=== PATIENT | male | born 1955 | race Caucasian/White ===

== ENCOUNTER 2023-02-16 16:22 | Emergency (ER) | payer BC, SELFPAY ==
[2023-02-16 16:26] VITALS: BP 151/95; PULSE 117; RESP 20; TEMP 36.4; O2SAT 97; BMI 25.8
--- NOTE | 2023-02-16 16:44 | ED.GENADUL1 ---
HPI - General Adult General Chief complaint: Fall Stated complaint: NOSE INJURY Time Seen by Provider: 02/16/23 16:41 Source: patient Source information: patient Mode of arrival: walk-in Limitations: no limitations History of Present Illness HPI narrative: Patient is a 67-year-old male presents to the Emergency Room with his spouse for evaluation of laceration to his nose. Patient states this morning around 5:50 AM he had to use the restroom and quickly got up from bed and fell. Patient states he struck his lower lip and bridge of his nose. He denies any loss of consciousness. He denies any headache or visual disturbance. Patient is unsure of his last tetanus. States he attempted to control the bleeding at home, and multiple people advised him to get his laceration looked at for possible repair and for a tetanus update. Patient denies any neck pain, denies any chest pain or shortness of breath. He denies passing out and states that he was in a hurry when he tripped. He has been observed for over twelve hours without any worsening symptoms. Patient denies any dental pain but notes the inner part of his lower lip is sore. Patient denies any facial numbness or tingling. Location: Reports face Relieving factors: Reports cold therapy Exacerbating factors: Reports movement Related Data Previous Rx's Medication Instructions Recorded cephalexin 500 mg capsule 500 mg PO TID 5 days #15 caps 02/16/23 Allergies Allergy/AdvReac Type Severity Reaction Status Date / Time No Known Drug Allergies Allergy Verified 02/16/23 16:52 Review of Systems ROS Constitutional Denies: fever or chills Ears, nose, mouth, and throat Reports: mouth pain; Denies: throat pain, neck pain, difficulty swallowing or swelling of lips/tongue Cardiovascular Denies: chest pain Respiratory Denies: shortness of breath or cough Gastrointestinal Denies: abdominal pain Musculoskeletal Denies: back pain or neck pain Neurological Denies: headache, weakness in extremities, lack of coordination, behavioral changes or slurred speech Psychiatric Denies: anxiety PFSH PFSH Social History Smoking status: Never smoker Exam Narrative Exam Narrative: Nurses notes and vital signs reviewed and patient is not hypoxic. General: The patient appears well and in no apparent distress. Patient is resting comfortably on cart. Skin: Warm, dry, no pallor noted. 2 cm left inguinal-like laceration to the bridge of the nose. Mild symmetric swelling noted to the bridge of the nose. Head: Normocephalic, atraumatic with exception to laceration to the bridge of his nose. Facial sensation equal and symmetric frontal maxillary and submandibular. Neck: Supple, trachea mid-line, no tenderness, no lymphadenopathy Eye: Pupils are equal, round and reactive to light, EOMI, no evidence of palsy or diplopia on exam. Ears, Nose, Mouth, and Throat: TM are clear, normal light reflex, mild cerumen in bilateral canals, no hemotympanum. No evidence of acute epistaxis with inspection of the nares. Patient breathes out of both nares easily without discomfort. Oral mucosa is moist, healing laceration in the inner lower lip, mucosal surface. No dental tenderness. No posterior oropharynx erythema or hypertrophy, uvula is mid-line, tongue without injury. Cardiovascular: Regular Rate and Rhythm Respiratory: Patient is in no distress, no accessory muscle use, lungs are clear to auscultation, no wheezing, rales or rhonchi. Chest Wall: no tenderness Back: non-tender, no CVA tenderness, denies pain to the cervical, thoracic, or lumbar spine. Musculoskeletal: normal ROM, no tenderness, no swelling GI: Normal bowel sounds, no tenderness to palpation, no masses appreciated. No rebound, guarding, or rigidity noted. Neurological: A&O x4, patient walks well. Psychiatric: Cooperative Constitutional Vital Signs - 24 hr 02/16/23 16:26 Temperature 97.6 F Pulse Rate [Monitor] 117 H Respiratory Rate 20 Blood Pressure [Left Arm] 151/95 H Pulse Oximetry 97 Oxygen Delivery Method Room Air Course Vital Signs Vital signs: Vital Signs Temperature 97.6 F 02/16/23 16:26 Pulse Rate 117 H 02/16/23 16:26 Respiratory Rate 20 02/16/23 16:26 Blood Pressure 151/95 H 02/16/23 16:26 Pulse Oximetry 97 02/16/23 16:26 Oxygen Delivery Method Room Air 02/16/23 16:26 Temperature 97.6 F 02/16/23 16:26 Pulse Rate 117 H 02/16/23 16:26 Respiratory Rate 20 02/16/23 16:26 Blood Pressure 151/95 H 02/16/23 16:26 Pulse Oximetry 97 02/16/23 16:26 Oxygen Delivery Method Room Air 02/16/23 16:26 Medical Decision Making [facility] Narrative Medical decision making narrative: Patient presents twelve hours status post fall at home, laceration of the bridge of his nose that keeps opening when he smiles, with rebleeding. Prompting Emergency Room visit. Patient denies headache or visual disturbance. Walks with steady gait. Also requiring a tetanus update. Patient advised to rinse his mouth after meals, observation of intraoral laceration. We discussed suture removal in 5-7 days, optimal skincare for healing. Patient be placed on antibiotic for five days to take with food with risks and benefits discussed. Patient and spouse agreeable with recommendations. [place] discussion at the bedside regarding imaging, patient is without any cervical spine tenderness, no symptoms of closed head injury requiring CT scan and facial CT scan discussed with concerns of possible nasal bone fracture and patient would like to wait for swelling to subside before any further consideration with discussion for ENT follow-up as needed . Verbal and written closed head injury instructions discussed, patient is ready been over twelve hours with out any developing symptoms. The patient is to followup with primary care physician in next 5-7 days or to return to the emergency department should any of the signs or symptoms worsen or new symptoms develop. Patient had questions answered. The patient agrees with the following Diagnosis and Treatment plan and the patient will be discharged home. Discharge Plan Discharge Chief Complaint: Fall Clinical Impression: Intraoral laceration, Closed head injury, Laceration of nose Patient Disposition: Home, Self-Care Time of Disposition Decision: 05:30 Condition: Good Prescriptions / Home Meds: New cephalexin 500 mg capsule 500 mg PO TID 5 Days Qty: 15 0RF Instructions: Care For Your Stitches (ED), Head Injury (ED), Facial Laceration (ED) Stand Alone Forms: Portal Instructions Referrals: BEKA CANNON [Primary Care Provider] - 1 week Procedures ED Procedure Instructions Procedures Procedures: Laceration repair: Done under sterile conditions. The use of Betadine was used to prep and clean the area. Topical let applied. The wound was irrigated copiously with normal saline. The wound was explored there was no evidence of foreign material. The laceration was approximated with 6-0 nylon. 6 simple interrupted sutures were placed. Patient tolerated the procedure well. The patient was neurovascularly intact post. the patient had bacitracin applied to the laceration and a dry sterile dressing was place. The patient will need to follow-up in the next 5-7 days for removal.
[2023-02-16] MEDS: ADACEL DIPH,PERTUSS(ACELL),TET VAC/PF 0.5 ML ADULT SYRINGE IM (17:08)
[2023-02-16 17:29] VITALS: BP 158/87; PULSE 97; RESP 18; O2SAT 97
== END 2023-02-16 17:30 | disposition home or self-care (01) ==
PROVIDERS: Emergency Provider Emergency Medicine; PCP Family Medicine
DX: S01.21XA Laceration without foreign body of nose, initial encounter (principal); S09.8XXA Other specified injuries of head, initial encounter; S01.511A Laceration without foreign body of lip, initial encounter; Z23 Encounter for immunization; W19.XXXA Unspecified fall, initial encounter
CPT/HCPCS: 12011; 90471; 90715; 99283

== ENCOUNTER 2023-07-18 14:56 | Emergency (ER) | payer BC, SELFPAY ==
[2023-07-18 15:06] VITALS: BP 119/59; PULSE 73; RESP 18; TEMP 36.5; O2SAT 100; BMI 23.7
--- NOTE | 2023-07-18 15:35 | PC.NURSE ---
Patient reports having pain in mid abdomen that occurs approx. 30 minutes after eating. Reports no abdominal pain or nausea at present.
--- NOTE | 2023-07-18 16:17 | ED_ITS ---
Documented by User: Franc Lee MD 07/18/23 19:39 HPI - Nausea/Vomiting/Diarrhea General Chief complaint: Nausea/Vomiting/Diarrhea Stated complaint: NASEAU Time Seen by Provider: 07/18/23 16:13 Source: patient Mode of arrival: walk-in Limitations: no limitations History of Present Illness HPI Narrative: patient's here for evaluation of abdominal pain he has had off and on for three weeks. Yesterday, Thanksgiving he is able to suffer through at least three or four beers some turkey and potatoes. Today he's got diffuse abdominal cramping. He is not running a fever. He has no difficulty urinating. He's keeping fluids down. He states he's tried some Zofran but is not helping. He has not seen change in his stools is not a copious diarrhea. He's not been on any antibiotics recently. He's not had upper endoscopy recently. Related Data Home Medications Medication Instructions Recorded Confirmed diltiazem HCl 180 mg 240 mg PO DAILY 07/18/23 07/18/23 capsule,extended release 24 hr finasteride 5 mg tablet 5 mg PO DAILY 07/18/23 07/18/23 losartan 100 mg tablet 100 mg PO DAILY 07/18/23 07/18/23 metoprolol succinate 100 mg 100 mg PO DAILY 07/18/23 07/18/23 tablet,extended release 24 hr ondansetron HCl 4 mg tablet 4 mg PO DAILY PRN nausea and 07/18/23 07/18/23 vomiting potassium gluconate 595 mg (99 mg) 595 mg PO DAILY 07/18/23 07/18/23 tablet tamsulosin 0.4 mg capsule 0.4 mg PO DAILY 07/18/23 07/18/23 Previous Rx's Medication Instructions Recorded hyoscyamine sulfate 0.125 mg 0.125 mg PO Q6H PRN abdominal pain 07/18/23 sublingual tablet (Levsin/SL) #20 tabs ondansetron 4 mg disintegrating 4 mg PO Q6H PRN nausea and 07/18/23 tablet vomiting #20 tabs Allergies Allergy/AdvReac Type Severity Reaction Status Date / Time No Known Drug Allergies Allergy Verified 02/16/23 16:52 PFSH PFSH Social History Smoking status: Never smoker Exam Narrative Exam Narrative: awake alert vital signs as noted completely normal. Does not appear ill he moves about comfortably with no hesitation grimacing or discomfort with movement. Problem focused examination on the HEENT shows no evidence of scleral icterus pallor or anemia. Respiratory shows no cough congestion or pulmonary complaints. Abdominal exam shows active bowel sounds no guarding rebound or rigidity. No tenderness at McBurney's point. Granados sign is negative. No surgical incisions are noted. No inguinal or umbilical hernias are noted. No tenderness on the left side to suggest diverticular problems. Extremities show no evidence of edema phlebitis or swelling Constitutional Vital Signs, click to edit/add: Last Vital Signs Temp 97.7 F 07/18/23 15:06 Pulse 76 07/18/23 19:15 Resp 18 07/18/23 19:15 BP 118/74 07/18/23 19:15 Pulse Ox 96 07/18/23 19:15 O2 Del Method Room Air 07/18/23 15:06 Course Vital Signs Vital signs: Vital Signs Temperature 97.7 F 07/18/23 15:06 Pulse Rate 73 07/18/23 15:06 Respiratory Rate 18 07/18/23 15:06 Blood Pressure 119/59 07/18/23 15:06 Pulse Oximetry 100 07/18/23 15:06 Oxygen Delivery Method Room Air 07/18/23 15:06 Temperature 97.7 F 07/18/23 15:06 Pulse Rate 76 07/18/23 19:15 Respiratory Rate 18 07/18/23 19:15 Blood Pressure 118/74 07/18/23 19:15 Pulse Oximetry 96 07/18/23 19:15 Oxygen Delivery Method Room Air 07/18/23 15:06 MDM - Nausea/Vomiting/Diarrhea Lab Data Attestation: I reviewed the patient's lab results. Labs: Lab Results 07/18/23 Range/Units 17:00 WBC 7.0 (4.0-11.0) 10^3/uL RBC 4.50 L (4.70-6.10) 10^6/uL Hgb 13.4 L (14.0-18.0) g/dL Hct 40.4 L (42.0-54.0) % MCV 89.8 (80.0-94.0) fL MCH 29.8 (25.9-34.0) pg MCHC 33.2 (29.9-35.2) g/dL RDW 11.7 (11.0-15.0) % Plt Count 265 (150-450) 10^3/uL MPV 10.6 (9.5-13.5) fL Neut % (Auto) 63.1 (43.0-75.0) % Lymph % (Auto) 18.3 L (20.5-60.0) % Turner % (Auto) 14.4 H (1.7-12.0) % Eos % (Auto) 3.3 (0.9-7.0) % Baso % (Auto) 0.6 (0.2-2.0) % Neut # (Auto) 4.4 (1.4-6.5) 10^3/uL Lymph # (Auto) 1.3 (1.2-3.8) 10^3/uL Turner # (Auto) 1.0 H (0.3-0.8) 10^3/uL Eos # (Auto) 0.2 (0.0-0.7) 10^3/uL Baso # (Auto) 0.0 (0.0-0.1) 10^3/uL Abs Immat Gran (auto) 0.02 (0.00-0.03) 10^3/uL Imm/Tot Granulo (auto) 0.3 (0.0-0.5) % Sodium 133 L (136-145) mmol/L Potassium 3.5 (3.5-5.1) mmol/L Chloride 91 L (98-107) mmol/L Carbon Dioxide 39.3 H (21.0-32.0) mmol/L Anion Gap 6.2 BUN 23.0 H (7.0-18.0) mg/dL Creatinine 2.30 H (0.70-1.30) mg/dL Est GFR ( Amer) 34 L (>=60) Est GFR (Non-Af Amer) 28 L (>=60) BUN/Creatinine Ratio 10.0 Glucose 96 (74-106) mg/dL Lactate 1.1 (0.4-2.0) mmol/L Calcium 9.3 (8.5-10.1) mg/dL Total Bilirubin 0.6 (0.2-1.0) mg/dL Direct Bilirubin 0.2 (0.0-0.2) mg/dL AST 18 (15-37) U/L ALT 15 L (16-63) U/L Alkaline Phosphatase 86 (46-116) U/L Troponin I High Sens 8.5 (4.0-76.1) pg/mL Total Protein 8.3 H (6.4-8.2) g/dL Albumin 4.0 (3.4-5.0) g/dL Globulin 4.3 g/dL Albumin/Globulin Ratio 0.9 Lipase 138.0 H (16.0-77.0) U/L Urine Color Yellow (YELLOW) Urine Clarity Clear (CLEAR) Urine pH 6.0 (5.0-9.0) Ur Specific [place] 1.020 (1.005-1.025) Urine Protein Trace (NEG/TRACE) mg/dL Urine Glucose (UA) Negative (NEGATIVE) mg/dL Urine Ketones Trace A (NEGATIVE) mg/dL Urine Occult Blood Negative (NEGATIVE) Urine Nitrite Negative (NEGATIVE) Urine Bilirubin Negative (NEGATIVE) Urine Urobilinogen 0.2 (0.2-1.0) EU/dL Ur Leukocyte Esterase Negative (NEGATIVE) Imaging Data CT scan - abdomen: Radiologist's impression: Patient Name: AISHA CLINTON MRN: [id number] date: 1955 Sex: M Assigned Patient Location: Current Patient Location: Accession/Order Number: [id number] Exam Date: 07/18/2023 18:09 Report Date: 07/18/2023 19:25 At the request of: FRANC LEE Procedure: CT abdomen pelvis wo con EXAMINATION: CT ABDOMEN AND PELVIS WITHOUT IV CONTRAST CLINICAL HISTORY: Nausea and vomiting with abdominal pain TECHNIQUE: Non-IV contrast imaging of the abdomen and pelvis was performed using standard technique, scanning from just above the dome of the diaphragm to the symphysis pubis. Unenhanced imaging is limited for the evaluation of some intra-abdominal and pelvic pathology. All CT scans at this facility use dose modulation, iterative reconstruction, and/or weight based dosing when appropriate to reduce radiation dose to as low as reasonably achievable. Contrast: IV: None COMPARISON: None. RESULT: Abdomen / Pelvis: Liver: Unremarkable. Biliary: The gallbladder is unremarkable. Spleen: No splenomegaly. Pancreas: Unremarkable. Adrenals: Normal. Kidneys: No calculus, hydronephrosis or finding to suggest a cyst or mass in the unenhanced kidney. GI Tract: Fluid-filled moderately distended stomach. No bowel dilation or wall thickening. Colonic diverticulosis without diverticulitis. Moderate colonic stool. Lymph Nodes: Several enlarged retroperitoneal and mesenteric nodes. For example 6 15 mm left para-aortic node (series 3 image 60), 21 mm mesenteric node (image 75) total millimeter right lower quadrant mesenteric node with dystrophic calcification (image 83) and another node with dystrophic calcification also in the right upper quadrant (image 70), which measures 24 mm. Mesentery/peritoneum: Mild mesenteric soft tissue stranding. No pneumoperitoneum. Retroperitoneum: No mass. Vasculature: No abdominal aortic or iliac artery aneurysm. Pelvis: No mass or ascites. Circumferential urinary bladder wall thickening. 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 Degenerative changes of the lumbar spine. Lower thorax: Bibasilar atelectasis. IMPRESSION: 1. Multiple enlarged retroperitoneal and mesenteric lymph nodes, some of which have dystrophic calcifications. Findings may be secondary to a lymphoproliferative process such as lymphoma or carcinoid. Recommend further evaluation with PET/CT or MRI of the abdomen. 2. Fluid-filled moderately distended stomach concerning for gastric outlet obstruction. Otherwise, no bowel dilation or significant wall thickening. Electronically authenticated by: EDDY LEARY Date: 07/18/2023 19:25 Discharge Plan Discharge Chief Complaint: Nausea/Vomiting/Diarrhea Clinical Impression: Acute renal injury, Intra-abdominal lymphadenopathy, Pancreatitis, Abdominal pain Patient Disposition: Home, Self-Care Time of Disposition Decision: 20:01 Prescriptions / Home Meds: New hyoscyamine sulfate [Levsin/SL] 0.125 mg tablet, sublingual 0.125 mg PO Q6H PRN (Reason: abdominal pain) Qty: 20 0RF ondansetron 4 mg tablet,disintegrating 4 mg PO Q6H PRN (Reason: nausea and vomiting) Qty: 20 0RF No Action diltiazem HCl 180 mg capsule,extended release 24hr 240 mg PO DAILY finasteride 5 mg tablet 5 mg PO DAILY losartan 100 mg tablet 100 mg PO DAILY metoprolol succinate 100 mg tablet extended release 24 hr 100 mg PO DAILY ondansetron HCl 4 mg tablet 4 mg PO DAILY PRN (Reason: nausea and vomiting) tamsulosin 0.4 mg capsule 0.4 mg PO DAILY potassium gluconate 595 mg (99 mg) tablet 595 mg PO DAILY Instructions: Pancreatitis (ED), Acute Kidney Injury (DC), Lymphadenopathy (ED), Abdominal Pain (ED) Stand Alone Forms: Portal Instructions Referrals: BEKA CANNON [Primary Care Provider] - 1 week Discharge Date/Time: 07/18/23 20:28 Documented by User: Andrew Aponte 07/19/23 00:01 HPI - Nausea/Vomiting/Diarrhea General Chief complaint: Nausea/Vomiting/Diarrhea Stated complaint: NASEAU Time Seen by Provider: 07/18/23 16:13 Related Data Home Medications Medication Instructions Recorded Confirmed diltiazem HCl 180 mg 240 mg PO DAILY 07/18/23 07/18/23 capsule,extended release 24 hr finasteride 5 mg tablet 5 mg PO DAILY 07/18/23 07/18/23 losartan 100 mg tablet 100 mg PO DAILY 07/18/23 07/18/23 metoprolol succinate 100 mg 100 mg PO DAILY 07/18/23 07/18/23 tablet,extended release 24 hr ondansetron HCl 4 mg tablet 4 mg PO DAILY PRN nausea and 07/18/23 07/18/23 vomiting potassium gluconate 595 mg (99 mg) 595 mg PO DAILY 07/18/23 07/18/23 tablet tamsulosin 0.4 mg capsule 0.4 mg PO DAILY 07/18/23 07/18/23 Previous Rx's Medication Instructions Recorded hyoscyamine sulfate 0.125 mg 0.125 mg PO Q6H PRN abdominal pain 07/18/23 sublingual tablet (Levsin/SL) #20 tabs ondansetron 4 mg disintegrating 4 mg PO Q6H PRN nausea and 07/18/23 tablet vomiting #20 tabs Allergies Allergy/AdvReac Type Severity Reaction Status Date / Time No Known Drug Allergies Allergy Verified 02/16/23 16:52 PFSH PFSH Social History Smoking status: Never smoker Exam Constitutional Vital Signs, click to edit/add: Last Vital Signs Temp 97.7 F 07/18/23 15:06 Pulse 76 07/18/23 19:15 Resp 18 07/18/23 19:15 BP 118/74 07/18/23 19:15 Pulse Ox 96 07/18/23 19:15 O2 Del Method Room Air 07/18/23 15:06 Course Vital Signs Vital signs: Vital Signs Temperature 97.7 F 07/18/23 15:06 Pulse Rate 73 07/18/23 15:06 Respiratory Rate 18 07/18/23 15:06 Blood Pressure 119/59 07/18/23 15:06 Pulse Oximetry 100 07/18/23 15:06 Oxygen Delivery Method Room Air 07/18/23 15:06 Temperature 97.7 F 07/18/23 15:06 Pulse Rate 76 07/18/23 19:15 Respiratory Rate 18 07/18/23 19:15 Blood Pressure 118/74 07/18/23 19:15 Pulse Oximetry 96 07/18/23 19:15 Oxygen Delivery Method Room Air 07/18/23 15:06 MDM - Nausea/Vomiting/Diarrhea MDM Narrative Medical decision making narrative: Patient signed out to me at 7pm shift change- he had labs showing normal WBC, unremarkable CBC, elevated BUn and Cr and normal electrolytes. His PCP had already talked about his elevated BUN & Cr which were noted on prior yearly blood testing - he may have hepatorenal syndrome so out-patient PCP follow up will be important to further monitor his renal function. Lipase slightly elevated in the senior living, chronic alcohol user. He received 2 liters of NS IVF and he and I discussed the importance of alcohol reduction, increased intake on non-alcoholic fluids and shifting to low calorie soft bland diet for the next few days. His CT showed prominent lymphadenopathy - concern for carcinoid or lymphoma - He was given a copy of the radiologist's report and will see Dr cannon for out- patient PET/CT or MRI abdomen. ED return if worse He was discharged home with prescriptions for Levsin and Zofran and told me he understood the importance of follow up and thanked me for his care. - Basia, DO Lab Data Labs: Lab Results 07/18/23 Range/Units 17:00 WBC 7.0 (4.0-11.0) 10^3/uL RBC 4.50 L (4.70-6.10) 10^6/uL Hgb 13.4 L (14.0-18.0) g/dL Hct 40.4 L (42.0-54.0) % MCV 89.8 (80.0-94.0) fL MCH 29.8 (25.9-34.0) pg MCHC 33.2 (29.9-35.2) g/dL RDW 11.7 (11.0-15.0) % Plt Count 265 (150-450) 10^3/uL MPV 10.6 (9.5-13.5) fL Neut % (Auto) 63.1 (43.0-75.0) % Lymph % (Auto) 18.3 L (20.5-60.0) % Turner % (Auto) 14.4 H (1.7-12.0) % Eos % (Auto) 3.3 (0.9-7.0) % Baso % (Auto) 0.6 (0.2-2.0) % Neut # (Auto) 4.4 (1.4-6.5) 10^3/uL Lymph # (Auto) 1.3 (1.2-3.8) 10^3/uL Turner # (Auto) 1.0 H (0.3-0.8) 10^3/uL Eos # (Auto) 0.2 (0.0-0.7) 10^3/uL Baso # (Auto) 0.0 (0.0-0.1) 10^3/uL Abs Immat Gran (auto) 0.02 (0.00-0.03) 10^3/uL Imm/Tot Granulo (auto) 0.3 (0.0-0.5) % Sodium 133 L (136-145) mmol/L Potassium 3.5 (3.5-5.1) mmol/L Chloride 91 L (98-107) mmol/L Carbon Dioxide 39.3 H (21.0-32.0) mmol/L Anion Gap 6.2 BUN 23.0 H (7.0-18.0) mg/dL Creatinine 2.30 H (0.70-1.30) mg/dL Est GFR ( Amer) 34 L (>=60) Est GFR (Non-Af Amer) 28 L (>=60) BUN/Creatinine Ratio 10.0 Glucose 96 (74-106) mg/dL Lactate 1.1 (0.4-2.0) mmol/L Calcium 9.3 (8.5-10.1) mg/dL Total Bilirubin 0.6 (0.2-1.0) mg/dL Direct Bilirubin 0.2 (0.0-0.2) mg/dL AST 18 (15-37) U/L ALT 15 L (16-63) U/L Alkaline Phosphatase 86 (46-116) U/L Troponin I High Sens 8.5 (4.0-76.1) pg/mL Total Protein 8.3 H (6.4-8.2) g/dL Albumin 4.0 (3.4-5.0) g/dL Globulin 4.3 g/dL Albumin/Globulin Ratio 0.9 Lipase 138.0 H (16.0-77.0) U/L Urine Color Yellow (YELLOW) Urine Clarity Clear (CLEAR) Urine pH 6.0 (5.0-9.0) Ur Specific [place] 1.020 (1.005-1.025) Urine Protein Trace (NEG/TRACE) mg/dL Urine Glucose (UA) Negative (NEGATIVE) mg/dL Urine Ketones Trace A (NEGATIVE) mg/dL Urine Occult Blood Negative (NEGATIVE) Urine Nitrite Negative (NEGATIVE) Urine Bilirubin Negative (NEGATIVE) Urine Urobilinogen 0.2 (0.2-1.0) EU/dL Ur Leukocyte Esterase Negative (NEGATIVE) Discharge Plan Discharge Chief Complaint: Nausea/Vomiting/Diarrhea Clinical Impression: Acute renal injury, Intra-abdominal lymphadenopathy, Pancreatitis, Abdominal pain Patient Disposition: Home, Self-Care Time of Disposition Decision: 20:01 Prescriptions / Home Meds: New hyoscyamine sulfate [Levsin/SL] 0.125 mg tablet, sublingual 0.125 mg PO Q6H PRN (Reason: abdominal pain) Qty: 20 0RF ondansetron 4 mg tablet,disintegrating 4 mg PO Q6H PRN (Reason: nausea and vomiting) Qty: 20 0RF No Action diltiazem HCl 180 mg capsule,extended release 24hr 240 mg PO DAILY finasteride 5 mg tablet 5 mg PO DAILY losartan 100 mg tablet 100 mg PO DAILY metoprolol succinate 100 mg tablet extended release 24 hr 100 mg PO DAILY ondansetron HCl 4 mg tablet 4 mg PO DAILY PRN (Reason: nausea and vomiting) tamsulosin 0.4 mg capsule 0.4 mg PO DAILY potassium gluconate 595 mg (99 mg) tablet 595 mg PO DAILY Instructions: Pancreatitis (ED), Acute Kidney Injury (DC), Lymphadenopathy (ED), Abdominal Pain (ED) Stand Alone Forms: Portal Instructions Referrals: BEKA CANNON [Primary Care Provider] - 1 week Discharge Date/Time: 07/18/23 20:28
[2023-07-18 16:51] VITALS: BP 100/69; PULSE 72; RESP 18; O2SAT 10
[2023-07-18 17:11] LABS: Basophils Percent Auto 0.6 % (0.2-2.0); Eosinophils Absolute Auto 0.2 10^3/uL (0.0-0.7); Eosinophils Percent Auto 3.3 % (0.9-7.0); Hematocrit 40.4 % (42.0-54.0); Hemoglobin 13.4 g/dL (14.0-18.0); Immature Granulocytes Abs Auto 0.02 10^3/uL (0.00-0.03); Immature Granulocytes Pct Auto 0.3 % (0.0-0.5); Lymphocytes Absolute Auto 1.3 10^3/uL (1.2-3.8); Lymphocytes Percent Auto 18.3 % (20.5-60.0); Mean Corpuscular HGB Conc 33.2 g/dL (29.9-35.2); Mean Corpuscular Hemoglobin 29.8 pg (25.9-34.0); Mean Corpuscular Volume 89.8 fL (80.0-94.0); Mean Platelet Volume 10.6 fL (9.5-13.5); Monocytes Percent Auto 14.4 % (1.7-12.0); Neutrophils Absolute Auto 4.4 10^3/uL (1.4-6.5); Neutrophils Percent Auto 63.1 % (43.0-75.0); Platelet Count 265 10^3/uL (150-450); Red Cell Distribution Width 11.7 % (11.0-15.0)
[2023-07-18 17:15] LABS: Bilirubin Urine NEGATIVE (NEGATIVE); Blood Urine NEGATIVE (NEGATIVE); Clarity Urine CLEAR (CLEAR); Color Urine YELLOW (YELLOW); Glucose Urine UA NEGATIVE (NEGATIVE); Ketones Urine TRACE mg/dL (NEGATIVE); Leukocyte Esterase Urine NEGATIVE (NEGATIVE); Nitrite Urine NEGATIVE (NEGATIVE); Protein Urine TRACE mg/dL (NEG/TRACE); Urobilinogen Urine 0.2 EU/dL (0.2-1.0)
[2023-07-18] MEDS: 0.9 % SODIUM CHLORIDE 1,000 ML 100 ML IV (17:17)
[2023-07-18 17:31] LABS: Alanine Aminotransferase 15 U/L (16-63); Albumin Globulin Ratio 0.9; Alkaline Phosphatase 86 U/L (46-116); Anion Gap 6.2; Aspartate Amino Transferase 18 U/L (15-37); Bilirubin Direct 0.2 mg/dL (0.0-0.2); Bilirubin Total 0.6 mg/dL (0.2-1.0); Calcium 9.3 mg/dL (8.5-10.1); Carbon Dioxide 39.3 mmol/L (21.0-32.0); Chloride 91 mmol/L (98-107); Estimated GFR (African America 34 (>=60); Estimated GFR (Non-African Ame 28 (>=60); Globulin 4.3 g/dL; Glucose 96 mg/dL (74-106); Potassium 3.5 mmol/L (3.5-5.1); Sodium 133 mmol/L (136-145); Total Protein 8.3 g/dL (6.4-8.2); Troponin I High Sensitivity 8.5 pg/mL (4.0-76.1)
[2023-07-18 17:33] LABS: Lactate/Lactic Acid 1.1 mmol/L (0.4-2.0)
--- NOTE | 2023-07-18 17:49 | CT_ITS ---
The [address] [address] Patient Name: AISHA CLINTON MRN: [id number] date: 1955 Sex: M Assigned Patient Location: ER Current Patient Location: Accession/Order Number: [id number] Exam Date: 07/18/2023 18:09 Report Date: 07/18/2023 19:25 At the request of: ALVARADO BOOTHE Procedure: CT abdomen pelvis wo con EXAMINATION: CT ABDOMEN AND PELVIS WITHOUT IV CONTRAST CLINICAL HISTORY: Nausea and vomiting with abdominal pain TECHNIQUE: Non-IV contrast imaging of the abdomen and pelvis was performed using standard technique, scanning from just above the dome of the diaphragm to the symphysis pubis. Unenhanced imaging is limited for the evaluation of some intra-abdominal and pelvic pathology. All CT scans at this facility use dose modulation, iterative reconstruction, and/or weight based dosing when appropriate to reduce radiation dose to as low as reasonably achievable. Contrast: IV: None COMPARISON: None. RESULT: Abdomen / Pelvis: Liver: Unremarkable. Biliary: The gallbladder is unremarkable. Spleen: No splenomegaly. Pancreas: Unremarkable. Adrenals: Normal. Kidneys: No calculus, hydronephrosis or finding to suggest a cyst or mass in the unenhanced kidney. GI Tract: Fluid-filled moderately distended stomach. No bowel dilation or wall thickening. Colonic diverticulosis without diverticulitis. Moderate colonic stool. Lymph Nodes: Several enlarged retroperitoneal and mesenteric nodes. For example 6 15 mm left para-aortic node (series 3 image 60), 21 mm mesenteric node (image 75) total millimeter right lower quadrant mesenteric node with dystrophic calcification (image 83) and another node with dystrophic calcification also in the right upper quadrant (image 70), which measures 24 mm. Mesentery/peritoneum: Mild mesenteric soft tissue stranding. No pneumoperitoneum. Retroperitoneum: No mass. Vasculature: No abdominal aortic or iliac artery aneurysm. Pelvis: No mass or ascites. Circumferential urinary bladder wall thickening. 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 Degenerative changes of the lumbar spine. Lower thorax: Bibasilar atelectasis. CT/CT abdomen pelvis wo con IMPRESSION: 1. Multiple enlarged retroperitoneal and mesenteric lymph nodes, some of which have dystrophic calcifications. Findings may be secondary to a lymphoproliferative process such as lymphoma or carcinoid. Recommend further evaluation with PET/CT or MRI of the abdomen. 2. Fluid-filled moderately distended stomach concerning for gastric outlet obstruction. Otherwise, no bowel dilation or significant wall thickening. Electronically authenticated by: EDDY LEARY Date: 07/18/2023 19:25
[2023-07-18 19:15] VITALS: BP 118/74; PULSE 76; RESP 18; O2SAT 96
== END 2023-07-18 20:28 | disposition home or self-care (01) ==
PROVIDERS: Emergency Medicine Emergency Medical Services; Emergency Provider Emergency Medicine; PCP Family Medicine
DX: R10.9 Unspecified abdominal pain (principal); N17.9 Acute kidney failure, unspecified; R59.0 Localized enlarged lymph nodes; K85.90 Acute pancreatitis without necrosis or infection, unspecified; Z79.899 Other long term (current) drug therapy
CPT/HCPCS: 36415; 74176; 80053; 80076; 81003; 83605; 83690; 84484; 85025; 96360; 99284

== ENCOUNTER 2023-07-24 09:46 | Outpatient (OUT) | payer BC, SELFPAY ==
[2023-07-24 10:05] LABS: Basophils Percent Auto 0.5 % (0.2-2.0); Eosinophils Absolute Auto 0.1 10^3/uL (0.0-0.7); Eosinophils Percent Auto 1.1 % (0.9-7.0); Hematocrit 39.6 % (42.0-54.0); Hemoglobin 13.1 g/dL (14.0-18.0); Immature Granulocytes Abs Auto 0.04 10^3/uL (0.00-0.03); Immature Granulocytes Pct Auto 0.5 % (0.0-0.5); Lymphocytes Absolute Auto 0.7 10^3/uL (1.2-3.8); Lymphocytes Percent Auto 8.2 % (20.5-60.0); Mean Corpuscular HGB Conc 33.1 g/dL (29.9-35.2); Mean Corpuscular Hemoglobin 29.6 pg (25.9-34.0); Mean Corpuscular Volume 89.6 fL (80.0-94.0); Monocytes Absolute Auto 1.3 10^3/uL (0.3-0.8); Monocytes Percent Auto 15.3 % (1.7-12.0); Neutrophils Absolute Auto 6.3 10^3/uL (1.4-6.5); Neutrophils Percent Auto 74.4 % (43.0-75.0); Platelet Count 230 10^3/uL (150-450); Red Blood Count 4.42 10^6/uL (4.70-6.10); Red Cell Distribution Width 11.6 % (11.0-15.0); White Blood Count 8.5 10^3/uL (4.0-11.0)
[2023-07-24 10:23] LABS: Alanine Aminotransferase 19 U/L (16-63); Albumin Globulin Ratio 0.9; Albumin Level 3.9 g/dL (3.4-5.0); Alkaline Phosphatase 82 U/L (46-116); Anion Gap 11.6; Aspartate Amino Transferase 27 U/L (15-37); BUN Creatinine Ratio 11.7; Bilirubin Total 0.9 mg/dL (0.2-1.0); Calcium 9.1 mg/dL (8.5-10.1); Carbon Dioxide 37.9 mmol/L (21.0-32.0); Chloride 88 mmol/L (98-107); Chol HDL Ratio 2.4; Cholesterol 148 mg/dL (<=200); Estimated GFR (African America 14 (>=60); Estimated GFR (Non-African Ame 12 (>=60); Globulin 4.2 g/dL; Glucose 108 mg/dL (74-106); HDL Cholesterol 62 mg/dL (40-60); Potassium 3.5 mmol/L (3.5-5.1); Sodium 134 mmol/L (136-145); Total Protein 8.1 g/dL (6.4-8.2); Triglycerides 62 mg/dL (<=150); VLDL CHOLESTEROL 12.4 mg/dL
[2023-07-24 10:33] LABS: Ammonia <10 umol/L (11-32)
== END 2023-07-24 09:47 | disposition home or self-care (01) ==
LOC: LAB 09:48
PROVIDERS: PCP Family Medicine; Visit Provider Family Medicine
DX: R10.84 Generalized abdominal pain (principal); N17.9 Acute kidney failure, unspecified; K85.90 Acute pancreatitis without necrosis or infection, unspecified; R59.0 Localized enlarged lymph nodes; D64.9 Anemia, unspecified
CPT/HCPCS: 36415; 80053; 80061; 82140; 85025

== ENCOUNTER 2023-07-31 11:31 | Outpatient (OUT) | payer BC, SELFPAY ==
[2023-07-31 12:49] LABS: BUN Creatinine Ratio 10.7; Calcium 8.9 mg/dL (8.5-10.1); Carbon Dioxide 20.8 mmol/L (21.0-32.0); Chloride 101 mmol/L (98-107); Estimated GFR (African America 56 (>=60); Estimated GFR (Non-African Ame 47 (>=60); Glucose 83 mg/dL (74-106); Potassium 3.8 mmol/L (3.5-5.1); Sodium 136 mmol/L (136-145)
== END 2023-07-31 11:32 | disposition home or self-care (01) ==
LOC: LAB 11:32
PROVIDERS: PCP Family Medicine
DX: N17.9 Acute kidney failure, unspecified (principal)
CPT/HCPCS: 36415; 80048

== ENCOUNTER 2023-07-31 11:34 | Outpatient (OUT) | payer BC, SELFPAY ==
[2023-07-31 13:05] LABS: Prostate Specific Antigen Dx 1.82 ng/mL (<=4.00)
== END 2023-07-31 11:35 | disposition home or self-care (01) ==
PROVIDERS: PCP Family Medicine; Visit Provider Family Medicine
DX: Z12.5 Encounter for screening for malignant neoplasm of prostate (principal); N40.1 Benign prostatic hyperplasia with lower urinary tract symptoms; R35.0 Frequency of micturition; R39.89 Other symptoms and signs involving the genitourinary system; N17.9 Acute kidney failure, unspecified
CPT/HCPCS: 36415; 80048; 84153

== ENCOUNTER 2023-09-09 12:19 | Outpatient (REF) | payer BC, SELFPAY ==
--- OUTSIDE RECORDS SUMMARY | 2023-09-09 12:23 | XMS_ITS | CCD ---
Author Name Unknown Address [address] [place] [address] Organization [facility] Care Team Providers Care Landcare Facilitator Name Role Phone DAVIS, DR IRELAND Admitting Unavailable HEMEYER, DR IRELAND Attending Unavailable HEMEYER, DR IRELAND Primary Care Unavailable HEMEYER, DR IRELAND Consulting Unavailable KATHRYN, DR DEBORAH Carl Consulting Unavailable DOUGLAS GUTIERREZ Admitting Unavailable MATT, DOUGLAS Attending Unavailable DAVIS, DR IRELAND Primary Care Unavailable KATHRYN, DR DEBORAH Carl Consulting Unavailable VIGESDOUGLAS COMBS Consulting Unavailable DAVIS, DR IRELAND Admitting Unavailable HEMEYER, DR IRELAND Attending Unavailable HEMEYER, DR IRELAND Primary Care Unavailable HEMEYER, DR IRELAND Consulting Unavailable HEMEYER, DR IRELAND Admitting Unavailable HEMEYER, DR IRELAND Attending Unavailable HEMEYER, DR IRELAND Primary Care Unavailable HEMEYER, DR IRELAND Consulting Unavailable Rene Cannon MD Primary Care Provider DOUGLAS GUTIERREZ Referring Unavailable RENE CANNON Primary Care Unavailable HEMERENE BASURTO Primary Care Unavailable VIGESAA, DOUGLAS S Referring Unavailable VIGESAA, DOUGLAS S Referring Unavailable HEMEYER, RENE Bynum Primary Care Unavailable VIGESAA, DOUGLAS S Referring Unavailable HEMESB, RENE Bynum Primary Care Unavailable VIGESAA, DOUGLAS S Referring Unavailable HEMESB, RENE Bynum Primary Care Unavailable HEMEYER, RENE Bynum Primary Care Unavailable VIGESAA, DOUGLAS S Referring Unavailable Deborah Magallanes Unavailable INOCENCIO GUTIERREZ Attending Unavailab INOCENCIO Pavon Admitting Unavailab MD Rene Ramos Primary Care Provider DO Joselito Madsen Attending Provider Arnel Madsen Referring Unavailable Dr. Rene Cannon [facility] Unava ilable Arnel Madsen Attending Unavailable Arnel Madsen Referring Unavailable Dr. Rene Cannon [facility] Unava ilable Arnel Madsen Attending Unavailable Rene Cannon Unavailable Unavailable Unavailable Emanuel Chantal Unavailable MD Rene Cannon Primary Care Provider DO Jean Paul Gutiérrez Emergency Provider MD Gela Eller Admit Provider [phone] MD Gela Eller Attending Provider [phone] MD Elsi Aziz Other Provider MD Niyah Imad Other Provider Unavailable Primary Care Provider Unavailabl e RENE CANNON Attending Unavailable RENE CANNON Attending Unavailable RENE CANNON Attending Unavailable Rene Cannon MD Primary Care Provider Asaad, Imad Unavailable NAFFOBHAVANA, SAMER A Referring Unavailable RENE CANNON [facility] Unavailab le NAFFOUJE, SAMER A Attending Unavailable NAFFOBHAVANA, SAMER A Attending Unavailable ASAAD, IMAD Referring Unavailable RENE CANNON [facility] Unavailab Joselito Cotter Admitting Unavailable Joselito Madsen Attending Unavailable Rene Cannon Primary Care Unavailable Joselito Madsen Admitting Unavailable Joselito Madsen Attending Unavailable Rene Cannon Primary Care Unavailable Rene Cannon Primary Care Unavailable Noeskgaylae, Gela Admitting Unavailable Rafita, Gela Attending Unavailable Jose A Calzada Consulting Unavailable Niyah, Imad Consulting Unavailable BOLIVAR DEAL Consulting Unavailable RENE CANNON [facility] Unavailab le NAFFOUJE, SAMER A Attending Unavailable NAFFOUJE, SAMER A Admitting Unavailable NAFFOBHAVANA, SAMER A Admitting Unavailable RENE CANNON [facility] Unavailab le NAFFOUJE, SAMER A Attending Unavailable Medications Current Medications Medication Drug Class(es) Dates Sig (Normalized) Sig (Original) Calcium-Carb 600 + D 600-125 MG-UNIT (3 sources) take 1 tablet by mouth twice daily Calcium-Carb 600 + D 600-125 MG-UNIT 1 tablet Orally Twice a day Active famotidine 20 mg oral tablet (9 sources) Histamine-2 Receptor Antagonist Start: 10-23-2021 take 1 tablet by mouth once daily famotidine (PEPCID) 20 MG tablet Take 1 tablet by mouth nightly 90 tablet 1 10/23/2021 Active potassium gluconate 2.5 meq oral tablet (4 sources) Start: 01-15-2023 take 99 mg by mouth once daily in the morning Potassium Gluconate Active 99 MG PO Every morning January 14, 2023 11:00pm Completed/Discontinued Medications Medication Drug Class(es) Dates Sig (Normalized) Sig (Original) calcium carbonate 600 mg / cholecalciferol 125 unt oral tablet (7 sources) Vitamin D Start: 11-29-2021 End: 01-15-2023 take 1 tablet by mouth once daily Calcium Carbonate-Vitamin D3 Discontinued 1 TAB PO Daily November 29, 2021 12:00am January 15, 2023 8:09am Start: 10-23-2021 take 1 tablet by seda th once daily Calcium Carb-Cholecalciferol (CALCIUM+D3) 500-400 MG-UNIT TABS Take 1 tablet by mouth daily 90 tablet 1 10/23/2021 Active Calcium Carbonate / vitamin D3 (2 sources) Start: 11-29-2021 End: 01-15-2023 take 1 tablet by mouth once daily Calcium Carbonate-Vitamin D3 Discontinued 1 TAB PO Daily November 28, 2021 11:00pm January 15, 2023 7:09am dicyclomine hydrochloride 10 mg oral capsule (9 sources) Anticholinergic Start: 11-29-2021 End: 01-15-2023 take 10 mg by mouth once daily Dicyclomine Discontinued 10 MG PO Daily November 28, 2021 11:00pm January 15, 2023 7:10am Start: 10-24-2021 take 1 capsule by mo nch once daily in the evening dicyclomine (BENTYL) 10 MG capsule Take 1 capsule by mouth every evening 360 capsule 1 10/24/2021 Active 24 hr dilTIAZem hydrochloride 180 mg extended release oral capsule (20 sources) Calcium Channel Keshawn Start: 07-24-2023 End: 07-26-2023 take 180 mg by mouth once daily Diltiazem Hcl Discontinued 180 MG PO Daily July 24, 2023 12:00am July 26, 2023 12:25pm Start: 07-10-2023 dilTIAZem CD ( CARDIZEM CD, CARTIA XT) 180 mg 24 hr capsule Take 240 mg by mouth every morning. 0 07/10/2023 Suspended Start: 10-23-2021 End: 07-24-2023 take 240 mg by mouth once daily in the morning Diltiazem Hcl Discontinued 240 MG PO Every morning November 28, 2021 11:00pm July 24, 2023 5:37pm Comment on above: Take 240 mg by mouth every morning. finasteride 5 mg oral tablet (10 sources) 5-alpha Reductase Inhibitor Start: 05-25-2023 take 1 tablet by mouth every other day finasteride (PROSCAR) 5 mg tablet Take 5 mg by mouth every other day. 0 05/25/2023 Suspended Start: 01-15-2023 take 5 mg by mouth o nce daily in the morning Finasteride Active 5 MG PO Every morning January 14, 2023 11:00pm Comment on above: Take 5 mg by mouth e very other day. hyoscyamine sulfate 0.125 mg sublingual tablet (9 sources) Start: 11-29-2021 End: 01-15-2023 take 0.125 mg under the tongue twice daily Hyoscyamine Sulfate Discontinued 0.125 MG SUBLINGUAL Twice daily November 28, 2021 11:00pm January 15, 2023 7:10am Start: 10-24-2021 take 1 tablet under the tongue at bedtime hyoscyamine (LEVSIN/SL) [address] 1 tablet under the tongue in the morning and at bedtime 60 tablet 6 10/24/2021 Active losartan potassium 100 mg oral tablet (19 sources) Angiotensin 2 Receptor Keshawn Start: 10-23-2021 End: 07-26-2023 take 1 tablet by mouth once daily in the morning losartan (COZAAR) 100 mg tablet Take 100 mg by mouth every morning. 0 07/10/2023 Suspended Comment on above: Take 100 mg by mouth every morning. 24 hr metoprolol succinate 100 mg extended release oral tablet (19 sources) beta-Adrenergic Keshawn Start: 07-10-2023 take 50 mg by mouth once metoprolol succinate ER (TOPROL XL) 100 mg Take 50 mg by mouth one time only. 0 07/10/2023 Suspended Start: 11-29-2021 take 50 mg by mouth once daily in the morning Metoprolol Succinate Active 50 MG PO Every morning November 28, 2021 11:00pm take 0.5 tablet by m outh once daily Metoprolol Succinate ER 100 MG 1/2 TABLET Orally Once a day Active take 1 tablet by seda th once daily Toprol XL 100 MG Oral Tablet Extended Release 24 Hour Take 1 tablet by mouth daily Quantity: 0 Refills: 0 Ordered: 09-Jan-2023 DO Active metoprolol succi jayla (TOPROL XL) 100 MG extended release tablet Take 50 mg by mouth daily 0 Active Comment on above: Take 50 mg by mouth one time only. ondansetron 4 mg oral tablet (2 sources) Serotonin-3 Receptor Antagonist Start: 3 take 1 tablet by mouth every eight hours as needed for nausea ondansetron (ZOFRAN) 4 mg tablet TAKE 1 TABLET BY MOUTH EVERY 8 HOURS NEEDED FOR NAUSEA OR FOR VOMITING FOR UP TO 7 DAYS 0 07/10/2023 Suspended Comment on above: TAKE 1 TABLET BY SEDA TH EVERY 8 HOURS NEEDED FOR NAUSEA OR FOR VOMITING FOR UP TO 7 DAYS pantoprazole 40 mg delayed release oral tablet (5 sources) Proton Pump Inhibitor Start: 3 take 1 tablet by mouth once pantoprazole DR (PROTONIX) 40 mg tablet Take 1 tablet by mouth every afternoon. 0 07/26/2023 Suspended Start: 12-20-2021 take 1 tablet by seda th every twenty-four hours Pantoprazole Sodium 40 MG 1 tablet Orally Once a day for 30 days Nov, Active Comment on above: Take 1 tablet by seda th every afternoon. PEPTAMEN 1.5 0.068 gram- 1.5 kcal/mL (1 source) Start: 3 End: 3 PEPTAMEN 1.5 0.068 gram- 1.5 kcal/mL Tube Feeding Formula Type: Peptamen 1.5 Goal Rate (mL/hr x hours): 60 ml hr x 24 = 1440 ml = 2160 kcal and 98 gm protein Water Flush Volume (mL x frequency: 150 ml q 4 Recommended Enteral Access: PEG with Jejunal Extension 1440 mL 30 08/13/2023 08/14/2023 Discontinued Comment on above: Tube Feeding Formula Type: Peptamen 1.5 Goal Rate (mL/hr x hours): 60 ml hr x 24 = 1440 ml = 2160 kcal and 98 gm protein Water Flush Volume (mL x frequency: 150 ml q 4 Recommended Enteral Access: PEG with Jejunal Extension Potassium (2 sources) potassium (POTAS ELVER ORAL) Take by mouth. 0 Suspended Comment on above: Take by mouth. sucralfate 1000 mg oral tablet (6 sources) Aluminum Complex Start: 2 End: 3 take 1 g by mouth three times daily Sucralfate Discontinued 1 GM PO Three times daily November 28, 2021 11:00pm January 15, 2023 7:10am Start: 11-21-2021 take 1 tablet by seda th every eight hours Sucralfate 1 GM 1 TABLET Orally THREE TIMES A DAY for 30 day(s) Oct, Active tamsulosin hydrochloride 0.4 mg oral capsule (19 sources) alpha-Adrenergic Keshawn Start: 10-23-2021 take 0.4 mg by mouth once tamsulosin (FLOMAX) 0.4 mg Take 0.4 mg by mouth one time only. 0 05/25/2023 Suspended Comment on above: Take 0.4 mg by mouth one time only. technetium sestamibi (CARDIOLITE) injection 10 millicurie (1 source) Start: 11-07-2021 End: 11-07-2021 technetium sestamibi (CARDIOLITE) injection 10 millicurie technetium sestamibi (CARDIOLITE) injection 30 millicurie (1 source) Start: 11-07-2021 End: 11-07-2021 technetium sestamibi (CARDIOLITE) injection 30 millicurie Problems Active Problems Problem Classification Problem Date Documented Da te Episodic/Chronic Abdominal pain (7 sources) Unspecified abdominal pain; Translations: [Epigastric pain] Onset: 2 Resolved: 2 Episodic Acute and unspecified renal failure (6 sources) Acute renal failure syndrome; Translations: [Acute kidney failure, unspecified] Onset: 3 07-24-2023 Episodic Cardiac dysrhythmias (1 source) Tachycardia, unspecified; Translations: [Tachycardia] Onset: 3 Episodic Esophageal disorders (9 sources) Gastroesophageal reflux disease; Translations: [Gastro-esophageal reflux disease without esophagitis] Onset: 2 Resolved: 2 Chronic Essential hypertension (2 sources) Hypertensive disorder; Translations: [Unspecified essential hypertension] Onset: 3 08-08-2023 Chronic Fluid and electrolyte disorders (11 sources) Dehydration; Translations: [Hypokalemia] Onset: 2 Episodic Gastritis and duodenitis (6 sources) Gastritis; Translations: [Gastritis, unspecified, without bleeding] Onset: 2 Resolved: 2 Episodic Hyperplasia of prostate (1 source) Benign prostatic hyperplasia; Translations: [Benign prostatic hyperplasia without lower urinary tract symptoms] 07-25-2023 Chronic Malaise and fatigue (2 sources) Other fatigue; Translations: [Weakness] Onset: 3 Episodic Nonspecific chest pain (2 sources) Chest pain; Translations: [Chest pain, unspecified] Episodic Nutritional deficiencies (2 sources) Deficiency of macronutrients; Translations: [Unspecified severe protein-calorie malnutrition] Onset: 3 08-08-2023 Chronic Open wounds of head; neck; and trunk (1 source) Laceration without foreign body of nose, initial encounter Episodic Other aftercare (1 source) Encounter for removal of sutures Episodic Other aftercare (1 source) Patient encounter status; Translations: [Encounter for therapeutic drug level monitoring] Onset: 3 08-08-2023 Episodic Other circulatory disease (1 source) Bruit; Translations: [Other specified symptoms and signs involving the circulatory and respiratory systems] Episodic Other circulatory disease (2 sources) Low blood pressure; Translations: [Hypotension, unspecified] 07-24-2023 Episodic Other circulatory disease (3 sources) Hypotension, unspecified; Translations: [Hypotension, unspecified] Onset: 3 07-24-2023 Episodic Other disorders of stomach and duodenum (2 sources) Mass of duodenum; Translations: [Other diseases of stomach and duodenum] 07-25-2023 Episodic Other disorders of stomach and duodenum (2 sources) Other diseases of stomach and duodenum; Translations: [Other specified disorders of stomach and duodenum] Onset: 3 07-26-2023 Episodic Other disorders of stomach and duodenum (1 source) Pyloric obstruction; 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] 08-07-2023 Episodic Other disorders of stomach and duodenum (1 source) Adult hypertrophic pyloric stenosis; Translations: [Gastric outlet obstruction] Onset: 4 Episodic Other gastrointestinal disorders (2 sources) Mass of digestive structure; Translations: [Other specified diseases of intestine] 07-24-2023 Episodic Other gastrointestinal disorders (3 sources) Other specified diseases of intestine; Translations: [Other specified disorders of intestine] Onset: 3 07-24-2023 Episodic Other lower respiratory disease (5 sources) Shortness of breath; Translations: [SHORTNESS OF BREATH] Onset: 2 Episodic Other nutritional; endocrine; and metabolic disorders (1 source) Hypomagnesemia; Translations: [Hypomagnesemia] Onset: 3 Chronic Other nutritional; endocrine; and metabolic disorders (1 source) Overweight in adulthood with body mass index of 25 or more but less than 30; Translations: [Overweight] Episodic Other nutritional; endocrine; and metabolic disorders (2 sources) Unintentional weight loss; Translations: [Abnormal weight loss] 07-24-2023 Episodic Other nutritional; endocrine; and metabolic disorders (4 sources) Abnormal weight loss; Translations: [Loss of weight] Onset: 3 07-24-2023 Episodic Other nutritional; endocrine; and metabolic disorders (2 sources) Adult failure to thrive syndrome; Translations: [Adult failure to thrive] Onset: 3 08-07-2023 Episodic Other nutritional; endocrine; and metabolic disorders (2 sources) Feeding problem; Translations: [Feeding difficulties] Onset: 3 08-08-2023 Episodic Other nutritional; endocrine; and metabolic disorders (1 source) Adult failure to thrive; Translations: [Failure to thrive in adult] Onset: 3 Episodic Pneumonia (except that caused by tuberculosis or sexually transmitted disease) (5 sources) Pneumonia, unspecified organism; Translations: [PNEUMONIA UNSPECIFIED ORGANISM] Onset: 2 Episodic Septicemia (except in labor) (2 sources) Sepsis, unspecified organism; Translations: [Severe sepsis without septic shock] Onset: 4 Episodic Syncope (9 sources) Syncope and collapse; Translations: [Syncope] Onset: 2 Episodic Unclassified (1 source) Encounter for preprocedural laboratory examination; Translations: [Encounter for preprocedural laboratory examination] Onset: 3 Viral infection (1 source) COVID-19; Translations: [COVID-19] Onset: 2 Past or Other Problems Problem Classification Problem Date Documented Date Episodic/Chronic Other lower respiratory disease (1 source) Dyspnea on exertion; Translations: [Shortness of breath] Resolved: 02-06-2023 Episodic Other screening for suspected conditions (not mental disorders or infectious disease) (2 sources) Cardiovascular stress test abnormal; Translations: [Other nonspecific abnormal results of function study of cardiovascular system] Onset: 01-17-2023 Episodic Comment on above: mild; Unclassified (1 source) Never smoked tobacco; Translations: [Never a smoker] Results Test Name Value Interpretation Reference Range [facility] Albumin [Mass/Vol] 2.9 g/dL Low 3.9-4.9 [facility] Comment on above: Order Comment: Arben suarez Type: BLOOD SPECIMENOrdering Facility: [facility] Address: [address] [place] [address] Performed By: #### 1 751-7, 13326-7, , 2776-08 ####[facility] LABORATORYCLIA [id number] [place] [id number] [place] Basic metabolic 2000 panelon 09-05-2023 Anion gap [Moles/Vol] 10 mmol/L Normal 9-18 [facility] Comment on above: Order Comment: Arben suarez Type: BLOOD SPECIMENOrdering Facility: [facility] Address: [address] [place] [address] Performed By: #### 1 751-7, 07938-4, , 2776- ####[facility] LABORATORYCLIA [id number] [place] [id number] [place] Calcium [Mass/Vol] 8.2 mg/dL Low 8.5-10.2 [facility] Comment on above: Order Comment: Speci men Type: BLOOD SPECIMENOrdering Facility: [facility] Address: [address] [place] [address] Performed By: #### 1 751-7, 33583-2, , 2776-08 ####[facility]ORYCLIA [id number] [place] [id number] [place] Chloride [Moles/Vol] 107 mmol/L High 97-105 [facility] Comment on above: Order Comment: Speci men Type: BLOOD SPECIMENOrdering Facility: [facility] Address: [address] [place] [address] Performed By: #### 1 751-7, 16559-4, , 2776-08 ####[facility]ATORYCLIA [id number] [place] [address] [place] CO2 [Moles/Vol] 24 mmol/L Normal 22-30 [facility] Comment on above: Order Comment: Speci men Type: BLOOD SPECIMENOrdering Facility: [facility] Address: [address] [place] [address] Performed By: #### 1 751-7, 74976-9, , 2776-08 ####[facility]ATORYCLIA [id number] [place] [id number] [place] Creatinine [Mass/Vol] 0.83 mg/dL Normal 0.73-1.22 [facility] Comment on above: Order Comment: Speci men Type: BLOOD SPECIMENOrdering Facility: [facility] Address: [address] [place] [address] Performed By: #### 1 751-7, 50729-4, , 2776-08 ####[facility]ATORYCLIA [id number] [place] [id number] [place] Creatinine and Glomerular filtration rate.predicted panel (S/P/Bld) 95 mL/min/1.73m??? Normal >=60 [facility] Comment on above: Order Comment: Speci men Type: BLOOD SPECIMENOrdering Facility: [facility] Address: [address] [place] [address] Result Comment: Bailey mated Glomerular Filtration Rate (eGFR) is calculated using the 2020 CKD-EPI creatinine equation. This equation utilizes serum creatinine, sex, and age as parameters. The creatinine assay has traceable calibration to isotope dilution-mass spectrometry. Refer to KDIGO guidelines for clinical interpretation. In patients with unstable renal function, e.g. those with acute kidney injury, the eGFR may not accurately reflect actual GFR. Performed By: #### 1 751-7, 92120-9, 17065-4, 2776-08 ####[facility] LABORATORYCLIA [id number] [place] [id number] [place] Glucose [Mass/Vol] 75 mg/dL Normal 74-99 [facility] Comment on above: Order Comment: Arben suarez Type: BLOOD SPECIMENOrdering Facility: [facility] Address: [address] [place] [address] Result Comment: The [place] [employer] (ADA) provides guidance for cutoff values for fasting glucose and random glucose. The ADA defines fasting as no caloric intake for at least 8 hours. Fasting plasma glucose results between 100 to 125 mg/dL indicate increased risk for diabetes (prediabetes).Fasting plasma glucose results greater than or equal to 126 mg/dL meet the criteria for diagnosis of diabetes. In the absence of unequivocal hyperglycemia, results should be confirmed by repeat testing. In a patient with classic symptoms of hyperglycemia or hyperglycemic crisis, random plasma glucose results greater than or equal to 200 mg/dL meet the criteria for diagnosis of diabetes.Reference: Standards of Medical Care in Diabetes 2016, [place] [employer]. Diabetes Care. 2016.39(Suppl 1). Performed By: #### 1 751-7, 80947-3, , 2776-08 ####[facility] LABORATORYCLIA [id number] [place] [id number] [place] Potassium [Moles/Vol] 4.4 mmol/L Normal 3.7-5.1 [facility] Comment on above: Order Comment: Arben suarez Type: BLOOD SPECIMENOrdering Facility: [facility] Address: [address] [place] [address] Performed By: #### 1 751-7, 38391-3, , 2776- ####[facility] LABORATORYCLIA [id number] [place] [address] [place] Sodium [Moles/Vol] 141 mmol/L Normal 136-144 [facility] Comment on above: Order Comment: Speci men Type: BLOOD SPECIMENOrdering Facility: [facility] Address: [address] [address] Performed By: #### 1 751-7, 30105-6, , 2776-08 ####[facility] LABORATORYCLIA [id number] [place] [id number] [place] Urea nitrogen [Mass/Vol] 25 mg/dL High 9-24 [facility] Comment on above: Order Comment: Speci men Type: BLOOD SPECIMENOrdering Facility: [facility] Address: [address] [place] [address] Performed By: #### 1 751-7, 95613-9, , 2776-08 ####[facility]ATORYCLIA [id number] [place] [id number] [facility] [place] CASE MANAGEMon 09-05-2023 CASE MANAGEM Normal [facility] CASE MANAGEM Normal [facility] CASE MANAGEM Normal [facility] CASE MANAGEM Normal [facility] CNDSon 09-05-2023 CNDS [facility] Magnesium [Mass/Vol] 2.2 mg/dL Normal 1.7-2.3 [facility] Comment on above: Order Comment: Speci men Type: BLOOD SPECIMENOrdering Facility: [facility] Address: [address] [place] [address] Performed By: #### 1 751-7, 93328-9, , 2776-08 ####[facility] LABORATORYCLIA [id number] [place] [address] [place] NUTRITIONon 09-05-2023 NUTRITION Normal [facility] Phosphate SerPl-mCncon 09-05 Phosphate [Mass/Vol] 4.6 mg/dL Normal 2.7-4.8 [facility] Comment on above: Order Comment: Speci men Type: BLOOD SPECIMENOrdering Facility: [facility] Address: [place] [address] Performed By: #### 1 751-7, 35996-6, , 2776- ####[facility]ORATORYCLIA [id number] [place] [address] [place] Albumin SerPl-mCncon 024 Albumin [Mass/Vol] 2.4 g/dL Low 3.9-4.9 [facility] Comment on above: Order Comment: Speci men Type: BLOOD SPECIMENOrdering Facility: [facility] Address: [place] [address] Performed By: #### 1 751-7, 83144-0, , 2776-08 ####[facility]ORATORYCLIA [id number] [place] [id number] [place] Basic metabolic 2000 panelon 09-04-2023 Anion gap [Moles/Vol] 6 mmol/L Low 9-18 [facility] Comment on above: Order Comment: Speci men Type: BLOOD SPECIMENOrdering Facility: [facility] Address: [place] [address] Performed By: #### 1 751-7, 54877-3, , 2776-08 ####[facility]ORATORYCLIA [id number] [place] [id number] [place] Calcium [Mass/Vol] 8.0 mg/dL Low 8.5-10.2 [facility] Comment on above: Order Comment: Speci men Type: BLOOD SPECIMENOrdering Facility: [facility] Address: [place] [address] Performed By: #### 1 751-7, 92816-0, , 2776-08 ####[facility]ORATORYCLIA [id number] [place] [address] [place] Chloride [Moles/Vol] 103 mmol/L Normal 97-105 [facility] Comment on above: Order Comment: Speci men Type: BLOOD SPECIMENOrdering Facility: [facility] Address: [address] [place] [address] Performed By: #### 1 751-7, 53172-2, , 2776-08 ####[facility]ATORYCLIA [id number] [place] [id number] [place] CO2 [Moles/Vol] 30 mmol/L Normal 22-30 [facility] [facility] Comment on above: Order Comment: Speci men Type: BLOOD SPECIMENOrdering Facility: [facility] Address: [address] [place] [address] Performed By: #### 1 751-7, 55457-0, , 2776-08 ####[facility]ORATORYCLIA [id number] [place] [id number] [place] Creatinine [Mass/Vol] 0.80 mg/dL Normal 0.73-1.22 [facility] Comment on above: Order Comment: Speci men Type: BLOOD SPECIMENOrdering Facility: [facility] Address: [address] [place] [address] Performed By: #### 1 751-7, 55267-6, , 2776-08 ####[facility] LABORATORYCLIA [id number] [address] STATES OF [facility] Creatinine and Glomerular filtration rate.predicted panel (S/P/Bld) 96 mL/min/1.73m??? Normal >=60 [facility] Comment on above: Order Comment: Speci men Type: BLOOD SPECIMENOrdering Facility: [facility] Address: [address] [place] [address] Result Comment: Bailey mated Glomerular Filtration Rate (eGFR) is calculated using the 2020 CKD-EPI creatinine equation. This equation utilizes serum creatinine, sex, and age as parameters. The creatinine assay has traceable calibration to isotope dilution-mass spectrometry. Refer to KDIGO guidelines for clinical interpretation. In patients with unstable renal function, e.g. those with acute kidney injury, the eGFR may not accurately reflect actual GFR. Performed By: #### 1 751-7, 93231-4, , 2776-08 ####[facility]ORATORYCLIA [id number] [place] [id number] [place] Glucose [Mass/Vol] 109 mg/dL High 74-99 [facility] Comment on above: Order Comment: Speci men Type: BLOOD SPECIMENOrdering Facility: [facility] Address: [address] [place] [address] Result Comment: The [place] Diabetes Association (ADA) provides guidance for cutoff values for fasting glucose and random glucose. The ADA defines fasting as no caloric intake for at least 8 hours. Fasting plasma glucose results between 100 to 125 mg/dL indicate increased risk for diabetes (prediabetes).Fasting plasma glucose results greater than or equal to 126 mg/dL meet the criteria for diagnosis of diabetes. In the absence of unequivocal hyperglycemia, results should be confirmed by repeat testing. In a patient with classic symptoms of hyperglycemia or hyperglycemic crisis, random plasma glucose results greater than or equal to 200 mg/dL meet the criteria for diagnosis of diabetes.Reference: Standards of Medical Care in Diabetes 2016, [place] [employer] Association. Diabetes Care. 2016.39(Suppl 1). Performed By: #### 1 751-7, 20652-4, , 2776-08 ####[facility] LABORATORYCLIA [id number] [place] [id number] [place] Potassium [Moles/Vol] 4.3 mmol/L Normal 3.7-5.1 [facility] Comment on above: Order Comment: Speci men Type: BLOOD SPECIMENOrdering Facility: [facility] Address: [place] [address] Performed By: #### 1 751-7, 98806-5, , 2776-08 ####[facility] LABORATORYCLIA [id number] [place] [id number] [place] Sodium [Moles/Vol] 139 mmol/L Normal 136-144 [facility] Comment on above: Order Comment: Speci men Type: BLOOD SPECIMENOrdering Facility: [facility] Address: [address] [place] [address] Performed By: #### 1 751-7, 06188-3, 42269-5, 2776- ####[facility]ORATORYCLIA [id number] [place] [id number] [place] Urea nitrogen [Mass/Vol] 21 mg/dL Normal 9-24 [facility] Comment on above: Order Comment: Speci men Type: BLOOD SPECIMENOrdering Facility: [facility] Address: [place] [address] Performed By: #### 1 751-7, 47511-5, , 2776- ####[facility]ORATORYCLIA [id number] [place] [id number] [place] CASE MANAGEMon 09-04-2023 CASE MANAGEM Normal [facility] Magnesium SerPl-ncon 09-04 Magnesium [Mass/Vol] 2.1 mg/dL Normal 1.7-2.3 [facility] Comment on above: Order Comment: Speci men Type: BLOOD SPECIMENOrdering Facility: [facility] Address: [address] [place] [address] Performed By: #### 1 751-7, 68983-1, , 2776-08 ####[facility] LABORATORYCLIA [id number] [place] [id number] [place] NUTRITIONon 09-04-2023 NUTRITION Normal [facility] Phosphate SerPl-mCncon 09-04 Phosphate [Mass/Vol] 3.6 mg/dL Normal 2.7-4.8 [facility] Comment on above: Order Comment: Speci men Type: BLOOD SPECIMENOrdering Facility: [facility] Address: [address] [place] [address] Performed By: #### 1 751-7, 68149-2, , 2776-08 ####[facility]ORATORYCLIA [id number] [place] [address] [place] Albumin SerPl-mCncon 024 Albumin [Mass/Vol] 2.7 g/dL Low 3.9-4.9 [facility] Comment on above: Order Comment: Speci men Type: BLOOD SPECIMENOrdering Facility: [facility] Address: [address] [place] [address] Performed By: #### 1 751-7, 29568-1, , 2776-08 ####[facility] LABORATORYCLIA [id number] [place] [id number] [place] Basic metabolic 2000 panelon 09-03-2023 Anion gap [Moles/Vol] 9 mmol/L Normal 9-18 [facility] Comment on above: Order Comment: Speci men Type: BLOOD SPECIMENOrdering Facility: [facility] Address: [address] [place] [address] Performed By: #### 1 751-7, 59498-7, , 2776-08 ####[facility] LABORATORYCLIA [id number] [place] [id number] [place] Calcium [Mass/Vol] 8.1 mg/dL Low 8.5-10.2 [facility] Comment on above: Order Comment: Speci men Type: BLOOD SPECIMENOrdering Facility: [facility] Address: [address] [place] [address] Performed By: #### 1 751-7, 72224-7, , 2776-08 ####[facility] LABORATORYCLIA [id number] [place] [address] [place] Chloride [Moles/Vol] 97 mmol/L Normal 97-105 [facility] Comment on above: Order Comment: Speci men Type: BLOOD SPECIMENOrdering Facility: [facility] Address: [address] [place] [address] Performed By: #### 1 751-7, 88563-8, , 2776-08 ####[facility] LABORATORYCLIA [id number] [place] [address] [place] CO2 [Moles/Vol] 31 mmol/L High 22-30 [facility] Comment on above: Order Comment: Speci men Type: BLOOD SPECIMENOrdering Facility: [facility] Address: [address] [place] [address] Performed By: #### 1 751-7, 68677-1, , 2776-08 ####[facility]ORATORYCLIA [id number] [place] [address] [place] Creatinine [Mass/Vol] 0.84 mg/dL Normal 0.73-1.22 [facility] Comment on above: Order Comment: Arben suarez Type: BLOOD SPECIMENOrdering Facility: [facility] Address: [address] [place] [address] Performed By: #### 1 751-7, 12936-7, , 2776-08 ####[facility]ORATORYCLIA [id number] [place] [id number] [place] Creatinine and Glomerular filtration rate.predicted panel (S/P/Bld) 95 mL/min/1.73m??? Normal >=60 [facility] Comment on above: Order Comment: [facility] Type: BLOOD SPECIMENOrdering Facility: [facility] Address: [address] [place] [address] Result Comment: Bailey mated Glomerular Filtration Rate (eGFR) is calculated using the 2020 CKD-EPI creatinine equation. This equation utilizes serum creatinine, sex, and age as parameters. The creatinine assay has traceable calibration to isotope dilution-mass spectrometry. Refer to KDIGO guidelines for clinical interpretation. In patients with unstable renal function, e.g. those with acute kidney injury, the eGFR may not accurately reflect actual GFR. Performed By: #### 1 751-7, 97276-3, , 2776-08 ####[facility]ORATORYCLIA [id number] [place] [address] [place] Glucose [Mass/Vol] 91 mg/dL Normal 74-99 [facility] Comment on above: Order Comment: Arben suarez Type: BLOOD SPECIMENOrdering Facility: [facility] Address: [address] [place] [address] Result Comment: The [place] Diabetes Association (ADA) provides guidance for cutoff values for fasting glucose and random glucose. The ADA defines fasting as no caloric intake for at least 8 hours. Fasting plasma glucose results between 100 to 125 mg/dL indicate increased risk for diabetes (prediabetes).Fasting plasma glucose results greater than or equal to 126 mg/dL meet the criteria for diagnosis of diabetes. In the absence of unequivocal hyperglycemia, results should be confirmed by repeat testing. In a patient with classic symptoms of hyperglycemia or hyperglycemic crisis, random plasma glucose results greater than or equal to 200 mg/dL meet the criteria for diagnosis of diabetes.Reference: Standards of Medical Care in Diabetes 2016, [place] [employer]. Diabetes Care. 2016.39(Suppl 1). Performed By: #### 1 751-7, 50933-2, , 2776- ####[facility] LABORATORYCLIA [id number] [place] [address] [place] Potassium [Moles/Vol] 4.1 mmol/L Normal 3.7-5.1 [facility] Comment on above: Order Comment: Arben suarez Type: BLOOD SPECIMENOrdering Facility: [facility] Address: [address] [place] [address] Performed By: #### 1 751-7, 60607-9, , 2776-08 ####[facility]ORATORYCLIA [id number] [place] [address] [place] Sodium [Moles/Vol] 137 mmol/L Normal 136-144 [facility] Comment on above: Order Comment: Arben suarez Type: BLOOD SPECIMENOrdering Facility: [facility] Address: [address] [place] [address] Performed By: #### 1 751-7, 96623-5, , 2776- ####[facility]ORATORYCLIA [id number] [place] [id number] [place] Urea nitrogen [Mass/Vol] 21 mg/dL Normal 9-24 [facility] Comment on above: Order Comment: Arben suarez Type: BLOOD SPECIMENOrdering Facility: [facility] Address: [address] [place] [address] Performed By: #### 1 751-7, 34014-8, , 2776-1 ####[facility] LABORATORYCLIA [id number] [place] [address] [place] CASE MANAGEMon 09-03-2023 CASE MANAGEM Normal [facility] Magnesium [facility] Magnesium [Mass/Vol] 2.0 mg/dL Normal 1.7-2.3 [facility] Comment on above: Order Comment: Speci men Type: BLOOD SPECIMENOrdering Facility: [facility] Address: [address] [facility] [place] [place] [address] Performed By: #### 1 751-7, 24967-6, 79831-2, 7-1 ####[facility] LABORATORYCLIA [id number] [place] [id number] [place] NUTRITIONon 09-03-2023 NUTRITION Normal [facility] Phosphate [facility]03 Phosphate [Mass/Vol] 3.7 mg/dL Normal 2.7-4.8 [facility] Comment on above: Order Comment: Speci men Type: BLOOD SPECIMENOrdering Facility: [facility] Address: [place] [address] Performed By: #### 1 751-7, 08093-7, , 2777-1 ####[facility]ORATORYCLIA [id number] [place] [id number] [place] ALLIED HEALTHon 09-02-2023 ALLIED HEALTH Normal [facility] Albumin [facility] 024 Albumin [Mass/Vol] 2.8 g/dL Low 3.9-4.9 [facility] Comment on above: Order Comment: Speci men Type: BLOOD SPECIMENOrdering Facility: [facility] Address: [address] [place] [address] Performed By: #### 1 751-7, 49901-7, 77523-2, 2571-8 ####[facility]ORATORYCLIA [id number] [place] [id number] [place] Basic metabolic 2000 panelon 09-02-2023 Anion gap [Moles/Vol] 6 mmol/L Low 9-18 [facility] Comment on above: Order Comment: Speci men Type: BLOOD SPECIMENOrdering Facility: [facility] Address: [place] [address] Performed By: #### 1 751-7, 51206-9, 91451-9, 2571-03 ####[facility] LABORATORYCLIA [id number] [place] [address] [place] Calcium [Mass/Vol] 8.3 mg/dL Low 8.5-10.2 [facility] Comment on above: Order Comment: Speci men Type: BLOOD SPECIMENOrdering Facility: [facility] Address: [address] [place] [address] Performed By: #### 1 751-7, 72437-5, , 2571-03 ####[facility]ORATORYCLIA [id number] [place] [id number] [place] Chloride [Moles/Vol] 100 mmol/L Normal 97-105 [facility] Comment on above: Order Comment: Speci men Type: BLOOD SPECIMENOrdering Facility: [facility] Address: [address] [place] [address] Performed By: #### 1 751-7, 58171-1, , 2571-03 ####[facility] LABORATORYCLIA [id number] [place] [id number] [place] CO2 [Moles/Vol] 34 mmol/L High 22-30 [facility] Comment on above: Order Comment: Speci men Type: BLOOD SPECIMENOrdering Facility: [facility] Address: [address] [place] [address] Performed By: #### 1 751-7, 86745-4, , 2571-03 ####[facility] LABORATORYCLIA [id number] [place] [address] [place] Creatinine [Mass/Vol] 0.88 mg/dL Normal 0.73-1.22 [facility] Comment on above: Order Comment: Speci men Type: BLOOD SPECIMENOrdering Facility: [facility] Address: [address] [place] [address] Performed By: #### 1 751-7, 66039-1, , 8 ####[facility] LABORATORYCLIA [id number] [place] [address] [place] Creatinine and Glomerular filtration rate.predicted panel (S/P/Bld) 94 mL/min/1.73m??? Normal >=60 [facility] Comment on above: Order Comment: Arben suarez Type: BLOOD SPECIMENOrdering Facility: [facility] Address: [address] [place] [address] Result Comment: Bailey mated Glomerular Filtration Rate (eGFR) is calculated using the 2020 CKD-EPI creatinine equation. This equation utilizes serum creatinine, sex, and age as parameters. The creatinine assay has traceable calibration to isotope dilution-mass spectrometry. Refer to KDIGO guidelines for clinical interpretation. In patients with unstable renal function, e.g. those with acute kidney injury, the eGFR may not accurately reflect actual GFR. Performed By: #### 1 751-7, 56636-9, , 2571-03 ####[facility] LABORATORYCLIA [id number] [place] [address] [place] Glucose [Mass/Vol] 95 mg/dL Normal 74-99 [facility] Comment on above: Order Comment: Arben daniela Type: BLOOD SPECIMENOrdering Facility: [facility] Address: [address] [place] [address] Result Comment: The [place] Diabetes Association (ADA) provides guidance for cutoff values for fasting glucose and random glucose. The ADA defines fasting as no caloric intake for at least 8 hours. Fasting plasma glucose results between 100 to 125 mg/dL indicate increased risk for diabetes (prediabetes).Fasting plasma glucose results greater than or equal to 126 mg/dL meet the criteria for diagnosis of diabetes. In the absence of unequivocal hyperglycemia, results should be confirmed by repeat testing. In a patient with classic symptoms of hyperglycemia or hyperglycemic crisis, random plasma glucose results greater than or equal to 200 mg/dL meet the criteria for diagnosis of diabetes.Reference: Standards of Medical Care in Diabetes 2016, [place] [employer]. Diabetes Care. 2016.39(Suppl 1). Performed By: #### 1 751-7, 15079-7, , 2571-03 ####[facility] LABORATORYCLIA [id number] [place] [address] [place] Potassium [Moles/Vol] 3.4 mmol/L Low 3.7-5.1 [facility] Comment on above: Order Comment: Speci men Type: BLOOD SPECIMENOrdering Facility: [facility] Address: [place] [address] Performed By: #### 1 751-7, 00229-6, 82555-0, 2571-03 ####[facility] LABORATORYCLIA [id number] [place] [address] [place] Sodium [Moles/Vol] 140 mmol/L Normal 136-144 [facility] Comment on above: Order Comment: Speci men Type: BLOOD SPECIMENOrdering Facility: [facility] Address: [place] [address] Performed By: #### 1 751-7, 94485-6, , 2571-03 ####[facility] LABORATORYCLIA [id number] [place] [address] [place] Urea nitrogen [Mass/Vol] 24 mg/dL Normal 9-24 [facility] Comment on above: Order Comment: Speci men Type: BLOOD SPECIMENOrdering Facility: [facility] Address: [address] [place] [address] Performed By: #### 1 751-7, 09276-2, , 2571-03 ####[facility] LABORATORYCLIA [id number] [place] [address] [place] CBC panel Auto (Bld)on 09-02 Erythrocyte distribution width (RBC) [Ratio] 12.4 % Normal 11.5-15.0 [facility] Comment on above: Order Comment: Speci men Type: BLOOD SPECIMENOrdering Facility: [facility] Address: [address] [place] [address] Performed By: #### 5 8410-2 ####[facility] LABORATORYCLIA [id number] [place] [address] [place] Hematocrit (Bld) [Volume fraction] 29.2 % Low 39.0-51.0 [facility] Comment on above: Order Comment: Speci men Type: BLOOD SPECIMENOrdering Facility: [facility] Address: [address] [place] [address] Performed By: #### 5 8410-2 ####[facility] LABORATORYCLIA [id number] [place] [address] [place] Hemoglobin (Bld) [Mass/Vol] 9.8 g/dL Low 13.0-17.0 [facility] Comment on above: Order Comment: Speci men Type: BLOOD SPECIMENOrdering Facility: [facility] Address: [address] [place] [address] Performed By: #### 5 8410-2 ####[facility] LABORATORYCLIA [id number] [address] MCH (RBC) [Entitic mass] 29.3 pg Normal 26.0-34.0 [facility] Comment on above: Order Comment: Speci men Type: BLOOD SPECIMENOrdering Facility: [facility] Address: [address] [place] [address] Performed By: #### 5 8410-2 ####[facility] LABORATORYCLIA [id number] [address] [place] MCHC (RBC) [Mass/Vol] 33.6 g/dL Normal 30.5-36.0 [facility] Comment on above: Order Comment: Speci men Type: BLOOD SPECIMENOrdering Facility: [facility] Address: [address] [place] [address] Performed By: #### 5 8410-2 ####[facility] LABORATORYCLIA [id number] [address] [place] MCV (RBC) [Entitic vol] 87.4 fL Normal 80.0-100.0 [facility] Comment on above: Order Comment: Speci men Type: BLOOD SPECIMENOrdering Facility: [facility] Address: [address] [place] [address] Performed By: #### 5 8410-2 ####[facility] LABORATORYCLIA [id number] [address] [place] Nucleated RBC (Bld) [#/Vol] 10*3/uL Normal <0.01 [facility] Comment on above: Order Comment: Speci men Type: BLOOD SPECIMENOrdering Facility: [facility] Address: [address] [place] [address] Performed By: #### 5 8410-2 ####[facility] LABORATORYCLIA [id number] [place] [id number] [place] Platelet mean volume (Bld) [Entitic vol] 11.2 fL Normal 9.0-12.7 [facility] Comment on above: Order Comment: Speci men Type: BLOOD SPECIMENOrdering Facility: [facility] Address: [address] [place] [address] Performed By: #### 5 8410-2 ####[facility] LABORATORYCLIA [id number] [place] [address] [place] Platelets (Bld) [#/Vol] 229 10*3/uL Normal 150-400 [facility] Comment on above: Order Comment: Speci men Type: BLOOD SPECIMENOrdering Facility: [facility] Address: [address] [place] [address] Performed By: #### 5 8410-2 ####[facility] LABORATORYCLIA [id number] [place] [address] [place] RBC (Bld) [#/Vol] 3.34 10*6/uL Low 4.20-6.00 [facility] Comment on above: Order Comment: Speci men Type: BLOOD SPECIMENOrdering Facility: [facility] Address: [address] [place] [address] Performed By: #### 5 8410-2 ####[facility] LABORATORYCLIA [id number] [place] [address] [place] WBC (Bld) [#/Vol] 5.51 10*3/uL Normal 3.70-11.00 [facility] Comment on above: Order Comment: Speci men Type: BLOOD SPECIMENOrdering Facility: [facility] Address: [address] [place] [address] Performed By: #### 5 8410-2 ####[facility] LABORATORYCLIA [id number] [address] PANCREAS W IVCONon 2023 CT PANCREAS W IVCON Normal [facility] Magnesium SerPl-ncon 09-02 Magnesium [Mass/Vol] 1.9 mg/dL Normal 1.7-2.3 [facility] Comment on above: Order Comment: Speci men Type: BLOOD SPECIMENOrdering Facility: [facility] Address: [address] [place] [address] Performed By: #### 1 751-7, 08418-7, 91263-0, 2571-03 ####[facility]ORATORYCLIA [id number] [address] NUTRITIONon 09-02-2023 NUTRITION Normal [facility] Phosphate SerPl-mCncon 09-02 Phosphate [Mass/Vol] 2.5 mg/dL Low 2.7-4.8 [facility] Comment on above: Order Comment: Speci men Type: BLOOD SPECIMENOrdering Facility: [facility] Address: [address] [place] [address] Performed By: #### 2 777-1 ####[facility]ORATORYCLIA [id number] [address] [facility] Triglyceride [Mass/Vol] 70 mg/dL Normal <150 [facility] Comment on above: Order Comment: Speci men Type: BLOOD SPECIMENOrdering Facility: [facility] Address: [address] [place] [address] Result Comment: <150 mg/dL, Normal 150-199 mg/dL, Borderline high 200-499 mg/dL, High>499 mg/dL, Very highReference:1. National Cholesterol Education Program ATP III Guideline At-A-Glance Quick Desk Reference: National Heart, Lung, and Blood [place]. National Institutes of Health. 2001: NIH Publication No. 01-3305. Performed By: #### 1 751-7, 59255-4, 45139-1, 2570-8 ####[facility]DARI[facility] LABORATORYCLIA [id number] [place] [id number] [place] Triglyceride [Mass/Vol]on FASTING TIME n/a Normal [facility] Comment on above: Order Comment: Speci men Type: BLOOD SPECIMENOrdering Facility: [facility] Address: [address] [place] [address] Performed By: #### 1 751-7, 25361-6, 98868-2, 2571-8 ####[facility]ORATORYCLIA [id number] [place] [id number] [place] Basic metabolic 2000 panelon 09-01-2023 Anion gap [Moles/Vol] 10 mmol/L Normal 9-18 [facility] Comment on above: Order Comment: Speci men Type: BLOOD SPECIMENOrdering Facility: [facility] Address: [address] [place] [address] Performed By: #### 1 9123-9, 53496-2, 2777-1, 30882-8 ####[facility] LABORATORYCLIA [id number] [place] [address] [place] Calcium [Mass/Vol] 8.4 mg/dL Low 8.5-10.2 [facility] Comment on above: Order Comment: Speci men Type: BLOOD SPECIMENOrdering Facility: [facility] Address: [address] [place] [address] Performed By: #### 1 9123-9, 15425-7, 2777-1, 46320-1 ####[facility]ORATORYCLIA [id number] [place] [id number] [place] Chloride [Moles/Vol] 102 mmol/L Normal 97-105 [facility] Comment on above: Order Comment: Speci men Type: BLOOD SPECIMENOrdering Facility: [facility] Address: [address] [place] [address] Performed By: #### 1 9123-9, 63956-8, 2777-1, 09572-9 ####[facility]ORATORYCLIA [id number] [place] [address] [place] CO2 [Moles/Vol] 29 mmol/L Normal 22-30 [facility] Comment on above: Order Comment: Speci men Type: BLOOD SPECIMENOrdering Facility: [facility] Address: [address] [place] [address] Performed By: #### 1 9123-9, 96169-9, 277-, 30741-3 ####[facility]ORATORYCLIA [id number] [place] [id number] [place] Creatinine [Mass/Vol] 0.93 mg/dL Normal 0.73-1.22 [facility] Comment on above: Order Comment: Speci men Type: BLOOD SPECIMENOrdering Facility: [facility] Address: [address] [place] [address] Performed By: #### 1 9123-9, 92667-7, 2776-, 58826-6 ####[facility] LABORATORYCLIA [id number] [place] [address] [place] Creatinine and Glomerular filtration rate.predicted panel (S/P/Bld) 89 mL/min/1.73m??? Normal >=60 [facility] Comment on above: Order Comment: [facility] Type: BLOOD SPECIMENOrdering Facility: [facility] Address: [address] [place] [address] Result Comment: Bailey mated Glomerular Filtration Rate (eGFR) is calculated using the 2020 CKD-EPI creatinine equation. This equation utilizes serum creatinine, sex, and age as parameters. The creatinine assay has traceable calibration to isotope dilution-mass spectrometry. Refer to KDIGO guidelines for clinical interpretation. In patients with unstable renal function, e.g. those with acute kidney injury, the eGFR may not accurately reflect actual GFR. Performed By: #### 1 9123-9, 18935-1, 277-, 23306-3 ####[facility] LABORATORYCLIA [id number] [place] [id number] [place] Glucose [Mass/Vol] 110 mg/dL High 74-99 [facility] Comment on above: Order Comment: Speci [facility] Type: BLOOD SPECIMENOrdering Facility: [facility] Address: [address] [place] [address] Result Comment: The [place] Diabetes Association (ADA) provides guidance for cutoff values for fasting glucose and random glucose. The ADA defines fasting as no caloric intake for at least 8 hours. Fasting plasma glucose results between 100 to 125 mg/dL indicate increased risk for diabetes (prediabetes).Fasting plasma glucose results greater than or equal to 126 mg/dL meet the criteria for diagnosis of diabetes. In the absence of unequivocal hyperglycemia, results should be confirmed by repeat testing. In a patient with classic symptoms of hyperglycemia or hyperglycemic crisis, random plasma glucose results greater than or equal to 200 mg/dL meet the criteria for diagnosis of diabetes.Reference: Standards of Medical Care in Diabetes 2016, [place] [employer] Association. Diabetes Care. 2016.39(Suppl 1). Performed By: #### 1 9123-9, 60700-1, 2777-1, 51158-6 ####[facility] LABORATORYCLIA [id number] [place] [address] [place] Potassium [Moles/Vol] 3.3 mmol/L Low 3.7-5.1 [facility] Comment on above: Order Comment: Speci men Type: BLOOD SPECIMENOrdering Facility: [facility] Address: [address] [place] [address] Performed By: #### 1 9123-9, 64583-4, 2776-, 18954-9 ####[facility] LABORATORYCLIA [id number] [place] [id number] [place] Sodium [Moles/Vol] 141 mmol/L Normal 136-144 [facility] Comment on above: Order Comment: Speci men Type: BLOOD SPECIMENOrdering Facility: [facility] Address: [address] [place] [address] Performed By: #### 1 9123-9, 49046-6, 2776-1, 73401-6 ####[facility] LABORATORYCLIA [id number] [place] [id number] [place] Urea nitrogen [Mass/Vol] 27 mg/dL High 05-18 [facility] Comment on above: Order Comment: Speci men Type: BLOOD SPECIMENOrdering Facility: [facility] Address: [address] [place] [address] Performed By: #### 1 9123-9, 62524-9, 2776-1, 44768-5 ####[facility]ORATORYCLIA [id number] [place] [id number] [place] CBC W Auto Differential pane l (Bld)on 09-01-2023 Basophils (Bld) [#/Vol] 0.04 10*3/uL Normal <0.11 [facility] Comment on above: Order Comment: Speci men Type: BLOOD SPECIMENOrdering Facility: [facility] Address: [address] [place] [address] Performed By: #### 5 7021-8 ####[facility] LABORATORYCLIA [id number] [place] [id number] [place] Basophils/100 WBC (Bld) 0.8 % Normal [facility] Comment on above: Order Comment: Speci men Type: BLOOD SPECIMENOrdering Facility: [facility] Address: [address] [place] [address] Performed By: #### 5 7021-8 ####[facility] LABORATORYCLIA [id number] [place] [address] [place] Differential cell count method Nom (Bld) Auto Normal [facility] Comment on above: Order Comment: Speci men Type: BLOOD SPECIMENOrdering Facility: [facility] Address: [address] [place] [address] Performed By: #### 5 7021-8 ####[facility] LABORATORYCLIA [id number] [place] [id number] [place] Eosinophils (Bld) [#/Vol] 0.17 10*3/uL Normal <0.46 [facility] Comment on above: Order Comment: Speci men Type: BLOOD SPECIMENOrdering Facility: [facility] Address: [address] [place] [address] Performed By: #### 5 7021-8 ####[facility] LABORATORYCLIA [id number] [address] [place] Eosinophils/100 WBC (Bld) 3.5 % Normal [facility] Comment on above: Order Comment: Speci men Type: BLOOD SPECIMENOrdering Facility: [facility] Address: [address] [place], [place] [address] Performed By: #### 5 7021-8 ####[facility] LABORATORYCLIA [id number] [place] [id number] [place] Erythrocyte distribution width (RBC) [Ratio] 12.5 % Normal 11.5-15.0 [facility] Comment on above: Order Comment: Speci men Type: BLOOD SPECIMENOrdering Facility: [facility] Address: [address] [place] [address] Performed By: #### 5 7021-8 ####[facility] LABORATORYCLIA [id number] [place] [address] [place] Hematocrit (Bld) [Volume fraction] 28.8 % Low 39.0-51.0 [facility] Comment on above: Order Comment: Speci men Type: BLOOD SPECIMENOrdering Facility: [facility] Address: [address] [place] [address] Performed By: #### 5 7021-8 ####[facility] LABORATORYCLIA [id number] [place] [address] [place] Hemoglobin (Bld) [Mass/Vol] 9.9 g/dL Low 13.0-17.0 [facility] Comment on above: Order Comment: Speci men Type: BLOOD SPECIMENOrdering Facility: [facility] Address: [address] [place] [address] Performed By: #### 5 7021-8 ####[facility] LABORATORYCLIA [id number] [place] [id number] [place] Immature granulocytes (Bld) [#/Vol] 10*3/uL Normal <0.10 [facility] Comment on above: Order Comment: Speci men Type: BLOOD SPECIMENOrdering Facility: [facility] Address: [address] [place] [address] Performed By: #### 5 7021-8 ####[facility] LABORATORYCLIA [id number] [place] [id number] [place] Immature granulocytes/100 WBC (Bld) 0.4 % Normal [facility] Comment on above: Order Comment: Speci men Type: BLOOD SPECIMENOrdering Facility: [facility] Address: [address] [place] [address] Performed By: #### 5 7021-8 ####[facility] LABORATORYCLIA [id number] [place] [address] [place] Lymphocytes (Bld) [#/Vol] 1.10 10*3/uL Normal 1.00-4.00 [facility] Comment on above: Order Comment: Speci men Type: BLOOD SPECIMENOrdering Facility: [facility] Address: [address] [place] [address] Performed By: #### 5 7021-8 ####[facility] LABORATORYCLIA [id number] [address] Lymphocytes/100 WBC (Bld) 22.7 % Normal [facility] Comment on above: Order Comment: Speci men Type: BLOOD SPECIMENOrdering Facility: [facility] Address: [address] [place] [address] Performed By: #### 5 7021-8 ####[facility] LABORATORYCLIA [id number] [place] [address] [place] MCH (RBC) [Entitic mass] 29.6 pg Normal 26.0-34.0 [facility] Comment on above: Order Comment: Speci men Type: BLOOD SPECIMENOrdering Facility: [facility] Address: [address] [place] [address] Performed By: #### 5 7021-8 ####[facility] LABORATORYCLIA [id number] [address] [place] MCHC (RBC) [Mass/Vol] 34.4 g/dL Normal 30.5-36.0 [facility] Comment on above: Order Comment: Speci men Type: BLOOD SPECIMENOrdering Facility: [facility] Address: [address] [place] [address] Performed By: #### 5 7021-8 ####[facility] LABORATORYCLIA [id number] [address] [place] MCV (RBC) [Entitic vol] 86.0 fL Normal 80.0-100.0 [facility] Comment on above: Order Comment: Speci men Type: BLOOD SPECIMENOrdering Facility: [facility] Address: [address] [place] [address] Performed By: #### 5 7021-8 ####[facility] LABORATORYCLIA [id number] [place] [id number] [place] Monocytes (Bld) [#/Vol] 0.86 10*3/uL Normal <0.87 [facility] Comment on above: Order Comment: Speci men Type: BLOOD SPECIMENOrdering Facility: [facility] Address: [address] [place] [address] Performed By: #### 5 7021-8 ####[facility] LABORATORYCLIA [id number] [place] [address] [place] Monocytes/100 WBC (Bld) 17.8 % Normal [facility] Comment on above: Order Comment: Speci men Type: BLOOD SPECIMENOrdering Facility: [facility] Address: [address] [place] [address] Performed By: #### 5 7021-8 ####[facility] LABORATORYCLIA [id number] [place] [id number] [place] Neutrophils (Bld) [#/Vol] 2.65 10*3/uL Normal 1.45-7.50 [facility] Comment on above: Order Comment: Speci men Type: BLOOD SPECIMENOrdering Facility: [facility] Address: [address] [place] [address] Performed By: #### 5 7021-8 ####[facility] LABORATORYCLIA [id number] [place] [id number] [place] Neutrophils/100 WBC (Bld) 54.8 % Normal [facility] Comment on above: Order Comment: Speci men Type: BLOOD SPECIMENOrdering Facility: [facility] Address: [address] [place] [address] Performed By: #### 5 7021-8 ####[facility] LABORATORYCLIA [id number] [place] [id number] [place] Nucleated RBC (Bld) [#/Vol] 10*3/uL Normal <0.01 [facility] Comment on above: Order Comment: Speci men Type: BLOOD SPECIMENOrdering Facility: [facility] Address: [address] [place] [address] Performed By: #### 5 7021-8 ####[facility] LABORATORYCLIA [id number] [place] [id number] [place] Nucleated RBC/100 WBC (Bld) [Ratio] 0.0 /100 WBC Normal [facility] Comment on above: Order Comment: Speci men Type: BLOOD SPECIMENOrdering Facility: [facility] Address: [address] [place] [address] Performed By: #### 5 7021-8 ####[facility]ORATORYCLIA [id number] [place] [id number] [place] Platelet mean volume (Bld) [Entitic vol] 11.3 fL Normal 9.0-12.7 [facility] Comment on above: Order Comment: Speci men Type: BLOOD SPECIMENOrdering Facility: [facility] Address: [address] [place] [address] Performed By: #### 5 7021-8 ####[facility]ORATORYCLIA [id number] [place] [address] [place] Platelets (Bld) [#/Vol] 238 10*3/uL Normal 150-400 [facility] Comment on above: Order Comment: Speci men Type: BLOOD SPECIMENOrdering Facility: [facility] Address: [address] [place] [address] Performed By: #### 5 7021-8 ####[facility] LABORATORYCLIA [id number] [place] [id number] [place] RBC (Bld) [#/Vol] 3.35 10*6/uL Low 4.20-6.00 [facility] Comment on above: Order Comment: Speci men Type: BLOOD SPECIMENOrdering Facility: [facility] Address: [address] [place] [address] Performed By: #### 5 7021-8 ####[facility] LABORATORYCLIA [id number] [place] [address] [place] WBC (Bld) [#/Vol] 4.84 10*3/uL Normal 3.70-11.00 [facility] Comment on above: Order Comment: Speci men Type: BLOOD SPECIMENOrdering Facility: [facility] Address: [address] [place] [address] Performed By: #### 5 7021-8 ####[facility]ORATORYCLIA [id number] [place] [id number] [place] Hepatic function 2000 panelo n 09-01-2023 Albumin [Mass/Vol] 2.8 g/dL Low 3.9-4.9 [facility] Comment on above: Order Comment: Speci men Type: BLOOD SPECIMENOrdering Facility: [facility] Address: [address] [place] [address] Performed By: #### 1 9123-9, 92295-4, 2777-1, 91905-3 ####[facility]ORATORYCLIA [id number] [place] [address] [place] ALP [Catalytic activity/Vol] 107 U/L Normal 38-113 [facility] Comment on above: Order Comment: Speci men Type: BLOOD SPECIMENOrdering Facility: [facility] Address: [address] [place] [address] Performed By: #### 1 9123-9, 33142-2, 2777-1, 54965-0 ####[facility]ORATORYCLIA [id number] [place] [id number] [place] ALT [Catalytic activity/Vol] 21 U/L Normal 10-54 [facility] Comment on above: Order Comment: Speci men Type: BLOOD SPECIMENOrdering Facility: [facility] Address: [address] [place] [address] Performed By: #### 1 9123-9, 32251-5, 2777-1, 61545-9 ####[facility] LABORATORYCLIA [id number] [place] [address] [place] AST [Catalytic activity/Vol] 14 U/L Normal 14-40 [facility] Comment on above: Order Comment: Speci men Type: BLOOD SPECIMENOrdering Facility: [facility] Address: [address] [place] [address] Performed By: #### 1 9123-9, 24361-7, 2777-1, 55027-8 ####[facility] LABORATORYCLIA [id number] [place] [id number] [place] Bilirubin [Mass/Vol] 0.4 mg/dL Normal 0.2-1.3 [facility] Comment on above: Order Comment: Speci men Type: BLOOD SPECIMENOrdering Facility: [facility] Address: [address] [place] [address] Performed By: #### 1 9123-9, 87338-1, 277-1, 28160-3 ####[facility] LABORATORYCLIA [id number] [place] [address] [place] Bilirubin.conjugated [Mass/Vol] mg/dL Normal <0.2 [facility] Comment on above: Order Comment: Speci men Type: BLOOD SPECIMENOrdering Facility: [facility] Address: [address] [place] [address] Performed By: #### 1 9123-9, 36099-8, 277-, 14625-3 ####[facility] LABORATORYCLIA [id number] [place] [id number] [place] Protein [Mass/Vol] 5.4 g/dL Low 6.3-8.0 [facility] Comment on above: Order Comment: Speci men Type: BLOOD SPECIMENOrdering Facility: [facility] Address: [address] [place] [address] Performed By: #### 1 9123-9, 27570-0, 277-1, 32400-7 ####[facility] LABORATORYCLIA [id number] [place] [id number] [place] Magnesium SerPl-mCncon 09-01 Magnesium [Mass/Vol] 1.8 mg/dL Normal 1.7-2.3 [facility] Comment on above: Order Comment: Speci men Type: BLOOD SPECIMENOrdering Facility: [facility] Address: [address] [place] [address] Performed By: #### 1 9123-9, 45127-1, 2777-1, 21077-2 ####[facility] LABORATORYCLIA [id number] [place] [address] [place] NURSING PROGon 09-01-2023 NURSING PROG Normal [facility] NUTRITIONon 09-01-2023 NUTRITION Normal [facility] Phosphate SerPl-mCncon 09-01 Phosphate [Mass/Vol] 2.8 mg/dL Normal 2.7-4.8 [facility] Comment on above: Order Comment: Speci men Type: BLOOD SPECIMENOrdering Facility: [facility] Address: [place] [address] Performed By: #### 1 9123-9, 67299-4, 2777-1, 28677-1 ####[facility] LABORATORYCLIA [id number] [place] [address] [place] Albumin SerPl-[facility] 024 Albumin [Mass/Vol] 2.9 g/dL Low 3.9-4.9 [facility] Comment on above: Order Comment: Speci men Type: BLOOD SPECIMENOrdering Facility: [facility] Address: [address] [place] [id number] Performed By: #### 2 777-1, 27914-6, 1751-02, ####[facility] LABORATORYCLIA [id number] [place] [address] [place] Basic metabolic 2000 panelon 08-31-2023 Anion gap [Moles/Vol] 10 mmol/L Normal 9-18 [facility] Comment on above: Order Comment: Speci men Type: BLOOD SPECIMENOrdering Facility: [facility] Address: [address] [place] [address] Performed By: #### 2 777-1, 13546-6, 1751-02, ####[facility] LABORATORYCLIA [id number] [place] [address] [place] Calcium [Mass/Vol] 8.3 mg/dL Low 8.5-10.2 [facility] Comment on above: Order Comment: Speci men Type: BLOOD SPECIMENOrdering Facility: [facility] Address: [address] [place] [address] Performed By: #### 2 777-1, 11134-1, 1751-02, ####[facility] LABORATORYCLIA [id number] [place] [address] [place] Chloride [Moles/Vol] 101 mmol/L Normal 97-105 [facility] Comment on above: Order Comment: Speci men Type: BLOOD SPECIMENOrdering Facility: [facility] Address: [address] [place] [address] Performed By: #### 2 777-1, 16812-4, 1751-02, ####[facility] LABORATORYCLIA [id number] [place] [address] [place] CO2 [Moles/Vol] 23 mmol/L Normal 22-30 [facility] Comment on above: Order Comment: Speci men Type: BLOOD SPECIMENOrdering Facility: [facility] Address: [address] [place] [address] Performed By: #### 2 777-1, 08964-0, 1751-02, ####[facility] LABORATORYCLIA [id number] [place] [address] [place] Creatinine [Mass/Vol] 1.22 mg/dL Normal 0.73-1.22 [facility] Comment on above: Order Comment: Speci men Type: BLOOD SPECIMENOrdering Facility: [facility] Address: [address] [place] [address] Performed By: #### 2 777-1, 45573-0, 1751-02, ####[facility] LABORATORYCLIA [id number] [place] [address] [place] Creatinine and Glomerular filtration rate.predicted panel (S/P/Bld) 65 mL/min/1.73m??? Normal >=60 [facility] Comment on above: Order Comment: Speci men Type: BLOOD SPECIMENOrdering Facility: [facility] Address: [address] [place] [address] Result Comment: Bailey mated Glomerular Filtration Rate (eGFR) is calculated using the 2020 CKD-EPI creatinine equation. This equation utilizes serum creatinine, sex, and age as parameters. The creatinine assay has traceable calibration to isotope dilution-mass spectrometry. Refer to KDIGO guidelines for clinical interpretation. In patients with unstable renal function, e.g. those with acute kidney injury, the eGFR may not accurately reflect actual GFR. Performed By: #### 2 777-1, 46067-0, 1751-02, ####[facility] LABORATORYCLIA [id number] [place] [address] [place] Glucose [Mass/Vol] 100 mg/dL High 74-99 [facility] Comment on above: Order Comment: Arben suarez Type: BLOOD SPECIMENOrdering Facility: [facility] Address: [address] [place] [address] Result Comment: The [place] Diabetes [employer] (ADA) provides guidance for cutoff values for fasting glucose and random glucose. The ADA defines fasting as no caloric intake for at least 8 hours. Fasting plasma glucose results between 100 to 125 mg/dL indicate increased risk for diabetes (prediabetes).Fasting plasma glucose results greater than or equal to 126 mg/dL meet the criteria for diagnosis of diabetes. In the absence of unequivocal hyperglycemia, results should be confirmed by repeat testing. In a patient with classic symptoms of hyperglycemia or hyperglycemic crisis, random plasma glucose results greater than or equal to 200 mg/dL meet the criteria for diagnosis of diabetes.Reference: Standards of Medical Care in Diabetes 2016, [place] [employer]. Diabetes Care. 2016.39(Suppl 1). Performed By: #### 2 777-1, 23105-1, 1751-02, ####[facility] LABORATORYIA [id number] [place] [address] [place] Potassium [Moles/Vol] 3.5 mmol/L Low 3.7-5.1 [facility] Comment on above: Order Comment: Arben suarez Type: BLOOD SPECIMENOrdering Facility: [facility] Address: [address] [place] [address] Performed By: #### 2 777-1, 67566-4, 1751-02, ####[facility] LABORATORYCLIA [id number] [place] [address] [place] Sodium [Moles/Vol] 134 mmol/L Low 136-144 [facility] Comment on above: Order Comment: Speci men Type: BLOOD SPECIMENOrdering Facility: [facility] Address: [address] [place], [place] [address] Performed By: #### 2 777-1, 55261-1, 1751-02, ####[facility] LABORATORYCLIA [id number] [place] [address] [place] Urea nitrogen [Mass/Vol] 39 mg/dL High 9-24 [facility] Comment on above: Order Comment: Speci men Type: BLOOD SPECIMENOrdering Facility: [facility] Address: [address] [place], [place] [address] Performed By: #### 2 777-1, 63671-6, 1751-02, ####[facility] LABORATORYCLIA [id number] [place] [address] [place] CASE MANAGEMon 08-31-2023 CASE MANAGEM Normal [facility] Magnesium SerPl-mCncon 08-31 Magnesium [Mass/Vol] 1.7 mg/dL Normal 1.7-2.3 [facility] Comment on above: Order Comment: Speci men Type: BLOOD SPECIMENOrdering Facility: [facility] Address: [address] [place] [address] Performed By: #### 2 777-1, 07945-4, 1751-02, ####[facility] LABORATORYCLIA [id number] [place] [address] [place] Phosphate SerPl-mCncon 08-31 Phosphate [Mass/Vol] 2.6 mg/dL Low 2.7-4.8 [facility] Comment on above: Order Comment: Speci men Type: BLOOD SPECIMENOrdering Facility: [facility] Address: [address] [place], [place] [address] Performed By: #### 2 777-1, 86016-4, 1751-02, ####[facility] LABORATORYCLIA [id number] [place] [address] [place] Albumin SerPl-mCncon 024 Albumin [Mass/Vol] 3.1 g/dL Low 3.9-4.9 [facility] Comment on above: Order Comment: Speci men Type: BLOOD SPECIMENOrdering Facility: [facility] Address: [place] [address] Performed By: #### 2 1-2, , 1751-02, 2776-08 ####[facility] LABORATORYCLIA [id number] [place] [id number] [place] Basic metabolic 2000 panelon 08-30-2023 Anion gap [Moles/Vol] 11 mmol/L Normal 9-18 [facility] Comment on above: Order Comment: Speci men Type: BLOOD SPECIMENOrdering Facility: [facility] Address: [place] [address] Performed By: #### 2 2, , 1751-02, 2776-08 ####[facility] LABORATORYCLIA [id number] [place] [address] [place] Calcium [Mass/Vol] 8.1 mg/dL Low 8.5-10.2 [facility] Comment on above: Order Comment: Speci men Type: BLOOD SPECIMENOrdering Facility: [facility] Address: [place] [address] Performed By: #### 2 4320-2, , 1751-02, 2776-08 ####[facility] LABORATORYCLIA [id number] [place] [address] [place] Chloride [Moles/Vol] 106 mmol/L High 97-105 [facility] Comment on above: Order Comment: Speci men Type: BLOOD SPECIMENOrdering Facility: [facility] Address: [place] [address] Performed By: #### 2 4321-2, , 1751-02, 2776-08 ####[facility] LABORATORYCLIA [id number] [place] [id number] [place] CO2 [Moles/Vol] 17 mmol/L Low 22-30 [facility] Comment on above: Order Comment: Speci men Type: BLOOD SPECIMENOrdering Facility: [facility] Address: [address] [place] [address] Performed By: #### 2 4321-2, 88560-9, 1751-02, 2776-08 ####[facility] LABORATORYCLIA [id number] [place] [id number] [place] Creatinine [Mass/Vol] 1.39 mg/dL High 0.73-1.22 [facility] Comment on above: Order Comment: Speci men Type: BLOOD SPECIMENOrdering Facility: [facility] Address: [address] [place] [address] Performed By: #### 2 4321-2, , 1751-02, 2776-08 ####[facility] LABORATORYCLIA [id number] [place] [address] [place] Creatinine and Glomerular filtration rate.predicted panel (S/P/Bld) 55 mL/min/1.73m??? Low >=60 [facility] Comment on above: Order Comment: Speci men Type: BLOOD SPECIMENOrdering Facility: [facility] Address: [address] [place] [address] Result Comment: Bailey mated Glomerular Filtration Rate (eGFR) is calculated using the 2020 CKD-EPI creatinine equation. This equation utilizes serum creatinine, sex, and age as parameters. The creatinine assay has traceable calibration to isotope dilution-mass spectrometry. Refer to KDIGO guidelines for clinical interpretation. In patients with unstable renal function, e.g. those with acute kidney injury, the eGFR may not accurately reflect actual GFR. Performed By: #### 2 4321-2, 63100-5, 1751-02, 2776-08 ####[facility] LABORATORYCLIA [id number] [place] [id number] [place] Glucose [Mass/Vol] 107 mg/dL High 74-99 [facility] Comment on above: Order Comment: Speci men Type: BLOOD SPECIMENOrdering Facility: [facility] Address: [address] [place] [id number] Result Comment: The [place] Diabetes [employer] (ADA) provides guidance for cutoff values for fasting glucose and random glucose. The ADA defines fasting as no caloric intake for at least 8 hours. Fasting plasma glucose results between 100 to 125 mg/dL indicate increased risk for diabetes (prediabetes).Fasting plasma glucose results greater than or equal to 126 mg/dL meet the criteria for diagnosis of diabetes. In the absence of unequivocal hyperglycemia, results should be confirmed by repeat testing. In a patient with classic symptoms of hyperglycemia or hyperglycemic crisis, random plasma glucose results greater than or equal to 200 mg/dL meet the criteria for diagnosis of diabetes.Reference: Standards of Medical Care in Diabetes 2016, [place] [employer]. Diabetes Care. 2016.39(Suppl 1). Performed By: #### 2 4321-2, , 1751-02, 2776-08 ####[facility] LABORATORYCLIA [id number] [place] [id number] [place] Potassium [Moles/Vol] 3.6 mmol/L Low 3.7-5.1 [facility] Comment on above: Order Comment: Demarcusi daniela Type: BLOOD SPECIMENOrdering Facility: [facility] Address: [address] [place] [id number] Performed By: #### 2 4321-2, , 1751-02, 2776-08 ####[facility] LABORATORYCLIA [id number] [place] [id number] [place] Sodium [Moles/Vol] 134 mmol/L Low 136-144 [facility] Comment on above: Order Comment: Demarcusi men Type: BLOOD SPECIMENOrdering Facility: [facility] Address: [address] [place] [address] Performed By: #### 2 4321-2, , 1751-02, 2776-08 ####[facility] LABORATORYCLIA [id number] [place] [address] [place] Urea nitrogen [Mass/Vol] 46 mg/dL High 9-24 [facility] Comment on above: Order Comment: Speci men Type: BLOOD SPECIMENOrdering Facility: [facility] Address: [address] [place] [address] Performed By: #### 2 4321-2, 55031-8, 1751-7, 2777-1 ####[facility]ORATORYCLIA [id number] [place] [address] [place] CBC panel Auto (Bld)on 08-30 Erythrocyte distribution width (RBC) [Ratio] 12.4 % Normal 11.5-15.0 [facility] Comment on above: Order Comment: Speci men Type: BLOOD SPECIMENOrdering Facility: [facility] Address: [address] [place] [address] Performed By: #### 5 8410-2 ####[facility]ORATORYCLIA [id number] [address] [place] Hematocrit (Bld) [Volume fraction] 32.1 % Low 39.0-51.0 [facility] Comment on above: Order Comment: Speci men Type: BLOOD SPECIMENOrdering Facility: [facility] Address: [address] [place] [address] Performed By: #### 5 8410-2 ####[facility]ORATORYCLIA [id number] [place] [address] [place] Hemoglobin (Bld) [Mass/Vol] 11.0 g/dL Low 13.0-17.0 [facility] Comment on above: Order Comment: Speci men Type: BLOOD SPECIMENOrdering Facility: [facility] Address: [address] [place] [address] Performed By: #### 5 8410-2 ####[facility]ORATORYCLIA [id number] [place] [id number] [place] MCH (RBC) [Entitic mass] 29.3 pg Normal 26.0-34.0 [facility] Comment on above: Order Comment: Speci men Type: BLOOD SPECIMENOrdering Facility: [facility] Address: [address] [place] [address] Performed By: #### 5 8410-2 ####[facility]ORATORYCLIA [id number] [place] [address] [place] MCHC (RBC) [Mass/Vol] 34.3 g/dL Normal 30.5-36.0 [facility] Comment on above: Order Comment: Speci men Type: BLOOD SPECIMENOrdering Facility: [facility] Address: [address] [place] [address] Performed By: #### 5 8410-2 ####[facility] LABORATORYCLIA [id number] [place] [id number] [place] MCV (RBC) [Entitic vol] 85.6 fL Normal 80.0-100.0 [facility] Comment on above: Order Comment: Speci men Type: BLOOD SPECIMENOrdering Facility: [facility] Address: [address] [place] [address] Performed By: #### 5 8410-2 ####[facility] LABORATORYCLIA [id number] [place] [address] [place] Nucleated RBC (Bld) [#/Vol] 10*3/uL Normal <0.01 [facility] Comment on above: Order Comment: Speci men Type: BLOOD SPECIMENOrdering Facility: [facility] Address: [address] [place] [address] Performed By: #### 5 8410-2 ####[facility] LABORATORYCLIA [id number] [place] [address] [place] Platelet mean volume (Bld) [Entitic vol] 10.6 fL Normal 9.0-12.7 [facility] Comment on above: Order Comment: Speci men Type: BLOOD SPECIMENOrdering Facility: [facility] Address: [address] [place] [address] Performed By: #### 5 8410-2 ####[facility] LABORATORYCLIA [id number] [place] [address] [place] Platelets (Bld) [#/Vol] 306 10*3/uL Normal 150-400 [facility] Comment on above: Order Comment: Speci men Type: BLOOD SPECIMENOrdering Facility: [facility] Address: [address] [place] [address] Performed By: #### 5 8410-2 ####[facility] LABORATORYCLIA [id number] [place] [address] [place] RBC (Bld) [#/Vol] 3.75 10*6/uL Low 4.20-6.00 [facility] Comment on above: Order Comment: Speci men Type: BLOOD SPECIMENOrdering Facility: [facility] Address: [address] [place] [address] Performed By: #### 5 8410-2 ####[facility] LABORATORYCLIA [id number] [place] [address] [place] WBC (Bld) [#/Vol] 6.84 10*3/uL Normal 3.70-11.00 [facility] Comment on above: Order Comment: Speci men Type: BLOOD SPECIMENOrdering Facility: [facility] Address: [address] [place] [address] Performed By: #### 5 8410-2 ####[facility] LABORATORYCLIA [id number] [place] [id number] [place] CONSULT PROGon 08-30-2023 CONSULT PROG Normal [facility] Lactate (Bld) [Moles/Vol]on 08-30-2023 Lactate [Moles/Vol] 0.6 mmol/L Normal 0.5-2.2 [facility] Comment on above: Order Comment: Speci men Type: BLOOD SPECIMENOrdering Facility: [facility] Address: [address] [place] [address] Performed By: #### 3 2693-4 ####[facility] LABORATORYCLIA [id number] [place] [id number] [place] Magnesium SerPl-mCncon 08-30 Magnesium [Mass/Vol] 2.0 mg/dL Normal 1.7-2.3 [facility] Comment on above: Order Comment: Speci men Type: BLOOD SPECIMENOrdering Facility: [facility] Address: [address] [place] [address] Performed By: #### 2 4321-2, 74156-2, 1751-7, 2777-1 ####[facility] LABORATORYCLIA [id number] [place] [address] [place] NURSING PROGon 08-30-2023 NURSING PROG Normal [facility] NUTRITIONon 08-30-2023 NUTRITION Normal [facility] Phosphate SerPl-mCncon 08-30 Phosphate [Mass/Vol] 3.1 mg/dL Normal 2.7-4.8 [facility] Comment on above: Order Comment: Speci men Type: BLOOD SPECIMENOrdering Facility: [facility] Address: [address] [place] [address] Performed By: #### 2 4321-2, 19544-4, 1751-7, 2777-1 ####[facility] LABORATORYCLIA [id number] [place] [address] [place] Basic metabolic 2000 panelon 08-29-2023 Anion gap [Moles/Vol] 18 mmol/L Normal 9-18 [facility] Comment on above: Order Comment: Speci men Type: BLOOD SPECIMENOrdering Facility: [facility] Address: [address] [place] [address] Performed By: #### 2 4321-2, 2777-1, 69836-7, 54505-9 ####[facility] LABORATORYCLIA [id number] [place] [address] [place] Calcium [Mass/Vol] 9.0 mg/dL Normal 8.5-10.2 [facility] Comment on above: Order Comment: Speci men Type: BLOOD SPECIMENOrdering Facility: [facility] Address: [address] [place] [address] Performed By: #### 2 4321-2, 2777-1, 18028-0, 19290-1 ####[facility] LABORATORYCLIA [id number] [place] [address] [place] Chloride [Moles/Vol] 107 mmol/L High 97-105 [facility] Comment on above: Order Comment: Speci men Type: BLOOD SPECIMENOrdering Facility: [facility] Address: [address] [place] [address] Performed By: #### 2 4321-2, 2777-1, 48628-3, ####[facility]ATORYCLIA [id number] [place] [address] [place] CO2 [Moles/Vol] 8 mmol/L Low 22-30 [facility] Comment on above: Order Comment: Speci men Type: BLOOD SPECIMENOrdering Facility: [facility] Address: [address] [place] [address] Performed By: #### 2 4321-2, 2777-1, 47455-8, ####[facility]ATORYCLIA [id number] [place] [address] [place] Creatinine [Mass/Vol] 1.98 mg/dL High 0.73-1.22 [facility] Comment on above: Order Comment: Speci men Type: BLOOD SPECIMENOrdering Facility: [facility] Address: [address] [place] [address] Performed By: #### 2 4321-2, 2777-1, 98956-7, ####[facility]ATORYCLIA [id number] [place] [id number] [place] Creatinine and Glomerular filtration rate.predicted panel (S/P/Bld) 36 mL/min/1.73m??? Low >=60 [facility] Comment on above: Order Comment: Speci men Type: BLOOD SPECIMENOrdering Facility: [facility] Address: [address] [place] [address] Result Comment: Bailey mated Glomerular Filtration Rate (eGFR) is calculated using the 2020 CKD-EPI creatinine equation. This equation utilizes serum creatinine, sex, and age as parameters. The creatinine assay has traceable calibration to isotope dilution-mass spectrometry. Refer to KDIGO guidelines for clinical interpretation. In patients with unstable renal function, e.g. those with acute kidney injury, the eGFR may not accurately reflect actual GFR. Performed By: #### 2 4321-2, 2777-1, 22839-9, 03321-0 ####[facility]ATORYCLIA [id number] [place] [address] [place] Glucose [Mass/Vol] 134 mg/dL High 74-99 [facility] Comment on above: Order Comment: Arben daniela Type: BLOOD SPECIMENOrdering Facility: [facility] Address: [place] [address] Result Comment: The [place] [employer] (ADA) provides guidance for cutoff values for fasting glucose and random glucose. The ADA defines fasting as no caloric intake for at least 8 hours. Fasting plasma glucose results between 100 to 125 mg/dL indicate increased risk for diabetes (prediabetes).Fasting plasma glucose results greater than or equal to 126 mg/dL meet the criteria for diagnosis of diabetes. In the absence of unequivocal hyperglycemia, results should be confirmed by repeat testing. In a patient with classic symptoms of hyperglycemia or hyperglycemic crisis, random plasma glucose results greater than or equal to 200 mg/dL meet the criteria for diagnosis of diabetes.Reference: Standards of Medical Care in Diabetes 2016, [place] [employer]. Diabetes Care. 2016.39(Suppl 1). Performed By: #### 2 4321-2, 2777-1, 15650-9, ####[facility]ATORYCLIA [id number] [place] [address] [place] Potassium [Moles/Vol] 4.9 mmol/L Normal 3.7-5.1 [facility] Comment on above: Order Comment: Arben daniela Type: BLOOD SPECIMENOrdering Facility: [facility] Address: [place] [address] Performed By: #### 2 4321-2, 2777-1, 19931-5, ####[facility]ATORYCLIA [id number] [place] [address] [place] Sodium [Moles/Vol] 133 mmol/L Low 136-144 [facility] Comment on above: Order Comment: Arben daniela Type: BLOOD SPECIMENOrdering Facility: [facility] Address: [place] [address] Performed By: #### 2 4321-2, 2777-1, 32533-0, ####[facility]ATORYCLIA [id number] [place] [id number] [place] Urea nitrogen [Mass/Vol] 68 mg/dL High 9-24 [facility] Comment on above: Order Comment: Speci men Type: BLOOD SPECIMENOrdering Facility: [facility] Address: [address] [place] [address] Performed By: #### 2 4321-2, 2777-1, 55350-8, 80787-9 ####[facility]ORATORYCLIA [id number] [place] [id number] [place] CBC panel Auto (Bld)on 08-29 Erythrocyte distribution width (RBC) [Ratio] 12.2 % Normal 11.5-15.0 [facility] Comment on above: Order Comment: Speci men Type: BLOOD SPECIMENOrdering Facility: [facility] Address: [address] [place] [address] Performed By: #### 5 8410-2 ####[facility]ORATORYCLIA [id number] [place] [address] [place] Hematocrit (Bld) [Volume fraction] 37.9 % Low 39.0-51.0 [facility] Comment on above: Order Comment: Speci men Type: BLOOD SPECIMENOrdering Facility: [facility] Address: [address] [place] [address] Performed By: #### 5 8410-2 ####[facility]ORATORYCLIA [id number] [place] [address] [place] Hemoglobin (Bld) [Mass/Vol] 12.9 g/dL Low 13.0-17.0 [facility] Comment on above: Order Comment: Speci men Type: BLOOD SPECIMENOrdering Facility: [facility] Address: [address] [place] [address] Performed By: #### 5 8410-2 ####[facility]ORATORYCLIA [id number] [place] [address] [place] MCH (RBC) [Entitic mass] 29.7 pg Normal 26.0-34.0 [facility] Comment on above: Order Comment: Speci men Type: BLOOD SPECIMENOrdering Facility: [facility] Address: [address] [place] [address] Performed By: #### 5 8410-2 ####[facility]ORATORYCLIA [id number] [place] [id number] [place] MCHC (RBC) [Mass/Vol] 34.0 g/dL Normal 30.5-36.0 [facility] Comment on above: Order Comment: Speci men Type: BLOOD SPECIMENOrdering Facility: [facility] Address: [address] [place] [address] Performed By: #### 5 8410-2 ####[facility]ORATORYCLIA [id number] [place] [id number] [place] MCV (RBC) [Entitic vol] 87.3 fL Normal 80.0-100.0 [facility] Comment on above: Order Comment: Speci men Type: BLOOD SPECIMENOrdering Facility: [facility] Address: [address] [place] [address] Performed By: #### 5 8410-2 ####[facility]ORATORYCLIA [id number] [place] [address] [place] Nucleated RBC (Bld) [#/Vol] 10*3/uL Normal <0.01 [facility] Comment on above: Order Comment: Speci men Type: BLOOD SPECIMENOrdering Facility: [facility] Address: [address] [place] [address] Performed By: #### 5 8410-2 ####[facility]ORATORYCLIA [id number] [place] [address] [place] Platelet mean volume (Bld) [Entitic vol] 10.5 fL Normal 9.0-12.7 [facility] Comment on above: Order Comment: Speci men Type: BLOOD SPECIMENOrdering Facility: [facility] Address: [address] [place] [address] Performed By: #### 5 8410-2 ####[facility] LABORATORYCLIA [id number] [address] [place] Platelets (Bld) [#/Vol] 356 10*3/uL Normal 150-400 [facility] Comment on above: Order Comment: Speci men Type: BLOOD SPECIMENOrdering Facility: [facility] Address: [address] [place] [address] Performed By: #### 5 8410-2 ####[facility]ORATORYCLIA [id number] [place] [id number] [place] RBC (Bld) [#/Vol] 4.34 10*6/uL Normal 4.20-6.00 [facility] Comment on above: Order Comment: Speci men Type: BLOOD SPECIMENOrdering Facility: [facility] Address: [address] [place] [address] Performed By: #### 5 8410-2 ####[facility] LABORATORYCLIA [id number] [place] [id number] [place] WBC (Bld) [#/Vol] 6.11 10*3/uL Normal 3.70-11.00 [facility] Comment on above: Order Comment: Speci men Type: BLOOD SPECIMENOrdering Facility: [facility] Address: [address] [place] [address] Performed By: #### 5 8410-2 ####[facility] LABORATORYCLIA [id number] [place] [address] [place] HIGH SENSITIVITY TROPONIN T (THIRD) 3 HRS AFTER INITIALon 08-29-2023 Troponin T.cardiac High sensitivity method [Mass/Vol] 32 ng/L High <12 [facility] Comment on above: Order Comment: Speci men Type: BLOOD SPECIMENOrdering Facility: [facility] Address: [address] [place] [address] Result Comment: When assessing risk for acute coronary syndromes: In patients undergoing blood draw greater than or equal to 2 hours from symptom onset, with history of very low to moderate risk and non-ischemic ECG, an initial hs-Troponin T less than 12 ng/L AND a 1 hour delta hs-Troponin T less than 3 ng/L should be considered very low risk for 30 day MACE. Performed By: #### L [id number] ####[facility] LABORATORYCLIA [id number] [place] [id number] [place] Iron and Iron binding capaci ty panelon 08-29-2023 Iron [Mass/Vol] 170 ug/dL Normal 41-186 [facility] Comment on above: Order Comment: Speci men Type: BLOOD SPECIMENOrdering Facility: [facility] Address: [address] [place] [address] Performed By: #### 2 4321-2, 2777-1, 78566-6, 24872-6 ####[facility]ATORYCLIA [id number] [place] [id number] [place] Iron binding capacity [Mass/Vol] 331 ug/dL Normal 232-386 [facility] Comment on above: Order Comment: Speci men Type: BLOOD SPECIMENOrdering Facility: [facility] Address: [address] [place] [address] Performed By: #### 2 4321-2, 2777-1, 66569-0, ####[facility]ATORYCLIA [id number] [place] [address] [place] Iron/TIBC [Molar ratio] 51.4 % Normal 20.0-55.0 [facility] Comment on above: Order Comment: Speci men Type: BLOOD SPECIMENOrdering Facility: [facility] Address: [address] [place] [address] Performed By: #### 2 4321-2, 2777-1, 27758-5, 48478-3 ####[facility]ATORYCLIA [id number] [place] [address] [place] Lactate (Bld) [Moles/Vol]on 08-29-2023 Lactate [Moles/Vol] 1.1 mmol/L Normal 0.5-2.2 [facility] Comment on above: Order Comment: Speci men Type: BLOOD SPECIMENOrdering Facility: [facility] Address: [address] [place] [address] Performed By: #### 3 2693-4 ####[facility]ATORYCLIA [id number] [place] [address] [place] Magnesium SerPl-mCncon 08-29 Magnesium [Mass/Vol] 2.6 mg/dL High 1.7-2.3 [facility] Comment on above: Order Comment: Speci men Type: BLOOD SPECIMENOrdering Facility: [facility] Address: [address] [place] [address] Performed By: #### 2 4321-2, 2777-1, 08201-8, 64186-0 ####[facility]ORATORYCLIA [id number] [place] [address] [place] NURSING PROGon 08-29-2023 NURSING PROG Normal [facility] NUTRITIONon 08-29-2023 NUTRITION Normal [facility] NUTRITION Normal [facility] PT EDon 08-29-2023 PT ED Normal [facility] Phosphate SerPl-mCncon 08-29 Phosphate [Mass/Vol] 4.7 mg/dL Normal 2.7-4.8 [facility] Comment on above: Order Comment: Speci men Type: BLOOD SPECIMENOrdering Facility: [facility] Address: [place] [address] Performed By: #### 2 4321-2, 2777-1, 68054-2, 63009-9 ####[facility]ORATORYCLIA [id number] [place] [id number] [place] Prealb SerPl-mCncon 08-29-19 24 Prealbumin [Mass/Vol] 26 mg/dL Normal 17-36 [facility] Comment on above: Order Comment: Speci men Type: BLOOD SPECIMENOrdering Facility: [facility] Address: [place] [address] Performed By: #### 1 4338-8, 3034-6 ####[facility] LABCLIA [id number] [address] [address] [place] Transferrin SerPl-mCncon Transferrin [Mass/Vol] 271 mg/dL Normal 200-360 [facility] Comment on above: Order Comment: Speci men Type: BLOOD SPECIMENOrdering Facility: [facility] Address: [place] [address] Performed By: #### 1 4338-8, 3034-6 ####[facility] LABCLIA [id number] [place] AVENUEDESK [id number] Urinalysis complete panel (U )on 08-29-2023 Bacteria LM.HPF (Urine sed) [#/Area] Rare Abnormal None Seen [facility] Comment on above: Order Comment: Speci men Type: URINE SPECIMENOrdering Facility: [facility] Address: [address] [place] [address] Performed By: #### 2 4356-8 ####[facility]ATORYCLIA [id number] [place] [address] [place] Bilirubin Ql (U) Negative Normal Negative [facility] Comment on above: Order Comment: Speci men Type: URINE SPECIMENOrdering Facility: [facility] Address: [address] [place] [address] Performed By: #### 2 4356-8 ####[facility]ATORYCLIA [id number] [address] Clarity (Unsp spec) Clear Normal Clear [facility] Comment on above: Order Comment: Speci men Type: URINE SPECIMENOrdering Facility: [facility] Address: [address] [place] [address] Performed By: #### 2 4356-8 ####[facility]ATORYCLIA [id number] [place] [address] [place] Color (U) Light Yellow Normal Yellow [facility] Comment on above: Order Comment: Speci men Type: URINE SPECIMENOrdering Facility: [facility] Address: [address] [place] [address] Performed By: #### 2 4356-8 ####[facility]ATORYCLIA [id number] [address] [place] Glucose Test strip (U) [Mass/Vol] Negative Normal Trace, Negative [facility] Comment on above: Order Comment: Speci men Type: URINE SPECIMENOrdering Facility: [facility] Address: [address] [place] [address] Performed By: #### 2 4356-8 ####[facility]ATORYCLIA [id number] [place] [address] [place] Hemoglobin Ql (U) Negative Normal Negative, Trace [facility] Comment on above: Order Comment: Speci men Type: URINE SPECIMENOrdering Facility: [facility] Address: [address] [place] [address] Performed By: #### 2 4356-8 ####[facility]ATORYCLIA [id number] [place] [address] [place] Ketones Ql (U) Negative Normal Negative, Trace [facility] Comment on above: Order Comment: Speci men Type: URINE SPECIMENOrdering Facility: [facility] Address: [address] [place] [address] Performed By: #### 2 4356-8 ####[facility] LABORATORYCLIA [id number] [address] [place] Leukocyte esterase Test strip Ql (U) Negative Normal Negative, 25 Angle/uL [facility] Comment on above: Order Comment: Speci men Type: URINE SPECIMENOrdering Facility: [facility] Address: [address] [place] [address] Performed By: #### 2 4356-8 ####[facility] LABORATORYCLIA [id number] [place] [address] [place] Nitrite Ql (U) Negative Normal Negative [facility] Comment on above: Order Comment: Speci men Type: URINE SPECIMENOrdering Facility: [facility] Address: [address] [place] [address] Performed By: #### 2 4356-8 ####[facility]ATORYCLIA [id number] [place] [address] [place] pH (U) 5.0 [pH] Normal 5.0-8.0 [facility] Comment on above: Order Comment: Speci men Type: URINE SPECIMENOrdering Facility: [facility] Address: [address] [place] [address] Performed By: #### 2 4356-8 ####[facility] LABORATORYCLIA [id number] [place] [address] [place] Protein (U) [Mass/Vol] Trace Normal Trace, Negative [facility] Comment on above: Order Comment: Speci men Type: URINE SPECIMENOrdering Facility: [facility] Address: [address] [place] [address] Performed By: #### 2 4356-8 ####[facility]ATORYCLIA [id number] [place] [address] [place] RBC LM.HPF (Urine sed) [#/Area] 0-3 /HPF Normal 0-3 /HPF [facility] Comment on above: Order Comment: Speci men Type: URINE SPECIMENOrdering Facility: [facility] Address: [address] [place] [address] Performed By: #### 2 4356-8 ####[facility]ATORYCLIA [id number] [place] [address] [place] Specific gravity (U) [Rel density] 1.013 Normal 1.005-1.03 0 [facility] Comment on above: Order Comment: Speci men Type: URINE SPECIMENOrdering Facility: [facility] Address: [address] [place] [address] Performed By: #### 2 4356-8 ####[facility]ATORYCLIA [id number] [place] [address] [place] URIC ACID CRYSTALS (UA) Moderate Abnormal None Seen [facility] Comment on above: Order Comment: Speci men Type: URINE SPECIMENOrdering Facility: [facility] Address: [address] [place] [address] Performed By: #### 2 4356-8 ####[facility]ORATORYCLIA [id number] [place] [address] [place] Urobilinogen Ql (U) Negative Normal Negative [facility] Comment on above: Order Comment: Speci men Type: URINE SPECIMENOrdering Facility: [facility] Address: [address] [place] [address] Performed By: #### 2 4356-8 ####[facility]ORATORYCLIA [id number] [place] [address] [place] WBC LM.HPF (Urine sed) [#/Area] 0-5 /HPF Normal 0-5 /HPF [facility] Comment on above: Order Comment: Speci men Type: URINE SPECIMENOrdering Facility: [facility] Address: [address] [place] [address] Performed By: #### 2 4356-8 ####[facility] LABORATORYCLIA [id number] [place] [id number] [place] ALLIED HEALTHon 08-28-2023 ALLIED HEALTH Normal [facility] ALLIED HEALTH Normal [facility] Bacteria Bld Culton 08-28-19 24 Bacteria identified Cx Nom (Bld) CULTURE, BLOOD: No growth 5 days Normal [facility] Comment on above: Performed By: #### 6 00-7 ####[facility] LABCLIA [id number] [place] [address] [place] CASE MGT INIT ASSESon 2023 CASE MGT INIT ASSES Normal [facility] CBC W Auto Differential pane l (Bld)on 08-28-2023 Basophils (Bld) [#/Vol] 0.03 10*3/uL Normal <0.11 [facility] Comment on above: Order Comment: Speci men Type: BLOOD SPECIMENOrdering Facility: [facility] Address: [address] [place] [address] Performed By: #### 5 7021-8 ####[facility] LABORATORYCLIA [id number] [place] [address] [place] Basophils/100 WBC (Bld) 0.3 % Normal [facility] Comment on above: Order Comment: Speci men Type: BLOOD SPECIMENOrdering Facility: [facility] Address: [address] [place] [address] Performed By: #### 5 7021-8 ####[facility] LABORATORYCLIA [id number] [place] [address] [place] Differential cell count method Nom (Bld) Auto Normal [facility] Comment on above: Order Comment: Speci men Type: BLOOD SPECIMENOrdering Facility: [facility] Address: [address] [place] [address] Performed By: #### 5 7021-8 ####[facility] LABORATORYCLIA [id number] [address] [place] Eosinophils (Bld) [#/Vol] 0.06 10*3/uL Normal <0.46 [facility] Comment on above: Order Comment: Speci men Type: BLOOD SPECIMENOrdering Facility: [facility] Address: [address] [place] [address] Performed By: #### 5 7021-8 ####[facility] LABORATORYCLIA [id number] [address] Eosinophils/100 WBC (Bld) 0.6 % Normal [facility] Comment on above: Order Comment: Speci men Type: BLOOD SPECIMENOrdering Facility: [facility] Address: [address] [place] [address] Performed By: #### 5 7021-8 ####[facility] LABORATORYCLIA [id number] [address] [place] Erythrocyte distribution width (RBC) [Ratio] 12.3 % Normal 11.5-15.0 [facility] Comment on above: Order Comment: Speci men Type: BLOOD SPECIMENOrdering Facility: [facility] Address: [address] [place] [address] Performed By: #### 5 7021-8 ####[facility] LABORATORYCLIA [id number] [address] [place] [facility] Hematocrit (Bld) [Volume fraction] 42.0 % Normal 39.0-51.0 [facility] Comment on above: Order Comment: Speci men Type: BLOOD SPECIMENOrdering Facility: [facility] Address: [address] [place] [address] Performed By: #### 5 7021-8 ####[facility] LABORATORYCLIA [id number] [place] [id number] [place] Hemoglobin (Bld) [Mass/Vol] 14.3 g/dL Normal 13.0-17.0 [facility] Comment on above: Order Comment: Speci men Type: BLOOD SPECIMENOrdering Facility: [facility] Address: [address] [place] [address] Performed By: #### 5 7021-8 ####[facility] LABORATORYCLIA [id number] [place] [address] [place] Immature granulocytes (Bld) [#/Vol] 0.16 10*3/uL High <0.10 [facility] Comment on above: Order Comment: Speci men Type: BLOOD SPECIMENOrdering Facility: [facility] Address: [address] [place] [address] Performed By: #### 5 7021-8 ####[facility] LABORATORYCLIA [id number] [place] [id number] [place] Immature granulocytes/100 WBC (Bld) 1.6 % Normal [facility] Comment on above: Order Comment: Speci men Type: BLOOD SPECIMENOrdering Facility: [facility] Address: [address] [place] [address] Performed By: #### 5 7021-8 ####[facility] LABORATORYCLIA [id number] [place] [address] [place] Lymphocytes (Bld) [#/Vol] 1.27 10*3/uL Normal 1.00-4.00 [facility] Comment on above: Order Comment: Speci men Type: BLOOD SPECIMENOrdering Facility: [facility] Address: [address] [place] [address] Performed By: #### 5 7021-8 ####[facility] LABORATORYCLIA [id number] [address] [place] Lymphocytes/100 WBC (Bld) 12.7 % Normal [facility] Comment on above: Order Comment: Speci men Type: BLOOD SPECIMENOrdering Facility: [facility] Address: [address] [place] [address] Performed By: #### 5 7021-8 ####[facility] LABORATORYCLIA [id number] [place] [address] [place] MCH (RBC) [Entitic mass] 29.5 pg Normal 26.0-34.0 [facility] Comment on above: Order Comment: Speci men Type: BLOOD SPECIMENOrdering Facility: [facility] Address: [address] [place] [address] Performed By: #### 5 7021-8 ####[facility]ORATORYCLIA [id number] [place] [address] [place] MCHC (RBC) [Mass/Vol] 34.0 g/dL Normal 30.5-36.0 [facility] Comment on above: Order Comment: Speci men Type: BLOOD SPECIMENOrdering Facility: [facility] Address: [address] [place] [address] Performed By: #### 5 7021-8 ####[facility] LABORATORYCLIA [id number] [place] [address] [place] MCV (RBC) [Entitic vol] 86.8 fL Normal 80.0-100.0 [facility] Comment on above: Order Comment: Speci men Type: BLOOD SPECIMENOrdering Facility: [facility] Address: [address] [place] [address] Performed By: #### 5 7021-8 ####[facility]ORATORYCLIA [id number] [place] [address] [place] Monocytes (Bld) [#/Vol] 0.52 10*3/uL Normal <0.87 [facility] Comment on above: Order Comment: Speci men Type: BLOOD SPECIMENOrdering Facility: [facility] Address: [address] [place] [address] Performed By: #### 5 7021-8 ####[facility]ORATORYCLIA [id number] [address] [place] Monocytes/100 WBC (Bld) 5.2 % Normal [facility] Comment on above: Order Comment: Speci men Type: BLOOD SPECIMENOrdering Facility: [facility] Address: [address] [place] [address] Performed By: #### 5 7021-8 ####[facility]ORATORYCLIA [id number] [place] [address] [place] Neutrophils (Bld) [#/Vol] 7.97 10*3/uL High 1.45-7.50 [facility] Comment on above: Order Comment: Speci men Type: BLOOD SPECIMENOrdering Facility: [facility] Address: [address] [place] [address] Performed By: #### 5 7021-8 ####[facility] LABORATORYCLIA [id number] [place] [address] [place] Neutrophils/100 WBC (Bld) 79.6 % Normal [facility] Comment on above: Order Comment: Speci men Type: BLOOD SPECIMENOrdering Facility: [facility] Address: [address] [place] [address] Performed By: #### 5 7021-8 ####[facility] LABORATORYCLIA [id number] [place] [address] [place] Nucleated RBC (Bld) [#/Vol] 10*3/uL Normal <0.01 [facility] Comment on above: Order Comment: Speci men Type: BLOOD SPECIMENOrdering Facility: [facility] Address: [address] [place] [address] Performed By: #### 5 7021-8 ####[facility] LABORATORYCLIA [id number] [place] [address] [place] Nucleated RBC/100 WBC (Bld) [Ratio] 0.0 /100 WBC Normal [facility] Comment on above: Order Comment: Speci men Type: BLOOD SPECIMENOrdering Facility: [facility] Address: [address] [place] [address] Performed By: #### 5 7021-8 ####[facility] LABORATORYCLIA [id number] [place] [id number] [place] Platelet mean volume (Bld) [Entitic vol] 10.4 fL Normal 9.0-12.7 [facility] Comment on above: Order Comment: Speci men Type: BLOOD SPECIMENOrdering Facility: [facility] Address: [address] [place] [address] Performed By: #### 5 7021-8 ####[facility] LABORATORYCLIA [id number] [place] [address] [place] Platelets (Bld) [#/Vol] 529 10*3/uL High 150-400 [facility] Comment on above: Order Comment: Speci men Type: BLOOD SPECIMENOrdering Facility: [facility] Address: [address] [place] [address] Performed By: #### 5 7021-8 ####[facility] LABORATORYCLIA [id number] [place] [id number] [place] RBC (Bld) [#/Vol] 4.84 10*6/uL Normal 4.20-6.00 [facility] Comment on above: Order Comment: Speci men Type: BLOOD SPECIMENOrdering Facility: [facility] Address: [address] [place] [address] Performed By: #### 5 7021-8 ####[facility] LABORATORYCLIA [id number] [place] [id number] [place] WBC (Bld) [#/Vol] 10.01 10*3/uL Normal 3.70-11.00 [facility] Comment on above: Order Comment: Speci men Type: BLOOD SPECIMENOrdering Facility: [facility] Address: [place] [address] Performed By: #### 5 7021-8 ####[facility] LABORATORYCLIA [id number] [place] [id number] [facility] [place] CNOVon 08-28-2023 CNOV Office Visit (GENNOM ) -- AISHA JULIEN ([id number]) 1955 M Date Time Provider Department 08/28/23 10:15 AM [facility] During your visit today, we recorded the following information about you: Pulse Blood pressure Weight Height 100/minute 93/53 61.2 kg 1.765 m Cleveland Alberts MD 08/28/2023 5:08 PM Signed Established Patient Visit REASON FOR VISIT Follow up after recent hospitalization History of Present Illness: Aisha Julien is a 68 year old male who was 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 The patient also presented initially with a gastric outlet obstruction and was admitted for nutritional support and workup. He underwent an EUS biopsy of the mesenteric node that showed low-grade neuroendocrine tumor and had PEG-J extension placed for gastric venting and enteric feeds. He was discharged home a few days ago on tube feeds that were tolerated in the hospital. However, he presents today to clinic with severe abdominal discomfort and signs of dehydration including very low blood pressure and tachycardia. He states that the tube feeds were only partially tolerated at goal and that he has to shut it off a few times during the day to allow for comfort. He is having normal bowel habits but has not had any in the last 3 days. Continues to report nausea and vomiting despite the G-tube. FUNCTIONAL STATUS: Take care of self, that is eating, dressing, bathing, using the toilet (2.75 METs) PAST MEDICAL HISTORY Diagnosis Date Essential hypertension GERD (gastroesophageal reflux disease) PAST SURGICAL HISTORY Procedure Laterality Date ARTHROSCOPY KNEE DIAGNOSTIC W/WO SYNOVIAL BX SPX Bilateral COLONOSCOPY DIAGNOSTIC 2021 no polyps EGD DIAGNOSTIC 08/14/2023 FAMILY HISTORY Problem Relation Age of Onset Colon Cancer No Family History Social History Tobacco Use Smoking status: Never Smokeless tobacco: Never Vaping Use Vaping Use: Former Substance Use Topics Alcohol use: Not Currently Drug use: Not Currently MEDICATIONS Current Outpatient Medications Medication Sig Dispense Refill PEPTAMEN 1.5 0.068 gram- 1.5 kcal/mL Tube Feeding Formula Type: Peptamen 1.5 Goal Rate (mL/hr x hours): 60 ml hr x 24 = 1440 ml = 2160 kcal and 98 gm protein Water Flush Volume (mL x frequency: 150 ml q 4 Recommended Enteral Access: PEG with Jejunal Extension 1440 mL 30 potassium (POTASSIMIN ORAL) Take by mouth. dilTIAZem CD (CARDIZEM CD, CARTIA XT) 180 mg 24 hr capsule Take 240 mg by mouth every morning. metoprolol succinate ER (TOPROL XL) 100 mg Take 50 mg by mouth one time only. tamsulosin (FLOMAX) 0.4 mg Take 0.4 mg by mouth one time only. losartan (COZAAR) 100 mg tablet Take 100 mg by mouth every morning. finasteride (PROSCAR) 5 mg tablet Take 5 mg by mouth every other day. pantoprazole DR (PROTONIX) 40 mg tablet Take 1 tablet by mouth every afternoon. ondansetron (ZOFRAN) 4 mg tablet TAKE 1 TABLET BY MOUTH EVERY 8 HOURS NEEDED FOR NAUSEA OR FOR VOMITING FOR UP TO 7 DAYS No current facility-administered medications for this visit. CURRENT ALLERGIES ALLERGIES No Known Allergies REVIEW OF SYSTEMS PAIN ASSESSMENT: Pain Pain Level: 10 Pain Location: Abdomen Description: Sharp Duration Amount of Time: 5 Duration Units: Days General: Malaise Neuro: No Hx of stroke or seizures Respiratory: No history of current cough or dyspnea, or pneumonia in the past 6 weeks. No history of respiratory/pulmonary symptoms or problems Cardiovascular: Hypertension on medication GI: See HPI : No history of UTI in past 6 weeks. No history of renal failure. Not currently on or requiring dialysis. No history of symptoms or problems. Endocrine: No history of diabetes. Has not taken steroids within the past 30 days. No history of endocrinological symptoms or problems. Hematology: No history of bleeding or clotting disorder. Pt is not taking anti-coagulation or platelet medications. No history of hematological symptoms or problems. Oncology: No history of CA metastasis, chemo within 30 days, or radiotherapy within 90 days. Has not lost 10% of body wt in 6 months. No history of oncological symptoms or problems. Psych: No history of psychiatric symptoms or problems. Musculoskeletal: Negative for joint pain or swelling, back pain or muscle pain. Skin: Negative for lesions, rash and itching. Anemia: No PHYSICAL EXAMINATION BP 93/53 Pulse 100 Ht 5' 9.5 (1.77m) Wt 135 lb (61.2kg) BMI 19.66 kg/(m2). General Appearance: Fatigued, in pain, laying on the bed and appears uncomfortable Skin: Skin color, texture, turgor normal, no suspicious rashes or lesions Head: Normocephalic, no masses, lesions, tenderness or abnormalities Oropharynx: Lips, (more content not included)... Normal [facility] CONSULTon 08-28-2023 CONSULT Normal [facility] CT ABD/PEL WO IVCONon 2023 CT ABD/PEL WO IVCON Normal [facility] CT BRAIN WO IVCONon 08-28-19 CT BRAIN WO IVCON Normal [facility] metabolic 2000 panelon 01-04-2024 Albumin [Mass/Vol] 4.1 g/dL Normal 3.9-4.9 [facility] Comment on above: Order Comment: Speci men Type: BLOOD SPECIMENOrdering Facility: [facility] Address: [place] [address] Performed By: #### 2 4323-8, [id number], 68178-4, 07531-8, 3040-3 ####[facility] LABORATORYCLIA [id number] [place] [id number] [place] ALP [Catalytic activity/Vol] 284 U/L High 38-113 [facility] Comment on above: Order Comment: Speci men Type: BLOOD SPECIMENOrdering Facility: [facility] Address: [address] [place] [address] Performed By: #### 2 4323-8, [id number], 70589-4, 39367-3, 3040-3 ####[facility] LABORATORYCLIA [id number] [place] [address] [place] ALT [Catalytic activity/Vol] 65 U/L High 10-54 [facility] Comment on above: Order Comment: Speci men Type: BLOOD SPECIMENOrdering Facility: [facility] Address: [address] [place] [address] Performed By: #### 2 4323-8, [id number], 03968-6, 87382-1, 3040-3 ####[facility] LABORATORYCLIA [id number] [place] [address] [place] Anion gap [Moles/Vol] 18 mmol/L Normal 9-18 [facility] Comment on above: Order Comment: Speci men Type: BLOOD SPECIMENOrdering Facility: [facility] Address: [address] [place] [address] Performed By: #### 2 4323-8, [id number], 21101-4, 78662-5, 3040-3 ####[facility] LABORATORYCLIA [id number] [place] [address] [place] AST [Catalytic activity/Vol] 33 U/L Normal 14-40 [facility] Comment on above: Order Comment: Speci men Type: BLOOD SPECIMENOrdering Facility: [facility] Address: [address] [place] [address] Performed By: #### 2 4323-8, ASZ2996, 88094-9, 83778-0, 3040-3 ####[facility] LABORATORYCLIA [id number] [place] [address] [place] Bilirubin [Mass/Vol] 0.7 mg/dL Normal 0.2-1.3 [facility] Comment on above: Order Comment: Speci men Type: BLOOD SPECIMENOrdering Facility: [facility] Address: [address] [place] [address] Performed By: #### 2 4323-8, [id number], 23342-6, 06579-8, 3040-3 ####[facility] LABORATORYCLIA [id number] [place] [address] [place] Calcium [Mass/Vol] 9.5 mg/dL Normal 8.5-10.2 [facility] Comment on above: Order Comment: Speci men Type: BLOOD SPECIMENOrdering Facility: [facility] Address: [address] [place] [address] Performed By: #### 2 4323-8, [id number], 56350-8, 86317-1, 3040-3 ####[facility] LABORATORYCLIA [id number] [place] [address] [place] Chloride [Moles/Vol] 96 mmol/L Low 97-105 [facility] Comment on above: Order Comment: Speci men Type: BLOOD SPECIMENOrdering Facility: [facility] Address: [address] [place] [address] Performed By: #### 2 4323-8, [id number], 81001-9, 17429-8, 3040-3 ####[facility] LABORATORYCLIA [id number] [place] [address] [place] CO2 [Moles/Vol] 12 mmol/L Low 22-30 [facility] Comment on above: Order Comment: Speci men Type: BLOOD SPECIMENOrdering Facility: [facility] Address: [address] [place] [address] Performed By: #### 2 4323-8, QCM7156, 44844-4, 19014-8, 3040-3 ####[facility]ORATORYCLIA [id number] [place] [address] [place] Creatinine [Mass/Vol] 2.53 mg/dL High 0.73-1.22 [facility] Comment on above: Order Comment: Arben suarez Type: BLOOD SPECIMENOrdering Facility: [facility] Address: [address] [place] [address] Performed By: #### 2 4323-8, [id number], 99315-2, 79034-8, 3040-3 ####[facility]ORATORYCLIA [id number] [place] [address] [place] Creatinine and Glomerular filtration rate.predicted panel (S/P/Bld) 27 mL/min/1.73m??? Low >=60 [facility] Comment on above: Order Comment: Arben suraez Type: BLOOD SPECIMENOrdering Facility: [facility] Address: [address] [place] [address] Result Comment: Bailey mated Glomerular Filtration Rate (eGFR) is calculated using the 2020 CKD-EPI creatinine equation. This equation utilizes serum creatinine, sex, and age as parameters. The creatinine assay has traceable calibration to isotope dilution-mass spectrometry. Refer to KDIGO guidelines for clinical interpretation. In patients with unstable renal function, e.g. those with acute kidney injury, the eGFR may not accurately reflect actual GFR. Performed By: #### 2 4323-8, SAN5524, 78583-0, 89273-8, 3040-3 ####[facility]ORATORYCLIA [id number] [place] [address] [place] Glucose [Mass/Vol] 138 mg/dL High 74-99 [facility] Comment on above: Order Comment: Arben suarez Type: BLOOD SPECIMENOrdering Facility: [facility] Address: [address] [place] [address] Result Comment: The [place] Diabetes Association (ADA) provides guidance for cutoff values for fasting glucose and random glucose. The ADA defines fasting as no caloric intake for at least 8 hours. Fasting plasma glucose results between 100 to 125 mg/dL indicate increased risk for diabetes (prediabetes).Fasting plasma glucose results greater than or equal to 126 mg/dL meet the criteria for diagnosis of diabetes. In the absence of unequivocal hyperglycemia, results should be confirmed by repeat testing. In a patient with classic symptoms of hyperglycemia or hyperglycemic crisis, random plasma glucose results greater than or equal to 200 mg/dL meet the criteria for diagnosis of diabetes.Reference: Standards of Medical Care in Diabetes 2016, [place] [employer] Association. Diabetes Care. 2016.39(Suppl 1). Performed By: #### 2 4323-8, XPW3514, 21139-5, 99965-0, 3040-3 ####[facility] LABORATORYCLIA [id number] [place] [address] [place] Potassium [Moles/Vol] 5.4 mmol/L High 3.7-5.1 [facility] Comment on above: Order Comment: Speci men Type: BLOOD SPECIMENOrdering Facility: [facility] Address: [address] [place] [address] Performed By: #### 2 4323-8, [id number], 30381-5, 52573-5, 3040-3 ####[facility] LABORATORYCLIA [id number] [place] [address] [place] Protein [Mass/Vol] 8.2 g/dL High 6.3-8.0 [facility] Comment on above: Order Comment: Speci men Type: BLOOD SPECIMENOrdering Facility: [facility] Address: [address] [place] [address] Performed By: #### 2 4323-8, POF4238, 05247-2, 61241-0, 3040-3 ####[facility] LABORATORYCLIA [id number] [place] [address] [place] Sodium [Moles/Vol] 126 mmol/L Low 136-144 [facility] Comment on above: Order Comment: Speci men Type: BLOOD SPECIMENOrdering Facility: [facility] Address: [address] [place] [address] Performed By: #### 2 4323-8, RML6164, 39001-0, 76051-0, 3040-3 ####[facility]ORATORYCLIA [id number] [place] [address] [place] Urea nitrogen [Mass/Vol] 79 mg/dL High 9 [facility] Comment on above: Order Comment: Speci men Type: BLOOD SPECIMENOrdering Facility: [facility] Address: [address] [place] [address] Performed By: #### 2 4323-8, EKI2127, 12362-0, 67348-1, 3040-3 ####[facility]ORATORYCLIA [id number] [place] [address] [place] ECG COMPLETEon 08-28-2023 ECG COMPLETE Normal [facility] ED NOTEon 08-28-2023 ED NOTE HNO ID: [id number] Author: ASTRID VALLE RN Service: ? Author Type: Registered Nurse Type: ED Notes Filed: 08/28/2023 19:07 Note Text: Report to LUCILLE Cheng [facility] ED NOTE HNO ID: [id number] Author: ASTRID VALLE RN Service: ? Author Type: Registered Nurse Type: ED Notes Filed: 08/28/2023 18:33 Note Text: RN unable to obtain oral or axillary temperature. Pt refusing rectal temperature at this time. [facility] ED NOTE HNO ID: [id number] Author: JAVON AVILES RN Service: ? Author Type: Registered Nurse Type: ED Notes Filed: 08/28/2023 17:23 Note Text: Bed: 26-ED Expected date: Expected time: Means of arrival: Comments: triage Normal [facility] ED PROV NOTEon 08-28-2023 ED PROV NOTE Normal [facility] ED Triage Noteon 08-28-2023 ED Triage Note [facility] FLUABV+SARS-CoV-2+RSV Pnl Re sp VERITO+probeon 08-28-2023 FLUABV+SARS-CoV-2+RSV Pnl Resp VERITO+probe Normal [facility] Comment on above: Performed By: #### 9 5941-1 ####[facility]ORATORYCLIA [id number] [address] [place] HIGH SENSITIVITY TROPONIN T (INITIAL)on 08-28-2023 Troponin T.cardiac High sensitivity method [Mass/Vol] 38 ng/L High <12 [facility] Comment on above: Order Comment: Arben suarez Type: BLOOD SPECIMENOrdering Facility: [facility] Address: [address] [place] [address] Result Comment: When assessing risk for acute coronary syndromes: In patients undergoing blood draw greater than or equal to 2 hours from symptom onset, with history of very low to moderate risk and non-ischemic ECG, an initial hs-Troponin T less than 12 ng/L AND a 1 hour delta hs-Troponin T less than 3 ng/L should be considered very low risk for 30 day MACE. Performed By: #### 2 4323-8, [id number], 58921-7, 49870-2, 3040-3 ####[facility] LABORATORYCLIA [id number] [place] [address] [place] HIGH SENSITIVITY TROPONIN T (SECOND)on 08-28-2023 Troponin T.cardiac High sensitivity method [Mass/Vol] 36 ng/L High <12 [facility] Comment on above: Order Comment: Arben suarez Type: BLOOD SPECIMENOrdering Facility: [facility] Address: [address] [place] [address] Result Comment: When assessing risk for acute coronary syndromes: In patients undergoing blood draw greater than or equal to 2 hours from symptom onset, with history of very low to moderate risk and non-ischemic ECG, an initial hs-Troponin T less than 12 ng/L AND a 1 hour delta hs-Troponin T less than 3 ng/L should be considered very low risk for 30 day MACE. Performed By: #### L [id number] ####[facility] LABORATORYCLIA [id number] [place] [id number] [place] Lipase SerPl-cCncon 08-28-19 24 Lipase [Catalytic activity/Vol] 148 U/L High 16 [facility] Comment on above: Order Comment: Arben suarez Type: BLOOD SPECIMENOrdering Facility: [facility] Address: [address] [place] [address] Performed By: #### 2 4323-8, TBU1811, 54512-0, 91208-2, 3040-3 ####[facility] LABORATORYCLIA [id number] [place] [id number] [place] Magnesium [facility] 08-28 Magnesium [Mass/Vol] 2.5 mg/dL High 1.7-2.3 [facility] Comment on above: Order Comment: Arben suarez Type: BLOOD SPECIMENOrdering Facility: [facility] Address: [address] [place] [address] Performed By: #### 2 4323-8, [id number], 01102-9, 25347-9, 3040-3 ####[facility] LABORATORYCLIA [id number] [place] [address] [facility] NT-proBNP [facility] 08-28 Natriuretic peptide.B prohormone N-Terminal [Mass/Vol] 404 pg/mL High <125 [facility] Comment on above: Order Comment: Arben suarez Type: BLOOD SPECIMENOrdering Facility: [facility] Address: [address] [place] [address] Performed By: #### 2 4323-8, WSB2459, 66572-9, 75181-6, 3040-3 ####[facility] LABORATORYCLIA [id number] [place] [id number] [facility] PT panel Coag (PPP)on 2023 INR Coag (PPP) [Relative time] 1.3 {INR} Normal 0.9-1.3 [facility] Comment on above: Order Comment: Arben suarez Type: BLOOD SPECIMENOrdering Facility: [facility] Address: [address] [place] [address] Result Comment: Karissa min K Antagonist (VKA) Therapeutic Range: INR 2 to 3 (Target INR of 2.5)Note: For patients treated with VKA drugs, such as warfarin, the [place] [employer] 2012 Guideline recommends a therapeutic INR range of 2 to 3 (target INR of 2.5). This recommendation includes high-risk patients with antiphospholipid syndrome with previous arterial or venous thromboembolism, current-generation mechanical or bioprosthetic aortic heart valve replacement.Note: Patients with mechanical aortic valve replacement and additional risk factors for thromboembolic events (atrial fibrillation, previous thromboembolism, LV dysfunction, hypercoagulable conditions) or an older generation mechanical AVR (i.e., ball in-Cage) or any mechanical MVR should have a INR therapeutic range of 2.5 to 3.5 (target INR of 3).Lizy WATSON, et al. Chest 2012, 141:7S-47SBeau RA, et al. [facility] 2017, 70: 252-289 Performed By: #### 3 4528-0, 66423-0 ####[facility] LABORATORYCLIA [id number] [place] [id number] [place] PT Coag (PPP) [Time] 13.7 s High 9.7-13.0 [facility] Comment on above: Order Comment: Speci men Type: BLOOD SPECIMENOrdering Facility: [facility] Address: [address] [place] [address] Performed By: #### 3 4528-0, 16809-4 ####[facility] LABORATORYCLIA [id number] [address] [place] SEPSIS LACTATEon 08-28-2023 Lactate [Moles/Vol] 2.2 mmol/L High 0.0-2.0 [facility] Comment on above: Order Comment: Speci men Type: BLOOD SPECIMENOrdering Facility: [facility] Address: [address] [place] [address] Performed By: #### S LACT ####[facility] LABORATORYCLIA [id number] [address] STATES [facility] Lactate [Moles/Vol] 2.6 mmol/L High 0.0-2.0 [facility] Comment on above: Order Comment: Speci men Type: BLOOD SPECIMENOrdering Facility: [facility] Address: [address] [place] [address] Performed By: #### S LACT ####[facility] LABORATORYCLIA [id number] [address] [place] XR ABDOMEN 1V SUPINEon 08-28 XR ABDOMEN 1V SUPINE Normal [facility] XR CHEST 1V FRONTAL PORTon 0 08-28-2023 XR CHEST 1V FRONTAL PORT Normal [facility] aPTT PPPon 08-28-2023 aPTT Coag (PPP) [Time] 32.1 s Normal 23.0-32.4 [facility] Comment on above: Order Comment: Speci men Type: BLOOD SPECIMENOrdering Facility: [facility] Address: [place] [address] Performed By: #### 3 4528-0, 62043-5 ####[facility] LABORATORYCLIA [id number] [place] [id number] [place] CASE MANAGEMon 08-17-2023 CASE MANAGEM Normal [facility] CNDSon 08-17-2023 CNDS Normal [facility] Comprehensive metabolic 2000 panelon 08-17-2023 Albumin [Mass/Vol] 3.0 g/dL Low 3.9-4.9 [facility] Comment on above: Order Comment: Speci men Type: BLOOD SPECIMENOrdering Facility: [facility] Address: [place] [address] Performed By: #### 2 4323-8, 27702-22, ####[facility] LABORATORYCLIA [id number] [place] [address] [place] ALP [Catalytic activity/Vol] 137 U/L High 38-113 [facility] Comment on above: Order Comment: Speci men Type: BLOOD SPECIMENOrdering Facility: [facility] Address: [place] [address] Performed By: #### 2 4323-8, 2776-08, ####[facility] LABORATORYCLIA [id number] [place] [id number] [place] ALT [Catalytic activity/Vol] 19 U/L Normal 10-54 [facility] Comment on above: Order Comment: Speci men Type: BLOOD SPECIMENOrdering Facility: [facility] Address: [address] [place] [address] Performed By: #### 2 4323-8, 27702-22, ####[facility] LABORATORYCLIA [id number] [place] [address] [place] Anion gap [Moles/Vol] 11 mmol/L Normal 9-18 [facility] Comment on above: Order Comment: Speci men Type: BLOOD SPECIMENOrdering Facility: [facility] Address: [address] [address] Performed By: #### 2 4323-8, 2776-08, ####[facility] LABORATORYCLIA [id number] [place] [address] [place] AST [Catalytic activity/Vol] 18 U/L Normal 14-40 [facility] Comment on above: Order Comment: Speci men Type: BLOOD SPECIMENOrdering Facility: [facility] Address: [address] [facility] [place] [address] Performed By: #### 2 4323-8, 2776-08, ####[facility] LABORATORYCLIA [id number] [place] [address] [place] Bilirubin [Mass/Vol] 0.8 mg/dL Normal 0.2-1.3 [facility] Comment on above: Order Comment: Speci men Type: BLOOD SPECIMENOrdering Facility: [facility] Address: [address] [place] [address] Performed By: #### 2 4323-8, 2776-08, ####[facility] LABORATORYCLIA [id number] [place] [address] [place] Calcium [Mass/Vol] 8.4 mg/dL Low 8.5-10.2 [facility] Comment on above: Order Comment: Speci men Type: BLOOD SPECIMENOrdering Facility: [facility] Address: [address] [place] [address] Performed By: #### 2 4323-8, 2776-08, ####[facility] LABORATORYCLIA [id number] [place] [address] [place] Chloride [Moles/Vol] 102 mmol/L Normal 97-105 [facility] Comment on above: Order Comment: Speci men Type: BLOOD SPECIMENOrdering Facility: [facility] Address: [address] [facility] [place] [address] Performed By: #### 2 4323-8, 7, ####[facility] LABORATORYCLIA [id number] [place] [address] [place] CO2 [Moles/Vol] 22 mmol/L Normal 22-30 [facility] Comment on above: Order Comment: Speci men Type: BLOOD SPECIMENOrdering Facility: [facility] Address: [address] [place] [address] Performed By: #### 2 4323-8, 27702-22, ####[facility] LABORATORYCLIA [id number] [place] [address] [place] Creatinine [Mass/Vol] 1.06 mg/dL Normal 0.73-1.22 [facility] Comment on above: Order Comment: Speci men Type: BLOOD SPECIMENOrdering Facility: [facility] Address: [address] [place] [address] Performed By: #### 2 4323-8, 27702-22, ####[facility] LABORATORYCLIA [id number] [place] [id number] [place] Creatinine and Glomerular filtration rate.predicted panel (S/P/Bld) 76 mL/min/1.73m??? Normal >=60 [facility] Comment on above: Order Comment: Speci men Type: BLOOD SPECIMENOrdering Facility: [facility] Address: [address] [place] [address] Result Comment: Bailey mated Glomerular Filtration Rate (eGFR) is calculated using the 2020 CKD-EPI creatinine equation. This equation utilizes serum creatinine, sex, and age as parameters. The creatinine assay has traceable calibration to isotope dilution-mass spectrometry. Refer to KDIGO guidelines for clinical interpretation. In patients with unstable renal function, e.g. those with acute kidney injury, the eGFR may not accurately reflect actual GFR. Performed By: #### 2 4323-8, 27702-22, ####[facility] LABORATORYCLIA [id number] [place] [address] [place] Glucose [Mass/Vol] 119 mg/dL High 74-99 [facility] Comment on above: Order Comment: Speci men Type: BLOOD SPECIMENOrdering Facility: [facility] Address: [address] [place] [id number] Result Comment: The [place] [employer] (ADA) provides guidance for cutoff values for fasting glucose and random glucose. The ADA defines fasting as no caloric intake for at least 8 hours. Fasting plasma glucose results between 100 to 125 mg/dL indicate increased risk for diabetes (prediabetes).Fasting plasma glucose results greater than or equal to 126 mg/dL meet the criteria for diagnosis of diabetes. In the absence of unequivocal hyperglycemia, results should be confirmed by repeat testing. In a patient with classic symptoms of hyperglycemia or hyperglycemic crisis, random plasma glucose results greater than or equal to 200 mg/dL meet the criteria for diagnosis of diabetes.Reference: Standards of Medical Care in Diabetes 2016, [place] [employer]. Diabetes Care. 2016.39(Suppl 1). Performed By: #### 2 4323-8, 2776-08, ####[facility] LABORATORYCLIA [id number] [place] [id number] [place] Potassium [Moles/Vol] 3.9 mmol/L Normal 3.7-5.1 [facility] Comment on above: Order Comment: Speci men Type: BLOOD SPECIMENOrdering Facility: [facility] Address: [place] [address] Performed By: #### 2 4323-8, 2776-08, ####[facility] LABORATORYCLIA [id number] [place] [id number] [place] Protein [Mass/Vol] 5.9 g/dL Low 6.3-8.0 [facility] Comment on above: Order Comment: Speci men Type: BLOOD SPECIMENOrdering Facility: [facility] Address: [address] [place] [address] Performed By: #### 2 4323-8, 2776-08, ####[facility] LABORATORYCLIA [id number] [place] [id number] [place] Sodium [Moles/Vol] 135 mmol/L Low 136-144 [facility] Comment on above: Order Comment: Speci men Type: BLOOD SPECIMENOrdering Facility: [facility] Address: [address] [place] [id number] Performed By: #### 2 4323-8, 2777-1, ####[facility] LABORATORYCLIA [id number] [place] [id number] [place] [facility] Urea nitrogen [Mass/Vol] 19 mg/dL Normal 05-18 [facility] Comment on above: Order Comment: Speci men Type: BLOOD SPECIMENOrdering Facility: [facility] Address: [place] [address] Performed By: #### 2 4323-8, 27771, ####[facility] LABORATORYCLIA [id number] [place] [id number] [place] [facility] Magnesium [Mass/Vol] 2.3 mg/dL Normal 1.7-2.3 [facility] Comment on above: Order Comment: Speci men Type: BLOOD SPECIMENOrdering Facility: [facility] Address: [address] [place] [id number] Performed By: #### 2 4323-8, 2777, ####[facility] LABORATORYCLIA [id number] [place] [address] [place] NURSING PROGon 08-17-2023 NURSING PROG Normal [facility] Phosphate SerPl-mCncon 08-17 Phosphate [Mass/Vol] 3.0 mg/dL Normal 2.7-4.8 [facility] Comment on above: Order Comment: Speci men Type: BLOOD SPECIMENOrdering Facility: [facility] Address: [address] [place] [id number] Performed By: #### 2 4323-8, 2777-, ####[facility] LABORATORYCLIA [id number] [place] [id number] [place] CASE MANAGEMon 08-16-2023 CASE MANAGEM Normal [facility] CBC panel Auto (Bld)on 08-16 Erythrocyte distribution width (RBC) [Ratio] 12.0 % Normal 11.5-15.0 [facility] Comment on above: Order Comment: Speci men Type: BLOOD SPECIMENOrdering Facility: [facility] Address: [address] [place] [address] Performed By: #### 5 8410-2 ####[facility] LABORATORYCLIA [id number] [address] [place] Hematocrit (Bld) [Volume fraction] 33.3 % Low 39.0-51.0 [facility] Comment on above: Order Comment: Speci men Type: BLOOD SPECIMENOrdering Facility: [facility] Address: [address] [place] [address] Performed By: #### 5 8410-2 ####[facility] LABORATORYCLIA [id number] [place] [address] [place] Hemoglobin (Bld) [Mass/Vol] 11.1 g/dL Low 13.0-17.0 [facility] Comment on above: Order Comment: Speci men Type: BLOOD SPECIMENOrdering Facility: [facility] Address: [address] [place] [address] Performed By: #### 5 8410-2 ####[facility] LABORATORYCLIA [id number] [address] [place] MCH (RBC) [Entitic mass] 30.2 pg Normal 26.0-34.0 [facility] Comment on above: Order Comment: Speci men Type: BLOOD SPECIMENOrdering Facility: [facility] Address: [address] [place] [address] Performed By: #### 5 8410-2 ####[facility] LABORATORYCLIA [id number] [place] [address] [place] MCHC (RBC) [Mass/Vol] 33.3 g/dL Normal 30.5-36.0 [facility] Comment on above: Order Comment: Speci men Type: BLOOD SPECIMENOrdering Facility: [facility] Address: [address] [place] [address] Performed By: #### 5 8410-2 ####[facility] LABORATORYCLIA [id number] [place] [address] [place] MCV (RBC) [Entitic vol] 90.5 fL Normal 80.0-100.0 [facility] Comment on above: Order Comment: Speci men Type: BLOOD SPECIMENOrdering Facility: [facility] Address: [address] [place] [address] Performed By: #### 5 8410-2 ####[facility] LABORATORYCLIA [id number] [place] [address] [place] Nucleated RBC (Bld) [#/Vol] 10*3/uL Normal <0.01 [facility] Comment on above: Order Comment: Speci men Type: BLOOD SPECIMENOrdering Facility: [facility] Address: [address] [place] [address] Performed By: #### 5 8410-2 ####[facility] LABORATORYCLIA [id number] [place] [address] [place] Platelet mean volume (Bld) [Entitic vol] 11.3 fL Normal 9.0-12.7 [facility] Comment on above: Order Comment: Speci men Type: BLOOD SPECIMENOrdering Facility: [facility] Address: [address] [place] [address] Performed By: #### 5 8410-2 ####[facility] LABORATORYCLIA [id number] [place] [address] [place] Platelets (Bld) [#/Vol] 214 10*3/uL Normal 150-400 [facility] Comment on above: Order Comment: Speci men Type: BLOOD SPECIMENOrdering Facility: [facility] Address: [address] [place] [address] Performed By: #### 5 8410-2 ####[facility] LABORATORYCLIA [id number] [place] [address] [place] RBC (Bld) [#/Vol] 3.68 10*6/uL Low 4.20-6.00 [facility] Comment on above: Order Comment: Speci men Type: BLOOD SPECIMENOrdering Facility: [facility] Address: [address] [place] [address] Performed By: #### 5 8410-2 ####[facility] LABORATORYCLIA [id number] [place] [address] [place] WBC (Bld) [#/Vol] 7.23 10*3/uL Normal 3.70-11.00 [facility] Comment on above: Order Comment: Speci men Type: BLOOD SPECIMENOrdering Facility: [facility] Address: [address] [place] [address] Performed By: #### 5 8410-2 ####[facility] LABORATORYCLIA [id number] [place] [address] [place] CONSULTon 08-16-2023 CONSULT Normal [facility] Comprehensive metabolic 2000 panelon 08-16-2023 Albumin [Mass/Vol] 3.2 g/dL Low 3.9-4.9 [facility] Comment on above: Order Comment: Speci men Type: BLOOD SPECIMENOrdering Facility: [facility] Address: [address] [place] [address] Performed By: #### 2 777-1, , ####[facility] LABORATORYCLIA [id number] [place] [address] [place] ALP [Catalytic activity/Vol] 139 U/L High 38-113 [facility] Comment on above: Order Comment: Speci men Type: BLOOD SPECIMENOrdering Facility: [facility] Address: [address] [place] [address] Performed By: #### 2 777-1, , ####[facility] LABORATORYCLIA [id number] [place] [address] [place] ALT [Catalytic activity/Vol] 23 U/L Normal 10-54 [facility] Comment on above: Order Comment: Speci men Type: BLOOD SPECIMENOrdering Facility: [facility] Address: [address] [place] [address] Performed By: #### 2 777-1, , ####[facility] LABORATORYCLIA [id number] [place] [address] [place] Anion gap [Moles/Vol] 9 mmol/L Normal 9-18 [facility] Comment on above: Order Comment: Speci men Type: BLOOD SPECIMENOrdering Facility: [facility] Address: [address] [place] [address] Performed By: #### 2 777-1, , ####[facility] LABORATORYCLIA [id number] [place] [address] [place] AST [Catalytic activity/Vol] 22 U/L Normal 14-40 [facility] Comment on above: Order Comment: Speci men Type: BLOOD SPECIMENOrdering Facility: [facility] Address: [address] [place] [address] Performed By: #### 2 777-1, , ####[facility] LABORATORYCLIA [id number] [place] [address] [place] Bilirubin [Mass/Vol] 0.8 mg/dL Normal 0.2-1.3 [facility] Comment on above: Order Comment: Speci men Type: BLOOD SPECIMENOrdering Facility: [facility] Address: [address] [place] [address] Performed By: #### 2 777-1, , ####[facility] LABORATORYCLIA [id number] [place] [address] [place] Calcium [Mass/Vol] 8.7 mg/dL Normal 8.5-10.2 [facility] Comment on above: Order Comment: Speci men Type: BLOOD SPECIMENOrdering Facility: [facility] Address: [address] [place] [address] Performed By: #### 2 777-1, , ####[facility] LABORATORYCLIA [id number] [place] [address] [place] Chloride [Moles/Vol] 103 mmol/L Normal 97-105 [facility] Comment on above: Order Comment: Speci men Type: BLOOD SPECIMENOrdering Facility: [facility] Address: [address] [place] [address] Performed By: #### 2 777-1, , ####[facility] LABORATORYCLIA [id number] [place] [address] [place] CO2 [Moles/Vol] 25 mmol/L Normal 22-30 [facility] Comment on above: Order Comment: Speci men Type: BLOOD SPECIMENOrdering Facility: [facility] Address: [address] [place] [address] Performed By: #### 2 777-1, , ####[facility] LABORATORYCLIA [id number] [place] [id number] [place] Creatinine [Mass/Vol] 1.04 mg/dL Normal 0.73-1.22 [facility] Comment on above: Order Comment: Speci men Type: BLOOD SPECIMENOrdering Facility: [facility] Address: [address] [place] [address] Performed By: #### 2 777-1, , ####[facility] LABORATORYCLIA [id number] [place] [id number] [place] Creatinine and Glomerular filtration rate.predicted panel (S/P/Bld) 78 mL/min/1.73m??? Normal >=60 [facility] Comment on above: Order Comment: Specbrooks suarez Type: BLOOD SPECIMENOrdering Facility: [facility] Address: [address] [place] [address] Result Comment: Bailey mated Glomerular Filtration Rate (eGFR) is calculated using the 2020 CKD-EPI creatinine equation. This equation utilizes serum creatinine, sex, and age as parameters. The creatinine assay has traceable calibration to isotope dilution-mass spectrometry. Refer to KDIGO guidelines for clinical interpretation. In patients with unstable renal function, e.g. those with acute kidney injury, the eGFR may not accurately reflect actual GFR. Performed By: #### 2 777-1, , ####[facility] LABORATORYCLIA [id number] [place] [address] [place] Glucose [Mass/Vol] 111 mg/dL High 74-99 [facility] Comment on above: Order Comment: Speci men Type: BLOOD SPECIMENOrdering Facility: [facility] Address: [place] [address] Result Comment: The [place] Diabetes Association (ADA) provides guidance for cutoff values for fasting glucose and random glucose. The ADA defines fasting as no caloric intake for at least 8 hours. Fasting plasma glucose results between 100 to 125 mg/dL indicate increased risk for diabetes (prediabetes).Fasting plasma glucose results greater than or equal to 126 mg/dL meet the criteria for diagnosis of diabetes. In the absence of unequivocal hyperglycemia, results should be confirmed by repeat testing. In a patient with classic symptoms of hyperglycemia or hyperglycemic crisis, random plasma glucose results greater than or equal to 200 mg/dL meet the criteria for diagnosis of diabetes.Reference: Standards of Medical Care in Diabetes 2016, [place] [employer]. Diabetes Care. 2016.39(Suppl 1). Performed By: #### 2 777-1, , ####[facility] LABORATORYCLIA [id number] [place] [address] [place] Potassium [Moles/Vol] 4.2 mmol/L Normal 3.7-5.1 [facility] Comment on above: Order Comment: Speci men Type: BLOOD SPECIMENOrdering Facility: [facility] Address: [address] [place] [address] Performed By: #### 2 777-1, , ####[facility] LABORATORYCLIA [id number] [place] [address] [place] Protein [Mass/Vol] 6.2 g/dL Low 6.3-8.0 [facility] Comment on above: Order Comment: Speci men Type: BLOOD SPECIMENOrdering Facility: [facility] Address: [address] [place] [address] Performed By: #### 2 777-1, , ####[facility] LABORATORYCLIA [id number] [place] [address] [place] Sodium [Moles/Vol] 137 mmol/L Normal 136-144 [facility] Comment on above: Order Comment: Speci men Type: BLOOD SPECIMENOrdering Facility: [facility] Address: [address] [place], [place] [address] [id number] Performed By: #### 2 777-1, , ####[facility] LABORATORYCLIA [id number] [place] [address] [place] Urea nitrogen [Mass/Vol] 24 mg/dL Normal 9-24 [facility] Comment on above: Order Comment: Speci men Type: BLOOD SPECIMENOrdering Facility: [facility] Address: [place] [address] Performed By: #### 2 777-1, , ####[facility] LABORATORYCLIA [id number] [place] [id number] [place] Magnesium SerPl-ncon 08-16 Magnesium [Mass/Vol] 1.8 mg/dL Normal 1.7-2.3 [facility] Comment on above: Order Comment: Speci men Type: BLOOD SPECIMENOrdering Facility: [facility] Address: [place] [address] Performed By: #### 2 777-1, , ####[facility] LABORATORYCLIA [id number] [place] [id number] [place] Phosphate SerPl-mCncon 08-16 Phosphate [Mass/Vol] 2.6 mg/dL Low 2.7-4.8 [facility] Comment on above: Order Comment: Speci men Type: BLOOD SPECIMENOrdering Facility: [facility] Address: [address] [place] [place] [id number] Performed By: #### 2 777-1, , ####[facility] LABORATORYCLIA [id number] [place] [id number] [place] ALLIED HEALTHon 08-15-2023 ALLIED HEALTH Normal [facility] ALLIED HEALTH Normal [facility] Basic metabolic 2000 panelon 08-15-2023 Anion gap [Moles/Vol] 10 mmol/L Normal 9-18 [facility] Comment on above: Order Comment: Speci men Type: BLOOD SPECIMENOrdering Facility: [facility] Address: [address] [place] [address] Performed By: #### 2 4321-2 ####[facility] LABORATORYCLIA [id number] [place] [id number] [place] Calcium [Mass/Vol] 8.8 mg/dL Normal 8.5-10.2 [facility] Comment on above: Order Comment: Speci men Type: BLOOD SPECIMENOrdering Facility: [facility] Address: [address] [place] [address] Performed By: #### 2 4321-2 ####[facility] LABORATORYCLIA [id number] [place] [id number] [place] Chloride [Moles/Vol] 101 mmol/L Normal 97-105 [facility] Comment on above: Order Comment: Speci men Type: BLOOD SPECIMENOrdering Facility: [facility] Address: [address] [place] [address] Performed By: #### 2 4321-2 ####[facility] LABORATORYCLIA [id number] [place] [id number] [place] CO2 [Moles/Vol] 26 mmol/L Normal 22-30 [facility] Comment on above: Order Comment: Speci men Type: BLOOD SPECIMENOrdering Facility: [facility] Address: [address] [place] [address] Performed By: #### 2 4321-2 ####[facility] LABORATORYCLIA [id number] [place] [id number] [place] Creatinine [Mass/Vol] 1.08 mg/dL Normal 0.73-1.22 [facility] Comment on above: Order Comment: Speci men Type: BLOOD SPECIMENOrdering Facility: [facility] Address: [address] [place] [address] Performed By: #### 2 4321-2 ####[facility] LABORATORYCLIA [id number] [place] [id number] [place] Creatinine and Glomerular filtration rate.predicted panel (S/P/Bld) 75 mL/min/1.73m??? Normal >=60 [facility] Comment on above: Order Comment: Speci men Type: BLOOD SPECIMENOrdering Facility: [facility] Address: [address] [place] [address] Result Comment: Bailey mated Glomerular Filtration Rate (eGFR) is calculated using the 2020 CKD-EPI creatinine equation. This equation utilizes serum creatinine, sex, and age as parameters. The creatinine assay has traceable calibration to isotope dilution-mass spectrometry. Refer to KDIGO guidelines for clinical interpretation. In patients with unstable renal function, e.g. those with acute kidney injury, the eGFR may not accurately reflect actual GFR. Performed By: #### 2 4321-2 ####[facility] LABORATORYCLIA [id number] [place] [address] [place] Glucose [Mass/Vol] 92 mg/dL Normal 74-99 [facility] Comment on above: Order Comment: Arben suarez Type: BLOOD SPECIMENOrdering Facility: [facility] Address: [address] [place] [address] Result Comment: The [place] Diabetes [employer] (ADA) provides guidance for cutoff values for fasting glucose and random glucose. The ADA defines fasting as no caloric intake for at least 8 hours. Fasting plasma glucose results between 100 to 125 mg/dL indicate increased risk for diabetes (prediabetes).Fasting plasma glucose results greater than or equal to 126 mg/dL meet the criteria for diagnosis of diabetes. In the absence of unequivocal hyperglycemia, results should be confirmed by repeat testing. In a patient with classic symptoms of hyperglycemia or hyperglycemic crisis, random plasma glucose results greater than or equal to 200 mg/dL meet the criteria for diagnosis of diabetes.Reference: Standards of Medical Care in Diabetes 2016, [place] [employer] Association. Diabetes Care. 2016.39(Suppl 1). Performed By: #### 2 4321-2 ####[facility] LABORATORYCLIA [id number] [place] [address] [place] Potassium [Moles/Vol] 4.6 mmol/L Normal 3.7-5.1 [facility] Comment on above: Order Comment: Arben suarez Type: BLOOD SPECIMENOrdering Facility: [facility] Address: [address] [place] [address] Performed By: #### 2 4321-2 ####[facility] LABORATORYCLIA [id number] [place] [address] [place] Sodium [Moles/Vol] 137 mmol/L Normal 136-144 [facility] Comment on above: Order Comment: Speci men Type: BLOOD SPECIMENOrdering Facility: [facility] Address: [place] [address] Performed By: #### 2 4321-2 ####[facility] LABORATORYCLIA [id number] [place] [id number] [place] Urea nitrogen [Mass/Vol] 28 mg/dL High 9-24 [facility] Comment on above: Order Comment: Speci men Type: BLOOD SPECIMENOrdering Facility: [facility] Address: [place] [address] Performed By: #### 2 4321-2 ####[facility] LABORATORYCLIA [id number] [address] [place] CASE MANAGEMon 08-15-2023 CASE MANAGEM Normal [facility] CASE MANAGEM Normal [facility] CONSULT PROGon 08-15-2023 CONSULT PROG Normal [facility] Comprehensive metabolic 2000 panelon 08-15-2023 Albumin [Mass/Vol] 3.0 g/dL Low 3.9-4.9 [facility] Comment on above: Order Comment: Speci men Type: BLOOD SPECIMENOrdering Facility: [facility] Address: [place] [address] Performed By: #### 1 9123-9, 47120-6, 2777-1 ####[facility] LABORATORYCLIA [id number] [place] [id number] [place] ALP [Catalytic activity/Vol] 123 U/L High 38-113 [facility] Comment on above: Order Comment: Speci men Type: BLOOD SPECIMENOrdering Facility: [facility] Address: [place] [address] Performed By: #### 1 9123-9, 29133-1, 2777-1 ####[facility] LABORATORYCLIA [id number] [place] [id number] [place] ALT [Catalytic activity/Vol] 24 U/L Normal 10-54 [facility] Comment on above: Order Comment: Speci men Type: BLOOD SPECIMENOrdering Facility: [facility] Address: [address] [place] [address] Performed By: #### 1 9123-9, 81278-6, 2776- ####[facility] LABORATORYCLIA [id number] [place] [address] [place] Anion gap [Moles/Vol] 8 mmol/L Low 9-18 [facility] Comment on above: Order Comment: Speci men Type: BLOOD SPECIMENOrdering Facility: [facility] Address: [address] [place] [address] Performed By: #### 1 9123-9, 41504-5, 2776- ####[facility] LABORATORYCLIA [id number] [place] [id number] [place] AST [Catalytic activity/Vol] 26 U/L Normal 14-40 [facility] Comment on above: Order Comment: Speci men Type: BLOOD SPECIMENOrdering Facility: [facility] Address: [address] [place] [address] Performed By: #### 1 9123-9, 88019-1, 2776- ####[facility] LABORATORYCLIA [id number] [place] [id number] [place] Bilirubin [Mass/Vol] 0.9 mg/dL Normal 0.2-1.3 [facility] Comment on above: Order Comment: Speci men Type: BLOOD SPECIMENOrdering Facility: [facility] Address: [address] [place] [address] Performed By: #### 1 9123-9, 31194-3, 2776- ####[facility] LABORATORYCLIA [id number] [place] [address] [place] Calcium [Mass/Vol] 8.9 mg/dL Normal 8.5-10.2 [facility] Comment on above: Order Comment: Speci men Type: BLOOD SPECIMENOrdering Facility: [facility] Address: [address] [place] [address] Performed By: #### 1 9123-9, 03088-7, 2776- ####[facility] LABORATORYCLIA [id number] [place] [address] [place] Chloride [Moles/Vol] 103 mmol/L Normal 97-105 [facility] Comment on above: Order Comment: Speci men Type: BLOOD SPECIMENOrdering Facility: [facility] Address: [address] [place] [address] Performed By: #### 1 9123-9, 33355-0, 2777-1 ####[facility] LABORATORYCLIA [id number] [place] [id number] [place] CO2 [Moles/Vol] 28 mmol/L Normal 22-30 [facility] Comment on above: Order Comment: Speci men Type: BLOOD SPECIMENOrdering Facility: [facility] Address: [address] [place] [address] Performed By: #### 1 9123-9, 57059-6, 2777-1 ####[facility] LABORATORYCLIA [id number] [place] [id number] [place] Creatinine [Mass/Vol] 1.01 mg/dL Normal 0.73-1.22 [facility] Comment on above: Order Comment: Speci men Type: BLOOD SPECIMENOrdering Facility: [facility] Address: [address] [place] [address] Performed By: #### 1 9123-9, 41382-8, 2777-1 ####[facility] LABORATORYCLIA [id number] [place] [id number] [place] Creatinine and Glomerular filtration rate.predicted panel (S/P/Bld) 81 mL/min/1.73m??? Normal >=60 [facility] Comment on above: Order Comment: Speci men Type: BLOOD SPECIMENOrdering Facility: [facility] Address: [address] [place] [address] Result Comment: Bailey mated Glomerular Filtration Rate (eGFR) is calculated using the 2020 CKD-EPI creatinine equation. This equation utilizes serum creatinine, sex, and age as parameters. The creatinine assay has traceable calibration to isotope dilution-mass spectrometry. Refer to KDIGO guidelines for clinical interpretation. In patients with unstable renal function, e.g. those with acute kidney injury, the eGFR may not accurately reflect actual GFR. Performed By: #### 1 9123-9, 96106-2, 27702-22 ####[facility] LABORATORYCLIA [id number] [place] [address] [place] Glucose [Mass/Vol] 91 mg/dL Normal 74-99 [facility] Comment on above: Order Comment: Arben suarez Type: BLOOD SPECIMENOrdering Facility: [facility] Address: [address] [place] [address] Result Comment: The [place] Diabetes Association (ADA) provides guidance for cutoff values for fasting glucose and random glucose. The ADA defines fasting as no caloric intake for at least 8 hours. Fasting plasma glucose results between 100 to 125 mg/dL indicate increased risk for diabetes (prediabetes).Fasting plasma glucose results greater than or equal to 126 mg/dL meet the criteria for diagnosis of diabetes. In the absence of unequivocal hyperglycemia, results should be confirmed by repeat testing. In a patient with classic symptoms of hyperglycemia or hyperglycemic crisis, random plasma glucose results greater than or equal to 200 mg/dL meet the criteria for diagnosis of diabetes.Reference: Standards of Medical Care in Diabetes 2016, [place] [employer]. Diabetes Care. 2016.39(Suppl 1). Performed By: #### 1 9123-9, 79817-2, 2776-08 ####[facility] LABORATORYCLIA [id number] [place] [id number] [place] Potassium [Moles/Vol] 5.3 mmol/L High 3.7-5.1 [facility] Comment on above: Order Comment: Arben suarez Type: BLOOD SPECIMENOrdering Facility: [facility] Address: [address] [place] [address] Performed By: #### 1 9123-9, 90855-2, 27702-22 ####[facility] LABORATORYCLIA [id number] [place] [id number] [place] Protein [Mass/Vol] 6.1 g/dL Low 6.3-8.0 [facility] Comment on above: Order Comment: Arben suarez Type: BLOOD SPECIMENOrdering Facility: [facility] Address: [address] [place] [address] Performed By: #### 1 9123-9, 43089-4, 2777-1 ####[facility] LABORATORYCLIA [id number] [place] [address] [place] Sodium [Moles/Vol] 139 mmol/L Normal 136-144 [facility] Comment on above: Order Comment: Speci men Type: BLOOD SPECIMENOrdering Facility: [facility] Address: [place] [address] Performed By: #### 1 9123-9, 32464-6, 2777- ####[facility] LABORATORYCLIA [id number] [place] [id number] [place] Urea nitrogen [Mass/Vol] 30 mg/dL High 9-24 [facility] Comment on above: Order Comment: Speci men Type: BLOOD SPECIMENOrdering Facility: [facility] Address: [place] [address] Performed By: #### 1 9123-9, 00454-0, 2777- ####[facility] LABORATORYCLIA [id number] [place] [id number] [place] [facility] Magnesium [Mass/Vol] 1.9 mg/dL Normal 1.7-2.3 [facility] Comment on above: Order Comment: Speci men Type: BLOOD SPECIMENOrdering Facility: [facility] Address: [address] [place] [id number] Performed By: #### 1 9123-9, 04962-6, 2777 ####[facility] LABORATORYCLIA [id number] [place] [id number] [place] NURSING PROGon 08-15-2023 NURSING PROG Normal [facility] NUTRITIONon 08-15-2023 NUTRITION Normal [facility] Phosphate SerPl-mCncon 08-15 Phosphate [Mass/Vol] 2.5 mg/dL Low 2.7-4.8 [facility] Comment on above: Order Comment: Speci men Type: BLOOD SPECIMENOrdering Facility: [facility] Address: [place] [address] Performed By: #### 1 9123-9, 49920-4, 277- ####[facility] LABORATORYCLIA [id number] [place] [address] [place] XR ABDOMEN 1V SUPINEon 08-15 XR ABDOMEN 1V SUPINE Normal [facility] ANES POSTPROC EVALon 023 ANES POSTPROC EVAL Normal [facility] ANES PRE-OPon 08-14-2023 ANES PRE-OP Normal [facility] CASE MANAGEMon 08-14-2023 CASE MANAGEM Normal [facility] CNCOon 08-14-2023 CNCO Letter Text Normal [facility] metabolic 2000 panelon 08-14-2023 Albumin [Mass/Vol] 3.2 g/dL Low 3.9-4.9 [facility] Comment on above: Order Comment: Speci men Type: BLOOD SPECIMENOrdering Facility: [facility] Address: [address] [place] [address] Performed By: #### 2 4323-8, , 2776-08 ####[facility] LABORATORYCLIA [id number] [place] [id number] [place] ALP [Catalytic activity/Vol] 122 U/L High 38-113 [facility] Comment on above: Order Comment: Speci men Type: BLOOD SPECIMENOrdering Facility: [facility] Address: [address] [place] [address] Performed By: #### 2 4323-8, , 2776-08 ####[facility] LABORATORYCLIA [id number] [place] [id number] [place] ALT [Catalytic activity/Vol] 19 U/L Normal 10-54 [facility] Comment on above: Order Comment: Speci men Type: BLOOD SPECIMENOrdering Facility: [facility] Address: [address] [place] [address] Performed By: #### 2 4323-8, , 2776-08 ####[facility] LABORATORYCLIA [id number] [place] [id number] [place] Anion gap [Moles/Vol] 13 mmol/L Normal 9-18 [facility] Comment on above: Order Comment: Speci men Type: BLOOD SPECIMENOrdering Facility: [facility] Address: [address] [place] [address] Performed By: #### 2 4323-8, , 2776-08 ####[facility] LABORATORYCLIA [id number] [place] [address] [place] AST [Catalytic activity/Vol] 26 U/L Normal 14-40 [facility] Comment on above: Order Comment: Speci men Type: BLOOD SPECIMENOrdering Facility: [facility] Address: [address] [place] [address] Performed By: #### 2 4323-8, , 2776-08 ####[facility] LABORATORYCLIA [id number] [place] [id number] [place] Bilirubin [Mass/Vol] 1.0 mg/dL Normal 0.2-1.3 [facility] Comment on above: Order Comment: Speci men Type: BLOOD SPECIMENOrdering Facility: [facility] Address: [address] [place] [address] Performed By: #### 2 4323-8, , 2776-08 ####[facility] LABORATORYCLIA [id number] [place] [id number] [place] Calcium [Mass/Vol] 9.0 mg/dL Normal 8.5-10.2 [facility] Comment on above: Order Comment: Speci men Type: BLOOD SPECIMENOrdering Facility: [facility] Address: [address] [place] [address] Performed By: #### 2 4323-8, , 2776-08 ####[facility] LABORATORYCLIA [id number] [place] [id number] [place] Chloride [Moles/Vol] 100 mmol/L Normal 97-105 [facility] Comment on above: Order Comment: Speci men Type: BLOOD SPECIMENOrdering Facility: [facility] Address: [address] [place] [address] Performed By: #### 2 4323-8, , 2776-08 ####[facility] LABORATORYCLIA [id number] [place] [address] [place] CO2 [Moles/Vol] 26 mmol/L Normal 22-30 [facility] Comment on above: Order Comment: Speci men Type: BLOOD SPECIMENOrdering Facility: [facility] Address: [address] [place] [address] Performed By: #### 2 4323-8, , 2776-08 ####[facility] LABORATORYCLIA [id number] [place] [id number] [place] Creatinine [Mass/Vol] 1.12 mg/dL Normal 0.73-1.22 [facility] Comment on above: Order Comment: Speci men Type: BLOOD SPECIMENOrdering Facility: [facility] Address: [address] [place] [address] Performed By: #### 2 43238, , 2776-08 ####[facility] LABORATORYCLIA [id number] [place] [id number] [place] Creatinine and Glomerular filtration rate.predicted panel (S/P/Bld) 72 mL/min/1.73m??? Normal >=60 [facility] Comment on above: Order Comment: Speci men Type: BLOOD SPECIMENOrdering Facility: [facility] Address: [address] [place] [address] Result Comment: Bailey mated Glomerular Filtration Rate (eGFR) is calculated using the 2020 CKD-EPI creatinine equation. This equation utilizes serum creatinine, sex, and age as parameters. The creatinine assay has traceable calibration to isotope dilution-mass spectrometry. Refer to KDIGO guidelines for clinical interpretation. In patients with unstable renal function, e.g. those with acute kidney injury, the eGFR may not accurately reflect actual GFR. Performed By: #### 2 4323-8, , 2776-08 ####[facility] LABORATORYCLIA [id number] [place] [address] [place] Glucose [Mass/Vol] 127 mg/dL High 74-99 [facility] Comment on above: Order Comment: Speci men Type: BLOOD SPECIMENOrdering Facility: [facility] Address: [place] [address] Result Comment: The [place] Diabetes Association (ADA) provides guidance for cutoff values for fasting glucose and random glucose. The ADA defines fasting as no caloric intake for at least 8 hours. Fasting plasma glucose results between 100 to 125 mg/dL indicate increased risk for diabetes (prediabetes).Fasting plasma glucose results greater than or equal to 126 mg/dL meet the criteria for diagnosis of diabetes. In the absence of unequivocal hyperglycemia, results should be confirmed by repeat testing. In a patient with classic symptoms of hyperglycemia or hyperglycemic crisis, random plasma glucose results greater than or equal to 200 mg/dL meet the criteria for diagnosis of diabetes.Reference: Standards of Medical Care in Diabetes 2016, [place] [employer]. Diabetes Care. 2016.39(Suppl 1). Performed By: #### 2 4323-8, , 2776-08 ####[facility] LABORATORYCLIA [id number] [place] [address] [place] Potassium [Moles/Vol] 4.1 mmol/L Normal 3.7-5.1 [facility] Comment on above: Order Comment: Demarcusi daniela Type: BLOOD SPECIMENOrdering Facility: [facility] Address: [address] [place] [id number] Performed By: #### 2 4323-8, , 2776-08 ####[facility] LABORATORYCLIA [id number] [place] [id number] [place] Protein [Mass/Vol] 6.6 g/dL Normal 6.3-8.0 [facility] Comment on above: Order Comment: Speci men Type: BLOOD SPECIMENOrdering Facility: [facility] Address: [address] [place], [place] [address] Performed By: #### 2 4323-8, , 2776-08 ####[facility] LABORATORYCLIA [id number] [place] [address] [place] Sodium [Moles/Vol] 139 mmol/L Normal 136-144 [facility] Comment on above: Order Comment: Speci men Type: BLOOD SPECIMENOrdering Facility: [facility] Address: [address] [place] [id number] Performed By: #### 2 4323-8, , 2776-08 ####[facility] LABORATORYCLIA [id number] [place] [id number] [place] Urea nitrogen [Mass/Vol] 34 mg/dL High 9-24 [facility] Comment on above: Order Comment: Speci men Type: BLOOD SPECIMENOrdering Facility: [facility] Address: [address] [place] [id number] Performed By: #### 2 4323-8, , 2776-08 ####[facility] LABORATORYCLIA [id number] [place] [id number] [place] HISTORY PHYSICALon 3 HISTORY PHYSICAL Normal [facility] Magnesium SerPl-ncon 08-14 Magnesium [Mass/Vol] 2.0 mg/dL Normal 1.7-2.3 [facility] Comment on above: Order Comment: Speci men Type: BLOOD SPECIMENOrdering Facility: [facility] Address: [address] [facility] [place] [id number] Performed By: #### 2 4323-8, , 2776-08 ####[facility] LABORATORYCLIA [id number] [place] [id number] [place] NURSING PROGon 08-14-2023 NURSING PROG Normal [facility] NURSING PROG Normal [facility] NURSING PROG Normal [facility] NUTRITIONon 08-14-2023 NUTRITION Normal [facility] Phosphate SerPl-mCncon 08-14 Phosphate [Mass/Vol] 2.9 mg/dL Normal 2.7-4.8 [facility] Comment on above: Order Comment: Speci men Type: BLOOD SPECIMENOrdering Facility: [facility] Address: [address] [place] [id number] Performed By: #### 2 4323-8, , 2776-08 ####[facility] LABORATORYCLIA [id number] [place] [id number] [place] Upper GI endoscopyon 023 Upper GI endoscopy Normal [facility] XR ABDOMEN 1V SUPINEon 08-14 XR ABDOMEN 1V SUPINE Normal [facility] XR ABDOMEN 1V SUPINE Normal [facility] ALLIED HEALTHon 08-13-2023 ALLIED HEALTH Normal [facility] ANES POSTPROC EVALon 023 ANES POSTPROC EVAL Normal [facility] ANES PRE-OPon 08-13-2023 ANES PRE-OP Normal [facility] CASE MANAGEMon 08-13-2023 CASE MANAGEM Normal [facility] CNPNon 08-13-2023 CNPN Telephone ([id number]) -- AISHA JULIEN ([id number]) 1955 M Date Time Provider Department 08/13/23 [facility] [id number] During your visit today, we recorded the following information about you: Jessie Zamora RN 08/13/2023 10:25 AM Signed Call made to [employer] - patient employer to get [facility] paperwork for him. Left a with Kindra. Gave her cell number to call back and/or fax number to fax paperwork. Jessie Zamora RN 08/14/2023 9:14 AM Signed Kindra from [employer] returned call yesterday stating that she had emailed short term disability papers to the patient - they spoke on Friday. Informed me that they need a letter stating an estimated return to work date, when was the first day he was unable to work, and the reasoning. Letter to be faxed and will ask patient for the emailed paperwork. Allergies As of Date: 08/13/2023 (No Known Allergies) Date Reviewed: 08/13/2023 Reviewed by: Génesis Moore, LUCILLE - Fully Assessed Reason for Visit: FMLA Paperwork [4185] Prescriptions as of 08/14/2023 - PEPTAMEN 1.5 0.068 gram- 1.5 kcal/mL Tube Feeding Formula Type: Peptamen 1.5 Goal Rate (mL/hr x hours): 60 ml hr x 24 = 1440 ml = 2160 kcal and 98 gm protein Water Flush Volume (mL x frequency: 150 ml q 4 Recommended Enteral Access: PEG with Jejunal Extension - potassium (POTASSIMIN ORAL) Take by mouth. - dilTIAZem CD (CARDIZEM CD, CARTIA XT) 180 mg 24 hr capsule Take 240 mg by mouth every morning. - metoprolol succinate ER (TOPROL XL) 100 mg Take 50 mg by mouth one time only. - tamsulosin (FLOMAX) 0.4 mg Take 0.4 mg by mouth one time only. - losartan (COZAAR) 100 mg tablet Take 100 mg by mouth every morning. - finasteride (PROSCAR) 5 mg tablet Take 5 mg by mouth every other day. - pantoprazole DR (PROTONIX) 40 mg tablet Take 1 tablet by mouth every afternoon. - ondansetron (ZOFRAN) 4 mg tablet TAKE 1 TABLET BY MOUTH EVERY 8 HOURS NEEDED FOR NAUSEA OR FOR VOMITING FOR UP TO 7 DAYS Facility-Administered Medications as of 08/14/2023 - Parenteral Nutrition - Adult - metoprolol tartrate (short acting) 50 mg tab(s) (LOPRESSOR) - pantoprazole 40 mg injection (PROTONIX) - dextrose 5% in NaCl 0.45% iv infusion - phenol 1 [place] (CHLORASEPTIC) - NaCl 0.9% iv flush bag - finasteride 5 mg tab(s) (PROSCAR) - heparin 5,000 Units injection - ondansetron (PF) 4 mg injection (ZOFRAN) - HYDROmorphone 0.2 mg injection (DILAUDID) - acetaminophen 650 mg CUP (TYLENOL) - tamsulosin 0.4 mg cap(s) (FLOMAX) Problem List As Of Date 08/13/2023 Noted Resolved Failure to thrive in adult [R62.7] 08/07/2023 Severe protein-calorie malnutrition (HCC) [E43] 08/08/2023 Pre-op evaluation [Z01.818] 08/08/2023 Primary hypertension [I10] 08/08/2023 Therapeutic drug monitoring [Z51.81] 08/08/2023 Feeding difficulties [R63.30] 08/08/2023 On peripheral parenteral nutrition (ppn) [Z78.9]08/08/2023 Encounter Status:Closed by JESSIE ZAMORA on 08/14/23 Normal [facility] CYTOLOGY NON-GYNon 3 ADEQUACY INTERPRETATION Normal [facility] Comment on above: Order Comment: Speci men Type: SPECIMEN OBTAINED BY ASPIRATIONOrdering Facility: [facility] Address: [address] [place] [address] Result Comment: A: # 1 Lymphoid sampleB: #1, 2 Lesional cells present. Monotonous cells could be low-grade neuroendocrine tumor.Dr. Dsouza / Richard Farrell letter in the above intra-procedural assessment refers to a unique site. The specific site is indicated in the final diagnosis portion of the report. Each number in this assessment references a discrete evaluation episode.Intra-procedural assessment performed at [facility], [address] [place] [address] Performed By: #### C YTONON ####[facility] LABORATORYCLIA [id number] [address] [place] CASE REPORT Normal [facility] Comment on above: Order Comment: Speci men Type: SPECIMEN OBTAINED BY ASPIRATIONOrdering Facility: [facility] Address: [address] [place] [address] Result Comment: [facility] Cytology Report Case: [id number] Provider: Stephanie Avery MD Collected: 08/13/2023 11:22 AMOrdering Location: [facility] Received: 08/13/2023 12:00 PM Endoscopy - ENDOPathologist: Darrius Dsouza MDSpecimens: A) - LYMPH NODE FINE NEEDLE ASPIRATION, PORTAL LYMPH NODE B) - PANCREAS FINE NEEDLE ASPIRATION, UNCINATE PROCESS Performed By: #### C YTONON ####[facility] LABORATORYCLIA [id number] [place] [address] [place] CLINICAL HISTORY Weight loss Normal [facility] Comment on above: Order Comment: Speci men Type: SPECIMEN OBTAINED BY ASPIRATIONOrdering Facility: [facility] Address: [address] [place] [address] Result Comment: Lupillo kenny outlet obstructionTachycardiaHypomagnesemiaAKI Performed By: #### C YTONON ####[facility] LABORATORYCLIA [id number] [address] DIAGNOSIS COMMENT Normal [facility] Comment on above: Order Comment: Speci men Type: SPECIMEN OBTAINED BY ASPIRATIONOrdering Facility: [facility] Address: [address] [place] [address] Result Comment: A. T he diagnostic neoplastic cells are predominantly found on the ThinPrep slide. The discrepancy between the RIVERA diagnosis of lymphoid sample and the final diagnosis was reported by secure staff message to Dr. Avery on 08/14/2023 at 1101.B. This part of the case was interpreted in conjunction with the related surgical pathology case [id number] with diagnostic concurrence. 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, in a background of a lymphoid sample (see comment).B - PANCREAS FINE NEEDLE ASPIRATION - UNCINATE PROCESS Neoplastic cells derived from pancreatic low-grade neuroendocrine tumor (see comment).The following cell blocks were associated with this case:A1 Cell Block, Alcohol FixedB1 Cell Block, Alcohol Fixed Performed By: #### C YTONON ####[facility] LABORATORYCLIA [id number] [place] [id number] [facility] FINAL PERFORMING LAB Normal [facility] Comment on above: Order Comment: Speci men Type: SPECIMEN OBTAINED BY ASPIRATIONOrdering Facility: [facility] Address: [address] [place] [address] Result Comment: Tech nical component, sea shell gatherer screening performed at [facility], [address] [place] [address] CLIA# [id number] interpretation performed at [facility], [address] [place] [address] CLIA# [id number] Director: Darrius Dsouza M.D. Performed By: #### C YTLADAN ####[facility] LABORATORYCLIA [id number] [place] [id number] [place] GROSS DESCRIPTION Normal [facility] Comment on above: Order Comment: Speci men Type: SPECIMEN OBTAINED BY ASPIRATIONOrdering Facility: [facility] Address: [address] [place] [address] Result Comment: A. L YMPH NODE FINE NEEDLE [id number] cc clear pink CytoLyt with scant particles. ThinPrep and Cell Block prepared and 2 smears (1 air dried and 1 fixed).B. PANCREAS FINE NEEDLE [id number] cc clear colorless CytoLyt with scant particles. ThinPrep and Cell Block prepared and 4 smears (2 air dried and 2 fixed). Performed By: #### C ALIA ####[facility] LABORATORYCLIA [id number] [place] [id number] [place] Comprehensive metabolic 2000 panelon 08-13-2023 Albumin [Mass/Vol] 3.8 g/dL Low 3.9-4.9 [facility] Comment on above: Order Comment: Speci men Type: BLOOD SPECIMENOrdering Facility: [facility] Address: [address] [place] [address] Performed By: #### 1 9123-9, 09967-2, 2777- ####[facility] LABORATORYCLIA [id number] [place] [address] [place] ALP [Catalytic activity/Vol] 128 U/L High 38-113 [facility] Comment on above: Order Comment: Speci men Type: BLOOD SPECIMENOrdering Facility: [facility] Address: [address] [place] [address] Performed By: #### 1 9123-9, 94596-7, 2777- ####[facility] LABORATORYCLIA [id number] [place] [id number] [place] ALT [Catalytic activity/Vol] 19 U/L Normal 10-54 [facility] Comment on above: Order Comment: Speci men Type: BLOOD SPECIMENOrdering Facility: [facility] Address: [address] [facility] [place] [address] Performed By: #### 1 9123-9, 53411-6, 2776- ####[facility] LABORATORYCLIA [id number] [place] [address] [place] Anion gap [Moles/Vol] 12 mmol/L Normal 9-18 [facility] Comment on above: Order Comment: Speci men Type: BLOOD SPECIMENOrdering Facility: [facility] Address: [address] [place] [address] Performed By: #### 1 9123-9, 88830-8, 2776- ####[facility] LABORATORYCLIA [id number] [place] [address] [place] AST [Catalytic activity/Vol] 22 U/L Normal 14-40 [facility] Comment on above: Order Comment: Speci men Type: BLOOD SPECIMENOrdering Facility: [facility] Address: [address] [place] [address] Performed By: #### 1 9123-9, 66815-0, 2776- ####[facility] LABORATORYCLIA [id number] [place] [address] [place] Bilirubin [Mass/Vol] 1.0 mg/dL Normal 0.2-1.3 [facility] Comment on above: Order Comment: Speci men Type: BLOOD SPECIMENOrdering Facility: [facility] Address: [address] [place] [address] Performed By: #### 1 9123-9, 72482-3, 2776- ####[facility] LABORATORYCLIA [id number] [place] [address] [place] Calcium [Mass/Vol] 9.5 mg/dL Normal 8.5-10.2 [facility] Comment on above: Order Comment: Speci men Type: BLOOD SPECIMENOrdering Facility: [facility] Address: [address] [place] [address] Performed By: #### 1 9123-9, 49291-1, 2777-1 ####[facility] LABORATORYCLIA [id number] [place] [address] [place] Chloride [Moles/Vol] 95 mmol/L Low 97-105 [facility] Comment on above: Order Comment: Speci men Type: BLOOD SPECIMENOrdering Facility: [facility] Address: [address] [place] [address] Performed By: #### 1 9123-9, 71490-4, 2777- ####[facility] LABORATORYCLIA [id number] [place] [address] [place] CO2 [Moles/Vol] 29 mmol/L Normal 22-30 [facility] Comment on above: Order Comment: Speci men Type: BLOOD SPECIMENOrdering Facility: [facility] Address: [address] [place] [address] Performed By: #### 1 9123-9, 75846-7, 2777- ####[facility] LABORATORYCLIA [id number] [place] [address] [place] Creatinine [Mass/Vol] 1.19 mg/dL Normal 0.73-1.22 [facility] Comment on above: Order Comment: Speci men Type: BLOOD SPECIMENOrdering Facility: [facility] Address: [address] [place] [address] Performed By: #### 1 9123-9, 48398-1, 2777- ####[facility] LABORATORYCLIA [id number] [place] [address] [place] Creatinine and Glomerular filtration rate.predicted panel (S/P/Bld) 67 mL/min/1.73m??? Normal >=60 [facility] Comment on above: Order Comment: Speci men Type: BLOOD SPECIMENOrdering Facility: [facility] Address: [address] [place] [address] Result Comment: Bailey mated Glomerular Filtration Rate (eGFR) is calculated using the 2020 CKD-EPI creatinine equation. This equation utilizes serum creatinine, sex, and age as parameters. The creatinine assay has traceable calibration to isotope dilution-mass spectrometry. Refer to KDIGO guidelines for clinical interpretation. In patients with unstable renal function, e.g. those with acute kidney injury, the eGFR may not accurately reflect actual GFR. Performed By: #### 1 9123-9, 63464-3, 2776- ####[facility] LABORATORYCLIA [id number] [place] [address] [place] Glucose [Mass/Vol] 124 mg/dL High 74-99 [facility] Comment on above: Order Comment: Arben suarez Type: BLOOD SPECIMENOrdering Facility: [facility] Address: [address] [place] [address] Result Comment: The [place] Diabetes [employer] (ADA) provides guidance for cutoff values for fasting glucose and random glucose. The ADA defines fasting as no caloric intake for at least 8 hours. Fasting plasma glucose results between 100 to 125 mg/dL indicate increased risk for diabetes (prediabetes).Fasting plasma glucose results greater than or equal to 126 mg/dL meet the criteria for diagnosis of diabetes. In the absence of unequivocal hyperglycemia, results should be confirmed by repeat testing. In a patient with classic symptoms of hyperglycemia or hyperglycemic crisis, random plasma glucose results greater than or equal to 200 mg/dL meet the criteria for diagnosis of diabetes.Reference: Standards of Medical Care in Diabetes 2016, [place] [employer] Association. Diabetes Care. 2016.39(Suppl 1). Performed By: #### 1 9123-9, 22065-8, 2776-08 ####[facility] LABORATORYCLIA [id number] [place] [address] [place] Potassium [Moles/Vol] 3.5 mmol/L Low 3.7-5.1 [facility] Comment on above: Order Comment: Arben suarez Type: BLOOD SPECIMENOrdering Facility: [facility] Address: [address] [place] [address] Performed By: #### 1 9123-9, 26955-8, 27702-22 ####[facility] LABORATORYCLIA [id number] [place] [address] [place] Protein [Mass/Vol] 7.6 g/dL Normal 6.3-8.0 [facility] Comment on above: Order Comment: Arbne suarez Type: BLOOD SPECIMENOrdering Facility: [facility] Address: [address] [place] [id number] Performed By: #### 1 9123-9, 10801-8, 2777-1 ####[facility] LABORATORYCLIA [id number] [place] [address] [place] Sodium [Moles/Vol] 136 mmol/L Normal 136-144 [facility] Comment on above: Order Comment: Speci men Type: BLOOD SPECIMENOrdering Facility: [facility] Address: [address] [facility] [place] [address] Performed By: #### 1 9123-9, 74924-1, 2777- ####[facility] LABORATORYCLIA [id number] [place] [id number] [place] Urea nitrogen [Mass/Vol] 37 mg/dL High 05-18 [facility] Comment on above: Order Comment: Speci men Type: BLOOD SPECIMENOrdering Facility: [facility] Address: [address] [place] [address] Performed By: #### 1 9123-9, 59589-8, 2777- ####[facility] LABORATORYCLIA [id number] [place] [id number] [place] HISTORY PHYSICALon HISTORY PHYSICAL Normal [facility] Magnesium [Mass/Vol] 2.2 mg/dL Normal 1.7-2.3 [facility] Comment on above: Order Comment: Speci men Type: BLOOD SPECIMENOrdering Facility: [facility] Address: [address] [place] [id number] Performed By: #### 1 9123-9, 59995-7, 2777- ####[facility] LABORATORYCLIA [id number] [place] [id number] [place] NURSING PROGon 08-13-2023 NURSING PROG Normal [facility] NURSING PROG Normal [facility] NURSING PROG Normal [facility] NUTRITIONon 08-13-2023 NUTRITION Normal [facility] Phosphate SerPl-mCncon 08-13 Phosphate [Mass/Vol] 3.2 mg/dL Normal 2.7-4.8 [facility] Comment on above: Order Comment: Speci men Type: BLOOD SPECIMENOrdering Facility: [facility] Address: [address] [place] [address] Performed By: #### 1 9123-9, 36045-6, 2777-1 ####[facility] LABORATORYCLIA [id number] [address] [place] SURGICAL PATHOLOGYon 023 CASE REPORT Normal [facility] Comment on above: Order Comment: Speci men Type: TISSUE SPECIMENOrdering Facility: [facility] Address: [address] [place] [address] Result Comment: Surg ical Pathology Report Case: [id number] Provider: Stephanie Avery MD Collected: 08/13/2023 11:14 AMOrdering Location: [facility] Received: 08/13/2023 01:36 PM Endoscopy - ENDOPathologist: Robby Jorgensen MD, PhDSpecimens: A) - PANCREAS BIOPSY, core needle biopsy of uncinate process to r/o neuro endocrine tumor B) - LYMPH NODE BIOPSY, core needle biopsy of portal lymph node Performed By: #### S ####[facility] LABCLIA [id number] [address] [place] DIAGNOSIS COMMENT Normal [facility] Comment on above: Order Comment: Speci men Type: TISSUE SPECIMENOrdering Facility: [facility] Address: [address] [place] [address] Result Comment: Manny romo Developed Test (LDT) Disclaimer:Performance characteristics of immunohistochemical, immunofluorescent and chromogenic in-situ hybridization tests have been determined by the performing laboratory within [facility]???s [facility] [place] ([facility], [facility], [facility], [facility], [facility], [facility], or [facility]) in a manner consistent with CLIA requirements. One or more of these tests have not been cleared or approved by the FDA. RT-PLMI is regulated under CLIA as qualified to perform high-complexity testing. These tests are used for clinical purposes. They should not be regarded as investigational or for research. Positive and negative controls stain appropriately. Performed By: #### S ####[facility] LABCLIA [id number] [address] FINAL DIAGNOSIS Normal [facility] Comment on above: Order Comment: Speci men Type: TISSUE SPECIMENOrdering Facility: [facility] Address: [address] [place] [address] Result Comment: A. 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 Lymph node, biopsy:-Predominantly hemorrhage admixed with some lymphoid tissue and smooth muscle.-No evidence of neoplasm in this material. Performed By: #### S ####[facility] LABCLIA [id number] [address] OF [facility] FINAL PERFORMING LAB Normal [facility] Comment on above: Order Comment: Speci men Type: TISSUE SPECIMENOrdering Facility: [facility] Address: [address] [place] [address] Result Comment: Diag nostic interpretation performed at [facility], [address] [place] [address] CLIA# [id number] Director: Taras Treadwell M.D. Performed By: #### S ####[facility] LABCLIA [id number] [address] GROSS DESCRIPTION Normal [facility] Comment on above: Order Comment: Speci men Type: TISSUE SPECIMENOrdering Facility: [facility] Address: [address] [place] [address] Result Comment: A. P ANCREAS BIOPSYReceived in formalin are multiple segments of cylindrical tissue aggregating to 1.9 x 0.7 x 0.1 cm, vazquez-red and of a soft and friable consistency. Totally submitted in one cassette.B. LYMPH NODE BIOPSYReceived in formalin are multiple segments of cylindrical tissue aggregating to 1.1 x 0.2 x 0.1 cm, vazquez-red and of a soft and friable consistency. Totally submitted in one cassette.Gross examination performed at [facility], [address] [place] [address].AMS August 13, 2023 6:15 PM Performed By: #### S ####[facility] LABCLIA [id number] [address] OF [facility] Upper [place]on 08-13-2023 Upper [place] Normal [facility] XR ABDOMEN 1V SUPINEon 08-13 XR ABDOMEN 1V SUPINE Normal [facility] Bilirub Conj SerPl-mCncon Bilirubin.conjugated [Mass/Vol] 0.4 mg/dL High <0.2 [facility] Comment on above: Order Comment: Speci men Type: BLOOD SPECIMENOrdering Facility: [facility] Address: [address] [place] [address] Performed By: #### 1 5152-2, 18733-3, 2571-8, 55975-0 ####[facility] LABORATORYCLIA [id number] [address] [place] CASE MANAGEMon 08-12-2023 CASE MANAGEM Normal [facility] CBC panel Auto (Bld)on 08-12 Erythrocyte distribution width (RBC) [Ratio] 11.9 % Normal 11.5-15.0 [facility] Comment on above: Order Comment: Speci men Type: BLOOD SPECIMENOrdering Facility: [facility] Address: [address] [place] [address] Performed By: #### 5 8410-2 ####[facility] LABORATORYCLIA [id number] [address] [place] Hematocrit (Bld) [Volume fraction] 44.8 % Normal 39.0-51.0 [facility] Comment on above: Order Comment: Speci men Type: BLOOD SPECIMENOrdering Facility: [facility] Address: [address] [place] [address] Performed By: #### 5 8410-2 ####[facility] LABORATORYCLIA [id number] [place] [address] [place] Hemoglobin (Bld) [Mass/Vol] 14.9 g/dL Normal 13.0-17.0 [facility] Comment on above: Order Comment: Speci men Type: BLOOD SPECIMENOrdering Facility: [facility] Address: [address] [place] [address] Performed By: #### 5 8410-2 ####[facility] LABORATORYCLIA [id number] [address] [place] MCH (RBC) [Entitic mass] 29.2 pg Normal 26.0-34.0 [facility] Comment on above: Order Comment: Speci men Type: BLOOD SPECIMENOrdering Facility: [facility] Address: [address] [place] [address] Performed By: #### 5 8410-2 ####[facility] LABORATORYCLIA [id number] [address] [place] MCHC (RBC) [Mass/Vol] 33.3 g/dL Normal 30.5-36.0 [facility] Comment on above: Order Comment: Speci men Type: BLOOD SPECIMENOrdering Facility: [facility] Address: [address] [place] [address] Performed By: #### 5 8410-2 ####[facility] LABORATORYCLIA [id number] [address] [place] MCV (RBC) [Entitic vol] 87.7 fL Normal 80.0-100.0 [facility] Comment on above: Order Comment: Speci men Type: BLOOD SPECIMENOrdering Facility: [facility] Address: [address] [place] [address] Performed By: #### 5 8410-2 ####[facility] LABORATORYCLIA [id number] [address] [place] Nucleated RBC (Bld) [#/Vol] 10*3/uL Normal <0.01 [facility] Comment on above: Order Comment: Speci men Type: BLOOD SPECIMENOrdering Facility: [facility] Address: [address] [place] [address] Performed By: #### 5 8410-2 ####[facility] LABORATORYCLIA [id number] [place] [id number] [place] Platelet mean volume (Bld) [Entitic vol] 11.2 fL Normal 9.0-12.7 [facility] Comment on above: Order Comment: Speci men Type: BLOOD SPECIMENOrdering Facility: [facility] Address: [address] [place] [address] Performed By: #### 5 8410-2 ####[facility] LABORATORYCLIA [id number] [place] [address] [place] Platelets (Bld) [#/Vol] 273 10*3/uL Normal 150-400 [facility] Comment on above: Order Comment: Speci men Type: BLOOD SPECIMENOrdering Facility: [facility] Address: [address] [place] [address] Performed By: #### 5 8410-2 ####[facility] LABORATORYCLIA [id number] [place] [address] [place] RBC (Bld) [#/Vol] 5.11 10*6/uL Normal 4.20-6.00 [facility] Comment on above: Order Comment: Speci men Type: BLOOD SPECIMENOrdering Facility: [facility] Address: [address] [facility] [place] [address] Performed By: #### 5 8410-2 ####[facility] LABORATORYCLIA [id number] [place] [address] [place] WBC (Bld) [#/Vol] 11.13 10*3/uL High 3.70-11.00 [facility] Comment on above: Order Comment: Speci men Type: BLOOD SPECIMENOrdering Facility: [facility] Address: [address] [facility] [place] [address] Performed By: #### 5 8410-2 ####[facility] LABORATORYCLIA [id number] [place] [address] [place] Comprehensive metabolic 2000 panelon 08-12-2023 Albumin [Mass/Vol] 3.7 g/dL Low 3.9-4.9 [facility] Comment on above: Order Comment: Speci men Type: BLOOD SPECIMENOrdering Facility: [facility] Address: [address] [place] [address] Performed By: #### 1 5152-2, 22401-8, 2570-8, 01744-6 ####[facility] LABORATORYCLIA [id number] [place] [address] [place] ALP [Catalytic activity/Vol] 124 U/L High 38-113 [facility] Comment on above: Order Comment: Speci men Type: BLOOD SPECIMENOrdering Facility: [facility] Address: [address] [place] [address] Performed By: #### 1 5152-2, 29976-1, 8, 33456-3 ####[facility] LABORATORYCLIA [id number] [place] [address] [place] ALT [Catalytic activity/Vol] 19 U/L Normal 10-54 [facility] Comment on above: Order Comment: Speci men Type: BLOOD SPECIMENOrdering Facility: [facility] Address: [address] [place] [address] Performed By: #### 1 5152-2, 72572-6, 8, 72427-5 ####[facility] LABORATORYCLIA [id number] [place] [address] [place] Anion gap [Moles/Vol] 15 mmol/L Normal 9-18 [facility] Comment on above: Order Comment: Speci men Type: BLOOD SPECIMENOrdering Facility: [facility] Address: [address] [place] [address] Performed By: #### 1 5152-2, 40288-4, 2570-8, 12066-3 ####[facility] LABORATORYCLIA [id number] [place] [address] [place] AST [Catalytic activity/Vol] 22 U/L Normal 14-40 [facility] Comment on above: Order Comment: Speci men Type: BLOOD SPECIMENOrdering Facility: [facility] Address: [address] [place] [address] Performed By: #### 1 5152-2, 05220-7, 257-8, 14574-7 ####[facility] LABORATORYCLIA [id number] [place] [address] [place] Bilirubin [Mass/Vol] 1.1 mg/dL Normal 0.2-1.3 [facility] Comment on above: Order Comment: Speci men Type: BLOOD SPECIMENOrdering Facility: [facility] Address: [address] [place] [address] Performed By: #### 1 5152-2, 65302-6, 2570-8, 56397-2 ####[facility] LABORATORYCLIA [id number] [place] [address] [place] Calcium [Mass/Vol] 9.6 mg/dL Normal 8.5-10.2 [facility] Comment on above: Order Comment: Speci men Type: BLOOD SPECIMENOrdering Facility: [facility] Address: [address] [place] [address] Performed By: #### 1 5152-2, 81380-6, 2570-8, 04450-4 ####[facility] LABORATORYCLIA [id number] [place] [address] [place] Chloride [Moles/Vol] 96 mmol/L Low 97-105 [facility] Comment on above: Order Comment: Speci men Type: BLOOD SPECIMENOrdering Facility: [facility] Address: [address] [place] [address] Performed By: #### 1 5152-2, 44578-0, 8, 13101-1 ####[facility] LABORATORYCLIA [id number] [place] [address] [place] CO2 [Moles/Vol] 26 mmol/L Normal 22-30 [facility] Comment on above: Order Comment: Speci men Type: BLOOD SPECIMENOrdering Facility: [facility] Address: [address] [place] [address] Performed By: #### 1 5152-2, 07052-3, 2570-8, 93577-3 ####[facility] LABORATORYCLIA [id number] [place] [address] [place] Creatinine [Mass/Vol] 1.28 mg/dL High 0.73-1.22 [facility] Comment on above: Order Comment: Arben suarez Type: BLOOD SPECIMENOrdering Facility: [facility] Address: [address] [place] [address] Performed By: #### 1 5152-2, 64946-9, 2570-8, 20125-6 ####[facility] LABORATORYCLIA [id number] [place] [id number] [place] Creatinine and Glomerular filtration rate.predicted panel (S/P/Bld) 61 mL/min/1.73m??? Normal >=60 [facility] Comment on above: Order Comment: Arben suarez Type: BLOOD SPECIMENOrdering Facility: [facility] Address: [address] [place] [address] Result Comment: Bailey mated Glomerular Filtration Rate (eGFR) is calculated using the 2020 CKD-EPI creatinine equation. This equation utilizes serum creatinine, sex, and age as parameters. The creatinine assay has traceable calibration to isotope dilution-mass spectrometry. Refer to KDIGO guidelines for clinical interpretation. In patients with unstable renal function, e.g. those with acute kidney injury, the eGFR may not accurately reflect actual GFR. Performed By: #### 1 5152-2, 36046-4, 2570-8, 68598-9 ####[facility]ATORYCLIA [id number] [place] [id number] [place] Glucose [Mass/Vol] 110 mg/dL High 74-99 [facility] Comment on above: Order Comment: Arben suarez Type: BLOOD SPECIMENOrdering Facility: [facility] Address: [address] [place] [address] Result Comment: The [place] Diabetes [employer] (ADA) provides guidance for cutoff values for fasting glucose and random glucose. The ADA defines fasting as no caloric intake for at least 8 hours. Fasting plasma glucose results between 100 to 125 mg/dL indicate increased risk for diabetes (prediabetes).Fasting plasma glucose results greater than or equal to 126 mg/dL meet the criteria for diagnosis of diabetes. In the absence of unequivocal hyperglycemia, results should be confirmed by repeat testing. In a patient with classic symptoms of hyperglycemia or hyperglycemic crisis, random plasma glucose results greater than or equal to 200 mg/dL meet the criteria for diagnosis of diabetes.Reference: Standards of Medical Care in Diabetes 2016, [place] [employer]. Diabetes Care. 2016.39(Suppl 1). Performed By: #### 1 5152-2, 53459-6, 2570-8, 64513-7 ####[facility] LABORATORYCLIA [id number] [place] [address] [place] Potassium [Moles/Vol] 3.7 mmol/L Normal 3.7-5.1 [facility] Comment on above: Order Comment: Speci men Type: BLOOD SPECIMENOrdering Facility: [facility] Address: [address] [place] [address] Performed By: #### 1 5152-2, 12652-5, 8, 61426-1 ####[facility] LABORATORYCLIA [id number] [place] [id number] [place] Protein [Mass/Vol] 7.8 g/dL Normal 6.3-8.0 [facility] Comment on above: Order Comment: Speci men Type: BLOOD SPECIMENOrdering Facility: [facility] Address: [address] [place] [address] Performed By: #### 1 5152-2, , 8, 49684-9 ####[facility]ATORYCLIA [id number] [place] [address] [place] Sodium [Moles/Vol] 137 mmol/L Normal 136-144 [facility] Comment on above: Order Comment: Speci men Type: BLOOD SPECIMENOrdering Facility: [facility] Address: [address] [place] [address] Performed By: #### 1 5152-2, , 2571-03, 66895-0 ####[facility] LABORATORYCLIA [id number] [place] [address] [place] Urea nitrogen [Mass/Vol] 35 mg/dL High 9-24 [facility] Comment on above: Order Comment: Speci men Type: BLOOD SPECIMENOrdering Facility: [facility] Address: [place] [address] Performed By: #### 1 5152-2, 39680-9, 8, 98868-7 ####[facility] LABORATORYCLIA [id number] [place] [address] [place] Magnesium SerPl-mCncon 08-12 Magnesium [Mass/Vol] 2.1 mg/dL Normal 1.7-2.3 [facility] Comment on above: Order Comment: Speci men Type: BLOOD SPECIMENOrdering Facility: [facility] Address: [address] [place] [address] Performed By: #### 1 5152-2, 11528-1, 2571-03, 03774-8 ####[facility] LABORATORYCLIA [id number] [place] [address] [place] NURSING PROGon 08-12-2023 NURSING PROG Normal [facility] NUTRITIONon 08-12-2023 NUTRITION Normal [facility] Phosphate SerPl-mCncon 08-12 Phosphate [Mass/Vol] 3.2 mg/dL Normal 2.7-4.8 [facility] Comment on above: Order Comment: Speci men Type: BLOOD SPECIMENOrdering Facility: [facility] Address: [address] [place] [address] Performed By: #### 2 777-1 ####[facility]ATORYCLIA [id number] [place] [address] [place] Trigl SerPl-mCncon 3 Triglyceride [Mass/Vol] 69 mg/dL Normal <150 [facility] Comment on above: Order Comment: Speci men Type: BLOOD SPECIMENOrdering Facility: [facility] Address: [address] [place] [address] Result Comment: <150 mg/dL, Normal 150-199 mg/dL, Borderline high 200-499 mg/dL, High>499 mg/dL, Very highReference:1. National Cholesterol Education Program ATP III Guideline At-A-Glance Quick Desk Reference: National Heart, Lung, and Blood [place]. National Institutes of Health. 2001: NIH Publication No. 01-3305. Performed By: #### 1 5152-2, 69869-1, 2570-8, 58245-8 ####[facility]ATORYCLIA [id number] [place] [address] [facility] Triglyceride [Mass/Vol]on FASTING TIME 0 hrs Normal [facility] Comment on above: Order Comment: Speci men Type: BLOOD SPECIMENOrdering Facility: [facility] Address: [place] [address] Performed By: #### 1 5152-2, 52900-5, 2570-8, ####[facility]ATORYCLIA [id number] [place] [id number] [place] CASE MANAGEMon 08-11-2023 CASE MANAGEM Normal [facility] CRP SerPl-mCncon 08-11-2023 CRP [Mass/Vol] 4.0 mg/dL High <0.9 [facility] Comment on above: Order Comment: Speci men Type: BLOOD SPECIMENOrdering Facility: [facility] Address: [place] [address] Performed By: #### 2 4323-8, 1987-12, 2776-08, ####[facility]ATORYCLIA [id number] [place] [id number] [place] Comprehensive metabolic 2000 panelon 08-11-2023 Albumin [Mass/Vol] 3.8 g/dL Low 3.9-4.9 [facility] Comment on above: Order Comment: Speci men Type: BLOOD SPECIMENOrdering Facility: [facility] Address: [address] [place] [id number] Performed By: #### 2 4323-8, 1987-12, 2776-08, ####[facility]ATORYCLIA [id number] [place] [id number] [place] ALP [Catalytic activity/Vol] 107 U/L Normal 38-113 [facility] Comment on above: Order Comment: Speci men Type: BLOOD SPECIMENOrdering Facility: [facility] Address: [address] [place] [address] Performed By: #### 2 4323-03, 1987-12, 2776-08, ####[facility] LABORATORYCLIA [id number] [place] [address] [place] ALT [Catalytic activity/Vol] 17 U/L Normal 10-54 [facility] Comment on above: Order Comment: Speci men Type: BLOOD SPECIMENOrdering Facility: [facility] Address: [address] [id number] Performed By: #### 2 4323-03, 1987-12, 2776-08, ####[facility] LABORATORYCLIA [id number] [place] [address] [place] Anion gap [Moles/Vol] 16 mmol/L Normal 9-18 [facility] Comment on above: Order Comment: Speci men Type: BLOOD SPECIMENOrdering Facility: [facility] Address: [address] [address] [id number] Performed By: #### 2 4323-03, 1987-12, 2776-08, ####[facility] LABORATORYCLIA [id number] [place] [address] [place] AST [Catalytic activity/Vol] 15 U/L Normal 14-40 [facility] Comment on above: Order Comment: Speci men Type: BLOOD SPECIMENOrdering Facility: [facility] Address: [address] [address] Performed By: #### 2 4323-03, 1987-12, 2776-08, ####[facility] LABORATORYCLIA [id number] [place] [address] [place] Bilirubin [Mass/Vol] 1.0 mg/dL Normal 0.2-1.3 [facility] Comment on above: Order Comment: Speci men Type: BLOOD SPECIMENOrdering Facility: [facility] Address: [address] [id number] Performed By: #### 2 4323-03, 1987-12, 2776-08, ####[facility] LABORATORYCLIA [id number] [place] [address] [place] Calcium [Mass/Vol] 9.4 mg/dL Normal 8.5-10.2 [facility] Comment on above: Order Comment: Speci men Type: BLOOD SPECIMENOrdering Facility: [facility] Address: [place] [address] Performed By: #### 2 432-8, 1987-12, 2776-08, ####[facility]ATORYCLIA [id number] [place] [address] [place] Chloride [Moles/Vol] 100 mmol/L Normal 97-105 [facility] Comment on above: Order Comment: Speci men Type: BLOOD SPECIMENOrdering Facility: [facility] Address: [address] [place] [address] Performed By: #### 2 4328, 1987-12, 2776-08, ####[facility]ATORYCLIA [id number] [place] [address] [place] CO2 [Moles/Vol] 25 mmol/L Normal 22-30 [facility] Comment on above: Order Comment: Speci men Type: BLOOD SPECIMENOrdering Facility: [facility] Address: [place] [address] Performed By: #### 2 4328, 1987-12, 2776-08, ####[facility]ATORYCLIA [id number] [place] [address] [place] Creatinine [Mass/Vol] 1.38 mg/dL High 0.73-1.22 [facility] Comment on above: Order Comment: Speci men Type: BLOOD SPECIMENOrdering Facility: [facility] Address: [address] [place] [address] Performed By: #### 2 4328, 1987-12, 2776-08, ####[facility]ATORYCLIA [id number] [place] [address] [place] Creatinine and Glomerular filtration rate.predicted panel (S/P/Bld) 56 mL/min/1.73m??? Low >=60 [facility] Comment on above: Order Comment: Arben suarez Type: BLOOD SPECIMENOrdering Facility: [facility] Address: [address] [place] [address] Result Comment: Bailey mated Glomerular Filtration Rate (eGFR) is calculated using the 2020 CKD-EPI creatinine equation. This equation utilizes serum creatinine, sex, and age as parameters. The creatinine assay has traceable calibration to isotope dilution-mass spectrometry. Refer to KDIGO guidelines for clinical interpretation. In patients with unstable renal function, e.g. those with acute kidney injury, the eGFR may not accurately reflect actual GFR. Performed By: #### 2 4323-8, 1987-12, 2776-08, ####[facility]ATORYCLIA [id number] [place] [address] [place] Glucose [Mass/Vol] 123 mg/dL High 74-99 [facility] Comment on above: Order Comment: Arben suarez Type: BLOOD SPECIMENOrdering Facility: [facility] Address: [facility] [place] [address] Result Comment: The [place] Diabetes Association (ADA) provides guidance for cutoff values for fasting glucose and random glucose. The ADA defines fasting as no caloric intake for at least 8 hours. Fasting plasma glucose results between 100 to 125 mg/dL indicate increased risk for diabetes (prediabetes).Fasting plasma glucose results greater than or equal to 126 mg/dL meet the criteria for diagnosis of diabetes. In the absence of unequivocal hyperglycemia, results should be confirmed by repeat testing. In a patient with classic symptoms of hyperglycemia or hyperglycemic crisis, random plasma glucose results greater than or equal to 200 mg/dL meet the criteria for diagnosis of diabetes.Reference: Standards of Medical Care in Diabetes 2016, [place] [employer] Association. Diabetes Care. 2016.39(Suppl 1). Performed By: #### 2 4323-8, 1987-12, 2776-08, ####[facility]ATORYCLIA [id number] [place] [address] [place] Potassium [Moles/Vol] 3.3 mmol/L Low 3.7-5.1 [facility] Comment on above: Order Comment: Arben suarez Type: BLOOD SPECIMENOrdering Facility: [facility] Address: [address] [facility] [place] [id number] Performed By: #### 2 8, 1987-12, 2776-08, ####[facility]ATORYCLIA [id number] [place] [address] [place] Protein [Mass/Vol] 7.5 g/dL Normal 6.3-8.0 [facility] Comment on above: Order Comment: Speci men Type: BLOOD SPECIMENOrdering Facility: [facility] Address: [place] [address] Performed By: #### 2 4323-03, 1987-12, 2776-08, ####[facility]ATORYCLIA [id number] [place] [address] [place] Sodium [Moles/Vol] 141 mmol/L Normal 136-144 [facility] Comment on above: Order Comment: Speci men Type: BLOOD SPECIMENOrdering Facility: [facility] Address: [place] [address] Performed By: #### 2 4323-03, 1987-12, 2776-08, ####[facility]ATORYCLIA [id number] [place] [id number] [place] Urea nitrogen [Mass/Vol] 32 mg/dL High 9-24 [facility] Comment on above: Order Comment: Speci men Type: BLOOD SPECIMENOrdering Facility: [facility] Address: [address] [place] [id number] Performed By: #### 2 4323-03, 1987-12, 2776-08, ####[facility]ATORYCLIA [id number] [place] [address] [place] Magnesium SerPl-mCncon 08-11 Magnesium [Mass/Vol] 2.1 mg/dL Normal 1.7-2.3 [facility] Comment on above: Order Comment: Speci men Type: BLOOD SPECIMENOrdering Facility: [facility] Address: [place] [address] Performed By: #### 2 4323-03, 1987-12, 2776-08, ####[facility]ATORYCLIA [id number] [place] [address] [place] NUTRITIONon 08-11-2023 NUTRITION Normal [facility] Phosphate SerPl-mCncon 08-11 Phosphate [Mass/Vol] 3.9 mg/dL Normal 2.7-4.8 [facility] Comment on above: Order Comment: Speci men Type: BLOOD SPECIMENOrdering Facility: [facility] Address: [address] [place] [address] Performed By: #### 2 8, 1987-12, 2776-08, ####[facility]ATORYCLIA [id number] [place] [id number] [place] CBC W Auto Differential pane l (Bld)on 08-10-2023 Basophils (Bld) [#/Vol] 0.04 10*3/uL Normal <0.11 [facility] Comment on above: Order Comment: Speci men Type: BLOOD SPECIMENOrdering Facility: [facility] Address: [address] [place] [address] Performed By: #### 5 7021-8 ####[facility]ATORYCLIA [id number] [place] [address] [place] Basophils/100 WBC (Bld) 0.4 % Normal [facility] Comment on above: Order Comment: Speci men Type: BLOOD SPECIMENOrdering Facility: [facility] Address: [address] [place] [address] Performed By: #### 5 7021-8 ####[facility]ATORYCLIA [id number] [place] [address] [place] Differential cell count method Nom (Bld) Auto Normal [facility] Comment on above: Order Comment: Speci men Type: BLOOD SPECIMENOrdering Facility: [facility] Address: [address] [place] [address] Performed By: #### 5 7021-8 ####[facility]ATORYCLIA [id number] [place] [address] [place] Eosinophils (Bld) [#/Vol] 0.21 10*3/uL Normal <0.46 [facility] Comment on above: Order Comment: Speci men Type: BLOOD SPECIMENOrdering Facility: [facility] Address: [address] [place] [address] Performed By: #### 5 7021-8 ####[facility]ORATORYCLIA [id number] [address] [place] Eosinophils/100 WBC (Bld) 1.9 % Normal [facility] Comment on above: Order Comment: Speci men Type: BLOOD SPECIMENOrdering Facility: [facility] Address: [address] [place] [address] Performed By: #### 5 7021-8 ####[facility]ORATORYCLIA [id number] [address] [place] Erythrocyte distribution width (RBC) [Ratio] 12.1 % Normal 11.5-15.0 [facility] Comment on above: Order Comment: Speci men Type: BLOOD SPECIMENOrdering Facility: [facility] Address: [address] [place] [address] Performed By: #### 5 7021-8 ####[facility]ORATORYCLIA [id number] [address] [place] Hematocrit (Bld) [Volume fraction] 41.9 % Normal 39.0-51.0 [facility] Comment on above: Order Comment: Speci men Type: BLOOD SPECIMENOrdering Facility: [facility] Address: [address] [place] [address] Performed By: #### 5 7021-8 ####[facility]ORATORYCLIA [id number] [place] [address] [place] Hemoglobin (Bld) [Mass/Vol] 14.3 g/dL Normal 13.0-17.0 [facility] Comment on above: Order Comment: Speci men Type: BLOOD SPECIMENOrdering Facility: [facility] Address: [address] [place] [address] Performed By: #### 5 7021-8 ####[facility]ATORYCLIA [id number] [address] [place] Immature granulocytes (Bld) [#/Vol] 0.05 10*3/uL Normal <0.10 [facility] Comment on above: Order Comment: Speci men Type: BLOOD SPECIMENOrdering Facility: [facility] Address: [address] [place] [address] Performed By: #### 5 7021-8 ####[facility] LABORATORYCLIA [id number] [address] Immature granulocytes/100 WBC (Bld) 0.4 % Normal [facility] Comment on above: Order Comment: Speci men Type: BLOOD SPECIMENOrdering Facility: [facility] Address: [address] [place] [address] Performed By: #### 5 7021-8 ####[facility] LABORATORYCLIA [id number] [address] [place] [facility] Lymphocytes (Bld) [#/Vol] 0.93 10*3/uL Low 1.00-4.00 [facility] Comment on above: Order Comment: Speci men Type: BLOOD SPECIMENOrdering Facility: [facility] Address: [address] [place] [address] Performed By: #### 5 7021-8 ####[facility] LABORATORYCLIA [id number] [address] Lymphocytes/100 WBC (Bld) 8.4 % Normal [facility] Comment on above: Order Comment: Speci men Type: BLOOD SPECIMENOrdering Facility: [facility] Address: [address] [place] [address] Performed By: #### 5 7021-8 ####[facility] LABORATORYCLIA [id number] [place] [address] [place] MCH (RBC) [Entitic mass] 29.9 pg Normal 26.0-34.0 [facility] Comment on above: Order Comment: Speci men Type: BLOOD SPECIMENOrdering Facility: [facility] Address: [address] [place] [address] Performed By: #### 5 7021-8 ####[facility] LABORATORYCLIA [id number] [place] [address] [place] MCHC (RBC) [Mass/Vol] 34.1 g/dL Normal 30.5-36.0 [facility] Comment on above: Order Comment: Speci men Type: BLOOD SPECIMENOrdering Facility: [facility] Address: [address] [place] [address] Performed By: #### 5 7021-8 ####[facility] LABORATORYCLIA [id number] [place] [address] [place] MCV (RBC) [Entitic vol] 87.7 fL Normal 80.0-100.0 [facility] Comment on above: Order Comment: Speci men Type: BLOOD SPECIMENOrdering Facility: [facility] Address: [address] [place] [address] Performed By: #### 5 7021-8 ####[facility] LABORATORYCLIA [id number] [place] [address] [place] Monocytes (Bld) [#/Vol] 1.28 10*3/uL High <0.87 [facility] Comment on above: Order Comment: Speci men Type: BLOOD SPECIMENOrdering Facility: [facility] Address: [address] [place] [address] Performed By: #### 5 7021-8 ####[facility] LABORATORYCLIA [id number] [address] [place] Monocytes/100 WBC (Bld) 11.5 % Normal [facility] Comment on above: Order Comment: Speci men Type: BLOOD SPECIMENOrdering Facility: [facility] Address: [address] [place] [address] Performed By: #### 5 7021-8 ####[facility]ATORYCLIA [id number] [place] [address] [place] Neutrophils (Bld) [#/Vol] 8.62 10*3/uL High 1.45-7.50 [facility] Comment on above: Order Comment: Speci men Type: BLOOD SPECIMENOrdering Facility: [facility] Address: [address] [place] [address] Performed By: #### 5 7021-8 ####[facility]ORATORYCLIA [id number] [place] [address] [place] Neutrophils/100 WBC (Bld) 77.4 % Normal [facility] Comment on above: Order Comment: Speci men Type: BLOOD SPECIMENOrdering Facility: [facility] Address: [address] [place] [address] Performed By: #### 5 7021-8 ####[facility]ATORYCLIA [id number] [place] [address] [place] Nucleated RBC (Bld) [#/Vol] 10*3/uL Normal <0.01 [facility] Comment on above: Order Comment: Speci men Type: BLOOD SPECIMENOrdering Facility: [facility] Address: [address] [place] [address] Performed By: #### 5 7021-8 ####[facility]ORATORYCLIA [id number] [place] [address] [place] Nucleated RBC/100 WBC (Bld) [Ratio] 0.0 /100 WBC Normal [facility] Comment on above: Order Comment: Speci men Type: BLOOD SPECIMENOrdering Facility: [facility] Address: [address] [place] [address] Performed By: #### 5 7021-8 ####[facility] LABORATORYCLIA [id number] [place] [address] [place] Platelet mean volume (Bld) [Entitic vol] 11.5 fL Normal 9.0-12.7 [facility] Comment on above: Order Comment: Speci men Type: BLOOD SPECIMENOrdering Facility: [facility] Address: [address] [place] [address] Performed By: #### 5 7021-8 ####[facility] LABORATORYCLIA [id number] [place] [address] [place] Platelets (Bld) [#/Vol] 285 10*3/uL Normal 150-400 [facility] Comment on above: Order Comment: Speci men Type: BLOOD SPECIMENOrdering Facility: [facility] Address: [address] [place] [address] Performed By: #### 5 7021-8 ####[facility]ORATORYCLIA [id number] [place] [address] [place] RBC (Bld) [#/Vol] 4.78 10*6/uL Normal 4.20-6.00 [facility] Comment on above: Order Comment: Speci men Type: BLOOD SPECIMENOrdering Facility: [facility] Address: [address] [place] [address] Performed By: #### 5 7021-8 ####[facility]ATORYCLIA [id number] [place] [address] [place] WBC (Bld) [#/Vol] 11.13 10*3/uL High 3.70-11.00 [facility] Comment on above: Order Comment: Speci men Type: BLOOD SPECIMENOrdering Facility: [facility] Address: [address] [place] [address] Performed By: #### 5 7021-8 ####[facility]ATORYCLIA [id number] [place] [address] [place] Comprehensive metabolic 2000 panelon 08-10-2023 Albumin [Mass/Vol] 4.0 g/dL Normal 3.9-4.9 [facility] Comment on above: Order Comment: Speci men Type: BLOOD SPECIMENOrdering Facility: [facility] Address: [address] [place] [address] Performed By: #### 2 4323-8, , 2776-08 ####[facility]ORATORYCLIA [id number] [place] [address] [place] ALP [Catalytic activity/Vol] 111 U/L Normal 38-113 [facility] Comment on above: Order Comment: Speci men Type: BLOOD SPECIMENOrdering Facility: [facility] Address: [address] [place] [address] Performed By: #### 2 4323-8, , 2776- ####[facility]ORATORYCLIA [id number] [place] [id number] [place] ALT [Catalytic activity/Vol] 21 U/L Normal 10-54 [facility] Comment on above: Order Comment: Speci men Type: BLOOD SPECIMENOrdering Facility: [facility] Address: [address] [place] [address] Performed By: #### 2 4323-8, , 2776-08 ####[facility] LABORATORYCLIA [id number] [place] [address] [place] Anion gap [Moles/Vol] 15 mmol/L Normal 9-18 [facility] Comment on above: Order Comment: Speci men Type: BLOOD SPECIMENOrdering Facility: [facility] Address: [address] [place] [address] Performed By: #### 2 4323-8, , 2776-08 ####[facility] LABORATORYCLIA [id number] [place] [address] [place] AST [Catalytic activity/Vol] 16 U/L Normal 14-40 [facility] Comment on above: Order Comment: Speci men Type: BLOOD SPECIMENOrdering Facility: [facility] Address: [address] [place] [address] Performed By: #### 2 4323-8, , 2776-08 ####[facility] LABORATORYCLIA [id number] [place] [address] [place] Bilirubin [Mass/Vol] 0.7 mg/dL Normal 0.2-1.3 [facility] Comment on above: Order Comment: Speci men Type: BLOOD SPECIMENOrdering Facility: [facility] Address: [address] [place] [address] Performed By: #### 2 4323-8, , 2776-08 ####[facility] LABORATORYCLIA [id number] [place] [id number] [place] Calcium [Mass/Vol] 9.3 mg/dL Normal 8.5-10.2 [facility] Comment on above: Order Comment: Speci men Type: BLOOD SPECIMENOrdering Facility: [facility] Address: [address] [place] [address] Performed By: #### 2 4323-8, 30946-7, 2776-08 ####[facility]ATORYCLIA [id number] [place] [address] [place] Chloride [Moles/Vol] 100 mmol/L Normal 97-105 [facility] Comment on above: Order Comment: Speci men Type: BLOOD SPECIMENOrdering Facility: [facility] Address: [address] [place] [address] Performed By: #### 2 4323-8, , 2776-08 ####[facility] LABORATORYCLIA [id number] [place] [id number] [place] CO2 [Moles/Vol] 25 mmol/L Normal 22-30 [facility] Comment on above: Order Comment: Speci men Type: BLOOD SPECIMENOrdering Facility: [facility] Address: [address] [place] [address] Performed By: #### 2 4323-8, , 2776-08 ####[facility] LABORATORYCLIA [id number] [place] [id number] [place] Creatinine [Mass/Vol] 1.34 mg/dL High 0.73-1.22 [facility] Comment on above: Order Comment: Speci men Type: BLOOD SPECIMENOrdering Facility: [facility] Address: [address] [place] [address] Performed By: #### 2 4323-8, , 2776-08 ####[facility] LABORATORYCLIA [id number] [place] [id number] [place] Creatinine and Glomerular filtration rate.predicted panel (S/P/Bld) 58 mL/min/1.73m??? Low >=60 [facility] Comment on above: Order Comment: Speci men Type: BLOOD SPECIMENOrdering Facility: [facility] Address: [address] [place] [address] Result Comment: Bailey mated Glomerular Filtration Rate (eGFR) is calculated using the 2020 CKD-EPI creatinine equation. This equation utilizes serum creatinine, sex, and age as parameters. The creatinine assay has traceable calibration to isotope dilution-mass spectrometry. Refer to KDIGO guidelines for clinical interpretation. In patients with unstable renal function, e.g. those with acute kidney injury, the eGFR may not accurately reflect actual GFR. Performed By: #### 2 4323-8, , 2776-08 ####[facility] LABORATORYCLIA [id number] [place] [id number] [place] Glucose [Mass/Vol] 105 mg/dL High 74-99 [facility] Comment on above: Order Comment: Speci men Type: BLOOD SPECIMENOrdering Facility: [facility] Address: [address] [place] [address] Result Comment: The [place] Diabetes Association (ADA) provides guidance for cutoff values for fasting glucose and random glucose. The ADA defines fasting as no caloric intake for at least 8 hours. Fasting plasma glucose results between 100 to 125 mg/dL indicate increased risk for diabetes (prediabetes).Fasting plasma glucose results greater than or equal to 126 mg/dL meet the criteria for diagnosis of diabetes. In the absence of unequivocal hyperglycemia, results should be confirmed by repeat testing. In a patient with classic symptoms of hyperglycemia or hyperglycemic crisis, random plasma glucose results greater than or equal to 200 mg/dL meet the criteria for diagnosis of diabetes.Reference: Standards of Medical Care in Diabetes 2016, [place] [employer] Association. Diabetes Care. 2016.39(Suppl 1). Performed By: #### 2 4323-8, , 2776-08 ####[facility] LABORATORYCLIA [id number] [place] [id number] [place] Potassium [Moles/Vol] 3.6 mmol/L Low 3.7-5.1 [facility] Comment on above: Order Comment: Arben suarez Type: BLOOD SPECIMENOrdering Facility: [facility] Address: [address] [place] [address] Performed By: #### 2 4323-8, , 2776-08 ####[facility] LABORATORYCLIA [id number] [place] [address] [place] Protein [Mass/Vol] 7.5 g/dL Normal 6.3-8.0 [facility] Comment on above: Order Comment: Demarcusi men Type: BLOOD SPECIMENOrdering Facility: [facility] Address: [address] [place] [id number] Performed By: #### 2 4323-8, , 2776-08 ####[facility] LABORATORYCLIA [id number] [place] [address] [place] Sodium [Moles/Vol] 140 mmol/L Normal 136-144 [facility] Comment on above: Order Comment: Speci men Type: BLOOD SPECIMENOrdering Facility: [facility] Address: [address] [place] [address] Performed By: #### 2 4323-8, , 2776-08 ####[facility] LABORATORYCLIA [id number] [place] [address] [place] Urea nitrogen [Mass/Vol] 28 mg/dL High 9-24 [facility] Comment on above: Order Comment: Speci men Type: BLOOD SPECIMENOrdering Facility: [facility] Address: [place] [address] Performed By: #### 2 4323-8, , 2776-08 ####[facility] LABORATORYCLIA [id number] [place] [address] [place] Magnesium SerPl-ncon 08-10 Magnesium [Mass/Vol] 2.0 mg/dL Normal 1.7-2.3 [facility] Comment on above: Order Comment: Speci men Type: BLOOD SPECIMENOrdering Facility: [facility] Address: [address] [place] [id number] Performed By: #### 2 4323-8, , 2776-08 ####[facility] LABORATORYCLIA [id number] [place] [address] [place] NURSING PROGon 08-10-2023 NURSING PROG Normal [facility] Phosphate SerPl-mCncon 08-10 Phosphate [Mass/Vol] 3.9 mg/dL Normal 2.7-4.8 [facility] Comment on above: Order Comment: Speci men Type: BLOOD SPECIMENOrdering Facility: [facility] Address: [place] [address] Performed By: #### 2 4323-8, 53449-5, 2777-1 ####[facility] LABORATORYCLIA [id number] [place] [id number] [place] CBC W Auto Differential pane l (Bld)on 08-09-2023 Basophils (Bld) [#/Vol] 0.06 10*3/uL Normal <0.11 [facility] Comment on above: Order Comment: Speci men Type: BLOOD SPECIMENOrdering Facility: [facility] Address: [address] [place] [address] Performed By: #### 5 7021-8 ####[facility] LABORATORYCLIA [id number] [place] [id number] [place] Basophils/100 WBC (Bld) 0.6 % Normal [facility] Comment on above: Order Comment: Speci men Type: BLOOD SPECIMENOrdering Facility: [facility] Address: [address] [place] [address] Performed By: #### 5 7021-8 ####[facility] LABORATORYCLIA [id number] [place] [address] [place] Differential cell count method Nom (Bld) Auto Normal [facility] Comment on above: Order Comment: Speci men Type: BLOOD SPECIMENOrdering Facility: [facility] Address: [address] [place] [address] Performed By: #### 5 7021-8 ####[facility] LABORATORYCLIA [id number] [place] [address] [place] Eosinophils (Bld) [#/Vol] 0.28 10*3/uL Normal <0.46 [facility] Comment on above: Order Comment: Speci men Type: BLOOD SPECIMENOrdering Facility: [facility] Address: [address] [place] [address] Performed By: #### 5 7021-8 ####[facility] LABORATORYCLIA [id number] [place] [address] [place] Eosinophils/100 WBC (Bld) 2.9 % Normal [facility] Comment on above: Order Comment: Speci men Type: BLOOD SPECIMENOrdering Facility: [facility] Address: [address] [place] [address] Performed By: #### 5 7021-8 ####[facility] LABORATORYCLIA [id number] [place] [address] [place] Erythrocyte distribution width (RBC) [Ratio] 11.9 % Normal 11.5-15.0 [facility] Comment on above: Order Comment: Speci men Type: BLOOD SPECIMENOrdering Facility: [facility] Address: [address] [place] [address] Performed By: #### 5 7021-8 ####[facility] LABORATORYCLIA [id number] [place] [address] [place] Hematocrit (Bld) [Volume fraction] 38.0 % Low 39.0-51.0 [facility] Comment on above: Order Comment: Speci men Type: BLOOD SPECIMENOrdering Facility: [facility] Address: [address] [place] [address] Performed By: #### 5 7021-8 ####[facility] LABORATORYCLIA [id number] [place] [address] [place] Hemoglobin (Bld) [Mass/Vol] 13.0 g/dL Normal 13.0-17.0 [facility] Comment on above: Order Comment: Speci men Type: BLOOD SPECIMENOrdering Facility: [facility] Address: [address] [place] [address] Performed By: #### 5 7021-8 ####[facility] LABORATORYCLIA [id number] [place] [address] [place] Immature granulocytes (Bld) [#/Vol] 0.05 10*3/uL Normal <0.10 [facility] Comment on above: Order Comment: Speci men Type: BLOOD SPECIMENOrdering Facility: [facility] Address: [address] [place] [address] Performed By: #### 5 7021-8 ####[facility] LABORATORYCLIA [id number] [place] [address] [place] Immature granulocytes/100 WBC (Bld) 0.5 % Normal [facility] Comment on above: Order Comment: Speci men Type: BLOOD SPECIMENOrdering Facility: [facility] Address: [address] [place] [address] Performed By: #### 5 7021-8 ####[facility]ORATORYCLIA [id number] [address] [place] Lymphocytes (Bld) [#/Vol] 0.87 10*3/uL Low 1.00-4.00 [facility] Comment on above: Order Comment: Speci men Type: BLOOD SPECIMENOrdering Facility: [facility] Address: [address] [place] [address] Performed By: #### 5 7021-8 ####[facility] LABORATORYCLIA [id number] [address] Lymphocytes/100 WBC (Bld) 9.1 % Normal [facility] Comment on above: Order Comment: Speci men Type: BLOOD SPECIMENOrdering Facility: [facility] Address: [address] [place] [address] Performed By: #### 5 7021-8 ####[facility] LABORATORYCLIA [id number] [place] [address] [place] MCH (RBC) [Entitic mass] 29.8 pg Normal 26.0-34.0 [facility] Comment on above: Order Comment: Speci men Type: BLOOD SPECIMENOrdering Facility: [facility] Address: [address] [place] [address] Performed By: #### 5 7021-8 ####[facility] LABORATORYCLIA [id number] [place] [address] [place] [facility] MCHC (RBC) [Mass/Vol] 34.2 g/dL Normal 30.5-36.0 [facility] Comment on above: Order Comment: Speci men Type: BLOOD SPECIMENOrdering Facility: [facility] Address: [address] [place] [address] Performed By: #### 5 7021-8 ####[facility] LABORATORYCLIA [id number] [address] [place] MCV (RBC) [Entitic vol] 87.2 fL Normal 80.0-100.0 [facility] Comment on above: Order Comment: Speci men Type: BLOOD SPECIMENOrdering Facility: [facility] Address: [address] [place] [address] Performed By: #### 5 7021-8 ####[facility] LABORATORYCLIA [id number] [place] [address] [place] Monocytes (Bld) [#/Vol] 1.22 10*3/uL High <0.87 [facility] Comment on above: Order Comment: Speci men Type: BLOOD SPECIMENOrdering Facility: [facility] Address: [address] [place] [address] Performed By: #### 5 7021-8 ####[facility] LABORATORYCLIA [id number] [place] [address] [place] Monocytes/100 WBC (Bld) 12.8 % Normal [facility] Comment on above: Order Comment: Speci men Type: BLOOD SPECIMENOrdering Facility: [facility] Address: [address] [place] [address] Performed By: #### 5 7021-8 ####[facility] LABORATORYCLIA [id number] [place] [address] [place] Neutrophils (Bld) [#/Vol] 7.06 10*3/uL Normal 1.45-7.50 [facility] Comment on above: Order Comment: Speci men Type: BLOOD SPECIMENOrdering Facility: [facility] Address: [address] [place] [address] Performed By: #### 5 7021-8 ####[facility] LABORATORYCLIA [id number] [place] [id number] [place] Neutrophils/100 WBC (Bld) 74.1 % Normal [facility] Comment on above: Order Comment: Speci men Type: BLOOD SPECIMENOrdering Facility: [facility] Address: [address] [place] [address] Performed By: #### 5 7021-8 ####[facility] LABORATORYCLIA [id number] [place] [address] [place] Nucleated RBC (Bld) [#/Vol] 10*3/uL Normal <0.01 [facility] Comment on above: Order Comment: Speci men Type: BLOOD SPECIMENOrdering Facility: [facility] Address: [address] [place] [address] Performed By: #### 5 7021-8 ####[facility] LABORATORYCLIA [id number] [place] [address] [place] Nucleated RBC/100 WBC (Bld) [Ratio] 0.0 /100 WBC Normal [facility] Comment on above: Order Comment: Speci men Type: BLOOD SPECIMENOrdering Facility: [facility] Address: [address] [place] [address] Performed By: #### 5 7021-8 ####[facility] LABORATORYCLIA [id number] [place] [address] [place] Platelet mean volume (Bld) [Entitic vol] 11.2 fL Normal 9.0-12.7 [facility] Comment on above: Order Comment: Speci men Type: BLOOD SPECIMENOrdering Facility: [facility] Address: [address] [place] [address] Performed By: #### 5 7021-8 ####[facility] LABORATORYCLIA [id number] [place] [address] [place] Platelets (Bld) [#/Vol] 298 10*3/uL Normal 150-400 [facility] Comment on above: Order Comment: Speci men Type: BLOOD SPECIMENOrdering Facility: [facility] Address: [address] [place] [address] Performed By: #### 5 7021-8 ####[facility] LABORATORYCLIA [id number] [place] [address] [place] RBC (Bld) [#/Vol] 4.36 10*6/uL Normal 4.20-6.00 [facility] Comment on above: Order Comment: Speci men Type: BLOOD SPECIMENOrdering Facility: [facility] Address: [address] [place] [address] Performed By: #### 5 7021-8 ####[facility] LABORATORYCLIA [id number] [place] [address] [place] WBC (Bld) [#/Vol] 9.54 10*3/uL Normal 3.70-11.00 [facility] Comment on above: Order Comment: Speci men Type: BLOOD SPECIMENOrdering Facility: [facility] Address: [address] [place] [address] Performed By: #### 5 7021-8 ####[facility] LABORATORYCLIA [id number] [place] [id number] [place] Comprehensive metabolic 2000 panelon 08-09-2023 Albumin [Mass/Vol] 3.9 g/dL Normal 3.9-4.9 [facility] Comment on above: Order Comment: Speci men Type: BLOOD SPECIMENOrdering Facility: [facility] Address: [address] [place] [address] Performed By: #### 2 4323-8, 2776-08, ####[facility] LABORATORYCLIA [id number] [place] [address] [place] ALP [Catalytic activity/Vol] 110 U/L Normal 38-113 [facility] Comment on above: Order Comment: Speci men Type: BLOOD SPECIMENOrdering Facility: [facility] Address: [address] [place] [address] Performed By: #### 2 4323-8, 2776-08, ####[facility] LABORATORYCLIA [id number] [place] [id number] [place] ALT [Catalytic activity/Vol] 26 U/L Normal 10-54 [facility] Comment on above: Order Comment: Speci men Type: BLOOD SPECIMENOrdering Facility: [facility] Address: [address] [place] [address] Performed By: #### 2 4323-8, 2776-08, ####[facility] LABORATORYCLIA [id number] [place] [id number] [place] Anion gap [Moles/Vol] 11 mmol/L Normal 9-18 [facility] Comment on above: Order Comment: Speci men Type: BLOOD SPECIMENOrdering Facility: [facility] Address: [address] [place] [address] Performed By: #### 2 4323-8, 2776-08, ####[facility] LABORATORYCLIA [id number] [place] [id number] [place] AST [Catalytic activity/Vol] 21 U/L Normal 14-40 [facility] Comment on above: Order Comment: Speci men Type: BLOOD SPECIMENOrdering Facility: [facility] Address: [address] [place] [address] Performed By: #### 2 4323-8, 2776-08, ####[facility] LABORATORYCLIA [id number] [place] [address] [place] Bilirubin [Mass/Vol] 0.6 mg/dL Normal 0.2-1.3 [facility] Comment on above: Order Comment: Speci men Type: BLOOD SPECIMENOrdering Facility: [facility] Address: [address] [place] [address] Performed By: #### 2 4323-8, 2776-08, ####[facility] LABORATORYCLIA [id number] [place] [address] [place] Calcium [Mass/Vol] 9.4 mg/dL Normal 8.5-10.2 [facility] Comment on above: Order Comment: Speci men Type: BLOOD SPECIMENOrdering Facility: [facility] Address: [address] [place] [address] Performed By: #### 2 4323-8, 2776-08, ####[facility] LABORATORYCLIA [id number] [place] [address] [place] Chloride [Moles/Vol] 104 mmol/L Normal 97-105 [facility] Comment on above: Order Comment: Speci men Type: BLOOD SPECIMENOrdering Facility: [facility] Address: [address] [place] [address] Performed By: #### 2 4323-8, 2776-08, ####[facility] LABORATORYCLIA [id number] [place] [address] [place] CO2 [Moles/Vol] 23 mmol/L Normal 22-30 [facility] Comment on above: Order Comment: Speci daniela Type: BLOOD SPECIMENOrdering Facility: [facility] Address: [address] [place] [address] Performed By: #### 2 4323-8, 2777-, ####[facility] LABORATORYCLIA [id number] [place] [address] [place] Creatinine [Mass/Vol] 1.52 mg/dL High 0.73-1.22 [facility] Comment on above: Order Comment: Demarcusi daniela Type: BLOOD SPECIMENOrdering Facility: [facility] Address: [address] [place] [address] Performed By: #### 2 4323-8, 2777, ####[facility] LABORATORYCLIA [id number] [place] [address] [place] Creatinine and Glomerular filtration rate.predicted panel (S/P/Bld) 50 mL/min/1.73m??? Low >=60 [facility] Comment on above: Order Comment: Arben suarez Type: BLOOD SPECIMENOrdering Facility: [facility] Address: [address] [place] [address] Result Comment: Bailey mated Glomerular Filtration Rate (eGFR) is calculated using the 2020 CKD-EPI creatinine equation. This equation utilizes serum creatinine, sex, and age as parameters. The creatinine assay has traceable calibration to isotope dilution-mass spectrometry. Refer to KDIGO guidelines for clinical interpretation. In patients with unstable renal function, e.g. those with acute kidney injury, the eGFR may not accurately reflect actual GFR. Performed By: #### 2 4323-8, 2777-, ####[facility] LABORATORYCLIA [id number] [place] [address] [place] Glucose [Mass/Vol] 132 mg/dL High 74-99 [facility] Comment on above: Order Comment: Speci daniela Type: BLOOD SPECIMENOrdering Facility: [facility] Address: [address] [place] [address] Result Comment: The [place] Diabetes Association (ADA) provides guidance for cutoff values for fasting glucose and random glucose. The ADA defines fasting as no caloric intake for at least 8 hours. Fasting plasma glucose results between 100 to 125 mg/dL indicate increased risk for diabetes (prediabetes).Fasting plasma glucose results greater than or equal to 126 mg/dL meet the criteria for diagnosis of diabetes. In the absence of unequivocal hyperglycemia, results should be confirmed by repeat testing. In a patient with classic symptoms of hyperglycemia or hyperglycemic crisis, random plasma glucose results greater than or equal to 200 mg/dL meet the criteria for diagnosis of diabetes.Reference: Standards of Medical Care in Diabetes 2016, [place] [employer]. Diabetes Care. 2016.39(Suppl 1). Performed By: #### 2 4323-8, 2776-08, ####[facility] LABORATORYCLIA [id number] [place] [address] [place] Potassium [Moles/Vol] 3.9 mmol/L Normal 3.7-5.1 [facility] Comment on above: Order Comment: Speci men Type: BLOOD SPECIMENOrdering Facility: [facility] Address: [address] [place] [id number] Performed By: #### 2 4323-8, 2776-08, ####[facility] LABORATORYCLIA [id number] [place] [address] [place] Protein [Mass/Vol] 7.3 g/dL Normal 6.3-8.0 [facility] Comment on above: Order Comment: Speci men Type: BLOOD SPECIMENOrdering Facility: [facility] Address: [address] [place] [address] Performed By: #### 2 4323-8, 2776-08, ####[facility] LABORATORYCLIA [id number] [place] [address] [place] Sodium [Moles/Vol] 138 mmol/L Normal 136-144 [facility] Comment on above: Order Comment: Speci men Type: BLOOD SPECIMENOrdering Facility: [facility] Address: [address] [place] [address] Performed By: #### 2 4323-8, 2777-1, ####[facility] LABORATORYCLIA [id number] [place] [address] [place] Urea nitrogen [Mass/Vol] 25 mg/dL High 05-18 [facility] Comment on above: Order Comment: Speci men Type: BLOOD SPECIMENOrdering Facility: [facility] Address: [address] [place] [address] Performed By: #### 2 4323-8, 2777, ####[facility] LABORATORYCLIA [id number] [place] [address] [place] [facility] Magnesium [Mass/Vol] 2.2 mg/dL Normal 1.7-2.3 [facility] Comment on above: Order Comment: Speci men Type: BLOOD SPECIMENOrdering Facility: [facility] Address: [place] [address] Performed By: #### 2 4323-8, 27702-22, ####[facility] LABORATORYCLIA [id number] [place] [id number] [place] NURSING PROGon 08-09-2023 NURSING PROG Normal [facility] NUTRITIONon 08-09-2023 NUTRITION Normal [facility] Phosphate SerPl-mCncon 08-09 Phosphate [Mass/Vol] 3.1 mg/dL Normal 2.7-4.8 [facility] Comment on above: Order Comment: Speci men Type: BLOOD SPECIMENOrdering Facility: [facility] Address: [address] [place] [id number] Performed By: #### 2 4323-8, 2777, ####[facility] LABORATORYCLIA [id number] [place] [id number] [place] THERAPY NTon 08-09-2023 THERAPY NT Normal [facility] ALLIED HEALTHon 08-08-2023 ALLIED HEALTH Normal [facility] CASE [facility] 2022 [facility] W Auto Differential pane l (Bld)on 08-08-2023 Basophils (Bld) [#/Vol] 0.06 10*3/uL Normal <0.11 [facility] Comment on above: Order Comment: Speci men Type: BLOOD SPECIMENOrdering Facility: [facility] Address: [address] [place] [address] Performed By: #### 5 7021-8 ####[facility] LABORATORYCLIA [id number] [place] [address] [place] Basophils/100 WBC (Bld) 0.7 % Normal [facility] Comment on above: Order Comment: Speci men Type: BLOOD SPECIMENOrdering Facility: [facility] Address: [address] [place] [address] Performed By: #### 5 7021-8 ####[facility] LABORATORYCLIA [id number] [address] Differential cell count method Nom (Bld) Auto Normal [facility] Comment on above: Order Comment: Speci men Type: BLOOD SPECIMENOrdering Facility: [facility] Address: [address] [place] [address] Performed By: #### 5 7021-8 ####[facility] LABORATORYCLIA [id number] [place] [address] [place] Eosinophils (Bld) [#/Vol] 0.14 10*3/uL Normal <0.46 [facility] Comment on above: Order Comment: Speci men Type: BLOOD SPECIMENOrdering Facility: [facility] Address: [address] [place] [address] Performed By: #### 5 7021-8 ####[facility] LABORATORYCLIA [id number] [place] [address] [place] Eosinophils/100 WBC (Bld) 1.7 % Normal [facility] Comment on above: Order Comment: Speci men Type: BLOOD SPECIMENOrdering Facility: [facility] Address: [address] [place] [address] Performed By: #### 5 7021-8 ####[facility] LABORATORYCLIA [id number] [place] [address] [place] Erythrocyte distribution width (RBC) [Ratio] 11.9 % Normal 11.5-15.0 [facility] Comment on above: Order Comment: Speci men Type: BLOOD SPECIMENOrdering Facility: [facility] Address: [address] [place] [address] Performed By: #### 5 7021-8 ####[facility] LABORATORYCLIA [id number] [place] [id number] [place] Hematocrit (Bld) [Volume fraction] 39.6 % Normal 39.0-51.0 [facility] Comment on above: Order Comment: Speci men Type: BLOOD SPECIMENOrdering Facility: [facility] Address: [address] [place] [address] Performed By: #### 5 7021-8 ####[facility] LABORATORYCLIA [id number] [address] [place] Hemoglobin (Bld) [Mass/Vol] 13.7 g/dL Normal 13.0-17.0 [facility] Comment on above: Order Comment: Speci men Type: BLOOD SPECIMENOrdering Facility: [facility] Address: [address] [place] [address] Performed By: #### 5 7021-8 ####[facility] LABORATORYCLIA [id number] [address] [place] Immature granulocytes (Bld) [#/Vol] 0.06 10*3/uL Normal <0.10 [facility] Comment on above: Order Comment: Speci men Type: BLOOD SPECIMENOrdering Facility: [facility] Address: [address] [place] [address] Performed By: #### 5 7021-8 ####[facility] LABORATORYCLIA [id number] [place] [address] [place] Immature granulocytes/100 WBC (Bld) 0.7 % Normal [facility] Comment on above: Order Comment: Speci men Type: BLOOD SPECIMENOrdering Facility: [facility] Address: [address] [place] [address] Performed By: #### 5 7021-8 ####[facility] LABORATORYCLIA [id number] [place] [address] [place] Lymphocytes (Bld) [#/Vol] 1.02 10*3/uL Normal 1.00-4.00 [facility] Comment on above: Order Comment: Speci men Type: BLOOD SPECIMENOrdering Facility: [facility] Address: [address] [place] [address] Performed By: #### 5 7021-8 ####[facility] LABORATORYCLIA [id number] [place] [address] [place] Lymphocytes/100 WBC (Bld) 12.1 % Normal [facility] Comment on above: Order Comment: Speci men Type: BLOOD SPECIMENOrdering Facility: [facility] Address: [address] [place] [address] Performed By: #### 5 7021-8 ####[facility] LABORATORYCLIA [id number] [place] [address] [place] MCH (RBC) [Entitic mass] 29.9 pg Normal 26.0-34.0 [facility] Comment on above: Order Comment: Speci men Type: BLOOD SPECIMENOrdering Facility: [facility] Address: [address] [place] [address] Performed By: #### 5 7021-8 ####[facility] LABORATORYCLIA [id number] [place] [address] [place] MCHC (RBC) [Mass/Vol] 34.6 g/dL Normal 30.5-36.0 [facility] Comment on above: Order Comment: Speci men Type: BLOOD SPECIMENOrdering Facility: [facility] Address: [address] [place] [address] Performed By: #### 5 7021-8 ####[facility] LABORATORYCLIA [id number] [place] [address] [place] MCV (RBC) [Entitic vol] 86.5 fL Normal 80.0-100.0 [facility] Comment on above: Order Comment: Speci men Type: BLOOD SPECIMENOrdering Facility: [facility] Address: [address] [place] [address] Performed By: #### 5 7021-8 ####[facility] LABORATORYCLIA [id number] [place] [id number] [place] Monocytes (Bld) [#/Vol] 0.78 10*3/uL Normal <0.87 [facility] Comment on above: Order Comment: Speci men Type: BLOOD SPECIMENOrdering Facility: [facility] Address: [address] [place] [address] Performed By: #### 5 7021-8 ####[facility] LABORATORYCLIA [id number] [place] [id number] [place] Monocytes/100 WBC (Bld) 9.3 % Normal [facility] Comment on above: Order Comment: Speci men Type: BLOOD SPECIMENOrdering Facility: [facility] Address: [address] [place] [address] Performed By: #### 5 7021-8 ####[facility] LABORATORYCLIA [id number] [place] [address] [place] Neutrophils (Bld) [#/Vol] 6.37 10*3/uL Normal 1.45-7.50 [facility] Comment on above: Order Comment: Speci men Type: BLOOD SPECIMENOrdering Facility: [facility] Address: [address] [place] [address] Performed By: #### 5 7021-8 ####[facility] LABORATORYCLIA [id number] [place] [id number] [place] Neutrophils/100 WBC (Bld) 75.5 % Normal [facility] Comment on above: Order Comment: Speci men Type: BLOOD SPECIMENOrdering Facility: [facility] Address: [address] [place] [address] Performed By: #### 5 7021-8 ####[facility] LABORATORYCLIA [id number] [place] [id number] [place] Nucleated RBC (Bld) [#/Vol] 10*3/uL Normal <0.01 [facility] Comment on above: Order Comment: Speci men Type: BLOOD SPECIMENOrdering Facility: [facility] Address: [address] [place] [address] Performed By: #### 5 7021-8 ####[facility] LABORATORYCLIA [id number] [place] [address] [place] Nucleated RBC/100 WBC (Bld) [Ratio] 0.0 /100 WBC Normal [facility] Comment on above: Order Comment: Speci men Type: BLOOD SPECIMENOrdering Facility: [facility] Address: [address] [place] [address] Performed By: #### 5 7021-8 ####[facility] LABORATORYCLIA [id number] [place] [id number] [place] Platelet mean volume (Bld) [Entitic vol] 11.3 fL Normal 9.0-12.7 [facility] Comment on above: Order Comment: Speci men Type: BLOOD SPECIMENOrdering Facility: [facility] Address: [address] [place] [address] Performed By: #### 5 7021-8 ####[facility] LABORATORYCLIA [id number] [place] [id number] [place] Platelets (Bld) [#/Vol] 320 10*3/uL Normal 150-400 [facility] Comment on above: Order Comment: Speci men Type: BLOOD SPECIMENOrdering Facility: [facility] Address: [address] [place] [address] Performed By: #### 5 7021-8 ####[facility] LABORATORYCLIA [id number] [place] [id number] [place] RBC (Bld) [#/Vol] 4.58 10*6/uL Normal 4.20-6.00 [facility] Comment on above: Order Comment: Speci men Type: BLOOD SPECIMENOrdering Facility: [facility] Address: [address] [place] [address] Performed By: #### 5 7021-8 ####[facility] LABORATORYCLIA [id number] [place] [id number] [place] WBC (Bld) [#/Vol] 8.43 10*3/uL Normal 3.70-11.00 [facility] Comment on above: Order Comment: Speci men Type: BLOOD SPECIMENOrdering Facility: [facility] Address: [place] [address] Performed By: #### 5 7021-8 ####[facility] LABORATORYCLIA [id number] [place] [id number] [place] CONSULTon 08-08-2023 CONSULT Normal [facility] CT PANCREAS/PELVIS W IVCONon 08-08-2023 CT PANCREAS/PELVIS W IVCON Normal [facility] Comprehensive metabolic 2000 panelon 08-08-2023 Albumin [Mass/Vol] 4.5 g/dL Normal 3.9-4.9 [facility] Comment on above: Order Comment: Speci men Type: BLOOD SPECIMENOrdering Facility: [facility] Address: [place] [address] Performed By: #### 2 777-1, , ####[facility] LABORATORYCLIA [id number] [place] [address] [place] ALP [Catalytic activity/Vol] 114 U/L High 38-113 [facility] Comment on above: Order Comment: Speci men Type: BLOOD SPECIMENOrdering Facility: [facility] Address: [place] [address] Performed By: #### 2 777-1, , ####[facility] LABORATORYCLIA [id number] [place] [id number] [place] ALT [Catalytic activity/Vol] 30 U/L Normal 10-54 [facility] Comment on above: Order Comment: Speci men Type: BLOOD SPECIMENOrdering Facility: [facility] Address: [address] [place] [address] Performed By: #### 2 777-1, , ####[facility] LABORATORYCLIA [id number] [place] [id number] [place] Anion gap [Moles/Vol] 17 mmol/L Normal 9-18 [facility] Comment on above: Order Comment: Speci men Type: BLOOD SPECIMENOrdering Facility: [facility] Address: [address] [place] [address] Performed By: #### 2 777-1, , ####[facility] LABORATORYCLIA [id number] [place] [address] [place] AST [Catalytic activity/Vol] 27 U/L Normal 14-40 [facility] Comment on above: Order Comment: Speci men Type: BLOOD SPECIMENOrdering Facility: [facility] Address: [address] [place] [address] Performed By: #### 2 777-1, , ####[facility] LABORATORYCLIA [id number] [place] [id number] [place] Bilirubin [Mass/Vol] 0.5 mg/dL Normal 0.2-1.3 [facility] Comment on above: Order Comment: Speci men Type: BLOOD SPECIMENOrdering Facility: [facility] Address: [address] [place] [address] Performed By: #### 2 777-1, , ####[facility] LABORATORYCLIA [id number] [place] [id number] [place] Calcium [Mass/Vol] 9.7 mg/dL Normal 8.5-10.2 [facility] Comment on above: Order Comment: Speci men Type: BLOOD SPECIMENOrdering Facility: [facility] Address: [address] [facility] [place] [address] Performed By: #### 2 777-1, , ####[facility] LABORATORYCLIA [id number] [place] [id number] [place] Chloride [Moles/Vol] 102 mmol/L Normal 97-105 [facility] Comment on above: Order Comment: Speci men Type: BLOOD SPECIMENOrdering Facility: [facility] Address: [address] [facility] [place] [address] Performed By: #### 2 777-1, , ####[facility] LABORATORYCLIA [id number] [place] [id number] [place] CO2 [Moles/Vol] 18 mmol/L Low 22-30 [facility] Comment on above: Order Comment: Speci men Type: BLOOD SPECIMENOrdering Facility: [facility] Address: [address] [place] [address] Performed By: #### 2 777-1, , ####[facility] LABORATORYCLIA [id number] [place] [address] [place] Creatinine [Mass/Vol] 1.86 mg/dL High 0.73-1.22 [facility] Comment on above: Order Comment: Demarcus men Type: BLOOD SPECIMENOrdering Facility: [facility] Address: [address] [place] [address] Performed By: #### 2 777-1, , ####[facility]ORATORYCLIA [id number] [place] [id number] [place] Creatinine and Glomerular filtration rate.predicted panel (S/P/Bld) 39 mL/min/1.73m??? Low >=60 [facility] Comment on above: Order Comment: [facility] Type: BLOOD SPECIMENOrdering Facility: [facility] Address: [address] [place] [address] Result Comment: Bailey mated Glomerular Filtration Rate (eGFR) is calculated using the 2020 CKD-EPI creatinine equation. This equation utilizes serum creatinine, sex, and age as parameters. The creatinine assay has traceable calibration to isotope dilution-mass spectrometry. Refer to KDIGO guidelines for clinical interpretation. In patients with unstable renal function, e.g. those with acute kidney injury, the eGFR may not accurately reflect actual GFR. Performed By: #### 2 777-1, , ####[facility] LABORATORYCLIA [id number] [place] [id number] [place] Glucose [Mass/Vol] 87 mg/dL Normal 74-99 [facility] Comment on above: Order Comment: Speci daniela Type: BLOOD SPECIMENOrdering Facility: [facility] Address: [address] [place] [address] Result Comment: The [place] [employer] (ADA) provides guidance for cutoff values for fasting glucose and random glucose. The ADA defines fasting as no caloric intake for at least 8 hours. Fasting plasma glucose results between 100 to 125 mg/dL indicate increased risk for diabetes (prediabetes).Fasting plasma glucose results greater than or equal to 126 mg/dL meet the criteria for diagnosis of diabetes. In the absence of unequivocal hyperglycemia, results should be confirmed by repeat testing. In a patient with classic symptoms of hyperglycemia or hyperglycemic crisis, random plasma glucose results greater than or equal to 200 mg/dL meet the criteria for diagnosis of diabetes.Reference: Standards of Medical Care in Diabetes 2016, [place] [employer]. Diabetes Care. 2016.39(Suppl 1). Performed By: #### 2 777-1, , ####[facility] LABORATORYCLIA [id number] [place] [id number] [place] Potassium [Moles/Vol] 4.2 mmol/L Normal 3.7-5.1 [facility] Comment on above: Order Comment: Speci men Type: BLOOD SPECIMENOrdering Facility: [facility] Address: [address] [place] [address] Performed By: #### 2 777-1, , ####[facility] LABORATORYCLIA [id number] [place] [id number] [place] Protein [Mass/Vol] 7.6 g/dL Normal 6.3-8.0 [facility] Comment on above: Order Comment: Speci men Type: BLOOD SPECIMENOrdering Facility: [facility] Address: [address] [place] [address] Performed By: #### 2 777-1, , ####[facility] LABORATORYCLIA [id number] [place] [id number] [place] Sodium [Moles/Vol] 137 mmol/L Normal 136-144 [facility] Comment on above: Order Comment: Speci men Type: BLOOD SPECIMENOrdering Facility: [facility] Address: [address] [place] [address] Performed By: #### 2 777-1, , ####[facility] LABORATORYCLIA [id number] [place] [id number] [place] Urea nitrogen [Mass/Vol] 33 mg/dL High 9-24 [facility] Comment on above: Order Comment: Speci men Type: BLOOD SPECIMENOrdering Facility: [facility] Address: [place] [address] Performed By: #### 2 777-1, 68590-8, ####[facility] LABORATORYCLIA [id number] [place] [id number] [place] ECG COMPLETEon 08-08-2023 ECG COMPLETE Normal [facility] Magnesium SerPl-ncon 08-08 Magnesium [Mass/Vol] 2.2 mg/dL Normal 1.7-2.3 [facility] Comment on above: Order Comment: Speci men Type: BLOOD SPECIMENOrdering Facility: [facility] Address: [place] [address] Performed By: #### 2 777-1, 97784-3, ####[facility]ORATORYCLIA [id number] [place] [id number] [place] NUTRITIONon 08-08-2023 NUTRITION Normal [facility] NUTRITION Normal [facility] Phosphate SerPl-ncon 08-08 Phosphate [Mass/Vol] 3.4 mg/dL Normal 2.7-4.8 [facility] Comment on above: Order Comment: Speci men Type: BLOOD SPECIMENOrdering Facility: [facility] Address: [place] [address] Performed By: #### 2 777-1, 44758-3, ####[facility] LABORATORYCLIA [id number] [place] [id number] [place] THERAPY NTon 08-08-2023 THERAPY NT Normal [facility] Urinalysis complete panel (U )on 08-08-2023 Bilirubin Ql (U) Negative Normal Negative [facility] Comment on above: Order Comment: Speci men Type: URINE SPECIMENOrdering Facility: [facility] Address: [place] [address] Performed By: #### 2 4356-8 ####[facility] LABORATORYCLIA [id number] [place] [address] [place] Clarity (Unsp spec) Clear Normal Clear [facility] Comment on above: Order Comment: Speci men Type: URINE SPECIMENOrdering Facility: [facility] Address: [address] [place] [address] Performed By: #### 2 4356-8 ####[facility] LABORATORYCLIA [id number] [place] [address] [place] Color (U) Light Yellow Normal Yellow [facility] Comment on above: Order Comment: Speci men Type: URINE SPECIMENOrdering Facility: [facility] Address: [address] [place] [address] Performed By: #### 2 4356-8 ####[facility] LABORATORYCLIA [id number] [place] [address] [place] Glucose Test strip (U) [Mass/Vol] Negative Normal Trace, Negative [facility] Comment on above: Order Comment: Speci men Type: URINE SPECIMENOrdering Facility: [facility] Address: [address] [place] [address] Performed By: #### 2 4356-8 ####[facility] LABORATORYCLIA [id number] [place] [address] [place] Hemoglobin Ql (U) Negative Normal Negative, Trace [facility] Comment on above: Order Comment: Speci men Type: URINE SPECIMENOrdering Facility: [facility] Address: [address] [place] [address] Performed By: #### 2 4356-8 ####[facility] LABORATORYCLIA [id number] [place] [address] [place] Hyaline casts (Urine sed) [#/Area] 4-10 /LPF Abnormal 0 /LPF [facility] Comment on above: Order Comment: Speci men Type: URINE SPECIMENOrdering Facility: [facility] Address: [address] [place] [address] Performed By: #### 2 4356-8 ####[facility] LABORATORYCLIA [id number] [address] [place] Ketones Ql (U) Trace Normal Negative, Trace [facility] Comment on above: Order Comment: Speci men Type: URINE SPECIMENOrdering Facility: [facility] Address: [address] [place] [address] Performed By: #### 2 4356-8 ####[facility] LABORATORYCLIA [id number] [address] [place] Leukocyte esterase Test strip Ql (U) Negative Normal Negative, 25 Angle/uL [facility] Comment on above: Order Comment: Speci men Type: URINE SPECIMENOrdering Facility: [facility] Address: [address] [place] [address] Performed By: #### 2 4356-8 ####[facility] LABORATORYCLIA [id number] [place] [address] [place] [facility] Nitrite Ql (U) Negative Normal Negative [facility] Comment on above: Order Comment: Speci men Type: URINE SPECIMENOrdering Facility: [facility] Address: [address] [place] [address] Performed By: #### 2 4356-8 ####[facility] LABORATORYCLIA [id number] [place] [address] [place] pH (U) 6.5 [pH] Normal 5.0-8.0 [facility] Comment on above: Order Comment: Speci men Type: URINE SPECIMENOrdering Facility: [facility] Address: [address] [place] [address] Performed By: #### 2 4356-8 ####[facility]ORATORYCLIA [id number] [place] [address] [place] Protein (U) [Mass/Vol] 1+ Abnormal Trace, Negative [facility] Comment on above: Order Comment: Speci men Type: URINE SPECIMENOrdering Facility: [facility] Address: [address] [place] [address] Performed By: #### 2 4356-8 ####[facility] LABORATORYCLIA [id number] [place] [address] [place] RBC LM.HPF (Urine sed) [#/Area] 0-3 /HPF Normal 0-3 /HPF [facility] Comment on above: Order Comment: Speci men Type: URINE SPECIMENOrdering Facility: [facility] Address: [address] [place] [address] Performed By: #### 2 4356-8 ####[facility] LABORATORYCLIA [id number] [place] [address] [place] Specific gravity (U) [Rel density] >1.050 High 1.005-1.03 0 [facility] Comment on above: Order Comment: Speci men Type: URINE SPECIMENOrdering Facility: [facility] Address: [address] [place] [address] Performed By: #### 2 4356-8 ####[facility]ORATORYCLIA [id number] [address] [place] Urobilinogen Ql (U) Negative Normal Negative [facility] Comment on above: Order Comment: Speci men Type: URINE SPECIMENOrdering Facility: [facility] Address: [address] [place] [address] Performed By: #### 2 4356-8 ####[facility] LABORATORYCLIA [id number] [place] [address] [place] WBC LM.HPF (Urine sed) [#/Area] 0-5 /HPF Normal 0-5 /HPF [facility] Comment on above: Order Comment: Speci men Type: URINE SPECIMENOrdering Facility: [facility] Address: [address] [place] [address] Performed By: #### 2 4356-8 ####[facility]ORATORYCLIA [id number] [place] [id number] [place] ALLIED HEALTHon 08-07-2023 ALLIED HEALTH Normal [facility] CBC W Auto Differential pane l (Bld)on 08-07-2023 Basophils (Bld) [#/Vol] 0.06 10*3/uL Normal <0.11 [facility] Comment on above: Order Comment: Speci men Type: BLOOD SPECIMENOrdering Facility: [facility] Address: [address] [place] [address] Performed By: #### 5 7021-8 ####[facility] LABORATORYCLIA [id number] [place] [address] [place] Basophils/100 WBC (Bld) 0.6 % Normal [facility] Comment on above: Order Comment: Speci men Type: BLOOD SPECIMENOrdering Facility: [facility] Address: [address] [place] [address] Performed By: #### 5 7021-8 ####[facility] LABORATORYCLIA [id number] [place] [address] [place] Differential cell count method Nom (Bld) Auto Normal [facility] Comment on above: Order Comment: Speci men Type: BLOOD SPECIMENOrdering Facility: [facility] Address: [address] [place] [address] Performed By: #### 5 7021-8 ####[facility] LABORATORYCLIA [id number] [place] [address] [place] Eosinophils (Bld) [#/Vol] 0.08 10*3/uL Normal <0.46 [facility] Comment on above: Order Comment: Speci men Type: BLOOD SPECIMENOrdering Facility: [facility] Address: [address] [place] [address] Performed By: #### 5 7021-8 ####[facility] LABORATORYCLIA [id number] [address] Eosinophils/100 WBC (Bld) 0.8 % Normal [facility] Comment on above: Order Comment: Speci men Type: BLOOD SPECIMENOrdering Facility: [facility] Address: [address] [place] [address] Performed By: #### 5 7021-8 ####[facility] LABORATORYCLIA [id number] [address] [place] Erythrocyte distribution width (RBC) [Ratio] 11.9 % Normal 11.5-15.0 [facility] Comment on above: Order Comment: Speci men Type: BLOOD SPECIMENOrdering Facility: [facility] Address: [address] [place] [address] Performed By: #### 5 7021-8 ####[facility] LABORATORYCLIA [id number] [place] [id number] [place] Hematocrit (Bld) [Volume fraction] 43.6 % Normal 39.0-51.0 [facility] Comment on above: Order Comment: Speci men Type: BLOOD SPECIMENOrdering Facility: [facility] Address: [address] [place] [address] Performed By: #### 5 7021-8 ####[facility] LABORATORYCLIA [id number] [place] [address] [place] Hemoglobin (Bld) [Mass/Vol] 14.9 g/dL Normal 13.0-17.0 [facility] Comment on above: Order Comment: Speci men Type: BLOOD SPECIMENOrdering Facility: [facility] Address: [address] [place] [address] Performed By: #### 5 7021-8 ####[facility] LABORATORYCLIA [id number] [place] [address] [place] Immature granulocytes (Bld) [#/Vol] 0.10 10*3/uL High <0.10 [facility] Comment on above: Order Comment: Speci men Type: BLOOD SPECIMENOrdering Facility: [facility] Address: [address] [place] [address] Performed By: #### 5 7021-8 ####[facility] LABORATORYCLIA [id number] [place] [address] [place] Immature granulocytes/100 WBC (Bld) 1.0 % Normal [facility] Comment on above: Order Comment: Speci men Type: BLOOD SPECIMENOrdering Facility: [facility] Address: [address] [place] [address] Performed By: #### 5 7021-8 ####[facility] LABORATORYCLIA [id number] [place] [id number] [place] Lymphocytes (Bld) [#/Vol] 1.20 10*3/uL Normal 1.00-4.00 [facility] Comment on above: Order Comment: Speci men Type: BLOOD SPECIMENOrdering Facility: [facility] Address: [address] [place], [place] [address] Performed By: #### 5 7021-8 ####[facility]ORATORYCLIA [id number] [place] [address] [place] Lymphocytes/100 WBC (Bld) 12.1 % Normal [facility] Comment on above: Order Comment: Speci men Type: BLOOD SPECIMENOrdering Facility: [facility] Address: [address] [place] [address] Performed By: #### 5 7021-8 ####[facility] LABORATORYCLIA [id number] [place] [address] [place] MCH (RBC) [Entitic mass] 29.4 pg Normal 26.0-34.0 [facility] Comment on above: Order Comment: Speci men Type: BLOOD SPECIMENOrdering Facility: [facility] Address: [address] [place] [address] Performed By: #### 5 7021-8 ####[facility] LABORATORYCLIA [id number] [place] [address] [place] MCHC (RBC) [Mass/Vol] 34.2 g/dL Normal 30.5-36.0 [facility] Comment on above: Order Comment: Speci men Type: BLOOD SPECIMENOrdering Facility: [facility] Address: [address] [place] [address] Performed By: #### 5 7021-8 ####[facility] LABORATORYCLIA [id number] [place] [address] [place] MCV (RBC) [Entitic vol] 86.0 fL Normal 80.0-100.0 [facility] Comment on above: Order Comment: Speci men Type: BLOOD SPECIMENOrdering Facility: [facility] Address: [address] [place] [address] Performed By: #### 5 7021-8 ####[facility]ORATORYCLIA [id number] [address] [place] Monocytes (Bld) [#/Vol] 0.97 10*3/uL High <0.87 [facility] Comment on above: Order Comment: Speci men Type: BLOOD SPECIMENOrdering Facility: [facility] Address: [address] [place] [address] Performed By: #### 5 7021-8 ####[facility] LABORATORYCLIA [id number] [place] [id number] [place] Monocytes/100 WBC (Bld) 9.7 % Normal [facility] Comment on above: Order Comment: Speci men Type: BLOOD SPECIMENOrdering Facility: [facility] Address: [address] [place] [address] Performed By: #### 5 7021-8 ####[facility] LABORATORYCLIA [id number] [place] [id number] [place] Neutrophils (Bld) [#/Vol] 7.54 10*3/uL High 1.45-7.50 [facility] Comment on above: Order Comment: Speci men Type: BLOOD SPECIMENOrdering Facility: [facility] Address: [address] [place] [address] Performed By: #### 5 7021-8 ####[facility]ORATORYCLIA [id number] [place] [id number] [place] Neutrophils/100 WBC (Bld) 75.8 % Normal [facility] Comment on above: Order Comment: Speci men Type: BLOOD SPECIMENOrdering Facility: [facility] Address: [address] [place] [address] Performed By: #### 5 7021-8 ####[facility] LABORATORYCLIA [id number] [place] [id number] [place] Nucleated RBC (Bld) [#/Vol] 10*3/uL Normal <0.01 [facility] Comment on above: Order Comment: Speci men Type: BLOOD SPECIMENOrdering Facility: [facility] Address: [address] [place] [address] Performed By: #### 5 7021-8 ####[facility] LABORATORYCLIA [id number] [place] [id number] [place] Nucleated RBC/100 WBC (Bld) [Ratio] 0.0 /100 WBC Normal [facility] Comment on above: Order Comment: Speci men Type: BLOOD SPECIMENOrdering Facility: [facility] Address: [address] [place] [address] Performed By: #### 5 7021-8 ####[facility] LABORATORYCLIA [id number] [place] [id number] [place] Platelet mean volume (Bld) [Entitic vol] 11.6 fL Normal 9.0-12.7 [facility] Comment on above: Order Comment: Speci men Type: BLOOD SPECIMENOrdering Facility: [facility] Address: [address] [place] [address] Performed By: #### 5 7021-8 ####[facility] LABORATORYCLIA [id number] [place] [id number] [place] Platelets (Bld) [#/Vol] 374 10*3/uL Normal 150-400 [facility] Comment on above: Order Comment: Speci men Type: BLOOD SPECIMENOrdering Facility: [facility] Address: [address] [place] [address] Performed By: #### 5 7021-8 ####[facility] LABORATORYCLIA [id number] [place] [id number] [place] RBC (Bld) [#/Vol] 5.07 10*6/uL Normal 4.20-6.00 [facility] Comment on above: Order Comment: Speci men Type: BLOOD SPECIMENOrdering Facility: [facility] Address: [address] [place] [address] Performed By: #### 5 7021-8 ####[facility] LABORATORYCLIA [id number] [place] [id number] [place] WBC (Bld) [#/Vol] 9.95 10*3/uL Normal 3.70-11.00 [facility] Comment on above: Order Comment: Speci men Type: BLOOD SPECIMENOrdering Facility: [facility] Address: [address] [place] [address] Performed By: #### 5 7021-8 ####[facility] LABORATORYCLIA [id number] [place] [id number] [place] CNOVon 08-07-2023 CNOV Office Visit (GENNOM ) -- AISHA JULIEN ([id number]) 1955 M Date Time Provider Department 08/07/23 2:00 PM [facility] During your visit today, we recorded the following information about you: Pulse Blood pressure Weight 139/minute 94/63 63.5 kg Cleveland Alberts MD 08/07/2023 2:42 PM Signed New Patient Consult REASON FOR VISIT Consultation requested by Nohemy Linder for an opinion regarding Aisha Julien. My final recommendations will be communicated back to the requesting physician by way of shared Medical record or letter to requesting physician via [place] mail. History of Present Illness: Aisha Julien is a 68 year old male who presented to an outside hospital 2 weeks ago with symptoms of gastric outlet obstruction. He received an upper endoscopy by Dr. 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 This was biopsied but pathology returned negative for malignancy. During that admission he had a CT abdomen/pelvis without contrast due to dehydration and elevated creatinine. This demonstrated a lesion in the uncinate process of the pancreas versus the third portion of the duodenum with obstruction at the site. Given the absence of contrast it is difficult to study the origin of the mass and its relationship to the SMA/SMV. The patient continued to have progressive obstructive symptoms. He can only tolerate small amounts of clear liquids. Otherwise he continues to have hiccups, burping, and frequent vomiting. The emesis alternates between bilious and yellow in color. He has been continuously losing weight since early June when the symptoms started. He describes episodes of low blood pressure associated with dizziness and near syncope concerning for hypoglycemia. He has not had any abdominal surgery before. Family history of ovarian cancer in mother, lived to her 90s. FUNCTIONAL STATUS: Climb a flight of stairs or walk up a hill (5.50 METs) PAST MEDICAL HISTORY Diagnosis Date Essential hypertension GERD (gastroesophageal reflux disease) PAST SURGICAL HISTORY Procedure Laterality Date ARTHROSCOPY KNEE DIAGNOSTIC W/WO SYNOVIAL BX SPX Bilateral FAMILY HISTORY Problem Relation Age of Onset Colon Cancer No Family History Social History Tobacco Use Smoking status: Never Smokeless tobacco: Never Vaping Use Vaping Use: Former Substance Use Topics Alcohol use: Not Currently Drug use: Not Currently MEDICATIONS Current Outpatient Medications Medication Sig Dispense Refill potassium (POTASSIMIN ORAL) Take by mouth. dilTIAZem CD (CARDIZEM CD, CARTIA XT) 180 mg 24 hr capsule Take 240 mg by mouth every morning. metoprolol succinate ER (TOPROL XL) 100 mg Take 50 mg by mouth one time only. tamsulosin (FLOMAX) 0.4 mg Take 0.4 mg by mouth one time only. finasteride (PROSCAR) 5 mg tablet Take 5 mg by mouth every other day. pantoprazole DR (PROTONIX) 40 mg tablet Take 1 tablet by mouth every afternoon. ondansetron (ZOFRAN) 4 mg tablet TAKE 1 TABLET BY MOUTH EVERY 8 HOURS NEEDED FOR NAUSEA OR FOR VOMITING FOR UP TO 7 DAYS losartan (COZAAR) 100 mg tablet Take 100 mg by mouth every morning. (Patient not taking: Reported on 08/07/2023) No current facility-administered medications for this visit. CURRENT ALLERGIES ALLERGIES No Known Allergies REVIEW OF SYSTEMS PAIN ASSESSMENT: General: No weight loss, malaise or fevers. Neuro: No Hx of stroke or seizures Respiratory: No history of current cough or dyspnea, or pneumonia in the past 6 weeks. No history of respiratory/pulmonary symptoms or problems Cardiovascular: Hypertension on medication GI: See HPI : No history of UTI in past 6 weeks. No history of renal failure. Not currently on or requiring dialysis. No history of symptoms or problems. Endocrine: No history of diabetes. Has not taken steroids within the past 30 days. No history of endocrinological symptoms or problems. Hematology: No history of bleeding or clotting disorder. Pt is not taking anti-coagulation or platelet medications. No history of hematological symptoms or problems. Oncology: No history of CA metastasis, chemo within 30 days, or radiotherapy within 90 days. Has not lost 10% of body wt in 6 months. No history of oncological symptoms or problems. Psych: No history of psychiatric symptoms or problems. Musculoskeletal: Negative for joint pain or swelling, back pain or muscle pain. Skin: Negative for lesions, rash and itching. Anemia: No PHYSICAL EXAMINATION BP 94/63 Pulse 139 Wt 140 lb (63.5kg) General Appearance: Well appearing, alert, in no acute distress, well-hydrated, well nourished. Skin: Skin color, texture, turgor normal, no suspicious rashes or lesions Head: Normocephalic, no masses, lesions, tenderness or abnormalities Oropharynx: Lips, mucosa, and tongue normal, teeth and gum (more content not included)... Normal [facility] CRP SerPl-mCncon 08-07-2023 CRP [Mass/Vol] mg/L Normal <0.9 [facility] Comment on above: Order Comment: Speci men Type: BLOOD SPECIMENOrdering Facility: [facility] Address: [address] [place] [address] Performed By: #### 2 276-4, 1987-12 ####[facility] LABORATORYCLIA [id number] [place] [address] [place] Comprehensive metabolic 2000 panelon 08-07-2023 Albumin [Mass/Vol] 4.6 g/dL Normal 3.9-4.9 [facility] Comment on above: Order Comment: Speci men Type: BLOOD SPECIMENOrdering Facility: [facility] Address: [address] [place] [address] Performed By: #### 3 040-3, , ####[facility] LABORATORYCLIA [id number] [place] [id number] [place] ALP [Catalytic activity/Vol] 127 U/L High 38-113 [facility] Comment on above: Order Comment: Speci men Type: BLOOD SPECIMENOrdering Facility: [facility] Address: [place] [address] Performed By: #### 3 040-3, , ####[facility]ORATORYCLIA [id number] [place] [id number] [place] ALT [Catalytic activity/Vol] 35 U/L Normal 10-54 [facility] Comment on above: Order Comment: Speci men Type: BLOOD SPECIMENOrdering Facility: [facility] Address: [address] [place], [place] [address] Performed By: #### 3 040-3, , ####[facility] LABORATORYCLIA [id number] [place] [address] [place] Anion gap [Moles/Vol] 18 mmol/L Normal 9-18 [facility] Comment on above: Order Comment: Speci men Type: BLOOD SPECIMENOrdering Facility: [facility] Address: [address] [place] [address] Performed By: #### 3 040-3, , ####[facility] LABORATORYCLIA [id number] [place] [address] [place] AST [Catalytic activity/Vol] 30 U/L Normal 14-40 [facility] Comment on above: Order Comment: Speci men Type: BLOOD SPECIMENOrdering Facility: [facility] Address: [address] [place] [address] Performed By: #### 3 040-3, , ####[facility] LABORATORYCLIA [id number] [place] [id number] [place] Bilirubin [Mass/Vol] 0.5 mg/dL Normal 0.2-1.3 [facility] Comment on above: Order Comment: Speci men Type: BLOOD SPECIMENOrdering Facility: [facility] Address: [address] [address] Performed By: #### 3 040-3, , ####[facility] LABORATORYCLIA [id number] [place] [address] [place] Calcium [Mass/Vol] 9.9 mg/dL Normal 8.5-10.2 [facility] Comment on above: Order Comment: Speci men Type: BLOOD SPECIMENOrdering Facility: [facility] Address: [address] [address] Performed By: #### 3 040-3, , ####[facility] LABORATORYCLIA [id number] [place] [address] [place] Chloride [Moles/Vol] 93 mmol/L Low 97-105 [facility] Comment on above: Order Comment: Speci men Type: BLOOD SPECIMENOrdering Facility: [facility] Address: [address] [place] [address] Performed By: #### 3 040-3, , ####[facility] LABORATORYCLIA [id number] [place] [id number] [place] CO2 [Moles/Vol] 19 mmol/L Low 22-30 [facility] Comment on above: Order Comment: Speci men Type: BLOOD SPECIMENOrdering Facility: [facility] Address: [address] [place] [address] Performed By: #### 3 040-3, , ####[facility] LABORATORYCLIA [id number] [place] [id number] [place] Creatinine [Mass/Vol] 2.20 mg/dL High 0.73-1.22 [facility] Comment on above: Order Comment: Speci men Type: BLOOD SPECIMENOrdering Facility: [facility] Address: [address] [place] [address] Performed By: #### 3 040-3, , ####[facility] LABORATORYCLIA [id number] [place] [id number] [place] Creatinine and Glomerular filtration rate.predicted panel (S/P/Bld) 32 mL/min/1.73m??? Low >=60 [facility] Comment on above: Order Comment: Speci men Type: BLOOD SPECIMENOrdering Facility: [facility] Address: [address] [place] [address] Result Comment: Bailey mated Glomerular Filtration Rate (eGFR) is calculated using the 2020 CKD-EPI creatinine equation. This equation utilizes serum creatinine, sex, and age as parameters. The creatinine assay has traceable calibration to isotope dilution-mass spectrometry. Refer to KDIGO guidelines for clinical interpretation. In patients with unstable renal function, e.g. those with acute kidney injury, the eGFR may not accurately reflect actual GFR. Performed By: #### 3 040-3, 42749-1 ####[facility] LABORATORYCLIA [id number] [place] [address] [place] Glucose [Mass/Vol] 108 mg/dL High 74-99 [facility] Comment on above: Order Comment: Speci men Type: BLOOD SPECIMENOrdering Facility: [facility] Address: [address] [place] [address] Result Comment: The [place] [employer] (ADA) provides guidance for cutoff values for fasting glucose and random glucose. The ADA defines fasting as no caloric intake for at least 8 hours. Fasting plasma glucose results between 100 to 125 mg/dL indicate increased risk for diabetes (prediabetes).Fasting plasma glucose results greater than or equal to 126 mg/dL meet the criteria for diagnosis of diabetes. In the absence of unequivocal hyperglycemia, results should be confirmed by repeat testing. In a patient with classic symptoms of hyperglycemia or hyperglycemic crisis, random plasma glucose results greater than or equal to 200 mg/dL meet the criteria for diagnosis of diabetes.Reference: Standards of Medical Care in Diabetes 2016, [place] [employer]. Diabetes Care. 2016.39(Suppl 1). Performed By: #### 3 040-3, ####[facility] LABORATORYCLIA [id number] [place] [id number] [place] Potassium [Moles/Vol] 3.7 mmol/L Normal 3.7-5.1 [facility] Comment on above: Order Comment: Speci men Type: BLOOD SPECIMENOrdering Facility: [facility] Address: [address] [place] [address] Performed By: #### 3 040-3, , ####[facility] LABORATORYCLIA [id number] [place] [address] [place] Protein [Mass/Vol] 8.4 g/dL High 6.3-8.0 [facility] Comment on above: Order Comment: Speci men Type: BLOOD SPECIMENOrdering Facility: [facility] Address: [address] [place] [address] Performed By: #### 3 040-3, , ####[facility] LABORATORYCLIA [id number] [place] [id number] [place] Sodium [Moles/Vol] 130 mmol/L Low 136-144 [facility] Comment on above: Order Comment: Speci men Type: BLOOD SPECIMENOrdering Facility: [facility] Address: [address] [place] [address] Performed By: #### 3 040-3, 75549-6, 29469-3 ####[facility]ORATORYCLIA [id number] [place] [id number] [place] Urea nitrogen [Mass/Vol] 37 mg/dL High 9-24 [facility] Comment on above: Order Comment: Speci men Type: BLOOD SPECIMENOrdering Facility: [facility] Address: [address] [place] [address] Performed By: #### 3 040-3, , ####[facility]ORATORYCLIA [id number] [place] [id number] [facility] ED PROV NOTEon 08-07-2023 ED PROV NOTE Normal [facility] ED Triage Noteon 08-07-2023 ED Triage Note Normal [facility] Ferritin SerPl-mCncon 2022 Ferritin [Mass/Vol] 723.9 ng/mL High 30.3-565.7 [facility] Comment on above: Order Comment: Speci men Type: BLOOD SPECIMENOrdering Facility: [facility] Address: [address] [place] [address] Performed By: #### 2 276-4, 1987-12 ####[facility]ORATORYCLIA [id number] [place] [id number] [facility] [place] HISTORY PHYSICALon HISTORY PHYSICAL Normal [facility] HISTORY PHYSICAL HNO ID: [id number] Author: Cleveland Alberts MD Service: ? Author Type: Physician Type: HANDP Filed: 08/07/2023 2:42 PM Note Text: New Patient Consult REASON FOR VISIT Consultation requested by Nohemy Linder for an opinion regarding Aisha Julien. My final recommendations will be communicated back to the requesting physician by way of shared Medical record or letter to requesting physician via [place] mail. History of Present Illness: Aisha Julien is a 68 year old male who presented to an outside hospital 2 weeks ago with symptoms of gastric outlet obstruction. He received an upper endoscopy by Dr. 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 This was biopsied but pathology returned negative for malignancy. During that admission he had a CT abdomen/pelvis without contrast due to dehydration and elevated creatinine. This demonstrated a lesion in the uncinate process of the pancreas versus the third portion of the duodenum with obstruction at the site. Given the absence of contrast it is difficult to study the origin of the mass and its relationship to the SMA/SMV. The patient continued to have progressive obstructive symptoms. He can only tolerate small amounts of clear liquids. Otherwise he continues to have hiccups, burping, and frequent vomiting. The emesis alternates between bilious and yellow in color. He has been continuously losing weight since early June when the symptoms started. He describes episodes of low blood pressure associated with dizziness and near syncope concerning for hypoglycemia. He has not had any abdominal surgery before. Family history of ovarian cancer in mother, lived to her 90s. FUNCTIONAL STATUS: Climb a flight of stairs or walk up a hill (5.50 METs) PAST MEDICAL HISTORY Diagnosis Date Essential hypertension GERD (gastroesophageal reflux disease) PAST SURGICAL HISTORY Procedure Laterality Date ARTHROSCOPY KNEE DIAGNOSTIC W/WO SYNOVIAL BX SPX Bilateral FAMILY HISTORY Problem Relation Age of Onset Colon Cancer No Family History Social History Tobacco Use Smoking status: Never Smokeless tobacco: Never Vaping Use Vaping Use: Former Substance Use Topics Alcohol use: Not Currently Drug use: Not Currently MEDICATIONS Current Outpatient Medications Medication Sig Dispense Refill potassium (POTASSIMIN ORAL) Take by mouth. dilTIAZem CD (CARDIZEM CD, CARTIA XT) 180 mg 24 hr capsule Take 240 mg by mouth every morning. metoprolol succinate ER (TOPROL XL) 100 mg Take 50 mg by mouth one time only. tamsulosin (FLOMAX) 0.4 mg Take 0.4 mg by mouth one time only. finasteride (PROSCAR) 5 mg tablet Take 5 mg by mouth every other day. pantoprazole DR (PROTONIX) 40 mg tablet Take 1 tablet by mouth every afternoon. ondansetron (ZOFRAN) 4 mg tablet TAKE 1 TABLET BY MOUTH EVERY 8 HOURS NEEDED FOR NAUSEA OR FOR VOMITING FOR UP TO 7 DAYS losartan (COZAAR) 100 mg tablet Take 100 mg by mouth every morning. (Patient not taking: Reported on 08/07/2023) No current facility-administered medications for this visit. CURRENT ALLERGIES ALLERGIES No Known Allergies REVIEW OF SYSTEMS PAIN ASSESSMENT: General: No weight loss, malaise or fevers. Neuro: No Hx of stroke or seizures Respiratory: No history of current cough or dyspnea, or pneumonia in the past 6 weeks. No history of respiratory/pulmonary symptoms or problems Cardiovascular: Hypertension on medication GI: See HPI : No history of UTI in past 6 weeks. No history of renal failure. Not currently on or requiring dialysis. No history of symptoms or problems. Endocrine: No history of diabetes. Has not taken steroids within the past 30 days. No history of endocrinological symptoms or problems. Hematology: No history of bleeding or clotting disorder. Pt is not taking anti-coagulation or platelet medications. No history of hematological symptoms or problems. Oncology: No history of CA metastasis, chemo within 30 days, or radiotherapy within 90 days. Has not lost 10% of body wt in 6 months. No history of oncological symptoms or problems. Psych: No history of psychiatric symptoms or problems. Musculoskeletal: Negative for joint pain or swelling, back pain or muscle pain. Skin: Negative for lesions, rash and itching. Anemia: No PHYSICAL EXAMINATION BP 94/63 Pulse 139 Wt 140 lb (63.5kg) General Appearance: Well appearing, alert, in no acute distress, well-hydrated, well nourished. Skin: Skin color, texture, turgor normal, no suspicious rashes or lesions Head: Normocephalic, no masses, lesions, tenderness or abnormalities Oropharynx: Lips, mucosa, and tongue normal, teeth and gums normal, oropharynx normal Neck: Not examined Lungs: Unlabored on room air Heart: Not examined Extremities: No deformities, edema, skin discoloration, clubbing or cyanosis. Good capillary refill. Neuro: Gait normal. Reflexes normal and (more content not included)... Normal [facility] Lipase SerPl-cCncon 08-07-20 23 Lipase [Catalytic activity/Vol] 154 U/L High 16-61 [facility] Comment on above: Order Comment: Speci men Type: BLOOD SPECIMENOrdering Facility: [facility] Address: [address] [place] [address] Performed By: #### 3 040-3, 39359-8, 22602-7 ####[facility]ORATORYCLIA [id number] [place] [id number] [facility] Magnesium SerPl-mCncon 08-07 Magnesium [Mass/Vol] 1.6 mg/dL Low 1.7-2.3 [facility] Comment on above: Order Comment: Arben daniela Type: BLOOD SPECIMENOrdering Facility: [facility] Address: [address] [place] [address] Performed By: #### 3 040-3, , ####[facility] LABORATORYCLIA [id number] [address] PT panel Coag (PPP)on 2022 INR Coag (PPP) [Relative time] 1.0 {INR} Normal 0.9-1.3 [facility] Comment on above: Order Comment: Arben suarez Type: BLOOD SPECIMENOrdering Facility: [facility] Address: [address] [place] [address] Result Comment: Karissa min K Antagonist (VKA) Therapeutic Range: INR 2 to 3 (Target INR of 2.5)Note: For patients treated with VKA drugs, such as warfarin, the [place] [employer] 2012 Guideline recommends a therapeutic INR range of 2 to 3 (target INR of 2.5). This recommendation includes high-risk patients with antiphospholipid syndrome with previous arterial or venous thromboembolism, current-generation mechanical or bioprosthetic aortic heart valve replacement.Note: Patients with mechanical aortic valve replacement and additional risk factors for thromboembolic events (atrial fibrillation, previous thromboembolism, LV dysfunction, hypercoagulable conditions) or an older generation mechanical AVR (i.e., ball in-Cage) or any mechanical MVR should have a INR therapeutic range of 2.5 to 3.5 (target INR of 3).Lizy GH, et al. Chest 2012, 141:7S-47SNishpalmer RA, et al. [facility] 2017, 70: 252-289 Performed By: #### 3 4528-0, 51693-7 ####[facility] LABORATORYCLIA [id number] [place] [id number] [place] PT Coag (PPP) [Time] 11.6 s Normal 9.7-13.0 [facility] Comment on above: Order Comment: Speci men Type: BLOOD SPECIMENOrdering Facility: [facility] Address: [address] [place] [address] Performed By: #### 3 4528-0, 43051-0 ####[facility] LABORATORYCLIA [id number] [place] [address] [place] Prealb SerPl-mCncon 08-07-20 23 Prealbumin [Mass/Vol] 18 mg/dL Normal 17-36 [facility] Comment on above: Order Comment: Speci men Type: BLOOD SPECIMENOrdering Facility: [facility] Address: [address] [place] [address] Performed By: #### 3 034-6, 40924-2 ####[facility] LABCLIA [id number] [address] [place] TYPE + SCREENon 08-07-2023 ABO A Normal [facility] Comment on above: Order Comment: Speci men Type: BLOOD SPECIMENOrdering Facility: [facility] Address: [address] [place] [address] Performed By: #### T SCR ####[facility] BANKCLIA [id number] [place] [address] [place] HISTORICAL AB SCR STATUS Negative [facility] Comment on above: Order Comment: Speci men Type: BLOOD SPECIMENOrdering Facility: [facility] Address: [address] [place] [address] Performed By: #### T SCR ####[facility] BANKCLIA [id number] [place] [address] [place] Rh Nom (Bld) Positive Normal [facility] Comment on above: Order Comment: Speci men Type: BLOOD SPECIMENOrdering Facility: [facility] Address: [address] [place] [address] Performed By: #### T SCR ####[facility] BLOOD BANKCLIA [id number] [address] OF [facility] TYPE AND SCREEN EXPIRATION 08/10/2023 23:59 Normal [facility] Comment on above: Order Comment: Speci men Type: BLOOD SPECIMENOrdering Facility: [facility] Address: [place] [address] Performed By: #### T SCR ####[facility] BLOOD BANKCLIA [id number] [address] OF [place] Transferrin SerPl-mCncon Transferrin [Mass/Vol] 250 mg/dL Normal 200-360 [facility] Comment on above: Order Comment: Speci men Type: BLOOD SPECIMENOrdering Facility: [facility] Address: [place] [address] Performed By: #### 3 034-6, 66015-4 ####[facility] LABCLIA [id number] [address] OF [place] XR ABDOMEN 1V SUPINEon 08-07 XR ABDOMEN 1V SUPINE Normal [facility] aPTT PPPon 08-07-2023 aPTT Coag (PPP) [Time] 29.9 s Normal 23.0-32.4 [facility] Comment on above: Order Comment: Speci men Type: BLOOD SPECIMENOrdering Facility: [facility] Address: [place] [address] Performed By: #### 3 4528-0, 64498-7 ####[facility] LABORATORYCLIA [id number] [address] OF [place] CNPAisha 08-05-2023 [place] Telephone (PATRICIA) -- AISHA JULIEN ([id number]) 1955 M Date Time Provider Department 08/05/23 BETY AMIN During your visit today, we recorded the following information about you: Ирина Samuel RN 08/05/2023 4:35 PM Signed Referred from Dr. Linder for EUS w/ FNA for duodenal mass. Dr. Amin please review and advise. H AND P, meds updated in Epic. Will also forward to Dr. Alberts and Jessie as pt has an appt with him on 08/07/2023 Thank you, Ирина Samuel RN 07/24/2023 CTAP w/o contrast: Lung Bases: [Bibasilar scarring.] Organs:Suboptimal evaluation due to lack of IV contrast. Liver gallbladder spleen pancreas and adrenal glands all appear unremarkable. The subcentimeter lesions involving the liver on the prior study are occult today. Kidneys demonstrate no stones or hydronephrosis. Abdominal aorta appears normal in caliber.[ GI: Stomach is distended with fluid. There appears to be distention involving the first and second portions of the duodenum with a small bowel mass involving the third portion of the duodenum extending into the mesentery with presumed bulky lymphadenopathy. The mass is difficult to measure but appears to measure 3.4 x 3.4 cm in greatest axial dimensions. The lymphadenopathy involving the mesentery extends inferiorly some of which appears partially calcified. It is difficult to say whether this small bowel mass extends from or invade the pancreatic head/uncinate process. [Distal small bowel appears nondilated. Mesenteric engorgement is seen. Fluid is seen within the colon without abnormal wall thickening or inflammatory change. Pelvis:[Prostatomegaly. Urinary bladder demonstrates no focal abnormality.] Peritoneum/Retroperitoneum :No free air or free fluid. Left periaortic lymphadenopathy is seen largest lymph node measures 18 mm in short axis.[ Abd wall/Bones:Abdominal wall demonstrates no acute findings. Lipoma is noted involving the right gluteus carole muscle. Osseous structures demonstrate degenerative change. Remote right-sided rib fractures. IMPRESSION: A mass is noted in the region of the third portion the duodenum with associated obstruction of the stomach and proximal duodenum. The mass is difficult to measure but measures approximately 3.4 x 3.4 cm in greatest axial dimensions. There appears to be adjacent bulky lymphadenopathy involving the mesentery extending inferiorly some of which appears partially calcified. There also appears to be left periaortic lymphadenopathy. It is difficult to say with certainty whether this mass arises from the small bowel or pancreas. Given the partially calcified lymphadenopathy a carcinoid tumor is suspected. Further evaluation with endoscopy and EUS is suggested. Findings have progressed since the prior study. Mesenteric engorgement is seen. Given the size of the mass, portal vein/SMV thrombosis cannot be excluded. 07/25/2023 Labs: H/H 11.3/33.8, MCV 89.0 other naik CBC normal. LFT's normal BUN 44, creatinine 2.86 07/25/[address] Linder: Narrow duodenal lumen in the third portion suggestive of external mass effect/compression. Erythematous mucosa in antrum. LA grade b esophagitis. A. Duodenal biopsy: - Duodenal mucosa with generally preserved mucosal glandular architecture except mild nodular reactive proliferations of the Ysabel's glands, minor gastric metaplasia, and only mild insignificant stromal chronic inflammation, otherwise also without erosion, glandular atypia, any obvious or abnormal lymphocytic exocytosis, any villous blunting, or any features of celiac sprue identified B. Gastric biopsy: - Oxyntic mucosa with only minor insignificant chronic inflammation including minor suggested chronic erosion with occasionally admixed eosinophils in adjacent lamina propria, otherwise without acute inflammation, active erosion, intestinal metaplasia, or glandular atypia identified - H. pylori immunostain with appropriate control is also negative for identified Helicobacter organism or infection Bety Amin MD 08/10/2023 3:39 PM Signed Ирина: I reviewed the CT-scan report and the EGD results done by Dr. Linder. Seen in the office by Dr. Skinner 08/07/2023. Advised to go to ER and admitted. Update me please. I do not see GI consult or evaluation. MD Lizzie Chicas Dawn, RN 08/11/2023 8:58 AM Signed No GI consult thus far. Per Gen Surg progress note yesterday: Assessment and Plan: Aisha Julien is a 68 year old male with history of cardiac arrythmia, MR, TR, BPH, chronic venous insufficiency, HTN and GERD who presents gastric outlet obstruction. He has been deconditioned over the past few weeks due to poor nutrition so we will consult nutrition team to PPN to optimize him as soon as possible for surgery early next week. Neuro/Pain: Continue current pain control regim (more content not included)... Normal [facility] Telephone ([id number]) -- AISHA JULIEN ([id number]) 1955 M Date Time Provider Department 08/05/23 [facility] [id number] During your visit today, we recorded the following information about you: Jessie Zamora RN 08/05/2023 10:45 AM Signed Called patient and spoke with him about coming for a visit with Dr. Alberts. Patient understands he was referred by Dr. Linder. Asked patient to bring any past medical history with him. Patient understanding and thankful for call and appointment. *Requested images to be pushed from [facility] 08/05. Also faxed release of information to patients PCP - Dr. Cannon in [facility]. Allergies As of Date: 08/05/2023 (No Known Allergies) Date Reviewed: Never Reviewed Reason for Visit: Appointment [186] Prescriptions as of 08/05/2023 - dilTIAZem CD (CARDIZEM CD, CARTIA XT) 180 mg 24 hr capsule Take 240 mg by mouth every morning. - metoprolol succinate ER (TOPROL XL) 100 mg Take 50 mg by mouth one time only. - tamsulosin (FLOMAX) 0.4 mg Take 0.4 mg by mouth one time only. - losartan (COZAAR) 100 mg tablet Take 100 mg by mouth every morning. - finasteride (PROSCAR) 5 mg tablet Take 5 mg by mouth every other day. Problem List As Of Date: 08/05/2023 (None) Encounter Status:Closed by JESSIE ZAMORA on 08/05/23 [facility] Judy [id number][facility] -- AISHA JULIEN ([id number]) 1955 M Date Time Provider Department 07/29/23 [facility] [id number] During your visit today, we recorded the following information about you: Vicki Rosario 07/29/2023 3:53 PM Addendum New patient referral from Dr. Linder's office ([phone]) to Dr. Alberts for Duodenal Mass. Contacted the office to resend records. Please advise on scheduling Allergies As of Date: 07/29/2023 (Not on File) Date Reviewed: Never Reviewed Reason for Visit: Appointment [186] Problem List As Of Date: 07/29/2023 (None) Encounter Status:Closed by VICKI ROSARIO on 07/29/23 Normal [facility] Basic Metabolic Panelon 12-0 Anion gap [Moles/Vol] 11.9 mmol/L Normal 6.0-15.0 [facility] Comment on above: Performed By: #### C SADAF, BMP ####[facility] [place] [address] [facility] Calcium [Mass/Vol] 8.5 mg/dL Low 8.6-10.3 [facility] Comment on above: Performed By: #### C SADAF, BMP ####[facility] [place] [address] [facility] Chloride [Moles/Vol] 105 mmol/L Normal 98-107 [facility] Comment on above: Performed By: #### C BC, BMP ####[facility] [id number] [place] [address] [facility] CO2 [Moles/Vol] 26.0 mmol/L Normal 21.0-31.0 [facility] Comment on above: Performed By: #### C BC, BMP ####[facility] [place] [address] [facility] Creatinine [Mass/Vol] 1.71 mg/dL Significan t change up 0.70-1.30 [facility] Comment on above: Performed By: #### C BC, BMP ####[place] [address] [place] [address] [place] Creatinine Clr Calc Pharmacy 41.35 [facility] Comment on above: Result Comment: PERF ORMED BY: [facility] [address] [id number] PATHOLOGIST PRODUCTION OFFICER RAHEL TREVINO M.D. Performed By: #### C BC, BMP ####[address] [place] [place] [address] [place] GFR/1.73 sq M.predicted MDRD (S/P/Bld) [Vol rate/Area] 43.064 mL/min/{1.73_m2} [facility] Comment on above: Performed By: #### C BC, BMP ####[place] [address] [place] [id number] [facility] Glucose [Mass/Vol] 115 mg/dL High 70-100 [facility] Comment on above: Result Comment: [place] Glucose Reference Range is dependent on time and content of last meal. Glucose of more than 200 mg/dL in a nonstressed, ambulatory subject supports the diagnosis of Diabetes Mellitus. ADA recommended reference range Performed By: #### C BC, BMP ####[address] [place] [place] [address] [facility] Potassium [Moles/Vol] 3.9 mmol/L Normal 3.5-5.1 [facility] Comment on above: Performed By: #### C BC, BMP ####[place] [place] [place] [address] [facility] Sodium [Moles/Vol] 139 mmol/L Normal 136-145 [facility] Comment on above: Performed By: #### C BC, BMP ####[address] [place] [address] [facility] Urea nitrogen [Mass/Vol] 29 mg/dL High 7-25 [facility] Comment on above: Performed By: #### C BC, BMP ####[facility] [place] [address] [place] Basophils Auto (Bld) [#/Vol] Ordered By: Gela Eller on 07-26-2023 Basophils (Bld) [#/Vol] 0.0 10*3/uL 0.0-0.2 [facility] Basophils/100 WBC Auto (Bld) Ordered By: Gela Eller on 07-26-2023 Basophils/100 WBC (Bld) 0.9 % . [facility] Calcium [Mass/volume] in Ser um or PlasmaOrdered By: Gela Eller on 07-26-2023 Calcium [Mass/Vol] 8.5 mg/dL 8.6-10.3 [facility] Carbon dioxide, total [Moles /volume] in Serum or PlasmaOrdered By: Gela Eller on 07-26-2023 CO2 [Moles/Vol] 26.0 mmol/L 21.0-31.0 [facility] Chloride [Moles/volume] in S sadi or PlasmaOrdered By: Gela Eller on 07-26-2023 Chloride [Moles/Vol] 105 mmol/L 98-107 [facility] Complete Blood Count Auto Di ffon 07-26-2023 Basophils (Bld) [#/Vol] 0.0 10*3/uL Normal 0.0-0.2 [facility] Comment on above: Result Comment: PERF ORMED BY: [facility] [address] [place] [id number] PATHOLOGIST PRODUCTION OFFICER RAHEL TREVINO M.D. Performed By: #### C SADAF, BMP ####[place] [address] [place] [id number] [facility] Basophils/100 WBC (Bld) 0.9 % Normal . [facility] Comment on above: Performed By: #### C BC, BMP ####[place] [address] [place] [id number] [facility] Eosinophils (Bld) [#/Vol] 0.4 10*3/uL Normal 0.0-0.45 [facility] Comment on above: Performed By: #### C BC, BMP ####[place] [id number] [facility] Eosinophils/100 WBC (Bld) 7.7 % Normal . [facility] Comment on above: Performed By: #### C BC, BMP ####[place] [id number] [facility] Erythrocyte distribution width (RBC) [Ratio] 12.1 % Normal 12.0-14.8 [facility] Comment on above: Performed By: #### C BC, BMP ####[place] [id number] [facility] Hematocrit (Bld) [Volume fraction] 31.2 % Low 38.8-50.0 [facility] Comment on above: Performed By: #### C BC, BMP ####[place] [id number] [facility] Hemoglobin (Bld) [Mass/Vol] 10.6 g/dL Low 13.0-17.0 [facility] Comment on above: Performed By: #### C BC, BMP ####[place] [id number] [facility] Lymphocytes (Bld) [#/Vol] 0.8 10*3/uL Low 1.00-4.8 [facility] Comment on above: Performed By: #### C BC, BMP ####[place] [id number] [facility] Lymphocytes/100 WBC (Bld) 15.8 % Normal . [facility] Comment on above: Performed By: #### C BC, BMP ####[address] [address] [facility] MCH (RBC) [Entitic mass] 30.1 pg Normal 27.5-35.2 [facility] Comment on above: Performed By: #### C BC, BMP ####[place] [id number] [facility] MCV (RBC) [Entitic vol] 88.6 fL Normal 83.5-101 [facility] Comment on above: Performed By: #### C BC, BMP ####[facility] [place] [address] [facility] Mean Corpuscular HGB Conc 34.0 g/dL Normal 32.5-35.6 [facility] Comment on above: Performed By: #### C BC, BMP ####[place] [address] [place] [address] [facility] Monocytes (Bld) [#/Vol] 1.1 10*3/uL High 0.0-0.8 [facility] Comment on above: Performed By: #### C BC, BMP ####[address] [address] [facility] Monocytes/100 WBC (Bld) 22.7 % Normal . [facility] Comment on above: Performed By: #### C BC, BMP ####[address] [address] [facility] Neutrophils (Bld) [#/Vol] 2.6 10*3/uL Normal 1.8-7.7 [facility] Comment on above: Performed By: #### C BC, BMP ####[address] [address] [facility] Neutrophils/100 WBC (Bld) 52.9 % Normal . [facility] Comment on above: Performed By: #### C BC, BMP ####[address] [place] [place] [address] [facility] NRBC% 0.2 /100{WBC} Normal 0-0.5 [facility] Comment on above: Performed By: #### C BC, BMP ####[address] [address] [facility] Platelet mean volume (Bld) [Entitic vol] 10.2 fL High 6.6-10.1 [facility] Comment on above: Performed By: #### C BC, BMP ####[address] [address] [facility] Platelets (Bld) [#/Vol] 190 10*3/uL Normal 150-450 [facility] Comment on above: Performed By: #### C BC, BMP ####[facility] [address] [place] [address] [facility] RBC (Bld) [#/Vol] 3.52 10*6/uL Low 3.90-5.60 [facility] Comment on above: Performed By: #### C BC, BMP ####[facility] [place] [address] [facility] WBC (Bld) [#/Vol] 5.0 10*3/uL Normal 4.1-10.5 [facility] Comment on above: Performed By: #### C BC, BMP ####[facility] [place] [id number] [facility] Creatinine [Mass/volume] in Serum or PlasmaOrdered By: Gela Eller on 07-26-2023 Creatinine [Mass/Vol] 1.71 mg/dL 0.70-1.30 [facility] Comment on above: Delta: 2.86 on 07/25 Eosinophils Auto (Bld) [#/Vo l]Ordered By: Gela Eller on 07-26-2023 Eosinophils (Bld) [#/Vol] 0.4 10*3/uL 0.0-0.45 [facility] Eosinophils/100 WBC Auto (Bl d)Ordered By: Gela Eller on 07-26-2023 Eosinophils/100 WBC (Bld) 7.7 % . [facility] Erythrocyte distribution wid th Auto (RBC) [Ratio]Ordered By: Gela Eller on 07-26-2023 Erythrocyte distribution width (RBC) [Ratio] 12.1 % 12.0-14.8 [facility] Glucose [Mass/volume] in Ser um or PlasmaOrdered By: Gela Eller on 07-26-2023 Glucose [Mass/Vol] 115 mg/dL 70-100 [facility] Comment on above: ADA recommended refe rence rangeRandom Glucose Reference Range is dependent on time and content of last meal. Glucose of more than 200 mg/dL in a nonstressed, ambulatory subject supports the diagnosis of Diabetes Mellitus. Hematocrit Auto (Bld) [Volum e fraction]Ordered By: Gela Eller on 07-26-2023 Hematocrit (Bld) [Volume fraction] 31.2 % 38.8-50.0 [facility] Hemoglobin [Mass/volume] in BloodOrdered By: Gela Eller on 07-26-2023 Hemoglobin (Bld) [Mass/Vol] 10.6 g/dL 13.0-17.0 [facility] Leukocytes [#/volume] correc johnnie for nucleated erythrocytes in Blood by Automated counOrdered By: Gela Eller on 07-26-2023 WBC corrected for nucl RBC Auto (Bld) [#/Vol] 5.0 10*3/uL 4.1-10.5 [facility] Lymphocytes Auto (Bld) [#/Vo l]Ordered By: Gela Eller on 07-26-2023 Lymphocytes (Bld) [#/Vol] 0.8 10*3/uL 1.00-4.8 [facility] Lymphocytes/100 WBC Auto (Bl d)Ordered By: Gela Eller on 07-26-2023 Lymphocytes/100 WBC (Bld) 15.8 % . [facility] MCH Auto (RBC) [Entitic mass ]Ordered By: Gela Eller on 07-26-2023 MCH (RBC) [Entitic mass] 30.1 pg 27.5-35.2 [facility] MCHC Auto (RBC) [Mass/Vol]Or dered By: Gela Eller on 07-26-2023 MCHC (RBC) [Mass/Vol] 34.0 g/dL 32.5-35.6 [facility] MCV Auto (RBC) [Entitic vol] Ordered By: Gela Eller on 07-26-2023 MCV (RBC) [Entitic vol] 88.6 fL 83.5-101 [facility] Monocytes Auto (Bld) [#/Vol] Ordered By: Gela Eller on 07-26-2023 Monocytes (Bld) [#/Vol] 1.1 10*3/uL 0.0-0.8 [facility] Monocytes/100 WBC Auto (Bld) Ordered By: Gela Eller on 07-26-2023 Monocytes/100 WBC (Bld) 22.7 % . [facility] Neutrophils Auto (Bld) [#/Vo l]Ordered By: Gela Eller on 07-26-2023 Neutrophils (Bld) [#/Vol] 2.6 10*3/uL 1.8-7.7 [facility] Neutrophils/100 WBC Auto (Bl d)Ordered By: Gela Eller on 07-26-2023 Neutrophils/100 WBC (Bld) 52.9 % . [facility] No Panel InformationOrdered By: Gela Eller on 07-26-2023 Estimated GFR (CKD-EPI) 43.064 mL/Min [facility] Creatinine Clearance (Chem 41.35 [facility] Nucleated erythrocytes [Pres ence] in Blood by Automated countOrdered By: Gela Eller on 07-26-2023 Nucleated RBC Auto Ql (Bld) 0.2 /100{WBC} 0-0.5 [facility] Platelet mean volume Auto (B ld) [Entitic vol]Ordered By: Gela Eller on 07-26-2023 Platelet mean volume (Bld) [Entitic vol] 10.2 fL 6.6-10.1 [facility] Platelets Auto (Bld) [#/Vol] Ordered By: Gela Eller on 07-26-2023 Platelets (Bld) [#/Vol] 190 10*3/uL 150-450 [facility] Potassium [Moles/volume] in Serum or PlasmaOrdered By: Gela Eller on 07-26-2023 Potassium [Moles/Vol] 3.9 mmol/L 3.5-5.1 [facility] RBC Auto (Bld) [#/Vol]Ordere d By: Gela Eller on 07-26-2023 RBC (Bld) [#/Vol] 3.52 10*6/uL 3.90-5.60 [facility] Serum or plasma anion gap de terminationOrdered By: Gela Eller on 07-26-2023 Anion gap [Moles/Vol] 11.9 mmol/L 6.0-15.0 [facility] Sodium [Moles/volume] in Ser um or PlasmaOrdered By: Gela Eller on 07-26-2023 Sodium [Moles/Vol] 139 mmol/L 136-145 [facility] Urea nitrogen [Mass/volume] in Serum or PlasmaOrdered By: Gela Eller on 07-26-2023 Urea nitrogen [Mass/Vol] 29 mg/dL 7-25 [facility] WBC Auto (Bld) [#/Vol]Ordere d By: Gela Eller on 07-26-2023 WBC (Bld) [#/Vol] 5.0 10*3/uL 4.1-10.5 [facility] Alanine aminotransferase [En zymatic activity/volume] in Serum or PlasmaOrdered By: Gela Eller on 07-25-2023 ALT [Catalytic activity/Vol] 9 U/L 7-52 [facility] Albumin [Mass/volume] in Ser um or Plasma by Bromocresol green (BCG) dye binding methoOrdered By: Gela Eller on 07-25-2023 Albumin BCG dye [Mass/Vol] 3.4 g/dL 3.5-5.7 [facility] Alkaline phosphatase [Enzyma tic activity/volume] in Serum or PlasmaOrdered By: Gela Eller on 07-25-2023 ALP [Catalytic activity/Vol] 60 U/L 34-104 [facility] Aspartate aminotransferase [ Enzymatic activity/volume] in Serum or PlasmaOrdered By: Gela Eller on 07-25-2023 AST [Catalytic activity/Vol] 16 U/L 13-39 [facility] Basic Metabolic Panelon 12-0 Anion gap [Moles/Vol] 11.8 mmol/L Normal 6.0-15.0 [facility] Comment on above: Order Comment: Genevieve grissom pls call w K level Performed By: #### B MP ####[facility] [id number] [place] [address] [facility] Calcium [Mass/Vol] 8.3 mg/dL Low 8.6-10.3 [facility] Comment on above: Order Comment: Comme nt pls call w K level Performed By: #### B MP ####[place] [id number] [facility] Chloride [Moles/Vol] 97 mmol/L Low 98-107 [facility] Comment on above: Order Comment: Comme nt pls call w K level Performed By: #### B MP ####[place] [id number] [facility] CO2 [Moles/Vol] 31.8 mmol/L High 21.0-31.0 [facility] Comment on above: Order Comment: Comme nt pls call w K level Performed By: #### B MP ####[place] [id number] [facility] Creatinine [Mass/Vol] 3.42 mg/dL Significan t change up 0.70-1.30 [facility] Comment on above: Order Comment: Comme nt pls call w K level Performed By: #### B MP ####[address] Creatinine Clr Calc Pharmacy 20.67 Normal [facility] Comment on above: Order Comment: Comme nt pls call w K level Result Comment: PERF ORMED BY: [facility] [address] [place] [id number] PATHOLOGIST PRODUCTION OFFICER RAHEL TREVINO M.D. Performed By: #### B MP ####[address] GFR/1.73 sq M.predicted MDRD (S/P/Bld) [Vol rate/Area] 18.745 mL/min/{1.73_m2} Normal [facility] Comment on above: Order Comment: Comme nt pls call w K level Performed By: #### B MP ####[place] [id number] [facility] Glucose [Mass/Vol] 86 mg/dL Normal 70-100 [facility] Comment on above: Order Comment: Comme nt pls call w K level Result Comment: [place] Glucose Reference Range is dependent on time and content of last meal. Glucose of more than 200 mg/dL in a nonstressed, ambulatory subject supports the diagnosis of Diabetes Mellitus. ADA recommended reference range Performed By: #### B MP ####[address] Potassium [Moles/Vol] 3.6 mmol/L Normal 3.5-5.1 [facility] Comment on above: Order Comment: Comme nt pls call w K level Performed By: #### B MP ####[place] [id number] [facility] Sodium [Moles/Vol] 137 mmol/L Normal 136-145 [facility] Comment on above: Order Comment: Comme nt pls call w K level Performed By: #### B MP ####[address] Urea nitrogen [Mass/Vol] 50 mg/dL High 7-25 [facility] Comment on above: Order Comment: Comme nt pls call w K level Performed By: #### B MP ####[address] Bilirubin.total [Mass/volume ] in Serum or PlasmaOrdered By: Gela Eller on 07-25-2023 Bilirubin [Mass/Vol] 0.7 mg/dL 0.3-1.0 [facility] Complete Blood Count Auto Di ffon 07-25-2023 Basophils (Bld) [#/Vol] 0.1 10*3/uL Normal 0.0-0.2 [facility] Comment on above: Result Comment: PERF ORMED BY: [address] [place] [address] PATHOLOGIST PRODUCTION OFFICER RAHEL TREVINO M.D. Performed By: #### C MP, CBC #### [place] [address] [place] Basophils/100 WBC (Bld) 0.9 % Normal . [facility] Comment on above: Performed By: #### C MP, CBC #### [place] [address] [place] Eosinophils (Bld) [#/Vol] 0.5 10*3/uL High 0.0-0.45 [facility] Comment on above: Performed By: #### C MP, CBC #### [address] Eosinophils/100 WBC (Bld) 7.7 % Normal . [facility] Comment on above: Performed By: #### C MP, CBC #### [address] Erythrocyte distribution width (RBC) [Ratio] 12.4 % Normal 12.0-14.8 [facility] Comment on above: Performed By: #### C MP, CBC #### [address] Hematocrit (Bld) [Volume fraction] 33.8 % Low 38.8-50.0 [facility] Comment on above: Performed By: #### C MP, CBC #### [address] Hemoglobin (Bld) [Mass/Vol] 11.3 g/dL Low 13.0-17.0 [facility] Comment on above: Performed By: #### C MP, CBC #### [address] Lymphocytes (Bld) [#/Vol] 0.6 10*3/uL Low 1.00-4.8 [facility] Comment on above: Performed By: #### C MP, CBC #### [address] Lymphocytes/100 WBC (Bld) 9.8 % Normal . [facility] Comment on above: Performed By: #### C MP, CBC #### [address] MCH (RBC) [Entitic mass] 29.8 pg Normal 27.5-35.2 [facility] Comment on above: Performed By: #### C MP, CBC #### [address] MCV (RBC) [Entitic vol] 89.0 fL Normal 83.5-101 [facility] Comment on above: Performed By: #### C MP, CBC #### [address] Mean Corpuscular HGB Conc 33.5 g/dL Normal 32.5-35.6 [facility] Comment on above: Performed By: #### C MP, CBC #### [address] Monocytes (Bld) [#/Vol] 1.3 10*3/uL High 0.0-0.8 [facility] Comment on above: Performed By: #### C MP, CBC #### [address] Monocytes/100 WBC (Bld) 21.3 % Normal . [facility] Comment on above: Performed By: #### C MP, CBC #### [address] Neutrophils (Bld) [#/Vol] 3.6 10*3/uL Normal 1.8-7.7 [facility] Comment on above: Performed By: #### C MP, CBC #### [address] Neutrophils/100 WBC (Bld) 60.3 % Normal . [facility] Comment on above: Performed By: #### C MP, CBC #### [address] NRBC% 0.1 /100{WBC} Normal 0-0.5 [facility] Comment on above: Performed By: #### C MP, CBC #### [address] Platelet mean volume (Bld) [Entitic vol] 10.7 fL High 6.6-10.1 [facility] Comment on above: Performed By: #### C MP, CBC #### [address] Platelets (Bld) [#/Vol] 188 10*3/uL Significant change down 150-450 [facility] Comment on above: Performed By: #### C MP, CBC #### [address] RBC (Bld) [#/Vol] 3.80 10*6/uL Low 3.90-5.60 [facility] Comment on above: Performed By: #### C MP, CBC #### [address] WBC (Bld) [#/Vol] 5.9 10*3/uL Normal 4.1-10.5 [facility] Comment on above: Performed By: #### C MP, CBC #### [address] Comprehensive Metabolic Pane jefry 07-25-2023 Albumin [Mass/Vol] 3.4 g/dL Low 3.5-5.7 [facility] Comment on above: Performed By: #### C MP, CBC #### [address] Albumin/Globulin [Mass ratio] 1.3 {ratio} Normal [facility] Comment on above: Performed By: #### C MP, CBC #### [address] ALP [Catalytic activity/Vol] 60 U/L Normal 34-104 [facility] Comment on above: Performed By: #### C MP, CBC #### [address] ALT [Catalytic activity/Vol] 9 U/L Normal 7-52 [facility] Comment on above: Performed By: #### C MP, CBC #### [address] Anion gap [Moles/Vol] 11.5 mmol/L Normal 6.0-15.0 [facility] Comment on above: Performed By: #### C MP, CBC #### [address] AST [Catalytic activity/Vol] 16 U/L Normal 13-39 [facility] Comment on above: Performed By: #### C MP, CBC #### [facility] [address] [place] [address] [place] Bilirubin [Mass/Vol] 0.7 mg/dL Normal 0.3-1.0 [facility] Comment on above: Performed By: #### C MP, CBC #### [facility] [address] [place] [address] [place] Calcium [Mass/Vol] 8.6 mg/dL Normal 8.6-10.3 [facility] Comment on above: Performed By: #### C MP, CBC #### [facility] [address] [place] [address] [place] Chloride [Moles/Vol] 98 mmol/L Normal 98-107 [facility] Comment on above: Performed By: #### C MP, CBC #### [facility] [address] CO2 [Moles/Vol] 31.4 mmol/L High 21.0-31.0 [facility] Comment on above: Performed By: #### C MP, CBC #### [facility] [address] [place] [address] [place] Creatinine [Mass/Vol] 2.86 mg/dL Significan t change up 0.70-1.30 [facility] Comment on above: Performed By: #### C MP, CBC #### [facility] [address] [place] [address] [place] Creatinine Clr Calc Pharmacy 24.72 Normal [facility] Comment on above: Result Comment: PERF ORMED BY: [place] [address] PATHOLOGIST PRODUCTION OFFICER RAHEL TREVINO M.D. Performed By: #### C MP, CBC #### [facility] [address] [place] [address] [place] GFR/1.73 sq M.predicted MDRD (S/P/Bld) [Vol rate/Area] 23.231 mL/min/{1.73_m2} Normal [facility] Comment on above: Performed By: #### C MP, CBC #### [address] Globulin (S) [Mass/Vol] 2.7 g/dL Normal [facility] Comment on above: Performed By: #### C MP, CBC #### [address] Glucose [Mass/Vol] 81 mg/dL Normal 70-100 [facility] Comment on above: Result Comment: [facility] Glucose Reference Range is dependent on time and content of last meal. Glucose of more than 200 mg/dL in a nonstressed, ambulatory subject supports the diagnosis of Diabetes Mellitus. ADA recommended reference range Performed By: #### C MP, CBC #### [address] Potassium [Moles/Vol] 3.9 mmol/L Normal 3.5-5.1 [facility] Comment on above: Performed By: #### C MP, CBC #### [address] Protein [Mass/Vol] 6.1 g/dL Significant change down 6.4-8.9 [facility] Comment on above: Performed By: #### C MP, CBC #### [address] Sodium [Moles/Vol] 137 mmol/L Normal 136-145 [facility] Comment on above: Performed By: #### C MP, CBC #### [address] Urea nitrogen [Mass/Vol] 44 mg/dL High 7-25 [facility] Comment on above: Performed By: #### C MP, CBC #### [place] [address] [place] Creatinine, Urine (Random)on 07-25-2023 Creatinine, Urine (Random) 141.0 mg/dL High 14.0-26.0 [facility] Comment on above: Performed By: #### U NA, UCREA #### [place] [address] [facility] Globulin Calc (S) [Mass/Vol] Ordered By: Gela Eller on 07-25-2023 Globulin (S) [Mass/Vol] 2.7 g/dL [facility] Jefry 07-25-2023 L ------ Specimen: [id number] Received: 07/25/23 Status: ANT Goyal Num: [id number] Spec Type: Surgical Subm Dr: Nohemy Linder MD Tissues: A Duodenum - Biopsy (DUODENUM BX) B Gastric Biopsy (GASTRIC BX) Procedures: HE/4, Gross/Micro L4/2, H PYLORI Age/ Patient Sex Location Account Attending Physician Aisha Julien/Radha [id number] Gela Eller MD SPEC NUM: [id number] RECD: 07/25/23 STATUS: ANT GOYAL NUM: [id number] ALLISON: 07/25/23- DR: Nohemy Linder MD ENTERED: 07/25/[address] [facility] [address]: SPEC TYPE: Surgical DEPT: S ORDERED: HE/4, Gross/Micro L4/2, H PYLORI ORDERED: HE/4, Gross/Micro L4/2, H PYLORI Pathological Diagnosis A. Duodenal biopsy: - Duodenal mucosa with generally preserved mucosal glandular architecture except mild nodular reactive proliferations of the Ysabel's glands, minor gastric metaplasia, and only mild insignificant stromal chronic inflammation, otherwise also without erosion, glandular atypia, any obvious or abnormal lymphocytic exocytosis, any villous blunting, or any features of celiac sprue identified B. Gastric biopsy: - Oxyntic mucosa with only minor insignificant chronic inflammation including minor suggested chronic erosion with occasionally admixed eosinophils in adjacent lamina propria, otherwise without acute inflammation, active erosion, intestinal metaplasia, or glandular atypia identified - H. pylori immunostain with appropriate control is also negative for identified Helicobacter organism or infection Clinical Information Dizzy, abnormal labs Specimen: [id number] Received: 07/25/23 Status: ANT Castro Num: [id number] Spec Type: Surgical Subm Dr: Nohemy Linder MD Tissues: A Duodenum - Biopsy (DUODENUM BX) B Gastric Biopsy (GASTRIC BX) Procedures: HE/4, Gross/Micro L4/2, H PYLORI Patient: Aisha Julien [id number] (Continued) Specimen: [id number] Received: 07/25/23 (Continued) Signed (signature on file) Vignesh Koehler MD 07/28/231999 Specimen: [id number] Received: 07/25/23 Status: LIBERTADMary Goyal Num: [id number] Spec Type: Surgical Subm Dr: Nohemy Linder MD Tissues: A Duodenum - Biopsy (DUODENUM BX) B Gastric Biopsy (GASTRIC BX) Procedures: HE/4, Gross/Micro L4/2, H PYLORI Patient: Aisha Julien [id number] (Continued) Specimen: [id number] Received: 07/25/23 (Continued) Gross Description A. Received in formalin labeled with the patient's name, date of and duodenum biopsy is one vazquez tissue measuring 0.4 x 0.2 x 0.2 cm. Entirely submitted in one cassette labeled A1. B. Received in formalin labeled with the patient's name, date of and gastric biopsy is one vazquez tissue measuring 0.6 x 0.2 x 0.2 cm. Entirely submitted in one cassette labeled B1. Microscopic Description A. Two H E slides reviewed. The microscopic examination confirms the diagnosis. B. Two H E slides reviewed. The microscopic examination confirms the diagnosis. CPT Codes 59266l4, 14639s8 Specimen: [id number] Received: 07/25/23 Status: ANT Goyal Num: [id number] Spec Type: Surgical Subm Dr: Nohemy Linder MD Tissues: A Duodenum - Biopsy (DUODENUM BX) B Gastric Biopsy (GASTRIC BX) Procedures: HE/4, Gross/Micro L4/2, H PYLORI Patient: Aisha Julien [id number] (Continued) Signed (signature on file) Chin-Winston Koehler MD 07/28/231999 Normal [facility] Protein [Mass/volume] in Ser um or PlasmaOrdered By: Gela Eller on 07-25-2023 Protein [Mass/Vol] 6.1 g/dL 6.4-8.9 [facility] Comment on above: Delta: 7.8 on Serum or plasma albumin/glob ulin mass ratioOrdered By: Gela Eller on 07-25-2023 Albumin/Globulin [Mass ratio] 1.3 {ratio} [facility] Sodium, Urine (Random)on Sodium (U) [Moles/Vol] 41 mmol/L [facility] Comment on above: Result Comment: No r eference range established PERFORMED BY: [place] [address] PATHOLOGIST PRODUCTION OFFICER RAHEL TREVINO M.D. Performed By: #### U CHERRY HAN #### [address] Alanine aminotransferase [En zymatic activity/volume] in Serum or PlasmaOrdered By: Jean Paul Gutiérrez on 07-24-2023 ALT [Catalytic activity/Vol] 12 U/L 7-52 [facility] Albumin [Mass/volume] in Ser um or Plasma by Bromocresol green (BCG) dye binding methoOrdered By: Jean Paul Gutiérrez on 07-24-2023 Albumin BCG dye [Mass/Vol] 4.3 g/dL 3.5-5.7 [facility] Alkaline phosphatase [Enzyma tic activity/volume] in Serum or PlasmaOrdered By: Jean Paul Gutiérrez on 07-24-2023 ALP [Catalytic activity/Vol] 72 U/L 34-104 [facility] Aspartate aminotransferase [ Enzymatic activity/volume] in Serum or PlasmaOrdered By: Jean Paul Gutiérrez on 07-24-2023 AST [Catalytic activity/Vol] 24 U/L 13-39 [facility] Automated erythrocytes count in urine sediment (number/area)Ordered By: Jean Paul Gutiérrez on 07-24-2023 RBC Auto (Urine sed) [#/Area] 5-9 [HPF] 0-4 [facility] Automated leukocytes count i n urine sediment (number/area)Ordered By: Jean Paul Gutiérrez on 07-24-2023 WBC Auto (Urine sed) [#/Area] 0-1 [HPF] 0-4 [facility] Basic Metabolic Panelon 06-27 Anion gap [Moles/Vol] 18.0 mmol/L High 6.0-15.0 [facility] Comment on above: Performed By: #### C MP, CBC #### [facility] [address] [place] [address] [place] Calcium [Mass/Vol] 9.6 mg/dL Normal 8.6-10.3 [facility] Comment on above: Performed By: #### C MP, CBC #### [facility] [address] [place] [address] [place] Chloride [Moles/Vol] 84 mmol/L Low 98-107 [facility] Comment on above: Performed By: #### C MP, CBC #### [facility] [address] [place] [address] [place] CO2 [Moles/Vol] 34.9 mmol/L High 21.0-31.0 [facility] Comment on above: Performed By: #### C MP, CBC #### [facility] [address] [place] [address] [place] Creatinine [Mass/Vol] 4.59 mg/dL High 0.70-1.30 [facility] Comment on above: Performed By: #### C MP, CBC #### [facility] [address] [place] [address] [place] Creatinine Clr Calc Pharmacy 15.40 [facility] Comment on above: Performed By: #### C MP, CBC #### [facility] [address] [place] [address] [place] GFR/1.73 sq M.predicted MDRD (S/P/Bld) [Vol rate/Area] 13.168 mL/min/{1.73_m2} [facility] Comment on above: Performed By: #### C MP, CBC #### [facility] [address] Glucose [Mass/Vol] 128 mg/dL High 70-100 [facility] Comment on above: Result Comment: [facility] Glucose Reference Range is dependent on time and content of last meal. Glucose of more than 200 mg/dL in a nonstressed, ambulatory subject supports the diagnosis of Diabetes Mellitus. ADA recommended reference range Performed By: #### C MP, CBC #### [facility] [address] [place] [address] [place] Potassium [Moles/Vol] 2.9 mmol/L Off scale low 3.5-5.1 [facility] Comment on above: Result Comment: Crit ical Result Called to and read back by: ANDREAS CARABALLO at: 07/24/2023 13:30:58 by:MLG Performed By: #### C MP, CBC #### [facility] [address] [place] [address] [place] Sodium [Moles/Vol] 134 mmol/L Low 136-145 [facility] Comment on above: Performed By: #### C MP, CBC #### [facility] [address] [place] [address] [place] Urea nitrogen [Mass/Vol] 56 mg/dL High 7-25 [facility] Comment on above: Performed By: #### C MP, CBC #### [facility] [address] [place] [address] [place] Basophils Auto (Bld) [#/Vol] Ordered By: Jean Paul Gutiérrez on 07-24-2023 Basophils (Bld) [#/Vol] 0.0 10*3/uL 0.0-0.2 [facility] Basophils/100 WBC Auto (Bld) Ordered By: Jean Paul Gutiérrez on 07-24-2023 Basophils/100 WBC (Bld) 0.5 % . [facility] Bilirubin Test strip Ql (U)O rdered By: Jean Paul Gutiérrez on 07-24-2023 Bilirubin Ql (U) Negative Negative [facility] Bilirubin.direct [Mass/volum e] in Serum or PlasmaOrdered By: Jean Paul Gutiérrez on 07-24-2023 Bilirubin.direct [Mass/Vol] 0.20 mg/dL 0.03-0.18 [facility] Bilirubin.total [Mass/volume ] in Serum or PlasmaOrdered By: Jean Paul Gutiérrez on 07-24-2023 Bilirubin [Mass/Vol] 0.8 mg/dL 0.3-1.0 [facility] CT abdomen pelvis wo conon 1 09-23-2022 CT abdomen pelvis wo con [facility] [place] [address] [place] Scan Report Signed Patient: Aisha Julien MR#: [id number] 79 : 1955 Acct:[id number] Age/Sex: 68 / M ADM Date: 07/24/23 Loc: ER Room: Type: [facility] ER Attending Dr: Copies to: Jean Paul Gutiérrez DO Ordering Provider: Jean Paul Gutiérrez DO Date of Service: 07/24/23 CT/CT abdomen pelvis wo con: renal failure CT ABDOMEN AND PELVIS WITHOUT INTRAVENOUS CONTRAST: CLINICAL HISTORY: Lower abdominal pain for several days. COMPARISON: CT abdomen and pelvis 06/06/2021 TECHNIQUE: Spiral images were obtained through the abdomen and pelvis without intravenous contrast. This CT exam was performed using one or more following dose reduction techniques: Automated exposure control, adjustment of the mA and/or kV according to patient size, or use of iterative reconstruction technique. FINDINGS: Lung Bases: [Bibasilar scarring.] Organs:Suboptimal evaluation due to lack of IV contrast. Liver gallbladder spleen pancreas and adrenal glands all appear unremarkable. The subcentimeter lesions involving the liver on the prior study are occult today. Kidneys demonstrate no stones or hydronephrosis. Abdominal aorta appears normal in caliber.[ GI: Stomach is distended with fluid. There appears to be distention involving the first and second portions of the duodenum with a small bowel mass involving the third portion of the duodenum extending into the mesentery with presumed bulky lymphadenopathy. The mass is difficult to measure but appears to measure 3.4 x 3.4 cm in greatest axial dimensions. The lymphadenopathy involving the mesentery extends inferiorly some of which appears partially calcified. It is difficult to say whether this small bowel mass extends from or invade the pancreatic head/uncinate process.[Distal small bowel appears nondilated. Mesenteric engorgement is seen. Fluid is seen within the colon without abnormal wall thickening or inflammatory change. Pelvis:[Prostatomegaly. Urinary bladder demonstrates no focal abnormality.] Peritoneum/Retroperitoneum :No free air or free fluid. Left periaortic lymphadenopathy is seen largest lymph node measures 18 mm in short axis.[ Abd wall/Bones:Abdominal wall demonstrates no acute findings. Lipoma is noted involving the right gluteus carole muscle. Osseous structures demonstrate degenerative change. Remote right-sided rib fractures.[ CT/CT abdomen pelvis wo con IMPRESSION: A mass is noted in the region of the third portion the duodenum with associated obstruction of the stomach and proximal duodenum. The mass is difficult to measure but measures approximately 3.4 x 3.4 cm in greatest axial dimensions. There appears to be adjacent bulky lymphadenopathy involving the mesentery extending inferiorly some of which appears partially calcified. There also appears to be left periaortic lymphadenopathy. It is difficult to say with certainty whether this mass arises from the small bowel or pancreas. Given the partially calcified lymphadenopathy a carcinoid tumor is suspected. Further evaluation with endoscopy and EUS is suggested. Findings have progressed since the prior study. Mesenteric engorgement is seen. Given the size of the mass, portal vein/SMV thrombosis cannot be excluded. Findings were discussed with Dr. Gutiérrez 2:44 PM 07/24/2023 Impression dictated by: Lebron Santa Jr., D.OAlma07/24/2023 2:43 PM Dictation Location: [facility] Transcribed By: [facility] 07/24/23 1443 Dictated By: Lebron Santa Jr DO 07/24/23 1428 Signed By: 07/24/23 1443 Normal [facility] Calcium [Mass/volume] in Ser um or PlasmaOrdered By: Jean Paul Gutiérrez on 07-24-2023 Calcium [Mass/Vol] 9.6 mg/dL 8.6-10.3 [facility] Carbon dioxide, total [Moles /volume] in Serum or PlasmaOrdered By: Jean Paul Gutiérrez on 07-24-2023 CO2 [Moles/Vol] 34.9 mmol/L 21.0-31.0 [facility] Chloride [Moles/volume] in S sadi or PlasmaOrdered By: Jean Paul Gutiérrez on 07-24-2023 Chloride [Moles/Vol] 84 mmol/L 98-107 [facility] Color Auto (U)Ordered By: Vincent Gutiérrez on 07-24-2023 Color (U) Yellow Yellow [facility] Complete Blood Count Auto Di ffon 07-24-2023 Basophils (Bld) [#/Vol] 0.0 10*3/uL Normal 0.0-0.2 [facility] Comment on above: Result Comment: PERF ORMED BY: [place] [address] PATHOLOGIST PRODUCTION OFFICER RAHEL TREVINO M.D. Performed By: #### C MP, CBC #### [facility] [address] [place] [address] [place] Basophils/100 WBC (Bld) 0.5 % Normal . [facility] Comment on above: Performed By: #### C MP, CBC #### [facility] [address] [place] [address] [place] Eosinophils (Bld) [#/Vol] 0.1 10*3/uL Normal 0.0-0.45 [facility] Comment on above: Performed By: #### C MP, CBC #### [facility] [address] [place] [address] [place] Eosinophils/100 WBC (Bld) 1.0 % Normal . [facility] Comment on above: Performed By: #### C MP, CBC #### [facility] [address] Erythrocyte distribution width (RBC) [Ratio] 12.4 % Normal 12.0-14.8 [facility] Comment on above: Performed By: #### C MP, CBC #### [facility] [address] Hematocrit (Bld) [Volume fraction] 40.5 % Normal 38.8-50.0 [facility] Comment on above: Performed By: #### C MP, CBC #### [facility] [address] Hemoglobin (Bld) [Mass/Vol] 13.7 g/dL Normal 13.0-17.0 [facility] Comment on above: Performed By: #### C MP, CBC #### [address] Lymphocytes (Bld) [#/Vol] 0.9 10*3/uL Low 1.00-4.8 [facility] Comment on above: Performed By: #### C MP, CBC #### [address] Lymphocytes/100 WBC (Bld) 12.6 % Normal . [facility] Comment on above: Performed By: #### C MP, CBC #### [address] MCH (RBC) [Entitic mass] 29.8 pg Normal 27.5-35.2 [facility] Comment on above: Performed By: #### C MP, CBC #### [facility] [address] MCV (RBC) [Entitic vol] 88.1 fL Normal 83.5-101 [facility] Comment on above: Performed By: #### C MP, CBC #### [address] Mean Corpuscular HGB Conc 33.8 g/dL Normal 32.5-35.6 [facility] Comment on above: Performed By: #### C MP, CBC #### [address] Monocytes (Bld) [#/Vol] 0.8 10*3/uL Normal 0.0-0.8 [facility] Comment on above: Performed By: #### C MP, CBC #### [address] Monocytes/100 WBC (Bld) 21.73 % High 0.00-20.00 [facility] Comment on above: Result Comment: For adults in ED, MDW > 20.0 may be associated with a higher risk of sepsis during the first 12 hrs of hospital admission Performed By: #### C MP, CBC #### [address] Monocytes/100 WBC (Bld) 10.3 % Normal . [facility] Comment on above: Performed By: #### C MP, CBC #### [address] Neutrophils (Bld) [#/Vol] 5.5 10*3/uL Normal 1.8-7.7 [facility] Comment on above: Performed By: #### C MP, CBC #### [address] Neutrophils/100 WBC (Bld) 75.6 % Normal . [facility] Comment on above: Performed By: #### C MP, CBC #### [address] NRBC% 0.2 /100{WBC} Normal 0-0.5 [facility] Comment on above: Performed By: #### C MP, CBC #### [address] Platelet mean volume (Bld) [Entitic vol] 10.8 fL High 6.6-10.1 [facility] Comment on above: Performed By: #### C MP, CBC #### [place] [address] [place] Platelets (Bld) [#/Vol] 256 10*3/uL Normal 150-450 [facility] Comment on above: Performed By: #### C MP, CBC #### [facility] [address] RBC (Bld) [#/Vol] 4.60 10*6/uL Normal 3.90-5.60 [facility] Comment on above: Performed By: #### C MP, CBC #### [facility] [address] WBC (Bld) [#/Vol] 7.3 10*3/uL Normal 4.1-10.5 [facility] Comment on above: Performed By: #### C MP, CBC #### [address] Creatinine [Mass/volume] in Serum or PlasmaOrdered By: Jean Paul Gutiérrez on 07-24-2023 Creatinine [Mass/Vol] 4.59 mg/dL 0.70-1.30 [facility] Creatinine [Mass/volume] in UrineOrdered By: Gela Eller on 07-24-2023 Creatinine (U) [Mass/Vol] 141.0 mg/dL 14.0-26.0 [facility] Dipstick and Microscopicon 1 09-23-2022 Appearance (U) Clear Normal Clear [facility] Comment on above: Order Comment: Name Collection Type:: Clean-Voided Midstream Performed By: #### C MP, CBC #### [place] [address] [place] Bacteria,Urine None Seen Normal None Seen [facility] Comment on above: Order Comment: Name Collection Type:: Clean-Voided Midstream Performed By: #### C MP, CBC #### [place] [address] [place] Bilirubin,Urine Negative Normal Negative [facility] Comment on above: Order Comment: Name Collection Type:: Clean-Voided Midstream Performed By: #### C MP, CBC #### [facility] [address] [place] [address] [place] Color (U) Yellow Normal Yellow [facility] Comment on above: Order Comment: Name Collection Type:: Clean-Voided Midstream Performed By: #### C MP, CBC #### [facility] [address] [place] [address] [place] Glucose Ql (U) Normal Normal Normal [facility] Comment on above: Order Comment: Name Collection Type:: Clean-Voided Midstream Performed By: #### C MP, CBC #### [facility] [address] [place] [address] [place] Hyaline Casts,Urine None Seen Normal 0-8 [facility] Comment on above: Order Comment: Name Collection Type:: Clean-Voided Midstream Result Comment: PERF ORMED BY: [place] [address] PATHOLOGIST PRODUCTION OFFICER RAHEL TREVINO M.D. Performed By: #### C MP, CBC #### [place] [address] [place] Ketones Ql (U) Trace High Negative [facility] Comment on above: Order Comment: Name Collection Type:: Clean-Voided Midstream Performed By: #### C MP, CBC #### [facility] [address] [place] [address] [place] Leukocyte esterase Test strip Ql (U) Negative Normal Negative [facility] Comment on above: Order Comment: Name Collection Type:: Clean-Voided Midstream Performed By: #### C MP, CBC #### [facility] [address] [place] [address] [place] Nitrite,Urine Negative Normal Negative [facility] Comment on above: Order Comment: Name Collection Type:: Clean-Voided Midstream Performed By: #### C MP, CBC #### [facility] [address] [place] [address] [place] Occult Blood,Urine Negative Normal Negative [facility] Comment on above: Order Comment: Name Collection Type:: Clean-Voided Midstream Result Comment: PERF ORMED BY: [place] [address] PATHOLOGIST PRODUCTION OFFICER RAHEL TREVINO M.D. Performed By: #### C MP, CBC #### [address] pH (U) 5.5 [pH] Normal 5.0-9.0 [facility] Comment on above: Order Comment: Name Collection Type:: Clean-Voided Midstream Performed By: #### C MP, CBC #### [address] Protein (U) [Mass/Vol] 30 mg/dL High Negative [facility] Comment on above: Order Comment: Name Collection Type:: Clean-Voided Midstream Performed By: #### C MP, CBC #### [address] RBC,Urine 5-9 High 0-4 [facility] Comment on above: Order Comment: Name Collection Type:: Clean-Voided Midstream Performed By: #### C MP, CBC #### [address] Specificy [place] Part,Urine 1.015 Normal 1.001-1.03 0 [facility] Comment on above: Order Comment: Name Collection Type:: Clean-Voided Midstream Performed By: #### C MP, CBC #### [address] Squamous Epithelial Cell,Urine None Seen Normal 0-2 [facility] Comment on above: Order Comment: Name Collection Type:: Clean-Voided Midstream Performed By: #### C MP, CBC #### [address] Urobilinogen,Urine Normal Normal Normal [facility] Comment on above: Order Comment: Name Collection Type:: Clean-Voided Midstream Performed By: #### C MP, CBC #### [address] WBC LM.HPF (Urine sed) [#/Area] 0 /[HPF] Normal 0-4 [facility] Comment on above: Order Comment: Name Collection Type:: Clean-Voided Midstream Performed By: #### C MP, CBC #### [place] [id number] [facility] ECG 12 lead ECGon 07-24-2023 ECG 12 lead ECG [facility] [place] [address] Electrocardiograph Report Signed Patient: Aisha Julien MR#: [id number] 79 : 1955 Acct:[id number] Age/Sex: 68 / M ADM Date: 07/24/23 Loc: Room: [address] [place] [address] Type: ADM IN Attending Dr: Gela Eller MD Ordering Provider: Jean Paul Gutiérrez DO Date of Service: 07/24/23 ECG/ECG 12 lead ECG: Dizziness Copies to: Test Reason : Blood Pressure : 079/047 mmHG Vent. Rate : 066 BPM Atrial Rate : 069 BPM P-R Int : 000 ms QRS Dur : 134 ms QT Int : 430 ms P-R-T Axes : 000 -79 077 degrees QTc Int : 450 ms Wide QRS rhythm Left axis deviation Right bundle branch block Possible Lateral infarct , age undetermined Abnormal ECG When compared with ECG of 24-JUL-2023 12:14, Wide QRS rhythm has replaced Sinus rhythm Confirmed by JEAN PAUL GUTIÉRREZ DO ([id number]) on 07/25/2023 4:32:20 PM Referred By: Electronically Signed By:JEAN PAUL GUTIÉRREZ DO Transcribed By: MUS Signed By Jean Paul Gutiérrez DO 07/25 1632 Normal [facility] ECG 12 lead ECG [facility] Main [place] [id number] Electrocardiograph Report Signed Patient: Aisha Julien MR#: [id number] 79 : 1955 Acct:[id number] Age/Sex: 68 / M ADM Date: 07/24/23 Loc: ER Room: Type: [facility] ER Attending Dr: Ordering Provider: Jean Paul Gutiérrez DO Date of Service: 07/24/23 ECG/ECG 12 lead ECG: Dizziness Copies to: Test Reason : Blood Pressure : 083/045 mmHG Vent. Rate : 070 BPM Atrial Rate : 070 BPM P-R Int : 156 ms QRS Dur : 112 ms QT Int : 430 ms P-R-T Axes : 072 -67 063 degrees QTc Int : 464 ms Normal sinus rhythm Left anterior fascicular block Abnormal ECG When compared with ECG of 15-JAN-2023 08:19, Vent. rate has increased BY 25 BPM QT has lengthened Confirmed by JEAN PAUL GUTIÉRREZ DO ([id number]) on 07/24/2023 3:51:38 PM Referred By: Electronically Signed By:JEAN PAUL GUTIÉRREZ DO Transcribed By: MUS Signed By Jean Paul Gutiérrez DO 07/24 1551 Normal [facility] Eosinophils Auto (Bld) [#/Vo l]Ordered By: Jean Paul Gutiérrze on 07-24-2023 Eosinophils (Bld) [#/Vol] 0.1 10*3/uL 0.0-0.45 [facility] Eosinophils/100 WBC Auto (Bl d)Ordered By: Jean Paul Gutiérrez on 07-24-2023 Eosinophils/100 WBC (Bld) 1.0 % . [facility] Erythrocyte distribution wid th Auto (RBC) [Ratio]Ordered By: Jean Paul Guitérrez on 07-24-2023 Erythrocyte distribution width (RBC) [Ratio] 12.4 % 12.0-14.8 [facility] Globulin Calc (S) [Mass/Vol] Ordered By: Jean Paul Gutiérrez on 07-24-2023 Globulin (S) [Mass/Vol] 3.5 g/dL [facility] Glucose [Mass/volume] in Ser um or PlasmaOrdered By: Jean Paul Gutiérrez on 07-24-2023 Glucose [Mass/Vol] 128 mg/dL 70-100 [facility] Comment on above: ADA recommended refe rence rangeRandom Glucose Reference Range is dependent on time and content of last meal. Glucose of more than 200 mg/dL in a nonstressed, ambulatory subject supports the diagnosis of Diabetes Mellitus. Hematocrit Auto (Bld) [Volum e fraction]Ordered By: Jean Paul Gutiérrez on 07-24-2023 Hematocrit (Bld) [Volume fraction] 40.5 % 38.8-50.0 [facility] Hemoglobin [Mass/volume] in BloodOrdered By: Jean Paul Gutiérrez on 07-24-2023 Hemoglobin (Bld) [Mass/Vol] 13.7 g/dL 13.0-17.0 [facility] Hepatic Panelon 07-24-2023 Albumin [Mass/Vol] 4.3 g/dL Normal 3.5-5.7 [facility] Comment on above: Performed By: #### C MP, CBC #### [address] Albumin/Globulin [Mass ratio] 1.2 {ratio} Normal [facility] Comment on above: Performed By: #### C MP, CBC #### [address] ALP [Catalytic activity/Vol] 72 U/L Normal 34-104 [facility] Comment on above: Performed By: #### C MP, CBC #### [address] ALT [Catalytic activity/Vol] 12 U/L Normal 7-52 [facility] Comment on above: Performed By: #### C MP, CBC #### [address] AST [Catalytic activity/Vol] 24 U/L Normal 13-39 [facility] Comment on above: Performed By: #### C MP, CBC #### [facility] [address] [place] [address] Bilirubin [Mass/Vol] 0.8 mg/dL Normal 0.3-1.0 [facility] Comment on above: Performed By: #### C MP, CBC #### [facility] [address] [place] [address] [place] Bilirubin,Indirect 0.6 mg/dL Normal [facility] Comment on above: Performed By: #### C MP, CBC #### [facility] [address] [place] [address] [place] Bilirubin.indirect [Mass/Vol] 0.20 mg/dL High 0.03-0.18 [facility] Comment on above: Performed By: #### C MP, CBC #### [facility] [address] [place] [address] Globulin (S) [Mass/Vol] 3.5 g/dL Normal [facility] Comment on above: Performed By: #### C MP, CBC #### [facility] [address] [place] [address] [place] Protein [Mass/Vol] 7.8 g/dL Normal 6.4-8.9 [facility] Comment on above: Performed By: #### C MP, CBC #### [facility] [address] [place] [address] [place] INR in Platelet poor plasma by Coagulation assayOrdered By: Jean Paul Gutiérrez on 07-24-2023 INR Coag (PPP) [Relative time] 1.0 {INR} [facility] Comment on above: INR Therapeutic Rang e A) Pre- and Peroperative OAT started two weeks before surgery. NOT HIP SURGERY: 1.5 - 2.5 HIP SURGERY: 2 - 3B) Primary and secondary prevention of venous THROMBOSIS: 2 - 3C) Active venous thrombosis, pulmonary embolismand prevention of recurrent venous thrombosis: 2 - 3D) Prevention of arterial thromboembolismincluding patients with mechanical heart valves: 3 - 4.5 Ketones Auto test strip (U) [Mass/Vol]Ordered By: Jean Paul Gutiérrez on 07-24-2023 Ketones (U) [Mass/Vol] Trace Negative [facility] Laboratory - UrinalysisOrder ed By: Jean Paul Gutiérrez on 07-24-2023 Hyaline casts LM Ql (Urine sed) None seen [LPF] 0-8 [facility] Leukocytes [#/volume] correc johnnie for nucleated erythrocytes in Blood by Automated counOrdered By: Jean Paul Gutiérrez on 07-24-2023 WBC corrected for nucl RBC Auto (Bld) [#/Vol] 7.3 10*3/uL 4.1-10.5 [facility] Lipaseon 07-24-2023 Lipase [Catalytic activity/Vol] 90.0 U/L High 11.0-82.0 [facility] Comment on above: Result Comment: PERF ORMED BY: [place] [address] PATHOLOGIST PRODUCTION OFFICER RAHEL TREVINO M.D. Performed By: #### C MP, CBC #### [facility] [address] [place] [address] [place] Lipase [Enzymatic activity/v olume] in Serum or PlasmaOrdered By: Jean Paul Gutiérrez on 07-24-2023 Lipase [Catalytic activity/Vol] 90.0 U/L 11.0-82.0 [facility] Lymphocytes Auto (Bld) [#/Vo l]Ordered By: Jean Paul Gutiérrez on 07-24-2023 Lymphocytes (Bld) [#/Vol] 0.9 10*3/uL 1.00-4.8 [facility] Lymphocytes/100 WBC Auto (Bl d)Ordered By: Jean Paul Gutiérrez on 07-24-2023 Lymphocytes/100 WBC (Bld) 12.6 % . [facility] MCH Auto (RBC) [Entitic mass ]Ordered By: Jean Paul Gutiérrez on 07-24-2023 MCH (RBC) [Entitic mass] 29.8 pg 27.5-35.2 [facility] MCHC Auto (RBC) [Mass/Vol]Or dered By: Jean Paul Gutiérrez on 07-24-2023 MCHC (RBC) [Mass/Vol] 33.8 g/dL 32.5-35.6 [facility] MCV Auto (RBC) [Entitic vol] Ordered By: Jean Paul Gutiérrez on 07-24-2023 MCV (RBC) [Entitic vol] 88.1 fL 83.5-101 [facility] Magnesiumon 07-24-2023 Magnesium [Mass/Vol] 2.1 mg/dL Normal 1.9-2.7 [facility] Comment on above: Performed By: #### C MP, CBC #### [facility] [address] [place] [address] Magnesium [Mass/volume] in S sadi or PlasmaOrdered By: Gela Eller on 07-24-2023 Magnesium [Mass/Vol] 2.1 mg/dL 1.9-2.7 [facility] Monocyte distribution width [Entitic volume] in Blood by AutomatedOrdered By: Jean Paul Gutiérrez on 07-24-2023 Monocyte distribution width Auto (Bld) [Entitic vol] 21.73 % 0.00-20.00 [facility] Comment on above: For adults in ED, MD W > 20.0 may be associated with a higher risk of sepsis during the first 12 hrs of hospital admission Monocytes Auto (Bld) [#/Vol] Ordered By: Jean Paul Gutiérrez on 07-24-2023 Monocytes (Bld) [#/Vol] 0.8 10*3/uL 0.0-0.8 [facility] Monocytes/100 WBC Auto (Bld) Ordered By: Jean Paul Gutiérrez on 07-24-2023 Monocytes/100 WBC (Bld) 10.3 % . [facility] Neutrophils Auto (Bld) [#/Vo l]Ordered By: JeanP aul Gutiérrez on 07-24-2023 Neutrophils (Bld) [#/Vol] 5.5 10*3/uL 1.8-7.7 [facility] Neutrophils/100 WBC Auto (Bl d)Ordered By: Jean Paul Gutiérrez on 07-24-2023 Neutrophils/100 WBC (Bld) 75.6 % . [facility] Nitrite Test strip Ql (U)Ord ered By: Jean Paul Gutiérrez on 07-24-2023 Nitrite Ql (U) Negative Negative [facility] No Panel InformationOrdered By: Jean Paul Gutiérrez on 07-24-2023 Estimated GFR (CKD-EPI) 13.168 mL/Min [facility] Creatinine Clearance (Chem 15.40 [facility] Nucleated erythrocytes [Pres ence] in Blood by Automated countOrdered By: Jean Paul Gutiérrez on 07-24-2023 Nucleated RBC Auto Ql (Bld) 0.2 /100{WBC} 0-0.5 [facility] Platelet mean volume Auto (B ld) [Entitic vol]Ordered By: Jean Paul Gutiérrez on 07-24-2023 Platelet mean volume (Bld) [Entitic vol] 10.8 fL 6.6-10.1 [facility] Platelets Auto (Bld) [#/Vol] Ordered By: Jean Paul Gutiérrez on 07-24-2023 Platelets (Bld) [#/Vol] 256 10*3/uL 150-450 [facility] Potassium [Moles/volume] in Serum or PlasmaOrdered By: Jean Paul Gutiérrez on 07-24-2023 Potassium [Moles/Vol] 2.9 mmol/L 3.5-5.1 [facility] Comment on above: Critical Result Call ed to and read back by: ANDREAS CARABALLO at: 07/24/2023 13:30:58 by:MLG Protein Auto test strip (U) [Mass/Vol]Ordered By: Jean Paul Gutiérrez on 07-24-2023 Protein (U) [Mass/Vol] 30 mg/dL Negative [facility] Protein [Mass/volume] in Ser um or PlasmaOrdered By: Jean Paul Gutiérrez on 07-24-2023 Protein [Mass/Vol] 7.8 g/dL 6.4-8.9 [facility] Prothrombin Time INRon 07-24 INR Coag (PPP) [Relative time] 1.0 {INR} Normal [facility] Comment on above: Result Comment: INR Therapeutic Range A) Pre- and Peroperative OAT started two weeks before surgery. NOT HIP SURGERY: 1.5 - 2.5 HIP SURGERY: 2 - 3 B) Primary and secondary prevention of venous THROMBOSIS: 2 - 3 C) Active venous thrombosis, pulmonary embolism and prevention of recurrent venous thrombosis: 2 - 3 D) Prevention of arterial thromboembolism including patients with mechanical heart valves: 3 - 4.5 PERFORMED BY: [place] [address] PATHOLOGIST PRODUCTION OFFICER RAHEL TREVINO M.D. Performed By: #### C MP, CBC #### [facility] [address] [place], [place] [id number] [facility] PT Coag (PPP) [Time] 12.2 s Normal 9.0-12.9 [facility] Comment on above: Result Comment: A matocrit value greater than 55% may lead to inaccurate results in coagulation testing. Patients having hematocrit values >55% require a special collection tube for coagulation studies. Please contact the laboratory at [phone] for redraw instructions. Performed By: #### C MP, CBC #### [facility] [address] [place] [address] [facility] Prothrombin time (PT)Ordered By: Jean Paul Gutiérrez on 07-24-2023 PT Coag (PPP) [Time] 12.2 s 9.0-12.9 [facility] Comment on above: A hematocrit value g reater than 55% may lead to inaccurate results in coagulation testing. Patients having hematocrit values >55% require a special collection tube for coagulation studies. Please contact the laboratory at [phone] for redraw instructions. RBC Auto (Bld) [#/Vol]Ordere d By: Jean Paul Gutiérrez on 07-24-2023 RBC (Bld) [#/Vol] 4.60 10*6/uL 3.90-5.60 [facility] Serum or plasma albumin/glob ulin mass ratioOrdered By: Jean Paul Gutiérrez on 07-24-2023 Albumin/Globulin [Mass ratio] 1.2 {ratio} [facility] Serum or plasma anion gap de terminationOrdered By: Jean Paul Gutiérrez on 07-24-2023 Anion gap [Moles/Vol] 18.0 mmol/L 6.0-15.0 [facility] Serum or plasma non-glucuron idated bilirubin measurement (mass/volume)Ordered By: Jean Paul Gutiérrze on 07-24-2023 Bilirubin.indirect [Mass/Vol] 0.6 mg/dL [facility] Sodium [Moles/volume] in Ser um or PlasmaOrdered By: Jean Paul Gutiérrez on 07-24-2023 Sodium [Moles/Vol] 134 mmol/L 136-145 [facility] Sodium [Moles/volume] in Uri neOrdered By: Gela Eller on 07-24-2023 Sodium (U) [Moles/Vol] 41 mmol/L [facility] Comment on above: No reference range e stablished Specific gravity Auto test s trip (U) [Rel density]Ordered By: Jean Paul Gutiérrez on 07-24-2023 Specific gravity (U) [Rel density] 1.015 1.001-1.03 0 [facility] Squamous epithelial cells de tection in urine sediment by light microscopyOrdered By: Jean Paul Gutiérrez on 07-24-2023 Epithelial cells.squamous LM Ql (Urine sed) None seen [HPF] 0-2 [facility] Troponin I High Sensitivityo n 07-24-2023 Troponin I High Sensitivity 11.8 pg/mL Normal 0.0-20.0 [facility] Comment on above: Result Comment: PERF ORMED BY: [facility] [address] [place] [address] PATHOLOGIST PRODUCTION OFFICER JIANLAN SUN M.D. Performed By: #### C MP, CBC #### [address] Troponin I.cardiac [Mass/vol ume] in Serum or Plasma by Detection limit <= 0.01 ng/Ordered By: Jean Paul Gutiérrez on 07-24-2023 Troponin I.cardiac DL <= 0.01 ng/mL [Mass/Vol] 11.8 pg/mL 0.0-20.0 [facility] Urea nitrogen [Mass/volume] in Serum or PlasmaOrdered By: Jean Paul Gutiérrez on 07-24-2023 Urea nitrogen [Mass/Vol] 56 mg/dL 03-18 [facility] Urine bacteria detection by automated methodOrdered By: Jean Paul Gutiérrez on 07-24-2023 Bacteria Auto Ql (U) None seen None Seen [facility] Urine clarity by refractomet ry automatedOrdered By: Jean Paul Gutiérrez on 07-24-2023 Clarity Refractometry automated (U) Clear Clear [facility] Urine glucose measurement by automated test strip (mass/volume)Ordered By: Jean Paul Gutirérez on 07-24-2023 Glucose Auto test strip (U) [Mass/Vol] Normal mg/dL Normal [facility] Urine hemoglobin detection b y automated test stripOrdered By: Jean Paul Gutiérrez on 07-24-2023 Hemoglobin Auto test strip Ql (U) Negative Negative [facility] Urine leukocyte esterase det ection by automated test stripOrdered By: Jean Paul Gutiérrez on 07-24-2023 Leukocyte esterase Auto test strip Ql (U) Negative Negative [facility] Urobilinogen Auto test strip (U) [Mass/Vol]Ordered By: Jean Paul Gutiérrez on 07-24-2023 Urobilinogen (U) [Mass/Vol] Normal mg/dL Normal [facility] WBC Auto (Bld) [#/Vol]Ordere d By: Jean Paul Gutiérrez on 07-24-2023 WBC (Bld) [#/Vol] 7.3 10*3/uL 4.1-10.5 [facility] pH Auto test strip (U)Ordere d By: Jean Paul Gutiérrez on 07-24-2023 pH (U) 5.5 [pH] 5.0-9.0 [facility] Tobacco Screening.on 023 Tobacco use status CPHS b) No [facility] [address] DO Work Phone: Activated partial thrombopla stin time (aPTT) in platelet poor plasma by coagulation aOrdered By: Joselito Madsen on 01-15-2023 aPTT Coag (PPP) [Time] 29.1 s 25.1-36.5 [facility] Basophils Auto (Bld) [#/Vol] Ordered By: Joselito Madsen on 01-15-2023 Basophils (Bld) [#/Vol] 0.0 10*3/uL 0.0-0.2 [facility] Basophils/100 WBC Auto (Bld) Ordered By: Joselito Madsen on 01-15-2023 Basophils/100 WBC (Bld) 0.7 % . [facility] Blood Urea Nitrogenon 2022 Urea nitrogen [Mass/Vol] 19 mg/dL Normal 7-25 [facility] Comment on above: Performed By: #### C REAT, PP, LYTES, LIPID, CBC, BUN #### [address] Carbon dioxide, total [Moles /volume] in Serum or PlasmaOrdered By: Joselito Madsen on 01-15-2023 CO2 [Moles/Vol] 24.1 mmol/L 21.0-31.0 [facility] Chloride [Moles/volume] in S sadi or PlasmaOrdered By: Joselito Madsen on 01-15-2023 Chloride [Moles/Vol] 108 mmol/L 98-107 [facility] Cholesterol [Mass/volume] in Serum or PlasmaOrdered By: Joselito Madsen on 01-15-2023 Cholesterol [Mass/Vol] 123 mg/dL 140-200 [facility] Comment on above: Chol less than 200 m g/dl low riskChol 201-239 mg/dl borderline riskChol 240 mg/dl and greater high risk Cholesterol in LDL Calc [Mas s/Vol]Ordered By: Joselito Madsen on 01-15-2023 Cholesterol in LDL [Mass/Vol] 49 mg/dL 0-100 [facility] Comment on above: LDL ATP III CLASSIFI CATIONLDL less than 100 mg/dL OptimalLDL 100-129 mg/dL Near or above optimalLDL 130-159 mg/dL Borderline highLDL 160-189 mg/dL HighLDL greater than 189 mg/dL Very high Cholesterol in VLDL Calc [Ma ss/Vol]Ordered By: Joselito Madsen on 01-15-2023 Cholesterol in VLDL [Mass/Vol] 10 mg/dL [facility] Coagulation Profileon 2022 aPTT Coag (Bld) [Time] 29.1 s Normal 25.1-36.5 [facility] Comment on above: Result Comment: PERF ORMED BY: [place] [address] PATHOLOGIST PRODUCTION OFFICER RAHEL TREVINO M.D. Performed By: #### C REAT, PP, LYTES, LIPID, CBC, BUN #### [facility] [address] INR Coag (PPP) [Relative time] 1.0 {INR} Normal [facility] Comment on above: Result Comment: INR Therapeutic Range A) Pre- and Peroperative OAT started two weeks before surgery. NOT HIP SURGERY: 1.5 - 2.5 HIP SURGERY: 2 - 3 B) Primary and secondary prevention of venous THROMBOSIS: 2 - 3 C) Active venous thrombosis, pulmonary embolism and prevention of recurrent venous thrombosis: 2 - 3 D) Prevention of arterial thromboembolism including patients with mechanical heart valves: 3 - 4.5 Performed By: #### C REAT, PP, LYTES, LIPID, CBC, BUN #### [facility] [address] [place] [address] [place] PT Coag (PPP) [Time] 11.0 s Normal 9.0-12.9 [facility] Comment on above: Performed By: #### C REAT, PP, LYTES, LIPID, CBC, BUN #### [facility] [address] Complete Blood Count Auto Di ffon 01-15-2023 Basophils (Bld) [#/Vol] 0.0 10*3/uL Normal 0.0-0.2 [facility] Comment on above: Result Comment: PERF ORMED BY: [place] [address] PATHOLOGIST PRODUCTION OFFICER RAHEL TREVINO M.D. Performed By: #### C REAT, PP, LYTES, LIPID, CBC, BUN #### [address] Basophils/100 WBC (Bld) 0.7 % Normal . [facility] Comment on above: Performed By: #### C REAT, PP, LYTES, LIPID, CBC, BUN #### [address] Eosinophils (Bld) [#/Vol] 0.5 10*3/uL High 0.0-0.45 [facility] Comment on above: Performed By: #### C REAT, PP, LYTES, LIPID, CBC, BUN #### [address] Eosinophils/100 WBC (Bld) 9.6 % Normal . [facility] Comment on above: Performed By: #### C REAT, PP, LYTES, LIPID, CBC, BUN #### [address] Erythrocyte distribution width (RBC) [Ratio] 13.3 % Normal 12.0-14.8 [facility] Comment on above: Performed By: #### C REAT, PP, LYTES, LIPID, CBC, BUN #### [address] Hematocrit (Bld) [Volume fraction] 38.8 % Normal 38.8-50.0 [facility] Comment on above: Performed By: #### C REAT, PP, LYTES, LIPID, CBC, BUN #### [address] Hemoglobin (Bld) [Mass/Vol] 12.7 g/dL Low 13.0-17.0 [facility] Comment on above: Performed By: #### C REAT, PP, LYTES, LIPID, CBC, BUN #### [address] Lymphocytes (Bld) [#/Vol] 1.0 10*3/uL Normal 1.00-4.8 [facility] Comment on above: Performed By: #### C REAT, PP, LYTES, LIPID, CBC, BUN #### [address] Lymphocytes/100 WBC (Bld) 19.2 % Normal . [facility] Comment on above: Performed By: #### C REAT, PP, LYTES, LIPID, CBC, BUN #### [address] MCH (RBC) [Entitic mass] 29.2 pg Normal 27.5-35.2 [facility] Comment on above: Performed By: #### C REAT, PP, LYTES, LIPID, CBC, BUN #### [address] MCV (RBC) [Entitic vol] 89.1 fL Normal 83.5-101 [facility] Comment on above: Performed By: #### C REAT, PP, LYTES, LIPID, CBC, BUN #### [address] Mean Corpuscular HGB Conc 32.7 g/dL Normal 32.5-35.6 [facility] Comment on above: Performed By: #### C REAT, PP, LYTES, LIPID, CBC, BUN #### [address] Monocytes (Bld) [#/Vol] 0.9 10*3/uL High 0.0-0.8 [facility] Comment on above: Performed By: #### C REAT, PP, LYTES, LIPID, CBC, BUN #### [address] Monocytes/100 WBC (Bld) 17.1 % Normal . [facility] Comment on above: Performed By: #### C REAT, PP, LYTES, LIPID, CBC, BUN #### [address] Neutrophils (Bld) [#/Vol] 2.7 10*3/uL Normal 1.8-7.7 [facility] Comment on above: Performed By: #### C REAT, PP, LYTES, LIPID, CBC, BUN #### [address] Neutrophils/100 WBC (Bld) 53.4 % Normal . [facility] Comment on above: Performed By: #### C REAT, PP, LYTES, LIPID, CBC, BUN #### [address] NRBC% 0.1 /100{WBC} Normal 0-0.5 [facility] Comment on above: Performed By: #### C REAT, PP, LYTES, LIPID, CBC, BUN #### [address] Platelet mean volume (Bld) [Entitic vol] 9.0 fL Normal 6.6-10.1 [facility] Comment on above: Performed By: #### C REAT, PP, LYTES, LIPID, CBC, BUN #### [address] Platelets (Bld) [#/Vol] 170 10*3/uL Normal 150-450 [facility] Comment on above: Performed By: #### C REAT, PP, LYTES, LIPID, CBC, BUN #### [address] RBC (Bld) [#/Vol] 4.36 10*6/uL Normal 3.90-5.60 [facility] Comment on above: Performed By: #### C REAT, PP, LYTES, LIPID, CBC, BUN #### [address] WBC (Bld) [#/Vol] 5.0 10*3/uL Normal 4.1-10.5 [facility] Comment on above: Performed By: #### C REAT, PP, LYTES, LIPID, CBC, BUN #### [address] Creatinineon 05-24-2023 Creatinine [Mass/Vol] 1.22 mg/dL Normal 0.70-1.30 [facility] Comment on above: Performed By: #### C REAT, PP, LYTES, LIPID, CBC, BUN #### [facility] [address] [place] [id number] [place] GFR/1.73 sq M.predicted MDRD (S/P/Bld) [Vol rate/Area] mL/min/{1.73_m2} Normal [facility] Comment on above: Performed By: #### C REAT, PP, LYTES, LIPID, CBC, BUN #### [facility] [address] Creatinine [Mass/volume] in Serum or PlasmaOrdered By: Joselito Madsen on 01-15-2023 Creatinine [Mass/Vol] 1.22 mg/dL 0.70-1.30 [facility] ECG 12 lead ECGon 01-15-2023 ECG 12 lead ECG [facility] [address] [place] [address] [place] [address] Electrocardiograph Report Signed Patient: Aisha Julien MR#: [id number] : 1955 Acct:[id number] Age/Sex: 67 / M ADM Date: 01/15/23 Loc: Room: Type: [facility] Attending Dr: Joselito Madsen DO Ordering Provider: Joselito Madsen DO Date of Service: 01/15/23 ECG/ECG 12 lead ECG: [facility] Copies to: Test Reason : Blood Pressure : / mmHG Vent. Rate : 045 BPM Atrial Rate : 045 BPM P-R Int : 172 ms QRS Dur : 110 ms QT Int : 442 ms P-R-T Axes : 043 -38 026 degrees QTc Int : 382 ms Marked sinus bradycardia Left axis deviation Poor anterior R wave progression Abnormal ECG When compared with ECG of 13-AUG-2021 11:34, No significant change was found Confirmed by PATY MACKEY MD ([id number]) on 01/15/2023 7:44:09 PM Referred By: CALE Electronically Signed By:PATY MACKEY MD Transcribed By: MUS Signed By Paty Mackey MD 1944 Normal [facility] Electrolyteson 01-15-2023 Anion gap [Moles/Vol] 10.5 mmol/L Normal 6.0-15.0 [facility] Comment on above: Performed By: #### C REAT, PP, LYTES, LIPID, CBC, BUN #### [facility] [address] Chloride [Moles/Vol] 108 mmol/L High 98-107 [facility] Comment on above: Performed By: #### C REAT, PP, LYTES, LIPID, CBC, BUN #### [address] CO2 [Moles/Vol] 24.1 mmol/L Normal 21.0-31.0 [facility] Comment on above: Performed By: #### C REAT, PP, LYTES, LIPID, CBC, BUN #### [address] Potassium [Moles/Vol] 4.6 mmol/L Normal 3.5-5.1 [facility] Comment on above: Performed By: #### C REAT, PP, LYTES, LIPID, CBC, BUN #### [address] Sodium [Moles/Vol] 138 mmol/L Normal 136-145 [facility] Comment on above: Performed By: #### C REAT, PP, LYTES, LIPID, CBC, BUN #### [place] [address] [place] Eosinophils Auto (Bld) [#/Vo l]Ordered By: Joselito Madsen on 01-15-2023 Eosinophils (Bld) [#/Vol] 0.5 10*3/uL 0.0-0.45 [facility] Eosinophils/100 WBC Auto (Bl d)Ordered By: Joselito Madsen on 01-15-2023 Eosinophils/100 WBC (Bld) 9.6 % . [facility] Erythrocyte distribution wid th Auto (RBC) [Ratio]Ordered By: Joselito Madsen on 01-15-2023 Erythrocyte distribution width (RBC) [Ratio] 13.3 % 12.0-14.8 [facility] Hematocrit Auto (Bld) [Volum e fraction]Ordered By: Joselito Madsen on 01-15-2023 Hematocrit (Bld) [Volume fraction] 38.8 % 38.8-50.0 [facility] Hemoglobin [Mass/volume] in BloodOrdered By: Joselito Madsen on 01-15-2023 Hemoglobin (Bld) [Mass/Vol] 12.7 g/dL 13.0-17.0 [facility] Laboratory - Chemistry and C hemistry - challengeon 01-15-2023 Cholesterol [Mass/Vol] 123\S\123 below low threshold 140-200 -[facility] DO Work Phone: Comment on above: Chol less than 200 m g/dl low risk Chol 201-239 mg/dl borderline risk Chol 240 mg/dl and greater high risk Cholesterol in LDL [Mass/Vol] 49\S\49 Normal 0-100 [facility] y 250 DO Work Phone: Comment on above: LDL ATP III CLASSIFI CATION LDL less than 100 mg/dL Optimal LDL 100-129 mg/dL Near or above optimal LDL 130-159 mg/dL Borderline high LDL 160-189 mg/dL High LDL greater than 189 mg/dL Very high Laboratory - CoagulationOrde red By: Joselito Madsen on 01-15-2023 PT Coag (PPP) [Time] 11.0 s 9.0-12.9 [facility] Leukocytes [#/volume] correc johnnie for nucleated erythrocytes in Blood by Automated counOrdered By: Joselito Madsen on 01-15-2023 WBC corrected for nucl RBC Auto (Bld) [#/Vol] 5.0 10*3/uL 4.1-10.5 [facility] Lipid Panelon 01-15-2023 Cholesterol [Mass/Vol] 123 mg/dL Low 140-200 [facility] Comment on above: Result Comment: Chol less than 200 mg/dl low risk Chol 201-239 mg/dl borderline risk Chol 240 mg/dl and greater high risk Performed By: #### C MP, CBC #### [facility] [address] Cholesterol in HDL [Mass/Vol] 64 mg/dL Normal 29-71 [facility] Comment on above: Result Comment: HDL CHOL ATP-III CLASSIFICATION Cardiovascular Risk HDL > or equal to 60 mg/dL LOW HDL < 40 mg/dL HIGH Performed By: #### C MP, CBC #### [facility] [address] Cholesterol.total/Cho lesterol in HDL [Mass ratio] 1.9 {ratio} Normal <5.0 [facility] Comment on above: Result Comment: PERF ORMED BY: [place] [address] PATHOLOGIST PRODUCTION OFFICER RAHEL TREVINO M.D. Performed By: #### C MP, CBC #### [address] LDL Cholesterol,Calculate d 49 mg/dL Normal 0-100 [facility] Comment on above: Result Comment: LDL ATP III CLASSIFICATION LDL less than 100 mg/dL Optimal LDL 100-129 mg/dL Near or above optimal LDL 130-159 mg/dL Borderline high LDL 160-189 mg/dL High LDL greater than 189 mg/dL Very high Performed By: #### C MP, CBC #### [address] Triglyceride w/Reflex 51 mg/dL Normal 0-149 [facility] Comment on above: Result Comment: TRIG ATP III CLASSIFICATION TRIG less than 150 mg/dL Normal TRIG 150-199 mg/dL Borderline high TRIG 200-500 mg/dL High TRIG greater than 500 mg/dL Very high Standard traceable to the Center for Disease Conrtrol and Prevention (CDC) test method. Performed By: #### C MP, CBC #### [facility] [address] [place] [address] [place] VLDL CHOLESTEROL 10 mg/dL Normal [facility] Comment on above: Performed By: #### C MP, CBC #### [facility] [address] [place] [address] [place] Lymphocytes Auto (Bld) [#/Vo l]Ordered By: Joselito Madsen on 01-15-2023 Lymphocytes (Bld) [#/Vol] 1.0 10*3/uL 1.00-4.8 [facility] Lymphocytes/100 WBC Auto (Bl d)Ordered By: Joselito Madsen on 01-15-2023 Lymphocytes/100 WBC (Bld) 19.2 % . [facility] MCH Auto (RBC) [Entitic mass ]Ordered By: Joselito Madsen on 01-15-2023 MCH (RBC) [Entitic mass] 29.2 pg 27.5-35.2 [facility] MCHC Auto (RBC) [Mass/Vol]Or dered By: Joselito Madsen on 01-15-2023 MCHC (RBC) [Mass/Vol] 32.7 g/dL 32.5-35.6 [facility]ir [facility] MCV Auto (RBC) [Entitic vol] Ordered By: Joselito Madsen on 01-15-2023 MCV (RBC) [Entitic vol] 89.1 fL 83.5-101 [facility] Monocytes Auto (Bld) [#/Vol] Ordered By: Joselito Madsen on 01-15-2023 Monocytes (Bld) [#/Vol] 0.9 10*3/uL 0.0-0.8 [facility] Monocytes/100 WBC Auto (Bld) Ordered By: Joselito Madsen on 01-15-2023 Monocytes/100 WBC (Bld) 17.1 % . [facility] Neutrophils Auto (Bld) [#/Vo l]Ordered By: Joselito Madsen on 01-15-2023 Neutrophils (Bld) [#/Vol] 2.7 10*3/uL 1.8-7.7 [facility] Neutrophils/100 WBC Auto (Bl d)Ordered By: Joselito Madsen on 01-15-2023 Neutrophils/100 WBC (Bld) 53.4 % . [facility] No Panel InformationOrdered By: Joselito Madsen on 01-15-2023 Estimated GFR (CKD-EPI) > 60.0 mL/Min [facility] Creatinine Clearance (Chem N/A [facility] No Panel Informationon 01-15 0.0\S\0.0 Normal 0.0-0.2 -[facility] [address] DO Work Phone: [phone] Comment on above: PERFORMED BY:[facility] [place], [place] [id number] MEDICAL DIRECTORRAHEL TREVINO M.D. 0.5\S\0.5 above high threshold 0.0-0.45 [facility] [address] DO Work Phone: [phone] 0.9\S\0.9 above high threshold 0.0-0.8 [facility] [address] DO Work Phone: [phone] 1.0\S\1.0 Normal -[facility] [address] DO Work Phone: Comment on above: INR Therapeutic Rang e A) Pre- and Peroperative OAT started two weeks before surgery. NOT HIP SURGERY: 1.5 - 2.5 HIP SURGERY: 2 - 3 B) Primary and secondary prevention of venous THROMBOSIS: 2 - 3 C) Active venous thrombosis, pulmonary embolism and prevention of recurrent venous thrombosis: 2 - 3 D) Prevention of arterial thromboembolism including patients with mechanical heart valves: 3 - 4.5 2.7\S\2.7 Normal 1.8-7.7 [facility] [address] DO Work Phone: [phone] 0.1\S\0.1 Normal 0-0.5 [facility] [address] DO Work Phone: [phone] 0.7\S\0.7 Normal . [facility] [address] DO Work Phone: [phone] 9.6\S\9.6 Normal . [facility] [address] DO Work Phone: [phone] 17.1\S\17.1 Normal . [facility] [address] DO Work Phone: [phone] 19.2\S\19.2 Normal . [facility] [address] DO Work Phone: [phone] 53.4\S\53.4 Normal . [facility] 250 DO Work Phone: 9.0\S\9.0 Normal 6.6-10.1 [facility] 250 DO Work Phone: 170\S\170 Normal 150-450 [facility] [address] DO Work Phone: 13.3\S\13.3 Normal 12.0-14.8 [facility] [address] DO Work Phone: 32.7\S\32.7 Normal 32.5-35.6 [facility] 250 DO Work Phone: 29.2\S\29.2 Normal 27.5-35.2 [facility] [address] DO Work Phone: 89.1\S\89.1 Normal 83.5-101 [facility] Heart[facility] cosme 250 DO Work Phone: 38.8\S\38.8 Normal 38.8-50.0 [facility] [address] DO Work Phone: 12.7\S\12.7 below low threshold 13.0-17.0 [facility] 250 DO Work Phone: 4.36\S\4.36 Normal 3.90-5.60 [facility] 250 DO Work Phone: 5.0\S\5.0 Normal 4.1-10.5 [facility] 250 DO Work Phone: 29.1\S\29.1 Normal 25.1-36.5 [facility] 250 DO Work Phone: Comment on above: PERFORMED BY:[place] [address] [place], [place] [phone] MEDICAL DIRECTORRAHEL TREVINO M.D. 11.0\S\11.0 Normal 9.0-12.9 [facility] [address] DO Work Phone: [phone] 10.5\S\10.5 Normal 6.0-15.0 [facility] 250 DO Work Phone: [phone] 24.1\S\24.1 Normal 21.0-31.0 [facility] 250 DO Work Phone: [phone] 108\S\108 above high threshold 98-107 [facility] 250 DO Work Phone: [phone] 4.6\S\4.6 Normal 3.5-5.1 [facility] 250 DO Work Phone: [phone] 138\S\138 Normal 136-145 [facility] cosme 250 DO Work Phone: [phone] 19\S\19 Normal 7-25 [facility] 250 DO Work Phone: [phone] > 60.0 Normal [facility] 250 DO Work Phone: [phone] 1.22\S\1.22 Normal 0.70-1.30 [facility] 250 DO Work Phone: [phone] 1.9\S\1.9 Normal <5.0 [facility] 250 DO Work Phone: [phone] Comment on above: PERFORMED BY:[facility] [place], [place] [phone] MEDICAL DIRECTORRAHEL TREVINO M.D. 10\S\10 Normal [facility] 250 DO Work Phone: [phone] 51\S\51 Normal 0-149 [facility] 250 DO Work Phone: [phone] Comment on above: TRIG ATP III CLASSIF ICATION TRIG less than 150 mg/dL Normal TRIG 150-199 mg/dL Borderline high TRIG 200-500 mg/dL High TRIG greater than 500 mg/dL Very high Standard traceable to the Center for Disease Conrtrol and Prevention (CDC) test method. 64\S\64 Normal 29-71 -[facility] [address] DO Work Phone: Comment on above: HDL CHOL ATP-III CLA SSIFICATION Cardiovascular Risk HDL > or equal to 60 mg/dL LOW HDL < 40 mg/dL HIGH Nucleated erythrocytes [Pres ence] in Blood by Automated countOrdered By: Joselito Madsen on 01-15-2023 Nucleated RBC Auto Ql (Bld) 0.1 /100{WBC} 0-0.5 [facility] Platelet mean volume Auto (B ld) [Entitic vol]Ordered By: Joselito Madsen on 01-15-2023 Platelet mean volume (Bld) [Entitic vol] 9.0 fL 6.6-10.1 [facility] Platelet poor plasma interna tional normalized ratio (INR) by coagulation assay (relatOrdered By: Joselito Madsen on 01-15-2023 INR Coag (PPP) [Relative time] 1.0 {INR} [facility] Comment on above: INR Therapeutic Rang e A) Pre- and Peroperative OAT started two weeks before surgery. NOT HIP SURGERY: 1.5 - 2.5 HIP SURGERY: 2 - 3B) Primary and secondary prevention of venous THROMBOSIS: 2 - 3C) Active venous thrombosis, pulmonary embolismand prevention of recurrent venous thrombosis: 2 - 3D) Prevention of arterial thromboembolismincluding patients with mechanical heart valves: 3 - 4.5 Platelets Auto (Bld) [#/Vol] Ordered By: Joselito Madsen on 01-15-2023 Platelets (Bld) [#/Vol] 170 10*3/uL 150-450 [facility] Potassium [Moles/volume] in Serum or PlasmaOrdered By: Joselito Madsen on 01-15-2023 Potassium [Moles/Vol] 4.6 mmol/L 3.5-5.1 [facility] RBC Auto (Bld) [#/Vol]Ordere d By: Joselito Madsen on 01-15-2023 RBC (Bld) [#/Vol] 4.36 10*6/uL 3.90-5.60 [facility] Serum or plasma anion gap de terminationOrdered By: Joselito Madsen on 01-15-2023 Anion gap [Moles/Vol] 10.5 mmol/L 6.0-15.0 [facility] Serum or plasma high density lipoprotein (HDL) cholesterol measurementOrdered By: Joselito Madsen on 01-15-2023 Cholesterol in HDL [Mass/Vol] 64 mg/dL 29-71 [facility] Comment on above: HDL CHOL ATP-III CLA SSIFICATION Cardiovascular RiskHDL > or equal to 60 mg/dL LOWHDL < 40 mg/dL HIGH Serum or plasma total choles terol/high density lipoprotein (HDL) cholesterol mass ratOrdered By: Joselito Madsen on 01-15-2023 Cholesterol.total/Cho lesterol in HDL [Mass ratio] 1.9 {ratio} <5.0 [facility] Sodium [Moles/volume] in Ser um or PlasmaOrdered By: Joselito Madsen on 01-15-2023 Sodium [Moles/Vol] 138 mmol/L 136-145 [facility] Triglyceride [Mass/volume] i n Serum or PlasmaOrdered By: Joselito Madsen on 01-15-2023 Triglyceride [Mass/Vol] 51 mg/dL 0-149 [facility] Comment on above: TRIG ATP III CLASSIF ICATIONTRIG less than 150 mg/dL NormalTRIG 150-199 mg/dL Borderline highTRIG 200-500 mg/dL High TRIG greater than 500 mg/dL Very highStandard traceable to the Center for Disease Conrtrol and Prevention (CDC) test method. Urea nitrogen [Mass/volume] in Serum or PlasmaOrdered By: Joselito Madsen on 01-15-2023 Urea nitrogen [Mass/Vol] 19 mg/dL 7-25 [facility] WBC Auto (Bld) [#/Vol]Ordere d By: Joselito Madsen on 01-15-2023 WBC (Bld) [#/Vol] 5.0 10*3/uL 4.1-10.5 [facility] Tobacco Screening.on 023 Adult depression screening assessment No [facility] 250 DO Work Phone: Fall risk assessment a) No falls within the last year [facility] 250 DO Work Phone: Tobacco use status [facility] b) No -[facility] 250 DO Work Phone: EVENT MONITORon 12-13-2021 [address] MON[address] [address] EVENT MONITOR PATIENT NAME: AISHA JULIEN : 1955 MED REC NO: [id number] ROOM: ACCOUNT NO: [id number] ADMIT DATE: 11/07/2021 PROVIDER: Inocencio Gutierrez NAME OF THE TEST: A 30-day event recorder. INDICATION: Palpitations. The patient wore an event recorder from 11/07/2021 to 12/06/2021. We received a total of 19 rhythm strips. Each rhythm strip showed sinus rhythm. His lightheadedness and shortness of breath occurred when he was having sinus tachycardia with heart rates in the high 90s. His peak heart rate was 144. He had no arrhythmias. His symptoms appeared secondary to mild sinus tachycardia. A low dose of a beta-keshawn such as Inderal could be executed for symptom control. INOCENCIO GUTIERREZ [id number] Doc#: [id number] CC: Rene [facility] CARDIAC STRESS TESTon 2021 CARDIAC STRESS TEST [address] [address] CARDIAC STRESS TEST PATIENT NAME: AISHA JULIEN : 1955 MED REC NO: [id number] ROOM: ACCOUNT NO: [id number] ADMIT DATE: 11/07/2021 PROVIDER: Inocencio Gutierrez DATE OF STUDY: 11/07/2021 TREADMILL STRESS TEST REASON FOR TEST: Chest pain. The patient exercised 3 minutes and 30 seconds on an accelerated Diego protocol achieving 5.5 METs. His peak heart rate was 148 which is 90% of maximum predicated heart rate. He had no chest pain, no ST depression. It was overall unremarkable cardiac stress test with no chest pain or ST depression. He did have a poor exercise capacity, but his O2 saturation remained at 96%. INOCENCIO GUTIERREZ [id number] Doc#: [id number] CC: Rene Cannon Normal [facility] CARDIAC STRESS TESTon 2021 CARDIAC STRESS TEST [facility] [address] [place] [address] CARDIAC STRESS TEST PATIENT NAME: AISHA JULIEN : 1955 MED REC NO: [id number] ROOM: ACCOUNT NO: [id number] ADMIT DATE: 11/07/2021 PROVIDER: Karina Fajardo MD DATE OF STUDY: 11/07/2021 Cardiovascular Diagnostics Department Ordering Provider: Inocencio Gutierrez MD Primary Care Provider: Rene Cannon MD Interpreting Physician: Karina Fajardo MD MYOCARDIAL PERFUSION STRESS IMAGING The stress ECG results are reported separately. NUCLEAR IMAGING RESULTS: The overall quality of the study is fair. Mild attenuation artifact was seen. There is no evidence of abnormal lung uptake. Additionally, the right ventricle appears normal. The left ventricular cavity is noted to be normal in size on stress images. There is borderline evidence of transient ischemic dilatation (TID) of the left ventricle. (TID: 1.21) Gated SPECT imaging reveals normal myocardial thickening and wall motion with a calculated left ventricular ejection fraction (EF) of 68%. The rest images demonstrated a small perfusion abnormality of mild intensity in the apical region(s), which is most likely due to artifact. On stress imaging, a small/moderate perfusion abnormality of mild intensity was noted in the apical region(s), which may be due to artifact. IMPRESSION: 1. Abnormal myocardial perfusion study. There is a small/moderate perfusion defect of mild intensity in the apical region(s) during stress imaging, which is most consistent with ischemia, but may be due to artifact. In addition, transient ischemic dilatation (TID) of the left ventricle is seen, which can be seen with uncontrolled hypertension, severe left main coronary artery disease or severe three-vessel coronary artery disease (TID: 1.21). 2. Global left ventricular systolic function was normal with an EF of 68% without regional wall motion abnormalities. Overall these results are most consistent with a low/intermediate risk for significant coronary artery disease. Depending on the patient's symptoms and level of clinical suspicion, aggressive medical management vs. additional testing by coronary angiography may be indicated. The results of this test were discussed with Dr. Gutierrez on 11/07/2021. KARINA FAJARDO MD LAURYN/CIARAN_RALF Doc#: Unknown CC: Rene Gutierrez Normal [facility] NM MYOCARDIAL SPECT REST EXE RCISE OR RXon 11-07-2021 NM MYOCARDIAL SPECT REST EXERCISE OR RX Radiology exam is complete. No Radiologist dictation. Please follow up with ordering provider. Final result [facility] No Panel Informationon 11-07 Radiology exam is complete. No Radiologist dictation. Please follow up with ordering provider. [facility] CONSOLIDATED STRESS TEST REPORTon 022 Karina Fajardo MD - 11/07/2021 1:54 [place] [address] CARDIAC STRESS TEST PATIENT NAME: AISHA JULIEN : 1955 MED REC NO: [id number] ROOM: ACCOUNT NO: [id number] ADMIT DATE: 11/07/2021 PROVIDER: Karina Fajardo MD DATE OF STUDY: 11/07/2021 Cardiovascular Diagnostics Department Ordering Provider: Inocencio Gutierrez MD Primary Care Provider: Rene Cannon MD Interpreting Physician: Karina Fajardo MD MYOCARDIAL PERFUSION STRESS IMAGING The stress ECG results are reported separately. NUCLEAR IMAGING RESULTS: The overall quality of the study is fair. Mild attenuation artifact was seen. There is no evidence of abnormal lung uptake. Additionally, the right ventricle appears normal. The left ventricular cavity is noted to be normal in size on stress images. There is borderline evidence of transient ischemic dilatation (TID) of the left ventricle. (TID: 1.21) Gated SPECT imaging reveals normal myocardial thickening and wall motion with a calculated left ventricular ejection fraction (EF) of 68%. The rest images demonstrated a small perfusion abnormality of mild intensity in the apical region(s), which is most likely due to artifact. On stress imaging, a small/moderate perfusion abnormality of mild intensity was noted in the apical region(s), which may be due to artifact. IMPRESSION: 1. Abnormal myocardial perfusion study. There is a small/moderate perfusion defect of mild intensity in the apical region(s) during stress imaging, which is most consistent with ischemia, but may be due to artifact. In addition, transient ischemic dilatation (TID) of the left ventricle is seen, which can be seen with uncontrolled hypertension, severe left main coronary artery disease or severe three-vessel coronary artery disease (TID: 1.21). 2. Global left ventricular systolic function was normal with an EF of 68% without regional wall motion abnormalities. Overall these results are most consistent with a low/intermediate risk for significant coronary artery disease. Depending on the patient's symptoms and level of clinical suspicion, aggressive medical management vs. additional testing by coronary angiography may be indicated. The results of this test were discussed with Dr. Gutierrez on 11/07/2021. KARINA FAJARDO MD LAURYN/CIARAN_DESTINEEIT Doc#: Unknown CC: Rene Gutierrez [facility] [email or web address] Work Phone: [facility] [email or web address] Work Phone: VL DUP CAROTID BILATERALon 0 11-07-2021 VL DUP CAROTID BILATERAL Radiology exam is complete. No Radiologist dictation. Please follow up with ordering provider. Final result Normal [facility] Bryan Pichardo Jr., MD - 11/08/2021 [facility] Vascular Carotid Procedure Patient Name MARY BETH LEONARD Date of Study 11/07/2021 L Date of 1955 Gender Male Age 66 year(s) Race Room Number Corporate ID [id number] # Patient Acct [id number] # MR # [id number] Hand Decorator Jocelyn Mcghee, RT Interpreting Estephania Pichardo Physician Referring Referring Physician RENE CANNON, Nurse VERNA* Practitioner ELA RIDDLE * Procedure Type of Study: Cerebral: Carotid, Carotid Scan Bilateral. Indications for Study:Bruit, carotid. Patient Status:Routine. Conclusions Summary Mild increase in prox CCA velocity, without spectral broadening, not considered significant. Minimal plaque right CCA. Negative left sided study. Antegrade flow in the vertebrals. Signature Electronically signed by PERRY Magaña)Lindsey)(CT)([facility])(Sonogra pher) on 11/07/2021 11:33 AM Findings: Right Impression: Left Impression: Heterogeneous plaquing distal Common carotid appears normal. CCA, minimal. External carotid artery appears normal. ECA and ICA appear normal. Minimal spectral broadening of the left Vertebral artery flow is internal carotid artery mid, without antegrade . elevation of peak systolic and end diastolic velocities. Pulsed Doppler, color Doppler Vertebral artery flow is antegrade . and real time sonography of the right carotid system. Pulsed Doppler, color Doppler and real time sonography of the left carotid system. Velocities are measured in cm/s ; Diameters are measured in cm Carotid Right Measurements + +--------+---- ---+-------+------+------- ----+ + !Location !PSV !EDV !Angle !RI !%Stenosis !Tortuosity ! + +--------+---- ---+-------+------+------- ----+ + !Prox CCA !210.63 !26.75 ! !0.87 ! ! ! + +--------+---- ---+-------+------+------- ----+ + !Mid CCA !114.34 !22.03 ! !0.81 ! ! ! + +--------+---- ---+-------+------+------- ----+ + !Dist CCA !114.34 !22.03 ! !0.81 ! ! ! + +--------+---- ---+-------+------+------- ----+ + !Prox ICA !74.3 !18.24 ! !0.75 ! ! ! + +--------+---- ---+-------+------+------- ----+ + !Mid ICA !89.69 !29.24 ! !0.67 ! ! ! + +--------+---- ---+-------+------+------- ----+ + !Dist ICA !76.5 !24.84 ! !0.68 ! ! ! + +--------+---- ---+-------+------+------- ----+ + !Prox ECA !112.72 !13.93 ! !0.88 ! ! ! + +--------+---- ---+-------+------+------- ----+ + !Vertebral !73.2 !14.95 ! !0.8 ! ! ! + +--------+---- ---+-------+------+------- ----+ + - There is antegrade vertebral flow noted on the right side. - Additional Measurements:ICAPSV/CCAPSV 0.43.ICAEDV/CCAEDV 1.09. Carotid Left Measurements + +--------+---- ---+-------+------+------- ----+ + !Location !PSV !EDV !Angle !RI !%Stenosis !Tortuosity ! + +--------+---- ---+-------+------+------- ----+ + !Prox CCA !156.34 !24.25 ! !0.84 ! ! ! + +--------+---- ---+-------+------+------- ----+ + !Mid CCA !158.32 !28.19 ! !0.82 ! ! ! + +--------+---- ---+-------+------+------- ----+ + !Dist CCA !134.66 !28.19 ! !0.79 ! ! ! + +--------+---- ---+-------+------+------- ----+ + !Prox ICA !99.19 !20.2 ! !0.8 ! ! ! + +--------+---- ---+-------+------+------- ----+ + !Mid ICA !87.54 !27.97 ! !0.68 ! ! ! + +--------+---- ---+-------+------+------- ----+ + !Dist ICA !91.42 !31.86 ! !0.65 ! ! ! + +--------+---- ---+-------+------+------- ----+ + !Prox ECA !96.53 !13.93 ! !0.86 ! ! ! + +--------+---- ---+-------+------+------- ----+ + !Vertebral !61.64 !17.61 ! !0.71 ! ! ! + +--------+---- ---+-------+------+------- ----+ + - There is antegrade vertebral flow noted on the left side. - Additional Measurements:ICAPSV/CCAPSV 0.63.ICAEDV/CCAEDV 1.31. [facility] Phone: Radiology Study observation (narrative) [facility] Phone: VL DUP CAROTID BILATERALOrde red By: Bryan Janesdimitrios on 11-07-2021 [employer] Work Phone: XR CHEST 2 Von 10-31-2021 XR CHEST 2 V EXAMINATION: XR CHES T 2 V HISTORY: Pneumonia COMPARISON: 09/11/2021 TECHNIQUE: PA and lateral FINDINGS: LUNGS: Interval improvement in bilateral patchy parenchymal opacities. Few scattered increased interstitial lung markings, chronic change is suspected VASCULATURE: No increased pulmonary vasculature. PLEURA: No pneumothorax, effusion, or pleural thickening. CARDIAC: No cardiomegaly or cardiac silhouette abnormality. MEDIASTINUM: No visible mass or adenopathy. BONES: No fracture or visible bone lesion. OTHER: Negative. IMPRESSION: No acute disease. Electronically authenticated by: DEBORAH PERALTA Date: 2021-10-31 13:46 Normal [facility] Complete Blood Count with Au to Diffon 10-16-2021 Basophils (Bld) [#/Vol] 0.04 10*3/uL Normal 0.00-0.20 [facility] Comment on above: Performed By: #### C MP, TSH reflex FT4, CBCAD, MG, VITD, LIPD #### [facility] [address], [place] [id number] Basophils/100 WBC (Bld) 0.7 % Normal [facility] [employer] Comment on above: Performed By: #### C MP, TSH reflex FT4, CBCAD, MG, VITD, LIPD #### [facility] [address], [place] [id number] Eosinophils (Bld) [#/Vol] 0.12 10*3/uL Normal 0.02-0.50 [facility] Comment on above: Performed By: #### C MP, TSH reflex FT4, CBCAD, MG, VITD, LIPD #### [facility] [address], [place] [id number] Eosinophils/100 WBC (Bld) 2.2 % Normal [facility] Comment on above: Performed By: #### C MP, TSH reflex FT4, CBCAD, MG, VITD, LIPD #### [facility] [address], [place] [id number] Erythrocyte distribution width (RBC) [Ratio] 14.5 % Normal 11.0-15.0 [facility] Comment on above: Performed By: #### C MP, TSH reflex FT4, CBCAD, MG, VITD, LIPD #### [facility] [address], [place] [id number] Hematocrit (Bld) [Volume fraction] 38.2 % Low 38.5-50.0 [facility] Comment on above: Performed By: #### C MP, TSH reflex FT4, CBCAD, MG, VITD, LIPD #### [facility] [address], [place] [id number] Hemoglobin (Bld) [Mass/Vol] 12.3 g/dL Low 13.0-17.1 [facility] Comment on above: Performed By: #### C MP, TSH reflex FT4, CBCAD, MG, VITD, LIPD #### [facility] [address], [place] [id number] Lymphocytes (Bld) [#/Vol] 1.2 10*3/uL Normal 0.9-3.9 [facility] Comment on above: Performed By: #### C MP, TSH reflex FT4, CBCAD, MG, VITD, LIPD #### [facility] [address], [place] [id number] Lymphocytes/100 WBC (Bld) 22.1 % Normal [facility] Comment on above: Performed By: #### C MP, TSH reflex FT4, CBCAD, MG, VITD, LIPD #### [facility] [address], [place] [id number] MCH (RBC) [Entitic mass] 29.4 pg Normal 27.0-33.0 [facility] Comment on above: Performed By: #### C MP, TSH reflex FT4, CBCAD, MG, VITD, LIPD #### [facility] [address], [place] [id number] MCHC (RBC) [Mass/Vol] 32.2 g/dL Normal 32.0-36.0 [facility] Comment on above: Performed By: #### C MP, TSH reflex FT4, CBCAD, MG, VITD, LIPD #### [facility] [address], [place] [id number] MCV (RBC) [Entitic vol] 91 fL Normal 80-100 [facility] Comment on above: Performed By: #### C MP, TSH reflex FT4, CBCAD, MG, VITD, LIPD #### [facility] [address], [place] [id number] Monocytes (Bld) [#/Vol] 0.9 10*3/uL Normal 0.2-0.9 [facility] Comment on above: Performed By: #### C MP, TSH reflex FT4, CBCAD, MG, VITD, LIPD #### [facility] [address], [place] [id number] Monocytes/100 WBC (Bld) 16.4 % Normal [facility] Comment on above: Performed By: #### C MP, TSH reflex FT4, CBCAD, MG, VITD, LIPD #### [facility] [address], [place] [id number] Neutrophils (Bld) [#/Vol] 3.1 10*3/uL Normal 1.5-7.8 [facility] Comment on above: Performed By: #### C MP, TSH reflex FT4, CBCAD, MG, VITD, LIPD #### [facility] [address], [place] [id number] Neutrophils/100 WBC (Bld) 57.5 % Normal [facility] Comment on above: Performed By: #### C MP, TSH reflex FT4, CBCAD, MG, VITD, LIPD #### [facility] [address], [place] [id number] Platelet mean volume (Bld) [Entitic vol] 10.30 fL Normal 7.50-12.50 [facility] Comment on above: Performed By: #### C MP, TSH reflex FT4, CBCAD, MG, VITD, LIPD #### [facility] [address], [place] [id number] Platelets (Bld) [#/Vol] 266 10*3/uL Normal 140-400 [facility] Comment on above: Performed By: #### C MP, TSH reflex FT4, CBCAD, MG, VITD, LIPD #### [facility] [address], [place] [id number] RBC (Bld) [#/Vol] 4.19 10*6/uL Low 4.20-5.80 [facility] Comment on above: Performed By: #### C MP, TSH reflex FT4, CBCAD, MG, VITD, LIPD #### [facility] [address], [place] [id number] RDW-SD 48.1 fL Normal 37.0-50.0 [facility] Comment on above: Performed By: #### C MP, TSH reflex FT4, CBCAD, MG, VITD, LIPD #### [facility] [address], [place] [id number] WBC (Bld) [#/Vol] 5.4 10*3/uL Normal 3.8-11.0 [facility] Comment on above: Performed By: #### C MP, TSH reflex FT4, CBCAD, MG, VITD, LIPD #### [facility] [address], [place] [id number] Comprehensive Metabolic Pane jefry 10-16-2021 Albumin [Mass/Vol] 4.2 g/dL Normal 3.6-5.1 [facility] Comment on above: Performed By: #### C MP, TSH reflex FT4, CBCAD, MG, VITD, LIPD #### [facility] [address], [place] [id number] Albumin/Globulin [Mass ratio] 1.6 {ratio} Normal 1.0-2.5 [facility] Comment on above: Performed By: #### C MP, TSH reflex FT4, CBCAD, MG, VITD, LIPD #### [facility] [address], [place] [id number] ALP [Catalytic activity/Vol] 103 U/L Normal 40-129 [facility] Comment on above: Performed By: #### C MP, TSH reflex FT4, CBCAD, MG, VITD, LIPD #### [facility] [address], [place] [id number] ALT [Catalytic activity/Vol] 11 U/L Normal 9-46 [facility] Comment on above: Result Comment: 07/25 Female reference range changed. Performed By: #### C MP, TSH reflex FT4, CBCAD, MG, VITD, LIPD #### [facility] [address], [place] [id number] Anion gap [Moles/Vol] 19 mmol/L Normal 12-20 [facility] Comment on above: Result Comment: Effe ctive 08/30/2019 reference range changed. Performed By: #### C MP, TSH reflex FT4, CBCAD, MG, VITD, LIPD #### [facility] [address], [place] [id number] AST [Catalytic activity/Vol] 17 U/L Normal 10-40 [facility] Comment on above: Performed By: #### C MP, TSH reflex FT4, CBCAD, MG, VITD, LIPD #### [facility] [address], [place] [id number] Bilirubin [Mass/Vol] 0.37 mg/dL Normal 0.30-1.20 [facility] Comment on above: Performed By: #### C MP, TSH reflex FT4, CBCAD, MG, VITD, LIPD #### [facility] [address], [place] [id number] BUN/CREA 15 Ratio Normal 6-22 [facility] Comment on above: Performed By: #### C MP, TSH reflex FT4, CBCAD, MG, VITD, LIPD #### [facility] [address], [place] [id number] Calcium [Mass/Vol] 9.5 mg/dL Normal 8.6-10.2 [facility] Comment on above: Performed By: #### C MP, TSH reflex FT4, CBCAD, MG, VITD, LIPD #### [facility] [address], [place] [id number] Chloride [Moles/Vol] 104 mmol/L Normal 98-107 [facility] Comment on above: Performed By: #### C MP, TSH reflex FT4, CBCAD, MG, VITD, LIPD #### [facility] [address], [place] [id number] CO2 [Moles/Vol] 21 mmol/L Normal 20-31 [facility] Comment on above: Performed By: #### C MP, TSH reflex FT4, CBCAD, MG, VITD, LIPD #### [facility] [address], [place] [id number] Creatinine [Mass/Vol] 0.9 mg/dL Normal 0.7-1.4 [facility] Comment on above: Performed By: #### C MP, TSH reflex FT4, CBCAD, MG, VITD, LIPD #### [facility] [address], [place] [id number] eGFRAA 100 mL/min/1.73m2 Normal >60 [facility] Comment on above: Performed By: #### C MP, TSH reflex FT4, CBCAD, MG, VITD, LIPD #### [facility] [address], [place] [id number] eGFRNAA 82 mL/min/1.73m2 Normal >60 [facility] Comment on above: Performed By: #### C MP, TSH reflex FT4, CBCAD, MG, VITD, LIPD #### [facility] [address], [place] [id number] Globulin (S) [Mass/Vol] 2.6 g/dL Normal 1.9-3.7 [facility] Comment on above: Performed By: #### C MP, TSH reflex FT4, CBCAD, MG, VITD, LIPD #### [facility] [address], [place] [id number] Glucose [Mass/Vol] 92 mg/dL Normal 65-99 [facility] Comment on above: Result Comment: For FASTING Glucose --- ADA reference ranges: Normal 65-99 mg/dl Prediabetes 100-125 Diabetes >/= 126 Performed By: #### C MP, TSH reflex FT4, CBCAD, MG, VITD, LIPD #### [facility] [address], [place] [id number] Potassium [Moles/Vol] 4.8 mmol/L Normal 3.5-5.5 [facility] Comment on above: Performed By: #### C MP, TSH reflex FT4, CBCAD, MG, VITD, LIPD #### [facility] [address], [place] [id number] Protein [Mass/Vol] 6.8 g/dL Normal 6.1-8.1 [facility] [place] [facility] [facility] Comment on above: Performed By: #### C MP, TSH reflex FT4, CBCAD, MG, VITD, LIPD #### [facility] [address], [place] [id number] Sodium [Moles/Vol] 139 mmol/L Normal 135-146 [facility] [place] [facility] [employer] Comment on above: Performed By: #### C MP, TSH reflex FT4, CBCAD, MG, VITD, LIPD #### [facility] [address], [place] [id number] Urea nitrogen [Mass/Vol] 14 mg/dL Normal 7-25 [facility] [employer] Comment on above: Performed By: #### C MP, TSH reflex FT4, CBCAD, MG, VITD, LIPD #### [facility] [address], [place] [id number] Lipid Panelon 10-16-2021 Cholesterol [Mass/Vol] 158 mg/dL Normal 125-200 [facility] Comment on above: Result Comment: Low risk < 200mg/dL Borderline risk 201-239 mg/dl High risk > or equal to 240 Performed By: #### C MP, TSH reflex FT4, CBCAD, MG, VITD, LIPD #### [facility] [address], [place] [id number] Cholesterol in HDL [Mass/Vol] 65 mg/dL Normal >40 [facility] [employer] Comment on above: Result Comment: High Cardiovascular Risk HDL <40 mg/dL Low Cardiovascular Risk HDL > or equal to 60 mg/dl Performed By: #### C MP, TSH reflex FT4, CBCAD, MG, VITD, LIPD #### [facility] [address], [place] [id number] Cholesterol in LDL [Mass/Vol] 81 mg/dL Normal [facility] Comment on above: Result Comment: LDL ATP III CLASSIFICATION LDL less than 100 mg/dl Optimal LDL 100-129 mg/dl Near or above optimal LDL 130-159 Borderline high LDL 160-189 High LDL greater than 189 mg/dl Very High Performed By: #### C MP, TSH reflex FT4, CBCAD, MG, VITD, LIPD #### [facility] [address], [place] [id number] Cholesterol in VLDL [Mass/Vol] 12 mg/dL Normal [facility] Comment on above: Performed By: #### C MP, TSH reflex FT4, CBCAD, MG, VITD, LIPD #### [facility] [address], [place] [id number] Cholesterol.total/Cho lesterol in HDL [Mass ratio] 2 {ratio} Normal [facility] Comment on above: Performed By: #### C MP, TSH reflex FT4, CBCAD, MG, VITD, LIPD #### [facility] [address], [place] [id number] Triglyceride [Mass/Vol] 60 mg/dL Normal 30-150 [facility] Comment on above: Result Comment: TRIG ATPIII CLASSIFICATIONS TRIG less than 150 mg/dl Normal TRIG 150-199 mg/dl Borderline High TRIG 200-500 mg/dl High TRIG greather than 500 mg/dl Very High Performed By: #### C MP, TSH reflex FT4, CBCAD, MG, VITD, LIPD #### [facility] [address], [place] [id number] Magnesiumon 10-16-2021 Magnesium [Mass/Vol] 1.9 mg/dL Normal 1.5-2.3 [facility] Comment on above: Performed By: #### C MP, TSH reflex FT4, CBCAD, MG, VITD, LIPD #### [facility] [address], [place] [id number] TSH w/ Reflex to Free T4on 0 10-16-2021 TSH 1.370 uIU/mL Normal 0.400-4.[address] [facility] Comment on above: Performed By: #### C MP, TSH reflex FT4, CBCAD, MG, VITD, LIPD #### [facility] [address], [place] [id number] Vitamin D 25-OHon 10-16-2021 VIT D 25 OH 28 ng/ml Low >29 [facility] [employer] Comment on above: Result Comment: Karissa min D Status Deficiency <20 ng/mL Insufficiency 20-29 ng/mL Optimal 30-100 ng/mL Possible Toxicity >=150 ng/mL Performed By: #### C MP, TSH reflex FT4, CBCAD, MG, VITD, LIPD #### [facility] [address], [place] [id number] XR CHEST 2 Von 09-11-2021 XR CHEST 2 V EXAMINATION: XR CHES T 2 V HISTORY: Dyspnea COMPARISON: No relevant comparison available. TECHNIQUE: PA and lateral FINDINGS: LUNGS: Mild scattered patchy parenchymal infiltrates most significant in the lateral right lung. VASCULATURE: No increased pulmonary vasculature. PLEURA: No pneumothorax, effusion, or pleural thickening. CARDIAC: No cardiomegaly or cardiac silhouette abnormality. MEDIASTINUM: No visible mass or adenopathy. BONES: No fracture or visible bone lesion. OTHER: Negative. IMPRESSION: Mild multifocal infiltrates, consider pneumonia Electronically authenticated by: DEBORAH PERALTA Date: 2021-09-11 11:13 Normal [facility] PROF CHEM 8 (BAS METB)on Anion gap [Moles/Vol] 19.0 mmol/L Normal [facility] Comment on above: Performed By: #### B MP #### [facility] [address] [address] [address] Vadim Koehler Calcium [Mass/Vol] 9.0 mg/dL Normal 8.4-10.2 [facility] Comment on above: Performed By: #### B MP #### [facility] [address] [address] [address] Vadim Koehler Chloride [Moles/Vol] 97 mmol/L Critically low 98-107 [facility] Comment on above: Performed By: #### B MP #### [facility] [address] [address] [address] Vadim Koehler CO2 [Moles/Vol] 20.0 mmol/L Critically low 22.0-30.0 [facility] Comment on above: Performed By: #### B MP #### [facility] [address] [address] [address] Vadim Koehler Creatinine [Mass/Vol] 3.03 mg/dL Critically high 0.66-1.25 [facility] Comment on above: Performed By: #### B MP #### [facility] [address] [address] [address] Vadim Koehler EGFR-AF GUAMANIAN 25 mL/min/1.73m2 Critically low >=60 [facility] Comment on above: Performed By: #### B MP #### [facility] [address] [address] [address] Vadim Koehler EGFR-NON AF GUAMANIAN 21 mL/min/1.73m2 Critically low >=60 [facility] Comment on above: Performed By: #### B MP #### [facility] [address] [address] [address] Vadim Koehler Glucose [Mass/Vol] 120 mg/dL Critically high 74-106 [facility] Comment on above: Performed By: #### B MP #### [facility] [address] [address] [address] Vadim Koehler Potassium [Moles/Vol] 4.0 mmol/L Normal 3.4-5.0 [facility] Comment on above: Performed By: #### B MP #### [facility] [address] [address] [address] Vadim Koehler Sodium [Moles/Vol] 132 mmol/L Critically low 137-145 [facility] Comment on above: Performed By: #### B MP #### [facility] [address] [address] [address] Vadim Koehler Urea nitrogen [Mass/Vol] 47.0 mg/dL Critically high 9.0-20.0 [facility] Comment on above: Performed By: #### B MP #### [facility] [address] [address] [address] Vadim Koehler Urea nitrogen/Creatinine [Mass ratio] 15.5 mg/mg Normal [facility] Comment on above: Performed By: #### B MP #### [facility] [address] [place] [address] Dr. Vadim Koehler Vital Signs Date Time Vital Sign Value Performing Clinician Facility 08-07-2023 13:50-0500 Body weight 63.5 kg Cleveland Alberts MD Work Phone: [facility] 08-07-2023 13:50-0500 Diastolic blood pressure 63 mm[Hg] Cleveland Alberts MD Work Phone: [facility] 08-07-2023 13:50-0500 Heart rate 139 /min Cleveland Alberts MD Work Phone: [facility] 08-07-2023 13:50-0500 Systolic blood pressure 94 mm[Hg] Cleveland Alberts MD Work Phone: [facility] 07-26-2023 15:20-0500 Body temperature 97.7 [degF] MD Rene Cannon Work Phone: [facility] 07-26-2023 15:20-0500 Diastolic blood pressure 69 mm[Hg] MD Rene Cannon Work Phone: [facility] 07-26-2023 15:20-0500 Heart rate 58 /min MD Rene Cannon Work Phone: [facility] 07-26-2023 15:20-0500 Respiratory rate 18 /min MD Rene Cannon Work Phone: [facility] 07-26-2023 15:20-0500 SaO2% (BldA) [Mass fraction] 97 % MD Rene Cannon Work Phone: [facility] 07-26-2023 15:20-0500 Systolic blood pressure 128 mm[Hg] MD Rene Cannon Work Phone: [facility] 07-26-2023 03:59-0500 Body weight 74.9 kg MD Rene Cannon Work Phone: [facility] 07-25-2023 14:39-0500 Body height 175.26 cm MD Rene Cannon Work Phone: [facility] 07-24-2023 18:07-0500 Diastolic blood pressure 56 mm[Hg] MD eRne Cannon Work Phone: [facility] 07-24-2023 18:07-0500 Heart rate 58 /min MD Rene Cannon Work Phone: [facility] 07-24-2023 18:07-0500 Respiratory rate 18 /min MD Rene Cannon Work Phone: [facility] 07-24-2023 18:07-0500 SaO2% (BldA) [Mass fraction] 100 % MD Rene Cannon Work Phone: [facility] 07-24-2023 18:07-0500 Systolic blood pressure 100 mm[Hg] MD Rene Cannon Work Phone: [facility] 07-24-2023 12:15-0500 Body height 175.26 cm MD Rene Cannon Work Phone: [facility] 07-24-2023 12:15-0500 Body temperature 97.6 [degF] MD Rene Cannon Work Phone: [facility] 07-24-2023 12:15-0500 Body weight 72.5 kg MD Rene Cannon Work Phone: [facility] 02-22-2023 11:30-0400 Body height 176.53 cm Chantal Castellanos Other [facility] Other 02-22-2023 11:30-0400 Body mass index (BMI) [Ratio] 25.79 kg/m2 Chantal Castellanos Other [facility] Other 02-22-2023 11:30-0400 Body temperature 98.9 [degF] Chantal Castellanos Other [facility] Other 02-22-2023 11:30-0400 Body weight 80.38 kg Chantal Castellanos Other [facility] Other 02-22-2023 11:30-0400 Respiratory rate 18 /min Chantal Castellanos Other [facility] Other 02-22-2023 11:30-0400 SaO2% (BldA) [Mass fraction] 96 % Chantal Castellanos Other [facility] Other 02-06-2023 11:36-0400 Body height 176.53 cm Rene Cannon Work Phone: [facility] [address] DO Work Phone: 02-06-2023 11:36-0400 Body mass index (BMI) [Ratio] 25.62 kg/m2 Rene Cannon Work Phone: [facility] [address] DO Work Phone: 02-06-2023 11:36-0400 Body surface area Derived from formula 1.97 m2 Rene Cannon Work Phone: [facility] [address] DO Work Phone: 02-06-2023 11:36-0400 Body weight 79.83 kg Rnee Cannon Work Phone: [facility] [address] DO Work Phone: 02-06-2023 11:36-0400 Diastolic blood pressure 78 mm[Hg] Rene Cannon Work Phone: [facility] [address] DO Work Phone: 02-06-2023 11:36-0400 Heart rate 66 /min Rene Cannon Work Phone: [facility] [address] DO Work Phone: 02-06-2023 11:36-0400 Systolic blood pressure 136 mm[Hg] Rene Cannon Work Phone: [facility] [address] DO Work Phone: 01-17-2023 13:05-0400 Diastolic blood pressure 72 mm[Hg] MD Rene Cannon Work Phone: [facility] 01-17-2023 13:05-0400 Heart rate 60 /min MD Rene Cannon Work Phone: [facility] 01-17-2023 13:05-0400 Respiratory rate 16 /min MD Rene Cannon Work Phone: [facility] 01-17-2023 13:05-0400 SaO2% (BldA) [Mass fraction] 97 % MD Rene Cannon Work Phone: [facility] 01-17-2023 13:05-0400 Systolic blood pressure 123 mm[Hg] MD Rene Cannon Work Phone: [facility] 01-17-2023 07:26-0400 Body height 177.8 cm MD Rene Cannon Work Phone: [facility] 01-17-2023 07:26-0400 Body temperature 98.1 [degF] MD Rene Cannon Work Phone: [facility] 01-17-2023 07:26-0400 Body weight 82 kg MD Rene Cannon Work Phone: [facility] 01-09-2023 09:10-0400 Diastolic blood pressure 92 mm[Hg] Rene Cannon Work Phone: [facility] [address] DO Work Phone: 01-09-2023 09:10-0400 Systolic blood pressure 160 mm[Hg] Rene Cannon Work Phone: [facility] [address] DO Work Phone: 01-09-2023 09:09-0400 Body height 176.53 cm Rene Cannon Work Phone: [facility] [address] DO Work Phone: 01-09-2023 09:09-0400 Body mass index (BMI) [Ratio] 26.49 kg/m2 Rene Cannon Work Phone: [facility] [address] DO Work Phone: 01-09-2023 09:09-0400 Body surface area Derived from formula 1.99 m2 Rene Cannon Work Phone: [facility] [address] DO Work Phone: 01-09-2023 09:09-0400 Body weight 82.56 kg Rene Cannon Work Phone: [facility] [address] DO Work Phone: 01-09-2023 09:09-0400 Diastolic blood pressure 90 mm[Hg] Rene Cannon Work Phone: [facility] [address] DO Work Phone: 01-09-2023 09:09-0400 Heart rate 70 /min Destineemickey Cannon Work Phone: [facility] [address] DO Work Phone: 01-09-2023 09:09-0400 Systolic blood pressure 152 mm[Hg] Rene Misa Cannon Work Phone: [facility] DO Work Phone: 11-21-2021 14:30-0400 Body height 176.53 cm Deborah Magallanes Other [employer] Other 11-21-2021 14:30-0400 Body mass index (BMI) [Ratio] 27.36 kg/m2 Deborah Magallanes Other [facility] Other 11-21-2021 14:30-0400 Body weight 85.28 kg Deborah Magallanes Other [facility] Other 11-21-2021 14:30-0400 Diastolic blood pressure 79 mm[Hg] Deborah Magallanes Other [facility] Other 11-21-2021 14:30-0400 Systolic blood pressure 136 mm[Hg] Deborah Magallanes Other [facility] Other Encounters Encounter Date Encounter Type Care Provider Facility Start: 08-28-2023 End: 09-05-2023 Evaluation and management of inpatient CLEVELAND ALBERTS Facility:[facility] Start: 08-28-2023 End: 08-28-2023 ambulatory CLEVELAND HAHNCOX SOUTHSILVANO Facility:[facility] Start: 08-15-2023 End: 08-15-2023 ambulatory Imad Asaad Other [facility] Other Start: 08-15-2023 Telephone encounter Imad Asaad [facility] [employer] Start: 08-13-2023 Telephone encounter Cleveland chang MD Work Phone: General Surgery Comment on above: FMLA Paperwork Start: 08-08-2023 Preprocedural examination done Cleveland Alberts MD Work Phone: [facility] Work Phone: Start: 08-07-2023 End: 08-17-2023 Evaluation and management of inpatient BOLIVAR Misa DEAL Facility:[facility] Start: 08-07-2023 End: 08-07-2023 ambulatory [facility]R [facility] Facility[facility] Start: 08-07-2023 End: 08-07-2023 Patient encounter procedure Samer Violetta Alberts MD Work Phone: General Surgery Comment on above: Gastric outlet obstr uction (Primary Dx) Start: 08-05-2023 Orders Only Jessie Zamora RN Gener al Surgery Comment on above: Appointment Start: 07-30-2023 End: 07-30-2023 ambulatory RENE CANNON Not Available Start: 07-29-2023 Telephone encounter Samer Violetta chang MD Work Phone: General Surgery Comment on above: Appointment Start: 07-24-2023 End: 07-26-2023 Evaluation and management of inpatient Rene Cannon Facility:[facility] Start: 07-24-2023 End: 07-26-2023 Evaluation and management of inpatient MD Rene Cannon Work Phone: [facility] Work Phone: Start: 07-24-2023 End: 07-24-2023 ambulatory RENE CANNON Not Available Start: 07-10-2023 End: 07-10-2023 ambulatory RENE CANNON Not Available Start: 02-22-2023 End: 02-22-2023 ambulatory Chantal Castellanos Other [facility] [employer] Other Start: 02-22-2023 Office outpatient vi sit 15 minutes Chantal Castellanos [facility] August Start: 02-06-2023 Office outpatient vi sit 15 minutes Rene Cannon Work Phone: [facility] Heart-Floyd 250 DO Work Phone: Start: 01-17-2023 ambulatory Arnel Madsen Facilit [id number] Start: 01-17-2023 End: 01-17-2023 ambulatory Joselito Madsen Facility:[facility] Start: 01-17-2023 End: 01-17-2023 Admission to same day surgery center MD Rene Cannon Work Phone: [facility] 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: Start: 01-17-2023 End: 01-17-2023 ambulatory MD Rene Cannon Work Phone: [facility] Work Phone: Start: 01-15-2023 End: 01-15-2023 ambulatory Joselito Madsen Facility:[facility] Start: 01-15-2023 End: 01-15-2023 Patient encounter procedure MD Rene Cannon Work Phone: [facility] [employer] Work Phone: Start: 01-09-2023 ambulatory Arnel Cale Facilit [id number] Start: 12-19-2022 ambulatory Arnel Madsen Facilit y:[facility] Start: 07-04-2022 ambulatory INOCENCIO ERICKSON [facility] Start: 01-11-2022 End: 01-11-2022 ambulatory Deborah Magallanes Other [facility] Other Start: 01-11-2022 Telephone encounter Deborah Magallanes [facility] Start: 12-19-2021 End: 12-19-2021 ambulatory Deborah Magallanes Other [facility] Other Start: 12-19-2021 Telephone encounter Deborah Magallanes [facility] Start: 11-21-2021 End: 11-21-2021 ambulatory Deborah Magallanes Other [facility] Other Start: 11-21-2021 Office outpatient ne w 30 minutes Deborah Magallanes [facility] Start: 11-07-2021 End: 11-10-2021 ambulatory DOUGLAS GUTIERREZ [facility] Start: 11-07-2021 End: 11-09-2021 Subsequent hospital visit by physician [facility] Ekg [facility] EKG Comment on above: Chest pain, unspecif ied type; Syncope, unspecified syncope type Arrived [facility] Start: 10-31-2021 End: 11-01-2021 ambulatory DOUGLAS GUTIERREZ Facility:[facility] Start: 09-12-2021 End: 09-13-[address] RENE CANNON Facility:[facility] Start: 09-11-2021 End: 09-12-[address] RENE CANNON Facility:[facility] Start: 09-07-2021 End: 09-07-[address] RENE CANNON Facility:[facility] Procedures Date Procedure Procedure Detail Performing Clinician Start: 08-17-2023 Echocardiography BOLIVAR DEAL Start: 08-07-2023 Antibody screen BOLIVAR DEAL Comment on above: Order Comment: Specimen Type: BLOOD SPEC IMENOrdering Facility: [facility] Address: [address] [place], [place] [address] [address] Performed By: #### T SCR ####[facility] [id number] [address] Start: 07-25-2023 Esophagogastroduodenoscopy MD Rene rollins Work Phone: Start: 07-24-2023 CT of abdomen and pelvis without contrast MD Rene Cannon Work Phone: Start: 01-17-2023 CL [facility] COR Angio MD Rene Cannon Work Phone: Start: 11-07-2021 STRESS TEST REPORT Karina Fajardo MD Work Phone: Start: 11-07-2021 Myocardial spect multiple studies Douglas Gutierrez MD Work Phone: Start: 11-07-2021 Duplex scan extracranial art compl bi study Douglas Gutierrez MD Work Phone: Start: 08-25-2021 Total colonoscopy Rene Cannon Work Phone: Start: 03-17-2017 Colonoscopy [facility] Ekg Arthroscopy of knee Rene Cannon Work Phone: Cardiac catheterization Olga Cannon Work Phone: Tonsillectomy Rene Panchal er Work Phone: Plan of Treatment Date Care Activity Detail Author Start: 02-16-2033 Urine microalbumin profile DTa P,Tdap,Td Vaccine (2 - Td or Tdap) [facility] Start: 03-17-2027 Screening for malign ant neoplasm of colon [facility] Start: 10-16-2026 Lipid panel Lipid screen [facility] Start: 08-14-2026 Diabetes Screening Diabetes Screenin g [facility] Start: 08-07-2026 Diabetes Screening Diabetes Screenin g [facility] Start: 08-07-2024 BP Controlled (<130/80) BP Con trolled (<130/80) [facility] Start: 07-26-2023 [facility] Start: 07-25-2023 Comprehensive metabo lic 2000 panel - Serum or Plasma [facility] Start: 07-25-2023 [facility] Start: 07-24-2023 Blood chemistry [facility] Start: 07-24-2023 Referral to Food Safety Officer [facility] Start: 07-24-2023 End: 07-24-2023 [facility] Start: 07-24-2023 Referral to speech a nd language therapy service [facility] Start: 07-24-2023 Referral to retail loan originator [facility] Start: 07-24-2023 Hospital admission [facility] Start: 07-24-2023 Referral to welt rander [facility] Start: 04-25-2023 Influenza vaccination Influenz a Vaccine (#1) [facility] Start: 01-17-2023 End: 01-17-2023 [facility] Start: 10-16-2022 Creatinine measurement Creatinine mo [facility] Start: 10-16-2022 Potassium [facility] Start: 08-25-2022 Advance Directive Discussion A dvance Directive Discussion [facility] Start: 08-25-2022 Depression Assessment Depression Ass essment [facility] Start: 12-04-2021 End: 12-04-2021 Patient encounter procedure 12/04/2021 Office Visit Cardiology Douglas Gutierrez MD [address] [place] [address] [facility] [employer] Director Start: 04-25-2021 Influenza vaccination Flu vaccine (# 1) [facility] Start: 2020 Pneumococcal 65+ yea rs Vaccine (1 of 1 - PPSV23) Pneumococcal 65+ years Vaccine (1 of 1 - PPSV23) [facility] Start: 2020 Pneumococcal Vaccine : 65+ (1 - PCV) Pneumococcal Vaccine: 65+ (1 - PCV) [facility] Start: 2020 Pneumococcal Vaccine : 65+ (1 of 1 - PCV) Pneumococcal Vaccine: 65+ (1 of 1 - PCV) [facility] Start: 2015 RSV Vaccine (1 - 1-d ose 60+ series) RSV Vaccine (1 - 1-dose 60+ series) [facility] Start: 2010 Prostate specific an tigen measurement Prostate Cancer Screening Discussion [facility] Start: 2005 Shingles Vaccine (1 of 2) Arriaga gles Vaccine (1 of 2) [facility] Start: 2005 Shingrix Vaccine (1 of 2) Arriaga grix Vaccine (1 of 2) [facility] Start: 2000 Diabetes Screening Diabetes Screenin g [facility] Start: 2000 Screening for malign ant neoplasm of colon [facility] Start: 1990 Lipid panel Lipid Screening [facility] Start: 1974 DTaP/Tdap/Td vaccine (1 - Tdap) DTaP/Tdap/Td vaccine (1 - Tdap) [facility] Start: 1974 Urine microalbumin profile DTa P,Tdap,Td Vaccine (1 - Tdap) [facility] Start: 1973 Annual PCP Team Polysomnography Technician kit Disease Visit Annual PCP Team Chronic Disease Visit [facility] Start: 1973 Hepatitis C screening [facility] Start: 1967 Depression Screen Depression Screen [facility] Start: 1960 COVID-19 Vaccine (1) COVID-19 Vaccin e (1) [facility] Start: 01-15-1956 Covid-19 Vaccine (#1) Covid-19 Vacci ne (#1) [facility] Start: 1955 Hepatitis C screening Hepatitis C vitor [facility] Anion gap measurement [facility] Blood chemistry [facility] End: 11-07-2021 Cardiac event monitor Cardiac event monitor Cardiac Services Routine Chest pain, unspecified type Syncope, unspecified syncope type 1 Occurrences starting 11/07/2021 until 11/07/2021 [facility] Work Phone: Comment on above: 1 Occurrences starti ng 11/07/2021 until 11/07/2021 Dup-scan xtr veins c omplete bilateral study VASCULAR REPORT Imaging Ordered: 11/08/2021 [facility] Comment on above: Ordered: 11/08/2021 Patient referral [facility] Work Phone: End: 11-07-2021 Stress test, myoview Stress test, myoview Cardiac Services Routine Chest pain, unspecified type Syncope, unspecified syncope type 1 Occurrences starting 11/07/2021 until 11/07/2021 [facility] Work Phone: Comment on above: 1 Occurrences starti ng 11/07/2021 until 11/07/2021 [facility] Payers Date Payer Category Payer Self-pay [id number] 2020 Medicare [id number] [facility] [id number] 2017 Unknown 1959 Unknown [id number] 1955 Unknown [id number] 2.16.84 [id number] 1955 Unknown [id number] 2.16.84 0.1.962048.3.579.2.593 1955 Unknown [id number] 2.16.84 0.1.938509.3.579.2.593 1955 Unknown [id number] 2.16.84 0.1.881638.3.579.2.593 1955 Unknown [id number] 2.16.8 40.1.767333.3.579.2.174 1955 Unknown [id number] 2.16.8 40.1.687278.3.579.2.174 1955 Unknown [id number] 2.16.8 40.1.486634.3.579.2.174 1955 Unknown [id number] 2.16.8 40.1.813030.3.579.2.174 1955 Unknown [id number] 2.16.8 40.1.309075.3.579.2.174 1955 Unknown [id number] 2.16.8 40.1.028032.3.579.2.174 1955 Unknown [id number] 2.16. 840.1.669308.3.579.2.356 1955 Unknown [id number] 2.16. 840.1.824017.3.579.2.356 1955 Unknown [id number] 2.16. 840.1.105676.3.579.2.356 1955 Unknown [id number] 2.16.840 .1.694194.3.579.2.1259 1955 Unknown [id number] 2.16.840 .1.056180.3.579.2.1259 1955 Unknown [id number] 2.16.840 .1.983855.3.579.2.1259 Unknown [id number] 2.16.8 40.1.039766.3.579.2.531 Unknown [id number] 2.16.8 40.1.771021.3.579.2.531 Unknown [id number] 2.16.8 40.1.547623.3.579.2.531 Social History Date Type Detail Facility Start: 10-23-2021 End: 08-07-2023 Tobacco smoking status [facility] Never smoked tobacco [facility] Start: 10-23-2021 End: 08-07-2023 Tobacco use and exposure Smokeless tobacco non-user [facility] Phone: Start: 10-24-2021 Alcohol intake Current drinke r of alcohol (finding) [facility] Phone: Start: 10-24-2021 End: 08-07-2023 Alcohol intake [facility] Work Phone: Comment on above[facility]; Start: 1955 Sex Assigned At Not on file [facility] Phone: Start: 08-07-2023 Sex Assigned At [facility] Other Start: 1955 Sex Assigned At Male [facility] Tobacco smoking status NHIS Tobacco smoking consumption unknown [facility] Start: 08-07-2023 Alcohol intake Ex-drinker (finding) [facility] National Score (1-100), lower number is lower risk 63 [facility] Medical Equipment Procedure Code Equipment Code Equipment Origin al Text Equipment Identifier Dates [id number] Percutane Endoscopic Gastrostomy Set [id number] Start: 08-13-2023 Goals Date Patient Goal Desired Activity /State Functional Status Date Assessment Result Facility 07-26-2023 Functional status Patient at Baseline [facility] Work Phone: 07-24-2023 Functional status Patient at Baseline [facility] Work Phone: Mental Status Date Assessment Result Facility 07-26-2023 Cognitive function Cognitive Sta tus Patient at Baseline [facility] Work Phone: 07-24-2023 Cognitive function Cognitive Sta tus Patient at Baseline [facility] Work Phone: Clinical Notes 11-07-2021 to 09-05-2023 Telephone Encounter - Jessie Zamora RN - 08/14/2023 9:12 AM ESTTelephone Encounter - Jessie Zamora RN - 08/13/2023 10:24 AM Cleveland Chinchilla MD - 08/07/2023 2:25 PM EST Note Date & Type Note Facility 09-05-2023 Note [facility] 09-04-2023 Note [facility] 09-03-2023 Note [facility] 09-02-2023 Note HNO ID: [id number] Author: MARYAM MEJIA RN Service: Care Management Author Type: Registered Nurse Type: Care Mgt Progress Note Filed: 09/02/2023 13:34 Note Text: cont. with TPN, optimize pt for OR planned Friday [facility] 09-02-2023 Note [facility] 09-01-2023 Note [facility] 08-31-2023 Note [facility] 08-30-2023 Note [facility] 08-29-2023 Note HNO ID: [id number] Author: LAYNE CARR RN Service: ? Author Type: Registered Nurse Type: Nursing Progress Note Filed: 08/29/2023 16:30 Note Text: 1630 paged SROC, is it ok to use picc if so we need an order. [facility] 08-29-2023 Note [facility] 08-29-2023 Note [facility] 08-28-2023 Note HNO ID: [id number] Author: CLEVELAND ALBERTS MD Service: ? 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 The patient also presented initially with a gastric outlet obstruction and was admitted for nutritional support and workup. He underwent an EUS biopsy of the mesenteric node that showed low-grade neuroendocrine tumor and had PEG-J extension placed for gastric venting and enteric feeds. He was discharged home a few days ago on tube feeds that were tolerated in the hospital. However, he presents today to clinic with severe abdominal discomfort and signs of dehydration including very low blood pressure and tachycardia. He states that the tube feeds were only partially tolerated at goal and that he has to shut it off a few times during the day to allow for comfort. He is having normal bowel habits but has not had any in the last 3 days. Continues to report nausea and vomiting despite the G-tube. FUNCTIONAL STATUS: Take care of self, that is eating, dressing, bathing, using the toilet (2.75 METs) PAST MEDICAL HISTORY Diagnosis Date Essential hypertension GERD (gastroesophageal reflux disease) PAST SURGICAL HISTORY Procedure Laterality Date ARTHROSCOPY KNEE DIAGNOSTIC W/WO SYNOVIAL BX SPX Bilateral COLONOSCOPY DIAGNOSTIC 2021 no polyps EGD DIAGNOSTIC 08/14/2023 FAMILY HISTORY Problem Relation Age of Onset Colon Cancer No Family History Social History Tobacco Use Smoking status: Never Smokeless tobacco: Never Vaping Use Vaping Use: Former Substance Use Topics Alcohol use: Not Currently Drug use: Not Currently MEDICATIONS Current Outpatient Medications Medication Sig Dispense Refill PEPTAMEN 1.5 0.068 gram- 1.5 kcal/mL Tube Feeding Formula Type: Peptamen 1.5 Goal Rate (mL/hr x hours): 60 ml hr x 24 = 1440 ml = 2160 kcal and 98 gm protein Water Flush Volume (mL x frequency: 150 ml q 4 Recommended Enteral Access: PEG with Jejunal Extension 1440 mL 30 potassium (POTASSIMIN ORAL) Take by mouth. dilTIAZem CD (CARDIZEM CD, CARTIA XT) 180 mg 24 hr capsule Take 240 mg by mouth every morning. metoprolol succinate ER (TOPROL XL) 100 mg Take 50 mg by mouth one time only. tamsulosin (FLOMAX) 0.4 mg Take 0.4 mg by mouth one time only. losartan (COZAAR) 100 mg tablet Take 100 mg by mouth every morning. finasteride (PROSCAR) 5 mg tablet Take 5 mg by mouth every other day. pantoprazole DR (PROTONIX) 40 mg tablet Take 1 tablet by mouth every afternoon. ondansetron (ZOFRAN) 4 mg tablet TAKE 1 TABLET BY MOUTH EVERY 8 HOURS NEEDED FOR NAUSEA OR FOR VOMITING FOR UP TO 7 DAYS No current facility-administered medications for this visit. CURRENT ALLERGIES ALLERGIES No Known Allergies REVIEW OF SYSTEMS PAIN ASSESSMENT: Pain Pain Level: 10 Pain Location: Abdomen Description: Sharp Duration Amount of Time: 5 Duration Units: Days General: Malaise Neuro: No Hx of stroke or seizures Respiratory: No history of current cough or dyspnea, or pneumonia in the past 6 weeks. No history of respiratory/pulmonary symptoms or problems Cardiovascular: Hypertension on medication GI: See HPI : No history of UTI in past 6 weeks. No history of renal failure. Not currently on or requiring dialysis. No history of symptoms or problems. Endocrine: No history of diabetes. Has not taken steroids within the past 30 days. No history of endocrinological symptoms or problems. Hematology: No history of bleeding or clotting disorder. Pt is not taking anti-coagulation or platelet medications. No history of hematological symptoms or problems. Oncology: No history of CA metastasis, chemo within 30 days, or radiotherapy within 90 days. Has not lost 10% of body wt in 6 months. No history of oncological symptoms or problems. Psych: No history of psychiatric symptoms or problems. Musculoskeletal: Negative for joint pain or swelling, back pain or muscle pain. Skin: Negative for lesions, rash and itching. Anemia: No PHYSICAL EXAMINATION BP 93/53 Pulse 100 Ht 5' 9.5 (1.77m) Wt 135 lb (61.2kg) BMI 19.66 kg/(m2). General Appearance: Fatigued, in pain, laying on the bed and appears uncomfortable Skin: Skin color, texture, turgor normal, no suspicious rashes or lesions Head: Normocephalic, no masses, lesions, tenderness or abnormalities Oropharynx: Lips, mucosa, and tongue normal, teeth and gums normal, oropharynx normal Neck: Not examined Lungs: Unlabored on room air Heart: Not examined Extremities: No deformities, edema, skin discoloration, clubbing or cyanosis. Good capillary refill. Neuro: Gait deangelo (more content not included)... [facility] 08-26-2023 Note HNO ID: [id number] Author: Andreas Ford, DO Service: ? Author Type: Fellow Type: Progress Notes Filed: 08/26/2023 12:36 PM Note Text: [facility] Multidisciplinary Havfqq-Kpnpgucez-Fhujajr AND Upper GI Case Conference -- Consensus Note -- Conference Date: 08/26/2023 Case reviewed with physicians from GI, Surgery, AND Radiology services: -- Surgeons - Rosa Carreon Augustin, Naffouje, Visioni, and Janice -- Gastroenterologists - Skyler Avery -- Radiologist - Sheri Issue(s) Question(s): 68 year old male who was seen in clinic due to gastric outlet obstruction. He was admitted to the hospital and underwent a PEG-J placement. He was discharged home on tube feeds to optimize his nutrition. 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 Want to review imaging to determine next steps in management. Pre-conference plan: - Surgical intervention Imaging Review: - CT with a mesenteric mass that is partially calcified that goes up to involve the pancreatic head. There are hyperenhancing nodules along the duodenum/pancreatic head. There is another mesenteric mass in the RLQ. There is a probable associated ileal lesion. 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 Author Type: Registered Nurse Type: Nursing Progress Note Filed: 08/17/2023 3:34 AM Note Text: 0030 New TF bag hung, TF advanced to 50 ml/hr no c/o gastric upset or nausea. [facility] 08-16-2023 Note [facility] 08-16-2023 Note [facility] 08-15-2023 Note [facility] 08-15-2023 Note [facility] 08-14-2023 Note [facility] 08-14-2023 Note [facility] 08-14-2023 Miscellaneous Notes Kindra from [employer] returned call yesterday stating that she had emailed short term disability papers to the patient - they spoke on Friday. Informed me that they need a letter stating an estimated return to work date, when was the first day he was unable to work, and the reasoning. Letter to be faxed and will ask patient for the emailed paperwork. Call made to [employer] - patient employer to get FMLA paperwork for him. Left a VM with Kindra. Gave her cell number to call back and/or fax number to fax paperwork. documented in this encounter [facility] 08-13-2023 Note [facility] 08-13-2023 Note [facility] 08-12-2023 Note [facility] 08-11-2023 Note [facility] 08-10-2023 Note [facility] 08-09-2023 Note [facility] 08-08-2023 Note [facility] 08-07-2023 History and physical note New Patient Consult REASON FOR VISIT Consultation requested by Nohemy Linder for an opinion regarding Aisha Julien. My final recommendations will be communicated back to the requesting physician by way of shared Medical record or letter to requesting physician via [place] mail. History of Present Illness: Aisha Julien is a 68 year old male who presented to an outside hospital 2 weeks ago with symptoms of gastric outlet obstruction. He received an upper endoscopy by Dr. 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 This was biopsied but pathology returned negative for malignancy. During that admission he had a CT abdomen/pelvis without contrast due to dehydration and elevated creatinine. This demonstrated a lesion in the uncinate process of the pancreas versus the third portion of the duodenum with obstruction at the site. Given the absence of contrast it is difficult to study the origin of the mass and its relationship to the SMA/SMV. The patient continued to have progressive obstructive symptoms. He can only tolerate small amounts of clear liquids. Otherwise he continues to have hiccups, burping, and frequent vomiting. The emesis alternates between bilious and yellow in color. He has been continuously losing weight since early June when the symptoms started. He describes episodes of low blood pressure associated with dizziness and near syncope concerning for hypoglycemia. He has not had any abdominal surgery before. Family history of ovarian cancer in mother, lived to her 90s. FUNCTIONAL STATUS: Climb a flight of stairs or walk up a hill (5.50 METs) PAST MEDICAL HISTORY Diagnosis Date Essential hypertension GERD (gastroesophageal reflux disease) PAST SURGICAL HISTORY Procedure Laterality Date ARTHROSCOPY KNEE DIAGNOSTIC W/WO SYNOVIAL BX SPX Bilateral FAMILY HISTORY Problem Relation Age of Onset Colon Cancer No Family History Social History Tobacco Use Smoking status: Never Smokeless tobacco: Never Vaping Use Vaping Use: Former Substance Use Topics Alcohol use: Not Currently Drug use: Not Currently MEDICATIONS Current Outpatient Medications Medication Sig Dispense Refill potassium (POTASSIMIN ORAL) Take by mouth. dilTIAZem CD (CARDIZEM CD, CARTIA XT) 180 mg 24 hr capsule Take 240 mg by mouth every morning. metoprolol succinate ER (TOPROL XL) 100 mg Take 50 mg by mouth one time only. tamsulosin (FLOMAX) 0.4 mg Take 0.4 mg by mouth one time only. finasteride (PROSCAR) 5 mg tablet Take 5 mg by mouth every other day. pantoprazole DR (PROTONIX) 40 mg tablet Take 1 tablet by mouth every afternoon. ondansetron (ZOFRAN) 4 mg tablet TAKE 1 TABLET BY MOUTH EVERY 8 HOURS NEEDED FOR NAUSEA OR FOR VOMITING FOR UP TO 7 DAYS losartan (COZAAR) 100 mg tablet Take 100 mg by mouth every morning. (Patient not taking: Reported on 08/07/2023) No current facility-administered medications for this visit. CURRENT ALLERGIES ALLERGIES No Known Allergies REVIEW OF SYSTEMS PAIN ASSESSMENT: General: No weight loss, malaise or fevers. Neuro: No Hx of stroke or seizures Respiratory: No history of current cough or dyspnea, or pneumonia in the past 6 weeks. No history of respiratory/pulmonary symptoms or problems Cardiovascular: Hypertension on medication GI: See HPI : No history of UTI in past 6 weeks. No history of renal failure. Not currently on or requiring dialysis. No history of symptoms or problems. Endocrine: No history of diabetes. Has not taken steroids within the past 30 days. No history of endocrinological symptoms or problems. Hematology: No history of bleeding or clotting disorder. Pt is not taking anti-coagulation or platelet medications. No history of hematological symptoms or problems. Oncology: No history of CA metastasis, chemo within 30 days, or radiotherapy within 90 days. Has not lost 10% of body wt in 6 months. No history of oncological symptoms or problems. Psych: No history of psychiatric symptoms or problems. Musculoskeletal: Negative for joint pain or swelling, back pain or muscle pain. Skin: Negative for lesions, rash and itching. Anemia: No PHYSICAL EXAMINATION BP 94/63 Pulse 139 Wt 140 lb (63.5kg) General Appearance: Well appearing, alert, in no acute distress, well-hydrated, well nourished. Skin: Skin color, texture, turgor normal, no suspicious rashes or lesions Head: Normocephalic, no masses, lesions, tenderness or abnormalities Oropharynx: Lips, mucosa, and tongue normal, teeth and gums normal, oropharynx normal Neck: Not examined Lungs: Unlabored on room air Heart: Not examined Extremities: No deformities, edema, skin discoloration, clubbing or cyanosis. Good capillary refill. Neuro: Gait normal. Reflexes normal and symmetric. Sensation grossly intact. Abdomen: Negative Convolute Tube Winder present: Yes () ASSESSMENT 68-year-old male with excellent functional status and no significant history who presented to an outside hospital with near complete gastric outlet obstruction that was attributed to an uncinate process mass versus D3 mass based on a CT scan without contrast. Upper endoscopy favors extrinsic compression of the duodenum but biopsies were negative. The patient continues to have progressive symptoms of obstruction and has been severely malnourished for the past 4 weeks. RECOMMENDATION I expressed to the patient my concern about his nutritional status. He can only tolerate small amounts of liquids and has not had adequate caloric intake for many weeks. He is also rapidly losing weight. I recommended admission to the hospital with NG decompression, parenteral nutrition, and higher quality CT scan with IV contrast if his creatinine allows. I suspect signs of dehydration on his labs which hopefully can be corrected with IV hydration and improved venous nutrition. My initial suspicion based on the patient's upper endoscopy and the CT is an uncinate process mass which could be a neuroendocrine tumor given the presence of some calcification on the CT scan. Further workup is required as an inpatient with a possibility of an operation for either resection or to bypass the obstructed area and restore the patient's ability for oral nutrition. The patient and his understand the components of this plan and agreed to proceed to the emergency room for admission to the hospital. Medical Decision Making: Problems: Moderate: New problem with uncertain prognosis Data: Unique source(s) for external note(s) reviewed: 3+ Unique test result(s) reviewed: 3+ Assessment requiring an independent historian(s) Independent interpretation of test from other physician/QHCP Discussed management or test w/ external physician/QHCP/source Risk: High: Decision on hospitalization Medical Decision Making Level: 5 - High Cleveland Alberts MD [facility] [place] August 07, 2023 documented in this encounter [facility] 08-05-2023 Miscellaneous Notes Called patient and spoke with him about coming for a visit with Dr. Alberts. Patient understands he was referred by Dr. Linder. Asked patient to bring any past medical history with him. Patient understanding and thankful for call and appointment. *Requested images to be pushed from [facility] 08/05. Also faxed release of information to patients PCP - Dr. Cannon in [facility]. documented in this encounter [facility] 07-29-2023 Miscellaneous Notes New patient referral from Dr. Linder's office ([phone]) to Dr. Alberts for Duodenal Mass. Contacted the office to resend records. Please advise on scheduling documented in this encounter [facility] 07-26-2023 Progress note Note Date/Time July 26, 2023 11:49am [facility] [address] [place] [address] Nephrology Progress Note Signed Patient: Aisha Julien MR#: [id number] : 1955 Acct:[id number] Age/Sex: 68 / M Adm Date: 3 Loc: Room: [address] [place] [address] Type: ADM IN Attending Dr: Gela Eller MD Copies to: ~ Date of Service: 07/26/2023 Subjective Subjective Narrative: This is 68-year-old male patient with a past medical history of BPH, GERD, mild CKD.Patient presented to the hospital for worsening weakness dizziness with nausea and vomiting along with epigastric pain for the last 1 months. Patient also reported decreased oral intake with weight loss over the last 3 months. Lab work at admission revealed severe ENEDINA with initial creatinine 4.5, potassiumalso was low at 2.9. CAT scan of abdomen and pelvis without contrast showed duodenal mass with obstruction high suspicious for malignancy. Patient was admitted and given 2 L of normal saline and kept on normal saline with potassiumchloride at 150 cc/h. Home blood pressure medications including diltiazem and losartan metoprolol were held due to hypotension at admission. Patient was kepton BPH medication Flomax and fluid finasteride Patient stated he is feeling better. Denied any dizziness. He is n.p.o. and scheduled for EGD this morning. Denied NSAID use. No recent IV contrast exposure. Denies urinary obstructive symptoms. Interval history. Patient was seen and examined in his room. Patient had EGD yesterday which showed esophagitis with external mass effect on the duodenum. Biopsies were taken Patient denied worsening breathing. No nausea no vomiting. Patient able to tolerate breakfast this morning remains on Ringer lactate 75 cc/h. Kidney function continues to improve Exam Physical Exam Vital Signs: Temp Pulse Resp BP Pulse Ox O2 Del Method 97.7 F 70 18 125/70 97 Room Air 07/26/23 08:00 07/26/23 08:00 07/26/23 08:00 07/26/23 08:00 07/26/23 08:00 07/26/23 08:00 Narrative: General: No acute distress Head :atraumatic normocephalic Eyes: PERRLA. Neck: no JVD no bruit. Heart: S1-S2. RRR Respiratory: Clear to auscultation. No wheezing. No crackles Abdomen: Soft, positive bowel sounds,no tenderness. Neurology: Awake alert oriented x3. No focal deficits Extremity. No cyanosis. No edema Skin: No skin rash Objective Intake and Output I&O: Intake & Output 07/23/23 07/24/23 07/25/23 07/26/23 23:59 23:59 23:59 23:59 Intake Total 3000 / 3000 1440 / 1440 1100 / 1100 Output Total 0 / 350 790 / 790 Balance 3000 / 2650 650 / 650 1100 / 1100 Weight 72.5 kg 72.1 kg 74.9 kg Meds and Allergies Meds: Active Medications Acetaminophen (Acetaminophen 325 Mg Tablet) 650 mg PO Q4H PRN PRN Reason: Pain Scale 1 - 5 Stop: 07/23/24 16:29 Albuterol (Albuterol Neb 2.5 Mg/3 Ml Vial.Neb) 2.5 mg INHALATION Q2H PRN PRN Reason: Shortness Of Breath Stop: 07/23/24 16:29 Docusate Sodium (Docusate 100 Mg Capsule) 200 mg PO BID PRN PRN Reason: Constipation Stop: 07/23/24 16:29 Finasteride (Finasteride 5 Mg Tablet) 5 mg PO QAM [facility] Stop: 07/24/24 08:59 Last Admin: 07/26/23 08:40 Dose: 5 mg Hydralazine HCl (Hydralazine 20 Mg/Ml Vial) 10 mg IV-PUSH Q4H PRN PRN Reason: if SBP > 185 Stop: 07/23/24 16:29 Hydromorphone HCl (Hydromorphone 1 Mg/Ml Syringe) 0.25 mg IV-PUSH Q4H PRN PRN Reason: pain Lactated Ringer's (Lactated Ringers) 1,000 mls @ 75 mls/hr IV .[id number] [facility] Stop: 07/24/24 13:14 Last Admin: 07/26/23 03:54 Dose: 75 mls/hr Sodium Chloride (0.9% Sodium Chloride 1,000 Ml) 1,000 mls @ 20 mls/hr IV .Q24H [facility] Stop: 07/24/24 13:59 Last Admin: 07/25/23 13:51 Dose: 20 mls/hr Pantoprazole Sodium (Pantoprazole 40 Mg Vial) 40 mg IV-PUSH BID [facility] Stop: 07/23/24 20:59 Last Admin: 07/26/23 08:40 Dose: 40 mg Sodium Chloride (Sodium Chloride 0.9 % 10 Ml Syringe) 0 ml IV-PUSH PRN PRN PRN Reason: Flush Stop: 07/23/24 12:11 Last Admin: 07/26/23 08:42 Dose: 10 ml Sodium Chloride (Sodium Chloride 0.9 % 10 Ml Vial.Pf) 10 ml INJECTION PRN PRN PRN Reason: Dilution Stop: 07/23/24 16:52 Last Admin: 07/26/23 08:40 Dose: 10 ml Sodium Chloride (Sodium Chloride 0.9 % 10 Ml Syringe) 10 ml IV-PUSH PRN PRN PRN Reason: Flush Stop: 07/23/24 16:52 Last Admin: 07/25/23 07:58 Dose: 10 ml Tamsulosin HCl (Tamsulosin 0.4 Mg Cap.Er.24h) 0.4 mg PO QAM [facility] Stop: 07/24/24 08:59 Last Admin: 07/26/23 08:40 Dose: 0.4 mg Allergies No Known Allergies Allergy (Verified 07/24/23 12:12) Results Labs 07/26/23 05:56 07/26/23 05:56 Labs: 07/26/23 05:56 BUN 29 H Creatinine 1.71 H D Radiology Impressions Impressions - last 24 hours: Any impression(s) listed above is documentation that was entered by the reading physician into a diagnostic report(s) for Aishaba Julien. I have reviewed the report(s) and am incorporating any findings in the treatment plan of this patient where applicable. A&P - Nephrology Assessment/Plan (1) Acute renal failure: Assessment/Problem Details: Acute kidney injury is likely prerenal related to depleted intravascular volume from nausea vomiting and poor oral intake. Patient also was on losartan at homewhich likely contributing to prerenal ENEDINA etiology. UA is benign except 30 protein and 5-9 RBCs. Baseline creatinine around 1.2 mg deciliter (2) Hypokalemia: Assessment/Problem Details: This is likely related to poor oral intake along with vomiting. Potassium levelcorrected with IV replacement (3) Hypotension: Assessment/Problem Details: Patient has history of hypertension and is on diltiazem metoprolol and losartan at home. Patient presented with a low blood pressure likely from to be intravascular volume. Currently on home blood pressure medications on hold (4) Duodenal mass: Assessment/Problem Details: CAT scan of abdomen pelvis revealed obstructive duodenal mass. Currently n.p.o.for EGD this morning Plan * Kidney function has improved with intravascular volume expansion. * Continue holding home blood pressure medications. Continue IV fluid Ringer lactate at 75 cc/h * Potassium level corrected placement. * Keep mean arterial pressure more than 65 * Status post EGD yesterday. GI is following Okay to discharge patient from nephrology standpoint. Home blood pressure medications (except losartan) can be resumed at discharge. Losartan can be resumed when patient follow with his PCP if kidney function is back to his baseline .check renal function panel in 3 days after discharge Documented By: Jose A Calzada MD 07/26/23 1146 Signed By: <Electronically signed by Jose A Calzada MD> 07/26/23 6643 [facility] Work Phone: 1(230) 879-709212-01-2023 Progress note Author Gela Eller [facility] July 25, 2023 12:59pm Note Date/Time July 25, 2023 1 2:59pm [facility] [address] [place] [address] Hospitalist Progress Note Signed Patient: Aisha Julien MR#: [id number] : 1955 Acct:[id number] Age/Sex: 68 / M Adm Date: 3 Loc: Room: [address] [place] [address] Type: ADM IN Attending Dr: Gela Eller MD Copies to: ~ Date of Service: 07/25/2023 Subjective Subjective Narrative: Patient has been seen and examined today. He is doing significantly better. Still has some abdominal discomfort in epigastric area, with some nausea but no vomiting. Dizziness resolved. But he was not ambulating much. No chest pain no shortness of breath Physical exam: General -awake, alert, oriented ?3, not in acute distress, lying in flat position, dry oropharyngeal mucosa noted, blood pressure at the lower range Cardiovascular -S1 with S2, no murmurs, no rubs, no gallops Pulmonary - clear to auscultation bilaterally Gastrointestinal - abdomen is soft, nondistended, nontender, bowel sounds positive, there is no rigidity, no rebound Extremities -no edema Neurological -no focal neurological dysfunction noted Exam Physical Exam Vital Signs: Temp Pulse Resp BP Pulse Ox O2 Del Method 36.6 C 60 16 97/55 L 99 Room Air 07/25/23 08:00 07/25/23 08:00 07/25/23 08:00 07/25/23 08:00 07/25/23 08:00 07/25/23 08:00 Objective Lab Results 07/25/23 05:46 07/25/23 05:46 Meds Allergies and Active Meds Allergies No Known Allergies Allergy (Verified 07/24/23 12:12) Active Meds: Active Medications Generic Name Dose Route Start Last Admin Trade Name Freq PRN Reason Stop Dose Admin Acetaminophen 650 mg 07/24/23 16:30 Acetaminophen 325 Mg Tablet PO 07/23/24 16:29 Q4H PRN Pain Scale 1 - 5 Albuterol 2.5 mg 07/24/23 16:30 Albuterol Neb 2.5 Mg/3 Ml Vial.Neb INHALATION 07/23/24 16:29 Q2H PRN Shortness Of Breath Docusate Sodium 200 mg 07/24/23 16:30 Docusate 100 Mg Capsule PO 07/23/24 16:29 BID PRN Constipation Finasteride 5 mg 07/25/23 09:00 Finasteride 5 Mg Tablet PO 07/24/24 08:59 QAM [facility] Hydralazine HCl 10 mg 07/24/23 16:30 Hydralazine 20 Mg/Ml Vial IV-PUSH 07/23/24 16:29 Q4H PRN if SBP > 185 Hydromorphone HCl 0.25 mg 07/24/23 16:30 Hydromorphone 1 Mg/Ml Syringe IV-PUSH Q4H PRN pain Potassium Chloride/Sodium Chloride 1,000 mls @ 150 mls/hr 07/24/23 13:45 07/25/23 11:24 0.9% Nacl-40 Meq Kcl IV 07/23/24 13:44 150 mls/hr .Q6H40M [facility] Administration Pantoprazole Sodium 40 mg 07/24/23 21:00 07/25/23 07:59 Pantoprazole 40 Mg Vial IV-PUSH 07/23/24 20:59 40 mg BID [facility] Administration Sodium Chloride 0 ml 07/24/23 12:12 07/24/23 22:15 Sodium Chloride 0.9 % 10 Ml Syringe IV-PUSH 07/23/24 12:11 10 ml PRN PRN Administration Flush Sodium Chloride 10 ml 07/24/23 16:53 07/25/23 07:58 Sodium Chloride 0.9 % 10 Ml Vial.Pf INJECTION 07/23/24 16:52 10 ml PRN PRN Administration Dilution Sodium Chloride 10 ml 07/24/23 16:53 07/25/23 07:58 Sodium Chloride 0.9 % 10 Ml Syringe IV-PUSH 07/23/24 16:52 10 ml PRN PRN Administration Flush Tamsulosin HCl 0.4 mg 07/25/23 09:00 Tamsulosin 0.4 Mg Cap.Er.24h PO 07/24/24 08:59 QAM [facility] A&P - Hospitalist Assessment/Plan (1) Duodenal mass: Plan 1. Newly found intra-abdominal mass associated with poor appetite and weight loss, highly suspicious of malignancy CT scan shows questionable duodenal mass, plan for EGD today 2. Acute kidney injury, probably due to dehydration, no signs of bladder obstruction, Continue with IV fluids, kidney function improving 3. Hypotension, still persistent, due to above, continue with IV fluids Hold blood pressure medications 4. Severe hypokalemia, with normal magnesium, replacement 5. DVT prophylax Documented By: Gela Eller MD 07/25/23 1257 Signed By: <Electronically signed by Gela Eller MD> 07/25/23 1259 [facility] Work Phone: 1([phone] 675-627112-01-2023 History and physical note Author Gela Eller [facility] July 25, 2023 12:57pm Note Date/Time July 24, 2023 4:18pm [facility] [address] [place] [address] Hospitalist H&P Signed Patient: Aisha Julien MR#: [id number] : 1955 Acct:[id number] Age/Sex: 68 / M Adm Date: 3 Loc: Room: [address] [place] [address] Type: ADM IN Attending Dr: Gela Eller MD Copies to: MD Gela Velásquez MD~ HPI DATE OF EXAMINATION: 07/24/23 CHIEF COMPLAINT: Not feeling well HISTORY OF PRESENT ILLNESS: 68 years old male presented with not feeling well for about 1 month. According to the patient he has been having intermittent dizziness but no syncopal episode. Complains of nausea and episodes of vomiting. Also complains of upsetstomach in epigastric area after eating. No diarrhea. No shortness of breath no chest pain. No palpitations. He has been having poor p.o. appetite and lostabout 50 pounds within the last 1 year. He did have EGD 1 year ago, which showed gastritis. In emergency room patient was noted to be hypotensive, responded to IV fluids. CT scan of the abdomen showed A mass is noted in the region of the third portion the duodenum with associated obstruction of the stomach and proximal duodenum.. The case was discussed with gastroenterology. Patient was admitted for further evaluation and treatment. Patient admits to drinking approximately 10 beers per day, never had withdrawal seizures, denies any withdrawal symptoms Approximately half a year ago he did have a cardiac catheterization which did not reveal any coronary artery disease. Ventriculogram showed ejection [id number] Admission EKG showed normal sinus rhythm without significant acute ST-T wave changes, with QTc 464 10 systems are reviewed and are negative apart as mentioned H&P General -patient is awake alert oriented ?3, does not appear to be in distress, however he appears to be cachectic, HEENT -dry oropharyngeal mucosa without any ulcers or exudates Cardiovascular -S1 plus S2, with regular rate, without any murmurs, gallops, rubs Pulmonary -clear to auscultation bilaterally Gastrointestinal -abdomen is soft, mildly distended, with diffuse tenderness Genitourinary -no flank tenderness Musculoskeletal -no back tenderness, no significant joint swelling, full range of motion Neurological -no focal Skin -no significant ulcers, no rash noted Extremities - no edema in bilateral lower extremities noted Psychiatry - appropriate affect Laboratory work up, imaging studies reviewed EKG personally reviewed by me Previous records in the computer system reviewed A mass is noted in the region of the third portion the duodenum with associated obstruction of the stomach and proximal duodenum. The mass is difficult to measure but measures approximately 3.4 x 3.4 cm in greatest axial dimensions. There appears to be adjacent bulky lymphadenopathy involving the mesentery extending inferiorly some of which appears partially calcified. There also appears to be left periaortic lymphadenopathy. It is difficult to say with certainty whether this mass arises from the small bowel or pancreas. Given the partially calcified lymphadenopathy a carcinoid tumor is suspected. Further evaluation with endoscopy and EUS is suggested. Findings have progressed since the prior study. Mesenteric engorgement is seen. Given the size of the mass, portal vein/SMV thrombosis cannot be excluded. [facility] Medical History (Updated 07/25/23 @ 12:42 by Jose A Calzada MD) Arthritis BPH (benign prostatic hyperplasia) GERD (gastroesophageal reflux disease) Hypertension Kidney failure Pneumothorax on left following rib fracture Surgical History H/O: knee surgery scopes bilateral knee x 3 History of tonsillectomy Family History Father Heart disease History of heart surgery Myocardial infarction Sister Liver cancer Social History Smoking Status: Never smoker Substance Use Type: Alcohol and Marijuana Substance Abuse Comment: 10 beers a day Meds Medications and Allergies Allergies No Known Allergies Allergy (Verified 07/24/23 12:12) Home Medications losartan 100 mg tablet 100 mg PO QAM 11/29/21 [History Confirmed 07/24/23] metoprolol succinate 100 mg tablet,extended release 24 hr 50 mg PO QAM 11/29/21 [History Confirmed 07/24/23] tamsulosin 0.4 mg capsule 0.4 mg PO QA 11/29/21 [History Confirmed 07/24/23] finasteride 5 mg tablet 5 mg PO QA 01/15/23 [History Confirmed 07/24/23] potassium gluconate 595 mg (99 mg) tablet 99 mg PO [facility] 01/15/23 [History Confirmed 07/24/23] diltiazem HCl 180 mg capsule,extended release 24 hr 180 mg PO DAILY 07/24/23 [History Confirmed 07/24/23] Exam Physical Exam Vital Signs: Temp Pulse Resp BP Pulse Ox O2 Del Method 36.4 C 66 16 89/55 L 98 Room Air 07/24/23 12:15 07/24/23 15:57 07/24/23 15:53 07/24/23 15:53 07/24/23 15:53 07/24/23 15:53 Results Lab Results Labs: Laboratory Last Values Corrected WBC 7.3 X10E3/uL (4.1-10.5) 07/24/23 12:28 Uncorrected WBC Count 7.3 x10E3/uL (4.1-10.5) 07/24/23 12:28 RBC 4.60 X10E6/uL (3.90-5.60) 07/24/23 12:28 Hgb 13.7 g/dL (13.0-17.0) 07/24/23 12:28 Hct 40.5 % (38.8-50.0) 07/24/23 12:28 MCV 88.1 fl (83.5-101) 07/24/23 12:28 MCH 29.8 pg (27.5-35.2) 07/24/23 12:28 MCHC 33.8 g/dL (32.5-35.6) 07/24/23 12:28 RDW 12.4 % (12.0-14.8) 07/24/23 12:28 Plt Count 256 x10E3/uL (150-450) 07/24/23 12:28 MPV 10.8 fl (6.6-10.1) H 07/24/23 12:28 Neut % (Auto) 75.6 % (.) 07/24/23 12:28 Lymph % (Auto) 12.6 % (.) 07/24/23 12:28 [place] % (Auto) 10.3 % (.) 07/24/23 12:28 Eos % (Auto) 1.0 % (.) 07/24/23 12:28 Baso % (Auto) 0.5 % (.) 07/24/23 12:28 Nucleat RBC Rel Count 0.2 /100 WBC (0-0.5) 07/24/23 12:28 Neut # (Auto) 5.5 x10E3/uL (1.8-7.7) 07/24/23 12:28 Lymph # (Auto) 0.9 x10E3/uL (1.00-4.8) L 07/24/23 12:28 [place] # (Auto) 0.8 x10E3/uL (0.0-0.8) 07/24/23 12:28 Eos # (Auto) 0.1 x10E3/uL (0.0-0.45) 07/24/23 12:28 Baso # (Auto) 0.0 x10E3/uL (0.0-0.2) 07/24/23 12:28 Monocyte Dist Width 21.73 % (0.00-20.00) H 07/24/23 12:28 PT 12.2 Seconds (9.0-12.9) 07/24/23 12:28 INR 1.0 07/24/23 12:28 PHA Creatinine Clear 15.40 07/24/23 12:28 Sodium 134 mmol/L (136-145) L 07/24/23 12:28 Potassium 2.9 mmol/L (3.5-5.1) L* 07/24/23 12:28 Chloride 84 mmol/L (98-107) L 07/24/23 12:28 Carbon Dioxide 34.9 mmol/L (21.0-31.0) H 07/24/23 12:28 Anion Gap 18.0 mEq/L (6.0-15.0) H 07/24/23 12:28 BUN 56 mg/dL (7-25) H 07/24/23 12:28 Creatinine 4.59 mg/dL (0.70-1.30) H 07/24/23 12:28 Est GFR (CKD-EPI) 13.168 mL/Min 07/24/23 12:28 Glucose 128 mg/dL (70-100) H 07/24/23 12:28 Calcium 9.6 mg/dL (8.6-10.3) 07/24/23 12:28 Magnesium 2.1 mg/dL (1.9-2.7) 07/24/23 12:28 Magnesium Cancelled 07/24/23 12:28 Total Bilirubin 0.8 mg/dl (0.3-1.0) 07/24/23 12:28 Direct Bilirubin 0.20 mg/dL (0.03-0.18) H 07/24/23 12:28 Indirect Bilirubin 0.6 mg/dL 07/24/23 12:28 AST 24 U/L (13-39) 07/24/23 12:28 ALT 12 U/L (7-52) 07/24/23 12:28 Alkaline Phosphatase 72 U/L (34-104) 07/24/23 12:28 Troponin I High Sens 11.8 pg/mL (0.0-20.0) 07/24/23 12:28 Total Protein 7.8 gm/dL (6.4-8.9) 07/24/23 12:28 Albumin 4.3 gm/dL (3.5-5.7) 07/24/23 12:28 Globulin 3.5 gm/dL 07/24/23 12:28 Albumin/Globulin Ratio 1.2 07/24/23 12:28 Lipase 90.0 U/L (11.0-82.0) H 07/24/23 12:28 Urine Color Yellow (Yellow) 07/24/23 13:54 Urine Appearance Clear (Clear) 07/24/23 13:54 Urine pH 5.5 (5.0-9.0) 07/24/23 13:54 Ur Specific Pierre Part 1.015 (1.001-1.030) 07/24/23 13:54 Urine Protein 30 mg/dL (Negative) H 07/24/23 13:54 Urine Glucose (UA) Normal mg/dL (Normal) 07/24/23 13:54 Urine Ketones Trace (Negative) H 07/24/23 13:54 Urine Occult Blood Negative (Negative) 07/24/23 13:54 Urine Nitrite Negative (Negative) 07/24/23 13:54 Urine Bilirubin Negative (Negative) 07/24/23 13:54 Urine Urobilinogen Normal mg/dL (Normal) 07/24/23 13:54 Ur Leukocyte Esterase Negative (Negative) 07/24/23 13:54 Urine RBC 5-9 /HPF (0-4) H 07/24/23 13:54 Urine WBC 0-1 /HPF (0-4) 07/24/23 13:54 Ur Squamous Epith Cells None seen /HPF (0-2) 07/24/23 13:54 Urine Bacteria None seen (None Seen) 07/24/23 13:54 Hyaline Casts None seen /LPF (0-8) 07/24/23 13:54 Assessment & Plan Assessment/Plan (1) Duodenal mass: Plan 1. Newly found intra-abdominal mass associated with poor appetite and weight loss, highly suspicious of malignancy Gastroenterology notified, will keep n.p.o. 2. Acute kidney injury, probably due to dehydration, no signs of bladder obstruction, start IV fluid, strict input and output, avoid any nephrotoxic medications 3. Hypotension, due to above, continue with IV fluids Hold blood pressure medications 4. Severe hypokalemia, with normal magnesium, replacement 5. DVT prophylax IP vs OBS Justification Based on differential dx, clinical care plan, and risk of adverse events, if untreated, in my clinical judgement this patient requires an acute care setting as: INPATIENT because of an expectation of an over 2 midnight stay. Estimated length of stay (# of days): 3 Documented By: Gela Eller MD 07/24/23 1616 Signed By: <Electronically signed by Gela Eller MD> 07/25/23 1257 [facility] Work Phone: [phone] 294-161812-01-2023 Consult note Author Jose A Calzada [facility] July 25, 2023 12:45pm Note Date/Time July 25, 2023 1 2:45pm [facility] [address] [place] [address] Nephrology Consult Note Signed Patient: Aisha Julien MR#: [id number] : 1955 Acct:[id number] Age/Sex: 68 / M Adm Date: 3 Loc: Room: [address] [place] [address] Type: ADM IN Attending Dr: Gela Eller MD Copies to: MD Rene Urena MD Ruta Semaskiene, MD~ Providers Consult Date: 07/25/23 Requesting Provider: Gela Eller MD Primary Care Provider: Rene Cannon MD [facility] Reason for Consult: ENEDINA History of Present Illness: This is 68-year-old male patient with a past medical history of BPH, GERD, mild CKD.Patient presented to the hospital for worsening weakness dizziness with nausea and vomiting along with epigastric pain for the last 1 months. Patient also reported decreased oral intake with weight loss over the last 3 months. Lab work at admission revealed severe ENEDINA with initial creatinine 4.5, potassiumalso was low at 2.9. CAT scan of abdomen and pelvis without contrast showed duodenal mass with obstruction high suspicious for malignancy. Patient was admitted and given 2 L of normal saline and kept on normal saline with potassiumchloride at 150 cc/h. Home blood pressure medications including diltiazem and losartan metoprolol were held due to hypotension at admission. Patient was kepton BPH medication Flomax and fluid finasteride Patient stated he is feeling better. Denied any dizziness. He is n.p.o. and scheduled for EGD this morning. Denied NSAID use. No recent IV contrast exposure. Denies urinary obstructive symptoms. Review of Systems Review of Systems Review of systems: 12 system review is negative this morning [facility] Medical History (Updated 07/25/23 @ 12:42 by Jose A Calzada MD) Arthritis BPH (benign prostatic hyperplasia) GERD (gastroesophageal reflux disease) Hypertension Kidney failure Pneumothorax on left following rib fracture Surgical History H/O: knee surgery scopes bilateral knee x 3 History of tonsillectomy Family History Father Heart disease History of heart surgery Myocardial infarction Sister Liver cancer Social History Smoking Status: Never smoker Substance Use Type: Alcohol Substance Abuse Comment: 6 to 10 beers daily Meds Medications & Allergies Allergies No Known Allergies Allergy (Verified 07/24/23 12:12) Home Medications losartan 100 mg tablet 100 mg PO QAM 11/29/21 [History Confirmed 07/24/23] metoprolol succinate 100 mg tablet,extended release 24 hr 50 mg PO QAM 11/29/21 [History Confirmed 07/24/23] tamsulosin 0.4 mg capsule 0.4 mg PO QAM 11/29/21 [History Confirmed 07/24/23] finasteride 5 mg tablet 5 mg PO QAM 01/15/23 [History Confirmed 07/24/23] potassium gluconate 595 mg (99 mg) tablet 99 mg PO QA 01/15/23 [History Confirmed 07/24/23] diltiazem HCl 180 mg capsule,extended release 24 hr 180 mg PO DAILY 07/24/23 [History Confirmed 07/24/23] Active Medications: Active Medications Acetaminophen (Acetaminophen 325 Mg Tablet) 650 mg PO Q4H PRN PRN Reason: Pain Scale 1 - 5 Stop: 07/23/24 16:29 Albuterol (Albuterol Neb 2.5 Mg/3 Ml Vial.Neb) 2.5 mg INHALATION Q2H PRN PRN Reason: Shortness Of Breath Stop: 07/23/24 16:29 Docusate Sodium (Docusate 100 Mg Capsule) 200 mg PO BID PRN PRN Reason: Constipation Stop: 07/23/24 16:29 Finasteride (Finasteride 5 Mg Tablet) 5 mg PO [facility] Stop: 07/24/24 08:59 Hydralazine HCl (Hydralazine 20 Mg/Ml Vial) 10 mg IV-PUSH Q4H PRN PRN Reason: if SBP > 185 Stop: 07/23/24 16:29 Hydromorphone HCl (Hydromorphone 1 Mg/Ml Syringe) 0.25 mg IV-PUSH Q4H PRN PRN Reason: pain Potassium Chloride/Sodium Chloride (0.9% Nacl-40 Meq Kcl) 1,000 mls @ 150 mls/hr IV .Q6H40M [facility] Stop: 07/23/24 13:44 Last Admin: 07/25/23 11:24 Dose: 150 mls/hr Pantoprazole Sodium (Pantoprazole 40 Mg Vial) 40 mg IV-PUSH BID NOMI Stop: 07/23/24 20:59 Last Admin: 07/25/23 07:59 Dose: 40 mg Sodium Chloride (Sodium Chloride 0.9 % 10 Ml Syringe) 0 ml IV-PUSH PRN PRN PRN Reason: Flush Stop: 07/23/24 12:11 Last Admin: 07/24/23 22:15 Dose: 10 ml Sodium Chloride (Sodium Chloride 0.9 % 10 Ml Vial.Pf) 10 ml INJECTION PRN PRN PRN Reason: Dilution Stop: 07/23/24 16:52 Last Admin: 07/25/23 07:58 Dose: 10 ml Sodium Chloride (Sodium Chloride 0.9 % 10 Ml Syringe) 10 ml IV-PUSH PRN PRN PRN Reason: Flush Stop: 07/23/24 16:52 Last Admin: 07/25/23 07:58 Dose: 10 ml Tamsulosin HCl (Tamsulosin 0.4 Mg Cap.Er.24h) 0.4 mg PO QAM [facility] Stop: 07/24/24 08:59 Exam Physical Exam Vital Signs: Temp Pulse Resp BP Pulse Ox O2 Del Method 97.9 F 60 16 97/55 L 99 Room Air 07/25/23 08:00 07/25/23 08:00 07/25/23 08:00 07/25/23 08:00 07/25/23 08:00 07/25/23 08:00 Narrative: General: No acute distress Head :atraumatic normocephalic Eyes: PERRLA. Neck: no JVD no bruit. Heart: S1-S2. RRR Respiratory: Clear to auscultation. No wheezing. No crackles Abdomen: Soft, positive bowel sounds,no tenderness. Neurology: Awake alert oriented x3. No focal deficits Extremity. No cyanosis. No edema Skin: No skin rash Results Labs 07/25/23 05:46 07/25/23 05:46 Labs: 07/24/23 07/24/23 07/24/23 12:28 13:54 22:15 BUN 56 H 50 H Creatinine 4.59 H 3.42 H D Albumin 4.3 Urine Color Yellow Urine Appearance Clear Urine pH 5.5 Ur Specific Pierre Part 1.015 Urine Protein 30 H Urine Glucose (UA) Normal Urine Ketones Trace H Urine Occult Blood Negative Urine Nitrite Negative Ur Leukocyte Esterase Negative Urine RBC 5-9 H Urine WBC 0-1 Urine Bacteria None seen 07/25/23 05:46 BUN 44 H Creatinine 2.86 H D Albumin 3.4 L Urine Color Urine Appearance Urine pH Ur Specific Pierre Part Urine Protein Urine Glucose (UA) Urine Ketones Urine Occult Blood Urine Nitrite Ur Leukocyte Esterase Urine RBC Urine WBC Urine Bacteria Radiology Impressions Impressions - last 24 hours: Impressions Abdomen/Pelvis CT 07/24/23 14:00 IMPRESSION: A mass is noted in the region of the third portion the duodenum with associatedobstruction of the stomach and proximal duodenum. The mass is difficult to measure but measures approximately 3.4 x 3.4 cm in greatest axial dimensions. There appears to be adjacent bulky lymphadenopathy involving the mesentery extending inferiorly some of which appears partially calcified. There also appears to be left periaortic lymphadenopathy. It is difficult to say with certainty whether this mass arises from the small bowel or pancreas. Given the partially calcified lymphadenopathy a carcinoid tumor is suspected. Further evaluation with endoscopy and EUS is suggested. Findings have progressed since the prior study. Mesenteric engorgement is seen. Given the size of the mass, portal vein/SMV thrombosis cannot be excluded. Findings were discussed with Dr. Gutiérrez 2:44 PM 07/24/2023 Impression dictated by: Estephania Boykin Jr.OAlma07/24/2023 2:43 PM Dictation Location: [place] [address] Any impression(s) listed above is documentation that was entered by the reading physician into a diagnostic report(s) for Aisha Julien. I have reviewed the report(s) and am incorporating any findings in the treatment plan of this patient where applicable. A&P - Nephrology Assessment/Plan (1) Acute renal failure: Assessment/Problem Details: Acute kidney injury is likely prerenal related to depleted intravascular volume from nausea vomiting and poor oral intake. Patient also was on losartan at homewhich likely contributing to prerenal ENEDINA etiology. UA is benign except 30 protein and 5-9 RBCs. Baseline creatinine around 1.2 mg deciliter (2) Hypokalemia: Assessment/Problem Details: This is likely related to poor oral intake along with vomiting. Potassium levelcorrected with IV replacement (3) Hypotension: Assessment/Problem Details: Patient has history of hypertension and is on diltiazem metoprolol and losartan at home. Patient presented with a low blood pressure likely from to be intravascular volume. Currently on home blood pressure medications on hold (4) Duodenal mass: Assessment/Problem Details: CAT scan of abdomen pelvis revealed obstructive duodenal mass. Currently n.p.o.for EGD this morning Plan * Kidney function has improved with intravascular volume expansion. * Continue holding home blood pressure medications. Continue IV fluid at the current rate * Potassium level corrected. Continue KCl 40 mill equivalent in each liter of IV fluid. Continue to monitor potassium levels * Keep mean arterial pressure more than 65 * There is no need for renal placement therapy check renal function panel in the morning. Continue accurate urine output documentation * GI is following for obstructive duodenal mass For allow me to participate in Mr. Julien's care. Renal team will continue to follow. Call if any question or concern. Documented By: Jose A Calzada MD 07/25/23 1238 Signed By: <Electronically signed by Jose A Calzada MD> 07/25/23 1058 [facility] Work Phone: [phone] 944-131112-01-2023 [facility] Consult note Author Nohemy Linder [facility] July 24, 2023 4:38pm Note Date/Time July 24, 2023 4:35pm [facility] [address] [place] [address] Gastroenterology Consult Note Signed Patient: Aisha Julien MR#: [id number] : 1955 Acct:[id number] Age/Sex: 68 / M Adm Date: 3 Loc: Room: [address] [place] [address] Type: ADM IN Attending Dr: Gela Eller MD Copies to: MD Nohemy Velásquez MD Ruta Semaskiene, MD~ HPI Data of Consult Date of Consultation: 07/24/23 Consult Narrative History of present illness: Mr. Julien is a 68 year old male who gastroenterology is consulted for evaluation of duodenal mass. Patient reports abdominal pain after meals. He reports 25 pound unintentional weight loss over the last 6 months. Denied melena hematochezia change in bowel habits or other complaints. He drinks 10 beers a day for many years. Denies family history of pancreatic cancer. cc:: CC: Review of Systems Review of Systems All other systems reviewed & are negative unless noted below or in HPI [facility] Medical History (Updated 07/24/23 @ 16:37 by Nohemy Linder MD) Arthritis BPH (benign prostatic hyperplasia) GERD (gastroesophageal reflux disease) Hypertension Kidney failure Pneumothorax on left following rib fracture Surgical History H/O: knee surgery scopes bilateral knee x 3 History of tonsillectomy Family History Father Heart disease History of heart surgery Myocardial infarction Sister Liver cancer Social History Smoking Status: Never smoker Substance Use Type: Alcohol and Marijuana Substance Abuse Comment: 10 beers a day Meds Medications and Allergies Allergies No Known Allergies Allergy (Verified 07/24/23 12:12) Home Medications diltiazem HCl 240 mg capsule,extended release 24 hr 240 mg PO QAM 11/29/21 [History Confirmed 07/24/23] losartan 100 mg tablet 100 mg PO QAM 11/29/21 [History Confirmed 07/24/23] metoprolol succinate 100 mg tablet,extended release 24 hr 100 mg PO QAM 11/29/21[History Confirmed 07/24/23] tamsulosin 0.4 mg capsule 0.4 mg PO M 11/29/21 [History Confirmed 07/24/23] finasteride 5 mg tablet 5 mg PO M 01/15/23 [History Confirmed 07/24/23] potassium gluconate 595 mg (99 mg) tablet 99 mg PO [facility] 01/15/23 [History Confirmed 07/24/23] Exam Physical Exam Vital Signs: Temp Pulse Resp BP Pulse Ox O2 Del Method 97.6 F 66 16 89/55 L 98 Room Air 07/24/23 12:15 07/24/23 15:57 07/24/23 15:53 07/24/23 15:53 07/24/23 15:53 07/24/23 15:53 Narrative: General appearance: NAD Skin: No rashes or jaundice Eyes: Anicteric Oropharynx: MMM Neck: Supple Cardiac: No murmurs Lungs: CTA Abdomen: Soft, NT, ND, BS+. Extremities: No edema. Neuro: Ox3. Results Labs Labs: Laboratory Results - last 24 hr 07/24/23 07/24/23 07/24/23 12:28 12:28 12:28 Corrected WBC 7.3 Uncorrected WBC Count 7.3 RBC 4.60 Hgb 13.7 Hct 40.5 MCV 88.1 MCH 29.8 MCHC 33.8 RDW 12.4 Plt Count 256 MPV 10.8 H Neut % (Auto) 75.6 Lymph % (Auto) 12.6 [place] % (Auto) 10.3 Eos % (Auto) 1.0 Baso % (Auto) 0.5 Nucleat RBC Rel Count 0.2 Neut # (Auto) 5.5 Lymph # (Auto) 0.9 L [place] # (Auto) 0.8 Eos # (Auto) 0.1 Baso # (Auto) 0.0 Monocyte Dist Width 21.73 H PT 12.2 INR 1.0 PHA Creatinine Clear 15.40 Sodium 134 L Potassium 2.9 L* Chloride 84 L Carbon Dioxide 34.9 H Anion Gap 18.0 H BUN 56 H Creatinine 4.59 H Est GFR (CKD-EPI) 13.168 Glucose 128 H Calcium 9.6 Magnesium 2.1 Total Bilirubin 0.8 Direct Bilirubin 0.20 H Indirect Bilirubin 0.6 AST 24 ALT 12 Alkaline Phosphatase 72 Troponin I High Sens Total Protein 7.8 Albumin 4.3 Globulin 3.5 Albumin/Globulin Ratio 1.2 Lipase 90.0 H Urine Color Urine Appearance Urine pH Ur Specific Pierre Part Urine Protein Urine Glucose (UA) Urine Ketones Urine Occult Blood Urine Nitrite Urine Bilirubin Urine Urobilinogen Ur Leukocyte Esterase Urine RBC Urine WBC Ur Squamous Epith Cells Urine Bacteria Hyaline Casts 07/24/23 07/24/23 07/24/23 12:28 12:28 13:54 Corrected WBC Uncorrected WBC Count RBC Hgb Hct MCV MCH MCHC RDW Plt Count MPV Neut % (Auto) Lymph % (Auto) [place] % (Auto) Eos % (Auto) Baso % (Auto) Nucleat RBC Rel Count Neut # (Auto) Lymph # (Auto) [place] # (Auto) Eos # (Auto) Baso # (Auto) Monocyte Dist Width PT INR PHA Creatinine Clear Sodium Potassium Chloride Carbon Dioxide Anion Gap BUN Creatinine Est GFR (CKD-EPI) Glucose Calcium Magnesium Cancelled Total Bilirubin Direct Bilirubin Indirect Bilirubin AST ALT Alkaline Phosphatase Troponin I High Sens 11.8 Total Protein Albumin Globulin Albumin/Globulin Ratio Lipase Urine Color Yellow Urine Appearance Clear Urine pH 5.5 Ur Specific Pierre Part 1.015 Urine Protein 30 H Urine Glucose (UA) Normal Urine Ketones Trace H Urine Occult Blood Negative Urine Nitrite Negative Urine Bilirubin Negative Urine Urobilinogen Normal Ur Leukocyte Esterase Negative Urine RBC 5-9 H Urine WBC 0-1 Ur Squamous Epith Cells None seen Urine Bacteria None seen Hyaline Casts None seen A&P - Gastroenterology Assessment/Plan (1) Small bowel mass: Code(s): K63.89 - Other specified diseases of intestine Status: Acute (2) Epigastric pain: Code(s): R10.13 - Epigastric pain Status: Acute (3) Unintentional weight loss: Code(s): R63.4 - Abnormal weight loss Status: Acute Plan Mr. Julien is a 68 year old male who gastroenterology is consulted for evaluation of duodenal mass. + Postprandial abdominal pain. + Unintentional weight loss. + Alcohol dependence CT showed distention involving the first and second portions of the duodenum with a small bowel mass (3.4 cm) involving the third portion of the duodenum extending into the mesentery with presumed bulky lymphadenopathy Will arrange for EGD tomorrow. Please keep the patient n.p.o. after midnight Documented By: Nohemy Linder MD 07/24/231632 Signed By: <Electronically signed by Nohemy Linder MD> 07/24/231637 [facility] Work Phone: [phone]) 881-596207-01-2023 Evaluation note* Encounter Date Diagnosis Assessment Notes Treatment Notes Treatment Clinical Notes Feb, Visit for suture removal (ICD-10 - Z48.02) sutures removed successfully--see procedural note. wound healed up well. no questions or concerns. follow up with PCP prn. Feb, Laceration of nose, initial encounter (ICD-10 - S01.21XA) lac repair done in [facility] Other 05-26-2023 Discharge summary Author Joselito Madsen [facility] January 17, 2023 10:24am Note Date/Time January 17, 2023 10:[address] [facility] [address] [place] [address] Discharge Summary Signed Patient: Aisha Julien MR#: [id number] : 1955 Acct:[id number] Age/Sex: 67 / M Adm Date: 3 Loc: CL Room: Attending Dr: Joselito Madsen DO Copies to: MD Joselito Velásquez DO~ Providers Date of Discharge: 01/17/23 Discharging Provider: Joselito Madsen Primary Care Provider: Rene Cannon Discharge Diagnosis Final Diagnosis Final Discharge Diagnosis: 1. Abnormal cardiovascular stress 2. Acid reflux 3. Hypertension Summary Hospital Course Hospital course: 67-year-old gentleman evaluated for abnormal myocardial perfusion stress test with abnormal transient ischemic index, and here for elective heart catheterization. Heart catheter revealed normal coronary arteries normal left ventricular function Stress perfusion exam was falsely positive Patient warrants continued medical therapy Condition Condition at Discharge: Stable Status at Discharge Functional status at discharge: independent ambulation Overall status at discharge: patient is back to baseline Time Spent with Patient Time spent providing/coordinating discharge services (# min): 15 Surgeries and Procedures Operation Date: 01/17/23 09:15 Actual Procedures p CL LHC & COR Angio - Joselito Madsen DO Complications Complications: None Exam Physical Exam Vital Signs: Temp Pulse Resp BP Pulse Ox O2 Del Method 98.1 F 73 16 155/79 H 98 Room Air 01/17/23 07:26 01/17/23 07:26 01/17/23 07:26 01/17/23 07:26 01/17/23 07:26 01/17/23 07:52 Discharge Plan Discharge Plan Patient Disposition: Home Diet: Low-Cholesterol Additional Instructions: DISCHARGE INSTRUCTIONS FOR CARDIAC AIRPORT PLANNER PHONE NUMBER OF YOUR PHYSICIAN: [phone] PROCEDURE: Heart Cath The following instructions have been prepared to help you care for yourself, or be cared for upon your return home. 1. You were given conscious sedation. Do not operate a vehicle, power tools, make important decisions, or drink alcohol for 24 hours. You might be drowsy orlight headed. Return to the Emergency Room if you have trouble breathing, walking or nausea and vomiting. 2. FOR BLEEDING: Apply continuous pressure to the site and call 911. 3. Operative Site Care: Keep the dressing clean and dry. You may change the dressing only if soiled or wet. You may remove the dressing the following morning. You may wash over the puncture site in the shower. If the puncture site is at the wrist no soaking for 3 days. Some bruising or slight swelling may be present. -Signs of infection are redness, warmth, swelling, getting more sore, colored drainage, fever or chills. -Should the arm or leg become cold, numb, blue or white, call the brush holder inspector immediately. 4. ACTIVITY: You are advised to go directly home from the hospital. Restrict your activities for the rest of the day. Resume light or normal activities tomorrow. Do not engage in any activity that will stress the puncture site. Avoid heavy lifting (over 15 lbs.), straining or bending at the catheter site for 48 hours after discharge. If the puncture site is at the wrist do not manipulate wrist for 24 hours and no lifting more than 3 lbs for 3 days. 5. DIET:You may eat your regular diet when you desire. 6. MEDICATIONS: Resume your daily prescription schedule. Prescriptions may be sent with you if needed. Use as directed. When taking pain medications, you may experience dizziness or drowsiness. Do not drink alcohol or drive when taking pain medications. 7. If you should experience episodes of angina e.g. chest discomfort, heaviness, tightness, pressure, burning, with or without radiation to the neck, jaws, arms, or back- Use 1 Nitrostat under your tongue every 5-10 minutes, and up to 3 tablets. If no relief- Call 911 and go to the nearest Emergency Room. -Notify the office for recurrent angina, chest pain or other concerns. You may NOT drive yourself home! Follow the medication instructions provided on your discharge. If the dosages and instructions on this sheet differ from the dosage and instructions on the bottle, follow the instructions on the bottle. [facility] is not responsible for incorrect prescription information provided by thepatient during their visit. Do not stop your medications without consulting your health care provider. Please take the list with you to your next doctor's appointment. Prescriptions: Continued diltiazem HCl 240 mg capsule,extended release 24hr 240 mg PO QAM Patient Comments: TAKE 1 CAPSULE BY MOUTH EVERY DAY metoprolol succinate 100 mg tablet extended release 24 hr 50 mg PO QAM Patient Comments: TAKE 1/2 TABLET BY MOUTH ONCE A DAY tamsulosin 0.4 mg capsule 0.4 mg PO QAM Patient Comments: TAKE 1 CAPSULE BY MOUTH EVERY DAY FOR 90 DAYS losartan 100 mg tablet 100 mg PO QAM Patient Comments: TAKE 1 TABLET BY MOUTH EVERY DAY FOR 90 DAYS finasteride 5 mg tablet 5 mg PO QAM potassium gluconate 595 mg (99 mg) Tablet 99 mg PO QAM Follow Up: Rene Cannon MD [Primary Care Provider] - Documented By: Joselito Madsen DO 01/17/23 1021 Signed By: <Electronically signed by Joselito Madsen DO> 01/17/[address] [place] [address] Work Phone: 1(905) 767-615305-26-2023 [facility] Evaluation note* Encounter Date Diagnosis Assessment Notes Treatment Notes Treatment Clinical Notes Oct, Abdominal pain (ICD-10 - R10.9) OBTAIN RECORDS FROM [facility] GI OBTAIN COLONOSCOPY AND CT SCAN-[facility] Oct, Gastritis without bleeding, unspecified chronicity, unspecified gastritis type (ICD-10 - K29.70) Oct, GERD (gastroesophageal reflux disease) (ICD-10 - K21.9) STOP FAMOTIDINE [facility] Other 03-16-2022 History of Present illness Narrative* Caity Hamilton RCP - 11/07/2021 12:30 PM EDT The patient was educated on the use of an event monitor. The patient's comprehension was high. The patient was able to verbalize recall. The patient was instructed on how and when to return the monitor. documented in this [facility] [email or web address] Work Phone: 1(742) 367-466103-16-2022 Note [facility] Vascular Carotid Procedure Patient Name MARY BETH LEONARD Date of Study 11/07/2021 L Date of 1955 Gender Male Age 66 year(s) Race Room Number Corporate ID [id number] # Patient Acct [id number] # MR # [id number] Hand Decorator Jocelyn Mcghee, RT Interpreting Estephania Pichardo Physician Referring Referring Physician RENE CANNON, Nurse VERNA* Practitioner ELA RIDDLE * Procedure Type of Study: Cerebral: Carotid, Carotid Scan Bilateral. Indications for Study:Bruit, carotid. Patient Status:Routine. Conclusions Summary Mild increase in prox CCA velocity, without spectral broadening, not considered significant. Minimal plaque right CCA. Negative left sided study. Antegrade flow in the vertebrals. Signature Electronically signed by PERRY Magaña)Lindsey)NikkiCT)([facility])(Hand Decorator) on 11/07/2021 11:33 AM Findings: Right Impression: Left Impression: Heterogeneous plaquing distal Common carotid appears normal. CCA, minimal. External carotid artery appears normal. ECA and ICA appear normal. Minimal spectral broadening of the left Vertebral artery flow is internal carotid artery mid, without antegrade . elevation of peak systolic and end diastolic velocities. Pulsed Doppler, color Doppler Vertebral artery flow is antegrade . and real time sonography of the right carotid system. Pulsed Doppler, color Doppler and real time sonography of the left carotid system. Velocities are measured in cm/s ; Diameters are measured in cm Carotid Right Measurements + +--------+-------+-------+------+ + + !Location !PSV !EDV !Angle !RI !%Stenosis !Tortuosity ! + +--------+-------+-------+------+ + + !Prox CCA !210.63 !26.75 ! !0.87 ! ! ! + +--------+-------+-------+------+ + + !Mid CCA !114.34 !22.03 ! !0.81 ! ! ! + +--------+-------+-------+------+ + + !Dist CCA !114.34 !22.03 ! !0.81 ! ! ! + +--------+-------+-------+------+ + + !Prox ICA !74.3 !18.24 ! !0.75 ! ! ! + +--------+-------+-------+------+ + + !Mid ICA !89.69 !29.24 ! !0.67 ! ! ! + +--------+-------+-------+------+ + + !Dist ICA !76.5 !24.84 ! !0.68 ! ! ! + +--------+-------+-------+------+ + + !Prox ECA !112.72 !13.93 ! !0.88 ! ! ! + +--------+-------+-------+------+ + + !Vertebral !73.2 !14.95 ! !0.8 ! ! ! + +--------+-------+-------+------+ + + - There is antegrade vertebral flow noted on the right side. - Additional Measurements:ICAPSV/CCAPSV 0.43.ICAEDV/CCAEDV 1.09. Carotid Left Measurements + +--------+-------+-------+------+ + + !Location !PSV !EDV !Angle !RI !%Stenosis !Tortuosity ! + +--------+-------+-------+------+ + + !Prox CCA !156.34 !24.25 ! !0.84 ! ! ! + +--------+-------+-------+------+ + + !Mid CCA !158.32 !28.19 ! !0.82 ! ! ! + +--------+-------+-------+------+ + + !Dist CCA !134.66 !28.19 ! !0.79 ! ! ! + +--------+-------+-------+------+ + + !Prox ICA !99.19 !20.2 ! !0.8 ! ! ! + +--------+-------+-------+------+ + + !Mid ICA !87.54 !27.97 (more content not included)...[facility] CPACSEvaluation note* Diagnosis Chest pain, unspecified type Syncope, unspecified syncope type documented in this encounter [facility] Phone: [email or web address] note* Diagnosis Bruit Other symptoms involving cardiovascular system documented in this encounter [facility] Phone: [email or web address] noteNo InformationNort Cortica Other Evaluation noteNo assessment information available [facility] [employer] Work Phone: Evaluation note* Diagnosis Onset Date Resolution Status Acute renal failure acute Epigastric pain acute Hypokalemia acute Hypotension acute Small bowel mass acute Unintentional weight loss ac [facility] [employer] Work Phone: Evaluation note* Diagnosis Onset Date Resolution Status Acute renal failure acute Duodenal mass acute Epigastric pain acute Hypokalemia acute Hypotension acute Small bowel mass acute Unintentional weight loss ac [facility] [employer] Work Phone: Evaluation note* Diagnosis Gastric outlet obstruction- Primary Acquired hypertrophic pyloric stenosis documented in this encounter [facility] general Narrative - Reported* Type Description Date Medical History HTN Medical History GERD Surgical History knee arthroscopy BILATEAL-3 RAMSES ES EACH [facility] Other [facility] general Narrative - Reported* Type Description Date Medical History HTN Medical History GERD Surgical History knee arthroscopy BILATEAL-3 RAMSES ES EACH Hospitalization History DEHYDRATION [facility] Other Hospital Discharge instructions Additional Instructions DISCHARGE INSTRUCTIONS FOR CARDIAC AIRPORT PLANNER PHONE NUMBER OF YOUR PHYSICIAN: [phone] PROCEDURE: Heart Cath The following instructions have been prepared to help you care for yourself, or be cared for upon your return home. 1. You were given conscious sedation. Do not operate a vehicle, power tools, make important decisions, or drink alcohol for 24 hours. You might be drowsy or light headed. Return to the Emergency Room if you have trouble breathing, walking or nausea and vomiting. 2. FOR BLEEDING: Apply continuous pressure to the site and call 911. 3. Operative Site Care: Keep the dressing clean and dry. You may change the dressing only if soiled or wet. You may remove the dressing the following morning. You may wash over the puncture site in the shower. If the puncture site is at the wrist no soaking for 3 days. Some bruising or slight swelling may be present. -Signs of infection are redness, warmth, swelling, getting more sore, colored drainage, fever or chills. -Should the arm or leg become cold, numb, blue or white, call the brush holder inspector immediately. 4. ACTIVITY: You are advised to go directly home from the hospital. Restrict your activities for the rest of the day. Resume light or normal activities tomorrow. Do not engage in any activity that will stress the puncture site. Avoid heavy lifting (over 15 lbs.), straining or bending at the catheter site for 48 hours after discharge. If the puncture site is at the wrist do not manipulate wrist for 24 hours and no lifting more than 3 lbs for 3 days. 5. DIET:You may eat your regular diet when you desire. 6. MEDICATIONS: Resume your daily prescription schedule. Prescriptions may be sent with you if needed. Use as directed. When taking pain medications, you may experience dizziness or drowsiness. Do not drink alcohol or drive when taking pain medications. 7. If you should experience episodes of angina e.g. chest discomfort, heaviness, tightness, pressure, burning, with or without radiation to the neck, jaws, arms, or back- Use 1 Nitrostat under your tongue every 5-10 minutes, and up to 3 tablets. If no relief- Call 911 and go to the nearest Emergency Room. -Notify the office for recurrent angina, chest pain or other concerns. You may NOT drive yourself home! Follow the medication instructions provided on your discharge. If the dosages and instructions on this sheet differ from the dosage and instructions on the bottle, follow the instructions on the bottle. [facility] is not responsible for incorrect prescription information provided by the patient during their visit. Do not stop your medications without consulting your health care provider. Please take the list with you to your next doctor's appointment.[facility] Work Phone: Hospital Discharge instructions Additional Instructions You will need to follow-up with [place] clinic physician Dr. Bety Amin for further evaluation of your duodenal mass. Dr. Tadeo's office will arrange appointment and we will give [facility] a [facility] Work Phone: Progress note Author Gela Eller [facility] July 26, 2023 2:50pm Note Date/Time July 26, 2023 2 :50pm [facility] [address] [place] [address] Hospitalist Progress Note Signed Patient: Aisha Julien MR#: [id number] : 1955 Acct:[id number] Age/Sex: 68 / M Adm Date: 3 Loc: Room: [address] [place] [address] Type: ADM IN Attending Dr: Gela Eller MD Copies to: ~ Date of Service: 07/26/2023 Subjective Subjective Narrative: Patient has been seen and examined today. He is doing better, no dizziness no lightheadedness, no chest pain no shortness of breath Urinating quite well Physical exam: General -awake, alert, oriented ?3, not in acute distress, lying in flat position, blood pressure improved Cardiovascular -S1 with S2, no murmurs, no rubs, no gallops Pulmonary - clear to auscultation bilaterally Gastrointestinal - abdomen is soft, nondistended, nontender, bowel sounds positive, there is no rigidity, no rebound Extremities -no edema Neurological -no focal neurological dysfunction noted Exam Physical Exam Vital Signs: Temp Pulse Resp BP Pulse Ox O2 Del Method 36.5 C 66 18 130/60 98 Room Air 07/26/23 08:00 07/26/23 12:00 07/26/23 12:00 07/26/23 12:00 07/26/23 12:00 07/26/23 12:00 Objective Lab Results 07/26/23 05:56 07/26/23 05:56 Meds Allergies and Active Meds Allergies No Known Allergies Allergy (Verified 07/24/23 12:12) Active Meds: Active Medications Generic Name Dose Route Start Last Admin Trade Name Freq PRN Reason Stop Dose Admin Acetaminophen 650 mg 07/24/23 16:30 Acetaminophen 325 Mg Tablet PO 07/23/24 16:29 Q4H PRN Pain Scale 1 - 5 Albuterol 2.5 mg 07/24/23 16:30 Albuterol Neb 2.5 Mg/3 Ml Vial.Neb INHALATION 07/23/24 16:29 Q2H PRN Shortness Of Breath Docusate Sodium 200 mg 07/24/23 16:30 Docusate 100 Mg Capsule PO 07/23/24 16:29 BID PRN Constipation Finasteride 5 mg 07/25/23 09:00 07/26/23 08:40 Finasteride 5 Mg Tablet PO 07/24/24 08:59 5 mg QAM NOMI Administration Hydralazine HCl 10 mg 07/24/23 16:30 Hydralazine 20 Mg/Ml Vial IV-PUSH 07/23/24 16:29 Q4H PRN if SBP > 185 Hydromorphone HCl 0.25 mg 07/24/23 16:30 Hydromorphone 1 Mg/Ml Syringe IV-PUSH Q4H PRN pain Lactated Ringer's 1,000 mls @ 75 mls/hr 07/25/23 13:15 07/26/23 03:54 Lactated Ringers IV 07/24/24 13:14 75 mls/hr .[id number] NOMI Administration Sodium Chloride 1,000 mls @ 20 mls/hr 07/25/23 14:00 07/26/23 13:34 0.9% Sodium Chloride 1,000 Ml IV 07/24/24 13:59 Not Given .Q24H NOMI Pantoprazole Sodium 40 mg 07/24/23 21:00 07/26/23 08:40 Pantoprazole 40 Mg Vial IV-PUSH 07/23/24 20:59 40 mg BID NOMI Administration Sodium Chloride 0 ml 07/24/23 12:12 07/26/23 08:42 Sodium Chloride 0.9 % 10 Ml Syringe IV-PUSH 07/23/24 12:11 10 ml PRN PRN Administration Flush Sodium Chloride 10 ml 07/24/23 16:53 07/26/23 08:40 Sodium Chloride 0.9 % 10 Ml Vial.Pf INJECTION 07/23/24 16:52 10 ml PRN PRN Administration Dilution Sodium Chloride 10 ml 07/24/23 16:53 07/25/23 07:58 Sodium Chloride 0.9 % 10 Ml Syringe IV-PUSH 07/23/24 16:52 10 ml PRN PRN Administration Flush Tamsulosin HCl 0.4 mg 07/25/23 09:00 07/26/23 08:40 Tamsulosin 0.4 Mg Cap.Er.24h PO 07/24/24 08:59 0.4 mg QAM NOMI Administration A&P - Hospitalist Assessment/Plan (1) Duodenal mass: Plan 1. Newly found intra-abdominal mass associated with poor appetite and weight loss, highly suspicious of malignancy CT scan shows questionable duodenal mass, EGD showed LA grade B esophagitis, gastritis, narrow duodenal lumen in the thirdportion suggestive of external mass effect/compression I did discuss with retail loan originator, his office will arrange follow-up with gastroenterology at tertiary care center for EUS 2. Acute kidney injury, probably due to dehydration, no signs of bladder obstruction, C urinating well, kidney function improved, appreciate nephrology input 3. Hypotension resolved, blood pressure medications will be adjusted on discharge 4. Severe hypokalemia, with normal magnesium, replacement 5. DVT prophylax Plan to DC home Documented By: Gela Eller MD 07/26/23 1447 Signed By: <Electronically signed by Gela Eller MD> 07/26/23 1450 [facility] Work Phone: Summary Purpose Family History No Family History Records Found Relationship Condition Age at Onset Recorded Date/T jesus father Heart disease Unknown History of heart surgery Unknown Myocardial infarction Unknown sister Malignant neoplasm of liver Unknown Unknown Family Member Name Dates Details Anticoagulated: Mother Status:Active Family history of myocardial infarction: Father(V17.3, Z82.49) Status:Active : Father, Sister Status:Active S/P CABG (coronary artery by pass graft): Father(V45.81, Z95.1) Status:Active Family history of coronary a rtery disease: Father(V17.3, Z82.49) Status:Active Family history of hyperlipid emia: Father(V18.19, Z83.438) Status:Active Family history of malignant neoplasm: Sister(V16.9, Z80.9) Status:Active Family history of heart murm ur: Sister(V17.49, Z82.49) Status:Active Advance Directives No Advanced Directives Records Found Advance Directive Response Recorded Date/ Time Advance Directives No June 04, 2021 10:29am Advance Directive Response Recorded Date/ Time Advance Directives No June 04, 2021 9:29am Reason for Referral Specialty Diagnoses / Procedures Referred By Contac t Referred To Contact Diagnoses Chest pain, unspecified type Syncope, unspecified syncope type Procedures Cardiac event monitor Douglas Gutierrez MD [address] [place] [id number] Referral ID Status Reason Start Date Expiration Date Visits Re quested Visits Authorized [id number] Closed 10/25/2021 10/25/2022 1 1 Specialty Diagnoses / Procedures [facility] Referred To Contact Cardiology Diagnoses Chest pain, unspecified type Syncope, unspecified syncope type R07.9 (ICD-10-CM) - Chest pain, unspecified type Procedures Stress test, myoview CHG MYOCARDIAL SPECT MULTIPLE STUDIES 18080 - CHG MYOCARDIAL SPECT MULTIPLE STUDIES Douglas Gutierrez MD [address] [place] [address] [address] Referral ID Status Reason Start Date Expiration Date Visits Re quested Visits Authorized [id number] Closed 10/25/2021 10/25/2022 4 4 Specialty Diagnoses / Procedures [facility] Referred To Contact Vascular Lab Diagnoses Bruit R09.89 (ICD-10-CM) - Bruit Procedures VL DUP CAROTID BILATERAL NE DUPLEX SCAN EXTRACRANIAL,BILAT 23314 - NE DUPLEX SCAN EXTRACRANIAL,BILAT Douglas Gutierrez MD [address] [place] [address] Referral ID Status Reason Start Date Expiration Date V isits Requested Visits Authorized [id number] Pending Review 10/25/2021 10/25/2022 1 1 Chief Complaint and Reason for Visit Chief Complaint Abnormal Stress, SOB Abnormal Stress, SOB Chief Complaint dizzy,abnormal labs Reason for Visit Acute renal failure Epigastric pain Hypokalemia Hypotension Small bowel mass Unintentional weight loss Chief Complaint dizzy,abnormal labs Reason for Visit Acute renal failure Duodenal mass Epigastric pain Hypokalemia Hypotension Small bowel mass Unintentional weight loss Chief Complaint * AISHA JULIEN is being seen for cath follow up. * 67-year-old gentleman follows up for following recent heart catheterization performed for abnormal transient ischemic index; with findings of completely normal coronary arteries and normal left ventricular function. * His right radial access site is well-healed he has an excellent pulse, he has no history of coronary disease or cardiac events or heart failure. He remains stable * Recommendations, follow-up on a as needed basis Additional Source Comments (unrecognized sect ion and content) No Status Records FoundNo Status Records FoundNo Status Records FoundNo Status Records FoundNo Status Records FoundNo Status Records FoundNo Status Records FoundNo Status Records FoundNo Status Records Found INFORMATION SOURCE (unrecogn ized section and content) DATE CREATED AUTHOR 10/17/2021 [facility] dical Specialist DATE CREATED AUTHOR AUTHOR'S ORGANIZ ATION 11/04/2021 [facility] DATE CREATED AUTHOR AUTHOR'S ORGANIZ ATION 12/15/2021 [facility] DATE CREATED AUTHOR AUTHOR'S ORGANIZ ATION 07/05/2022 [facility] DATE CREATED AUTHOR AUTHOR'S ORGANIZ ATION 02/03/2023 [facility] DATE CREATED AUTHOR AUTHOR'S ORGANIZ ATION 08/01/2023 [facility] dical Specialists [facility] DATE CREATED AUTHOR AUTHOR'S ORGANIZ ATION 08/29/2023 [facility] DATE CREATED AUTHOR AUTHOR'S ORGANIZ ATION 09/04/2023 [facility] DATE CREATED AUTHOR AUTHOR'S ORGANIZ ATION 09/08/2023 [facility] Reason for Visit (unrecogniz ed section and content) Specialty Diagnoses / Procedures Referred By Contac t Referred To Contact Diagnoses Chest pain, unspecified type Syncope, unspecified syncope type Procedures Cardiac event monitor Douglas Gutierrez MD [address] [place] [address] Referral ID Status Reason Start Date Expiration Date Visits Re quested Visits Authorized [id number] Closed 10/25/2021 10/25/2022 1 1 Specialty Diagnoses / Procedures Referred By Contac t Referred To Contact Cardiology Diagnoses Chest pain, unspecified type Syncope, unspecified syncope type R07.9 (ICD-10-CM) - Chest pain, unspecified type Procedures Stress test, myoview CHG MYOCARDIAL SPECT MULTIPLE STUDIES 72272 - CHG MYOCARDIAL SPECT MULTIPLE STUDIES Douglas Gutierrez MD [address] [place] [address] [facility] [address] [place] [address] Referral ID Status Reason Start Date Expiration Date Visits Re quested Visits Authorized [id number] Closed 10/25/2021 10/25/2022 4 4 Specialty Diagnoses / Procedures Referred By Contac t Referred To Contact Vascular Lab Diagnoses Bruit R09.89 (ICD-10-CM) - Bruit Procedures VL DUP CAROTID BILATERAL NE DUPLEX SCAN EXTRACRANIAL,BILAT 93714 - NE DUPLEX SCAN EXTRACRANIAL,BILAT Douglas Gutierrez MD [address] [place] [address] Referral ID Status Reason Start Date Expiration Date V isits Requested Visits Authorized [id number] Pending Review 10/25/2021 10/25/2022 1 1 Reason Comments Appointment Reason Comments New Patient Evaluation Reason Comments [employer]ML[employer] Paperwork Care Teams (unrecognized sec tion and content) Team Status: Active Member Role Status Dates Rene Cannon MD Primary Care Provider Active Team Status: Inactive Member Role Status Dates Rene Cannon MD Primary Care Provider Active Jean Paul Gutiérrez DO Emergency Provider Active Gela Eller MD Admit Provider, Attending Provide r Active Jose A Calzada MD Other Provider Active Nohemy Linder MD Other Provider Active Team Status: Active Member Role Status Dates Rene Cannon MD Primary Care Provider Active Jean Paul Gutiérrez DO Emergency Provider Active Gela Eller MD Admit Provider, Attending Provide r Active Jose A Calzada MD Other Provider Active Nohemy Linder MD Other Provider Active Landcare Facilitator Relationship Specialty Start Date End Date Rene Cannon MD [address] [id number] PCP - General 10/17/21 Landcare Facilitator Relationship Specialty Start Date End Date Rene Cannon MD [address] [place] [address] PCP - General 10/17/21 Landcare Facilitator Relationship Specialty Start Date End Date Rene Cannon MD [address] [place] [address] PCP - General 10/17/21 Landcare Facilitator Relationship Specialty Start Date End Date Rene Cannon MD [address] [place] [address] PCP - General 10/17/21 Landcare Facilitator Relationship Specialty Start Date End Date Rene Cannon MD [address] [place] [address] PCP - General 10/17/21 Team Status: Inactive Member Role Status Dates Rene Cannon MD Primary Care Provider Active W Jean Madsen DO Attending Provider Active Landcare Facilitator Relationship Specialty Start Date End Date Rene Cannon MD [address] [place] [address] (Fax) PCP - General Family Medicine 08/05/23 Landcare Facilitator Relationship Specialty Start Date End Date Rene Cannon MD [address] [facility] [place] [address] (Fax) PCP - General Family Medicine 08/05/23 Landcare Facilitator Relationship Specialty Start Date End Date Rene Cannon MD [address] [facility] [place] [address] (Fax) PCP - General Family Medicine 08/05/23 Landcare Facilitator Relationship Specialty Start Date End Date Rene Cannon MD [address] [place] [address] PCP - General Family Medicine 08/05/23 Source Comments (unrecognize d section and content) In the event this informatio n is protected by the Federal Confidentiality of Alcohol and Drug Abuse Patient Records regulations: The Federal rules restrict any use of the information to criminally investigate or prosecute any alcohol or drug abuse patient.[facility] the event this information is protected by the Federal Confidentiality of Alcohol and Drug Abuse Patient Records regulations: The Federal rules restrict any use of the information to criminally investigate or prosecute any alcohol or drug abuse patient.[facility] the event this information is protected by the Federal Confidentiality of Alcohol and Drug Abuse Patient Records regulations: The Federal rules restrict any use of the information to criminally investigate or prosecute any alcohol or drug abuse patient.[facility] the event this information is protected by the Federal Confidentiality of Alcohol and Drug Abuse Patient Records regulations: The Federal rules restrict any use of the information to criminally investigate or prosecute any alcohol or drug abuse patient.[facility] the event this information is protected by the Federal Confidentiality of Alcohol and Drug Abuse Patient Records regulations: The Federal rules restrict any use of the information to criminally investigate or prosecute any alcohol or drug abuse patient.[facility] FOR RECORDS PERTAINING TO PATIENTS WHO ARE OR HAVE BEEN ENROLLED IN A CHEMICAL DEPENDENCY/SUBSTANCEABUSE PROGRAM, SOME INFORMATION MAY BE OMITTED. This clinical summary was aggregated from multiple sources. Caution should be exercised in using it in the provision of clinical care. This summary normalizes information from multiple sources, and as a consequence, information in this document may materially change the coding, format and clinical context of patient data. In addition, data may be omitted in some cases. CLINICAL DECISIONS SHOULD BE BASED ON THE PRIMARY CLINICAL RECORDS. [facility]. provides no warranty or guarantee of the accuracy or completeness of information in this document.
[2023-09-09 13:01] LABS: Alanine Aminotransferase 30 U/L (16-63); Albumin Globulin Ratio 0.6; Albumin Level 2.4 g/dL (3.4-5.0); Alkaline Phosphatase 135 U/L (46-116); Anion Gap 12.8; Aspartate Amino Transferase 21 U/L (15-37); BUN Creatinine Ratio 31.8; Bilirubin Total 0.4 mg/dL (0.2-1.0); Carbon Dioxide 27.2 mmol/L (21.0-32.0); Chloride 104 mmol/L (98-107); Estimated GFR (African America >60 (>=60); Estimated GFR (Non-African Ame >60 (>=60); Globulin 3.7 g/dL; Glucose 85 mg/dL (74-106); Hematocrit 29.3 % (42.0-54.0); Hemoglobin 9.4 g/dL (14.0-18.0); Mean Corpuscular HGB Conc 32.1 g/dL (29.9-35.2); Mean Corpuscular Hemoglobin 29.2 pg (25.9-34.0); Mean Platelet Volume 12.6 fL (9.5-13.5); Phosphorus 4.1 mg/dL (2.6-4.7); Platelet Count 186 10^3/uL (150-450); Red Blood Count 3.22 10^6/uL (4.70-6.10); Red Cell Distribution Width 13.1 % (11.0-15.0); Sodium 140 mmol/L (136-145); Total Protein 6.1 g/dL (6.4-8.2); Triglycerides 54 mg/dL (<=150); White Blood Count 8.5 10^3/uL (4.0-11.0)
[2023-09-09 14:43] LABS: Band Neutrophils Absolute 0.2 10^3/uL (0.0-0.3); Eosinophils Absolute Manual 0.17 10^3/uL (0.00-0.70); Lymphocytes Absolute Manual 0.85 10^3/uL (1.20-3.80); Monocytes Absolute Manual 0.76 10^3/uL (0.30-0.80); Segmented Neut Absolute Manual 6.54 10^3/uL (1.4-6.5)
== END 2023-09-09 12:20 | disposition home or self-care (01) ==
LOC: LAB 12:19
PROVIDERS: PCP Family Medicine
DX: E63.9 Nutritional deficiency, unspecified (principal)
CPT/HCPCS: 36415; 80053; 83735; 84100; 84478; 85027

== ENCOUNTER 2023-09-15 11:48 | Outpatient (REF) | payer BC, SELFPAY ==
--- OUTSIDE RECORDS SUMMARY | 2023-09-15 12:00 | XMS_ITS | CCD ---
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 Rene Cannon [facility] Unava ilable Arnel Madsen Attending Unavailable Arnel Madsen Referring Unavailable Dr. Rene Cannon [facility] Unava ilArnel Loredo Attending Unavailable Rene Cannon Unavailable Unavailable Unavailable EmanuelChantal Unavailable MD Rene Cannon Primary Care Provider DO Jean Paul Gutiérrez Emergency Provider MD Gela Eller Admit Provider MD Gela Eller Attending Provider MD Elsi Aziz Other Provider MD Niyah Imad Other Provider Unavailable Primary Care Provider Unavailabl e RENE CANNON Attending Unavailable RENE CANNON Attending Unavailable RENE CANNON Attending Unavailable Rene Cannon MD Primary Care Provider Asaad, Imad Unavailable Joselito Madsen Admitting Unavailable Joselito Madsen Attending Unavailable Rene Cannon Primary Care Unavailable Joselito Madsen Admitting Unavailable Joselito Madsen Attending Unavailable Rene Cannon Primary Care Unavailable Rene Cannon Primary Care Unavailable Noeskgaylae, Gela Admitting Unavailable Veronae, Gela Attending Unavailable Jose A Calzada Consulting Unavailable Nohemy Linder Consulting Unavailable BOLIVAR DEAL Consulting Unavailable RENE CANNON [facility] Unavailab le NAFFOUSILVANO, SAMER A Attending Unavailable NAFFOBHAVANA, SAMER A Admitting Unavailable ARISTEO, SAMER A Admitting Unavailable RENE CANNON [facility] Care Unavailab le NAFFOUJE, SAMER A Attending Unavailable NAFFOUSILVANO, SAMER A Referring Unavailable NAFFOBHAVANA, SAMER A Attending Unavailable RENE CANNON [facility] Unavailab le NAFFOUJE, SAMER A Attending Unavailable RENE CANNON [facility] Unavailab le ASAAD, IMAD Referring Unavailable Medications Current Medications Medication Drug Class(es) [...] Start: 10-24-2021 take 1 capsule by mo prh once daily in the evening dicyclomine (BENTYL) [...] Test Name Value Interpretation Reference Range Facility [facility] 09-10-2023 [facility] Telephone ([id number]) -- AISHA JULIEN ([id number]) 1955 M Date Time Provider Department 09/10/23 [place] [id number] During your visit today, we recorded the following information about you: Sylvia Bueno 09/10/2023 2:20 PM Signed Mayra called from [facility]. She need a current medication list faxed to [phone]. If you have any questions she can be reached at [phone]. Thank you! Jessie Zamora RN 09/11/2023 10:01 AM Signed Hospital discharge medication list faxed 09/10/23 to [facility]. Allergies As of Date: 09/10/2023 (No Known Allergies) Date Reviewed: 09/05/2023 Reviewed by: Guerline Peralta, LUCILLE - Fully Assessed Reason for Visit: current medication list [Other] Prescriptions as of 09/11/2023 - potassium (POTASSIMIN ORAL) Take by mouth. [...] FOR VOMITING FOR UP TO 7 DAYS Problem List As Of Date 09/10/2023 Noted Resolved Failure to thrive in adult [R62.7] 08/07/2023 Severe protein-calorie malnutrition (HCC) [E43] 08/08/2023 Pre-op evaluation [Z01.818] 08/08/2023 Primary hypertension [I10] 08/08/2023 Therapeutic drug monitoring [Z51.81] 08/08/2023 Feeding difficulties [R63.30] 08/08/2023 On total parenteral nutrition (TPN) [Z78.9] 08/08/2023 Near syncope [R55] 08/15/2023 Generalized weakness [R53.1] 08/15/2023 Convulsions (HCC) [R56.9] 08/16/2023 Vasovagal syncope [R55] 08/16/2023 Dehydration [E86.0] 08/28/2023 09/05/2023 Gastric outlet obstruction [K31.1] 09/01/2023 Encounter Status:Closed by JESSIE ZAMORA on 09/11/23 Normal [facility] Albumin SerPl-mCncon 024 Albumin [Mass/Vol] 2.9 g/dL Low 3.9-4.9 [facility] Comment on above: Order Comment: Speci men Type: BLOOD SPECIMENOrdering Facility: [facility] Address: [place] [address] Performed By: #### 1 751-7, 54356-1, , 2776-08 ####[facility] LABORATORYCLIA [id number] [place] [address] [place] Basic metabolic 2000 panelon 09-05-2023 Anion gap [Moles/Vol] 10 mmol/L Normal 9-18 [facility] Comment on above: Order Comment: Speci men Type: BLOOD SPECIMENOrdering Facility: [facility] Address: [address] [facility] [place] [address] Performed By: #### 1 751-7, 72294-2, , 2776-08 ####[facility] LABORATORYCLIA [id number] [place] [address] [place] Calcium [Mass/Vol] 8.2 mg/dL Low 8.5-10.2 [facility] Comment on above: Order Comment: Speci men Type: BLOOD SPECIMENOrdering Facility: [facility] Address: [place] [address] Performed By: #### 1 751-7, 59829-1, , 2776-08 ####GE[facility] LABORATORYCLIA [id number] [place] [address] [place] Chloride [Moles/Vol] 107 mmol/L High 97-105 [facility] Comment on above: Order Comment: Speci men Type: BLOOD SPECIMENOrdering Facility: [facility] Address: [place] [address] Performed By: #### 1 751-7, 62207-9, , 2776-08 ####[facility] LABORATORYCLIA [id number] [place] [address] [place] CO2 [Moles/Vol] 24 mmol/L Normal 22-30 [facility] Comment on above: Order Comment: Speci men Type: BLOOD SPECIMENOrdering Facility: [facility] Address: [address] [place] [address] Performed By: #### 1 751-7, 00459-6, , 2776-08 ####[facility] LABORATORYCLIA [id number] [place] [address] [place] Creatinine [Mass/Vol] 0.83 mg/dL Normal 0.73-1.22 [facility] Comment on above: Order Comment: Speci men Type: BLOOD SPECIMENOrdering Facility: [facility] Address: [address] [place] [address] Performed By: #### 1 751-7, 91292-3, , 2776-08 ####[facility] LABORATORYCLIA [id number] [place] [address] [place] Creatinine and Glomerular filtration rate.predicted panel (S/P/Bld) 95 mL/min/1.73m??? Normal >=60 [facility] Comment on above: Order Comment: Miai men Type: BLOOD SPECIMENOrdering Facility: [facility] Address: [address] [place] [address] Result Comment: Bailey mated Glomerular Filtration Rate [...] actual GFR. Performed By: #### 1 751-7, 75846-5, , 2776-08 ####[facility] LABORATORYCLIA [id number] [place] [address] [place] Glucose [Mass/Vol] 75 mg/dL Normal 74-99 [facility] Comment on above: Order Comment: Miai men Type: BLOOD SPECIMENOrdering Facility: [facility] Address: [address] [place] [address] Result Comment: The [place] Diabetes Association (ADA) provides guidance for cutoff [...] Standards of Medical Care in Diabetes 2016, [place] [employer] Association. Diabetes Care. 2016.39(Suppl 1). Performed By: #### 1 751-7, 86611-1, , 2776-08 ####[facility] LABORATORYCLIA [id number] [place] [address] [place] Potassium [Moles/Vol] 4.4 mmol/L Normal 3.7-5.1 [facility] Comment on above: Order Comment: Arben suarez Type: BLOOD SPECIMENOrdering Facility: [facility] Address: [address] [place] [address] Performed By: #### 1 751-7, 75991-0, , 2776-08 ####[facility] LABORATORYCLIA [id number] [place] [address] [place] Sodium [Moles/Vol] 141 mmol/L Normal 136-144 [facility] Comment on above: Order Comment: Arben suarez Type: BLOOD SPECIMENOrdering Facility: [facility] Address: [address] [place] [address] Performed By: #### 1 751-7, 13001-4, , 2776-08 ####[facility] LABORATORYCLIA [id number] [place] [address] [place] Urea nitrogen [Mass/Vol] 25 mg/dL High 9-24 [facility] Comment on above: Order Comment: Miai men Type: BLOOD SPECIMENOrdering Facility: [facility] Address: [address] [place] [address] Performed By: #### 1 751-7, 14186-4, , 2776- ####[facility] LABORATORYCLIA [id number] [place] [address] [place] CASE MANAGEMon 09-05-2023 CASE MANAGEM Normal [facility] CASE MANAGEM Normal [facility] CASE MANAGEM Normal [facility] CASE MANAGEM Normal [facility] CNDSon 09-05-2023 CNDS Normal [facility] Magnesium SerPl-mCncon 09-05 Magnesium [Mass/Vol] 2.2 mg/dL Normal 1.7-2.3 [facility] Comment on above: Order Comment: Speci men Type: BLOOD SPECIMENOrdering Facility: [facility] Address: [address] [facility] [place] [id number] Performed By: #### 1 751-7, 59866-4, , 2776-08 ####[facility] LABORATORYCLIA [id number] [place] [address] [place] NUTRITIONon 09-05-2023 NUTRITION Normal [facility] Phosphate SerPl-mCncon 09-05 Phosphate [Mass/Vol] 4.6 mg/dL Normal 2.7-4.8 [facility] Comment on above: Order Comment: Speci men Type: BLOOD SPECIMENOrdering Facility: [facility] Address: [place] [address] Performed By: #### 1 751-7, 37784-3, , 2776-08 ####[facility] LABORATORYCLIA [id number] [place] [address] [place] Albumin SerPl-mCncon 024 Albumin [Mass/Vol] 2.4 g/dL Low 3.9-4.9 [facility] Comment on above: Order Comment: Speci men Type: BLOOD SPECIMENOrdering Facility: [facility] Address: [place] [address] Performed By: #### 1 751-7, 26301-7, , 2776-08 ####[facility] LABORATORYCLIA [id number] [place] [address] [place] Basic metabolic 2000 panelon 09-04-2023 Anion gap [Moles/Vol] 6 mmol/L Low 9-18 [facility] Comment on above: Order Comment: Speci men Type: BLOOD SPECIMENOrdering Facility: [facility] Address: [place] [address] Performed By: #### 1 751-7, 69560-6, , 2776-08 ####[facility] LABORATORYCLIA [id number] [place] [address] [place] Calcium [Mass/Vol] 8.0 mg/dL Low 8.5-10.2 [facility] Comment on above: Order Comment: Speci men Type: BLOOD SPECIMENOrdering Facility: [facility] Address: [address] [place] [address] Performed By: #### 1 751-7, 47678-9, , 2776-08 ####[facility] LABORATORYCLIA [id number] [place] [address] [place] Chloride [Moles/Vol] 103 mmol/L Normal 97-105 [facility] Comment on above: Order Comment: Speci men Type: BLOOD SPECIMENOrdering Facility: [facility] Address: [address] [place] [address] Performed By: #### 1 751-7, 33711-3, , 2776-08 ####[facility] LABORATORYCLIA [id number] [place] [address] [place] CO2 [Moles/Vol] 30 mmol/L Normal 22-30 [facility] Comment on above: Order Comment: Speci men Type: BLOOD SPECIMENOrdering Facility: [facility] Address: [address] [place] [address] Performed By: #### 1 751-7, 19258-8, , 2776-08 ####[facility] LABORATORYCLIA [id number] [place] [address] [place] Creatinine [Mass/Vol] 0.80 mg/dL Normal 0.73-1.22 [facility] Comment on above: Order Comment: Speci men Type: BLOOD SPECIMENOrdering Facility: [facility] Address: [address] [place] [address] Performed By: #### 1 751-7, 79031-4, 34078-5, 2776-08 ####[facility] LABORATORYCLIA [id number] [place] [address] [place] Creatinine and Glomerular filtration rate.predicted panel (S/P/Bld) 96 mL/min/1.73m??? Normal >=60 [facility] Comment on above: Order Comment: Arben suarez Type: BLOOD SPECIMENOrdering Facility: [facility] Address: [address] [place] [address] Result Comment: Bailey mated Glomerular Filtration Rate [...] actual GFR. Performed By: #### 1 751-7, 76571-7, , 2776-08 ####[facility] LABORATORYCLIA [id number] [place] [address] [place] Glucose [Mass/Vol] 109 mg/dL High 74-99 [facility] Comment on above: Order Comment: Arben suarez Type: BLOOD SPECIMENOrdering Facility: [facility] Address: [address] [place] [address] Result Comment: The [place] Diabetes Association (ADA) provides guidance for cutoff [...] Standards of Medical Care in Diabetes 2016, [place] [employer]. Diabetes Care. 2016.39(Suppl 1). Performed By: #### 1 751-7, 56702-4, 73642-1, 2776- ####[facility] LABORATORYCLIA [id number] [place] [address] [place] Potassium [Moles/Vol] 4.3 mmol/L Normal 3.7-5.1 [facility] Comment on above: Order Comment: Speci men Type: BLOOD SPECIMENOrdering Facility: [facility] Address: [address] [place] [address] Performed By: #### 1 751-7, 22056-7, , 2776- ####[facility] LABORATORYCLIA [id number] [place] [address] [place] Sodium [Moles/Vol] 139 mmol/L Normal 136-144 [facility] Comment on above: Order Comment: Speci men Type: BLOOD SPECIMENOrdering Facility: [facility] Address: [address] [place] [address] Performed By: #### 1 751-7, 36672-3, , 2776- ####[facility] LABORATORYCLIA [id number] [place] [address] [place] Urea nitrogen [Mass/Vol] 21 mg/dL Normal 9-24 [facility] Comment on above: Order Comment: Speci men Type: BLOOD SPECIMENOrdering Facility: [facility] Address: [address] [place] [address] Performed By: #### 1 751-7, 28757-7, , 2776-08 ####[facility] LABORATORYCLIA [id number] [place] [address] [place] CASE MANAGEMon 09-04-2023 CASE MANAGEM Normal [facility] Magnesium SerPl-mCncon 09-04 Magnesium [Mass/Vol] 2.1 mg/dL Normal 1.7-2.3 [facility] Comment on above: Order Comment: Speci men Type: BLOOD SPECIMENOrdering Facility: [facility] Address: [address] [place] [address] Performed By: #### 1 751-7, 15678-3, , 2776-08 ####GE[facility] LABORATORYCLIA [id number] [place] [address] [place] NUTRITIONon 09-04-2023 NUTRITION Normal [facility]ate [facility] Phosphate [Mass/Vol] 3.6 mg/dL Normal 2.7-4.8 [facility] Comment on above: Order Comment: Speci men Type: BLOOD SPECIMENOrdering Facility: [facility] Address: [address] [place] [address] Performed By: #### 1 751-7, 76341-2, , 2776-08 ####GE[facility] LABORATORYCLIA [id number] [place] [address] [place] Albumin SerP[facility] 024 Albumin [Mass/Vol] 2.7 g/dL Low 3.9-4.9 [facility] Comment on above: Order Comment: Speci men Type: BLOOD SPECIMENOrdering Facility: [facility] Address: [address] [place] [address] Performed By: #### 1 751-7, 52544-6, , 2776-08 ####[facility] LABORATORYCLIA [id number] [place] [address] [place] Basic metabolic 2000 panelon 09-03-2023 Anion gap [Moles/Vol] 9 mmol/L Normal 9-18 [facility] Comment on above: Order Comment: Speci men Type: BLOOD SPECIMENOrdering Facility: [facility] Address: [address] [place] [id number] Performed By: #### 1 751-7, 08165-0, , 2776-08 ####GE[facility] LABORATORYCLIA [id number] [place] [address] [place] Calcium [Mass/Vol] 8.1 mg/dL Low 8.5-10.2 [facility] Comment on above: Order Comment: Speci men Type: BLOOD SPECIMENOrdering Facility: [facility] Address: [address] [place] [address] Performed By: #### 1 751-7, 81780-5, 03286-9, 7- ####[facility] LABORATORYCLIA [id number] [place] [address] [place] Chloride [Moles/Vol] 97 mmol/L Normal 97-105 [facility] Comment on above: Order Comment: Speci men Type: BLOOD SPECIMENOrdering Facility: [facility] Address: [address] [place] [address] Performed By: #### 1 751-7, 02658-6, 68799-0, 2776- ####[facility] LABORATORYCLIA [id number] [place] [address] [place] CO2 [Moles/Vol] 31 mmol/L High 22-30 [facility] Comment on above: Order Comment: Speci men Type: BLOOD SPECIMENOrdering Facility: [facility] Address: [address] [place] [address] Performed By: #### 1 751-7, 01286-8, , 2776- ####[facility] LABORATORYCLIA [id number] [place] [address] [place] Creatinine [Mass/Vol] 0.84 mg/dL Normal 0.73-1.22 [facility] Comment on above: Order Comment: Speci men Type: BLOOD SPECIMENOrdering Facility: [facility] Address: [address] [place] [address] Performed By: #### 1 751-7, 52697-7, , 2776-08 ####[facility] LABORATORYCLIA [id number] [place] [address] [place] Creatinine and Glomerular filtration rate.predicted panel (S/P/Bld) 95 mL/min/1.73m??? Normal >=60 [facility] Comment on above: Order Comment: Speci men Type: BLOOD SPECIMENOrdering Facility: [facility] Address: [address] [place] [address] Result Comment: Bailey mated Glomerular Filtration Rate [...] actual GFR. Performed By: #### 1 751-7, 12202-3, , 2776-08 ####[facility] LABORATORYCLIA [id number] [place] [address] [place] Glucose [Mass/Vol] 91 mg/dL Normal 74-99 [facility] Comment on above: Order Comment: Arben suarez Type: BLOOD SPECIMENOrdering Facility: [facility] Address: [address] [place] [address] Result Comment: The [place] Diabetes Association (ADA) provides guidance for cutoff [...] Standards of Medical Care in Diabetes 2016, [place] [employer]. Diabetes Care. 2016.39(Suppl 1). Performed By: #### 1 751-7, 12577-5, , 2776-08 ####[facility] LABORATORYCLIA [id number] [place] [address] [place] Potassium [Moles/Vol] 4.1 mmol/L Normal 3.7-5.1 [facility] Comment on above: Order Comment: Arben suarez Type: BLOOD SPECIMENOrdering Facility: [facility] Address: [address] [place] [address] Performed By: #### 1 751-7, 94146-3, , 2776-08 ####[facility] LABORATORYCLIA [id number] [place] [address] [place] Sodium [Moles/Vol] 137 mmol/L Normal 136-144 [facility] Comment on above: Order Comment: Speci men Type: BLOOD SPECIMENOrdering Facility: [facility] Address: [address] [place] [id number] Performed By: #### 1 751-7, 42837-9, , 2776- ####[facility] LABORATORYCLIA [id number] [address] [place] Urea nitrogen [Mass/Vol] 21 mg/dL Normal 9-24 [facility] Comment on above: Order Comment: Speci men Type: BLOOD SPECIMENOrdering Facility: [facility] Address: [place] [address] Performed By: #### 1 751-7, 67966-9, , 2776-08 ####[facility] LABORATORYCLIA [id number] [address] CASE MANAGEMon 09-03-2023 CASE MANAGEM Normal [facility] Magnesium [facility] Magnesium [Mass/Vol] 2.0 mg/dL Normal 1.7-2.3 [facility] Comment on above: Order Comment: Speci men Type: BLOOD SPECIMENOrdering Facility: [facility] Address: [address] [place] [id number] Performed By: #### 1 751-7, 80113-1, , 2776-08 ####[facility] LABORATORYCLIA [id number] [place] [address] [facility] [place] NUTRITIONon 09-03-2023 NUTRITION Normal [facility] Phosphate SerPl-mCncon 09-03 Phosphate [Mass/Vol] 3.7 mg/dL Normal 2.7-4.8 [facility] Comment on above: Order Comment: Speci men Type: BLOOD SPECIMENOrdering Facility: [facility] Address: [address] [place] [id number] Performed By: #### 1 751-7, 93066-8, , 2776- ####[facility] LABORATORYCLIA [id number] [place] [address] [place] ALLIED HEALTHon 09-02-2023 ALLIED HEALTH Normal [facility] Albumin SerPl-mCncon 024 Albumin [Mass/Vol] 2.8 g/dL Low 3.9-4.9 [facility] Comment on above: Order Comment: Speci men Type: BLOOD SPECIMENOrdering Facility: [facility] Address: [address] [place] [address] Performed By: #### 1 751-7, 47739-3, , 2571-03 ####[facility] LABORATORYCLIA [id number] [place] [address] [place] Basic metabolic 2000 panelon 09-02-2023 Anion gap [Moles/Vol] 6 mmol/L Low 9-18 [facility] Comment on above: Order Comment: Speci men Type: BLOOD SPECIMENOrdering Facility: [facility] Address: [place] [address] Performed By: #### 1 751-7, 85400-3, , 2571-03 ####[facility] LABORATORYCLIA [id number] [place] [address] [place] Calcium [Mass/Vol] 8.3 mg/dL Low 8.5-10.2 [facility] Comment on above: Order Comment: Speci men Type: BLOOD SPECIMENOrdering Facility: [facility] Address: [address] [place] [address] Performed By: #### 1 751-7, 51619-4, , 2571-03 ####[facility] LABORATORYCLIA [id number] [place] [address] [place] Chloride [Moles/Vol] 100 mmol/L Normal 97-105 [facility] Comment on above: Order Comment: Speci men Type: BLOOD SPECIMENOrdering Facility: [facility] Address: [address] [place] [address] Performed By: #### 1 751-7, 80569-2, , 2571-03 ####[facility] LABORATORYCLIA [id number] [place] [address] [place] CO2 [Moles/Vol] 34 mmol/L High 22-30 [facility] Comment on above: Order Comment: Arben suarez Type: BLOOD SPECIMENOrdering Facility: [facility] Address: [address] [place] [address] Performed By: #### 1 751-7, 45988-7, 31290-7, 2571-03 ####[facility] LABORATORYCLIA [id number] [place] [address] [place] Creatinine [Mass/Vol] 0.88 mg/dL Normal 0.73-1.22 [facility] Comment on above: Order Comment: Arben suarez Type: BLOOD SPECIMENOrdering Facility: [facility] Address: [address] [place] [address] Performed By: #### 1 751-7, 21896-3, , 2571-03 ####[facility] LABORATORYCLIA [id number] [place] [address] [place] Creatinine and Glomerular filtration rate.predicted panel (S/P/Bld) 94 mL/min/1.73m??? Normal >=60 [facility] Comment on above: Order Comment: Arben suarez Type: BLOOD SPECIMENOrdering Facility: [facility] Address: [address] [place] [address] Result Comment: Bailey mated Glomerular Filtration Rate [...] actual GFR. Performed By: #### 1 751-7, 88564-6, 46560-1, 2571-03 ####[facility] LABORATORYCLIA [id number] [place] [id number] [place] Glucose [Mass/Vol] 95 mg/dL Normal 74-99 [facility] Comment on above: Order Comment: Miai daniela Type: BLOOD SPECIMENOrdering Facility: [facility] Address: [address] [id number] Result Comment: The [place] [employer] Association (ADA) provides guidance for cutoff [...] Standards of Medical Care in Diabetes 2016, [place] [employer]. Diabetes Care. 2016.39(Suppl 1). Performed By: #### 1 751-7, 23195-8, , 2571-03 ####[facility] LABORATORYCLIA [id number] [place] [address] [place] Potassium [Moles/Vol] 3.4 mmol/L Low 3.7-5.1 [facility] Comment on above: Order Comment: Speci men Type: BLOOD SPECIMENOrdering Facility: [facility] Address: [address] [place] [address] Performed By: #### 1 751-7, 27204-1, , 2571-03 ####[facility] LABORATORYCLIA [id number] [place] [address] [place] Sodium [Moles/Vol] 140 mmol/L Normal 136-144 [facility] Comment on above: Order Comment: Speci men Type: BLOOD SPECIMENOrdering Facility: [facility] Address: [address] [place] [address] Performed By: #### 1 751-7, 81485-6, , 2571-03 ####[facility] LABORATORYCLIA [id number] [place] [address] [place] Urea nitrogen [Mass/Vol] 24 mg/dL Normal 9-24 [facility] Comment on above: Order Comment: Speci men Type: BLOOD SPECIMENOrdering Facility: [facility] Address: [address] [place] [address] Performed By: #### 1 751-7, 30608-0, 14356-6, 2571-8 ####[facility] LABORATORYCLIA [id number] [address] STATES [facility] CBC panel Auto (Bld)on 09-02 Erythrocyte distribution width (RBC) [Ratio] 12.4 % Normal 11.5-15.0 [facility] Comment on above: Order Comment: Speci men Type: BLOOD SPECIMENOrdering Facility: [facility] Address: [address] [place] [address] Performed By: #### 5 8410-2 ####[facility] LABORATORYCLIA [id number] [address] Hematocrit (Bld) [Volume fraction] 29.2 % Low 39.0-51.0 [facility] Comment on above: Order Comment: Speci men Type: BLOOD SPECIMENOrdering Facility: [facility] Address: [address] [place] [address] Performed By: #### 5 8410-2 ####[facility] LABORATORYCLIA [id number] [address] [place] Hemoglobin (Bld) [Mass/Vol] 9.8 g/dL Low 13.0-17.0 [facility] Comment on above: Order Comment: Speci men Type: BLOOD SPECIMENOrdering Facility: [facility] Address: [address] [place] [address] Performed By: #### 5 8410-2 ####[facility] LABORATORYCLIA [id number] [address] [place] MCH (RBC) [Entitic mass] 29.3 pg Normal 26.0-34.0 [facility] Comment on above: Order Comment: Speci men Type: BLOOD SPECIMENOrdering Facility: [facility] Address: [address] [place] [address] Performed By: #### 5 8410-2 ####[facility] LABORATORYCLIA [id number] [place] [address] [place] MCHC (RBC) [Mass/Vol] 33.6 g/dL Normal 30.5-36.0 [facility] Comment on above: Order Comment: Speci men Type: BLOOD SPECIMENOrdering Facility: [facility] Address: [address] [place] [address] Performed By: #### 5 8410-2 ####[facility] LABORATORYCLIA [id number] [place] [address] [place] MCV (RBC) [Entitic vol] 87.4 fL Normal 80.0-100.0 [facility] Comment on above: Order Comment: Speci men Type: BLOOD SPECIMENOrdering Facility: [facility] Address: [address] [place] [address] Performed By: #### 5 8410-2 ####[facility] LABORATORYCLIA [id number] [place] [address] [place] Nucleated RBC (Bld) [#/Vol] 10*3/uL Normal <0.01 [facility] Comment on above: Order Comment: Speci men Type: BLOOD SPECIMENOrdering Facility: [facility] Address: [address] [place] [address] Performed By: #### 5 8410-2 ####[facility] LABORATORYCLIA [id number] [place] [address] [place] Platelet mean volume (Bld) [Entitic vol] 11.2 fL Normal 9.0-12.7 [facility] Comment on above: Order Comment: Speci men Type: BLOOD SPECIMENOrdering Facility: [facility] Address: [address] [place] [address] Performed By: #### 5 8410-2 ####[facility] LABORATORYCLIA [id number] [place] [address] [place] Platelets (Bld) [#/Vol] 229 10*3/uL Normal 150-400 [facility] Comment on above: Order Comment: Speci men Type: BLOOD SPECIMENOrdering Facility: [facility] Address: [address] [place] [address] Performed By: #### 5 8410-2 ####[facility] LABORATORYCLIA [id number] [place] [address] [place] RBC (Bld) [#/Vol] 3.34 10*6/uL Low 4.20-6.00 [facility] Comment on above: Order Comment: Speci men Type: BLOOD SPECIMENOrdering Facility: [facility] Address: [address] [place] [address] Performed By: #### 5 8410-2 ####[facility] LABORATORYCLIA [id number] [place] [address] [place] WBC (Bld) [#/Vol] 5.51 10*3/uL Normal 3.70-11.00 [facility] Comment on above: Order Comment: Speci men Type: BLOOD SPECIMENOrdering Facility: [facility] Address: [address] [place] [address] Performed By: #### 5 8410-2 ####[facility] LABORATORYCLIA [id number] [place] [address] [place] PANCREAS W IVCONon 2023 CT PANCREAS W IVCON Normal [facility] Magnesium [Mass/Vol] 1.9 mg/dL Normal 1.7-2.3 [facility] Comment on above: Order Comment: Speci men Type: BLOOD SPECIMENOrdering Facility: [facility] Address: [address] [place] [address] Performed By: #### 1 751-7, 68544-8, 13878-8, 2571-8 ####[facility] LABORATORYCLIA [id number] [place] [address] [place] NUTRITIONon 09-02-2023 NUTRITION Normal [facility] Phosphate SerPl-mCncon 09-02 Phosphate [Mass/Vol] 2.5 mg/dL Low 2.7-4.8 [facility] Comment on above: Order Comment: Speci men Type: BLOOD SPECIMENOrdering Facility: [facility] Address: [address] [place] [address] Performed By: #### 2 777-1 ####[facility] LABORATORYCLIA [id number] [place] [address] [place] Trigl SerPl-mCncon Triglyceride [Mass/Vol] 70 mg/dL Normal <150 [facility] Comment on above: Order Comment: Speci men Type: BLOOD SPECIMENOrdering Facility: [facility] Address: [place] [address] Result Comment: <150 mg/dL, Normal 150-199 mg/dL, Borderline high 200-499 mg/dL, High>499 mg/dL, Very highReference:1. National Cholesterol Education Program ATP III Guideline At-A-Glance Quick Desk Reference: National Heart, Lung, and Blood [place]. National Institutes of Health. 2001: NIH Publication No. 01-3305. Performed By: #### 1 751-7, 61691-8, 37746-9, 8 ####[facility] LABORATORYCLIA [id number] [place] [address] [place] Triglyceride [Mass/Vol]on FASTING TIME n/a Normal [facility] Comment on above: Order Comment: Speci men Type: BLOOD SPECIMENOrdering Facility: [facility] Address: [place] [address] Performed By: #### 1 751-7, 15606-3, , 2570-8 ####[facility] LABORATORYCLIA [id number] [place] [address] [place] Basic metabolic 2000 panelon 09-01-2023 Anion gap [Moles/Vol] 10 mmol/L Normal 9-18 [facility] Comment on above: Order Comment: Speci men Type: BLOOD SPECIMENOrdering Facility: [facility] Address: [place] [address] Performed By: #### 1 9123-9, 99852-5, 2777-1, 55406-8 ####[facility] LABORATORYCLIA [id number] [place] [address] [place] Calcium [Mass/Vol] 8.4 mg/dL Low 8.5-10.2 [facility] Comment on above: Order Comment: Speci men Type: BLOOD SPECIMENOrdering Facility: [facility] Address: [address] [place] [address] Performed By: #### 1 9123-9, 46051-7, 277-1, 13765-2 ####[facility] LABORATORYCLIA [id number] [place] [address] [place] Chloride [Moles/Vol] 102 mmol/L Normal 97-105 [facility] Comment on above: Order Comment: Speci men Type: BLOOD SPECIMENOrdering Facility: [facility] Address: [address] [place] [address] Performed By: #### 1 9123-9, 37586-6, 2776-, 97184-6 ####[facility] LABORATORYCLIA [id number] [place] [address] [place] CO2 [Moles/Vol] 29 mmol/L Normal 22-30 [facility] Comment on above: Order Comment: Speci men Type: BLOOD SPECIMENOrdering Facility: [facility] Address: [address] [place] [address] Performed By: #### 1 9123-9, 64533-9, 2776-, 12801-5 ####[facility] LABORATORYCLIA [id number] [place] [address] [place] Creatinine [Mass/Vol] 0.93 mg/dL Normal 0.73-1.22 [facility] Comment on above: Order Comment: Speci men Type: BLOOD SPECIMENOrdering Facility: [facility] Address: [address] [place] [address] Performed By: #### 1 9123-9, 00965-9, 277-1, 64527-3 ####[facility] LABORATORYCLIA [id number] [place] [address] [place] Creatinine and Glomerular filtration rate.predicted panel (S/P/Bld) 89 mL/min/1.73m??? Normal >=60 [facility] Comment on above: Order Comment: Speci men Type: BLOOD SPECIMENOrdering Facility: [facility] Address: [address] [place] [address] Result Comment: Bailey mated Glomerular Filtration Rate [...] actual GFR. Performed By: #### 1 9123-9, 58557-8, 2776-, 49314-9 ####[facility] LABORATORYCLIA [id number] [place] [address] [place] Glucose [Mass/Vol] 110 mg/dL High 74-99 [facility] Comment on above: Order Comment: Arben suarez Type: BLOOD SPECIMENOrdering Facility: [facility] Address: [address] [place] [address] Result Comment: The [place] Diabetes Association (ADA) provides guidance for cutoff [...] Standards of Medical Care in Diabetes 2016, [place] [employer]. Diabetes Care. 2016.39(Suppl 1). Performed By: #### 1 9123-9, 22479-7, 277-, 28843-9 ####[facility] LABORATORYCLIA [id number] [place] [address] [place] Potassium [Moles/Vol] 3.3 mmol/L Low 3.7-5.1 [facility] Comment on above: Order Comment: Arben suarez Type: BLOOD SPECIMENOrdering Facility: [facility] Address: [address] [place] [address] Performed By: #### 1 9123-9, 89255-0, 2777-1, 25336-8 ####[facility] LABORATORYCLIA [id number] [place] [address] [place] Sodium [Moles/Vol] 141 mmol/L Normal 136-144 [facility] Comment on above: Order Comment: Speci men Type: BLOOD SPECIMENOrdering Facility: [facility] Address: [address] [place] [address] Performed By: #### 1 9123-9, 18233-6, 2777-, 54290-0 ####[facility] LABORATORYCLIA [id number] [place] [address] [place] Urea nitrogen [Mass/Vol] 27 mg/dL High 9-24 [facility] Comment on above: Order Comment: Speci men Type: BLOOD SPECIMENOrdering Facility: [facility] Address: [address] [place] [address] Performed By: #### 1 9123-9, 49354-8, 2777-, 93568-6 ####[facility] LABORATORYCLIA [id number] [place] [address] [place] CBC W Auto Differential pane l (Bld)on 09-01-2023 Basophils (Bld) [#/Vol] 0.04 10*3/uL Normal <0.11 [facility] Comment on above: Order Comment: Speci men Type: BLOOD SPECIMENOrdering Facility: [facility] Address: [address] [place] [address] Performed By: #### 5 7021-8 ####[facility] LABORATORYCLIA [id number] [place] [address] [place] Basophils/100 WBC (Bld) 0.8 % Normal [facility] Comment on above: Order Comment: Speci men Type: BLOOD SPECIMENOrdering Facility: [facility] Address: [address] [place] [address] Performed By: #### 5 7021-8 ####[facility] LABORATORYCLIA [id number] [address] [place] Differential cell count method Nom (Bld) Auto Normal [facility] Comment on above: Order Comment: Speci men Type: BLOOD SPECIMENOrdering Facility: [facility] Address: [address] [place] [address] Performed By: #### 5 7021-8 ####[facility] LABORATORYCLIA [id number] [place] [address] [place] Eosinophils (Bld) [#/Vol] 0.17 10*3/uL Normal <0.46 [facility] Comment on above: Order Comment: Speci men Type: BLOOD SPECIMENOrdering Facility: [facility] Address: [address] [place] [address] Performed By: #### 5 7021-8 ####[facility] LABORATORYCLIA [id number] [address] Eosinophils/100 WBC (Bld) 3.5 % Normal [facility] Comment on above: Order Comment: Speci men Type: BLOOD SPECIMENOrdering Facility: [facility] Address: [address] [place] [address] Performed By: #### 5 7021-8 ####[facility] LABORATORYCLIA [id number] [address] [place] Erythrocyte distribution width (RBC) [Ratio] 12.5 % Normal 11.5-15.0 [facility] Comment on above: Order Comment: Speci men Type: BLOOD SPECIMENOrdering Facility: [facility] Address: [address] [place] [address] Performed By: #### 5 7021-8 ####[facility] LABORATORYCLIA [id number] [place] [address] [place] Hematocrit (Bld) [Volume fraction] 28.8 % Low 39.0-51.0 [facility] Comment on above: Order Comment: Speci men Type: BLOOD SPECIMENOrdering Facility: [facility] Address: [address] [place] [address] Performed By: #### 5 7021-8 ####[facility] LABORATORYCLIA [id number] [place] [address] [place] Hemoglobin (Bld) [Mass/Vol] 9.9 g/dL Low 13.0-17.0 [facility] Comment on above: Order Comment: Speci men Type: BLOOD SPECIMENOrdering Facility: [facility] Address: [address] [place] [address] Performed By: #### 5 7021-8 ####[facility] LABORATORYCLIA [id number] [place] [address] [place] Immature granulocytes (Bld) [#/Vol] 10*3/uL Normal <0.10 [facility] Comment on above: Order Comment: Speci men Type: BLOOD SPECIMENOrdering Facility: [facility] Address: [address] [place] [address] Performed By: #### 5 7021-8 ####[facility] LABORATORYCLIA [id number] [address] [place] Immature granulocytes/100 WBC (Bld) 0.4 % Normal [facility] Comment on above: Order Comment: Speci men Type: BLOOD SPECIMENOrdering Facility: [facility] Address: [address] [place] [address] Performed By: #### 5 7021-8 ####[facility] LABORATORYCLIA [id number] [place] [address] [place] Lymphocytes (Bld) [#/Vol] 1.10 10*3/uL Normal 1.00-4.00 [facility] Comment on above: Order Comment: Speci men Type: BLOOD SPECIMENOrdering Facility: [facility] Address: [address] [place] [address] Performed By: #### 5 7021-8 ####[facility] LABORATORYCLIA [id number] [place] [address] [place] Lymphocytes/100 WBC (Bld) 22.7 % Normal [facility] Comment on above: Order Comment: Speci men Type: BLOOD SPECIMENOrdering Facility: [facility] Address: [address] [place] [address] Performed By: #### 5 7021-8 ####[facility] LABORATORYCLIA [id number] [place] [address] [place] MCH (RBC) [Entitic mass] 29.6 pg Normal 26.0-34.0 [facility] Comment on above: Order Comment: Speci men Type: BLOOD SPECIMENOrdering Facility: [facility] Address: [address] [place] [address] Performed By: #### 5 7021-8 ####[facility] LABORATORYCLIA [id number] [place] [address] [place] MCHC (RBC) [Mass/Vol] 34.4 g/dL Normal 30.5-36.0 [facility] Comment on above: Order Comment: Speci men Type: BLOOD SPECIMENOrdering Facility: [facility] Address: [address] [place] [address] Performed By: #### 5 7021-8 ####[facility] LABORATORYCLIA [id number] [place] [address] [place] MCV (RBC) [Entitic vol] 86.0 fL Normal 80.0-100.0 [facility] Comment on above: Order Comment: Speci men Type: BLOOD SPECIMENOrdering Facility: [facility] Address: [address] [place] [address] Performed By: #### 5 7021-8 ####[facility] LABORATORYCLIA [id number] [place] [address] [place] Monocytes (Bld) [#/Vol] 0.86 10*3/uL Normal <0.87 [facility] Comment on above: Order Comment: Speci men Type: BLOOD SPECIMENOrdering Facility: [facility] Address: [address] [place] [address] Performed By: #### 5 7021-8 ####[facility] LABORATORYCLIA [id number] [place] [address] [place] Monocytes/100 WBC (Bld) 17.8 % Normal [facility] Comment on above: Order Comment: Speci men Type: BLOOD SPECIMENOrdering Facility: [facility] Address: [address] [place] [address] Performed By: #### 5 7021-8 ####[facility] LABORATORYCLIA [id number] [place] [address] [place] Neutrophils (Bld) [#/Vol] 2.65 10*3/uL Normal 1.45-7.50 [facility] Comment on above: Order Comment: Speci men Type: BLOOD SPECIMENOrdering Facility: [facility] Address: [address] [place] [address] Performed By: #### 5 7021-8 ####[facility] LABORATORYCLIA [id number] [place] [address] [place] Neutrophils/100 WBC (Bld) 54.8 % Normal [facility] Comment on above: Order Comment: Speci men Type: BLOOD SPECIMENOrdering Facility: [facility] Address: [address] [place] [address] Performed By: #### 5 7021-8 ####[facility] LABORATORYCLIA [id number] [place] [address] [place] Nucleated RBC (Bld) [#/Vol] 10*3/uL Normal <0.01 [facility] Comment on above: Order Comment: Speci men Type: BLOOD SPECIMENOrdering Facility: [facility] Address: [address] [place] [address] Performed By: #### 5 7021-8 ####[facility] LABORATORYCLIA [id number] [place] [address] [place] Nucleated RBC/100 WBC (Bld) [Ratio] 0.0 /100 WBC Normal [facility] Comment on above: Order Comment: Speci men Type: BLOOD SPECIMENOrdering Facility: [facility] Address: [address] [place] [address] Performed By: #### 5 7021-8 ####[facility] LABORATORYCLIA [id number] [place] [address] [place] Platelet mean volume (Bld) [Entitic vol] 11.3 fL Normal 9.0-12.7 [facility] Comment on above: Order Comment: Speci men Type: BLOOD SPECIMENOrdering Facility: [facility] Address: [address] [place] [address] Performed By: #### 5 7021-8 ####[facility] LABORATORYCLIA [id number] [place] [address] [place] Platelets (Bld) [#/Vol] 238 10*3/uL Normal 150-400 [facility] Comment on above: Order Comment: Speci men Type: BLOOD SPECIMENOrdering Facility: [facility] Address: [address] [place] [address] Performed By: #### 5 7021-8 ####[facility] LABORATORYCLIA [id number] [place] [address] [place] RBC (Bld) [#/Vol] 3.35 10*6/uL Low 4.20-6.00 [facility] Comment on above: Order Comment: Speci men Type: BLOOD SPECIMENOrdering Facility: [facility] Address: [address] [place] [address] Performed By: #### 5 7021-8 ####[facility] LABORATORYCLIA [id number] [place] [address] [place] WBC (Bld) [#/Vol] 4.84 10*3/uL Normal 3.70-11.00 [facility] Comment on above: Order Comment: Speci men Type: BLOOD SPECIMENOrdering Facility: [facility] Address: [address] [place] [address] Performed By: #### 5 7021-8 ####[facility] LABORATORYCLIA [id number] [place] [address] [place] Hepatic function 2000 panelo n 09-01-2023 Albumin [Mass/Vol] 2.8 g/dL Low 3.9-4.9 [facility] Comment on above: Order Comment: Speci men Type: BLOOD SPECIMENOrdering Facility: [facility] Address: [address] [place] [address] Performed By: #### 1 9123-9, 15181-2, 2777-1, 08701-2 ####[facility] LABORATORYCLIA [id number] [place] [address] [place] ALP [Catalytic activity/Vol] 107 U/L Normal 38-113 [facility] Comment on above: Order Comment: Speci men Type: BLOOD SPECIMENOrdering Facility: [facility] Address: [address] [place] [address] Performed By: #### 1 9123-9, 92306-7, 7-1, 38524-7 ####[facility] LABORATORYCLIA [id number] [place] [address] [place] ALT [Catalytic activity/Vol] 21 U/L Normal 10-54 [facility] Comment on above: Order Comment: Speci men Type: BLOOD SPECIMENOrdering Facility: [facility] Address: [address] [place] [address] Performed By: #### 1 9123-9, 86765-6, 2776-1, 20743-3 ####[facility] LABORATORYCLIA [id number] [address] [place] AST [Catalytic activity/Vol] 14 U/L Normal 14-40 [facility] Comment on above: Order Comment: Speci men Type: BLOOD SPECIMENOrdering Facility: [facility] Address: [address] [place] [address] Performed By: #### 1 9123-9, 88379-1, 2776-1, 49751-7 ####[facility] LABORATORYCLIA [id number] [place] [address] [place] Bilirubin [Mass/Vol] 0.4 mg/dL Normal 0.2-1.3 [facility] Comment on above: Order Comment: Speci men Type: BLOOD SPECIMENOrdering Facility: [facility] Address: [address] [place] [address] Performed By: #### 1 9123-9, 09624-6, 7-1, 19833-9 ####[facility] LABORATORYCLIA [id number] [place] [address] [place] [facility] [place] Bilirubin.conjugated [Mass/Vol] mg/dL Normal <0.2 [facility] Comment on above: Order Comment: Speci men Type: BLOOD SPECIMENOrdering Facility: [facility] Address: [address] [place] [address] Performed By: #### 1 9123-9, 10976-4, 2777-1, 79464-9 ####[facility] LABORATORYCLIA [id number] [place] [id number] [place] Protein [Mass/Vol] 5.4 g/dL Low 6.3-8.0 [facility] Comment on above: Order Comment: Speci men Type: BLOOD SPECIMENOrdering Facility: [facility] Address: [place] [address] Performed By: #### 1 9123-9, 24790-2, 2776-, 86348-6 ####[facility] LABORATORYCLIA [id number] [place] [id number] [place] Magnesium SerPl-mCncon 09-01 Magnesium [Mass/Vol] 1.8 mg/dL Normal 1.7-2.3 [facility] Comment on above: Order Comment: Speci men Type: BLOOD SPECIMENOrdering Facility: [facility] Address: [place] [address] Performed By: #### 1 9123-9, 25455-5, 2776-08, 36163-7 ####[facility] LABORATORYCLIA [id number] [place] [id number] [place] NURSING PROGon 09-01-2023 NURSING PROG Normal [facility] NUTRITIONon 09-01-2023 NUTRITION Normal [facility] Phosphate SerPl-mCncon 09-01 Phosphate [Mass/Vol] 2.8 mg/dL Normal 2.7-4.8 [facility] Comment on above: Order Comment: Speci men Type: BLOOD SPECIMENOrdering Facility: [facility] Address: [place] [address] Performed By: #### 1 9123-9, 27729-3, 277-, 79856-5 ####[facility] LABORATORYCLIA [id number] [place] [address] [place] Albumin SerPl-mCncon 024 Albumin [Mass/Vol] 2.9 g/dL Low 3.9-4.9 [facility] Comment on above: Order Comment: Speci men Type: BLOOD SPECIMENOrdering Facility: [facility] Address: [address] [place] [id number] Performed By: #### 2 777-1, 31538-6, 1751-02, ####[facility] LABORATORYCLIA [id number] [place] [address] [place] Basic metabolic 2000 panelon 08-31-2023 Anion gap [Moles/Vol] 10 mmol/L Normal 9-18 [facility] Comment on above: Order Comment: Speci men Type: BLOOD SPECIMENOrdering Facility: [facility] Address: [address] [place] [id number] Performed By: #### 2 777-1, 47380-8, 1751-02, ####[facility] LABORATORYCLIA [id number] [place] [address] [place] Calcium [Mass/Vol] 8.3 mg/dL Low 8.5-10.2 [facility] Comment on above: Order Comment: Speci men Type: BLOOD SPECIMENOrdering Facility: [facility] Address: [address] [place] [id number] Performed By: #### 2 777-1, 32817-0, 1751-02, ####[facility] LABORATORYCLIA [id number] [place] [address] [place] Chloride [Moles/Vol] 101 mmol/L Normal 97-105 [facility] Comment on above: Order Comment: Speci men Type: BLOOD SPECIMENOrdering Facility: [facility] Address: [address] [place] [address] Performed By: #### 2 777-1, 82688-8, 1751-02, ####[facility] LABORATORYCLIA [id number] [place] [address] [place] CO2 [Moles/Vol] 23 mmol/L Normal 22-30 [facility] Comment on above: Order Comment: Speci men Type: BLOOD SPECIMENOrdering Facility: [facility] Address: [address] [place] [address] Performed By: #### 2 777-1, 90321-4, 1751-02, ####[facility] LABORATORYCLIA [id number] [place] [address] [place] Creatinine [Mass/Vol] 1.22 mg/dL Normal 0.73-1.22 [facility] Comment on above: Order Comment: Arben suarez Type: BLOOD SPECIMENOrdering Facility: [facility] Address: [address] [place] [address] Performed By: #### 2 777-1, 72040-5, 1751-02, ####[facility] LABORATORYCLIA [id number] [place] [address] [place] Creatinine and Glomerular filtration rate.predicted panel (S/P/Bld) 65 mL/min/1.73m??? Normal >=60 [facility] Comment on above: Order Comment: [facility] Type: BLOOD SPECIMENOrdering Facility: [facility] Address: [address] [place] [address] Result Comment: Bailey mated Glomerular Filtration Rate [...] actual GFR. Performed By: #### 2 777-1, 32386-3, 1751-02, ####[facility] LABORATORYCLIA [id number] [place] [address] [place] Glucose [Mass/Vol] 100 mg/dL High 74-99 [facility] Comment on above: Order Comment: Arben [facility] Type: BLOOD SPECIMENOrdering Facility: [facility] Address: [address] [place] [address] Result Comment: The [place] [employer] (ADA) provides guidance for cutoff [...] Standards of Medical Care in Diabetes 2016, [place] [employer]. Diabetes Care. 2016.39(Suppl 1). Performed By: #### 2 777-1, 77116-5, 1751-02, ####[facility] LABORATORYCLIA [id number] [place] [address] [place] Potassium [Moles/Vol] 3.5 mmol/L Low 3.7-5.1 [facility] Comment on above: Order Comment: Arben suarez Type: BLOOD SPECIMENOrdering Facility: [facility] Address: [address] [place] [address] Performed By: #### 2 777-1, 70664-5, 1751-02, ####[facility] LABORATORYCLIA [id number] [place] [address] [place] Sodium [Moles/Vol] 134 mmol/L Low 136-144 [facility] Comment on above: Order Comment: Arben suarez Type: BLOOD SPECIMENOrdering Facility: [facility] Address: [address] [place] [address] Performed By: #### 2 777-1, 49885-6, 1751-02, ####[facility] LABORATORYCLIA [id number] [place] [address] [place] Urea nitrogen [Mass/Vol] 39 mg/dL High 9-24 [facility] Comment on above: Order Comment: Arben suarez Type: BLOOD SPECIMENOrdering Facility: [facility] Address: [address] [place] [address] Performed By: #### 2 777-1, 12364-7, 1751-02, ####[facility] LABORATORYCLIA [id number] [place] [address] [place] CASE MANAGEMon 08-31-2023 CASE MANAGEM Normal [facility] Magnesium SerPl-mCncon 08-31 Magnesium [Mass/Vol] 1.7 mg/dL Normal 1.7-2.3 [facility] Comment on above: Order Comment: Speci men Type: BLOOD SPECIMENOrdering Facility: [facility] Address: [address] [place] [address] Performed By: #### 2 777-1, 43248-6, 1751-02, ####[facility] LABORATORYCLIA [id number] [place] [address] [place] Phosphate SerPl-mCncon 08-31 Phosphate [Mass/Vol] 2.6 mg/dL Low 2.7-4.8 [facility] Comment on above: Order Comment: Speci men Type: BLOOD SPECIMENOrdering Facility: [facility] Address: [address] [place] [address] Performed By: #### 2 777-1, 77805-8, 1751-02, ####[facility] LABORATORYCLIA [id number] [place] [address] [place] Albumin SerPl-mCncon 024 Albumin [Mass/Vol] 3.1 g/dL Low 3.9-4.9 [facility] Comment on above: Order Comment: Speci men Type: BLOOD SPECIMENOrdering Facility: [facility] Address: [address] [place] [address] Performed By: #### 2 4321-2, 75779-8, 1751-02, 2776-08 ####[facility] LABORATORYCLIA [id number] [place] [address] [place] Basic metabolic 2000 panelon 08-30-2023 Anion gap [Moles/Vol] 11 mmol/L Normal 9-18 [facility] Comment on above: Order Comment: Speci men Type: BLOOD SPECIMENOrdering Facility: [facility] Address: [address] [place] [address] Performed By: #### 2 4321-2, 56818-1, 1751-02, 2776-08 ####[facility] LABORATORYCLIA [id number] [place] [address] [place] Calcium [Mass/Vol] 8.1 mg/dL Low 8.5-10.2 [facility] Comment on above: Order Comment: Speci men Type: BLOOD SPECIMENOrdering Facility: [facility] Address: [address] [place] [address] Performed By: #### 2 4321-2, , 1751-02, 2776-08 ####[facility] LABORATORYCLIA [id number] [place] [address] [place] Chloride [Moles/Vol] 106 mmol/L High 97-105 [facility] Comment on above: Order Comment: Speci men Type: BLOOD SPECIMENOrdering Facility: [facility] Address: [address] [place] [address] Performed By: #### 2 4321-2, , 1751-02, 2776-08 ####[facility] LABORATORYCLIA [id number] [place] [address] [place] CO2 [Moles/Vol] 17 mmol/L Low 22-30 [facility] Comment on above: Order Comment: Speci men Type: BLOOD SPECIMENOrdering Facility: [facility] Address: [address] [place] [address] Performed By: #### 2 4321-2, , 1751-02, 2776-08 ####[facility] LABORATORYCLIA [id number] [place] [address] [place] Creatinine [Mass/Vol] 1.39 mg/dL High 0.73-1.22 [facility] Comment on above: Order Comment: Speci men Type: BLOOD SPECIMENOrdering Facility: [facility] Address: [address] [place] [address] Performed By: #### 2 4321-2, , 1751-02, 2776-08 ####[facility] LABORATORYCLIA [id number] [place] [address] [place] Creatinine and Glomerular filtration rate.predicted panel (S/P/Bld) 55 mL/min/1.73m??? Low >=60 [facility] Comment on above: Order Comment: Arben suarez Type: BLOOD SPECIMENOrdering Facility: [facility] Address: [address] [place] [address] Result Comment: Bailey mated Glomerular Filtration Rate [...] actual GFR. Performed By: #### 2 4321-2, 03971-1, 1751-02, 2776-08 ####[facility] LABORATORYCLIA [id number] [place] [address] [place] Glucose [Mass/Vol] 107 mg/dL High 74-99 [facility] Comment on above: Order Comment: Arben suarez Type: BLOOD SPECIMENOrdering Facility: [facility] Address: [address] [place] [address] Result Comment: The [place] Diabetes [employer] (ADA) provides guidance for cutoff [...] Standards of Medical Care in Diabetes 2016, [place] [employer]. Diabetes Care. 2016.39(Suppl 1). Performed By: #### 2 4321-2, 29325-8, 1751-02, 2776-08 ####[facility] LABORATORYCLIA [id number] [place] [address] [place] Potassium [Moles/Vol] 3.6 mmol/L Low 3.7-5.1 [facility] Comment on above: Order Comment: Speci men Type: BLOOD SPECIMENOrdering Facility: [facility] Address: [address] [place] [address] Performed By: #### 2 4321-2, , 1751-02, 2776-08 ####[facility] LABORATORYCLIA [id number] [place] [address] [place] Sodium [Moles/Vol] 134 mmol/L Low 136-144 [facility] Comment on above: Order Comment: Speci men Type: BLOOD SPECIMENOrdering Facility: [facility] Address: [address] [place] [address] Performed By: #### 2 4321-2, , 1751-02, 2776-08 ####[facility] LABORATORYCLIA [id number] [place] [address] [place] Urea nitrogen [Mass/Vol] 46 mg/dL High 9-24 [facility] Comment on above: Order Comment: Speci men Type: BLOOD SPECIMENOrdering Facility: [facility] Address: [address] [place] [address] Performed By: #### 2 4321-2, , 1751-02, 2776-08 ####[facility] LABORATORYCLIA [id number] [place] [address] [place] CBC panel Auto (Bld)on 08-30 Erythrocyte distribution width (RBC) [Ratio] 12.4 % Normal 11.5-15.0 [facility] Comment on above: Order Comment: Speci men Type: BLOOD SPECIMENOrdering Facility: [facility] Address: [address] [place] [address] Performed By: #### 5 8410-2 ####[facility] LABORATORYCLIA [id number] [place] [address] [place] Hematocrit (Bld) [Volume fraction] 32.1 % Low 39.0-51.0 [facility] Comment on above: Order Comment: Speci men Type: BLOOD SPECIMENOrdering Facility: [facility] Address: [address] [place] [address] Performed By: #### 5 8410-2 ####[facility] LABORATORYCLIA [id number] [place] [address] [place] Hemoglobin (Bld) [Mass/Vol] 11.0 g/dL Low 13.0-17.0 [facility] Comment on above: Order Comment: Speci men Type: BLOOD SPECIMENOrdering Facility: [facility] Address: [address] [place] [address] Performed By: #### 5 8410-2 ####[facility] LABORATORYCLIA [id number] [place] [address] [place] MCH (RBC) [Entitic mass] 29.3 pg Normal 26.0-34.0 [facility] Comment on above: Order Comment: Speci men Type: BLOOD SPECIMENOrdering Facility: [facility] Address: [address] [place] [address] Performed By: #### 5 8410-2 ####[facility] LABORATORYCLIA [id number] [address] [place] MCHC (RBC) [Mass/Vol] 34.3 g/dL Normal 30.5-36.0 [facility] Comment on above: Order Comment: Speci men Type: BLOOD SPECIMENOrdering Facility: [facility] Address: [address] [place] [address] Performed By: #### 5 8410-2 ####[facility] LABORATORYCLIA [id number] [address] [place] MCV (RBC) [Entitic vol] 85.6 fL Normal 80.0-100.0 [facility] Comment on above: Order Comment: Speci men Type: BLOOD SPECIMENOrdering Facility: [facility] Address: [address] [place] [address] Performed By: #### 5 8410-2 ####[facility] LABORATORYCLIA [id number] [address] [place] Nucleated RBC (Bld) [#/Vol] 10*3/uL Normal <0.01 [facility] Comment on above: Order Comment: Speci men Type: BLOOD SPECIMENOrdering Facility: [facility] Address: [address] [place] [address] Performed By: #### 5 8410-2 ####[facility] LABORATORYCLIA [id number] [place] [address] [place] Platelet mean volume (Bld) [Entitic vol] 10.6 fL Normal 9.0-12.7 [facility] Comment on above: Order Comment: Speci men Type: BLOOD SPECIMENOrdering Facility: [facility] Address: [address] [place] [address] Performed By: #### 5 8410-2 ####[facility] LABORATORYCLIA [id number] [place] [id number] [place] Platelets (Bld) [#/Vol] 306 10*3/uL Normal 150-400 [facility] Comment on above: Order Comment: Speci men Type: BLOOD SPECIMENOrdering Facility: [facility] Address: [address] [place] [address] Performed By: #### 5 8410-2 ####[facility] LABORATORYCLIA [id number] [place] [address] [place] RBC (Bld) [#/Vol] 3.75 10*6/uL Low 4.20-6.00 [facility] Comment on above: Order Comment: Speci men Type: BLOOD SPECIMENOrdering Facility: [facility] Address: [address] [place] [address] Performed By: #### 5 8410-2 ####[facility] LABORATORYCLIA [id number] [place] [address] [place] WBC (Bld) [#/Vol] 6.84 10*3/uL Normal 3.70-11.00 [facility] Comment on above: Order Comment: Speci men Type: BLOOD SPECIMENOrdering Facility: [facility] Address: [address] [place] [address] Performed By: #### 5 8410-2 ####[facility] LABORATORYCLIA [id number] [place] [address] [place] CONSULT PROGon 08-30-2023 CONSULT PROG Normal [facility] Lactate (Bld) [Moles/Vol]on 08-30-2023 Lactate [Moles/Vol] 0.6 mmol/L Normal 0.5-2.2 [facility] Comment on above: Order Comment: Speci men Type: BLOOD SPECIMENOrdering Facility: [facility] Address: [place] [address] Performed By: #### 3 2693-4 ####[facility] LABORATORYCLIA [id number] [place] [address] [place] Magnesium SerPl-mCncon 08-30 Magnesium [Mass/Vol] 2.0 mg/dL Normal 1.7-2.3 [facility] Comment on above: Order Comment: Speci men Type: BLOOD SPECIMENOrdering Facility: [facility] Address: [place] [address] Performed By: #### 2 4321-2, 37816-2, 1751-02, 2776-1 ####[facility] LABORATORYCLIA [id number] [place] [address] [place] NURSING PROGon 08-30-2023 NURSING PROG Normal [facility] NUTRITIONon 08-30-2023 NUTRITION Normal [facility] Phosphate SerPl-mCncon 08-30 Phosphate [Mass/Vol] 3.1 mg/dL Normal 2.7-4.8 [facility] Comment on above: Order Comment: Speci men Type: BLOOD SPECIMENOrdering Facility: [facility] Address: [place] [address] Performed By: #### 2 4321-2, 61195-0, 1751-02, 2776-1 ####[facility] LABORATORYCLIA [id number] [place] [address] [place] Basic metabolic 2000 panelon 08-29-2023 Anion gap [Moles/Vol] 18 mmol/L Normal 9-18 [facility] Comment on above: Order Comment: Speci men Type: BLOOD SPECIMENOrdering Facility: [facility] Address: [place] [address] Performed By: #### 2 4321-2, 277-1, 15906-8, 40750-5 ####[facility] LABORATORYCLIA [id number] [place] [address] [place] Calcium [Mass/Vol] 9.0 mg/dL Normal 8.5-10.2 [facility] Comment on above: Order Comment: Speci men Type: BLOOD SPECIMENOrdering Facility: [facility] Address: [address] [place] [address] Performed By: #### 2 4321-2, 2777-1, 58260-7, ####[facility] LABORATORYCLIA [id number] [place] [address] [place] Chloride [Moles/Vol] 107 mmol/L High 97-105 [facility] Comment on above: Order Comment: Speci men Type: BLOOD SPECIMENOrdering Facility: [facility] Address: [address] [place] [address] Performed By: #### 2 4321-2, 2777-1, 30120-8, ####[facility] LABORATORYCLIA [id number] [place] [address] [place] CO2 [Moles/Vol] 8 mmol/L Low 22-30 [facility] Comment on above: Order Comment: Speci men Type: BLOOD SPECIMENOrdering Facility: [facility] Address: [address] [place] [address] Performed By: #### 2 4321-2, 2777-1, 10839-8, ####[facility] LABORATORYCLIA [id number] [place] [address] [place] Creatinine [Mass/Vol] 1.98 mg/dL High 0.73-1.22 [facility] Comment on above: Order Comment: Speci men Type: BLOOD SPECIMENOrdering Facility: [facility] Address: [address] [place] [address] Performed By: #### 2 4321-2, 2777-1, 30237-7, ####[facility] LABORATORYCLIA [id number] [place] [address] [place] Creatinine and Glomerular filtration rate.predicted panel (S/P/Bld) 36 mL/min/1.73m??? Low >=60 [facility] Comment on above: Order Comment: Arben suarez Type: BLOOD SPECIMENOrdering Facility: [facility] Address: [address] [place] [address] Result Comment: Bailey mated Glomerular Filtration Rate [...] GFR. Performed By: #### 2 4321-2, 2777-1, 72670-3, 23821-0 ####[facility] LABORATORYCLIA [id number] [place] [address] [place] Glucose [Mass/Vol] 134 mg/dL High 74-99 [facility] Comment on above: Order Comment: Arben suarez Type: BLOOD SPECIMENOrdering Facility: [facility] Address: [address] [place] [address] Result Comment: The [place] [employer] (ADA) provides guidance for cutoff [...] Standards of Medical Care in Diabetes 2016, [place] [employer]. Diabetes Care. 2016.39(Suppl 1). Performed By: #### 2 4321-2, 2777-1, 96868-8, 44119-5 ####[facility] LABORATORYCLIA [id number] [place] [address] [place] Potassium [Moles/Vol] 4.9 mmol/L Normal 3.7-5.1 [facility] Comment on above: Order Comment: Speci men Type: BLOOD SPECIMENOrdering Facility: [facility] Address: [address] [place] [address] Performed By: #### 2 4321-2, 2777-1, 02113-6, ####[facility] LABORATORYCLIA [id number] [place] [address] [place] Sodium [Moles/Vol] 133 mmol/L Low 136-144 [facility] Comment on above: Order Comment: Speci men Type: BLOOD SPECIMENOrdering Facility: [facility] Address: [address] [place] [address] Performed By: #### 2 4321-2, 2777-1, 66593-9, ####[facility] LABORATORYCLIA [id number] [place] [address] [place] Urea nitrogen [Mass/Vol] 68 mg/dL High 9-24 [facility] Comment on above: Order Comment: Speci men Type: BLOOD SPECIMENOrdering Facility: [facility] Address: [address] [place] [address] Performed By: #### 2 4321-2, 2777-1, 62837-8, ####[facility] LABORATORYCLIA [id number] [place] [address] [place] CBC panel Auto (Bld)on 08-29 Erythrocyte distribution width (RBC) [Ratio] 12.2 % Normal 11.5-15.0 [facility] Comment on above: Order Comment: Speci men Type: BLOOD SPECIMENOrdering Facility: [facility] Address: [address] [place] [address] Performed By: #### 5 8410-2 ####[facility] LABORATORYCLIA [id number] [place] [id number] [place] Hematocrit (Bld) [Volume fraction] 37.9 % Low 39.0-51.0 [facility] Comment on above: Order Comment: Speci men Type: BLOOD SPECIMENOrdering Facility: [facility] Address: [address] [place] [address] Performed By: #### 5 8410-2 ####[facility] LABORATORYCLIA [id number] [place] [address] [place] Hemoglobin (Bld) [Mass/Vol] 12.9 g/dL Low 13.0-17.0 [facility] Comment on above: Order Comment: Speci men Type: BLOOD SPECIMENOrdering Facility: [facility] Address: [address] [place] [address] Performed By: #### 5 8410-2 ####[facility] LABORATORYCLIA [id number] [place] [address] [place] MCH (RBC) [Entitic mass] 29.7 pg Normal 26.0-34.0 [facility] Comment on above: Order Comment: Speci men Type: BLOOD SPECIMENOrdering Facility: [facility] Address: [address] [place] [address] Performed By: #### 5 8410-2 ####[facility] LABORATORYCLIA [id number] [place] [address] [place] MCHC (RBC) [Mass/Vol] 34.0 g/dL Normal 30.5-36.0 [facility] Comment on above: Order Comment: Speci men Type: BLOOD SPECIMENOrdering Facility: [facility] Address: [address] [place] [address] Performed By: #### 5 8410-2 ####[facility] LABORATORYCLIA [id number] [place] [address] [place] MCV (RBC) [Entitic vol] 87.3 fL Normal 80.0-100.0 [facility] Comment on above: Order Comment: Speci men Type: BLOOD SPECIMENOrdering Facility: [facility] Address: [address] [place] [address] Performed By: #### 5 8410-2 ####[facility] LABORATORYCLIA [id number] [address] [place] Nucleated RBC (Bld) [#/Vol] 10*3/uL Normal <0.01 [facility] Comment on above: Order Comment: Speci men Type: BLOOD SPECIMENOrdering Facility: [facility] Address: [address] [place] [address] Performed By: #### 5 8410-2 ####[facility] LABORATORYCLIA [id number] [place] [id number] [place] Platelet mean volume (Bld) [Entitic vol] 10.5 fL Normal 9.0-12.7 [facility] Comment on above: Order Comment: Speci men Type: BLOOD SPECIMENOrdering Facility: [facility] Address: [address] [place] [address] Performed By: #### 5 8410-2 ####[facility] LABORATORYCLIA [id number] [place] [id number] [place] Platelets (Bld) [#/Vol] 356 10*3/uL Normal 150-400 [facility] Comment on above: Order Comment: Speci men Type: BLOOD SPECIMENOrdering Facility: [facility] Address: [address] [place] [address] Performed By: #### 5 8410-2 ####[facility]ORATORYCLIA [id number] [place] [address] [place] RBC (Bld) [#/Vol] 4.34 10*6/uL Normal 4.20-6.00 [facility] Comment on above: Order Comment: Speci men Type: BLOOD SPECIMENOrdering Facility: [facility] Address: [address] [place] [address] Performed By: #### 5 8410-2 ####[facility] LABORATORYCLIA [id number] [place] [place] [id number] [place] WBC (Bld) [#/Vol] 6.11 10*3/uL Normal 3.70-11.00 [facility] Comment on above: Order Comment: Speci men Type: BLOOD SPECIMENOrdering Facility: [facility] Address: [address] [place] [address] Performed By: #### 5 8410-2 ####[facility] LABORATORYCLIA [id number] [address] [place] HIGH SENSITIVITY TROPONIN T (THIRD) 3 HRS AFTER INITIALon 08-29-2023 Troponin T.cardiac High sensitivity method [Mass/Vol] 32 ng/L High <12 [facility] Comment on above: Order Comment: Arben suarez Type: BLOOD SPECIMENOrdering Facility: [facility] Address: [address] [place] [address] Result Comment: When assessing risk for acute [...] 30 day MACE. Performed By: #### L [id number] ####[facility] LABORATORYCLIA [id number] [place] [id number] [place] Iron and Iron binding capaci ty panelon 08-29-2023 Iron [Mass/Vol] 170 ug/dL Normal 41-186 [facility] Comment on above: Order Comment: Arben suarez Type: BLOOD SPECIMENOrdering Facility: [facility] Address: [place] [address] Performed By: #### 2 4321-2, 2777-1, 61366-2, 82889-6 ####[facility] LABORATORYCLIA [id number] [place] [id number] [place] Iron binding capacity [Mass/Vol] 331 ug/dL Normal 232-386 [facility] Comment on above: Order Comment: Speci men Type: BLOOD SPECIMENOrdering Facility: [facility] Address: [place] [address] Performed By: #### 2 4321-2, 2777-1, 17454-9, 20457-7 ####[facility] LABORATORYCLIA [id number] [place] [id number] [place] Iron/TIBC [Molar ratio] 51.4 % Normal 20.0-55.0 [facility] Comment on above: Order Comment: Speci men Type: BLOOD SPECIMENOrdering Facility: [facility] Address: [place] [address] Performed By: #### 2 4321-2, 2777-1, 82229-5, ####[facility] LABORATORYCLIA [id number] [place] [address] [place] Lactate (Bld) [Moles/Vol]on 08-29-2023 Lactate [Moles/Vol] 1.1 mmol/L Normal 0.5-2.2 [facility] Comment on above: Order Comment: Speci men Type: BLOOD SPECIMENOrdering Facility: [facility] Address: [address] [place] [address] Performed By: #### 3 2693-4 ####[facility] LABORATORYCLIA [id number] [place] [id number] [place] Magnesium SerPl-mCncon 08-29 Magnesium [Mass/Vol] 2.6 mg/dL High 1.7-2.3 [facility] Comment on above: Order Comment: Speci men Type: BLOOD SPECIMENOrdering Facility: [facility] Address: [address] [address] Performed By: #### 2 4321-2, 2777-1, 96217-8, ####[facility] LABORATORYCLIA [id number] [place] [id number] [place] NURSING PROGon 08-29-2023 NURSING PROG Normal [facility] NUTRITIONon 08-29-2023 NUTRITION Normal [facility] NUTRITION Normal [facility] PT EDon 08-29-2023 PT ED Normal [facility] Phosphate SerPl-mCncon 08-29 Phosphate [Mass/Vol] 4.7 mg/dL Normal 2.7-4.8 [facility] Comment on above: Order Comment: Speci men Type: BLOOD SPECIMENOrdering Facility: [facility] Address: [address] [place] [address] Performed By: #### 2 4321-2, 2777-1, 44645-3, ####[facility] LABORATORYCLIA [id number] [place] [id number] [place] Prealb SerPl-mCncon 08-29-19 Prealbumin [Mass/Vol] 26 mg/dL Normal 17-36 [facility] Comment on above: Order Comment: Speci men Type: BLOOD SPECIMENOrdering Facility: [facility] Address: [address] [place] [address] Performed By: #### 1 4338-8, 303-6 ####[facility] LABCLIA [id number] [place] [address] [place] Transferrin SerPl-mCncon Transferrin [Mass/Vol] 271 mg/dL Normal 200-360 [facility] Comment on above: Order Comment: Speci men Type: BLOOD SPECIMENOrdering Facility: [facility] Address: [address] [place] [address] Performed By: #### 1 4338-8, 6 ####[facility] LABCLIA [id number] [place] [address] [place] Urinalysis complete panel (U )on 08-29-2023 Bacteria LM.HPF (Urine sed) [#/Area] Rare Abnormal None Seen [facility] Comment on above: Order Comment: Speci men Type: URINE SPECIMENOrdering Facility: [facility] Address: [address] [place] [address] Performed By: #### 2 4356-8 ####[facility] LABORATORYCLIA [id number] [place] [address] [place] Bilirubin Ql (U) Negative Normal Negative [facility] Comment on above: Order Comment: Speci men Type: URINE SPECIMENOrdering Facility: [facility] Address: [address] [place] [address] Performed By: #### 2 4356-8 ####[facility] LABORATORYCLIA [id number] [place] [address] [place] Clarity (Unsp spec) Clear Normal Clear [facility] Comment on above: Order Comment: Speci men Type: URINE SPECIMENOrdering Facility: [facility] Address: [address] [place] [address] Performed By: #### 2 4356-8 ####[facility] LABORATORYCLIA [id number] [place] [address] [place] Color (U) Light Yellow Normal Yellow [facility] Comment on above: Order Comment: Speci men Type: URINE SPECIMENOrdering Facility: [facility] Address: [address] [place] [address] Performed By: #### 2 4356-8 ####[facility] LABORATORYCLIA [id number] [place] [address] [place] Glucose Test strip (U) [Mass/Vol] Negative Normal Trace, Negative [facility] Comment on above: Order Comment: Speci men Type: URINE SPECIMENOrdering Facility: [facility] Address: [address] [place] [address] Performed By: #### 2 4356-8 ####[facility] LABORATORYCLIA [id number] [place] [address] [place] Hemoglobin Ql (U) Negative Normal Negative, Trace [facility] Comment on above: Order Comment: Speci men Type: URINE SPECIMENOrdering Facility: [facility] Address: [address] [place] [address] Performed By: #### 2 4356-8 ####[facility] LABORATORYCLIA [id number] [address] [place] Ketones Ql (U) Negative Normal Negative, Trace [facility] Comment on above: Order Comment: Speci men Type: URINE SPECIMENOrdering Facility: [facility] Address: [address] [place] [address] Performed By: #### 2 4356-8 ####[facility] LABORATORYCLIA [id number] [address] [place] Leukocyte esterase Test strip Ql (U) Negative Normal Negative, 25 Angle/uL [facility] Comment on above: Order Comment: Speci men Type: URINE SPECIMENOrdering Facility: [facility] Address: [address] [place] [address] Performed By: #### 2 4356-8 ####[facility] LABORATORYCLIA [id number] [place] [address] [place] Nitrite Ql (U) Negative Normal Negative [facility] Comment on above: Order Comment: Speci men Type: URINE SPECIMENOrdering Facility: [facility] Address: [address] [place] [address] Performed By: #### 2 4356-8 ####[facility] LABORATORYCLIA [id number] [place] [address] [place] pH (U) 5.0 [pH] Normal 5.0-8.0 [facility] Comment on above: Order Comment: Speci men Type: URINE SPECIMENOrdering Facility: [facility] Address: [address] [place] [address] Performed By: #### 2 4356-8 ####[facility] LABORATORYCLIA [id number] [address] STATES [facility] Protein (U) [Mass/Vol] Trace Normal Trace, Negative [facility] Comment on above: Order Comment: Speci men Type: URINE SPECIMENOrdering Facility: [facility] Address: [address] [place] [address] Performed By: #### 2 4356-8 ####[facility] LABORATORYCLIA [id number] [place] [address] [place] RBC LM.HPF (Urine sed) [#/Area] 0-3 /HPF Normal 0-3 /HPF [facility] Comment on above: Order Comment: Speci men Type: URINE SPECIMENOrdering Facility: [facility] Address: [address] [place] [address] Performed By: #### 2 4356-8 ####[facility] LABORATORYCLIA [id number] [place] [id number] [place] Specific gravity (U) [Rel density] 1.013 Normal 1.005-1.03 0 [facility] Comment on above: Order Comment: Speci men Type: URINE SPECIMENOrdering Facility: [facility] Address: [address] [place] [address] Performed By: #### 2 4356-8 ####[facility] LABORATORYCLIA [id number] [place] [address] [place] URIC ACID CRYSTALS (UA) Moderate Abnormal None Seen [facility] Comment on above: Order Comment: Speci men Type: URINE SPECIMENOrdering Facility: [facility] Address: [address] [place] [address] Performed By: #### 2 4356-8 ####[facility] LABORATORYCLIA [id number] [address] [place] Urobilinogen Ql (U) Negative Normal Negative [facility] Comment on above: Order Comment: Speci men Type: URINE SPECIMENOrdering Facility: [facility] Address: [address] [place] [address] Performed By: #### 2 4356-8 ####[facility] LABORATORYCLIA [id number] [place] [address] [place] WBC LM.HPF (Urine sed) [#/Area] 0-5 /HPF Normal 0-5 /HPF [facility] Comment on above: Order Comment: Speci men Type: URINE SPECIMENOrdering Facility: [facility] Address: [address] [place] [address] Performed By: #### 2 4356-8 ####[facility] LABORATORYCLIA [id number] [place] [address] [place] ALLIED HEALTHon 08-28-2023 ALLIED HEALTH Normal [facility] ALLIED HEALTH Normal [facility] Bacteria Bld Culton 08-28-19 24 Bacteria identified Cx Nom (Bld) CULTURE, BLOOD: No growth 5 days Normal [facility] Comment on above: Performed By: #### 6 00-7 ####[facility] LABCLIA [id number] [place] [address] [place] CASE MGT INIT ASSESon 2023 CASE MGT INIT ASSES Normal [facility] CBC W Auto Differential pane l (Bld)on 08-28-2023 Basophils (Bld) [#/Vol] 0.03 10*3/uL Normal <0.11 [facility] Comment on above: Order Comment: Speci men Type: BLOOD SPECIMENOrdering Facility: [facility] Address: [address] [place] [address] Performed By: #### 5 7021-8 ####[facility] LABORATORYCLIA [id number] [place] [id number] [place] Basophils/100 WBC (Bld) 0.3 % Normal [facility] Comment on above: Order Comment: Speci men Type: BLOOD SPECIMENOrdering Facility: [facility] Address: [address] [place] [address] Performed By: #### 5 7021-8 ####[facility] LABORATORYCLIA [id number] [place] [address] [place] Differential cell count method Nom (Bld) Auto Normal [facility] Comment on above: Order Comment: Speci men Type: BLOOD SPECIMENOrdering Facility: [facility] Address: [address] [place] [address] Performed By: #### 5 7021-8 ####[facility] LABORATORYCLIA [id number] [place] [address] [place] Eosinophils (Bld) [#/Vol] 0.06 10*3/uL Normal <0.46 [facility] Comment on above: Order Comment: Speci men Type: BLOOD SPECIMENOrdering Facility: [facility] Address: [address] [place] [address] Performed By: #### 5 7021-8 ####[facility] LABORATORYCLIA [id number] [address] [place] Eosinophils/100 WBC (Bld) 0.6 % Normal [facility] Comment on above: Order Comment: Speci men Type: BLOOD SPECIMENOrdering Facility: [facility] Address: [address] [place] [address] Performed By: #### 5 7021-8 ####[facility] LABORATORYCLIA [id number] [place] [address] [place] Erythrocyte distribution width (RBC) [Ratio] 12.3 % Normal 11.5-15.0 [facility] Comment on above: Order Comment: Speci men Type: BLOOD SPECIMENOrdering Facility: [facility] Address: [address] [place] [address] Performed By: #### 5 7021-8 ####[facility] LABORATORYCLIA [id number] [place] [id number] [place] Hematocrit (Bld) [Volume fraction] 42.0 % Normal 39.0-51.0 [facility] Comment on above: Order Comment: Speci men Type: BLOOD SPECIMENOrdering Facility: [facility] Address: [address] [place] [address] Performed By: #### 5 7021-8 ####[facility] LABORATORYCLIA [id number] [place] [address] [place] Hemoglobin (Bld) [Mass/Vol] 14.3 g/dL Normal 13.0-17.0 [facility] Comment on above: Order Comment: Speci men Type: BLOOD SPECIMENOrdering Facility: [facility] Address: [address] [place] [address] Performed By: #### 5 7021-8 ####[facility] LABORATORYCLIA [id number] [place] [address] [place] Immature granulocytes (Bld) [#/Vol] 0.16 10*3/uL High <0.10 [facility] Comment on above: Order Comment: Speci men Type: BLOOD SPECIMENOrdering Facility: [facility] Address: [address] [place] [address] Performed By: #### 5 7021-8 ####[facility] LABORATORYCLIA [id number] [place] [address] [place] Immature granulocytes/100 WBC (Bld) 1.6 % Normal [facility] Comment on above: Order Comment: Speci men Type: BLOOD SPECIMENOrdering Facility: [facility] Address: [address] [place] [address] Performed By: #### 5 7021-8 ####[facility] LABORATORYCLIA [id number] [place] [address] [place] Lymphocytes (Bld) [#/Vol] 1.27 10*3/uL Normal 1.00-4.00 [facility] Comment on above: Order Comment: Speci men Type: BLOOD SPECIMENOrdering Facility: [facility] Address: [address] [place] [address] Performed By: #### 5 7021-8 ####[facility] LABORATORYCLIA [id number] [place] [address] [place] Lymphocytes/100 WBC (Bld) 12.7 % Normal [facility] Comment on above: Order Comment: Speci men Type: BLOOD SPECIMENOrdering Facility: [facility] Address: [address] [place] [address] Performed By: #### 5 7021-8 ####[facility] LABORATORYCLIA [id number] [place] [address] [place] MCH (RBC) [Entitic mass] 29.5 pg Normal 26.0-34.0 [facility] Comment on above: Order Comment: Speci men Type: BLOOD SPECIMENOrdering Facility: [facility] Address: [address] [place] [address] Performed By: #### 5 7021-8 ####[facility] LABORATORYCLIA [id number] [place] [address] [place] MCHC (RBC) [Mass/Vol] 34.0 g/dL Normal 30.5-36.0 [facility] Comment on above: Order Comment: Speci men Type: BLOOD SPECIMENOrdering Facility: [facility] Address: [address] [place] [address] Performed By: #### 5 7021-8 ####[facility] LABORATORYCLIA [id number] [place] [address] [place] MCV (RBC) [Entitic vol] 86.8 fL Normal 80.0-100.0 [facility] Comment on above: Order Comment: Speci men Type: BLOOD SPECIMENOrdering Facility: [facility] Address: [address] [place] [address] Performed By: #### 5 7021-8 ####[facility] LABORATORYCLIA [id number] [place] [address] [place] Monocytes (Bld) [#/Vol] 0.52 10*3/uL Normal <0.87 [facility] Comment on above: Order Comment: Speci men Type: BLOOD SPECIMENOrdering Facility: [facility] Address: [address] [place] [address] Performed By: #### 5 7021-8 ####[facility] LABORATORYCLIA [id number] [place] [address] [place] Monocytes/100 WBC (Bld) 5.2 % Normal [facility] Comment on above: Order Comment: Speci men Type: BLOOD SPECIMENOrdering Facility: [facility] Address: [address] [place] [address] Performed By: #### 5 7021-8 ####[facility] LABORATORYCLIA [id number] [place] [address] [place] Neutrophils (Bld) [#/Vol] 7.97 10*3/uL High 1.45-7.50 [facility] Comment on above: Order Comment: Speci men Type: BLOOD SPECIMENOrdering Facility: [facility] Address: [address] [place] [address] Performed By: #### 5 7021-8 ####[facility] LABORATORYCLIA [id number] [place] [address] [place] Neutrophils/100 WBC (Bld) 79.6 % Normal [facility] Comment on above: Order Comment: Speci men Type: BLOOD SPECIMENOrdering Facility: [facility] Address: [address] [place] [address] Performed By: #### 5 7021-8 ####[facility] LABORATORYCLIA [id number] [place] [address] [place] Nucleated RBC (Bld) [#/Vol] 10*3/uL Normal <0.01 [facility] Comment on above: Order Comment: Speci men Type: BLOOD SPECIMENOrdering Facility: [facility] Address: [address] [place] [address] Performed By: #### 5 7021-8 ####[facility] LABORATORYCLIA [id number] [place] [address] [place] Nucleated RBC/100 WBC (Bld) [Ratio] 0.0 /100 WBC Normal [facility] Comment on above: Order Comment: Speci men Type: BLOOD SPECIMENOrdering Facility: [facility] Address: [address] [place] [address] Performed By: #### 5 7021-8 ####[facility] LABORATORYCLIA [id number] [place] [address] [place] Platelet mean volume (Bld) [Entitic vol] 10.4 fL Normal 9.0-12.7 [facility] Comment on above: Order Comment: Speci men Type: BLOOD SPECIMENOrdering Facility: [facility] Address: [address] [place] [address] Performed By: #### 5 7021-8 ####[facility] LABORATORYCLIA [id number] [place] [address] [place] Platelets (Bld) [#/Vol] 529 10*3/uL High 150-400 [facility] Comment on above: Order Comment: Speci men Type: BLOOD SPECIMENOrdering Facility: [facility] Address: [address] [place] [address] Performed By: #### 5 7021-8 ####[facility] LABORATORYCLIA [id number] [place] [address] [place] RBC (Bld) [#/Vol] 4.84 10*6/uL Normal 4.20-6.00 [facility] Comment on above: Order Comment: Speci men Type: BLOOD SPECIMENOrdering Facility: [facility] Address: [address] [place] [address] Performed By: #### 5 7021-8 ####[facility] LABORATORYCLIA [id number] [place] [address] [place] WBC (Bld) [#/Vol] 10.01 10*3/uL Normal 3.70-11.00 [facility] Comment on above: Order Comment: Speci men Type: BLOOD SPECIMENOrdering Facility: [facility] Address: [address] [place] [address] Performed By: #### 5 7021-8 ####[facility] LABORATORYCLIA [id number] [place] [id number] [place] CNOVon 08-28-2023 CNOV Office Visit (GENNOM ) -- AISHA JULIEN ([id number]) 1955 Date Time Provider Department 08/28/23 10:15 AM [...] Oropharynx: Lips, (more content not included)... Normal [facility] CONSULTon 08-28-2023 CONSULT Normal [facility] CT ABD/PEL WO IVCONon 2023 CT ABD/PEL WO IVCON Normal [facility] CT BRAIN WO IVCONon 08-28-19 CT BRAIN WO IVCON Normal [facility] Comprehensive metabolic 2000 panelon 08-28-2023 Albumin [Mass/Vol] 4.1 g/dL Normal 3.9-4.9 [facility] Comment on above: Order Comment: Speci men Type: BLOOD SPECIMENOrdering Facility: [facility] Address: [address] [place] [address] Performed By: #### 2 4323-8, [id number], 17320-3, 78609-5, 3040-3 ####[facility] LABORATORYCLIA [id number] [place] [address] [place] ALP [Catalytic activity/Vol] 284 U/L High 38-113 [facility] Comment on above: Order Comment: Speci men Type: BLOOD SPECIMENOrdering Facility: [facility] Address: [address] [place] [address] Performed By: #### 2 4323-8, [id number], 43562-4, 85966-9, 3040-3 ####[facility] LABORATORYCLIA [id number] [place] [address] [place] ALT [Catalytic activity/Vol] 65 U/L High 10-54 [facility] Comment on above: Order Comment: Speci men Type: BLOOD SPECIMENOrdering Facility: [facility] Address: [address] [facility] [place] [address] Performed By: #### 2 4323-8, [id number], 18505-5, 75703-3, 3040-3 ####[facility] LABORATORYCLIA [id number] [place] [id number] [place] Anion gap [Moles/Vol] 18 mmol/L Normal 9-18 [facility] Comment on above: Order Comment: Speci men Type: BLOOD SPECIMENOrdering Facility: [facility] Address: [address] [place] [address] Performed By: #### 2 4323-8, [id number], 16049-1, 63060-0, 3040-3 ####[facility] LABORATORYCLIA [id number] [place] [address] [place] AST [Catalytic activity/Vol] 33 U/L Normal 14-40 [facility] Comment on above: Order Comment: Speci men Type: BLOOD SPECIMENOrdering Facility: [facility] Address: [address] [place] [address] Performed By: #### 2 4323-8, [id number], 27488-1, 43043-2, 3040-3 ####[facility] LABORATORYCLIA [id number] [place] [address] [place] Bilirubin [Mass/Vol] 0.7 mg/dL Normal 0.2-1.3 [facility] Comment on above: Order Comment: Speci men Type: BLOOD SPECIMENOrdering Facility: [facility] Address: [address] [place] [address] Performed By: #### 2 4323-8, [id number], 99143-4, 47723-7, 3040-3 ####[facility] LABORATORYCLIA [id number] [place] [address] [place] Calcium [Mass/Vol] 9.5 mg/dL Normal 8.5-10.2 [facility] Comment on above: Order Comment: Speci men Type: BLOOD SPECIMENOrdering Facility: [facility] Address: [address] [place] [address] Performed By: #### 2 4323-8, [id number], 04219-3, 08690-8, 3040-3 ####[facility] LABORATORYCLIA [id number] [place] [address] [place] Chloride [Moles/Vol] 96 mmol/L Low 97-105 [facility] Comment on above: Order Comment: Speci men Type: BLOOD SPECIMENOrdering Facility: [facility] Address: [address] [place] [address] Performed By: #### 2 4323-8, [id number], 91606-1, 68776-5, 3040-3 ####[facility] LABORATORYCLIA [id number] [place] [id number] [place] CO2 [Moles/Vol] 12 mmol/L Low 22-30 [facility] Comment on above: Order Comment: Speci men Type: BLOOD SPECIMENOrdering Facility: [facility] Address: [address] [place] [address] Performed By: #### 2 4323-8, [id number], 75095-7, 80365-7, 3040-3 ####[facility] LABORATORYCLIA [id number] [place] [id number] [place] Creatinine [Mass/Vol] 2.53 mg/dL High 0.73-1.22 [facility] Comment on above: Order Comment: Speci men Type: BLOOD SPECIMENOrdering Facility: [facility] Address: [address] [place] [address] Performed By: #### 2 4323-8, UQL6571, 20808-9, 35827-4, 3040-3 ####[facility] LABORATORYCLIA [id number] [place] [id number] [place] Creatinine and Glomerular filtration rate.predicted panel (S/P/Bld) 27 mL/min/1.73m??? Low >=60 [facility] Comment on above: Order Comment: Speci men Type: BLOOD SPECIMENOrdering Facility: [facility] Address: [address] [place] [address] Result Comment: Bailey mated Glomerular Filtration Rate [...] actual GFR. Performed By: #### 2 4323-8, [id number], 82870-6, 76891-3, 3040-3 ####[facility] LABORATORYCLIA [id number] [place] [id number] [place] Glucose [Mass/Vol] 138 mg/dL High 74-99 [facility] Comment on above: Order Comment: Arben suarez Type: BLOOD SPECIMENOrdering Facility: [facility] Address: [address] [place] [address] Result Comment: The [place] [employer] (ADA) provides guidance for cutoff [...] Standards of Medical Care in Diabetes 2016, [place] [employer]. Diabetes Care. 2016.39(Suppl 1). Performed By: #### 2 4323-8, AQG9537, 34281-1, 51459-8, 3040-3 ####[facility] LABORATORYCLIA [id number] [place] [id number] [place] Potassium [Moles/Vol] 5.4 mmol/L High 3.7-5.1 [facility] Comment on above: Order Comment: Arben suarez Type: BLOOD SPECIMENOrdering Facility: [facility] Address: [address] [place] [address] Performed By: #### 2 4323-8, ZNM2343, 13231-9, 01700-3, 3040-3 ####[facility] LABORATORYCLIA [id number] [place] [address] [place] Protein [Mass/Vol] 8.2 g/dL High 6.3-8.0 [facility] Comment on above: Order Comment: Speci men Type: BLOOD SPECIMENOrdering Facility: [facility] Address: [address] [place] [address] Performed By: #### 2 4323-8, [id number], 99128-7, 57689-8, 3040-3 ####[facility] LABORATORYCLIA [id number] [place] [id number] [place] Sodium [Moles/Vol] 126 mmol/L Low 136-144 [facility] Comment on above: Order Comment: Speci men Type: BLOOD SPECIMENOrdering Facility: [facility] Address: [address] [place] [address] Performed By: #### 2 4323-8, XTA1585, 06622-9, 40622-0, 3040-3 ####[facility] LABORATORYCLIA [id number] [place] [id number] [place] Urea nitrogen [Mass/Vol] 79 mg/dL High 9-24 [facility] Comment on above: Order Comment: Speci men Type: BLOOD SPECIMENOrdering Facility: [facility] Address: [address] [place] [address] Performed By: #### 2 4323-8, [id number], 70663-3, 91689-2, 3040-3 ####[facility] LABORATORYCLIA [id number] [place] [address] [place] ECG COMPLETEon 08-28-2023 ECG COMPLETE Normal [facility] ED NOTEon 08-28-2023 ED NOTE HNO ID: [id number] Author: ASTRID VALLE RN Service: ? Author Type: Registered Nurse Type: ED Notes Filed: 08/28/2023 19:07 Note Text: Report to [facility] ED NOTE HNO ID: [id number] Author: ASTRID VALLE RN Service: ? Author Type: Registered Nurse Type: ED Notes Filed: 08/28/2023 18:33 Note Text: RN unable to obtain oral or axillary temperature. Pt refusing rectal temperature at this time. Normal [facility] ED NOTE HNO ID: [id number] Author: JAVON AVILES RN Service: ? Author Type: Registered Nurse Type: ED Notes Filed: 08/28/2023 17:23 Note Text: Bed: 26-ED Expected date: Expected time: Means of arrival: Comments: triage Normal [facility] ED PROV NOTEon 08-28-2023 ED PROV NOTE Normal [facility] ED Triage Noteon 08-28-2023 ED Triage Note Normal [facility] FLUABV+SARS-CoV-2+RSV Pnl Re sp VERITO+probeon 08-28-2023 FLUABV+SARS-CoV-2+RSV Pnl Resp VERITO+probe Normal [facility] Comment on above: Performed By: #### 9 5941-1 ####[facility] LABORATORYCLIA [id number] [place] [address] [place] HIGH SENSITIVITY TROPONIN T (INITIAL)on 08-28-2023 Troponin T.cardiac High sensitivity method [Mass/Vol] 38 ng/L High <12 [facility] Comment on above: Order Comment: Arben suarez Type: BLOOD SPECIMENOrdering Facility: [facility] Address: [place] [address] Result Comment: When assessing risk for acute [...] day MACE. Performed By: #### 2 4323-8, [id number], 38621-7, 27687-7, 3040-3 ####[facility] LABORATORYCLIA [id number] [place] [address] [place] HIGH SENSITIVITY TROPONIN T (SECOND)on 08-28-2023 Troponin T.cardiac High sensitivity method [Mass/Vol] 36 ng/L High <12 [facility] Comment on above: Order Comment: Arben suarez Type: BLOOD SPECIMENOrdering Facility: [facility] Address: [address] [place] [address] Result Comment: When assessing risk for acute [...] 30 day MACE. Performed By: #### L [id number] ####[facility] LABORATORYCLIA [id number] [place] [id number] [place] Lipase SerPl-cCncon 08-28-19 24 Lipase [Catalytic activity/Vol] 148 U/L High 16-61 [facility] Comment on above: Order Comment: Speci men Type: BLOOD SPECIMENOrdering Facility: [facility] Address: [address] [place] [address] Performed By: #### 2 4323-8, SVU2981, 44639-0, 30715-3, 3040-3 ####[facility] LABORATORYCLIA [id number] [place] [address] [place] Magnesium SerPl-mCncon 08-28 Magnesium [Mass/Vol] 2.5 mg/dL High 1.7-2.3 [facility] Comment on above: Order Comment: Speci men Type: BLOOD SPECIMENOrdering Facility: [facility] Address: [address] [place] [address] Performed By: #### 2 4323-8, OMU4789, 73748-1, 00633-3, 3040-3 ####[facility] LABORATORYCLIA [id number] [place] [id number] [place] NT-proBNP SerPl-mCncon 08-28 Natriuretic peptide.B prohormone N-Terminal [Mass/Vol] 404 pg/mL High <125 [facility] Comment on above: Order Comment: Speci men Type: BLOOD SPECIMENOrdering Facility: [facility] Address: [address] [place] [address] Performed By: #### 2 4323-8, [id number], 00498-6, 72440-0, 3040-3 ####[facility] LABORATORYCLIA [id number] [place] [id number] [place] PT panel Coag (PPP)on 2023 INR Coag (PPP) [Relative time] 1.3 {INR} Normal 0.9-1.3 [facility] Comment on above: Order Comment: Speci men Type: BLOOD SPECIMENOrdering Facility: [facility] Address: [place] [address] Result Comment: Karissa min K Antagonist (VKA) Therapeutic Range: INR 2 to 3 (Target INR of 2.5)Note: For patients treated with VKA drugs, such as warfarin, the [place] [employer] 2012 Guideline recommends [...] al. Chest 2012, 141:7S-47SNishpalmer RA, et al. [facility] 2017, 70: 252-289 Performed By: #### 3 4528-0, 31026-8 ####[facility] LABORATORYCLIA [id number] [place] [address] [place] PT Coag (PPP) [Time] 13.7 s High 9.7-13.0 [facility] Comment on above: Order Comment: Speci men Type: BLOOD SPECIMENOrdering Facility: [facility] Address: [place] [address] Performed By: #### 3 4528-0, 83759-4 ####[facility] LABORATORYCLIA [id number] [place] [id number] [place] SEPSIS LACTATEon 08-28-2023 Lactate [Moles/Vol] 2.2 mmol/L High 0.0-2.0 [facility] Comment on above: Order Comment: Speci men Type: BLOOD SPECIMENOrdering Facility: [facility] Address: [address] [place] [address] Performed By: #### S LACT ####[facility] LABORATORYCLIA [id number] [place] [address] [place] Lactate [Moles/Vol] 2.6 mmol/L High 0.0-2.0 [facility] Comment on above: Order Comment: Speci men Type: BLOOD SPECIMENOrdering Facility: [facility] Address: [address] [place] [address] Performed By: #### S LACT ####[facility] LABORATORYCLIA [id number] [place] [address] [place] XR ABDOMEN 1V SUPINEon 08-28 XR ABDOMEN 1V SUPINE Normal [facility] XR CHEST 1V FRONTAL PORTon 0 08-28-2023 XR CHEST 1V FRONTAL PORT Normal [facility] aPTT PPPon 08-28-2023 aPTT Coag (PPP) [Time] 32.1 s Normal 23.0-32.4 [facility] Comment on above: Order Comment: Speci men Type: BLOOD SPECIMENOrdering Facility: [facility] Address: [address] [place] [address] Performed By: #### 3 4528-0, 59708-5 ####[facility] LABORATORYCLIA [id number] [place] [address] [place] CASE MANAGEMon 08-17-2023 CASE MANAGEM Normal [facility] CNDSon 08-17-2023 CNDS Normal [facility] Comprehensive metabolic 2000 panelon 08-17-2023 Albumin [Mass/Vol] 3.0 g/dL Low 3.9-4.9 [facility] Comment on above: Order Comment: Speci men Type: BLOOD SPECIMENOrdering Facility: [facility] Address: [address] [place] [address] Performed By: #### 2 4323-8, 2777-1, 08228-9 ####[facility] LABORATORYCLIA [id number] [place] [address] [place] ALP [Catalytic activity/Vol] 137 U/L High 38-113 [facility] Comment on above: Order Comment: Speci men Type: BLOOD SPECIMENOrdering Facility: [facility] Address: [place] [address] Performed By: #### 2 4323-8, 2776-08, ####[facility] LABORATORYCLIA [id number] [place] [address] [place] ALT [Catalytic activity/Vol] 19 U/L Normal 10-54 [facility] Comment on above: Order Comment: Speci men Type: BLOOD SPECIMENOrdering Facility: [facility] Address: [address] [place] [address] Performed By: #### 2 4323-8, 2776-08, ####[facility] LABORATORYCLIA [id number] [place] [address] [place] Anion gap [Moles/Vol] 11 mmol/L Normal 9-18 [facility] Comment on above: Order Comment: Speci men Type: BLOOD SPECIMENOrdering Facility: [facility] Address: [address] [place] [address] Performed By: #### 2 4323-8, 2776-08, ####[facility] LABORATORYCLIA [id number] [place] [id number] [place] AST [Catalytic activity/Vol] 18 U/L Normal 14-40 [facility] Comment on above: Order Comment: Speci men Type: BLOOD SPECIMENOrdering Facility: [facility] Address: [address] [place] [address] Performed By: #### 2 4323-8, 2776-08, ####[facility] LABORATORYCLIA [id number] [place] [id number] [place] Bilirubin [Mass/Vol] 0.8 mg/dL Normal 0.2-1.3 [facility] Comment on above: Order Comment: Speci men Type: BLOOD SPECIMENOrdering Facility: [facility] Address: [address] [place] [address] Performed By: #### 2 4323-8, 2776-08, ####[facility] LABORATORYCLIA [id number] [place] [address] [place] Calcium [Mass/Vol] 8.4 mg/dL Low 8.5-10.2 [facility] Comment on above: Order Comment: Speci men Type: BLOOD SPECIMENOrdering Facility: [facility] Address: [address] [place] [address] Performed By: #### 2 4323-8, 2776-08, ####[facility] LABORATORYCLIA [id number] [place] [address] [place] Chloride [Moles/Vol] 102 mmol/L Normal 97-105 [facility] Comment on above: Order Comment: Speci men Type: BLOOD SPECIMENOrdering Facility: [facility] Address: [address] [place] [address] Performed By: #### 2 4323-8, 2776-08, ####[facility] LABORATORYCLIA [id number] [place] [address] [place] CO2 [Moles/Vol] 22 mmol/L Normal 22-30 [facility] Comment on above: Order Comment: Speci men Type: BLOOD SPECIMENOrdering Facility: [facility] Address: [place] [address] Performed By: #### 2 4323-8, 2776-08, ####[facility] LABORATORYCLIA [id number] [place] [address] [place] Creatinine [Mass/Vol] 1.06 mg/dL Normal 0.73-1.22 [facility] Comment on above: Order Comment: Speci men Type: BLOOD SPECIMENOrdering Facility: [facility] Address: [address] [place] [address] Performed By: #### 2 4323-8, 2776-08, ####[facility] LABORATORYCLIA [id number] [place] [address] [place] Creatinine and Glomerular filtration rate.predicted panel (S/P/Bld) 76 mL/min/1.73m??? Normal >=60 [facility] Comment on above: Order Comment: Arben suarez Type: BLOOD SPECIMENOrdering Facility: [facility] Address: [address] [place] [address] Result Comment: Bailey mated Glomerular Filtration Rate [...] GFR. Performed By: #### 2 4323-8, 2777-, ####[facility] LABORATORYCLIA [id number] [place] [address] [place] Glucose [Mass/Vol] 119 mg/dL High 74-99 [facility] Comment on above: Order Comment: Arben suarez Type: BLOOD SPECIMENOrdering Facility: [facility] Address: [address] [place] [address] Result Comment: The [place] [employer] (ADA) provides guidance for cutoff [...] Standards of Medical Care in Diabetes 2016, [place] [employer]. Diabetes Care. 2016.39(Suppl 1). Performed By: #### 2 4323-8, 2777-, ####[facility] LABORATORYCLIA [id number] [place] [address] [place] Potassium [Moles/Vol] 3.9 mmol/L Normal 3.7-5.1 [facility] Comment on above: Order Comment: Speci men Type: BLOOD SPECIMENOrdering Facility: [facility] Address: [address] [place] [address] Performed By: #### 2 4323-8, 2776-08, ####[facility] LABORATORYCLIA [id number] [place] [address] [place] Protein [Mass/Vol] 5.9 g/dL Low 6.3-8.0 [facility] Comment on above: Order Comment: Speci men Type: BLOOD SPECIMENOrdering Facility: [facility] Address: [address] [place] [address] Performed By: #### 2 4323-8, 2776-08, ####[facility] LABORATORYCLIA [id number] [place] [address] [place] Sodium [Moles/Vol] 135 mmol/L Low 136-144 [facility] Comment on above: Order Comment: Speci men Type: BLOOD SPECIMENOrdering Facility: [facility] Address: [address] [place] [address] Performed By: #### 2 4323-8, 2776-08, ####[facility] LABORATORYCLIA [id number] [place] [address] [place] Urea nitrogen [Mass/Vol] 19 mg/dL Normal - [facility] Comment on above: Order Comment: Speci men Type: BLOOD SPECIMENOrdering Facility: [facility] Address: [address] [place] [address] Performed By: #### 2 4323-8, 2776-08, ####[facility] LABORATORYCLIA [id number] [place] [address] [place] Magnesium SerPl-mCncon 08-17 Magnesium [Mass/Vol] 2.3 mg/dL Normal 1.7-2.3 [facility] Comment on above: Order Comment: Speci men Type: BLOOD SPECIMENOrdering Facility: [facility] Address: [address] [place] [address] Performed By: #### 2 4323-8, 2776-08, ####[facility] LABORATORYCLIA [id number] [place] [address] [facility] [place] NURSING PROGon 08-17-2023 NURSING PROG Normal [facility] Phosphate SerPl-mCncon 08-17 Phosphate [Mass/Vol] 3.0 mg/dL Normal 2.7-4.8 [facility] Comment on above: Order Comment: Speci men Type: BLOOD SPECIMENOrdering Facility: [facility] Address: [address] [place] [address] Performed By: #### 2 4323-8, 2776-08, ####[facility] LABORATORYCLIA [id number] [place] [id number] [facility] CASE MANAGEMon 08-16-2023 CASE MANAGEM Normal [facility] CBC panel Auto (Bld)on 08-16 Erythrocyte distribution width (RBC) [Ratio] 12.0 % Normal 11.5-15.0 [facility] Comment on above: Order Comment: Speci men Type: BLOOD SPECIMENOrdering Facility: [facility] Address: [address] [place] [address] Performed By: #### 5 8410-2 ####[facility] LABORATORYCLIA [id number] [place] [address] [place] Hematocrit (Bld) [Volume fraction] 33.3 % Low 39.0-51.0 [facility] Comment on above: Order Comment: Speci men Type: BLOOD SPECIMENOrdering Facility: [facility] Address: [address] [place] [address] Performed By: #### 5 8410-2 ####[facility] LABORATORYCLIA [id number] [place] [address] [place] Hemoglobin (Bld) [Mass/Vol] 11.1 g/dL Low 13.0-17.0 [facility] Comment on above: Order Comment: Speci men Type: BLOOD SPECIMENOrdering Facility: [facility] Address: [address] [place] [address] Performed By: #### 5 8410-2 ####[facility] LABORATORYCLIA [id number] [place] [address] [place] [facility] MCH (RBC) [Entitic mass] 30.2 pg Normal 26.0-34.0 [facility] Comment on above: Order Comment: Speci men Type: BLOOD SPECIMENOrdering Facility: [facility] Address: [address] [place] [address] Performed By: #### 5 8410-2 ####[facility] LABORATORYCLIA [id number] [place] [address] [place] MCHC (RBC) [Mass/Vol] 33.3 g/dL Normal 30.5-36.0 [facility] Comment on above: Order Comment: Speci men Type: BLOOD SPECIMENOrdering Facility: [facility] Address: [address] [place] [address] Performed By: #### 5 8410-2 ####[facility] LABORATORYCLIA [id number] [address] [place] MCV (RBC) [Entitic vol] 90.5 fL Normal 80.0-100.0 [facility] Comment on above: Order Comment: Speci men Type: BLOOD SPECIMENOrdering Facility: [facility] Address: [address] [place] [address] Performed By: #### 5 8410-2 ####[facility] LABORATORYCLIA [id number] [address] [place] Nucleated RBC (Bld) [#/Vol] 10*3/uL Normal <0.01 [facility] Comment on above: Order Comment: Speci men Type: BLOOD SPECIMENOrdering Facility: [facility] Address: [address] [place] [address] Performed By: #### 5 8410-2 ####[facility] LABORATORYCLIA [id number] [address] [place] Platelet mean volume (Bld) [Entitic vol] 11.3 fL Normal 9.0-12.7 [facility] Comment on above: Order Comment: Speci men Type: BLOOD SPECIMENOrdering Facility: [facility] Address: [address] [place] [address] Performed By: #### 5 8410-2 ####[facility] LABORATORYCLIA [id number] [place] [address] [place] Platelets (Bld) [#/Vol] 214 10*3/uL Normal 150-400 [facility] Comment on above: Order Comment: Speci men Type: BLOOD SPECIMENOrdering Facility: [facility] Address: [address] [place] [address] Performed By: #### 5 8410-2 ####[facility] LABORATORYCLIA [id number] [place] [address] [place] RBC (Bld) [#/Vol] 3.68 10*6/uL Low 4.20-6.00 [facility] Comment on above: Order Comment: Speci men Type: BLOOD SPECIMENOrdering Facility: [facility] Address: [address] [place] [address] Performed By: #### 5 8410-2 ####[facility] LABORATORYCLIA [id number] [place] [address] [place] WBC (Bld) [#/Vol] 7.23 10*3/uL Normal 3.70-11.00 [facility] Comment on above: Order Comment: Speci men Type: BLOOD SPECIMENOrdering Facility: [facility] Address: [address] [place] [address] Performed By: #### 5 8410-2 ####[facility] LABORATORYCLIA [id number] [place] [id number] [place] CONSULTon 08-16-2023 CONSULT Normal [facility] Comprehensive metabolic 2000 panelon 08-16-2023 Albumin [Mass/Vol] 3.2 g/dL Low 3.9-4.9 [facility] Comment on above: Order Comment: Speci men Type: BLOOD SPECIMENOrdering Facility: [facility] Address: [address] [place] [address] Performed By: #### 2 777-1, 33223-4, 50643-7 ####[facility] LABORATORYCLIA [id number] [place] [address] [place] ALP [Catalytic activity/Vol] 139 U/L High 38-113 [facility] Comment on above: Order Comment: Speci men Type: BLOOD SPECIMENOrdering Facility: [facility] Address: [address] [place] [address] Performed By: #### 2 777-1, , ####[facility] LABORATORYCLIA [id number] [place] [id number] [place] ALT [Catalytic activity/Vol] 23 U/L Normal 10-54 [facility] Comment on above: Order Comment: Speci men Type: BLOOD SPECIMENOrdering Facility: [facility] Address: [address] [place] [address] Performed By: #### 2 777-1, , ####[facility] LABORATORYCLIA [id number] [place] [address] [place] Anion gap [Moles/Vol] 9 mmol/L Normal 9-18 [facility] Comment on above: Order Comment: Speci men Type: BLOOD SPECIMENOrdering Facility: [facility] Address: [address] [place] [address] Performed By: #### 2 777-1, , ####[facility] LABORATORYCLIA [id number] [place] [id number] [place] AST [Catalytic activity/Vol] 22 U/L Normal 14-40 [facility] Comment on above: Order Comment: Speci men Type: BLOOD SPECIMENOrdering Facility: [facility] Address: [address] [place] [address] Performed By: #### 2 777-1, , ####[facility] LABORATORYCLIA [id number] [place] [id number] [place] Bilirubin [Mass/Vol] 0.8 mg/dL Normal 0.2-1.3 [facility] Comment on above: Order Comment: Speci men Type: BLOOD SPECIMENOrdering Facility: [facility] Address: [address] [place] [address] Performed By: #### 2 777-1, , ####[facility] LABORATORYCLIA [id number] [place] [address] [place] Calcium [Mass/Vol] 8.7 mg/dL Normal 8.5-10.2 [facility] Comment on above: Order Comment: Speci men Type: BLOOD SPECIMENOrdering Facility: [facility] Address: [address] [place] [address] Performed By: #### 2 777-1, , ####[facility] LABORATORYCLIA [id number] [place] [address] [place] Chloride [Moles/Vol] 103 mmol/L Normal 97-105 [facility] Comment on above: Order Comment: Speci men Type: BLOOD SPECIMENOrdering Facility: [facility] Address: [address] [place] [address] Performed By: #### 2 777-1, , ####[facility] LABORATORYCLIA [id number] [place] [id number] [place] CO2 [Moles/Vol] 25 mmol/L Normal 22-30 [facility] Comment on above: Order Comment: Speci men Type: BLOOD SPECIMENOrdering Facility: [facility] Address: [address] [place] [address] Performed By: #### 2 777-1, , ####[facility] LABORATORYCLIA [id number] [place] [address] [place] Creatinine [Mass/Vol] 1.04 mg/dL Normal 0.73-1.22 [facility] Comment on above: Order Comment: Speci men Type: BLOOD SPECIMENOrdering Facility: [facility] Address: [address] [place] [address] Performed By: #### 2 777-1, , ####[facility] LABORATORYCLIA [id number] [place] [address] [place] Creatinine and Glomerular filtration rate.predicted panel (S/P/Bld) 78 mL/min/1.73m??? Normal >=60 [facility] Comment on above: Order Comment: Arben suarez Type: BLOOD SPECIMENOrdering Facility: [facility] Address: [address] [place] [address] Result Comment: Bailey mated Glomerular Filtration Rate [...] actual GFR. Performed By: #### 2 777-1, 95724-7, ####[facility] HOSPITALCLIA [id number] [place] [address] [place] Glucose [Mass/Vol] 111 mg/dL High 74-99 [facility] Comment on above: Order Comment: Arben suarez Type: BLOOD SPECIMENOrdering Facility: [facility] Address: [address] [place] [address] Result Comment: The [place] Diabetes Association (ADA) provides guidance for cutoff [...] Standards of Medical Care in Diabetes 2016, [place] [employer]. Diabetes Care. 2016.39(Suppl 1). Performed By: #### 2 777-1, 72087-3, ####B[facility] LABORATORYCLIA [id number] [place] [address] [place] Potassium [Moles/Vol] 4.2 mmol/L Normal 3.7-5.1 [facility] Comment on above: Order Comment: Speci men Type: BLOOD SPECIMENOrdering Facility: [facility] Address: [address] [place] [address] Performed By: #### 2 777-1, , ####GE[facility] LABORATORYCLIA [id number] [place] [address] [place] Protein [Mass/Vol] 6.2 g/dL Low 6.3-8.0 [facility] Comment on above: Order Comment: Speci men Type: BLOOD SPECIMENOrdering Facility: [facility] Address: [address] [place] [address] Performed By: #### 2 777-1, , ####GEOV[facility] LABORATORYCLIA [id number] [place] [address] [place] Sodium [Moles/Vol] 137 mmol/L Normal 136-144 [facility] Comment on above: Order Comment: Speci men Type: BLOOD SPECIMENOrdering Facility: [facility] Address: [address] [place] [address] Performed By: #### 2 777-1, , ####GEOV[facility] LABORATORYCLIA [id number] [place] [address] [place] Urea nitrogen [Mass/Vol] 24 mg/dL Normal 9-24 [facility] Comment on above: Order Comment: Speci men Type: BLOOD SPECIMENOrdering Facility: [facility] Address: [address] [place] [address] Performed By: #### 2 777-1, , ####GEOV[facility] LABORATORYCLIA [id number] [place] [address] [place] Magnesium SerPl-mCncon 08-16 Magnesium [Mass/Vol] 1.8 mg/dL Normal 1.7-2.3 [facility] Comment on above: Order Comment: Speci men Type: BLOOD SPECIMENOrdering Facility: [facility] Address: [address] [place] [address] Performed By: #### 2 777-1, , ####BOW[facility] LABORATORYCLIA [id number] [place] [address] [place] Phosphate SerPl-mCncon 08-16 Phosphate [Mass/Vol] 2.6 mg/dL Low 2.7-4.8 [facility] Comment on above: Order Comment: Speci men Type: BLOOD SPECIMENOrdering Facility: [facility] Address: [address] [place] [address] Performed By: #### 2 777-1, 38599-7, ####B[facility] LABORATORYCLIA [id number] [place] [address] [place] ALLIED HEALTHon 08-15-2023 ALLIED HEALTH Normal [facility] ALLIED HEALTH Normal [facility] Basic metabolic 2000 panelon 08-15-2023 Anion gap [Moles/Vol] 10 mmol/L Normal 9-18 [facility] Comment on above: Order Comment: Speci men Type: BLOOD SPECIMENOrdering Facility: [facility] Address: [place] [address] Performed By: #### 2 4321-2 ####BOW[facility] LABORATORYCLIA [id number] [place] [address] [place] Calcium [Mass/Vol] 8.8 mg/dL Normal 8.5-10.2 [facility] Comment on above: Order Comment: Speci men Type: BLOOD SPECIMENOrdering Facility: [facility] Address: [place] [address] Performed By: #### 2 4321-2 ####BOW[facility] LABORATORYCLIA [id number] [place] [address] [place] Chloride [Moles/Vol] 101 mmol/L Normal 97-105 [facility] Comment on above: Order Comment: Speci men Type: BLOOD SPECIMENOrdering Facility: [facility] Address: [place] [address] Performed By: #### 2 4321-2 ####B[facility] LABORATORYCLIA [id number] [place] [address] [place] CO2 [Moles/Vol] 26 mmol/L Normal 22-30 [facility] Comment on above: Order Comment: Miabrooks suarez Type: BLOOD SPECIMENOrdering Facility: [facility] Address: [address] [place] [address] Performed By: #### 2 4321-2 ####B[facility] LABORATORYCLIA [id number] [place] [address] [place] Creatinine [Mass/Vol] 1.08 mg/dL Normal 0.73-1.22 [facility] Comment on above: Order Comment: Arben daniela Type: BLOOD SPECIMENOrdering Facility: [facility] Address: [address] [place] [address] Performed By: #### 2 4321-2 ####B[facility] LABORATORYCLIA [id number] [address] Creatinine and Glomerular filtration rate.predicted panel (S/P/Bld) 75 mL/min/1.73m??? Normal >=60 [facility] Comment on above: Order Comment: Miabrooks suarez Type: BLOOD SPECIMENOrdering Facility: [facility] Address: [address] [place] [address] Result Comment: Bailey mated Glomerular Filtration Rate [...] actual GFR. Performed By: #### 2 4321-2 ####B[facility] LABORATORYCLIA [id number] [place] [address] [place] Glucose [Mass/Vol] 92 mg/dL Normal 74-99 [facility] Comment on above: Order Comment: Arben suarez Type: BLOOD SPECIMENOrdering Facility: [facility] Address: [address] [place] [address] Result Comment: The [place] Diabetes Association (ADA) provides guidance for cutoff [...] Standards of Medical Care in Diabetes 2016, [place] [employer]. Diabetes Care. 2016.39(Suppl 1). Performed By: #### 2 4321-2 ####B[facility] LABORATORYCLIA [id number] [place] [address] [place] Potassium [Moles/Vol] 4.6 mmol/L Normal 3.7-5.1 [facility] Comment on above: Order Comment: Arben suarez Type: BLOOD SPECIMENOrdering Facility: [facility] Address: [address] [place] [address] Performed By: #### 2 4321-2 ####B[facility] LABORATORYCLIA [id number] [place] [address] [place] Sodium [Moles/Vol] 137 mmol/L Normal 136-144 [facility] Comment on above: Order Comment: Arben suarez Type: BLOOD SPECIMENOrdering Facility: [facility] Address: [address] [place] [address] Performed By: #### 2 4321-2 ####B[facility] LABORATORYCLIA [id number] [place] [address] [place] Urea nitrogen [Mass/Vol] 28 mg/dL High 9-24 [facility] Comment on above: Order Comment: Arben suarez Type: BLOOD SPECIMENOrdering Facility: [facility] Address: [address] [place] [address] Performed By: #### 2 4321-2 ####B[facility] LABORATORYCLIA [id number] [place] [address] [place] CASE MANAGEMon 08-15-2023 CASE MANAGEM Normal [facility] CASE MANAGEM Normal [facility] CONSULT PROGon 08-15-2023 CONSULT PROG Normal [facility] Comprehensive metabolic 2000 panelon 08-15-2023 Albumin [Mass/Vol] 3.0 g/dL Low 3.9-4.9 [facility] Comment on above: Order Comment: Speci men Type: BLOOD SPECIMENOrdering Facility: [facility] Address: [address] [facility] [place] [address] Performed By: #### 1 9123-9, 60116-9, 2776- ####B[facility] LABORATORYCLIA [id number] [place] [address] [place] ALP [Catalytic activity/Vol] 123 U/L High 38-113 [facility] Comment on above: Order Comment: Speci men Type: BLOOD SPECIMENOrdering Facility: [facility] Address: [address] [place] [address] Performed By: #### 1 9123-9, 52346-4, 2776- ####B[facility] LABORATORYCLIA [id number] [place] [address] [place] ALT [Catalytic activity/Vol] 24 U/L Normal 10-54 [facility] Comment on above: Order Comment: Speci men Type: BLOOD SPECIMENOrdering Facility: [facility] Address: [address] [facility] [place] [address] Performed By: #### 1 9123-9, 08372-9, 2776- ####B[facility] LABORATORYCLIA [id number] [place] [address] [place] Anion gap [Moles/Vol] 8 mmol/L Low 9-18 [facility] Comment on above: Order Comment: Speci men Type: BLOOD SPECIMENOrdering Facility: [facility] Address: [address] [facility] [place] [address] Performed By: #### 1 9123-9, 69016-8, 2776- ####B[facility] LABORATORYCLIA [id number] [place] [address] [place] AST [Catalytic activity/Vol] 26 U/L Normal 14-40 [facility] Comment on above: Order Comment: Speci men Type: BLOOD SPECIMENOrdering Facility: [facility] Address: [address] [place] [address] Performed By: #### 1 9123-9, 74021-8, 2776-08 ####[facility] LABORATORYCLIA [id number] [place] [address] [place] Bilirubin [Mass/Vol] 0.9 mg/dL Normal 0.2-1.3 [facility] Comment on above: Order Comment: Speci men Type: BLOOD SPECIMENOrdering Facility: [facility] Address: [address] [place] [address] Performed By: #### 1 9123-9, , 2776-08 ####[facility] LABORATORYCLIA [id number] [place] [address] [place] Calcium [Mass/Vol] 8.9 mg/dL Normal 8.5-10.2 [facility] Comment on above: Order Comment: Speci men Type: BLOOD SPECIMENOrdering Facility: [facility] Address: [address] [place] [address] Performed By: #### 1 91239, , 2776-08 ####[facility] LABORATORYCLIA [id number] [place] [address] [place] Chloride [Moles/Vol] 103 mmol/L Normal 97-105 [facility] Comment on above: Order Comment: Speci men Type: BLOOD SPECIMENOrdering Facility: [facility] Address: [address] [place] [address] Performed By: #### 1 23-9, , 2776-08 ####[facility] LABORATORYCLIA [id number] [place] [address] [place] CO2 [Moles/Vol] 28 mmol/L Normal 22-30 [facility] Comment on above: Order Comment: Speci men Type: BLOOD SPECIMENOrdering Facility: [facility] Address: [address] [place] [address] Performed By: #### 1 9123-9, , 2776- ####[facility] LABORATORYCLIA [id number] [place] [address] [place] Creatinine [Mass/Vol] 1.01 mg/dL Normal 0.73-1.22 [facility] Comment on above: Order Comment: Arben suarez Type: BLOOD SPECIMENOrdering Facility: [facility] Address: [address] [place] [address] Performed By: #### 1 9123-9, 38491-0, 2777-1 ####[facility] LABORATORYCLIA [id number] [place] [address] [place] Creatinine and Glomerular filtration rate.predicted panel (S/P/Bld) 81 mL/min/1.73m??? Normal >=60 [facility] Comment on above: Order Comment: Arben suarez Type: BLOOD SPECIMENOrdering Facility: [facility] Address: [address] [place] [address] Result Comment: Bailey mated Glomerular Filtration Rate [...] actual GFR. Performed By: #### 1 9123-9, 01446-4, 2777-1 ####B[facility] LABORATORYCLIA [id number] [place] [address] [place] Glucose [Mass/Vol] 91 mg/dL Normal 74-99 [facility] Comment on above: Order Comment: Arben suarez Type: BLOOD SPECIMENOrdering Facility: [facility] Address: [address] [place] [address] Result Comment: The [place] Diabetes Association (ADA) provides guidance for cutoff [...] Standards of Medical Care in Diabetes 2016, [place] [employer]. Diabetes Care. 2016.39(Suppl 1). Performed By: #### 1 9123-9, 78043-9, 277- ####[facility] LABORATORYCLIA [id number] [place] [address] [place] Potassium [Moles/Vol] 5.3 mmol/L High 3.7-5.1 [facility] Comment on above: Order Comment: Speci men Type: BLOOD SPECIMENOrdering Facility: [facility] Address: [address] [place] [address] Performed By: #### 1 9123-9, 49177-1, 2776- ####GE[facility] LABORATORYCLIA [id number] [place] [address] [place] Protein [Mass/Vol] 6.1 g/dL Low 6.3-8.0 [facility] Comment on above: Order Comment: Speci men Type: BLOOD SPECIMENOrdering Facility: [facility] Address: [address] [place] [address] Performed By: #### 1 9123-9, 28184-1, 2776-08 ####[facility] LABORATORYCLIA [id number] [place] [address] [place] Sodium [Moles/Vol] 139 mmol/L Normal 136-144 [facility] Comment on above: Order Comment: Speci men Type: BLOOD SPECIMENOrdering Facility: [facility] Address: [address] [place] [address] Performed By: #### 1 9123-9, , 2776- ####GE[facility] LABORATORYCLIA [id number] [place] [address] [place] Urea nitrogen [Mass/Vol] 30 mg/dL High 9-24 [facility] Comment on above: Order Comment: Speci men Type: BLOOD SPECIMENOrdering Facility: [facility] Address: [address] [place] [address] Performed By: #### 1 9123-9, 34195-2, 2776- ####GEOV[facility] LABORATORYCLIA [id number] [place] [address] [place] Magnesium SerPl-ncon 08-15 Magnesium [Mass/Vol] 1.9 mg/dL Normal 1.7-2.3 [facility] Comment on above: Order Comment: Speci men Type: BLOOD SPECIMENOrdering Facility: [facility] Address: [address] [place] [id number] Performed By: #### 1 9123-9, 96421-4, 2777-1 ####B[facility] LABORATORYCLIA [id number] [address] [place] NURSING PROGon 08-15-2023 NURSING PROG Normal [facility] NUTRITIONon 08-15-2023 NUTRITION Normal [facility] Phosphate SerPl-ncon 08-15 Phosphate [Mass/Vol] 2.5 mg/dL Low 2.7-4.8 [facility] Comment on above: Order Comment: Speci men Type: BLOOD SPECIMENOrdering Facility: [facility] Address: [address] [place] [id number] Performed By: #### 1 9123-9, 72966-2, 2777-1 ####B[facility] LABORATORYCLIA [id number] [place] [address] [place] XR ABDOMEN 1V SUPINEon 08-15 XR ABDOMEN 1V SUPINE Normal [facility] ANES POSTPROC EVALon 023 ANES POSTPROC EVAL Normal [facility] ANES PRE-OPon 08-14-2023 ANES PRE-OP Normal [facility] CASE MANAGEMon 08-14-2023 CASE MANAGEM Normal [facility] CNCOon 08-14-2023 CNCO Letter Text Normal [facility] Comprehensive metabolic 2000 panelon 08-14-2023 Albumin [Mass/Vol] 3.2 g/dL Low 3.9-4.9 [facility] Comment on above: Order Comment: Speci men Type: BLOOD SPECIMENOrdering Facility: [facility] Address: [address] [place] [id number] Performed By: #### 2 4323-8, 02366-9, 2777-1 ####B[facility] LABORATORYCLIA [id number] [place] [address] [place] ALP [Catalytic activity/Vol] 122 U/L High 38-113 [facility] Comment on above: Order Comment: Speci men Type: BLOOD SPECIMENOrdering Facility: [facility] Address: [address] [place] [address] Performed By: #### 2 4323-8, , 2776-08 ####GEOV[facility] LABORATORYCLIA [id number] [place] [address] [place] ALT [Catalytic activity/Vol] 19 U/L Normal 10-54 [facility] Comment on above: Order Comment: Speci men Type: BLOOD SPECIMENOrdering Facility: [facility] Address: [address] [place] [address] Performed By: #### 2 4323-8, , 2776-08 ####GE[facility] LABORATORYCLIA [id number] [place] [address] [place] Anion gap [Moles/Vol] 13 mmol/L Normal 9-18 [facility] Comment on above: Order Comment: Speci men Type: BLOOD SPECIMENOrdering Facility: [facility] Address: [address] [place] [address] Performed By: #### 2 4323-8, , 2776-08 ####[facility] LABORATORYCLIA [id number] [place] [address] [place] AST [Catalytic activity/Vol] 26 U/L Normal 14-40 [facility] Comment on above: Order Comment: Speci men Type: BLOOD SPECIMENOrdering Facility: [facility] Address: [address] [place] [address] Performed By: #### 2 4323-8, , 2776-08 ####GEOV[facility] LABORATORYCLIA [id number] [place] [address] [place] Bilirubin [Mass/Vol] 1.0 mg/dL Normal 0.2-1.3 [facility] Comment on above: Order Comment: Speci men Type: BLOOD SPECIMENOrdering Facility: [facility] Address: [address] [place] [address] Performed By: #### 2 4323-8, , 2776-08 ####[facility] LABORATORYCLIA [id number] [place] [address] [place] Calcium [Mass/Vol] 9.0 mg/dL Normal 8.5-10.2 [facility] Comment on above: Order Comment: Speci men Type: BLOOD SPECIMENOrdering Facility: [facility] Address: [address] [place] [address] Performed By: #### 2 4323-8, , 2776-08 ####[facility] LABORATORYCLIA [id number] [place] [address] [place] Chloride [Moles/Vol] 100 mmol/L Normal 97-105 [facility] Comment on above: Order Comment: Speci men Type: BLOOD SPECIMENOrdering Facility: [facility] Address: [address] [place] [address] Performed By: #### 2 432-8, , 2776-08 ####[facility] LABORATORYCLIA [id number] [place] [address] [place] CO2 [Moles/Vol] 26 mmol/L Normal 22-30 [facility] Comment on above: Order Comment: Speci men Type: BLOOD SPECIMENOrdering Facility: [facility] Address: [address] [place] [address] Performed By: #### 2 4323-8, , 2776-08 ####B[facility] LABORATORYCLIA [id number] [place] [address] [place] Creatinine [Mass/Vol] 1.12 mg/dL Normal 0.73-1.22 [facility] Comment on above: Order Comment: Speci men Type: BLOOD SPECIMENOrdering Facility: [facility] Address: [address] [place] [address] Performed By: #### 2 4323-8, , 2776-08 ####[facility] LABORATORYCLIA [id number] [place] [address] [place] Creatinine and Glomerular filtration rate.predicted panel (S/P/Bld) 72 mL/min/1.73m??? Normal >=60 [facility] Comment on above: Order Comment: Arben suarez Type: BLOOD SPECIMENOrdering Facility: [facility] Address: [address] [place] [address] Result Comment: Bailey mated Glomerular Filtration Rate [...] actual GFR. Performed By: #### 2 4323-8, 32111-5, 2776- ####[facility] LABORATORYCLIA [id number] [place] [address] [place] Glucose [Mass/Vol] 127 mg/dL High 74-99 [facility] Comment on above: Order Comment: Arben suarez Type: BLOOD SPECIMENOrdering Facility: [facility] Address: [address] [place] [address] Result Comment: The [place] Diabetes Association (ADA) provides guidance for cutoff [...] Standards of Medical Care in Diabetes 2016, [place] [employer]. Diabetes Care. 2016.39(Suppl 1). Performed By: #### 2 4323-8, 81007-7, 2776-08 ####[facility] LABORATORYCLIA [id number] [place] [address] [place] Potassium [Moles/Vol] 4.1 mmol/L Normal 3.7-5.1 [facility] Comment on above: Order Comment: Speci men Type: BLOOD SPECIMENOrdering Facility: [facility] Address: [address] [place] [address] Performed By: #### 2 4323-8, , 2776-08 ####[facility] LABORATORYCLIA [id number] [place] [address] [place] Protein [Mass/Vol] 6.6 g/dL Normal 6.3-8.0 [facility] Comment on above: Order Comment: Speci men Type: BLOOD SPECIMENOrdering Facility: [facility] Address: [address] [place] [address] Performed By: #### 2 4323-8, , 2776-08 ####GE[facility] LABORATORYCLIA [id number] [place] [address] [place] Sodium [Moles/Vol] 139 mmol/L Normal 136-144 [facility] Comment on above: Order Comment: Speci men Type: BLOOD SPECIMENOrdering Facility: [facility] Address: [address] [place] [address] Performed By: #### 2 4323-8, , 2776-08 ####[facility] LABORATORYCLIA [id number] [place] [address] [place] Urea nitrogen [Mass/Vol] 34 mg/dL High 9-24 [facility] Comment on above: Order Comment: Speci men Type: BLOOD SPECIMENOrdering Facility: [facility] Address: [address] [place] [address] Performed By: #### 2 4323-8, , 2776-08 ####[facility] LABORATORYCLIA [id number] [place] [address] [place] HISTORY PHYSICALon HISTORY PHYSICAL Normal [facility] Magnesium SerPl-mCncon 08-14 Magnesium [Mass/Vol] 2.0 mg/dL Normal 1.7-2.3 [facility] Comment on above: Order Comment: Speci men Type: BLOOD SPECIMENOrdering Facility: [facility] Address: [address] [place] [address] Performed By: #### 2 4323-8, 63588-2, 2776-08 ####[facility] LABORATORYCLIA [id number] [place] [address] [place] NURSING PROGon 08-14-2023 NURSING PROG [facility] NURSING PROG [facility] NURSING PROG [facility] NUTRITIONon 08-14-2023 NUTRITION Normal [facility] Phosphate SerPl-mCncon 08-14 Phosphate [Mass/Vol] 2.9 mg/dL Normal 2.7-4.8 [facility] Comment on above: Order Comment: Speci men Type: BLOOD SPECIMENOrdering Facility: [facility] Address: [place] [address] Performed By: #### 2 4323-8, , 2776-08 ####[facility] LABORATORYCLIA [id number] [place] [address] [facility] Upper GI endoscopyon 023 Upper GI endoscopy Normal [facility] XR ABDOMEN 1V SUPINEon 08-14 XR ABDOMEN 1V SUPINE [facility] XR ABDOMEN 1V SUPINE Normal [facility] ALLIED HEALTHon 08-13-2023 ALLIED HEALTH [facility] ANES POSTPROC EVALon 023 ANES POSTPROC EVAL [facility] ANES PRE-OPon 08-13-2023 ANES PRE-OP [facility] CASE MANAGEMon 08-13-2023 CASE MANAGEM [facility] CNPNon 08-13-2023 CNPN Telephone ([id number]) -- AISHA JULIEN ([id number]) 1955 M Date Time Provider Department 08/13/23 [place] [facility] [id number] During your visit today, we recorded the following information about you: Jessie Zamora, [place] 08/13/2023 10:25 AM Signed Call made to [facility] - patient employer to get [facility] paperwork for him. Left a VM with Kindra. Gave her cell number to call back and/or fax number to fax paperwork. Jessie Zamora RN 08/14/2023 9:14 AM Signed Kindra from [facility] returned call yesterday stating that she had [...] Allergies) Date Reviewed: 08/13/2023 Reviewed by: Génesis Moore RN - Fully Assessed Reason for Visit: [facility] Paperwork [6255] Prescriptions as of 08/14/2023 - PEPTAMEN 1.5 [...] NaCl 0.45% iv infusion - phenol 1 [place] ([facility]) - NaCl 0.9% iv flush bag [...] Status:Closed by JESSIE ZAMORA on 08/14/23 Normal [facility] CYTOLOGY NON-GYNon 3 ADEQUACY INTERPRETATION Normal [facility] Comment on above: Order Comment: Speci men Type: SPECIMEN OBTAINED BY ASPIRATIONOrdering Facility: [facility] Address: [address] [place] [address] Result Comment: A: # 1 Lymphoid sampleB: #1, 2 Lesional cells present. Monotonous cells could be low-grade neuroendocrine tumor.Dr. Dsouza / Richard Farrell letter in the above intra-procedural assessment refers to a unique site. The specific site is indicated in the final diagnosis portion of the report. Each number in this assessment references a discrete evaluation episode.Intra-procedural assessment performed at [facility], [address] [place] [address] Performed By: #### C ALIA ####[facility] LABORATORYCLIA [id number] [place] [address] [place] CASE REPORT Normal [facility] Comment on above: Order Comment: Speci men Type: SPECIMEN OBTAINED BY ASPIRATIONOrdering Facility: [facility] Address: [address] [place] [address] Result Comment: [facility] Cytology Report Case: [id number] Provider: Stephanie Avery MD Collected: 08/13/2023 11:22 AMOrdering Location: [facility] Received: 08/13/2023 12:00 PM Endoscopy - ENDOPathologist: Darrius Dsouza MDSpecimens: A) - LYMPH NODE FINE NEEDLE ASPIRATION, PORTAL LYMPH NODE B) - PANCREAS FINE NEEDLE ASPIRATION, UNCINATE PROCESS Performed By: #### C YTONON ####[facility]MAN LABORATORYCLIA [id number] [address] CLINICAL HISTORY Weight loss Normal [facility] Comment on above: Order Comment: Speci men Type: SPECIMEN OBTAINED BY ASPIRATIONOrdering Facility: [facility] Address: [address] [place] [address] Result Comment: Lupillo kenny outlet obstructionTachycardiaHypomagnesemiaAKI Performed By: #### C YTONON ####[facility] LABORATORYCLIA [id number] [address] DIAGNOSIS COMMENT Normal [facility] Comment on above: Order Comment: Speci men Type: SPECIMEN OBTAINED BY ASPIRATIONOrdering Facility: [facility] Address: [address] [place] [address] Result Comment: A. T he diagnostic neoplastic cells are predominantly found on the ThinPrep slide. The discrepancy between the RIVERA diagnosis of lymphoid sample and the final diagnosis was reported by secure staff message to Dr. Avery on 08/14/2023 at 1101.B. This part of the case was interpreted in conjunction with the related surgical pathology case [id number] with diagnostic concurrence. Performed By: #### C YTONON ####[facility] LABORATORYCLIA [id number] [address] FINAL DIAGNOSIS Normal [facility] Comment on above: Order Comment: Speci men Type: SPECIMEN OBTAINED BY ASPIRATIONOrdering Facility: [facility] Address: [address] [place] [address] Result Comment: A - LYMPH NODE FINE [...] Alcohol Fixed Performed By: #### C YTONON ####BOWMAN LABORATORYCLIA [id number] [place] [address] [place] [facility] FINAL PERFORMING LAB Normal [facility] Comment on above: Order Comment: Speci men Type: SPECIMEN OBTAINED BY ASPIRATIONOrdering Facility: [facility] Address: [address] [place] [address] Result Comment: Tech nical component, attraction attendant screening performed at [facility], [address] [place] [address] CLIA# [id number] interpretation performed at [facility], [address] [place] [address] CLIA# [id number] Director: Darrius Dsouza M.D. Performed By: #### C YTONON ####[facility] LABORATORYCLIA [id number] [address] STATES [facility] GROSS DESCRIPTION Normal [facility] Comment on above: Order Comment: Speci men Type: SPECIMEN OBTAINED BY ASPIRATIONOrdering Facility: [facility] Address: [address] [place] [address] Result Comment: A. L YMPH NODE FINE NEEDLE [id number] cc clear pink CytoLyt with scant particles. ThinPrep and Cell Block prepared and 2 smears (1 air dried and 1 fixed).B. PANCREAS FINE NEEDLE [id number] cc clear colorless CytoLyt with scant particles. ThinPrep and Cell Block prepared and 4 smears (2 air dried and 2 fixed). Performed By: #### C YTONON ####B[facility] LABORATORYCLIA [id number] [place] [address] [place] Comprehensive metabolic 2000 panelon 08-13-2023 Albumin [Mass/Vol] 3.8 g/dL Low 3.9-4.9 [facility] Comment on above: Order Comment: Speci men Type: BLOOD SPECIMENOrdering Facility: [facility] Address: [address] [place] [address] Performed By: #### 1 9123-9, 05125-5, 2777-1 ####[facility] LABORATORYCLIA [id number] [place] [address] [place] ALP [Catalytic activity/Vol] 128 U/L High 38-113 [facility] Comment on above: Order Comment: Speci men Type: BLOOD SPECIMENOrdering Facility: [facility] Address: [address] [place] [address] Performed By: #### 1 9123-9, 16674-1, 277- ####B[facility] LABORATORYCLIA [id number] [place] [address] [place] ALT [Catalytic activity/Vol] 19 U/L Normal 10-54 [facility] Comment on above: Order Comment: Speci men Type: BLOOD SPECIMENOrdering Facility: [facility] Address: [address] [place] [address] Performed By: #### 1 9123-9, 58784-5, 277- ####BOW[facility] LABORATORYCLIA [id number] [place] [address] [place] Anion gap [Moles/Vol] 12 mmol/L Normal 9-18 [facility] Comment on above: Order Comment: Speci men Type: BLOOD SPECIMENOrdering Facility: [facility] Address: [address] [place] [address] Performed By: #### 1 9123-9, 55555-7, 2777-1 ####[facility] LABORATORYCLIA [id number] [place] [address] [place] AST [Catalytic activity/Vol] 22 U/L Normal 14-40 [facility] Comment on above: Order Comment: Speci men Type: BLOOD SPECIMENOrdering Facility: [facility] Address: [address] [place] [address] Performed By: #### 1 9123-9, 38007-8, 2776- ####[facility] LABORATORYCLIA [id number] [place] [address] [place] Bilirubin [Mass/Vol] 1.0 mg/dL Normal 0.2-1.3 [facility] Comment on above: Order Comment: Speci men Type: BLOOD SPECIMENOrdering Facility: [facility] Address: [address] [place] [address] Performed By: #### 1 9123-9, 73466-1, 2776-08 ####[facility] LABORATORYCLIA [id number] [place] [address] [place] Calcium [Mass/Vol] 9.5 mg/dL Normal 8.5-10.2 [facility] Comment on above: Order Comment: Speci men Type: BLOOD SPECIMENOrdering Facility: [facility] Address: [address] [place] [address] Performed By: #### 1 91239, , 2776-08 ####[facility] LABORATORYCLIA [id number] [place] [address] [place] Chloride [Moles/Vol] 95 mmol/L Low 97-105 [facility] Comment on above: Order Comment: Speci men Type: BLOOD SPECIMENOrdering Facility: [facility] Address: [address] [place] [address] Performed By: #### 1 9123-9, , 2776-08 ####GE[facility] LABORATORYCLIA [id number] [place] [address] [place] CO2 [Moles/Vol] 29 mmol/L Normal 22-30 [facility] Comment on above: Order Comment: Speci men Type: BLOOD SPECIMENOrdering Facility: [facility] Address: [address] [place] [address] Performed By: #### 1 9123-9, , 2776- ####[facility] LABORATORYCLIA [id number] [place] [address] [place] Creatinine [Mass/Vol] 1.19 mg/dL Normal 0.73-1.22 [facility] Comment on above: Order Comment: Arben suarez Type: BLOOD SPECIMENOrdering Facility: [facility] Address: [address] [place] [address] Performed By: #### 1 9123-9, 09334-1, 2777-1 ####[facility] LABORATORYCLIA [id number] [place] [address] [place] Creatinine and Glomerular filtration rate.predicted panel (S/P/Bld) 67 mL/min/1.73m??? Normal >=60 [facility] Comment on above: Order Comment: Arben suarez Type: BLOOD SPECIMENOrdering Facility: [facility] Address: [address] [place] [address] Result Comment: Bailey mated Glomerular Filtration Rate [...] actual GFR. Performed By: #### 1 9123-9, 76208-8, 2777- ####[facility] LABORATORYCLIA [id number] [place] [address] [place] Glucose [Mass/Vol] 124 mg/dL High 74-99 [facility] Comment on above: Order Comment: Arben suarez Type: BLOOD SPECIMENOrdering Facility: [facility] Address: [place] [address] Result Comment: The [place] Diabetes Association (ADA) provides guidance for cutoff [...] Standards of Medical Care in Diabetes 2016, [place] [employer]. Diabetes Care. 2016.39(Suppl 1). Performed By: #### 1 9123-9, 30191-5, 2776-08 ####GE[facility] LABORATORYCLIA [id number] [place] [address] [place] Potassium [Moles/Vol] 3.5 mmol/L Low 3.7-5.1 [facility] Comment on above: Order Comment: Speci men Type: BLOOD SPECIMENOrdering Facility: [facility] Address: [address] [place] [address] Performed By: #### 1 9123-9, 84378-1, 2776-08 ####GE[facility] LABORATORYCLIA [id number] [place] [address] [place] Protein [Mass/Vol] 7.6 g/dL Normal 6.3-8.0 [facility] Comment on above: Order Comment: Speci men Type: BLOOD SPECIMENOrdering Facility: [facility] Address: [address] [place] [address] Performed By: #### 1 9123-9, , 2776-08 ####[facility] LABORATORYCLIA [id number] [place] [address] [place] Sodium [Moles/Vol] 136 mmol/L Normal 136-144 [facility] Comment on above: Order Comment: Speci men Type: BLOOD SPECIMENOrdering Facility: [facility] Address: [address] [place] [address] Performed By: #### 1 9123-9, , 2776-08 ####GE[facility] LABORATORYCLIA [id number] [place] [address] [place] Urea nitrogen [Mass/Vol] 37 mg/dL High 9-24 [facility] Comment on above: Order Comment: Speci men Type: BLOOD SPECIMENOrdering Facility: [facility] Address: [address] [place] [address] Performed By: #### 1 9123-9, 93465-2, 2776- ####GE[facility] LABORATORYCLIA [id number] [place] [address] [place] HISTORY PHYSICALon HISTORY PHYSICAL Normal [facility] Magnesium [facility] 08-13 Magnesium [Mass/Vol] 2.2 mg/dL Normal 1.7-2.3 [facility] Comment on above: Order Comment: Speci men Type: BLOOD SPECIMENOrdering Facility: [facility] Address: [address] [place] [address] Performed By: #### 1 9123-9, 37472-5, 2777-1 ####[facility] LABORATORYCLIA [id number] [place] [address] [place] NURSING PROGon 08-13-2023 NURSING PROG Normal [facility] NURSING PROG Normal [facility] NURSING PROG Normal [facility] NUTRITIONon 08-13-2023 NUTRITION Normal [facility]ate [facility] Phosphate [Mass/Vol] 3.2 mg/dL Normal 2.7-4.8 [facility] Comment on above: Order Comment: Speci men Type: BLOOD SPECIMENOrdering Facility: [facility] Address: [address] [place] [address] Performed By: #### 1 9123-9, 44629-3, 2777-1 ####[facility] LABORATORYCLIA [id number] [place] [address] [place] SURGICAL PATHOLOGYon 023 CASE REPORT Normal [facility] Comment on above: Order Comment: Speci men Type: TISSUE SPECIMENOrdering Facility: [facility] Address: [address] [place] [address] Result Comment: [facility] Pathology Report Case: [id number] Provider: Stephanie Avery MD Collected: 08/13/2023 11:14 AMOrdering Location: [facility] Received: 08/13/2023 01:36 PM Endoscopy - ENDOPathologist: Robby Jorgensen MD, PhDSpecimens: A) - PANCREAS BIOPSY, core needle biopsy of uncinate process to r/o neuro endocrine tumor B) - LYMPH NODE BIOPSY, core needle biopsy of portal lymph node Performed By: #### S ####[facility] LABCLIA [id number] [address] STATES [facility] DIAGNOSIS COMMENT Normal [facility] Comment on above: Order Comment: Speci men Type: TISSUE SPECIMENOrdering Facility: [facility] Address: [address] [place] [address] Result Comment: Manny romo Developed Test (LDT) Disclaimer:Performance characteristics of immunohistochemical, immunofluorescent and chromogenic in-situ hybridization tests have been determined by the performing laboratory within [facility]???s Andreas Granadoson license of [facility] Pathology and Laboratory Medicine [place] ([facility], [facility], [facility], [facility], [facility], or [facility]) in a manner consistent with CLIA requirements. One or more of these tests have not been cleared or approved by the FDA. RT[facility] is regulated under CLIA as qualified to perform high-complexity testing. These tests are used for clinical purposes. They should not be regarded as investigational or for research. Positive and negative controls stain appropriately. Performed By: #### S ####[facility] LABCLIA [id number] [address] FINAL DIAGNOSIS [facility] Comment on above: Order Comment: Speci men Type: TISSUE SPECIMENOrdering Facility: [facility] Address: [address] [place] [address] Result Comment: A. 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 Lymph node, biopsy:-Predominantly hemorrhage admixed with some lymphoid tissue and smooth muscle.-No evidence of neoplasm in this material. Performed By: #### S ####[facility] LABCLIA [id number] [place] [address] [facility] FINAL PERFORMING LAB [facility] Comment on above: Order Comment: Speci men Type: TISSUE SPECIMENOrdering Facility: [facility] Address: [address] [place] [address] Result Comment: Diag nostic interpretation performed at [facility], [address] [place] [address] CLIA# [id number] Director: Taras Treadwell M.D. Performed By: #### S ####[facility] LABIA [id number] [address] [place] GROSS DESCRIPTION Normal [facility] Comment on above: Order Comment: Speci men Type: TISSUE SPECIMENOrdering Facility: [facility] Address: [address] [place] [address] Result Comment: A. P ANCREAS BIOPSYReceived in [...] submitted in one cassette.Gross examination performed at [facility], [address] [place] [address].AMS August 13, 2023 6:15 PM Performed By: #### S ####[facility] LABIA [id number] [place] [address] [place] 08-13-2023 [place] Normal [facility] XR ABDOMEN 1V SUPINEon 08-13 XR ABDOMEN 1V SUPINE Normal [facility] Bilirub Conj SerPl-mCncon Bilirubin.conjugated [Mass/Vol] 0.4 mg/dL High <0.2 [facility] Comment on above: Order Comment: Speci men Type: BLOOD SPECIMENOrdering Facility: [facility] Address: [address] [place] [address] Performed By: #### 1 5152-2, 50393-2, 2571-8, 14574-8 ####[facility] LABORATORYCLIA [id number] [place] [address] [place] CASE MANAGEMon 08-12-2023 CASE MANAGEM Normal [facility] CBC panel Auto (Bld)on 08-12 Erythrocyte distribution width (RBC) [Ratio] 11.9 % Normal 11.5-15.0 [facility] Comment on above: Order Comment: Speci men Type: BLOOD SPECIMENOrdering Facility: [facility] Address: [address] [place] [address] Performed By: #### 5 8410-2 ####[facility] LABORATORYCLIA [id number] [address] STATES [facility] Hematocrit (Bld) [Volume fraction] 44.8 % Normal 39.0-51.0 [facility] Comment on above: Order Comment: Speci men Type: BLOOD SPECIMENOrdering Facility: [facility] Address: [address] [place] [address] Performed By: #### 5 8410-2 ####[facility] LABORATORYCLIA [id number] [place] [address] [place] Hemoglobin (Bld) [Mass/Vol] 14.9 g/dL Normal 13.0-17.0 [facility] Comment on above: Order Comment: Speci men Type: BLOOD SPECIMENOrdering Facility: [facility] Address: [address] [place] [address] Performed By: #### 5 8410-2 ####[facility] LABORATORYCLIA [id number] [place] [address] [place] MCH (RBC) [Entitic mass] 29.2 pg Normal 26.0-34.0 [facility] Comment on above: Order Comment: Speci men Type: BLOOD SPECIMENOrdering Facility: [facility] Address: [address] [place] [address] Performed By: #### 5 8410-2 ####[facility] LABORATORYCLIA [id number] [place] [address] [place] MCHC (RBC) [Mass/Vol] 33.3 g/dL Normal 30.5-36.0 [facility] Comment on above: Order Comment: Speci men Type: BLOOD SPECIMENOrdering Facility: [facility] Address: [address] [place] [address] Performed By: #### 5 8410-2 ####[facility] LABORATORYCLIA [id number] [place] [address] [place] MCV (RBC) [Entitic vol] 87.7 fL Normal 80.0-100.0 [facility] Comment on above: Order Comment: Speci men Type: BLOOD SPECIMENOrdering Facility: [facility] Address: [address] [place] [address] Performed By: #### 5 8410-2 ####[facility] LABORATORYCLIA [id number] [place] [address] [place] Nucleated RBC (Bld) [#/Vol] 10*3/uL Normal <0.01 [facility] Comment on above: Order Comment: Speci men Type: BLOOD SPECIMENOrdering Facility: [facility] Address: [address] [place] [address] Performed By: #### 5 8410-2 ####[facility] LABORATORYCLIA [id number] [place] [address] [place] Platelet mean volume (Bld) [Entitic vol] 11.2 fL Normal 9.0-12.7 [facility] Comment on above: Order Comment: Speci men Type: BLOOD SPECIMENOrdering Facility: [facility] Address: [address] [place] [address] Performed By: #### 5 8410-2 ####[facility] LABORATORYCLIA [id number] [place] [address] [place] Platelets (Bld) [#/Vol] 273 10*3/uL Normal 150-400 [facility] Comment on above: Order Comment: Speci men Type: BLOOD SPECIMENOrdering Facility: [facility] Address: [address] [place] [address] Performed By: #### 5 8410-2 ####[facility] LABORATORYCLIA [id number] [place] [address] [place] RBC (Bld) [#/Vol] 5.11 10*6/uL Normal 4.20-6.00 [facility] Comment on above: Order Comment: Speci men Type: BLOOD SPECIMENOrdering Facility: [facility] Address: [address] [place] [address] Performed By: #### 5 8410-2 ####[facility] LABORATORYCLIA [id number] [place] [address] [place] WBC (Bld) [#/Vol] 11.13 10*3/uL High 3.70-11.00 [facility] Comment on above: Order Comment: Speci men Type: BLOOD SPECIMENOrdering Facility: [facility] Address: [address] [place] [address] Performed By: #### 5 8410-2 ####[facility] LABORATORYCLIA [id number] [place] [address] [place] Comprehensive metabolic 2000 panelon 08-12-2023 Albumin [Mass/Vol] 3.7 g/dL Low 3.9-4.9 [facility] Comment on above: Order Comment: Speci men Type: BLOOD SPECIMENOrdering Facility: [facility] Address: [address] [place] [address] Performed By: #### 1 5152-2, 19053-9, 8, 96765-5 ####[facility] LABORATORYCLIA [id number] [place] [address] [place] ALP [Catalytic activity/Vol] 124 U/L High 38-113 [facility] Comment on above: Order Comment: Speci men Type: BLOOD SPECIMENOrdering Facility: [facility] Address: [address] [place] [address] Performed By: #### 1 5152-2, 47001-2, 2570-8, 09811-6 ####[facility] LABORATORYCLIA [id number] [place] [address] [place] ALT [Catalytic activity/Vol] 19 U/L Normal 10-54 [facility] Comment on above: Order Comment: Speci men Type: BLOOD SPECIMENOrdering Facility: [facility] Address: [address] [place] [address] Performed By: #### 1 5152-2, 74216-1, 2571-8, 61111-5 ####[facility] LABORATORYCLIA [id number] [place] [address] [place] Anion gap [Moles/Vol] 15 mmol/L Normal 9-18 [facility] Comment on above: Order Comment: Speci men Type: BLOOD SPECIMENOrdering Facility: [facility] Address: [address] [place] [address] Performed By: #### 1 5152-2, 01413-3, 2570-8, 81372-7 ####[facility] LABORATORYCLIA [id number] [place] [address] [place] AST [Catalytic activity/Vol] 22 U/L Normal 14-40 [facility] Comment on above: Order Comment: Speci men Type: BLOOD SPECIMENOrdering Facility: [facility] Address: [address] [place] [address] Performed By: #### 1 5152-2, 47706-6, 2570-8, 72892-5 ####[facility] LABORATORYCLIA [id number] [place] [address] [place] Bilirubin [Mass/Vol] 1.1 mg/dL Normal 0.2-1.3 [facility] Comment on above: Order Comment: Speci men Type: BLOOD SPECIMENOrdering Facility: [facility] Address: [address] [place] [address] Performed By: #### 1 5152-2, 59833-6, 2570-8, 36035-8 ####[facility] LABORATORYCLIA [id number] [place] [address] [place] Calcium [Mass/Vol] 9.6 mg/dL Normal 8.5-10.2 [facility] Comment on above: Order Comment: Speci men Type: BLOOD SPECIMENOrdering Facility: [facility] Address: [address] [place] [address] Performed By: #### 1 5152-2, 25092-7, 2570-8, 56176-5 ####[facility] LABORATORYCLIA [id number] [place] [address] [place] Chloride [Moles/Vol] 96 mmol/L Low 97-105 [facility] Comment on above: Order Comment: Speci men Type: BLOOD SPECIMENOrdering Facility: [facility] Address: [address] [place] [address] Performed By: #### 1 5152-2, 66971-8, 2570-8, 78820-7 ####[facility] LABORATORYCLIA [id number] [place] [address] [place] CO2 [Moles/Vol] 26 mmol/L Normal 22-30 [facility] [facility] Comment on above: Order Comment: Speci men Type: BLOOD SPECIMENOrdering Facility: [facility] Address: [address] [place] [address] Performed By: #### 1 5152-2, 71226-2, 2570-8, 55438-9 ####[facility] LABORATORYCLIA [id number] [place] [address] [place] Creatinine [Mass/Vol] 1.28 mg/dL High 0.73-1.22 [facility] Comment on above: Order Comment: Speci men Type: BLOOD SPECIMENOrdering Facility: [facility] Address: [address] [place] [address] Performed By: #### 1 5152-2, 45754-0, 8, 54768-9 ####BOWMAN LABORATORYCLIA [id number] [place] [address] [place] Creatinine and Glomerular filtration rate.predicted panel (S/P/Bld) 61 mL/min/1.73m??? Normal >=60 [facility] Comment on above: Order Comment: Speci men Type: BLOOD SPECIMENOrdering Facility: [facility] Address: [address] [place] [address] Result Comment: Bailey mated Glomerular Filtration Rate [...] actual GFR. Performed By: #### 1 5152-2, , 2571-03, ####GE[facility] LABORATORYCLIA [id number] [place] [address] [place] Glucose [Mass/Vol] 110 mg/dL High 74-99 [facility] Comment on above: Order Comment: Arben suarez Type: BLOOD SPECIMENOrdering Facility: [facility] Address: [address] [place] [address] Result Comment: The [place] Diabetes Association (ADA) provides guidance for cutoff [...] Standards of Medical Care in Diabetes 2016, [place] [employer]. Diabetes Care. 2016.39(Suppl 1). Performed By: #### 1 5152-2, , 2571-03, ####GEOVANNA LABORATORYCLIA [id number] [place] [address] [place] Potassium [Moles/Vol] 3.7 mmol/L Normal 3.7-5.1 [facility] Comment on above: Order Comment: Arben suarez Type: BLOOD SPECIMENOrdering Facility: [facility] Address: [address] [place] [address] Performed By: #### 1 5152-2, , 2571-03, ####GEOVANNA LABORATORYCLIA [id number] [place] [address] [place] Protein [Mass/Vol] 7.8 g/dL Normal 6.3-8.0 [facility] Comment on above: Order Comment: Speci men Type: BLOOD SPECIMENOrdering Facility: [facility] Address: [address] [place] [address] Performed By: #### 1 5152-2, 53733-1, 8, 47618-2 ####GEOVANNA LABORATORYCLIA [id number] [place] [address] [place] Sodium [Moles/Vol] 137 mmol/L Normal 136-144 [facility] Comment on above: Order Comment: Speci men Type: BLOOD SPECIMENOrdering Facility: [facility] Address: [address] [place] [address] Performed By: #### 1 5152-2, , 2571-03, ####BOWMAN LABORATORYCLIA [id number] [place] [address] [place] Urea nitrogen [Mass/Vol] 35 mg/dL High 9-24 [facility] Comment on above: Order Comment: Speci men Type: BLOOD SPECIMENOrdering Facility: [facility] Address: [address] [place] [address] Performed By: #### 1 5152-2, 34740-2, 8, ####BOWMAN LABORATORYCLIA [id number] [place] [address] [place] Magnesium SerPl-mCncon 08-12 Magnesium [Mass/Vol] 2.1 mg/dL Normal 1.7-2.3 [facility] Comment on above: Order Comment: Speci men Type: BLOOD SPECIMENOrdering Facility: [facility] Address: [address] [place], [place] [address] Performed By: #### 1 5152-2, 64189-7, 2571-03, 92676-0 ####BOWMAN LABORATORYCLIA [id number] [place] [address] [place] NURSING PROGon 08-12-2023 NURSING PROG Normal [facility] NUTRITIONon 08-12-2023 NUTRITION Normal [facility] Phosphate SerPl-mCncon 08-12 Phosphate [Mass/Vol] 3.2 mg/dL Normal 2.7-4.8 [facility] Comment on above: Order Comment: Speci men Type: BLOOD SPECIMENOrdering Facility: [facility] Address: [place] [address] Performed By: #### 2 777-1 ####BOWMAN LABORATORYCLIA [id number] [place] [address] [facility] Trigl SerPl-mCncon Triglyceride [Mass/Vol] 69 mg/dL Normal <150 [facility] Comment on above: Order Comment: Speci men Type: BLOOD SPECIMENOrdering Facility: [facility] Address: [place] [address] Result Comment: <150 mg/dL, Normal 150-199 mg/dL, Borderline high 200-499 mg/dL, High>499 mg/dL, Very highReference:1. National Cholesterol Education Program ATP III Guideline At-A-Glance Quick Desk Reference: National Heart, Lung, and Blood [place]. National Institutes of Health. 2001: NIH Publication No. 01-3305. Performed By: #### 1 5152-2, 48592-1, 2571-8, 12725-0 ####BOWMAN LABORATORYCLIA [id number] [place] [address] [facility] Triglyceride [Mass/Vol]on FASTING TIME 0 hrs Normal [facility] Comment on above: Order Comment: Speci men Type: BLOOD SPECIMENOrdering Facility: [facility] Address: [place] [address] Performed By: #### 1 5152-2, 73519-9, 2571-8, 17276-5 ####BOWMAN LABORATORYCLIA [id number] [place] [address] [facility] [place] CASE MANAGEMon 08-11-2023 CASE MANAGEM Normal [facility] CRP SerPl-mCncon 08-11-2023 CRP [Mass/Vol] 4.0 mg/dL High <0.9 [facility] Comment on above: Order Comment: Speci men Type: BLOOD SPECIMENOrdering Facility: [facility] Address: [place] [address] Performed By: #### 2 8, 1987-12, 2776-08, ####GEOVANNA LABORATORYCLIA [id number] [place] [address] [place] Comprehensive metabolic 2000 panelon 08-11-2023 Albumin [Mass/Vol] 3.8 g/dL Low 3.9-4.9 [facility] Comment on above: Order Comment: Speci men Type: BLOOD SPECIMENOrdering Facility: [facility] Address: [address] [place] [address] Performed By: #### 2 8, 1987-12, 2776-08, ####[facility] LABORATORYCLIA [id number] [place] [address] [place] ALP [Catalytic activity/Vol] 107 U/L Normal 38-113 [facility] Comment on above: Order Comment: Speci men Type: BLOOD SPECIMENOrdering Facility: [facility] Address: [address] [place] [address] Performed By: #### 2 4323-03, 1987-12, 2776-08, ####[facility] LABORATORYCLIA [id number] [place] [address] [place] ALT [Catalytic activity/Vol] 17 U/L Normal 10-54 [facility] Comment on above: Order Comment: Speci men Type: BLOOD SPECIMENOrdering Facility: [facility] Address: [address] [place] [address] Performed By: #### 2 4323-03, 1987-12, 2776-08, ####[facility] LABORATORYCLIA [id number] [place] [address] [place] Anion gap [Moles/Vol] 16 mmol/L Normal 9-18 [facility] Comment on above: Order Comment: Speci men Type: BLOOD SPECIMENOrdering Facility: [facility] Address: [address] [place] [address] Performed By: #### 2 8, 1987-12, 2776-08, ####[facility] LABORATORYCLIA [id number] [place] [address] [place] AST [Catalytic activity/Vol] 15 U/L Normal 14-40 [facility] Comment on above: Order Comment: Speci men Type: BLOOD SPECIMENOrdering Facility: [facility] Address: [address] [place] [address] Performed By: #### 2 4323-8, 1987-12, 2776-08, ####[facility] LABORATORYCLIA [id number] [place] [address] [place] Bilirubin [Mass/Vol] 1.0 mg/dL Normal 0.2-1.3 [facility] Comment on above: Order Comment: Speci men Type: BLOOD SPECIMENOrdering Facility: [facility] Address: [address] [place] [address] Performed By: #### 2 4328, 1987-12, 2776-08, ####BOWMAN LABORATORYCLIA [id number] [place] [address] [place] Calcium [Mass/Vol] 9.4 mg/dL Normal 8.5-10.2 [facility] Comment on above: Order Comment: Speci men Type: BLOOD SPECIMENOrdering Facility: [facility] Address: [address] [place] [address] Performed By: #### 2 4323-8, 1987-12, 2776-08, ####BOWMAN LABORATORYCLIA [id number] [place] [address] [place] Chloride [Moles/Vol] 100 mmol/L Normal 97-105 [facility] Comment on above: Order Comment: Speci men Type: BLOOD SPECIMENOrdering Facility: [facility] Address: [address] [place] [address] Performed By: #### 2 4323-8, 1987-12, 2776-08, ####[facility] LABORATORYCLIA [id number] [place] [address] [place] CO2 [Moles/Vol] 25 mmol/L Normal 22-30 [facility] Comment on above: Order Comment: Speci men Type: BLOOD SPECIMENOrdering Facility: [facility] Address: [address] [place] [address] Performed By: #### 2 4323-8, 1987-12, 2776-08, ####BOW[facility] LABORATORYCLIA [id number] [place] [address] [place] Creatinine [Mass/Vol] 1.38 mg/dL High 0.73-1.22 [facility] Comment on above: Order Comment: Speci men Type: BLOOD SPECIMENOrdering Facility: [facility] Address: [address] [place] [address] Performed By: #### 2 4323-8, 1987-12, 2776-08, ####BOW[facility] LABORATORYCLIA [id number] [place] [address] [place] Creatinine and Glomerular filtration rate.predicted panel (S/P/Bld) 56 mL/min/1.73m??? Low >=60 [facility] Comment on above: Order Comment: Arben [facility] Type: BLOOD SPECIMENOrdering Facility: [facility] Address: [address] [place] [address] Result Comment: Bailey mated Glomerular Filtration Rate [...] Performed By: #### 2 4323-8, 1987-12, 2776-08, ####BOWMAN LABORATORYCLIA [id number] [place] [address] [place] Glucose [Mass/Vol] 123 mg/dL High 74-99 [facility] Comment on above: Order Comment: Speci daniela Type: BLOOD SPECIMENOrdering Facility: [facility] Address: [address] [place] [address] Result Comment: The [place] Diabetes Association (ADA) provides guidance for cutoff [...] Standards of Medical Care in Diabetes 2016, [place] [employer]. Diabetes Care. 2016.39(Suppl 1). Performed By: #### 2 43210-30, 1987-12, 2776-08, ####GEOVANNA LABORATORYCLIA [id number] [place] [address] [place] Potassium [Moles/Vol] 3.3 mmol/L Low 3.7-5.1 [facility] Comment on above: Order Comment: Speci men Type: BLOOD SPECIMENOrdering Facility: [facility] Address: [address] [place] [address] Performed By: #### 2 4323-03, 1987-12, 2776-08, ####[facility] LABORATORYCLIA [id number] [place] [address] [place] Protein [Mass/Vol] 7.5 g/dL Normal 6.3-8.0 [facility] Comment on above: Order Comment: Speci men Type: BLOOD SPECIMENOrdering Facility: [facility] Address: [address] [place] [address] Performed By: #### 2 4323-03, 1987-12, 2776-08, ####[facility] LABORATORYCLIA [id number] [place] [address] [place] Sodium [Moles/Vol] 141 mmol/L Normal 136-144 [facility] Comment on above: Order Comment: Speci men Type: BLOOD SPECIMENOrdering Facility: [facility] Address: [address] [place] [address] Performed By: #### 2 4323-03, 1987-12, 2776-08, ####BOWMAN LABORATORYCLIA [id number] [place] [address] [place] Urea nitrogen [Mass/Vol] 32 mg/dL High 9-24 [facility] Comment on above: Order Comment: Speci men Type: BLOOD SPECIMENOrdering Facility: [facility] Address: [address] [place] [id number] Performed By: #### 2 4328, 1987-12, 2776-08, ####BOWMAN LABORATORYCLIA [id number] [place] [address] [place] Magnesium [facility] Magnesium [Mass/Vol] 2.1 mg/dL Normal 1.7-2.3 [facility] Comment on above: Order Comment: Speci men Type: BLOOD SPECIMENOrdering Facility: [facility] Address: [place] [address] Performed By: #### 2 4323-03, 1987-12, 2776-08, ####BOWMAN LABORATORYCLIA [id number] [place] [address] [place] NUTRITIONon 08-11-2023 NUTRITION Normal [facility] Phosphate SerPl-mCncon 08-11 Phosphate [Mass/Vol] 3.9 mg/dL Normal 2.7-4.8 [facility] Comment on above: Order Comment: Speci men Type: BLOOD SPECIMENOrdering Facility: [facility] Address: [address] [place] [id number] Performed By: #### 2 4328, 1987-12, 2776-08, ####BOWMAN LABORATORYCLIA [id number] [place] [address] [place] CBC W Auto Differential pane l (Bld)on 08-10-2023 Basophils (Bld) [#/Vol] 0.04 10*3/uL Normal <0.11 [facility] Comment on above: Order Comment: Speci men Type: BLOOD SPECIMENOrdering Facility: [facility] Address: [place] [address] Performed By: #### 5 7021-8 ####[facility] LABORATORYCLIA [id number] [place] [address] [place] Basophils/100 WBC (Bld) 0.4 % Normal [facility] Comment on above: Order Comment: Speci men Type: BLOOD SPECIMENOrdering Facility: [facility] Address: [address] [place] [address] Performed By: #### 5 7021-8 ####[facility] LABORATORYCLIA [id number] [address] [place] Differential cell count method Nom (Bld) Auto Normal [facility] Comment on above: Order Comment: Speci men Type: BLOOD SPECIMENOrdering Facility: [facility] Address: [address] [place] [address] Performed By: #### 5 7021-8 ####[facility] LABORATORYCLIA [id number] [place] [address] [place] Eosinophils (Bld) [#/Vol] 0.21 10*3/uL Normal <0.46 [facility] Comment on above: Order Comment: Speci men Type: BLOOD SPECIMENOrdering Facility: [facility] Address: [address] [place] [address] Performed By: #### 5 7021-8 ####[facility] LABORATORYCLIA [id number] [address] Eosinophils/100 WBC (Bld) 1.9 % Normal [facility] Comment on above: Order Comment: Speci men Type: BLOOD SPECIMENOrdering Facility: [facility] Address: [address] [place] [address] Performed By: #### 5 7021-8 ####[facility] LABORATORYCLIA [id number] [address] [place] Erythrocyte distribution width (RBC) [Ratio] 12.1 % Normal 11.5-15.0 [facility] Comment on above: Order Comment: Speci men Type: BLOOD SPECIMENOrdering Facility: [facility] Address: [address] [place] [address] Performed By: #### 5 7021-8 ####[facility] LABORATORYCLIA [id number] [place] [address] [place] Hematocrit (Bld) [Volume fraction] 41.9 % Normal 39.0-51.0 [facility] Comment on above: Order Comment: Speci men Type: BLOOD SPECIMENOrdering Facility: [facility] Address: [address] [place] [address] Performed By: #### 5 7021-8 ####[facility] LABORATORYCLIA [id number] [place] [address] [place] Hemoglobin (Bld) [Mass/Vol] 14.3 g/dL Normal 13.0-17.0 [facility] Comment on above: Order Comment: Speci men Type: BLOOD SPECIMENOrdering Facility: [facility] Address: [address] [place] [address] Performed By: #### 5 7021-8 ####[facility] LABORATORYCLIA [id number] [place] [address] [place] Immature granulocytes (Bld) [#/Vol] 0.05 10*3/uL Normal <0.10 [facility] Comment on above: Order Comment: Speci men Type: BLOOD SPECIMENOrdering Facility: [facility] Address: [address] [place] [address] Performed By: #### 5 7021-8 ####[facility] LABORATORYCLIA [id number] [place] [address] [place] Immature granulocytes/100 WBC (Bld) 0.4 % Normal [facility] Comment on above: Order Comment: Speci men Type: BLOOD SPECIMENOrdering Facility: [facility] Address: [address] [place] [address] Performed By: #### 5 7021-8 ####[facility] LABORATORYCLIA [id number] [place] [address] [place] Lymphocytes (Bld) [#/Vol] 0.93 10*3/uL Low 1.00-4.00 [facility] Comment on above: Order Comment: Speci men Type: BLOOD SPECIMENOrdering Facility: [facility] Address: [address] [place] [address] Performed By: #### 5 7021-8 ####[facility] LABORATORYCLIA [id number] [place] [address] [place] Lymphocytes/100 WBC (Bld) 8.4 % Normal [facility] Comment on above: Order Comment: Speci men Type: BLOOD SPECIMENOrdering Facility: [facility] Address: [address] [place] [address] Performed By: #### 5 7021-8 ####[facility] LABORATORYCLIA [id number] [place] [address] [place] MCH (RBC) [Entitic mass] 29.9 pg Normal 26.0-34.0 [facility] Comment on above: Order Comment: Speci men Type: BLOOD SPECIMENOrdering Facility: [facility] Address: [address] [place] [address] Performed By: #### 5 7021-8 ####[facility] LABORATORYCLIA [id number] [address] [place] MCHC (RBC) [Mass/Vol] 34.1 g/dL Normal 30.5-36.0 [facility] Comment on above: Order Comment: Speci men Type: BLOOD SPECIMENOrdering Facility: [facility] Address: [address] [place] [address] Performed By: #### 5 7021-8 ####[facility] LABORATORYCLIA [id number] [address] [place] MCV (RBC) [Entitic vol] 87.7 fL Normal 80.0-100.0 [facility] Comment on above: Order Comment: Speci men Type: BLOOD SPECIMENOrdering Facility: [facility] Address: [address] [place] [address] Performed By: #### 5 7021-8 ####[facility] LABORATORYCLIA [id number] [place] [address] [place] Monocytes (Bld) [#/Vol] 1.28 10*3/uL High <0.87 [facility] Comment on above: Order Comment: Speci men Type: BLOOD SPECIMENOrdering Facility: [facility] Address: [address] [place] [address] Performed By: #### 5 7021-8 ####[facility] LABORATORYCLIA [id number] [place] [address] [place] Monocytes/100 WBC (Bld) 11.5 % Normal [facility] Comment on above: Order Comment: Speci men Type: BLOOD SPECIMENOrdering Facility: [facility] Address: [address] [place] [address] Performed By: #### 5 7021-8 ####[facility] LABORATORYCLIA [id number] [place] [address] [place] Neutrophils (Bld) [#/Vol] 8.62 10*3/uL High 1.45-7.50 [facility] Comment on above: Order Comment: Speci men Type: BLOOD SPECIMENOrdering Facility: [facility] Address: [address] [place] [address] Performed By: #### 5 7021-8 ####[facility] LABORATORYCLIA [id number] [place] [address] [place] Neutrophils/100 WBC (Bld) 77.4 % Normal [facility] Comment on above: Order Comment: Speci men Type: BLOOD SPECIMENOrdering Facility: [facility] Address: [address] [place] [address] Performed By: #### 5 7021-8 ####[facility] LABORATORYCLIA [id number] [place] [address] [place] Nucleated RBC (Bld) [#/Vol] 10*3/uL Normal <0.01 [facility] Comment on above: Order Comment: Speci men Type: BLOOD SPECIMENOrdering Facility: [facility] Address: [address] [place] [address] Performed By: #### 5 7021-8 ####[facility] LABORATORYCLIA [id number] [place] [address] [place] Nucleated RBC/100 WBC (Bld) [Ratio] 0.0 /100 WBC Normal [facility] Comment on above: Order Comment: Speci men Type: BLOOD SPECIMENOrdering Facility: [facility] Address: [address] [place] [address] Performed By: #### 5 7021-8 ####[facility] LABORATORYCLIA [id number] [place] [address] [place] Platelet mean volume (Bld) [Entitic vol] 11.5 fL Normal 9.0-12.7 [facility] Comment on above: Order Comment: Speci men Type: BLOOD SPECIMENOrdering Facility: [facility] Address: [address] [place] [address] Performed By: #### 5 7021-8 ####[facility] LABORATORYCLIA [id number] [place] [address] [place] Platelets (Bld) [#/Vol] 285 10*3/uL Normal 150-400 [facility] Comment on above: Order Comment: Speci men Type: BLOOD SPECIMENOrdering Facility: [facility] Address: [address] [place] [address] Performed By: #### 5 7021-8 ####[facility] LABORATORYCLIA [id number] [place] [address] [place] RBC (Bld) [#/Vol] 4.78 10*6/uL Normal 4.20-6.00 [facility] Comment on above: Order Comment: Speci men Type: BLOOD SPECIMENOrdering Facility: [facility] Address: [address] [place] [address] Performed By: #### 5 7021-8 ####[facility] LABORATORYCLIA [id number] [place] [address] [place] WBC (Bld) [#/Vol] 11.13 10*3/uL High 3.70-11.00 [facility] Comment on above: Order Comment: Speci men Type: BLOOD SPECIMENOrdering Facility: [facility] Address: [address] [place] [address] Performed By: #### 5 7021-8 ####[facility] LABORATORYCLIA [id number] [place] [address] [facility] [place] Comprehensive metabolic 2000 panelon 08-10-2023 Albumin [Mass/Vol] 4.0 g/dL Normal 3.9-4.9 [facility] Comment on above: Order Comment: Speci men Type: BLOOD SPECIMENOrdering Facility: [facility] Address: [address] [place] [address] Performed By: #### 2 4323-8, 08639-2, 2776-08 ####[facility] LABORATORYCLIA [id number] [place] [address] [place] ALP [Catalytic activity/Vol] 111 U/L Normal 38-113 [facility] Comment on above: Order Comment: Speci men Type: BLOOD SPECIMENOrdering Facility: [facility] Address: [place] [address] Performed By: #### 2 4323-8, , 2776-08 ####[facility] LABORATORYCLIA [id number] [place] [id number] [place] ALT [Catalytic activity/Vol] 21 U/L Normal 10-54 [facility] Comment on above: Order Comment: Speci men Type: BLOOD SPECIMENOrdering Facility: [facility] Address: [address] [place] [address] Performed By: #### 2 4323-8, , 2776-08 ####[facility] LABORATORYCLIA [id number] [place] [id number] [place] Anion gap [Moles/Vol] 15 mmol/L Normal 9-18 [facility] Comment on above: Order Comment: Speci men Type: BLOOD SPECIMENOrdering Facility: [facility] Address: [address] [place] [address] Performed By: #### 2 4323-8, , 2776- ####[facility] LABORATORYCLIA [id number] [place] [id number] [place] AST [Catalytic activity/Vol] 16 U/L Normal 14-40 [facility] Comment on above: Order Comment: Speci men Type: BLOOD SPECIMENOrdering Facility: [facility] Address: [address] [place] [address] Performed By: #### 2 4323-8, , 2776-08 ####[facility] LABORATORYCLIA [id number] [place] [address] [place] Bilirubin [Mass/Vol] 0.7 mg/dL Normal 0.2-1.3 [facility] Comment on above: Order Comment: Speci men Type: BLOOD SPECIMENOrdering Facility: [facility] Address: [address] [place] [address] Performed By: #### 2 432-8, , 2776-08 ####[facility] LABORATORYCLIA [id number] [place] [id number] [place] Calcium [Mass/Vol] 9.3 mg/dL Normal 8.5-10.2 [facility] Comment on above: Order Comment: Speci men Type: BLOOD SPECIMENOrdering Facility: [facility] Address: [address] [place] [address] Performed By: #### 2 4328, , 2776-08 ####[facility] LABORATORYCLIA [id number] [place] [id number] [place] Chloride [Moles/Vol] 100 mmol/L Normal 97-105 [facility] Comment on above: Order Comment: Speci men Type: BLOOD SPECIMENOrdering Facility: [facility] Address: [address] [place] [address] Performed By: #### 2 4323-8, , 2776-08 ####[facility] LABORATORYCLIA [id number] [place] [id number] [place] CO2 [Moles/Vol] 25 mmol/L Normal 22-30 [facility] Comment on above: Order Comment: Speci men Type: BLOOD SPECIMENOrdering Facility: [facility] Address: [address] [place] [address] Performed By: #### 2 4323-8, , 2776-08 ####[facility] LABORATORYCLIA [id number] [place] [id number] [place] Creatinine [Mass/Vol] 1.34 mg/dL High 0.73-1.22 [facility] Comment on above: Order Comment: Arben suarez Type: BLOOD SPECIMENOrdering Facility: [facility] Address: [address] [facility] [place] [address] Performed By: #### 2 4323-8, 31514-1, 2776-08 ####[facility] LABORATORYCLIA [id number] [place] [id number] [place] Creatinine and Glomerular filtration rate.predicted panel (S/P/Bld) 58 mL/min/1.73m??? Low >=60 [facility] Comment on above: Order Comment: Arben suarez Type: BLOOD SPECIMENOrdering Facility: [facility] Address: [address] [place] [address] Result Comment: Bailey mated Glomerular Filtration Rate [...] #### 2 4323-8, , 2776-08 ####[facility] LABORATORYCLIA [id number] [place] [address] [place] Glucose [Mass/Vol] 105 mg/dL High 74-99 [facility] Comment on above: Order Comment: Arben suarez Type: BLOOD SPECIMENOrdering Facility: [facility] Address: [address] [place] [address] Result Comment: The [place] Diabetes Association (ADA) provides guidance for cutoff [...] Standards of Medical Care in Diabetes 2016, [place] [employer]. Diabetes Care. 2016.39(Suppl 1). Performed By: #### 2 4323-8, , 2776-08 ####[facility] LABORATORYCLIA [id number] [place] [address] [place] Potassium [Moles/Vol] 3.6 mmol/L Low 3.7-5.1 [facility] Comment on above: Order Comment: Speci men Type: BLOOD SPECIMENOrdering Facility: [facility] Address: [address] [place] [address] Performed By: #### 2 4323-8, , 2776-08 ####[facility] LABORATORYCLIA [id number] [place] [id number] [place] Protein [Mass/Vol] 7.5 g/dL Normal 6.3-8.0 [facility] Comment on above: Order Comment: Speci men Type: BLOOD SPECIMENOrdering Facility: [facility] Address: [address] [place] [address] Performed By: #### 2 4323-8, , 2776-08 ####[facility] LABORATORYCLIA [id number] [place] [id number] [place] Sodium [Moles/Vol] 140 mmol/L Normal 136-144 [facility] Comment on above: Order Comment: Speci men Type: BLOOD SPECIMENOrdering Facility: [facility] Address: [address] [place] [address] Performed By: #### 2 4323-8, , 2776-08 ####[facility] LABORATORYCLIA [id number] [place] [address] [place] Urea nitrogen [Mass/Vol] 28 mg/dL High 9-24 [facility] Comment on above: Order Comment: Speci men Type: BLOOD SPECIMENOrdering Facility: [facility] Address: [address] [place] [address] Performed By: #### 2 4323-8, , 2776-08 ####[facility] LABORATORYCLIA [id number] [place] [address] [place] [facility] Magnesium [Mass/Vol] 2.0 mg/dL Normal 1.7-2.3 [facility] Comment on above: Order Comment: Speci men Type: BLOOD SPECIMENOrdering Facility: [facility] Address: [address] [place] [address] Performed By: #### 2 4323-8, , 2777 ####[facility] LABORATORYCLIA [id number] [place] [id number] [place] NURSING PROGon 08-10-2023 NURSING PROG Normal [facility] Phosphate SerPl-mCncon 08-10 Phosphate [Mass/Vol] 3.9 mg/dL Normal 2.7-4.8 [facility] Comment on above: Order Comment: Speci men Type: BLOOD SPECIMENOrdering Facility: [facility] Address: [address] [place] [address] Performed By: #### 2 4323-8, , 2777- ####[facility] LABORATORYCLIA [id number] [place] [id number] [place] CBC W Auto Differential pane l (Bld)on 08-09-2023 Basophils (Bld) [#/Vol] 0.06 10*3/uL Normal <0.11 [facility] Comment on above: Order Comment: Speci men Type: BLOOD SPECIMENOrdering Facility: [facility] Address: [address] [place] [address] Performed By: #### 5 7021-8 ####[facility] LABORATORYCLIA [id number] [place] [id number] [place] Basophils/100 WBC (Bld) 0.6 % Normal [facility] Comment on above: Order Comment: Speci men Type: BLOOD SPECIMENOrdering Facility: [facility] Address: [address] [place] [address] Performed By: #### 5 7021-8 ####[facility] LABORATORYCLIA [id number] [address] Differential cell count method Nom (Bld) Auto Normal [facility] Comment on above: Order Comment: Speci men Type: BLOOD SPECIMENOrdering Facility: [facility] Address: [address] [place] [address] Performed By: #### 5 7021-8 ####[facility] LABORATORYCLIA [id number] [place] [address] [place] Eosinophils (Bld) [#/Vol] 0.28 10*3/uL Normal <0.46 [facility] Comment on above: Order Comment: Speci men Type: BLOOD SPECIMENOrdering Facility: [facility] Address: [address] [place] [address] Performed By: #### 5 7021-8 ####[facility] LABORATORYCLIA [id number] [address] Eosinophils/100 WBC (Bld) 2.9 % Normal [facility] Comment on above: Order Comment: Speci men Type: BLOOD SPECIMENOrdering Facility: [facility] Address: [address] [place] [address] Performed By: #### 5 7021-8 ####[facility] LABORATORYCLIA [id number] [address] [place] Erythrocyte distribution width (RBC) [Ratio] 11.9 % Normal 11.5-15.0 [facility] Comment on above: Order Comment: Speci men Type: BLOOD SPECIMENOrdering Facility: [facility] Address: [address] [place] [address] Performed By: #### 5 7021-8 ####[facility] LABORATORYCLIA [id number] [address] STATES [facility] Hematocrit (Bld) [Volume fraction] 38.0 % Low 39.0-51.0 [facility] Comment on above: Order Comment: Speci men Type: BLOOD SPECIMENOrdering Facility: [facility] Address: [address] [place] [address] Performed By: #### 5 7021-8 ####[facility] LABORATORYCLIA [id number] [place] [address] [place] Hemoglobin (Bld) [Mass/Vol] 13.0 g/dL Normal 13.0-17.0 [facility] Comment on above: Order Comment: Speci men Type: BLOOD SPECIMENOrdering Facility: [facility] Address: [address] [place] [address] Performed By: #### 5 7021-8 ####[facility] LABORATORYCLIA [id number] [place] [id number] [place] Immature granulocytes (Bld) [#/Vol] 0.05 10*3/uL Normal <0.10 [facility] Comment on above: Order Comment: Speci men Type: BLOOD SPECIMENOrdering Facility: [facility] Address: [address] [place] [address] Performed By: #### 5 7021-8 ####[facility] LABORATORYCLIA [id number] [place] [address] [place] Immature granulocytes/100 WBC (Bld) 0.5 % Normal [facility] Comment on above: Order Comment: Speci men Type: BLOOD SPECIMENOrdering Facility: [facility] Address: [address] [place] [address] Performed By: #### 5 7021-8 ####[facility] LABORATORYCLIA [id number] [place] [address] [place] Lymphocytes (Bld) [#/Vol] 0.87 10*3/uL Low 1.00-4.00 [facility] Comment on above: Order Comment: Speci men Type: BLOOD SPECIMENOrdering Facility: [facility] Address: [address] [place] [address] Performed By: #### 5 7021-8 ####[facility] LABORATORYCLIA [id number] [place] [address] [place] Lymphocytes/100 WBC (Bld) 9.1 % Normal [facility] Comment on above: Order Comment: Speci men Type: BLOOD SPECIMENOrdering Facility: [facility] Address: [address] [place] [address] Performed By: #### 5 7021-8 ####[facility] LABORATORYCLIA [id number] [place] [address] [place] MCH (RBC) [Entitic mass] 29.8 pg Normal 26.0-34.0 [facility] Comment on above: Order Comment: Speci men Type: BLOOD SPECIMENOrdering Facility: [facility] Address: [address] [place] [address] Performed By: #### 5 7021-8 ####[facility] LABORATORYCLIA [id number] [place] [address] [place] MCHC (RBC) [Mass/Vol] 34.2 g/dL Normal 30.5-36.0 [facility] Comment on above: Order Comment: Speci men Type: BLOOD SPECIMENOrdering Facility: [facility] Address: [address] [place] [address] Performed By: #### 5 7021-8 ####[facility] LABORATORYCLIA [id number] [place] [address] [place] MCV (RBC) [Entitic vol] 87.2 fL Normal 80.0-100.0 [facility] Comment on above: Order Comment: Speci men Type: BLOOD SPECIMENOrdering Facility: [facility] Address: [address] [place] [address] Performed By: #### 5 7021-8 ####[facility] LABORATORYCLIA [id number] [place] [address] [place] Monocytes (Bld) [#/Vol] 1.22 10*3/uL High <0.87 [facility] Comment on above: Order Comment: Speci men Type: BLOOD SPECIMENOrdering Facility: [facility] Address: [address] [place] [address] Performed By: #### 5 7021-8 ####[facility] LABORATORYCLIA [id number] [address] [place] Monocytes/100 WBC (Bld) 12.8 % Normal [facility] Comment on above: Order Comment: Speci men Type: BLOOD SPECIMENOrdering Facility: [facility] Address: [address] [place] [address] Performed By: #### 5 7021-8 ####[facility] LABORATORYCLIA [id number] [place] [id number] [place] Neutrophils (Bld) [#/Vol] 7.06 10*3/uL Normal 1.45-7.50 [facility] Comment on above: Order Comment: Speci men Type: BLOOD SPECIMENOrdering Facility: [facility] Address: [address] [place] [address] Performed By: #### 5 7021-8 ####[facility] LABORATORYCLIA [id number] [place] [id number] [place] Neutrophils/100 WBC (Bld) 74.1 % Normal [facility] Comment on above: Order Comment: Speci men Type: BLOOD SPECIMENOrdering Facility: [facility] Address: [address] [place] [address] Performed By: #### 5 7021-8 ####[facility] LABORATORYCLIA [id number] [place] [address] [place] Nucleated RBC (Bld) [#/Vol] 10*3/uL Normal <0.01 [facility] Comment on above: Order Comment: Speci men Type: BLOOD SPECIMENOrdering Facility: [facility] Address: [address] [place] [address] Performed By: #### 5 7021-8 ####[facility] LABORATORYCLIA [id number] [place] [address] [place] Nucleated RBC/100 WBC (Bld) [Ratio] 0.0 /100 WBC Normal [facility] Comment on above: Order Comment: Speci men Type: BLOOD SPECIMENOrdering Facility: [facility] Address: [address] [place] [address] Performed By: #### 5 7021-8 ####[facility] LABORATORYCLIA [id number] [place] [id number] [place] Platelet mean volume (Bld) [Entitic vol] 11.2 fL Normal 9.0-12.7 [facility] Comment on above: Order Comment: Speci men Type: BLOOD SPECIMENOrdering Facility: [facility] Address: [address] [place] [address] Performed By: #### 5 7021-8 ####[facility] LABORATORYCLIA [id number] [place] [address] [facility] [place] Platelets (Bld) [#/Vol] 298 10*3/uL Normal 150-400 [facility] Comment on above: Order Comment: Speci men Type: BLOOD SPECIMENOrdering Facility: [facility] Address: [address] [place] [address] Performed By: #### 5 7021-8 ####[facility] LABORATORYCLIA [id number] [place] [id number] [place] RBC (Bld) [#/Vol] 4.36 10*6/uL Normal 4.20-6.00 [facility] Comment on above: Order Comment: Speci men Type: BLOOD SPECIMENOrdering Facility: [facility] Address: [address] [place] [address] Performed By: #### 5 7021-8 ####[facility] LABORATORYCLIA [id number] [place] [address] [place] WBC (Bld) [#/Vol] 9.54 10*3/uL Normal 3.70-11.00 [facility] Comment on above: Order Comment: Speci men Type: BLOOD SPECIMENOrdering Facility: [facility] Address: [address] [place] [address] Performed By: #### 5 7021-8 ####[facility] LABORATORYCLIA [id number] [place] [address] [place] Comprehensive metabolic 2000 panelon 08-09-2023 Albumin [Mass/Vol] 3.9 g/dL Normal 3.9-4.9 [facility] Comment on above: Order Comment: Speci men Type: BLOOD SPECIMENOrdering Facility: [facility] Address: [address] [place] [address] Performed By: #### 2 4323-8, 2777-1, 05937-7 ####[facility] LABORATORYCLIA [id number] [place] [id number] [place] ALP [Catalytic activity/Vol] 110 U/L Normal 38-113 [facility] Comment on above: Order Comment: Speci men Type: BLOOD SPECIMENOrdering Facility: [facility] Address: [address] [place] [address] Performed By: #### 2 4323-8, 2776-08, ####[facility] LABORATORYCLIA [id number] [place] [address] [place] ALT [Catalytic activity/Vol] 26 U/L Normal 10-54 [facility] Comment on above: Order Comment: Speci men Type: BLOOD SPECIMENOrdering Facility: [facility] Address: [address] [place] [address] Performed By: #### 2 4323-8, 2776-08, ####[facility] LABORATORYCLIA [id number] [place] [address] [place] Anion gap [Moles/Vol] 11 mmol/L Normal 9-18 [facility] Comment on above: Order Comment: Speci men Type: BLOOD SPECIMENOrdering Facility: [facility] Address: [address] [place] [address] Performed By: #### 2 4323-8, 2776-08, ####[facility] LABORATORYCLIA [id number] [place] [id number] [place] AST [Catalytic activity/Vol] 21 U/L Normal 14-40 [facility] Comment on above: Order Comment: Speci men Type: BLOOD SPECIMENOrdering Facility: [facility] Address: [address] [place] [address] Performed By: #### 2 4323-8, 2776-08, ####[facility] LABORATORYCLIA [id number] [place] [address] [place] Bilirubin [Mass/Vol] 0.6 mg/dL Normal 0.2-1.3 [facility] Comment on above: Order Comment: Speci men Type: BLOOD SPECIMENOrdering Facility: [facility] Address: [address] [place] [address] Performed By: #### 2 4323-8, 2776-08, ####[facility] LABORATORYCLIA [id number] [place] [address] [place] Calcium [Mass/Vol] 9.4 mg/dL Normal 8.5-10.2 [facility] Comment on above: Order Comment: Speci men Type: BLOOD SPECIMENOrdering Facility: [facility] Address: [address] [place] [address] Performed By: #### 2 4323-8, 2776-08, ####[facility] LABORATORYCLIA [id number] [place] [address] [place] Chloride [Moles/Vol] 104 mmol/L Normal 97-105 [facility] Comment on above: Order Comment: Speci men Type: BLOOD SPECIMENOrdering Facility: [facility] Address: [address] [place] [address] Performed By: #### 2 4323-8, 2776-08, ####[facility] LABORATORYCLIA [id number] [place] [id number] [place] CO2 [Moles/Vol] 23 mmol/L Normal 22-30 [facility] Comment on above: Order Comment: Speci men Type: BLOOD SPECIMENOrdering Facility: [facility] Address: [address] [place] [address] Performed By: #### 2 4323-8, 2776-08, ####[facility] LABORATORYCLIA [id number] [place] [address] [place] Creatinine [Mass/Vol] 1.52 mg/dL High 0.73-1.22 [facility] Comment on above: Order Comment: Speci men Type: BLOOD SPECIMENOrdering Facility: [facility] Address: [address] [place] [address] Performed By: #### 2 4323-8, 2776-08, ####[facility] LABORATORYCLIA [id number] [place] [address] [place] Creatinine and Glomerular filtration rate.predicted panel (S/P/Bld) 50 mL/min/1.73m??? Low >=60 [facility] Comment on above: Order Comment: Arben suarez Type: BLOOD SPECIMENOrdering Facility: [facility] Address: [address] [place] [address] Result Comment: Bailey mated Glomerular Filtration Rate [...] actual GFR. Performed By: #### 2 4323-8, 2777-1, ####[facility] LABORATORYCLIA [id number] [place] [address] [place] Glucose [Mass/Vol] 132 mg/dL High 74-99 [facility] Comment on above: Order Comment: Arben suarez Type: BLOOD SPECIMENOrdering Facility: [facility] Address: [address] [place] [address] Result Comment: The [place] [employer] (ADA) provides guidance for cutoff [...] Standards of Medical Care in Diabetes 2016, [place] [employer]. Diabetes Care. 2016.39(Suppl 1). Performed By: #### 2 4323-8, 2777-1, ####[facility] LABORATORYCLIA [id number] [place] [id number] [place] Potassium [Moles/Vol] 3.9 mmol/L Normal 3.7-5.1 [facility] Comment on above: Order Comment: Arben suarez Type: BLOOD SPECIMENOrdering Facility: [facility] Address: [address] [place] [address] Performed By: #### 2 4323-8, 2776-08, ####[facility] LABORATORYCLIA [id number] [place] [address] [place] Protein [Mass/Vol] 7.3 g/dL Normal 6.3-8.0 [facility] Comment on above: Order Comment: Speci men Type: BLOOD SPECIMENOrdering Facility: [facility] Address: [address] [place] [address] Performed By: #### 2 4323-8, 2776-08, ####[facility] LABORATORYCLIA [id number] [place] [address] [place] Sodium [Moles/Vol] 138 mmol/L Normal 136-144 [facility] Comment on above: Order Comment: Speci men Type: BLOOD SPECIMENOrdering Facility: [facility] Address: [address] [place] [address] Performed By: #### 2 4323-8, 2776-08, ####[facility] LABORATORYCLIA [id number] [place] [address] [place] Urea nitrogen [Mass/Vol] 25 mg/dL High 9-24 [facility] Comment on above: Order Comment: Speci men Type: BLOOD SPECIMENOrdering Facility: [facility] Address: [address] [facility] [place] [address] Performed By: #### 2 4323-8, 2776-08, ####[facility] LABORATORYCLIA [id number] [place] [address] [place] Magnesium SerPl-mCncon 08-09 Magnesium [Mass/Vol] 2.2 mg/dL Normal 1.7-2.3 [facility] Comment on above: Order Comment: Speci men Type: BLOOD SPECIMENOrdering Facility: [facility] Address: [address] [place] [address] Performed By: #### 2 4323-8, 27702-22, ####[facility] LABORATORYCLIA [id number] [place] [id number] [place] NURSING PROGon 08-09-2023 NURSING PROG Normal [facility] NUTRITIONon 08-09-2023 NUTRITION Normal [facility] Phosphate SerPl-mCncon 08-09 Phosphate [Mass/Vol] 3.1 mg/dL Normal 2.7-4.8 [facility] Comment on above: Order Comment: Speci men Type: BLOOD SPECIMENOrdering Facility: [facility] Address: [place] [address] Performed By: #### 2 4323-8, 2777-1, 10078-7 ####[facility] LABORATORYCLIA [id number] [place] [address] [facility] [place] THERAPY NTon 08-09-2023 THERAPY NT Normal [facility] ALLIED HEALTHon 08-08-2023 ALLIED HEALTH [facility] CASE MGT INIT ASSESon 2022 CASE MGT INIT [facility] CBC W Auto Differential pane l (Bld)on 08-08-2023 Basophils (Bld) [#/Vol] 0.06 10*3/uL Normal <0.11 [facility] Comment on above: Order Comment: Speci men Type: BLOOD SPECIMENOrdering Facility: [facility] Address: [address] [place] [address] Performed By: #### 5 7021-8 ####[facility] LABORATORYCLIA [id number] [place] [address] [place] Basophils/100 WBC (Bld) 0.7 % Normal [facility] Comment on above: Order Comment: Speci men Type: BLOOD SPECIMENOrdering Facility: [facility] Address: [place] [address] Performed By: #### 5 7021-8 ####[facility] LABORATORYCLIA [id number] [place] [id number] [place] Differential cell count method Nom (Bld) Auto Normal [facility] Comment on above: Order Comment: Speci men Type: BLOOD SPECIMENOrdering Facility: [facility] Address: [place] [address] Performed By: #### 5 7021-8 ####GEOV[facility] LABORATORYCLIA [id number] [place] [id number] [place] Eosinophils (Bld) [#/Vol] 0.14 10*3/uL Normal <0.46 [facility] Comment on above: Order Comment: Speci men Type: BLOOD SPECIMENOrdering Facility: [facility] Address: [address] [place] [address] Performed By: #### 5 7021-8 ####GEOVANNA LABORATORYCLIA [id number] [address] [place] Eosinophils/100 WBC (Bld) 1.7 % Normal [facility] Comment on above: Order Comment: Speci men Type: BLOOD SPECIMENOrdering Facility: [facility] [place] Address: [address] [place] [address] Performed By: #### 5 7021-8 ####[facility] LABORATORYCLIA [id number] [address] [place] Erythrocyte distribution width (RBC) [Ratio] 11.9 % Normal 11.5-15.0 [facility] Comment on above: Order Comment: Speci men Type: BLOOD SPECIMENOrdering Facility: [facility] Address: [address] [place] [address] Performed By: #### 5 7021-8 ####GE[facility]NA LABORATORYCLIA [id number] [address] [place] Hematocrit (Bld) [Volume fraction] 39.6 % Normal 39.0-51.0 [facility] Comment on above: Order Comment: Speci men Type: BLOOD SPECIMENOrdering Facility: [facility] Address: [address] [place] [address] Performed By: #### 5 7021-8 ####GEOVANNA LABORATORYCLIA [id number] [place] [id number] [place] Hemoglobin (Bld) [Mass/Vol] 13.7 g/dL Normal 13.0-17.0 [facility] Comment on above: Order Comment: Speci men Type: BLOOD SPECIMENOrdering Facility: [facility] Address: [address] [place] [address] Performed By: #### 5 7021-8 ####[facility] LABORATORYCLIA [id number] [place] [address] [place] Immature granulocytes (Bld) [#/Vol] 0.06 10*3/uL Normal <0.10 [facility] Comment on above: Order Comment: Speci men Type: BLOOD SPECIMENOrdering Facility: [facility] Address: [address] [place] [address] Performed By: #### 5 7021-8 ####[facility] LABORATORYCLIA [id number] [address] [place] Immature granulocytes/100 WBC (Bld) 0.7 % Normal [facility] Comment on above: Order Comment: Speci men Type: BLOOD SPECIMENOrdering Facility: [facility] Address: [address] [place] [address] Performed By: #### 5 7021-8 ####GEOV[facility] LABORATORYCLIA [id number] [place] [address] [place] Lymphocytes (Bld) [#/Vol] 1.02 10*3/uL Normal 1.00-4.00 [facility] Comment on above: Order Comment: Speci men Type: BLOOD SPECIMENOrdering Facility: [facility] Address: [address] [place] [address] Performed By: #### 5 7021-8 ####GE[facility] LABORATORYCLIA [id number] [address] [place] Lymphocytes/100 WBC (Bld) 12.1 % Normal [facility] Comment on above: Order Comment: Speci men Type: BLOOD SPECIMENOrdering Facility: [facility] Address: [address] [place] [address] Performed By: #### 5 7021-8 ####[facility] LABORATORYCLIA [id number] [place] [address] [place] MCH (RBC) [Entitic mass] 29.9 pg Normal 26.0-34.0 [facility] Comment on above: Order Comment: Speci men Type: BLOOD SPECIMENOrdering Facility: [facility] Address: [address] [place] [address] Performed By: #### 5 7021-8 ####[facility] LABORATORYCLIA [id number] [place] [address] [place] MCHC (RBC) [Mass/Vol] 34.6 g/dL Normal 30.5-36.0 [facility] Comment on above: Order Comment: Speci men Type: BLOOD SPECIMENOrdering Facility: [facility] Address: [address] [place] [address] Performed By: #### 5 7021-8 ####[facility] LABORATORYCLIA [id number] [place] [address] [place] MCV (RBC) [Entitic vol] 86.5 fL Normal 80.0-100.0 [facility] Comment on above: Order Comment: Speci men Type: BLOOD SPECIMENOrdering Facility: [facility] Address: [address] [place] [address] Performed By: #### 5 7021-8 ####[facility] LABORATORYCLIA [id number] [place] [address] [place] Monocytes (Bld) [#/Vol] 0.78 10*3/uL Normal <0.87 [facility] Comment on above: Order Comment: Speci men Type: BLOOD SPECIMENOrdering Facility: [facility] Address: [address] [place] [address] Performed By: #### 5 7021-8 ####[facility] LABORATORYCLIA [id number] [place] [address] [place] Monocytes/100 WBC (Bld) 9.3 % Normal [facility] Comment on above: Order Comment: Speci men Type: BLOOD SPECIMENOrdering Facility: [facility] Address: [address] [place] [address] Performed By: #### 5 7021-8 ####[facility] LABORATORYCLIA [id number] [place] [address] [place] Neutrophils (Bld) [#/Vol] 6.37 10*3/uL Normal 1.45-7.50 [facility] Comment on above: Order Comment: Speci men Type: BLOOD SPECIMENOrdering Facility: [facility] Address: [address] [place] [address] Performed By: #### 5 7021-8 ####GEOVANNA LABORATORYCLIA [id number] [place] [address] [place] Neutrophils/100 WBC (Bld) 75.5 % Normal [facility] Comment on above: Order Comment: Speci men Type: BLOOD SPECIMENOrdering Facility: [facility] Address: [address] [place] [address] Performed By: #### 5 7021-8 ####GEOVANNA LABORATORYCLIA [id number] [place] [address] [place] Nucleated RBC (Bld) [#/Vol] 10*3/uL Normal <0.01 [facility] Comment on above: Order Comment: Speci men Type: BLOOD SPECIMENOrdering Facility: [facility] Address: [address] [place] [address] Performed By: #### 5 7021-8 ####GEOVANNA LABORATORYCLIA [id number] [place] [address] [place] Nucleated RBC/100 WBC (Bld) [Ratio] 0.0 /100 WBC Normal [facility] Comment on above: Order Comment: Speci men Type: BLOOD SPECIMENOrdering Facility: [facility] Address: [address] [place] [address] Performed By: #### 5 7021-8 ####GE[facility] LABORATORYCLIA [id number] [place] [address] [place] Platelet mean volume (Bld) [Entitic vol] 11.3 fL Normal 9.0-12.7 [facility] Comment on above: Order Comment: Speci men Type: BLOOD SPECIMENOrdering Facility: [facility] Address: [address] [place] [address] Performed By: #### 5 7021-8 ####[facility] LABORATORYCLIA [id number] [place] [address] [place] Platelets (Bld) [#/Vol] 320 10*3/uL Normal 150-400 [facility] Comment on above: Order Comment: Speci men Type: BLOOD SPECIMENOrdering Facility: [facility] Address: [address] [place] [address] Performed By: #### 5 7021-8 ####[facility] LABORATORYCLIA [id number] [place] [address] [place] RBC (Bld) [#/Vol] 4.58 10*6/uL Normal 4.20-6.00 [facility] Comment on above: Order Comment: Speci men Type: BLOOD SPECIMENOrdering Facility: [facility] Address: [address] [place] [address] Performed By: #### 5 7021-8 ####[facility] LABORATORYCLIA [id number] [place] [address] [place] WBC (Bld) [#/Vol] 8.43 10*3/uL Normal 3.70-11.00 [facility] Comment on above: Order Comment: Speci men Type: BLOOD SPECIMENOrdering Facility: [facility] Address: [address] [place] [address] Performed By: #### 5 7021-8 ####[facility] LABORATORYCLIA [id number] [place] [address] [place] CONSULTon 08-08-2023 CONSULT Normal [facility] CT PANCREAS/PELVIS W IVCONon 08-08-2023 CT PANCREAS/PELVIS W IVCON Normal [facility] Comprehensive metabolic 2000 panelon 08-08-2023 Albumin [Mass/Vol] 4.5 g/dL Normal 3.9-4.9 [facility] Comment on above: Order Comment: Speci men Type: BLOOD SPECIMENOrdering Facility: [facility] Address: [address] [place] [address] Performed By: #### 2 777-1, 56287-7, 48648-2 ####[facility] LABORATORYCLIA [id number] [place] [address] [place] ALP [Catalytic activity/Vol] 114 U/L High 38-113 [facility] Comment on above: Order Comment: Speci men Type: BLOOD SPECIMENOrdering Facility: [facility] Address: [address] [place] [address] Performed By: #### 2 777-1, , ####GEOVANNA LABORATORYCLIA [id number] [place] [address] [place] ALT [Catalytic activity/Vol] 30 U/L Normal 10-54 [facility] Comment on above: Order Comment: Speci men Type: BLOOD SPECIMENOrdering Facility: [facility] Address: [address] [place] [address] Performed By: #### 2 777-1, , ####GEOVANNA LABORATORYCLIA [id number] [place] [address] [place] Anion gap [Moles/Vol] 17 mmol/L Normal 9-18 [facility] Comment on above: Order Comment: Speci men Type: BLOOD SPECIMENOrdering Facility: [facility] Address: [address] [place] [address] Performed By: #### 2 777-1, , ####GEOVANNA LABORATORYCLIA [id number] [place] [address] [place] AST [Catalytic activity/Vol] 27 U/L Normal 14-40 [facility] Comment on above: Order Comment: Speci men Type: BLOOD SPECIMENOrdering Facility: [facility] Address: [address] [place] [place] [address] Performed By: #### 2 777-1, , ####GEOVANNA LABORATORYCLIA [id number] [place] [address] [place] Bilirubin [Mass/Vol] 0.5 mg/dL Normal 0.2-1.3 [facility] Comment on above: Order Comment: Speci men Type: BLOOD SPECIMENOrdering Facility: [facility] Address: [address] [place] [address] Performed By: #### 2 777-1, , ####GEOVANNA LABORATORYCLIA [id number] [place] [address] [place] Calcium [Mass/Vol] 9.7 mg/dL Normal 8.5-10.2 [facility] Comment on above: Order Comment: Speci men Type: BLOOD SPECIMENOrdering Facility: [facility] Address: [address] [place] [address] Performed By: #### 2 777-1, , ####B[facility] LABORATORYCLIA [id number] [place] [address] [place] Chloride [Moles/Vol] 102 mmol/L Normal 97-105 [facility] Comment on above: Order Comment: Speci men Type: BLOOD SPECIMENOrdering Facility: [facility] Address: [address] [place] [address] Performed By: #### 2 777-1, , ####B[facility] LABORATORYCLIA [id number] [place] [address] [place] CO2 [Moles/Vol] 18 mmol/L Low 22-30 [facility] Comment on above: Order Comment: Speci men Type: BLOOD SPECIMENOrdering Facility: [facility] Address: [address] [place] [address] Performed By: #### 2 777-1, , ####B[facility] LABORATORYCLIA [id number] [place] [address] [place] Creatinine [Mass/Vol] 1.86 mg/dL High 0.73-1.22 [facility] Comment on above: Order Comment: Speci men Type: BLOOD SPECIMENOrdering Facility: [facility] Address: [address] [place] [address] Performed By: #### 2 777-1, , ####[facility] LABORATORYCLIA [id number] [place] [address] [place] Creatinine and Glomerular filtration rate.predicted panel (S/P/Bld) 39 mL/min/1.73m??? Low >=60 [facility] Comment on above: Order Comment: Speci men Type: BLOOD SPECIMENOrdering Facility: [facility] Address: [address] [place] [address] Result Comment: Bailey mated Glomerular Filtration Rate [...] actual GFR. Performed By: #### 2 777-1, 80409-6, ####B[facility] LABORATORYCLIA [id number] [place] [address] [place] Glucose [Mass/Vol] 87 mg/dL Normal 74-99 [facility] Comment on above: Order Comment: Arben suarez Type: BLOOD SPECIMENOrdering Facility: [facility] Address: [address] [place] [address] Result Comment: The [place] [employer] (ADA) provides guidance for cutoff [...] Standards of Medical Care in Diabetes 2016, [place] [employer]. Diabetes Care. 2016.39(Suppl 1). Performed By: #### 2 777-1, 37378-9, ####[facility] LABORATORYCLIA [id number] [place] [address] [place] Potassium [Moles/Vol] 4.2 mmol/L Normal 3.7-5.1 [facility] Comment on above: Order Comment: Arbne suarez Type: BLOOD SPECIMENOrdering Facility: [facility] Address: [address] [place] [address] Performed By: #### 2 777-1, , ####[facility] LABORATORYCLIA [id number] [place] [address] [place] Protein [Mass/Vol] 7.6 g/dL Normal 6.3-8.0 [facility] Comment on above: Order Comment: Speci men Type: BLOOD SPECIMENOrdering Facility: [facility] Address: [address] [place] [address] Performed By: #### 2 777-1, , ####[facility] LABORATORYCLIA [id number] [place] [address] [place] Sodium [Moles/Vol] 137 mmol/L Normal 136-144 [facility] Comment on above: Order Comment: Speci men Type: BLOOD SPECIMENOrdering Facility: [facility] Address: [address] [place] [address] Performed By: #### 2 777-1, , ####[facility] LABORATORYCLIA [id number] [place] [id number] [place] Urea nitrogen [Mass/Vol] 33 mg/dL High 9-24 [facility] Comment on above: Order Comment: Speci men Type: BLOOD SPECIMENOrdering Facility: [facility] Address: [address] [place] [address] Performed By: #### 2 777-1, , ####[facility] LABORATORYCLIA [id number] [place] [id number] [place] ECG COMPLETEon 08-08-2023 ECG COMPLETE Normal [facility] Magnesium SerPl-mCncon 08-08 Magnesium [Mass/Vol] 2.2 mg/dL Normal 1.7-2.3 [facility] Comment on above: Order Comment: Speci men Type: BLOOD SPECIMENOrdering Facility: [facility] Address: [address] [place] [address] Performed By: #### 2 777-1, , ####[facility] LABORATORYCLIA [id number] [place] [id number] [place] NUTRITIONon 08-08-2023 NUTRITION Normal [facility] NUTRITION Normal [facility] Phosphate SerPl-mCncon 08-08 Phosphate [Mass/Vol] 3.4 mg/dL Normal 2.7-4.8 [facility] Comment on above: Order Comment: Speci men Type: BLOOD SPECIMENOrdering Facility: [facility] Address: [address] [place] [address] Performed By: #### 2 777-1, 47792-2, 35295-8 ####[facility] LABORATORYCLIA [id number] [place] [address] [place] THERAPY NTon 08-08-2023 THERAPY NT Normal [facility] Urinalysis complete panel (U )on 08-08-2023 Bilirubin Ql (U) Negative Normal Negative [facility] Comment on above: Order Comment: Speci men Type: URINE SPECIMENOrdering Facility: [facility] Address: [address] [place] [address] Performed By: #### 2 4356-8 ####B[facility] LABORATORYCLIA [id number] [place] [address] [place] Clarity (Unsp spec) Clear Normal Clear [facility] Comment on above: Order Comment: Speci men Type: URINE SPECIMENOrdering Facility: [facility] Address: [address] [place] [address] Performed By: #### 2 4356-8 ####[facility] LABORATORYCLIA [id number] [place] [id number] [place] Color (U) Light Yellow Normal Yellow [facility] Comment on above: Order Comment: Speci men Type: URINE SPECIMENOrdering Facility: [facility] Address: [address] [place] [address] Performed By: #### 2 4356-8 ####[facility] LABORATORYCLIA [id number] [place] [address] [place] Glucose Test strip (U) [Mass/Vol] Negative Normal Trace, Negative [facility] Comment on above: Order Comment: Speci men Type: URINE SPECIMENOrdering Facility: [facility] Address: [address] [place], [place] [address] Performed By: #### 2 4356-8 ####[facility] LABORATORYCLIA [id number] [place] [address] [place] Hemoglobin Ql (U) Negative Normal Negative, Trace [facility] Comment on above: Order Comment: Speci men Type: URINE SPECIMENOrdering Facility: [facility] Address: [address] [place] [address] Performed By: #### 2 4356-8 ####[facility] LABORATORYCLIA [id number] [place] [address] [place] Hyaline casts (Urine sed) [#/Area] 4-10 /LPF Abnormal 0 /LPF [facility] Comment on above: Order Comment: Speci men Type: URINE SPECIMENOrdering Facility: [facility] Address: [address] [place] [address] Performed By: #### 2 4356-8 ####[facility] LABORATORYCLIA [id number] [place] [address] [place] Ketones Ql (U) Trace Normal Negative, Trace [facility] Comment on above: Order Comment: Speci men Type: URINE SPECIMENOrdering Facility: [facility] Address: [address] [place] [address] Performed By: #### 2 4356-8 ####GEOV[facility]NA LABORATORYCLIA [id number] [address] [place] Leukocyte esterase Test strip Ql (U) Negative Normal Negative, 25 Angle/uL [facility] Comment on above: Order Comment: Speci men Type: URINE SPECIMENOrdering Facility: [facility] Address: [address] [place] [address] Performed By: #### 2 4356-8 ####[facility] LABORATORYCLIA [id number] [place] [address] [place] Nitrite Ql (U) Negative Normal Negative [facility] Comment on above: Order Comment: Speci men Type: URINE SPECIMENOrdering Facility: [facility] Address: [address] [place] [address] Performed By: #### 2 4356-8 ####[facility] LABORATORYCLIA [id number] [place] [address] [place] pH (U) 6.5 [pH] Normal 5.0-8.0 [facility] Comment on above: Order Comment: Speci men Type: URINE SPECIMENOrdering Facility: [facility] Address: [address] [place] [address] Performed By: #### 2 4356-8 ####[facility] LABORATORYCLIA [id number] [place] [address] [place] Protein (U) [Mass/Vol] 1+ Abnormal Trace, Negative [facility] Comment on above: Order Comment: Speci men Type: URINE SPECIMENOrdering Facility: [facility] Address: [address] [place] [address] Performed By: #### 2 4356-8 ####[facility]PITALIA [id number] [place] [address] [place] RBC LM.HPF (Urine sed) [#/Area] 0-3 /HPF Normal 0-3 /HPF [facility] Comment on above: Order Comment: Speci men Type: URINE SPECIMENOrdering Facility: [facility] Address: [address] [place] [address] Performed By: #### 2 4356-8 ####[facility] LABORATORYCLIA [id number] [place] [address] [place] Specific gravity (U) [Rel density] >1.050 High 1.005-1.03 0 [facility] Comment on above: Order Comment: Speci men Type: URINE SPECIMENOrdering Facility: [facility] Address: [address] [place] [address] Performed By: #### 2 4356-8 ####B[facility] LABORATORYCLIA [id number] [place] [address] [place] Urobilinogen Ql (U) Negative Normal Negative [facility] Comment on above: Order Comment: Speci men Type: URINE SPECIMENOrdering Facility: [facility] Address: [address] [place] [address] Performed By: #### 2 4356-8 ####[facility]PITALCLIA [id number] [place] [address] [place] WBC LM.HPF (Urine sed) [#/Area] 0-5 /HPF Normal 0-5 /HPF [facility] Comment on above: Order Comment: Speci men Type: URINE SPECIMENOrdering Facility: [facility] Address: [address] [place] [address] Performed By: #### 2 4356-8 ####[facility] LABORATORYCLIA [id number] [place] [address] [place] ALLIED HEALTHon 08-07-2023 ALLIED HEALTH Normal [facility] CBC W Auto Differential pane l (Bld)on 08-07-2023 Basophils (Bld) [#/Vol] 0.06 10*3/uL Normal <0.11 [facility] Comment on above: Order Comment: Speci men Type: BLOOD SPECIMENOrdering Facility: [facility] Address: [address] [place] [address] Performed By: #### 5 7021-8 ####[facility] LABORATORYCLIA [id number] [place] [address] [place] Basophils/100 WBC (Bld) 0.6 % Normal [facility] Comment on above: Order Comment: Speci men Type: BLOOD SPECIMENOrdering Facility: [facility] Address: [address] [place] [address] Performed By: #### 5 7021-8 ####[facility] LABORATORYCLIA [id number] [place] [address] [place] Differential cell count method Nom (Bld) Auto Normal [facility] Comment on above: Order Comment: Speci men Type: BLOOD SPECIMENOrdering Facility: [facility] Address: [address] [place] [address] Performed By: #### 5 7021-8 ####[facility] LABORATORYCLIA [id number] [place] [address] [place] Eosinophils (Bld) [#/Vol] 0.08 10*3/uL Normal <0.46 [facility] Comment on above: Order Comment: Speci men Type: BLOOD SPECIMENOrdering Facility: [facility] Address: [address] [place] [address] Performed By: #### 5 7021-8 ####[facility] LABORATORYCLIA [id number] [place] [id number] [place] Eosinophils/100 WBC (Bld) 0.8 % Normal [facility] Comment on above: Order Comment: Speci men Type: BLOOD SPECIMENOrdering Facility: [facility] Address: [address] [place] [address] Performed By: #### 5 7021-8 ####[facility] LABORATORYCLIA [id number] [address] [place] Erythrocyte distribution width (RBC) [Ratio] 11.9 % Normal 11.5-15.0 [facility] Comment on above: Order Comment: Speci men Type: BLOOD SPECIMENOrdering Facility: [facility] Address: [address] [place] [address] Performed By: #### 5 7021-8 ####[facility] LABORATORYCLIA [id number] [address] [place] Hematocrit (Bld) [Volume fraction] 43.6 % Normal 39.0-51.0 [facility] Comment on above: Order Comment: Speci men Type: BLOOD SPECIMENOrdering Facility: [facility] Address: [address] [place] [address] Performed By: #### 5 7021-8 ####[facility] LABORATORYCLIA [id number] [place] [id number] [place] Hemoglobin (Bld) [Mass/Vol] 14.9 g/dL Normal 13.0-17.0 [facility] Comment on above: Order Comment: Speci men Type: BLOOD SPECIMENOrdering Facility: [facility] Address: [address] [place] [address] Performed By: #### 5 7021-8 ####[facility] LABORATORYCLIA [id number] [place] [address] [place] Immature granulocytes (Bld) [#/Vol] 0.10 10*3/uL High <0.10 [facility] Comment on above: Order Comment: Speci men Type: BLOOD SPECIMENOrdering Facility: [facility] Address: [address] [place] [address] Performed By: #### 5 7021-8 ####[facility] LABORATORYCLIA [id number] [place] [address] [place] Immature granulocytes/100 WBC (Bld) 1.0 % Normal [facility] Comment on above: Order Comment: Speci men Type: BLOOD SPECIMENOrdering Facility: [facility] Address: [address] [place] [address] Performed By: #### 5 7021-8 ####[facility] LABORATORYCLIA [id number] [place] [address] [place] Lymphocytes (Bld) [#/Vol] 1.20 10*3/uL Normal 1.00-4.00 [facility] Comment on above: Order Comment: Speci men Type: BLOOD SPECIMENOrdering Facility: [facility] Address: [address] [place] [address] Performed By: #### 5 7021-8 ####[facility] LABORATORYCLIA [id number] [place] [address] [place] Lymphocytes/100 WBC (Bld) 12.1 % Normal [facility] Comment on above: Order Comment: Speci men Type: BLOOD SPECIMENOrdering Facility: [facility] Address: [address] [place] [address] Performed By: #### 5 7021-8 ####[facility] LABORATORYCLIA [id number] [place] [address] [place] MCH (RBC) [Entitic mass] 29.4 pg Normal 26.0-34.0 [facility] Comment on above: Order Comment: Speci men Type: BLOOD SPECIMENOrdering Facility: [facility] Address: [address] [place] [address] Performed By: #### 5 7021-8 ####[facility] LABORATORYCLIA [id number] [address] [place] MCHC (RBC) [Mass/Vol] 34.2 g/dL Normal 30.5-36.0 [facility] Comment on above: Order Comment: Speci men Type: BLOOD SPECIMENOrdering Facility: [facility] Address: [address] [place] [address] Performed By: #### 5 7021-8 ####[facility] LABORATORYCLIA [id number] [place] [address] [place] MCV (RBC) [Entitic vol] 86.0 fL Normal 80.0-100.0 [facility] Comment on above: Order Comment: Speci men Type: BLOOD SPECIMENOrdering Facility: [facility] Address: [address] [place] [address] Performed By: #### 5 7021-8 ####[facility] LABORATORYCLIA [id number] [place] [address] [place] Monocytes (Bld) [#/Vol] 0.97 10*3/uL High <0.87 [facility] Comment on above: Order Comment: Speci men Type: BLOOD SPECIMENOrdering Facility: [facility] Address: [address] [place] [address] Performed By: #### 5 7021-8 ####[facility] LABORATORYCLIA [id number] [place] [address] [place] Monocytes/100 WBC (Bld) 9.7 % Normal [facility] Comment on above: Order Comment: Speci men Type: BLOOD SPECIMENOrdering Facility: [facility] Address: [address] [place] [address] Performed By: #### 5 7021-8 ####[facility] LABORATORYCLIA [id number] [place] [address] [place] Neutrophils (Bld) [#/Vol] 7.54 10*3/uL High 1.45-7.50 [facility] Comment on above: Order Comment: Speci men Type: BLOOD SPECIMENOrdering Facility: [facility] Address: [address] [place] [address] Performed By: #### 5 7021-8 ####[facility] LABORATORYCLIA [id number] [place] [address] [place] Neutrophils/100 WBC (Bld) 75.8 % Normal [facility] Comment on above: Order Comment: Speci men Type: BLOOD SPECIMENOrdering Facility: [facility] Address: [address] [place] [address] Performed By: #### 5 7021-8 ####[facility] LABORATORYCLIA [id number] [place] [address] [place] Nucleated RBC (Bld) [#/Vol] 10*3/uL Normal <0.01 [facility] Comment on above: Order Comment: Speci men Type: BLOOD SPECIMENOrdering Facility: [facility] Address: [address] [place] [address] Performed By: #### 5 7021-8 ####[facility] LABORATORYCLIA [id number] [place] [address] [place] Nucleated RBC/100 WBC (Bld) [Ratio] 0.0 /100 WBC Normal [facility] Comment on above: Order Comment: Speci men Type: BLOOD SPECIMENOrdering Facility: [facility] Address: [address] [place] [address] Performed By: #### 5 7021-8 ####[facility] LABORATORYCLIA [id number] [place] [address] [place] Platelet mean volume (Bld) [Entitic vol] 11.6 fL Normal 9.0-12.7 [facility] Comment on above: Order Comment: Speci men Type: BLOOD SPECIMENOrdering Facility: [facility] Address: [address] [place] [address] Performed By: #### 5 7021-8 ####[facility] LABORATORYCLIA [id number] [place] [address] [place] Platelets (Bld) [#/Vol] 374 10*3/uL Normal 150-400 [facility] Comment on above: Order Comment: Speci men Type: BLOOD SPECIMENOrdering Facility: [facility] Address: [address] [place] [address] Performed By: #### 5 7021-8 ####[facility] LABORATORYCLIA [id number] [place] [address] [place] RBC (Bld) [#/Vol] 5.07 10*6/uL Normal 4.20-6.00 [facility] Comment on above: Order Comment: Speci men Type: BLOOD SPECIMENOrdering Facility: [facility] Address: [address] [place] [address] Performed By: #### 5 7021-8 ####[facility] LABORATORYCLIA [id number] [place] [address] [place] WBC (Bld) [#/Vol] 9.95 10*3/uL Normal 3.70-11.00 [facility] Comment on above: Order Comment: Speci men Type: BLOOD SPECIMENOrdering Facility: [facility] Address: [address] [place] [address] Performed By: #### 5 7021-8 ####[facility] LABORATORYCLIA [id number] [address] OF [facility] CNOVon 08-07-2023 CNOV Office Visit (GENNOM ) -- AISHA JULIEN ([id number]) 1955 M Date Time Provider Department 08/07/23 2:00 PM [facility] GENRAMAN During your visit today, we recorded the [...] and gum (more content not included)... Normal [facility] CRP SerPl-mCncon 08-07-2023 CRP [Mass/Vol] mg/L Normal <0.9 [facility] Comment on above: Order Comment: Arben suarez Type: BLOOD SPECIMENOrdering Facility: [facility] Address: [address] [place] [address] Performed By: #### 2 276-4, 1987-12 ####[facility] LABORATORYCLIA [id number] [place] [address] [place] Comprehensive metabolic 2000 panelon 08-07-2023 Albumin [Mass/Vol] 4.6 g/dL Normal 3.9-4.9 [facility] Comment on above: Order Comment: Speci men Type: BLOOD SPECIMENOrdering Facility: [facility] Address: [address] [place] [address] Performed By: #### 3 040-3, , ####[facility] LABORATORYCLIA [id number] [place] [address] [place] ALP [Catalytic activity/Vol] 127 U/L High 38-113 [facility] Comment on above: Order Comment: Speci men Type: BLOOD SPECIMENOrdering Facility: [facility] Address: [address] [place] [address] Performed By: #### 3 040-3, , ####[facility] LABORATORYCLIA [id number] [place] [address] [place] ALT [Catalytic activity/Vol] 35 U/L Normal 10-54 [facility] Comment on above: Order Comment: Speci men Type: BLOOD SPECIMENOrdering Facility: [facility] Address: [address] [place] [address] Performed By: #### 3 040-3, , ####[facility] LABORATORYCLIA [id number] [place] [address] [place] Anion gap [Moles/Vol] 18 mmol/L Normal 9-18 [facility] Comment on above: Order Comment: Speci men Type: BLOOD SPECIMENOrdering Facility: [facility] Address: [address] [place] [address] Performed By: #### 3 040-3, , ####[facility] LABORATORYCLIA [id number] [place] [address] [place] AST [Catalytic activity/Vol] 30 U/L Normal 14-40 [facility] Comment on above: Order Comment: Speci men Type: BLOOD SPECIMENOrdering Facility: [facility] Address: [address] [place] [address] Performed By: #### 3 040-3, , ####[facility] LABORATORYCLIA [id number] [place] [address] [place] Bilirubin [Mass/Vol] 0.5 mg/dL Normal 0.2-1.3 [facility] Comment on above: Order Comment: Speci men Type: BLOOD SPECIMENOrdering Facility: [facility] Address: [place] [address] Performed By: #### 3 040-3, , ####[facility] LABORATORYCLIA [id number] [place] [address] [place] Calcium [Mass/Vol] 9.9 mg/dL Normal 8.5-10.2 [facility] Comment on above: Order Comment: Speci men Type: BLOOD SPECIMENOrdering Facility: [facility] Address: [address] [place] [address] Performed By: #### 3 040-3, , ####[facility] LABORATORYCLIA [id number] [place] [address] [place] Chloride [Moles/Vol] 93 mmol/L Low 97-105 [facility] Comment on above: Order Comment: Speci men Type: BLOOD SPECIMENOrdering Facility: [facility] Address: [address] [place] [address] Performed By: #### 3 040-3, , ####[facility] LABORATORYCLIA [id number] [place] [address] [place] CO2 [Moles/Vol] 19 mmol/L Low 22-30 [facility] Comment on above: Order Comment: Speci men Type: BLOOD SPECIMENOrdering Facility: [facility] Address: [address] [place] [address] Performed By: #### 3 040-3, , ####[facility] LABORATORYCLIA [id number] [place] [address] [place] Creatinine [Mass/Vol] 2.20 mg/dL High 0.73-1.22 [facility] Comment on above: Order Comment: Speci men Type: BLOOD SPECIMENOrdering Facility: [facility] Address: [address] [place] [address] Performed By: #### 3 040-3, 90939-5, ####[facility] LABORATORYCLIA [id number] [place] [address] [place] Creatinine and Glomerular filtration rate.predicted panel (S/P/Bld) 32 mL/min/1.73m??? Low >=60 [facility] Comment on above: Order Comment: Arben suarez Type: BLOOD SPECIMENOrdering Facility: [facility] Address: [address] [place] [address] Result Comment: Bailey mated Glomerular Filtration Rate [...] actual GFR. Performed By: #### 3 040-3, 47054-6, ####[facility] LABORATORYCLIA [id number] [place] [address] [place] Glucose [Mass/Vol] 108 mg/dL High 74-99 [facility] Comment on above: Order Comment: Arben usarez Type: BLOOD SPECIMENOrdering Facility: [facility] Address: [address] [place] [address] Result Comment: The [place] [employer] (ADA) provides guidance for cutoff [...] Standards of Medical Care in Diabetes 2016, [place] [employer]. Diabetes Care. 2016.39(Suppl 1). Performed By: #### 3 040-3, 38982-9, ####[facility] LABORATORYCLIA [id number] [place] [address] [place] Potassium [Moles/Vol] 3.7 mmol/L Normal 3.7-5.1 [facility] Comment on above: Order Comment: Speci men Type: BLOOD SPECIMENOrdering Facility: [facility] Address: [address] [place] [address] Performed By: #### 3 040-3, , ####[facility] LABORATORYCLIA [id number] [place] [address] [place] Protein [Mass/Vol] 8.4 g/dL High 6.3-8.0 [facility] Comment on above: Order Comment: Speci men Type: BLOOD SPECIMENOrdering Facility: [facility] Address: [address] [place] [address] Performed By: #### 3 040-3, , ####[facility] LABORATORYCLIA [id number] [place] [address] [place] Sodium [Moles/Vol] 130 mmol/L Low 136-144 [facility] Comment on above: Order Comment: Speci men Type: BLOOD SPECIMENOrdering Facility: [facility] Address: [address] [place] [address] Performed By: #### 3 040-3, , ####[facility] LABORATORYCLIA [id number] [place] [address] [place] Urea nitrogen [Mass/Vol] 37 mg/dL High 9-24 [facility] Comment on above: Order Comment: Speci men Type: BLOOD SPECIMENOrdering Facility: [facility] Address: [address] [place] [address] Performed By: #### 3 040-3, , ####[facility] LABORATORYCLIA [id number] [place] [address] [place] ED PROV NOTEon 08-07-2023 ED PROV NOTE Normal [facility] ED Triage Noteon 08-07-2023 ED Triage Note Normal [facility] Ferritin SerPl-mCncon 2022 Ferritin [Mass/Vol] 723.9 ng/mL High 30.3-565.7 [facility] Comment on above: Order Comment: Speci men Type: BLOOD SPECIMENOrdering Facility: [facility] Address: [place] [address] Performed By: #### 2 276-4, 1987-12 ####[facility] LABORATORYCLIA [id number] [place] [address] [place] HISTORY PHYSICALon 3 HISTORY PHYSICAL Normal [facility] HISTORY PHYSICAL HNO ID: [id number] Author: Cleveland Alberts MD Service: ? Author [...] normal and (more content not included)... Normal [facility] Lipase SerPl-cCncon 08-07-20 Lipase [Catalytic activity/Vol] 154 U/L High 16 [facility] Comment on above: Order Comment: Specbrooks suarez Type: BLOOD SPECIMENOrdering Facility: [facility] Address: [address] [place] [address] Performed By: #### 3 040-3, , ####[facility] LABORATORYCLIA [id number] [place] [address] [place] Magnesium SerPl-mCncon 08-07 Magnesium [Mass/Vol] 1.6 mg/dL Low 1.7-2.3 [facility] Comment on above: Order Comment: Arben [facility] Type: BLOOD SPECIMENOrdering Facility: [facility] Address: [address] [place] [address] Performed By: #### 3 040-3, , ####[facility] LABORATORYCLIA [id number] [place] [address] [place] PT panel Coag (PPP)on 2022 INR Coag (PPP) [Relative time] 1.0 {INR} Normal 0.9-1.3 [facility] Comment on above: Order Comment: Arben suarez Type: BLOOD SPECIMENOrdering Facility: [facility] Address: [address] [place] [address] Result Comment: Karissa min K Antagonist (VKA) Therapeutic Range: INR 2 to 3 (Target INR of 2.5)Note: For patients treated with VKA drugs, such as warfarin, the [place] [employer] 2012 Guideline recommends [...] of 3).Lizy GH, et al. Chest 2012, 141:7S-47SNishimura RA, et al. [facility] 2017, 70: 252-289 Performed By: #### 3 4528-0, 64853-5 ####[facility] LABORATORYCLIA [id number] [place] [address] [place] PT Coag (PPP) [Time] 11.6 s Normal 9.7-13.0 [facility] Comment on above: Order Comment: Speci men Type: BLOOD SPECIMENOrdering Facility: [facility] Address: [address] [place] [address] Performed By: #### 3 4528-0, 47707-6 ####[facility] LABORATORYCLIA [id number] [place] [address] [place] Prealb SerPl-mCncon 08-07-20 23 Prealbumin [Mass/Vol] 18 mg/dL Normal 17-36 [facility] Comment on above: Order Comment: Speci men Type: BLOOD SPECIMENOrdering Facility: [facility] Address: [address] [place] [address] Performed By: #### 3 034-6, 22989-0 ####[facility] LABCLIA [id number] [place] [address] [place] TYPE + SCREENon 08-07-2023 ABO A Normal [facility] Comment on above: Order Comment: Speci men Type: BLOOD SPECIMENOrdering Facility: [facility] Address: [address] [place] [address] Performed By: #### T SCR ####[facility] BLOOD BANKCLIA [id number] [place] [id number] [facility] HISTORICAL AB SCR STATUS Negative Normal [facility] Comment on above: Order Comment: Speci men Type: BLOOD SPECIMENOrdering Facility: [facility] Address: [address] [place] [address] Performed By: #### T SCR ####[facility] BLOOD BANKCLIA [id number] [address] [place] Rh Nom (Bld) Positive Normal [facility] Comment on above: Order Comment: Speci men Type: BLOOD SPECIMENOrdering Facility: [facility] Address: [address] [place] [address] Performed By: #### T SCR ####[facility] BLOOD BANKCLIA [id number] [place] [address] [place] TYPE AND SCREEN EXPIRATION 08/10/2023 23:59 Normal [facility] Comment on above: Order Comment: Speci men Type: BLOOD SPECIMENOrdering Facility: [facility] Address: [address] [place] [address] Performed By: #### T SCR ####[facility] BLOOD BANKCLIA [id number] [place] [address] [place] Transferrin SerPl-mCncon Transferrin [Mass/Vol] 250 mg/dL Normal 200-360 [facility] Comment on above: Order Comment: Speci men Type: BLOOD SPECIMENOrdering Facility: [facility] Address: [address] [place] [address] Performed By: #### 3 034-6, 44329-7 ####[facility] LABCLIA [id number] [place] [address] [place] XR ABDOMEN 1V SUPINEon 08-07 XR ABDOMEN 1V SUPINE Normal [facility] aPTT PPPon 08-07-2023 aPTT Coag (PPP) [Time] 29.9 s Normal 23.0-32.4 [facility] Comment on above: Order Comment: Speci men Type: BLOOD SPECIMENOrdering Facility: [facility] Address: [address] [place] [id number] Performed By: #### 3 4528-0, 03869-9 ####[facility] LABORATORYCLIA [id number] [address] OF [facility] CNPNon 08-05-2023 JAHAIRA Telephone (GASTNO) -- AISHA JULIEN ([id number]) 1955 M Date Time Provider Department 08/05/23 BETY AMIN During your visit today, we recorded the following information about you: Ирина Samuel RN 08/05/2023 4:35 PM Signed Referred from Dr. Linder for EUS w/ FNA for duodenal mass. Dr. Amin please review and advise. H AND P, meds updated in [facility]. Will also forward to Dr. Alberts and [...] control regim (more content not included)... [id number] -- AISHA JULIEN ([id number]) 1955 M Date Time Provider Department 08/05/23 [facility] [id number] During your visit today, we recorded the following information about you: Jessie Zamora, LUCILLE 08/05/2023 10:45 AM Signed Called patient and spoke with him about coming for a visit with Dr. Alberts. Patient understands he was referred by Dr. Linder. Asked patient to bring any past medical history with him. Patient understanding and thankful for call and appointment. *Requested images to be pushed from [employer] 08/05. Also faxed release of information to patients PCP - Dr. Cannon in [facility]. Allergies As of Date: 08/05/2023 (No Known [...] Encounter Status:Closed by JESSIE ZAMORA on 08/05/23 [facility] Judy 07-29-2023 [facility] Tele[facility] ([id number]) -- AISHA JULIEN ([id number]) 1955 M Date Time Provider Department 07/29/23 [facility] [id number] During your visit today, we recorded the following information about you: Vicki Rosario 07/29/2023 3:53 PM Addendum New patient referral from Dr. Linder's office ([phone]) to Dr. Alberts for Duodenal Mass. Contacted the office to resend records. Please advise on scheduling Allergies As of Date: 07/29/2023 (Not on File) Date Reviewed: Never Reviewed Reason for Visit: Appointment [186] Problem List As Of Date: 07/29/2023 (None) Encounter Status:Closed by VICKI ROSARIO on 07/29/23 [facility] Basic Metabolic Panelon 12-0 Anion gap [Moles/Vol] 11.9 mmol/L Normal 6.0-15.0 [facility] Comment on above: Performed By: #### C BC, BMP ####[place] [address] [place] [address] [facility] Calcium [Mass/Vol] 8.5 mg/dL Low 8.6-10.3 [facility] Comment on above: Performed By: #### C BC, BMP ####[place] [address] [place] [address] [place] Chloride [Moles/Vol] 105 mmol/L Normal 98-107 [facility] Comment on above: Performed By: #### C BC, BMP ####[place] [address] [place] [address] [facility] CO2 [Moles/Vol] 26.0 mmol/L Normal 21.0-31.0 [facility] Comment on above: Performed By: #### C BC, BMP ####[address] [address] [facility] Creatinine [Mass/Vol] 1.71 mg/dL Significan t change up 0.70-1.30 [facility] Comment on above: Performed By: #### C BC, BMP ####[place] [address] [place] [address] [place] Creatinine Clr Calc Pharmacy 41.35 [facility] Comment on above: Result Comment: PERF ORMED BY: [facility] [address] [place] [address] PATHOLOGIST DISPOSAL OPERATOR RAHEL TREVINO M.D. Performed By: #### C BC, BMP ####[address] [address] [place] GFR/1.73 sq M.predicted MDRD (S/P/Bld) [Vol rate/Area] 43.064 mL/min/{1.73_m2} [facility] Comment on above: Performed By: #### C BC, BMP ####[place] [place] [address] [facility] Glucose [Mass/Vol] 115 mg/dL High 70-100 [facility] Comment on above: Result Comment: [place] Glucose Reference Range is dependent on time and content of last meal. Glucose of more than 200 mg/dL in a nonstressed, ambulatory subject supports the diagnosis of Diabetes Mellitus. ADA recommended reference range Performed By: #### C SADAF, BMP ####[facility] [id number] [place] [address] [facility] Potassium [Moles/Vol] 3.9 mmol/L Normal 3.5-5.1 [facility] Comment on above: Performed By: #### C SADAF, BMP ####[facility] [address] [place] [address] [facility] Sodium [Moles/Vol] 139 mmol/L Normal 136-145 [facility] Comment on above: Performed By: #### C SADAF, BMP ####[facility] [address] [place] [address] [facility] Urea nitrogen [Mass/Vol] 29 mg/dL High 7-25 [facility] Comment on above: Performed By: #### C SADAF, BMP ####[facility] [address] [place] [address] [facility] Basophils Auto (Bld) [#/Vol] Ordered By: Gela Eller on 07-26-2023 Basophils (Bld) [#/Vol] 0.0 10*3/uL 0.0-0.2 [facility] Basophils/100 WBC Auto (Bld) Ordered By: Gela Eller on 07-26-2023 Basophils/100 WBC (Bld) 0.9 % . [facility] Calcium [Mass/volume] in Ser um or PlasmaOrdered By: Gela Eller on 07-26-2023 Calcium [Mass/Vol] 8.5 mg/dL 8.6-10.3 [facility] Carbon dioxide, total [Moles /volume] in Serum or PlasmaOrdered By: Gela Eller on 07-26-2023 CO2 [Moles/Vol] 26.0 mmol/L 21.0-31.0 [facility] Chloride [Moles/volume] in S sadi or PlasmaOrdered By: Gela Eller on 07-26-2023 Chloride [Moles/Vol] 105 mmol/L 98-107 [facility] Complete Blood Count Auto Di ffon 07-26-2023 Basophils (Bld) [#/Vol] 0.0 10*3/uL Normal 0.0-0.2 [facility] Comment on above: Result Comment: PERF ORMED BY: [facility] [address] [place] [id number] PATHOLOGIST DISPOSAL OPERATOR RAHEL TREVINO M.D. Performed By: #### C SADAF, BMP ####[address] [place] [address] [facility] Basophils/100 WBC (Bld) 0.9 % Normal . [facility] Comment on above: Performed By: #### C SADAF, BMP ####[place] [id number] [place] [id number] [facility] Eosinophils (Bld) [#/Vol] 0.4 10*3/uL Normal 0.0-0.45 [facility] Comment on above: Performed By: #### C SADAF, BMP ####[place] [id number] [facility] Eosinophils/100 WBC (Bld) 7.7 % Normal . [facility] Comment on above: Performed By: #### C SADAF, BMP ####[place] [id number] [facility] Erythrocyte distribution width (RBC) [Ratio] 12.1 % Normal 12.0-14.8 [facility] Comment on above: Performed By: #### C SADAF, BMP ####[address] [address] [facility] Hematocrit (Bld) [Volume fraction] 31.2 % Low 38.8-50.0 [facility] Comment on above: Performed By: #### C BC, BMP ####[place] [id number] [facility] Hemoglobin (Bld) [Mass/Vol] 10.6 g/dL Low 13.0-17.0 [facility] Comment on above: Performed By: #### C SADAF, BMP ####[address] [place] [address] [facility] Lymphocytes (Bld) [#/Vol] 0.8 10*3/uL Low 1.00-4.8 [facility] Comment on above: Performed By: #### C BC, BMP ####[place] [id number] [place] [id number] [facility] Lymphocytes/100 WBC (Bld) 15.8 % Normal . [facility] Comment on above: Performed By: #### C BC, BMP ####[place] [id number] [facility] MCH (RBC) [Entitic mass] 30.1 pg Normal 27.5-35.2 [facility] Comment on above: Performed By: #### C SADAF, BMP ####[place] [id number] [facility] MCV (RBC) [Entitic vol] 88.6 fL Normal 83.5-101 [facility] Comment on above: Performed By: #### C SADAF, BMP ####[place] [id number] [facility] Mean Corpuscular HGB Conc 34.0 g/dL Normal 32.5-35.6 [facility] Comment on above: Performed By: #### C SADAF, BMP ####[place] [id number] [facility] Monocytes (Bld) [#/Vol] 1.1 10*3/uL High 0.0-0.8 [facility] Comment on above: Performed By: #### C BC, BMP ####[place] [id number] [facility] Monocytes/100 WBC (Bld) 22.7 % Normal . [facility] Comment on above: Performed By: #### C BC, BMP ####[place] [id number] [facility] Neutrophils (Bld) [#/Vol] 2.6 10*3/uL Normal 1.8-7.7 [facility] Comment on above: Performed By: #### C BC, BMP ####[place] [id number] [facility] Neutrophils/100 WBC (Bld) 52.9 % Normal . [facility] Comment on above: Performed By: #### C SADAF, BMP ####[address] [address] [facility] NRBC% 0.2 /100{WBC} Normal 0-0.5 [facility] Comment on above: Performed By: #### C SADAF, BMP ####[place] [id number] [facility] Platelet mean volume (Bld) [Entitic vol] 10.2 fL High 6.6-10.1 [facility] Comment on above: Performed By: #### C SADAF, BMP ####[place] [id number] [facility] Platelets (Bld) [#/Vol] 190 10*3/uL Normal 150-450 [facility] Comment on above: Performed By: #### C SADAF, BMP ####[place] [phone] [facility] RBC (Bld) [#/Vol] 3.52 10*6/uL Low 3.90-5.60 [facility] Comment on above: Performed By: #### C SADAF, BMP ####[place] [phone] [facility] WBC (Bld) [#/Vol] 5.0 10*3/uL Normal 4.1-10.5 [facility] Comment on above: Performed By: #### C SADAF, BMP ####[place] [id number] [facility] Creatinine [Mass/volume] in Serum or PlasmaOrdered By: Gela Eller on 07-26-2023 Creatinine [Mass/Vol] 1.71 mg/dL 0.70-1.30 [facility] Comment on above: Delta: 2.86 on 07/2546 Eosinophils Auto (Bld) [#/Vo l]Ordered By: Gela Eller on 07-26-2023 Eosinophils (Bld) [#/Vol] 0.4 10*3/uL 0.0-0.45 [facility] Eosinophils/100 WBC Auto (Bl d)Ordered By: Gela Eller on 07-26-2023 Eosinophils/100 WBC (Bld) 7.7 % . [facility] Erythrocyte distribution wid th Auto (RBC) [Ratio]Ordered By: Gela Eller on 07-26-2023 Erythrocyte distribution width (RBC) [Ratio] 12.1 % 12.0-14.8 [facility] Glucose [Mass/volume] in Ser um or PlasmaOrdered By: Gela Eller on 07-26-2023 Glucose [Mass/Vol] 115 mg/dL 70-100 [facility] Comment on above: ADA recommended refe rence rangeRandom Glucose Reference Range is dependent on time and content of last meal. Glucose of more than 200 mg/dL in a nonstressed, ambulatory subject supports the diagnosis of Diabetes Mellitus. Hematocrit Auto (Bld) [Volum e fraction]Ordered By: Gela Eller on 07-26-2023 Hematocrit (Bld) [Volume fraction] 31.2 % 38.8-50.0 [facility] Hemoglobin [Mass/volume] in BloodOrdered By: Gela Eller on 07-26-2023 Hemoglobin (Bld) [Mass/Vol] 10.6 g/dL 13.0-17.0 [facility] Leukocytes [#/volume] correc johnnie for nucleated erythrocytes in Blood by Automated counOrdered By: Gela Eller on 07-26-2023 WBC corrected for nucl RBC Auto (Bld) [#/Vol] 5.0 10*3/uL 4.1-10.5 [facility] Lymphocytes Auto (Bld) [#/Vo l]Ordered By: Gela Eller on 07-26-2023 Lymphocytes (Bld) [#/Vol] 0.8 10*3/uL 1.00-4.8 [facility] Lymphocytes/100 WBC Auto (Bl d)Ordered By: Gela Eller on 07-26-2023 Lymphocytes/100 WBC (Bld) 15.8 % . [facility] MCH Auto (RBC) [Entitic mass ]Ordered By: Gela Eller on 07-26-2023 MCH (RBC) [Entitic mass] 30.1 pg 27.5-35.2 [facility] MCHC Auto (RBC) [Mass/Vol]Or dered By: Gela Eller on 07-26-2023 MCHC (RBC) [Mass/Vol] 34.0 g/dL 32.5-35.6 [facility] MCV Auto (RBC) [Entitic vol] Ordered By: Gela Eller on 07-26-2023 MCV (RBC) [Entitic vol] 88.6 fL 83.5-101 [facility] Monocytes Auto (Bld) [#/Vol] Ordered By: Gela Eller on 07-26-2023 Monocytes (Bld) [#/Vol] 1.1 10*3/uL 0.0-0.8 [facility] Monocytes/100 WBC Auto (Bld) Ordered By: Gela Eller on 07-26-2023 Monocytes/100 WBC (Bld) 22.7 % . [facility] Neutrophils Auto (Bld) [#/Vo l]Ordered By: Gela Eller on 07-26-2023 Neutrophils (Bld) [#/Vol] 2.6 10*3/uL 1.8-7.7 [facility] Neutrophils/100 WBC Auto (Bl d)Ordered By: Gela Eller on 07-26-2023 Neutrophils/100 WBC (Bld) 52.9 % . [facility] No Panel InformationOrdered By: Gela Eller on 07-26-2023 Estimated GFR (CKD-EPI) 43.064 mL/Min [facility] Creatinine Clearance (Chem 41.35 [facility] Nucleated erythrocytes [Pres ence] in Blood by Automated countOrdered By: Gela Eller on 07-26-2023 Nucleated RBC Auto Ql (Bld) 0.2 /100{WBC} 0-0.5 [facility] Platelet mean volume Auto (B ld) [Entitic vol]Ordered By: Gela Eller on 07-26-2023 Platelet mean volume (Bld) [Entitic vol] 10.2 fL 6.6-10.1 [facility] Platelets Auto (Bld) [#/Vol] Ordered By: Gela Eller on 07-26-2023 Platelets (Bld) [#/Vol] 190 10*3/uL 150-450 [facility] Potassium [Moles/volume] in Serum or PlasmaOrdered By: Gela Eller on 07-26-2023 Potassium [Moles/Vol] 3.9 mmol/L 3.5-5.1 [facility] RBC Auto (Bld) [#/Vol]Ordere d By: Gela Eller on 07-26-2023 RBC (Bld) [#/Vol] 3.52 10*6/uL 3.90-5.60 [facility] Serum or plasma anion gap de terminationOrdered By: Gela Eller on 07-26-2023 Anion gap [Moles/Vol] 11.9 mmol/L 6.0-15.0 [facility] Sodium [Moles/volume] in Ser um or PlasmaOrdered By: Gela Eller on 07-26-2023 Sodium [Moles/Vol] 139 mmol/L 136-145 [facility] Urea nitrogen [Mass/volume] in Serum or PlasmaOrdered By: Gela Rhoadese on 07-26-2023 Urea nitrogen [Mass/Vol] 29 mg/dL 7-25 [facility] WBC Auto (Bld) [#/Vol]Ordere d By: Gela Eller on 07-26-2023 WBC (Bld) [#/Vol] 5.0 10*3/uL 4.1-10.5 [facility] Alanine aminotransferase [En zymatic activity/volume] in Serum or PlasmaOrdered By: Gela Eller on 07-25-2023 ALT [Catalytic activity/Vol] 9 U/L 752 [facility] Albumin [Mass/volume] in Ser um or Plasma by Bromocresol green (BCG) dye binding methoOrdered By: Gela Eller on 07-25-2023 Albumin BCG dye [Mass/Vol] 3.4 g/dL 3.5-5.7 [facility] Alkaline phosphatase [Enzyma tic activity/volume] in Serum or PlasmaOrdered By: Gela Eller on 07-25-2023 ALP [Catalytic activity/Vol] 60 U/L 34-104 [facility] Aspartate aminotransferase [ Enzymatic activity/volume] in Serum or PlasmaOrdered By: Gela Eller on 07-25-2023 AST [Catalytic activity/Vol] 16 U/L 13-39 [facility] Basic Metabolic Panelon 12-0 Anion gap [Moles/Vol] 11.8 mmol/L Normal 6.0-15.0 [facility] Comment on above: Order Comment: Comme nt pls call w K level Performed By: #### B MP ####[place] [address] [place] [address] [facility] Calcium [Mass/Vol] 8.3 mg/dL Low 8.6-10.3 [facility] Comment on above: Order Comment: Comme nt pls call w K level Performed By: #### B MP ####[address] [address] [facility] Chloride [Moles/Vol] 97 mmol/L Low 98-107 [facility] Comment on above: Order Comment: Comme nt pls call w K level Performed By: #### B MP ####[address] [address] [facility] CO2 [Moles/Vol] 31.8 mmol/L High 21.0-31.0 [facility] Comment on above: Order Comment: Comme nt pls call w K level Performed By: #### B MP ####[address] [address] [facility] Creatinine [Mass/Vol] 3.42 mg/dL Significan t change up 0.70-1.30 [facility] Comment on above: Order Comment: Comme nt pls call w K level Performed By: #### B MP ####[address] [address] [place] Creatinine Clr Calc Pharmacy 20.67 [facility] Comment on above: Order Comment: Comme nt pls call w K level Result Comment: PERF ORMED BY: [facility] [address] [place] [id number] PATHOLOGIST DISPOSAL OPERATOR RAHEL TREVINO M.D. Performed By: #### B MP ####[place] [address] [place] [id number] [facility] GFR/1.73 sq M.predicted MDRD (S/P/Bld) [Vol rate/Area] 18.745 mL/min/{1.73_m2} Normal [facility] Comment on above: Order Comment: Comme nt pls call w K level Performed By: #### B MP ####[place] [id number] [facility] Glucose [Mass/Vol] 86 mg/dL Normal 70-100 [facility] Comment on above: Order Comment: Comme nt pls call w K level Result Comment: [place] Glucose Reference Range is dependent on time and content of last meal. Glucose of more than 200 mg/dL in a nonstressed, ambulatory subject supports the diagnosis of Diabetes Mellitus. ADA recommended reference range Performed By: #### B MP ####[place] [id number] [facility] Potassium [Moles/Vol] 3.6 mmol/L Normal 3.5-5.1 [facility] Comment on above: Order Comment: Comme nt pls call w K level Performed By: #### B MP ####[place] [id number] [facility] Sodium [Moles/Vol] 137 mmol/L Normal 136-145 [facility] Comment on above: Order Comment: Comme nt pls call w K level Performed By: #### B MP ####[place] [id number] [facility] Urea nitrogen [Mass/Vol] 50 mg/dL High 7-25 [facility] Comment on above: Order Comment: Comme nt pls call w K level Performed By: #### B MP ####[place] [id number] [facility] Bilirubin.total [Mass/volume ] in Serum or PlasmaOrdered By: Gela Eller on 07-25-2023 Bilirubin [Mass/Vol] 0.7 mg/dL 0.3-1.0 [facility] Complete Blood Count Auto Di ffon 07-25-2023 Basophils (Bld) [#/Vol] 0.1 10*3/uL Normal 0.0-0.2 [facility] Comment on above: Result Comment: PERF ORMED BY: [place] [address] PATHOLOGIST DISPOSAL OPERATOR RAHEL TREVINO M.D. Performed By: #### C MP, CBC #### [address] Basophils/100 WBC (Bld) 0.9 % Normal . [facility] Comment on above: Performed By: #### C MP, CBC #### [address] Eosinophils (Bld) [#/Vol] 0.5 10*3/uL High 0.0-0.45 [facility] Comment on above: Performed By: #### C MP, CBC #### [address] Eosinophils/100 WBC (Bld) 7.7 % Normal . [facility] Comment on above: Performed By: #### C MP, CBC #### [address] Erythrocyte distribution width (RBC) [Ratio] 12.4 % Normal 12.0-14.8 [facility] Comment on above: Performed By: #### C MP, CBC #### [address] Hematocrit (Bld) [Volume fraction] 33.8 % Low 38.8-50.0 [facility] Comment on above: Performed By: #### C MP, CBC #### [address] Hemoglobin (Bld) [Mass/Vol] 11.3 g/dL Low 13.0-17.0 [facility] Comment on above: Performed By: #### C MP, CBC #### [facility] [address] Lymphocytes (Bld) [#/Vol] 0.6 10*3/uL Low 1.00-4.8 [facility] Comment on above: Performed By: #### C MP, CBC #### [facility] [address] Lymphocytes/100 WBC (Bld) 9.8 % Normal . [facility] Comment on above: Performed By: #### C MP, CBC #### [facility] [address] MCH (RBC) [Entitic mass] 29.8 pg Normal 27.5-35.2 [facility] Comment on above: Performed By: #### C MP, CBC #### [facility] [address] MCV (RBC) [Entitic vol] 89.0 fL Normal 83.5-101 [facility] Comment on above: Performed By: #### C MP, CBC #### [facility] [address] Mean Corpuscular HGB Conc 33.5 g/dL Normal 32.5-35.6 [facility] Comment on above: Performed By: #### C MP, CBC #### [facility] [address] [place] [address] [place] Monocytes (Bld) [#/Vol] 1.3 10*3/uL High 0.0-0.8 [facility] Comment on above: Performed By: #### C MP, CBC #### [facility] [address] [place] [address] [place] Monocytes/100 WBC (Bld) 21.3 % Normal . [facility] Comment on above: Performed By: #### C MP, CBC #### [facility] [address] Neutrophils (Bld) [#/Vol] 3.6 10*3/uL Normal 1.8-7.7 [facility] Comment on above: Performed By: #### C MP, CBC #### [facility] [address] Neutrophils/100 WBC (Bld) 60.3 % Normal . [facility] Comment on above: Performed By: #### C MP, CBC #### [facility] [address] NRBC% 0.1 /100{WBC} Normal 0-0.5 [facility] Comment on above: Performed By: #### C MP, CBC #### [address] Platelet mean volume (Bld) [Entitic vol] 10.7 fL High 6.6-10.1 [facility] Comment on above: Performed By: #### C MP, CBC #### [address] Platelets (Bld) [#/Vol] 188 10*3/uL Significant change down 150-450 [facility] Comment on above: Performed By: #### C MP, CBC #### [address] RBC (Bld) [#/Vol] 3.80 10*6/uL Low 3.90-5.60 [facility] Comment on above: Performed By: #### C MP, CBC #### [address] WBC (Bld) [#/Vol] 5.9 10*3/uL Normal 4.1-10.5 [facility] Comment on above: Performed By: #### C MP, CBC #### [address] Comprehensive Metabolic Pane jefry 07-25-2023 Albumin [Mass/Vol] 3.4 g/dL Low 3.5-5.7 [facility] Comment on above: Performed By: #### C MP, CBC #### [address] Albumin/Globulin [Mass ratio] 1.3 {ratio} Normal [facility] Comment on above: Performed By: #### C MP, CBC #### [facility] [address] ALP [Catalytic activity/Vol] 60 U/L Normal 34-104 [facility] Comment on above: Performed By: #### C MP, CBC #### [facility] [address] ALT [Catalytic activity/Vol] 9 U/L Normal 7-52 [facility] Comment on above: Performed By: #### C MP, CBC #### [facility] [address] Anion gap [Moles/Vol] 11.5 mmol/L Normal 6.0-15.0 [facility] Comment on above: Performed By: #### C MP, CBC #### [facility] [address] AST [Catalytic activity/Vol] 16 U/L Normal 13-39 [facility] Comment on above: Performed By: #### C MP, CBC #### [facility] [address] Bilirubin [Mass/Vol] 0.7 mg/dL Normal 0.3-1.0 [facility] Comment on above: Performed By: #### C MP, CBC #### [facility] [address] Calcium [Mass/Vol] 8.6 mg/dL Normal 8.6-10.3 [facility] Comment on above: Performed By: #### C MP, CBC #### [facility] [address] [place] [id number] [place] Chloride [Moles/Vol] 98 mmol/L Normal 98-107 [facility] Comment on above: Performed By: #### C MP, CBC #### [facility] [address] CO2 [Moles/Vol] 31.4 mmol/L High 21.0-31.0 [facility] Comment on above: Performed By: #### C MP, CBC #### [facility] [address] Creatinine [Mass/Vol] 2.86 mg/dL Significan t change up 0.70-1.30 [facility] Comment on above: Performed By: #### C MP, CBC #### [address] Creatinine Clr Calc Pharmacy 24.72 [facility] Comment on above: Result Comment: PERF ORMED BY: [place] [address] PATHOLOGIST DISPOSAL OPERATOR RAHEL TREVINO M.D. Performed By: #### C MP, CBC #### [address] GFR/1.73 sq M.predicted MDRD (S/P/Bld) [Vol rate/Area] 23.231 mL/min/{1.73_m2} [facility] Comment on above: Performed By: #### C MP, CBC #### [address] Globulin (S) [Mass/Vol] 2.7 g/dL [facility] Comment on above: Performed By: #### C MP, CBC #### [address] Glucose [Mass/Vol] 81 mg/dL Normal 70-100 [facility] Comment on above: Result Comment: [place] Glucose Reference Range is dependent on time and content of last meal. Glucose of more than 200 mg/dL in a nonstressed, ambulatory subject supports the diagnosis of Diabetes Mellitus. ADA recommended reference range Performed By: #### C MP, CBC #### [address] Potassium [Moles/Vol] 3.9 mmol/L Normal 3.5-5.1 [facility] Comment on above: Performed By: #### C MP, CBC #### [address] Protein [Mass/Vol] 6.1 g/dL Significant change down 6.4-8.9 [facility] Comment on above: Performed By: #### C MP, CBC #### [facility] [address] Sodium [Moles/Vol] 137 mmol/L Normal 136-145 [facility] Comment on above: Performed By: #### C MP, CBC #### [facility] [address] Urea nitrogen [Mass/Vol] 44 mg/dL High 7-25 [facility] Comment on above: Performed By: #### C MP, CBC #### [facility] [address] Creatinine, Urine (Random)on 07-25-2023 Creatinine, Urine (Random) 141.0 mg/dL High 14.0-26.0 [facility] Comment on above: Performed By: #### U NA, UCREA #### [facility] [address] Globulin Calc (S) [Mass/Vol] Ordered By: Gela Eller on 07-25-2023 Globulin (S) [Mass/Vol] 2.7 g/dL [facility] Jefry 07-25-2023 L ------ Specimen: [id number] Received: 07/25/23 Status: ANT Castro Num: [id number] Spec Type: Surgical Subm Dr: Nohemy Linder MD Tissues: A Duodenum - Biopsy (DUODENUM BX) B Gastric Biopsy (GASTRIC BX) Procedures: HE/4, Gross/Micro L4/2, H PYLORI Age/ Patient Sex Location Account Attending Physician Aisha Julien/[facility] [id number] Gela Eller MD SPEC NUM: [id number] RECD: 07/25/23 STATUS: ANT GOYAL NUM: [id number] ALLISON: 07/25/23- SUBM DR: Nohemy Linder MD ENTERED: 07/25/[address]: MIA TYPE: Surgical DEPT: S ORDERED: HE/4, Gross/Micro [...] infection Clinical Information Dizzy, abnormal labs Specimen: [id number] Received: 07/25/23 Status: ANT Goyal Num: [id number] Spec Type: Surgical Subm Dr: Nohemy Linder MD Tissues: A Duodenum - Biopsy (DUODENUM BX) B Gastric Biopsy (GASTRIC BX) Procedures: HE/4, Gross/Micro L4/2, H PYLORI Patient: WilyAisha L [id number] (Continued) Specimen: [id number] Received: 07/25/23 (Continued) Signed (signature on file) Vignesh Koehler MD 07/28/231999 Specimen: [id number] Received: 07/25/23 Status: ANT Goyal Num: [id number] Spec Type: Surgical Subm Dr: Nohemy Linder MD Tissues: A Duodenum - Biopsy (DUODENUM BX) B Gastric Biopsy (GASTRIC BX) Procedures: HE/4, Gross/Micro L4/2, H PYLORI Patient: WilyAisha Naveen [id number] (Continued) Specimen: [id number] Received: 07/25/23 (Continued) Gross Description A. Received [...] microscopic examination confirms the diagnosis. CPT Codes 32934q1, 34962z4 Specimen: [id number] Received: 07/25/23 Status: ANT Goyal Num: [id number] Spec Type: Surgical Subm Dr: Nohemy Linder MD Tissues: A Duodenum - Biopsy (DUODENUM BX) B Gastric Biopsy (GASTRIC BX) Procedures: HE/4, Gross/Micro L4/2, H PYLORI Patient: Aisha Julien [id number] (Continued) Signed (signature on file) Vignesh Koehler MD 07/28/231999 [facility] Protein [Mass/volume] in Ser um or PlasmaOrdered By: Gela Eller on 07-25-2023 Protein [Mass/Vol] 6.1 g/dL 6.4-8.9 [facility] Comment on above: Delta: 7.8 on Serum or plasma albumin/glob ulin mass ratioOrdered By: Gela Eller on 07-25-2023 Albumin/Globulin [Mass ratio] 1.3 {ratio} [facility] Sodium, Urine (Random)on Sodium (U) [Moles/Vol] 41 mmol/L Normal [facility] Comment on above: Result Comment: No r eference range established PERFORMED BY: [place] [address] PATHOLOGIST DISPOSAL OPERATOR RAHEL TREVINO M.D. Performed By: #### U NACHERRY #### [address] Alanine aminotransferase [En zymatic activity/volume] in Serum or PlasmaOrdered By: Jean Paul Gutiérrez on 07-24-2023 ALT [Catalytic activity/Vol] 12 U/L 7-52 [facility] Albumin [Mass/volume] in Ser um or Plasma by Bromocresol green (BCG) dye binding methoOrdered By: Jean Paul Gutiérrez on 07-24-2023 Albumin BCG dye [Mass/Vol] 4.3 g/dL 3.5-5.7 [facility] Alkaline phosphatase [Enzyma tic activity/volume] in Serum or PlasmaOrdered By: Jean Paul Gutiérrez on 07-24-2023 ALP [Catalytic activity/Vol] 72 U/L 34-104 [facility] Aspartate aminotransferase [ Enzymatic activity/volume] in Serum or PlasmaOrdered By: Jean Paul Gutiérrez on 07-24-2023 AST [Catalytic activity/Vol] 24 U/L 13-39 [facility] Automated erythrocytes count in urine sediment (number/area)Ordered By: Jean Paul Gutiérrez on 07-24-2023 RBC Auto (Urine sed) [#/Area] 5-9 [HPF] 0-4 [facility] Automated leukocytes count i n urine sediment (number/area)Ordered By: Jean Paul Gutiérrez on 07-24-2023 WBC Auto (Urine sed) [#/Area] 0-1 [HPF] 0-4 [facility] Basic Metabolic Panelon 11-3 0-2022 Anion gap [Moles/Vol] 18.0 mmol/L High 6.0-15.0 [facility] Comment on above: Performed By: #### C MP, CBC #### [facility] [address] [place] [id number] [place] Calcium [Mass/Vol] 9.6 mg/dL Normal 8.6-10.3 [facility] Comment on above: Performed By: #### C MP, CBC #### [facility] [address] [place] [address] [place] Chloride [Moles/Vol] 84 mmol/L Low 98-107 [facility] Comment on above: Performed By: #### C MP, CBC #### [facility] [address] [place] [address] [place] CO2 [Moles/Vol] 34.9 mmol/L High 21.0-31.0 [facility] Comment on above: Performed By: #### C MP, CBC #### [facility] [address] [place] [address] [place] Creatinine [Mass/Vol] 4.59 mg/dL High 0.70-1.30 [facility] Comment on above: Performed By: #### C MP, CBC #### [facility] [address] [place] [id number] [place] Creatinine Clr Calc Pharmacy 15.40 [facility] Comment on above: Performed By: #### C MP, CBC #### [facility] [address] [place] [address] [place] GFR/1.73 sq M.predicted MDRD (S/P/Bld) [Vol rate/Area] 13.168 mL/min/{1.73_m2} [facility] Comment on above: Performed By: #### C MP, CBC #### [facility] [address] [place] [id number] [place] Glucose [Mass/Vol] 128 mg/dL High 70-100 [facility] Comment on above: Result Comment: [place] Glucose Reference Range is dependent on time and content of last meal. Glucose of more than 200 mg/dL in a nonstressed, ambulatory subject supports the diagnosis of Diabetes Mellitus. ADA recommended reference range Performed By: #### C MP, CBC #### [facility] [address] Potassium [Moles/Vol] 2.9 mmol/L Off scale low 3.5-5.1 [facility] Comment on above: Result Comment: Crit ical Result Called to and read back by: ANDREAS CARABALLO at: 07/24/2023 13:30:58 by:MLG Performed By: #### C MP, CBC #### [facility] [address] Sodium [Moles/Vol] 134 mmol/L Low 136-145 [facility] Comment on above: Performed By: #### C MP, CBC #### [facility] [address] Urea nitrogen [Mass/Vol] 56 mg/dL High 7-25 [facility] Comment on above: Performed By: #### C MP, CBC #### [facility] [address] Basophils Auto (Bld) [#/Vol] Ordered By: Jean Paul Gutiérrez on 07-24-2023 Basophils (Bld) [#/Vol] 0.0 10*3/uL 0.0-0.2 [facility] Basophils/100 WBC Auto (Bld) Ordered By: Jean Paul Gutiérrez on 07-24-2023 Basophils/100 WBC (Bld) 0.5 % . [facility] Bilirubin Test strip Ql (U)O rdered By: Jean Paul Gutiérrez on 07-24-2023 Bilirubin Ql (U) Negative Negative [facility] Bilirubin.direct [Mass/volum e] in Serum or PlasmaOrdered By: Jean Paul Gutiérrez on 07-24-2023 Bilirubin.direct [Mass/Vol] 0.20 mg/dL 0.03-0.18 [facility] Bilirubin.total [Mass/volume ] in Serum or PlasmaOrdered By: Jean Paul Gutiérrez on 07-24-2023 Bilirubin [Mass/Vol] 0.8 mg/dL 0.3-1.[address] [facility] CT abdomen pelvis wo conon 1 09-23-2022 CT abdomen pelvis wo con [facility] [place] [address] [place] [address] CT Scan Report Signed Patient: Aisha Julien MR#: [id number] 79 : 1955 Acct:[id number] Age/Sex: 68 / M ADM Date: 07/24/23 Loc: ER Room: Type: [facility] ER Attending Dr: Copies to: Jean [...] 07/24/2023 Impression dictated by: Lebron Santa Jr., EstephaniaOAlma07/24/2023 2:43 PM Dictation Location: [place] [address] Transcribed By: [facility] 07/24/23 1443 Dictated By: Lebron Santa Jr, DO 07/24/23 1428 Signed By: 07/24/23 1443 Normal [facility] Calcium [Mass/volume] in Ser um or PlasmaOrdered By: Jean Paul Gutiérrez on 07-24-2023 Calcium [Mass/Vol] 9.6 mg/dL 8.6-10.3 [facility] Carbon dioxide, total [Moles /volume] in Serum or PlasmaOrdered By: Jean Paul Gutiérrez on 07-24-2023 CO2 [Moles/Vol] 34.9 mmol/L 21.0-31.0 [facility] Chloride [Moles/volume] in S sadi or PlasmaOrdered By: Jean Paul Gutiérrez on 07-24-2023 Chloride [Moles/Vol] 84 mmol/L 98-107 [facility] Color Auto (U)Ordered By: Vincent Gutiérrez on 07-24-2023 Color (U) Yellow Yellow [facility] Complete Blood Count Auto Di ffon 07-24-2023 Basophils (Bld) [#/Vol] 0.0 10*3/uL Normal 0.0-0.2 [facility] Comment on above: Result Comment: PERF ORMED BY: [place] [address] PATHOLOGIST DISPOSAL OPERATOR RAHEL TREVINO M.D. Performed By: #### C MP, CBC #### [place] [address] [place] Basophils/100 WBC (Bld) 0.5 % Normal . [facility] Comment on above: Performed By: #### C MP, CBC #### [place] [address] [place] Eosinophils (Bld) [#/Vol] 0.1 10*3/uL Normal 0.0-0.45 [facility] Comment on above: Performed By: #### C MP, CBC #### [address] Eosinophils/100 WBC (Bld) 1.0 % Normal . [facility] Comment on above: Performed By: #### C MP, CBC #### [address] Erythrocyte distribution width (RBC) [Ratio] 12.4 % Normal 12.0-14.8 [facility] Comment on above: Performed By: #### C MP, CBC #### [address] Hematocrit (Bld) [Volume fraction] 40.5 % Normal 38.8-50.0 [facility] Comment on above: Performed By: #### C MP, CBC #### [place] [address] [place] Hemoglobin (Bld) [Mass/Vol] 13.7 g/dL Normal 13.0-17.0 [facility] Comment on above: Performed By: #### C MP, CBC #### [place] [address] [place] Lymphocytes (Bld) [#/Vol] 0.9 10*3/uL Low 1.00-4.8 [facility] Comment on above: Performed By: #### C MP, CBC #### [address] Lymphocytes/100 WBC (Bld) 12.6 % Normal . [facility] Comment on above: Performed By: #### C MP, CBC #### [address] MCH (RBC) [Entitic mass] 29.8 pg Normal 27.5-35.2 [facility] Comment on above: Performed By: #### C MP, CBC #### [address] MCV (RBC) [Entitic vol] 88.1 fL Normal 83.5-101 [facility] Comment on above: Performed By: #### C MP, CBC #### [address] Mean Corpuscular HGB Conc 33.8 g/dL Normal 32.5-35.6 [facility] Comment on above: Performed By: #### C MP, CBC #### [address] Monocytes (Bld) [#/Vol] 0.8 10*3/uL Normal 0.0-0.8 [facility] Comment on above: Performed By: #### C MP, CBC #### [address] Monocytes/100 WBC (Bld) 21.73 % High 0.00-20.00 [facility] Comment on above: Result Comment: For adults in ED, MDW > 20.0 may be associated with a higher risk of sepsis during the first 12 hrs of hospital admission Performed By: #### C MP, CBC #### [place] [address] [place] Monocytes/100 WBC (Bld) 10.3 % Normal . [facility] Comment on above: Performed By: #### C MP, CBC #### [place] [address] [place] Neutrophils (Bld) [#/Vol] 5.5 10*3/uL Normal 1.8-7.7 [facility] Comment on above: Performed By: #### C MP, CBC #### [facility] [address] Neutrophils/100 WBC (Bld) 75.6 % Normal . [facility] Comment on above: Performed By: #### C MP, CBC #### [facility] [address] NRBC% 0.2 /100{WBC} Normal 0-0.5 [facility] Comment on above: Performed By: #### C MP, CBC #### [facility] [address] Platelet mean volume (Bld) [Entitic vol] 10.8 fL High 6.6-10.1 [facility] Comment on above: Performed By: #### C MP, CBC #### [facility] [address] [place] [address] [place] Platelets (Bld) [#/Vol] 256 10*3/uL Normal 150-450 [facility] Comment on above: Performed By: #### C MP, CBC #### [facility] [address] RBC (Bld) [#/Vol] 4.60 10*6/uL Normal 3.90-5.60 [facility] Comment on above: Performed By: #### C MP, CBC #### [facility] [address] [place] [address] [place] WBC (Bld) [#/Vol] 7.3 10*3/uL Normal 4.1-10.5 [facility] Comment on above: Performed By: #### C MP, CBC #### [facility] [address] Creatinine [Mass/volume] in Serum or PlasmaOrdered By: Jean Paul Gutiérrez on 07-24-2023 Creatinine [Mass/Vol] 4.59 mg/dL 0.70-1.30 [facility] Creatinine [Mass/volume] in UrineOrdered By: Gela Eller on 07-24-2023 Creatinine (U) [Mass/Vol] 141.0 mg/dL 14.0-26.0 [facility] Dipstick and Microscopicon 1 09-23-2022 Appearance (U) Clear Normal Clear [facility] Comment on above: Order Comment: Name Collection Type:: Clean-Voided Midstream Performed By: #### C MP, CBC #### [facility] [address] [place] [address] [place] Bacteria,Urine None Seen Normal None Seen [facility] Comment on above: Order Comment: Name Collection Type:: Clean-Voided Midstream Performed By: #### C MP, CBC #### [facility] [address] [place] [address] [place] Bilirubin,Urine Negative Normal Negative [facility] Comment on above: Order Comment: Name Collection Type:: Clean-Voided Midstream Performed By: #### C MP, CBC #### [facility] [address] [place] [address] [place] Color (U) Yellow Normal Yellow [facility] Comment on above: Order Comment: Name Collection Type:: Clean-Voided Midstream Performed By: #### C MP, CBC #### [facility] [address] [place] [id number] [place] Glucose Ql (U) Normal Normal Normal [facility] Comment on above: Order Comment: Name Collection Type:: Clean-Voided Midstream Performed By: #### C MP, CBC #### [facility] [address] [place] [address] [place] Hyaline Casts,Urine None Seen Normal 0-8 [facility] Comment on above: Order Comment: Name Collection Type:: Clean-Voided Midstream Result Comment: PERF ORMED BY: [place] [address] PATHOLOGIST DISPOSAL OPERATOR RAHEL TREVINO M.D. Performed By: #### C MP, CBC #### [facility] [address] [place] [address] [place] Ketones Ql (U) Trace High Negative [facility] Comment on above: Order Comment: Name Collection Type:: Clean-Voided Midstream Performed By: #### C MP, CBC #### [facility] [address] Leukocyte esterase Test strip Ql (U) Negative Normal Negative [facility] Comment on above: Order Comment: Name Collection Type:: Clean-Voided Midstream Performed By: #### C MP, CBC #### [facility] [address] [place] [address] [place] Nitrite,Urine Negative Normal Negative [facility] Comment on above: Order Comment: Name Collection Type:: Clean-Voided Midstream Performed By: #### C MP, CBC #### [place] [address] [place] Occult Blood,Urine Negative Normal Negative [facility] Comment on above: Order Comment: Name Collection Type:: Clean-Voided Midstream Result Comment: PERF ORMED BY: [place] [address] PATHOLOGIST DISPOSAL OPERATOR RAHEL TREVINO M.D. Performed By: #### C MP, CBC #### [place] [address] [place] pH (U) 5.5 [pH] Normal 5.0-9.0 [facility] Comment on above: Order Comment: Name Collection Type:: Clean-Voided Midstream Performed By: #### C MP, CBC #### [facility] [address] [place], [place] [id number] [place] Protein (U) [Mass/Vol] 30 mg/dL High Negative [facility] Comment on above: Order Comment: Name Collection Type:: Clean-Voided Midstream Performed By: #### C MP, CBC #### [facility] [address] [place] [address] [place] RBC,Urine 5-9 High 0-4 [facility] Comment on above: Order Comment: Name Collection Type:: Clean-Voided Midstream Performed By: #### C MP, CBC #### [facility] [address] [place] [address] [place] Specificy [place],Urine 1.015 Normal 1.001-1.03 0 [facility] Comment on above: Order Comment: Name Collection Type:: Clean-Voided Midstream Performed By: #### C MP, CBC #### [facility] [address] Squamous Epithelial Cell,Urine None Seen Normal 0-2 [facility] Comment on above: Order Comment: Name Collection Type:: Clean-Voided Midstream Performed By: #### C MP, CBC #### [facility] [address] Urobilinogen,Urine Normal Normal Normal [facility] Comment on above: Order Comment: Name Collection Type:: Clean-Voided Midstream Performed By: #### C MP, CBC #### [address] WBC LM.HPF (Urine sed) [#/Area] 0 /[HPF] Normal 0-4 [facility] Comment on above: Order Comment: Name Collection Type:: Clean-Voided Midstream Performed By: #### C MP, CBC #### [address] ECG 12 lead ECGon 07-24-2023 ECG 12 lead ECG [facility] Main [place] [address] [place] [address] Electrocardiograph Report Signed Patient: Aisha Julien MR#: [id number] 79 : 1955 Acct:[id number] Age/Sex: 68 / M ADM Date: 07/24/23 Loc: Room: [address] [place] [address] Type: ADM IN Attending Dr: Gela Eller [...] rhythm Confirmed by JEAN PAUL GUTIÉRREZ DO ([id number]) on 07/25/2023 4:32:20 PM Referred By: Electronically Signed By:JEAN PAUL GUTIÉRREZ DO Transcribed By: YESY Signed By Jean Paul Gutiérrez DO 07/25 1632 Normal [facility] ECG 12 lead ECG [place] [address] Electrocardiograph Report Signed Patient: Aisha Julien MR#: [id number] 79 : 1955 Acct:[id number] Age/Sex: 68 / M ADM Date: 07/24/23 Loc: ER Room: Type: [facility] ER Attending Dr: Ordering Provider: Jean [...] lengthened Confirmed by JEAN PAUL GUTIÉRREZ DO ([id number]) on 07/24/2023 3:51:38 PM Referred By: Electronically Signed By:JEAN PAUL GUTIÉRREZ DO Transcribed By: YESY Signed By Jean Paul Gutiérrez DO 07/24 1551 Normal [facility] Eosinophils Auto (Bld) [#/Vo l]Ordered By: Jean Paul Gutiérrez on 07-24-2023 Eosinophils (Bld) [#/Vol] 0.1 10*3/uL 0.0-0.45 [facility] Eosinophils/100 WBC Auto (Bl d)Ordered By: Jean Paul Gutiérrez on 07-24-2023 Eosinophils/100 WBC (Bld) 1.0 % . [facility] Erythrocyte distribution wid th Auto (RBC) [Ratio]Ordered By: Jean Paul Gutiérrez on 07-24-2023 Erythrocyte distribution width (RBC) [Ratio] 12.4 % 12.0-14.8 [facility] Globulin Calc (S) [Mass/Vol] Ordered By: Jean Paul Gutiérrez on 07-24-2023 Globulin (S) [Mass/Vol] 3.5 g/dL [facility] Glucose [Mass/volume] in Ser um or PlasmaOrdered By: Jean Paul Gutiérrez on 07-24-2023 Glucose [Mass/Vol] 128 mg/dL 70-100 [facility] Comment on above: ADA recommended refe rence rangeRandom Glucose Reference Range is dependent on time and content of last meal. Glucose of more than 200 mg/dL in a nonstressed, ambulatory subject supports the diagnosis of Diabetes Mellitus. Hematocrit Auto (Bld) [Volum e fraction]Ordered By: Jean Paul Gutiérrez on 07-24-2023 Hematocrit (Bld) [Volume fraction] 40.5 % 38.8-50.0 [facility] Hemoglobin [Mass/volume] in BloodOrdered By: Jean Paul Gutiérrez on 07-24-2023 Hemoglobin (Bld) [Mass/Vol] 13.7 g/dL 13.0-17.0 [facility] Hepatic Panelon 07-24-2023 Albumin [Mass/Vol] 4.3 g/dL Normal 3.5-5.7 [facility] Comment on above: Performed By: #### C MP, CBC #### [facility] [address] Albumin/Globulin [Mass ratio] 1.2 {ratio} Normal [facility] Comment on above: Performed By: #### C MP, CBC #### [facility] [address] [place] [address] [place] ALP [Catalytic activity/Vol] 72 U/L Normal 34-104 [facility] Comment on above: Performed By: #### C MP, CBC #### [facility] [address] [place] [id number] [place] ALT [Catalytic activity/Vol] 12 U/L Normal 7-52 [facility] Comment on above: Performed By: #### C MP, CBC #### [facility] [address] [place] [id number] [place] AST [Catalytic activity/Vol] 24 U/L Normal 13-39 [facility] Comment on above: Performed By: #### C MP, CBC #### [facility] [address] Bilirubin [Mass/Vol] 0.8 mg/dL Normal 0.3-1.0 [facility] Comment on above: Performed By: #### C MP, CBC #### [facility] [address] Bilirubin,Indirect 0.6 mg/dL Normal [facility] Comment on above: Performed By: #### C MP, CBC #### [facility] [address] Bilirubin.indirect [Mass/Vol] 0.20 mg/dL High 0.03-0.18 [facility] Comment on above: Performed By: #### C MP, CBC #### [address] Globulin (S) [Mass/Vol] 3.5 g/dL Normal [facility] Comment on above: Performed By: #### C MP, CBC #### [facility] [address] [place] [address] Protein [Mass/Vol] 7.8 g/dL Normal 6.4-8.9 [facility] Comment on above: Performed By: #### C MP, CBC #### [facility] [address] [place] [address] INR in Platelet poor plasma by Coagulation assayOrdered By: Jean Paul Gutiérrez on 07-24-2023 INR Coag (PPP) [Relative time] 1.0 {INR} [facility] Comment on above: INR Therapeutic Rang e [...] on 07-24-2023 Ketones (U) [Mass/Vol] Trace Negative [facility] Laboratory - UrinalysisOrder ed By: Jean Paul Gutiérrez on 07-24-2023 Hyaline casts LM Ql (Urine sed) None seen [LPF] 0-8 [facility] Leukocytes [#/volume] correc johnnie for nucleated erythrocytes in Blood by Automated counOrdered By: Jean Paul Gutiérrez on 07-24-2023 WBC corrected for nucl RBC Auto (Bld) [#/Vol] 7.3 10*3/uL 4.1-10.5 [facility] Lipaseon 07-24-2023 Lipase [Catalytic activity/Vol] 90.0 U/L High 11.0-82.0 [facility] Comment on above: Result Comment: PERF ORMED BY: [place] [address] PATHOLOGIST DISPOSAL OPERATOR RAHEL TREVINO M.D. Performed By: #### C MP, CBC #### [address] Lipase [Enzymatic activity/v olume] in Serum or PlasmaOrdered By: Jean Paul Gutiérrez on 07-24-2023 Lipase [Catalytic activity/Vol] 90.0 U/L 11.0-82.0 [facility] Lymphocytes Auto (Bld) [#/Vo l]Ordered By: Jean Paul Gutiérrez on 07-24-2023 Lymphocytes (Bld) [#/Vol] 0.9 10*3/uL 1.00-4.8 [facility] Lymphocytes/100 WBC Auto (Bl d)Ordered By: Jean Paul Gutiérrez on 07-24-2023 Lymphocytes/100 WBC (Bld) 12.6 % . [facility] MCH Auto (RBC) [Entitic mass ]Ordered By: Jean Paul Gutiérrez on 07-24-2023 MCH (RBC) [Entitic mass] 29.8 pg 27.5-35.2 [facility] MCHC Auto (RBC) [Mass/Vol]Or dered By: Jean Paul Gutiérrez on 07-24-2023 MCHC (RBC) [Mass/Vol] 33.8 g/dL 32.5-35.6 [facility] MCV Auto (RBC) [Entitic vol] Ordered By: Jean Paul Gutiérrez on 07-24-2023 MCV (RBC) [Entitic vol] 88.1 fL 83.5-101 [facility] Magnesiumon 07-24-2023 Magnesium [Mass/Vol] 2.1 mg/dL Normal 1.9-2.7 [facility] Comment on above: Performed By: #### C MP, CBC #### [facility] [address] Magnesium [Mass/volume] in S sadi or PlasmaOrdered By: Gela Eller on 07-24-2023 Magnesium [Mass/Vol] 2.1 mg/dL 1.9-2.7 [facility] Monocyte distribution width [Entitic volume] in Blood by AutomatedOrdered By: Jean Paul Gutiérrez on 07-24-2023 Monocyte distribution width Auto (Bld) [Entitic vol] 21.73 % 0.00-20.00 [facility] Comment on above: For adults in ED, MD W > 20.0 may be associated with a higher risk of sepsis during the first 12 hrs of hospital admission Monocytes Auto (Bld) [#/Vol] Ordered By: Jean Paul Gutiérrez on 07-24-2023 Monocytes (Bld) [#/Vol] 0.8 10*3/uL 0.0-0.8 [facility] Monocytes/100 WBC Auto (Bld) Ordered By: Jean Paul Gutiérrez on 07-24-2023 Monocytes/100 WBC (Bld) 10.3 % . [facility] Neutrophils Auto (Bld) [#/Vo l]Ordered By: Jean Paul Gutiérrez on 07-24-2023 Neutrophils (Bld) [#/Vol] 5.5 10*3/uL 1.8-7.7 [facility] Neutrophils/100 WBC Auto (Bl d)Ordered By: Jean Paul Gutiérrez on 07-24-2023 Neutrophils/100 WBC (Bld) 75.6 % . [facility] Nitrite Test strip Ql (U)Ord ered By: Jean Paul Gutiérrez on 07-24-2023 Nitrite Ql (U) Negative Negative [facility] No Panel InformationOrdered By: Jean Paul Gutiérrez on 07-24-2023 Estimated GFR (CKD-EPI) 13.168 mL/Min [facility] Creatinine Clearance (Chem 15.40 [facility] Nucleated erythrocytes [Pres ence] in Blood by Automated countOrdered By: Jean Paul Gutiérrez on 07-24-2023 Nucleated RBC Auto Ql (Bld) 0.2 /100{WBC} 0-0.5 [facility] Platelet mean volume Auto (B ld) [Entitic vol]Ordered By: Jean Paul Gutiérrez on 07-24-2023 Platelet mean volume (Bld) [Entitic vol] 10.8 fL 6.6-10.1 [facility] Platelets Auto (Bld) [#/Vol] Ordered By: Jean Paul Gutiérrez on 07-24-2023 Platelets (Bld) [#/Vol] 256 10*3/uL 150-450 [facility] Potassium [Moles/volume] in Serum or PlasmaOrdered By: Jean Paul Gutiérrez on 07-24-2023 Potassium [Moles/Vol] 2.9 mmol/L 3.5-5.1 [facility] Comment on above: Critical Result Call ed to and read back by: ANDREAS CARABALLO at: 07/24/2023 13:30:58 by:MLG Protein Auto test strip (U) [Mass/Vol]Ordered By: Jean Paul Gutiérrez on 07-24-2023 Protein (U) [Mass/Vol] 30 mg/dL Negative [facility] Protein [Mass/volume] in Ser um or PlasmaOrdered By: Jean Paul Gutiérrez on 07-24-2023 Protein [Mass/Vol] 7.8 g/dL 6.4-8.9 [facility] Prothrombin Time INRon 07-24 INR Coag (PPP) [Relative time] 1.0 {INR} Normal [facility] Comment on above: Result Comment: INR Therapeutic [...] heart valves: 3 - 4.5 PERFORMED BY: [place] [address] [place] [address] PATHOLOGIST DISPOSAL OPERATOR JIANLAN SUN M.D. Performed By: #### C MP, CBC #### [facility] [address] [place] [address] [place] PT Coag (PPP) [Time] 12.2 s Normal 9.0-12.9 [facility] Comment on above: Result Comment: A he matocrit value greater than 55% may lead to inaccurate results in coagulation testing. Patients having hematocrit values >55% require a special collection tube for coagulation studies. Please contact the laboratory at [phone] for redraw instructions. Performed By: #### C MP, CBC #### [facility] [address] [place] [address] [facility] Prothrombin time (PT)Ordered By: Jean Paul Gutiérrez on 07-24-2023 PT Coag (PPP) [Time] 12.2 s 9.0-12.9 [facility] Comment on above: A hematocrit value g reater than 55% may lead to inaccurate results in coagulation testing. Patients having hematocrit values >55% require a special collection tube for coagulation studies. Please contact the laboratory at [phone] for redraw instructions. RBC Auto (Bld) [#/Vol]Ordere d By: Jean Paul Gutiérrez on 07-24-2023 RBC (Bld) [#/Vol] 4.60 10*6/uL 3.90-5.60 [facility] Serum or plasma albumin/glob ulin mass ratioOrdered By: Jean Paul Gutiérrez on 07-24-2023 Albumin/Globulin [Mass ratio] 1.2 {ratio} [facility] Serum or plasma anion gap de terminationOrdered By: Jean Paul Gutiérrez on 07-24-2023 Anion gap [Moles/Vol] 18.0 mmol/L 6.0-15.0 [facility] Serum or plasma non-glucuron idated bilirubin measurement (mass/volume)Ordered By: Jean Paul Gutiérrez on 07-24-2023 Bilirubin.indirect [Mass/Vol] 0.6 mg/dL [facility] Sodium [Moles/volume] in Ser um or PlasmaOrdered By: Jean Paul Gutiérrez on 07-24-2023 Sodium [Moles/Vol] 134 mmol/L 136-145 [facility] Sodium [Moles/volume] in Uri neOrdered By: Gela Eller on 07-24-2023 Sodium (U) [Moles/Vol] 41 mmol/L [facility] Comment on above: No reference range e stablished Specific gravity Auto test s trip (U) [Rel density]Ordered By: Jean Paul Gutiérrez on 07-24-2023 Specific gravity (U) [Rel density] 1.015 1.001-1.03 0 [facility] Squamous epithelial cells de tection in urine sediment by light microscopyOrdered By: Jean Paul Gutiérrez on 07-24-2023 Epithelial cells.squamous LM Ql (Urine sed) None seen [HPF] 0-2 [facility] Troponin I High Sensitivityo n 07-24-2023 Troponin I High Sensitivity 11.8 pg/mL Normal 0.0-20.0 [facility] Comment on above: Result Comment: PERF ORMED BY: [place] [address] PATHOLOGIST DISPOSAL OPERATOR RAHEL TREVINO M.D. Performed By: #### C MP, CBC #### [address] Troponin I.cardiac [Mass/vol ume] in Serum or Plasma by Detection limit <= 0.01 ng/Ordered By: Jean Paul Gutiérrez on 07-24-2023 Troponin I.cardiac DL <= 0.01 ng/mL [Mass/Vol] 11.8 pg/mL 0.0-20.0 [facility] Urea nitrogen [Mass/volume] in Serum or PlasmaOrdered By: Jean Paul Gutiérrez on 07-24-2023 Urea nitrogen [Mass/Vol] 56 mg/dL 7- [facility] Urine bacteria detection by automated methodOrdered By: Jean Paul Gutiérrez on 07-24-2023 Bacteria Auto Ql (U) None seen None Seen [facility] Urine clarity by refractomet ry automatedOrdered By: Jean Paul Gutiérrez on 07-24-2023 Clarity Refractometry automated (U) Clear Clear [facility] Urine glucose measurement by automated test strip (mass/volume)Ordered By: Jean Paul Gutiérrez on 07-24-2023 Glucose Auto test strip (U) [Mass/Vol] Normal mg/dL Normal [facility] Urine hemoglobin detection b y automated test stripOrdered By: Jean Paul Gutiérrez on 07-24-2023 Hemoglobin Auto test strip Ql (U) Negative Negative [facility] Urine leukocyte esterase det ection by automated test stripOrdered By: Jean Paul Gutiérrez on 07-24-2023 Leukocyte esterase Auto test strip Ql (U) Negative Negative [facility] Urobilinogen Auto test strip (U) [Mass/Vol]Ordered By: Jean Paul Gutiérrez on 07-24-2023 Urobilinogen (U) [Mass/Vol] Normal mg/dL Normal [facility] WBC Auto (Bld) [#/Vol]Ordere d By: Jean Paul Gutiérrez on 07-24-2023 WBC (Bld) [#/Vol] 7.3 10*3/uL 4.1-10.5 [facility] pH Auto test strip (U)Ordere d By: Jean Paul Gutiérrez on 07-24-2023 pH (U) 5.5 [pH] 5.0-9.0 [facility] Tobacco Screening.on 023 Tobacco use status CPHS b) No -[facility] y 250 DO Work Phone: Activated partial thrombopla stin time (aPTT) in platelet poor plasma by coagulation aOrdered By: Joselito Madsen on 01-15-2023 aPTT Coag (PPP) [Time] 29.1 s 25.1-36.5 [facility] Basophils Auto (Bld) [#/Vol] Ordered By: Joselito Madsen on 01-15-2023 Basophils (Bld) [#/Vol] 0.0 10*3/uL 0.0-0.2 [facility] Basophils/100 WBC Auto (Bld) Ordered By: Joselito Madsen on 01-15-2023 Basophils/100 WBC (Bld) 0.7 % . [facility] Blood Urea Nitrogenon 2022 Urea nitrogen [Mass/Vol] 19 mg/dL Normal 03-18 [facility] Comment on above: Performed By: #### C REAT, PP, LYTES, LIPID, CBC, BUN #### [facility] [address] Carbon dioxide, total [Moles /volume] in Serum or PlasmaOrdered By: Joselito Madsen on 01-15-2023 CO2 [Moles/Vol] 24.1 mmol/L 21.0-31.0 [facility] Chloride [Moles/volume] in S sadi or PlasmaOrdered By: Joselito Madsen on 01-15-2023 Chloride [Moles/Vol] 108 mmol/L 98-107 [facility] Cholesterol [Mass/volume] in Serum or PlasmaOrdered By: Joselito Madsen on 01-15-2023 Cholesterol [Mass/Vol] 123 mg/dL 140-200 [facility] Comment on above: Chol less than 200 m g/dl low riskChol 201-239 mg/dl borderline riskChol 240 mg/dl and greater high risk Cholesterol in LDL Calc [Mas s/Vol]Ordered By: Joselito Madsen on 01-15-2023 Cholesterol in LDL [Mass/Vol] 49 mg/dL 0-100 [facility] Comment on above: LDL ATP III CLASSIFI CATIONLDL less than 100 mg/dL OptimalLDL 100-129 mg/dL Near or above optimalLDL 130-159 mg/dL Borderline highLDL 160-189 mg/dL HighLDL greater than 189 mg/dL Very high Cholesterol in VLDL Calc [Ma ss/Vol]Ordered By: Joselito Madsen on 01-15-2023 Cholesterol in VLDL [Mass/Vol] 10 mg/dL [facility] Coagulation Profileon 2022 aPTT Coag (Bld) [Time] 29.1 s Normal 25.1-36.5 [facility] Comment on above: Result Comment: PERF ORMED BY: [place] [address] PATHOLOGIST DISPOSAL OPERATOR RAHEL TREVINO M.D. Performed By: #### C REAT, PP, LYTES, LIPID, CBC, BUN #### [address] INR Coag (PPP) [Relative time] 1.0 {INR} Normal [facility] Comment on above: Result Comment: INR Therapeutic [...] REAT, PP, LYTES, LIPID, CBC, BUN #### [address] PT Coag (PPP) [Time] 11.0 s Normal 9.0-12.9 [facility] Comment on above: Performed By: #### C REAT, PP, LYTES, LIPID, CBC, BUN #### [address] Complete Blood Count Auto Di ffon 01-15-2023 Basophils (Bld) [#/Vol] 0.0 10*3/uL Normal 0.0-0.2 [facility] Comment on above: Result Comment: PERF ORMED BY: [place] [address] PATHOLOGIST DISPOSAL OPERATOR RAHEL TREVINO M.D. Performed By: #### C REAT, PP, LYTES, LIPID, CBC, BUN #### [address] Basophils/100 WBC (Bld) 0.7 % Normal . [facility] Comment on above: Performed By: #### C REAT, PP, LYTES, LIPID, CBC, BUN #### [address] Eosinophils (Bld) [#/Vol] 0.5 10*3/uL High 0.0-0.45 [facility] Comment on above: Performed By: #### C REAT, PP, LYTES, LIPID, CBC, BUN #### [address] Eosinophils/100 WBC (Bld) 9.6 % Normal . [facility] Comment on above: Performed By: #### C REAT, PP, LYTES, LIPID, CBC, BUN #### [address] Erythrocyte distribution width (RBC) [Ratio] 13.3 % Normal 12.0-14.8 [facility] Comment on above: Performed By: #### C REAT, PP, LYTES, LIPID, CBC, BUN #### [address] Hematocrit (Bld) [Volume fraction] 38.8 % Normal 38.8-50.0 [facility] Comment on above: Performed By: #### C REAT, PP, LYTES, LIPID, CBC, BUN #### [address] Hemoglobin (Bld) [Mass/Vol] 12.7 g/dL Low 13.0-17.0 [facility] Comment on above: Performed By: #### C REAT, PP, LYTES, LIPID, CBC, BUN #### [address] Lymphocytes (Bld) [#/Vol] 1.0 10*3/uL Normal 1.00-4.8 [facility] Comment on above: Performed By: #### C REAT, PP, LYTES, LIPID, CBC, BUN #### [address] Lymphocytes/100 WBC (Bld) 19.2 % Normal . [facility] Comment on above: Performed By: #### C REAT, PP, LYTES, LIPID, CBC, BUN #### [address] MCH (RBC) [Entitic mass] 29.2 pg Normal 27.5-35.2 [facility] Comment on above: Performed By: #### C REAT, PP, LYTES, LIPID, CBC, BUN #### [address] MCV (RBC) [Entitic vol] 89.1 fL Normal 83.5-101 [facility] Comment on above: Performed By: #### C REAT, PP, LYTES, LIPID, CBC, BUN #### [place] [id number] [place] Mean Corpuscular HGB Conc 32.7 g/dL Normal 32.5-35.6 [facility] Comment on above: Performed By: #### C REAT, PP, LYTES, LIPID, CBC, BUN #### [address] Monocytes (Bld) [#/Vol] 0.9 10*3/uL High 0.0-0.8 [facility] Comment on above: Performed By: #### C REAT, PP, LYTES, LIPID, CBC, BUN #### [address] Monocytes/100 WBC (Bld) 17.1 % Normal . [facility] Comment on above: Performed By: #### C REAT, PP, LYTES, LIPID, CBC, BUN #### [address] Neutrophils (Bld) [#/Vol] 2.7 10*3/uL Normal 1.8-7.7 [facility] Comment on above: Performed By: #### C REAT, PP, LYTES, LIPID, CBC, BUN #### [address] Neutrophils/100 WBC (Bld) 53.4 % Normal . [facility] Comment on above: Performed By: #### C REAT, PP, LYTES, LIPID, CBC, BUN #### [address] NRBC% 0.1 /100{WBC} Normal 0-0.5 [facility] Comment on above: Performed By: #### C REAT, PP, LYTES, LIPID, CBC, BUN #### [address] Platelet mean volume (Bld) [Entitic vol] 9.0 fL Normal 6.6-10.1 [facility] Comment on above: Performed By: #### C REAT, PP, LYTES, LIPID, CBC, BUN #### [place] [id number] [place] Platelets (Bld) [#/Vol] 170 10*3/uL Normal 150-450 [facility] Comment on above: Performed By: #### C REAT, PP, LYTES, LIPID, CBC, BUN #### [facility] [address] RBC (Bld) [#/Vol] 4.36 10*6/uL Normal 3.90-5.60 [facility] Comment on above: Performed By: #### C REAT, PP, LYTES, LIPID, CBC, BUN #### [facility] [address] WBC (Bld) [#/Vol] 5.0 10*3/uL Normal 4.1-10.5 [facility] Comment on above: Performed By: #### C REAT, PP, LYTES, LIPID, CBC, BUN #### [address] Creatinineon 01-15-2023 Creatinine [Mass/Vol] 1.22 mg/dL Normal 0.70-1.30 [facility] Comment on above: Performed By: #### C REAT, PP, LYTES, LIPID, CBC, BUN #### [address] GFR/1.73 sq M.predicted MDRD (S/P/Bld) [Vol rate/Area] mL/min/{1.73_m2} [facility] Comment on above: Performed By: #### C REAT, PP, LYTES, LIPID, CBC, BUN #### [address] Creatinine [Mass/volume] in Serum or PlasmaOrdered By: Joselito Madsen on 01-15-2023 Creatinine [Mass/Vol] 1.22 mg/dL 0.70-1.30 [facility] ECG 12 lead ECGon 01-15-2023 ECG 12 lead ECG [facility] Main [place] [address] [place] [address] Electrocardiograph Report Signed Patient: Aisha Julien MR#: [id number] : 1955 Acct:[id number] Age/Sex: 67 / M ADM Date: 01/15/23 Loc: PS Room: Type: [facility] Attending Dr: Joselito Madsen DO Ordering Provider: Joselito Madsen DO Date of Service: 01/15/23 ECG/ECG 12 lead ECG: [facility] Copies to: Test Reason : Blood Pressure [...] By: MUS Signed By Paty Mackey MD 1943 Normal [facility] Electrolyteson 01-15-2023 Anion gap [Moles/Vol] 10.5 mmol/L Normal 6.0-15.0 [facility] Comment on above: Performed By: #### C REAT, PP, LYTES, LIPID, CBC, BUN #### [facility] [address] [place] [address] [place] Chloride [Moles/Vol] 108 mmol/L High 98-107 [facility] Comment on above: Performed By: #### C REAT, PP, LYTES, LIPID, CBC, BUN #### [facility] [address] [place] [address] [place] CO2 [Moles/Vol] 24.1 mmol/L Normal 21.0-31.0 [facility] Comment on above: Performed By: #### C REAT, PP, LYTES, LIPID, CBC, BUN #### [facility] [address] [place] [id number] [place] Potassium [Moles/Vol] 4.6 mmol/L Normal 3.5-5.1 [facility] Comment on above: Performed By: #### C REAT, PP, LYTES, LIPID, CBC, BUN #### [facility] [address] Sodium [Moles/Vol] 138 mmol/L Normal 136-145 [facility] Comment on above: Performed By: #### C REAT, PP, LYTES, LIPID, CBC, BUN #### [facility] [address] Eosinophils Auto (Bld) [#/Vo l]Ordered By: Joselito Madsen on 01-15-2023 Eosinophils (Bld) [#/Vol] 0.5 10*3/uL 0.0-0.45 [facility] Eosinophils/100 WBC Auto (Bl d)Ordered By: Joselito Madsen on 01-15-2023 Eosinophils/100 WBC (Bld) 9.6 % . [facility] Erythrocyte distribution wid th Auto (RBC) [Ratio]Ordered By: Joselito Madsen on 01-15-2023 Erythrocyte distribution width (RBC) [Ratio] 13.3 % 12.0-14.8 [facility] Hematocrit Auto (Bld) [Volum e fraction]Ordered By: Joselito Madsen on 01-15-2023 Hematocrit (Bld) [Volume fraction] 38.8 % 38.8-50.0 [facility] Hemoglobin [Mass/volume] in BloodOrdered By: Joselito Madsen on 01-15-2023 Hemoglobin (Bld) [Mass/Vol] 12.7 g/dL 13.0-17.0 [facility] Laboratory - Chemistry and C hemistry - challengeon 01-15-2023 Cholesterol [Mass/Vol] 123\S\123 below low threshold 140-200 [facility] DO Work Phone: Comment on above: Chol less than 200 m g/dl low risk Chol 201-239 mg/dl borderline risk Chol 240 mg/dl and greater high risk Cholesterol in LDL [Mass/Vol] 49\S\49 Normal 0-100 [facility] DO Work Phone: Comment on above: LDL ATP III CLASSIFI CATION LDL less than 100 mg/dL Optimal LDL 100-129 mg/dL Near or above optimal LDL 130-159 mg/dL Borderline high LDL 160-189 mg/dL High LDL greater than 189 mg/dL Very high Laboratory - CoagulationOrde red By: Joselito Madsen on 01-15-2023 PT Coag (PPP) [Time] 11.0 s 9.0-12.9 [facility] Leukocytes [#/volume] correc johnnie for nucleated erythrocytes in Blood by Automated counOrdered By: Joselito Madsen on 01-15-2023 WBC corrected for nucl RBC Auto (Bld) [#/Vol] 5.0 10*3/uL 4.1-10.5 [facility] Lipid Panelon 01-15-2023 Cholesterol [Mass/Vol] 123 mg/dL Low 140-200 [facility] Comment on above: Result Comment: Chol less than 200 mg/dl low risk Chol 201-239 mg/dl borderline risk Chol 240 mg/dl and greater high risk Performed By: #### C MP, CBC #### [facility] [address] [place] [id number] [place] Cholesterol in HDL [Mass/Vol] 64 mg/dL Normal 29-71 [facility] Comment on above: Result Comment: HDL CHOL ATP-III CLASSIFICATION Cardiovascular Risk HDL > or equal to 60 mg/dL LOW HDL < 40 mg/dL HIGH Performed By: #### C MP, CBC #### [facility] [address] [place] [address] [place] Cholesterol.total/Cho lesterol in HDL [Mass ratio] 1.9 {ratio} Normal <5.0 [facility] Comment on above: Result Comment: PERF ORMED BY: [facility] [address] [place] [address] PATHOLOGIST DISPOSAL OPERATOR RAHEL TREVINO M.D. Performed By: #### C MP, CBC #### [facility] [address] [place] [id number] [place] LDL Cholesterol,Calculate d 49 mg/dL Normal 0-100 [facility] Comment on above: Result Comment: LDL ATP III CLASSIFICATION LDL less than 100 mg/dL Optimal LDL 100-129 mg/dL Near or above optimal LDL 130-159 mg/dL Borderline high LDL 160-189 mg/dL High LDL greater than 189 mg/dL Very high Performed By: #### C MP, CBC #### [facility] [address] Triglyceride w/Reflex 51 mg/dL Normal 0-149 [facility] Comment on above: Result Comment: TRIG ATP III CLASSIFICATION TRIG less than 150 mg/dL Normal TRIG 150-199 mg/dL Borderline high TRIG 200-500 mg/dL High TRIG greater than 500 mg/dL Very high Standard traceable to the Center for Disease Conrtrol and Prevention (CDC) test method. Performed By: #### C MP, CBC #### [facility] [address] VLDL CHOLESTEROL 10 mg/dL Normal [facility] Comment on above: Performed By: #### C MP, CBC #### [facility] [address] Lymphocytes Auto (Bld) [#/Vo l]Ordered By: Joselito Madsen on 01-15-2023 Lymphocytes (Bld) [#/Vol] 1.0 10*3/uL 1.00-4.8 [facility] Lymphocytes/100 WBC Auto (Bl d)Ordered By: Joselito Madsen on 01-15-2023 Lymphocytes/100 WBC (Bld) 19.2 % . [facility] MCH Auto (RBC) [Entitic mass ]Ordered By: Joselito Madsen on 01-15-2023 MCH (RBC) [Entitic mass] 29.2 pg 27.5-35.2 [facility] MCHC Auto (RBC) [Mass/Vol]Or dered By: Joselito Madsen on 01-15-2023 MCHC (RBC) [Mass/Vol] 32.7 g/dL 32.5-35.6 [facility] MCV Auto (RBC) [Entitic vol] Ordered By: Joselito Madsen on 01-15-2023 MCV (RBC) [Entitic vol] 89.1 fL 83.5-101 [facility] Monocytes Auto (Bld) [#/Vol] Ordered By: Joselito Madsen on 01-15-2023 Monocytes (Bld) [#/Vol] 0.9 10*3/uL 0.0-0.8 [facility] Monocytes/100 WBC Auto (Bld) Ordered By: Joselito Madsen on 01-15-2023 Monocytes/100 WBC (Bld) 17.1 % . [facility] Neutrophils Auto (Bld) [#/Vo l]Ordered By: Joselito Madsen on 01-15-2023 Neutrophils (Bld) [#/Vol] 2.7 10*3/uL 1.8-7.7 [facility] Neutrophils/100 WBC Auto (Bl d)Ordered By: Joselito Madsen on 01-15-2023 Neutrophils/100 WBC (Bld) 53.4 % . [facility] No Panel InformationOrdered By: Joselito Madsen on 01-15-2023 Estimated GFR (CKD-EPI) > 60.0 mL/Min [facility] Creatinine Clearance (Chem N/A [facility] No Panel Informationon 01-15 0.0\S\0.0 Normal 0.0-0.2 [facility] 250 DO Work Phone: Comment on above: PERFORMED BY:[facility] [place], [place] [phone] MEDICAL DIRECTORRAHEL TREVINO M.D. 0.5\S\0.5 above high threshold 0.0-0.45 [facility] y 250 DO Work Phone: 0.9\S\0.9 above high threshold 0.0-0.8 [facility] 250 DO Work Phone: 1.0\S\1.0 Normal [facility] y 250 DO Work Phone: Comment on [...] valves: 3 - 4.5 2.7\S\2.7 Normal 1.8-7.7 [facility] 250 DO Work Phone: [phone] 0.1\S\0.1 Normal 0-0.5 [facility] 250 DO Work Phone: [phone] 0.7\S\0.7 Normal . [facility] 250 DO Work Phone: [phone] 9.6\S\9.6 Normal . [facility] 250 DO Work Phone: [phone] 17.1\S\17.1 Normal . [facility] 250 DO Work Phone: [phone] 19.2\S\19.2 Normal . [facility] 250 DO Work Phone: [phone] 53.4\S\53.4 Normal . [facility] 250 DO Work Phone: [phone] 9.0\S\9.0 Normal 6.6-10.1 [facility] 250 DO Work Phone: [phone] 170\S\170 Normal 150-450 [facility] 250 DO Work Phone: [phone] 13.3\S\13.3 Normal 12.0-14.8 [facility] 250 DO Work Phone: [phone] 32.7\S\32.7 Normal 32.5-35.6 [facility] 250 DO Work Phone: [phone] 29.2\S\29.2 Normal 27.5-35.2 [facility] 250 DO Work Phone: [phone] 89.1\S\89.1 Normal 83.5-101 [facility] 250 DO Work Phone: [phone] 38.8\S\38.8 Normal 38.8-50.0 [facility] 250 DO Work Phone: [phone] 12.7\S\12.7 below low threshold 13.0-17.0 [facility] 250 DO Work Phone: 4.36\S\4.36 Normal 3.90-5.60 [facility] 250 DO Work Phone: 5.0\S\5.0 Normal 4.1-10.5 [facility] 250 DO Work Phone: [phone] 29.1\S\29.1 Normal 25.1-36.5 [facility] 250 DO Work Phone: [phone] Comment on above: PERFORMED BY:[place] [address] [address] [place], [place] [phone] MEDICAL DIRECTORRAHEL TREVINO M.D. 11.0\S\11.0 Normal 9.0-12.9 [facility] 250 DO Work Phone: [phone] 10.5\S\10.5 Normal 6.0-15.0 [facility] 250 DO Work Phone: 24.1\S\24.1 Normal 21.0-31.0 [facility] 250 DO Work Phone: [phone] 108\S\108 above high threshold 98-107 [facility] 250 DO Work Phone: 4.6\S\4.6 Normal 3.5-5.1 [facility] 250 DO Work Phone: 138\S\138 Normal 136-145 [facility] 250 DO Work Phone: [phone] 19\S\19 Normal 7-25 [facility] 250 DO Work Phone: [phone] > 60.0 Normal [facility] 250 DO Work Phone: 1.22\S\1.22 Normal 0.70-1.30 [facility] 250 DO Work Phone: 1.9\S\1.9 Normal <5.0 [facility] 250 DO Work Phone: Comment on above: PERFORMED BY:[facility] [place], [place] [phone] MEDICAL DIRECTORRAHEL TREVINO M.D. 10\S\10 Normal [facility] 250 DO Work Phone: 51\S\51 Normal 0-149 [facility] Work Phone: Comment on above: TRIG ATP III CLASSIF ICATION TRIG less than 150 mg/dL Normal TRIG 150-199 mg/dL Borderline high TRIG 200-500 mg/dL High TRIG greater than 500 mg/dL Very high Standard traceable to the Center for Disease Conrtrol and Prevention (CDC) test method. 64\S\64 Normal 29-[facility] Work Phone: Comment on above: HDL CHOL ATP-III CLA SSIFICATION Cardiovascular Risk HDL > or equal to 60 mg/dL LOW HDL < 40 mg/dL HIGH Nucleated erythrocytes [Pres ence] in Blood by Automated countOrdered By: Joselito Madsen on 01-15-2023 Nucleated RBC Auto Ql (Bld) 0.1 /100{WBC} 0-0.5 [facility] Platelet mean volume Auto (B ld) [Entitic vol]Ordered By: Joselito Madsen on 01-15-2023 Platelet mean volume (Bld) [Entitic vol] 9.0 fL 6.6-10.1 [facility] Platelet poor plasma interna tional normalized ratio (INR) by coagulation assay (relatOrdered By: Joselito Madsen on 01-15-2023 INR Coag (PPP) [Relative time] 1.0 {INR} [facility] Comment on above: INR Therapeutic Rang e [...] 01-15-2023 Platelets (Bld) [#/Vol] 170 10*3/uL 150-450 [facility] Potassium [Moles/volume] in Serum or PlasmaOrdered By: Joselito Madsen on 01-15-2023 Potassium [Moles/Vol] 4.6 mmol/L 3.5-5.1 [facility] RBC Auto (Bld) [#/Vol]Ordere d By: Joselito Madsen on 01-15-2023 RBC (Bld) [#/Vol] 4.36 10*6/uL 3.90-5.60 [facility] Serum or plasma anion gap de terminationOrdered By: Joselito Madsen on 01-15-2023 Anion gap [Moles/Vol] 10.5 mmol/L 6.0-15.0 [facility] Serum or plasma high density lipoprotein (HDL) cholesterol measurementOrdered By: Joselito Madsen on 01-15-2023 Cholesterol in HDL [Mass/Vol] 64 mg/dL 29-71 [facility] Comment on above: HDL CHOL ATP-III CLA SSIFICATION Cardiovascular RiskHDL > or equal to 60 mg/dL LOWHDL < 40 mg/dL HIGH Serum or plasma total choles terol/high density lipoprotein (HDL) cholesterol mass ratOrdered By: Joselito Madsen on 01-15-2023 Cholesterol.total/Cho lesterol in HDL [Mass ratio] 1.9 {ratio} <5.0 [facility] Sodium [Moles/volume] in Ser um or PlasmaOrdered By: Joselito Madsen on 01-15-2023 Sodium [Moles/Vol] 138 mmol/L 136-145 [facility] Triglyceride [Mass/volume] i n Serum or PlasmaOrdered By: Joselito Madsen on 01-15-2023 Triglyceride [Mass/Vol] 51 mg/dL 0-149 [facility] Comment on above: TRIG ATP III CLASSIF ICATIONTRIG less than 150 mg/dL NormalTRIG 150-199 mg/dL Borderline highTRIG 200-500 mg/dL High TRIG greater than 500 mg/dL Very highStandard traceable to the Center for Disease Conrtrol and Prevention (CDC) test method. Urea nitrogen [Mass/volume] in Serum or PlasmaOrdered By: Joselito Madsen on 01-15-2023 Urea nitrogen [Mass/Vol] 19 mg/dL 03-18 [facility] WBC Auto (Bld) [#/Vol]Ordere d By: Joselito Madsen on 01-15-2023 WBC (Bld) [#/Vol] 5.0 10*3/uL 4.1-10.5 [facility] Tobacco Screening.on 023 Adult depression screening assessment No [facility] 250 DO Work Phone: Fall risk assessment a) No falls within the last year [facility] 250 DO Work Phone: Tobacco use status CPHS b) No [facility] 250 DO Work Phone: EVENT MONITORon 12-13-2021 [place] [address] EVENT MONITOR PATIENT NAME: AISHA JULIEN : 1955 MED REC NO: [id number] ROOM: ACCOUNT NO: [id number] ADMIT DATE: 11/07/2021 PROVIDER: Inocencio Gutierrez NAME [...] for symptom control. INOCENCIO GUTIERREZ GV/V_TTHEN_I Doc#: [id number] CC: Rene Cannon [facility] CARDIAC STRESS TESTon 2021 [place] [address] CARDIAC STRESS TEST PATIENT NAME: AISHA JULIEN : 1955 MED REC NO: [id number] ROOM: ACCOUNT NO: [id number] ADMIT DATE: 11/07/2021 PROVIDER: Inocencio Gutierrez DATE [...] remained at 96%. INOCENCIO GUTIERREZ GV/[id number]_I Doc#: [id number] CC: Rene Cannon [facility] CARDIAC STRESS TESTon 2021 [place] [address] CARDIAC STRESS TEST PATIENT NAME: AISHA JULIEN : 1955 MED REC NO: [id number] ROOM: ACCOUNT NO: [id number] ADMIT DATE: 11/07/2021 PROVIDER: Karina Fajardo MD [...] MD LAURYN/CIARAN_DESTINEEIT Doc#: Unknown CC: Rene Gutierrez Normal [facility] NM MYOCARDIAL SPECT REST EXE RCISE OR RXon 11-07-2021 NM MYOCARDIAL SPECT REST EXERCISE OR RX Radiology exam is complete. No Radiologist dictation. Please follow up with ordering provider. Final result Normal [facility] No Panel Informationon 11-07 Radiology exam is complete. No Radiologist dictation. Please follow up with ordering provider. [facility] RIS CONSOLIDATED STRESS TEST REPORTon 022 Karina Fajardo MD - 11/07/2021 1:54 PM EDT [facility] [address] CARDIAC STRESS TEST PATIENT NAME: AISHA JULIEN : 1955 MED REC NO: [id number] ROOM: ACCOUNT NO: [id number] ADMIT DATE: 11/07/2021 PROVIDER: Karina Fajardo MD [...] Dr. Gutierrez on 11/07/2021. KARINA FAJARDO MD AA/CIARAN_RALF Doc#: Unknown CC: Rene Gutierrez [employer] Work Phone: [employer] Phone: VL DUP CAROTID BILATERALon 0 11-07-2021 VL DUP CAROTID BILATERAL Radiology exam is complete. No Radiologist dictation. Please follow up with ordering provider. Final result Normal [facility] [facility] Bryan Pichardo Jr., MD - 11/08/2021 [facility] Vascular Carotid Procedure Patient Name WILY LEONARD Date of Study 11/07/2021 L Date of 1955 Gender Male Age 66 year(s) Race Room Number Corporate ID [id number] # Patient Acct [id number] # MR # [id number] Agriculture [employer]ic Jocelyn Mcghee, Interpreting Estephania Pichardo Physician Referring Referring Physician RENE CANNON, Nurse VERNA* Practitioner ELA RIDDLE * Procedure Type of Study: Cerebral: Carotid, Carotid Scan Bilateral. Indications for Study:Bruit, carotid. Patient Status:Routine. Conclusions Summary Mild increase in prox CCA velocity, without spectral broadening, not considered significant. Minimal plaque right CCA. Negative left sided study. Antegrade flow in the vertebrals. Signature Findings: Right Impression: Left Impression: Heterogeneous plaquing [...] left side. - Additional Measurements:ICAPSV/CCAPSV 0.63.ICAEDV/CCAEDV 1.31. [facility] Phone: Radiology Study observation (narrative) [facility] Phone: VL DUP CAROTID BILATERALOrde red By: Bryan Pichardo on 11-07-2021 [employer] Phone: XR CHEST 2 Von 10-31-2021 XR [...] by: DEBORAH PERALTA Date: 2021-10-31 13:46 Normal [facility] Complete Blood Count with Au to Diffon 10-16-2021 Basophils (Bld) [#/Vol] 0.04 10*3/uL Normal 0.00-0.20 [facility] [employer] Comment on above: Performed By: #### C MP, TSH reflex FT4, CBCAD, MG, VITD, LIPD #### [facility] [address], [place] [id number] Basophils/100 WBC (Bld) 0.7 % Normal [facility] Comment on above: Performed By: #### C MP, TSH reflex FT4, CBCAD, MG, VITD, LIPD #### [facility] [address], [place] [id number] Eosinophils (Bld) [#/Vol] 0.12 10*3/uL Normal 0.02-0.50 [facility] Comment on above: Performed By: #### C MP, TSH reflex FT4, CBCAD, MG, VITD, LIPD #### [facility] [address], [place] [id number] Eosinophils/100 WBC (Bld) 2.2 % Normal [facility] Comment on above: Performed By: #### C MP, TSH reflex FT4, CBCAD, MG, VITD, LIPD #### [facility] [address], [place] [id number] Erythrocyte distribution width (RBC) [Ratio] 14.5 % Normal 11.0-15.0 [facility] Comment on above: Performed By: #### C MP, TSH reflex FT4, CBCAD, MG, VITD, LIPD #### [facility] [address], [place] [id number] Hematocrit (Bld) [Volume fraction] 38.2 % Low 38.5-50.0 [facility] Comment on above: Performed By: #### C MP, TSH reflex FT4, CBCAD, MG, VITD, LIPD #### [facility] [address], [place] [id number] Hemoglobin (Bld) [Mass/Vol] 12.3 g/dL Low 13.0-17.1 [facility] [employer] Comment on above: Performed By: #### C MP, TSH reflex FT4, CBCAD, MG, VITD, LIPD #### [facility] [address], [place] [id number] Lymphocytes (Bld) [#/Vol] 1.2 10*3/uL Normal 0.9-3.9 [facility] Comment on above: Performed By: #### C MP, TSH reflex FT4, CBCAD, MG, VITD, LIPD #### [facility] [address], [place] [id number] Lymphocytes/100 WBC (Bld) 22.1 % Normal [facility] Comment on above: Performed By: #### C MP, TSH reflex FT4, CBCAD, MG, VITD, LIPD #### [facility] [address] [facility] [place] [id number] MCH (RBC) [Entitic mass] 29.4 pg Normal 27.0-33.0 [facility] Comment on above: Performed By: #### C MP, TSH reflex FT4, CBCAD, MG, VITD, LIPD #### [facility] [address], [place] [id number] MCHC (RBC) [Mass/Vol] 32.2 g/dL Normal 32.0-36.0 [facility] Comment on above: Performed By: #### C MP, TSH reflex FT4, CBCAD, MG, VITD, LIPD #### [facility] [address] [facility] [place] [id number] MCV (RBC) [Entitic vol] 91 fL Normal 80-100 [facility] Comment on above: Performed By: #### C MP, TSH reflex FT4, CBCAD, MG, VITD, LIPD #### [facility] [address] [facility] [place] [id number] Monocytes (Bld) [#/Vol] 0.9 10*3/uL Normal 0.2-0.9 [facility] Comment on above: Performed By: #### C MP, TSH reflex FT4, CBCAD, MG, VITD, LIPD #### [facility] [address] [facility] [place] [id number] Monocytes/100 WBC (Bld) 16.4 % Normal [facility] Comment on above: Performed By: #### C MP, TSH reflex FT4, CBCAD, MG, VITD, LIPD #### [facility] [address] [facility] [place] [id number] Neutrophils (Bld) [#/Vol] 3.1 10*3/uL Normal 1.5-7.8 [facility] Comment on above: Performed By: #### C MP, TSH reflex FT4, CBCAD, MG, VITD, LIPD #### [facility] [address], [place] [id number] Neutrophils/100 WBC (Bld) 57.5 % Normal [facility] Comment on above: Performed By: #### C MP, TSH reflex FT4, CBCAD, MG, VITD, LIPD #### [facility] [address], [place] [id number] Platelet mean volume (Bld) [Entitic vol] 10.30 fL Normal 7.50-12.50 [facility] Comment on above: Performed By: #### C MP, TSH reflex FT4, CBCAD, MG, VITD, LIPD #### [facility] [address], [place] [id number] Platelets (Bld) [#/Vol] 266 10*3/uL Normal 140-400 [facility] Comment on above: Performed By: #### C MP, TSH reflex FT4, CBCAD, MG, VITD, LIPD #### [facility] [address], [place] [id number] RBC (Bld) [#/Vol] 4.19 10*6/uL Low 4.20-5.80 [facility] Comment on above: Performed By: #### C MP, TSH reflex FT4, CBCAD, MG, VITD, LIPD #### [facility] [address], [place] [id number] RDW-SD 48.1 fL Normal 37.0-50.0 [facility] Comment on above: Performed By: #### C MP, TSH reflex FT4, CBCAD, MG, VITD, LIPD #### [facility] [address], [place] [id number] WBC (Bld) [#/Vol] 5.4 10*3/uL Normal 3.8-11.0 [facility] Comment on above: Performed By: #### C MP, TSH reflex FT4, CBCAD, MG, VITD, LIPD #### [facility] [address], [place] [id number] Comprehensive Metabolic Pane jefry 10-16-2021 Albumin [Mass/Vol] 4.2 g/dL Normal 3.6-5.1 [facility] Comment on above: Performed By: #### C MP, TSH reflex FT4, CBCAD, MG, VITD, LIPD #### [facility] [address], [place] [id number] Albumin/Globulin [Mass ratio] 1.6 {ratio} Normal 1.0-2.5 [facility] Comment on above: Performed By: #### C MP, TSH reflex FT4, CBCAD, MG, VITD, LIPD #### [facility] [address], [place] [id number] ALP [Catalytic activity/Vol] 103 U/L Normal 40-129 [facility] Comment on above: Performed By: #### C MP, TSH reflex FT4, CBCAD, MG, VITD, LIPD #### [facility] [address], [place] [id number] ALT [Catalytic activity/Vol] 11 U/L Normal 9-46 [facility] Comment on above: Result Comment: 07/25 Female reference range changed. Performed By: #### C MP, TSH reflex FT4, CBCAD, MG, VITD, LIPD #### [facility] [address], [place] [id number] Anion gap [Moles/Vol] 19 mmol/L Normal 12-20 [facility] Comment on above: Result Comment: Effe ctive 08/30/2019 reference range changed. Performed By: #### C MP, TSH reflex FT4, CBCAD, MG, VITD, LIPD #### [facility] [address], [place] [id number] AST [Catalytic activity/Vol] 17 U/L Normal 10-40 [facility] Comment on above: Performed By: #### C MP, TSH reflex FT4, CBCAD, MG, VITD, LIPD #### [facility] [address], [place] [id number] Bilirubin [Mass/Vol] 0.37 mg/dL Normal 0.30-1.20 [facility] Comment on above: Performed By: #### C MP, TSH reflex FT4, CBCAD, MG, VITD, LIPD #### [facility] [address], [place] [id number] BUN/CREA 15 Ratio Normal 6-22 [facility] Comment on above: Performed By: #### C MP, TSH reflex FT4, CBCAD, MG, VITD, LIPD #### [facility] [address], [place] [id number] Calcium [Mass/Vol] 9.5 mg/dL Normal 8.6-10.2 [facility] Comment on above: Performed By: #### C MP, TSH reflex FT4, CBCAD, MG, VITD, LIPD #### [facility] [address], [place] [id number] Chloride [Moles/Vol] 104 mmol/L Normal 98-107 [facility] Comment on above: Performed By: #### C MP, TSH reflex FT4, CBCAD, MG, VITD, LIPD #### [facility] [address], [place] [id number] CO2 [Moles/Vol] 21 mmol/L Normal 20-31 [facility] Comment on above: Performed By: #### C MP, TSH reflex FT4, CBCAD, MG, VITD, LIPD #### [facility] [address], [place] [id number] Creatinine [Mass/Vol] 0.9 mg/dL Normal 0.7-1.4 [facility] Comment on above: Performed By: #### C MP, TSH reflex FT4, CBCAD, MG, VITD, LIPD #### [facility] [address], [place] [id number] eGFRAA 100 mL/min/1.73m2 Normal >60 [facility] Comment on above: Performed By: #### C MP, TSH reflex FT4, CBCAD, MG, VITD, LIPD #### [facility] [address], [place] [id number] eGFRNAA 82 mL/min/1.73m2 Normal >60 [place] [employer] Comment on above: Performed By: #### C MP, TSH reflex FT4, CBCAD, MG, VITD, LIPD #### [facility] [address], [place] [id number] Globulin (S) [Mass/Vol] 2.6 g/dL Normal 1.9-3.7 [facility] [employer] Comment on above: Performed By: #### C MP, TSH reflex FT4, CBCAD, MG, VITD, LIPD #### [facility] [address], [place] [id number] Glucose [Mass/Vol] 92 mg/dL Normal 65-99 Gaurav rn [place] [employer] Comment on above: Result Comment: For FASTING Glucose --- ADA reference ranges: Normal 65-99 mg/dl Prediabetes 100-125 Diabetes >/= 126 Performed By: #### C MP, TSH reflex FT4, CBCAD, MG, VITD, LIPD #### [facility] [address], [place] [id number] Potassium [Moles/Vol] 4.8 mmol/L Normal 3.5-5.5 [facility] Comment on above: Performed By: #### C MP, TSH reflex FT4, CBCAD, MG, VITD, LIPD #### [facility] [address], [place] [id number] Protein [Mass/Vol] 6.8 g/dL Normal 6.1-8.1 Gaurav [place] [employer] Comment on above: Performed By: #### C MP, TSH reflex FT4, CBCAD, MG, VITD, LIPD #### [facility] [address], [place] [id number] Sodium [Moles/Vol] 139 mmol/L Normal 135-146 Gaurav rn [place] [employer] Comment on above: Performed By: #### C MP, TSH reflex FT4, CBCAD, MG, VITD, LIPD #### [facility] [address], [place] [id number] Urea nitrogen [Mass/Vol] 14 mg/dL Normal 7-25 [facility] [employer] Comment on above: Performed By: #### C MP, TSH reflex FT4, CBCAD, MG, VITD, LIPD #### [facility] [address], [place] [id number] Lipid Panelon 10-16-2021 Cholesterol [Mass/Vol] 158 mg/dL Normal 125-200 [facility] Comment on above: Result Comment: Low risk < 200mg/dL Borderline risk 201-239 mg/dl High risk > or equal to 240 Performed By: #### C MP, TSH reflex FT4, CBCAD, MG, VITD, LIPD #### [facility] [address], [place] [id number] Cholesterol in HDL [Mass/Vol] 65 mg/dL Normal >40 [facility] Comment on above: Result Comment: High Cardiovascular Risk HDL <40 mg/dL Low Cardiovascular Risk HDL > or equal to 60 mg/dl Performed By: #### C MP, TSH reflex FT4, CBCAD, MG, VITD, LIPD #### [facility] [address], [place] [id number] Cholesterol in LDL [Mass/Vol] 81 mg/dL Normal [facility] Comment on above: Result Comment: LDL ATP III CLASSIFICATION LDL less than 100 mg/dl Optimal LDL 100-129 mg/dl Near or above optimal LDL 130-159 Borderline high LDL 160-189 High LDL greater than 189 mg/dl Very High Performed By: #### C MP, TSH reflex FT4, CBCAD, MG, VITD, LIPD #### [facility] [address], [place] [id number] Cholesterol in VLDL [Mass/Vol] 12 mg/dL Normal [facility]er Comment on above: Performed By: #### C MP, TSH reflex FT4, CBCAD, MG, VITD, LIPD #### [facility] [address], [place] [id number] Cholesterol.total/Cho lesterol in HDL [Mass ratio] 2 {ratio} Normal [facility] Comment on above: Performed By: #### C MP, TSH reflex FT4, CBCAD, MG, VITD, LIPD #### [facility] [address], [place] [id number] Triglyceride [Mass/Vol] 60 mg/dL Normal 30-150 [facility] [employer]er Comment on above: Result Comment: TRIG ATPIII CLASSIFICATIONS TRIG less than 150 mg/dl Normal TRIG 150-199 mg/dl Borderline High TRIG 200-500 mg/dl High TRIG greather than 500 mg/dl Very High Performed By: #### C MP, TSH reflex FT4, CBCAD, MG, VITD, LIPD #### [facility] [address], [place] [id number] Magnesiumon 10-16-2021 Magnesium [Mass/Vol] 1.9 mg/dL Normal 1.5-2.3 [facility] Comment on above: Performed By: #### C MP, TSH reflex FT4, CBCAD, MG, VITD, LIPD #### [facility] [address], [place] [id number] TSH w/ Reflex to Free T4on 0 10-16-2021 TSH 1.370 uIU/mL Normal 0.400-4.50 0 [facility] Comment on above: Performed By: #### C MP, TSH reflex FT4, CBCAD, MG, VITD, LIPD #### [facility] [address], [place] [id number] Vitamin D 25-OHon 10-16-2021 VIT D 25 OH 28 ng/ml Low >29 [facility] Comment on above: Result Comment: Karissa min D Status Deficiency <20 ng/mL Insufficiency 20-29 ng/mL Optimal 30-100 ng/mL Possible Toxicity >=150 ng/mL Performed By: #### C MP, TSH reflex FT4, CBCAD, MG, VITD, LIPD #### [facility] [address], [place] [id number] XR CHEST 2 Von 09-11-2021 XR CHEST [...] by: DEBORAH PERALTA Date: 2021-09-11 11:13 Normal [facility] PROF CHEM 8 (BAS METB)on Anion gap [Moles/Vol] 19.0 mmol/L Normal [facility] Comment on above: Performed By: #### B MP #### [facility] [address] [address] [address] Vadim Koehler Calcium [Mass/Vol] 9.0 mg/dL Normal 8.4-10.2 [facility] Comment on above: Performed By: #### B MP #### [facility] [address] [address] [address] Vadim Koehler Chloride [Moles/Vol] 97 mmol/L Critically low 98-107 [facility] Comment on above: Performed By: #### B MP #### [facility] [address] [address] [address] Vadim Koehler CO2 [Moles/Vol] 20.0 mmol/L Critically low 22.0-30.0 [facility] Comment on above: Performed By: #### B MP #### [facility] [address] [address] [address] Vadim Koehler Creatinine [Mass/Vol] 3.03 mg/dL Critically high 0.66-1.25 [facility] Comment on above: Performed By: #### B MP #### [facility] [address] [address] [address] Vadim Koehler EGFR-AF TURKISH 25 mL/min/1.73m2 Critically low >=60 [facility] Comment on above: Performed By: #### B MP #### [facility] [address] [address] [address] Vadim Koehler EGFR-NON AF TURKISH 21 mL/min/1.73m2 Critically low >=60 [facility] Comment on above: Performed By: #### B MP #### [facility] [address] [address] [address] Vadim Koehler Glucose [Mass/Vol] 120 mg/dL Critically high 74-106 [facility] Comment on above: Performed By: #### B MP #### [facility] [address] [place], [place] [address] Dr. Vadim Koehler Potassium [Moles/Vol] 4.0 mmol/L Normal 3.4-5.0 [facility] Comment on above: Performed By: #### B MP #### [facility] [address] [place], [place] [address] Dr. Vadim Koehler Sodium [Moles/Vol] 132 mmol/L Critically low 137-145 [facility] Comment on above: Performed By: #### B MP #### [facility] [address] [address] [address] Vadim Koehler Urea nitrogen [Mass/Vol] 47.0 mg/dL Critically high 9.0-20.0 [facility] Comment on above: Performed By: #### B MP #### [facility] [address] [address] [address] Vadim Koehler Urea nitrogen/Creatinine [Mass ratio] 15.5 mg/mg Normal [facility] Comment on above: Performed By: #### B MP #### [facility] [address] [place], [place] [address] Dr. Vadim Koehler Vital Signs Date Time Vital Sign Value Performing Clinician Facility 08-07-2023 13:50-0500 Body weight 63.5 kg Cleveland Alberts MD Work Phone: [facility] 08-07-2023 13:50-0500 Diastolic blood pressure 63 mm[Hg] Cleveland Alberts MD Work Phone: [facility] 08-07-2023 13:50-0500 Heart rate 139 /min Cleveland Alberts MD Work Phone: [facility] 08-07-2023 13:50-0500 Systolic blood pressure 94 mm[Hg] Cleveland Alberts MD Work Phone: [facility] 07-26-2023 15:20-0500 Body temperature 97.7 [degF] MD Rene Cannon Work Phone: [facility] 07-26-2023 15:20-0500 Diastolic blood pressure 69 mm[Hg] MD Rene Cannon Work Phone: [facility] 07-26-2023 15:20-0500 Heart rate 58 /min MD Rene Cannon Work Phone: [facility] 07-26-2023 15:20-0500 Respiratory rate 18 /min MD Rene Cannon Work Phone: [facility] 07-26-2023 15:20-0500 SaO2% (BldA) [Mass fraction] 97 % MD Rene Cannon Work Phone: [facility] 07-26-2023 15:20-0500 Systolic blood pressure 128 mm[Hg] MD Rene Cannon Work Phone: [facility] 07-26-2023 03:59-0500 Body weight 74.9 kg MD Rene Cannon Work Phone: [facility] 07-25-2023 14:39-0500 Body height 175.26 cm MD Rene Cannon Work Phone: [facility] 07-24-2023 18:07-0500 Diastolic blood pressure 56 mm[Hg] MD Rene Cannon Work Phone: [facility] 07-24-2023 18:07-0500 Heart rate 58 /min MD Rene Cannon Work Phone: [facility] 07-24-2023 18:07-0500 Respiratory rate 18 /min MD Rene Cannon Work Phone: [facility] 07-24-2023 18:07-0500 SaO2% (BldA) [Mass fraction] 100 % MD Rene Cannon Work Phone: [facility] 07-24-2023 18:07-0500 Systolic blood pressure 100 mm[Hg] MD Rene Cannon Work Phone: [facility] 07-24-2023 12:15-0500 Body height 175.26 cm MD Rene Cannon Work Phone: [facility] 07-24-2023 12:15-0500 Body temperature 97.6 [degF] MD Rene Cannon Work Phone: [facility] 07-24-2023 12:15-0500 Body weight 72.5 kg MD Rene Cannon Work Phone: [facility] 02-22-2023 11:30-0400 Body height 176.53 cm Chantal Castellanos Other [facility] [employer] Other 02-22-2023 11:30-0400 Body mass index (BMI) [Ratio] 25.79 kg/m2 Chantal Castellanos Other [employer] Other 02-22-2023 11:30-0400 Body temperature 98.9 [degF] Chantal Castellanos Other [employer] Other 02-22-2023 11:30-0400 Body weight 80.38 kg Chantal Castellanos Other [employer] Other 02-22-2023 11:30-0400 Respiratory rate 18 /min Chantal Castellanos Other [employer] Other 02-22-2023 11:30-0400 SaO2% (BldA) [Mass fraction] 96 % Chantal Castellanos Other [employer] Other 02-06-2023 11:36-0400 Body height 176.53 cm Rene Cannon Work Phone: [facility] DO Work Phone: 02-06-2023 11:36-0400 Body mass index (BMI) [Ratio] 25.62 kg/m2 Rene Cannon Work Phone: [facility] 250 DO Work Phone: 02-06-2023 11:36-0400 Body surface area Derived from formula 1.97 m2 Rene Cannon Work Phone: [facility] 250 DO Work Phone: 02-06-2023 11:36-0400 Body weight 79.83 kg Rene Cannon Work Phone: [facility] DO Work Phone: 02-06-2023 11:36-0400 Diastolic blood pressure 78 mm[Hg] Rene Cannon Work Phone: [facility] DO Work Phone: 02-06-2023 11:36-0400 Heart rate 66 /min Rene Cannon Work Phone: [facility] DO Work Phone: 02-06-2023 11:36-0400 Systolic blood pressure 136 mm[Hg] Rene Cannon Work Phone: [facility] DO Work Phone: 01-17-2023 13:05-0400 Diastolic blood pressure 72 mm[Hg] MD Rene Cannon Work Phone: [facility] 01-17-2023 13:05-0400 Heart rate 60 /min MD Rene Cannon Work Phone: [facility] 01-17-2023 13:05-0400 Respiratory rate 16 /min MD Rene Cannon Work Phone: [facility] 01-17-2023 13:05-0400 SaO2% (BldA) [Mass fraction] 97 % MD Rene Cannon Work Phone: [facility] 01-17-2023 13:05-0400 Systolic blood pressure 123 mm[Hg] MD Rene Cannon Work Phone: [facility] 01-17-2023 07:26-0400 Body height 177.8 cm MD Rene Cannon Work Phone: [facility] 01-17-2023 07:26-0400 Body temperature 98.1 [degF] MD Rene Cannon Work Phone: [facility] 01-17-2023 07:26-0400 Body weight 82 kg MD Rene Cannon Work Phone: [facility] 01-09-2023 09:10-0400 Diastolic blood pressure 92 mm[Hg] Rene Cannon Work Phone: [facility] 250 DO Work Phone: 01-09-2023 09:10-0400 Systolic blood pressure 160 mm[Hg] Rene Cannon Work Phone: [facility] DO Work Phone: 01-09-2023 09:09-0400 Body height 176.53 cm Rene Cannon Work Phone: [facility] DO Work Phone: 01-09-2023 09:09-0400 Body mass index (BMI) [Ratio] 26.49 kg/m2 Rene Cannon Work Phone: [facility] DO Work Phone: 01-09-2023 09:09-0400 Body surface area Derived from formula 1.99 m2 Rene Cannon Work Phone: [facility] DO Work Phone: 01-09-2023 09:09-0400 Body weight 82.56 kg Rene Cannon Work Phone: [facility] DO Work Phone: 01-09-2023 09:09-0400 Diastolic blood pressure 90 mm[Hg] Rene Cannon Work Phone: [facility] DO Work Phone: 01-09-2023 09:09-0400 Heart rate 70 /min Rene Cannon Work Phone: [facility] DO Work Phone: 01-09-2023 09:09-0400 Systolic blood pressure 152 mm[Hg] Rene Cannon Work Phone: [facility] DO Work Phone: 11-21-2021 14:30-0400 Body height 176.53 cm Deborah Magallanes Other [employer] Other 11-21-2021 14:30-0400 Body mass index (BMI) [Ratio] 27.36 kg/m2 Deborah Magallanes Other [employer] Other 11-21-2021 14:30-0400 Body weight 85.28 kg Deborah Elpidio Other [employer] Other 11-21-2021 14:30-0400 Diastolic blood pressure 79 mm[Hg] Deborah Magallanes Other [employer] Other 11-21-2021 14:30-0400 Systolic blood pressure 136 mm[Hg] Deborah Magallanes Other [employer] Other Encounters Encounter Date Encounter Type Care Provider Facility Start: 08-28-2023 End: 09-05-2023 Evaluation and management of inpatient SAMER A NAFFOUJE Facility:[facility] Start: 08-28-2023 End: 08-28-2023 ambulatory SAMER A NAFFOUJE Facility:[facility] Start: 08-15-2023 End: 08-15-2023 ambulatory Imad Asaad Other [employer] Other Start: 08-15-2023 Telephone encounter Imad Asaad [employer] Start: 08-13-2023 Telephone encounter Cleveland chang MD Work Phone: General Surgery Comment on above: FMLA Paperwork Start: 08-08-2023 Preprocedural examination done Cleveland Alberts MD Work Phone: [facility] Work Phone: Start: 08-07-2023 End: 08-17-2023 Evaluation and management of inpatient BOLIVAR DEAL Facility:[facility] Start: 08-07-2023 End: 08-07-2023 ambulatory CLEVELAND ALBERTS Facility:[facility] Start: 08-07-2023 End: 08-07-2023 Patient encounter procedure Cleveland Alberts MD Work Phone: General Surgery Comment on above: Gastric outlet obstr uction (Primary Dx) Start: 08-05-2023 Orders Only Jessie Zamora RN Gener al Surgery Comment on above: Appointment Start: 07-30-2023 End: 07-30-2023 ambulatory RENE CANNON Not Available Start: 07-29-2023 Telephone encounter Cleveland chang MD Work Phone: General Surgery Comment on above: Appointment Start: 07-24-2023 End: 07-26-2023 Evaluation and management of inpatient Rene Cannon Facility:[facility] Start: 07-24-2023 End: 07-26-2023 Evaluation and management of inpatient MD Rene Cannon Work Phone: [facility] [place] [facility] Work Phone: Start: 07-24-2023 End: 07-24-2023 ambulatory RENE CANNON Not Available Start: 07-10-2023 End: 07-10-2023 ambulatory RENE CANNON Not Available Start: 02-22-2023 End: 02-22-2023 ambulatory Chantal Castellanos Other [employer] Other Start: 02-22-2023 Office outpatient vi sit 15 minutes Chantal Castellanos [facility] Start: 02-06-2023 Office outpatient vi sit 15 minutes Rene Cannon Work Phone: [facility] 250 DO Work Phone: Start: 01-17-2023 ambulatory Arnel Armasdon Facilit y:[id number] Start: 01-17-2023 End: 01-17-2023 ambulatory Joselito Madsen Facility:[facility] Start: 01-17-2023 End: 01-17-2023 Admission to same day surgery center MD Rene Cannon Work Phone: [facility] [place] Work Phone: Start: 01-17-2023 End: 01-17-2023 ambulatory MD Rene Cannon Work Phone: [facility] Work Phone: Start: 01-15-2023 End: 01-15-2023 ambulatory Joselito Madsen Facility:[facility] Start: 01-15-2023 End: 01-15-2023 Patient encounter procedure MD Rene Cannon Work Phone: [facility] Work Phone: Start: 01-09-2023 ambulatory Arnel Armasdon Facilit y: Start: 12-19-2022 ambulatory Arnel Cale Facilit y:[facility] Start: 07-04-2022 ambulatory INOCENCIO ERICKSON [facility] Start: 01-11-2022 End: 01-11-2022 ambulatory Deborah Magallanes Other [employer] Other Start: 01-11-2022 Telephone encounter Deborah Magallanes [facility] Start: 12-19-2021 End: 12-19-2021 ambulatory Deborah Magallanes Other [employer] Other Start: 12-19-2021 Telephone encounter Deborah Magallanes [facility] Start: 11-21-2021 End: 11-21-2021 ambulatory Deborah Magallanes Other [employer] Other Start: 11-21-2021 Office outpatient ne w 30 minutes Deborah Marxsamara [facility] Gastroenterology Start: 11-07-2021 End: 11-10-2021 ambulatory DOUGLAS GUTIERREZ [facility] Start: 11-07-2021 End: 11-09-2021 Subsequent hospital visit by physician [facility] E[facility] EKG Comment on above: Chest pain, unspecif [...] Comment: Specimen Type: BLOOD SPEC IMENOrdering Facility: [facility] Address: [address] [place] [address] Performed By: #### T SCR ####[facility] [id number] [place] [address] [place] Start: 07-25-2023 Esophagogastroduodenoscopy MD Rene rollins Work [...] MD Work Phone: Start: 08-25-2021 Total colonoscopy Destineemickey Bynum Beatrizirlanda Work Phone: Start: 03-17-2017 Colonoscopy Mw Ekg Arthroscopy of knee Destineemickey Misa Cannon Work Phone: Cardiac catheterization Edkatherine Cannon Work Phone: Tonsillectomy Destineemickey Bynum Abdulkadir luis Work Phone: Plan of Treatment Date Care Activity Detail Author Start: 02-16-2033 Urine microalbumin profile DTa P,Tdap,Td Vaccine (2 - Td or Tdap) [facility] Start: 03-17-2027 Screening for malign ant neoplasm of colon [facility] Start: 10-16-2026 Lipid panel Lipid screen [facility] Start: 08-14-2026 Diabetes Screening Diabetes Screenin [facility] Start: 08-07-2026 Diabetes Screening Diabetes Screenin [facility] Start: 08-07-2024 BP Controlled (<130/80) BP Con trolled (<130/80) [facility] Start: 07-26-2023 [facility] Start: 07-25-2023 Comprehensive metabo lic 2000 panel - Serum or Plasma [facility] Start: 07-25-2023 [facility] Start: 07-24-2023 Blood chemistry [facility] Start: 07-24-2023 Referral to Manager Shift [facility] Start: 07-24-2023 End: 07-24-2023 [facility] Start: 07-24-2023 Referral to speech a nd language therapy service [facility] Start: 07-24-2023 Referral to professional poker player [facility] Start: 07-24-2023 Hospital admission [facility] Start: 07-24-2023 Referral to public relations manager [facility] Start: 04-25-2023 Influenza vaccination Influenz a Vaccine (#1) [facility] Start: 01-17-2023 End: 01-17-2023 [facility] Start: 10-16-2022 Creatinine measurement Creatinine mo nitoring [facility] Start: 10-16-2022 Potassium monitoring Potassium monit oring [facility] Start: 08-25-2022 Advance Directive Discussion A dvance Directive Discussion [facility] Start: 08-25-2022 Depression Assessment Depression Ass essment [facility] Start: 12-04-2021 End: 12-04-2021 Patient encounter procedure 12/04/2021 Office Visit Cardiology Douglas Gutierrez MD [address] [place] [address] [facility] [employer] Start: 04-25-2021 Influenza vaccination Flu vaccine (# 1) [facility] Start: 2020 Pneumococcal 65+ yea rs Vaccine (1 of 1 - PPSV23) Pneumococcal 65+ years Vaccine (1 of 1 - PPSV23) [facility] Start: 2020 Pneumococcal Vaccine : 65+ (1 - PCV) Pneumococcal Vaccine: 65+ (1 - PCV) [facility] Start: 2020 Pneumococcal Vaccine : 65+ (1 of 1 - PCV) Pneumococcal Vaccine: 65+ (1 of 1 - PCV) [facility] Start: 2015 RSV Vaccine (1 - 1-d ose 60+ series) RSV Vaccine (1 - 1-dose 60+ series) [facility] Start: 2010 Prostate specific an tigen measurement Prostate Cancer Screening Discussion [facility] Start: 2005 Shingles Vaccine (1 of 2) Arriaga gles Vaccine (1 of 2) [facility] Start: 2005 Shingrix Vaccine (1 of 2) Arriaga grix Vaccine (1 of 2) [facility] Start: 2000 Diabetes Screening Diabetes Screenin g [facility] Start: 2000 Screening for malign ant neoplasm of colon [facility] Start: 1990 Lipid panel Lipid Screening [facility] Start: 1974 DTaP/Tdap/Td vaccine (1 - Tdap) DTaP/Tdap/Td vaccine (1 - Tdap) [facility] Start: 1974 Urine microalbumin profile DTa P,Tdap,Td Vaccine (1 - Tdap) [facility] Start: 1973 Annual PCP Team Radiology Physician kit Disease Visit Annual PCP Team Chronic Disease Visit [facility] Start: 1973 Hepatitis C screening Hepatitis C [facility] Start: 1967 Depression Screen Depression Screen [facility] Start: 1960 COVID-19 Vaccine (1) COVID-19 Vaccin e (1) [facility] Start: 01-15-1956 Covid-19 Vaccine (#1) Covid-19 Vacci ne (#1) [facility] Start: 1955 Hepatitis C screening Hepatitis C [facility] Anion gap measurement [facility] Blood chemistry [facility] End: 11-07-2021 Cardiac event monitor Cardiac event monitor Cardiac Services Routine Chest pain, unspecified type Syncope, unspecified syncope type 1 Occurrences starting 11/07/2021 until 11/07/2021 [facility] Work Phone: Comment on above: 1 Occurrences starti ng 11/07/2021 until 11/07/2021 Dup-scan xtr veins c omplete bilateral study VASCULAR REPORT Imaging Ordered: 11/08/2021 [facility] Comment on above: Ordered: 11/08/2021 Patient referral [facility] Work Phone: End: 11-07-2021 Stress test, myoview Stress test, myoview Cardiac Services Routine Chest pain, unspecified type Syncope, unspecified syncope type 1 Occurrences starting 11/07/2021 until 11/07/2021 [facility] [employer] Phone: Comment on above: 1 Occurrences starti ng 11/07/2021 until 11/07/[facility]21 [facility] P[facility] Date Payer Category Payer Self-pay [id number] 2020 Medicare [id number] 2017 Unknown 1959 Unknown [id number] 1955 Unknown [id number] 2.16.84 0.1.731703.3.579.2.593 1955 Unknown [id number] 2.16.84 0.1.402080.3.579.2.593 1955 Unknown [id number] 2.16.84 0.1.626498.3.579.2.593 1955 Unknown [id number] 2.16.84 0.1.735677.3.579.2.593 1955 Unknown [id number] 2.16.8 40.1.760223.3.579.2.174 1955 Unknown [id number] 2.16.8 40.1.639143.3.579.2.174 1955 Unknown [id number] 2.16.8 40.1.878890.3.579.2.174 1955 Unknown [id number] 2.16.8 40.1.360767.3.579.2.174 1955 Unknown [id number] 2.16.8 40.1.708410.3.579.2.174 1955 Unknown [id number] 2.16.8 40.1.914163.3.579.2.174 1955 Unknown [id number] 2.16. 840.1.011616.3.579.2.356 1955 Unknown [id number] 2.16. 840.1.181791.3.579.2.356 1955 Unknown [id number] 2.16. 840.1.576464.3.579.2.356 1955 Unknown [id number] 2.16.840 .1.796050.3.579.2.1259 1955 Unknown [id number] 2.16.840 .1.209614.3.579.2.1259 1955 Unknown [id number] 2.16.840 .1.395798.3.579.2.1259 Unknown [id number] 2.16.8 40.1.521729.3.579.2.531 Unknown [id number] 2.16.8 40.1.103693.3.579.2.531 Unknown [id number] 2.16.8 40.1.751349.3.579.2.531 Social History Date Type Detail Facility Start: 10-23-2021 End: 08-07-2023 Tobacco smoking status NHIS Never smoked tobacco [employer] Start: 10-23-2021 End: 08-07-2023 Tobacco use and exposure Smokeless tobacco non-user [employer] Phone: Start: 10-24-2021 Alcohol intake Current drinke r of alcohol (finding) [employer] Phone: Start: 10-24-2021 End: 08-07-2023 Alcohol intake [employer] Phone: Comment on above: couple beers at [facility] t; Start: 1955 Sex Assigned At Not on file [employer] Phone: Start: 08-07-2023 Sex Assigned At [employer] Other Start: 1955 Sex Assigned At Male [facility] Tobacco smoking status PRIS Tobacco smoking consumption unknown [facility] Start: 08-07-2023 Alcohol intake Ex-drinker (finding) [facility] National Score (1-100), lower number is lower risk 63 [facility] Medical Equipment Procedure Code Equipment Code Equipment Origin al Text Equipment Identifier Dates Wgy-12-Muee-S Percutane Endoscopic Gastrostomy Set [id number] Start: 08-13-2023 Goals Date Patient Goal Desired Activity /State Functional Status Date Assessment Result Facility 07-26-2023 Functional status Patient at Baseline [facility] Work Phone: 07-24-2023 Functional status Patient at Baseline [facility] Work Phone: Mental Status Date Assessment Result Facility 07-26-2023 Cognitive function Cognitive Sta tus Patient at Baseline [facility] Work Phone: 07-24-2023 Cognitive function Cognitive Sta tus Patient at Baseline [facility] Work Phone: Clinical Notes 11-07-2021 to 09-05-2023 Telephone Encounter - Jessie Zamora RN - 08/14/2023 9:12 AM ESTTelephone Encounter - Jessie Zamora RN - 08/13/2023 10:24 AM Cleveland Chinchilla MD - 08/07/2023 2:25 PM EST Note Date & Type Note Facility 09-05-2023 [facility] 09-04-2023 Note [facility] 09-03-2023 Note [facility] 09-02-2023 Note HNO ID: [id number] Author: MARYAM MEJIA RN Service: Care Management Author Type: Registered Nurse Type: Care Mgt Progress Note Filed: 09/02/2023 13:34 Note Text: cont. with TPN, optimize pt for OR planned Friday [facility] 09-02-2023 Note [facility] 09-01-2023 Note [facility] 08-31-2023 Note [facility] 08-30-2023 Note [facility] 08-29-2023 Note HNO ID: [id number] Author: LAYNE CARR RN Service: ? Author Type: Registered Nurse Type: Nursing Progress Note Filed: 08/29/2023 16:30 Note Text: 1630 paged SROC, is it ok to use picc if so we need an order. [facility] 08-29-2023 Note [facility] 08-29-2023 Note [facility] 08-28-2023 Note HNO ID: [id number] Author: CLEVELAND ALBERTS MD Service: ? Author [...] Neuro: Gait deangelo (more content not included)... [facility] 08-26-2023 Note HNO ID: [id number] Author: Andreas Ford DO Service: ? Author Type: Fellow Type: Progress Notes Filed: 08/26/2023 12:36 PM Note Text: [facility] Multidisciplinary Umeuuv-Qlhwwvzjk-Qalluwg AND Upper GI Case Conference -- Consensus [...] duodenojejunostomy bypass if able Andreas Ford DO HPB Surgical Fellow [facility] 08-17-2023 Note [facility] 08-17-2023 Note HNO ID: [id number] Author: Margot Gonzalez, LUCILLE Service: ? Author Type: Registered Nurse Type: Nursing Progress Note Filed: 08/17/2023 3:34 AM Note Text: 0030 New TF bag hung, TF advanced to 50 ml/hr no c/o gastric upset or nausea. [facility] 08-16-2023 Note [facility] 08-16-2023 Note [facility] 08-15-2023 Note [facility] 08-15-2023 Note [facility] 08-14-2023 Note [facility] 08-14-2023 Note [facility] 08-14-2023 Miscellaneous Notes Kindra from [employer] returned call yesterday stating that she had emailed short term disability papers to the patient - they spoke on Friday. Informed me that they need a letter stating an estimated return to work date, when was the first day he was unable to work, and the reasoning. Letter to be faxed and will ask patient for the emailed paperwork. Call made to [facility] - patient employer to get [place] paperwork for him. Left a VM with Kindra. Gave her cell number to call back and/or fax number to fax paperwork. documented in this encounter [facility] 08-13-2023 Note [facility] 08-13-2023 [facility] 08-12-2023 Note [facility] 08-11-2023 [facility] 08-10-2023 [facility] 08-09-2023 [facility] 08-08-2023 Note [facility] 08-07-2023 History and physical note New Patient [...] and symmetric. Sensation grossly intact. Abdomen: Negative [employer]obile [employer] Worker present: Yes () ASSESSMENT 68-year-old male with [...] Level: 5 - High Cleveland Alberts MD [facility] / [facility] August 07, 2023 documented in this encounter [facility] 08-05-2023 Miscellaneous Notes Called patient and spoke with him about coming for a visit with Dr. Alberts. Patient understands he was referred by Dr. Linder. Asked patient to bring any past medical history with him. Patient understanding and thankful for call and appointment. *Requested images to be pushed from [facility] 08/05. Also faxed release of information to patients PCP - Dr. Cannon in [facility]. documented in this encounter [facility] 07-29-2023 Miscellaneous Notes New patient referral from Dr. 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 Contacted the office to resend records. Please advise on scheduling documented in this encounter [facility] 07-26-2023 Progress note Note Date/Time July 26, 2023 11:49am [facility] [address] [place] [address] Nephrology Progress Note Signed Patient: Aisha Julien MR#: [id number] : 1955 Acct:[id number] Age/Sex: 68 / M Adm Date: 3 Loc: Room: [address] [place] [address] Type: ADM IN Attending Dr: Gela Eller [...] 5 Mg Tablet) 5 mg PO QAM [facility] Stop: 07/24/24 08:59 Last Admin: 07/26/23 08:40 Dose: 5 mg Hydralazine HCl (Hydralazine 20 Mg/Ml Vial) 10 mg IV-PUSH Q4H PRN PRN Reason: if SBP > 185 Stop: 07/23/24 16:29 Hydromorphone HCl (Hydromorphone 1 Mg/Ml Syringe) 0.25 mg IV-PUSH Q4H PRN PRN Reason: pain Lactated Ringer's (Lactated Ringers) 1,000 mls @ 75 mls/hr IV .[id number] [facility] Stop: 07/24/24 13:14 Last Admin: 07/26/23 03:54 [...] 0.4 Mg Cap.Er.24h) 0.4 mg PO QAM [facility] Stop: 07/24/24 08:59 Last Admin: 07/26/23 08:40 [...] Documented By: Jose A Calzada MD 07/26/23 114 Signed By: <Electronically signed by Jose A Calzada MD> 07/26/23 1145 [facility] Work Phone: 1(703) 649-297312-01-2023 Progress note Author Gela Eller [facility] July 25, 2023 12:59pm Note Date/Time July 25, 2023 1 2:59pm [facility] [address] [place] [address] Hospitalist Progress Note Signed Patient: Aisha Julien MR#: [id number] : 1955 Acct:[id number] Age/Sex: 68 / M Adm Date: 3 Loc: Room: [address] [place] [address] Type: ADM IN Attending Dr: Gela Eller [...] Dose Route Start Last Admin Trade Name Praveenq PRN Reason Stop Dose Admin Acetaminophen 650 [...] 0.4 Mg Cap.Er.24h PO 07/24/24 08:59 QAM [facility] A&P - Hospitalist Assessment/Plan (1) Duodenal mass: [...] <Electronically signed by Gela Eller MD> 07/25/23 5729 [facility] Work Phone: 1(750) 832-960812-01-2023 History and physical note Author Gela Eller [facility] July 25, 2023 12:57pm Note Date/Time July 24, 2023 4:18pm [facility] [address] [place] [address] Hospitalist H&P Signed Patient: Aisha Julien MR#: [id number] : 1955 Acct:[id number] Age/Sex: 68 / M Adm Date: 3 Loc: Room: [address] [place] [address] Type: ADM IN Attending Dr: Gela Eller [...] any coronary artery disease. Ventriculogram showed ejection [id number]% Admission EKG showed normal sinus rhythm without [...] mass, portal vein/SMV thrombosis cannot be excluded. [facility] Medical History (Updated 07/25/23 @ 12:42 [...] mg (99 mg) tablet 99 mg PO QAM 01/15/23 [History Confirmed 07/24/23] diltiazem HCl 180 [...] % (Auto) 12.6 % (.) 07/24/23 12:28 [place] % (Auto) 10.3 % (.) 07/24/23 12:28 Eos % (Auto) 1.0 % (.) 07/24/23 12:28 Baso % (Auto) 0.5 % (.) 07/24/23 12:28 Nucleat RBC Rel Count 0.2 /100 WBC (0-0.5) 07/24/23 12:28 Neut # (Auto) 5.5 x10E3/uL (1.8-7.7) 07/24/23 12:28 Lymph # (Auto) 0.9 x10E3/uL (1.00-4.8) L 07/24/23 12:28 [place] # (Auto) 0.8 x10E3/uL (0.0-0.8) 07/24/23 12:28 [...] pH 5.5 (5.0-9.0) 07/24/23 13:54 Ur Specific [place] 1.015 (1.001-1.030) 07/24/23 13:54 Urine Protein 30 [...] signed by Gela Eller MD> 07/25/23 1257 [facility] Work Phone: 1(579) 172-580512-01-2023 Consult note Author Jose A Calzada [facility] July 25, 2023 12:45pm Note Date/Time July 25, 2023 1 2:45pm [facility] [address] [place] [address] Nephrology Consult Note Signed Patient: Aisha Julien MR#: [id number] : 1955 Acct:[id number] Age/Sex: 68 / M Adm Date: 3 Loc: Room: [address] [place] [address] Type: ADM IN Attending Dr: Gela Eller MD Copies to: MD Rene Urena MD Ruta Semaskiene, MD~ Providers Consult Date: 07/25/23 Requesting Provider: Gela Eller MD Primary Care Provider: Rene Cannon MD HPI Reason for Consult: ENEDINA History of Present [...] 12 system review is negative this morning [facility] Medical History (Updated 07/25/23 @ 12:42 [...] mg (99 mg) tablet 99 mg PO QAM 01/15/23 [History Confirmed 07/24/23] diltiazem HCl 180 [...] 5 Mg Tablet) 5 mg PO QAM [facility] Stop: 07/24/24 08:59 Hydralazine HCl (Hydralazine 20 Mg/Ml Vial) 10 mg IV-PUSH Q4H PRN PRN Reason: if SBP > 185 Stop: 07/23/24 16:29 Hydromorphone HCl (Hydromorphone 1 Mg/Ml Syringe) 0.25 mg IV-PUSH Q4H PRN PRN Reason: pain Potassium Chloride/Sodium Chloride (0.9% Nacl-40 Meq Kcl) 1,000 mls @ 150 mls/hr IV .Q6H40M [facility] Stop: 07/23/24 13:44 Last Admin: 07/25/23 11:24 [...] 0.4 Mg Cap.Er.24h) 0.4 mg PO QAM [facility] Stop: 07/24/24 08:59 Exam Physical Exam Vital [...] Appearance Clear Urine pH 5.5 Ur Specific [place] 1.015 Urine Protein 30 H Urine Glucose (UA) Normal Urine Ketones Trace H Urine Occult Blood Negative Urine Nitrite Negative Ur Leukocyte Esterase Negative Urine RBC 5-9 H Urine WBC 0-1 Urine Bacteria None seen 07/25/23 05:46 BUN 44 H Creatinine 2.86 H D Albumin 3.4 L Urine Color Urine Appearance Urine pH Ur Specific [place] Urine Protein Urine Glucose (UA) Urine Ketones [...] 07/24/2023 Impression dictated by: Lebron Santa Jr., D.O.07/24/2023 2:43 PM Dictation Location: [place] [address] Any impression(s) listed above is documentation that [...] signed by Jose A Calzada MD> 07/25/23 1245 [facility] Work Phone: 1(266) 896-115612-01-2023 [facility] Consult note Author Nohemy Linder [facility] July 24, 2023 4:38pm Note Date/Time July 24, 2023 4:35pm [facility] [address] [place] [address] Gastroenterology Consult Note Signed Patient: Aisha Julien MR#: [id number] : 1955 Acct:[id number] Age/Sex: 68 / M Adm Date: 3 Loc: Room: [address] [place] [address] Type: ADM IN Attending Dr: Gela Eller [...] negative unless noted below or in HPI [facility] Medical History (Updated 07/24/23 @ 16:37 [...] mg PO QA 01/15/23 [History Confirmed 07/24/23] Exam Physical Exam [...] % (Auto) 75.6 Lymph % (Auto) 12.6 [place] % (Auto) 10.3 Eos % (Auto) 1.0 Baso % (Auto) 0.5 Nucleat RBC Rel Count 0.2 Neut # (Auto) 5.5 Lymph # (Auto) 0.9 L [place] # (Auto) 0.8 Eos # (Auto) 0.1 [...] Color Urine Appearance Urine pH Ur Specific [place] Urine Protein Urine Glucose (UA) Urine Ketones Urine Occult Blood Urine Nitrite Urine Bilirubin Urine Urobilinogen Ur Leukocyte Esterase Urine RBC Urine WBC Ur Squamous Epith Cells Urine Bacteria Hyaline Casts 07/24/23 07/24/23 07/24/23 12:28 12:28 13:54 Corrected WBC Uncorrected WBC Count RBC Hgb Hct MCV MCH MCHC RDW Plt Count MPV Neut % (Auto) Lymph % (Auto) [place] % (Auto) Eos % (Auto) Baso % (Auto) Nucleat RBC Rel Count Neut # (Auto) Lymph # (Auto) [place] # (Auto) Eos # (Auto) Baso # [...] Appearance Clear Urine pH 5.5 Ur Specific [place] 1.015 Urine Protein 30 H Urine Glucose [...] By: <Electronically signed by Nohemy Linder MD> 07/24/23 1638 [facility] Work Phone: 1(362) 557-101907-01-2023 Evaluation note* Encounter Date Diagnosis Assessment Notes Treatment Notes Treatment Clinical Notes Feb, Visit for suture removal (ICD-10 - Z48.02) sutures removed successfully--see procedural note. wound healed up well. no questions or concerns. follow up with PCP prn. Feb, Laceration of nose, initial encounter (ICD-10 - S01.21XA) lac repair done in [facility] [employer] Other 05-26-2023 Discharge summary Author Joselito Madsen [facility] January 17, 2023 10:24am Note Date/Time January 17, 2023 10:22 am [facility] [address] [place] [address] Discharge Summary Signed Patient: Aisha Julien MR#: [id number] : 1955 Acct:[id number] Age/Sex: 67 / M Adm Date: 3 Loc: Room: Attending Dr: Joselito Madsen DO Copies [...] 16 155/79 H 98 Room Air 01/17/23 07:01/17/23 07:26 01/17/23 07:26 01/17/23 07:26 01/17/23 07:01/17/23 07:52 Discharge Plan Discharge Plan Patient Disposition: Home Diet: Low-Cholesterol Additional Instructions: DISCHARGE INSTRUCTIONS FOR CARDIAC HAND STONER PHONE NUMBER OF YOUR PHYSICIAN: [phone] PROCEDURE: Heart Cath The following instructions have [...] cold, numb, blue or white, call the backup sawyer immediately. 4. ACTIVITY: You are advised to [...] bottle, follow the instructions on the bottle. [facility] is not responsible for incorrect prescription information [...] <Electronically signed by Joselito Madsen DO> 01/17/23 1024 [facility] Work Phone: 1(204) 135-510605-26-2023 [facility] Evaluation note* Encounter Date Diagnosis Assessment Notes Treatment Notes Treatment Clinical Notes Oct, Abdominal pain (ICD-10 - R10.9) OBTAIN RECORDS FROM [facility]- UPPER GI OBTAIN COLONOSCOPY AND CT SCAN[facility] Oct, Gastritis without bleeding, unspecified chronicity, unspecified gastritis type (ICD-10 - K29.70) Oct, GERD (gastroesophageal reflux disease) (ICD-10 - K21.9) STOP FAMOTIDINE [employer] Other 03-16-2022 History of Present illness Narrative* Caity Hamilton RCP - 11/07/2021 12:30 PM EDT The patient was educated on the use of an event monitor. The patient's comprehension was high. The patient was able to verbalize recall. The patient was instructed on how and when to return the monitor. documented in this [facility] Phone: 1(608) 421-735603-16-2022 Note [facility] Carotid Procedure Patient Name WILY LEONARD Date of Study 11/07/2021 L Date of 1955 Gender Male Age 66 year(s) Race Room Number Corporate ID [id number] # Patient Acct [id number] # MR # [id number] Agriculture Mechanic Jocelyn Mcghee, RT Interpreting Estephania Pichardo Physician Referring Referring Physician RENE CANNON, Nurse VERNA* Practitioner [facility] * Procedure Type of Study: Cerebral: Carotid, Carotid Scan Bilateral. Indications for Study:Bruit, carotid. Patient Status:Routine. Conclusions Summary Mild increase in prox CCA velocity, without spectral broadening, not considered significant. Minimal plaque right CCA. Negative left sided study. Antegrade flow in the vertebrals. Signature Electronically signed by RT Gómez(R)(M)(CT)([facility])(Agriculture Mechanic) on 11/07/2021 11:33 AM Findings: Right Impression: [...] !Mid ICA !87.54 !27.97 (more content not included)...[facility] CPACSEvaluation note* Diagnosis Chest pain, unspecified type Syncope, unspecified syncope type documented in this encounter [employer] Phone: evaluation note* Diagnosis Bruit Other symptoms involving cardiovascular system documented in this encounter [employer] Phone: evaluation noteNo InformationNort [employer] Other Evaluation noteNo assessment information available [facility] Work Phone: Evaluation note* Diagnosis Onset Date Resolution Status Acute renal failure acute Epigastric pain acute Hypokalemia acute Hypotension acute Small bowel mass acute Unintentional weight loss ac estela [facility] Work Phone: Evaluation note* Diagnosis Onset Date Resolution Status Acute renal failure acute Duodenal mass acute Epigastric pain acute Hypokalemia acute Hypotension acute Small bowel mass acute Unintentional weight loss ac estela [facility] Work Phone: Evaluation note* Diagnosis Gastric outlet obstruction- Primary Acquired hypertrophic pyloric stenosis documented [facility] - [facility]* Type Description Date Medical History HTN Medical History GERD Surgical History knee arthroscopy BILATEAL-3 RAMSES ES EACH Style [employer] Other History general Narrative - Reported* Type Description Date Medical History HTN Medical History GERD Surgical History knee arthroscopy BILATEAL-3 RAMSES ES EACH Hospitalization History DEHYDRATION Style [employer] Other Hospital Discharge instructions Additional Instructions DISCHARGE INSTRUCTIONS FOR CARDIAC HAND STONER PHONE NUMBER OF YOUR PHYSICIAN: [phone] PROCEDURE: Heart Cath The following instructions have [...] cold, numb, blue or white, call the backup sawyer immediately. 4. ACTIVITY: You are advised to [...] bottle, follow the instructions on the bottle. [facility] is not responsible for incorrect prescription information provided by the patient during their visit. Do not stop your medications without consulting your health care provider. Please take the list with you to your next doctor's appointment.[facility] Work Phone: Hospital Discharge instructions Additional Instructions You will need to follow-up with [facility] physician Dr. Bety Amin for further evaluation of your duodenal mass. Dr. Tadeo's office will arrange appointment and we will give you a [facility] Work Phone: Progress note Author Gela Eller [facility] July 26, 2023 2:50pm Note Date/Time July 26, 2023 2 :50pm [facility] [address] [place] [address] Hospitalist Progress Note Signed Patient: Aisha Julien MR#: [id number] : 1955 Acct:[id number] Age/Sex: 68 / M Adm Date: 3 Loc: Room: [address] [place] [address] Type: ADM IN Attending Dr: Gela Eller [...] Dose Route Start Last Admin Trade Name Praveenq PRN Reason Stop Dose Admin Acetaminophen 650 [...] Lactated Ringers IV 07/24/24 13:14 75 mls/hr .[id number] NOMI Administration Sodium Chloride 1,000 mls @ [...] external mass effect/compression I did discuss with professional poker player, his office will arrange follow-up with gastroenterology [...] signed by Gela Eller MD> 07/26/23 1450 [facility] Work Phone: Summary Purpose Family History [...] Procedures Cardiac event monitor Douglas Gutierrez MD [address] [place] [address] Referral ID Status Reason Start Date Expiration Date Visits Re quested Visits Authorized [id number] Closed 10/25/2021 10/25/2022 1 1 Specialty Diagnoses / Procedures Referred By Contac t Referred To Contact Cardiology Diagnoses Chest pain, unspecified type Syncope, unspecified syncope type R07.9 (ICD-10-CM) - Chest pain, unspecified type Procedures Stress test, myoview CHG MYOCARDIAL SPECT MULTIPLE STUDIES 06801 - CHG MYOCARDIAL SPECT MULTIPLE STUDIES Douglas Gutierrez MD [address] [place] [address] [place] [address] [place] [address] Referral ID Status Reason Start Date Expiration Date Visits Re quested Visits Authorized [id number] Closed 10/25/2021 10/25/2022 4 4 Specialty Diagnoses / Procedures Referred By Erlin t Referred To Contact Vascular Lab Diagnoses Bruit R09.89 (ICD-10-CM) - Bruit Procedures VL DUP CAROTID BILATERAL TX DUPLEX SCAN EXTRACRANIAL,BILAT 42135 - TX DUPLEX SCAN EXTRACRANIAL,BILAT Douglas Gutierrez MD [address] [place] [address] Referral ID Status Reason Start Date Expiration Date V isits Requested Visits Authorized [id number] Pending Review 10/25/2021 10/25/2022 1 1 Chief [...] Unintentional weight loss Chief Complaint * AISHA JULINE is being seen for cath follow up. [...] section and content) DATE CREATED AUTHOR 10/17/[address] [facility] dical Specialist DATE CREATED AUTHOR AUTHOR'S ORGANIZ ATION 11/04/2021 [facility] DATE CREATED AUTHOR AUTHOR'S ORGANIZ ATION 12/15/2021 [facility] DATE CREATED AUTHOR AUTHOR'S ORGANIZ ATION 07/05/2022 [facility] DATE CREATED AUTHOR AUTHOR'S ORGANIZ ATION 02/03/2023 [facility] DATE CREATED AUTHOR AUTHOR'S ORGANIZ ATION 08/01/[address] [facility] dical Specialists EPIC DATE CREATED AUTHOR AUTHOR'S ORGANIZ ATION 09/04/2023 [facility] DATE CREATED AUTHOR AUTHOR'S ORGANIZ ATION 09/08/2023 [facility] DATE CREATED AUTHOR AUTHOR'S ORGANIZ ATION 09/12/2023 [facility] Reason for Visit (unrecogniz ed section and content) Specialty Diagnoses / Procedures Referred By Contac t Referred To Contact Diagnoses Chest pain, unspecified type Syncope, unspecified syncope type Procedures Cardiac event monitor Douglas Gutierrez MD [address] [place] [id number] Referral ID Status Reason Start Date Expiration Date Visits Re quested Visits Authorized [id number] Closed 10/25/2021 10/25/2022 1 1 Specialty Diagnoses / Procedures Referred By Contac t Referred To Contact Cardiology Diagnoses Chest pain, unspecified type Syncope, unspecified syncope type R07.9 (ICD-10-CM) - Chest pain, unspecified type Procedures Stress test, myoview CHG MYOCARDIAL SPECT MULTIPLE STUDIES 34368 - CHG MYOCARDIAL SPECT MULTIPLE STUDIES Douglas Gutierrez MD [address] [place] [address] [address] Referral ID Status Reason Start Date Expiration Date Visits Re quested Visits Authorized [id number] Closed 10/25/2021 10/25/2022 4 4 Specialty Diagnoses / Procedures Referred By Contac t Referred To Contact Vascular Lab Diagnoses Bruit R09.89 (ICD-10-CM) - Bruit Procedures VL DUP CAROTID BILATERAL TX DUPLEX SCAN EXTRACRANIAL,BILAT 78582 - TX DUPLEX SCAN EXTRACRANIAL,BILAT Douglas Gutierrez MD [address] [place] [id number] Referral ID Status Reason Start Date Expiration Date V isits Requested Visits Authorized [id number] Pending Review 10/25/2021 10/25/2022 1 1 Reason [...] Active Nohemy Linder MD Other Provider Active Optical Mechanic Apprentice Relationship Specialty Start Date End Date Rene Cannon MD [address] [place] [address] PCP - General 10/17/21 Optical Mechanic Apprentice Relationship Specialty Start Date End Date Rene Cannon MD [address] [place] [address] PCP - General 10/17/21 Optical Mechanic Apprentice Relationship Specialty Start Date End Date Rene Cannon MD [address] [place] [address] PCP - General 10/17/21 Optical Mechanic Apprentice Relationship Specialty Start Date End Date Rene Cannon MD [address] [place] [address] PCP - General 10/17/21 Optical Mechanic Apprentice Relationship Specialty Start Date End Date Rene Cannon MD [address] [place] [address] PCP - General 10/17/21 Team Status: Inactive Member Role Status Dates Rene Cannon MD Primary Care Provider Active W Jean Madsen DO Attending Provider Active Optical Mechanic Apprentice Relationship Specialty Start Date End Date Rene Cannon MD [address] [place] [address] (Fax) PCP - General Family Medicine 08/05/23 Optical Mechanic Apprentice Relationship Specialty Start Date End Date Rene Cannon MD [address] [place] [address] (Fax) PCP - General Family Medicine 08/05/23 Optical Mechanic Apprentice Relationship Specialty Start Date End Date Rene Cannon MD [address] [place] [address] (Fax) PCP - General Family Medicine 08/05/23 Optical Mechanic Apprentice Relationship Specialty Start Date End Date Rene Cannon MD [address] [place] [address] (Fax) PCP - General Family Medicine 08/05/23 Source Comments (unrecognize d section and content) In the event this informatio n is protected by the Federal Confidentiality of Alcohol and Drug Abuse Patient Records regulations: The Federal rules restrict any use of the information to criminally investigate or prosecute any alcohol or drug abuse patient.[facility] the event this information is protected by the Federal Confidentiality of Alcohol and Drug Abuse Patient Records regulations: The Federal rules restrict any use of the information to criminally investigate or prosecute any alcohol or drug abuse patient.[facility] the event this information is protected by the Federal Confidentiality of Alcohol and Drug Abuse Patient Records regulations: The Federal rules restrict any use of the information to criminally investigate or prosecute any alcohol or drug abuse patient.[facility] the event this information is protected by the Federal Confidentiality of Alcohol and Drug Abuse Patient Records regulations: The Federal rules restrict any use of the information to criminally investigate or prosecute any alcohol or drug abuse patient.[facility] the event this information is protected by the Federal Confidentiality of Alcohol and Drug Abuse Patient Records regulations: The Federal rules restrict any use of the information to criminally investigate or prosecute any alcohol or drug abuse patient.[facility] FOR RECORDS PERTAINING TO PATIENTS WHO ARE [...] BE BASED ON THE PRIMARY CLINICAL RECORDS. [facility] [employer] [facility]. provides no warranty or guarantee of the accuracy or completeness of information in this document.
[2023-09-15 12:20] LABS: Alanine Aminotransferase 32 U/L (16-63); Albumin Globulin Ratio 0.8; Albumin Level 2.7 g/dL (3.4-5.0); Alkaline Phosphatase 165 U/L (46-116); Anion Gap 14.5; Aspartate Amino Transferase 22 U/L (15-37); BUN Creatinine Ratio 31.6; Bilirubin Total 0.5 mg/dL (0.2-1.0); Carbon Dioxide 23.9 mmol/L (21.0-32.0); Chloride 106 mmol/L (98-107); Estimated GFR (African America >60 (>=60); Estimated GFR (Non-African Ame >60 (>=60); Globulin 3.3 g/dL; Glucose 89 mg/dL (74-106); Phosphorus 4.3 mg/dL (2.6-4.7); Potassium 4.4 mmol/L (3.5-5.1); Sodium 140 mmol/L (136-145); Triglycerides 40 mg/dL (<=150)
[2023-09-15 12:39] LABS: Basophils Percent Auto 0.6 % (0.2-2.0); Eosinophils Absolute Auto 0.2 10^3/uL (0.0-0.7); Eosinophils Percent Auto 4.6 % (0.9-7.0); Hematocrit 30.7 % (42.0-54.0); Hemoglobin 9.5 g/dL (14.0-18.0); Immature Granulocytes Abs Auto 0.02 10^3/uL (0.00-0.03); Immature Granulocytes Pct Auto 0.4 % (0.0-0.5); Lymphocytes Absolute Auto 0.8 10^3/uL (1.2-3.8); Lymphocytes Percent Auto 17.4 % (20.5-60.0); Mean Corpuscular HGB Conc 30.9 g/dL (29.9-35.2); Mean Corpuscular Hemoglobin 28.7 pg (25.9-34.0); Mean Corpuscular Volume 92.7 fL (80.0-94.0); Mean Platelet Volume 12.6 fL (9.5-13.5); Monocytes Absolute Auto 0.6 10^3/uL (0.3-0.8); Monocytes Percent Auto 12.8 % (1.7-12.0); Neutrophils Absolute Auto 3.1 10^3/uL (1.4-6.5); Neutrophils Percent Auto 64.2 % (43.0-75.0); Platelet Count 217 10^3/uL (150-450); Red Blood Count 3.31 10^6/uL (4.70-6.10); Red Cell Distribution Width 13.5 % (11.0-15.0); White Blood Count 4.8 10^3/uL (4.0-11.0)
== END 2023-09-15 11:49 | disposition home or self-care (01) ==
LOC: LAB 11:48
PROVIDERS: PCP Family Medicine
DX: Z79.899 Other long term (current) drug therapy (principal)
CPT/HCPCS: 36415; 80053; 83735; 84100; 84478; 85025

== ENCOUNTER 2023-09-22 11:37 | Outpatient (REF) | payer BC, SELFPAY ==
--- OUTSIDE RECORDS SUMMARY | 2023-09-22 11:41 | XMS_ITS | CCD ---
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 Rene Cannon [facility] Unava ilable Arnel Madsen Attending Unavailable Arnel Madsen Referring Unavailable Dr. Rene Cannon [facility] Unava ilArnel Loredo Attending Unavailable Rene Cannon [...] Unavailable BOLIVAR DEAL Consulting Unavailable RENE CANNON [facility] Unavailab le NAFFOUSILVANO, SAMER A Attending Unavailable NAFFOBHAVANA, SAMER A Admitting Unavailable ARISTEO, SAMER A Admitting Unavailable RENE CANNON [facility] Care Unavailab le NAFFOUJE, SAMER A Attending Unavailable NAFFOUSILVANO, SAMER A Referring Unavailable NAFFOBHAVANA, SAMER A Attending Unavailable RENE CANNON [facility] Unavailab le NAFFOUJE, SAMER A Attending Unavailable RENE CANNON [facility] Unavailab le ASAAD, IMAD Referring Unavailable Medications [...] Start: 10-24-2021 take 1 capsule by mo azh once daily in the evening dicyclomine (BENTYL) [...] Test Name Value Interpretation Reference Range Facility [facility] 09-15-2023 [facility] Telephone ([id number]) -- AISHA JULIEN ([id number]) 1955 M Date Time Provider Department 09/15/23 [place] A [id number] During your visit today, we recorded the following information about you: Kelsea Valenzuela MA 09/15/2023 1:04 PM Signed Cesilia from [facility] called needing clarification on his discharge medications. Call back # [phone] Jessie Zamora RN 09/15/2023 4:21 PM Signed Called Cesilia armstrong from [facility] to help clarify medications from recent admission. Allergies As of Date: 09/15/2023 (No Known Allergies) Date Reviewed: 09/05/2023 Reviewed by: Guerline Peralta, LUCILLE - Fully Assessed Reason for Visit: Patient Question [8667] Rn School - Other [7108] Prescriptions as of 09/15/2023 - potassium (POTASSIMIN ORAL) Take by mouth. [...] 7 DAYS Problem List As Of Date 09/15/2023 Noted Resolved Failure to thrive in adult [...] 09/01/2023 Encounter Status:Closed by JESSIE ZAMORA on 09/15/23 [facility] Judy 09-10-2023 [facility] Telephone ([id number]) -- AISHA JULIEN ([id number]) 1955 M Date Time Provider Department 09/10/23 [place] [id number] During your visit today, we recorded the following information about you: Sylvia Bueno Naveen 09/10/2023 2:20 PM Signed Mayra called from [facility]. She need a current medication list faxed to [phone]. If you have any questions she can be reached at [phone]. Thank you! Jessie Zamora RN 09/11/2023 10:01 AM Signed Hospital discharge medication list faxed 09/10/23 to [facility]. Allergies As of Date: 09/10/2023 (No Known [...] Status:Closed by JESSIE ZAMORA on 09/11/23 Normal [facility] Albumin SerPl-mCncon 024 Albumin [Mass/Vol] 2.9 g/dL Low 3.9-4.9 [facility] Comment on above: Order Comment: Arben suarez Type: BLOOD SPECIMENOrdering Facility: [facility] Address: [address] [place] [address] Performed By: #### 1 751-7, 09919-7, , 2776-08 ####[facility] LABORATORYCLIA [id number] [place] [address] [place] Basic metabolic 2000 panelon 09-05-2023 Anion gap [Moles/Vol] 10 mmol/L Normal 05-12 [facility] Comment on above: Order Comment: Arben suarez Type: BLOOD SPECIMENOrdering Facility: [facility] Address: [address] [place] [address] Performed By: #### 1 751-7, 82435-6, , 2776-08 ####[facility] LABORATORYCLIA [id number] [place] [address] [place] Calcium [Mass/Vol] 8.2 mg/dL Low 8.5-10.2 [facility] Comment on above: Order Comment: Arben suarez Type: BLOOD SPECIMENOrdering Facility: [facility] Address: [address] [place] [id number] Performed By: #### 1 751-7, 96460-8, , 2776- ####[facility] LABORATORYCLIA [id number] [place] [address] [place] Chloride [Moles/Vol] 107 mmol/L High 97-105 [facility] Comment on above: Order Comment: Speci men Type: BLOOD SPECIMENOrdering Facility: [facility] Address: [address] [place] [address] Performed By: #### 1 751-7, 94125-8, , 2776-08 ####[facility] LABORATORYCLIA [id number] [place] [address] [place] CO2 [Moles/Vol] 24 mmol/L Normal 22-30 [facility] Comment on above: Order Comment: Speci men Type: BLOOD SPECIMENOrdering Facility: [facility] Address: [address] [place] [address] Performed By: #### 1 751-7, 09561-7, , 2776-08 ####[facility] LABORATORYCLIA [id number] [place] [address] [place] Creatinine [Mass/Vol] 0.83 mg/dL Normal 0.73-1.22 [facility] Comment on above: Order Comment: Speci men Type: BLOOD SPECIMENOrdering Facility: [facility] Address: [place] [address] Performed By: #### 1 751-7, 60816-3, , 2776-08 ####[facility] LABORATORYCLIA [id number] [place] [address] [place] Creatinine and Glomerular filtration rate.predicted panel (S/P/Bld) 95 mL/min/1.73m??? Normal >=60 [facility] Comment on above: Order Comment: Speci men Type: BLOOD SPECIMENOrdering Facility: [facility] Address: [address] [place] [address] Result Comment: Bailey mated Glomerular Filtration Rate [...] actual GFR. Performed By: #### 1 751-7, 56306-2, , 2776- ####[facility] LABORATORYCLIA [id number] [place] [address] [place] Glucose [Mass/Vol] 75 mg/dL Normal 74-99 [facility] Comment on above: Order Comment: Arben suarez Type: BLOOD SPECIMENOrdering Facility: [facility] Address: [address] [place] [address] Result Comment: The [place] [employer] (ADA) provides guidance for cutoff [...] Standards of Medical Care in Diabetes 2016, [place] [employer]. Diabetes Care. 2016.39(Suppl 1). Performed By: #### 1 751-7, 79411-2, , 2776-08 ####[facility] LABORATORYCLIA [id number] [place] [address] [place] Potassium [Moles/Vol] 4.4 mmol/L Normal 3.7-5.1 [facility] Comment on above: Order Comment: Arben suarez Type: BLOOD SPECIMENOrdering Facility: [facility] Address: [address] [place] [address] Performed By: #### 1 751-7, 47731-5, 16351-7, 2776-08 ####[facility] LABORATORYCLIA [id number] [place] [address] [place] Sodium [Moles/Vol] 141 mmol/L Normal 136-144 [facility] Comment on above: Order Comment: Speci men Type: BLOOD SPECIMENOrdering Facility: [facility] Address: [place] [address] Performed By: #### 1 751-7, 06902-8, 67099-4, 2776-1 ####[facility]ORATORYCLIA [id number] [place] [address] [place] Urea nitrogen [Mass/Vol] 25 mg/dL High 9-24 [facility] Comment on above: Order Comment: Speci men Type: BLOOD SPECIMENOrdering Facility: [facility] Address: [place] [address] Performed By: #### 1 751-7, 24479-1, , 2776- ####[facility] LABORATORYCLIA [id number] [place] [address] [facility] CASE MANAGEMon 09-05-2023 CASE MANAGEM Normal [facility] CASE MANAGEM Normal [facility] CASE MANAGEM Normal [facility] CASE MANAGEM Normal [facility] Magnesium [Mass/Vol] 2.2 mg/dL Normal 1.7-2.3 [facility] Comment on above: Order Comment: Speci men Type: BLOOD SPECIMENOrdering Facility: [facility] Address: [place] [address] Performed By: #### 1 751-7, 00121-4, , 2776-08 ####[facility] LABORATORYCLIA [id number] [place] [address] [facility] [place] NUTRITIONon 09-05-2023 NUTRITION Normal [facility] Phosphate SerPl-mCncon 09-05 Phosphate [Mass/Vol] 4.6 mg/dL Normal 2.7-4.8 [facility] Comment on above: Order Comment: Speci men Type: BLOOD SPECIMENOrdering Facility: [facility] Address: [place] [address] Performed By: #### 1 751-7, 96496-4, , 2776-08 ####[facility] LABORATORYCLIA [id number] [place] [address] [place] Albumin SerPl-mCncon 024 Albumin [Mass/Vol] 2.4 g/dL Low 3.9-4.9 [facility] Comment on above: Order Comment: Speci men Type: BLOOD SPECIMENOrdering Facility: [facility] Address: [address] [place] [address] Performed By: #### 1 751-7, 63240-4, , 2776-08 ####[facility] LABORATORYCLIA [id number] [place] [address] [place] Basic metabolic 2000 panelon 09-04-2023 Anion gap [Moles/Vol] 6 mmol/L Low 9-18 [facility] Comment on above: Order Comment: Speci men Type: BLOOD SPECIMENOrdering Facility: [facility] Address: [address] [place] [address] Performed By: #### 1 751-7, 57541-7, , 2776-08 ####[facility] LABORATORYCLIA [id number] [place] [address] [place] Calcium [Mass/Vol] 8.0 mg/dL Low 8.5-10.2 [facility] Comment on above: Order Comment: Speci men Type: BLOOD SPECIMENOrdering Facility: [facility] Address: [address] [place] [address] Performed By: #### 1 751-7, 58131-4, , 2776-08 ####[facility] LABORATORYCLIA [id number] [place] [address] [place] Chloride [Moles/Vol] 103 mmol/L Normal 97-105 [facility] Comment on above: Order Comment: Speci men Type: BLOOD SPECIMENOrdering Facility: [facility] Address: [address] [place] [address] Performed By: #### 1 751-7, 46590-6, 68770-5, 2776-08 ####[facility] LABORATORYCLIA [id number] [place] [address] [place] CO2 [Moles/Vol] 30 mmol/L Normal 22-30 [facility] Comment on above: Order Comment: Speci men Type: BLOOD SPECIMENOrdering Facility: [facility] Address: [address] [place] [address] Performed By: #### 1 751-7, 01012-9, , 2776-08 ####[facility] LABORATORYCLIA [id number] [place] [address] [place] Creatinine [Mass/Vol] 0.80 mg/dL Normal 0.73-1.22 [facility] Comment on above: Order Comment: Speci men Type: BLOOD SPECIMENOrdering Facility: [facility] Address: [address] [place] [address] Performed By: #### 1 751-7, 94790-2, , 2776-08 ####[facility] LABORATORYCLIA [id number] [place] [address] [place] Creatinine and Glomerular filtration rate.predicted panel (S/P/Bld) 96 mL/min/1.73m??? Normal >=60 [facility] Comment on above: Order Comment: Speci men Type: BLOOD SPECIMENOrdering Facility: [facility] Address: [address] [place] [address] Result Comment: Bailey mated Glomerular Filtration Rate [...] actual GFR. Performed By: #### 1 751-7, 99769-8, 27449-6, 2776- ####[facility] LABORATORYCLIA [id number] [place] [address] [place] Glucose [Mass/Vol] 109 mg/dL High 74-99 [facility] Comment on above: Order Comment: Speci men Type: BLOOD SPECIMENOrdering Facility: [facility] Address: [place] [address] Result Comment: The [place] Diabetes [employer] (ADA) provides guidance for cutoff [...] Standards of Medical Care in Diabetes 2016, [place] [employer]. Diabetes Care. 2016.39(Suppl 1). Performed By: #### 1 751-7, 68538-3, , 2776-08 ####[facility] LABORATORYCLIA [id number] [place] [address] [place] Potassium [Moles/Vol] 4.3 mmol/L Normal 3.7-5.1 [facility] Comment on above: Order Comment: Arben daniela Type: BLOOD SPECIMENOrdering Facility: [facility] Address: [place] [address] Performed By: #### 1 751-7, 76912-3, , 2776-08 ####[facility] LABORATORYCLIA [id number] [place] [address] [place] Sodium [Moles/Vol] 139 mmol/L Normal 136-144 [facility] Comment on above: Order Comment: Speci men Type: BLOOD SPECIMENOrdering Facility: [facility] Address: [address] [place] [address] Performed By: #### 1 751-7, 81232-3, , 2776-08 ####[facility] LABORATORYCLIA [id number] [place] [address] [place] Urea nitrogen [Mass/Vol] 21 mg/dL Normal 9-24 [facility] Comment on above: Order Comment: Speci men Type: BLOOD SPECIMENOrdering Facility: [facility] Address: [place] [address] Performed By: #### 1 751-7, 98908-7, , 2776-08 ####[facility] LABORATORYCLIA [id number] [place] [address] [place] CASE MANAGEMon 09-04-2023 CASE MANAGEM Normal [facility] Magnesium SerPl-mCncon 09-04 Magnesium [Mass/Vol] 2.1 mg/dL Normal 1.7-2.3 [facility] Comment on above: Order Comment: Speci men Type: BLOOD SPECIMENOrdering Facility: [facility] Address: [place] [address] Performed By: #### 1 751-7, 90334-3, , 2776-08 ####[facility] LABORATORYCLIA [id number] [place] [address] [place] NUTRITIONon 09-04-2023 NUTRITION Normal [facility] Phosphate SerPl-mCncon 09-04 Phosphate [Mass/Vol] 3.6 mg/dL Normal 2.7-4.8 [facility] Comment on above: Order Comment: Speci men Type: BLOOD SPECIMENOrdering Facility: [facility] Address: [place] [address] Performed By: #### 1 751-7, 08000-0, , 2776-08 ####[facility] LABORATORYCLIA [id number] [place] [address] [place] Albumin SerPl-mCncon 024 Albumin [Mass/Vol] 2.7 g/dL Low 3.9-4.9 [facility] Comment on above: Order Comment: Speci men Type: BLOOD SPECIMENOrdering Facility: [facility] Address: [place] [address] Performed By: #### 1 751-7, 91659-0, , 2776-08 ####[facility] LABORATORYCLIA [id number] [place] [address] [place] Basic metabolic 2000 panelon 09-03-2023 Anion gap [Moles/Vol] 9 mmol/L Normal 9-18 [facility] Comment on above: Order Comment: Speci men Type: BLOOD SPECIMENOrdering Facility: [facility] Address: [address] [place] [address] Performed By: #### 1 751-7, 46771-3, , 2776-08 ####[facility] LABORATORYCLIA [id number] [place] [address] [place] Calcium [Mass/Vol] 8.1 mg/dL Low 8.5-10.2 [facility] Comment on above: Order Comment: Speci men Type: BLOOD SPECIMENOrdering Facility: [facility] Address: [address] [place] [address] Performed By: #### 1 751-7, 03455-0, , 2776-08 ####[facility] LABORATORYCLIA [id number] [place] [address] [place] Chloride [Moles/Vol] 97 mmol/L Normal 97-105 [facility] Comment on above: Order Comment: Speci men Type: BLOOD SPECIMENOrdering Facility: [facility] Address: [address] [place] [address] Performed By: #### 1 751-7, 88402-1, , 2776-08 ####[facility] LABORATORYCLIA [id number] [place] [address] [place] CO2 [Moles/Vol] 31 mmol/L High 22-30 [facility] Comment on above: Order Comment: Speci men Type: BLOOD SPECIMENOrdering Facility: [facility] Address: [address] [place] [address] Performed By: #### 1 751-7, 74072-1, , 2776- ####[facility] LABORATORYCLIA [id number] [place] [address] [place] Creatinine [Mass/Vol] 0.84 mg/dL Normal 0.73-1.22 [facility] Comment on above: Order Comment: Arben suarez Type: BLOOD SPECIMENOrdering Facility: [facility] Address: [address] [place] [address] Performed By: #### 1 751-7, 27870-7, 89267-9, 2776- ####[place] LABORATORYCLIA [id number] [place] [address] [place] Creatinine and Glomerular filtration rate.predicted panel (S/P/Bld) 95 mL/min/1.73m??? Normal >=60 [facility] Comment on above: Order Comment: Arben suarez Type: BLOOD SPECIMENOrdering Facility: [facility] Address: [address] [place] [address] Result Comment: Bailey mated Glomerular Filtration Rate [...] actual GFR. Performed By: #### 1 751-7, 53359-9, , 2776-08 ####[place] LABORATORYCLIA [id number] [place] [address] [place] Glucose [Mass/Vol] 91 mg/dL Normal 74-99 [facility] Comment on above: Order Comment: Arben suarez Type: BLOOD SPECIMENOrdering Facility: [facility] Address: [address] [place] [address] Result Comment: The [place] Diabetes [employer] (ADA) provides guidance for cutoff [...] Standards of Medical Care in Diabetes 2016, [place] [employer]. Diabetes Care. 2016.39(Suppl 1). Performed By: #### 1 751-7, 45985-6, , 2776-08 ####[facility] LABORATORYCLIA [id number] [place] [address] [place] Potassium [Moles/Vol] 4.1 mmol/L Normal 3.7-5.1 [facility] Comment on above: Order Comment: Arben suarez Type: BLOOD SPECIMENOrdering Facility: [facility] Address: [address] [place] [address] Performed By: #### 1 751-7, 64982-4, , 2776-08 ####[place] LABORATORYCLIA [id number] [place] [address] [place] Sodium [Moles/Vol] 137 mmol/L Normal 136-144 [facility] Comment on above: Order Comment: Arben suarez Type: BLOOD SPECIMENOrdering Facility: [facility] Address: [address] [place] [address] Performed By: #### 1 751-7, 50719-0, , 2776-08 ####[place] LABORATORYCLIA [id number] [place] [address] [place] Urea nitrogen [Mass/Vol] 21 mg/dL Normal 9-24 [facility] Comment on above: Order Comment: Arben suarez Type: BLOOD SPECIMENOrdering Facility: [facility] Address: [address] [place] [address] Performed By: #### 1 751-7, 46394-7, , 2776-08 ####[place] LABORATORYCLIA [id number] [place] [address] [place] CASE MANAGEMon 09-03-2023 CASE MANAGEM Normal [facility] Magnesium SerPl-mCncon 09-03 Magnesium [Mass/Vol] 2.0 mg/dL Normal 1.7-2.3 [facility] Comment on above: Order Comment: Speci men Type: BLOOD SPECIMENOrdering Facility: [facility] Address: [place] [address] Performed By: #### 1 751-7, 14927-3, , 2776-1 ####[facility] LABORATORYCLIA [id number] [place] [address] [facility] NUTRITIONon 09-03-2023 NUTRITION Normal [facility] Phosphate SerPl-[facility] 09[facility]03 Phosphate [Mass/Vol] 3.7 mg/dL Normal 2.7-4.8 [facility] Comment on above: Order Comment: Speci men Type: BLOOD SPECIMENOrdering Facility: [facility] Address: [address] [facility] [address] Performed By: #### 1 751-7, 78752-0, , 2776-08 ####[facility] LABORATORYCLIA [id number] [place] [address] [facility] [place] ALLIED HEALTHon 09-02-2023 ALLIED HEALTH Normal [facility] Albumin [facility] 024 Albumin [Mass/Vol] 2.8 g/dL Low 3.9-4.9 [facility] Comment on above: Order Comment: Speci men Type: BLOOD SPECIMENOrdering Facility: [facility] Address: [place] [address] Performed By: #### 1 751-7, 81017-8, , 8 ####[facility] LABORATORYCLIA [id number] [place] [address] [facility] [place] Basic metabolic 2000 panelon 09-02-2023 Anion gap [Moles/Vol] 6 mmol/L Low 9-18 [facility] Comment on above: Order Comment: Speci men Type: BLOOD SPECIMENOrdering Facility: [facility] Address: [place] [address] Performed By: #### 1 751-7, 32241-8, , 8 ####[facility] LABORATORYCLIA [id number] [place] [address] [place] Calcium [Mass/Vol] 8.3 mg/dL Low 8.5-10.2 [facility] Comment on above: Order Comment: Speci men Type: BLOOD SPECIMENOrdering Facility: [facility] Address: [place] [address] Performed By: #### 1 751-7, 27761-3, 90973-8, 8 ####[place] [facility]ORATORYCLIA [id number] [place] [address] [place] Chloride [Moles/Vol] 100 mmol/L Normal 97-105 [facility] Comment on above: Order Comment: Speci men Type: BLOOD SPECIMENOrdering Facility: [facility] Address: [place] [address] Performed By: #### 1 751-7, 16833-1, , 2571-03 ####[place] LABORATORYCLIA [id number] [place] [address] [place] CO2 [Moles/Vol] 34 mmol/L High 22-30 [facility] Comment on above: Order Comment: Speci men Type: BLOOD SPECIMENOrdering Facility: [facility] Address: [place] [address] Performed By: #### 1 751-7, 13030-2, , 2571-03 ####[place] LABORATORYCLIA [id number] [place] [address] [place] Creatinine [Mass/Vol] 0.88 mg/dL Normal 0.73-1.22 [facility] Comment on above: Order Comment: Speci men Type: BLOOD SPECIMENOrdering Facility: [facility] Address: [place] [address] Performed By: #### 1 751-7, 26880-5, , 2571-03 ####[place] LABORATORYCLIA [id number] [place] [address] [place] Creatinine and Glomerular filtration rate.predicted panel (S/P/Bld) 94 mL/min/1.73m??? Normal >=60 [facility] Comment on above: Order Comment: Arben suarez Type: BLOOD SPECIMENOrdering Facility: [facility] Address: [address] [place] [address] Result Comment: Bailey mated Glomerular Filtration Rate [...] actual GFR. Performed By: #### 1 751-7, 45525-7, 65876-0, 2571-03 ####[facility] LABORATORYCLIA [id number] [place] [address] [place] Glucose [Mass/Vol] 95 mg/dL Normal 74-99 [facility] Comment on above: Order Comment: Arben suarez Type: BLOOD SPECIMENOrdering Facility: [facility] Address: [address] [place] [address] Result Comment: The [place] [employer] (ADA) provides guidance for cutoff [...] Standards of Medical Care in Diabetes 2016, [place] [employer]. Diabetes Care. 2016.39(Suppl 1). Performed By: #### 1 751-7, 06191-5, , 2571-03 ####[place] LABORATORYCLIA [id number] [place] [address] [place] Potassium [Moles/Vol] 3.4 mmol/L Low 3.7-5.1 [facility] Comment on above: Order Comment: Arben suarez Type: BLOOD SPECIMENOrdering Facility: [facility] Address: [address] [place] [address] Performed By: #### 1 751-7, 21665-6, , 2571-03 ####[facility] LABORATORYCLIA [id number] [place] [id number] [place] Sodium [Moles/Vol] 140 mmol/L Normal 136-144 [facility] Comment on above: Order Comment: Speci men Type: BLOOD SPECIMENOrdering Facility: [facility] Address: [address] [place] [address] Performed By: #### 1 751-7, 42551-8, , 2571-03 ####[facility] LABORATORYCLIA [id number] [place] [address] [place] Urea nitrogen [Mass/Vol] 24 mg/dL Normal 9-24 [facility] Comment on above: Order Comment: Speci men Type: BLOOD SPECIMENOrdering Facility: [facility] Address: [address] [place] [address] Performed By: #### 1 751-7, 34953-3, , 2571-03 ####[facility] LABORATORYCLIA [id number] [place] [id number] [place] CBC panel Auto (Bld)on 09-02 Erythrocyte distribution width (RBC) [Ratio] 12.4 % Normal 11.5-15.0 [facility] Comment on above: Order Comment: Speci men Type: BLOOD SPECIMENOrdering Facility: [facility] Address: [address] [place] [address] Performed By: #### 5 8410-2 ####[facility] LABORATORYCLIA [id number] [place] [id number] [place] Hematocrit (Bld) [Volume fraction] 29.2 % Low 39.0-51.0 [facility] Comment on above: Order Comment: Speci men Type: BLOOD SPECIMENOrdering Facility: [facility] Address: [address] [place] [address] Performed By: #### 5 8410-2 ####[facility] LABORATORYCLIA [id number] [place] [address] [place] Hemoglobin (Bld) [Mass/Vol] 9.8 g/dL Low 13.0-17.0 [facility] Comment on above: Order Comment: Speci men Type: BLOOD SPECIMENOrdering Facility: [facility] Address: [address] [place] [address] Performed By: #### 5 8410-2 ####[facility] LABORATORYCLIA [id number] [place] [address] [place] MCH (RBC) [Entitic mass] 29.3 pg Normal 26.0-34.0 [facility] Comment on above: Order Comment: Speci men Type: BLOOD SPECIMENOrdering Facility: [facility] Address: [address] [place] [address] Performed By: #### 5 8410-2 ####[facility] LABORATORYCLIA [id number] [address] [place] MCHC (RBC) [Mass/Vol] 33.6 g/dL Normal 30.5-36.0 [facility] Comment on above: Order Comment: Speci men Type: BLOOD SPECIMENOrdering Facility: [facility] Address: [address] [place] [address] Performed By: #### 5 8410-2 ####[facility] LABORATORYCLIA [id number] [address] [place] MCV (RBC) [Entitic vol] 87.4 fL Normal 80.0-100.0 [facility] Comment on above: Order Comment: Speci men Type: BLOOD SPECIMENOrdering Facility: [facility] Address: [address] [place] [address] Performed By: #### 5 8410-2 ####[facility] LABORATORYCLIA [id number] [address] [place] Nucleated RBC (Bld) [#/Vol] 10*3/uL Normal <0.01 [facility] Comment on above: Order Comment: Speci men Type: BLOOD SPECIMENOrdering Facility: [facility] Address: [address] [place] [address] Performed By: #### 5 8410-2 ####[place] LABORATORYCLIA [id number] [place] [address] [place] Platelet mean volume (Bld) [Entitic vol] 11.2 fL Normal 9.0-12.7 [facility] Comment on above: Order Comment: Speci men Type: BLOOD SPECIMENOrdering Facility: [facility] Address: [address] [place] [address] Performed By: #### 5 8410-2 ####[place] LABORATORYCLIA [id number] [place] [address] [place] Platelets (Bld) [#/Vol] 229 10*3/uL Normal 150-400 [facility] Comment on above: Order Comment: Speci men Type: BLOOD SPECIMENOrdering Facility: [facility] Address: [address] [place] [address] Performed By: #### 5 8410-2 ####[place] LABORATORYCLIA [id number] [place] [address] [place] RBC (Bld) [#/Vol] 3.34 10*6/uL Low 4.20-6.00 [facility] Comment on above: Order Comment: Speci men Type: BLOOD SPECIMENOrdering Facility: [facility] Address: [address] [place] [address] Performed By: #### 5 8410-2 ####[place] LABORATORYCLIA [id number] [place] [address] [place] WBC (Bld) [#/Vol] 5.51 10*3/uL Normal 3.70-11.00 [facility] Comment on above: Order Comment: Speci men Type: BLOOD SPECIMENOrdering Facility: [facility] Address: [address] [place] [address] Performed By: #### 5 8410-2 ####[place] LABORATORYCLIA [id number] [place] [address] [place] PANCREAS W IVCONon 2023 CT PANCREAS W IVCON Normal [facility] Magnesium SerPl-mCncon 09-02 Magnesium [Mass/Vol] 1.9 mg/dL Normal 1.7-2.3 [facility] Comment on above: Order Comment: Speci men Type: BLOOD SPECIMENOrdering Facility: [facility] Address: [address] [place] [address] Performed By: #### 1 751-7, 16816-4, , 2571-03 ####[facility] LABORATORYCLIA [id number] [place] [address] [place] NUTRITIONon 09-02-2023 NUTRITION Normal [facility] Phosphate SerPl-mCncon 09-02 Phosphate [Mass/Vol] 2.5 mg/dL Low 2.7-4.8 [facility] Comment on above: Order Comment: Speci men Type: BLOOD SPECIMENOrdering Facility: [facility] Address: [address] [place] [address] Performed By: #### 2 777-1 ####[facility] LABORATORYCLIA [id number] [address] Trigl SerPl-mCncon Triglyceride [Mass/Vol] 70 mg/dL Normal <150 [facility] Comment on above: Order Comment: Speci men Type: BLOOD SPECIMENOrdering Facility: [facility] Address: [address] [place] [address] Result Comment: <150 mg/dL, Normal 150-199 mg/dL, Borderline high 200-499 mg/dL, High>499 mg/dL, Very highReference:1. National Cholesterol Education Program ATP III Guideline At-A-Glance Quick Desk Reference: National Heart, Lung, and Blood [place]. National Institutes of Health. 2001: NIH Publication No. 01-3305. Performed By: #### 1 751-7, 27831-8, , 2571-03 ####[facility] LABORATORYCLIA [id number] [place] [address] [place] Triglyceride [Mass/Vol]on FASTING TIME n/a Normal [facility] Comment on above: Order Comment: Speci men Type: BLOOD SPECIMENOrdering Facility: [facility] Address: [address] [place] [address] Performed By: #### 1 751-7, 22890-6, 40344-5, 2571-8 ####[facility] LABORATORYCLIA [id number] [place] [address] [place] Basic metabolic 2000 panelon 09-01-2023 Anion gap [Moles/Vol] 10 mmol/L Normal 9-18 [facility] Comment on above: Order Comment: Speci men Type: BLOOD SPECIMENOrdering Facility: [facility] Address: [address] [place] [address] Performed By: #### 1 9123-9, 66324-4, 2777-1, 77782-6 ####[facility] LABORATORYCLIA [id number] [place] [address] [place] Calcium [Mass/Vol] 8.4 mg/dL Low 8.5-10.2 [facility] Comment on above: Order Comment: Speci men Type: BLOOD SPECIMENOrdering Facility: [facility] Address: [address] [place] [address] Performed By: #### 1 9123-9, 54417-9, 2777-1, 68309-2 ####[facility] LABORATORYCLIA [id number] [place] [address] [place] Chloride [Moles/Vol] 102 mmol/L Normal 97-105 [facility] Comment on above: Order Comment: Speci men Type: BLOOD SPECIMENOrdering Facility: [facility] Address: [address] [place] [address] Performed By: #### 1 9123-9, 45100-6, 277-1, 02634-9 ####[facility] LABORATORYCLIA [id number] [place] [address] [place] CO2 [Moles/Vol] 29 mmol/L Normal 22-30 [facility] Comment on above: Order Comment: Speci men Type: BLOOD SPECIMENOrdering Facility: [facility] Address: [address] [place] [address] Performed By: #### 1 9123-9, 21342-5, 2777-1, 62493-8 ####[place] LABORATORYCLIA [id number] [place] [address] [place] Creatinine [Mass/Vol] 0.93 mg/dL Normal 0.73-1.22 [facility] Comment on above: Order Comment: Arben suarez Type: BLOOD SPECIMENOrdering Facility: [facility] Address: [address] [place] [address] Performed By: #### 1 9123-9, 34813-7, 2777-1, 06473-3 ####[place] LABORATORYCLIA [id number] [place] [address] [place] Creatinine and Glomerular filtration rate.predicted panel (S/P/Bld) 89 mL/min/1.73m??? Normal >=60 [facility] Comment on above: Order Comment: Type: BLOOD SPECIMENOrdering Facility: [facility] Address: [address] [place] [address] Result Comment: Bailey mated Glomerular Filtration Rate [...] actual GFR. Performed By: #### 1 9123-9, 33311-4, 2777-1, 99845-1 ####[place] LABORATORYCLIA [id number] [place] [address] [place] Glucose [Mass/Vol] 110 mg/dL High 74-99 [facility] Comment on above: Order Comment: Speci daniela Type: BLOOD SPECIMENOrdering Facility: [facility] Address: [address] [place] [address] Result Comment: The [place] [employer] (ADA) provides guidance for cutoff [...] Standards of Medical Care in Diabetes 2016, [place] [employer]. Diabetes Care. 2016.39(Suppl 1). Performed By: #### 1 9123-9, 04582-1, 277-, 83668-9 ####[place] LABORATORYCLIA [id number] [place] [address] [place] Potassium [Moles/Vol] 3.3 mmol/L Low 3.7-5.1 [facility] Comment on above: Order Comment: Arben suarez Type: BLOOD SPECIMENOrdering Facility: [facility] Address: [address] [place] [address] Performed By: #### 1 9123-9, 22131-7, 2776-, 92612-3 ####[place] LABORATORYCLIA [id number] [place] [address] [place] Sodium [Moles/Vol] 141 mmol/L Normal 136-144 [facility] Comment on above: Order Comment: Arben suarez Type: BLOOD SPECIMENOrdering Facility: [facility] Address: [address] [place] [address] Performed By: #### 1 9123-9, 78141-0, 2776-, 14845-1 ####[place] LABORATORYCLIA [id number] [place] [address] [place] Urea nitrogen [Mass/Vol] 27 mg/dL High 9-24 [facility] Comment on above: Order Comment: Arben suarez Type: BLOOD SPECIMENOrdering Facility: [facility] Address: [address] [place] [address] Performed By: #### 1 9123-9, 48427-7, 2776-, 55417-0 ####[place] LABORATORYCLIA [id number] [place] [address] [place] CBC W Auto Differential pane l (Bld)on 09-01-2023 Basophils (Bld) [#/Vol] 0.04 10*3/uL Normal <0.11 [facility] Comment on above: Order Comment: Speci men Type: BLOOD SPECIMENOrdering Facility: [facility] Address: [address] [place] [address] Performed By: #### 5 7021-8 ####[facility] LABORATORYCLIA [id number] [place] [address] [place] Basophils/100 WBC (Bld) 0.8 % Normal [facility] Comment on above: Order Comment: Speci men Type: BLOOD SPECIMENOrdering Facility: [facility] Address: [address] [place] [address] Performed By: #### 5 7021-8 ####[facility] LABORATORYCLIA [id number] [address] [place] Differential cell count method Nom (Bld) Auto Normal [facility] Comment on above: Order Comment: Speci men Type: BLOOD SPECIMENOrdering Facility: [facility] Address: [address] [place] [address] Performed By: #### 5 7021-8 ####[facility] LABORATORYCLIA [id number] [place] [address] [place] Eosinophils (Bld) [#/Vol] 0.17 10*3/uL Normal <0.46 [facility] Comment on above: Order Comment: Speci men Type: BLOOD SPECIMENOrdering Facility: [facility] Address: [address] [place] [address] Performed By: #### 5 7021-8 ####[facility] LABORATORYCLIA [id number] [place] [address] [place] Eosinophils/100 WBC (Bld) 3.5 % Normal [facility] Comment on above: Order Comment: Speci men Type: BLOOD SPECIMENOrdering Facility: [facility] Address: [address] [place] [address] Performed By: #### 5 7021-8 ####[facility] LABORATORYCLIA [id number] [place] [address] [place] Erythrocyte distribution width (RBC) [Ratio] 12.5 % Normal 11.5-15.0 [facility] Comment on above: Order Comment: Speci men Type: BLOOD SPECIMENOrdering Facility: [facility] Address: [address] [place] [address] Performed By: #### 5 7021-8 ####[facility] LABORATORYCLIA [id number] [place] [address] [place] Hematocrit (Bld) [Volume fraction] 28.8 % Low 39.0-51.0 [facility] Comment on above: Order Comment: Speci men Type: BLOOD SPECIMENOrdering Facility: [facility] Address: [address] [place] [address] Performed By: #### 5 7021-8 ####[facility] LABORATORYCLIA [id number] [address] [place] Hemoglobin (Bld) [Mass/Vol] 9.9 g/dL Low 13.0-17.0 [facility] Comment on above: Order Comment: Speci men Type: BLOOD SPECIMENOrdering Facility: [facility] Address: [address] [place] [address] Performed By: #### 5 7021-8 ####[facility] LABORATORYCLIA [id number] [address] [place] Immature granulocytes (Bld) [#/Vol] 10*3/uL Normal <0.10 [facility] Comment on above: Order Comment: Speci men Type: BLOOD SPECIMENOrdering Facility: [facility] Address: [address] [place] [address] Performed By: #### 5 7021-8 ####[facility] LABORATORYCLIA [id number] [address] [place] Immature granulocytes/100 WBC (Bld) 0.4 % Normal [facility] Comment on above: Order Comment: Speci men Type: BLOOD SPECIMENOrdering Facility: [facility] Address: [address] [place] [address] Performed By: #### 5 7021-8 ####[facility] LABORATORYCLIA [id number] [place] [address] [place] Lymphocytes (Bld) [#/Vol] 1.10 10*3/uL Normal 1.00-4.00 [facility] Comment on above: Order Comment: Speci men Type: BLOOD SPECIMENOrdering Facility: [facility] Address: [address] [place] [address] Performed By: #### 5 7021-8 ####[facility] LABORATORYCLIA [id number] [place] [address] [place] Lymphocytes/100 WBC (Bld) 22.7 % Normal [facility] Comment on above: Order Comment: Speci men Type: BLOOD SPECIMENOrdering Facility: [facility] Address: [address] [place] [address] Performed By: #### 5 7021-8 ####[facility] LABORATORYCLIA [id number] [place] [address] [place] MCH (RBC) [Entitic mass] 29.6 pg Normal 26.0-34.0 [facility] Comment on above: Order Comment: Speci men Type: BLOOD SPECIMENOrdering Facility: [facility] Address: [address] [place] [address] Performed By: #### 5 7021-8 ####[facility] LABORATORYCLIA [id number] [address] [place] MCHC (RBC) [Mass/Vol] 34.4 g/dL Normal 30.5-36.0 [facility] Comment on above: Order Comment: Speci men Type: BLOOD SPECIMENOrdering Facility: [facility] Address: [address] [place] [address] Performed By: #### 5 7021-8 ####[facility] LABORATORYCLIA [id number] [address] [place] MCV (RBC) [Entitic vol] 86.0 fL Normal 80.0-100.0 [facility] Comment on above: Order Comment: Speci men Type: BLOOD SPECIMENOrdering Facility: [facility] Address: [address] [place] [address] Performed By: #### 5 7021-8 ####[facility] LABORATORYCLIA [id number] [place] [address] [place] Monocytes (Bld) [#/Vol] 0.86 10*3/uL Normal <0.87 [facility] Comment on above: Order Comment: Speci men Type: BLOOD SPECIMENOrdering Facility: [facility] Address: [address] [place] [address] Performed By: #### 5 7021-8 ####[facility] LABORATORYCLIA [id number] [place] [address] [place] Monocytes/100 WBC (Bld) 17.8 % Normal [facility] Comment on above: Order Comment: Speci men Type: BLOOD SPECIMENOrdering Facility: [facility] Address: [address] [place] [address] Performed By: #### 5 7021-8 ####[facility] LABORATORYCLIA [id number] [place] [address] [place] Neutrophils (Bld) [#/Vol] 2.65 10*3/uL Normal 1.45-7.50 [facility] Comment on above: Order Comment: Speci men Type: BLOOD SPECIMENOrdering Facility: [facility] Address: [address] [place] [address] Performed By: #### 5 7021-8 ####[facility] LABORATORYCLIA [id number] [place] [address] [place] Neutrophils/100 WBC (Bld) 54.8 % Normal [facility] Comment on above: Order Comment: Speci men Type: BLOOD SPECIMENOrdering Facility: [facility] Address: [address] [place] [address] Performed By: #### 5 7021-8 ####[facility] LABORATORYCLIA [id number] [place] [address] [place] Nucleated RBC (Bld) [#/Vol] 10*3/uL Normal <0.01 [facility] Comment on above: Order Comment: Speci men Type: BLOOD SPECIMENOrdering Facility: [facility] Address: [address] [place] [address] Performed By: #### 5 7021-8 ####[facility] LABORATORYCLIA [id number] [place] [address] [place] Nucleated RBC/100 WBC (Bld) [Ratio] 0.0 /100 WBC Normal [facility] Comment on above: Order Comment: Speci men Type: BLOOD SPECIMENOrdering Facility: [facility] Address: [address] [place] [address] Performed By: #### 5 7021-8 ####[facility] LABORATORYCLIA [id number] [place] [id number] [place] Platelet mean volume (Bld) [Entitic vol] 11.3 fL Normal 9.0-12.7 [facility] Comment on above: Order Comment: Speci men Type: BLOOD SPECIMENOrdering Facility: [facility] Address: [address] [place] [address] Performed By: #### 5 7021-8 ####[facility] LABORATORYCLIA [id number] [place] [address] [place] Platelets (Bld) [#/Vol] 238 10*3/uL Normal 150-400 [facility] Comment on above: Order Comment: Speci men Type: BLOOD SPECIMENOrdering Facility: [facility] Address: [address] [place] [address] Performed By: #### 5 7021-8 ####[facility] LABORATORYCLIA [id number] [place] [id number] [place] RBC (Bld) [#/Vol] 3.35 10*6/uL Low 4.20-6.00 [facility] Comment on above: Order Comment: Speci men Type: BLOOD SPECIMENOrdering Facility: [facility] Address: [address] [place] [address] Performed By: #### 5 7021-8 ####[facility] LABORATORYCLIA [id number] [place] [id number] [place] WBC (Bld) [#/Vol] 4.84 10*3/uL Normal 3.70-11.00 [facility] Comment on above: Order Comment: Speci men Type: BLOOD SPECIMENOrdering Facility: [facility] Address: [address] [place] [address] Performed By: #### 5 7021-8 ####[facility] LABORATORYCLIA [id number] [place] [id number] [place] [facility] Hepatic function 2000 panelo n 09-01-2023 Albumin [Mass/Vol] 2.8 g/dL Low 3.9-4.9 [facility] Comment on above: Order Comment: Speci men Type: BLOOD SPECIMENOrdering Facility: [facility] Address: [address] [place] [address] Performed By: #### 1 9123-9, 65473-3, 2777-1, 59561-8 ####[facility] LABORATORYCLIA [id number] [address] [place] ALP [Catalytic activity/Vol] 107 U/L Normal 38-113 [facility] Comment on above: Order Comment: Speci men Type: BLOOD SPECIMENOrdering Facility: [facility] Address: [address] [place] [address] Performed By: #### 1 9123-9, 97397-6, 2777-1, 06593-2 ####[facility] LABORATORYCLIA [id number] [address] [place] ALT [Catalytic activity/Vol] 21 U/L Normal 10-54 [facility] Comment on above: Order Comment: Speci men Type: BLOOD SPECIMENOrdering Facility: [facility] Address: [address] [place] [address] Performed By: #### 1 9123-9, 85795-3, 2777-1, 19721-5 ####[facility] LABORATORYCLIA [id number] [place] [id number] [place] AST [Catalytic activity/Vol] 14 U/L Normal 14-40 [facility] Comment on above: Order Comment: Speci men Type: BLOOD SPECIMENOrdering Facility: [facility] Address: [address] [place] [address] Performed By: #### 1 9123-9, 17570-9, 2777-1, 49675-1 ####[facility] LABORATORYCLIA [id number] [place] [address] [place] Bilirubin [Mass/Vol] 0.4 mg/dL Normal 0.2-1.3 [facility] Comment on above: Order Comment: Speci men Type: BLOOD SPECIMENOrdering Facility: [facility] Address: [address] [place] [address] Performed By: #### 1 9123-9, 86900-5, 2777-1, 54885-1 ####[place] [facility]ORATORYCLIA [id number] [place] [address] [place] Bilirubin.conjugated [Mass/Vol] mg/dL Normal <0.2 [facility] Comment on above: Order Comment: Speci men Type: BLOOD SPECIMENOrdering Facility: [facility] Address: [address] [place] [address] Performed By: #### 1 9123-9, 42487-5, 277-, 05540-1 ####[place] LABORATORYCLIA [id number] [place] [address] [place] Protein [Mass/Vol] 5.4 g/dL Low 6.3-8.0 [facility] Comment on above: Order Comment: Speci men Type: BLOOD SPECIMENOrdering Facility: [facility] Address: [address] [place] [address] Performed By: #### 1 9123-9, 07099-7, 2777-1, 47953-9 ####[facility]ORYCL[facility] [id number] [place] [id number] [place] Magnesium SerPl-mCncon 09-01 Magnesium [Mass/Vol] 1.8 mg/dL Normal 1.7-2.3 [facility] Comment on above: Order Comment: Speci men Type: BLOOD SPECIMENOrdering Facility: [facility] Address: [address] [place] [address] Performed By: #### 1 9123-9, 90267-5, 2777-1, 97425-9 ####[facility]ORATORYCLIA [id number] [place] [id number] [place] NURSING PROGon 09-01-2023 NURSING PROG Normal [facility] NUTRITIONon 09-01-2023 NUTRITION Normal [facility] Phosphate SerPl-mCncon 09-01 Phosphate [Mass/Vol] 2.8 mg/dL Normal 2.7-4.8 [facility] Comment on above: Order Comment: Speci men Type: BLOOD SPECIMENOrdering Facility: [facility] Address: [place] [address] Performed By: #### 1 9123-9, 98998-2, 2777-1, 50949-4 ####[facility] LABORATORYCLIA [id number] [place] [id number] [facility] Albumin SerPl-ncon 024 Albumin [Mass/Vol] 2.9 g/dL Low 3.9-4.9 [facility] Comment on above: Order Comment: Speci men Type: BLOOD SPECIMENOrdering Facility: [facility] Address: [place] [address] Performed By: #### 2 777-1, 39932-5, 1750-7, 75072-8 ####[facility] LABORATORYCLIA [id number] [place] [id number] [place] Basic metabolic 2000 panelon 08-31-2023 Anion gap [Moles/Vol] 10 mmol/L Normal 9-18 [facility] Comment on above: Order Comment: Speci men Type: BLOOD SPECIMENOrdering Facility: [facility] Address: [place] [address] Performed By: #### 2 777-1, 10316-9, 175-7, 43682-2 ####[facility] LABORATORYCLIA [id number] [place] [id number] [place] Calcium [Mass/Vol] 8.3 mg/dL Low 8.5-10.2 [facility] Comment on above: Order Comment: Speci men Type: BLOOD SPECIMENOrdering Facility: [facility] Address: [place] [address] Performed By: #### 2 777-1, 82195-2, 1751-02, ####[place] [facility]ORATORYCLIA [id number] [place] [address] [place] Chloride [Moles/Vol] 101 mmol/L Normal 97-105 [facility] Comment on above: Order Comment: Speci men Type: BLOOD SPECIMENOrdering Facility: [facility] Address: [address] [place] [address] Performed By: #### 2 777-1, 40178-1, 1751-02, ####[facility] LABORATORYCLIA [id number] [place] [address] [place] CO2 [Moles/Vol] 23 mmol/L Normal 22-30 [facility] Comment on above: Order Comment: Speci men Type: BLOOD SPECIMENOrdering Facility: [facility] Address: [address] [place] [address] Performed By: #### 2 777-1, 32641-8, 1751-02, ####[facility] LABORATORYCLIA [id number] [place] [id number] [place] Creatinine [Mass/Vol] 1.22 mg/dL Normal 0.73-1.22 [facility] Comment on above: Order Comment: Speci men Type: BLOOD SPECIMENOrdering Facility: [facility] Address: [address] [place] [address] Performed By: #### 2 777-1, 54562-9, 1751-02, ####[place] LABORATORYCLIA [id number] [place] [address] [place] Creatinine and Glomerular filtration rate.predicted panel (S/P/Bld) 65 mL/min/1.73m??? Normal >=60 [facility] Comment on above: Order Comment: Speci men Type: BLOOD SPECIMENOrdering Facility: [facility] Address: [address] [place] [address] Result Comment: Bailey mated Glomerular Filtration Rate [...] actual GFR. Performed By: #### 2 777-1, 91546-7, 1751-02, ####[facility] LABORATORYCLIA [id number] [place] [address] [place] Glucose [Mass/Vol] 100 mg/dL High 74-99 [facility] Comment on above: Order Comment: Arben suarez Type: BLOOD SPECIMENOrdering Facility: [facility] Address: [address] [place] [address] Result Comment: The [place] [employer] (ADA) provides guidance for cutoff [...] Standards of Medical Care in Diabetes 2016, [place] [employer]. Diabetes Care. 2016.39(Suppl 1). Performed By: #### 2 777-1, 78293-3, 1751-02, ####[facility] LABORATORYCLIA [id number] [place] [address] [place] Potassium [Moles/Vol] 3.5 mmol/L Low 3.7-5.1 [facility] Comment on above: Order Comment: Arben suarez Type: BLOOD SPECIMENOrdering Facility: [facility] Address: [address] [place] [address] Performed By: #### 2 777-1, 64381-9, 1751-02, ####[facility] LABORATORYCLIA [id number] [place] [address] [place] Sodium [Moles/Vol] 134 mmol/L Low 136-144 [facility] Comment on above: Order Comment: Speci men Type: BLOOD SPECIMENOrdering Facility: [facility] Address: [place] [address] Performed By: #### 2 777-1, 88215-8, 1751-02, ####[place] LABORATORYCLIA [id number] [place] [address] [place] Urea nitrogen [Mass/Vol] 39 mg/dL High 9-24 [facility] Comment on above: Order Comment: Speci men Type: BLOOD SPECIMENOrdering Facility: [facility] Address: [place] [address] Performed By: #### 2 777-1, 25169-5, 1751-02, ####[place] LABORATORYCLIA [id number] [place] [address] [place] CASE MANAGEMon 08-31-2023 CASE MANAGEM Normal [facility] Magnesium SerPl-mCncon 08-31 Magnesium [Mass/Vol] 1.7 mg/dL Normal 1.7-2.3 [facility] Comment on above: Order Comment: Speci men Type: BLOOD SPECIMENOrdering Facility: [facility] Address: [place] [address] Performed By: #### 2 777-1, 68515-5, 1751-02, ####[facility] [facility]ORATORYCLIA [id number] [place] [address] [place] Phosphate SerPl-mCncon 08-31 Phosphate [Mass/Vol] 2.6 mg/dL Low 2.7-4.8 [facility] Comment on above: Order Comment: Speci men Type: BLOOD SPECIMENOrdering Facility: [facility] Address: [place] [address] Performed By: #### 2 777-1, 31006-5, 1751-02, ####[place] LABORATORYCLIA [id number] [place] [id number] [place] Albumin SerPl-mCncon 024 Albumin [Mass/Vol] 3.1 g/dL Low 3.9-4.9 [facility] Comment on above: Order Comment: Speci men Type: BLOOD SPECIMENOrdering Facility: [facility] Address: [address] [place] [address] Performed By: #### 2 4321-2, 92291-7, 7, 2776- ####[facility] LABORATORYCLIA [id number] [place] [address] [place] Basic metabolic 2000 panelon 08-30-2023 Anion gap [Moles/Vol] 11 mmol/L Normal 9-18 [facility] Comment on above: Order Comment: Speci men Type: BLOOD SPECIMENOrdering Facility: [facility] Address: [address] [place] [address] Performed By: #### 2 4321-2, , 1751-02, 2776- ####[facility] LABORATORYCLIA [id number] [place] [address] [place] Calcium [Mass/Vol] 8.1 mg/dL Low 8.5-10.2 [facility] Comment on above: Order Comment: Speci men Type: BLOOD SPECIMENOrdering Facility: [facility] Address: [address] [place] [address] Performed By: #### 2 4321-2, 79927-8, 1751-02, 2776-08 ####[facility] LABORATORYCLIA [id number] [place] [address] [place] Chloride [Moles/Vol] 106 mmol/L High 97-105 [facility] Comment on above: Order Comment: Speci men Type: BLOOD SPECIMENOrdering Facility: [facility] Address: [address] [place] [address] Performed By: #### 2 4321-2, 83437-9, 1751-02, 2776-1 ####[facility] LABORATORYCLIA [id number] [place] [address] [place] CO2 [Moles/Vol] 17 mmol/L Low 22-30 [facility] Comment on above: Order Comment: Speci men Type: BLOOD SPECIMENOrdering Facility: [facility] Address: [address] [place] [address] Performed By: #### 2 4321-2, , 1751-02, 2776-08 ####[place] [facility]ORATORYCLIA [id number] [place] [address] [place] Creatinine [Mass/Vol] 1.39 mg/dL High 0.73-1.22 [facility] Comment on above: Order Comment: Speci men Type: BLOOD SPECIMENOrdering Facility: [facility] Address: [address] [place] [address] Performed By: #### 2 4321-2, , 1751-02, 2776-08 ####[place] [facility]ORATORYCLIA [id number] [place] [address] [place] Creatinine and Glomerular filtration rate.predicted panel (S/P/Bld) 55 mL/min/1.73m??? Low >=60 [facility] Comment on above: Order Comment: Speci [facility] Type: BLOOD SPECIMENOrdering Facility: [facility] Address: [address] [place] [address] Result Comment: Bialey mated Glomerular Filtration Rate (eGFR) is calculated [...] actual GFR. Performed By: #### 2 4321-2, 45632-1, 1751-02, 2776-08 ####[place] [facility]ORATORYCLIA [id number] [place] [address] [place] Glucose [Mass/Vol] 107 mg/dL High 74-99 [facility] Comment on above: Order Comment: Speci [facility] Type: BLOOD SPECIMENOrdering Facility: [facility] Address: [address] [place] [address] Result Comment: The [place] [employer] (ADA) provides guidance for cutoff [...] Standards of Medical Care in Diabetes 2016, [place] [employer]. Diabetes Care. 2016.39(Suppl 1). Performed By: #### 2 4321-2, , 1751-02, 2776-08 ####[facility] LABORATORYCLIA [id number] [place] [address] [place] Potassium [Moles/Vol] 3.6 mmol/L Low 3.7-5.1 [facility] Comment on above: Order Comment: Speci men Type: BLOOD SPECIMENOrdering Facility: [facility] Address: [address] [place] [id number] Performed By: #### 2 4321-2, , 1751-02, 2776-08 ####[place] [facility]ORATORYCLIA [id number] [place] [address] [place] Sodium [Moles/Vol] 134 mmol/L Low 136-144 [facility] Comment on above: Order Comment: Speci men Type: BLOOD SPECIMENOrdering Facility: [facility] Address: [address] [place] [address] Performed By: #### 2 4321-2, , 1751-02, 2776-08 ####[place] [facility]ORATORYCLIA [id number] [place] [address] [place] Urea nitrogen [Mass/Vol] 46 mg/dL High 9-24 [facility] Comment on above: Order Comment: Speci men Type: BLOOD SPECIMENOrdering Facility: [facility] Address: [address] [place] [address] Performed By: #### 2 4321-2, , 1751-02, 7-1 ####[facility] LABORATORYCLIA [id number] [place] [address] [place] CBC panel Auto (Bld)on 08-30 Erythrocyte distribution width (RBC) [Ratio] 12.4 % Normal 11.5-15.0 [facility] Comment on above: Order Comment: Speci men Type: BLOOD SPECIMENOrdering Facility: [facility] Address: [address] [place] [address] Performed By: #### 5 8410-2 ####[facility] LABORATORYCLIA [id number] [address] [place] Hematocrit (Bld) [Volume fraction] 32.1 % Low 39.0-51.0 [facility] Comment on above: Order Comment: Speci men Type: BLOOD SPECIMENOrdering Facility: [facility] Address: [address] [place] [address] Performed By: #### 5 8410-2 ####[facility] LABORATORYCLIA [id number] [address] [place] Hemoglobin (Bld) [Mass/Vol] 11.0 g/dL Low 13.0-17.0 [facility] Comment on above: Order Comment: Speci men Type: BLOOD SPECIMENOrdering Facility: [facility] Address: [address] [place] [address] Performed By: #### 5 8410-2 ####[facility] LABORATORYCLIA [id number] [place] [address] [place] MCH (RBC) [Entitic mass] 29.3 pg Normal 26.0-34.0 [facility] Comment on above: Order Comment: Speci men Type: BLOOD SPECIMENOrdering Facility: [facility] Address: [address] [place] [address] Performed By: #### 5 8410-2 ####[facility] LABORATORYCLIA [id number] [address] [place] MCHC (RBC) [Mass/Vol] 34.3 g/dL Normal 30.5-36.0 [facility] Comment on above: Order Comment: Speci men Type: BLOOD SPECIMENOrdering Facility: [facility] Address: [address] [place] [address] Performed By: #### 5 8410-2 ####[facility] LABORATORYCLIA [id number] [place] [address] [place] MCV (RBC) [Entitic vol] 85.6 fL Normal 80.0-100.0 [facility] Comment on above: Order Comment: Speci men Type: BLOOD SPECIMENOrdering Facility: [facility] Address: [address] [place] [address] Performed By: #### 5 8410-2 ####[facility] LABORATORYCLIA [id number] [place] [address] [place] Nucleated RBC (Bld) [#/Vol] 10*3/uL Normal <0.01 [facility] Comment on above: Order Comment: Speci men Type: BLOOD SPECIMENOrdering Facility: [facility] Address: [address] [place] [address] Performed By: #### 5 8410-2 ####[facility] LABORATORYCLIA [id number] [place] [address] [place] Platelet mean volume (Bld) [Entitic vol] 10.6 fL Normal 9.0-12.7 [facility] Comment on above: Order Comment: Speci men Type: BLOOD SPECIMENOrdering Facility: [facility] Address: [address] [place] [address] Performed By: #### 5 8410-2 ####[facility] LABORATORYCLIA [id number] [place] [id number] [place] Platelets (Bld) [#/Vol] 306 10*3/uL Normal 150-400 [facility] Comment on above: Order Comment: Speci men Type: BLOOD SPECIMENOrdering Facility: [facility] Address: [address] [place] [address] Performed By: #### 5 8410-2 ####[facility] LABORATORYCLIA [id number] [place] [id number] [place] RBC (Bld) [#/Vol] 3.75 10*6/uL Low 4.20-6.00 [facility] Comment on above: Order Comment: Speci men Type: BLOOD SPECIMENOrdering Facility: [facility] Address: [place] [address] Performed By: #### 5 8410-2 ####[place] [facility]ORATORYCLIA [id number] [place] [id number] [place] WBC (Bld) [#/Vol] 6.84 10*3/uL Normal 3.70-11.00 [facility] Comment on above: Order Comment: Speci men Type: BLOOD SPECIMENOrdering Facility: [facility] Address: [place] [address] Performed By: #### 5 8410-2 ####[place] [facility]ORATORYCLIA [id number] [place] [id number] [place] CONSULT PROGon 08-30-20[facility] Lactate (Bld) [Moles/Vol]on 08-30-2023 Lactate [Moles/Vol] 0.6 mmol/L Normal 0.5-2.2 [facility] Comment on above: Order Comment: Speci men Type: BLOOD SPECIMENOrdering Facility: [facility] Address: [place] [address] Performed By: #### 3 2693-4 ####[place] [facility]ORATORYCLIA [id number] [place] [address] [place] Magnesium SerPl-mCncon 08-30 Magnesium [Mass/Vol] 2.0 mg/dL Normal 1.7-2.3 [facility] Comment on above: Order Comment: Speci men Type: BLOOD SPECIMENOrdering Facility: [facility] Address: [place] [address] Performed By: #### 2 4321-2, 75765-6, 1751-7, 2777-1 ####[place] [facility]ORATORYCLIA [id number] [place] [id number] [place] NURSING PROGon 08-30-2023 NURSING PROG Normal [facility] NUTRITIONon 08-30-2023 NUTRITION Normal [facility] Phosphate SerPl-mCncon 08-30 Phosphate [Mass/Vol] 3.1 mg/dL Normal 2.7-4.8 [facility] Comment on above: Order Comment: Speci men Type: BLOOD SPECIMENOrdering Facility: [facility] Address: [address] [place] [address] Performed By: #### 2 4321-2, 19286-7, 1751-7, 277- ####[facility] [facility]ORATORYCLIA [id number] [place] [address] [place] Basic metabolic 2000 panelon 08-29-2023 Anion gap [Moles/Vol] 18 mmol/L Normal 9-18 [facility] Comment on above: Order Comment: Speci men Type: BLOOD SPECIMENOrdering Facility: [facility] Address: [address] [place] [address] Performed By: #### 2 4321-2, 2777-1, 88511-3, ####[place] [facility]ORATORYCLIA [id number] [place] [address] [place] Calcium [Mass/Vol] 9.0 mg/dL Normal 8.5-10.2 [facility] Comment on above: Order Comment: Speci men Type: BLOOD SPECIMENOrdering Facility: [facility] Address: [address] [place] [address] Performed By: #### 2 4321-2, 2777-1, 74923-8, ####[place] [facility]ORATORYCLIA [id number] [place] [address] [place] Chloride [Moles/Vol] 107 mmol/L High 97-105 [facility] Comment on above: Order Comment: Speci men Type: BLOOD SPECIMENOrdering Facility: [facility] Address: [address] [place] [address] Performed By: #### 2 4321-2, 2777-1, 83271-5, 80085-5 ####[place] [facility]ORATORYCLIA [id number] [place] [address] [place] CO2 [Moles/Vol] 8 mmol/L Low 22-30 [facility] Comment on above: Order Comment: Speci men Type: BLOOD SPECIMENOrdering Facility: [facility] Address: [place] [address] Performed By: #### 2 4321-2, 2777-1, 73686-5, ####[facility] [facility]ORATORYCLIA [id number] [place] [address] [place] Creatinine [Mass/Vol] 1.98 mg/dL High 0.73-1.22 [facility] Comment on above: Order Comment: Speci men Type: BLOOD SPECIMENOrdering Facility: [facility] Address: [place] [address] Performed By: #### 2 4321-2, 2777-1, 10896-3, ####[facility] [facility]ORATORYCLIA [id number] [place] [address] [place] Creatinine and Glomerular filtration rate.predicted panel (S/P/Bld) 36 mL/min/1.73m??? Low >=60 [facility] Comment on above: Order Comment: Speci men Type: BLOOD SPECIMENOrdering Facility: [facility] Address: [place] [address] Result Comment: Bailey mated Glomerular Filtration Rate [...] GFR. Performed By: #### 2 4321-2, 2777-1, 78548-2, ####[place] [facility]ORATORYCLIA [id number] [place] [address] [place] Glucose [Mass/Vol] 134 mg/dL High 74-99 [facility] Comment on above: Order Comment: Speci men Type: BLOOD SPECIMENOrdering Facility: [facility] Address: [address], [place] [address] Result Comment: The [place] [employer] (ADA) provides guidance for cutoff [...] Standards of Medical Care in Diabetes 2016, [place] [employer]. Diabetes Care. 2016.39(Suppl 1). Performed By: #### 2 4321-2, 2777-1, 27402-1, ####[facility] LABORATORYCLIA [id number] [place] [address] [place] Potassium [Moles/Vol] 4.9 mmol/L Normal 3.7-5.1 [facility] Comment on above: Order Comment: Speci men Type: BLOOD SPECIMENOrdering Facility: [facility] Address: [address] [place] [address] Performed By: #### 2 4321-2, 2777-1, 13075-1, ####[facility] LABORATORYCLIA [id number] [place] [address] [place] Sodium [Moles/Vol] 133 mmol/L Low 136-144 [facility] Comment on above: Order Comment: Speci men Type: BLOOD SPECIMENOrdering Facility: [facility] Address: [address] [place] [address] Performed By: #### 2 4321-2, 2777-1, 24770-8, ####[facility] LABORATORYCLIA [id number] [place] [address] [place] Urea nitrogen [Mass/Vol] 68 mg/dL High 9-24 [facility] Comment on above: Order Comment: Speci men Type: BLOOD SPECIMENOrdering Facility: [facility] Address: [address] [place] [address] Performed By: #### 2 4321-2, 2777-1, 60238-5, 02215-1 ####[facility] LABORATORYCLIA [id number] [address] CBC panel Auto (Bld)on 08-29 Erythrocyte distribution width (RBC) [Ratio] 12.2 % Normal 11.5-15.0 [facility] Comment on above: Order Comment: Speci men Type: BLOOD SPECIMENOrdering Facility: [facility] Address: [address] [place] [address] Performed By: #### 5 8410-2 ####[facility] LABORATORYCLIA [id number] [address] Hematocrit (Bld) [Volume fraction] 37.9 % Low 39.0-51.0 [facility] Comment on above: Order Comment: Speci men Type: BLOOD SPECIMENOrdering Facility: [facility] Address: [address] [place] [address] Performed By: #### 5 8410-2 ####[facility] LABORATORYCLIA [id number] [address] Hemoglobin (Bld) [Mass/Vol] 12.9 g/dL Low 13.0-17.0 [facility] Comment on above: Order Comment: Speci men Type: BLOOD SPECIMENOrdering Facility: [facility] Address: [address] [place] [address] Performed By: #### 5 8410-2 ####[facility] LABORATORYCLIA [id number] [place] [id number] [facility] MCH (RBC) [Entitic mass] 29.7 pg Normal 26.0-34.0 [facility] Comment on above: Order Comment: Speci men Type: BLOOD SPECIMENOrdering Facility: [facility] Address: [address] [place] [address] Performed By: #### 5 8410-2 ####[facility] LABORATORYCLIA [id number] [address] [place] MCHC (RBC) [Mass/Vol] 34.0 g/dL Normal 30.5-36.0 [facility] Comment on above: Order Comment: Speci men Type: BLOOD SPECIMENOrdering Facility: [facility] Address: [address] [place] [address] Performed By: #### 5 8410-2 ####[facility] LABORATORYCLIA [id number] [place] [address] [place] MCV (RBC) [Entitic vol] 87.3 fL Normal 80.0-100.0 [facility] Comment on above: Order Comment: Speci men Type: BLOOD SPECIMENOrdering Facility: [facility] Address: [address] [place] [address] Performed By: #### 5 8410-2 ####[facility] LABORATORYCLIA [id number] [place] [address] [place] Nucleated RBC (Bld) [#/Vol] 10*3/uL Normal <0.01 [facility] Comment on above: Order Comment: Speci men Type: BLOOD SPECIMENOrdering Facility: [facility] Address: [address] [place] [address] Performed By: #### 5 8410-2 ####[facility] LABORATORYCLIA [id number] [place] [address] [place] Platelet mean volume (Bld) [Entitic vol] 10.5 fL Normal 9.0-12.7 [facility] Comment on above: Order Comment: Speci men Type: BLOOD SPECIMENOrdering Facility: [facility] Address: [address] [place] [address] Performed By: #### 5 8410-2 ####[facility] LABORATORYCLIA [id number] [place] [address] [place] Platelets (Bld) [#/Vol] 356 10*3/uL Normal 150-400 [facility] Comment on above: Order Comment: Speci men Type: BLOOD SPECIMENOrdering Facility: [facility] Address: [address] [place] [address] Performed By: #### 5 8410-2 ####[facility] LABORATORYCLIA [id number] [address] [place] RBC (Bld) [#/Vol] 4.34 10*6/uL Normal 4.20-6.00 [facility] Comment on above: Order Comment: Speci men Type: BLOOD SPECIMENOrdering Facility: [facility] HOSPITAL Address: [place] [address] Performed By: #### 5 8410-2 ####[facility] LABORATORYCLIA [id number] [place] [address] [place] WBC (Bld) [#/Vol] 6.11 10*3/uL Normal 3.70-11.00 [facility] Comment on above: Order Comment: Speci men Type: BLOOD SPECIMENOrdering Facility: [facility] Address: [address] [place] [address] Performed By: #### 5 8410-2 ####[place] LABORATORYCLIA [id number] [address] STATES [facility] HIGH SENSITIVITY TROPONIN T (THIRD) 3 HRS AFTER INITIALon 08-29-2023 Troponin T.cardiac High sensitivity method [Mass/Vol] 32 ng/L High <12 [facility] Comment on above: Order Comment: Speci men Type: BLOOD SPECIMENOrdering Facility: [facility] Address: [address] [place] [address] Result Comment: When assessing risk for acute [...] 30 day MACE. Performed By: #### L [id number] ####[facility] LABORATORYCLIA [id number] [place] [id number] [facility] [place] Iron and Iron binding capaci ty panelon 08-29-2023 Iron [Mass/Vol] 170 ug/dL Normal 41-186 [facility] Comment on above: Order Comment: Speci men Type: BLOOD SPECIMENOrdering Facility: [facility] Address: [address] [place] [address] Performed By: #### 2 4321-2, 2777-1, 01632-9, 96613-8 ####[place] LABORATORYCLIA [id number] [place] [address] [place] Iron binding capacity [Mass/Vol] 331 ug/dL Normal 232-386 [facility] Comment on above: Order Comment: Speci men Type: BLOOD SPECIMENOrdering Facility: [facility] Address: [address] [place] [address] Performed By: #### 2 4321-2, 2777-1, 93378-3, ####[place] LABORATORYCLIA [id number] [place] [address] [place] Iron/TIBC [Molar ratio] 51.4 % Normal 20.0-55.0 [facility] Comment on above: Order Comment: Speci men Type: BLOOD SPECIMENOrdering Facility: [facility] Address: [address] [place] [address] Performed By: #### 2 4321-2, 2777-1, 22149-3, ####[place] LABORATORYCLIA [id number] [place] [address] [place] Lactate (Bld) [Moles/Vol]on 08-29-2023 Lactate [Moles/Vol] 1.1 mmol/L Normal 0.5-2.2 [facility] Comment on above: Order Comment: Speci men Type: BLOOD SPECIMENOrdering Facility: [facility] Address: [address] [place] [address] Performed By: #### 3 2693-4 ####[place] LABORATORYCLIA [id number] [place] [address] [place] Magnesium SerPl-mCncon 08-29 Magnesium [Mass/Vol] 2.6 mg/dL High 1.7-2.3 [facility] Comment on above: Order Comment: Speci men Type: BLOOD SPECIMENOrdering Facility: [facility] Address: [address] [place] [address] Performed By: #### 2 4321-2, 2777-1, 43927-5, ####[place] [facility]ORATORYCLIA [id number] [place] [address] [place] NURSING PROGon 08-29-2023 NURSING PROG Normal [facility] NUTRITIONon 08-29-2023 NUTRITION Normal [facility] NUTRITION Normal [facility] PT EDon 08-29-2023 PT ED Normal [facility] Phosphate SerPl-mCncon 08-29 Phosphate [Mass/Vol] 4.7 mg/dL Normal 2.7-4.8 [facility] Comment on above: Order Comment: Speci men Type: BLOOD SPECIMENOrdering Facility: [facility] Address: [address] [place] [address] Performed By: #### 2 4321-2, 2777-1, 30113-6, ####[place] LABORATORYCLIA [id number] [place] [id number] [place] Prealb SerPl-mCncon 08-29-19 24 Prealbumin [Mass/Vol] 26 mg/dL Normal 17-36 [facility] Comment on above: Order Comment: Speci men Type: BLOOD SPECIMENOrdering Facility: [facility] Address: [address] [place] [address] Performed By: #### 1 4338-8, 3033-6 ####[facility] LABCLIA [id number] [place] [id number] [place] Transferrin SerPl-mCncon Transferrin [Mass/Vol] 271 mg/dL Normal 200-360 [facility] Comment on above: Order Comment: Speci men Type: BLOOD SPECIMENOrdering Facility: [facility] Address: [address] [place] [address] Performed By: #### 1 4338-8, 3033-6 ####[facility] LABCLIA [id number] [place] [id number] [place] Urinalysis complete panel (U )on 08-29-2023 Bacteria LM.HPF (Urine sed) [#/Area] Rare Abnormal None Seen [facility] Comment on above: Order Comment: Speci men Type: URINE SPECIMENOrdering Facility: [facility] Address: [address] [place] [address] Performed By: #### 2 4356-8 ####[facility] LABORATORYCLIA [id number] [place] [address] [place] Bilirubin Ql (U) Negative Normal Negative [facility] Comment on above: Order Comment: Speci men Type: URINE SPECIMENOrdering Facility: [facility] Address: [address] [place] [address] Performed By: #### 2 4356-8 ####[facility] LABORATORYCLIA [id number] [place] [address] [place] Clarity (Unsp spec) Clear Normal Clear [facility] Comment on above: Order Comment: Speci men Type: URINE SPECIMENOrdering Facility: [facility] Address: [address] [place] [address] Performed By: #### 2 4356-8 ####[facility] LABORATORYCLIA [id number] [place] [address] [place] Color (U) Light Yellow Normal Yellow [facility] Comment on above: Order Comment: Speci men Type: URINE SPECIMENOrdering Facility: [facility] Address: [address] [place] [address] Performed By: #### 2 4356-8 ####[facility] LABORATORYCLIA [id number] [place] [address] [place] Glucose Test strip (U) [Mass/Vol] Negative Normal Trace, Negative [facility] Comment on above: Order Comment: Speci men Type: URINE SPECIMENOrdering Facility: [facility] Address: [address] [place] [address] Performed By: #### 2 4356-8 ####[facility] LABORATORYCLIA [id number] [place] [address] [place] Hemoglobin Ql (U) Negative Normal Negative, Trace [facility] Comment on above: Order Comment: Speci men Type: URINE SPECIMENOrdering Facility: [facility] Address: [address] [place] [address] Performed By: #### 2 4356-8 ####[facility] LABORATORYCLIA [id number] [place] [address] [place] Ketones Ql (U) Negative Normal Negative, Trace [facility] Comment on above: Order Comment: Speci men Type: URINE SPECIMENOrdering Facility: [facility] Address: [address] [place] [address] Performed By: #### 2 4356-8 ####[facility] LABORATORYCLIA [id number] [place] [address] [place] Leukocyte esterase Test strip Ql (U) Negative Normal Negative, 25 Angle/uL [facility] Comment on above: Order Comment: Speci men Type: URINE SPECIMENOrdering Facility: [facility] Address: [address] [place] [address] Performed By: #### 2 4356-8 ####[facility] LABORATORYCLIA [id number] [place] [address] [place] Nitrite Ql (U) Negative Normal Negative [facility] Comment on above: Order Comment: Speci men Type: URINE SPECIMENOrdering Facility: [facility] Address: [address] [place] [address] Performed By: #### 2 4356-8 ####[facility] LABORATORYCLIA [id number] [place] [address] [place] pH (U) 5.0 [pH] Normal 5.0-8.0 [facility] Comment on above: Order Comment: Speci men Type: URINE SPECIMENOrdering Facility: [facility] Address: [address] [place] [address] Performed By: #### 2 4356-8 ####[facility] LABORATORYCLIA [id number] [place] [address] [place] Protein (U) [Mass/Vol] Trace Normal Trace, Negative [facility] Comment on above: Order Comment: Speci men Type: URINE SPECIMENOrdering Facility: [facility] Address: [address] [place] [address] Performed By: #### 2 4356-8 ####[facility] LABORATORYCLIA [id number] [place] [address] [place] RBC LM.HPF (Urine sed) [#/Area] 0-3 /HPF Normal 0-3 /HPF [facility] Comment on above: Order Comment: Speci men Type: URINE SPECIMENOrdering Facility: [facility] Address: [address] [place] [address] Performed By: #### 2 4356-8 ####[place] LABORATORYCLIA [id number] [place] [address] [place] Specific gravity (U) [Rel density] 1.013 Normal 1.005-1.03 0 [facility] Comment on above: Order Comment: Speci men Type: URINE SPECIMENOrdering Facility: [facility] Address: [address] [place] [address] Performed By: #### 2 4356-8 ####[place] LABORATORYCLIA [id number] [place] [address] [place] URIC ACID CRYSTALS (UA) Moderate Abnormal None Seen [facility] Comment on above: Order Comment: Speci men Type: URINE SPECIMENOrdering Facility: [facility] Address: [address] [place] [address] Performed By: #### 2 4356-8 ####[place] LABORATORYCLIA [id number] [place] [address] [place] Urobilinogen Ql (U) Negative Normal Negative [facility] Comment on above: Order Comment: Speci men Type: URINE SPECIMENOrdering Facility: [facility] Address: [address] [place] [address] Performed By: #### 2 4356-8 ####[place] LABORATORYCLIA [id number] [place] [address] [place] WBC LM.HPF (Urine sed) [#/Area] 0-5 /HPF Normal 0-5 /HPF [facility] Comment on above: Order Comment: Speci men Type: URINE SPECIMENOrdering Facility: [facility] Address: [address] [place] [address] Performed By: #### 2 4356-8 ####[place] LABORATORYCLIA [id number] [place] [id number] [place] ALLIED HEALTHon 08-28-2023 ALLIED HEALTH Normal [facility] ALLIED HEALTH Normal [facility] Bacteria Bld Culton 08-28-19 24 Bacteria identified Cx Nom (Bld) CULTURE, BLOOD: No growth 5 days Normal [facility] Comment on above: Performed By: #### 6 00-7 ####[facility] LABCLIA [id number] [facility] [place] [address] [place] CASE MGT INIT [facility]ESon 2023 [facility] W Auto Differential pane l (Bld)on 08-28-2023 Basophils (Bld) [#/Vol] 0.03 10*3/uL Normal <0.11 [facility] Comment on above: Order Comment: Speci men Type: BLOOD SPECIMENOrdering Facility: [facility] Address: [address] [place] [address] Performed By: #### 5 7021-8 ####[place] LABORATORYCLIA [id number] [place] [address] [place] Basophils/100 WBC (Bld) 0.3 % Normal [facility] Comment on above: Order Comment: Speci men Type: BLOOD SPECIMENOrdering Facility: [facility] Address: [address] [place] [address] Performed By: #### 5 7021-8 ####[facility] LABORATORYCLIA [id number] [place] [address] [place] Differential cell count method Nom (Bld) Auto Normal [facility] Comment on above: Order Comment: Speci men Type: BLOOD SPECIMENOrdering Facility: [facility] Address: [address] [place] [address] Performed By: #### 5 7021-8 ####[place] [facility]ORATORYCLIA [id number] [place] [address] [place] Eosinophils (Bld) [#/Vol] 0.06 10*3/uL Normal <0.46 [facility] Comment on above: Order Comment: Speci men Type: BLOOD SPECIMENOrdering Facility: [facility] Address: [address] [place] [address] Performed By: #### 5 7021-8 ####[facility] LABORATORYCLIA [id number] [place] [id number] [place] Eosinophils/100 WBC (Bld) 0.6 % Normal [facility] Comment on above: Order Comment: Speci men Type: BLOOD SPECIMENOrdering Facility: [facility] Address: [address] [place] [address] Performed By: #### 5 7021-8 ####[facility] LABORATORYCLIA [id number] [place] [address] [place] Erythrocyte distribution width (RBC) [Ratio] 12.3 % Normal 11.5-15.0 [facility] Comment on above: Order Comment: Speci men Type: BLOOD SPECIMENOrdering Facility: [facility] Address: [address] [place] [address] Performed By: #### 5 7021-8 ####[facility] LABORATORYCLIA [id number] [place] [address] [place] Hematocrit (Bld) [Volume fraction] 42.0 % Normal 39.0-51.0 [facility] Comment on above: Order Comment: Speci men Type: BLOOD SPECIMENOrdering Facility: [facility] Address: [address] [place] [address] Performed By: #### 5 7021-8 ####[facility] LABORATORYCLIA [id number] [place] [id number] [place] Hemoglobin (Bld) [Mass/Vol] 14.3 g/dL Normal 13.0-17.0 [facility] Comment on above: Order Comment: Speci men Type: BLOOD SPECIMENOrdering Facility: [facility] Address: [address] [place] [address] Performed By: #### 5 7021-8 ####[facility] LABORATORYCLIA [id number] [place] [address] [place] Immature granulocytes (Bld) [#/Vol] 0.16 10*3/uL High <0.10 [facility] Comment on above: Order Comment: Speci men Type: BLOOD SPECIMENOrdering Facility: [facility] Address: [address] [place] [address] Performed By: #### 5 7021-8 ####[facility] LABORATORYCLIA [id number] [address] [place] Immature granulocytes/100 WBC (Bld) 1.6 % Normal [facility] Comment on above: Order Comment: Speci men Type: BLOOD SPECIMENOrdering Facility: [facility] Address: [address] [place] [address] Performed By: #### 5 7021-8 ####[facility] LABORATORYCLIA [id number] [place] [address] [place] Lymphocytes (Bld) [#/Vol] 1.27 10*3/uL Normal 1.00-4.00 [facility] Comment on above: Order Comment: Speci men Type: BLOOD SPECIMENOrdering Facility: [facility] Address: [address] [place] [address] Performed By: #### 5 7021-8 ####[facility] LABORATORYCLIA [id number] [address] [place] Lymphocytes/100 WBC (Bld) 12.7 % Normal [facility] Comment on above: Order Comment: Speci men Type: BLOOD SPECIMENOrdering Facility: [facility] Address: [address] [place] [address] Performed By: #### 5 7021-8 ####[facility] LABORATORYCLIA [id number] [place] [address] [place] MCH (RBC) [Entitic mass] 29.5 pg Normal 26.0-34.0 [facility] Comment on above: Order Comment: Speci men Type: BLOOD SPECIMENOrdering Facility: [facility] Address: [address] [place] [address] Performed By: #### 5 7021-8 ####[facility] LABORATORYCLIA [id number] [address] [place] MCHC (RBC) [Mass/Vol] 34.0 g/dL Normal 30.5-36.0 [facility] Comment on above: Order Comment: Speci men Type: BLOOD SPECIMENOrdering Facility: [facility] Address: [address] [place] [address] Performed By: #### 5 7021-8 ####[facility] LABORATORYCLIA [id number] [place] [id number] [place] MCV (RBC) [Entitic vol] 86.8 fL Normal 80.0-100.0 [facility] Comment on above: Order Comment: Speci men Type: BLOOD SPECIMENOrdering Facility: [facility] Address: [address] [place] [address] Performed By: #### 5 7021-8 ####[facility] LABORATORYCLIA [id number] [place] [address] [place] Monocytes (Bld) [#/Vol] 0.52 10*3/uL Normal <0.87 [facility] Comment on above: Order Comment: Speci men Type: BLOOD SPECIMENOrdering Facility: [facility] Address: [address] [place] [address] Performed By: #### 5 7021-8 ####[facility] LABORATORYCLIA [id number] [place] [address] [place] Monocytes/100 WBC (Bld) 5.2 % Normal [facility] Comment on above: Order Comment: Speci men Type: BLOOD SPECIMENOrdering Facility: [facility] Address: [address] [place] [address] Performed By: #### 5 7021-8 ####[facility] LABORATORYCLIA [id number] [place] [id number] [place] Neutrophils (Bld) [#/Vol] 7.97 10*3/uL High 1.45-7.50 [facility] Comment on above: Order Comment: Speci men Type: BLOOD SPECIMENOrdering Facility: [facility] Address: [address] [place] [address] Performed By: #### 5 7021-8 ####[facility] LABORATORYCLIA [id number] [place] [id number] [place] Neutrophils/100 WBC (Bld) 79.6 % Normal [facility] Comment on above: Order Comment: Speci men Type: BLOOD SPECIMENOrdering Facility: [facility] Address: [address] [place] [address] Performed By: #### 5 7021-8 ####[facility] LABORATORYCLIA [id number] [place] [address] [place] Nucleated RBC (Bld) [#/Vol] 10*3/uL Normal <0.01 [facility] Comment on above: Order Comment: Speci men Type: BLOOD SPECIMENOrdering Facility: [facility] Address: [address] [place] [address] Performed By: #### 5 7021-8 ####[facility] LABORATORYCLIA [id number] [place] [address] [place] Nucleated RBC/100 WBC (Bld) [Ratio] 0.0 /100 WBC Normal [facility] Comment on above: Order Comment: Speci men Type: BLOOD SPECIMENOrdering Facility: [facility] Address: [address] [place] [address] Performed By: #### 5 7021-8 ####[facility] LABORATORYCLIA [id number] [place] [address] [place] Platelet mean volume (Bld) [Entitic vol] 10.4 fL Normal 9.0-12.7 [facility] Comment on above: Order Comment: Speci men Type: BLOOD SPECIMENOrdering Facility: [facility] Address: [address] [place] [address] Performed By: #### 5 7021-8 ####[facility] LABORATORYCLIA [id number] [place] [address] [place] Platelets (Bld) [#/Vol] 529 10*3/uL High 150-400 [facility] Comment on above: Order Comment: Speci men Type: BLOOD SPECIMENOrdering Facility: [facility] Address: [address] [place] [address] Performed By: #### 5 7021-8 ####[facility] LABORATORYCLIA [id number] [place] [address] [place] RBC (Bld) [#/Vol] 4.84 10*6/uL Normal 4.20-6.00 [facility] Comment on above: Order Comment: Speci men Type: BLOOD SPECIMENOrdering Facility: [facility] Address: [address] [place] [address] Performed By: #### 5 7021-8 ####[facility] LABORATORYCLIA [id number] [place] [address] [place] WBC (Bld) [#/Vol] 10.01 10*3/uL Normal 3.70-11.00 [facility] Comment on above: Order Comment: Speci men Type: BLOOD SPECIMENOrdering Facility: [facility] Address: [address] [place] [address] Performed By: #### 5 7021-8 ####[place] [facility]ORATORYCLIA [id number] [address] OF [facility] CNOVon 08-28-2023 CNOV Office Visit (GENNOM ) -- AISHA JULIEN ([id number]) 1955 M Date Time Provider Department 08/28/23 10:15 AM [facility] During your visit today, we recorded the [...] Oropharynx: Lips, (more content not included)... Normal [facility] CONSULTon 08-28-2023 CONSULT Normal [facility] CT ABD/PEL WO IVCONon 2023 CT ABD/PEL WO IVCON Normal [facility] CT BRAIN WO IVCONon 08-28-19 CT BRAIN WO IVCON Normal [facility] Comprehensive metabolic 2000 panelon 08-28-2023 Albumin [Mass/Vol] 4.1 g/dL Normal 3.9-4.9 [facility] Comment on above: Order Comment: Speci men Type: BLOOD SPECIMENOrdering Facility: [facility] Address: [address] [place] [address] [place] [address] Performed By: #### 2 4323-8, [id number], 99499-7, 72773-3, 3040-3 ####[facility] LABORATORYCLIA [id number] [place] [id number] [place] ALP [Catalytic activity/Vol] 284 U/L High 38-113 [facility] Comment on above: Order Comment: Speci men Type: BLOOD SPECIMENOrdering Facility: [facility] Address: [address] [place] [address] Performed By: #### 2 4323-8, [id number], 77462-9, 11807-4, 3040-3 ####[facility] LABORATORYCLIA [id number] [place] [id number] [place] ALT [Catalytic activity/Vol] 65 U/L High 10-54 [facility] Comment on above: Order Comment: Speci men Type: BLOOD SPECIMENOrdering Facility: [facility] Address: [address] [facility] [place] [address] Performed By: #### 2 4323-8, [id number], 79432-9, 66249-9, 3040-3 ####[facility] LABORATORYCLIA [id number] [place] [id number] [place] Anion gap [Moles/Vol] 18 mmol/L Normal 9-18 [facility] Comment on above: Order Comment: Speci men Type: BLOOD SPECIMENOrdering Facility: [facility] Address: [address] [facility] [place] [address] Performed By: #### 2 4323-8, [id number], 57006-3, 60647-2, 3040-3 ####[facility] LABORATORYCLIA [id number] [place] [id number] [place] AST [Catalytic activity/Vol] 33 U/L Normal 14-40 [facility] Comment on above: Order Comment: Speci men Type: BLOOD SPECIMENOrdering Facility: [facility] Address: [address] [facility] [place] [address] Performed By: #### 2 4323-8, [id number], 22873-4, 60205-7, 3040-3 ####[facility] [facility]ORATORYCLIA [id number] [place] [address] [place] Bilirubin [Mass/Vol] 0.7 mg/dL Normal 0.2-1.3 [facility] Comment on above: Order Comment: Speci men Type: BLOOD SPECIMENOrdering Facility: [facility] Address: [address] [place] [address] Performed By: #### 2 4323-8, [id number], 93572-3, 01583-3, 3040-3 ####[facility] [facility]ORATORYCLIA [id number] [place] [id number] [place] Calcium [Mass/Vol] 9.5 mg/dL Normal 8.5-10.2 [facility] Comment on above: Order Comment: Speci men Type: BLOOD SPECIMENOrdering Facility: [facility] Address: [address] [place] [address] Performed By: #### 2 4323-8, [id number], , 13261-5, 3040-3 ####[place] [facility]ORATORYCLIA [id number] [place] [id number] [place] Chloride [Moles/Vol] 96 mmol/L Low 97-105 [facility] Comment on above: Order Comment: Speci men Type: BLOOD SPECIMENOrdering Facility: [facility] Address: [address] [place] [address] Performed By: #### 2 4323-8, [id number], 18031-5, 28222-5, 3040-3 ####[facility] LABORATORYCLIA [id number] [place] [address] [place] CO2 [Moles/Vol] 12 mmol/L Low 22-30 [facility] Comment on above: Order Comment: Speci men Type: BLOOD SPECIMENOrdering Facility: [facility] Address: [address] [place] [address] Performed By: #### 2 4323-8, [id number], 94948-8, 65678-1, 3040-3 ####[facility] LABORATORYCLIA [id number] [place] [address] [place] Creatinine [Mass/Vol] 2.53 mg/dL High 0.73-1.22 [facility] Comment on above: Order Comment: Arben suarez Type: BLOOD SPECIMENOrdering Facility: [facility] Address: [address] [place] [address] Performed By: #### 2 4323-8, [id number], 98864-6, 96884-6, 3040-3 ####[facility] LABORATORYCLIA [id number] [place] [address] [place] Creatinine and Glomerular filtration rate.predicted panel (S/P/Bld) 27 mL/min/1.73m??? Low >=60 [facility] Comment on above: Order Comment: Arben suarez Type: BLOOD SPECIMENOrdering Facility: [facility] Address: [address] [place] [address] Result Comment: Bailey mated Glomerular Filtration Rate [...] actual GFR. Performed By: #### 2 4323-8, [id number], 61314-2, 44593-4, 3040-3 ####[facility] [facility]ORATORYCLIA [id number] [place] [address] [place] Glucose [Mass/Vol] 138 mg/dL High 74-99 [facility] Comment on above: Order Comment: Arben suarez Type: BLOOD SPECIMENOrdering Facility: [facility] Address: [address] [place] [address] Result Comment: The [place] [employer] (ADA) provides guidance for cutoff [...] Standards of Medical Care in Diabetes 2016, [place] [employer]. Diabetes Care. 2016.39(Suppl 1). Performed By: #### 2 4323-8, WEQ8571, 43338-6, 16022-6, 3040-3 ####[facility] LABORATORYCLIA [id number] [place] [address] [place] Potassium [Moles/Vol] 5.4 mmol/L High 3.7-5.1 [facility] Comment on above: Order Comment: Arben suarez Type: BLOOD SPECIMENOrdering Facility: [facility] Address: [address] [place] [address] Performed By: #### 2 4323-8, [id number], 07076-7, 20973-3, 3040-3 ####[facility] LABORATORYCLIA [id number] [place] [address] [place] Protein [Mass/Vol] 8.2 g/dL High 6.3-8.0 [facility] Comment on above: Order Comment: Arben suarez Type: BLOOD SPECIMENOrdering Facility: [facility] Address: [address] [place] [address] Performed By: #### 2 4323-8, [id number], 53194-6, 75318-3, 3040-3 ####[facility] LABORATORYCLIA [id number] [place] [address] [place] Sodium [Moles/Vol] 126 mmol/L Low 136-144 [facility] Comment on above: Order Comment: Arben suarez Type: BLOOD SPECIMENOrdering Facility: [facility] Address: [address] [place] [address] Performed By: #### 2 4323-8, QDE1373, 52004-8, 81253-4, 3040-3 ####[facility] LABORATORYCLIA [id number] [place] [address] [place] Urea nitrogen [Mass/Vol] 79 mg/dL High 9-24 [facility] Comment on above: Order Comment: Speci men Type: BLOOD SPECIMENOrdering Facility: [facility] Address: [place] [address] Performed By: #### 2 4323-8, [id number], 63366-1, 12757-3, 3040-3 ####[facility] LABORATORYCLIA [id number] [address] [place] ECG COMPLETEon 08-28-2023 ECG COMPLETE Normal [facility] ED NOTEon 08-28-2023 ED NOTE HNO ID: [id number] Author: ASTRID VALLE RN Service: ? Author Type: Registered Nurse Type: ED Notes Filed: 08/28/2023 19:07 Note Text: Report to LUCILLE Cheng [facility] ED NOTE HNO ID: [id number] Author: ASTRID VALLE RN Service: ? Author Type: Registered Nurse Type: ED Notes Filed: 08/28/2023 18:33 Note Text: RN unable to obtain oral or axillary temperature. Pt refusing rectal temperature at this time. [facility] ED NOTE HNO ID: [id number] Author: JAVON AVILES RN Service: ? Author Type: Registered Nurse Type: ED Notes Filed: 08/28/2023 17:23 Note Text: Bed: 26-ED Expected date: Expected time: Means of arrival: Comments: triage Normal [facility] ED PROV NOTEon 08-28-2023 ED PROV NOTE [facility] ED Triage Noteon 08-28-2023 ED Triage Note Normal [facility] FLUABV+SARS-CoV-2+RSV Pnl Re sp VERITO+probeon 08-28-2023 FLUABV+SARS-CoV-2+RSV Pnl Resp VERITO+probe [facility] Comment on above: Performed By: #### 9 5941-1 ####[facility] HOSPITALDARIEN LABORATORYCLIA [id number] [address] [place] HIGH SENSITIVITY TROPONIN T (INITIAL)on 08-28-2023 Troponin T.cardiac High sensitivity method [Mass/Vol] 38 ng/L High <12 [facility] Comment on above: Order Comment: Speci men Type: BLOOD SPECIMENOrdering Facility: [facility] Address: [address] [place] [address] Result Comment: When assessing risk for acute [...] day MACE. Performed By: #### 2 4323-8, [id number], 82653-2, 08194-2, 3040-3 ####[facility] LABORATORYCLIA [id number] [place] [address] [place] HIGH SENSITIVITY TROPONIN T (SECOND)on 08-28-2023 Troponin T.cardiac High sensitivity method [Mass/Vol] 36 ng/L High <12 [facility] Comment on above: Order Comment: Arben suarez Type: BLOOD SPECIMENOrdering Facility: [facility] Address: [place] [address] Result Comment: When assessing risk for acute [...] 30 day MACE. Performed By: #### L [id number] ####[facility] LABORATORYCLIA [id number] [place] [address] [place] Lipase SerPl-cCncon 08-28-19 24 Lipase [Catalytic activity/Vol] 148 U/L High 16-61 [facility] Comment on above: Order Comment: Arben daniela Type: BLOOD SPECIMENOrdering Facility: [facility] Address: [address] [place] [address] Performed By: #### 2 4323-8, [id number], 55604-1, 44872-8, 3040-3 ####[facility] LABORATORYCLIA [id number] [place] [address] [place] Magnesium SerPl-mCncon 08-28 Magnesium [Mass/Vol] 2.5 mg/dL High 1.7-2.3 [facility] Comment on above: Order Comment: Arben suarez Type: BLOOD SPECIMENOrdering Facility: [facility] Address: [address] [place] [address] Performed By: #### 2 4323-8, [id number], 05286-5, 18456-1, 3040-3 ####[place] [facility]ORATORYCLIA [id number] [place] [address] [facility] [place] NT-proBNP [facility] Natriuretic peptide.B prohormone N-Terminal [Mass/Vol] 404 pg/mL High <125 [facility] Comment on above: Order Comment: Arben suarez Type: BLOOD SPECIMENOrdering Facility: [facility] Address: [address] [place] [address] Performed By: #### 2 4323-8, [id number], 53959-4, 44634-2, 3040-3 ####[place] [facility]ORATORYCLIA [id number] [place] [address] [place] PT panel Coag (PPP)on 2023 INR Coag (PPP) [Relative time] 1.3 {INR} Normal 0.9-1.3 [facility] Comment on above: Order Comment: Arben suarez Type: BLOOD SPECIMENOrdering Facility: [facility] Address: [address] [place] [address] Result Comment: Karissa min K Antagonist (VKA) Therapeutic Range: INR 2 to 3 (Target INR of 2.5)Note: For patients treated with VKA drugs, such as warfarin, the [place] [employer] 2012 Guideline recommends [...] of 3).Lizy GH, et al. Chest 2012, 141:7S-47SNishimpavel RA, et al. [facility] 2017, 70: 252-289 Performed By: #### 3 4528-0, 61831-0 ####[facility] LABORATORYCLIA [id number] [address] STATES OF [facility] PT Coag (PPP) [Time] 13.7 s High 9.7-13.0 [facility] Comment on above: Order Comment: Speci men Type: BLOOD SPECIMENOrdering Facility: [facility] Address: [address] [place] [address] Performed By: #### 3 4528-0, 27358-5 ####[facility] LABORATORYCLIA [id number] [address] SEPSIS LACTATEon 08-28-2023 Lactate [Moles/Vol] 2.2 mmol/L High 0.0-2.0 [facility] Comment on above: Order Comment: Speci men Type: BLOOD SPECIMENOrdering Facility: [facility] Address: [address] [place] [address] Performed By: #### S LACT ####[facility] LABORATORYCLIA [id number] [address] Lactate [Moles/Vol] 2.6 mmol/L High 0.0-2.0 [facility] Comment on above: Order Comment: Speci men Type: BLOOD SPECIMENOrdering Facility: [facility] Address: [address] [place] [address] Performed By: #### S LACT ####[facility] LABORATORYCLIA [id number] [address] [place] XR ABDOMEN 1V SUPINEon 08-28 XR ABDOMEN 1V SUPINE Normal [facility] XR CHEST 1V FRONTAL PORTon 0 08-28-2023 XR CHEST 1V FRONTAL PORT Normal [facility] aPTT PPPon 08-28-2023 aPTT Coag (PPP) [Time] 32.1 s Normal 23.0-32.4 [facility] Comment on above: Order Comment: Speci men Type: BLOOD SPECIMENOrdering Facility: [facility] Address: [place] [address] Performed By: #### 3 4528-0, 80127-3 ####[place] [facility]ORATORYCLIA [id number] [place] [address] [place] CASE MANAGEMon 08-17-2023 CASE MANAGEM Normal [facility] CNDSon 08-17-2023 CNDS Normal [facility] Comprehensive metabolic 2000 panelon 08-17-2023 Albumin [Mass/Vol] 3.0 g/dL Low 3.9-4.9 [facility] Comment on above: Order Comment: Speci men Type: BLOOD SPECIMENOrdering Facility: [facility] Address: [place] [address] Performed By: #### 2 4323-8, 2776-08, ####[facility] LABORATORYCLIA [id number] [place] [address] [place] ALP [Catalytic activity/Vol] 137 U/L High 38-113 [facility] Comment on above: Order Comment: Speci men Type: BLOOD SPECIMENOrdering Facility: [facility] Address: [place] [address] Performed By: #### 2 4323-8, 2776-08, ####[facility] LABORATORYCLIA [id number] [place] [address] [place] ALT [Catalytic activity/Vol] 19 U/L Normal 10-54 [facility] Comment on above: Order Comment: Speci men Type: BLOOD SPECIMENOrdering Facility: [facility] Address: [address] [place] [address] Performed By: #### 2 4323-8, 2776-08, ####[place] [facility]ORATORYCLIA [id number] [place] [address] [place] Anion gap [Moles/Vol] 11 mmol/L Normal 9-18 [facility] Comment on above: Order Comment: Speci men Type: BLOOD SPECIMENOrdering Facility: [facility] Address: [address] [place], [place] [address] Performed By: #### 2 4323-8, 2776-08, ####[facility] LABORATORYCLIA [id number] [place] [address] [place] AST [Catalytic activity/Vol] 18 U/L Normal 14-40 [facility] Comment on above: Order Comment: Speci men Type: BLOOD SPECIMENOrdering Facility: [facility] Address: [address] [place] [address] Performed By: #### 2 4323-8, 2776-08, ####[facility] LABORATORYCLIA [id number] [place] [address] [place] Bilirubin [Mass/Vol] 0.8 mg/dL Normal 0.2-1.3 [facility] Comment on above: Order Comment: Speci men Type: BLOOD SPECIMENOrdering Facility: [facility] Address: [address] [place] [address] Performed By: #### 2 4323-8, 2776-08, ####[facility] LABORATORYCLIA [id number] [place] [address] [place] Calcium [Mass/Vol] 8.4 mg/dL Low 8.5-10.2 [facility] Comment on above: Order Comment: Speci men Type: BLOOD SPECIMENOrdering Facility: [facility] Address: [address] [place] [address] Performed By: #### 2 4323-8, 2776-08, ####[facility] LABORATORYCLIA [id number] [place] [address] [place] Chloride [Moles/Vol] 102 mmol/L Normal 97-105 [facility] Comment on above: Order Comment: Speci men Type: BLOOD SPECIMENOrdering Facility: [facility] Address: [address] [place] [address] Performed By: #### 2 4323-8, 2776-08, ####[facility] LABORATORYCLIA [id number] [place] [address] [place] CO2 [Moles/Vol] 22 mmol/L Normal 22-30 [facility] Comment on above: Order Comment: Speci men Type: BLOOD SPECIMENOrdering Facility: [facility] Address: [address] [place] [address] Performed By: #### 2 4323-8, 27702-22, ####[place] [facility]ORATORYCLIA [id number] [place] [address] [place] Creatinine [Mass/Vol] 1.06 mg/dL Normal 0.73-1.22 [facility] Comment on above: Order Comment: Demarcusi men Type: BLOOD SPECIMENOrdering Facility: [facility] Address: [address] [place] [address] Performed By: #### 2 4323-8, 2776-08, ####[place] [facility]ORATORYCLIA [id number] [place] [address] [place] Creatinine and Glomerular filtration rate.predicted panel (S/P/Bld) 76 mL/min/1.73m??? Normal >=60 [facility] Comment on above: Order Comment: Speci men Type: BLOOD SPECIMENOrdering Facility: [facility] Address: [place] [address] Result Comment: Bailey mated Glomerular Filtration Rate [...] GFR. Performed By: #### 2 4323-8, 27702-22, ####[place] [facility]ORATORYCLIA [id number] [place] [address] [place] Glucose [Mass/Vol] 119 mg/dL High 74-99 [facility] Comment on above: Order Comment: Speci daniela Type: BLOOD SPECIMENOrdering Facility: [facility] Address: [address] [place] [address] Result Comment: The [place] [employer] (ADA) provides guidance for cutoff [...] Standards of Medical Care in Diabetes 2016, [place] [employer]. Diabetes Care. 2016.39(Suppl 1). Performed By: #### 2 4323-8, 2776-08, ####[facility] LABORATORYCLIA [id number] [place] [address] [place] Potassium [Moles/Vol] 3.9 mmol/L Normal 3.7-5.1 [facility] Comment on above: Order Comment: Speci men Type: BLOOD SPECIMENOrdering Facility: [facility] Address: [address] [place] [address] Performed By: #### 2 4323-8, 2776-08, ####[facility] LABORATORYCLIA [id number] [place] [address] [place] Protein [Mass/Vol] 5.9 g/dL Low 6.3-8.0 [facility] Comment on above: Order Comment: Speci men Type: BLOOD SPECIMENOrdering Facility: [facility] Address: [address] [place] [address] Performed By: #### 2 4323-8, 2776-08, ####[facility] LABORATORYCLIA [id number] [place] [address] [place] Sodium [Moles/Vol] 135 mmol/L Low 136-144 [facility] Comment on above: Order Comment: Speci men Type: BLOOD SPECIMENOrdering Facility: [facility] Address: [address] [place] [address] Performed By: #### 2 4323-8, 2776-08, ####[place] [facility]ORATORYCLIA [id number] [place] [address] [place] Urea nitrogen [Mass/Vol] 19 mg/dL Normal 05-18 [facility] Comment on above: Order Comment: Speci men Type: BLOOD SPECIMENOrdering Facility: [facility] Address: [address] [place] [address] Performed By: #### 2 4323-8, 2777-1, ####[place] [facility]ORATORYCLIA [id number] [place] [address] [place] [facility] Magnesium [Mass/Vol] 2.3 mg/dL Normal 1.7-2.3 [facility] Comment on above: Order Comment: Speci men Type: BLOOD SPECIMENOrdering Facility: [facility] Address: [address] [place] [address] Performed By: #### 2 4323-8, 27702-22, ####[place] LABORATORYCLIA [id number] [place] [address] [place] NURSING PROGon 08-17-2023 NURSING PROG Normal [facility] Phosphate SerPl-mCncon 08-17 Phosphate [Mass/Vol] 3.0 mg/dL Normal 2.7-4.8 [facility] Comment on above: Order Comment: Speci men Type: BLOOD SPECIMENOrdering Facility: [facility] Address: [address] [place] [address] Performed By: #### 2 4323-8, 2777, ####[place] LABORATORYCLIA [id number] [place] [address] [place] CASE MANAGEMon 08-16-2023 CASE MANAGEM Normal [facility] CBC panel Auto (Bld)on 08-16 Erythrocyte distribution width (RBC) [Ratio] 12.0 % Normal 11.5-15.0 [facility] Comment on above: Order Comment: Speci men Type: BLOOD SPECIMENOrdering Facility: [facility] Address: [address] [place] [address] Performed By: #### 5 8410-2 ####[facility] LABORATORYCLIA [id number] [address] [place] Hematocrit (Bld) [Volume fraction] 33.3 % Low 39.0-51.0 [facility] Comment on above: Order Comment: Speci men Type: BLOOD SPECIMENOrdering Facility: [facility] Address: [address] [place] [address] Performed By: #### 5 8410-2 ####[facility] LABORATORYCLIA [id number] [address] [place] Hemoglobin (Bld) [Mass/Vol] 11.1 g/dL Low 13.0-17.0 [facility] Comment on above: Order Comment: Speci men Type: BLOOD SPECIMENOrdering Facility: [facility] Address: [address] [place] [address] Performed By: #### 5 8410-2 ####[facility] LABORATORYCLIA [id number] [place] [address] [place] MCH (RBC) [Entitic mass] 30.2 pg Normal 26.0-34.0 [facility] Comment on above: Order Comment: Speci men Type: BLOOD SPECIMENOrdering Facility: [facility] Address: [address] [place] [address] Performed By: #### 5 8410-2 ####[facility] LABORATORYCLIA [id number] [place] [address] [place] MCHC (RBC) [Mass/Vol] 33.3 g/dL Normal 30.5-36.0 [facility] Comment on above: Order Comment: Speci men Type: BLOOD SPECIMENOrdering Facility: [facility] Address: [address] [place] [address] Performed By: #### 5 8410-2 ####[facility] LABORATORYCLIA [id number] [address] MCV (RBC) [Entitic vol] 90.5 fL Normal 80.0-100.0 [facility] Comment on above: Order Comment: Speci men Type: BLOOD SPECIMENOrdering Facility: [facility] Address: [address] [place] [address] Performed By: #### 5 8410-2 ####[place] [facility]ORATORYCLIA [id number] [place] [address] [place] Nucleated RBC (Bld) [#/Vol] 10*3/uL Normal <0.01 [facility] Comment on above: Order Comment: Speci men Type: BLOOD SPECIMENOrdering Facility: [facility] Address: [address] [place] [address] Performed By: #### 5 8410-2 ####[place] [facility]ORATORYCLIA [id number] [place] [address] [place] Platelet mean volume (Bld) [Entitic vol] 11.3 fL Normal 9.0-12.7 [facility] Comment on above: Order Comment: Speci men Type: BLOOD SPECIMENOrdering Facility: [facility] Address: [address] [place] [address] Performed By: #### 5 8410-2 ####[place] [facility]ORATORYCLIA [id number] [place] [address] [place] Platelets (Bld) [#/Vol] 214 10*3/uL Normal 150-400 [facility] Comment on above: Order Comment: Speci men Type: BLOOD SPECIMENOrdering Facility: [facility] Address: [address] [place] [address] Performed By: #### 5 8410-2 ####[place] [facility]ORATORYCLIA [id number] [place] [address] [place] RBC (Bld) [#/Vol] 3.68 10*6/uL Low 4.20-6.00 [facility] Comment on above: Order Comment: Speci men Type: BLOOD SPECIMENOrdering Facility: [facility] Address: [address] [place] [address] Performed By: #### 5 8410-2 ####[place] [facility]ORATORYCLIA [id number] [place] [address] [place] WBC (Bld) [#/Vol] 7.23 10*3/uL Normal 3.70-11.00 [facility] Comment on above: Order Comment: Speci men Type: BLOOD SPECIMENOrdering Facility: [facility] Address: [address] [place] [address] Performed By: #### 5 8410-2 ####[place] [facility]ORATORYCLIA [id number] [place] [address] [place] CONSULTon 08-16-2023 CONSULT Normal [facility] Comprehensive metabolic 2000 panelon 08-16-2023 Albumin [Mass/Vol] 3.2 g/dL Low 3.9-4.9 [facility] Comment on above: Order Comment: Speci men Type: BLOOD SPECIMENOrdering Facility: [facility] Address: [address] [place] [address] Performed By: #### 2 777-1, , ####[place] [facility]ORATORYCLIA [id number] [place] [id number] [place] ALP [Catalytic activity/Vol] 139 U/L High 38-113 [facility] Comment on above: Order Comment: Speci men Type: BLOOD SPECIMENOrdering Facility: [facility] Address: [address] [place] [address] Performed By: #### 2 777-1, , ####[place] [facility]ORATORYCLIA [id number] [place] [address] [place] ALT [Catalytic activity/Vol] 23 U/L Normal 10-54 [facility] Comment on above: Order Comment: Speci men Type: BLOOD SPECIMENOrdering Facility: [facility] Address: [address] [place] [address] Performed By: #### 2 777-1, , ####[place] [facility]ORATORYCLIA [id number] [place] [address] [place] Anion gap [Moles/Vol] 9 mmol/L Normal 9-18 [facility] Comment on above: Order Comment: Speci men Type: BLOOD SPECIMENOrdering Facility: [facility] Address: [address] [place] [address] Performed By: #### 2 777-1, , ####[place] [facility]ORATORYCLIA [id number] [place] [address] [place] AST [Catalytic activity/Vol] 22 U/L Normal 14-40 [facility] Comment on above: Order Comment: Speci men Type: BLOOD SPECIMENOrdering Facility: [facility] Address: [address] [place] [address] Performed By: #### 2 777-1, , ####[facility] LABORATORYCLIA [id number] [place] [id number] [place] Bilirubin [Mass/Vol] 0.8 mg/dL Normal 0.2-1.3 [facility] Comment on above: Order Comment: Speci men Type: BLOOD SPECIMENOrdering Facility: [facility] Address: [address] [place] [address] Performed By: #### 2 777-1, , ####[facility]ORATORYCLIA [id number] [place] [id number] [place] Calcium [Mass/Vol] 8.7 mg/dL Normal 8.5-10.2 [facility] Comment on above: Order Comment: Speci men Type: BLOOD SPECIMENOrdering Facility: [facility] Address: [address] [place] [address] Performed By: #### 2 777-1, , ####[facility] LABORATORYCLIA [id number] [place] [id number] [place] Chloride [Moles/Vol] 103 mmol/L Normal 97-105 [facility] Comment on above: Order Comment: Speci men Type: BLOOD SPECIMENOrdering Facility: [facility] Address: [address] [place] [address] Performed By: #### 2 777-1, , ####[facility] LABORATORYCLIA [id number] [place] [address] [place] CO2 [Moles/Vol] 25 mmol/L Normal 22-30 [facility] Comment on above: Order Comment: Speci men Type: BLOOD SPECIMENOrdering Facility: [facility] Address: [address] [place] [address] Performed By: #### 2 777-1, , ####[facility] [facility]ORATORYCLIA [id number] [place] [address] [place] Creatinine [Mass/Vol] 1.04 mg/dL Normal 0.73-1.22 [facility] Comment on above: Order Comment: Speci men Type: BLOOD SPECIMENOrdering Facility: [facility] Address: [address] [place] [address] Performed By: #### 2 777-1, , ####[place] LABORATORYCLIA [id number] [place] [address] [place] Creatinine and Glomerular filtration rate.predicted panel (S/P/Bld) 78 mL/min/1.73m??? Normal >=60 [facility] Comment on above: Order Comment: Speci men Type: BLOOD SPECIMENOrdering Facility: [facility] Address: [address] [place] [address] Result Comment: Baiely mated Glomerular Filtration Rate (eGFR) is calculated [...] GFR. Performed By: #### 2 777-1, , ####[facility] LABORATORYCLIA [id number] [place] [id number] [place] Glucose [Mass/Vol] 111 mg/dL High 74-99 [facility] Comment on above: Order Comment: Speci daniela Type: BLOOD SPECIMENOrdering Facility: [facility] Address: [address] [place] [address] Result Comment: The [place] [employer] (ADA) provides guidance for cutoff [...] Standards of Medical Care in Diabetes 2016, [place] [employer]. Diabetes Care. 2016.39(Suppl 1). Performed By: #### 2 777-1, , ####[facility] LABORATORYCLIA [id number] [place] [id number] [place] Potassium [Moles/Vol] 4.2 mmol/L Normal 3.7-5.1 [facility] Comment on above: Order Comment: Speci men Type: BLOOD SPECIMENOrdering Facility: [facility] Address: [address] [place] [address] Performed By: #### 2 777-1, , ####[facility] LABORATORYCLIA [id number] [place] [id number] [place] Protein [Mass/Vol] 6.2 g/dL Low 6.3-8.0 [facility] Comment on above: Order Comment: Speci men Type: BLOOD SPECIMENOrdering Facility: [facility] Address: [address] [place] [address] Performed By: #### 2 777-1, , ####[facility] LABORATORYCLIA [id number] [place] [id number] [place] Sodium [Moles/Vol] 137 mmol/L Normal 136-144 [facility] Comment on above: Order Comment: Speci men Type: BLOOD SPECIMENOrdering Facility: [facility] Address: [address] [place] [address] Performed By: #### 2 777-1, , ####[facility] LABORATORYCLIA [id number] [place] [id number] [place] Urea nitrogen [Mass/Vol] 24 mg/dL Normal - [facility] Comment on above: Order Comment: Speci men Type: BLOOD SPECIMENOrdering Facility: [facility] Address: [address] [place] [address] Performed By: #### 2 777-1, 37190-4, ####[facility] [facility]ORATORYCLIA [id number] [place] [id number] [place] Magnesium SerPl-mCncon 08-16 Magnesium [Mass/Vol] 1.8 mg/dL Normal 1.7-2.3 [facility] Comment on above: Order Comment: Speci men Type: BLOOD SPECIMENOrdering Facility: [facility] Address: [address] [place] [address] Performed By: #### 2 777-1, 83073-5, ####[facility] [facility]ORATORYCLIA [id number] [place] [address] [place] Phosphate SerPl-mCncon 08-16 Phosphate [Mass/Vol] 2.6 mg/dL Low 2.7-4.8 [facility] Comment on above: Order Comment: Speci men Type: BLOOD SPECIMENOrdering Facility: [facility] Address: [address] [place] [address] Performed By: #### 2 777-1, 71722-4, ####[facility] [facility]ORATORYCLIA [id number] [place] [id number] [place] ALLIED HEALTHon 08-15-2023 ALLIED HEALTH Normal [facility] ALLIED HEALTH Normal [facility] Basic metabolic 2000 panelon 08-15-2023 Anion gap [Moles/Vol] 10 mmol/L Normal - [facility] Comment on above: Order Comment: Speci men Type: BLOOD SPECIMENOrdering Facility: [facility] Address: [address] [place] [address] Performed By: #### 2 4321-2 ####[facility] [facility]ORATORYCLIA [id number] [place] [address] [place] Calcium [Mass/Vol] 8.8 mg/dL Normal 8.5-10.2 [facility] Comment on above: Order Comment: Speci men Type: BLOOD SPECIMENOrdering Facility: [facility] Address: [address] [place] [address] Performed By: #### 2 4321-2 ####[facility] LABORATORYCLIA [id number] [place] [address] [place] Chloride [Moles/Vol] 101 mmol/L Normal 97-105 [facility] Comment on above: Order Comment: Speci men Type: BLOOD SPECIMENOrdering Facility: [facility] Address: [address] [place] [address] Performed By: #### 2 4321-2 ####[facility] LABORATORYCLIA [id number] [place] [id number] [place] CO2 [Moles/Vol] 26 mmol/L Normal 22-30 [facility] Comment on above: Order Comment: Speci men Type: BLOOD SPECIMENOrdering Facility: [facility] Address: [address] [place] [address] Performed By: #### 2 4321-2 ####[facility] [facility]ORATORYCLIA [id number] [place] [address] [place] Creatinine [Mass/Vol] 1.08 mg/dL Normal 0.73-1.22 [facility] Comment on above: Order Comment: Speci men Type: BLOOD SPECIMENOrdering Facility: [facility] Address: [address] [place] [address] Performed By: #### 2 4321-2 ####[place] [facility]ORATORYCLIA [id number] [place] [address] [place] Creatinine and Glomerular filtration rate.predicted panel (S/P/Bld) 75 mL/min/1.73m??? Normal >=60 [facility] Comment on above: Order Comment: Speci men Type: BLOOD SPECIMENOrdering Facility: [facility] Address: [address] [place] [address] Result Comment: Bailey mated Glomerular Filtration Rate [...] actual GFR. Performed By: #### 2 4321-2 ####[facility] LABORATORYCLIA [id number] [place] [id number] [place] Glucose [Mass/Vol] 92 mg/dL Normal 74-99 [facility] Comment on above: Order Comment: Specbrooks men Type: BLOOD SPECIMENOrdering Facility: [facility] Address: [address] [place] [address] Result Comment: The [place] [employer] (ADA) provides guidance for cutoff [...] Standards of Medical Care in Diabetes 2016, [place] [employer]. Diabetes Care. 2016.39(Suppl 1). Performed By: #### 2 4321-2 ####[facility] LABORATORYCLIA [id number] [place] [id number] [place] Potassium [Moles/Vol] 4.6 mmol/L Normal 3.7-5.1 [facility] Comment on above: Order Comment: Arben suarez Type: BLOOD SPECIMENOrdering Facility: [facility] Address: [address] [place] [id number] Performed By: #### 2 4321-2 ####[facility] LABORATORYCLIA [id number] [place] [address] [place] Sodium [Moles/Vol] 137 mmol/L Normal 136-144 [facility] Comment on above: Order Comment: Arben men Type: BLOOD SPECIMENOrdering Facility: [facility] Address: [address] [place] [address] Performed By: #### 2 4321-2 ####[facility] LABORATORYCLIA [id number] [place] [address] [place] Urea nitrogen [Mass/Vol] 28 mg/dL High 9-24 [facility] Comment on above: Order Comment: Speci men Type: BLOOD SPECIMENOrdering Facility: [facility] Address: [address] [place] [address] Performed By: #### 2 4321-2 ####[facility] LABORATORYCLIA [id number] [place] [address] [place] CASE MANAGEMon 08-15-2023 CASE MANAGEM Normal [facility] CASE MANAGEM Normal [facility] CONSULT PROGon 08-15-2023 CONSULT PROG Normal [facility] Comprehensive metabolic 2000 panelon 08-15-2023 Albumin [Mass/Vol] 3.0 g/dL Low 3.9-4.9 [facility] Comment on above: Order Comment: Speci men Type: BLOOD SPECIMENOrdering Facility: [facility] Address: [address] [place] [address] Performed By: #### 1 9123-9, 40658-3, 2777-1 ####[facility] LABORATORYCLIA [id number] [place] [id number] [place] ALP [Catalytic activity/Vol] 123 U/L High 38-113 [facility] Comment on above: Order Comment: Speci men Type: BLOOD SPECIMENOrdering Facility: [facility] Address: [address] [place] [address] Performed By: #### 1 9123-9, 69072-6, 2777-1 ####[facility] LABORATORYCLIA [id number] [place] [address] [place] ALT [Catalytic activity/Vol] 24 U/L Normal 10-54 [facility] Comment on above: Order Comment: Speci men Type: BLOOD SPECIMENOrdering Facility: [facility] Address: [address] [place] [address] Performed By: #### 1 9123-9, 55336-8, 2776-08 ####[place] [facility]ORATORYCLIA [id number] [place] [address] [place] Anion gap [Moles/Vol] 8 mmol/L Low 9-18 [facility] Comment on above: Order Comment: Speci men Type: BLOOD SPECIMENOrdering Facility: [facility] Address: [address] [place] [address] Performed By: #### 1 9123-9, 56738-6, 2776- ####[facility] LABORATORYCLIA [id number] [place] [id number] [place] AST [Catalytic activity/Vol] 26 U/L Normal 14-40 [facility] Comment on above: Order Comment: Speci men Type: BLOOD SPECIMENOrdering Facility: [facility] Address: [address] [place] [address] Performed By: #### 1 9123-9, , 2776- ####[facility] LABORATORYCLIA [id number] [place] [address] [place] Bilirubin [Mass/Vol] 0.9 mg/dL Normal 0.2-1.3 [facility] Comment on above: Order Comment: Speci men Type: BLOOD SPECIMENOrdering Facility: [facility] Address: [address] [place] [address] Performed By: #### 1 9123-9, 86629-0, 2776- ####[place] [facility]ORATORYCLIA [id number] [place] [address] [place] Calcium [Mass/Vol] 8.9 mg/dL Normal 8.5-10.2 [facility] Comment on above: Order Comment: Speci men Type: BLOOD SPECIMENOrdering Facility: [facility] Address: [address] [place] [address] Performed By: #### 1 9123-9, 85510-4, 2776- ####[facility] LABORATORYCLIA [id number] [place] [address] [place] Chloride [Moles/Vol] 103 mmol/L Normal 97-105 [facility] Comment on above: Order Comment: Speci men Type: BLOOD SPECIMENOrdering Facility: [facility] Address: [address] [place] [address] Performed By: #### 1 9123-9, 18272-5, 2776-08 ####[facility] LABORATORYCLIA [id number] [place] [address] [place] CO2 [Moles/Vol] 28 mmol/L Normal 22-30 [facility] Comment on above: Order Comment: Speci men Type: BLOOD SPECIMENOrdering Facility: [facility] Address: [address] [place] [address] Performed By: #### 1 9123-9, , 2776-08 ####[place] [facility]ORATORYCLIA [id number] [address] [facility] Creatinine [Mass/Vol] 1.01 mg/dL Normal 0.73-1.22 [facility] Comment on above: Order Comment: Speci men Type: BLOOD SPECIMENOrdering Facility: [facility] Address: [address] [place] [address] Performed By: #### 1 9123-9, , 2776-08 ####[facility] LABORATORYCLIA [id number] [address] Creatinine and Glomerular filtration rate.predicted panel (S/P/Bld) 81 mL/min/1.73m??? Normal >=60 [facility] Comment on above: Order Comment: Speci men Type: BLOOD SPECIMENOrdering Facility: [facility] Address: [address] [place] [address] Result Comment: Bailey mated Glomerular Filtration Rate [...] actual GFR. Performed By: #### 1 9123-9, 40031-6, 2776-08 ####[place] [facility]ORATORYCLIA [id number] [place] [id number] [place] Glucose [Mass/Vol] 91 mg/dL Normal 74-99 [facility] Comment on above: Order Comment: Arben suarez Type: BLOOD SPECIMENOrdering Facility: [facility] Address: [address] [place] [address] Result Comment: The [place] [employer] (ADA) provides guidance for cutoff [...] Standards of Medical Care in Diabetes 2016, [place] [employer]. Diabetes Care. 2016.39(Suppl 1). Performed By: #### 1 9123-9, 46094-1, 2776-08 ####[place] [facility]ORATORYCLIA [id number] [place] [address] [place] Potassium [Moles/Vol] 5.3 mmol/L High 3.7-5.1 [facility] Comment on above: Order Comment: Arben suarez Type: BLOOD SPECIMENOrdering Facility: [facility] Address: [address] [place] [address] Performed By: #### 1 9123-9, 47958-4, 2776-08 ####[facility] [facility]ORATORYCLIA [id number] [place] [address] [place] Protein [Mass/Vol] 6.1 g/dL Low 6.3-8.0 [facility] Comment on above: Order Comment: Arben suarez Type: BLOOD SPECIMENOrdering Facility: [facility] Address: [address] [place] [address] Performed By: #### 1 9123-9, 78505-3, 2776-08 ####[facility] [facility]ORATORYCLIA [id number] [place] [address] [place] Sodium [Moles/Vol] 139 mmol/L Normal 136-144 [facility] Comment on above: Order Comment: Speci men Type: BLOOD SPECIMENOrdering Facility: [facility] Address: [place] [address] Performed By: #### 1 9123-9, 46821-6, 2777-1 ####[facility] [facility]ORATORYCLIA [id number] [place] [id number] [place] Urea nitrogen [Mass/Vol] 30 mg/dL High 9-24 [facility] Comment on above: Order Comment: Speci men Type: BLOOD SPECIMENOrdering Facility: [facility] Address: [place] [address] Performed By: #### 1 9123-9, 47396-9, 2776- ####[facility] [facility]ORATORYCLIA [id number] [place] [address] [place] Magnesium [facility]Pl[facility] Magnesium [Mass/Vol] 1.9 mg/dL Normal 1.7-2.3 [facility] Comment on above: Order Comment: Speci men Type: BLOOD SPECIMENOrdering Facility: [facility] Address: [place] [address] Performed By: #### 1 9123-9, 83920-7, 2776- ####[place] [facility]ORATORYCLIA [id number] [place] [id number] [place] NURSING PROGon 08-15-2023 NURSING PROG Normal [facility] NUTRITIONon 08-15-2023 NUTRITION Normal [facility] Phosphate SerPl-mCncon 08-15 Phosphate [Mass/Vol] 2.5 mg/dL Low 2.7-4.8 [facility] Comment on above: Order Comment: Speci men Type: BLOOD SPECIMENOrdering Facility: [facility] Address: [place] [address] Performed By: #### 1 9123-9, 66632-7, 2777-1 ####[facility] [facility]ORATORYCLIA [id number] [place] [address] [place] XR ABDOMEN 1V SUPINEon 08-15 XR ABDOMEN 1V SUPINE Normal [facility] ANES POSTPROC EVALon 023 ANES POSTPROC EVAL Normal [facility] ANES PRE-OPon 08-14-2023 ANES PRE-OP Normal [facility] CASE MANAGEMon 08-14-2023 CASE MANAGEM Normal [facility] CNCOon 08-14-2023 CNCO Letter Text Normal [facility] metabolic 2000 panelon 08-14-2023 Albumin [Mass/Vol] 3.2 g/dL Low 3.9-4.9 [facility] Comment on above: Order Comment: Speci men Type: BLOOD SPECIMENOrdering Facility: [facility] Address: [address] [place] [address] Performed By: #### 2 4323-8, , 2776-08 ####[facility] [facility]ORATORYCLIA [id number] [place] [address] [place] ALP [Catalytic activity/Vol] 122 U/L High 38-113 [facility] Comment on above: Order Comment: Speci men Type: BLOOD SPECIMENOrdering Facility: [facility] Address: [address] [place] [address] Performed By: #### 2 4323-8, , 2776-08 ####[facility] [facility]ORATORYCLIA [id number] [place] [address] [place] ALT [Catalytic activity/Vol] 19 U/L Normal 10-54 [facility] Comment on above: Order Comment: Speci men Type: BLOOD SPECIMENOrdering Facility: [facility] Address: [address] [place] [address] Performed By: #### 2 4323-8, , 2776-08 ####[facility] [facility]ORATORYCLIA [id number] [place] [address] [place] Anion gap [Moles/Vol] 13 mmol/L Normal 9-18 [facility] Comment on above: Order Comment: Speci men Type: BLOOD SPECIMENOrdering Facility: [facility] Address: [address] [place] [address] Performed By: #### 2 4323-8, , 2776-08 ####[facility] LABORATORYCLIA [id number] [place] [address] [place] AST [Catalytic activity/Vol] 26 U/L Normal 14-40 [facility] Comment on above: Order Comment: Speci men Type: BLOOD SPECIMENOrdering Facility: [facility] Address: [address] [place] [address] Performed By: #### 2 3-8, , 2776-08 ####[facility] LABORATORYCLIA [id number] [place] [address] [place] Bilirubin [Mass/Vol] 1.0 mg/dL Normal 0.2-1.3 [facility] Comment on above: Order Comment: Speci men Type: BLOOD SPECIMENOrdering Facility: [facility] Address: [address] [place] [address] Performed By: #### 2 8, , 2776-08 ####[place] [facility]ORATORYCLIA [id number] [place] [address] [place] Calcium [Mass/Vol] 9.0 mg/dL Normal 8.5-10.2 [facility] Comment on above: Order Comment: Speci men Type: BLOOD SPECIMENOrdering Facility: [facility] Address: [address] [place] [address] Performed By: #### 2 4322-8, , 2776-08 ####[facility] LABORATORYCLIA [id number] [place] [address] [place] Chloride [Moles/Vol] 100 mmol/L Normal 97-105 [facility] Comment on above: Order Comment: Speci men Type: BLOOD SPECIMENOrdering Facility: [facility] Address: [address] [place] [address] Performed By: #### 2 4323-8, , 2776-08 ####[facility] LABORATORYCLIA [id number] [place] [id number] [place] CO2 [Moles/Vol] 26 mmol/L Normal 22-30 [facility] Comment on above: Order Comment: Speci men Type: BLOOD SPECIMENOrdering Facility: [facility] Address: [address] [place] [address] Performed By: #### 2 4323-8, , 2776-08 ####[place] [facility]ORATORYCLIA [id number] [place] [address] [place] Creatinine [Mass/Vol] 1.12 mg/dL Normal 0.73-1.22 [facility] Comment on above: Order Comment: Demarcus men Type: BLOOD SPECIMENOrdering Facility: [facility] Address: [address] [place] [address] Performed By: #### 2 4323-8, , 2776-08 ####[facility] [facility]ORATORYCLIA [id number] [place] [address] [place] Creatinine and Glomerular filtration rate.predicted panel (S/P/Bld) 72 mL/min/1.73m??? Normal >=60 [facility] Comment on above: Order Comment: [facility] Type: BLOOD SPECIMENOrdering Facility: [facility] Address: [address] [place] [address] Result Comment: Bailey mated Glomerular Filtration Rate [...] Performed By: #### 2 4323-8, , 2776-08 ####[facility] [facility]ORATORYCLIA [id number] [place] [id number] [place] Glucose [Mass/Vol] 127 mg/dL High 74-99 [facility] Comment on above: Order Comment: Speci daniela Type: BLOOD SPECIMENOrdering Facility: [facility] Address: [address] [place] [address] Result Comment: The [place] [employer] (ADA) provides guidance for cutoff [...] Standards of Medical Care in Diabetes 2016, [place] [employer]. Diabetes Care. 2016.39(Suppl 1). Performed By: #### 2 4323-8, , 2776-08 ####[facility] LABORATORYCLIA [id number] [place] [id number] [place] Potassium [Moles/Vol] 4.1 mmol/L Normal 3.7-5.1 [facility] Comment on above: Order Comment: Speci men Type: BLOOD SPECIMENOrdering Facility: [facility] Address: [address] [place] [address] Performed By: #### 2 43238, , 2776-08 ####[facility] LABORATORYCLIA [id number] [place] [id number] [place] Protein [Mass/Vol] 6.6 g/dL Normal 6.3-8.0 [facility] Comment on above: Order Comment: Speci men Type: BLOOD SPECIMENOrdering Facility: [facility] Address: [address] [place] [address] Performed By: #### 2 4323-8, , 2776-08 ####[facility] LABORATORYCLIA [id number] [place] [id number] [place] Sodium [Moles/Vol] 139 mmol/L Normal 136-144 [facility] Comment on above: Order Comment: Speci men Type: BLOOD SPECIMENOrdering Facility: [facility] Address: [address] [place] [address] Performed By: #### 2 4323-8, , 2776-08 ####[facility] LABORATORYCLIA [id number] [place] [id number] [place] Urea nitrogen [Mass/Vol] 34 mg/dL High 05-18 [facility] Comment on above: Order Comment: Speci men Type: BLOOD SPECIMENOrdering Facility: [facility] Address: [address] [place] [id number] Performed By: #### 2 4323-8, 61754-9, 2776- ####[facility] [facility]ORATORYCLIA [id number] [place] [id number] [place] HISTORY PHYSICALon HISTORY PHYSICAL Normal [facility] Magnesium SerPl-ncon 08-14 Magnesium [Mass/Vol] 2.0 mg/dL Normal 1.7-2.3 [facility] Comment on above: Order Comment: Speci men Type: BLOOD SPECIMENOrdering Facility: [facility] Address: [address] [place] [id number] Performed By: #### 2 4323-8, , 2776-08 ####[facility] [facility]ORATORYCLIA [id number] [place] [id number] [place] NURSING PROGon 08-14-2023 NURSING PROG Normal [facility] NURSING PROG Normal [facility] NURSING PROG Normal [facility] NUTRITIONon 08-14-2023 NUTRITION Normal [facility] Phosphate SerPl-ncon 08-14 Phosphate [Mass/Vol] 2.9 mg/dL Normal 2.7-4.8 [facility] Comment on above: Order Comment: Speci men Type: BLOOD SPECIMENOrdering Facility: [facility] Address: [place] [id number] Performed By: #### 2 4323-8, 29493-1, 2776-08 ####[facility] LABORATORYCLIA [id number] [place] [id number] [place] Upper GI endoscopyon 023 Upper GI endoscopy Normal [facility] XR ABDOMEN 1V SUPINEon 08-14 XR ABDOMEN 1V SUPINE Normal [facility] XR ABDOMEN 1V SUPINE Normal [facility] ALLIED HEALTHon 08-13-2023 ALLIED HEALTH [facility] ANES POSTPROC EVALon 023 ANES POSTPROC EVAL Normal [facility] ANES PRE-OPon 08-13-2023 ANES PRE-OP Normal [facility] CASE MANAGEMon 08-13-2023 CASE MANAGEM [facility] CNPNon 08-13-2023 CNPN Telephone ([id number]) -- AISHA JULIEN ([id number]) 1955 M Date Time Provider Department 08/13/23 [place] [facility] [id number] During your visit today, we recorded the following information about you: Jessie Zamora RN 08/13/2023 10:25 AM Signed Call made to [facility] patient employer to get [facility] paperwork for him. Left a with [...] RN - Fully Assessed Reason for Visit: [facility] Paperwork [[id number]] Prescriptions as of 08/14/2023 - [...] NaCl 0.45% iv infusion - phenol 1 [place] (CHLORASEPTIC) - NaCl 0.9% iv flush bag [...] Encounter Status:Closed by JESSIE ZAMORA on 08/14/23 [facility] CYTOLOGY NON-GYNon 3 ADEQUACY INTERPRETATION Normal [facility] Comment on above: Order Comment: Speci men Type: SPECIMEN OBTAINED BY ASPIRATIONOrdering Facility: [facility] Address: [place] [address] Result Comment: A: # 1 Lymphoid sampleB: #1, 2 Lesional cells present. Monotonous cells could be low-grade neuroendocrine tumor.Dr. Dsouza / Richard Farrell letter in the above intra-procedural assessment refers to a unique site. The specific site is indicated in the final diagnosis portion of the report. Each number in this assessment references a discrete evaluation episode.Intra-procedural assessment performed at [facility], [address] [place] [address] Performed By: #### C YTONON ####[facility] LABORATORYCLIA [id number] [address] [place] CASE REPORT Normal [facility] Comment on above: Order Comment: Speci men Type: SPECIMEN OBTAINED BY ASPIRATIONOrdering Facility: [facility] Address: [address] [place] [address] Result Comment: [facility] Cytology Report Case: [id number] Provider: Stephanie Avery MD Collected: 08/13/2023 11:22 AMOrdering Location: [facility] Received: 08/13/2023 12:00 PM Endoscopy - ENDOPathologist: Darrius Dsouza MDSpecimens: A) - LYMPH NODE FINE NEEDLE ASPIRATION, PORTAL LYMPH NODE B) - PANCREAS FINE NEEDLE ASPIRATION, UNCINATE PROCESS Performed By: #### C YTONON ####[facility] LABORATORYCLIA [id number] [address] [place] CLINICAL HISTORY Weight loss Normal [facility] Comment on above: Order Comment: Speci men Type: SPECIMEN OBTAINED BY ASPIRATIONOrdering Facility: [facility] Address: [address] [place] [address] Result Comment: Lupillo kenny outlet obstructionTachycardiaHypomagnesemiaAKI Performed By: #### C YTONON ####[facility] LABORATORYCLIA [id number] [address] [place] DIAGNOSIS COMMENT Normal [facility] Comment on above: Order Comment: Speci men Type: SPECIMEN OBTAINED BY ASPIRATIONOrdering Facility: [facility] Address: [address] [place] [address] Result Comment: A. T he diagnostic neoplastic cells are predominantly found on the ThinPrep slide. The discrepancy between the RIVERA diagnosis of lymphoid sample and the final diagnosis was reported by secure staff message to Dr. Avery on 08/14/2023 at 1101.B. This part of the case was interpreted in conjunction with the related surgical pathology case [id number] with diagnostic concurrence. Performed By: #### C YTONON ####[facility] LABORATORYCLIA [id number] [address] FINAL DIAGNOSIS [facility] Comment on above: Order Comment: Speci men Type: SPECIMEN OBTAINED BY ASPIRATIONOrdering Facility: [facility] Address: [address] [place] [address] Result Comment: A - LYMPH NODE FINE [...] Alcohol Fixed Performed By: #### C YTONON ####[facility] LABORATORYCLIA [id number] [address] OF [facility] FINAL PERFORMING LAB Normal [facility] Comment on above: Order Comment: Speci men Type: SPECIMEN OBTAINED BY ASPIRATIONOrdering Facility: [facility] Address: [address] [place] [address] Result Comment: Tech nical component, marine engine mechanic screening performed at [facility], [address] [place] [address] CLIA# [id number] interpretation performed at [facility], [address] [place] [address] CLIA# [id number] Director: Darrius Dsouza M.D. Performed By: #### C YTLADAN ####[facility] LABORATORYCLIA [id number] [place] [address] [place] [facility] GROSS DESCRIPTION Normal [facility] Comment on above: Order Comment: Speci men Type: SPECIMEN OBTAINED BY ASPIRATIONOrdering Facility: [facility] Address: [address] [place] [address] Result Comment: A. L YMPH NODE FINE NEEDLE [id number] cc clear pink CytoLyt with scant particles. ThinPrep and Cell Block prepared and 2 smears (1 air dried and 1 fixed).B. PANCREAS FINE NEEDLE ZIAYMSXMKV90 cc clear colorless CytoLyt with scant particles. ThinPrep and Cell Block prepared and 4 smears (2 air dried and 2 fixed). Performed By: #### C YTLADAN ####[facility] LABORATORYCLIA [id number] [place] [address] [place] Comprehensive metabolic 2000 panelon 08-13-2023 Albumin [Mass/Vol] 3.8 g/dL Low 3.9-4.9 [facility] Comment on above: Order Comment: Speci men Type: BLOOD SPECIMENOrdering Facility: [facility] Address: [address] [place] [address] Performed By: #### 1 9123-9, 45867-5, 2777- ####[facility] LABORATORYCLIA [id number] [place] [address] [place] ALP [Catalytic activity/Vol] 128 U/L High 38-113 [facility] Comment on above: Order Comment: Speci men Type: BLOOD SPECIMENOrdering Facility: [facility] Address: [address] [place] [address] Performed By: #### 1 9123-9, 16832-5, 2777-1 ####[facility] LABORATORYCLIA [id number] [address] [place] ALT [Catalytic activity/Vol] 19 U/L Normal 10-54 [facility] Comment on above: Order Comment: Speci men Type: BLOOD SPECIMENOrdering Facility: [facility] Address: [address] [place] [address] Performed By: #### 1 9123-9, 50469-4, 2776- ####[facility] LABORATORYCLIA [id number] [place] [address] [place] Anion gap [Moles/Vol] 12 mmol/L Normal 9-18 [facility] Comment on above: Order Comment: Speci men Type: BLOOD SPECIMENOrdering Facility: [facility] Address: [address] [place] [address] Performed By: #### 1 9123-9, 46360-0, 2776- ####[facility] LABORATORYCLIA [id number] [place] [address] [place] AST [Catalytic activity/Vol] 22 U/L Normal 14-40 [facility] Comment on above: Order Comment: Speci men Type: BLOOD SPECIMENOrdering Facility: [facility] Address: [address] [place] [address] Performed By: #### 1 9123-9, , 2776- ####[facility] LABORATORYCLIA [id number] [place] [address] [place] Bilirubin [Mass/Vol] 1.0 mg/dL Normal 0.2-1.3 [facility] Comment on above: Order Comment: Speci men Type: BLOOD SPECIMENOrdering Facility: [facility] Address: [address] [place] [address] Performed By: #### 1 9123-9, 92348-8, 2776- ####[facility] LABORATORYCLIA [id number] [place] [address] [place] Calcium [Mass/Vol] 9.5 mg/dL Normal 8.5-10.2 [facility] Comment on above: Order Comment: Speci men Type: BLOOD SPECIMENOrdering Facility: [facility] Address: [address] [place] [address] Performed By: #### 1 9123-9, 44555-9, 2776- ####[facility] LABORATORYCLIA [id number] [place] [address] [place] Chloride [Moles/Vol] 95 mmol/L Low 97-105 [facility] Comment on above: Order Comment: Speci men Type: BLOOD SPECIMENOrdering Facility: [facility] Address: [address] [place] [address] Performed By: #### 1 9123-9, 42091-9, 2776-08 ####[facility] LABORATORYCLIA [id number] [place] [address] [place] CO2 [Moles/Vol] 29 mmol/L Normal 22-30 [facility] Comment on above: Order Comment: Speci men Type: BLOOD SPECIMENOrdering Facility: [facility] Address: [address] [place] [address] Performed By: #### 1 9123-9, , 2776-08 ####[facility] LABORATORYCLIA [id number] [address] STATES OF [facility] Creatinine [Mass/Vol] 1.19 mg/dL Normal 0.73-1.22 [facility] Comment on above: Order Comment: Speci men Type: BLOOD SPECIMENOrdering Facility: [facility] Address: [address] [place] [address] Performed By: #### 1 9123-9, , 2776-08 ####[facility] LABORATORYCLIA [id number] [address] Creatinine and Glomerular filtration rate.predicted panel (S/P/Bld) 67 mL/min/1.73m??? Normal >=60 [facility] Comment on above: Order Comment: Speci men Type: BLOOD SPECIMENOrdering Facility: [facility] Address: [address] [place] [address] Result Comment: Bailey mated Glomerular Filtration Rate [...] actual GFR. Performed By: #### 1 9123-9, 53313-2, 2776-08 ####[facility] LABORATORYCLIA [id number] [place] [address] [place] Glucose [Mass/Vol] 124 mg/dL High 74-99 [facility] Comment on above: Order Comment: Speci men Type: BLOOD SPECIMENOrdering Facility: [facility] Address: [address] [place] [address] Result Comment: The [place] [employer] (ADA) provides guidance for cutoff [...] Standards of Medical Care in Diabetes 2016, [place] [employer]. Diabetes Care. 2016.39(Suppl 1). Performed By: #### 1 9123-9, , 2776-08 ####[facility] LABORATORYCLIA [id number] [place] [address] [place] Potassium [Moles/Vol] 3.5 mmol/L Low 3.7-5.1 [facility] Comment on above: Order Comment: Speci men Type: BLOOD SPECIMENOrdering Facility: [facility] Address: [address] [place] [address] Performed By: #### 1 9123-9, , 2776-08 ####[facility] LABORATORYCLIA [id number] [place] [address] [place] Protein [Mass/Vol] 7.6 g/dL Normal 6.3-8.0 [facility] Comment on above: Order Comment: Speci men Type: BLOOD SPECIMENOrdering Facility: [facility] Address: [address] [place] [address] Performed By: #### 1 9123-9, , 2776-08 ####[facility] LABORATORYCLIA [id number] [place] [address] [place] Sodium [Moles/Vol] 136 mmol/L Normal 136-144 [facility] Comment on above: Order Comment: Speci men Type: BLOOD SPECIMENOrdering Facility: [facility] Address: [place] [address] Performed By: #### 1 9123-9, 37607-1, 2777-1 ####[facility] LABORATORYCLIA [id number] [place] [address] [place] Urea nitrogen [Mass/Vol] 37 mg/dL High 9-24 [facility] Comment on above: Order Comment: Speci men Type: BLOOD SPECIMENOrdering Facility: [facility] Address: [place] [address] Performed By: #### 1 9123-9, 60412-2, 2777- ####[facility] LABORATORYCLIA [id number] [place] [address] [place] HISTORY PHYSICALon HISTORY PHYSICAL Normal [facility] Magnesium SerPl-ncon 08-13 Magnesium [Mass/Vol] 2.2 mg/dL Normal 1.7-2.3 [facility] Comment on above: Order Comment: Speci men Type: BLOOD SPECIMENOrdering Facility: [facility] Address: [place] [address] Performed By: #### 1 9123-9, 84673-8, 2777- ####[facility] LABORATORYCLIA [id number] [place] [address] [place] NURSING PROGon 08-13-2023 NURSING PROG Normal [facility] NURSING PROG Normal [facility] NURSING PROG Normal [facility] NUTRITIONon 08-13-2023 NUTRITION Normal [facility] Phosphate SerPl-mCncon 08-13 Phosphate [Mass/Vol] 3.2 mg/dL Normal 2.7-4.8 [facility] Comment on above: Order Comment: Speci men Type: BLOOD SPECIMENOrdering Facility: [facility] Address: [place] [address] Performed By: #### 1 9123-9, 73865-1, 2777-1 ####[facility] LABORATORYCLIA [id number] [address] STATES OF [facility] SURGICAL PATHOLOGYon 023 CASE REPORT Normal [facility] Comment on above: Order Comment: Speci men Type: TISSUE SPECIMENOrdering Facility: [facility] Address: [address] [place] [address] Result Comment: Surg ical Pathology Report Case: [id number] Provider: Stephanie Avery MD Collected: 08/13/2023 11:14 AMOrdering Location: [facility] Received: 08/13/2023 01:36 PM Endoscopy - ENDOPathologist: Robby Jorgensen MD, PhDSpecimens: A) - PANCREAS BIOPSY, core needle biopsy of uncinate process to r/o neuro endocrine tumor B) - LYMPH NODE BIOPSY, core needle biopsy of portal lymph node Performed By: #### S ####[facility] LABCLIA [id number] [address] DIAGNOSIS COMMENT Normal [facility] Comment on above: Order Comment: Speci men Type: TISSUE SPECIMENOrdering Facility: [facility] Address: [address] [place] [address] Result Comment: Manny romo Developed Test (LDT) Disclaimer:Performance characteristics of immunohistochemical, immunofluorescent and chromogenic in-situ hybridization tests have been determined by the performing laboratory within [facility]???s [facility] [place] ([facility], [facility], [facility], [facility], [facility], [facility], or [facility]) in a manner consistent with CLIA requirements. One or more of these tests have not been cleared or approved by the FDA. RT-PLMI is regulated under CLIA as qualified to perform high-complexity testing. These tests are used for clinical purposes. They should not be regarded as investigational or for research. Positive and negative controls stain appropriately. Performed By: #### S ####[facility] LABCLIA [id number] [address] OF [place] FINAL DIAGNOSIS Normal [facility] Comment on above: Order Comment: Specbrooks suarez Type: TISSUE SPECIMENOrdering Facility: [facility] Address: [address] [place] [address] Result Comment: A. 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 Lymph node, biopsy:-Predominantly hemorrhage admixed with some lymphoid tissue and smooth muscle.-No evidence of neoplasm in this material. Performed By: #### S ####[facility] LABCLIA [id number] [address] STATES OF [facility] FINAL PERFORMING LAB Normal [facility] Comment on above: Order Comment: Specbrooks suarez Type: TISSUE SPECIMENOrdering Facility: [facility] Address: [address] [place] [address] Result Comment: Diag nostic interpretation performed at [facility], [address] [place] [address] CLIA# [id number] Director: Taras Treadwell M.D. Performed By: #### S ####[facility] LABCLIA [id number] [address] [place] GROSS DESCRIPTION Normal [facility] Comment on above: Order Comment: Arben suarez Type: TISSUE SPECIMENOrdering Facility: [facility] Address: [address] [place] [address] Result Comment: A. P ANCREAS BIOPSYReceived in [...] submitted in one cassette.Gross examination performed at [facility], [address] [place] [address].AMS August 13, 2023 6:15 PM Performed By: #### S ####[facility] LABCLIA [id number] [facility] CL[facility]ICAnn [facility] [id number] [place], [place] [id number] [place] Upper EUSon 08-13-2023 Upper EUS Normal [facility] XR ABDOMEN 1V SUPINEon 08-13 XR ABDOMEN 1V SUPINE Normal [facility] Bilirub Conj SerPl-mCncon Bilirubin.conjugated [Mass/Vol] 0.4 mg/dL High <0.2 [facility] Comment on above: Order Comment: Speci men Type: BLOOD SPECIMENOrdering Facility: [facility] Address: [address] [place] [address] Performed By: #### 1 5152-2, 77018-6, 2571-8, 26178-4 ####[place] LABORATORYCLIA [id number] [place] [address] [facility] OF [place] CASE MANAGEMon 08-12-2023 CASE MANAGEM Normal [facility] CBC panel Auto (Bld)on 08-12 Erythrocyte distribution width (RBC) [Ratio] 11.9 % Normal 11.5-15.0 [facility] Comment on above: Order Comment: Speci men Type: BLOOD SPECIMENOrdering Facility: [facility] Address: [address] [place] [address] Performed By: #### 5 8410-2 ####[facility] LABORATORYCLIA [id number] [place] [address] [place] Hematocrit (Bld) [Volume fraction] 44.8 % Normal 39.0-51.0 [facility] Comment on above: Order Comment: Speci men Type: BLOOD SPECIMENOrdering Facility: [facility] Address: [address] [place] [address] Performed By: #### 5 8410-2 ####[facility] LABORATORYCLIA [id number] [place] [address] [place] Hemoglobin (Bld) [Mass/Vol] 14.9 g/dL Normal 13.0-17.0 [facility] Comment on above: Order Comment: Speci men Type: BLOOD SPECIMENOrdering Facility: [facility] Address: [address] [place] [address] Performed By: #### 5 8410-2 ####[facility] LABORATORYCLIA [id number] [address] STATES [facility] MCH (RBC) [Entitic mass] 29.2 pg Normal 26.0-34.0 [facility] Comment on above: Order Comment: Speci men Type: BLOOD SPECIMENOrdering Facility: [facility] Address: [address] [place] [address] Performed By: #### 5 8410-2 ####[place] LABORATORYCLIA [id number] [address] [place] MCHC (RBC) [Mass/Vol] 33.3 g/dL Normal 30.5-36.0 [facility] Comment on above: Order Comment: Speci men Type: BLOOD SPECIMENOrdering Facility: [facility] Address: [address] [place] [address] Performed By: #### 5 8410-2 ####[facility] LABORATORYCLIA [id number] [address] MCV (RBC) [Entitic vol] 87.7 fL Normal 80.0-100.0 [facility] Comment on above: Order Comment: Speci men Type: BLOOD SPECIMENOrdering Facility: [facility] Address: [address] [place] [address] Performed By: #### 5 8410-2 ####[facility] LABORATORYCLIA [id number] [address] [place] Nucleated RBC (Bld) [#/Vol] 10*3/uL Normal <0.01 [facility] Comment on above: Order Comment: Speci men Type: BLOOD SPECIMENOrdering Facility: [facility] Address: [address] [place] [address] Performed By: #### 5 8410-2 ####[facility] LABORATORYCLIA [id number] [place] [address] [place] Platelet mean volume (Bld) [Entitic vol] 11.2 fL Normal 9.0-12.7 [facility] Comment on above: Order Comment: Speci men Type: BLOOD SPECIMENOrdering Facility: [facility] Address: [address] [place] [address] Performed By: #### 5 8410-2 ####[place] LABORATORYCLIA [id number] [place] [address] [place] Platelets (Bld) [#/Vol] 273 10*3/uL Normal 150-400 [facility] Comment on above: Order Comment: Speci men Type: BLOOD SPECIMENOrdering Facility: [facility] Address: [address] [place] [address] Performed By: #### 5 8410-2 ####[place] LABORATORYCLIA [id number] [place] [address] [place] RBC (Bld) [#/Vol] 5.11 10*6/uL Normal 4.20-6.00 [facility] Comment on above: Order Comment: Speci men Type: BLOOD SPECIMENOrdering Facility: [facility] Address: [address] [place] [address] Performed By: #### 5 8410-2 ####[place] LABORATORYCLIA [id number] [place] [address] [place] WBC (Bld) [#/Vol] 11.13 10*3/uL High 3.70-11.00 [facility] Comment on above: Order Comment: Speci men Type: BLOOD SPECIMENOrdering Facility: [facility] Address: [address] [place] [address] Performed By: #### 5 8410-2 ####[place] LABORATORYCLIA [id number] [place] [address] [place] Comprehensive metabolic 2000 panelon 08-12-2023 Albumin [Mass/Vol] 3.7 g/dL Low 3.9-4.9 [facility] Comment on above: Order Comment: Speci men Type: BLOOD SPECIMENOrdering Facility: [facility] Address: [address] [place] [address] Performed By: #### 1 5152-2, 11586-7, 2571-8, 30671-8 ####[facility] LABORATORYCLIA [id number] [place] [address] [place] ALP [Catalytic activity/Vol] 124 U/L High 38-113 [facility] Comment on above: Order Comment: Speci men Type: BLOOD SPECIMENOrdering Facility: [facility] Address: [address] [place] [address] Performed By: #### 1 5152-2, 12735-2, 2570-8, 01903-4 ####[facility] LABORATORYCLIA [id number] [place] [address] [place] ALT [Catalytic activity/Vol] 19 U/L Normal 10-54 [facility] Comment on above: Order Comment: Speci men Type: BLOOD SPECIMENOrdering Facility: [facility] Address: [address] [facility] [address] Performed By: #### 1 5152-2, 70938-8, 2570-8, 99873-1 ####[facility] LABORATORYCLIA [id number] [place] [address] [place] Anion gap [Moles/Vol] 15 mmol/L Normal 9-18 [facility] Comment on above: Order Comment: Speci men Type: BLOOD SPECIMENOrdering Facility: [facility] Address: [address] [place] [address] Performed By: #### 1 5152-2, 58455-3, 2570-8, 69411-0 ####[facility] LABORATORYCLIA [id number] [place] [address] [place] AST [Catalytic activity/Vol] 22 U/L Normal 14-40 [facility] Comment on above: Order Comment: Speci men Type: BLOOD SPECIMENOrdering Facility: [facility] [facility] Address: [address] [place] [address] Performed By: #### 1 5152-2, 13600-3, 2570-8, 75506-4 ####[facility] LABORATORYCLIA [id number] [place] [id number] [place] Bilirubin [Mass/Vol] 1.1 mg/dL Normal 0.2-1.3 [facility] Comment on above: Order Comment: Speci men Type: BLOOD SPECIMENOrdering Facility: [facility] Address: [address] [place] [address] Performed By: #### 1 5152-2, 75561-4, 2570-8, 77721-2 ####[facility] LABORATORYCLIA [id number] [place] [id number] [place] Calcium [Mass/Vol] 9.6 mg/dL Normal 8.5-10.2 [facility] Comment on above: Order Comment: Speci men Type: BLOOD SPECIMENOrdering Facility: [facility] Address: [address] [place] [address] Performed By: #### 1 5152-2, 10705-5, 8, 13157-8 ####[facility] LABORATORYCLIA [id number] [place] [address] [place] Chloride [Moles/Vol] 96 mmol/L Low 97-105 [facility] Comment on above: Order Comment: Speci men Type: BLOOD SPECIMENOrdering Facility: [facility] Address: [address] [place] [address] Performed By: #### 1 5152-2, 16259-2, 2570-8, 46583-7 ####[facility] LABORATORYCLIA [id number] [place] [id number] [place] CO2 [Moles/Vol] 26 mmol/L Normal 22-30 [facility] Comment on above: Order Comment: Speci men Type: BLOOD SPECIMENOrdering Facility: [facility] Address: [address] [place] [address] Performed By: #### 1 5152-2, 06977-7, 2570-8, 18669-3 ####[facility] LABORATORYCLIA [id number] [place] [address] [place] Creatinine [Mass/Vol] 1.28 mg/dL High 0.73-1.22 [facility] Comment on above: Order Comment: Arben suarez Type: BLOOD SPECIMENOrdering Facility: [facility] Address: [address] [place] [address] Performed By: #### 1 5152-2, 49484-9, 2570-8, 37423-7 ####[facility] LABORATORYCLIA [id number] [place] [address] [place] Creatinine and Glomerular filtration rate.predicted panel (S/P/Bld) 61 mL/min/1.73m??? Normal >=60 [facility] Comment on above: Order Comment: Arebn suarez Type: BLOOD SPECIMENOrdering Facility: [facility] Address: [address] [place] [address] Result Comment: Bailey mated Glomerular Filtration Rate [...] actual GFR. Performed By: #### 1 5152-2, 27036-1, 2570-8, 69998-3 ####[facility] LABORATORYCLIA [id number] [place] [id number] [place] Glucose [Mass/Vol] 110 mg/dL High 74-99 [facility] Comment on above: Order Comment: Arben suarez Type: BLOOD SPECIMENOrdering Facility: [facility] Address: [address] [place] [address] Result Comment: The [place] [employer] (ADA) provides guidance for cutoff [...] Standards of Medical Care in Diabetes 2016, [place] [employer]. Diabetes Care. 2016.39(Suppl 1). Performed By: #### 1 5152-2, 36633-1, 8, ####[facility] LABORATORYCLIA [id number] [place] [address] [place] Potassium [Moles/Vol] 3.7 mmol/L Normal 3.7-5.1 [facility] Comment on above: Order Comment: Speci men Type: BLOOD SPECIMENOrdering Facility: [facility] Address: [address] [place] [address] Performed By: #### 1 5152-2, 59321-8, 2571-03, ####[facility] LABORATORYCLIA [id number] [place] [id number] [place] Protein [Mass/Vol] 7.8 g/dL Normal 6.3-8.0 [facility] Comment on above: Order Comment: Speci men Type: BLOOD SPECIMENOrdering Facility: [facility] Address: [address] [place] [address] Performed By: #### 1 5152-2, 52288-4, 2571-03, ####[facility] LABORATORYCLIA [id number] [place] [id number] [place] Sodium [Moles/Vol] 137 mmol/L Normal 136-144 [facility] Comment on above: Order Comment: Speci men Type: BLOOD SPECIMENOrdering Facility: [facility] Address: [address] [place] [address] Performed By: #### 1 5152-2, 16712-4, 2571-03, 93806-7 ####[facility] LABORATORYCLIA [id number] [place] [id number] [place] Urea nitrogen [Mass/Vol] 35 mg/dL High 9-24 [facility] Comment on above: Order Comment: Speci men Type: BLOOD SPECIMENOrdering Facility: [facility] Address: [address] [place] [address] Performed By: #### 1 5152-2, 65420-4, 2571-03, 10510-7 ####[facility] LABORATORYCLIA [id number] [place] [address] [facility] Magnesium SerPl-mCncon 08-12 Magnesium [Mass/Vol] 2.1 mg/dL Normal 1.7-2.3 [facility] Comment on above: Order Comment: Speci men Type: BLOOD SPECIMENOrdering Facility: [facility] Address: [address] [place] [address] Performed By: #### 1 5152-2, 73498-5, 2571-03, ####[facility] LABORATORYCLIA [id number] [address] [place] NURSING PROGon 08-12-2023 NURSING PROG Normal [facility] NUTRITIONon 08-12-2023 NUTRITION Normal [facility] Phosphate SerPl-mCncon 08-12 Phosphate [Mass/Vol] 3.2 mg/dL Normal 2.7-4.8 [facility] Comment on above: Order Comment: Speci men Type: BLOOD SPECIMENOrdering Facility: [facility] Address: [address] [place] [address] Performed By: #### 2 777-1 ####[facility] LABORATORYCLIA [id number] [place] [id number] [facility] Trigl SerPl-mCncon Triglyceride [Mass/Vol] 69 mg/dL Normal <150 [facility] Comment on above: Order Comment: Speci men Type: BLOOD SPECIMENOrdering Facility: [facility] Address: [address] [place] [address] Result Comment: <150 mg/dL, Normal 150-199 mg/dL, Borderline high 200-499 mg/dL, High>499 mg/dL, Very highReference:1. National Cholesterol Education Program ATP III Guideline At-A-Glance Quick Desk Reference: National Heart, Lung, and Blood [place]. National Institutes of Health. 2001: NIH Publication No. 01-3305. Performed By: #### 1 5152-2, 76611-7, 2571-03, ####[facility] LABORATORYCLIA [id number] [place] [address] [place] Triglyceride [Mass/Vol]on FASTING TIME 0 hrs Normal [facility] Comment on above: Order Comment: Speci men Type: BLOOD SPECIMENOrdering Facility: [facility] Address: [address] [place] [address] Performed By: #### 1 5152-2, 32545-5, 2571-8, 39521-1 ####[facility] LABORATORYCLIA [id number] [place] [address] [place] CASE MANAGEMon 08-11-2023 CASE MANAGEM Normal [facility] CRP SerPl-mCncon 08-11-2023 CRP [Mass/Vol] 4.0 mg/dL High <0.9 [facility] Comment on above: Order Comment: Speci men Type: BLOOD SPECIMENOrdering Facility: [facility] Address: [address] [place] [address] Performed By: #### 2 4323-8, 1987-12, 2776-08, ####[facility] LABORATORYCLIA [id number] [place] [id number] [place] Comprehensive metabolic 2000 panelon 08-11-2023 Albumin [Mass/Vol] 3.8 g/dL Low 3.9-4.9 [facility] Comment on above: Order Comment: Speci men Type: BLOOD SPECIMENOrdering Facility: [facility] Address: [address] [place] [id number] Performed By: #### 2 4323-8, 1987-12, 2776-08, ####[facility] LABORATORYCLIA [id number] [place] [address] [place] ALP [Catalytic activity/Vol] 107 U/L Normal 38-113 [facility] Comment on above: Order Comment: Speci men Type: BLOOD SPECIMENOrdering Facility: [facility] Address: [address] [place] [address] Performed By: #### 2 4323-8, 1987-12, 2776-08, ####[facility] LABORATORYCLIA [id number] [place] [address] [place] ALT [Catalytic activity/Vol] 17 U/L Normal 10-54 [facility] Comment on above: Order Comment: Speci men Type: BLOOD SPECIMENOrdering Facility: [facility] Address: [place] [address] Performed By: #### 2 4328, 1987-12, 2776-08, ####[facility] LABORATORYCLIA [id number] [place] [address] [place] Anion gap [Moles/Vol] 16 mmol/L Normal 9-18 [facility] Comment on above: Order Comment: Speci men Type: BLOOD SPECIMENOrdering Facility: [facility] Address: [address] [place] [address] Performed By: #### 2 4328, 1987-12, 2776-08, ####[facility] LABORATORYCLIA [id number] [place] [id number] [place] AST [Catalytic activity/Vol] 15 U/L Normal 14-40 [facility] Comment on above: Order Comment: Speci men Type: BLOOD SPECIMENOrdering Facility: [facility] Address: [place] [address] Performed By: #### 2 4328, 1987-12, 2776-08, ####[facility] LABORATORYCLIA [id number] [place] [id number] [place] Bilirubin [Mass/Vol] 1.0 mg/dL Normal 0.2-1.3 [facility] Comment on above: Order Comment: Speci men Type: BLOOD SPECIMENOrdering Facility: [facility] Address: [address] [place] [address] Performed By: #### 2 4328, 1987-12, 2776-08, ####[facility] LABORATORYCLIA [id number] [place] [address] [place] Calcium [Mass/Vol] 9.4 mg/dL Normal 8.5-10.2 [facility] Comment on above: Order Comment: Speci men Type: BLOOD SPECIMENOrdering Facility: [facility] Address: [address] [place] [address] Performed By: #### 2 432-8, 1987-12, 2776-08, ####[facility] LABORATORYCLIA [id number] [place] [address] [place] Chloride [Moles/Vol] 100 mmol/L Normal 97-105 [facility] Comment on above: Order Comment: Speci men Type: BLOOD SPECIMENOrdering Facility: [facility] Address: [address] [place] [address] Performed By: #### 2 4323-8, 1987-12, 2776-08, ####[facility] LABORATORYCLIA [id number] [place] [id number] [place] CO2 [Moles/Vol] 25 mmol/L Normal 22-30 [facility] Comment on above: Order Comment: Speci men Type: BLOOD SPECIMENOrdering Facility: [facility] Address: [address] [place] [address] Performed By: #### 2 4323-8, 1987-12, 2776-08, ####[facility] LABORATORYCLIA [id number] [place] [id number] [place] Creatinine [Mass/Vol] 1.38 mg/dL High 0.73-1.22 [facility] Comment on above: Order Comment: Speci men Type: BLOOD SPECIMENOrdering Facility: [facility] Address: [address] [place] [address] Performed By: #### 2 4323-8, 1987-12, 2776-08, ####[facility] LABORATORYCLIA [id number] [place] [id number] [place] Creatinine and Glomerular filtration rate.predicted panel (S/P/Bld) 56 mL/min/1.73m??? Low >=60 [facility] Comment on above: Order Comment: Speci men Type: BLOOD SPECIMENOrdering Facility: [facility] Address: [address] [place] [address] Result Comment: Bailey mated Glomerular Filtration Rate [...] reflect actual GFR. Performed By: #### 2 4323, 1987-12, 2776-08, ####[facility] LABORATORYCLIA [id number] [place] [id number] [place] Glucose [Mass/Vol] 123 mg/dL High 74-99 [facility] Comment on above: Order Comment: Arben suarez Type: BLOOD SPECIMENOrdering Facility: [facility] Address: [address] [place] [address] Result Comment: The [place] [employer] (ADA) provides guidance for cutoff [...] Standards of Medical Care in Diabetes 2016, [place] [employer]. Diabetes Care. 2016.39(Suppl 1). Performed By: #### 2 43210-30, 1987-12, 2776-08, ####[facility] LABORATORYCLIA [id number] [place] [address] [place] Potassium [Moles/Vol] 3.3 mmol/L Low 3.7-5.1 [facility] Comment on above: Order Comment: Arben suarez Type: BLOOD SPECIMENOrdering Facility: [facility] Address: [address] [place] [address] Performed By: #### 2 43210-30, 1987-12, 2776-08, ####[facility] LABORATORYCLIA [id number] [place] [address] [place] Protein [Mass/Vol] 7.5 g/dL Normal 6.3-8.0 [facility] Comment on above: Order Comment: Speci men Type: BLOOD SPECIMENOrdering Facility: [facility] Address: [address] [place] [address] Performed By: #### 2 4323-8, 1987-12, 2776-08, ####[facility] LABORATORYCLIA [id number] [place] [id number] [place] Sodium [Moles/Vol] 141 mmol/L Normal 136-144 [facility] Comment on above: Order Comment: Speci men Type: BLOOD SPECIMENOrdering Facility: [facility] Address: [address] [place] [address] Performed By: #### 2 4328, 1987-12, 2776-08, ####[facility] LABORATORYCLIA [id number] [place] [address] [place] Urea nitrogen [Mass/Vol] 32 mg/dL High 9-24 [facility] Comment on above: Order Comment: Speci men Type: BLOOD SPECIMENOrdering Facility: [facility] Address: [address] [place] [address] Performed By: #### 2 4323-8, 1987-12, 2776-08, ####[facility] [facility]ORATORYCLIA [id number] [place] [id number] [place] Magnesium SerPl-mCncon 08-11 Magnesium [Mass/Vol] 2.1 mg/dL Normal 1.7-2.3 [facility] Comment on above: Order Comment: Speci men Type: BLOOD SPECIMENOrdering Facility: [facility] Address: [address] [place] [address] Performed By: #### 2 4323-8, 1987-12, 2776-08, ####[facility] LABORATORYCLIA [id number] [place] [address] [place] NUTRITIONon 08-11-2023 NUTRITION Normal [facility] Phosphate SerPl-mCncon 08-11 Phosphate [Mass/Vol] 3.9 mg/dL Normal 2.7-4.8 [facility] Comment on above: Order Comment: Speci men Type: BLOOD SPECIMENOrdering Facility: [facility] Address: [address] [place] [address] Performed By: #### 2 4323-8, 1987-5, 2777-1, 59412-4 ####[facility] LABORATORYCLIA [id number] [place] [id number] [place] CBC W Auto Differential pane l (Bld)on 08-10-2023 Basophils (Bld) [#/Vol] 0.04 10*3/uL Normal <0.11 [facility] Comment on above: Order Comment: Speci men Type: BLOOD SPECIMENOrdering Facility: [facility] Address: [address] [place] [address] Performed By: #### 5 7021-8 ####[facility] LABORATORYCLIA [id number] [place] [id number] [place] Basophils/100 WBC (Bld) 0.4 % Normal [facility] Comment on above: Order Comment: Speci men Type: BLOOD SPECIMENOrdering Facility: [facility] Address: [address] [place] [address] Performed By: #### 5 7021-8 ####[facility] LABORATORYCLIA [id number] [place] [id number] [place] Differential cell count method Nom (Bld) Auto Normal [facility] Comment on above: Order Comment: Speci men Type: BLOOD SPECIMENOrdering Facility: [facility] Address: [address] [place] [address] Performed By: #### 5 7021-8 ####[facility] LABORATORYCLIA [id number] [place] [id number] [place] Eosinophils (Bld) [#/Vol] 0.21 10*3/uL Normal <0.46 [facility] Comment on above: Order Comment: Speci men Type: BLOOD SPECIMENOrdering Facility: [facility] Address: [address] [place] [address] Performed By: #### 5 7021-8 ####[facility] LABORATORYCLIA [id number] [place] [id number] [place] Eosinophils/100 WBC (Bld) 1.9 % Normal [facility] Comment on above: Order Comment: Speci men Type: BLOOD SPECIMENOrdering Facility: [facility] Address: [address] [place] [address] Performed By: #### 5 7021-8 ####[facility] LABORATORYCLIA [id number] [place] [address] [place] Erythrocyte distribution width (RBC) [Ratio] 12.1 % Normal 11.5-15.0 [facility] Comment on above: Order Comment: Speci men Type: BLOOD SPECIMENOrdering Facility: [facility] Address: [address] [place] [address] Performed By: #### 5 7021-8 ####[facility] LABORATORYCLIA [id number] [address] [place] Hematocrit (Bld) [Volume fraction] 41.9 % Normal 39.0-51.0 [facility] Comment on above: Order Comment: Speci men Type: BLOOD SPECIMENOrdering Facility: [facility] Address: [address] [place] [address] Performed By: #### 5 7021-8 ####[facility] LABORATORYCLIA [id number] [place] [address] [place] Hemoglobin (Bld) [Mass/Vol] 14.3 g/dL Normal 13.0-17.0 [facility] Comment on above: Order Comment: Speci men Type: BLOOD SPECIMENOrdering Facility: [facility] Address: [address] [place] [address] Performed By: #### 5 7021-8 ####[facility] LABORATORYCLIA [id number] [address] [place] Immature granulocytes (Bld) [#/Vol] 0.05 10*3/uL Normal <0.10 [facility] Comment on above: Order Comment: Speci men Type: BLOOD SPECIMENOrdering Facility: [facility] Address: [address] [place] [address] Performed By: #### 5 7021-8 ####[facility] LABORATORYCLIA [id number] [place] [address] [place] Immature granulocytes/100 WBC (Bld) 0.4 % Normal [facility] Comment on above: Order Comment: Speci men Type: BLOOD SPECIMENOrdering Facility: [facility] Address: [address] [place] [address] Performed By: #### 5 7021-8 ####[facility] LABORATORYCLIA [id number] [place] [address] [place] Lymphocytes (Bld) [#/Vol] 0.93 10*3/uL Low 1.00-4.00 [facility] Comment on above: Order Comment: Speci men Type: BLOOD SPECIMENOrdering Facility: [facility] Address: [address] [place] [address] Performed By: #### 5 7021-8 ####[facility] LABORATORYCLIA [id number] [address] [place] Lymphocytes/100 WBC (Bld) 8.4 % Normal [facility] Comment on above: Order Comment: Speci men Type: BLOOD SPECIMENOrdering Facility: [facility] Address: [address] [place] [address] Performed By: #### 5 7021-8 ####[facility] LABORATORYCLIA [id number] [place] [address] [place] MCH (RBC) [Entitic mass] 29.9 pg Normal 26.0-34.0 [facility] Comment on above: Order Comment: Speci men Type: BLOOD SPECIMENOrdering Facility: [facility] Address: [address] [place] [address] Performed By: #### 5 7021-8 ####[facility] LABORATORYCLIA [id number] [place] [address] [place] MCHC (RBC) [Mass/Vol] 34.1 g/dL Normal 30.5-36.0 [facility] Comment on above: Order Comment: Speci men Type: BLOOD SPECIMENOrdering Facility: [facility] Address: [address] [place] [address] Performed By: #### 5 7021-8 ####[facility] LABORATORYCLIA [id number] [place] [id number] [place] MCV (RBC) [Entitic vol] 87.7 fL Normal 80.0-100.0 [facility] Comment on above: Order Comment: Speci men Type: BLOOD SPECIMENOrdering Facility: [facility] Address: [address] [place] [address] Performed By: #### 5 7021-8 ####[facility] LABORATORYCLIA [id number] [place] [id number] [place] Monocytes (Bld) [#/Vol] 1.28 10*3/uL High <0.87 [facility] Comment on above: Order Comment: Speci men Type: BLOOD SPECIMENOrdering Facility: [facility] Address: [address] [place] [address] Performed By: #### 5 7021-8 ####[facility] LABORATORYCLIA [id number] [place] [id number] [place] Monocytes/100 WBC (Bld) 11.5 % Normal [facility] Comment on above: Order Comment: Speci men Type: BLOOD SPECIMENOrdering Facility: [facility] Address: [address] [place] [address] Performed By: #### 5 7021-8 ####[facility] LABORATORYCLIA [id number] [place] [id number] [place] Neutrophils (Bld) [#/Vol] 8.62 10*3/uL High 1.45-7.50 [facility] Comment on above: Order Comment: Speci men Type: BLOOD SPECIMENOrdering Facility: [facility] Address: [address] [place] [address] Performed By: #### 5 7021-8 ####[facility] LABORATORYCLIA [id number] [place] [id number] [place] Neutrophils/100 WBC (Bld) 77.4 % Normal [facility] Comment on above: Order Comment: Speci men Type: BLOOD SPECIMENOrdering Facility: [facility] Address: [address] [place] [address] Performed By: #### 5 7021-8 ####[facility] LABORATORYCLIA [id number] [place] [address] [place] Nucleated RBC (Bld) [#/Vol] 10*3/uL Normal <0.01 [facility] Comment on above: Order Comment: Speci men Type: BLOOD SPECIMENOrdering Facility: [facility] Address: [address] [place] [address] Performed By: #### 5 7021-8 ####[facility] LABORATORYCLIA [id number] [place] [address] [place] Nucleated RBC/100 WBC (Bld) [Ratio] 0.0 /100 WBC Normal [facility] Comment on above: Order Comment: Speci men Type: BLOOD SPECIMENOrdering Facility: [facility] Address: [address] [place] [address] Performed By: #### 5 7021-8 ####[facility] LABORATORYCLIA [id number] [place] [address] [place] Platelet mean volume (Bld) [Entitic vol] 11.5 fL Normal 9.0-12.7 [facility] Comment on above: Order Comment: Speci men Type: BLOOD SPECIMENOrdering Facility: [facility] Address: [address] [place] [address] Performed By: #### 5 7021-8 ####[facility] LABORATORYCLIA [id number] [place] [address] [place] Platelets (Bld) [#/Vol] 285 10*3/uL Normal 150-400 [facility] Comment on above: Order Comment: Speci men Type: BLOOD SPECIMENOrdering Facility: [facility] Address: [address] [place] [address] Performed By: #### 5 7021-8 ####[facility] LABORATORYCLIA [id number] [place] [id number] [place] RBC (Bld) [#/Vol] 4.78 10*6/uL Normal 4.20-6.00 [facility] Comment on above: Order Comment: Speci men Type: BLOOD SPECIMENOrdering Facility: [facility] Address: [address] [place] [address] Performed By: #### 5 7021-8 ####[facility] LABORATORYCLIA [id number] [place] [id number] [place] WBC (Bld) [#/Vol] 11.13 10*3/uL High 3.70-11.00 [facility] Comment on above: Order Comment: Speci men Type: BLOOD SPECIMENOrdering Facility: [facility] Address: [address] [place] [address] Performed By: #### 5 7021-8 ####[place] LABORATORYCLIA [id number] [place] [id number] [place] Comprehensive metabolic 2000 panelon 08-10-2023 Albumin [Mass/Vol] 4.0 g/dL Normal 3.9-4.9 [facility] Comment on above: Order Comment: Speci men Type: BLOOD SPECIMENOrdering Facility: [facility] Address: [address] [place] [address] Performed By: #### 2 4323-8, , 2776- ####[facility] LABORATORYCLIA [id number] [place] [id number] [place] ALP [Catalytic activity/Vol] 111 U/L Normal 38-113 [facility] Comment on above: Order Comment: Speci men Type: BLOOD SPECIMENOrdering Facility: [facility] Address: [address] [place] [address] Performed By: #### 2 4323-8, , 2776- ####[facility] LABORATORYCLIA [id number] [place] [id number] [place] ALT [Catalytic activity/Vol] 21 U/L Normal 10-54 [facility] Comment on above: Order Comment: Speci men Type: BLOOD SPECIMENOrdering Facility: [facility] Address: [address] [place] [address] Performed By: #### 2 4323-8, , 2776-08 ####[facility] LABORATORYCLIA [id number] [place] [address] [place] Anion gap [Moles/Vol] 15 mmol/L Normal 9-18 [facility] Comment on above: Order Comment: Speci men Type: BLOOD SPECIMENOrdering Facility: [facility] Address: [address] [place] [address] Performed By: #### 2 4323-8, , 2776-08 ####[facility] LABORATORYCLIA [id number] [place] [id number] [place] AST [Catalytic activity/Vol] 16 U/L Normal 14-40 [facility] Comment on above: Order Comment: Speci men Type: BLOOD SPECIMENOrdering Facility: [facility] Address: [address] [place] [address] Performed By: #### 2 432-8, , 2776-08 ####[facility] LABORATORYCLIA [id number] [place] [id number] [place] Bilirubin [Mass/Vol] 0.7 mg/dL Normal 0.2-1.3 [facility] Comment on above: Order Comment: Speci men Type: BLOOD SPECIMENOrdering Facility: [facility] Address: [address] [place] [address] Performed By: #### 2 4323-8, , 2776-08 ####[facility] LABORATORYCLIA [id number] [place] [address] [place] Calcium [Mass/Vol] 9.3 mg/dL Normal 8.5-10.2 [facility] Comment on above: Order Comment: Speci men Type: BLOOD SPECIMENOrdering Facility: [facility] Address: [address] [place] [address] Performed By: #### 2 4323-8, , 2776-08 ####[facility] LABORATORYCLIA [id number] [place] [address] [place] Chloride [Moles/Vol] 100 mmol/L Normal 97-105 [facility] Comment on above: Order Comment: Speci men Type: BLOOD SPECIMENOrdering Facility: [facility] Address: [address] [place] [address] Performed By: #### 2 4323-8, , 2776-08 ####[facility] LABORATORYCLIA [id number] [place] [address] [place] CO2 [Moles/Vol] 25 mmol/L Normal 22-30 [facility] Comment on above: Order Comment: Speci men Type: BLOOD SPECIMENOrdering Facility: [facility] Address: [address] [place] [address] Performed By: #### 2 4323-8, , 2776-08 ####[facility] LABORATORYCLIA [id number] [place] [address] [place] [facility] Creatinine [Mass/Vol] 1.34 mg/dL High 0.73-1.22 [facility] Comment on above: Order Comment: Speci men Type: BLOOD SPECIMENOrdering Facility: [facility] Address: [address] [place] [address] Performed By: #### 2 4323-8, , 2776-08 ####[facility] LABORATORYCLIA [id number] [address] OF [facility] Creatinine and Glomerular filtration rate.predicted panel (S/P/Bld) 58 mL/min/1.73m??? Low >=60 [facility] Comment on above: Order Comment: Speci men Type: BLOOD SPECIMENOrdering Facility: [facility] Address: [address] [place] [address] Result Comment: Bailey mated Glomerular Filtration Rate [...] actual GFR. Performed By: #### 2 4323-8, 2776-08 ####[facility] LABORATORYCLIA [id number] [place] [address] [place] Glucose [Mass/Vol] 105 mg/dL High 74-99 [facility] Comment on above: Order Comment: Speci men Type: BLOOD SPECIMENOrdering Facility: [facility] Address: [address] [place] [address] Result Comment: The [place] [employer] (ADA) provides guidance for cutoff [...] Standards of Medical Care in Diabetes 2016, [place] [employer]. Diabetes Care. 2016.39(Suppl 1). Performed By: #### 2 4323-8, , 2776-08 ####[facility] LABORATORYCLIA [id number] [place] [address] [place] Potassium [Moles/Vol] 3.6 mmol/L Low 3.7-5.1 [facility] Comment on above: Order Comment: Speci men Type: BLOOD SPECIMENOrdering Facility: [facility] Address: [address] [place] [address] Performed By: #### 2 4323-8, , 2776-08 ####[facility] LABORATORYCLIA [id number] [place] [address] [place] Protein [Mass/Vol] 7.5 g/dL Normal 6.3-8.0 [facility] Comment on above: Order Comment: Speci men Type: BLOOD SPECIMENOrdering Facility: [facility] Address: [address] [place] [address] Performed By: #### 2 4323-8, , 2776-08 ####[facility] LABORATORYCLIA [id number] [place] [address] [place] Sodium [Moles/Vol] 140 mmol/L Normal 136-144 [facility] Comment on above: Order Comment: Speci men Type: BLOOD SPECIMENOrdering Facility: [facility] Address: [address] [place] [address] Performed By: #### 2 4323-8, 22255-6, 2776-08 ####[place] LABORATORYCLIA [id number] [place] [address] [place] Urea nitrogen [Mass/Vol] 28 mg/dL High 9-24 [facility] Comment on above: Order Comment: Speci men Type: BLOOD SPECIMENOrdering Facility: [facility] Address: [address] [place] [address] Performed By: #### 2 4323-8, , 2776-08 ####[place] LABORATORYCLIA [id number] [place] [address] [facility] [place] [facility] Magnesium [Mass/Vol] 2.0 mg/dL Normal 1.7-2.3 [facility] Comment on above: Order Comment: Speci men Type: BLOOD SPECIMENOrdering Facility: [facility] Address: [address] [place] [address] Performed By: #### 2 4323-8, , 2776-08 ####[place] LABORATORYCLIA [id number] [place] [address] [facility] [place] NURSING PROGon 08-10-2023 NURSING PROG Normal [facility] Phosphate SerPl-mCncon 08-10 Phosphate [Mass/Vol] 3.9 mg/dL Normal 2.7-4.8 [facility] Comment on above: Order Comment: Speci men Type: BLOOD SPECIMENOrdering Facility: [facility] Address: [address] [place] [address] Performed By: #### 2 4323-8, , 2776-08 ####[facility] LABORATORYCLIA [id number] [place] [address] [place] CBC W Auto Differential pane l (Bld)on 08-09-2023 Basophils (Bld) [#/Vol] 0.06 10*3/uL Normal <0.11 [facility] Comment on above: Order Comment: Speci men Type: BLOOD SPECIMENOrdering Facility: [facility] Address: [address] [place] [address] Performed By: #### 5 7021-8 ####[facility] LABORATORYCLIA [id number] [place] [address] [place] Basophils/100 WBC (Bld) 0.6 % Normal [facility] Comment on above: Order Comment: Speci men Type: BLOOD SPECIMENOrdering Facility: [facility] Address: [address] [place] [address] Performed By: #### 5 7021-8 ####[facility] LABORATORYCLIA [id number] [address] [place] Differential cell count method Nom (Bld) Auto Normal [facility] Comment on above: Order Comment: Speci men Type: BLOOD SPECIMENOrdering Facility: [facility] Address: [address] [place] [address] Performed By: #### 5 7021-8 ####[facility] LABORATORYCLIA [id number] [address] [place] Eosinophils (Bld) [#/Vol] 0.28 10*3/uL Normal <0.46 [facility] Comment on above: Order Comment: Speci men Type: BLOOD SPECIMENOrdering Facility: [facility] Address: [address] [place] [address] Performed By: #### 5 7021-8 ####[place] LABORATORYCLIA [id number] [place] [address] [place] Eosinophils/100 WBC (Bld) 2.9 % Normal [facility] Comment on above: Order Comment: Speci men Type: BLOOD SPECIMENOrdering Facility: [facility] Address: [address] [place] [address] Performed By: #### 5 7021-8 ####[place] LABORATORYCLIA [id number] [address] [place] Erythrocyte distribution width (RBC) [Ratio] 11.9 % Normal 11.5-15.0 [facility] Comment on above: Order Comment: Speci men Type: BLOOD SPECIMENOrdering Facility: [facility] Address: [address] [place] [address] Performed By: #### 5 7021-8 ####[facility] LABORATORYCLIA [id number] [place] [address] [place] Hematocrit (Bld) [Volume fraction] 38.0 % Low 39.0-51.0 [facility] Comment on above: Order Comment: Speci men Type: BLOOD SPECIMENOrdering Facility: [facility] Address: [address] [place] [address] Performed By: #### 5 7021-8 ####[facility] LABORATORYCLIA [id number] [place] [address] [place] Hemoglobin (Bld) [Mass/Vol] 13.0 g/dL Normal 13.0-17.0 [facility] Comment on above: Order Comment: Speci men Type: BLOOD SPECIMENOrdering Facility: [facility] Address: [address] [place] [address] Performed By: #### 5 7021-8 ####[facility] LABORATORYCLIA [id number] [address] OF [place] Immature granulocytes (Bld) [#/Vol] 0.05 10*3/uL Normal <0.10 [facility] Comment on above: Order Comment: Speci men Type: BLOOD SPECIMENOrdering Facility: [facility] Address: [address] [place] [address] Performed By: #### 5 7021-8 ####[facility] LABORATORYCLIA [id number] [address] [place] Immature granulocytes/100 WBC (Bld) 0.5 % Normal [facility] Comment on above: Order Comment: Speci men Type: BLOOD SPECIMENOrdering Facility: [facility] Address: [address] [place] [address] Performed By: #### 5 7021-8 ####[facility] LABORATORYCLIA [id number] [place] [address] [place] Lymphocytes (Bld) [#/Vol] 0.87 10*3/uL Low 1.00-4.00 [facility] Comment on above: Order Comment: Speci men Type: BLOOD SPECIMENOrdering Facility: [facility] Address: [address] [place] [address] Performed By: #### 5 7021-8 ####[facility] LABORATORYCLIA [id number] [address] [place] Lymphocytes/100 WBC (Bld) 9.1 % Normal [facility] Comment on above: Order Comment: Speci men Type: BLOOD SPECIMENOrdering Facility: [facility] Address: [address] [place] [address] Performed By: #### 5 7021-8 ####[facility] LABORATORYCLIA [id number] [place] [address] [place] MCH (RBC) [Entitic mass] 29.8 pg Normal 26.0-34.0 [facility] Comment on above: Order Comment: Speci men Type: BLOOD SPECIMENOrdering Facility: [facility] Address: [address] [place] [address] Performed By: #### 5 7021-8 ####[facility] LABORATORYCLIA [id number] [address] [place] MCHC (RBC) [Mass/Vol] 34.2 g/dL Normal 30.5-36.0 [facility] Comment on above: Order Comment: Speci men Type: BLOOD SPECIMENOrdering Facility: [facility] Address: [address] [place] [address] Performed By: #### 5 7021-8 ####[place] LABORATORYCLIA [id number] [address] STATES [facility] MCV (RBC) [Entitic vol] 87.2 fL Normal 80.0-100.0 [facility] Comment on above: Order Comment: Speci men Type: BLOOD SPECIMENOrdering Facility: [facility] Address: [address] [place], [place] [address] Performed By: #### 5 7021-8 ####[facility] LABORATORYCLIA [id number] [place] [id number] [place] Monocytes (Bld) [#/Vol] 1.22 10*3/uL High <0.87 [facility] Comment on above: Order Comment: Speci men Type: BLOOD SPECIMENOrdering Facility: [facility] Address: [address] [place] [address] Performed By: #### 5 7021-8 ####[facility] LABORATORYCLIA [id number] [place] [id number] [place] Monocytes/100 WBC (Bld) 12.8 % Normal [facility] Comment on above: Order Comment: Speci men Type: BLOOD SPECIMENOrdering Facility: [facility] Address: [address] [place] [address] Performed By: #### 5 7021-8 ####[facility] LABORATORYCLIA [id number] [place] [address] [place] Neutrophils (Bld) [#/Vol] 7.06 10*3/uL Normal 1.45-7.50 [facility] Comment on above: Order Comment: Speci men Type: BLOOD SPECIMENOrdering Facility: [facility] Address: [address] [place] [address] Performed By: #### 5 7021-8 ####[facility] LABORATORYCLIA [id number] [place] [address] [place] Neutrophils/100 WBC (Bld) 74.1 % Normal [facility] Comment on above: Order Comment: Speci men Type: BLOOD SPECIMENOrdering Facility: [facility] Address: [address] [place] [address] Performed By: #### 5 7021-8 ####[facility] LABORATORYCLIA [id number] [place] [id number] [place] Nucleated RBC (Bld) [#/Vol] 10*3/uL Normal <0.01 [facility] Comment on above: Order Comment: Speci men Type: BLOOD SPECIMENOrdering Facility: [facility] Address: [address] [place] [address] Performed By: #### 5 7021-8 ####[facility] LABORATORYCLIA [id number] [place] [id number] [place] Nucleated RBC/100 WBC (Bld) [Ratio] 0.0 /100 WBC Normal [facility] Comment on above: Order Comment: Speci men Type: BLOOD SPECIMENOrdering Facility: [facility] Address: [address] [place] [address] Performed By: #### 5 7021-8 ####[facility] LABORATORYCLIA [id number] [place] [address] [place] Platelet mean volume (Bld) [Entitic vol] 11.2 fL Normal 9.0-12.7 [facility] Comment on above: Order Comment: Speci men Type: BLOOD SPECIMENOrdering Facility: [facility] Address: [address] [place] [address] Performed By: #### 5 7021-8 ####[facility] LABORATORYCLIA [id number] [place] [id number] [place] Platelets (Bld) [#/Vol] 298 10*3/uL Normal 150-400 [facility] Comment on above: Order Comment: Speci men Type: BLOOD SPECIMENOrdering Facility: [facility] Address: [address] [place] [address] Performed By: #### 5 7021-8 ####[facility] LABORATORYCLIA [id number] [place] [id number] [place] RBC (Bld) [#/Vol] 4.36 10*6/uL Normal 4.20-6.00 [facility] Comment on above: Order Comment: Speci men Type: BLOOD SPECIMENOrdering Facility: [facility] Address: [address] [place] [address] Performed By: #### 5 7021-8 ####[facility] LABORATORYCLIA [id number] [place] [id number] [place] WBC (Bld) [#/Vol] 9.54 10*3/uL Normal 3.70-11.00 [facility] Comment on above: Order Comment: Speci men Type: BLOOD SPECIMENOrdering Facility: [facility] Address: [address] [place] [address] Performed By: #### 5 7021-8 ####[facility] LABORATORYCLIA [id number] [place] [address] [place] Comprehensive metabolic 2000 panelon 08-09-2023 Albumin [Mass/Vol] 3.9 g/dL Normal 3.9-4.9 [facility] Comment on above: Order Comment: Speci men Type: BLOOD SPECIMENOrdering Facility: [facility] Address: [address] [place] [address] Performed By: #### 2 4323-8, 2776-08, ####[place] [facility]ORATORYCLIA [id number] [place] [id number] [place] ALP [Catalytic activity/Vol] 110 U/L Normal 38-113 [facility] Comment on above: Order Comment: Speci men Type: BLOOD SPECIMENOrdering Facility: [facility] Address: [address] [place] [address] Performed By: #### 2 4323-8, 2776-08, ####[place] [facility]ORATORYCLIA [id number] [place] [address] [place] ALT [Catalytic activity/Vol] 26 U/L Normal 10-54 [facility] Comment on above: Order Comment: Speci men Type: BLOOD SPECIMENOrdering Facility: [facility] Address: [address] [place] [address] Performed By: #### 2 4323-8, 2776-08, ####[place] [facility]ORATORYCLIA [id number] [place] [address] [place] Anion gap [Moles/Vol] 11 mmol/L Normal 9-18 [facility] Comment on above: Order Comment: Speci men Type: BLOOD SPECIMENOrdering Facility: [facility] Address: [address] [place] [address] Performed By: #### 2 4323-8, 2776-08, ####[facility] LABORATORYCLIA [id number] [place] [address] [place] AST [Catalytic activity/Vol] 21 U/L Normal 14-40 [facility] Comment on above: Order Comment: Speci men Type: BLOOD SPECIMENOrdering Facility: [facility] Address: [address] [place] [address] Performed By: #### 2 4323-8, 2776-08, ####[facility] LABORATORYCLIA [id number] [place] [address] [place] Bilirubin [Mass/Vol] 0.6 mg/dL Normal 0.2-1.3 [facility] Comment on above: Order Comment: Speci men Type: BLOOD SPECIMENOrdering Facility: [facility] Address: [address] [place] [address] Performed By: #### 2 4323-8, 2776-08, ####[place] [facility]ORATORYCLIA [id number] [place] [address] [place] Calcium [Mass/Vol] 9.4 mg/dL Normal 8.5-10.2 [facility] Comment on above: Order Comment: Speci men Type: BLOOD SPECIMENOrdering Facility: [facility] Address: [address] [place] [address] Performed By: #### 2 4323-8, 2776-08, ####[facility] LABORATORYCLIA [id number] [place] [address] [place] Chloride [Moles/Vol] 104 mmol/L Normal 97-105 [facility] Comment on above: Order Comment: Speci men Type: BLOOD SPECIMENOrdering Facility: [facility] Address: [address] [place] [address] Performed By: #### 2 4323-8, 2776-08, ####[facility] LABORATORYCLIA [id number] [place] [address] [place] CO2 [Moles/Vol] 23 mmol/L Normal 22-30 [facility] Comment on above: Order Comment: Speci men Type: BLOOD SPECIMENOrdering Facility: [facility] Address: [address] [place] [address] Performed By: #### 2 4323-8, 2777, ####[facility] LABORATORYCLIA [id number] [place] [address] [place] Creatinine [Mass/Vol] 1.52 mg/dL High 0.73-1.22 [facility] Comment on above: Order Comment: Speci men Type: BLOOD SPECIMENOrdering Facility: [facility] Address: [address] [place] [address] Performed By: #### 2 4323-8, 2777, ####[facility] LABORATORYCLIA [id number] [place] [id number] [place] Creatinine and Glomerular filtration rate.predicted panel (S/P/Bld) 50 mL/min/1.73m??? Low >=60 [facility] Comment on above: Order Comment: Arben men Type: BLOOD SPECIMENOrdering Facility: [facility] Address: [address] [place] [address] Result Comment: Bailey mated Glomerular Filtration Rate [...] actual GFR. Performed By: #### 2 4323-8, 2777, ####[facility] LABORATORYCLIA [id number] [place] [address] [place] Glucose [Mass/Vol] 132 mg/dL High 74-99 [facility] Comment on above: Order Comment: Arben suarez Type: BLOOD SPECIMENOrdering Facility: [facility] Address: [address] [place] [address] Result Comment: The [place] [employer] (ADA) provides guidance for cutoff [...] Standards of Medical Care in Diabetes 2016, [place] [employer]. Diabetes Care. 2016.39(Suppl 1). Performed By: #### 2 4323-8, 2776-08, ####[facility] LABORATORYCLIA [id number] [place] [address] [place] Potassium [Moles/Vol] 3.9 mmol/L Normal 3.7-5.1 [facility] Comment on above: Order Comment: Arben suarez Type: BLOOD SPECIMENOrdering Facility: [facility] Address: [address] [place] [address] Performed By: #### 2 4323-8, 2776-08, ####[facility] LABORATORYCLIA [id number] [place] [id number] [place] Protein [Mass/Vol] 7.3 g/dL Normal 6.3-8.0 [facility] Comment on above: Order Comment: Arben suarez Type: BLOOD SPECIMENOrdering Facility: [facility] Address: [address] [place] [address] Performed By: #### 2 4323-8, 2776-08, ####[facility] LABORATORYCLIA [id number] [place] [id number] [place] Sodium [Moles/Vol] 138 mmol/L Normal 136-144 [facility] Comment on above: Order Comment: Demarcusi daniela Type: BLOOD SPECIMENOrdering Facility: [facility] Address: [address] [place] [address] Performed By: #### 2 4323-8, 2776-08, ####[facility] LABORATORYCLIA [id number] [place] [address] [place] Urea nitrogen [Mass/Vol] 25 mg/dL High 9-24 [facility] Comment on above: Order Comment: Speci men Type: BLOOD SPECIMENOrdering Facility: [facility] Address: [address] [facility] [place] [address] Performed By: #### 2 4323-8, 2777-1, ####[facility] LABORATORYCLIA [id number] [place] [id number] [place] Magnesium SerPl-ncon 08-09 Magnesium [Mass/Vol] 2.2 mg/dL Normal 1.7-2.3 [facility] Comment on above: Order Comment: Speci men Type: BLOOD SPECIMENOrdering Facility: [facility] Address: [place] [address] Performed By: #### 2 4323-8, 277-1, ####[facility] LABORATORYCLIA [id number] [place] [id number] [place] NURSING PROGon 08-09-2023 NURSING PROG Normal [facility] NUTRITIONon 08-09-2023 NUTRITION Normal [facility] Phosphate SerPl-mCncon 08-09 Phosphate [Mass/Vol] 3.1 mg/dL Normal 2.7-4.8 [facility] Comment on above: Order Comment: Speci men Type: BLOOD SPECIMENOrdering Facility: [facility] Address: [facility] [place] [address] Performed By: #### 2 4323-8, 2776-08, ####[facility] LABORATORYCLIA [id number] [place] [id number] [place] THERAPY NTon 08-09-2023 THERAPY NT Normal [facility] ALLIED HEALTHon 08-08-2023 ALLIED HEALTH [facility] CASE MGT INIT ASSESon 2022 CASE MGT INIT [facility] CBC W Auto Differential pane l (Bld)on 08-08-2023 Basophils (Bld) [#/Vol] 0.06 10*3/uL Normal <0.11 [facility] Comment on above: Order Comment: Speci men Type: BLOOD SPECIMENOrdering Facility: [facility] Address: [address] [place] [address] Performed By: #### 5 7021-8 ####[facility] LABORATORYCLIA [id number] [place] [address] [place] Basophils/100 WBC (Bld) 0.7 % Normal [facility] Comment on above: Order Comment: Speci men Type: BLOOD SPECIMENOrdering Facility: [facility] Address: [address] [place] [address] Performed By: #### 5 7021-8 ####[facility] LABORATORYCLIA [id number] [place] [address] [place] Differential cell count method Nom (Bld) Auto Normal [facility] Comment on above: Order Comment: Speci men Type: BLOOD SPECIMENOrdering Facility: [facility] Address: [address] [place] [address] Performed By: #### 5 7021-8 ####[facility] LABORATORYCLIA [id number] [place] [address] [place] Eosinophils (Bld) [#/Vol] 0.14 10*3/uL Normal <0.46 [facility] Comment on above: Order Comment: Speci men Type: BLOOD SPECIMENOrdering Facility: [facility] Address: [address] [place] [address] Performed By: #### 5 7021-8 ####[facility] LABORATORYCLIA [id number] [place] [address] [place] Eosinophils/100 WBC (Bld) 1.7 % Normal [facility] Comment on above: Order Comment: Speci men Type: BLOOD SPECIMENOrdering Facility: [facility] Address: [address] [place] [address] Performed By: #### 5 7021-8 ####[facility] LABORATORYCLIA [id number] [place] [address] [place] Erythrocyte distribution width (RBC) [Ratio] 11.9 % Normal 11.5-15.0 [facility] Comment on above: Order Comment: Speci men Type: BLOOD SPECIMENOrdering Facility: [facility] Address: [address] [place] [address] Performed By: #### 5 7021-8 ####[facility] LABORATORYCLIA [id number] [place] [id number] [place] Hematocrit (Bld) [Volume fraction] 39.6 % Normal 39.0-51.0 [facility] Comment on above: Order Comment: Speci men Type: BLOOD SPECIMENOrdering Facility: [facility] Address: [address] [place] [address] Performed By: #### 5 7021-8 ####[facility] LABORATORYCLIA [id number] [place] [id number] [place] Hemoglobin (Bld) [Mass/Vol] 13.7 g/dL Normal 13.0-17.0 [facility] Comment on above: Order Comment: Speci men Type: BLOOD SPECIMENOrdering Facility: [facility] Address: [address] [place] [address] Performed By: #### 5 7021-8 ####[facility] LABORATORYCLIA [id number] [place] [address] [place] Immature granulocytes (Bld) [#/Vol] 0.06 10*3/uL Normal <0.10 [facility] Comment on above: Order Comment: Speci men Type: BLOOD SPECIMENOrdering Facility: [facility] Address: [address] [place] [address] Performed By: #### 5 7021-8 ####[facility] LABORATORYCLIA [id number] [place] [id number] [place] Immature granulocytes/100 WBC (Bld) 0.7 % Normal [facility] Comment on above: Order Comment: Speci men Type: BLOOD SPECIMENOrdering Facility: [facility] Address: [address] [place] [address] Performed By: #### 5 7021-8 ####[facility] LABORATORYCLIA [id number] [place] [address] [place] Lymphocytes (Bld) [#/Vol] 1.02 10*3/uL Normal 1.00-4.00 [facility] Comment on above: Order Comment: Speci men Type: BLOOD SPECIMENOrdering Facility: [facility] Address: [address] [place] [address] Performed By: #### 5 7021-8 ####[facility] LABORATORYCLIA [id number] [place] [address] [place] Lymphocytes/100 WBC (Bld) 12.1 % Normal [facility] Comment on above: Order Comment: Speci men Type: BLOOD SPECIMENOrdering Facility: [facility] Address: [address] [place] [address] Performed By: #### 5 7021-8 ####[facility] LABORATORYCLIA [id number] [place] [address] [place] MCH (RBC) [Entitic mass] 29.9 pg Normal 26.0-34.0 [facility] Comment on above: Order Comment: Speci men Type: BLOOD SPECIMENOrdering Facility: [facility] Address: [address] [place] [address] Performed By: #### 5 7021-8 ####[facility] LABORATORYCLIA [id number] [place] [address] [place] MCHC (RBC) [Mass/Vol] 34.6 g/dL Normal 30.5-36.0 [facility] Comment on above: Order Comment: Speci men Type: BLOOD SPECIMENOrdering Facility: [facility] Address: [address] [place] [address] Performed By: #### 5 7021-8 ####[facility] LABORATORYCLIA [id number] [place] [address] [place] MCV (RBC) [Entitic vol] 86.5 fL Normal 80.0-100.0 [facility] Comment on above: Order Comment: Speci men Type: BLOOD SPECIMENOrdering Facility: [facility] Address: [address] [place] [address] Performed By: #### 5 7021-8 ####[facility] LABORATORYCLIA [id number] [place] [address] [place] Monocytes (Bld) [#/Vol] 0.78 10*3/uL Normal <0.87 [facility] Comment on above: Order Comment: Speci men Type: BLOOD SPECIMENOrdering Facility: [facility] Address: [address] [place] [address] Performed By: #### 5 7021-8 ####[facility] LABORATORYCLIA [id number] [place] [id number] [place] Monocytes/100 WBC (Bld) 9.3 % Normal [facility] Comment on above: Order Comment: Speci men Type: BLOOD SPECIMENOrdering Facility: [facility] Address: [address] [place] [address] Performed By: #### 5 7021-8 ####[facility] LABORATORYCLIA [id number] [place] [address] [place] Neutrophils (Bld) [#/Vol] 6.37 10*3/uL Normal 1.45-7.50 [facility] Comment on above: Order Comment: Speci men Type: BLOOD SPECIMENOrdering Facility: [facility] Address: [address] [place] [address] Performed By: #### 5 7021-8 ####[facility] LABORATORYCLIA [id number] [place] [address] [place] Neutrophils/100 WBC (Bld) 75.5 % Normal [facility] Comment on above: Order Comment: Speci men Type: BLOOD SPECIMENOrdering Facility: [facility] Address: [address] [place] [address] Performed By: #### 5 7021-8 ####[facility] LABORATORYCLIA [id number] [place] [id number] [place] Nucleated RBC (Bld) [#/Vol] 10*3/uL Normal <0.01 [facility] Comment on above: Order Comment: Speci men Type: BLOOD SPECIMENOrdering Facility: [facility] Address: [address] [place] [address] Performed By: #### 5 7021-8 ####GE[facility] LABORATORYCLIA [id number] [place] [id number] [place] Nucleated RBC/100 WBC (Bld) [Ratio] 0.0 /100 WBC Normal [facility] Comment on above: Order Comment: Speci men Type: BLOOD SPECIMENOrdering Facility: [facility] Address: [address] [place] [address] Performed By: #### 5 7021-8 ####GE[facility] LABORATORYCLIA [id number] [place] [id number] [place] Platelet mean volume (Bld) [Entitic vol] 11.3 fL Normal 9.0-12.7 [facility] Comment on above: Order Comment: Speci men Type: BLOOD SPECIMENOrdering Facility: [facility] Address: [address] [place] [address] Performed By: #### 5 7021-8 ####GE[facility] LABORATORYCLIA [id number] [place] [id number] [place] Platelets (Bld) [#/Vol] 320 10*3/uL Normal 150-400 [facility] Comment on above: Order Comment: Speci men Type: BLOOD SPECIMENOrdering Facility: [facility] Address: [address] [place] [address] Performed By: #### 5 7021-8 ####[facility] LABORATORYCLIA [id number] [place] [id number] [place] RBC (Bld) [#/Vol] 4.58 10*6/uL Normal 4.20-6.00 [facility] Comment on above: Order Comment: Speci men Type: BLOOD SPECIMENOrdering Facility: [facility] Address: [address] [place] [address] Performed By: #### 5 7021-8 ####GE[facility] LABORATORYCLIA [id number] [place] [id number] [place] WBC (Bld) [#/Vol] 8.43 10*3/uL Normal 3.70-11.00 [facility] Comment on above: Order Comment: Speci men Type: BLOOD SPECIMENOrdering Facility: [facility] Address: [address] [place] [address] Performed By: #### 5 7021-8 ####[place] LABORATORYCLIA [id number] [place] [address] [place] CONSULTon 08-08-2023 CONSULT Normal [facility] CT PANCREAS/PELVIS W IVCONon 08-08-2023 CT PANCREAS/PELVIS W IVCON Normal [facility] Comprehensive metabolic 2000 panelon 08-08-2023 Albumin [Mass/Vol] 4.5 g/dL Normal 3.9-4.9 [facility] Comment on above: Order Comment: Speci men Type: BLOOD SPECIMENOrdering Facility: [facility] Address: [address] [place] [address] Performed By: #### 2 777-1, 64424-1, ####[facility] LABORATORYCLIA [id number] [place] [id number] [place] ALP [Catalytic activity/Vol] 114 U/L High 38-113 [facility] Comment on above: Order Comment: Speci men Type: BLOOD SPECIMENOrdering Facility: [facility] Address: [address] [place] [address] Performed By: #### 2 777-1, , ####[place] LABORATORYCLIA [id number] [place] [id number] [place] ALT [Catalytic activity/Vol] 30 U/L Normal 10-54 [facility] Comment on above: Order Comment: Speci men Type: BLOOD SPECIMENOrdering Facility: [facility] Address: [address] [place] [address] Performed By: #### 2 777-1, , ####[place] LABORATORYCLIA [id number] [place] [address] [place] Anion gap [Moles/Vol] 17 mmol/L Normal 9-18 [facility] Comment on above: Order Comment: Speci men Type: BLOOD SPECIMENOrdering Facility: [facility] Address: [address] [place] [address] Performed By: #### 2 777-1, 31836-7, ####[place] LABORATORYCLIA [id number] [place] [address] [place] AST [Catalytic activity/Vol] 27 U/L Normal 14-40 [facility] Comment on above: Order Comment: Speci men Type: BLOOD SPECIMENOrdering Facility: [facility] Address: [place] [address] Performed By: #### 2 777-1, , ####[facility] LABORATORYCLIA [id number] [place] [id number] [place] Bilirubin [Mass/Vol] 0.5 mg/dL Normal 0.2-1.3 [facility] Comment on above: Order Comment: Speci men Type: BLOOD SPECIMENOrdering Facility: [facility] Address: [place] [address] Performed By: #### 2 777-1, , ####[facility] LABORATORYCLIA [id number] [place] [address] [place] Calcium [Mass/Vol] 9.7 mg/dL Normal 8.5-10.2 [facility] Comment on above: Order Comment: Speci men Type: BLOOD SPECIMENOrdering Facility: [facility] Address: [address] [place] [address] Performed By: #### 2 777-1, , ####GE[facility] LABORATORYCLIA [id number] [place] [id number] [place] Chloride [Moles/Vol] 102 mmol/L Normal 97-105 [facility] Comment on above: Order Comment: Speci men Type: BLOOD SPECIMENOrdering Facility: [facility] Address: [address] [place] [address] Performed By: #### 2 777-1, , ####[facility] LABORATORYCLIA [id number] [place] [id number] [place] CO2 [Moles/Vol] 18 mmol/L Low 22-30 [facility] Comment on above: Order Comment: Speci men Type: BLOOD SPECIMENOrdering Facility: [facility] Address: [address] [place] [address] Performed By: #### 2 777-1, 97386-1, ####[place] LABORATORYCLIA [id number] [place] [address] [place] Creatinine [Mass/Vol] 1.86 mg/dL High 0.73-1.22 [facility] Comment on above: Order Comment: Specbrooks suarez Type: BLOOD SPECIMENOrdering Facility: [facility] Address: [address] [place] [place] [id number] Performed By: #### 2 777-1, 92863-3, ####[place] LABORATORYCLIA [id number] [place] [id number] [place] Creatinine and Glomerular filtration rate.predicted panel (S/P/Bld) 39 mL/min/1.73m??? Low >=60 [facility] Comment on above: Order Comment: Arben suarez Type: BLOOD SPECIMENOrdering Facility: [facility] Address: [address] [place] [address] Result Comment: Bailey mated Glomerular Filtration Rate [...] actual GFR. Performed By: #### 2 777-1, 77615-9, ####[place] LABORATORYCLIA [id number] [place] [id number] [place] Glucose [Mass/Vol] 87 mg/dL Normal 74-99 [facility] Comment on above: Order Comment: Demarcusi men Type: BLOOD SPECIMENOrdering Facility: [facility] Address: [address] [place] [address] Result Comment: The [place] [employer] (ADA) provides guidance for cutoff [...] Standards of Medical Care in Diabetes 2016, [place] [employer]. Diabetes Care. 2016.39(Suppl 1). Performed By: #### 2 777-1, , ####[facility] LABORATORYCLIA [id number] [place] [id number] [place] Potassium [Moles/Vol] 4.2 mmol/L Normal 3.7-5.1 [facility] Comment on above: Order Comment: Arben suarez Type: BLOOD SPECIMENOrdering Facility: [facility] Address: [address] [place] [address] Performed By: #### 2 777-1, , ####[facility] LABORATORYCLIA [id number] [place] [id number] [place] Protein [Mass/Vol] 7.6 g/dL Normal 6.3-8.0 [facility] Comment on above: Order Comment: Demarcusi daniela Type: BLOOD SPECIMENOrdering Facility: [facility] Address: [address] [place] [address] Performed By: #### 2 777-1, , ####[facility] LABORATORYCLIA [id number] [place] [id number] [place] Sodium [Moles/Vol] 137 mmol/L Normal 136-144 [facility] Comment on above: Order Comment: Speci men Type: BLOOD SPECIMENOrdering Facility: [facility] Address: [address] [place] [address] Performed By: #### 2 777-1, , ####[facility] LABORATORYCLIA [id number] [place] [address] [place] Urea nitrogen [Mass/Vol] 33 mg/dL High 9-24 [facility] Comment on above: Order Comment: Speci men Type: BLOOD SPECIMENOrdering Facility: [facility] Address: [place] [address] Performed By: #### 2 777-1, 84154-1, ####[facility] LABORATORYCLIA [id number] [place] [address] [place] ECG COMPLETEon 08-08-2023 ECG COMPLETE Normal [facility] Magnesium [Mass/Vol] 2.2 mg/dL Normal 1.7-2.3 [facility] Comment on above: Order Comment: Speci men Type: BLOOD SPECIMENOrdering Facility: [facility] Address: [place] [address] Performed By: #### 2 777-1, 82733-3, ####[facility] LABORATORYCLIA [id number] [place] [id number] [place] NUTRITIONon 08-08-2023 NUTRITION Normal [facility] NUTRITION Normal [facility]ate [facility] Phosphate [Mass/Vol] 3.4 mg/dL Normal 2.7-4.8 [facility] Comment on above: Order Comment: Speci men Type: BLOOD SPECIMENOrdering Facility: [facility] Address: [address] [place] [address] Performed By: #### 2 777-1, 63365-3, ####[facility] LABORATORYCLIA [id number] [place] [id number] [place] THERAPY NTon 08-08-2023 THERAPY NT Normal [facility] Urinalysis complete panel (U )on 08-08-2023 Bilirubin Ql (U) Negative Normal Negative [facility] Comment on above: Order Comment: Speci men Type: URINE SPECIMENOrdering Facility: [facility] Address: [address] [place] [address] Performed By: #### 2 4356-8 ####[facility] LABORATORYCLIA [id number] [place] [id number] [place] Clarity (Unsp spec) Clear Normal Clear [facility] Comment on above: Order Comment: Speci men Type: URINE SPECIMENOrdering Facility: [facility] Address: [address] [place] [address] Performed By: #### 2 4356-8 ####[facility] LABORATORYCLIA [id number] [place] [address] [place] Color (U) Light Yellow Normal Yellow [facility] Comment on above: Order Comment: Speci men Type: URINE SPECIMENOrdering Facility: [facility] Address: [address] [place] [address] Performed By: #### 2 4356-8 ####[facility] LABORATORYCLIA [id number] [place] [address] [place] Glucose Test strip (U) [Mass/Vol] Negative Normal Trace, Negative [facility] Comment on above: Order Comment: Speci men Type: URINE SPECIMENOrdering Facility: [facility] Address: [address] [place] [address] Performed By: #### 2 4356-8 ####[facility] LABORATORYCLIA [id number] [place] [address] [place] Hemoglobin Ql (U) Negative Normal Negative, Trace [facility] Comment on above: Order Comment: Speci men Type: URINE SPECIMENOrdering Facility: [facility] Address: [address] [place] [address] Performed By: #### 2 4356-8 ####[facility] LABORATORYCLIA [id number] [place] [address] [place] Hyaline casts (Urine sed) [#/Area] 4-10 /LPF Abnormal 0 /LPF [facility] Comment on above: Order Comment: Speci men Type: URINE SPECIMENOrdering Facility: [facility] Address: [address] [place] [address] Performed By: #### 2 4356-8 ####[facility] LABORATORYCLIA [id number] [place] [address] [place] Ketones Ql (U) Trace Normal Negative, Trace [facility] Comment on above: Order Comment: Speci men Type: URINE SPECIMENOrdering Facility: [facility] Address: [address] [place] [address] Performed By: #### 2 4356-8 ####[place] LABORATORYCLIA [id number] [address] [place] Leukocyte esterase Test strip Ql (U) Negative Normal Negative, 25 Angle/uL [facility] Comment on above: Order Comment: Speci men Type: URINE SPECIMENOrdering Facility: [facility] Address: [address] [place] [address] Performed By: #### 2 4356-8 ####[facility] LABORATORYCLIA [id number] [place] [address] [place] Nitrite Ql (U) Negative Normal Negative [facility] Comment on above: Order Comment: Speci men Type: URINE SPECIMENOrdering Facility: [facility] Address: [address] [place] [address] Performed By: #### 2 4356-8 ####[facility] LABORATORYCLIA [id number] [place] [address] [place] pH (U) 6.5 [pH] Normal 5.0-8.0 [facility] Comment on above: Order Comment: Speci men Type: URINE SPECIMENOrdering Facility: [facility] Address: [address] [place] [address] Performed By: #### 2 4356-8 ####[facility] LABORATORYCLIA [id number] [place] [address] [place] Protein (U) [Mass/Vol] 1+ Abnormal Trace, Negative [facility] Comment on above: Order Comment: Speci men Type: URINE SPECIMENOrdering Facility: [facility] Address: [address] [place] [address] Performed By: #### 2 4356-8 ####[place] LABORATORYCLIA [id number] [place] [address] [place] RBC LM.HPF (Urine sed) [#/Area] 0-3 /HPF Normal 0-3 /HPF [facility] Comment on above: Order Comment: Speci men Type: URINE SPECIMENOrdering Facility: [facility] Address: [address] [place] [address] Performed By: #### 2 4356-8 ####[place] LABORATORYCLIA [id number] [place] [id number] [place] Specific gravity (U) [Rel density] >1.050 High 1.005-1.03 0 [facility] Comment on above: Order Comment: Speci men Type: URINE SPECIMENOrdering Facility: [facility] Address: [address] [place] [address] Performed By: #### 2 4356-8 ####[place] LABORATORYCLIA [id number] [place] [address] [place] Urobilinogen Ql (U) Negative Normal Negative [facility] Comment on above: Order Comment: Speci men Type: URINE SPECIMENOrdering Facility: [facility] Address: [address] [place] [address] Performed By: #### 2 4356-8 ####[place] LABORATORYCLIA [id number] [place] [address] [place] WBC LM.HPF (Urine sed) [#/Area] 0-5 /HPF Normal 0-5 /HPF [facility] Comment on above: Order Comment: Speci men Type: URINE SPECIMENOrdering Facility: [facility] Address: [address] [place] [address] Performed By: #### 2 4356-8 ####[place] LABORATORYCLIA [id number] [place] [id number] [place] ALLIED HEALTHon 08-07-2023 ALLIED HEALTH Normal [facility] CBC W Auto Differential pane l (Bld)on 08-07-2023 Basophils (Bld) [#/Vol] 0.06 10*3/uL Normal <0.11 [facility] Comment on above: Order Comment: Speci men Type: BLOOD SPECIMENOrdering Facility: [facility] Address: [address] [place] [address] Performed By: #### 5 7021-8 ####[place] LABORATORYCLIA [id number] [place] [address] [place] Basophils/100 WBC (Bld) 0.6 % Normal [facility] Comment on above: Order Comment: Speci men Type: BLOOD SPECIMENOrdering Facility: [facility] Address: [address] [place] [address] Performed By: #### 5 7021-8 ####[facility] LABORATORYCLIA [id number] [place] [address] [place] Differential cell count method Nom (Bld) Auto Normal [facility] Comment on above: Order Comment: Speci men Type: BLOOD SPECIMENOrdering Facility: [facility] Address: [address] [place] [address] Performed By: #### 5 7021-8 ####[facility] LABORATORYCLIA [id number] [place] [address] [place] Eosinophils (Bld) [#/Vol] 0.08 10*3/uL Normal <0.46 [facility] Comment on above: Order Comment: Speci men Type: BLOOD SPECIMENOrdering Facility: [facility] Address: [address] [place] [address] Performed By: #### 5 7021-8 ####[facility] LABORATORYCLIA [id number] [address] [place] Eosinophils/100 WBC (Bld) 0.8 % Normal [facility] Comment on above: Order Comment: Speci men Type: BLOOD SPECIMENOrdering Facility: [facility] Address: [address] [place] [address] Performed By: #### 5 7021-8 ####[facility] LABORATORYCLIA [id number] [address] [place] Erythrocyte distribution width (RBC) [Ratio] 11.9 % Normal 11.5-15.0 [facility] Comment on above: Order Comment: Speci men Type: BLOOD SPECIMENOrdering Facility: [facility] Address: [address] [place] [address] Performed By: #### 5 7021-8 ####[facility] LABORATORYCLIA [id number] [place] [address] [place] Hematocrit (Bld) [Volume fraction] 43.6 % Normal 39.0-51.0 [facility] Comment on above: Order Comment: Speci men Type: BLOOD SPECIMENOrdering Facility: [facility] Address: [address] [place] [address] Performed By: #### 5 7021-8 ####[facility] LABORATORYCLIA [id number] [place] [id number] [place] Hemoglobin (Bld) [Mass/Vol] 14.9 g/dL Normal 13.0-17.0 [facility] Comment on above: Order Comment: Speci men Type: BLOOD SPECIMENOrdering Facility: [facility] Address: [address] [place] [address] Performed By: #### 5 7021-8 ####[facility] LABORATORYCLIA [id number] [place] [address] [place] Immature granulocytes (Bld) [#/Vol] 0.10 10*3/uL High <0.10 [facility] Comment on above: Order Comment: Speci men Type: BLOOD SPECIMENOrdering Facility: [facility] Address: [address] [place] [address] Performed By: #### 5 7021-8 ####[facility] LABORATORYCLIA [id number] [place] [id number] [place] Immature granulocytes/100 WBC (Bld) 1.0 % Normal [facility] Comment on above: Order Comment: Speci men Type: BLOOD SPECIMENOrdering Facility: [facility] Address: [address] [place] [address] Performed By: #### 5 7021-8 ####[facility] LABORATORYCLIA [id number] [place] [id number] [place] Lymphocytes (Bld) [#/Vol] 1.20 10*3/uL Normal 1.00-4.00 [facility] Comment on above: Order Comment: Speci men Type: BLOOD SPECIMENOrdering Facility: [facility] Address: [address] [place] [address] Performed By: #### 5 7021-8 ####[facility] LABORATORYCLIA [id number] [place] [id number] [place] Lymphocytes/100 WBC (Bld) 12.1 % Normal [facility] Comment on above: Order Comment: Speci men Type: BLOOD SPECIMENOrdering Facility: [facility] Address: [address] [place] [address] Performed By: #### 5 7021-8 ####[facility] LABORATORYCLIA [id number] [place] [address] [place] MCH (RBC) [Entitic mass] 29.4 pg Normal 26.0-34.0 [facility] Comment on above: Order Comment: Speci men Type: BLOOD SPECIMENOrdering Facility: [facility] Address: [address] [place] [address] Performed By: #### 5 7021-8 ####[facility] LABORATORYCLIA [id number] [place] [address] [place] MCHC (RBC) [Mass/Vol] 34.2 g/dL Normal 30.5-36.0 [facility] Comment on above: Order Comment: Speci men Type: BLOOD SPECIMENOrdering Facility: [facility] Address: [address] [place] [address] Performed By: #### 5 7021-8 ####[facility] LABORATORYCLIA [id number] [place] [address] [place] MCV (RBC) [Entitic vol] 86.0 fL Normal 80.0-100.0 [facility] Comment on above: Order Comment: Speci men Type: BLOOD SPECIMENOrdering Facility: [facility] Address: [address] [place] [address] Performed By: #### 5 7021-8 ####[facility] LABORATORYCLIA [id number] [place] [address] [place] Monocytes (Bld) [#/Vol] 0.97 10*3/uL High <0.87 [facility] Comment on above: Order Comment: Speci men Type: BLOOD SPECIMENOrdering Facility: [facility] Address: [address] [place] [address] Performed By: #### 5 7021-8 ####[facility] LABORATORYCLIA [id number] [place] [address] [place] Monocytes/100 WBC (Bld) 9.7 % Normal [facility] Comment on above: Order Comment: Speci men Type: BLOOD SPECIMENOrdering Facility: [facility] Address: [address] [place] [address] Performed By: #### 5 7021-8 ####[facility] LABORATORYCLIA [id number] [place] [address] [place] Neutrophils (Bld) [#/Vol] 7.54 10*3/uL High 1.45-7.50 [facility] Comment on above: Order Comment: Speci men Type: BLOOD SPECIMENOrdering Facility: [facility] Address: [address] [place] [address] Performed By: #### 5 7021-8 ####[facility] LABORATORYCLIA [id number] [place] [address] [place] Neutrophils/100 WBC (Bld) 75.8 % Normal [facility] Comment on above: Order Comment: Speci men Type: BLOOD SPECIMENOrdering Facility: [facility] Address: [address] [place] [address] Performed By: #### 5 7021-8 ####[facility] LABORATORYCLIA [id number] [place] [address] [place] Nucleated RBC (Bld) [#/Vol] 10*3/uL Normal <0.01 [facility] Comment on above: Order Comment: Speci men Type: BLOOD SPECIMENOrdering Facility: [facility] Address: [address] [place] [address] Performed By: #### 5 7021-8 ####[facility] LABORATORYCLIA [id number] [place] [id number] [place] Nucleated RBC/100 WBC (Bld) [Ratio] 0.0 /100 WBC Normal [facility] Comment on above: Order Comment: Speci men Type: BLOOD SPECIMENOrdering Facility: [facility] Address: [address] [place] [address] Performed By: #### 5 7021-8 ####[facility] LABORATORYCLIA [id number] [place] [address] [place] Platelet mean volume (Bld) [Entitic vol] 11.6 fL Normal 9.0-12.7 [facility] Comment on above: Order Comment: Speci men Type: BLOOD SPECIMENOrdering Facility: [facility] Address: [address] [place] [address] Performed By: #### 5 7021-8 ####[facility] LABORATORYCLIA [id number] [place] [address] [place] Platelets (Bld) [#/Vol] 374 10*3/uL Normal 150-400 [facility] Comment on above: Order Comment: Speci men Type: BLOOD SPECIMENOrdering Facility: [facility] Address: [address] [place] [address] Performed By: #### 5 7021-8 ####[facility] LABORATORYCLIA [id number] [place] [address] [place] RBC (Bld) [#/Vol] 5.07 10*6/uL Normal 4.20-6.00 [facility] Comment on above: Order Comment: Speci men Type: BLOOD SPECIMENOrdering Facility: [facility] Address: [address] [place] [address] Performed By: #### 5 7021-8 ####[facility] LABORATORYCLIA [id number] [place] [id number] [place] WBC (Bld) [#/Vol] 9.95 10*3/uL Normal 3.70-11.00 [facility] Comment on above: Order Comment: Speci men Type: BLOOD SPECIMENOrdering Facility: [facility] Address: [address] [place] [address] Performed By: #### 5 7021-8 ####[facility] LABORATORYCLIA [id number] [place] [address] [facility] [place] CNOVon 08-07-2023 CNOV Office Visit (GENNOM ) -- AISHA JULIEN ([id number]) 1955 M Date Time Provider Department 08/07/23 [...] and gum (more content not included)... Normal [facility] CRP SerPl-mCncon 08-07-2023 CRP [Mass/Vol] mg/L Normal <0.9 [facility] Comment on above: Order Comment: Speci men Type: BLOOD SPECIMENOrdering Facility: [facility] Address: [address] [place] [address] Performed By: #### 2 276-4, 1987-12 ####[place] LABORATORYCLIA [id number] [place] [address] [place] Comprehensive metabolic 2000 panelon 08-07-2023 Albumin [Mass/Vol] 4.6 g/dL Normal 3.9-4.9 [facility] Comment on above: Order Comment: Speci men Type: BLOOD SPECIMENOrdering Facility: [facility] Address: [address] [place] [address] Performed By: #### 3 040-3, , ####[place] LABORATORYCLIA [id number] [place] [address] [place] ALP [Catalytic activity/Vol] 127 U/L High 38-113 [facility] Comment on above: Order Comment: Speci men Type: BLOOD SPECIMENOrdering Facility: [facility] Address: [address] [place] [address] Performed By: #### 3 040-3, , ####[place] LABORATORYCLIA [id number] [place] [address] [place] ALT [Catalytic activity/Vol] 35 U/L Normal 10-54 [facility] Comment on above: Order Comment: Speci men Type: BLOOD SPECIMENOrdering Facility: [facility] Address: [address] [place] [address] Performed By: #### 3 040-3, , ####[place] LABORATORYCLIA [id number] [place] [address] [place] Anion gap [Moles/Vol] 18 mmol/L Normal 9-18 [facility] Comment on above: Order Comment: Speci men Type: BLOOD SPECIMENOrdering Facility: [facility] Address: [place] [address] Performed By: #### 3 040-3, , ####[facility] LABORATORYCLIA [id number] [place] [id number] [place] AST [Catalytic activity/Vol] 30 U/L Normal 14-40 [facility] Comment on above: Order Comment: Speci men Type: BLOOD SPECIMENOrdering Facility: [facility] Address: [place] [address] Performed By: #### 3 040-3, , ####[facility] LABORATORYCLIA [id number] [place] [address] [place] Bilirubin [Mass/Vol] 0.5 mg/dL Normal 0.2-1.3 [facility] Comment on above: Order Comment: Speci men Type: BLOOD SPECIMENOrdering Facility: [facility] Address: [place] [address] Performed By: #### 3 040-3, , ####[facility] LABORATORYCLIA [id number] [place] [address] [place] Calcium [Mass/Vol] 9.9 mg/dL Normal 8.5-10.2 [facility] Comment on above: Order Comment: Speci men Type: BLOOD SPECIMENOrdering Facility: [facility] Address: [address] [place] [address] Performed By: #### 3 040-3, , ####[facility] LABORATORYCLIA [id number] [place] [address] [place] Chloride [Moles/Vol] 93 mmol/L Low 97-105 [facility] Comment on above: Order Comment: Speci men Type: BLOOD SPECIMENOrdering Facility: [facility] Address: [address] [place] [address] Performed By: #### 3 040-3, , ####[place] LABORATORYCLIA [id number] [place] [address] [place] CO2 [Moles/Vol] 19 mmol/L Low 22-30 [facility] Comment on above: Order Comment: Speci men Type: BLOOD SPECIMENOrdering Facility: [facility] Address: [address] [place] [address] Performed By: #### 3 040-3, , ####[place] LABORATORYCLIA [id number] [place] [id number] [place] Creatinine [Mass/Vol] 2.20 mg/dL High 0.73-1.22 [facility] Comment on above: Order Comment: Speci men Type: BLOOD SPECIMENOrdering Facility: [facility] Address: [address] [place] [address] Performed By: #### 3 040-3, , ####[place] LABORATORYCLIA [id number] [place] [address] [place] Creatinine and Glomerular filtration rate.predicted panel (S/P/Bld) 32 mL/min/1.73m??? Low >=60 [facility] Comment on above: Order Comment: Speci men Type: BLOOD SPECIMENOrdering Facility: [facility] Address: [address] [place] [address] Result Comment: Bailey mated Glomerular Filtration Rate [...] actual GFR. Performed By: #### 3 040-3, , ####[place] LABORATORYCLIA [id number] [place] [address] [place] Glucose [Mass/Vol] 108 mg/dL High 74-99 [facility] Comment on above: Order Comment: Speci men Type: BLOOD SPECIMENOrdering Facility: [facility] Address: [address] [place] [address] Result Comment: The [place] [employer] (ADA) provides guidance for cutoff [...] Standards of Medical Care in Diabetes 2016, [place] [employer]. Diabetes Care. 2016.39(Suppl 1). Performed By: #### 3 040-3, , ####[facility] LABORATORYCLIA [id number] [place] [id number] [place] Potassium [Moles/Vol] 3.7 mmol/L Normal 3.7-5.1 [facility] Comment on above: Order Comment: Arben daniela Type: BLOOD SPECIMENOrdering Facility: [facility] Address: [address] [place] [address] Performed By: #### 3 040-3, , ####[facility] LABORATORYCLIA [id number] [place] [address] [place] Protein [Mass/Vol] 8.4 g/dL High 6.3-8.0 [facility] Comment on above: Order Comment: [facility] Type: BLOOD SPECIMENOrdering Facility: [facility] Address: [address] [place] [address] Performed By: #### 3 040-3, , ####[facility] LABORATORYCLIA [id number] [place] [address] [place] Sodium [Moles/Vol] 130 mmol/L Low 136-144 [facility] Comment on above: Order Comment: Speci men Type: BLOOD SPECIMENOrdering Facility: [facility] Address: [address] [facility] [place] [address] Performed By: #### 3 040-3, , ####[facility] LABORATORYCLIA [id number] [place] [address] [place] [facility] Urea nitrogen [Mass/Vol] 37 mg/dL High 9-24 [facility] Comment on above: Order Comment: Speci men Type: BLOOD SPECIMENOrdering Facility: [facility] Address: [place] [address] Performed By: #### 3 040-3, , ####[facility] LABORATORYCLIA [id number] [place] [id number] [facility] [place] ED PROV NOTEon 08-07-2023 ED PROV NOTE Normal [facility] ED Triage Noteon 08-07-2023 ED Triage Note Normal [facility] Ferritin SerPl-mCncon 2022 Ferritin [Mass/Vol] 723.9 ng/mL High 30.3-565.7 [facility] Comment on above: Order Comment: Speci men Type: BLOOD SPECIMENOrdering Facility: [facility] Address: [place] [address] Performed By: #### 2 276-4, 1987-12 ####[facility] LABORATORYCLIA [id number] [place] [id number] [facility] HISTORY PHYSICALon HISTORY PHYSICAL Normal [facility] HISTORY PHYSICAL HNO ID: [id number] Author: Cleveland Alberts MD Service: ? Author [...] He received an upper endoscopy by Dr. Asaad and was found to have extrinsic compression [...] normal and (more content not included)... Normal [facility] Lipase SerPl-cCncon 08-07-20 23 Lipase [Catalytic activity/Vol] 154 U/L High 16-61 [facility] Comment on above: Order Comment: Speci men Type: BLOOD SPECIMENOrdering Facility: [facility] Address: [address] [place] [address] Performed By: #### 3 040-3, 89437-7, 84946-2 ####[place] LABORATORYCLIA [id number] [place] [address] [place] Magnesium SerPl-[facility] 08-07 Magnesium [Mass/Vol] 1.6 mg/dL Low 1.7-2.3 [facility] Comment on above: Order Comment: Arben suarez Type: BLOOD SPECIMENOrdering Facility: [facility] Address: [address] [place] [address] Performed By: #### 3 040-3, 86514-6, 44148-2 ####[facility] LABORATORYCLIA [id number] [place] [id number] [place] PT panel Coag (PPP)on 2022 INR Coag (PPP) [Relative time] 1.0 {INR} Normal 0.9-1.3 [facility] Comment on above: Order Comment: Arben suarez Type: BLOOD SPECIMENOrdering Facility: [facility] Address: [address] [place] [address] Result Comment: Karissa min K Antagonist (VKA) Therapeutic Range: INR 2 to 3 (Target INR of 2.5)Note: For patients treated with VKA drugs, such as warfarin, the [place] [employer] 2012 Guideline recommends [...] of 3).Lizy WATSON, et al. Chest 2012, 141:7S-47SNishimpavel RA, et al. JACC 2017, 70: 252-289 Performed By: #### 3 4528-0, 67892-3 ####[facility] LABORATORYCLIA [id number] [place] [address] [place] PT Coag (PPP) [Time] 11.6 s Normal 9.7-13.0 [facility] Comment on above: Order Comment: Arben suarez Type: BLOOD SPECIMENOrdering Facility: [facility] Address: [address] [place] [address] Performed By: #### 3 4528-0, 50312-4 ####[facility] LABORATORYCLIA [id number] [place] [address] [place] Prealb SerPl-mCncon 08-07-20 23 Prealbumin [Mass/Vol] 18 mg/dL Normal 17-36 [facility] Comment on above: Order Comment: Speci men Type: BLOOD SPECIMENOrdering Facility: [facility] Address: [address] [place] [address] Performed By: #### 3 034-6, 86366-5 ####[facility] LABCLIA [id number] [place] [address] [place] TYPE + SCREENon 08-07-2023 ABO A [facility] Comment on above: Order Comment: Speci men Type: BLOOD SPECIMENOrdering Facility: [facility] Address: [address] [place] [address] Performed By: #### T SCR ####[facility] BLOOD BANKCLIA [id number] [place] [address] [place] HISTORICAL AB SCR STATUS Negative [facility] Comment on above: Order Comment: Speci men Type: BLOOD SPECIMENOrdering Facility: [facility] Address: [address] [place] [address] Performed By: #### T SCR ####[facility] BLOOD BANKCLIA [id number] [place] [address] [place] Rh Nom (Bld) Positive [facility] Comment on above: Order Comment: Speci men Type: BLOOD SPECIMENOrdering Facility: [facility] Address: [address] [place] [address] Performed By: #### T SCR ####[facility] BLOOD BANKCLIA [id number] [place] [address] [place] TYPE AND SCREEN EXPIRATION 08/10/2023 23:59 Normal [facility] Comment on above: Order Comment: Speci men Type: BLOOD SPECIMENOrdering Facility: [facility] Address: [place] [address] Performed By: #### T SCR ####[place] BLOOD BANKCLIA [id number] [place] [address] [place] Transferrin SerPl-mCncon Transferrin [Mass/Vol] 250 mg/dL Normal 200-360 [facility] Comment on above: Order Comment: Speci men Type: BLOOD SPECIMENOrdering Facility: [facility] Address: [place] [address] Performed By: #### 3 034-6, 46382-5 ####[facility] LABCLIA [id number] [facility] [id number] [place] [address] [place] XR ABDOMEN 1V SUPINEon 08-07 XR ABDOMEN 1V SUPINE Normal [facility] aPTT PPPon 08-07-2023 aPTT Coag (PPP) [Time] 29.9 s Normal 23.0-32.4 [facility] Comment on above: Order Comment: Speci men Type: BLOOD SPECIMENOrdering Facility: [facility] Address: [place] [address] Performed By: #### 3 4528-0, 79866-0 ####[place] LABORATORYCLIA [id number] [address] [place] CNPAisha 08-05-2023 [place]OCK[place] Telephone (PATRICIA) -- AISHA JULIEN ([id number]) 1955 M Date Time Provider Department 08/05/23 BETY AMIN During your visit today, we recorded the following information about you: Ирина Samuel RN 08/05/2023 4:35 PM Signed Referred from Dr. Linder for EUS w/ FNA for duodenal mass. Dr. Brennan please review and advise. H AND P, [...] control regim (more content not included)... Normal [facility] Telephone ([id number]) -- AISHA JULIEN ([id number]) 1955 M Date Time Provider Department 08/05/23 [place] [id number] During your visit today, we recorded the [...] appointment. *Requested images to be pushed from [employer] 08/05. Also faxed release of information to patients PCP - Dr. Cannon in [facility]. Allergies As of Date: 08/05/2023 (No [...] Encounter Status:Closed by JESSIE ZAMORA on 08/05/23 [facility] Judy 07-29-2023 CNPN Telephone ([id number]) -- AISHA JULIEN ([id number]) 1955 M Date Time Provider Department 07/29/23 [place] [id number] During your visit today, we recorded the following information about you: Vicki Rosario 07/29/2023 3:53 PM Addendum New patient referral from Dr. Linder's office ([phone]) to Dr[address] Alberts for Duodenal Mass. Contacted the office to resend records. Please advise on scheduling Allergies As of Date: 07/29/2023 (Not on File) Date Reviewed: Never Reviewed Reason for Visit: Appointment [186] Problem List As Of Date: 07/29/2023 (None) Encounter Status:Closed by VICKI ROSARIO on 07/29/23 Normal [facility] Basic Metabolic Panelon 12-0 Anion gap [Moles/Vol] 11.9 mmol/L Normal 6.0-15.0 [facility] Comment on above: Performed By: #### C BC, BMP ####[facility] [place] [address] [facility] Calcium [Mass/Vol] 8.5 mg/dL Low 8.6-10.3 [facility] Comment on above: Performed By: #### C BC, BMP ####[facility] [place] [address] [facility] Chloride [Moles/Vol] 105 mmol/L Normal 98-[address] [facility] Comment on above: Performed By: #### C BC, BMP ####[facility] [place] [address] [facility] CO2 [Moles/Vol] 26.0 mmol/L Normal 21.0-31.0 [facility] Comment on above: Performed By: #### C BC, BMP ####[facility] [place] [address] [facility] Creatinine [Mass/Vol] 1.71 mg/dL Significan t change up 0.70-1.30 [facility] Comment on above: Performed By: #### C BC, BMP ####[place] [id number] [place] [id number] [facility] Creatinine Clr Calc Pharmacy 41.35 [facility] Comment on above: Result Comment: PERF ORMED BY: [facility] [address] [place] [address] PATHOLOGIST [employer] RAHEL TREVINO M.D. Performed By: #### C BC, BMP ####[place] [id number] [address] GFR/1.73 sq M.predicted MDRD (S/P/Bld) [Vol rate/Area] 43.064 mL/min/{1.73_m2} [facility] Comment on above: Performed By: #### C BC, BMP ####[address] Glucose [Mass/Vol] 115 mg/dL High 70-100 [facility] Comment on above: Result Comment: [place] Glucose Reference Range is dependent on time and content of last meal. Glucose of more than 200 mg/dL in a nonstressed, ambulatory subject supports the diagnosis of Diabetes Mellitus. ADA recommended reference range Performed By: #### C BC, BMP ####[place] [id number] [facility] Potassium [Moles/Vol] 3.9 mmol/L Normal 3.5-5.1 [facility] Comment on above: Performed By: #### C BC, BMP ####[address] Sodium [Moles/Vol] 139 mmol/L Normal 136-145 [facility] Comment on above: Performed By: #### C BC, BMP ####[place] [id number] [facility] Urea nitrogen [Mass/Vol] 29 mg/dL High 7-25 [facility] Comment on above: Performed By: #### C BC, BMP ####[place] [id number] [place] Basophils Auto (Bld) [#/Vol] Ordered By: Gela Eller on 07-26-2023 Basophils (Bld) [#/Vol] 0.0 10*3/uL 0.0-0.2 [facility] Basophils/100 WBC Auto (Bld) Ordered By: Gela Eller on 07-26-2023 Basophils/100 WBC (Bld) 0.9 % . [facility] Calcium [Mass/volume] in Ser um or PlasmaOrdered By: Gela Eller on 07-26-2023 Calcium [Mass/Vol] 8.5 mg/dL 8.6-10.3 [facility] Carbon dioxide, total [Moles /volume] in Serum or PlasmaOrdered By: Gela Eller on 07-26-2023 CO2 [Moles/Vol] 26.0 mmol/L 21.0-31.0 [facility] Chloride [Moles/volume] in S sadi or PlasmaOrdered By: Gela Eller on 07-26-2023 Chloride [Moles/Vol] 105 mmol/L 98-[address] [facility] Complete Blood Count Auto Di ffon 07-26-2023 Basophils (Bld) [#/Vol] 0.0 10*3/uL Normal 0.0-0.2 [facility] Comment on above: Result Comment: PERF ORMED BY: [facility] [address] [place] [id number] PATHOLOGIST [employer] RAHEL TREVINO M.D. Performed By: #### C BC, BMP ####[place] [address] Basophils/100 WBC (Bld) 0.9 % Normal . [facility] Comment on above: Performed By: #### C BC, BMP ####[facility] [place] [id number] [place] Eosinophils (Bld) [#/Vol] 0.4 10*3/uL Normal 0.0-0.45 [facility] Comment on above: Performed By: #### C BC, BMP ####[place] [address] [place] [id number] [facility] Eosinophils/100 WBC (Bld) 7.7 % Normal . [facility] Comment on above: Performed By: #### C BC, BMP ####[address] Erythrocyte distribution width (RBC) [Ratio] 12.1 % Normal 12.0-14.8 [facility] Comment on above: Performed By: #### C BC, BMP ####[address] Hematocrit (Bld) [Volume fraction] 31.2 % Low 38.8-50.0 [facility] Comment on above: Performed By: #### C SADAF, BMP ####[address] Hemoglobin (Bld) [Mass/Vol] 10.6 g/dL Low 13.0-17.0 [facility] Comment on above: Performed By: #### C SADAF, BMP ####[address] Lymphocytes (Bld) [#/Vol] 0.8 10*3/uL Low 1.00-4.8 [facility] Comment on above: Performed By: #### C SADAF, BMP ####[address] Lymphocytes/100 WBC (Bld) 15.8 % Normal . [facility] Comment on above: Performed By: #### C SADAF, BMP ####[place] [id number] [facility] MCH (RBC) [Entitic mass] 30.1 pg Normal 27.5-35.2 [facility] Comment on above: Performed By: #### C BC, BMP ####[place] [id number] [facility] MCV (RBC) [Entitic vol] 88.6 fL Normal 83.5-101 [facility] Comment on above: Performed By: #### C BC, BMP ####[place] [id number] [facility] Mean Corpuscular HGB Conc 34.0 g/dL Normal 32.5-35.6 [facility] Comment on above: Performed By: #### C BC, BMP ####[place] [id number] [facility] Monocytes (Bld) [#/Vol] 1.1 10*3/uL High 0.0-0.8 [facility] Comment on above: Performed By: #### C BC, BMP ####[place] [id number] [facility] Monocytes/100 WBC (Bld) 22.7 % Normal . [facility] Comment on above: Performed By: #### C SADAF, BMP ####[address] Neutrophils (Bld) [#/Vol] 2.6 10*3/uL Normal 1.8-7.7 [facility] Comment on above: Performed By: #### C SADAF, BMP ####[place] [id number] [facility] Neutrophils/100 WBC (Bld) 52.9 % Normal . [facility] Comment on above: Performed By: #### C SADAF, BMP ####[place] [id number] [facility] NRBC% 0.2 /100{WBC} Normal 0-0.5 [facility] Comment on above: Performed By: #### C SADAF, BMP ####[place] [id number] [facility] Platelet mean volume (Bld) [Entitic vol] 10.2 fL High 6.6-10.1 [facility] Comment on above: Performed By: #### C BC, BMP ####[place] [id number] [facility] Platelets (Bld) [#/Vol] 190 10*3/uL Normal 150-450 [facility] Comment on above: Performed By: #### C BC, BMP ####[place] [id number] [facility] RBC (Bld) [#/Vol] 3.52 10*6/uL Low 3.90-5.60 [facility] Comment on above: Performed By: #### C SADAF, WESTON ####[facility] [id number] [place] [id number] [facility] WBC (Bld) [#/Vol] 5.0 10*3/uL Normal 4.1-10.5 [facility] Comment on above: Performed By: #### C SADAF, BMP ####[facility] [address] [place] [id number] [facility] Creatinine [Mass/volume] in Serum or PlasmaOrdered By: Gela Eller on 07-26-2023 Creatinine [Mass/Vol] 1.71 mg/dL 0.70-1.30 [facility] Comment on above: Delta: 2.86 on 07/25 Eosinophils Auto (Bld) [#/Vo l]Ordered By: Gela Eller on 07-26-2023 Eosinophils (Bld) [#/Vol] 0.4 10*3/uL 0.0-0.45 [facility] Eosinophils/100 WBC Auto (Bl d)Ordered By: Gela Eller on 07-26-2023 Eosinophils/100 WBC (Bld) 7.7 % . [facility] Erythrocyte distribution wid th Auto (RBC) [Ratio]Ordered By: Gela Eller on 07-26-2023 Erythrocyte distribution width (RBC) [Ratio] 12.1 % 12.0-14.8 [facility] Glucose [Mass/volume] in Ser um or PlasmaOrdered By: Gela Eller on 07-26-2023 Glucose [Mass/Vol] 115 mg/dL 70-100 [facility] Comment on above: ADA recommended refe rence rangeRandom Glucose Reference Range is dependent on time and content of last meal. Glucose of more than 200 mg/dL in a nonstressed, ambulatory subject supports the diagnosis of Diabetes Mellitus. Hematocrit Auto (Bld) [Volum e fraction]Ordered By: Gela Eller on 07-26-2023 Hematocrit (Bld) [Volume fraction] 31.2 % 38.8-50.0 [facility] Hemoglobin [Mass/volume] in BloodOrdered By: Gela Eller on 07-26-2023 Hemoglobin (Bld) [Mass/Vol] 10.6 g/dL 13.0-17.0 [facility] Leukocytes [#/volume] correc johnnie for nucleated erythrocytes in Blood by Automated counOrdered By: Gela Eller on 07-26-2023 WBC corrected for nucl RBC Auto (Bld) [#/Vol] 5.0 10*3/uL 4.1-10.5 [facility] Lymphocytes Auto (Bld) [#/Vo l]Ordered By: Gela Eller on 07-26-2023 Lymphocytes (Bld) [#/Vol] 0.8 10*3/uL 1.00-4.8 [facility] Lymphocytes/100 WBC Auto (Bl d)Ordered By: Gela Eller on 07-26-2023 Lymphocytes/100 WBC (Bld) 15.8 % . [facility] MCH Auto (RBC) [Entitic mass ]Ordered By: Gela Eller on 07-26-2023 MCH (RBC) [Entitic mass] 30.1 pg 27.5-35.2 [facility] MCHC Auto (RBC) [Mass/Vol]Or dered By: Gela Eller on 07-26-2023 MCHC (RBC) [Mass/Vol] 34.0 g/dL 32.5-35.6 [facility] MCV Auto (RBC) [Entitic vol] Ordered By: Gela Eller on 07-26-2023 MCV (RBC) [Entitic vol] 88.6 fL 83.5-101 [facility] Monocytes Auto (Bld) [#/Vol] Ordered By: Gela Eller on 07-26-2023 Monocytes (Bld) [#/Vol] 1.1 10*3/uL 0.0-0.8 [facility] Monocytes/100 WBC Auto (Bld) Ordered By: Gela Eller on 07-26-2023 Monocytes/100 WBC (Bld) 22.7 % . [facility] Neutrophils Auto (Bld) [#/Vo l]Ordered By: Gela Eller on 07-26-2023 Neutrophils (Bld) [#/Vol] 2.6 10*3/uL 1.8-7.7 [facility] Neutrophils/100 WBC Auto (Bl d)Ordered By: Gela Eller on 07-26-2023 Neutrophils/100 WBC (Bld) 52.9 % . [facility] No Panel InformationOrdered By: Gela Eller on 07-26-2023 Estimated GFR (CKD-EPI) 43.064 mL/Min [facility] Pharmacy Creatinine Clearance (Chem 41.35 [facility] Nucleated erythrocytes [Pres ence] in Blood by Automated countOrdered By: Gela Eller on 07-26-2023 Nucleated RBC Auto Ql (Bld) 0.2 /100{WBC} 0-0.5 [facility] Platelet mean volume Auto (B ld) [Entitic vol]Ordered By: Gela Eller on 07-26-2023 Platelet mean volume (Bld) [Entitic vol] 10.2 fL 6.6-10.1 [facility] Platelets Auto (Bld) [#/Vol] Ordered By: Gela Eller on 07-26-2023 Platelets (Bld) [#/Vol] 190 10*3/uL 150-450 [facility] Potassium [Moles/volume] in Serum or PlasmaOrdered By: Gela Eller on 07-26-2023 Potassium [Moles/Vol] 3.9 mmol/L 3.5-5.1 [facility] RBC Auto (Bld) [#/Vol]Ordere d By: Gela Eller on 07-26-2023 RBC (Bld) [#/Vol] 3.52 10*6/uL 3.90-5.60 [facility] Serum or plasma anion gap de terminationOrdered By: Gela Eller on 07-26-2023 Anion gap [Moles/Vol] 11.9 mmol/L 6.0-15.0 [facility] Sodium [Moles/volume] in Ser um or PlasmaOrdered By: Gela Eller on 07-26-2023 Sodium [Moles/Vol] 139 mmol/L 136-145 [facility] Urea nitrogen [Mass/volume] in Serum or PlasmaOrdered By: Gela Eller on 07-26-2023 Urea nitrogen [Mass/Vol] 29 mg/dL 03-18 [facility] WBC Auto (Bld) [#/Vol]Ordere d By: Gela Eller on 07-26-2023 WBC (Bld) [#/Vol] 5.0 10*3/uL 4.1-10.5 [facility] Alanine aminotransferase [En zymatic activity/volume] in Serum or PlasmaOrdered By: Gela Eller on 07-25-2023 ALT [Catalytic activity/Vol] 9 U/L [facility] Albumin [Mass/volume] in Ser um or Plasma by Bromocresol green (BCG) dye binding methoOrdered By: Gela Eller on 07-25-2023 Albumin BCG dye [Mass/Vol] 3.4 g/dL 3.5-5.7 [facility] Alkaline phosphatase [Enzyma tic activity/volume] in Serum or PlasmaOrdered By: Gela Eller on 07-25-2023 ALP [Catalytic activity/Vol] 60 U/L 34-104 [facility] Aspartate aminotransferase [ Enzymatic activity/volume] in Serum or PlasmaOrdered By: Gela Eller on 07-25-2023 AST [Catalytic activity/Vol] 16 U/L 13-39 [facility] Basic Metabolic Panelon 12-0 Anion gap [Moles/Vol] 11.8 mmol/L Normal 6.0-15.0 [facility] Comment on above: Order Comment: Comme nt pls call w K level Performed By: #### B MP ####[facility] [id number] [place] [id number] [facility] Calcium [Mass/Vol] 8.3 mg/dL Low 8.6-10.3 [facility] Comment on above: Order Comment: Comme nt pls call w K level Performed By: #### B MP ####[facility] [place] [id number] [facility] Chloride [Moles/Vol] 97 mmol/L Low 98-[address] [facility] Comment on above: Order Comment: Comme nt pls call w K level Performed By: #### B MP ####[place] [id number] [place] [id number] [facility] CO2 [Moles/Vol] 31.8 mmol/L High 21.0-31.0 [facility] Comment on above: Order Comment: Comme nt pls call w K level Performed By: #### B MP ####[place] [id number] [facility] Creatinine [Mass/Vol] 3.42 mg/dL Significan t change up 0.70-1.30 [facility] Comment on above: Order Comment: Comme nt pls call w K level Performed By: #### B MP ####[place] [address] [place] [id number] [facility] Creatinine Clr Calc Pharmacy 20.67 Normal [facility] Comment on above: Order Comment: Comme nt pls call w K level Result Comment: PERF ORMED BY: [facility] [address] [place] [id number] PATHOLOGIST [employer] RAHEL TREVINO M.D. Performed By: #### B MP ####[place] [id number] [facility] GFR/1.73 sq M.predicted MDRD (S/P/Bld) [Vol rate/Area] 18.745 mL/min/{1.73_m2} Normal [facility] Comment on above: Order Comment: Comme nt pls call w K level Performed By: #### B MP ####[address] [address] [facility] Glucose [Mass/Vol] 86 mg/dL Normal 70-100 [facility] Comment on above: Order Comment: Comme nt pls call w K level Result Comment: [place] om Glucose Reference Range is dependent on time and content of last meal. Glucose of more than 200 mg/dL in a nonstressed, ambulatory subject supports the diagnosis of Diabetes Mellitus. ADA recommended reference range Performed By: #### B MP ####[place] [address] [address] Potassium [Moles/Vol] 3.6 mmol/L Normal 3.5-5.1 [facility] Comment on above: Order Comment: Comme nt pls call w K level Performed By: #### B MP ####[facility] Sodium [Moles/Vol] 137 mmol/L Normal 136-145 [facility] Comment on above: Order Comment: Comme nt pls call w K level Performed By: #### B MP ####[place] [address] [address] Urea nitrogen [Mass/Vol] 50 mg/dL High 7-25 [facility] Comment on above: Order Comment: Comme nt pls call w K level Performed By: #### B MP ####[address] Bilirubin.total [Mass/volume ] in Serum or PlasmaOrdered By: Gela Eller on 07-25-2023 Bilirubin [Mass/Vol] 0.7 mg/dL 0.3-1.[address] [facility] Complete Blood Count Auto Di ffon 07-25-2023 Basophils (Bld) [#/Vol] 0.1 10*3/uL Normal 0.0-0.2 [facility] Comment on above: Result Comment: PERF ORMED BY: [place] [address] PATHOLOGIST [employer] RAHEL TREVINO M.D. Performed By: #### C MP, CBC #### [facility] [address] Basophils/100 WBC (Bld) 0.9 % Normal . [facility] Comment on above: Performed By: #### C MP, CBC #### [facility] [address] Eosinophils (Bld) [#/Vol] 0.5 10*3/uL High 0.0-0.45 [facility] Comment on above: Performed By: #### C MP, CBC #### [facility] [address] Eosinophils/100 WBC (Bld) 7.7 % Normal . [facility] Comment on above: Performed By: #### C MP, CBC #### [facility] [address] Erythrocyte distribution width (RBC) [Ratio] 12.4 % Normal 12.0-14.8 [facility] Comment on above: Performed By: #### C MP, CBC #### [address] Hematocrit (Bld) [Volume fraction] 33.8 % Low 38.8-50.0 [facility] Comment on above: Performed By: #### C MP, CBC #### [address] Hemoglobin (Bld) [Mass/Vol] 11.3 g/dL Low 13.0-17.0 [facility] Comment on above: Performed By: #### C MP, CBC #### [address] Lymphocytes (Bld) [#/Vol] 0.6 10*3/uL Low 1.00-4.8 [facility] Comment on above: Performed By: #### C MP, CBC #### [address] Lymphocytes/100 WBC (Bld) 9.8 % Normal . [facility] Comment on above: Performed By: #### C MP, CBC #### [address] MCH (RBC) [Entitic mass] 29.8 pg Normal 27.5-35.2 [facility] Comment on above: Performed By: #### C MP, CBC #### [address] MCV (RBC) [Entitic vol] 89.0 fL Normal 83.5-101 [facility] Comment on above: Performed By: #### C MP, CBC #### [address] [address] [place] Mean Corpuscular HGB Conc 33.5 g/dL Normal 32.5-35.6 [facility] Comment on above: Performed By: #### C MP, CBC #### [address] Monocytes (Bld) [#/Vol] 1.3 10*3/uL High 0.0-0.8 [facility] Comment on above: Performed By: #### C MP, CBC #### [address] Monocytes/100 WBC (Bld) 21.3 % Normal . [facility] Comment on above: Performed By: #### C MP, CBC #### [address] Neutrophils (Bld) [#/Vol] 3.6 10*3/uL Normal 1.8-7.7 [facility] Comment on above: Performed By: #### C MP, CBC #### [address] Neutrophils/100 WBC (Bld) 60.3 % Normal . [facility] Comment on above: Performed By: #### C MP, CBC #### [address] NRBC% 0.1 /100{WBC} Normal 0-0.5 [facility] Comment on above: Performed By: #### C MP, CBC #### [address] Platelet mean volume (Bld) [Entitic vol] 10.7 fL High 6.6-10.1 [facility] Comment on above: Performed By: #### C MP, CBC #### [address] Platelets (Bld) [#/Vol] 188 10*3/uL Significant change down 150-450 [facility] Comment on above: Performed By: #### C MP, CBC #### [address] RBC (Bld) [#/Vol] 3.80 10*6/uL Low 3.90-5.60 [facility] [place] Comment on above: Performed By: #### C MP, CBC #### [address] WBC (Bld) [#/Vol] 5.9 10*3/uL Normal 4.1-10.5 [facility] Comment on above: Performed By: #### C MP, CBC #### [address] Comprehensive Metabolic Pane jefry 07-25-2023 Albumin [Mass/Vol] 3.4 g/dL Low 3.5-5.7 [facility] Comment on above: Performed By: #### C MP, CBC #### [address] Albumin/Globulin [Mass ratio] 1.3 {ratio} Normal [facility] Comment on above: Performed By: #### C MP, CBC #### [address] ALP [Catalytic activity/Vol] 60 U/L Normal 34-104 [facility] Comment on above: Performed By: #### C MP, CBC #### [address] ALT [Catalytic activity/Vol] 9 U/L Normal 7-52 [facility] Comment on above: Performed By: #### C MP, CBC #### [address] Anion gap [Moles/Vol] 11.5 mmol/L Normal 6.0-15.0 [facility] Comment on above: Performed By: #### C MP, CBC #### [address] AST [Catalytic activity/Vol] 16 U/L Normal 13-39 [facility] Comment on above: Performed By: #### C MP, CBC #### [address] Bilirubin [Mass/Vol] 0.7 mg/dL Normal 0.3-1.[address] [facility] Comment on above: Performed By: #### C MP, CBC #### [facility] [address] Calcium [Mass/Vol] 8.6 mg/dL Normal 8.6-10.3 [facility] Comment on above: Performed By: #### C MP, CBC #### [facility] [address] Chloride [Moles/Vol] 98 mmol/L Normal 98-[address] [facility] Comment on above: Performed By: #### C MP, CBC #### [facility] [address] CO2 [Moles/Vol] 31.4 mmol/L High 21.0-31.0 [facility] Comment on above: Performed By: #### C MP, CBC #### [address] Creatinine [Mass/Vol] 2.86 mg/dL Significan t change up 0.70-1.30 [facility] Comment on above: Performed By: #### C MP, CBC #### [address] Creatinine Clr Calc Pharmacy 24.72 [facility] Comment on above: Result Comment: PERF ORMED BY: [place] [address] PATHOLOGIST [employer] RAHEL TREVINO M.D. Performed By: #### C MP, CBC #### [facility] [address] [place] [address] [place] GFR/1.73 sq M.predicted MDRD (S/P/Bld) [Vol rate/Area] 23.231 mL/min/{1.73_m2} [facility] Comment on above: Performed By: #### C MP, CBC #### [facility] [address] [place] [address] [place] Globulin (S) [Mass/Vol] 2.7 g/dL [facility] Comment on above: Performed By: #### C MP, CBC #### [facility] [address] Glucose [Mass/Vol] 81 mg/dL Normal 70-100 [facility] Comment on above: Result Comment: [place] Glucose Reference Range is dependent on time and content of last meal. Glucose of more than 200 mg/dL in a nonstressed, ambulatory subject supports the diagnosis of Diabetes Mellitus. ADA recommended reference range Performed By: #### C MP, CBC #### [facility] [address] Potassium [Moles/Vol] 3.9 mmol/L Normal 3.5-5.1 [facility] Comment on above: Performed By: #### C MP, CBC #### [facility] [address] Protein [Mass/Vol] 6.1 g/dL Significant change down 6.4-8.9 [facility] Comment on above: Performed By: #### C MP, CBC #### [facility] [address] Sodium [Moles/Vol] 137 mmol/L Normal 136-145 [facility] Comment on above: Performed By: #### C MP, CBC #### [facility] [address] [place] [address] [place] Urea nitrogen [Mass/Vol] 44 mg/dL High 7-25 [facility] Comment on above: Performed By: #### C MP, CBC #### [facility] [address] [place] [address] [place] Creatinine, Urine (Random)on 07-25-2023 Creatinine, Urine (Random) 141.0 mg/dL High 14.0-26.0 [facility] Comment on above: Performed By: #### U NA, UCREA #### [facility] [address] [place] [address] [place] Globulin Calc (S) [Mass/Vol] Ordered By: Gela Eller on 07-25-2023 Globulin (S) [Mass/Vol] 2.7 g/dL [facility] Jefry 07-25-2023 L ------ Specimen: [id number] Received: 07/25/23 Status: ANT Goyal Num: [id number] Spec Type: Surgical Subm Dr: Nohemy Linder MD Tissues: A Duodenum - Biopsy (DUODENUM BX) B Gastric Biopsy (GASTRIC BX) Procedures: HE/Louise, Gross/Micro L4/2, H PYLORI Age/ Patient Sex Location Account Attending Physician Aisha Julien/Radha [id number] Gela Eller MD SPEC NUM: [id number] RECD: 07/25/23 STATUS: ANT GOYAL NUM: [id number] ALLISON: 07/25/23- [facility] DR: Nohemy Linder MD ENTERED: 07/25/23 [facility] DR: SPEC TYPE: Surgical DEPT: S ORDERED: [...] infection Clinical Information Dizzy, abnormal labs Specimen: [id number] Received: 07/25/23 Status: ANT Castro Num: [id number] Spec Type: Surgical Subm Dr: Nohemy Linder MD Tissues: A Duodenum - Biopsy (DUODENUM BX) B Gastric Biopsy (GASTRIC BX) Procedures: HE/4, Gross/Micro L4/2, H PYLORI Patient: Aisha Julien Naveen [id number] (Continued) Specimen: [id number] Received: 07/25/23 (Continued) Signed (signature on file) Vignesh Koehler MD 07/28/231999 Specimen: [id number] Received: 07/25/23 Status: ANT Caspereyal Num: [id number] Spec Type: Surgical Subm Dr: Nohemy Linder MD Tissues: A Duodenum - Biopsy (DUODENUM BX) B Gastric Biopsy (GASTRIC BX) Procedures: HE/4, Gross/Micro L4/2, H PYLORI Patient: WilyAisha L [id number] (Continued) Specimen: [id number] Received: 07/25/23 (Continued) Gross Description A. Received [...] microscopic examination confirms the diagnosis. CPT Codes 66503e2, 32105l3 Specimen: [id number] Received: 07/25/23 Status: ANT Goyal Num: [id number] Spec Type: Surgical Subm Dr: Nohemy Linder MD Tissues: A Duodenum - Biopsy (DUODENUM BX) B Gastric Biopsy (GASTRIC BX) Procedures: HE/4, Gross/Micro L4/2, H PYLORI Patient: Aisha Julien [id number] (Continued) Signed (signature on file) Vignesh Koehler MD 07/28/231999 Normal [facility] Protein [Mass/volume] in Ser um or PlasmaOrdered By: Gela Eller on 07-25-2023 Protein [Mass/Vol] 6.1 g/dL 6.4-8.9 [facility] Comment on above: Delta: 7.8 on -1228 Serum or plasma albumin/glob ulin mass ratioOrdered By: Gela Eller on 07-25-2023 Albumin/Globulin [Mass ratio] 1.3 {ratio} [facility] Sodium, Urine (Random)on Sodium (U) [Moles/Vol] 41 mmol/L Normal [facility] Comment on above: Result Comment: No r eference range established PERFORMED BY: [facility] [address] [place] [address] PATHOLOGIST [employer] RAHEL TREVINO M.D. Performed By: #### U NACHERRY #### [facility] [address] Alanine aminotransferase [En zymatic activity/volume] in Serum or PlasmaOrdered By: Jean Paul Gutiérrez on 07-24-2023 ALT [Catalytic activity/Vol] 12 U/L 7-52 [facility] Albumin [Mass/volume] in Ser um or Plasma by Bromocresol green (BCG) dye binding methoOrdered By: Jean Paul Gutiérrez on 07-24-2023 Albumin BCG dye [Mass/Vol] 4.3 g/dL 3.5-5.7 [facility] Alkaline phosphatase [Enzyma tic activity/volume] in Serum or PlasmaOrdered By: Jean Paul Gutiérrez on 07-24-2023 ALP [Catalytic activity/Vol] 72 U/L 34-104 [facility] Aspartate aminotransferase [ Enzymatic activity/volume] in Serum or PlasmaOrdered By: Jean Paul Gutiérrez on 07-24-2023 AST [Catalytic activity/Vol] 24 U/L 13-39 [facility] Automated erythrocytes count in urine sediment (number/area)Ordered By: Jean Paul Gutiérrez on 07-24-2023 RBC Auto (Urine sed) [#/Area] 5-9 [HPF] 0-4 [facility] Automated leukocytes count i n urine sediment (number/area)Ordered By: Jean Paul Gutiérrez on 07-24-2023 WBC Auto (Urine sed) [#/Area] 0-1 [HPF] 0-4 [facility] Basic Metabolic Panelon 06-27 Anion gap [Moles/Vol] 18.0 mmol/L High 6.0-15.0 [facility] Comment on above: Performed By: #### C MP, CBC #### [facility] [address] [place] [address] [place] Calcium [Mass/Vol] 9.6 mg/dL Normal 8.6-10.3 [facility] Comment on above: Performed By: #### C MP, CBC #### [facility] [address] [place] [address] [place] Chloride [Moles/Vol] 84 mmol/L Low 98-[address] [facility] Comment on above: Performed By: #### C MP, CBC #### [facility] [address] [place] [address] [place] CO2 [Moles/Vol] 34.9 mmol/L High 21.0-31.0 [facility] Comment on above: Performed By: #### C MP, CBC #### [facility] [address] [place] [address] [place] Creatinine [Mass/Vol] 4.59 mg/dL High 0.70-1.30 [facility] Comment on above: Performed By: #### C MP, CBC #### [facility] [address] [place] [address] [place] Creatinine Clr Calc Pharmacy 15.40 [facility] Comment on above: Performed By: #### C MP, CBC #### [facility] [address] [place] [address] [place] GFR/1.73 sq M.predicted MDRD (S/P/Bld) [Vol rate/Area] 13.168 mL/min/{1.73_m2} [facility] Comment on above: Performed By: #### C MP, CBC #### [address] Glucose [Mass/Vol] 128 mg/dL High 70-100 [facility] Comment on above: Result Comment: [place] Glucose Reference Range is dependent on time and content of last meal. Glucose of more than 200 mg/dL in a nonstressed, ambulatory subject supports the diagnosis of Diabetes Mellitus. ADA recommended reference range Performed By: #### C MP, CBC #### [address] Potassium [Moles/Vol] 2.9 mmol/L Off scale low 3.5-5.1 [facility] Comment on above: Result Comment: Crit ical Result Called to and read back by: ANDREAS CARABALLO at: 07/24/2023 13:30:58 by:MLG Performed By: #### C MP, CBC #### [address] Sodium [Moles/Vol] 134 mmol/L Low 136-145 [facility] Comment on above: Performed By: #### C MP, CBC #### [address] Urea nitrogen [Mass/Vol] 56 mg/dL High 7-25 [facility] Comment on above: Performed By: #### C MP, CBC #### [place] [address] [place] Basophils Auto (Bld) [#/Vol] Ordered By: Jean Paul Gutiérrez on 07-24-2023 Basophils (Bld) [#/Vol] 0.0 10*3/uL 0.0-0.2 [facility] Basophils/100 WBC Auto (Bld) Ordered By: Jean Paul Gutiérrez on 07-24-2023 Basophils/100 WBC (Bld) 0.5 % . [facility] Bilirubin Test strip Ql (U)O rdered By: Jean Paul Gutiérrez on 07-24-2023 Bilirubin Ql (U) Negative Negative [facility] Bilirubin.direct [Mass/volum e] in Serum or PlasmaOrdered By: Jean Paul Gutiérrez on 07-24-2023 Bilirubin.direct [Mass/Vol] 0.20 mg/dL 0.03-0.18 [facility] Bilirubin.total [Mass/volume ] in Serum or PlasmaOrdered By: Jean Paul Gutiérrez on 07-24-2023 Bilirubin [Mass/Vol] 0.8 mg/dL 0.3-1.[address] [facility] CT abdomen pelvis wo conon 1 09-23-2022 CT abdomen pelvis wo [facility] [place] [address] CT Scan Report Signed Patient: Aisha Julien MR#: [id number] 79 : 1955 Acct:[id number] Age/Sex: 68 / M ADM Date: 07/24/23 Loc: ER Room: Type: [facility] ER Attending Dr: Copies to: Jean [...] 07/24/2023 Impression dictated by: Lebron Santa Jr., Antonino07/24/2023 2:43 PM Dictation Location: [place] [address] Transcribed By: [facility] 07/24/23 1443 Dictated By: Lebron Santa Jr, DO 07/24/23 1428 Signed By: 07/24/23 1443 Normal [facility] Calcium [Mass/volume] in Ser um or PlasmaOrdered By: Jean Paul Gutiérrez on 07-24-2023 Calcium [Mass/Vol] 9.6 mg/dL 8.6-10.3 [facility] Carbon dioxide, total [Moles /volume] in Serum or PlasmaOrdered By: Jean Paul Gutiérrez on 07-24-2023 CO2 [Moles/Vol] 34.9 mmol/L 21.0-31.0 [facility] Chloride [Moles/volume] in S sadi or PlasmaOrdered By: Jean Paul Gutiérrez on 07-24-2023 Chloride [Moles/Vol] 84 mmol/L 98-[address] [facility] Color Auto (U)Ordered By: Dickson Gutiérrez on 07-24-2023 Color (U) Yellow Yellow [facility] Complete Blood Count Auto Di ffon 07-24-2023 Basophils (Bld) [#/Vol] 0.0 10*3/uL Normal 0.0-0.2 [facility] Comment on above: Result Comment: PERF ORMED BY: [place] [address] PATHOLOGIST [employer] RAHEL TREVINO M.D. Performed By: #### C MP, CBC #### [address] Basophils/100 WBC (Bld) 0.5 % Normal . [facility] Comment on above: Performed By: #### C MP, CBC #### [place] [address] [place] Eosinophils (Bld) [#/Vol] 0.1 10*3/uL Normal 0.0-0.45 [facility] Comment on above: Performed By: #### C MP, CBC #### [place] [address] [place] Eosinophils/100 WBC (Bld) 1.0 % Normal . [facility] Comment on above: Performed By: #### C MP, CBC #### [address] Erythrocyte distribution width (RBC) [Ratio] 12.4 % Normal 12.0-14.8 [facility] Comment on above: Performed By: #### C MP, CBC #### [address] Hematocrit (Bld) [Volume fraction] 40.5 % Normal 38.8-50.0 [facility] Comment on above: Performed By: #### C MP, CBC #### [address] Hemoglobin (Bld) [Mass/Vol] 13.7 g/dL Normal 13.0-17.0 [facility] Comment on above: Performed By: #### C MP, CBC #### [address] Lymphocytes (Bld) [#/Vol] 0.9 10*3/uL Low 1.00-4.8 [facility] Comment on above: Performed By: #### C MP, CBC #### [address] Lymphocytes/100 WBC (Bld) 12.6 % Normal . [facility] Comment on above: Performed By: #### C MP, CBC #### [address] MCH (RBC) [Entitic mass] 29.8 pg Normal 27.5-35.2 [facility] Comment on above: Performed By: #### C MP, CBC #### [address] MCV (RBC) [Entitic vol] 88.1 fL Normal 83.5-101 [facility] Comment on above: Performed By: #### C MP, CBC #### [address] Mean Corpuscular HGB Conc 33.8 g/dL Normal 32.5-35.6 [facility] Comment on above: Performed By: #### C MP, CBC #### [address] Monocytes (Bld) [#/Vol] 0.8 10*3/uL Normal 0.0-0.8 [facility] Comment on above: Performed By: #### C MP, CBC #### [facility] [address] [place] [address] [place] Monocytes/100 WBC (Bld) 21.73 % High 0.00-20.00 [facility] Comment on above: Result Comment: For adults in ED, MDW > 20.0 may be associated with a higher risk of sepsis during the first 12 hrs of hospital admission Performed By: #### C MP, CBC #### [facility] [address] Monocytes/100 WBC (Bld) 10.3 % Normal . [facility] Comment on above: Performed By: #### C MP, CBC #### [address] Neutrophils (Bld) [#/Vol] 5.5 10*3/uL Normal 1.8-7.7 [facility] Comment on above: Performed By: #### C MP, CBC #### [place] [address] [place] Neutrophils/100 WBC (Bld) 75.6 % Normal . [facility] Comment on above: Performed By: #### C MP, CBC #### [place] [address] [place] NRBC% 0.2 /100{WBC} Normal 0-0.5 [facility] Comment on above: Performed By: #### C MP, CBC #### [facility] [address] [place] [address] [place] Platelet mean volume (Bld) [Entitic vol] 10.8 fL High 6.6-10.1 [facility] Comment on above: Performed By: #### C MP, CBC #### [facility] [address] [place] [id number] [place] Platelets (Bld) [#/Vol] 256 10*3/uL Normal 150-450 [facility] Comment on above: Performed By: #### C MP, CBC #### [address] [place] [address] [place] RBC (Bld) [#/Vol] 4.60 10*6/uL Normal 3.90-5.60 [facility] Comment on above: Performed By: #### C MP, CBC #### [facility] [address] [place] [phone] [place] WBC (Bld) [#/Vol] 7.3 10*3/uL Normal 4.1-10.5 [facility] Comment on above: Performed By: #### C MP, CBC #### [facility] [address] [place] [address] [place] Creatinine [Mass/volume] in Serum or PlasmaOrdered By: Jean Paul Gutiérrez on 07-24-2023 Creatinine [Mass/Vol] 4.59 mg/dL 0.70-1.30 [facility] Creatinine [Mass/volume] in UrineOrdered By: Gela Eller on 07-24-2023 Creatinine (U) [Mass/Vol] 141.0 mg/dL 14.0-26.0 [facility] Dipstick and Microscopicon 1 09-23-2022 Appearance (U) Clear Normal Clear [facility] Comment on above: Order Comment: Name Collection Type:: Clean-Voided Midstream Performed By: #### C MP, CBC #### [place] [address] [place] Bacteria,Urine None Seen Normal None Seen [facility] Comment on above: Order Comment: Name Collection Type:: Clean-Voided Midstream Performed By: #### C MP, CBC #### [facility] [address] [place] [address] [place] Bilirubin,Urine Negative Normal Negative [facility] Comment on above: Order Comment: Name Collection Type:: Clean-Voided Midstream Performed By: #### C MP, CBC #### [facility] [address] [place] [id number] [place] Color (U) Yellow Normal Yellow [facility] Comment on above: Order Comment: Name Collection Type:: Clean-Voided Midstream Performed By: #### C MP, CBC #### [facility] [address] Glucose Ql (U) Normal Normal Normal [facility] Comment on above: Order Comment: Name Collection Type:: Clean-Voided Midstream Performed By: #### C MP, CBC #### [address] Hyaline Casts,Urine None Seen Normal 0-8 [facility] Comment on above: Order Comment: Name Collection Type:: Clean-Voided Midstream Result Comment: PERF ORMED BY: [place] [address] PATHOLOGIST [employer] RAHEL TREVINO M.D. Performed By: #### C MP, CBC #### [address] Ketones Ql (U) Trace High Negative [facility] Comment on above: Order Comment: Name Collection Type:: Clean-Voided Midstream Performed By: #### C MP, CBC #### [address] Leukocyte esterase Test strip Ql (U) Negative Normal Negative [facility] Comment on above: Order Comment: Name Collection Type:: Clean-Voided Midstream Performed By: #### C MP, CBC #### [address] Nitrite,Urine Negative Normal Negative [facility] Comment on above: Order Comment: Name Collection Type:: Clean-Voided Midstream Performed By: #### C MP, CBC #### [place] [address] [place] Occult Blood,Urine Negative Normal Negative [facility] Comment on above: Order Comment: Name Collection Type:: Clean-Voided Midstream Result Comment: PERF ORMED BY: [place] [address] PATHOLOGIST [employer] RAHEL TREVINO M.D. Performed By: #### C MP, CBC #### [place] [address] [place] pH (U) 5.5 [pH] Normal 5.0-9.0 [facility] Comment on above: Order Comment: Name Collection Type:: Clean-Voided Midstream Performed By: #### C MP, CBC #### [address] Protein (U) [Mass/Vol] 30 mg/dL High Negative [facility] Comment on above: Order Comment: Name Collection Type:: Clean-Voided Midstream Performed By: #### C MP, CBC #### [address] RBC,Urine 5-9 High 0-4 [facility] Comment on above: Order Comment: Name Collection Type:: Clean-Voided Midstream Performed By: #### C MP, CBC #### [address] Specificy Thorofare,Urine 1.015 Normal 1.001-1.03 0 [facility] Comment on above: Order Comment: Name Collection Type:: Clean-Voided Midstream Performed By: #### C MP, CBC #### [address] Squamous Epithelial Cell,Urine None Seen Normal 0-2 [facility] Comment on above: Order Comment: Name Collection Type:: Clean-Voided Midstream Performed By: #### C MP, CBC #### [address] Urobilinogen,Urine Normal Normal Normal [facility] Comment on above: Order Comment: Name Collection Type:: Clean-Voided Midstream Performed By: #### C MP, CBC #### [place] [address] [place] WBC LM.HPF (Urine sed) [#/Area] 0 /[HPF] Normal 0-4 [facility] Comment on above: Order Comment: Name Collection Type:: Clean-Voided Midstream Performed By: #### C MP, CBC #### [address] ECG 12 lead ECGon 07-24-2023 ECG 12 lead ECG [facility] [place] [id number] Electrocardiograph Report Signed Patient: Aisha Julien MR#: [id number] 79 : 1955 Acct:[id number] Age/Sex: 68 / M ADM Date: 07/24/23 Loc: Room: [address] [place] [address] Type: ADM IN Attending Dr: Gela Eller [...] rhythm Confirmed by JEAN PAUL GUTIÉRREZ DO ([id number]) on 07/25/2023 4:32:20 PM Referred By: Electronically Signed By:JEAN PAUL GUTIÉRREZ DO Transcribed By: MUS Signed By Jean Paul Gutiérrez DO 07/25 1632 [facility] ECG 12 lead ECG [facility] Main [place] [id number] Electrocardiograph Report Signed Patient: Aisha Julien MR#: [id number] 79 : 1955 Acct:[id number] Age/Sex: 68 / M ADM Date: 07/24/23 Loc: ER Room: Type: [facility] ER Attending Dr: Ordering Provider: Jean [...] lengthened Confirmed by JEAN PAUL GUTIÉRREZ DO ([id number]) on 07/24/2023 3:51:38 PM Referred By: Electronically Signed By:JEAN PAUL GUTIÉRREZ DO Transcribed By: MUS Signed By Jean Paul Gutiérrez DO 07/24 1551 Normal [facility] Eosinophils Auto (Bld) [#/Vo l]Ordered By: Jean Paul Gutiérrez on 07-24-2023 Eosinophils (Bld) [#/Vol] 0.1 10*3/uL 0.0-0.45 [facility] Eosinophils/100 WBC Auto (Bl d)Ordered By: Jean Paul Gutiérrez on 07-24-2023 Eosinophils/100 WBC (Bld) 1.0 % . [facility] Erythrocyte distribution wid th Auto (RBC) [Ratio]Ordered By: Jean Paul Gutiérrez on 07-24-2023 Erythrocyte distribution width (RBC) [Ratio] 12.4 % 12.0-14.8 [facility] Globulin Calc (S) [Mass/Vol] Ordered By: Jean Paul Gutiérrez on 07-24-2023 Globulin (S) [Mass/Vol] 3.5 g/dL [facility] Glucose [Mass/volume] in Ser um or PlasmaOrdered By: Jean Paul Gutiérrez on 07-24-2023 Glucose [Mass/Vol] 128 mg/dL 70-100 [facility] Comment on above: ADA recommended refe rence rangeRandom Glucose Reference Range is dependent on time and content of last meal. Glucose of more than 200 mg/dL in a nonstressed, ambulatory subject supports the diagnosis of Diabetes Mellitus. Hematocrit Auto (Bld) [Volum e fraction]Ordered By: Jean Paul Gutiérrez on 07-24-2023 Hematocrit (Bld) [Volume fraction] 40.5 % 38.8-50.0 [facility] Hemoglobin [Mass/volume] in BloodOrdered By: Jean Paul Gutiérrez on 07-24-2023 Hemoglobin (Bld) [Mass/Vol] 13.7 g/dL 13.0-17.0 [facility] Hepatic Panelon 07-24-2023 Albumin [Mass/Vol] 4.3 g/dL Normal 3.5-5.7 [facility] Comment on above: Performed By: #### C MP, CBC #### [facility] [address] [place] [address] Albumin/Globulin [Mass ratio] 1.2 {ratio} Normal [facility] Comment on above: Performed By: #### C MP, CBC #### [address] ALP [Catalytic activity/Vol] 72 U/L Normal 34-104 [facility] Comment on above: Performed By: #### C MP, CBC #### [address] ALT [Catalytic activity/Vol] 12 U/L Normal 7-52 [facility] Comment on above: Performed By: #### C MP, CBC #### [address] AST [Catalytic activity/Vol] 24 U/L Normal 13-39 [facility] Comment on above: Performed By: #### C MP, CBC #### [address] Bilirubin [Mass/Vol] 0.8 mg/dL Normal 0.3-1.[address] [facility] Comment on above: Performed By: #### C MP, CBC #### [address] Bilirubin,Indirect 0.6 mg/dL Normal [facility] Comment on above: Performed By: #### C MP, CBC #### [address] Bilirubin.indirect [Mass/Vol] 0.20 mg/dL High 0.03-0.18 [facility] Comment on above: Performed By: #### C MP, CBC #### [facility] [address] [place] [address] Globulin (S) [Mass/Vol] 3.5 g/dL Normal [facility] Comment on above: Performed By: #### C MP, CBC #### [facility] [address] [place] [address] Protein [Mass/Vol] 7.8 g/dL Normal 6.4-8.9 [facility] Comment on above: Performed By: #### C MP, CBC #### [facility] [address] INR in Platelet poor plasma by Coagulation assayOrdered By: Jean Paul Gutiérrez on 07-24-2023 INR Coag (PPP) [Relative time] 1.0 {INR} [facility] Comment on above: INR Therapeutic Rang e [...] on 07-24-2023 Ketones (U) [Mass/Vol] Trace Negative [facility] Laboratory - UrinalysisOrder ed By: Jean Paul Gutiérrez on 07-24-2023 Hyaline casts LM Ql (Urine sed) None seen [LPF] 0-8 [facility] Leukocytes [#/volume] correc johnnie for nucleated erythrocytes in Blood by Automated counOrdered By: Jean Paul Gutiérrez on 07-24-2023 WBC corrected for nucl RBC Auto (Bld) [#/Vol] 7.3 10*3/uL 4.1-10.5 [facility] Lipaseon 07-24-2023 Lipase [Catalytic activity/Vol] 90.0 U/L High 11.0-82.0 [facility] Comment on above: Result Comment: PERF ORMED BY: [address] [place] [address] PATHOLOGIST [employer] RAHEL TREVINO M.D. Performed By: #### C MP, CBC #### [facility] [address] [place] [address] Lipase [Enzymatic activity/v olume] in Serum or PlasmaOrdered By: Jean Paul Gutiérrez on 07-24-2023 Lipase [Catalytic activity/Vol] 90.0 U/L 11.0-82.0 [facility] Lymphocytes Auto (Bld) [#/Vo l]Ordered By: Jean Paul Gutiérrez on 07-24-2023 Lymphocytes (Bld) [#/Vol] 0.9 10*3/uL 1.00-4.8 [facility] Lymphocytes/100 WBC Auto (Bl d)Ordered By: Jean Paul Gutiérrez on 07-24-2023 Lymphocytes/100 WBC (Bld) 12.6 % . [facility] MCH Auto (RBC) [Entitic mass ]Ordered By: Jean Paul Gutiérrez on 07-24-2023 MCH (RBC) [Entitic mass] 29.8 pg 27.5-35.2 [facility] MCHC Auto (RBC) [Mass/Vol]Or dered By: Jean Paul Gutiérrez on 07-24-2023 MCHC (RBC) [Mass/Vol] 33.8 g/dL 32.5-35.6 [facility] MCV Auto (RBC) [Entitic vol] Ordered By: Jean Paul Gutiérrez on 07-24-2023 MCV (RBC) [Entitic vol] 88.1 fL 83.5-101 [facility] Magnesiumon 07-24-2023 Magnesium [Mass/Vol] 2.1 mg/dL Normal 1.9-2.[address] [facility] Comment on above: Performed By: #### C MP, CBC #### [address] Magnesium [Mass/volume] in S sadi or PlasmaOrdered By: Gela Eller on 07-24-2023 Magnesium [Mass/Vol] 2.1 mg/dL 1.9-2.[address] [facility] Monocyte distribution width [Entitic volume] in Blood by AutomatedOrdered By: Jean Paul Gutiérrez on 07-24-2023 Monocyte distribution width Auto (Bld) [Entitic vol] 21.73 % 0.00-20.00 [facility] Comment on above: For adults in ED, MD W > 20.0 may be associated with a higher risk of sepsis during the first 12 hrs of hospital admission Monocytes Auto (Bld) [#/Vol] Ordered By: Jean Paul Gutiérrez on 07-24-2023 Monocytes (Bld) [#/Vol] 0.8 10*3/uL 0.0-0.8 [facility] Monocytes/100 WBC Auto (Bld) Ordered By: Jean Paul Gutiérrez on 07-24-2023 Monocytes/100 WBC (Bld) 10.3 % . [facility] Neutrophils Auto (Bld) [#/Vo l]Ordered By: Jean Paul Gutiérrez on 07-24-2023 Neutrophils (Bld) [#/Vol] 5.5 10*3/uL 1.8-7.7 [facility] Neutrophils/100 WBC Auto (Bl d)Ordered By: Jean Paul Gutiérrez on 07-24-2023 Neutrophils/100 WBC (Bld) 75.6 % . [facility] Nitrite Test strip Ql (U)Ord ered By: Jean Paul Gutiérrez on 07-24-2023 Nitrite Ql (U) Negative Negative [facility] No Panel InformationOrdered By: Jean Paul Gutiérrez on 07-24-2023 Estimated GFR (CKD-EPI) 13.168 mL/Min [facility] Pharmacy Creatinine Clearance (Chem 15.40 [facility] Nucleated erythrocytes [Pres ence] in Blood by Automated countOrdered By: Jean Paul Gutiérrez on 07-24-2023 Nucleated RBC Auto Ql (Bld) 0.2 /100{WBC} 0-0.5 [facility] Platelet mean volume Auto (B ld) [Entitic vol]Ordered By: Jean Paul Gutiérrez on 07-24-2023 Platelet mean volume (Bld) [Entitic vol] 10.8 fL 6.6-10.1 [facility] Platelets Auto (Bld) [#/Vol] Ordered By: Jean Paul Gutiérrez on 07-24-2023 Platelets (Bld) [#/Vol] 256 10*3/uL 150-450 [facility] Potassium [Moles/volume] in Serum or PlasmaOrdered By: Jean Paul Gutiérrez on 07-24-2023 Potassium [Moles/Vol] 2.9 mmol/L 3.5-5.1 [facility] Comment on above: Critical Result Call ed to and read back by: ANDREAS CARABALLO at: 07/24/2023 13:30:58 by:MLG Protein Auto test strip (U) [Mass/Vol]Ordered By: Jean Paul Gutiérrez on 07-24-2023 Protein (U) [Mass/Vol] 30 mg/dL Negative [facility] Protein [Mass/volume] in Ser um or PlasmaOrdered By: Jean Paul Gutiérrez on 07-24-2023 Protein [Mass/Vol] 7.8 g/dL 6.4-8.9 [facility] Prothrombin Time INRon 07-24 INR Coag (PPP) [Relative time] 1.0 {INR} Normal [facility] Comment on above: Result Comment: INR Therapeutic [...] heart valves: 3 - 4.5 PERFORMED BY: [place] [address] PATHOLOGIST [employer] RAHEL TREVINO M.D. Performed By: #### C MP, CBC #### [facility] [address] [place] [address] PT Coag (PPP) [Time] 12.2 s Normal 9.0-12.[address] [facility] Comment on above: Result Comment: A he matocrit value greater than 55% may lead to inaccurate results in coagulation testing. Patients having hematocrit values >55% require a special collection tube for coagulation studies. Please contact the laboratory at [phone] for redraw instructions. Performed By: #### C MP, CBC #### [facility] [address] [place], [place] [id number] [facility] Prothrombin time (PT)Ordered By: Jean Paul Gutiérrez on 07-24-2023 PT Coag (PPP) [Time] 12.2 s 9.0-12.[address] [facility] Comment on above: A hematocrit value g reater than 55% may lead to inaccurate results in coagulation testing. Patients having hematocrit values >55% require a special collection tube for coagulation studies. Please contact the laboratory at [phone] for redraw instructions. RBC Auto (Bld) [#/Vol]Ordere d By: Jean Paul Gutiérrez on 07-24-2023 RBC (Bld) [#/Vol] 4.60 10*6/uL 3.90-5.60 [facility] Serum or plasma albumin/glob ulin mass ratioOrdered By: Jean Paul Gutiérrez on 07-24-2023 Albumin/Globulin [Mass ratio] 1.2 {ratio} [facility] Serum or plasma anion gap de terminationOrdered By: Jean Paul Gutiérrez on 07-24-2023 Anion gap [Moles/Vol] 18.0 mmol/L 6.0-15.0 [facility] Serum or plasma non-glucuron idated bilirubin measurement (mass/volume)Ordered By: Jean Paul Gutiérrez on 07-24-2023 Bilirubin.indirect [Mass/Vol] 0.6 mg/dL [facility] Sodium [Moles/volume] in Ser um or PlasmaOrdered By: Jean Paul Gutiérrez on 07-24-2023 Sodium [Moles/Vol] 134 mmol/L 136-145 [facility] Sodium [Moles/volume] in Uri neOrdered By: Gela Eller on 07-24-2023 Sodium (U) [Moles/Vol] 41 mmol/L [facility] Comment on above: No reference range e stablished Specific gravity Auto test s trip (U) [Rel density]Ordered By: Jean Paul Gutiérrez on 07-24-2023 Specific gravity (U) [Rel density] 1.015 1.001-1.03 0 [facility] Squamous epithelial cells de tection in urine sediment by light microscopyOrdered By: Jean Paul Gutiérrez on 07-24-2023 Epithelial cells.squamous LM Ql (Urine sed) None seen [HPF] 0-2 [facility] Troponin I High Sensitivityo n 07-24-2023 Troponin I High Sensitivity 11.8 pg/mL Normal 0.0-20.0 [facility] Comment on above: Result Comment: PERF ORMED BY: [facility] [address] [place] [address] PATHOLOGIST [employer] RAHEL TREVINO M.D. Performed By: #### C MP, CBC #### [address] Troponin I.cardiac [Mass/vol ume] in Serum or Plasma by Detection limit <= 0.01 ng/Ordered By: Jean Paul Gutiérrez on 07-24-2023 Troponin I.cardiac DL <= 0.01 ng/mL [Mass/Vol] 11.8 pg/mL 0.0-20.0 [facility] Urea nitrogen [Mass/volume] in Serum or PlasmaOrdered By: Jean Paul Gutiérrez on 07-24-2023 Urea nitrogen [Mass/Vol] 56 mg/dL 7-25 [facility] Urine bacteria detection by automated methodOrdered By: Jean Paul Gutiérrez on 07-24-2023 Bacteria Auto Ql (U) None seen None Seen [facility] Urine clarity by refractomet ry automatedOrdered By: Jean Paul Gutiérrze on 07-24-2023 Clarity Refractometry automated (U) Clear Clear [facility] Urine glucose measurement by automated test strip (mass/volume)Ordered By: Jean Paul Gutiérrez on 07-24-2023 Glucose Auto test strip (U) [Mass/Vol] Normal mg/dL Normal [facility] Urine hemoglobin detection b y automated test stripOrdered By: Jean Paul Gutiérrez on 07-24-2023 Hemoglobin Auto test strip Ql (U) Negative Negative [facility] Urine leukocyte esterase det ection by automated test stripOrdered By: Jean Paul Gutiérrez on 07-24-2023 Leukocyte esterase Auto test strip Ql (U) Negative Negative [facility] Urobilinogen Auto test strip (U) [Mass/Vol]Ordered By: Jean Paul Gutiérrez on 07-24-2023 Urobilinogen (U) [Mass/Vol] Normal mg/dL Normal [facility] WBC Auto (Bld) [#/Vol]Ordere d By: Jean Paul Gutiérrez on 07-24-2023 WBC (Bld) [#/Vol] 7.3 10*3/uL 4.1-10.5 [facility] pH Auto test strip (U)Ordere d By: Jean Paul Gutiérrez on 07-24-2023 pH (U) 5.5 [pH] 5.0-9.0 [facility] Tobacco Screening.on 023 Tobacco use status [facility]PH[facility] b) No [facility] [address] DO Work Phone: Activated partial thrombopla stin time (aPTT) in platelet poor plasma by coagulation aOrdered By: Joselito Madsen on 01-15-2023 aPTT Coag (PPP) [Time] 29.1 s 25.1-36.5 [facility] Basophils Auto (Bld) [#/Vol] Ordered By: Joselito Madsen on 01-15-2023 Basophils (Bld) [#/Vol] 0.0 10*3/uL 0.0-0.2 [facility] Basophils/100 WBC Auto (Bld) Ordered By: Joselito Madsen on 01-15-2023 Basophils/100 WBC (Bld) 0.7 % . [facility] Blood Urea Nitrogenon 2022 Urea nitrogen [Mass/Vol] 19 mg/dL Normal 7-25 [facility] Comment on above: Performed By: #### C REAT, PP, LYTES, LIPID, CBC, BUN #### [address] Carbon dioxide, total [Moles /volume] in Serum or PlasmaOrdered By: Joselito Madsen on 01-15-2023 CO2 [Moles/Vol] 24.1 mmol/L 21.0-31.0 [facility] Chloride [Moles/volume] in S sadi or PlasmaOrdered By: Joselito Madsen on 01-15-2023 Chloride [Moles/Vol] 108 mmol/L 98-[address] [facility] Cholesterol [Mass/volume] in Serum or PlasmaOrdered By: Joselito Madsen on 01-15-2023 Cholesterol [Mass/Vol] 123 mg/dL 140-200 [facility] Comment on above: Chol less than 200 m g/dl low riskChol 201-239 mg/dl borderline riskChol 240 mg/dl and greater high risk Cholesterol in LDL Calc [Mas s/Vol]Ordered By: Joselito Madsen on 01-15-2023 Cholesterol in LDL [Mass/Vol] 49 mg/dL 0-100 [facility] Comment on above: LDL ATP III CLASSIFI CATIONLDL less than 100 mg/dL OptimalLDL 100-129 mg/dL Near or above optimalLDL 130-159 mg/dL Borderline highLDL 160-189 mg/dL HighLDL greater than 189 mg/dL Very high Cholesterol in VLDL Calc [Ma ss/Vol]Ordered By: Joselito Madsen on 01-15-2023 Cholesterol in VLDL [Mass/Vol] 10 mg/dL [facility] Coagulation Profileon 2022 aPTT Coag (Bld) [Time] 29.1 s Normal 25.1-36.5 [facility] Comment on above: Result Comment: PERF ORMED BY: [place] [address] PATHOLOGIST [employer] RAHEL TREVINO M.D. Performed By: #### C REAT, PP, LYTES, LIPID, CBC, BUN #### [address] INR Coag (PPP) [Relative time] 1.0 {INR} Normal [facility] Comment on above: Result Comment: INR Therapeutic [...] REAT, PP, LYTES, LIPID, CBC, BUN #### [facility] [address] [place] [address] PT Coag (PPP) [Time] 11.0 s Normal 9.0-12.[address] [facility] Comment on above: Performed By: #### C REAT, PP, LYTES, LIPID, CBC, BUN #### [address] Complete Blood Count Auto Di ffon 01-15-2023 Basophils (Bld) [#/Vol] 0.0 10*3/uL Normal 0.0-0.2 [facility] Comment on above: Result Comment: PERF ORMED BY: [place] [address] PATHOLOGIST [employer] RAHEL TREVINO M.D. Performed By: #### C REAT, PP, LYTES, LIPID, CBC, BUN #### [address] Basophils/100 WBC (Bld) 0.7 % Normal . [facility] Comment on above: Performed By: #### C REAT, PP, LYTES, LIPID, CBC, BUN #### [address] Eosinophils (Bld) [#/Vol] 0.5 10*3/uL High 0.0-0.45 [facility] Comment on above: Performed By: #### C REAT, PP, LYTES, LIPID, CBC, BUN #### [address] Eosinophils/100 WBC (Bld) 9.6 % Normal . [facility] Comment on above: Performed By: #### C REAT, PP, LYTES, LIPID, CBC, BUN #### [address] Erythrocyte distribution width (RBC) [Ratio] 13.3 % Normal 12.0-14.8 [facility] Comment on above: Performed By: #### C REAT, PP, LYTES, LIPID, CBC, BUN #### [address] Hematocrit (Bld) [Volume fraction] 38.8 % Normal 38.8-50.0 [facility] Comment on above: Performed By: #### C REAT, PP, LYTES, LIPID, CBC, BUN #### [address] Hemoglobin (Bld) [Mass/Vol] 12.7 g/dL Low 13.0-17.0 [facility] Comment on above: Performed By: #### C REAT, PP, LYTES, LIPID, CBC, BUN #### [address] Lymphocytes (Bld) [#/Vol] 1.0 10*3/uL Normal 1.00-4.8 [facility] Comment on above: Performed By: #### C REAT, PP, LYTES, LIPID, CBC, BUN #### [address] Lymphocytes/100 WBC (Bld) 19.2 % Normal . [facility] Comment on above: Performed By: #### C REAT, PP, LYTES, LIPID, CBC, BUN #### [address] MCH (RBC) [Entitic mass] 29.2 pg Normal 27.5-35.2 [facility] Comment on above: Performed By: #### C REAT, PP, LYTES, LIPID, CBC, BUN #### [address] MCV (RBC) [Entitic vol] 89.1 fL Normal 83.5-101 [facility] Comment on above: Performed By: #### C REAT, PP, LYTES, LIPID, CBC, BUN #### [address] Mean Corpuscular HGB Conc 32.7 g/dL Normal 32.5-35.6 [facility] Comment on above: Performed By: #### C REAT, PP, LYTES, LIPID, CBC, BUN #### [address] Monocytes (Bld) [#/Vol] 0.9 10*3/uL High 0.0-0.8 [facility] Comment on above: Performed By: #### C REAT, PP, LYTES, LIPID, CBC, BUN #### [address] Monocytes/100 WBC (Bld) 17.1 % Normal . [facility] Comment on above: Performed By: #### C REAT, PP, LYTES, LIPID, CBC, BUN #### [address] Neutrophils (Bld) [#/Vol] 2.7 10*3/uL Normal 1.8-7.7 [facility] Comment on above: Performed By: #### C REAT, PP, LYTES, LIPID, CBC, BUN #### [address] Neutrophils/100 WBC (Bld) 53.4 % Normal . [facility] Comment on above: Performed By: #### C REAT, PP, LYTES, LIPID, CBC, BUN #### [address] NRBC% 0.1 /100{WBC} Normal 0-0.5 [facility] Comment on above: Performed By: #### C REAT, PP, LYTES, LIPID, CBC, BUN #### [address] Platelet mean volume (Bld) [Entitic vol] 9.0 fL Normal 6.6-10.1 [facility] Comment on above: Performed By: #### C REAT, PP, LYTES, LIPID, CBC, BUN #### [address] Platelets (Bld) [#/Vol] 170 10*3/uL Normal 150-450 [facility] Comment on above: Performed By: #### C REAT, PP, LYTES, LIPID, CBC, BUN #### [address] RBC (Bld) [#/Vol] 4.36 10*6/uL Normal 3.90-5.60 [facility] Comment on above: Performed By: #### C REAT, PP, LYTES, LIPID, CBC, BUN #### [address] WBC (Bld) [#/Vol] 5.0 10*3/uL Normal 4.1-10.5 [facility] Comment on above: Performed By: #### C REAT, PP, LYTES, LIPID, CBC, BUN #### [address] Creatinineon 01-15-2023 Creatinine [Mass/Vol] 1.22 mg/dL Normal 0.70-1.30 [facility] Comment on above: Performed By: #### C REAT, PP, LYTES, LIPID, CBC, BUN #### [facility] [address] GFR/1.73 sq M.predicted MDRD (S/P/Bld) [Vol rate/Area] mL/min/{1.73_m2} [facility] Comment on above: Performed By: #### C REAT, PP, LYTES, LIPID, CBC, BUN #### [facility] [address] Creatinine [Mass/volume] in Serum or PlasmaOrdered By: Joselito Madsen on 01-15-2023 Creatinine [Mass/Vol] 1.22 mg/dL 0.70-1.30 [facility] ECG 12 lead ECGon 01-15-2023 ECG 12 lead ECG [facility] [place] [address] [place] [address] Electrocardiograph Report Signed Patient: Aisha Julien MR#: [id number] 79 : 1955 Acct:[id number] Age/Sex: 67 / M ADM Date: 01/15/23 Loc: Room: Type: [facility] Attending Dr: Joselito Madsen DO Ordering Provider: Joselito Madsen DO Date of Service: 01/15/23 ECG/ECG 12 lead ECG: [facility] Copies to: Test Reason : Blood Pressure [...] Electronically Signed By:PATY MACKEY MD Transcribed By: [facility] Signed By Paty Mackey MD 1943 [facility] Electrolyteson 01-15-2023 Anion gap [Moles/Vol] 10.5 mmol/L Normal 6.0-15.0 [facility] Comment on above: Performed By: #### C REAT, PP, LYTES, LIPID, CBC, BUN #### [facility] [address] Chloride [Moles/Vol] 108 mmol/L High 98-[address] [facility] Comment on above: Performed By: #### C REAT, PP, LYTES, LIPID, CBC, BUN #### [facility] [address] CO2 [Moles/Vol] 24.1 mmol/L Normal 21.0-31.0 [facility] Comment on above: Performed By: #### C REAT, PP, LYTES, LIPID, CBC, BUN #### [facility] [address] Potassium [Moles/Vol] 4.6 mmol/L Normal 3.5-5.1 [facility] Comment on above: Performed By: #### C REAT, PP, LYTES, LIPID, CBC, BUN #### [facility] [address] Sodium [Moles/Vol] 138 mmol/L Normal 136-145 [facility] Comment on above: Performed By: #### C REAT, PP, LYTES, LIPID, CBC, BUN #### [address] Eosinophils Auto (Bld) [#/Vo l]Ordered By: Joselito Masden on 01-15-2023 Eosinophils (Bld) [#/Vol] 0.5 10*3/uL 0.0-0.45 [facility] Eosinophils/100 WBC Auto (Bl d)Ordered By: Joselito Madsen on 01-15-2023 Eosinophils/100 WBC (Bld) 9.6 % . [facility] Erythrocyte distribution wid th Auto (RBC) [Ratio]Ordered By: Joselito Madsen on 01-15-2023 Erythrocyte distribution width (RBC) [Ratio] 13.3 % 12.0-14.8 [facility] Hematocrit Auto (Bld) [Volum e fraction]Ordered By: Joselito Madsen on 01-15-2023 Hematocrit (Bld) [Volume fraction] 38.8 % 38.8-50.0 [facility] Hemoglobin [Mass/volume] in BloodOrdered By: Joselito Madsen on 01-15-2023 Hemoglobin (Bld) [Mass/Vol] 12.7 g/dL 13.0-17.0 [facility] Laboratory - Chemistry and C hemistry - challengeon 01-15-2023 Cholesterol [Mass/Vol] 123\S\123 below low threshold 140-200 -[facility] y 250 DO Work Phone: Comment on above: Chol less than 200 m g/dl low risk Chol 201-239 mg/dl borderline risk Chol 240 mg/dl and greater high risk Cholesterol in LDL [Mass/Vol] 49\S\49 Normal 0-100 -[facility] y 250 DO Work Phone: Comment on above: LDL ATP III CLASSIFI CATION LDL less than 100 mg/dL Optimal LDL 100-129 mg/dL Near or above optimal LDL 130-159 mg/dL Borderline high LDL 160-189 mg/dL High LDL greater than 189 mg/dL Very high Laboratory - CoagulationOrde red By: Joselito Madsen on 01-15-2023 PT Coag (PPP) [Time] 11.0 s 9.0-12.[address] [facility] Leukocytes [#/volume] correc johnnie for nucleated erythrocytes in Blood by Automated counOrdered By: Joselito Madsen on 01-15-2023 WBC corrected for nucl RBC Auto (Bld) [#/Vol] 5.0 10*3/uL 4.1-10.5 [facility] Lipid Panelon 01-15-2023 Cholesterol [Mass/Vol] 123 mg/dL Low 140-200 [facility] Comment on above: Result Comment: Chol less than 200 mg/dl low risk Chol 201-239 mg/dl borderline risk Chol 240 mg/dl and greater high risk Performed By: #### C MP, CBC #### [facility] [address] Cholesterol in HDL [Mass/Vol] 64 mg/dL Normal 29-71 [facility] Comment on above: Result Comment: HDL CHOL ATP-III CLASSIFICATION Cardiovascular Risk HDL > or equal to 60 mg/dL LOW HDL < 40 mg/dL HIGH Performed By: #### C MP, CBC #### [address] Cholesterol.total/Cho lesterol in HDL [Mass ratio] 1.9 {ratio} Normal <5.0 [facility] Comment on above: Result Comment: PERF ORMED BY: [place] [address] PATHOLOGIST [employer] RAHEL TREVINO M.D. Performed By: #### C MP, CBC #### [address] LDL Cholesterol,Calculate d 49 mg/dL Normal 0-100 [facility] Comment on above: Result Comment: LDL ATP III CLASSIFICATION LDL less than 100 mg/dL Optimal LDL 100-129 mg/dL Near or above optimal LDL 130-159 mg/dL Borderline high LDL 160-189 mg/dL High LDL greater than 189 mg/dL Very high Performed By: #### C MP, CBC #### [address] Triglyceride w/Reflex 51 mg/dL Normal 0-149 [facility] Comment on above: Result Comment: TRIG ATP III CLASSIFICATION TRIG less than 150 mg/dL Normal TRIG 150-199 mg/dL Borderline high TRIG 200-500 mg/dL High TRIG greater than 500 mg/dL Very high Standard traceable to the Center for Disease Conrtrol and Prevention (CDC) test method. Performed By: #### C MP, CBC #### [facility] [address] [place] [address] VLDL CHOLESTEROL 10 mg/dL Normal [facility] Comment on above: Performed By: #### C MP, CBC #### [address] Lymphocytes Auto (Bld) [#/Vo l]Ordered By: Joselito Madsen on 01-15-2023 Lymphocytes (Bld) [#/Vol] 1.0 10*3/uL 1.00-4.8 [facility] Lymphocytes/100 WBC Auto (Bl d)Ordered By: Joselito Madsen on 01-15-2023 Lymphocytes/100 WBC (Bld) 19.2 % . [facility] MCH Auto (RBC) [Entitic mass ]Ordered By: Joselito Madsen on 01-15-2023 MCH (RBC) [Entitic mass] 29.2 pg 27.5-35.2 [facility] MCHC Auto (RBC) [Mass/Vol]Or dered By: Joselito Madsen on 01-15-2023 MCHC (RBC) [Mass/Vol] 32.7 g/dL 32.5-35.6 [facility] MCV Auto (RBC) [Entitic vol] Ordered By: Joselito Madsen on 01-15-2023 MCV (RBC) [Entitic vol] 89.1 fL 83.5-101 [facility] Monocytes Auto (Bld) [#/Vol] Ordered By: Joselito Madsen on 01-15-2023 Monocytes (Bld) [#/Vol] 0.9 10*3/uL 0.0-0.8 [facility] Monocytes/100 WBC Auto (Bld) Ordered By: Joselito Madsen on 01-15-2023 Monocytes/100 WBC (Bld) 17.1 % . [facility] Neutrophils Auto (Bld) [#/Vo l]Ordered By: Joselito Madsen on 01-15-2023 Neutrophils (Bld) [#/Vol] 2.7 10*3/uL 1.8-7.7 [facility] Neutrophils/100 WBC Auto (Bl d)Ordered By: Joselito Madsen on 01-15-2023 Neutrophils/100 WBC (Bld) 53.4 % . [facility] No Panel InformationOrdered By: Joselito Madsen on 01-15-2023 Estimated GFR (CKD-EPI) > 60.0 mL/Min [facility] Pharmacy Creatinine Clearance (Chem N/A [facility] No Panel Informationon 01-15 0.0\S\0.0 Normal 0.0-0.2 -[facility] [address] DO Work Phone: Comment on above: PERFORMED BY:[place] [address] [address] [place], [place] [id number] MEDICAL DIRECTORRAHEL TREVINO M.D. 0.5\S\0.5 above high threshold 0.0-0.45 -[facility] [address] DO Work Phone: [phone] 0.9\S\0.9 above high threshold 0.0-0.8 [facility] [address] DO Work Phone: [phone] 1.0\S\1.0 Normal -[facility] DO Work Phone: [phone] Comment on above: INR Therapeutic Rang e [...] valves: 3 - 4.5 2.7\S\2.7 Normal 1.8-7.7 [facility] [address] DO Work Phone: [phone] 0.1\S\0.1 Normal 0-0.5 -[facility] DO Work Phone: [phone] 0.7\S\0.7 Normal . [facility] [address] DO Work Phone: [phone] 9.6\S\9.6 Normal . [facility] [address] DO Work Phone: [phone] 17.1\S\17.1 Normal . [facility] DO Work Phone: [phone] 19.2\S\19.2 Normal . [facility] DO Work Phone: [phone] 53.4\S\53.4 Normal . [facility] DO Work Phone: [phone] 9.0\S\9.0 Normal 6.6-10.1 [facility] [address] DO Work Phone: [phone] 170\S\170 Normal 150-450 [facility] [address] DO Work Phone: 13.3\S\13.3 Normal 12.0-14.8 [facility] [address] DO Work Phone: [phone] 32.7\S\32.7 Normal 32.5-35.6 [facility] DO Work Phone: 29.2\S\29.2 Normal 27.5-35.2 [facility] [address] DO Work Phone: [phone] 89.1\S\89.1 Normal 83.5-101 [facility] DO Work Phone: [phone] 38.8\S\38.8 Normal 38.8-50.0 [facility] DO Work Phone: [phone] 12.7\S\12.7 below low threshold 13.0-17.0 [facility] DO Work Phone: [phone] 4.36\S\4.36 Normal 3.90-5.60 [facility] DO Work Phone: [phone] 5.0\S\5.0 Normal 4.1-10.5 [facility] DO Work Phone: [phone] 29.1\S\29.1 Normal 25.1-36.5 [facility] [address] DO Work Phone: [phone] Comment on above: PERFORMED BY:[place] [address] [place] [place], [place] [id number] MEDICAL DIRECTORRAHEL TREVINO M.D. 11.0\S\11.0 Normal 9.0-12.9 [facility] DO Work Phone: [phone] 10.5\S\10.5 Normal 6.0-15.0 [facility] DO Work Phone: 24.1\S\24.1 Normal 21.0-31.0 [facility] DO Work Phone: [phone] 108\S\108 above high threshold 98-107 [facility] 250 DO Work Phone: [phone] 4.6\S\4.6 Normal 3.5-5.1 [facility] DO Work Phone: [phone] 138\S\138 Normal 136-145 [facility] [address] DO Work Phone: [phone] 19\S\19 Normal 7-25 [facility] [address] DO Work Phone: [phone] > 60.0 Normal [facility] [address] DO Work Phone: [phone] 1.22\S\1.22 Normal 0.70-1.30 [facility] [address] DO Work Phone: [phone] 1.9\S\1.9 Normal <5.0 [facility] [address] DO Work Phone: [phone] Comment on above: PERFORMED BY:[place] [address] [place], [place] [id number] MEDICAL DIRECTORRAHEL TREVINO M.D. 10\S\10 Normal [facility] DO Work Phone: [phone] 51\S\51 Normal 0-149 [facility] DO Work Phone: [phone] Comment on above: TRIG ATP III CLASSIF ICATION TRIG less than 150 mg/dL Normal TRIG 150-199 mg/dL Borderline high TRIG 200-500 mg/dL High TRIG greater than 500 mg/dL Very high Standard traceable to the Center for Disease Conrtrol and Prevention (CDC) test method. 64\S\64 Normal 29-71 [facility] [facility] DO Work Phone: Comment on above: HDL CHOL ATP-III CLA SSIFICATION Cardiovascular Risk HDL > or equal to 60 mg/dL LOW HDL < 40 mg/dL HIGH Nucleated erythrocytes [Pres ence] in Blood by Automated countOrdered By: Joselito Madsen on 01-15-2023 Nucleated RBC Auto Ql (Bld) 0.1 /100{WBC} 0-0.5 [facility] Platelet mean volume Auto (B ld) [Entitic vol]Ordered By: Joselito Madsen on 01-15-2023 Platelet mean volume (Bld) [Entitic vol] 9.0 fL 6.6-10.1 [facility] Platelet poor plasma interna tional normalized ratio (INR) by coagulation assay (relatOrdered By: Joselito Madsen on 01-15-2023 INR Coag (PPP) [Relative time] 1.0 {INR} [facility] Comment on above: INR Therapeutic Rang e [...] 01-15-2023 Platelets (Bld) [#/Vol] 170 10*3/uL 150-450 [facility] Potassium [Moles/volume] in Serum or PlasmaOrdered By: Joselito Madsen on 01-15-2023 Potassium [Moles/Vol] 4.6 mmol/L 3.5-5.1 [facility] RBC Auto (Bld) [#/Vol]Ordere d By: Joselito Madsen on 01-15-2023 RBC (Bld) [#/Vol] 4.36 10*6/uL 3.90-5.60 [facility] Serum or plasma anion gap de terminationOrdered By: Joselito Madsen on 01-15-2023 Anion gap [Moles/Vol] 10.5 mmol/L 6.0-15.0 [facility] Serum or plasma high density lipoprotein (HDL) cholesterol measurementOrdered By: Joselito Madsen on 01-15-2023 Cholesterol in HDL [Mass/Vol] 64 mg/dL 29- [facility] Comment on above: HDL CHOL ATP-III CLA SSIFICATION Cardiovascular RiskHDL > or equal to 60 mg/dL LOWHDL < 40 mg/dL HIGH Serum or plasma total choles terol/high density lipoprotein (HDL) cholesterol mass ratOrdered By: Joselito Madsen on 01-15-2023 Cholesterol.total/Cho lesterol in HDL [Mass ratio] 1.9 {ratio} <5.0 [facility] Sodium [Moles/volume] in Ser um or PlasmaOrdered By: Joselito Madsen on 01-15-2023 Sodium [Moles/Vol] 138 mmol/L 136-145 [facility] Triglyceride [Mass/volume] i n Serum or PlasmaOrdered By: Joselito Madsen on 01-15-2023 Triglyceride [Mass/Vol] 51 mg/dL 0-149 [facility] Comment on above: TRIG ATP III CLASSIF ICATIONTRIG less than 150 mg/dL NormalTRIG 150-199 mg/dL Borderline highTRIG 200-500 mg/dL High TRIG greater than 500 mg/dL Very highStandard traceable to the Center for Disease Conrtrol and Prevention (CDC) test method. Urea nitrogen [Mass/volume] in Serum or PlasmaOrdered By: Joselito Madsen on 01-15-2023 Urea nitrogen [Mass/Vol] 19 mg/dL 7-25 [facility] WBC Auto (Bld) [#/Vol]Ordere d By: Joselito Madsen on 01-15-2023 WBC (Bld) [#/Vol] 5.0 10*3/uL 4.1-10.5 [facility] Tobacco Screening.on 023 Adult depression screening assessment No [facility] DO Work Phone: Fall risk assessment a) No falls within the last year [facility] DO Work Phone: Tobacco use status CP b) No [facility] 250 DO Work Phone: EVENT MONITORon 12-13-2021 EVENT MONITOR [address] [address] EVENT MONITOR PATIENT NAME: AISHA JULIEN : 1955 MED REC NO: [id number] ROOM: ACCOUNT NO: [id number] ADMIT DATE: 11/07/2021 PROVIDER: Inocencio Gutierrez NAME [...] for symptom control. INOCENCIO GUTIERREZ GV/V_TTHEN_I Doc#: [id number] CC: Rene Cannon [facility] CARDIAC STRESS TESTon 2021 CARDIAC STRESS TEST [address] [address] CARDIAC STRESS TEST PATIENT NAME: AISHA JULIEN : 1955 MED REC NO: [id number] ROOM: ACCOUNT NO: [id number] ADMIT DATE: 11/07/2021 PROVIDER: Inocencio Gutierrez DATE [...] remained at 96%. INOCENCIO GUTIERREZ GV/[id number]_I Doc#: [id number] CC: Rene aCnnon Normal [facility] CARDIAC STRESS TESTon 2021 CARDIAC STRESS TEST [address] [address] CARDIAC STRESS TEST PATIENT NAME: AISHA JULIEN : 1955 MED REC NO: [id number] ROOM: ACCOUNT NO: [id number] ADMIT DATE: 11/07/2021 PROVIDER: Karina Fajardo MD [...] Dr. Gutierrez on 11/07/2021. KARINA FAJARDO MD LAURYNJenelleDICKSONCHRIS_DESTINEESTEPHANI Doc#: Unknown CC: Rene Gutierrez Normal [facility] NM MYOCARDIAL SPECT REST EXE RCISE OR RXon 11-07-2021 NM MYOCARDIAL SPECT REST EXERCISE OR RX Radiology exam is complete. No Radiologist dictation. Please follow up with ordering provider. Final result Normal [facility] No Panel Informationon 11-07 Radiology exam is complete. No Radiologist dictation. Please follow up with ordering provider. [facility] CONSOLIDATED STRESS TEST REPORTon 022 Karina Fajardo MD - 11/07/2021 1:54 [place] [address] CARDIAC STRESS TEST PATIENT NAME: AISHA JULIEN : 1955 MED REC NO: [id number] ROOM: ACCOUNT NO: [id number] ADMIT DATE: 11/07/2021 PROVIDER: Karina Fajardo MD [...] MD LAURYN/CIARAN_RALF Doc#: Unknown CC: Rene Gutierrez [facility] 1Lay Work Phone: [facility] Work Phone: VL DUP CAROTID BILATERALon 0 11-07-2021 VL DUP CAROTID BILATERAL Radiology exam is complete. No Radiologist dictation. Please follow up with ordering provider. 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 - Additional Measurements:ICAPSV/CCAPSV 0.63.ICAEDV/CCAEDV 1.31. [facility] Phone: Radiology Study observation (narrative) [facility] Phone: VL DUP CAROTID BILATERALOrde red By: Bryan Pichardo on 11-07-2021 [facility] Phone: XR CHEST 2 Von 10-31-2021 XR [...] No acute disease. Electronically authenticated by: DEBORAH EPRALTA Date: 2021-10-31 13:46 Normal [facility] Complete Blood Count with Au to Diffon 10-16-2021 Basophils (Bld) [#/Vol] 0.04 10*3/uL Normal 0.00-0.20 [facility] [employer] Comment on above: Performed By: #### C MP, TSH reflex FT4, CBCAD, MG, VITD, LIPD #### [facility] [address], [place] [id number] Basophils/100 WBC (Bld) 0.7 % Normal [facility] Specialist Comment on above: Performed By: #### C MP, TSH reflex FT4, CBCAD, MG, VITD, LIPD #### [facility] [address], [place] [id number] Eosinophils (Bld) [#/Vol] 0.12 10*3/uL Normal 0.02-0.50 [facility] [employer] Comment on above: Performed By: #### C MP, TSH reflex FT4, CBCAD, MG, VITD, LIPD #### [facility] [address], [place] [id number] Eosinophils/100 WBC (Bld) 2.2 % Normal [facility] [employer] Comment on above: Performed By: #### C MP, TSH reflex FT4, CBCAD, MG, VITD, LIPD #### [facility] [address], [place] [id number] Erythrocyte distribution width (RBC) [Ratio] 14.5 % Normal 11.0-15.0 [facility] [employer] Comment on above: Performed By: #### C MP, TSH reflex FT4, CBCAD, MG, VITD, LIPD #### [facility] [address], [place] [id number] Hematocrit (Bld) [Volume fraction] 38.2 % Low 38.5-50.0 [facility] Specialist Comment on above: Performed By: #### C MP, TSH reflex FT4, CBCAD, MG, VITD, LIPD #### [facility] [address], [place] [id number] Hemoglobin (Bld) [Mass/Vol] 12.3 g/dL Low 13.0-17.1 [facility] [employer] Comment on above: Performed By: #### C MP, TSH reflex FT4, CBCAD, MG, VITD, LIPD #### [facility] [address], [place] [id number] Lymphocytes (Bld) [#/Vol] 1.2 10*3/uL Normal 0.9-3.9 [facility] Specialist Comment on above: Performed By: #### C MP, TSH reflex FT4, CBCAD, MG, VITD, LIPD #### [facility] [address], [place] [id number] Lymphocytes/100 WBC (Bld) 22.1 % Normal [facility] Specialist Comment on above: Performed By: #### C MP, TSH reflex FT4, CBCAD, MG, VITD, LIPD #### [facility] [address], [place] [id number] MCH (RBC) [Entitic mass] 29.4 pg Normal 27.0-33.0 [facility] [employer] Comment on above: Performed By: #### C MP, TSH reflex FT4, CBCAD, MG, VITD, LIPD #### [facility] [address], [place] [id number] MCHC (RBC) [Mass/Vol] 32.2 g/dL Normal 32.0-36.0 [facility] Specialist Comment on above: Performed By: #### C MP, TSH reflex FT4, CBCAD, MG, VITD, LIPD #### [facility] [address], [place] [id number] MCV (RBC) [Entitic vol] 91 fL Normal 80-100 [place] [employer] Comment on above: Performed By: #### C MP, TSH reflex FT4, CBCAD, MG, VITD, LIPD #### [facility] [address], [place] [id number] Monocytes (Bld) [#/Vol] 0.9 10*3/uL Normal 0.2-0.9 [facility] Specialist Comment on above: Performed By: #### C MP, TSH reflex FT4, CBCAD, MG, VITD, LIPD #### [facility] [address], [place] [id number] Monocytes/100 WBC (Bld) 16.4 % Normal [facility] Specialist Comment on above: Performed By: #### C MP, TSH reflex FT4, CBCAD, MG, VITD, LIPD #### [facility] [address], [place] [id number] Neutrophils (Bld) [#/Vol] 3.1 10*3/uL Normal 1.5-7.8 [facility] Specialist Comment on above: Performed By: #### C MP, TSH reflex FT4, CBCAD, MG, VITD, LIPD #### [facility] [address], [place] [id number] Neutrophils/100 WBC (Bld) 57.5 % Normal [facility] Specialist Comment on above: Performed By: #### C MP, TSH reflex FT4, CBCAD, MG, VITD, LIPD #### [facility] [address], [place] [id number] Platelet mean volume (Bld) [Entitic vol] 10.30 fL Normal 7.50-12.50 [facility] Specialist Comment on above: Performed By: #### C MP, TSH reflex FT4, CBCAD, MG, VITD, LIPD #### [facility] [address], [place] [id number] Platelets (Bld) [#/Vol] 266 10*3/uL Normal 140-400 [facility] Specialist Comment on above: Performed By: #### C MP, TSH reflex FT4, CBCAD, MG, VITD, LIPD #### [facility] [address], [place] [id number] RBC (Bld) [#/Vol] 4.19 10*6/uL Low 4.20-5.80 [facility] Specialist Comment on above: Performed By: #### C MP, TSH reflex FT4, CBCAD, MG, VITD, LIPD #### [facility] [address], [place] [id number] RDW-SD 48.1 fL Normal 37.0-50.0 [facility] [employer] Comment on above: Performed By: #### C MP, TSH reflex FT4, CBCAD, MG, VITD, LIPD #### [facility] [address], [place] [id number] WBC (Bld) [#/Vol] 5.4 10*3/uL Normal 3.8-11.0 [facility] [employer] Comment on above: Performed By: #### C MP, TSH reflex FT4, CBCAD, MG, VITD, LIPD #### [facility] [address], [place] [id number] Comprehensive Metabolic Pane jefry 10-16-2021 Albumin [Mass/Vol] 4.2 g/dL Normal 3.6-5.1 [facility] [employer] Comment on above: Performed By: #### C MP, TSH reflex FT4, CBCAD, MG, VITD, LIPD #### [facility] [address], [place] [id number] Albumin/Globulin [Mass ratio] 1.6 {ratio} Normal 1.0-2.5 [facility] [employer] Comment on above: Performed By: #### C MP, TSH reflex FT4, CBCAD, MG, VITD, LIPD #### [facility] [address], [place] [id number] ALP [Catalytic activity/Vol] 103 U/L Normal 40-129 [facility] [employer] Comment on above: Performed By: #### C MP, TSH reflex FT4, CBCAD, MG, VITD, LIPD #### [facility] [address], [place] [id number] ALT [Catalytic activity/Vol] 11 U/L Normal 9-46 [facility] [employer] Comment on above: Result Comment: 07/25 Female reference range changed. Performed By: #### C MP, TSH reflex FT4, CBCAD, MG, VITD, LIPD #### [facility] [address], [place] [id number] Anion gap [Moles/Vol] 19 mmol/L Normal 12-20 [facility] Comment on above: Result Comment: Effbillie ctive 08/30/2019 reference range changed. Performed By: #### C MP, TSH reflex FT4, CBCAD, MG, VITD, LIPD #### [facility] [address], [place] [id number] AST [Catalytic activity/Vol] 17 U/L Normal 10-40 [facility] Comment on above: Performed By: #### C MP, TSH reflex FT4, CBCAD, MG, VITD, LIPD #### [facility] [address], [place] [id number] Bilirubin [Mass/Vol] 0.37 mg/dL Normal 0.30-1.20 [facility] Comment on above: Performed By: #### C MP, TSH reflex FT4, CBCAD, MG, VITD, LIPD #### [facility] [address], [place] [id number] BUN/CREA 15 Ratio Normal 6-22 [facility] Comment on above: Performed By: #### C MP, TSH reflex FT4, CBCAD, MG, VITD, LIPD #### [facility] [address], [place] [id number] Calcium [Mass/Vol] 9.5 mg/dL Normal 8.6-10.2 [facility] Comment on above: Performed By: #### C MP, TSH reflex FT4, CBCAD, MG, VITD, LIPD #### [facility] [address], [place] [id number] Chloride [Moles/Vol] 104 mmol/L Normal 98-107 [facility] Comment on above: Performed By: #### C MP, TSH reflex FT4, CBCAD, MG, VITD, LIPD #### [facility] [address] [facility] [place] [place] [id number] CO2 [Moles/Vol] 21 mmol/L Normal 20-31 [facility] Comment on above: Performed By: #### C MP, TSH reflex FT4, CBCAD, MG, VITD, LIPD #### [facility] [address], [place] [id number] Creatinine [Mass/Vol] 0.9 mg/dL Normal 0.7-1.4 [facility] Comment on above: Performed By: #### C MP, TSH reflex FT4, CBCAD, MG, VITD, LIPD #### [facility] [address], [place] [id number] eGFRAA 100 mL/min/1.73m2 Normal >60 [facility] Comment on above: Performed By: #### C MP, TSH reflex FT4, CBCAD, MG, VITD, LIPD #### [facility] [address], [place] [id number] eGFRNAA 82 mL/min/1.73m2 Normal >60 [facility] Comment on above: Performed By: #### C MP, TSH reflex FT4, CBCAD, MG, VITD, LIPD #### [facility] [address], [place] [id number] Globulin (S) [Mass/Vol] 2.6 g/dL Normal 1.9-3.7 [facility] Comment on above: Performed By: #### C MP, TSH reflex FT4, CBCAD, MG, VITD, LIPD #### [facility] [address], [place] [id number] Glucose [Mass/Vol] 92 mg/dL Normal 65-99 [facility] Comment on above: Result Comment: For FASTING Glucose --- ADA reference ranges: Normal 65-99 mg/dl Prediabetes 100-125 Diabetes >/= 126 Performed By: #### C MP, TSH reflex FT4, CBCAD, MG, VITD, LIPD #### [facility] [address], [place] [id number] Potassium [Moles/Vol] 4.8 mmol/L Normal 3.5-5.5 [facility] Comment on above: Performed By: #### C MP, TSH reflex FT4, CBCAD, MG, VITD, LIPD #### [facility] [address], [place] [id number] Protein [Mass/Vol] 6.8 g/dL Normal 6.1-8.1 [facility] [place] [employer] Comment on above: Performed By: #### C MP, TSH reflex FT4, CBCAD, MG, VITD, LIPD #### [facility] [address], [place] [id number] Sodium [Moles/Vol] 139 mmol/L Normal 135-146 [facility] [place] [employer] Comment on above: Performed By: #### C MP, TSH reflex FT4, CBCAD, MG, VITD, LIPD #### [facility] [address], [place] [id number] Urea nitrogen [Mass/Vol] 14 mg/dL Normal 7-25 [facility] [employer] Comment on above: Performed By: #### C MP, TSH reflex FT4, CBCAD, MG, VITD, LIPD #### [facility] [address], [place] [id number] Lipid Panelon 10-16-2021 Cholesterol [Mass/Vol] 158 mg/dL Normal 125-200 [facility] Specialist Comment on above: Result Comment: Low risk < 200mg/dL Borderline risk 201-239 mg/dl High risk > or equal to 240 Performed By: #### C MP, TSH reflex FT4, CBCAD, MG, VITD, LIPD #### [facility] [address], [place] [id number] Cholesterol in HDL [Mass/Vol] 65 mg/dL Normal >40 [facility] [employer] Comment on above: Result Comment: High Cardiovascular Risk HDL <40 mg/dL Low Cardiovascular Risk HDL > or equal to 60 mg/dl Performed By: #### C MP, TSH reflex FT4, CBCAD, MG, VITD, LIPD #### [facility] [address], [place] [id number] Cholesterol in LDL [Mass/Vol] 81 mg/dL Normal [facility] [employer] Comment on above: Result Comment: LDL ATP III CLASSIFICATION LDL less than 100 mg/dl Optimal LDL 100-129 mg/dl Near or above optimal LDL 130-159 Borderline high LDL 160-189 High LDL greater than 189 mg/dl Very High Performed By: #### C MP, TSH reflex FT4, CBCAD, MG, VITD, LIPD #### [facility] [address], [place] [id number] Cholesterol in VLDL [Mass/Vol] 12 mg/dL Normal [facility] [employer] Comment on above: Performed By: #### C MP, TSH reflex FT4, CBCAD, MG, VITD, LIPD #### [facility] [address], [place] [id number] Cholesterol.total/Cho lesterol in HDL [Mass ratio] 2 {ratio} Normal [facility] [employer] Comment on above: Performed By: #### C MP, TSH reflex FT4, CBCAD, MG, VITD, LIPD #### [facility] [address], [place] [id number] Triglyceride [Mass/Vol] 60 mg/dL Normal 30-150 [facility] [employer] Comment on above: Result Comment: TRIG ATPIII CLASSIFICATIONS TRIG less than 150 mg/dl Normal TRIG 150-199 mg/dl Borderline High TRIG 200-500 mg/dl High TRIG greather than 500 mg/dl Very High Performed By: #### C MP, TSH reflex FT4, CBCAD, MG, VITD, LIPD #### [facility] [address], [place] [id number] Magnesiumon 10-16-2021 Magnesium [Mass/Vol] 1.9 mg/dL Normal 1.5-2.3 [facility] Specialist Comment on above: Performed By: #### C MP, TSH reflex FT4, CBCAD, MG, VITD, LIPD #### [facility] [address], [place] [id number] TSH w/ Reflex to Free T4on 0 10-16-2021 TSH 1.370 uIU/mL Normal 0.400-4.50 0 [facility] [employer] Comment on above: Performed By: #### C MP, TSH reflex FT4, CBCAD, MG, VITD, LIPD #### [facility] [address], [place] [id number] Vitamin D 25-OHon 10-16-2021 VIT D 25 OH 28 ng/ml Low >29 [facility] [employer] Comment on above: Result Comment: Karissa min D Status Deficiency <20 ng/mL Insufficiency 20-29 ng/mL Optimal 30-100 ng/mL Possible Toxicity >=150 ng/mL Performed By: #### C MP, TSH reflex FT4, CBCAD, MG, VITD, LIPD #### [facility] [address] [place], [place] [id number] XR CHEST 2 Von 09-11-2021 XR CHEST [...] infiltrates, consider pneumonia Electronically authenticated by: DEBORAH PERLATA Date: 2021-09-11 11:13 Normal [facility] PROF CHEM 8 (BAS METB)on Anion gap [Moles/Vol] 19.0 mmol/L Normal [facility] Comment on above: Performed By: #### B MP #### [facility] [address] [address] [address] Vadim Koehler Calcium [Mass/Vol] 9.0 mg/dL Normal 8.4-10.2 [facility] Comment on above: Performed By: #### B MP #### [facility] [address] [address] [address] Vadim Koehler Chloride [Moles/Vol] 97 mmol/L Critically low 98-107 [facility] Comment on above: Performed By: #### B MP #### [facility] [address] [address] [address] Vadim Koehler CO2 [Moles/Vol] 20.0 mmol/L Critically low 22.0-30.0 [facility] Comment on above: Performed By: #### B MP #### [facility] [address] [address] [address] Vadim Koehler Creatinine [Mass/Vol] 3.03 mg/dL Critically high 0.66-1.25 [facility] Comment on above: Performed By: #### B MP #### [facility] [address] [address] [address] Vadim Koehler EGFR-AF SIERRA LEONEAN 25 mL/min/1.73m2 Critically low >=60 [facility] Comment on above: Performed By: #### B MP #### [facility] [address] [address] [address] Vadim Koehler EGFR-NON AF SIERRA LEONEAN 21 mL/min/1.73m2 Critically low >=60 [facility] Comment on above: Performed By: #### B MP #### [facility] [address] [address] [address] Vadim Koehler Glucose [Mass/Vol] 120 mg/dL Critically high 74-106 [facility] Comment on above: Performed By: #### B MP #### [facility] [address] [address] [address] Vadim Koehler Potassium [Moles/Vol] 4.0 mmol/L Normal 3.4-5.0 [facility] Comment on above: Performed By: #### B MP #### [facility] [address] [address] [address] Vadim Koehler Sodium [Moles/Vol] 132 mmol/L Critically low 137-145 [facility] Comment on above: Performed By: #### B MP #### [facility] [address] [address] [address] Vadim Koehler Urea nitrogen [Mass/Vol] 47.0 mg/dL Critically high 9.0-20.0 [facility] Comment on above: Performed By: #### B MP #### [facility] [address] [address] [address] Vadim Koehler Urea nitrogen/Creatinine [Mass ratio] 15.5 mg/mg Normal [facility] Comment on above: Performed By: #### B MP #### [facility] [id number] Vadim Koehler Vital Signs Date Time Vital Sign Value Performing Clinician Facility 08-07-2023 13:50-0500 Body weight 63.5 kg Cleveland Alberts MD Work Phone: [facility] 08-07-2023 13:50-0500 Diastolic blood pressure 63 mm[Hg] Cleveland Alberts MD Work Phone: [facility] 08-07-2023 13:50-0500 Heart rate 139 /min Cleveland Alberts MD Work Phone: [facility] 08-07-2023 13:50-0500 Systolic blood pressure 94 mm[Hg] Cleveland Ablerts MD Work Phone: [facility] 07-26-2023 15:20-0500 Body temperature 97.7 [degF] MD Rene Cannon Work Phone: [facility] 07-26-2023 15:20-0500 Diastolic blood pressure 69 mm[Hg] MD Rene Cannon Work Phone: [facility] 07-26-2023 15:20-0500 Heart rate 58 /min MD Rene Cannon Work Phone: [facility] 07-26-2023 15:20-0500 Respiratory rate 18 /min MD Rene Cannon Work Phone: [facility] 07-26-2023 15:20-0500 SaO2% (BldA) [Mass fraction] 97 % MD Rene Cannon Work Phone: [facility] 07-26-2023 15:20-0500 Systolic blood pressure 128 mm[Hg] MD Rene Cannon Work Phone: [facility] 07-26-2023 03:59-0500 Body weight 74.9 kg MD Rene Cannon Work Phone: [facility] 07-25-2023 14:39-0500 Body height 175.26 cm MD Rene Cannon Work Phone: [facility] 07-24-2023 18:07-0500 Diastolic blood pressure 56 mm[Hg] MD Rene Cannon Work Phone: [facility] 07-24-2023 18:07-0500 Heart rate 58 /min MD Rene Cannon Work Phone: [facility] 07-24-2023 18:07-0500 Respiratory rate 18 /min MD Rene Cannon Work Phone: [facility] 07-24-2023 18:07-0500 SaO2% (BldA) [Mass fraction] 100 % MD Rene Cannon Work Phone: [facility] 07-24-2023 18:07-0500 Systolic blood pressure 100 mm[Hg] MD Rene Cannon Work Phone: [facility] 07-24-2023 12:15-0500 Body height 175.26 cm MD Rene Cannon Work Phone: [facility] 07-24-2023 12:15-0500 Body temperature 97.6 [degF] MD Rene Cannon Work Phone: [facility] 07-24-2023 12:15-0500 Body weight 72.5 kg MD Rene Cannon Work Phone: [facility] 02-22-2023 11:30-0400 Body height 176.53 cm Chantal Castellanos Other [employer] Other 02-22-2023 11:30-0400 Body mass index (BMI) [Ratio] 25.79 kg/m2 Chantal Castellanos Other [employer] Other 02-22-2023 11:30-0400 Body temperature 98.9 [degF] Chantal Castellanos Other [employer] Other 02-22-2023 11:30-0400 Body weight 80.38 kg Chantal Castellanos Other [employer] Other 02-22-2023 11:30-0400 Respiratory rate 18 /min Chantal Castellanos Other [employer] Other 02-22-2023 11:30-0400 SaO2% (BldA) [Mass fraction] 96 % Chantal Castellanos Other [employer] Other 02-06-2023 11:36-0400 Body height 176.53 cm Rene Cannon Work Phone: [facility] DO Work Phone: 02-06-2023 11:36-0400 Body mass index (BMI) [Ratio] 25.62 kg/m2 Rene Cannon Work Phone: [facility] 250 DO Work Phone: 02-06-2023 11:36-0400 Body surface area Derived from formula 1.97 m2 Rene Cannon Work Phone: [facility] 250 DO Work Phone: 02-06-2023 11:36-0400 Body weight 79.83 kg Rene Cannon Work Phone: [facility] 250 DO Work Phone: 02-06-2023 11:36-0400 Diastolic blood pressure 78 mm[Hg] Rene Cannon Work Phone: [facility] [place] 250 DO Work Phone: 02-06-2023 11:36-0400 Heart rate 66 /min Rene Cannon Work Phone: [facility] [place] 250 DO Work Phone: 02-06-2023 11:36-0400 Systolic blood pressure 136 mm[Hg] Rene Cannon Work Phone: [facility] 250 DO Work Phone: 01-17-2023 13:05-0400 Diastolic blood pressure 72 mm[Hg] MD Rene Cannon Work Phone: [facility] 01-17-2023 13:05-0400 Heart rate 60 /min MD Rene Cannon Work Phone: [facility] 01-17-2023 13:05-0400 Respiratory rate 16 /min MD Rene Cannon Work Phone: [facility] 01-17-2023 13:05-0400 SaO2% (BldA) [Mass fraction] 97 % MD Rene Cannon Work Phone: [facility] 01-17-2023 13:05-0400 Systolic blood pressure 123 mm[Hg] MD Rene Cannon Work Phone: [facility] 01-17-2023 07:26-0400 Body height 177.8 cm MD Rene Cannon Work Phone: [facility] 01-17-2023 07:26-0400 Body temperature 98.1 [degF] MD Rene Cannon Work Phone: [facility] 01-17-2023 07:26-0400 Body weight 82 kg MD Rene Cannon Work Phone: [facility] 01-09-2023 09:10-0400 Diastolic blood pressure 92 mm[Hg] Rene Cannon Work Phone: [facility] 250 DO Work Phone: 01-09-2023 09:10-0400 Systolic blood pressure 160 mm[Hg] Rene Cannon Work Phone: [facility] [place] 250 DO Work Phone: 01-09-2023 09:09-0400 Body height 176.53 cm Rene Cannon Work Phone: [facility] [place] 250 DO Work Phone: 01-09-2023 09:09-0400 Body mass index (BMI) [Ratio] 26.49 kg/m2 Rene Cannon Work Phone: [facility] 250 DO Work Phone: 01-09-2023 09:09-0400 Body surface area Derived from formula 1.99 m2 Destineemickey Cannon Work Phone: [facility] 250 DO Work Phone: 01-09-2023 09:09-0400 Body weight 82.56 kg Rene Cannon Work Phone: [facility] [place] 250 DO Work Phone: 01-09-2023 09:09-0400 Diastolic blood pressure 90 mm[Hg] Rene Cannon Work Phone: [facility] 250 DO Work Phone: 01-09-2023 09:09-0400 Heart rate 70 /min Rene Cannon Work Phone: [facility] [place] 250 DO Work Phone: 01-09-2023 09:09-0400 Systolic blood pressure 152 mm[Hg] Destineemickey Cannon Work Phone: [facility] 250 DO Work Phone: 11-21-2021 14:30-0400 Body height 176.53 cm Deborah Magallanes Other [employer] Other 11-21-2021 14:30-0400 Body mass index (BMI) [Ratio] 27.36 kg/m2 Deborah Magallanes Other [employer] Other 11-21-2021 14:30-0400 Body weight 85.28 kg Deborah Magallanes Other [employer] Other 11-21-2021 14:30-0400 Diastolic blood pressure 79 mm[Hg] Deborah Magallanes Other [employer] Other 11-21-2021 14:30-0400 Systolic blood pressure 136 mm[Hg] Deborah Magallanes Other [employer] Other Encounters Encounter Date Encounter Type Care Provider Facility Start: 08-28-2023 End: 09-05-2023 Evaluation and management of [facility] Start: 08-28-2023 End: 08-28-[address] [facility] Facility:[facility] Start: 08-15-2023 End: 08-15-2023 ambulatory Imad Asaad Other [employer] Other Start: 08-15-2023 Telephone encounter Imad Asaad [facility] Enamel Shader Start: 08-13-2023 Telephone encounter Cleveland chang MD Work Phone: General Surgery Comment on above: FMLA Paperwork Start: 08-08-2023 Preprocedural examination done Cleveland Alberts MD Work Phone: [facility] Work Phone: Start: 08-07-2023 End: 08-17-2023 Evaluation and management of inpatient BOLIVAR Misa DEAL Facility:[facility] Start: 08-07-2023 End: 08-07-2023 ambulatory [facility] [facility] Start: 08-07-2023 End: 08-07-2023 Patient encounter procedure Cleveland Alberts MD Work Phone: General Surgery Comment on above: Gastric outlet obstr uction (Primary Dx) Start: 08-05-2023 Orders Only Jessie Zamora RN Gener al Surgery Comment on above: Appointment Start: 07-30-2023 End: 07-30-2023 ambulatory RENE CANNON Not Available Start: 07-29-2023 Telephone encounter Madair Violetta chang MD Work Phone: General Surgery Comment on above: Appointment Start: 07-24-2023 End: 07-26-2023 Evaluation and management of inpatient Rene Cannon Facility:[facility] Start: 07-24-2023 End: 07-26-2023 Evaluation and management of inpatient MD Rene Cannon Work Phone: [facility] Work Phone: Start: 07-24-2023 End: 07-24-2023 ambulatory RENE CANNON Not Available Start: 07-10-2023 End: 07-10-2023 ambulatory RENE CANNON Not Available Start: 02-22-2023 End: 02-22-2023 ambulatory Chantalniko Casetllanos Other [facility] [employer] Other Start: 02-22-2023 Office outpatient vi sit 15 minutes Chantal Castellanos [facility] Start: 02-06-2023 Office outpatient vi sit 15 minutes Rene Cannon Work Phone: [facility] 250 DO Work Phone: Start: 01-17-2023 ambulatory Arnel Madsen Facilit [id number] Start: 01-17-2023 End: 01-17-2023 ambulatory Joselito Madsen Facility:[facility] Start: 01-17-2023 End: 01-17-2023 Admission to same day surgery center MD Rene Cannon Work Phone: [facility]Field Adjuster Work Phone: Start: 01-17-2023 End: 01-17-2023 ambulatory MD Rene Cannon Work Phone: [facility] Work Phone: Start: 01-15-2023 End: 01-15-2023 ambulatory Joselito Madsen Facility:[facility] Start: 01-15-2023 End: 01-15-2023 Patient encounter procedure MD Rene Cannon Work Phone: [facility] Work Phone: Start: 01-09-2023 ambulatory Arnel Cale Facilit [id number] Start: 12-19-2022 ambulatory Arnel Cale Facilit y:[facility] Start: 07-04-2022 ambulatory INOCENCIO ERICKSON [facility] Start: 01-11-2022 End: 01-11-2022 ambulatory Deborah Magallanes Other [employer] Other Start: 01-11-2022 Telephone encounter Deborah Magallanes [facility] Start: 12-19-2021 End: 12-19-2021 ambulatory Deborah Magallanes Other [employer] Other Start: 12-19-2021 Telephone encounter Deborah Magallanes [facility] Start: 11-21-2021 End: 11-21-2021 ambulatory Deborah Magallanes Other [employer] Other Start: 11-21-2021 Office outpatient ne w 30 minutes Deborah Magallanes [facility] Start: 11-07-2021 End: 11-10-2021 ambulatory DOUGLAS GUTIERREZ [facility] Start: 11-07-2021 End: 11-09-2021 Subsequent hospital visit by physician [facility] Ekg [facility] EKG Comment on above: Chest pain, unspecif ied type; Syncope, unspecified syncope type Arrived [facility]ruit Start: 10-31-2021 End: 11-01-2021 ambulatory DOUGLAS GUTIERREZ Facility:[facility] Start: 09-12-2021 End: 09-13-[address] RENE CANNON Facility:[facility] Start: 09-11-2021 End: 09-12-[address] RENE CANNON Facility:[facility] Start: 09-07-2021 End: 01-14-[address] RENE CANNON Facility:[facility] Procedures Date Procedure Procedure Detail Performing Clinician Start: 08-17-2023 Echocardiography BOLIVAR DEAL Start: 08-07-2023 Antibody screen BOLIVAR DEAL Comment on above: Order Comment: Specimen Type: BLOOD SPEC IMENOrdering Facility: [facility] Address: [address] [place] [address] Performed By: #### T SCR ####GEOVANNA BLOOD BANKCLIA [id number] [address] Start: 07-25-2023 Esophagogastroduodenoscopy MD Rene Darnell eyer Work Phone: Start: 07-24-2023 CT of abdomen [...] Rene Cannon Work Phone: Start: 03-17-2017 Colonoscopy Mw Ekg Arthroscopy of knee Rene Cannon Work Phone: Cardiac catheterization Olga Cannon Work Phone: Tonsillectomy Rene Panchal er Work Phone: Plan of Treatment Date Care Activity Detail Author Start: 02-16-2033 Urine microalbumin profile DTa P,Tdap,Td Vaccine (2 - Td or Tdap) [facility] Start: 03-17-2027 Screening for malign ant neoplasm of colon [facility] Start: 10-16-2026 Lipid panel Lipid screen [facility] Start: 08-14-2026 Diabetes Screening Diabetes Screenin g [facility] Start: 08-07-2026 Diabetes Screening Diabetes Screenin g [facility] Start: 08-07-2024 BP Controlled (<130/80) BP Con trolled (<130/80) [facility] Start: 07-26-2023 [facility] Start: 07-25-2023 Comprehensive metabo lic 2000 panel - Serum or Plasma [facility] Start: 07-25-2023 [facility] Start: 07-24-2023 Blood chemistry [facility] Start: 07-24-2023 Referral to Welt Stitch Cleaner [facility] Start: 07-24-2023 End: 07-24-2023 [facility] Start: 07-24-2023 Referral to speech a nd language therapy service [facility] Start: 07-24-2023 Referral to baggage agent [facility] Start: 07-24-2023 Hospital admission [facility] Start: 07-24-2023 Referral to makeup artist [facility] Start: 04-25-2023 Influenza vaccination Influenz a Vaccine (#1) [facility] Start: 01-17-2023 End: 01-17-2023 [facility] Start: 10-16-2022 Creatinine measurement Creatinine mo nitoring [facility] Start: 10-16-2022 Potassium monitoring Potassium monit [facility] Start: 08-25-2022 Advance Directive Discussion A dvance Directive Discussion [facility] Start: 08-25-2022 Depression Assessment Depression Ass essment [facility] Start: 12-04-2021 End: 12-04-2021 Patient encounter procedure 12/04/2021 Office Visit Cardiology Douglas Gutierrez MD [address] [place] [address] [facility] 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 Start: 04-25-2021 Influenza vaccination Flu vaccine (# 1) [facility] Start: 2020 Pneumococcal 65+ yea rs Vaccine (1 of 1 - PPSV23) Pneumococcal 65+ years Vaccine (1 of 1 - PPSV23) [facility] Start: 2020 Pneumococcal Vaccine : 65+ (1 - PCV) Pneumococcal Vaccine: 65+ (1 - PCV) [facility] Start: 2020 Pneumococcal Vaccine : 65+ (1 of 1 - PCV) Pneumococcal Vaccine: 65+ (1 of 1 - PCV) [facility] Start: 2015 RSV Vaccine (1 - 1-d ose 60+ series) RSV Vaccine (1 - 1-dose 60+ series) [facility] Start: 2010 Prostate specific an tigen measurement Prostate Cancer Screening Discussion [facility] Start: 2005 Shingles Vaccine (1 of 2) Arriaga gles Vaccine (1 of 2) [facility] Start: 2005 Shingrix Vaccine (1 of 2) Arriaga grix Vaccine (1 of 2) [facility] Start: 2000 Diabetes Screening Diabetes Screenin g [facility] Start: 2000 Screening for malign ant neoplasm of colon [facility] Start: 1990 Lipid panel Lipid Screening [facility] Start: 1974 DTaP/Tdap/Td vaccine (1 - Tdap) DTaP/Tdap/Td vaccine (1 - Tdap) [facility] Start: 1974 Urine microalbumin profile DTa P,Tdap,Td Vaccine (1 - Tdap) [facility] Start: 1973 Annual PCP Team Refinisher kit Disease Visit Annual PCP Team Chronic Disease Visit [facility] Start: 1973 Hepatitis C screening Hepatitis C [facility] Start: 1967 Depression Screen Depression Screen [facility] Start: 1960 COVID-19 Vaccine (1) COVID-19 Vaccin e (1) [facility] Start: 01-15-1956 Covid-19 Vaccine (#1) Covid-19 Vacci ne (#1) [facility] Start: 1955 Hepatitis C screening Hepatitis C [facility] Anion gap measurement [facility] Blood chemistry [facility] End: 11-07-2021 Cardiac event monitor Cardiac event monitor Cardiac Services Routine Chest pain, unspecified type Syncope, unspecified syncope type 1 Occurrences starting 11/07/2021 until 11/07/2021 [facility] Work Phone: Comment on above: 1 Occurrences starti ng 11/07/2021 until 11/07/2021 Dup-scan xtr veins c omplete bilateral study VASCULAR REPORT Imaging Ordered: 11/08/2021 [facility] Comment on above: Ordered: 11/08/2021 Patient referral Luli mendosa [facility] Work Phone: End: 11-07-2021 Stress test, myoview Stress test, myoview Cardiac Services Routine Chest pain, unspecified type Syncope, unspecified syncope type 1 Occurrences starting 11/07/2021 until 11/07/2021 [facility] Work Phone: Comment on above: 1 Occurrences starti ng 11/07/2021 until 11/07/2021 [facility] Payers Date Payer Category Payer Self-pay [id number] 2020 Medicare [id number] 2017 Unknown 1959 Unknown [id number] 1955 Unknown [id number] 2.16.84 0.1.298862.3.579.2.593 1955 Unknown [id number] 2.16.84 0.1.658914.3.579.2.593 1955 Unknown [id number] 2.16.84 0.1.916880.3.579.2.593 1955 Unknown [id number] 2.16.84 0.1.030900.3.579.2.593 1955 Unknown [id number] 2.16.8 40.1.221069.3.579.2.174 1955 Unknown [id number] 2.16.8 40.1.046807.3.579.2.174 1955 Unknown [id number] 2.16.8 40.1.831185.3.579.2.174 1955 Unknown [id number] 2.16.8 40.1.499815.3.579.2.174 1955 Unknown [id number] 2.16.8 40.1.561306.3.579.2.174 1955 Unknown [id number] 2.16.8 40.1.062059.3.579.2.174 1955 Unknown [id number] 2.16. 840.1.389065.3.579.2.356 1955 Unknown [id number] 2.16. 840.1.127102.3.579.2.356 1955 Unknown [id number] 2.16. 840.1.586309.3.579.2.356 1955 Unknown [id number] 2.16.840 .1.260568.3.579.2.1259 1955 Unknown [id number] 2.16.840 .1.702397.3.579.2.1259 1955 Unknown [id number] 2.16.840 .1.743474.3.579.2.1259 Unknown [id number] 2.16.8 40.1.381983.3.579.2.531 Unknown [id number] 2.16.8 40.1.021260.3.579.2.531 Unknown [id number] 2.16.8 40.1.392337.3.579.2.531 Social History Date Type Detail Facility Start: 10-23-2021 End: 08-07-2023 Tobacco smoking status [facility] Never smoked tobacco [facility] Start: 10-23-2021 End: 08-07-2023 Tobacco use and exposure Smokeless tobacco non-user [facility] Phone: Start: 10-24-2021 Alcohol intake Current drinke r of alcohol (finding) [facility] Phone: Start: 10-24-2021 End: 08-07-2023 Alcohol intake [facility] Phone: Comment on above: couple beers at [facility]; Start: 1955 Sex Assigned At Not on file [facility] Phone: Start: 08-07-2023 Sex Assigned At [employer] Other Start: 1955 Sex Assigned At Male [facility] Tobacco smoking status NHIS Tobacco smoking consumption unknown [facility] Start: 08-07-2023 Alcohol intake Ex-drinker (finding) [facility] National Score (1-100), lower number is lower risk 63 [facility] Medical Equipment Procedure Code Equipment Code Equipment Origin al Text Equipment Identifier Dates [id number] Percutane Endoscopic Gastrostomy Set [id number] Start: 08-13-2023 Goals Date Patient Goal Desired Activity /State Functional Status Date Assessment Result Facility 07-26-2023 Functional status Patient at Baseline [facility] Work Phone: 07-24-2023 Functional status Patient at Baseline [facility] Work Phone: Mental Status Date Assessment Result Facility 07-26-2023 Cognitive function Cognitive Sta tus Patient at Baseline [facility] Work Phone: 07-24-2023 Cognitive function Cognitive Sta tus Patient at Baseline [facility] Work Phone: Clinical Notes 11-07-2021 to 09-05-2023 Telephone Encounter - Jessie Zamora RN - 08/14/2023 9:12 AM ESTTelephone Encounter - Jessie Zamora RN - 08/13/2023 10:24 AM Cleveland Chinchilla MD - 08/07/2023 2:25 PM EST Note Date & Type Note Facility 09-05-2023 Note [facility] 09-04-2023 Note [facility] 09-03-2023 Note [facility] 09-02-2023 Note HNO ID: [id number] Author: MARYAM MEJIA, LUCILLE Service: Care Management Author Type: Registered Nurse Type: Care Mgt Progress Note Filed: 09/02/2023 13:34 Note Text: cont. with TPN, optimize pt for OR planned Friday [facility] 09-02-2023 Note [facility] 09-01-2023 Note [facility] 08-31-2023 Note [facility] 08-30-2023 Note [facility] 08-29-2023 Note HNO ID: [id number] Author: LAYNE CARR RN Service: ? Author Type: Registered Nurse Type: Nursing Progress Note Filed: 08/29/2023 16:30 Note Text: 1630 paged SROC, is it ok to use picc if so we need an order. [facility] 08-29-2023 Note [facility] 08-29-2023 Note [facility] 08-28-2023 Note HNO ID: [id number] Author: CLEVELAND ALBERTS MD Service: ? Author Type: Physician Type: Progress Notes Filed: 08/28/2023 17:08 Note Text: Established Patient Visit REASON FOR VISIT Follow up after recent hospitalization History of Present Illness: Aisha Juilen is a 68 year old male who [...] Neuro: Gait deangelo (more content not included)... [facility] 08-26-2023 Note HNO ID: [id number] Author: Andreas Ford, DO Service: ? Author Type: Fellow Type: Progress Notes Filed: 08/26/2023 12:36 PM Note Text: [facility] Multidisciplinary Bnhbag-Dlhfncgws-Axqblol AND Upper GI Case Conference -- Consensus [...] able Andreas Ford DO [facility] Surgical Fellow [facility] 08-17-2023 Note [facility] 08-17-2023 Note HNO ID: [id number] Author: Margot Gonzalez RN Service: ? Author Type: Registered Nurse Type: Nursing Progress Note Filed: 08/17/2023 3:34 AM Note Text: 0030 New TF bag hung, TF advanced to 50 ml/hr no c/o gastric upset or nausea. [facility] 08-16-2023 Note [facility] 08-16-2023 Note [facility] 08-15-2023 Note [facility] 08-15-2023 Note [facility] 08-14-2023 Note [facility] 08-14-2023 Note [facility] 08-14-2023 Miscellaneous Notes Kindra from [facility] [...] [facility] - patient employer to get FMLA paperwork for him. Left a VM with Kindra. Gave her cell number to call back and/or fax number to fax paperwork. documented in this encounter [facility] 08-13-2023 Note [facility] 08-13-2023 Note [facility] 08-12-2023 Note [facility] 08-11-2023 Note [facility] 08-10-2023 Note [facility] 08-09-2023 Note [facility] 08-08-2023 Note [facility] 08-07-2023 History and physical note New Patient [...] and symmetric. Sensation grossly intact. 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 Cannon in [facility]. documented in this encounter [facility] 07-29-2023 Miscellaneous Notes New patient referral from Dr. 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 Contacted the office to resend records. Please advise on scheduling documented in this encounter [facility] 07-26-2023 Progress note Note Date/Time July 26, 2023 11:49am [facility] ENTER [address] [place] [address] Nephrology Progress Note Signed Patient: Aisha Julien MR#: [id number] : 1955 Acct:[id number] Age/Sex: 68 / M Adm Date: 3 Loc: Room: [address] [place] [address] Type: ADM IN Attending Dr: Gela Eller [...] (Finasteride 5 Mg Tablet) [facility] Stop: 07/24/24 08:59 Last Admin: 07/26/23 08:40 Dose: 5 mg Hydralazine HCl (Hydralazine 20 Mg/Ml Vial) 10 mg IV-PUSH Q4H PRN PRN Reason: if SBP > 185 Stop: 07/23/24 16:29 Hydromorphone HCl (Hydromorphone 1 Mg/Ml Syringe) 0.25 mg IV-PUSH Q4H PRN PRN Reason: pain Lactated Ringer's (Lactated Ringers) 1,000 mls @ 75 mls/hr IV .[id number] COUNT INCLUDES THE [facility] Stop: 07/24/24 13:14 Last Admin: 07/26/23 03:54 Dose: 75 mls/hr Sodium Chloride (0.9% Sodium Chloride 1,000 Ml) 1,000 mls @ 20 mls/hr IV .Q24H COUNT INCLUDES THE [facility] Stop: 07/24/24 13:59 Last Admin: 07/25/23 13:51 Dose: 20 mls/hr Pantoprazole Sodium (Pantoprazole 40 Mg Vial) 40 mg IV-PUSH BID COUNT INCLUDES THE [facility] Stop: 07/23/24 20:59 Last Admin: 07/26/23 08:40 [...] 0.4 Mg Cap.Er.24h) 0.4 mg PO QAM COUNT INCLUDES THE [facility] Stop: 07/24/24 08:59 Last Admin: 07/26/23 [...] signed by Jose A Calzada MD> 07/26/23 1149 [facility] Work Phone: 1(765) 916-711212-01-2023 Progress note Author Gela Eller [facility] July 25, 2023 12:59pm Note Date/Time July 25, 2023 1 2:59pm [facility] EN[facility] [address] [place] [address] Hospitalist Progress Note Signed Patient: Aisha Julien MR#: [id number] : 1955 Acct:[id number] Age/Sex: 68 / M Adm Date: 3 Loc: Room: [address] [place] [address] Type: ADM IN Attending Dr: Gela Eller [...] 07/24/23 16:30 Docusate 100 Mg Capsule PO 11/29/24 16:29 BID PRN Constipation Finasteride 5 mg [...] signed by Gela Eller MD> 07/25/23 1259 [facility] Work Phone: 1(853) 292-754912-01-2023 History and physical note Author Gela Eller [facility] July 25, 2023 12:57pm Note Date/Time July 24, 2023 4:18pm [facility] ENTER [address] [place] [address] Hospitalist H&P Signed Patient: Aisha Julien MR#: [id number] : 1955 Acct:[id number] Age/Sex: 68 / M Adm Date: 3 Loc: Room: [address] [place] [address] Type: ADM IN Attending Dr: Gela Eller [...] any coronary artery disease. Ventriculogram showed ejection [id number]% Admission EKG showed normal sinus rhythm without [...] mass, portal vein/SMV thrombosis cannot be excluded. [facility] Medical History (Updated 07/25/23 @ 12:42 [...] tablet,extended release 24 hr 50 mg PO QA 11/29/21 [History Confirmed 07/24/23] tamsulosin 0.4 mg capsule 0.4 mg PO QA 11/29/21 [History Confirmed 07/24/23] finasteride 5 mg tablet 5 mg PO [facility] 01/15/23 [History Confirmed 07/24/23] potassium gluconate 595 mg (99 mg) tablet 99 mg PO [facility] 01/15/23 [History Confirmed 07/24/23] diltiazem HCl [...] % (Auto) 12.6 % (.) 07/24/23 12:28 Butler % (Auto) 10.3 % (.) 07/24/23 12:28 Eos % (Auto) 1.0 % (.) 07/24/23 12:28 Baso % (Auto) 0.5 % (.) 07/24/23 12:28 Nucleat RBC Rel Count 0.2 /100 WBC (0-0.5) 07/24/23 12:28 Neut # (Auto) 5.5 x10E3/uL (1.8-7.7) 07/24/23 12:28 Lymph # (Auto) 0.9 x10E3/uL (1.00-4.8) L 07/24/23 12:28 Butler # (Auto) 0.8 x10E3/uL (0.0-0.8) 07/24/23 12:28 Eos # (Auto) 0.1 x10E3/uL (0.0-0.45) 07/24/23 12:28 Baso # (Auto) 0.0 x10E3/uL (0.0-0.2) 07/24/23 12: Monocyte Dist Width 21.73 % (0.00-20.00) H [...] pH 5.5 (5.0-9.0) 07/24/23 13:54 Ur Specific [place] 1.015 (1.001-1.030) 07/24/23 13:54 Urine Protein 30 [...] signed by Gela Eller MD> 07/25/23 1257 [facility] Work Phone: 1(359) 864-124112-01-2023 Consult note Author Jose A Calzada [facility] July 25, 2023 12:45pm Note Date/Time July 25, 2023 1 2:45pm [facility] ENTER [address] [place] [address] Nephrology Consult Note Signed Patient: Aisha Julien MR#: [id number] : 1955 Acct:[id number] Age/Sex: 68 / M Adm Date: 3 Loc: 3T Room: [address] [place] [address] Type: ADM IN Attending Dr: Gela Eller [...] 12 system review is negative this morning [facility] Medical History (Updated 07/25/23 @ 12:42 [...] tablet,extended release 24 hr 50 mg PO [facility] 11/29/21 [History Confirmed 07/24/23] tamsulosin 0.4 mg capsule 0.4 mg PO [facility] 11/29/21 [History Confirmed 07/24/23] finasteride 5 mg tablet 5 mg PO [facility] 01/15/23 [History Confirmed 07/24/23] potassium gluconate 595 mg (99 mg) tablet 99 mg PO [facility] 01/15/23 [History Confirmed 07/24/23] diltiazem HCl [...] (Finasteride 5 Mg Tablet) 5 mg PO [facility] Stop: 07/24/24 08:59 Hydralazine HCl (Hydralazine 20 Mg/Ml Vial) 10 mg IV-PUSH Q4H PRN PRN Reason: if SBP > 185 Stop: 07/23/24 16:29 Hydromorphone HCl (Hydromorphone 1 Mg/Ml Syringe) 0.25 mg IV-PUSH Q4H PRN PRN Reason: pain Potassium Chloride/Sodium Chloride (0.9% Nacl-40 Meq Kcl) 1,000 mls @ 150 mls/hr IV .Q6H40M COUNT INCLUDES THE [facility] Stop: 07/23/24 13:44 Last Admin: 07/25/23 11:24 Dose: 150 mls/hr Pantoprazole Sodium (Pantoprazole 40 Mg Vial) 40 mg IV-PUSH BID COUNT INCLUDES THE [facility] Stop: 07/23/24 20:59 Last Admin: 07/25/23 07:59 [...] mg PO QAM NOMI Stop: 07/24/24 08:59 Exam Physical Exam Vital [...] Appearance Clear Urine pH 5.5 Ur Specific [place] 1.015 Urine Protein 30 H Urine Glucose (UA) Normal Urine Ketones Trace H Urine Occult Blood Negative Urine Nitrite Negative Ur Leukocyte Esterase Negative Urine RBC 5-9 H Urine WBC 0-1 Urine Bacteria None seen 07/25/23 05:46 BUN 44 H Creatinine 2.86 H D Albumin 3.4 L Urine Color Urine Appearance Urine pH Ur Specific [place] Urine Protein Urine Glucose (UA) Urine Ketones [...] Santa Jr., D.O.07/24/2023 2:43 PM Dictation Location: [place] [address] Any impression(s) listed above is documentation that [...] by Jose A Calzada MD> 07/25/23 1245 [facility] Work Phone: 1(371) 378-515712-01-2023 [facility] Consult note Author Nohemy Linder [facility] July 24, 2023 4:38pm Note Date/Time July 24, 2023 4:35pm [facility] EN[facility] [address] [place] [address] Gastroenterology Consult Note Signed Patient: Aisha Julien MR#: [id number] : 1955 Acct:[id number] Age/Sex: 68 / M Adm Date: 3 Loc: Room: [address] [place] [address] Type: ADM IN Attending Dr: Gela Eller [...] negative unless noted below or in HPI [facility] Medical History (Updated 07/24/23 @ 16:37 [...] capsule,extended release 24 hr 240 mg PO QA 11/29/21 [History Confirmed 07/24/23] losartan 100 mg tablet 100 mg PO QA 11/29/21 [History Confirmed 07/24/23] metoprolol succinate 100 mg tablet,extended release 24 hr 100 mg PO QA 11/29/21[History Confirmed 07/24/23] tamsulosin 0.4 mg capsule 0.4 mg PO QAM 11/29/21 [History Confirmed 07/24/23] finasteride 5 mg tablet 5 mg PO [facility] 01/15/23 [History Confirmed 07/24/23] potassium gluconate 595 mg (99 mg) tablet 99 mg PO [facility] 01/15/23 [History Confirmed 07/24/23] Exam Physical [...] % (Auto) 75.6 Lymph % (Auto) 12.6 Butler % (Auto) 10.3 Eos % (Auto) 1.0 Baso % (Auto) 0.5 Nucleat RBC Rel Count 0.2 Neut # (Auto) 5.5 Lymph # (Auto) 0.9 L Butler # (Auto) 0.8 Eos # (Auto) 0.1 [...] Color Urine Appearance Urine pH Ur Specific [place] Urine Protein Urine Glucose (UA) Urine Ketones Urine Occult Blood Urine Nitrite Urine Bilirubin Urine Urobilinogen Ur Leukocyte Esterase Urine RBC Urine WBC Ur Squamous Epith Cells Urine Bacteria Hyaline Casts 07/24/23 07/24/23 07/24/23 12:28 12:28 13:54 Corrected WBC Uncorrected WBC Count RBC Hgb Hct MCV MCH MCHC RDW Plt Count MPV Neut % (Auto) Lymph % (Auto) Butler % (Auto) Eos % (Auto) Baso % (Auto) Nucleat RBC Rel Count Neut # (Auto) Lymph # (Auto) Butler # (Auto) Eos # (Auto) Baso # [...] Appearance Clear Urine pH 5.5 Ur Specific [place] 1.015 Urine Protein 30 H Urine Glucose [...] By: <Electronically signed by Nohemy Linder MD> 07/24/238 [facility] Work Phone: 1(596) 187-476207-01-2023 Evaluation note* Encounter Date Diagnosis Assessment Notes Treatment Notes Treatment Clinical Notes Feb, Visit for suture removal (ICD-10 - Z48.02) sutures removed successfully--see procedural note. wound healed up well. no questions or concerns. follow up with PCP prn. Feb, Laceration of nose, initial encounter (ICD-10 - S01.21XA) lac repair done in [facility] Other 05-26-2023 Discharge summary Author Joselito Madsen [facility] January 17, 2023 10:24am Note Date/Time January 17, 2023 10:22 am [facility] EN[facility] [address] [place] [address] Discharge Summary Signed Patient: Aisha Julien MR#: [id number] : 1955 Acct:[id number] Age/Sex: 67 / M Adm Date: 3 Loc: Room: Attending Dr: Joselito Madsen DO Copies to: MD Joselito Velásquez DO~ Providers Date of Discharge: 01/17/23 Discharging Provider: Joselito Madsen Primary Care Provider: eRne Cannon Discharge Diagnosis Final Diagnosis Final Discharge [...] Low-Cholesterol Additional Instructions: DISCHARGE INSTRUCTIONS FOR CARDIAC HEAD OF PARTNER DEVELOPMENT PHONE NUMBER OF YOUR PHYSICIAN: [phone] PROCEDURE: Heart Cath The following instructions have [...] cold, numb, blue or white, call the business development executive immediately. 4. ACTIVITY: You are advised to [...] bottle, follow the instructions on the bottle. [facility] is not responsible for incorrect prescription information [...] <Electronically signed by Joselito Madsen DO> 01/17/[address] [place] [address] Work Phone: 1(217) 344-492005-26-2023 Procedure [facility]03-30-2022 Evaluation note* Encounter Date Diagnosis Assessment Notes Treatment Notes Treatment Clinical Notes Oct, Abdominal pain (ICD-10 - R10.9) OBTAIN RECORDS FROM [facility] OBTAIN COLONOSCOPY AND CT SCAN[facility] Oct, Gastritis without bleeding, unspecified chronicity, unspecified gastritis type (ICD-10 - K29.70) Oct, GERD (gastroesophageal reflux disease) (ICD-10 - K21.9) STOP FAMOTIDINE [employer] Other 03-16-2022 History of Present illness Narrative* Caity Hamilton RCP - 11/07/2021 12:30 PM EDT The patient was educated on the use of an event monitor. The patient's comprehension was high. The patient was able to verbalize recall. The patient was instructed on how and when to return the monitor. [facility] Work Phone: 1(783) 985-275903-16-2022 Note [facility] Vascular Carotid Procedure Patient Name WILY LEONARD Date of Study 11/07/2021 L Date of 1955 Gender Male Age 66 year(s) Race Room Number Corporate ID [id number] # Patient Acct [id number] # MR # [id number] Active Directory Administrator Jocelyn Mcghee, RT Interpreting Estephania Pichardo Physician [...] the vertebrals. Signature Electronically signed by PERRY Magaña)Lindsey)STAN)[facility])(Active Directory Administrator) on 11/07/2021 11:33 AM Findings: Right Impression: [...] unspecified syncope type documented in this encounter [facility] Phone: evaluation note* Diagnosis Bruit Other symptoms involving cardiovascular system documented in this encounter [facility] Phone: evaluation noteNo InformationNortP[facility] Other Evaluation noteNo assessment information available [facility] Work Phone: Evaluation note* Diagnosis Onset Date Resolution Status Acute renal failure acute Epigastric pain acute Hypokalemia acute Hypotension acute Small bowel mass acute Unintentional weight loss ac [facility] Work Phone: Evaluation note* Diagnosis Onset Date Resolution Status Acute renal failure acute Duodenal mass acute Epigastric pain acute Hypokalemia acute Hypotension acute Small bowel mass acute Unintentional weight loss [facility] Work Phone: Evaluation note* Diagnosis Gastric outlet obstruction- Primary Acquired hypertrophic pyloric stenosis documented [facility] - Reported* Type Description Date Medical History HTN Medical History GERD Surgical History knee arthroscopy BILATEAL-3 RAMSES ES EACH Credii [facility] Other Histlxj general Narrative - Reported* Type Description Date Medical History HTN Medical History GERD Surgical History knee arthroscopy BILATEAL-3 RAMSES ES EACH Hospitalization History DEHYDRATION [facility] Other Hospital Discharge instructions Additional Instructions DISCHARGE INSTRUCTIONS FOR CARDIAC HEAD OF PARTNER DEVELOPMENT PHONE NUMBER OF YOUR PHYSICIAN: [phone] PROCEDURE: Heart Cath The following instructions have [...] cold, numb, blue or white, call the business development executive immediately. 4. ACTIVITY: You are advised to [...] bottle, follow the instructions on the bottle. [facility] is not responsible for incorrect prescription information provided by the patient during their visit. Do not stop your medications without consulting your health care provider. Please take the list with you to your next doctor's appointment.[facility] Work Phone: Hospital Discharge instructions Additional Instructions You will need to follow-up with [facility] physician Dr. Bety Amin for further evaluation of your duodenal mass. Dr. Tadeo's office will arrange appointment and we will give you a [facility] Work Phone: Progress note Author Gela Eller [facility] July 26, 2023 2:50pm Note Date/Time July 26, 2023 2 :50pm [facility] ENTER [address] [place] [address] Hospitalist Progress Note Signed Patient: Aisha Julien MR#: [id number] : 1955 Acct:[id number] Age/Sex: 68 / M Adm Date: 3 Loc: Room: [address] [place] [address] Type: ADM IN Attending Dr: Gela Eller [...] Lactated Ringers IV 07/24/24 13:14 75 mls/hr .[id number] NOMI Administration Sodium Chloride 1,000 mls @ [...] Flush Tamsulosin HCl 0.4 mg 07/25/23 09:00 12/02/23 08:40 Tamsulosin 0.4 Mg Cap.Er.24h PO 07/24/24 [...] external mass effect/compression I did discuss with baggage agent, his office will arrange follow-up with gastroenterology [...] signed by Gela Eller MD> 07/26/23 1450 [facility] Work Phone: Summary Purpose Family History [...] Procedures Cardiac event monitor Douglas Gutierrez MD [address] [place] [id number] Referral ID Status Reason Start Date Expiration Date Visits Re quested Visits Authorized [id number] Closed 10/25/2021 10/25/2022 1 1 Specialty Diagnoses / Procedures Referred By Contac t Referred To Contact Cardiology Diagnoses Chest pain, unspecified type Syncope, unspecified syncope type R07.9 (ICD-10-CM) - Chest pain, unspecified type Procedures Stress test, myoview CHG MYOCARDIAL SPECT MULTIPLE STUDIES 32432 - CHG MYOCARDIAL SPECT MULTIPLE STUDIES Douglas Gutierrez MD [address] [place] [address] [place] [address] Referral ID Status Reason Start Date Expiration Date Visits Re quested Visits Authorized [id number] Closed 10/25/2021 10/25/2022 4 4 Specialty Diagnoses / Procedures Referred By Contac t Referred To Contact Vascular Lab Diagnoses Bruit R09.89 (ICD-10-CM) - Bruit Procedures VL DUP CAROTID BILATERAL WV DUPLEX SCAN EXTRACRANIAL,BILAT 59995 - WV DUPLEX SCAN EXTRACRANIAL,BILAT Douglas Gutierrez MD [address] [place] [address] Referral ID Status Reason Start Date Expiration Date V isits Requested Visits Authorized [id number] Pending Review 10/25/2021 10/25/2022 1 1 Chief [...] section and content) DATE CREATED AUTHOR 10/17/2021 [facility] dical Specialist DATE CREATED AUTHOR AUTHOR'S ORGANIZ ATION 11/04/2021 [facility] DATE CREATED AUTHOR AUTHOR'S ORGANIZ ATION 12/15/2021 [facility] DATE CREATED AUTHOR AUTHOR'S ORGANIZ ATION 07/05/2022 [facility] DATE CREATED AUTHOR AUTHOR'S ORGANIZ ATION 02/03/2023 [facility] DATE CREATED AUTHOR AUTHOR'S ORGANIZ ATION 08/01/2023 [facility] dical Specialists EPIC DATE CREATED AUTHOR AUTHOR'S ORGANIZ ATION 09/04/2023 [facility] DATE CREATED AUTHOR AUTHOR'S ORGANIZ ATION 09/08/2023 [facility] DATE CREATED AUTHOR AUTHOR'S ORGANIZ ATION 09/16/2023 [facility] Reason for Visit (unrecogniz ed section and content) Specialty Diagnoses / Procedures Referred By Erlin hernandez Referred To Contact Diagnoses Chest pain, unspecified type Syncope, unspecified syncope type Procedures Cardiac event monitor Douglas Gutierrez MD [address] [place] [id number] Referral ID Status Reason Start Date Expiration Date Visits Re quested Visits Authorized [id number] Closed 10/25/2021 10/25/2022 1 1 Specialty Diagnoses / Procedures Referred By Erlin hernandez Referred To Contact Cardiology Diagnoses Chest pain, unspecified type Syncope, unspecified syncope type R07.9 (ICD-10-CM) - Chest pain, unspecified type Procedures Stress test, myoview CHG MYOCARDIAL SPECT MULTIPLE STUDIES 31272 - CHG MYOCARDIAL SPECT MULTIPLE STUDIES Douglas Gutierrez MD [address] [place] [address] [facility] [address] [place] [address] Referral ID Status Reason Start Date Expiration Date Visits Re quested Visits Authorized [id number] Closed 10/25/2021 10/25/2022 4 4 Specialty Diagnoses / Procedures Referred By Contac t Referred To Contact Vascular Lab Diagnoses Bruit R09.89 (ICD-10-CM) - Bruit Procedures VL DUP CAROTID BILATERAL WV DUPLEX SCAN EXTRACRANIAL,BILAT 93467 - WV DUPLEX SCAN EXTRACRANIAL,BILAT Douglas Gutierrez MD [address] [place] [address] Referral ID Status Reason Start Date Expiration Date V isits Requested Visits Authorized [id number] Pending Review 10/25/2021 10/25/2022 1 1 Reason Comments Appointment Reason Comments New Patient Evaluation Reason Comments [employer] Paperwork Care Teams (unrecognized sec tion and content) Team Status: Active Member Role Status Dates Rene Cannon MD Primary Care Provider Active Team Status: Inactive Member Role Status Dates Rene aCnnon MD Primary Care Provider Active Jean Paul [...] Active Nohemy Linder MD Other Provider Active [employer]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 Specialty Start Date End Date Rene Cannon MD [address] [place] [address] PCP - General 10/17/21 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 Specialty Start Date End Date Rene Cannon MD [address] [place] [address] PCP - General 10/17/21 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 Specialty Start Date End Date Rene Cannon MD [address] [place] [address] PCP - General 10/17/21 [employer]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 Specialty Start Date End Date Rene Cannon MD [address] [facility] [place] [address] PCP - General 10/17/21 [employer]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 Specialty Start Date End Date Rene Cannon MD [address] [place] [address] PCP - General 10/17/21 Team Status: Inactive Member Role Status Dates Rene Cannon MD Primary Care Provider Active Joselito Madsen DO Attending Provider Active 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 Specialty Start Date End Date Rene Cannon MD [address] [place] [address] (Fax) PCP - General Family Medicine 08/05/23 [employer]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 Specialty Start Date End Date Rene Cannon MD [address] [facility] [place] [address] (Fax) PCP - General Family Medicine 08/05/23 [employer]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 Specialty Start Date End Date Rene Cannon MD [address] [facility] [place] [address] (Fax) PCP - General Family Medicine 08/05/23 Or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 Specialty Start Date End Date Rene Cannon MD [address] [facility] [address] PCP - General Family Medicine 08/05/23 Source Comments (unrecognize d section and content) In the event this informatio n is protected by the Federal Confidentiality of Alcohol and Drug Abuse Patient Records regulations: The Federal rules restrict any use of the information to criminally investigate or prosecute any alcohol or drug abuse patient.[facility] the event this information is protected by the Federal Confidentiality of Alcohol and Drug Abuse Patient Records regulations: The Federal rules restrict any use of the information to criminally investigate or prosecute any alcohol or drug abuse patient.[facility] Hospital[facility] the event this information is protected by the Federal Confidentiality of Alcohol and Drug Abuse Patient Records regulations: The Federal rules restrict any use of the information to criminally investigate or prosecute any alcohol or drug abuse patient.[facility] Hospital[facility] the event this information is protected by the Federal Confidentiality of Alcohol and Drug Abuse Patient Records regulations: The Federal rules restrict any use of the information to criminally investigate or prosecute any alcohol or drug abuse patient.[facility] Hospital[facility] the event this information is protected by the Federal Confidentiality of Alcohol and Drug Abuse Patient Records regulations: The Federal rules restrict any use of the information to criminally investigate or prosecute any alcohol or drug abuse patient.[facility] FOR RECORDS PERTAINING TO PATIENTS WHO [...] BE BASED ON THE PRIMARY CLINICAL RECORDS. [facility] [employer] [facility]. provides no warranty or guarantee of the accuracy or completeness of information in this document.
[2023-09-22 12:02] LABS: Basophils Percent Auto 0.5 % (0.2-2.0); Eosinophils Absolute Auto 0.2 10^3/uL (0.0-0.7); Eosinophils Percent Auto 3.3 % (0.9-7.0); Hematocrit 32.6 % (42.0-54.0); Hemoglobin 10.4 g/dL (14.0-18.0); Immature Granulocytes Abs Auto 0.02 10^3/uL (0.00-0.03); Immature Granulocytes Pct Auto 0.3 % (0.0-0.5); Lymphocytes Absolute Auto 0.9 10^3/uL (1.2-3.8); Mean Corpuscular HGB Conc 31.9 g/dL (29.9-35.2); Mean Corpuscular Hemoglobin 29.2 pg (25.9-34.0); Mean Corpuscular Volume 91.6 fL (80.0-94.0); Mean Platelet Volume 11.9 fL (9.5-13.5); Monocytes Absolute Auto 0.8 10^3/uL (0.3-0.8); Monocytes Percent Auto 12.6 % (1.7-12.0); Neutrophils Absolute Auto 4.6 10^3/uL (1.4-6.5); Neutrophils Percent Auto 69.3 % (43.0-75.0); Platelet Count 287 10^3/uL (150-450); Red Blood Count 3.56 10^6/uL (4.70-6.10); Red Cell Distribution Width 13.6 % (11.0-15.0); White Blood Count 6.6 10^3/uL (4.0-11.0)
[2023-09-22 13:01] LABS: Albumin Level 2.9 g/dL (3.4-5.0); Anion Gap 12.9; Aspartate Amino Transferase 22 U/L (15-37); Calcium 8.3 mg/dL (8.5-10.1); Carbon Dioxide 27.6 mmol/L (21.0-32.0); Chloride 103 mmol/L (98-107); Estimated GFR (African America >60 (>=60); Estimated GFR (Non-African Ame >60 (>=60); Glucose 89 mg/dL (74-106); Phosphorus 4.8 mg/dL (2.6-4.7); Potassium 4.5 mmol/L (3.5-5.1); Sodium 139 mmol/L (136-145)
[2023-09-22 13:18] LABS: Alanine Aminotransferase 28 U/L (16-63); Albumin Globulin Ratio 0.8; Alkaline Phosphatase 194 U/L (46-116); Bilirubin Total 0.7 mg/dL (0.2-1.0); Globulin 3.6 g/dL; Total Protein 6.5 g/dL (6.4-8.2); Triglycerides 44 mg/dL (<=150)
== END 2023-09-22 11:38 | disposition home or self-care (01) ==
LOC: LAB 11:37
DX: Z79.899 Other long term (current) drug therapy (principal)
CPT/HCPCS: 36415; 80053; 83735; 84100; 84478; 85025

== ENCOUNTER 2023-09-29 11:46 | Outpatient (REF) | payer BC, SELFPAY ==
--- OUTSIDE RECORDS SUMMARY | 2023-09-29 11:55 | XMS_ITS | CCD ---
Author Name Unknown Address [address] [place] [address] Organization [facility] Care Team Providers Care Compensation Coordinator Name Role Phone DAVIS, DR IRELAND Admitting [...] Arnel Madsen Referring Unavailable Dr. Rene Cannon [facility] Unava ilable Arnel Madsen Attending Unavailable Arnel Madsen Referring Unavailable Dr. Rene Cannon [facility] Unava ilArnel Loredo Attending Unavailable Rene Cannon Unavailable Unavailable Unavailable EmanuelChantal Unavailable MD Rene Cannon Primary Care Provider [phone] DO Jean Paul Gutiérrez Emergency Provider MD Gela Eller Admit Provider [phone] MD Gela Eller Attending Provider MD Elsi [...] Unavailable BOLIVAR DEAL Consulting Unavailable RENE CANNON [facility] Unavailab le NAFFOUSILVANO, SAMER A Attending Unavailable NAFFOBHAVANA, SAMER A Admitting Unavailable ARISTEO, SAMER A Admitting Unavailable RENE CANNON [facility] Care Unavailab le NAFFOUJE, SAMER A Attending Unavailable NAFFOUSILVANO, SAMER A Referring Unavailable NAFFOBHAVANA, SAMER A Attending Unavailable RENE CANNON [facility] Unavailab le NAFFOUJE, SAMER A Attending Unavailable RENE CANNON [facility] Unavailab le ASAAD, IMAD Referring [...] Start: 10-24-2021 take 1 capsule by mo nv[facility] once daily in the evening dicyclomine (BENTYL) [...] Test Name Value Interpretation Reference Range Facility [facility] 09-15-2023 [facility] Telephone ([id number]) -- AISHA JULIEN ([id number]) 1955 M Date Time Provider Department 09/15/23 [facility] A [id number] During your visit today, we recorded the following information about you: Kelsea Valenzuela MA 09/15/2023 1:04 PM Signed Cesilia from [facility] called needing clarification on his discharge medications. Call back # [phone] Jessie Zamora RN 09/15/2023 4:21 PM Signed Called Cesilia armstrong from [facility] to help clarify medications from recent admission. Allergies As of Date: 09/15/2023 (No Known Allergies) Date Reviewed: 09/05/2023 Reviewed by: Guerline Peralta, LUCILLE - Fully Assessed Reason for Visit: Patient Question [5147] [employer] - Other [5067] Prescriptions as of 09/15/2023 - potassium (POTASSIMIN [...] Encounter Status:Closed by JESSIE ZAMORA on 09/15/23 [facility] Judy 09-10-2023 [facility] Telephone ([id number]) -- AISAH JULIEN ([id number]) 1955 M Date Time Provider Department 09/10/23 [facility] [id number] During your visit today, we recorded the following information about you: Sylvia Bueno Naveen 09/10/2023 2:20 PM Signed Mayra called from [facility]. She need a current medication list faxed to [phone]. If you have any questions she can be reached at [phone]. Thank you! Jessie aZmora RN 09/11/2023 10:01 AM Signed Hospital discharge medication list faxed 09/10/23 to [facility]. Allergies As of Date: 09/10/2023 (No [...] Status:Closed by JESSIE ZAMORA on 09/11/23 Normal [facility] Albumin SerPl-mCncon 024 Albumin [Mass/Vol] 2.9 g/dL Low 3.9-4.[address] [facility] Comment on above: Order Comment: Arben suarez Type: BLOOD SPECIMENOrdering Facility: [facility] Address: [address] [place] [address] Performed By: #### 1 751-7, 88410-6, , 2776-08 ####[facility] LABORATORYCLIA [id number] [place] [address] [place] Basic metabolic 2000 panelon 09-05-2023 Anion gap [Moles/Vol] 10 mmol/L Normal 05-12 [facility] Comment on above: Order Comment: Arben suarez Type: BLOOD SPECIMENOrdering Facility: [facility] Address: [address] [place] [address] Performed By: #### 1 751-7, 63877-3, , 2776-08 ####GE[facility] LABORATORYCLIA [id number] [place] [address] [place] Calcium [Mass/Vol] 8.2 mg/dL Low 8.5-10.[address] [facility] Comment on above: Order Comment: Arben suarez Type: BLOOD SPECIMENOrdering Facility: [facility] Address: [address] [place] [id number] Performed By: #### 1 751-7, 86662-4, , 2776- ####GE[facility] LABORATORYCLIA [id number] [place] [id number] [place] Chloride [Moles/Vol] 107 mmol/L High 97-105 [facility] Comment on above: Order Comment: Speci men Type: BLOOD SPECIMENOrdering Facility: [facility] Address: [address] [place] [address] Performed By: #### 1 751-7, 80149-3, , 2776-08 ####[facility] LABORATORYCLIA [id number] [place] [id number] [place] CO2 [Moles/Vol] 24 mmol/L Normal 22-30 [facility] Comment on above: Order Comment: Speci men Type: BLOOD SPECIMENOrdering Facility: [facility] Address: [address] [place] [address] Performed By: #### 1 751-7, 21276-5, , 2776-08 ####[facility] LABORATORYCLIA [id number] [place] [address] [place] Creatinine [Mass/Vol] 0.83 mg/dL Normal 0.73-1.22 [facility] Comment on above: Order Comment: Speci men Type: BLOOD SPECIMENOrdering Facility: [facility] Address: [place] [address] Performed By: #### 1 751-7, 97488-4, , 2776-08 ####[facility] LABORATORYCLIA [id number] [place] [id number] [place] Creatinine and Glomerular filtration rate.predicted panel (S/P/Bld) 95 mL/min/1.73m??? Normal >=60 [facility] Comment on above: Order Comment: Speci men Type: BLOOD SPECIMENOrdering Facility: [facility] Address: [address] [place] [address] Result Comment: Bailey mated Glomerular Filtration Rate [...] actual GFR. Performed By: #### 1 751-7, 30177-5, , 2776- ####[facility] LABORATORYCLIA [id number] [place] [address] [place] Glucose [Mass/Vol] 75 mg/dL Normal 74-[address] [facility] Comment on above: Order Comment: Arben suarze Type: BLOOD SPECIMENOrdering Facility: [facility] Address: [address] [place] [address] Result Comment: The [place] Diabetes Association (ADA) provides guidance for cutoff [...] Standards of Medical Care in Diabetes 2016, [place] [employer]. Diabetes Care. 2016.39(Suppl 1). Performed By: #### 1 751-7, 06330-7, , 2776-08 ####GE[facility] LABORATORYCLIA [id number] [place] [address] [place] Potassium [Moles/Vol] 4.4 mmol/L Normal 3.7-5.1 [facility] Comment on above: Order Comment: Arben suarez Type: BLOOD SPECIMENOrdering Facility: [facility] Address: [address] [place] [address] Performed By: #### 1 751-7, 56331-3, 37094-5, 2776-08 ####[facility] LABORATORYCLIA [id number] [place] [address] [place] Sodium [Moles/Vol] 141 mmol/L Normal 136-[address] [facility] Comment on above: Order Comment: Speci men Type: BLOOD SPECIMENOrdering Facility: [facility] Address: [place] [address] Performed By: #### 1 751-7, 66006-0, 00595-2, 2776-1 ####[facility] LABORATORYCLIA [id number] [place] [address] [place] Urea nitrogen [Mass/Vol] 25 mg/dL High 9-24 [facility] Comment on above: Order Comment: Speci men Type: BLOOD SPECIMENOrdering Facility: [facility] Address: [place] [address] Performed By: #### 1 751-7, 40501-4, , 2776- ####[facility] LABORATORYCLIA [id number] [place] [address] [facility] CASE MANAGEMon 09-05-2023 CASE MANAGEM Normal [facility] CASE MANAGEM Normal [facility] CASE MANAGEM Normal [facility] CASE MANAGEM Normal [facility] Magnesium [Mass/Vol] 2.2 mg/dL Normal 1.7-2.3 [facility] Comment on above: Order Comment: Speci men Type: BLOOD SPECIMENOrdering Facility: [facility] Address: [place] [address] Performed By: #### 1 751-7, 37353-3, , 2776-08 ####[facility] LABORATORYCLIA [id number] [place] [address] [facility] [place] NUTRITIONon 09-05-2023 NUTRITION Normal [facility] Phosphate SerPl-mCncon 09-05 Phosphate [Mass/Vol] 4.6 mg/dL Normal 2.7-4.8 [facility] Comment on above: Order Comment: Speci men Type: BLOOD SPECIMENOrdering Facility: [facility] Address: [address] [facility] [place] [address] Performed By: #### 1 751-7, 67136-5, , 2776-08 ####GE[facility] LABORATORYCLIA [id number] [place] [address] [place] Albumin SerPl-mCncon 024 Albumin [Mass/Vol] 2.4 g/dL Low 3.9-4.[address] [facility] Comment on above: Order Comment: Speci men Type: BLOOD SPECIMENOrdering Facility: [facility] Address: [address] [place] [address] Performed By: #### 1 751-7, 97747-5, , 2776-08 ####GE[facility] LABORATORYCLIA [id number] [place] [address] [place] Basic metabolic 2000 panelon 09-04-2023 Anion gap [Moles/Vol] 6 mmol/L Low 9-18 [facility] Comment on above: Order Comment: Speci men Type: BLOOD SPECIMENOrdering Facility: [facility] Address: [address] [place] [address] Performed By: #### 1 751-7, 77393-6, , 2776-08 ####GE[facility] LABORATORYCLIA [id number] [place] [address] [place] Calcium [Mass/Vol] 8.0 mg/dL Low 8.5-10.[address] [facility] Comment on above: Order Comment: Speci men Type: BLOOD SPECIMENOrdering Facility: [facility] Address: [address] [place] [address] Performed By: #### 1 751-7, 31849-8, , 2776-08 ####GE[facility] LABORATORYCLIA [id number] [place] [address] [place] Chloride [Moles/Vol] 103 mmol/L Normal 97-105 [facility] Comment on above: Order Comment: Speci men Type: BLOOD SPECIMENOrdering Facility: [facility] Address: [address] [place] [address] Performed By: #### 1 751-7, 79284-8, 07731-1, 2776-08 ####[facility] LABORATORYCLIA [id number] [place] [address] [place] CO2 [Moles/Vol] 30 mmol/L Normal 22-30 [facility] Comment on above: Order Comment: Speci men Type: BLOOD SPECIMENOrdering Facility: [facility] Address: [address] [place] [address] Performed By: #### 1 751-7, 51619-8, , 2776-08 ####[facility] LABORATORYCLIA [id number] [place] [address] [place] Creatinine [Mass/Vol] 0.80 mg/dL Normal 0.73-1.22 [facility] Comment on above: Order Comment: Speci men Type: BLOOD SPECIMENOrdering Facility: [facility] Address: [address] [place] [address] Performed By: #### 1 751-7, 08001-1, , 2776-08 ####[facility] LABORATORYCLIA [id number] [place] [address] [place] Creatinine and Glomerular filtration rate.predicted panel (S/P/Bld) 96 mL/min/1.73m??? Normal >=60 [facility] Comment on above: Order Comment: Speci men Type: BLOOD SPECIMENOrdering Facility: [facility] Address: [address] [place] [address] Result Comment: Bailey mated Glomerular Filtration Rate [...] actual GFR. Performed By: #### 1 751-7, 10811-1, 26046-8, 2776- ####[facility] LABORATORYCLIA [id number] [place] [address] [place] Glucose [Mass/Vol] 109 mg/dL High 74-[address] [facility] Comment on above: Order Comment: Speci men Type: BLOOD SPECIMENOrdering Facility: [facility] Address: [place] [address] Result Comment: The [place] Diabetes Association (ADA) provides guidance for cutoff [...] Standards of Medical Care in Diabetes 2016, [place] [employer]. Diabetes Care. 2016.39(Suppl 1). Performed By: #### 1 751-7, 74343-1, , 2776-08 ####[facility] LABORATORYCLIA [id number] [place] [address] [place] Potassium [Moles/Vol] 4.3 mmol/L Normal 3.7-5.1 [facility] Comment on above: Order Comment: Arben daniela Type: BLOOD SPECIMENOrdering Facility: [facility] Address: [place] [address] Performed By: #### 1 751-7, 29183-4, , 2776-08 ####GE[facility] LABORATORYCLIA [id number] [place] [address] [place] Sodium [Moles/Vol] 139 mmol/L Normal 136-[address] [facility] Comment on above: Order Comment: Speci men Type: BLOOD SPECIMENOrdering Facility: [facility] Address: [address] [place] [address] Performed By: #### 1 751-7, 77176-4, , 2776-08 ####[facility] LABORATORYCLIA [id number] [place] [address] [place] Urea nitrogen [Mass/Vol] 21 mg/dL Normal 9-24 [facility] Comment on above: Order Comment: Speci men Type: BLOOD SPECIMENOrdering Facility: [facility] Address: [place] [address] Performed By: #### 1 751-7, 57240-5, , 2776-08 ####[facility] LABORATORYCLIA [id number] [place] [address] [place] CASE MANAGEMon 09-04-2023 CASE MANAGEM Normal [facility] Magnesium SerPl-mCncon 09-04 Magnesium [Mass/Vol] 2.1 mg/dL Normal 1.7-2.3 [facility] Comment on above: Order Comment: Speci men Type: BLOOD SPECIMENOrdering Facility: [facility] Address: [place] [address] Performed By: #### 1 751-7, 63595-7, , 2776-08 ####[facility] LABORATORYCLIA [id number] [place] [address] [place] NUTRITIONon 09-04-2023 NUTRITION Normal [facility] Phosphate SerPl-mCncon 09-04 Phosphate [Mass/Vol] 3.6 mg/dL Normal 2.7-4.8 [facility] Comment on above: Order Comment: Speci men Type: BLOOD SPECIMENOrdering Facility: [facility] Address: [place] [address] Performed By: #### 1 751-7, 58682-9, , 2776-08 ####[facility] STE[facility] LABORATORYCLIA [id number] [place] [address] [place] Albumin SerPl-mCncon 024 Albumin [Mass/Vol] 2.7 g/dL Low 3.9-4.[address] [facility] Comment on above: Order Comment: Speci men Type: BLOOD SPECIMENOrdering Facility: [facility] Address: [place] [address] Performed By: #### 1 751-7, 06009-6, , 2776-08 ####[facility] STE[facility] LABORATORYCLIA [id number] [place] [address] [place] Basic metabolic 2000 panelon 09-03-2023 Anion gap [Moles/Vol] 9 mmol/L Normal 9-18 [facility] Comment on above: Order Comment: Speci men Type: BLOOD SPECIMENOrdering Facility: [facility] Address: [address] [place] [address] Performed By: #### 1 751-7, 99450-3, , 2776-08 ####[facility] LABORATORYCLIA [id number] [place] [address] [place] Calcium [Mass/Vol] 8.1 mg/dL Low 8.5-10.[address] [facility] Comment on above: Order Comment: Speci men Type: BLOOD SPECIMENOrdering Facility: [facility] Address: [address] [place] [address] Performed By: #### 1 751-7, 60146-1, , 2776-08 ####[facility] LABORATORYCLIA [id number] [place] [address] [place] Chloride [Moles/Vol] 97 mmol/L Normal 97-105 [facility] Comment on above: Order Comment: Speci men Type: BLOOD SPECIMENOrdering Facility: [facility] Address: [address] [place] [address] Performed By: #### 1 751-7, 97266-2, , 2776-08 ####[facility] LABORATORYCLIA [id number] [place] [address] [place] CO2 [Moles/Vol] 31 mmol/L High 22-30 [facility] Comment on above: Order Comment: Speci men Type: BLOOD SPECIMENOrdering Facility: [facility] Address: [address] [place] [address] Performed By: #### 1 751-7, 58028-3, , 2776- ####[facility] LABORATORYCLIA [id number] [place] [address] [place] Creatinine [Mass/Vol] 0.84 mg/dL Normal 0.73-1.22 [facility] Comment on above: Order Comment: Arben suarez Type: BLOOD SPECIMENOrdering Facility: [facility] Address: [address] [place] [address] Performed By: #### 1 751-7, 34183-8, 03912-4, 2776- ####[facility] LABORATORYCLIA [id number] [place] [address] [place] Creatinine and Glomerular filtration rate.predicted panel (S/P/Bld) 95 mL/min/1.73m??? Normal >=60 [facility] Comment on above: Order Comment: Arben suarez Type: BLOOD SPECIMENOrdering Facility: [facility] Address: [address] [place] [address] Result Comment: Bailey mated Glomerular Filtration Rate [...] actual GFR. Performed By: #### 1 751-7, 82509-1, , 2776-08 ####[facility] LABORATORYCLIA [id number] [place] [address] [place] Glucose [Mass/Vol] 91 mg/dL Normal 74-[address] [facility] Comment on above: Order Comment: Arben suarez Type: BLOOD SPECIMENOrdering Facility: [facility] Address: [address] [place] [address] Result Comment: The [place] Diabetes Association (ADA) provides guidance for cutoff [...] Standards of Medical Care in Diabetes 2016, [place] [employer]. Diabetes Care. 2016.39(Suppl 1). Performed By: #### 1 751-7, 44821-6, , 2776-08 ####[facility] LABORATORYCLIA [id number] [place] [address] [place] Potassium [Moles/Vol] 4.1 mmol/L Normal 3.7-5.1 [facility] Comment on above: Order Comment: Arben suarez Type: BLOOD SPECIMENOrdering Facility: [facility] Address: [address] [place] [address] Performed By: #### 1 751-7, 88481-6, , 2776-08 ####[facility] LABORATORYCLIA [id number] [place] [address] [place] Sodium [Moles/Vol] 137 mmol/L Normal 136-[address] [facility] Comment on above: Order Comment: Arben suarez Type: BLOOD SPECIMENOrdering Facility: [facility] Address: [address] [place] [address] Performed By: #### 1 751-7, 95513-9, , 2776-08 ####[facility] LABORATORYCLIA [id number] [place] [address] [place] Urea nitrogen [Mass/Vol] 21 mg/dL Normal 9-24 [facility] Comment on above: Order Comment: Arben suarez Type: BLOOD SPECIMENOrdering Facility: [facility] Address: [address] [place] [address] Performed By: #### 1 751-7, 15608-9, , 2776-08 ####[facility] LABORATORYCLIA [id number] [place] [address] [place] CASE MANAGEMon 09-03-2023 CASE MANAGEM Normal [facility] Magnesium SerPl-mCncon 09-03 Magnesium [Mass/Vol] 2.0 mg/dL Normal 1.7-2.3 [facility] Comment on above: Order Comment: Speci men Type: BLOOD SPECIMENOrdering Facility: [facility] Address: [place] [address] Performed By: #### 1 751-7, 01102-3, , 2776-1 ####GE[facility] LABORATORYCLIA [id number] [place] [address] [facility] NUTRITIONon 09-03-2023 NUTRITION Normal [facility] Phosphate [facility]Pl[facility] Phosphate [Mass/Vol] 3.7 mg/dL Normal 2.7-4.8 [facility] Comment on above: Order Comment: Speci men Type: BLOOD SPECIMENOrdering Facility: [facility] Address: [address] [place] [address] Performed By: #### 1 751-7, 25461-4, , 2776-08 ####[facility] LABORATORYCLIA [id number] [place] [address] [facility] [place] ALLIED HEALTHon 09-02-2023 ALLIED HEALTH Normal [facility] Albumin [facility] 024 Albumin [Mass/Vol] 2.8 g/dL Low 3.9-4.[address] [facility] Comment on above: Order Comment: Speci men Type: BLOOD SPECIMENOrdering Facility: [facility] Address: [place] [address] Performed By: #### 1 751-7, 94799-7, , 8 ####[facility] LABORATORYCLIA [id number] [place] [address] [facility] [place] Basic metabolic 2000 panelon 09-02-2023 Anion gap [Moles/Vol] 6 mmol/L Low 9-18 [facility] Comment on above: Order Comment: Speci men Type: BLOOD SPECIMENOrdering Facility: [facility] Address: [place] [address] Performed By: #### 1 751-7, 35772-4, , 8 ####[facility] LABORATORYCLIA [id number] [place] [address] [place] Calcium [Mass/Vol] 8.3 mg/dL Low 8.5-10.[address] [facility] Comment on above: Order Comment: Speci men Type: BLOOD SPECIMENOrdering Facility: [facility] Address: [place] [address] Performed By: #### 1 751-7, 09956-5, 88691-1, 8 ####[facility] LABORATORYCLIA [id number] [place] [address] [place] Chloride [Moles/Vol] 100 mmol/L Normal 97-105 [facility] Comment on above: Order Comment: Speci men Type: BLOOD SPECIMENOrdering Facility: [facility] Address: [place] [address] Performed By: #### 1 751-7, 23965-7, , 2571-03 ####[facility] LABORATORYCLIA [id number] [place] [address] [place] CO2 [Moles/Vol] 34 mmol/L High 22-30 [facility] Comment on above: Order Comment: Speci men Type: BLOOD SPECIMENOrdering Facility: [facility] Address: [place] [address] Performed By: #### 1 751-7, 44321-9, , 2571-03 ####[facility] LABORATORYCLIA [id number] [place] [address] [place] Creatinine [Mass/Vol] 0.88 mg/dL Normal 0.73-1.22 [facility] Comment on above: Order Comment: Speci men Type: BLOOD SPECIMENOrdering Facility: [facility] Address: [place] [address] Performed By: #### 1 751-7, 98404-8, , 2571-03 ####[facility] LABORATORYCLIA [id number] [place] [address] [place] Creatinine and Glomerular filtration rate.predicted panel (S/P/Bld) 94 mL/min/1.73m??? Normal >=60 [facility] Comment on above: Order Comment: Arben suarez Type: BLOOD SPECIMENOrdering Facility: [facility] Address: [address] [place] [address] Result Comment: Bailey mated Glomerular Filtration Rate [...] actual GFR. Performed By: #### 1 751-7, 95392-0, 18759-3, 2571-03 ####[facility] LABORATORYCLIA [id number] [place] [address] [place] Glucose [Mass/Vol] 95 mg/dL Normal 74-[address] [facility] Comment on above: Order Comment: Arben suarez Type: BLOOD SPECIMENOrdering Facility: [facility] Address: [address] [place] [address] Result Comment: The [place] Diabetes Association (ADA) provides guidance for cutoff [...] Standards of Medical Care in Diabetes 2016, [place] [employer]. Diabetes Care. 2016.39(Suppl 1). Performed By: #### 1 751-7, 65315-4, , 2571-03 ####[facility] LABORATORYCLIA [id number] [place] [address] [place] Potassium [Moles/Vol] 3.4 mmol/L Low 3.7-5.1 [facility] Comment on above: Order Comment: Arben suarez Type: BLOOD SPECIMENOrdering Facility: [facility] Address: [address] [place] [address] Performed By: #### 1 751-7, 17218-0, , 2571-03 ####[facility] LABORATORYCLIA [id number] [place] [address] [place] Sodium [Moles/Vol] 140 mmol/L Normal 136-[address] [facility] Comment on above: Order Comment: Speci men Type: BLOOD SPECIMENOrdering Facility: [facility] Address: [address] [place] [address] Performed By: #### 1 751-7, 80021-5, , 2571-03 ####[facility] LABORATORYCLIA [id number] [place] [address] [place] Urea nitrogen [Mass/Vol] 24 mg/dL Normal 9-24 [facility] Comment on above: Order Comment: Speci men Type: BLOOD SPECIMENOrdering Facility: [facility] Address: [address] [place] [address] Performed By: #### 1 751-7, 54437-7, , 2571-03 ####[facility] LABORATORYCLIA [id number] [place] [id number] [place] CBC panel Auto (Bld)on 09-02 Erythrocyte distribution width (RBC) [Ratio] 12.4 % Normal 11.5-15.0 [facility] Comment on above: Order Comment: Speci men Type: BLOOD SPECIMENOrdering Facility: [facility] Address: [address] [place] [address] Performed By: #### 5 8410-2 ####[facility] LABORATORYCLIA [id number] [place] [id number] [place] Hematocrit (Bld) [Volume fraction] 29.2 % Low 39.0-51.0 [facility] Comment on above: Order Comment: Speci men Type: BLOOD SPECIMENOrdering Facility: [facility] Address: [address] [place] [address] Performed By: #### 5 8410-2 ####[facility] LABORATORYCLIA [id number] [place] [address] [place] Hemoglobin (Bld) [Mass/Vol] 9.8 g/dL Low 13.0-17.0 [facility] Comment on above: Order Comment: Speci men Type: BLOOD SPECIMENOrdering Facility: [facility] Address: [address] [place] [address] Performed By: #### 5 8410-2 ####[facility] LABORATORYCLIA [id number] [place] [address] [place] MCH (RBC) [Entitic mass] 29.3 pg Normal 26.0-34.0 [facility] Comment on above: Order Comment: Speci men Type: BLOOD SPECIMENOrdering Facility: [facility] Address: [address] [place] [address] Performed By: #### 5 8410-2 ####[facility] LABORATORYCLIA [id number] [address] [place] MCHC (RBC) [Mass/Vol] 33.6 g/dL Normal 30.5-36.0 [facility] Comment on above: Order Comment: Speci men Type: BLOOD SPECIMENOrdering Facility: [facility] Address: [address] [place] [address] Performed By: #### 5 8410-2 ####[facility] LABORATORYCLIA [id number] [address] [place] MCV (RBC) [Entitic vol] 87.4 fL Normal 80.0-100.0 [facility] Comment on above: Order Comment: Speci men Type: BLOOD SPECIMENOrdering Facility: [facility] Address: [address] [place] [address] Performed By: #### 5 8410-2 ####[facility] LABORATORYCLIA [id number] [address] [place] Nucleated RBC (Bld) [#/Vol] 10*3/uL Normal <0.01 [facility] Comment on above: Order Comment: Speci men Type: BLOOD SPECIMENOrdering Facility: [facility] Address: [address] [place] [address] Performed By: #### 5 8410-2 ####[facility] LABORATORYCLIA [id number] [place] [id number] [place] Platelet mean volume (Bld) [Entitic vol] 11.2 fL Normal 9.0-12.7 [facility] Comment on above: Order Comment: Speci men Type: BLOOD SPECIMENOrdering Facility: [facility] Address: [address] [place] [address] Performed By: #### 5 8410-2 ####[facility] LABORATORYCLIA [id number] [place] [id number] [place] Platelets (Bld) [#/Vol] 229 10*3/uL Normal 150-400 [facility] Comment on above: Order Comment: Speci men Type: BLOOD SPECIMENOrdering Facility: [facility] Address: [address] [place] [address] Performed By: #### 5 8410-2 ####[facility] LABORATORYCLIA [id number] [place] [address] [place] RBC (Bld) [#/Vol] 3.34 10*6/uL Low 4.20-6.00 [facility] Comment on above: Order Comment: Speci men Type: BLOOD SPECIMENOrdering Facility: [facility] Address: [address] [place] [address] Performed By: #### 5 8410-2 ####[facility] LABORATORYCLIA [id number] [place] [id number] [place] WBC (Bld) [#/Vol] 5.51 10*3/uL Normal 3.70-11.00 [facility] Comment on above: Order Comment: Speci men Type: BLOOD SPECIMENOrdering Facility: [facility] Address: [address] [place] [address] Performed By: #### 5 8410-2 ####[facility] LABORATORYCLIA [id number] [place] [id number] [place] PANCREAS W IVCONon 2023 CT PANCREAS W IVCON Normal [facility] Magnesium SerPl-mCncon 09-02 Magnesium [Mass/Vol] 1.9 mg/dL Normal 1.7-2.3 [facility] Comment on above: Order Comment: Speci men Type: BLOOD SPECIMENOrdering Facility: [facility] Address: [address] [place] [address] Performed By: #### 1 751-7, 23831-3, , 2571-03 ####[facility] LABORATORYCLIA [id number] [place] [id number] [place] NUTRITIONon 09-02-2023 NUTRITION Normal [facility] Phosphate SerPl-mCncon 09-02 Phosphate [Mass/Vol] 2.5 mg/dL Low 2.7-4.8 [facility] Comment on above: Order Comment: Speci men Type: BLOOD SPECIMENOrdering Facility: [facility] Address: [address] [place] [address] Performed By: #### 2 777-1 ####[facility] LABORATORYCLIA [id number] [address] Trigl SerPl-mCncon Triglyceride [Mass/Vol] 70 mg/dL Normal <150 [facility] Comment on above: Order Comment: Speci men Type: BLOOD SPECIMENOrdering Facility: [facility] Address: [address] [place] [address] Result Comment: <150 mg/dL, Normal 150-199 mg/dL, Borderline high 200-499 mg/dL, High>499 mg/dL, Very highReference:1. National Cholesterol Education Program ATP III Guideline At-A-Glance Quick Desk Reference: National Heart, Lung, and Blood [place]. National Institutes of Health. 2001: NIH Publication No. 01-3305. Performed By: #### 1 751-7, 36526-0, , 2571-03 ####[facility] LABORATORYCLIA [id number] [place] [id number] [place] Triglyceride [Mass/Vol]on FASTING TIME n/a Normal [facility] Comment on above: Order Comment: Speci men Type: BLOOD SPECIMENOrdering Facility: [facility] Address: [address] [place] [address] Performed By: #### 1 751-7, 67720-0, 93189-7, 2571-8 ####[facility] LABORATORYCLIA [id number] [place] [id number] [place] Basic metabolic 2000 panelon 09-01-2023 Anion gap [Moles/Vol] 10 mmol/L Normal 9-18 [facility] Comment on above: Order Comment: Speci men Type: BLOOD SPECIMENOrdering Facility: [facility] Address: [address] [place] [address] Performed By: #### 1 9123-9, 28424-5, 2777-1, 02525-6 ####[facility] LABORATORYCLIA [id number] [place] [id number] [place] Calcium [Mass/Vol] 8.4 mg/dL Low 8.5-10.[address] [facility] Comment on above: Order Comment: Speci men Type: BLOOD SPECIMENOrdering Facility: [facility] Address: [address] [place] [address] Performed By: #### 1 9123-9, 68678-9, 2777-1, 36699-0 ####[facility] LABORATORYCLIA [id number] [place] [id number] [place] Chloride [Moles/Vol] 102 mmol/L Normal 97-105 [facility] Comment on above: Order Comment: Speci men Type: BLOOD SPECIMENOrdering Facility: [facility] Address: [address] [place] [address] Performed By: #### 1 9123-9, 04777-1, 277-1, 01167-5 ####[facility] LABORATORYCLIA [id number] [place] [id number] [place] CO2 [Moles/Vol] 29 mmol/L Normal 22-30 [facility] Comment on above: Order Comment: Speci men Type: BLOOD SPECIMENOrdering Facility: [facility] Address: [address] [place] [address] Performed By: #### 1 9123-9, 11122-4, 2777-1, 28950-5 ####[facility] LABORATORYCLIA [id number] [place] [id number] [place] Creatinine [Mass/Vol] 0.93 mg/dL Normal 0.73-1.22 [facility] Comment on above: Order Comment: Arben suarez Type: BLOOD SPECIMENOrdering Facility: [facility] Address: [address] [place] [address] Performed By: #### 1 9123-9, 90404-3, 2777-1, 82953-0 ####[facility] LABORATORYCLIA [id number] [place] [address] [place] Creatinine and Glomerular filtration rate.predicted panel (S/P/Bld) 89 mL/min/1.73m??? Normal >=60 [facility] Comment on above: Order Comment: [facility] Type: BLOOD SPECIMENOrdering Facility: [facility] Address: [address] [place] [address] Result Comment: Bailey mated Glomerular Filtration Rate [...] actual GFR. Performed By: #### 1 9123-9, 97068-3, 2777-1, 61339-8 ####[facility] LABORATORYCLIA [id number] [place] [id number] [place] Glucose [Mass/Vol] 110 mg/dL High 74-[address] [facility] Comment on above: Order Comment: Speci daniela Type: BLOOD SPECIMENOrdering Facility: [facility] Address: [address] [place] [address] Result Comment: The [place] [employer] (ADA) provides guidance for cutoff [...] Standards of Medical Care in Diabetes 2016, [place] [employer]. Diabetes Care. 2016.39(Suppl 1). Performed By: #### 1 9123-9, 36455-4, 277-, 12016-4 ####[facility] LABORATORYCLIA [id number] [place] [id number] [place] Potassium [Moles/Vol] 3.3 mmol/L Low 3.7-5.1 [facility] Comment on above: Order Comment: Arben suarez Type: BLOOD SPECIMENOrdering Facility: [facility] Address: [address] [place] [address] Performed By: #### 1 9123-9, 48088-0, 2776-, 96287-1 ####[facility] LABORATORYCLIA [id number] [place] [id number] [place] Sodium [Moles/Vol] 141 mmol/L Normal 136-[address] [facility] Comment on above: Order Comment: Arben suarez Type: BLOOD SPECIMENOrdering Facility: [facility] Address: [address] [place] [address] Performed By: #### 1 9123-9, 03621-6, 2776-, 15927-2 ####[facility] LABORATORYCLIA [id number] [place] [id number] [place] Urea nitrogen [Mass/Vol] 27 mg/dL High 9-24 [facility] Comment on above: Order Comment: Arben suarez Type: BLOOD SPECIMENOrdering Facility: [facility] Address: [address] [place] [address] Performed By: #### 1 9123-9, 30235-3, 2776-, 37019-8 ####[facility] LABORATORYCLIA [id number] [place] [id number] [place] CBC W Auto Differential pane l (Bld)on 09-01-2023 Basophils (Bld) [#/Vol] 0.04 10*3/uL Normal <0.11 [facility] Comment on above: Order Comment: Speci men Type: BLOOD SPECIMENOrdering Facility: [facility] Address: [address] [place] [address] Performed By: #### 5 7021-8 ####[facility] LABORATORYCLIA [id number] [place] [address] [place] Basophils/100 WBC (Bld) 0.8 % Normal [facility] Comment on above: Order Comment: Speci men Type: BLOOD SPECIMENOrdering Facility: [facility] Address: [address] [place] [address] Performed By: #### 5 7021-8 ####[facility] LABORATORYCLIA [id number] [address] [place] Differential cell count method Nom (Bld) Auto Normal [facility] Comment on above: Order Comment: Speci men Type: BLOOD SPECIMENOrdering Facility: [facility] Address: [address] [place] [address] Performed By: #### 5 7021-8 ####[facility] LABORATORYCLIA [id number] [place] [address] [place] Eosinophils (Bld) [#/Vol] 0.17 10*3/uL Normal <0.46 [facility] Comment on above: Order Comment: Speci men Type: BLOOD SPECIMENOrdering Facility: [facility] Address: [address] [place] [address] Performed By: #### 5 7021-8 ####[facility] LABORATORYCLIA [id number] [place] [address] [place] Eosinophils/100 WBC (Bld) 3.5 % Normal [facility] Comment on above: Order Comment: Speci men Type: BLOOD SPECIMENOrdering Facility: [facility] Address: [address] [place] [address] Performed By: #### 5 7021-8 ####[facility] LABORATORYCLIA [id number] [place] [address] [place] Erythrocyte distribution width (RBC) [Ratio] 12.5 % Normal 11.5-15.0 [facility] Comment on above: Order Comment: Speci men Type: BLOOD SPECIMENOrdering Facility: [facility] Address: [address] [place] [address] Performed By: #### 5 7021-8 ####[facility] LABORATORYCLIA [id number] [place] [address] [place] Hematocrit (Bld) [Volume fraction] 28.8 % Low 39.0-51.0 [facility] Comment on above: Order Comment: Speci men Type: BLOOD SPECIMENOrdering Facility: [facility] Address: [address] [place] [address] Performed By: #### 5 7021-8 ####[facility] LABORATORYCLIA [id number] [address] [place] Hemoglobin (Bld) [Mass/Vol] 9.9 g/dL Low 13.0-17.0 [facility] Comment on above: Order Comment: Speci men Type: BLOOD SPECIMENOrdering Facility: [facility] Address: [address] [place] [address] Performed By: #### 5 7021-8 ####[facility] LABORATORYCLIA [id number] [address] [place] Immature granulocytes (Bld) [#/Vol] 10*3/uL Normal <0.10 [facility] Comment on above: Order Comment: Speci men Type: BLOOD SPECIMENOrdering Facility: [facility] Address: [address] [place] [address] Performed By: #### 5 7021-8 ####[facility] LABORATORYCLIA [id number] [address] [place] Immature granulocytes/100 WBC (Bld) 0.4 % Normal [facility] Comment on above: Order Comment: Speci men Type: BLOOD SPECIMENOrdering Facility: [facility] Address: [address] [place] [address] Performed By: #### 5 7021-8 ####[facility] LABORATORYCLIA [id number] [place] [address] [place] Lymphocytes (Bld) [#/Vol] 1.10 10*3/uL Normal 1.00-4.00 [facility] Comment on above: Order Comment: Speci men Type: BLOOD SPECIMENOrdering Facility: [facility] Address: [address] [place] [address] Performed By: #### 5 7021-8 ####[facility] LABORATORYCLIA [id number] [place] [address] [place] Lymphocytes/100 WBC (Bld) 22.7 % Normal [facility] Comment on above: Order Comment: Speci men Type: BLOOD SPECIMENOrdering Facility: [facility] Address: [address] [place] [address] Performed By: #### 5 7021-8 ####[facility] LABORATORYCLIA [id number] [place] [address] [place] MCH (RBC) [Entitic mass] 29.6 pg Normal 26.0-34.0 [facility] Comment on above: Order Comment: Speci men Type: BLOOD SPECIMENOrdering Facility: [facility] Address: [address] [place] [address] Performed By: #### 5 7021-8 ####[facility] LABORATORYCLIA [id number] [address] [place] MCHC (RBC) [Mass/Vol] 34.4 g/dL Normal 30.5-36.0 [facility] Comment on above: Order Comment: Speci men Type: BLOOD SPECIMENOrdering Facility: [facility] Address: [address] [place] [address] Performed By: #### 5 7021-8 ####[facility] LABORATORYCLIA [id number] [address] [place] MCV (RBC) [Entitic vol] 86.0 fL Normal 80.0-100.0 [facility] Comment on above: Order Comment: Speci men Type: BLOOD SPECIMENOrdering Facility: [facility] Address: [address] [place] [address] Performed By: #### 5 7021-8 ####[facility] LABORATORYCLIA [id number] [place] [id number] [place] Monocytes (Bld) [#/Vol] 0.86 10*3/uL Normal <0.87 [facility] Comment on above: Order Comment: Speci men Type: BLOOD SPECIMENOrdering Facility: [facility] Address: [address] [place] [address] Performed By: #### 5 7021-8 ####[facility] LABORATORYCLIA [id number] [place] [id number] [place] Monocytes/100 WBC (Bld) 17.8 % Normal [facility] Comment on above: Order Comment: Speci men Type: BLOOD SPECIMENOrdering Facility: [facility] Address: [address] [place] [address] Performed By: #### 5 7021-8 ####[facility] LABORATORYCLIA [id number] [place] [address] [place] Neutrophils (Bld) [#/Vol] 2.65 10*3/uL Normal 1.45-7.50 [facility] Comment on above: Order Comment: Speci men Type: BLOOD SPECIMENOrdering Facility: [facility] Address: [address] [place] [address] Performed By: #### 5 7021-8 ####[facility] LABORATORYCLIA [id number] [place] [id number] [place] Neutrophils/100 WBC (Bld) 54.8 % Normal [facility] Comment on above: Order Comment: Speci men Type: BLOOD SPECIMENOrdering Facility: [facility] Address: [address] [place] [address] Performed By: #### 5 7021-8 ####[facility] LABORATORYCLIA [id number] [place] [id number] [place] Nucleated RBC (Bld) [#/Vol] 10*3/uL Normal <0.01 [facility] Comment on above: Order Comment: Speci men Type: BLOOD SPECIMENOrdering Facility: [facility] Address: [address] [place] [address] Performed By: #### 5 7021-8 ####[facility] LABORATORYCLIA [id number] [place] [id number] [place] Nucleated RBC/100 WBC (Bld) [Ratio] 0.0 /100 WBC Normal [facility] Comment on above: Order Comment: Speci men Type: BLOOD SPECIMENOrdering Facility: [facility] Address: [address] [place] [address] Performed By: #### 5 7021-8 ####[facility] LABORATORYCLIA [id number] [place] [id number] [place] Platelet mean volume (Bld) [Entitic vol] 11.3 fL Normal 9.0-12.7 [facility] Comment on above: Order Comment: Speci men Type: BLOOD SPECIMENOrdering Facility: [facility] Address: [address] [place] [address] Performed By: #### 5 7021-8 ####[facility] LABORATORYCLIA [id number] [place] [id number] [place] Platelets (Bld) [#/Vol] 238 10*3/uL Normal 150-400 [facility] Comment on above: Order Comment: Speci men Type: BLOOD SPECIMENOrdering Facility: [facility] Address: [address] [place] [address] Performed By: #### 5 7021-8 ####[facility] LABORATORYCLIA [id number] [place] [id number] [place] RBC (Bld) [#/Vol] 3.35 10*6/uL Low 4.20-6.00 [facility] Comment on above: Order Comment: Speci men Type: BLOOD SPECIMENOrdering Facility: [facility] Address: [address] [place] [address] Performed By: #### 5 7021-8 ####[facility] LABORATORYCLIA [id number] [place] [id number] [place] WBC (Bld) [#/Vol] 4.84 10*3/uL Normal 3.70-11.00 [facility] Comment on above: Order Comment: Speci men Type: BLOOD SPECIMENOrdering Facility: [facility] Address: [address] [place] [address] Performed By: #### 5 7021-8 ####GE[facility] LABORATORYCLIA [id number] [place] [id number] [place] [facility] Hepatic function 2000 panelo n 09-01-2023 Albumin [Mass/Vol] 2.8 g/dL Low 3.9-4.[address] [facility] Comment on above: Order Comment: Speci men Type: BLOOD SPECIMENOrdering Facility: [facility] Address: [address] [place] [address] Performed By: #### 1 9123-9, 22809-8, 2777-1, 39683-4 ####[facility] LABORATORYCLIA [id number] [address] [place] ALP [Catalytic activity/Vol] 107 U/L Normal 38-113 [facility] Comment on above: Order Comment: Speci men Type: BLOOD SPECIMENOrdering Facility: [facility] Address: [address] [place] [address] Performed By: #### 1 9123-9, 33606-5, 2777-1, 12643-0 ####[facility] LABORATORYCLIA [id number] [address] [place] ALT [Catalytic activity/Vol] 21 U/L Normal 10-54 [facility] Comment on above: Order Comment: Speci men Type: BLOOD SPECIMENOrdering Facility: [facility] Address: [address] [place] [address] Performed By: #### 1 9123-9, 24678-5, 2777-1, 85136-8 ####[facility] LABORATORYCLIA [id number] [place] [id number] [place] AST [Catalytic activity/Vol] 14 U/L Normal 14-40 [facility] Comment on above: Order Comment: Speci men Type: BLOOD SPECIMENOrdering Facility: [facility] Address: [address] [place] [address] Performed By: #### 1 9123-9, 27132-4, 2777-1, 79938-7 ####[facility] LABORATORYCLIA [id number] [place] [id number] [place] Bilirubin [Mass/Vol] 0.4 mg/dL Normal 0.2-1.3 [facility] Comment on above: Order Comment: Speci men Type: BLOOD SPECIMENOrdering Facility: [facility] Address: [address] [place] [address] Performed By: #### 1 9123-9, 42934-1, 2777-1, 94983-8 ####[facility] STE[facility] LABORATORYCLIA [id number] [place] [address] [place] Bilirubin.conjugated [Mass/Vol] mg/dL Normal <0.2 [facility] Comment on above: Order Comment: Speci men Type: BLOOD SPECIMENOrdering Facility: [facility] Address: [address] [place] [address] Performed By: #### 1 9123-9, 04891-9, 277-, 55118-5 ####[facility] LABORATORYCLIA [id number] [place] [id number] [place] Protein [Mass/Vol] 5.4 g/dL Low 6.3-8.[address] [facility] Comment on above: Order Comment: Speci men Type: BLOOD SPECIMENOrdering Facility: [facility] Address: [address] [place] [address] Performed By: #### 1 9123-9, 61328-9, 2777-1, 83521-4 ####[facility] LABORATORYCLIA [id number] [place] [id number] [place] Magnesium SerPl-mCncon 09-01 Magnesium [Mass/Vol] 1.8 mg/dL Normal 1.7-2.3 [facility] Comment on above: Order Comment: Speci men Type: BLOOD SPECIMENOrdering Facility: [facility] Address: [address] [place] [address] Performed By: #### 1 9123-9, 60131-9, 2777-1, 27828-6 ####[facility] LABORATORYCLIA [id number] [place] [id number] [place] NURSING PROGon 09-01-2023 NURSING PROG Normal [facility] NUTRITIONon 09-01-2023 NUTRITION Normal [facility] Phosphate SerPl-mCncon 09-01 Phosphate [Mass/Vol] 2.8 mg/dL Normal 2.7-4.8 [facility] Comment on above: Order Comment: Speci men Type: BLOOD SPECIMENOrdering Facility: [facility] Address: [place] [address] Performed By: #### 1 9123-9, 36842-5, 2777-1, 66775-0 ####[facility] LABORATORYCLIA [id number] [place] [id number] [facility] Albumin SerPl-ncon 024 Albumin [Mass/Vol] 2.9 g/dL Low 3.9-4.[address] [facility] Comment on above: Order Comment: Speci men Type: BLOOD SPECIMENOrdering Facility: [facility] Address: [place] [address] Performed By: #### 2 777-1, 29753-4, 1750-7, 87584-8 ####[facility] LABORATORYCLIA [id number] [place] [id number] [place] Basic metabolic 2000 panelon 08-31-2023 Anion gap [Moles/Vol] 10 mmol/L Normal 9-18 [facility] Comment on above: Order Comment: Speci men Type: BLOOD SPECIMENOrdering Facility: [facility] Address: [place] [address] Performed By: #### 2 777-1, 86445-6, 175-7, 71033-2 ####[facility] LABORATORYCLIA [id number] [place] [id number] [place] Calcium [Mass/Vol] 8.3 mg/dL Low 8.5-10.[address] [facility] Comment on above: Order Comment: Speci men Type: BLOOD SPECIMENOrdering Facility: [facility] Address: [place] [address] Performed By: #### 2 777-1, 37799-0, 1751-02, ####MAR[facility] STEIN LABORATORYCLIA [id number] [place] [address] [place] Chloride [Moles/Vol] 101 mmol/L Normal 97-105 [facility] Comment on above: Order Comment: Speci men Type: BLOOD SPECIMENOrdering Facility: [facility] Address: [address] [place] [address] Performed By: #### 2 777-1, 29446-5, 1751-02, ####MARIA STEIN LABORATORYCLIA [id number] [place] [address] [place] CO2 [Moles/Vol] 23 mmol/L Normal 22-30 [facility] Comment on above: Order Comment: Speci men Type: BLOOD SPECIMENOrdering Facility: [facility] Address: [address] [place] [address] Performed By: #### 2 777-1, 57759-3, 1751-02, ####MARIA STEIN LABORATORYCLIA [id number] [place] [id number] [place] Creatinine [Mass/Vol] 1.22 mg/dL Normal 0.73-1.22 [facility] Comment on above: Order Comment: Speci men Type: BLOOD SPECIMENOrdering Facility: [facility] Address: [address] [place] [address] Performed By: #### 2 777-1, 80970-7, 1751-02, ####MARIA STEIN LABORATORYCLIA [id number] [place] [address] [place] Creatinine and Glomerular filtration rate.predicted panel (S/P/Bld) 65 mL/min/1.73m??? Normal >=60 [facility] Comment on above: Order Comment: Speci men Type: BLOOD SPECIMENOrdering Facility: [facility] Address: [address] [place] [address] Result Comment: Bailey mated Glomerular Filtration Rate [...] actual GFR. Performed By: #### 2 777-1, 04855-9, 1751-02, ####GEOVANNA LABORATORYCLIA [id number] [place] [address] [place] Glucose [Mass/Vol] 100 mg/dL High 74-[address] [facility] Comment on above: Order Comment: Arben suarez Type: BLOOD SPECIMENOrdering Facility: [facility] Address: [address] [place] [address] Result Comment: The [place] [employer] (ADA) provides guidance for cutoff [...] Standards of Medical Care in Diabetes 2016, [place] [employer]. Diabetes Care. 2016.39(Suppl 1). Performed By: #### 2 777-1, 79660-7, 1751-02, ####GEOVANNA LABORATORYCLIA [id number] [place] [address] [place] Potassium [Moles/Vol] 3.5 mmol/L Low 3.7-5.1 [facility] Comment on above: Order Comment: Arben suarez Type: BLOOD SPECIMENOrdering Facility: [facility] Address: [address] [place] [address] Performed By: #### 2 777-1, 18913-6, 1751-02, ####[facility] LABORATORYCLIA [id number] [place] [address] [place] Sodium [Moles/Vol] 134 mmol/L Low 136-[address] [facility] Comment on above: Order Comment: Speci men Type: BLOOD SPECIMENOrdering Facility: [facility] Address: [place] [address] Performed By: #### 2 777-1, 36076-5, 1751-02, ####MARIA STEIN LABORATORYCLIA [id number] [place] [id number] [place] Urea nitrogen [Mass/Vol] 39 mg/dL High 9-24 [facility] Comment on above: Order Comment: Speci men Type: BLOOD SPECIMENOrdering Facility: [facility] Address: [place] [address] Performed By: #### 2 777-1, 87596-8, 1751-02, ####MARIA STEIN LABORATORYCLIA [id number] [place] [id number] [place] CASE MANAGEMon 08-31-2023 CASE MANAGEM Normal [facility] Magnesium SerPl-mCncon 08-31 Magnesium [Mass/Vol] 1.7 mg/dL Normal 1.7-2.3 [facility] Comment on above: Order Comment: Speci men Type: BLOOD SPECIMENOrdering Facility: [facility] Address: [place] [address] Performed By: #### 2 777-1, 20644-1, 1751-02, ####MARIA STEIN LABORATORYCLIA [id number] [place] [id number] [place] Phosphate SerPl-mCncon 08-31 Phosphate [Mass/Vol] 2.6 mg/dL Low 2.7-4.8 [facility] Comment on above: Order Comment: Speci men Type: BLOOD SPECIMENOrdering Facility: [facility] Address: [place] [address] Performed By: #### 2 777-1, 83364-9, 1751-02, ####MARIA STEIN LABORATORYCLIA [id number] [place] [id number] [place] Albumin SerPl-mCncon 024 Albumin [Mass/Vol] 3.1 g/dL Low 3.9-4.[address] [facility] Comment on above: Order Comment: Speci men Type: BLOOD SPECIMENOrdering Facility: [facility] Address: [address] [place] [address] Performed By: #### 2 4321-2, 49634-0, 7, 2776- ####GEOVANNA LABORATORYCLIA [id number] [place] [address] [place] Basic metabolic 2000 panelon 08-30-2023 Anion gap [Moles/Vol] 11 mmol/L Normal 9-18 [facility] Comment on above: Order Comment: Speci men Type: BLOOD SPECIMENOrdering Facility: [facility] Address: [address] [place] [address] Performed By: #### 2 4321-2, , 1751-02, 2776- ####[facility] LABORATORYCLIA [id number] [place] [id number] [place] Calcium [Mass/Vol] 8.1 mg/dL Low 8.5-10.[address] [facility] Comment on above: Order Comment: Speci men Type: BLOOD SPECIMENOrdering Facility: [facility] Address: [address] [place] [address] Performed By: #### 2 4321-2, 73506-7, 1751-02, 2776-08 ####[facility] LABORATORYCLIA [id number] [place] [id number] [place] Chloride [Moles/Vol] 106 mmol/L High 97-105 [facility] Comment on above: Order Comment: Speci men Type: BLOOD SPECIMENOrdering Facility: [facility] Address: [address] [place] [address] Performed By: #### 2 4321-2, 77027-2, 1751-02, 2776-1 ####[facility] LABORATORYCLIA [id number] [place] [address] [place] CO2 [Moles/Vol] 17 mmol/L Low 22-30 [facility] Comment on above: Order Comment: Speci men Type: BLOOD SPECIMENOrdering Facility: [facility] Address: [address] [place] [address] Performed By: #### 2 4321-2, , 1751-02, 2776-08 ####MARIA STEIN LABORATORYCLIA [id number] [place] [id number] [place] Creatinine [Mass/Vol] 1.39 mg/dL High 0.73-1.22 [facility] Comment on above: Order Comment: Speci men Type: BLOOD SPECIMENOrdering Facility: [facility] Address: [address] [place] [address] Performed By: #### 2 4321-2, , 1751-02, 2776-08 ####MARIA STEIN LABORATORYCLIA [id number] [place] [address] [place] Creatinine and Glomerular filtration rate.predicted panel (S/P/Bld) 55 mL/min/1.73m??? Low >=60 [facility] Comment on above: Order Comment: Speci [facility] Type: BLOOD SPECIMENOrdering Facility: [facility] Address: [address] [place] [address] Result Comment: Bailey mated Glomerular Filtration Rate [...] actual GFR. Performed By: #### 2 4321-2, 18301-9, 1751-02, 2776-08 ####MARIA STEIN LABORATORYCLIA [id number] [place] [id number] [place] Glucose [Mass/Vol] 107 mg/dL High 74-[address] [facility] Comment on above: Order Comment: Speci [facility] Type: BLOOD SPECIMENOrdering Facility: [facility] Address: [address] [place] [address] Result Comment: The [place] [employer] (ADA) provides guidance for cutoff [...] Standards of Medical Care in Diabetes 2016, [place] [employer]. Diabetes Care. 2016.39(Suppl 1). Performed By: #### 2 4321-2, , 1751-02, 2776-08 ####[facility] LABORATORYCLIA [id number] [place] [address] [place] Potassium [Moles/Vol] 3.6 mmol/L Low 3.7-5.1 [facility] Comment on above: Order Comment: Speci men Type: BLOOD SPECIMENOrdering Facility: [facility] Address: [address] [place] [id number] Performed By: #### 2 4321-2, , 1751-02, 2776-08 ####MARIA STEIN LABORATORYCLIA [id number] [place] [id number] [place] Sodium [Moles/Vol] 134 mmol/L Low 136-[address] [facility] Comment on above: Order Comment: Speci men Type: BLOOD SPECIMENOrdering Facility: [facility] Address: [address] [place] [address] Performed By: #### 2 4321-2, , 1751-02, 2776-08 ####MARIA STEIN LABORATORYCLIA [id number] [place] [id number] [place] Urea nitrogen [Mass/Vol] 46 mg/dL High 9-24 [facility] Comment on above: Order Comment: Speci men Type: BLOOD SPECIMENOrdering Facility: [facility] Address: [address] [place] [address] Performed By: #### 2 4321-2, , 1751-02, 7-1 ####[facility] LABORATORYCLIA [id number] [place] [id number] [place] CBC panel Auto (Bld)on 08-30 Erythrocyte distribution width (RBC) [Ratio] 12.4 % Normal 11.5-15.0 [facility] Comment on above: Order Comment: Speci men Type: BLOOD SPECIMENOrdering Facility: [facility] Address: [address] [place] [address] Performed By: #### 5 8410-2 ####[facility] LABORATORYCLIA [id number] [address] [place] Hematocrit (Bld) [Volume fraction] 32.1 % Low 39.0-51.0 [facility] Comment on above: Order Comment: Speci men Type: BLOOD SPECIMENOrdering Facility: [facility] Address: [address] [place] [address] Performed By: #### 5 8410-2 ####[facility] LABORATORYCLIA [id number] [address] [place] Hemoglobin (Bld) [Mass/Vol] 11.0 g/dL Low 13.0-17.0 [facility] Comment on above: Order Comment: Speci men Type: BLOOD SPECIMENOrdering Facility: [facility] Address: [address] [place] [address] Performed By: #### 5 8410-2 ####GEOVANNA LABORATORYCLIA [id number] [place] [id number] [place] MCH (RBC) [Entitic mass] 29.3 pg Normal 26.0-34.0 [facility] Comment on above: Order Comment: Speci men Type: BLOOD SPECIMENOrdering Facility: [facility] Address: [address] [place] [address] Performed By: #### 5 8410-2 ####[facility] LABORATORYCLIA [id number] [address] [place] MCHC (RBC) [Mass/Vol] 34.3 g/dL Normal 30.5-36.0 [facility] Comment on above: Order Comment: Speci men Type: BLOOD SPECIMENOrdering Facility: [facility] Address: [address] [place] [address] Performed By: #### 5 8410-2 ####[facility] LABORATORYCLIA [id number] [place] [id number] [place] MCV (RBC) [Entitic vol] 85.6 fL Normal 80.0-100.0 [facility] Comment on above: Order Comment: Speci men Type: BLOOD SPECIMENOrdering Facility: [facility] Address: [address] [place] [address] Performed By: #### 5 8410-2 ####[facility] LABORATORYCLIA [id number] [place] [address] [place] Nucleated RBC (Bld) [#/Vol] 10*3/uL Normal <0.01 [facility] Comment on above: Order Comment: Speci men Type: BLOOD SPECIMENOrdering Facility: [facility] Address: [address] [place] [address] Performed By: #### 5 8410-2 ####[facility] LABORATORYCLIA [id number] [place] [address] [place] Platelet mean volume (Bld) [Entitic vol] 10.6 fL Normal 9.0-12.7 [facility] Comment on above: Order Comment: Speci men Type: BLOOD SPECIMENOrdering Facility: [facility] Address: [address] [place] [address] Performed By: #### 5 8410-2 ####[facility] LABORATORYCLIA [id number] [place] [id number] [place] Platelets (Bld) [#/Vol] 306 10*3/uL Normal 150-400 [facility] Comment on above: Order Comment: Speci men Type: BLOOD SPECIMENOrdering Facility: [facility] Address: [address] [place] [address] Performed By: #### 5 8410-2 ####[facility] LABORATORYCLIA [id number] [place] [id number] [place] RBC (Bld) [#/Vol] 3.75 10*6/uL Low 4.20-6.00 [facility] Comment on above: Order Comment: Speci men Type: BLOOD SPECIMENOrdering Facility: [facility] Address: [place] [address] Performed By: #### 5 8410-2 ####MARIA STEIN LABORATORYCLIA [id number] [place] [id number] [place] WBC (Bld) [#/Vol] 6.84 10*3/uL Normal 3.70-11.00 [facility] Comment on above: Order Comment: Speci men Type: BLOOD SPECIMENOrdering Facility: [facility] Address: [place] [address] Performed By: #### 5 8410-2 ####MARIA STEIN LABORATORYCLIA [id number] [place] [id number] [place] CONS[facility] Lactate (Bld) [Moles/Vol]on 08-30-2023 Lactate [Moles/Vol] 0.6 mmol/L Normal 0.5-2.2 [facility] Comment on above: Order Comment: Speci men Type: BLOOD SPECIMENOrdering Facility: [facility] Address: [place] [address] Performed By: #### 3 2693-4 ####MARIA STEIN LABORATORYCLIA [id number] [place] [id number] [place] Magnesium SerPl-mCncon 08-30 Magnesium [Mass/Vol] 2.0 mg/dL Normal 1.7-2.3 [facility] Comment on above: Order Comment: Speci men Type: BLOOD SPECIMENOrdering Facility: [facility] Address: [place] [address] Performed By: #### 2 4321-2, 19813-6, 1751-7, 2777-1 ####MARIA STEIN LABORATORYCLIA [id number] [place] [id number] [place] NURSING PROGon 08-30-2023 NURSING PROG Normal [facility] NUTRITIONon 08-30-2023 NUTRITION Normal [facility] Phosphate SerPl-mCncon 08-30 Phosphate [Mass/Vol] 3.1 mg/dL Normal 2.7-4.8 [facility] Comment on above: Order Comment: Speci men Type: BLOOD SPECIMENOrdering Facility: [facility] Address: [address] [place] [address] Performed By: #### 2 4321-2, 63289-4, 1751-7, 277- ####MARIA STEIN LABORATORYCLIA [id number] [place] [address] [place] Basic metabolic 2000 panelon 08-29-2023 Anion gap [Moles/Vol] 18 mmol/L Normal 9-18 [facility] Comment on above: Order Comment: Speci men Type: BLOOD SPECIMENOrdering Facility: [facility] Address: [address] [place] [address] Performed By: #### 2 4321-2, 2777-1, 45728-7, ####MARIA STEIN LABORATORYCLIA [id number] [place] [address] [place] Calcium [Mass/Vol] 9.0 mg/dL Normal 8.5-10.[address] [facility] Comment on above: Order Comment: Speci men Type: BLOOD SPECIMENOrdering Facility: [facility] Address: [address] [place] [address] Performed By: #### 2 4321-2, 2777-1, 75357-2, ####MARIA STEIN LABORATORYCLIA [id number] [place] [address] [place] Chloride [Moles/Vol] 107 mmol/L High 97-105 [facility] Comment on above: Order Comment: Speci men Type: BLOOD SPECIMENOrdering Facility: [facility] Address: [address] [place] [address] Performed By: #### 2 4321-2, 2777-1, 05865-4, 43209-0 ####MARIA STEIN LABORATORYCLIA [id number] [place] [address] [place] CO2 [Moles/Vol] 8 mmol/L Low 22-30 [facility] Comment on above: Order Comment: Speci men Type: BLOOD SPECIMENOrdering Facility: [facility] Address: [place] [address] Performed By: #### 2 4321-2, 2777-1, 95603-4, ####MARIA STEIN LABORATORYCLIA [id number] [place] [id number] [place] Creatinine [Mass/Vol] 1.98 mg/dL High 0.73-1.22 [facility] Comment on above: Order Comment: Speci men Type: BLOOD SPECIMENOrdering Facility: [facility] Address: [place] [address] Performed By: #### 2 4321-2, 2777-1, 76559-4, ####MARIA STEIN LABORATORYCLIA [id number] [place] [id number] [place] Creatinine and Glomerular filtration rate.predicted panel (S/P/Bld) 36 mL/min/1.73m??? Low >=60 [facility] Comment on above: Order Comment: Speci men Type: BLOOD SPECIMENOrdering Facility: [facility] Address: [place] [address] Result Comment: Bailey mated Glomerular Filtration Rate [...] GFR. Performed By: #### 2 4321-2, 2777-1, 44750-3, ####MARIA STEIN LABORATORYCLIA [id number] [place] [id number] [place] Glucose [Mass/Vol] 134 mg/dL High 74-[address] [facility] Comment on above: Order Comment: Speci men Type: BLOOD SPECIMENOrdering Facility: [facility] Address: [address], [place] [address] Result Comment: The [place] [employer] (ADA) provides guidance for cutoff [...] Standards of Medical Care in Diabetes 2016, [place] [employer]. Diabetes Care. 2016.39(Suppl 1). Performed By: #### 2 4321-2, 2777-1, 38995-5, ####[facility] LABORATORYCLIA [id number] [place] [address] [place] Potassium [Moles/Vol] 4.9 mmol/L Normal 3.7-5.1 [facility] Comment on above: Order Comment: Speci men Type: BLOOD SPECIMENOrdering Facility: [facility] Address: [address] [place] [address] Performed By: #### 2 4321-2, 2777-1, 66198-8, ####[facility] LABORATORYCLIA [id number] [place] [id number] [place] Sodium [Moles/Vol] 133 mmol/L Low 136-[address] [facility] Comment on above: Order Comment: Speci men Type: BLOOD SPECIMENOrdering Facility: [facility] Address: [address] [place] [address] Performed By: #### 2 4321-2, 2777-1, 13893-0, ####[facility] LABORATORYCLIA [id number] [place] [id number] [place] Urea nitrogen [Mass/Vol] 68 mg/dL High 9-24 [facility] Comment on above: Order Comment: Speci men Type: BLOOD SPECIMENOrdering Facility: [facility] Address: [address] [place] [address] Performed By: #### 2 4321-2, 2777-1, 42916-3, 65057-7 ####[facility] LABORATORYCLIA [id number] [address] CBC panel Auto (Bld)on 08-29 Erythrocyte distribution width (RBC) [Ratio] 12.2 % Normal 11.5-15.0 [facility] Comment on above: Order Comment: Speci men Type: BLOOD SPECIMENOrdering Facility: [facility] Address: [address] [place] [address] Performed By: #### 5 8410-2 ####[facility] LABORATORYCLIA [id number] [address] Hematocrit (Bld) [Volume fraction] 37.9 % Low 39.0-51.0 [facility] Comment on above: Order Comment: Speci men Type: BLOOD SPECIMENOrdering Facility: [facility] Address: [address] [place] [address] Performed By: #### 5 8410-2 ####[facility] LABORATORYCLIA [id number] [address] Hemoglobin (Bld) [Mass/Vol] 12.9 g/dL Low 13.0-17.0 [facility] Comment on above: Order Comment: Speci men Type: BLOOD SPECIMENOrdering Facility: [facility] Address: [address] [place] [address] Performed By: #### 5 8410-2 ####GEOVANNA LABORATORYCLIA [id number] [place] [id number] [facility] MCH (RBC) [Entitic mass] 29.7 pg Normal 26.0-34.0 [facility] Comment on above: Order Comment: Speci men Type: BLOOD SPECIMENOrdering Facility: [facility] Address: [address] [place] [address] Performed By: #### 5 8410-2 ####[facility] LABORATORYCLIA [id number] [address] [place] MCHC (RBC) [Mass/Vol] 34.0 g/dL Normal 30.5-36.0 [facility] Comment on above: Order Comment: Speci men Type: BLOOD SPECIMENOrdering Facility: [facility] Address: [address] [place] [address] Performed By: #### 5 8410-2 ####[facility] LABORATORYCLIA [id number] [place] [address] [place] MCV (RBC) [Entitic vol] 87.3 fL Normal 80.0-100.0 [facility] Comment on above: Order Comment: Speci men Type: BLOOD SPECIMENOrdering Facility: [facility] Address: [address] [place] [address] Performed By: #### 5 8410-2 ####[facility] LABORATORYCLIA [id number] [place] [address] [place] Nucleated RBC (Bld) [#/Vol] 10*3/uL Normal <0.01 [facility] Comment on above: Order Comment: Speci men Type: BLOOD SPECIMENOrdering Facility: [facility] Address: [address] [place] [address] Performed By: #### 5 8410-2 ####[facility] LABORATORYCLIA [id number] [place] [address] [place] Platelet mean volume (Bld) [Entitic vol] 10.5 fL Normal 9.0-12.7 [facility] Comment on above: Order Comment: Speci men Type: BLOOD SPECIMENOrdering Facility: [facility] Address: [address] [place] [address] Performed By: #### 5 8410-2 ####[facility] LABORATORYCLIA [id number] [place] [address] [place] Platelets (Bld) [#/Vol] 356 10*3/uL Normal 150-400 [facility] Comment on above: Order Comment: Speci men Type: BLOOD SPECIMENOrdering Facility: [facility] Address: [address] [place] [address] Performed By: #### 5 8410-2 ####[facility] LABORATORYCLIA [id number] [address] [place] RBC (Bld) [#/Vol] 4.34 10*6/uL Normal 4.20-6.00 [facility] Comment on above: Order Comment: Speci men Type: BLOOD SPECIMENOrdering Facility: [facility] Address: [place] [address] Performed By: #### 5 8410-2 ####[facility] LABORATORYCLIA [id number] [place] [address] [place] WBC (Bld) [#/Vol] 6.11 10*3/uL Normal 3.70-11.00 [facility] Comment on above: Order Comment: Speci men Type: BLOOD SPECIMENOrdering Facility: [facility] Address: [address] [place] [address] Performed By: #### 5 8410-2 ####MARIA STEIN LABORATORYCLIA [id number] [address] [place] [facility] HIGH SENSITIVITY TROPONIN T (THIRD) 3 HRS AFTER INITIALon 08-29-2023 Troponin T.cardiac High sensitivity method [Mass/Vol] 32 ng/L High <12 [facility] Comment on above: Order Comment: Speci men Type: BLOOD SPECIMENOrdering Facility: [facility] Address: [address] [place] [address] Result Comment: When assessing risk for acute [...] 30 day MACE. Performed By: #### L [id number] ####[facility] LABORATORYCLIA [id number] [place] [id number] [facility] [place] Iron and Iron binding capaci ty panelon 08-29-2023 Iron [Mass/Vol] 170 ug/dL Normal 41-186 [facility] Comment on above: Order Comment: Speci men Type: BLOOD SPECIMENOrdering Facility: [facility] Address: [address] [place] [address] Performed By: #### 2 4321-2, 2777-1, 04298-3, 40407-4 ####MAR[facility] STEIN LABORATORYCLIA [id number] [place] [address] [place] Iron binding capacity [Mass/Vol] 331 ug/dL Normal 232-386 [facility] Comment on above: Order Comment: Speci men Type: BLOOD SPECIMENOrdering Facility: [facility] Address: [address] [place] [address] Performed By: #### 2 4321-2, 2777-1, 60596-3, ####MARIA STEIN LABORATORYCLIA [id number] [place] [address] [place] Iron/TIBC [Molar ratio] 51.4 % Normal 20.0-55.0 [facility] Comment on above: Order Comment: Speci men Type: BLOOD SPECIMENOrdering Facility: [facility] Address: [address] [place] [address] Performed By: #### 2 4321-2, 2777-1, 77585-1, ####MARIA STEIN LABORATORYCLIA [id number] [place] [id number] [place] [place] Lactate (Bld) [Moles/Vol]on 08-29-2023 Lactate [Moles/Vol] 1.1 mmol/L Normal 0.5-2.2 [facility] Comment on above: Order Comment: Speci men Type: BLOOD SPECIMENOrdering Facility: [facility] Address: [address] [place] [address] Performed By: #### 3 2693-4 ####[facility] LABORATORYCLIA [id number] [place] [address] [place] Magnesium SerPl-mCncon 08-29 Magnesium [Mass/Vol] 2.6 mg/dL High 1.7-2.3 [facility] Comment on above: Order Comment: Speci men Type: BLOOD SPECIMENOrdering Facility: [facility] Address: [address] [place] [address] Performed By: #### 2 4321-2, 2777-1, 20608-3, ####[facility] STE[facility] LABORATORYCLIA [id number] [place] [address] [place] NURSING PROGon 08-29-2023 NURSING PROG Normal [facility] NUTRITIONon 08-29-2023 NUTRITION Normal [facility] NUTRITION Normal [facility] PT EDon 08-29-2023 PT ED Normal [facility] Phosphate SerPl-mCncon 08-29 Phosphate [Mass/Vol] 4.7 mg/dL Normal 2.7-4.8 [facility] Comment on above: Order Comment: Speci men Type: BLOOD SPECIMENOrdering Facility: [facility] Address: [address] [place] [address] Performed By: #### 2 4321-2, 2777-1, 70589-3, ####[facility] STE[facility] LABORATORYCLIA [id number] [place] [id number] [place] Prealb SerPl-mCncon 08-29-19 24 Prealbumin [Mass/Vol] 26 mg/dL Normal 17-36 [facility] Comment on above: Order Comment: Speci men Type: BLOOD SPECIMENOrdering Facility: [facility] Address: [address] [place] [address] Performed By: #### 1 4338-8, 3033-6 ####[facility] LABCLIA [id number] [place] [id number] [place] Transferrin SerPl-mCncon Transferrin [Mass/Vol] 271 mg/dL Normal 200-360 [facility] Comment on above: Order Comment: Speci men Type: BLOOD SPECIMENOrdering Facility: [facility] Address: [address] [place] [address] Performed By: #### 1 4338-8, 3033-6 ####[facility] LABCLIA [id number] [place] [id number] [place] Urinalysis complete panel (U )on 08-29-2023 Bacteria LM.HPF (Urine sed) [#/Area] Rare Abnormal None Seen [facility] Comment on above: Order Comment: Speci men Type: URINE SPECIMENOrdering Facility: [facility] Address: [address] [place] [address] Performed By: #### 2 4356-8 ####[facility] LABORATORYCLIA [id number] [place] [address] [place] Bilirubin Ql (U) Negative Normal Negative [facility] Comment on above: Order Comment: Speci men Type: URINE SPECIMENOrdering Facility: [facility] Address: [address] [place] [address] Performed By: #### 2 4356-8 ####[facility] LABORATORYCLIA [id number] [place] [address] [place] Clarity (Unsp spec) Clear Normal Clear [facility] Comment on above: Order Comment: Speci men Type: URINE SPECIMENOrdering Facility: [facility] Address: [address] [place] [address] Performed By: #### 2 4356-8 ####[facility] LABORATORYCLIA [id number] [place] [address] [place] Color (U) Light Yellow Normal Yellow [facility] Comment on above: Order Comment: Speci men Type: URINE SPECIMENOrdering Facility: [facility] Address: [address] [place] [address] Performed By: #### 2 4356-8 ####[facility] LABORATORYCLIA [id number] [place] [address] [place] Glucose Test strip (U) [Mass/Vol] Negative Normal Trace, Negative [facility] Comment on above: Order Comment: Speci men Type: URINE SPECIMENOrdering Facility: [facility] Address: [address] [place] [address] Performed By: #### 2 4356-8 ####[facility] LABORATORYCLIA [id number] [place] [address] [place] Hemoglobin Ql (U) Negative Normal Negative, Trace [facility] Comment on above: Order Comment: Speci men Type: URINE SPECIMENOrdering Facility: [facility] Address: [address] [place] [address] Performed By: #### 2 4356-8 ####[facility] LABORATORYCLIA [id number] [place] [address] [place] Ketones Ql (U) Negative Normal Negative, Trace [facility] Comment on above: Order Comment: Speci men Type: URINE SPECIMENOrdering Facility: [facility] Address: [address] [place] [address] Performed By: #### 2 4356-8 ####[facility] LABORATORYCLIA [id number] [place] [address] [place] Leukocyte esterase Test strip Ql (U) Negative Normal Negative, 25 Angle/uL [facility] Comment on above: Order Comment: Speci men Type: URINE SPECIMENOrdering Facility: [facility] Address: [address] [place] [address] Performed By: #### 2 4356-8 ####[facility] LABORATORYCLIA [id number] [place] [address] [place] Nitrite Ql (U) Negative Normal Negative [facility] Comment on above: Order Comment: Speci men Type: URINE SPECIMENOrdering Facility: [facility] Address: [address] [place] [address] Performed By: #### 2 4356-8 ####[facility] LABORATORYCLIA [id number] [place] [address] [place] pH (U) 5.0 [pH] Normal 5.0-8.0 [facility] Comment on above: Order Comment: Speci men Type: URINE SPECIMENOrdering Facility: [facility] Address: [address] [place] [address] Performed By: #### 2 4356-8 ####[facility] LABORATORYCLIA [id number] [place] [address] [place] Protein (U) [Mass/Vol] Trace Normal Trace, Negative [facility] Comment on above: Order Comment: Speci men Type: URINE SPECIMENOrdering Facility: [facility] Address: [address] [place] [address] Performed By: #### 2 4356-8 ####[facility] LABORATORYCLIA [id number] [place] [address] [place] RBC LM.HPF (Urine sed) [#/Area] 0-3 /HPF Normal 0-3 /HPF [facility] Comment on above: Order Comment: Speci men Type: URINE SPECIMENOrdering Facility: [facility] Address: [address] [place] [address] Performed By: #### 2 4356-8 ####[facility] LABORATORYCLIA [id number] [place] [address] [place] Specific gravity (U) [Rel density] 1.013 Normal 1.005-1.03 0 [facility] Comment on above: Order Comment: Speci men Type: URINE SPECIMENOrdering Facility: [facility] Address: [address] [place] [address] Performed By: #### 2 4356-8 ####[facility] STE[facility] LABORATORYCLIA [id number] [place] [address] [place] URIC ACID CRYSTALS (UA) Moderate Abnormal None Seen [facility] Comment on above: Order Comment: Speci men Type: URINE SPECIMENOrdering Facility: [facility] Address: [address] [place] [address] Performed By: #### 2 4356-8 ####[facility] LABORATORYCLIA [id number] [place] [address] [place] Urobilinogen Ql (U) Negative Normal Negative [facility] Comment on above: Order Comment: Speci men Type: URINE SPECIMENOrdering Facility: [facility] Address: [address] [place] [address] Performed By: #### 2 4356-8 ####[facility] LABORATORYCLIA [id number] [place] [address] [place] WBC LM.HPF (Urine sed) [#/Area] 0-5 /HPF Normal 0-5 /HPF [facility] Comment on above: Order Comment: Speci men Type: URINE SPECIMENOrdering Facility: [facility] Address: [address] [place] [address] Performed By: #### 2 4356-8 ####[facility] LABORATORYCLIA [id number] [place] [id number] [place] ALLIED HEALTHon 08-28-2023 ALLIED HEALTH Normal [facility] ALLIED HEALTH Normal [facility] Bacteria Bld Culton 08-28-19 24 Bacteria identified Cx Nom (Bld) CULTURE, BLOOD: No growth 5 days Normal [facility] Comment on above: Performed By: #### 6 00-7 ####[facility] LABCLIA [id number] [facility] [place] [address] [place] CASE MGT INIT ASSESon 2023 [facility] CBC W Auto Differential pane l (Bld)on 08-28-2023 Basophils (Bld) [#/Vol] 0.03 10*3/uL Normal <0.11 [facility] Comment on above: Order Comment: Speci men Type: BLOOD SPECIMENOrdering Facility: [facility] Address: [address] [place] [address] Performed By: #### 5 7021-8 ####[facility] LABORATORYCLIA [id number] [place] [address] [place] Basophils/100 WBC (Bld) 0.3 % Normal [facility] Comment on above: Order Comment: Speci men Type: BLOOD SPECIMENOrdering Facility: [facility] Address: [address] [place] [address] Performed By: #### 5 7021-8 ####[facility] LABORATORYCLIA [id number] [place] [address] [place] Differential cell count method Nom (Bld) Auto Normal [facility] Comment on above: Order Comment: Speci men Type: BLOOD SPECIMENOrdering Facility: [facility] Address: [address] [place] [address] Performed By: #### 5 7021-8 ####[facility] LABORATORYCLIA [id number] [place] [address] [place] Eosinophils (Bld) [#/Vol] 0.06 10*3/uL Normal <0.46 [facility] Comment on above: Order Comment: Speci men Type: BLOOD SPECIMENOrdering Facility: [facility] Address: [address] [place] [address] Performed By: #### 5 7021-8 ####[facility] LABORATORYCLIA [id number] [place] [id number] [place] Eosinophils/100 WBC (Bld) 0.6 % Normal [facility] Comment on above: Order Comment: Speci men Type: BLOOD SPECIMENOrdering Facility: [facility] Address: [address] [place] [address] Performed By: #### 5 7021-8 ####[facility] LABORATORYCLIA [id number] [place] [address] [place] Erythrocyte distribution width (RBC) [Ratio] 12.3 % Normal 11.5-15.0 [facility] Comment on above: Order Comment: Speci men Type: BLOOD SPECIMENOrdering Facility: [facility] Address: [address] [place] [address] Performed By: #### 5 7021-8 ####[facility] LABORATORYCLIA [id number] [place] [address] [place] Hematocrit (Bld) [Volume fraction] 42.0 % Normal 39.0-51.0 [facility] Comment on above: Order Comment: Speci men Type: BLOOD SPECIMENOrdering Facility: [facility] Address: [address] [place] [address] Performed By: #### 5 7021-8 ####[facility] LABORATORYCLIA [id number] [place] [id number] [place] Hemoglobin (Bld) [Mass/Vol] 14.3 g/dL Normal 13.0-17.0 [facility] Comment on above: Order Comment: Speci men Type: BLOOD SPECIMENOrdering Facility: [facility] Address: [address] [place] [address] Performed By: #### 5 7021-8 ####[facility] LABORATORYCLIA [id number] [place] [address] [place] Immature granulocytes (Bld) [#/Vol] 0.16 10*3/uL High <0.10 [facility] Comment on above: Order Comment: Speci men Type: BLOOD SPECIMENOrdering Facility: [facility] Address: [address] [place] [address] Performed By: #### 5 7021-8 ####[facility] LABORATORYCLIA [id number] [address] [place] Immature granulocytes/100 WBC (Bld) 1.6 % Normal [facility] Comment on above: Order Comment: Speci men Type: BLOOD SPECIMENOrdering Facility: [facility] Address: [address] [place] [address] Performed By: #### 5 7021-8 ####[facility] LABORATORYCLIA [id number] [place] [address] [place] Lymphocytes (Bld) [#/Vol] 1.27 10*3/uL Normal 1.00-4.00 [facility] Comment on above: Order Comment: Speci men Type: BLOOD SPECIMENOrdering Facility: [facility] Address: [address] [place] [address] Performed By: #### 5 7021-8 ####[facility] LABORATORYCLIA [id number] [address] [place] Lymphocytes/100 WBC (Bld) 12.7 % Normal [facility] Comment on above: Order Comment: Speci men Type: BLOOD SPECIMENOrdering Facility: [facility] Address: [address] [place] [address] Performed By: #### 5 7021-8 ####[facility] LABORATORYCLIA [id number] [place] [address] [place] MCH (RBC) [Entitic mass] 29.5 pg Normal 26.0-34.0 [facility] Comment on above: Order Comment: Speci men Type: BLOOD SPECIMENOrdering Facility: [facility] Address: [address] [place] [address] Performed By: #### 5 7021-8 ####[facility] LABORATORYCLIA [id number] [address] [place] MCHC (RBC) [Mass/Vol] 34.0 g/dL Normal 30.5-36.0 [facility] Comment on above: Order Comment: Speci men Type: BLOOD SPECIMENOrdering Facility: [facility] Address: [address] [place] [address] Performed By: #### 5 7021-8 ####[facility] LABORATORYCLIA [id number] [place] [id number] [place] MCV (RBC) [Entitic vol] 86.8 fL Normal 80.0-100.0 [facility] Comment on above: Order Comment: Speci men Type: BLOOD SPECIMENOrdering Facility: [facility] Address: [address] [place] [address] Performed By: #### 5 7021-8 ####[facility] LABORATORYCLIA [id number] [place] [address] [place] Monocytes (Bld) [#/Vol] 0.52 10*3/uL Normal <0.87 [facility] Comment on above: Order Comment: Speci men Type: BLOOD SPECIMENOrdering Facility: [facility] Address: [address] [place] [address] Performed By: #### 5 7021-8 ####[facility] LABORATORYCLIA [id number] [place] [address] [place] Monocytes/100 WBC (Bld) 5.2 % Normal [facility] Comment on above: Order Comment: Speci men Type: BLOOD SPECIMENOrdering Facility: [facility] Address: [address] [place] [address] Performed By: #### 5 7021-8 ####[facility] LABORATORYCLIA [id number] [place] [id number] [place] Neutrophils (Bld) [#/Vol] 7.97 10*3/uL High 1.45-7.50 [facility] Comment on above: Order Comment: Speci men Type: BLOOD SPECIMENOrdering Facility: [facility] Address: [address] [place] [address] Performed By: #### 5 7021-8 ####[facility] LABORATORYCLIA [id number] [place] [id number] [place] Neutrophils/100 WBC (Bld) 79.6 % Normal [facility] Comment on above: Order Comment: Speci men Type: BLOOD SPECIMENOrdering Facility: [facility] Address: [address] [place] [address] Performed By: #### 5 7021-8 ####[facility] LABORATORYCLIA [id number] [place] [address] [place] Nucleated RBC (Bld) [#/Vol] 10*3/uL Normal <0.01 [facility] Comment on above: Order Comment: Speci men Type: BLOOD SPECIMENOrdering Facility: [facility] Address: [address] [place] [address] Performed By: #### 5 7021-8 ####[facility] LABORATORYCLIA [id number] [place] [address] [place] Nucleated RBC/100 WBC (Bld) [Ratio] 0.0 /100 WBC Normal [facility] Comment on above: Order Comment: Speci men Type: BLOOD SPECIMENOrdering Facility: [facility] Address: [address] [place] [address] Performed By: #### 5 7021-8 ####[facility] LABORATORYCLIA [id number] [place] [address] [place] Platelet mean volume (Bld) [Entitic vol] 10.4 fL Normal 9.0-12.7 [facility] Comment on above: Order Comment: Speci men Type: BLOOD SPECIMENOrdering Facility: [facility] Address: [address] [place] [address] Performed By: #### 5 7021-8 ####[facility] LABORATORYCLIA [id number] [place] [address] [place] Platelets (Bld) [#/Vol] 529 10*3/uL High 150-400 [facility] Comment on above: Order Comment: Speci men Type: BLOOD SPECIMENOrdering Facility: [facility] Address: [address] [place] [address] Performed By: #### 5 7021-8 ####[facility] LABORATORYCLIA [id number] [place] [address] [place] RBC (Bld) [#/Vol] 4.84 10*6/uL Normal 4.20-6.00 [facility] Comment on above: Order Comment: Speci men Type: BLOOD SPECIMENOrdering Facility: [facility] Address: [address] [place] [address] Performed By: #### 5 7021-8 ####[facility] LABORATORYCLIA [id number] [place] [address] [place] WBC (Bld) [#/Vol] 10.01 10*3/uL Normal 3.70-11.00 [facility] Comment on above: Order Comment: Speci men Type: BLOOD SPECIMENOrdering Facility: [facility] Address: [address] [place] [address] Performed By: #### 5 7021-8 ####[facility] LABORATORYCLIA [id number] [address] [facility] CNOVon 08-28-2023 CNOV Office Visit (GENNOM ) -- AISHA JULIEN ([id number]) 1955 M Date Time Provider Department 08/28/23 10:15 AM [facility] During your visit today, [...] (more content not included)... Normal [facility] CONSULTon 08-28-2023 CONSULT Normal [facility] CT ABD/PEL WO IVCONon 2023 CT ABD/PEL WO IVCON Normal [facility] CT BRAIN WO IVCONon 08-28-19 CT BRAIN WO IVCON Normal [facility] metabolic 2000 panelon 08-28-2023 Albumin [Mass/Vol] 4.1 g/dL Normal 3.9-4.[address] [facility] Comment on above: Order Comment: Speci men Type: BLOOD SPECIMENOrdering Facility: [facility] Address: [address] [place] [address] [place] [address] Performed By: #### 2 4323-8, [id number], 24984-9, 61817-7, 3040-3 ####[facility] LABORATORYCLIA [id number] [place] [id number] [place] ALP [Catalytic activity/Vol] 284 U/L High 38-113 [facility] Comment on above: Order Comment: Speci men Type: BLOOD SPECIMENOrdering Facility: [facility] Address: [address] [place] [address] Performed By: #### 2 4323-8, [id number], 89570-3, 65762-2, 3040-3 ####[facility] LABORATORYCLIA [id number] [place] [id number] [place] ALT [Catalytic activity/Vol] 65 U/L High 10-54 [facility] Comment on above: Order Comment: Speci men Type: BLOOD SPECIMENOrdering Facility: [facility] Address: [address] [place] [address] Performed By: #### 2 4323-8, [id number], 75084-3, 60446-7, 3040-3 ####[facility] LABORATORYCLIA [id number] [place] [id number] [place] Anion gap [Moles/Vol] 18 mmol/L Normal 9-18 [facility] Comment on above: Order Comment: Speci men Type: BLOOD SPECIMENOrdering Facility: [facility] Address: [address] [place] [address] Performed By: #### 2 4323-8, [id number], 44953-3, 02150-3, 3040-3 ####[facility] LABORATORYCLIA [id number] [place] [id number] [place] AST [Catalytic activity/Vol] 33 U/L Normal 14-40 [facility] Comment on above: Order Comment: Speci men Type: BLOOD SPECIMENOrdering Facility: [facility] Address: [address] [address] Performed By: #### 2 4323-8, [id number], 02017-6, 83771-6, 3040-3 ####[facility] LABORATORYCLIA [id number] [place] [address] [place] Bilirubin [Mass/Vol] 0.7 mg/dL Normal 0.2-1.3 [facility] Comment on above: Order Comment: Speci men Type: BLOOD SPECIMENOrdering Facility: [facility] Address: [address] [place] [address] Performed By: #### 2 4323-8, [id number], 74923-8, 88058-8, 3040-3 ####[facility] LABORATORYCLIA [id number] [place] [id number] [place] Calcium [Mass/Vol] 9.5 mg/dL Normal 8.5-10.[address] [facility] Comment on above: Order Comment: Speci men Type: BLOOD SPECIMENOrdering Facility: [facility] Address: [address] [place] [address] Performed By: #### 2 4323-8, [id number], , 54907-6, 3040-3 ####[facility] LABORATORYCLIA [id number] [place] [id number] [place] Chloride [Moles/Vol] 96 mmol/L Low 97-105 [facility] Comment on above: Order Comment: Speci men Type: BLOOD SPECIMENOrdering Facility: [facility] Address: [address] [place] [address] Performed By: #### 2 4323-8, [id number], 51250-3, 20970-3, 3040-3 ####[facility] LABORATORYCLIA [id number] [place] [address] [place] CO2 [Moles/Vol] 12 mmol/L Low 22-30 [facility] Comment on above: Order Comment: Speci men Type: BLOOD SPECIMENOrdering Facility: [facility] Address: [address] [place] [address] Performed By: #### 2 4323-8, HYV5334, 17321-9, 11350-8, 3040-3 ####[facility] LABORATORYCLIA [id number] [place] [id number] [place] Creatinine [Mass/Vol] 2.53 mg/dL High 0.73-1.22 [facility] Comment on above: Order Comment: Arben suarez Type: BLOOD SPECIMENOrdering Facility: [facility] Address: [address] [place] [address] Performed By: #### 2 4323-8, [id number], 55846-7, 92969-8, 3040-3 ####[facility] LABORATORYCLIA [id number] [place] [id number] [place] Creatinine and Glomerular filtration rate.predicted panel (S/P/Bld) 27 mL/min/1.73m??? Low >=60 [facility] Comment on above: Order Comment: Arben suarez Type: BLOOD SPECIMENOrdering Facility: [facility] Address: [address] [place] [address] Result Comment: Bailey mated Glomerular Filtration Rate [...] actual GFR. Performed By: #### 2 4323-8, [id number], 86898-0, 58215-0, 3040-3 ####[facility] LABORATORYCLIA [id number] [place] [id number] [place] Glucose [Mass/Vol] 138 mg/dL High 74-[address] [facility] Comment on above: Order Comment: Arben suarez Type: BLOOD SPECIMENOrdering Facility: [facility] Address: [address] [place] [address] Result Comment: The [place] [employer] (ADA) provides guidance for cutoff [...] Standards of Medical Care in Diabetes 2016, [place] [employer]. Diabetes Care. 2016.39(Suppl 1). Performed By: #### 2 4323-8, XXI5022, 57062-0, 99171-9, 3040-3 ####[facility] LABORATORYCLIA [id number] [place] [id number] [place] Potassium [Moles/Vol] 5.4 mmol/L High 3.7-5.1 [facility] Comment on above: Order Comment: Arben suarez Type: BLOOD SPECIMENOrdering Facility: [facility] Address: [address] [place] [address] Performed By: #### 2 4323-8, [id number], 63928-2, 27392-5, 3040-3 ####[facility] LABORATORYCLIA [id number] [place] [id number] [place] Protein [Mass/Vol] 8.2 g/dL High 6.3-8.[address] [facility] Comment on above: Order Comment: Arben suarez Type: BLOOD SPECIMENOrdering Facility: [facility] Address: [address] [place] [address] Performed By: #### 2 4323-8, HVA6912, 18804-4, 40495-7, 3040-3 ####[facility] LABORATORYCLIA [id number] [place] [id number] [place] Sodium [Moles/Vol] 126 mmol/L Low 136-[address] [facility] Comment on above: Order Comment: Arben suarez Type: BLOOD SPECIMENOrdering Facility: [facility] Address: [address] [place] [address] Performed By: #### 2 4323-8, [id number], 06704-6, 54526-9, 3040-3 ####GEOVANNA LABORATORYCLIA [id number] [place] [address] [place] Urea nitrogen [Mass/Vol] 79 mg/dL High 9-24 [facility] Comment on above: Order Comment: Speci men Type: BLOOD SPECIMENOrdering Facility: [facility] [place] Address: [place] [address] Performed By: #### 2 4323-8, [id number], 53979-1, 85811-9, 3040-3 ####[facility] LABORATORYCLIA [id number] [address] [place] ECG COMPLETEon 08-28-2023 ECG COMPLETE Normal [facility] ED NOTEon 08-28-2023 ED NOTE HNO ID: [id number] Author: ASTRID VALLE RN Service: ? Author Type: Registered Nurse Type: ED Notes Filed: 08/28/2023 19:07 Note Text: Report to LUCIL[facility] ED NOTE HNO ID: [id number] Author: ASTRID VALLE RN Service: ? Author Type: Registered Nurse Type: ED Notes Filed: 08/28/2023 18:33 Note Text: RN unable to obtain oral or axillary temperature. Pt refusing rectal temperature at this time. [facility] ED NOTE HNO ID: [id number] Author: JAVON AVILES RN Service: ? Author Type: Registered Nurse Type: ED Notes Filed: 08/28/2023 17:23 Note Text: Bed: 26-ED Expected date: Expected time: Means of arrival: Comments: triage Normal [facility] ED PROV NOTEon 08-28-2023 ED PROV NOTE [facility] ED Triage Noteon 08-28-2023 ED Triage Note Normal [facility] FLUABV+SARS-CoV-2+RSV Pnl Re sp VERITO+probeon 08-28-2023 FLUABV+SARS-CoV-2+RSV Pnl Resp VERITO+probe [facility] Comment on above: Performed By: #### 9 5941-1 ####[facility]ITALDARIEN LABORATORYCLIA [id number] [address] [place] HIGH SENSITIVITY TROPONIN T (INITIAL)on 08-28-2023 Troponin T.cardiac High sensitivity method [Mass/Vol] 38 ng/L High <12 [facility] Comment on above: Order Comment: Speci men Type: BLOOD SPECIMENOrdering Facility: [facility] Address: [address] [place] [address] Result Comment: When assessing risk for acute [...] day MACE. Performed By: #### 2 4323-8, RVL4522, 00018-2, 57071-9, 3040-3 ####[facility] LABORATORYCLIA [id number] [place] [id number] [place] HIGH SENSITIVITY TROPONIN T (SECOND)on 08-28-2023 Troponin T.cardiac High sensitivity method [Mass/Vol] 36 ng/L High <12 [facility] Comment on above: Order Comment: Arben suarez Type: BLOOD SPECIMENOrdering Facility: [facility] Address: [place] [address] Result Comment: When assessing risk for acute [...] 30 day MACE. Performed By: #### L [id number] ####GEOVANNA LABORATORYCLIA [id number] [place] [id number] [place] Lipase SerPl-cCncon 08-28-19 24 Lipase [Catalytic activity/Vol] 148 U/L High 16-61 [facility] Comment on above: Order Comment: Arben daniela Type: BLOOD SPECIMENOrdering Facility: [facility] Address: [address] [place] [address] Performed By: #### 2 4323-8, [id number], 91775-4, 83354-3, 3040-3 ####GEOV[facility]NA LABORATORYCLIA [id number] [place] [id number] [place] Magnesium SerPl-mCncon 08-28 Magnesium [Mass/Vol] 2.5 mg/dL High 1.7-2.3 [facility] Comment on above: Order Comment: Arben suarez Type: BLOOD SPECIMENOrdering Facility: [facility] Address: [address] [place] [address] Performed By: #### 2 4323-8, DQR0895, 88361-5, 62821-6, 3040-3 ####MARIA STEIN LABORATORYCLIA [id number] [place] [id number] [facility] [place] NT-proBNP [facility] Natriuretic peptide.B prohormone N-Terminal [Mass/Vol] 404 pg/mL High <125 [facility] Comment on above: Order Comment: Arben suarez Type: BLOOD SPECIMENOrdering Facility: [facility] Address: [address] [place] [address] Performed By: #### 2 4323-8, MDU8309, 81470-6, 27128-4, 3040-3 ####MARIA STEIN LABORATORYCLIA [id number] [place] [id number] [place] PT panel Coag (PPP)on 2023 INR Coag (PPP) [Relative time] 1.3 {INR} Normal 0.9-1.3 [facility] Comment on above: Order Comment: Arben suarez Type: BLOOD SPECIMENOrdering Facility: [facility] Address: [address] [place] [address] Result Comment: Karissa min K Antagonist (VKA) Therapeutic Range: INR 2 to 3 (Target INR of 2.5)Note: For patients treated with VKA drugs, such as warfarin, the [place] [employer] 2012 Guideline recommends [...] al. Chest 2012, 141:7S-47SNishimpavel RA, et al. [facility] 2017, 70: 252-289 Performed By: #### 3 4528-0, 93317-5 ####GEOVANNA LABORATORYCLIA [id number] [address] [place] [facility] PT Coag (PPP) [Time] 13.7 s High 9.7-13.0 [facility] Comment on above: Order Comment: Speci men Type: BLOOD SPECIMENOrdering Facility: [facility] Address: [address] [place] [address] Performed By: #### 3 4528-0, 49256-7 ####GEOVANNA LABORATORYCLIA [id number] [address] SEPSIS LACTATEon 08-28-2023 Lactate [Moles/Vol] 2.2 mmol/L High 0.0-2.0 [facility] Comment on above: Order Comment: Speci men Type: BLOOD SPECIMENOrdering Facility: [facility] Address: [address] [place] [address] Performed By: #### S LACT ####GEOVANNA LABORATORYCLIA [id number] [address] Lactate [Moles/Vol] 2.6 mmol/L High 0.0-2.0 [facility] Comment on above: Order Comment: Speci men Type: BLOOD SPECIMENOrdering Facility: [facility] Address: [address] [place] [address] Performed By: #### S LACT ####[facility] LABORATORYCLIA [id number] [address] [place] XR ABDOMEN 1V SUPINEon 08-28 XR ABDOMEN 1V SUPINE Normal [facility] XR CHEST 1V FRONTAL PORTon 0 08-28-2023 XR CHEST 1V FRONTAL PORT Normal [facility] aPTT PPPon 08-28-2023 aPTT Coag (PPP) [Time] 32.1 s Normal 23.0-32.4 [facility] Comment on above: Order Comment: Speci men Type: BLOOD SPECIMENOrdering Facility: [facility] Address: [place] [address] Performed By: #### 3 4528-0, 13429-0 ####MARIA STEIN LABORATORYCLIA [id number] [place] [id number] [place] CASE MANAGEMon 08-17-2023 CASE MANAGEM Normal [facility] CNDSon 08-17-2023 CNDS Normal [facility] Comprehensive metabolic 2000 panelon 08-17-2023 Albumin [Mass/Vol] 3.0 g/dL Low 3.9-4.[address] [facility] Comment on above: Order Comment: Speci men Type: BLOOD SPECIMENOrdering Facility: [facility] Address: [place] [address] Performed By: #### 2 4323-8, 2776-08, ####[facility] LABORATORYCLIA [id number] [place] [id number] [place] ALP [Catalytic activity/Vol] 137 U/L High 38-113 [facility] Comment on above: Order Comment: Speci men Type: BLOOD SPECIMENOrdering Facility: [facility] Address: [place] [address] Performed By: #### 2 4323-8, 2776-08, ####[facility] LABORATORYCLIA [id number] [place] [id number] [place] ALT [Catalytic activity/Vol] 19 U/L Normal 10-54 [facility] Comment on above: Order Comment: Speci men Type: BLOOD SPECIMENOrdering Facility: [facility] Address: [address] [place] [address] Performed By: #### 2 4323-8, 2776-08, ####MARIA STEIN LABORATORYCLIA [id number] [place] [id number] [place] Anion gap [Moles/Vol] 11 mmol/L Normal 9-18 [facility] Comment on above: Order Comment: Speci men Type: BLOOD SPECIMENOrdering Facility: [facility] Address: [address] [place], [place] [address] Performed By: #### 2 4323-8, 2776-08, ####[facility] LABORATORYCLIA [id number] [place] [address] [place] AST [Catalytic activity/Vol] 18 U/L Normal 14-40 [facility] Comment on above: Order Comment: Speci men Type: BLOOD SPECIMENOrdering Facility: [facility] Address: [address] [place] [address] Performed By: #### 2 4323-8, 2776-08, ####[facility] LABORATORYCLIA [id number] [place] [id number] [place] Bilirubin [Mass/Vol] 0.8 mg/dL Normal 0.2-1.3 [facility] Comment on above: Order Comment: Speci men Type: BLOOD SPECIMENOrdering Facility: [facility] Address: [address] [place] [address] Performed By: #### 2 4323-8, 2776-08, ####[facility] LABORATORYCLIA [id number] [place] [id number] [place] Calcium [Mass/Vol] 8.4 mg/dL Low 8.5-10.[address] [facility] Comment on above: Order Comment: Speci men Type: BLOOD SPECIMENOrdering Facility: [facility] Address: [address] [place] [address] Performed By: #### 2 4323-8, 2776-08, ####[facility] LABORATORYCLIA [id number] [place] [id number] [place] Chloride [Moles/Vol] 102 mmol/L Normal 97-105 [facility] Comment on above: Order Comment: Speci men Type: BLOOD SPECIMENOrdering Facility: [facility] Address: [address] [place] [address] Performed By: #### 2 4323-8, 2776-08, ####[facility] LABORATORYCLIA [id number] [place] [id number] [place] CO2 [Moles/Vol] 22 mmol/L Normal 22-30 [facility] Comment on above: Order Comment: Speci men Type: BLOOD SPECIMENOrdering Facility: [facility] Address: [address] [place] [address] Performed By: #### 2 4323-8, 27702-22, ####MARIA STEIN LABORATORYCLIA [id number] [place] [address] [place] Creatinine [Mass/Vol] 1.06 mg/dL Normal 0.73-1.22 [facility] Comment on above: Order Comment: Demarcusi men Type: BLOOD SPECIMENOrdering Facility: [facility] Address: [address] [place] [address] Performed By: #### 2 4323-8, 2776-08, ####MARIA STEIN LABORATORYCLIA [id number] [place] [address] [place] Creatinine and Glomerular filtration rate.predicted panel (S/P/Bld) 76 mL/min/1.73m??? Normal >=60 [facility] Comment on above: Order Comment: Speci men Type: BLOOD SPECIMENOrdering Facility: [facility] Address: [place] [address] Result Comment: Bailey mated Glomerular Filtration Rate [...] GFR. Performed By: #### 2 4323-8, 27702-22, ####MARIA STEIN LABORATORYCLIA [id number] [place] [address] [place] Glucose [Mass/Vol] 119 mg/dL High 74-[address] [facility] Comment on above: Order Comment: Speci daniela Type: BLOOD SPECIMENOrdering Facility: [facility] Address: [address] [place] [address] Result Comment: The [place] [employer] (ADA) provides guidance for cutoff [...] Standards of Medical Care in Diabetes 2016, [place] [employer]. Diabetes Care. 2016.39(Suppl 1). Performed By: #### 2 4323-8, 2776-08, ####GEOVANNA LABORATORYCLIA [id number] [place] [address] [place] Potassium [Moles/Vol] 3.9 mmol/L Normal 3.7-5.1 [facility] Comment on above: Order Comment: Speci men Type: BLOOD SPECIMENOrdering Facility: [facility] Address: [address] [place] [address] Performed By: #### 2 4323-8, 2776-08, ####GEOVANNA LABORATORYCLIA [id number] [place] [id number] [place] Protein [Mass/Vol] 5.9 g/dL Low 6.3-8.[address] [facility] Comment on above: Order Comment: Speci men Type: BLOOD SPECIMENOrdering Facility: [facility] Address: [address] [place] [address] Performed By: #### 2 4323-8, 2776-08, ####GEOVANNA LABORATORYCLIA [id number] [place] [id number] [place] Sodium [Moles/Vol] 135 mmol/L Low 136-[address] [facility] Comment on above: Order Comment: Speci men Type: BLOOD SPECIMENOrdering Facility: [facility] Address: [address] [place] [address] Performed By: #### 2 4323-8, 2776-08, ####MARIA STEIN LABORATORYCLIA [id number] [place] [address] [place] Urea nitrogen [Mass/Vol] 19 mg/dL Normal 05-18 [facility] Comment on above: Order Comment: Speci men Type: BLOOD SPECIMENOrdering Facility: [facility] Address: [address] [place] [address] Performed By: #### 2 4323-8, 2777-1, ####MARIA STEIN LABORATORYCLIA [id number] [place] [id number] [place] Magnesium [facility] Magnesium [Mass/Vol] 2.3 mg/dL Normal 1.7-2.3 [facility] Comment on above: Order Comment: Speci men Type: BLOOD SPECIMENOrdering Facility: [facility] Address: [address] [place] [address] Performed By: #### 2 4323-8, 27702-22, ####MARIA STEIN LABORATORYCLIA [id number] [place] [id number] [place] NURSING PROGon 08-17-2023 NURSING PROG Normal [facility] Phosphate SerPl-mCncon 08-17 Phosphate [Mass/Vol] 3.0 mg/dL Normal 2.7-4.8 [facility] Comment on above: Order Comment: Speci men Type: BLOOD SPECIMENOrdering Facility: [facility] Address: [address] [place] [address] Performed By: #### 2 4323-8, 2777, ####MARIA STEIN LABORATORYCLIA [id number] [place] [id number] [place] CASE MANAGEMon 08-16-2023 CASE MANAGEM Normal [facility] CBC panel Auto (Bld)on 08-16 Erythrocyte distribution width (RBC) [Ratio] 12.0 % Normal 11.5-15.0 [facility] Comment on above: Order Comment: Speci men Type: BLOOD SPECIMENOrdering Facility: [facility] Address: [address] [place] [address] Performed By: #### 5 8410-2 ####[facility] LABORATORYCLIA [id number] [address] [place] Hematocrit (Bld) [Volume fraction] 33.3 % Low 39.0-51.0 [facility] Comment on above: Order Comment: Speci men Type: BLOOD SPECIMENOrdering Facility: [facility] Address: [address] [place] [address] Performed By: #### 5 8410-2 ####[facility] LABORATORYCLIA [id number] [address] [place] Hemoglobin (Bld) [Mass/Vol] 11.1 g/dL Low 13.0-17.0 [facility] Comment on above: Order Comment: Speci men Type: BLOOD SPECIMENOrdering Facility: [facility] Address: [address] [place] [address] Performed By: #### 5 8410-2 ####[facility] LABORATORYCLIA [id number] [place] [address] [place] MCH (RBC) [Entitic mass] 30.2 pg Normal 26.0-34.0 [facility] Comment on above: Order Comment: Speci men Type: BLOOD SPECIMENOrdering Facility: [facility] Address: [address] [place] [address] Performed By: #### 5 8410-2 ####GEOVANNA LABORATORYCLIA [id number] [place] [address] [place] MCHC (RBC) [Mass/Vol] 33.3 g/dL Normal 30.5-36.0 [facility] Comment on above: Order Comment: Speci men Type: BLOOD SPECIMENOrdering Facility: [facility] Address: [address] [place] [address] Performed By: #### 5 8410-2 ####[facility] LABORATORYCLIA [id number] [address] MCV (RBC) [Entitic vol] 90.5 fL Normal 80.0-100.0 [facility] Comment on above: Order Comment: Speci men Type: BLOOD SPECIMENOrdering Facility: [facility] Address: [address] [place] [address] Performed By: #### 5 8410-2 ####MARIA STEIN LABORATORYCLIA [id number] [place] [id number] [place] Nucleated RBC (Bld) [#/Vol] 10*3/uL Normal <0.01 [facility] Comment on above: Order Comment: Speci men Type: BLOOD SPECIMENOrdering Facility: [facility] Address: [address] [place] [address] Performed By: #### 5 8410-2 ####MARIA STEIN LABORATORYCLIA [id number] [place] [id number] [place] Platelet mean volume (Bld) [Entitic vol] 11.3 fL Normal 9.0-12.7 [facility] Comment on above: Order Comment: Speci men Type: BLOOD SPECIMENOrdering Facility: [facility] Address: [address] [place] [address] Performed By: #### 5 8410-2 ####MARIA STEIN LABORATORYCLIA [id number] [place] [address] [place] Platelets (Bld) [#/Vol] 214 10*3/uL Normal 150-400 [facility] Comment on above: Order Comment: Speci men Type: BLOOD SPECIMENOrdering Facility: [facility] Address: [address] [place] [address] Performed By: #### 5 8410-2 ####MARIA STEIN LABORATORYCLIA [id number] [place] [id number] [place] RBC (Bld) [#/Vol] 3.68 10*6/uL Low 4.20-6.00 [facility] Comment on above: Order Comment: Speci men Type: BLOOD SPECIMENOrdering Facility: [facility] Address: [address] [place] [address] Performed By: #### 5 8410-2 ####MARIA STEIN LABORATORYCLIA [id number] [place] [id number] [place] WBC (Bld) [#/Vol] 7.23 10*3/uL Normal 3.70-11.00 [facility] Comment on above: Order Comment: Speci men Type: BLOOD SPECIMENOrdering Facility: [facility] Address: [address] [place] [address] Performed By: #### 5 8410-2 ####MARIA STEIN LABORATORYCLIA [id number] [place] [address] [place] CONSULTon 08-16-2023 CONSULT Normal [facility] Comprehensive metabolic 2000 panelon 08-16-2023 Albumin [Mass/Vol] 3.2 g/dL Low 3.9-4.[address] [facility] Comment on above: Order Comment: Speci men Type: BLOOD SPECIMENOrdering Facility: [facility] Address: [address] [place] [address] Performed By: #### 2 777-1, , ####MARIA STEIN LABORATORYCLIA [id number] [place] [id number] [place] ALP [Catalytic activity/Vol] 139 U/L High 38-113 [facility] Comment on above: Order Comment: Speci men Type: BLOOD SPECIMENOrdering Facility: [facility] Address: [address] [place] [address] Performed By: #### 2 777-1, , ####MARIA STEIN LABORATORYCLIA [id number] [place] [id number] [place] ALT [Catalytic activity/Vol] 23 U/L Normal 10-54 [facility] Comment on above: Order Comment: Speci men Type: BLOOD SPECIMENOrdering Facility: [facility] Address: [address] [place] [address] Performed By: #### 2 777-1, , ####MARIA STEIN LABORATORYCLIA [id number] [place] [address] [place] Anion gap [Moles/Vol] 9 mmol/L Normal 9-18 [facility] Comment on above: Order Comment: Speci men Type: BLOOD SPECIMENOrdering Facility: [facility] Address: [address] [place] [address] Performed By: #### 2 777-1, , ####MARIA STEIN LABORATORYCLIA [id number] [place] [address] [place] AST [Catalytic activity/Vol] 22 U/L Normal 14-40 [facility] Comment on above: Order Comment: Speci men Type: BLOOD SPECIMENOrdering Facility: [facility] Address: [address] [place] [address] Performed By: #### 2 777-1, , ####[facility] LABORATORYCLIA [id number] [place] [id number] [place] Bilirubin [Mass/Vol] 0.8 mg/dL Normal 0.2-1.3 [facility] Comment on above: Order Comment: Speci men Type: BLOOD SPECIMENOrdering Facility: [facility] Address: [address] [place] [address] Performed By: #### 2 777-1, , ####MARIA STEIN LABORATORYCLIA [id number] [place] [id number] [place] Calcium [Mass/Vol] 8.7 mg/dL Normal 8.5-10.[address] [facility] Comment on above: Order Comment: Speci men Type: BLOOD SPECIMENOrdering Facility: [facility] Address: [address] [place] [address] Performed By: #### 2 777-1, , ####[facility] LABORATORYCLIA [id number] [place] [id number] [place] Chloride [Moles/Vol] 103 mmol/L Normal 97-105 [facility] Comment on above: Order Comment: Speci men Type: BLOOD SPECIMENOrdering Facility: [facility] Address: [address] [place] [address] Performed By: #### 2 777-1, , ####[facility] LABORATORYCLIA [id number] [place] [address] [place] CO2 [Moles/Vol] 25 mmol/L Normal 22-30 [facility] Comment on above: Order Comment: Speci men Type: BLOOD SPECIMENOrdering Facility: [facility] Address: [address] [place] [address] Performed By: #### 2 777-1, , ####MARIA STEIN LABORATORYCLIA [id number] [place] [address] [place] Creatinine [Mass/Vol] 1.04 mg/dL Normal 0.73-1.22 [facility] Comment on above: Order Comment: Speci men Type: BLOOD SPECIMENOrdering Facility: [facility] Address: [address] [place] [address] Performed By: #### 2 777-1, , ####MARIA STEIN LABORATORYCLIA [id number] [place] [address] [place] Creatinine and Glomerular filtration rate.predicted panel (S/P/Bld) 78 mL/min/1.73m??? Normal >=60 [facility] Comment on above: Order Comment: Speci men Type: BLOOD SPECIMENOrdering Facility: [facility] Address: [address] [place] [address] Result Comment: Bailey mated Glomerular Filtration Rate [...] GFR. Performed By: #### 2 777-1, , ####MARIA STEIN LABORATORYCLIA [id number] [place] [id number] [place] Glucose [Mass/Vol] 111 mg/dL High 74-[address] [facility] Comment on above: Order Comment: Speci daniela Type: BLOOD SPECIMENOrdering Facility: [facility] Address: [address] [place] [address] Result Comment: The [place] [employer] (ADA) provides guidance for cutoff [...] Standards of Medical Care in Diabetes 2016, [place] [employer]. Diabetes Care. 2016.39(Suppl 1). Performed By: #### 2 777-1, , ####GEOVANNA LABORATORYCLIA [id number] [place] [id number] [place] Potassium [Moles/Vol] 4.2 mmol/L Normal 3.7-5.1 [facility] Comment on above: Order Comment: Speci men Type: BLOOD SPECIMENOrdering Facility: [facility] Address: [address] [place] [address] Performed By: #### 2 777-1, , ####GEOVANNA LABORATORYCLIA [id number] [place] [id number] [place] Protein [Mass/Vol] 6.2 g/dL Low 6.3-8.[address] [facility] Comment on above: Order Comment: Speci men Type: BLOOD SPECIMENOrdering Facility: [facility] Address: [address] [place] [address] Performed By: #### 2 777-1, , ####GEOVANNA LABORATORYCLIA [id number] [place] [id number] [place] Sodium [Moles/Vol] 137 mmol/L Normal 136-[address] [facility] Comment on above: Order Comment: Speci men Type: BLOOD SPECIMENOrdering Facility: [facility] Address: [address] [place] [address] Performed By: #### 2 777-1, , ####GEOVANNA LABORATORYCLIA [id number] [place] [id number] [place] Urea nitrogen [Mass/Vol] 24 mg/dL Normal - [facility] Comment on above: Order Comment: Speci men Type: BLOOD SPECIMENOrdering Facility: [facility] Address: [address] [place] [address] Performed By: #### 2 777-1, 83582-3, ####MARIA STEIN LABORATORYCLIA [id number] [place] [id number] [place] Magnesium SerPl-mCncon 08-16 Magnesium [Mass/Vol] 1.8 mg/dL Normal 1.7-2.3 [facility] Comment on above: Order Comment: Speci men Type: BLOOD SPECIMENOrdering Facility: [facility] Address: [address] [place] [address] Performed By: #### 2 777-1, 42146-4, ####MARIA STEIN LABORATORYCLIA [id number] [place] [address] [place] Phosphate SerPl-mCncon 08-16 Phosphate [Mass/Vol] 2.6 mg/dL Low 2.7-4.8 [facility] Comment on above: Order Comment: Speci men Type: BLOOD SPECIMENOrdering Facility: [facility] Address: [address] [place] [address] Performed By: #### 2 777-1, 87917-5, ####MARIA STEIN LABORATORYCLIA [id number] [address] [place] [id number] [place] OF [place] ALLIED HEALTHon 08-15-2023 ALLIED HEALTH Normal [facility] ALLIED HEALTH Normal [facility] Basic metabolic 2000 panelon 08-15-2023 Anion gap [Moles/Vol] 10 mmol/L Normal - [facility] Comment on above: Order Comment: Speci men Type: BLOOD SPECIMENOrdering Facility: [facility] Address: [address] [place] [address] Performed By: #### 2 4321-2 ####MARIA STEIN LABORATORYCLIA [id number] [place] [address] [place] Calcium [Mass/Vol] 8.8 mg/dL Normal 8.5-10.[address] [facility] Comment on above: Order Comment: Speci men Type: BLOOD SPECIMENOrdering Facility: [facility] Address: [address] [place] [address] Performed By: #### 2 4321-2 ####MARIA STEIN LABORATORYCLIA [id number] [place] [id number] [place] Chloride [Moles/Vol] 101 mmol/L Normal 97-105 [facility] Comment on above: Order Comment: Speci men Type: BLOOD SPECIMENOrdering Facility: [facility] Address: [address] [place] [address] Performed By: #### 2 4321-2 ####MARIA STEIN LABORATORYCLIA [id number] [place] [id number] [place] CO2 [Moles/Vol] 26 mmol/L Normal 22-30 [facility] Comment on above: Order Comment: Speci men Type: BLOOD SPECIMENOrdering Facility: [facility] Address: [address] [place] [address] Performed By: #### 2 4321-2 ####MARIA STEIN LABORATORYCLIA [id number] [place] [id number] [place] Creatinine [Mass/Vol] 1.08 mg/dL Normal 0.73-1.22 [facility] Comment on above: Order Comment: Speci men Type: BLOOD SPECIMENOrdering Facility: [facility] Address: [address] [place] [address] Performed By: #### 2 4321-2 ####MARIA STEIN LABORATORYCLIA [id number] [place] [id number] [place] Creatinine and Glomerular filtration rate.predicted panel (S/P/Bld) 75 mL/min/1.73m??? Normal >=60 [facility] Comment on above: Order Comment: Speci men Type: BLOOD SPECIMENOrdering Facility: [facility] Address: [address] [place] [address] Result Comment: Bailey mated Glomerular Filtration Rate [...] actual GFR. Performed By: #### 2 4321-2 ####[facility] LABORATORYCLIA [id number] [place] [id number] [place] Glucose [Mass/Vol] 92 mg/dL Normal 74-[address] [facility] Comment on above: Order Comment: Specbrooks men Type: BLOOD SPECIMENOrdering Facility: [facility] Address: [address] [place] [address] Result Comment: The [place] Diabetes [employer] (ADA) provides guidance for cutoff [...] Standards of Medical Care in Diabetes 2016, [place] [employer]. Diabetes Care. 2016.39(Suppl 1). Performed By: #### 2 4321-2 ####GEOVANNA LABORATORYCLIA [id number] [place] [id number] [place] Potassium [Moles/Vol] 4.6 mmol/L Normal 3.7-5.1 [facility] Comment on above: Order Comment: Arben suarez Type: BLOOD SPECIMENOrdering Facility: [facility] Address: [address] [place] [id number] Performed By: #### 2 4321-2 ####GEOVANNA LABORATORYCLIA [id number] [place] [id number] [place] Sodium [Moles/Vol] 137 mmol/L Normal 136-[address] [facility] Comment on above: Order Comment: Arben men Type: BLOOD SPECIMENOrdering Facility: [facility] Address: [address] [place] [address] Performed By: #### 2 4321-2 ####[facility] LABORATORYCLIA [id number] [place] [address] [place] Urea nitrogen [Mass/Vol] 28 mg/dL High 9-24 [facility] Comment on above: Order Comment: Speci men Type: BLOOD SPECIMENOrdering Facility: [facility] Address: [address] [place] [address] Performed By: #### 2 4321-2 ####[facility] LABORATORYCLIA [id number] [place] [address] [place] CASE MANAGEMon 08-15-2023 CASE MANAGEM Normal [facility] CASE MANAGEM Normal [facility] CONSULT PROGon 08-15-2023 CONSULT PROG Normal [facility] Comprehensive metabolic 2000 panelon 08-15-2023 Albumin [Mass/Vol] 3.0 g/dL Low 3.9-4.[address] [facility] Comment on above: Order Comment: Speci men Type: BLOOD SPECIMENOrdering Facility: [facility] Address: [address] [place] [address] Performed By: #### 1 9123-9, 73628-6, 2777-1 ####[facility] LABORATORYCLIA [id number] [place] [id number] [place] ALP [Catalytic activity/Vol] 123 U/L High 38-113 [facility] Comment on above: Order Comment: Speci men Type: BLOOD SPECIMENOrdering Facility: [facility] Address: [address] [place] [address] Performed By: #### 1 9123-9, 76796-7, 2777-1 ####[facility] LABORATORYCLIA [id number] [place] [id number] [place] ALT [Catalytic activity/Vol] 24 U/L Normal 10-54 [facility] Comment on above: Order Comment: Speci men Type: BLOOD SPECIMENOrdering Facility: [facility] Address: [address] [place] [address] Performed By: #### 1 9123-9, 85914-1, 2776-08 ####MARIA STEIN LABORATORYCLIA [id number] [place] [address] [place] Anion gap [Moles/Vol] 8 mmol/L Low 9-18 [facility] Comment on above: Order Comment: Speci men Type: BLOOD SPECIMENOrdering Facility: [facility] Address: [address] [place] [address] Performed By: #### 1 9123-9, 10073-1, 2776- ####[facility] LABORATORYCLIA [id number] [place] [id number] [place] AST [Catalytic activity/Vol] 26 U/L Normal 14-40 [facility] Comment on above: Order Comment: Speci men Type: BLOOD SPECIMENOrdering Facility: [facility] Address: [address] [place] [address] Performed By: #### 1 9123-9, , 2776- ####[facility] LABORATORYCLIA [id number] [place] [address] [place] Bilirubin [Mass/Vol] 0.9 mg/dL Normal 0.2-1.3 [facility] Comment on above: Order Comment: Speci men Type: BLOOD SPECIMENOrdering Facility: [facility] Address: [address] [place] [address] Performed By: #### 1 9123-9, 46729-6, 2776- ####MARIA STEIN LABORATORYCLIA [id number] [place] [address] [place] Calcium [Mass/Vol] 8.9 mg/dL Normal 8.5-10.[address] [facility] Comment on above: Order Comment: Speci men Type: BLOOD SPECIMENOrdering Facility: [facility] Address: [address] [place] [address] Performed By: #### 1 9123-9, 05143-9, 2776- ####[facility] LABORATORYCLIA [id number] [place] [id number] [place] Chloride [Moles/Vol] 103 mmol/L Normal 97-105 [facility] Comment on above: Order Comment: Speci men Type: BLOOD SPECIMENOrdering Facility: [facility] Address: [address] [place] [address] Performed By: #### 1 9123-9, 78838-8, 2776-08 ####[facility] LABORATORYCLIA [id number] [place] [id number] [place] CO2 [Moles/Vol] 28 mmol/L Normal 22-30 [facility] Comment on above: Order Comment: Speci men Type: BLOOD SPECIMENOrdering Facility: [facility] Address: [address] [place] [address] Performed By: #### 1 9123-9, , 2776-08 ####MARIA STEIN LABORATORYCLIA [id number] [address] [facility] Creatinine [Mass/Vol] 1.01 mg/dL Normal 0.73-1.22 [facility] Comment on above: Order Comment: Speci men Type: BLOOD SPECIMENOrdering Facility: [facility] Address: [address] [place] [address] Performed By: #### 1 9123-9, , 2776-08 ####[facility] LABORATORYCLIA [id number] [address] Creatinine and Glomerular filtration rate.predicted panel (S/P/Bld) 81 mL/min/1.73m??? Normal >=60 [facility] Comment on above: Order Comment: Speci men Type: BLOOD SPECIMENOrdering Facility: [facility] Address: [address] [place] [address] Result Comment: Bailey mated Glomerular Filtration Rate [...] actual GFR. Performed By: #### 1 9123-9, 77585-5, 2776-08 ####MARIA STEIN LABORATORYCLIA [id number] [place] [id number] [place] Glucose [Mass/Vol] 91 mg/dL Normal 74-[address] [facility] Comment on above: Order Comment: Arben suarez Type: BLOOD SPECIMENOrdering Facility: [facility] Address: [address] [place] [address] Result Comment: The [place] Diabetes Association (ADA) provides guidance for cutoff [...] Standards of Medical Care in Diabetes 2016, [place] [employer]. Diabetes Care. 2016.39(Suppl 1). Performed By: #### 1 9123-9, 99593-0, 2776-08 ####MARIA STEIN LABORATORYCLIA [id number] [place] [address] [place] Potassium [Moles/Vol] 5.3 mmol/L High 3.7-5.1 [facility] Comment on above: Order Comment: Arben suarez Type: BLOOD SPECIMENOrdering Facility: [facility] Address: [address] [place] [address] Performed By: #### 1 9123-9, 50325-7, 2776-08 ####MARIA STEIN LABORATORYCLIA [id number] [place] [address] [place] Protein [Mass/Vol] 6.1 g/dL Low 6.3-8.[address] [facility] Comment on above: Order Comment: Arben suarez Type: BLOOD SPECIMENOrdering Facility: [facility] Address: [address] [place] [address] Performed By: #### 1 9123-9, 98037-2, 2776-08 ####MARIA STEIN LABORATORYCLIA [id number] [place] [id number] [place] Sodium [Moles/Vol] 139 mmol/L Normal 136-[address] [facility] Comment on above: Order Comment: Speci men Type: BLOOD SPECIMENOrdering Facility: [facility] Address: [address] [place] [address] Performed By: #### 1 9123-9, 38149-6, 2777-1 ####MARIA STEIN LABORATORYCLIA [id number] [place] [id number] [place] Urea nitrogen [Mass/Vol] 30 mg/dL High 9-24 [facility] Comment on above: Order Comment: Speci men Type: BLOOD SPECIMENOrdering Facility: [facility] Address: [place] [address] Performed By: #### 1 9123-9, 05146-2, 2776- ####MARIA STEIN LABORATORYCLIA [id number] [place] [address] [place] [facility] Magnesium [Mass/Vol] 1.9 mg/dL Normal 1.7-2.3 [facility] Comment on above: Order Comment: Speci men Type: BLOOD SPECIMENOrdering Facility: [facility] Address: [place] [address] Performed By: #### 1 9123-9, 28993-7, 2776- ####MARIA STEIN LABORATORYCLIA [id number] [place] [id number] [place] NURSING PROGon 08-15-2023 NURSING PROG Normal [facility] NUTRITIONon 08-15-2023 NUTRITION Normal [facility] Phosphate SerPl-mCncon 08-15 Phosphate [Mass/Vol] 2.5 mg/dL Low 2.7-4.8 [facility] Comment on above: Order Comment: Speci men Type: BLOOD SPECIMENOrdering Facility: [facility] Address: [place] [address] Performed By: #### 1 9123-9, 33806-8, 2777-1 ####MARIA STEIN LABORATORYCLIA [id number] [place] [id number] [place] XR ABDOMEN 1V SUPINEon 08-15 XR ABDOMEN 1V SUPINE Normal [facility] ANES POSTPROC EVALon 023 ANES POSTPROC EVAL Normal [facility] ANES PRE-OPon 08-14-2023 ANES PRE-OP Normal [facility] CASE MANAGEMon 08-14-2023 CASE MANAGEM Normal [facility] CNCOon 08-14-2023 CNCO Letter Text Normal [facility] metabolic 2000 panelon 08-14-2023 Albumin [Mass/Vol] 3.2 g/dL Low 3.9-4.[address] [facility] Comment on above: Order Comment: Speci men Type: BLOOD SPECIMENOrdering Facility: [facility] Address: [address] [place] [address] Performed By: #### 2 4323-8, , 2776-08 ####MARIA STEIN LABORATORYCLIA [id number] [place] [address] [place] ALP [Catalytic activity/Vol] 122 U/L High 38-113 [facility] Comment on above: Order Comment: Speci men Type: BLOOD SPECIMENOrdering Facility: [facility] Address: [address] [place] [address] Performed By: #### 2 4323-8, , 2776-08 ####MARIA STEIN LABORATORYCLIA [id number] [place] [address] [place] ALT [Catalytic activity/Vol] 19 U/L Normal 10-54 [facility] Comment on above: Order Comment: Speci men Type: BLOOD SPECIMENOrdering Facility: [facility] Address: [address] [place] [address] Performed By: #### 2 4323-8, , 2776-08 ####MARIA STEIN LABORATORYCLIA [id number] [place] [address] [place] Anion gap [Moles/Vol] 13 mmol/L Normal 9-18 [facility] Comment on above: Order Comment: Speci men Type: BLOOD SPECIMENOrdering Facility: [facility] Address: [address] [place] [address] Performed By: #### 2 4323-8, , 2776-08 ####[facility] LABORATORYCLIA [id number] [place] [address] [place] AST [Catalytic activity/Vol] 26 U/L Normal 14-40 [facility] Comment on above: Order Comment: Speci men Type: BLOOD SPECIMENOrdering Facility: [facility] Address: [address] [place] [address] Performed By: #### 2 3-8, , 2776-08 ####[facility] LABORATORYCLIA [id number] [place] [id number] [place] Bilirubin [Mass/Vol] 1.0 mg/dL Normal 0.2-1.3 [facility] Comment on above: Order Comment: Speci men Type: BLOOD SPECIMENOrdering Facility: [facility] Address: [address] [place] [address] Performed By: #### 2 8, , 2776-08 ####MARIA STEIN LABORATORYCLIA [id number] [place] [id number] [place] Calcium [Mass/Vol] 9.0 mg/dL Normal 8.5-10.[address] [facility] Comment on above: Order Comment: Speci men Type: BLOOD SPECIMENOrdering Facility: [facility] Address: [address] [place] [address] Performed By: #### 2 4322-8, , 2776-08 ####[facility] LABORATORYCLIA [id number] [place] [address] [place] Chloride [Moles/Vol] 100 mmol/L Normal 97-105 [facility] Comment on above: Order Comment: Speci men Type: BLOOD SPECIMENOrdering Facility: [facility] Address: [address] [place] [address] Performed By: #### 2 4323-8, , 2776-08 ####[facility] LABORATORYCLIA [id number] [place] [id number] [place] CO2 [Moles/Vol] 26 mmol/L Normal 22-30 [facility] Comment on above: Order Comment: Speci men Type: BLOOD SPECIMENOrdering Facility: [facility] Address: [address] [place] [address] Performed By: #### 2 4323-8, , 2776-08 ####MARIA STEIN LABORATORYCLIA [id number] [place] [id number] [place] Creatinine [Mass/Vol] 1.12 mg/dL Normal 0.73-1.22 [facility] Comment on above: Order Comment: Demarcus men Type: BLOOD SPECIMENOrdering Facility: [facility] Address: [address] [place] [address] Performed By: #### 2 4323-8, , 2776-08 ####MARIA STEIN LABORATORYCLIA [id number] [place] [address] [place] Creatinine and Glomerular filtration rate.predicted panel (S/P/Bld) 72 mL/min/1.73m??? Normal >=60 [facility] Comment on above: Order Comment: Arben [facility] Type: BLOOD SPECIMENOrdering Facility: [facility] Address: [address] [place] [address] Result Comment: Bailey mated Glomerular Filtration Rate [...] Performed By: #### 2 4323-8, , 2776-08 ####MARIA STEIN LABORATORYCLIA [id number] [place] [id number] [place] Glucose [Mass/Vol] 127 mg/dL High 74-[address] [facility] Comment on above: Order Comment: Speci daniela Type: BLOOD SPECIMENOrdering Facility: [facility] Address: [address] [place] [address] Result Comment: The [place] [employer] (ADA) provides guidance for cutoff [...] Standards of Medical Care in Diabetes 2016, [place] [employer]. Diabetes Care. 2016.39(Suppl 1). Performed By: #### 2 4323-8, , 2776-08 ####GEOVANNA LABORATORYCLIA [id number] [place] [id number] [place] Potassium [Moles/Vol] 4.1 mmol/L Normal 3.7-5.1 [facility] Comment on above: Order Comment: Speci men Type: BLOOD SPECIMENOrdering Facility: [facility] Address: [address] [place] [address] Performed By: #### 2 43238, , 2776-08 ####GEOVANNA LABORATORYCLIA [id number] [place] [address] [place] Protein [Mass/Vol] 6.6 g/dL Normal 6.3-8.[address] [facility] Comment on above: Order Comment: Speci men Type: BLOOD SPECIMENOrdering Facility: [facility] Address: [address] [place] [address] Performed By: #### 2 4323-8, , 2776-08 ####GEOVANNA LABORATORYCLIA [id number] [place] [id number] [place] Sodium [Moles/Vol] 139 mmol/L Normal 136-[address] [facility] Comment on above: Order Comment: Speci men Type: BLOOD SPECIMENOrdering Facility: [facility] Address: [address] [place] [address] Performed By: #### 2 4323-8, , 2776-08 ####GEOVANNA LABORATORYCLIA [id number] [place] [id number] [place] Urea nitrogen [Mass/Vol] 34 mg/dL High 05-18 [facility] Comment on above: Order Comment: Speci men Type: BLOOD SPECIMENOrdering Facility: [facility] Address: [address] [place] [id number] Performed By: #### 2 4323-8, 60541-6, 2776- ####MARIA STEIN LABORATORYCLIA [id number] [place] [id number] [place] HISTORY PHYSICALon HISTORY PHYSICAL Normal [facility] Magnesium SerPl-ncon 08-14 Magnesium [Mass/Vol] 2.0 mg/dL Normal 1.7-2.3 [facility] Comment on above: Order Comment: Speci men Type: BLOOD SPECIMENOrdering Facility: [facility] Address: [address] [place] [id number] Performed By: #### 2 4323-8, , 2776-08 ####MARIA STEIN LABORATORYCLIA [id number] [place] [id number] [place] NURSING PROGon 08-14-2023 NURSING PROG Normal [facility] NURSING PROG Normal [facility] NURSING PROG Normal [facility] NUTRITIONon 08-14-2023 NUTRITION Normal [facility] Phosphate SerPl-ncon 08-14 Phosphate [Mass/Vol] 2.9 mg/dL Normal 2.7-4.8 [facility] Comment on above: Order Comment: Speci men Type: BLOOD SPECIMENOrdering Facility: [facility] Address: [address] [place] [id number] Performed By: #### 2 4323-8, 52707-8, 2776-08 ####MARIA STEIN LABORATORYCLIA [id number] [place] [id number] [place] Upper GI endoscopyon 023 Upper GI endoscopy Normal [facility] XR ABDOMEN 1V SUPINEon 08-14 XR ABDOMEN 1V SUPINE Normal [facility] XR ABDOMEN 1V SUPINE Normal [facility] ALLIED HEALTHon 08-13-2023 ALLIED HEALTH [facility] ANES POSTPROC EVALon 023 ANES POSTPROC EVAL Normal [facility] ANES PRE-OPon 08-13-2023 ANES PRE-OP Normal [facility] CASE MANAGEMon 08-13-2023 CASE MANAGEM [facility] CNPNon 08-13-2023 CNPN Telephone ([id number]) -- AISHA JULIEN ([id number]) 1955 M Date Time Provider Department 08/13/23 [facility] [id number] During your visit today, we recorded the following information about you: Jessie Zamora RN 08/13/2023 10:25 AM Signed Call made to [facility] patient employer to get [facility] paperwork for him. Left a with [...] RN - Fully Assessed Reason for Visit: [facility] Paperwork [[id number]] Prescriptions as of 08/14/2023 [...] NaCl 0.45% iv infusion - phenol 1 [place] ([facility]) - NaCl 0.9% iv flush bag [...] Encounter Status:Closed by JESSIE ZAMORA on 08/14/23 [facility] CYTOLOGY NON-GYNon 3 ADEQUACY INTERPRETATION Normal [facility] Comment on above: Order Comment: Speci men Type: SPECIMEN OBTAINED BY ASPIRATIONOrdering Facility: [facility] Address: [place] [address] Result Comment: A: # 1 Lymphoid sampleB: #1, 2 Lesional cells present. Monotonous cells could be low-grade neuroendocrine tumor.Dr. Dsouza / Richard Farrell letter in the above intra-procedural assessment refers to a unique site. The specific site is indicated in the final diagnosis portion of the report. Each number in this assessment references a discrete evaluation episode.Intra-procedural assessment performed at [facility], [address] [place] [address] Performed By: #### C YTONON ####MARIA STEIN LABORATORYCLIA [id number] [address] [place] CASE REPORT Normal [facility] Comment on above: Order Comment: Speci men Type: SPECIMEN OBTAINED BY ASPIRATIONOrdering Facility: [facility] Address: [address] [place] [address] Result Comment: [facility] Cytology Report Case: [id number] Provider: Stephanie Avery MD Collected: 08/13/2023 11:22 AMOrdering Location: [facility] Received: 08/13/2023 12:00 PM Endoscopy - ENDOPathologist: Darrius Dsouza MDSpecimens: A) - LYMPH NODE FINE NEEDLE ASPIRATION, PORTAL LYMPH NODE B) - PANCREAS FINE NEEDLE ASPIRATION, UNCINATE PROCESS Performed By: #### C YTONON ####MARIA STEIN LABORATORYCLIA [id number] [address] [place] CLINICAL HISTORY Weight loss Normal [facility] Comment on above: Order Comment: Speci men Type: SPECIMEN OBTAINED BY ASPIRATIONOrdering Facility: [facility] Address: [address] [place] [address] Result Comment: Lupillo kenny outlet obstructionTachycardiaHypomagnesemiaAKI Performed By: #### C YTONON ####MARIA STEIN LABORATORYCLIA [id number] [address] [place] DIAGNOSIS COMMENT Normal [facility] Comment on above: Order Comment: Speci men Type: SPECIMEN OBTAINED BY ASPIRATIONOrdering Facility: [facility] Address: [address] [place] [address] Result Comment: A. T he diagnostic neoplastic cells are predominantly found on the ThinPrep slide. The discrepancy between the RIVERA diagnosis of lymphoid sample and the final diagnosis was reported by secure staff message to Dr. Avery on 08/14/2023 at 1101.B. This part of the case was interpreted in conjunction with the related surgical pathology case [id number] with diagnostic concurrence. Performed By: #### C YTONON ####MARIA STEIN LABORATORYCLIA [id number] [address] FINAL DIAGNOSIS [facility] Comment on above: Order Comment: Speci men Type: SPECIMEN OBTAINED BY ASPIRATIONOrdering Facility: [facility] Address: [address] [place] [address] Result Comment: A - LYMPH NODE FINE [...] Alcohol Fixed Performed By: #### C YTONON ####MARIA STEIN LABORATORYCLIA [id number] [address] [facility] FINAL PERFORMING LAB Normal [facility] Comment on above: Order Comment: Speci men Type: SPECIMEN OBTAINED BY ASPIRATIONOrdering Facility: [facility] Address: [address] [place] [address] Result Comment: Tech nical component, observer helper screening performed at [facility], [address] [place] [address] CLIA# [id number] interpretation performed at [facility], [address] [place] [address] CLIA# [id number] Director: Darrius Dsouza M.D. Performed By: #### C YTLADAN ####MARIA STEIN LABORATORYCLIA [id number] [place] [address] [place] [facility] GROSS DESCRIPTION Normal [facility] Comment on above: Order Comment: Speci men Type: SPECIMEN OBTAINED BY ASPIRATIONOrdering Facility: [facility] Address: [address] [place] [address] Result Comment: A. L YMPH NODE FINE NEEDLE [id number] cc clear pink CytoLyt with scant particles. ThinPrep and Cell Block prepared and 2 smears (1 air dried and 1 fixed).B. PANCREAS FINE NEEDLE [id number] cc clear colorless CytoLyt with scant particles. ThinPrep and Cell Block prepared and 4 smears (2 air dried and 2 fixed). Performed By: #### C YTLADAN ####[facility] STE[facility] LABORATORYCLIA [id number] [place] [address] [place] Comprehensive metabolic 2000 panelon 08-13-2023 Albumin [Mass/Vol] 3.8 g/dL Low 3.9-4.[address] [facility] Comment on above: Order Comment: Speci men Type: BLOOD SPECIMENOrdering Facility: [facility] Address: [address] [place] [address] Performed By: #### 1 9123-9, 35625-2, 2777- ####MAR[facility] STEIN LABORATORYCLIA [id number] [place] [address] [place] ALP [Catalytic activity/Vol] 128 U/L High 38-113 [facility] Comment on above: Order Comment: Speci men Type: BLOOD SPECIMENOrdering Facility: [facility] Address: [address] [place] [address] Performed By: #### 1 9123-9, 71486-3, 2777-1 ####MARIA STEIN LABORATORYCLIA [id number] [address] [place] ALT [Catalytic activity/Vol] 19 U/L Normal 10-54 [facility] Comment on above: Order Comment: Speci men Type: BLOOD SPECIMENOrdering Facility: [facility] Address: [address] [place] [address] Performed By: #### 1 9123-9, 92470-9, 2776- ####MAR[facility] STEIN LABORATORYCLIA [id number] [place] [address] [place] Anion gap [Moles/Vol] 12 mmol/L Normal 9-18 [facility] Comment on above: Order Comment: Speci men Type: BLOOD SPECIMENOrdering Facility: [facility] Address: [address] [place] [address] Performed By: #### 1 9123-9, 39936-4, 2776- ####MAR[facility] STEIN LABORATORYCLIA [id number] [place] [address] [place] AST [Catalytic activity/Vol] 22 U/L Normal 14-40 [facility] Comment on above: Order Comment: Speci men Type: BLOOD SPECIMENOrdering Facility: [facility] Address: [address] [place] [address] Performed By: #### 1 9123-9, , 2776- ####MARIA STEIN LABORATORYCLIA [id number] [place] [id number] [place] Bilirubin [Mass/Vol] 1.0 mg/dL Normal 0.2-1.3 [facility] Comment on above: Order Comment: Speci men Type: BLOOD SPECIMENOrdering Facility: [facility] Address: [address] [place] [address] Performed By: #### 1 9123-9, 08557-7, 2776- ####MAR[facility] STEIN LABORATORYCLIA [id number] [place] [address] [place] Calcium [Mass/Vol] 9.5 mg/dL Normal 8.5-10.[address] [facility] Comment on above: Order Comment: Speci men Type: BLOOD SPECIMENOrdering Facility: [facility] Address: [address] [place] [address] Performed By: #### 1 9123-9, 77603-0, 2776- ####MARIA STEIN LABORATORYCLIA [id number] [place] [address] [place] Chloride [Moles/Vol] 95 mmol/L Low 97-105 [facility] Comment on above: Order Comment: Speci men Type: BLOOD SPECIMENOrdering Facility: [facility] Address: [address] [place] [address] Performed By: #### 1 9123-9, 04450-3, 2776-08 ####[facility] LABORATORYCLIA [id number] [place] [id number] [place] CO2 [Moles/Vol] 29 mmol/L Normal 22-30 [facility] Comment on above: Order Comment: Speci men Type: BLOOD SPECIMENOrdering Facility: [facility] Address: [address] [place] [address] Performed By: #### 1 9123-9, , 2776-08 ####[facility] LABORATORYCLIA [id number] [address] [place] [facility] Creatinine [Mass/Vol] 1.19 mg/dL Normal 0.73-1.22 [facility] Comment on above: Order Comment: Speci men Type: BLOOD SPECIMENOrdering Facility: [facility] Address: [address] [place] [address] Performed By: #### 1 9123-9, , 2776-08 ####[facility] LABORATORYCLIA [id number] [address] Creatinine and Glomerular filtration rate.predicted panel (S/P/Bld) 67 mL/min/1.73m??? Normal >=60 [facility] Comment on above: Order Comment: Speci men Type: BLOOD SPECIMENOrdering Facility: [facility] Address: [address] [place] [address] Result Comment: Bailey mated Glomerular Filtration Rate [...] actual GFR. Performed By: #### 1 9123-9, 34662-8, 2776-08 ####[facility] LABORATORYCLIA [id number] [place] [id number] [place] Glucose [Mass/Vol] 124 mg/dL High 74-[address] [facility] Comment on above: Order Comment: Speci men Type: BLOOD SPECIMENOrdering Facility: [facility] Address: [address] [place] [address] Result Comment: The [place] Diabetes [employer] (ADA) provides guidance for cutoff [...] Standards of Medical Care in Diabetes 2016, [place] [employer]. Diabetes Care. 2016.39(Suppl 1). Performed By: #### 1 9123-9, , 2776-08 ####[facility] LABORATORYCLIA [id number] [place] [id number] [place] Potassium [Moles/Vol] 3.5 mmol/L Low 3.7-5.1 [facility] Comment on above: Order Comment: Speci men Type: BLOOD SPECIMENOrdering Facility: [facility] Address: [address] [place] [address] Performed By: #### 1 9123-9, , 2776-08 ####[facility] LABORATORYCLIA [id number] [place] [id number] [place] Protein [Mass/Vol] 7.6 g/dL Normal 6.3-8.[address] [facility] Comment on above: Order Comment: Speci men Type: BLOOD SPECIMENOrdering Facility: [facility] Address: [address] [place] [address] Performed By: #### 1 9123-9, , 2776-08 ####MAR[facility] STEIN LABORATORYCLIA [id number] [place] [address] [place] Sodium [Moles/Vol] 136 mmol/L Normal 136-[address] [facility] Comment on above: Order Comment: Speci men Type: BLOOD SPECIMENOrdering Facility: [facility] Address: [place] [address] Performed By: #### 1 9123-9, 82311-2, 2777-1 ####[facility] STEIN LABORATORYCLIA [id number] [place] [id number] [place] Urea nitrogen [Mass/Vol] 37 mg/dL High 9-24 [facility] Comment on above: Order Comment: Speci men Type: BLOOD SPECIMENOrdering Facility: [facility] Address: [place] [address] Performed By: #### 1 9123-9, 99178-9, 2777- ####MAR[facility] STEIN LABORATORYCLIA [id number] [place] [id number] [place] HISTORY PHYSICALon HISTORY PHYSICAL Normal [facility] Magnesium SerPl-ncon 08-13 Magnesium [Mass/Vol] 2.2 mg/dL Normal 1.7-2.3 [facility] Comment on above: Order Comment: Speci men Type: BLOOD SPECIMENOrdering Facility: [facility] Address: [place] [address] Performed By: #### 1 9123-9, 89641-9, 2777- ####[facility] STEIN LABORATORYCLIA [id number] [place] [id number] [place] NURSING PROGon 08-13-2023 NURSING PROG Normal [facility] NURSING PROG Normal [facility] NURSING PROG Normal [facility] NUTRITIONon 08-13-2023 NUTRITION Normal [facility] Phosphate SerPl-mCncon 08-13 Phosphate [Mass/Vol] 3.2 mg/dL Normal 2.7-4.8 [facility] Comment on above: Order Comment: Speci men Type: BLOOD SPECIMENOrdering Facility: [facility] Address: [place] [address] Performed By: #### 1 9123-9, 85014-3, 2777-1 ####[facility] STEIN LABORATORYCLIA [id number] [address] [place] [facility] SURGICAL PATHOLOGYon 023 CASE REPORT Normal [facility] Comment on above: Order Comment: Speci men Type: TISSUE SPECIMENOrdering Facility: [facility] Address: [address] [place] [address] Result Comment: Surg ical Pathology Report Case: [id number] Provider: Stephanie Avery MD Collected: 08/13/2023 11:14 AMOrdering Location: [facility] Received: 08/13/2023 01:36 PM Endoscopy - ENDOPathologist: Robby Jorgensen MD, PhDSpecimens: A) - PANCREAS BIOPSY, core needle biopsy of uncinate process to r/o neuro endocrine tumor B) - LYMPH NODE BIOPSY, core needle biopsy of portal lymph node Performed By: #### S ####[facility] LABCLIA [id number] [address] DIAGNOSIS COMMENT Normal [facility] Comment on above: Order Comment: Speci men Type: TISSUE SPECIMENOrdering Facility: [facility] Address: [address] [place] [address] Result Comment: Manny romo Developed Test (LDT) Disclaimer:Performance characteristics of immunohistochemical, immunofluorescent and chromogenic in-situ hybridization tests have been determined by the performing laboratory within [facility]???s [facility] [place] ([facility], [facility], [facility], [facility], [facility], [facility], or [facility]) in a manner consistent with CLIA requirements. One or more of these tests have not been cleared or approved by the FDA. RT-PL[facility] is regulated under CLIA as qualified to perform high-complexity testing. These tests are used for clinical purposes. They should not be regarded as investigational or for research. Positive and negative controls stain appropriately. Performed By: #### S ####[facility] LABCLIA [id number] [address] [place] FINAL DIAGNOSIS Normal [facility] Comment on above: Order Comment: Specbrooks suarez Type: TISSUE SPECIMENOrdering Facility: [facility] Address: [address] [place] [address] Result Comment: A. 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 Lymph node, biopsy:-Predominantly hemorrhage admixed with some lymphoid tissue and smooth muscle.-No evidence of neoplasm in this material. Performed By: #### S ####[facility] LABCLIA [id number] [address] [place] [facility] FINAL PERFORMING LAB Normal [facility] Comment on above: Order Comment: Specbrooks suarez Type: TISSUE SPECIMENOrdering Facility: [facility] Address: [address] [place] [address] Result Comment: Diag nostic interpretation performed at [facility], [address] [place] [address] CLIA# [id number] Director: Taras Treadwell M.D. Performed By: #### S ####[facility] LABCLIA [id number] [address] [place] GROSS DESCRIPTION Normal [facility] Comment on above: Order Comment: Arben suarez Type: TISSUE SPECIMENOrdering Facility: [facility] Address: [address] [place] [address] Result Comment: A. P ANCREAS BIOPSYReceived in [...] submitted in one cassette.Gross examination performed at [facility], [address] [place] [address].AMS August 13, 2023 6:15 PM Performed By: #### S ####[facility] LABCLIA [id number] [facility]Ann [facility]ALK [id number] [place], [place] [id number] [place]on 08-13-2023 [place] Normal [facility] XR ABDOMEN 1V SUPINEon 08-13 XR ABDOMEN 1V SUPINE Normal [facility] Bilirub Conj SerPl-mCncon Bilirubin.conjugated [Mass/Vol] 0.4 mg/dL High <0.2 [facility] Comment on above: Order Comment: Speci men Type: BLOOD SPECIMENOrdering Facility: [facility] Address: [address] [place] [address] Performed By: #### 1 5152-2, 33026-9, 2571-8, 14252-9 ####MAR[facility] STEIN LABORATORYCLIA [id number] [place] [id number] [facility] [place] CASE MANAGEMon 08-12-2023 CASE MANAGEM Normal [facility] CBC panel Auto (Bld)on 08-12 Erythrocyte distribution width (RBC) [Ratio] 11.9 % Normal 11.5-15.0 [facility] Comment on above: Order Comment: Speci men Type: BLOOD SPECIMENOrdering Facility: [facility] Address: [address] [place] [address] Performed By: #### 5 8410-2 ####[facility] STEIN LABORATORYCLIA [id number] [place] [id number] [place] Hematocrit (Bld) [Volume fraction] 44.8 % Normal 39.0-51.0 [facility] Comment on above: Order Comment: Speci men Type: BLOOD SPECIMENOrdering Facility: [facility] Address: [address] [place] [address] Performed By: #### 5 8410-2 ####MAR[facility] STEIN LABORATORYCLIA [id number] [place] [id number] [place] Hemoglobin (Bld) [Mass/Vol] 14.9 g/dL Normal 13.0-17.0 [facility] Comment on above: Order Comment: Speci men Type: BLOOD SPECIMENOrdering Facility: [facility] Address: [address] [place] [address] Performed By: #### 5 8410-2 ####[facility] LABORATORYCLIA [id number] [address] STATES [facility] MCH (RBC) [Entitic mass] 29.2 pg Normal 26.0-34.0 [facility] Comment on above: Order Comment: Speci men Type: BLOOD SPECIMENOrdering Facility: [facility] Address: [address] [place] [address] Performed By: #### 5 8410-2 ####[facility] LABORATORYCLIA [id number] [address] [place] MCHC (RBC) [Mass/Vol] 33.3 g/dL Normal 30.5-36.0 [facility] Comment on above: Order Comment: Speci men Type: BLOOD SPECIMENOrdering Facility: [facility] Address: [address] [place] [address] Performed By: #### 5 8410-2 ####[facility] LABORATORYCLIA [id number] [address] MCV (RBC) [Entitic vol] 87.7 fL Normal 80.0-100.0 [facility] Comment on above: Order Comment: Speci men Type: BLOOD SPECIMENOrdering Facility: [facility] Address: [address] [place] [address] Performed By: #### 5 8410-2 ####[facility] LABORATORYCLIA [id number] [address] [place] Nucleated RBC (Bld) [#/Vol] 10*3/uL Normal <0.01 [facility] Comment on above: Order Comment: Speci men Type: BLOOD SPECIMENOrdering Facility: [facility] Address: [address] [place] [address] Performed By: #### 5 8410-2 ####[facility] LABORATORYCLIA [id number] [place] [address] [place] Platelet mean volume (Bld) [Entitic vol] 11.2 fL Normal 9.0-12.7 [facility] Comment on above: Order Comment: Speci men Type: BLOOD SPECIMENOrdering Facility: [facility] Address: [address] [place] [address] Performed By: #### 5 8410-2 ####[facility] STEIN LABORATORYCLIA [id number] [place] [id number] [place] Platelets (Bld) [#/Vol] 273 10*3/uL Normal 150-400 [facility] Comment on above: Order Comment: Speci men Type: BLOOD SPECIMENOrdering Facility: [facility] Address: [address] [place] [address] Performed By: #### 5 8410-2 ####MAR[facility] STEIN LABORATORYCLIA [id number] [place] [address] [place] RBC (Bld) [#/Vol] 5.11 10*6/uL Normal 4.20-6.00 [facility] Comment on above: Order Comment: Speci men Type: BLOOD SPECIMENOrdering Facility: [facility] Address: [address] [place] [address] Performed By: #### 5 8410-2 ####[facility] STE[facility] LABORATORYCLIA [id number] [place] [id number] [place] WBC (Bld) [#/Vol] 11.13 10*3/uL High 3.70-11.00 [facility] Comment on above: Order Comment: Speci men Type: BLOOD SPECIMENOrdering Facility: [facility] Address: [address] [place] [address] Performed By: #### 5 8410-2 ####[facility] STEIN LABORATORYCLIA [id number] [place] [id number] [place] Comprehensive metabolic 2000 panelon 08-12-2023 Albumin [Mass/Vol] 3.7 g/dL Low 3.9-4.[address] [facility] Comment on above: Order Comment: Speci men Type: BLOOD SPECIMENOrdering Facility: [facility] Address: [address] [place] [address] Performed By: #### 1 5152-2, 57826-6, 2571-8, 13850-4 ####[facility] LABORATORYCLIA [id number] [place] [address] [place] ALP [Catalytic activity/Vol] 124 U/L High 38-113 [facility] Comment on above: Order Comment: Speci men Type: BLOOD SPECIMENOrdering Facility: [facility] Address: [address] [place] [address] Performed By: #### 1 5152-2, 61196-2, 2570-8, 31694-5 ####[facility] LABORATORYCLIA [id number] [place] [id number] [place] ALT [Catalytic activity/Vol] 19 U/L Normal 10-54 [facility] Comment on above: Order Comment: Speci men Type: BLOOD SPECIMENOrdering Facility: [facility] Address: [address] [place] [address] Performed By: #### 1 5152-2, 62775-7, 2570-8, 91544-5 ####[facility] LABORATORYCLIA [id number] [place] [address] [place] Anion gap [Moles/Vol] 15 mmol/L Normal 9-18 [facility] Comment on above: Order Comment: Speci men Type: BLOOD SPECIMENOrdering Facility: [facility] Address: [address] [place] [address] Performed By: #### 1 5152-2, 81493-0, 2570-8, 52041-8 ####[facility] LABORATORYCLIA [id number] [place] [address] [place] AST [Catalytic activity/Vol] 22 U/L Normal 14-40 [facility] Comment on above: Order Comment: Speci men Type: BLOOD SPECIMENOrdering Facility: [facility] Address: [address] [place] [address] Performed By: #### 1 5152-2, 92711-8, 2570-8, 76983-7 ####[facility] LABORATORYCLIA [id number] [place] [address] [place] Bilirubin [Mass/Vol] 1.1 mg/dL Normal 0.2-1.3 [facility] Comment on above: Order Comment: Speci men Type: BLOOD SPECIMENOrdering Facility: [facility] Address: [address] [place] [address] Performed By: #### 1 5152-2, 14395-4, 2570-8, 45175-8 ####[facility] STE[facility] LABORATORYCLIA [id number] [place] [address] [place] Calcium [Mass/Vol] 9.6 mg/dL Normal 8.5-10.[address] [facility] Comment on above: Order Comment: Speci men Type: BLOOD SPECIMENOrdering Facility: [facility] Address: [address] [place] [address] Performed By: #### 1 5152-2, 20073-6, 8, 43480-1 ####[facility] STE[facility] LABORATORYCLIA [id number] [place] [address] [place] Chloride [Moles/Vol] 96 mmol/L Low 97-105 [facility] Comment on above: Order Comment: Speci men Type: BLOOD SPECIMENOrdering Facility: [facility] Address: [address] [place] [address] Performed By: #### 1 5152-2, 05239-9, 2570-8, 57904-2 ####[facility] STE[facility] LABORATORYCLIA [id number] [place] [id number] [place] CO2 [Moles/Vol] 26 mmol/L Normal 22-30 [facility] Comment on above: Order Comment: Speci men Type: BLOOD SPECIMENOrdering Facility: [facility] Address: [address] [place] [address] Performed By: #### 1 5152-2, 52289-7, 2570-8, 51511-1 ####[facility] LABORATORYCLIA [id number] [place] [address] [place] Creatinine [Mass/Vol] 1.28 mg/dL High 0.73-1.22 [facility] Comment on above: Order Comment: Arben suarez Type: BLOOD SPECIMENOrdering Facility: [facility] Address: [address] [place] [address] Performed By: #### 1 5152-2, 27107-1, 2570-8, 06124-7 ####[facility] STE[facility] LABORATORYCLIA [id number] [place] [address] [place] Creatinine and Glomerular filtration rate.predicted panel (S/P/Bld) 61 mL/min/1.73m??? Normal >=60 [facility] Comment on above: Order Comment: Arben suarez Type: BLOOD SPECIMENOrdering Facility: [facility] Address: [address] [place] [address] Result Comment: Bailey mated Glomerular Filtration Rate [...] actual GFR. Performed By: #### 1 5152-2, 65559-6, 2570-8, 38660-4 ####[facility] LABORATORYCLIA [id number] [place] [id number] [place] Glucose [Mass/Vol] 110 mg/dL High 74-[address] [facility] Comment on above: Order Comment: Arben suarez Type: BLOOD SPECIMENOrdering Facility: [facility] Address: [address] [place] [address] Result Comment: The [place] Diabetes Association (ADA) provides guidance for cutoff [...] Standards of Medical Care in Diabetes 2016, [place] [employer]. Diabetes Care. 2016.39(Suppl 1). Performed By: #### 1 5152-2, 28215-0, 8, ####[facility] LABORATORYCLIA [id number] [place] [address] [place] Potassium [Moles/Vol] 3.7 mmol/L Normal 3.7-5.1 [facility] Comment on above: Order Comment: Speci men Type: BLOOD SPECIMENOrdering Facility: [facility] Address: [address] [place] [address] Performed By: #### 1 5152-2, 48291-7, 2571-03, ####[facility] LABORATORYCLIA [id number] [place] [id number] [place] Protein [Mass/Vol] 7.8 g/dL Normal 6.3-8.[address] [facility] Comment on above: Order Comment: Speci men Type: BLOOD SPECIMENOrdering Facility: [facility] Address: [address] [place] [address] Performed By: #### 1 5152-2, 97576-8, 2571-03, ####[facility] LABORATORYCLIA [id number] [place] [id number] [place] Sodium [Moles/Vol] 137 mmol/L Normal 136-[address] [facility] Comment on above: Order Comment: Speci men Type: BLOOD SPECIMENOrdering Facility: [facility] Address: [address] [place] [address] Performed By: #### 1 5152-2, 23402-4, 2571-03, 36567-3 ####[facility] LABORATORYCLIA [id number] [place] [id number] [place] Urea nitrogen [Mass/Vol] 35 mg/dL High 9-24 [facility] Comment on above: Order Comment: Speci men Type: BLOOD SPECIMENOrdering Facility: [facility] Address: [address] [place] [address] Performed By: #### 1 5152-2, 19780-0, 2571-03, 10647-8 ####[facility] LABORATORYCLIA [id number] [place] [address] [facility] Magnesium SerPl-mCncon 08-12 Magnesium [Mass/Vol] 2.1 mg/dL Normal 1.7-2.3 [facility] Comment on above: Order Comment: Speci men Type: BLOOD SPECIMENOrdering Facility: [facility] Address: [address] [place] [address] Performed By: #### 1 5152-2, 45052-9, 2571-03, ####[facility] LABORATORYCLIA [id number] [address] [place] NURSING PROGon 08-12-2023 NURSING PROG Normal [facility] NUTRITIONon 08-12-2023 NUTRITION Normal [facility] Phosphate SerPl-mCncon 08-12 Phosphate [Mass/Vol] 3.2 mg/dL Normal 2.7-4.8 [facility] Comment on above: Order Comment: Speci men Type: BLOOD SPECIMENOrdering Facility: [facility] Address: [address] [place] [address] Performed By: #### 2 777-1 ####[facility] LABORATORYCLIA [id number] [place] [id number] [facility] Trigl SerPl-mCncon Triglyceride [Mass/Vol] 69 mg/dL Normal <150 [facility] Comment on above: Order Comment: Speci men Type: BLOOD SPECIMENOrdering Facility: [facility] Address: [address] [place] [address] Result Comment: <150 mg/dL, Normal 150-199 mg/dL, Borderline high 200-499 mg/dL, High>499 mg/dL, Very highReference:1. National Cholesterol Education Program ATP III Guideline At-A-Glance Quick Desk Reference: National Heart, Lung, and Blood [place]. National Institutes of Health. 2001: NIH Publication No. 01-3305. Performed By: #### 1 5152-2, 39216-8, 2571-03, ####MARIA STEIN LABORATORYCLIA [id number] [place] [address] [place] Triglyceride [Mass/Vol]on FASTING TIME 0 hrs Normal [facility] Comment on above: Order Comment: Speci men Type: BLOOD SPECIMENOrdering Facility: [facility] Address: [address] [place] [address] Performed By: #### 1 5152-2, 93902-3, 2571-8, 69783-5 ####MARIA STEIN LABORATORYCLIA [id number] [place] [address] [place] CASE MANAGEMon 08-11-2023 CASE MANAGEM Normal [facility] CRP SerPl-mCncon 08-11-2023 CRP [Mass/Vol] 4.0 mg/dL High <0.9 [facility] Comment on above: Order Comment: Speci men Type: BLOOD SPECIMENOrdering Facility: [facility] Address: [address] [place] [address] Performed By: #### 2 4323-8, 1987-12, 2776-08, ####MARIA STEIN LABORATORYCLIA [id number] [place] [id number] [place] Comprehensive metabolic 2000 panelon 08-11-2023 Albumin [Mass/Vol] 3.8 g/dL Low 3.9-4.[address] [facility] Comment on above: Order Comment: Speci men Type: BLOOD SPECIMENOrdering Facility: [facility] Address: [address] [place] [id number] Performed By: #### 2 4323-8, 1987-12, 2776-08, ####MARIA STEIN LABORATORYCLIA [id number] [place] [address] [place] ALP [Catalytic activity/Vol] 107 U/L Normal 38-113 [facility] Comment on above: Order Comment: Speci men Type: BLOOD SPECIMENOrdering Facility: [facility] Address: [address] [place] [address] Performed By: #### 2 4323-8, 1987-12, 2776-08, ####MARIA STEIN LABORATORYCLIA [id number] [place] [address] [place] ALT [Catalytic activity/Vol] 17 U/L Normal 10-54 [facility] Comment on above: Order Comment: Speci men Type: BLOOD SPECIMENOrdering Facility: [facility] Address: [place] [address] Performed By: #### 2 4328, 1987-12, 2776-08, ####[facility] LABORATORYCLIA [id number] [place] [address] [place] Anion gap [Moles/Vol] 16 mmol/L Normal 9-18 [facility] Comment on above: Order Comment: Speci men Type: BLOOD SPECIMENOrdering Facility: [facility] Address: [address] [place] [address] Performed By: #### 2 4328, 1987-12, 2776-08, ####MARIA STEIN LABORATORYCLIA [id number] [place] [id number] [place] AST [Catalytic activity/Vol] 15 U/L Normal 14-40 [facility] Comment on above: Order Comment: Speci men Type: BLOOD SPECIMENOrdering Facility: [facility] Address: [place] [address] Performed By: #### 2 4328, 1987-12, 2776-08, ####[facility] LABORATORYCLIA [id number] [place] [id number] [place] Bilirubin [Mass/Vol] 1.0 mg/dL Normal 0.2-1.3 [facility] Comment on above: Order Comment: Speci men Type: BLOOD SPECIMENOrdering Facility: [facility] Address: [address] [place] [address] Performed By: #### 2 4328, 1987-12, 2776-08, ####MARIA STEIN LABORATORYCLIA [id number] [place] [address] [place] Calcium [Mass/Vol] 9.4 mg/dL Normal 8.5-10.[address] [facility] Comment on above: Order Comment: Speci men Type: BLOOD SPECIMENOrdering Facility: [facility] Address: [address] [place] [address] Performed By: #### 2 432-8, 1987-12, 2776-08, ####GEOVANNA LABORATORYCLIA [id number] [place] [address] [place] Chloride [Moles/Vol] 100 mmol/L Normal 97-105 [facility] Comment on above: Order Comment: Speci men Type: BLOOD SPECIMENOrdering Facility: [facility] Address: [address] [place] [address] Performed By: #### 2 4323-8, 1987-12, 2776-08, ####GEOVANNA LABORATORYCLIA [id number] [place] [id number] [place] CO2 [Moles/Vol] 25 mmol/L Normal 22-30 [facility] Comment on above: Order Comment: Speci men Type: BLOOD SPECIMENOrdering Facility: [facility] Address: [address] [place] [address] Performed By: #### 2 4323-8, 1987-12, 2776-08, ####GEOVANNA LABORATORYCLIA [id number] [place] [id number] [place] Creatinine [Mass/Vol] 1.38 mg/dL High 0.73-1.22 [facility] Comment on above: Order Comment: Speci men Type: BLOOD SPECIMENOrdering Facility: [facility] Address: [address] [place] [address] Performed By: #### 2 4323-8, 1987-12, 2776-08, ####[facility] LABORATORYCLIA [id number] [place] [id number] [place] Creatinine and Glomerular filtration rate.predicted panel (S/P/Bld) 56 mL/min/1.73m??? Low >=60 [facility] Comment on above: Order Comment: Speci men Type: BLOOD SPECIMENOrdering Facility: [facility] Address: [address] [place] [address] Result Comment: Bailey mated Glomerular Filtration Rate [...] Performed By: #### 2 4323, 1987-12, 2776-08, ####[facility] LABORATORYCLIA [id number] [place] [id number] [place] Glucose [Mass/Vol] 123 mg/dL High 74-[address] [facility] Comment on above: Order Comment: Arben suarez Type: BLOOD SPECIMENOrdering Facility: [facility] Address: [address] [place] [address] Result Comment: The [place] [employer] (ADA) provides guidance for cutoff [...] Standards of Medical Care in Diabetes 2016, [place] [employer]. Diabetes Care. 2016.39(Suppl 1). Performed By: #### 2 43210-30, 1987-12, 2776-08, ####GEOVANNA LABORATORYCLIA [id number] [place] [address] [place] Potassium [Moles/Vol] 3.3 mmol/L Low 3.7-5.1 [facility] Comment on above: Order Comment: Arben suarez Type: BLOOD SPECIMENOrdering Facility: [facility] Address: [address] [place] [address] Performed By: #### 2 43210-30, 1987-12, 2776-08, ####MARIA STEIN LABORATORYCLIA [id number] [place] [address] [place] Protein [Mass/Vol] 7.5 g/dL Normal 6.3-8.[address] [facility] Comment on above: Order Comment: Speci men Type: BLOOD SPECIMENOrdering Facility: [facility] Address: [address] [place] [address] Performed By: #### 2 4323-8, 1987-12, 2776-08, ####MARIA STEIN LABORATORYCLIA [id number] [place] [id number] [place] Sodium [Moles/Vol] 141 mmol/L Normal 136-[address] [facility] Comment on above: Order Comment: Speci men Type: BLOOD SPECIMENOrdering Facility: [facility] Address: [address] [place] [address] Performed By: #### 2 4328, 1987-12, 2776-08, ####MARIA STEIN LABORATORYCLIA [id number] [place] [id number] [place] Urea nitrogen [Mass/Vol] 32 mg/dL High 9-24 [facility] Comment on above: Order Comment: Speci men Type: BLOOD SPECIMENOrdering Facility: [facility] Address: [address] [place] [address] Performed By: #### 2 4323-8, 1987-12, 2776-08, ####MARIA STEIN LABORATORYCLIA [id number] [place] [id number] [place] Magnesium SerPl-mCncon 08-11 Magnesium [Mass/Vol] 2.1 mg/dL Normal 1.7-2.3 [facility] Comment on above: Order Comment: Speci men Type: BLOOD SPECIMENOrdering Facility: [facility] Address: [address] [place] [address] Performed By: #### 2 4323-8, 1987-12, 2776-08, ####MARIA STEIN LABORATORYCLIA [id number] [place] [address] [place] NUTRITIONon 08-11-2023 NUTRITION Normal [facility] Phosphate SerPl-mCncon 08-11 Phosphate [Mass/Vol] 3.9 mg/dL Normal 2.7-4.8 [facility] Comment on above: Order Comment: Speci men Type: BLOOD SPECIMENOrdering Facility: [facility] Address: [address] [place] [address] Performed By: #### 2 4323-8, 1987-5, 2777-1, 40230-2 ####MARIA STEIN LABORATORYCLIA [id number] [place] [id number] [place] CBC W Auto Differential pane l (Bld)on 08-10-2023 Basophils (Bld) [#/Vol] 0.04 10*3/uL Normal <0.11 [facility] Comment on above: Order Comment: Speci men Type: BLOOD SPECIMENOrdering Facility: [facility] Address: [address] [place] [address] Performed By: #### 5 7021-8 ####MARIA STEIN LABORATORYCLIA [id number] [place] [id number] [place] Basophils/100 WBC (Bld) 0.4 % Normal [facility] Comment on above: Order Comment: Speci men Type: BLOOD SPECIMENOrdering Facility: [facility] Address: [address] [place] [address] Performed By: #### 5 7021-8 ####MARIA STEIN LABORATORYCLIA [id number] [place] [id number] [place] Differential cell count method Nom (Bld) Auto Normal [facility] Comment on above: Order Comment: Speci men Type: BLOOD SPECIMENOrdering Facility: [facility] Address: [address] [place] [address] Performed By: #### 5 7021-8 ####MARIA STEIN LABORATORYCLIA [id number] [place] [id number] [place] Eosinophils (Bld) [#/Vol] 0.21 10*3/uL Normal <0.46 [facility] Comment on above: Order Comment: Speci men Type: BLOOD SPECIMENOrdering Facility: [facility] Address: [address] [place] [address] Performed By: #### 5 7021-8 ####[facility] LABORATORYCLIA [id number] [place] [id number] [place] Eosinophils/100 WBC (Bld) 1.9 % Normal [facility] Comment on above: Order Comment: Speci men Type: BLOOD SPECIMENOrdering Facility: [facility] Address: [address] [place] [address] Performed By: #### 5 7021-8 ####[facility] LABORATORYCLIA [id number] [place] [address] [place] Erythrocyte distribution width (RBC) [Ratio] 12.1 % Normal 11.5-15.0 [facility] Comment on above: Order Comment: Speci men Type: BLOOD SPECIMENOrdering Facility: [facility] Address: [address] [place] [address] Performed By: #### 5 7021-8 ####[facility] LABORATORYCLIA [id number] [address] [place] Hematocrit (Bld) [Volume fraction] 41.9 % Normal 39.0-51.0 [facility] Comment on above: Order Comment: Speci men Type: BLOOD SPECIMENOrdering Facility: [facility] Address: [address] [place] [address] Performed By: #### 5 7021-8 ####GEOVANNA LABORATORYCLIA [id number] [place] [address] [place] Hemoglobin (Bld) [Mass/Vol] 14.3 g/dL Normal 13.0-17.0 [facility] Comment on above: Order Comment: Speci men Type: BLOOD SPECIMENOrdering Facility: [facility] Address: [address] [place] [address] Performed By: #### 5 7021-8 ####[facility] LABORATORYCLIA [id number] [address] [place] Immature granulocytes (Bld) [#/Vol] 0.05 10*3/uL Normal <0.10 [facility] Comment on above: Order Comment: Speci men Type: BLOOD SPECIMENOrdering Facility: [facility] Address: [address] [place] [address] Performed By: #### 5 7021-8 ####[facility] LABORATORYCLIA [id number] [place] [address] [place] Immature granulocytes/100 WBC (Bld) 0.4 % Normal [facility] Comment on above: Order Comment: Speci men Type: BLOOD SPECIMENOrdering Facility: [facility] Address: [address] [place] [address] Performed By: #### 5 7021-8 ####[facility] LABORATORYCLIA [id number] [place] [address] [place] Lymphocytes (Bld) [#/Vol] 0.93 10*3/uL Low 1.00-4.00 [facility] Comment on above: Order Comment: Speci men Type: BLOOD SPECIMENOrdering Facility: [facility] Address: [address] [place] [address] Performed By: #### 5 7021-8 ####[facility] LABORATORYCLIA [id number] [address] [place] Lymphocytes/100 WBC (Bld) 8.4 % Normal [facility] Comment on above: Order Comment: Speci men Type: BLOOD SPECIMENOrdering Facility: [facility] Address: [address] [place] [address] Performed By: #### 5 7021-8 ####GEOVANNA LABORATORYCLIA [id number] [place] [address] [place] MCH (RBC) [Entitic mass] 29.9 pg Normal 26.0-34.0 [facility] Comment on above: Order Comment: Speci men Type: BLOOD SPECIMENOrdering Facility: [facility] Address: [address] [place] [address] Performed By: #### 5 7021-8 ####[facility] LABORATORYCLIA [id number] [place] [address] [place] MCHC (RBC) [Mass/Vol] 34.1 g/dL Normal 30.5-36.0 [facility] Comment on above: Order Comment: Speci men Type: BLOOD SPECIMENOrdering Facility: [facility] Address: [address] [place] [address] Performed By: #### 5 7021-8 ####GEOVANNA LABORATORYCLIA [id number] [place] [id number] [place] MCV (RBC) [Entitic vol] 87.7 fL Normal 80.0-100.0 [facility] Comment on above: Order Comment: Speci men Type: BLOOD SPECIMENOrdering Facility: [facility] Address: [address] [place] [address] Performed By: #### 5 7021-8 ####[facility] LABORATORYCLIA [id number] [place] [id number] [place] Monocytes (Bld) [#/Vol] 1.28 10*3/uL High <0.87 [facility] Comment on above: Order Comment: Speci men Type: BLOOD SPECIMENOrdering Facility: [facility] Address: [address] [place] [address] Performed By: #### 5 7021-8 ####[facility] LABORATORYCLIA [id number] [place] [id number] [place] Monocytes/100 WBC (Bld) 11.5 % Normal [facility] Comment on above: Order Comment: Speci men Type: BLOOD SPECIMENOrdering Facility: [facility] Address: [address] [place] [address] Performed By: #### 5 7021-8 ####GEOVANNA LABORATORYCLIA [id number] [place] [id number] [place] Neutrophils (Bld) [#/Vol] 8.62 10*3/uL High 1.45-7.50 [facility] Comment on above: Order Comment: Speci men Type: BLOOD SPECIMENOrdering Facility: [facility] Address: [address] [place] [address] Performed By: #### 5 7021-8 ####[facility] LABORATORYCLIA [id number] [place] [id number] [place] Neutrophils/100 WBC (Bld) 77.4 % Normal [facility] Comment on above: Order Comment: Speci men Type: BLOOD SPECIMENOrdering Facility: [facility] Address: [address] [place] [address] Performed By: #### 5 7021-8 ####[facility] LABORATORYCLIA [id number] [place] [address] [place] Nucleated RBC (Bld) [#/Vol] 10*3/uL Normal <0.01 [facility] Comment on above: Order Comment: Speci men Type: BLOOD SPECIMENOrdering Facility: [facility] Address: [address] [place] [address] Performed By: #### 5 7021-8 ####[facility] LABORATORYCLIA [id number] [place] [address] [place] Nucleated RBC/100 WBC (Bld) [Ratio] 0.0 /100 WBC Normal [facility] Comment on above: Order Comment: Speci men Type: BLOOD SPECIMENOrdering Facility: [facility] Address: [address] [place] [address] Performed By: #### 5 7021-8 ####[facility] LABORATORYCLIA [id number] [place] [address] [place] Platelet mean volume (Bld) [Entitic vol] 11.5 fL Normal 9.0-12.7 [facility] Comment on above: Order Comment: Speci men Type: BLOOD SPECIMENOrdering Facility: [facility] Address: [address] [place] [address] Performed By: #### 5 7021-8 ####[facility] LABORATORYCLIA [id number] [place] [address] [place] Platelets (Bld) [#/Vol] 285 10*3/uL Normal 150-400 [facility] Comment on above: Order Comment: Speci men Type: BLOOD SPECIMENOrdering Facility: [facility] Address: [address] [place] [address] Performed By: #### 5 7021-8 ####[facility] LABORATORYCLIA [id number] [place] [id number] [place] RBC (Bld) [#/Vol] 4.78 10*6/uL Normal 4.20-6.00 [facility] Comment on above: Order Comment: Speci men Type: BLOOD SPECIMENOrdering Facility: [facility] Address: [address] [place] [address] Performed By: #### 5 7021-8 ####[facility] LABORATORYCLIA [id number] [place] [id number] [place] WBC (Bld) [#/Vol] 11.13 10*3/uL High 3.70-11.00 [facility] Comment on above: Order Comment: Speci men Type: BLOOD SPECIMENOrdering Facility: [facility] Address: [address] [place] [address] Performed By: #### 5 7021-8 ####MARIA STEIN LABORATORYCLIA [id number] [place] [id number] [place] Comprehensive metabolic 2000 panelon 08-10-2023 Albumin [Mass/Vol] 4.0 g/dL Normal 3.9-4.[address] [facility] Comment on above: Order Comment: Speci men Type: BLOOD SPECIMENOrdering Facility: [facility] Address: [address] [place] [address] Performed By: #### 2 4323-8, , 2776- ####[facility] LABORATORYCLIA [id number] [place] [id number] [place] ALP [Catalytic activity/Vol] 111 U/L Normal 38-113 [facility] Comment on above: Order Comment: Speci men Type: BLOOD SPECIMENOrdering Facility: [facility] Address: [address] [place] [address] Performed By: #### 2 4323-8, , 2776- ####MARIA STEIN LABORATORYCLIA [id number] [place] [id number] [place] ALT [Catalytic activity/Vol] 21 U/L Normal 10-54 [facility] Comment on above: Order Comment: Speci men Type: BLOOD SPECIMENOrdering Facility: [facility] Address: [address] [place] [address] Performed By: #### 2 4323-8, , 2776-08 ####[facility] LABORATORYCLIA [id number] [place] [address] [place] Anion gap [Moles/Vol] 15 mmol/L Normal 9-18 [facility] Comment on above: Order Comment: Speci men Type: BLOOD SPECIMENOrdering Facility: [facility] Address: [address] [place] [address] Performed By: #### 2 4323-8, , 2776-08 ####[facility] LABORATORYCLIA [id number] [place] [id number] [place] AST [Catalytic activity/Vol] 16 U/L Normal 14-40 [facility] Comment on above: Order Comment: Speci men Type: BLOOD SPECIMENOrdering Facility: [facility] Address: [address] [place] [address] Performed By: #### 2 432-8, , 2776-08 ####[facility] LABORATORYCLIA [id number] [place] [id number] [place] Bilirubin [Mass/Vol] 0.7 mg/dL Normal 0.2-1.3 [facility] Comment on above: Order Comment: Speci men Type: BLOOD SPECIMENOrdering Facility: [facility] Address: [address] [place] [address] Performed By: #### 2 4323-8, , 2776-08 ####[facility] LABORATORYCLIA [id number] [place] [id number] [place] Calcium [Mass/Vol] 9.3 mg/dL Normal 8.5-10.[address] [facility] Comment on above: Order Comment: Speci men Type: BLOOD SPECIMENOrdering Facility: [facility] Address: [address] [place] [address] Performed By: #### 2 4323-8, , 2776-08 ####[facility] LABORATORYCLIA [id number] [place] [address] [place] Chloride [Moles/Vol] 100 mmol/L Normal 97-105 [facility] Comment on above: Order Comment: Speci men Type: BLOOD SPECIMENOrdering Facility: [facility] Address: [address] [place] [address] Performed By: #### 2 4323-8, , 2776-08 ####[facility] LABORATORYCLIA [id number] [place] [id number] [place] CO2 [Moles/Vol] 25 mmol/L Normal 22-30 [facility] Comment on above: Order Comment: Speci men Type: BLOOD SPECIMENOrdering Facility: [facility] Address: [address] [place] [address] Performed By: #### 2 4323-8, , 2776-08 ####[facility] LABORATORYCLIA [id number] [place] [id number] [place] [facility] Creatinine [Mass/Vol] 1.34 mg/dL High 0.73-1.22 [facility] Comment on above: Order Comment: Speci men Type: BLOOD SPECIMENOrdering Facility: [facility] Address: [address] [place] [address] Performed By: #### 2 4323-8, , 2776-08 ####[facility] LABORATORYCLIA [id number] [address] [facility] Creatinine and Glomerular filtration rate.predicted panel (S/P/Bld) 58 mL/min/1.73m??? Low >=60 [facility] Comment on above: Order Comment: Speci men Type: BLOOD SPECIMENOrdering Facility: [facility] Address: [address] [place] [address] Result Comment: Bailey mated Glomerular Filtration Rate [...] GFR. Performed By: #### 2 4323-8, 2776-08 ####[facility] LABORATORYCLIA [id number] [place] [address] [place] Glucose [Mass/Vol] 105 mg/dL High 74-[address] [facility] Comment on above: Order Comment: Speci men Type: BLOOD SPECIMENOrdering Facility: [facility] Address: [address] [place] [address] Result Comment: The [place] [employer] (ADA) provides guidance for cutoff [...] Standards of Medical Care in Diabetes 2016, [place] [employer]. Diabetes Care. 2016.39(Suppl 1). Performed By: #### 2 4323-8, , 2776-08 ####[facility] LABORATORYCLIA [id number] [place] [address] [place] Potassium [Moles/Vol] 3.6 mmol/L Low 3.7-5.1 [facility] Comment on above: Order Comment: Speci men Type: BLOOD SPECIMENOrdering Facility: [facility] Address: [address] [place] [address] Performed By: #### 2 4323-8, , 2776-08 ####[facility] LABORATORYCLIA [id number] [place] [address] [place] Protein [Mass/Vol] 7.5 g/dL Normal 6.3-8.[address] [facility] Comment on above: Order Comment: Speci men Type: BLOOD SPECIMENOrdering Facility: [facility] Address: [address] [place] [address] Performed By: #### 2 4323-8, , 2776-08 ####[facility] LABORATORYCLIA [id number] [place] [id number] [place] Sodium [Moles/Vol] 140 mmol/L Normal 136-[address] [facility] Comment on above: Order Comment: Speci men Type: BLOOD SPECIMENOrdering Facility: [facility] Address: [address] [place] [address] Performed By: #### 2 4323-8, 15816-1, 2776-08 ####MARIA STEIN LABORATORYCLIA [id number] [place] [id number] [place] Urea nitrogen [Mass/Vol] 28 mg/dL High 9-24 [facility] Comment on above: Order Comment: Speci men Type: BLOOD SPECIMENOrdering Facility: [facility] Address: [address] [place] [address] Performed By: #### 2 4323-8, , 2776-08 ####MARIA STEIN LABORATORYCLIA [id number] [place] [id number] [place] [facility] [place] [facility] Magnesium [Mass/Vol] 2.0 mg/dL Normal 1.7-2.3 [facility] Comment on above: Order Comment: Speci men Type: BLOOD SPECIMENOrdering Facility: [facility] Address: [address] [place] [address] Performed By: #### 2 4323-8, , 2776-08 ####MARIA STEIN LABORATORYCLIA [id number] [place] [id number] [facility] [place] NURSING PROGon 08-10-2023 NURSING PROG Normal [facility] Phosphate SerPl-mCncon 08-10 Phosphate [Mass/Vol] 3.9 mg/dL Normal 2.7-4.8 [facility] Comment on above: Order Comment: Speci men Type: BLOOD SPECIMENOrdering Facility: [facility] Address: [address] [place] [address] Performed By: #### 2 4323-8, , 2776-08 ####[facility] LABORATORYCLIA [id number] [place] [id number] [place] CBC W Auto Differential pane l (Bld)on 08-09-2023 Basophils (Bld) [#/Vol] 0.06 10*3/uL Normal <0.11 [facility] Comment on above: Order Comment: Speci men Type: BLOOD SPECIMENOrdering Facility: [facility] Address: [address] [place] [address] Performed By: #### 5 7021-8 ####[facility] LABORATORYCLIA [id number] [place] [address] [place] Basophils/100 WBC (Bld) 0.6 % Normal [facility] Comment on above: Order Comment: Speci men Type: BLOOD SPECIMENOrdering Facility: [facility] Address: [address] [place] [address] Performed By: #### 5 7021-8 ####[facility] LABORATORYCLIA [id number] [address] [place] Differential cell count method Nom (Bld) Auto Normal [facility] Comment on above: Order Comment: Speci men Type: BLOOD SPECIMENOrdering Facility: [facility] Address: [address] [place] [address] Performed By: #### 5 7021-8 ####[facility] LABORATORYCLIA [id number] [address] [place] Eosinophils (Bld) [#/Vol] 0.28 10*3/uL Normal <0.46 [facility] Comment on above: Order Comment: Speci men Type: BLOOD SPECIMENOrdering Facility: [facility] Address: [address] [place] [address] Performed By: #### 5 7021-8 ####[facility] LABORATORYCLIA [id number] [place] [address] [place] Eosinophils/100 WBC (Bld) 2.9 % Normal [facility] Comment on above: Order Comment: Speci men Type: BLOOD SPECIMENOrdering Facility: [facility] Address: [address] [place] [address] Performed By: #### 5 7021-8 ####[facility] LABORATORYCLIA [id number] [address] [place] Erythrocyte distribution width (RBC) [Ratio] 11.9 % Normal 11.5-15.0 [facility] Comment on above: Order Comment: Speci men Type: BLOOD SPECIMENOrdering Facility: [facility] Address: [address] [place] [address] Performed By: #### 5 7021-8 ####[facility] LABORATORYCLIA [id number] [place] [id number] [place] Hematocrit (Bld) [Volume fraction] 38.0 % Low 39.0-51.0 [facility] Comment on above: Order Comment: Speci men Type: BLOOD SPECIMENOrdering Facility: [facility] Address: [address] [place] [address] Performed By: #### 5 7021-8 ####[facility] LABORATORYCLIA [id number] [place] [address] [place] Hemoglobin (Bld) [Mass/Vol] 13.0 g/dL Normal 13.0-17.0 [facility] Comment on above: Order Comment: Speci men Type: BLOOD SPECIMENOrdering Facility: [facility] Address: [address] [place] [address] Performed By: #### 5 7021-8 ####[facility] LABORATORYCLIA [id number] [address] OF [place] Immature granulocytes (Bld) [#/Vol] 0.05 10*3/uL Normal <0.10 [facility] Comment on above: Order Comment: Speci men Type: BLOOD SPECIMENOrdering Facility: [facility] Address: [address] [place] [address] Performed By: #### 5 7021-8 ####[facility] LABORATORYCLIA [id number] [address] [place] Immature granulocytes/100 WBC (Bld) 0.5 % Normal [facility] Comment on above: Order Comment: Speci men Type: BLOOD SPECIMENOrdering Facility: [facility] Address: [address] [place] [address] Performed By: #### 5 7021-8 ####[facility] LABORATORYCLIA [id number] [place] [address] [place] Lymphocytes (Bld) [#/Vol] 0.87 10*3/uL Low 1.00-4.00 [facility] Comment on above: Order Comment: Speci men Type: BLOOD SPECIMENOrdering Facility: [facility] Address: [address] [place] [address] Performed By: #### 5 7021-8 ####[facility] LABORATORYCLIA [id number] [address] [place] Lymphocytes/100 WBC (Bld) 9.1 % Normal [facility] Comment on above: Order Comment: Speci men Type: BLOOD SPECIMENOrdering Facility: [facility] Address: [address] [place] [address] Performed By: #### 5 7021-8 ####[facility] LABORATORYCLIA [id number] [place] [address] [place] MCH (RBC) [Entitic mass] 29.8 pg Normal 26.0-34.0 [facility] Comment on above: Order Comment: Speci men Type: BLOOD SPECIMENOrdering Facility: [facility] Address: [address] [place] [address] Performed By: #### 5 7021-8 ####[facility] LABORATORYCLIA [id number] [address] [place] MCHC (RBC) [Mass/Vol] 34.2 g/dL Normal 30.5-36.0 [facility] Comment on above: Order Comment: Speci men Type: BLOOD SPECIMENOrdering Facility: [facility] Address: [address] [place] [address] Performed By: #### 5 7021-8 ####[facility] LABORATORYCLIA [id number] [address] [place] [facility] MCV (RBC) [Entitic vol] 87.2 fL Normal 80.0-100.0 [facility] Comment on above: Order Comment: Speci men Type: BLOOD SPECIMENOrdering Facility: [facility] Address: [address] [place], [place] [address] Performed By: #### 5 7021-8 ####[facility] LABORATORYCLIA [id number] [place] [id number] [place] Monocytes (Bld) [#/Vol] 1.22 10*3/uL High <0.87 [facility] Comment on above: Order Comment: Speci men Type: BLOOD SPECIMENOrdering Facility: [facility] Address: [address] [place] [address] Performed By: #### 5 7021-8 ####[facility] LABORATORYCLIA [id number] [place] [id number] [place] Monocytes/100 WBC (Bld) 12.8 % Normal [facility] Comment on above: Order Comment: Speci men Type: BLOOD SPECIMENOrdering Facility: [facility] Address: [address] [place] [address] Performed By: #### 5 7021-8 ####[facility] LABORATORYCLIA [id number] [place] [address] [place] Neutrophils (Bld) [#/Vol] 7.06 10*3/uL Normal 1.45-7.50 [facility] Comment on above: Order Comment: Speci men Type: BLOOD SPECIMENOrdering Facility: [facility] Address: [address] [place] [address] Performed By: #### 5 7021-8 ####[facility] LABORATORYCLIA [id number] [place] [address] [place] Neutrophils/100 WBC (Bld) 74.1 % Normal [facility] Comment on above: Order Comment: Speci men Type: BLOOD SPECIMENOrdering Facility: [facility] Address: [address] [place] [address] Performed By: #### 5 7021-8 ####[facility] LABORATORYCLIA [id number] [place] [id number] [place] Nucleated RBC (Bld) [#/Vol] 10*3/uL Normal <0.01 [facility] Comment on above: Order Comment: Speci men Type: BLOOD SPECIMENOrdering Facility: [facility] Address: [address] [place] [address] Performed By: #### 5 7021-8 ####[facility] LABORATORYCLIA [id number] [place] [id number] [place] Nucleated RBC/100 WBC (Bld) [Ratio] 0.0 /100 WBC Normal [facility] Comment on above: Order Comment: Speci men Type: BLOOD SPECIMENOrdering Facility: [facility] Address: [address] [place] [address] Performed By: #### 5 7021-8 ####[facility] LABORATORYCLIA [id number] [place] [address] [place] Platelet mean volume (Bld) [Entitic vol] 11.2 fL Normal 9.0-12.7 [facility] Comment on above: Order Comment: Speci men Type: BLOOD SPECIMENOrdering Facility: [facility] Address: [address] [place] [address] Performed By: #### 5 7021-8 ####[facility] LABORATORYCLIA [id number] [place] [id number] [place] Platelets (Bld) [#/Vol] 298 10*3/uL Normal 150-400 [facility] Comment on above: Order Comment: Speci men Type: BLOOD SPECIMENOrdering Facility: [facility] Address: [address] [place] [address] Performed By: #### 5 7021-8 ####[facility] LABORATORYCLIA [id number] [place] [id number] [place] RBC (Bld) [#/Vol] 4.36 10*6/uL Normal 4.20-6.00 [facility] Comment on above: Order Comment: Speci men Type: BLOOD SPECIMENOrdering Facility: [facility] Address: [address] [place] [address] Performed By: #### 5 7021-8 ####[facility] LABORATORYCLIA [id number] [place] [id number] [place] WBC (Bld) [#/Vol] 9.54 10*3/uL Normal 3.70-11.00 [facility] Comment on above: Order Comment: Speci men Type: BLOOD SPECIMENOrdering Facility: [facility] Address: [address] [place] [address] Performed By: #### 5 7021-8 ####[facility] LABORATORYCLIA [id number] [place] [address] [place] Comprehensive metabolic 2000 panelon 08-09-2023 Albumin [Mass/Vol] 3.9 g/dL Normal 3.9-4.[address] [facility] Comment on above: Order Comment: Speci men Type: BLOOD SPECIMENOrdering Facility: [facility] Address: [address] [place] [address] Performed By: #### 2 4323-8, 2776-08, ####[facility] LABORATORYCLIA [id number] [place] [id number] [place] ALP [Catalytic activity/Vol] 110 U/L Normal 38-113 [facility] Comment on above: Order Comment: Speci men Type: BLOOD SPECIMENOrdering Facility: [facility] Address: [address] [place] [address] Performed By: #### 2 4323-8, 2776-08, ####[facility] LABORATORYCLIA [id number] [place] [id number] [place] ALT [Catalytic activity/Vol] 26 U/L Normal 10-54 [facility] Comment on above: Order Comment: Speci men Type: BLOOD SPECIMENOrdering Facility: [facility] Address: [address] [place] [address] Performed By: #### 2 4323-8, 2776-08, ####[facility] LABORATORYCLIA [id number] [place] [id number] [place] Anion gap [Moles/Vol] 11 mmol/L Normal 9-18 [facility] Comment on above: Order Comment: Speci men Type: BLOOD SPECIMENOrdering Facility: [facility] Address: [address] [place] [address] Performed By: #### 2 4323-8, 2776-08, ####[facility] LABORATORYCLIA [id number] [place] [address] [place] AST [Catalytic activity/Vol] 21 U/L Normal 14-40 [facility] Comment on above: Order Comment: Speci men Type: BLOOD SPECIMENOrdering Facility: [facility] Address: [address] [place] [address] Performed By: #### 2 4323-8, 2776-08, ####[facility] LABORATORYCLIA [id number] [place] [id number] [place] Bilirubin [Mass/Vol] 0.6 mg/dL Normal 0.2-1.3 [facility] Comment on above: Order Comment: Speci men Type: BLOOD SPECIMENOrdering Facility: [facility] Address: [address] [place] [address] Performed By: #### 2 4323-8, 2776-08, ####[facility] LABORATORYCLIA [id number] [place] [id number] [place] Calcium [Mass/Vol] 9.4 mg/dL Normal 8.5-10.[address] [facility] Comment on above: Order Comment: Speci men Type: BLOOD SPECIMENOrdering Facility: [facility] Address: [address] [place] [address] Performed By: #### 2 4323-8, 2776-08, ####[facility] LABORATORYCLIA [id number] [place] [id number] [place] Chloride [Moles/Vol] 104 mmol/L Normal 97-105 [facility] Comment on above: Order Comment: Speci men Type: BLOOD SPECIMENOrdering Facility: [facility] Address: [address] [place] [address] Performed By: #### 2 4323-8, 2776-08, ####[facility] LABORATORYCLIA [id number] [place] [id number] [place] CO2 [Moles/Vol] 23 mmol/L Normal 22-30 [facility] Comment on above: Order Comment: Speci men Type: BLOOD SPECIMENOrdering Facility: [facility] Address: [address] [place] [address] Performed By: #### 2 4323-8, 2777, ####[facility] LABORATORYCLIA [id number] [place] [id number] [place] Creatinine [Mass/Vol] 1.52 mg/dL High 0.73-1.22 [facility] Comment on above: Order Comment: Speci men Type: BLOOD SPECIMENOrdering Facility: [facility] Address: [address] [place] [address] Performed By: #### 2 4323-8, 2777, ####[facility] LABORATORYCLIA [id number] [place] [id number] [place] Creatinine and Glomerular filtration rate.predicted panel (S/P/Bld) 50 mL/min/1.73m??? Low >=60 [facility] Comment on above: Order Comment: Arben men Type: BLOOD SPECIMENOrdering Facility: [facility] Address: [address] [place] [address] Result Comment: Bailey mated Glomerular Filtration Rate [...] GFR. Performed By: #### 2 4323-8, 2777, ####[facility] LABORATORYCLIA [id number] [place] [id number] [place] Glucose [Mass/Vol] 132 mg/dL High 74-[address] [facility] Comment on above: Order Comment: Arben suarez Type: BLOOD SPECIMENOrdering Facility: [facility] Address: [address] [place] [address] Result Comment: The [place] [employer] (ADA) provides guidance for cutoff [...] Standards of Medical Care in Diabetes 2016, [place] [employer]. Diabetes Care. 2016.39(Suppl 1). Performed By: #### 2 4323-8, 2776-08, ####[facility] LABORATORYCLIA [id number] [place] [address] [place] Potassium [Moles/Vol] 3.9 mmol/L Normal 3.7-5.1 [facility] Comment on above: Order Comment: Arben suarez Type: BLOOD SPECIMENOrdering Facility: [facility] Address: [address] [place] [address] Performed By: #### 2 4323-8, 2776-08, ####[facility] LABORATORYCLIA [id number] [place] [id number] [place] Protein [Mass/Vol] 7.3 g/dL Normal 6.3-8.[address] [facility] Comment on above: Order Comment: Arben suarez Type: BLOOD SPECIMENOrdering Facility: [facility] Address: [address] [place] [address] Performed By: #### 2 4323-8, 2776-08, ####[facility] LABORATORYCLIA [id number] [place] [id number] [place] Sodium [Moles/Vol] 138 mmol/L Normal 136-[address] [facility] Comment on above: Order Comment: Demarcusi daniela Type: BLOOD SPECIMENOrdering Facility: [facility] Address: [address] [place] [address] Performed By: #### 2 4323-8, 2776-08, ####[facility] LABORATORYCLIA [id number] [place] [address] [place] Urea nitrogen [Mass/Vol] 25 mg/dL High 9-24 [facility] Comment on above: Order Comment: Speci men Type: BLOOD SPECIMENOrdering Facility: [facility] Address: [address] [place] [address] Performed By: #### 2 4323-8, 2777-1, ####[facility] LABORATORYCLIA [id number] [place] [id number] [place] Magnesium SerPl-ncon 08-09 Magnesium [Mass/Vol] 2.2 mg/dL Normal 1.7-2.3 [facility] Comment on above: Order Comment: Speci men Type: BLOOD SPECIMENOrdering Facility: [facility] Address: [place] [address] Performed By: #### 2 4323-8, 277-1, ####[facility]ITALDARI[facility] LABORATORYCLIA [id number] [place] [id number] [place] NURSING PROGon 08-09-2023 NURSING PROG Normal [facility] NUTRITIONon 08-09-2023 NUTRITION Normal [facility] Phosphate SerPl-mCncon 08-09 Phosphate [Mass/Vol] 3.1 mg/dL Normal 2.7-4.8 [facility] Comment on above: Order Comment: Speci men Type: BLOOD SPECIMENOrdering Facility: [facility] Address: [address] [place] [address] Performed By: #### 2 4323-8, 2776-08, ####[facility] LABORATORYCLIA [id number] [place] [id number] [place] THERAPY NTon 08-09-2023 THERAPY NT Normal [facility] ALLIED HEALTHon 08-08-2023 ALLIED HEALTH [facility] CASE MGT INIT ASSESon 2022 CASE MGT INIT [facility] CBC W Auto Differential pane l (Bld)on 08-08-2023 Basophils (Bld) [#/Vol] 0.06 10*3/uL Normal <0.11 [facility] Comment on above: Order Comment: Speci men Type: BLOOD SPECIMENOrdering Facility: [facility] Address: [address] [place] [address] Performed By: #### 5 7021-8 ####[facility] LABORATORYCLIA [id number] [place] [address] [place] Basophils/100 WBC (Bld) 0.7 % Normal [facility] Comment on above: Order Comment: Speci men Type: BLOOD SPECIMENOrdering Facility: [facility] Address: [address] [place] [address] Performed By: #### 5 7021-8 ####[facility] LABORATORYCLIA [id number] [place] [address] [place] Differential cell count method Nom (Bld) Auto Normal [facility] Comment on above: Order Comment: Speci men Type: BLOOD SPECIMENOrdering Facility: [facility] Address: [address] [place] [address] Performed By: #### 5 7021-8 ####[facility] LABORATORYCLIA [id number] [place] [address] [place] Eosinophils (Bld) [#/Vol] 0.14 10*3/uL Normal <0.46 [facility] Comment on above: Order Comment: Speci men Type: BLOOD SPECIMENOrdering Facility: [facility] Address: [address] [place] [address] Performed By: #### 5 7021-8 ####[facility] LABORATORYCLIA [id number] [place] [address] [place] Eosinophils/100 WBC (Bld) 1.7 % Normal [facility] Comment on above: Order Comment: Speci men Type: BLOOD SPECIMENOrdering Facility: [facility] Address: [address] [place] [address] Performed By: #### 5 7021-8 ####[facility] LABORATORYCLIA [id number] [place] [address] [place] Erythrocyte distribution width (RBC) [Ratio] 11.9 % Normal 11.5-15.0 [facility] Comment on above: Order Comment: Speci men Type: BLOOD SPECIMENOrdering Facility: [facility] Address: [address] [place] [address] Performed By: #### 5 7021-8 ####[facility] LABORATORYCLIA [id number] [place] [id number] [place] Hematocrit (Bld) [Volume fraction] 39.6 % Normal 39.0-51.0 [facility] Comment on above: Order Comment: Speci men Type: BLOOD SPECIMENOrdering Facility: [facility] Address: [address] [place] [address] Performed By: #### 5 7021-8 ####[facility] LABORATORYCLIA [id number] [place] [id number] [place] Hemoglobin (Bld) [Mass/Vol] 13.7 g/dL Normal 13.0-17.0 [facility] Comment on above: Order Comment: Speci men Type: BLOOD SPECIMENOrdering Facility: [facility] Address: [address] [place] [address] Performed By: #### 5 7021-8 ####[facility] LABORATORYCLIA [id number] [place] [address] [place] Immature granulocytes (Bld) [#/Vol] 0.06 10*3/uL Normal <0.10 [facility] Comment on above: Order Comment: Speci men Type: BLOOD SPECIMENOrdering Facility: [facility] Address: [address] [place] [address] Performed By: #### 5 7021-8 ####[facility] LABORATORYCLIA [id number] [place] [id number] [place] Immature granulocytes/100 WBC (Bld) 0.7 % Normal [facility] Comment on above: Order Comment: Speci men Type: BLOOD SPECIMENOrdering Facility: [facility] Address: [address] [place] [address] Performed By: #### 5 7021-8 ####[facility] LABORATORYCLIA [id number] [place] [address] [place] Lymphocytes (Bld) [#/Vol] 1.02 10*3/uL Normal 1.00-4.00 [facility] Comment on above: Order Comment: Speci men Type: BLOOD SPECIMENOrdering Facility: [facility] Address: [address] [place] [address] Performed By: #### 5 7021-8 ####[facility] LABORATORYCLIA [id number] [place] [address] [place] Lymphocytes/100 WBC (Bld) 12.1 % Normal [facility] Comment on above: Order Comment: Speci men Type: BLOOD SPECIMENOrdering Facility: [facility] Address: [address] [place] [address] Performed By: #### 5 7021-8 ####[facility] LABORATORYCLIA [id number] [place] [address] [place] MCH (RBC) [Entitic mass] 29.9 pg Normal 26.0-34.0 [facility] Comment on above: Order Comment: Speci men Type: BLOOD SPECIMENOrdering Facility: [facility] Address: [address] [place] [address] Performed By: #### 5 7021-8 ####[facility] LABORATORYCLIA [id number] [place] [address] [place] MCHC (RBC) [Mass/Vol] 34.6 g/dL Normal 30.5-36.0 [facility] Comment on above: Order Comment: Speci men Type: BLOOD SPECIMENOrdering Facility: [facility] Address: [address] [place] [address] Performed By: #### 5 7021-8 ####[facility] LABORATORYCLIA [id number] [place] [address] [place] MCV (RBC) [Entitic vol] 86.5 fL Normal 80.0-100.0 [facility] Comment on above: Order Comment: Speci men Type: BLOOD SPECIMENOrdering Facility: [facility] Address: [address] [place] [address] Performed By: #### 5 7021-8 ####[facility] LABORATORYCLIA [id number] [place] [address] [place] Monocytes (Bld) [#/Vol] 0.78 10*3/uL Normal <0.87 [facility] Comment on above: Order Comment: Speci men Type: BLOOD SPECIMENOrdering Facility: [facility] Address: [address] [place] [address] Performed By: #### 5 7021-8 ####[facility] LABORATORYCLIA [id number] [place] [id number] [place] Monocytes/100 WBC (Bld) 9.3 % Normal [facility] Comment on above: Order Comment: Speci men Type: BLOOD SPECIMENOrdering Facility: [facility] Address: [address] [place] [address] Performed By: #### 5 7021-8 ####[facility] LABORATORYCLIA [id number] [place] [address] [place] Neutrophils (Bld) [#/Vol] 6.37 10*3/uL Normal 1.45-7.50 [facility] Comment on above: Order Comment: Speci men Type: BLOOD SPECIMENOrdering Facility: [facility] Address: [address] [place] [address] Performed By: #### 5 7021-8 ####[facility] LABORATORYCLIA [id number] [place] [address] [place] Neutrophils/100 WBC (Bld) 75.5 % Normal [facility] Comment on above: Order Comment: Speci men Type: BLOOD SPECIMENOrdering Facility: [facility] Address: [address] [place] [address] Performed By: #### 5 7021-8 ####[facility] LABORATORYCLIA [id number] [place] [id number] [place] Nucleated RBC (Bld) [#/Vol] 10*3/uL Normal <0.01 [facility] Comment on above: Order Comment: Speci men Type: BLOOD SPECIMENOrdering Facility: [facility] Address: [address] [place] [address] Performed By: #### 5 7021-8 ####GEOVANNA LABORATORYCLIA [id number] [place] [id number] [place] Nucleated RBC/100 WBC (Bld) [Ratio] 0.0 /100 WBC Normal [facility] Comment on above: Order Comment: Speci men Type: BLOOD SPECIMENOrdering Facility: [facility] Address: [address] [place] [address] Performed By: #### 5 7021-8 ####GEOVANNA LABORATORYCLIA [id number] [place] [id number] [place] Platelet mean volume (Bld) [Entitic vol] 11.3 fL Normal 9.0-12.7 [facility] Comment on above: Order Comment: Speci men Type: BLOOD SPECIMENOrdering Facility: [facility] Address: [address] [place] [address] Performed By: #### 5 7021-8 ####GEOVANNA LABORATORYCLIA [id number] [place] [id number] [place] Platelets (Bld) [#/Vol] 320 10*3/uL Normal 150-400 [facility] Comment on above: Order Comment: Speci men Type: BLOOD SPECIMENOrdering Facility: [facility] Address: [address] [place] [address] Performed By: #### 5 7021-8 ####[facility] LABORATORYCLIA [id number] [place] [id number] [place] RBC (Bld) [#/Vol] 4.58 10*6/uL Normal 4.20-6.00 [facility] Comment on above: Order Comment: Speci men Type: BLOOD SPECIMENOrdering Facility: [facility] Address: [address] [place] [address] Performed By: #### 5 7021-8 ####GEOVANNA LABORATORYCLIA [id number] [place] [id number] [place] WBC (Bld) [#/Vol] 8.43 10*3/uL Normal 3.70-11.00 [facility] Comment on above: Order Comment: Speci men Type: BLOOD SPECIMENOrdering Facility: [facility] Address: [address] [place] [address] Performed By: #### 5 7021-8 ####MARIA STEIN LABORATORYCLIA [id number] [place] [address] [place] CONSULTon 08-08-2023 CONSULT Normal [facility] CT PANCREAS/PELVIS W IVCONon 08-08-2023 CT PANCREAS/PELVIS W IVCON Normal [facility] Comprehensive metabolic 2000 panelon 08-08-2023 Albumin [Mass/Vol] 4.5 g/dL Normal 3.9-4.[address] [facility] Comment on above: Order Comment: Speci men Type: BLOOD SPECIMENOrdering Facility: [facility] Address: [address] [place] [address] Performed By: #### 2 777-1, 09242-7, ####[facility] LABORATORYCLIA [id number] [place] [id number] [place] ALP [Catalytic activity/Vol] 114 U/L High 38-113 [facility] Comment on above: Order Comment: Speci men Type: BLOOD SPECIMENOrdering Facility: [facility] Address: [address] [place] [address] Performed By: #### 2 777-1, , ####MARIA STEIN LABORATORYCLIA [id number] [place] [id number] [place] ALT [Catalytic activity/Vol] 30 U/L Normal 10-54 [facility] Comment on above: Order Comment: Speci men Type: BLOOD SPECIMENOrdering Facility: [facility] Address: [address] [place] [address] Performed By: #### 2 777-1, , ####MARIA STEIN LABORATORYCLIA [id number] [place] [address] [place] Anion gap [Moles/Vol] 17 mmol/L Normal 9-18 [facility] Comment on above: Order Comment: Speci men Type: BLOOD SPECIMENOrdering Facility: [facility] Address: [address] [place] [address] Performed By: #### 2 777-1, 36976-3, ####MARIA STEIN LABORATORYCLIA [id number] [place] [address] [place] AST [Catalytic activity/Vol] 27 U/L Normal 14-40 [facility] Comment on above: Order Comment: Speci men Type: BLOOD SPECIMENOrdering Facility: [facility] Address: [place] [address] Performed By: #### 2 777-1, , ####GEOVANNA LABORATORYCLIA [id number] [place] [id number] [place] Bilirubin [Mass/Vol] 0.5 mg/dL Normal 0.2-1.3 [facility] Comment on above: Order Comment: Speci men Type: BLOOD SPECIMENOrdering Facility: [facility] Address: [place] [address] Performed By: #### 2 777-1, , ####GEOVANNA LABORATORYCLIA [id number] [place] [address] [place] Calcium [Mass/Vol] 9.7 mg/dL Normal 8.5-10.[address] [facility] Comment on above: Order Comment: Speci men Type: BLOOD SPECIMENOrdering Facility: [facility] Address: [address] [place] [address] Performed By: #### 2 777-1, , ####GEOVANNA LABORATORYCLIA [id number] [place] [id number] [place] Chloride [Moles/Vol] 102 mmol/L Normal 97-105 [facility] Comment on above: Order Comment: Speci men Type: BLOOD SPECIMENOrdering Facility: [facility] Address: [address] [place] [address] Performed By: #### 2 777-1, , ####GEOVANNA LABORATORYCLIA [id number] [place] [id number] [place] CO2 [Moles/Vol] 18 mmol/L Low 22-30 [facility] Comment on above: Order Comment: Speci men Type: BLOOD SPECIMENOrdering Facility: [facility] Address: [address] [place] [address] Performed By: #### 2 777-1, 44740-5, ####MARIA STEIN LABORATORYCLIA [id number] [place] [address] [place] Creatinine [Mass/Vol] 1.86 mg/dL High 0.73-1.22 [facility] Comment on above: Order Comment: Specbrooks suarez Type: BLOOD SPECIMENOrdering Facility: [facility] Address: [address] [place] [id number] Performed By: #### 2 777-1, 88965-7, ####MARIA STEIN LABORATORYCLIA [id number] [place] [id number] [place] Creatinine and Glomerular filtration rate.predicted panel (S/P/Bld) 39 mL/min/1.73m??? Low >=60 [facility] Comment on above: Order Comment: Arben suarez Type: BLOOD SPECIMENOrdering Facility: [facility] Address: [address] [place] [address] Result Comment: Bailey mated Glomerular Filtration Rate [...] actual GFR. Performed By: #### 2 777-1, 36294-2, ####MARIA STEIN LABORATORYCLIA [id number] [place] [id number] [place] Glucose [Mass/Vol] 87 mg/dL Normal 74-[address] [facility] Comment on above: Order Comment: Demarcusi men Type: BLOOD SPECIMENOrdering Facility: [facility] Address: [address] [place] [address] Result Comment: The [place] [employer] (ADA) provides guidance for cutoff [...] Standards of Medical Care in Diabetes 2016, [place] [employer]. Diabetes Care. 2016.39(Suppl 1). Performed By: #### 2 777-1, , ####[facility] LABORATORYCLIA [id number] [place] [id number] [place] Potassium [Moles/Vol] 4.2 mmol/L Normal 3.7-5.1 [facility] Comment on above: Order Comment: Arben suarez Type: BLOOD SPECIMENOrdering Facility: [facility] Address: [address] [place] [address] Performed By: #### 2 777-1, , ####[facility] LABORATORYCLIA [id number] [place] [id number] [place] Protein [Mass/Vol] 7.6 g/dL Normal 6.3-8.[address] [facility] Comment on above: Order Comment: Demarcusi daniela Type: BLOOD SPECIMENOrdering Facility: [facility] Address: [address] [place] [address] Performed By: #### 2 777-1, , ####GEOVANNA LABORATORYCLIA [id number] [place] [id number] [place] Sodium [Moles/Vol] 137 mmol/L Normal 136-[address] [facility] Comment on above: Order Comment: Speci men Type: BLOOD SPECIMENOrdering Facility: [facility] Address: [address] [place] [address] Performed By: #### 2 777-1, , ####[facility] LABORATORYCLIA [id number] [place] [address] [place] Urea nitrogen [Mass/Vol] 33 mg/dL High 9-24 [facility] Comment on above: Order Comment: Speci men Type: BLOOD SPECIMENOrdering Facility: [facility] Address: [place] [address] Performed By: #### 2 777-1, 38385-4, ####GEOVANNA LABORATORYCLIA [id number] [place] [address] [place] ECG COMPLETEon 08-08-2023 ECG COMPLETE Normal [facility] Magnesium [Mass/Vol] 2.2 mg/dL Normal 1.7-2.3 [facility] Comment on above: Order Comment: Speci men Type: BLOOD SPECIMENOrdering Facility: [facility] Address: [place] [address] Performed By: #### 2 777-1, 89314-4, ####GEOVANNA LABORATORYCLIA [id number] [place] [id number] [place] NUTRITIONon 08-08-2023 NUTRITION Normal [facility] NUTRITION Normal [facility] Phosphate [Mass/Vol] 3.4 mg/dL Normal 2.7-4.8 [facility] Comment on above: Order Comment: Speci men Type: BLOOD SPECIMENOrdering Facility: [facility] Address: [address] [place] [address] Performed By: #### 2 777-1, 50035-6, ####GEOVANNA LABORATORYCLIA [id number] [place] [id number] [place] THERAPY NTon 08-08-2023 THERAPY NT Normal [facility] Urinalysis complete panel (U )on 08-08-2023 Bilirubin Ql (U) Negative Normal Negative [facility] Comment on above: Order Comment: Speci men Type: URINE SPECIMENOrdering Facility: [facility] Address: [address] [place] [address] Performed By: #### 2 4356-8 ####[facility] LABORATORYCLIA [id number] [place] [id number] [place] Clarity (Unsp spec) Clear Normal Clear [facility] Comment on above: Order Comment: Speci men Type: URINE SPECIMENOrdering Facility: [facility] Address: [address] [place] [address] Performed By: #### 2 4356-8 ####[facility] LABORATORYCLIA [id number] [place] [address] [place] Color (U) Light Yellow Normal Yellow [facility] Comment on above: Order Comment: Speci men Type: URINE SPECIMENOrdering Facility: [facility] Address: [address] [place] [address] Performed By: #### 2 4356-8 ####[facility] LABORATORYCLIA [id number] [place] [address] [place] Glucose Test strip (U) [Mass/Vol] Negative Normal Trace, Negative [facility] Comment on above: Order Comment: Speci men Type: URINE SPECIMENOrdering Facility: [facility] Address: [address] [place] [address] Performed By: #### 2 4356-8 ####[facility] LABORATORYCLIA [id number] [place] [address] [place] Hemoglobin Ql (U) Negative Normal Negative, Trace [facility] Comment on above: Order Comment: Speci men Type: URINE SPECIMENOrdering Facility: [facility] Address: [address] [place] [address] Performed By: #### 2 4356-8 ####[facility] LABORATORYCLIA [id number] [place] [address] [place] Hyaline casts (Urine sed) [#/Area] 4-10 /LPF Abnormal 0 /LPF [facility] Comment on above: Order Comment: Speci men Type: URINE SPECIMENOrdering Facility: [facility] Address: [address] [place] [address] Performed By: #### 2 4356-8 ####[facility] LABORATORYCLIA [id number] [place] [address] [place] Ketones Ql (U) Trace Normal Negative, Trace [facility] Comment on above: Order Comment: Speci men Type: URINE SPECIMENOrdering Facility: [facility] Address: [address] [place] [address] Performed By: #### 2 4356-8 ####MARIA STEIN LABORATORYCLIA [id number] [address] [place] Leukocyte esterase Test strip Ql (U) Negative Normal Negative, 25 Angle/uL [facility] Comment on above: Order Comment: Speci men Type: URINE SPECIMENOrdering Facility: [facility] Address: [address] [place] [address] Performed By: #### 2 4356-8 ####[facility] LABORATORYCLIA [id number] [place] [address] [place] Nitrite Ql (U) Negative Normal Negative [facility] Comment on above: Order Comment: Speci men Type: URINE SPECIMENOrdering Facility: [facility] Address: [address] [place] [address] Performed By: #### 2 4356-8 ####[facility] LABORATORYCLIA [id number] [place] [address] [place] pH (U) 6.5 [pH] Normal 5.0-8.0 [facility] Comment on above: Order Comment: Speci men Type: URINE SPECIMENOrdering Facility: [facility] Address: [address] [place] [address] Performed By: #### 2 4356-8 ####[facility] LABORATORYCLIA [id number] [place] [address] [place] Protein (U) [Mass/Vol] 1+ Abnormal Trace, Negative [facility] Comment on above: Order Comment: Speci men Type: URINE SPECIMENOrdering Facility: [facility] Address: [address] [place] [address] Performed By: #### 2 4356-8 ####MARIA STEIN LABORATORYCLIA [id number] [place] [address] [place] RBC LM.HPF (Urine sed) [#/Area] 0-3 /HPF Normal 0-3 /HPF [facility] Comment on above: Order Comment: Speci men Type: URINE SPECIMENOrdering Facility: [facility] Address: [address] [place] [address] Performed By: #### 2 4356-8 ####MARIA STEIN LABORATORYCLIA [id number] [place] [id number] [place] Specific gravity (U) [Rel density] >1.050 High 1.005-1.03 0 [facility] Comment on above: Order Comment: Speci men Type: URINE SPECIMENOrdering Facility: [facility] Address: [address] [place] [address] Performed By: #### 2 4356-8 ####MARIA STEIN LABORATORYCLIA [id number] [place] [address] [place] Urobilinogen Ql (U) Negative Normal Negative [facility] Comment on above: Order Comment: Speci men Type: URINE SPECIMENOrdering Facility: [facility] Address: [address] [place] [address] Performed By: #### 2 4356-8 ####MARIA STEIN LABORATORYCLIA [id number] [place] [address] [place] WBC LM.HPF (Urine sed) [#/Area] 0-5 /HPF Normal 0-5 /HPF [facility] Comment on above: Order Comment: Speci men Type: URINE SPECIMENOrdering Facility: [facility] Address: [address] [place] [address] Performed By: #### 2 4356-8 ####MARIA STEIN LABORATORYCLIA [id number] [place] [id number] [place] ALLIED HEALTHon 08-07-2023 ALLIED HEALTH Normal [facility] CBC W Auto Differential pane l (Bld)on 08-07-2023 Basophils (Bld) [#/Vol] 0.06 10*3/uL Normal <0.11 [facility] Comment on above: Order Comment: Speci men Type: BLOOD SPECIMENOrdering Facility: [facility] Address: [address] [place] [address] Performed By: #### 5 7021-8 ####MARIA STEIN LABORATORYCLIA [id number] [place] [address] [place] Basophils/100 WBC (Bld) 0.6 % Normal [facility] Comment on above: Order Comment: Speci men Type: BLOOD SPECIMENOrdering Facility: [facility] Address: [address] [place] [address] Performed By: #### 5 7021-8 ####[facility] LABORATORYCLIA [id number] [place] [address] [place] Differential cell count method Nom (Bld) Auto Normal [facility] Comment on above: Order Comment: Speci men Type: BLOOD SPECIMENOrdering Facility: [facility] Address: [address] [place] [address] Performed By: #### 5 7021-8 ####[facility] LABORATORYCLIA [id number] [place] [address] [place] Eosinophils (Bld) [#/Vol] 0.08 10*3/uL Normal <0.46 [facility] Comment on above: Order Comment: Speci men Type: BLOOD SPECIMENOrdering Facility: [facility] Address: [address] [place] [address] Performed By: #### 5 7021-8 ####[facility] LABORATORYCLIA [id number] [address] [place] Eosinophils/100 WBC (Bld) 0.8 % Normal [facility] Comment on above: Order Comment: Speci men Type: BLOOD SPECIMENOrdering Facility: [facility] Address: [address] [place] [address] Performed By: #### 5 7021-8 ####GEOVANNA LABORATORYCLIA [id number] [address] [place] Erythrocyte distribution width (RBC) [Ratio] 11.9 % Normal 11.5-15.0 [facility] Comment on above: Order Comment: Speci men Type: BLOOD SPECIMENOrdering Facility: [facility] Address: [address] [place] [address] Performed By: #### 5 7021-8 ####[facility] LABORATORYCLIA [id number] [place] [address] [place] Hematocrit (Bld) [Volume fraction] 43.6 % Normal 39.0-51.0 [facility] Comment on above: Order Comment: Speci men Type: BLOOD SPECIMENOrdering Facility: [facility] Address: [address] [place] [address] Performed By: #### 5 7021-8 ####GEOVANNA LABORATORYCLIA [id number] [place] [id number] [place] Hemoglobin (Bld) [Mass/Vol] 14.9 g/dL Normal 13.0-17.0 [facility] Comment on above: Order Comment: Speci men Type: BLOOD SPECIMENOrdering Facility: [facility] Address: [address] [place] [address] Performed By: #### 5 7021-8 ####[facility] LABORATORYCLIA [id number] [place] [address] [place] Immature granulocytes (Bld) [#/Vol] 0.10 10*3/uL High <0.10 [facility] Comment on above: Order Comment: Speci men Type: BLOOD SPECIMENOrdering Facility: [facility] Address: [address] [place] [address] Performed By: #### 5 7021-8 ####[facility] LABORATORYCLIA [id number] [place] [id number] [place] Immature granulocytes/100 WBC (Bld) 1.0 % Normal [facility] Comment on above: Order Comment: Speci men Type: BLOOD SPECIMENOrdering Facility: [facility] Address: [address] [place] [address] Performed By: #### 5 7021-8 ####[facility] LABORATORYCLIA [id number] [place] [id number] [place] Lymphocytes (Bld) [#/Vol] 1.20 10*3/uL Normal 1.00-4.00 [facility] Comment on above: Order Comment: Speci men Type: BLOOD SPECIMENOrdering Facility: [facility] Address: [address] [place] [address] Performed By: #### 5 7021-8 ####[facility] LABORATORYCLIA [id number] [place] [id number] [place] Lymphocytes/100 WBC (Bld) 12.1 % Normal [facility] Comment on above: Order Comment: Speci men Type: BLOOD SPECIMENOrdering Facility: [facility] Address: [address] [place] [address] Performed By: #### 5 7021-8 ####GEOVANNA LABORATORYCLIA [id number] [place] [address] [place] MCH (RBC) [Entitic mass] 29.4 pg Normal 26.0-34.0 [facility] Comment on above: Order Comment: Speci men Type: BLOOD SPECIMENOrdering Facility: [facility] Address: [address] [place] [address] Performed By: #### 5 7021-8 ####[facility] LABORATORYCLIA [id number] [place] [address] [place] MCHC (RBC) [Mass/Vol] 34.2 g/dL Normal 30.5-36.0 [facility] Comment on above: Order Comment: Speci men Type: BLOOD SPECIMENOrdering Facility: [facility] Address: [address] [place] [address] Performed By: #### 5 7021-8 ####[facility] LABORATORYCLIA [id number] [place] [address] [place] MCV (RBC) [Entitic vol] 86.0 fL Normal 80.0-100.0 [facility] Comment on above: Order Comment: Speci men Type: BLOOD SPECIMENOrdering Facility: [facility] Address: [address] [place] [address] Performed By: #### 5 7021-8 ####[facility] LABORATORYCLIA [id number] [place] [address] [place] Monocytes (Bld) [#/Vol] 0.97 10*3/uL High <0.87 [facility] Comment on above: Order Comment: Speci men Type: BLOOD SPECIMENOrdering Facility: [facility] Address: [address] [place] [address] Performed By: #### 5 7021-8 ####GEOVANNA LABORATORYCLIA [id number] [place] [id number] [place] Monocytes/100 WBC (Bld) 9.7 % Normal [facility] Comment on above: Order Comment: Speci men Type: BLOOD SPECIMENOrdering Facility: [facility] Address: [address] [place] [address] Performed By: #### 5 7021-8 ####GEOVANNA LABORATORYCLIA [id number] [place] [id number] [place] Neutrophils (Bld) [#/Vol] 7.54 10*3/uL High 1.45-7.50 [facility] Comment on above: Order Comment: Speci men Type: BLOOD SPECIMENOrdering Facility: [facility] Address: [address] [place] [address] Performed By: #### 5 7021-8 ####GEOVANNA LABORATORYCLIA [id number] [place] [address] [place] Neutrophils/100 WBC (Bld) 75.8 % Normal [facility] Comment on above: Order Comment: Speci men Type: BLOOD SPECIMENOrdering Facility: [facility] Address: [address] [place] [address] Performed By: #### 5 7021-8 ####GEOVANNA LABORATORYCLIA [id number] [place] [id number] [place] Nucleated RBC (Bld) [#/Vol] 10*3/uL Normal <0.01 [facility] Comment on above: Order Comment: Speci men Type: BLOOD SPECIMENOrdering Facility: [facility] Address: [address] [place] [address] Performed By: #### 5 7021-8 ####[facility] LABORATORYCLIA [id number] [place] [id number] [place] Nucleated RBC/100 WBC (Bld) [Ratio] 0.0 /100 WBC Normal [facility] Comment on above: Order Comment: Speci men Type: BLOOD SPECIMENOrdering Facility: [facility] Address: [address] [place] [address] Performed By: #### 5 7021-8 ####GE[facility]AN[facility] LABORATORYCLIA [id number] [place] [id number] [place] Platelet mean volume (Bld) [Entitic vol] 11.6 fL Normal 9.0-12.7 [facility] Comment on above: Order Comment: Speci men Type: BLOOD SPECIMENOrdering Facility: [facility] Address: [address] [place] [address] Performed By: #### 5 7021-8 ####[facility] LABORATORYCLIA [id number] [place] [id number] [place] Platelets (Bld) [#/Vol] 374 10*3/uL Normal 150-400 [facility] Comment on above: Order Comment: Speci men Type: BLOOD SPECIMENOrdering Facility: [facility] Address: [address] [place] [address] Performed By: #### 5 7021-8 ####[facility] LABORATORYCLIA [id number] [place] [address] [place] RBC (Bld) [#/Vol] 5.07 10*6/uL Normal 4.20-6.00 [facility] Comment on above: Order Comment: Speci men Type: BLOOD SPECIMENOrdering Facility: [facility] Address: [address] [place] [address] Performed By: #### 5 7021-8 ####[facility] LABORATORYCLIA [id number] [place] [id number] [place] WBC (Bld) [#/Vol] 9.95 10*3/uL Normal 3.70-11.00 [facility] Comment on above: Order Comment: Speci men Type: BLOOD SPECIMENOrdering Facility: [facility] Address: [address] [place] [address] Performed By: #### 5 7021-8 ####[facility] LABORATORYCLIA [id number] [place] [id number] [facility] [place] CNOVon 08-07-2023 CNOV Office Visit (GENNOM ) -- AISHA JULIEN ([id number]) 1955 M Date Time Provider Department 08/07/23 [...] (more content not included)... Normal [facility] CRP SerPl-mCncon 08-07-2023 CRP [Mass/Vol] mg/L Normal <0.9 [facility] Comment on above: Order Comment: Speci men Type: BLOOD SPECIMENOrdering Facility: [facility] Address: [address] [place] [address] Performed By: #### 2 276-4, 1987-12 ####MARIA STEIN LABORATORYCLIA [id number] [place] [id number] [place] Comprehensive metabolic 2000 panelon 08-07-2023 Albumin [Mass/Vol] 4.6 g/dL Normal 3.9-4.[address] [facility] Comment on above: Order Comment: Speci men Type: BLOOD SPECIMENOrdering Facility: [facility] Address: [address] [place] [address] Performed By: #### 3 040-3, , ####MARIA STEIN LABORATORYCLIA [id number] [place] [id number] [place] ALP [Catalytic activity/Vol] 127 U/L High 38-113 [facility] Comment on above: Order Comment: Speci men Type: BLOOD SPECIMENOrdering Facility: [facility] Address: [address] [place] [address] Performed By: #### 3 040-3, , ####MARIA STEIN LABORATORYCLIA [id number] [place] [address] [place] ALT [Catalytic activity/Vol] 35 U/L Normal 10-54 [facility] Comment on above: Order Comment: Speci men Type: BLOOD SPECIMENOrdering Facility: [facility] Address: [address] [place] [address] Performed By: #### 3 040-3, , ####MARIA STEIN LABORATORYCLIA [id number] [place] [id number] [place] Anion gap [Moles/Vol] 18 mmol/L Normal 9-18 [facility] Comment on above: Order Comment: Speci men Type: BLOOD SPECIMENOrdering Facility: [facility] Address: [place] [address] Performed By: #### 3 040-3, , ####GEOVANNA LABORATORYCLIA [id number] [place] [id number] [place] AST [Catalytic activity/Vol] 30 U/L Normal 14-40 [facility] Comment on above: Order Comment: Speci men Type: BLOOD SPECIMENOrdering Facility: [facility] Address: [place] [address] Performed By: #### 3 040-3, , ####GEOVANNA LABORATORYCLIA [id number] [place] [address] [place] Bilirubin [Mass/Vol] 0.5 mg/dL Normal 0.2-1.3 [facility] Comment on above: Order Comment: Speci men Type: BLOOD SPECIMENOrdering Facility: [facility] Address: [place] [address] Performed By: #### 3 040-3, , ####GEOVANNA LABORATORYCLIA [id number] [place] [id number] [place] Calcium [Mass/Vol] 9.9 mg/dL Normal 8.5-10.[address] [facility] Comment on above: Order Comment: Speci men Type: BLOOD SPECIMENOrdering Facility: [facility] Address: [address] [place] [address] Performed By: #### 3 040-3, , ####GEOVANNA LABORATORYCLIA [id number] [place] [id number] [place] Chloride [Moles/Vol] 93 mmol/L Low 97-105 [facility] Comment on above: Order Comment: Speci men Type: BLOOD SPECIMENOrdering Facility: [facility] Address: [address] [place] [address] Performed By: #### 3 040-3, , ####MARIA STEIN LABORATORYCLIA [id number] [place] [address] [place] CO2 [Moles/Vol] 19 mmol/L Low 22-30 [facility] Comment on above: Order Comment: Speci men Type: BLOOD SPECIMENOrdering Facility: [facility] Address: [address] [place] [address] Performed By: #### 3 040-3, , ####MARIA STEIN LABORATORYCLIA [id number] [place] [id number] [place] Creatinine [Mass/Vol] 2.20 mg/dL High 0.73-1.22 [facility] Comment on above: Order Comment: Speci men Type: BLOOD SPECIMENOrdering Facility: [facility] Address: [address] [place] [address] Performed By: #### 3 040-3, , ####MARIA STEIN LABORATORYCLIA [id number] [place] [id number] [place] Creatinine and Glomerular filtration rate.predicted panel (S/P/Bld) 32 mL/min/1.73m??? Low >=60 [facility] Comment on above: Order Comment: Speci men Type: BLOOD SPECIMENOrdering Facility: [facility] Address: [address] [place] [address] Result Comment: Bailey mated Glomerular Filtration Rate [...] GFR. Performed By: #### 3 040-3, , ####MARIA STEIN LABORATORYCLIA [id number] [place] [address] [place] Glucose [Mass/Vol] 108 mg/dL High 74-[address] [facility] Comment on above: Order Comment: Speci men Type: BLOOD SPECIMENOrdering Facility: [facility] Address: [address] [place] [address] Result Comment: The [place] Diabetes Association (ADA) provides guidance for cutoff [...] Standards of Medical Care in Diabetes 2016, [place] [employer]. Diabetes Care. 2016.39(Suppl 1). Performed By: #### 3 040-3, , ####GEOVANNA LABORATORYCLIA [id number] [place] [id number] [place] Potassium [Moles/Vol] 3.7 mmol/L Normal 3.7-5.1 [facility] Comment on above: Order Comment: Arben daniela Type: BLOOD SPECIMENOrdering Facility: [facility] Address: [address] [place] [address] Performed By: #### 3 040-3, , ####GEOVANNA LABORATORYCLIA [id number] [place] [id number] [place] Protein [Mass/Vol] 8.4 g/dL High 6.3-8.[address] [facility] Comment on above: Order Comment: [facility] Type: BLOOD SPECIMENOrdering Facility: [facility] Address: [address] [place] [address] Performed By: #### 3 040-3, , ####[facility] LABORATORYCLIA [id number] [place] [address] [place] Sodium [Moles/Vol] 130 mmol/L Low 136-[address] [facility] Comment on above: Order Comment: Speci men Type: BLOOD SPECIMENOrdering Facility: [facility] Address: [address] [place] [address] Performed By: #### 3 040-3, , ####GEOVANNA LABORATORYCLIA [id number] [place] [id number] [place] [facility] Urea nitrogen [Mass/Vol] 37 mg/dL High 9-24 [facility] Comment on above: Order Comment: Speci men Type: BLOOD SPECIMENOrdering Facility: [facility] Address: [place] [address] Performed By: #### 3 040-3, , ####GEOVANNA LABORATORYCLIA [id number] [place] [id number] [facility] [place] ED PROV NOTEon 08-07-2023 ED PROV NOTE Normal [facility] ED Triage Noteon 08-07-2023 ED Triage Note Normal [facility] Ferritin SerPl-mCncon 2022 Ferritin [Mass/Vol] 723.9 ng/mL High 30.3-565.7 [facility] Comment on above: Order Comment: Speci men Type: BLOOD SPECIMENOrdering Facility: [facility] Address: [place] [address] Performed By: #### 2 276-4, 1987-12 ####GEOVANNA LABORATORYCLIA [id number] [place] [id number] [facility] HISTORY PHYSICALon HISTORY PHYSICAL Normal [facility] HISTORY PHYSICAL HNO ID: [id number] Author: Cleveland Alberts MD Service: ? Author [...] (more content not included)... Normal [facility] Lipase SerPl-cCncon 08-07-20 23 Lipase [Catalytic activity/Vol] 154 U/L High 16-61 [facility] Comment on above: Order Comment: Speci men Type: BLOOD SPECIMENOrdering Facility: [facility] Address: [address] [place] [address] Performed By: #### 3 040-3, 46481-9, 26062-4 ####MARIA STEIN LABORATORYCLIA [id number] [place] [address] [place] Magn[facility]07 Magnesium [Mass/Vol] 1.6 mg/dL Low 1.7-2.3 [facility] Comment on above: Order Comment: Arben suarez Type: BLOOD SPECIMENOrdering Facility: [facility] Address: [address] [place] [address] Performed By: #### 3 040-3, 29501-4, 07644-9 ####GEOVANNA LABORATORYCLIA [id number] [place] [id number] [place] PT panel Coag (PPP)on 2022 INR Coag (PPP) [Relative time] 1.0 {INR} Normal 0.9-1.3 [facility] Comment on above: Order Comment: Arben suarez Type: BLOOD SPECIMENOrdering Facility: [facility] Address: [address] [place] [address] Result Comment: Karissa min K Antagonist (VKA) Therapeutic Range: INR 2 to 3 (Target INR of 2.5)Note: For patients treated with VKA drugs, such as warfarin, the [place] [employer] 2012 Guideline recommends [...] 70: 252-289 Performed By: #### 3 4528-0, 75390-0 ####GEOVANNA LABORATORYCLIA [id number] [place] [id number] [place] PT Coag (PPP) [Time] 11.6 s Normal 9.7-13.0 [facility] Comment on above: Order Comment: Arben suarez Type: BLOOD SPECIMENOrdering Facility: [facility] Address: [address] [place] [address] Performed By: #### 3 4528-0, 41827-0 ####GEOVANNA LABORATORYCLIA [id number] [place] [address] [place] Prealb SerPl-mCncon 08-07-20 23 Prealbumin [Mass/Vol] 18 mg/dL Normal 17-36 [facility] Comment on above: Order Comment: Speci men Type: BLOOD SPECIMENOrdering Facility: [facility] Address: [address] [place] [address] Performed By: #### 3 034-6, 19389-3 ####[facility] LABCLIA [id number] [place] [address] [place] TYPE + SCREENon 08-07-2023 ABO A [facility] Comment on above: Order Comment: Speci men Type: BLOOD SPECIMENOrdering Facility: [facility] Address: [address] [place] [address] Performed By: #### T SCR ####[facility] BLOOD BANKCLIA [id number] [place] [address] [place] HISTORICAL AB SCR STATUS Negative [facility] Comment on above: Order Comment: Speci men Type: BLOOD SPECIMENOrdering Facility: [facility] Address: [address] [place] [address] Performed By: #### T SCR ####[facility] BLOOD BANKCLIA [id number] [place] [address] [place] Rh Nom (Bld) Positive [facility] Comment on above: Order Comment: Speci men Type: BLOOD SPECIMENOrdering Facility: [facility] Address: [address] [place] [address] Performed By: #### T SCR ####[facility] BLOOD BANKCLIA [id number] [place] [address] [place] TYPE AND SCREEN EXPIRATION 08/10/2023 23:59 Normal [facility] Comment on above: Order Comment: Speci men Type: BLOOD SPECIMENOrdering Facility: [facility] Address: [place] [address] Performed By: #### T SCR ####MARIA STEIN BLOOD BANKCLIA [id number] [place] [address] [place] Transferrin SerPl-mCncon Transferrin [Mass/Vol] 250 mg/dL Normal 200-360 [facility] Comment on above: Order Comment: Speci men Type: BLOOD SPECIMENOrdering Facility: [facility] Address: [place] [address] Performed By: #### 3 034-6, 00929-2 ####[facility] LABCLIA [id number] [facility] [id number] [place] [address] [place] XR ABDOMEN 1V SUPINEon 08-07 XR ABDOMEN 1V SUPINE Normal [facility] aPTT PPPon 08-07-2023 aPTT Coag (PPP) [Time] 29.9 s Normal 23.0-32.4 [facility] Comment on above: Order Comment: Speci men Type: BLOOD SPECIMENOrdering Facility: [facility] Address: [place] [address] Performed By: #### 3 4528-0, 19852-7 ####GEOVANNA LABORATORYCLIA [id number] [address] [place] CNPAisha 08-05-2023 BROCK[facility] Telephone (PATRICIA) -- AISHA JULIEN ([id number]) 1955 M Date Time Provider Department 08/05/23 [...] control regim (more content not included)... Normal [facility] Telephone ([id number]) -- AISHA JULIEN ([id number]) 1955 M Date Time Provider Department 08/05/23 [facility] [id number] During your visit today, we recorded the [...] appointment. *Requested images to be pushed from [employer] 08/05. Also faxed release of information to patients PCP - Dr. Cannon in [facility]. Allergies As of Date: 08/05/2023 [...] Encounter Status:Closed by JESSIE ZAMORA on 08/05/23 [facility] Judy 07-29-2023 CNPN Telephone ([id number]) -- AISHA JULIEN ([id number]) 1955 M Date Time Provider Department 07/29/23 [facility] [id number] During your visit today, we recorded the following information about you: Vicki Rosario 07/29/2023 3:53 PM Addendum New patient referral from Dr. Linder's office ([phone]) to Dr. Alberts for Duodenal Mass. Contacted the office to resend records. Please advise on scheduling Allergies As of Date: 07/29/2023 (Not on File) Date Reviewed: Never Reviewed Reason for Visit: Appointment [186] Problem List As Of Date: 07/29/2023 (None) Encounter Status:Closed by VICKI ROSARIO on 07/29/23 Normal [facility] Basic Metabolic Panelon 12-0 Anion gap [Moles/Vol] 11.9 mmol/L Normal 6.0-15.0 [facility] Comment on above: Performed By: #### C BC, BMP ####[facility] [place] [address] [facility] Calcium [Mass/Vol] 8.5 mg/dL Low 8.6-10.3 [facility] Comment on above: Performed By: #### C BC, BMP ####[facility] [place] [address] [facility] Chloride [Moles/Vol] 105 mmol/L Normal 98-107 [facility] Comment on above: Performed By: #### C BC, BMP ####[facility] [place] [address] [facility] CO2 [Moles/Vol] 26.0 mmol/L Normal 21.0-31.0 [facility] Comment on above: Performed By: #### C BC, BMP ####[facility] [place] [address] [facility] Creatinine [Mass/Vol] 1.71 mg/dL Significan t change up 0.70-1.30 [facility] Comment on above: Performed By: #### C BC, BMP ####[place] [address] [place] [id number] [facility] Creatinine Clr Calc Pharmacy 41.35 [facility] Comment on above: Result Comment: PERF ORMED BY: [facility] [address] [place] [address] PATHOLOGIST SAT ACT INSTRUCTOR RAHEL TREVINO M.D. Performed By: #### C BC, BMP ####[place] [id number] [address] GFR/1.73 sq M.predicted MDRD (S/P/Bld) [Vol rate/Area] 43.064 mL/min/{1.73_m2} [facility] Comment on above: Performed By: #### C BC, BMP ####[address] Glucose [Mass/Vol] 115 mg/dL High 70-100 [facility] Comment on above: Result Comment: [place] Glucose Reference Range is dependent on time and content of last meal. Glucose of more than 200 mg/dL in a nonstressed, ambulatory subject supports the diagnosis of Diabetes Mellitus. ADA recommended reference range Performed By: #### C BC, BMP ####[place] [id number] [facility] Potassium [Moles/Vol] 3.9 mmol/L Normal 3.5-5.1 [facility] Comment on above: Performed By: #### C BC, BMP ####[address] Sodium [Moles/Vol] 139 mmol/L Normal 136-145 [facility] Comment on above: Performed By: #### C BC, BMP ####[place] [id number] [facility] Urea nitrogen [Mass/Vol] 29 mg/dL High 7-25 [facility] Comment on above: Performed By: #### C BC, BMP ####[place] [id number] [place] Basophils Auto (Bld) [#/Vol] Ordered By: Gela Eller on 07-26-2023 Basophils (Bld) [#/Vol] 0.0 10*3/uL 0.0-0.2 [facility] Basophils/100 WBC Auto (Bld) Ordered By: Gela Eller on 07-26-2023 Basophils/100 WBC (Bld) 0.9 % . [facility] Calcium [Mass/volume] in Ser um or PlasmaOrdered By: Gela Eller on 07-26-2023 Calcium [Mass/Vol] 8.5 mg/dL 8.6-10.3 [facility] Carbon dioxide, total [Moles /volume] in Serum or PlasmaOrdered By: Gela Eller on 07-26-2023 CO2 [Moles/Vol] 26.0 mmol/L 21.0-31.0 [facility] Chloride [Moles/volume] in S sadi or PlasmaOrdered By: Gela Eller on 07-26-2023 Chloride [Moles/Vol] 105 mmol/L 98-107 [facility] Complete Blood Count Auto Di ffon 07-26-2023 Basophils (Bld) [#/Vol] 0.0 10*3/uL Normal 0.0-0.2 [facility] Comment on above: Result Comment: PERF ORMED BY: [facility] [address] [place] [id number] PATHOLOGIST SAT ACT INSTRUCTOR RAHEL TREVINO M.D. Performed By: #### C BC, BMP ####[place] [address] [address] Basophils/100 WBC (Bld) 0.9 % Normal . [facility] Comment on above: Performed By: #### C BC, BMP ####[facility] [place] [id number] [place] Eosinophils (Bld) [#/Vol] 0.4 10*3/uL Normal 0.0-0.45 [facility] Comment on above: Performed By: #### C BC, BMP ####[place] [address] [place] [id number] [facility] Eosinophils/100 WBC (Bld) 7.7 % Normal . [facility] Comment on above: Performed By: #### C BC, BMP ####[address] Erythrocyte distribution width (RBC) [Ratio] 12.1 % Normal 12.0-14.8 [facility] Comment on above: Performed By: #### C BC, BMP ####[address] Hematocrit (Bld) [Volume fraction] 31.2 % Low 38.8-50.0 [facility] Comment on above: Performed By: #### C SADAF, BMP ####[address] Hemoglobin (Bld) [Mass/Vol] 10.6 g/dL Low 13.0-17.0 [facility] Comment on above: Performed By: #### C SADAF, BMP ####[address] Lymphocytes (Bld) [#/Vol] 0.8 10*3/uL Low 1.00-4.8 [facility] Comment on above: Performed By: #### C SADAF, BMP ####[address] Lymphocytes/100 WBC (Bld) 15.8 % Normal . [facility] Comment on above: Performed By: #### C SADAF, BMP ####[place] [id number] [facility] MCH (RBC) [Entitic mass] 30.1 pg Normal 27.5-35.2 [facility] Comment on above: Performed By: #### C BC, BMP ####[place] [phone] [facility] MCV (RBC) [Entitic vol] 88.6 fL Normal 83.5-101 [facility] Comment on above: Performed By: #### C BC, BMP ####[place] [phone] [facility] Mean Corpuscular HGB Conc 34.0 g/dL Normal 32.5-35.6 [facility] Comment on above: Performed By: #### C BC, BMP ####[place] [phone] [facility] Monocytes (Bld) [#/Vol] 1.1 10*3/uL High 0.0-0.8 [facility] Comment on above: Performed By: #### C BC, BMP ####[place] [id number] [facility] Monocytes/100 WBC (Bld) 22.7 % Normal . [facility] Comment on above: Performed By: #### C SADAF, BMP ####[address] Neutrophils (Bld) [#/Vol] 2.6 10*3/uL Normal 1.8-7.7 [facility] Comment on above: Performed By: #### C SADAF, BMP ####[place] [id number] [facility] Neutrophils/100 WBC (Bld) 52.9 % Normal . [facility] Comment on above: Performed By: #### C SADAF, BMP ####[place] [phone] [facility] NRBC% 0.2 /100{WBC} Normal 0-0.5 [facility] Comment on above: Performed By: #### C SADAF, BMP ####[place] [phone] [facility] Platelet mean volume (Bld) [Entitic vol] 10.2 fL High 6.6-10.1 [facility] Comment on above: Performed By: #### C BC, BMP ####[place] [phone] [facility] Platelets (Bld) [#/Vol] 190 10*3/uL Normal 150-450 [facility] Comment on above: Performed By: #### C BC, BMP ####[place] [phone] [facility] RBC (Bld) [#/Vol] 3.52 10*6/uL Low 3.90-5.60 [facility] Comment on above: Performed By: #### C SADAF, WESTON ####[facility] [address] [place] [id number] [facility] WBC (Bld) [#/Vol] 5.0 10*3/uL Normal 4.1-10.5 [facility] Comment on above: Performed By: #### C SADAF, BMP ####[facility] [address] [place] [id number] [facility] Creatinine [Mass/volume] in Serum or PlasmaOrdered By: Gela Eller on 07-26-2023 Creatinine [Mass/Vol] 1.71 mg/dL 0.70-1.30 [facility] Comment on above: Delta: 2.86 on 07/25 Eosinophils Auto (Bld) [#/Vo l]Ordered By: Gela Eller on 07-26-2023 Eosinophils (Bld) [#/Vol] 0.4 10*3/uL 0.0-0.45 [facility] Eosinophils/100 WBC Auto (Bl d)Ordered By: Gela Eller on 07-26-2023 Eosinophils/100 WBC (Bld) 7.7 % . [facility] Erythrocyte distribution wid th Auto (RBC) [Ratio]Ordered By: Gela Eller on 07-26-2023 Erythrocyte distribution width (RBC) [Ratio] 12.1 % 12.0-14.8 [facility] Glucose [Mass/volume] in Ser um or PlasmaOrdered By: Gela Eller on 07-26-2023 Glucose [Mass/Vol] 115 mg/dL 70-100 [facility] Comment on above: ADA recommended refe rence rangeRandom Glucose Reference Range is dependent on time and content of last meal. Glucose of more than 200 mg/dL in a nonstressed, ambulatory subject supports the diagnosis of Diabetes Mellitus. Hematocrit Auto (Bld) [Volum e fraction]Ordered By: Gela Eller on 07-26-2023 Hematocrit (Bld) [Volume fraction] 31.2 % 38.8-50.0 [facility] Hemoglobin [Mass/volume] in BloodOrdered By: Geal Eller on 07-26-2023 Hemoglobin (Bld) [Mass/Vol] 10.6 g/dL 13.0-17.0 [facility] Leukocytes [#/volume] correc johnnie for nucleated erythrocytes in Blood by Automated counOrdered By: Gela Eller on 07-26-2023 WBC corrected for nucl RBC Auto (Bld) [#/Vol] 5.0 10*3/uL 4.1-10.5 [facility] Lymphocytes Auto (Bld) [#/Vo l]Ordered By: Gela Eller on 07-26-2023 Lymphocytes (Bld) [#/Vol] 0.8 10*3/uL 1.00-4.8 [facility] Lymphocytes/100 WBC Auto (Bl d)Ordered By: Gela Eller on 07-26-2023 Lymphocytes/100 WBC (Bld) 15.8 % . [facility] MCH Auto (RBC) [Entitic mass ]Ordered By: Gela Eller on 07-26-2023 MCH (RBC) [Entitic mass] 30.1 pg 27.5-35.2 [facility] MCHC Auto (RBC) [Mass/Vol]Or dered By: Gela Eller on 07-26-2023 MCHC (RBC) [Mass/Vol] 34.0 g/dL 32.5-35.6 [facility] MCV Auto (RBC) [Entitic vol] Ordered By: Gela Eller on 07-26-2023 MCV (RBC) [Entitic vol] 88.6 fL 83.5-101 [facility] Monocytes Auto (Bld) [#/Vol] Ordered By: Gela Eller on 07-26-2023 Monocytes (Bld) [#/Vol] 1.1 10*3/uL 0.0-0.8 [facility] Monocytes/100 WBC Auto (Bld) Ordered By: Gela Eller on 07-26-2023 Monocytes/100 WBC (Bld) 22.7 % . [facility] Neutrophils Auto (Bld) [#/Vo l]Ordered By: Gela Eller on 07-26-2023 Neutrophils (Bld) [#/Vol] 2.6 10*3/uL 1.8-7.7 [facility] Neutrophils/100 WBC Auto (Bl d)Ordered By: Gela Eller on 07-26-2023 Neutrophils/100 WBC (Bld) 52.9 % . [facility] No Panel InformationOrdered By: Gela Eller on 07-26-2023 Estimated GFR (CKD-EPI) 43.064 mL/Min [facility] Creatinine Clearance (Chem 41.35 [facility] Nucleated erythrocytes [Pres ence] in Blood by Automated countOrdered By: Gela Eller on 07-26-2023 Nucleated RBC Auto Ql (Bld) 0.2 /100{WBC} 0-0.5 [facility] Platelet mean volume Auto (B ld) [Entitic vol]Ordered By: Gela Eller on 07-26-2023 Platelet mean volume (Bld) [Entitic vol] 10.2 fL 6.6-10.1 [facility] Platelets Auto (Bld) [#/Vol] Ordered By: Gela Eller on 07-26-2023 Platelets (Bld) [#/Vol] 190 10*3/uL 150-450 [facility] Potassium [Moles/volume] in Serum or PlasmaOrdered By: Gela Eller on 07-26-2023 Potassium [Moles/Vol] 3.9 mmol/L 3.5-5.1 [facility] RBC Auto (Bld) [#/Vol]Ordere d By: Gela Eller on 07-26-2023 RBC (Bld) [#/Vol] 3.52 10*6/uL 3.90-5.60 [facility] Serum or plasma anion gap de terminationOrdered By: Gela Eller on 07-26-2023 Anion gap [Moles/Vol] 11.9 mmol/L 6.0-15.0 [facility] Sodium [Moles/volume] in Ser um or PlasmaOrdered By: Gela Eller on 07-26-2023 Sodium [Moles/Vol] 139 mmol/L 136-145 [facility] Urea nitrogen [Mass/volume] in Serum or PlasmaOrdered By: Gela Eller on 07-26-2023 Urea nitrogen [Mass/Vol] 29 mg/dL 03-18 [facility] WBC Auto (Bld) [#/Vol]Ordere d By: Gela Eller on 07-26-2023 WBC (Bld) [#/Vol] 5.0 10*3/uL 4.1-10.5 [facility] Alanine aminotransferase [En zymatic activity/volume] in Serum or PlasmaOrdered By: Gela Eller on 07-25-2023 ALT [Catalytic activity/Vol] 9 U/L [facility] Albumin [Mass/volume] in Ser um or Plasma by Bromocresol green (BCG) dye binding methoOrdered By: Gela Eller on 07-25-2023 Albumin BCG dye [Mass/Vol] 3.4 g/dL 3.5-5.7 [facility] Alkaline phosphatase [Enzyma tic activity/volume] in Serum or PlasmaOrdered By: Gela Eller on 07-25-2023 ALP [Catalytic activity/Vol] 60 U/L 34-104 [facility] Aspartate aminotransferase [ Enzymatic activity/volume] in Serum or PlasmaOrdered By: Gela Eller on 07-25-2023 AST [Catalytic activity/Vol] 16 U/L 13-39 [facility] Basic Metabolic Panelon 12-0 Anion gap [Moles/Vol] 11.8 mmol/L Normal 6.0-15.0 [facility] Comment on above: Order Comment: Comme nt pls call w K level Performed By: #### B MP ####[facility] [id number] [place] [id number] [facility] Calcium [Mass/Vol] 8.3 mg/dL Low 8.6-10.3 [facility] Comment on above: Order Comment: Comme nt pls call w K level Performed By: #### B MP ####[facility] [place] [id number] [facility] Chloride [Moles/Vol] 97 mmol/L Low 98-107 [facility] Comment on above: Order Comment: Comme nt pls call w K level Performed By: #### B MP ####[place] [id number] [place] [id number] [facility] CO2 [Moles/Vol] 31.8 mmol/L High 21.0-31.0 [facility] Comment on above: Order Comment: Comme nt pls call w K level Performed By: #### B MP ####[place] [id number] [facility] Creatinine [Mass/Vol] 3.42 mg/dL Significan t change up 0.70-1.30 [facility] Comment on above: Order Comment: Comme nt pls call w K level Performed By: #### B MP ####[place] [id number] [place] [id number] [facility] Creatinine Clr Calc Pharmacy 20.67 Normal [facility] Comment on above: Order Comment: Comme nt pls call w K level Result Comment: PERF ORMED BY: [facility] [address] [place] [id number] PATHOLOGIST [employer] RAHEL TREVINO M.D. Performed By: #### B MP ####[place] [id number] [facility] GFR/1.73 sq M.predicted MDRD (S/P/Bld) [Vol rate/Area] 18.745 mL/min/{1.73_m2} Normal [facility] Comment on above: Order Comment: Comme nt pls call w K level Performed By: #### B MP ####[address] [address] [facility] Glucose [Mass/Vol] 86 mg/dL Normal 70-100 [facility] Comment on above: Order Comment: Comme nt pls call w K level Result Comment: [place] om Glucose Reference Range is dependent on time and content of last meal. Glucose of more than 200 mg/dL in a nonstressed, ambulatory subject supports the diagnosis of Diabetes Mellitus. ADA recommended reference range Performed By: #### B MP ####[place] [id number] Potassium [Moles/Vol] 3.6 mmol/L Normal 3.5-5.1 [facility] Comment on above: Order Comment: Comme nt pls call w K level Performed By: #### B MP ####[facility] Sodium [Moles/Vol] 137 mmol/L Normal 136-145 [facility] Comment on above: Order Comment: Comme nt pls call w K level Performed By: #### B MP ####[place] [address] [address] Urea nitrogen [Mass/Vol] 50 mg/dL High 7-25 [facility] Comment on above: Order Comment: Comme nt pls call w K level Performed By: #### B MP ####[address] Bilirubin.total [Mass/volume ] in Serum or PlasmaOrdered By: Gela Eller on 07-25-2023 Bilirubin [Mass/Vol] 0.7 mg/dL 0.3-1.0 [facility] Complete Blood Count Auto Di ffon 07-25-2023 Basophils (Bld) [#/Vol] 0.1 10*3/uL Normal 0.0-0.2 [facility] Comment on above: Result Comment: PERF ORMED BY: [place] [id number] PATHOLOGIST [employer] INSTRU[employer] RAHEL TREVINO M.D. Performed By: #### C MP, CBC #### [facility] [address] Basophils/100 WBC (Bld) 0.9 % Normal . [facility] Comment on above: Performed By: #### C MP, CBC #### [facility] [address] Eosinophils (Bld) [#/Vol] 0.5 10*3/uL High 0.0-0.45 [facility] Comment on above: Performed By: #### C MP, CBC #### [facility] [address] Eosinophils/100 WBC (Bld) 7.7 % Normal . [facility] Comment on above: Performed By: #### C MP, CBC #### [facility] [address] Erythrocyte distribution width (RBC) [Ratio] 12.4 % Normal 12.0-14.8 [facility] Comment on above: Performed By: #### C MP, CBC #### [address] Hematocrit (Bld) [Volume fraction] 33.8 % Low 38.8-50.0 [facility] Comment on above: Performed By: #### C MP, CBC #### [address] Hemoglobin (Bld) [Mass/Vol] 11.3 g/dL Low 13.0-17.0 [facility] Comment on above: Performed By: #### C MP, CBC #### [address] Lymphocytes (Bld) [#/Vol] 0.6 10*3/uL Low 1.00-4.8 [facility] Comment on above: Performed By: #### C MP, CBC #### [address] Lymphocytes/100 WBC (Bld) 9.8 % Normal . [facility] Comment on above: Performed By: #### C MP, CBC #### [address] MCH (RBC) [Entitic mass] 29.8 pg Normal 27.5-35.2 [facility] Comment on above: Performed By: #### C MP, CBC #### [address] MCV (RBC) [Entitic vol] 89.0 fL Normal 83.5-101 [facility] Comment on above: Performed By: #### C MP, CBC #### [address] [address] [place] Mean Corpuscular HGB Conc 33.5 g/dL Normal 32.5-35.6 [facility] Comment on above: Performed By: #### C MP, CBC #### [address] Monocytes (Bld) [#/Vol] 1.3 10*3/uL High 0.0-0.8 [facility] Comment on above: Performed By: #### C MP, CBC #### [address] Monocytes/100 WBC (Bld) 21.3 % Normal . [facility] Comment on above: Performed By: #### C MP, CBC #### [address] Neutrophils (Bld) [#/Vol] 3.6 10*3/uL Normal 1.8-7.7 [facility] Comment on above: Performed By: #### C MP, CBC #### [address] Neutrophils/100 WBC (Bld) 60.3 % Normal . [facility] Comment on above: Performed By: #### C MP, CBC #### [address] NRBC% 0.1 /100{WBC} Normal 0-0.5 [facility] Comment on above: Performed By: #### C MP, CBC #### [address] Platelet mean volume (Bld) [Entitic vol] 10.7 fL High 6.6-10.1 [facility] Comment on above: Performed By: #### C MP, CBC #### [address] Platelets (Bld) [#/Vol] 188 10*3/uL Significant change down 150-450 [facility] Comment on above: Performed By: #### C MP, CBC #### [address] RBC (Bld) [#/Vol] 3.80 10*6/uL Low 3.90-5.60 [facility] Comment on above: Performed By: #### C MP, CBC #### [address] WBC (Bld) [#/Vol] 5.9 10*3/uL Normal 4.1-10.5 [facility] Comment on above: Performed By: #### C MP, CBC #### [address] Comprehensive Metabolic Pane jefry 07-25-2023 Albumin [Mass/Vol] 3.4 g/dL Low 3.5-5.7 [facility] Comment on above: Performed By: #### C MP, CBC #### [address] Albumin/Globulin [Mass ratio] 1.3 {ratio} Normal [facility] Comment on above: Performed By: #### C MP, CBC #### [address] ALP [Catalytic activity/Vol] 60 U/L Normal 34-104 [facility] Comment on above: Performed By: #### C MP, CBC #### [address] ALT [Catalytic activity/Vol] 9 U/L Normal 7-52 [facility] Comment on above: Performed By: #### C MP, CBC #### [address] Anion gap [Moles/Vol] 11.5 mmol/L Normal 6.0-15.0 [facility] Comment on above: Performed By: #### C MP, CBC #### [address] AST [Catalytic activity/Vol] 16 U/L Normal 13-39 [facility] Comment on above: Performed By: #### C MP, CBC #### [address] Bilirubin [Mass/Vol] 0.7 mg/dL Normal 0.3-1.0 [facility] Comment on above: Performed By: #### C MP, CBC #### [facility] [address] Calcium [Mass/Vol] 8.6 mg/dL Normal 8.6-10.3 [facility] Comment on above: Performed By: #### C MP, CBC #### [facility] [address] Chloride [Moles/Vol] 98 mmol/L Normal 98-107 [facility] Comment on above: Performed By: #### C MP, CBC #### [facility] [address] CO2 [Moles/Vol] 31.4 mmol/L High 21.0-31.0 [facility] Comment on above: Performed By: #### C MP, CBC #### [address] Creatinine [Mass/Vol] 2.86 mg/dL Significan t change up 0.70-1.30 [facility] Comment on above: Performed By: #### C MP, CBC #### [address] Creatinine Clr Calc Pharmacy 24.72 [facility] Comment on above: Result Comment: PERF ORMED BY: [place] [id number] PATHOLOGIST [employer] RAHEL TREVINO M.D. Performed By: #### C MP, CBC #### [facility] [address] [place] [address] [place] GFR/1.73 sq M.predicted MDRD (S/P/Bld) [Vol rate/Area] 23.231 mL/min/{1.73_m2} [facility] Comment on above: Performed By: #### C MP, CBC #### [facility] [address] [place] [address] [place] Globulin (S) [Mass/Vol] 2.7 g/dL [facility] Comment on above: Performed By: #### C MP, CBC #### [facility] [address] Glucose [Mass/Vol] 81 mg/dL Normal 70-100 [facility] Comment on above: Result Comment: [place] Glucose Reference Range is dependent on time and content of last meal. Glucose of more than 200 mg/dL in a nonstressed, ambulatory subject supports the diagnosis of Diabetes Mellitus. ADA recommended reference range Performed By: #### C MP, CBC #### [facility] [address] Potassium [Moles/Vol] 3.9 mmol/L Normal 3.5-5.1 [facility] Comment on above: Performed By: #### C MP, CBC #### [facility] [address] Protein [Mass/Vol] 6.1 g/dL Significant change down 6.4-8.9 [facility] Comment on above: Performed By: #### C MP, CBC #### [facility] [address] Sodium [Moles/Vol] 137 mmol/L Normal 136-145 [facility] Comment on above: Performed By: #### C MP, CBC #### [facility] [address] [place] [address] [place] Urea nitrogen [Mass/Vol] 44 mg/dL High 7-25 [facility] Comment on above: Performed By: #### C MP, CBC #### [facility] [address] [place] [address] [place] Creatinine, Urine (Random)on 07-25-2023 Creatinine, Urine (Random) 141.0 mg/dL High 14.0-26.0 [facility] Comment on above: Performed By: #### U NA, UCREA #### [facility] [address] [place] [address] [place] Globulin Calc (S) [Mass/Vol] Ordered By: Gela Eller on 07-25-2023 Globulin (S) [Mass/Vol] 2.7 g/dL [facility] Jefry 07-25-2023 L ------ Specimen: [id number] Received: 07/25/23 Status: ANT Goyal Num: [id number] Spec Type: Surgical Subm Dr: Nohemy Linder MD Tissues: A Duodenum - Biopsy (DUODENUM BX) B Gastric Biopsy (GASTRIC BX) Procedures: HE/Louise, Gross/Micro L4/2, H PYLORI Age/ Patient Sex Location Account Attending Physician Aisha Julien/Radha [id number] Gela Eller MD SPEC NUM: [id number] RECD: 07/25/23 STATUS: ANT GOYAL NUM: [id number] ALLISON: 07/25/23- [facility] DR: Nohemy Linder MD ENTERED: 07/25/23 [facility] DR: SPEC TYPE: Surgical DEPT: S ORDERED: [...] infection Clinical Information Dizzy, abnormal labs Specimen: [id number] Received: 07/25/23 Status: ANT Castro Num: [id number] Spec Type: Surgical Subm Dr: Nohemy Linder MD Tissues: A Duodenum - Biopsy (DUODENUM BX) B Gastric Biopsy (GASTRIC BX) Procedures: HE/4, Gross/Micro L4/2, H PYLORI Patient: Aisha Julien Naveen [id number] (Continued) Specimen: [id number] Received: 07/25/23 (Continued) Signed (signature on file) Vignesh Koehler MD 07/28/231999 Specimen: [id number] Received: 07/25/23 Status: ANT Caspereyal Num: [id number] Spec Type: Surgical Subm Dr: Nohemy Linder MD Tissues: A Duodenum - Biopsy (DUODENUM BX) B Gastric Biopsy (GASTRIC BX) Procedures: HE/4, Gross/Micro L4/2, H PYLORI Patient: WilyAisha L [id number] (Continued) Specimen: [id number] Received: 07/25/23 (Continued) Gross Description A. Received [...] microscopic examination confirms the diagnosis. CPT Codes 38272k2, [id number] Specimen: [id number] Received: 07/25/23 Status: ANT Goyal Num: [id number] Spec Type: Surgical Subm Dr: Nohemy Linder MD Tissues: A Duodenum - Biopsy (DUODENUM BX) B Gastric Biopsy (GASTRIC BX) Procedures: HE/4, Gross/Micro L4/2, H PYLORI Patient: Aisha Julien [id number] (Continued) Signed (signature on file) Vignesh Koehler MD 07/28/231999 Normal [facility] Protein [Mass/volume] in Ser um or PlasmaOrdered By: Gela Eller on 07-25-2023 Protein [Mass/Vol] 6.1 g/dL 6.4-8.9 [facility] Comment on above: Delta: 7.8 on -1228 Serum or plasma albumin/glob ulin mass ratioOrdered By: Gela Eller on 07-25-2023 Albumin/Globulin [Mass ratio] 1.3 {ratio} [facility] Sodium, Urine (Random)on Sodium (U) [Moles/Vol] 41 mmol/L Normal [facility] Comment on above: Result Comment: No r eference range established PERFORMED BY: [facility] [address] [place] [address] PATHOLOGIST [employer] INSTRUCTOR RAHEL TREVINO M.D. Performed By: #### U NACHERRY #### [facility] [address] Alanine aminotransferase [En zymatic activity/volume] in Serum or PlasmaOrdered By: Jean Paul Gutiérrez on 07-24-2023 ALT [Catalytic activity/Vol] 12 U/L 7-52 [facility] Albumin [Mass/volume] in Ser um or Plasma by Bromocresol green (BCG) dye binding methoOrdered By: Jean Paul Gutiérrez on 07-24-2023 Albumin BCG dye [Mass/Vol] 4.3 g/dL 3.5-5.7 [facility] Alkaline phosphatase [Enzyma tic activity/volume] in Serum or PlasmaOrdered By: Jean Paul Gutiérrez on 07-24-2023 ALP [Catalytic activity/Vol] 72 U/L 34-104 [facility] Aspartate aminotransferase [ Enzymatic activity/volume] in Serum or PlasmaOrdered By: Jean Paul Gutiérrez on 07-24-2023 AST [Catalytic activity/Vol] 24 U/L 13-39 [facility] Automated erythrocytes count in urine sediment (number/area)Ordered By: Jean Paul Gutiérrez on 07-24-2023 RBC Auto (Urine sed) [#/Area] 5-9 [HPF] 0-4 [facility] Automated leukocytes count i n urine sediment (number/area)Ordered By: Jean Paul Gutiérrez on 07-24-2023 WBC Auto (Urine sed) [#/Area] 0-1 [HPF] 0-4 [facility] Basic Metabolic Panelon 06-27 Anion gap [Moles/Vol] 18.0 mmol/L High 6.0-15.0 [facility] Comment on above: Performed By: #### C MP, CBC #### [facility] [address] [place] [address] [place] Calcium [Mass/Vol] 9.6 mg/dL Normal 8.6-10.3 [facility] Comment on above: Performed By: #### C MP, CBC #### [facility] [address] [place] [address] [place] Chloride [Moles/Vol] 84 mmol/L Low 98-107 [facility] Comment on above: Performed By: #### C MP, CBC #### [facility] [address] [place] [address] [place] CO2 [Moles/Vol] 34.9 mmol/L High 21.0-31.0 [facility] Comment on above: Performed By: #### C MP, CBC #### [facility] [address] [place] [address] [place] Creatinine [Mass/Vol] 4.59 mg/dL High 0.70-1.30 [facility] Comment on above: Performed By: #### C MP, CBC #### [facility] [address] [place] [address] [place] Creatinine Clr Calc Pharmacy 15.40 [facility] Comment on above: Performed By: #### C MP, CBC #### [facility] [address] [place] [address] [place] GFR/1.73 sq M.predicted MDRD (S/P/Bld) [Vol rate/Area] 13.168 mL/min/{1.73_m2} [facility] Comment on above: Performed By: #### C MP, CBC #### [address] Glucose [Mass/Vol] 128 mg/dL High 70-100 [facility] Comment on above: Result Comment: [place] Glucose Reference Range is dependent on time and content of last meal. Glucose of more than 200 mg/dL in a nonstressed, ambulatory subject supports the diagnosis of Diabetes Mellitus. ADA recommended reference range Performed By: #### C MP, CBC #### [address] Potassium [Moles/Vol] 2.9 mmol/L Off scale low 3.5-5.1 [facility] Comment on above: Result Comment: Crit ical Result Called to and read back by: ANDREAS CARABALLO at: 07/24/2023 13:30:58 by:MLG Performed By: #### C MP, CBC #### [address] Sodium [Moles/Vol] 134 mmol/L Low 136-145 [facility] Comment on above: Performed By: #### C MP, CBC #### [address] Urea nitrogen [Mass/Vol] 56 mg/dL High 7-25 [facility] Comment on above: Performed By: #### C MP, CBC #### [place] [address] [place] Basophils Auto (Bld) [#/Vol] Ordered By: Jean Paul Gutiérrez on 07-24-2023 Basophils (Bld) [#/Vol] 0.0 10*3/uL 0.0-0.2 [facility] Basophils/100 WBC Auto (Bld) Ordered By: Jean Paul Gutiérrez on 07-24-2023 Basophils/100 WBC (Bld) 0.5 % . [facility] Bilirubin Test strip Ql (U)O rdered By: Jean Paul Gutiérrez on 07-24-2023 Bilirubin Ql (U) Negative Negative [facility] Bilirubin.direct [Mass/volum e] in Serum or PlasmaOrdered By: Jean Paul Gutiérrez on 07-24-2023 Bilirubin.direct [Mass/Vol] 0.20 mg/dL 0.03-0.18 [facility] Bilirubin.total [Mass/volume ] in Serum or PlasmaOrdered By: Jean Paul Gutiérrez on 07-24-2023 Bilirubin [Mass/Vol] 0.8 mg/dL 0.3-1.0 [facility] CT abdomen pelvis wo conon 1 09-23-2022 CT abdomen pelvis wo [facility] [place] [address] CT Scan Report Signed Patient: Aisha Julien MR#: [id number] 79 : 1955 Acct:[id number] Age/Sex: 68 / M ADM Date: 07/24/23 Loc: ER Room: Type: [facility] ER Attending Dr: Copies to: [...] Santa Jr., Antonino07/24/2023 2:43 PM Dictation Location: [place] [address] Transcribed By: [facility] 07/24/23 1443 Dictated By: Lebron Santa Jr, DO 07/24/23 1428 Signed By: 07/24/23 1443 Normal [facility] Calcium [Mass/volume] in Ser um or PlasmaOrdered By: Jean Paul Gutiérrez on 07-24-2023 Calcium [Mass/Vol] 9.6 mg/dL 8.6-10.3 [facility] Carbon dioxide, total [Moles /volume] in Serum or PlasmaOrdered By: Jean Paul Gutiérrez on 07-24-2023 CO2 [Moles/Vol] 34.9 mmol/L 21.0-31.0 [facility] Chloride [Moles/volume] in S sadi or PlasmaOrdered By: Jean Paul Gutiérrez on 07-24-2023 Chloride [Moles/Vol] 84 mmol/L 98-107 [facility] Color Auto (U)Ordered By: Dickson Gutiérrez on 07-24-2023 Color (U) Yellow Yellow [facility] Complete Blood Count Auto Di ffon 07-24-2023 Basophils (Bld) [#/Vol] 0.0 10*3/uL Normal 0.0-0.2 [facility] Comment on above: Result Comment: PERF ORMED BY: [place] [id number] PATHOLOGIST [employer] INSTRUCTOR RAHEL TREVINO M.D. Performed By: #### C MP, CBC #### [address] Basophils/100 WBC (Bld) 0.5 % Normal . [facility] Comment on above: Performed By: #### C MP, CBC #### [place] [address] [place] Eosinophils (Bld) [#/Vol] 0.1 10*3/uL Normal 0.0-0.45 [facility] Comment on above: Performed By: #### C MP, CBC #### [place] [address] [place] Eosinophils/100 WBC (Bld) 1.0 % Normal . [facility] Comment on above: Performed By: #### C MP, CBC #### [address] Erythrocyte distribution width (RBC) [Ratio] 12.4 % Normal 12.0-14.8 [facility] Comment on above: Performed By: #### C MP, CBC #### [address] Hematocrit (Bld) [Volume fraction] 40.5 % Normal 38.8-50.0 [facility] Comment on above: Performed By: #### C MP, CBC #### [address] Hemoglobin (Bld) [Mass/Vol] 13.7 g/dL Normal 13.0-17.0 [facility] Comment on above: Performed By: #### C MP, CBC #### [address] Lymphocytes (Bld) [#/Vol] 0.9 10*3/uL Low 1.00-4.8 [facility] Comment on above: Performed By: #### C MP, CBC #### [address] Lymphocytes/100 WBC (Bld) 12.6 % Normal . [facility] Comment on above: Performed By: #### C MP, CBC #### [address] MCH (RBC) [Entitic mass] 29.8 pg Normal 27.5-35.2 [facility] Comment on above: Performed By: #### C MP, CBC #### [address] MCV (RBC) [Entitic vol] 88.1 fL Normal 83.5-101 [facility] Comment on above: Performed By: #### C MP, CBC #### [address] Mean Corpuscular HGB Conc 33.8 g/dL Normal 32.5-35.6 [facility] Comment on above: Performed By: #### C MP, CBC #### [address] Monocytes (Bld) [#/Vol] 0.8 10*3/uL Normal 0.0-0.8 [facility] Comment on above: Performed By: #### C MP, CBC #### [facility] [address] [place] [address] [place] Monocytes/100 WBC (Bld) 21.73 % High 0.00-20.00 [facility] Comment on above: Result Comment: For adults in ED, MDW > 20.0 may be associated with a higher risk of sepsis during the first 12 hrs of hospital admission Performed By: #### C MP, CBC #### [facility] [address] Monocytes/100 WBC (Bld) 10.3 % Normal . [facility] Comment on above: Performed By: #### C MP, CBC #### [address] Neutrophils (Bld) [#/Vol] 5.5 10*3/uL Normal 1.8-7.7 [facility] Comment on above: Performed By: #### C MP, CBC #### [place] [address] [place] Neutrophils/100 WBC (Bld) 75.6 % Normal . [facility] Comment on above: Performed By: #### C MP, CBC #### [place] [address] [place] NRBC% 0.2 /100{WBC} Normal 0-0.5 [facility] Comment on above: Performed By: #### C MP, CBC #### [facility] [address] [place] [address] [place] Platelet mean volume (Bld) [Entitic vol] 10.8 fL High 6.6-10.1 [facility] Comment on above: Performed By: #### C MP, CBC #### [facility] [address] [place] [id number] [place] Platelets (Bld) [#/Vol] 256 10*3/uL Normal 150-450 [facility] Comment on above: Performed By: #### C MP, CBC #### [address] [place] [address] [place] RBC (Bld) [#/Vol] 4.60 10*6/uL Normal 3.90-5.60 [facility] Comment on above: Performed By: #### C MP, CBC #### [facility] [address] [place] [id number] [place] WBC (Bld) [#/Vol] 7.3 10*3/uL Normal 4.1-10.5 [facility] Comment on above: Performed By: #### C MP, CBC #### [facility] [address] [place] [address] [place] Creatinine [Mass/volume] in Serum or PlasmaOrdered By: Jean Paul Gutiérrez on 07-24-2023 Creatinine [Mass/Vol] 4.59 mg/dL 0.70-1.30 [facility] Creatinine [Mass/volume] in UrineOrdered By: Gela Eller on 07-24-2023 Creatinine (U) [Mass/Vol] 141.0 mg/dL 14.0-26.0 [facility] Dipstick and Microscopicon 1 09-23-2022 Appearance (U) Clear Normal Clear [facility] Comment on above: Order Comment: Name Collection Type:: Clean-Voided Midstream Performed By: #### C MP, CBC #### [place] [address] [place] Bacteria,Urine None Seen Normal None Seen [facility] Comment on above: Order Comment: Name Collection Type:: Clean-Voided Midstream Performed By: #### C MP, CBC #### [facility] [address] [place] [address] [place] Bilirubin,Urine Negative Normal Negative [facility] Comment on above: Order Comment: Name Collection Type:: Clean-Voided Midstream Performed By: #### C MP, CBC #### [facility] [address] [place] [id number] [place] Color (U) Yellow Normal Yellow [facility] Comment on above: Order Comment: Name Collection Type:: Clean-Voided Midstream Performed By: #### C MP, CBC #### [facility] [address] Glucose Ql (U) Normal Normal Normal [facility] Comment on above: Order Comment: Name Collection Type:: Clean-Voided Midstream Performed By: #### C MP, CBC #### [address] Hyaline Casts,Urine None Seen Normal 0-8 [facility] Comment on above: Order Comment: Name Collection Type:: Clean-Voided Midstream Result Comment: PERF ORMED BY: [place] [id number] PATHOLOGIST [employer] INSTRUCTOR RAHEL TREVINO M.D. Performed By: #### C MP, CBC #### [address] Ketones Ql (U) Trace High Negative [facility] Comment on above: Order Comment: Name Collection Type:: Clean-Voided Midstream Performed By: #### C MP, CBC #### [address] Leukocyte esterase Test strip Ql (U) Negative Normal Negative [facility] Comment on above: Order Comment: Name Collection Type:: Clean-Voided Midstream Performed By: #### C MP, CBC #### [address] Nitrite,Urine Negative Normal Negative [facility] Comment on above: Order Comment: Name Collection Type:: Clean-Voided Midstream Performed By: #### C MP, CBC #### [place] [address] [place] Occult Blood,Urine Negative Normal Negative [facility] Comment on above: Order Comment: Name Collection Type:: Clean-Voided Midstream Result Comment: PERF ORMED BY: [place] [id number] PATHOLOGIST [employer] INSTRUCTOR RAHEL TREVINO M.D. Performed By: #### C MP, CBC #### [place] [address] [place] pH (U) 5.5 [pH] Normal 5.0-9.0 [facility] Comment on above: Order Comment: Name Collection Type:: Clean-Voided Midstream Performed By: #### C MP, CBC #### [address] Protein (U) [Mass/Vol] 30 mg/dL High Negative [facility] Comment on above: Order Comment: Name Collection Type:: Clean-Voided Midstream Performed By: #### C MP, CBC #### [address] RBC,Urine 5-9 High 0-4 [facility] Comment on above: Order Comment: Name Collection Type:: Clean-Voided Midstream Performed By: #### C MP, CBC #### [address] Specificy [place],Urine 1.015 Normal 1.001-1.03 0 [facility] Comment on above: Order Comment: Name Collection Type:: Clean-Voided Midstream Performed By: #### C MP, CBC #### [address] Squamous Epithelial Cell,Urine None Seen Normal 0-2 [facility] Comment on above: Order Comment: Name Collection Type:: Clean-Voided Midstream Performed By: #### C MP, CBC #### [address] Urobilinogen,Urine Normal Normal Normal [facility] Comment on above: Order Comment: Name Collection Type:: Clean-Voided Midstream Performed By: #### C MP, CBC #### [place] [address] [place] WBC LM.HPF (Urine sed) [#/Area] 0 /[HPF] Normal 0-4 [facility] Comment on above: Order Comment: Name Collection Type:: Clean-Voided Midstream Performed By: #### C MP, CBC #### [address] ECG 12 lead ECGon 07-24-2023 ECG 12 lead ECG [facility] Main [place] [id number] Electrocardiograph Report Signed Patient: Aisha Julien MR#: [id number] 79 : 1955 Acct:[id number] Age/Sex: 68 / M ADM Date: 07/24/23 Loc: Room: [address] [place] [address] Type: ADM IN Attending Dr: Gela Eller [...] rhythm Confirmed by JEAN PAUL GUTIÉRREZ DO ([id number]) on 07/25/2023 4:32:20 PM Referred By: Electronically Signed By:JEAN PAUL GUTIÉRREZ DO Transcribed By: MUS Signed By Jean Paul Gutiérrez DO 07/25 1632 [facility] ECG 12 lead ECG [facility] Main [place] [id number] Electrocardiograph Report Signed Patient: Aisha Julien MR#: [id number] 79 : 1955 Acct:[id number] Age/Sex: 68 / M ADM Date: 07/24/23 Loc: ER Room: Type: [facility] ER Attending Dr: Ordering Provider: [...] lengthened Confirmed by JEAN PAUL GUTIÉRREZ DO ([id number]) on 07/24/2023 3:51:38 PM Referred By: Electronically Signed By:JEAN PAUL GUTIÉRREZ DO Transcribed By: MUS Signed By Jean Paul Gutiérrez DO 07/24 1551 Normal [facility] Eosinophils Auto (Bld) [#/Vo l]Ordered By: Jean Paul Gutiérrez on 07-24-2023 Eosinophils (Bld) [#/Vol] 0.1 10*3/uL 0.0-0.45 [facility] Eosinophils/100 WBC Auto (Bl d)Ordered By: Jean Paul Gutiérrez on 07-24-2023 Eosinophils/100 WBC (Bld) 1.0 % . [facility] Erythrocyte distribution wid th Auto (RBC) [Ratio]Ordered By: Jean Paul Gutiérrez on 07-24-2023 Erythrocyte distribution width (RBC) [Ratio] 12.4 % 12.0-14.8 [facility] Globulin Calc (S) [Mass/Vol] Ordered By: Jean Paul Gutiérrez on 07-24-2023 Globulin (S) [Mass/Vol] 3.5 g/dL [facility] Glucose [Mass/volume] in Ser um or PlasmaOrdered By: Jean Paul Gutiérrez on 07-24-2023 Glucose [Mass/Vol] 128 mg/dL 70-100 [facility] Comment on above: ADA recommended refe rence rangeRandom Glucose Reference Range is dependent on time and content of last meal. Glucose of more than 200 mg/dL in a nonstressed, ambulatory subject supports the diagnosis of Diabetes Mellitus. Hematocrit Auto (Bld) [Volum e fraction]Ordered By: Jean Paul Gutiérrez on 07-24-2023 Hematocrit (Bld) [Volume fraction] 40.5 % 38.8-50.0 [facility] Hemoglobin [Mass/volume] in BloodOrdered By: Jean Paul Gutiérrez on 07-24-2023 Hemoglobin (Bld) [Mass/Vol] 13.7 g/dL 13.0-17.0 [facility] Hepatic Panelon 07-24-2023 Albumin [Mass/Vol] 4.3 g/dL Normal 3.5-5.7 [facility] Comment on above: Performed By: #### C MP, CBC #### [facility] [address] [place] [address] Albumin/Globulin [Mass ratio] 1.2 {ratio} Normal [facility] Comment on above: Performed By: #### C MP, CBC #### [address] ALP [Catalytic activity/Vol] 72 U/L Normal 34-104 [facility] Comment on above: Performed By: #### C MP, CBC #### [address] ALT [Catalytic activity/Vol] 12 U/L Normal 7-52 [facility] Comment on above: Performed By: #### C MP, CBC #### [address] AST [Catalytic activity/Vol] 24 U/L Normal 13-39 [facility] Comment on above: Performed By: #### C MP, CBC #### [address] Bilirubin [Mass/Vol] 0.8 mg/dL Normal 0.3-1.0 [facility] Comment on above: Performed By: #### C MP, CBC #### [address] Bilirubin,Indirect 0.6 mg/dL Normal [facility] Comment on above: Performed By: #### C MP, CBC #### [address] Bilirubin.indirect [Mass/Vol] 0.20 mg/dL High 0.03-0.18 [facility] Comment on above: Performed By: #### C MP, CBC #### [facility] [address] [place] [address] Globulin (S) [Mass/Vol] 3.5 g/dL Normal [facility] Comment on above: Performed By: #### C MP, CBC #### [facility] [address] [place] [address] Protein [Mass/Vol] 7.8 g/dL Normal 6.4-8.9 [facility] Comment on above: Performed By: #### C MP, CBC #### [facility] [address] INR in Platelet poor plasma by Coagulation assayOrdered By: Jean Paul Gutiérrez on 07-24-2023 INR Coag (PPP) [Relative time] 1.0 {INR} [facility] Comment on above: INR Therapeutic [...] on 07-24-2023 Ketones (U) [Mass/Vol] Trace Negative [facility] Laboratory - UrinalysisOrder ed By: Jean Paul Gutiérrez on 07-24-2023 Hyaline casts LM Ql (Urine sed) None seen [LPF] 0-8 [facility] Leukocytes [#/volume] correc johnnie for nucleated erythrocytes in Blood by Automated counOrdered By: Jean Paul Gutiérrez on 07-24-2023 WBC corrected for nucl RBC Auto (Bld) [#/Vol] 7.3 10*3/uL 4.1-10.5 [facility] Lipaseon 07-24-2023 Lipase [Catalytic activity/Vol] 90.0 U/L High 11.0-82.0 [facility] Comment on above: Result Comment: PERF ORMED BY: [address] [place] [address] PATHOLOGIST [employer] INSTRUCTOR RAHEL TREVINO M.D. Performed By: #### C MP, CBC #### [facility] [address] [place] [address] Lipase [Enzymatic activity/v olume] in Serum or PlasmaOrdered By: Jean Paul Gutiérrez on 07-24-2023 Lipase [Catalytic activity/Vol] 90.0 U/L 11.0-82.0 [facility] Lymphocytes Auto (Bld) [#/Vo l]Ordered By: Jean Paul Gutiérrez on 07-24-2023 Lymphocytes (Bld) [#/Vol] 0.9 10*3/uL 1.00-4.8 [facility] Lymphocytes/100 WBC Auto (Bl d)Ordered By: Jean Paul Gutiérrez on 07-24-2023 Lymphocytes/100 WBC (Bld) 12.6 % . [facility] MCH Auto (RBC) [Entitic mass ]Ordered By: Jean Paul Gutiérrez on 07-24-2023 MCH (RBC) [Entitic mass] 29.8 pg 27.5-35.2 [facility] MCHC Auto (RBC) [Mass/Vol]Or dered By: Jean Paul Gutiérrez on 07-24-2023 MCHC (RBC) [Mass/Vol] 33.8 g/dL 32.5-35.6 [facility] MCV Auto (RBC) [Entitic vol] Ordered By: Jean Paul Gutiérrez on 07-24-2023 MCV (RBC) [Entitic vol] 88.1 fL 83.5-101 [facility] Magnesiumon 07-24-2023 Magnesium [Mass/Vol] 2.1 mg/dL Normal 1.9-2.7 [facility] Comment on above: Performed By: #### C MP, CBC #### [address] Magnesium [Mass/volume] in S sadi or PlasmaOrdered By: Gela Eller on 07-24-2023 Magnesium [Mass/Vol] 2.1 mg/dL 1.9-2.7 [facility] Monocyte distribution width [Entitic volume] in Blood by AutomatedOrdered By: Jean Paul Gutiérrez on 07-24-2023 Monocyte distribution width Auto (Bld) [Entitic vol] 21.73 % 0.00-20.00 [facility] Comment on above: For adults in ED, MD W > 20.0 may be associated with a higher risk of sepsis during the first 12 hrs of hospital admission Monocytes Auto (Bld) [#/Vol] Ordered By: Jean Paul Gutiérrez on 07-24-2023 Monocytes (Bld) [#/Vol] 0.8 10*3/uL 0.0-0.8 [facility] Monocytes/100 WBC Auto (Bld) Ordered By: Jean Paul Gutiérrez on 07-24-2023 Monocytes/100 WBC (Bld) 10.3 % . [facility] Neutrophils Auto (Bld) [#/Vo l]Ordered By: Jean Paul Gutiérrez on 07-24-2023 Neutrophils (Bld) [#/Vol] 5.5 10*3/uL 1.8-7.7 [facility] Neutrophils/100 WBC Auto (Bl d)Ordered By: Jean Paul Gutiérrez on 07-24-2023 Neutrophils/100 WBC (Bld) 75.6 % . [facility] Nitrite Test strip Ql (U)Ord ered By: Jean Paul Gutiérrez on 07-24-2023 Nitrite Ql (U) Negative Negative [facility] No Panel InformationOrdered By: Jean Paul Gutiérrez on 07-24-2023 Estimated GFR (CKD-EPI) 13.168 mL/Min [facility] Creatinine Clearance (Chem 15.40 [facility] Nucleated erythrocytes [Pres ence] in Blood by Automated countOrdered By: Jean Paul Gutiérrez on 07-24-2023 Nucleated RBC Auto Ql (Bld) 0.2 /100{WBC} 0-0.5 [facility] Platelet mean volume Auto (B ld) [Entitic vol]Ordered By: Jean Paul Gutiérrez on 07-24-2023 Platelet mean volume (Bld) [Entitic vol] 10.8 fL 6.6-10.1 [facility] Platelets Auto (Bld) [#/Vol] Ordered By: Jean Paul Gutiérrez on 07-24-2023 Platelets (Bld) [#/Vol] 256 10*3/uL 150-450 [facility] Potassium [Moles/volume] in Serum or PlasmaOrdered By: Jean Paul Gutiérrez on 07-24-2023 Potassium [Moles/Vol] 2.9 mmol/L 3.5-5.1 [facility] Comment on above: Critical Result Call ed to and read back by: ANDREAS CARABALLO at: 07/24/2023 13:30:58 by:MLG Protein Auto test strip (U) [Mass/Vol]Ordered By: Jean Paul Gutiérrez on 07-24-2023 Protein (U) [Mass/Vol] 30 mg/dL Negative [facility] Protein [Mass/volume] in Ser um or PlasmaOrdered By: Jean Paul Gutiérrez on 07-24-2023 Protein [Mass/Vol] 7.8 g/dL 6.4-8.9 [facility] Prothrombin Time INRon 07-24 INR Coag (PPP) [Relative time] 1.0 {INR} Normal [facility] Comment on above: Result Comment: [...] heart valves: 3 - 4.5 PERFORMED BY: [place] [id number] PATHOLOGIST SAT ACT INSTRUCTOR RAHEL TREVINO M.D. Performed By: #### C MP, CBC #### [facility] [address] [place] [address] PT Coag (PPP) [Time] 12.2 s Normal 9.0-12.9 [facility] Comment on above: Result Comment: A he matocrit value greater than 55% may lead to inaccurate results in coagulation testing. Patients having hematocrit values >55% require a special collection tube for coagulation studies. Please contact the laboratory at [phone] for redraw instructions. Performed By: #### C MP, CBC #### [facility] [address] [place], [place] [id number] [facility] Prothrombin time (PT)Ordered By: Jean Paul Gutiérrez on 07-24-2023 PT Coag (PPP) [Time] 12.2 s 9.0-12.9 [facility] Comment on above: A hematocrit value g reater than 55% may lead to inaccurate results in coagulation testing. Patients having hematocrit values >55% require a special collection tube for coagulation studies. Please contact the laboratory at [phone] for redraw instructions. RBC Auto (Bld) [#/Vol]Ordere d By: Jean Paul Gutiérrez on 07-24-2023 RBC (Bld) [#/Vol] 4.60 10*6/uL 3.90-5.60 [facility] Serum or plasma albumin/glob ulin mass ratioOrdered By: Jean Paul Gutiérrez on 07-24-2023 Albumin/Globulin [Mass ratio] 1.2 {ratio} [facility] Serum or plasma anion gap de terminationOrdered By: Jean Paul Gutiérrez on 07-24-2023 Anion gap [Moles/Vol] 18.0 mmol/L 6.0-15.0 [facility] Serum or plasma non-glucuron idated bilirubin measurement (mass/volume)Ordered By: Jean Paul Gutiérrez on 07-24-2023 Bilirubin.indirect [Mass/Vol] 0.6 mg/dL [facility] Sodium [Moles/volume] in Ser um or PlasmaOrdered By: Jean Paul Gutiérrez on 07-24-2023 Sodium [Moles/Vol] 134 mmol/L 136-145 [facility] Sodium [Moles/volume] in Uri neOrdered By: Gela Eller on 07-24-2023 Sodium (U) [Moles/Vol] 41 mmol/L [facility] Comment on above: No reference range e stablished Specific gravity Auto test s trip (U) [Rel density]Ordered By: Jean Paul Gutiérrez on 07-24-2023 Specific gravity (U) [Rel density] 1.015 1.001-1.03 0 [facility] Squamous epithelial cells de tection in urine sediment by light microscopyOrdered By: Jean Paul Gutiérrez on 07-24-2023 Epithelial cells.squamous LM Ql (Urine sed) None seen [HPF] 0-2 [facility] Troponin I High Sensitivityo n 07-24-2023 Troponin I High Sensitivity 11.8 pg/mL Normal 0.0-20.0 [facility] Comment on above: Result Comment: PERF ORMED BY: [facility] [address] [place] [address] PATHOLOGIST SAT ACT INSTRUCTOR RAHEL TREVINO M.D. Performed By: #### C MP, CBC #### [address] Troponin I.cardiac [Mass/vol ume] in Serum or Plasma by Detection limit <= 0.01 ng/Ordered By: Jean Paul Gutiérrez on 07-24-2023 Troponin I.cardiac DL <= 0.01 ng/mL [Mass/Vol] 11.8 pg/mL 0.0-20.0 [facility] Urea nitrogen [Mass/volume] in Serum or PlasmaOrdered By: Jean Paul Gutiérrez on 07-24-2023 Urea nitrogen [Mass/Vol] 56 mg/dL 7-25 [facility] Urine bacteria detection by automated methodOrdered By: Jean Paul Gutiérrez on 07-24-2023 Bacteria Auto Ql (U) None seen None Seen [facility] Urine clarity by refractomet ry automatedOrdered By: Jean Paul Gutiérrez on 07-24-2023 Clarity Refractometry automated (U) Clear Clear [facility] Urine glucose measurement by automated test strip (mass/volume)Ordered By: Jean Paul Gutiérrez on 07-24-2023 Glucose Auto test strip (U) [Mass/Vol] Normal mg/dL Normal [facility] Urine hemoglobin detection b y automated test stripOrdered By: Jean Paul Gutiérrez on 07-24-2023 Hemoglobin Auto test strip Ql (U) Negative Negative [facility] Urine leukocyte esterase det ection by automated test stripOrdered By: Jean Paul Gutiérrez on 07-24-2023 Leukocyte esterase Auto test strip Ql (U) Negative Negative [facility] Urobilinogen Auto test strip (U) [Mass/Vol]Ordered By: Jean Paul Gutiérrez on 07-24-2023 Urobilinogen (U) [Mass/Vol] Normal mg/dL Normal [facility] WBC Auto (Bld) [#/Vol]Ordere d By: Jean Paul Gutiérrez on 07-24-2023 WBC (Bld) [#/Vol] 7.3 10*3/uL 4.1-10.5 [facility] pH Auto test strip (U)Ordere d By: Jean Paul Gutiérrez on 07-24-2023 pH (U) 5.5 [pH] 5.0-9.0 [facility] Tobacco Screening.on 023 Tobacco use status [facility]PHS b) No [facility] [address] DO Work Phone: Activated partial thrombopla stin time (aPTT) in platelet poor plasma by coagulation aOrdered By: Joselito Madsen on 01-15-2023 aPTT Coag (PPP) [Time] 29.1 s 25.1-36.5 [facility] Basophils Auto (Bld) [#/Vol] Ordered By: Joselito Madsen on 01-15-2023 Basophils (Bld) [#/Vol] 0.0 10*3/uL 0.0-0.2 [facility] Basophils/100 WBC Auto (Bld) Ordered By: Joselito Madsen on 01-15-2023 Basophils/100 WBC (Bld) 0.7 % . [facility] Blood Urea Nitrogenon 2022 Urea nitrogen [Mass/Vol] 19 mg/dL Normal 7-25 [facility] Comment on above: Performed By: #### C REAT, PP, LYTES, LIPID, CBC, BUN #### [address] Carbon dioxide, total [Moles /volume] in Serum or PlasmaOrdered By: Joselito Madsen on 01-15-2023 CO2 [Moles/Vol] 24.1 mmol/L 21.0-31.0 [facility] Chloride [Moles/volume] in S sadi or PlasmaOrdered By: Joselito Madsen on 01-15-2023 Chloride [Moles/Vol] 108 mmol/L 98-107 [facility] Cholesterol [Mass/volume] in Serum or PlasmaOrdered By: Joselito Madsen on 01-15-2023 Cholesterol [Mass/Vol] 123 mg/dL 140-200 [facility] Comment on above: Chol less than 200 m g/dl low riskChol 201-239 mg/dl borderline riskChol 240 mg/dl and greater high risk Cholesterol in LDL Calc [Mas s/Vol]Ordered By: Joselito Madsen on 01-15-2023 Cholesterol in LDL [Mass/Vol] 49 mg/dL 0-100 [facility] Comment on above: LDL ATP III CLASSIFI CATIONLDL less than 100 mg/dL OptimalLDL 100-129 mg/dL Near or above optimalLDL 130-159 mg/dL Borderline highLDL 160-189 mg/dL HighLDL greater than 189 mg/dL Very high Cholesterol in VLDL Calc [Ma ss/Vol]Ordered By: Joselito Madsen on 01-15-2023 Cholesterol in VLDL [Mass/Vol] 10 mg/dL [facility] Coagulation Profileon 2022 aPTT Coag (Bld) [Time] 29.1 s Normal 25.1-36.5 [facility] Comment on above: Result Comment: PERF ORMED BY: [place] [id number] PATHOLOGIST [employer] INSTRUCTOR RAHEL TREVINO M.D. Performed By: #### C REAT, PP, LYTES, LIPID, CBC, BUN #### [address] INR Coag (PPP) [Relative time] 1.0 {INR} Normal [facility] Comment on above: Result Comment: [...] REAT, PP, LYTES, LIPID, CBC, BUN #### [facility] [address] [place] [address] PT Coag (PPP) [Time] 11.0 s Normal 9.0-12.9 [facility] Comment on above: Performed By: #### C REAT, PP, LYTES, LIPID, CBC, BUN #### [address] Complete Blood Count Auto Di ffon 01-15-2023 Basophils (Bld) [#/Vol] 0.0 10*3/uL Normal 0.0-0.2 [facility] Comment on above: Result Comment: PERF ORMED BY: [place] [id number] PATHOLOGIST SAT ACT INSTRUCTOR RAHEL TREVINO M.D. Performed By: #### C REAT, PP, LYTES, LIPID, CBC, BUN #### [address] Basophils/100 WBC (Bld) 0.7 % Normal . [facility] Comment on above: Performed By: #### C REAT, PP, LYTES, LIPID, CBC, BUN #### [address] Eosinophils (Bld) [#/Vol] 0.5 10*3/uL High 0.0-0.45 [facility] Comment on above: Performed By: #### C REAT, PP, LYTES, LIPID, CBC, BUN #### [address] Eosinophils/100 WBC (Bld) 9.6 % Normal . [facility] Comment on above: Performed By: #### C REAT, PP, LYTES, LIPID, CBC, BUN #### [address] Erythrocyte distribution width (RBC) [Ratio] 13.3 % Normal 12.0-14.8 [facility] Comment on above: Performed By: #### C REAT, PP, LYTES, LIPID, CBC, BUN #### [address] Hematocrit (Bld) [Volume fraction] 38.8 % Normal 38.8-50.0 [facility] Comment on above: Performed By: #### C REAT, PP, LYTES, LIPID, CBC, BUN #### [address] Hemoglobin (Bld) [Mass/Vol] 12.7 g/dL Low 13.0-17.0 [facility] Comment on above: Performed By: #### C REAT, PP, LYTES, LIPID, CBC, BUN #### [address] Lymphocytes (Bld) [#/Vol] 1.0 10*3/uL Normal 1.00-4.8 [facility] Comment on above: Performed By: #### C REAT, PP, LYTES, LIPID, CBC, BUN #### [address] Lymphocytes/100 WBC (Bld) 19.2 % Normal . [facility] Comment on above: Performed By: #### C REAT, PP, LYTES, LIPID, CBC, BUN #### [address] MCH (RBC) [Entitic mass] 29.2 pg Normal 27.5-35.2 [facility] Comment on above: Performed By: #### C REAT, PP, LYTES, LIPID, CBC, BUN #### [address] MCV (RBC) [Entitic vol] 89.1 fL Normal 83.5-101 [facility] Comment on above: Performed By: #### C REAT, PP, LYTES, LIPID, CBC, BUN #### [address] Mean Corpuscular HGB Conc 32.7 g/dL Normal 32.5-35.6 [facility] Comment on above: Performed By: #### C REAT, PP, LYTES, LIPID, CBC, BUN #### [address] Monocytes (Bld) [#/Vol] 0.9 10*3/uL High 0.0-0.8 [facility] Comment on above: Performed By: #### C REAT, PP, LYTES, LIPID, CBC, BUN #### [address] Monocytes/100 WBC (Bld) 17.1 % Normal . [facility] Comment on above: Performed By: #### C REAT, PP, LYTES, LIPID, CBC, BUN #### [address] Neutrophils (Bld) [#/Vol] 2.7 10*3/uL Normal 1.8-7.7 [facility] Comment on above: Performed By: #### C REAT, PP, LYTES, LIPID, CBC, BUN #### [address] Neutrophils/100 WBC (Bld) 53.4 % Normal . [facility] Comment on above: Performed By: #### C REAT, PP, LYTES, LIPID, CBC, BUN #### [address] NRBC% 0.1 /100{WBC} Normal 0-0.5 [facility] Comment on above: Performed By: #### C REAT, PP, LYTES, LIPID, CBC, BUN #### [address] Platelet mean volume (Bld) [Entitic vol] 9.0 fL Normal 6.6-10.1 [facility] Comment on above: Performed By: #### C REAT, PP, LYTES, LIPID, CBC, BUN #### [address] Platelets (Bld) [#/Vol] 170 10*3/uL Normal 150-450 [facility] Comment on above: Performed By: #### C REAT, PP, LYTES, LIPID, CBC, BUN #### [address] RBC (Bld) [#/Vol] 4.36 10*6/uL Normal 3.90-5.60 [facility] Comment on above: Performed By: #### C REAT, PP, LYTES, LIPID, CBC, BUN #### [address] WBC (Bld) [#/Vol] 5.0 10*3/uL Normal 4.1-10.5 [facility] Comment on above: Performed By: #### C REAT, PP, LYTES, LIPID, CBC, BUN #### [address] Creatinineon 01-15-2023 Creatinine [Mass/Vol] 1.22 mg/dL Normal 0.70-1.30 [facility] Comment on above: Performed By: #### C REAT, PP, LYTES, LIPID, CBC, BUN #### [facility] [address] GFR/1.73 sq M.predicted MDRD (S/P/Bld) [Vol rate/Area] mL/min/{1.73_m2} [facility] Comment on above: Performed By: #### C REAT, PP, LYTES, LIPID, CBC, BUN #### [facility] [address] Creatinine [Mass/volume] in Serum or PlasmaOrdered By: Joselito Madsen on 01-15-2023 Creatinine [Mass/Vol] 1.22 mg/dL 0.70-1.30 [facility] ECG 12 lead ECGon 01-15-2023 ECG 12 lead ECG [facility] Main [place] [address] [place] [address] Electrocardiograph Report Signed Patient: Aisha Julien MR#: [id number] : 1955 Acct:[id number] Age/Sex: 67 / M ADM Date: 01/15/23 Loc: Room: Type: [facility] Attending Dr: Joselito Madsen DO Ordering Provider: Joselito Madsen DO Date of Service: 01/15/23 ECG/ECG 12 lead ECG: [facility] Copies to: Test Reason : Blood Pressure [...] Electronically Signed By:PATY MACKEY MD Transcribed By: [facility] Signed By Paty Mackey MD 1943 [facility] Electrolyteson 01-15-2023 Anion gap [Moles/Vol] 10.5 mmol/L Normal 6.0-15.0 [facility] Comment on above: Performed By: #### C REAT, PP, LYTES, LIPID, CBC, BUN #### [facility] [address] Chloride [Moles/Vol] 108 mmol/L High 98-107 [facility] Comment on above: Performed By: #### C REAT, PP, LYTES, LIPID, CBC, BUN #### [facility] [address] CO2 [Moles/Vol] 24.1 mmol/L Normal 21.0-31.0 [facility] Comment on above: Performed By: #### C REAT, PP, LYTES, LIPID, CBC, BUN #### [facility] [address] Potassium [Moles/Vol] 4.6 mmol/L Normal 3.5-5.1 [facility] Comment on above: Performed By: #### C REAT, PP, LYTES, LIPID, CBC, BUN #### [facility] [address] Sodium [Moles/Vol] 138 mmol/L Normal 136-145 [facility] Comment on above: Performed By: #### C REAT, PP, LYTES, LIPID, CBC, BUN #### [address] Eosinophils Auto (Bld) [#/Vo l]Ordered By: Joselito Madsen on 01-15-2023 Eosinophils (Bld) [#/Vol] 0.5 10*3/uL 0.0-0.45 [facility] Eosinophils/100 WBC Auto (Bl d)Ordered By: Joselito Madsen on 01-15-2023 Eosinophils/100 WBC (Bld) 9.6 % . [facility] Erythrocyte distribution wid th Auto (RBC) [Ratio]Ordered By: Joselito Madsen on 01-15-2023 Erythrocyte distribution width (RBC) [Ratio] 13.3 % 12.0-14.8 [facility] Hematocrit Auto (Bld) [Volum e fraction]Ordered By: Joselito Madsen on 01-15-2023 Hematocrit (Bld) [Volume fraction] 38.8 % 38.8-50.0 [facility] Hemoglobin [Mass/volume] in BloodOrdered By: Joselito Madsen on 01-15-2023 Hemoglobin (Bld) [Mass/Vol] 12.7 g/dL 13.0-17.0 [facility] Laboratory - Chemistry and C hemistry - challengeon 01-15-2023 Cholesterol [Mass/Vol] 123\S\123 below low threshold 140-200 -[facility] y 250 DO Work Phone: Comment on above: Chol less than 200 m g/dl low risk Chol 201-239 mg/dl borderline risk Chol 240 mg/dl and greater high risk Cholesterol in LDL [Mass/Vol] 49\S\49 Normal 0-100 -[facility] y 250 DO Work Phone: Comment on above: LDL ATP III CLASSIFI CATION LDL less than 100 mg/dL Optimal LDL 100-129 mg/dL Near or above optimal LDL 130-159 mg/dL Borderline high LDL 160-189 mg/dL High LDL greater than 189 mg/dL Very high Laboratory - CoagulationOrde red By: Joselito Madsen on 01-15-2023 PT Coag (PPP) [Time] 11.0 s 9.0-12.9 [facility] Leukocytes [#/volume] correc johnnie for nucleated erythrocytes in Blood by Automated counOrdered By: Joselito Madsen on 01-15-2023 WBC corrected for nucl RBC Auto (Bld) [#/Vol] 5.0 10*3/uL 4.1-10.5 [facility] Lipid Panelon 01-15-2023 Cholesterol [Mass/Vol] 123 mg/dL Low 140-200 [facility] Comment on above: Result Comment: Chol less than 200 mg/dl low risk Chol 201-239 mg/dl borderline risk Chol 240 mg/dl and greater high risk Performed By: #### C MP, CBC #### [facility] [address] Cholesterol in HDL [Mass/Vol] 64 mg/dL Normal 29-71 [facility] Comment on above: Result Comment: HDL CHOL ATP-III CLASSIFICATION Cardiovascular Risk HDL > or equal to 60 mg/dL LOW HDL < 40 mg/dL HIGH Performed By: #### C MP, CBC #### [address] Cholesterol.total/Cho lesterol in HDL [Mass ratio] 1.9 {ratio} Normal <5.0 [facility] Comment on above: Result Comment: PERF ORMED BY: [place] [id number] PATHOLOGIST SAT ACT INSTRUCTOR RAHEL TREVINO M.D. Performed By: #### C MP, CBC #### [address] LDL Cholesterol,Calculate d 49 mg/dL Normal 0-100 [facility] Comment on above: Result Comment: LDL ATP III CLASSIFICATION LDL less than 100 mg/dL Optimal LDL 100-129 mg/dL Near or above optimal LDL 130-159 mg/dL Borderline high LDL 160-189 mg/dL High LDL greater than 189 mg/dL Very high Performed By: #### C MP, CBC #### [address] Triglyceride w/Reflex 51 mg/dL Normal 0-149 [facility] Comment on above: Result Comment: TRIG ATP III CLASSIFICATION TRIG less than 150 mg/dL Normal TRIG 150-199 mg/dL Borderline high TRIG 200-500 mg/dL High TRIG greater than 500 mg/dL Very high Standard traceable to the Center for Disease Conrtrol and Prevention (CDC) test method. Performed By: #### C MP, CBC #### [facility] [address] [place] [address] VLDL CHOLESTEROL 10 mg/dL Normal [facility] Comment on above: Performed By: #### C MP, CBC #### [address] Lymphocytes Auto (Bld) [#/Vo l]Ordered By: Joselito Madsen on 01-15-2023 Lymphocytes (Bld) [#/Vol] 1.0 10*3/uL 1.00-4.8 [facility] Lymphocytes/100 WBC Auto (Bl d)Ordered By: Joselito Madsen on 01-15-2023 Lymphocytes/100 WBC (Bld) 19.2 % . [facility] MCH Auto (RBC) [Entitic mass ]Ordered By: Joselito Madsen on 01-15-2023 MCH (RBC) [Entitic mass] 29.2 pg 27.5-35.2 [facility] MCHC Auto (RBC) [Mass/Vol]Or dered By: Joselito Madsen on 01-15-2023 MCHC (RBC) [Mass/Vol] 32.7 g/dL 32.5-35.6 [facility] MCV Auto (RBC) [Entitic vol] Ordered By: Joselito Madsen on 01-15-2023 MCV (RBC) [Entitic vol] 89.1 fL 83.5-101 [facility] Monocytes Auto (Bld) [#/Vol] Ordered By: Joselito Madsen on 01-15-2023 Monocytes (Bld) [#/Vol] 0.9 10*3/uL 0.0-0.8 [facility] Monocytes/100 WBC Auto (Bld) Ordered By: Joselito Madsen on 01-15-2023 Monocytes/100 WBC (Bld) 17.1 % . [facility] Neutrophils Auto (Bld) [#/Vo l]Ordered By: Joselito Madsen on 01-15-2023 Neutrophils (Bld) [#/Vol] 2.7 10*3/uL 1.8-7.7 [facility] Neutrophils/100 WBC Auto (Bl d)Ordered By: Joselito aMdsen on 01-15-2023 Neutrophils/100 WBC (Bld) 53.4 % . [facility] No Panel InformationOrdered By: Joselito Madsen on 01-15-2023 Estimated GFR (CKD-EPI) > 60.0 mL/Min [facility] Pharmacy Creatinine Clearance (Chem N/A [facility] No Panel Informationon 01-15 0.0\S\0.0 Normal 0.0-0.2 -[facility] y [address] DO Work Phone: Comment on above: PERFORMED BY:[place] [address] [place], [place] [phone] MEDICAL DIRECTORRAHEL TREVINO M.D. 0.5\S\0.5 above high threshold 0.0-0.45 -[facility] [address] DO Work Phone: [phone] 0.9\S\0.9 above high threshold 0.0-0.8 [facility] [address] DO Work Phone: [phone] 1.0\S\1.0 Normal -[facility] [address] DO Work Phone: [phone] Comment on above: INR Therapeutic Rang [...] valves: 3 - 4.5 2.7\S\2.7 Normal 1.8-7.7 [facility] [address] DO Work Phone: [phone] 0.1\S\0.1 Normal 0-0.5 -[facility] [address] DO Work Phone: [phone] 0.7\S\0.7 Normal . [facility] [address] DO Work Phone: [phone] 9.6\S\9.6 Normal . [facility] [address] DO Work Phone: [phone] 17.1\S\17.1 Normal . [facility] [address] DO Work Phone: [phone] 19.2\S\19.2 Normal . [facility] [address] DO Work Phone: [phone] 53.4\S\53.4 Normal . [facility] [address] DO Work Phone: [phone] 9.0\S\9.0 Normal 6.6-10.1 [facility] [address] DO Work Phone: [phone] 170\S\170 Normal 150-450 [facility] 250 DO Work Phone: 13.3\S\13.3 Normal 12.0-14.8 [facility] [address] DO Work Phone: [phone] 32.7\S\32.7 Normal 32.5-35.6 [facility] [address] DO Work Phone: 29.2\S\29.2 Normal 27.5-35.2 [facility] [address] DO Work Phone: [phone] 89.1\S\89.1 Normal 83.5-101 [facility] [address] DO Work Phone: [phone] 38.8\S\38.8 Normal 38.8-50.0 [facility] [address] DO Work Phone: [phone] 12.7\S\12.7 below low threshold 13.0-17.0 [facility] [address] DO Work Phone: [phone] 4.36\S\4.36 Normal 3.90-5.60 [facility] [address] DO Work Phone: [phone] 5.0\S\5.0 Normal 4.1-10.5 [facility] [address] DO Work Phone: [phone] 29.1\S\29.1 Normal 25.1-36.5 [facility] [address] DO Work Phone: [phone] Comment on above: PERFORMED BY:[place] [address] [place], [place] [phone] MEDICAL DIRECTORRAHEL TREVINO M.D. 11.0\S\11.0 Normal 9.0-12.9 [facility] [address] DO Work Phone: [phone] 10.5\S\10.5 Normal 6.0-15.0 [facility] [address] DO Work Phone: 24.1\S\24.1 Normal 21.0-31.0 [facility] DO Work Phone: [phone] 108\S\108 above high threshold 98-107 [facility] [address] DO Work Phone: [phone] 4.6\S\4.6 Normal 3.5-5.1 [facility] DO Work Phone: [phone] 138\S\138 Normal 136-145 [facility] 250 DO Work Phone: [phone] 19\S\19 Normal 7-25 [facility] [address] DO Work Phone: [phone] > 60.0 Normal [facility] [address] DO Work Phone: [phone] 1.22\S\1.22 Normal 0.70-1.30 [facility] [address] DO Work Phone: [phone] 1.9\S\1.9 Normal <5.0 [facility] [address] DO Work Phone: [phone] Comment on above: PERFORMED BY:[place] [address] [place], [place] [phone] MEDICAL DIRECTORRAHEL TREVINO M.D. 10\S\10 Normal [facility] [address] DO Work Phone: [phone] 51\S\51 Normal 0-149 [facility] [address] DO Work Phone: [phone] Comment on above: TRIG ATP III CLASSIF ICATION TRIG less than 150 mg/dL Normal TRIG 150-199 mg/dL Borderline high TRIG 200-500 mg/dL High TRIG greater than 500 mg/dL Very high Standard traceable to the Center for Disease Conrtrol and Prevention (CDC) test method. 64\S\64 Normal 29-71 [facility] [address] DO Work Phone: Comment on above: HDL CHOL ATP-III CLA SSIFICATION Cardiovascular Risk HDL > or equal to 60 mg/dL LOW HDL < 40 mg/dL HIGH Nucleated erythrocytes [Pres ence] in Blood by Automated countOrdered By: Joselito Madsen on 01-15-2023 Nucleated RBC Auto Ql (Bld) 0.1 /100{WBC} 0-0.5 [facility] Platelet mean volume Auto (B ld) [Entitic vol]Ordered By: Joselito Madsen on 01-15-2023 Platelet mean volume (Bld) [Entitic vol] 9.0 fL 6.6-10.1 [facility] Platelet poor plasma interna tional normalized ratio (INR) by coagulation assay (relatOrdered By: Joselito Madsen on 01-15-2023 INR Coag (PPP) [Relative time] 1.0 {INR} [facility] Comment on above: INR Therapeutic [...] 01-15-2023 Platelets (Bld) [#/Vol] 170 10*3/uL 150-450 [facility] Potassium [Moles/volume] in Serum or PlasmaOrdered By: Joselito Madsen on 01-15-2023 Potassium [Moles/Vol] 4.6 mmol/L 3.5-5.1 [facility] RBC Auto (Bld) [#/Vol]Ordere d By: Joselito Madsen on 01-15-2023 RBC (Bld) [#/Vol] 4.36 10*6/uL 3.90-5.60 [facility] Serum or plasma anion gap de terminationOrdered By: Joselito Madsen on 01-15-2023 Anion gap [Moles/Vol] 10.5 mmol/L 6.0-15.0 [facility] Serum or plasma high density lipoprotein (HDL) cholesterol measurementOrdered By: Joselito Madsen on 01-15-2023 Cholesterol in HDL [Mass/Vol] 64 mg/dL 29- [facility] Comment on above: HDL CHOL ATP-III CLA SSIFICATION Cardiovascular RiskHDL > or equal to 60 mg/dL LOWHDL < 40 mg/dL HIGH Serum or plasma total choles terol/high density lipoprotein (HDL) cholesterol mass ratOrdered By: Joselito Madsen on 01-15-2023 Cholesterol.total/Cho lesterol in HDL [Mass ratio] 1.9 {ratio} <5.0 [facility] Sodium [Moles/volume] in Ser um or PlasmaOrdered By: Joselito Madsen on 01-15-2023 Sodium [Moles/Vol] 138 mmol/L 136-145 [facility] Triglyceride [Mass/volume] i n Serum or PlasmaOrdered By: Joselito Madsen on 01-15-2023 Triglyceride [Mass/Vol] 51 mg/dL 0-149 [facility] Comment on above: TRIG ATP III CLASSIF ICATIONTRIG less than 150 mg/dL NormalTRIG 150-199 mg/dL Borderline highTRIG 200-500 mg/dL High TRIG greater than 500 mg/dL Very highStandard traceable to the Center for Disease Conrtrol and Prevention (CDC) test method. Urea nitrogen [Mass/volume] in Serum or PlasmaOrdered By: Joselito Madsen on 01-15-2023 Urea nitrogen [Mass/Vol] 19 mg/dL 7-25 [facility] WBC Auto (Bld) [#/Vol]Ordere d By: Joselito Madsen on 01-15-2023 WBC (Bld) [#/Vol] 5.0 10*3/uL 4.1-10.5 [facility] Tobacco Screening.on 023 Adult depression screening assessment No [facility] [address] DO Work Phone: Fall risk assessment a) No falls within the last year [facility] DO Work Phone: Tobacco use status CP b) No [facility] [address] DO Work Phone: EVENT MONITORon 12-13-2021 EVENT MONITOR [address] [address] EVENT MONITOR PATIENT NAME: AISHA JULIEN : 1955 MED REC NO: [id number] ROOM: ACCOUNT NO: [id number] ADMIT DATE: 11/07/2021 PROVIDER: Inocencio Gutierrez NAME [...] for symptom control. INOCENCIO GUTIERREZ GV/V_TTHEN_I Doc#: [id number] CC: Rene Cannon [facility] CARDIAC STRESS TESTon 2021 CARDIAC STRESS TEST [address] [address] CARDIAC STRESS TEST PATIENT NAME: AISHA JULIEN : 1955 MED REC NO: [id number] ROOM: ACCOUNT NO: [id number] ADMIT DATE: 11/07/2021 PROVIDER: Inocencio Gutierrez DATE [...] remained at 96%. INOCENCIO GUTIERREZ GV/V_TTRMM_I Doc#: [id number] CC: Rene Cannon Normal [facility] CARDIAC STRESS TESTon 2021 CARDIAC STRESS TEST [address] [address] CARDIAC STRESS TEST PATIENT NAME: AISHA JULIEN : 1955 MED REC NO: [id number] ROOM: ACCOUNT NO: [id number] ADMIT DATE: 11/07/2021 PROVIDER: Karina Fajardo MD [...] LAURYNJenelleDICKSONCHRIS_DESTINEESTEPHANI Doc#: Unknown CC: Rene Gutierrez Normal [facility] NM MYOCARDIAL SPECT REST EXE RCISE OR RXon 11-07-2021 NM MYOCARDIAL SPECT REST EXERCISE OR RX Radiology exam is complete. No Radiologist dictation. Please follow up with ordering provider. Final result Normal [facility] No Panel Informationon 11-07 Radiology exam is complete. No Radiologist dictation. Please follow up with ordering provider. [facility] CONSOLIDATED STRESS TEST REPORTon 022 Karina Fajardo MD - 11/07/2021 1:54 [place] [address] CARDIAC STRESS TEST PATIENT NAME: AISHA JULIEN : 1955 MED REC NO: [id number] ROOM: ACCOUNT NO: [id number] ADMIT DATE: 11/07/2021 PROVIDER: Karina Fajardo MD [...] MD LAURYN/CIARAN_RALF Doc#: Unknown CC: Rene Gutierrez [facility] [employer] Work Phone: [facility] Work [facility]: VL DUP CAROTID BILATERALon 0 11-07-2021 VL DUP CAROTID BILATERAL Radiology exam is complete. No Radiologist dictation. Please follow up with ordering provider. Final result Normal [facility] Bryan Pichardo Jr., MD - 11/08/2021 [facility] Vascular Carotid Procedure Patient Name WILY LEONARD Date of Study 11/07/2021 L Date of 1955 Gender Male Age 66 year(s) Race Room Number Corporate ID [id number] # Patient Acct [id number] # MR # [id number] Operating Room Specialist RT Gómez Interpreting Estephania Pichardo Physician Referring [...] left side. - Additional Measurements:ICAPSV/CCAPSV 0.63.ICAEDV/CCAEDV 1.31. [facility] Phone: Radiology Study observation (narrative) [facility] Phone: VL DUP CAROTID BILATERALOrde red By: Bryan Pichardo on 11-07-2021 [facility] Phone: XR CHEST 2 Von 10-31-2021 XR [...] DEBORAH PERALTA Date: 2021-10-31 13:46 Normal [facility] Complete Blood Count with Au to Diffon 10-16-2021 Basophils (Bld) [#/Vol] 0.04 10*3/uL Normal 0.00-0.20 [facility] Comment on above: Performed By: #### C MP, TSH reflex FT4, CBCAD, MG, VITD, LIPD #### [facility] [address] [place], [place] [id number] Basophils/100 WBC (Bld) 0.7 % Normal [facility] Specialist Comment on above: Performed By: #### C MP, TSH reflex FT4, CBCAD, MG, VITD, LIPD #### [facility] [address] [place], [place] [id number] Eosinophils (Bld) [#/Vol] 0.12 10*3/uL Normal 0.02-0.50 [facility] Comment on above: Performed By: #### C MP, TSH reflex FT4, CBCAD, MG, VITD, LIPD #### [facility] [address] [place], [place] [id number] Eosinophils/100 WBC (Bld) 2.2 % Normal [facility] Comment on above: Performed By: #### C MP, TSH reflex FT4, CBCAD, MG, VITD, LIPD #### [facility] [address] [place], [place] [id number] Erythrocyte distribution width (RBC) [Ratio] 14.5 % Normal 11.0-15.0 [facility] Comment on above: Performed By: #### C MP, TSH reflex FT4, CBCAD, MG, VITD, LIPD #### [facility] [address] [place], [place] [id number] Hematocrit (Bld) [Volume fraction] 38.2 % Low 38.5-50.0 [facility] Specialist Comment on above: Performed By: #### C MP, TSH reflex FT4, CBCAD, MG, VITD, LIPD #### [facility] [address] [place], [place] [id number] Hemoglobin (Bld) [Mass/Vol] 12.3 g/dL Low 13.0-17.1 [facility] Comment on above: Performed By: #### C MP, TSH reflex FT4, CBCAD, MG, VITD, LIPD #### [facility] [address] [place], [place] [id number] Lymphocytes (Bld) [#/Vol] 1.2 10*3/uL Normal 0.9-3.9 [facility] Specialist Comment on above: Performed By: #### C MP, TSH reflex FT4, CBCAD, MG, VITD, LIPD #### [facility] [address] [place], [place] [id number] Lymphocytes/100 WBC (Bld) 22.1 % Normal [facility] Specialist Comment on above: Performed By: #### C MP, TSH reflex FT4, CBCAD, MG, VITD, LIPD #### [facility] [address] [place], [place] [id number] MCH (RBC) [Entitic mass] 29.4 pg Normal 27.0-33.0 [facility] Comment on above: Performed By: #### C MP, TSH reflex FT4, CBCAD, MG, VITD, LIPD #### [facility] [address] [place], [place] [id number] MCHC (RBC) [Mass/Vol] 32.2 g/dL Normal 32.0-36.0 [facility] Specialist Comment on above: Performed By: #### C MP, TSH reflex FT4, CBCAD, MG, VITD, LIPD #### [facility] [address] [place], [place] [id number] MCV (RBC) [Entitic vol] 91 fL Normal 80-100 [place] [facility] Comment on above: Performed By: #### C MP, TSH reflex FT4, CBCAD, MG, VITD, LIPD #### [facility] [address] [place], [place] [id number] Monocytes (Bld) [#/Vol] 0.9 10*3/uL Normal 0.2-0.9 [facility] Specialist Comment on above: Performed By: #### C MP, TSH reflex FT4, CBCAD, MG, VITD, LIPD #### [facility] [address] [place], [place] [id number] Monocytes/100 WBC (Bld) 16.4 % Normal [facility] Specialist Comment on above: Performed By: #### C MP, TSH reflex FT4, CBCAD, MG, VITD, LIPD #### [facility] [address] [place], [place] [id number] Neutrophils (Bld) [#/Vol] 3.1 10*3/uL Normal 1.5-7.8 [facility] Specialist Comment on above: Performed By: #### C MP, TSH reflex FT4, CBCAD, MG, VITD, LIPD #### [facility] [address] [place], [place] [id number] Neutrophils/100 WBC (Bld) 57.5 % Normal [facility] Specialist Comment on above: Performed By: #### C MP, TSH reflex FT4, CBCAD, MG, VITD, LIPD #### [facility] [address] [place], [place] [id number] Platelet mean volume (Bld) [Entitic vol] 10.30 fL Normal 7.50-12.50 [facility] Specialist Comment on above: Performed By: #### C MP, TSH reflex FT4, CBCAD, MG, VITD, LIPD #### [facility] [address] [place], [place] [id number] Platelets (Bld) [#/Vol] 266 10*3/uL Normal 140-400 [facility] Specialist Comment on above: Performed By: #### C MP, TSH reflex FT4, CBCAD, MG, VITD, LIPD #### [facility] [address] [place], [place] [id number] RBC (Bld) [#/Vol] 4.19 10*6/uL Low 4.20-5.80 [facility] Specialist Comment on above: Performed By: #### C MP, TSH reflex FT4, CBCAD, MG, VITD, LIPD #### [facility] [address] [place], [place] [id number] RDW-SD 48.1 fL Normal 37.0-50.0 [facility] Comment on above: Performed By: #### C MP, TSH reflex FT4, CBCAD, MG, VITD, LIPD #### [facility] [address] [place], [place] [id number] WBC (Bld) [#/Vol] 5.4 10*3/uL Normal 3.8-11.0 [facility] Comment on above: Performed By: #### C MP, TSH reflex FT4, CBCAD, MG, VITD, LIPD #### [facility] [address] [place], [place] [id number] Comprehensive Metabolic Pane jefry 10-16-2021 Albumin [Mass/Vol] 4.2 g/dL Normal 3.6-5.1 [facility] Comment on above: Performed By: #### C MP, TSH reflex FT4, CBCAD, MG, VITD, LIPD #### [facility] [address] [place], [place] [id number] Albumin/Globulin [Mass ratio] 1.6 {ratio} Normal 1.0-2.5 [facility] Comment on above: Performed By: #### C MP, TSH reflex FT4, CBCAD, MG, VITD, LIPD #### [facility] [address] [place], [place] [id number] ALP [Catalytic activity/Vol] 103 U/L Normal 40-129 [facility] Comment on above: Performed By: #### C MP, TSH reflex FT4, CBCAD, MG, VITD, LIPD #### [facility] [address] [place], [place] [id number] ALT [Catalytic activity/Vol] 11 U/L Normal 9-46 [facility] Comment on above: Result Comment: 07/25 Female reference range changed. Performed By: #### C MP, TSH reflex FT4, CBCAD, MG, VITD, LIPD #### [facility] [address], [place] [id number] Anion gap [Moles/Vol] 19 mmol/L Normal 12-20 [facility] Comment on above: Result Comment: Effbillie ctive 08/30/2019 reference range changed. Performed By: #### C MP, TSH reflex FT4, CBCAD, MG, VITD, LIPD #### [facility] [address], [place] [id number] AST [Catalytic activity/Vol] 17 U/L Normal 10-40 [facility] Comment on above: Performed By: #### C MP, TSH reflex FT4, CBCAD, MG, VITD, LIPD #### [facility] [address], [place] [id number] Bilirubin [Mass/Vol] 0.37 mg/dL Normal 0.30-1.20 [facility] Comment on above: Performed By: #### C MP, TSH reflex FT4, CBCAD, MG, VITD, LIPD #### [facility] [address], [place] [id number] BUN/CREA 15 Ratio Normal 6-22 [facility] Comment on above: Performed By: #### C MP, TSH reflex FT4, CBCAD, MG, VITD, LIPD #### [facility] [address], [place] [id number] Calcium [Mass/Vol] 9.5 mg/dL Normal 8.6-10.2 [facility] [place] Comment on above: Performed By: #### C MP, TSH reflex FT4, CBCAD, MG, VITD, LIPD #### [facility] [address], [place] [id number] Chloride [Moles/Vol] 104 mmol/L Normal 98-107 [facility] Comment on above: Performed By: #### C MP, TSH reflex FT4, CBCAD, MG, VITD, LIPD #### [facility] [address] [place] [id number] CO2 [Moles/Vol] 21 mmol/L Normal 20-31 [facility] Comment on above: Performed By: #### C MP, TSH reflex FT4, CBCAD, MG, VITD, LIPD #### [facility] [address], [place] [id number] Creatinine [Mass/Vol] 0.9 mg/dL Normal 0.7-1.4 [facility] Comment on above: Performed By: #### C MP, TSH reflex FT4, CBCAD, MG, VITD, LIPD #### [facility] [address], [place] [id number] eGFRAA 100 mL/min/1.73m2 Normal >60 [facility] Comment on above: Performed By: #### C MP, TSH reflex FT4, CBCAD, MG, VITD, LIPD #### [facility] [address], [place] [id number] eGFRNAA 82 mL/min/1.73m2 Normal >60 [facility] Comment on above: Performed By: #### C MP, TSH reflex FT4, CBCAD, MG, VITD, LIPD #### [facility] [address], [place] [id number] Globulin (S) [Mass/Vol] 2.6 g/dL Normal 1.9-3.7 [facility] Comment on above: Performed By: #### C MP, TSH reflex FT4, CBCAD, MG, VITD, LIPD #### [facility] [address], [place] [id number] Glucose [Mass/Vol] 92 mg/dL Normal 65-99 [facility] [place] Comment on above: Result Comment: For FASTING Glucose --- ADA reference ranges: Normal 65-99 mg/dl Prediabetes 100-125 Diabetes >/= 126 Performed By: #### C MP, TSH reflex FT4, CBCAD, MG, VITD, LIPD #### [facility] [address], [place] [id number] Potassium [Moles/Vol] 4.8 mmol/L Normal 3.5-5.5 [facility] Comment on above: Performed By: #### C MP, TSH reflex FT4, CBCAD, MG, VITD, LIPD #### [facility] [address], [place] [id number] Protein [Mass/Vol] 6.8 g/dL Normal 6.1-8.1 [facility] [place] [facility] [employer] Comment on above: Performed By: #### C MP, TSH reflex FT4, CBCAD, MG, VITD, LIPD #### [facility] [address], [place] [id number] Sodium [Moles/Vol] 139 mmol/L Normal 135-146 [facility] [place] [facility] [employer] Comment on above: Performed By: #### C MP, TSH reflex FT4, CBCAD, MG, VITD, LIPD #### [facility] [address], [place] [id number] Urea nitrogen [Mass/Vol] 14 mg/dL Normal 7-25 [facility] Comment on above: Performed By: #### C MP, TSH reflex FT4, CBCAD, MG, VITD, LIPD #### [facility] [address], [place] [id number] Lipid Panelon 10-16-2021 Cholesterol [Mass/Vol] 158 mg/dL Normal 125-200 [facility] Comment on above: Result Comment: Low risk < 200mg/dL Borderline risk 201-239 mg/dl High risk > or equal to 240 Performed By: #### C MP, TSH reflex FT4, CBCAD, MG, VITD, LIPD #### [facility] [address], [place] [id number] Cholesterol in HDL [Mass/Vol] 65 mg/dL Normal >40 [facility] [employer] Comment on above: Result Comment: High Cardiovascular Risk HDL <40 mg/dL Low Cardiovascular Risk HDL > or equal to 60 mg/dl Performed By: #### C MP, TSH reflex FT4, CBCAD, MG, VITD, LIPD #### [facility] [address], [place] [id number] Cholesterol in LDL [Mass/Vol] 81 mg/dL Normal [facility] [employer] Comment on above: Result Comment: LDL ATP III CLASSIFICATION LDL less than 100 mg/dl Optimal LDL 100-129 mg/dl Near or above optimal LDL 130-159 Borderline high LDL 160-189 High LDL greater than 189 mg/dl Very High Performed By: #### C MP, TSH reflex FT4, CBCAD, MG, VITD, LIPD #### [facility] [address], [place] [id number] Cholesterol in VLDL [Mass/Vol] 12 mg/dL Normal [facility] [employer] Comment on above: Performed By: #### C MP, TSH reflex FT4, CBCAD, MG, VITD, LIPD #### [facility] [address], [place] [id number] Cholesterol.total/Cho lesterol in HDL [Mass ratio] 2 {ratio} Normal [facility] [employer] Comment on above: Performed By: #### C MP, TSH reflex FT4, CBCAD, MG, VITD, LIPD #### [facility] [address], [place] [id number] Triglyceride [Mass/Vol] 60 mg/dL Normal 30-150 [facility] [employer] Comment on above: Result Comment: TRIG ATPIII CLASSIFICATIONS TRIG less than 150 mg/dl Normal TRIG 150-199 mg/dl Borderline High TRIG 200-500 mg/dl High TRIG greather than 500 mg/dl Very High Performed By: #### C MP, TSH reflex FT4, CBCAD, MG, VITD, LIPD #### [facility] [address], [place] [id number] Magnesiumon 10-16-2021 Magnesium [Mass/Vol] 1.9 mg/dL Normal 1.5-2.3 [facility] Specialist Comment on above: Performed By: #### C MP, TSH reflex FT4, CBCAD, MG, VITD, LIPD #### [facility] [address], [place] [id number] TSH w/ Reflex to Free T4on 0 10-16-2021 TSH 1.370 uIU/mL Normal 0.400-4.50 0 [facility] [employer] Comment on above: Performed By: #### C MP, TSH reflex FT4, CBCAD, MG, VITD, LIPD #### [facility] [address], [place] [id number] Vitamin D 25-OHon 10-16-2021 VIT D 25 OH 28 ng/ml Low >29 [facility] [employer] Comment on above: Result Comment: Karissa min D Status Deficiency <20 ng/mL Insufficiency 20-29 ng/mL Optimal 30-100 ng/mL Possible Toxicity >=150 ng/mL Performed By: #### C MP, TSH reflex FT4, CBCAD, MG, VITD, LIPD #### [facility] [address] [place], [place] [id number] XR CHEST 2 Von 09-11-2021 XR CHEST [...] DEBORAH PERALTA Date: 2021-09-11 11:13 Normal [facility] PROF CHEM 8 (BAS METB)on Anion gap [Moles/Vol] 19.0 mmol/L Normal [facility] Comment on above: Performed By: #### B MP #### [facility] [address] [address] [address] Vadim Koehler Calcium [Mass/Vol] 9.0 mg/dL Normal 8.4-10.2 [facility] Comment on above: Performed By: #### B MP #### [facility] [address] [address] [address] Vadim Koehler Chloride [Moles/Vol] 97 mmol/L Critically low 98-107 [place] Comment on above: Performed By: #### B MP #### [facility] [address] [address] [address] Vadim Koehler CO2 [Moles/Vol] 20.0 mmol/L Critically low 22.0-30.0 [place] Comment on above: Performed By: #### B MP #### [facility] [address] [address] [address] Vadim Koehler Creatinine [Mass/Vol] 3.03 mg/dL Critically high 0.66-1.25 [place] Comment on above: Performed By: #### B MP #### [facility] [address] [address] [address] Vadim Koehler EGFR-AF CENTRAL AFRICAN 25 mL/min/1.73m2 Critically low >=60 [place] Comment on above: Performed By: #### B MP #### [facility] [address] [address] [address] Vadim Koehler EGFR-NON AF CENTRAL AFRICAN 21 mL/min/1.73m2 Critically low >=60 [place] Comment on above: Performed By: #### B MP #### [facility] [address] [address] [address] Vadim Koehler Glucose [Mass/Vol] 120 mg/dL Critically high 74-106 [facility] Comment on above: Performed By: #### B MP #### [facility] [address] [address] [address] Vadim Koehler Potassium [Moles/Vol] 4.0 mmol/L Normal 3.4-5.0 [place] Comment on above: Performed By: #### B MP #### [facility] [address] [address] [address] Vadim Koehler Sodium [Moles/Vol] 132 mmol/L Critically low 137-145 Th [facility] Comment on above: Performed By: #### B MP #### [facility] [address] [address] [address] Vadim Koehler Urea nitrogen [Mass/Vol] 47.0 mg/dL Critically high 9.0-20.0 [place] Comment on above: Performed By: #### B MP #### [facility] [address] [address] [address] Vadim Koehler Urea nitrogen/Creatinine [Mass ratio] 15.5 mg/mg Normal [place] Comment on above: Performed By: #### B MP #### [facility] [id number] Vadim Koehler Vital Signs Date Time Vital Sign Value Performing Clinician Facility 08-07-2023 13:50-0500 Body weight 63.5 kg Cleveland Alberts MD Work Phone: [facility] 08-07-2023 13:50-0500 Diastolic blood pressure 63 mm[Hg] Cleveland Alberts MD Work Phone: [facility] 08-07-2023 13:50-0500 Heart rate 139 /min Cleveland Alberts MD Work Phone: [facility] 08-07-2023 13:50-0500 Systolic blood pressure 94 mm[Hg] Cleveland Alberts MD Work Phone: [facility] 07-26-2023 15:20-0500 Body temperature 97.7 [degF] MD Rene Cannon Work Phone: [facility] 07-26-2023 15:20-0500 Diastolic blood pressure 69 mm[Hg] MD Rene Cannon Work Phone: [facility] 07-26-2023 15:20-0500 Heart rate 58 /min MD Rene Cannon Work Phone: [facility] 07-26-2023 15:20-0500 Respiratory rate 18 /min MD Rene Cannon Work Phone: [facility] 07-26-2023 15:20-0500 SaO2% (BldA) [Mass fraction] 97 % MD Rene Cannon Work Phone: [facility] 07-26-2023 15:20-0500 Systolic blood pressure 128 mm[Hg] MD Rene Cannon Work Phone: [facility] 07-26-2023 03:59-0500 Body weight 74.9 kg MD Rene Cannon Work Phone: [facility] 07-25-2023 14:39-0500 Body height 175.26 cm MD Rene Cannon Work Phone: [facility] 07-24-2023 18:07-0500 Diastolic blood pressure 56 mm[Hg] MD Rene Cannon Work Phone: [facility] 07-24-2023 18:07-0500 Heart rate 58 /min MD Rene Cannon Work Phone: [facility] 07-24-2023 18:07-0500 Respiratory rate 18 /min MD Rene Cannon Work Phone: [facility] 07-24-2023 18:07-0500 SaO2% (BldA) [Mass fraction] 100 % MD Rene Cannon Work Phone: [facility] 07-24-2023 18:07-0500 Systolic blood pressure 100 mm[Hg] MD Rene Cannon Work Phone: [facility] 07-24-2023 12:15-0500 Body height 175.26 cm MD Rene Cannon Work Phone: [facility] 07-24-2023 12:15-0500 Body temperature 97.6 [degF] MD Rene Cannon Work Phone: [facility] 07-24-2023 12:15-0500 Body weight 72.5 kg MD Rene Cannon Work Phone: [facility] 02-22-2023 11:30-0400 Body height 176.53 cm Chantal Castellanos Other [facility] Other 02-22-2023 11:30-0400 Body mass index (BMI) [Ratio] 25.79 kg/m2 Chantal Castellanos Other [facility] Other 02-22-2023 11:30-0400 Body temperature 98.9 [degF] Chantal Castellanos Other [facility] Other 02-22-2023 11:30-0400 Body weight 80.38 kg Chantal Castellanos Other [facility] Other 02-22-2023 11:30-0400 Respiratory rate 18 /min Chantal Castellanos Other [facility] Other 02-22-2023 11:30-0400 SaO2% (BldA) [Mass fraction] 96 % Chantal Castellanos Other [facility] Other 02-06-2023 11:36-0400 Body height 176.53 cm Rene Cannon Work Phone: [facility] DO Work Phone: 02-06-2023 11:36-0400 Body mass index (BMI) [Ratio] 25.62 kg/m2 Rene Cannon Work Phone: [facility] DO Work Phone: 02-06-2023 11:36-0400 Body surface area Derived from formula 1.97 m2 Rene Cannon Work Phone: [facility] DO Work Phone: 02-06-2023 11:36-0400 Body weight 79.83 kg Rene Cannon Work Phone: [facility] DO Work Phone: 02-06-2023 11:36-0400 Diastolic blood pressure 78 mm[Hg] Rene Cannon Work Phone: [facility] DO Work Phone: 02-06-2023 11:36-0400 Heart rate 66 /min Rene Cannon Work Phone: [facility] DO Work Phone: 02-06-2023 11:36-0400 Systolic blood pressure 136 mm[Hg] eRne Cannon Work Phone: [facility] DO Work Phone: 01-17-2023 13:05-0400 Diastolic blood pressure 72 mm[Hg] MD Rene Cannon Work Phone: [facility] 01-17-2023 13:05-0400 Heart rate 60 /min MD Rene Cannon Work Phone: [facility] 01-17-2023 13:05-0400 Respiratory rate 16 /min MD Rene Cannon Work Phone: [facility] 01-17-2023 13:05-0400 SaO2% (BldA) [Mass fraction] 97 % MD Rene Cannon Work Phone: [facility] 01-17-2023 13:05-0400 Systolic blood pressure 123 mm[Hg] MD Rene Cannon Work Phone: [facility] 01-17-2023 07:26-0400 Body height 177.8 cm MD Rene Cannon Work Phone: [facility] 01-17-2023 07:26-0400 Body temperature 98.1 [degF] MD Rene Cannon Work Phone: [facility] 01-17-2023 07:26-0400 Body weight 82 kg MD Rene Cannon Work Phone: [facility] 01-09-2023 09:10-0400 Diastolic blood pressure 92 mm[Hg] Rene Cannon Work Phone: [facility] DO Work Phone: 01-09-2023 09:10-0400 Systolic blood pressure 160 mm[Hg] Rene Cannon Work Phone: [facility] DO Work Phone: 01-09-2023 09:09-0400 Body height 176.53 cm Rene Cannon Work Phone: [facility] DO Work Phone: 01-09-2023 09:09-0400 Body mass index (BMI) [Ratio] 26.49 kg/m2 Rene Cannon Work Phone: [facility] DO Work Phone: 01-09-2023 09:09-0400 Body surface area Derived from formula 1.99 m2 Destineemickey Cannon Work Phone: [facility] DO Work Phone: 01-09-2023 09:09-0400 Body weight 82.56 kg Rene Cannon Work Phone: [facility] DO Work Phone: 01-09-2023 09:09-0400 Diastolic blood pressure 90 mm[Hg] Rene Cannon Work Phone: [facility] DO Work Phone: 01-09-2023 09:09-0400 Heart rate 70 /min Rene Cannon Work Phone: [facility] DO Work Phone: 01-09-2023 09:09-0400 Systolic blood pressure 152 mm[Hg] Destineemickey Cannon Work Phone: [facility] DO Work Phone: 11-21-2021 14:30-0400 Body height 176.53 cm Deborah Magallanes Other [facility] Other 11-21-2021 14:30-0400 Body mass index (BMI) [Ratio] 27.36 kg/m2 Deborah Magallanes Other [facility] Other 11-21-2021 14:30-0400 Body weight 85.28 kg Deborah Magallanes Other [facility] Other 11-21-2021 14:30-0400 Diastolic blood pressure 79 mm[Hg] Deborah Magallanes Other [facility] Other 11-21-2021 14:30-0400 Systolic blood pressure 136 mm[Hg] Deborah Magallanes Other [facility] Other Encounters Encounter Date Encounter Type Care Provider Facility Start: 08-28-2023 End: 09-05-2023 Evaluation and management of [facility] [place] [facility] Start: 08-28-2023 End: 08-28-2023 ambulatory [place] Shipley [facility] Facility:[facility] Start: 08-15-2023 End: 08-15-2023 ambulatory Imad Asaad Other [facility] Other Start: 08-15-2023 Telephone encounter Imad Asaad [facility] Incubator Operator Start: 08-13-2023 Telephone encounter Cleveland chang MD Work Phone: General Surgery Comment on above: FMLA Paperwork Start: 08-08-2023 Preprocedural examination done Cleveland Alberts MD Work Phone: [facility] Work Phone: Start: 08-07-2023 End: 08-17-2023 Evaluation and management of inpatient BOL[place] Misa DEAL Facility:[facility] Start: 08-07-2023 End: 08-07-2023 [facility] [facility] Start: 08-07-2023 End: 08-07-2023 Patient [...] Evaluation and management of inpatient Rene Cannon Facility:[facility] Start: 07-24-2023 End: 07-26-2023 Evaluation and management of inpatient MD Rene Cannon Work Phone: [facility] [place] [facility] Work Phone: Start: 07-24-2023 End: 07-24-2023 ambulatory RENE CANNON Not Available Start: 07-10-2023 End: 07-10-2023 ambulatory RENE CANNON Not Available Start: 02-22-2023 End: 02-22-2023 ambulatory Chantalniko Castellanos Other [facility] [employer] Other Start: 02-22-2023 Office outpatient vi sit 15 minutes Chantal Castellanos [facility] Start: 02-06-2023 Office outpatient vi sit 15 minutes Rene Cannon Work Phone: [facility] DO Work Phone: Start: 01-17-2023 ambulatory Arnel Madsen Facilit [id number] Start: 01-17-2023 End: 01-17-2023 ambulatory Joselito Madsen Facility:[facility] Start: 01-17-2023 End: 01-17-2023 Admission to same day surgery center MD Rene Cannon Work Phone: [facility] Analyst Work Phone: Start: 01-17-2023 End: 01-17-2023 ambulatory MD Rene Cannon Work Phone: [facility] Work Phone: Start: 01-15-2023 End: 01-15-2023 ambulatory Joselito Madsen Facility:[facility] Start: 01-15-2023 End: 01-15-2023 Patient encounter procedure MD Rene Cannon Work Phone: [facility]Pre[facility]Surgical Testing Work Phone: Start: 01-09-2023 ambulatory Arnel Cale Facilit y:[id number] Start: 12-19-2022 ambulatory Arnel Cale Facilit y:[facility] Start: 07-04-2022 ambulatory INOCENCIO ERICKSON [facility] Start: 01-11-2022 End: 01-11-2022 ambulatory Deborah Magallanes Other [facility] Other Start: 01-11-2022 Telephone encounter Deborah Magallanes [facility] Start: 12-19-2021 End: 12-19-2021 ambulatory Deborah Magallanes Other [facility] Other Start: 12-19-2021 Telephone encounter Deborah Magallanes [facility] Start: 11-21-2021 End: 11-21-2021 ambulatory Deborah Magallanes Other [facility] Other Start: 11-21-2021 Office outpatient ne w 30 minutes Deborah Magallanes [facility] Start: 11-07-2021 End: 11-10-2021 ambulatory DOUGLAS GUTIERREZ [facility] Start: 11-07-2021 End: 11-09-2021 Subsequent hospital visit by physician [facility] Ekg [facility] EKG Comment on above: Chest pain, [...] IMENOrdering Facility: [facility] Address: [address] [place] [address] Performed By: #### T SCR ####[facility] [id number] [address] Start: 07-25-2023 Esophagogastroduodenoscopy MD Rene Darnell [...] Duplex scan extracranial art compl bi study Dougals Gutierrez MD Work Phone: Start: 08-25-2021 Total colonoscopy Rene Cannon Work Phone: Start: 03-17-2017 Colonoscopy Mw Ekg Arthroscopy of knee Rene Cannon Work Phone: Cardiac catheterization Olga Cannon Work Phone: Tonsillectomy Rene Panchal er Work Phone: Plan of Treatment Date Care Activity Detail Author Start: 02-16-2033 Urine microalbumin profile DTa P,Tdap,Td Vaccine (2 - Td or Tdap) [facility] Start: 03-17-2027 Screening for malign ant neoplasm of colon [facility] Start: 10-16-2026 Lipid panel Lipid screen [facility] Start: 08-14-2026 Diabetes Screening Diabetes Screenin g [facility] Start: 08-07-2026 Diabetes Screening Diabetes Screenin g [facility] Start: 08-07-2024 BP Controlled (<130/80) BP Con trolled (<130/80) [facility] Start: 07-26-2023 [facility] Start: 07-25-2023 Comprehensive metabo lic 2000 panel - Serum or Plasma [facility] Start: 07-25-2023 [facility] Start: 07-24-2023 Blood chemistry [facility] Start: 07-24-2023 Referral to Delivery Rep [facility] Start: 07-24-2023 End: 07-24-2023 [facility] Start: 07-24-2023 Referral to speech a nd language therapy service [facility] Start: 07-24-2023 Referral to reject opener and filler [facility] Start: 07-24-2023 Hospital admission [facility] Start: 07-24-2023 Referral to lab tester [facility] Start: 04-25-2023 Influenza vaccination Influenz a Vaccine (#1) [facility] Start: 01-17-2023 End: 01-17-2023 [facility] Start: 10-16-2022 Creatinine measurement Creatinine mo nitoring [facility] Start: 10-16-2022 Potassium monitoring Potassium monit [facility] Start: 08-25-2022 Advance Directive Discussion A dvance Directive Discussion [facility] Start: 08-25-2022 Depression Assessment Depression Ass essment [facility] Start: 12-04-2021 End: 12-04-2021 Patient encounter procedure 12/04/2021 Office Visit Cardiology Douglas Gutierrez MD [address] [place] [address] [facility] [employer] Start: 04-25-2021 Influenza vaccination Flu vaccine (# 1) [facility] Start: 2020 Pneumococcal 65+ yea rs Vaccine (1 of 1 - PPSV23) Pneumococcal 65+ years Vaccine (1 of 1 - PPSV23) [facility] Start: 2020 Pneumococcal Vaccine : 65+ (1 - PCV) Pneumococcal Vaccine: 65+ (1 - PCV) [facility] Start: 2020 Pneumococcal Vaccine : 65+ (1 of 1 - PCV) Pneumococcal Vaccine: 65+ (1 of 1 - PCV) [facility] Start: 2015 RSV Vaccine (1 - 1-d ose 60+ series) RSV Vaccine (1 - 1-dose 60+ series) [facility] Start: 2010 Prostate specific an tigen measurement Prostate Cancer Screening Discussion [facility] Start: 2005 Shingles Vaccine (1 of 2) Arriaga gles Vaccine (1 of 2) [facility] Start: 2005 Shingrix Vaccine (1 of 2) Arriaga grix Vaccine (1 of 2) [facility] Start: 2000 Diabetes Screening Diabetes Screenin g [facility] Start: 2000 Screening for malign ant neoplasm of colon [facility] Start: 1990 Lipid panel Lipid Screening [facility] Start: 1974 DTaP/Tdap/Td vaccine (1 - Tdap) DTaP/Tdap/Td vaccine (1 - Tdap) [facility] Start: 1974 Urine microalbumin profile DTa P,Tdap,Td Vaccine (1 - Tdap) [facility] Start: 1973 Annual PCP Team Meat Cutter kit Disease Visit Annual PCP Team Chronic Disease Visit [facility] Start: 1973 Hepatitis C screening Hepatitis C [facility] Start: 1967 Depression Screen Depression Screen [facility] Start: 1960 COVID-19 Vaccine (1) COVID-19 Vaccin e (1) [facility] Start: 01-15-1956 Covid-19 Vaccine (#1) Covid-19 Vacci ne (#1) [facility] Start: 1955 Hepatitis C screening Hepatitis C [facility] Anion gap measurement [facility] Blood chemistry [facility] End: 11-07-2021 Cardiac event monitor Cardiac event monitor Cardiac Services Routine Chest pain, unspecified type Syncope, unspecified syncope type 1 Occurrences starting 11/07/2021 until 11/07/2021 [facility] Work Phone: Comment on above: 1 Occurrences starti ng 11/07/2021 until 11/07/2021 Dup-scan xtr veins c omplete bilateral study VASCULAR REPORT Imaging Ordered: 11/08/2021 [facility] Comment on above: Ordered: 11/08/2021 Patient referral Luli mendosa [facility] Work Phone: End: 11-07-2021 Stress test, myoview Stress test, myoview Cardiac Services Routine Chest pain, unspecified type Syncope, unspecified syncope type 1 Occurrences starting 11/07/2021 until 11/07/2021 [employer] Work Phone: Comment on above: 1 Occurrences starti ng 11/07/2021 until 11/07/2021 [facility] Payers Date Payer Category Payer Self-pay [id number] 2020 Medicare [id number] 2017 Unknown 1959 Unknown [id number] 1955 Unknown [id number] 2.16.84 0.1.857455.3.579.2.593 1955 Unknown [id number] 2.16.84 0.1.893478.3.579.2.593 1955 Unknown [id number] 2.16.84 0.1.997419.3.579.2.593 1955 Unknown [id number] 2.16.84 0.1.427388.3.579.2.593 1955 Unknown [id number] 2.16.8 40.1.094047.3.579.2.174 1955 Unknown [id number] 2.16.8 40.1.885103.3.579.2.174 1955 Unknown [id number] 2.16.8 40.1.268662.3.579.2.174 1955 Unknown [id number] 2.16.8 40.1.945509.3.579.2.174 1955 Unknown [id number] 2.16.8 40.1.049891.3.579.2.174 1955 Unknown [id number] 2.16.8 40.1.913471.3.579.2.174 1955 Unknown [id number] 2.16. 840.1.734204.3.579.2.356 1955 Unknown [id number] 2.16. 840.1.132540.3.579.2.356 1955 Unknown [id number] 2.16. 840.1.369265.3.579.2.356 1955 Unknown [id number] 2.16.840 .1.505240.3.579.2.1259 1955 Unknown [id number] 2.16.840 .1.274803.3.579.2.1259 1955 Unknown [id number] 2.16.840 .1.841611.3.579.2.1259 Unknown [id number] 2.16.8 40.1.833887.3.579.2.531 Unknown [id number] 2.16.8 40.1.807374.3.579.2.531 Unknown [id number] 2.16.8 40.1.208286.3.579.2.531 Social History Date Type Detail Facility Start: 10-23-2021 End: 08-07-2023 Tobacco smoking status [facility] Never smoked tobacco [facility] Start: 10-23-2021 End: 08-07-2023 Tobacco use and exposure Smokeless tobacco non-user [employer] Phone: Start: 10-24-2021 Alcohol intake Current drinke r of alcohol (finding) [employer] Phone: Start: 10-24-2021 End: 08-07-2023 Alcohol intake [employer] Phone: Comment on above: couple beers at [facility]; Start: 1955 Sex Assigned At Not on file [employer] [facility] Phone: Start: 08-07-2023 Sex Assigned At [employer] Other Start: 1955 Sex Assigned At Male [facility] Tobacco smoking status NHIS Tobacco smoking consumption unknown [facility] Start: 08-07-2023 Alcohol intake Ex-drinker (finding) [facility] National Score (1-100), lower number is lower risk 63 [facility] Medical Equipment Procedure Code Equipment Code Equipment Origin al Text Equipment Identifier Dates [id number] Percutane Endoscopic Gastrostomy Set [id number] Start: 08-13-2023 Goals Date Patient Goal Desired Activity /State Functional Status Date Assessment Result Facility 07-26-2023 Functional status Patient at Baseline [facility] Work Phone: 07-24-2023 Functional status Patient at Baseline [facility] Work Phone: Mental Status Date Assessment Result Facility 07-26-2023 Cognitive function Cognitive Sta tus Patient at Baseline [facility] Work Phone: 07-24-2023 Cognitive function Cognitive Sta tus Patient at Baseline [facility] Work Phone: Clinical Notes 11-07-2021 to 09-05-2023 Telephone Encounter - Jessie Zamora RN - 08/14/2023 9:12 AM ESTTelephone Encounter - Jessie Zamora RN - 08/13/2023 10:24 AM Cleveland Chinchilla MD - 08/07/2023 2:25 PM EST Note Date & Type Note Facility 09-05-2023 Note [facility] 09-04-2023 Note [facility] 09-03-2023 Note [facility] 09-02-2023 Note HNO ID: [id number] Author: MARYAM MEJIA, LUCILLE Service: Care Management Author Type: Registered Nurse Type: Care Mgt Progress Note Filed: 09/02/2023 13:34 Note Text: cont. with TPN, optimize pt for OR planned Friday [facility] 09-02-2023 Note [facility] 09-01-2023 Note [facility] 08-31-2023 Note [facility] 08-30-2023 Note [facility] 08-29-2023 Note HNO ID: [id number] Author: LAYNE CARR RN Service: ? Author Type: Registered Nurse Type: Nursing Progress Note Filed: 08/29/2023 16:30 Note Text: 1630 paged SROC, is it ok to use picc if so we need an order. [facility] 08-29-2023 Note [facility] 08-29-2023 Note [facility] 08-28-2023 Note HNO ID: [id number] Author: CLEVELAND ALBERTS MD Service: ? Author [...] deangelo (more content not included)... [facility] 08-26-2023 Note HNO ID: [id number] Author: Andreas Ford, DO Service: ? Author Type: Fellow Type: Progress Notes Filed: 08/26/2023 12:36 PM Note Text: [facility] Multidisciplinary Vuthob-Zqmygdjfi-Ngmnwgc AND Upper GI Case Conference -- Consensus [...] able Andreas Ford DO HPB Surgical Fellow [facility] 08-17-2023 Note [facility] 08-17-2023 Note HNO ID: [id number] Author: Margot Gonzalez RN Service: ? Author Type: Registered Nurse Type: Nursing Progress Note Filed: 08/17/2023 3:34 AM Note Text: 0030 New TF bag hung, TF advanced to 50 ml/hr no c/o gastric upset or nausea. [facility] 08-16-2023 Note [facility] 08-16-2023 Note [facility] 08-15-2023 Note [facility] 08-15-2023 Note [facility] 08-14-2023 Note [facility] 08-14-2023 Note [facility] 08-14-2023 Miscellaneous Notes Kindra from Critical Access [...] to fax paperwork. documented in this encounter [facility] 08-13-2023 Note [facility] 08-13-2023 Note [facility] 08-12-2023 Note [facility] 08-11-2023 Note [facility] 08-10-2023 Note [facility] 08-09-2023 Note [facility] 08-08-2023 Note [facility] 08-07-2023 History and physical note New [...] and symmetric. Sensation grossly intact. Abdomen: Negative Medical Accounting Clerk present: Yes () ASSESSMENT 68-year-old male with [...] Level: 5 - High Cleveland Alberts MD [facility] [place] [facility] / [facility] August 07, 2023 documented in this encounter [facility] 08-05-2023 Miscellaneous Notes Called patient and spoke with him about coming for a visit with Dr. Alberts. Patient understands he was referred by Dr. Linder. Asked patient to bring any past medical history with him. Patient understanding and thankful for call and appointment. *Requested images to be pushed from [facility] 08/05. Also faxed release of information to patients PCP - Dr. Cannon in [facility]. documented in this encounter [facility] 07-29-2023 Miscellaneous Notes New patient referral from Dr. 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 Contacted the office to resend records. Please advise on scheduling documented in this encounter [facility] 07-26-2023 Progress note Note Date/Time July 26, 2023 11:49am [facility] [address] [place] [address] Nephrology Progress Note Signed Patient: Aisha Julien MR#: [id number] : 1955 Acct:[id number] Age/Sex: 68 / M Adm Date: 3 Loc: Room: [address] [place] [address] Type: ADM IN Attending Dr: Gela Eller [...] 5 Mg Tablet) [facility] [place] [place] Stop: 07/24/24 08:59 Last Admin: 07/26/23 08:40 Dose: 5 mg Hydralazine HCl (Hydralazine 20 Mg/Ml Vial) 10 mg IV-PUSH Q4H PRN PRN Reason: if SBP > 185 Stop: 07/23/24 16:29 Hydromorphone HCl (Hydromorphone 1 Mg/Ml Syringe) 0.25 mg IV-PUSH Q4H PRN PRN Reason: pain Lactated Ringer's (Lactated Ringers) 1,000 mls @ 75 mls/hr IV .[id number] [facility] Stop: 07/24/24 13:14 Last Admin: 07/26/23 03:54 Dose: 75 mls/hr Sodium Chloride (0.9% Sodium Chloride 1,000 Ml) 1,000 mls @ 20 mls/hr IV .Q24H [facility] Stop: 07/24/24 13:59 Last Admin: 07/25/23 13:51 Dose: 20 mls/hr Pantoprazole Sodium (Pantoprazole 40 Mg Vial) 40 mg IV-PUSH BID [facility] Stop: 07/23/24 20:59 Last Admin: 07/26/23 08:40 [...] 0.4 Mg Cap.Er.24h) 0.4 mg PO QAM [facility] Stop: 07/24/24 08:59 Last Admin: 07/26/23 08:40 [...] by Jose A Calzada MD> 07/26/23 [address] [facility] Work Phone: 1(240) 207-763312-01-2023 Progress note Author Gela Eller [facility] July 25, 2023 12:59pm Note Date/Time July 25, 2023 1 2:59pm [facility] [address] [place] [address] Hospitalist Progress Note Signed Patient: Aisha Julien MR#: [id number] : 1955 Acct:[id number] Age/Sex: 68 / M Adm Date: 3 Loc: Room: [address] [place] [address] Type: ADM IN Attending Dr: Gela Eller [...] signed by Gela Eller MD> 07/25/23 125[address] [facility] Work Phone: 1(964) 353-879812-01-2023 History and physical note Author Gela Eller [facility] July 25, 2023 12:57pm Note Date/Time July 24, 2023 4:18pm [facility] [address] [place] [address] Hospitalist H&P Signed Patient: Aisha Julien MR#: [id number] : 1955 Acct:[id number] Age/Sex: 68 / M Adm Date: 3 Loc: Room: [address] [place] [address] Type: ADM IN Attending Dr: Gela Eller [...] any coronary artery disease. Ventriculogram showed ejection [id number]% Admission EKG showed normal sinus rhythm without [...] mass, portal vein/SMV thrombosis cannot be excluded. [facility] Medical History (Updated 07/25/23 @ 12:42 [...] finasteride 5 mg tablet 5 mg PO [facility] 01/15/23 [History Confirmed 07/24/23] potassium gluconate 595 mg (99 mg) tablet 99 mg PO [facility] 01/15/23 [History Confirmed 07/24/23] diltiazem HCl [...] % (Auto) 12.6 % (.) 07/24/23 12:28 [place] % (Auto) 10.3 % (.) 07/24/23 12:28 Eos % (Auto) 1.0 % (.) 07/24/23 12:28 Baso % (Auto) 0.5 % (.) 07/24/23 12:28 Nucleat RBC Rel Count 0.2 /100 WBC (0-0.5) 07/24/23 12:28 Neut # (Auto) 5.5 x10E3/uL (1.8-7.7) 07/24/23 12:28 Lymph # (Auto) 0.9 x10E3/uL (1.00-4.8) L 07/24/23 12:28 [place] # (Auto) 0.8 x10E3/uL (0.0-0.8) 07/24/23 12:28 [...] pH 5.5 (5.0-9.0) 07/24/23 13:54 Ur Specific [place] 1.015 (1.001-1.030) 07/24/23 13:54 Urine Protein 30 [...] signed by Gela Eller MD> 07/25/23 [address] [facility] Work Phone: 1(356) 708-594612-01-2023 Consult note Author Jose A Calzada [facility] July 25, 2023 12:45pm Note Date/Time July 25, 2023 1 2:45pm [facility] [address] [place] [address] Nephrology Consult Note Signed Patient: Aisha Julien MR#: [id number] : 1955 Acct:[id number] Age/Sex: 68 / M Adm Date: 3 Loc: 3T Room: [address] [place] [address] Type: ADM IN Attending Dr: Gela Eller [...] 12 system review is negative this morning [facility] Medical History (Updated 07/25/23 @ 12:42 [...] tablet,extended release 24 hr 50 mg PO [facility] 11/29/21 [History Confirmed 07/24/23] tamsulosin 0.4 mg capsule 0.4 mg PO [facility] 11/29/21 [History Confirmed 07/24/23] finasteride 5 mg tablet 5 mg PO [facility] 01/15/23 [History Confirmed 07/24/23] potassium gluconate 595 mg (99 mg) tablet 99 mg PO [facility] 01/15/23 [History Confirmed 07/24/23] diltiazem HCl [...] 5 mg PO [facility] Stop: 07/24/24 08:59 Hydralazine HCl (Hydralazine 20 Mg/Ml Vial) 10 mg IV-PUSH Q4H PRN PRN Reason: if SBP > 185 Stop: 07/23/24 16:29 Hydromorphone HCl (Hydromorphone 1 Mg/Ml Syringe) 0.25 mg IV-PUSH Q4H PRN PRN Reason: pain Potassium Chloride/Sodium Chloride (0.9% Nacl-40 Meq Kcl) 1,000 mls @ 150 mls/hr IV .Q6H40M [facility] Stop: 07/23/24 13:44 Last Admin: 07/25/23 11:24 Dose: 150 mls/hr Pantoprazole Sodium (Pantoprazole 40 Mg Vial) 40 mg IV-PUSH BID [facility] Stop: 07/23/24 20:59 Last Admin: 07/25/23 07:59 [...] Appearance Clear Urine pH 5.5 Ur Specific [place] 1.015 Urine Protein 30 H Urine Glucose (UA) Normal Urine Ketones Trace H Urine Occult Blood Negative Urine Nitrite Negative Ur Leukocyte Esterase Negative Urine RBC 5-9 H Urine WBC 0-1 Urine Bacteria None seen 07/25/23 05:46 BUN 44 H Creatinine 2.86 H D Albumin 3.4 L Urine Color Urine Appearance Urine pH Ur Specific [place] Urine Protein Urine Glucose (UA) Urine Ketones [...] Santa Jr., D.O.07/24/2023 2:43 PM Dictation Location: [place] [address] Any impression(s) listed above is documentation that [...] by Jose A Calzada MD> 07/25/23 12[address] [facility] Work Phone: 1(529) 770-884212-01-2023 [facility] Consult note Author Nohemy Linder [facility] July 24, 2023 4:38pm Note Date/Time July 24, 2023 4:35pm [facility] [address] [place] [address] Gastroenterology Consult Note Signed Patient: Aisha Julien MR#: [id number] : 1955 Acct:[id number] Age/Sex: 68 / M Adm Date: 3 Loc: Room: [address] [place] [address] Type: ADM IN Attending Dr: Gela Eller [...] negative unless noted below or in HPI [facility] Medical History (Updated 07/24/23 @ 16:37 [...] finasteride 5 mg tablet 5 mg PO [facility] 01/15/23 [History Confirmed 07/24/23] potassium gluconate 595 mg (99 mg) tablet 99 mg PO [facility] 01/15/23 [History Confirmed 07/24/23] Exam Physical [...] % (Auto) 75.6 Lymph % (Auto) 12.6 [place] % (Auto) 10.3 Eos % (Auto) 1.0 Baso % (Auto) 0.5 Nucleat RBC Rel Count 0.2 Neut # (Auto) 5.5 Lymph # (Auto) 0.9 L [place] # (Auto) 0.8 Eos # (Auto) 0.1 [...] Color Urine Appearance Urine pH Ur Specific [place] Urine Protein Urine Glucose (UA) Urine Ketones Urine Occult Blood Urine Nitrite Urine Bilirubin Urine Urobilinogen Ur Leukocyte Esterase Urine RBC Urine WBC Ur Squamous Epith Cells Urine Bacteria Hyaline Casts 07/24/23 07/24/23 07/24/23 12:28 12:28 13:54 Corrected WBC Uncorrected WBC Count RBC Hgb Hct MCV MCH MCHC RDW Plt Count MPV Neut % (Auto) Lymph % (Auto) [place] % (Auto) Eos % (Auto) Baso % (Auto) Nucleat RBC Rel Count Neut # (Auto) Lymph # (Auto) [place] # (Auto) Eos # (Auto) Baso # [...] Appearance Clear Urine pH 5.5 Ur Specific [place] 1.015 Urine Protein 30 H Urine Glucose [...] <Electronically signed by Nohemy Linder MD> 07/24/238 [facility] Work Phone: 1(169) 510-232107-01-2023 Evaluation note* Encounter Date Diagnosis Assessment Notes Treatment Notes Treatment Clinical Notes Feb, Visit for suture removal (ICD-10 - Z48.02) sutures removed successfully--see procedural note. wound healed up well. no questions or concerns. follow up with PCP prn. Feb, Laceration of nose, initial encounter (ICD-10 - S01.21XA) lac repair done in [facility] [employer] Other 05-26-2023 Discharge summary Author Joselito Madsen [facility] January 17, 2023 10:24am Note Date/Time January 17, 2023 10:22 am [facility] [address] [place] [address] Discharge Summary Signed Patient: Aisha Julien MR#: [id number] : 1955 Acct:[id number] Age/Sex: 67 / M Adm Date: 3 [...] Low-Cholesterol Additional Instructions: DISCHARGE INSTRUCTIONS FOR CARDIAC STITCHER UTILITY PHONE NUMBER OF YOUR PHYSICIAN: [phone] PROCEDURE: Heart Cath The following instructions have [...] cold, numb, blue or white, call the sanitary engineer immediately. 4. ACTIVITY: You are advised to [...] bottle, follow the instructions on the bottle. [facility] is not responsible for incorrect [...] <Electronically signed by Joselito Madsen DO> 01/17/[address] [place] [address] Work Phone: 1(508) 131-690305-26-2023 Procedure [facility]03-30-2022 Evaluation note* Encounter Date Diagnosis Assessment Notes Treatment Notes Treatment Clinical Notes Oct, Abdominal pain (ICD-10 - R10.9) OBTAIN RECORDS FROM [facility] OB[place] COLONOSCOPY [place] [facility] Oct, Gastritis without bleeding, unspecified chronicity, unspecified gastritis type (ICD-10 - K29.70) Oct, GERD (gastroesophageal reflux disease) (ICD-10 - K21.9) STOP FAMOTIDINE [employer] Other 03-16-2022 History of Present illness Narrative* Caity Hamilton RCP - 11/07/2021 12:30 PM EDT The patient was educated on the use of an event monitor. The patient's comprehension was high. The patient was able to verbalize recall. The patient was instructed on how and when to return the monitor. [facility] Work Phone: 1(295) 311-145003-16-2022 Note [facility] Vascular Carotid Procedure Patient Name WILY LEONARD Date of Study 11/07/2021 L Date of 1955 Gender Male Age 66 year(s) Race Room Number Corporate ID [id number] # Patient Acct [id number] # MR # [id number] Operating Room Specialist Jocelyn Mcghee, RT Interpreting Estephania Pichardo Physician [...] the vertebrals. Signature Electronically signed by PERRY Magaña)Lindsey)STAN)[facility]Operating Room Specialist) on 11/07/2021 11:33 AM Findings: Right Impression: [...] unspecified syncope type documented in this encounter [employer] Phone: evaluation note* Diagnosis Bruit Other symptoms involving cardiovascular system documented in this encounter [employer] [facility] Phone: evaluation noteNo [facility] Other Evaluation noteNo assessment information available [facility] Work Phone: Evaluation note* Diagnosis Onset Date Resolution Status Acute renal failure acute Epigastric pain acute Hypokalemia acute Hypotension acute Small bowel mass acute Unintentional weight loss ac [facility] Work Phone: Evaluation note* Diagnosis Onset Date Resolution Status Acute renal failure acute Duodenal mass acute Epigastric pain acute Hypokalemia acute Hypotension acute Small bowel mass acute Unintentional weight loss [facility] Work Phone: Evaluation note* Diagnosis Gastric outlet obstruction- Primary Acquired hypertrophic pyloric stenosis [facility]orted* Type Description Date Medical History HTN Medical History GERD Surgical History knee arthroscopy BILATEAL-3 RAMSES ES [address] [employer] [facility] [employer] Other Hisxgxy general Narrative - Reported* Type Description Date Medical History HTN Medical History GERD Surgical History knee arthroscopy BILATEAL-3 RAMSES ES EACH Hospitalization History DEHYDRATION [facility] Other Hospital Discharge instructions Additional Instructions DISCHARGE INSTRUCTIONS FOR CARDIAC STITCHER UTILITY PHONE NUMBER OF YOUR PHYSICIAN: [phone] PROCEDURE: Heart Cath The following instructions have [...] cold, numb, blue or white, call the sanitary engineer immediately. 4. ACTIVITY: You are advised to [...] bottle, follow the instructions on the bottle. [facility] is not responsible for incorrect prescription information provided by the patient during their visit. Do not stop your medications without consulting your health care provider. Please take the list with you to your next doctor's appointment.[facility] Work Phone: Hospital Discharge instructions Additional Instructions You will need to follow-up with [facility] physician Dr. Bety Amin for further evaluation of your duodenal mass. Dr. Tadeo's office will arrange appointment and we will give you a [facility] Work Phone: Progress note Author Gela Eller [facility] July 26, 2023 2:50pm Note Date/Time July 26, 2023 2 :50pm [facility] [address] [place] [address] Hospitalist Progress Note Signed Patient: Aisha Julien MR#: [id number] : 1955 Acct:[id number] Age/Sex: 68 / M Adm Date: 3 Loc: Room: [address] [place] [address] Type: ADM IN Attending Dr: Gela Eller [...] Lactated Ringers IV 07/24/24 13:14 75 mls/hr .[id number] NOMI Administration Sodium Chloride 1,000 mls @ [...] external mass effect/compression I did discuss with reject opener and filler, his office will arrange follow-up with gastroenterology [...] signed by Gela Eller MD> 07/26/23 14[address] [facility] Work Phone: Summary Purpose Family History [...] Procedures Cardiac event monitor Douglas Gutierrez MD [address] [place] [address] Referral ID Status Reason Start Date Expiration Date Visits Re quested Visits Authorized [id number] Closed 10/25/2021 10/25/2022 1 1 Specialty Diagnoses / Procedures Referred By Contac t Referred To Contact Cardiology Diagnoses Chest pain, unspecified type Syncope, unspecified syncope type R07.9 (ICD-10-CM) - Chest pain, unspecified type Procedures Stress test, myoview CHG MYOCARDIAL SPECT MULTIPLE STUDIES 89153 - CHG MYOCARDIAL SPECT MULTIPLE STUDIES Douglas Gutierrez MD [address] [place] [address] [place] [address] Referral ID Status Reason Start Date Expiration Date Visits Re quested Visits Authorized [id number] Closed 10/25/2021 10/25/2022 4 4 Specialty Diagnoses / Procedures Referred By Contac t Referred To Contact Vascular Lab Diagnoses Bruit R09.89 (ICD-10-CM) - Bruit Procedures VL DUP CAROTID BILATERAL SC DUPLEX SCAN EXTRACRANIAL,BILAT 20382 - SC DUPLEX SCAN EXTRACRANIAL,BILAT Douglas Gutierrez MD [address] [place] [address] Referral ID Status Reason Start Date Expiration Date V isits Requested Visits Authorized [id number] Pending Review 10/25/2021 10/25/2022 1 1 Chief [...] section and content) DATE CREATED AUTHOR 10/17/2021 [facility] dical Specialist DATE CREATED AUTHOR AUTHOR'S ORGANIZ ATION 11/04/2021 [facility] DATE CREATED AUTHOR AUTHOR'S ORGANIZ ATION 12/15/2021 [facility] DATE CREATED AUTHOR AUTHOR'S ORGANIZ ATION 07/05/2022 [facility] DATE CREATED AUTHOR AUTHOR'S ORGANIZ ATION 02/03/2023 [facility] DATE CREATED AUTHOR AUTHOR'S ORGANIZ ATION 08/01/2023 [facility] dical Specialists EPIC DATE CREATED AUTHOR AUTHOR'S ORGANIZ ATION 09/04/2023 [facility] DATE CREATED AUTHOR AUTHOR'S ORGANIZ ATION 09/08/2023 [facility] DATE CREATED AUTHOR AUTHOR'S ORGANIZ ATION 09/16/2023 [facility] Reason for Visit (unrecogniz ed section and content) Specialty Diagnoses / Procedures Referred By Erlin hernandez Referred To Contact Diagnoses Chest pain, unspecified type Syncope, unspecified syncope type Procedures Cardiac event monitor Douglas Gutierrez MD [address] [place] [id number] Referral ID Status Reason Start Date Expiration Date Visits Re quested Visits Authorized [id number] Closed 10/25/2021 10/25/2022 1 1 Specialty Diagnoses / Procedures Referred By Erlin hernandez Referred To Contact Cardiology Diagnoses Chest pain, unspecified type Syncope, unspecified syncope type R07.9 (ICD-10-CM) - Chest pain, unspecified type Procedures Stress test, myoview CHG MYOCARDIAL SPECT MULTIPLE STUDIES 45698 - CHG MYOCARDIAL SPECT MULTIPLE STUDIES Douglas Gutierrez MD [address] [place] [address] [facility] [address] [place] [address] Referral ID Status Reason Start Date Expiration Date Visits Re quested Visits Authorized [id number] Closed 10/25/2021 10/25/2022 4 4 Specialty Diagnoses / Procedures Referred By Contac t Referred To Contact Vascular Lab Diagnoses Bruit R09.89 (ICD-10-CM) - Bruit Procedures VL DUP CAROTID BILATERAL SC DUPLEX SCAN EXTRACRANIAL,BILAT 91883 - SC DUPLEX SCAN EXTRACRANIAL,BILAT Douglas Gutierrez MD [address] [place] [address] Referral ID Status Reason Start Date Expiration Date V isits Requested Visits Authorized [id number] Pending Review 10/25/2021 10/25/2022 1 1 Reason [...] Active Nohemy Linder MD Other Provider Active Compensation Coordinator Relationship Specialty Start Date End Date Rene Cannon MD [address] [place] [address] PCP - General 10/17/21 Compensation Coordinator Relationship Specialty Start Date End Date Rene Cannon MD [address] [place] [address] PCP - General 10/17/21 Compensation Coordinator Relationship Specialty Start Date End Date Rene Cannon MD [address] [place] [address] PCP - General 10/17/21 Compensation Coordinator Relationship Specialty Start Date End Date Rene Cannon MD [address] [facility] [place] [address] PCP - General 10/17/21 Compensation Coordinator Relationship Specialty Start Date End Date Rene Cannon MD [address] [place] [address] PCP - General 10/17/21 Team Status: Inactive Member Role Status Dates Rene Cannon MD Primary Care Provider Active Joselito Madsen DO Attending Provider Active Compensation Coordinator Relationship Specialty Start Date End Date Rene Cannon MD [address] [place] [address] (Fax) PCP - General Family Medicine 08/05/23 Compensation Coordinator Relationship Specialty Start Date End Date Rene Cannon MD [address] [facility] [place] [address] (Fax) PCP - General Family Medicine 08/05/23 Compensation Coordinator Relationship Specialty Start Date End Date Rene Cannon MD [address] [facility] [place] [place] [address] (Fax) PCP - General Family Medicine 08/05/23 Compensation Coordinator Relationship Specialty Start Date End Date Rene Cannon MD [address] [facility] [address] PCP - General Family Medicine 08/05/23 Source Comments (unrecognize d section and content) In the event this informatio n is protected by the Federal Confidentiality of Alcohol and Drug Abuse Patient Records regulations: The Federal rules restrict any use of the information to criminally investigate or prosecute any alcohol or drug abuse patient.[facility] the event this information is protected by the Federal Confidentiality of Alcohol and Drug Abuse Patient Records regulations: The Federal rules restrict any use of the information to criminally investigate or prosecute any alcohol or drug abuse patient.[facility] the event this information is protected by the Federal Confidentiality of Alcohol and Drug Abuse Patient Records regulations: The Federal rules restrict any use of the information to criminally investigate or prosecute any alcohol or drug abuse patient.[facility] the event this information is protected by the Federal Confidentiality of Alcohol and Drug Abuse Patient Records regulations: The Federal rules restrict any use of the information to criminally investigate or prosecute any alcohol or drug abuse patient.[facility] Hospital[facility] the event this information is protected by the Federal Confidentiality of Alcohol and Drug Abuse Patient Records regulations: The Federal rules restrict any use of the information to criminally investigate or prosecute any alcohol or drug abuse patient.[facility] FOR RECORDS PERTAINING TO PATIENTS WHO [...] BE BASED ON THE PRIMARY CLINICAL RECORDS. [facility] [employer] [facility]. provides no warranty or guarantee of the accuracy or completeness of information in this document.
[2023-09-29 12:45] LABS: Alanine Aminotransferase 33 U/L (16-63); Albumin Globulin Ratio 0.9; Albumin Level 3.1 g/dL (3.4-5.0); Alkaline Phosphatase 214 U/L (46-116); Anion Gap 12.6; Aspartate Amino Transferase 26 U/L (15-37); BUN Creatinine Ratio 33.3; Bilirubin Total 0.6 mg/dL (0.2-1.0); Calcium 8.4 mg/dL (8.5-10.1); Carbon Dioxide 31.1 mmol/L (21.0-32.0); Chloride 100 mmol/L (98-107); Estimated GFR (African America >60 (>=60); Estimated GFR (Non-African Ame >60 (>=60); Globulin 3.6 g/dL; Glucose 93 mg/dL (74-106); Phosphorus 3.9 mg/dL (2.6-4.7); Potassium 3.7 mmol/L (3.5-5.1); Sodium 140 mmol/L (136-145); Total Protein 6.7 g/dL (6.4-8.2); Triglycerides 33 mg/dL (<=150)
[2023-09-29 12:47] LABS: Basophils Percent Auto 0.6 % (0.2-2.0); Eosinophils Absolute Auto 0.1 10^3/uL (0.0-0.7); Eosinophils Percent Auto 2.4 % (0.9-7.0); Hematocrit 31.6 % (42.0-54.0); Hemoglobin 10.4 g/dL (14.0-18.0); Immature Granulocytes Abs Auto 0.02 10^3/uL (0.00-0.03); Immature Granulocytes Pct Auto 0.4 % (0.0-0.5); Lymphocytes Absolute Auto 0.9 10^3/uL (1.2-3.8); Lymphocytes Percent Auto 16.6 % (20.5-60.0); Mean Corpuscular HGB Conc 32.9 g/dL (29.9-35.2); Mean Corpuscular Hemoglobin 29.7 pg (25.9-34.0); Mean Corpuscular Volume 90.3 fL (80.0-94.0); Mean Platelet Volume 12.3 fL (9.5-13.5); Monocytes Absolute Auto 0.8 10^3/uL (0.3-0.8); Monocytes Percent Auto 13.8 % (1.7-12.0); Neutrophils Absolute Auto 3.6 10^3/uL (1.4-6.5); Neutrophils Percent Auto 66.2 % (43.0-75.0); Platelet Count 245 10^3/uL (150-450); Red Cell Distribution Width 13.5 % (11.0-15.0); White Blood Count 5.4 10^3/uL (4.0-11.0)
== END 2023-09-29 11:47 | disposition home or self-care (01) ==
LOC: LAB 11:46
DX: Z95.9 Presence of cardiac and vascular implant and graft, unspecified (principal)
CPT/HCPCS: 36415; 80053; 83735; 84100; 84478; 85025

== ENCOUNTER 2023-10-06 11:28 | Outpatient (REF) | payer BC, SELFPAY ==
--- OUTSIDE RECORDS SUMMARY | 2023-10-06 11:34 | XMS_ITS | CCD ---
Author Name Unknown Address [address] [facility] [address] [place] [address] Organization [facility] Care Team Providers Care Branner Machine Tender Name Role Phone DAVIS, DR IERLAND Admitting Unavailable HEMEYER, DR IRELAND Attending Unavailable HEMEYER, DR IRELAND Primary Care Unavailable HEMEYER, DR IRELAND Consulting Unavailable KATHRYN, DR DEBORAH Carl Consulting Unavailable DOUGLAS GUTIERREZ Admitting Unavailable KATHARINAESLAURYN, DOUGLAS Attending Unavailable DAVIS, DR IRELAND Primary Care Unavailable KATHRYN, DR DEBORAH Carl Consulting Unavailable VIGESLAURYN, DOUGLAS Consulting Unavailable DAVIS, DR IRELAND Admitting Unavailable HEMEYER, DR IRELAND Attending Unavailable HEMEYER, DR IRELAND Primary Care Unavailable HEMEYER, DR IRELAND Consulting Unavailable VENKATAYER, DR IRELAND Admitting Unavailable HEMEYER, DR IRELAND Attending Unavailable HEMEYER, DR IRELAND Primary Care Unavailable HEMEYER, DR IRELAND Consulting Unavailable Venkatayer Rene ARNDT Primary Care Provider [phone] DOUGLAS GUTIERREZ Referring Unavailable RENE CANNON Primary Care Unavailable RENE CANNON Primary Care Unavailable VIGESAA, DOUGLAS S Referring Unavailable VIGESAA, DOUGLAS S Referring Unavailable HEMERENE BASURTO Primary Care Unavailable VIGESAA, DOUGLAS S Referring Unavailable RENE CANNON Primary Care Unavailable VIGESAA, DOUGLAS S Referring Unavailable RENE CANNON Primary Care Unavailable HEMERENE BASURTO Primary Care Unavailable VIGESAA, DOUGLAS S Referring Unavailable Deborah Magallanes Unavailable INOCENCIO GUTIERREZ Attending Unavailab INOCENCIO Pavon Admitting Unavailab MD Rene Ramos Primary Care Provider DO Joselito Madsen Attending Provider Arnel Madsen Referring Unavailable Davis, Dr. Rene Diana Primary Care Unava ilable Arnel Madsen Attending Unavailable Arnel Madsen Referring Unavailable Davis, Dr. Rene Diana Primary Care Unava ilable Arnel Madsen Attending Unavailable Rene Cannon Unavailable Unavailable Unavailable EmanuelLucerogy Unavailable MD Rene Cannon Primary Care Provider DO Jean Paul Gutiérrez Emergency Provider MD Gela Eller Admit Provider MD Gela Eller Attending Provider MD Jose A Calzada Other Provider MD Niyah Imhilary Other Provider Unavailable Primary Care Provider Unavailabl e RENE CANNON Attending Unavailable RENE CANNON Attending Unavailable RENE CANNON Attending Unavailable Rene Cannon MD Primary Care Provider Niyah Imad Unavailable Joselito Madsen Admitting Unavailable Joselito Madsen Attending Unavailable Rene Canonn Primary Care Unavailable Joselito Madsen Admitting Unavailable Joselito Madsen Attending Unavailable Rene Cannon Primary Care Unavailable Rene Cannon Primary Care Unavailable Anablele Ellera Admitting Unavailable Anabelle Ellera Attending Unavailable Jose A Calzada Consulting Unavailable Nohemy iLnder Consulting Unavailable BOLIVAR DEAL Consulting Unavailable RENE CANNON Primary Care Unavailab le NAFFOUJE, SAMER A Attending Unavailable NAFFOUSILVANO, SAMER A Admitting Unavailable NAFFOBHAVANA, SAMER A Admitting Unavailable RENE CANNON Primary Care Unavailab le NAFFOUJE, SAMER A Attending Unavailable NAFFOUSILVANO, SAMER A Attending Unavailable RENE CANNON [facility] Care Unavailab le RENE CANNON Primary Care Unavailab le NAFFOUJE, SAMER A Referring Unavailable NAFAMANDA, SAMER A Attending Unavailable RENE CANNON Primary Care Unavailab le NAFFOUJE, SAMER A Attending Unavailable RENE CANNON BRAXTON Primary Care Unavailab NOHEMY Garcia Referring Unavailable Medications Current Medications Medication Drug [...] Start: 10-23-2021 take 1 tablet by seda once daily Calcium Carb-Cholecalciferol (CALCIUM+D3) 500-400 MG-UNIT [...] Start: 10-24-2021 take 1 capsule by mo [facility] once daily in the evening dicyclomine (BENTYL) [...] mg by mouth every morning. 0 07/10/2023 Active Start: 10-23-2021 End: 07-24-2023 take 240 mg by mouth once daily in the morning Diltiazem Hcl Discontinued 240 MG PO Every morning November 28, 2021 11:00pm July 24, 2023 5:37pm Comment on above: Take 240 mg by mouth every morning. finasteride 5 mg oral tablet (11 sources) 5-alpha Reductase Inhibitor Start: 05-25-2023 take 1 tablet by mouth every other day finasteride (PROSCAR) 5 mg tablet Take 5 mg by mouth every other day. 0 05/25/2023 Active Start: 01-15-2023 take 5 mg by mouth [...] Active losartan potassium 100 mg oral tablet (20 sources) Angiotensin 2 Receptor Keshawn Start: 10-23-2021 End: 07-26-2023 take 1 tablet by mouth once daily in the morning losartan (COZAAR) 100 mg tablet Take 100 mg by mouth every morning. 0 07/10/2023 Active Comment on above: Take 100 mg by mouth every morning. 24 hr metoprolol succinate 100 mg extended release oral tablet (20 sources) beta-Adrenergic Keshawn Start: 07-10-2023 take 50 mg by mouth once metoprolol succinate ER (TOPROL XL) 100 mg Take 50 mg by mouth one time only. 0 07/10/2023 Active Start: 11-29-2021 take 50 mg by mouth [...] time only. ondansetron 4 mg oral tablet (3 sources) Serotonin-3 Receptor Antagonist Start: 3 take 1 tablet by mouth every eight hours as needed for nausea ondansetron (ZOFRAN) 4 mg tablet TAKE 1 TABLET BY MOUTH EVERY 8 HOURS NEEDED FOR NAUSEA OR FOR VOMITING FOR UP TO 7 DAYS 0 07/10/2023 Active Comment on above: TAKE 1 TABLET BY SEDA TH EVERY 8 HOURS NEEDED FOR NAUSEA OR FOR VOMITING FOR UP TO 7 DAYS pantoprazole 40 mg delayed release oral tablet (6 sources) Proton Pump Inhibitor Start: 3 take 1 tablet by mouth once pantoprazole DR (PROTONIX) 40 mg tablet Take 1 tablet by mouth every afternoon. 0 07/26/2023 Active Start: 12-20-2021 take 1 tablet by seda th every twenty-four hours Pantoprazole Sodium 40 MG 1 tablet Orally Once a day for 30 days Nov, Active Comment on above: Take 1 tablet by seda th every afternoon. PEPTAMEN 1.5 0.068 gram- 1.5 kcal/mL (1 source) Start: 08-13-2023 End: 08-14-2023 PEPTAMEN 1.5 0.068 gram- 1.5 kcal/mL Tube [...] Enteral Access: PEG with Jejunal Extension Potassium (3 sources) potassium (POTAS ELVER ORAL) Take by mouth. 0 Active potassium (POTAS ELVER ORAL) Take by mouth. 0 Suspended Comment on above: Take by mouth. sucralfate 1000 mg oral tablet (6 sources) Aluminum Complex Start: 11-29-2021 End: 01-15-2023 take 1 g by mouth three times daily Sucralfate Discontinued 1 GM PO Three times daily November 28, 2021 11:00pm January 15, 2023 7:10am Start: 11-21-2021 take 1 tablet by seda th every eight hours Sucralfate 1 GM 1 TABLET Orally THREE TIMES A DAY for 30 day(s) Oct, Active tamsulosin hydrochloride 0.4 mg oral capsule (20 sources) alpha-Adrenergic Keshawn Start: 10-23-2021 take 0.4 mg by mouth once tamsulosin (FLOMAX) 0.4 mg Take 0.4 mg by mouth one time only. 0 05/25/2023 Active Comment on above: Take 0.4 mg by [...] Tachycardia, unspecified; Translations: [Tachycardia] Onset: 3 Episodic Epilepsy; convulsions (1 source) Seizure; Translations: [Unspecified convulsions] Onset: 3 08-16-2023 Episodic Esophageal disorders (9 sources) Gastroesophageal reflux disease; Translations: [Gastro-esophageal reflux disease without esophagitis] Onset: 2 Resolved: 2 Chronic Essential hypertension (3 sources) Hypertensive disorder; Translations: [Unspecified essential hypertension] Onset: 3 08-08-2023 Chronic Fluid and electrolyte disorders (11 sources) Dehydration; Translations: [Hypokalemia] Onset: 2 Episodic Gastritis and duodenitis (6 sources) Gastritis; Translations: [Gastritis, unspecified, without bleeding] Onset: 2 Resolved: 2 Episodic Hyperplasia of prostate (1 source) Benign prostatic hyperplasia; Translations: [Benign prostatic hyperplasia without lower urinary tract symptoms] 07-25-2023 Chronic Malaise and fatigue (3 sources) Other fatigue; Translations: [Weakness] Onset: 3 08-15-2023 Episodic Malignant neoplasm without specification of site (1 source) Primary malignant neuroendocrine neoplasm of ileum; Translations: [Other malignant neuroendocrine tumors] 10-03-2023 Chronic Nonspecific chest pain (2 sources) Chest pain; Translations: [Chest pain, unspecified] Episodic Nutritional deficiencies (4 sources) Deficiency of macronutrients; Translations: [Unspecified severe protein-calorie malnutrition] Onset: 3 08-08-2023 Chronic Open wounds of head; neck; and trunk (1 source) Laceration without foreign body of nose, initial encounter Episodic Other aftercare (1 source) Encounter for removal of sutures Episodic Other aftercare (2 sources) Patient encounter status; Translations: [Encounter for therapeutic [...] Episodic Other disorders of stomach and duodenum (3 sources) Pyloric obstruction; 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] Onset: 4 08-07-2023 Episodic Other disorders of stomach and duodenum (2 sources) Adult hypertrophic pyloric stenosis; Translations: [Gastric outlet obstruction] Onset: 4 Episodic Other gastrointestinal disorders (2 sources) Patient encounter status; Translations: [Encounter for attention to gastrostomy] Onset: 4 10-03-2023 Chronic Other gastrointestinal disorders (2 sources) Mass of [...] Episodic Other nutritional; endocrine; and metabolic disorders (3 sources) Adult failure to thrive syndrome; Translations: [Adult failure to thrive] Onset: 3 08-07-2023 Episodic Other nutritional; endocrine; and metabolic disorders (4 sources) Feeding problem; Translations: [Feeding difficulties] Onset: [...] without septic shock] Onset: 4 Episodic Syncope (11 sources) Syncope and collapse; Translations: [Syncope] Onset: [...] Test Name Value Interpretation Reference Range Facility [facility] 10-02-2023 [facility] Office Visit (MABEL ) -- AISHA JULIEN ([id number]) 1955 M Date Time Provider Department 10/02/23 2:30 PM [facility] During your visit today, we recorded the following information about you: Temperature Pulse Respiration Blood pressure 97.7 degrees 76/minute 16/minute 127/72 Weight Height 68 kg 1.765 m Cleveland Alberts MD 10/03/2023 4:38 PM Signed Established Patient Visit REASON FOR VISIT Follow up imaging History of Present Illness: Aisha Julien is a 68 year old male with 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 He was admitted last month after PEG-J tube was placed but he could not tolerate TF likely to bowel congestion and formation of new moderate volume ascites. He was started on TPN with significant improvement and has been doing very well at home. He takes sips of clears for pleasure and cycles TPN daily. He has gained some weight and denies any abdominal symptoms. He presents today to review his CT which showed the following: CT ABD/PEL W IV CON 10/01/2023: Metastatic neuroendocrine tumor with grossly stable, multifocal measurable disease from recent priors as detailed. Sclerotic osseous foci suspected metastatic and grossly unchanged. Percutaneous gastrojejunostomy remains in place, with mild proximal duodenal dilation, similar to recent prior. No gross interval gastric outlet obstruction otherwise. Minimal residual ascites, intervally improved. FUNCTIONAL STATUS: Do moderate work around the house such as vacuuming, sweeping floors, or carrying in groceries (3.50 METs) PAST MEDICAL HISTORY Diagnosis Date Essential hypertension GERD (gastroesophageal reflux disease) PAST SURGICAL HISTORY Procedure Laterality Date ARTHROSCOPY KNEE DIAGNOSTIC W/WO SYNOVIAL BX SPX Bilateral COLONOSCOPY DIAGNOSTIC 2021 no polyps EGD DIAGNOSTIC 08/14/2023 FAMILY HISTORY Problem Relation Age of Onset Uterine Cancer Mother other (bile duct cancer) Sister Colon Cancer No Family History Social History Tobacco Use Smoking status: Never Smokeless tobacco: Never Vaping Use Vaping Use: Former Substance Use Topics Alcohol use: Yes Comment: a few beers per day Drug use: Not Currently MEDICATIONS Current Outpatient Medications Medication Sig Dispense Refill finasteride (PROSCAR) 5 mg tablet Take 5 mg by mouth every other day. pantoprazole (PROTONIX) 40 mg tablet Take 1 tablet by mouth every afternoon. ondansetron (ZOFRAN) 4 mg tablet TAKE 1 TABLET BY MOUTH EVERY 8 HOURS NEEDED FOR NAUSEA OR FOR VOMITING FOR UP TO 7 DAYS potassium (POTASSIMIN ORAL) Take by mouth. (Patient not taking: Reported on 10/02/2023) dilTIAZem CD (CARDIZEM CD, CARTIA XT) 180 mg 24 hr capsule Take 240 mg by mouth every morning. (Patient not taking: Reported on 10/02/2023) metoprolol succinate ER (TOPROL XL) 100 mg Take 50 mg by mouth one time only. (Patient not taking: Reported on 10/02/2023) tamsulosin (FLOMAX) 0.4 mg Take 0.4 mg by mouth one time only. (Patient not taking: Reported on 10/02/2023) losartan (COZAAR) 100 mg tablet Take 100 mg by mouth every morning. (Patient not taking: Reported on 10/02/2023) No current facility-administered medications for this visit. [...] and itching. Anemia: No PHYSICAL EXAMINATION BP 127/72 Pulse 76 Temp (Src) 97.7 (Oral) Resp 16 Ht 5' 9.5 (1.77m) Wt 150 lb (68.0kg) BMI 21.84 kg/(m2). General Appearance: Well appearing, alert, in no acute distress, well-hydrated, well nourished. Skin: Skin color, texture, turgor normal, no suspicious rashes or lesions Head: Normocephalic, no masses, lesions, tenderness (more content not included)... Normal [facility] CT PANCREAS/PELVIS W IVCONon 10-01-2023 CT PANCREAS/PELVIS W IVCON * * *Final Report* * * DATE OF EXAM: Oct 01 2023 9:04AM [facility] 0553 - CT PANCREAS/PELVIS W IVCON / PROCEDURE REASON: Gastric outlet obstruction * * * * Physician Interpretation * * * * RESULT: EXAMINATION: CT ABDOMEN AND PELVIS WITH IV CONTRAST (PANCREAS PROTOCOL) CLINICAL HISTORY: Assess for resolution of ascites, gastric outlet obstruction. Reported history of metastatic neuroendocrine tumor (probable small bowel origin, additional uncinate process pancreatic biopsy showing neuroendocrine tumor) with previous obstruction near the level of the third duodenum, post percutaneous gastrojejunostomy tube, follow-up. TECHNIQUE: CT of the abdomen and pelvis was performed using multiphase pancreas protocol, scanning from just above the dome of the diaphragm to the symphysis pubis. M: CTAP_x Contrast: IV: 140 ml of Omnipaque 300 Oral: 500 ml of Omni 240 10-25ml diluted with water CT Radiation dose: Integrated Dose-length product (DLP) for this visit = 928 mGy*cm. CT Dose Reduction Employed: Automated exposure control (AEC) COMPARISON: CT 09/02/2023, 08/28/2023, 08/08/2023. RESULT: Liver: No definitively new hepatic lesions. 1 cm hypoattenuating lesion in segment IV and 0.9 cm lesion segment V/, grossly stable (8:30, 55). Pericapsular scalloping along the dome as below. Biliary: No bile duct dilation. Gallbladder is unremarkable. Spleen: No mass. No splenomegaly. Pancreas: Confluent, infiltrative mass and/or jackelyn metastases in the region of the central mesentery and pancreatic uncinate process, not significantly changed from recent prior, measuring approximately 6.8 x 5.1 cm (4:34). The mass again results in compression of the third duodenum, essentially unchanged from recent priors. Nodular lesions within or adjacent to the pancreatic tail, grossly unchanged, for example measuring 2.6 x 2.2 cm (4:45). No main pancreatic duct dilation. Adrenals: No mass. Kidneys: No suspicious renal lesions, calculus, or hydronephrosis. GI tract: Nodular mural enhancement involving distal small bowel with adjacent coarsely calcified jackelyn metastasis measuring approximately 2.4 x 2.3 cm, correlating with known neuroendocrine neoplasm, similar to recent priors (4:77-80). Percutaneous gastrojejunostomy tube in the gastric antrum with extension catheter terminating in the proximal jejunum, unchanged. Mild fluid-filled dilation of the proximal duodenum which tapers at the level of the third duodenum in region of pancreatic/peripancreatic mass, similar to prior, without gross interval gastric dilation otherwise. No dilation or obstruction of the remaining bowel otherwise. Lymph nodes: Additional multifocal jackelyn metastases, survey of the dominant lesions directly compared with recent priors, and not significantly changed, for example; * 2.0 x 1.8 cm left para-aortic node (8:53). * 2.3 x 2.0 cm left para-aortic node (8:47). * 3.6 x 2.3 cm periceliac node (8:35). Multifocal additional mesenteric jackelyn masses as described elsewhere. Mesentery/Peritoneum: Minimal residual dependent ascites, improved from prior. No organized collection. Mesenteric stranding/edema with central mesenteric/peripancreatic jackelyn mass as above and additional right lower quadrant jackelyn metastases. 2.2 cm nodular scalloping along the right hepatic dome, suspicious for peritoneal neoplastic implant and grossly unchanged (8:17). 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 Splenic vein nearly occluded but grossly patent. Associated perigastric paraesophageal, and mesenteric/peripancreatic venous collaterals. Main portal vein is mildly narrowed but grossly patent. Intrahepatic portal venous branches appear grossly patent. Hepatic veins are patent. Celiac axis and SMA remain grossly patent, however SMA is again encased within region of central mesenteric mass. No abdominal aortic aneurysm. Pelvis: Partially decompressed urinary bladder is unremarkable. No organized intrapelvic collection. Bones/Soft Tissues: Numerous ill-defined and nodular osseous sclerotic foci, suspected metastatic and grossly unchanged. 1.7 cm nodular lesion in the midline-left suprapubic soft tissues, suspicious for metastasis but grossly unchanged (8:141). Right gluteal and left obturator internus intramuscular lipomas incidentally noted. Lower thorax: Unremarkable. IMPRESSION: Metastatic neuroendocrine tumor with grossly stable, multifocal measurable disease from recent priors as detailed. Sclerotic osseous foci suspected metastatic and grossly unchanged. Percutaneous gastrojejunostomy remains in place, with mild proximal duodenal dilation, similar to recent prior. No gross interval gastric outlet obstruction otherwise. Minimal residual ascites, intervally improved. Transcribe Date/Time: Oct 01 2023 11:48A Dictated by: NATHALIE (more content not included)... Normal [facility] CNPNon 09-15-2023 CNPN Telephone ([id number]) -- AISHA JULIEN ([id number]) 1955 M Date Time Provider Department 09/15/23 [facility] [id number] During your visit today, we recorded the following information about you: Kelsea Valenzuela MA 09/15/2023 1:04 PM Signed Cesilia from [facility] called needing clarification on his discharge medications. Call back # [phone] Jessie Zamora RN 09/15/2023 4:21 PM Signed Called Cesilia back from [facility] to help clarify medications from recent admission. 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 She need a current medication list faxed to [phone]. If you have any questions she can be reached at [phone]. Thank you! Jessie Zamora RN 09/11/2023 10:01 AM Signed Hospital discharge medication list faxed 09/10/23 to [facility]. Allergies As of Date: 09/10/2023 (No Known Allergies) Date Reviewed: 09/05/2023 Reviewed by: Guerline Peralta RN - Fully Assessed Reason for Visit: current [...] Status:Closed by JESSIE ZAMORA on 09/11/23 Normal [facility] Albumin SerPl-mCncon 024 Albumin [Mass/Vol] 2.9 g/dL Low 3.9-4.9 [facility] Comment on above: Order Comment: Speci men Type: BLOOD SPECIMENOrdering Facility: [facility] Address: [place] [address] Performed By: #### 1 751-7, 54115-6, , 2776-08 ####[facility] LABORATORYCLIA [id number] [place] [address] [place] Basic metabolic 2000 panelon 09-05-2023 Anion gap [Moles/Vol] 10 mmol/L Normal 05-12 [facility] Comment on above: Order Comment: Speci men Type: BLOOD SPECIMENOrdering Facility: [facility] Address: [place] [address] Performed By: #### 1 751-7, 86039-9, , 2776-08 ####[facility] LABORATORYCLIA [id number] [place] [address] [place] Calcium [Mass/Vol] 8.2 mg/dL Low 8.5-10.2 [facility] Comment on above: Order Comment: Speci men Type: BLOOD SPECIMENOrdering Facility: [facility] Address: [place] [address] Performed By: #### 1 751-7, 06906-9, , 2776-08 ####[facility] LABORATORYCLIA [id number] [place] [id number] [place] Chloride [Moles/Vol] 107 mmol/L High 97-105 [facility] Comment on above: Order Comment: Speci men Type: BLOOD SPECIMENOrdering Facility: [facility] Address: [address] [place] [address] Performed By: #### 1 751-7, 33226-8, , 2776-08 ####[facility]ORATORYCLIA [id number] [place] [id number] [place] CO2 [Moles/Vol] 24 mmol/L Normal 22-30 [facility] Comment on above: Order Comment: Speci men Type: BLOOD SPECIMENOrdering Facility: [facility] Address: [address] [place] [address] Performed By: #### 1 751-7, 77378-3, , 2776-08 ####[facility] LABORATORYCLIA [id number] [address] [place] Creatinine [Mass/Vol] 0.83 mg/dL Normal 0.73-1.22 [facility] Comment on above: Order Comment: Speci men Type: BLOOD SPECIMENOrdering Facility: [facility] Address: [address] [place] [address] Performed By: #### 1 751-7, 78437-7, , 2776-08 ####[facility] LABORATORYCLIA [id number] [address] Creatinine and Glomerular filtration rate.predicted panel (S/P/Bld) 95 mL/min/1.73m??? Normal >=60 [facility] Comment on above: Order Comment: Speci men Type: BLOOD SPECIMENOrdering Facility: [facility] Address: [address] [place] [address] Result Comment: Bailey mated Glomerular Filtration Rate [...] actual GFR. Performed By: #### 1 751-7, 23654-4, , 2776-08 ####[facility] MOYERCLIA [id number] [place] [address] [place] Glucose [Mass/Vol] 75 mg/dL Normal 74-99 [facility] Comment on above: Order Comment: Speci men Type: BLOOD SPECIMENOrdering Facility: [facility] Address: [address] [place] [address] Result Comment: The [place] Diabetes [...] 2016.39(Suppl 1). Performed By: #### 1 751-7, 94763-5, , 2776-08 ####[facility] LABORATORYCLIA [id number] [place] [id number] [place] Potassium [Moles/Vol] 4.4 mmol/L Normal 3.7-5.1 [facility] Comment on above: Order Comment: Speci men Type: BLOOD SPECIMENOrdering Facility: [facility] Address: [address] [place] [address] Performed By: #### 1 751-7, 14113-1, , 2776-08 ####[facility] LABORATORYCLIA [id number] [place] [id number] [place] Sodium [Moles/Vol] 141 mmol/L Normal 136-144 [facility] Comment on above: Order Comment: Speci men Type: BLOOD SPECIMENOrdering Facility: [facility] Address: [address] [place] [address] Performed By: #### 1 751-7, 63385-5, , 2777-1 ####[facility] LABORATORYCLIA [id number] [place] [address] [place] Urea nitrogen [Mass/Vol] 25 mg/dL High 9-24 [facility] Comment on above: Order Comment: Speci men Type: BLOOD SPECIMENOrdering Facility: [facility] Address: [address] [place] [id number] Performed By: #### 1 751-7, 39341-5, , 2776-08 ####[facility] LABORATORYCLIA [id number] [place] [id number] [place] CASE MANAGEMon 09-05-2023 CASE MANAGEM Normal [facility] CASE MANAGEM Normal [facility] CASE MANAGEM Normal [facility] CASE MANAGEM Normal [facility]-05[facility] Magn[facility] SerPl-mCncon 09-05 Magnesium [Mass/Vol] 2.2 mg/dL Normal 1.7-2.3 [facility] Comment on above: Order Comment: Speci men Type: BLOOD SPECIMENOrdering Facility: [facility] Address: [address] [place] [address] Performed By: #### 1 751-7, 70059-0, , 2776-08 ####GEOVANNA LABORATORYCLIA [id number] [place] [id number] [place] NUTRITIONon 09-05-2023 NUTRITION Normal [facility] Phosphate SerPl-mCncon 09-05 Phosphate [Mass/Vol] 4.6 mg/dL Normal 2.7-4.8 [facility] Comment on above: Order Comment: Speci men Type: BLOOD SPECIMENOrdering Facility: [facility] Address: [address] [place] [address] Performed By: #### 1 751-7, 38206-2, , 2776-08 ####GEOVANNA LABORATORYCLIA [id number] [place] [id number] [place] Albumin SerPl-mCncon 024 Albumin [Mass/Vol] 2.4 g/dL Low 3.9-4.9 [facility] Comment on above: Order Comment: Speci men Type: BLOOD SPECIMENOrdering Facility: [facility] Address: [address] [facility] [place] [address] Performed By: #### 1 751-7, 59592-4, , 2776-08 ####[facility] LABORATORYCLIA [id number] [place] [address] [place] Basic metabolic 2000 panelon 09-04-2023 Anion gap [Moles/Vol] 6 mmol/L Low 9-18 [facility] Comment on above: Order Comment: Speci men Type: BLOOD SPECIMENOrdering Facility: [facility] Address: [address] [place] [address] Performed By: #### 1 751-7, 49802-7, , 2776-08 ####[facility] LABORATORYCLIA [id number] [place] [address] [place] Calcium [Mass/Vol] 8.0 mg/dL Low 8.5-10.2 [facility] Comment on above: Order Comment: Speci men Type: BLOOD SPECIMENOrdering Facility: [facility] Address: [address] [place] [address] Performed By: #### 1 751-7, 44408-0, , 2776-08 ####GEOV[facility]NA LABORATORYCLIA [id number] [place] [address] [place] Chloride [Moles/Vol] 103 mmol/L Normal 97-105 [facility] Comment on above: Order Comment: Speci men Type: BLOOD SPECIMENOrdering Facility: [facility] Address: [address] [place] [address] Performed By: #### 1 751-7, 07681-9, , 2776-08 ####[facility] LABORATORYCLIA [id number] [place] [address] [place] CO2 [Moles/Vol] 30 mmol/L Normal 22-30 [facility] Comment on above: Order Comment: Speci men Type: BLOOD SPECIMENOrdering Facility: [facility] Address: [address] [place] [address] Performed By: #### 1 751-7, 23580-9, 43416-1, 2776- ####[facility] LABORATORYCLIA [id number] [place] [id number] [place] Creatinine [Mass/Vol] 0.80 mg/dL Normal 0.73-1.22 [facility] Comment on above: Order Comment: Arben suarez Type: BLOOD SPECIMENOrdering Facility: [facility] Address: [address] [place] [address] Performed By: #### 1 751-7, 33294-2, 82174-4, 2776- ####[facility] LABORATORYCLIA [id number] [place] [id number] [place] Creatinine and Glomerular filtration rate.predicted panel (S/P/Bld) 96 mL/min/1.73m??? Normal >=60 [facility] Comment on above: Order Comment: Arben suarez Type: BLOOD SPECIMENOrdering Facility: [facility] Address: [address] [place] [address] Result Comment: Bailey mated Glomerular Filtration Rate [...] actual GFR. Performed By: #### 1 751-7, 48555-0, 96882-5, 2776-08 ####[facility] LABORATORYCLIA [id number] [place] [id number] [place] Glucose [Mass/Vol] 109 mg/dL High 74-99 [facility] Comment on above: Order Comment: Demarcusi men Type: BLOOD SPECIMENOrdering Facility: [facility] Address: [address] [place] [address] Result Comment: The [place] Diabetes [...] 2016.39(Suppl 1). Performed By: #### 1 751-7, 31829-0, , 2776- ####[facility] LABORATORYCLIA [id number] [place] [address] [place] Potassium [Moles/Vol] 4.3 mmol/L Normal 3.7-5.1 [facility] Comment on above: Order Comment: Arben suarez Type: BLOOD SPECIMENOrdering Facility: [facility] Address: [address] [place] [address] Performed By: #### 1 751-7, 10407-8, , 2776-08 ####[facility] LABORATORYCLIA [id number] [place] [address] [place] Sodium [Moles/Vol] 139 mmol/L Normal 136-144 [facility] Comment on above: Order Comment: Arben suarez Type: BLOOD SPECIMENOrdering Facility: [facility] Address: [address] [place] [id number] Performed By: #### 1 751-7, 42567-9, , 2776-08 ####[facility] LABORATORYCLIA [id number] [place] [address] [place] Urea nitrogen [Mass/Vol] 21 mg/dL Normal 9-24 [facility] Comment on above: Order Comment: Arben suarez Type: BLOOD SPECIMENOrdering Facility: [facility] Address: [address] [place] [id number] Performed By: #### 1 751-7, 21650-4, , 2776- ####[facility] LABORATORYCLIA [id number] [place] [id number] [place] CASE MANAGEMon 09-04-2023 CASE MANAGEM Normal [facility] Magnesium [facility] Magnesium [Mass/Vol] 2.1 mg/dL Normal 1.7-2.3 [facility] Comment on above: Order Comment: Speci men Type: BLOOD SPECIMENOrdering Facility: [facility] Address: [address] [place] [address] Performed By: #### 1 751-7, 77102-2, , 2776- ####[facility] LABORATORYCLIA [id number] [place] [id number] [place] NUTRITIONon 09-04-2023 NUTRITION Normal [facility] Phosphate SerPl-ncon 09-04 Phosphate [Mass/Vol] 3.6 mg/dL Normal 2.7-4.8 [facility] Comment on above: Order Comment: Speci men Type: BLOOD SPECIMENOrdering Facility: [facility] Address: [place] [address] Performed By: #### 1 751-7, 15300-9, , 277- ####[facility] LABORATORYCLIA [id number] [place] [id number] [place] Albumin SerPl-mCncon 024 Albumin [Mass/Vol] 2.7 g/dL Low 3.9-4.9 [facility] Comment on above: Order Comment: Speci men Type: BLOOD SPECIMENOrdering Facility: [facility] Address: [place] [address] Performed By: #### 1 751-7, 24119-0, , 27702-22 ####[facility] LABORATORYCLIA [id number] [place] [id number] [place] Basic metabolic 2000 panelon 09-03-2023 Anion gap [Moles/Vol] 9 mmol/L Normal 9-18 [facility] Comment on above: Order Comment: Speci men Type: BLOOD SPECIMENOrdering Facility: [facility] Address: [address], [place] [address] Performed By: #### 1 751-7, 85098-5, 14937-5, 2776- ####[facility] LABORATORYCLIA [id number] [place] [address] [place] Calcium [Mass/Vol] 8.1 mg/dL Low 8.5-10.2 [facility] Comment on above: Order Comment: Speci men Type: BLOOD SPECIMENOrdering Facility: [facility] Address: [address] [place] [id number] Performed By: #### 1 751-7, 29690-3, , 2776- ####[facility] LABORATORYCLIA [id number] [place] [id number] [place] Chloride [Moles/Vol] 97 mmol/L Normal 97-105 [facility] Comment on above: Order Comment: Speci men Type: BLOOD SPECIMENOrdering Facility: [facility] Address: [address] [place] [address] Performed By: #### 1 751-7, 31115-2, , 2776-08 ####[facility] LABORATORYCLIA [id number] [place] [id number] [place] CO2 [Moles/Vol] 31 mmol/L High 22-30 [facility] Comment on above: Order Comment: Speci men Type: BLOOD SPECIMENOrdering Facility: [facility] Address: [address] [place] [id number] Performed By: #### 1 751-7, 65856-4, , 2776- ####[facility] LABORATORYCLIA [id number] [place] [address] [place] Creatinine [Mass/Vol] 0.84 mg/dL Normal 0.73-1.22 [facility] Comment on above: Order Comment: Speci men Type: BLOOD SPECIMENOrdering Facility: [facility] Address: [address] [place] [address] Performed By: #### 1 751-7, 30929-3, 45152-3, 2776- ####[facility] LABORATORYCLIA [id number] [place] [id number] [place] Creatinine and Glomerular filtration rate.predicted panel (S/P/Bld) 95 mL/min/1.73m??? Normal >=60 [facility] Comment on above: Order Comment: Arben suarez Type: BLOOD SPECIMENOrdering Facility: [facility] Address: [address] [place] [address] Result Comment: Bailey mated Glomerular Filtration Rate [...] actual GFR. Performed By: #### 1 751-7, 86013-8, , 2776-08 ####[facility] LABORATORYCLIA [id number] [place] [id number] [place] Glucose [Mass/Vol] 91 mg/dL Normal 74-99 [facility] Comment on above: Order Comment: Arben daniela Type: BLOOD SPECIMENOrdering Facility: [facility] Address: [address] [place] [address] Result Comment: The [place] Diabetes [...] 2016.39(Suppl 1). Performed By: #### 1 751-7, 99206-6, 38927-9, 2776-08 ####[facility] LABORATORYCLIA [id number] [place] [id number] [place] Potassium [Moles/Vol] 4.1 mmol/L Normal 3.7-5.1 [facility] Comment on above: Order Comment: Speci men Type: BLOOD SPECIMENOrdering Facility: [facility] Address: [address] [place] [id number] Performed By: #### 1 751-7, 54299-9, , 2776- ####[facility] LABORATORYCLIA [id number] [place] [id number] [place] Sodium [Moles/Vol] 137 mmol/L Normal 136-144 [facility] Comment on above: Order Comment: Speci men Type: BLOOD SPECIMENOrdering Facility: [facility] Address: [place] [address] Performed By: #### 1 751-7, 26363-8, , 2776-08 ####[facility] LABORATORYCLIA [id number] [place] [id number] [place] Urea nitrogen [Mass/Vol] 21 mg/dL Normal 9-24 [facility] Comment on above: Order Comment: Speci men Type: BLOOD SPECIMENOrdering Facility: [facility] Address: [address] [place] [address] Performed By: #### 1 751-7, 61460-2, , 2776-08 ####[facility] LABORATORYCLIA [id number] [place] [id number] [place] CASE MANAGEMon 09-03-2023 CASE MANAGEM Normal [facility] Magnesium SerPl-mCncon 09-03 Magnesium [Mass/Vol] 2.0 mg/dL Normal 1.7-2.3 [facility] Comment on above: Order Comment: Speci men Type: BLOOD SPECIMENOrdering Facility: [facility] Address: [address] [place] [id number] Performed By: #### 1 751-7, 87357-2, , 2776-08 ####[facility] LABORATORYCLIA [id number] [place] [id number] [place] NUTRITIONon 09-03-2023 NUTRITION Normal [facility]ate [facility] Phosphate [Mass/Vol] 3.7 mg/dL Normal 2.7-4.8 [facility] Comment on above: Order Comment: Speci men Type: BLOOD SPECIMENOrdering Facility: [facility] Address: [address] [place] [address] Performed By: #### 1 751-7, 92689-9, 47938-8, 7-1 ####[facility] LABORATORYCLIA [id number] [place] [id number] [place] ALLIED HEALTHon 09-02-2023 ALLIED HEALTH Normal [facility] Albumin [facility] 024 Albumin [Mass/Vol] 2.8 g/dL Low 3.9-4.9 [facility] Comment on above: Order Comment: Speci men Type: BLOOD SPECIMENOrdering Facility: [facility] Address: [place] [address] Performed By: #### 1 751-7, 93762-5, , 2571-03 ####[facility] LABORATORYCLIA [id number] [place] [id number] [place] Basic metabolic 2000 panelon 09-02-2023 Anion gap [Moles/Vol] 6 mmol/L Low 9-18 [facility] Comment on above: Order Comment: Speci men Type: BLOOD SPECIMENOrdering Facility: [facility] Address: [address] [place] [address] Performed By: #### 1 751-7, 10875-7, , 2571-03 ####[facility] LABORATORYCLIA [id number] [place] [id number] [place] Calcium [Mass/Vol] 8.3 mg/dL Low 8.5-10.2 [facility] Comment on above: Order Comment: Speci men Type: BLOOD SPECIMENOrdering Facility: [facility] Address: [address] [place] [address] Performed By: #### 1 751-7, 54299-8, , 2571-03 ####[facility] LABORATORYCLIA [id number] [place] [address] [place] Chloride [Moles/Vol] 100 mmol/L Normal 97-105 [facility] Comment on above: Order Comment: Speci men Type: BLOOD SPECIMENOrdering Facility: [facility] Address: [address] [place] [address] Performed By: #### 1 751-7, 34406-0, 99948-3, 257-8 ####[facility] LABORATORYCLIA [id number] [place] [id number] [place] CO2 [Moles/Vol] 34 mmol/L High 22-30 [facility] Comment on above: Order Comment: Speci men Type: BLOOD SPECIMENOrdering Facility: [facility] Address: [address] [place] [address] Performed By: #### 1 751-7, 40114-0, 18067-9, 2570-8 ####[facility] LABORATORYCLIA [id number] [place] [id number] [place] Creatinine [Mass/Vol] 0.88 mg/dL Normal 0.73-1.22 [facility] Comment on above: Order Comment: Speci men Type: BLOOD SPECIMENOrdering Facility: [facility] Address: [address] [place] [address] Performed By: #### 1 751-7, 67653-0, 16089-7, 257-8 ####[facility] LABORATORYCLIA [id number] [place] [id number] [facility] [place] Creatinine and Glomerular filtration rate.predicted panel (S/P/Bld) 94 mL/min/1.73m??? Normal >=60 [facility] Comment on above: Order Comment: Speci men Type: BLOOD SPECIMENOrdering Facility: [facility] Address: [address] [place] [address] Result Comment: Bailey mated Glomerular Filtration Rate [...] actual GFR. Performed By: #### 1 751-7, 27729-3, , 2571-03 ####[facility] LABORATORYCLIA [id number] [place] [id number] [place] Glucose [Mass/Vol] 95 mg/dL Normal 74-99 [facility] Comment on above: Order Comment: Arben suarez Type: BLOOD SPECIMENOrdering Facility: [facility] Address: [address] [place] [address] Result Comment: The [place] Diabetes [...] 2016.39(Suppl 1). Performed By: #### 1 751-7, 19133-4, , 2571-03 ####[facility] LABORATORYCLIA [id number] [place] [id number] [place] Potassium [Moles/Vol] 3.4 mmol/L Low 3.7-5.1 [facility] Comment on above: Order Comment: Arben suarez Type: BLOOD SPECIMENOrdering Facility: [facility] Address: [address] [place] [address] Performed By: #### 1 751-7, 58793-2, , 2571-03 ####[facility] LABORATORYCLIA [id number] [place] [id number] [place] Sodium [Moles/Vol] 140 mmol/L Normal 136-144 [facility] Comment on above: Order Comment: Speci men Type: BLOOD SPECIMENOrdering Facility: [facility] Address: [address] [place] [address] Performed By: #### 1 751-7, 17343-4, , 2571-03 ####[facility] LABORATORYCLIA [id number] [place] [id number] [place] Urea nitrogen [Mass/Vol] 24 mg/dL Normal 9-24 [facility] Comment on above: Order Comment: Speci men Type: BLOOD SPECIMENOrdering Facility: [facility] Address: [address] [place] [address] Performed By: #### 1 751-7, 16824-5, , 2571-03 ####[facility] LABORATORYCLIA [id number] [address] [place] CBC panel Auto (Bld)on 09-02 Erythrocyte distribution width (RBC) [Ratio] 12.4 % Normal 11.5-15.0 [facility] Comment on above: Order Comment: Speci men Type: BLOOD SPECIMENOrdering Facility: [facility] Address: [address] [place] [address] Performed By: #### 5 8410-2 ####[facility] LABORATORYCLIA [id number] [place] [id number] [place] Hematocrit (Bld) [Volume fraction] 29.2 % Low 39.0-51.0 [facility] Comment on above: Order Comment: Speci men Type: BLOOD SPECIMENOrdering Facility: [facility] Address: [address] [place] [address] Performed By: #### 5 8410-2 ####[facility] LABORATORYCLIA [id number] [place] [id number] [place] Hemoglobin (Bld) [Mass/Vol] 9.8 g/dL Low 13.0-17.0 [facility] Comment on above: Order Comment: Speci men Type: BLOOD SPECIMENOrdering Facility: [facility] Address: [address] [place] [address] Performed By: #### 5 8410-2 ####[facility] LABORATORYCLIA [id number] [place] [address] [place] MCH (RBC) [Entitic mass] 29.3 pg Normal 26.0-34.0 [facility] Comment on above: Order Comment: Speci men Type: BLOOD SPECIMENOrdering Facility: [facility] Address: [address] [place] [address] Performed By: #### 5 8410-2 ####GE[facility] LABORATORYCLIA [id number] [place] [address] [place] MCHC (RBC) [Mass/Vol] 33.6 g/dL Normal 30.5-36.0 [facility] Comment on above: Order Comment: Speci men Type: BLOOD SPECIMENOrdering Facility: [facility] Address: [address] [place] [address] Performed By: #### 5 8410-2 ####[facility] LABORATORYCLIA [id number] [place] [address] [place] MCV (RBC) [Entitic vol] 87.4 fL Normal 80.0-100.0 [facility] Comment on above: Order Comment: Speci men Type: BLOOD SPECIMENOrdering Facility: [facility] Address: [address] [place] [address] Performed By: #### 5 8410-2 ####[facility] LABORATORYCLIA [id number] [address] [place] Nucleated RBC (Bld) [#/Vol] 10*3/uL Normal <0.01 [facility] Comment on above: Order Comment: Speci men Type: BLOOD SPECIMENOrdering Facility: [facility] Address: [address] [place] [address] Performed By: #### 5 8410-2 ####[facility] LABORATORYCLIA [id number] [address] [place] Platelet mean volume (Bld) [Entitic vol] 11.2 fL Normal 9.0-12.7 [facility] Comment on above: Order Comment: Speci men Type: BLOOD SPECIMENOrdering Facility: [facility] Address: [address] [place] [address] Performed By: #### 5 8410-2 ####[facility] LABORATORYCLIA [id number] [place] [id number] [place] Platelets (Bld) [#/Vol] 229 10*3/uL Normal 150-400 [facility] Comment on above: Order Comment: Speci men Type: BLOOD SPECIMENOrdering Facility: [facility] Address: [address] [place] [address] Performed By: #### 5 8410-2 ####[facility] LABORATORYCLIA [id number] [place] [id number] [place] RBC (Bld) [#/Vol] 3.34 10*6/uL Low 4.20-6.00 [facility] Comment on above: Order Comment: Speci men Type: BLOOD SPECIMENOrdering Facility: [facility] Address: [address] [place] [address] Performed By: #### 5 8410-2 ####[facility] LABORATORYCLIA [id number] [place] [id number] [place] WBC (Bld) [#/Vol] 5.51 10*3/uL Normal 3.70-11.00 [facility] Comment on above: Order Comment: Speci men Type: BLOOD SPECIMENOrdering Facility: [facility] Address: [address] [place] [address] Performed By: #### 5 8410-2 ####[facility] LABORATORYCLIA [id number] [place] [id number] [place] CT PANCREAS W IVCONon 2023 CT PANCREAS W IVCON Normal [facility] Magnesium SerPl-mCncon 09-02 Magnesium [Mass/Vol] 1.9 mg/dL Normal 1.7-2.3 [facility] Comment on above: Order Comment: Speci men Type: BLOOD SPECIMENOrdering Facility: [facility] Address: [address] [place] [address] Performed By: #### 1 751-7, 19116-4, 39332-9, 2571-8 ####[facility] LABORATORYCLIA [id number] [place] [address] [place] NUTRITIONon 09-02-2023 NUTRITION Normal [facility] Phosphate SerPl-mCncon 09-02 Phosphate [Mass/Vol] 2.5 mg/dL Low 2.7-4.8 [facility] Comment on above: Order Comment: Speci men Type: BLOOD SPECIMENOrdering Facility: [facility] Address: [address] [place] [address] Performed By: #### 2 777-1 ####[facility] LABORATORYCLIA [id number] [place] [id number] [place] [facility] Triglyceride [Mass/Vol] 70 mg/dL Normal <150 [facility] Comment on above: Order Comment: Speci men Type: BLOOD SPECIMENOrdering Facility: [facility] Address: [address] [place] [address] Result Comment: <150 mg/dL, Normal 150-199 mg/dL, Borderline high 200-499 mg/dL, High>499 mg/dL, Very highReference:1. National Cholesterol Education Program ATP III Guideline At-A-Glance Quick Desk Reference: National Heart, Lung, and Blood Leadore. National Institutes of Health. 2001: NIH Publication No. 01-3305. Performed By: #### 1 751-7, 64412-6, , 2571-03 ####[facility] LABORATORYCLIA [id number] [place] [id number] [place] Triglyceride [Mass/Vol]on FASTING TIME n/a Normal [facility] Comment on above: Order Comment: Speci men Type: BLOOD SPECIMENOrdering Facility: [facility] Address: [address] [place] [address] Performed By: #### 1 751-7, 46108-8, , 2571-03 ####[facility] LABORATORYCLIA [id number] [place] [address] [place] Basic metabolic 2000 panelon 09-01-2023 Anion gap [Moles/Vol] 10 mmol/L Normal 9-18 [facility] Comment on above: Order Comment: Speci men Type: BLOOD SPECIMENOrdering Facility: [facility] Address: [address] [place] [address] Performed By: #### 1 9123-9, 22597-3, 7-1, 72483-7 ####[facility] LABORATORYCLIA [id number] [place] [id number] [place] Calcium [Mass/Vol] 8.4 mg/dL Low 8.5-10.2 [facility] Comment on above: Order Comment: Speci men Type: BLOOD SPECIMENOrdering Facility: [facility] Address: [address] [place] [address] Performed By: #### 1 9123-9, 15379-9, 277-1, 60715-3 ####[facility] LABORATORYCLIA [id number] [place] [address] [place] Chloride [Moles/Vol] 102 mmol/L Normal 97-105 [facility] Comment on above: Order Comment: Speci men Type: BLOOD SPECIMENOrdering Facility: [facility] Address: [place] [address] Performed By: #### 1 9123-9, 23249-6, 2776-, 50205-9 ####[facility]ORYCLIA [id number] [place] [address] [place] CO2 [Moles/Vol] 29 mmol/L Normal 22-30 [facility] Comment on above: Order Comment: Speci men Type: BLOOD SPECIMENOrdering Facility: [facility] Address: [address] [place] [address] Performed By: #### 1 9123-9, 64978-2, 2776-1, 13750-8 ####[facility] LABORATORYCLIA [id number] [place] [id number] [place] Creatinine [Mass/Vol] 0.93 mg/dL Normal 0.73-1.22 [facility] Comment on above: Order Comment: Speci men Type: BLOOD SPECIMENOrdering Facility: [facility] [facility] Address: [address] [id number] Performed By: #### 1 9123-9, 78561-7, 2777-1, 56211-3 ####[facility] LABORATORYCLIA [id number] [place] [id number] [place] Creatinine and Glomerular filtration rate.predicted panel (S/P/Bld) 89 mL/min/1.73m??? Normal >=60 [facility] Comment on above: Order Comment: Arben suarez Type: BLOOD SPECIMENOrdering Facility: [facility] Address: [address] [place] [address] Result Comment: Bailey mated Glomerular Filtration Rate [...] actual GFR. Performed By: #### 1 9123-9, 54426-7, 2777-, 11440-1 ####[facility] LABORATORYCLIA [id number] [place] [id number] [place] Glucose [Mass/Vol] 110 mg/dL High 74-99 [facility] Comment on above: Order Comment: Arben suarez Type: BLOOD SPECIMENOrdering Facility: [facility] Address: [address] [place] [address] Result Comment: The [place] Diabetes [...] 2016.39(Suppl 1). Performed By: #### 1 9123-9, 39664-2, 2777-1, 69133-3 ####[facility] LABORATORYCLIA [id number] [place] [id number] [place] Potassium [Moles/Vol] 3.3 mmol/L Low 3.7-5.1 [facility] Comment on above: Order Comment: Speci men Type: BLOOD SPECIMENOrdering Facility: [facility] Address: [address] [place] [address] Performed By: #### 1 9123-9, 67503-0, 2776-1, 29012-0 ####[facility] LABORATORYCLIA [id number] [place] [id number] [place] Sodium [Moles/Vol] 141 mmol/L Normal 136-144 [facility] Comment on above: Order Comment: Speci men Type: BLOOD SPECIMENOrdering Facility: [facility] Address: [address] [place] [address] Performed By: #### 1 9123-9, 13559-5, 2776-1, 14594-3 ####[facility] LABORATORYCLIA [id number] [place] [id number] [place] Urea nitrogen [Mass/Vol] 27 mg/dL High 9-24 [facility] Comment on above: Order Comment: Speci men Type: BLOOD SPECIMENOrdering Facility: [facility] Address: [address] [place] [address] Performed By: #### 1 9123-9, 34240-5, 2776-1, 39492-1 ####[facility] LABORATORYCLIA [id number] [place] [id number] [place] CBC W Auto Differential pane l (Bld)on 09-01-2023 Basophils (Bld) [#/Vol] 0.04 10*3/uL Normal <0.11 [facility] Comment on above: Order Comment: Speci men Type: BLOOD SPECIMENOrdering Facility: [facility] Address: [address] [place] [address] Performed By: #### 5 7021-8 ####[facility] LABORATORYCLIA [id number] [place] [address] [place] Basophils/100 WBC (Bld) 0.8 % Normal [facility] Comment on above: Order Comment: Speci men Type: BLOOD SPECIMENOrdering Facility: [facility] Address: [address] [place] [address] Performed By: #### 5 7021-8 ####[facility] LABORATORYCLIA [id number] [place] [address] [place] Differential cell count method Nom (Bld) Auto Normal [facility] Comment on above: Order Comment: Speci men Type: BLOOD SPECIMENOrdering Facility: [facility] Address: [address] [place] [address] Performed By: #### 5 7021-8 ####[facility] LABORATORYCLIA [id number] [place] [address] [place] Eosinophils (Bld) [#/Vol] 0.17 10*3/uL Normal <0.46 [facility] Comment on above: Order Comment: Speci men Type: BLOOD SPECIMENOrdering Facility: [facility] Address: [address] [place] [address] Performed By: #### 5 7021-8 ####[facility] LABORATORYCLIA [id number] [address] [place] Eosinophils/100 WBC (Bld) 3.5 % Normal [facility] Comment on above: Order Comment: Speci men Type: BLOOD SPECIMENOrdering Facility: [facility] Address: [address] [place] [address] Performed By: #### 5 7021-8 ####[facility] LABORATORYCLIA [id number] [place] [address] [place] Erythrocyte distribution width (RBC) [Ratio] 12.5 % Normal 11.5-15.0 [facility] Comment on above: Order Comment: Speci men Type: BLOOD SPECIMENOrdering Facility: [facility] Address: [address] [place] [address] Performed By: #### 5 7021-8 ####[facility] LABORATORYCLIA [id number] [place] [address] [place] Hematocrit (Bld) [Volume fraction] 28.8 % Low 39.0-51.0 [facility] Comment on above: Order Comment: Speci men Type: BLOOD SPECIMENOrdering Facility: [facility] Address: [address] [place] [address] Performed By: #### 5 7021-8 ####[facility] LABORATORYCLIA [id number] [place] [id number] [place] Hemoglobin (Bld) [Mass/Vol] 9.9 g/dL Low 13.0-17.0 [facility] Comment on above: Order Comment: Speci men Type: BLOOD SPECIMENOrdering Facility: [facility] Address: [address] [place] [address] Performed By: #### 5 7021-8 ####[facility] LABORATORYCLIA [id number] [address] [place] Immature granulocytes (Bld) [#/Vol] 10*3/uL Normal <0.10 [facility] Comment on above: Order Comment: Speci men Type: BLOOD SPECIMENOrdering Facility: [facility] Address: [address] [place] [address] Performed By: #### 5 7021-8 ####[facility] LABORATORYCLIA [id number] [address] [place] Immature granulocytes/100 WBC (Bld) 0.4 % Normal [facility] Comment on above: Order Comment: Speci men Type: BLOOD SPECIMENOrdering Facility: [facility] Address: [address] [place] [address] Performed By: #### 5 7021-8 ####[facility] LABORATORYCLIA [id number] [place] [id number] [place] Lymphocytes (Bld) [#/Vol] 1.10 10*3/uL Normal 1.00-4.00 [facility] Comment on above: Order Comment: Speci men Type: BLOOD SPECIMENOrdering Facility: [facility] Address: [address] [place] [address] Performed By: #### 5 7021-8 ####[facility] LABORATORYCLIA [id number] [place] [address] [place] Lymphocytes/100 WBC (Bld) 22.7 % Normal [facility] Comment on above: Order Comment: Speci men Type: BLOOD SPECIMENOrdering Facility: [facility] Address: [address] [place] [address] Performed By: #### 5 7021-8 ####[facility] LABORATORYCLIA [id number] [place] [address] [place] MCH (RBC) [Entitic mass] 29.6 pg Normal 26.0-34.0 [facility] Comment on above: Order Comment: Speci men Type: BLOOD SPECIMENOrdering Facility: [facility] Address: [address] [place] [address] Performed By: #### 5 7021-8 ####[facility] LABORATORYCLIA [id number] [place] [address] [place] MCHC (RBC) [Mass/Vol] 34.4 g/dL Normal 30.5-36.0 [facility] Comment on above: Order Comment: Speci men Type: BLOOD SPECIMENOrdering Facility: [facility] Address: [address] [place] [address] Performed By: #### 5 7021-8 ####[facility] LABORATORYCLIA [id number] [address] [place] MCV (RBC) [Entitic vol] 86.0 fL Normal 80.0-100.0 [facility] Comment on above: Order Comment: Speci men Type: BLOOD SPECIMENOrdering Facility: [facility] Address: [address] [place] [address] Performed By: #### 5 7021-8 ####[facility] LABORATORYCLIA [id number] [place] [address] [place] Monocytes (Bld) [#/Vol] 0.86 10*3/uL Normal <0.87 [facility] Comment on above: Order Comment: Speci men Type: BLOOD SPECIMENOrdering Facility: [facility] Address: [address] [place] [address] Performed By: #### 5 7021-8 ####[facility] LABORATORYCLIA [id number] [place] [id number] [place] Monocytes/100 WBC (Bld) 17.8 % Normal [facility] Comment on above: Order Comment: Speci men Type: BLOOD SPECIMENOrdering Facility: [facility] Address: [address] [place] [address] Performed By: #### 5 7021-8 ####[facility] LABORATORYCLIA [id number] [place] [id number] [place] Neutrophils (Bld) [#/Vol] 2.65 10*3/uL Normal 1.45-7.50 [facility] Comment on above: Order Comment: Speci men Type: BLOOD SPECIMENOrdering Facility: [facility] Address: [address] [place] [address] Performed By: #### 5 7021-8 ####[facility] LABORATORYCLIA [id number] [place] [id number] [place] Neutrophils/100 WBC (Bld) 54.8 % Normal [facility] Comment on above: Order Comment: Speci men Type: BLOOD SPECIMENOrdering Facility: [facility] Address: [address] [place] [address] Performed By: #### 5 7021-8 ####[facility] LABORATORYCLIA [id number] [place] [id number] [place] Nucleated RBC (Bld) [#/Vol] 10*3/uL Normal <0.01 [facility] Comment on above: Order Comment: Speci men Type: BLOOD SPECIMENOrdering Facility: [facility] Address: [address] [place] [address] Performed By: #### 5 7021-8 ####[facility] LABORATORYCLIA [id number] [place] [id number] [place] Nucleated RBC/100 WBC (Bld) [Ratio] 0.0 /100 WBC Normal [facility] Comment on above: Order Comment: Speci men Type: BLOOD SPECIMENOrdering Facility: [facility] Address: [address] [place] [address] Performed By: #### 5 7021-8 ####[facility] LABORATORYCLIA [id number] [place] [id number] [place] Platelet mean volume (Bld) [Entitic vol] 11.3 fL Normal 9.0-12.7 [facility] Comment on above: Order Comment: Speci men Type: BLOOD SPECIMENOrdering Facility: [facility] Address: [address] [place] [address] Performed By: #### 5 7021-8 ####[facility] LABORATORYCLIA [id number] [place] [id number] [place] Platelets (Bld) [#/Vol] 238 10*3/uL Normal 150-400 [facility] Comment on above: Order Comment: Speci men Type: BLOOD SPECIMENOrdering Facility: [facility] Address: [address] [place] [address] Performed By: #### 5 7021-8 ####[facility] LABORATORYCLIA [id number] [place] [id number] [place] RBC (Bld) [#/Vol] 3.35 10*6/uL Low 4.20-6.00 [facility] Comment on above: Order Comment: Speci men Type: BLOOD SPECIMENOrdering Facility: [facility] Address: [address] [place] [address] Performed By: #### 5 7021-8 ####[facility] LABORATORYCLIA [id number] [place] [id number] [place] WBC (Bld) [#/Vol] 4.84 10*3/uL Normal 3.70-11.00 [facility] Comment on above: Order Comment: Speci men Type: BLOOD SPECIMENOrdering Facility: [facility] Address: [address] [place] [address] Performed By: #### 5 7021-8 ####[facility] LABORATORYCLIA [id number] [place] [id number] [place] Hepatic function 2000 panelo n 09-01-2023 Albumin [Mass/Vol] 2.8 g/dL Low 3.9-4.9 [facility] Comment on above: Order Comment: Speci men Type: BLOOD SPECIMENOrdering Facility: [facility] Address: [address] [place] [address] Performed By: #### 1 9123-9, 34872-0, 7-1, 71030-4 ####[facility] LABORATORYCLIA [id number] [place] [address] [place] ALP [Catalytic activity/Vol] 107 U/L Normal 38-113 [facility] Comment on above: Order Comment: Speci men Type: BLOOD SPECIMENOrdering Facility: [facility] Address: [address] [place] [address] Performed By: #### 1 9123-9, 89831-0, 2776-1, 38778-3 ####[facility]ORATORYCLIA [id number] [place] [address] [place] ALT [Catalytic activity/Vol] 21 U/L Normal 10-54 [facility] Comment on above: Order Comment: Speci men Type: BLOOD SPECIMENOrdering Facility: [facility] Address: [address] [place] [address] Performed By: #### 1 9123-9, 89481-6, 2776-1, 57196-7 ####[facility] LABORATORYCLIA [id number] [place] [id number] [place] AST [Catalytic activity/Vol] 14 U/L Normal 14-40 [facility] Comment on above: Order Comment: Speci men Type: BLOOD SPECIMENOrdering Facility: [facility] Address: [address] [place] [address] Performed By: #### 1 9123-9, 47877-6, 2776-1, 02774-8 ####[facility] LABORATORYCLIA [id number] [place] [id number] [place] Bilirubin [Mass/Vol] 0.4 mg/dL Normal 0.2-1.3 [facility] Comment on above: Order Comment: Speci men Type: BLOOD SPECIMENOrdering Facility: [facility] Address: [address] [place] [address] Performed By: #### 1 9123-9, 22477-3, 2777-1, 90791-9 ####[facility] LABORATORYCLIA [id number] [place] [id number] [place] Bilirubin.conjugated [Mass/Vol] mg/dL Normal <0.2 [facility] Comment on above: Order Comment: Speci men Type: BLOOD SPECIMENOrdering Facility: [facility] Address: [address] [place] [address] Performed By: #### 1 9123-9, 80741-4, 277-1, 91928-9 ####[facility] LABORATORYCLIA [id number] [place] [id number] [place] Protein [Mass/Vol] 5.4 g/dL Low 6.3-8.0 [facility] Comment on above: Order Comment: Speci men Type: BLOOD SPECIMENOrdering Facility: [facility] Address: [address] [place] [address] Performed By: #### 1 9123-9, 46138-1, 2777-, 64729-0 ####[facility] LABORATORYCLIA [id number] [place] [id number] [place] Magnesium SerPl-ncon 09-01 Magnesium [Mass/Vol] 1.8 mg/dL Normal 1.7-2.3 [facility] Comment on above: Order Comment: Speci men Type: BLOOD SPECIMENOrdering Facility: [facility] Address: [address] [place] [address] Performed By: #### 1 9123-9, 04833-0, 27702-22, 04783-9 ####[facility] LABORATORYCLIA [id number] [place] [id number] [place] NURSING PROGon 09-01-2023 NURSING PROG Normal [facility] NUTRITIONon 09-01-2023 NUTRITION Normal [facility] Phosphate SerPl-mCncon 09-01 Phosphate [Mass/Vol] 2.8 mg/dL Normal 2.7-4.8 [facility] Comment on above: Order Comment: Speci men Type: BLOOD SPECIMENOrdering Facility: [facility] Address: [address] [id number] Performed By: #### 1 9123-9, 84119-9, 2777-1, 88908-8 ####[facility] LABORATORYCLIA [id number] [place] [id number] [place] Albumin SerPl-mCncon 024 Albumin [Mass/Vol] 2.9 g/dL Low 3.9-4.9 [facility] Comment on above: Order Comment: Speci men Type: BLOOD SPECIMENOrdering Facility: [facility] Address: [address] [place] [address] Performed By: #### 2 777-1, 31599-5, 1751-02, ####[facility] LABORATORYCLIA [id number] [place] [id number] [place] Basic metabolic 2000 panelon 08-31-2023 Anion gap [Moles/Vol] 10 mmol/L Normal 9-18 [facility] Comment on above: Order Comment: Speci men Type: BLOOD SPECIMENOrdering Facility: [facility] Address: [address] [id number] Performed By: #### 2 777-1, 29778-0, 1751-02, ####[facility] LABORATORYCLIA [id number] [place] [id number] [place] Calcium [Mass/Vol] 8.3 mg/dL Low 8.5-10.2 [facility] Comment on above: Order Comment: Speci men Type: BLOOD SPECIMENOrdering Facility: [facility] Address: [address] [id number] Performed By: #### 2 777-1, 59202-7, 1751-02, ####[facility] LABORATORYCLIA [id number] [place] [id number] [place] Chloride [Moles/Vol] 101 mmol/L Normal 97-105 [facility] Comment on above: Order Comment: Speci men Type: BLOOD SPECIMENOrdering Facility: [facility] Address: [address] [place] [address] Performed By: #### 2 777-1, 46311-5, 1751-02, ####[facility] LABORATORYCLIA [id number] [place] [address] [place] CO2 [Moles/Vol] 23 mmol/L Normal 22-30 [facility] Comment on above: Order Comment: Speci men Type: BLOOD SPECIMENOrdering Facility: [facility] Address: [address] [address] Performed By: #### 2 777-1, 43525-0, 1751-02, ####[facility] LABORATORYCLIA [id number] [place] [id number] [place] Creatinine [Mass/Vol] 1.22 mg/dL Normal 0.73-1.22 [facility] Comment on above: Order Comment: Speci men Type: BLOOD SPECIMENOrdering Facility: [facility] Address: [address] [place] [address] Performed By: #### 2 777-1, 42938-9, 1751-02, ####[facility] LABORATORYCLIA [id number] [place] [id number] [place] Creatinine and Glomerular filtration rate.predicted panel (S/P/Bld) 65 mL/min/1.73m??? Normal >=60 [facility] Comment on above: Order Comment: Speci men Type: BLOOD SPECIMENOrdering Facility: [facility] Address: [place] [facility] [place] [address] Result Comment: Bailey mated Glomerular Filtration Rate [...] actual GFR. Performed By: #### 2 777-1, 67636-2, 1751-02, ####[facility] LABORATORYCLIA [id number] [place] [address] [place] Glucose [Mass/Vol] 100 mg/dL High 74-99 [facility] Comment on above: Order Comment: Speci men Type: BLOOD SPECIMENOrdering Facility: [facility] Address: [place] [address] Result Comment: The [place] Diabetes [...] 2016.39(Suppl 1). Performed By: #### 2 777-1, 57121-9, 1751-02, ####[facility] LABORATORYCLIA [id number] [place] [id number] [place] Potassium [Moles/Vol] 3.5 mmol/L Low 3.7-5.1 [facility] Comment on above: Order Comment: Arben daniela Type: BLOOD SPECIMENOrdering Facility: [facility] Address: [address] [place] [id number] Performed By: #### 2 777-1, 08288-4, 1751-02, ####[facility] LABORATORYCLIA [id number] [place] [id number] [place] Sodium [Moles/Vol] 134 mmol/L Low 136-144 [facility] Comment on above: Order Comment: Speci men Type: BLOOD SPECIMENOrdering Facility: [facility] Address: [place] [address] Performed By: #### 2 777-1, 60426-0, 1751-02, ####[facility] LABORATORYCLIA [id number] [place] [address] [place] Urea nitrogen [Mass/Vol] 39 mg/dL High 9-24 [facility] Comment on above: Order Comment: Speci men Type: BLOOD SPECIMENOrdering Facility: [facility] Address: [address] [place] [address] Performed By: #### 2 777-1, 58567-3, 1751-02, ####[facility] LABORATORYCLIA [id number] [place] [address] [place] CASE MANAGEMon 08-31-2023 CASE MANAGEM Normal [facility] Magnesium SerPl-mCncon 08-31 Magnesium [Mass/Vol] 1.7 mg/dL Normal 1.7-2.3 [facility] Comment on above: Order Comment: Speci men Type: BLOOD SPECIMENOrdering Facility: [facility] Address: [address] [place] [address] Performed By: #### 2 777-1, 28954-3, 1751-02, ####[facility] LABORATORYCLIA [id number] [place] [id number] [place] Phosphate SerPl-mCncon 08-31 Phosphate [Mass/Vol] 2.6 mg/dL Low 2.7-4.8 [facility] Comment on above: Order Comment: Speci men Type: BLOOD SPECIMENOrdering Facility: [facility] Address: [address] [place], [place] [address] Performed By: #### 2 777-1, 04894-9, 1751-02, ####[facility] LABORATORYCLIA [id number] [place] [id number] [place] Albumin SerPl-mCncon 024 Albumin [Mass/Vol] 3.1 g/dL Low 3.9-4.9 [facility] Comment on above: Order Comment: Speci men Type: BLOOD SPECIMENOrdering Facility: [facility] Address: [address] [place] [address] Performed By: #### 2 4321-2, 31489-9, 1751-02, 2776-08 ####[facility] LABORATORYCLIA [id number] [place] [address] [place] Basic metabolic 2000 panelon 08-30-2023 Anion gap [Moles/Vol] 11 mmol/L Normal 9-18 [facility] Comment on above: Order Comment: Speci men Type: BLOOD SPECIMENOrdering Facility: [facility] Address: [address] [place] [address] Performed By: #### 2 4321-2, , 1751-02, 2776-08 ####[facility] LABORATORYCLIA [id number] [place] [address] [place] Calcium [Mass/Vol] 8.1 mg/dL Low 8.5-10.2 [facility] Comment on above: Order Comment: Speci men Type: BLOOD SPECIMENOrdering Facility: [facility] Address: [address] [place] [address] Performed By: #### 2 4321-2, , 1751-02, 2776-08 ####[facility] LABORATORYCLIA [id number] [place] [id number] [place] Chloride [Moles/Vol] 106 mmol/L High 97-105 [facility] Comment on above: Order Comment: Speci men Type: BLOOD SPECIMENOrdering Facility: [facility] Address: [address] [place] [address] Performed By: #### 2 4321-2, , 1751-02, 2776-08 ####[facility] LABORATORYCLIA [id number] [place] [id number] [place] CO2 [Moles/Vol] 17 mmol/L Low 22-30 [facility] Comment on above: Order Comment: Speci men Type: BLOOD SPECIMENOrdering Facility: [facility] Address: [address] [place] [address] Performed By: #### 2 4321-2, , 1751-02, 2776- ####[facility] LABORATORYCLIA [id number] [place] [address] [place] Creatinine [Mass/Vol] 1.39 mg/dL High 0.73-1.22 [facility] Comment on above: Order Comment: Arben suarez Type: BLOOD SPECIMENOrdering Facility: [facility] Address: [address] [place] [address] Performed By: #### 2 4321-2, 05935-7, 1751-02, 2776-08 ####[facility] LABORATORYCLIA [id number] [place] [id number] [place] Creatinine and Glomerular filtration rate.predicted panel (S/P/Bld) 55 mL/min/1.73m??? Low >=60 [facility] Comment on above: Order Comment: Arben suarez Type: BLOOD SPECIMENOrdering Facility: [facility] Address: [address] [place] [address] Result Comment: Bailey mated Glomerular Filtration Rate [...] actual GFR. Performed By: #### 2 4321-2, 72636-5, 1751-02, 2776-08 ####[facility] LABORATORYCLIA [id number] [place] [id number] [place] Glucose [Mass/Vol] 107 mg/dL High 74-99 [facility] Comment on above: Order Comment: Arben suarez Type: BLOOD SPECIMENOrdering Facility: [facility] Address: [address] [place] [address] Result Comment: [facility] [place] Diabetes [...] 2 4321-2, , 1751-02, 2776-08 ####[facility]ORATORYCLIA [id number] [place] [id number] [place] Potassium [Moles/Vol] 3.6 mmol/L Low 3.7-5.1 [facility] Comment on above: Order Comment: Speci men Type: BLOOD SPECIMENOrdering Facility: [facility] Address: [address] [place] [address] Performed By: #### 2 4321-2, , 1751-02, 2776-08 ####[facility] LABORATORYCLIA [id number] [place] [id number] [place] Sodium [Moles/Vol] 134 mmol/L Low 136-144 [facility] Comment on above: Order Comment: Speci daniela Type: BLOOD SPECIMENOrdering Facility: [facility] Address: [address] [place] [address] Performed By: #### 2 4321-2, , 1751-02, 2776-08 ####[facility] LABORATORYCLIA [id number] [place] [id number] [place] [place] Urea nitrogen [Mass/Vol] 46 mg/dL High 9-24 [facility] Comment on above: Order Comment: Speci men Type: BLOOD SPECIMENOrdering Facility: [facility] Address: [address] [place] [address] Performed By: #### 2 4321-2, , 1751-02, 2776-08 ####[facility] LABORATORYCLIA [id number] [place] [id number] [place] CBC panel Auto (Bld)on 08-30 Erythrocyte distribution width (RBC) [Ratio] 12.4 % Normal 11.5-15.0 [facility] Comment on above: Order Comment: Speci men Type: BLOOD SPECIMENOrdering Facility: [facility] Address: [address] [place] [address] Performed By: #### 5 8410-2 ####[facility] LABORATORYCLIA [id number] [place] [address] [place] Hematocrit (Bld) [Volume fraction] 32.1 % Low 39.0-51.0 [facility] Comment on above: Order Comment: Speci men Type: BLOOD SPECIMENOrdering Facility: [facility] Address: [address] [place] [address] Performed By: #### 5 8410-2 ####[facility] LABORATORYCLIA [id number] [place] [address] [place] Hemoglobin (Bld) [Mass/Vol] 11.0 g/dL Low 13.0-17.0 [facility] Comment on above: Order Comment: Speci men Type: BLOOD SPECIMENOrdering Facility: [facility] Address: [address] [place] [address] Performed By: #### 5 8410-2 ####[facility] LABORATORYCLIA [id number] [place] [address] [place] MCH (RBC) [Entitic mass] 29.3 pg Normal 26.0-34.0 [facility] Comment on above: Order Comment: Speci men Type: BLOOD SPECIMENOrdering Facility: [facility] Address: [address] [place] [address] Performed By: #### 5 8410-2 ####[facility] LABORATORYCLIA [id number] [place] [address] [place] MCHC (RBC) [Mass/Vol] 34.3 g/dL Normal 30.5-36.0 [facility] Comment on above: Order Comment: Speci men Type: BLOOD SPECIMENOrdering Facility: [facility] Address: [address] [place] [address] Performed By: #### 5 8410-2 ####[facility] LABORATORYCLIA [id number] [address] [place] MCV (RBC) [Entitic vol] 85.6 fL Normal 80.0-100.0 [facility] Comment on above: Order Comment: Speci men Type: BLOOD SPECIMENOrdering Facility: [facility] Address: [address] [place] [address] Performed By: #### 5 8410-2 ####[facility] LABORATORYCLIA [id number] [place] [id number] [place] Nucleated RBC (Bld) [#/Vol] 10*3/uL Normal <0.01 [facility] Comment on above: Order Comment: Speci men Type: BLOOD SPECIMENOrdering Facility: [facility] Address: [address] [place] [address] Performed By: #### 5 8410-2 ####[facility] LABORATORYCLIA [id number] [place] [id number] [place] Platelet mean volume (Bld) [Entitic vol] 10.6 fL Normal 9.0-12.7 [facility] Comment on above: Order Comment: Speci men Type: BLOOD SPECIMENOrdering Facility: [facility] Address: [address] [place] [address] Performed By: #### 5 8410-2 ####[facility]ORATORYCLIA [id number] [place] [id number] [place] Platelets (Bld) [#/Vol] 306 10*3/uL Normal 150-400 [facility] Comment on above: Order Comment: Speci men Type: BLOOD SPECIMENOrdering Facility: [facility] Address: [address] [place] [address] Performed By: #### 5 8410-2 ####[facility] LABORATORYCLIA [id number] [place] [id number] [place] RBC (Bld) [#/Vol] 3.75 10*6/uL Low 4.20-6.00 [facility] Comment on above: Order Comment: Speci men Type: BLOOD SPECIMENOrdering Facility: [facility] Address: [address] [place] [address] Performed By: #### 5 8410-2 ####[facility] LABORATORYCLIA [id number] [place] [id number] [place] WBC (Bld) [#/Vol] 6.84 10*3/uL Normal 3.70-11.00 [facility] Comment on above: Order Comment: Speci men Type: BLOOD SPECIMENOrdering Facility: [facility] Address: [address] [place] [address] Performed By: #### 5 8410-2 ####[facility] LABORATORYCLIA [id number] [place] [id number] [place] CONSULT PROGon 08-30-2023 CONSULT PROG Normal [facility] Lactate (Bld) [Moles/Vol]on 08-30-2023 Lactate [Moles/Vol] 0.6 mmol/L Normal 0.5-2.2 [facility] Comment on above: Order Comment: Speci men Type: BLOOD SPECIMENOrdering Facility: [facility] Address: [address] [place] [address] Performed By: #### 3 2693-4 ####[facility]ORATORYCLIA [id number] [place] [id number] [place] Magnesium SerPl-mCncon 08-30 Magnesium [Mass/Vol] 2.0 mg/dL Normal 1.7-2.3 [facility] Comment on above: Order Comment: Speci men Type: BLOOD SPECIMENOrdering Facility: [facility] Address: [address] [place] [address] Performed By: #### 2 4321-2, , 1751-02, 2776-08 ####[facility] LABORATORYCLIA [id number] [place] [id number] [place] NURSING PROGon 08-30-2023 NURSING PROG Normal [facility] NUTRITIONon 08-30-2023 NUTRITION Normal [facility] Phosphate SerPl-mCncon 08-30 Phosphate [Mass/Vol] 3.1 mg/dL Normal 2.7-4.8 [facility] Comment on above: Order Comment: Speci men Type: BLOOD SPECIMENOrdering Facility: [facility] Address: [address] [place] [address] Performed By: #### 2 4321-2, 57550-4, 1751-7, 2777-1 ####[facility]ORATORYCLIA [id number] [place] [address] [place] Basic metabolic 2000 panelon 08-29-2023 Anion gap [Moles/Vol] 18 mmol/L Normal 9-18 [facility] Comment on above: Order Comment: Speci men Type: BLOOD SPECIMENOrdering Facility: [facility] Address: [address] [place] [address] Performed By: #### 2 4321-2, 2777-1, 66094-2, ####[facility]ORATORYCLIA [id number] [place] [address] [place] Calcium [Mass/Vol] 9.0 mg/dL Normal 8.5-10.2 [facility] Comment on above: Order Comment: Speci men Type: BLOOD SPECIMENOrdering Facility: [facility] Address: [address] [place] [address] Performed By: #### 2 4321-2, 2777-1, 98095-2, ####[facility]ORATORYCLIA [id number] [place] [id number] [place] Chloride [Moles/Vol] 107 mmol/L High 97-105 [facility] Comment on above: Order Comment: Speci men Type: BLOOD SPECIMENOrdering Facility: [facility] Address: [address] [place] [address] Performed By: #### 2 4321-2, 2777-1, 07870-0, ####[facility]ORATORYCLIA [id number] [place] [address] [place] CO2 [Moles/Vol] 8 mmol/L Low 22-30 [facility] Comment on above: Order Comment: Speci men Type: BLOOD SPECIMENOrdering Facility: [facility] Address: [address] [place] [address] Performed By: #### 2 4321-2, 2777-1, 76549-3, ####[facility]ORATORYCLIA [id number] [place] [address] [place] Creatinine [Mass/Vol] 1.98 mg/dL High 0.73-1.22 [facility] Comment on above: Order Comment: Arben suarez Type: BLOOD SPECIMENOrdering Facility: [facility] Address: [address] [place] [address] Performed By: #### 2 4321-2, 2777-1, 41811-3, 63794-4 ####[facility]ORATORYCLIA [id number] [place] [address] [place] Creatinine and Glomerular filtration rate.predicted panel (S/P/Bld) 36 mL/min/1.73m??? Low >=60 [facility] Comment on above: Order Comment: Arben suarez Type: BLOOD SPECIMENOrdering Facility: [facility] Address: [address] [place] [address] Result Comment: Bailey mated Glomerular Filtration Rate [...] GFR. Performed By: #### 2 4321-2, 2777-1, 50893-6, 64105-0 ####[facility]ORATORYCLIA [id number] [place] [id number] [place] Glucose [Mass/Vol] 134 mg/dL High 74-99 [facility] Comment on above: Order Comment: Arben suarez Type: BLOOD SPECIMENOrdering Facility: [facility] Address: [address] [place] [address] Result Comment: The [place] Diabetes [...] 1). Performed By: #### 2 4321-2, 2777-1, 04031-1, ####[facility]ORATORYCLIA [id number] [place] [id number] [place] Potassium [Moles/Vol] 4.9 mmol/L Normal 3.7-5.1 [facility] Comment on above: Order Comment: Speci men Type: BLOOD SPECIMENOrdering Facility: [facility] Address: [address] [place] [address] Performed By: #### 2 4321-2, 2777-1, 58465-4, ####[facility]ORATORYCLIA [id number] [place] [id number] [place] Sodium [Moles/Vol] 133 mmol/L Low 136-144 [facility] Comment on above: Order Comment: Speci men Type: BLOOD SPECIMENOrdering Facility: [facility] Address: [address] [place] [address] Performed By: #### 2 4321-2, 2777-1, 73677-4, ####[facility]ORATORYCLIA [id number] [place] [id number] [place] Urea nitrogen [Mass/Vol] 68 mg/dL High 9-24 [facility] Comment on above: Order Comment: Speci men Type: BLOOD SPECIMENOrdering Facility: [facility] Address: [address] [place] [address] Performed By: #### 2 4321-2, 2777-1, 96975-2, ####[facility]ORATORYCLIA [id number] [place] [id number] [place] CBC panel Auto (Bld)on 08-29 Erythrocyte distribution width (RBC) [Ratio] 12.2 % Normal 11.5-15.0 [facility] Comment on above: Order Comment: Speci men Type: BLOOD SPECIMENOrdering Facility: [facility] Address: [address] [place] [address] Performed By: #### 5 8410-2 ####[facility] LABORATORYCLIA [id number] [address] [place] Hematocrit (Bld) [Volume fraction] 37.9 % Low 39.0-51.0 [facility] Comment on above: Order Comment: Speci men Type: BLOOD SPECIMENOrdering Facility: [facility] Address: [address] [place] [address] Performed By: #### 5 8410-2 ####[facility] LABORATORYCLIA [id number] [address] [place] Hemoglobin (Bld) [Mass/Vol] 12.9 g/dL Low 13.0-17.0 [facility] Comment on above: Order Comment: Speci men Type: BLOOD SPECIMENOrdering Facility: [facility] Address: [address] [place] [address] Performed By: #### 5 8410-2 ####[facility] LABORATORYCLIA [id number] [address] [place] MCH (RBC) [Entitic mass] 29.7 pg Normal 26.0-34.0 [facility] Comment on above: Order Comment: Speci men Type: BLOOD SPECIMENOrdering Facility: [facility] Address: [address] [place] [address] Performed By: #### 5 8410-2 ####[facility] LABORATORYCLIA [id number] [address] [place] MCHC (RBC) [Mass/Vol] 34.0 g/dL Normal 30.5-36.0 [facility] Comment on above: Order Comment: Speci men Type: BLOOD SPECIMENOrdering Facility: [facility] Address: [address] [place] [address] Performed By: #### 5 8410-2 ####[facility] LABORATORYCLIA [id number] [address] [place] MCV (RBC) [Entitic vol] 87.3 fL Normal 80.0-100.0 [facility] Comment on above: Order Comment: Speci men Type: BLOOD SPECIMENOrdering Facility: [facility] Address: [address] [place] [address] Performed By: #### 5 8410-2 ####[facility] LABORATORYCLIA [id number] [place] [id number] [place] Nucleated RBC (Bld) [#/Vol] 10*3/uL Normal <0.01 [facility] Comment on above: Order Comment: Speci men Type: BLOOD SPECIMENOrdering Facility: [facility] Address: [address] [place] [address] Performed By: #### 5 8410-2 ####[facility] LABORATORYCLIA [id number] [place] [address] [place] Platelet mean volume (Bld) [Entitic vol] 10.5 fL Normal 9.0-12.7 [facility] Comment on above: Order Comment: Speci men Type: BLOOD SPECIMENOrdering Facility: [facility] Address: [address] [place] [address] Performed By: #### 5 8410-2 ####[facility] LABORATORYCLIA [id number] [place] [address] [place] Platelets (Bld) [#/Vol] 356 10*3/uL Normal 150-400 [facility] Comment on above: Order Comment: Speci men Type: BLOOD SPECIMENOrdering Facility: [facility] Address: [address] [place] [address] Performed By: #### 5 8410-2 ####[facility] LABORATORYCLIA [id number] [place] [id number] [place] RBC (Bld) [#/Vol] 4.34 10*6/uL Normal 4.20-6.00 [facility] Comment on above: Order Comment: Speci men Type: BLOOD SPECIMENOrdering Facility: [facility] Address: [address] [place] [address] Performed By: #### 5 8410-2 ####[facility] LABORATORYCLIA [id number] [place] [address] [place] WBC (Bld) [#/Vol] 6.11 10*3/uL Normal 3.70-11.00 [facility] Comment on above: Order Comment: Speci men Type: BLOOD SPECIMENOrdering Facility: [facility] Address: [address] [place] [address] Performed By: #### 5 8410-2 ####[facility] LABORATORYCLIA [id number] [place] [id number] [place] HIGH SENSITIVITY TROPONIN T (THIRD) 3 HRS AFTER INITIALon 08-29-2023 Troponin T.cardiac High sensitivity method [Mass/Vol] 32 ng/L High <12 [facility] Comment on above: Order Comment: Speci men Type: BLOOD SPECIMENOrdering Facility: [facility] Address: [address] [place] [address] Result Comment: When assessing risk for acute [...] 30 day MACE. Performed By: #### L [id number] ####[facility] LABORATORYCLIA [id number] [place] [id number] [place] Iron and Iron binding capaci ty panelon 08-29-2023 Iron [Mass/Vol] 170 ug/dL Normal 41-186 [facility] Comment on above: Order Comment: Speci men Type: BLOOD SPECIMENOrdering Facility: [facility] Address: [address] [place] [address] Performed By: #### 2 4321-2, 2777-1, 33649-0, 28850-4 ####[facility] LABORATORYCLIA [id number] [place] [id number] [place] Iron binding capacity [Mass/Vol] 331 ug/dL Normal 232-386 [facility] Comment on above: Order Comment: Speci men Type: BLOOD SPECIMENOrdering Facility: [facility] Address: [address] [place] [address] Performed By: #### 2 4321-2, 2777-1, 69119-6, 42843-3 ####[facility] LABORATORYCLIA [id number] [place] [address] [place] Iron/TIBC [Molar ratio] 51.4 % Normal 20.0-55.0 [facility] Comment on above: Order Comment: Speci men Type: BLOOD SPECIMENOrdering Facility: [facility] Address: [address] [place] [address] Performed By: #### 2 4321-2, 2777-1, 66031-6, 27522-8 ####[facility] LABORATORYCLIA [id number] [place] [id number] [place] Lactate (Bld) [Moles/Vol]on 08-29-2023 Lactate [Moles/Vol] 1.1 mmol/L Normal 0.5-2.2 [facility] Comment on above: Order Comment: Speci men Type: BLOOD SPECIMENOrdering Facility: [facility] Address: [address] [place] [id number] Performed By: #### 3 2693-4 ####[facility] LABORATORYCLIA [id number] [place] [id number] [place] Magnesium SerPl-mCncon 08-29 Magnesium [Mass/Vol] 2.6 mg/dL High 1.7-2.3 [facility] Comment on above: Order Comment: Speci men Type: BLOOD SPECIMENOrdering Facility: [facility] Address: [address] [place] [address] Performed By: #### 2 4321-2, 2777-1, 00820-8, 88026-7 ####[facility]ATORYCLIA [id number] [place] [id number] [place] NURSING PROGon 08-29-2023 NURSING PROG Normal [facility] NUTRITIONon 08-29-2023 NUTRITION Normal [facility] NUTRITION Normal [facility] PT EDon 08-29-2023 PT ED Normal [facility] Phosphate SerPl-mCncon 08-29 Phosphate [Mass/Vol] 4.7 mg/dL Normal 2.7-4.8 [facility] Comment on above: Order Comment: Speci men Type: BLOOD SPECIMENOrdering Facility: [facility] Address: [address] [place] [address] Performed By: #### 2 4321-2, 2777-1, 46769-9, 44833-3 ####[facility]ORATORYCLIA [id number] [place] [id number] [place] Prealb SerPl-mCncon 08-29-19 24 Prealbumin [Mass/Vol] 26 mg/dL Normal 17-36 [facility] Comment on above: Order Comment: Speci men Type: BLOOD SPECIMENOrdering Facility: [facility] Address: [address] [place] [address] Performed By: #### 1 4338-8, 3034-6 ####[facility] LABCLIA [id number] [place] [address] [place] Transferrin SerPl-mCncon Transferrin [Mass/Vol] 271 mg/dL Normal 200-360 [facility] Comment on above: Order Comment: Speci men Type: BLOOD SPECIMENOrdering Facility: [facility] Address: [address] [place] [address] Performed By: #### 1 4338-8, 3034-6 ####[facility] LABCLIA [id number] [place] [address] [place] Urinalysis complete panel (U )on 08-29-2023 Bacteria LM.HPF (Urine sed) [#/Area] Rare Abnormal None Seen [facility] Comment on above: Order Comment: Speci men Type: URINE SPECIMENOrdering Facility: [facility] Address: [address] [place] [address] Performed By: #### 2 4356-8 ####[facility]ORATORYCLIA [id number] [place] [id number] [place] Bilirubin Ql (U) Negative Normal Negative [facility] Comment on above: Order Comment: Speci men Type: URINE SPECIMENOrdering Facility: [facility] Address: [address] [place] [address] Performed By: #### 2 4356-8 ####[facility] LABORATORYCLIA [id number] [place] [address] [place] Clarity (Unsp spec) Clear Normal Clear [facility] Comment on above: Order Comment: Speci men Type: URINE SPECIMENOrdering Facility: [facility] Address: [address] [place] [address] Performed By: #### 2 4356-8 ####[facility] LABORATORYCLIA [id number] [place] [address] [place] Color (U) Light Yellow Normal Yellow [facility] Comment on above: Order Comment: Speci men Type: URINE SPECIMENOrdering Facility: [facility] Address: [address] [place] [address] Performed By: #### 2 4356-8 ####[facility] LABORATORYCLIA [id number] [place] [address] [place] Glucose Test strip (U) [Mass/Vol] Negative Normal Trace, Negative [facility] Comment on above: Order Comment: Speci men Type: URINE SPECIMENOrdering Facility: [facility] Address: [address] [place] [address] Performed By: #### 2 4356-8 ####[facility]ORATORYCLIA [id number] [place] [address] [place] Hemoglobin Ql (U) Negative Normal Negative, Trace [facility] Comment on above: Order Comment: Speci men Type: URINE SPECIMENOrdering Facility: [facility] Address: [address] [place] [address] Performed By: #### 2 4356-8 ####[facility]ORATORYCLIA [id number] [place] [address] [place] Ketones Ql (U) Negative Normal Negative, Trace [facility] Comment on above: Order Comment: Speci men Type: URINE SPECIMENOrdering Facility: [facility] Address: [address] [place] [address] Performed By: #### 2 4356-8 ####[facility] LABORATORYCLIA [id number] [place] [address] [place] Leukocyte esterase Test strip Ql (U) Negative Normal Negative, 25 Angle/uL [facility] Comment on above: Order Comment: Speci men Type: URINE SPECIMENOrdering Facility: [facility] Address: [address] [place] [address] Performed By: #### 2 4356-8 ####[facility] LABORATORYCLIA [id number] [place] [address] [place] Nitrite Ql (U) Negative Normal Negative [facility] Comment on above: Order Comment: Speci men Type: URINE SPECIMENOrdering Facility: [facility] Address: [address] [place] [address] Performed By: #### 2 4356-8 ####[facility] LABORATORYCLIA [id number] [place] [address] [place] pH (U) 5.0 [pH] Normal 5.0-8.0 [facility] Comment on above: Order Comment: Speci men Type: URINE SPECIMENOrdering Facility: [facility] Address: [address] [place] [address] Performed By: #### 2 4356-8 ####[facility] LABORATORYCLIA [id number] [place] [address] [place] Protein (U) [Mass/Vol] Trace Normal Trace, Negative [facility] Comment on above: Order Comment: Speci men Type: URINE SPECIMENOrdering Facility: [facility] Address: [address] [place] [address] Performed By: #### 2 4356-8 ####[facility] LABORATORYCLIA [id number] [place] [address] [place] RBC LM.HPF (Urine sed) [#/Area] 0-3 /HPF Normal 0-3 /HPF [facility] Comment on above: Order Comment: Speci men Type: URINE SPECIMENOrdering Facility: [facility] Address: [address] [place] [address] Performed By: #### 2 4356-8 ####[facility] LABORATORYCLIA [id number] [place] [address] [place] Specific gravity (U) [Rel density] 1.013 Normal 1.005-1.03 0 [facility] Comment on above: Order Comment: Speci men Type: URINE SPECIMENOrdering Facility: [facility] Address: [address] [place] [address] Performed By: #### 2 4356-8 ####[facility]ORATORYCLIA [id number] [place] [address] [place] URIC ACID CRYSTALS (UA) Moderate Abnormal None Seen [facility] Comment on above: Order Comment: Speci men Type: URINE SPECIMENOrdering Facility: [facility] Address: [address] [place] [address] Performed By: #### 2 4356-8 ####[facility]ORATORYCLIA [id number] [place] [address] [place] Urobilinogen Ql (U) Negative Normal Negative [facility] Comment on above: Order Comment: Speci men Type: URINE SPECIMENOrdering Facility: [facility] Address: [address] [place] [address] Performed By: #### 2 4356-8 ####[facility]ORATORYCLIA [id number] [place] [address] [place] WBC LM.HPF (Urine sed) [#/Area] 0-5 /HPF Normal 0-5 /HPF [facility] Comment on above: Order Comment: Speci men Type: URINE SPECIMENOrdering Facility: [facility] Address: [address] [place] [address] Performed By: #### 2 4356-8 ####[facility]ORATORYCLIA [id number] [place] [id number] [place] ALLIED HEALTHon 08-28-2023 ALLIED HEALTH Normal [facility] ALLIED HEALTH Normal [facility] Bacteria Bld Culton 08-28-19 24 Bacteria identified Cx Nom (Bld) CULTURE, BLOOD: No growth 5 days Normal [facility] Comment on above: Performed By: #### 6 00-7 ####[facility] LABCLIA [id number] [place] [address] [place] CASE MGT INIT ASSESon 2023 CASE MGT INIT ASSES Normal [facility] CBC W Auto Differential pane l (Bld)on 08-28-2023 Basophils (Bld) [#/Vol] 0.03 10*3/uL Normal <0.11 [facility] Comment on above: Order Comment: Speci men Type: BLOOD SPECIMENOrdering Facility: [facility] Address: [address] [place] [address] Performed By: #### 5 7021-8 ####[facility] LABORATORYCLIA [id number] [place] [address] [place] Basophils/100 WBC (Bld) 0.3 % Normal [facility] Comment on above: Order Comment: Speci men Type: BLOOD SPECIMENOrdering Facility: [facility] Address: [address] [place] [address] Performed By: #### 5 7021-8 ####[facility] LABORATORYCLIA [id number] [place] [address] [place] Differential cell count method Nom (Bld) Auto Normal [facility] Comment on above: Order Comment: Speci men Type: BLOOD SPECIMENOrdering Facility: [facility] Address: [address] [place] [address] Performed By: #### 5 7021-8 ####[facility] LABORATORYCLIA [id number] [place] [address] [place] Eosinophils (Bld) [#/Vol] 0.06 10*3/uL Normal <0.46 [facility] Comment on above: Order Comment: Speci men Type: BLOOD SPECIMENOrdering Facility: [facility] Address: [address] [place] [address] Performed By: #### 5 7021-8 ####[facility] LABORATORYCLIA [id number] [place] [address] [place] Eosinophils/100 WBC (Bld) 0.6 % Normal [facility] Comment on above: Order Comment: Speci men Type: BLOOD SPECIMENOrdering Facility: [facility] Address: [address] [place] [address] Performed By: #### 5 7021-8 ####[facility] LABORATORYCLIA [id number] [place] [id number] [place] Erythrocyte distribution width (RBC) [Ratio] 12.3 % Normal 11.5-15.0 [facility] Comment on above: Order Comment: Speci men Type: BLOOD SPECIMENOrdering Facility: [facility] Address: [address] [place] [address] Performed By: #### 5 7021-8 ####[facility] LABORATORYCLIA [id number] [place] [address] [place] Hematocrit (Bld) [Volume fraction] 42.0 % Normal 39.0-51.0 [facility] Comment on above: Order Comment: Speci men Type: BLOOD SPECIMENOrdering Facility: [facility] Address: [address] [place] [address] Performed By: #### 5 7021-8 ####[facility] LABORATORYCLIA [id number] [place] [address] [place] Hemoglobin (Bld) [Mass/Vol] 14.3 g/dL Normal 13.0-17.0 [facility] Comment on above: Order Comment: Speci men Type: BLOOD SPECIMENOrdering Facility: [facility] Address: [address] [place] [address] Performed By: #### 5 7021-8 ####[facility] LABORATORYCLIA [id number] [place] [id number] [place] Immature granulocytes (Bld) [#/Vol] 0.16 10*3/uL High <0.10 [facility] Comment on above: Order Comment: Speci men Type: BLOOD SPECIMENOrdering Facility: [facility] Address: [address] [place] [address] Performed By: #### 5 7021-8 ####[facility] LABORATORYCLIA [id number] [address] [place] Immature granulocytes/100 WBC (Bld) 1.6 % Normal [facility] Comment on above: Order Comment: Speci men Type: BLOOD SPECIMENOrdering Facility: [facility] Address: [address] [place] [address] Performed By: #### 5 7021-8 ####[facility] LABORATORYCLIA [id number] [address] Lymphocytes (Bld) [#/Vol] 1.27 10*3/uL Normal 1.00-4.00 [facility] Comment on above: Order Comment: Speci men Type: BLOOD SPECIMENOrdering Facility: [facility] Address: [address] [place] [address] Performed By: #### 5 7021-8 ####[facility] LABORATORYCLIA [id number] [address] Lymphocytes/100 WBC (Bld) 12.7 % Normal [facility] Comment on above: Order Comment: Speci men Type: BLOOD SPECIMENOrdering Facility: [facility] Address: [address] [place] [address] Performed By: #### 5 7021-8 ####[facility] LABORATORYCLIA [id number] [address] [place] MCH (RBC) [Entitic mass] 29.5 pg Normal 26.0-34.0 [facility] Comment on above: Order Comment: Speci men Type: BLOOD SPECIMENOrdering Facility: [facility] Address: [address] [place] [address] Performed By: #### 5 7021-8 ####[facility] LABORATORYCLIA [id number] [address] STATES [facility] MCHC (RBC) [Mass/Vol] 34.0 g/dL Normal 30.5-36.0 [facility] Comment on above: Order Comment: Speci men Type: BLOOD SPECIMENOrdering Facility: [facility] Address: [address] [place] [address] Performed By: #### 5 7021-8 ####[facility] LABORATORYCLIA [id number] [address] STATES [facility] MCV (RBC) [Entitic vol] 86.8 fL Normal 80.0-100.0 [facility] Comment on above: Order Comment: Speci men Type: BLOOD SPECIMENOrdering Facility: [facility] Address: [address] [place] [address] Performed By: #### 5 7021-8 ####[facility] LABORATORYCLIA [id number] [place] [id number] [place] Monocytes (Bld) [#/Vol] 0.52 10*3/uL Normal <0.87 [facility] Comment on above: Order Comment: Speci men Type: BLOOD SPECIMENOrdering Facility: [facility] Address: [address] [place] [address] Performed By: #### 5 7021-8 ####[facility] LABORATORYCLIA [id number] [address] [place] Monocytes/100 WBC (Bld) 5.2 % Normal [facility] Comment on above: Order Comment: Speci men Type: BLOOD SPECIMENOrdering Facility: [facility] Address: [address] [place] [address] Performed By: #### 5 7021-8 ####[facility] LABORATORYCLIA [id number] [place] [address] [place] Neutrophils (Bld) [#/Vol] 7.97 10*3/uL High 1.45-7.50 [facility] Comment on above: Order Comment: Speci men Type: BLOOD SPECIMENOrdering Facility: [facility] Address: [address] [place] [address] Performed By: #### 5 7021-8 ####[facility] LABORATORYCLIA [id number] [place] [id number] [place] Neutrophils/100 WBC (Bld) 79.6 % Normal [facility] Comment on above: Order Comment: Speci men Type: BLOOD SPECIMENOrdering Facility: [facility] Address: [address] [place] [address] Performed By: #### 5 7021-8 ####[facility] LABORATORYCLIA [id number] [place] [address] [place] Nucleated RBC (Bld) [#/Vol] 10*3/uL Normal <0.01 [facility] Comment on above: Order Comment: Speci men Type: BLOOD SPECIMENOrdering Facility: [facility] Address: [address] [place] [address] Performed By: #### 5 7021-8 ####[facility] LABORATORYCLIA [id number] [place] [address] [place] Nucleated RBC/100 WBC (Bld) [Ratio] 0.0 /100 WBC Normal [facility] Comment on above: Order Comment: Speci men Type: BLOOD SPECIMENOrdering Facility: [facility] Address: [address] [place] [address] Performed By: #### 5 7021-8 ####[facility]ORATORYCLIA [id number] [place] [address] [place] Platelet mean volume (Bld) [Entitic vol] 10.4 fL Normal 9.0-12.7 [facility] Comment on above: Order Comment: Speci men Type: BLOOD SPECIMENOrdering Facility: [facility] Address: [address] [place] [address] Performed By: #### 5 7021-8 ####[facility]ORATORYCLIA [id number] [place] [address] [place] Platelets (Bld) [#/Vol] 529 10*3/uL High 150-400 [facility] Comment on above: Order Comment: Speci men Type: BLOOD SPECIMENOrdering Facility: [facility] Address: [address] [place] [address] Performed By: #### 5 7021-8 ####[facility] LABORATORYCLIA [id number] [place] [id number] [place] RBC (Bld) [#/Vol] 4.84 10*6/uL Normal 4.20-6.00 [facility] Comment on above: Order Comment: Speci men Type: BLOOD SPECIMENOrdering Facility: [facility] Address: [address] [place] [address] Performed By: #### 5 7021-8 ####[facility] LABORATORYCLIA [id number] [place] [address] [place] WBC (Bld) [#/Vol] 10.01 10*3/uL Normal 3.70-11.00 [facility] Comment on above: Order Comment: Speci men Type: BLOOD SPECIMENOrdering Facility: [facility] Address: [address], [place] [address] Performed By: #### 5 7021-8 ####[facility] LABORATORYCLIA [id number] [place] [id number] [facility] [place] CNOVon 08-28-2023 CNOV Office Visit (GENNOM ) -- AISHA JULIEN ([id number]) 1955 Date Time Provider Department 08/28/23 10:15 [...] Oropharynx: Lips, (more content not included)... Normal [facility] CONSULTon 08-28-2023 CONSULT Normal [facility] CT ABD/PEL WO IVCONon 2023 CT ABD/PEL WO IVCON Normal [facility] CT BRAIN WO IVCONon 08-28-19 CT BRAIN WO IVCON Normal [facility] Comprehensive metabolic 2000 panelon 08-28-2023 Albumin [Mass/Vol] 4.1 g/dL Normal 3.9-4.9 [facility] Comment on above: Order Comment: Arben suarez Type: BLOOD SPECIMENOrdering Facility: [facility] Address: [address] [place] [address] Performed By: #### 2 4323-8, [id number], 22169-0, 40155-3, 3040-3 ####[facility] LABORATORYCLIA [id number] [place] [address] [place] ALP [Catalytic activity/Vol] 284 U/L High 38-113 [facility] Comment on above: Order Comment: Speci men Type: BLOOD SPECIMENOrdering Facility: [facility] Address: [address] [place] [address] Performed By: #### 2 4323-8, QTP2004, 02976-9, 72158-2, 3040-3 ####[facility] LABORATORYCLIA [id number] [place] [id number] [place] ALT [Catalytic activity/Vol] 65 U/L High 10-54 [facility] Comment on above: Order Comment: Speci men Type: BLOOD SPECIMENOrdering Facility: [facility] Address: [address] [place] [address] Performed By: #### 2 4323-8, SRI0109, 47446-1, 42261-8, 3040-3 ####[facility] LABORATORYCLIA [id number] [place] [id number] [place] Anion gap [Moles/Vol] 18 mmol/L Normal 9-18 [facility] Comment on above: Order Comment: Speci men Type: BLOOD SPECIMENOrdering Facility: [facility] Address: [address] [place] [address] Performed By: #### 2 4323-8, ICU1590, 90799-7, 05713-2, 3040-3 ####[facility] LABORATORYCLIA [id number] [place] [id number] [place] AST [Catalytic activity/Vol] 33 U/L Normal 14-40 [facility] Comment on above: Order Comment: Speci men Type: BLOOD SPECIMENOrdering Facility: [facility] Address: [address] [place] [address] Performed By: #### 2 4323-8, [id number], 97352-4, 14439-1, 3040-3 ####[facility] LABORATORYCLIA [id number] [place] [id number] [place] Bilirubin [Mass/Vol] 0.7 mg/dL Normal 0.2-1.3 [facility] Comment on above: Order Comment: Speci men Type: BLOOD SPECIMENOrdering Facility: [facility] Address: [address] [place] [address] Performed By: #### 2 4323-8, [id number], 06138-2, 32965-8, 3040-3 ####[facility] LABORATORYCLIA [id number] [place] [address] [place] Calcium [Mass/Vol] 9.5 mg/dL Normal 8.5-10.2 [facility] Comment on above: Order Comment: Speci men Type: BLOOD SPECIMENOrdering Facility: [facility] Address: [address] [facility] [place] [id number] Performed By: #### 2 4323-8, [id number], 52943-2, 83881-6, 3040-3 ####[facility] LABORATORYCLIA [id number] [place] [id number] [place] Chloride [Moles/Vol] 96 mmol/L Low 97-105 [facility] Comment on above: Order Comment: Speci men Type: BLOOD SPECIMENOrdering Facility: [facility] Address: [address] [facility] [place] [address] Performed By: #### 2 4323-8, [id number], 64412-3, 94862-0, 3040-3 ####[facility] LABORATORYCLIA [id number] [place] [id number] [place] CO2 [Moles/Vol] 12 mmol/L Low 22-30 [facility] Comment on above: Order Comment: Speci men Type: BLOOD SPECIMENOrdering Facility: [facility] Address: [address] [place] [address] Performed By: #### 2 4323-8, [id number], 42846-9, 09291-6, 3040-3 ####[facility] LABORATORYCLIA [id number] [place] [address] [place] Creatinine [Mass/Vol] 2.53 mg/dL High 0.73-1.22 [facility] Comment on above: Order Comment: Speci men Type: BLOOD SPECIMENOrdering Facility: [facility] Address: [address] [facility] [place] [address] Performed By: #### 2 4323-8, [id number], 03659-7, 17940-4, 3040-3 ####[facility] LABORATORYCLIA [id number] [place] [id number] [place] Creatinine and Glomerular filtration rate.predicted panel (S/P/Bld) 27 mL/min/1.73m??? Low >=60 [facility] Comment on above: Order Comment: Arben suarez Type: BLOOD SPECIMENOrdering Facility: [facility] Address: [address] [place] [address] Result Comment: Bailey mated Glomerular Filtration Rate [...] actual GFR. Performed By: #### 2 4323-8, AIE5420, 22774-2, 63085-7, 3040-3 ####[facility]ORATORYCLIA [id number] [place] [id number] [place] Glucose [Mass/Vol] 138 mg/dL High 74-99 [facility] Comment on above: Order Comment: Arben suarez Type: BLOOD SPECIMENOrdering Facility: [facility] Address: [address] [place] [address] Result Comment: The [place] Diabetes [...] 2016.39(Suppl 1). Performed By: #### 2 4323-8, XRI1438, 50424-0, 95743-6, 3040-3 ####[facility] LABORATORYCLIA [id number] [place] [address] [place] Potassium [Moles/Vol] 5.4 mmol/L High 3.7-5.1 [facility] Comment on above: Order Comment: Speci men Type: BLOOD SPECIMENOrdering Facility: [facility] Address: [address] [place] [address] Performed By: #### 2 4323-8, [id number], 73155-6, 33548-2, 3040-3 ####[facility] LABORATORYCLIA [id number] [place] [address] [place] Protein [Mass/Vol] 8.2 g/dL High 6.3-8.0 [facility] Comment on above: Order Comment: Speci men Type: BLOOD SPECIMENOrdering Facility: [facility] Address: [address] [place] [address] Performed By: #### 2 4323-8, [id number], 75357-0, 24702-5, 3040-3 ####[facility] LABORATORYCLIA [id number] [place] [id number] [place] Sodium [Moles/Vol] 126 mmol/L Low 136-144 [facility] Comment on above: Order Comment: Speci men Type: BLOOD SPECIMENOrdering Facility: [facility] Address: [address] [place] [address] Performed By: #### 2 4323-8, XKA4779, 63357-1, 93713-9, 3040-3 ####[facility] LABORATORYCLIA [id number] [place] [id number] [place] Urea nitrogen [Mass/Vol] 79 mg/dL High 9-24 [facility] Comment on above: Order Comment: Speci men Type: BLOOD SPECIMENOrdering Facility: [facility] Address: [address] [place] [address] Performed By: #### 2 4323-8, [id number], 81866-9, 04044-9, 3040-3 ####[facility] LABORATORYCLIA [id number] [place] [id number] [place] ECG COMPLETEon 08-28-2023 ECG COMPLETE Normal [facility] ED NOTEon 08-28-2023 ED NOTE HNO ID: [id number] Author: ASTRID VALLE RN Service: ? Author Type: Registered Nurse Type: ED Notes Filed: 08/28/2023 19:07 Note Text: Report to [facility] ED NOTE HNO ID: [id number] Author: ASTRID VALLE RN Service: ? Author Type: Registered Nurse Type: ED Notes Filed: 08/28/2023 18:33 Note Text: RN unable to obtain oral or axillary temperature. Pt refusing rectal temperature at this time. Normal [facility] ED NOTE HNO ID: [id number] Author: JAVON AVILES RN Service: ? Author Type: Registered Nurse Type: ED Notes Filed: 08/28/2023 17:23 Note Text: Bed: 26-ED Expected date: Expected time: Means of arrival: Comments: triage Normal [facility] ED PROV NOTEon 08-28-2023 ED PROV NOTE Normal [facility] ED Triage Noteon 08-28-2023 ED Triage Note Normal [facility] FLUABV+SARS-CoV-2+RSV Pnl Re sp VERITO+probeon 08-28-2023 FLUABV+SARS-CoV-2+RSV Pnl Resp VERITO+probe Normal [facility] Comment on above: Performed By: #### 9 5941-1 ####[facility] LABORATORYCLIA [id number] [address] [place] HIGH SENSITIVITY TROPONIN T (INITIAL)on 08-28-2023 Troponin T.cardiac High sensitivity method [Mass/Vol] 38 ng/L High <12 [facility] Comment on above: Order Comment: Speci men Type: BLOOD SPECIMENOrdering Facility: [facility] Address: [address] [place] [id number] Result Comment: When assessing risk for acute [...] day MACE. Performed By: #### 2 4323-8, [id number], 43098-5, 79211-5, 3040-3 ####[facility] LABORATORYCLIA [id number] [place] [id number] [place] HIGH SENSITIVITY TROPONIN T (SECOND)on 08-28-2023 Troponin T.cardiac High sensitivity method [Mass/Vol] 36 ng/L High <12 [facility] Comment on above: Order Comment: Arben suarez Type: BLOOD SPECIMENOrdering Facility: [facility] Address: [address] [place] [address] Result Comment: When assessing risk for acute [...] 30 day MACE. Performed By: #### L BP1085 ####[facility] LABORATORYCLIA [id number] [place] [id number] [place] Lipase SerPl-cCncon 08-28-19 24 Lipase [Catalytic activity/Vol] 148 U/L High 16-61 [facility] Comment on above: Order Comment: Arben suarez Type: BLOOD SPECIMENOrdering Facility: [facility] Address: [address] [place] [address] Performed By: #### 2 4323-8, [id number], 34381-0, 44038-3, 0-3 ####[facility] LABORATORYCLIA [id number] [place] [id number] [place] Magnesium SerPl-mCncon 08-28 Magnesium [Mass/Vol] 2.5 mg/dL High 1.7-2.3 [facility] Comment on above: Order Comment: Arben suarez Type: BLOOD SPECIMENOrdering Facility: [facility] Address: [address] [place] [address] Performed By: #### 2 4323-8, OPL8760, 50637-6, 14374-7, 3040-3 ####[facility] LABORATORYCLIA [id number] [place] [id number] [facility] NT-proBNP [facility] 08-28 Natriuretic peptide.B prohormone N-Terminal [Mass/Vol] 404 pg/mL High <125 [facility] Comment on above: Order Comment: Speci men Type: BLOOD SPECIMENOrdering Facility: [facility] Address: [address] [place] [address] Performed By: #### 2 4323-8, ACQ2920, 36440-5, 17851-2, 3040-3 ####[facility]ORATORYCLIA [id number] [place] [id number] [place] PT panel Coag (PPP)on 2023 INR Coag (PPP) [Relative time] 1.3 {INR} Normal 0.9-1.3 [facility] Comment on above: Order Comment: Speci men Type: BLOOD SPECIMENOrdering Facility: [facility] Address: [address] [place] [address] Result Comment: Karissa min K Antagonist (VKA) [...] al. Chest 2012, 141:7S-47SNishimura RA, et al. JACC 2017, 70: 252-289 Performed By: #### 3 4528-0, 32930-4 ####[facility] LABORATORYCLIA [id number] [place] [id number] [place] PT Coag (PPP) [Time] 13.7 s High 9.7-13.0 [facility] Comment on above: Order Comment: Speci men Type: BLOOD SPECIMENOrdering Facility: [facility] Address: [place] [address] Performed By: #### 3 4528-0, 34687-9 ####[facility] LABORATORYCLIA [id number] [address] STATES [facility] LACTATEon 08-28-2023 Lactate [Moles/Vol] 2.2 mmol/L High 0.0-2.0 [facility] Comment on above: Order Comment: Speci men Type: BLOOD SPECIMENOrdering Facility: [facility] Address: [place] [address] Performed By: #### S LACT ####[facility] LABORATORYCLIA [id number] [address] Lactate [Moles/Vol] 2.6 mmol/L High 0.0-2.0 [facility] Comment on above: Order Comment: Speci men Type: BLOOD SPECIMENOrdering Facility: [facility] Address: [place] [address] Performed By: #### S LACT ####[facility] LABORATORYCLIA [id number] [address] [place] XR ABDOMEN 1V SUPINEon 08-28 XR ABDOMEN 1V SUPINE Normal [facility] XR CHEST 1V FRONTAL PORTon 0 08-28-2023 XR CHEST 1V FRONTAL PORT Normal [facility] aPTT PPPon 08-28-2023 aPTT Coag (PPP) [Time] 32.1 s Normal 23.0-32.4 [facility] Comment on above: Order Comment: Speci men Type: BLOOD SPECIMENOrdering Facility: [facility] Address: [place] [address] Performed By: #### 3 4528-0, 23895-1 ####[facility] LABORATORYCLIA [id number] [address] [place] CASE MANAGEMon 08-17-2023 CASE MANAGEM Normal [facility] CNDSon 08-17-2023 CNDS Normal [facility] Comprehensive metabolic 2000 panelon 08-17-2023 Albumin [Mass/Vol] 3.0 g/dL Low 3.9-4.9 [facility] Comment on above: Order Comment: Speci men Type: BLOOD SPECIMENOrdering Facility: [facility] Address: [address] [place] [address] Performed By: #### 2 4323-8, 2771, ####[facility] LABORATORYCLIA [id number] [place] [id number] [place] ALP [Catalytic activity/Vol] 137 U/L High 38-113 [facility] Comment on above: Order Comment: Speci men Type: BLOOD SPECIMENOrdering Facility: [facility] Address: [address] [place] [address] Performed By: #### 2 4323-8, 2776-08, ####[facility] LABORATORYCLIA [id number] [place] [id number] [place] ALT [Catalytic activity/Vol] 19 U/L Normal 10-54 [facility] Comment on above: Order Comment: Speci men Type: BLOOD SPECIMENOrdering Facility: [facility] Address: [address] [place] [address] Performed By: #### 2 4323-8, 2776-08, ####[facility]ORATORYCLIA [id number] [place] [id number] [place] Anion gap [Moles/Vol] 11 mmol/L Normal 9-18 [facility] Comment on above: Order Comment: Speci men Type: BLOOD SPECIMENOrdering Facility: [facility] Address: [address] [place] [address] Performed By: #### 2 4323-8, 2776-08, ####[facility] LABORATORYCLIA [id number] [place] [id number] [place] AST [Catalytic activity/Vol] 18 U/L Normal 14-40 [facility] Comment on above: Order Comment: Speci men Type: BLOOD SPECIMENOrdering Facility: [facility] Address: [address] [place] [address] Performed By: #### 2 4323-8, 2776-08, ####[facility]ORATORYCLIA [id number] [place] [address] [place] Bilirubin [Mass/Vol] 0.8 mg/dL Normal 0.2-1.3 [facility] Comment on above: Order Comment: Speci men Type: BLOOD SPECIMENOrdering Facility: [facility] Address: [address] [place] [address] Performed By: #### 2 4323-8, 2776-08, ####[facility] LABORATORYCLIA [id number] [place] [id number] [place] Calcium [Mass/Vol] 8.4 mg/dL Low 8.5-10.2 [facility] Comment on above: Order Comment: Speci men Type: BLOOD SPECIMENOrdering Facility: [facility] Address: [address] [place] [address] Performed By: #### 2 4323-8, 2776-08, ####[facility] LABORATORYCLIA [id number] [place] [id number] [place] [place] Chloride [Moles/Vol] 102 mmol/L Normal 97-105 [facility] Comment on above: Order Comment: Speci men Type: BLOOD SPECIMENOrdering Facility: [facility] Address: [address] [address] Performed By: #### 2 4323-8, 2776-08, ####[facility] LABORATORYCLIA [id number] [place] [address] [place] CO2 [Moles/Vol] 22 mmol/L Normal 22-30 [facility] Comment on above: Order Comment: Speci men Type: BLOOD SPECIMENOrdering Facility: [facility] Address: [address] [address] Performed By: #### 2 4323-8, 2776-08, ####[facility] LABORATORYCLIA [id number] [place] [address] [place] Creatinine [Mass/Vol] 1.06 mg/dL Normal 0.73-1.22 [facility] Comment on above: Order Comment: Arben suarez Type: BLOOD SPECIMENOrdering Facility: [facility] Address: [address] [place] [address] Performed By: #### 2 4323-8, 2777-, ####[facility] LABORATORYCLIA [id number] [place] [id number] [place] Creatinine and Glomerular filtration rate.predicted panel (S/P/Bld) 76 mL/min/1.73m??? Normal >=60 [facility] Comment on above: Order Comment: Arben suarez Type: BLOOD SPECIMENOrdering Facility: [facility] Address: [address] [place] [address] Result Comment: Bailey mated Glomerular Filtration Rate [...] actual GFR. Performed By: #### 2 4323-8, 2776-08, ####[facility] LABORATORYCLIA [id number] [place] [id number] [place] Glucose [Mass/Vol] 119 mg/dL High 74-99 [facility] Comment on above: Order Comment: Arben suarez Type: BLOOD SPECIMENOrdering Facility: [facility] Address: [address] [place] [address] Result Comment: The [place] Diabetes [...] By: #### 2 4323-8, 2776-08, ####GE[facility] LABORATORYCLIA [id number] [place] [address] [place] Potassium [Moles/Vol] 3.9 mmol/L Normal 3.7-5.1 [facility] Comment on above: Order Comment: Speci men Type: BLOOD SPECIMENOrdering Facility: [facility] Address: [address] [place] [address] Performed By: #### 2 4323-8, 2776-08, ####GE[facility] LABORATORYCLIA [id number] [place] [id number] [place] Protein [Mass/Vol] 5.9 g/dL Low 6.3-8.0 [facility] Comment on above: Order Comment: Speci men Type: BLOOD SPECIMENOrdering Facility: [facility] Address: [address] [place] [id number] Performed By: #### 2 4323-8, 2776-08, ####GE[facility] LABORATORYCLIA [id number] [place] [id number] [place] Sodium [Moles/Vol] 135 mmol/L Low 136-144 [facility] Comment on above: Order Comment: Speci men Type: BLOOD SPECIMENOrdering Facility: [facility] Address: [address] [place] [address] Performed By: #### 2 4323-8, 2776-08, ####GE[facility] LABORATORYCLIA [id number] [place] [id number] [place] Urea nitrogen [Mass/Vol] 19 mg/dL Normal 9-24 [facility] Comment on above: Order Comment: Speci men Type: BLOOD SPECIMENOrdering Facility: [facility] Address: [address] [place] [address] Performed By: #### 2 4323-8, 2776-08, ####[facility] LABORATORYCLIA [id number] [place] [id number] [place] Magnesium [facility]-ncon 08-17 Magnesium [Mass/Vol] 2.3 mg/dL Normal 1.7-2.3 [facility] Comment on above: Order Comment: Speci men Type: BLOOD SPECIMENOrdering Facility: [facility] Address: [place] [address] Performed By: #### 2 4323-8, 27702-22, ####[facility] LABORATORYCLIA [id number] [place] [id number] [place] NURSING PROGon 08-17-2023 NURSING PROG Normal [facility] Phosphate [Mass/Vol] 3.0 mg/dL Normal 2.7-4.8 [facility] Comment on above: Order Comment: Speci men Type: BLOOD SPECIMENOrdering Facility: [facility] Address: [place] [address] Performed By: #### 2 4323-8, 2776-08, ####[facility] LABORATORYCLIA [id number] [place] [id number] [place] CASE MANAGEMon 08-16-2023 CASE MANAGEM Normal [facility] CBC panel Auto (Bld)on 08-16 Erythrocyte distribution width (RBC) [Ratio] 12.0 % Normal 11.5-15.0 [facility] Comment on above: Order Comment: Speci men Type: BLOOD SPECIMENOrdering Facility: [facility] Address: [place] [address] Performed By: #### 5 8410-2 ####[facility] LABORATORYCLIA [id number] [place] [id number] [place] Hematocrit (Bld) [Volume fraction] 33.3 % Low 39.0-51.0 [facility] Comment on above: Order Comment: Speci men Type: BLOOD SPECIMENOrdering Facility: [facility] Address: [place] [address] Performed By: #### 5 8410-2 ####[facility] LABORATORYCLIA [id number] [place] [address] [place] Hemoglobin (Bld) [Mass/Vol] 11.1 g/dL Low 13.0-17.0 [facility] Comment on above: Order Comment: Speci men Type: BLOOD SPECIMENOrdering Facility: [facility] Address: [address] [place] [address] Performed By: #### 5 8410-2 ####[facility] LABORATORYCLIA [id number] [place] [address] [place] MCH (RBC) [Entitic mass] 30.2 pg Normal 26.0-34.0 [facility] Comment on above: Order Comment: Speci men Type: BLOOD SPECIMENOrdering Facility: [facility] Address: [address] [place] [address] Performed By: #### 5 8410-2 ####[facility] LABORATORYCLIA [id number] [address] [place] MCHC (RBC) [Mass/Vol] 33.3 g/dL Normal 30.5-36.0 [facility] Comment on above: Order Comment: Speci men Type: BLOOD SPECIMENOrdering Facility: [facility] Address: [address] [place] [address] Performed By: #### 5 8410-2 ####[facility] LABORATORYCLIA [id number] [place] [address] [place] MCV (RBC) [Entitic vol] 90.5 fL Normal 80.0-100.0 [facility] Comment on above: Order Comment: Speci men Type: BLOOD SPECIMENOrdering Facility: [facility] Address: [address] [place] [address] Performed By: #### 5 8410-2 ####[facility] LABORATORYCLIA [id number] [address] [place] Nucleated RBC (Bld) [#/Vol] 10*3/uL Normal <0.01 [facility] Comment on above: Order Comment: Speci men Type: BLOOD SPECIMENOrdering Facility: [facility] Address: [address] [facility] [place] [address] Performed By: #### 5 8410-2 ####[facility] LABORATORYCLIA [id number] [place] [id number] [place] Platelet mean volume (Bld) [Entitic vol] 11.3 fL Normal 9.0-12.7 [facility] Comment on above: Order Comment: Speci men Type: BLOOD SPECIMENOrdering Facility: [facility] Address: [address] [place] [address] Performed By: #### 5 8410-2 ####[facility] LABORATORYCLIA [id number] [place] [id number] [place] Platelets (Bld) [#/Vol] 214 10*3/uL Normal 150-400 [facility] Comment on above: Order Comment: Speci men Type: BLOOD SPECIMENOrdering Facility: [facility] Address: [address] [place] [address] Performed By: #### 5 8410-2 ####[facility] LABORATORYCLIA [id number] [place] [id number] [place] RBC (Bld) [#/Vol] 3.68 10*6/uL Low 4.20-6.00 [facility] Comment on above: Order Comment: Speci men Type: BLOOD SPECIMENOrdering Facility: [facility] Address: [place] [address] Performed By: #### 5 8410-2 ####[facility] LABORATORYCLIA [id number] [place] [id number] [place] WBC (Bld) [#/Vol] 7.23 10*3/uL Normal 3.70-11.00 [facility] Comment on above: Order Comment: Speci men Type: BLOOD SPECIMENOrdering Facility: [facility] Address: [place] [address] Performed By: #### 5 8410-2 ####[facility] LABORATORYCLIA [id number] [place] [id number] [place] CONSULTon 08-16-2023 CONSULT Normal [facility] Comprehensive metabolic 2000 panelon 08-16-2023 Albumin [Mass/Vol] 3.2 g/dL Low 3.9-4.9 [facility] Comment on above: Order Comment: Speci men Type: BLOOD SPECIMENOrdering Facility: [facility] Address: [address] [place] [address] Performed By: #### 2 777-1, , ####[facility] LABORATORYCLIA [id number] [place] [address] [place] ALP [Catalytic activity/Vol] 139 U/L High 38-113 [facility] Comment on above: Order Comment: Speci men Type: BLOOD SPECIMENOrdering Facility: [facility] Address: [address] [place] [address] Performed By: #### 2 777-1, , ####[facility] LABORATORYCLIA [id number] [place] [id number] [place] ALT [Catalytic activity/Vol] 23 U/L Normal 10-54 [facility] Comment on above: Order Comment: Speci men Type: BLOOD SPECIMENOrdering Facility: [facility] Address: [address] [place] [address] Performed By: #### 2 777-1, , ####[facility] LABORATORYCLIA [id number] [place] [address] [place] Anion gap [Moles/Vol] 9 mmol/L Normal 9-18 [facility] Comment on above: Order Comment: Speci men Type: BLOOD SPECIMENOrdering Facility: [facility] Address: [address] [place] [address] Performed By: #### 2 777-1, , ####[facility] LABORATORYCLIA [id number] [place] [address] [place] AST [Catalytic activity/Vol] 22 U/L Normal 14-40 [facility] Comment on above: Order Comment: Speci men Type: BLOOD SPECIMENOrdering Facility: [facility] Address: [address] [place] [address] Performed By: #### 2 777-1, , ####[facility] LABORATORYCLIA [id number] [place] [address] [place] Bilirubin [Mass/Vol] 0.8 mg/dL Normal 0.2-1.3 [facility] Comment on above: Order Comment: Speci men Type: BLOOD SPECIMENOrdering Facility: [facility] Address: [address] [place] [address] Performed By: #### 2 777-1, , ####GE[facility] LABORATORYCLIA [id number] [place] [id number] [place] Calcium [Mass/Vol] 8.7 mg/dL Normal 8.5-10.2 [facility] Comment on above: Order Comment: Speci men Type: BLOOD SPECIMENOrdering Facility: [facility] Address: [address] [place] [address] Performed By: #### 2 777-1, , ####GEOVAN[facility] LABORATORYCLIA [id number] [place] [id number] [place] Chloride [Moles/Vol] 103 mmol/L Normal 97-105 [facility] Comment on above: Order Comment: Speci men Type: BLOOD SPECIMENOrdering Facility: [facility] Address: [address] [place] [address] Performed By: #### 2 777-1, , ####[facility] LABORATORYCLIA [id number] [place] [address] [place] CO2 [Moles/Vol] 25 mmol/L Normal 22-30 [facility] Comment on above: Order Comment: Speci men Type: BLOOD SPECIMENOrdering Facility: [facility] Address: [address] [place] [address] Performed By: #### 2 777-1, , ####GE[facility] LABORATORYCLIA [id number] [place] [address] [place] Creatinine [Mass/Vol] 1.04 mg/dL Normal 0.73-1.22 [facility] Comment on above: Order Comment: Arben suarez Type: BLOOD SPECIMENOrdering Facility: [facility] Address: [address] [place] [address] Performed By: #### 2 777-1, 76276-6, ####[facility] LABORATORYCLIA [id number] [place] [id number] [place] Creatinine and Glomerular filtration rate.predicted panel (S/P/Bld) 78 mL/min/1.73m??? Normal >=60 [facility] Comment on above: Order Comment: Arben suarez Type: BLOOD SPECIMENOrdering Facility: [facility] Address: [address] [place] [address] Result Comment: Bailey mated Glomerular Filtration Rate [...] GFR. Performed By: #### 2 777-1, , ####[facility] LABORATORYCLIA [id number] [place] [id number] [place] Glucose [Mass/Vol] 111 mg/dL High 74-99 [facility] Comment on above: Order Comment: Arben suarez Type: BLOOD SPECIMENOrdering Facility: [facility] Address: [address] [place] [address] Result Comment: The [place] Diabetes [...] By: #### 2 777-1, , ####GE[facility] LABORATORYCLIA [id number] [place] [address] [place] Potassium [Moles/Vol] 4.2 mmol/L Normal 3.7-5.1 [facility] Comment on above: Order Comment: Speci men Type: BLOOD SPECIMENOrdering Facility: [facility] Address: [address] [place] [address] Performed By: #### 2 777-1, , ####[facility] LABORATORYCLIA [id number] [place] [id number] [place] Protein [Mass/Vol] 6.2 g/dL Low 6.3-8.0 [facility] Comment on above: Order Comment: Speci men Type: BLOOD SPECIMENOrdering Facility: [facility] Address: [address] [place] [address] Performed By: #### 2 777-1, , ####GE[facility] LABORATORYCLIA [id number] [place] [id number] [place] Sodium [Moles/Vol] 137 mmol/L Normal 136-144 [facility] Comment on above: Order Comment: Speci men Type: BLOOD SPECIMENOrdering Facility: [facility] Address: [address] [place] [address] Performed By: #### 2 777-1, , ####[facility] LABORATORYCLIA [id number] [place] [address] [place] Urea nitrogen [Mass/Vol] 24 mg/dL Normal 9-24 [facility] Comment on above: Order Comment: Speci men Type: BLOOD SPECIMENOrdering Facility: [facility] Address: [address] [place] [id number] Performed By: #### 2 777-1, , ####[facility] LABORATORYCLIA [id number] [place] [address] [place] Magnesium SerPl-mCncon 08-16 Magnesium [Mass/Vol] 1.8 mg/dL Normal 1.7-2.3 [facility] Comment on above: Order Comment: Speci men Type: BLOOD SPECIMENOrdering Facility: [facility] Address: [address] [place] [address] Performed By: #### 2 777-1, 75880-1, ####[facility] LABORATORYCLIA [id number] [place] [id number] [place] Phosphate SerPl-mCncon 08-16 Phosphate [Mass/Vol] 2.6 mg/dL Low 2.7-4.8 [facility] Comment on above: Order Comment: Speci men Type: BLOOD SPECIMENOrdering Facility: [facility] Address: [address] [place] [address] Performed By: #### 2 777-1, 14273-7, ####[facility] LABORATORYCLIA [id number] [place] [id number] [place] ALLIED HEALTHon 08-15-2023 ALLIED HEALTH Normal [facility] ALLIED HEALTH Normal [facility] Basic metabolic 2000 panelon 08-15-2023 Anion gap [Moles/Vol] 10 mmol/L Normal 9-18 [facility] Comment on above: Order Comment: Speci men Type: BLOOD SPECIMENOrdering Facility: [facility] Address: [address] [place] [id number] Performed By: #### 2 4321-2 ####[facility] LABORATORYCLIA [id number] [place] [id number] [place] Calcium [Mass/Vol] 8.8 mg/dL Normal 8.5-10.2 [facility] Comment on above: Order Comment: Speci men Type: BLOOD SPECIMENOrdering Facility: [facility] Address: [address] [place] [address] Performed By: #### 2 4321-2 ####[facility] LABORATORYCLIA [id number] [place] [address] [place] Chloride [Moles/Vol] 101 mmol/L Normal 97-105 [facility] Comment on above: Order Comment: Speci men Type: BLOOD SPECIMENOrdering Facility: [facility] Address: [address] [place] [address] Performed By: #### 2 4321-2 ####[facility] LABORATORYCLIA [id number] [place] [id number] [facility] [place] CO2 [Moles/Vol] 26 mmol/L Normal 22-30 [facility] Comment on above: Order Comment: Speci men Type: BLOOD SPECIMENOrdering Facility: [facility] Address: [address] [place] [address] Performed By: #### 2 4321-2 ####[facility] LABORATORYCLIA [id number] [address] Creatinine [Mass/Vol] 1.08 mg/dL Normal 0.73-1.22 [facility] Comment on above: Order Comment: Speci men Type: BLOOD SPECIMENOrdering Facility: [facility] Address: [address] [place] [address] Performed By: #### 2 4321-2 ####[facility] LABORATORYCLIA [id number] [address] Creatinine and Glomerular filtration rate.predicted panel (S/P/Bld) 75 mL/min/1.73m??? Normal >=60 [facility] Comment on above: Order Comment: Speci men Type: BLOOD SPECIMENOrdering Facility: [facility] Address: [address] [place] [address] Result Comment: Bailey mated Glomerular Filtration Rate [...] actual GFR. Performed By: #### 2 4321-2 ####[facility] LABORATORYCLIA [id number] [place] [address] [place] Glucose [Mass/Vol] 92 mg/dL Normal 74-99 [facility] Comment on above: Order Comment: Speci men Type: BLOOD SPECIMENOrdering Facility: [facility] Address: [address] [place] [address] Result Comment: The [place] Diabetes [...] 2016.39(Suppl 1). Performed By: #### 2 4321-2 ####[facility] LABORATORYCLIA [id number] [place] [address] [place] Potassium [Moles/Vol] 4.6 mmol/L Normal 3.7-5.1 [facility] Comment on above: Order Comment: Demarcusi daniela Type: BLOOD SPECIMENOrdering Facility: [facility] Address: [address] [place] [address] Performed By: #### 2 4321-2 ####[facility] LABORATORYCLIA [id number] [place] [id number] [place] Sodium [Moles/Vol] 137 mmol/L Normal 136-144 [facility] Comment on above: Order Comment: Speci men Type: BLOOD SPECIMENOrdering Facility: [facility] Address: [address] [place] [address] Performed By: #### 2 4321-2 ####[facility] LABORATORYCLIA [id number] [place] [address] [place] Urea nitrogen [Mass/Vol] 28 mg/dL High 9-24 [facility] Comment on above: Order Comment: Speci men Type: BLOOD SPECIMENOrdering Facility: [facility] Address: [address] [place] [address] Performed By: #### 2 4321-2 ####[facility] LABORATORYCLIA [id number] [place] [id number] [place] CASE MANAGEMon 08-15-2023 CASE MANAGEM Normal [facility] CASE MANAGEM Normal [facility] CONSULT PROGon 08-15-2023 CONSULT PROG Normal [facility] Comprehensive metabolic 2000 panelon 08-15-2023 Albumin [Mass/Vol] 3.0 g/dL Low 3.9-4.9 [facility] Comment on above: Order Comment: Speci men Type: BLOOD SPECIMENOrdering Facility: [facility] Address: [address] [place] [address] Performed By: #### 1 9123-9, 21734-8, 2777- ####[facility] LABORATORYCLIA [id number] [place] [id number] [place] ALP [Catalytic activity/Vol] 123 U/L High 38-113 [facility] Comment on above: Order Comment: Speci men Type: BLOOD SPECIMENOrdering Facility: [facility] Address: [address] [place] [address] Performed By: #### 1 9123-9, 19611-2, 2777- ####[facility] LABORATORYCLIA [id number] [place] [id number] [place] ALT [Catalytic activity/Vol] 24 U/L Normal 10-54 [facility] Comment on above: Order Comment: Speci men Type: BLOOD SPECIMENOrdering Facility: [facility] Address: [address] [place] [address] Performed By: #### 1 9123-9, 92672-0, 2777-1 ####[facility] LABORATORYCLIA [id number] [place] [id number] [place] Anion gap [Moles/Vol] 8 mmol/L Low 9-18 [facility] Comment on above: Order Comment: Speci men Type: BLOOD SPECIMENOrdering Facility: [facility] Address: [address] [place] [address] Performed By: #### 1 9123-9, 75277-3, 2776- ####[facility] LABORATORYCLIA [id number] [place] [address] [place] AST [Catalytic activity/Vol] 26 U/L Normal 14-40 [facility] Comment on above: Order Comment: Speci men Type: BLOOD SPECIMENOrdering Facility: [facility] Address: [address] [place] [address] Performed By: #### 1 9123-9, 14097-9, 2776- ####[facility] LABORATORYCLIA [id number] [place] [id number] [place] Bilirubin [Mass/Vol] 0.9 mg/dL Normal 0.2-1.3 [facility] Comment on above: Order Comment: Speci men Type: BLOOD SPECIMENOrdering Facility: [facility] Address: [address] [place] [address] Performed By: #### 1 9123-9, , 2776-08 ####[facility] LABORATORYCLIA [id number] [place] [address] [place] Calcium [Mass/Vol] 8.9 mg/dL Normal 8.5-10.2 [facility] Comment on above: Order Comment: Speci men Type: BLOOD SPECIMENOrdering Facility: [facility] Address: [address] [place] [address] Performed By: #### 1 9123-9, 32354-7, 2776-08 ####[facility] LABORATORYCLIA [id number] [place] [id number] [place] Chloride [Moles/Vol] 103 mmol/L Normal 97-105 [facility] Comment on above: Order Comment: Speci men Type: BLOOD SPECIMENOrdering Facility: [facility] Address: [address] [place] [address] Performed By: #### 1 9123-9, 27592-8, 2776- ####[facility] LABORATORYCLIA [id number] [place] [id number] [place] CO2 [Moles/Vol] 28 mmol/L Normal 22-30 [facility] Comment on above: Order Comment: Speci men Type: BLOOD SPECIMENOrdering Facility: [facility] Address: [address] [place] [address] Performed By: #### 1 9123-9, 36217-4, 2776-08 ####[facility] LABORATORYCLIA [id number] [place] [id number] [place] Creatinine [Mass/Vol] 1.01 mg/dL Normal 0.73-1.22 [facility] Comment on above: Order Comment: Speci men Type: BLOOD SPECIMENOrdering Facility: [facility] Address: [address] [place] [address] Performed By: #### 1 9123-9, 19230-1, 2776-08 ####[facility] LABORATORYCLIA [id number] [place] [address] [place] [facility] Creatinine and Glomerular filtration rate.predicted panel (S/P/Bld) 81 mL/min/1.73m??? Normal >=60 [facility] Comment on above: Order Comment: Arben daniela Type: BLOOD SPECIMENOrdering Facility: [facility] Address: [address] [place] [address] Result Comment: Bailey mated Glomerular Filtration Rate [...] actual GFR. Performed By: #### 1 9123-9, 80387-8, 2776-08 ####[facility] LABORATORYCLIA [id number] [place] [id number] [place] Glucose [Mass/Vol] 91 mg/dL Normal 74-99 [facility] Comment on above: Order Comment: Arben suarez Type: BLOOD SPECIMENOrdering Facility: [facility] Address: [address] [place] [address] Result Comment: [facility] [place] [facility] [...] 2016.39(Suppl 1). Performed By: #### 1 9123-9, 98080-1, 2776- ####[facility]ORATORYCLIA [id number] [place] [address] [place] Potassium [Moles/Vol] 5.3 mmol/L High 3.7-5.1 [facility] Comment on above: Order Comment: Speci men Type: BLOOD SPECIMENOrdering Facility: [facility] Address: [address] [place] [address] Performed By: #### 1 9123-9, , 2776-08 ####GEOVANNA LABORATORYCLIA [id number] [place] [address] [place] Protein [Mass/Vol] 6.1 g/dL Low 6.3-8.0 [facility] Comment on above: Order Comment: Demarcusi daniela Type: BLOOD SPECIMENOrdering Facility: [facility] Address: [address] [place] [address] Performed By: #### 1 9123-9, , 2776-08 ####GEOVANNA LABORATORYCLIA [id number] [place] [id number] [place] Sodium [Moles/Vol] 139 mmol/L Normal 136-144 [facility] Comment on above: Order Comment: Demarcusi men Type: BLOOD SPECIMENOrdering Facility: [facility] Address: [address] [place] [address] Performed By: #### 1 9123-9, 90365-4, 2776- ####GEOVANNA LABORATORYCLIA [id number] [place] [id number] [place] Urea nitrogen [Mass/Vol] 30 mg/dL High 9-24 [facility] Comment on above: Order Comment: Speci men Type: BLOOD SPECIMENOrdering Facility: [facility] Address: [place] [address] Performed By: #### 1 9123-9, 94062-5, 2777-1 ####[facility] LABORATORYCLIA [id number] [place] [id number] [place] Magnesium SerPl-ncon 08-15 Magnesium [Mass/Vol] 1.9 mg/dL Normal 1.7-2.3 [facility] Comment on above: Order Comment: Speci men Type: BLOOD SPECIMENOrdering Facility: [facility] Address: [place] [address] Performed By: #### 1 9123-9, 72190-7, 2777-1 ####[facility]CL[facility] V[facility] LABORATORYCLIA [id number] [place] [address] [place] NURSING PROGon 08-15-2023 NURSING PROG Normal [facility] NUTRITIONon 08-15-2023 NUTRITION Normal [facility] Phosphate SerPl-mCncon 08-15 Phosphate [Mass/Vol] 2.5 mg/dL Low 2.7-4.8 [facility] Comment on above: Order Comment: Speci men Type: BLOOD SPECIMENOrdering Facility: [facility] Address: [place] [address] Performed By: #### 1 9123-9, 73384-1, 2777-1 ####[facility]CL[facility] LABORATORYCLIA [id number] [place] [id number] [place] XR ABDOMEN 1V SUPINEon 08-15 XR ABDOMEN 1V SUPINE Normal [facility] ANES POSTPROC EVALon 023 ANES POSTPROC EVAL Normal [facility] ANES PRE-OPon 08-14-2023 ANES PRE-OP Normal [facility] CASE MANAGEMon 08-14-2023 CASE MANAGEM Normal [facility] CNCOon 08-14-2023 CNCO Letter Text Normal [facility] 2000 panelon 08-14-2023 Albumin [Mass/Vol] 3.2 g/dL Low 3.9-4.9 [facility] Comment on above: Order Comment: Speci men Type: BLOOD SPECIMENOrdering Facility: [facility] Address: [address] [place] [address] Performed By: #### 2 4323-8, 45436-6, 2776-08 ####[facility] LABORATORYCLIA [id number] [place] [id number] [place] ALP [Catalytic activity/Vol] 122 U/L High 38-113 [facility] Comment on above: Order Comment: Speci men Type: BLOOD SPECIMENOrdering Facility: [facility] Address: [address] [place] [address] Performed By: #### 2 4323-8, , 2776-08 ####[facility] LABORATORYCLIA [id number] [place] [address] [place] ALT [Catalytic activity/Vol] 19 U/L Normal 10-54 [facility] Comment on above: Order Comment: Speci men Type: BLOOD SPECIMENOrdering Facility: [facility] Address: [address] [place] [address] Performed By: #### 2 4323-8, , 2776-08 ####[facility] LABORATORYCLIA [id number] [place] [id number] [place] Anion gap [Moles/Vol] 13 mmol/L Normal 9-18 [facility] Comment on above: Order Comment: Speci men Type: BLOOD SPECIMENOrdering Facility: [facility] Address: [address] [place] [address] Performed By: #### 2 4323-8, , 2776-08 ####[facility] LABORATORYCLIA [id number] [place] [id number] [place] AST [Catalytic activity/Vol] 26 U/L Normal 14-40 [facility] Comment on above: Order Comment: Speci men Type: BLOOD SPECIMENOrdering Facility: [facility] Address: [address] [place] [address] Performed By: #### 2 4323-8, , 2776-08 ####GEOVANNA LABORATORYCLIA [id number] [place] [address] [place] Bilirubin [Mass/Vol] 1.0 mg/dL Normal 0.2-1.3 [facility] Comment on above: Order Comment: Speci men Type: BLOOD SPECIMENOrdering Facility: [facility] Address: [address] [place] [id number] Performed By: #### 2 4322-8, , 2776-08 ####GEOVANNA LABORATORYCLIA [id number] [place] [id number] [place] Calcium [Mass/Vol] 9.0 mg/dL Normal 8.5-10.2 [facility] Comment on above: Order Comment: Speci men Type: BLOOD SPECIMENOrdering Facility: [facility] Address: [address] [place] [address] Performed By: #### 2 4328, , 2776-08 ####[facility] LABORATORYCLIA [id number] [place] [id number] [place] Chloride [Moles/Vol] 100 mmol/L Normal 97-105 [facility] Comment on above: Order Comment: Speci men Type: BLOOD SPECIMENOrdering Facility: [facility] Address: [address] [place] [id number] Performed By: #### 2 4322-8, , 2776-08 ####GEOVANNA LABORATORYCLIA [id number] [place] [address] [place] CO2 [Moles/Vol] 26 mmol/L Normal 22-30 [facility] Comment on above: Order Comment: Speci men Type: BLOOD SPECIMENOrdering Facility: [facility] Address: [address] [address] Performed By: #### 2 4323-8, , 2776-08 ####GEOVANNA LABORATORYCLIA [id number] [place] [address] [place] Creatinine [Mass/Vol] 1.12 mg/dL Normal 0.73-1.22 [facility] Comment on above: Order Comment: Arben suarez Type: BLOOD SPECIMENOrdering Facility: [facility] Address: [address] [place] [address] Performed By: #### 2 4323-8, 71105-3, 2776-08 ####GEOVANNA LABORATORYCLIA [id number] [place] [id number] [place] Creatinine and Glomerular filtration rate.predicted panel (S/P/Bld) 72 mL/min/1.73m??? Normal >=60 [facility] Comment on above: Order Comment: Arben suarez Type: BLOOD SPECIMENOrdering Facility: [facility] Address: [address] [place] [address] Result Comment: Bailey mated Glomerular Filtration Rate [...] #### 2 4323-8, , 2776-08 ####GEOVANNA LABORATORYCLIA [id number] [place] [id number] [place] Glucose [Mass/Vol] 127 mg/dL High 74-99 [facility] Comment on above: Order Comment: Arben suarez Type: BLOOD SPECIMENOrdering Facility: [facility] Address: [address] [place] [address] Result Comment: The [place] Diabetes [...] #### 2 4323-8, , 2776-08 ####GEOVANNA LABORATORYCLIA [id number] [place] [address] [place] Potassium [Moles/Vol] 4.1 mmol/L Normal 3.7-5.1 [facility] Comment on above: Order Comment: Speci men Type: BLOOD SPECIMENOrdering Facility: [facility] Address: [address] [place] [address] Performed By: #### 2 4323-8, , 2776-08 ####GEOVANNA LABORATORYCLIA [id number] [place] [id number] [place] Protein [Mass/Vol] 6.6 g/dL Normal 6.3-8.0 [facility] Comment on above: Order Comment: Speci men Type: BLOOD SPECIMENOrdering Facility: [facility] Address: [address] [place] [address] Performed By: #### 2 4323-8, , 2776-08 ####GEOVANNA LABORATORYCLIA [id number] [place] [id number] [place] Sodium [Moles/Vol] 139 mmol/L Normal 136-144 [facility] Comment on above: Order Comment: Speci men Type: BLOOD SPECIMENOrdering Facility: [facility] Address: [address] [place] [address] Performed By: #### 2 4323-8, , 2776-08 ####GEOVANNA LABORATORYCLIA [id number] [place] [address] [place] Urea nitrogen [Mass/Vol] 34 mg/dL High 9-24 [facility] Comment on above: Order Comment: Speci men Type: BLOOD SPECIMENOrdering Facility: [facility] Address: [address] [place] [address] Performed By: #### 2 4323-8, , 2776-08 ####GEOVANNA LABORATORYCLIA [id number] [place] [id number] [place] [facility] HISTORY PHYSICALon HISTORY PHYSICAL Normal [facility] Magnesium [Mass/Vol] 2.0 mg/dL Normal 1.7-2.3 [facility] Comment on above: Order Comment: Speci men Type: BLOOD SPECIMENOrdering Facility: [facility] Address: [address] [place] [id number] Performed By: #### 2 4323-8, 87818-1, 2777-1 ####[facility]CL[facility] LABORATORYCLIA [id number] [address] [place] NURSING PROGon 08-14-2023 NURSING PROG [facility] NURSING PROG [facility] NURSING PROG [facility] NUTRITIONon 08-14-2023 NUTRITION Normal [facility] Phosphate [Mass/Vol] 2.9 mg/dL Normal 2.7-4.8 [facility] Comment on above: Order Comment: Speci men Type: BLOOD SPECIMENOrdering Facility: [facility] Address: [place] [address] Performed By: #### 2 4323-8, 95245-4, 2777-1 ####[facility] LABORATORYCLIA [id number] [place] [id number] [place] Upper GI endoscopyon 023 Upper GI endoscopy Normal [facility] XR ABDOMEN 1V SUPINEon 08-14 XR ABDOMEN 1V SUPINE Normal [facility] XR ABDOMEN 1V SUPINE Normal [facility] ALLIED HEALTHon 08-13-2023 ALLIED HEALTH [facility] ANES POSTPROC EVALon 023 ANES POSTPROC EVAL Normal [facility] ANES PRE-OPon 08-13-2023 ANES PRE-OP [facility] CASE MANAGEMon 08-13-2023 CASE MANAGEM [facility] CNPNon 08-13-2023 CNPN Telephone ([id number]) -- AISHA JULIEN ([id number]) 1955 M Date Time Provider Department 08/13/23 ARISTEO CLEVELAND Shipley [id number] During your visit today, we recorded the following information about you: Jessie Zamora, LUCILLE 08/13/2023 10:25 AM Signed Call made to [facility] - patient employer to get [place] for him. Left a with Kindra. Gave her cell number to call back and/or fax number to fax paperwork. Jessie Zamora, LUCILLE 08/14/2023 9:14 AM Signed Kindra from [facility] returned call yesterday stating that she had [...] Date Reviewed: 08/13/2023 Reviewed by: Génesis Moore, RN - Fully Assessed Reason for Visit: [place] Paperwork [4185] Prescriptions as of 08/14/2023 - [...] NaCl 0.45% iv infusion - phenol 1 [place] (CHLORASEPTIC) - NaCl 0.9% iv flush bag [...] Status:Closed by JESSIE ZAMORA on 08/14/23 Normal [facility] CYTOLOGY NON-GYNon 3 ADEQUACY INTERPRETATION Normal [facility] Comment on above: Order Comment: Speci men Type: SPECIMEN OBTAINED BY ASPIRATIONOrdering Facility: [facility] Address: [address] [place] [address] Result Comment: A: # 1 Lymphoid sampleB: #1, 2 Lesional cells present. Monotonous cells could be low-grade neuroendocrine tumor.Dr. Dsouza / J. DiMarcoEach letter in the above intra-procedural assessment refers to a unique site. The specific site is indicated in the final diagnosis portion of the report. Each number in this assessment references a discrete evaluation episode.Intra-procedural assessment performed at [facility], [address] [place] [address] Performed By: #### C YTONON ####[facility] LABORATORYCLIA [id number] [address] CASE REPORT Normal [facility] Comment on above: Order Comment: Speci men Type: SPECIMEN OBTAINED BY ASPIRATIONOrdering Facility: [facility] Address: [address] [place] [address] Result Comment: [facility] Cytology Report Case: [id number] Provider: Stephanie Avery MD Collected: 08/13/2023 11:22 AMOrdering Location: [facility] Received: 08/13/2023 12:00 PM Endoscopy - ENDOPathologist: Darrius Dsouza MDSpecimens: A) - LYMPH NODE FINE NEEDLE ASPIRATION, PORTAL LYMPH NODE B) - PANCREAS FINE NEEDLE ASPIRATION, UNCINATE PROCESS Performed By: #### C YTONON ####[facility]CL[facility] LABORATORYCLIA [id number] [address] [place] CLINICAL HISTORY Weight loss Normal [facility] Comment on above: Order Comment: Speci men Type: SPECIMEN OBTAINED BY ASPIRATIONOrdering Facility: [facility] Address: [address] [place] [address] Result Comment: Lupillo kenny outlet obstructionTachycardiaHypomagnesemiaAKI Performed By: #### C YTONON ####[facility] LABORATORYCLIA [id number] [address] [place] DIAGNOSIS COMMENT Normal [facility] Comment on above: Order Comment: Speci men Type: SPECIMEN OBTAINED BY ASPIRATIONOrdering Facility: [facility] Address: [address] [place] [address] Result Comment: A. T he diagnostic neoplastic cells are predominantly found on the ThinPrep slide. The discrepancy between the RIVERA diagnosis of lymphoid sample and the final diagnosis was reported by secure staff message to Dr. Avery on 08/14/2023 at 1101.B. This part of the case was interpreted in conjunction with the related surgical pathology case [id number] with diagnostic concurrence. Performed By: #### C YTONON ####[facility] LABORATORYCLIA [id number] [place] [id number] [facility] FINAL DIAGNOSIS Normal [facility] Comment on above: Order Comment: Speci men Type: SPECIMEN OBTAINED BY ASPIRATIONOrdering Facility: [facility] Address: [address] [place] [address] Result Comment: A - LYMPH NODE FINE [...] Alcohol Fixed Performed By: #### C YTONON ####[facility] LABORATORYCLIA [id number] [address] FINAL PERFORMING LAB Normal [facility] Comment on above: Order Comment: Speci men Type: SPECIMEN OBTAINED BY ASPIRATIONOrdering Facility: [facility] Address: [address] [place] [address] Result Comment: Tech nical component, slide forming machine tender screening performed at [facility], [address] [place] [address] CLIA# [id number] interpretation performed at [facility], [address] [place] [address] CLIA# [id number] Director: Darrius Dsouza M.D. Performed By: #### C YTONON ####[facility] LABORATORYCLIA [id number] [place] [id number] [facility] GROSS DESCRIPTION Normal [facility] Comment on above: Order Comment: Speci men Type: SPECIMEN OBTAINED BY ASPIRATIONOrdering Facility: [facility] Address: [address] [place] [address] Result Comment: A. L YMPH NODE FINE NEEDLE [id number] cc clear pink CytoLyt with scant particles. ThinPrep and Cell Block prepared and 2 smears (1 air dried and 1 fixed).B. PANCREAS FINE NEEDLE [id number] cc clear colorless CytoLyt with scant particles. ThinPrep and Cell Block prepared and 4 smears (2 air dried and 2 fixed). Performed By: #### C ALIA ####[facility] LABORATORYCLIA [id number] [place] [id number] [place] Comprehensive metabolic 2000 panelon 08-13-2023 Albumin [Mass/Vol] 3.8 g/dL Low 3.9-4.9 [facility] Comment on above: Order Comment: Speci men Type: BLOOD SPECIMENOrdering Facility: [facility] Address: [address] [place] [address] Performed By: #### 1 9123-9, 76819-6, 2776- ####[facility] LABORATORYCLIA [id number] [place] [address] [place] ALP [Catalytic activity/Vol] 128 U/L High 38-113 [facility] Comment on above: Order Comment: Speci men Type: BLOOD SPECIMENOrdering Facility: [facility] Address: [address] [place] [address] Performed By: #### 1 9123-9, 88598-6, 2776- ####[facility] LABORATORYCLIA [id number] [address] [place] ALT [Catalytic activity/Vol] 19 U/L Normal 10-54 [facility] Comment on above: Order Comment: Speci men Type: BLOOD SPECIMENOrdering Facility: [facility] Address: [address] [place] [address] Performed By: #### 1 9123-9, 55427-2, 2776- ####[facility] LABORATORYCLIA [id number] [place] [address] [place] Anion gap [Moles/Vol] 12 mmol/L Normal 9-18 [facility] Comment on above: Order Comment: Speci men Type: BLOOD SPECIMENOrdering Facility: [facility] Address: [address] [place] [address] Performed By: #### 1 23-9, 55089-9, 2776- ####[facility] LABORATORYCLIA [id number] [place] [address] [place] AST [Catalytic activity/Vol] 22 U/L Normal 14-40 [facility] Comment on above: Order Comment: Speci men Type: BLOOD SPECIMENOrdering Facility: [facility] Address: [address] [address] Performed By: #### 1 23-9, 84447-6, 2776- ####[facility] LABORATORYCLIA [id number] [place] [address] [place] Bilirubin [Mass/Vol] 1.0 mg/dL Normal 0.2-1.3 [facility] Comment on above: Order Comment: Speci men Type: BLOOD SPECIMENOrdering Facility: [facility] Address: [address] [place] [address] Performed By: #### 1 23-9, , 2776-08 ####[facility] LABORATORYCLIA [id number] [place] [address] [place] Calcium [Mass/Vol] 9.5 mg/dL Normal 8.5-10.2 [facility] Comment on above: Order Comment: Speci men Type: BLOOD SPECIMENOrdering Facility: [facility] Address: [address] [address] Performed By: #### 1 23-9, , 2776-08 ####[facility] LABORATORYCLIA [id number] [place] [id number] [place] Chloride [Moles/Vol] 95 mmol/L Low 97-105 [facility] Comment on above: Order Comment: Speci men Type: BLOOD SPECIMENOrdering Facility: [facility] Address: [address] [place] [address] Performed By: #### 1 9123-9, 76682-8, 2776- ####[facility] LABORATORYCLIA [id number] [place] [id number] [place] CO2 [Moles/Vol] 29 mmol/L Normal 22-30 [facility] Comment on above: Order Comment: Speci men Type: BLOOD SPECIMENOrdering Facility: [facility] Address: [address] [place] [address] Performed By: #### 1 9123-9, 29585-1, 2776-08 ####[facility] LABORATORYCLIA [id number] [place] [id number] [place] Creatinine [Mass/Vol] 1.19 mg/dL Normal 0.73-1.22 [facility] Comment on above: Order Comment: Demarcusi men Type: BLOOD SPECIMENOrdering Facility: [facility] Address: [address] [place] [address] Performed By: #### 1 9123-9, 04939-2, 2776-08 ####[facility] LABORATORYCLIA [id number] [place] [address] [place] Creatinine and Glomerular filtration rate.predicted panel (S/P/Bld) 67 mL/min/1.73m??? Normal >=60 [facility] Comment on above: Order Comment: Speci men Type: BLOOD SPECIMENOrdering Facility: [facility] Address: [place] [address] Result Comment: Bailey mated Glomerular Filtration Rate [...] actual GFR. Performed By: #### 1 9123-9, 18767-5, 2776-08 ####[facility] LABORATORYCLIA [id number] [place] [id number] [place] Glucose [Mass/Vol] 124 mg/dL High 74-99 [facility] Comment on above: Order Comment: Speci daniela Type: BLOOD SPECIMENOrdering Facility: [facility] Address: [address] [place] [address] Result Comment: The [place] Diabetes [...] 2016.39(Suppl 1). Performed By: #### 1 9123-9, 16599-4, 2776-08 ####[facility] LABORATORYCLIA [id number] [place] [address] [place] Potassium [Moles/Vol] 3.5 mmol/L Low 3.7-5.1 [facility] Comment on above: Order Comment: Speci men Type: BLOOD SPECIMENOrdering Facility: [facility] Address: [address] [place] [address] Performed By: #### 1 9123-9, , 2776-08 ####[facility] LABORATORYCLIA [id number] [place] [address] [place] Protein [Mass/Vol] 7.6 g/dL Normal 6.3-8.0 [facility] Comment on above: Order Comment: Speci men Type: BLOOD SPECIMENOrdering Facility: [facility] Address: [address] [place] [address] Performed By: #### 1 9123-9, , 2776-08 ####[facility] LABORATORYCLIA [id number] [place] [id number] [place] Sodium [Moles/Vol] 136 mmol/L Normal 136-144 [facility] Comment on above: Order Comment: Speci men Type: BLOOD SPECIMENOrdering Facility: [facility] Address: [address] [place] [address] Performed By: #### 1 9123-9, , 2777-1 ####[facility] LABORATORYCLIA [id number] [place] [id number] [place] Urea nitrogen [Mass/Vol] 37 mg/dL High 9- [facility] Comment on above: Order Comment: Speci men Type: BLOOD SPECIMENOrdering Facility: [facility] Address: [place] [address] Performed By: #### 1 9123-9, 53224-3, 2777-1 ####[facility] LABORATORYCLIA [id number] [place] [id number] [place] HISTORY PHYSICALon HISTORY PHYSICAL Normal [facility] Magnesium SerPl-ncon 08-13 Magnesium [Mass/Vol] 2.2 mg/dL Normal 1.7-2.3 [facility] Comment on above: Order Comment: Speci men Type: BLOOD SPECIMENOrdering Facility: [facility] Address: [place] [address] Performed By: #### 1 9123-9, 09667-2, 2777-1 ####[facility] LABORATORYCLIA [id number] [place] [id number] [place] NURSING PROGon 08-13-2023 NURSING PROG Normal [facility] NURSING PROG Normal [facility] NURSING PROG Normal [facility] NUTRITIONon 08-13-2023 NUTRITION Normal [facility] Phosphate SerPl-ncon 08-13 Phosphate [Mass/Vol] 3.2 mg/dL Normal 2.7-4.8 [facility] Comment on above: Order Comment: Speci men Type: BLOOD SPECIMENOrdering Facility: [facility] Address: [place] [address] Performed By: #### 1 9123-9, 88743-5, 2777-1 ####[facility] LABORATORYCLIA [id number] [place] [id number] [place] SURGICAL PATHOLOGYon 023 CASE REPORT Normal [facility] Comment on above: Order Comment: Speci men Type: TISSUE SPECIMENOrdering Facility: [facility] Address: [address] [place] [address] Result Comment: Surg ical Pathology Report Case: [id number] Provider: Stephanie Avery MD Collected: 08/13/2023 11:14 AMOrdering Location: [facility] Received: 08/13/2023 01:36 PM Endoscopy - ENDOPathologist: Robby Jorgensen MD, PhDSpecimens: A) - PANCREAS BIOPSY, core needle biopsy of uncinate process to r/o neuro endocrine tumor B) - LYMPH NODE BIOPSY, core needle biopsy of portal lymph node Performed By: #### S ####[facility] LABCLIA [id number] [address] [place] DIAGNOSIS COMMENT Normal [facility] Comment on above: Order Comment: Speci men Type: TISSUE SPECIMENOrdering Facility: [facility] Address: [address] [place] [address] Result Comment: Manny romo Developed Test (LDT) Disclaimer:Performance characteristics of immunohistochemical, immunofluorescent and chromogenic in-situ hybridization tests have been determined by the performing laboratory within [facility]???s Andreas Ramos [facility] Pathology and Laboratory Medicine [place] ([facility], [facility], [facility], [facility], [facility], [facility] Hospital, or [facility]) in a manner consistent with CLIA requirements. One or more of these tests have not been cleared or approved by the FDA. [facility] is regulated under CLIA as qualified to perform high-complexity testing. These tests are used for clinical purposes. They should not be regarded as investigational or for research. Positive and negative controls stain appropriately. 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 Lymph node, biopsy:-Predominantly hemorrhage admixed with some lymphoid tissue and smooth muscle.-No evidence of neoplasm in this material. Performed By: #### S ####[facility] LABCLIA [id number] [place] [address] [place] FINAL PERFORMING LAB Normal [facility] Comment on above: Order Comment: Speci men Type: TISSUE SPECIMENOrdering Facility: [facility] Address: [address] [place] [address] Result Comment: Diag nostic interpretation performed at [facility], [facility] [place] [address] CLIA# [id number] Director: Taras Treadwell M.D. Performed By: #### S ####[facility] LABCLIA [id number] [place] [address] [place] GROSS DESCRIPTION Normal [facility] Comment on above: Order Comment: Speci men Type: TISSUE SPECIMENOrdering Facility: [facility] Address: [address] [place] [address] Result Comment: A. P ANCREAS BIOPSYReceived in [...] submitted in one cassette.Gross examination performed at [facility], [address] [place] [address].AMS August 13, 2023 6:15 PM Performed By: #### S ####[facility] LABCLIA [id number] [place] [address] [place] Upper EUSon 08-13-2023 Upper EUS Normal [facility] XR ABDOMEN 1V SUPINEon 08-13 XR ABDOMEN 1V SUPINE Normal [facility] Bilirub Conj SerPl-mCncon Bilirubin.conjugated [Mass/Vol] 0.4 mg/dL High <0.2 [facility] Comment on above: Order Comment: Speci men Type: BLOOD SPECIMENOrdering Facility: [facility] Address: [place] [address] Performed By: #### 1 5152-2, 57189-4, 2571-8, 90484-1 ####[facility]ORATORYCLIA [id number] [place] [id number] [facility] CASE MANAGEMon 08-12-2023 CASE MANAGEM Normal [facility] CBC panel Auto (Bld)on 08-12 Erythrocyte distribution width (RBC) [Ratio] 11.9 % Normal 11.5-15.0 [facility] Comment on above: Order Comment: Speci men Type: BLOOD SPECIMENOrdering Facility: [facility] Address: [place] [address] Performed By: #### 5 8410-2 ####[facility] LABORATORYCLIA [id number] [place] [id number] [place] Hematocrit (Bld) [Volume fraction] 44.8 % Normal 39.0-51.0 [facility] Comment on above: Order Comment: Speci men Type: BLOOD SPECIMENOrdering Facility: [facility] Address: [place] [address] Performed By: #### 5 8410-2 ####[facility] LABORATORYCLIA [id number] [place] [id number] [place] Hemoglobin (Bld) [Mass/Vol] 14.9 g/dL Normal 13.0-17.0 [facility] Comment on above: Order Comment: Speci men Type: BLOOD SPECIMENOrdering Facility: [facility] Address: [address] [place] [address] Performed By: #### 5 8410-2 ####[facility] LABORATORYCLIA [id number] [place] [id number] [place] MCH (RBC) [Entitic mass] 29.2 pg Normal 26.0-34.0 [facility] Comment on above: Order Comment: Speci men Type: BLOOD SPECIMENOrdering Facility: [facility] Address: [address] [place] [address] Performed By: #### 5 8410-2 ####[facility] LABORATORYCLIA [id number] [address] [place] MCHC (RBC) [Mass/Vol] 33.3 g/dL Normal 30.5-36.0 [facility] Comment on above: Order Comment: Speci men Type: BLOOD SPECIMENOrdering Facility: [facility] Address: [address] [place] [address] Performed By: #### 5 8410-2 ####[facility] LABORATORYCLIA [id number] [place] [address] [place] MCV (RBC) [Entitic vol] 87.7 fL Normal 80.0-100.0 [facility] Comment on above: Order Comment: Speci men Type: BLOOD SPECIMENOrdering Facility: [facility] Address: [address] [place] [address] Performed By: #### 5 8410-2 ####[facility] LABORATORYCLIA [id number] [place] [address] [place] Nucleated RBC (Bld) [#/Vol] 10*3/uL Normal <0.01 [facility] Comment on above: Order Comment: Speci men Type: BLOOD SPECIMENOrdering Facility: [facility] Address: [address] [place] [address] Performed By: #### 5 8410-2 ####[facility] LABORATORYCLIA [id number] [address] [place] Platelet mean volume (Bld) [Entitic vol] 11.2 fL Normal 9.0-12.7 [facility] Comment on above: Order Comment: Speci men Type: BLOOD SPECIMENOrdering Facility: [facility] Address: [address] [place] [address] Performed By: #### 5 8410-2 ####[facility] LABORATORYCLIA [id number] [place] [id number] [place] Platelets (Bld) [#/Vol] 273 10*3/uL Normal 150-400 [facility] Comment on above: Order Comment: Speci men Type: BLOOD SPECIMENOrdering Facility: [facility] Address: [address] [place] [address] Performed By: #### 5 8410-2 ####[facility]ORATORYCLIA [id number] [place] [id number] [place] RBC (Bld) [#/Vol] 5.11 10*6/uL Normal 4.20-6.00 [facility] Comment on above: Order Comment: Speci men Type: BLOOD SPECIMENOrdering Facility: [facility] Address: [address] [place] [address] Performed By: #### 5 8410-2 ####[facility]ORATORYCLIA [id number] [place] [address] [place] WBC (Bld) [#/Vol] 11.13 10*3/uL High 3.70-11.00 [facility] Comment on above: Order Comment: Speci men Type: BLOOD SPECIMENOrdering Facility: [facility] Address: [address] [place] [address] Performed By: #### 5 8410-2 ####[facility] LABORATORYCLIA [id number] [place] [id number] [place] Comprehensive metabolic 2000 panelon 08-12-2023 Albumin [Mass/Vol] 3.7 g/dL Low 3.9-4.9 [facility] Comment on above: Order Comment: Speci men Type: BLOOD SPECIMENOrdering Facility: [facility] Address: [address] [place] [address] Performed By: #### 1 5152-2, 58584-8, 2571-8, 39097-4 ####[facility]ORATORYCLIA [id number] [place] [id number] [place] ALP [Catalytic activity/Vol] 124 U/L High 38-113 [facility] Comment on above: Order Comment: Speci men Type: BLOOD SPECIMENOrdering Facility: [facility] Address: [address] [place], [place] [address] [address] Performed By: #### 1 5152-2, 27574-5, 257-8, 01924-3 ####[facility] LABORATORYCLIA [id number] [place] [address] [place] ALT [Catalytic activity/Vol] 19 U/L Normal 10-54 [facility] Comment on above: Order Comment: Speci men Type: BLOOD SPECIMENOrdering Facility: [facility] Address: [address] [facility] [place] [address] Performed By: #### 1 5152-2, 31124-4, 2570-8, 50224-4 ####[facility] LABORATORYCLIA [id number] [place] [id number] [place] Anion gap [Moles/Vol] 15 mmol/L Normal 9-18 [facility] Comment on above: Order Comment: Speci men Type: BLOOD SPECIMENOrdering Facility: [facility] Address: [address] [place] [address] Performed By: #### 1 5152-2, 21176-7, 2570-8, 95764-7 ####[facility] LABORATORYCLIA [id number] [place] [id number] [place] AST [Catalytic activity/Vol] 22 U/L Normal 14-40 [facility] Comment on above: Order Comment: Speci men Type: BLOOD SPECIMENOrdering Facility: [facility] Address: [address] [facility] [place] [address] Performed By: #### 1 5152-2, 10093-3, 2570-8, 08372-1 ####[facility] LABORATORYCLIA [id number] [place] [address] [place] Bilirubin [Mass/Vol] 1.1 mg/dL Normal 0.2-1.3 [facility] Comment on above: Order Comment: Speci men Type: BLOOD SPECIMENOrdering Facility: [facility] Address: [address] [place] [address] Performed By: #### 1 5152-2, 03096-6, 2570-8, 18207-4 ####[facility]ORATORYCLIA [id number] [place] [address] [place] Calcium [Mass/Vol] 9.6 mg/dL Normal 8.5-10.2 [facility] Comment on above: Order Comment: Speci men Type: BLOOD SPECIMENOrdering Facility: [facility] Address: [address] [place] [address] Performed By: #### 1 5152-2, 16737-8, 8, 09759-8 ####[facility]ORATORYCLIA [id number] [place] [id number] [place] Chloride [Moles/Vol] 96 mmol/L Low 97-105 [facility] Comment on above: Order Comment: Speci men Type: BLOOD SPECIMENOrdering Facility: [facility] Address: [address] [place] [address] Performed By: #### 1 5152-2, , 2571-03, 14005-7 ####[facility] LABORATORYCLIA [id number] [place] [id number] [place] CO2 [Moles/Vol] 26 mmol/L Normal 22-30 [facility] Comment on above: Order Comment: Speci men Type: BLOOD SPECIMENOrdering Facility: [facility] Address: [address] [place] [address] Performed By: #### 1 5152-2, 60334-3, 8, 90550-6 ####[facility]ORATORYCLIA [id number] [place] [id number] [place] Creatinine [Mass/Vol] 1.28 mg/dL High 0.73-1.22 [facility] Comment on above: Order Comment: Speci men Type: BLOOD SPECIMENOrdering Facility: [facility] Address: [address] [place] [address] Performed By: #### 1 5152-2, 92151-9, 2570-8, 46174-1 ####[facility]ORATORYCLIA [id number] [place] [id number] [place] Creatinine and Glomerular filtration rate.predicted panel (S/P/Bld) 61 mL/min/1.73m??? Normal >=60 [facility] Comment on above: Order Comment: Arben suarez Type: BLOOD SPECIMENOrdering Facility: [facility] Address: [address] [place] [address] Result Comment: Bailey mated Glomerular Filtration Rate [...] actual GFR. Performed By: #### 1 5152-2, 36629-5, 2571-03, ####[facility]ORATORYCLIA [id number] [place] [address] [place] Glucose [Mass/Vol] 110 mg/dL High 74-99 [facility] Comment on above: Order Comment: Arben suarez Type: BLOOD SPECIMENOrdering Facility: [facility] Address: [address] [place] [address] Result Comment: The [place] Diabetes [...] 2016.39(Suppl 1). Performed By: #### 1 5152-2, 54878-4, 2571-03, ####[facility] LABORATORYCLIA [id number] [place] [id number] [place] Potassium [Moles/Vol] 3.7 mmol/L Normal 3.7-5.1 [facility] Comment on above: Order Comment: Speci men Type: BLOOD SPECIMENOrdering Facility: [facility] Address: [address] [place] [address] Performed By: #### 1 5152-2, 04613-0, 8, 63002-6 ####[facility] LABORATORYCLIA [id number] [place] [address] [place] Protein [Mass/Vol] 7.8 g/dL Normal 6.3-8.0 [facility] Comment on above: Order Comment: Speci men Type: BLOOD SPECIMENOrdering Facility: [facility] Address: [address] [place] [address] Performed By: #### 1 5152-2, , 2571-03, 31796-8 ####[facility] LABORATORYCLIA [id number] [place] [address] [place] Sodium [Moles/Vol] 137 mmol/L Normal 136-144 [facility] Comment on above: Order Comment: Speci men Type: BLOOD SPECIMENOrdering Facility: [facility] Address: [address] [place] [address] Performed By: #### 1 5152-2, , 2571-03, 77686-4 ####[facility] LABORATORYCLIA [id number] [place] [id number] [place] Urea nitrogen [Mass/Vol] 35 mg/dL High 9-24 [facility] Comment on above: Order Comment: Speci men Type: BLOOD SPECIMENOrdering Facility: [facility] Address: [address] [place] [address] Performed By: #### 1 5152-2, 68915-4, 8, 79238-1 ####[facility] LABORATORYCLIA [id number] [place] [id number] [place] Magnesium SerPl-mCncon 08-12 Magnesium [Mass/Vol] 2.1 mg/dL Normal 1.7-2.3 [facility] Comment on above: Order Comment: Speci men Type: BLOOD SPECIMENOrdering Facility: [facility] Address: [address] [place] [address] Performed By: #### 1 5152-2, 02486-1, 2570-8, 35016-5 ####[facility]ORATORYCLIA [id number] [place] [id number] [facility] NURSING PROGon 08-12-2023 NURSING PROG Normal [facility] NUTRITIONon 08-12-2023 NUTRITION Normal [facility] Phosphate SerPl-mCncon 08-12 Phosphate [Mass/Vol] 3.2 mg/dL Normal 2.7-4.8 [facility] Comment on above: Order Comment: Speci men Type: BLOOD SPECIMENOrdering Facility: [facility] Address: [address] [place] [address] Performed By: #### 2 777-1 ####[facility] LABORATORYCLIA [id number] [place] [id number] [facility] Trigl SerPl-ncon Triglyceride [Mass/Vol] 69 mg/dL Normal <150 [facility] Comment on above: Order Comment: Speci men Type: BLOOD SPECIMENOrdering Facility: [facility] Address: [place] [address] Result Comment: <150 mg/dL, Normal 150-199 mg/dL, Borderline high 200-499 mg/dL, High>499 mg/dL, Very highReference:1. National Cholesterol Education Program ATP III Guideline At-A-Glance Quick Desk Reference: National Heart, Lung, and Blood Leadore. National Institutes of Health. 2001: NIH Publication No. 01-3305. Performed By: #### 1 5152-2, 22398-0, 8, 19631-8 ####[facility] LABORATORYCLIA [id number] [place] [id number] [facility] Triglyceride [Mass/Vol]on FASTING TIME 0 hrs Normal [facility] Comment on above: Order Comment: Speci men Type: BLOOD SPECIMENOrdering Facility: [facility] Address: [address] [place] [address] Performed By: #### 1 5152-2, 74695-5, 2571-03, 46305-4 ####[facility]ORATORYCLIA [id number] [place] [address] [facility] [place] CASE MANAGEMon 08-11-2023 CASE MANAGEM Normal [facility] CRP SerPl-mCncon 08-11-2023 CRP [Mass/Vol] 4.0 mg/dL High <0.9 [facility] Comment on above: Order Comment: Speci men Type: BLOOD SPECIMENOrdering Facility: [facility] Address: [address] [place] [address] Performed By: #### 2 4323-03, 1987-12, 2776-08, ####[facility]ORATORYCLIA [id number] [place] [id number] [facility] [place] Comprehensive metabolic 2000 panelon 08-11-2023 Albumin [Mass/Vol] 3.8 g/dL Low 3.9-4.9 [facility] Comment on above: Order Comment: Speci men Type: BLOOD SPECIMENOrdering Facility: [facility] Address: [place] [address] Performed By: #### 2 8, 1987-12, 2776-08, ####[facility]ORATORYCLIA [id number] [place] [id number] [place] ALP [Catalytic activity/Vol] 107 U/L Normal 38-113 [facility] Comment on above: Order Comment: Speci men Type: BLOOD SPECIMENOrdering Facility: [facility] Address: [place] [address] Performed By: #### 2 8, 1987-12, 2776-08, ####[facility]ORATORYCLIA [id number] [place] [address] [place] ALT [Catalytic activity/Vol] 17 U/L Normal 10-54 [facility] Comment on above: Order Comment: Speci men Type: BLOOD SPECIMENOrdering Facility: [facility] Address: [place] [address] Performed By: #### 2 8, 1987-12, 2776-08, ####[facility]ORATORYCLIA [id number] [place] [address] [place] Anion gap [Moles/Vol] 16 mmol/L Normal 9-18 [facility] Comment on above: Order Comment: Speci men Type: BLOOD SPECIMENOrdering Facility: [facility] Address: [address] [place] [address] Performed By: #### 2 4328, 1987-12, 2776-08, ####[facility] LABORATORYCLIA [id number] [place] [address] [place] AST [Catalytic activity/Vol] 15 U/L Normal 14-40 [facility] Comment on above: Order Comment: Speci men Type: BLOOD SPECIMENOrdering Facility: [facility] Address: [address] [place] [address] Performed By: #### 2 4328, 1987-12, 2776-08, ####[facility]ORATORYCLIA [id number] [place] [id number] [place] Bilirubin [Mass/Vol] 1.0 mg/dL Normal 0.2-1.3 [facility] Comment on above: Order Comment: Speci men Type: BLOOD SPECIMENOrdering Facility: [facility] Address: [address] [place] [address] Performed By: #### 2 4328, 1987-12, 2776-08, ####[facility] LABORATORYCLIA [id number] [place] [address] [place] Calcium [Mass/Vol] 9.4 mg/dL Normal 8.5-10.2 [facility] Comment on above: Order Comment: Speci men Type: BLOOD SPECIMENOrdering Facility: [facility] Address: [address] [place] [address] Performed By: #### 2 4328, 1987-12, 2776-08, ####[facility]ORATORYCLIA [id number] [place] [address] [place] Chloride [Moles/Vol] 100 mmol/L Normal 97-105 [facility] Comment on above: Order Comment: Speci men Type: BLOOD SPECIMENOrdering Facility: [facility] Address: [address] [place] [address] Performed By: #### 2 4323-8, 1987-12, 2776-08, ####[facility]ORATORYCLIA [id number] [place] [address] [place] CO2 [Moles/Vol] 25 mmol/L Normal 22-30 [facility] Comment on above: Order Comment: Speci men Type: BLOOD SPECIMENOrdering Facility: [facility] Address: [address] [place] [address] Performed By: #### 2 43238, 1987-12, 2776-08, ####[facility] LABORATORYCLIA [id number] [place] [id number] [place] Creatinine [Mass/Vol] 1.38 mg/dL High 0.73-1.22 [facility] Comment on above: Order Comment: Speci men Type: BLOOD SPECIMENOrdering Facility: [facility] Address: [address] [place] [address] Performed By: #### 2 4323-8, 1987-12, 2776-08, ####[facility]ORATORYCLIA [id number] [place] [id number] [place] Creatinine and Glomerular filtration rate.predicted panel (S/P/Bld) 56 mL/min/1.73m??? Low >=60 [facility] Comment on above: Order Comment: Speci men Type: BLOOD SPECIMENOrdering Facility: [facility] Address: [address] [place] [address] Result Comment: Bailey mated Glomerular Filtration Rate [...] Performed By: #### 2 4323, 1987-12, 2776-08, ####[facility] LABORATORYCLIA [id number] [place] [address] [place] Glucose [Mass/Vol] 123 mg/dL High 74-99 [facility] Comment on above: Order Comment: Speci men Type: BLOOD SPECIMENOrdering Facility: [facility] Address: [place] [address] Result Comment: The [place] Diabetes [...] Care. 2016.39(Suppl 1). Performed By: #### 2 4323-03, 1987-12, 2776-08, ####[facility] LABORATORYCLIA [id number] [place] [id number] [place] Potassium [Moles/Vol] 3.3 mmol/L Low 3.7-5.1 [facility] Comment on above: Order Comment: Speci men Type: BLOOD SPECIMENOrdering Facility: [facility] Address: [place] [address] Performed By: #### 2 4323-03, 1987-12, 2776-08, ####[facility] LABORATORYCLIA [id number] [place] [id number] [place] Protein [Mass/Vol] 7.5 g/dL Normal 6.3-8.0 [facility] Comment on above: Order Comment: Speci men Type: BLOOD SPECIMENOrdering Facility: [facility] Address: [place] [address] Performed By: #### 2 4323-03, 1987-12, 2776-08, ####[facility]ORATORYCLIA [id number] [place] [address] [place] Sodium [Moles/Vol] 141 mmol/L Normal 136-144 [facility] Comment on above: Order Comment: Speci men Type: BLOOD SPECIMENOrdering Facility: [facility] Address: [address] [place], [place] [address] Performed By: #### 2 4323-03, 1987-12, 2776-08, ####[facility] LABORATORYCLIA [id number] [place] [address] [place] Urea nitrogen [Mass/Vol] 32 mg/dL High 9-24 [facility] Comment on above: Order Comment: Speci men Type: BLOOD SPECIMENOrdering Facility: [facility] Address: [address] [place], [place] [address] Performed By: #### 2 4323-03, 1987-12, 2776-08, ####[facility]ORATORYCLIA [id number] [place] [address] [place] Magnesium SerPl-ncon 08-11 Magnesium [Mass/Vol] 2.1 mg/dL Normal 1.7-2.3 [facility] Comment on above: Order Comment: Speci men Type: BLOOD SPECIMENOrdering Facility: [facility] Address: [address] [place], [place] [address] Performed By: #### 2 4323-03, 1987-12, 2776-08, ####[facility] LABORATORYCLIA [id number] [place] [address] [place] NUTRITIONon 08-11-2023 NUTRITION Normal [facility] Phosphate SerPl-mCncon 08-11 Phosphate [Mass/Vol] 3.9 mg/dL Normal 2.7-4.8 [facility] Comment on above: Order Comment: Speci men Type: BLOOD SPECIMENOrdering Facility: [facility] Address: [address] [place] [address] Performed By: #### 2 4323-03, 1987-12, 2776-08, 31524-8 ####[facility] LABORATORYCLIA [id number] [place] [id number] [place] CBC W Auto Differential pane l (Bld)on 08-10-2023 Basophils (Bld) [#/Vol] 0.04 10*3/uL Normal <0.11 [facility] Comment on above: Order Comment: Speci men Type: BLOOD SPECIMENOrdering Facility: [facility] Address: [address] [place] [address] Performed By: #### 5 7021-8 ####[facility] LABORATORYCLIA [id number] [place] [id number] [place] Basophils/100 WBC (Bld) 0.4 % Normal [facility] Comment on above: Order Comment: Speci men Type: BLOOD SPECIMENOrdering Facility: [facility] Address: [address] [place] [address] Performed By: #### 5 7021-8 ####[facility] LABORATORYCLIA [id number] [place] [address] [place] Differential cell count method Nom (Bld) Auto Normal [facility] Comment on above: Order Comment: Speci men Type: BLOOD SPECIMENOrdering Facility: [facility] Address: [address] [place] [address] Performed By: #### 5 7021-8 ####[facility] LABORATORYCLIA [id number] [place] [id number] [place] Eosinophils (Bld) [#/Vol] 0.21 10*3/uL Normal <0.46 [facility] Comment on above: Order Comment: Speci men Type: BLOOD SPECIMENOrdering Facility: [facility] Address: [address] [place] [address] Performed By: #### 5 7021-8 ####[facility] LABORATORYCLIA [id number] [address] [place] Eosinophils/100 WBC (Bld) 1.9 % Normal [facility] Comment on above: Order Comment: Speci men Type: BLOOD SPECIMENOrdering Facility: [facility] Address: [address] [place] [address] Performed By: #### 5 7021-8 ####[facility] LABORATORYCLIA [id number] [place] [address] [place] Erythrocyte distribution width (RBC) [Ratio] 12.1 % Normal 11.5-15.0 [facility] Comment on above: Order Comment: Speci men Type: BLOOD SPECIMENOrdering Facility: [facility] Address: [address] [place] [address] Performed By: #### 5 7021-8 ####[facility] LABORATORYCLIA [id number] [place] [address] [place] Hematocrit (Bld) [Volume fraction] 41.9 % Normal 39.0-51.0 [facility] Comment on above: Order Comment: Speci men Type: BLOOD SPECIMENOrdering Facility: [facility] Address: [address] [place] [address] Performed By: #### 5 7021-8 ####[facility] LABORATORYCLIA [id number] [place] [address] [place] Hemoglobin (Bld) [Mass/Vol] 14.3 g/dL Normal 13.0-17.0 [facility] Comment on above: Order Comment: Speci men Type: BLOOD SPECIMENOrdering Facility: [facility] Address: [address] [place] [address] Performed By: #### 5 7021-8 ####[facility] LABORATORYCLIA [id number] [place] [address] [place] Immature granulocytes (Bld) [#/Vol] 0.05 10*3/uL Normal <0.10 [facility] Comment on above: Order Comment: Speci men Type: BLOOD SPECIMENOrdering Facility: [facility] Address: [address] [place] [address] Performed By: #### 5 7021-8 ####[facility] LABORATORYCLIA [id number] [address] [place] Immature granulocytes/100 WBC (Bld) 0.4 % Normal [facility] Comment on above: Order Comment: Speci men Type: BLOOD SPECIMENOrdering Facility: [facility] Address: [address] [place] [address] Performed By: #### 5 7021-8 ####[facility] LABORATORYCLIA [id number] [place] [address] [place] Lymphocytes (Bld) [#/Vol] 0.93 10*3/uL Low 1.00-4.00 [facility] Comment on above: Order Comment: Speci men Type: BLOOD SPECIMENOrdering Facility: [facility] Address: [address] [place] [address] Performed By: #### 5 7021-8 ####[facility] LABORATORYCLIA [id number] [address] [place] Lymphocytes/100 WBC (Bld) 8.4 % Normal [facility] Comment on above: Order Comment: Speci men Type: BLOOD SPECIMENOrdering Facility: [facility] Address: [address] [place] [address] Performed By: #### 5 7021-8 ####[facility] LABORATORYCLIA [id number] [place] [address] [place] MCH (RBC) [Entitic mass] 29.9 pg Normal 26.0-34.0 [facility] Comment on above: Order Comment: Speci men Type: BLOOD SPECIMENOrdering Facility: [facility] Address: [address] [place] [address] Performed By: #### 5 7021-8 ####[facility] LABORATORYCLIA [id number] [place] [address] [place] MCHC (RBC) [Mass/Vol] 34.1 g/dL Normal 30.5-36.0 [facility] Comment on above: Order Comment: Speci men Type: BLOOD SPECIMENOrdering Facility: [facility] Address: [address] [place] [address] Performed By: #### 5 7021-8 ####[facility] LABORATORYCLIA [id number] [address] [place] MCV (RBC) [Entitic vol] 87.7 fL Normal 80.0-100.0 [facility] Comment on above: Order Comment: Speci men Type: BLOOD SPECIMENOrdering Facility: [facility] Address: [address] [place] [address] Performed By: #### 5 7021-8 ####[facility] LABORATORYCLIA [id number] [place] [id number] [place] Monocytes (Bld) [#/Vol] 1.28 10*3/uL High <0.87 [facility] Comment on above: Order Comment: Speci men Type: BLOOD SPECIMENOrdering Facility: [facility] Address: [address] [place] [address] Performed By: #### 5 7021-8 ####[facility]ORATORYCLIA [id number] [place] [id number] [place] Monocytes/100 WBC (Bld) 11.5 % Normal [facility] Comment on above: Order Comment: Speci men Type: BLOOD SPECIMENOrdering Facility: [facility] Address: [address] [place] [address] Performed By: #### 5 7021-8 ####[facility] LABORATORYCLIA [id number] [place] [id number] [place] Neutrophils (Bld) [#/Vol] 8.62 10*3/uL High 1.45-7.50 [facility] Comment on above: Order Comment: Speci men Type: BLOOD SPECIMENOrdering Facility: [facility] Address: [address] [place] [address] Performed By: #### 5 7021-8 ####[facility] LABORATORYCLIA [id number] [place] [id number] [place] Neutrophils/100 WBC (Bld) 77.4 % Normal [facility] Comment on above: Order Comment: Speci men Type: BLOOD SPECIMENOrdering Facility: [facility] Address: [address] [place] [address] Performed By: #### 5 7021-8 ####[facility] LABORATORYCLIA [id number] [place] [id number] [place] Nucleated RBC (Bld) [#/Vol] 10*3/uL Normal <0.01 [facility] Comment on above: Order Comment: Speci men Type: BLOOD SPECIMENOrdering Facility: [facility] Address: [address] [place] [address] Performed By: #### 5 7021-8 ####[facility]ATORYCLIA [id number] [place] [address] [place] Nucleated RBC/100 WBC (Bld) [Ratio] 0.0 /100 WBC Normal [facility] Comment on above: Order Comment: Speci men Type: BLOOD SPECIMENOrdering Facility: [facility] Address: [address] [place] [address] Performed By: #### 5 7021-8 ####[facility]ATORYCLIA [id number] [place] [address] [place] Platelet mean volume (Bld) [Entitic vol] 11.5 fL Normal 9.0-12.7 [facility] Comment on above: Order Comment: Speci men Type: BLOOD SPECIMENOrdering Facility: [facility] Address: [address] [place] [address] Performed By: #### 5 7021-8 ####[facility]ATORYCLIA [id number] [place] [address] [place] Platelets (Bld) [#/Vol] 285 10*3/uL Normal 150-400 [facility] Comment on above: Order Comment: Speci men Type: BLOOD SPECIMENOrdering Facility: [facility] Address: [address] [place] [address] Performed By: #### 5 7021-8 ####[facility]ORATORYCLIA [id number] [place] [id number] [place] RBC (Bld) [#/Vol] 4.78 10*6/uL Normal 4.20-6.00 [facility] Comment on above: Order Comment: Speci men Type: BLOOD SPECIMENOrdering Facility: [facility] Address: [address] [place] [address] Performed By: #### 5 7021-8 ####[facility]ATORYCLIA [id number] [place] [id number] [place] WBC (Bld) [#/Vol] 11.13 10*3/uL High 3.70-11.00 [facility] Comment on above: Order Comment: Speci men Type: BLOOD SPECIMENOrdering Facility: [facility] Address: [place] [address] Performed By: #### 5 7021-8 ####[facility]ORATORYCLIA [id number] [place] [id number] [place] Comprehensive metabolic 2000 panelon 08-10-2023 Albumin [Mass/Vol] 4.0 g/dL Normal 3.9-4.9 [facility] Comment on above: Order Comment: Speci men Type: BLOOD SPECIMENOrdering Facility: [facility] Address: [address] [place] [address] Performed By: #### 2 4323-8, , 2776-08 ####[facility]ORATORYCLIA [id number] [place] [address] [place] ALP [Catalytic activity/Vol] 111 U/L Normal 38-113 [facility] Comment on above: Order Comment: Speci men Type: BLOOD SPECIMENOrdering Facility: [facility] Address: [address] [place] [address] Performed By: #### 2 4323-8, , 2776-08 ####[facility]ORATORYCLIA [id number] [place] [id number] [place] ALT [Catalytic activity/Vol] 21 U/L Normal 10-54 [facility] Comment on above: Order Comment: Speci men Type: BLOOD SPECIMENOrdering Facility: [facility] Address: [address] [place] [address] Performed By: #### 2 4323-8, , 2776-08 ####[facility]ORATORYCLIA [id number] [place] [id number] [place] Anion gap [Moles/Vol] 15 mmol/L Normal 9-18 [facility] Comment on above: Order Comment: Speci men Type: BLOOD SPECIMENOrdering Facility: [facility] Address: [address] [facility] [place] [address] Performed By: #### 2 4323-8, , 2776-08 ####[facility] LABORATORYCLIA [id number] [place] [address] [place] AST [Catalytic activity/Vol] 16 U/L Normal 14-40 [facility] Comment on above: Order Comment: Speci men Type: BLOOD SPECIMENOrdering Facility: [facility] Address: [address] [place] [address] Performed By: #### 2 3-8, , 2776-08 ####[facility] LABORATORYCLIA [id number] [place] [id number] [place] Bilirubin [Mass/Vol] 0.7 mg/dL Normal 0.2-1.3 [facility] Comment on above: Order Comment: Speci men Type: BLOOD SPECIMENOrdering Facility: [facility] Address: [address] [place] [address] Performed By: #### 2 8, , 2776-08 ####[facility] LABORATORYCLIA [id number] [place] [id number] [place] Calcium [Mass/Vol] 9.3 mg/dL Normal 8.5-10.2 [facility] Comment on above: Order Comment: Speci men Type: BLOOD SPECIMENOrdering Facility: [facility] Address: [address] [place] [address] Performed By: #### 2 4322-8, , 2776-08 ####[facility] LABORATORYCLIA [id number] [place] [id number] [place] Chloride [Moles/Vol] 100 mmol/L Normal 97-105 [facility] Comment on above: Order Comment: Speci men Type: BLOOD SPECIMENOrdering Facility: [facility] Address: [address] [place] [address] Performed By: #### 2 4323-8, , 2776-08 ####[facility] LABORATORYCLIA [id number] [place] [id number] [place] CO2 [Moles/Vol] 25 mmol/L Normal 22-30 [facility] Comment on above: Order Comment: Speci men Type: BLOOD SPECIMENOrdering Facility: [facility] Address: [address] [place] [address] Performed By: #### 2 4323-8, , 2776-08 ####[facility]ORATORYCLIA [id number] [place] [id number] [place] Creatinine [Mass/Vol] 1.34 mg/dL High 0.73-1.22 [facility] Comment on above: Order Comment: Demarcusi men Type: BLOOD SPECIMENOrdering Facility: [facility] Address: [place] [address] Performed By: #### 2 4323-8, , 2776-08 ####[facility]ORATORYCLIA [id number] [address] Creatinine and Glomerular filtration rate.predicted panel (S/P/Bld) 58 mL/min/1.73m??? Low >=60 [facility] Comment on above: Order Comment: Speci men Type: BLOOD SPECIMENOrdering Facility: [facility] Address: [address] [place] [address] Result Comment: Bailey mated Glomerular Filtration Rate [...] Performed By: #### 2 4323-8, , 2776-08 ####[facility] LABORATORYCLIA [id number] [place] [id number] [place] Glucose [Mass/Vol] 105 mg/dL High 74-99 [facility] Comment on above: Order Comment: Speci men Type: BLOOD SPECIMENOrdering Facility: [facility] Address: [address] [place] [address] Result Comment: The [place] Diabetes [...] #### 2 4323-8, , 2776-08 ####[facility] LABORATORYCLIA [id number] [place] [address] [place] Potassium [Moles/Vol] 3.6 mmol/L Low 3.7-5.1 [facility] Comment on above: Order Comment: Speci men Type: BLOOD SPECIMENOrdering Facility: [facility] Address: [address] [place] [address] Performed By: #### 2 43238, , 2776-08 ####[facility] LABORATORYCLIA [id number] [place] [address] [place] Protein [Mass/Vol] 7.5 g/dL Normal 6.3-8.0 [facility] Comment on above: Order Comment: Speci men Type: BLOOD SPECIMENOrdering Facility: [facility] Address: [address] [place] [address] Performed By: #### 2 4323-8, , 2776-08 ####[facility] LABORATORYCLIA [id number] [place] [id number] [place] Sodium [Moles/Vol] 140 mmol/L Normal 136-144 [facility] Comment on above: Order Comment: Speci men Type: BLOOD SPECIMENOrdering Facility: [facility] Address: [address] [place] [address] Performed By: #### 2 4323-8, , 2776-08 ####[facility] LABORATORYCLIA [id number] [place] [address] [place] Urea nitrogen [Mass/Vol] 28 mg/dL High 05-18 [facility] Comment on above: Order Comment: Speci men Type: BLOOD SPECIMENOrdering Facility: [facility] Address: [address] [place] [address] Performed By: #### 2 4323-8, , 2776-08 ####[facility]ORATORYCLIA [id number] [place] [id number] [place] [facility] Magnesium [Mass/Vol] 2.0 mg/dL Normal 1.7-2.3 [facility] Comment on above: Order Comment: Speci men Type: BLOOD SPECIMENOrdering Facility: [facility] Address: [address] [place] [address] Performed By: #### 2 4323-8, , 2776-08 ####[facility]ORATORYCLIA [id number] [place] [id number] [place] NURSING PROGon 08-10-2023 NURSING PROG Normal [facility] Phosphate SerPl-mCncon 08-10 Phosphate [Mass/Vol] 3.9 mg/dL Normal 2.7-4.8 [facility] Comment on above: Order Comment: Speci men Type: BLOOD SPECIMENOrdering Facility: [facility] Address: [address] [place] [address] Performed By: #### 2 4323-8, , 27702-22 ####[facility]ORATORYCLIA [id number] [place] [id number] [place] CBC W Auto Differential pane l (Bld)on 08-09-2023 Basophils (Bld) [#/Vol] 0.06 10*3/uL Normal <0.11 [facility] Comment on above: Order Comment: Speci men Type: BLOOD SPECIMENOrdering Facility: [facility] Address: [address] [place] [address] Performed By: #### 5 7021-8 ####[facility]ORATORYCLIA [id number] [place] [address] [place] Basophils/100 WBC (Bld) 0.6 % Normal [facility] Comment on above: Order Comment: Speci men Type: BLOOD SPECIMENOrdering Facility: [facility] Address: [address] [place] [address] Performed By: #### 5 7021-8 ####[facility] LABORATORYCLIA [id number] [place] [address] [place] Differential cell count method Nom (Bld) Auto Normal [facility] Comment on above: Order Comment: Speci men Type: BLOOD SPECIMENOrdering Facility: [facility] Address: [address] [place] [address] Performed By: #### 5 7021-8 ####[facility] LABORATORYCLIA [id number] [place] [address] [place] Eosinophils (Bld) [#/Vol] 0.28 10*3/uL Normal <0.46 [facility] Comment on above: Order Comment: Speci men Type: BLOOD SPECIMENOrdering Facility: [facility] Address: [address] [place] [address] Performed By: #### 5 7021-8 ####[facility] LABORATORYCLIA [id number] [address] [place] Eosinophils/100 WBC (Bld) 2.9 % Normal [facility] Comment on above: Order Comment: Speci men Type: BLOOD SPECIMENOrdering Facility: [facility] Address: [address] [place] [address] Performed By: #### 5 7021-8 ####[facility] LABORATORYCLIA [id number] [place] [address] [place] Erythrocyte distribution width (RBC) [Ratio] 11.9 % Normal 11.5-15.0 [facility] Comment on above: Order Comment: Speci men Type: BLOOD SPECIMENOrdering Facility: [facility] Address: [address] [place] [address] Performed By: #### 5 7021-8 ####[facility] LABORATORYCLIA [id number] [place] [address] [place] Hematocrit (Bld) [Volume fraction] 38.0 % Low 39.0-51.0 [facility] Comment on above: Order Comment: Speci men Type: BLOOD SPECIMENOrdering Facility: [facility] Address: [address] [place] [address] Performed By: #### 5 7021-8 ####[facility] LABORATORYCLIA [id number] [place] [id number] [place] Hemoglobin (Bld) [Mass/Vol] 13.0 g/dL Normal 13.0-17.0 [facility] Comment on above: Order Comment: Speci men Type: BLOOD SPECIMENOrdering Facility: [facility] Address: [address] [place] [address] Performed By: #### 5 7021-8 ####[facility] LABORATORYCLIA [id number] [place] [address] [place] Immature granulocytes (Bld) [#/Vol] 0.05 10*3/uL Normal <0.10 [facility] Comment on above: Order Comment: Speci men Type: BLOOD SPECIMENOrdering Facility: [facility] Address: [address] [place] [address] Performed By: #### 5 7021-8 ####[facility] LABORATORYCLIA [id number] [place] [address] [place] Immature granulocytes/100 WBC (Bld) 0.5 % Normal [facility] Comment on above: Order Comment: Speci men Type: BLOOD SPECIMENOrdering Facility: [facility] Address: [address] [place] [address] Performed By: #### 5 7021-8 ####[facility] LABORATORYCLIA [id number] [place] [address] [place] Lymphocytes (Bld) [#/Vol] 0.87 10*3/uL Low 1.00-4.00 [facility] Comment on above: Order Comment: Speci men Type: BLOOD SPECIMENOrdering Facility: [facility] Address: [address] [place] [address] Performed By: #### 5 7021-8 ####[facility] LABORATORYCLIA [id number] [place] [address] [place] Lymphocytes/100 WBC (Bld) 9.1 % Normal [facility] Comment on above: Order Comment: Speci men Type: BLOOD SPECIMENOrdering Facility: [facility] Address: [address] [place] [address] Performed By: #### 5 7021-8 ####[facility] LABORATORYCLIA [id number] [place] [address] [place] MCH (RBC) [Entitic mass] 29.8 pg Normal 26.0-34.0 [facility] Comment on above: Order Comment: Speci men Type: BLOOD SPECIMENOrdering Facility: [facility] Address: [address] [place] [address] Performed By: #### 5 7021-8 ####[facility] LABORATORYCLIA [id number] [place] [address] [place] MCHC (RBC) [Mass/Vol] 34.2 g/dL Normal 30.5-36.0 [facility] Comment on above: Order Comment: Speci men Type: BLOOD SPECIMENOrdering Facility: [facility] Address: [address] [place] [address] Performed By: #### 5 7021-8 ####[facility] LABORATORYCLIA [id number] [address] [place] MCV (RBC) [Entitic vol] 87.2 fL Normal 80.0-100.0 [facility] Comment on above: Order Comment: Speci men Type: BLOOD SPECIMENOrdering Facility: [facility] Address: [address] [place] [address] Performed By: #### 5 7021-8 ####[facility] LABORATORYCLIA [id number] [place] [address] [place] Monocytes (Bld) [#/Vol] 1.22 10*3/uL High <0.87 [facility] Comment on above: Order Comment: Speci men Type: BLOOD SPECIMENOrdering Facility: [facility] Address: [address] [place] [address] Performed By: #### 5 7021-8 ####[facility] LABORATORYCLIA [id number] [place] [id number] [place] Monocytes/100 WBC (Bld) 12.8 % Normal [facility] Comment on above: Order Comment: Speci men Type: BLOOD SPECIMENOrdering Facility: [facility] Address: [address] [place] [address] Performed By: #### 5 7021-8 ####[facility] LABORATORYCLIA [id number] [place] [address] [place] Neutrophils (Bld) [#/Vol] 7.06 10*3/uL Normal 1.45-7.50 [facility] Comment on above: Order Comment: Speci men Type: BLOOD SPECIMENOrdering Facility: [facility] Address: [address] [place] [address] Performed By: #### 5 7021-8 ####[facility] LABORATORYCLIA [id number] [place] [address] [place] Neutrophils/100 WBC (Bld) 74.1 % Normal [facility] Comment on above: Order Comment: Speci men Type: BLOOD SPECIMENOrdering Facility: [facility] Address: [address] [place] [address] Performed By: #### 5 7021-8 ####[facility] LABORATORYCLIA [id number] [place] [id number] [place] Nucleated RBC (Bld) [#/Vol] 10*3/uL Normal <0.01 [facility] Comment on above: Order Comment: Speci men Type: BLOOD SPECIMENOrdering Facility: [facility] Address: [address] [place] [address] Performed By: #### 5 7021-8 ####[facility] LABORATORYCLIA [id number] [place] [id number] [place] Nucleated RBC/100 WBC (Bld) [Ratio] 0.0 /100 WBC Normal [facility] Comment on above: Order Comment: Speci men Type: BLOOD SPECIMENOrdering Facility: [facility] Address: [address] [place] [address] Performed By: #### 5 7021-8 ####[facility]ATORYCLIA [id number] [place] [id number] [place] Platelet mean volume (Bld) [Entitic vol] 11.2 fL Normal 9.0-12.7 [facility] Comment on above: Order Comment: Speci men Type: BLOOD SPECIMENOrdering Facility: [facility] Address: [address] [place] [address] Performed By: #### 5 7021-8 ####[facility]ATORYCLIA [id number] [place] [id number] [place] Platelets (Bld) [#/Vol] 298 10*3/uL Normal 150-400 [facility] Comment on above: Order Comment: Speci men Type: BLOOD SPECIMENOrdering Facility: [facility] Address: [address] [place] [address] Performed By: #### 5 7021-8 ####[facility]ORATORYCLIA [id number] [place] [id number] [place] RBC (Bld) [#/Vol] 4.36 10*6/uL Normal 4.20-6.00 [facility] Comment on above: Order Comment: Speci men Type: BLOOD SPECIMENOrdering Facility: [facility] Address: [address] [place] [address] Performed By: #### 5 7021-8 ####[facility]ATORYCLIA [id number] [place] [id number] [place] WBC (Bld) [#/Vol] 9.54 10*3/uL Normal 3.70-11.00 [facility] Comment on above: Order Comment: Speci men Type: BLOOD SPECIMENOrdering Facility: [facility] Address: [address] [place] [address] Performed By: #### 5 7021-8 ####[facility] LABORATORYCLIA [id number] [place] [id number] [place] [facility] [place] Comprehensive metabolic 2000 panelon 08-09-2023 Albumin [Mass/Vol] 3.9 g/dL Normal 3.9-4.9 [facility] Comment on above: Order Comment: Speci men Type: BLOOD SPECIMENOrdering Facility: [facility] Address: [address] [facility] [place] [address] Performed By: #### 2 4323-8, 2776-08, ####[facility] LABORATORYCLIA [id number] [place] [id number] [place] ALP [Catalytic activity/Vol] 110 U/L Normal 38-113 [facility] Comment on above: Order Comment: Speci men Type: BLOOD SPECIMENOrdering Facility: [facility] Address: [address] [place] [address] Performed By: #### 2 4323-8, 2776-08, ####[facility] LABORATORYCLIA [id number] [place] [id number] [place] ALT [Catalytic activity/Vol] 26 U/L Normal 10-54 [facility] Comment on above: Order Comment: Speci men Type: BLOOD SPECIMENOrdering Facility: [facility] Address: [address] [facility] [place] [address] Performed By: #### 2 4323-8, 2776-08, ####[facility] LABORATORYCLIA [id number] [place] [id number] [place] Anion gap [Moles/Vol] 11 mmol/L Normal 9-18 [facility] Comment on above: Order Comment: Speci men Type: BLOOD SPECIMENOrdering Facility: [facility] Address: [place] [address] Performed By: #### 2 4323-8, 2776-08, ####[facility] LABORATORYCLIA [id number] [place] [id number] [place] AST [Catalytic activity/Vol] 21 U/L Normal 14-40 [facility] Comment on above: Order Comment: Speci men Type: BLOOD SPECIMENOrdering Facility: [facility] Address: [place] [address] Performed By: #### 2 4323-8, 2776-08, ####[facility] LABORATORYCLIA [id number] [place] [address] [place] Bilirubin [Mass/Vol] 0.6 mg/dL Normal 0.2-1.3 [facility] Comment on above: Order Comment: Speci men Type: BLOOD SPECIMENOrdering Facility: [facility] Address: [address] [place] [address] Performed By: #### 2 4323-8, 2776-08, ####[facility] LABORATORYCLIA [id number] [place] [address] [place] Calcium [Mass/Vol] 9.4 mg/dL Normal 8.5-10.2 [facility] Comment on above: Order Comment: Speci men Type: BLOOD SPECIMENOrdering Facility: [facility] Address: [address] [place] [address] Performed By: #### 2 4323-8, 2776-08, ####[facility] LABORATORYCLIA [id number] [place] [id number] [place] Chloride [Moles/Vol] 104 mmol/L Normal 97-105 [facility] Comment on above: Order Comment: Speci men Type: BLOOD SPECIMENOrdering Facility: [facility] Address: [address] [place] [address] Performed By: #### 2 4323-8, 2776-08, ####[facility] LABORATORYCLIA [id number] [place] [id number] [place] CO2 [Moles/Vol] 23 mmol/L Normal 22-30 [facility] Comment on above: Order Comment: Speci men Type: BLOOD SPECIMENOrdering Facility: [facility] Address: [address] [place] [address] Performed By: #### 2 4323-8, 2776-08, ####[facility] LABORATORYCLIA [id number] [place] [address] [place] Creatinine [Mass/Vol] 1.52 mg/dL High 0.73-1.22 [facility] Comment on above: Order Comment: Arben suarez Type: BLOOD SPECIMENOrdering Facility: [facility] Address: [address] [place] [address] Performed By: #### 2 4323-8, 2777-1, ####[facility] LABORATORYCLIA [id number] [place] [id number] [place] Creatinine and Glomerular filtration rate.predicted panel (S/P/Bld) 50 mL/min/1.73m??? Low >=60 [facility] Comment on above: Order Comment: Arben suarez Type: BLOOD SPECIMENOrdering Facility: [facility] Address: [address] [place] [address] Result Comment: Bailey mated Glomerular Filtration Rate [...] GFR. Performed By: #### 2 4323-8, 2777-, ####[facility]ATORYCLIA [id number] [place] [id number] [place] Glucose [Mass/Vol] 132 mg/dL High 74-99 [facility] Comment on above: Order Comment: Arben suarez Type: BLOOD SPECIMENOrdering Facility: [facility] Address: [address] [place] [address] Result Comment: The [place] Diabetes [...] 2016.39(Suppl 1). Performed By: #### 2 4323-8, 27702-22, ####[facility] LABORATORYCLIA [id number] [place] [address] [place] Potassium [Moles/Vol] 3.9 mmol/L Normal 3.7-5.1 [facility] Comment on above: Order Comment: Speci men Type: BLOOD SPECIMENOrdering Facility: [facility] Address: [address] [place] [address] Performed By: #### 2 4323-8, 2776-08, ####[facility] LABORATORYCLIA [id number] [place] [id number] [place] Protein [Mass/Vol] 7.3 g/dL Normal 6.3-8.0 [facility] Comment on above: Order Comment: Speci men Type: BLOOD SPECIMENOrdering Facility: [facility] Address: [address] [place] [address] Performed By: #### 2 4323-8, 2776-08, ####[facility] LABORATORYCLIA [id number] [place] [id number] [place] Sodium [Moles/Vol] 138 mmol/L Normal 136-144 [facility] Comment on above: Order Comment: Speci men Type: BLOOD SPECIMENOrdering Facility: [facility] Address: [address] [place] [address] Performed By: #### 2 4323-8, 2776-08, ####[facility] LABORATORYCLIA [id number] [place] [address] [place] Urea nitrogen [Mass/Vol] 25 mg/dL High 9-24 [facility] Comment on above: Order Comment: Speci men Type: BLOOD SPECIMENOrdering Facility: [facility] Address: [address] [place] [address] Performed By: #### 2 4323-8, 27702-22, ####[facility] LABORATORYCLIA [id number] [place] [address] [place] Magnesium SerPl-ncon 08-09 Magnesium [Mass/Vol] 2.2 mg/dL Normal 1.7-2.3 [facility] Comment on above: Order Comment: Speci men Type: BLOOD SPECIMENOrdering Facility: [facility] Address: [place] [address] Performed By: #### 2 4323-8, 2777-1, 90079-2 ####[facility]ORATORYCLIA [id number] [place] [id number] [place] NURSING PROGon 08-09-2023 NURSING PROG Normal [facility] NUTRITIONon 08-09-2023 NUTRITION Normal [facility] Phosphate SerPl-ncon 08-09 Phosphate [Mass/Vol] 3.1 mg/dL Normal 2.7-4.8 [facility] Comment on above: Order Comment: Speci men Type: BLOOD SPECIMENOrdering Facility: [facility] Address: [place] [address] Performed By: #### 2 4323-8, 2777-1, ####[facility]ATORYCLIA [id number] [place] [phone] [place] THERAPY NTon 08-09-2023 THERAPY NT Normal [facility] ALLIED HEALTHon 08-08-2023 ALLIED HEALTH Normal [facility] CASE MGT INIT ASSESon 2022 CASE MGT INIT [facility] CBC W Auto Differential pane l (Bld)on 08-08-2023 Basophils (Bld) [#/Vol] 0.06 10*3/uL Normal <0.11 [facility] Comment on above: Order Comment: Speci men Type: BLOOD SPECIMENOrdering Facility: [facility] Address: [place] [address] Performed By: #### 5 7021-8 ####[facility]ORATORYCLIA [id number] [place] [id number] [place] Basophils/100 WBC (Bld) 0.7 % Normal [facility] Comment on above: Order Comment: Speci men Type: BLOOD SPECIMENOrdering Facility: [facility] Address: [address] [place] [address] Performed By: #### 5 7021-8 ####[facility] LABORATORYCLIA [id number] [place] [id number] [place] Differential cell count method Nom (Bld) Auto Normal [facility] Comment on above: Order Comment: Speci men Type: BLOOD SPECIMENOrdering Facility: [facility] Address: [address] [place] [address] Performed By: #### 5 7021-8 ####[facility] LABORATORYCLIA [id number] [place] [address] [place] Eosinophils (Bld) [#/Vol] 0.14 10*3/uL Normal <0.46 [facility] Comment on above: Order Comment: Speci men Type: BLOOD SPECIMENOrdering Facility: [facility] Address: [address] [place] [address] Performed By: #### 5 7021-8 ####[facility] LABORATORYCLIA [id number] [place] [address] [place] Eosinophils/100 WBC (Bld) 1.7 % Normal [facility] Comment on above: Order Comment: Speci men Type: BLOOD SPECIMENOrdering Facility: [facility] Address: [address] [place] [address] Performed By: #### 5 7021-8 ####[facility] LABORATORYCLIA [id number] [place] [id number] [place] Erythrocyte distribution width (RBC) [Ratio] 11.9 % Normal 11.5-15.0 [facility] Comment on above: Order Comment: Speci men Type: BLOOD SPECIMENOrdering Facility: [facility] Address: [address] [place] [address] Performed By: #### 5 7021-8 ####[facility] LABORATORYCLIA [id number] [place] [id number] [place] Hematocrit (Bld) [Volume fraction] 39.6 % Normal 39.0-51.0 [facility] Comment on above: Order Comment: Speci men Type: BLOOD SPECIMENOrdering Facility: [facility] Address: [address] [place] [address] Performed By: #### 5 7021-8 ####[facility] LABORATORYCLIA [id number] [place] [id number] [place] Hemoglobin (Bld) [Mass/Vol] 13.7 g/dL Normal 13.0-17.0 [facility] Comment on above: Order Comment: Speci men Type: BLOOD SPECIMENOrdering Facility: [facility] Address: [address] [place] [address] Performed By: #### 5 7021-8 ####[facility] LABORATORYCLIA [id number] [place] [address] [place] Immature granulocytes (Bld) [#/Vol] 0.06 10*3/uL Normal <0.10 [facility] Comment on above: Order Comment: Speci men Type: BLOOD SPECIMENOrdering Facility: [facility] Address: [address] [place] [address] Performed By: #### 5 7021-8 ####[facility] LABORATORYCLIA [id number] [place] [address] [place] Immature granulocytes/100 WBC (Bld) 0.7 % Normal [facility] Comment on above: Order Comment: Speci men Type: BLOOD SPECIMENOrdering Facility: [facility] Address: [address] [place] [address] Performed By: #### 5 7021-8 ####[facility] LABORATORYCLIA [id number] [place] [id number] [place] Lymphocytes (Bld) [#/Vol] 1.02 10*3/uL Normal 1.00-4.00 [facility] Comment on above: Order Comment: Speci men Type: BLOOD SPECIMENOrdering Facility: [facility] Address: [address] [place] [address] Performed By: #### 5 7021-8 ####[facility] LABORATORYCLIA [id number] [place] [address] [place] Lymphocytes/100 WBC (Bld) 12.1 % Normal [facility] Comment on above: Order Comment: Speci men Type: BLOOD SPECIMENOrdering Facility: [facility] Address: [address] [place] [address] Performed By: #### 5 7021-8 ####[facility] LABORATORYCLIA [id number] [address] MCH (RBC) [Entitic mass] 29.9 pg Normal 26.0-34.0 [facility] Comment on above: Order Comment: Speci men Type: BLOOD SPECIMENOrdering Facility: [facility] Address: [address] [place] [address] Performed By: #### 5 7021-8 ####[facility] LABORATORYCLIA [id number] [address] [place] MCHC (RBC) [Mass/Vol] 34.6 g/dL Normal 30.5-36.0 [facility] Comment on above: Order Comment: Speci men Type: BLOOD SPECIMENOrdering Facility: [facility] Address: [address] [place] [address] Performed By: #### 5 7021-8 ####[facility] LABORATORYCLIA [id number] [address] [place] MCV (RBC) [Entitic vol] 86.5 fL Normal 80.0-100.0 [facility] Comment on above: Order Comment: Speci men Type: BLOOD SPECIMENOrdering Facility: [facility] Address: [address] [place] [address] Performed By: #### 5 7021-8 ####[facility] LABORATORYCLIA [id number] [address] [place] Monocytes (Bld) [#/Vol] 0.78 10*3/uL Normal <0.87 [facility] Comment on above: Order Comment: Speci men Type: BLOOD SPECIMENOrdering Facility: [facility] Address: [address] [place] [address] Performed By: #### 5 7021-8 ####[facility] LABORATORYCLIA [id number] [address] [place] Monocytes/100 WBC (Bld) 9.3 % Normal [facility] Comment on above: Order Comment: Speci men Type: BLOOD SPECIMENOrdering Facility: [facility] Address: [address] [place] [address] Performed By: #### 5 7021-8 ####[facility] LABORATORYCLIA [id number] [place] [address] [place] Neutrophils (Bld) [#/Vol] 6.37 10*3/uL Normal 1.45-7.50 [facility] Comment on above: Order Comment: Speci men Type: BLOOD SPECIMENOrdering Facility: [facility] Address: [address] [place] [address] Performed By: #### 5 7021-8 ####[facility] LABORATORYCLIA [id number] [place] [address] [place] Neutrophils/100 WBC (Bld) 75.5 % Normal [facility] Comment on above: Order Comment: Speci men Type: BLOOD SPECIMENOrdering Facility: [facility] Address: [address] [place] [address] Performed By: #### 5 7021-8 ####[facility] LABORATORYCLIA [id number] [place] [address] [place] Nucleated RBC (Bld) [#/Vol] 10*3/uL Normal <0.01 [facility] Comment on above: Order Comment: Speci men Type: BLOOD SPECIMENOrdering Facility: [facility] Address: [address] [place] [address] Performed By: #### 5 7021-8 ####[facility] LABORATORYCLIA [id number] [place] [id number] [place] Nucleated RBC/100 WBC (Bld) [Ratio] 0.0 /100 WBC Normal [facility] Comment on above: Order Comment: Speci men Type: BLOOD SPECIMENOrdering Facility: [facility] Address: [address] [place] [address] Performed By: #### 5 7021-8 ####[facility] LABORATORYCLIA [id number] [place] [address] [place] Platelet mean volume (Bld) [Entitic vol] 11.3 fL Normal 9.0-12.7 [facility] Comment on above: Order Comment: Speci men Type: BLOOD SPECIMENOrdering Facility: [facility] Address: [place] [address] Performed By: #### 5 7021-8 ####[facility]ORATORYCLIA [id number] [place] [address] [place] Platelets (Bld) [#/Vol] 320 10*3/uL Normal 150-400 [facility] Comment on above: Order Comment: Speci men Type: BLOOD SPECIMENOrdering Facility: [facility] Address: [place] [address] Performed By: #### 5 7021-8 ####[facility]ORATORYCLIA [id number] [place] [address] [place] RBC (Bld) [#/Vol] 4.58 10*6/uL Normal 4.20-6.00 [facility] Comment on above: Order Comment: Speci men Type: BLOOD SPECIMENOrdering Facility: [facility] Address: [place] [address] Performed By: #### 5 7021-8 ####[facility]ORATORYCLIA [id number] [place] [address] [place] WBC (Bld) [#/Vol] 8.43 10*3/uL Normal 3.70-11.00 [facility] Comment on above: Order Comment: Speci men Type: BLOOD SPECIMENOrdering Facility: [facility] Address: [place] [address] Performed By: #### 5 7021-8 ####[facility]ORATORYCLIA [id number] [place] [id number] [place] CONSULTon 08-08-2023 CONSULT Normal [facility] CT PANCREAS/PELVIS W IVCONon 08-08-2023 CT PANCREAS/PELVIS W IVCON Normal [facility] Comprehensive metabolic 2000 panelon 08-08-2023 Albumin [Mass/Vol] 4.5 g/dL Normal 3.9-4.9 [facility] Comment on above: Order Comment: Speci men Type: BLOOD SPECIMENOrdering Facility: [facility] Address: [address] [place] [address] Performed By: #### 2 777-1, , ####[facility] LABORATORYCLIA [id number] [place] [id number] [place] ALP [Catalytic activity/Vol] 114 U/L High 38-113 [facility] Comment on above: Order Comment: Speci men Type: BLOOD SPECIMENOrdering Facility: [facility] Address: [address] [place] [address] Performed By: #### 2 777-1, , ####[facility] LABORATORYCLIA [id number] [place] [id number] [place] ALT [Catalytic activity/Vol] 30 U/L Normal 10-54 [facility] Comment on above: Order Comment: Speci men Type: BLOOD SPECIMENOrdering Facility: [facility] Address: [address] [place] [address] Performed By: #### 2 777-1, , ####[facility] LABORATORYCLIA [id number] [place] [id number] [place] Anion gap [Moles/Vol] 17 mmol/L Normal 9-18 [facility] Comment on above: Order Comment: Speci men Type: BLOOD SPECIMENOrdering Facility: [facility] Address: [address] [place] [address] Performed By: #### 2 777-1, , ####[facility] LABORATORYCLIA [id number] [place] [address] [place] AST [Catalytic activity/Vol] 27 U/L Normal 14-40 [facility] Comment on above: Order Comment: Speci men Type: BLOOD SPECIMENOrdering Facility: [facility] Address: [address] [place] [address] Performed By: #### 2 777-1, , ####[facility] LABORATORYCLIA [id number] [place] [id number] [place] Bilirubin [Mass/Vol] 0.5 mg/dL Normal 0.2-1.3 [facility] Comment on above: Order Comment: Speci men Type: BLOOD SPECIMENOrdering Facility: [facility] Address: [address] [place] [address] Performed By: #### 2 777-1, , ####[facility] LABORATORYCLIA [id number] [place] [id number] [place] Calcium [Mass/Vol] 9.7 mg/dL Normal 8.5-10.2 [facility] Comment on above: Order Comment: Speci men Type: BLOOD SPECIMENOrdering Facility: [facility] Address: [address] [place] [address] Performed By: #### 2 777-1, , ####[facility] LABORATORYCLIA [id number] [place] [phone] [place] Chloride [Moles/Vol] 102 mmol/L Normal 97-105 [facility] Comment on above: Order Comment: Speci men Type: BLOOD SPECIMENOrdering Facility: [facility] Address: [address] [place] [address] Performed By: #### 2 777-1, , ####[facility] LABORATORYCLIA [id number] [place] [id number] [place] CO2 [Moles/Vol] 18 mmol/L Low 22-30 [facility] Comment on above: Order Comment: Speci men Type: BLOOD SPECIMENOrdering Facility: [facility] Address: [address] [place] [address] Performed By: #### 2 777-1, , ####[facility] LABORATORYCLIA [id number] [place] [id number] [place] Creatinine [Mass/Vol] 1.86 mg/dL High 0.73-1.22 [facility] Comment on above: Order Comment: Speci men Type: BLOOD SPECIMENOrdering Facility: [facility] Address: [address] [place] [address] Performed By: #### 2 777-1, 70898-6, ####[facility]ORATORYCLIA [id number] [place] [id number] [place] Creatinine and Glomerular filtration rate.predicted panel (S/P/Bld) 39 mL/min/1.73m??? Low >=60 [facility] Comment on above: Order Comment: Arben suarez Type: BLOOD SPECIMENOrdering Facility: [facility] Address: [address] [place] [address] Result Comment: Bailey mated Glomerular Filtration Rate [...] actual GFR. Performed By: #### 2 777-1, 46777-2, ####[facility]ORATORYCLIA [id number] [place] [id number] [place] Glucose [Mass/Vol] 87 mg/dL Normal 74-99 [facility] Comment on above: Order Comment: Arben suarez Type: BLOOD SPECIMENOrdering Facility: [facility] Address: [address] [place] [address] Result Comment: The [place] Diabetes [...] 1). Performed By: #### 2 777-1, , ####[facility]ORATORYCLIA [id number] [place] [address] [place] Potassium [Moles/Vol] 4.2 mmol/L Normal 3.7-5.1 [facility] Comment on above: Order Comment: Speci men Type: BLOOD SPECIMENOrdering Facility: [facility] Address: [address] [place] [address] Performed By: #### 2 777-1, , ####[facility] LABORATORYCLIA [id number] [place] [address] [place] Protein [Mass/Vol] 7.6 g/dL Normal 6.3-8.0 [facility] Comment on above: Order Comment: Speci men Type: BLOOD SPECIMENOrdering Facility: [facility] Address: [address] [place] [address] Performed By: #### 2 777-1, , ####[facility]ORATORYCLIA [id number] [place] [id number] [place] Sodium [Moles/Vol] 137 mmol/L Normal 136-144 [facility] Comment on above: Order Comment: Speci men Type: BLOOD SPECIMENOrdering Facility: [facility] Address: [address] [place] [address] Performed By: #### 2 777-1, , ####[facility] LABORATORYCLIA [id number] [place] [id number] [place] Urea nitrogen [Mass/Vol] 33 mg/dL High 9-24 [facility] Comment on above: Order Comment: Speci men Type: BLOOD SPECIMENOrdering Facility: [facility] Address: [address] [place] [address] Performed By: #### 2 777-1, , ####[facility] LABORATORYCLIA [id number] [place] [address] [place] ECG COMPLETEon 08-08-2023 ECG COMPLETE Normal [facility] Magnesium SerPl-mCncon 08-08 Magnesium [Mass/Vol] 2.2 mg/dL Normal 1.7-2.3 [facility] Comment on above: Order Comment: Speci men Type: BLOOD SPECIMENOrdering Facility: [facility] Address: [address] [place] [address] Performed By: #### 2 777-1, 87665-2, 44288-5 ####[facility]ORATORYCLIA [id number] [place] [id number] [place] NUTRITIONon 08-08-2023 NUTRITION Normal [facility] NUTRITION Normal [facility] Phosphate [Mass/Vol] 3.4 mg/dL Normal 2.7-4.8 [facility] Comment on above: Order Comment: Speci men Type: BLOOD SPECIMENOrdering Facility: [facility] Address: [address] [place] [address] Performed By: #### 2 777-1, 26149-1, ####[facility]ORATORYCLIA [id number] [place] [id number] [place] THERAPY NTon 08-08-2023 THERAPY NT Normal [facility] Urinalysis complete panel (U )on 08-08-2023 Bilirubin Ql (U) Negative Normal Negative [facility] Comment on above: Order Comment: Speci men Type: URINE SPECIMENOrdering Facility: [facility] Address: [address] [place] [address] Performed By: #### 2 4356-8 ####[facility]ORATORYCLIA [id number] [place] [id number] [place] Clarity (Unsp spec) Clear Normal Clear [facility] Comment on above: Order Comment: Speci men Type: URINE SPECIMENOrdering Facility: [facility] Address: [address] [place] [address] Performed By: #### 2 4356-8 ####[facility]ORATORYCLIA [id number] [place] [id number] [place] Color (U) Light Yellow Normal Yellow [facility] Comment on above: Order Comment: Speci men Type: URINE SPECIMENOrdering Facility: [facility] Address: [address] [place] [address] Performed By: #### 2 4356-8 ####[facility] LABORATORYCLIA [id number] [place] [address] [place] Glucose Test strip (U) [Mass/Vol] Negative Normal Trace, Negative [facility] Comment on above: Order Comment: Speci men Type: URINE SPECIMENOrdering Facility: [facility] Address: [address] [place] [address] Performed By: #### 2 4356-8 ####[facility] LABORATORYCLIA [id number] [place] [address] [place] Hemoglobin Ql (U) Negative Normal Negative, Trace [facility] [facility] Comment on above: Order Comment: Speci men Type: URINE SPECIMENOrdering Facility: [facility] Address: [address] [place] [address] Performed By: #### 2 4356-8 ####GE[facility] LABORATORYCLIA [id number] [place] [address] [place] Hyaline casts (Urine sed) [#/Area] 4-10 /LPF Abnormal 0 /LPF [facility] Comment on above: Order Comment: Speci men Type: URINE SPECIMENOrdering Facility: [facility] Address: [address] [place] [address] Performed By: #### 2 4356-8 ####GEOVANNA LABORATORYCLIA [id number] [place] [address] [place] Ketones Ql (U) Trace Normal Negative, Trace [facility] Comment on above: Order Comment: Speci men Type: URINE SPECIMENOrdering Facility: [facility] Address: [address] [place] [address] Performed By: #### 2 4356-8 ####[facility] LABORATORYCLIA [id number] [address] [place] Leukocyte esterase Test strip Ql (U) Negative Normal Negative, 25 Angle/uL [facility] Comment on above: Order Comment: Speci men Type: URINE SPECIMENOrdering Facility: [facility] Address: [address] [place] [address] Performed By: #### 2 4356-8 ####[facility] LABORATORYCLIA [id number] [place] [id number] [place] Nitrite Ql (U) Negative Normal Negative [facility] Comment on above: Order Comment: Speci men Type: URINE SPECIMENOrdering Facility: [facility] Address: [address] [place] [address] Performed By: #### 2 4356-8 ####[facility] LABORATORYCLIA [id number] [place] [id number] [place] pH (U) 6.5 [pH] Normal 5.0-8.0 [facility] Comment on above: Order Comment: Speci men Type: URINE SPECIMENOrdering Facility: [facility] Address: [address] [place] [address] Performed By: #### 2 4356-8 ####[facility] LABORATORYCLIA [id number] [place] [address] [place] Protein (U) [Mass/Vol] 1+ Abnormal Trace, Negative [facility] Comment on above: Order Comment: Speci men Type: URINE SPECIMENOrdering Facility: [facility] Address: [address] [place] [address] Performed By: #### 2 4356-8 ####[facility] LABORATORYCLIA [id number] [place] [id number] [place] RBC LM.HPF (Urine sed) [#/Area] 0-3 /HPF Normal 0-3 /HPF [facility] Comment on above: Order Comment: Speci men Type: URINE SPECIMENOrdering Facility: [facility] Address: [address] [place] [address] Performed By: #### 2 4356-8 ####[facility] LABORATORYCLIA [id number] [place] [id number] [place] Specific gravity (U) [Rel density] >1.050 High 1.005-1.03 0 [facility] Comment on above: Order Comment: Speci men Type: URINE SPECIMENOrdering Facility: [facility] Address: [address] [place] [address] Performed By: #### 2 4356-8 ####[facility] LABORATORYCLIA [id number] [place] [id number] [place] Urobilinogen Ql (U) Negative Normal Negative [facility] Comment on above: Order Comment: Speci men Type: URINE SPECIMENOrdering Facility: [facility] Address: [address] [place] [address] Performed By: #### 2 4356-8 ####[facility] LABORATORYCLIA [id number] [place] [address] [place] WBC LM.HPF (Urine sed) [#/Area] 0-5 /HPF Normal 0-5 /HPF [facility] Comment on above: Order Comment: Speci men Type: URINE SPECIMENOrdering Facility: [facility] Address: [address] [place] [address] Performed By: #### 2 4356-8 ####[facility] LABORATORYCLIA [id number] [place] [address] [place] ALLIED HEALTHon 08-07-2023 ALLIED HEALTH Normal [facility] CBC W Auto Differential pane l (Bld)on 08-07-2023 Basophils (Bld) [#/Vol] 0.06 10*3/uL Normal <0.11 [facility] Comment on above: Order Comment: Speci men Type: BLOOD SPECIMENOrdering Facility: [facility] Address: [address] [place] [address] Performed By: #### 5 7021-8 ####[facility] LABORATORYCLIA [id number] [place] [address] [place] Basophils/100 WBC (Bld) 0.6 % Normal [facility] Comment on above: Order Comment: Speci men Type: BLOOD SPECIMENOrdering Facility: [facility] Address: [address] [place] [address] Performed By: #### 5 7021-8 ####[facility] LABORATORYCLIA [id number] [place] [address] [place] Differential cell count method Nom (Bld) Auto Normal [facility] Comment on above: Order Comment: Speci men Type: BLOOD SPECIMENOrdering Facility: [facility] Address: [address] [place] [address] Performed By: #### 5 7021-8 ####GEOV[facility]NA LABORATORYCLIA [id number] [place] [id number] [place] Eosinophils (Bld) [#/Vol] 0.08 10*3/uL Normal <0.46 [facility] Comment on above: Order Comment: Speci men Type: BLOOD SPECIMENOrdering Facility: [facility] Address: [address] [place] [address] Performed By: #### 5 7021-8 ####GEOVANNA LABORATORYCLIA [id number] [place] [id number] [facility] [place] Eosinophils/100 WBC (Bld) 0.8 % Normal [facility] Comment on above: Order Comment: Speci men Type: BLOOD SPECIMENOrdering Facility: [facility] Address: [address] [place] [address] Performed By: #### 5 7021-8 ####GEOVANNA LABORATORYCLIA [id number] [place] [address] [place] Erythrocyte distribution width (RBC) [Ratio] 11.9 % Normal 11.5-15.0 [facility] Comment on above: Order Comment: Speci men Type: BLOOD SPECIMENOrdering Facility: [facility] Address: [address] [place] [address] Performed By: #### 5 7021-8 ####GEOVANNA LABORATORYCLIA [id number] [place] [id number] [place] Hematocrit (Bld) [Volume fraction] 43.6 % Normal 39.0-51.0 [facility] Comment on above: Order Comment: Speci men Type: BLOOD SPECIMENOrdering Facility: [facility] Address: [address] [place] [address] Performed By: #### 5 7021-8 ####[facility] LABORATORYCLIA [id number] [place] [id number] [place] Hemoglobin (Bld) [Mass/Vol] 14.9 g/dL Normal 13.0-17.0 [facility] Comment on above: Order Comment: Speci men Type: BLOOD SPECIMENOrdering Facility: [facility] Address: [address] [place] [address] Performed By: #### 5 7021-8 ####GE[facility] LABORATORYCLIA [id number] [address] [place] Immature granulocytes (Bld) [#/Vol] 0.10 10*3/uL High <0.10 [facility] Comment on above: Order Comment: Speci men Type: BLOOD SPECIMENOrdering Facility: [facility] Address: [address] [place] [address] Performed By: #### 5 7021-8 ####[facility] LABORATORYCLIA [id number] [address] [place] Immature granulocytes/100 WBC (Bld) 1.0 % Normal [facility] Comment on above: Order Comment: Speci men Type: BLOOD SPECIMENOrdering Facility: [facility] Address: [address] [place] [address] Performed By: #### 5 7021-8 ####[facility] LABORATORYCLIA [id number] [place] [address] [place] Lymphocytes (Bld) [#/Vol] 1.20 10*3/uL Normal 1.00-4.00 [facility] Comment on above: Order Comment: Speci men Type: BLOOD SPECIMENOrdering Facility: [facility] Address: [address] [place] [address] Performed By: #### 5 7021-8 ####[facility] LABORATORYCLIA [id number] [address] [place] Lymphocytes/100 WBC (Bld) 12.1 % Normal [facility] Comment on above: Order Comment: Speci men Type: BLOOD SPECIMENOrdering Facility: [facility] Address: [address] [place] [address] Performed By: #### 5 7021-8 ####[facility] LABORATORYCLIA [id number] [place] [address] [place] MCH (RBC) [Entitic mass] 29.4 pg Normal 26.0-34.0 [facility] Comment on above: Order Comment: Speci men Type: BLOOD SPECIMENOrdering Facility: [facility] Address: [address] [place] [address] Performed By: #### 5 7021-8 ####GEOVANNA LABORATORYCLIA [id number] [place] [address] [place] MCHC (RBC) [Mass/Vol] 34.2 g/dL Normal 30.5-36.0 [facility] Comment on above: Order Comment: Speci men Type: BLOOD SPECIMENOrdering Facility: [facility] Address: [address] [place] [address] Performed By: #### 5 7021-8 ####[facility] LABORATORYCLIA [id number] [place] [address] [place] MCV (RBC) [Entitic vol] 86.0 fL Normal 80.0-100.0 [facility] Comment on above: Order Comment: Speci men Type: BLOOD SPECIMENOrdering Facility: [facility] Address: [address] [place] [address] Performed By: #### 5 7021-8 ####[facility] LABORATORYCLIA [id number] [place] [address] [place] Monocytes (Bld) [#/Vol] 0.97 10*3/uL High <0.87 [facility] Comment on above: Order Comment: Speci men Type: BLOOD SPECIMENOrdering Facility: [facility] Address: [address] [place] [address] Performed By: #### 5 7021-8 ####[facility] LABORATORYCLIA [id number] [address] [place] Monocytes/100 WBC (Bld) 9.7 % Normal [facility] Comment on above: Order Comment: Speci men Type: BLOOD SPECIMENOrdering Facility: [facility] Address: [address] [place] [address] Performed By: #### 5 7021-8 ####[facility] LABORATORYCLIA [id number] [place] [id number] [place] Neutrophils (Bld) [#/Vol] 7.54 10*3/uL High 1.45-7.50 [facility] Comment on above: Order Comment: Speci men Type: BLOOD SPECIMENOrdering Facility: [facility] Address: [address] [place] [address] Performed By: #### 5 7021-8 ####GE[facility] LABORATORYCLIA [id number] [place] [id number] [place] Neutrophils/100 WBC (Bld) 75.8 % Normal [facility] Comment on above: Order Comment: Speci men Type: BLOOD SPECIMENOrdering Facility: [facility] Address: [address] [place] [address] Performed By: #### 5 7021-8 ####[facility] LABORATORYCLIA [id number] [place] [address] [place] Nucleated RBC (Bld) [#/Vol] 10*3/uL Normal <0.01 [facility] Comment on above: Order Comment: Speci men Type: BLOOD SPECIMENOrdering Facility: [facility] Address: [address] [place] [address] Performed By: #### 5 7021-8 ####[facility] LABORATORYCLIA [id number] [place] [id number] [place] Nucleated RBC/100 WBC (Bld) [Ratio] 0.0 /100 WBC Normal [facility] Comment on above: Order Comment: Speci men Type: BLOOD SPECIMENOrdering Facility: [facility] Address: [address] [place] [address] Performed By: #### 5 7021-8 ####[facility] LABORATORYCLIA [id number] [place] [id number] [place] Platelet mean volume (Bld) [Entitic vol] 11.6 fL Normal 9.0-12.7 [facility] Comment on above: Order Comment: Speci men Type: BLOOD SPECIMENOrdering Facility: [facility] Address: [address] [place] [address] Performed By: #### 5 7021-8 ####GE[facility] LABORATORYCLIA [id number] [place] [id number] [place] Platelets (Bld) [#/Vol] 374 10*3/uL Normal 150-400 [facility] Comment on above: Order Comment: Speci men Type: BLOOD SPECIMENOrdering Facility: [facility] Address: [address] [place] [address] Performed By: #### 5 7021-8 ####[facility] LABORATORYCLIA [id number] [place] [id number] [place] RBC (Bld) [#/Vol] 5.07 10*6/uL Normal 4.20-6.00 [facility] Comment on above: Order Comment: Speci men Type: BLOOD SPECIMENOrdering Facility: [facility] Address: [address] [place] [address] Performed By: #### 5 7021-8 ####[facility] LABORATORYCLIA [id number] [place] [id number] [place] WBC (Bld) [#/Vol] 9.95 10*3/uL Normal 3.70-11.00 [facility] Comment on above: Order Comment: Speci men Type: BLOOD SPECIMENOrdering Facility: [facility] Address: [address] [place] [address] Performed By: #### 5 7021-8 ####[facility] LABORATORYCLIA [id number] [place] [id number] [facility] CNOVon 08-07-2023 CNOV Office Visit (GENNOM ) -- AISHA JULIEN ([id number]) 1955 M Date Time Provider Department 08/07/23 [...] and gum (more content not included)... Normal [facility] CRP [Mass/Vol] mg/L Normal <0.9 [facility] Comment on above: Order Comment: Speci men Type: BLOOD SPECIMENOrdering Facility: [facility] Address: [address] [place] [address] Performed By: #### 2 276-4, 1987-12 ####GE[facility]ANNA LABORATORYCLIA [id number] [place] [address] [place] Comprehensive metabolic 2000 panelon 08-07-2023 Albumin [Mass/Vol] 4.6 g/dL Normal 3.9-4.9 [facility] Comment on above: Order Comment: Speci men Type: BLOOD SPECIMENOrdering Facility: [facility] Address: [address] [place] [address] Performed By: #### 3 040-3, , ####GE[facility] LABORATORYCLIA [id number] [place] [id number] [place] ALP [Catalytic activity/Vol] 127 U/L High 38-113 [facility] Comment on above: Order Comment: Speci men Type: BLOOD SPECIMENOrdering Facility: [facility] Address: [address] [place] [address] Performed By: #### 3 040-3, , ####GE[facility] LABORATORYCLIA [id number] [place] [id number] [place] ALT [Catalytic activity/Vol] 35 U/L Normal 10-54 [facility] Comment on above: Order Comment: Speci men Type: BLOOD SPECIMENOrdering Facility: [facility] Address: [address] [place] [address] Performed By: #### 3 040-3, , ####GE[facility] LABORATORYCLIA [id number] [place] [id number] [place] Anion gap [Moles/Vol] 18 mmol/L Normal 9-18 [facility] Comment on above: Order Comment: Speci men Type: BLOOD SPECIMENOrdering Facility: [facility] Address: [address] [place] [address] Performed By: #### 3 040-3, , ####[facility] LABORATORYCLIA [id number] [place] [phone] [place] AST [Catalytic activity/Vol] 30 U/L Normal 14-40 [facility] Comment on above: Order Comment: Speci men Type: BLOOD SPECIMENOrdering Facility: [facility] Address: [address] [place] [address] Performed By: #### 3 040-3, , ####GE[facility] LABORATORYCLIA [id number] [place] [phone] [place] Bilirubin [Mass/Vol] 0.5 mg/dL Normal 0.2-1.3 [facility] Comment on above: Order Comment: Speci men Type: BLOOD SPECIMENOrdering Facility: [facility] Address: [address] [place] [address] Performed By: #### 3 040-3, , ####GEOVAN[facility] LABORATORYCLIA [id number] [place] [phone] [place] Calcium [Mass/Vol] 9.9 mg/dL Normal 8.5-10.2 [facility] Comment on above: Order Comment: Speci men Type: BLOOD SPECIMENOrdering Facility: [facility] Address: [address] [place] [address] Performed By: #### 3 040-3, , ####GE[facility] LABORATORYCLIA [id number] [place] [phone] [place] Chloride [Moles/Vol] 93 mmol/L Low 97-105 [facility] Comment on above: Order Comment: Speci men Type: BLOOD SPECIMENOrdering Facility: [facility] Address: [address] [place] [address] Performed By: #### 3 040-3, , ####GE[facility] LABORATORYCLIA [id number] [place] [phone] [place] CO2 [Moles/Vol] 19 mmol/L Low 22-30 [facility] Comment on above: Order Comment: Speci men Type: BLOOD SPECIMENOrdering Facility: [facility] Address: [address] [place] [address], [place] [address] Performed By: #### 3 040-3, 57647-2, ####[facility] LABORATORYCLIA [id number] [place] [phone] [place] Creatinine [Mass/Vol] 2.20 mg/dL High 0.73-1.22 [facility] Comment on above: Order Comment: Arben suarez Type: BLOOD SPECIMENOrdering Facility: [facility] Address: [address] [place] [address] Performed By: #### 3 040-3, , ####[facility] LABORATORYCLIA [id number] [place] [phone] [place] Creatinine and Glomerular filtration rate.predicted panel (S/P/Bld) 32 mL/min/1.73m??? Low >=60 [facility] Comment on above: Order Comment: Arben suarez Type: BLOOD SPECIMENOrdering Facility: [facility] Address: [address] [place] [address] Result Comment: Bailey mated Glomerular Filtration Rate [...] GFR. Performed By: #### 3 040-3, , ####[facility] LABORATORYCLIA [id number] [place] [phone] [place] Glucose [Mass/Vol] 108 mg/dL High 74-99 [facility] Comment on above: Order Comment: Arben suarez Type: BLOOD SPECIMENOrdering Facility: [facility] Address: [address] [place] [address] Result Comment: The [place] Diabetes [...] By: #### 3 040-3, , ####GE[facility] LABORATORYCLIA [id number] [place] [phone] [place] Potassium [Moles/Vol] 3.7 mmol/L Normal 3.7-5.1 [facility] Comment on above: Order Comment: Speci men Type: BLOOD SPECIMENOrdering Facility: [facility] Address: [address] [place] [address] Performed By: #### 3 040-3, , ####[facility] LABORATORYCLIA [id number] [place] [phone] [place] Protein [Mass/Vol] 8.4 g/dL High 6.3-8.0 [facility] Comment on above: Order Comment: Speci men Type: BLOOD SPECIMENOrdering Facility: [facility] Address: [address] [place] [address] Performed By: #### 3 040-3, , ####[facility] LABORATORYCLIA [id number] [place] [phone] [place] Sodium [Moles/Vol] 130 mmol/L Low 136-144 [facility] Comment on above: Order Comment: Speci men Type: BLOOD SPECIMENOrdering Facility: [facility] Address: [address] [place] [address] Performed By: #### 3 040-3, , ####[facility] LABORATORYCLIA [id number] [place] [address] [place] Urea nitrogen [Mass/Vol] 37 mg/dL High 9-24 [facility] Comment on above: Order Comment: Speci men Type: BLOOD SPECIMENOrdering Facility: [facility] Address: [address] [place] [address] Performed By: #### 3 040-3, 03020-5, 64030-3 ####[facility] LABORATORYCLIA [id number] [place] [id number] [facility] ED PROV NOTEon 08-07-2023 ED PROV NOTE Normal [facility] ED Triage Noteon 08-07-2023 ED Triage Note Normal [facility] Ferritin SerPl-mCncon 2022 Ferritin [Mass/Vol] 723.9 ng/mL High 30.3-565.7 [facility] Comment on above: Order Comment: Arben suarez Type: BLOOD SPECIMENOrdering Facility: [facility] Address: [place] [address] Performed By: #### 2 276-4, 1987-12 ####[facility] LABORATORYCLIA [id number] [place] [id number] [facility] HISTORY PHYSICALon HISTORY PHYSICAL Normal [facility] HISTORY PHYSICAL HNO ID: [id number] Author: Cleveland Alberts MD Service: ? Author [...] normal and (more content not included)... Normal [facility] Lipase SerPl-cCncon 08-07-20 Lipase [Catalytic activity/Vol] 154 U/L High 16-61 [facility] Comment on above: Order Comment: Specbrooks suarez Type: BLOOD SPECIMENOrdering Facility: [facility] Address: [address] [place] [address] Performed By: #### 3 040-3, , ####[facility] LABORATORYCLIA [id number] [place] [address] [place] Magnesium SerPl-mCncon 08-07 Magnesium [Mass/Vol] 1.6 mg/dL Low 1.7-2.3 [facility] Comment on above: Order Comment: Speci men Type: BLOOD SPECIMENOrdering Facility: [facility] Address: [address] [place] [address] Performed By: #### 3 040-3, , ####[facility] LABORATORYCLIA [id number] [place] [id number] [place] PT panel Coag (PPP)on 2022 INR Coag (PPP) [Relative time] 1.0 {INR} Normal 0.9-1.3 [facility] Comment on above: Order Comment: Arben suarez Type: BLOOD SPECIMENOrdering Facility: [facility] Address: [place] [address] Result Comment: Karissa min K Antagonist (VKA) [...] of 2.5 to 3.5 (target INR of 3).Jonott GH, et al. Chest 2012, 141:7S-47SNishimura RA, et al. [facility] 2017, 70: 252-289 Performed By: #### 3 4528-0, 43541-1 ####[facility] LABORATORYCLIA [id number] [place] [id number] [place] PT Coag (PPP) [Time] 11.6 s Normal 9.7-13.0 [facility] Comment on above: Order Comment: Specbrooks suarez Type: BLOOD SPECIMENOrdering Facility: [facility] Address: [address] [place] [address] Performed By: #### 3 4528-0, 34110-7 ####[facility] LABORATORYCLIA [id number] [place] [id number] [place] Prealb SerPl-mCncon 08-07-20 23 Prealbumin [Mass/Vol] 18 mg/dL Normal 17-36 [facility] Comment on above: Order Comment: Speci men Type: BLOOD SPECIMENOrdering Facility: [facility] Address: [address] [place] [address] Performed By: #### 3 034-6, 26953-5 ####[facility] LABCLIA [id number] KENNYAnn [facility] HOSPITALK [address] [address] [place] TYPE + SCREENon 08-07-2023 ABO A Normal [facility] Comment on above: Order Comment: Speci men Type: BLOOD SPECIMENOrdering Facility: [facility] Address: [address] [place] [address] Performed By: #### T SCR ####[facility] [place] BLOOD BANKCLIA [id number] [place] [address] [place] HISTORICAL AB SCR STATUS Negative [facility] Comment on above: Order Comment: Speci men Type: BLOOD SPECIMENOrdering Facility: [facility] Address: [address] [place] [address] Performed By: #### T SCR ####[facility] [place] BLOOD BANKCLIA [id number] [place] [address] [place] Rh Nom (Bld) Positive [facility] Comment on above: Order Comment: Speci men Type: BLOOD SPECIMENOrdering Facility: [facility] Address: [address] [place] [address] Performed By: #### T SCR ####[facility] BLOOD BANKCLIA [id number] [place] [id number] [place] TYPE AND SCREEN EXPIRATION 08/10/2023 23:59 [facility] Comment on above: Order Comment: Speci men Type: BLOOD SPECIMENOrdering Facility: [facility] Address: [address] [place] [address] Performed By: #### T SCR ####[place] BLOOD BANKCLIA [id number] [place] [id number] [place] Transferrin SerPl-mCncon Transferrin [Mass/Vol] 250 mg/dL Normal 200-360 [facility] Comment on above: Order Comment: Speci men Type: BLOOD SPECIMENOrdering Facility: [facility] Address: [address] [facility] [place] [address] Performed By: #### 3 [id number] ####[facility] LABCLIA [id number] [facility] [id number] [place], [place] [id number] [place] X[place] ABDOMEN 1V SUPINEon 08-07 XR ABDOMEN 1V SUPINE Normal [facility] aPTT PPPon 08-07-2023 aPTT Coag (PPP) [Time] 29.9 s Normal 23.0-32.4 [facility] Comment on above: Order Comment: Speci men Type: BLOOD SPECIMENOrdering Facility: [facility] Address: [place] [address] Performed By: #### 3 4528-0, 68893-9 ####[facility] LABORATORYCLIA [id number] [address] OF [place] Judy 08-05-2023 CNPN Telephone ([id number]) -- AISHA JULIEN ([id number]) 1955 M Date Time Provider Department 08/05/23 [facility] [id number] During your visit today, we recorded the [...] appointment. *Requested images to be pushed from [employer] 08/05. Also faxed release of information to patients PCP - Dr. Cannon in [facility]. Allergies As of Date: 08/05/2023 (No [...] Encounter Status:Closed by JESSIE ZAMORA on 08/05/23 [facility] Telephone (GASTNO) -- AISHA JULIEN ([id number]) 1955 M Date Time Provider Department 08/05/23 BETY AMIN During your visit today, we recorded the following information about you: Ирина Samuel RN 08/05/2023 4:35 PM Signed Referred from Dr. Linder for EUS w/ FNA for duodenal mass. Dr. Amin please review and advise. H AND P, meds updated in [facility]. Will also forward to Dr. Alberts [...] control regim (more content not included)... Normal [facility] CNPAisha 07-29-2023 [facility] Telephone ([id number]) -- AISHA JULIEN ([id number]) 1955 M Date Time Provider Department 07/29/23 [facility] [id number] During your visit today, we recorded the following information about you: Vicki Rosario 07/29/2023 3:53 PM Addendum New patient referral from Dr. Linder's office ([phone]) to Dr. Alberts for Duodenal Mass. Contacted the office to resend records. Please advise on scheduling Allergies As of Date: 07/29/2023 (Not on File) Date Reviewed: Never Reviewed Reason for Visit: Appointment [186] Problem List As Of Date: 07/29/2023 (None) Encounter Status:Closed by VICKI ROSARIO on 07/29/23 Normal [facility] Basic Metabolic Panelon 12-0 Anion gap [Moles/Vol] 11.9 mmol/L Normal 6.0-15.0 [facility] Comment on above: Performed By: #### C BC, BMP ####[address] [place] [address] [place] Calcium [Mass/Vol] 8.5 mg/dL Low 8.6-10.3 [facility] Comment on above: Performed By: #### C BC, BMP ####[address] [place] [address] [place] Chloride [Moles/Vol] 105 mmol/L Normal 98-107 [facility] Comment on above: Performed By: #### C BC, BMP ####[address] [place] [address] [place] CO2 [Moles/Vol] 26.0 mmol/L Normal 21.0-31.0 [facility] Comment on above: Performed By: #### C BC, BMP ####[address] [place] [address] [place] Creatinine [Mass/Vol] 1.71 mg/dL Significan t change up 0.70-1.30 [facility] Comment on above: Performed By: #### C BC, BMP ####[facility] [place] [address] [place] Creatinine Clr Calc Pharmacy 41.35 Normal [facility] Comment on above: Result Comment: PERF ORMED BY: [facility] [address] [place] [address] PATHOLOGIST PLATE DRYING MACHINE TENDER RAHEL TREVINO M.D. Performed By: #### C BC, BMP ####[place] [place] [id number] [facility] [[email or web address]] GFR/1.73 sq M.predicted MDRD (S/P/Bld) [Vol rate/Area] 43.064 mL/min/{1.73_m2} Normal [facility] Comment on above: Performed By: #### C SADAF, BMP ####[facility] [place] [phone] [facility] [[email or web address]] Glucose [Mass/Vol] 115 mg/dL High 70-100 [facility] Comment on above: Result Comment: Festus Glucose Reference Range is dependent on time and content of last meal. Glucose of more than 200 mg/dL in a nonstressed, ambulatory subject supports the diagnosis of Diabetes Mellitus. ADA recommended reference range Performed By: #### C SADAF, BMP ####[address] [place] [phone] [facility] [[email or web address]] Potassium [Moles/Vol] 3.9 mmol/L Normal 3.5-5.1 [facility] Comment on above: Performed By: #### C SADAF, BMP ####[place] [id number] [facility] [[email or web address]] Sodium [Moles/Vol] 139 mmol/L Normal 136-145 [facility] Comment on above: Performed By: #### C SADAF, BMP ####[place] [place] [phone] [facility] [[email or web address]] Urea nitrogen [Mass/Vol] 29 mg/dL High 7-25 [facility] Comment on above: Performed By: #### C SADAF, BMP ####[place] [id number] [facility] [[email or web address]] Basophils Auto (Bld) [#/Vol] Ordered By: Gela Eller on 07-26-2023 Basophils (Bld) [#/Vol] 0.0 10*3/uL 0.0-0.2 [facility] Basophils/100 WBC Auto (Bld) Ordered By: Gela Eller on 07-26-2023 Basophils/100 WBC (Bld) 0.9 % . [facility] Calcium [Mass/volume] in Ser um or PlasmaOrdered By: Gela Eller on 07-26-2023 Calcium [Mass/Vol] 8.5 mg/dL 8.6-10.3 [facility] Carbon dioxide, total [Moles /volume] in Serum or PlasmaOrdered By: Gela Eller on 07-26-2023 CO2 [Moles/Vol] 26.0 mmol/L 21.0-31.0 [facility] Chloride [Moles/volume] in S sadi or PlasmaOrdered By: Gela Eller on 07-26-2023 Chloride [Moles/Vol] 105 mmol/L 98-107 [facility] Complete Blood Count Auto Di ffon 07-26-2023 Basophils (Bld) [#/Vol] 0.0 10*3/uL Normal 0.0-0.2 [facility] Comment on above: Result Comment: PERF ORMED BY: [facility] [address] [facility] [place] [address] PATHOLOGIST PLATE DRYING MACHINE TENDER RAHEL TREVINO M.D. Performed By: #### C SADAF, BMP ####[address] Basophils/100 WBC (Bld) 0.9 % Normal . [facility] Comment on above: Performed By: #### C SADAF, BMP ####[address] Eosinophils (Bld) [#/Vol] 0.4 10*3/uL Normal 0.0-0.45 [facility] Comment on above: Performed By: #### C SADAF, BMP ####[address] Eosinophils/100 WBC (Bld) 7.7 % Normal . [facility] Comment on above: Performed By: #### C SADAF, BMP ####[place] [id number] [facility] [[email or web address]] Erythrocyte distribution width (RBC) [Ratio] 12.1 % Normal 12.0-14.8 [facility] Comment on above: Performed By: #### C SADAF, BMP ####[place] [id number] [facility] [[email or web address]] Hematocrit (Bld) [Volume fraction] 31.2 % Low 38.8-50.0 [facility] Comment on above: Performed By: #### C SADAF, BMP ####[address] Hemoglobin (Bld) [Mass/Vol] 10.6 g/dL Low 13.0-17.0 [facility] Comment on above: Performed By: #### C SADAF, BMP ####[address] Lymphocytes (Bld) [#/Vol] 0.8 10*3/uL Low 1.00-4.8 [facility] Comment on above: Performed By: #### C ASDAF, BMP ####[address] Lymphocytes/100 WBC (Bld) 15.8 % Normal . [facility] Comment on above: Performed By: #### C SADAF, BMP ####[address] MCH (RBC) [Entitic mass] 30.1 pg Normal 27.5-35.2 [facility] Comment on above: Performed By: #### C SADAF, BMP ####[address] MCV (RBC) [Entitic vol] 88.6 fL Normal 83.5-101 [facility] Comment on above: Performed By: #### C SADAF, BMP ####[address] Mean Corpuscular HGB Conc 34.0 g/dL Normal 32.5-35.6 [facility] Comment on above: Performed By: #### C SADAF, BMP ####[address] Monocytes (Bld) [#/Vol] 1.1 10*3/uL High 0.0-0.8 [facility] Comment on above: Performed By: #### C SADAF, BMP ####[address] Monocytes/100 WBC (Bld) 22.7 % Normal . [facility] Comment on above: Performed By: #### C SADAF, BMP ####[address] Neutrophils (Bld) [#/Vol] 2.6 10*3/uL Normal 1.8-7.7 [facility] Comment on above: Performed By: #### C SADAF, BMP ####[address] Neutrophils/100 WBC (Bld) 52.9 % Normal . [facility] Comment on above: Performed By: #### C SADAF, BMP ####[address] NRBC% 0.2 /100{WBC} Normal 0-0.5 [facility] Comment on above: Performed By: #### C SADAF, BMP ####[address] Platelet mean volume (Bld) [Entitic vol] 10.2 fL High 6.6-10.1 [facility] Comment on above: Performed By: #### C SADAF, BMP ####[address] Platelets (Bld) [#/Vol] 190 10*3/uL Normal 150-450 [facility] Comment on above: Performed By: #### C SADAF, BMP ####[address] RBC (Bld) [#/Vol] 3.52 10*6/uL Low 3.90-5.60 [facility] Comment on above: Performed By: #### C SADAF, BMP ####[address] WBC (Bld) [#/Vol] 5.0 10*3/uL Normal 4.1-10.5 [facility] Comment on above: Performed By: #### C SADAF, BMP ####[facility] [id number] [place] [address] [facility] [[email or web address]] Creatinine [Mass/volume] in Serum or PlasmaOrdered By: Gela Eller on 07-26-2023 Creatinine [Mass/Vol] 1.71 mg/dL 0.70-1.30 [facility] Comment on above: Delta: 2.86 on 07/25 Eosinophils Auto (Bld) [#/Vo l]Ordered By: Gela Eller on 07-26-2023 Eosinophils (Bld) [#/Vol] 0.4 10*3/uL 0.0-0.45 [facility] Eosinophils/100 WBC Auto (Bl d)Ordered By: Gela Eller on 07-26-2023 Eosinophils/100 WBC (Bld) 7.7 % . [facility] Erythrocyte distribution wid th Auto (RBC) [Ratio]Ordered By: Gela Eller on 07-26-2023 Erythrocyte distribution width (RBC) [Ratio] 12.1 % 12.0-14.8 [facility] Glucose [Mass/volume] in Ser um or PlasmaOrdered By: Gela Eller on 07-26-2023 Glucose [Mass/Vol] 115 mg/dL 70-100 [facility] Comment on above: ADA recommended refe rence rangeRandom Glucose Reference Range is dependent on time and content of last meal. Glucose of more than 200 mg/dL in a nonstressed, ambulatory subject supports the diagnosis of Diabetes Mellitus. Hematocrit Auto (Bld) [Volum e fraction]Ordered By: Gela Eller on 07-26-2023 Hematocrit (Bld) [Volume fraction] 31.2 % 38.8-50.0 [facility] Hemoglobin [Mass/volume] in BloodOrdered By: Gela Eller on 07-26-2023 Hemoglobin (Bld) [Mass/Vol] 10.6 g/dL 13.0-17.0 [facility] Leukocytes [#/volume] correc johnnie for nucleated erythrocytes in Blood by Automated counOrdered By: Gela Eller on 07-26-2023 WBC corrected for nucl RBC Auto (Bld) [#/Vol] 5.0 10*3/uL 4.1-10.5 [facility] Lymphocytes Auto (Bld) [#/Vo l]Ordered By: Gela Eller on 07-26-2023 Lymphocytes (Bld) [#/Vol] 0.8 10*3/uL 1.00-4.8 [facility] Lymphocytes/100 WBC Auto (Bl d)Ordered By: Gela Eller on 07-26-2023 Lymphocytes/100 WBC (Bld) 15.8 % . [facility] MCH Auto (RBC) [Entitic mass ]Ordered By: Gela Eller on 07-26-2023 MCH (RBC) [Entitic mass] 30.1 pg 27.5-35.2 [facility] MCHC Auto (RBC) [Mass/Vol]Or dered By: Gela Eller on 07-26-2023 MCHC (RBC) [Mass/Vol] 34.0 g/dL 32.5-35.6 [facility] MCV Auto (RBC) [Entitic vol] Ordered By: Gela Eller on 07-26-2023 MCV (RBC) [Entitic vol] 88.6 fL 83.5-101 [facility] Monocytes Auto (Bld) [#/Vol] Ordered By: Gela Eller on 07-26-2023 Monocytes (Bld) [#/Vol] 1.1 10*3/uL 0.0-0.8 [facility] Monocytes/100 WBC Auto (Bld) Ordered By: Gela Eller on 07-26-2023 Monocytes/100 WBC (Bld) 22.7 % . [facility] Neutrophils Auto (Bld) [#/Vo l]Ordered By: Gela Eller on 07-26-2023 Neutrophils (Bld) [#/Vol] 2.6 10*3/uL 1.8-7.7 [facility] Neutrophils/100 WBC Auto (Bl d)Ordered By: Gela Eller on 07-26-2023 Neutrophils/100 WBC (Bld) 52.9 % . [facility] No Panel InformationOrdered By: Gela Eller on 07-26-2023 Estimated GFR (CKD-EPI) 43.064 mL/Min [facility] Creatinine Clearance (Chem 41.35 [facility] Nucleated erythrocytes [Pres ence] in Blood by Automated countOrdered By: Gela Eller on 07-26-2023 Nucleated RBC Auto Ql (Bld) 0.2 /100{WBC} 0-0.5 [facility] Platelet mean volume Auto (B ld) [Entitic vol]Ordered By: Gela Eller on 07-26-2023 Platelet mean volume (Bld) [Entitic vol] 10.2 fL 6.6-10.1 [facility] Platelets Auto (Bld) [#/Vol] Ordered By: Geal Eller on 07-26-2023 Platelets (Bld) [#/Vol] 190 10*3/uL 150-450 [facility] Potassium [Moles/volume] in Serum or PlasmaOrdered By: Gela Eller on 07-26-2023 Potassium [Moles/Vol] 3.9 mmol/L 3.5-5.1 [facility] RBC Auto (Bld) [#/Vol]Ordere d By: Gela Eller on 07-26-2023 RBC (Bld) [#/Vol] 3.52 10*6/uL 3.90-5.60 [facility] Serum or plasma anion gap de terminationOrdered By: Gela Eller on 07-26-2023 Anion gap [Moles/Vol] 11.9 mmol/L 6.0-15.0 [facility] Sodium [Moles/volume] in Ser um or PlasmaOrdered By: Gela Eller on 07-26-2023 Sodium [Moles/Vol] 139 mmol/L 136-145 [facility] Urea nitrogen [Mass/volume] in Serum or PlasmaOrdered By: Gela Rhoadese on 07-26-2023 Urea nitrogen [Mass/Vol] 29 mg/dL 7-25 [facility] WBC Auto (Bld) [#/Vol]Ordere d By: Gela Eller on 07-26-2023 WBC (Bld) [#/Vol] 5.0 10*3/uL 4.1-10.5 [facility] Alanine aminotransferase [En zymatic activity/volume] in Serum or PlasmaOrdered By: Gela Eller on 07-25-2023 ALT [Catalytic activity/Vol] 9 U/L 7-52 [facility] Albumin [Mass/volume] in Ser um or Plasma by Bromocresol green (BCG) dye binding methoOrdered By: Gela Eller on 07-25-2023 Albumin BCG dye [Mass/Vol] 3.4 g/dL 3.5-5.7 [facility] Alkaline phosphatase [Enzyma tic activity/volume] in Serum or PlasmaOrdered By: Gela Eller on 07-25-2023 ALP [Catalytic activity/Vol] 60 U/L 34-104 [facility] Aspartate aminotransferase [ Enzymatic activity/volume] in Serum or PlasmaOrdered By: Gela Eller on 07-25-2023 AST [Catalytic activity/Vol] 16 U/L 13-39 [facility] Basic Metabolic Panelon 12-0 Anion gap [Moles/Vol] 11.8 mmol/L Normal 6.0-15.0 [facility] Comment on above: Order Comment: Comme nt pls call w K level Performed By: #### B MP ####[place] [address] [place] [phone] [facility] [[email or web address]] Calcium [Mass/Vol] 8.3 mg/dL Low 8.6-10.3 [facility] Comment on above: Order Comment: Comme nt pls call w K level Performed By: #### B MP ####[place] [address] [place] [phone] [facility] [[email or web address]] Chloride [Moles/Vol] 97 mmol/L Low 98-107 [facility] Comment on above: Order Comment: Comme nt pls call w K level Performed By: #### B MP ####[facility] [place] [phone] [facility] [[email or web address]] CO2 [Moles/Vol] 31.8 mmol/L High 21.0-31.0 [facility] Comment on above: Order Comment: Comme nt pls call w K level Performed By: #### B MP ####[facility] [place] [address] [facility] [[email or web address]] Creatinine [Mass/Vol] 3.42 mg/dL Significan t change up 0.70-1.30 [facility] Comment on above: Order Comment: Comme nt pls call w K level Performed By: #### B MP ####[address] [place] [address] [place] Creatinine Clr Calc Pharmacy 20.67 [facility] Comment on above: Order Comment: Comme nt pls call w K level Result Comment: PERF ORMED BY: [facility] [address] [place] [id number] PATHOLOGIST PLATE DRYING MACHINE TENDER RAHEL TREVINO M.D. Performed By: #### B MP ####[address] [place] [address] [facility] [[email or web address]] GFR/1.73 sq M.predicted MDRD (S/P/Bld) [Vol rate/Area] 18.745 mL/min/{1.73_m2} [facility] [place] Comment on above: Order Comment: Comme nt pls call w K level Performed By: #### B MP ####[address] [address] [facility] [[email or web address]] Glucose [Mass/Vol] 86 mg/dL Normal 70-100 [facility] Comment on above: Order Comment: Comme nt pls call w K level Result Comment: [facility] Glucose Reference Range is dependent on time and content of last meal. Glucose of more than 200 mg/dL in a nonstressed, ambulatory subject supports the diagnosis of Diabetes Mellitus. ADA recommended reference range Performed By: #### B MP ####[address] [place] [address] [facility] [[email or web address]] Potassium [Moles/Vol] 3.6 mmol/L Normal 3.5-5.1 [facility] Comment on above: Order Comment: Comme nt pls call w K level Performed By: #### B MP ####[address] [address] [facility] [[email or web address]] Sodium [Moles/Vol] 137 mmol/L Normal 136-145 [facility] Comment on above: Order Comment: Comme nt pls call w K level Performed By: #### B MP ####[facility] [id number] Urea nitrogen [Mass/Vol] 50 mg/dL High 7-25 [facility] Comment on above: Order Comment: Comme nt pls call w K level Performed By: #### B MP ####[facility] [id number] [place] [address] Bilirubin.total [Mass/volume ] in Serum or PlasmaOrdered By: Gela Eller on 07-25-2023 Bilirubin [Mass/Vol] 0.7 mg/dL 0.3-1.0 [facility] Complete Blood Count Auto Di ffon 07-25-2023 Basophils (Bld) [#/Vol] 0.1 10*3/uL Normal 0.0-0.2 [facility] Comment on above: Result Comment: PERF ORMED BY: [place] [address] PATHOLOGIST PLATE DRYING MACHINE TENDER RAHEL TREVINO M.D. Performed By: #### C MP, CBC #### [facility] [address] Basophils/100 WBC (Bld) 0.9 % Normal . [facility] Comment on above: Performed By: #### C MP, CBC #### [facility] [address] [place] [address] [place] Eosinophils (Bld) [#/Vol] 0.5 10*3/uL High 0.0-0.45 [facility] Comment on above: Performed By: #### C MP, CBC #### [facility] [address] [place] [address] [place] Eosinophils/100 WBC (Bld) 7.7 % Normal . [facility] Comment on above: Performed By: #### C MP, CBC #### [facility] [address] Erythrocyte distribution width (RBC) [Ratio] 12.4 % Normal 12.0-14.8 [facility] Comment on above: Performed By: #### C MP, CBC #### [facility] [address] Hematocrit (Bld) [Volume fraction] 33.8 % Low 38.8-50.0 [facility] Comment on above: Performed By: #### C MP, CBC #### [facility] [address] Hemoglobin (Bld) [Mass/Vol] 11.3 g/dL Low 13.0-17.0 [facility] Comment on above: Performed By: #### C MP, CBC #### [facility] [address] Lymphocytes (Bld) [#/Vol] 0.6 10*3/uL Low 1.00-4.8 [facility] Comment on above: Performed By: #### C MP, CBC #### [facility] [address] Lymphocytes/100 WBC (Bld) 9.8 % Normal . [facility] Comment on above: Performed By: #### C MP, CBC #### [facility] [address] [place] [address] [place] MCH (RBC) [Entitic mass] 29.8 pg Normal 27.5-35.2 [facility] Comment on above: Performed By: #### C MP, CBC #### [facility] [address] MCV (RBC) [Entitic vol] 89.0 fL Normal 83.5-101 [facility] Comment on above: Performed By: #### C MP, CBC #### [facility] [address] Mean Corpuscular HGB Conc 33.5 g/dL Normal 32.5-35.6 [facility] Comment on above: Performed By: #### C MP, CBC #### [facility] [address] Monocytes (Bld) [#/Vol] 1.3 10*3/uL High 0.0-0.8 [facility] Comment on above: Performed By: #### C MP, CBC #### [facility] [address] [place] [address] [place] Monocytes/100 WBC (Bld) 21.3 % Normal . [facility] Comment on above: Performed By: #### C MP, CBC #### [facility] [address] Neutrophils (Bld) [#/Vol] 3.6 10*3/uL Normal 1.8-7.7 [facility] Comment on above: Performed By: #### C MP, CBC #### [facility] [address] Neutrophils/100 WBC (Bld) 60.3 % Normal . [facility] Comment on above: Performed By: #### C MP, CBC #### [facility] [address] NRBC% 0.1 /100{WBC} Normal 0-0.5 [facility] Comment on above: Performed By: #### C MP, CBC #### [facility] [address] Platelet mean volume (Bld) [Entitic vol] 10.7 fL High 6.6-10.1 [facility] Comment on above: Performed By: #### C MP, CBC #### [facility] [address] [place] [address] [place] Platelets (Bld) [#/Vol] 188 10*3/uL Significant change down 150-450 [facility] Comment on above: Performed By: #### C MP, CBC #### [facility] [address] [place] [address] [place] RBC (Bld) [#/Vol] 3.80 10*6/uL Low 3.90-5.60 [facility] Comment on above: Performed By: #### C MP, CBC #### [facility] [address] WBC (Bld) [#/Vol] 5.9 10*3/uL Normal 4.1-10.5 [facility] Comment on above: Performed By: #### C MP, CBC #### [facility] [address] Comprehensive Metabolic Pane jefry 07-25-2023 Albumin [Mass/Vol] 3.4 g/dL Low 3.5-5.7 [facility] Comment on above: Performed By: #### C MP, CBC #### [facility] [address] Albumin/Globulin [Mass ratio] 1.3 {ratio} Normal [facility] Comment on above: Performed By: #### C MP, CBC #### [facility] [address] ALP [Catalytic activity/Vol] 60 U/L Normal 34-104 [facility] Comment on above: Performed By: #### C MP, CBC #### [facility] [address] ALT [Catalytic activity/Vol] 9 U/L Normal 7-52 [facility] Comment on above: Performed By: #### C MP, CBC #### [facility] [address] Anion gap [Moles/Vol] 11.5 mmol/L Normal 6.0-15.0 [facility] Comment on above: Performed By: #### C MP, CBC #### [facility] [address] AST [Catalytic activity/Vol] 16 U/L Normal 13-39 [facility] Comment on above: Performed By: #### C MP, CBC #### [facility] [address] [place] [address] [place] Bilirubin [Mass/Vol] 0.7 mg/dL Normal 0.3-1.0 [facility] Comment on above: Performed By: #### C MP, CBC #### [facility] [address] Calcium [Mass/Vol] 8.6 mg/dL Normal 8.6-10.3 [facility] Comment on above: Performed By: #### C MP, CBC #### [facility] [address] [place] [address] [place] Chloride [Moles/Vol] 98 mmol/L Normal 98-107 [facility] Comment on above: Performed By: #### C MP, CBC #### [facility] [address] CO2 [Moles/Vol] 31.4 mmol/L High 21.0-31.0 [facility] Comment on above: Performed By: #### C MP, CBC #### [address] Creatinine [Mass/Vol] 2.86 mg/dL Significan t change up 0.70-1.30 [facility] Comment on above: Performed By: #### C MP, CBC #### [address] Creatinine Clr Calc Pharmacy 24.72 Normal [facility] Comment on above: Result Comment: PERF ORMED BY: [place] [address] PATHOLOGIST PLATE DRYING MACHINE TENDER RAHEL TREVINO M.D. Performed By: #### C MP, CBC #### [address] GFR/1.73 sq M.predicted MDRD (S/P/Bld) [Vol rate/Area] 23.231 mL/min/{1.73_m2} Normal [facility] Comment on above: Performed By: #### C MP, CBC #### [facility] [address] [place] [address] [place] Globulin (S) [Mass/Vol] 2.7 g/dL Normal [facility] Comment on above: Performed By: #### C MP, CBC #### [address] Glucose [Mass/Vol] 81 mg/dL Normal 70-100 [facility] Comment on above: Result Comment: [facility] Glucose Reference Range is dependent on time and content of last meal. Glucose of more than 200 mg/dL in a nonstressed, ambulatory subject supports the diagnosis of Diabetes Mellitus. ADA recommended reference range Performed By: #### C MP, CBC #### [facility] [address] Potassium [Moles/Vol] 3.9 mmol/L Normal 3.5-5.1 [facility] Comment on above: Performed By: #### C MP, CBC #### [facility] [address] Protein [Mass/Vol] 6.1 g/dL Significant change down 6.4-8.9 [facility] Comment on above: Performed By: #### C MP, CBC #### [facility] [address] Sodium [Moles/Vol] 137 mmol/L Normal 136-145 [facility] Comment on above: Performed By: #### C MP, CBC #### [facility] [address] Urea nitrogen [Mass/Vol] 44 mg/dL High 7-25 [facility] Comment on above: Performed By: #### C MP, CBC #### [facility] [address] Creatinine, Urine (Random)on 07-25-2023 Creatinine, Urine (Random) 141.0 mg/dL High 14.0-26.0 [facility] Comment on above: Performed By: #### U NA UCREA #### [facility] [address] Globulin Calc (S) [Mass/Vol] Ordered By: Gela Eller on 07-25-2023 Globulin (S) [Mass/Vol] 2.7 g/dL [facility] Jefry 07-25-2023 L ------ Specimen: [id number] Received: 07/25/23 Status: ANT Erazo Num: [id number] Spec Type: Surgical Subm Dr: Nohemy Linder MD Tissues: A Duodenum - Biopsy (DUODENUM BX) B Gastric Biopsy (GASTRIC BX) Procedures: HE/4, Gross/Micro L4/2, H PYLORI Age/ Patient Sex Location Account Attending Physician Aisha Julien/M [id number] Gela Eller MD SPEC NUM: [id number] RECD: 07/25/23 STATUS: ANT GALLEGOAshley NUM: [id number] ALLISON: 07/25/23- [facility] DR: Nohemy Linder MD ENTERED: 07/25/[address]: SPEC TYPE: Surgical DEPT: S ORDERED: [...] infection Clinical Information Dizzy, abnormal labs Specimen: [id number] Received: 07/25/23 Status: ANT Erazo Num: [id number] Spec Type: Surgical Subm Dr: Nohemy Linder MD Tissues: A Duodenum - Biopsy (DUODENUM BX) B Gastric Biopsy (GASTRIC BX) Procedures: HE/4, Gross/Micro L4/2, H PYLORI Patient: Aisha Julien [id number] (Continued) Specimen: [id number] Received: 07/25/23 (Continued) Signed (signature on file) Vignesh Koehler MD 07/28/231999 Specimen: [id number] Received: 07/25/23 Status: ANT Erazo Num: [id number] Spec Type: Surgical Subm Dr: Nohemy Linder MD Tissues: A Duodenum - Biopsy (DUODENUM BX) B Gastric Biopsy (GASTRIC BX) Procedures: HE/4, Gross/Micro L4/2, H PYLORI Patient: Aisha Julien Naveen [id number] (Continued) Specimen: [id number] Received: 07/25/23 (Continued) Gross Description A. Received [...] microscopic examination confirms the diagnosis. CPT Codes 58502t1, 61843e1 Specimen: [id number] Received: 07/25/23 Status: ANT Gallegoashley Num: [id number] Spec Type: Surgical Subm Dr: Nohemy Linder MD Tissues: A Duodenum - Biopsy (DUODENUM BX) B Gastric Biopsy (GASTRIC BX) Procedures: HE/4, Gross/Micro L4/2, H PYLORI Patient: Aisha Julien [id number] (Continued) Signed (signature on file) Vignesh Koehler MD 07/28/231999 Normal [facility] Protein [Mass/volume] in Ser um or PlasmaOrdered By: Gela Eller on 07-25-2023 Protein [Mass/Vol] 6.1 g/dL 6.4-8.9 [facility] Comment on above: Delta: 7.8 on -1228 Serum or plasma albumin/glob ulin mass ratioOrdered By: Gela Eller on 07-25-2023 Albumin/Globulin [Mass ratio] 1.3 {ratio} [facility] Sodium, Urine (Random)on Sodium (U) [Moles/Vol] 41 mmol/L Normal [facility] Comment on above: Result Comment: No r eference range established PERFORMED BY: [place] [address] PATHOLOGIST PLATE DRYING MACHINE TENDER RAHEL TREVINO M.D. Performed By: #### U CHERRY HAN #### [address] Alanine aminotransferase [En zymatic activity/volume] in Serum or PlasmaOrdered By: Jean Paul Gutiérrez on 07-24-2023 ALT [Catalytic activity/Vol] 12 U/L 7-52 [facility] Albumin [Mass/volume] in Ser um or Plasma by Bromocresol green (BCG) dye binding methoOrdered By: Jean Paul Gutiérrez on 07-24-2023 Albumin BCG dye [Mass/Vol] 4.3 g/dL 3.5-5.7 [facility] Alkaline phosphatase [Enzyma tic activity/volume] in Serum or PlasmaOrdered By: Jean Paul Gutiérrez on 07-24-2023 ALP [Catalytic activity/Vol] 72 U/L 34-104 [facility] Aspartate aminotransferase [ Enzymatic activity/volume] in Serum or PlasmaOrdered By: Jean Paul Gutiérrez on 07-24-2023 AST [Catalytic activity/Vol] 24 U/L 13-39 [facility] Automated erythrocytes count in urine sediment (number/area)Ordered By: Jean Paul Gutiérrez on 07-24-2023 RBC Auto (Urine sed) [#/Area] 5-9 [HPF] 0-4 [facility] Automated leukocytes count i n urine sediment (number/area)Ordered By: Jean Paul Gutiérrez on 07-24-2023 WBC Auto (Urine sed) [#/Area] 0-1 [HPF] 0-4 [facility] Basic Metabolic Panelon 06-27 Anion gap [Moles/Vol] 18.0 mmol/L High 6.0-15.0 [facility] Comment on above: Performed By: #### C MP, CBC #### [facility] [address] Calcium [Mass/Vol] 9.6 mg/dL Normal 8.6-10.3 [facility] Comment on above: Performed By: #### C MP, CBC #### [facility] [address] [place] [address] [place] Chloride [Moles/Vol] 84 mmol/L Low 98-107 [facility] Comment on above: Performed By: #### C MP, CBC #### [facility] [address] [place] [address] [place] CO2 [Moles/Vol] 34.9 mmol/L High 21.0-31.0 [facility] Comment on above: Performed By: #### C MP, CBC #### [facility] [address] [place] [address] [place] Creatinine [Mass/Vol] 4.59 mg/dL High 0.70-1.30 [facility] Comment on above: Performed By: #### C MP, CBC #### [facility] [address] [place] [address] [place] Creatinine Clr Calc Pharmacy 15.40 [facility] Comment on above: Performed By: #### C MP, CBC #### [facility] [address] [place] [address] [place] GFR/1.73 sq M.predicted MDRD (S/P/Bld) [Vol rate/Area] 13.168 mL/min/{1.73_m2} Normal [facility] Comment on above: Performed By: #### C MP, CBC #### [facility] [address] [place] [address] Glucose [Mass/Vol] 128 mg/dL High 70-100 [facility] Comment on above: Result Comment: Festus Glucose Reference Range is dependent on time and content of last meal. Glucose of more than 200 mg/dL in a nonstressed, ambulatory subject supports the diagnosis of Diabetes Mellitus. ADA recommended reference range Performed By: #### C MP, CBC #### [address] Potassium [Moles/Vol] 2.9 mmol/L Off scale low 3.5-5.1 [facility] Comment on above: Result Comment: Crit ical Result Called to and read back by: ANDREAS CARABALLO at: 07/24/2023 13:30:58 by:MLG Performed By: #### C MP, CBC #### [place] [address] [place] Sodium [Moles/Vol] 134 mmol/L Low 136-145 [facility] Comment on above: Performed By: #### C MP, CBC #### [facility] [address] [place] [address] [place] Urea nitrogen [Mass/Vol] 56 mg/dL High 7-25 [facility] Comment on above: Performed By: #### C MP, CBC #### [place] [address] [place] Basophils Auto (Bld) [#/Vol] Ordered By: Jean Paul Gutiérrez on 07-24-2023 Basophils (Bld) [#/Vol] 0.0 10*3/uL 0.0-0.2 [facility] Basophils/100 WBC Auto (Bld) Ordered By: Jean Paul Gutiérrez on 07-24-2023 Basophils/100 WBC (Bld) 0.5 % . [facility] Bilirubin Test strip Ql (U)O rdered By: Jean Paul Gutiérrez on 07-24-2023 Bilirubin Ql (U) Negative Negative [facility] Bilirubin.direct [Mass/volum e] in Serum or PlasmaOrdered By: Jean Paul Gutiérrez on 07-24-2023 Bilirubin.direct [Mass/Vol] 0.20 mg/dL 0.03-0.18 [facility] Bilirubin.total [Mass/volume ] in Serum or PlasmaOrdered By: Jean Paul Gutiérrez on 07-24-2023 Bilirubin [Mass/Vol] 0.8 mg/dL 0.3-1.[address] [facility] [address] abdomen pelvis wo conon 1 09-23-2022 CT abdomen pelvis wo con [facility] [place] [address] CT Scan Report Signed Patient: Aisha Julien MR#: [id number] 79 : 1955 Acct:[id number] Age/Sex: 68 / M ADM Date: 07/24/23 Loc: ER Room: Type: [facility] ER Attending Dr: Copies to: Jean Paul [...] 07/24/2023 Impression dictated by: Lebron Santa Jr., DAlmaOAlma07/24/2023 2:43 PM Dictation Location: [place] [address] Transcribed By: [facility] 07/24/23 1443 Dictated By: Lebron Santa Jr, DO 07/24/23 1428 Signed By: 07/24/23 1443 Normal [facility] Calcium [Mass/volume] in Ser um or PlasmaOrdered By: Jean Paul Gutiérrez on 07-24-2023 Calcium [Mass/Vol] 9.6 mg/dL 8.6-10.3 [facility] Carbon dioxide, total [Moles /volume] in Serum or PlasmaOrdered By: Jean Paul Gutiérrez on 07-24-2023 CO2 [Moles/Vol] 34.9 mmol/L 21.0-31.0 [facility] Chloride [Moles/volume] in S sadi or PlasmaOrdered By: Jean Paul Gutiérrez on 07-24-2023 Chloride [Moles/Vol] 84 mmol/L 98-107 [facility] Color Auto (U)Ordered By: Vincent Gutiérrez on 07-24-2023 Color (U) Yellow Yellow [facility] Complete Blood Count Auto Di ffon 07-24-2023 Basophils (Bld) [#/Vol] 0.0 10*3/uL Normal 0.0-0.2 [facility] Comment on above: Result Comment: PERF ORMED BY: [place] [address] PATHOLOGIST PLATE DRYING MACHINE TENDER RAHEL TREVINO M.D. Performed By: #### C MP, CBC #### [address] Basophils/100 WBC (Bld) 0.5 % Normal . [facility] Comment on above: Performed By: #### C MP, CBC #### [facility] [address] [place] [address] Eosinophils (Bld) [#/Vol] 0.1 10*3/uL Normal 0.0-0.45 [facility] Comment on above: Performed By: #### C MP, CBC #### [address] Eosinophils/100 WBC (Bld) 1.0 % Normal . [facility] Comment on above: Performed By: #### C MP, CBC #### [address] Erythrocyte distribution width (RBC) [Ratio] 12.4 % Normal 12.0-14.8 [facility] Comment on above: Performed By: #### C MP, CBC #### [address] Hematocrit (Bld) [Volume fraction] 40.5 % Normal 38.8-50.0 [facility] Comment on above: Performed By: #### C MP, CBC #### [facility] [address] Hemoglobin (Bld) [Mass/Vol] 13.7 g/dL Normal 13.0-17.0 [facility] Comment on above: Performed By: #### C MP, CBC #### [facility] [address] Lymphocytes (Bld) [#/Vol] 0.9 10*3/uL Low 1.00-4.8 [facility] Comment on above: Performed By: #### C MP, CBC #### [facility] [address] Lymphocytes/100 WBC (Bld) 12.6 % Normal . [facility] Comment on above: Performed By: #### C MP, CBC #### [facility] [address] [place] [address] MCH (RBC) [Entitic mass] 29.8 pg Normal 27.5-35.2 [facility] Comment on above: Performed By: #### C MP, CBC #### [address] MCV (RBC) [Entitic vol] 88.1 fL Normal 83.5-101 [facility] Comment on above: Performed By: #### C MP, CBC #### [facility] [address] Mean Corpuscular HGB Conc 33.8 g/dL Normal 32.5-35.6 [facility] Comment on above: Performed By: #### C MP, CBC #### [facility] [address] Monocytes (Bld) [#/Vol] 0.8 10*3/uL Normal 0.0-0.8 [facility] Comment on above: Performed By: #### C MP, CBC #### [facility] [address] [place] [address] [place] Monocytes/100 WBC (Bld) 21.73 % High 0.00-20.00 [facility] Comment on above: Result Comment: For adults in ED, MDW > 20.0 may be associated with a higher risk of sepsis during the first 12 hrs of hospital admission Performed By: #### C MP, CBC #### [facility] [address] Monocytes/100 WBC (Bld) 10.3 % Normal . [facility] Comment on above: Performed By: #### C MP, CBC #### [facility] [address] Neutrophils (Bld) [#/Vol] 5.5 10*3/uL Normal 1.8-7.7 [facility] Comment on above: Performed By: #### C MP, CBC #### [address] Neutrophils/100 WBC (Bld) 75.6 % Normal . [facility] Comment on above: Performed By: #### C MP, CBC #### [address] NRBC% 0.2 /100{WBC} Normal 0-0.5 [facility] Comment on above: Performed By: #### C MP, CBC #### [address] Platelet mean volume (Bld) [Entitic vol] 10.8 fL High 6.6-10.1 [facility] Comment on above: Performed By: #### C MP, CBC #### [place] [address] [place] Platelets (Bld) [#/Vol] 256 10*3/uL Normal 150-450 [facility] Comment on above: Performed By: #### C MP, CBC #### [place] [address] [place] RBC (Bld) [#/Vol] 4.60 10*6/uL Normal 3.90-5.60 [facility] Comment on above: Performed By: #### C MP, CBC #### [address] WBC (Bld) [#/Vol] 7.3 10*3/uL Normal 4.1-10.5 [facility] Comment on above: Performed By: #### C MP, CBC #### [facility] [address] [place] [address] [place] Creatinine [Mass/volume] in Serum or PlasmaOrdered By: Jean Paul Gutiérrez on 07-24-2023 Creatinine [Mass/Vol] 4.59 mg/dL 0.70-1.30 [facility] Creatinine [Mass/volume] in UrineOrdered By: Gela Eller on 07-24-2023 Creatinine (U) [Mass/Vol] 141.0 mg/dL 14.0-26.0 [facility] Dipstick and Microscopicon 1 09-23-2022 Appearance (U) Clear Normal Clear [facility] Comment on above: Order Comment: Name Collection Type:: Clean-Voided Midstream Performed By: #### C MP, CBC #### [facility] [address] [place] [id number] [place] Bacteria,Urine None Seen Normal None Seen [facility] Comment on above: Order Comment: Name Collection Type:: Clean-Voided Midstream Performed By: #### C MP, CBC #### [facility] [address] [place] [id number] [place] Bilirubin,Urine Negative Normal Negative [facility] Comment on above: Order Comment: Name Collection Type:: Clean-Voided Midstream Performed By: #### C MP, CBC #### [facility] [address] [place] [address] [place] Color (U) Yellow Normal Yellow [facility] Comment on above: Order Comment: Name Collection Type:: Clean-Voided Midstream Performed By: #### C MP, CBC #### [facility] [address] [place] [address] [place] Glucose Ql (U) Normal Normal Normal [facility] Comment on above: Order Comment: Name Collection Type:: Clean-Voided Midstream Performed By: #### C MP, CBC #### [facility] [address] [place] [address] [place] Hyaline Casts,Urine None Seen Normal 0-8 [facility] Comment on above: Order Comment: Name Collection Type:: Clean-Voided Midstream Result Comment: PERF ORMED BY: [place] [address] PATHOLOGIST PLATE DRYING MACHINE TENDER RAHEL TREVINO M.D. Performed By: #### C MP, CBC #### [place] [address] [place] Ketones Ql (U) Trace High Negative [facility] Comment on above: Order Comment: Name Collection Type:: Clean-Voided Midstream Performed By: #### C MP, CBC #### [address] Leukocyte esterase Test strip Ql (U) Negative Normal Negative [facility] Comment on above: Order Comment: Name Collection Type:: Clean-Voided Midstream Performed By: #### C MP, CBC #### [place] [address] [place] Nitrite,Urine Negative Normal Negative [facility] Comment on above: Order Comment: Name Collection Type:: Clean-Voided Midstream Performed By: #### C MP, CBC #### [place] [address] [place] Occult Blood,Urine Negative Normal Negative [facility] Comment on above: Order Comment: Name Collection Type:: Clean-Voided Midstream Result Comment: PERF ORMED BY: [place] [address] PATHOLOGIST PLATE DRYING MACHINE TENDER RAHEL TREVINO M.D. Performed By: #### C MP, CBC #### [place] [address] [place] pH (U) 5.5 [pH] Normal 5.0-9.0 [facility] Comment on above: Order Comment: Name Collection Type:: Clean-Voided Midstream Performed By: #### C MP, CBC #### [place] [address] [place] Protein (U) [Mass/Vol] 30 mg/dL High Negative [facility] Comment on above: Order Comment: Name Collection Type:: Clean-Voided Midstream Performed By: #### C MP, CBC #### [facility] [address] [place] [address] RBC,Urine 5-9 High 0-4 [facility] Comment on above: Order Comment: Name Collection Type:: Clean-Voided Midstream Performed By: #### C MP, CBC #### [address] Specificy [place],Urine 1.015 Normal 1.001-1.03 0 [facility] Comment on above: Order Comment: Name Collection Type:: Clean-Voided Midstream Performed By: #### C MP, CBC #### [address] Squamous Epithelial Cell,Urine None Seen Normal 0-2 [facility] Comment on above: Order Comment: Name Collection Type:: Clean-Voided Midstream Performed By: #### C MP, CBC #### [address] Urobilinogen,Urine Normal Normal Normal [facility] Comment on above: Order Comment: Name Collection Type:: Clean-Voided Midstream Performed By: #### C MP, CBC #### [address] WBC LM.HPF (Urine sed) [#/Area] 0 /[HPF] Normal 0-4 [facility] Comment on above: Order Comment: Name Collection Type:: Clean-Voided Midstream Performed By: #### C MP, CBC #### [address] ECG 12 lead ECGon 07-24-2023 ECG 12 lead ECG [facility] [place] [address] [place] [address] Electrocardiograph Report Signed Patient: Aisha Julien MR#: [id number] 79 : 1955 Acct:[id number] Age/Sex: 68 / M ADM Date: 07/24/23 Loc: Room: [address] [place] [address] Type: ADM IN Attending Dr: Gela Eller [...] rhythm Confirmed by JEAN PAUL GUTIÉRREZ DO ([id number]) on 07/25/2023 4:32:20 PM Referred By: Electronically Signed By:JEAN PAUL GUTIÉRREZ DO Transcribed By: MUS Signed By Jean Paul Gutiérrez DO 07/25 1632 [facility] ECG 12 lead ECG [facility] [place] [address] Electrocardiograph Report Signed Patient: Aisha Julien MR#: [id number] 79 : 1955 Acct:[id number] Age/Sex: 68 / M ADM Date: 07/24/23 Loc: ER Room: Type: [facility] ER Attending Dr: Ordering Provider: Jean Paul [...] lengthened Confirmed by JEAN PAUL GUTIÉRREZ DO ([id number]) on 07/24/2023 3:51:38 PM Referred By: Electronically Signed By:JEAN PAUL GUTIÉRREZ DO Transcribed By: MUS Signed By Jean Paul Gutiérrez DO 07/24 1551 [facility] Eosinophils Auto (Bld) [#/Vo l]Ordered By: Jean Paul Gutiérrez on 07-24-2023 Eosinophils (Bld) [#/Vol] 0.1 10*3/uL 0.0-0.45 [facility] Eosinophils/100 WBC Auto (Bl d)Ordered By: Jean Paul Gutiérrez on 07-24-2023 Eosinophils/100 WBC (Bld) 1.0 % . [facility] Erythrocyte distribution wid th Auto (RBC) [Ratio]Ordered By: Jean Paul Gutiérrez on 07-24-2023 Erythrocyte distribution width (RBC) [Ratio] 12.4 % 12.0-14.8 [facility] Globulin Calc (S) [Mass/Vol] Ordered By: Jean Paul Gutiérrez on 07-24-2023 Globulin (S) [Mass/Vol] 3.5 g/dL [facility] Glucose [Mass/volume] in Ser um or PlasmaOrdered By: Jean Paul Gutiérrez on 07-24-2023 Glucose [Mass/Vol] 128 mg/dL 70-100 [facility] Comment on above: ADA recommended refe rence rangeRandom Glucose Reference Range is dependent on time and content of last meal. Glucose of more than 200 mg/dL in a nonstressed, ambulatory subject supports the diagnosis of Diabetes Mellitus. Hematocrit Auto (Bld) [Volum e fraction]Ordered By: Jean Paul Gutiérrez on 07-24-2023 Hematocrit (Bld) [Volume fraction] 40.5 % 38.8-50.0 [facility] Hemoglobin [Mass/volume] in BloodOrdered By: Jean Paul Gutiérrez on 07-24-2023 Hemoglobin (Bld) [Mass/Vol] 13.7 g/dL 13.0-17.0 [facility] Hepatic Panelon 07-24-2023 Albumin [Mass/Vol] 4.3 g/dL Normal 3.5-5.7 [facility] Comment on above: Performed By: #### C MP, CBC #### [facility] [address] [place] [address] [place] Albumin/Globulin [Mass ratio] 1.2 {ratio} Normal [facility] Comment on above: Performed By: #### C MP, CBC #### [facility] [address] [place] [address] [place] ALP [Catalytic activity/Vol] 72 U/L Normal 34-104 [facility] Comment on above: Performed By: #### C MP, CBC #### [facility] [address] ALT [Catalytic activity/Vol] 12 U/L Normal 7-52 [facility] Comment on above: Performed By: #### C MP, CBC #### [facility] [address] AST [Catalytic activity/Vol] 24 U/L Normal 13-39 [facility] Comment on above: Performed By: #### C MP, CBC #### [facility] [address] Bilirubin [Mass/Vol] 0.8 mg/dL Normal 0.3-1.0 [facility] Comment on above: Performed By: #### C MP, CBC #### [address] Bilirubin,Indirect 0.6 mg/dL Normal [facility] Comment on above: Performed By: #### C MP, CBC #### [address] Bilirubin.indirect [Mass/Vol] 0.20 mg/dL High 0.03-0.18 [facility] Comment on above: Performed By: #### C MP, CBC #### [address] Globulin (S) [Mass/Vol] 3.5 g/dL Normal [facility] Comment on above: Performed By: #### C MP, CBC #### [address] Protein [Mass/Vol] 7.8 g/dL Normal 6.4-8.9 [facility] Comment on above: Performed By: #### C MP, CBC #### [address] INR in Platelet poor plasma by Coagulation assayOrdered By: Jean Paul Gutiérrez on 07-24-2023 INR Coag (PPP) [Relative time] 1.0 {INR} [facility] Comment on above: INR Therapeutic Rang [...] Ketones Auto test strip (U) [Mass/Vol]Ordered By: eJan Paul Gutiérrez on 07-24-2023 Ketones (U) [Mass/Vol] Trace Negative [facility] - UrinalysisOrder ed By: Jean Paul Gutiérrez on 07-24-2023 Hyaline casts LM Ql (Urine sed) None seen [LPF] 0-8 [facility] Leukocytes [#/volume] correc johnnie for nucleated erythrocytes in Blood by Automated counOrdered By: Jean Paul Gutiérrez on 07-24-2023 WBC corrected for nucl RBC Auto (Bld) [#/Vol] 7.3 10*3/uL 4.1-10.5 [facility] Lipaseon 07-24-2023 Lipase [Catalytic activity/Vol] 90.0 U/L High 11.0-82.0 [facility] Comment on above: Result Comment: PERF ORMED BY: [place] [address] PATHOLOGIST PLATE DRYING MACHINE TENDER RAHEL TREVINO M.D. Performed By: #### C MP, CBC #### [address] Lipase [Enzymatic activity/v olume] in Serum or PlasmaOrdered By: Jean Paul Gutiérrez on 07-24-2023 Lipase [Catalytic activity/Vol] 90.0 U/L 11.0-82.0 [facility] Lymphocytes Auto (Bld) [#/Vo l]Ordered By: Jean Paul Gutiérrez on 07-24-2023 Lymphocytes (Bld) [#/Vol] 0.9 10*3/uL 1.00-4.8 [facility] Lymphocytes/100 WBC Auto (Bl d)Ordered By: Jean Paul Gutiérrez on 07-24-2023 Lymphocytes/100 WBC (Bld) 12.6 % . [facility] MCH Auto (RBC) [Entitic mass ]Ordered By: Jean Paul Gutiérrez on 07-24-2023 MCH (RBC) [Entitic mass] 29.8 pg 27.5-35.2 [facility] MCHC Auto (RBC) [Mass/Vol]Or dered By: Jean Paul Gutiérrez on 07-24-2023 MCHC (RBC) [Mass/Vol] 33.8 g/dL 32.5-35.6 [facility] MCV Auto (RBC) [Entitic vol] Ordered By: Jean Paul Gutiérrez on 07-24-2023 MCV (RBC) [Entitic vol] 88.1 fL 83.5-101 [facility] Magnesiumon 07-24-2023 Magnesium [Mass/Vol] 2.1 mg/dL Normal 1.9-2.7 [facility] Comment on above: Performed By: #### C MP, CBC #### [address] Magnesium [Mass/volume] in S sadi or PlasmaOrdered By: Gela Eller on 07-24-2023 Magnesium [Mass/Vol] 2.1 mg/dL 1.9-2.7 [facility] Monocyte distribution width [Entitic volume] in Blood by AutomatedOrdered By: Jean Paul Gutiérrez on 07-24-2023 Monocyte distribution width Auto (Bld) [Entitic vol] 21.73 % 0.00-20.00 [facility] Comment on above: For adults in ED, MD W > 20.0 may be associated with a higher risk of sepsis during the first 12 hrs of hospital admission Monocytes Auto (Bld) [#/Vol] Ordered By: Jean Paul Gutiérrez on 07-24-2023 Monocytes (Bld) [#/Vol] 0.8 10*3/uL 0.0-0.8 [facility] Monocytes/100 WBC Auto (Bld) Ordered By: Jean Paul Gutiérrez on 07-24-2023 Monocytes/100 WBC (Bld) 10.3 % . [facility] Neutrophils Auto (Bld) [#/Vo l]Ordered By: Jean Paul Gutiérrez on 07-24-2023 Neutrophils (Bld) [#/Vol] 5.5 10*3/uL 1.8-7.7 [facility] Neutrophils/100 WBC Auto (Bl d)Ordered By: Jean Paul Gutiérrez on 07-24-2023 Neutrophils/100 WBC (Bld) 75.6 % . [facility] Nitrite Test strip Ql (U)Ord ered By: Jean Paul Gutiérrez on 07-24-2023 Nitrite Ql (U) Negative Negative [facility] No Panel InformationOrdered By: Jean Paul Gutiérrez on 07-24-2023 Estimated GFR (CKD-EPI) 13.168 mL/Min [facility] Creatinine Clearance (Chem 15.40 [facility] Nucleated erythrocytes [Pres ence] in Blood by Automated countOrdered By: Jean Paul Gutiérrez on 07-24-2023 Nucleated RBC Auto Ql (Bld) 0.2 /100{WBC} 0-0.5 [facility] Platelet mean volume Auto (B ld) [Entitic vol]Ordered By: Jean Paul Gutiérrez on 07-24-2023 Platelet mean volume (Bld) [Entitic vol] 10.8 fL 6.6-10.1 [facility] Platelets Auto (Bld) [#/Vol] Ordered By: Jean Paul Gutiérrez on 07-24-2023 Platelets (Bld) [#/Vol] 256 10*3/uL 150-450 [facility] Potassium [Moles/volume] in Serum or PlasmaOrdered By: Jean Paul Gutiérrez on 07-24-2023 Potassium [Moles/Vol] 2.9 mmol/L 3.5-5.1 [facility] Comment on above: Critical Result Call ed to and read back by: ANDREAS CARABALLO at: 07/24/2023 13:30:58 by:MLG Protein Auto test strip (U) [Mass/Vol]Ordered By: Jean Paul Gutiérrez on 07-24-2023 Protein (U) [Mass/Vol] 30 mg/dL Negative [facility] Protein [Mass/volume] in Ser um or PlasmaOrdered By: Jean Paul Gutiérrez on 07-24-2023 Protein [Mass/Vol] 7.8 g/dL 6.4-8.9 [facility] Prothrombin Time INRon 07-24 INR Coag (PPP) [Relative time] 1.0 {INR} Normal [facility] Comment on above: Result Comment: INR [...] heart valves: 3 - 4.5 PERFORMED BY: [place] [address] PATHOLOGIST PLATE DRYING MACHINE TENDER RAHEL TREVINO M.D. Performed By: #### C MP, CBC #### [facility] [address] [id number] [facility] [[email or web address]] PT Coag (PPP) [Time] 12.2 s Normal 9.0-12.9 [facility] Comment on above: Result Comment: A he matocrit value greater than 55% may lead to inaccurate results in coagulation testing. Patients having hematocrit values >55% require a special collection tube for coagulation studies. Please contact the laboratory at [phone] for redraw instructions. Performed By: #### C MP, CBC #### [facility] [address] [place] [id number] [facility] [[email or web address]] Prothrombin time (PT)Ordered By: Jean Paul Gutiérrez on 07-24-2023 PT Coag (PPP) [Time] 12.2 s 9.0-12.9 [facility] Comment on above: A hematocrit value g reater than 55% may lead to inaccurate results in coagulation testing. Patients having hematocrit values >55% require a special collection tube for coagulation studies. Please contact the laboratory at [phone] for redraw instructions. RBC Auto (Bld) [#/Vol]Ordere d By: Jean Paul Gutiérrez on 07-24-2023 RBC (Bld) [#/Vol] 4.60 10*6/uL 3.90-5.60 [facility] Serum or plasma albumin/glob ulin mass ratioOrdered By: Jean Paul Gutiérrez on 07-24-2023 Albumin/Globulin [Mass ratio] 1.2 {ratio} [facility] Serum or plasma anion gap de terminationOrdered By: Jean Paul Gutiérrez on 07-24-2023 Anion gap [Moles/Vol] 18.0 mmol/L 6.0-15.0 [facility] Serum or plasma non-glucuron idated bilirubin measurement (mass/volume)Ordered By: Jean Paul Gutiérrez on 07-24-2023 Bilirubin.indirect [Mass/Vol] 0.6 mg/dL [facility] Sodium [Moles/volume] in Ser um or PlasmaOrdered By: Jean Paul Gutiérrez on 07-24-2023 Sodium [Moles/Vol] 134 mmol/L 136-145 [facility] Sodium [Moles/volume] in Uri neOrdered By: Gela Eller on 07-24-2023 Sodium (U) [Moles/Vol] 41 mmol/L [facility] Comment on above: No reference range e stablished Specific gravity Auto test s trip (U) [Rel density]Ordered By: Jean Paul Gutiérrez on 07-24-2023 Specific gravity (U) [Rel density] 1.015 1.001-1.03 0 [facility] Squamous epithelial cells de tection in urine sediment by light microscopyOrdered By: Jean Paul Gutiérrez on 07-24-2023 Epithelial cells.squamous LM Ql (Urine sed) None seen [HPF] 0-2 [facility] Troponin I High Sensitivityo n 07-24-2023 Troponin I High Sensitivity 11.8 pg/mL Normal 0.0-20.0 [facility] Comment on above: Result Comment: PERF ORMED BY: [place] [address] PATHOLOGIST PLATE DRYING MACHINE TENDER RAHEL TREVINO M.D. Performed By: #### C MP, CBC #### [address] Troponin I.cardiac [Mass/vol ume] in Serum or Plasma by Detection limit <= 0.01 ng/Ordered By: Jean Paul Gutiérrez on 07-24-2023 Troponin I.cardiac DL <= 0.01 ng/mL [Mass/Vol] 11.8 pg/mL 0.0-20.0 [facility] Urea nitrogen [Mass/volume] in Serum or PlasmaOrdered By: Jean Paul Gutiérrez on 07-24-2023 Urea nitrogen [Mass/Vol] 56 mg/dL 7-25 [facility] Urine bacteria detection by automated methodOrdered By: Jean Palu Gutiérrez on 07-24-2023 Bacteria Auto Ql (U) None seen None Seen [facility] Urine clarity by refractomet ry automatedOrdered By: Jean Paul Gutiérrez on 07-24-2023 Clarity Refractometry automated (U) Clear Clear [facility] Urine glucose measurement by automated test strip (mass/volume)Ordered By: Jean Paul Gutiérrez on 07-24-2023 Glucose Auto test strip (U) [Mass/Vol] Normal mg/dL Normal [facility] Urine hemoglobin detection b y automated test stripOrdered By: Jean Paul Gutiérrez on 07-24-2023 Hemoglobin Auto test strip Ql (U) Negative Negative [facility] Urine leukocyte esterase det ection by automated test stripOrdered By: Jean Paul Gutiérrez on 07-24-2023 Leukocyte esterase Auto test strip Ql (U) Negative Negative [facility] Urobilinogen Auto test strip (U) [Mass/Vol]Ordered By: Jean Paul Gutiérrez on 07-24-2023 Urobilinogen (U) [Mass/Vol] Normal mg/dL Normal [facility] WBC Auto (Bld) [#/Vol]Ordere d By: Jean Paul Gutiérrez on 07-24-2023 WBC (Bld) [#/Vol] 7.3 10*3/uL 4.1-10.5 [facility] pH Auto test strip (U)Ordere d By: Jean Paul Gutiérrez on 07-24-2023 pH (U) 5.5 [pH] 5.0-9.0 [facility] Tobacco Screening.on 023 Tobacco use status CPHS b) No [facility] DO Work Phone: Activated partial thrombopla stin time (aPTT) in platelet poor plasma by coagulation aOrdered By: Joselito Madsen on 01-15-2023 aPTT Coag (PPP) [Time] 29.1 s 25.1-36.5 [facility] Basophils Auto (Bld) [#/Vol] Ordered By: Joselito Madsen on 01-15-2023 Basophils (Bld) [#/Vol] 0.0 10*3/uL 0.0-0.2 [facility] Basophils/100 WBC Auto (Bld) Ordered By: Joselito Madsen on 01-15-2023 Basophils/100 WBC (Bld) 0.7 % . [facility] Blood Urea Nitrogenon 2022 Urea nitrogen [Mass/Vol] 19 mg/dL Normal 7-25 [facility] Comment on above: Performed By: #### C REAT, PP, LYTES, LIPID, CBC, BUN #### [facility] [address] Carbon dioxide, total [Moles /volume] in Serum or PlasmaOrdered By: Joselito Madsen on 01-15-2023 CO2 [Moles/Vol] 24.1 mmol/L 21.0-31.0 [facility] Chloride [Moles/volume] in S sadi or PlasmaOrdered By: Joselito Madsen on 01-15-2023 Chloride [Moles/Vol] 108 mmol/L 98-107 [facility] Cholesterol [Mass/volume] in Serum or PlasmaOrdered By: Joselito Madsen on 01-15-2023 Cholesterol [Mass/Vol] 123 mg/dL 140-200 [facility] Comment on above: Chol less than 200 m g/dl low riskChol 201-239 mg/dl borderline riskChol 240 mg/dl and greater high risk Cholesterol in LDL Calc [Mas s/Vol]Ordered By: Joselito Madsen on 01-15-2023 Cholesterol in LDL [Mass/Vol] 49 mg/dL 0-100 [facility] Comment on above: LDL ATP III CLASSIFI CATIONLDL less than 100 mg/dL OptimalLDL 100-129 mg/dL Near or above optimalLDL 130-159 mg/dL Borderline highLDL 160-189 mg/dL HighLDL greater than 189 mg/dL Very high Cholesterol in VLDL Calc [Ma ss/Vol]Ordered By: Joselito Madsen on 01-15-2023 Cholesterol in VLDL [Mass/Vol] 10 mg/dL [facility] Coagulation Profileon 2022 aPTT Coag (Bld) [Time] 29.1 s Normal 25.1-36.5 [facility] Comment on above: Result Comment: PERF ORMED BY: [facility] [address] [place] [address] PATHOLOGIST PLATE DRYING MACHINE TENDER RAHEL TREVINO M.D. Performed By: #### C REAT, PP, LYTES, LIPID, CBC, BUN #### [address] INR Coag (PPP) [Relative time] 1.0 {INR} Normal [facility] Comment on above: Result Comment: INR [...] REAT, PP, LYTES, LIPID, CBC, BUN #### [facility] [address] PT Coag (PPP) [Time] 11.0 s Normal 9.0-12.9 [facility] Comment on above: Performed By: #### C REAT, PP, LYTES, LIPID, CBC, BUN #### [address] Complete Blood Count Auto Di ffon 01-15-2023 Basophils (Bld) [#/Vol] 0.0 10*3/uL Normal 0.0-0.2 [facility] Comment on above: Result Comment: PERF ORMED BY: [place] [address] PATHOLOGIST PLATE DRYING MACHINE TENDER RAHEL TREVINO M.D. Performed By: #### C REAT, PP, LYTES, LIPID, CBC, BUN #### [address] Basophils/100 WBC (Bld) 0.7 % Normal . [facility] Comment on above: Performed By: #### C REAT, PP, LYTES, LIPID, CBC, BUN #### [address] Eosinophils (Bld) [#/Vol] 0.5 10*3/uL High 0.0-0.45 [facility] Comment on above: Performed By: #### C REAT, PP, LYTES, LIPID, CBC, BUN #### [address] Eosinophils/100 WBC (Bld) 9.6 % Normal . [facility] Comment on above: Performed By: #### C REAT, PP, LYTES, LIPID, CBC, BUN #### [address] Erythrocyte distribution width (RBC) [Ratio] 13.3 % Normal 12.0-14.8 [facility] Comment on above: Performed By: #### C REAT, PP, LYTES, LIPID, CBC, BUN #### [address] Hematocrit (Bld) [Volume fraction] 38.8 % Normal 38.8-50.0 [facility] Comment on above: Performed By: #### C REAT, PP, LYTES, LIPID, CBC, BUN #### [address] Hemoglobin (Bld) [Mass/Vol] 12.7 g/dL Low 13.0-17.0 [facility] Comment on above: Performed By: #### C REAT, PP, LYTES, LIPID, CBC, BUN #### [address] Lymphocytes (Bld) [#/Vol] 1.0 10*3/uL Normal 1.00-4.8 [facility] Comment on above: Performed By: #### C REAT, PP, LYTES, LIPID, CBC, BUN #### [address] Lymphocytes/100 WBC (Bld) 19.2 % Normal . [facility] Comment on above: Performed By: #### C REAT, PP, LYTES, LIPID, CBC, BUN #### [address] MCH (RBC) [Entitic mass] 29.2 pg Normal 27.5-35.2 [facility] Comment on above: Performed By: #### C REAT, PP, LYTES, LIPID, CBC, BUN #### [address] MCV (RBC) [Entitic vol] 89.1 fL Normal 83.5-101 [facility] Comment on above: Performed By: #### C REAT, PP, LYTES, LIPID, CBC, BUN #### [address] Mean Corpuscular HGB Conc 32.7 g/dL Normal 32.5-35.6 [facility] Comment on above: Performed By: #### C REAT, PP, LYTES, LIPID, CBC, BUN #### [address] Monocytes (Bld) [#/Vol] 0.9 10*3/uL High 0.0-0.8 [facility] Comment on above: Performed By: #### C REAT, PP, LYTES, LIPID, CBC, BUN #### [address] Monocytes/100 WBC (Bld) 17.1 % Normal . [facility] Comment on above: Performed By: #### C REAT, PP, LYTES, LIPID, CBC, BUN #### [address] Neutrophils (Bld) [#/Vol] 2.7 10*3/uL Normal 1.8-7.7 [facility] Comment on above: Performed By: #### C REAT, PP, LYTES, LIPID, CBC, BUN #### [address] Neutrophils/100 WBC (Bld) 53.4 % Normal . [facility] Comment on above: Performed By: #### C REAT, PP, LYTES, LIPID, CBC, BUN #### [address] NRBC% 0.1 /100{WBC} Normal 0-0.5 [facility] Comment on above: Performed By: #### C REAT, PP, LYTES, LIPID, CBC, BUN #### [address] Platelet mean volume (Bld) [Entitic vol] 9.0 fL Normal 6.6-10.1 [facility] Comment on above: Performed By: #### C REAT, PP, LYTES, LIPID, CBC, BUN #### [address] Platelets (Bld) [#/Vol] 170 10*3/uL Normal 150-450 [facility] Comment on above: Performed By: #### C REAT, PP, LYTES, LIPID, CBC, BUN #### [address] RBC (Bld) [#/Vol] 4.36 10*6/uL Normal 3.90-5.60 [facility] Comment on above: Performed By: #### C REAT, PP, LYTES, LIPID, CBC, BUN #### [address] WBC (Bld) [#/Vol] 5.0 10*3/uL Normal 4.1-10.5 [facility] Comment on above: Performed By: #### C REAT, PP, LYTES, LIPID, CBC, BUN #### [address] Creatinineon 01-15-2023 Creatinine [Mass/Vol] 1.22 mg/dL Normal 0.70-1.30 [facility] Comment on above: Performed By: #### C REAT, PP, LYTES, LIPID, CBC, BUN #### [address] GFR/1.73 sq M.predicted MDRD (S/P/Bld) [Vol rate/Area] mL/min/{1.73_m2} Normal [facility] Comment on above: Performed By: #### C REAT, PP, LYTES, LIPID, CBC, BUN #### [facility] [address] Creatinine [Mass/volume] in Serum or PlasmaOrdered By: Joselito Madsen on 01-15-2023 Creatinine [Mass/Vol] 1.22 mg/dL 0.70-1.30 [facility] ECG 12 lead ECGon 01-15-2023 ECG 12 lead ECG [facility] [place] [address] [place] [address] Electrocardiograph Report Signed Patient: Aisha Julien MR#: [id number] : 1955 Acct:[id number] Age/Sex: 67 / M ADM Date: 01/15/23 Loc: Room: Type: [facility] Attending Dr: Joselito Madsen DO Ordering Provider: Joselito Madsen DO Date of Service: 01/15/23 ECG/ECG 12 lead ECG: [facility] Copies to: Test Reason : Blood [...] (247) on 01/15/2023 7:44:09 PM Referred By: LIZ Electronically Signed By:PATY MACKEY MD Transcribed By: [facility] Signed By Paty Mackey MD 1943 Normal [facility] Electrolyteson 01-15-2023 Anion gap [Moles/Vol] 10.5 mmol/L Normal 6.0-15.0 [facility] Comment on above: Performed By: #### C REAT, PP, LYTES, LIPID, CBC, BUN #### [facility] [address] [id number] [facility] [[email or web address]] Chloride [Moles/Vol] 108 mmol/L High 98-107 [facility] Comment on above: Performed By: #### C REAT, PP, LYTES, LIPID, CBC, BUN #### [facility] [address] CO2 [Moles/Vol] 24.1 mmol/L Normal 21.0-31.0 [facility] Comment on above: Performed By: #### C REAT, PP, LYTES, LIPID, CBC, BUN #### [facility] [address] Potassium [Moles/Vol] 4.6 mmol/L Normal 3.5-5.1 [facility] Comment on above: Performed By: #### C REAT, PP, LYTES, LIPID, CBC, BUN #### [facility] [address] Sodium [Moles/Vol] 138 mmol/L Normal 136-145 [facility] Comment on above: Performed By: #### C REAT, PP, LYTES, LIPID, CBC, BUN #### [facility] [address] Eosinophils Auto (Bld) [#/Vo l]Ordered By: Joselito Madsen on 01-15-2023 Eosinophils (Bld) [#/Vol] 0.5 10*3/uL 0.0-0.45 [facility] Eosinophils/100 WBC Auto (Bl d)Ordered By: Joselito Madsen on 01-15-2023 Eosinophils/100 WBC (Bld) 9.6 % . [facility] Erythrocyte distribution wid th Auto (RBC) [Ratio]Ordered By: Joselito Madsen on 01-15-2023 Erythrocyte distribution width (RBC) [Ratio] 13.3 % 12.0-14.8 [facility] Hematocrit Auto (Bld) [Volum e fraction]Ordered By: Joselito Madsen on 01-15-2023 Hematocrit (Bld) [Volume fraction] 38.8 % 38.8-50.0 [facility] Hemoglobin [Mass/volume] in BloodOrdered By: Joselito Madsen on 01-15-2023 Hemoglobin (Bld) [Mass/Vol] 12.7 g/dL 13.0-17.0 [facility] Laboratory - Chemistry and C hemistry - challengeon 01-15-2023 Cholesterol [Mass/Vol] 123\S\123 below low threshold 140-200 -[facility] DO Work Phone: Comment on above: Chol less than 200 m g/dl low risk Chol 201-239 mg/dl borderline risk Chol 240 mg/dl and greater high risk Cholesterol in LDL [Mass/Vol] 49\S\49 Normal 0-100 [facility] DO Work Phone: Comment on above: LDL ATP III CLASSIFI CATION LDL less than 100 mg/dL Optimal LDL 100-129 mg/dL Near or above optimal LDL 130-159 mg/dL Borderline high LDL 160-189 mg/dL High LDL greater than 189 mg/dL Very high Laboratory - CoagulationOrde red By: Joselito Madsen on 01-15-2023 PT Coag (PPP) [Time] 11.0 s 9.0-12.9 [facility] Leukocytes [#/volume] correc johnnie for nucleated erythrocytes in Blood by Automated counOrdered By: Joselito Mdasen on 01-15-2023 WBC corrected for nucl RBC Auto (Bld) [#/Vol] 5.0 10*3/uL 4.1-10.5 [facility] Lipid Panelon 01-15-2023 Cholesterol [Mass/Vol] 123 mg/dL Low 140-200 [facility] Comment on above: Result Comment: Chol less than 200 mg/dl low risk Chol 201-239 mg/dl borderline risk Chol 240 mg/dl and greater high risk Performed By: #### C MP, CBC #### [facility] [address] [id number] [place] Cholesterol in HDL [Mass/Vol] 64 mg/dL Normal 29-71 [facility] Comment on above: Result Comment: HDL CHOL ATP-III CLASSIFICATION Cardiovascular Risk HDL > or equal to 60 mg/dL LOW HDL < 40 mg/dL HIGH Performed By: #### C MP, CBC #### [facility] [address] [place] [address] [facility] [[email or web address]] Cholesterol.total/Cho lesterol in HDL [Mass ratio] 1.9 {ratio} Normal <5.0 [facility] Comment on above: Result Comment: PERF ORMED BY: [place] [address] PATHOLOGIST PLATE DRYING MACHINE TENDER RAHEL TREVINO M.D. Performed By: #### C MP, CBC #### [facility] [address] [place] [address] LDL Cholesterol,Calculate d 49 mg/dL Normal 0-100 [facility] Comment on above: Result Comment: LDL ATP III CLASSIFICATION LDL less than 100 mg/dL Optimal LDL 100-129 mg/dL Near or above optimal LDL 130-159 mg/dL Borderline high LDL 160-189 mg/dL High LDL greater than 189 mg/dL Very high Performed By: #### C MP, CBC #### [address] Triglyceride w/Reflex 51 mg/dL Normal 0-149 [facility] Comment on above: Result Comment: TRIG ATP III CLASSIFICATION TRIG less than 150 mg/dL Normal TRIG 150-199 mg/dL Borderline high TRIG 200-500 mg/dL High TRIG greater than 500 mg/dL Very high Standard traceable to the Center for Disease Conrtrol and Prevention (CDC) test method. Performed By: #### C MP, CBC #### [facility] [address] [place] [address] VLDL CHOLESTEROL 10 mg/dL Normal [facility] Comment on above: Performed By: #### C MP, CBC #### [address] Lymphocytes Auto (Bld) [#/Vo l]Ordered By: Joselito Madsen on 01-15-2023 Lymphocytes (Bld) [#/Vol] 1.0 10*3/uL 1.00-4.8 [facility] Lymphocytes/100 WBC Auto (Bl d)Ordered By: Joselito Madsen on 01-15-2023 Lymphocytes/100 WBC (Bld) 19.2 % . [facility] MCH Auto (RBC) [Entitic mass ]Ordered By: Joselito Madsen on 01-15-2023 MCH (RBC) [Entitic mass] 29.2 pg 27.5-35.2 [facility] MCHC Auto (RBC) [Mass/Vol]Or dered By: Joselito Madsen on 01-15-2023 MCHC (RBC) [Mass/Vol] 32.7 g/dL 32.5-35.6 [facility] MCV Auto (RBC) [Entitic vol] Ordered By: Joselito Madsen on 01-15-2023 MCV (RBC) [Entitic vol] 89.1 fL 83.5-101 [facility] Monocytes Auto (Bld) [#/Vol] Ordered By: Joselito Madsen on 01-15-2023 Monocytes (Bld) [#/Vol] 0.9 10*3/uL 0.0-0.8 [facility] Monocytes/100 WBC Auto (Bld) Ordered By: Joselito Madsen on 01-15-2023 Monocytes/100 WBC (Bld) 17.1 % . [facility] Neutrophils Auto (Bld) [#/Vo l]Ordered By: Joselito Madsen on 01-15-2023 Neutrophils (Bld) [#/Vol] 2.7 10*3/uL 1.8-7.7 [facility] Neutrophils/100 WBC Auto (Bl d)Ordered By: Joselito Madsen on 01-15-2023 Neutrophils/100 WBC (Bld) 53.4 % . [facility] No Panel InformationOrdered By: Joselito Madsen on 01-15-2023 Estimated GFR (CKD-EPI) > 60.0 mL/Min [facility] Creatinine Clearance (Chem N/A [facility] No Panel Informationon 01-15 0.0\S\0.0 Normal 0.0-0.2 [facility] 250 DO Work Phone: Comment on above: PERFORMED BY:[facility] [place] [id number] MEDICAL DIRECTORRAHEL TREVINO M.D. 0.5\S\0.5 above high threshold 0.0-0.45 [facility] y 250 DO Work Phone: 0.9\S\0.9 above high threshold 0.0-0.8 [facility] 250 DO Work Phone: 1.0\S\1.0 Normal [facility] DO Work Phone: [phone] Comment on above: INR Therapeutic Rang [...] valves: 3 - 4.5 2.7\S\2.7 Normal 1.8-7.7 [facility] DO Work Phone: [phone] 0.1\S\0.1 Normal 0-0.5 [facility] DO Work Phone: [phone] 0.7\S\0.7 Normal . [facility] DO Work Phone: [phone] 9.6\S\9.6 Normal . [facility] DO Work Phone: [phone] 17.1\S\17.1 Normal . [facility] DO Work Phone: [phone] 19.2\S\19.2 Normal . [facility] 250 DO Work Phone: [phone] 53.4\S\53.4 Normal . [facility] DO Work Phone: [phone] 9.0\S\9.0 Normal 6.6-10.1 [facility] DO Work Phone: [phone] 170\S\170 Normal 150-450 [facility] DO Work Phone: [phone] 13.3\S\13.3 Normal 12.0-14.8 [facility] 250 DO Work Phone: [phone] 32.7\S\32.7 Normal 32.5-35.6 -[facility] 250 DO Work Phone: [phone] 29.2\S\29.2 Normal 27.5-35.2 [facility] 250 DO Work Phone: [phone] 89.1\S\89.1 Normal 83.5-101 [facility] 250 DO Work Phone: [phone] 38.8\S\38.8 Normal 38.8-50.0 [facility] DO Work Phone: [phone] 12.7\S\12.7 below low threshold 13.0-17.0 [facility] 250 DO Work Phone: [phone] 4.36\S\4.36 Normal 3.90-5.60 [facility] 250 DO Work Phone: [phone] 5.0\S\5.0 Normal 4.1-10.5 [facility] 250 DO Work Phone: [phone] 29.1\S\29.1 Normal 25.1-36.5 [facility] 250 DO Work Phone: [phone] Comment on above: PERFORMED BY:[place] [address] [place], [place] [phone] MEDICAL DIRECTORRAHEL TREVINO M.D. 11.0\S\11.0 Normal 9.0-12.9 [facility] 250 DO Work Phone: [phone] 10.5\S\10.5 Normal 6.0-15.0 [facility] 250 DO Work Phone: [phone] 24.1\S\24.1 Normal 21.0-31.0 [facility] 250 DO Work Phone: [phone] 108\S\108 above high threshold 98-107 [facility] 250 DO Work Phone: [phone] 4.6\S\4.6 Normal 3.5-5.1 [facility] 250 DO Work Phone: [phone] 138\S\138 Normal 136-145 [facility] 250 DO Work Phone: [phone] 19\S\19 Normal 7-25 [facility] 250 DO Work Phone: [phone] > 60.0 Normal [facility] 250 DO Work Phone: [phone] 1.22\S\1.22 Normal 0.70-1.30 [facility] 250 DO Work Phone: [phone] 1.9\S\1.9 Normal <5.0 [facility] 250 DO Work Phone: Comment on above: PERFORMED BY:[place] [address] [place], [place] [phone] MEDICAL DIRECTORRAHEL TREVINO M.D. 10\S\10 Normal [facility] 250 DO Work Phone: [phone] 51\S\51 Normal 0-149 [facility] Work Phone: Comment on above: TRIG ATP III CLASSIF ICATION TRIG less than 150 mg/dL Normal TRIG 150-199 mg/dL Borderline high TRIG 200-500 mg/dL High TRIG greater than 500 mg/dL Very high Standard traceable to the Center for Disease Conrtrol and Prevention (CDC) test method. 64\S\64 Normal 29-71 [facility] Work Phone: Comment on above: HDL CHOL ATP-III CLA SSIFICATION Cardiovascular Risk HDL > or equal to 60 mg/dL LOW HDL < 40 mg/dL HIGH Nucleated erythrocytes [Pres ence] in Blood by Automated countOrdered By: Joselito Madsen on 01-15-2023 Nucleated RBC Auto Ql (Bld) 0.1 /100{WBC} 0-0.5 [facility] Platelet mean volume Auto (B ld) [Entitic vol]Ordered By: Joselito Madsen on 01-15-2023 Platelet mean volume (Bld) [Entitic vol] 9.0 fL 6.6-10.1 [facility] Platelet poor plasma interna tional normalized ratio (INR) by coagulation assay (relatOrdered By: Joselito Madsen on 01-15-2023 INR Coag (PPP) [Relative time] 1.0 {INR} [facility] Comment on above: INR Therapeutic Rang [...] 01-15-2023 Platelets (Bld) [#/Vol] 170 10*3/uL 150-450 [facility] Potassium [Moles/volume] in Serum or PlasmaOrdered By: Joselito Madsen on 01-15-2023 Potassium [Moles/Vol] 4.6 mmol/L 3.5-5.1 [facility] RBC Auto (Bld) [#/Vol]Ordere d By: Joselito Madsen on 01-15-2023 RBC (Bld) [#/Vol] 4.36 10*6/uL 3.90-5.60 [facility] Serum or plasma anion gap de terminationOrdered By: Joselito Madsen on 01-15-2023 Anion gap [Moles/Vol] 10.5 mmol/L 6.0-15.0 [facility] Serum or plasma high density lipoprotein (HDL) cholesterol measurementOrdered By: Joselito Madsen on 01-15-2023 Cholesterol in HDL [Mass/Vol] 64 mg/dL 29-71 [facility] Comment on above: HDL CHOL ATP-III CLA SSIFICATION Cardiovascular RiskHDL > or equal to 60 mg/dL LOWHDL < 40 mg/dL HIGH Serum or plasma total choles terol/high density lipoprotein (HDL) cholesterol mass ratOrdered By: Joselito Madsen on 01-15-2023 Cholesterol.total/Cho lesterol in HDL [Mass ratio] 1.9 {ratio} <5.0 [facility] Sodium [Moles/volume] in Ser um or PlasmaOrdered By: Joselito Madsen on 01-15-2023 Sodium [Moles/Vol] 138 mmol/L 136-145 [facility] Triglyceride [Mass/volume] i n Serum or PlasmaOrdered By: Joselito Madsen on 01-15-2023 Triglyceride [Mass/Vol] 51 mg/dL 0-149 [facility] Comment on above: TRIG ATP III CLASSIF ICATIONTRIG less than 150 mg/dL NormalTRIG 150-199 mg/dL Borderline highTRIG 200-500 mg/dL High TRIG greater than 500 mg/dL Very highStandard traceable to the Center for Disease Conrtrol and Prevention (CDC) test method. Urea nitrogen [Mass/volume] in Serum or PlasmaOrdered By: Joselito Madsen on 01-15-2023 Urea nitrogen [Mass/Vol] 19 mg/dL 7-25 [facility] WBC Auto (Bld) [#/Vol]Ordere d By: Joselito Madsen on 01-15-2023 WBC (Bld) [#/Vol] 5.0 10*3/uL 4.1-10.5 [facility] Tobacco Screening.on 023 Adult depression screening assessment No [facility] DO Work Phone: Fall risk assessment a) No falls within the last year [facility] 250 DO Work Phone: Tobacco use status CPHS b) No [facility] DO Work Phone: EVENT MONITORon 12-13-2021 [place] [address] EVENT MONITOR PATIENT NAME: AISHA JULIEN : 1955 MED REC NO: [id number] ROOM: ACCOUNT NO: [id number] ADMIT DATE: 11/07/2021 PROVIDER: Inocencio Gutierrez NAME [...] for symptom control. INOCENCIO GUTIERREZ GV/V_TTHEN_I Doc#: [id number] CC: Rene Cannon [facility] CARDIAC STRESS TESTon 2021 [place] [address] CARDIAC STRESS TEST PATIENT NAME: AISHA JULIEN : 1955 MED REC NO: [id number] ROOM: ACCOUNT NO: [id number] ADMIT DATE: 11/07/2021 PROVIDER: Inocencio Gutierrez DATE [...] remained at 96%. INOCENCIO GUTIERREZ GV/V_TTRMM_I Doc#: [id number] CC: Rene Cannon [facility] CARDIAC STRESS TESTon 2021 [place] [address] CARDIAC STRESS TEST PATIENT NAME: AISHA JULIEN : 1955 MED REC NO: [id number] ROOM: ACCOUNT NO: [id number] ADMIT DATE: 11/07/2021 PROVIDER: Karina Fajardo MD [...] Dr. Gutierrez on 11/07/2021. KARINA FAJARDO MD TRISTIAN Doc#: Unknown CC: Rene Gutierrez [facility] NM MYOCARDIAL SPECT REST EXE RCISE OR RXon 11-07-2021 NM MYOCARDIAL SPECT REST EXERCISE OR RX Radiology exam is complete. No Radiologist dictation. Please follow up with ordering provider. Final result Normal [facility] No Panel Informationon 11-07 Radiology exam is complete. No Radiologist dictation. Please follow up with ordering provider. [facility] CONSOLIDATED STRESS TEST REPORTon 022 Karina Fajardo MD - 11/07/2021 1:54 PM EDT [facility] [address] [place] [address] CARDIAC STRESS TEST PATIENT NAME: AISHA JULIEN : 1955 MED REC NO: [id number] ROOM: ACCOUNT NO: [id number] ADMIT DATE: 11/07/2021 PROVIDER: Karina Fajardo MD [...] MD LAURYN/CIARAN_RALF Doc#: Unknown CC: Rene Gutierrez [facility] [employer] Work Phone: [employer] Phone: VL DUP CAROTID BILATERALon 0 11-07-2021 VL DUP CAROTID BILATERAL Radiology exam is complete. No Radiologist dictation. Please follow up with ordering provider. Final result Normal [facility] Bryan Pichardo Jr., MD - 11/08/2021 [facility] Vascular Carotid Procedure Patient Name MARY BETH LEONARD Date of Study 11/07/2021 L Date of 1955 Gender Male Age 66 year(s) Race Room Number Corporate ID [id number] # Patient Acct [id number] # MR # [id number] [employer] Database Manager Jocelyn Mcghee, Interpreting Estephania Pichardo Physician Referring [...] left side. - Additional Measurements:ICAPSV/CCAPSV 0.63.ICAEDV/CCAEDV 1.31. [employer] Phone: Radiology Study observation (narrative) [employer] Phone: VL DUP CAROTID BILATERALOrde red By: Bryan Pichardo on 11-07-2021 [employer] Phone: XR CHEST 2 Von 10-31-2021 XR [...] DEBORAH PERALTA Date: 2021-10-31 13:46 Normal [facility] Complete Blood Count with Au to Diffon 10-16-2021 Basophils (Bld) [#/Vol] 0.04 10*3/uL Normal 0.00-0.[address] [facility] Specialist Comment on above: Performed By: #### C MP, TSH reflex FT4, CBCAD, MG, VITD, LIPD #### [facility] [address], [place] [id number] Basophils/100 WBC (Bld) 0.7 % Normal [facility] Specialist Comment on above: Performed By: #### C MP, TSH reflex FT4, CBCAD, MG, VITD, LIPD #### [facility] [address], [place] [id number] Eosinophils (Bld) [#/Vol] 0.12 10*3/uL Normal 0.02-0.[address] [facility] Specialist Comment on above: Performed By: #### C MP, TSH reflex FT4, CBCAD, MG, VITD, LIPD #### [facility] [address], [place] [id number] Eosinophils/100 WBC (Bld) 2.2 % Normal [facility] Specialist Comment on above: Performed By: #### C MP, TSH reflex FT4, CBCAD, MG, VITD, LIPD #### [facility] [address], [place] [id number] Erythrocyte distribution width (RBC) [Ratio] 14.5 % Normal 11.0-15.[address] [facility] Specialist Comment on above: Performed By: #### C MP, TSH reflex FT4, CBCAD, MG, VITD, LIPD #### [facility] [address], [place] [id number] Hematocrit (Bld) [Volume fraction] 38.2 % Low 38.5-50.[address] [facility] Specialist Comment on above: Performed By: #### C MP, TSH reflex FT4, CBCAD, MG, VITD, LIPD #### [facility] [address], [place] [id number] Hemoglobin (Bld) [Mass/Vol] 12.3 g/dL Low 13.0-17.[address] [facility] Specialist Comment on above: Performed By: #### C MP, TSH reflex FT4, CBCAD, MG, VITD, LIPD #### [facility] [address], [place] [id number] Lymphocytes (Bld) [#/Vol] 1.2 10*3/uL Normal 0.9-3.[address] [facility] Specialist Comment on above: Performed By: #### C MP, TSH reflex FT4, CBCAD, MG, VITD, LIPD #### [facility] [address], [place] [id number] Lymphocytes/100 WBC (Bld) 22.1 % Normal [facility] Specialist Comment on above: Performed By: #### C MP, TSH reflex FT4, CBCAD, MG, VITD, LIPD #### [facility] [address], [place] [id number] MCH (RBC) [Entitic mass] 29.4 pg Normal 27.0-33.[address] [facility] Specialist Comment on above: Performed By: #### C MP, TSH reflex FT4, CBCAD, MG, VITD, LIPD #### [facility] [address], [place] [id number] MCHC (RBC) [Mass/Vol] 32.2 g/dL Normal 32.0-36.0 [facility] Comment on above: Performed By: #### C MP, TSH reflex FT4, CBCAD, MG, VITD, LIPD #### [facility] [address], [place] [id number] MCV (RBC) [Entitic vol] 91 fL Normal 80-[address] [facility] Specialist Comment on above: Performed By: #### C MP, TSH reflex FT4, CBCAD, MG, VITD, LIPD #### [facility] [address], [place] [id number] Monocytes (Bld) [#/Vol] 0.9 10*3/uL Normal 0.2-0.[address] [facility] Specialist Comment on above: Performed By: #### C MP, TSH reflex FT4, CBCAD, MG, VITD, LIPD #### [facility] [address], [place] [id number] Monocytes/100 WBC (Bld) 16.4 % Normal [facility] Comment on above: Performed By: #### C MP, TSH reflex FT4, CBCAD, MG, VITD, LIPD #### [facility] [address], [place] [id number] Neutrophils (Bld) [#/Vol] 3.1 10*3/uL Normal 1.5-7.[address] [facility] Specialist Comment on above: Performed By: #### C MP, TSH reflex FT4, CBCAD, MG, VITD, LIPD #### [facility] [address], [place] [id number] Neutrophils/100 WBC (Bld) 57.5 % Normal [facility] Specialist Comment on above: Performed By: #### C MP, TSH reflex FT4, CBCAD, MG, VITD, LIPD #### [facility] [address], [place] [id number] Platelet mean volume (Bld) [Entitic vol] 10.30 fL Normal 7.50-12.50 [facility] Comment on above: Performed By: #### C MP, TSH reflex FT4, CBCAD, MG, VITD, LIPD #### [facility] [address], [place] [id number] Platelets (Bld) [#/Vol] 266 10*3/uL Normal 140-[address] [facility] Specialist Comment on above: Performed By: #### C MP, TSH reflex FT4, CBCAD, MG, VITD, LIPD #### [facility] [address], [place] [id number] RBC (Bld) [#/Vol] 4.19 10*6/uL Low 4.20-5.80 [facility] Comment on above: Performed By: #### C MP, TSH reflex FT4, CBCAD, MG, VITD, LIPD #### [facility] [address], [place] [id number] RDW-SD 48.1 fL Normal 37.0-50.[address] [facility] Specialist Comment on above: Performed By: #### C MP, TSH reflex FT4, CBCAD, MG, VITD, LIPD #### [facility] [address], [place] [id number] WBC (Bld) [#/Vol] 5.4 10*3/uL Normal 3.8-11.0 [facility] [place] [facility] Comment on above: Performed By: #### C MP, TSH reflex FT4, CBCAD, MG, VITD, LIPD #### [facility] [address], [place] [id number] Comprehensive Metabolic Pane jefry 10-16-2021 Albumin [Mass/Vol] 4.2 g/dL Normal 3.6-5.1 [facility] [place] [facility] Comment on above: Performed By: #### C MP, TSH reflex FT4, CBCAD, MG, VITD, LIPD #### [facility] [address], [place] [id number] Albumin/Globulin [Mass ratio] 1.6 {ratio} Normal 1.0-2.[address] [facility] Specialist Comment on above: Performed By: #### C MP, TSH reflex FT4, CBCAD, MG, VITD, LIPD #### [facility] [address], [place] [id number] ALP [Catalytic activity/Vol] 103 U/L Normal 40-[address] [facility] Specialist Comment on above: Performed By: #### C MP, TSH reflex FT4, CBCAD, MG, VITD, LIPD #### [facility] [address], [place] [id number] ALT [Catalytic activity/Vol] 11 U/L Normal 9-[address] [facility] Specialist Comment on above: Result Comment: 07/25 Female reference range changed. Performed By: #### C MP, TSH reflex FT4, CBCAD, MG, VITD, LIPD #### [facility] [address], [place] [id number] Anion gap [Moles/Vol] 19 mmol/L Normal 12-20 [facility] Comment on above: Result Comment: Effe ctive 08/30/2019 reference range changed. Performed By: #### C MP, TSH reflex FT4, CBCAD, MG, VITD, LIPD #### [facility] [address], [place] [id number] AST [Catalytic activity/Vol] 17 U/L Normal 10-40 [facility] Comment on above: Performed By: #### C MP, TSH reflex FT4, CBCAD, MG, VITD, LIPD #### [facility] [address], [place] [id number] Bilirubin [Mass/Vol] 0.37 mg/dL Normal 0.30-1.20 [facility] Comment on above: Performed By: #### C MP, TSH reflex FT4, CBCAD, MG, VITD, LIPD #### [facility] [address], [place] [id number] BUN/CREA 15 Ratio Normal 6-22 [facility] Comment on above: Performed By: #### C MP, TSH reflex FT4, CBCAD, MG, VITD, LIPD #### [facility] [address], [place] [id number] Calcium [Mass/Vol] 9.5 mg/dL Normal 8.6-10.2 [facility] Comment on above: Performed By: #### C MP, TSH reflex FT4, CBCAD, MG, VITD, LIPD #### [facility] [address], [place] [id number] Chloride [Moles/Vol] 104 mmol/L Normal 98-107 [facility] Comment on above: Performed By: #### C MP, TSH reflex FT4, CBCAD, MG, VITD, LIPD #### [facility] [address], [place] [id number] CO2 [Moles/Vol] 21 mmol/L Normal 20-31 [facility] Comment on above: Performed By: #### C MP, TSH reflex FT4, CBCAD, MG, VITD, LIPD #### [facility] [address], [place] [id number] Creatinine [Mass/Vol] 0.9 mg/dL Normal 0.7-1.4 [facility] Comment on above: Performed By: #### C MP, TSH reflex FT4, CBCAD, MG, VITD, LIPD #### [facility] [address], [place] [id number] eGFRAA 100 mL/min/1.73m2 Normal >60 [facility] Specialist Comment on above: Performed By: #### C MP, TSH reflex FT4, CBCAD, MG, VITD, LIPD #### [facility] [address], [place] [id number] eGFRNAA 82 mL/min/1.73m2 Normal >[address] [facility] Specialist Comment on above: Performed By: #### C MP, TSH reflex FT4, CBCAD, MG, VITD, LIPD #### [facility] [address], [place] [id number] Globulin (S) [Mass/Vol] 2.6 g/dL Normal 1.9-3.[address] [facility] Specialist Comment on above: Performed By: #### C MP, TSH reflex FT4, CBCAD, MG, VITD, LIPD #### [facility] [address], [place] [id number] Glucose [Mass/Vol] 92 mg/dL Normal 65-99 [facility] Professional Comment on above: Result Comment: For FASTING Glucose --- ADA reference ranges: Normal 65-99 mg/dl Prediabetes 100-125 Diabetes >/= 126 Performed By: #### C MP, TSH reflex FT4, CBCAD, MG, VITD, LIPD #### [facility] [address], [place] [id number] Potassium [Moles/Vol] 4.8 mmol/L Normal 3.5-5.5 [facility] Comment on above: Performed By: #### C MP, TSH reflex FT4, CBCAD, MG, VITD, LIPD #### [facility] [address], [place] [id number] Protein [Mass/Vol] 6.8 g/dL Normal 6.1-8.1 [facility] Occup[facility] Professional Comment on above: Performed By: #### C MP, TSH reflex FT4, CBCAD, MG, VITD, LIPD #### [facility] [address], [place] [id number] Sodium [Moles/Vol] 139 mmol/L Normal 135-146 [facility] Comment on above: Performed By: #### C MP, TSH reflex FT4, CBCAD, MG, VITD, LIPD #### [facility] [address], [place] [id number] Urea nitrogen [Mass/Vol] 14 mg/dL Normal 7-[address] [facility] Specialist Comment on above: Performed By: #### C MP, TSH reflex FT4, CBCAD, MG, VITD, LIPD #### [facility] [address], [place] [id number] Lipid Panelon 10-16-2021 Cholesterol [Mass/Vol] 158 mg/dL Normal 125-200 [facility] Comment on above: Result Comment: Low risk < 200mg/dL Borderline risk 201-239 mg/dl High risk > or equal to 240 Performed By: #### C MP, TSH reflex FT4, CBCAD, MG, VITD, LIPD #### [facility] [address], [place] [id number] Cholesterol in HDL [Mass/Vol] 65 mg/dL Normal >[address] [facility] Specialist Comment on above: Result Comment: High Cardiovascular Risk HDL <40 mg/dL Low Cardiovascular Risk HDL > or equal to 60 mg/dl Performed By: #### C MP, TSH reflex FT4, CBCAD, MG, VITD, LIPD #### [facility] [address], [place] [id number] Cholesterol in LDL [Mass/Vol] 81 mg/dL Normal [facility] Comment on above: Result Comment: LDL ATP III CLASSIFICATION LDL less than 100 mg/dl Optimal LDL 100-129 mg/dl Near or above optimal LDL 130-159 Borderline high LDL 160-189 High LDL greater than 189 mg/dl Very High Performed By: #### C MP, TSH reflex FT4, CBCAD, MG, VITD, LIPD #### [facility] [address], [place] [id number] Cholesterol in VLDL [Mass/Vol] 12 mg/dL Normal [facility] Comment on above: Performed By: #### C MP, TSH reflex FT4, CBCAD, MG, VITD, LIPD #### [facility] [address], [place] [id number] Cholesterol.total/Cho lesterol in HDL [Mass ratio] 2 {ratio} Normal [facility] Specialist Comment on above: Performed By: #### C MP, TSH reflex FT4, CBCAD, MG, VITD, LIPD #### [facility] [address], [place] [id number] Triglyceride [Mass/Vol] 60 mg/dL Normal 30-[address] [facility] Specialist Comment on above: Result Comment: TRIG ATPIII CLASSIFICATIONS TRIG less than 150 mg/dl Normal TRIG 150-199 mg/dl Borderline High TRIG 200-500 mg/dl High TRIG greather than 500 mg/dl Very High Performed By: #### C MP, TSH reflex FT4, CBCAD, MG, VITD, LIPD #### [facility] [address], [place] [id number] Magnesiumon 10-16-2021 Magnesium [Mass/Vol] 1.9 mg/dL Normal 1.5-2.3 [facility] Comment on above: Performed By: #### C MP, TSH reflex FT4, CBCAD, MG, VITD, LIPD #### [facility] [address], [place] [id number] TSH w/ Reflex to Free T4on 0 10-16-2021 TSH 1.370 uIU/mL Normal 0.400-4.50 0 [facility] Comment on above: Performed By: #### C MP, TSH reflex FT4, CBCAD, MG, VITD, LIPD #### [facility] [address], [place] [id number] Vitamin D 25-OHon 10-16-2021 VIT D 25 OH 28 ng/ml Low >[address] [facility] Specialist Comment on above: Result Comment: Karissa min D Status Deficiency <20 ng/mL Insufficiency 20-29 ng/mL Optimal 30-100 ng/mL Possible Toxicity >=150 ng/mL Performed By: #### C MP, TSH reflex FT4, CBCAD, MG, VITD, LIPD #### [facility] [address], [place] [id number] XR CHEST 2 Von 01-18-2022 XR CHEST 2 V EXAMINATION: XR CHES [...] by: DEBORAH PERALTA Date: 2021-09-11 11:13 Normal [facility] PROF CHEM 8 (BAS METB)on Anion gap [Moles/Vol] 19.0 mmol/L Normal [facility] Comment on above: Performed By: #### B MP #### [facility] [address] [address] [address] Vadim Koehler Calcium [Mass/Vol] 9.0 mg/dL Normal 8.4-10.2 [facility] Comment on above: Performed By: #### B MP #### [facility] [address] [address] [address] Vadim Koehler Chloride [Moles/Vol] 97 mmol/L Critically low 98-107 [facility] Comment on above: Performed By: #### B MP #### [facility] [address] [address] [address] Vadim Koehler CO2 [Moles/Vol] 20.0 mmol/L Critically low 22.0-30.0 [facility] Comment on above: Performed By: #### B MP #### [facility] [address] [address] [address] Vadim Koehler Creatinine [Mass/Vol] 3.03 mg/dL Critically high 0.66-1.25 [facility] Comment on above: Performed By: #### B MP #### [facility] [address] [address] [address] Vadim Koehler EGFR-AF CITIZEN OF [place] 25 mL/min/1.73m2 Critically low >=60 [facility] Comment on above: Performed By: #### B MP #### [facility] [address] [address] [address] Vadim Koehler EGFR-NON AF CITIZEN OF [place] 21 mL/min/1.73m2 Critically low >=60 [facility] Comment on above: Performed By: #### B MP #### [facility] [address] [address] [address] Vadim Koehler Glucose [Mass/Vol] 120 mg/dL Critically high 74-106 T [facility] Comment on above: Performed By: #### B MP #### [facility] [address] [address] [address] Vadim Koehler Potassium [Moles/Vol] 4.0 mmol/L Normal 3.4-5.0 [facility] Comment on above: Performed By: #### B MP #### [facility] [address] [address] [address] Vadim Koehler Sodium [Moles/Vol] 132 mmol/L Critically low 137-145 [facility] Comment on above: Performed By: #### B MP #### [facility] [address] [address] [address] Vadim Koehler Urea nitrogen [Mass/Vol] 47.0 mg/dL Critically high 9.0-20.0 [facility] Comment on above: Performed By: #### B MP #### [facility] [address] [address] [address] Vadim Koehler Urea nitrogen/Creatinine [Mass ratio] 15.5 mg/mg Normal [facility] Comment on above: Performed By: #### B MP #### [facility] [address] [address] [address] Vadim Koehler Vital Signs Date Time Vital Sign Value Performing Clinician Facility 10-02-2023 14:14-0500 Body height 176.5 cm Cleveland Alberts MD Work Phone: [facility] 10-02-2023 14:14-0500 Body temperature 97.7 [degF] Cleveland Alberts MD Work Phone: [facility] 10-02-2023 14:14-0500 Body weight 68.04 kg Cleveland Alberts MD Work Phone: [facility] 10-02-2023 14:14-0500 Diastolic blood pressure 72 mm[Hg] Cleveland Alberts MD Work Phone: [facility] 10-02-2023 14:14-0500 Heart rate 76 /min Cleveland Alberts MD Work Phone: [facility] 10-02-2023 14:14-0500 Respiratory rate 16 /min Cleveland Alberts MD Work Phone: [facility] 10-02-2023 14:14-0500 Systolic blood pressure 127 mm[Hg] Cleveland Alberts MD Work Phone: [facility] 08-07-2023 13:50-0500 Body weight 63.5 kg Cleveland Alberts MD Work Phone: [facility] 08-07-2023 13:50-0500 Diastolic blood pressure 63 mm[Hg] Cleveland Alberts MD Work Phone: [facility] 08-07-2023 13:50-0500 Heart rate 139 /min Cleveland Alberts MD Work Phone: [facility] 08-07-2023 13:50-0500 Systolic blood pressure 94 mm[Hg] Cleveland Alberts MD Work Phone: [facility] 07-26-2023 15:20-0500 Body temperature 97.7 [degF] MD Rene Cannon Work Phone: [facility] 07-26-2023 15:20-0500 Diastolic blood pressure 69 mm[Hg] MD Rene Cannon Work Phone: [facility] 07-26-2023 15:20-0500 Heart rate 58 /min MD Rene Cannon Work Phone: [facility] 07-26-2023 15:20-0500 Respiratory rate 18 /min MD Rene Cannon Work Phone: [facility] 07-26-2023 15:20-0500 SaO2% (BldA) [Mass fraction] 97 % MD Rene Cannon Work Phone: [facility] 07-26-2023 15:20-0500 Systolic blood pressure 128 mm[Hg] MD Rene Cannon Work Phone: [facility] 07-26-2023 03:59-0500 Body weight 74.9 kg MD Rene Cannon Work Phone: [facility] 07-25-2023 14:39-0500 Body height 175.26 cm MD Rene Cannon Work Phone: [facility] 07-24-2023 18:07-0500 Diastolic blood pressure 56 mm[Hg] MD Rene Cannon Work Phone: [facility] 07-24-2023 18:07-0500 Heart rate 58 /min MD Rene Cannon Work Phone: [facility] 07-24-2023 18:07-0500 Respiratory rate 18 /min MD Rene Cannon Work Phone: [facility] 07-24-2023 18:07-0500 SaO2% (BldA) [Mass fraction] 100 % MD Rene Cannon Work Phone: [facility] 07-24-2023 18:07-0500 Systolic blood pressure 100 mm[Hg] MD Rene Cannon Work Phone: [facility] 07-24-2023 12:15-0500 Body height 175.26 cm MD Rene Cannon Work Phone: [facility] 07-24-2023 12:15-0500 Body temperature 97.6 [degF] MD Rene Cannon Work Phone: [facility] 07-24-2023 12:15-0500 Body weight 72.5 kg MD Rene Cannon Work Phone: [facility] 02-22-2023 11:30-0400 Body height 176.53 cm Chantal Castellanos Other [employer] Other 02-22-2023 11:30-0400 Body mass index (BMI) [Ratio] 25.79 kg/m2 Chantal Castellanos Other [employer] Other 02-22-2023 11:30-0400 Body temperature 98.9 [degF] Chantal Castellanos Other [employer] Other 02-22-2023 11:30-0400 Body weight 80.38 kg Chantal Castellanos Other [employer] Other 02-22-2023 11:30-0400 Respiratory rate 18 /min Chantal Castellanos Other [employer] Other 02-22-2023 11:30-0400 SaO2% (BldA) [Mass fraction] 96 % Chantal Castellanos Other [employer] Other 02-06-2023 11:36-0400 Body height 176.53 cm Rene Cannon Work Phone: [facility] [address] DO Work Phone: 02-06-2023 11:36-0400 Body mass index (BMI) [Ratio] 25.62 kg/m2 Rene Cannon Work Phone: [facility] 250 DO Work Phone: 02-06-2023 11:36-0400 Body surface area Derived from formula 1.97 m2 Rene Cannon Work Phone: [facility] 250 DO Work Phone: 02-06-2023 11:36-0400 Body weight 79.83 kg Rene Cannon Work Phone: [facility] 250 DO Work Phone: 02-06-2023 11:36-0400 Diastolic blood pressure 78 mm[Hg] Rene Cannon Work Phone: [facility] 250 DO Work Phone: 02-06-2023 11:36-0400 Heart rate 66 /min Rene Cannon Work Phone: [facility] DO Work Phone: 02-06-2023 11:36-0400 Systolic blood pressure 136 mm[Hg] Rene Cannon Work Phone: [facility] 250 DO Work Phone: 01-17-2023 13:05-0400 Diastolic blood pressure 72 mm[Hg] MD Rene Cannon Work Phone: [facility] 01-17-2023 13:05-0400 Heart rate 60 /min MD Rene Cannon Work Phone: [facility] 01-17-2023 13:05-0400 Respiratory rate 16 /min MD Rene Cannon Work Phone: [facility] 01-17-2023 13:05-0400 SaO2% (BldA) [Mass fraction] 97 % MD Rene Cannon Work Phone: [facility] 01-17-2023 13:05-0400 Systolic blood pressure 123 mm[Hg] MD Reen Cannon Work Phone: [facility] 01-17-2023 07:26-0400 Body height 177.8 cm MD Rene Cannon Work Phone: [facility] 01-17-2023 07:26-0400 Body temperature 98.1 [degF] MD Rene Cannon Work Phone: [facility] 01-17-2023 07:26-0400 Body weight 82 kg MD Rene Cannon Work Phone: [facility] 01-09-2023 09:10-0400 Diastolic blood pressure 92 mm[Hg] Rene Cannon Work Phone: [facility] DO Work Phone: 01-09-2023 09:10-0400 Systolic blood pressure 160 mm[Hg] Rene Cannon Work Phone: [facility] DO Work Phone: 01-09-2023 09:09-0400 Body height 176.53 cm Rene Cannon Work Phone: [facility] DO Work Phone: 01-09-2023 09:09-0400 Body mass index (BMI) [Ratio] 26.49 kg/m2 Rene Cannon Work Phone: [facility] DO Work Phone: 01-09-2023 09:09-0400 Body surface area Derived from formula 1.99 m2 Rene Cannon Work Phone: [facility] 250 DO Work Phone: 01-09-2023 09:09-0400 Body weight 82.56 kg Rene Cannon Work Phone: [facility] 250 DO Work Phone: 01-09-2023 09:09-0400 Diastolic blood pressure 90 mm[Hg] Rene Cannon Work Phone: [facility] DO Work Phone: 01-09-2023 09:09-0400 Heart rate 70 /min Rene Cannon Work Phone: [facility] [employer] 250 DO Work Phone: 01-09-2023 09:09-0400 Systolic blood pressure 152 mm[Hg] Rene Cannon Work Phone: [facility] [employer] 250 DO Work Phone: 11-21-2021 14:30-0400 Body height 176.53 cm Deborah Magallanes Other [employer] Other 11-21-2021 14:30-0400 Body mass index (BMI) [Ratio] 27.36 kg/m2 Deborah Magallanes Other [facility] Other 11-21-2021 14:30-0400 Body weight 85.28 kg Deborah Elpidio Other [facility] Other 11-21-2021 14:30-0400 Diastolic blood pressure 79 mm[Hg] Deborah Magallanes Other [facility] Other 11-21-2021 14:30-0400 Systolic blood pressure 136 mm[Hg] Deborah Magallanes Other [employer] Other Encounters Encounter Date Encounter Type Care Provider Facility Start: 10-02-2023 End: 10-02-2023 ambulatory CLEVELAND ALBERTS Facility:[facility] Start: 10-02-2023 End: 10-02-2023 Patient encounter procedure Cleveland Alberts MD Work Phone: General Surgery Comment on above: Gastric outlet obstr uction (Primary Dx); Primary malignant neuroendocrine tumor of ileum (HCC); Encounter for attention to gastrostomy (HCC); Severe protein-calorie malnutrition (HCC) Start: 10-01-2023 End: 10-01-2023 ambulatory RENE CANNON Facility:[facility] Start: 08-28-2023 End: 09-05-2023 Evaluation and management of inpatient CLEVELAND ALBERTS Facility:[facility] Start: 08-28-2023 End: 08-28-2023 ambulatory [facility] Facility:[facility] Start: 08-15-2023 End: 08-15-2023 ambulatory Imad Asaad Other [facility] [employer] Other Start: 08-15-2023 Telephone encounter Imad Asaad [facility] [facility] Start: 08-13-2023 Telephone encounter Cleveland chang MD Work Phone: General Surgery Comment on above: FMLA Paperwork Start: 08-08-2023 Preprocedural examination done Cleveland Alberts MD Work Phone: [facility] Work Phone: Start: 08-07-2023 End: 08-17-2023 Evaluation and management of inpatient BOLIVAR Misa DEAL Facility:[facility] Start: 08-07-2023 End: 08-07-2023 [facility] Start: 08-07-2023 End: 08-07-2023 Patient encounter [...] Evaluation and management of inpatient Rene Cannon Facility:[facility] Start: 07-24-2023 End: 07-26-2023 Evaluation and management of inpatient MD Rene Cannon Work Phone: [facility] [place] [facility] Work Phone: Start: 07-24-2023 End: 07-24-2023 ambulatory RENE CANNON Not Available Start: 07-10-2023 End: 07-10-2023 ambulatory RENE CANNON Not Available Start: 02-22-2023 End: 02-22-2023 ambulatory Chantal Castellanos Other [facility] Other Start: 02-22-2023 Office outpatient vi sit 15 minutes Chantal Castellanos [facility] Start: 02-06-2023 Office outpatient vi sit 15 minutes Rene Cannon Work Phone: [facility] 250 DO Work Phone: Start: 01-17-2023 ambulatory Arnel Madsen Facilit [id number] Start: 01-17-2023 End: 01-17-2023 ambulatory Joselito Madsen Facility:[facility] Start: 01-17-2023 End: 01-17-2023 Admission to same day surgery center MD Rene Cannon Work Phone: [facility]-Field Support Engineer Work Phone: Start: 01-17-2023 End: 01-17-2023 ambulatory MD Rene Cannon Work Phone: [facility] Work Phone: Start: 01-15-2023 End: 01-15-2023 ambulatory Joselito Madsen Facility:[facility] Start: 01-15-2023 End: 01-15-2023 Patient encounter procedure MD Rene Cannon Work Phone: [facility] [facility] Work Phone: Start: 01-09-2023 ambulatory Arnel Madsen Facilit [id number] Start: 12-19-2022 ambulatory Arnel Madsen Facilit y:[facility] Start: 07-04-2022 ambulatory INOCENCIO ERICKSON [facility] Start: 01-11-2022 End: 01-11-2022 ambulatory Deborah Magallanes Other [facility] Other Start: 01-11-2022 Telephone encounter Deborah Magallanes [facility] G[facility] Start: 12-19-2021 End: 12-19-2021 ambulatory Deborah Magallanes Other [facility] Other Start: 12-19-2021 Telephone encounter Deborah Magallanes [facility] Gastroenterology Start: 11-21-2021 End: 11-21-2021 ambulatory Deborah Magallanes Other [facility] Other Start: 11-21-2021 Office outpatient ne w 30 minutes Deborah Magallanes [facility] Gastroenterology Start: 11-07-2021 End: 11-10-2021 [facility] Start: 11-07-2021 End: 11-09-2021 Subsequent hospital visit by physician [facility] Ekg [facility] EKG Comment on above: Chest pain, [...] Comment: Specimen Type: BLOOD SPEC IMENOrdering Facility: [facility] Address: [address] [place] [address] Performed By: #### T GERMAIN ####GEOVANNA BLO[facility] BANKCLIA [id number] [address] [place] Start: 07-25-2023 Esophagogastroduodenoscopy MD [...] Rene Cannon Work Phone: Start: 03-17-2017 Colonoscopy [facility] Ekg Arthroscopy of knee Rene Cannon Work Phone: Cardiac catheterization Olga Cannon Work Phone: Tonsillectomy Rene luis Work Phone: Plan of Treatment Date Care Activity Detail Author Start: 02-16-2033 Urine microalbumin profile DTa P,Tdap,Td Vaccine (2 - Td or Tdap) [facility] Start: 03-17-2027 Screening for malign ant neoplasm of colon [facility] Start: 10-16-2026 Lipid panel Lipid screen [facility] Start: 09-05-2026 Diabetes Screening Diabetes Screenin [facility] Start: 08-14-2026 Diabetes Screening Diabetes Screenin [facility] Start: 08-07-2026 Diabetes Screening Diabetes Screenin g [facility] Start: 10-02-2024 BP Controlled (<130/80) BP Con trolled (<130/80) [facility] Start: 08-07-2024 BP Controlled (<130/80) BP Con trolled (<130/80) [facility] Start: 08-25-2023 Advance Directive Discussion A dvance Directive Discussion [facility] Start: 08-25-2023 Depression Assessment Depression Ass essment [facility] Start: 07-26-2023 [facility] Start: 07-25-2023 Comprehensive metabo lic 2000 panel - Serum or Plasma [facility] Start: 07-25-2023 [facility] Start: 07-24-2023 Blood chemistry [facility] Start: 07-24-2023 Referral to Corporate Job Titles [facility] Start: 07-24-2023 End: 07-24-2023 [facility] Start: 07-24-2023 Referral to speech a nd language therapy service [facility] Start: 07-24-2023 Referral to customer service professional [facility] Start: 07-24-2023 Hospital admission [facility] Start: 07-24-2023 Referral to housing management representative [facility] Start: 04-25-2023 Influenza vaccination Influenz a Vaccine (#1) [facility] Start: 01-17-2023 End: 01-17-2023 [facility] Start: 10-16-2022 Creatinine measurement Creatinine mo [facility] Start: 10-16-2022 Potassium monitoring Potassium monit [facility] Start: 08-25-2022 Advance Directive Discussion A dvance Directive Discussion [facility] Start: 08-25-2022 Depression Assessment Depression Ass essment [facility] Start: 12-04-2021 End: 12-04-2021 Patient encounter procedure 12/04/2021 Office Visit Cardiology Douglas Gutierrez MD [address] [place] [address] [facility] Case Finisher Start: 04-25-2021 Influenza vaccination Flu vaccine (# 1) [facility] Start: 2020 Pneumococcal 65+ yea rs Vaccine (1 of 1 - PPSV23) Pneumococcal 65+ years Vaccine (1 of 1 - PPSV23) [facility] Start: 2020 Pneumococcal Vaccine : 65+ (1 - PCV) Pneumococcal Vaccine: 65+ (1 - PCV) [facility] Start: 2020 Pneumococcal Vaccine : 65+ (1 of 1 - PCV) Pneumococcal Vaccine: 65+ (1 of 1 - PCV) [facility] Start: 2015 RSV Vaccine (1 - 1-d ose 60+ series) RSV Vaccine (1 - 1-dose 60+ series) [facility] Start: 2010 Prostate specific an tigen measurement Prostate Cancer Screening Discussion [facility] Start: 2005 Shingles Vaccine (1 of 2) Arriaga gles Vaccine (1 of 2) [facility] Start: 2005 Shingrix Vaccine (1 of 2) Arriaga grix Vaccine (1 of 2) [facility] Start: 2000 Diabetes Screening Diabetes Screenin g [facility] Start: 2000 Screening for malign ant neoplasm of colon [facility] Start: 1990 Lipid panel Lipid Screening [facility] Start: 1974 DTaP/Tdap/Td vaccine (1 - Tdap) DTaP/Tdap/Td vaccine (1 - Tdap) [facility] Start: 1974 Urine microalbumin profile DTa P,Tdap,Td Vaccine (1 - Tdap) [facility] Start: 1973 Annual PCP Team First Responder kit Disease Visit Annual PCP Team Chronic Disease Visit [facility] Start: 1973 Hepatitis C screening Hepatitis C [facility] Start: 1967 Depression Screen Depression Screen [facility] Start: 1960 COVID-19 Vaccine (1) COVID-19 Vaccin e (1) [facility] Start: 01-15-1956 Covid-19 Vaccine (#1) Covid-19 Vacci ne (#1) [facility] Start: 1955 Hepatitis C screening Hepatitis C [facility] Anion gap measurement [facility] Blood chemistry [facility] End: 11-07-2021 Cardiac event monitor Cardiac event monitor Cardiac Services Routine Chest pain, unspecified type Syncope, unspecified syncope type 1 Occurrences starting 11/07/2021 until 11/07/2021 [facility] Work Phone: Comment on above: 1 Occurrences starti ng 11/07/2021 until 11/07/2021 Dup-scan xtr veins c omplete bilateral study VASCULAR REPORT Imaging Ordered: 11/08/2021 [facility] Comment on above: Ordered: 11/08/2021 Patient referral [facility] Work Phone: End: 11-07-2021 Stress test, myoview Stress test, myoview Cardiac Services Routine Chest pain, unspecified type Syncope, unspecified syncope type 1 Occurrences starting 11/07/2021 until 11/07/2021 [facility] Work Phone: Comment on above: 1 Occurrences starti ng 11/07/2021 until 11/07/2021 Beverly Merari Immunizations Immunization Date Immunization Notes Care Provider Kaylie mckoy 02-16-2023 tetanus toxoid, redu clyde diphtheria toxoid, and acellular pertussis vaccine, adsorbed Cleveland Alberts MD Work Phone: [facility] Payers Date Payer Category Payer Self-pay [id number] 2020 Medicare [id number] 2017 Unknown 1959 Unknown [id number] 1955 Unknown [id number] 2.16.84 [id number] 1955 Unknown [id number] 2.16.84 0.1.313985.3.579.2.593 1955 Unknown [id number] 2.16.84 0.1.527574.3.579.2.593 1955 Unknown [id number] 2.16.84 0.1.589968.3.579.2.593 1955 Unknown [id number] 2.16.8 40.1.246067.3.579.2.174 1955 Unknown [id number] 2.16.8 40.1.708292.3.579.2.174 1955 Unknown [id number] 2.16.8 40.1.000093.3.579.2.174 1955 Unknown [id number] 2.16.8 40.1.301316.3.579.2.174 1955 Unknown [id number] 2.16.8 40.1.983866.3.579.2.174 1955 Unknown [id number] 2.16.8 40.1.896877.3.579.2.174 1955 Unknown [id number] 2.16. 840.1.301486.3.579.2.356 1955 Unknown [id number] 2.16. 840.1.955136.3.579.2.356 1955 Unknown [id number] 2.16. 840.1.335296.3.579.2.356 1955 Unknown [id number] 2.16.840 .1.194016.3.579.2.1259 1955 Unknown [id number] 2.16.840 .1.874809.3.579.2.1259 1955 Unknown [id number] 2.16.840 .1.624641.3.579.2.1259 Unknown [id number] 2.16.8 40.1.772592.3.579.2.531 Unknown [id number] 2.16.8 40.1.260055.3.579.2.531 Unknown [id number] 2.16.8 40.1.835564.3.579.2.531 Social History Date Type Detail Facility Start: 10-23-2021 End: 08-07-2023 Tobacco smoking status FLIS Never smoked tobacco [facility] Start: 10-23-2021 End: 08-07-2023 Tobacco use and exposure Smokeless tobacco non-user [employer] Phone: Start: 10-24-2021 End: 10-02-2023 Alcohol intake Current drinker of alcohol (finding) [employer] Phone: Start: 10-24-2021 End: 08-07-2023 Alcohol intake [employer] Phone: Comment on above: couple beers at [facility] t; Start: 1955 Sex Assigned At Not on file [employer] Phone: Start: 08-07-2023 End: 10-02-2023 Sex Assigned At [facility] Other Start: 1955 Sex Assigned At Male [facility] Tobacco smoking status NHIS Tobacco smoking consumption unknown [facility] Start: 08-07-2023 Alcohol intake Ex-drinker (finding) [facility] National Score (1-100), lower number is lower risk 63 [facility] Start: 10-02-2023 Alcohol Comment a few beers per day [facility] Medical Equipment Procedure Code Equipment Code Equipment Origin al Text Equipment Identifier Dates [id number] Percutane Endoscopic Gastrostomy Set [id number] Start: 08-13-2023 Jejunal Feeding Set 12ff X 66cm [id number] Start: 08-13-2023 Goals Date Patient Goal Desired Activity /State Functional Status Date Assessment Result Facility 07-26-2023 Functional status Patient at Baseline [facility] Work Phone: 07-24-2023 Functional status Patient at Baseline [facility] Work Phone: Mental Status Date Assessment Result Facility 07-26-2023 Cognitive function Cognitive Sta tus Patient at Baseline [facility] Work Phone: 07-24-2023 Cognitive function Cognitive Sta tus Patient at Baseline [facility] Work Phone: Clinical Notes 11-07-2021 to 10-03-2023 Cleveland Alberts MD - 10/03/2023 4:29 PM EST Note Date & Type Note Facility 10-03-2023 Note HNO ID: [id number] Author: CLEVELAND ALBERTS MD Service: ? 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 He was admitted last month after PEG-J tube was placed but he could not tolerate TF likely to bowel congestion and formation of new moderate volume ascites. He was started on TPN with significant improvement and has been doing very well at home. He takes sips of clears for pleasure and cycles TPN daily. He has gained some weight and denies any abdominal symptoms. He presents today to review his CT which showed the following: CT ABD/PEL W IV CON 10/01/2023: Metastatic neuroendocrine tumor with grossly stable, multifocal measurable disease from recent priors as detailed. Sclerotic osseous foci suspected metastatic and grossly unchanged. Percutaneous gastrojejunostomy remains in place, with mild proximal duodenal dilation, similar to recent prior. No gross interval gastric outlet obstruction otherwise. Minimal residual ascites, intervally improved. FUNCTIONAL STATUS: Do moderate work around the house such as vacuuming, sweeping floors, or carrying in groceries (3.50 METs) PAST MEDICAL HISTORY Diagnosis Date Essential hypertension GERD (gastroesophageal reflux disease) PAST SURGICAL HISTORY Procedure Laterality Date ARTHROSCOPY KNEE DIAGNOSTIC W/WO SYNOVIAL BX SPX Bilateral COLONOSCOPY DIAGNOSTIC 2021 no polyps EGD DIAGNOSTIC 08/14/2023 FAMILY HISTORY Problem Relation Age of Onset Uterine Cancer Mother other (bile duct cancer) Sister Colon Cancer No Family History Social History Tobacco Use Smoking status: Never Smokeless tobacco: Never Vaping Use Vaping Use: Former Substance Use Topics Alcohol use: Yes Comment: a few beers per day Drug use: Not Currently MEDICATIONS Current Outpatient Medications Medication Sig Dispense Refill finasteride (PROSCAR) 5 mg tablet Take 5 mg by mouth every other day. pantoprazole DR (PROTONIX) 40 mg tablet Take 1 tablet by mouth every afternoon. ondansetron (ZOFRAN) 4 mg tablet TAKE 1 TABLET BY MOUTH EVERY 8 HOURS NEEDED FOR NAUSEA OR FOR VOMITING FOR UP TO 7 DAYS potassium (POTASSIMIN ORAL) Take by mouth. (Patient not taking: Reported on 10/02/2023) dilTIAZem CD (CARDIZEM CD, CARTIA XT) 180 mg 24 hr capsule Take 240 mg by mouth every morning. (Patient not taking: Reported on 10/02/2023) metoprolol succinate ER (TOPROL XL) 100 mg Take 50 mg by mouth one time only. (Patient not taking: Reported on 10/02/2023) tamsulosin (FLOMAX) 0.4 mg Take 0.4 mg by mouth one time only. (Patient not taking: Reported on 10/02/2023) losartan (COZAAR) 100 mg tablet Take 100 mg by mouth every morning. (Patient not taking: Reported on 10/02/2023) No current facility-administered medications for this visit. [...] and itching. Anemia: No PHYSICAL EXAMINATION BP 127/72 Pulse 76 Temp (Src) 97.7 (Oral) Resp 16 Ht 5' 9.5 (1.77m) Wt 150 lb (68.0kg) BMI 21.84 kg/(m2). General Appearance: Well appearing, alert, in no [...] Good capillary refill. Neuro: Gait normal. Reflexes (more content not included)... 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 He was admitted last month after PEG-J tube was placed but he could not tolerate TF likely to bowel congestion and formation of new moderate volume ascites. He was started on TPN with significant improvement and has been doing very well at home. He takes sips of clears for pleasure and cycles TPN daily. He has gained some weight and denies any abdominal symptoms. He presents today to review his CT which showed the following: CT ABD/PEL W IV CON 10/01/2023: Metastatic neuroendocrine tumor with grossly stable, multifocal measurable disease from recent priors as detailed. Sclerotic osseous foci suspected metastatic and grossly unchanged. Percutaneous gastrojejunostomy remains in place, with mild proximal duodenal dilation, similar to recent prior. No gross interval gastric outlet obstruction otherwise. Minimal residual ascites, intervally improved. FUNCTIONAL STATUS: Do moderate work around the house such as vacuuming, sweeping floors, or carrying in groceries (3.50 METs) PAST MEDICAL HISTORY Diagnosis Date Essential hypertension GERD (gastroesophageal reflux disease) PAST SURGICAL HISTORY Procedure Laterality Date ARTHROSCOPY KNEE DIAGNOSTIC W/WO SYNOVIAL BX SPX Bilateral COLONOSCOPY DIAGNOSTIC 2021 no polyps EGD DIAGNOSTIC 08/14/2023 FAMILY HISTORY Problem Relation Age of Onset Uterine Cancer Mother other (bile duct cancer) Sister Colon Cancer No Family History Social History Tobacco Use Smoking status: Never Smokeless tobacco: Never Vaping Use Vaping Use: Former Substance Use Topics Alcohol use: Yes Comment: a few beers per day Drug use: Not Currently MEDICATIONS Current Outpatient Medications Medication Sig Dispense Refill finasteride (PROSCAR) 5 mg tablet Take 5 mg by mouth every other day. pantoprazole DR (PROTONIX) 40 mg tablet Take 1 tablet by mouth every afternoon. ondansetron (ZOFRAN) 4 mg tablet TAKE 1 TABLET BY MOUTH EVERY 8 HOURS NEEDED FOR NAUSEA OR FOR VOMITING FOR UP TO 7 DAYS potassium (POTASSIMIN ORAL) Take by mouth. (Patient not taking: Reported on 10/02/2023) dilTIAZem CD (CARDIZEM CD, CARTIA XT) 180 mg 24 hr capsule Take 240 mg by mouth every morning. (Patient not taking: Reported on 10/02/2023) metoprolol succinate ER (TOPROL XL) 100 mg Take 50 mg by mouth one time only. (Patient not taking: Reported on 10/02/2023) tamsulosin (FLOMAX) 0.4 mg Take 0.4 mg by mouth one time only. (Patient not taking: Reported on 10/02/2023) losartan (COZAAR) 100 mg tablet Take 100 mg by mouth every morning. (Patient not taking: Reported on 10/02/2023) No current facility-administered medications for this visit. [...] and itching. Anemia: No PHYSICAL EXAMINATION BP 127/72 Pulse 76 Temp (Src) 97.7 (Oral) Resp 16 Ht 5' 9.5 (1.77m) Wt 150 lb (68.0kg) BMI 21.84 kg/(m^2). General Appearance: Well appearing, alert, in no [...] normal and symmetric. Sensation grossly intact. Abdomen: tube in place with minimal surrounding leak, small volume. 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 He recently developed acute ascites with TF intolerance and was started on TPN. Today appears in excellent shape and is gaining weight. CT demonstrates resolution of his ascites after 4 weeks. RECOMMENDATION I suspect that the likely reason for his recent TF intolerance is the acute venous congestion of his bowels following the portal vein occlusion as evidence by the development of new ascites. He has been doing very well on TPN and his ascites appears to have resolved with collaterals formation. Therefore, I discussed with him the option of laparoscopic surgical bypass (duodenojejunostomy) to restore the continuity of his GI tract so he can resume PO intake and remove the feeding tube. He verbalized his understanding and agreed. Medical Decision Making: Problems: High: Illness/injury w/ threat to life/body function Data: Unique source(s) for external note(s) reviewed: 3+ Unique test result(s) reviewed: 2 Assessment requiring an independent historian(s) Independent interpretation of test from other physician/QHCP Risk: High: Decision on elective major surgery w/ risk factors Medical Decision Making Level: 5 - High Cleveland Alberts MD [facility] October 02, 2023 documented in this encounter [facility] 10-01-2023 Note HNO ID: [id number] Author: CLAUDE FAITH RT(R) Service: ? Author Type: Technologist Type: Progress Notes Filed: 10/01/2023 09:06 Note Text: Radiology Service Progress Note PATIENT NAME: Aisha Julien DATE OF SERVICE: October 01, 2023 TIME: 9:05 AM PATIENT IDENTITY VERIFICATION COMPLETED USING TWO (2) IDENTIFIERS: Name and Date of confirmed by patient verbally. FALL SCREENING: Has the patient had 2 falls in the last year or 1 fall with injury or currently using an Ambulatory Assistive Device (Walker, Cane, Wheelchair, Crutches, etc.)? No PATIENT GENDER DATA: Male PATIENT RELEVANT IMPLANT DATA REVIEWED: Not Applicable RADIOLOGY DEPARTMENT: CT; Exam(s) Completed: Chest Abdomen Pelvis With IV and Oral contrast PERIPHERAL IV DATA: Site assessment: Clean,Dry and Intact, Site disposition Discontinued SIGNED BY: RT Norman(R) October 01, 2023 9:05 AM [facility] 10-01-2023 Note HNO ID: [id number] Author: MACY YOO RN Service: ? Author Type: Registered Nurse Type: Progress Notes Filed: 10/01/2023 08:31 Note Text: Radiology Service Progress Note DATE OF SERVICE: October 01, 2023 TIME: 8:30 AM PATIENT WEIGHT: 148LBS PATIENT IDENTITY VERIFICATION COMPLETED USING TWO (2) STANDARD IDENTIFIERS: Name and Date of confirmed by patient verbally. FALL SCREENING: Has the patient had 2 falls in the last year or 1 fall with injury or currently using an Ambulatory Assistive Device (Walker, Cane, Wheelchair, Crutches, etc.)? No PATIENT GENDER DATA: Male ALLERGIES: Reviewed and unchanged CONTRAST ALLERGY: No EXAM: CT -CONTRAST INDUCED NEPHROPATHY RISK FACTORS: Patient age > 60 years CREATININE: Creatinine Date Value Ref Range Status 09/05/2023 0.83 0.73 - 1.22 mg/dL Final 09/04/2023 0.80 0.73 - 1.22 mg/dL Final 09/03/2023 0.84 0.73 - 1.22 mg/dL Final Estimated Glomerular Filtration Rate Date Value Ref Range Status 09/05/2023 95 >=60 mL/min/1.73m? Final Comment: Estimated Glomerular Filtration Rate (eGFR) is calculated using the 2020 CKD-EPI creatinine equation. This equation utilizes serum creatinine, sex, and age as parameters. The creatinine assay has traceable calibration to isotope dilution-mass spectrometry. Refer to KDIGO guidelines for clinical interpretation. In patients with unstable renal function, e.g. those with acute kidney injury, the eGFR may not accurately reflect actual GFR. P.O.C.T. RESULTS: POC done: Yes, See Lab Tab October 01, 2023 TREATMENT: N/A IV SITE: Ambulatory: A peripheral IV was started in the Left antecubital site with a Angio cath: 20 gauge. IV SITE APPEARANCE: Clean,Dry and Intact SIGNATURE: Macy Yoo RN PATIENT NAME: Aisha Julien DATE: October 01, 2023 TIME: 8:30 AM [facility] 09-05-2023 Note [facility] 09-04-2023 Note [facility] 09-03-2023 Note [facility] 09-02-2023 Note HNO ID: [id number] Author: MARYAM MEJIA, LUCILLE Service: Care Management Author Type: Registered Nurse Type: Care Mgt Progress Note Filed: 09/02/2023 13:34 Note Text: cont. with TPN, optimize pt for OR planned Friday [facility] 09-02-2023 Note [facility] 09-01-2023 Note [facility] 08-31-2023 Note [facility] 08-30-2023 Note [facility] 08-29-2023 Note HNO ID: [id number] Author: LAYNE CARR, LUCILLE Service: ? Author Type: Registered Nurse Type: Nursing Progress Note Filed: 08/29/2023 16:30 Note Text: 1630 paged SROC, is it ok to use picc if so we need an order. [facility] 08-29-2023 Note [facility] 08-29-2023 Note [facility] 08-28-2023 Note HNO ID: [id number] Author: CLEVELAND ALBERTS MD Service: ? Author [...] Neuro: Gait deangelo (more content not included)... [facility] 08-28-2023 History of Past i llness Narrative Problem Noted Date Diagnosed Date Resolved Date Dehydration 08/28/2023 09/05/2023 documented as of this encounter (statuses as of 10/03/2023) [facility]01-02-2024 NoteHNO ID: [id number] Author: Andreas Ford, DO Service: ? Author Type: Fellow Type: Progress Notes Filed: 08/26/2023 12:36 PM Note Text: [facility] Multidisciplinary Rpfuma-Nksmvtpav-Mdnsqrn AND Upper GI Case Conference -- Consensus [...] if able Andreas Ford DO [facility]-2023 [facility] 08-17-2023 NoteHNO ID: [id number] Author: Margot Gonzalez RN Service: ? Author Type: Registered Nurse Type: Nursing Progress Note Filed: 08/17/2023 3:34 AM Note Text: 0030 New TF bag hung, TF advanced to 50 ml/hr no c/o gastric upset or nausea.[facility]60[facility]1802 [facility]12-23-2023 [facility]12-22-2023 [facility]12-22-2023 [facility] 08-14-2023 [facility]12-21-2023 [facility]12-21-2023 Miscellaneous Notes* Telephone Encounter - Jessie Zamora RN - 08/14/2023 9:12 AM EST Kindra from [employer] [facility] returned call yesterday stating that she had emailed short term disability papersto the patient - they spoke on Friday. Informed me that they need a letter stating an estimated return to work date, when was the first day he was unable to work, and the reasoning. Letter to be faxed and will ask patient for the emailed paperwork. * Telephone Encounter - Jessie Zamora RN - 08/13/2023 10:24 AM EST Call made to [facility] - patient employer to get [facility] paperwork for him. Left a VM with Kindra. Gave her cell number to call back and/or fax number to fax paperwork. documented in this encounterSam[facility]itan [facility]12-20-2023 [facility]12-19-2023 [facility]12-18-2023 Note [facility]Wprbdiei30-89-8716 NoteBarnstable County HospitalQrebmhat56-10-5469 [place]Michael [place] [address]-15-2023 NoteBarnstable County HospitalHagmjtxu90-29-1832 History and physical note* Cleveland Alberts MD - 08/07/2023 2:25 PM EST New Patient Consult REASON FOR VISIT Consultation [...] an outside hospital 2 weeks ago with symptomsof gastric outlet obstruction. He received an upper endoscopy by Dr. 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 This was biopsied but pathology returned negativefor malignancy. During that admission he had a CT abdomen/pelvis without contrast due to dehydration and elevated creatinine. This demonstrated a lesion in the uncinate process of the pancreas versusthe third portion of the duodenum with obstruction at the site. Given the absence of contrast it isdifficult to study the origin of the mass and its relationship to the SMA/SMV. The patient continued to have progressive obstructive symptoms. He can only tolerate small amounts of clear liquids. Otherwise he continues to have hiccups, burping, and frequent vomiting. The emesisalternates between bilious and yellow in color. He [...] or clotting disorder. Pt is not taking anti- coagulation or platelet medications. No history of hematological [...] and symmetric. Sensation grossly intact. Abdomen: Negative Broke Worker present: Yes () ASSESSMENT 68-year-old male with excellent functional status and no significant history who presented to an outside hospital with near complete gastric outlet obstruction that was attributed to an uncinate process mass versus D3 mass based on a CT scan without contrast. Upper endoscopy favors extrinsic compression of the duodenum but biopsies were negative. The patient continues to have progressive symptomsof obstruction and has been severely malnourished for the past 4 weeks. RECOMMENDATION I expressed to the patient my concern about his nutritional status. He can only tolerate small amounts of liquids and has not had adequate caloric intake for many weeks. He is also rapidly losing weight. I recommended admission to the hospital with NG decompression, parenteral nutrition, and higherquality CT scan with IV contrast if his [...] ability for oral nutrition. The patient and hiswife understand the components of this plan and [...] Medical Decision Making Level: 5 - High Clevealnd Alberts MD [facility] / [facility] August 07, 2023 documented in this encounterSamaritan [facility] Center12-12-2023 Miscellaneous Notes* Telephone Encounter - Jessie Zamora RN - 08/05/2023 10:42 AM EST Called patient and spoke with him about coming for a visit with Dr. Alberts. Patient understands he was referred by Dr. Linder. Asked patient to bring any past medical history with him. Patient understanding and thankful for call and appointment. *Requested images to be pushed from [employer] 08/05. Also faxed release of information to patients PCP - Dr. Cannon in [facility]. documented in this encounterSamaritan [facility] Center12-05-2023 Miscellaneous Notes* Telephone Encounter - Vicki Rosario - 07/29/2023 3:36 PM EST New patient referral from Dr. Linder's office ([phone]) to Dr. Alberts for Duodenal Mass. Contacted the office to resend records. Please advise on scheduling documented in this encounterSamaritan North Health Center12-02-2023 Progress note Author Jose A Glezyohanasabrina [facility] July 26, 2023 11:49am Note Date/Time July 26, 2023 1 1:49am [facility] [address] [place] [address] Nephrology Progress Note Signed Patient: Aisha Julien MR#: [id number] : 1955 Acct:[id number] Age/Sex: 68 / M Adm Date: 3 Loc: 3T Room: [address] [place] [address] Type: ADM IN Attending Dr: Gela Eller [...] Tablet) 5 mg PO QAM [facility] Stop: 07/24/24 08:59 Last Admin: 07/26/23 08:40 Dose: 5 mg Hydralazine HCl (Hydralazine 20 Mg/Ml Vial) 10 mg IV-PUSH Q4H PRN PRN Reason: if SBP > 185 Stop: 07/23/24 16:29 Hydromorphone HCl (Hydromorphone 1 Mg/Ml Syringe) 0.25 mg IV-PUSH Q4H PRN PRN Reason: pain Lactated Ringer's (Lactated Ringers) 1,000 mls @ 75 mls/hr IV .[id number] [facility] Stop: 07/24/24 13:14 Last Admin: [...] 07/26/23 1146 Signed By: <Electronically signed by oJse A Calzada MD> 07/26/23 1149 [facility] Work Phone: 1(916) 527-439612-01-2023 Progress note Author Gela Eller [facility] July 25, 2023 12:59pm Note Date/Time July 25, 2023 1 2:59pm [facility] [address] [place] [address] Hospitalist Progress Note Signed Patient: Aisha Julien MR#: [id number] : 1955 Acct:[id number] Age/Sex: 68 / M Adm Date: 3 Loc: Room: [address] [place] [address] Type: ADM IN Attending Dr: Gela Eller [...] 5 Mg Tablet PO 07/24/24 08:59 QAM [facility] Hydralazine HCl 10 mg 07/24/23 16:30 Hydralazine [...] signed by Gela Eller MD> 07/25/23 1259 [facility] Work Phone: 1(589) 536-739012-01-2023 History and physical note Author Gela Eller [facility] July 25, 2023 12:57pm Note Date/Time July 24, 2023 4:18pm [facility] [address] [place] [address] Hospitalist H&P Signed Patient: Aisha Julien MR#: [id number] : 1955 Acct:[id number] Age/Sex: 68 / M Adm Date: 3 Loc: Room: [address] [place] [address] Type: ADM IN Attending Dr: Gela Eller [...] any coronary artery disease. Ventriculogram showed ejection [id number]% Admission EKG showed normal sinus rhythm without [...] mass, portal vein/SMV thrombosis cannot be excluded. [facility] Medical History (Updated 07/25/23 @ 12:42 by [...] % (Auto) 12.6 % (.) 07/24/23 12:28 Osborne % (Auto) 10.3 % (.) 07/24/23 12:28 Eos % (Auto) 1.0 % (.) 07/24/23 12:28 Baso % (Auto) 0.5 % (.) 07/24/23 12:28 Nucleat RBC Rel Count 0.2 /100 WBC (0-0.5) 07/24/23 12:28 Neut # (Auto) 5.5 x10E3/uL (1.8-7.7) 07/24/23 12:28 Lymph # (Auto) 0.9 x10E3/uL (1.00-4.8) L 07/24/23 12:28 Osborne # (Auto) 0.8 x10E3/uL (0.0-0.8) 07/24/23 12:28 [...] pH 5.5 (5.0-9.0) 07/24/23 13:54 Ur Specific Porcupine 1.015 (1.001-1.030) 07/24/23 13:54 Urine Protein 30 [...] <Electronically signed by Gela Eller MD> 07/25/[address] [place] [address] Ctr Work Phone: 1(288) 740-563212-01-2023 Consult note Author Jose A Calzada [facility] July 25, 2023 12:45pm Note Date/Time July 25, 2023 1 2:45pm [facility] [address] [place] [address] Nephrology Consult Note Signed Patient: Aisha Julien MR#: [id number] : 1955 Acct:[id number] Age/Sex: 68 / M Adm Date: 3 Loc: Room: [address] [place] [address] Type: ADM IN Attending Dr: Gela Eller [...] 12 system review is negative this morning [facility] Medical History (Updated 07/25/23 @ 12:42 by [...] 5 Mg Tablet) 5 mg PO QAM [facility] Stop: 07/24/24 08:59 Hydralazine HCl (Hydralazine 20 [...] Appearance Clear Urine pH 5.5 Ur Specific Porcupine 1.015 Urine Protein 30 H Urine Glucose (UA) Normal Urine Ketones Trace H Urine Occult Blood Negative Urine Nitrite Negative Ur Leukocyte Esterase Negative Urine RBC 5-9 H Urine WBC 0-1 Urine Bacteria None seen 07/25/23 05:46 BUN 44 H Creatinine 2.86 H D Albumin 3.4 L Urine Color Urine Appearance Urine pH Ur Specific Porcupine Urine Protein Urine Glucose (UA) Urine Ketones [...] [place] Jr., D.O.07/24/2023 2:43 PM Dictation Location: [place] [address] Any impression(s) listed above is documentation that [...] signed by Jose A Calzada MD> 07/25/23 6442 [facility] Work Phone: 1([phone]) 600-254412-01-2023 Procedure [facility]11-30-2023 Consult note Author Nohemy Linder [facility] July 24, 2023 4:38pm Note Date/Time July 24, 2023 4:35pm [facility] [address] [place] [address] Gastroenterology Consult Note Signed Patient: Aisha Julien MR#: [id number] : 1955 Acct:[id number] Age/Sex: 68 / M Adm Date: 3 Loc: Room: [address] [place] [address] Type: ADM IN Attending Dr: Gela Eller [...] negative unless noted below or in HPI [facility] Medical History (Updated 07/24/23 @ 16:37 by [...] finasteride 5 mg tablet 5 mg PO [facility] 01/15/23 [History Confirmed 07/24/23] potassium gluconate 595 mg (99 mg) tablet 99 mg PO [facility] 01/15/23 [History Confirmed 07/24/23] Exam Physical Exam [...] % (Auto) 75.6 Lymph % (Auto) 12.6 Osborne % (Auto) 10.3 Eos % (Auto) 1.0 Baso % (Auto) 0.5 Nucleat RBC Rel Count 0.2 Neut # (Auto) 5.5 Lymph # (Auto) 0.9 L Osborne # (Auto) 0.8 Eos # (Auto) 0.1 [...] Color Urine Appearance Urine pH Ur Specific Porcupine Urine Protein Urine Glucose (UA) Urine Ketones Urine Occult Blood Urine Nitrite Urine Bilirubin Urine Urobilinogen Ur Leukocyte Esterase Urine RBC Urine WBC Ur Squamous Epith Cells Urine Bacteria Hyaline Casts 07/24/23 07/24/23 07/24/23 12:28 12:28 13:54 Corrected WBC Uncorrected WBC Count RBC Hgb Hct MCV MCH MCHC RDW Plt Count MPV Neut % (Auto) Lymph % (Auto) Osborne % (Auto) Eos % (Auto) Baso % (Auto) Nucleat RBC Rel Count Neut # (Auto) Lymph # (Auto) Osborne # (Auto) Eos # (Auto) Baso # [...] Appearance Clear Urine pH 5.5 Ur Specific Porcupine 1.015 Urine Protein 30 H Urine Glucose [...] signed by Nohemy Linder MD> 07/24/23 1638 [facility] Work Phone: 1(172) 903-603507-01-2023 Evaluation note* Encounter Date Diagnosis Assessment Notes Treatment Notes Treatment Clinical Notes Feb, Visit for suture removal (ICD-10 - Z48.02) sutures removed successfully--see procedural note. wound healed up well. no questions or concerns. follow up with PCP prn. Feb, Laceration of nose, initial encounter (ICD-10 - S01.21XA) lac repair done in [facility] Other 05-26-2023 Discharge summary Author Joselito Madsen [facility] January 17, 2023 10:24am Note Date/Time January 17, 2023 10:22 am [facility] [address] [place] [address] Discharge Summary Signed Patient: Aisha Julien MR#: [id number] : 1955 Acct:[id number] Age/Sex: 67 / M Adm Date: 3 [...] p CL [facility] & [facility] Angio - W Jean Madsen DO Complications Complications: None Exam Physical Exam Vital Signs: Temp Pulse Resp BP Pulse Ox O2 Del Method 98.1 F 73 16 155/79 H 98 Room Air 01/17/23 07:01/17/23 07:01/17/23 07:01/17/23 07:01/17/23 07:01/17/23 07:52 Discharge Plan Discharge Plan Patient Disposition: Home Diet: Low-Cholesterol Additional Instructions: DISCHARGE INSTRUCTIONS FOR CARDIAC ARTIFICIAL TEETH INSPECTOR PHONE NUMBER OF YOUR PHYSICIAN: [phone] PROCEDURE: Heart Cath The following instructions have [...] cold, numb, blue or white, call the tennis desk team member immediately. 4. ACTIVITY: You are advised to [...] bottle, follow the instructions on the bottle. [facility] is not responsible for incorrect prescription [...] signed by Joselito Madsen DO> 01/17/23 1024 [facility] Work Phone: 1(545) 901-400005-26-2023 [facility]03-30-2022 Evaluation note* Encounter Date Diagnosis Assessment Notes Treatment Notes Treatment Clinical Notes Oct, Abdominal pain (ICD-10 - R10.9) OBTAIN RECORDS FROM [facility]- UPPER GI OBTAIN COLONOSCOPY AND CT [facility]AN[facility] Oct, Gastritis without bleeding, unspecified chronicity, unspecified gastritis type (ICD-10 - K29.70) Oct, GERD (gastroesophageal reflux disease) (ICD-10 - K21.9) STOP FAMOTIDINE [facility] Other 03-16-2022 History of Present illness Narrative* Caity Hamilton RCP - 11/07/2021 12:30 PM EDT The patient was educated on the use of an event monitor. The patient's comprehension was high. The patient was able to verbalize recall. The patient was instructed on how and when to return the monitor. documented in this [facility] Phone: 1(194) 854-523603-16-2022 Note [facility] Vascular Carotid Procedure Patient Name MARY BETH LEONARD Date of Study 11/07/2021 L Date of 1955 Gender Male Age 66 year(s) Race Room Number Corporate ID [id number] # Patient Acct [id number] # MR # [id number] Oracle Database Manager RT Gómez Interpreting Estephania Pichardo Physician Referring Referring Physician RENE CANNON, Nurse VERNA* Practitioner INOCENCIO GUTIERREZ ELA * Procedure Type of Study: Cerebral: Carotid, Carotid Scan Bilateral. Indications for Study:Bruit, carotid. Patient Status:Routine. Conclusions Summary Mild increase in prox CCA velocity, without spectral broadening, not considered significant. Minimal plaque right CCA. Negative left sided study. Antegrade flow in the vertebrals. Signature Electronically signed by RT Gómez(Rosales)(M)(CT)([facility])(Oracle Database Manager) on 11/07/2021 11:33 AM Findings: Right Impression: [...] !Mid ICA !87.54 !27.97 (more content not included)...[facility] CPACSEvaluation note* Diagnosis Chest pain, unspecified type Syncope, unspecified syncope type documented in this encounter [facility] Work Phone: evaluation note* Diagnosis Bruit Other symptoms involving cardiovascular system documented in this encounter [employer] Phone: evaluation noteNo InformationNort eventblimp Other Evaluation noteNo assessment information available [facility] Work Phone: Evaluation note* Diagnosis Onset Date Resolution Status Acute renal failure acute Epigastric pain acute Hypokalemia acute Hypotension acute Small bowel mass acute Unintentional weight loss ac estela [facility] Work Phone: Evaluation note* Diagnosis Onset Date Resolution Status Acute renal failure acute Duodenal mass acute Epigastric pain acute Hypokalemia acute Hypotension acute Small bowel mass acute Unintentional weight loss [facility] Work Phone: Evaluation note* Diagnosis Gastric outlet obstruction- Primary Acquired hypertrophic pyloric stenosis documented in this encounter [facility]* Diagnosis Gastric outlet obstruction- Primary 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) Encounter for attention to gastrostomy (HCC) Attention to gastrostomy Severe protein-calorie malnutrition (HCC) Other severe protein-calorie malnutrition documented in this encounter [facility] Narrative - Reported* Type Description Date Medical History HTN Medical History GERD Surgical History knee arthroscopy BILATEAL-3 RAMSES ES EACH [facility] Other History general Narrative - Reported* Type Description Date Medical History HTN Medical History GERD Surgical History knee arthroscopy BILATEAL-3 RAMSES ES EACH Hospitalization History DEHYDRATION [facility] Other Hospital Discharge instructions Additional Instructions DISCHARGE INSTRUCTIONS FOR CARDIAC ARTIFICIAL TEETH INSPECTOR PHONE NUMBER OF YOUR PHYSICIAN: [phone] PROCEDURE: Heart Cath The following instructions have [...] cold, numb, blue or white, call the tennis desk team member immediately. 4. ACTIVITY: You are advised to [...] bottle, follow the instructions on the bottle. [facility] is not responsible for incorrect prescription information provided by the patient during their visit. Do not stop your medications without consulting your health care provider. Please take the list with you to your next doctor's appointment.[facility] Work Phone: Hospital Discharge instructions Additional Instructions You will need to follow-up with [facility] physician Dr. Bety Amin for further evaluation of your duodenal mass. Dr. Tadeo's office will arrange appointment and we will give you a [facility] Work Phone: Progress note Author Gela Eller [facility] July 26, 2023 2:50pm Note Date/Time July 26, 2023 2 :50pm [facility] [address] [place] [address] Hospitalist Progress Note Signed Patient: Aisha Julien MR#: [id number] : 1955 Acct:[id number] Age/Sex: 68 / M Adm Date: 3 Loc: 3T Room: [address] [place] [address] Type: ADM IN Attending Dr: Gela Eller [...] Lactated Ringers IV 07/24/24 13:14 75 mls/hr .[id number] [facility] Administration Sodium Chloride 1,000 mls @ [...] external mass effect/compression I did discuss with customer service professional, his office will arrange follow-up with gastroenterology [...] signed by Gela Eller MD> 07/26/23 1450 [facility] Work Phone: Summary Purpose Family [...] Procedures Cardiac event monitor Douglas Gutierrez MD [address] [place] [id number] Referral ID Status Reason Start Date Expiration Date Visits Re quested Visits Authorized [id number] Closed 10/25/2021 10/25/2022 1 1 Specialty Diagnoses / Procedures Referred By Erlin t Referred To Contact Cardiology Diagnoses Chest pain, unspecified type Syncope, unspecified syncope type R07.9 (ICD-10-CM) - Chest pain, unspecified type Procedures Stress test, myoview CHG MYOCARDIAL SPECT MULTIPLE STUDIES 72657 - CHG MYOCARDIAL SPECT MULTIPLE STUDIES Douglas Gutierrez MD [address] [place] [address] [facility] [address] [place] [address] Referral ID Status Reason Start Date Expiration Date Visits Re quested Visits Authorized [id number] Closed 10/25/2021 10/25/2022 4 4 Specialty Diagnoses / Procedures Referred By Erlin t Referred To Contact Vascular Lab Diagnoses Bruit R09.89 (ICD-10-CM) - Bruit Procedures VL DUP CAROTID BILATERAL W[place] DUPLEX SCAN EXTRACRANIAL,BILAT 59517 - W[place] DUPLEX SCAN EXTRACRANIAL,BILAT Douglas Gutierrez MD [address] [place] [address] Referral ID Status Reason Start Date Expiration Date V isits Requested Visits Authorized [id number] Pending Review 10/25/2021 10/25/2022 1 1 Chief [...] section and content) DATE CREATED AUTHOR 10/17/2021 [facility] dical Specialist DATE CREATED AUTHOR AUTHOR'S ORGANIZ ATION 11/04/2021 [facility] DATE CREATED AUTHOR AUTHOR'S ORGANIZ ATION 12/15/2021 [facility] DATE CREATED AUTHOR AUTHOR'S ORGANIZ ATION 07/05/2022 [facility] DATE CREATED AUTHOR AUTHOR'S ORGANIZ ATION 02/03/2023 [facility] DATE CREATED AUTHOR AUTHOR'S ORGANIZ ATION 08/01/2023 [facility] EPIC DATE CREATED AUTHOR AUTHOR'S ORGANIZ ATION 09/04/2023 [facility] DATE CREATED AUTHOR AUTHOR'S ORGANIZ ATION 09/08/2023 [facility] DATE CREATED AUTHOR AUTHOR'S ORGANIZ ATION 10/04/2023 [facility] Reason for Visit (unrecogniz ed section and content) Specialty Diagnoses / Procedures Referred By Contac t Referred To Contact Diagnoses Chest pain, unspecified type Syncope, unspecified syncope type Procedures Cardiac event monitor Douglas Gutierrez MD [address] [place] [address] Referral ID Status Reason Start Date Expiration Date Visits Re quested Visits Authorized [id number] Closed 10/25/2021 10/25/2022 1 1 Specialty Diagnoses / Procedures Referred By Contac t Referred To Contact Cardiology Diagnoses Chest pain, unspecified type Syncope, unspecified syncope type R07.9 (ICD-10-CM) - Chest pain, unspecified type Procedures Stress test, myoview CHG MYOCARDIAL SPECT MULTIPLE STUDIES 29142 - CHG MYOCARDIAL SPECT MULTIPLE STUDIES Douglas Gutierrez MD [address] [place] [address] [facility] [address] [place] [address] Referral ID Status Reason Start Date Expiration Date Visits Re quested Visits Authorized [id number] Closed 10/25/2021 10/25/2022 4 4 Specialty Diagnoses / Procedures Referred By Contac t Referred To Contact Vascular Lab Diagnoses Bruit R09.89 (ICD-10-CM) - Bruit Procedures VL DUP CAROTID BILATERAL [place] DUPLEX SCAN EXTRACRANIAL,BILAT [id number] - [place] DUPLEX SCAN EXTRACRANIAL,BILAT Douglas Gutierrez MD [address] [place] [address] Referral ID Status Reason Start Date Expiration Date V isits Requested Visits Authorized [id number] Pending Review 10/25/2021 10/25/2022 1 1 Reason Comments Appointment Reason Comments New Patient Evaluation Reason Comments FMLA Paperwork Reason Comments Follow Up Gastric outlet obstr uction Care Teams (unrecognized sec tion and content) [...] Active Nohemy Linder MD Other Provider Active [employer] Relationship Specialty Start Date End Date Rene Cannon MD [address] [place] [address] PCP - General 10/17/21 [employer] Relationship Specialty Start Date End Date Rene Cannon [facility] [address] [facility] [place] [address] PCP - General 10/17/21 [employer] T[employer] Relationship Specialty Start Date End Date Rene Cannon MD [address] [place] [address] PCP - General 10/17/21 [employer] Tender Relationship Specialty Start Date End Date Rene Cannon MD [address] [facility] [place] [address] PCP - General 10/17/21 [employer] Tender Relationship Specialty Start Date End Date Rene Cannon MD [address] [facility] [place] [address] PCP - General 10/17/21 Team Status: Inactive Member Role Status Dates Rene Cannon MD Primary Care Provider Active Joselito Madsen DO Attending Provider Active [employer] Tender Relationship Specialty Start Date End Date Rene Cannon MD [address] [place] [address] (Fax) PCP - General Family Medicine 08/05/23 [employer] 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 Tender Relationship Specialty Start Date End Date Rene Cannon MD [address] [facility] [place] [address] (Fax) PCP - General Family Medicine 08/05/23 [employer] 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 Tender Relationship Specialty Start Date End Date Rene Cannon MD [address] [place] [address] (Fax) PCP - General Family Medicine 08/05/23 [employer] 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 Tender Relationship Specialty Start Date End Date Rene Cannon MD [address] [facility] [place] [address] (Fax) PCP - General Family Medicine 08/05/23 [employer] Machine Tender Relationship Specialty Start Date End Date Rene Cannon MD [address] [facility] [place] [address] (Fax) PCP - General Family Medicine 08/05/23 Source Comments (unrecognize d section and content) In the event this informatio n is protected by the Federal Confidentiality of Alcohol and Drug Abuse Patient Records regulations: The Federal rules restrict any use of the information to criminally investigate or prosecute any alcohol or drug abuse patient.[facility] the event this information is protected by the Federal Confidentiality of Alcohol and Drug Abuse Patient Records regulations: The Federal rules restrict any use of the information to criminally investigate or prosecute any alcohol or drug abuse patient.[facility] the event this information is protected by the Federal Confidentiality of Alcohol and Drug Abuse Patient Records regulations: The Federal rules restrict any use of the information to criminally investigate or prosecute any alcohol or drug abuse patient.[facility] the event this information is protected by the Federal Confidentiality of Alcohol and Drug Abuse Patient Records regulations: The Federal rules restrict any use of the information to criminally investigate or prosecute any alcohol or drug abuse patient.[facility] the event this information is protected by the Federal Confidentiality of Alcohol and Drug Abuse Patient Records regulations: The Federal rules restrict any use of the information to criminally investigate or prosecute any alcohol or drug abuse patient.[facility] the event this information is protected by the Federal Confidentiality of Alcohol and Drug Abuse Patient Records regulations: The Federal rules restrict any use of the information to criminally investigate or prosecute any alcohol or drug abuse patient.[facility] FOR RECORDS PERTAINING TO PATIENTS WHO ARE [...] BE BASED ON THE PRIMARY CLINICAL RECORDS. [facility] [employer] [facility] provides no warranty or guarantee of the accuracy or completeness of information in this document.
[2023-10-06 12:18] LABS: Alanine Aminotransferase 25 U/L (16-63); Albumin Globulin Ratio 0.7; Albumin Level 2.6 g/dL (3.4-5.0); Alkaline Phosphatase 197 U/L (46-116); Anion Gap 15.5; Aspartate Amino Transferase 25 U/L (15-37); BUN Creatinine Ratio 19.3; Bilirubin Total 0.9 mg/dL (0.2-1.0); Calcium 8.1 mg/dL (8.5-10.1); Carbon Dioxide 27.6 mmol/L (21.0-32.0); Chloride 98 mmol/L (98-107); Estimated GFR (African America 49 (>=60); Estimated GFR (Non-African Ame 40 (>=60); Globulin 3.7 g/dL; Glucose 111 mg/dL (74-106); Magnesium 1.8 mg/dL (1.8-2.4); Phosphorus 3.5 mg/dL (2.6-4.7); Potassium 3.1 mmol/L (3.5-5.1); Sodium 138 mmol/L (136-145); Total Protein 6.3 g/dL (6.4-8.2); Triglycerides 39 mg/dL (<=150)
[2023-10-06 12:49] LABS: Hematocrit 34.3 % (42.0-54.0); Hemoglobin 11.4 g/dL (14.0-18.0); Mean Corpuscular HGB Conc 33.2 g/dL (29.9-35.2); Mean Corpuscular Hemoglobin 29.6 pg (25.9-34.0); Mean Corpuscular Volume 89.1 fL (80.0-94.0); Mean Platelet Volume 12.2 fL (9.5-13.5); Platelet Count 179 10^3/uL (150-450); Red Blood Count 3.85 10^6/uL (4.70-6.10); Red Cell Distribution Width 13.7 % (11.0-15.0); White Blood Count 18.3 10^3/uL (4.0-11.0)
[2023-10-06 15:12] LABS: Band Neutrophils Absolute 0.5 10^3/uL (0.0-0.3); Segmented Neut Absolute Manual 16.28 10^3/uL (1.4-6.5)
[2023-10-06 15:13] LABS: Lymphocytes Absolute Manual 0.36 10^3/uL (1.20-3.80); Monocytes Absolute Manual 1.09 10^3/uL (0.30-0.80); Toxic Vacuolation 1+
== END 2023-10-06 11:29 | disposition home or self-care (01) ==
LOC: LAB 11:28
DX: Z79.899 Other long term (current) drug therapy (principal)
CPT/HCPCS: 36415; 80053; 83735; 84100; 84478; 85007; 85027

== ENCOUNTER 2023-10-11 13:40 | Outpatient (REF) | payer BC, SELFPAY ==
--- OUTSIDE RECORDS SUMMARY | 2023-10-11 13:48 | XMS_ITS | CCD ---
Author Name Unknown Address [address] [facility] [address] [place] [address] Organization [facility] Care Team Providers Care Medical Secretary Teacher Name Role Phone DAVIS, DR IRELAND Admitting Unavailable HEMEYER, DR IRELAND Attending Unavailable HEMEYER, DR IRELAND Primary Care Unavailable HEMEYER, DR IRELAND Consulting Unavailable KATHRYN, DR DEBORAH Carl Consulting Unavailable VIGESDOUGLAS COMBS Admitting Unavailable VIGESAA, DOUGLAS Attending Unavailable HEMEYER, DR IRELAND Primary Care Unavailable KATHRYN, DR DEBORAH Carl Consulting Unavailable VIGESLAURYN, DOUGLAS Consulting Unavailable DAVIS, DR IRELAND Admitting Unavailable HEMEYER, DR IRELAND Attending Unavailable HEMEYER, DR IRELAND Primary Care Unavailable HEMEYER, DR IRELAND Consulting Unavailable HEMEYER, DR IRELAND Admitting Unavailable HEMEYER, DR IRELAND Attending Unavailable HEMEYER, DR IRELAND Primary Care Unavailable HEMEYER, DR IRELAND Consulting Unavailable Beatrizyer Rene ARNDT Primary Care Provider DOUGLAS GUTIERREZ Referring Unavailable HEMESB, RENE Bynum Primary Care Unavailable HEMEYER, RENE Bynum Primary Care Unavailable VIGESAA, DOUGLAS S Referring Unavailable VIGESAA, DOUGLAS S Referring Unavailable HEMESB, RENE Bynum Primary Care Unavailable VIGESAA, DOUGLAS S Referring Unavailable HEMEYER, RENE Bynum Primary Care Unavailable VIGESAA, DOULGAS S Referring Unavailable HEMEYER, RENE Bynum Primary Care Unavailable HEMEYER, RENE Bynum Primary Care Unavailable VIGESAA, DOUGLAS S Referring Unavailable Deborah Magallanes Unavailable INOCENCIO GUTIERREZ Attending Unavailab INOCENCIO Pavon Admitting Unavailab MD Rene Ramos Primary Care Provider DO Joselito Madsen Attending Provider [phone] Arnel Madsen Referring Unavailable Davis, Dr. Rene Diana Primary Care Unava ilable Arnel Madsen Attending Unavailable Arnel Masden Referring Unavailable Dr. Rene Cannon [facility] Unava ilable Arnel Madsen Attending Unavailable Rene Cannon Unavailable Unavailable Unavailable Chantal Castellanos Unavailable MD Rene Cannon Primary Care Provider DO Jean Paul Gutiérrez Emergency Provider MD Gela Eller Admit Provider MD Gela Eller Attending Provider MD Elsi Azluis Other Provider MD Niyah Imad Other Provider Unavailable Primary Care Provider Unavailabl e RENE CANNON Attending Unavailable RENE CANNON Attending Unavailable RENE CANNON Attending Unavailable Rene Cannon MD Primary Care Provider Asahilary, Imad Unavailable BOLIVAR DEAL Consulting Unavailable RENE CANNON [facility] Unavailab le NAFFOUSILVANO, SAMER A Attending Unavailable NAFFOUSILVANO, SAMER A Admitting Unavailable NAFAMANDA, SAMER A Admitting Unavailable RENE CANNON [facility] Unavailab le NAFFOUSILVANO, SAMER A Attending Unavailable DO Cali Patterson Admit Provider DO Cali Patterson Attending Provider RENE CANNON [facility] Unavailab le NAFFOUSILVANO, SAMER A Attending Unavailable RENE CANNON [facility] Unavailab le RENE CANNON Primary Care Unavailab le NAFFOUJE, SAMER A Referring Unavailable NAFFOUJE, SAMER A Attending Unavailable ASAAD, IMAD Referring Unavailable NAFAMANDA, SAMER A Attending Unavailable DAVIS MICKEY DIANA [facility] Unavailab le Rene Cannon Primary Care Unavailable Semaskgaylae, Gela Admitting Unavailable Gela Eller Attending Unavailable Jose A Calzada Consulting Unavailable Niyah, Imad Consulting Unavailable Rene Cannon Primary Care Unavailable Cali Patterson Admitting Unavailable Cali Patterson Attending Unavailable Tyra Suarez Consulting Unavailable Joselito Madsen Attending Unavailable Rene Cannon Primary Care Unavailable Joselito Madsen Admitting Unavailable Rene Cannon Primary Care Unavailable Joselito Madsen Admitting Unavailable Joselito Madsen Attending Unavailable MD Tyra Suarez Other Provider DO Johnny Mendoza Attending Provider [phone] Medications Current Medications Medication Drug Class(es) Dates Sig (Normalized) Sig (Original) Calcium-Carb 600 + D 600-125 MG-UNIT (3 sources) take 1 tablet by mouth twice daily Calcium-Carb 600 + D 600-125 MG-UNIT 1 tablet Orally Twice a day Active ertapenem 1000 mg injection (1 source) Penem Antibacterial Start: 10-09-2023 take 1 g intravenously every twenty-four hours Ertapenem Active 1 GM IV Q24H 14 October 09, 2023 12:00am famotidine 20 mg oral tablet (9 sources) Histamine-2 Receptor Antagonist Start: 10-23-2021 take 1 tablet by mouth once daily famotidine (PEPCID) 20 MG tablet Take 1 tablet by mouth nightly 90 tablet 1 10/23/2021 Active pantoprazole 40 mg delayed release oral tablet (10 sources) Proton Pump Inhibitor Start: 07-26-2023 take 1 tablet by mouth once daily Pantoprazole (Protonix) 40 mg tablet,delayed release (DR/EC) Active 40 MG PO Daily July 26, 2023 12:00am Start: 12-20-2021 take 1 tablet by seda th every twenty-four hours Pantoprazole Sodium 40 MG 1 tablet Orally Once a day for 30 days Nov, Active Comment on above: Take 1 tablet by seda th every afternoon. Completed/Discontinued Medications Medication Drug Class(es) Dates Sig [...] 10/23/2021 Active Calcium Carbonate / vitamin D3 (4 sources) Start: 11-29-2021 End: 01-15-2023 take 1 tablet by mouth once daily Calcium Carbonate-Vitamin D3 Discontinued 1 TAB PO Daily November 28, 2021 11:00pm January 15, 2023 7:09am dicyclomine hydrochloride 10 mg oral capsule (11 sources) Anticholinergic Start: 11-29-2021 End: 01-15-2023 take 10 mg by mouth once daily Dicyclomine Discontinued 10 MG PO Daily November 28, 2021 11:00pm January 15, 2023 7:10am Start: 10-24-2021 take 1 capsule by mo akh once daily in the evening dicyclomine (BENTYL) [...] every morning. finasteride 5 mg oral tablet (15 sources) 5-alpha Reductase Inhibitor Start: 05-25-2023 take [...] day. hyoscyamine sulfate 0.125 mg sublingual tablet (11 sources) Start: 11-29-2021 End: 01-15-2023 take 0.125 [...] Receptor Keshawn Start: 10-23-2021 End: 07-26-2023 take 100 mg by mouth once daily in the morning Losartan Discontinued 100 MG PO Every morning November 28, 2021 11:00pm July 26, 2023 12:25pm Comment on above: Take 100 mg by mouth every morning. 24 hr metoprolol succinate 100 mg extended release oral tablet (20 sources) beta-Adrenergic Keshawn Start: 07-10-2023 take 50 mg by mouth once metoprolol succinate ER (TOPROL XL) 100 mg Take 50 mg by mouth one time only. 0 07/10/2023 Active Start: 11-29-2021 End: 10-06-2023 take 50 mg by mouth once daily in the morning Metoprolol Succinate Discontinued 50 MG PO Every morning November 28, 2021 11:00pm October 06, 2023 8:23pm take 0.5 tablet by m outh once [...] time only. ondansetron 4 mg oral tablet (5 sources) Serotonin-3 Receptor Antagonist Start: take 1 tablet by mouth every eight hours as needed for nausea ondansetron (ZOFRAN) 4 mg tablet TAKE 1 TABLET BY MOUTH EVERY 8 HOURS NEEDED FOR NAUSEA OR FOR VOMITING FOR UP TO 7 DAYS 0 07/10/2023 Active Comment on above: TAKE 1 TABLET BY SEDA TH EVERY 8 HOURS NEEDED FOR NAUSEA OR FOR VOMITING FOR UP TO 7 DAYS PEPTAMEN 1.5 0.068 gram- 1.5 kcal/mL (1 [...] Enteral Access: PEG with Jejunal Extension Potassium (4 sources) potassium (POTAS ELVER ORAL) Take by mouth. 0 Active potassium (POTAS ELVER ORAL) Take by mouth. 0 Suspended Comment on above: Take by mouth. potassium gluconate 2.5 meq oral tablet (6 sources) Start: 01-15-2023 End: 10-06-2023 take 99 mg by mouth once daily in the morning Potassium Gluconate Discontinued 99 MG PO Every morning January 14, 2023 11:00pm October 06, 2023 8:24pm sucralfate 1000 mg oral tablet (8 sources) Aluminum Complex Start: 11-29-2021 End: 01-15-2023 [...] capsule (20 sources) alpha-Adrenergic Keshawn Start: 10-23-2021 End: 10-06-2023 take 0.4 mg by mouth once daily in the morning Tamsulosin Discontinued 0.4 MG PO Every morning November 28, 2021 11:00pm October 06, 2023 8:24pm Comment on above: Take 0.4 mg by mouth one time only. technetium sestamibi (CARDIOLITE) injection 10 millicurie (1 source) Start: 11-07-2021 End: 11-07-2021 technetium sestamibi (CARDIOLITE) injection 10 millicurie technetium sestamibi (CARDIOLITE) injection 30 millicurie (1 source) Start: 11-07-2021 End: 11-07-2021 technetium sestamibi (CARDIOLITE) injection 30 millicurie Problems Active Problems Problem Classification Problem Date Documented Da te Episodic/Chronic Abdominal pain (9 sources) Unspecified abdominal pain; Translations: [Epigastric pain] Onset: 2 Resolved: 2 Episodic Acute and unspecified renal failure (8 sources) Acute renal failure syndrome; Translations: [Acute kidney failure, unspecified] Onset: 3 07-24-2023 Episodic Bacterial infection; unspecified site (3 sources) Bacteremia; Translations: [Bacteremia caused by Gram-negative bacteria] Onset: 4 10-08-2023 Episodic Cardiac dysrhythmias (1 source) Tachycardia, unspecified; Translations: [Tachycardia] Onset: 3 Episodic Complications of surgical procedures or medical care (4 sources) Complication of gastrostomy; Translations: [Gastrostomy infection] 10-06-2023 Episodic Diseases of white blood cells (5 sources) Leukocytosis; Translations: [Elevated white blood cell count, unspecified] Onset: 4 10-06-2023 Chronic Epilepsy; convulsions (3 sources) Seizure; Translations: [Unspecified convulsions] Onset: 3 08-16-2023 Episodic Esophageal disorders (11 sources) Gastroesophageal reflux disease; Translations: [Gastro-esophageal reflux disease without esophagitis] Onset: 2 Resolved: 2 Chronic Essential hypertension (5 sources) Hypertensive disorder; Translations: [Unspecified essential hypertension] Onset: 3 08-08-2023 Chronic Fluid and electrolyte disorders (17 sources) Dehydration; Translations: [Hypokalemia] Onset: 2 Episodic Gastritis and duodenitis (6 sources) Gastritis; Translations: [Gastritis, unspecified, without bleeding] Onset: 2 Resolved: 2 Episodic Hyperplasia of prostate (3 sources) Benign prostatic hyperplasia; Translations: [Benign prostatic hyperplasia without lower urinary tract symptoms] 07-25-2023 Chronic Malaise and fatigue (5 sources) Other fatigue; Translations: [Weakness] Onset: 3 08-15-2023 Episodic Malignant neoplasm without specification of site (1 source) Primary malignant neuroendocrine neoplasm of ileum; Translations: [Other malignant neuroendocrine tumors] 10-03-2023 Chronic Nonspecific chest pain (2 sources) Chest pain; Translations: [Chest pain, unspecified] Episodic Nutritional deficiencies (6 sources) Deficiency of macronutrients; Translations: [Unspecified severe protein-calorie malnutrition] Onset: 3 08-08-2023 Chronic Open wounds of head; neck; and trunk (1 source) Laceration without foreign body of nose, initial encounter Episodic Other aftercare (1 source) Encounter for removal of sutures Episodic Other aftercare (4 sources) Patient encounter status; Translations: [Encounter for therapeutic drug level monitoring] Onset: 3 08-08-2023 Episodic Other circulatory disease (1 source) Bruit; Translations: [Other specified symptoms and signs involving the circulatory and respiratory systems] Episodic Other circulatory disease (6 sources) Low blood pressure; Translations: [Hypotension, unspecified] 07-24-2023 Episodic Other circulatory disease (5 sources) Hypotension, unspecified; Translations: [Hypotension, unspecified] Onset: 3 07-24-2023 Episodic Other disorders of stomach and duodenum (4 sources) Mass of duodenum; Translations: [Other diseases of stomach and duodenum] 07-25-2023 Episodic Other disorders of stomach and duodenum (4 sources) Other diseases of stomach and duodenum; Translations: [Other specified disorders of stomach and duodenum] Onset: 3 07-26-2023 Episodic Other disorders of stomach and duodenum (5 sources) Pyloric obstruction; 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] Onset: 4 08-07-2023 Episodic Other disorders of stomach and duodenum (2 sources) Adult hypertrophic pyloric stenosis; Translations: [Gastric outlet obstruction] Onset: 4 Episodic Other gastrointestinal disorders (4 sources) Patient encounter status; Translations: [Encounter for attention to gastrostomy] Onset: 4 10-03-2023 Chronic Other gastrointestinal disorders (4 sources) Mass of digestive structure; Translations: [Other [...] nutritional; endocrine; and metabolic disorders (4 sources) Unintentional weight loss; Translations: [Abnormal weight loss] 07-24-2023 Episodic Other nutritional; endocrine; and metabolic disorders (4 sources) Abnormal weight loss; Translations: [Loss of weight] Onset: 3 07-24-2023 Episodic Other nutritional; endocrine; and metabolic disorders (5 sources) Adult failure to thrive syndrome; Translations: [Adult failure to thrive] Onset: 3 08-07-2023 Episodic Other nutritional; endocrine; and metabolic disorders (10 sources) Feeding problem; Translations: [Feeding difficulties] Onset: 3 08-08-2023 Episodic Other nutritional; endocrine; and metabolic disorders (1 source) Adult failure to thrive; Translations: [Failure to thrive in adult] Onset: 3 Episodic Pneumonia (except that caused by tuberculosis or sexually transmitted disease) (5 sources) Pneumonia, unspecified organism; Translations: [PNEUMONIA UNSPECIFIED ORGANISM] Onset: 2 Episodic Residual codes; unclassified (3 sources) Other specified health status; Translations: [Other specified conditions influencing health status] Onset: 4 10-06-2023 Episodic Septicemia (except in labor) (2 sources) Sepsis, unspecified organism; Translations: [Severe sepsis without septic shock] Onset: 4 Episodic Skin and subcutaneous tissue infections (1 source) Local infection of the skin and subcutaneous tissue, unspecified; Translations: [Local infection of the skin and subcutaneous tissue, unspecified] Onset: 4 Episodic Syncope (15 sources) Syncope and collapse; Translations: [Syncope] Onset: 2 Episodic Unclassified (1 source) Gastrostomy infection; Translations: [Gastrostomy infection] Onset: 4 Unclassified (1 source) Encounter for preprocedural laboratory [...] Test Name Value Interpretation Reference Range Facility Anisocytosis LM Ql (Bld)Orde red By: Kalina Moore on 10-10-2023 Anisocytosis Ql (Bld) Moderate [facility] Basophils Auto (Bld) [#/Vol] Ordered By: Kalina Moore on 10-10-2023 Basophils (Bld) [#/Vol] N/A [facility] Basophils/100 WBC Auto (Bld) Ordered By: Kalina Moore on 10-10-2023 Basophils/100 WBC (Bld) N/A [facility] Basophils/100 WBC Manual cnt (Bld)Ordered By: Kalina Moore on 10-10-2023 Basophils/100 WBC (Bld) 0 % 0-2 [facility] Calcium [Mass/volume] in Ser um or PlasmaOrdered By: Kalina Moore on 10-10-2023 Calcium [Mass/Vol] 7.7 mg/dL 8.6-10.3 [facility] Carbon dioxide, total [Moles /volume] in Serum or PlasmaOrdered By: Kalina Moore on 10-10-2023 CO2 [Moles/Vol] 25.2 mmol/L 21.0-31.0 [facility] Chloride [Moles/volume] in S sadi or PlasmaOrdered By: Kalina Moore on 10-10-2023 Chloride [Moles/Vol] 110 mmol/L 98-107 [facility] Creatinine [Mass/volume] in Serum or PlasmaOrdered By: Kalina Moore on 10-10-2023 Creatinine [Mass/Vol] 0.69 mg/dL 0.70-1.30 [facility] Eosinophils Auto (Bld) [#/Vo l]Ordered By: Kalina Moore on 10-10-2023 Eosinophils (Bld) [#/Vol] N/A [facility] Eosinophils/100 WBC Auto (Bl d)Ordered By: Kalina Moore on 10-10-2023 Eosinophils/100 WBC (Bld) N/A [facility] Eosinophils/100 WBC Manual c nt (Bld)Ordered By: Kalina Moore on 10-10-2023 Eosinophils/100 WBC (Bld) 5 % 1-3 [facility] Erythrocyte distribution wid th Auto (RBC) [Ratio]Ordered By: Kalina Valdez on 10-10-2023 Erythrocyte distribution width (RBC) [Ratio] 15.5 % 12.0-14.8 [facility] Glucose Glucometer (BldC) [M ass/Vol]Ordered By: Johnny Mendoza on 10-10-2023 Glucose [Mass/Vol] 96 mg/dL [facility] Comment on above: Random Glucose Refer ence Range is dependent on time and content of last meal. Glucose of more than 200 mg/dL in a nonstressed, ambulatory subject supports the diagnosis of Diabetes Mellitus. Glucose [Mass/volume] in Ser um or PlasmaOrdered By: Kalina Moore on 10-10-2023 Glucose [Mass/Vol] 89 mg/dL 70-100 [facility] Comment on above: ADA recommended refe rence rangeRandom Glucose Reference Range is dependent on time and content of last meal. Glucose of more than 200 mg/dL in a nonstressed, ambulatory subject supports the diagnosis of Diabetes Mellitus. Hematocrit Auto (Bld) [Volum e fraction]Ordered By: Kalina Moore on 10-10-2023 Hematocrit (Bld) [Volume fraction] 28.9 % 38.8-50.0 [facility] Hemoglobin [Mass/volume] in BloodOrdered By: Kalina Moore on 10-10-2023 Hemoglobin (Bld) [Mass/Vol] 9.4 g/dL 13.0-17.0 [facility] Leukocytes [#/volume] correc johnnie for nucleated erythrocytes in Blood by Automated counOrdered By: Kalina Moore on 10-10-2023 WBC corrected for nucl RBC Auto (Bld) [#/Vol] 6.3 10*3/uL 4.1-10.5 [facility] Lymphocytes Auto (Bld) [#/Vo l]Ordered By: Kalina Moore on 10-10-2023 Lymphocytes (Bld) [#/Vol] N/A [facility] Lymphocytes/100 WBC Auto (Bl d)Ordered By: Kalina Moore on 10-10-2023 Lymphocytes/100 WBC (Bld) N/A [facility] Lymphocytes/100 WBC Manual c nt (Bld)Ordered By: Kalina Moore on 10-10-2023 Lymphocytes/100 WBC (Bld) 5 % 18-42 [facility] MCH Auto (RBC) [Entitic mass ]Ordered By: Kalina Moore on 10-10-2023 MCH (RBC) [Entitic mass] 29.8 pg 27.5-35.2 [facility] MCHC Auto (RBC) [Mass/Vol]Or dered By: Kalina Moore on 10-10-2023 MCHC (RBC) [Mass/Vol] 32.6 g/dL 32.5-35.6 [facility] MCV Auto (RBC) [Entitic vol] Ordered By: Kalina Moore on 10-10-2023 MCV (RBC) [Entitic vol] 91.5 fL 83.5-101 [facility] Magnesium [Mass/volume] in S sadi or PlasmaOrdered By: Kalina Moore on 10-10-2023 Magnesium [Mass/Vol] 2.1 mg/dL 1.9-2.7 [facility] Metamyelocytes/100 WBC Manua l cnt (Bld)Ordered By: Kalina Moore on 10-10-2023 Metamyelocytes/100 WBC (Bld) 1 % 0-0 [facility] Monocytes Auto (Bld) [#/Vol] Ordered By: Kalina Moore on 10-10-2023 Monocytes (Bld) [#/Vol] N/A [facility] Monocytes/100 WBC Auto (Bld) Ordered By: Kalina Moore on 10-10-2023 Monocytes/100 WBC (Bld) N/A [facility] Monocytes/100 WBC Manual cnt (Bld)Ordered By: Kalina Moore on 10-10-2023 Monocytes/100 WBC (Bld) 9 % 2-11 [facility] Myelocytes/100 WBC Manual cn t (Bld)Ordered By: Kalina Moore on 10-10-2023 Myelocytes/100 WBC (Bld) 2 % 0-0 [facility] Neutrophils Auto (Bld) [#/Vo l]Ordered By: Kalina Moore on 10-10-2023 Neutrophils (Bld) [#/Vol] N/A [facility] Neutrophils/100 WBC Auto (Bl d)Ordered By: Kalina Moore on 10-10-2023 Neutrophils/100 WBC (Bld) N/A [facility] No Panel InformationOrdered By: Kalina Moore on 10-10-2023 Estimated GFR (CKD-EPI) > 60.0 mL/Min [facility] Creatinine Clearance (Chem 88.38 [facility] Nucleated erythrocytes [Pres ence] in Blood by Automated countOrdered By: Kalina Moore on 10-10-2023 Nucleated RBC Auto Ql (Bld) N/A [facility] Ovalocyte detectionOrdered B y: Kalina Moore on 10-10-2023 Ovalocytes LM Ql (Bld) Slight [facility] Phosphate [Mass/volume] in S sadi or PlasmaOrdered By: Kalina Moore on 10-10-2023 Phosphate [Mass/Vol] 2.7 mg/dL 2.5-4.5 [facility] Platelet adequacy [Presence] in Blood by Light microscopyOrdered By: Kalina Moore on 10-10-2023 Platelets LM Ql (Bld) Decreased Normal [facility] Platelet mean volume Auto (B ld) [Entitic vol]Ordered By: Kalina Moore on 10-10-2023 Platelet mean volume (Bld) [Entitic vol] 11.1 fL 6.6-10.1 [facility] Platelet morphology finding [Identifier] in BloodOrdered By: Kalina Valdez on 10-10-2023 Platelet morphology finding Nom (Bld) Normal Normal [facility] Platelets Auto (Bld) [#/Vol] Ordered By: Kalina Moore on 10-10-2023 Platelets (Bld) [#/Vol] 104 10*3/uL 150-450 [facility] Potassium [Moles/volume] in Serum or PlasmaOrdered By: Kalina Moore on 10-10-2023 Potassium [Moles/Vol] 3.7 mmol/L 3.5-5.1 [facility] RBC Auto (Bld) [#/Vol]Ordere d By: Kalina Moore on 10-10-2023 RBC (Bld) [#/Vol] 3.16 10*6/uL 3.90-5.60 [facility] RBC morphologyOrdered By: Gladis Moore on 10-10-2023 RBC morphology finding Nom (Bld) N/A [facility] Segmented neutrophils/100 WB C Manual cnt (Bld)Ordered By: Kalina Moore on 10-10-2023 Segmented neutrophils/100 WBC (Bld) 78 % 50-70 [facility] Serum or plasma anion gap de terminationOrdered By: Kalina Moore on 10-10-2023 Anion gap [Moles/Vol] 8.5 mmol/L 6.0-15.0 [facility] Sodium [Moles/volume] in Ser um or PlasmaOrdered By: Kalina Moore on 10-10-2023 Sodium [Moles/Vol] 140 mmol/L 136-145 [facility] Urea nitrogen [Mass/volume] in Serum or PlasmaOrdered By: Kalina Moore on 10-10-2023 Urea nitrogen [Mass/Vol] 12 mg/dL 7-25 [facility] WBC Auto (Bld) [#/Vol]Ordere d By: Kalina Moore on 10-10-2023 WBC (Bld) [#/Vol] 6.3 10*3/uL 4.1-10.5 [facility] Basic Metabolic Panelon 09-25 Anion gap [Moles/Vol] 10.4 mmol/L Normal 6.0-15.0 [facility] Comment on above: Order Comment: Comme nt in am x3 then every Friday and Comment in am x3 then every Friday and Performed By: #### C REAT, PP, LYTES, LIPID, CBC, BUN #### [facility] [address] Calcium [Mass/Vol] 7.3 mg/dL Low 8.6-10.3 [facility] Comment on above: Order Comment: Comme nt in am x3 then every Friday and Comment in am x3 then every Friday and Performed By: #### C REAT, PP, LYTES, LIPID, CBC, BUN #### [facility] [address] [place] [id number] [place] Chloride [Moles/Vol] 108 mmol/L High 98-107 [facility] Comment on above: Order Comment: Comme nt in am x3 then every Friday and Comment in am x3 then every Friday and Performed By: #### C REAT, PP, LYTES, LIPID, CBC, BUN #### [facility] [address] CO2 [Moles/Vol] 23.2 mmol/L Normal 21.0-31.0 [facility] Comment on above: Order Comment: Comme nt in am x3 then every Friday and Comment in am x3 then every Friday and Performed By: #### C REAT, PP, LYTES, LIPID, CBC, BUN #### [facility] [address] Creatinine [Mass/Vol] 0.79 mg/dL Normal 0.70-1.30 [facility] Comment on above: Order Comment: Comme nt in am x3 then every Friday and Comment in am x3 then every Friday and Performed By: #### C REAT, PP, LYTES, LIPID, CBC, BUN #### [facility] [address] Creatinine Clr Calc Pharmacy 88.38 [facility] Comment on above: Order Comment: Comme nt in am x3 then every Friday and Comment in am x3 then every Friday and Performed By: #### C REAT, PP, LYTES, LIPID, CBC, BUN #### [facility] [address] GFR/1.73 sq M.predicted MDRD (S/P/Bld) [Vol rate/Area] mL/min/{1.73_m2} [facility] Comment on above: Order Comment: Comme nt in am x3 then every Friday and Comment in am x3 then every Friday and Performed By: #### C REAT, PP, LYTES, LIPID, CBC, BUN #### [facility] [address] Glucose [Mass/Vol] 124 mg/dL High 70-100 [facility] Comment on above: Order Comment: Comme nt in am x3 then every Friday and Comment in am x3 then every Friday and Result Comment: [place] Glucose Reference Range is dependent on time and content of last meal. Glucose of more than 200 mg/dL in a nonstressed, ambulatory subject supports the diagnosis of Diabetes Mellitus. ADA recommended reference range Performed By: #### C REAT, PP, LYTES, LIPID, CBC, BUN #### [facility] [address] Potassium [Moles/Vol] 3.6 mmol/L Normal 3.5-5.1 [facility] Comment on above: Order Comment: Comme nt in am x3 then every Friday and Comment in am x3 then every Friday and Performed By: #### C REAT, PP, LYTES, LIPID, CBC, BUN #### [address] Sodium [Moles/Vol] 138 mmol/L Normal 136-145 [facility] Comment on above: Order Comment: Comme nt in am x3 then every Friday and Comment in am x3 then every Friday and Performed By: #### C REAT, PP, LYTES, LIPID, CBC, BUN #### [address] Urea nitrogen [Mass/Vol] 13 mg/dL Normal 7-25 [facility] Comment on above: Order Comment: Comme nt in am x3 then every Friday and Comment in am x3 then every Friday and Performed By: #### C REAT, PP, LYTES, LIPID, CBC, BUN #### [address] Complete Blood Count Auto Di ffon 10-09-2023 Basophils (Bld) [#/Vol] 0.0 10*3/uL Normal 0.0-0.2 [facility] Comment on above: Result Comment: PERF ORMED BY: [place] [id number] PATHOLOGIST KNIFE CUTTER RAHEL TREVINO M.D. Performed By: #### C REAT, PP, LYTES, LIPID, CBC, BUN #### [address] Basophils/100 WBC (Bld) 0.2 % Normal . [facility] Comment on above: Performed By: #### C REAT, PP, LYTES, LIPID, CBC, BUN #### [address] Eosinophils (Bld) [#/Vol] 0.1 10*3/uL Normal 0.0-0.45 [facility] Comment on above: Performed By: #### C REAT, PP, LYTES, LIPID, CBC, BUN #### [address] Eosinophils/100 WBC (Bld) 1.0 % Normal . [facility] Comment on above: Performed By: #### C REAT, PP, LYTES, LIPID, CBC, BUN #### [address] Erythrocyte distribution width (RBC) [Ratio] 14.7 % Normal 12.0-14.8 [facility] Comment on above: Performed By: #### C REAT, PP, LYTES, LIPID, CBC, BUN #### [address] Hematocrit (Bld) [Volume fraction] 30.0 % Low 38.8-50.0 [facility] Comment on above: Performed By: #### C REAT, PP, LYTES, LIPID, CBC, BUN #### [address] Hemoglobin (Bld) [Mass/Vol] 10.1 g/dL Low 13.0-17.0 [facility] Comment on above: Performed By: #### C REAT, PP, LYTES, LIPID, CBC, BUN #### [address] Lymphocytes (Bld) [#/Vol] 0.5 10*3/uL Low 1.00-4.8 [facility] Comment on above: Performed By: #### C REAT, PP, LYTES, LIPID, CBC, BUN #### [address] Lymphocytes/100 WBC (Bld) 4.8 % Normal . [facility] Comment on above: Performed By: #### C REAT, PP, LYTES, LIPID, CBC, BUN #### [address] MCH (RBC) [Entitic mass] 29.5 pg Normal 27.5-35.2 [facility] Comment on above: Performed By: #### C REAT, PP, LYTES, LIPID, CBC, BUN #### [address] MCV (RBC) [Entitic vol] 87.4 fL Normal 83.5-101 [facility] Comment on above: Performed By: #### C REAT, PP, LYTES, LIPID, CBC, BUN #### [address] Mean Corpuscular HGB Conc 33.7 g/dL Normal 32.5-35.6 [facility] Comment on above: Performed By: #### C REAT, PP, LYTES, LIPID, CBC, BUN #### [address] Monocytes (Bld) [#/Vol] 0.9 10*3/uL High 0.0-0.8 [facility] Comment on above: Performed By: #### C REAT, PP, LYTES, LIPID, CBC, BUN #### [address] Monocytes/100 WBC (Bld) 8.5 % Normal . [facility] Comment on above: Performed By: #### C REAT, PP, LYTES, LIPID, CBC, BUN #### [address] Neutrophils (Bld) [#/Vol] 8.8 10*3/uL High 1.8-7.7 [facility] Comment on above: Performed By: #### C REAT, PP, LYTES, LIPID, CBC, BUN #### [address] Neutrophils/100 WBC (Bld) 85.5 % Normal . [facility] Comment on above: Performed By: #### C REAT, PP, LYTES, LIPID, CBC, BUN #### [address] NRBC% 0.1 /100{WBC} Normal 0-0.5 [facility] Comment on above: Performed By: #### C REAT, PP, LYTES, LIPID, CBC, BUN #### [address] Platelet mean volume (Bld) [Entitic vol] 11.3 fL High 6.6-10.1 [facility] Comment on above: Performed By: #### C REAT, PP, LYTES, LIPID, CBC, BUN #### [address] Platelets (Bld) [#/Vol] 99 10*3/uL Low 150-450 [facility] Comment on above: Performed By: #### C REAT, PP, LYTES, LIPID, CBC, BUN #### [address] RBC (Bld) [#/Vol] 3.44 10*6/uL Low 3.90-5.60 [facility] Comment on above: Performed By: #### C REAT, PP, LYTES, LIPID, CBC, BUN #### [address] WBC (Bld) [#/Vol] 10.3 10*3/uL Normal 4.1-10.5 [facility] Comment on above: Performed By: #### C REAT, PP, LYTES, LIPID, CBC, BUN #### [address] [place] [address] [facility] Glucose Poct Glucometerson 0 10-09-2023 Glucose [Mass/Vol] 113 mg/dL Normal [facility] Comment on above: Result Comment: [place] Glucose Reference Range is dependent on time and content of last meal. Glucose of more than 200 mg/dL in a nonstressed, ambulatory subject supports the diagnosis of Diabetes Mellitus. PERFORMED BY: [place] [address] PATHOLOGIST KNIFE CUTTER RAHEL TREVINO M.D. Performed By: #### U A #### [address] Glucose [Mass/Vol] 121 mg/dL Normal [facility] Comment on above: Result Comment: [facility] Glucose Reference Range is dependent on time and content of last meal. Glucose of more than 200 mg/dL in a nonstressed, ambulatory subject supports the diagnosis of Diabetes Mellitus. PERFORMED BY: [place] [address] PATHOLOGIST KNIFE CUTTER RAHEL TREVINO M.D. Performed By: #### O B(GUAIAC) #### [address] Glucose [Mass/Vol] 124 mg/dL Normal [facility] Comment on above: Result Comment: [facility] Glucose Reference Range is dependent on time and content of last meal. Glucose of more than 200 mg/dL in a nonstressed, ambulatory subject supports the diagnosis of Diabetes Mellitus. PERFORMED BY: [place] [address] PATHOLOGIST KNIFE CUTTER RAHEL TREVINO M.D. Performed By: #### G LULS #### Point of Care testing , Magnesiumon 10-09-2023 Magnesium [Mass/Vol] 2.1 mg/dL Normal 1.9-2.7 [facility] Comment on above: Order Comment: Comme nt in am x3 then every Friday and Comment in am x3 then every Friday and Result Comment: PERF ORMED BY: [address] [place] [address] PATHOLOGIST KNIFE CUTTER RAHEL TREVINO M.D. Performed By: #### C REAT, PP, LYTES, LIPID, CBC, BUN #### [facility] [address] Phosphoruson 10-09-2023 Phosphate [Mass/Vol] 2.8 mg/dL Normal 2.5-4.5 [facility] Comment on above: Order Comment: Comme nt in am x3 then every Friday and Comment in am x3 then every Friday and Performed By: #### C REAT, PP, LYTES, LIPID, CBC, BUN #### [address] Basic Metabolic Panelon 09-25 Anion gap [Moles/Vol] 10.7 mmol/L Normal 6.0-15.0 [facility] Comment on above: Order Comment: Comme nt in am x3 then every Friday and Comment in am x3 then every Friday and Comment in am then every Friday Performed By: #### C REAT, PP, LYTES, LIPID, CBC, BUN #### [address] Calcium [Mass/Vol] 7.3 mg/dL Low 8.6-10.3 [facility] Comment on above: Order Comment: Comme nt in am x3 then every Friday and Comment in am x3 then every Friday and Comment in am then every Friday Performed By: #### C REAT, PP, LYTES, LIPID, CBC, BUN #### [address] Chloride [Moles/Vol] 107 mmol/L Normal 98-107 [facility] Comment on above: Order Comment: Comme nt in am x3 then every Friday and Comment in am x3 then every Friday and Comment in am then every Friday Performed By: #### C REAT, PP, LYTES, LIPID, CBC, BUN #### [facility] [address] CO2 [Moles/Vol] 22.2 mmol/L Normal 21.0-31.0 [facility] Comment on above: Order Comment: Comme nt in am x3 then every Friday and Comment in am x3 then every Friday and Comment in am then every Friday Performed By: #### C REAT, PP, LYTES, LIPID, CBC, BUN #### [facility] [address] Creatinine [Mass/Vol] 0.94 mg/dL Normal 0.70-1.30 [facility] Comment on above: Order Comment: Comme nt in am x3 then every Friday and Comment in am x3 then every Friday and Comment in am then every Friday Performed By: #### C REAT, PP, LYTES, LIPID, CBC, BUN #### [facility] [address] Creatinine Clr Calc Pharmacy 75.21 [facility] Comment on above: Order Comment: Comme nt in am x3 then every Friday and Comment in am x3 then every Friday and Comment in am then every Friday Performed By: #### C REAT, PP, LYTES, LIPID, CBC, BUN #### [facility] [address] GFR/1.73 sq M.predicted MDRD (S/P/Bld) [Vol rate/Area] mL/min/{1.73_m2} [facility] Comment on above: Order Comment: Comme nt in am x3 then every Friday and Comment in am x3 then every Friday and Comment in am then every Friday Performed By: #### C REAT, PP, LYTES, LIPID, CBC, BUN #### [facility] [address] Glucose [Mass/Vol] 165 mg/dL High 70-100 [facility] Comment on above: Order Comment: Comme nt in am x3 then every Friday and Comment in am x3 then every Friday and Comment in am then every Friday Result Comment: [place] Glucose Reference Range is dependent on time and content of last meal. Glucose of more than 200 mg/dL in a nonstressed, ambulatory subject supports the diagnosis of Diabetes Mellitus. ADA recommended reference range Performed By: #### C REAT, PP, LYTES, LIPID, CBC, BUN #### [facility] [address] Potassium [Moles/Vol] 3.9 mmol/L Normal 3.5-5.1 [facility] Comment on above: Order Comment: Comme nt in am x3 then every Friday and Comment in am x3 then every Friday and Comment in am then every Friday Performed By: #### C REAT, PP, LYTES, LIPID, CBC, BUN #### [facility] [address] Sodium [Moles/Vol] 136 mmol/L Normal 136-145 [facility] Comment on above: Order Comment: Comme nt in am x3 then every Friday and Comment in am x3 then every Friday and Comment in am then every Friday Performed By: #### C REAT, PP, LYTES, LIPID, CBC, BUN #### [facility] [address] Urea nitrogen [Mass/Vol] 20 mg/dL Normal 7-25 [facility] Comment on above: Order Comment: Comme nt in am x3 then every Friday and Comment in am x3 then every Friday and Comment in am then every Friday Performed By: #### C REAT, PP, LYTES, LIPID, CBC, BUN #### [address] Blood Cultureon 10-08-2023 Bacteria identified Cx Nom (Bld) No Growth 1 Day PERFORMED BY: [place] [address] PATHOLOGIST KNIFE CUTTER RAHEL TREVINO M.D. Normal [facility] Comment on above: Performed By: #### G PETER #### Point of Care testing , Bacteria identified Cx Nom (Bld) No Growth 1 Day PERFORMED BY: [place] [address] PATHOLOGIST KNIFE CUTTER RAHEL TREVINO M.D. Normal [facility] Comment on above: Performed By: #### G LULS #### Point of Care testing , Complete Blood Count Auto Di ffon 10-08-2023 Basophils (Bld) [#/Vol] 0.1 10*3/uL Normal 0.0-0.2 [facility] Comment on above: Result Comment: PERF ORMED BY: [place] [address] PATHOLOGIST KNIFE CUTTER RAHEL TREVINO M.D. Performed By: #### C REAT, PP, LYTES, LIPID, CBC, BUN #### [address] Basophils/100 WBC (Bld) 0.6 % Normal . [facility] Comment on above: Performed By: #### C REAT, PP, LYTES, LIPID, CBC, BUN #### [address] Eosinophils (Bld) [#/Vol] 0.2 10*3/uL Normal 0.0-0.45 [facility] Comment on above: Performed By: #### C REAT, PP, LYTES, LIPID, CBC, BUN #### [address] Eosinophils/100 WBC (Bld) 2.2 % Normal . [facility] Comment on above: Performed By: #### C REAT, PP, LYTES, LIPID, CBC, BUN #### [address] Erythrocyte distribution width (RBC) [Ratio] 14.6 % Normal 12.0-14.8 [facility] Comment on above: Performed By: #### C REAT, PP, LYTES, LIPID, CBC, BUN #### [address] Hematocrit (Bld) [Volume fraction] 30.0 % Low 38.8-50.0 [facility] Comment on above: Performed By: #### C REAT, PP, LYTES, LIPID, CBC, BUN #### [address] Hemoglobin (Bld) [Mass/Vol] 10.3 g/dL Low 13.0-17.0 [facility] Comment on above: Performed By: #### C REAT, PP, LYTES, LIPID, CBC, BUN #### [address] Lymphocytes (Bld) [#/Vol] 0.5 10*3/uL Low 1.00-4.8 [facility] Comment on above: Performed By: #### C REAT, PP, LYTES, LIPID, CBC, BUN #### [address] Lymphocytes/100 WBC (Bld) 5.5 % Normal . [facility] Comment on above: Performed By: #### C REAT, PP, LYTES, LIPID, CBC, BUN #### [address] MCH (RBC) [Entitic mass] 29.6 pg Normal 27.5-35.2 [facility] Comment on above: Performed By: #### C REAT, PP, LYTES, LIPID, CBC, BUN #### [address] MCV (RBC) [Entitic vol] 86.4 fL Normal 83.5-101 [facility] Comment on above: Performed By: #### C REAT, PP, LYTES, LIPID, CBC, BUN #### [address] Mean Corpuscular HGB Conc 34.3 g/dL Normal 32.5-35.6 [facility] Comment on above: Performed By: #### C REAT, PP, LYTES, LIPID, CBC, BUN #### [facility] [address] Monocytes (Bld) [#/Vol] 1.0 10*3/uL High 0.0-0.8 [facility] Comment on above: Performed By: #### C REAT, PP, LYTES, LIPID, CBC, BUN #### [address] Monocytes/100 WBC (Bld) 11.7 % Normal . [facility] Comment on above: Performed By: #### C REAT, PP, LYTES, LIPID, CBC, BUN #### [address] Neutrophils (Bld) [#/Vol] 6.6 10*3/uL Normal 1.8-7.7 [facility] Comment on above: Performed By: #### C REAT, PP, LYTES, LIPID, CBC, BUN #### [address] Neutrophils/100 WBC (Bld) 80.0 % Normal . [facility] Comment on above: Performed By: #### C REAT, PP, LYTES, LIPID, CBC, BUN #### [address] NRBC% 0.1 /100{WBC} Normal 0-0.5 [facility] Comment on above: Performed By: #### C REAT, PP, LYTES, LIPID, CBC, BUN #### [address] Platelet mean volume (Bld) [Entitic vol] 10.9 fL High 6.6-10.1 [facility] Comment on above: Performed By: #### C REAT, PP, LYTES, LIPID, CBC, BUN #### [address] Platelets (Bld) [#/Vol] 117 10*3/uL Low 150-450 [facility] Comment on above: Performed By: #### C REAT, PP, LYTES, LIPID, CBC, BUN #### [facility] [address] RBC (Bld) [#/Vol] 3.47 10*6/uL Low 3.90-5.60 [facility] Comment on above: Performed By: #### C REAT, PP, LYTES, LIPID, CBC, BUN #### [facility] [address] WBC (Bld) [#/Vol] 8.3 10*3/uL Normal 4.1-10.5 [facility] Comment on above: Performed By: #### C REAT, PP, LYTES, LIPID, CBC, BUN #### [facility] [address] Glucose Poct Glucometerson 0 10-08-2023 Commemt1 Glu2: Cleaned Meter Normal [facility] Comment on above: Result Comment: PERF ORMED BY: [place] [address] PATHOLOGIST KNIFE CUTTER RAHEL TREVINO M.D. Performed By: #### C REAT, PP, LYTES, LIPID, CBC, BUN #### [address] Glucose [Mass/Vol] 100 mg/dL Normal [facility] Comment on above: Result Comment: [place] Glucose Reference Range is dependent on time and content of last meal. Glucose of more than 200 mg/dL in a nonstressed, ambulatory subject supports the diagnosis of Diabetes Mellitus. Performed By: #### C REAT, PP, LYTES, LIPID, CBC, BUN #### [address] Glucose [Mass/Vol] 141 mg/dL Normal [facility] Comment on above: Result Comment: [place] om Glucose Reference Range is dependent on time and content of last meal. Glucose of more than 200 mg/dL in a nonstressed, ambulatory subject supports the diagnosis of Diabetes Mellitus. PERFORMED BY: [place] [address] PATHOLOGIST KNIFE CUTTER RAHEL TREVINO M.D. Performed By: #### G PETER #### Point of Care testing , Glucose [Mass/Vol] 166 mg/dL Normal [facility] Comment on above: Result Comment: [facility] Glucose Reference Range is dependent on time and content of last meal. Glucose of more than 200 mg/dL in a nonstressed, ambulatory subject supports the diagnosis of Diabetes Mellitus. PERFORMED BY: [place] [address] PATHOLOGIST KNIFE CUTTER RAHEL TREVINO M.D. Performed By: #### C REAT, PP, LYTES, LIPID, CBC, BUN #### [facility] [address] Magnesiumon 10-08-2023 Magnesium [Mass/Vol] 2.1 mg/dL Normal 1.9-2.7 [facility] Comment on above: Order Comment: Comme nt in am x3 then every Friday and Comment in am x3 then every Friday and Comment in am then every Friday Performed By: #### C REAT, PP, LYTES, LIPID, CBC, BUN #### [facility] [address] No Panel InformationOrdered By: Cali Patterson on 10-08-2023 Bedside Glucose Comment Glu2: cleaned meter [facility] Phosphoruson 10-08-2023 Phosphate [Mass/Vol] 3.3 mg/dL Normal 2.5-4.5 [facility] Comment on above: Order Comment: Comme nt in am x3 then every Friday and Comment in am x3 then every Friday and Comment in am then every Friday Performed By: #### C REAT, PP, LYTES, LIPID, CBC, BUN #### [facility] [address] Prealbuminon 10-08-2023 Prealbumin [Mass/Vol] 7.0 mg/dL Low 17.0-34.0 [facility] Comment on above: Order Comment: Comme nt in am x3 then every Friday and Comment in am x3 then every Friday and Comment in am then every Friday Performed By: #### C REAT, PP, LYTES, LIPID, CBC, BUN #### [address] Prealbumin [Mass/volume] in Serum or PlasmaOrdered By: Kalina Moore on 10-08-2023 Prealbumin [Mass/Vol] 7.0 mg/dL 17.0-34.0 [facility] Triglyceride [Mass/volume] i n Serum or PlasmaOrdered By: Kalina Moore on 10-08-2023 Triglyceride [Mass/Vol] 100 mg/dL 35-149 [facility] Comment on above: TRIG ATP III CLASSIF ICATIONTRIG less than 150 mg/dL NormalTRIG 150-199 mg/dL Borderline highTRIG 200-500 mg/dL High TRIG greater than 500 mg/dL Very highStandard traceable to the Center for Disease Conrtrol and Prevention (CDC) test method. Triglycerideson 10-08-2023 Triglyceride [Mass/Vol] 100 mg/dL Normal 35-149 [facility] Comment on above: Order Comment: Comme nt in am x3 then every Friday and Comment in am x3 then every Friday and Comment in am then every Friday Result Comment: TRIG ATP III CLASSIFICATION TRIG less than 150 mg/dL Normal TRIG 150-199 mg/dL Borderline high TRIG 200-500 mg/dL High TRIG greater than 500 mg/dL Very high Standard traceable to the Center for Disease Conrtrol and Prevention (CDC) test method. PERFORMED BY: [place] [address] PATHOLOGIST KNIFE CUTTER RAHEL TREVINO M.D. Performed By: #### C REAT, PP, LYTES, LIPID, CBC, BUN #### [facility] [address] [place] [address] Basic Metabolic Panelon 09-25 Anion gap [Moles/Vol] 12.4 mmol/L Normal 6.0-15.0 [facility] Comment on above: Performed By: #### G LULS #### Point of Care testing , Calcium [Mass/Vol] 7.7 mg/dL Low 8.6-10.3 [facility] Comment on above: Performed By: #### G VERNELLLS #### Point of Care testing , Chloride [Moles/Vol] 103 mmol/L Normal 98-107 [facility] Comment on above: Performed By: #### G LULS #### Point of Care testing , CO2 [Moles/Vol] 25.8 mmol/L Normal 21.0-31.0 [facility] Comment on above: Performed By: #### G LULS #### Point of Care testing , Creatinine [Mass/Vol] 1.05 mg/dL Normal 0.70-1.30 [facility] Comment on above: Performed By: #### G VERNELLLS #### Point of Care testing , Creatinine Clr Calc Pharmacy 67.33 [facility] Comment on above: Performed By: #### G VERNELLLS #### Point of Care testing , GFR/1.73 sq M.predicted MDRD (S/P/Bld) [Vol rate/Area] mL/min/{1.73_m2} [facility] Comment on above: Performed By: #### G VERNELLLS #### Point of Care testing , Glucose [Mass/Vol] 73 mg/dL Normal 70-100 [facility] Comment on above: Result Comment: [place] Glucose Reference Range is dependent on time and content of last meal. Glucose of more than 200 mg/dL in a nonstressed, ambulatory subject supports the diagnosis of Diabetes Mellitus. ADA recommended reference range Performed By: #### G LULS #### Point of Care testing , Potassium [Moles/Vol] 3.2 mmol/L Low 3.5-5.1 [facility] Comment on above: Performed By: #### G LULS #### Point of Care testing , Sodium [Moles/Vol] 138 mmol/L Normal 136-145 [facility] Comment on above: Performed By: #### G LULS #### Point of Care testing , Urea nitrogen [Mass/Vol] 29 mg/dL High 7-25 [facility] Comment on above: Performed By: #### G LULS #### Point of Care testing , Complete Blood Count Auto Di ffon 10-07-2023 Basophils (Bld) [#/Vol] 0.0 10*3/uL Normal 0.0-0.2 [facility] Comment on above: Result Comment: PERF ORMED BY: [facility] [place] [address] PATHOLOGIST KNIFE CUTTER RAHEL TREVINO M.D. Performed By: #### G LULS #### Point of Care testing , Basophils/100 WBC (Bld) 0.1 % Normal . [facility] Comment on above: Performed By: #### G LULS #### Point of Care testing , Eosinophils (Bld) [#/Vol] 0.0 10*3/uL Normal 0.0-0.45 [facility] Comment on above: Performed By: #### G VERNELLLS #### Point of Care testing , Eosinophils/100 WBC (Bld) 0.1 % Normal . [facility] Comment on above: Performed By: #### G VERNELLLS #### Point of Care testing , Erythrocyte distribution width (RBC) [Ratio] 14.5 % Normal 12.0-14.8 [facility] Comment on above: Performed By: #### G VERNELLLS #### Point of Care testing , Hematocrit (Bld) [Volume fraction] 27.8 % Low 38.8-50.0 [facility] Comment on above: Performed By: #### G LULS #### Point of Care testing , Hemoglobin (Bld) [Mass/Vol] 9.4 g/dL Low 13.0-17.0 [facility] Comment on above: Performed By: #### G VERNELLLS #### Point of Care testing , Lymphocytes (Bld) [#/Vol] 0.3 10*3/uL Low 1.00-4.8 [facility] Comment on above: Performed By: #### G LULS #### Point of Care testing , Lymphocytes/100 WBC (Bld) 1.7 % Normal . [facility] Comment on above: Performed By: #### G VERNELLLS #### Point of Care testing , MCH (RBC) [Entitic mass] 29.2 pg Normal 27.5-35.2 [facility] Comment on above: Performed By: #### G VERNELLLS #### Point of Care testing , MCV (RBC) [Entitic vol] 86.2 fL Normal 83.5-101 [facility] Comment on above: Performed By: #### G LULS #### Point of Care testing , Mean Corpuscular HGB Conc 33.9 g/dL Normal 32.5-35.6 [facility] Comment on above: Performed By: #### G VERNELLLS #### Point of Care testing , Monocytes (Bld) [#/Vol] 0.5 10*3/uL Normal 0.0-0.8 [facility] Comment on above: Performed By: #### G VERNELLLS #### Point of Care testing , Monocytes/100 WBC (Bld) 3.5 % Normal . [facility] Comment on above: Performed By: #### G VERNELLLS #### Point of Care testing , Neutrophils (Bld) [#/Vol] 14.5 10*3/uL High 1.8-7.7 [facility] Comment on above: Performed By: #### G VERNELLLS #### Point of Care testing , Neutrophils/100 WBC (Bld) 94.6 % Normal . [facility] Comment on above: Performed By: #### G VERNELLLS #### Point of Care testing , NRBC% 0.1 /100{WBC} Normal 0-0.5 [facility] Comment on above: Performed By: #### G VERNELLLS #### Point of Care testing , Platelet mean volume (Bld) [Entitic vol] 10.4 fL High 6.6-10.1 [facility] Comment on above: Performed By: #### G VERNELLLS #### Point of Care testing , Platelets (Bld) [#/Vol] 125 10*3/uL Signific ant change down 150-450 [facility] Comment on above: Performed By: #### G VERNELLLS #### Point of Care testing , RBC (Bld) [#/Vol] 3.22 10*6/uL Low 3.90-5.60 [facility] Comment on above: Performed By: #### G PETER #### Point of Care testing , WBC (Bld) [#/Vol] 15.3 10*3/uL High 4.1-10.5 [facility] Comment on above: Performed By: #### G PETER #### Point of Care testing , Fecal occult blood detection by immunochemistryOrdered By: Kalina Moore on 10-07-2023 Hemoglobin.gastrointest inal Ql (Stl) [facility] Magnesiumon 10-07-2023 Magnesium [Mass/Vol] 1.9 mg/dL Normal 1.9-2.7 [facility] Comment on above: Result Comment: PERF ORMED BY: [place] [address] PATHOLOGIST KNIFE CUTTER RAHEL TREVINO M.D. Performed By: #### G PETER #### Point of Care testing , Stool Occult Blood (Guaiac)o n 10-07-2023 Stool Occult Blood (Guaiac) Occult Blood Negative for Occult Blood by Guaiac Methodology ------ Reference range = Negative PERFORMED BY: [place] [address] PATHOLOGIST KNIFE CUTTER RAHEL TREVINO M.D. Normal [facility] Comment on above: Performed By: #### O B(GUAIAC) #### [address] Superficial Wound Cultureon 10-07-2023 Superficial Wound Culture Comment G tube site ORGANISM: Escherichia coli (O:ESCCOL) Quantity of Growth Light Growth ORGANISM: Klebsiella pneumoniae (O:KLEPNE) Quantity of Growth Light Growth Aerobic ELLY Charge (NMIC56) - SUSCEPTIBILITY ORGANISM: O:ESCCOL ANTIBIOTIC INTERPRETATION ELLY Amikacin S <16 Amoxacillin/K Clavulanate S <8 Ampicillin S <8 Ampicillin/Sulbactam S <4 Aztreonam S <4 Cefazolin S <2 Cefepime S <2 Ceftazidime S <1 Ceftazidime/Avibactam S <4 Ceftolozane/Tazobactam S <2 Ceftriaxone S <1 Cefuroxime S <4 Ciprofloxacin S <0.25 Ertapenem S <0.5 Gentamicin S <2 Levofloxacin S <0.5 Meropenem S <1 Meropenem/Vaborbactam S <2 Piperacillin/Tazobactam S <8 Tetracycline S <4 Tigecycline S <2 Tobramycin S <2 Trimethoprim/Sulfamethox azole S <0.5 Aerobic ELLY Charge (NMIC56) - SUSCEPTIBILITY ORGANISM: O:KLEPNE ANTIBIOTIC INTERPRETATION ELLY Amikacin S <16 Amoxacillin/K Clavulanate S <8 Ampicillin/Sulbactam S <4 Aztreonam S <4 Cefazolin S <2 Cefepime S <2 Ceftazidime S <1 Ceftazidime/Avibactam S <4 Ceftolozane/Tazobactam S <2 Ceftriaxone S <1 Cefuroxime S <4 Ciprofloxacin S <0.25 Ertapenem S <0.5 Gentamicin S <2 Levofloxacin S <0.5 Meropenem S <1 Meropenem/Vaborbactam S <2 Piperacillin/Tazobactam S <8 Tetracycline S <4 Tigecycline S <2 Tobramycin S <2 Trimethoprim/Sulfamethox azole S <0.5 S = SUSCEPTIBLE I = INTERMEDIATE R = RESISTANT BLANK = DATA NOT AVAILABLE, OR DRUG NOT ADVISABLE OR TESTED R* = RESISTANCE DUE TO EXTENDED SPECTRUM BETA-LACTAMASES ESBL = EXTENDED SPECTRUM BETA-LACTAMASE TFG = THYMIDINE-DEPENDENT STRAIN BETZAIDA = BETA-LACTAMASE POSITIVE IB = INDUCIBLE BETA-LACTAMASE. APPEARS IN PLACE OF 'S' WITH SPECIES KNOWN TO POSSESS INDUCIBLE BETA-LACTAMASES. POTENTIALLY THEY MAY BECOME RESISTANT TO ALL B-LACTAM DRUGS. PERFORMED BY: [place] [id number] PATHOLOGIST KNIFE CUTTER RAHEL TREVINO M.D. [facility] Comment on above: Performed By: #### O B(GUAIAC) #### [place] [id number] [facility] Activated partial thrombopla stin time (aPTT) in platelet poor plasma by coagulation aOrdered By: Joseluis Mejia on 10-06-2023 aPTT Coag (PPP) [Time] 31.8 s 25.1-36.5 [facility] Comment on above: A hematocrit value g reater than 55% may lead to inaccurate results in coagulation testing. Patients having hematocrit values >55% require a special collection tube for coagulation studies. Please contact the laboratory at [phone] for redraw instructions. Alanine aminotransferase [En zymatic activity/volume] in Serum or PlasmaOrdered By: Joseluis Mejia on 10-06-2023 ALT [Catalytic activity/Vol] 16 U/L 7-52 [facility] Albumin [Mass/volume] in Ser um or Plasma by Bromocresol green (BCG) dye binding methoOrdered By: Joseluis Mejia on 10-06-2023 Albumin BCG dye [Mass/Vol] 3.1 g/dL 3.5-5.7 [facility] Alkaline phosphatase [Enzyma tic activity/volume] in Serum or PlasmaOrdered By: Joseluis Mejia on 10-06-2023 ALP [Catalytic activity/Vol] 139 U/L 34-104 [facility] Aspartate aminotransferase [ Enzymatic activity/volume] in Serum or PlasmaOrdered By: Joseluis Mejia on 10-06-2023 AST [Catalytic activity/Vol] 23 U/L 13-39 [facility] B-Type Natriuretic Peptideon 10-06-2023 Natriuretic peptide B (Bld) [Mass/Vol] 436.0 pg/mL High 5-100 [facility] Comment on above: Result Comment: PERF ORMED BY: [place] [address] PATHOLOGIST KNIFE CUTTER RAHEL TREVINO M.D. Performed By: #### O B(GUAIAC) #### [facility] [address] [place], [place] [id number] [facility] Bacteria identified Aer cx N om (Unsp spec)Ordered By: Cali Patterson on 10-06-2023 Superficial Wound Culture Klebsiella pneumoniae [facility] Band form neutrophils/100 WB C Manual cnt (Bld)Ordered By: Joseluis Mejia on 10-06-2023 Band form neutrophils/100 WBC (Bld) 14 % 0-5 [facility] Basophils Auto (Bld) [#/Vol] Ordered By: Joseluis Mejia on 10-06-2023 Basophils (Bld) [#/Vol] N/A [facility] Basophils/100 WBC Auto (Bld) Ordered By: Joseluis Mejia on 10-06-2023 Basophils/100 WBC (Bld) N/A [facility] Bilirubin Test strip Ql (U)O rdered By: Joseluis Mejia on 10-06-2023 Bilirubin Ql (U) 1+ Negative [facility] Bilirubin.total [Mass/volume ] in Serum or PlasmaOrdered By: Joseluis Mejia on 10-06-2023 Bilirubin [Mass/Vol] 0.9 mg/dL 0.3-1.0 [facility] Blood Cultureon 10-06-2023 Bacteria identified Cx Nom (Bld) No Growth 2 Days PERFORMED BY: [place] [address] PATHOLOGIST KNIFE CUTTER RAHEL TREVINO M.D. Normal [facility] Comment on above: Performed By: #### C REAT, PP, LYTES, LIPID, CBC, BUN #### [facility] [address] [place] [id number] [facility] Bacteria identified Cx Nom (Bld) Gram stain results called at 1648 on 10/07/23 [employer] [facility] Panel results called at 1648 on 10/07/23 Gram Stain Gram Negative Bacilli ORGANISM: Enterobacter cloacae complex (O:ENTCLOCPLX) Aerobic ELLY Charge (NMIC56) - SUSCEPTIBILITY ORGANISM: O:ENTCLOCPLX ANTIBIOTIC INTERPRETATION ELLY Amikacin S <16 Aztreonam IB <4 Cefepime S <2 Ceftazidime IB <1 Ceftriaxone IB <1 Cefuroxime IB <4 Ciprofloxacin S <0.25 Ertapenem S <0.5 Gentamicin S <2 Levofloxacin S <0.5 Meropenem S <1 Meropenem/Vaborbactam S <2 Piperacillin/Tazobactam IB <8 Tetracycline S <4 Tobramycin S <2 Trimethoprim/Sulfamethox azole S <0.5 Gram stain results called at 1648 on 10/07/23 [employer] [facility] Panel results called at 1648 on 10/07/23 Staphylococcus aureus DNA [Presence] by VERITO with non-probe detection in Positive blood culture Not detected Bacteroides fragilis DNA [Presence] by VERITO with non-probe detection in Positive blood culture Not detected Blessing auris DNA [Presence] by VERITO with non-probe detection in Positive blood culture Not detected Blessing albicans DNA [Presence] by VERITO with non-probe detection in Positive blood culture Not detected Acinetobacter calcoaceticus-baumannii complex DNA [Presence] by VERITO with non-probe detection in Positive blood culture Not detected Cryptococcus neoformans or gattii 9002 Not detected Cephalosporin resistance blaCTX-M gene [Presence] by Molecular method Not detected Escherichia coli Not detected Enterobacterales DNA [Presence] by VERITO with non-probe detection in Positive blood culture Detected Enterobacter cloacae complex DNA [Presence] by VERITO with non-probe detection in Positive blood culture Not detected Staphylococcus epidermidis DNA [Presence] by VERITO with non-probe detection in Positive blood culture Not detected Enterococcus faecalis DNA [Presence] by VERITO with non-probe detection in Positive blood culture Not detected Enterococcus faecium DNA [Presence] by VERITO with non-probe detection in Positive blood culture Not detected Blessing glabrata DNA [Presence] by VERITO with non-probe detection in Positive blood culture Not detected Haemophilus influenzae (reported as H flu) Not detected Carbapenem resistance blaIMP gene [Presence] by Molecular method Not detected Klebsiella aerogenes DNA [Presence] by VERITO with non-probe detection in Positive blood culture Not detected Klebsiella pneumoniae+Klebsiella variicola+Klebsiella quasipneumoniae DNA [Presence] by VERITO with non-probe detection in Positive blood culture Not detected Klebsiella oxytoca DNA [Presence] by VERITO with non-probe detection in Positive blood culture Not detected Carbapenem resistance blaKPC gene [Presence] by Molecular method Not detected Blessing krusei DNA [Presence] by VERITO with non-probe detection in Positive blood culture Not detected Listeria monocytogenes (reported as listeriosis) Not detected Staphylococcus lugdunensis DNA [Presence] by VERITO with non-probe detection in Positive blood culture Not detected Methicillin resistance mecA+mecC genes+SCCmec+OrfX junction [Presence] by Molecular method Not Applicable Carbapenem resistance blaNDM gene [Presence] by Molecular method Not detected Neisseria meningitidis - reported as meningococcal disease Not detected Carbapenem resistance johnnie OXA-48-like gene [Presence] by Molecular method Not detected Blessing parapsilosis DNA [Presence] by VERITO with non-probe detection in Positive blood culture Not detected Streptococcus pneumoniae - reported at ISP Not detected Proteus sp DNA [Presence] by VERITO with non-probe detection in Positive blood culture Not detected Pseudomonas aeruginosa DNA [Presence] by VERITO with non-probe detection in Positive blood culture Not detected Salmonella sp DNA [Presence] by VERITO with non-probe detection in Positive blood culture Not detected Serratia marcescens DNA [Presence] by VERITO with non-probe detection in Positive blood culture Not detected Staphylococcus sp DNA [Presence] by VERITO with non-probe detection in Positive blood culture Not detected Stenotrophomonas maltophilia DNA [Presence] by VERITO with non-probe detection in Positive blood culture Not detected Group A (Streptococcus pyogenes) [id number] Not detected Group B Strep (Streptococcus agalactiae) Not detected Streptococcus sp DNA [Presence] by VERITO with non-probe detection in Positive blood culture Not detected Blessing tropicalis DNA [Presence] by VERITO with non-probe detection in Positive blood culture Not detected Vancomycin resistance Daria + vanB genes [Presence] by Molecular method Not Applicable Carbapenem resistance blaVIM gene [Presence] by Molecular method Not detected Colistin resistance mcr-1 gene [Presence] by Molecular method Not Applicable Methicillin resistance mecA+mecC genes [Presence] in Isolate or Specimen by Molecular genetics method No (more content not included)... [facility] Comment on above: Performed By: #### C REAT, PP, LYTES, LIPID, CBC, BUN #### [facility] [address] [place] [id number] [facility] Judy 10-06-2023 CNPN Telephone ([employer]) -------- WILYAISHA GOLDBERG ([id number]) 1955 M Date Time Provider Department 10/06/23 [facility] During your visit today, we recorded the following information about you: Jessie Zamora RN 10/06/2023 12:04 PM Signed Updated short term disability paperwork was updated and faxed on 10/06/23. Faxed to [facility] and to [facility]. Allergies As of Date: 10/06/2023 (No Known Allergies) Date Reviewed: 10/02/2023 Reviewed by: Sally Haywood Ma - Fully Assessed Prescriptions as of 10/06/2023 - potassium (POTASSIMIN ORAL) Take by mouth. [...] 7 DAYS Problem List As Of Date 10/06/2023 Noted Resolved Failure to thrive in adult [...] 09/05/2023 Gastric outlet obstruction [K31.1] 09/01/2023 Encounter for attention to gastrostomy (HCC) [Z*10/03/2023 Encounter Status:Closed by JESSIE ZAMORA on 10/06/23 Normal [facility] COVID CepheidOrdered By: Mckenzie Gutiérrez on 10-06-2023 SARS-CoV-2 (COVID-19) Ab IA Ql Negative Negative [facility] Comment on above: This is a duplicate Cepheid Xpert Xpress CoV-2/Flu/RSV Plus RNA by RT-PCR result to be used for statistical tracking purpose only. SARS-CoV-2 (COVID-19) RNA VERITO+probe Ql (Unsp spec) [facility] COVID-19 / Flu A/B / RSV PCR on 10-06-2023 SARS-CoV-2 (COVID-19) RNA VERITO+probe Ql (Unsp spec) COVID-19 Cepheid Result Negative for SARS-CoV-2 RNA by RT-PCR Flu A Cepheid Result Negative for Flu A RNA by RT-PCR Flu B Cepheid Result Negative for Flu B RNA by RT-PCR RSV Cepheid Result Negative for RSV RNA by RT-PCR COVID19 Blank Space ------ Reference: Negative COVID19 Blank Space ------ Cepheid Disclaimer The Cepheid Xpert Xpress CoV-2/Flu/RSV Plus has Cepheid Disclaimer not been FDA cleared or approved; this test has Cepheid Disclaimer been authorized by FDA under an EUA for use by Cepheid Disclaimer authorized laboratories; this test has been Cepheid Disclaimer authorized only for the simultaneous qualitative Cepheid Disclaimer detection and differentiation of nucleic acids from Cepheid Disclaimer SARS-CoV-2, influenza A, influenza B, and Cepheid Disclaimer respiratory syncytial virus (RSV), and not for any Cepheid Disclaimer other viruses or pathogens; and this test is only Cepheid Disclaimer authorized for the duration of the declaration that Cepheid Disclaimer circumstances exist justifying the authorization of Cepheid Disclaimer emergency use of in vitro diagnostic tests for Cepheid Disclaimer detection and/or diagnosis of COVID-19 under Cepheid Disclaimer Section 564(b)(1) of the Act, 21 U.S.C. 360bbb- Cepheid Disclaimer 3(b)(1), unless the authorization is terminated or Cepheid Disclaimer revoked sooner. PERFORMED BY: [facility] [place] [address] PATHOLOGIST KNIFE CUTTER RAHEL TREVINO M.D. Normal [facility] Comment on above: Performed By: #### G PETER #### Point of Care testing , Calcium [Mass/volume] in Ser um or PlasmaOrdered By: Joseluis Mejia on 10-06-2023 Calcium [Mass/Vol] 7.8 mg/dL 8.6-10.3 [facility] Carbon dioxide, total [Moles /volume] in Serum or PlasmaOrdered By: Joseluis Mejia on 10-06-2023 CO2 [Moles/Vol] 27.0 mmol/L 21.0-31.0 [facility] Cepheid COVID PCR Negativeon 10-06-2023 SARS-CoV-2 (COVID-19) RNA VERITO+probe Ql (Unsp spec) Negative Normal Negative [facility] Comment on above: Result Comment: This is a duplicate [employer] Xpert Xpress CoV-2/Flu/RSV Plus RNA by RT-PCR result to be used for statistical tracking purpose only. PERFORMED BY: [place] [address] PATHOLOGIST KNIFE CUTTER RAHEL TREVINO M.D. Performed By: #### G PETER #### Point of Care testing , Chloride [Moles/volume] in S sadi or PlasmaOrdered By: Joseluis Mejia on 10-06-2023 Chloride [Moles/Vol] 97 mmol/L 98-107 [facility] Color Auto (U)Ordered By: Loyd Mejia on 10-06-2023 Color (U) Dark yellow Yellow [facility] Comprehensive Metabolic Pane jeff 10-06-2023 Albumin [Mass/Vol] 3.1 g/dL Low 3.5-5.7 [facility] Comment on above: Performed By: #### O B(GUAIAC) #### [address] Albumin/Globulin [Mass ratio] 1.1 {ratio} Normal [facility] Comment on above: Performed By: #### O B(GUAIAC) #### [facility] [address] [place] [address] ALP [Catalytic activity/Vol] 139 U/L High 34-104 [facility] Comment on above: Performed By: #### O B(GUAIAC) #### [facility] [address] [place] [address] [place] ALT [Catalytic activity/Vol] 16 U/L Normal 7-52 [facility] Comment on above: Performed By: #### O B(GUAIAC) #### [facility] [address] [place] [address] [place] Anion gap [Moles/Vol] 14.1 mmol/L Normal 6.0-15.0 [facility] Comment on above: Performed By: #### O B(GUAIAC) #### [facility] [address] [place] [address] AST [Catalytic activity/Vol] 23 U/L Normal 13-39 [facility] Comment on above: Performed By: #### O B(GUAIAC) #### [address] Bilirubin [Mass/Vol] 0.9 mg/dL Normal 0.3-1.0 [facility] Comment on above: Performed By: #### O B(GUAIAC) #### [address] Calcium [Mass/Vol] 7.8 mg/dL Low 8.6-10.3 [facility] Comment on above: Performed By: #### O B(GUAIAC) #### [address] Chloride [Moles/Vol] 97 mmol/L Low 98-107 [facility] Comment on above: Performed By: #### O B(GUAIAC) #### [address] CO2 [Moles/Vol] 27.0 mmol/L Normal 21.0-31.0 [facility] Comment on above: Performed By: #### O B(GUAIAC) #### [address] Creatinine [Mass/Vol] 1.38 mg/dL High 0.70-1.30 [facility] Comment on above: Performed By: #### O B(GUAIAC) #### [place] [address] [place] Creatinine Clr Calc Pharmacy 51.23 [facility] Comment on above: Performed By: #### O B(GUAIAC) #### [place] [address] [place] GFR/1.73 sq M.predicted MDRD (S/P/Bld) [Vol rate/Area] 55.701 mL/min/{1.73_m2} [facility] Comment on above: Performed By: #### O B(GUAIAC) #### [facility] [address] Globulin (S) [Mass/Vol] 2.9 g/dL Normal [facility] Comment on above: Performed By: #### O B(GUAIAC) #### [facility] [address] Glucose [Mass/Vol] 116 mg/dL High 70-100 [facility] Comment on above: Result Comment: [facility] Glucose Reference Range is dependent on time and content of last meal. Glucose of more than 200 mg/dL in a nonstressed, ambulatory subject supports the diagnosis of Diabetes Mellitus. ADA recommended reference range Performed By: #### O B(GUAIAC) #### [address] Potassium [Moles/Vol] 3.1 mmol/L Low 3.5-5.1 [facility] Comment on above: Performed By: #### O B(GUAIAC) #### [address] Protein [Mass/Vol] 6.0 g/dL Low 6.4-8.9 [facility] Comment on above: Performed By: #### O B(GUAIAC) #### [address] Sodium [Moles/Vol] 135 mmol/L Low 136-145 [facility] Comment on above: Performed By: #### O B(GUAIAC) #### [place] [address] [place] Urea nitrogen [Mass/Vol] 34 mg/dL High 7-25 [facility] Comment on above: Performed By: #### O B(GUAIAC) #### [place] [address] [place] Creatinine [Mass/volume] in Serum or PlasmaOrdered By: Joseluis Mejia on 10-06-2023 Creatinine [Mass/Vol] 1.38 mg/dL 0.70-1.30 [facility] Diff and CBCon 10-06-2023 Band form neutrophils/100 WBC (Bld) 14 % High 0-5 [facility] Comment on above: Performed By: #### O B(GUAIAC) #### [address] Erythrocyte distribution width (RBC) [Ratio] 13.9 % Normal 12.0-14.8 [facility] Comment on above: Performed By: #### O B(GUAIAC) #### [address] Hematocrit (Bld) [Volume fraction] 30.4 % Low 38.8-50.0 [facility] Comment on above: Performed By: #### O B(GUAIAC) #### [address] Hemoglobin (Bld) [Mass/Vol] 10.2 g/dL Low 13.0-17.0 [facility] Comment on above: Performed By: #### O B(GUAIAC) #### [address] Lymphocytes/100 WBC (Bld) 1 % Low 18-42 [facility] Comment on above: Performed By: #### O B(GUAIAC) #### [address] MCH (RBC) [Entitic mass] 29.0 pg Normal 27.5-35.2 [facility] Comment on above: Performed By: #### O B(GUAIAC) #### [address] MCV (RBC) [Entitic vol] 86.3 fL Normal 83.5-101 [facility] Comment on above: Performed By: #### O B(GUAIAC) #### [address] Mean Corpuscular HGB Conc 33.6 g/dL Normal 32.5-35.6 [facility] Comment on above: Performed By: #### O B(GUAIAC) #### [address] Microcytosis Moderate Normal [facility] Comment on above: Performed By: #### O B(GUAIAC) #### [address] Monocytes/100 WBC (Bld) 37.74 % High 0.00-20.00 [facility] Comment on above: Result Comment: For adults in ED, MDW > 20.0 may be associated with a higher risk of sepsis during the first 12 hrs of hospital admission The predictive value of MDW for identifying sepsis in patients with hematological abnormalities has not been established Performed By: #### O B(GUAIAC) #### [address] Monocytes/100 WBC (Bld) 9 % Normal 2-11 [facility] Comment on above: Performed By: #### O B(GUAIAC) #### [address] Platelet Estimate Normal Normal Normal [facility] Comment on above: Performed By: #### O B(GUAIAC) #### [address] Platelet mean volume (Bld) [Entitic vol] 10.2 fL High 6.6-10.1 [facility] Comment on above: Result Comment: PERF ORMED BY: [place] [address] PATHOLOGIST KNIFE CUTTER RAHEL TREVINO M.D. Performed By: #### O B(GUAIAC) #### [address] Platelet Morphology Normal Normal Normal [facility] Comment on above: Result Comment: PERF ORMED BY: [place] [address] PATHOLOGIST KNIFE CUTTER RAHEL TREVINO M.D. Performed By: #### O B(GUAIAC) #### [place] [address] [place] Platelets (Bld) [#/Vol] 154 10*3/uL Normal 150-450 [facility] Comment on above: Performed By: #### O B(GUAIAC) #### [facility] [address] [place] [address] Poikilocytosis Slight Normal [facility] Comment on above: Performed By: #### O B(GUAIAC) #### [address] Polychromasia Slight Normal [facility] Comment on above: Performed By: #### O B(GUAIAC) #### [address] RBC (Bld) [#/Vol] 3.52 10*6/uL Low 3.90-5.60 [facility] Comment on above: Performed By: #### O B(GUAIAC) #### [address] Segmented neutrophils/100 WBC (Bld) 76 % High 50-70 [facility] Comment on above: Performed By: #### O B(GUAIAC) #### [address] WBC (Bld) [#/Vol] 24.5 10*3/uL High 4.1-10.5 [facility] Comment on above: Performed By: #### O B(GUAIAC) #### [address] ECG 12 lead ECGon 10-06-2023 ECG 12 lead ECG [facility] [place] [address] [place] [address] Electrocardiograph Report Signed Patient: Aisha Julien MR#: [id number] : 1955 Acct:[id number] Age/Sex: 68 / M ADM Date: 10/06/23 Loc: ER Room: Type: PRE ER Attending Dr: Ordering Provider: Joseluis Mejia PA-C Date of Service: 10/06/2308/17/1354 ECG/ECG 12 lead ECG: Recheck/Abnormal Lab/Rx Copies to: Test Reason : Blood Pressure : / mmHG Vent. Rate : 094 BPM Atrial Rate : 094 BPM P-R Int : 142 ms QRS Dur : 092 ms QT Int : 378 ms P-R-T Axes : 066 091 041 degrees QTc Int : 472 ms Normal sinus rhythm Rightward axis Borderline ECG When compared with ECG of 24-JUL-2023 15:52, Sinus rhythm has replaced Wide QRS rhythm Confirmed by TYRA GIBBONS MD ([id number]) on 10/06/2023 2:42:49 PM Referred By: Electronically Signed By:TYRA GIBBONS MD Transcribed By: MUS Signed By Tyra Gibbons MD 09/25 10/18 1442 Normal [facility] Eosinophils Auto (Bld) [#/Vo l]Ordered By: Joseluis Mejia on 10-06-2023 Eosinophils (Bld) [#/Vol] N/A [facility] Eosinophils/100 WBC Auto (Bl d)Ordered By: Joseluis Mejia on 10-06-2023 Eosinophils/100 WBC (Bld) N/A [facility] Erythrocyte distribution wid th Auto (RBC) [Ratio]Ordered By: Joseluis Mejia on 10-06-2023 Erythrocyte distribution width (RBC) [Ratio] 13.9 % 12.0-14.8 [facility] Globulin Calc (S) [Mass/Vol] Ordered By: Joseluis Mejia on 10-06-2023 Globulin (S) [Mass/Vol] 2.9 g/dL [facility] Glucose [Mass/volume] in Ser um or PlasmaOrdered By: Joseluis Mejia on 10-06-2023 Glucose [Mass/Vol] 116 mg/dL 70-100 [facility] Comment on above: ADA recommended refe rence rangeRandom Glucose Reference Range is dependent on time and content of last meal. Glucose of more than 200 mg/dL in a nonstressed, ambulatory subject supports the diagnosis of Diabetes Mellitus. Hematocrit Auto (Bld) [Volum e fraction]Ordered By: Joseluis Mejia on 10-06-2023 Hematocrit (Bld) [Volume fraction] 30.4 % 38.8-50.0 [facility] Hemoglobin [Mass/volume] in BloodOrdered By: Joseluis Mejia on 10-06-2023 Hemoglobin (Bld) [Mass/Vol] 10.2 g/dL 13.0-17.0 [facility] INR in Platelet poor plasma by Coagulation assayOrdered By: Joseluis Mejia on 10-06-2023 INR Coag (PPP) [Relative time] 1.2 {INR} [facility] Comment on above: INR Therapeutic Rang [...] Ketones Auto test strip (U) [Mass/Vol]Ordered By: Joseluis Mejia on 10-06-2023 Ketones (U) [Mass/Vol] Negative Negative Fi [facility] Lactate [Moles/volume] in Se rum or PlasmaOrdered By: Jean Paul Gutiérrez on 10-06-2023 Lactate [Moles/Vol] 1.5 mmol/L 0.5-2.2 [facility] Lactic Acidon 10-06-2023 Lactate [Moles/Vol] 1.5 mmol/L Normal 0.5-2.2 [facility] Comment on above: Result Comment: PERF ORMED BY: [place] [address] PATHOLOGIST KNIFE CUTTER RAHEL TREVINO M.D. Performed By: #### C REAT, PP, LYTES, LIPID, CBC, BUN #### [facility] [address] [place] [address] [facility] Lactate [Moles/Vol] 1.3 mmol/L Normal 0.5-2.2 [facility] Comment on above: Result Comment: PERF ORMED BY: [place] [address] PATHOLOGIST KNIFE CUTTER RAHEL TREVINO M.D. Performed By: #### O B(GUAIAC) #### [facility] [address] [place], [place] [id number] [place] Leukocytes [#/volume] correc johnnie for nucleated erythrocytes in Blood by Automated counOrdered By: Joseluis Mejia on 10-06-2023 WBC corrected for nucl RBC Auto (Bld) [#/Vol] 24.5 10*3/uL 4.1-10.5 [facility] Lymphocytes Auto (Bld) [#/Vo l]Ordered By: Joseluis Mejia on 10-06-2023 Lymphocytes (Bld) [#/Vol] N/A [facility] Lymphocytes/100 WBC Auto (Bl d)Ordered By: Joseluis Mejia on 10-06-2023 Lymphocytes/100 WBC (Bld) N/A [facility] Lymphocytes/100 WBC Manual c nt (Bld)Ordered By: Joseluis Mejia on 10-06-2023 Lymphocytes/100 WBC (Bld) 1 % 18-42 [facility] MCH Auto (RBC) [Entitic mass ]Ordered By: Joseluis Mejia on 10-06-2023 MCH (RBC) [Entitic mass] 29.0 pg 27.5-35.2 [facility] MCHC Auto (RBC) [Mass/Vol]Or dered By: Joseluis Mejia on 10-06-2023 MCHC (RBC) [Mass/Vol] 33.6 g/dL 32.5-35.6 [facility] MCV Auto (RBC) [Entitic vol] Ordered By: Joseluis Mejia on 10-06-2023 MCV (RBC) [Entitic vol] 86.3 fL 83.5-101 [facility] Magnesiumon 10-06-2023 Magnesium [Mass/Vol] 2.0 mg/dL Normal 1.9-2.7 [facility] Comment on above: Result Comment: PERF ORMED BY: [place] [address] PATHOLOGIST KNIFE CUTTER RAHEL TREVINO M.D. Performed By: #### O B(GUAIAC) #### [address] Magnesium [Mass/volume] in S sadi or PlasmaOrdered By: Joseluis Mejia on 10-06-2023 Magnesium [Mass/Vol] 2.0 mg/dL 1.9-2.7 [facility] Microcytes LM Ql (Bld)Ordere d By: Joseluis Mejia on 10-06-2023 Microcytes Ql (Bld) Moderate [facility] Monocyte distribution width [Entitic volume] in Blood by AutomatedOrdered By: Joseluis Mejia on 10-06-2023 Monocyte distribution width Auto (Bld) [Entitic vol] 37.74 % 0.00-20.00 [facility] Comment on above: For adults in ED, MD W > 20.0 may be associated with a higher risk of sepsis during the first 12 hrs of hospital admissionThe predictive value of MDW for identifying sepsis in patients with hematological abnormalities has not been established Monocytes Auto (Bld) [#/Vol] Ordered By: Joseluis Mejia on 10-06-2023 Monocytes (Bld) [#/Vol] N/A [facility] Monocytes/100 WBC Auto (Bld) Ordered By: Joseluis Mejia on 10-06-2023 Monocytes/100 WBC (Bld) N/A [facility] Monocytes/100 WBC Manual cnt (Bld)Ordered By: Joseluis Mejia on 10-06-2023 Monocytes/100 WBC (Bld) 9 % 2-11 [facility] Natriuretic peptide B [Mass/ Vol]Ordered By: Joseluis Mejia on 10-06-2023 Natriuretic peptide B (Bld) [Mass/Vol] 436.0 pg/mL 5-100 [facility] Neutrophils Auto (Bld) [#/Vo l]Ordered By: Joseluis Mejia on 10-06-2023 Neutrophils (Bld) [#/Vol] N/A [facility] Neutrophils/100 WBC Auto (Bl d)Ordered By: Joseluis Mejia on 10-06-2023 Neutrophils/100 WBC (Bld) N/A [facility] Nitrite Test strip Ql (U)Ord ered By: Joseluis Mejia on 10-06-2023 Nitrite Ql (U) Negative Negative [facility] No Panel InformationOrdered By: Jean Paul Gutiérrez on 10-06-2023 Bacterial ID (NA Multiplex Assay) Enterobacter cloacae complex [facility] No Panel InformationOrdered By: Joseluis Mejia on 10-06-2023 Estimated GFR (CKD-EPI) 55.701 mL/Min [facility] Creatinine Clearance (Chem 51.23 [facility] Nucleated erythrocytes [Pres ence] in Blood by Automated countOrdered By: Joseluis Mejia on 10-06-2023 Nucleated RBC Auto Ql (Bld) N/A [facility] Partial Thromboplastin Timeo n 10-06-2023 aPTT Coag (Bld) [Time] 31.8 s Normal 25.1-36.5 [facility] Comment on above: Result Comment: A he matocrit value greater than 55% may lead to inaccurate results in coagulation testing. Patients having hematocrit values >55% require a special collection tube for coagulation studies. Please contact the laboratory at [phone] for redraw instructions. PERFORMED BY: [place] [address] PATHOLOGIST KNIFE CUTTER RAHEL TREVINO M.D. Performed By: #### O B(GUAIAC) #### [address] Platelet adequacy [Presence] in Blood by Light microscopyOrdered By: Joseluis Mejia on 10-06-2023 Platelets LM Ql (Bld) Normal Normal [facility] Platelet mean volume Auto (B ld) [Entitic vol]Ordered By: Joseluis Mejia on 10-06-2023 Platelet mean volume (Bld) [Entitic vol] 10.2 fL 6.6-10.1 [facility] Platelet morphology finding [Identifier] in BloodOrdered By: Joseluis Mejia on 10-06-2023 Platelet morphology finding Nom (Bld) Normal Normal [facility] Platelets Auto (Bld) [#/Vol] Ordered By: Joseluis Mejia on 10-06-2023 Platelets (Bld) [#/Vol] 154 10*3/uL 150-450 [facility] Poikilocytosis [Presence] in Blood by Light microscopyOrdered By: Joseluis Mejia on 10-06-2023 Poikilocytosis LM Ql (Bld) [facility] Polychromasia [Presence] in Blood by Light microscopyOrdered By: Joseluis Mejia on 10-06-2023 Polychromasia LM Ql (Bld) [facility] Potassium [Moles/volume] in Serum or PlasmaOrdered By: Joseluis Mejia on 10-06-2023 Potassium [Moles/Vol] 3.1 mmol/L 3.5-5.1 [facility] Protein Auto test strip (U) [Mass/Vol]Ordered By: Joseluis Mejia on 10-06-2023 Protein (U) [Mass/Vol] Negative Negative [facility] Protein [Mass/volume] in Ser um or PlasmaOrdered By: Joseluis Mejia on 10-06-2023 Protein [Mass/Vol] 6.0 g/dL 6.4-8.9 [facility] Prothrombin Time INRon 10-06 INR Coag (PPP) [Relative time] 1.2 {INR} Normal [facility] Comment on above: Result Comment: INR [...] valves: 3 - 4.5 Performed By: #### O B(GUAIAC) #### [facility] [address] [place] [id number] [facility] PT Coag (PPP) [Time] 13.9 s High 9.0-12.9 [facility] Comment on above: Result Comment: A he matocrit value greater than 55% may lead to inaccurate results in coagulation testing. Patients having hematocrit values >55% require a special collection tube for coagulation studies. Please contact the laboratory at [phone] for redraw instructions. Performed By: #### O B(GUAIAC) #### [facility] [address] [place] [address] [facility] Prothrombin time (PT)Ordered By: Joseluis Mejia on 10-06-2023 PT Coag (PPP) [Time] 13.9 s 9.0-12.9 [facility] Comment on above: A hematocrit value g reater than 55% may lead to inaccurate results in coagulation testing. Patients having hematocrit values >55% require a special collection tube for coagulation studies. Please contact the laboratory at [phone] for redraw instructions. RBC Auto (Bld) [#/Vol]Ordere d By: Joseluis Mejia on 10-06-2023 RBC (Bld) [#/Vol] 3.52 10*6/uL 3.90-5.60 [facility] RBC morphologyOrdered By: Loyd Mejia on 10-06-2023 RBC morphology finding Nom (Bld) N/A [facility] Segmented neutrophils/100 WB C Manual cnt (Bld)Ordered By: Joseluis Mejia on 10-06-2023 Segmented neutrophils/100 WBC (Bld) 76 % 50-70 [facility] Serum or plasma albumin/glob ulin mass ratioOrdered By: Joseluis Mejia on 10-06-2023 Albumin/Globulin [Mass ratio] 1.1 {ratio} [facility] Serum or plasma anion gap de terminationOrdered By: Joseluis Mejia on 10-06-2023 Anion gap [Moles/Vol] 14.1 mmol/L 6.0-15.0 [facility] Sodium [Moles/volume] in Ser um or PlasmaOrdered By: Joseluis Mejia on 10-06-2023 Sodium [Moles/Vol] 135 mmol/L 136-145 [facility] Specific gravity Auto test s trip (U) [Rel density]Ordered By: Joseluis Mejia on 10-06-2023 Specific gravity (U) [Rel density] 1.015 1.001-1.03 0 [facility] Troponin I High Sensitivityo n 10-06-2023 Troponin I High Sensitivity 19.4 pg/mL Normal 0.0-20.0 [facility] Comment on above: Result Comment: PERF ORMED BY: [place] [address] PATHOLOGIST KNIFE CUTTER RAHEL TREVINO M.D. Performed By: #### O B(GUAIAC) #### [address] Troponin I.cardiac [Mass/vol ume] in Serum or Plasma by Detection limit <= 0.01 ng/Ordered By: Joseluis Mejia on 10-06-2023 Troponin I.cardiac DL <= 0.01 ng/mL [Mass/Vol] 19.4 pg/mL 0.0-20.0 [facility] Urea nitrogen [Mass/volume] in Serum or PlasmaOrdered By: Joseluis Mejia on 10-06-2023 Urea nitrogen [Mass/Vol] 34 mg/dL 03-18 [facility] Urinalysison 10-06-2023 Appearance (U) Clear Normal Clear [facility] Comment on above: Order Comment: Name Collection Type:: Clean-Voided Midstream Performed By: #### U A #### [facility] [address] [place] [address] [place] Bilirubin,Urine 1+ High Negative [facility] Comment on above: Order Comment: Name Collection Type:: Clean-Voided Midstream Performed By: #### U A #### [facility] [address] [place] [address] [place] Color (U) Dark Yellow Critically abnormal Yellow [facility] Comment on above: Order Comment: Name Collection Type:: Clean-Voided Midstream Performed By: #### U A #### [facility] [address] [place] [address] [place] Glucose Ql (U) Normal Normal Normal [facility] Comment on above: Order Comment: Name Collection Type:: Clean-Voided Midstream Performed By: #### U A #### [facility] [address] [place] [address] [place] Ketones Ql (U) Negative Normal Negative [facility] Comment on above: Order Comment: Name Collection Type:: Clean-Voided Midstream Performed By: #### U A #### [facility] [address] [place] [address] [place] Leukocyte esterase Test strip Ql (U) Negative Normal Negative [facility] Comment on above: Order Comment: Name Collection Type:: Clean-Voided Midstream Performed By: #### U A #### [facility] [address] [place] [address] [place] Nitrite,Urine Negative Normal Negative [facility] Comment on above: Order Comment: Name Collection Type:: Clean-Voided Midstream Performed By: #### U A #### [address] Occult Blood,Urine Negative Normal Negative [facility] Comment on above: Order Comment: Name Collection Type:: Clean-Voided Midstream Result Comment: PERF ORMED BY: [place] [address] PATHOLOGIST KNIFE CUTTER RAHEL TREVINO M.D. Performed By: #### U A #### [address] pH (U) 5.0 [pH] Normal 5.0-9.0 [facility] Comment on above: Order Comment: Name Collection Type:: Clean-Voided Midstream Performed By: #### U A #### [address] Protein,Urine Negative Normal Negative [facility] Comment on above: Order Comment: Name Collection Type:: Clean-Voided Midstream Performed By: #### U A #### [address] Specificy [place],Urine 1.015 Normal 1.00 1-1.03 0 [facility] Comment on above: Order Comment: Name Collection Type:: Clean-Voided Midstream Performed By: #### U A #### [address] Urobilinogen,Urine Normal Normal Normal [facility] Comment on above: Order Comment: Name Collection Type:: Clean-Voided Midstream Performed By: #### U A #### [address] Urine clarity by refractomet ry automatedOrdered By: Joseluis Mejia on 10-06-2023 Clarity Refractometry automated (U) Clear Clear [facility] Urine glucose measurement by automated test strip (mass/volume)Ordered By: Joseluis Mejia on 10-06-2023 Glucose Auto test strip (U) [Mass/Vol] Normal mg/dL Normal [facility] Urine hemoglobin detection b y automated test stripOrdered By: Joseluis Mejia on 10-06-2023 Hemoglobin Auto test strip Ql (U) Negative Negative [facility] Urine leukocyte esterase det ection by automated test stripOrdered By: Joseluis Mejia on 10-06-2023 Leukocyte esterase Auto test strip Ql (U) Negative Negative [facility] Urobilinogen Auto test strip (U) [Mass/Vol]Ordered By: Joseluis Mejia on 10-06-2023 Urobilinogen (U) [Mass/Vol] Normal mg/dL Normal [facility] WBC Auto (Bld) [#/Vol]Ordere d By: Joseluis Mejia on 10-06-2023 WBC (Bld) [#/Vol] 24.5 10*3/uL 4.1-10.5 [facility] XR chest 2V*on 10-06-2023 XR chest 2V* [facility] [place] [address] XRay Report Signed Patient: Aisha Julien MR#: [id number] : 1955 Acct:[id number] Age/Sex: 68 / M ADM Date: 10/06/23 Loc: ER Room: Type: PRE ER Attending Dr: Copies to: Joseluis Mejia PA-C TEMP, PROVIDER Ordering Provider: Joseluis Mejia PA-C Date of Service: 10/06/23 XR/XR chest 2V*: Recheck/Abnormal Lab/Rx Chest 2 views CLINICAL HISTORY: Low blood pressure per home health nurse. COMPARISON: None FINDINGS: Right-sided PICC line tip in the SVC. Heart is normal in size. Lungs are clear. No free air. XR/XR chest 2V* IMPRESSION: NO ACUTE CARDIOPULMONARY ABNORMALITY. Impression dictated by: Lebron Santa Jr., D.OAlma10/06/2023 2:13 PM Dictation Location: [place] [address] Transcribed By: [facility] 10/06/23 1413 Dictated By: Lebron Santa Jr, DO 10/06/23 1412 Signed By: 10/06/23 1413 Normal [facility] pH Auto test strip (U)Ordere d By: Joseluis Mejia on 10-06-2023 pH (U) 5.0 [pH] 5.0-9.0 [facility] CNOVon 10-02-2023 CNOV Office Visit (GENNOM ) -------- AISHA JULIEN ([id number]) 1955 M Date Time Provider Department 10/02/23 [...] lesions, tenderness (more content not included)... Normal [facility] CT PANCREAS/PELVIS W IVCONon 10-01-2023 CT PANCREAS/PELVIS W IVCON * * *Final Report* * * DATE OF EXAM: Oct 01 2023 9:04AM [facility] 0553 - CT PANCREAS/PELVIS W [...] of the third duodenum in region of pancreatic/peripancreati c mass, similar to prior, without gross interval [...] No organized collection. Mesenteric stranding/edema with central mesenteric/peripancreati c jackelyn mass as above and additional right lower quadrant jackelyn metastases. 2.2 cm nodular scalloping along the right hepatic dome, suspicious for peritoneal neoplastic implant and grossly unchanged (8:17). 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 Splenic vein nearly occluded but grossly patent. Associated perigastric paraesophageal, and mesenteric/peripancreati c venous collaterals. Main portal vein is mildly [...] by: NATHALIE (more content not included)... [facility] Telephone ([id number]) -------- WILYAISHA L ([id number]) 1955 M Date Time Provider Department 09/15/23 [facility] [id number] During your visit today, we recorded the following information about you: Kelsea Valenzuela MA 09/15/2023 1:04 PM Signed Cesilia from [facility] called needing clarification on his discharge medications. Call back # [phone] Jessie Zamora RN 09/15/2023 4:21 PM Signed Called Cesilia back from [facility] to help clarify medications from recent admission. Allergies As of Date: 09/15/2023 (No Known Allergies) Date Reviewed: 09/05/2023 Reviewed by: Guerline Peralta RN - Fully Assessed Reason for Visit: Patient Question [7263] [employer] - Other [3602] Prescriptions as of 09/15/2023 - potassium (POTASSIMIN [...] Encounter Status:Closed by JESSIE ZAMORA on 09/15/23 [id number] -------- AISHA JULIEN ([id number]) 1955 M Date Time Provider Department 09/10/23 [facility] [id number] During your visit today, we recorded the following information about you: Pantera Rojas Naveen 09/10/2023 2:20 PM Signed Mayra called from [facility]. She need a current medication list faxed to [phone]. If you have any questions she can be reached at [phone]. Thank you! Jessie Zamora RN 09/11/2023 10:01 AM Signed Hospital discharge medication list faxed 09/10/23 to [facility]. Allergies As of Date: 09/10/2023 (No Known [...] Status:Closed by JESSIE ZAMORA on 09/11/23 Normal [facility] Albumin SerPl-mCncon 024 Albumin [Mass/Vol] 2.9 g/dL Low 3.9-4.9 [facility] Comment on above: Order Comment: Speci men Type: BLOOD SPECIMENOrdering Facility: [facility] Address: [address] [place] [address] Performed By: #### 1 751-7, 07647-2, 07642-7, 277- ####[facility] LABORATORYCLIA [id number] [place] [id number] [place] Basic metabolic 2000 panelon 09-05-2023 Anion gap [Moles/Vol] 10 mmol/L Normal - [facility] Comment on above: Order Comment: Miai daniela Type: BLOOD SPECIMENOrdering Facility: [facility] Address: [address] [place] [address] Performed By: #### 1 751-7, 89642-4, 28694-6, 277- ####[facility] LABORATORYCLIA [id number] [place] [id number] [place] Calcium [Mass/Vol] 8.2 mg/dL Low 8.5-10.2 [facility] Comment on above: Order Comment: Miai men Type: BLOOD SPECIMENOrdering Facility: [facility] Address: [address] [place] [address] Performed By: #### 1 751-7, 65530-9, 08002-1, 2776- ####[facility] LABORATORYCLIA [id number] [place] [address] [place] Chloride [Moles/Vol] 107 mmol/L High 97-105 [facility] Comment on above: Order Comment: Speci men Type: BLOOD SPECIMENOrdering Facility: [facility] Address: [address] [place] [address] Performed By: #### 1 751-7, 09187-9, , 2776- ####[facility] LABORATORYCLIA [id number] [place] [id number] [place] CO2 [Moles/Vol] 24 mmol/L Normal 22-30 [facility] Comment on above: Order Comment: Speci men Type: BLOOD SPECIMENOrdering Facility: [facility] Address: [address] [place] [address] Performed By: #### 1 751-7, 31795-1, , 2776-08 ####[facility] LABORATORYCLIA [id number] [place] [id number] [place] Creatinine [Mass/Vol] 0.83 mg/dL Normal 0.73-1.22 [facility] Comment on above: Order Comment: Speci men Type: BLOOD SPECIMENOrdering Facility: [facility] Address: [address] [place] [address] Performed By: #### 1 751-7, 25165-9, , 2776-08 ####L[facility] LABORATORYCLIA [id number] [place] [address] [place] Creatinine and Glomerular filtration rate.predicted panel (S/P/Bld) 95 mL/min/1.73m??? Normal >=60 [facility] Comment on above: Order Comment: Speci men Type: BLOOD SPECIMENOrdering Facility: [facility] Address: [address] [place] [address] Result Comment: Bailey mated Glomerular Filtration Rate [...] actual GFR. Performed By: #### 1 751-7, 00038-2, , 2776-08 ####[facility] LABORATORYCLIA [id number] [place] [address] [place] Glucose [Mass/Vol] 75 mg/dL Normal 74-99 [facility] Comment on above: Order Comment: Arben suarez Type: BLOOD SPECIMENOrdering Facility: [facility] Address: [address] [place] [address] Result Comment: The [place] Diabetes Association (ADA) provides guidance for cutoff [...] Standards of Medical Care in Diabetes 2016, [place] Diabetes Association. Diabetes Care. 2016.39(Suppl 1). Performed By: #### 1 751-7, 99269-1, , 2776-08 ####[facility] LABORATORYCLIA [id number] [place] [id number] [place] Potassium [Moles/Vol] 4.4 mmol/L Normal 3.7-5.1 [facility] Comment on above: Order Comment: Arbne suarez Type: BLOOD SPECIMENOrdering Facility: [facility] Address: [address] [place] [address] Performed By: #### 1 751-7, 82215-5, , 2776-08 ####[facility] LABORATORYCLIA [id number] [place] [id number] [place] Sodium [Moles/Vol] 141 mmol/L Normal 136-144 [facility] Comment on above: Order Comment: Speci men Type: BLOOD SPECIMENOrdering Facility: [facility] Address: [address] [place] [id number] Performed By: #### 1 751-7, 34786-2, , 2776-08 ####[facility] LABORATORYCLIA [id number] [place] [id number] [place] Urea nitrogen [Mass/Vol] 25 mg/dL High 9-24 [facility] Comment on above: Order Comment: Speci men Type: BLOOD SPECIMENOrdering Facility: [facility] Address: [address] [place] [address] Performed By: #### 1 751-7, 83770-7, , 2776-08 ####[facility] LABORATORYCLIA [id number] [place] [id number] [facility] CASE MANAGEMon 09-05-2023 CASE MANAGEM Normal [facility] CASE MANAGEM [facility] CASE MANAGEM Normal [facility] CASE MANAGEM Normal [facility]-05[facility] Magnesium [Mass/Vol] 2.2 mg/dL Normal 1.7-2.3 [facility] Comment on above: Order Comment: Speci men Type: BLOOD SPECIMENOrdering Facility: [facility] Address: [place] [id number] Performed By: #### 1 751-7, 63029-3, , 2776-08 ####[facility] LABORATORYCLIA [id number] [place] [address] [place] NUTRITIONon 09-05-2023 NUTRITION Normal [facility] Phosphate SerPl-mCncon 09-05 Phosphate [Mass/Vol] 4.6 mg/dL Normal 2.7-4.8 [facility] Comment on above: Order Comment: Speci men Type: BLOOD SPECIMENOrdering Facility: [facility] Address: Michael [facility] [place] [address] Performed By: #### 1 751-7, 58100-3, , 2776-08 ####[facility] LABORATORYCLIA [id number] [place] [id number] [place] Albumin SerPl-mCncon 024 Albumin [Mass/Vol] 2.4 g/dL Low 3.9-4.9 [facility] Comment on above: Order Comment: Speci men Type: BLOOD SPECIMENOrdering Facility: [facility] Address: [address] [place] [address] Performed By: #### 1 751-7, 31081-0, , 2776-08 ####[facility] LABORATORYCLIA [id number] [place] [id number] [place] Basic metabolic 2000 panelon 09-04-2023 Anion gap [Moles/Vol] 6 mmol/L Low 9-18 [facility] Comment on above: Order Comment: Speci men Type: BLOOD SPECIMENOrdering Facility: [facility] Address: [address] [place] [address] Performed By: #### 1 751-7, 52008-2, , 2776-08 ####[facility] LABORATORYCLIA [id number] [place] [id number] [place] Calcium [Mass/Vol] 8.0 mg/dL Low 8.5-10.2 [facility] Comment on above: Order Comment: Speci men Type: BLOOD SPECIMENOrdering Facility: [facility] Address: [address] [place] [address] Performed By: #### 1 751-7, 34659-6, , 2776-08 ####[facility] LABORATORYCLIA [id number] [place] [id number] [place] Chloride [Moles/Vol] 103 mmol/L Normal 97-105 [facility] Comment on above: Order Comment: Speci men Type: BLOOD SPECIMENOrdering Facility: [facility] Address: [address] [place] [address] Performed By: #### 1 751-7, 61733-0, , 2776-08 ####L[facility] LABORATORYCLIA [id number] [place] [address] [place] CO2 [Moles/Vol] 30 mmol/L Normal 22-30 [facility] Comment on above: Order Comment: Speci men Type: BLOOD SPECIMENOrdering Facility: [facility] Address: [address] [place] [address] Performed By: #### 1 751-7, 11821-0, , 2776-08 ####L[facility] LABORATORYCLIA [id number] [place] [id number] [place] Creatinine [Mass/Vol] 0.80 mg/dL Normal 0.73-1.22 [facility] Comment on above: Order Comment: Speci men Type: BLOOD SPECIMENOrdering Facility: [facility] Address: [address] [place] [address] Performed By: #### 1 751-7, 05898-2, , 2776-08 ####L[facility] LABORATORYCLIA [id number] [place] [address] [place] Creatinine and Glomerular filtration rate.predicted panel (S/P/Bld) 96 mL/min/1.73m??? Normal >=60 [facility] Comment on above: Order Comment: Speci men Type: BLOOD SPECIMENOrdering Facility: [facility] Address: [address] [place] [address] Result Comment: Bailey mated Glomerular Filtration Rate [...] actual GFR. Performed By: #### 1 751-7, 50607-5, , 2776-08 ####L[facility] LABORATORYCLIA [id number] [place] [address] [place] Glucose [Mass/Vol] 109 mg/dL High 74-99 [facility] Comment on above: Order Comment: Arben daniela Type: BLOOD SPECIMENOrdering Facility: [facility] Address: [address] [place] [address] Result Comment: The [place] Diabetes Association (ADA) provides guidance for cutoff [...] Standards of Medical Care in Diabetes 2016, [place] Diabetes Association. Diabetes Care. 2016.39(Suppl 1). Performed By: #### 1 751-7, 90459-6, 55169-1, 2776- ####[facility] LABORATORYCLIA [id number] [place] [address] [place] Potassium [Moles/Vol] 4.3 mmol/L Normal 3.7-5.1 [facility] Comment on above: Order Comment: Arben daniela Type: BLOOD SPECIMENOrdering Facility: [facility] Address: [address] [place] [address] Performed By: #### 1 751-7, 39664-7, , 2776-08 ####L[facility] LABORATORYCLIA [id number] [place] [id number] [place] Sodium [Moles/Vol] 139 mmol/L Normal 136-144 [facility] Comment on above: Order Comment: [facility] Type: BLOOD SPECIMENOrdering Facility: [facility] Address: [address] [place] [address] Performed By: #### 1 751-7, 85472-8, , 2776- ####[facility] LABORATORYCLIA [id number] [place] [id number] [place] Urea nitrogen [Mass/Vol] 21 mg/dL Normal 9-24 [facility] Comment on above: Order Comment: Speci men Type: BLOOD SPECIMENOrdering Facility: [facility] Address: [place] [address] Performed By: #### 1 751-7, 28821-7, , 2776-08 ####L[facility] LABORATORYCLIA [id number] [place] [id number] [facility] CASE MANAGEMon 09-04-2023 CASE MANAGEM Normal [facility] Magnesium SerPl-mCncon 09-04 Magnesium [Mass/Vol] 2.1 mg/dL Normal 1.7-2.3 [facility] Comment on above: Order Comment: Speci men Type: BLOOD SPECIMENOrdering Facility: [facility] Address: [place] [address] Performed By: #### 1 751-7, 91462-6, , 2776-08 ####[facility] LABORATORYCLIA [id number] [place] [id number] [place] NUTRITIONon 09-04-2023 NUTRITION Normal [facility] Phosphate SerPl-mCncon 09-04 Phosphate [Mass/Vol] 3.6 mg/dL Normal 2.7-4.8 [facility] Comment on above: Order Comment: Speci men Type: BLOOD SPECIMENOrdering Facility: [facility] Address: [place] [address] Performed By: #### 1 751-7, 96427-6, , 2776-08 ####L[facility] LABORATORYCLIA [id number] [place] [id number] [place] Albumin SerPl-mCncon 024 Albumin [Mass/Vol] 2.7 g/dL Low 3.9-4.9 [facility] Comment on above: Order Comment: Speci men Type: BLOOD SPECIMENOrdering Facility: [facility] Address: [place] [address] Performed By: #### 1 751-7, 08932-6, , 2776-08 ####[facility] LABORATORYCLIA [id number] [place] [address] [place] Basic metabolic 2000 panelon 09-03-2023 Anion gap [Moles/Vol] 9 mmol/L Normal 9-18 [facility] Comment on above: Order Comment: Speci men Type: BLOOD SPECIMENOrdering Facility: [facility] Address: [address] [place] [address] Performed By: #### 1 751-7, 11781-5, , 2776- ####[facility] LABORATORYCLIA [id number] [place] [id number] [place] Calcium [Mass/Vol] 8.1 mg/dL Low 8.5-10.2 [facility] Comment on above: Order Comment: Speci men Type: BLOOD SPECIMENOrdering Facility: [facility] Address: [address] [place] [address] Performed By: #### 1 751-7, 46270-9, , 2776- ####[facility] LABORATORYCLIA [id number] [place] [id number] [place] Chloride [Moles/Vol] 97 mmol/L Normal 97-105 [facility] Comment on above: Order Comment: Speci men Type: BLOOD SPECIMENOrdering Facility: [facility] Address: [address] [place] [address] Performed By: #### 1 751-7, 44156-8, , 2776-08 ####[facility] LABORATORYCLIA [id number] [place] [id number] [place] CO2 [Moles/Vol] 31 mmol/L High 22-30 [facility] Comment on above: Order Comment: Speci men Type: BLOOD SPECIMENOrdering Facility: [facility] Address: [address] [place] [address] Performed By: #### 1 751-7, 17540-3, , 2776- ####[facility] LABORATORYCLIA [id number] [place] [address] [place] Creatinine [Mass/Vol] 0.84 mg/dL Normal 0.73-1.22 [facility] Comment on above: Order Comment: Arben suarez Type: BLOOD SPECIMENOrdering Facility: [facility] Address: [address] [place] [address] Performed By: #### 1 751-7, 17425-9, 94750-7, 2776-08 ####[facility] LABORATORYCLIA [id number] [place] [id number] [place] Creatinine and Glomerular filtration rate.predicted panel (S/P/Bld) 95 mL/min/1.73m??? Normal >=60 [facility] Comment on above: Order Comment: Arben suarez Type: BLOOD SPECIMENOrdering Facility: [facility] Address: [address] [place] [address] Result Comment: Bailey mated Glomerular Filtration Rate [...] actual GFR. Performed By: #### 1 751-7, 17968-8, 38166-8, 2776-08 ####[facility] LABORATORYCLIA [id number] [place] [id number] [place] Glucose [Mass/Vol] 91 mg/dL Normal 74-99 [facility] Comment on above: Order Comment: Arben suarez Type: BLOOD SPECIMENOrdering Facility: [facility] Address: [address] [place] [address] Result Comment: The [place] Diabetes Association (ADA) provides guidance for cutoff [...] Standards of Medical Care in Diabetes 2016, [place] Diabetes Association. Diabetes Care. 2016.39(Suppl 1). Performed By: #### 1 751-7, 21297-3, 60881-6, 2776- ####[facility] LABORATORYCLIA [id number] [place] [id number] [place] Potassium [Moles/Vol] 4.1 mmol/L Normal 3.7-5.1 [facility] Comment on above: Order Comment: Speci men Type: BLOOD SPECIMENOrdering Facility: [facility] Address: [address] [place] [address] Performed By: #### 1 751-7, 95241-0, , 2776-08 ####L[facility] LABORATORYCLIA [id number] [place] [address] [place] Sodium [Moles/Vol] 137 mmol/L Normal 136-144 [facility] Comment on above: Order Comment: Speci men Type: BLOOD SPECIMENOrdering Facility: [facility] Address: [address] [place] [address] Performed By: #### 1 751-7, 24200-8, , 2776-08 ####[facility] LABORATORYCLIA [id number] [place] [id number] [place] Urea nitrogen [Mass/Vol] 21 mg/dL Normal 9-24 [facility] Comment on above: Order Comment: Speci men Type: BLOOD SPECIMENOrdering Facility: [facility] Address: [address] [place] [address] Performed By: #### 1 751-7, 62712-3, , 2776-08 ####[facility] LABORATORYCLIA [id number] [place] [id number] [place] CASE MANAGEMon 09-03-2023 CASE MANAGEM Normal [facility] Magnesium SerPl-mCncon 09-03 Magnesium [Mass/Vol] 2.0 mg/dL Normal 1.7-2.3 [facility] Comment on above: Order Comment: Speci men Type: BLOOD SPECIMENOrdering Facility: [facility] Address: [place] [id number] Performed By: #### 1 751-7, 15651-3, , 2776-08 ####GE[facility] LABORATORYCLIA [id number] [place] [address] [place] NUTRITIONon 09-03-2023 NUTRITION Normal [facility]ate [facility] Phosphate [Mass/Vol] 3.7 mg/dL Normal 2.7-4.8 [facility] Comment on above: Order Comment: Speci men Type: BLOOD SPECIMENOrdering Facility: [facility] Address: [place] [address] Performed By: #### 1 751-7, 49587-2, , 2776-08 ####GE[facility] LABORATORYCLIA [id number] [place] [id number] [place] ALLIED HEALTHon 09-02-2023 ALLIED HEALTH Normal [facility] Albumin [employer] [facility] 024 Albumin [Mass/Vol] 2.8 g/dL Low 3.9-4.9 [facility] Comment on above: Order Comment: Speci men Type: BLOOD SPECIMENOrdering Facility: [facility] Address: [place] [address] Performed By: #### 1 751-7, 33712-2, , 2571-03 ####GE[facility] LABORATORYCLIA [id number] [place] [id number] [place] Basic metabolic 2000 panelon 09-02-2023 Anion gap [Moles/Vol] 6 mmol/L Low 9-18 [facility] Comment on above: Order Comment: Speci men Type: BLOOD SPECIMENOrdering Facility: [facility] Address: [place] [address] Performed By: #### 1 751-7, 63384-7, , 8 ####[facility] LABORATORYCLIA [id number] [place] [id number] [place] Calcium [Mass/Vol] 8.3 mg/dL Low 8.5-10.2 [facility] Comment on above: Order Comment: Speci men Type: BLOOD SPECIMENOrdering Facility: [facility] Address: [address] [place] [address] Performed By: #### 1 751-7, 09523-6, , 2571-03 ####[facility] LABORATORYCLIA [id number] [place] [id number] [place] Chloride [Moles/Vol] 100 mmol/L Normal 97-105 [facility] Comment on above: Order Comment: Speci men Type: BLOOD SPECIMENOrdering Facility: [facility] Address: [address] [place] [address] Performed By: #### 1 751-7, 04349-5, , 2571-03 ####[facility] LABORATORYCLIA [id number] [place] [id number] [place] CO2 [Moles/Vol] 34 mmol/L High 22-30 [facility] Comment on above: Order Comment: Speci men Type: BLOOD SPECIMENOrdering Facility: [facility] Address: [address] [place] [address] Performed By: #### 1 751-7, 59532-3, , 2571-03 ####[facility] LABORATORYCLIA [id number] [place] [address] [place] Creatinine [Mass/Vol] 0.88 mg/dL Normal 0.73-1.22 [facility] Comment on above: Order Comment: Speci men Type: BLOOD SPECIMENOrdering Facility: [facility] Address: [address] [place] [address] Performed By: #### 1 751-7, 66558-0, , 2571-03 ####[facility] LABORATORYCLIA [id number] [place] [id number] [place] Creatinine and Glomerular filtration rate.predicted panel (S/P/Bld) 94 mL/min/1.73m??? Normal >=60 [facility] Comment on above: Order Comment: Speci men Type: BLOOD SPECIMENOrdering Facility: [facility] Address: [address] [place] [address] Result Comment: Bailey mated Glomerular Filtration Rate [...] actual GFR. Performed By: #### 1 751-7, 47379-9, , 2571-03 ####[facility] LABORATORYCLIA [id number] [place] [id number] [place] Glucose [Mass/Vol] 95 mg/dL Normal 74-99 [facility] Comment on above: Order Comment: Arben suarez Type: BLOOD SPECIMENOrdering Facility: [facility] Address: [address] [place] [address] Result Comment: The [place] Diabetes Association (ADA) provides guidance for cutoff [...] Standards of Medical Care in Diabetes 2016, [place] Diabetes Association. Diabetes Care. 2016.39(Suppl 1). Performed By: #### 1 751-7, 41723-8, 79620-8, 2571-03 ####[facility] LABORATORYCLIA [id number] [place] [address] [place] Potassium [Moles/Vol] 3.4 mmol/L Low 3.7-5.1 [facility] Comment on above: Order Comment: Arben suarez Type: BLOOD SPECIMENOrdering Facility: [facility] Address: [address] [place] [address] Performed By: #### 1 751-7, 08969-9, 00178-7, 8 ####[facility] LABORATORYCLIA [id number] [place] [id number] [place] Sodium [Moles/Vol] 140 mmol/L Normal 136-144 [facility] Comment on above: Order Comment: Speci men Type: BLOOD SPECIMENOrdering Facility: [facility] Address: [address] [place] [address] Performed By: #### 1 751-7, 51866-9, , 8 ####[facility] LABORATORYCLIA [id number] [place] [id number] [place] Urea nitrogen [Mass/Vol] 24 mg/dL Normal 9-24 [facility] Comment on above: Order Comment: Speci men Type: BLOOD SPECIMENOrdering Facility: [facility] Address: [address] [place] [address] Performed By: #### 1 751-7, 53370-3, , 2571-03 ####[facility] LABORATORYCLIA [id number] [place] [id number] [place] CBC panel Auto (Bld)on 09-02 Erythrocyte distribution width (RBC) [Ratio] 12.4 % Normal 11.5-15.0 [facility] Comment on above: Order Comment: Speci men Type: BLOOD SPECIMENOrdering Facility: [facility] Address: [address] [place] [address] Performed By: #### 5 8410-2 ####L[facility] LABORATORYCLIA [id number] [place] [id number] [place] Hematocrit (Bld) [Volume fraction] 29.2 % Low 39.0-51.0 [facility] Comment on above: Order Comment: Speci men Type: BLOOD SPECIMENOrdering Facility: [facility] Address: [address] [place] [address] Performed By: #### 5 8410-2 ####[facility] LABORATORYCLIA [id number] [place] [id number] [place] Hemoglobin (Bld) [Mass/Vol] 9.8 g/dL Low 13.0-17.0 [facility] Comment on above: Order Comment: Speci men Type: BLOOD SPECIMENOrdering Facility: [facility] Address: [address] [place] [address] Performed By: #### 5 8410-2 ####[facility] LABORATORYCLIA [id number] [place] [address] [place] MCH (RBC) [Entitic mass] 29.3 pg Normal 26.0-34.0 [facility] Comment on above: Order Comment: Speci men Type: BLOOD SPECIMENOrdering Facility: [facility] Address: [address] [place] [address] Performed By: #### 5 8410-2 ####[facility] LABORATORYCLIA [id number] [address] [place] MCHC (RBC) [Mass/Vol] 33.6 g/dL Normal 30.5-36.0 [facility] Comment on above: Order Comment: Speci men Type: BLOOD SPECIMENOrdering Facility: [facility] Address: [address] [place] [address] Performed By: #### 5 8410-2 ####[facility] LABORATORYCLIA [id number] [address] MCV (RBC) [Entitic vol] 87.4 fL Normal 80.0-100.0 [facility] Comment on above: Order Comment: Speci men Type: BLOOD SPECIMENOrdering Facility: [facility] Address: [address] [place] [address] Performed By: #### 5 8410-2 ####[facility] LABORATORYCLIA [id number] [place] [address] [place] Nucleated RBC (Bld) [#/Vol] 10*3/uL Normal <0.01 [facility] Comment on above: Order Comment: Speci men Type: BLOOD SPECIMENOrdering Facility: [facility] Address: [address] [place] [address] Performed By: #### 5 8410-2 ####[facility] LABORATORYCLIA [id number] [place] [address] [place] Platelet mean volume (Bld) [Entitic vol] 11.2 fL Normal 9.0-12.7 [facility] Comment on above: Order Comment: Speci men Type: BLOOD SPECIMENOrdering Facility: [facility] Address: [address] [place] [address] Performed By: #### 5 8410-2 ####[facility] LABORATORYCLIA [id number] [place] [address] [place] Platelets (Bld) [#/Vol] 229 10*3/uL Normal 150-400 [facility] Comment on above: Order Comment: Speci men Type: BLOOD SPECIMENOrdering Facility: [facility] Address: [address] [place] [address] Performed By: #### 5 8410-2 ####[facility] LABORATORYCLIA [id number] [place] [address] [place] RBC (Bld) [#/Vol] 3.34 10*6/uL Low 4.20-6.00 [facility] Comment on above: Order Comment: Speci men Type: BLOOD SPECIMENOrdering Facility: [facility] Address: [address] [place] [address] Performed By: #### 5 8410-2 ####[facility] LABORATORYCLIA [id number] [place] [address] [place] WBC (Bld) [#/Vol] 5.51 10*3/uL Normal 3.70-11.00 [facility] Comment on above: Order Comment: Speci men Type: BLOOD SPECIMENOrdering Facility: [facility] Address: [address] [place] [address] Performed By: #### 5 8410-2 ####[facility] LABORATORYCLIA [id number] [place] [id number] [place] PANCREAS W IVCONon 2023 CT PANCREAS W IVCON Normal [facility] Magnesium SerPl-mCncon 09-02 Magnesium [Mass/Vol] 1.9 mg/dL Normal 1.7-2.3 [facility] Comment on above: Order Comment: Speci men Type: BLOOD SPECIMENOrdering Facility: [facility] Address: [place] [address] Performed By: #### 1 751-7, 49513-0, , 2571-03 ####[facility] LABORATORYCLIA [id number] [place] [id number] [place] NUTRITIONon 09-02-2023 NUTRITION Normal [facility] Phosphate SerPl-mCncon 09-02 Phosphate [Mass/Vol] 2.5 mg/dL Low 2.7-4.8 [facility] Comment on above: Order Comment: Speci men Type: BLOOD SPECIMENOrdering Facility: [facility] Address: [place] [address] Performed By: #### 2 777-1 ####[facility] LABORATORYCLIA [id number] [place] [id number] [facility] Trigl SerPl-mCncon Triglyceride [Mass/Vol] 70 mg/dL Normal <150 [facility] Comment on above: Order Comment: Speci men Type: BLOOD SPECIMENOrdering Facility: [facility] Address: [place] [address] Result Comment: <150 mg/dL, Normal 150-199 mg/dL, Borderline high 200-499 mg/dL, High>499 mg/dL, Very highReference:1. National Cholesterol Education Program ATP III Guideline At-A-Glance Quick Desk Reference: National Heart, Lung, and Blood [place]. National Institutes of Health. 2001: NIH Publication No. 01-3305. Performed By: #### 1 751-7, 59506-0, , 2571-03 ####[facility] LABORATORYCLIA [id number] [place] [id number] [place] [facility] Triglyceride [Mass/Vol]on FASTING TIME n/a Normal [facility] Comment on above: Order Comment: Speci men Type: BLOOD SPECIMENOrdering Facility: [facility] Address: [place] [address] Performed By: #### 1 751-7, 64527-3, 83600-8, 2571-8 ####[facility] LABORATORYCLIA [id number] [place] [id number] [place] Basic metabolic 2000 panelon 09-01-2023 Anion gap [Moles/Vol] 10 mmol/L Normal 9-18 [facility] Comment on above: Order Comment: Speci men Type: BLOOD SPECIMENOrdering Facility: [facility] Address: [address] [place] [address] Performed By: #### 1 9123-9, 48459-4, 2777-1, 72698-4 ####[facility] LABORATORYCLIA [id number] [place] [id number] [place] Calcium [Mass/Vol] 8.4 mg/dL Low 8.5-10.2 [facility] Comment on above: Order Comment: Speci men Type: BLOOD SPECIMENOrdering Facility: [facility] Address: [address] [place] [address] Performed By: #### 1 9123-9, 27656-3, 2777-1, 32011-7 ####GEOVANNA LABORATORYCLIA [id number] [place] [id number] [place] Chloride [Moles/Vol] 102 mmol/L Normal 97-105 [facility] Comment on above: Order Comment: Speci men Type: BLOOD SPECIMENOrdering Facility: [facility] Address: [address] [place] [address] Performed By: #### 1 9123-9, 63695-9, 2777-1, 17382-5 ####GEOVANNA LABORATORYCLIA [id number] [place] [address] [place] CO2 [Moles/Vol] 29 mmol/L Normal 22-30 [facility] Comment on above: Order Comment: Speci men Type: BLOOD SPECIMENOrdering Facility: [facility] Address: [address] [place] [address] Performed By: #### 1 9123-9, 47813-9, 2777-1, 59653-7 ####[facility] LABORATORYCLIA [id number] [place] [address] [place] Creatinine [Mass/Vol] 0.93 mg/dL Normal 0.73-1.22 [facility] Comment on above: Order Comment: Arben suarez Type: BLOOD SPECIMENOrdering Facility: [facility] Address: [address] [place] [address] Performed By: #### 1 9123-9, 33332-7, 2777-1, 81336-4 ####L[facility] LABORATORYCLIA [id number] [place] [address] [place] Creatinine and Glomerular filtration rate.predicted panel (S/P/Bld) 89 mL/min/1.73m??? Normal >=60 [facility] Comment on above: Order Comment: [facility] Type: BLOOD SPECIMENOrdering Facility: [facility] Address: [address] [place] [address] Result Comment: Bailey mated Glomerular Filtration Rate [...] actual GFR. Performed By: #### 1 9123-9, 95134-0, 2777-1, 49553-9 ####L[facility] LABORATORYCLIA [id number] [place] [id number] [place] Glucose [Mass/Vol] 110 mg/dL High 74-99 [facility] Comment on above: Order Comment: Miabrooks suarez Type: BLOOD SPECIMENOrdering Facility: [facility] Address: [address] [place] [address] Result Comment: The [place] Diabetes Association (ADA) provides guidance for cutoff [...] Standards of Medical Care in Diabetes 2016, [place] Diabetes Association. Diabetes Care. 2016.39(Suppl 1). Performed By: #### 1 9123-9, 10861-6, 2777-1, 36948-0 ####LOR[facility] LABORATORYCLIA [id number] [place] [id number] [place] Potassium [Moles/Vol] 3.3 mmol/L Low 3.7-5.1 [facility] Comment on above: Order Comment: Arben suarez Type: BLOOD SPECIMENOrdering Facility: [facility] Address: [address] [place] [address] Performed By: #### 1 9123-9, 61301-3, 2777-1, 02893-5 ####L[facility] LABORATORYCLIA [id number] [place] [address] [place] Sodium [Moles/Vol] 141 mmol/L Normal 136-144 [facility] Comment on above: Order Comment: Arben suarez Type: BLOOD SPECIMENOrdering Facility: [facility] Address: [address] [place] [address] Performed By: #### 1 9123-9, 99857-0, 2777-1, 45732-1 ####L[facility] LABORATORYCLIA [id number] [place] [id number] [place] Urea nitrogen [Mass/Vol] 27 mg/dL High 9-24 [facility] Comment on above: Order Comment: Arben suarez Type: BLOOD SPECIMENOrdering Facility: [facility] Address: [address] [place] [address] Performed By: #### 1 9123-9, 67124-0, 277-1, 71244-1 ####LOR[facility] LABORATORYCLIA [id number] [place] [id number] [place] CBC W Auto Differential pane l (Bld)on 09-01-2023 Basophils (Bld) [#/Vol] 0.04 10*3/uL Normal <0.11 [facility] Comment on above: Order Comment: Speci men Type: BLOOD SPECIMENOrdering Facility: [facility] Address: [address] [place] [address] Performed By: #### 5 7021-8 ####GE[facility] LABORATORYCLIA [id number] [place] [address] [place] Basophils/100 WBC (Bld) 0.8 % Normal [facility] Comment on above: Order Comment: Speci men Type: BLOOD SPECIMENOrdering Facility: [facility] Address: [address] [place] [address] Performed By: #### 5 7021-8 ####[facility] LABORATORYCLIA [id number] [address] [place] Differential cell count method Nom (Bld) Auto Normal [facility] Comment on above: Order Comment: Speci men Type: BLOOD SPECIMENOrdering Facility: [facility] Address: [address] [place] [address] Performed By: #### 5 7021-8 ####[facility] LABORATORYCLIA [id number] [place] [address] [place] Eosinophils (Bld) [#/Vol] 0.17 10*3/uL Normal <0.46 [facility] Comment on above: Order Comment: Speci men Type: BLOOD SPECIMENOrdering Facility: [facility] Address: [address] [place] [address] Performed By: #### 5 7021-8 ####[facility] LABORATORYCLIA [id number] [address] [place] Eosinophils/100 WBC (Bld) 3.5 % Normal [facility] Comment on above: Order Comment: Speci men Type: BLOOD SPECIMENOrdering Facility: [facility] Address: [address] [place] [address] Performed By: #### 5 7021-8 ####[facility] LABORATORYCLIA [id number] [place] [address] [place] Erythrocyte distribution width (RBC) [Ratio] 12.5 % Normal 11.5-15.0 [facility] Comment on above: Order Comment: Speci men Type: BLOOD SPECIMENOrdering Facility: [facility] Address: [address] [place] [address] Performed By: #### 5 7021-8 ####GE[facility] LABORATORYCLIA [id number] [place] [address] [place] Hematocrit (Bld) [Volume fraction] 28.8 % Low 39.0-51.0 [facility] Comment on above: Order Comment: Speci men Type: BLOOD SPECIMENOrdering Facility: [facility] Address: [address] [place] [address] Performed By: #### 5 7021-8 ####GE[facility] LABORATORYCLIA [id number] [place] [address] [place] Hemoglobin (Bld) [Mass/Vol] 9.9 g/dL Low 13.0-17.0 [facility] Comment on above: Order Comment: Speci men Type: BLOOD SPECIMENOrdering Facility: [facility] Address: [address] [place] [address] Performed By: #### 5 7021-8 ####GE[facility] LABORATORYCLIA [id number] [place] [address] [place] Immature granulocytes (Bld) [#/Vol] 10*3/uL Normal <0.10 [facility] Comment on above: Order Comment: Speci men Type: BLOOD SPECIMENOrdering Facility: [facility] Address: [address] [place] [address] Performed By: #### 5 7021-8 ####GE[facility] LABORATORYCLIA [id number] [place] [address] [place] Immature granulocytes/100 WBC (Bld) 0.4 % Normal [facility] Comment on above: Order Comment: Speci men Type: BLOOD SPECIMENOrdering Facility: [facility] Address: [address] [place] [address] Performed By: #### 5 7021-8 ####GE[facility] LABORATORYCLIA [id number] [place] [address] [place] Lymphocytes (Bld) [#/Vol] 1.10 10*3/uL Normal 1.00-4.00 [facility] Comment on above: Order Comment: Speci men Type: BLOOD SPECIMENOrdering Facility: [facility] Address: [address] [place] [address] Performed By: #### 5 7021-8 ####GE[facility] LABORATORYCLIA [id number] [place] [id number] [place] Lymphocytes/100 WBC (Bld) 22.7 % Normal [facility] Comment on above: Order Comment: Speci men Type: BLOOD SPECIMENOrdering Facility: [facility] Address: [address] [place] [address] Performed By: #### 5 7021-8 ####GE[facility] LABORATORYCLIA [id number] [place] [address] [place] MCH (RBC) [Entitic mass] 29.6 pg Normal 26.0-34.0 [facility] Comment on above: Order Comment: Speci men Type: BLOOD SPECIMENOrdering Facility: [facility] Address: [address] [place] [address] Performed By: #### 5 7021-8 ####GE[facility] LABORATORYCLIA [id number] [place] [address] [place] MCHC (RBC) [Mass/Vol] 34.4 g/dL Normal 30.5-36.0 [facility] Comment on above: Order Comment: Speci men Type: BLOOD SPECIMENOrdering Facility: [facility] Address: [address] [place] [address] Performed By: #### 5 7021-8 ####GE[facility] LABORATORYCLIA [id number] [place] [id number] [place] MCV (RBC) [Entitic vol] 86.0 fL Normal 80.0-100.0 [facility] Comment on above: Order Comment: Speci men Type: BLOOD SPECIMENOrdering Facility: [facility] Address: [address] [place] [address] Performed By: #### 5 7021-8 ####GE[facility] LABORATORYCLIA [id number] [place] [id number] [place] Monocytes (Bld) [#/Vol] 0.86 10*3/uL Normal <0.87 [facility] Comment on above: Order Comment: Speci men Type: BLOOD SPECIMENOrdering Facility: [facility] Address: [address] [place] [address] Performed By: #### 5 7021-8 ####GE[facility] LABORATORYCLIA [id number] [place] [id number] [place] Monocytes/100 WBC (Bld) 17.8 % Normal [facility] Comment on above: Order Comment: Speci men Type: BLOOD SPECIMENOrdering Facility: [facility] Address: [address] [place] [address] Performed By: #### 5 7021-8 ####[facility] LABORATORYCLIA [id number] [place] [address] [place] Neutrophils (Bld) [#/Vol] 2.65 10*3/uL Normal 1.45-7.50 [facility] Comment on above: Order Comment: Speci men Type: BLOOD SPECIMENOrdering Facility: [facility] Address: [address] [place] [address] Performed By: #### 5 7021-8 ####[facility] LABORATORYCLIA [id number] [place] [id number] [place] Neutrophils/100 WBC (Bld) 54.8 % Normal [facility] Comment on above: Order Comment: Speci men Type: BLOOD SPECIMENOrdering Facility: [facility] Address: [address] [place] [address] Performed By: #### 5 7021-8 ####[facility] LABORATORYCLIA [id number] [place] [id number] [place] Nucleated RBC (Bld) [#/Vol] 10*3/uL Normal <0.01 [facility] Comment on above: Order Comment: Speci men Type: BLOOD SPECIMENOrdering Facility: [facility] Address: [address] [place] [address] Performed By: #### 5 7021-8 ####GE[facility] LABORATORYCLIA [id number] [place] [id number] [place] Nucleated RBC/100 WBC (Bld) [Ratio] 0.0 /100 WBC Normal [facility] Comment on above: Order Comment: Speci men Type: BLOOD SPECIMENOrdering Facility: [facility] Address: [address] [place] [address] Performed By: #### 5 7021-8 ####[facility] LABORATORYCLIA [id number] [place] [id number] [place] Platelet mean volume (Bld) [Entitic vol] 11.3 fL Normal 9.0-12.7 [facility] Comment on above: Order Comment: Speci men Type: BLOOD SPECIMENOrdering Facility: [facility] Address: [address] [place] [address] Performed By: #### 5 7021-8 ####[facility] LABORATORYCLIA [id number] [place] [id number] [place] Platelets (Bld) [#/Vol] 238 10*3/uL Normal 150-400 [facility] Comment on above: Order Comment: Speci men Type: BLOOD SPECIMENOrdering Facility: [facility] Address: [address] [place] [address] Performed By: #### 5 7021-8 ####[facility] LABORATORYCLIA [id number] [place] [address] [place] RBC (Bld) [#/Vol] 3.35 10*6/uL Low 4.20-6.00 [facility] Comment on above: Order Comment: Speci men Type: BLOOD SPECIMENOrdering Facility: [facility] Address: [address] [place] [address] Performed By: #### 5 7021-8 ####[facility] LABORATORYCLIA [id number] [place] [id number] [place] WBC (Bld) [#/Vol] 4.84 10*3/uL Normal 3.70-11.00 [facility] Comment on above: Order Comment: Speci men Type: BLOOD SPECIMENOrdering Facility: [facility] Address: [address] [place] [address] Performed By: #### 5 7021-8 ####L[facility] LABORATORYCLIA [id number] [place] [id number] [place] Hepatic function 2000 panelo n 09-01-2023 Albumin [Mass/Vol] 2.8 g/dL Low 3.9-4.9 [facility] Comment on above: Order Comment: Speci men Type: BLOOD SPECIMENOrdering Facility: [facility] Address: [address] [place] [address] Performed By: #### 1 9123-9, 10068-7, 2777-1, 55287-8 ####[facility] LABORATORYCLIA [id number] [place] [id number] [place] ALP [Catalytic activity/Vol] 107 U/L Normal 38-113 [facility] Comment on above: Order Comment: Speci men Type: BLOOD SPECIMENOrdering Facility: [facility] Address: [address] [place] [address] Performed By: #### 1 9123-9, 65892-5, 2777-1, 91543-3 ####[facility] LABORATORYCLIA [id number] [place] [id number] [place] ALT [Catalytic activity/Vol] 21 U/L Normal 10-54 [facility] Comment on above: Order Comment: Speci men Type: BLOOD SPECIMENOrdering Facility: [facility] Address: [address] [place] [address] Performed By: #### 1 9123-9, 22235-7, 2777-1, 05891-7 ####[facility] LABORATORYCLIA [id number] [place] [address] [place] AST [Catalytic activity/Vol] 14 U/L Normal 14-40 [facility] Comment on above: Order Comment: Speci men Type: BLOOD SPECIMENOrdering Facility: [facility] Address: [address] [facility] [place] [address] Performed By: #### 1 9123-9, 22236-6, 2777-1, 49226-5 ####[facility] LABORATORYCLIA [id number] [place] [id number] [place] Bilirubin [Mass/Vol] 0.4 mg/dL Normal 0.2-1.3 [facility] Comment on above: Order Comment: Speci men Type: BLOOD SPECIMENOrdering Facility: [facility] Address: [address] [place] [address] Performed By: #### 1 9123-9, 91393-8, 2777-1, 28409-0 ####[facility] LABORATORYCLIA [id number] [place] [id number] [facility] Bilirubin.conjugated [Mass/Vol] mg/dL Normal <0.2 [facility] Comment on above: Order Comment: Speci men Type: BLOOD SPECIMENOrdering Facility: [facility] Address: [address] [place] [address] Performed By: #### 1 9123-9, 99088-4, 2777-1, 78852-1 ####[facility] LABORATORYCLIA [id number] [place] [id number] [facility] Protein [Mass/Vol] 5.4 g/dL Low 6.3-8.0 [facility] Comment on above: Order Comment: Speci men Type: BLOOD SPECIMENOrdering Facility: [facility] Address: [address] [place] [address] Performed By: #### 1 9123-9, 67479-5, 2777-1, 94598-0 ####GE[facility] LABORATORYCLIA [id number] [place] [id number] [place] Magnesium SerPl-mCncon 09-01 Magnesium [Mass/Vol] 1.8 mg/dL Normal 1.7-2.3 [facility] Comment on above: Order Comment: Speci men Type: BLOOD SPECIMENOrdering Facility: [facility] Address: [address] [place] [address] Performed By: #### 1 9123-9, 68201-4, 2777-1, 39931-4 ####GE[facility] LABORATORYCLIA [id number] [place] [id number] [place] NURSING PROGon 09-01-2023 NURSING PROG Normal [facility] NUTRITIONon 09-01-2023 NUTRITION Normal [facility] Phosphate SerPl-mCncon 09-01 Phosphate [Mass/Vol] 2.8 mg/dL Normal 2.7-4.8 [facility] Comment on above: Order Comment: Speci men Type: BLOOD SPECIMENOrdering Facility: [facility] Address: [address] [place] [id number] Performed By: #### 1 9123-9, 11721-7, 2777-1, 48149-0 ####[facility] LABORATORYCLIA [id number] [place] [address] [place] Albumin SerPl-mCncon 024 Albumin [Mass/Vol] 2.9 g/dL Low 3.9-4.9 [facility] Comment on above: Order Comment: Speci men Type: BLOOD SPECIMENOrdering Facility: [facility] Address: [place] [address] Performed By: #### 2 777-1, 14136-9, 1751-02, ####L[facility] LABORATORYCLIA [id number] [place] [address] [place] Basic metabolic 2000 panelon 08-31-2023 Anion gap [Moles/Vol] 10 mmol/L Normal 9-18 [facility] Comment on above: Order Comment: Speci men Type: BLOOD SPECIMENOrdering Facility: [facility] Address: [place] [address] Performed By: #### 2 777-1, 32572-9, 1751-02, ####[facility] LABORATORYCLIA [id number] [place] [address] [place] Calcium [Mass/Vol] 8.3 mg/dL Low 8.5-10.2 [facility] Comment on above: Order Comment: Speci men Type: BLOOD SPECIMENOrdering Facility: [facility] Address: [address] [place] [id number] Performed By: #### 2 777-1, 07711-4, 1751-02, ####L[facility] LABORATORYCLIA [id number] [place] [address] [place] Chloride [Moles/Vol] 101 mmol/L Normal 97-105 [facility] Comment on above: Order Comment: Speci men Type: BLOOD SPECIMENOrdering Facility: [facility] Address: [address] [place] [address] Performed By: #### 2 777-1, 51097-2, 1751-02, ####L[facility] LABORATORYCLIA [id number] [place] [address] [place] CO2 [Moles/Vol] 23 mmol/L Normal 22-30 [facility] Comment on above: Order Comment: Speci men Type: BLOOD SPECIMENOrdering Facility: [facility] Address: [address] [place] [address] Performed By: #### 2 777-1, 71025-9, 1751-02, ####L[facility] LABORATORYCLIA [id number] [place] [id number] [place] Creatinine [Mass/Vol] 1.22 mg/dL Normal 0.73-1.22 [facility] Comment on above: Order Comment: Speci men Type: BLOOD SPECIMENOrdering Facility: [facility] Address: [address] [place] [address] Performed By: #### 2 777-1, 51395-7, 1751-02, ####LOR[facility] LABORATORYCLIA [id number] [place] [id number] [place] Creatinine and Glomerular filtration rate.predicted panel (S/P/Bld) 65 mL/min/1.73m??? Normal >=60 [facility] Comment on above: Order Comment: Speci men Type: BLOOD SPECIMENOrdering Facility: [facility] Address: [address] [place] [address] Result Comment: Bailey mated Glomerular Filtration Rate [...] actual GFR. Performed By: #### 2 777-1, 55227-6, 1751-02, ####[facility] LABORATORYCLIA [id number] [place] [address] [place] Glucose [Mass/Vol] 100 mg/dL High 74-99 [facility] Comment on above: Order Comment: Arben suarez Type: BLOOD SPECIMENOrdering Facility: [facility] Address: [address] [place] [address] Result Comment: The [place] Diabetes Association (ADA) provides guidance for cutoff [...] Standards of Medical Care in Diabetes 2016, [place] [employer]. Diabetes Care. 2016.39(Suppl 1). Performed By: #### 2 777-1, 56179-8, 1751-02, ####[facility] LABORATORYCLIA [id number] [place] [id number] [place] Potassium [Moles/Vol] 3.5 mmol/L Low 3.7-5.1 [facility] Comment on above: Order Comment: Arben suarez Type: BLOOD SPECIMENOrdering Facility: [facility] Address: [address] [place] [id number] Performed By: #### 2 777-1, 66909-9, 1751-02, ####GE[facility] LABORATORYCLIA [id number] [place] [address] [place] Sodium [Moles/Vol] 134 mmol/L Low 136-144 [facility] Comment on above: Order Comment: Speci men Type: BLOOD SPECIMENOrdering Facility: [facility] Address: [place] [address] Performed By: #### 2 777-1, 73475-1, 1751-02, ####GE[facility] LABORATORYCLIA [id number] [place] [id number] [place] Urea nitrogen [Mass/Vol] 39 mg/dL High 9-24 [facility] Comment on above: Order Comment: Speci men Type: BLOOD SPECIMENOrdering Facility: [facility] Address: [place] [address] Performed By: #### 2 777-1, 60534-8, 1751-02, ####[facility] LABORATORYCLIA [id number] [place] [id number] [place] CASE MANAGEMon 08-31-2023 CASE MANAGEM Normal [facility] Magnesium SerPl-mCncon 08-31 Magnesium [Mass/Vol] 1.7 mg/dL Normal 1.7-2.3 [facility] Comment on above: Order Comment: Speci men Type: BLOOD SPECIMENOrdering Facility: [facility] Address: [place] [address] Performed By: #### 2 777-1, 90089-9, 1751-02, ####[facility] LABORATORYCLIA [id number] [place] [id number] [place] Phosphate SerPl-mCncon 08-31 Phosphate [Mass/Vol] 2.6 mg/dL Low 2.7-4.8 [facility] Comment on above: Order Comment: Speci men Type: BLOOD SPECIMENOrdering Facility: [facility] Address: [place] [address] Performed By: #### 2 777-1, 36559-0, 1751-02, ####[facility] LABORATORYCLIA [id number] [place] [id number] [place] Albumin SerPl-mCncon 024 Albumin [Mass/Vol] 3.1 g/dL Low 3.9-4.9 [facility] Comment on above: Order Comment: Speci men Type: BLOOD SPECIMENOrdering Facility: [facility] Address: [address] [place] [id number] Performed By: #### 2 4321-2, , 1751-02, 2776-08 ####GE[facility] LABORATORYCLIA [id number] [place] [id number] [place] Basic metabolic 2000 panelon 08-30-2023 Anion gap [Moles/Vol] 11 mmol/L Normal 9-18 [facility] Comment on above: Order Comment: Speci men Type: BLOOD SPECIMENOrdering Facility: [facility] Address: [place] [address] Performed By: #### 2 4321-2, , 1751-02, 2776-08 ####GE[facility] LABORATORYCLIA [id number] [place] [id number] [place] Calcium [Mass/Vol] 8.1 mg/dL Low 8.5-10.2 [facility] Comment on above: Order Comment: Speci men Type: BLOOD SPECIMENOrdering Facility: [facility] Address: [address] [place] [id number] Performed By: #### 2 4321-2, , 1751-02, 2776-08 ####GE[facility] LABORATORYCLIA [id number] [place] [id number] [place] Chloride [Moles/Vol] 106 mmol/L High 97-105 [facility] Comment on above: Order Comment: Speci men Type: BLOOD SPECIMENOrdering Facility: [facility] Address: [address] [facility] [place] [place] [address] Performed By: #### 2 4321-2, , 1751-02, 2776-08 ####GEOVAN[facility] LABORATORYCLIA [id number] [place] [address] [place] CO2 [Moles/Vol] 17 mmol/L Low 22-30 [facility] Comment on above: Order Comment: Speci men Type: BLOOD SPECIMENOrdering Facility: [facility] Address: [address] [place] [address] Performed By: #### 2 4321-2, , 1751-02, 2776-08 ####[facility] LABORATORYCLIA [id number] [place] [id number] [place] Creatinine [Mass/Vol] 1.39 mg/dL High 0.73-1.22 [facility] Comment on above: Order Comment: Speci men Type: BLOOD SPECIMENOrdering Facility: [facility] Address: [address] [place] [address] Performed By: #### 2 4321-2, , 1751-02, 2776-08 ####[facility] LABORATORYCLIA [id number] [place] [id number] [place] Creatinine and Glomerular filtration rate.predicted panel (S/P/Bld) 55 mL/min/1.73m??? Low >=60 [facility] Comment on above: Order Comment: Arben suarez Type: BLOOD SPECIMENOrdering Facility: [facility] Address: [address] [place] [address] Result Comment: Bailey mated Glomerular Filtration Rate [...] actual GFR. Performed By: #### 2 4321-2, , 1751-02, 2776-08 ####[facility]ORATORYCLIA [id number] [place] [id number] [place] Glucose [Mass/Vol] 107 mg/dL High 74-99 [facility] Comment on above: Order Comment: Arben suarez Type: BLOOD SPECIMENOrdering Facility: [facility] Address: [address] [place] [address] Result Comment: The [place] [employer] (ADA) provides guidance for cutoff [...] Standards of Medical Care in Diabetes 2016, [place] [employer]. Diabetes Care. 2016.39(Suppl 1). Performed By: #### 2 4321-2, , 1751-02, 2776-08 ####[facility] LABORATORYCLIA [id number] [place] [id number] [place] Potassium [Moles/Vol] 3.6 mmol/L Low 3.7-5.1 [facility] Comment on above: Order Comment: Speci men Type: BLOOD SPECIMENOrdering Facility: [facility] Address: [address] [place] [address] Performed By: #### 2 4321-2, , 1751-02, 2776-08 ####[facility] LABORATORYCLIA [id number] [place] [id number] [place] Sodium [Moles/Vol] 134 mmol/L Low 136-144 [facility] Comment on above: Order Comment: Speci men Type: BLOOD SPECIMENOrdering Facility: [facility] Address: [address] [place] [address] Performed By: #### 2 4321-2, , 1751-02, 2776-08 ####[facility] LABORATORYCLIA [id number] [place] [id number] [place] Urea nitrogen [Mass/Vol] 46 mg/dL High 9-24 [facility] Comment on above: Order Comment: Speci men Type: BLOOD SPECIMENOrdering Facility: [facility] Address: [address] [place] [address] Performed By: #### 2 4321-2, , 1751-02, 2776-08 ####[facility] LABORATORYCLIA [id number] [place] [id number] [facility] [place] CBC panel Auto (Bld)on 08-30 Erythrocyte distribution width (RBC) [Ratio] 12.4 % Normal 11.5-15.0 [facility] Comment on above: Order Comment: Speci men Type: BLOOD SPECIMENOrdering Facility: [facility] Address: [address] [place] [address] Performed By: #### 5 8410-2 ####[facility] LABORATORYCLIA [id number] [address] Hematocrit (Bld) [Volume fraction] 32.1 % Low 39.0-51.0 [facility] Comment on above: Order Comment: Speci men Type: BLOOD SPECIMENOrdering Facility: [facility] Address: [address] [place] [address] Performed By: #### 5 8410-2 ####[facility] LABORATORYCLIA [id number] [address] Hemoglobin (Bld) [Mass/Vol] 11.0 g/dL Low 13.0-17.0 [facility] Comment on above: Order Comment: Speci men Type: BLOOD SPECIMENOrdering Facility: [facility] Address: [address] [place] [address] Performed By: #### 5 8410-2 ####[facility] LABORATORYCLIA [id number] [address] [place] MCH (RBC) [Entitic mass] 29.3 pg Normal 26.0-34.0 [facility] Comment on above: Order Comment: Speci men Type: BLOOD SPECIMENOrdering Facility: [facility] Address: [address] [place] [address] Performed By: #### 5 8410-2 ####[facility] LABORATORYCLIA [id number] [address] [place] MCHC (RBC) [Mass/Vol] 34.3 g/dL Normal 30.5-36.0 [facility] Comment on above: Order Comment: Speci men Type: BLOOD SPECIMENOrdering Facility: [facility] Address: [address] [place] [address] Performed By: #### 5 8410-2 ####[facility] LABORATORYCLIA [id number] [place] [id number] [place] MCV (RBC) [Entitic vol] 85.6 fL Normal 80.0-100.0 [facility] Comment on above: Order Comment: Speci men Type: BLOOD SPECIMENOrdering Facility: [facility] Address: [address] [place] [address] Performed By: #### 5 8410-2 ####[facility] LABORATORYCLIA [id number] [place] [address] [place] Nucleated RBC (Bld) [#/Vol] 10*3/uL Normal <0.01 [facility] Comment on above: Order Comment: Speci men Type: BLOOD SPECIMENOrdering Facility: [facility] Address: [address] [place] [address] Performed By: #### 5 8410-2 ####[facility] LABORATORYCLIA [id number] [place] [address] [place] Platelet mean volume (Bld) [Entitic vol] 10.6 fL Normal 9.0-12.7 [facility] Comment on above: Order Comment: Speci men Type: BLOOD SPECIMENOrdering Facility: [facility] Address: [address] [place] [address] Performed By: #### 5 8410-2 ####[facility] LABORATORYCLIA [id number] [place] [address] [place] Platelets (Bld) [#/Vol] 306 10*3/uL Normal 150-400 [facility] Comment on above: Order Comment: Speci men Type: BLOOD SPECIMENOrdering Facility: [facility] Address: [address] [place] [address] Performed By: #### 5 8410-2 ####[facility] LABORATORYCLIA [id number] [place] [address] [place] RBC (Bld) [#/Vol] 3.75 10*6/uL Low 4.20-6.00 [facility] Comment on above: Order Comment: Speci men Type: BLOOD SPECIMENOrdering Facility: [facility] Address: [place] [address] Performed By: #### 5 8410-2 ####[facility] LABORATORYCLIA [id number] [place] [id number] [place] WBC (Bld) [#/Vol] 6.84 10*3/uL Normal 3.70-11.00 [facility] Comment on above: Order Comment: Speci men Type: BLOOD SPECIMENOrdering Facility: [facility] Address: [place] [address] Performed By: #### 5 8410-2 ####[facility] LABORATORYCLIA [id number] [place] [id number] [place] CONSULT PROGon 08-30-2023 CONSULT PROG [facility] Lactate (Bld) [Moles/Vol]on 08-30-2023 Lactate [Moles/Vol] 0.6 mmol/L Normal 0.5-2.2 [facility] Comment on above: Order Comment: Speci men Type: BLOOD SPECIMENOrdering Facility: [facility] Address: [place] [address] Performed By: #### 3 2693-4 ####[facility] LABORATORYCLIA [id number] [place] [id number] [place] Magnesium SerPl-mCncon 08-30 Magnesium [Mass/Vol] 2.0 mg/dL Normal 1.7-2.3 [facility] Comment on above: Order Comment: Speci men Type: BLOOD SPECIMENOrdering Facility: [facility] Address: [place] [address] Performed By: #### 2 4321-2, 76249-8, 1751-7, 2777-1 ####[facility] LABORATORYCLIA [id number] [place] [id number] [place] NURSING PROGon 08-30-2023 NURSING PROG Normal [facility] NUTRITIONon 08-30-2023 NUTRITION Normal [facility] Phosphate SerPl-mCncon 08-30 Phosphate [Mass/Vol] 3.1 mg/dL Normal 2.7-4.8 [facility] Comment on above: Order Comment: Speci men Type: BLOOD SPECIMENOrdering Facility: [facility] Address: [address] [place] [address] Performed By: #### 2 4321-2, 16410-5, 1751-7, 2777-1 ####[facility] LABORATORYCLIA [id number] [place] [address] [place] Basic metabolic 2000 panelon 08-29-2023 Anion gap [Moles/Vol] 18 mmol/L Normal 9-18 [facility] Comment on above: Order Comment: Speci men Type: BLOOD SPECIMENOrdering Facility: [facility] Address: [address] [place] [address] Performed By: #### 2 4321-2, 2777-1, 83948-8, ####[facility] LABORATORYCLIA [id number] [place] [id number] [place] Calcium [Mass/Vol] 9.0 mg/dL Normal 8.5-10.2 [facility] Comment on above: Order Comment: Speci men Type: BLOOD SPECIMENOrdering Facility: [facility] Address: [address] [place] [address] Performed By: #### 2 4321-2, 2777-1, 97454-3, 55517-9 ####[facility] LABORATORYCLIA [id number] [place] [id number] [place] Chloride [Moles/Vol] 107 mmol/L High 97-105 [facility] Comment on above: Order Comment: Speci men Type: BLOOD SPECIMENOrdering Facility: [facility] Address: [place] [address] Performed By: #### 2 4321-2, 2777-1, 00165-6, 97136-8 ####[facility] LABORATORYCLIA [id number] [place] [address] [place] CO2 [Moles/Vol] 8 mmol/L Low 22-30 [facility] Comment on above: Order Comment: Speci men Type: BLOOD SPECIMENOrdering Facility: [facility] Address: [address] [place] [address] Performed By: #### 2 4321-2, 2777-1, 42752-0, ####[facility] LABORATORYCLIA [id number] [place] [address] [place] Creatinine [Mass/Vol] 1.98 mg/dL High 0.73-1.22 [facility] Comment on above: Order Comment: Speci men Type: BLOOD SPECIMENOrdering Facility: [facility] Address: [address] [place] [address] Performed By: #### 2 4321-2, 2777-1, 10498-8, ####[facility] LABORATORYCLIA [id number] [place] [id number] [place] Creatinine and Glomerular filtration rate.predicted panel (S/P/Bld) 36 mL/min/1.73m??? Low >=60 [facility] Comment on above: Order Comment: Speci [facility] Type: BLOOD SPECIMENOrdering Facility: [facility] Address: [address] [place] [address] Result Comment: Bailey mated Glomerular Filtration Rate [...] GFR. Performed By: #### 2 4321-2, 2777-1, 17261-2, 09877-4 ####[facility] LABORATORYCLIA [id number] [place] [id number] [place] Glucose [Mass/Vol] 134 mg/dL High 74-99 [facility] Comment on above: Order Comment: Speci men Type: BLOOD SPECIMENOrdering Facility: [facility] Address: [address] [place] [address] Result Comment: The [place] Diabetes Association (ADA) provides guidance for cutoff [...] Standards of Medical Care in Diabetes 2016, [place] [employer]. Diabetes Care. 2016.39(Suppl 1). Performed By: #### 2 4321-2, 2777-1, 13086-0, ####[facility] LABORATORYCLIA [id number] [place] [address] [place] Potassium [Moles/Vol] 4.9 mmol/L Normal 3.7-5.1 [facility] Comment on above: Order Comment: Speci men Type: BLOOD SPECIMENOrdering Facility: [facility] Address: [address] [place] [address] Performed By: #### 2 4321-2, 2777-1, 70768-5, ####[facility] LABORATORYCLIA [id number] [place] [id number] [place] Sodium [Moles/Vol] 133 mmol/L Low 136-144 [facility] Comment on above: Order Comment: Speci men Type: BLOOD SPECIMENOrdering Facility: [facility] Address: [address] [place] [address] Performed By: #### 2 4321-2, 2777-1, 64568-5, ####[facility] LABORATORYCLIA [id number] [place] [id number] [place] Urea nitrogen [Mass/Vol] 68 mg/dL High 9-24 [facility] Comment on above: Order Comment: Speci men Type: BLOOD SPECIMENOrdering Facility: [facility] Address: [address] [place] [address] Performed By: #### 2 4321-2, 2777-1, 49786-7, 05503-8 ####[facility] LABORATORYCLIA [id number] [place] [id number] [place] CBC panel Auto (Bld)on 08-29 Erythrocyte distribution width (RBC) [Ratio] 12.2 % Normal 11.5-15.0 [facility] Comment on above: Order Comment: Speci men Type: BLOOD SPECIMENOrdering Facility: [facility] Address: [address] [place] [address] Performed By: #### 5 8410-2 ####[facility] LABORATORYCLIA [id number] [address] [place] Hematocrit (Bld) [Volume fraction] 37.9 % Low 39.0-51.0 [facility] Comment on above: Order Comment: Speci men Type: BLOOD SPECIMENOrdering Facility: [facility] Address: [address] [place] [address] Performed By: #### 5 8410-2 ####[facility] LABORATORYCLIA [id number] [address] [place] Hemoglobin (Bld) [Mass/Vol] 12.9 g/dL Low 13.0-17.0 [facility] Comment on above: Order Comment: Speci men Type: BLOOD SPECIMENOrdering Facility: [facility] Address: [address] [place] [address] Performed By: #### 5 8410-2 ####[facility] LABORATORYCLIA [id number] [place] [id number] [place] MCH (RBC) [Entitic mass] 29.7 pg Normal 26.0-34.0 [facility] Comment on above: Order Comment: Speci men Type: BLOOD SPECIMENOrdering Facility: [facility] Address: [address] [place] [address] Performed By: #### 5 8410-2 ####[facility] LABORATORYCLIA [id number] [place] [id number] [place] MCHC (RBC) [Mass/Vol] 34.0 g/dL Normal 30.5-36.0 [facility] Comment on above: Order Comment: Speci men Type: BLOOD SPECIMENOrdering Facility: [facility] Address: [address] [place] [address] Performed By: #### 5 8410-2 ####[facility] LABORATORYCLIA [id number] [place] [id number] [place] MCV (RBC) [Entitic vol] 87.3 fL Normal 80.0-100.0 [facility] Comment on above: Order Comment: Speci men Type: BLOOD SPECIMENOrdering Facility: [facility] Address: [address] [place] [address] Performed By: #### 5 8410-2 ####[facility] LABORATORYCLIA [id number] [place] [id number] [place] Nucleated RBC (Bld) [#/Vol] 10*3/uL Normal <0.01 [facility] Comment on above: Order Comment: Speci men Type: BLOOD SPECIMENOrdering Facility: [facility] Address: [address] [place] [address] Performed By: #### 5 8410-2 ####[facility] LABORATORYCLIA [id number] [place] [address] [place] Platelet mean volume (Bld) [Entitic vol] 10.5 fL Normal 9.0-12.7 [facility] Comment on above: Order Comment: Speci men Type: BLOOD SPECIMENOrdering Facility: [facility] Address: [address] [place] [address] Performed By: #### 5 8410-2 ####[facility] LABORATORYCLIA [id number] [place] [id number] [place] Platelets (Bld) [#/Vol] 356 10*3/uL Normal 150-400 [facility] Comment on above: Order Comment: Speci men Type: BLOOD SPECIMENOrdering Facility: [facility] Address: [address] [place] [address] Performed By: #### 5 8410-2 ####[facility] LABORATORYCLIA [id number] [place] [id number] [place] RBC (Bld) [#/Vol] 4.34 10*6/uL Normal 4.20-6.00 [facility] Comment on above: Order Comment: Speci men Type: BLOOD SPECIMENOrdering Facility: [facility] Address: [place] [address] Performed By: #### 5 8410-2 ####[facility] LABORATORYCLIA [id number] [place] [id number] [place] WBC (Bld) [#/Vol] 6.11 10*3/uL Normal 3.70-11.00 [facility] Comment on above: Order Comment: Miai men Type: BLOOD SPECIMENOrdering Facility: [facility] Address: [place] [address] Performed By: #### 5 8410-2 ####[facility] LABORATORYCLIA [id number] [place] [id number] [place] HIGH SENSITIVITY TROPONIN T (THIRD) 3 HRS AFTER INITIALon 08-29-2023 Troponin T.cardiac High sensitivity method [Mass/Vol] 32 ng/L High <12 [facility] Comment on above: Order Comment: Arben suarez Type: BLOOD SPECIMENOrdering Facility: [facility] Address: [place] [address] Result Comment: When assessing risk for acute [...] 30 day MACE. Performed By: #### L [id number] ####[facility] LABORATORYCLIA [id number] [place] [id number] [place] Iron and Iron binding capaci ty panelon 08-29-2023 Iron [Mass/Vol] 170 ug/dL Normal 41-186 [facility] Comment on above: Order Comment: Arben men Type: BLOOD SPECIMENOrdering Facility: [facility] Address: [place] [address] Performed By: #### 2 4321-2, 2777-1, 72540-2, 89178-9 ####[facility] LABORATORYCLIA [id number] [place] [address] [place] Iron binding capacity [Mass/Vol] 331 ug/dL Normal 232-386 [facility] Comment on above: Order Comment: Speci men Type: BLOOD SPECIMENOrdering Facility: [facility] Address: [address] [place] [address] Performed By: #### 2 4321-2, 2777-1, 40928-0, ####[facility] LABORATORYCLIA [id number] [place] [address] [place] Iron/TIBC [Molar ratio] 51.4 % Normal 20.0-55.0 [facility] Comment on above: Order Comment: Speci men Type: BLOOD SPECIMENOrdering Facility: [facility] Address: [address] [place] [address] Performed By: #### 2 4321-2, 2777-1, 52193-4, ####[facility] LABORATORYCLIA [id number] [place] [address] [place] Lactate (Bld) [Moles/Vol]on 08-29-2023 Lactate [Moles/Vol] 1.1 mmol/L Normal 0.5-2.2 [facility] Comment on above: Order Comment: Speci men Type: BLOOD SPECIMENOrdering Facility: [facility] Address: [address] [place] [address] Performed By: #### 3 2693-4 ####[facility] LABORATORYCLIA [id number] [place] [address] [place] Magnesium SerPl-mCncon 08-29 Magnesium [Mass/Vol] 2.6 mg/dL High 1.7-2.3 [facility] Comment on above: Order Comment: Speci men Type: BLOOD SPECIMENOrdering Facility: [facility] Address: [address] [place] [address] Performed By: #### 2 4321-2, 2777-1, 75638-8, 49301-1 ####[facility] LABORATORYCLIA [id number] [place] [id number] [place] NURSING PROGon 08-29-2023 NURSING PROG Normal [facility] NUTRITIONon 08-29-2023 NUTRITION Normal [facility] NUTRITION Normal [facility] PT EDon 08-29-2023 PT ED Normal [facility] Phosphate SerPl-mCncon 08-29 Phosphate [Mass/Vol] 4.7 mg/dL Normal 2.7-4.8 [facility] Comment on above: Order Comment: Speci men Type: BLOOD SPECIMENOrdering Facility: [facility] Address: [address] [place] [address] Performed By: #### 2 4321-2, 2777-1, 93397-8, 62310-6 ####[facility] LABORATORYCLIA [id number] [place] [id number] [place] Prealb SerPl-mCncon 08-29-19 24 Prealbumin [Mass/Vol] 26 mg/dL Normal 17-36 [facility] Comment on above: Order Comment: Speci men Type: BLOOD SPECIMENOrdering Facility: [facility] Address: [address] [place] [address] Performed By: #### 1 4338-8, 3034-6 ####[facility] LABCLIA [id number] [place] [address] [place] Transferrin SerPl-mCncon Transferrin [Mass/Vol] 271 mg/dL Normal 200-360 [facility] Comment on above: Order Comment: Speci men Type: BLOOD SPECIMENOrdering Facility: [facility] Address: [address] [place] [address] Performed By: #### 1 4338-8, 3034-6 ####[facility] LABCLIA [id number] [place] [address] [place] Urinalysis complete panel (U )on 08-29-2023 Bacteria LM.HPF (Urine sed) [#/Area] Rare Abnormal None Seen [facility] Comment on above: Order Comment: Speci men Type: URINE SPECIMENOrdering Facility: [facility] Address: [address] [place] [address] Performed By: #### 2 4356-8 ####[facility] LABORATORYCLIA [id number] [place] [address] [place] Bilirubin Ql (U) Negative Normal Negative [facility] Comment on above: Order Comment: Speci men Type: URINE SPECIMENOrdering Facility: [facility] Address: [address] [place] [address] Performed By: #### 2 4356-8 ####[facility] LABORATORYCLIA [id number] [place] [address] [place] Clarity (Unsp spec) Clear Normal Clear [facility] Comment on above: Order Comment: Speci men Type: URINE SPECIMENOrdering Facility: [facility] Address: [address] [place] [address] Performed By: #### 2 4356-8 ####[facility] LABORATORYCLIA [id number] [place] [address] [place] Color (U) Light Yellow Normal Yellow [facility] Comment on above: Order Comment: Speci men Type: URINE SPECIMENOrdering Facility: [facility] Address: [address] [place] [address] Performed By: #### 2 4356-8 ####[facility] LABORATORYCLIA [id number] [place] [address] [place] Glucose Test strip (U) [Mass/Vol] Negative Normal Trace, Negative [facility] Comment on above: Order Comment: Speci men Type: URINE SPECIMENOrdering Facility: [facility] Address: [address] [place] [address] Performed By: #### 2 4356-8 ####[facility]ORATORYCLIA [id number] [place] [address] [place] Hemoglobin Ql (U) Negative Normal Negative, Trace [facility] Comment on above: Order Comment: Speci men Type: URINE SPECIMENOrdering Facility: [facility] Address: [address] [place] [address] Performed By: #### 2 4356-8 ####[facility] LABORATORYCLIA [id number] [place] [address] [place] Ketones Ql (U) Negative Normal Negative, Trace [facility] Comment on above: Order Comment: Speci men Type: URINE SPECIMENOrdering Facility: [facility] Address: [address] [place] [address] Performed By: #### 2 4356-8 ####[facility] LABORATORYCLIA [id number] [place] [address] [place] Leukocyte esterase Test strip Ql (U) Negative Normal Negative, 25 Angle/uL [facility] Comment on above: Order Comment: Speci men Type: URINE SPECIMENOrdering Facility: [facility] Address: [address] [place] [address] Performed By: #### 2 4356-8 ####[facility] LABORATORYCLIA [id number] [place] [address] [place] Nitrite Ql (U) Negative Normal Negative [facility] Comment on above: Order Comment: Speci men Type: URINE SPECIMENOrdering Facility: [facility] Address: [address] [place] [address] Performed By: #### 2 4356-8 ####[facility] LABORATORYCLIA [id number] [place] [address] [place] pH (U) 5.0 [pH] Normal 5.0-8.0 [facility] Comment on above: Order Comment: Speci men Type: URINE SPECIMENOrdering Facility: [facility] Address: [address] [place] [address] Performed By: #### 2 4356-8 ####[facility] LABORATORYCLIA [id number] [place] [address] [place] Protein (U) [Mass/Vol] Trace Normal Trace , Negative [facility] Comment on above: Order Comment: Speci men Type: URINE SPECIMENOrdering Facility: [facility] Address: [address] [place] [address] Performed By: #### 2 4356-8 ####[facility] LABORATORYCLIA [id number] [place] [address] [place] RBC LM.HPF (Urine sed) [#/Area] 0-3 /HPF Normal 0-3 /HPF [facility] Comment on above: Order Comment: Speci men Type: URINE SPECIMENOrdering Facility: [facility] Address: [address] [place] [address] Performed By: #### 2 4356-8 ####[facility] LABORATORYCLIA [id number] [place] [address] [place] Specific gravity (U) [Rel density] 1.013 Normal 1.005-1.03 0 [facility] Comment on above: Order Comment: Speci men Type: URINE SPECIMENOrdering Facility: [facility] Address: [address] [place] [address] Performed By: #### 2 4356-8 ####[facility] LABORATORYCLIA [id number] [address] [place] URIC ACID CRYSTALS (UA) Moderate Abnormal None Seen F [facility] Comment on above: Order Comment: Speci men Type: URINE SPECIMENOrdering Facility: [facility] Address: [address] [place] [address] Performed By: #### 2 4356-8 ####LORETTO LABORATORYCLIA [id number] [address] [place] Urobilinogen Ql (U) Negative Normal Negative [facility] Comment on above: Order Comment: Speci men Type: URINE SPECIMENOrdering Facility: [facility] Address: [address] [place] [address] Performed By: #### 2 4356-8 ####LORETTO LABORATORYCLIA [id number] [place] [address] [place] WBC LM.HPF (Urine sed) [#/Area] 0-5 /HPF Normal 0-5 /HPF [facility] Comment on above: Order Comment: Speci men Type: URINE SPECIMENOrdering Facility: [facility] Address: [address] [place] [address] Performed By: #### 2 4356-8 ####[facility] LABORATORYCLIA [id number] [place] [address] [place] ALLIED HEALTHon 08-28-2023 ALLIED HEALTH Normal [facility] ALLIED HEALTH Normal [facility] Bacteria Bld Culton 08-28-19 24 Bacteria identified Cx Nom (Bld) CULTURE, BLOOD: No growth 5 days Normal [facility] Comment on above: Performed By: #### 6 00-7 ####[facility] LABCLIA [id number] [place] [address] [place] CASE MGT INIT ASSESon 2023 CASE MGT INIT ASSES Normal [facility] CBC W Auto Differential pane l (Bld)on 08-28-2023 Basophils (Bld) [#/Vol] 0.03 10*3/uL Normal <0.11 [facility] Comment on above: Order Comment: Speci men Type: BLOOD SPECIMENOrdering Facility: [facility] Address: [address] [place] [address] Performed By: #### 5 7021-8 ####[facility] LABORATORYCLIA [id number] [place] [id number] [place] Basophils/100 WBC (Bld) 0.3 % Normal [facility] Comment on above: Order Comment: Speci men Type: BLOOD SPECIMENOrdering Facility: [facility] Address: [address] [place] [address] Performed By: #### 5 7021-8 ####[facility] LABORATORYCLIA [id number] [place] [address] [place] Differential cell count method Nom (Bld) Auto Normal [facility] Comment on above: Order Comment: Speci men Type: BLOOD SPECIMENOrdering Facility: [facility] Address: [address] [place] [address] Performed By: #### 5 7021-8 ####[facility] LABORATORYCLIA [id number] [place] [id number] [place] Eosinophils (Bld) [#/Vol] 0.06 10*3/uL Normal <0.46 [facility] Comment on above: Order Comment: Speci men Type: BLOOD SPECIMENOrdering Facility: [facility] Address: [address] [place] [address] Performed By: #### 5 7021-8 ####[facility] LABORATORYCLIA [id number] [place] [id number] [place] Eosinophils/100 WBC (Bld) 0.6 % Normal [facility] Comment on above: Order Comment: Speci men Type: BLOOD SPECIMENOrdering Facility: [facility] Address: [address] [place] [address] Performed By: #### 5 7021-8 ####[facility] LABORATORYCLIA [id number] [place] [address] [place] Erythrocyte distribution width (RBC) [Ratio] 12.3 % Normal 11.5-15.0 [facility] Comment on above: Order Comment: Speci men Type: BLOOD SPECIMENOrdering Facility: [facility] Address: [address] [place] [address] Performed By: #### 5 7021-8 ####[facility] LABORATORYCLIA [id number] [address] [place] Hematocrit (Bld) [Volume fraction] 42.0 % Normal 39.0-51.0 [facility] Comment on above: Order Comment: Speci men Type: BLOOD SPECIMENOrdering Facility: [facility] Address: [address] [place] [address] Performed By: #### 5 7021-8 ####[facility] LABORATORYCLIA [id number] [place] [address] [place] Hemoglobin (Bld) [Mass/Vol] 14.3 g/dL Normal 13.0-17.0 [facility] Comment on above: Order Comment: Speci men Type: BLOOD SPECIMENOrdering Facility: [facility] Address: [address] [place] [address] Performed By: #### 5 7021-8 ####[facility] LABORATORYCLIA [id number] [place] [address] [place] Immature granulocytes (Bld) [#/Vol] 0.16 10*3/uL High <0.10 [facility] Comment on above: Order Comment: Speci men Type: BLOOD SPECIMENOrdering Facility: [facility] Address: [address] [place] [address] Performed By: #### 5 7021-8 ####[facility] LABORATORYCLIA [id number] [address] [place] Immature granulocytes/100 WBC (Bld) 1.6 % Normal [facility] Comment on above: Order Comment: Speci men Type: BLOOD SPECIMENOrdering Facility: [facility] Address: [address] [place] [address] Performed By: #### 5 7021-8 ####[facility] LABORATORYCLIA [id number] [place] [address] [place] Lymphocytes (Bld) [#/Vol] 1.27 10*3/uL Normal 1.00-4.00 [facility] Comment on above: Order Comment: Speci men Type: BLOOD SPECIMENOrdering Facility: [facility] Address: [address] [place] [address] Performed By: #### 5 7021-8 ####[facility] LABORATORYCLIA [id number] [address] [place] Lymphocytes/100 WBC (Bld) 12.7 % Normal [facility] Comment on above: Order Comment: Speci men Type: BLOOD SPECIMENOrdering Facility: [facility] Address: [address] [place] [address] Performed By: #### 5 7021-8 ####[facility] LABORATORYCLIA [id number] [place] [address] [place] MCH (RBC) [Entitic mass] 29.5 pg Normal 26.0-34.0 [facility] Comment on above: Order Comment: Speci men Type: BLOOD SPECIMENOrdering Facility: [facility] Address: [address] [place] [address] Performed By: #### 5 7021-8 ####[facility] LABORATORYCLIA [id number] [place] [address] [place] MCHC (RBC) [Mass/Vol] 34.0 g/dL Normal 30.5-36.0 [facility] Comment on above: Order Comment: Speci men Type: BLOOD SPECIMENOrdering Facility: [facility] Address: [address] [place] [address] Performed By: #### 5 7021-8 ####[facility] LABORATORYCLIA [id number] [place] [id number] [place] MCV (RBC) [Entitic vol] 86.8 fL Normal 80.0-100.0 [facility] Comment on above: Order Comment: Speci men Type: BLOOD SPECIMENOrdering Facility: [facility] Address: [address] [place] [address] Performed By: #### 5 7021-8 ####[facility] LABORATORYCLIA [id number] [place] [id number] [place] Monocytes (Bld) [#/Vol] 0.52 10*3/uL Normal <0.87 [facility] Comment on above: Order Comment: Speci men Type: BLOOD SPECIMENOrdering Facility: [facility] Address: [address] [place] [address] Performed By: #### 5 7021-8 ####[facility] LABORATORYCLIA [id number] [place] [id number] [place] Monocytes/100 WBC (Bld) 5.2 % Normal [facility] Comment on above: Order Comment: Speci men Type: BLOOD SPECIMENOrdering Facility: [facility] Address: [address] [place] [address] Performed By: #### 5 7021-8 ####[facility] LABORATORYCLIA [id number] [place] [id number] [place] Neutrophils (Bld) [#/Vol] 7.97 10*3/uL High 1.45-7.50 [facility] Comment on above: Order Comment: Speci men Type: BLOOD SPECIMENOrdering Facility: [facility] Address: [address] [place] [address] Performed By: #### 5 7021-8 ####[facility] LABORATORYCLIA [id number] [place] [id number] [place] Neutrophils/100 WBC (Bld) 79.6 % Normal [facility] Comment on above: Order Comment: Speci men Type: BLOOD SPECIMENOrdering Facility: [facility] Address: [address] [place] [address] Performed By: #### 5 7021-8 ####[facility] LABORATORYCLIA [id number] [place] [address] [place] Nucleated RBC (Bld) [#/Vol] 10*3/uL Normal <0.01 [facility] Comment on above: Order Comment: Speci men Type: BLOOD SPECIMENOrdering Facility: [facility] Address: [address] [place] [address] Performed By: #### 5 7021-8 ####[facility] LABORATORYCLIA [id number] [place] [address] [place] Nucleated RBC/100 WBC (Bld) [Ratio] 0.0 /100 WBC Normal [facility] Comment on above: Order Comment: Speci men Type: BLOOD SPECIMENOrdering Facility: [facility] Address: [address] [place] [address] Performed By: #### 5 7021-8 ####[facility] LABORATORYCLIA [id number] [place] [address] [place] Platelet mean volume (Bld) [Entitic vol] 10.4 fL Normal 9.0-12.7 [facility] Comment on above: Order Comment: Speci men Type: BLOOD SPECIMENOrdering Facility: [facility] Address: [address] [place] [address] Performed By: #### 5 7021-8 ####[facility] LABORATORYCLIA [id number] [place] [id number] [place] Platelets (Bld) [#/Vol] 529 10*3/uL High 150-400 [facility] Comment on above: Order Comment: Speci men Type: BLOOD SPECIMENOrdering Facility: [facility] Address: [address] [place] [address] Performed By: #### 5 7021-8 ####[facility] LABORATORYCLIA [id number] [place] [address] [place] RBC (Bld) [#/Vol] 4.84 10*6/uL Normal 4.20-6.00 [facility] Comment on above: Order Comment: Speci men Type: BLOOD SPECIMENOrdering Facility: [facility] Address: [place] [address] Performed By: #### 5 7021-8 ####[facility] LABORATORYCLIA [id number] [place] [id number] [place] WBC (Bld) [#/Vol] 10.01 10*3/uL Normal 3.70-11.00 [facility] Comment on above: Order Comment: Speci men Type: BLOOD SPECIMENOrdering Facility: [facility] Address: [place] [address] Performed By: #### 5 7021-8 ####[facility] LABORATORYCLIA [id number] [place] [id number] [facility] CNOVon 08-28-2023 CNOV Office Visit (GENNOM ) -------- AISHA JULIEN ([id number]) 1955 M Date Time Provider Department 08/28/23 [...] Oropharynx: Lips, (more content not included)... Normal [facility] CONSULTon 08-28-2023 CONSULT Normal [facility] CT ABD/PEL WO IVCONon 2023 CT ABD/PEL WO IVCON Normal [facility] CT BRAIN WO IVCONon 08-28-19 CT BRAIN WO IVCON Normal [facility] metabolic 2000 panelon 08-28-2023 Albumin [Mass/Vol] 4.1 g/dL Normal 3.9-4.9 [facility] Comment on above: Order Comment: Speci men Type: BLOOD SPECIMENOrdering Facility: [facility] Address: [address] [place], [place] [address] Performed By: #### 2 4323-8, [id number], 88167-8, 22087-0, 3040-3 ####[facility] LABORATORYCLIA [id number] [place] [id number] [place] ALP [Catalytic activity/Vol] 284 U/L High 38-113 [facility] Comment on above: Order Comment: Speci men Type: BLOOD SPECIMENOrdering Facility: [facility] Address: [address] [place] [address] Performed By: #### 2 4323-8, [id number], 70170-1, 20731-6, 3040-3 ####[facility] LABORATORYCLIA [id number] [place] [id number] [place] ALT [Catalytic activity/Vol] 65 U/L High 10-54 [facility] Comment on above: Order Comment: Speci men Type: BLOOD SPECIMENOrdering Facility: [facility] Address: [address] [place] [address] Performed By: #### 2 4323-8, [id number], 74874-1, 23407-7, 3040-3 ####[facility] LABORATORYCLIA [id number] [place] [id number] [place] Anion gap [Moles/Vol] 18 mmol/L Normal 9-18 [facility] Comment on above: Order Comment: Speci men Type: BLOOD SPECIMENOrdering Facility: [facility] Address: [address] [place] [address] Performed By: #### 2 4323-8, [id number], 58635-3, 65982-5, 3040-3 ####[facility] LABORATORYCLIA [id number] [place] [id number] [place] AST [Catalytic activity/Vol] 33 U/L Normal 14-40 [facility] Comment on above: Order Comment: Speci men Type: BLOOD SPECIMENOrdering Facility: [facility] Address: [address] [place] [address] Performed By: #### 2 4323-8, [id number], 42593-3, 27991-9, 3040-3 ####[facility] LABORATORYCLIA [id number] [place] [address] [place] Bilirubin [Mass/Vol] 0.7 mg/dL Normal 0.2-1.3 [facility] Comment on above: Order Comment: Speci men Type: BLOOD SPECIMENOrdering Facility: [facility] Address: [address] [place] [address] Performed By: #### 2 4323-8, IAH7710, 78606-7, 66287-2, 3040-3 ####[facility] LABORATORYCLIA [id number] [place] [address] [place] Calcium [Mass/Vol] 9.5 mg/dL Normal 8.5-10.2 [facility] Comment on above: Order Comment: Speci men Type: BLOOD SPECIMENOrdering Facility: [facility] Address: [address] [place] [address] Performed By: #### 2 4323-8, [id number], 48928-1, 35943-7, 3040-3 ####[facility] LABORATORYCLIA [id number] [place] [id number] [place] Chloride [Moles/Vol] 96 mmol/L Low 97-105 [facility] Comment on above: Order Comment: Speci men Type: BLOOD SPECIMENOrdering Facility: [facility] Address: [address] [place] [address] Performed By: #### 2 4323-8, [id number], 62488-5, 25127-5, 3040-3 ####[facility] LABORATORYCLIA [id number] [place] [address] [place] CO2 [Moles/Vol] 12 mmol/L Low 22-30 [facility] Comment on above: Order Comment: Speci men Type: BLOOD SPECIMENOrdering Facility: [facility] Address: [address] [place] [address] Performed By: #### 2 4323-8, [id number], 92576-7, 19950-7, 3040-3 ####[facility] LABORATORYCLIA [id number] [place] [address] [place] Creatinine [Mass/Vol] 2.53 mg/dL High 0.73-1.22 [facility] Comment on above: Order Comment: Arben suarez Type: BLOOD SPECIMENOrdering Facility: [facility] Address: [address] [place] [address] Performed By: #### 2 4323-8, [id number], 68239-0, 20832-5, 3040-3 ####[facility] LABORATORYCLIA [id number] [place] [address] [place] Creatinine and Glomerular filtration rate.predicted panel (S/P/Bld) 27 mL/min/1.73m??? Low >=60 [facility] Comment on above: Order Comment: Arben suarez Type: BLOOD SPECIMENOrdering Facility: [facility] Address: [address] [place] [address] Result Comment: Bailey mated Glomerular Filtration Rate [...] actual GFR. Performed By: #### 2 4323-8, [id number], 62202-0, 36288-6, 3040-3 ####[facility] LABORATORYCLIA [id number] [place] [id number] [place] Glucose [Mass/Vol] 138 mg/dL High 74-99 [facility] Comment on above: Order Comment: Arben suarez Type: BLOOD SPECIMENOrdering Facility: [facility] Address: [address] [place] [address] Result Comment: The [place] Diabetes [employer] (ADA) provides guidance for cutoff [...] Standards of Medical Care in Diabetes 2016, [place] [employer]. Diabetes Care. 2016.39(Suppl 1). Performed By: #### 2 4323-8, ZWF0722, 39437-1, 30872-5, 3040-3 ####[facility] LABORATORYCLIA [id number] [place] [id number] [place] Potassium [Moles/Vol] 5.4 mmol/L High 3.7-5.1 [facility] Comment on above: Order Comment: Arben suarez Type: BLOOD SPECIMENOrdering Facility: [facility] Address: [address] [place] [address] Performed By: #### 2 4323-8, [id number], 15865-6, 24324-3, 3040-3 ####[facility] LABORATORYCLIA [id number] [place] [id number] [place] Protein [Mass/Vol] 8.2 g/dL High 6.3-8.0 [facility] Comment on above: Order Comment: Arben suarez Type: BLOOD SPECIMENOrdering Facility: [facility] Address: [address] [place] [address] Performed By: #### 2 4323-8, [id number], 53030-9, 85195-0, 3040-3 ####[facility] LABORATORYCLIA [id number] [place] [id number] [place] Sodium [Moles/Vol] 126 mmol/L Low 136-144 [facility] Comment on above: Order Comment: Miai daniela Type: BLOOD SPECIMENOrdering Facility: [facility] Address: [address] [place] [address] Performed By: #### 2 4323-8, VRK3423, 86380-6, 50133-8, 3040-3 ####[facility] LABORATORYCLIA [id number] [place] [address] [place] Urea nitrogen [Mass/Vol] 79 mg/dL High 9-24 [facility] Comment on above: Order Comment: Speci men Type: BLOOD SPECIMENOrdering Facility: [facility] Address: [place] [address] Performed By: #### 2 4323-8, SJA0122, 15335-5, 21325-3, 3040-3 ####[facility] LABORATORYCLIA [id number] [place] [address] [place] ECG COMPLETEon 08-28-2023 ECG COMPLETE Normal [facility] ED NOTEon 08-28-2023 ED NOTE HNO ID: [id number] Author: ASTRID VALLE RN Service: ? Author Type: Registered Nurse Type: ED Notes Filed: 08/28/2023 19:07 Note Text: Report to LUCILLE Cheng [facility] ED NOTE HNO ID: [id number] Author: ASTRID VALLE RN Service: ? Author Type: Registered Nurse Type: ED Notes Filed: 08/28/2023 18:33 Note Text: RN unable to obtain oral or axillary temperature. Pt refusing rectal temperature at this time. [facility] ED NOTE HNO ID: [id number] Author: JAVON AVILES RN Service: ? Author Type: Registered Nurse Type: ED Notes Filed: 08/28/2023 17:23 Note Text: Bed: 26-ED Expected date: Expected time: Means of arrival: Comments: triage Normal [facility] ED PROV NOTEon 08-28-2023 ED PROV NOTE Normal [facility] ED Triage Noteon 08-28-2023 ED Triage Note Normal [facility] FLUABV+SARS-CoV-2+RSV Pnl Re sp VERITO+probeon 08-28-2023 FLUABV+SARS-CoV-2+RSV Pnl Resp VERITO+probe Normal [facility] Comment on above: Performed By: #### 9 5941-1 ####[facility] LABORATORYCLIA [id number] [place] [address] [place] HIGH SENSITIVITY TROPONIN T (INITIAL)on 08-28-2023 Troponin T.cardiac High sensitivity method [Mass/Vol] 38 ng/L High <12 [facility] Comment on above: Order Comment: Speci men Type: BLOOD SPECIMENOrdering Facility: [facility] Address: [address] [place] [address] Result Comment: When assessing risk for acute [...] day MACE. Performed By: #### 2 4323-8, FCC3498, 18033-0, 56452-9, 3040-3 ####[facility] LABORATORYCLIA [id number] [place] [id number] [place] HIGH SENSITIVITY TROPONIN T (SECOND)on 08-28-2023 Troponin T.cardiac High sensitivity method [Mass/Vol] 36 ng/L High <12 [facility] Comment on above: Order Comment: Specbrooks suarez Type: BLOOD SPECIMENOrdering Facility: [facility] Address: [address] [place] [address] Result Comment: When assessing risk for acute [...] 30 day MACE. Performed By: #### L [id number] ####[facility] LABORATORYCLIA [id number] [place] [id number] [place] Lipase SerPl-cCncon 08-28-19 Lipase [Catalytic activity/Vol] 148 U/L High 16-61 [facility] Comment on above: Order Comment: Speci men Type: BLOOD SPECIMENOrdering Facility: [facility] Address: [address] [place] [address] Performed By: #### 2 4323-8, [id number], 21164-0, 56967-9, 3040-3 ####[facility] LABORATORYCLIA [id number] [place] [id number] [place] Magnesium SerPl-mCncon 08-28 Magnesium [Mass/Vol] 2.5 mg/dL High 1.7-2.3 [facility] Comment on above: Order Comment: Arben suarez Type: BLOOD SPECIMENOrdering Facility: [facility] Address: [address] [place] [address] Performed By: #### 2 4323-8, [id number], 02788-0, 44561-1, 3040-3 ####[facility] LABORATORYCLIA [id number] [place] [id number] [facility] NT-proBNP SerPl-mCncon 08-28 Natriuretic peptide.B prohormone N-Terminal [Mass/Vol] 404 pg/mL High <125 [facility] Comment on above: Order Comment: Arben suarez Type: BLOOD SPECIMENOrdering Facility: [facility] Address: [address] [place] [address] Performed By: #### 2 4323-8, [id number], 54864-9, 62809-4, 3040-3 ####[facility] LABORATORYCLIA [id number] [address] [place] PT panel Coag (PPP)on 2023 INR Coag (PPP) [Relative time] 1.3 {INR} Normal 0.9-1.3 [facility] Comment on above: Order Comment: Arben suarez Type: BLOOD SPECIMENOrdering Facility: [facility] Address: [address] [place] [address] Result Comment: Karissa min K Antagonist (VKA) Therapeutic Range: INR 2 to 3 (Target INR of 2.5)Note: For patients treated with VKA drugs, such as warfarin, the [place] [employer] 2012 Guideline recommends [...] al. Chest 2012, 141:7S-47SBeau RA, et al. [facility] 2017, 70: 252-289 Performed By: #### 3 4528-0, 21760-7 ####[facility] LABORATORYCLIA [id number] [address] [place] [facility] PT Coag (PPP) [Time] 13.7 s High 9.7-13.0 [facility] Comment on above: Order Comment: Speci men Type: BLOOD SPECIMENOrdering Facility: [facility] Address: [address] [place] [address] Performed By: #### 3 4528-0, 40086-3 ####[facility] LABORATORYCLIA [id number] [address] SEPSIS LACTATEon 08-28-2023 Lactate [Moles/Vol] 2.2 mmol/L High 0.0-2.0 [facility] Comment on above: Order Comment: Speci men Type: BLOOD SPECIMENOrdering Facility: [facility] Address: [address] [place] [address] Performed By: #### S LACT ####[facility] LABORATORYCLIA [id number] [address] Lactate [Moles/Vol] 2.6 mmol/L High 0.0-2.0 [facility] Comment on above: Order Comment: Speci men Type: BLOOD SPECIMENOrdering Facility: [facility] Address: [address] [place] [address] Performed By: #### S LACT ####[facility] LABORATORYCLIA [id number] [address] [place] XR ABDOMEN 1V SUPINEon 08-28 XR ABDOMEN 1V SUPINE Normal [facility] XR CHEST 1V FRONTAL PORTon 0 08-28-2023 XR CHEST 1V FRONTAL PORT Normal [facility] aPTT PPPon 08-28-2023 aPTT Coag (PPP) [Time] 32.1 s Normal 23.0-32.4 [facility] Comment on above: Order Comment: Speci men Type: BLOOD SPECIMENOrdering Facility: [facility] Address: [address] [place] [address] Performed By: #### 3 4528-0, 12146-3 ####[facility] LABORATORYCLIA [id number] [place] [address] [place] CASE MANAGEMon 08-17-2023 CASE MANAGEM Normal [facility] CNDSon 08-17-2023 CNDS Normal [facility] Comprehensive metabolic 2000 panelon 08-17-2023 Albumin [Mass/Vol] 3.0 g/dL Low 3.9-4.9 [facility] Comment on above: Order Comment: Speci men Type: BLOOD SPECIMENOrdering Facility: [facility] Address: [place] [address] Performed By: #### 2 4323-8, 277-1, ####[facility] LABORATORYCLIA [id number] [place] [id number] [place] ALP [Catalytic activity/Vol] 137 U/L High 38-113 [facility] Comment on above: Order Comment: Speci men Type: BLOOD SPECIMENOrdering Facility: [facility] Address: [place] [address] Performed By: #### 2 4323-8, 277-, ####[facility] LABORATORYCLIA [id number] [place] [id number] [place] ALT [Catalytic activity/Vol] 19 U/L Normal 10-54 [facility] Comment on above: Order Comment: Speci men Type: BLOOD SPECIMENOrdering Facility: [facility] Address: [address] [place] [address] Performed By: #### 2 4323-8, 277-1, ####[facility] LABORATORYCLIA [id number] [place] [id number] [place] Anion gap [Moles/Vol] 11 mmol/L Normal 9-18 [facility] Comment on above: Order Comment: Speci men Type: BLOOD SPECIMENOrdering Facility: [facility] Address: [address] [place] [address] Performed By: #### 2 4323-8, 2776-08, ####[facility] LABORATORYCLIA [id number] [place] [address] [place] AST [Catalytic activity/Vol] 18 U/L Normal 14-40 [facility] Comment on above: Order Comment: Speci men Type: BLOOD SPECIMENOrdering Facility: [facility] Address: [address] [place] [address] Performed By: #### 2 4323-8, 2776-08, ####[facility] LABORATORYCLIA [id number] [place] [id number] [place] Bilirubin [Mass/Vol] 0.8 mg/dL Normal 0.2-1.3 [facility] Comment on above: Order Comment: Speci men Type: BLOOD SPECIMENOrdering Facility: [facility] Address: [address] [place] [address] Performed By: #### 2 4323-8, 2776-08, ####[facility] LABORATORYCLIA [id number] [place] [id number] [place] Calcium [Mass/Vol] 8.4 mg/dL Low 8.5-10.2 [facility] Comment on above: Order Comment: Speci men Type: BLOOD SPECIMENOrdering Facility: [facility] Address: [address] [place] [address] Performed By: #### 2 4323-8, 2776-08, ####[facility] LABORATORYCLIA [id number] [place] [id number] [place] Chloride [Moles/Vol] 102 mmol/L Normal 97-105 [facility] Comment on above: Order Comment: Speci men Type: BLOOD SPECIMENOrdering Facility: [facility] Address: [address] [place] [address] Performed By: #### 2 4323-8, 2776-08, ####[facility] LABORATORYCLIA [id number] [place] [id number] [place] CO2 [Moles/Vol] 22 mmol/L Normal 22-30 [facility] Comment on above: Order Comment: Arben suarez Type: BLOOD SPECIMENOrdering Facility: [facility] Address: [address] [place] [address] Performed By: #### 2 4323-8, 27702-22, ####[facility] LABORATORYCLIA [id number] [place] [address] [place] Creatinine [Mass/Vol] 1.06 mg/dL Normal 0.73-1.22 [facility] Comment on above: Order Comment: Mia daniela Type: BLOOD SPECIMENOrdering Facility: [facility] Address: [address] [place] [address] Performed By: #### 2 4323-8, 27702-22, ####[facility] LABORATORYCLIA [id number] [place] [id number] [place] Creatinine and Glomerular filtration rate.predicted panel (S/P/Bld) 76 mL/min/1.73m??? Normal >=60 [facility] Comment on above: Order Comment: Arben suarez Type: BLOOD SPECIMENOrdering Facility: [facility] Address: [address] [place] [address] Result Comment: Bailey mated Glomerular Filtration Rate [...] GFR. Performed By: #### 2 4323-8, 2777, ####[facility] LABORATORYCLIA [id number] [place] [id number] [place] Glucose [Mass/Vol] 119 mg/dL High 74-99 [facility] Comment on above: Order Comment: Speci daniela Type: BLOOD SPECIMENOrdering Facility: [facility] Address: [address] [place] [address] Result Comment: The [place] Diabetes Association (ADA) provides guidance for cutoff [...] Standards of Medical Care in Diabetes 2016, [place] [employer]. Diabetes Care. 2016.39(Suppl 1). Performed By: #### 2 4323-8, 2776-08, ####[facility] LABORATORYCLIA [id number] [place] [id number] [place] Potassium [Moles/Vol] 3.9 mmol/L Normal 3.7-5.1 [facility] Comment on above: Order Comment: Speci men Type: BLOOD SPECIMENOrdering Facility: [facility] Address: [address] [place] [address] Performed By: #### 2 4323-8, 2776-08, ####[facility] LABORATORYCLIA [id number] [place] [id number] [place] Protein [Mass/Vol] 5.9 g/dL Low 6.3-8.0 [facility] Comment on above: Order Comment: Speci men Type: BLOOD SPECIMENOrdering Facility: [facility] Address: [address] [place] [address] Performed By: #### 2 4323-8, 2776-08, ####[facility] LABORATORYCLIA [id number] [place] [id number] [place] Sodium [Moles/Vol] 135 mmol/L Low 136-144 [facility] Comment on above: Order Comment: Speci men Type: BLOOD SPECIMENOrdering Facility: [facility] Address: [address] [place] [address] Performed By: #### 2 4323-8, 2776-08, ####[facility] LABORATORYCLIA [id number] [place] [id number] [place] Urea nitrogen [Mass/Vol] 19 mg/dL Normal 05-18 [facility] Comment on above: Order Comment: Speci men Type: BLOOD SPECIMENOrdering Facility: [facility] Address: [place] [address] Performed By: #### 2 4323-8, 2777-1, ####[facility] LABORATORYCLIA [id number] [place] [id number] [place] Magnesium SerPl-mCncon 08-17 Magnesium [Mass/Vol] 2.3 mg/dL Normal 1.7-2.3 [facility] Comment on above: Order Comment: Speci men Type: BLOOD SPECIMENOrdering Facility: [facility] Address: [address] [place] [address] Performed By: #### 2 4323-8, 2777-, ####[facility] LABORATORYCLIA [id number] [place] [id number] [place] NURSING PROGon 08-17-2023 NURSING PROG Normal [facility] Phosphate SerPl-mCncon 08-17 Phosphate [Mass/Vol] 3.0 mg/dL Normal 2.7-4.8 [facility] Comment on above: Order Comment: Speci men Type: BLOOD SPECIMENOrdering Facility: [facility] Address: [place] [address] Performed By: #### 2 4323-8, 2777-1, ####[facility] LABORATORYCLIA [id number] [place] [id number] [place] CASE MANAGEMon 08-16-2023 CASE MANAGEM Normal [facility] CBC panel Auto (Bld)on 08-16 Erythrocyte distribution width (RBC) [Ratio] 12.0 % Normal 11.5-15.0 [facility] Comment on above: Order Comment: Speci men Type: BLOOD SPECIMENOrdering Facility: [facility] Address: [address] [place] [address] Performed By: #### 5 8410-2 ####[facility] LABORATORYCLIA [id number] [address] [place] Hematocrit (Bld) [Volume fraction] 33.3 % Low 39.0-51.0 [facility] Comment on above: Order Comment: Speci men Type: BLOOD SPECIMENOrdering Facility: [facility] Address: [address] [place] [address] Performed By: #### 5 8410-2 ####[facility] LABORATORYCLIA [id number] [address] [place] Hemoglobin (Bld) [Mass/Vol] 11.1 g/dL Low 13.0-17.0 [facility] Comment on above: Order Comment: Speci men Type: BLOOD SPECIMENOrdering Facility: [facility] Address: [address] [place] [address] Performed By: #### 5 8410-2 ####[facility] LABORATORYCLIA [id number] [address] [place] MCH (RBC) [Entitic mass] 30.2 pg Normal 26.0-34.0 [facility] Comment on above: Order Comment: Speci men Type: BLOOD SPECIMENOrdering Facility: [facility] Address: [address] [place] [address] Performed By: #### 5 8410-2 ####[facility] LABORATORYCLIA [id number] [address] [place] MCHC (RBC) [Mass/Vol] 33.3 g/dL Normal 30.5-36.0 [facility] Comment on above: Order Comment: Speci men Type: BLOOD SPECIMENOrdering Facility: [facility] Address: [address] [place] [address] Performed By: #### 5 8410-2 ####[facility] LABORATORYCLIA [id number] [address] MCV (RBC) [Entitic vol] 90.5 fL Normal 80.0-100.0 [facility] Comment on above: Order Comment: Speci men Type: BLOOD SPECIMENOrdering Facility: [facility] Address: [address] [place] [address] Performed By: #### 5 8410-2 ####[facility] LABORATORYCLIA [id number] [place] [id number] [place] Nucleated RBC (Bld) [#/Vol] 10*3/uL Normal <0.01 [facility] Comment on above: Order Comment: Speci men Type: BLOOD SPECIMENOrdering Facility: [facility] Address: [address] [place] [address] Performed By: #### 5 8410-2 ####[facility] LABORATORYCLIA [id number] [place] [address] [place] Platelet mean volume (Bld) [Entitic vol] 11.3 fL Normal 9.0-12.7 [facility] Comment on above: Order Comment: Speci men Type: BLOOD SPECIMENOrdering Facility: [facility] Address: [address] [place] [address] Performed By: #### 5 8410-2 ####[facility] LABORATORYCLIA [id number] [place] [id number] [place] Platelets (Bld) [#/Vol] 214 10*3/uL Normal 150-400 [facility] Comment on above: Order Comment: Speci men Type: BLOOD SPECIMENOrdering Facility: [facility] Address: [address] [place] [address] Performed By: #### 5 8410-2 ####[facility] LABORATORYCLIA [id number] [place] [id number] [place] RBC (Bld) [#/Vol] 3.68 10*6/uL Low 4.20-6.00 [facility] Comment on above: Order Comment: Speci men Type: BLOOD SPECIMENOrdering Facility: [facility] Address: [address] [place] [address] Performed By: #### 5 8410-2 ####[facility] LABORATORYCLIA [id number] [place] [id number] [place] WBC (Bld) [#/Vol] 7.23 10*3/uL Normal 3.70-11.00 [facility] Comment on above: Order Comment: Speci men Type: BLOOD SPECIMENOrdering Facility: [facility] Address: [address] [place] [address] Performed By: #### 5 8410-2 ####[facility] LABORATORYCLIA [id number] [place] [address] [place] CONSULTon 08-16-2023 CONSULT Normal [facility] Comprehensive metabolic 2000 panelon 08-16-2023 Albumin [Mass/Vol] 3.2 g/dL Low 3.9-4.9 [facility] Comment on above: Order Comment: Speci men Type: BLOOD SPECIMENOrdering Facility: [facility] Address: [address] [place] [address] Performed By: #### 2 777-1, , ####[facility] LABORATORYCLIA [id number] [place] [id number] [place] ALP [Catalytic activity/Vol] 139 U/L High 38-113 [facility] Comment on above: Order Comment: Speci men Type: BLOOD SPECIMENOrdering Facility: [facility] Address: [address] [place] [address] Performed By: #### 2 777-1, , ####[facility] LABORATORYCLIA [id number] [place] [id number] [place] ALT [Catalytic activity/Vol] 23 U/L Normal 10-54 [facility] Comment on above: Order Comment: Speci men Type: BLOOD SPECIMENOrdering Facility: [facility] Address: [address] [place] [address] Performed By: #### 2 777-1, , ####[facility] LABORATORYCLIA [id number] [place] [id number] [place] Anion gap [Moles/Vol] 9 mmol/L Normal 9-18 [facility] Comment on above: Order Comment: Speci men Type: BLOOD SPECIMENOrdering Facility: [facility] Address: [address] [place] [address] Performed By: #### 2 777-1, , ####[facility] LABORATORYCLIA [id number] [place] [address] [place] AST [Catalytic activity/Vol] 22 U/L Normal 14-40 [facility] Comment on above: Order Comment: Speci men Type: BLOOD SPECIMENOrdering Facility: [facility] Address: [address] [place] [address] Performed By: #### 2 777-1, , ####[facility] LABORATORYCLIA [id number] [place] [address] [place] Bilirubin [Mass/Vol] 0.8 mg/dL Normal 0.2-1.3 [facility] Comment on above: Order Comment: Speci men Type: BLOOD SPECIMENOrdering Facility: [facility] Address: [address] [place] [address] Performed By: #### 2 777-1, , ####[facility] LABORATORYCLIA [id number] [place] [id number] [place] Calcium [Mass/Vol] 8.7 mg/dL Normal 8.5-10.2 [facility] Comment on above: Order Comment: Speci men Type: BLOOD SPECIMENOrdering Facility: [facility] Address: [address] [place] [address] Performed By: #### 2 777-1, , ####[facility] LABORATORYCLIA [id number] [place] [id number] [place] Chloride [Moles/Vol] 103 mmol/L Normal 97-105 [facility] Comment on above: Order Comment: Speci men Type: BLOOD SPECIMENOrdering Facility: [facility] Address: [address] [place] [address] Performed By: #### 2 777-1, , ####[facility] LABORATORYCLIA [id number] [place] [address] [place] CO2 [Moles/Vol] 25 mmol/L Normal 22-30 [facility] Comment on above: Order Comment: Speci men Type: BLOOD SPECIMENOrdering Facility: [facility] Address: [address] [place] [address] Performed By: #### 2 777-1, , ####[facility] LABORATORYCLIA [id number] [place] [address] [place] Creatinine [Mass/Vol] 1.04 mg/dL Normal 0.73-1.22 [facility] Comment on above: Order Comment: Speci men Type: BLOOD SPECIMENOrdering Facility: [facility] Address: [address] [place] [address] Performed By: #### 2 777-1, , ####[facility] LABORATORYCLIA [id number] [place] [address] [place] Creatinine and Glomerular filtration rate.predicted panel (S/P/Bld) 78 mL/min/1.73m??? Normal >=60 [facility] Comment on above: Order Comment: Specbrooks men Type: BLOOD SPECIMENOrdering Facility: [facility] Address: [address] [place] [address] Result Comment: Bailey mated Glomerular Filtration Rate [...] GFR. Performed By: #### 2 777-1, , ####[facility] LABORATORYCLIA [id number] [place] [id number] [place] Glucose [Mass/Vol] 111 mg/dL High 74-99 [facility] Comment on above: Order Comment: Speci daniela Type: BLOOD SPECIMENOrdering Facility: [facility] Address: [address] [place] [address] Result Comment: The [place] Diabetes Association (ADA) provides guidance for cutoff [...] Standards of Medical Care in Diabetes 2016, [place] Diabetes [employer]. Diabetes Care. 2016.39(Suppl 1). Performed By: #### 2 777-1, , ####[facility] LABORATORYCLIA [id number] [place] [id number] [place] Potassium [Moles/Vol] 4.2 mmol/L Normal 3.7-5.1 [facility] Comment on above: Order Comment: Speci men Type: BLOOD SPECIMENOrdering Facility: [facility] Address: [address] [place] [address] Performed By: #### 2 777-1, , ####[facility] LABORATORYCLIA [id number] [place] [id number] [place] Protein [Mass/Vol] 6.2 g/dL Low 6.3-8.0 [facility] Comment on above: Order Comment: Speci men Type: BLOOD SPECIMENOrdering Facility: [facility] Address: [address] [place] [address] Performed By: #### 2 777-1, , ####[facility] LABORATORYCLIA [id number] [place] [id number] [place] Sodium [Moles/Vol] 137 mmol/L Normal 136-144 [facility] Comment on above: Order Comment: Speci men Type: BLOOD SPECIMENOrdering Facility: [facility] Address: [address] [place] [address] Performed By: #### 2 777-1, , ####[facility] LABORATORYCLIA [id number] [place] [id number] [place] Urea nitrogen [Mass/Vol] 24 mg/dL Normal 9- [facility] Comment on above: Order Comment: Speci men Type: BLOOD SPECIMENOrdering Facility: [facility] Address: [address] [place] [address] Performed By: #### 2 777-1, 75885-3, ####[facility] LABORATORYCLIA [id number] [place] [id number] [place] Magnesium SerPl-mCncon 08-16 Magnesium [Mass/Vol] 1.8 mg/dL Normal 1.7-2.3 [facility] Comment on above: Order Comment: Speci men Type: BLOOD SPECIMENOrdering Facility: [facility] Address: [address] [place] [address] Performed By: #### 2 777-1, 76567-2, ####[facility] LABORATORYCLIA [id number] [place] [id number] [place] Phosphate SerPl-mCncon 08-16 Phosphate [Mass/Vol] 2.6 mg/dL Low 2.7-4.8 [facility] Comment on above: Order Comment: Speci men Type: BLOOD SPECIMENOrdering Facility: [facility] Address: [address] [place] [address] Performed By: #### 2 777-1, 28791-1, ####[facility] LABORATORYCLIA [id number] [place] [id number] [place] ALLIED HEALTHon 08-15-2023 ALLIED HEALTH Normal [facility] ALLIED HEALTH Normal [facility] Basic metabolic 2000 panelon 08-15-2023 Anion gap [Moles/Vol] 10 mmol/L Normal -18 [facility] Comment on above: Order Comment: Speci men Type: BLOOD SPECIMENOrdering Facility: [facility] Address: [address] [place] [address] Performed By: #### 2 4321-2 ####[facility] LABORATORYCLIA [id number] [place] [id number] [place] Calcium [Mass/Vol] 8.8 mg/dL Normal 8.5-10.2 [facility] Comment on above: Order Comment: Speci men Type: BLOOD SPECIMENOrdering Facility: [facility] Address: [address] [place] [address] Performed By: #### 2 4321-2 ####[facility] LABORATORYCLIA [id number] [place] [id number] [place] Chloride [Moles/Vol] 101 mmol/L Normal 97-105 [facility] Comment on above: Order Comment: Speci men Type: BLOOD SPECIMENOrdering Facility: [facility] Address: [address] [place] [address] Performed By: #### 2 4321-2 ####[facility] LABORATORYCLIA [id number] [place] [address] [place] CO2 [Moles/Vol] 26 mmol/L Normal 22-30 [facility] Comment on above: Order Comment: Speci men Type: BLOOD SPECIMENOrdering Facility: [facility] Address: [address] [place] [address] Performed By: #### 2 4321-2 ####[facility] LABORATORYCLIA [id number] [place] [id number] [place] Creatinine [Mass/Vol] 1.08 mg/dL Normal 0.73-1.22 [facility] Comment on above: Order Comment: Speci men Type: BLOOD SPECIMENOrdering Facility: [facility] Address: [address] [place] [address] Performed By: #### 2 4321-2 ####[facility] LABORATORYCLIA [id number] [place] [id number] [place] Creatinine and Glomerular filtration rate.predicted panel (S/P/Bld) 75 mL/min/1.73m??? Normal >=60 [facility] Comment on above: Order Comment: Speci men Type: BLOOD SPECIMENOrdering Facility: [facility] Address: [address] [place] [address] Result Comment: Bailey mated Glomerular Filtration Rate (eGFR) is calculated using the 2021 CKD-EPI creatinine equation. This equation utilizes serum creatinine, sex, and age as parameters. The creatinine assay has traceable calibration to isotope dilution-mass spectrometry. Refer to KDIGO guidelines for clinical interpretation. In patients with unstable renal function, e.g. those with acute kidney injury, the eGFR may not accurately reflect actual GFR. Performed By: #### 2 4321-2 ####[facility] LABORATORYCLIA [id number] [place] [id number] [place] Glucose [Mass/Vol] 92 mg/dL Normal 74-99 [facility] Comment on above: Order Comment: Arben suarez Type: BLOOD SPECIMENOrdering Facility: [facility] Address: [address] [place] [address] Result Comment: The [place] Diabetes Association (ADA) provides guidance for cutoff [...] Standards of Medical Care in Diabetes 2016, [place] Diabetes Association. Diabetes Care. 2016.39(Suppl 1). Performed By: #### 2 4321-2 ####[facility] LABORATORYCLIA [id number] [place] [id number] [place] Potassium [Moles/Vol] 4.6 mmol/L Normal 3.7-5.1 [facility] Comment on above: Order Comment: Arben suarez Type: BLOOD SPECIMENOrdering Facility: [facility] Address: [address] [place] [address] Performed By: #### 2 4321-2 ####[facility] LABORATORYCLIA [id number] [place] [id number] [place] Sodium [Moles/Vol] 137 mmol/L Normal 136-144 [facility] Comment on above: Order Comment: Miai men Type: BLOOD SPECIMENOrdering Facility: [facility] Address: [address] [place] [place] [address] Performed By: #### 2 4321-2 ####[facility] LABORATORYCLIA [id number] [place] [address] [place] Urea nitrogen [Mass/Vol] 28 mg/dL High 9-24 [facility] Comment on above: Order Comment: Speci men Type: BLOOD SPECIMENOrdering Facility: [facility] Address: [address] [place] [address] Performed By: #### 2 4321-2 ####[facility] LABORATORYCLIA [id number] [place] [address] [place] CASE MANAGEMon 08-15-2023 CASE MANAGEM Normal [facility] CASE MANAGEM Normal [facility] CONSULT PROGon 08-15-2023 CONSULT PROG Normal [facility] Comprehensive metabolic 2000 panelon 08-15-2023 Albumin [Mass/Vol] 3.0 g/dL Low 3.9-4.9 [facility] Comment on above: Order Comment: Speci men Type: BLOOD SPECIMENOrdering Facility: [facility] Address: [address] [place] [address] Performed By: #### 1 9123-9, 77490-0, 2777-1 ####[facility] LABORATORYCLIA [id number] [place] [id number] [place] ALP [Catalytic activity/Vol] 123 U/L High 38-113 [facility] Comment on above: Order Comment: Speci men Type: BLOOD SPECIMENOrdering Facility: [facility] Address: [address] [place] [address] Performed By: #### 1 9123-9, 08430-2, 2777-1 ####[facility] LABORATORYCLIA [id number] [place] [id number] [place] ALT [Catalytic activity/Vol] 24 U/L Normal 10-54 [facility] Comment on above: Order Comment: Speci men Type: BLOOD SPECIMENOrdering Facility: [facility] Address: [address] [place] [address] Performed By: #### 1 9123-9, 40923-1, 2776-08 ####[facility] LABORATORYCLIA [id number] [place] [address] [place] Anion gap [Moles/Vol] 8 mmol/L Low 9-18 [facility] Comment on above: Order Comment: Speci men Type: BLOOD SPECIMENOrdering Facility: [facility] Address: [address] [place] [address] Performed By: #### 1 9123-9, , 2776-08 ####[facility] LABORATORYCLIA [id number] [place] [id number] [place] AST [Catalytic activity/Vol] 26 U/L Normal 14-40 [facility] Comment on above: Order Comment: Speci men Type: BLOOD SPECIMENOrdering Facility: [facility] Address: [address] [place] [address] Performed By: #### 1 9123-9, , 2776-08 ####[facility] LABORATORYCLIA [id number] [place] [address] [place] Bilirubin [Mass/Vol] 0.9 mg/dL Normal 0.2-1.3 [facility] Comment on above: Order Comment: Speci men Type: BLOOD SPECIMENOrdering Facility: [facility] Address: [address] [place] [address] Performed By: #### 1 9123-9, 34881-6, 2776-08 ####[facility] LABORATORYCLIA [id number] [place] [id number] [place] Calcium [Mass/Vol] 8.9 mg/dL Normal 8.5-10.2 [facility] Comment on above: Order Comment: Speci men Type: BLOOD SPECIMENOrdering Facility: [facility] Address: [address] [place] [address] Performed By: #### 1 9123-9, 90849-5, 2776- ####[facility] LABORATORYCLIA [id number] [place] [id number] [place] Chloride [Moles/Vol] 103 mmol/L Normal 97-105 [facility] Comment on above: Order Comment: Speci men Type: BLOOD SPECIMENOrdering Facility: [facility] Address: [address] [place] [address] Performed By: #### 1 9123-9, 54604-5, 2776-08 ####[facility]ORATORYCLIA [id number] [place] [address] [place] CO2 [Moles/Vol] 28 mmol/L Normal 22-30 [facility] Comment on above: Order Comment: Speci men Type: BLOOD SPECIMENOrdering Facility: [facility] Address: [address], [place] [address] Performed By: #### 1 9123-9, , 2776-08 ####GEOVANNA LABORATORYCLIA [id number] [address] [facility] Creatinine [Mass/Vol] 1.01 mg/dL Normal 0.73-1.22 [facility] Comment on above: Order Comment: Speci men Type: BLOOD SPECIMENOrdering Facility: [facility] Address: [address] [place] [address] Performed By: #### 1 9123-9, , 2776-08 ####GEOVANNA LABORATORYCLIA [id number] [address] Creatinine and Glomerular filtration rate.predicted panel (S/P/Bld) 81 mL/min/1.73m??? Normal >=60 [facility] Comment on above: Order Comment: Speci men Type: BLOOD SPECIMENOrdering Facility: [facility] Address: [address] [place] [address] Result Comment: Bailey mated Glomerular Filtration Rate [...] actual GFR. Performed By: #### 1 9123-9, 87353-4, 2776-08 ####GEOVANNA LABORATORYCLIA [id number] [place] [address] [place] Glucose [Mass/Vol] 91 mg/dL Normal 74-99 [facility] Comment on above: Order Comment: Speci men Type: BLOOD SPECIMENOrdering Facility: [facility] Address: [address] [place] [address] Result Comment: The [place] Diabetes Association (ADA) provides guidance for cutoff [...] Standards of Medical Care in Diabetes 2016, [place] Diabetes Association. Diabetes Care. 2016.39(Suppl 1). Performed By: #### 1 9123-9, 13267-7, 27702-22 ####LORETTO LABORATORYCLIA [id number] [place] [id number] [place] Potassium [Moles/Vol] 5.3 mmol/L High 3.7-5.1 [facility] Comment on above: Order Comment: Arben daniela Type: BLOOD SPECIMENOrdering Facility: [facility] Address: [address] [place] [address] Performed By: #### 1 9123-9, 60382-9, 27702-22 ####LORETTO LABORATORYIA [id number] [place] [id number] [place] Protein [Mass/Vol] 6.1 g/dL Low 6.3-8.0 [facility] Comment on above: Order Comment: Speci men Type: BLOOD SPECIMENOrdering Facility: [facility] Address: [address] [place] [address] Performed By: #### 1 9123-9, 24030-2, 2777- ####LORETTO LABORATORYCLIA [id number] [place] [address] [place] Sodium [Moles/Vol] 139 mmol/L Normal 136-144 [facility] Comment on above: Order Comment: Speci men Type: BLOOD SPECIMENOrdering Facility: [facility] Address: [place] [address] Performed By: #### 1 9123-9, 85612-4, 2777-1 ####LORETTO LABORATORYCLIA [id number] [place] [id number] [place] Urea nitrogen [Mass/Vol] 30 mg/dL High 9-24 [facility] Comment on above: Order Comment: Speci men Type: BLOOD SPECIMENOrdering Facility: [facility] Address: [place] [address] Performed By: #### 1 9123-9, 46521-9, 2776-08 ####LORETTO LABORATORYCLIA [id number] [place] [address] [place] Magnesium SerPl-ncon 08-15 Magnesium [Mass/Vol] 1.9 mg/dL Normal 1.7-2.3 [facility] Comment on above: Order Comment: Speci men Type: BLOOD SPECIMENOrdering Facility: [facility] Address: [place] [address] Performed By: #### 1 9123-9, 90928-8, 2776-08 ####LORETTO LABORATORYCLIA [id number] [place] [address] [facility] [place] NURSING PROGon 08-15-2023 NURSING PROG Normal [facility] NUTRITIONon 08-15-2023 NUTRITION Normal [facility] Phosphate SerPl-mCncon 08-15 Phosphate [Mass/Vol] 2.5 mg/dL Low 2.7-4.8 [facility] Comment on above: Order Comment: Speci men Type: BLOOD SPECIMENOrdering Facility: [facility] Address: [place] [address] Performed By: #### 1 9123-9, 19774-0, 2777- ####LORETTO LABORATORYCLIA [id number] [place] [id number] [place] XR ABDOMEN 1V SUPINEon 08-15 XR ABDOMEN 1V SUPINE Normal [facility] ANES POSTPROC EVALon 023 ANES POSTPROC EVAL Normal [facility] ANES PRE-OPon 08-14-2023 ANES PRE-OP Normal [facility] CASE MANAGEMon 08-14-2023 CASE MANAGEM Normal [facility] CNCOon 08-14-2023 CNCO Letter Text Normal [facility] metabolic 2000 panelon 08-14-2023 Albumin [Mass/Vol] 3.2 g/dL Low 3.9-4.9 [facility] Comment on above: Order Comment: Speci men Type: BLOOD SPECIMENOrdering Facility: [facility] Address: [address] [place] [address] Performed By: #### 2 4323-8, , 2776-08 ####LORETTO LABORATORYCLIA [id number] [place] [address] [place] ALP [Catalytic activity/Vol] 122 U/L High 38-113 [facility] Comment on above: Order Comment: Speci men Type: BLOOD SPECIMENOrdering Facility: [facility] Address: [address] [place] [address] Performed By: #### 2 4323-8, , 2776-08 ####LORETTO LABORATORYCLIA [id number] [place] [id number] [place] ALT [Catalytic activity/Vol] 19 U/L Normal 10-54 [facility] Comment on above: Order Comment: Speci men Type: BLOOD SPECIMENOrdering Facility: [facility] Address: [address] [place] [address] Performed By: #### 2 4323-8, , 2776-08 ####LORETTO LABORATORYCLIA [id number] [place] [id number] [place] Anion gap [Moles/Vol] 13 mmol/L Normal 9-18 [facility] Comment on above: Order Comment: Speci men Type: BLOOD SPECIMENOrdering Facility: [facility] Address: [address] [place] [address] Performed By: #### 2 4323-8, , 2776-08 ####LORETTO LABORATORYCLIA [id number] [place] [address] [place] AST [Catalytic activity/Vol] 26 U/L Normal 14-40 [facility] Comment on above: Order Comment: Speci men Type: BLOOD SPECIMENOrdering Facility: [facility] Address: [address] [place] [address] Performed By: #### 2 4323-8, , 2776-08 ####[facility] LABORATORYCLIA [id number] [place] [id number] [place] Bilirubin [Mass/Vol] 1.0 mg/dL Normal 0.2-1.3 [facility] Comment on above: Order Comment: Speci men Type: BLOOD SPECIMENOrdering Facility: [facility] Address: [address] [place] [address] Performed By: #### 2 4322-8, , 2776-08 ####LORETTO LABORATORYCLIA [id number] [place] [id number] [place] Calcium [Mass/Vol] 9.0 mg/dL Normal 8.5-10.2 [facility] Comment on above: Order Comment: Speci men Type: BLOOD SPECIMENOrdering Facility: [facility] Address: [address] [place] [address] Performed By: #### 2 4323-8, , 2776-08 ####[facility] LABORATORYCLIA [id number] [place] [id number] [place] Chloride [Moles/Vol] 100 mmol/L Normal 97-105 [facility] Comment on above: Order Comment: Speci men Type: BLOOD SPECIMENOrdering Facility: [facility] Address: [address] [place] [address] Performed By: #### 2 4323-8, , 2776-08 ####[facility] LABORATORYCLIA [id number] [place] [address] [place] CO2 [Moles/Vol] 26 mmol/L Normal 22-30 [facility] Comment on above: Order Comment: Speci men Type: BLOOD SPECIMENOrdering Facility: [facility] Address: [address] [place] [address] Performed By: #### 2 4323-8, , 2776-08 ####LORETTO LABORATORYCLIA [id number] [place] [address] [place] Creatinine [Mass/Vol] 1.12 mg/dL Normal 0.73-1.22 [facility] Comment on above: Order Comment: Speci men Type: BLOOD SPECIMENOrdering Facility: [facility] Address: [address] [place] [address] Performed By: #### 2 4323-8, , 2776-08 ####LORETTO LABORATORYCLIA [id number] [place] [address] [place] Creatinine and Glomerular filtration rate.predicted panel (S/P/Bld) 72 mL/min/1.73m??? Normal >=60 [facility] Comment on above: Order Comment: Speci men Type: BLOOD SPECIMENOrdering Facility: [facility] Address: [address] [place] [address] Result Comment: Bailey mated Glomerular Filtration Rate [...] Performed By: #### 2 4323-8, , 2776-08 ####LORETTO LABORATORYCLIA [id number] [place] [id number] [place] Glucose [Mass/Vol] 127 mg/dL High 74-99 [facility] Comment on above: Order Comment: Speci daniela Type: BLOOD SPECIMENOrdering Facility: [facility] Address: [address] [place] [address] Result Comment: The [place] Diabetes Association (ADA) provides guidance for cutoff [...] Standards of Medical Care in Diabetes 2016, [place] Diabetes Association. Diabetes Care. 2016.39(Suppl 1). Performed By: #### 2 4323-8, , 2776-08 ####GEOVANNA LABORATORYCLIA [id number] [place] [id number] [place] Potassium [Moles/Vol] 4.1 mmol/L Normal 3.7-5.1 [facility] Comment on above: Order Comment: Speci men Type: BLOOD SPECIMENOrdering Facility: [facility] Address: [address] [place] [address] Performed By: #### 2 43238, , 2776-08 ####GEOVANNA LABORATORYCLIA [id number] [place] [id number] [place] Protein [Mass/Vol] 6.6 g/dL Normal 6.3-8.0 [facility] Comment on above: Order Comment: Speci men Type: BLOOD SPECIMENOrdering Facility: [facility] Address: [address] [place] [address] Performed By: #### 2 4323-8, , 2776-08 ####GEOVANNA LABORATORYCLIA [id number] [place] [id number] [place] Sodium [Moles/Vol] 139 mmol/L Normal 136-144 [facility] Comment on above: Order Comment: Speci men Type: BLOOD SPECIMENOrdering Facility: [facility] Address: [address] [place] [address] Performed By: #### 2 4323-8, , 2776-08 ####GEOVANNA LABORATORYCLIA [id number] [place] [id number] [place] Urea nitrogen [Mass/Vol] 34 mg/dL High 05-18 [facility] Comment on above: Order Comment: Speci men Type: BLOOD SPECIMENOrdering Facility: [facility] Address: [address] [place] [id number] Performed By: #### 2 4323-8, 83500-0, 2777-1 ####LORETTO LABORATORYCLIA [id number] [place] [id number] [place] HISTORY PHYSICALon HISTORY PHYSICAL Normal [facility] Magnesium SerPl-ncon 08-14 Magnesium [Mass/Vol] 2.0 mg/dL Normal 1.7-2.3 [facility] Comment on above: Order Comment: Speci men Type: BLOOD SPECIMENOrdering Facility: [facility] Address: [address] [place] [id number] Performed By: #### 2 4323-8, , 2777- ####LORETTO LABORATORYCLIA [id number] [place] [id number] [place] NURSING PROGon 08-14-2023 NURSING PROG Normal [facility] NURSING PROG Normal [facility] NURSING PROG Normal [facility] NUTRITIONon 08-14-2023 NUTRITION Normal [facility] Phosphate SerPl-ncon 08-14 Phosphate [Mass/Vol] 2.9 mg/dL Normal 2.7-4.8 [facility] Comment on above: Order Comment: Speci men Type: BLOOD SPECIMENOrdering Facility: [facility] Address: [address] [place] [id number] Performed By: #### 2 4323-8, 65005-2, 2777-1 ####LORETTO LABORATORYCLIA [id number] [place] [id number] [place] Upper GI endoscopyon 023 Upper GI endoscopy Normal [facility] XR ABDOMEN 1V SUPINEon 08-14 XR ABDOMEN 1V SUPINE Normal [facility] XR ABDOMEN 1V SUPINE Normal [facility] ALLIED HEALTHon 08-13-2023 ALLIED HEALTH [facility] ANES POSTPROC EVALon 023 ANES POSTPROC EVAL Normal [facility] ANES PRE-OPon 08-13-2023 ANES PRE-OP Normal [facility] CASE MANAGEMon 08-13-2023 CASE MANAGEM Normal [facility] CNPNon 08-13-2023 CNPN Telephone ([id number]) -------- AISHA JULIEN ([id number]) 1955 M Date Time Provider Department 08/13/23 [facility] [id number] During your visit today, we recorded the following information about you: Jessie Zamora RN 08/13/2023 10:25 AM Signed Call made to [employer] [facility] - patient employer to get [facility] paperwork for him. Left a with Kindra. Gave her cell number to call back and/or fax number to fax paperwork. Jessie Zamora RN 08/14/2023 9:14 AM Signed Kindra from [employer] [facility] returned call yesterday stating that she [...] RN - Fully Assessed Reason for Visit: [facility] Paperwork [4185] Prescriptions as of 08/14/2023 [...] NaCl 0.45% iv infusion - phenol 1 [place] (CHLORASEPTIC) - NaCl 0.9% iv flush [...] Status:Closed by JESSIE ZAMORA on 08/14/23 Normal [facility] CYTOLOGY NON-GYNon 3 ADEQUACY INTERPRETATION Normal [facility] Comment on above: Order Comment: Speci men Type: SPECIMEN OBTAINED BY ASPIRATIONOrdering Facility: [facility] Address: [address] [place] [address] Result Comment: A: # 1 Lymphoid sampleB: #1, 2 Lesional cells present. Monotonous cells could be low-grade neuroendocrine tumor.Dr. Dsouza / Richard Farrell letter in the above intra-procedural assessment refers to a unique site. The specific site is indicated in the final diagnosis portion of the report. Each number in this assessment references a discrete evaluation episode.Intra-procedural assessment performed at [facility], [address] [place] [address] Performed By: #### C YTONON ####LORETTO LABORATORYCLIA [id number] [address] STATES OF [facility] CASE REPORT Normal [facility] Comment on above: Order Comment: Speci men Type: SPECIMEN OBTAINED BY ASPIRATIONOrdering Facility: [facility] Address: [address] [place] [address] Result Comment: [facility] Cytology Report Case: [id number] Provider: Stephanie Avery MD Collected: 08/13/2023 11:22 AMOrdering Location: [facility] Received: 08/13/2023 12:00 PM Endoscopy - ENDOPathologist: Darrius Dsouza MDSpecimens: A) - LYMPH NODE FINE NEEDLE ASPIRATION, PORTAL LYMPH NODE B) - PANCREAS FINE NEEDLE ASPIRATION, UNCINATE PROCESS Performed By: #### C YTONON ####[facility] LABORATORYCLIA [id number] [address] [place] CLINICAL HISTORY Weight loss Normal [facility] Comment on above: Order Comment: Speci men Type: SPECIMEN OBTAINED BY ASPIRATIONOrdering Facility: [facility] Address: [address] [place] [address] Result Comment: Lupillo kenny outlet obstructionTachycardiaHypomagnesemiaAKI Performed By: #### C YTONON ####L[facility] LABORATORYCLIA [id number] [place] [address] [place] DIAGNOSIS COMMENT Normal [facility] Comment on above: Order Comment: Speci men Type: SPECIMEN OBTAINED BY ASPIRATIONOrdering Facility: [facility] Address: [address] [place] [address] Result Comment: A. T he diagnostic neoplastic cells are predominantly found on the ThinPrep slide. The discrepancy between the RIVERA diagnosis of lymphoid sample and the final diagnosis was reported by secure staff message to Dr. Avery on 08/14/2023 at 1101.B. This part of the case was interpreted in conjunction with the related surgical pathology case [id number] with diagnostic concurrence. Performed By: #### C YTONON ####LOR[facility]TO LABORATORYCLIA [id number] [address] FINAL DIAGNOSIS [facility] Comment on above: Order Comment: Speci men Type: SPECIMEN OBTAINED BY ASPIRATIONOrdering Facility: [facility] Address: [address] [place] [address] Result Comment: A - LYMPH NODE FINE [...] Alcohol Fixed Performed By: #### C YTONON ####L[facility] LABORATORYCLIA [id number] [address] FINAL PERFORMING LAB Normal [facility] Comment on above: Order Comment: Speci men Type: SPECIMEN OBTAINED BY ASPIRATIONOrdering Facility: [facility] Address: [address] [place] [address] Result Comment: Tech nical component, auto servicer screening performed at [facility], [address] [place] [address] CLIA# [id number] interpretation performed at [facility], [address] [place] [address] CLIA# [id number] Director: Darrius Dsouza M.D. Performed By: #### C YTLADAN ####LORET[facility] LABORATORYCLIA [id number] [place] [id number] [place] GROSS DESCRIPTION Normal [facility] Comment on above: Order Comment: Speci men Type: SPECIMEN OBTAINED BY ASPIRATIONOrdering Facility: [facility] Address: [address] [place] [address] Result Comment: A. L YMPH NODE FINE NEEDLE [id number] cc clear pink CytoLyt with scant particles. ThinPrep and Cell Block prepared and 2 smears (1 air dried and 1 fixed).B. PANCREAS FINE NEEDLE [id number] cc clear colorless CytoLyt with scant particles. ThinPrep and Cell Block prepared and 4 smears (2 air dried and 2 fixed). Performed By: #### C YTLADAN ####LORETTO LABORATORYCLIA [id number] [place] [address] [place] Comprehensive metabolic 2000 panelon 08-13-2023 Albumin [Mass/Vol] 3.8 g/dL Low 3.9-4.9 [facility] Comment on above: Order Comment: Speci men Type: BLOOD SPECIMENOrdering Facility: [facility] Address: [address] [place] [address] Performed By: #### 1 9123-9, 91809-9, 2777- ####[facility] LABORATORYCLIA [id number] [address] [place] ALP [Catalytic activity/Vol] 128 U/L High 38-113 [facility] Comment on above: Order Comment: Speci men Type: BLOOD SPECIMENOrdering Facility: [facility] Address: [address] [place] [address] Performed By: #### 1 9123-9, 56625-5, 2777-1 ####[facility] LABORATORYCLIA [id number] [address] [place] ALT [Catalytic activity/Vol] 19 U/L Normal 10-54 [facility] Comment on above: Order Comment: Speci men Type: BLOOD SPECIMENOrdering Facility: [facility] Address: [address] [place] [address] Performed By: #### 1 9123-9, 50045-1, 2776- ####LORETTO LABORATORYCLIA [id number] [place] [address] [place] Anion gap [Moles/Vol] 12 mmol/L Normal 9-18 [facility] Comment on above: Order Comment: Speci men Type: BLOOD SPECIMENOrdering Facility: [facility] Address: [address] [place] [address] Performed By: #### 1 9123-9, 80093-6, 2776- ####L[facility] LABORATORYCLIA [id number] [place] [id number] [place] AST [Catalytic activity/Vol] 22 U/L Normal 14-40 [facility] Comment on above: Order Comment: Speci men Type: BLOOD SPECIMENOrdering Facility: [facility] Address: [address] [place] [address] Performed By: #### 1 9123-9, , 2776-08 ####L[facility] LABORATORYCLIA [id number] [place] [id number] [place] Bilirubin [Mass/Vol] 1.0 mg/dL Normal 0.2-1.3 [facility] Comment on above: Order Comment: Speci men Type: BLOOD SPECIMENOrdering Facility: [facility] Address: [address] [place] [address] Performed By: #### 1 9123-9, 31665-6, 2776-08 ####[facility] LABORATORYCLIA [id number] [place] [address] [place] Calcium [Mass/Vol] 9.5 mg/dL Normal 8.5-10.2 [facility] Comment on above: Order Comment: Speci men Type: BLOOD SPECIMENOrdering Facility: [facility] Address: [address] [place] [address] Performed By: #### 1 9123-9, 43287-4, 2776- ####[facility] LABORATORYCLIA [id number] [place] [id number] [place] Chloride [Moles/Vol] 95 mmol/L Low 97-105 [facility] Comment on above: Order Comment: Speci men Type: BLOOD SPECIMENOrdering Facility: [facility] Address: [address] [place] [address] Performed By: #### 1 9123-9, , 2776-08 ####[facility] LABORATORYCLIA [id number] [place] [id number] [place] CO2 [Moles/Vol] 29 mmol/L Normal 22-30 [facility] Comment on above: Order Comment: Speci men Type: BLOOD SPECIMENOrdering Facility: [facility] Address: [address] [place] [address] Performed By: #### 1 9123-9, , 2776-08 ####[facility] LABORATORYCLIA [id number] [place] [id number] [place] Creatinine [Mass/Vol] 1.19 mg/dL Normal 0.73-1.22 [facility] Comment on above: Order Comment: Speci men Type: BLOOD SPECIMENOrdering Facility: [facility] Address: [address] [place] [address] Performed By: #### 1 9123-9, , 2776-08 ####GE[facility] LABORATORYCLIA [id number] [address] Creatinine and Glomerular filtration rate.predicted panel (S/P/Bld) 67 mL/min/1.73m??? Normal >=60 [facility] Comment on above: Order Comment: Speci men Type: BLOOD SPECIMENOrdering Facility: [facility] Address: [address] [place] [address] Result Comment: Bailey mated Glomerular Filtration Rate [...] actual GFR. Performed By: #### 1 9123-9, , 2776-08 ####GE[facility] LABORATORYCLIA [id number] [place] [id number] [place] Glucose [Mass/Vol] 124 mg/dL High 74-99 [facility] Comment on above: Order Comment: Speci men Type: BLOOD SPECIMENOrdering Facility: [facility] Address: [address] [place] [address] Result Comment: The [place] Diabetes Association (ADA) provides guidance for cutoff [...] Standards of Medical Care in Diabetes 2016, [place] Diabetes [employer]. Diabetes Care. 2016.39(Suppl 1). Performed By: #### 1 9123-9, 23714-3, 2776-08 ####[facility] LABORATORYCLIA [id number] [place] [id number] [place] Potassium [Moles/Vol] 3.5 mmol/L Low 3.7-5.1 [facility] Comment on above: Order Comment: Miai men Type: BLOOD SPECIMENOrdering Facility: [facility] Address: [address] [place] [address] Performed By: #### 1 9123-9, 42871-9, 2776-08 ####[facility] LABORATORYCLIA [id number] [place] [id number] [place] Protein [Mass/Vol] 7.6 g/dL Normal 6.3-8.0 [facility] Comment on above: Order Comment: Miai men Type: BLOOD SPECIMENOrdering Facility: [facility] Address: [address] [place] [address] Performed By: #### 1 9123-9, 77660-0, 2776-08 ####GE[facility] LABORATORYCLIA [id number] [place] [address] [place] Sodium [Moles/Vol] 136 mmol/L Normal 136-144 [facility] Comment on above: Order Comment: Speci men Type: BLOOD SPECIMENOrdering Facility: [facility] Address: [place] [address] Performed By: #### 1 9123-9, 40424-7, 2777-1 ####[facility] LABORATORYCLIA [id number] [place] [id number] [place] Urea nitrogen [Mass/Vol] 37 mg/dL High 05-18 [facility] Comment on above: Order Comment: Speci men Type: BLOOD SPECIMENOrdering Facility: [facility] Address: [address] [place] [address] Performed By: #### 1 9123-9, 39848-4, 2777- ####[facility] LABORATORYCLIA [id number] [place] [id number] [place] HISTORY PHYSICALon HISTORY PHYSICAL Normal [facility] Magnesium SerPl-ncon 08-13 Magnesium [Mass/Vol] 2.2 mg/dL Normal 1.7-2.3 [facility] Comment on above: Order Comment: Speci men Type: BLOOD SPECIMENOrdering Facility: [facility] Address: [place] [address] Performed By: #### 1 9123-9, 60086-0, 2777- ####[facility] LABORATORYCLIA [id number] [place] [id number] [place] NURSING PROGon 08-13-2023 NURSING PROG Normal [facility] NURSING PROG Normal [facility] NURSING PROG Normal [facility] NUTRITIONon 08-13-2023 NUTRITION Normal [facility] Phosphate SerPl-mCncon 08-13 Phosphate [Mass/Vol] 3.2 mg/dL Normal 2.7-4.8 [facility] Comment on above: Order Comment: Speci men Type: BLOOD SPECIMENOrdering Facility: [facility] Address: [address] [place] [address] Performed By: #### 1 9123-9, 81190-9, 2777-1 ####[facility] LABORATORYCLIA [id number] [address] [place] SURGICAL PATHOLOGYon 023 CASE REPORT Normal [facility] Comment on above: Order Comment: Speci men Type: TISSUE SPECIMENOrdering Facility: [facility] Address: [address] [place] [address] Result Comment: Surg ical Pathology Report Case: [id number] Provider: Stephanie Avery MD Collected: 08/13/2023 11:14 AMOrdering Location: [facility] Received: 08/13/2023 01:36 PM Endoscopy - ENDOPathologist: Robby Jorgensen MD, PhDSpecimens: A) - PANCREAS BIOPSY, core needle biopsy of uncinate process to r/o neuro endocrine tumor B) - LYMPH NODE BIOPSY, core needle biopsy of portal lymph node Performed By: #### S ####[facility] LABCLIA [id number] [address] DIAGNOSIS COMMENT Normal [facility] Comment on above: Order Comment: Speci men Type: TISSUE SPECIMENOrdering Facility: [facility] Address: [address] [place] [address] Result Comment: Manny romo Developed Test (LDT) Disclaimer:Performance characteristics of immunohistochemical, immunofluorescent and chromogenic in-situ hybridization tests have been determined by the performing laboratory within [facility]???s [facility] [place] ([facility], [facility], [facility], [facility], [facility], [facility], or [facility]) in a manner consistent with CLIA requirements. One or more of these tests have not been cleared or approved by the FDA. [facility] is regulated under CLIA as qualified to perform high-complexity testing. These tests are used for clinical purposes. They should not be regarded as investigational or for research. Positive and negative controls stain appropriately. Performed By: #### S ####[facility] LABCLIA [id number] [address] OF [facility] FINAL DIAGNOSIS Normal [facility] Comment on above: Order Comment: Speci daniela Type: TISSUE SPECIMENOrdering Facility: [facility] Address: [address] [place] [address] Result Comment: A. 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 Lymph node, biopsy:-Predominantly hemorrhage admixed with some lymphoid tissue and smooth muscle.-No evidence of neoplasm in this material. Performed By: #### S ####[facility] LABCLIA [id number] [address] [place] FINAL PERFORMING LAB Normal [facility] Comment on above: Order Comment: Speci daniela Type: TISSUE SPECIMENOrdering Facility: [facility] Address: [address] [place] [address] Result Comment: Diag nostic interpretation performed at [facility], [facility] [place] [address] CLIA# [id number] Director: Taras Treadwell M.D. Performed By: #### S ####[facility] LABCLIA [id number] [address] [place] GROSS DESCRIPTION Normal [facility] Comment on above: Order Comment: Arben suarez Type: TISSUE SPECIMENOrdering Facility: [facility] Address: [address] [place] [address] Result Comment: A. P ANCREAS BIOPSYReceived in [...] submitted in one cassette.Gross examination performed at [facility] [address] [place] [address].AMS August 13, 2023 6:15 PM Performed By: #### S ####[facility] LABCLIA [id number] [facility] [address] [place] 08-13-2023 [place] Normal [facility] XR ABDOMEN 1V SUPINEon 08-13 XR ABDOMEN 1V SUPINE Normal [facility] Bilirub Conj SerPl-mCncon Bilirubin.conjugated [Mass/Vol] 0.4 mg/dL High <0.2 [facility] Comment on above: Order Comment: Speci men Type: BLOOD SPECIMENOrdering Facility: [facility] Address: [address] [place] [address] Performed By: #### 1 5152-2, 60201-8, 2571-8, 55033-9 ####[facility] LABORATORYCLIA [id number] [place] [id number] [facility] [place] CASE MANAGEMon 08-12-2023 CASE MANAGEM Normal [facility] CBC panel Auto (Bld)on 08-12 Erythrocyte distribution width (RBC) [Ratio] 11.9 % Normal 11.5-15.0 [facility] Comment on above: Order Comment: Speci men Type: BLOOD SPECIMENOrdering Facility: [facility] Address: [address] [place] [address] Performed By: #### 5 8410-2 ####[facility] LABORATORYCLIA [id number] [place] [id number] [place] Hematocrit (Bld) [Volume fraction] 44.8 % Normal 39.0-51.0 [facility] Comment on above: Order Comment: Speci men Type: BLOOD SPECIMENOrdering Facility: [facility] Address: [address] [place] [address] Performed By: #### 5 8410-2 ####[facility] LABORATORYCLIA [id number] [place] [id number] [place] Hemoglobin (Bld) [Mass/Vol] 14.9 g/dL Normal 13.0-17.0 [facility] Comment on above: Order Comment: Speci men Type: BLOOD SPECIMENOrdering Facility: [facility] Address: [address] [place] [address] Performed By: #### 5 8410-2 ####[facility] LABORATORYCLIA [id number] [address] MCH (RBC) [Entitic mass] 29.2 pg Normal 26.0-34.0 [facility] Comment on above: Order Comment: Speci men Type: BLOOD SPECIMENOrdering Facility: [facility] Address: [address] [place] [address] Performed By: #### 5 8410-2 ####[facility] LABORATORYCLIA [id number] [address] MCHC (RBC) [Mass/Vol] 33.3 g/dL Normal 30.5-36.0 [facility] Comment on above: Order Comment: Speci men Type: BLOOD SPECIMENOrdering Facility: [facility] Address: [address] [place] [address] Performed By: #### 5 8410-2 ####[facility] LABORATORYCLIA [id number] [address] MCV (RBC) [Entitic vol] 87.7 fL Normal 80.0-100.0 [facility] Comment on above: Order Comment: Speci men Type: BLOOD SPECIMENOrdering Facility: [facility] Address: [address] [place] [address] Performed By: #### 5 8410-2 ####[facility] LABORATORYCLIA [id number] [address] [place] Nucleated RBC (Bld) [#/Vol] 10*3/uL Normal <0.01 [facility] Comment on above: Order Comment: Speci men Type: BLOOD SPECIMENOrdering Facility: [facility] Address: [address] [place] [address] Performed By: #### 5 8410-2 ####[facility] LABORATORYCLIA [id number] [place] [address] [place] Platelet mean volume (Bld) [Entitic vol] 11.2 fL Normal 9.0-12.7 [facility] Comment on above: Order Comment: Speci men Type: BLOOD SPECIMENOrdering Facility: [facility] Address: [address] [place] [address] Performed By: #### 5 8410-2 ####[facility] LABORATORYCLIA [id number] [place] [id number] [place] Platelets (Bld) [#/Vol] 273 10*3/uL Normal 150-400 [facility] Comment on above: Order Comment: Speci men Type: BLOOD SPECIMENOrdering Facility: [facility] Address: [address] [place] [address] Performed By: #### 5 8410-2 ####[facility] LABORATORYCLIA [id number] [place] [address] [place] RBC (Bld) [#/Vol] 5.11 10*6/uL Normal 4.20-6.00 [facility] Comment on above: Order Comment: Speci men Type: BLOOD SPECIMENOrdering Facility: [facility] Address: [address] [place] [address] Performed By: #### 5 8410-2 ####[facility] LABORATORYCLIA [id number] [place] [id number] [place] WBC (Bld) [#/Vol] 11.13 10*3/uL High 3.70-11.00 [facility] Comment on above: Order Comment: Speci men Type: BLOOD SPECIMENOrdering Facility: [facility] Address: [address] [place] [address] Performed By: #### 5 8410-2 ####[facility] LABORATORYCLIA [id number] [place] [id number] [place] Comprehensive metabolic 2000 panelon 08-12-2023 Albumin [Mass/Vol] 3.7 g/dL Low 3.9-4.9 [facility] Comment on above: Order Comment: Speci men Type: BLOOD SPECIMENOrdering Facility: [facility] Address: [address] [place] [address] Performed By: #### 1 5152-2, 68190-7, 2571-8, 03685-1 ####[facility] LABORATORYCLIA [id number] [place] [id number] [place] ALP [Catalytic activity/Vol] 124 U/L High 38-113 [facility] Comment on above: Order Comment: Speci men Type: BLOOD SPECIMENOrdering Facility: [facility] Address: [address] [place] [address] Performed By: #### 1 5152-2, 84895-2, 2570-8, 97601-6 ####[facility] LABORATORYCLIA [id number] [place] [id number] [place] ALT [Catalytic activity/Vol] 19 U/L Normal 10-54 [facility] Comment on above: Order Comment: Speci men Type: BLOOD SPECIMENOrdering Facility: [facility] Address: [address] [place] [address] Performed By: #### 1 5152-2, 95570-7, 2570-8, 05129-4 ####[facility] LABORATORYCLIA [id number] [place] [address] [place] Anion gap [Moles/Vol] 15 mmol/L Normal 9-18 [facility] Comment on above: Order Comment: Speci men Type: BLOOD SPECIMENOrdering Facility: [facility] Address: [address] [place] [address] Performed By: #### 1 5152-2, 47196-4, 8, 47665-0 ####[facility] LABORATORYCLIA [id number] [place] [address] [place] AST [Catalytic activity/Vol] 22 U/L Normal 14-40 [facility] Comment on above: Order Comment: Speci men Type: BLOOD SPECIMENOrdering Facility: [facility] Address: [address] [place] [address] Performed By: #### 1 5152-2, 54817-3, 2570-8, 44811-4 ####[facility] LABORATORYCLIA [id number] [place] [address] [place] Bilirubin [Mass/Vol] 1.1 mg/dL Normal 0.2-1.3 [facility] Comment on above: Order Comment: Speci men Type: BLOOD SPECIMENOrdering Facility: [facility] Address: [address] [place] [address] Performed By: #### 1 5152-2, 00594-7, 2570-8, 40418-4 ####[facility] LABORATORYCLIA [id number] [place] [address] [place] Calcium [Mass/Vol] 9.6 mg/dL Normal 8.5-10.2 [facility] Comment on above: Order Comment: Speci men Type: BLOOD SPECIMENOrdering Facility: [facility] Address: [address] [place] [address] Performed By: #### 1 5152-2, 61043-9, 2570-8, 01439-1 ####[facility] LABORATORYCLIA [id number] [place] [address] [place] Chloride [Moles/Vol] 96 mmol/L Low 97-105 [facility] Comment on above: Order Comment: Speci men Type: BLOOD SPECIMENOrdering Facility: [facility] Address: [address] [place] [address] Performed By: #### 1 5152-2, 46156-5, 2570-8, 34634-1 ####[facility] LABORATORYCLIA [id number] [place] [id number] [place] CO2 [Moles/Vol] 26 mmol/L Normal 22-30 [facility] Comment on above: Order Comment: Speci men Type: BLOOD SPECIMENOrdering Facility: [facility] Address: [address] [place] [address] Performed By: #### 1 5152-2, 33861-8, 2570-8, 82169-4 ####[facility] LABORATORYCLIA [id number] [place] [address] [place] Creatinine [Mass/Vol] 1.28 mg/dL High 0.73-1.22 [facility] Comment on above: Order Comment: Speci men Type: BLOOD SPECIMENOrdering Facility: [facility] Address: [address] [place] [address] Performed By: #### 1 5152-2, 25150-3, 2570-8, 43123-9 ####[facility] LABORATORYCLIA [id number] [place] [address] [place] Creatinine and Glomerular filtration rate.predicted panel (S/P/Bld) 61 mL/min/1.73m??? Normal >=60 [facility] Comment on above: Order Comment: Arben suarez Type: BLOOD SPECIMENOrdering Facility: [facility] Address: [address] [place] [address] Result Comment: Bailey mated Glomerular Filtration Rate [...] actual GFR. Performed By: #### 1 5152-2, 99698-6, 2570-8, 99259-0 ####[facility] LABORATORYCLIA [id number] [place] [id number] [place] Glucose [Mass/Vol] 110 mg/dL High 74-99 [facility] Comment on above: Order Comment: Arben suarez Type: BLOOD SPECIMENOrdering Facility: [facility] Address: [address] [place] [address] Result Comment: The [place] Diabetes Association (ADA) provides guidance for cutoff [...] Standards of Medical Care in Diabetes 2016, [place] Diabetes Association. Diabetes Care. 2016.39(Suppl 1). Performed By: #### 1 5152-2, 31617-3, 2570-8, 12154-0 ####[facility] LABORATORYCLIA [id number] [place] [address] [place] Potassium [Moles/Vol] 3.7 mmol/L Normal 3.7-5.1 [facility] Comment on above: Order Comment: Speci men Type: BLOOD SPECIMENOrdering Facility: [facility] Address: [address] [place] [address] Performed By: #### 1 5152-2, 84387-7, 8, 98126-1 ####[facility] LABORATORYCLIA [id number] [place] [id number] [place] Protein [Mass/Vol] 7.8 g/dL Normal 6.3-8.0 [facility] Comment on above: Order Comment: Speci men Type: BLOOD SPECIMENOrdering Facility: [facility] Address: [address] [place] [address] Performed By: #### 1 5152-2, 92256-5, 8, 17007-9 ####[facility] LABORATORYCLIA [id number] [place] [id number] [place] Sodium [Moles/Vol] 137 mmol/L Normal 136-144 [facility] Comment on above: Order Comment: Speci men Type: BLOOD SPECIMENOrdering Facility: [facility] Address: [address] [place] [address] Performed By: #### 1 5152-2, 38830-2, 8, 75372-8 ####[facility] LABORATORYCLIA [id number] [place] [address] [place] Urea nitrogen [Mass/Vol] 35 mg/dL High 9-24 [facility] Comment on above: Order Comment: Speci men Type: BLOOD SPECIMENOrdering Facility: [facility] Address: [address] [place] [address] Performed By: #### 1 5152-2, 59472-5, 2571-03, 46338-8 ####[facility] LABORATORYCLIA [id number] [place] [id number] [facility] Magnesium SerPl-mCncon 08-12 Magnesium [Mass/Vol] 2.1 mg/dL Normal 1.7-2.3 [facility] Comment on above: Order Comment: Speci men Type: BLOOD SPECIMENOrdering Facility: [facility] Address: [address] [place] [address] Performed By: #### 1 5152-2, 34773-0, 2571-03, ####[facility] LABORATORYCLIA [id number] [place] [id number] [facility] [place] NURSING PROGon 08-12-2023 NURSING PROG Normal [facility] NUTRITIONon 08-12-2023 NUTRITION Normal [facility] Phosphate SerPl-mCncon 08-12 Phosphate [Mass/Vol] 3.2 mg/dL Normal 2.7-4.8 [facility] Comment on above: Order Comment: Speci men Type: BLOOD SPECIMENOrdering Facility: [facility] Address: [address] [place] [address] Performed By: #### 2 777-1 ####[facility] LABORATORYCLIA [id number] [place] [id number] [facility] Trigl SerPl-mCncon Triglyceride [Mass/Vol] 69 mg/dL Normal <150 [facility] Comment on above: Order Comment: Speci men Type: BLOOD SPECIMENOrdering Facility: [facility] Address: [address] [place] [address] Result Comment: <150 mg/dL, Normal 150-199 mg/dL, Borderline high 200-499 mg/dL, High>499 mg/dL, Very highReference:1. National Cholesterol Education Program ATP III Guideline At-A-Glance Quick Desk Reference: National Heart, Lung, and Blood [place]. National Institutes of Health. 2001: NIH Publication No. 01-3305. Performed By: #### 1 5152-2, 22385-4, 2571-03, ####[facility] LABORATORYCLIA [id number] [place] [address] [place] Triglyceride [Mass/Vol]on FASTING TIME 0 hrs Normal [facility] Comment on above: Order Comment: Speci men Type: BLOOD SPECIMENOrdering Facility: [facility] Address: [address] [place] [id number] Performed By: #### 1 5152-2, 91805-9, 2571-8, 33397-4 ####[facility] LABORATORYCLIA [id number] [place] [address] [place] CASE MANAGEMon 08-11-2023 CASE MANAGEM Normal [facility] CRP SerPl-mCncon 08-11-2023 CRP [Mass/Vol] 4.0 mg/dL High <0.9 [facility] Comment on above: Order Comment: Speci men Type: BLOOD SPECIMENOrdering Facility: [facility] Address: [place] [address] Performed By: #### 2 4328, 1987-12, 2776-08, ####[facility] LABORATORYCLIA [id number] [place] [id number] [place] Comprehensive metabolic 2000 panelon 08-11-2023 Albumin [Mass/Vol] 3.8 g/dL Low 3.9-4.9 [facility] Comment on above: Order Comment: Speci men Type: BLOOD SPECIMENOrdering Facility: [facility] Address: [address] [place] [id number] Performed By: #### 2 4328, 1987-12, 2776-08, ####[facility] LABORATORYCLIA [id number] [place] [address] [place] ALP [Catalytic activity/Vol] 107 U/L Normal 38-113 [facility] Comment on above: Order Comment: Speci men Type: BLOOD SPECIMENOrdering Facility: [facility] Address: [address] [place] [id number] Performed By: #### 2 432-8, 1987-12, 2776-08, ####[facility] LABORATORYCLIA [id number] [place] [address] [place] ALT [Catalytic activity/Vol] 17 U/L Normal 10-54 [facility] Comment on above: Order Comment: Speci men Type: BLOOD SPECIMENOrdering Facility: [facility] Address: [address] [place] [address] Performed By: #### 2 4328, 1987-12, 2776-08, ####[facility] LABORATORYCLIA [id number] [place] [address] [place] Anion gap [Moles/Vol] 16 mmol/L Normal 9-18 [facility] Comment on above: Order Comment: Speci men Type: BLOOD SPECIMENOrdering Facility: [facility] Address: [address] [place] [address] Performed By: #### 2 4328, 1987-12, 2776-08, ####[facility] LABORATORYCLIA [id number] [place] [id number] [place] AST [Catalytic activity/Vol] 15 U/L Normal 14-40 [facility] Comment on above: Order Comment: Speci men Type: BLOOD SPECIMENOrdering Facility: [facility] Address: [address] [place] [address] Performed By: #### 2 4323-03, 1987-12, 2776-08, ####[facility] LABORATORYCLIA [id number] [place] [id number] [place] Bilirubin [Mass/Vol] 1.0 mg/dL Normal 0.2-1.3 [facility] Comment on above: Order Comment: Speci men Type: BLOOD SPECIMENOrdering Facility: [facility] Address: [address] [place] [address] Performed By: #### 2 4328, 1987-12, 2776-08, ####[facility] LABORATORYCLIA [id number] [place] [address] [place] Calcium [Mass/Vol] 9.4 mg/dL Normal 8.5-10.2 [facility] Comment on above: Order Comment: Speci men Type: BLOOD SPECIMENOrdering Facility: [facility] Address: [address] [place] [address] Performed By: #### 2 4323-8, 1987-12, 2776-08, ####[facility] LABORATORYCLIA [id number] [place] [address] [place] Chloride [Moles/Vol] 100 mmol/L Normal 97-105 [facility] Comment on above: Order Comment: Speci men Type: BLOOD SPECIMENOrdering Facility: [facility] Address: [address] [place] [address] Performed By: #### 2 4323-8, 1987-12, 2776-08, ####[facility] LABORATORYCLIA [id number] [place] [id number] [place] CO2 [Moles/Vol] 25 mmol/L Normal 22-30 [facility] Comment on above: Order Comment: Speci men Type: BLOOD SPECIMENOrdering Facility: [facility] Address: [address] [place] [address] Performed By: #### 2 4323-8, 1987-12, 2776-08, ####[facility] LABORATORYCLIA [id number] [place] [id number] [place] Creatinine [Mass/Vol] 1.38 mg/dL High 0.73-1.22 [facility] Comment on above: Order Comment: Speci men Type: BLOOD SPECIMENOrdering Facility: [facility] Address: [address] [place] [address] Performed By: #### 2 4323-8, 1987-12, 2776-08, ####[facility] LABORATORYCLIA [id number] [place] [id number] [place] Creatinine and Glomerular filtration rate.predicted panel (S/P/Bld) 56 mL/min/1.73m??? Low >=60 [facility] Comment on above: Order Comment: Speci men Type: BLOOD SPECIMENOrdering Facility: [facility] Address: [address] [place] [address] Result Comment: Bailey mated Glomerular Filtration Rate [...] reflect actual GFR. Performed By: #### 2 43238, 1987-12, 2776-08, ####[facility] LABORATORYCLIA [id number] [place] [id number] [place] Glucose [Mass/Vol] 123 mg/dL High 74-99 [facility] Comment on above: Order Comment: Arben suarez Type: BLOOD SPECIMENOrdering Facility: [facility] Address: [address] [place] [address] Result Comment: The [place] Diabetes Association (ADA) provides guidance for cutoff [...] Standards of Medical Care in Diabetes 2016, [place] Diabetes Association. Diabetes Care. 2016.39(Suppl 1). Performed By: #### 2 43210-30, 1987-12, 2776-08, ####[facility] LABORATORYCLIA [id number] [place] [address] [place] Potassium [Moles/Vol] 3.3 mmol/L Low 3.7-5.1 [facility] Comment on above: Order Comment: Arben suarez Type: BLOOD SPECIMENOrdering Facility: [facility] Address: [address] [place] [address] Performed By: #### 2 4323, 1987-12, 2776-08, ####[facility] LABORATORYCLIA [id number] [place] [address] [place] Protein [Mass/Vol] 7.5 g/dL Normal 6.3-8.0 [facility] Comment on above: Order Comment: Speci men Type: BLOOD SPECIMENOrdering Facility: [facility] Address: [address] [place] [address] Performed By: #### 2 4323-8, 1987-12, 2776-08, ####[facility] LABORATORYCLIA [id number] [place] [address] [place] Sodium [Moles/Vol] 141 mmol/L Normal 136-144 [facility] Comment on above: Order Comment: Speci men Type: BLOOD SPECIMENOrdering Facility: [facility] Address: [address] [place] [address] Performed By: #### 2 4328, 1987-12, 2776-08, ####[facility] LABORATORYCLIA [id number] [place] [id number] [place] Urea nitrogen [Mass/Vol] 32 mg/dL High 9-24 [facility] Comment on above: Order Comment: Speci men Type: BLOOD SPECIMENOrdering Facility: [facility] Address: [address] [place] [address] Performed By: #### 2 4323-8, 1987-12, 2776-08, ####[facility] LABORATORYCLIA [id number] [place] [id number] [place] Magnesium SerPl-mCncon 08-11 Magnesium [Mass/Vol] 2.1 mg/dL Normal 1.7-2.3 [facility] Comment on above: Order Comment: Speci men Type: BLOOD SPECIMENOrdering Facility: [facility] Address: [address] [place] [address] Performed By: #### 2 4323-8, 1987-12, 2776-08, ####[facility] LABORATORYCLIA [id number] [place] [address] [place] NUTRITIONon 08-11-2023 NUTRITION Normal [facility] Phosphate SerPl-mCncon 08-11 Phosphate [Mass/Vol] 3.9 mg/dL Normal 2.7-4.8 [facility] Comment on above: Order Comment: Speci men Type: BLOOD SPECIMENOrdering Facility: [facility] Address: [address] [place] [address] Performed By: #### 2 4323-8, 1987-5, 2777-1, 84037-5 ####L[facility] LABORATORYCLIA [id number] [place] [id number] [place] CBC W Auto Differential pane l (Bld)on 08-10-2023 Basophils (Bld) [#/Vol] 0.04 10*3/uL Normal <0.11 [facility] Comment on above: Order Comment: Speci men Type: BLOOD SPECIMENOrdering Facility: [facility] Address: [address] [place] [address] Performed By: #### 5 7021-8 ####L[facility] LABORATORYCLIA [id number] [place] [id number] [place] Basophils/100 WBC (Bld) 0.4 % Normal [facility] Comment on above: Order Comment: Speci men Type: BLOOD SPECIMENOrdering Facility: [facility] Address: [address] [place] [address] Performed By: #### 5 7021-8 ####L[facility] LABORATORYCLIA [id number] [place] [id number] [place] Differential cell count method Nom (Bld) Auto Normal [facility] Comment on above: Order Comment: Speci men Type: BLOOD SPECIMENOrdering Facility: [facility] Address: [address] [place] [address] Performed By: #### 5 7021-8 ####L[facility] LABORATORYCLIA [id number] [place] [id number] [place] Eosinophils (Bld) [#/Vol] 0.21 10*3/uL Normal <0.46 [facility] Comment on above: Order Comment: Speci men Type: BLOOD SPECIMENOrdering Facility: [facility] Address: [address] [place] [address] Performed By: #### 5 7021-8 ####[facility] LABORATORYCLIA [id number] [place] [id number] [place] Eosinophils/100 WBC (Bld) 1.9 % Normal [facility] Comment on above: Order Comment: Speci men Type: BLOOD SPECIMENOrdering Facility: [facility] Address: [address] [place] [address] Performed By: #### 5 7021-8 ####[facility] LABORATORYCLIA [id number] [place] [address] [place] Erythrocyte distribution width (RBC) [Ratio] 12.1 % Normal 11.5-15.0 [facility] Comment on above: Order Comment: Speci men Type: BLOOD SPECIMENOrdering Facility: [facility] Address: [address] [place] [address] Performed By: #### 5 7021-8 ####[facility] LABORATORYCLIA [id number] [address] [place] Hematocrit (Bld) [Volume fraction] 41.9 % Normal 39.0-51.0 [facility] Comment on above: Order Comment: Speci men Type: BLOOD SPECIMENOrdering Facility: [facility] Address: [address] [place] [address] Performed By: #### 5 7021-8 ####[facility] LABORATORYCLIA [id number] [place] [address] [place] Hemoglobin (Bld) [Mass/Vol] 14.3 g/dL Normal 13.0-17.0 [facility] Comment on above: Order Comment: Speci men Type: BLOOD SPECIMENOrdering Facility: [facility] Address: [address] [place] [address] Performed By: #### 5 7021-8 ####[facility] LABORATORYCLIA [id number] [address] [place] Immature granulocytes (Bld) [#/Vol] 0.05 10*3/uL Normal <0.10 [facility] Comment on above: Order Comment: Speci men Type: BLOOD SPECIMENOrdering Facility: [facility] Address: [address] [place] [address] Performed By: #### 5 7021-8 ####[facility] LABORATORYCLIA [id number] [place] [address] [place] Immature granulocytes/100 WBC (Bld) 0.4 % Normal [facility] Comment on above: Order Comment: Speci men Type: BLOOD SPECIMENOrdering Facility: [facility] Address: [address] [place] [address] Performed By: #### 5 7021-8 ####[facility] LABORATORYCLIA [id number] [place] [address] [place] Lymphocytes (Bld) [#/Vol] 0.93 10*3/uL Low 1.00-4.00 [facility] Comment on above: Order Comment: Speci men Type: BLOOD SPECIMENOrdering Facility: [facility] Address: [address] [place] [address] Performed By: #### 5 7021-8 ####[facility] LABORATORYCLIA [id number] [address] [place] Lymphocytes/100 WBC (Bld) 8.4 % Normal [facility] Comment on above: Order Comment: Speci men Type: BLOOD SPECIMENOrdering Facility: [facility] Address: [address] [place] [address] Performed By: #### 5 7021-8 ####GE[facility] LABORATORYCLIA [id number] [place] [address] [place] MCH (RBC) [Entitic mass] 29.9 pg Normal 26.0-34.0 [facility] Comment on above: Order Comment: Speci men Type: BLOOD SPECIMENOrdering Facility: [facility] Address: [address] [place] [address] Performed By: #### 5 7021-8 ####[facility] LABORATORYCLIA [id number] [place] [address] [place] MCHC (RBC) [Mass/Vol] 34.1 g/dL Normal 30.5-36.0 [facility] Comment on above: Order Comment: Speci men Type: BLOOD SPECIMENOrdering Facility: [facility] Address: [address] [place] [address] Performed By: #### 5 7021-8 ####[facility] LABORATORYCLIA [id number] [place] [id number] [place] MCV (RBC) [Entitic vol] 87.7 fL Normal 80.0-100.0 [facility] Comment on above: Order Comment: Speci men Type: BLOOD SPECIMENOrdering Facility: [facility] Address: [address] [place] [address] Performed By: #### 5 7021-8 ####[facility] LABORATORYCLIA [id number] [place] [id number] [place] Monocytes (Bld) [#/Vol] 1.28 10*3/uL High <0.87 [facility] Comment on above: Order Comment: Speci men Type: BLOOD SPECIMENOrdering Facility: [facility] Address: [address] [place] [address] Performed By: #### 5 7021-8 ####[facility] LABORATORYCLIA [id number] [place] [id number] [place] Monocytes/100 WBC (Bld) 11.5 % Normal [facility] Comment on above: Order Comment: Speci men Type: BLOOD SPECIMENOrdering Facility: [facility] Address: [address] [place] [address] Performed By: #### 5 7021-8 ####[facility] LABORATORYCLIA [id number] [place] [id number] [place] Neutrophils (Bld) [#/Vol] 8.62 10*3/uL High 1.45-7.50 [facility] Comment on above: Order Comment: Speci men Type: BLOOD SPECIMENOrdering Facility: [facility] Address: [address] [place] [address] Performed By: #### 5 7021-8 ####[facility] LABORATORYCLIA [id number] [place] [id number] [place] Neutrophils/100 WBC (Bld) 77.4 % Normal [facility] Comment on above: Order Comment: Speci men Type: BLOOD SPECIMENOrdering Facility: [facility] Address: [address] [place] [address] Performed By: #### 5 7021-8 ####[facility] LABORATORYCLIA [id number] [place] [address] [place] Nucleated RBC (Bld) [#/Vol] 10*3/uL Normal <0.01 [facility] Comment on above: Order Comment: Speci men Type: BLOOD SPECIMENOrdering Facility: [facility] Address: [address] [place] [address] Performed By: #### 5 7021-8 ####[facility] LABORATORYCLIA [id number] [place] [address] [place] Nucleated RBC/100 WBC (Bld) [Ratio] 0.0 /100 WBC Normal [facility] Comment on above: Order Comment: Speci men Type: BLOOD SPECIMENOrdering Facility: [facility] Address: [address] [place] [address] Performed By: #### 5 7021-8 ####[facility] LABORATORYCLIA [id number] [place] [address] [place] Platelet mean volume (Bld) [Entitic vol] 11.5 fL Normal 9.0-12.7 [facility] Comment on above: Order Comment: Speci men Type: BLOOD SPECIMENOrdering Facility: [facility] Address: [address] [place] [address] Performed By: #### 5 7021-8 ####[facility] LABORATORYCLIA [id number] [place] [address] [place] Platelets (Bld) [#/Vol] 285 10*3/uL Normal 150-400 [facility] Comment on above: Order Comment: Speci men Type: BLOOD SPECIMENOrdering Facility: [facility] Address: [address] [place] [address] Performed By: #### 5 7021-8 ####[facility] LABORATORYCLIA [id number] [place] [address] [place] RBC (Bld) [#/Vol] 4.78 10*6/uL Normal 4.20-6.00 [facility] Comment on above: Order Comment: Speci men Type: BLOOD SPECIMENOrdering Facility: [facility] Address: [address] [facility] [place] [address] Performed By: #### 5 7021-8 ####[facility] LABORATORYCLIA [id number] [place] [id number] [place] WBC (Bld) [#/Vol] 11.13 10*3/uL High 3.70-11.00 [facility] Comment on above: Order Comment: Speci men Type: BLOOD SPECIMENOrdering Facility: [facility] Address: [place] [address] Performed By: #### 5 7021-8 ####[facility] LABORATORYCLIA [id number] [place] [id number] [place] Comprehensive metabolic 2000 panelon 08-10-2023 Albumin [Mass/Vol] 4.0 g/dL Normal 3.9-4.9 [facility] Comment on above: Order Comment: Speci men Type: BLOOD SPECIMENOrdering Facility: [facility] Address: [place] [address] Performed By: #### 2 4323-8, , 2776- ####[facility] LABORATORYCLIA [id number] [place] [id number] [place] ALP [Catalytic activity/Vol] 111 U/L Normal 38-113 [facility] Comment on above: Order Comment: Speci men Type: BLOOD SPECIMENOrdering Facility: [facility] Address: [address] [place] [address] Performed By: #### 2 4323-8, , 2776-08 ####[facility] LABORATORYCLIA [id number] [place] [id number] [place] ALT [Catalytic activity/Vol] 21 U/L Normal 10-54 [facility] Comment on above: Order Comment: Speci men Type: BLOOD SPECIMENOrdering Facility: [facility] Address: [address] [place] [address] Performed By: #### 2 4323-8, , 2776-08 ####[facility] LABORATORYCLIA [id number] [place] [address] [place] Anion gap [Moles/Vol] 15 mmol/L Normal 9-18 [facility] Comment on above: Order Comment: Speci men Type: BLOOD SPECIMENOrdering Facility: [facility] Address: [address] [place] [address] Performed By: #### 2 4323-8, , 2776-08 ####[facility] LABORATORYCLIA [id number] [place] [id number] [place] AST [Catalytic activity/Vol] 16 U/L Normal 14-40 [facility] Comment on above: Order Comment: Speci men Type: BLOOD SPECIMENOrdering Facility: [facility] Address: [address] [place] [address] Performed By: #### 2 432-8, , 2776-08 ####[facility] LABORATORYCLIA [id number] [place] [id number] [place] Bilirubin [Mass/Vol] 0.7 mg/dL Normal 0.2-1.3 [facility] Comment on above: Order Comment: Speci men Type: BLOOD SPECIMENOrdering Facility: [facility] Address: [address] [place] [address] Performed By: #### 2 4323-8, , 2776-08 ####[facility] LABORATORYCLIA [id number] [place] [id number] [place] Calcium [Mass/Vol] 9.3 mg/dL Normal 8.5-10.2 [facility] Comment on above: Order Comment: Speci men Type: BLOOD SPECIMENOrdering Facility: [facility] Address: [address] [place] [address] Performed By: #### 2 4323-8, , 2776-08 ####[facility] LABORATORYCLIA [id number] [place] [id number] [place] Chloride [Moles/Vol] 100 mmol/L Normal 97-105 [facility] Comment on above: Order Comment: Speci men Type: BLOOD SPECIMENOrdering Facility: [facility] Address: [address] [place] [address] Performed By: #### 2 4323-8, , 2776-08 ####[facility] LABORATORYCLIA [id number] [place] [address] [place] CO2 [Moles/Vol] 25 mmol/L Normal 22-30 [facility] Comment on above: Order Comment: Speci men Type: BLOOD SPECIMENOrdering Facility: [facility] Address: [address] [place] [address] Performed By: #### 2 4323-8, , 2776-08 ####[facility] LABORATORYCLIA [id number] [place] [id number] [place] Creatinine [Mass/Vol] 1.34 mg/dL High 0.73-1.22 [facility] Comment on above: Order Comment: Speci men Type: BLOOD SPECIMENOrdering Facility: [facility] Address: [address] [place] [address] Performed By: #### 2 4323-8, , 2776-08 ####L[facility] LABORATORYCLIA [id number] [place] [id number] [place] Creatinine and Glomerular filtration rate.predicted panel (S/P/Bld) 58 mL/min/1.73m??? Low >=60 [facility] Comment on above: Order Comment: Speci men Type: BLOOD SPECIMENOrdering Facility: [facility] Address: [address] [place] [address] Result Comment: Bailey mated Glomerular Filtration Rate [...] reflect actual GFR. Performed By: #### 2 4323-, , 2776-08 ####[facility] LABORATORYCLIA [id number] [place] [address] [place] Glucose [Mass/Vol] 105 mg/dL High 74-99 [facility] Comment on above: Order Comment: Speci men Type: BLOOD SPECIMENOrdering Facility: [facility] Address: [address] [place] [address] Result Comment: The [place] Diabetes Association (ADA) provides guidance for cutoff [...] Standards of Medical Care in Diabetes 2016, [place] [employer]. Diabetes Care. 2016.39(Suppl 1). Performed By: #### 2 4323-8, , 2776-08 ####[facility] LABORATORYCLIA [id number] [place] [address] [place] Potassium [Moles/Vol] 3.6 mmol/L Low 3.7-5.1 [facility] Comment on above: Order Comment: Speci men Type: BLOOD SPECIMENOrdering Facility: [facility] Address: [address] [place] [address] Performed By: #### 2 4323-8, , 2776-08 ####[facility] LABORATORYCLIA [id number] [place] [address] [place] Protein [Mass/Vol] 7.5 g/dL Normal 6.3-8.0 [facility] Comment on above: Order Comment: Speci men Type: BLOOD SPECIMENOrdering Facility: [facility] Address: [address] [place] [address] Performed By: #### 2 4323-8, , 2776-08 ####[facility] LABORATORYCLIA [id number] [place] [id number] [place] Sodium [Moles/Vol] 140 mmol/L Normal 136-144 [facility] Comment on above: Order Comment: Speci men Type: BLOOD SPECIMENOrdering Facility: [facility] Address: [address] [place] [address] Performed By: #### 2 4323-8, 20641-9, 2776-08 ####[facility] LABORATORYCLIA [id number] [place] [id number] [place] Urea nitrogen [Mass/Vol] 28 mg/dL High 9-24 [facility] Comment on above: Order Comment: Speci men Type: BLOOD SPECIMENOrdering Facility: [facility] Address: [address] [place] [address] Performed By: #### 2 4323-8, , 2776-08 ####[facility] LABORATORYCLIA [id number] [place] [id number] [place] [facility] Magnesium [Mass/Vol] 2.0 mg/dL Normal 1.7-2.3 [facility] Comment on above: Order Comment: Speci men Type: BLOOD SPECIMENOrdering Facility: [facility] Address: [address] [place] [address] Performed By: #### 2 4323-8, , 2776-08 ####[facility] LABORATORYCLIA [id number] [place] [id number] [place] NURSING PROGon 08-10-2023 NURSING PROG Normal [facility] Phosphate SerPl-mCncon 08-10 Phosphate [Mass/Vol] 3.9 mg/dL Normal 2.7-4.8 [facility] Comment on above: Order Comment: Speci men Type: BLOOD SPECIMENOrdering Facility: [facility] Address: [address] [place] [address] Performed By: #### 2 4323-8, , 2776-08 ####L[facility] LABORATORYCLIA [id number] [place] [id number] [place] CBC W Auto Differential pane l (Bld)on 08-09-2023 Basophils (Bld) [#/Vol] 0.06 10*3/uL Normal <0.11 [facility] Comment on above: Order Comment: Speci men Type: BLOOD SPECIMENOrdering Facility: [facility] Address: [address] [place] [address] Performed By: #### 5 7021-8 ####GE[facility] LABORATORYCLIA [id number] [place] [address] [place] Basophils/100 WBC (Bld) 0.6 % Normal [facility] Comment on above: Order Comment: Speci men Type: BLOOD SPECIMENOrdering Facility: [facility] Address: [address] [place] [address] Performed By: #### 5 7021-8 ####GE[facility] LABORATORYCLIA [id number] [address] [place] Differential cell count method Nom (Bld) Auto Normal [facility] Comment on above: Order Comment: Speci men Type: BLOOD SPECIMENOrdering Facility: [facility] Address: [address] [place] [address] Performed By: #### 5 7021-8 ####GE[facility] LABORATORYCLIA [id number] [address] [place] Eosinophils (Bld) [#/Vol] 0.28 10*3/uL Normal <0.46 [facility] Comment on above: Order Comment: Speci men Type: BLOOD SPECIMENOrdering Facility: [facility] Address: [address] [place] [address] Performed By: #### 5 7021-8 ####[facility] LABORATORYCLIA [id number] [address] [place] Eosinophils/100 WBC (Bld) 2.9 % Normal [facility] Comment on above: Order Comment: Speci men Type: BLOOD SPECIMENOrdering Facility: [facility] Address: [address] [place] [address] Performed By: #### 5 7021-8 ####GE[facility] LABORATORYCLIA [id number] [place] [address] [place] Erythrocyte distribution width (RBC) [Ratio] 11.9 % Normal 11.5-15.0 [facility] Comment on above: Order Comment: Speci men Type: BLOOD SPECIMENOrdering Facility: [facility] Address: [address] [place] [address] Performed By: #### 5 7021-8 ####[facility] LABORATORYCLIA [id number] [place] [address] [place] Hematocrit (Bld) [Volume fraction] 38.0 % Low 39.0-51.0 [facility] Comment on above: Order Comment: Speci men Type: BLOOD SPECIMENOrdering Facility: [facility] Address: [address] [place] [address] Performed By: #### 5 7021-8 ####[facility] LABORATORYCLIA [id number] [place] [address] [place] Hemoglobin (Bld) [Mass/Vol] 13.0 g/dL Normal 13.0-17.0 [facility] Comment on above: Order Comment: Speci men Type: BLOOD SPECIMENOrdering Facility: [facility] Address: [address] [place] [address] Performed By: #### 5 7021-8 ####[facility] LABORATORYCLIA [id number] [address] [place] Immature granulocytes (Bld) [#/Vol] 0.05 10*3/uL Normal <0.10 [facility] Comment on above: Order Comment: Speci men Type: BLOOD SPECIMENOrdering Facility: [facility] Address: [address] [place] [address] Performed By: #### 5 7021-8 ####[facility] LABORATORYCLIA [id number] [address] [place] Immature granulocytes/100 WBC (Bld) 0.5 % Normal [facility] Comment on above: Order Comment: Speci men Type: BLOOD SPECIMENOrdering Facility: [facility] Address: [address] [place] [address] Performed By: #### 5 7021-8 ####[facility] LABORATORYCLIA [id number] [place] [address] [place] Lymphocytes (Bld) [#/Vol] 0.87 10*3/uL Low 1.00-4.00 [facility] Comment on above: Order Comment: Speci men Type: BLOOD SPECIMENOrdering Facility: [facility] Address: [address] [place] [address] Performed By: #### 5 7021-8 ####[facility] LABORATORYCLIA [id number] [place] [address] [place] Lymphocytes/100 WBC (Bld) 9.1 % Normal [facility] Comment on above: Order Comment: Speci men Type: BLOOD SPECIMENOrdering Facility: [facility] Address: [address] [place] [address] Performed By: #### 5 7021-8 ####[facility] LABORATORYCLIA [id number] [place] [address] [place] MCH (RBC) [Entitic mass] 29.8 pg Normal 26.0-34.0 [facility] Comment on above: Order Comment: Speci men Type: BLOOD SPECIMENOrdering Facility: [facility] Address: [address] [place] [address] Performed By: #### 5 7021-8 ####[facility] LABORATORYCLIA [id number] [address] [place] MCHC (RBC) [Mass/Vol] 34.2 g/dL Normal 30.5-36.0 [facility] Comment on above: Order Comment: Speci men Type: BLOOD SPECIMENOrdering Facility: [facility] Address: [address] [place] [address] Performed By: #### 5 7021-8 ####[facility] LABORATORYCLIA [id number] [address] MCV (RBC) [Entitic vol] 87.2 fL Normal 80.0-100.0 [facility] Comment on above: Order Comment: Speci men Type: BLOOD SPECIMENOrdering Facility: [facility] Address: [address] [place] [address] Performed By: #### 5 7021-8 ####[facility] LABORATORYCLIA [id number] [place] [id number] [place] Monocytes (Bld) [#/Vol] 1.22 10*3/uL High <0.87 [facility] Comment on above: Order Comment: Speci men Type: BLOOD SPECIMENOrdering Facility: [facility] Address: [address] [place] [address] Performed By: #### 5 7021-8 ####[facility] LABORATORYCLIA [id number] [place] [id number] [place] Monocytes/100 WBC (Bld) 12.8 % Normal [facility] Comment on above: Order Comment: Speci men Type: BLOOD SPECIMENOrdering Facility: [facility] Address: [address] [place] [address] Performed By: #### 5 7021-8 ####[facility] LABORATORYCLIA [id number] [place] [id number] [place] Neutrophils (Bld) [#/Vol] 7.06 10*3/uL Normal 1.45-7.50 [facility] Comment on above: Order Comment: Speci men Type: BLOOD SPECIMENOrdering Facility: [facility] Address: [address] [place] [address] Performed By: #### 5 7021-8 ####[facility] LABORATORYCLIA [id number] [place] [id number] [place] Neutrophils/100 WBC (Bld) 74.1 % Normal [facility] Comment on above: Order Comment: Speci men Type: BLOOD SPECIMENOrdering Facility: [facility] Address: [address] [place] [address] Performed By: #### 5 7021-8 ####[facility] LABORATORYCLIA [id number] [place] [id number] [place] Nucleated RBC (Bld) [#/Vol] 10*3/uL Normal <0.01 [facility] Comment on above: Order Comment: Speci men Type: BLOOD SPECIMENOrdering Facility: [facility] [facility] Address: [facility] [place] [address] Performed By: #### 5 7021-8 ####[facility] LABORATORYCLIA [id number] [place] [id number] [place] Nucleated RBC/100 WBC (Bld) [Ratio] 0.0 /100 WBC Normal [facility] Comment on above: Order Comment: Speci men Type: BLOOD SPECIMENOrdering Facility: [facility] Address: [address] [place] [address] Performed By: #### 5 7021-8 ####L[facility] LABORATORYCLIA [id number] [place] [id number] [place] Platelet mean volume (Bld) [Entitic vol] 11.2 fL Normal 9.0-12.7 [facility] Comment on above: Order Comment: Speci men Type: BLOOD SPECIMENOrdering Facility: [facility] Address: [address] [place] [address] Performed By: #### 5 7021-8 ####LOR[facility] LABORATORYCLIA [id number] [place] [address] [place] Platelets (Bld) [#/Vol] 298 10*3/uL Normal 150-400 [facility] Comment on above: Order Comment: Speci men Type: BLOOD SPECIMENOrdering Facility: [facility] Address: [address] [place] [address] Performed By: #### 5 7021-8 ####L[facility] LABORATORYCLIA [id number] [place] [id number] [place] RBC (Bld) [#/Vol] 4.36 10*6/uL Normal 4.20-6.00 [facility] Comment on above: Order Comment: Speci men Type: BLOOD SPECIMENOrdering Facility: [facility] Address: [address] [place] [address] Performed By: #### 5 7021-8 ####L[facility] LABORATORYCLIA [id number] [place] [id number] [place] WBC (Bld) [#/Vol] 9.54 10*3/uL Normal 3.70-11.00 [facility] Comment on above: Order Comment: Speci men Type: BLOOD SPECIMENOrdering Facility: [facility] Address: [place] [address] Performed By: #### 5 7021-8 ####LORET[facility] LABORATORYCLIA [id number] [place] [address] [place] Comprehensive metabolic 2000 panelon 08-09-2023 Albumin [Mass/Vol] 3.9 g/dL Normal 3.9-4.9 [facility] Comment on above: Order Comment: Speci men Type: BLOOD SPECIMENOrdering Facility: [facility] Address: [address] [place] [address] Performed By: #### 2 4323-8, 2776-08, ####L[facility] LABORATORYCLIA [id number] [place] [id number] [place] ALP [Catalytic activity/Vol] 110 U/L Normal 38-113 [facility] Comment on above: Order Comment: Speci men Type: BLOOD SPECIMENOrdering Facility: [facility] Address: [address] [place] [address] Performed By: #### 2 4323-8, 2776-08, ####LOR[facility] LABORATORYCLIA [id number] [place] [id number] [place] ALT [Catalytic activity/Vol] 26 U/L Normal 10-54 [facility] Comment on above: Order Comment: Speci men Type: BLOOD SPECIMENOrdering Facility: [facility] Address: [address] [place] [address] Performed By: #### 2 4323-8, 2776-08, ####LOR[facility] LABORATORYCLIA [id number] [place] [id number] [place] Anion gap [Moles/Vol] 11 mmol/L Normal 9-18 [facility] Comment on above: Order Comment: Speci men Type: BLOOD SPECIMENOrdering Facility: [facility] Address: [address] [place] [address] Performed By: #### 2 43238, 2776-08, ####[facility] LABORATORYCLIA [id number] [place] [address] [place] AST [Catalytic activity/Vol] 21 U/L Normal 14-40 [facility] Comment on above: Order Comment: Speci men Type: BLOOD SPECIMENOrdering Facility: [facility] Address: [address] [place] [address] Performed By: #### 2 4323-8, 2776-08, ####[facility] LABORATORYCLIA [id number] [place] [address] [place] Bilirubin [Mass/Vol] 0.6 mg/dL Normal 0.2-1.3 [facility] Comment on above: Order Comment: Speci men Type: BLOOD SPECIMENOrdering Facility: [facility] Address: [address] [place] [address] Performed By: #### 2 4323-8, 2776-08, ####[facility] LABORATORYCLIA [id number] [place] [id number] [place] Calcium [Mass/Vol] 9.4 mg/dL Normal 8.5-10.2 [facility] Comment on above: Order Comment: Speci men Type: BLOOD SPECIMENOrdering Facility: [facility] Address: [address] [place] [address] Performed By: #### 2 4323-8, 2776-08, ####[facility] LABORATORYCLIA [id number] [place] [id number] [place] Chloride [Moles/Vol] 104 mmol/L Normal 97-105 [facility] Comment on above: Order Comment: Speci men Type: BLOOD SPECIMENOrdering Facility: [facility] Address: [address] [place] [address] Performed By: #### 2 4323-8, 2776-08, ####[facility] LABORATORYCLIA [id number] [place] [address] [place] CO2 [Moles/Vol] 23 mmol/L Normal 22-30 [facility] Comment on above: Order Comment: Speci men Type: BLOOD SPECIMENOrdering Facility: [facility] Address: [address] [place] [address] Performed By: #### 2 4323-8, 2777, ####[facility] LABORATORYCLIA [id number] [place] [id number] [place] Creatinine [Mass/Vol] 1.52 mg/dL High 0.73-1.22 [facility] Comment on above: Order Comment: Miabrooks suarez Type: BLOOD SPECIMENOrdering Facility: [facility] Address: [address] [place] [address] Performed By: #### 2 4323-8, 27702-22, ####[facility] LABORATORYCLIA [id number] [place] [id number] [place] Creatinine and Glomerular filtration rate.predicted panel (S/P/Bld) 50 mL/min/1.73m??? Low >=60 [facility] Comment on above: Order Comment: Miabrooks suarez Type: BLOOD SPECIMENOrdering Facility: [facility] Address: [address] [place] [address] Result Comment: Bailey mated Glomerular Filtration Rate [...] GFR. Performed By: #### 2 4323-8, 2777, ####GE[facility] LABORATORYCLIA [id number] [place] [id number] [place] Glucose [Mass/Vol] 132 mg/dL High 74-99 [facility] Comment on above: Order Comment: Arben suarez Type: BLOOD SPECIMENOrdering Facility: [facility] Address: [address] [place] [address] Result Comment: The [place] Diabetes Association (ADA) provides guidance for cutoff [...] Standards of Medical Care in Diabetes 2016, [place] Diabetes [employer]. Diabetes Care. 2016.39(Suppl 1). Performed By: #### 2 4323-8, 2776-08, ####[facility] LABORATORYCLIA [id number] [place] [id number] [place] Potassium [Moles/Vol] 3.9 mmol/L Normal 3.7-5.1 [facility] Comment on above: Order Comment: Arben suarez Type: BLOOD SPECIMENOrdering Facility: [facility] Address: [address] [place] [address] Performed By: #### 2 4323-8, 2776-08, ####[facility] LABORATORYCLIA [id number] [place] [id number] [place] Protein [Mass/Vol] 7.3 g/dL Normal 6.3-8.0 [facility] Comment on above: Order Comment: Arben suarez Type: BLOOD SPECIMENOrdering Facility: [facility] Address: [address] [place] [address] Performed By: #### 2 4323-8, 2776-08, ####[facility] LABORATORYCLIA [id number] [place] [id number] [place] Sodium [Moles/Vol] 138 mmol/L Normal 136-144 [facility] Comment on above: Order Comment: Arben suarez Type: BLOOD SPECIMENOrdering Facility: [facility] Address: [address] [place] [address] Performed By: #### 2 4323-8, 2776-08, ####[facility] LABORATORYCLIA [id number] [place] [id number] [place] Urea nitrogen [Mass/Vol] 25 mg/dL High 9-24 [facility] Comment on above: Order Comment: Speci men Type: BLOOD SPECIMENOrdering Facility: [facility] Address: [place] [address] Performed By: #### 2 4323-8, 2777-1, ####LOR[facility] LABORATORYCLIA [id number] [place] [id number] [place] Magnesium SerPl-ncon 08-09 Magnesium [Mass/Vol] 2.2 mg/dL Normal 1.7-2.3 [facility] Comment on above: Order Comment: Speci men Type: BLOOD SPECIMENOrdering Facility: [facility] Address: [place] [address] Performed By: #### 2 4323-8, 1, ####LOR[facility] LABORATORYCLIA [id number] [place] [id number] [place] NURSING PROGon 08-09-2023 NURSING PROG Normal [facility] NUTRITIONon 08-09-2023 NUTRITION Normal [facility] Phosphate SerPl-mCncon 08-09 Phosphate [Mass/Vol] 3.1 mg/dL Normal 2.7-4.8 [facility] Comment on above: Order Comment: Speci men Type: BLOOD SPECIMENOrdering Facility: [facility] Address: [place] [address] Performed By: #### 2 4323-8, 2776-08, ####L[facility] LABORATORYCLIA [id number] [place] [id number] [place] THERAPY NTon 08-09-2023 THERAPY NT Normal [facility] ALLIED HEALTHon 08-08-2023 ALLIED HEALTH Normal [facility] CASE MGT INIT ASSESon 2022 CASE MGT INIT [facility] CBC W Auto Differential pane l (Bld)on 08-08-2023 Basophils (Bld) [#/Vol] 0.06 10*3/uL Normal <0.11 [facility] Comment on above: Order Comment: Speci men Type: BLOOD SPECIMENOrdering Facility: [facility] Address: [address] [place] [address] Performed By: #### 5 7021-8 ####GE[facility] LABORATORYCLIA [id number] [place] [id number] [place] Basophils/100 WBC (Bld) 0.7 % Normal [facility] Comment on above: Order Comment: Speci men Type: BLOOD SPECIMENOrdering Facility: [facility] Address: [address] [place] [address] Performed By: #### 5 7021-8 ####GE[facility] LABORATORYCLIA [id number] [place] [address] [place] Differential cell count method Nom (Bld) Auto Normal [facility] Comment on above: Order Comment: Speci men Type: BLOOD SPECIMENOrdering Facility: [facility] Address: [address] [place] [address] Performed By: #### 5 7021-8 ####GE[facility] LABORATORYCLIA [id number] [place] [address] [place] Eosinophils (Bld) [#/Vol] 0.14 10*3/uL Normal <0.46 [facility] Comment on above: Order Comment: Speci men Type: BLOOD SPECIMENOrdering Facility: [facility] Address: [address] [place] [address] Performed By: #### 5 7021-8 ####GE[facility] LABORATORYCLIA [id number] [place] [address] [place] Eosinophils/100 WBC (Bld) 1.7 % Normal [facility] Comment on above: Order Comment: Speci men Type: BLOOD SPECIMENOrdering Facility: [facility] Address: [address] [place] [address] Performed By: #### 5 7021-8 ####[facility] LABORATORYCLIA [id number] [place] [address] [place] Erythrocyte distribution width (RBC) [Ratio] 11.9 % Normal 11.5-15.0 [facility] Comment on above: Order Comment: Speci men Type: BLOOD SPECIMENOrdering Facility: [facility] Address: [address] [place] [address] Performed By: #### 5 7021-8 ####GE[facility] LABORATORYCLIA [id number] [place] [id number] [place] Hematocrit (Bld) [Volume fraction] 39.6 % Normal 39.0-51.0 [facility] Comment on above: Order Comment: Speci men Type: BLOOD SPECIMENOrdering Facility: [facility] Address: [address] [place] [address] Performed By: #### 5 7021-8 ####[facility] LABORATORYCLIA [id number] [place] [id number] [place] Hemoglobin (Bld) [Mass/Vol] 13.7 g/dL Normal 13.0-17.0 [facility] Comment on above: Order Comment: Speci men Type: BLOOD SPECIMENOrdering Facility: [facility] Address: [address] [place] [address] Performed By: #### 5 7021-8 ####[facility] LABORATORYCLIA [id number] [place] [id number] [place] Immature granulocytes (Bld) [#/Vol] 0.06 10*3/uL Normal <0.10 [facility] Comment on above: Order Comment: Speci men Type: BLOOD SPECIMENOrdering Facility: [facility] Address: [address] [place] [address] Performed By: #### 5 7021-8 ####GE[facility] LABORATORYCLIA [id number] [place] [id number] [place] Immature granulocytes/100 WBC (Bld) 0.7 % Normal [facility] Comment on above: Order Comment: Speci men Type: BLOOD SPECIMENOrdering Facility: [facility] Address: [address] [place] [address] Performed By: #### 5 7021-8 ####GE[facility] LABORATORYCLIA [id number] [place] [address] [place] Lymphocytes (Bld) [#/Vol] 1.02 10*3/uL Normal 1.00-4.00 [facility] Comment on above: Order Comment: Speci men Type: BLOOD SPECIMENOrdering Facility: [facility] Address: [address] [place] [address] Performed By: #### 5 7021-8 ####GE[facility] LABORATORYCLIA [id number] [place] [address] [place] Lymphocytes/100 WBC (Bld) 12.1 % Normal [facility] Comment on above: Order Comment: Speci men Type: BLOOD SPECIMENOrdering Facility: [facility] Address: [address] [place] [address] Performed By: #### 5 7021-8 ####[facility] LABORATORYCLIA [id number] [place] [address] [place] MCH (RBC) [Entitic mass] 29.9 pg Normal 26.0-34.0 [facility] Comment on above: Order Comment: Speci men Type: BLOOD SPECIMENOrdering Facility: [facility] Address: [address] [place] [address] Performed By: #### 5 7021-8 ####[facility] LABORATORYCLIA [id number] [place] [address] [place] MCHC (RBC) [Mass/Vol] 34.6 g/dL Normal 30.5-36.0 [facility] Comment on above: Order Comment: Speci men Type: BLOOD SPECIMENOrdering Facility: [facility] Address: [address] [place] [address] Performed By: #### 5 7021-8 ####[facility] LABORATORYCLIA [id number] [place] [address] [place] MCV (RBC) [Entitic vol] 86.5 fL Normal 80.0-100.0 [facility] Comment on above: Order Comment: Speci men Type: BLOOD SPECIMENOrdering Facility: [facility] Address: [address] [place] [address] Performed By: #### 5 7021-8 ####[facility] LABORATORYCLIA [id number] [place] [address] [place] Monocytes (Bld) [#/Vol] 0.78 10*3/uL Normal <0.87 [facility] Comment on above: Order Comment: Speci men Type: BLOOD SPECIMENOrdering Facility: [facility] Address: [address] [place] [address] Performed By: #### 5 7021-8 ####GE[facility] LABORATORYCLIA [id number] [place] [id number] [place] Monocytes/100 WBC (Bld) 9.3 % Normal [facility] Comment on above: Order Comment: Speci men Type: BLOOD SPECIMENOrdering Facility: [facility] Address: [address] [place] [address] Performed By: #### 5 7021-8 ####[facility] LABORATORYCLIA [id number] [place] [address] [place] Neutrophils (Bld) [#/Vol] 6.37 10*3/uL Normal 1.45-7.50 [facility] Comment on above: Order Comment: Speci men Type: BLOOD SPECIMENOrdering Facility: [facility] Address: [address] [place] [address] Performed By: #### 5 7021-8 ####[facility] LABORATORYCLIA [id number] [place] [id number] [place] Neutrophils/100 WBC (Bld) 75.5 % Normal [facility] Comment on above: Order Comment: Speci men Type: BLOOD SPECIMENOrdering Facility: [facility] Address: [address] [place] [address] Performed By: #### 5 7021-8 ####[facility] LABORATORYCLIA [id number] [place] [id number] [place] Nucleated RBC (Bld) [#/Vol] 10*3/uL Normal <0.01 [facility] Comment on above: Order Comment: Speci men Type: BLOOD SPECIMENOrdering Facility: [facility] Address: [address] [place] [address] Performed By: #### 5 7021-8 ####[facility] LABORATORYCLIA [id number] [place] [id number] [place] Nucleated RBC/100 WBC (Bld) [Ratio] 0.0 /100 WBC Normal [facility] Comment on above: Order Comment: Speci men Type: BLOOD SPECIMENOrdering Facility: [facility] Address: [address] [place] [address] Performed By: #### 5 7021-8 ####[facility] LABORATORYCLIA [id number] [place] [id number] [place] Platelet mean volume (Bld) [Entitic vol] 11.3 fL Normal 9.0-12.7 [facility] Comment on above: Order Comment: Speci men Type: BLOOD SPECIMENOrdering Facility: [facility] Address: [address] [place] [address] Performed By: #### 5 7021-8 ####[facility] LABORATORYCLIA [id number] [place] [address] [place] Platelets (Bld) [#/Vol] 320 10*3/uL Normal 150-400 [facility] Comment on above: Order Comment: Speci men Type: BLOOD SPECIMENOrdering Facility: [facility] Address: [address] [place] [address] Performed By: #### 5 7021-8 ####GE[facility] LABORATORYCLIA [id number] [place] [address] [place] RBC (Bld) [#/Vol] 4.58 10*6/uL Normal 4.20-6.00 [facility] Comment on above: Order Comment: Speci men Type: BLOOD SPECIMENOrdering Facility: [facility] Address: [address] [place] [address] Performed By: #### 5 7021-8 ####[facility] LABORATORYCLIA [id number] [place] [id number] [place] WBC (Bld) [#/Vol] 8.43 10*3/uL Normal 3.70-11.00 [facility] Comment on above: Order Comment: Speci men Type: BLOOD SPECIMENOrdering Facility: [facility] Address: [address] [place] [address] Performed By: #### 5 7021-8 ####LOR[facility] LABORATORYCLIA [id number] [place] [id number] [place] CONSULTon 08-08-2023 CONSULT Normal [facility] CT PANCREAS/PELVIS W IVCONon 08-08-2023 CT PANCREAS/PELVIS W IVCON Normal [facility] Comprehensive metabolic 2000 panelon 08-08-2023 Albumin [Mass/Vol] 4.5 g/dL Normal 3.9-4.9 [facility] Comment on above: Order Comment: Speci men Type: BLOOD SPECIMENOrdering Facility: [facility] Address: [address] [place] [address] Performed By: #### 2 777-1, , ####[facility] LABORATORYCLIA [id number] [place] [id number] [place] ALP [Catalytic activity/Vol] 114 U/L High 38-113 [facility] Comment on above: Order Comment: Speci men Type: BLOOD SPECIMENOrdering Facility: [facility] Address: [address] [place] [address] Performed By: #### 2 777-1, , ####[facility] LABORATORYCLIA [id number] [place] [id number] [place] ALT [Catalytic activity/Vol] 30 U/L Normal 10-54 [facility] Comment on above: Order Comment: Speci men Type: BLOOD SPECIMENOrdering Facility: [facility] Address: [address] [place] [address] Performed By: #### 2 777-1, , ####[facility] LABORATORYCLIA [id number] [place] [id number] [place] Anion gap [Moles/Vol] 17 mmol/L Normal 9-18 [facility] Comment on above: Order Comment: Speci men Type: BLOOD SPECIMENOrdering Facility: [facility] Address: [address] [place] [address] Performed By: #### 2 777-1, , ####[facility] LABORATORYCLIA [id number] [place] [address] [place] AST [Catalytic activity/Vol] 27 U/L Normal 14-40 [facility] Comment on above: Order Comment: Speci men Type: BLOOD SPECIMENOrdering Facility: [facility] Address: [address] [place] [address] Performed By: #### 2 777-1, , ####[facility] LABORATORYCLIA [id number] [place] [id number] [place] Bilirubin [Mass/Vol] 0.5 mg/dL Normal 0.2-1.3 [facility] Comment on above: Order Comment: Speci men Type: BLOOD SPECIMENOrdering Facility: [facility] Address: [address] [place] [address] Performed By: #### 2 777-1, , ####[facility] LABORATORYCLIA [id number] [place] [id number] [place] Calcium [Mass/Vol] 9.7 mg/dL Normal 8.5-10.2 [facility] Comment on above: Order Comment: Speci men Type: BLOOD SPECIMENOrdering Facility: [facility] Address: [address] [place] [address] Performed By: #### 2 777-1, , ####[facility] LABORATORYCLIA [id number] [place] [id number] [place] Chloride [Moles/Vol] 102 mmol/L Normal 97-105 [facility] Comment on above: Order Comment: Speci men Type: BLOOD SPECIMENOrdering Facility: [facility] Address: [address] [place] [address] Performed By: #### 2 777-1, , ####[facility] LABORATORYCLIA [id number] [place] [id number] [place] CO2 [Moles/Vol] 18 mmol/L Low 22-30 [facility] Comment on above: Order Comment: Speci men Type: BLOOD SPECIMENOrdering Facility: [facility] Address: [address] [place] [address] Performed By: #### 2 777-1, 76855-2, ####L[facility] LABORATORYCLIA [id number] [place] [id number] [place] Creatinine [Mass/Vol] 1.86 mg/dL High 0.73-1.22 [facility] Comment on above: Order Comment: Arben suarez Type: BLOOD SPECIMENOrdering Facility: [facility] Address: [address] [place] [address] Performed By: #### 2 777-1, 54316-9, ####LOR[facility] LABORATORYCLIA [id number] [place] [id number] [place] Creatinine and Glomerular filtration rate.predicted panel (S/P/Bld) 39 mL/min/1.73m??? Low >=60 [facility] Comment on above: Order Comment: Arben suarez Type: BLOOD SPECIMENOrdering Facility: [facility] Address: [address] [place] [address] Result Comment: Bailey mated Glomerular Filtration Rate [...] GFR. Performed By: #### 2 777-1, , ####L[facility] LABORATORYCLIA [id number] [place] [id number] [place] Glucose [Mass/Vol] 87 mg/dL Normal 74-99 [facility] Comment on above: Order Comment: Arben suarez Type: BLOOD SPECIMENOrdering Facility: [facility] Address: [address] [place] [address] Result Comment: The [place] Diabetes [employer] (ADA) provides guidance for cutoff [...] Standards of Medical Care in Diabetes 2016, [place] [employer]. Diabetes Care. 2016.39(Suppl 1). Performed By: #### 2 777-1, , ####[facility] LABORATORYCLIA [id number] [place] [address] [place] Potassium [Moles/Vol] 4.2 mmol/L Normal 3.7-5.1 [facility] Comment on above: Order Comment: Speci men Type: BLOOD SPECIMENOrdering Facility: [facility] Address: [address] [place] [address] Performed By: #### 2 777-1, , ####[facility] LABORATORYCLIA [id number] [place] [id number] [place] Protein [Mass/Vol] 7.6 g/dL Normal 6.3-8.0 [facility] Comment on above: Order Comment: Miai daniela Type: BLOOD SPECIMENOrdering Facility: [facility] Address: [address] [place] [address] Performed By: #### 2 777-1, , ####[facility] LABORATORYCLIA [id number] [place] [id number] [place] Sodium [Moles/Vol] 137 mmol/L Normal 136-144 [facility] Comment on above: Order Comment: Speci men Type: BLOOD SPECIMENOrdering Facility: [facility] Address: [address] [place] [address] Performed By: #### 2 777-1, , ####[facility] LABORATORYCLIA [id number] [place] [address] [place] Urea nitrogen [Mass/Vol] 33 mg/dL High 9-24 [facility] Comment on above: Order Comment: Speci men Type: BLOOD SPECIMENOrdering Facility: [facility] Address: [place] [address] Performed By: #### 2 777-1, , ####[facility] LABORATORYCLIA [id number] [place] [address] [place] ECG COMPLETEon 08-08-2023 ECG COMPLETE Normal [facility] Magnesium SerPl-ncon 08-08 Magnesium [Mass/Vol] 2.2 mg/dL Normal 1.7-2.3 [facility] Comment on above: Order Comment: Speci men Type: BLOOD SPECIMENOrdering Facility: [facility] Address: [place] [address] Performed By: #### 2 777-1, , ####[facility] LABORATORYCLIA [id number] [place] [id number] [place] NUTRITIONon 08-08-2023 NUTRITION Normal [facility] NUTRITION Normal [facility]ate [facility] Phosphate [Mass/Vol] 3.4 mg/dL Normal 2.7-4.8 [facility] Comment on above: Order Comment: Speci men Type: BLOOD SPECIMENOrdering Facility: [facility] Address: [place] [address] Performed By: #### 2 777-1, , ####[facility] LABORATORYCLIA [id number] [place] [id number] [place] THERAPY NTon 08-08-2023 THERAPY NT Normal [facility] Urinalysis complete panel (U )on 08-08-2023 Bilirubin Ql (U) Negative Normal Negative [facility] Comment on above: Order Comment: Speci men Type: URINE SPECIMENOrdering Facility: [facility] Address: [address] [place] [address] Performed By: #### 2 4356-8 ####[facility] LABORATORYCLIA [id number] [place] [id number] [place] Clarity (Unsp spec) Clear Normal Clear [facility] Comment on above: Order Comment: Speci men Type: URINE SPECIMENOrdering Facility: [facility] Address: [address] [place] [address] Performed By: #### 2 4356-8 ####[facility] LABORATORYCLIA [id number] [place] [address] [place] Color (U) Light Yellow Normal Yellow [facility] Comment on above: Order Comment: Speci men Type: URINE SPECIMENOrdering Facility: [facility] Address: [address] [place] [address] Performed By: #### 2 4356-8 ####[facility] LABORATORYCLIA [id number] [place] [address] [place] Glucose Test strip (U) [Mass/Vol] Negative Normal Trace, Negative [facility] Comment on above: Order Comment: Speci men Type: URINE SPECIMENOrdering Facility: [facility] Address: [address] [place] [address] Performed By: #### 2 4356-8 ####[facility] LABORATORYCLIA [id number] [place] [address] [place] Hemoglobin Ql (U) Negative Normal Negative, Trace [facility] Comment on above: Order Comment: Speci men Type: URINE SPECIMENOrdering Facility: [facility] Address: [address] [place] [address] Performed By: #### 2 4356-8 ####[facility] LABORATORYCLIA [id number] [place] [address] [place] Hyaline casts (Urine sed) [#/Area] 4-10 /LPF Abnormal 0 /LPF [facility] Comment on above: Order Comment: Speci men Type: URINE SPECIMENOrdering Facility: [facility] Address: [address] [place] [address] Performed By: #### 2 4356-8 ####[facility] LABORATORYCLIA [id number] [place] [address] [place] Ketones Ql (U) Trace Normal Negative, Trace [facility] Comment on above: Order Comment: Speci men Type: URINE SPECIMENOrdering Facility: [facility] Address: [address] [place] [address] Performed By: #### 2 4356-8 ####[facility] LABORATORYCLIA [id number] [address] [place] [facility] Leukocyte esterase Test strip Ql (U) Negative Normal Negative, 25 Angle/uL [facility] Comment on above: Order Comment: Speci men Type: URINE SPECIMENOrdering Facility: [facility] Address: [address] [place] [address] Performed By: #### 2 4356-8 ####[facility] LABORATORYCLIA [id number] [place] [address] [place] Nitrite Ql (U) Negative Normal Negative [facility] Comment on above: Order Comment: Speci men Type: URINE SPECIMENOrdering Facility: [facility] Address: [address] [place] [address] Performed By: #### 2 4356-8 ####[facility] LABORATORYCLIA [id number] [place] [address] [place] pH (U) 6.5 [pH] Normal 5.0-8.0 [facility] Comment on above: Order Comment: Speci men Type: URINE SPECIMENOrdering Facility: [facility] Address: [address] [place] [address] Performed By: #### 2 4356-8 ####[facility] LABORATORYCLIA [id number] [place] [address] [place] Protein (U) [Mass/Vol] 1+ Abnormal Trace , Negative [facility] Comment on above: Order Comment: Speci men Type: URINE SPECIMENOrdering Facility: [facility] Address: [address] [place] [address] Performed By: #### 2 4356-8 ####[facility] LABORATORYCLIA [id number] [place] [address] [place] RBC LM.HPF (Urine sed) [#/Area] 0-3 /HPF Normal 0-3 /HPF [facility] Comment on above: Order Comment: Speci men Type: URINE SPECIMENOrdering Facility: [facility] Address: [address] [place] [address] Performed By: #### 2 4356-8 ####[facility] LABORATORYCLIA [id number] [place] [id number] [place] Specific gravity (U) [Rel density] >1.050 High 1.005-1.03 0 [facility] Comment on above: Order Comment: Speci men Type: URINE SPECIMENOrdering Facility: [facility] Address: [address] [place] [address] Performed By: #### 2 4356-8 ####[facility] LABORATORYCLIA [id number] [place] [id number] [place] Urobilinogen Ql (U) Negative Normal Negative [facility] Comment on above: Order Comment: Speci men Type: URINE SPECIMENOrdering Facility: [facility] Address: [address] [place] [address] Performed By: #### 2 4356-8 ####[facility] LABORATORYCLIA [id number] [place] [address] [place] WBC LM.HPF (Urine sed) [#/Area] 0-5 /HPF Normal 0-5 /HPF [facility] Comment on above: Order Comment: Speci men Type: URINE SPECIMENOrdering Facility: [facility] Address: [address] [place] [address] Performed By: #### 2 4356-8 ####[facility] LABORATORYCLIA [id number] [place] [id number] [place] ALLIED HEALTHon 08-07-2023 ALLIED HEALTH Normal [facility] CBC W Auto Differential pane l (Bld)on 08-07-2023 Basophils (Bld) [#/Vol] 0.06 10*3/uL Normal <0.11 [facility] Comment on above: Order Comment: Speci men Type: BLOOD SPECIMENOrdering Facility: [facility] Address: [address] [place] [address] Performed By: #### 5 7021-8 ####[facility] LABORATORYCLIA [id number] [place] [address] [place] Basophils/100 WBC (Bld) 0.6 % Normal [facility] Comment on above: Order Comment: Speci men Type: BLOOD SPECIMENOrdering Facility: [facility] Address: [address] [place] [address] Performed By: #### 5 7021-8 ####[facility] LABORATORYCLIA [id number] [place] [address] [place] Differential cell count method Nom (Bld) Auto Normal [facility] Comment on above: Order Comment: Speci men Type: BLOOD SPECIMENOrdering Facility: [facility] Address: [address] [place] [address] Performed By: #### 5 7021-8 ####[facility] LABORATORYCLIA [id number] [place] [address] [place] Eosinophils (Bld) [#/Vol] 0.08 10*3/uL Normal <0.46 [facility] Comment on above: Order Comment: Speci men Type: BLOOD SPECIMENOrdering Facility: [facility] Address: [address] [place] [address] Performed By: #### 5 7021-8 ####[facility] LABORATORYCLIA [id number] [address] [place] Eosinophils/100 WBC (Bld) 0.8 % Normal [facility] Comment on above: Order Comment: Speci men Type: BLOOD SPECIMENOrdering Facility: [facility] Address: [address] [place] [address] Performed By: #### 5 7021-8 ####[facility] LABORATORYCLIA [id number] [place] [address] [place] Erythrocyte distribution width (RBC) [Ratio] 11.9 % Normal 11.5-15.0 [facility] Comment on above: Order Comment: Speci men Type: BLOOD SPECIMENOrdering Facility: [facility] Address: [address] [place] [address] Performed By: #### 5 7021-8 ####[facility] LABORATORYCLIA [id number] [place] [address] [place] Hematocrit (Bld) [Volume fraction] 43.6 % Normal 39.0-51.0 [facility] Comment on above: Order Comment: Speci men Type: BLOOD SPECIMENOrdering Facility: [facility] Address: [address] [place] [address] Performed By: #### 5 7021-8 ####[facility] LABORATORYCLIA [id number] [place] [id number] [place] Hemoglobin (Bld) [Mass/Vol] 14.9 g/dL Normal 13.0-17.0 [facility] Comment on above: Order Comment: Speci men Type: BLOOD SPECIMENOrdering Facility: [facility] Address: [address] [place] [address] Performed By: #### 5 7021-8 ####[facility] LABORATORYCLIA [id number] [place] [address] [place] Immature granulocytes (Bld) [#/Vol] 0.10 10*3/uL High <0.10 [facility] Comment on above: Order Comment: Speci men Type: BLOOD SPECIMENOrdering Facility: [facility] Address: [address] [place] [address] Performed By: #### 5 7021-8 ####[facility] LABORATORYCLIA [id number] [place] [address] [place] Immature granulocytes/100 WBC (Bld) 1.0 % Normal [facility] Comment on above: Order Comment: Speci men Type: BLOOD SPECIMENOrdering Facility: [facility] Address: [address] [place] [address] Performed By: #### 5 7021-8 ####[facility] LABORATORYCLIA [id number] [place] [id number] [place] Lymphocytes (Bld) [#/Vol] 1.20 10*3/uL Normal 1.00-4.00 [facility] Comment on above: Order Comment: Speci men Type: BLOOD SPECIMENOrdering Facility: [facility] Address: [address] [place] [address] Performed By: #### 5 7021-8 ####[facility] LABORATORYCLIA [id number] [address] [place] Lymphocytes/100 WBC (Bld) 12.1 % Normal [facility] Comment on above: Order Comment: Speci men Type: BLOOD SPECIMENOrdering Facility: [facility] Address: [address] [place] [address] Performed By: #### 5 7021-8 ####[facility] LABORATORYCLIA [id number] [place] [address] [place] MCH (RBC) [Entitic mass] 29.4 pg Normal 26.0-34.0 [facility] Comment on above: Order Comment: Speci men Type: BLOOD SPECIMENOrdering Facility: [facility] Address: [address] [place] [address] Performed By: #### 5 7021-8 ####[facility] LABORATORYCLIA [id number] [address] [place] MCHC (RBC) [Mass/Vol] 34.2 g/dL Normal 30.5-36.0 [facility] Comment on above: Order Comment: Speci men Type: BLOOD SPECIMENOrdering Facility: [facility] Address: [address] [place] [address] Performed By: #### 5 7021-8 ####[facility] LABORATORYCLIA [id number] [address] [place] MCV (RBC) [Entitic vol] 86.0 fL Normal 80.0-100.0 [facility] Comment on above: Order Comment: Speci men Type: BLOOD SPECIMENOrdering Facility: [facility] Address: [address] [place] [address] Performed By: #### 5 7021-8 ####[facility] LABORATORYCLIA [id number] [place] [address] [place] Monocytes (Bld) [#/Vol] 0.97 10*3/uL High <0.87 [facility] Comment on above: Order Comment: Speci men Type: BLOOD SPECIMENOrdering Facility: [facility] Address: [address] [place] [address] Performed By: #### 5 7021-8 ####[facility] LABORATORYCLIA [id number] [place] [address] [place] Monocytes/100 WBC (Bld) 9.7 % Normal [facility] Comment on above: Order Comment: Speci men Type: BLOOD SPECIMENOrdering Facility: [facility] Address: [address] [place] [address] Performed By: #### 5 7021-8 ####[facility] LABORATORYCLIA [id number] [place] [id number] [place] Neutrophils (Bld) [#/Vol] 7.54 10*3/uL High 1.45-7.50 [facility] Comment on above: Order Comment: Speci men Type: BLOOD SPECIMENOrdering Facility: [facility] Address: [address] [place] [address] Performed By: #### 5 7021-8 ####[facility] LABORATORYCLIA [id number] [place] [address] [place] Neutrophils/100 WBC (Bld) 75.8 % Normal [facility] Comment on above: Order Comment: Speci men Type: BLOOD SPECIMENOrdering Facility: [facility] Address: [address] [place] [address] Performed By: #### 5 7021-8 ####[facility] LABORATORYCLIA [id number] [place] [id number] [place] Nucleated RBC (Bld) [#/Vol] 10*3/uL Normal <0.01 [facility] Comment on above: Order Comment: Speci men Type: BLOOD SPECIMENOrdering Facility: [facility] Address: [address] [place] [address] Performed By: #### 5 7021-8 ####[facility] LABORATORYCLIA [id number] [place] [id number] [place] Nucleated RBC/100 WBC (Bld) [Ratio] 0.0 /100 WBC Normal [facility] Comment on above: Order Comment: Speci men Type: BLOOD SPECIMENOrdering Facility: [facility] Address: [address] [place] [address] Performed By: #### 5 7021-8 ####[facility] LABORATORYCLIA [id number] [place] [id number] [place] Platelet mean volume (Bld) [Entitic vol] 11.6 fL Normal 9.0-12.7 [facility] Comment on above: Order Comment: Speci men Type: BLOOD SPECIMENOrdering Facility: [facility] Address: [address] [place] [address] Performed By: #### 5 7021-8 ####[facility] LABORATORYCLIA [id number] [place] [id number] [place] Platelets (Bld) [#/Vol] 374 10*3/uL Normal 150-400 [facility] Comment on above: Order Comment: Speci men Type: BLOOD SPECIMENOrdering Facility: [facility] Address: [address] [place] [address] Performed By: #### 5 7021-8 ####[facility] LABORATORYCLIA [id number] [place] [id number] [place] RBC (Bld) [#/Vol] 5.07 10*6/uL Normal 4.20-6.00 [facility] Comment on above: Order Comment: Speci men Type: BLOOD SPECIMENOrdering Facility: [facility] Address: [address] [place] [address] Performed By: #### 5 7021-8 ####[facility] LABORATORYCLIA [id number] [place] [id number] [place] WBC (Bld) [#/Vol] 9.95 10*3/uL Normal 3.70-11.00 [facility] Comment on above: Order Comment: Speci men Type: BLOOD SPECIMENOrdering Facility: [facility] Address: [address] [place] [address] Performed By: #### 5 7021-8 ####[facility] LABORATORYCLIA [id number] [place] [id number] [place] CNOVon 08-07-2023 CNOV Office Visit (GENNOM ) -------- AISHA JULIEN ([id number]) 1955 M Date Time Provider Department 08/07/23 [...] and gum (more content not included)... Normal [facility] CRP SerPl-mCncon 08-07-2023 CRP [Mass/Vol] mg/L Normal <0.9 [facility] Comment on above: Order Comment: Speci men Type: BLOOD SPECIMENOrdering Facility: [facility] Address: [address] [place] [address] Performed By: #### 2 276-4, 1987-12 ####[facility] LABORATORYCLIA [id number] [place] [id number] [place] Comprehensive metabolic 2000 panelon 08-07-2023 Albumin [Mass/Vol] 4.6 g/dL Normal 3.9-4.9 [facility] Comment on above: Order Comment: Speci men Type: BLOOD SPECIMENOrdering Facility: [facility] Address: [address] [place] [address] Performed By: #### 3 040-3, , ####[facility] LABORATORYCLIA [id number] [place] [id number] [place] ALP [Catalytic activity/Vol] 127 U/L High 38-113 [facility] Comment on above: Order Comment: Speci men Type: BLOOD SPECIMENOrdering Facility: [facility] Address: [address] [place] [address] Performed By: #### 3 040-3, , ####[facility] LABORATORYCLIA [id number] [place] [address] [place] ALT [Catalytic activity/Vol] 35 U/L Normal 10-54 [facility] Comment on above: Order Comment: Speci men Type: BLOOD SPECIMENOrdering Facility: [facility] Address: [address] [place] [address] Performed By: #### 3 040-3, , ####[facility] LABORATORYCLIA [id number] [place] [id number] [place] Anion gap [Moles/Vol] 18 mmol/L Normal 9-18 [facility] Comment on above: Order Comment: Speci men Type: BLOOD SPECIMENOrdering Facility: [facility] Address: [address] [place] [address] Performed By: #### 3 040-3, , ####[facility] LABORATORYCLIA [id number] [place] [id number] [place] AST [Catalytic activity/Vol] 30 U/L Normal 14-40 [facility] Comment on above: Order Comment: Speci men Type: BLOOD SPECIMENOrdering Facility: [facility] Address: [address] [place] [address] Performed By: #### 3 040-3, , ####[facility] LABORATORYCLIA [id number] [place] [id number] [place] Bilirubin [Mass/Vol] 0.5 mg/dL Normal 0.2-1.3 [facility] Comment on above: Order Comment: Speci men Type: BLOOD SPECIMENOrdering Facility: [facility] Address: [address] [place] [address] Performed By: #### 3 040-3, , ####[facility] LABORATORYCLIA [id number] [place] [id number] [place] Calcium [Mass/Vol] 9.9 mg/dL Normal 8.5-10.2 [facility] Comment on above: Order Comment: Speci men Type: BLOOD SPECIMENOrdering Facility: [facility] Address: [address] [place] [address] Performed By: #### 3 040-3, , ####[facility] LABORATORYCLIA [id number] [place] [id number] [place] Chloride [Moles/Vol] 93 mmol/L Low 97-105 [facility] Comment on above: Order Comment: Speci men Type: BLOOD SPECIMENOrdering Facility: [facility] Address: [address] [place] [address] Performed By: #### 3 040-3, , ####[facility] LABORATORYCLIA [id number] [place] [id number] [place] CO2 [Moles/Vol] 19 mmol/L Low 22-30 [facility] Comment on above: Order Comment: Speci men Type: BLOOD SPECIMENOrdering Facility: [facility] Address: [address] [place] [address] Performed By: #### 3 040-3, , ####[facility] LABORATORYCLIA [id number] [place] [id number] [place] Creatinine [Mass/Vol] 2.20 mg/dL High 0.73-1.22 [facility] Comment on above: Order Comment: Speci men Type: BLOOD SPECIMENOrdering Facility: [facility] Address: [address] [place] [address] Performed By: #### 3 040-3, , ####[facility] LABORATORYCLIA [id number] [place] [id number] [place] Creatinine and Glomerular filtration rate.predicted panel (S/P/Bld) 32 mL/min/1.73m??? Low >=60 [facility] Comment on above: Order Comment: Speci men Type: BLOOD SPECIMENOrdering Facility: [facility] Address: [address] [place] [address] Result Comment: Bailey mated Glomerular Filtration Rate [...] GFR. Performed By: #### 3 040-3, , ####[facility] LABORATORYCLIA [id number] [place] [id number] [place] Glucose [Mass/Vol] 108 mg/dL High 74-99 [facility] Comment on above: Order Comment: Speci men Type: BLOOD SPECIMENOrdering Facility: [facility] Address: [address] [place] [address] Result Comment: The [place] Diabetes Association (ADA) provides guidance for cutoff [...] Standards of Medical Care in Diabetes 2016, [place] [employer]. Diabetes Care. 2016.39(Suppl 1). Performed By: #### 3 040-3, , ####[facility] LABORATORYCLIA [id number] [place] [id number] [place] Potassium [Moles/Vol] 3.7 mmol/L Normal 3.7-5.1 [facility] Comment on above: Order Comment: Arben daniela Type: BLOOD SPECIMENOrdering Facility: [facility] Address: [address] [place] [address] Performed By: #### 3 040-3, , ####[facility] LABORATORYCLIA [id number] [place] [id number] [place] Protein [Mass/Vol] 8.4 g/dL High 6.3-8.0 [facility] Comment on above: Order Comment: Speci daniela Type: BLOOD SPECIMENOrdering Facility: [facility] Address: [address] [place] [address] Performed By: #### 3 040-3, , ####[facility] LABORATORYCLIA [id number] [place] [address] [place] Sodium [Moles/Vol] 130 mmol/L Low 136-144 [facility] Comment on above: Order Comment: Speci men Type: BLOOD SPECIMENOrdering Facility: [facility] Address: [place] [address] Performed By: #### 3 040-3, , ####[facility] LABORATORYCLIA [id number] [place] [id number] [facility] Urea nitrogen [Mass/Vol] 37 mg/dL High 9-24 [facility] Comment on above: Order Comment: Speci men Type: BLOOD SPECIMENOrdering Facility: [facility] Address: [place] [address] Performed By: #### 3 040-3, , ####[facility] LABORATORYCLIA [id number] [address] [facility] ED PROV NOTEon 08-07-2023 ED PROV NOTE Normal [facility] ED Triage Noteon 08-07-2023 ED Triage Note Normal [facility] Ferritin SerPl-mCncon 2022 Ferritin [Mass/Vol] 723.9 ng/mL High 30.3-565.7 [facility] Comment on above: Order Comment: Speci men Type: BLOOD SPECIMENOrdering Facility: [facility] Address: [place] [address] Performed By: #### 2 276-4, 1987-12 ####[facility] LABORATORYCLIA [id number] [place] [id number] [facility] HISTORY PHYSICALon HISTORY PHYSICAL Normal [facility] HISTORY PHYSICAL HNO ID: [id number] Author: Cleveland Alberts MD Service: ? Author [...] normal and (more content not included)... Normal [facility] Lipase SerPl-cCncon 08-07-20 23 Lipase [Catalytic activity/Vol] 154 U/L High 16-61 [facility] Comment on above: Order Comment: Speci men Type: BLOOD SPECIMENOrdering Facility: [facility] Address: [address] [place] [id number] Performed By: #### 3 040-3, 66232-9, 60237-4 ####[facility] LABORATORYCLIA [id number] [place] [id number] [place] Magnesium Paull-Steffanie 08-07 Magnesium [Mass/Vol] 1.6 mg/dL Low 1.7-2.3 [facility] Comment on above: Order Comment: Specbrooks suarez Type: BLOOD SPECIMENOrdering Facility: [facility] Address: [address] [place] [address] Performed By: #### 3 040-3, 18827-8, 66562-3 ####GEOVAN[facility] LABORATORYCLIA [id number] [place] [id number] [place] PT panel Coag (PPP)on 2022 INR Coag (PPP) [Relative time] 1.0 {INR} Normal 0.9-1.3 [facility] Comment on above: Order Comment: Arben suarez Type: BLOOD SPECIMENOrdering Facility: [facility] Address: [address] [place] [address] Result Comment: Karissa min K Antagonist (VKA) Therapeutic Range: INR 2 to 3 (Target INR of 2.5)Note: For patients treated with VKA drugs, such as warfarin, the [employer] 2012 Guideline recommends [...] 70: 252-289 Performed By: #### 3 4528-0, 85122-0 ####GEOVANNA LABORATORYCLIA [id number] [place] [id number] [place] PT Coag (PPP) [Time] 11.6 s Normal 9.7-13.0 [facility] Comment on above: Order Comment: Speci men Type: BLOOD SPECIMENOrdering Facility: [facility] Address: [address] [place] [address] Performed By: #### 3 4528-0, 76531-1 ####GEOVANNA LABORATORYCLIA [id number] [place] [address] [place] Prealb SerPl-mCncon 08-07-20 Prealbumin [Mass/Vol] 18 mg/dL Normal 17-36 [facility] Comment on above: Order Comment: Speci men Type: BLOOD SPECIMENOrdering Facility: [facility] Address: [address] [place] [address] Performed By: #### 3 034-6, 24751-4 ####[facility] LABCLIA [id number] [address] [place] TYPE + SCREENon 08-07-2023 ABO A [facility] Comment on above: Order Comment: Speci men Type: BLOOD SPECIMENOrdering Facility: [facility] Address: [address] [place] [address] Performed By: #### T SCR ####[facility] BLOOD BANKCLIA [id number] [place] [address] [place] HISTORICAL AB SCR STATUS Negative [facility] Comment on above: Order Comment: Speci men Type: BLOOD SPECIMENOrdering Facility: [facility] Address: [address] [place] [address] Performed By: #### T SCR ####[facility] BLOOD BANKCLIA [id number] [place] [address] [place] Rh Nom (Bld) Positive [facility] Comment on above: Order Comment: Speci men Type: BLOOD SPECIMENOrdering Facility: [facility] Address: [address] [place] [address] Performed By: #### T SCR ####[facility] BLOOD BANKCLIA [id number] [place] [address] [place] TYPE AND SCREEN EXPIRATION 08/10/2023 23:59 Normal [facility] Comment on above: Order Comment: Speci men Type: BLOOD SPECIMENOrdering Facility: [facility] Address: [place] [address] Performed By: #### T SCR ####[facility] BLOOD BANKCLIA [id number] [place] [address] [place] Transferrin SerPl-mCncon Transferrin [Mass/Vol] 250 mg/dL Normal 200-360 [facility] Comment on above: Order Comment: Speci men Type: BLOOD SPECIMENOrdering Facility: [facility] Address: [place] [address] Performed By: #### 3 034-6, 81470-3 ####[facility] LABCLIA [id number] [place] [address] [place] XR ABDOMEN 1V SUPINEon 08-07 XR ABDOMEN 1V SUPINE Normal [facility] aPTT PPPon 08-07-2023 aPTT Coag (PPP) [Time] 29.9 s Normal 23.0-32.4 [facility] Comment on above: Order Comment: Speci men Type: BLOOD SPECIMENOrdering Facility: [facility] Address: [place] [address] Performed By: #### 3 4528-0, 34568-5 ####GEOVANNA LABORATORYCLIA [id number] [address] [place] CNPNon [facility]-06-[facility]23 [id number]) -------- AISHA JULIEN ([id number]) 1955 M Date Time Provider Department 08/06/23 [facility] [id number] During your visit today, we recorded the following information about you: Pantera Rojas 08/06/2023 9:08 AM Signed Received records from [facility]. Scanned into [employer]. Please review, thank you! Allergies As of Date: 08/06/2023 (No Known Allergies) Date Reviewed: Never Reviewed Reason for Visit: Received Outside Medical Records [[id number]] Prescriptions as of 10/07/2023 - potassium (POTASSIMIN ORAL) Take by mouth. [...] TO 7 DAYS Problem List As Of Date: 08/06/2023 (None) Encounter Status:Closed by PANTERA ROJAS on 10/07/23 [facility] Judy 08-05-2023 [facility] Telephone ([id number]) -------- AISHA JULIEN ([id number]) 1955 M Date Time Provider Department 08/05/23 [facility] [id number] During your visit today, we recorded the [...] appointment. *Requested images to be pushed from [employer] 08/05. Also faxed release of information to patients PCP - Dr. Cannon in [facility]. Allergies As of Date: 08/05/2023 (No [...] Encounter Status:Closed by JESSIE ZAMORA on 08/05/23 [facility] Telephone (GASTNO) -------- AISHA JULIEN ([id number]) 1955 M Date Time Provider Department 08/05/23 [...] Pelvis:[Prostatomegaly. Urinary bladder demonstrates no focal abnormality.] Peritoneum/Retroperitone um:No free air or free fluid. Left periaortic [...] control regim (more content not included)... Normal [facility] Judy 07-29-2023 [facility] Telephone ([id number]) -------- AISHA JULIEN ([id number]) 1955 M Date Time Provider Department 07/29/23 [facility] [id number] During your visit today, we recorded the following information about you: Vicki Rosario 07/29/2023 3:53 PM Addendum New patient referral from Dr. Linder's office ([phone]) to Dr. Alberts for Duodenal Mass. Contacted the office to resend records. Please advise on scheduling Allergies As of Date: 07/29/2023 (Not on File) Date Reviewed: Never Reviewed Reason for Visit: Appointment [186] Problem List As Of Date: 07/29/2023 (None) Encounter Status:Closed by VICKI ROSARIO on 07/29/23 Normal [facility] Basic Metabolic Panelon 12-0 Anion gap [Moles/Vol] 11.9 mmol/L Normal 6.0-15.0 [facility] Comment on above: Performed By: #### C REAT, PP, LYTES, LIPID, CBC, BUN #### [address] Calcium [Mass/Vol] 8.5 mg/dL Low 8.6-10.3 [facility] Comment on above: Performed By: #### C REAT, PP, LYTES, LIPID, CBC, BUN #### [address] Chloride [Moles/Vol] 105 mmol/L Normal 98-107 [facility] Comment on above: Performed By: #### C REAT, PP, LYTES, LIPID, CBC, BUN #### [address] CO2 [Moles/Vol] 26.0 mmol/L Normal 21.0-31.0 [facility] Comment on above: Performed By: #### C REAT, PP, LYTES, LIPID, CBC, BUN #### [address] Creatinine [Mass/Vol] 1.71 mg/dL Significan t change up 0.70-1.30 [facility] Comment on above: Performed By: #### C REAT, PP, LYTES, LIPID, CBC, BUN #### [address] Creatinine Clr Calc Pharmacy 41.35 [facility] Comment on above: Result Comment: PERF ORMED BY: [place] [address] PATHOLOGIST KNIFE CUTTER RAHEL TREVINO M.D. Performed By: #### C REAT, PP, LYTES, LIPID, CBC, BUN #### [address] GFR/1.73 sq M.predicted MDRD (S/P/Bld) [Vol rate/Area] 43.064 mL/min/{1.73_m2} [facility] Comment on above: Performed By: #### C REAT, PP, LYTES, LIPID, CBC, BUN #### [address] Glucose [Mass/Vol] 115 mg/dL High 70-100 [facility] Comment on above: Result Comment: [facility] Glucose Reference Range is dependent on time and content of last meal. Glucose of more than 200 mg/dL in a nonstressed, ambulatory subject supports the diagnosis of Diabetes Mellitus. ADA recommended reference range Performed By: #### C REAT, PP, LYTES, LIPID, CBC, BUN #### [address] Potassium [Moles/Vol] 3.9 mmol/L Normal 3.5-5.1 [facility] Comment on above: Performed By: #### C REAT, PP, LYTES, LIPID, CBC, BUN #### [address] Sodium [Moles/Vol] 139 mmol/L Normal 136-145 [facility] Comment on above: Performed By: #### C REAT, PP, LYTES, LIPID, CBC, BUN #### [place] [address] [place] Urea nitrogen [Mass/Vol] 29 mg/dL High 7-25 [facility] Comment on above: Performed By: #### C REAT, PP, LYTES, LIPID, CBC, BUN #### [facility] [address] [place] [address] [place] Basophils Auto (Bld) [#/Vol] Ordered By: Gela Eller on 07-26-2023 Basophils (Bld) [#/Vol] 0.0 10*3/uL 0.0-0.2 [facility] Basophils/100 WBC Auto (Bld) Ordered By: Gela Eller on 07-26-2023 Basophils/100 WBC (Bld) 0.9 % . [facility] Calcium [Mass/volume] in Ser um or PlasmaOrdered By: Gela Eller on 07-26-2023 Calcium [Mass/Vol] 8.5 mg/dL 8.6-10.3 [facility] Carbon dioxide, total [Moles /volume] in Serum or PlasmaOrdered By: Gela Eller on 07-26-2023 CO2 [Moles/Vol] 26.0 mmol/L 21.0-31.0 [facility] Chloride [Moles/volume] in S sadi or PlasmaOrdered By: Gela Eller on 07-26-2023 Chloride [Moles/Vol] 105 mmol/L 98-107 [facility] Complete Blood Count Auto Di ffon 07-26-2023 Basophils (Bld) [#/Vol] 0.0 10*3/uL Normal 0.0-0.2 [facility] Comment on above: Result Comment: PERF ORMED BY: [facility] [address] [place] [address] PATHOLOGIST KNIFE CUTTER RAHEL TREVINO M.D. Performed By: #### C REAT, PP, LYTES, LIPID, CBC, BUN #### [facility] [address] [place] [address] [place] Basophils/100 WBC (Bld) 0.9 % Normal . [facility] Comment on above: Performed By: #### C REAT, PP, LYTES, LIPID, CBC, BUN #### [facility] [address] [place] [address] [place] Eosinophils (Bld) [#/Vol] 0.4 10*3/uL Normal 0.0-0.45 [facility] Comment on above: Performed By: #### C REAT, PP, LYTES, LIPID, CBC, BUN #### [address] Eosinophils/100 WBC (Bld) 7.7 % Normal . [facility] Comment on above: Performed By: #### C REAT, PP, LYTES, LIPID, CBC, BUN #### [address] Erythrocyte distribution width (RBC) [Ratio] 12.1 % Normal 12.0-14.8 [facility] Comment on above: Performed By: #### C REAT, PP, LYTES, LIPID, CBC, BUN #### [address] Hematocrit (Bld) [Volume fraction] 31.2 % Low 38.8-50.0 [facility] Comment on above: Performed By: #### C REAT, PP, LYTES, LIPID, CBC, BUN #### [address] Hemoglobin (Bld) [Mass/Vol] 10.6 g/dL Low 13.0-17.0 [facility] Comment on above: Performed By: #### C REAT, PP, LYTES, LIPID, CBC, BUN #### [address] Lymphocytes (Bld) [#/Vol] 0.8 10*3/uL Low 1.00-4.8 [facility] Comment on above: Performed By: #### C REAT, PP, LYTES, LIPID, CBC, BUN #### [address] Lymphocytes/100 WBC (Bld) 15.8 % Normal . [facility] Comment on above: Performed By: #### C REAT, PP, LYTES, LIPID, CBC, BUN #### [address] MCH (RBC) [Entitic mass] 30.1 pg Normal 27.5-35.2 [facility] Comment on above: Performed By: #### C REAT, PP, LYTES, LIPID, CBC, BUN #### [address] MCV (RBC) [Entitic vol] 88.6 fL Normal 83.5-101 [facility] Comment on above: Performed By: #### C REAT, PP, LYTES, LIPID, CBC, BUN #### [address] Mean Corpuscular HGB Conc 34.0 g/dL Normal 32.5-35.6 [facility] Comment on above: Performed By: #### C REAT, PP, LYTES, LIPID, CBC, BUN #### [address] Monocytes (Bld) [#/Vol] 1.1 10*3/uL High 0.0-0.8 [facility] Comment on above: Performed By: #### C REAT, PP, LYTES, LIPID, CBC, BUN #### [address] Monocytes/100 WBC (Bld) 22.7 % Normal . [facility] Comment on above: Performed By: #### C REAT, PP, LYTES, LIPID, CBC, BUN #### [address] Neutrophils (Bld) [#/Vol] 2.6 10*3/uL Normal 1.8-7.7 [facility] Comment on above: Performed By: #### C REAT, PP, LYTES, LIPID, CBC, BUN #### [address] Neutrophils/100 WBC (Bld) 52.9 % Normal . [facility] Comment on above: Performed By: #### C REAT, PP, LYTES, LIPID, CBC, BUN #### [address] NRBC% 0.2 /100{WBC} Normal 0-0.5 [facility] Comment on above: Performed By: #### C REAT, PP, LYTES, LIPID, CBC, BUN #### [address] Platelet mean volume (Bld) [Entitic vol] 10.2 fL High 6.6-10.1 [facility] Comment on above: Performed By: #### C REAT, PP, LYTES, LIPID, CBC, BUN #### [facility] [address] Platelets (Bld) [#/Vol] 190 10*3/uL Normal 150-450 [facility] Comment on above: Performed By: #### C REAT, PP, LYTES, LIPID, CBC, BUN #### [address] RBC (Bld) [#/Vol] 3.52 10*6/uL Low 3.90-5.60 [facility] Comment on above: Performed By: #### C REAT, PP, LYTES, LIPID, CBC, BUN #### [address] WBC (Bld) [#/Vol] 5.0 10*3/uL Normal 4.1-10.5 [facility] Comment on above: Performed By: #### C REAT, PP, LYTES, LIPID, CBC, BUN #### [address] Creatinine [Mass/volume] in Serum or PlasmaOrdered By: Gela Eller on 07-26-2023 Creatinine [Mass/Vol] 1.71 mg/dL 0.70-1.30 [facility] Comment on above: Delta: 2.86 on 07/2546 Eosinophils Auto (Bld) [#/Vo l]Ordered By: Gela Eller on 07-26-2023 Eosinophils (Bld) [#/Vol] 0.4 10*3/uL 0.0-0.45 [facility] Eosinophils/100 WBC Auto (Bl d)Ordered By: Gela Eller on 07-26-2023 Eosinophils/100 WBC (Bld) 7.7 % . [facility] Erythrocyte distribution wid th Auto (RBC) [Ratio]Ordered By: Gela Eller on 07-26-2023 Erythrocyte distribution width (RBC) [Ratio] 12.1 % 12.0-14.8 [facility] Glucose [Mass/volume] in Ser um or PlasmaOrdered By: Gela Eller on 07-26-2023 Glucose [Mass/Vol] 115 mg/dL 70-100 [facility] Comment on above: ADA recommended refe rence rangeRandom Glucose Reference Range is dependent on time and content of last meal. Glucose of more than 200 mg/dL in a nonstressed, ambulatory subject supports the diagnosis of Diabetes Mellitus. Hematocrit Auto (Bld) [Volum e fraction]Ordered By: Gela Eller on 07-26-2023 Hematocrit (Bld) [Volume fraction] 31.2 % 38.8-50.0 [facility] Hemoglobin [Mass/volume] in BloodOrdered By: Gela Eller on 07-26-2023 Hemoglobin (Bld) [Mass/Vol] 10.6 g/dL 13.0-17.0 [facility] Leukocytes [#/volume] correc johnnie for nucleated erythrocytes in Blood by Automated counOrdered By: Gela Eller on 07-26-2023 WBC corrected for nucl RBC Auto (Bld) [#/Vol] 5.0 10*3/uL 4.1-10.5 [facility] Lymphocytes Auto (Bld) [#/Vo l]Ordered By: Gela Eller on 07-26-2023 Lymphocytes (Bld) [#/Vol] 0.8 10*3/uL 1.00-4.8 [facility] Lymphocytes/100 WBC Auto (Bl d)Ordered By: Gela Eller on 07-26-2023 Lymphocytes/100 WBC (Bld) 15.8 % . [facility] MCH Auto (RBC) [Entitic mass ]Ordered By: Gela Eller on 07-26-2023 MCH (RBC) [Entitic mass] 30.1 pg 27.5-35.2 [facility] MCHC Auto (RBC) [Mass/Vol]Or dered By: Gela Eller on 07-26-2023 MCHC (RBC) [Mass/Vol] 34.0 g/dL 32.5-35.6 [facility] MCV Auto (RBC) [Entitic vol] Ordered By: Gela Eller on 07-26-2023 MCV (RBC) [Entitic vol] 88.6 fL 83.5-101 [facility] Monocytes Auto (Bld) [#/Vol] Ordered By: Gela Eller on 07-26-2023 Monocytes (Bld) [#/Vol] 1.1 10*3/uL 0.0-0.8 [facility] Monocytes/100 WBC Auto (Bld) Ordered By: Gela Eller on 07-26-2023 Monocytes/100 WBC (Bld) 22.7 % . [facility] Neutrophils Auto (Bld) [#/Vo l]Ordered By: Gela Eller on 07-26-2023 Neutrophils (Bld) [#/Vol] 2.6 10*3/uL 1.8-7.7 [facility] Neutrophils/100 WBC Auto (Bl d)Ordered By: Gela Eller on 07-26-2023 Neutrophils/100 WBC (Bld) 52.9 % . [facility] No Panel InformationOrdered By: Gela Eller on 07-26-2023 Estimated GFR (CKD-EPI) 43.064 mL/Min [facility] Creatinine Clearance (Chem 41.35 [facility] Nucleated erythrocytes [Pres ence] in Blood by Automated countOrdered By: Gela Eller on 07-26-2023 Nucleated RBC Auto Ql (Bld) 0.2 /100{WBC} 0-0.5 [facility] Platelet mean volume Auto (B ld) [Entitic vol]Ordered By: Gela Ellre on 07-26-2023 Platelet mean volume (Bld) [Entitic vol] 10.2 fL 6.6-10.1 [facility] Platelets Auto (Bld) [#/Vol] Ordered By: Gela Eller on 07-26-2023 Platelets (Bld) [#/Vol] 190 10*3/uL 150-450 [facility] Potassium [Moles/volume] in Serum or PlasmaOrdered By: Gela Eller on 07-26-2023 Potassium [Moles/Vol] 3.9 mmol/L 3.5-5.1 [facility] RBC Auto (Bld) [#/Vol]Ordere d By: Gela Eller on 07-26-2023 RBC (Bld) [#/Vol] 3.52 10*6/uL 3.90-5.60 [facility] Serum or plasma anion gap de terminationOrdered By: Gela Eller on 07-26-2023 Anion gap [Moles/Vol] 11.9 mmol/L 6.0-15.0 [facility] Sodium [Moles/volume] in Ser um or PlasmaOrdered By: Gela Eller on 07-26-2023 Sodium [Moles/Vol] 139 mmol/L 136-145 [facility] Urea nitrogen [Mass/volume] in Serum or PlasmaOrdered By: Gela Eller on 07-26-2023 Urea nitrogen [Mass/Vol] 29 mg/dL 03-18 [facility] WBC Auto (Bld) [#/Vol]Ordere d By: Gela Eller on 07-26-2023 WBC (Bld) [#/Vol] 5.0 10*3/uL 4.1-10.5 [facility] Alanine aminotransferase [En zymatic activity/volume] in Serum or PlasmaOrdered By: Gela Eller on 07-25-2023 ALT [Catalytic activity/Vol] 9 U/L [facility] Albumin [Mass/volume] in Ser um or Plasma by Bromocresol green (BCG) dye binding methoOrdered By: Gela Eller on 07-25-2023 Albumin BCG dye [Mass/Vol] 3.4 g/dL 3.5-5.7 [facility] Alkaline phosphatase [Enzyma tic activity/volume] in Serum or PlasmaOrdered By: Gela Eller on 07-25-2023 ALP [Catalytic activity/Vol] 60 U/L 34-104 [facility] Aspartate aminotransferase [ Enzymatic activity/volume] in Serum or PlasmaOrdered By: Gela Eller on 07-25-2023 AST [Catalytic activity/Vol] 16 U/L 13-39 [facility] Basic Metabolic Panelon 12-0 Anion gap [Moles/Vol] 11.8 mmol/L Normal 6.0-15.0 [facility] Comment on above: Order Comment: Name Collection Type:: Clean-Voided Midstream Performed By: #### U A #### [facility] [address] [place] [address] Calcium [Mass/Vol] 8.3 mg/dL Low 8.6-10.3 [facility] Comment on above: Order Comment: Name Collection Type:: Clean-Voided Midstream Performed By: #### U A #### [facility] [address] [place] [address] Chloride [Moles/Vol] 97 mmol/L Low 98-107 [facility] Comment on above: Order Comment: Name Collection Type:: Clean-Voided Midstream Performed By: #### U A #### [facility] [address] [place] [address] [place] CO2 [Moles/Vol] 31.8 mmol/L High 21.0-31.0 [facility] Comment on above: Order Comment: Name Collection Type:: Clean-Voided Midstream Performed By: #### U A #### [facility] [address] [place] [address] [place] Creatinine [Mass/Vol] 3.42 mg/dL Significan t change up 0.70-1.30 [facility] Comment on above: Order Comment: Name Collection Type:: Clean-Voided Midstream Performed By: #### U A #### [facility] [address] [place] [address] [place] Creatinine Clr Calc Pharmacy 20.67 Normal [facility] Comment on above: Order Comment: Name Collection Type:: Clean-Voided Midstream Result Comment: PERF ORMED BY: [place] [address] PATHOLOGIST KNIFE CUTTER RAHEL TREVINO M.D. Performed By: #### U A #### [place] [address] [place] GFR/1.73 sq M.predicted MDRD (S/P/Bld) [Vol rate/Area] 18.745 mL/min/{1.73_m2} Normal [facility] Comment on above: Order Comment: Name Collection Type:: Clean-Voided Midstream Performed By: #### U A #### [address] Glucose [Mass/Vol] 86 mg/dL Normal 70-100 [facility] Comment on above: Order Comment: Name Collection Type:: Clean-Voided Midstream Result Comment: [place] Glucose Reference Range is dependent on time and content of last meal. Glucose of more than 200 mg/dL in a nonstressed, ambulatory subject supports the diagnosis of Diabetes Mellitus. ADA recommended reference range Performed By: #### U A #### [place] [address] [place] Potassium [Moles/Vol] 3.6 mmol/L Normal 3.5-5.1 [facility] Comment on above: Order Comment: Name Collection Type:: Clean-Voided Midstream Performed By: #### U A #### [place] [address] [place] Sodium [Moles/Vol] 137 mmol/L Normal 136-145 [facility] Comment on above: Order Comment: Name Collection Type:: Clean-Voided Midstream Performed By: #### U A #### [place] [address] [place] Urea nitrogen [Mass/Vol] 50 mg/dL High 7-25 [facility] Comment on above: Order Comment: Name Collection Type:: Clean-Voided Midstream Performed By: #### U A #### [place] [address] [place] Bilirubin.total [Mass/volume ] in Serum or PlasmaOrdered By: Gela Eller on 07-25-2023 Bilirubin [Mass/Vol] 0.7 mg/dL 0.3-1.0 [facility] Complete Blood Count Auto Di ffon 07-25-2023 Basophils (Bld) [#/Vol] 0.1 10*3/uL Normal 0.0-0.2 [facility] Comment on above: Result Comment: PERF ORMED BY: [facility] [place] [address] PATHOLOGIST KNIFE CUTTER RAHEL TREVINO M.D. Performed By: #### G LULS #### Point of Care testing , Basophils/100 WBC (Bld) 0.9 % Normal . [facility] Comment on above: Performed By: #### G LULS #### Point of Care testing , Eosinophils (Bld) [#/Vol] 0.5 10*3/uL High 0.0-0.45 [facility] Comment on above: Performed By: #### G LULS #### Point of Care testing , Eosinophils/100 WBC (Bld) 7.7 % Normal . [facility] Comment on above: Performed By: #### G LULS #### Point of Care testing , Erythrocyte distribution width (RBC) [Ratio] 12.4 % Normal 12.0-14.8 [facility] Comment on above: Performed By: #### G LULS #### Point of Care testing , Hematocrit (Bld) [Volume fraction] 33.8 % Low 38.8-50.0 [facility] Comment on above: Performed By: #### G LULS #### Point of Care testing , Hemoglobin (Bld) [Mass/Vol] 11.3 g/dL Low 13.0-17.0 [facility] Comment on above: Performed By: #### G LULS #### Point of Care testing , Lymphocytes (Bld) [#/Vol] 0.6 10*3/uL Low 1.00-4.8 [facility] Comment on above: Performed By: #### G LULS #### Point of Care testing , Lymphocytes/100 WBC (Bld) 9.8 % Normal . [facility] Comment on above: Performed By: #### G VERNELLLS #### Point of Care testing , MCH (RBC) [Entitic mass] 29.8 pg Normal 27.5-35.2 [facility] Comment on above: Performed By: #### G LULS #### Point of Care testing , MCV (RBC) [Entitic vol] 89.0 fL Normal 83.5-101 [facility] Comment on above: Performed By: #### G LULS #### Point of Care testing , Mean Corpuscular HGB Conc 33.5 g/dL Normal 32.5-35.6 [facility] Comment on above: Performed By: #### G VERNELLLS #### Point of Care testing , Monocytes (Bld) [#/Vol] 1.3 10*3/uL High 0.0-0.8 [facility] Comment on above: Performed By: #### G VERNELLLS #### Point of Care testing , Monocytes/100 WBC (Bld) 21.3 % Normal . [facility] Comment on above: Performed By: #### G VERNELLLS #### Point of Care testing , Neutrophils (Bld) [#/Vol] 3.6 10*3/uL Normal 1.8-7.7 [facility] Comment on above: Performed By: #### G LULS #### Point of Care testing , Neutrophils/100 WBC (Bld) 60.3 % Normal . [facility] Comment on above: Performed By: #### G LULS #### Point of Care testing , NRBC% 0.1 /100{WBC} Normal 0-0.5 [facility] Comment on above: Performed By: #### G LULS #### Point of Care testing , Platelet mean volume (Bld) [Entitic vol] 10.7 fL High 6.6-10.1 [facility] Comment on above: Performed By: #### G VERNELLLS #### Point of Care testing , Platelets (Bld) [#/Vol] 188 10*3/uL Signific ant change down 150-450 [facility] Comment on above: Performed By: #### Del GREEN #### Point of Care testing , RBC (Bld) [#/Vol] 3.80 10*6/uL Low 3.90-5.60 [facility] Comment on above: Performed By: #### Del GREEN #### Point of Care testing , WBC (Bld) [#/Vol] 5.9 10*3/uL Normal 4.1-10.5 [facility] Comment on above: Performed By: #### Del GREEN #### Point of Care testing , Comprehensive Metabolic Pane jeff 07-25-2023 Albumin [Mass/Vol] 3.4 g/dL Low 3.5-5.7 [facility] Comment on above: Performed By: #### Del GREEN #### Point of Care testing , Albumin/Globulin [Mass ratio] 1.3 {ratio} Normal [facility] Comment on above: Performed By: #### Del GREEN #### Point of Care testing , ALP [Catalytic activity/Vol] 60 U/L Normal 34-104 [facility] Comment on above: Performed By: #### Del GREEN #### Point of Care testing , ALT [Catalytic activity/Vol] 9 U/L Normal 7-52 [facility] Comment on above: Performed By: #### Del GREEN #### Point of Care testing , Anion gap [Moles/Vol] 11.5 mmol/L Normal 6.0-15.0 [facility] Comment on above: Performed By: #### Del GREEN #### Point of Care testing , AST [Catalytic activity/Vol] 16 U/L Normal 13-39 [facility] Comment on above: Performed By: #### Del GREEN #### Point of Care testing , Bilirubin [Mass/Vol] 0.7 mg/dL Normal 0.3-1.0 [facility] Comment on above: Performed By: #### Del GREEN #### Point of Care testing , Calcium [Mass/Vol] 8.6 mg/dL Normal 8.6-10.3 [facility] Comment on above: Performed By: #### G LULS #### Point of Care testing , Chloride [Moles/Vol] 98 mmol/L Normal 98-107 [facility] Comment on above: Performed By: #### G LULS #### Point of Care testing , CO2 [Moles/Vol] 31.4 mmol/L High 21.0-31.0 [facility] Comment on above: Performed By: #### G LULS #### Point of Care testing , Creatinine [Mass/Vol] 2.86 mg/dL Significan t change up 0.70-1.30 [facility] Comment on above: Performed By: #### G LULS #### Point of Care testing , Creatinine Clr Calc Pharmacy 24.72 Normal [facility] Comment on above: Result Comment: PERF ORMED BY: [facility] [address] [address] PATHOLOGIST KNIFE CUTTER RAHEL TREVINO M.D. Performed By: #### G LULS #### Point of Care testing , GFR/1.73 sq M.predicted MDRD (S/P/Bld) [Vol rate/Area] 23.231 mL/min/{1.73_m2} Normal [facility] Comment on above: Performed By: #### G LULS #### Point of Care testing , Globulin (S) [Mass/Vol] 2.7 g/dL Normal [facility] Comment on above: Performed By: #### G LULS #### Point of Care testing , Glucose [Mass/Vol] 81 mg/dL Normal 70-100 [facility] Comment on above: Result Comment: [place] om Glucose Reference Range is dependent on time and content of last meal. Glucose of more than 200 mg/dL in a nonstressed, ambulatory subject supports the diagnosis of Diabetes Mellitus. ADA recommended reference range Performed By: #### G LULS #### Point of Care testing , Potassium [Moles/Vol] 3.9 mmol/L Normal 3.5-5.1 [facility] Comment on above: Performed By: #### G LULS #### Point of Care testing , Protein [Mass/Vol] 6.1 g/dL Significant change down 6.4-8.9 [facility] Comment on above: Performed By: #### G VERNELLLS #### Point of Care testing , Sodium [Moles/Vol] 137 mmol/L Normal 136-145 [facility] Comment on above: Performed By: #### G LULS #### Point of Care testing , Urea nitrogen [Mass/Vol] 44 mg/dL High 7-25 [facility] Comment on above: Performed By: #### G VERNELLLS #### Point of Care testing , Creatinine, Urine (Random)on 07-25-2023 Creatinine, Urine (Random) 141.0 mg/dL High 14.0-26.0 [facility] Comment on above: Performed By: #### C REAT, PP, LYTES, LIPID, CBC, BUN #### [facility] [address] Globulin Calc (S) [Mass/Vol] Ordered By: Gela Eller on 07-25-2023 Globulin (S) [Mass/Vol] 2.7 g/dL [facility] 07-25-2023 L ---- Specimen: [id number] Received: 07/25/23 Status: ANT Goyal Num: [id number] Spec Type: Surgical Subm Dr: Nohemy Linder MD Tissues: A Duodenum - Biopsy (DUODENUM BX) B Gastric Biopsy (GASTRIC BX) Procedures: HE/4, Gross/Micro L4/2, H PYLORI Age/ Patient Sex Location Account Attending Physician Aisha Julien /M [id number] Gela Eller MD SPEC NUM: [id number] RECD: 07/25/23 STATUS: ANT GOYAL NUM: [id number] ALLISON: 07/25/23- [facility] DR: Nohemy Linder MD ENTERED: 07/25/[address] [facility] [address]: MIA TYPE: Surgical DEPT: S ORDERED: [...] infection Clinical Information Dizzy, abnormal labs Specimen: [id number] Received: 07/25/23 Status: ANT Goyal Num: [id number] Spec Type: Surgical Subm Dr: Nohemy Linder MD Tissues: A Duodenum - Biopsy (DUODENUM BX) B Gastric Biopsy (GASTRIC BX) Procedures: HE/4, Gross/Micro L4/2, H PYLORI Patient: WilyAisha L [id number] (Continued) Specimen: [id number] Received: 07/25/23 (Continued) Signed (signature on file) Vignesh Koehler MD 07/28/231999 Specimen: [id number] Received: 07/25/23 Status: ANT Goyal Num: [id number] Spec Type: Surgical Subm Dr: Nohemy Linder MD Tissues: A Duodenum - Biopsy (DUODENUM BX) B Gastric Biopsy (GASTRIC BX) Procedures: HE/4, Gross/Micro L4/2, H PYLORI Patient: Aisha Julien Naveen [id number] (Continued) Specimen: [id number] Received: 07/25/23 (Continued) Gross Description A. Received [...] microscopic examination confirms the diagnosis. CPT Codes 09736e4, 67392b3 Specimen: [id number] Received: 07/25/23 Status: ANT Goyal Num: [id number] Spec Type: Surgical Subm Dr: Nohemy Linder MD Tissues: A Duodenum - Biopsy (DUODENUM BX) B Gastric Biopsy (GASTRIC BX) Procedures: HE/4, Gross/Micro L4/2, H PYLORI Patient: Aisha Julien [id number] (Continued) Signed (signature on file) Vignesh Koehler MD 07/28/231999 [facility] Protein [Mass/volume] in Ser um or PlasmaOrdered By: Gela Eller on 07-25-2023 Protein [Mass/Vol] 6.1 g/dL 6.4-8.9 [facility] Comment on above: Delta: 7.8 on -1228 Serum or plasma albumin/glob ulin mass ratioOrdered By: Gela Eller on 07-25-2023 Albumin/Globulin [Mass ratio] 1.3 {ratio} [facility] Sodium, Urine (Random)on Sodium (U) [Moles/Vol] 41 mmol/L Normal [facility] Comment on above: Result Comment: No r eference range established PERFORMED BY: [facility] [address] [place] [address] PATHOLOGIST KNIFE CUTTER RAHEL TREVINO M.D. Performed By: #### C REAT, PP, LYTES, LIPID, CBC, BUN #### [facility] [address] Alanine aminotransferase [En zymatic activity/volume] in Serum or PlasmaOrdered By: Jean Paul Gutiérrez on 07-24-2023 ALT [Catalytic activity/Vol] 12 U/L 7-52 [facility] Albumin [Mass/volume] in Ser um or Plasma by Bromocresol green (BCG) dye binding methoOrdered By: Jean Paul Gutiérrez on 07-24-2023 Albumin BCG dye [Mass/Vol] 4.3 g/dL 3.5-5.7 [facility] Alkaline phosphatase [Enzyma tic activity/volume] in Serum or PlasmaOrdered By: Jean Paul Gutiérrez on 07-24-2023 ALP [Catalytic activity/Vol] 72 U/L 34-104 [facility] Aspartate aminotransferase [ Enzymatic activity/volume] in Serum or PlasmaOrdered By: Jean Paul Gutiérrez on 07-24-2023 AST [Catalytic activity/Vol] 24 U/L 13-39 [facility] Automated erythrocytes count in urine sediment (number/area)Ordered By: Jean Paul Gutiérrez on 07-24-2023 RBC Auto (Urine sed) [#/Area] 5-9 [HPF] 0-4 [facility] Automated leukocytes count i n urine sediment (number/area)Ordered By: Jean Paul Gutiérrez on 07-24-2023 WBC Auto (Urine sed) [#/Area] 0-1 [HPF] 0-4 [facility] Basic Metabolic Panelon 11-3 0-2022 Anion gap [Moles/Vol] 18.0 mmol/L High 6.0-15.0 [facility] Comment on above: Performed By: #### U A #### [facility] [address] Calcium [Mass/Vol] 9.6 mg/dL Normal 8.6-10.3 [facility] Comment on above: Performed By: #### U A #### [facility] [address] Chloride [Moles/Vol] 84 mmol/L Low 98-107 [facility] Comment on above: Performed By: #### U A #### [facility] [address] CO2 [Moles/Vol] 34.9 mmol/L High 21.0-31.0 [facility] Comment on above: Performed By: #### U A #### [facility] [address] Creatinine [Mass/Vol] 4.59 mg/dL High 0.70-1.30 [facility] Comment on above: Performed By: #### U A #### [address] Creatinine Clr Calc Pharmacy 15.40 [facility] Comment on above: Performed By: #### U A #### [place] [address] [place] GFR/1.73 sq M.predicted MDRD (S/P/Bld) [Vol rate/Area] 13.168 mL/min/{1.73_m2} [facility] Comment on above: Performed By: #### U A #### [facility] [address] Glucose [Mass/Vol] 128 mg/dL High 70-100 [facility] Comment on above: Result Comment: [place] Glucose Reference Range is dependent on time and content of last meal. Glucose of more than 200 mg/dL in a nonstressed, ambulatory subject supports the diagnosis of Diabetes Mellitus. ADA recommended reference range Performed By: #### U A #### [facility] [address] [place] [address] Potassium [Moles/Vol] 2.9 mmol/L Off scale low 3.5-5.1 [facility] Comment on above: Result Comment: Crit ical Result Called to and read back by: ANDREAS CARABALLO at: 07/24/2023 13:30:58 by:MLG Performed By: #### U A #### [address] Sodium [Moles/Vol] 134 mmol/L Low 136-145 [facility] Comment on above: Performed By: #### U A #### [facility] [address] [place] [address] Urea nitrogen [Mass/Vol] 56 mg/dL High 7-25 [facility] Comment on above: Performed By: #### U A #### [facility] [address] [place] [address] Basophils Auto (Bld) [#/Vol] Ordered By: Jean Paul Gutiérrez on 07-24-2023 Basophils (Bld) [#/Vol] 0.0 10*3/uL 0.0-0.2 [facility] Basophils/100 WBC Auto (Bld) Ordered By: Jean Paul Gutiérrez on 07-24-2023 Basophils/100 WBC (Bld) 0.5 % . [facility] Bilirubin Test strip Ql (U)O rdered By: Jean Paul Gutiérrez on 07-24-2023 Bilirubin Ql (U) Negative Negative [facility] Bilirubin.direct [Mass/volum e] in Serum or PlasmaOrdered By: Jean Paul Gutiérrez on 07-24-2023 Bilirubin.direct [Mass/Vol] 0.20 mg/dL 0.03-0.18 [facility] Bilirubin.total [Mass/volume ] in Serum or PlasmaOrdered By: Jean Paul Gutiérrez on 07-24-2023 Bilirubin [Mass/Vol] 0.8 mg/dL 0.3-1.0 [facility] CT abdomen pelvis wo conon 1 1-30-2023 CT abdomen pelvis wo con [facility] [place] [address] [place] [address] CT Scan Report Signed Patient: Aisha Julien MR#: [id number] 79 : 1955 Acct:[id number] Age/Sex: 68 / M ADM Date: 07/24/23 Loc: ER Room: Type: [facility] ER Attending Dr: Copies to: Jean [...] Pelvis:[Prostatomegaly. Urinary bladder demonstrates no focal abnormality.] Peritoneum/Retroperitone um:No free air or free fluid. Left periaortic [...] Santa Jr., D.O.07/24/2023 2:43 PM Dictation Location: [place] [address] Transcribed By: [facility] 07/24/23 1443 Dictated By: Lebron Santa Jr, DO 07/24/23 1428 Signed By: 07/24/23 1443 Normal [facility] Calcium [Mass/volume] in Ser um or PlasmaOrdered By: Jean Paul Gutiérrez on 07-24-2023 Calcium [Mass/Vol] 9.6 mg/dL 8.6-10.3 [facility] Carbon dioxide, total [Moles /volume] in Serum or PlasmaOrdered By: Jean Paul Gutiérrez on 07-24-2023 CO2 [Moles/Vol] 34.9 mmol/L 21.0-31.0 [facility] Chloride [Moles/volume] in S sadi or PlasmaOrdered By: Jean Paul Gutiérrez on 07-24-2023 Chloride [Moles/Vol] 84 mmol/L 98-107 [facility] Color Auto (U)Ordered By: Vincent Gutiérrez on 07-24-2023 Color (U) Yellow Yellow [facility] Complete Blood Count Auto Di ffon 07-24-2023 Basophils (Bld) [#/Vol] 0.0 10*3/uL Normal 0.0-0.2 [facility] Comment on above: Result Comment: PERF ORMED BY: [place] [address] PATHOLOGIST KNIFE CUTTER RAHEL TREVINO M.D. Performed By: #### U A #### [address] Basophils/100 WBC (Bld) 0.5 % Normal . [facility] Comment on above: Performed By: #### U A #### [address] Eosinophils (Bld) [#/Vol] 0.1 10*3/uL Normal 0.0-0.45 [facility] Comment on above: Performed By: #### U A #### [address] Eosinophils/100 WBC (Bld) 1.0 % Normal . [facility] Comment on above: Performed By: #### U A #### [address] Erythrocyte distribution width (RBC) [Ratio] 12.4 % Normal 12.0-14.8 [facility] Comment on above: Performed By: #### U A #### [address] Hematocrit (Bld) [Volume fraction] 40.5 % Normal 38.8-50.0 [facility] Comment on above: Performed By: #### U A #### [address] Hemoglobin (Bld) [Mass/Vol] 13.7 g/dL Normal 13.0-17.0 [facility] Comment on above: Performed By: #### U A #### [address] Lymphocytes (Bld) [#/Vol] 0.9 10*3/uL Low 1.00-4.8 [facility] Comment on above: Performed By: #### U A #### [address] Lymphocytes/100 WBC (Bld) 12.6 % Normal . [facility] Comment on above: Performed By: #### U A #### [facility] [address] [place] [address] MCH (RBC) [Entitic mass] 29.8 pg Normal 27.5-35.2 [facility] Comment on above: Performed By: #### U A #### [facility] [address] [place] [address] MCV (RBC) [Entitic vol] 88.1 fL Normal 83.5-101 [facility] Comment on above: Performed By: #### U A #### [address] Mean Corpuscular HGB Conc 33.8 g/dL Normal 32.5-35.6 [facility] Comment on above: Performed By: #### U A #### [address] Monocytes (Bld) [#/Vol] 0.8 10*3/uL Normal 0.0-0.8 [facility] Comment on above: Performed By: #### U A #### [address] Monocytes/100 WBC (Bld) 21.73 % High 0.00-20.00 [facility] Comment on above: Result Comment: For adults in ED, MDW > 20.0 may be associated with a higher risk of sepsis during the first 12 hrs of hospital admission Performed By: #### U A #### [address] Monocytes/100 WBC (Bld) 10.3 % Normal . [facility] Comment on above: Performed By: #### U A #### [address] Neutrophils (Bld) [#/Vol] 5.5 10*3/uL Normal 1.8-7.7 [facility] Comment on above: Performed By: #### U A #### [place] [id number] [place] Neutrophils/100 WBC (Bld) 75.6 % Normal . [facility] Comment on above: Performed By: #### U A #### [facility] [address] [place] [address] NRBC% 0.2 /100{WBC} Normal 0-0.5 [facility] Comment on above: Performed By: #### U A #### [facility] [address] [place] [address] Platelet mean volume (Bld) [Entitic vol] 10.8 fL High 6.6-10.1 [facility] Comment on above: Performed By: #### U A #### [facility] [address] [place] [address] Platelets (Bld) [#/Vol] 256 10*3/uL Normal 150-450 [facility] Comment on above: Performed By: #### U A #### [facility] [address] [place] [address] RBC (Bld) [#/Vol] 4.60 10*6/uL Normal 3.90-5.60 [facility] Comment on above: Performed By: #### U A #### [address] WBC (Bld) [#/Vol] 7.3 10*3/uL Normal 4.1-10.5 [facility] Comment on above: Performed By: #### U A #### [address] Creatinine [Mass/volume] in Serum or PlasmaOrdered By: Jean Paul Gutiérrez on 07-24-2023 Creatinine [Mass/Vol] 4.59 mg/dL 0.70-1.30 [facility] Creatinine [Mass/volume] in UrineOrdered By: Gela Eller on 07-24-2023 Creatinine (U) [Mass/Vol] 141.0 mg/dL 14.0-26.0 [facility] Dipstick and Microscopicon 1 09-23-2022 Appearance (U) Clear Normal Clear [facility] Comment on above: Order Comment: Name Collection Type:: Clean-Voided Midstream Performed By: #### U A #### [facility] [address] [place] [address] [place] Bacteria,Urine None Seen Normal None Seen [facility] Comment on above: Order Comment: Name Collection Type:: Clean-Voided Midstream Performed By: #### U A #### [facility] [address] [place] [address] [place] Bilirubin,Urine Negative Normal Negative [facility] Comment on above: Order Comment: Name Collection Type:: Clean-Voided Midstream Performed By: #### U A #### [facility] [address] [place] [address] [place] Color (U) Yellow Normal Yellow [facility] Comment on above: Order Comment: Name Collection Type:: Clean-Voided Midstream Performed By: #### U A #### [facility] [address] [place] [address] [place] Glucose Ql (U) Normal Normal Normal [facility] Comment on above: Order Comment: Name Collection Type:: Clean-Voided Midstream Performed By: #### U A #### [facility] [address] [place] [address] [place] Hyaline Casts,Urine None Seen Normal 0-8 [facility] Comment on above: Order Comment: Name Collection Type:: Clean-Voided Midstream Result Comment: PERF ORMED BY: [address] [place] [address] PATHOLOGIST KNIFE CUTTER RAHEL TREVINO M.D. Performed By: #### U A #### [facility] [address] [place] [address] [place] Ketones Ql (U) Trace High Negative [facility] Comment on above: Order Comment: Name Collection Type:: Clean-Voided Midstream Performed By: #### U A #### [facility] [address] [place] [address] [place] Leukocyte esterase Test strip Ql (U) Negative Normal Negative [facility] Comment on above: Order Comment: Name Collection Type:: Clean-Voided Midstream Performed By: #### U A #### [facility] [address] [place] [address] [place] Nitrite,Urine Negative Normal Negative [facility] Comment on above: Order Comment: Name Collection Type:: Clean-Voided Midstream Performed By: #### U A #### [address] Occult Blood,Urine Negative Normal Negative [facility] Comment on above: Order Comment: Name Collection Type:: Clean-Voided Midstream Result Comment: PERF ORMED BY: [place] [address] PATHOLOGIST KNIFE CUTTER RAHEL TREVINO M.D. Performed By: #### U A #### [address] pH (U) 5.5 [pH] Normal 5.0-9.0 [facility] Comment on above: Order Comment: Name Collection Type:: Clean-Voided Midstream Performed By: #### U A #### [address] Protein (U) [Mass/Vol] 30 mg/dL High Negative [facility] Comment on above: Order Comment: Name Collection Type:: Clean-Voided Midstream Performed By: #### U A #### [address] RBC,Urine 5-9 High 0-4 [facility] Comment on above: Order Comment: Name Collection Type:: Clean-Voided Midstream Performed By: #### U A #### [facility] [address] [place] [address] [place] Specificy [place],Urine 1.015 Normal 1.00 1-1.03 0 [facility] Comment on above: Order Comment: Name Collection Type:: Clean-Voided Midstream Performed By: #### U A #### [address] Squamous Epithelial Cell,Urine None Seen Normal 0-2 [facility] Comment on above: Order Comment: Name Collection Type:: Clean-Voided Midstream Performed By: #### U A #### [facility] [address] [place] [address] Urobilinogen,Urine Normal Normal Normal [facility] Comment on above: Order Comment: Name Collection Type:: Clean-Voided Midstream Performed By: #### U A #### [facility] [address] WBC LM.HPF (Urine sed) [#/Area] 0 /[HPF] Normal 0-4 [facility] Comment on above: Order Comment: Name Collection Type:: Clean-Voided Midstream Performed By: #### U A #### [facility] [address] [place] [address] ECG 12 lead ECGon 07-24-2023 ECG 12 lead ECG [facility] [place] [address] Electrocardiograph Report Signed Patient: Aisha Julien MR#: [id number] 79 : 1955 Acct:[id number] Age/Sex: 68 / M ADM Date: 07/24/23 Loc: Room: [address] [place] [address] Type: ADM IN Attending Dr: Gela Eller [...] rhythm Confirmed by JEAN PAUL GUTIÉRREZ DO ([id number]) on 07/25/2023 4:32:20 PM Referred By: Electronically Signed By:JEAN PAUL GUTIÉRREZ DO Transcribed By: MUS Signed By Jean Paul Gutiérrez DO 07/25 1632 Normal [facility] ECG 12 lead ECG [facility] [place] [address] Electrocardiograph Report Signed Patient: Aisha Julien MR#: [id number] 79 : 1955 Acct:[id number] Age/Sex: 68 / M ADM Date: 07/24/23 Loc: ER Room: Type: [facility] ER Attending Dr: Ordering Provider: Jean [...] lengthened Confirmed by JEAN PAUL GUTIÉRREZ DO ([id number]) on 07/24/2023 3:51:38 PM Referred By: Electronically Signed By:JEAN PAUL GUTIÉRREZ DO Transcribed By: MUS Signed By Jean Paul Gutiérrez DO 07/24 1551 Normal [facility] Eosinophils Auto (Bld) [#/Vo l]Ordered By: Jean Paul Gutiérrez on 07-24-2023 Eosinophils (Bld) [#/Vol] 0.1 10*3/uL 0.0-0.45 [facility] Eosinophils/100 WBC Auto (Bl d)Ordered By: Jean Paul Gutiérrez on 07-24-2023 Eosinophils/100 WBC (Bld) 1.0 % . [facility] Erythrocyte distribution wid th Auto (RBC) [Ratio]Ordered By: Jean Paul Gutiérrez on 07-24-2023 Erythrocyte distribution width (RBC) [Ratio] 12.4 % 12.0-14.8 [facility] Globulin Calc (S) [Mass/Vol] Ordered By: Jean Paul Gutiérrez on 07-24-2023 Globulin (S) [Mass/Vol] 3.5 g/dL [facility] Glucose [Mass/volume] in Ser um or PlasmaOrdered By: Jean Paul Gutiérrez on 07-24-2023 Glucose [Mass/Vol] 128 mg/dL 70-100 [facility] Comment on above: ADA recommended refe rence rangeRandom Glucose Reference Range is dependent on time and content of last meal. Glucose of more than 200 mg/dL in a nonstressed, ambulatory subject supports the diagnosis of Diabetes Mellitus. Hematocrit Auto (Bld) [Volum e fraction]Ordered By: Jean Paul Gutiérrez on 07-24-2023 Hematocrit (Bld) [Volume fraction] 40.5 % 38.8-50.0 [facility] Hemoglobin [Mass/volume] in BloodOrdered By: Jean Paul Gutiérrez on 07-24-2023 Hemoglobin (Bld) [Mass/Vol] 13.7 g/dL 13.0-17.0 [facility] Hepatic Panelon 07-24-2023 Albumin [Mass/Vol] 4.3 g/dL Normal 3.5-5.7 [facility] Comment on above: Performed By: #### U A #### [facility] [address] Albumin/Globulin [Mass ratio] 1.2 {ratio} Normal [facility] Comment on above: Performed By: #### U A #### [facility] [address] [place] [address] [place] ALP [Catalytic activity/Vol] 72 U/L Normal 34-104 [facility] Comment on above: Performed By: #### U A #### [facility] [address] ALT [Catalytic activity/Vol] 12 U/L Normal 7-52 [facility] Comment on above: Performed By: #### U A #### [facility] [address] [place] [address] [place] AST [Catalytic activity/Vol] 24 U/L Normal 13-39 [facility] Comment on above: Performed By: #### U A #### [facility] [address] [place] [address] [place] Bilirubin [Mass/Vol] 0.8 mg/dL Normal 0.3-1.0 [facility] Comment on above: Performed By: #### U A #### [facility] [address] [place] [address] [place] Bilirubin,Indirect 0.6 mg/dL Normal [facility] Comment on above: Performed By: #### U A #### [facility] [address] [place] [address] [place] Bilirubin.indirect [Mass/Vol] 0.20 mg/dL High 0.03-0.18 [facility] Comment on above: Performed By: #### U A #### [facility] [address] Globulin (S) [Mass/Vol] 3.5 g/dL Normal [facility] Comment on above: Performed By: #### U A #### [facility] [address] Protein [Mass/Vol] 7.8 g/dL Normal 6.4-8.9 [facility] Comment on above: Performed By: #### U A #### [facility] [address] [place] [address] [place] INR in Platelet poor plasma by Coagulation assayOrdered By: Jean Paul Gutiérrez on 07-24-2023 INR Coag (PPP) [Relative time] 1.0 {INR} [facility] Comment on above: INR Therapeutic Rang [...] on 07-24-2023 Ketones (U) [Mass/Vol] Trace Negative [facility] Laboratory - UrinalysisOrder ed By: Jean Paul Gutiérrez on 07-24-2023 Hyaline casts LM Ql (Urine sed) None seen [LPF] 0-8 [facility] Leukocytes [#/volume] correc johnnie for nucleated erythrocytes in Blood by Automated counOrdered By: Jean Paul Gutiérrez on 07-24-2023 WBC corrected for nucl RBC Auto (Bld) [#/Vol] 7.3 10*3/uL 4.1-10.5 [facility] Lipaseon 07-24-2023 Lipase [Catalytic activity/Vol] 90.0 U/L High 11.0-82.0 [facility] Comment on above: Result Comment: PERF ORMED BY: [place] [address] PATHOLOGIST [employer]NIFE CUTTER RAHEL TREVINO M.D. Performed By: #### U A #### [facility] [address] [place] [address] [place] Performed By: #### C REAT, PP, LYTES, LIPID, CBC, BUN #### [facility] [address] [place] [address] Lipase [Enzymatic activity/v olume] in Serum or PlasmaOrdered By: Jean Paul Gutiérrez on 07-24-2023 Lipase [Catalytic activity/Vol] 90.0 U/L 11.0-82.0 [facility] Lymphocytes Auto (Bld) [#/Vo l]Ordered By: Jean Paul Gutiérrez on 07-24-2023 Lymphocytes (Bld) [#/Vol] 0.9 10*3/uL 1.00-4.8 [facility] Lymphocytes/100 WBC Auto (Bl d)Ordered By: Jean Paul Gutiérrez on 07-24-2023 Lymphocytes/100 WBC (Bld) 12.6 % . [facility] MCH Auto (RBC) [Entitic mass ]Ordered By: Jean Paul Gutiérrez on 07-24-2023 MCH (RBC) [Entitic mass] 29.8 pg 27.5-35.2 [facility] MCHC Auto (RBC) [Mass/Vol]Or dered By: Jean Paul Gutiérrez on 07-24-2023 MCHC (RBC) [Mass/Vol] 33.8 g/dL 32.5-35.6 [facility] MCV Auto (RBC) [Entitic vol] Ordered By: Jean Paul Gutiérrez on 07-24-2023 MCV (RBC) [Entitic vol] 88.1 fL 83.5-101 [facility] Magnesiumon 07-24-2023 Magnesium [Mass/Vol] 2.1 mg/dL Normal 1.9-2.7 [facility] Comment on above: Performed By: #### U A #### [facility] [address] Magnesium [Mass/volume] in S sadi or PlasmaOrdered By: Gela Eller on 07-24-2023 Magnesium [Mass/Vol] 2.1 mg/dL 1.9-2.7 [facility] Monocyte distribution width [Entitic volume] in Blood by AutomatedOrdered By: Jean Paul Gutiérrez on 07-24-2023 Monocyte distribution width Auto (Bld) [Entitic vol] 21.73 % 0.00-20.00 [facility] Comment on above: For adults in ED, MD W > 20.0 may be associated with a higher risk of sepsis during the first 12 hrs of hospital admission Monocytes Auto (Bld) [#/Vol] Ordered By: Jean Paul Gutiérrez on 07-24-2023 Monocytes (Bld) [#/Vol] 0.8 10*3/uL 0.0-0.8 [facility] Monocytes/100 WBC Auto (Bld) Ordered By: Jean Paul Gutiérrez on 07-24-2023 Monocytes/100 WBC (Bld) 10.3 % . [facility] Neutrophils Auto (Bld) [#/Vo l]Ordered By: Jean Paul Gutiérrez on 07-24-2023 Neutrophils (Bld) [#/Vol] 5.5 10*3/uL 1.8-7.7 [facility] Neutrophils/100 WBC Auto (Bl d)Ordered By: Jean Paul Gutiérrez on 07-24-2023 Neutrophils/100 WBC (Bld) 75.6 % . [facility] Nitrite Test strip Ql (U)Ord ered By: Jean Paul Gutiérrez on 07-24-2023 Nitrite Ql (U) Negative Negative [facility] No Panel InformationOrdered By: Jean Paul Gutiérrez on 07-24-2023 Estimated GFR (CKD-EPI) 13.168 mL/Min [facility] Creatinine Clearance (Chem 15.40 [facility] Nucleated erythrocytes [Pres ence] in Blood by Automated countOrdered By: Jean Paul Gutiérrez on 07-24-2023 Nucleated RBC Auto Ql (Bld) 0.2 /100{WBC} 0-0.5 [facility] Platelet mean volume Auto (B ld) [Entitic vol]Ordered By: Jean Paul Gutiérrez on 07-24-2023 Platelet mean volume (Bld) [Entitic vol] 10.8 fL 6.6-10.1 [facility] Platelets Auto (Bld) [#/Vol] Ordered By: Jean Paul Gutiérrez on 07-24-2023 Platelets (Bld) [#/Vol] 256 10*3/uL 150-450 [facility] Potassium [Moles/volume] in Serum or PlasmaOrdered By: Jean Paul Gutiérrez on 07-24-2023 Potassium [Moles/Vol] 2.9 mmol/L 3.5-5.1 [facility] Comment on above: Critical Result Call ed to and read back by: ANDREAS CARABALLO at: 07/24/2023 13:30:58 by:MLG Protein Auto test strip (U) [Mass/Vol]Ordered By: Jean Paul Gutiérrez on 07-24-2023 Protein (U) [Mass/Vol] 30 mg/dL Negative [facility] Protein [Mass/volume] in Ser um or PlasmaOrdered By: Jean Paul Gutiérrez on 07-24-2023 Protein [Mass/Vol] 7.8 g/dL 6.4-8.9 [facility] Prothrombin Time INRon 07-24 INR Coag (PPP) [Relative time] 1.0 {INR} Normal [facility] Comment on above: Result Comment: INR [...] heart valves: 3 - 4.5 PERFORMED BY: [place] [address] PATHOLOGIST KNIFE CUTTER RAHEL TREVINO M.D. Performed By: #### U A #### [address] PT Coag (PPP) [Time] 12.2 s Normal 9.0-12.9 [facility] Comment on above: Result Comment: A he matocrit value greater than 55% may lead to inaccurate results in coagulation testing. Patients having hematocrit values >55% require a special collection tube for coagulation studies. Please contact the laboratory at [phone] for redraw instructions. Performed By: #### U A #### [facility] [address] Prothrombin time (PT)Ordered By: Jean Paul Gutiérrez on 07-24-2023 PT Coag (PPP) [Time] 12.2 s 9.0-12.9 [facility] Comment on above: A hematocrit value g reater than 55% may lead to inaccurate results in coagulation testing. Patients having hematocrit values >55% require a special collection tube for coagulation studies. Please contact the laboratory at [phone] for redraw instructions. RBC Auto (Bld) [#/Vol]Ordere d By: Jean Paul Gutiérrez on 07-24-2023 RBC (Bld) [#/Vol] 4.60 10*6/uL 3.90-5.60 [facility] Serum or plasma albumin/glob ulin mass ratioOrdered By: Jean Paul Gutiérrez on 07-24-2023 Albumin/Globulin [Mass ratio] 1.2 {ratio} [facility] Serum or plasma anion gap de terminationOrdered By: Jean Paul Gutiérrez on 07-24-2023 Anion gap [Moles/Vol] 18.0 mmol/L 6.0-15.0 [facility] Serum or plasma non-glucuron idated bilirubin measurement (mass/volume)Ordered By: Jean Paul Gutiérrez on 07-24-2023 Bilirubin.indirect [Mass/Vol] 0.6 mg/dL [facility] Sodium [Moles/volume] in Ser um or PlasmaOrdered By: Jean Paul Gutiérrez on 07-24-2023 Sodium [Moles/Vol] 134 mmol/L 136-145 [facility] Sodium [Moles/volume] in Uri neOrdered By: Gela Eller on 07-24-2023 Sodium (U) [Moles/Vol] 41 mmol/L [facility] Comment on above: No reference range e stablished Specific gravity Auto test s trip (U) [Rel density]Ordered By: Jean Paul Gutiérrez on 07-24-2023 Specific gravity (U) [Rel density] 1.015 1.001-1.03 0 [facility] Squamous epithelial cells de tection in urine sediment by light microscopyOrdered By: Jean Paul Gutiérrez on 07-24-2023 Epithelial cells.squamous LM Ql (Urine sed) None seen [HPF] 0-2 [facility] Troponin I High Sensitivityo n 07-24-2023 Troponin I High Sensitivity 11.8 pg/mL Normal 0.0-20.0 [facility] Comment on above: Result Comment: PERF ORMED BY: [place] [address] PATHOLOGIST [employer]IFE CUTTER RAHEL TREVINO M.D. Performed By: #### U A #### [address] Troponin I.cardiac [Mass/vol ume] in Serum or Plasma by Detection limit <= 0.01 ng/Ordered By: Jean Paul Gutiérrez on 07-24-2023 Troponin I.cardiac DL <= 0.01 ng/mL [Mass/Vol] 11.8 pg/mL 0.0-20.0 [facility] Urea nitrogen [Mass/volume] in Serum or PlasmaOrdered By: Jean Paul Gutiérrez on 07-24-2023 Urea nitrogen [Mass/Vol] 56 mg/dL 03-18 [facility] Urine bacteria detection by automated methodOrdered By: Jean Paul Gutiérrez on 07-24-2023 Bacteria Auto Ql (U) None seen None Seen [facility] Urine clarity by refractomet ry automatedOrdered By: Jean Paul Gutiérrez on 07-24-2023 Clarity Refractometry automated (U) Clear Clear [facility] Urine glucose measurement by automated test strip (mass/volume)Ordered By: Jean Paul Gutiérrez on 07-24-2023 Glucose Auto test strip (U) [Mass/Vol] Normal mg/dL Normal [facility] Urine hemoglobin detection b y automated test stripOrdered By: Jean Paul Gutiérrez on 07-24-2023 Hemoglobin Auto test strip Ql (U) Negative Negative [facility] Urine leukocyte esterase det ection by automated test stripOrdered By: Jean Paul Gutiérrez on 07-24-2023 Leukocyte esterase Auto test strip Ql (U) Negative Negative [facility] Urobilinogen Auto test strip (U) [Mass/Vol]Ordered By: Jean Paul Gutiérrez on 07-24-2023 Urobilinogen (U) [Mass/Vol] Normal mg/dL Normal [facility] WBC Auto (Bld) [#/Vol]Ordere d By: Jean Paul Gutiérrez on 07-24-2023 WBC (Bld) [#/Vol] 7.3 10*3/uL 4.1-10.5 [facility] pH Auto test strip (U)Ordere d By: Jean Paul Gutiérrez on 07-24-2023 pH (U) 5.5 [pH] 5.0-9.0 [facility] Tobacco Screening.on 023 Tobacco use status CPHS b) No M [facility] y 250 DO Work Phone: Activated partial thrombopla stin time (aPTT) in platelet poor plasma by coagulation aOrdered By: Joselito Madsen on 01-15-2023 aPTT Coag (PPP) [Time] 29.1 s 25.1-36.5 [facility] Basophils Auto (Bld) [#/Vol] Ordered By: Joselito Madsen on 01-15-2023 Basophils (Bld) [#/Vol] 0.0 10*3/uL 0.0-0.2 [facility] Basophils/100 WBC Auto (Bld) Ordered By: Joselito Madsen on 01-15-2023 Basophils/100 WBC (Bld) 0.7 % . [facility] Blood Urea Nitrogenon 2022 Urea nitrogen [Mass/Vol] 19 mg/dL Normal 03-18 [facility] Comment on above: Performed By: #### C REAT, PP, LYTES, LIPID, CBC, BUN #### [facility] [address] Carbon dioxide, total [Moles /volume] in Serum or PlasmaOrdered By: Joselito Madsen on 01-15-2023 CO2 [Moles/Vol] 24.1 mmol/L 21.0-31.0 [facility] Chloride [Moles/volume] in S sadi or PlasmaOrdered By: Joselito Madsen on 01-15-2023 Chloride [Moles/Vol] 108 mmol/L 98-107 [facility] Cholesterol [Mass/volume] in Serum or PlasmaOrdered By: Joselito Madsen on 01-15-2023 Cholesterol [Mass/Vol] 123 mg/dL 140-200 [facility] Comment on above: Chol less than 200 m g/dl low riskChol 201-239 mg/dl borderline riskChol 240 mg/dl and greater high risk Cholesterol in LDL Calc [Mas s/Vol]Ordered By: Joselito Mdasen on 01-15-2023 Cholesterol in LDL [Mass/Vol] 49 mg/dL 0-100 [facility] Comment on above: LDL ATP III CLASSIFI CATIONLDL less than 100 mg/dL OptimalLDL 100-129 mg/dL Near or above optimalLDL 130-159 mg/dL Borderline highLDL 160-189 mg/dL HighLDL greater than 189 mg/dL Very high Cholesterol in VLDL Calc [Ma ss/Vol]Ordered By: Joselito Madsen on 01-15-2023 Cholesterol in VLDL [Mass/Vol] 10 mg/dL [facility] Coagulation Profileon 2022 aPTT Coag (Bld) [Time] 29.1 s Normal 25.1-36.5 [facility] Comment on above: Result Comment: PERF ORMED BY: [place] [address] PATHOLOGIST [employer]NIFE CUTTER RAHEL TREVINO M.D. Performed By: #### C REAT, PP, LYTES, LIPID, CBC, BUN #### [facility] [address] [place] [address] INR Coag (PPP) [Relative time] 1.0 {INR} Normal [facility] Comment on above: Result Comment: INR [...] REAT, PP, LYTES, LIPID, CBC, BUN #### [address] PT Coag (PPP) [Time] 11.0 s Normal 9.0-12.9 [facility] Comment on above: Performed By: #### C REAT, PP, LYTES, LIPID, CBC, BUN #### [address] Complete Blood Count Auto Di ffon 01-15-2023 Basophils (Bld) [#/Vol] 0.0 10*3/uL Normal 0.0-0.2 [facility] Comment on above: Result Comment: PERF ORMED BY: [place] [address] PATHOLOGIST KNIFE CUTTER RAHEL TREVINO M.D. Performed By: #### C REAT, PP, LYTES, LIPID, CBC, BUN #### [address] Basophils/100 WBC (Bld) 0.7 % Normal . [facility] Comment on above: Performed By: #### C REAT, PP, LYTES, LIPID, CBC, BUN #### [address] Eosinophils (Bld) [#/Vol] 0.5 10*3/uL High 0.0-0.45 [facility] Comment on above: Performed By: #### C REAT, PP, LYTES, LIPID, CBC, BUN #### [address] Eosinophils/100 WBC (Bld) 9.6 % Normal . [facility] Comment on above: Performed By: #### C REAT, PP, LYTES, LIPID, CBC, BUN #### [address] Erythrocyte distribution width (RBC) [Ratio] 13.3 % Normal 12.0-14.8 [facility] Comment on above: Performed By: #### C REAT, PP, LYTES, LIPID, CBC, BUN #### [address] Hematocrit (Bld) [Volume fraction] 38.8 % Normal 38.8-50.0 [facility] Comment on above: Performed By: #### C REAT, PP, LYTES, LIPID, CBC, BUN #### [address] Hemoglobin (Bld) [Mass/Vol] 12.7 g/dL Low 13.0-17.0 [facility] Comment on above: Performed By: #### C REAT, PP, LYTES, LIPID, CBC, BUN #### [address] Lymphocytes (Bld) [#/Vol] 1.0 10*3/uL Normal 1.00-4.8 [facility] Comment on above: Performed By: #### C REAT, PP, LYTES, LIPID, CBC, BUN #### [address] Lymphocytes/100 WBC (Bld) 19.2 % Normal . [facility] Comment on above: Performed By: #### C REAT, PP, LYTES, LIPID, CBC, BUN #### [address] MCH (RBC) [Entitic mass] 29.2 pg Normal 27.5-35.2 [facility] Comment on above: Performed By: #### C REAT, PP, LYTES, LIPID, CBC, BUN #### [address] MCV (RBC) [Entitic vol] 89.1 fL Normal 83.5-101 [facility] Comment on above: Performed By: #### C REAT, PP, LYTES, LIPID, CBC, BUN #### [address] Mean Corpuscular HGB Conc 32.7 g/dL Normal 32.5-35.6 [facility] Comment on above: Performed By: #### C REAT, PP, LYTES, LIPID, CBC, BUN #### [address] Monocytes (Bld) [#/Vol] 0.9 10*3/uL High 0.0-0.8 [facility] Comment on above: Performed By: #### C REAT, PP, LYTES, LIPID, CBC, BUN #### [address] Monocytes/100 WBC (Bld) 17.1 % Normal . [facility] Comment on above: Performed By: #### C REAT, PP, LYTES, LIPID, CBC, BUN #### [address] Neutrophils (Bld) [#/Vol] 2.7 10*3/uL Normal 1.8-7.7 [facility] Comment on above: Performed By: #### C REAT, PP, LYTES, LIPID, CBC, BUN #### [address] Neutrophils/100 WBC (Bld) 53.4 % Normal . [facility] Comment on above: Performed By: #### C REAT, PP, LYTES, LIPID, CBC, BUN #### [address] NRBC% 0.1 /100{WBC} Normal 0-0.5 [facility] Comment on above: Performed By: #### C REAT, PP, LYTES, LIPID, CBC, BUN #### [address] Platelet mean volume (Bld) [Entitic vol] 9.0 fL Normal 6.6-10.1 [facility] Comment on above: Performed By: #### C REAT, PP, LYTES, LIPID, CBC, BUN #### [address] Platelets (Bld) [#/Vol] 170 10*3/uL Normal 150-450 [facility] Comment on above: Performed By: #### C REAT, PP, LYTES, LIPID, CBC, BUN #### [facility] [address] RBC (Bld) [#/Vol] 4.36 10*6/uL Normal 3.90-5.60 [facility] Comment on above: Performed By: #### C REAT, PP, LYTES, LIPID, CBC, BUN #### [address] WBC (Bld) [#/Vol] 5.0 10*3/uL Normal 4.1-10.5 [facility] Comment on above: Performed By: #### C REAT, PP, LYTES, LIPID, CBC, BUN #### [address] Creatinineon 01-15-2023 Creatinine [Mass/Vol] 1.22 mg/dL Normal 0.70-1.30 [facility] Comment on above: Performed By: #### C REAT, PP, LYTES, LIPID, CBC, BUN #### [address] GFR/1.73 sq M.predicted MDRD (S/P/Bld) [Vol rate/Area] mL/min/{1.73_m2} [facility] Comment on above: Performed By: #### C REAT, PP, LYTES, LIPID, CBC, BUN #### [address] Creatinine [Mass/volume] in Serum or PlasmaOrdered By: Joselito Madsen on 01-15-2023 Creatinine [Mass/Vol] 1.22 mg/dL 0.70-1.30 [facility] ECG 12 lead ECGon 01-15-2023 ECG 12 lead ECG [facility] [place] [address] [place] [address] Electrocardiograph Report Signed Patient: Aisha Julien MR#: [id number] : 1955 Acct:[id number] Age/Sex: 67 / M ADM Date: 01/15/23 Loc: Room: Type: [facility] Attending Dr: Joselito Madsen DO Ordering Provider: Joselito Madsen DO Date of Service: 01/15/23 ECG/ECG 12 lead ECG: [facility] Copies to: Test Reason : Blood [...] Electronically Signed By:PATY MACKEY MD Transcribed By: YESY Signed By Paty Mackey MD 1943 [facility] Electrolyteson 01-15-2023 Anion gap [Moles/Vol] 10.5 mmol/L Normal 6.0-15.0 [facility] Comment on above: Performed By: #### C REAT, PP, LYTES, LIPID, CBC, BUN #### [facility] [address] [place] [address] [place] Chloride [Moles/Vol] 108 mmol/L High 98-107 [facility] Comment on above: Performed By: #### C REAT, PP, LYTES, LIPID, CBC, BUN #### [facility] [address] [place] [address] [place] CO2 [Moles/Vol] 24.1 mmol/L Normal 21.0-31.0 [facility] Comment on above: Performed By: #### C REAT, PP, LYTES, LIPID, CBC, BUN #### [facility] [address] [place] [address] [place] Potassium [Moles/Vol] 4.6 mmol/L Normal 3.5-5.1 [facility] Comment on above: Performed By: #### C REAT, PP, LYTES, LIPID, CBC, BUN #### [facility] [address] [place] [address] [place] Sodium [Moles/Vol] 138 mmol/L Normal 136-145 [facility] Comment on above: Performed By: #### C REAT, PP, LYTES, LIPID, CBC, BUN #### [facility] [address] [place] [id number] [facility] Eosinophils Auto (Bld) [#/Vo l]Ordered By: Joselito Madsen on 01-15-2023 Eosinophils (Bld) [#/Vol] 0.5 10*3/uL 0.0-0.45 [facility] Eosinophils/100 WBC Auto (Bl d)Ordered By: Joselito Madsen on 01-15-2023 Eosinophils/100 WBC (Bld) 9.6 % . [facility] Erythrocyte distribution wid th Auto (RBC) [Ratio]Ordered By: Joselito Madsen on 01-15-2023 Erythrocyte distribution width (RBC) [Ratio] 13.3 % 12.0-14.8 [facility] Hematocrit Auto (Bld) [Volum e fraction]Ordered By: Joselito Madsen on 01-15-2023 Hematocrit (Bld) [Volume fraction] 38.8 % 38.8-50.0 [facility] Hemoglobin [Mass/volume] in BloodOrdered By: Joselito Madsen on 01-15-2023 Hemoglobin (Bld) [Mass/Vol] 12.7 g/dL 13.0-17.0 [facility] Laboratory - Chemistry and C hemistry - challengeon 01-15-2023 Cholesterol [Mass/Vol] 123\S\123 below low threshold 140-200 [facility] Work Phone: Comment on above: Chol less than 200 m g/dl low risk Chol 201-239 mg/dl borderline risk Chol 240 mg/dl and greater high risk Cholesterol in LDL [Mass/Vol] 49\S\49 Normal 0-100 [facility] y 250 DO Work Phone: Comment on above: LDL ATP III CLASSIFI CATION LDL less than 100 mg/dL Optimal LDL 100-129 mg/dL Near or above optimal LDL 130-159 mg/dL Borderline high LDL 160-189 mg/dL High LDL greater than 189 mg/dL Very high Laboratory - CoagulationOrde red By: Joselito Madsen on 01-15-2023 PT Coag (PPP) [Time] 11.0 s 9.0-12.9 [facility] Leukocytes [#/volume] correc johnnie for nucleated erythrocytes in Blood by Automated counOrdered By: Joselito Madsen on 01-15-2023 WBC corrected for nucl RBC Auto (Bld) [#/Vol] 5.0 10*3/uL 4.1-10.5 [facility] Lipid Panelon 01-15-2023 Cholesterol [Mass/Vol] 123 mg/dL Low 140-200 [facility] Comment on above: Result Comment: Chol less than 200 mg/dl low risk Chol 201-239 mg/dl borderline risk Chol 240 mg/dl and greater high risk Performed By: #### C REAT, PP, LYTES, LIPID, CBC, BUN #### [facility] [address] Cholesterol in HDL [Mass/Vol] 64 mg/dL Normal 29-71 [facility] Comment on above: Result Comment: HDL CHOL ATP-III CLASSIFICATION Cardiovascular Risk HDL > or equal to 60 mg/dL LOW HDL < 40 mg/dL HIGH Performed By: #### C REAT, PP, LYTES, LIPID, CBC, BUN #### [facility] [address] Cholesterol.total/Kimberly sterol in HDL [Mass ratio] 1.9 {ratio} Normal <5.0 [facility] Comment on above: Result Comment: PERF ORMED BY: [place] [address] PATHOLOGIST KNIFE CUTTER RAHEL TREVINO M.D. Performed By: #### C REAT, PP, LYTES, LIPID, CBC, BUN #### [facility] [address] LDL Cholesterol,Calculated 49 mg/dL Normal 0-100 [facility] Comment on above: Result Comment: LDL ATP III CLASSIFICATION LDL less than 100 mg/dL Optimal LDL 100-129 mg/dL Near or above optimal LDL 130-159 mg/dL Borderline high LDL 160-189 mg/dL High LDL greater than 189 mg/dL Very high Performed By: #### C REAT, PP, LYTES, LIPID, CBC, BUN #### [facility] [address] [place] [address] [place] Triglyceride w/Reflex 51 mg/dL Normal 0-149 [facility] Comment on above: Result Comment: TRIG ATP III CLASSIFICATION TRIG less than 150 mg/dL Normal TRIG 150-199 mg/dL Borderline high TRIG 200-500 mg/dL High TRIG greater than 500 mg/dL Very high Standard traceable to the Center for Disease Conrtrol and Prevention (CDC) test method. Performed By: #### C REAT, PP, LYTES, LIPID, CBC, BUN #### [facility] [address] [place] [address] [place] VLDL CHOLESTEROL 10 mg/dL Normal [facility] Comment on above: Performed By: #### C REAT, PP, LYTES, LIPID, CBC, BUN #### [facility] [address] Lymphocytes Auto (Bld) [#/Vo l]Ordered By: Joselito Madsen on 01-15-2023 Lymphocytes (Bld) [#/Vol] 1.0 10*3/uL 1.00-4.8 [facility] Lymphocytes/100 WBC Auto (Bl d)Ordered By: Joselito Madsen on 01-15-2023 Lymphocytes/100 WBC (Bld) 19.2 % . [facility] MCH Auto (RBC) [Entitic mass ]Ordered By: Joselito Madsen on 01-15-2023 MCH (RBC) [Entitic mass] 29.2 pg 27.5-35.2 [facility] MCHC Auto (RBC) [Mass/Vol]Or dered By: Joselito Madsen on 01-15-2023 MCHC (RBC) [Mass/Vol] 32.7 g/dL 32.5-35.6 [facility] MCV Auto (RBC) [Entitic vol] Ordered By: Joselito Madsen on 01-15-2023 MCV (RBC) [Entitic vol] 89.1 fL 83.5-101 [facility] Monocytes Auto (Bld) [#/Vol] Ordered By: Joselito Madsen on 01-15-2023 Monocytes (Bld) [#/Vol] 0.9 10*3/uL 0.0-0.8 [facility] Monocytes/100 WBC Auto (Bld) Ordered By: Joselito Madsen on 01-15-2023 Monocytes/100 WBC (Bld) 17.1 % . [facility] Neutrophils Auto (Bld) [#/Vo l]Ordered By: Joselito Madsen on 01-15-2023 Neutrophils (Bld) [#/Vol] 2.7 10*3/uL 1.8-7.7 [facility] Neutrophils/100 WBC Auto (Bl d)Ordered By: Joselito Madsen on 01-15-2023 Neutrophils/100 WBC (Bld) 53.4 % . [facility] No Panel InformationOrdered By: Joselito Madsen on 01-15-2023 Estimated GFR (CKD-EPI) > 60.0 mL/Min [facility] Creatinine Clearance (Chem N/A [facility] No Panel Informationon 01-15 0.0\S\0.0 Normal 0.0-0.2 [facility] 250 DO Work Phone: Comment on above: PERFORMED BY:[facility] [place], [place] [phone] MEDICAL DIRECTORRAHEL TREVINO M.D. 0.5\S\0.5 above high threshold 0.0-0.45 [facility] 250 DO Work Phone: 0.9\S\0.9 above high threshold 0.0-0.8 [facility] 250 DO Work Phone: 1.0\S\1.0 Normal [facility] 250 DO Work Phone: Comment [...] valves: 3 - 4.5 2.7\S\2.7 Normal 1.8-7.[address] [facility] 250 DO Work Phone: [phone] 0.1\S\0.1 Normal 0-0.[address] [facility] 250 DO Work Phone: [phone] 0.7\S\0.[address] [facility] 250 DO Work Phone: [phone] 9.6\S\9.[address] [facility] 250 DO Work Phone: [phone] 17.1\S\17.[address] [facility] 250 DO Work Phone: [phone] 19.2\S\19.[address] [facility] 250 DO Work Phone: [phone] 53.4\S\53.[address] [facility] 250 DO Work Phone: [phone] 9.0\S\9.0 Normal 6.6-10.[address] [facility] 250 DO Work Phone: [phone] 170\S\170 Normal 150-[address] [facility] 250 DO Work Phone: [phone] 13.3\S\13.3 Normal 12.0-14.[address] [facility] 250 DO Work Phone: [phone] 32.7\S\32.7 Normal 32.5-35.[address] [facility] 250 DO Work Phone: [phone] 29.2\S\29.2 Normal 27.5-35.[address] [facility] 250 DO Work Phone: [phone] 89.1\S\89.1 Normal 83.5-[address] [facility] 250 DO Work Phone: [phone] 38.8\S\38.8 Normal 38.8-50.[address] [facility] 250 DO Work Phone: [phone] 12.7\S\12.7 below low threshold 13.0-17.[address] [facility] 250 DO Work Phone: 4.36\S\4.36 Normal 3.90-5.[address] [facility] 250 DO Work Phone: 5.0\S\5.0 Normal 4.1-10.[address] [facility] 250 DO Work Phone: [phone] 29.1\S\29.1 Normal 25.1-36.[address] [facility] 250 DO Work Phone: [phone] Comment on above: PERFORMED BY:[place] [address] [place], [place] [phone] MEDICAL DIRECTORRAHEL TREVINO M.D. 11.0\S\11.0 Normal 9.0-12.[address] [facility] 250 DO Work Phone: [phone] 10.5\S\10.5 Normal 6.0-15.[address] [facility] 250 DO Work Phone: 24.1\S\24.1 Normal 21.0-31.[address] [facility] 250 DO Work Phone: [phone] 108\S\108 above high threshold 98-[address] [facility] 250 DO Work Phone: 4.6\S\4.6 Normal 3.5-5.[address] [facility] 250 DO Work Phone: 138\S\138 Normal 136-[address] [facility] 250 DO Work Phone: [phone] 19\S\19 Normal 7-[address] [facility] 250 DO Work Phone: [phone] > 60.[address] [facility] 250 DO Work Phone: 1.22\S\1.22 Normal 0.70-1.[address] [facility] 250 DO Work Phone: 1.9\S\1.9 Normal <5.[address] [facility] 250 DO Work Phone: Comment on above: PERFORMED BY:[facility] [place], [place] [phone] MEDICAL DIRECTORRAHEL TREVINO M.D. 10\S\[address] [facility] 250 DO Work Phone: 51\S\51 Normal 0-149 [facility] Work Phone: Comment on above: TRIG ATP III CLASSIF ICATION TRIG less than 150 mg/dL Normal TRIG 150-199 mg/dL Borderline high TRIG 200-500 mg/dL High TRIG greater than 500 mg/dL Very high Standard traceable to the Center for Disease Conrtrol and Prevention (CDC) test method. 64\S\64 [facility] 29-71 [facility] Work Phone: Comment on above: HDL CHOL ATP-III CLA SSIFICATION Cardiovascular Risk HDL > or equal to 60 mg/dL LOW HDL < 40 mg/dL HIGH Nucleated erythrocytes [Pres ence] in Blood by Automated countOrdered By: Joselito Madsen on 01-15-2023 Nucleated RBC Auto Ql (Bld) 0.1 /100{WBC} 0-0.5 [facility] Platelet mean volume Auto (B ld) [Entitic vol]Ordered By: Joselito Madsen on 01-15-2023 Platelet mean volume (Bld) [Entitic vol] 9.0 fL 6.6-10.1 [facility] Platelet poor plasma interna tional normalized ratio (INR) by coagulation assay (relatOrdered By: Joselito Madsen on 01-15-2023 INR Coag (PPP) [Relative time] 1.0 {INR} [facility] Comment on above: INR Therapeutic Rang [...] 01-15-2023 Platelets (Bld) [#/Vol] 170 10*3/uL 150-450 [facility] Potassium [Moles/volume] in Serum or PlasmaOrdered By: Joselito Madsen on 01-15-2023 Potassium [Moles/Vol] 4.6 mmol/L 3.5-5.1 [facility] RBC Auto (Bld) [#/Vol]Ordere d By: Joselito Madsen on 01-15-2023 RBC (Bld) [#/Vol] 4.36 10*6/uL 3.90-5.60 [facility] Serum or plasma anion gap de terminationOrdered By: Joselito Madsen on 01-15-2023 Anion gap [Moles/Vol] 10.5 mmol/L 6.0-15.0 [facility] Serum or plasma high density lipoprotein (HDL) cholesterol measurementOrdered By: Joselito Madsen on 01-15-2023 Cholesterol in HDL [Mass/Vol] 64 mg/dL 29-71 [facility] Comment on above: HDL CHOL ATP-III CLA SSIFICATION Cardiovascular RiskHDL > or equal to 60 mg/dL LOWHDL < 40 mg/dL HIGH Serum or plasma total choles terol/high density lipoprotein (HDL) cholesterol mass ratOrdered By: Joselito Madsen on 01-15-2023 Cholesterol.total/Kimberly sterol in HDL [Mass ratio] 1.9 {ratio} <5.0 [facility] Sodium [Moles/volume] in Ser um or PlasmaOrdered By: Joselito Madsen on 01-15-2023 Sodium [Moles/Vol] 138 mmol/L 136-145 [facility] Triglyceride [Mass/volume] i n Serum or PlasmaOrdered By: Joselito Madsen on 01-15-2023 Triglyceride [Mass/Vol] 51 mg/dL 0-149 [facility] Comment on above: TRIG ATP III CLASSIF ICATIONTRIG less than 150 mg/dL NormalTRIG 150-199 mg/dL Borderline highTRIG 200-500 mg/dL High TRIG greater than 500 mg/dL Very highStandard traceable to the Center for Disease Conrtrol and Prevention (CDC) test method. Urea nitrogen [Mass/volume] in Serum or PlasmaOrdered By: Joselito Madsen on 01-15-2023 Urea nitrogen [Mass/Vol] 19 mg/dL 03-18 [facility] WBC Auto (Bld) [#/Vol]Ordere d By: Joselito Madsen on 01-15-2023 WBC (Bld) [#/Vol] 5.0 10*3/uL 4.1-10.5 [facility] Tobacco Screening.on 023 Adult depression screening assessment No [facility] 250 DO Work Phone: Fall risk assessment a) No falls within the last year [facility] 250 DO Work Phone: Tobacco use status [facility]PH[facility] b) No M [facility] 250 DO Work Phone: EVENT MONITORon 12-13-2021 EVENT MONITOR [address] [address] EVENT MONITOR PATIENT NAME: AISHA JULIEN : 1955 MED REC NO: [id number] ROOM: ACCOUNT NO: [id number] ADMIT DATE: 11/07/2021 PROVIDER: Inocencio Gutierrez NAME [...] for symptom control. INOCENCIO GUTIERREZ GV/V_TTHEN_I Doc#: [id number] CC: Rene Cannon [facility] CARDIAC STRESS TESTon 2021 [place] [address] CARDIAC STRESS TEST PATIENT NAME: AISHA JULIEN : 1955 MED REC NO: [id number] ROOM: ACCOUNT NO: [id number] ADMIT DATE: 11/07/2021 PROVIDER: Inocencio Gutierrez DATE [...] remained at 96%. INOCENCIO GUTIERREZ GV/V_TTRMM_I Doc#: [id number] CC: Rene Cannon [facility] CARDIAC STRESS TESTon 2021 [place] [address] CARDIAC STRESS TEST PATIENT NAME: AISHA JULIEN : 1955 MED REC NO: [id number] ROOM: ACCOUNT NO: [id number] ADMIT DATE: 11/07/2021 PROVIDER: Karina Fajardo MD [...] LAURYN/CIARAN_DESTINEEIT Doc#: Unknown CC: Rene Gutierrez Normal [facility] NM MYOCARDIAL SPECT REST EXE RCISE OR RXon 11-07-2021 NM MYOCARDIAL SPECT REST EXERCISE OR RX Radiology exam is complete. No Radiologist dictation. Please follow up with ordering provider. Final result Normal [facility] No Panel Informationon 11-07 Radiology exam is complete. No Radiologist dictation. Please follow up with ordering provider. [facility] RIS CONSOLIDATED STRESS TEST REPORTon 022 Karina Fajardo MD - 11/07/2021 1:54 PM EDT [facility] [address] [address] CARDIAC STRESS TEST PATIENT NAME: AISHA JULIEN : 1955 MED REC NO: [id number] ROOM: ACCOUNT NO: [id number] ADMIT DATE: 11/07/2021 PROVIDER: Karina Fajardo MD [...] MD LAURYN/CIARAN_RALF Doc#: Unknown CC: Rene Gutierrez [employer] Work Phone: [employer] Phone: VL DUP CAROTID BILATERALon 0 11-07-2021 VL DUP CAROTID BILATERAL Radiology exam is complete. No Radiologist dictation. Please follow up with ordering provider. 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 + +--------+-- -----+-------+------+--- --------+ --- + !Prox CCA !210.63 !26.75 ! !0.87 ! ! ! + +--------+-- -----+-------+------+--- --------+ --- + !Mid CCA !114.34 !22.03 ! !0.81 ! ! ! + +--------+-- -----+-------+------+--- --------+ --- + !Dist CCA !114.34 !22.03 ! !0.81 ! ! ! + +--------+-- -----+-------+------+--- --------+ --- + !Prox ICA !74.3 !18.24 ! !0.75 ! ! ! + +--------+-- -----+-------+------+--- --------+ --- + !Mid ICA !89.69 !29.24 ! !0.67 ! ! ! + +--------+-- -----+-------+------+--- --------+ --- + !Dist ICA !76.5 !24.84 ! !0.68 ! ! ! + +--------+-- -----+-------+------+--- --------+ --- + !Prox ECA !112.72 !13.93 ! !0.88 ! ! ! + +--------+-- -----+-------+------+--- --------+ --- + !Vertebral !73.2 !14.95 ! !0.8 ! ! ! + +--------+-- -----+-------+------+--- --------+ --- + - There is antegrade vertebral flow noted on the right side. - Additional Measurements:ICAPSV/CCAP SV 0.43.ICAEDV/CCAEDV 1.09. Carotid Left Measurements + +--------+-- -----+-------+------+--- --------+ --- + !Location !PSV !EDV !Angle !RI !%Stenosis !Tortuosity ! + +--------+-- -----+-------+------+--- --------+ --- + !Prox CCA !156.34 !24.25 ! !0.84 ! ! ! + +--------+-- -----+-------+------+--- --------+ --- + !Mid CCA !158.32 !28.19 ! !0.82 ! ! ! + +--------+-- -----+-------+------+--- --------+ --- + !Dist CCA !134.66 !28.19 ! !0.79 ! ! ! + +--------+-- -----+-------+------+--- --------+ --- + !Prox ICA !99.19 !20.2 ! !0.8 ! ! ! + +--------+-- -----+-------+------+--- --------+ --- + !Mid ICA !87.54 !27.97 ! !0.68 ! ! ! + +--------+-- -----+-------+------+--- --------+ --- + !Dist ICA !91.42 !31.86 ! !0.65 ! ! ! + +--------+-- -----+-------+------+--- --------+ --- + !Prox ECA !96.53 !13.93 ! !0.86 ! ! ! + +--------+-- -----+-------+------+--- --------+ --- + !Vertebral !61.64 !17.61 ! !0.71 ! ! ! + +--------+-- -----+-------+------+--- --------+ --- + - There is antegrade vertebral flow noted on the left side. - Additional Measurements:ICAPSV/CCAP SV 0.63.ICAEDV/CCAEDV 1.31. [employer] Work Phone: Radiology Study observation (narrative) [employer] Work Phone: VL DUP CAROTID BILATERALOrde red By: Bryan Pichardo on 11-07-2021 [employer] Work Phone: XR CHEST 2 Von 10-31-2021 [...] DEBORAH PERALTA Date: 2021-10-31 13:46 Normal [facility] Complete Blood Count with Au to Diffon 10-16-2021 Basophils (Bld) [#/Vol] 0.04 10*3/uL Normal 0.00-0.20 [facility] Thoracic Medicine Specialist Comment on above: Performed By: #### C MP, TSH reflex FT4, CBCAD, MG, VITD, LIPD #### [facility] [address], [place] [id number] Basophils/100 WBC (Bld) 0.7 % [facility] Comment on above: Performed By: #### C MP, TSH reflex FT4, CBCAD, MG, VITD, LIPD #### [facility] [address], [place] [id number] Eosinophils (Bld) [#/Vol] 0.12 10*3/uL Normal 0.02-0.50 [facility] [place] Specialist Comment on above: Performed By: #### C MP, TSH reflex FT4, CBCAD, MG, VITD, LIPD #### [facility] [address], [place] [id number] Eosinophils/100 WBC (Bld) 2.2 % Normal [facility] [place] Specialist Comment on above: Performed By: #### C MP, TSH reflex FT4, CBCAD, MG, VITD, LIPD #### [facility] [address], [place] [id number] Erythrocyte distribution width (RBC) [Ratio] 14.5 % Normal 11.0-15.0 [facility] [place] Specialist Comment on above: Performed By: #### C MP, TSH reflex FT4, CBCAD, MG, VITD, LIPD #### [facility] [address], [place] [id number] Hematocrit (Bld) [Volume fraction] 38.2 % Low 38.5-50.0 [facility] [place] Specialist Comment on above: Performed By: #### C MP, TSH reflex FT4, CBCAD, MG, VITD, LIPD #### [facility] [address], [place] [id number] Hemoglobin (Bld) [Mass/Vol] 12.3 g/dL Low 13.0-17.1 [facility] [place] Specialist Comment on above: Performed By: #### C MP, TSH reflex FT4, CBCAD, MG, VITD, LIPD #### [facility] [address], [place] [id number] Lymphocytes (Bld) [#/Vol] 1.2 10*3/uL Normal 0.9-3.9 [facility] [place] Specialist Comment on above: Performed By: #### C MP, TSH reflex FT4, CBCAD, MG, VITD, LIPD #### [facility] [address], [place] [id number] Lymphocytes/100 WBC (Bld) 22.1 % Normal [facility] [place] Specialist Comment on above: Performed By: #### C MP, TSH reflex FT4, CBCAD, MG, VITD, LIPD #### [facility] [address], [place] [id number] MCH (RBC) [Entitic mass] 29.4 pg Normal 27.0-33.0 [facility] [place] Specialist Comment on above: Performed By: #### C MP, TSH reflex FT4, CBCAD, MG, VITD, LIPD #### [facility] [address], [place] [id number] MCHC (RBC) [Mass/Vol] 32.2 g/dL Normal 32.0-36.0 [facility] Specialist Comment on above: Performed By: #### C MP, TSH reflex FT4, CBCAD, MG, VITD, LIPD #### [facility] [address], [place] [id number] MCV (RBC) [Entitic vol] 91 fL Normal 80-100 [facility] Specialist Comment on above: Performed By: #### C MP, TSH reflex FT4, CBCAD, MG, VITD, LIPD #### [facility] [address], [place] [id number] Monocytes (Bld) [#/Vol] 0.9 10*3/uL Normal 0.2-0.9 [facility] [place] Specialist Comment on above: Performed By: #### C MP, TSH reflex FT4, CBCAD, MG, VITD, LIPD #### [facility] [address], [place] [id number] Monocytes/100 WBC (Bld) 16.4 % Normal [facility] Specialist Comment on above: Performed By: #### C MP, TSH reflex FT4, CBCAD, MG, VITD, LIPD #### [facility] [address], [place] [id number] Neutrophils (Bld) [#/Vol] 3.1 10*3/uL Normal 1.5-7.8 [facility] Comment on above: Performed By: #### C MP, TSH reflex FT4, CBCAD, MG, VITD, LIPD #### [facility] [address], [place] [id number] Neutrophils/100 WBC (Bld) 57.5 % Normal [facility] Comment on above: Performed By: #### C MP, TSH reflex FT4, CBCAD, MG, VITD, LIPD #### [facility] [address], [place] [id number] Platelet mean volume (Bld) [Entitic vol] 10.30 fL Normal 7.50-12.50 [facility] Comment on above: Performed By: #### C MP, TSH reflex FT4, CBCAD, MG, VITD, LIPD #### [facility] [address], [place] [id number] Platelets (Bld) [#/Vol] 266 10*3/uL Normal 140-400 [facility] Comment on above: Performed By: #### C MP, TSH reflex FT4, CBCAD, MG, VITD, LIPD #### [facility] [address], [place] [id number] RBC (Bld) [#/Vol] 4.19 10*6/uL Low 4.20-5.80 [facility] Comment on above: Performed By: #### C MP, TSH reflex FT4, CBCAD, MG, VITD, LIPD #### [facility] [address], [place] [id number] RDW-SD 48.1 fL Normal 37.0-50.0 [facility] [place] Specialist Comment on above: Performed By: #### C MP, TSH reflex FT4, CBCAD, MG, VITD, LIPD #### [facility] [address], [place] [id number] WBC (Bld) [#/Vol] 5.4 10*3/uL Normal 3.8-11.0 [facility] Comment on above: Performed By: #### C MP, TSH reflex FT4, CBCAD, MG, VITD, LIPD #### [facility] [address], [place] [id number] Comprehensive Metabolic Pane jeff 10-16-2021 Albumin [Mass/Vol] 4.2 g/dL Normal 3.6-5.1 [facility] Comment on above: Performed By: #### C MP, TSH reflex FT4, CBCAD, MG, VITD, LIPD #### [facility] [address], [place] [id number] Albumin/Globulin [Mass ratio] 1.6 {ratio} Normal 1.0-2.5 [facility] Comment on above: Performed By: #### C MP, TSH reflex FT4, CBCAD, MG, VITD, LIPD #### [facility] [address], [place] [id number] ALP [Catalytic activity/Vol] 103 U/L Normal 40-129 [facility] [place] Specialist Comment on above: Performed By: #### C MP, TSH reflex FT4, CBCAD, MG, VITD, LIPD #### [facility] [address], [place] [id number] ALT [Catalytic activity/Vol] 11 U/L Normal 9-46 [facility] [place] Specialist Comment on above: Result Comment: 07/25 Female reference range changed. Performed By: #### C MP, TSH reflex FT4, CBCAD, MG, VITD, LIPD #### [facility] [address], [place] [id number] Anion gap [Moles/Vol] 19 mmol/L Normal 12-20 [facility] Comment on above: Result Comment: Effe ctive 08/30/2019 reference range changed. Performed By: #### C MP, TSH reflex FT4, CBCAD, MG, VITD, LIPD #### [facility] [address], [place] [id number] AST [Catalytic activity/Vol] 17 U/L Normal 10-40 [facility] [place] Specialist Comment on above: Performed By: #### C MP, TSH reflex FT4, CBCAD, MG, VITD, LIPD #### [facility] [address], [place] [id number] Bilirubin [Mass/Vol] 0.37 mg/dL Normal 0.30-1.20 [facility] Comment on above: Performed By: #### C MP, TSH reflex FT4, CBCAD, MG, VITD, LIPD #### [facility] [address], [place] [id number] BUN/CREA 15 Ratio Normal 6-22 [facility] Comment on above: Performed By: #### C MP, TSH reflex FT4, CBCAD, MG, VITD, LIPD #### [facility] [address], [place] [id number] Calcium [Mass/Vol] 9.5 mg/dL Normal 8.6-10.2 [facility] Comment on above: Performed By: #### C MP, TSH reflex FT4, CBCAD, MG, VITD, LIPD #### [facility] [address], [place] [id number] Chloride [Moles/Vol] 104 mmol/L Normal 98-107 [facility] Comment on above: Performed By: #### C MP, TSH reflex FT4, CBCAD, MG, VITD, LIPD #### [facility] [address], [place] [id number] CO2 [Moles/Vol] 21 mmol/L Normal 20-31 [facility] Comment on above: Performed By: #### C MP, TSH reflex FT4, CBCAD, MG, VITD, LIPD #### [facility] [address], [place] [id number] Creatinine [Mass/Vol] 0.9 mg/dL Normal 0.7-1.4 [facility] Comment on above: Performed By: #### C MP, TSH reflex FT4, CBCAD, MG, VITD, LIPD #### [facility] [address], [place] [id number] eGFRAA 100 mL/min/1.73m2 Normal >60 [facility] Specialist Comment on above: Performed By: #### C MP, TSH reflex FT4, CBCAD, MG, VITD, LIPD #### [facility] [address], [place] [id number] eGFRNAA 82 mL/min/1.73m2 Normal >60 [facility] [place] Specialist Comment on above: Performed By: #### C MP, TSH reflex FT4, CBCAD, MG, VITD, LIPD #### [facility] [address], [place] [id number] Globulin (S) [Mass/Vol] 2.6 g/dL Normal 1.9-3.7 N [facility] Specialist Comment on above: Performed By: #### C MP, TSH reflex FT4, CBCAD, MG, VITD, LIPD #### [facility] [address], [place] [id number] Glucose [Mass/Vol] 92 mg/dL Normal 65-99 [facility] [place] [facility]ist Comment on above: Result Comment: For FASTING Glucose --- ADA reference ranges: Normal 65-99 mg/dl Prediabetes 100-125 Diabetes >/= 126 Performed By: #### C MP, TSH reflex FT4, CBCAD, MG, VITD, LIPD #### [facility] [address], [place] [id number] Potassium [Moles/Vol] 4.8 mmol/L Normal 3.5-5.5 [facility] Specialist Comment on above: Performed By: #### C MP, TSH reflex FT4, CBCAD, MG, VITD, LIPD #### [facility] [address], [place] [id number] Protein [Mass/Vol] 6.8 g/dL Normal 6.1-8.1 [facility] [place] [facility] Comment on above: Performed By: #### C MP, TSH reflex FT4, CBCAD, MG, VITD, LIPD #### [facility] [address], [place] [id number] Sodium [Moles/Vol] 139 mmol/L Normal 135-146 [facility] [place] [facility] Comment on above: Performed By: #### C MP, TSH reflex FT4, CBCAD, MG, VITD, LIPD #### [facility] [address], [place] [id number] Urea nitrogen [Mass/Vol] 14 mg/dL Normal 7-25 [facility] Thoracic Medicine Specialist Comment on above: Performed By: #### C MP, TSH reflex FT4, CBCAD, MG, VITD, LIPD #### [facility] [address], [place] [id number] Lipid Panelon 10-16-2021 Cholesterol [Mass/Vol] 158 mg/dL Normal 125-200 [facility] above: Result Comment: Low risk < 200mg/dL Borderline risk 201-239 mg/dl High risk > or equal to 240 Performed By: #### C MP, TSH reflex FT4, CBCAD, MG, VITD, LIPD #### [facility] [address], [place] [id number] Cholesterol in HDL [Mass/Vol] 65 mg/dL Normal >40 [facility] [place] Specialist Comment on above: Result Comment: High Cardiovascular Risk HDL <40 mg/dL Low Cardiovascular Risk HDL > or equal to 60 mg/dl Performed By: #### C MP, TSH reflex FT4, CBCAD, MG, VITD, LIPD #### [facility] [address], [place] [id number] Cholesterol in LDL [Mass/Vol] 81 mg/dL Normal [facility] Comment on above: Result Comment: LDL ATP III CLASSIFICATION LDL less than 100 mg/dl Optimal LDL 100-129 mg/dl Near or above optimal LDL 130-159 Borderline high LDL 160-189 High LDL greater than 189 mg/dl Very High Performed By: #### C MP, TSH reflex FT4, CBCAD, MG, VITD, LIPD #### [facility] [address], [place] [id number] Cholesterol in VLDL [Mass/Vol] 12 mg/dL Normal [facility] Comment on above: Performed By: #### C MP, TSH reflex FT4, CBCAD, MG, VITD, LIPD #### [facility] [address], [place] [id number] Cholesterol.total/Kimberly sterol in HDL [Mass ratio] 2 {ratio} Normal [facility] Comment on above: Performed By: #### C MP, TSH reflex FT4, CBCAD, MG, VITD, LIPD #### [facility] [address], [place] [id number] Triglyceride [Mass/Vol] 60 mg/dL Normal 30-150 N [facility] Comment on above: Result Comment: TRIG ATPIII CLASSIFICATIONS TRIG less than 150 mg/dl Normal TRIG 150-199 mg/dl Borderline High TRIG 200-500 mg/dl High TRIG greather than 500 mg/dl Very High Performed By: #### C MP, TSH reflex FT4, CBCAD, MG, VITD, LIPD #### [facility] [address], [place] [id number] Magnesiumon 10-16-2021 Magnesium [Mass/Vol] 1.9 mg/dL Normal 1.5-2.3 She[facility] Comment on above: Performed By: #### C MP, TSH reflex FT4, CBCAD, MG, VITD, LIPD #### [facility] [address], [place] [id number] TSH w/ Reflex to Free T4on 0 10-16-2021 TSH 1.370 uIU/mL Normal 0.400-4.50 0 [facility] Thoracic Medicine Specialist Comment on above: Performed By: #### C MP, TSH reflex FT4, CBCAD, MG, VITD, LIPD #### [facility] [address], [place] [id number] Vitamin D 25-OHon 10-16-2021 VIT D 25 [place] 28 ng/ml Low >29 [facility] [place] Specialist Comment on above: Result Comment: Karissa min D Status Deficiency <20 ng/mL Insufficiency 20-29 ng/mL Optimal 30-100 ng/mL Possible Toxicity >=150 ng/mL Performed By: #### C MP, TSH reflex FT4, CBCAD, MG, VITD, LIPD #### [facility] [address], [place] [id number] XR CHEST 2 Von 09-11-2021 XR CHEST [...] DEBORAH PERALTA Date: 2021-09-11 11:13 Normal [facility] PROF CHEM 8 (BAS METB)on Anion gap [Moles/Vol] 19.0 mmol/L Normal [facility] Comment on above: Performed By: #### B MP #### [facility] [address] [address] [address] Vadim Koehler Calcium [Mass/Vol] 9.0 mg/dL Normal 8.4-10.2 [facility] Comment on above: Performed By: #### B MP #### [facility] [address] [address] [address] Vadim Koehler Chloride [Moles/Vol] 97 mmol/L Critically low 98-107 [facility] Comment on above: Performed By: #### B MP #### [facility] [address] [address] [address] Vadim Koehler CO2 [Moles/Vol] 20.0 mmol/L Critically low 22.0-30.0 [facility] Comment on above: Performed By: #### B MP #### [facility] [address] [address] [address] Vadim Koehler Creatinine [Mass/Vol] 3.03 mg/dL Critically high 0.66-1.25 [facility] Comment on above: Performed By: #### B MP #### [facility] [address] [address] [address] Vadim Koehler EGFR-AF BERMUDIAN 25 mL/min/1.73m2 Critically low >=60 [facility] Comment on above: Performed By: #### B MP #### [facility] [address] [address] [address] Vadim Koehler EGFR-NON AF BERMUDIAN 21 mL/min/1.73m2 Critically low >=60 [facility] Comment on above: Performed By: #### B MP #### [facility] [address] [address] [address] Vadim Koehler Glucose [Mass/Vol] 120 mg/dL Critically high 74-106 [facility] Comment on above: Performed By: #### B MP #### [facility] [address] [address] [address] Vadim Koehler Potassium [Moles/Vol] 4.0 mmol/L Normal 3.4-5.0 [facility] Comment on above: Performed By: #### B MP #### [facility] [address] [address] [address] Vadim Koehler Sodium [Moles/Vol] 132 mmol/L Critically low 137-145 [facility] Comment on above: Performed By: #### B MP #### [facility] [address] [address] [address] Vadim Koehler Urea nitrogen [Mass/Vol] 47.0 mg/dL Critically high 9.0-20.0 [facility] Comment on above: Performed By: #### B MP #### [facility] [address] [address] [address] Vadim Koehler Urea nitrogen/Creatinine [Mass ratio] 15.5 mg/mg Normal [facility] Comment on above: Performed By: #### B MP #### [facility] [address] [address] [address] Vadim Koehler Vital Signs Date Time Vital Sign Value Performing Clinician Facility 10-10-2023 11:33-0500 Body temperature 98.1 [degF] MD Rene Cannon Work Phone: [facility] 10-10-2023 11:33-0500 Diastolic blood pressure 72 mm[Hg] MD Rene Cannon Work Phone: [facility] 10-10-2023 11:33-0500 Heart rate 65 /min MD Rene Cannon Work Phone: [facility] 10-10-2023 11:33-0500 Respiratory rate 20 /min MD Rene Cannon Work Phone: [facility] 10-10-2023 11:33-0500 SaO2% (BldA) [Mass fraction] 99 % MD Rene Cannon Work Phone: [facility] 10-10-2023 11:33-0500 Systolic blood pressure 128 mm[Hg] MD Rene Cannon Work Phone: [facility] 10-10-2023 05:28-0500 Body weight 76.8 kg MD Rene Cannon Work Phone: [facility] 10-09-2023 12:16-0500 Body height 175.26 cm MD Rene Cannon Work Phone: [facility] 10-06-2023 22:22-0500 Diastolic blood pressure 54 mm[Hg] MD Rene Cannon Work Phone: [facility] 10-06-2023 22:22-0500 Heart rate 65 /min MD Rene Cannon Work Phone: [facility] 10-06-2023 22:22-0500 Respiratory rate 18 /min MD Rene Cannon Work Phone: [facility] 10-06-2023 22:22-0500 SaO2% (BldA) [Mass fraction] 98 % MD Rene Cannon Work Phone: [facility] 10-06-2023 22:22-0500 Systolic blood pressure 96 mm[Hg] MD Rene Cannon Work Phone: [facility] 10-06-2023 13:36-0500 Body height 175.26 cm MD Rene Cannon Work Phone: [facility] 10-06-2023 13:36-0500 Body temperature 98.2 [degF] MD Rene Cannon Work Phone: [facility] 10-06-2023 13:36-0500 Body weight 72 kg MD Rene Cannon Work Phone: [facility] 10-02-2023 14:14-0500 Body height 176.5 cm Cleveland Alberts MD Work Phone: [facility] 10-02-2023 14:14-0500 Body temperature 97.7 [degF] Cleveland Alberts MD Work Phone: [facility] 10-02-2023 14:14-0500 Body weight 68.04 kg Cleveland Alberts MD Work Phone: [facility] 10-02-2023 14:14-0500 Diastolic blood pressure 72 mm[Hg] Cleveland Alberts MD Work Phone: [facility] 10-02-2023 14:14-0500 Heart rate 76 /min Cleveland Alberts MD Work Phone: [facility] 10-02-2023 14:14-0500 Respiratory rate 16 /min Cleveland Alberts MD Work Phone: [facility] 10-02-2023 14:14-0500 Systolic blood pressure 127 mm[Hg] Cleveland Alberts MD Work Phone: [facility] 08-07-2023 13:50-0500 Body weight 63.5 kg Cleveland Alberts MD Work Phone: [facility] 08-07-2023 13:50-0500 Diastolic blood pressure 63 mm[Hg] Cleveland Alberts MD Work Phone: [facility] 08-07-2023 13:50-0500 Heart rate 139 /min Cleveland Alberts MD Work Phone: [facility] 08-07-2023 13:50-0500 Systolic blood pressure 94 mm[Hg] Cleveland Alberts MD Work Phone: [facility] 07-26-2023 15:20-0500 Body temperature 97.7 [degF] MD Rene Cannon Work Phone: [facility] 07-26-2023 15:20-0500 Diastolic blood pressure 69 mm[Hg] MD Rene Cannon Work Phone: [facility] 07-26-2023 15:20-0500 Heart rate 58 /min MD Rene Cannon Work Phone: [facility] 07-26-2023 15:20-0500 Respiratory rate 18 /min MD Rene Cannon Work Phone: [facility] 07-26-2023 15:20-0500 SaO2% (BldA) [Mass fraction] 97 % MD Rene Cannon Work Phone: [facility] 07-26-2023 15:20-0500 Systolic blood pressure 128 mm[Hg] MD Rene Cannon Work Phone: [facility] 07-26-2023 03:59-0500 Body weight 74.9 kg MD Rene Cannon Work Phone: [facility] 07-25-2023 14:39-0500 Body height 175.26 cm MD Rene Cannon Work Phone: [facility] 07-24-2023 18:07-0500 Diastolic blood pressure 56 mm[Hg] MD Rene Cannon Work Phone: [facility] 07-24-2023 18:07-0500 Heart rate 58 /min MD Rene Cannon Work Phone: [facility] 07-24-2023 18:07-0500 Respiratory rate 18 /min MD Rene Cannon Work Phone: [facility] 07-24-2023 18:07-0500 SaO2% (BldA) [Mass fraction] 100 % MD Rene Cannon Work Phone: [facility] 07-24-2023 18:07-0500 Systolic blood pressure 100 mm[Hg] MD Rene Cannon Work Phone: [facility] 07-24-2023 12:15-0500 Body height 175.26 cm MD Rene Cannon Work Phone: [facility] 07-24-2023 12:15-0500 Body temperature 97.6 [degF] MD Rene Cannon Work Phone: [facility] 07-24-2023 12:15-0500 Body weight 72.5 kg MD Rene Cannon Work Phone: [facility] 02-22-2023 11:30-0400 Body height 176.53 cm Chantal Castellanos Other [employer] Other 02-22-2023 11:30-0400 Body mass index (BMI) [Ratio] 25.79 kg/m2 Chantal Castellanos Other [employer] Other 02-22-2023 11:30-0400 Body temperature 98.9 [degF] Chantal Castellanos Other [employer] Other 02-22-2023 11:30-0400 Body weight 80.38 kg Chantal Castellanos Other [employer] Other 02-22-2023 11:30-0400 Respiratory rate 18 /min Chantal Castellanos Other [employer] Other 02-22-2023 11:30-0400 SaO2% (BldA) [Mass fraction] 96 % Chantal Castellanos Other [employer] Other 02-06-2023 11:36-0400 Body height 176.53 cm Rene Cannon [facility] Phone[facility] Work Phone: 02-06-2023 11:36-0400 Body mass index (BMI) [Ratio] 25.62 kg/m2 Rene Cannon Work Phone: [facility] [address] DO Work Phone: 02-06-2023 11:36-0400 Body surface area Derived from formula 1.97 m2 Rene Bynum Davis Work Phone: [facility] [address] DO Work Phone: 02-06-2023 11:36-0400 Body weight 79.83 kg Destineemickey Cannon Work Phone: [facility] [address] DO Work Phone: 02-06-2023 11:36-0400 Diastolic blood pressure 78 mm[Hg] Rene Bynum Davis Work Phone: [facility] [address] DO Work Phone: 02-06-2023 11:36-0400 Heart rate 66 /min Rene Bynum Davis Work Phone: [facility] [address] DO Work Phone: 02-06-2023 11:36-0400 Systolic blood pressure 136 mm[Hg] Rene Bynum Davis Work Phone: [facility] DO Work Phone: 01-17-2023 13:05-0400 Diastolic blood pressure 72 mm[Hg] MD Rene Cannon Work Phone: [facility] 01-17-2023 13:05-0400 Heart rate 60 /min MD Rene Cannon Work Phone: [facility] 01-17-2023 13:05-0400 Respiratory rate 16 /min MD Rene Cannon Work Phone: [facility] 01-17-2023 13:05-0400 SaO2% (BldA) [Mass fraction] 97 % MD Rene Cannon Work Phone: [facility] 01-17-2023 13:05-0400 Systolic blood pressure 123 mm[Hg] MD Rene Cannon Work Phone: [facility] 01-17-2023 07:26-0400 Body height 177.8 cm MD Rene Cannon Work Phone: [facility] 01-17-2023 07:26-0400 Body temperature 98.1 [degF] MD Rene Cannon Work Phone: [facility] 01-17-2023 07:26-0400 Body weight 82 kg MD Rene Cannon Work Phone: [facility] 01-09-2023 09:10-0400 Diastolic blood pressure 92 mm[Hg] Rene Cannon Work Phone: [facility] DO Work Phone: 01-09-2023 09:10-0400 Systolic blood pressure 160 mm[Hg] Rene Cannon Work Phone: [facility] [facility] DO Work Phone: 01-09-2023 09:09-0400 Body height 176.53 cm Rene Cannon Work Phone: [facility] [facility] DO Work Phone: 01-09-2023 09:09-0400 Body mass index (BMI) [Ratio] 26.49 kg/m2 Rene Cannon Work Phone: [facility] [facility] DO Work Phone: 01-09-2023 09:09-0400 Body surface area Derived from formula 1.99 m2 Rene Cannon Work Phone: [facility] DO Work Phone: 01-09-2023 09:09-0400 Body weight 82.56 kg Rene Cannon Work Phone: [facility] DO Work Phone: 01-09-2023 09:09-0400 Diastolic blood pressure 90 mm[Hg] Rene Cannon Work Phone: [facility] [facility] DO Work Phone: 01-09-2023 09:09-0400 Heart rate 70 /min Rene Cannon Work Phone: [facility] DO Work Phone: 01-09-2023 09:09-0400 Systolic blood pressure 152 mm[Hg] Rene Cannon Work Phone: [facility] DO Work Phone: 11-21-2021 14:30-0400 Body height 176.53 cm Deborah Francisco Jsamara Other [employer] Other 11-21-2021 14:30-0400 Body mass index (BMI) [Ratio] 27.36 kg/m2 Deborah Elpidio Other [employer] Other 11-21-2021 14:30-0400 Body weight 85.28 kg Deborah Elpidio Other [employer] Other 11-21-2021 14:30-0400 Diastolic blood pressure 79 mm[Hg] Deborah Francisco Jsamara Other [employer] Other 11-21-2021 14:30-0400 Systolic blood pressure 136 mm[Hg] Deborah Francisco Jsamara Other [employer] Other Encounters Encounter Date Encounter Type Care Provider Facility Start: 10-08-2023 Non-patient / Non-visit MD Ward Cannon Work Phone: [facility] Physician [facility] Infectious Disease Work Phone: Start: 10-06-2023 Non-patient / Non-visit MD Ward Cannon Work Phone: [facility] Physician [facility] Med OutPt Work Phone: Start: 10-06-2023 Evaluation and management of inpatient Rene Cannon Facility:[facility] Start: 10-06-2023 End: 10-10-2023 Evaluation and management of inpatient MD Rene Cannon Work Phone: [facility] [place] [facility] S[facility] Work Phone: Start: 10-06-2023 Telephone encounter Cleveland chang MD Work Phone: General Surgery Start: 10-02-2023 End: 10-02-2023 ambulatory RENE CANNON Facility:[facility] Start: 10-02-2023 End: 10-02-2023 Patient encounter procedure Cleveland Alberts MD Work Phone: General Surgery Comment on above: Gastric outlet obstr uction (Primary Dx); Primary malignant neuroendocrine tumor of ileum (HCC); Encounter for attention to gastrostomy (HCC); Severe protein-calorie malnutrition (HCC) Start: 10-01-2023 End: 10-01-2023 ambulatory RENE CANNON Facility:[facility] Start: 08-28-2023 End: 09-05-2023 Evaluation and management of inpatient CLEVELAND ALBERTS Facility:[facility] Start: 08-28-2023 End: 08-28-2023 ambulatory RENE CANNON Facility:[facility] Start: 08-15-2023 End: 08-15-2023 ambulatory Imad Asaad Other [employer] Other Start: 08-15-2023 Telephone encounter Imhilary Morrisseyad [facility] Start: 08-13-2023 Telephone encounter Cleveland chang MD Work Phone: General Surgery Comment on above: FMLA Paperwork Start: 08-08-2023 Preprocedural examination done Cleveland Alberts MD Work Phone: [facility] Work Phone: Start: 08-07-2023 End: 08-17-2023 Evaluation and management of inpatient BOLIVAR Misa DEAL Facility:[facility] Start: 08-07-2023 End: 08-07-2023 ambulatory IMAD ASAAD Facility:[facility] Start: 08-07-2023 End: 08-07-2023 Patient encounter procedure Samer Violetta Alberts MD Work Phone: General Surgery Comment on above: Gastric outlet obstr uction (Primary Dx) Start: 08-06-2023 Telephone encounter Samer Violetta chang MD Work Phone: General Surgery Comment on above: Received Outside Med ical Records Start: 08-05-2023 Orders Only Jessie Zamora RN Gener al Surgery Comment on above: Appointment Start: 07-30-2023 End: 07-30-2023 ambulatory RENE CANNON Not Available Start: 07-29-2023 Telephone encounter Samer Violetta chang MD Work Phone: General Surgery Comment on above: Appointment Start: 07-24-2023 End: 07-26-2023 Evaluation and management of inpatient Rene Cannon Facility:[facility] Start: 07-24-2023 End: 07-26-2023 Evaluation and management of inpatient MD Rene Cannon Work Phone: [facility] [place] [facility] Work Phone: Start: 07-24-2023 End: 07-24-2023 ambulatory RENE CANNON Not Available Start: 07-10-2023 End: 07-10-2023 ambulatory RENE CANNON Not Available Start: 02-22-2023 End: 02-22-2023 ambulatory Chantal Castellanos Other [employer] Other Start: 02-22-2023 Office outpatient vi sit 15 minutes Chantal Castellanos [facility] Start: 02-06-2023 Office outpatient vi sit 15 minutes Rene Cannon Work Phone: [facility] DO Work Phone: Start: 01-17-2023 ambulatory Arnel Madsen Facilit [id number] Start: 01-17-2023 End: 01-17-2023 ambulatory Joselito Madsen Facility:[facility] Start: 01-17-2023 End: 01-17-2023 Admission to same day surgery center MD Rene Cannon Work Phone: [facility]-Director Of Casework Services Work Phone: Start: 01-17-2023 End: 01-17-2023 ambulatory MD Rene Cannon Work Phone: [facility] Work Phone: Start: 01-15-2023 End: 01-15-2023 ambulatory Rene Cannon Facility:[facility] Start: 01-15-2023 End: 01-15-2023 Patient encounter procedure MD Rene Cannon Work Phone: [facility] [facility] Work Phone: Start: 01-09-2023 ambulatory Arnel Madsen Facilit y:[id number] Start: 12-19-2022 ambulatory Arnel Madsen Facilit y:[facility] Start: 07-04-2022 ambulatory INOCENCIO ERICKSON [facility] Start: 01-11-2022 End: 01-11-2022 ambulatory Deborah Magallanes Other [employer] Other Start: 01-11-2022 Telephone encounter Deborah Magallanes [facility] Start: 12-19-2021 End: 12-19-2021 ambulatory Deborah Magallanes Other [employer] Other Start: 12-19-2021 Telephone encounter Deborah Magallanes [facility] Start: 11-21-2021 End: 11-21-2021 ambulatory Deborah Magallanes Other [employer] Other Start: 11-21-2021 Office outpatient ne w 30 minutes Deborah Magallanes [facility] Start: 11-07-2021 End: 11-10-2021 [facility] Start: 11-07-2021 End: 11-09-2021 Subsequent hospital visit by physician [facility] Ekg [facility] EKG Comment on above: Chest pain, unspecif ied type; Syncope, unspecified syncope type Arrived [place] Start: 10-31-2021 End: 11-01-2021 ambulatory DOUGLAS GUTIERREZ Facility:[facility] Start: 09-12-2021 End: 09-13-[address] RENE CANNON Facility:[facility] Start: 09-11-2021 End: 09-12-[address] RENE CANNON Facility:[facility] Start: 09-07-2021 End: 09-07-[address] RENE CANNON Facility:[facility] Procedures Date Procedure Procedure Detail Performing Clinician Start: 10-07-2023 Screening for occult blood in feces MD Rene Cannon Work Phone: Start: 10-06-2023 Aerobic microbial culture MD Rene fournier Work Phone: Start: 10-06-2023 Bacterial ID (NA Multiplex Assay) MD Ward Cannon Work Phone: Start: 10-06-2023 SARS-CoV-2, Influenza & RSV (PCR) MD Ward Cannon Work Phone: Start: 10-06-2023 Plain chest X-ray MD Rene Cannon Work Phone: Start: 08-17-2023 Echocardiography BOLIVAR DEAL Start: 08-07-2023 Antibody screen BOLIVAR DEAL Comment on above: Order Comment: Specimen Type: BLOOD SPEC IMENOrdering Facility: [facility] Address: [address] [place] [address] Performed By: #### T [facility] ####GEOVANNA BLOOD BANKIA [id number] [address] [place] Start: 07-25-2023 Esophagogastroduodenoscopy [...] Vaccine (2 - Td or Tdap) [facility] Start: 03-17-2027 Screening for malign ant neoplasm of colon [facility] Start: 10-16-2026 Lipid panel Lipid screen [facility] Start: 09-05-2026 Diabetes Screening Diabetes Screenin [facility] Start: 08-14-2026 Diabetes Screening Diabetes Screenin [facility] Start: 08-07-2026 Diabetes Screening Diabetes Screenin [facility] Start: 10-02-2024 BP Controlled (<130/80) BP Con trolled (<130/80) [facility] Start: 08-07-2024 BP Controlled (<130/80) BP Con trolled (<130/80) [facility] Start: 10-10-2023 [facility] Start: 10-09-2023 [facility] Start: 10-08-2023 [facility] Start: 10-08-2023 Blood culture for ba cteria, including anaerobic screen Blood Culture [facility] Start: 10-07-2023 Referral to infectio us diseases physician [facility] Start: 10-07-2023 [facility] Start: 10-06-2023 Bacteria identified in Unspecified specimen by Aerobe culture [facility] Start: 10-06-2023 Hospital admission [facility] Start: 10-06-2023 [facility] Start: 10-06-2023 Bacteria identified in Blood by Culture [facility] Start: 10-06-2023 Blood culture for ba cteria, including anaerobic screen Blood Culture [facility] Start: 08-25-2023 Advance Directive Discussion A dvance Directive Discussion [facility] Start: 08-25-2023 Depression Assessment Depression Ass essment [facility] Start: 07-26-2023 [facility] Start: 07-25-2023 Comprehensive metabo lic 2000 panel - Serum or Plasma [facility] Start: 07-25-2023 [facility] Start: 07-24-2023 Blood chemistry [facility] Start: 07-24-2023 Referral to Carton Counter Feeder [facility] Start: 07-24-2023 End: 07-24-2023 [facility] Start: 07-24-2023 Referral to speech a nd language therapy service [facility] Start: 07-24-2023 Referral to machining engineer [facility] Start: 07-24-2023 Excision of Duodenum , Via Natural or Artificial Opening Endoscopic, Diagnostic Excision of Duodenum, Via Natural or Artificial Opening Endoscopic, Diagnostic [facility] Start: 07-24-2023 Excision of Stomach, Pylorus, Via Natural or Artificial Opening Endoscopic, Diagnostic Excision of Stomach, Pylorus, Via Natural or Artificial Opening Endoscopic, Diagnostic [facility] Start: 07-24-2023 Hospital admission [facility] Start: 07-24-2023 Referral to 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 [facility] Start: 04-25-2023 Influenza vaccination Influenz a Vaccine (#1) [facility] Start: 01-17-2023 End: 01-17-2023 [facility] Start: 10-16-2022 Creatinine measurement Creatinine mo [facility] Start: 10-16-2022 Potassium monitoring Potassium monit [facility] Start: 08-25-2022 Advance Directive Discussion A dvance Directive Discussion [facility] Start: 08-25-2022 Depression Assessment Depression Ass essment [facility] Start: 12-04-2021 End: 12-04-2021 Patient encounter procedure 12/04/2021 Office Visit Cardiology Douglas Gutierrez MD [address] [place] [address] [facility] [employer] Start: 04-25-2021 Influenza vaccination Flu vaccine (# 1) [facility] Start: 2020 Pneumococcal 65+ yea rs Vaccine (1 of 1 - PPSV23) Pneumococcal 65+ years Vaccine (1 of 1 - PPSV23) [facility] Start: 2020 Pneumococcal Vaccine : 65+ (1 - PCV) Pneumococcal Vaccine: 65+ (1 - PCV) [facility] Start: 2020 Pneumococcal Vaccine : 65+ (1 of 1 - PCV) Pneumococcal Vaccine: 65+ (1 of 1 - PCV) [facility] Start: 2015 RSV Vaccine (1 - 1-d ose 60+ series) RSV Vaccine (1 - 1-dose 60+ series) [facility] Start: 2010 Prostate specific an tigen measurement Prostate Cancer Screening Discussion [facility] Start: 2005 Shingles Vaccine (1 of 2) Arriaga gles Vaccine (1 of 2) [facility] Start: 2005 Shingrix Vaccine (1 of 2) Arriaga grix Vaccine (1 of 2) [facility] Start: 2000 Diabetes Screening Diabetes Screenin g [facility] Start: 2000 Screening for malign ant neoplasm of colon [facility] Start: 1990 Lipid panel Lipid Screening [facility] Start: 1974 DTaP/Tdap/Td vaccine (1 - Tdap) DTaP/Tdap/Td vaccine (1 - Tdap) [facility] Start: 1974 Urine microalbumin profile DTa P,Tdap,Td Vaccine (1 - Tdap) [facility] Start: 1973 Annual PCP Team Supervisor Sandblaster kit Disease Visit Annual PCP Team Chronic Disease Visit [facility] Start: 1973 Hepatitis C screening Hepatitis C Sc owen [facility] Start: 1967 Depression Screen Depression Screen [facility] Start: 11-23-1960 COVID-19 Vaccine (1) COVID-19 Vaccin e (1) [facility] Start: 01-15-1956 Covid-19 Vaccine (#1) Covid-19 Vacci ne (#1) [facility] Start: 1955 Hepatitis C screening Hepatitis C sc reen [facility] Anion gap measurement [facility] Blood chemistry [facility] End: 11-07-2021 Cardiac event monitor Cardiac event monitor Cardiac Services Routine Chest pain, unspecified type Syncope, unspecified syncope type 1 Occurrences starting 11/07/2021 until 11/07/2021 [facility] Work Phone: Comment on above: 1 Occurrences starti ng 11/07/2021 until 11/07/2021 Dup-scan xtr veins c omplete bilateral study VASCULAR REPORT Imaging Ordered: 11/08/2021 [facility] Comment on above: Ordered: 11/08/2021 Patient Education Ertapenem [facility] Work Phone: Patient referral [facility] Work Phone: End: 11-07-2021 Stress test, myoview Stress test, myoview Cardiac Services Routine Chest pain, unspecified type Syncope, unspecified syncope type 1 Occurrences starting 11/07/2021 until 11/07/2021 [facility] Work Phone: Comment on above: 1 Occurrences starti ng 11/07/2021 until 11/07/2021 [facility] Immunizations Immunization Date Immunization Notes Care Provider Fa cility 02-16-2023 tetanus toxoid, redu clyde diphtheria toxoid, and acellular pertussis vaccine, adsorbed Cleveland Alberts MD Work Phone: [facility] Payers Date Payer Category Payer Self-pay [id number] 2020 Medicare [id number] 2020 Medicare MEDICARE MEDICAR E A [id number] 2020-Present [phone] [address] [place] [address] Medicare [id number] 2017 Unknown 1959 Unknown [id number] 1955 Unknown [id number] [id number] 1955 Unknown [id number] 2.16.840.1.796824.3.579.2.593 1955 Unknown [id number] 2.16.840.1.663805.3.579.2.593 1955 Unknown [id number] 2.16.840.1.633803.3.579.2.593 1955 Unknown [id number] 2.16.840.1.698518.3.579.2.174 1955 Unknown [id number] 2.16.840.1.486174.3.579.2.174 1955 Unknown [id number] 2.16.840.1.907850.3.579.2.174 1955 Unknown [id number] 2.16.840.1.939257.3.579.2.174 1955 Unknown [id number] 2.16.840.1.750244.3.579.2.174 1955 Unknown [id number] 2.16.840.1.840603.3.579.2.174 1955 Unknown [id number] 2.16.840.1.799089.3.579.2.356 1955 Unknown [id number] 2.16.840.1.650028.3.579.2.356 1955 Unknown [id number] 2.16.840.1.457129.3.579.2.356 1955 Unknown [id number] 2.16.840.1.307437.3.579.2.1259 1955 Unknown [id number] 2.16.840.1.829282.3.579.2.1259 1955 Unknown [id number] 2.16.840.1.954453.3.579.2.1259 Unknown [id number] 2.16.840.1.346243.3.579.2.531 Unknown [id number] 2.16.840.1.566870.3.579.2.531 Unknown [id number] 2.16.840.1.868305.3.579.2.531 Unknown [id number] 2.16.840.1.074249.3.579.2.531 Social History Date Type Detail Facility Start: 10-23-2021 End: 10-08-2023 Tobacco smoking status IDIS Never smoked tobacco [facility] Start: 10-23-2021 End: 08-07-2023 Tobacco use and exposure Smokeless tobacco non-user [employer] Phone: Start: 10-24-2021 End: 10-02-2023 Alcohol intake Current drinker of alcohol (finding) [employer] Phone: Start: 10-24-2021 End: 08-07-2023 Alcohol intake [employer] Phone: Comment on above: couple beers at [facility] t; Start: 1955 Sex Assigned At Not on file [employer] Phone: Start: 08-07-2023 End: 10-02-2023 Sex Assigned At [employer] [facility] Start: 1955 Sex Assigned At Male [facility] Tobacco smoking status IDIS Tobacco smoking consumption unknown [facility] Start: 08-07-2023 Alcohol intake Ex-drinker (finding) [facility] National Score (1-100), lower number is lower risk 63 [facility] Start: 10-02-2023 Alcohol Comment a few beers per day [facility] Medical Equipment Procedure Code Equipment Code Equipment Origin al Text Equipment Identifier Dates [id number] Percutane Endoscopic Gastrostomy Set [id number] Start: 08-13-2023 Jejunal Feeding Set 12ff X 66cm [id number] Start: 08-13-2023 Goals Date Patient Goal Desired Activity /State Functional Status Date Assessment Result Facility 10-10-2023 Functional status Patient at Baseline [facility] Work Phone: 07-26-2023 Functional status Patient at Baseline [facility] Work Phone: 07-24-2023 Functional status Patient at Baseline [facility] Work Phone: Mental Status Date Assessment Result Facility 10-10-2023 Cognitive function Cognitive Sta tus Patient at Baseline [facility] Work Phone: 07-26-2023 Cognitive function Cognitive Sta tus Patient at Baseline [facility] Work Phone: 07-24-2023 Cognitive function Cognitive Sta tus Patient at Baseline [facility] Work Phone: Clinical Notes 11-07-2021 to 10-09-2023 Note Date & Type Note Facility 10-09-2023 Progress note Note Date/Time October 09, 2023 11:12am [facility] [address] [place] [address] Infect. Disease Progress Note Signed Patient: Aisha Julien MR#: [id number] : 1955 Acct:[id number] Age/Sex: 68 / M Adm Date: 4 Loc: 3T Room: [address] [place] [address] Type: ADM IN Attending Dr: Cali Patterson DO Copies to: ~ Date of Service: 10/09/2023 Subjective Interval history: Patient without any complaints today and states the drainage around his G-tube site is much better. Exam Physical Exam Vital Signs: Temp Pulse Resp BP Pulse Ox O2 Del Method 97.6 F 64 18 98/60 L 100 Room Air 10/09/23 04:00 10/09/23 08:00 10/09/23 08:00 10/09/23 08:00 10/09/23 08:00 10/09/23 08:00 Const General: cooperative, comfortable and no acute distress Nutritional Appearance: average body habitus Orientation: oriented x3 HEENT Head: normal to inspection Ears: hearing grossly normal bilaterally Face and sinus: normal facial exam Mouth: oral mucosae normal Eyes General: appearance normal, both eyes and all related structures Neck Neck: normal visual inspection Chest Chest palpation & inspection: normal inspection of the chest Resp Effort & Inspection: normal respiratory effort Cardio Palpation: normal PMI Rate: regular rate Rhythm: regular rhythm GI Inspection: abnormal to inspection and other (PEG tube site looks much better today. Was just cleaned) Palpation: soft Skin General: no rashes or lesions noted Neuro General: patient oriented x3 Extrem General: abnormal to inspection (RUE PICC exit site ok) Objective Labs CBC/BMP: CBC, BMP 10/09/23 06:21 Corrected WBC 10.3 Uncorrected WBC Count 10.3 RBC 3.44 L Hgb 10.1 L Hct 30.0 L Plt Count 99 L Sodium 138 Potassium 3.6 Chloride 108 H Carbon Dioxide 23.2 Anion Gap 10.4 BUN 13 Creatinine 0.79 Calcium 7.3 L Labs: 10/09/23 06:21 BUN 13 Creatinine 0.79 Microbiology Microbiology: Microbiology - Results from entire visit 10/06/23 18:07 Blood - Left Antecubital Blood Culture - Preliminary Enterobacter cloacae complex 10/06/23 18:07 Blood - Left Antecubital Bacterial ID (NA Multiplex Assay) - Final 10/06/23 23:50 G-Tube Site Superficial Wound Culture - Final Escherichia coli Klebsiella pneumoniae 10/06/23 18:15 Blood - Left Hand Blood Culture - Preliminary No Growth 2 Days 10/07/23 19:30 Stool Stool Occult Blood (ELLY) - Final 10/06/23 17:49 Nasopharyngeal SARS-CoV-2, Influenza & RSV (PCR) - Final Allergies and Medications Allergies and Active Meds Allergies No Known Allergies Allergy (Verified 10/06/23 23:05) Active Medications Acetaminophen (Acetaminophen 325 Mg Tablet) 650 mg PO Q6HR PRN PRN Reason: Pain Scale 1 - 3 or fever Stop: 10/05/24 19:15 Enoxaparin Sodium (Enoxaparin 40 Mg/0.4 Ml Syringe) 40 mg SUBCUT DAILY@10 [facility] Stop: 10/06/24 09:59 Last Admin: 10/08/23 09:35 Dose: 40 mg Finasteride (Finasteride 5 Mg Tablet) 5 mg PO QAM [facility] Stop: 10/07/24 08:59 Last Admin: 10/09/23 08:27 Dose: 5 mg Total Parenteral Nutrition 1 bag/ Potassium Acetate 20 meq/Potassium Phosphate 45 mmol/Sodium Chloride 75 meq/ Sodium Acetate 115 meq/ Calcium Gluconate 6 meq/Magnesium Sulfate 18 meq/ Multivitamins/Minerals 10 ml/ Zinc/Copper/Manganese/Selenium 1 ml/ Amino Acids 2,129.5867 mls @ 88.733 mls/hrIV DAILY@1800 [facility]; Protocol Stop: 10/06/24 17:59 Last Admin: 10/08/23 18:37 Dose: 88.7 mls/hr Fat Emulsion Intravenous 250 (ml/ IV Miscellaneous Supplies) 250 mls @ 21 mls/hr IV DAILY@1800 [facility] Stop: 10/06/24 17:59 Last Admin: 10/08/23 18:35 Dose: 21 mls/hr Meropenem (Merrem) 1 gm in 100 mls @ 33 mls/hr IV Q8H [facility] Last Admin: 10/09/23 06:37 Dose: 200 mls/hr Ondansetron HCl (Ondansetron 4 Mg/2 Ml Vial) 4 mg IV-PUSH Q8H PRN PRN Reason: Nausea And Vomiting Stop: 10/05/24 19:15 Pantoprazole Sodium (Pantoprazole 40 Mg Vial) 40 mg IV-PUSH DAILY [facility] Stop: 10/07/24 08:59 Last Admin: 10/09/23 08:28 Dose: 40 mg Sodium Chloride (Sodium Chloride 0.9 % 10 Ml Syringe) 0 ml IV-PUSH PRN PRN PRN Reason: Flush Stop: 10/05/24 17:01 Last Admin: 10/07/23 20:43 Dose: 10 ml Sodium Chloride (Sodium Chloride 0.9 % 10 Ml Vial.Pf) 10 ml INJECTION PRN PRN PRN Reason: Dilution Stop: 10/06/24 13:47 Last Admin: 10/09/23 08:28 Dose: 10 ml Sodium Chloride (Sodium Chloride 0.9 % 10 Ml Syringe) 10 ml IV-PUSH PRN PRN PRN Reason: Flush Stop: 10/06/24 13:47 Last Admin: 10/08/23 07:01 Dose: 10 ml A&P - Infectious Disease Assessment/Plan (1) Gram-negative bacteremia: (2) Skin infection at gastrostomy tube site: (3) Leukocytosis: (4) Duodenal mass: Plan Patient's PEG tube site looks great but was just clean. Leukocytosis remains resolved. Afebrile. No abdominal discomfort. Culture results from the G-tube site as above. Blood culture follow-up still pending. Continues on ertapenem. Blood culture with Enterobacter whereas wound culture around his PEG tube with E. coli and Klebsiella. Invanz will cover all of the above. As long as follow-up blood cultures clear will try to maintain the PICC line that he has in his right upper extremity. Will plan for Invanz in 2 weeks assuming follow-up bloodcultures do remain negative given patient's rapid clinical improvement. Surveillance cultures may need to be considered from the PICC line in the right upper extremity. He can follow-up with me in the office as an outpatient Documented By: Tyra Suarez MD 10/09/23 1105 Signed By: <Electronically signed by MD Tyra Suarez> 10/09/23 1111 [facility] Work Phone: 1(638) 407-774902-14-2024 Progress note Author Cali Patterson [facility] October 08, 2023 8:47pm Note Date/Time October 08, 2023 12:23pm [facility] [address] [place] [address] Hospitalist Progress Note Signed Patient: Aisha Julien MR#: [id number] : 1955 Acct:[id number] Age/Sex: 68 / M Adm Date: 4 Loc: Room: [address] [place] [address] Type: ADM IN Attending Dr: Cali Patterson DO Copies to: ~ Date of Service: 10/08/2023 Subjective Subjective Narrative: Patient is seen and examined. He has no significant complaints today. He is tolerating clear liquids that he vented via his G-tube without any difficulty, denies any abdominal pain or nausea. Is having improvement in drainage from hisG-tube site. We did discuss his current bacteremia and he has already been seenby Dr. Suarez, concern for possible PICC line infection since he has had this line ongoing for prior TPN. He verbalized understanding of our discussion. Exam Physical Exam Vital Signs: Temp Pulse Resp BP Pulse Ox O2 Del Method 97.5 F L 64 18 95/55 L 99 Room Air 10/08/23 11:41 10/08/23 11:41 10/08/23 11:41 10/08/23 11:41 10/08/23 11:41 10/08/23 11:41 Narrative: CONST- alert, in bed, no distress at rest CARD- RRR no abnormal heart tones PULM- dimin without wheeze or rhonchi, RA ABD- S/NT, NABS, thin EXTREM- no edema BLE, calves nontender SKIN- abdominal with [id number] with yellow drainage, erythema around insertion site without induration, no odor, unable to express drainage. Right arm PICC line Objective Lab Results 10/08/23 06:30 10/08/23 06:30 Microbiology Results Microbiology 10/06/23 23:50 G-Tube Site Superficial Wound Culture - Preliminary Gram Negative Bacilli 10/06/23 18:07 Blood - Left Antecubital Blood Culture - Preliminary Enterobacterales 10/06/23 18:07 Blood - Left Antecubital Bacterial ID (NA Multiplex Assay) - Final 10/07/23 19:30 Stool Stool Occult Blood (ELLY) - Final 10/06/23 18:15 Blood - Left Hand Blood Culture - Preliminary No Growth 1 Day Meds Allergies and Active Meds Allergies No Known Allergies Allergy (Verified 10/06/23 23:05) Active Meds: Active Medications Generic Name Dose Route Start Last Admin Trade Name Freq PRN Reason Stop Dose Admin Acetaminophen 650 mg 10/06/23 19:16 Acetaminophen 325 Mg Tablet PO 10/05/24 19:15 Q6HR PRN Pain Scale 1 - 3 or fever Enoxaparin Sodium 40 mg 10/07/23 10:00 10/08/23 09:35 Enoxaparin 40 Mg/0.4 Ml Syringe SUBCUT 10/06/24 09:59 40 mg DAILY@10 [facility] Administration Finasteride 5 mg 10/08/23 09:00 10/08/23 09:34 Finasteride 5 Mg Tablet PO 10/07/24 08:59 5 mg QAM [facility] Administration Total Parenteral Nutrition 1 2,129.5867 mls @ 88.733 mls/hr 10/07/23 18:00 10/07/23 20:30 bag/ Potassium Acetate 20 meq/ IV 10/06/24 17:59 88.7 mls/hr Potassium Phosphate 45 mmol/ DAILY@1800 [facility] Infusion Sodium Chloride 75 meq/ Sodium Acetate 115 meq/ Calcium Gluconate 6 meq/ Magnesium Protocol Sulfate 18 meq/ Multivitamins/ Per Protocol Minerals 10 ml/ Zinc/Copper/ Manganese/Selenium 1 ml/ Amino Acids Fat Emulsion Intravenous 250 250 mls @ 21 mls/hr 10/07/23 18:00 10/07/23 18:12 ml/ IV Miscellaneous Supplies IV 10/06/24 17:59 21 mls/hr DAILY@1800 [facility] Administration Meropenem 1 gm in 100 mls @ 33 mls/hr 10/07/23 20:30 10/08/23 07:00 Merrem IV 200 mls/hr Q8H [facility] Administration Ondansetron HCl 4 mg 10/06/23 19:16 Ondansetron 4 Mg/2 Ml Vial IV-PUSH 10/05/24 19:15 Q8H PRN Nausea And Vomiting Pantoprazole Sodium 40 mg 10/08/23 09:00 10/08/23 09:35 Pantoprazole 40 Mg Vial IV-PUSH 10/07/24 08:59 40 mg DAILY [facility] Administration Sodium Chloride 0 ml 10/06/23 17:02 10/07/23 20:43 Sodium Chloride 0.9 % 10 Ml Syringe IV-PUSH 10/05/24 17:01 10 ml PRN PRN Administration Flush Sodium Chloride 10 ml 10/07/23 13:48 10/08/23 09:35 Sodium Chloride 0.9 % 10 Ml Vial.Pf INJECTION 10/06/24 13:47 10 ml PRN PRN Administration Dilution Sodium Chloride 10 ml 10/07/23 13:48 10/08/23 07:01 Sodium Chloride 0.9 % 10 Ml Syringe IV-PUSH 10/06/24 13:47 10 ml PRN PRN Administration Flush A&P - Hospitalist Assessment/Plan (1) Skin infection at gastrostomy tube site: (2) Hypotension: (3) Hypokalemia: (4) On total parenteral nutrition (TPN): (5) Duodenal mass: Plan Abdominal wall cellulitis at gastrostomy tube site -ID consult recommendations appreciated -superficial site culture pending, blood cultures pending; CXR nonacute, UA noninfectious -Antibiotic therapy changed to just Merrem, improving leukocytosis 24>>15>>8, afebrile Hypotension, resolved -improved after IVF, trend Renal insufficiency, resolved -improved after IVF resuscitation, trend lab Hypokalemia, resolved -replete, trend labs. normal Mag Obstructive Duodenal mass -pending surgery 10/29/23 at [facility] -has been on TPN/ lipids- dietitian consult for ongoing nutrition management -G-tube for venting clear liquids at home patient reports not functioning. NPO except for small amounts ice chips and meds chronic conditions 1. BPH- finasteride 2. Chronic Anemia- no obvious bleeding, trend lab, negative FOBT 3. GERD- pantoprazole I personally saw this patient on the day of the encounter, reviewed the history,performed the ayala elements of the exam, formulated the plan of care and confirmed the Nurse Practitioner's assessment and plan. - Cali Patterson DO Documented By: Kalina Moore APRN 09/25 12/16 1223 Signed By: <Electronically signed by DEVAN Moore> 10/08/23 1608 <Electronically signed by Cali Patterson DO> 10/08/232046 [facility] Work Phone: 1(799) 359-966502-14-2024 Consult note Author Tyra Suarez [facility] October 08, 2023 10:53am Note Date/Time October 08, 2023 10:42am [facility] [address] [place] [address] Infect. Disease Consult Note Signed Patient: Aisha Julien MR#: [id number] : 1955 Acct:[id number] Age/Sex: 68 / M Adm Date: 4 Loc: Room: [address] [place] [address] Type: ADM IN Attending Dr: Cali Patterson DO Copies to: MD Tyra Velásquez MD Shawn J Warner, DO~ HPI Data of Consult Consult date: 10/08/23 Requesting Physician: Cali Patterson DO Primary Care Provider: Rene Cannon MD Consult Narrative History of present illness: Mr. Julien is a 68 year old male who presented to the hospital due to low blood pressure. Patient has a PEG tube for which he states acutely drained a significant amount of discolored fluid around its exit site for which was more than what it normally would drain. He also has a PICC line due to TPN need. Concern over purulent drainage around the G-tube site is the reason I am consulted. This was cultured and has a gram-negative hari so far growing to date. Empiric vancomycin and ceftriaxone were ordered. Today patient states his J-tube site does not bother him. Blood cultures are positive for Enterobacter type organism. Awaiting final ID. Because of this antibiotics were switched to meropenem. He continues on the vancomycin. He states he expects it to drain as it has drained in the past from time to time and he has to clean it up every 2 days on average. He does state what was seen on admission was abnormal given the amount that was coming out. Apparently he has an obstructive duodenal mass and is pending surgery beginning of October. The goal is to keep this PEG tube in through the surgery. CC: Cali Patterson DO [facility] Medical History (Updated 10/08/23 @ 10:51 by Tyra Suarez MD) Kidney failure Problem List clean-up per request of Phys. EHR Cmte GERD (gastroesophageal reflux disease) Problem List clean-up per request of Phys. EHR Cmte Pneumothorax on left following rib fracture Problem List clean-up per request of Phys. EHR Cmte Arthritis Problem List clean-up per request of Phys. EHR Cmte BPH (benign prostatic hyperplasia) Problem List clean-up per request of Phys. EHR Cmte Hypertension Problem List clean-up per request of Phys. EHR Cmte Surgical History History of tonsillectomy Problem List clean-up per request of Phys. EHR Cmte H/O: knee surgery scopes bilateral knee x 3 Problem List clean-up per request of Phys. EHR Cmte Family History Father Heart disease History of heart surgery Myocardial infarction Sister Liver cancer Father Family/Other Legacy FamHx Problem: 1 SISTER Mother Sister Cancer Legacy FamHx Problem: Diagnosed with Cancer Social History Smoking Status: Never smoker Substance Use Type: None Substance Abuse Comment: 6 to 10 beers daily Allergies and Medications Allergies and Active Meds Allergies No Known Allergies Allergy (Verified 10/06/23 23:05) Active Medications Acetaminophen (Acetaminophen 325 Mg Tablet) 650 mg PO Q6HR PRN PRN Reason: Pain Scale 1 - 3 or fever Stop: 10/05/24 19:15 Enoxaparin Sodium (Enoxaparin 40 Mg/0.4 Ml Syringe) 40 mg SUBCUT DAILY@10 [facility] Stop: 10/06/24 09:59 Last Admin: 10/08/23 09:35 Dose: 40 mg Finasteride (Finasteride 5 Mg Tablet) 5 mg PO QAM [facility] Stop: 10/07/24 08:59 Last Admin: 10/08/23 09:34 Dose: 5 mg Vancomycin HCl 1.25 gm/ (Dextrose) 275 mls @ 183.333 mls/hr IV Q24H [facility] Stop: 10/06/24 19:29 Last Admin: 10/07/23 20:43 Dose: 183.33 mls/hr Total Parenteral Nutrition 1 bag/ Potassium Acetate 20 meq/Potassium Phosphate 45 mmol/Sodium Chloride 75 meq/ Sodium Acetate 115 meq/ Calcium Gluconate 6 meq/Magnesium Sulfate 18 meq/ Multivitamins/Minerals 10 ml/ Zinc/Copper/Manganese/Selenium 1 ml/ Amino Acids 2,129.5867 mls @ 88.733 mls/hrIV DAILY@1800 [facility]; Protocol Stop: 10/06/24 17:59 Last Infusion: 10/07/23 20:30 Dose: 88.7 mls/hr Fat Emulsion Intravenous 250 (ml/ IV Miscellaneous Supplies) 250 mls @ 21 mls/hr IV DAILY@1800 [facility] Stop: 10/06/24 17:59 Last Admin: 10/07/23 18:12 Dose: 21 mls/hr Meropenem (Merrem) 1 gm in 100 mls @ 33 mls/hr IV Q8H [facility] Last Admin: 10/08/23 07:00 Dose: 200 mls/hr Ondansetron HCl (Ondansetron 4 Mg/2 Ml Vial) 4 mg IV-PUSH Q8H PRN PRN Reason: Nausea And Vomiting Stop: 10/05/24 19:15 Pantoprazole Sodium (Pantoprazole 40 Mg Vial) 40 mg IV-PUSH DAILY [facility] Stop: 10/07/24 08:59 Last Admin: 10/08/23 09:35 Dose: 40 mg Sodium Chloride (Sodium Chloride 0.9 % 10 Ml Syringe) 0 ml IV-PUSH PRN PRN PRN Reason: Flush Stop: 10/05/24 17:01 Last Admin: 10/07/23 20:43 Dose: 10 ml Sodium Chloride (Sodium Chloride 0.9 % 10 Ml Vial.Pf) 10 ml INJECTION PRN PRN PRN Reason: Dilution Stop: 10/06/24 13:47 Last Admin: 10/08/23 09:35 Dose: 10 ml Sodium Chloride (Sodium Chloride 0.9 % 10 Ml Syringe) 10 ml IV-PUSH PRN PRN PRN Reason: Flush Stop: 10/06/24 13:47 Last Admin: 10/08/23 07:01 Dose: 10 ml Vancomycin HCl (Vancomycin - Pharmacy Dosing 1 Each Miscell) 1 each IV ONCE PRN; Protocol PRN Reason: RK.Pharmacy Consult Exam Physical Exam Vital Signs: Temp Pulse Resp BP Pulse Ox O2 Del Method 97.4 F L 65 18 98/44 L 97 Room Air 10/08/23 08:00 10/08/23 08:00 10/08/23 08:00 10/08/23 08:00 10/08/23 08:00 10/08/23 08:00 Const General: cooperative, comfortable and no acute distress Nutritional Appearance: average body habitus Orientation: oriented x3 HEENT Head: normal to inspection Ears: hearing grossly normal bilaterally Face and sinus: normal facial exam Mouth: oral mucosae normal Eyes General: appearance normal, both eyes and all related structures Neck Neck: normal visual inspection Chest Chest palpation & inspection: normal inspection of the chest Resp Effort & Inspection: normal respiratory effort Cardio Palpation: normal PMI Rate: regular rate Rhythm: regular rhythm GI Inspection: abnormal to inspection and other (PEG exit site with drainage yellow/brown drainage; no odor. Non tender. ) Palpation: soft Other: No erythema of surrounding peg tube skin Skin General: no rashes or lesions noted Neuro General: patient oriented x3 Extrem General: abnormal to inspection (RUE PICC exit site ok) Results Labs 10/08/23 06:30 10/08/23 06:30 Labs: 02/14/24 06:30: Corrected WBC 8.3, Uncorrected WBC Count 8.3, BUN 20, Creatinine0.94 Microbiology Results Microbiology Narrative: 10/06/23 23:50 Superficial Wound Culture - Preliminary G-Tube Site Gram Negative Bacilli 10/06/23 18:07 Blood Culture - Preliminary Blood - Left Antecubital Enterobacterales Bacterial ID (NA Multiplex Assay) - Final 10/07/23 19:30 Stool Occult Blood (ELLY) - Final Stool 10/06/23 18:15 Blood Culture - Preliminary Blood - Left Hand No Growth 1 Day 10/06/23 17:49 SARS-CoV-2, Influenza & RSV (PCR) - Final Nasopharyngeal A&P - Infectious Disease (1) Gram-negative bacteremia: (2) Skin infection at gastrostomy tube site: (3) Leukocytosis: (4) Duodenal mass: Plan Patient initially covered with vancomycin and ceftriaxone but now on meropenem and vancomycin. Blood cultures with Enterobacter MAGI. PICC line potentially could be source but so could be the PEG tube site. Ultimately patient has a duodenal mass and is scheduled for surgery the beginning of October. The plan wasto maintain both the PICC line for TPN as well as the PEG tube until surgery could be done. Patient was systemically sick and got to the hospital but is feeling better. Concern with the positive blood culture brings the possibility of a PICC line infection to light. We will try to maintain the PICC line Diflucan. Follow-up blood cultures will be ordered. Patient states one of the blood cultures was taken from the PICC line but both lumbar sets mention left antecubital for left v hand. Therefore repeat blood cultures will be taken fromthe PICC line. Will discontinue vancomycin given the gram-negative's isolated so far. Maintain meropenem. Documented By: Tyra Suarez MD 10/08/23 1037 Signed By: <Electronically signed by MD Tyra Suarez> 10/08/23 [facility] [facility] Work Phone: 1(700) 648-651502-13-2024 Progress note Author Cali Patterson [facility] October 07, 2023 9:35pm Note Date/Time October 07, 2023 11:41am [facility] [address] [place] [address] Hospitalist Progress Note Signed Patient: Aisha Julien MR#: [id number] : 1955 Acct:[id number] Age/Sex: 68 / M Adm Date: 4 Loc: 3T Room: [address] [place] [address] Type: ADM IN Attending Dr: Cali Patterson DO Copies to: ~ Date of Service: 10/07/2023 Subjective Subjective Narrative: Patient seen and examined. He is resting comfortably. Indicates pain/ tenderness at the G-tube site improved from yesterday. On arrival he had copious drainage from the site, today still has some on surrounding dressing yellow in nature, no odor noted. Skin insertion site with erythema and mild warmth, no induration. Not able to express any drainage with palpation. Stateshe takes liquids at home but he uses G-tube to vent them with GI tract dissconnect. Currently undergoing workup and planned surgery of duodenal mass at [facility] October 28 Exam Physical Exam Vital Signs: Temp Pulse Resp BP Pulse Ox O2 Del Method 98.1 F 81 16 91/52 L 94 L Room Air 10/07/23 08:00 10/07/23 04:00 10/07/23 08:00 10/07/23 08:00 10/07/23 08:00 10/07/23 08:00 Narrative: CONST- alert, in bed, no distress at rest CARD- RRR no abnormal heart tones PULM- dimin without wheeze or rhonchi, RA ABD- S/NT, NABS, thin EXTREM- no edema BLE, calves nontender SKIN- abdominal with A-tah-dmvsrwxk with yellow drainage, erythema around insertion site without induration, no odor, unable to express drainage. Right arm PICC line Objective Lab Results 10/07/23 05:00 10/07/23 05:00 Microbiology Results Microbiology 10/06/23 17:49 Nasopharyngeal SARS-CoV-2, Influenza & RSV (PCR) - Final Meds Allergies and Active Meds Allergies No Known Allergies Allergy (Verified 10/06/23 23:05) Active Meds: Active Medications Generic Name Dose Route Start Last Admin Trade Name Freq PRN Reason Stop Dose Admin Acetaminophen 650 mg 10/06/23 19:16 Acetaminophen 325 Mg Tablet PO 10/05/24 19:15 Q6HR PRN Pain Scale 1 - 3 or fever Enoxaparin Sodium 40 mg 10/07/23 10:00 10/07/23 10:00 Enoxaparin 40 Mg/0.4 Ml Syringe SUBCUT 10/06/24 09:59 40 mg DAILY@10 NOMI Administration Ceftriaxone Sodium 2 gm in 50 mls @ 100 mls/hr 10/07/23 02:00 10/07/23 01:51 Rocephin IV 100 mls/hr Q24H NOMI Administration Vancomycin HCl 1.25 gm/ 275 mls @ 183.333 mls/hr 10/07/23 19:30 Dextrose IV 10/06/24 19:29 Q24H NOMI Ondansetron HCl 4 mg 10/06/23 19:16 Ondansetron 4 Mg/2 Ml Vial IV-PUSH 10/05/24 19:15 Q8H PRN Nausea And Vomiting Sodium Chloride 0 ml 10/06/23 17:02 10/07/23 05:32 Sodium Chloride 0.9 % 10 Ml Syringe IV-PUSH 10/05/24 17:01 10 ml PRN PRN Administration Flush Vancomycin HCl 1 each 10/06/23 21:52 Vancomycin - Pharmacy Dosing 1 Each Miscell IV ONCE PRN ZZ.Pharmacy Consult Protocol A&P - Hospitalist Assessment/Plan (1) Skin infection at gastrostomy tube site: (2) Hypotension: (3) Hypokalemia: (4) On total parenteral nutrition (TPN): (5) Duodenal mass: Plan Abdominal wall cellulitis at gastrostomy tube site -ID consult pending -superficial site culture pending, blood cultures pending; CXR nonacute, UA noninfectious -continue Vancomycin and Ceftriaxone, improving leukocytosis 24>>15, afebrile Hypotension -improved after IVF, trend Renal insufficiency -improved after IVF resuscitation, trend lab Hypokalemia -replete, trend labs. normal Mag Obstructive Duodenal mass -pending surgery 10/29/23 at [facility] -has been on TPN/ lipids- dietitian consult for ongoing nutrition management -G-tube for venting clear liquids at home patient reports not functioning. NPO except for small amounts ice chips and meds chronic conditions 1. BPH- finasteride 2. Chronic Anemia- no obvious bleeding, trend lab, check FOBT 3. GERD- pantoprazole I personally saw this patient on the day of the encounter, reviewed the history,performed the ayala elements of the exam, formulated the plan of care and confirmed the Nurse Practitioner's assessment and plan. - Cali Patterson DO Documented By: Kalina Moore APRN 09/25 11/15 1141 Signed By: <Electronically signed by DEVAN Moore> 10/07/23 1407 <Electronically signed by Cali Patterson DO> 10/07/23 [facility] [facility] Work Phone: [phone]) 376-949702-13-2024 History and physical note Author Cali Patterson [facility] October 06, 2023 10:09pm Note Date/Time October 06, 2023 10:02pm [facility] [address] [place] [address] Hospitalist H&P Signed Patient: Aisha Julien MR#: [id number] : 1955 Acct:[id number] Age/Sex: 68 / M Adm Date: 4 Loc: Room: [address] [place] [address] Type: ADM IN Attending Dr: Cali Patterson DO Copies to: MD Cali Velásquez, ~ HPI DATE OF EXAMINATION: 10/06/23 CHIEF COMPLAINT: dizzy HISTORY OF PRESENT ILLNESS: Mr Julien is a 68-year-old male who presented to the hospital today with a chiefcomplaint of low blood pressure at home. Patient states he felt dizzy and lightheaded last night which resolved on its own, this morning he checked his blood pressure and felt it was low, he reports it was 80 systolic and felt he was probably becoming dehydrated. The patient does have a history of a mass approximately 3 and half centimeters round in the third portion of the duodenum,he is currently being seen at [facility] for plans for what he described as chemotherapy or perhaps radioactive seeding to mitigate growth. In the meantimehe has appears had a PICC line placed for TPN and also a G-tube placed to bypassthe mass however the G-tube is not working. Patient states he has to open the G-tube once a day at least to vented the gas out however he does not use it for any food. He denies any tenderness around the G- tube site though there is some pus that is actively draining which patient states is not normal and just started. Review of Systems Review of Systems All other systems reviewed & are negative unless noted below or in HPI [facility] Medical History (Updated 10/06/23 @ 22:08 by Cali Patterson DO) Kidney failure Problem List clean-up per request of Phys. EHR Cmte GERD (gastroesophageal reflux disease) Problem List clean-up per request of Phys. EHR Cmte Pneumothorax on left following rib fracture Problem List clean-up per request of Phys. EHR Cmte Arthritis Problem List clean-up per request of Phys. EHR Cmte BPH (benign prostatic hyperplasia) Problem List clean-up per request of Phys. EHR Cmte Hypertension Problem List clean-up per request of Phys. EHR Cmte Surgical History History of tonsillectomy Problem List clean-up per request of Phys. EHR Cmte H/O: knee surgery scopes bilateral knee x 3 Problem List clean-up per request of Phys. [facility] Family History Father Heart disease History of heart surgery Myocardial infarction Sister Liver cancer Father Family/Other Legacy FamHx Problem: 1 SISTER Mother Sister Cancer Legacy FamHx Problem: Diagnosed with Cancer Social History Smoking Status: Never smoker Substance Use Type: Alcohol Substance Abuse Comment: 6 to 10 beers daily Meds Medications and Allergies Allergies No Known Allergies Allergy (Verified 10/06/23 13:34) Home Medications finasteride 5 mg tablet 5 mg PO QAM 01/15/23 [History Confirmed 10/06/23] pantoprazole 40 mg tablet,delayed release (Protonix) 40 mg PO DAILY #30 tabs 07/26/23 [Rx Confirmed 10/06/23] Exam Physical Exam Vital Signs: Temp Pulse Resp BP Pulse Ox O2 Del Method 98.2 F 69 17 83/48 L 96 Room Air 10/06/23 13:36 10/06/23 21:50 10/06/23 21:50 10/06/23 21:50 10/06/23 21:50 10/06/23 21:50 Narrative: General: Awake alert, no acute distress HEENT: head atraumatic, normocephalic, moist mucous membranes Neck: supple no masses, no lymphadenopathy CVS: regular rate and rhythm, no murmurs or gallops Respiratory: clear to auscultation bilaterally, no wheezing or crackles, symmetric expansion GI: soft, nondistended, nontender, positive bowel sounds with no organomegaly, G-tube site with new dressing, there is pus seeping through the new dressing Extremity: moves all extremities, no restrictions of movements, no calf tenderness, no edema Neuro: AOx3, CN II-VII intact. Moves all extremities in all planes of motion. Skin: dry, intact no rashes or lesions Results Lab Results Labs: Laboratory Last Values Corrected WBC 24.5 X10E3/uL (4.1-10.5) H 10/06/23 17:17 Uncorrected WBC Count 24.5 x10E3/uL (4.1-10.5) H 10/06/23 17:17 RBC 3.52 X10E6/uL (3.90-5.60) L 10/06/23 17:17 Hgb 10.2 g/dL (13.0-17.0) L 10/06/23 17:17 Hct 30.4 % (38.8-50.0) L 10/06/23 17:17 MCV 86.3 fl (83.5-101) 10/06/23 17:17 MCH 29.0 pg (27.5-35.2) 10/06/23 17:17 MCHC 33.6 g/dL (32.5-35.6) 10/06/23 17:17 RDW 13.9 % (12.0-14.8) 10/06/23 17:17 Plt Count 154 x10E3/uL (150-450) 10/06/23 17:17 MPV 10.2 fl (6.6-10.1) H 10/06/23 17:17 Neut % (Auto) N/A 10/06/23 17:17 Lymph % (Auto) N/A 10/06/23 17:17 Glenn % (Auto) N/A 10/06/23 17:17 Eos % (Auto) N/A 10/06/23 17:17 Baso % (Auto) N/A 10/06/23 17:17 Nucleat RBC Rel Count N/A 10/06/23 17:17 Neut # (Auto) N/A 10/06/23 17:17 Lymph # (Auto) N/A 10/06/23 17:17 Glenn # (Auto) N/A 10/06/23 17:17 Eos # (Auto) N/A 10/06/23 17:17 Baso # (Auto) N/A 10/06/23 17:17 Band Neutrophils % 14 % (0-5) H 10/06/23 17:17 Lymphocytes % 1 % (18-42) L 10/06/23 17:17 Monocytes % 9 % (2-11) 10/06/23 17:17 Segmented Neutrophils 76 % (50-70) H 10/06/23 17:17 Monocyte Dist Width 37.74 % (0.00-20.00) H 10/06/23 17:17 Platelet Estimate Normal (Normal) 10/06/23 17:17 Plt Morphology Comment Normal (Normal) 10/06/23 17:17 RBC Morphology N/A 10/06/23 17:17 Polychromasia Slight 10/06/23 17:17 Poikilocytosis Slight 10/06/23 17:17 Microcytosis Moderate 10/06/23 17:17 PT 13.9 Seconds (9.0-12.9) H 10/06/23 17:17 INR 1.2 10/06/23 17:17 APTT 31.8 Seconds (25.1-36.5) 10/06/23 17:17 PHA Creatinine Clear 51.23 10/06/23 13:54 Sodium 135 mmol/L (136-145) L 10/06/23 13:54 Potassium 3.1 mmol/L (3.5-5.1) L 10/06/23 13:54 Chloride 97 mmol/L (98-107) L 10/06/23 13:54 Carbon Dioxide 27.0 mmol/L (21.0-31.0) 10/06/23 13:54 Anion Gap 14.1 mEq/L (6.0-15.0) 10/06/23 13:54 BUN 34 mg/dL (7-25) H 10/06/23 13:54 Creatinine 1.38 mg/dL (0.70-1.30) H 10/06/23 13:54 Est GFR (CKD-EPI) 55.701 mL/Min 10/06/23 13:54 Glucose 116 mg/dL (70-100) H 10/06/23 13:54 Lactic Acid 1.5 mmol/L (0.5-2.2) 10/06/23 18:07 Calcium 7.8 mg/dL (8.6-10.3) L 10/06/23 13:54 Magnesium 2.0 mg/dL (1.9-2.7) 10/06/23 13:54 Total Bilirubin 0.9 mg/dl (0.3-1.0) 10/06/23 13:54 AST 23 U/L (13-39) 10/06/23 13:54 ALT 16 U/L (7-52) 10/06/23 13:54 Alkaline Phosphatase 139 U/L (34-104) H 10/06/23 13:54 Troponin I High Sens 19.4 pg/mL (0.0-20.0) 10/06/23 13:54 B-Natriuretic Peptide 436.0 pg/mL (5-100) H 10/06/23 17:17 Total Protein 6.0 gm/dL (6.4-8.9) L 10/06/23 13:54 Albumin 3.1 gm/dL (3.5-5.7) L 10/06/23 13:54 Globulin 2.9 gm/dL 10/06/23 13:54 Albumin/Globulin Ratio 1.1 10/06/23 13:54 Urine Color Dark yellow (Yellow) A 10/06/23 18:34 Urine Appearance Clear (Clear) 10/06/23 18:34 Urine pH 5.0 (5.0-9.0) 10/06/23 18:34 Ur Specific [place] 1.015 (1.001-1.030) 10/06/23 18:34 Urine Protein Negative mg/dL (Negative) 10/06/23 18:34 Urine Glucose (UA) Normal mg/dL (Normal) 10/06/23 18:34 Urine Ketones Negative (Negative) 10/06/23 18:34 Urine Occult Blood Negative (Negative) 10/06/23 18:34 Urine Nitrite Negative (Negative) 10/06/23 18:34 Urine Bilirubin 1+ (Negative) H 10/06/23 18:34 Urine Urobilinogen Normal mg/dL (Normal) 10/06/23 18:34 Ur Leukocyte Esterase Negative (Negative) 10/06/23 18:34 SARS-CoV-2 Rap RNA(RT-PCR) Negative (Negative) 10/06/23 17:49 Microbiology Results Micro: Microbiology - Results from entire visit 10/06/23 17:49 Nasopharyngeal SARS-CoV-2, Influenza & RSV (PCR) - Final Assessment & Plan Assessment/Plan (1) Skin infection at gastrostomy tube site: Plan: ? Patient received Zosyn and vancomycin in the ED for elevated white blood cell count and pus around the G-tube site ? Will de-escalate Zosyn to ceftriaxone and continue vancomycin ? Infectious disease consulted ? Blood cultures obtained in emergency room ? Follow morning CBC to trend white cell count ? He received 2 L normal saline in the emergency room to satisfy the 30 cc/kg fluid bolus per sepsis protocol ? Upon reassessment, the patient blood pressure improved, he is perfusing well ? Superficial culture from G-tube obtained once patient reached the floor (2) Leukocytosis: Plan: As above (3) Hypotension: Plan: Improved with fluid resuscitation (4) Hypokalemia: Plan: ? 3.1 emergency room, his magnesium is normal ? Replenish with 40 mill equivalents, trend morning BMP (5) Duodenal mass: Plan: ? Currently being worked up at [facility], stable (6) On total parenteral nutrition (TPN): Plan: ? Patient is currently TPN through a PICC line ? Did place communication order that is okay for the patient to use his own TPN,however if we have his premix available he will the hospital I will place the orders Plan ? DVT prophylaxis addressed ? N.p.o., TPN infusions ? Full code IP vs OBS Justification Based on differential dx, clinical care plan, and risk of adverse events, if untreated, in my clinical judgement this patient requires an acute care setting as: INPATIENT because of an expectation of an over 2 midnight stay. Estimated length of stay (# of days): 3 Documented By: Cali Patterson DO 10/06/232158 Signed By: <Electronically signed by Cali Patterson DO> 10/06/23 [facility] Work Phone: 1(764) 173-563502-12-2024 Miscellaneous Notes* Telephone Encounter - Jessie Zamora RN - 10/06/2023 12:03 PM EST Updated short term disability paperwork was updated and faxed on 10/06/23. Faxed to [facility] and to [facility]. documented in this encounterK[facility]02-09-2024 NoteHNO ID: [id number] Author: CLEVELAND ALBERTS MD Service: ? Author [...] Neuro: Gait normal. Reflexes (more content not included)...[facility]02-09-2024 History of Present illness Narrative* Cleveland Alberts MD - 10/03/2023 4:29 PM EST Established Patient Visit REASON FOR VISIT Follow [...] daily. He has gained some weight and deniesany abdominal symptoms. He presents today to review [...] volume. Abdomen is soft and non distended Pharmacy Operations Manager present: Yes () ASSESSMENT 68 year old [...] Level: 5 - High Cleveland Alberts MD [facility] October 02, 2023 documented in this encounterKettering Health02-07-2024 NoteHNO ID: [id number] Author: CLAUDE FAITH RT(R) Service: ? Author [...] BY: RT Norman(R) October 01, 2023 9:05 [facility]02-07-2024 NoteHNO ID: [id number] Author: MACY YOO RN Service: ? Author [...] Julien DATE: October 01, 2023 TIME: 8:30 [facility]01-12-2024 [facility]-04-2023 NoteBridgewater State HospitalOmdektwt11-13-4238 NoteBridgewater State HospitalHfxauwcn61-86-7234 Note HNO ID: [id number] Author: MARYAM MEJIA, LUCILLE Service: Care Management Author Type: Registered Nurse Type: Care Mgt Progress Note Filed: 09/02/2023 13:34 Note Text: cont. with TPN, optimize pt for OR planned FridayBridgewater State HospitalRfopcgsw55-81-3044 NoteBridgewater State HospitalFjhkoexn05-74-6530 NoteBridgewater State HospitalTvvlnfqw32-53-9616 NoteBridgewater State HospitalUdvcvcjm72-49-5976 NoteBridgewater State HospitalVxwvxabm99-26-5182 NoteHNO ID: [id number] Author: LAYNE CARR, LUCILLE Service: ? Author Type: Registered Nurse Type: Nursing Progress Note Filed: 08/29/2023 16:30 Note Text: 1630 paged SROC, is it ok to use picc if so we need an order.[facility] 08-29-2023 NoteBridgewater State HospitalMsqgdaso08-51-5620 NoteBridgewater State HospitalCtvrrzka45-96-3443 Note HNO ID: [id number] Author: CLEVELAND ALBERTS MD Service: ? Author [...] refill. Neuro: Gait deangelo (more content not included)...[facility] 08-28-2023 History of Past illness Narrative* Problem Noted Date Diagnosed Date Resolved Date Dehydration 08/28/2023 09/05/2023 documented as of this encounter (statuses as of 10/03/2023) [facility] History of Past illness Narrative* Problem Noted Date Diagnosed Date Resolved Date Dehydration 08/28/2023 09/05/2023 documented as of this encounter (statuses as of 10/06/2023) [facility]01-04-[facility] History of Past illness Narrative* Problem Noted Date Diagnosed Date Resolved Date Dehydration 08/28/2023 09/05/2023 documented as of this encounter (statuses as of 10/07/2023) [facility]01-02-2024 NoteHNO ID: [id number] Author: Andreas Ford, DO Service: ? Author Type: Fellow Type: Progress Notes Filed: 08/26/2023 12:36 PM Note Text: [facility] Multidisciplinary Vuoofo-Xxghftdki-Nlaluiq AND Upper GI Case Conference -- Consensus [...] if able Andreas Ford DO [facility] Surgical FellowOhiohealth Grant Medical Center12-24-2023 [facility] 08-17-2023 NoteHNO ID: [id number] Author: Margot Gonzalez RN Service: ? Author Type: Registered Nurse Type: Nursing Progress Note Filed: 08/17/2023 3:34 AM Note Text: 0030 New TF bag hung, TF advanced to 50 ml/hr no c/o gastric upset or nausea.[facility] HospitalHoihokoc71-46-8961 [facility]12-23-2023 [facility]12-22-2023 [facility]12-22-2023 [facility] 08-14-2023 [facility]12-21-2023 [facility]12-21-2023 Miscellaneous Notes* Telephone Encounter - Jessie Zamora RN - 08/14/2023 9:12 AM EST Kindra from [employer] [facility] returned call yesterday stating that she [...] 08/13/2023 10:24 AM EST Call made to [employer] [facility] - patient employer to get [place] paperwork for him. Left a VM with Kindra. Gave her cell number to call back and/or fax number to fax paperwork. documented in this encounterKettering Health12-20-2023 [facility] 08-13-2023 NoteBridgewater State HospitalAkzgcmqp67-62-0017 NoteBridgewater State HospitalRklngkft48-92-4163 Note [facility] HospitalJffdllcl82-76-4720 NoteBridgewater State HospitalDmytrvdp51-85-3723 NoteBridgewater State HospitalOwwxyhqa58-38-8147 NoteBridgewater State HospitalRqcxggkg30-14-2838 History and physical note* Cleveland Alberts MD [...] and symmetric. Sensation grossly intact. Abdomen: Negative Pharmacy Operations Manager present: Yes () ASSESSMENT 68-year-old male with [...] Level: 5 - High Cleveland Alberts MD [facility] August 07, 2023 documented in this encounterKettering Health12-13-2023 Miscellaneous Notes* Telephone Encounter - Pantera Rojas - 08/06/2023 9:07 AM EST Received records from [facility]. Scanned into [employer]. Please review, thank you! documented in this encounterKettering Health12-12-2023 Miscellaneous Notes* Telephone Encounter - Jessie Zamora RN - 08/05/2023 10:42 AM EST Called patient and spoke with him about coming for a visit with Dr. Alberts. Patient understands he was referred by Dr. Linder. Asked patient to bring any past medical history with him. Patient understanding and thankful for call and appointment. *Requested images to be pushed from [facility] 08/05. Also faxed release of information to patients PCP - Dr. Cannon in [facility]. documented in this encounterKettering Health12-05-2023 Miscellaneous Notes* Telephone Encounter - Vicki Rosario - 07/29/2023 3:36 PM EST New patient referral from Dr. Linder's office ([phone]) to Dr. Alberts for Duodenal Mass. Contacted the office to resend records. Please advise on scheduling documented in this encounterKettering Health12-02-2023 Progress note Author Jose A Calzada [facility] July 26, 2023 11:49am Note Date/Time July 26, 2023 1 1:49am [facility] [address] [place] [address] Nephrology Progress Note Signed Patient: Aisha Julien MR#: [id number] : 1955 Acct:[id number] Age/Sex: 68 / M Adm Date: 3 Loc: 3T Room: [address] [place] [address] Type: ADM IN Attending Dr: Gela Eller [...] 5 Mg Tablet) 5 mg PO QAM [facility] Stop: 07/24/24 08:59 Last Admin: 07/26/23 08:40 Dose: 5 mg Hydralazine HCl (Hydralazine 20 Mg/Ml Vial) 10 mg IV-PUSH Q4H PRN PRN Reason: if SBP > 185 Stop: 07/23/24 16:29 Hydromorphone HCl (Hydromorphone 1 Mg/Ml Syringe) 0.25 mg IV-PUSH Q4H PRN PRN Reason: pain Lactated Ringer's (Lactated Ringers) 1,000 mls @ 75 mls/hr IV .[id number] [facility] Stop: 07/24/24 13:14 Last Admin: 07/26/23 03:54 Dose: 75 mls/hr Sodium Chloride (0.9% Sodium Chloride 1,000 Ml) 1,000 mls @ 20 mls/hr IV .Q24H NOMI Stop: 07/24/24 13:59 Last Admin: 07/25/23 13:51 Dose: 20 mls/hr Pantoprazole Sodium (Pantoprazole 40 Mg Vial) 40 mg IV-PUSH BID [facility] Stop: 11/29/24 20:59 Last Admin: 07/26/23 08:40 Dose: 40 [...] losartan at homewhich likely contributing to prerenal NEEDINA etiology. UA is benign except 30 protein [...] by Jose A Calzada MD> 07/26/23 1149 [facility] Work Phone: 1(161) 456-283212-01-2023 Progress note Author Gela Eller [facility] July 25, 2023 12:59pm Note Date/Time July 25, 2023 1 2:59pm [facility] [address] [place] [address] Hospitalist Progress Note Signed Patient: Aisha Julien MR#: [id number] : 1955 Acct:[id number] Age/Sex: 68 / M Adm Date: 3 Loc: Room: [address] [place] [address] Type: ADM IN Attending Dr: Gela Eller [...] 0.4 Mg Cap.Er.24h PO 07/24/24 08:59 QAM [facility] A&P - Hospitalist Assessment/Plan (1) Duodenal mass: [...] <Electronically signed by Gela Eller MD> 07/25/23 5236 [facility] Work Phone: 1(505) 703-545712-01-2023 History and physical note Author Gela Eller [facility] July 25, 2023 12:57pm Note Date/Time July 24, 2023 4:18pm [facility] [address] [place] [address] Hospitalist H&P Signed Patient: Aisha Julien MR#: [id number] : 1955 Acct:[id number] Age/Sex: 68 / M Adm Date: 3 Loc: 3T Room: [address] [place] [address] Type: ADM IN Attending Dr: Gela Eller [...] any coronary artery disease. Ventriculogram showed ejection [id number]% Admission EKG showed normal sinus rhythm without [...] mass, portal vein/SMV thrombosis cannot be excluded. [facility] Medical History (Updated 07/25/23 @ 12:42 by [...] tablet,extended release 24 hr 50 mg PO M 11/29/21 [History Confirmed 07/24/23] tamsulosin 0.4 mg capsule 0.4 mg PO M 11/29/21 [History Confirmed 07/24/23] finasteride 5 mg tablet 5 mg PO [facility] 01/15/23 [History Confirmed 07/24/23] potassium gluconate 595 mg (99 mg) tablet 99 mg PO [facility] 01/15/23 [History Confirmed 07/24/23] diltiazem HCl 180 [...] % (Auto) 12.6 % (.) 07/24/23 12:28 Glenn % (Auto) 10.3 % (.) 07/24/23 12:28 Eos % (Auto) 1.0 % (.) 07/24/23 12:28 Baso % (Auto) 0.5 % (.) 07/24/23 12:28 Nucleat RBC Rel Count 0.2 /100 WBC (0-0.5) 07/24/23 12:28 Neut # (Auto) 5.5 x10E3/uL (1.8-7.7) 07/24/23 12:28 Lymph # (Auto) 0.9 x10E3/uL (1.00-4.8) L 07/24/23 12:28 Glenn # (Auto) 0.8 x10E3/uL (0.0-0.8) 07/24/23 12:28 [...] (3.5-5.7) 07/24/23 12:28 Globulin 3.5 gm/dL 07/24/23 12: Albumin/Globulin Ratio 1.2 07/24/23 12:28 Lipase 90.0 U/L (11.0-82.0) H 07/24/23 12:28 Urine Color Yellow (Yellow) 07/24/23 13:54 Urine Appearance Clear (Clear) 07/24/23 13:54 Urine pH 5.5 (5.0-9.0) 07/24/23 13:54 Ur Specific [place] 1.015 (1.001-1.030) 07/24/23 13:54 Urine Protein 30 [...] signed by Gela Eller MD> 07/25/23 1257 [facility] Work Phone: 1(529) 136-715012-01-2023 Consult note Author Jose A Calzada [facility] July 25, 2023 12:45pm Note Date/Time July 25, 2023 1 2:45pm [facility] [address] [place] [address] Nephrology Consult Note Signed Patient: Aisha Julien MR#: [id number] : 1955 Acct:[id number] Age/Sex: 68 / M Adm Date: 3 Loc: Room: [address] [place] [address] Type: ADM IN Attending Dr: Gela Eller MD Copies to: MD Rene rUena MD Ruta Semaskiene, MD~ Providers Consult Date: [...] 12 system review is negative this morning [facility] Medical History (Updated 07/25/23 @ 12:42 by [...] 5 Mg Tablet) 5 mg PO QAM [facility] Stop: 07/24/24 08:59 Hydralazine HCl (Hydralazine [...] Appearance Clear Urine pH 5.5 Ur Specific [place] 1.015 Urine Protein 30 H Urine Glucose (UA) Normal Urine Ketones Trace H Urine Occult Blood Negative Urine Nitrite Negative Ur Leukocyte Esterase Negative Urine RBC 5-9 H Urine WBC 0-1 Urine Bacteria None seen 07/25/23 05:46 BUN 44 H Creatinine 2.86 H D Albumin 3.4 L Urine Color Urine Appearance Urine pH Ur Specific [place] Urine Protein Urine Glucose (UA) Urine Ketones [...] Santa Jr., D.OAlma07/24/2023 2:43 PM Dictation Location: [place] [address] Any impression(s) listed above is documentation that [...] signed by Jose A Calzada MD> 07/25/23 1242 [facility] Work Phone: [phone] 721-780612-01-2023 [facility] Consult note Author Nohemy Linder [facility] July 24, 2023 4:38pm Note Date/Time July 24, 2023 4:35pm [facility] [address] [place] [address] Gastroenterology Consult Note Signed Patient: Aisha Julien MR#: [id number] : 1955 Acct:[id number] Age/Sex: 68 / M Adm Date: 3 Loc: Room: [address] [place] [address] Type: ADM IN Attending Dr: Gela Eller [...] negative unless noted below or in HPI [facility] Medical History (Updated 07/24/23 @ 16:37 by [...] finasteride 5 mg tablet 5 mg PO [facility] 01/15/23 [History Confirmed 07/24/23] potassium gluconate 595 mg (99 mg) tablet 99 mg PO [facility] 01/15/23 [History Confirmed 07/24/23] Exam Physical Exam [...] % (Auto) 75.6 Lymph % (Auto) 12.6 Glenn % (Auto) 10.3 Eos % (Auto) 1.0 Baso % (Auto) 0.5 Nucleat RBC Rel Count 0.2 Neut # (Auto) 5.5 Lymph # (Auto) 0.9 L Glenn # (Auto) 0.8 Eos # (Auto) 0.1 [...] Color Urine Appearance Urine pH Ur Specific [place] Urine Protein Urine Glucose (UA) Urine Ketones Urine Occult Blood Urine Nitrite Urine Bilirubin Urine Urobilinogen Ur Leukocyte Esterase Urine RBC Urine WBC Ur Squamous Epith Cells Urine Bacteria Hyaline Casts 07/24/23 07/24/23 07/24/23 12:28 12:28 13:54 Corrected WBC Uncorrected WBC Count RBC Hgb Hct MCV MCH MCHC RDW Plt Count MPV Neut % (Auto) Lymph % (Auto) Glenn % (Auto) Eos % (Auto) Baso % (Auto) Nucleat RBC Rel Count Neut # (Auto) Lymph # (Auto) Glenn # (Auto) Eos # (Auto) Baso # [...] Appearance Clear Urine pH 5.5 Ur Specific [place] 1.015 Urine Protein 30 H Urine Glucose [...] after midnight Documented By: Nohemy Linder MD 07/24/23 1633 Signed By: <Electronically signed by Nohemy Linder MD> 07/24/23 1638 [facility] Work Phone: [phone]) [phone] Evaluation note* Encounter Date Diagnosis Assessment Notes Treatment Notes Treatment Clinical Notes Feb, Visit for suture removal (ICD-10 - Z48.02) sutures removed successfully--see procedural note. wound healed up well. no questions or concerns. follow up with PCP prn. Feb, Laceration of nose, initial encounter (ICD-10 - S01.21XA) lac repair done in [facility] [employer] Other 05-26-2023 Discharge summary Author Joselito Madsen [facility] January 17, 2023 10:24am Note Date/Time January 17, 2023 10:22 am [facility] [address] [place] [address] Discharge Summary Signed Patient: Aisha Julien MR#: [id number] : 1955 Acct:[id number] Age/Sex: 67 / M Adm Date: 3 [...] 01/17/23 07:26 01/17/23 07:26 01/17/23 07:26 01/17/23 07:01/17/23 07:52 Discharge Plan Discharge Plan Patient Disposition: Home Diet: Low-Cholesterol Additional Instructions: DISCHARGE INSTRUCTIONS FOR CARDIAC BRANCH OPERATION EVALUATION MANAGER PHONE NUMBER OF YOUR PHYSICIAN: [phone] PROCEDURE: Heart Cath The following instructions have [...] cold, numb, blue or white, call the crm consultant immediately. 4. ACTIVITY: You are advised to [...] bottle, follow the instructions on the bottle. [facility] is not responsible for incorrect prescription [...] signed by Joselito Madsen DO> 01/17/23 1024 [facility] Work Phone: 1(883) 426-219905-26-2023 [facility]-2022 Evaluation note* Encounter Date Diagnosis Assessment Notes Treatment Notes Treatment Clinical Notes Oct, Abdominal pain (ICD-10 - R10.9) OB[facility] OBTAIN COLONOSCOPY AND CT SCAN[facility] [place] Oct, Gastritis without bleeding, unspecified chronicity, unspecified gastritis type (ICD-10 - K29.70) Oct, GERD (gastroesophageal reflux disease) (ICD-10 - K21.9) STOP FAMOTIDINE [employer] Other 03-16-2022 History of Present illness Narrative* Caity Hamilton RCP - 11/07/2021 12:30 PM EDT The patient was educated on the use of an event monitor. The patient's comprehension was high. The patient was able to verbalize recall. The patient was instructed on how and when to return the monitor. 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 RT Gómez Interpreting Estephania Pichardo Physician Referring Referring Physician RENE CANNON, Nurse VERNA* Practitioner [facility] * Procedure Type of Study: Cerebral: Carotid, [...] !Mid ICA !87.54 !27.97 (more content not included)...[facility] CPACSEvaluation note* Diagnosis Chest pain, unspecified type Syncope, unspecified syncope type documented in this encounter [employer] Phone: evaluation note* Diagnosis Bruit Other symptoms involving cardiovascular system documented in this encounter [employer] Phone: [email or web address] noteNo InformationNort [employer] Other Evaluation noteNo assessment information available [facility] Work Phone: Evaluation note* Diagnosis Onset Date Resolution Status Acute renal failure acute Epigastric pain acute Hypokalemia acute Hypotension acute Small bowel mass acute Unintentional weight loss [facility] Work Phone: Evaluation note* Diagnosis Onset Date Resolution Status Acute renal failure acute Duodenal mass acute Epigastric pain acute Hypokalemia acute Hypotension acute Small bowel mass acute Unintentional weight loss [facility] Work Phone: Evaluation note* Diagnosis Gastric outlet obstruction- Primary Acquired hypertrophic pyloric stenosis [facility] Diagnosis Gastric outlet obstruction- Primary 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) Encounter for attention to gastrostomy (HCC) Attention to gastrostomy Severe protein-calorie malnutrition (HCC) Other severe protein-calorie malnutrition [facility] Diagnosis Onset Date Resolution Status Hypokalemia acute Hypotension acute Leukocytosis acute On total parenteral nutrition (TPN) acute Skin infection at gastrostomy tube site [facility] Work Phone: Evaluation note* Diagnosis Onset Date Resolution Status Duodenal mass acute Duodenal mass acute Gram-negative bacteremia acu te Hypokalemia acute Hypotension acute Leukocytosis acute On total parenteral nutrition (TPN) acute Skin infection at gastrostomy tube site [facility] Work Phone: History and physical note Author Cali Patterson [facility] October 06, 2023 10:09pm Note Date/Time October 06, 2023 10:02pm [facility] [address] [place] [address] Hospitalist H&P Signed Patient: Aisha Julien MR#: [id number] : 1955 Acct:[id number] Age/Sex: 68 / M Adm Date: 4 Loc: Room: [address] [place] [address] Type: ADM IN Attending Dr: Cali Patterson DO Copies to: MD Cali Velásquez, ~ HPI DATE OF EXAMINATION: 10/06/23 CHIEF COMPLAINT: dizzy HISTORY OF PRESENT ILLNESS: Mr Julien is a 68-year-old male who presented to the hospital today with a chiefcomplaint of low blood pressure at home. Patient states he felt dizzy and lightheaded last night which resolved on its own, this morning he checked his blood pressure and felt it was low, he reports it was 80 systolic and felt he was probably becoming dehydrated. The patient does have a history of a mass approximately 3 and half centimeters round in the third portion of the duodenum,he is currently being seen at [facility] for plans for what he described as chemotherapy or perhaps radioactive seeding to mitigate growth. In the meantimehe has appears had a PICC line placed for TPN and also a G-tube placed to bypassthe mass however the G-tube is not working. Patient states he has to open the G-tube once a day at least to vented the gas out however he does not use it for any food. He denies any tenderness around the G- tube site though there is some pus that is actively draining which patient states is not normal and just started. Review of Systems Review of Systems All other systems reviewed & are negative unless noted below or in HPI [facility] Medical History (Updated 10/06/23 @ 22:08 by Cali Patterson DO) Kidney failure Problem List clean-up per request of Phys. [facility] GERD (gastroesophageal reflux disease) Problem List clean-up per request of Phys. EHR Cmte Pneumothorax on left following rib fracture Problem List clean-up per request of Phys. [facility] Arthritis Problem List clean-up per request of Phys. [facility] BPH (benign prostatic hyperplasia) Problem List clean-up per request of Phys. EHR Cmte Hypertension Problem List clean-up per request of Phys. [facility] Surgical History History of tonsillectomy Problem List clean-up per request of Phys. [facility] H/O: knee surgery scopes bilateral knee x 3 Problem List clean-up per request of Phys. [facility] Family History Father Heart disease History of heart surgery Myocardial infarction Sister Liver cancer Father Family/Other Legacy FamHx Problem: 1 SISTER Mother Sister Cancer Legacy FamHx Problem: Diagnosed with Cancer Social History Smoking Status: Never smoker Substance Use Type: Alcohol Substance Abuse Comment: 6 to 10 beers daily Meds Medications and Allergies Allergies No Known Allergies Allergy (Verified 10/06/23 13:34) Home Medications finasteride 5 mg tablet 5 mg PO QAM 01/15/23 [History Confirmed 10/06/23] pantoprazole 40 mg tablet,delayed release (Protonix) 40 mg PO DAILY #30 tabs 07/26/23 [Rx Confirmed 10/06/23] Exam Physical Exam Vital Signs: Temp Pulse Resp BP Pulse Ox O2 Del Method 98.2 F 69 17 83/48 L 96 Room Air 10/06/23 13:36 10/06/23 21:50 10/06/23 21:50 10/06/23 21:50 10/06/23 21:50 10/06/23 21:50 Narrative: General: Awake alert, no acute distress HEENT: head atraumatic, normocephalic, moist mucous membranes Neck: supple no masses, no lymphadenopathy CVS: regular rate and rhythm, no murmurs or gallops Respiratory: clear to auscultation bilaterally, no wheezing or crackles, symmetric expansion GI: soft, nondistended, nontender, positive bowel sounds with no organomegaly, G-tube site with new dressing, there is pus seeping through the new dressing Extremity: moves all extremities, no restrictions of movements, no calf tenderness, no edema Neuro: AOx3, CN II-VII intact. Moves all extremities in all planes of motion. Skin: dry, intact no rashes or lesions Results Lab Results Labs: Laboratory Last Values Corrected WBC 24.5 X10E3/uL (4.1-10.5) H 10/06/23 17:17 Uncorrected WBC Count 24.5 x10E3/uL (4.1-10.5) H 10/06/23 17:17 RBC 3.52 X10E6/uL (3.90-5.60) L 10/06/23 17:17 Hgb 10.2 g/dL (13.0-17.0) L 10/06/23 17:17 Hct 30.4 % (38.8-50.0) L 10/06/23 17:17 MCV 86.3 fl (83.5-101) 10/06/23 17:17 MCH 29.0 pg (27.5-35.2) 10/06/23 17:17 MCHC 33.6 g/dL (32.5-35.6) 10/06/23 17:17 RDW 13.9 % (12.0-14.8) 10/06/23 17:17 Plt Count 154 x10E3/uL (150-450) 10/06/23 17:17 MPV 10.2 fl (6.6-10.1) H 10/06/23 17:17 Neut % (Auto) N/A 10/06/23 17:17 Lymph % (Auto) N/A 10/06/23 17:17 Glenn % (Auto) N/A 10/06/23 17:17 Eos % (Auto) N/A 10/06/23 17:17 Baso % (Auto) N/A 10/06/23 17:17 Nucleat RBC Rel Count N/A 10/06/23 17:17 Neut # (Auto) N/A 10/06/23 17:17 Lymph # (Auto) N/A 10/06/23 17:17 Glenn # (Auto) N/A 10/06/23 17:17 Eos # (Auto) N/A 10/06/23 17:17 Baso # (Auto) N/A 10/06/23 17:17 Band Neutrophils % 14 % (0-5) H 10/06/23 17:17 Lymphocytes % 1 % (18-42) L 10/06/23 17:17 Monocytes % 9 % (2-11) 10/06/23 17:17 Segmented Neutrophils 76 % (50-70) H 10/06/23 17:17 Monocyte Dist Width 37.74 % (0.00-20.00) H 10/06/23 17:17 Platelet Estimate Normal (Normal) 10/06/23 17:17 Plt Morphology Comment Normal (Normal) 10/06/23 17:17 RBC Morphology N/A 10/06/23 17:17 Polychromasia Slight 10/06/23 17:17 Poikilocytosis Slight 10/06/23 17:17 Microcytosis Moderate 10/06/23 17:17 PT 13.9 Seconds (9.0-12.9) H 10/06/23 17:17 INR 1.2 10/06/23 17:17 APTT 31.8 Seconds (25.1-36.5) 10/06/23 17:17 PHA Creatinine Clear 51.23 10/06/23 13:54 Sodium 135 mmol/L (136-145) L 10/06/23 13:54 Potassium 3.1 mmol/L (3.5-5.1) L 10/06/23 13:54 Chloride 97 mmol/L (98-107) L 10/06/23 13:54 Carbon Dioxide 27.0 mmol/L (21.0-31.0) 10/06/23 13:54 Anion Gap 14.1 mEq/L (6.0-15.0) 10/06/23 13:54 BUN 34 mg/dL (7-25) H 10/06/23 13:54 Creatinine 1.38 mg/dL (0.70-1.30) H 10/06/23 13:54 Est GFR (CKD-EPI) 55.701 mL/Min 10/06/23 13:54 Glucose 116 mg/dL (70-100) H 10/06/23 13:54 Lactic Acid 1.5 mmol/L (0.5-2.2) 10/06/23 18:07 Calcium 7.8 mg/dL (8.6-10.3) L 10/06/23 13:54 Magnesium 2.0 mg/dL (1.9-2.7) 10/06/23 13:54 Total Bilirubin 0.9 mg/dl (0.3-1.0) 10/06/23 13:54 AST 23 U/L (13-39) 10/06/23 13:54 ALT 16 U/L (7-52) 10/06/23 13:54 Alkaline Phosphatase 139 U/L (34-104) H 10/06/23 13:54 Troponin I High Sens 19.4 pg/mL (0.0-20.0) 10/06/23 13:54 B-Natriuretic Peptide 436.0 pg/mL (5-100) H 10/06/23 17:17 Total Protein 6.0 gm/dL (6.4-8.9) L 10/06/23 13:54 Albumin 3.1 gm/dL (3.5-5.7) L 10/06/23 13:54 Globulin 2.9 gm/dL 10/06/23 13:54 Albumin/Globulin Ratio 1.1 10/06/23 13:54 Urine Color Dark yellow (Yellow) A 10/06/23 18:34 Urine Appearance Clear (Clear) 10/06/23 18:34 Urine pH 5.0 (5.0-9.0) 10/06/23 18:34 Ur Specific [place] 1.015 (1.001-1.030) 10/06/23 18:34 Urine Protein Negative mg/dL (Negative) 10/06/23 18:34 Urine Glucose (UA) Normal mg/dL (Normal) 10/06/23 18:34 Urine Ketones Negative (Negative) 10/06/23 18:34 Urine Occult Blood Negative (Negative) 10/06/23 18:34 Urine Nitrite Negative (Negative) 10/06/23 18:34 Urine Bilirubin 1+ (Negative) H 10/06/23 18:34 Urine Urobilinogen Normal mg/dL (Normal) 10/06/23 18:34 Ur Leukocyte Esterase Negative (Negative) 10/06/23 18:34 SARS-CoV-2 Rap RNA(RT-PCR) Negative (Negative) 10/06/23 17:49 Microbiology Results Micro: Microbiology - Results from entire visit 10/06/23 17:49 Nasopharyngeal SARS-CoV-2, Influenza & RSV (PCR) - Final Assessment & Plan Assessment/Plan (1) Skin infection at gastrostomy tube site: Plan: ? Patient received Zosyn and vancomycin in the ED for elevated white blood cell count and pus around the G-tube site ? Will de-escalate Zosyn to ceftriaxone and continue vancomycin ? Infectious disease consulted ? Blood cultures obtained in emergency room ? Follow morning CBC to trend white cell count ? He received 2 L normal saline in the emergency room to satisfy the 30 cc/kg fluid bolus per sepsis protocol ? Upon reassessment, the patient blood pressure improved, he is perfusing well ? Superficial culture from G-tube obtained once patient reached the floor (2) Leukocytosis: Plan: As above (3) Hypotension: Plan: Improved with fluid resuscitation (4) Hypokalemia: Plan: ? 3.1 emergency room, his magnesium is normal ? Replenish with 40 mill equivalents, trend morning BMP (5) Duodenal mass: Plan: ? Currently being worked up at [facility], stable (6) On total parenteral nutrition (TPN): Plan: ? Patient is currently TPN through a PICC line ? Did place communication order that is okay for the patient to use his own TPN,however if we have his premix available he will the hospital I will place the orders Plan ? DVT prophylaxis addressed ? N.p.o., TPN infusions ? Full code IP vs OBS Justification Based on differential dx, clinical care plan, and risk of adverse events, if untreated, in my clinical judgement this patient requires an acute care setting as: INPATIENT because of an expectation of an over 2 midnight stay. Estimated length of stay (# of days): 3 Documented By: Cali Patterson DO 10/06/232158 Signed By: <Electronically signed by Cali Patterson DO> 10/06/232208 [facility] Work Phone: Hisqzny general Narrative - Reported* Type Description Date Medical History HTN Medical History GERD Surgical History knee arthroscopy BILATEAL-3 RAMSES ES EACH [employer] Other History general Narrative - Reported* Type Description Date Medical History HTN Medical History GERD Surgical History knee arthroscopy BILATEAL-3 RAMSES ES EACH Hospitalization History DEHYDRATION [employer] Other Hospital Discharge instructions Additional Instructions DISCHARGE INSTRUCTIONS FOR CARDIAC BRANCH OPERATION EVALUATION MANAGER PHONE NUMBER OF YOUR PHYSICIAN: [phone] PROCEDURE: Heart Cath The following instructions have [...] cold, numb, blue or white, call the crm consultant immediately. 4. ACTIVITY: You are advised to [...] bottle, follow the instructions on the bottle. [facility] is not responsible for incorrect prescription information provided by the patient during their visit. Do not stop your medications without consulting your health care provider. Please take the list with you to your next doctor's appointment.[facility] Work Phone: Hospital Discharge instructions Additional Instructions You will need to follow-up with [facility] physician Dr. Bety Amin for further evaluation of your duodenal mass. Dr. Tadeo's office will arrange appointment and we will give you a [facility] Work Phone: Progress note Author Gela Eller [facility] July 26, 2023 2:50pm Note Date/Time July 26, 2023 2 :50pm [facility] [address] [place] [address] Hospitalist Progress Note Signed Patient: Aisha Julien MR#: [id number] : 1955 Acct:[id number] Age/Sex: 68 / M Adm Date: 3 Loc: 3T Room: [address] [place] [address] Type: ADM IN Attending Dr: Gela Eller [...] Lactated Ringers IV 07/24/24 13:14 75 mls/hr .[id number] NOMI Administration Sodium Chloride 1,000 mls @ [...] external mass effect/compression I did discuss with machining engineer, his office will arrange follow-up with gastroenterology [...] signed by Gela Eller MD> 07/26/23 1450 [facility] Work Phone: Summary Purpose Family History Relationship Condition Age at Onset Recorded Date/T [...] of heart murm ur: Sister(V17.49, Z82.49) Status:Active Relationship Condition Age at Onset Recorded Date/T jesus father Heart disease Unknown History of heart surgery Unknown Myocardial infarction Unknown sister Malignant neoplasm of liver Unknown father Unknown family member Unknown Not Specified Unknown sister Malignant neoplasm Unknown Advance Directives Advance Directive Response Recorded Date/ Time Advance Directives No June 04, 2021 10:29am Advance Directive Response Recorded Date/ Time Advance Directives No June 04, 2021 9:29am Reason for Referral Specialty Diagnoses / Procedures Referred By Erlin hernandez Referred To Contact Diagnoses Chest pain, unspecified type Syncope, unspecified syncope type Procedures Cardiac event monitor Douglas Gutierrez MD [address] [place] [address] Referral ID Status Reason Start Date Expiration Date Visits Re quested Visits Authorized [id number] Closed 10/25/2021 10/25/2022 1 1 Specialty Diagnoses / Procedures Referred By Erlin hernandez Referred To Contact Cardiology Diagnoses Chest pain, unspecified type Syncope, unspecified syncope type R07.9 (ICD-10-CM) - Chest pain, unspecified type Procedures Stress test, myoview CHG MYOCARDIAL SPECT MULTIPLE STUDIES [id number] - CHG MYOCARDIAL SPECT MULTIPLE STUDIES Douglas Gutierrez MD [address] [place] [address] [facility] [address] [place] [address] Referral ID Status Reason Start Date Expiration Date Visits Re quested Visits Authorized [id number] Closed 10/25/2021 10/25/2022 4 4 Specialty Diagnoses / Procedures Referred By Contac t Referred To Contact Vascular Lab Diagnoses Bruit R09.89 (ICD-10-CM) - Bruit Procedures VL DUP CAROTID BILATERAL PA DUPLEX SCAN EXTRACRANIAL,BILAT [id number] - PA DUPLEX SCAN EXTRACRANIAL,BILAT Douglas Gutierrez MD [address] [place] [address] Referral ID Status Reason Start Date Expiration Date V isits Requested Visits Authorized [id number] Pending Review 10/25/2021 10/25/2022 1 1 Chief [...] Unintentional weight loss Chief Complaint dizzy,abnormal labs low bp low bp Reason for Visit Hypokalemia Hypotension Leukocytosis On total parenteral nutrition (TPN) Skin infection at gastrostomy tube site Chief Complaint dizzy,abnormal labs low bp low bp low bp Reason for Visit Duodenal mass Duodenal mass Gram-negative bacteremia Hypokalemia Hypotension Leukocytosis On total parenteral nutrition (TPN) Skin infection at gastrostomy tube site Chief Complaint * AISHA JULIEN is being [...] Recommendations, follow-up on a as needed basis Health Concerns Infection Onset Date Last Indicated Resolved Time COVID-19 Rule-Out 08/28/2023 08/28/2023 08/28/2023 7:18 PM EST Additional Source Comments (unrecognized sect ion and content) No Status Records FoundNo Status Records FoundNo Status Records FoundNo Status Records FoundNo Status Records FoundNo Status Records FoundNo Status Records FoundNo Status Records FoundNo Status Records Found INFORMATION SOURCE (unrecogn ized section and content) DATE CREATED AUTHOR 10/17/2021 [facility] dical Specialist DATE CREATED AUTHOR AUTHOR'S ORGANIZ ATION 11/04/2021 [facility] DATE CREATED AUTHOR AUTHOR'S ORGANIZ ATION 12/15/2021 [facility] DATE CREATED AUTHOR AUTHOR'S ORGANIZ ATION 07/05/2022 [facility] DATE CREATED AUTHOR AUTHOR'S ORGANIZ ATION 02/03/2023 [facility] DATE CREATED AUTHOR AUTHOR'S ORGANIZ ATION 08/01/2023 [facility] Specialists EPIC DATE CREATED AUTHOR AUTHOR'S ORGANIZ ATION 09/08/2023 [facility] DATE CREATED AUTHOR AUTHOR'S ORGANIZ ATION 10/08/2023 [facility] DATE CREATED AUTHOR AUTHOR'S ORGANIZ ATION 10/09/2023 [facility] Reason for Visit (unrecogniz ed section and content) Specialty Diagnoses / Procedures Referred By Erlin t Referred To Contact Diagnoses Chest pain, unspecified type Syncope, unspecified syncope type Procedures Cardiac event monitor Douglas Gutierrez MD [address] [place] [address] Referral ID Status Reason Start Date Expiration Date Visits Re quested Visits Authorized [id number] Closed 10/25/2021 10/25/2022 1 1 Specialty Diagnoses / Procedures Referred By Erlin hernandez Referred To Contact Cardiology Diagnoses Chest pain, unspecified type Syncope, unspecified syncope type R07.9 (ICD-10-CM) - Chest pain, unspecified type Procedures Stress test, myoview CHG MYOCARDIAL SPECT MULTIPLE STUDIES [id number] - CHG MYOCARDIAL SPECT MULTIPLE STUDIES Douglas Gutierrez MD [address] [place] [address] [facility] [address] [place] [address] Referral ID Status Reason Start Date Expiration Date Visits Re quested Visits Authorized [id number] Closed 10/25/2021 10/25/2022 4 4 Specialty Diagnoses / Procedures Referred By Contac t Referred To Contact Vascular Lab Diagnoses Bruit R09.89 (ICD-10-CM) - Bruit Procedures VL DUP CAROTID BILATERAL PA DUPLEX SCAN EXTRACRANIAL,BILAT [id number] - PA DUPLEX SCAN EXTRACRANIAL,BILAT Douglas Gutierrez MD [address] [place] [address] Referral ID Status Reason Start Date Expiration Date V isits Requested Visits Authorized [id number] Pending Review 10/25/2021 10/25/2022 1 1 Reason Comments Appointment Reason Comments New Patient Evaluation Reason Comments FMLA Paperwork Reason Comments Follow Up Gastric outlet obstr uction Reason Comments Received Outside Medical Records Care Teams (unrecognized sec tion and content) Team Status: Active Member Role Status Dates Rene Cannon MD Primary Care Provider Active Team Status: Inactive Member Role Status Dates Rene Cannon MD Primary Care Provider Active Jean Paul Gutiérrez DO Emergency Provider Active Gela Eller MD Admit Provider, Attending Provide r Loraine Calzada MD Other Provider Active Nohemy Linder MD Other Provider Active Team Status: Active Member Role Status Dates Rene Cannon MD Primary Care Provider Active Jean Paul Gutiérrez DO Emergency Provider Active Gela Eller MD Admit Provider, Attending Provide r Active Jose A Calzada MD Other Provider Active Nohemy Linder MD Other Provider Active Medical Secretary Teacher Relationship Specialty Start Date End Date Rene Cannon MD [address] [place] [address] PCP - General 10/17/21 Medical Secretary Teacher Relationship Specialty Start Date End Date Rene Cannon MD [address] [address] PCP - General 10/17/21 Medical Secretary Teacher Relationship Specialty Start Date End Date Rene Cannon MD [address] [facility] [place] [address] PCP - General 10/17/21 Medical Secretary Teacher Relationship Specialty Start Date End Date Rene Cannon MD [address] [facility] [place] [address] PCP - General 10/17/21 Medical Secretary Teacher Relationship Specialty Start Date End Date Rene Cannon MD [address] [facility] [place] [address] PCP - General 10/17/21 Team Status: Inactive Member Role Status Dates Rene Cannon MD Primary Care Provider Active Joselito Madsen DO Attending Provider Active Medical Secretary Teacher Relationship Specialty Start Date End Date Rene Cannon MD [address] [place] [address] (Fax) PCP - General Family Medicine 08/05/23 Medical Secretary Teacher Relationship Specialty Start Date End Date Rene Cannon MD [address] [facility] [address] (Fax) PCP - General Family Medicine 08/05/23 Medical Secretary Teacher Relationship Specialty Start Date End Date Rene Cannon MD [address] [facility] [place] [address] (Fax) PCP - General Family Medicine 08/05/23 Medical Secretary Teacher Relationship Specialty Start Date End Date Reen Cannon MD [address] [facility] [address] (Fax) PCP - General Family Medicine 08/05/23 Medical Secretary Teacher Relationship Specialty Start Date End Date Hemeyer, Edward Lebron, MD [address] [place] [address] (Fax) PCP - [facility] 08/05/23 Medical Secretary Teacher Relationship Specialty Start Date End Date Rene Cannon MD [address] [place] [address] (Fax) PCP - [facility] 08/05/23 Team Status: Inactive Member Role Status Dates Rene Cannon MD Primary Care Provider Active Start: July 24, 2023 End: July 26, 2023 Jean Paul Gutiérrez DO Emergency Provider Active Sta rt: July 24, 2023 End: July 26, 2023 Gela Eller MD Admit Provider, Att ending Provider Active Start: July 24, 2023 End: July 26, 2023 Jose A Calzada MD Other Provider [facility] End: July 26, 2023 Nohemy Linder MD Other Provider Active Start: Jun End: July 26, 2023 Team Status: Active Member Role Status Dates Rene Cannon MD Primary Care Provider Active Start: October 06, 2023 Jean Paul Gutiérrez DO Emergency Provider Active Sta rt: October 06, 2023 Cali Patterson DO Admit Provider, Atte nding Provider Active Start: October 06, 2023 Team Status: Active Member Role Status Dates Rene Cannon MD Primary Care Provider Active Start: October 06, 2023 Jean Paul Gutiérrez DO Emergency Provider Active Sta rt: October 06, 2023 Cali Patterson DO Admit Provider, Atte nding Provider, Other Provider Active Start: October 06, 2023 Medical Secretary Teacher Relationship Specialty Start Date End Date Rene Cannon MD [address] [place] [address] (Fax) PCP - [facility] 08/05/23 Team Status: Inactive Member Role Status Dates Rene Cannon MD Primary Care Provider Active Start: October 06, 2023 End: October 10, 2023 Jean Paul Gutiérrez DO Emergency Provider Active Sta rt: October 06, 2023 End: October 10, 2023 Cali Patterson DO Admit Provider Active Start: October 06, 2023 End: October 10, 2023 Tyra Suarez MD Other Provider Active Start: October 06, 2023 End: October 10, 2023 Johnny Mendoza DO Attending Provider Active Start: October 06, 2023 End: October 10, 2023 Team Status: Active Member Role Status Dates Rene Cannon MD Primary Care Provider Active Start: October 08, 2023 Jean Paul Gutiérrez DO Emergency Provider Active Sta rt: October 08, 2023 Cali Patterson DO Admit Provider, Othe r Provider Active Start: October 08, 2023 Tyra Suarez MD Attending Provider, Other Provider Active Start: October 08, 2023 Source Comments (unrecognize d section and content) In the event this informatio n is protected by the Federal Confidentiality of Alcohol and Drug Abuse Patient Records regulations: The Federal rules restrict any use of the information to criminally investigate or prosecute any alcohol or drug abuse patient.[facility] Health[facility] the event this information is protected by the Federal Confidentiality of Alcohol and Drug Abuse Patient Records regulations: The Federal rules restrict any use of the information to criminally investigate or prosecute any alcohol or drug abuse patient.[facility] Health[facility] the event this information is protected by the Federal Confidentiality of Alcohol and Drug Abuse Patient Records regulations: The Federal rules restrict any use of the information to criminally investigate or prosecute any alcohol or drug abuse patient.[facility] the event this information is protected by the Federal Confidentiality of Alcohol and Drug Abuse Patient Records regulations: The Federal rules restrict any use of the information to criminally investigate or prosecute any alcohol or drug abuse patient.[facility] the event this information is protected by the Federal Confidentiality of Alcohol and Drug Abuse Patient Records regulations: The Federal rules restrict any use of the information to criminally investigate or prosecute any alcohol or drug abuse patient.[facility] Health[facility] the event this information is protected by the Federal Confidentiality of Alcohol and Drug Abuse Patient Records regulations: The Federal rules restrict any use of the information to criminally investigate or prosecute any alcohol or drug abuse patient.[facility] the event this information is protected by the Federal Confidentiality of Alcohol and Drug Abuse Patient Records regulations: The Federal rules restrict any use of the information to criminally investigate or prosecute any alcohol or drug abuse patient.[facility] Health[facility] the event this information is protected by the Federal Confidentiality of Alcohol and Drug Abuse Patient Records regulations: The Federal rules restrict any use of the information to criminally investigate or prosecute any alcohol or drug abuse patient.[facility] FOR RECORDS PERTAINING TO PATIENTS WHO ARE [...] BE BASED ON THE PRIMARY CLINICAL RECORDS. [employer] provides no warranty or guarantee of the accuracy or completeness of information in this document.
[2023-10-11 14:24] LABS: Basophils Percent Auto 0.4 % (0.2-2.0); Eosinophils Absolute Auto 0.3 10^3/uL (0.0-0.7); Eosinophils Percent Auto 2.6 % (0.9-7.0); Hematocrit 30.8 % (42.0-54.0); Hemoglobin 9.6 g/dL (14.0-18.0); Immature Granulocytes Abs Auto 0.34 10^3/uL (0.00-0.03); Immature Granulocytes Pct Auto 3.3 % (0.0-0.5); Lymphocytes Absolute Auto 1.5 10^3/uL (1.2-3.8); Lymphocytes Percent Auto 14.3 % (20.5-60.0); Mean Corpuscular HGB Conc 31.2 g/dL (29.9-35.2); Mean Corpuscular Hemoglobin 28.1 pg (25.9-34.0); Mean Corpuscular Volume 90.1 fL (80.0-94.0); Mean Platelet Volume 13.2 fL (9.5-13.5); Monocytes Absolute Auto 1.4 10^3/uL (0.3-0.8); Monocytes Percent Auto 13.4 % (1.7-12.0); Neutrophils Absolute Auto 6.8 10^3/uL (1.4-6.5); Platelet Count 159 10^3/uL (150-450); Red Blood Count 3.42 10^6/uL (4.70-6.10); Red Cell Distribution Width 14.3 % (11.0-15.0); White Blood Count 10.3 10^3/uL (4.0-11.0)
[2023-10-11 14:40] LABS: Alanine Aminotransferase 26 U/L (16-63); Albumin Globulin Ratio 0.7; Albumin Level 2.5 g/dL (3.4-5.0); Alkaline Phosphatase 217 U/L (46-116); Anion Gap 13.5; Aspartate Amino Transferase 28 U/L (15-37); BUN Creatinine Ratio 19.2; Bilirubin Total 0.5 mg/dL (0.2-1.0); Calcium 7.9 mg/dL (8.5-10.1); Carbon Dioxide 24.2 mmol/L (21.0-32.0); Chloride 108 mmol/L (98-107); Estimated GFR (African America >60 (>=60); Estimated GFR (Non-African Ame >60 (>=60); Globulin 3.4 g/dL; Glucose 81 mg/dL (74-106); Magnesium 2.1 mg/dL (1.8-2.4); Phosphorus 3.1 mg/dL (2.6-4.7); Potassium 3.7 mmol/L (3.5-5.1); Sodium 142 mmol/L (136-145); Total Protein 5.9 g/dL (6.4-8.2); Triglycerides 69 mg/dL (<=150)
== END 2023-10-11 13:41 | disposition home or self-care (01) ==
LOC: LAB 13:40
DX: Z79.899 Other long term (current) drug therapy (principal)
CPT/HCPCS: 36415; 80053; 83735; 84100; 84478; 85025

== ENCOUNTER 2023-10-20 11:59 | Outpatient (REF) | payer BC, SELFPAY ==
[2023-10-20 12:20] LABS: Basophils Percent Auto 0.9 % (0.2-2.0); Eosinophils Absolute Auto 0.2 10^3/uL (0.0-0.7); Eosinophils Percent Auto 3.9 % (0.9-7.0); Hematocrit 30.2 % (42.0-54.0); Hemoglobin 9.7 g/dL (14.0-18.0); Immature Granulocytes Abs Auto 0.01 10^3/uL (0.00-0.03); Immature Granulocytes Pct Auto 0.2 % (0.0-0.5); Lymphocytes Absolute Auto 1.1 10^3/uL (1.2-3.8); Lymphocytes Percent Auto 22.8 % (20.5-60.0); Mean Corpuscular HGB Conc 32.1 g/dL (29.9-35.2); Mean Corpuscular Hemoglobin 29.1 pg (25.9-34.0); Mean Corpuscular Volume 90.7 fL (80.0-94.0); Mean Platelet Volume 12.1 fL (9.5-13.5); Monocytes Absolute Auto 0.6 10^3/uL (0.3-0.8); Monocytes Percent Auto 13.5 % (1.7-12.0); Neutrophils Absolute Auto 2.7 10^3/uL (1.4-6.5); Neutrophils Percent Auto 58.7 % (43.0-75.0); Platelet Count 345 10^3/uL (150-450); Red Blood Count 3.33 10^6/uL (4.70-6.10); Red Cell Distribution Width 14.3 % (11.0-15.0); White Blood Count 4.6 10^3/uL (4.0-11.0)
[2023-10-20 12:27] LABS: Alanine Aminotransferase 26 U/L (16-63); Albumin Globulin Ratio 0.7; Albumin Level 2.7 g/dL (3.4-5.0); Alkaline Phosphatase 249 U/L (46-116); Aspartate Amino Transferase 24 U/L (15-37); BUN Creatinine Ratio 35.3; Bilirubin Total 0.5 mg/dL (0.2-1.0); Calcium 8.5 mg/dL (8.5-10.1); Carbon Dioxide 31.5 mmol/L (21.0-32.0); Chloride 102 mmol/L (98-107); Estimated GFR (African America >60 (>=60); Estimated GFR (Non-African Ame >60 (>=60); Globulin 3.9 g/dL; Glucose 90 mg/dL (74-106); Magnesium 2.2 mg/dL (1.8-2.4); Phosphorus 4.3 mg/dL (2.6-4.7); Potassium 4.5 mmol/L (3.5-5.1); Sodium 141 mmol/L (136-145); Total Protein 6.6 g/dL (6.4-8.2); Triglycerides 41 mg/dL (<=150)
== END 2023-10-20 12:00 | disposition home or self-care (01) ==
LOC: LAB 11:59
DX: Z79.899 Other long term (current) drug therapy (principal)
CPT/HCPCS: 36415; 80053; 83735; 84100; 84478; 85025

== ENCOUNTER 2023-10-27 12:18 | Outpatient (REF) | payer BC, SELFPAY ==
--- OUTSIDE RECORDS SUMMARY | 2023-10-27 12:27 | XMS_ITS | CCD ---
Author Name Unknown Address [address] [place] [address] Organization [facility] Care Team Providers Care Furnace Caretaker Name Role Phone DAVIS, DR IRELAND Admitting Unavailable HEMEYER, DR IRELAND Attending Unavailable HEMEYER, DR IRELAND Primary Care Unavailable HEMEYER, DR IRELAND Consulting Unavailable KATHRYN, DR DEBORAH Carl Consulting Unavailable DOUGLAS GUTIERREZ Admitting Unavailable KATHARINAESLAURYN, DOUGLAS Attending Unavailable DAVIS, DR IRELAND Primary Care Unavailable KATHRYN, DR DEBORAH Carl Consulting Unavailable DOUGLAS GUTIERREZ Consulting Unavailable DAVIS, DR IRELAND Admitting Unavailable HEMEIRLANDA, DR IRELAND Attending Unavailable HEMEYER, DR IRELAND [...] Unavailable VIGESAA, DOUGLAS S Referring Unavailable HEMERENE FOURNIER Primary Care Unavailable VIGESAA, DOUGLAS S Referring Unavailable RENE CANNON Primary Care Unavailable VIGESAA, DOUGLAS S Referring Unavailable RENE CANNON Primary Care Unavailable HEMERENE FOURNIER Primary Care Unavailable VIGESAA, DOUGLAS S Referring Unavailable Deborah Magallanes Unavailable INOCENCIO GUTIERREZ Attending Unavailab INOCENCIO Pavon Admitting Unavailab MD Rene Ramos Primary Care Provider [phone] DO Joselito Madsen Attending Provider Arnel Madsen Referring Unavailable Dr. Rene Cannon Primary Care Unava ilable Arnel Madsen Attending Unavailable Arnel Madsen Referring Unavailable Davis, Dr. Rene Diana Primary Care Unava ilable Arnel Madsen Attending Unavailable Rene Cannon Unavailable Unavailable Unavailable Chantal Castellanos Unavailable MD Rene Cannon Primary Care Provider [phone] DO Jean Paul Gutiérrez Emergency Provider MD Gela Eller Admit Provider MD Gela Eller Attending Provider MD Elsi Aziz Other Provider MD Niyah Imhilary Other Provider Unavailable Primary Care Provider Unavailsuki Cannon MD, Rene Diana Primary Care Provider Asahilary, Imad Unavailable BOLIVAR DEAL Consulting [facility]available [facility] Unavailab le NAFFOUJE, SAMER A Attending Unavailable NAFFOBHAVANA, SAMER A Admitting Unavailable NAFAMANDA, SAMER A Admitting Unavailable [facility] DIANA [facility] Unavailab le NAFFOUJE, SAMER A Attending Unavailable DO Cali Patterson Admit Provider DO Cali Patterson Attending Provider MD Tyra Suarez Other Provider DO Johnny Mendoza Attending Provider Joselito Madsen Attending Unavailable Rene Cannon Primary Care Unavailable Joselito Madsen Admitting Unavailable Rene Cannon Primary Care Unavailable Gela Eller Admitting Unavailable Gela Eller Attending Unavailable Jose A Calzada Consulting Unavailable Niyah, Imad Consulting Unavailable Tyra Suarez Consulting Unavailable Rene Cannon Primary Care Unavailable Cali Patterson Admitting Unavailable Johnny Mendoza Attending UnavailRene Dao Primary Care Unavailable Joselito Madsen Admitting Unavailable Joselito Madsen Attending Unavailable RENE CANNON [facility] Unavailab [facility] Unavailab le NAFFOUJE, SAMER A Referring Unavailable NAFFOBHAVANA, SAMER A Attending Unavailable RENE CANNON [facility] Unavailab le ASAAD, IMAD Referring Unavailable ARISTEO, SAMER A Attending Unavailable RENE CANNON [facility] Unavailab le OSMANY, TYRA Referring Unavailable RENE CANNON [facility] Unavailab le NAFFOUJE, SAMER A Referring Unavailable RENE CANNON [facility] Unavailab le NAFFOUJE, SAMER A Attending Unavailable RENE CANNON Attending Unavailable RENE CANNON Attending Unavailable RENE CANNON Attending RENE Rodriguez Attending Unavailable Medications Current Medications Medication Drug Class(es) Dates Sig (Normalized) Sig (Original) Calcium-Carb 600 + D 600-125 MG-UNIT (3 sources) take 1 tablet by seda th twice daily Calcium-Carb 600 + D 600-125 MG-UNIT 1 tablet Orally Twice a day Active Completed/Discontinued Medications Medication Drug Class(es) Dates Sig (Normalized) Sig (Original) amino acids 5% - electrolytes - calcium in D20W 5 % solp 2,000 mL (2 sources) amino acids 5% - electrolytes - calcium in D20W 5 % solp 2,000 mL Inject intravenously every 12 hours. IV 0 Active Comment on above: Inject intravenously every 12 hours. IV calcium carbonate 600 mg / cholecalciferol 125 [...] Start: 10-24-2021 take 1 capsule by mo uth once daily in the evening dicyclomine (BENTYL) [...] 12:00am July 26, 2023 12:25pm Start: 07-10-2023 End: 10-13-2023 dilTIAZem CD (CARDIZEM CD, C ARTIA XT) 180 mg 24 hr capsule Take 240 mg by mouth every morning. 0 07/10/2023 10/13/2023 Discontinued (Course of therapy completed) Start: 10-23-2021 End: 07-24-2023 take 240 mg by mouth once daily in the morning Diltiazem Hcl Discontinued 240 MG PO Every morning November 28, 2021 11:00pm July 24, 2023 5:37pm Comment on above: Take 240 mg by mouth every morning. ertapenem (3 sources) Penem Antibacterial Start: 10-09-19 inject 1 g intravenously every twenty-four hours ertapenem sodium (ERTAPENEM INJECTION) Ertapenem Active 1 GM IV Q24H October 09, 2023 12:00am 0 10/09/2023 Active Start: 10-09-2023 take 1 g intravenous ly every twenty-four hours Ertapenem Active 1 GM IV Q24H October 09, 2023 12:00am Comment on above: Ertapenem Active 1 G M IV Q24H October 09, 2023 12:00am famotidine 20 mg oral tablet (11 sources) Histamine-2 Receptor Antagonist Start: 10-23-2021 famotidine (PEPCID) 20 mg tablet Take by mouth every 24 hours. 0 10/23/2021 Active Start: 10-23-2021 take 1 tablet by sdea th once daily famotidine (PEPCID) 20 MG tablet Take 1 tablet by mouth nightly 90 tablet 1 10/23/2021 Active Comment on above: Take by mouth every 24 hours. finasteride 5 mg oral tablet (17 sources) 5-alpha Reductase Inhibitor Start: 05-25-2023 take [...] Angiotensin 2 Receptor Keshawn Start: 10-23-2021 End: 10-13-2023 take 1 tablet by mouth once daily in the morning losartan (COZAAR) 100 mg tablet Take 100 mg by mouth every morning. 0 07/10/2023 10/13/2023 Discontinued (Course of therapy completed) Comment on above: Take 100 mg by mouth every morning. 24 hr metoprolol succinate 100 mg extended release oral tablet (20 sources) beta-Adrenergic Keshawn Start: 07-10-2023 End: 10-13-2023 take 50 mg by mouth once metoprolol succinate ER (TOPROL XL) 100 mg Take 50 mg by mouth one time only. 0 07/10/2023 10/13/2023 Discontinued (Course of therapy completed) Start: 11-29-2021 End: 10-06-2023 take 50 mg [...] time only. ondansetron 4 mg oral tablet (6 sources) Serotonin-3 Receptor Antagonist Start: 3 End: 4 take 1 tablet by mouth every eight hours as needed for nausea ondansetron (ZOFRAN) 4 mg tablet TAKE 1 TABLET BY MOUTH EVERY 8 HOURS NEEDED FOR NAUSEA OR FOR VOMITING FOR UP TO 7 DAYS 0 07/10/2023 10/13/2023 Discontinued (Course of therapy completed) Comment on above: TAKE 1 TABLET BY SEDA TH EVERY 8 HOURS NEEDED FOR NAUSEA OR FOR VOMITING FOR UP TO 7 DAYS pantoprazole 40 mg delayed release oral tablet (12 sources) Proton Pump Inhibitor Start: take 1 tablet by mouth once pantoprazole [...] Enteral Access: PEG with Jejunal Extension Potassium (5 sources) End: 10-13-2023 potassium (POTASSIMIN ORAL) Take by mouth. 0 10/13/2023 Discontinued (Course of therapy completed) potassium (POTAS ELVER ORAL) Take by mouth. [...] 10-06-2023 take 0.4 mg by mouth once tamsulosin [...] kidney failure, unspecified] Onset: 3 07-24-2023 Episodic Alcohol-related disorders (3 sources) Alcoholism; Translations: [Alcohol dependence, uncomplicated] Onset: 3 10-13-2023 Chronic Bacterial infection; unspecified site (3 sources) Bacteremia caused by Gram-negative bacteria; Translations: [Bacteremia] Onset: 4 10-08-2023 Episodic Cardiac dysrhythmias (1 source) Tachycardia, unspecified; Translations: [Tachycardia] Onset: 3 Episodic Chronic kidney disease (3 sources) Chronic kidney disease stage 2; Translations: [Chronic kidney disease, stage 2 (mild)] Onset: 3 10-13-2023 Chronic Complications of surgical procedures or medical care (4 sources) Complication of gastrostomy; Translations: [Gastrostomy infection] 10-06-2023 Episodic Diseases of white blood cells (5 sources) Leukocytosis; Translations: [Elevated white blood cell count, unspecified] Onset: 4 10-06-2023 Chronic Epilepsy; convulsions (5 sources) Seizure; Translations: [Unspecified convulsions] Onset: 3 08-16-2023 Episodic Esophageal disorders (14 sources) Gastroesophageal reflux disease; Translations: [Gastro-esophageal reflux disease without esophagitis] Onset: 2 Resolved: 2 Chronic Essential hypertension (8 sources) Hypertensive disorder; Translations: [Unspecified essential hypertension] Onset: 3 08-08-2023 Chronic Fluid and electrolyte disorders (17 sources) Dehydration; Translations: [Hypokalemia] Onset: 2 Episodic Gastritis and duodenitis (6 sources) Gastritis; Translations: [Gastritis, unspecified, without bleeding] Onset: 2 Resolved: 2 Episodic Hyperplasia of prostate (3 sources) Benign prostatic hyperplasia; Translations: [Benign prostatic hyperplasia without lower urinary tract symptoms] 07-25-2023 Chronic Malaise and fatigue (7 sources) Other fatigue; Translations: [Weakness] Onset: 3 08-15-2023 Episodic Malignant neoplasm without specification of site (4 sources) Primary malignant neuroendocrine neoplasm of ileum; Translations: [Other malignant neuroendocrine tumors] Onset: 3 10-03-2023 Chronic Nonspecific chest pain (2 sources) Chest pain; Translations: [Chest pain, unspecified] Episodic Nutritional deficiencies (8 sources) Deficiency of macronutrients; Translations: [Unspecified severe protein-calorie malnutrition] Onset: 3 08-08-2023 Chronic Open wounds of head; neck; and trunk (1 source) Laceration without foreign body of nose, initial encounter Episodic Other aftercare (1 source) Encounter for removal of sutures Episodic Other aftercare (6 sources) Patient encounter status; Translations: [Encounter for [...] Episodic Other disorders of stomach and duodenum (7 sources) Pyloric obstruction; 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] Onset: 4 08-07-2023 Episodic Other disorders of stomach and duodenum (2 sources) Adult hypertrophic pyloric stenosis; Translations: [Gastric outlet obstruction] Onset: 4 Episodic Other gastrointestinal disorders (6 sources) Patient encounter status; Translations: [Encounter for [...] Episodic Other nutritional; endocrine; and metabolic disorders (7 sources) Adult failure to thrive syndrome; Translations: [Adult failure to thrive] Onset: 3 08-07-2023 Episodic Other nutritional; endocrine; and metabolic disorders (14 sources) Feeding problem; Translations: [Feeding difficulties] Onset: [...] subcutaneous tissue, unspecified] Onset: 4 Episodic Syncope (19 sources) Syncope and collapse; Translations: [Syncope] Onset: [...] Test Name Value Interpretation Reference Range Facility CBC W Auto Differential pane l (Bld)on 10-13-2023 Basophils (Bld) [#/Vol] 0.00 10*3/uL Normal <0.11 [facility] Comment on above: Order Comment: Speci men Type: BLOOD SPECIMENOrdering Facility: [facility] Address: [address] [place] [address] Performed By: #### 5 7021-8 ####[facility] LABCLIA [id number] [place] [address] [place] Basophils/100 WBC (Bld) 0.0 % Normal C [facility] Comment on above: Order Comment: Speci men Type: BLOOD SPECIMENOrdering Facility: [facility] Address: [address] [place] [address] Performed By: #### 5 7021-8 ####[facility] LABCLIA [id number] [place] [address] [place] Differential cell count method Nom (Bld) Manual Normal [facility] Comment on above: Order Comment: Speci men Type: BLOOD SPECIMENOrdering Facility: [facility] Address: [address] [place] [address] Performed By: #### 5 7021-8 ####[facility] LABCLIA [id number] [place] [address] [place] Eosinophils (Bld) [#/Vol] 0.13 10*3/uL Normal <0.46 [facility] Comment on above: Order Comment: Speci men Type: BLOOD SPECIMENOrdering Facility: [facility] Address: [address] [place] [address] Performed By: #### 5 7021-8 ####[facility] LABCLIA [id number] [place] [address] [place] Eosinophils/100 WBC (Bld) 1.8 % Normal [facility] Comment on above: Order Comment: Speci men Type: BLOOD SPECIMENOrdering Facility: [facility] Address: [address] [place] [address] Performed By: #### 5 7021-8 ####[facility] LABCLIA [id number] [place] [address] [place] Erythrocyte distribution width (RBC) [Ratio] 14.6 % Normal 11.5-15.0 [facility] Comment on above: Order Comment: Speci men Type: BLOOD SPECIMENOrdering Facility: [facility] Address: [address] [place] [address] Performed By: #### 5 7021-8 ####[facility] LABCLIA [id number] [place] [address] [place] Hematocrit (Bld) [Volume fraction] 33.6 % Low 39.0-51.0 [facility] Comment on above: Order Comment: Speci men Type: BLOOD SPECIMENOrdering Facility: [facility] Address: [address] [place] [address] Performed By: #### 5 7021-8 ####[facility] LABCLIA [id number] [place] [address] [place] Hemoglobin (Bld) [Mass/Vol] 10.7 g/dL Low 13.0-17.0 [facility] Comment on above: Order Comment: Speci men Type: BLOOD SPECIMENOrdering Facility: [facility] Address: [address] [place] [address] Performed By: #### 5 7021-8 ####[facility] LABIA [id number] [place] [address] [place] Lymphocytes (Bld) [#/Vol] 1.05 10*3/uL Normal 1.00-4.00 [facility] Comment on above: Order Comment: Speci men Type: BLOOD SPECIMENOrdering Facility: [facility] Address: [address] [place] [address] Performed By: #### 5 7021-8 ####[facility] LABCLIA [id number] [place] [address] [place] Lymphocytes/100 WBC (Bld) 14.0 % Normal [facility] Comment on above: Order Comment: Speci men Type: BLOOD SPECIMENOrdering Facility: [facility] Address: [address] [place] [address] Performed By: #### 5 7021-8 ####[facility] LABCLIA [id number] [place] [address] [place] MCH (RBC) [Entitic mass] 29.2 pg Normal 26.0-34.0 [facility] Comment on above: Order Comment: Speci men Type: BLOOD SPECIMENOrdering Facility: [facility] Address: [address] [place] [address] Performed By: #### 5 7021-8 ####[facility] LABCLIA [id number] [place] [address] [place] MCHC (RBC) [Mass/Vol] 31.8 g/dL Normal 30.5-36.0 [facility] Comment on above: Order Comment: Speci men Type: BLOOD SPECIMENOrdering Facility: [facility] Address: [address] [place] [address] Performed By: #### 5 7021-8 ####[facility] LABCLIA [id number] [place] [address] [place] MCV (RBC) [Entitic vol] 91.6 fL Normal 80.0-100.0 [facility] Comment on above: Order Comment: Speci men Type: BLOOD SPECIMENOrdering Facility: [facility] Address: [address] [place] [address] Performed By: #### 5 7021-8 ####[facility] LABIA [id number] [place] [address] [place] Monocytes (Bld) [#/Vol] 0.92 10*3/uL High <0.87 [facility] Comment on above: Order Comment: Speci men Type: BLOOD SPECIMENOrdering Facility: [facility] Address: [address] [place] [address] Performed By: #### 5 7021-8 ####[facility] LABIA [id number] [place] [address] [place] Monocytes/100 WBC (Bld) 12.3 % Normal C [facility] Comment on above: Order Comment: Speci men Type: BLOOD SPECIMENOrdering Facility: [facility] Address: [address] [place] [address] Performed By: #### 5 7021-8 ####[facility] LABIA [id number] [place] [address] [place] Neutrophils (Bld) [#/Vol] 5.37 10*3/uL Normal 1.45-7.50 [facility] Comment on above: Order Comment: Speci men Type: BLOOD SPECIMENOrdering Facility: [facility] Address: [address] [place] [address] Performed By: #### 5 7021-8 ####[facility] LABCLIA [id number] [place] [address] [place] Neutrophils/100 WBC (Bld) 71.9 % Normal [facility] Comment on above: Order Comment: Speci men Type: BLOOD SPECIMENOrdering Facility: [facility] Address: [address] [place] [address] Performed By: #### 5 7021-8 ####[facility] LABCLIA [id number] [place] [address] [place] Nucleated RBC (Bld) [#/Vol] 10*3/uL Normal <0.01 [facility] Comment on above: Order Comment: Speci men Type: BLOOD SPECIMENOrdering Facility: [facility] Address: [address] [place] [address] Performed By: #### 5 7021-8 ####[facility] LABCLIA [id number] [place] [address] [place] Nucleated RBC/100 WBC (Bld) [Ratio] 0.0 /100 WBC Normal [facility] Comment on above: Order Comment: Speci men Type: BLOOD SPECIMENOrdering Facility: [facility] Address: [address] [place] [address] Performed By: #### 5 7021-8 ####[facility] LABCLIA [id number] [place] [address] [place] Ovalocytes LM Ql (Bld) Few Normal [facility] Comment on above: Order Comment: Speci men Type: BLOOD SPECIMENOrdering Facility: [facility] Address: [address] [place] [address] Performed By: #### 5 7021-8 ####[facility] LABCLIA [id number] [place] [address] [place] Platelet mean volume (Bld) [Entitic vol] 13.0 fL High 9.0-12.7 [facility] Comment on above: Order Comment: Speci men Type: BLOOD SPECIMENOrdering Facility: [facility] Address: [address] [place] [address] Performed By: #### 5 7021-8 ####[facility] LABCLIA [id number] [place] [address] [place] Platelets (Bld) [#/Vol] 236 10*3/uL Normal 150-400 [facility] Comment on above: Order Comment: Speci men Type: BLOOD SPECIMENOrdering Facility: [facility] Address: [address] [place] [address] Performed By: #### 5 7021-8 ####[facility] LABIA [id number] [place] [address] [place] Platelets Estimate (Bld) [#/Vol] Adequate Normal [facility] Comment on above: Order Comment: Speci men Type: BLOOD SPECIMENOrdering Facility: [facility] Address: [address] [place] [address] Performed By: #### 5 7021-8 ####[facility] LABCLIA [id number] [place] [address] [place] Polychromasia LM Ql (Bld) Slight Normal [facility] Comment on above: Order Comment: Speci men Type: BLOOD SPECIMENOrdering Facility: [facility] Address: [address] [place] [address] Performed By: #### 5 7021-8 ####[facility] LABIA [id number] [place] [address] [place] RBC (Bld) [#/Vol] 3.67 10*6/uL Low 4.20-6.00 [facility] Comment on above: Order Comment: Speci men Type: BLOOD SPECIMENOrdering Facility: [facility] Address: [address] [place] [address] Performed By: #### 5 7021-8 ####[facility] LABCLIA [id number] [place] [address] [place] RED CELL MORPH Reviewed: see result s of individual morphologies Normal [facility] Comment on above: Order Comment: Speci men Type: BLOOD SPECIMENOrdering Facility: [facility] Address: [address] [place] [address] Performed By: #### 5 7021-8 ####[facility] LABIA [id number] [place] [address] [place] WBC (Bld) [#/Vol] 7.47 10*3/uL Normal 3.70-11.00 [facility] Comment on above: Order Comment: Speci men Type: BLOOD SPECIMENOrdering Facility: [facility] Address: [address] [place] [address] Performed By: #### 5 7021-8 ####[facility] LABCLIA [id number] [address] [place] [facility] -------- AISHA JULIEN ([id number]) 1955 Date Time Provider Department 10/13/23 TYRA CERON During your visit today, we recorded the following information about you: Tyra Ceron APRN.DEAF TEACHER 10/13/2023 12:01 PM Signed Aisha Mo, 1955, [id number], is scheduled for Procedure(s) (LRB): RESECTION SMALL INTESTINE AND ANASTOMOSIS LAPAROSCOPIC, ADDITIONAL PROCEDURE (N/A) on 10/29/2023 at [facility]. Update on Mr. Julien following discharge from [facility] for a blood infection (patient states E. Coli). States he has been prescribed Ertapenem, last dose scheduled for 10/26/23. [facility]where) Patient initially covered with vancomycin and ceftriaxone [...] the gram-negative's isolated so far. Maintain meropenem. Thank you, Tyra Ceron APRN.DEAF TEACHER Allergies As of Date: 10/13/2023 (No Known Allergies) Date Reviewed: 10/13/2023 Reviewed by: Tyra Ceron APRN.DEAF TEACHER - Fully Assessed Reason for Visit: Recent Hospitalization [Other] Prescriptions as of 10/13/2023 - famotidine (PEPCID) 20 mg tablet Take by mouth every 24 hours. - ertapenem sodium (ERTAPENEM INJECTION) Ertapenem Active 1 GM IV Q24H 14 October 09, 2023 12:00am - amino acids 5% - electrolytes - calcium in D20W 5 % solp 2,000 mL Inject intravenously every 12 hours. IV - tamsulosin (FLOMAX) 0.4 mg Take 0.4 mg by mouth one time only. - finasteride (PROSCAR) 5 mg tablet Take 5 mg by mouth every other day. - pantoprazole DR (PROTONIX) 40 mg tablet Take 1 tablet by mouth every afternoon. Problem List As Of Date 10/13/2023 Noted Resolved Failure to thrive in adult [...] Encounter for attention to gastrostomy (HCC) [Z*10/03/2023 Alcoholism (HCC) [F10.20] 01/28/2023 Hyperlipidemia [E78.5] 01/28/2023 10/13/2023 Metastatic malignant neuroendocrine tumor to ly*08/20/2023 Mild mitral regurgitation [I34.0] 01/28/2023 10/13/2023 Mild tricuspid regurgitation [I07.1] 01/28/2023 10/13/2023 Stage 2 chronic kidney disease [N18.2] 01/28/2023 GERD (gastroesophageal reflux disease) [K21.9] 10/13/2023 Encounter Status:Closed by TYRA CERON on 10/13/23 Normal [facility] HISTORY PHYSICALon HISTORY PHYSICAL HNO ID: [id number] Author: TYRA CERON APRN.DEAF TEACHER Service: ? Author Type: Nurse Practitioner Type: H&P Filed: 10/14/2023 05:15 Note Text: HISTORY AND PHYSICAL EXAMINATION SERVICE DATE: 10/13/2023 SERVICE TIME: 11:14 AM PRIMARY CARE PHYSICIAN: Rene Cannon MD, MD REASON FOR VISIT: Aisha Julien is a 68 year old male who is scheduled for Procedure(s) (LRB): RESECTION SMALL INTESTINE AND ANASTOMOSIS LAPAROSCOPIC, ADDITIONAL PROCEDURE (N/A) at the request of Dr. Cleveland Alberts for consultation. My final recommendation will be communicated back to the requesting physician by way of shared medical record or letter. 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 Patient denies any chest pain, shortness of breath, palpitations, fever/chills, nausea/vomiting, fatigue, or diarrhea. no pain at today's visit. Recommended for above surgery. PAST MEDICAL HISTORY Diagnosis Date Essential hypertension GERD (gastroesophageal reflux disease) PAST SURGICAL HISTORY Procedure Laterality Date ARTHROSCOPY KNEE DIAGNOSTIC W/WO SYNOVIAL BX SPX Bilateral states x3 COLONOSCOPY DIAGNOSTIC 2021 no polyps EGD DIAGNOSTIC 08/14/2023 PAST SURGICAL HISTORY OF 1965 tonsilectomy FAMILY HISTORY Problem Relation Age of Onset Uterine Cancer Mother other (bile duct cancer) Sister Colon Cancer No Family History SOCIAL HISTORY: Social History Tobacco Use Smoking status: Never Smokeless tobacco: Never Vaping Use Vaping Use: Former Substance Use Topics Alcohol use: Yes Comment: a few beers per day Drug use: Not Currently MEDICATIONS: Prior to Admission medications as of 10/13/23 1114 Medication Sig Last Dose Taking ertapenem sodium (ERTAPENEM INJECTION) Ertapenem Active 1 GM IV Q24H 14 October 09, 2023 12:00am Taking Yes amino acids 5% - electrolytes - calcium in D20W 5 % solp 2,000 mL Inject intravenously every 12 hours. IV Taking Yes tamsulosin (FLOMAX) 0.4 mg Take 0.4 mg by mouth one time only. Taking Yes finasteride (PROSCAR) 5 mg tablet Take 5 mg by mouth every other day. Taking Yes pantoprazole DR (PROTONIX) 40 mg tablet Take 1 tablet by mouth every afternoon. Taking Yes famotidine (PEPCID) 20 mg tablet Take by mouth every 24 hours. Patient not taking: Reported on 10/13/2023 Not Taking No medication comments found. CURRENT ALLERGIES: ALLERGIES No Known Allergies Covid Immunization Dates Overdue - Covid-19 Vaccine (1) Never done No completion, postpone, frequency change, or communication history exists for this topic. REVIEW OF SYSTEMS: PAIN ASSESSMENT: General: No weight loss, malaise or fevers. Neuro: No history of TIA's, stroke, CHIEF MARKETING OFFICER tumor, impaired sensorium, hemiplegia, paraplegia or quadraplegia. No neurological symptoms or problems. Respiratory: No history of current cough or dyspnea, or pneumonia in the past 6 weeks. No history of respiratory/pulmonary symptoms or problems. Cardiovascular: Positive for: HTN, Negative for CAD, Chest Pain, CHF, DVT/PE GI: Positive for GERD, gastrostomy, Negative for Abdominal pain, Difficulty swallowing : CKD 2 Endocrine: No history of diabetes. Has not taken steroids within the past 30 days. No history of endocrinological symptoms or problems. Hematology: No history of bleeding or clotting disorder. Pt is not taking anti-coagulation or platelet medications. No history of hematological symptoms or problems. Oncology: h/o metastatic neuroendocrine tumor Psych: Alcoholism Musculoskeletal: Negative for joint pain or swelling, back pain or muscle pain. Skin: Negative for lesions, rash and itching. Objective PHYSICAL EXAM: VITALS: BP 103/57 Pulse 77 Temp (Src) 98.5 (Temporal) Ht 5' 9.5 (1.77m) Wt 167 lb 1.7 oz (75.8kg) SpO2 100% BMI 24.33 kg/(m2). General: Alert and oriented, No acute distress Skin: Normal color, no rash, no lesions. HEENT: EOM, pupils equal, round and reactive. Cardiovascular: Normal S1 AND S2, no rubs, murmurs or gallops. No JVD. Pulse regular. Lungs: Normal breath sounds, no wheezes or crackles. Abdomen: Soft, non-tender, no rigidity. Extremities: No deformity, no edema or tenderness, no joint swelling or cl (more content not included)... Normal [facility] TYPE AND SCREEN,30 DAYon ABO A Normal [facility] Comment on above: Order Comment: Speci men Type: BLOOD SPECIMENOrdering Facility: [facility] Address: [address] [place] [address] Performed By: #### T SCR30 ####CC MAIN BLOOD BANKCLIA [id number] [place] [address] [place] HISTORICAL AB SCR STATUS Negative Normal [facility] Comment on above: Order Comment: Speci men Type: BLOOD SPECIMENOrdering Facility: [facility] Address: [address] [place] [address] Performed By: #### T SCR30 ####CC MAIN BLOOD BANKCLIA [id number] [place] [address] [place] Rh Nom (Bld) Positive Normal [facility] Comment on above: Order Comment: Speci men Type: BLOOD SPECIMENOrdering Facility: [facility] Address: [address] [place] [address] Performed By: #### T SCR30 ####CC MAIN BLOOD BANKCLIA [id number] [place] [address] [place] Anisocytosis LM Ql (Bld)Orde red By: Kalina Moore on 10-10-2023 Anisocytosis Ql (Bld) Moderate [facility] Basic Metabolic Panelon 09-25 Anion gap [Moles/Vol] 8.5 mmol/L Normal 6.0-15.0 [facility] Comment on above: Performed By: #### P TT, CMP, BNP, PT, DIFF CBC, MG, HS TROP, LACTIC #### [facility] [address] [place] [address] [place] Calcium [Mass/Vol] 7.7 mg/dL Low 8.6-10.3 [facility] Comment on above: Performed By: #### P TT, CMP, BNP, PT, DIFF CBC, MG, HS TROP, LACTIC #### [facility] [address] [place] [id number] [place] Chloride [Moles/Vol] 110 mmol/L High 98-107 [facility] Comment on above: Performed By: #### P TT, CMP, BNP, PT, DIFF CBC, MG, HS TROP, LACTIC #### [facility] [address] CO2 [Moles/Vol] 25.2 mmol/L Normal 21.0-31.0 [facility] Comment on above: Performed By: #### P TT, CMP, BNP, PT, DIFF CBC, MG, HS TROP, LACTIC #### [facility] [address] Creatinine [Mass/Vol] 0.69 mg/dL Low 0.70-1.30 [facility] Comment on above: Performed By: #### P TT, CMP, BNP, PT, DIFF CBC, MG, HS TROP, LACTIC #### [facility] [address] Creatinine Clr Calc Pharmacy 88.38 [facility] Comment on above: Performed By: #### P TT, CMP, BNP, PT, DIFF CBC, MG, HS TROP, LACTIC #### [facility] [address] [place] [address] [place] GFR/1.73 sq M.predicted MDRD (S/P/Bld) [Vol rate/Area] mL/min/{1.73_m2} [facility] Comment on above: Performed By: #### P TT, CMP, BNP, PT, DIFF CBC, MG, HS TROP, LACTIC #### [facility] [address] Glucose [Mass/Vol] 89 mg/dL Normal 70-100 [facility] Comment on above: Result Comment: Tiona Glucose Reference Range is dependent on time and content of last meal. Glucose of more than 200 mg/dL in a nonstressed, ambulatory subject supports the diagnosis of Diabetes Mellitus. ADA recommended reference range Performed By: #### P TT, CMP, BNP, PT, DIFF CBC, MG, HS TROP, LACTIC #### [facility] [address] Potassium [Moles/Vol] 3.7 mmol/L Normal 3.5-5.1 [facility] Comment on above: Performed By: #### P TT, CMP, BNP, PT, DIFF CBC, MG, HS TROP, LACTIC #### [facility] [address] Sodium [Moles/Vol] 140 mmol/L Normal 136-145 [facility] Comment on above: Performed By: #### P TT, CMP, BNP, PT, DIFF CBC, MG, HS TROP, LACTIC #### [facility] [address] Urea nitrogen [Mass/Vol] 12 mg/dL Normal 7-25 [facility] Comment on above: Performed By: #### P TT, CMP, BNP, PT, DIFF CBC, MG, HS TROP, LACTIC #### [facility] [address] Basophils Auto (Bld) [#/Vol] Ordered By: Kalina Moore on 10-10-2023 Basophils (Bld) [#/Vol] N/A F [facility] Basophils/100 WBC Auto (Bld) Ordered By: Kalina Moore on 10-10-2023 Basophils/100 WBC (Bld) N/A F [facility] Basophils/100 WBC Manual cnt (Bld)Ordered By: Kalina Moore on 10-10-2023 Basophils/100 WBC (Bld) 0 % 0-2 F [facility] Calcium [Mass/volume] in Ser um or PlasmaOrdered By: Kalina Moore on 10-10-2023 Calcium [Mass/Vol] 7.7 mg/dL 8.6-10.3 [facility] Carbon dioxide, total [Moles /volume] in Serum or PlasmaOrdered By: Kalina Moore on 10-10-2023 CO2 [Moles/Vol] 25.2 mmol/L 21.0-31.0 [facility] Chloride [Moles/volume] in S sadi or PlasmaOrdered By: Kalina Moore on 10-10-2023 Chloride [Moles/Vol] 110 mmol/L 98-107 [facility] Creatinine [Mass/volume] in Serum or PlasmaOrdered By: Kalina Moore on 10-10-2023 Creatinine [Mass/Vol] 0.69 mg/dL 0.70-1.30 [facility] Diff and CBCon 10-10-2023 Anisocytosis Ql (Bld) Moderate Normal [facility] Comment on above: Performed By: #### P TT, CMP, BNP, PT, DIFF CBC, MG, HS TROP, LACTIC #### [facility] [address] Basophils/100 WBC (Bld) 0 % Normal 0-2 [facility] Comment on above: Performed By: #### P TT, CMP, BNP, PT, DIFF CBC, MG, HS TROP, LACTIC #### [facility] [address] Eosinophils/100 WBC (Bld) 5 % High 1-3 [facility] Comment on above: Performed By: #### P TT, CMP, BNP, PT, DIFF CBC, MG, HS TROP, LACTIC #### [address] Erythrocyte distribution width (RBC) [Ratio] 15.5 % High 12.0-14.8 [facility] Comment on above: Performed By: #### P TT, CMP, BNP, PT, DIFF CBC, MG, HS TROP, LACTIC #### [address] Hematocrit (Bld) [Volume fraction] 28.9 % Low 38.8-50.0 [facility] Comment on above: Performed By: #### P TT, CMP, BNP, PT, DIFF CBC, MG, HS TROP, LACTIC #### [address] Hemoglobin (Bld) [Mass/Vol] 9.4 g/dL Low 13.0-17.0 [facility] Comment on above: Performed By: #### P TT, CMP, BNP, PT, DIFF CBC, MG, HS TROP, LACTIC #### [address] Lymphocytes/100 WBC (Bld) 5 % Low 18-42 [facility] Comment on above: Performed By: #### P TT, CMP, BNP, PT, DIFF CBC, MG, HS TROP, LACTIC #### [address] MCH (RBC) [Entitic mass] 29.8 pg Normal 27.5-35.2 [facility] Comment on above: Performed By: #### P TT, CMP, BNP, PT, DIFF CBC, MG, HS TROP, LACTIC #### [address] MCV (RBC) [Entitic vol] 91.5 fL Normal 83.5-101 F [facility] Comment on above: Performed By: #### P TT, CMP, BNP, PT, DIFF CBC, MG, HS TROP, LACTIC #### [address] Mean Corpuscular HGB Conc 32.6 g/dL Normal 32.5-35.6 [facility] Comment on above: Performed By: #### P TT, CMP, BNP, PT, DIFF CBC, MG, HS TROP, LACTIC #### [address] Metamyelocytes 1 % High 0-0 [facility] Comment on above: Performed By: #### P TT, CMP, BNP, PT, DIFF CBC, MG, HS TROP, LACTIC #### [address] Monocytes/100 WBC (Bld) 9 % Normal 2-11 F [facility] Comment on above: Performed By: #### P TT, CMP, BNP, PT, DIFF CBC, MG, HS TROP, LACTIC #### [address] Myelocytes 2 % High 0-0 [facility] Comment on above: Performed By: #### P TT, CMP, BNP, PT, DIFF CBC, MG, HS TROP, LACTIC #### [address] Ovalocytes Slight Normal [facility] Comment on above: Performed By: #### P TT, CMP, BNP, PT, DIFF CBC, MG, HS TROP, LACTIC #### [address] Platelet Estimate Decreased Normal Normal [facility] Comment on above: Performed By: #### P TT, CMP, BNP, PT, DIFF CBC, MG, HS TROP, LACTIC #### [address] Platelet mean volume (Bld) [Entitic vol] 11.1 fL High 6.6-10.1 [facility] Comment on above: Result Comment: PERF ORMED BY: [place] [address] PATHOLOGIST TELEMEDICINE PHYSICIAN RAHEL TREVINO M.D. Performed By: #### P TT, CMP, BNP, PT, DIFF CBC, MG, HS TROP, LACTIC #### [address] Platelet Morphology Normal Normal Normal [facility] Comment on above: Result Comment: PERF ORMED BY: [place] [address] PATHOLOGIST TELEMEDICINE PHYSICIAN RAHEL TREVINO M.D. Performed By: #### P TT, CMP, BNP, PT, DIFF CBC, MG, HS TROP, LACTIC #### [address] Platelets (Bld) [#/Vol] 104 10*3/uL Low 150-450 [facility] Comment on above: Performed By: #### P TT, CMP, BNP, PT, DIFF CBC, MG, HS TROP, LACTIC #### [address] RBC (Bld) [#/Vol] 3.16 10*6/uL Low 3.90-5.60 [facility] Comment on above: Performed By: #### P TT, CMP, BNP, PT, DIFF CBC, MG, HS TROP, LACTIC #### [address] Segmented neutrophils/100 WBC (Bld) 78 % High 50-70 [facility] Comment on above: Performed By: #### P TT, CMP, BNP, PT, DIFF CBC, MG, HS TROP, LACTIC #### [facility] [address] [place] [address] [place] WBC (Bld) [#/Vol] 6.3 10*3/uL Normal 4.1-10.5 [facility] Comment on above: Performed By: #### P TT, CMP, BNP, PT, DIFF CBC, MG, HS TROP, LACTIC #### [facility] [address] Eosinophils Auto (Bld) [#/Vo l]Ordered By: Kalina Moore on 10-10-2023 Eosinophils (Bld) [#/Vol] N/A [facility] Eosinophils/100 WBC Auto (Bl d)Ordered By: Kalina Moore on 10-10-2023 Eosinophils/100 WBC (Bld) N/A [facility] Eosinophils/100 WBC Manual c nt (Bld)Ordered By: Kalina Moore on 10-10-2023 Eosinophils/100 WBC (Bld) 5 % 1-3 [facility] Erythrocyte distribution wid th Auto (RBC) [Ratio]Ordered By: Kalina Valdez on 10-10-2023 Erythrocyte distribution width (RBC) [Ratio] 15.5 % 12.0-14.8 [facility] Glucose Glucometer (BldC) [M ass/Vol]Ordered By: Johnny Mendoza on 10-10-2023 Glucose [Mass/Vol] 96 mg/dL [facility] Comment on above: Random Glucose Refer ence Range is dependent on time and content of last meal. Glucose of more than 200 mg/dL in a nonstressed, ambulatory subject supports the diagnosis of Diabetes Mellitus. Glucose Poct Glucometerson 0 10-10-2023 Glucose [Mass/Vol] 96 mg/dL Normal [facility] Comment on above: Result Comment: Tiona Glucose Reference Range is dependent on time and content of last meal. Glucose of more than 200 mg/dL in a nonstressed, ambulatory subject supports the diagnosis of Diabetes Mellitus. PERFORMED BY: [place] [address] PATHOLOGIST TELEMEDICINE PHYSICIAN RAHEL TREVINO M.D. Performed By: #### P TT, CMP, BNP, PT, DIFF CBC, MG, HS TROP, LACTIC #### [address] Glucose [Mass/Vol] 130 mg/dL Normal [facility] Comment on above: Result Comment: Tiona om Glucose Reference Range is dependent on time and content of last meal. Glucose of more than 200 mg/dL in a nonstressed, ambulatory subject supports the diagnosis of Diabetes Mellitus. PERFORMED BY: [place] [address] PATHOLOGIST TELEMEDICINE PHYSICIAN RAHEL TREVINO M.D. Performed By: #### P TT, CMP, BNP, PT, DIFF CBC, MG, HS TROP, LACTIC #### [address] Glucose [Mass/Vol] 121 mg/dL Normal [facility] Comment on above: Result Comment: Tiona om Glucose Reference Range is dependent on time and content of last meal. Glucose of more than 200 mg/dL in a nonstressed, ambulatory subject supports the diagnosis of Diabetes Mellitus. PERFORMED BY: [place] [address] PATHOLOGIST TELEMEDICINE PHYSICIAN RAHEL TREVINO M.D. Performed By: #### P TT, CMP, BNP, PT, DIFF CBC, MG, HS TROP, LACTIC #### [place] [address] [place] Glucose [Mass/volume] in Ser um or PlasmaOrdered By: Kalina Moore on 10-10-2023 Glucose [Mass/Vol] 89 mg/dL 70-100 [facility] Comment on above: ADA recommended refe rence rangeRandom Glucose Reference Range is dependent on time and content of last meal. Glucose of more than 200 mg/dL in a nonstressed, ambulatory subject supports the diagnosis of Diabetes Mellitus. Hematocrit Auto (Bld) [Volum e fraction]Ordered By: Kalina Moore on 10-10-2023 Hematocrit (Bld) [Volume fraction] 28.9 % 38.8-50.0 [facility] Hemoglobin [Mass/volume] in BloodOrdered By: Kalina Moore on 10-10-2023 Hemoglobin (Bld) [Mass/Vol] 9.4 g/dL 13.0-17.0 [facility] Leukocytes [#/volume] correc johnnie for nucleated erythrocytes in Blood by Automated counOrdered By: Kalina Moore on 10-10-2023 WBC corrected for nucl RBC Auto (Bld) [#/Vol] 6.3 10*3/uL 4.1-10.5 [facility] Lymphocytes Auto (Bld) [#/Vo l]Ordered By: Kalina Moore on 10-10-2023 Lymphocytes (Bld) [#/Vol] N/A [facility] Lymphocytes/100 WBC Auto (Bl d)Ordered By: Kalina Moore on 10-10-2023 Lymphocytes/100 WBC (Bld) N/A [facility] Lymphocytes/100 WBC Manual c nt (Bld)Ordered By: Kalina Moore on 10-10-2023 Lymphocytes/100 WBC (Bld) 5 % 18-42 [facility] MCH Auto (RBC) [Entitic mass ]Ordered By: Kalina Moore on 10-10-2023 MCH (RBC) [Entitic mass] 29.8 pg 27.5-35.2 [facility] MCHC Auto (RBC) [Mass/Vol]Or dered By: Kalina Moore on 10-10-2023 MCHC (RBC) [Mass/Vol] 32.6 g/dL 32.5-35.6 [facility] MCV Auto (RBC) [Entitic vol] Ordered By: Kalina Moore on 10-10-2023 MCV (RBC) [Entitic vol] 91.5 fL 83.5-101 F [facility] Magnesiumon 10-10-2023 Magnesium [Mass/Vol] 2.1 mg/dL Normal 1.9-2.7 [facility] Comment on above: Result Comment: PERF ORMED BY: [address] [place] [address] PATHOLOGIST TELEMEDICINE PHYSICIAN RAHEL TREVINO M.D. Performed By: #### P TT, CMP, BNP, PT, DIFF CBC, MG, HS TROP, LACTIC #### [facility] [address] Magnesium [Mass/volume] in S sadi or PlasmaOrdered By: Kalina Moore on 10-10-2023 Magnesium [Mass/Vol] 2.1 mg/dL 1.9-2.7 [facility] Metamyelocytes/100 WBC Manua l cnt (Bld)Ordered By: Kalina Moore on 10-10-2023 Metamyelocytes/100 WBC (Bld) 1 % 0-0 [facility] Monocytes Auto (Bld) [#/Vol] Ordered By: Kalina Moore on 10-10-2023 Monocytes (Bld) [#/Vol] N/A F [facility] Monocytes/100 WBC Auto (Bld) Ordered By: Kalina Moore on 10-10-2023 Monocytes/100 WBC (Bld) N/A F [facility] Monocytes/100 WBC Manual cnt (Bld)Ordered By: Kalina Moore on 10-10-2023 Monocytes/100 WBC (Bld) 9 % 2-11 F [facility] Myelocytes/100 WBC Manual cn t (Bld)Ordered By: Kalina Moore on 10-10-2023 Myelocytes/100 WBC (Bld) 2 % 0-0 [facility] Neutrophils Auto (Bld) [#/Vo l]Ordered By: Kalina Moore on 10-10-2023 Neutrophils (Bld) [#/Vol] N/A [facility] Neutrophils/100 WBC Auto (Bl d)Ordered By: Kalina Moore on 10-10-2023 Neutrophils/100 WBC (Bld) N/A [facility] No Panel InformationOrdered By: Kalina Moore on 10-10-2023 Estimated GFR (CKD-EPI) > 60.0 mL/Min [facility] Creatinine Clearance (Chem 88.38 [facility] Nucleated erythrocytes [Pres ence] in Blood by Automated countOrdered By: Kalina Moore on 10-10-2023 Nucleated RBC Auto Ql (Bld) N/A [facility] Ovalocyte detectionOrdered B y: Kalina Moore on 10-10-2023 Ovalocytes LM Ql (Bld) [facility] Phosphate [Mass/volume] in S sadi or PlasmaOrdered By: Kalina Moore on 10-10-2023 Phosphate [Mass/Vol] 2.7 mg/dL 2.5-4.5 [facility] Phosphoruson 10-10-2023 Phosphate [Mass/Vol] 2.7 mg/dL Normal 2.5-4.5 [facility] Comment on above: Performed By: #### P TT, CMP, BNP, PT, DIFF CBC, MG, HS TROP, LACTIC #### [facility] [address] Platelet adequacy [Presence] in Blood by Light microscopyOrdered By: Kalina Moore on 10-10-2023 Platelets LM Ql (Bld) Decreased Normal [facility] Platelet mean volume Auto (B ld) [Entitic vol]Ordered By: Kalina Moore on 10-10-2023 Platelet mean volume (Bld) [Entitic vol] 11.1 fL 6.6-10.1 [facility] Platelet morphology finding [Identifier] in BloodOrdered By: Kalina Valdez on 10-10-2023 Platelet morphology finding Nom (Bld) Normal Normal [facility] Platelets Auto (Bld) [#/Vol] Ordered By: Kalina Moore on 10-10-2023 Platelets (Bld) [#/Vol] 104 10*3/uL 150-450 [facility] Potassium [Moles/volume] in Serum or PlasmaOrdered By: Kalina Moore on 10-10-2023 Potassium [Moles/Vol] 3.7 mmol/L 3.5-5.1 [facility] RBC Auto (Bld) [#/Vol]Ordere d By: Kalina Moore on 10-10-2023 RBC (Bld) [#/Vol] 3.16 10*6/uL 3.90-5.60 [facility] RBC morphologyOrdered By: Gladis Moore on 10-10-2023 RBC morphology finding Nom (Bld) N/A [facility] Segmented neutrophils/100 WB C Manual cnt (Bld)Ordered By: Kalina Moore on 10-10-2023 Segmented neutrophils/100 WBC (Bld) 78 % 50-70 [facility] Serum or plasma anion gap de terminationOrdered By: Kalina Moore on 10-10-2023 Anion gap [Moles/Vol] 8.5 mmol/L 6.0-15.0 [facility] Sodium [Moles/volume] in Ser um or PlasmaOrdered By: Kalina Moore on 10-10-2023 Sodium [Moles/Vol] 140 mmol/L 136-145 [facility] Urea nitrogen [Mass/volume] in Serum or PlasmaOrdered By: Kalina Moore on 10-10-2023 Urea nitrogen [Mass/Vol] 12 mg/dL 7-25 [facility] WBC Auto (Bld) [#/Vol]Ordere d By: Kalina Moore on 10-10-2023 WBC (Bld) [#/Vol] 6.3 10*3/uL 4.1-10.5 [facility] Basic Metabolic Panelon 09-25 Anion gap [Moles/Vol] 10.4 mmol/L Normal 6.0-15.0 [facility] Comment on above: Order Comment: Comme nt in am x3 then every Friday and Comment in am x3 then every Friday and Performed By: #### P TT, CMP, BNP, PT, DIFF CBC, MG, HS TROP, LACTIC #### [facility] [address] [place] [address] Calcium [Mass/Vol] 7.3 mg/dL Low 8.6-10.3 [facility] Comment on above: Order Comment: Comme nt in am x3 then every Friday and Comment in am x3 then every Friday and Performed By: #### P TT, CMP, BNP, PT, DIFF CBC, MG, HS TROP, LACTIC #### [facility] [address] Chloride [Moles/Vol] 108 mmol/L High 98-107 [facility] Comment on above: Order Comment: Comme nt in am x3 then every Friday and Comment in am x3 then every Friday and Performed By: #### P TT, CMP, BNP, PT, DIFF CBC, MG, HS TROP, LACTIC #### [facility] [address] CO2 [Moles/Vol] 23.2 mmol/L Normal 21.0-31.0 [facility] Comment on above: Order Comment: Comme nt in am x3 then every Friday and Comment in am x3 then every Friday and Performed By: #### P TT, CMP, BNP, PT, DIFF CBC, MG, HS TROP, LACTIC #### [facility] [address] Creatinine [Mass/Vol] 0.79 mg/dL Normal 0.70-1.30 [facility] Comment on above: Order Comment: Comme nt in am x3 then every Friday and Comment in am x3 then every Friday and Performed By: #### P TT, CMP, BNP, PT, DIFF CBC, MG, HS TROP, LACTIC #### [facility] [address] Creatinine Clr Calc Pharmacy 88.38 Normal [facility] Comment on above: Order Comment: Comme nt in am x3 then every Friday and Comment in am x3 then every Friday and Performed By: #### P TT, CMP, BNP, PT, DIFF CBC, MG, HS TROP, LACTIC #### [facility] [address] [place] [address] [place] GFR/1.73 sq M.predicted MDRD (S/P/Bld) [Vol rate/Area] mL/min/{1.73_m2} Normal [facility] Comment on above: Order Comment: Comme nt in am x3 then every Friday and Comment in am x3 then every Friday and Performed By: #### P TT, CMP, BNP, PT, DIFF CBC, MG, HS TROP, LACTIC #### [facility] [address] [place] [address] [place] Glucose [Mass/Vol] 124 mg/dL High 70-100 [facility] Comment on above: Order Comment: Comme nt in am x3 then every Friday and Comment in am x3 then every Friday and Result Comment: [facility] Glucose Reference Range is dependent on time and content of last meal. Glucose of more than 200 mg/dL in a nonstressed, ambulatory subject supports the diagnosis of Diabetes Mellitus. ADA recommended reference range Performed By: #### P TT, CMP, BNP, PT, DIFF CBC, MG, HS TROP, LACTIC #### [facility] [address] [place] [id number] [place] Potassium [Moles/Vol] 3.6 mmol/L Normal 3.5-5.1 [facility] Comment on above: Order Comment: Comme nt in am x3 then every Friday and Comment in am x3 then every Friday and Performed By: #### P TT, CMP, BNP, PT, DIFF CBC, MG, HS TROP, LACTIC #### [facility] [address] [place] [id number] [place] Sodium [Moles/Vol] 138 mmol/L Normal 136-145 [facility] Comment on above: Order Comment: Comme nt in am x3 then every Friday and Comment in am x3 then every Friday and Performed By: #### P TT, CMP, BNP, PT, DIFF CBC, MG, HS TROP, LACTIC #### [facility] [address] [place] [address] [place] Urea nitrogen [Mass/Vol] 13 mg/dL Normal 7-25 [facility] Comment on above: Order Comment: Comme nt in am x3 then every Friday and Comment in am x3 then every Friday and Performed By: #### P TT, CMP, BNP, PT, DIFF CBC, MG, HS TROP, LACTIC #### [address] Complete Blood Count Auto Di ffon 10-09-2023 Basophils (Bld) [#/Vol] 0.0 10*3/uL Normal 0.0-0.2 [facility] Comment on above: Result Comment: PERF ORMED BY: [place] [address] PATHOLOGIST TELEMEDICINE PHYSICIAN RAHEL TREVINO M.D. Performed By: #### P TT, CMP, BNP, PT, DIFF CBC, MG, HS TROP, LACTIC #### [address] Basophils/100 WBC (Bld) 0.2 % Normal . [facility] Comment on above: Performed By: #### P TT, CMP, BNP, PT, DIFF CBC, MG, HS TROP, LACTIC #### [address] Eosinophils (Bld) [#/Vol] 0.1 10*3/uL Normal 0.0-0.45 [facility] Comment on above: Performed By: #### P TT, CMP, BNP, PT, DIFF CBC, MG, HS TROP, LACTIC #### [address] Eosinophils/100 WBC (Bld) 1.0 % Normal . [facility] Comment on above: Performed By: #### P TT, CMP, BNP, PT, DIFF CBC, MG, HS TROP, LACTIC #### [address] Erythrocyte distribution width (RBC) [Ratio] 14.7 % Normal 12.0-14.8 [facility] Comment on above: Performed By: #### P TT, CMP, BNP, PT, DIFF CBC, MG, HS TROP, LACTIC #### [address] Hematocrit (Bld) [Volume fraction] 30.0 % Low 38.8-50.0 [facility] Comment on above: Performed By: #### P TT, CMP, BNP, PT, DIFF CBC, MG, HS TROP, LACTIC #### [address] Hemoglobin (Bld) [Mass/Vol] 10.1 g/dL Low 13.0-17.0 [facility] Comment on above: Performed By: #### P TT, CMP, BNP, PT, DIFF CBC, MG, HS TROP, LACTIC #### [address] Lymphocytes (Bld) [#/Vol] 0.5 10*3/uL Low 1.00-4.8 [facility] Comment on above: Performed By: #### P TT, CMP, BNP, PT, DIFF CBC, MG, HS TROP, LACTIC #### [address] Lymphocytes/100 WBC (Bld) 4.8 % Normal . [facility] Comment on above: Performed By: #### P TT, CMP, BNP, PT, DIFF CBC, MG, HS TROP, LACTIC #### [address] MCH (RBC) [Entitic mass] 29.5 pg Normal 27.5-35.2 [facility] Comment on above: Performed By: #### P TT, CMP, BNP, PT, DIFF CBC, MG, HS TROP, LACTIC #### [address] MCV (RBC) [Entitic vol] 87.4 fL Normal 83.5-101 F [facility] Comment on above: Performed By: #### P TT, CMP, BNP, PT, DIFF CBC, MG, HS TROP, LACTIC #### [address] Mean Corpuscular HGB Conc 33.7 g/dL Normal 32.5-35.6 [facility] Comment on above: Performed By: #### P TT, CMP, BNP, PT, DIFF CBC, MG, HS TROP, LACTIC #### [facility] [address] [place] [address] [place] Monocytes (Bld) [#/Vol] 0.9 10*3/uL High 0.0-0.8 [facility] Comment on above: Performed By: #### P TT, CMP, BNP, PT, DIFF CBC, MG, HS TROP, LACTIC #### [facility] [address] Monocytes/100 WBC (Bld) 8.5 % Normal . [facility] Comment on above: Performed By: #### P TT, CMP, BNP, PT, DIFF CBC, MG, HS TROP, LACTIC #### [address] Neutrophils (Bld) [#/Vol] 8.8 10*3/uL High 1.8-7.7 [facility] Comment on above: Performed By: #### P TT, CMP, BNP, PT, DIFF CBC, MG, HS TROP, LACTIC #### [address] Neutrophils/100 WBC (Bld) 85.5 % Normal . [facility] Comment on above: Performed By: #### P TT, CMP, BNP, PT, DIFF CBC, MG, HS TROP, LACTIC #### [address] NRBC% 0.1 /100{WBC} Normal 0-0.5 [facility] Comment on above: Performed By: #### P TT, CMP, BNP, PT, DIFF CBC, MG, HS TROP, LACTIC #### [address] Platelet mean volume (Bld) [Entitic vol] 11.3 fL High 6.6-10.1 [facility] Comment on above: Performed By: #### P TT, CMP, BNP, PT, DIFF CBC, MG, HS TROP, LACTIC #### [place] [address] [place] Platelets (Bld) [#/Vol] 99 10*3/uL Low 150-450 [facility] Comment on above: Performed By: #### P TT, CMP, BNP, PT, DIFF CBC, MG, HS TROP, LACTIC #### [facility] [address] RBC (Bld) [#/Vol] 3.44 10*6/uL Low 3.90-5.60 [facility] Comment on above: Performed By: #### P TT, CMP, BNP, PT, DIFF CBC, MG, HS TROP, LACTIC #### [facility] [address] WBC (Bld) [#/Vol] 10.3 10*3/uL Normal 4.1-10.5 [facility] Comment on above: Performed By: #### P TT, CMP, BNP, PT, DIFF CBC, MG, HS TROP, LACTIC #### [facility] [address] Glucose Poct Glucometerson 0 10-09-2023 Glucose [Mass/Vol] 107 mg/dL Normal [facility] Comment on above: Result Comment: [facility] Glucose Reference Range is dependent on time and content of last meal. Glucose of more than 200 mg/dL in a nonstressed, ambulatory subject supports the diagnosis of Diabetes Mellitus. PERFORMED BY: [place] [address] PATHOLOGIST TELEMEDICINE PHYSICIAN RAHEL TREVINO M.D. Performed By: #### P TT, CMP, BNP, PT, DIFF CBC, MG, HS TROP, LACTIC #### [facility] [address] Glucose [Mass/Vol] 113 mg/dL Normal [facility] Comment on above: Result Comment: [facility] Glucose Reference Range is dependent on time and content of last meal. Glucose of more than 200 mg/dL in a nonstressed, ambulatory subject supports the diagnosis of Diabetes Mellitus. PERFORMED BY: [place] [address] PATHOLOGIST TELEMEDICINE PHYSICIAN RAHEL TREVINO M.D. Performed By: #### P TT, CMP, BNP, PT, DIFF CBC, MG, HS TROP, LACTIC #### [address] Glucose [Mass/Vol] 121 mg/dL Normal [facility] Comment on above: Result Comment: [facility] Glucose Reference Range is dependent on time and content of last meal. Glucose of more than 200 mg/dL in a nonstressed, ambulatory subject supports the diagnosis of Diabetes Mellitus. PERFORMED BY: [place] [address] PATHOLOGIST TELEMEDICINE PHYSICIAN RAHEL TREVINO M.D. Performed By: #### P TT, CMP, BNP, PT, DIFF CBC, MG, HS TROP, LACTIC #### [address] Glucose [Mass/Vol] 124 mg/dL Normal [facility] Comment on above: Result Comment: [place] om Glucose Reference Range is dependent on time and content of last meal. Glucose of more than 200 mg/dL in a nonstressed, ambulatory subject supports the diagnosis of Diabetes Mellitus. PERFORMED BY: [place] [address] PATHOLOGIST TELEMEDICINE PHYSICIAN RAHEL TREVINO M.D. Performed By: #### P TT, CMP, BNP, PT, DIFF CBC, MG, HS TROP, LACTIC #### [address] Magnesiumon 10-09-2023 Magnesium [Mass/Vol] 2.1 mg/dL Normal 1.9-2.7 [facility] Comment on above: Order Comment: Comme nt in am x3 then every Friday and Comment in am x3 then every Friday and Result Comment: PERF ORMED BY: [place] [address] PATHOLOGIST TELEMEDICINE PHYSICIAN RAHEL TREVINO M.D. Performed By: #### P TT, CMP, BNP, PT, DIFF CBC, MG, HS TROP, LACTIC #### [address] [address] [facility] Phosphoruson 10-09-2023 Phosphate [Mass/Vol] 2.8 mg/dL Normal 2.5-4.5 [facility] Comment on above: Order Comment: Comme nt in am x3 then every Friday and Comment in am x3 then every Friday and Performed By: #### P TT, CMP, BNP, PT, DIFF CBC, MG, HS TROP, LACTIC #### [facility] [address] [place] [id number] [facility] Basic Metabolic Panelon 09-25 Anion gap [Moles/Vol] 10.7 mmol/L Normal 6.0-15.0 [facility] Comment on above: Order Comment: Comme nt in am x3 then every Friday and Comment in am x3 then every Friday and Comment in am then every Friday Performed By: #### P TT, CMP, BNP, PT, DIFF CBC, MG, HS TROP, LACTIC #### [facility] [address] [place] [id number] [facility] Calcium [Mass/Vol] 7.3 mg/dL Low 8.6-10.3 [facility] Comment on above: Order Comment: Comme nt in am x3 then every Friday and Comment in am x3 then every Friday and Comment in am then every Friday Performed By: #### P TT, CMP, BNP, PT, DIFF CBC, MG, HS TROP, LACTIC #### [facility] [address] [place] [id number] [facility] Chloride [Moles/Vol] 107 mmol/L Normal 98-107 [facility] Comment on above: Order Comment: Comme nt in am x3 then every Friday and Comment in am x3 then every Friday and Comment in am then every Friday Performed By: #### P TT, CMP, BNP, PT, DIFF CBC, MG, HS TROP, LACTIC #### [facility] [address] [place] [id number] [facility] CO2 [Moles/Vol] 22.2 mmol/L Normal 21.0-31.0 [facility] Comment on above: Order Comment: Comme nt in am x3 then every Friday and Comment in am x3 then every Friday and Comment in am then every Friday Performed By: #### P TT, CMP, BNP, PT, DIFF CBC, MG, HS TROP, LACTIC #### [facility] [address] [place] [address] [place] Creatinine [Mass/Vol] 0.94 mg/dL Normal 0.70-1.30 [facility] Comment on above: Order Comment: Comme nt in am x3 then every Friday and Comment in am x3 then every Friday and Comment in am then every Friday Performed By: #### P TT, CMP, BNP, PT, DIFF CBC, MG, HS TROP, LACTIC #### [facility] [address] [place] [address] [place] Creatinine Clr Calc Pharmacy 75.21 [facility] Comment on above: Order Comment: Comme nt in am x3 then every Friday and Comment in am x3 then every Friday and Comment in am then every Friday Performed By: #### P TT, CMP, BNP, PT, DIFF CBC, MG, HS TROP, LACTIC #### [facility] [address] [place] [address] [place] GFR/1.73 sq M.predicted MDRD (S/P/Bld) [Vol rate/Area] mL/min/{1.73_m2} [facility] Comment on above: Order Comment: Comme nt in am x3 then every Friday and Comment in am x3 then every Friday and Comment in am then every Friday Performed By: #### P TT, CMP, BNP, PT, DIFF CBC, MG, HS TROP, LACTIC #### [facility] [address] [place] [id number] [place] Glucose [Mass/Vol] 165 mg/dL High 70-100 [facility] Comment on above: Order Comment: Comme nt in am x3 then every Friday and Comment in am x3 then every Friday and Comment in am then every Mario Result Comment: [facility] Glucose Reference Range is dependent on time and content of last meal. Glucose of more than 200 mg/dL in a nonstressed, ambulatory subject supports the diagnosis of Diabetes Mellitus. ADA recommended reference range Performed By: #### P TT, CMP, BNP, PT, DIFF CBC, MG, HS TROP, LACTIC #### [address] Potassium [Moles/Vol] 3.9 mmol/L Normal 3.5-5.1 [facility] Comment on above: Order Comment: Comme nt in am x3 then every Friday and Comment in am x3 then every Friday and Comment in am then every Friday Performed By: #### P TT, CMP, BNP, PT, DIFF CBC, MG, HS TROP, LACTIC #### [address] Sodium [Moles/Vol] 136 mmol/L Normal 136-145 [facility] Comment on above: Order Comment: Comme nt in am x3 then every Friday and Comment in am x3 then every Friday and Comment in am then every Friday Performed By: #### P TT, CMP, BNP, PT, DIFF CBC, MG, HS TROP, LACTIC #### [address] Urea nitrogen [Mass/Vol] 20 mg/dL Normal 7-25 [facility] Comment on above: Order Comment: Comme nt in am x3 then every Friday and Comment in am x3 then every Friday and Comment in am then every Friday Performed By: #### P TT, CMP, BNP, PT, DIFF CBC, MG, HS TROP, LACTIC #### [address] Blood Cultureon 10-08-2023 Bacteria identified Cx Nom (Bld) NO GROWTH 5 DAYS PERFORMED BY: [place] [address] PATHOLOGIST TELEMEDICINE PHYSICIAN RAHEL TREVINO M.D. [facility] Comment on above: Performed By: #### P TT, CMP, BNP, PT, DIFF CBC, MG, HS TROP, LACTIC #### [address] Bacteria identified Cx Nom (Bld) NO GROWTH 5 DAYS PERFORMED BY: [place] [address] PATHOLOGIST TELEMEDICINE PHYSICIAN RAHEL TREVINO M.D. [facility] Comment on above: Performed By: #### P TT, CMP, BNP, PT, DIFF CBC, MG, HS TROP, LACTIC #### [address] Complete Blood Count Auto Di ffon 10-08-2023 Basophils (Bld) [#/Vol] 0.1 10*3/uL Normal 0.0-0.2 [facility] Comment on above: Result Comment: PERF ORMED BY: [place] [address] PATHOLOGIST TELEMEDICINE PHYSICIAN RAHEL TREVINO M.D. Performed By: #### P TT, CMP, BNP, PT, DIFF CBC, MG, HS TROP, LACTIC #### [address] Basophils/100 WBC (Bld) 0.6 % Normal . [facility] Comment on above: Performed By: #### P TT, CMP, BNP, PT, DIFF CBC, MG, HS TROP, LACTIC #### [address] Eosinophils (Bld) [#/Vol] 0.2 10*3/uL Normal 0.0-0.45 [facility] Comment on above: Performed By: #### P TT, CMP, BNP, PT, DIFF CBC, MG, HS TROP, LACTIC #### [address] Eosinophils/100 WBC (Bld) 2.2 % Normal . [facility] Comment on above: Performed By: #### P TT, CMP, BNP, PT, DIFF CBC, MG, HS TROP, LACTIC #### [address] Erythrocyte distribution width (RBC) [Ratio] 14.6 % Normal 12.0-14.8 [facility] Comment on above: Performed By: #### P TT, CMP, BNP, PT, DIFF CBC, MG, HS TROP, LACTIC #### [facility] [address] Hematocrit (Bld) [Volume fraction] 30.0 % Low 38.8-50.0 [facility] Comment on above: Performed By: #### P TT, CMP, BNP, PT, DIFF CBC, MG, HS TROP, LACTIC #### [address] Hemoglobin (Bld) [Mass/Vol] 10.3 g/dL Low 13.0-17.0 [facility] Comment on above: Performed By: #### P TT, CMP, BNP, PT, DIFF CBC, MG, HS TROP, LACTIC #### [address] Lymphocytes (Bld) [#/Vol] 0.5 10*3/uL Low 1.00-4.8 [facility] Comment on above: Performed By: #### P TT, CMP, BNP, PT, DIFF CBC, MG, HS TROP, LACTIC #### [address] Lymphocytes/100 WBC (Bld) 5.5 % Normal . [facility] Comment on above: Performed By: #### P TT, CMP, BNP, PT, DIFF CBC, MG, HS TROP, LACTIC #### [address] MCH (RBC) [Entitic mass] 29.6 pg Normal 27.5-35.2 [facility] Comment on above: Performed By: #### P TT, CMP, BNP, PT, DIFF CBC, MG, HS TROP, LACTIC #### [address] MCV (RBC) [Entitic vol] 86.4 fL Normal 83.5-101 F [facility] Comment on above: Performed By: #### P TT, CMP, BNP, PT, DIFF CBC, MG, HS TROP, LACTIC #### [address] Mean Corpuscular HGB Conc 34.3 g/dL Normal 32.5-35.6 [facility] Comment on above: Performed By: #### P TT, CMP, BNP, PT, DIFF CBC, MG, HS TROP, LACTIC #### [address] Monocytes (Bld) [#/Vol] 1.0 10*3/uL High 0.0-0.8 [facility] Comment on above: Performed By: #### P TT, CMP, BNP, PT, DIFF CBC, MG, HS TROP, LACTIC #### [address] Monocytes/100 WBC (Bld) 11.7 % Normal . [facility] Comment on above: Performed By: #### P TT, CMP, BNP, PT, DIFF CBC, MG, HS TROP, LACTIC #### [address] Neutrophils (Bld) [#/Vol] 6.6 10*3/uL Normal 1.8-7.7 [facility] Comment on above: Performed By: #### P TT, CMP, BNP, PT, DIFF CBC, MG, HS TROP, LACTIC #### [address] Neutrophils/100 WBC (Bld) 80.0 % Normal . [facility] Comment on above: Performed By: #### P TT, CMP, BNP, PT, DIFF CBC, MG, HS TROP, LACTIC #### [place] [address] [place] NRBC% 0.1 /100{WBC} Normal 0-0.5 [facility] Comment on above: Performed By: #### P TT, CMP, BNP, PT, DIFF CBC, MG, HS TROP, LACTIC #### [address] Platelet mean volume (Bld) [Entitic vol] 10.9 fL High 6.6-10.1 [facility] Comment on above: Performed By: #### P TT, CMP, BNP, PT, DIFF CBC, MG, HS TROP, LACTIC #### [address] Platelets (Bld) [#/Vol] 117 10*3/uL Low 150-450 [facility] Comment on above: Performed By: #### P TT, CMP, BNP, PT, DIFF CBC, MG, HS TROP, LACTIC #### [address] RBC (Bld) [#/Vol] 3.47 10*6/uL Low 3.90-5.60 [facility] Comment on above: Performed By: #### P TT, CMP, BNP, PT, DIFF CBC, MG, HS TROP, LACTIC #### [address] WBC (Bld) [#/Vol] 8.3 10*3/uL Normal 4.1-10.5 [facility] Comment on above: Performed By: #### P TT, CMP, BNP, PT, DIFF CBC, MG, HS TROP, LACTIC #### [address] Glucose Poct Glucometerson 0 10-08-2023 Commemt1 Glu2: Cleaned Meter Normal [facility] Comment on above: Result Comment: PERF ORMED BY: [place] [address] PATHOLOGIST TELEMEDICINE PHYSICIAN RAHEL TREVINO M.D. Performed By: #### P TT, CMP, BNP, PT, DIFF CBC, MG, HS TROP, LACTIC #### [address] Glucose [Mass/Vol] 100 mg/dL Normal [facility] Comment on above: Result Comment: [facility] Glucose Reference Range is dependent on time and content of last meal. Glucose of more than 200 mg/dL in a nonstressed, ambulatory subject supports the diagnosis of Diabetes Mellitus. Performed By: #### P TT, CMP, BNP, PT, DIFF CBC, MG, HS TROP, LACTIC #### [address] Glucose [Mass/Vol] 141 mg/dL Normal [facility] Comment on above: Result Comment: [place] om Glucose Reference Range is dependent on time and content of last meal. Glucose of more than 200 mg/dL in a nonstressed, ambulatory subject supports the diagnosis of Diabetes Mellitus. PERFORMED BY: [place] [address] PATHOLOGIST TELEMEDICINE PHYSICIAN RAHEL TREVINO M.D. Performed By: #### P TT, CMP, BNP, PT, DIFF CBC, MG, HS TROP, LACTIC #### [address] Glucose [Mass/Vol] 166 mg/dL Normal [facility] Comment on above: Result Comment: [facility] om Glucose Reference Range is dependent on time and content of last meal. Glucose of more than 200 mg/dL in a nonstressed, ambulatory subject supports the diagnosis of Diabetes Mellitus. PERFORMED BY: [place] [address] PATHOLOGIST TELEMEDICINE PHYSICIAN RAHEL TREVINO M.D. Performed By: #### P TT, CMP, BNP, PT, DIFF CBC, MG, HS TROP, LACTIC #### [address] Magnesiumon 10-08-2023 Magnesium [Mass/Vol] 2.1 mg/dL Normal 1.9-2.7 [facility] Comment on above: Order Comment: Comme nt in am x3 then every Friday and Comment in am x3 then every Friday and Comment in am then every Friday Performed By: #### P TT, CMP, BNP, PT, DIFF CBC, MG, HS TROP, LACTIC #### [address] No Panel InformationOrdered By: Cali Patterson on 10-08-2023 Bedside Glucose Comment Glu2: cleaned meter [facility] Phosphoruson 02-14-2024 Phosphate [Mass/Vol] 3.3 mg/dL Normal 2.5-4.5 [facility] Comment on above: Order Comment: Comme nt in am x3 then every Friday and Comment in am x3 then every Friday and Comment in am then every Friday Performed By: #### P TT, CMP, BNP, PT, DIFF CBC, MG, HS TROP, LACTIC #### [facility] [address] [place] [id number] [place] Prealbuminon 10-08-2023 Prealbumin [Mass/Vol] 7.0 mg/dL Low 17.0-34.0 [facility] Comment on above: Order Comment: Comme nt in am x3 then every Friday and Comment in am x3 then every Friday and Comment in am then every Friday Performed By: #### P TT, CMP, BNP, PT, DIFF CBC, MG, HS TROP, LACTIC #### [facility] [address] [place] [id number] [facility] Prealbumin [Mass/volume] in Serum or PlasmaOrdered By: Kalina Moore on 10-08-2023 Prealbumin [Mass/Vol] 7.0 mg/dL 17.0-34.0 [facility] Triglyceride [Mass/volume] i n Serum or PlasmaOrdered By: Kalina Moore on 10-08-2023 Triglyceride [Mass/Vol] 100 mg/dL 35-149 F [facility] Comment on above: TRIG ATP III CLASSIF ICATIONTRIG less than 150 mg/dL NormalTRIG 150-199 mg/dL Borderline highTRIG 200-500 mg/dL High TRIG greater than 500 mg/dL Very highStandard traceable to the Center for Disease Conrtrol and Prevention (CDC) test method. Triglycerideson 10-08-2023 Triglyceride [Mass/Vol] 100 mg/dL Normal 35-149 F [facility] Comment on above: Order Comment: Comme [...] and Prevention (CDC) test method. PERFORMED BY: [place] [address] PATHOLOGIST TELEMEDICINE PHYSICIAN RAHEL TREVINO M.D. Performed By: #### P TT, CMP, BNP, PT, DIFF CBC, MG, HS TROP, LACTIC #### [address] Basic Metabolic Panelon 09-25 Anion gap [Moles/Vol] 12.4 mmol/L Normal 6.0-15.0 [facility] Comment on above: Performed By: #### P TT, CMP, BNP, PT, DIFF CBC, MG, HS TROP, LACTIC #### [address] Calcium [Mass/Vol] 7.7 mg/dL Low 8.6-10.3 [facility] Comment on above: Performed By: #### P TT, CMP, BNP, PT, DIFF CBC, MG, HS TROP, LACTIC #### [address] Chloride [Moles/Vol] 103 mmol/L Normal 98-107 [facility] Comment on above: Performed By: #### P TT, CMP, BNP, PT, DIFF CBC, MG, HS TROP, LACTIC #### [address] CO2 [Moles/Vol] 25.8 mmol/L Normal 21.0-31.0 [facility] Comment on above: Performed By: #### P TT, CMP, BNP, PT, DIFF CBC, MG, HS TROP, LACTIC #### [address] Creatinine [Mass/Vol] 1.05 mg/dL Normal 0.70-1.30 [facility] Comment on above: Performed By: #### P TT, CMP, BNP, PT, DIFF CBC, MG, HS TROP, LACTIC #### [place] [address] [place] Creatinine Clr Calc Pharmacy 67.33 [facility] Comment on above: Performed By: #### P TT, CMP, BNP, PT, DIFF CBC, MG, HS TROP, LACTIC #### [facility] [address] GFR/1.73 sq M.predicted MDRD (S/P/Bld) [Vol rate/Area] mL/min/{1.73_m2} [facility] Comment on above: Performed By: #### P TT, CMP, BNP, PT, DIFF CBC, MG, HS TROP, LACTIC #### [facility] [address] Glucose [Mass/Vol] 73 mg/dL Normal 70-100 [facility] Comment on above: Result Comment: [facility] Glucose Reference Range is dependent on time and content of last meal. Glucose of more than 200 mg/dL in a nonstressed, ambulatory subject supports the diagnosis of Diabetes Mellitus. ADA recommended reference range Performed By: #### P TT, CMP, BNP, PT, DIFF CBC, MG, HS TROP, LACTIC #### [facility] [address] Potassium [Moles/Vol] 3.2 mmol/L Low 3.5-5.1 [facility] Comment on above: Performed By: #### P TT, CMP, BNP, PT, DIFF CBC, MG, HS TROP, LACTIC #### [facility] [address] Sodium [Moles/Vol] 138 mmol/L Normal 136-145 [facility] Comment on above: Performed By: #### P TT, CMP, BNP, PT, DIFF CBC, MG, HS TROP, LACTIC #### [facility] [address] Urea nitrogen [Mass/Vol] 29 mg/dL High 7-25 [facility] Comment on above: Performed By: #### P TT, CMP, BNP, PT, DIFF CBC, MG, HS TROP, LACTIC #### [facility] [address] Complete Blood Count Auto Di ffon 02-13-2024 Basophils (Bld) [#/Vol] 0.0 10*3/uL Normal 0.0-0.2 [facility] Comment on above: Result Comment: PERF ORMED BY: [place] [address] PATHOLOGIST TELEMEDICINE PHYSICIAN RAHEL TREVINO M.D. Performed By: #### P TT, CMP, BNP, PT, DIFF CBC, MG, HS TROP, LACTIC #### [address] Basophils/100 WBC (Bld) 0.1 % Normal . [facility] Comment on above: Performed By: #### P TT, CMP, BNP, PT, DIFF CBC, MG, HS TROP, LACTIC #### [address] Eosinophils (Bld) [#/Vol] 0.0 10*3/uL Normal 0.0-0.45 [facility] Comment on above: Performed By: #### P TT, CMP, BNP, PT, DIFF CBC, MG, HS TROP, LACTIC #### [address] Eosinophils/100 WBC (Bld) 0.1 % Normal . [facility] Comment on above: Performed By: #### P TT, CMP, BNP, PT, DIFF CBC, MG, HS TROP, LACTIC #### [address] Erythrocyte distribution width (RBC) [Ratio] 14.5 % Normal 12.0-14.8 [facility] Comment on above: Performed By: #### P TT, CMP, BNP, PT, DIFF CBC, MG, HS TROP, LACTIC #### [address] Hematocrit (Bld) [Volume fraction] 27.8 % Low 38.8-50.0 [facility] Comment on above: Performed By: #### P TT, CMP, BNP, PT, DIFF CBC, MG, HS TROP, LACTIC #### [place] [id number] [place] Hemoglobin (Bld) [Mass/Vol] 9.4 g/dL Low 13.0-17.0 [facility] Comment on above: Performed By: #### P TT, CMP, BNP, PT, DIFF CBC, MG, HS TROP, LACTIC #### [address] Lymphocytes (Bld) [#/Vol] 0.3 10*3/uL Low 1.00-4.8 [facility] Comment on above: Performed By: #### P TT, CMP, BNP, PT, DIFF CBC, MG, HS TROP, LACTIC #### [address] Lymphocytes/100 WBC (Bld) 1.7 % Normal . [facility] Comment on above: Performed By: #### P TT, CMP, BNP, PT, DIFF CBC, MG, HS TROP, LACTIC #### [address] MCH (RBC) [Entitic mass] 29.2 pg Normal 27.5-35.2 [facility] Comment on above: Performed By: #### P TT, CMP, BNP, PT, DIFF CBC, MG, HS TROP, LACTIC #### [address] MCV (RBC) [Entitic vol] 86.2 fL Normal 83.5-101 F [facility] Comment on above: Performed By: #### P TT, CMP, BNP, PT, DIFF CBC, MG, HS TROP, LACTIC #### [address] Mean Corpuscular HGB Conc 33.9 g/dL Normal 32.5-35.6 [facility] Comment on above: Performed By: #### P TT, CMP, BNP, PT, DIFF CBC, MG, HS TROP, LACTIC #### [address] Monocytes (Bld) [#/Vol] 0.5 10*3/uL Normal 0.0-0.8 [facility] Comment on above: Performed By: #### P TT, CMP, BNP, PT, DIFF CBC, MG, HS TROP, LACTIC #### [facility] [address] [place] [address] [place] Monocytes/100 WBC (Bld) 3.5 % Normal . [facility] Comment on above: Performed By: #### P TT, CMP, BNP, PT, DIFF CBC, MG, HS TROP, LACTIC #### [address] Neutrophils (Bld) [#/Vol] 14.5 10*3/uL High 1.8-7.7 [facility] Comment on above: Performed By: #### P TT, CMP, BNP, PT, DIFF CBC, MG, HS TROP, LACTIC #### [address] Neutrophils/100 WBC (Bld) 94.6 % Normal . [facility] Comment on above: Performed By: #### P TT, CMP, BNP, PT, DIFF CBC, MG, HS TROP, LACTIC #### [address] NRBC% 0.1 /100{WBC} Normal 0-0.5 [facility] Comment on above: Performed By: #### P TT, CMP, BNP, PT, DIFF CBC, MG, HS TROP, LACTIC #### [address] Platelet mean volume (Bld) [Entitic vol] 10.4 fL High 6.6-10.1 [facility] Comment on above: Performed By: #### P TT, CMP, BNP, PT, DIFF CBC, MG, HS TROP, LACTIC #### [place] [address] [place] Platelets (Bld) [#/Vol] 125 10*3/uL Signific ant change down 150-450 [facility] Comment on above: Performed By: #### P TT, CMP, BNP, PT, DIFF CBC, MG, HS TROP, LACTIC #### [place] [address] [place] RBC (Bld) [#/Vol] 3.22 10*6/uL Low 3.90-5.60 [facility] Comment on above: Performed By: #### P TT, CMP, BNP, PT, DIFF CBC, MG, HS TROP, LACTIC #### [facility] [address] WBC (Bld) [#/Vol] 15.3 10*3/uL High 4.1-10.5 [facility] Comment on above: Performed By: #### P TT, CMP, BNP, PT, DIFF CBC, MG, HS TROP, LACTIC #### [address] Fecal occult blood detection by immunochemistryOrdered By: Kalina Moore on 10-07-2023 Hemoglobin.gastrointest inal Ql (Stl) [facility] Magnesiumon 10-07-2023 Magnesium [Mass/Vol] 1.9 mg/dL Normal 1.9-2.7 [facility] Comment on above: Result Comment: PERF ORMED BY: [place] [address] PATHOLOGIST TELEMEDICINE PHYSICIAN RAHEL TREVINO M.D. Performed By: #### P TT, CMP, BNP, PT, DIFF CBC, MG, HS TROP, LACTIC #### [address] Stool Occult Blood (Guaiac)o n 10-07-2023 Stool Occult Blood (Guaiac) Occult Blood Negative for Occult Blood by Guaiac Methodology ------ Reference range = Negative PERFORMED BY: [place] [address] PATHOLOGIST TELEMEDICINE PHYSICIAN RAHEL TREVINO M.D. [facility] Comment on above: Performed By: #### P TT, CMP, BNP, PT, DIFF CBC, MG, HS TROP, LACTIC #### [place] [id number] [facility] Superficial Wound Cultureon 10-07-2023 Superficial Wound Culture [...] RESISTANT TO ALL B-LACTAM DRUGS. PERFORMED BY: [place] [address] PATHOLOGIST TELEMEDICINE PHYSICIAN RAHEL TREVINO M.D. [facility] Comment on above: Performed By: #### C USUP #### [address] Activated partial thrombopla stin time (aPTT) in platelet poor plasma by coagulation aOrdered By: Joseluis Mejia on 10-06-2023 aPTT Coag (PPP) [Time] 31.8 s 25.1-36.5 [facility] Comment on above: A hematocrit value g reater than 55% may lead to inaccurate results in coagulation testing. Patients having hematocrit values >55% require a special collection tube for coagulation studies. Please contact the laboratory at [phone] for redraw instructions. Alanine aminotransferase [En zymatic activity/volume] in Serum or PlasmaOrdered By: Joseluis Mejia on 10-06-2023 ALT [Catalytic activity/Vol] 16 U/L 7-52 [facility] Albumin [Mass/volume] in Ser um or Plasma by Bromocresol green (BCG) dye binding methoOrdered By: Joseluis Mejia on 10-06-2023 Albumin BCG dye [Mass/Vol] 3.1 g/dL 3.5-5.7 [facility] Alkaline phosphatase [Enzyma tic activity/volume] in Serum or PlasmaOrdered By: Joseluis Mejia on 10-06-2023 ALP [Catalytic activity/Vol] 139 U/L 34-104 [facility] Aspartate aminotransferase [ Enzymatic activity/volume] in Serum or PlasmaOrdered By: Joseluis Mejia on 10-06-2023 AST [Catalytic activity/Vol] 23 U/L 13-39 [facility] B-Type Natriuretic Peptideon 10-06-2023 Natriuretic peptide B (Bld) [Mass/Vol] 436.0 pg/mL High 5-100 [facility] Comment on above: Result Comment: PERF ORMED BY: [place] [address] PATHOLOGIST TELEMEDICINE PHYSICIAN RAHEL TREVINO M.D. Performed By: #### P TT, CMP, BNP, PT, DIFF CBC, MG, HS TROP, LACTIC #### [address] [address] [facility] Bacteria identified Aer cx N om (Unsp spec)Ordered By: Cali Patterson on 10-06-2023 Superficial Wound Culture Klebsiella pneumoniae [facility] Band form neutrophils/100 WB C Manual cnt (Bld)Ordered By: Joseluis Mejia on 10-06-2023 Band form neutrophils/100 WBC (Bld) 14 % 0-5 [facility] Basophils Auto (Bld) [#/Vol] Ordered By: Joseluis Mejia on 10-06-2023 Basophils (Bld) [#/Vol] N/A F [facility] Basophils/100 WBC Auto (Bld) Ordered By: Joseluis Mejia on 10-06-2023 Basophils/100 WBC (Bld) N/A F [facility] Bilirubin Test strip Ql (U)O rdered By: Joseluis Mejia on 10-06-2023 Bilirubin Ql (U) 1+ Negative [facility] Bilirubin.total [Mass/volume ] in Serum or PlasmaOrdered By: Joseluis Mejia on 10-06-2023 Bilirubin [Mass/Vol] 0.9 mg/dL 0.3-1.0 [facility] Blood Cultureon 10-06-2023 Bacteria identified Cx Nom (Bld) NO GROWTH 5 DAYS PERFORMED BY: [address] [address] PATHOLOGIST TELEMEDICINE PHYSICIAN RAHEL TREVINO M.D. Normal [facility] Comment on above: Performed By: #### P TT, CMP, BNP, PT, DIFF CBC, MG, HS TROP, LACTIC #### [facility] [address] Bacteria identified Cx Nom (Bld) Gram stain results called at 1647 on 10/07/23 [employer]ID Panel results called at 1647 on 10/07/23 Gram Stain Gram Negative Bacilli [...] S <0.5 Gram stain results called at 1647 on 10/07/23 [employer] BCID Panel results called at 1647 on 10/07/23 Staphylococcus aureus DNA [Presence] by [...] Not detected Streptococcus pneumoniae - reported at [facility] Not detected Proteus sp DNA [Presence] by [...] culture Not detected Group A (Streptococcus pyogenes) [id number] Not detected Group B Strep (Streptococcus agalactiae) [...] genetics method No (more content not included)... Normal [facility] Comment on above: Performed By: #### P TT, CMP, BNP, PT, DIFF CBC, MG, HS TROP, LACTIC #### [facility] [address] CNPAisha 10-06-2023 CNPN Telephone (PrysmN) -------- AISHA JULIEN ([id number]) 1955 M Date Time Provider Department 10/06/23 [facility] During your visit today, we recorded the following information about you: Jessie Zamora, LUCILLE 10/06/2023 12:04 PM Signed Updated short term disability paperwork was updated and faxed on 10/06/23. Faxed to [facility] and to [facility]. Allergies As of Date: 10/06/2023 (No Known [...] Encounter Status:Closed by JESSIE ZAMORA on 10/06/23 [facility] COVID CepheidOrdered By: Mckenzie Gutiérrez on 10-06-2023 SARS-CoV-2 (COVID-19) Ab IA Ql Negative Negative [facility] Comment on above: This is a duplicate Cepheid Xpert Xpress CoV-2/Flu/RSV Plus RNA by RT-PCR result to be used for statistical tracking purpose only. SARS-CoV-2 (COVID-19) RNA VERITO+probe Ql (Unsp spec) [facility] COVID-19 / Flu A/B / RSV [...] or Cepheid Disclaimer revoked sooner. PERFORMED BY: [address] [place] [address] PATHOLOGIST TELEMEDICINE PHYSICIAN RAHEL TREVINO M.D. Normal [facility] Comment on above: Performed By: #### P TT, CMP, BNP, PT, DIFF CBC, MG, HS TROP, LACTIC #### [facility] [address] Calcium [Mass/volume] in Ser um or PlasmaOrdered By: Joseluis Mejia on 10-06-2023 Calcium [Mass/Vol] 7.8 mg/dL 8.6-10.3 [facility] Carbon dioxide, total [Moles /volume] in Serum or PlasmaOrdered By: Joseluis Mejia on 10-06-2023 CO2 [Moles/Vol] 27.0 mmol/L 21.0-31.0 [facility] Cepheid COVID PCR Negativeon 10-06-2023 SARS-CoV-2 (COVID-19) RNA VERITO+probe Ql (Unsp spec) Negative Normal Negative [facility] Comment on above: Result Comment: This is a duplicate CepMemeid Xpert Xpress CoV-2/Flu/RSV Plus RNA by RT-PCR result to be used for statistical tracking purpose only. PERFORMED BY: [place] [address] PATHOLOGIST TELEMEDICINE PHYSICIAN RAHEL TREVINO M.D. Performed By: #### P TT, CMP, BNP, PT, DIFF CBC, MG, HS TROP, LACTIC #### [facility] [address] [place] [address] [place] Chloride [Moles/volume] in S sadi or PlasmaOrdered By: Joseluis Mejia on 10-06-2023 Chloride [Moles/Vol] 97 mmol/L 98-107 [facility] Color Auto (U)Ordered By: Loyd Mejia on 10-06-2023 Color (U) Dark yellow Yellow [facility] Comprehensive Metabolic Pane jefry 10-06-2023 Albumin [Mass/Vol] 3.1 g/dL Low 3.5-5.7 [facility] Comment on above: Performed By: #### P TT, CMP, BNP, PT, DIFF CBC, MG, HS TROP, LACTIC #### [facility] [address] [place] [address] [place] Albumin/Globulin [Mass ratio] 1.1 {ratio} Normal [facility] Comment on above: Performed By: #### P TT, CMP, BNP, PT, DIFF CBC, MG, HS TROP, LACTIC #### [facility] [address] [place] [address] [place] ALP [Catalytic activity/Vol] 139 U/L High 34-104 [facility] Comment on above: Performed By: #### P TT, CMP, BNP, PT, DIFF CBC, MG, HS TROP, LACTIC #### [address] ALT [Catalytic activity/Vol] 16 U/L Normal 7-52 [facility] Comment on above: Performed By: #### P TT, CMP, BNP, PT, DIFF CBC, MG, HS TROP, LACTIC #### [address] Anion gap [Moles/Vol] 14.1 mmol/L Normal 6.0-15.0 [facility] Comment on above: Performed By: #### P TT, CMP, BNP, PT, DIFF CBC, MG, HS TROP, LACTIC #### [address] AST [Catalytic activity/Vol] 23 U/L Normal 13-39 [facility] Comment on above: Performed By: #### P TT, CMP, BNP, PT, DIFF CBC, MG, HS TROP, LACTIC #### [address] Bilirubin [Mass/Vol] 0.9 mg/dL Normal 0.3-1.0 [facility] Comment on above: Performed By: #### P TT, CMP, BNP, PT, DIFF CBC, MG, HS TROP, LACTIC #### [address] Calcium [Mass/Vol] 7.8 mg/dL Low 8.6-10.3 [facility] Comment on above: Performed By: #### P TT, CMP, BNP, PT, DIFF CBC, MG, HS TROP, LACTIC #### [address] Chloride [Moles/Vol] 97 mmol/L Low 98-107 [facility] Comment on above: Performed By: #### P TT, CMP, BNP, PT, DIFF CBC, MG, HS TROP, LACTIC #### [address] CO2 [Moles/Vol] 27.0 mmol/L Normal 21.0-31.0 [facility] Comment on above: Performed By: #### P TT, CMP, BNP, PT, DIFF CBC, MG, HS TROP, LACTIC #### [facility] [address] Creatinine [Mass/Vol] 1.38 mg/dL High 0.70-1.30 [facility] Comment on above: Performed By: #### P TT, CMP, BNP, PT, DIFF CBC, MG, HS TROP, LACTIC #### [facility] [address] [place] [address] [place] Creatinine Clr Calc Pharmacy 51.23 [facility] Comment on above: Performed By: #### P TT, CMP, BNP, PT, DIFF CBC, MG, HS TROP, LACTIC #### [facility] [address] GFR/1.73 sq M.predicted MDRD (S/P/Bld) [Vol rate/Area] 55.701 mL/min/{1.73_m2} [facility] Comment on above: Performed By: #### P TT, CMP, BNP, PT, DIFF CBC, MG, HS TROP, LACTIC #### [facility] [address] Globulin (S) [Mass/Vol] 2.9 g/dL [facility] Comment on above: Performed By: #### P TT, CMP, BNP, PT, DIFF CBC, MG, HS TROP, LACTIC #### [facility] [address] Glucose [Mass/Vol] 116 mg/dL High 70-100 [facility] Comment on above: Result Comment: Tiona Glucose Reference Range is dependent on time and content of last meal. Glucose of more than 200 mg/dL in a nonstressed, ambulatory subject supports the diagnosis of Diabetes Mellitus. ADA recommended reference range Performed By: #### P TT, CMP, BNP, PT, DIFF CBC, MG, HS TROP, LACTIC #### [facility] [address] Potassium [Moles/Vol] 3.1 mmol/L Low 3.5-5.1 [facility] Comment on above: Performed By: #### P TT, CMP, BNP, PT, DIFF CBC, MG, HS TROP, LACTIC #### [facility] [address] Protein [Mass/Vol] 6.0 g/dL Low 6.4-8.9 [facility] Comment on above: Performed By: #### P TT, CMP, BNP, PT, DIFF CBC, MG, HS TROP, LACTIC #### [address] Sodium [Moles/Vol] 135 mmol/L Low 136-145 [facility] Comment on above: Performed By: #### P TT, CMP, BNP, PT, DIFF CBC, MG, HS TROP, LACTIC #### [address] Urea nitrogen [Mass/Vol] 34 mg/dL High 7-25 [facility] Comment on above: Performed By: #### P TT, CMP, BNP, PT, DIFF CBC, MG, HS TROP, LACTIC #### [address] Creatinine [Mass/volume] in Serum or PlasmaOrdered By: Joseluis Mejia on 10-06-2023 Creatinine [Mass/Vol] 1.38 mg/dL 0.70-1.30 [facility] Diff and CBCon 10-06-2023 Band form neutrophils/100 WBC (Bld) 14 % High 0-5 [facility] Comment on above: Performed By: #### P TT, CMP, BNP, PT, DIFF CBC, MG, HS TROP, LACTIC #### [address] Erythrocyte distribution width (RBC) [Ratio] 13.9 % Normal 12.0-14.8 [facility] Comment on above: Performed By: #### P TT, CMP, BNP, PT, DIFF CBC, MG, HS TROP, LACTIC #### [address] [place] [address] [place] Hematocrit (Bld) [Volume fraction] 30.4 % Low 38.8-50.0 [facility] Comment on above: Performed By: #### P TT, CMP, BNP, PT, DIFF CBC, MG, HS TROP, LACTIC #### [address] Hemoglobin (Bld) [Mass/Vol] 10.2 g/dL Low 13.0-17.0 [facility] Comment on above: Performed By: #### P TT, CMP, BNP, PT, DIFF CBC, MG, HS TROP, LACTIC #### [address] Lymphocytes/100 WBC (Bld) 1 % Low 18-42 [facility] Comment on above: Performed By: #### P TT, CMP, BNP, PT, DIFF CBC, MG, HS TROP, LACTIC #### [address] MCH (RBC) [Entitic mass] 29.0 pg Normal 27.5-35.2 [facility] Comment on above: Performed By: #### P TT, CMP, BNP, PT, DIFF CBC, MG, HS TROP, LACTIC #### [address] MCV (RBC) [Entitic vol] 86.3 fL Normal 83.5-101 F [facility] Comment on above: Performed By: #### P TT, CMP, BNP, PT, DIFF CBC, MG, HS TROP, LACTIC #### [address] Mean Corpuscular HGB Conc 33.6 g/dL Normal 32.5-35.6 [facility] Comment on above: Performed By: #### P TT, CMP, BNP, PT, DIFF CBC, MG, HS TROP, LACTIC #### [address] Microcytosis Moderate Normal [facility] Comment on above: Performed By: #### P TT, CMP, BNP, PT, DIFF CBC, MG, HS TROP, LACTIC #### [facility] [address] Monocytes/100 WBC (Bld) 37.74 % High 0.00-20.00 F [facility] Comment on above: Result Comment: For adults in ED, MDW > 20.0 may be associated with a higher risk of sepsis during the first 12 hrs of hospital admission The predictive value of MDW for identifying sepsis in patients with hematological abnormalities has not been established Performed By: #### P TT, CMP, BNP, PT, DIFF CBC, MG, HS TROP, LACTIC #### [facility] [address] Monocytes/100 WBC (Bld) 9 % Normal 2-11 F [facility] Comment on above: Performed By: #### P TT, CMP, BNP, PT, DIFF CBC, MG, HS TROP, LACTIC #### [address] Platelet Estimate Normal Normal Normal [facility] Comment on above: Performed By: #### P TT, CMP, BNP, PT, DIFF CBC, MG, HS TROP, LACTIC #### [address] Platelet mean volume (Bld) [Entitic vol] 10.2 fL High 6.6-10.1 [facility] Comment on above: Result Comment: PERF ORMED BY: [place] [address] PATHOLOGIST TELEMEDICINE PHYSICIAN RAHEL TREVINO M.D. Performed By: #### P TT, CMP, BNP, PT, DIFF CBC, MG, HS TROP, LACTIC #### [address] Platelet Morphology Normal Normal Normal [facility] Comment on above: Result Comment: PERF ORMED BY: [place] [address] PATHOLOGIST TELEMEDICINE PHYSICIAN RAHEL TREVINO M.D. Performed By: #### P TT, CMP, BNP, PT, DIFF CBC, MG, HS TROP, LACTIC #### [place] [address] [place] Platelets (Bld) [#/Vol] 154 10*3/uL Normal 150-450 [facility] Comment on above: Performed By: #### P TT, CMP, BNP, PT, DIFF CBC, MG, HS TROP, LACTIC #### [facility] [address] Poikilocytosis Slight Normal [facility] Comment on above: Performed By: #### P TT, CMP, BNP, PT, DIFF CBC, MG, HS TROP, LACTIC #### [facility] [address] Polychromasia Slight Normal [facility] Comment on above: Performed By: #### P TT, CMP, BNP, PT, DIFF CBC, MG, HS TROP, LACTIC #### [facility] [address] RBC (Bld) [#/Vol] 3.52 10*6/uL Low 3.90-5.60 [facility] Comment on above: Performed By: #### P TT, CMP, BNP, PT, DIFF CBC, MG, HS TROP, LACTIC #### [facility] [address] Segmented neutrophils/100 WBC (Bld) 76 % High 50-70 [facility] Comment on above: Performed By: #### P TT, CMP, BNP, PT, DIFF CBC, MG, HS TROP, LACTIC #### [address] WBC (Bld) [#/Vol] 24.5 10*3/uL High 4.1-10.5 [facility] Comment on above: Performed By: #### P TT, CMP, BNP, PT, DIFF CBC, MG, HS TROP, LACTIC #### [address] ECG 12 lead ECGon 10-06-2023 ECG 12 lead ECG [facility] [address] [place] [address] [place] [address] Electrocardiograph Report Signed Patient: Aisha Julien MR#: [id number] : 1955 Acct:[id number] Age/Sex: 68 / M ADM Date: 10/06/23 [...] Tyra Gibbons MD 09/25 10/18 1442 Normal [facility] Eosinophils Auto (Bld) [#/Vo l]Ordered By: Joseluis Mejia on 10-06-2023 Eosinophils (Bld) [#/Vol] N/A [facility] Eosinophils/100 WBC Auto (Bl d)Ordered By: Joseluis Mejia on 10-06-2023 Eosinophils/100 WBC (Bld) N/A [facility] Erythrocyte distribution wid th Auto (RBC) [Ratio]Ordered By: Joseluis Mejia on 10-06-2023 Erythrocyte distribution width (RBC) [Ratio] 13.9 % 12.0-14.8 [facility] Globulin Calc (S) [Mass/Vol] Ordered By: Joseluis Mejia on 10-06-2023 Globulin (S) [Mass/Vol] 2.9 g/dL F [facility] Glucose [Mass/volume] in Ser um or PlasmaOrdered By: Joseluis Mejia on 10-06-2023 Glucose [Mass/Vol] 116 mg/dL 70-100 [facility] Comment on above: ADA recommended refe rence rangeRandom Glucose Reference Range is dependent on time and content of last meal. Glucose of more than 200 mg/dL in a nonstressed, ambulatory subject supports the diagnosis of Diabetes Mellitus. Hematocrit Auto (Bld) [Volum e fraction]Ordered By: Joseluis Mejia on 10-06-2023 Hematocrit (Bld) [Volume fraction] 30.4 % 38.8-50.0 [facility] Hemoglobin [Mass/volume] in BloodOrdered By: Joseluis Mejia on 10-06-2023 Hemoglobin (Bld) [Mass/Vol] 10.2 g/dL 13.0-17.0 [facility] INR in Platelet poor plasma by Coagulation assayOrdered By: Joseluis Mejia on 10-06-2023 INR Coag (PPP) [Relative time] 1.2 {INR} [facility] Comment on above: INR Therapeutic Rang [...] on 10-06-2023 Ketones (U) [Mass/Vol] Negative Negative [facility] Lactate [Moles/volume] in Se rum or PlasmaOrdered By: Jean Paul Gutiérrez on 10-06-2023 Lactate [Moles/Vol] 1.5 mmol/L 0.5-2.2 [facility] Lactic Acidon 10-06-2023 Lactate [Moles/Vol] 1.5 mmol/L Normal 0.5-2.2 [facility] Comment on above: Result Comment: PERF ORMED BY: [place] [address] PATHOLOGIST TELEMEDICINE PHYSICIAN RAHEL TREVINO M.D. Performed By: #### P TT, CMP, BNP, PT, DIFF CBC, MG, HS TROP, LACTIC #### [address] Lactate [Moles/Vol] 1.3 mmol/L Normal 0.5-2.2 [facility] [facility] Comment on above: Result Comment: PERF ORMED BY: [address] [place] [address] PATHOLOGIST TELEMEDICINE PHYSICIAN RAHEL TREVINO M.D. Performed By: #### P TT, CMP, BNP, PT, DIFF CBC, MG, HS TROP, LACTIC #### [facility] [address] Leukocytes [#/volume] correc johnnie for nucleated erythrocytes in Blood by Automated counOrdered By: Joseluis Mejia on 10-06-2023 WBC corrected for nucl RBC Auto (Bld) [#/Vol] 24.5 10*3/uL 4.1-10.5 [facility] Lymphocytes Auto (Bld) [#/Vo l]Ordered By: Joseluis Mejia on 10-06-2023 Lymphocytes (Bld) [#/Vol] N/A [facility] Lymphocytes/100 WBC Auto (Bl d)Ordered By: Joseluis Mejia on 10-06-2023 Lymphocytes/100 WBC (Bld) N/A [facility] Lymphocytes/100 WBC Manual c nt (Bld)Ordered By: Joseluis Mejia on 10-06-2023 Lymphocytes/100 WBC (Bld) 1 % 18-42 [facility] MCH Auto (RBC) [Entitic mass ]Ordered By: Joseluis Mejia on 10-06-2023 MCH (RBC) [Entitic mass] 29.0 pg 27.5-35.2 [facility] MCHC Auto (RBC) [Mass/Vol]Or dered By: Joseluis Mejia on 10-06-2023 MCHC (RBC) [Mass/Vol] 33.6 g/dL 32.5-35.6 [facility] MCV Auto (RBC) [Entitic vol] Ordered By: Joseluis Mejia on 10-06-2023 MCV (RBC) [Entitic vol] 86.3 fL 83.5-101 F [facility] Magnesiumon 10-06-2023 Magnesium [Mass/Vol] 2.0 mg/dL Normal 1.9-2.7 [facility] Comment on above: Result Comment: PERF ORMED BY: [address] [place] [address] PATHOLOGIST TELEMEDICINE PHYSICIAN RAHEL TREVINO M.D. Performed By: #### P TT, CMP, BNP, PT, DIFF CBC, MG, HS TROP, LACTIC #### [facility] [address] Magnesium [Mass/volume] in S sadi or PlasmaOrdered By: Joseluis Mejia on 10-06-2023 Magnesium [Mass/Vol] 2.0 mg/dL 1.9-2.7 [facility] Microcytes LM Ql (Bld)Ordere d By: Joseluis Mejia on 10-06-2023 Microcytes Ql (Bld) Moderate [facility] Monocyte distribution width [Entitic volume] in Blood by AutomatedOrdered By: Joseluis Mejia on 10-06-2023 Monocyte distribution width Auto (Bld) [Entitic vol] 37.74 % 0.00-20.00 [facility] Comment on above: For adults in ED, MD W > 20.0 may be associated with a higher risk of sepsis during the first 12 hrs of hospital admissionThe predictive value of MDW for identifying sepsis in patients with hematological abnormalities has not been established Monocytes Auto (Bld) [#/Vol] Ordered By: Joseluis Mejia on 10-06-2023 Monocytes (Bld) [#/Vol] N/A F [facility] Monocytes/100 WBC Auto (Bld) Ordered By: Joseluis Mejia on 10-06-2023 Monocytes/100 WBC (Bld) N/A F [facility] Monocytes/100 WBC Manual cnt (Bld)Ordered By: Joseluis Mejia on 10-06-2023 Monocytes/100 WBC (Bld) 9 % 2-11 F [facility] Natriuretic peptide B [Mass/ Vol]Ordered By: Joseluis Mejia on 10-06-2023 Natriuretic peptide B (Bld) [Mass/Vol] 436.0 pg/mL 5-100 [facility] Neutrophils Auto (Bld) [#/Vo l]Ordered By: Joseluis Mejia on 10-06-2023 Neutrophils (Bld) [#/Vol] N/A [facility] Neutrophils/100 WBC Auto (Bl d)Ordered By: Joseluis Mejia on 10-06-2023 Neutrophils/100 WBC (Bld) N/A [facility] Nitrite Test strip Ql (U)Ord ered By: Joseluis Mejia on 10-06-2023 Nitrite Ql (U) Negative Negative [facility] No Panel InformationOrdered By: Jean Paul Gutiérrez on 10-06-2023 Bacterial ID (NA Multiplex Assay) Enterobacter cloacae complex [facility] No Panel InformationOrdered By: Joseluis Mejia on 10-06-2023 Estimated GFR (CKD-EPI) 55.701 mL/Min [facility] Creatinine Clearance (Chem 51.23 [facility] Nucleated erythrocytes [Pres ence] in Blood by Automated countOrdered By: Joseluis Mejia on 10-06-2023 Nucleated RBC Auto Ql (Bld) N/A [facility] Partial Thromboplastin Timeo n 10-06-2023 aPTT Coag (Bld) [Time] 31.8 s Normal 25.1-36.5 [facility] Comment on above: Result Comment: A he matocrit value greater than 55% may lead to inaccurate results in coagulation testing. Patients having hematocrit values >55% require a special collection tube for coagulation studies. Please contact the laboratory at [phone] for redraw instructions. PERFORMED BY: [place] [address] PATHOLOGIST TELEMEDICINE PHYSICIAN RAHEL TREVINO M.D. Performed By: #### P TT, CMP, BNP, PT, DIFF CBC, MG, HS TROP, LACTIC #### [facility] [address] [place] [address] Platelet adequacy [Presence] in Blood by Light microscopyOrdered By: Joseluis Mejia on 10-06-2023 Platelets LM Ql (Bld) Normal Normal [facility] Platelet mean volume Auto (B ld) [Entitic vol]Ordered By: Joseluis Mejia on 10-06-2023 Platelet mean volume (Bld) [Entitic vol] 10.2 fL 6.6-10.1 [facility] Platelet morphology finding [Identifier] in BloodOrdered By: Joseluis Mejia on 10-06-2023 Platelet morphology finding Nom (Bld) Normal Normal [facility] Platelets Auto (Bld) [#/Vol] Ordered By: Joseluis Mejia on 10-06-2023 Platelets (Bld) [#/Vol] 154 10*3/uL 150-450 [facility] Poikilocytosis [Presence] in Blood by Light microscopyOrdered By: Joseluis Mejia on 10-06-2023 Poikilocytosis LM Ql (Bld) [facility] Polychromasia [Presence] in Blood by Light microscopyOrdered By: Joseluis Mejia on 10-06-2023 Polychromasia LM Ql (Bld) Slight [facility] Potassium [Moles/volume] in Serum or PlasmaOrdered By: Joseluis Mejia on 10-06-2023 Potassium [Moles/Vol] 3.1 mmol/L 3.5-5.1 [facility] Protein Auto test strip (U) [Mass/Vol]Ordered By: Joseluis Mejia on 10-06-2023 Protein (U) [Mass/Vol] Negative Negative [facility] Protein [Mass/volume] in Ser um or PlasmaOrdered By: Joseluis Mejia on 10-06-2023 Protein [Mass/Vol] 6.0 g/dL 6.4-8.9 [facility] Prothrombin Time INRon 10-06 INR Coag (PPP) [Relative time] 1.2 {INR} Normal [facility] Comment on above: Result Comment: INR [...] valves: 3 - 4.5 Performed By: #### P TT, CMP, BNP, PT, DIFF CBC, MG, HS TROP, LACTIC #### [facility] [address] PT Coag (PPP) [Time] 13.9 s High 9.0-12.9 [facility] Comment on above: Result Comment: A he matocrit value greater than 55% may lead to inaccurate results in coagulation testing. Patients having hematocrit values >55% require a special collection tube for coagulation studies. Please contact the laboratory at [phone] for redraw instructions. Performed By: #### P TT, CMP, BNP, PT, DIFF CBC, MG, HS TROP, LACTIC #### [facility] [address] Prothrombin time (PT)Ordered By: Joseluis Mejia on 10-06-2023 PT Coag (PPP) [Time] 13.9 s 9.0-12.9 [facility] Comment on above: A hematocrit value g reater than 55% may lead to inaccurate results in coagulation testing. Patients having hematocrit values >55% require a special collection tube for coagulation studies. Please contact the laboratory at [phone] for redraw instructions. RBC Auto (Bld) [#/Vol]Ordere d By: Joseluis Mejia on 10-06-2023 RBC (Bld) [#/Vol] 3.52 10*6/uL 3.90-5.60 [facility] RBC morphologyOrdered By: Loyd Mejia on 10-06-2023 RBC morphology finding Nom (Bld) N/A [facility] Segmented neutrophils/100 WB C Manual cnt (Bld)Ordered By: Joseluis Mejia on 10-06-2023 Segmented neutrophils/100 WBC (Bld) 76 % 50-70 [facility] Serum or plasma albumin/glob ulin mass ratioOrdered By: Joseluis Mejia on 10-06-2023 Albumin/Globulin [Mass ratio] 1.1 {ratio} [facility] Serum or plasma anion gap de terminationOrdered By: Joseluis Mejia on 10-06-2023 Anion gap [Moles/Vol] 14.1 mmol/L 6.0-15.0 [facility] Sodium [Moles/volume] in Ser um or PlasmaOrdered By: Joseluis Mejia on 10-06-2023 Sodium [Moles/Vol] 135 mmol/L 136-145 [facility] Specific gravity Auto test s trip (U) [Rel density]Ordered By: Joseluis Mejia on 10-06-2023 Specific gravity (U) [Rel density] 1.015 1.001-1.03 0 [facility] Troponin I High Sensitivityo n 10-06-2023 Troponin I High Sensitivity 19.4 pg/mL Normal 0.0-20.0 [facility] Comment on above: Result Comment: PERF ORMED BY: [place] [address] PATHOLOGIST TELEMEDICINE PHYSICIAN RAHEL TREVINO M.D. Performed By: #### P TT, CMP, BNP, PT, DIFF CBC, MG, HS TROP, LACTIC #### [facility] [address] [place] [address] Troponin I.cardiac [Mass/vol ume] in Serum or Plasma by Detection limit <= 0.01 ng/Ordered By: Joseluis Mejia on 10-06-2023 Troponin I.cardiac DL <= 0.01 ng/mL [Mass/Vol] 19.4 pg/mL 0.0-20.0 [facility] Urea nitrogen [Mass/volume] in Serum or PlasmaOrdered By: Joseluis Mejia on 10-06-2023 Urea nitrogen [Mass/Vol] 34 mg/dL 03-18 [facility] Urinalysison 10-06-2023 Appearance (U) Clear Normal Clear [facility] Comment on above: Order Comment: Name Collection Type:: Clean-Voided Midstream Performed By: #### P TT, CMP, BNP, PT, DIFF CBC, MG, HS TROP, LACTIC #### [facility] [address] [place] [address] Bilirubin,Urine 1+ High Negative [facility] Comment on above: Order Comment: Name Collection Type:: Clean-Voided Midstream Performed By: #### P TT, CMP, BNP, PT, DIFF CBC, MG, HS TROP, LACTIC #### [facility] [address] [place] [address] [place] Color (U) Dark Yellow Critically abnormal Yellow [facility] Comment on above: Order Comment: Name Collection Type:: Clean-Voided Midstream Performed By: #### P TT, CMP, BNP, PT, DIFF CBC, MG, HS TROP, LACTIC #### [facility] [address] [place] [address] Glucose Ql (U) Normal Normal Normal [facility] Comment on above: Order Comment: Name Collection Type:: Clean-Voided Midstream Performed By: #### P TT, CMP, BNP, PT, DIFF CBC, MG, HS TROP, LACTIC #### [address] Ketones Ql (U) Negative Normal Negative [facility] Comment on above: Order Comment: Name Collection Type:: Clean-Voided Midstream Performed By: #### P TT, CMP, BNP, PT, DIFF CBC, MG, HS TROP, LACTIC #### [address] Leukocyte esterase Test strip Ql (U) Negative Normal Negative [facility] Comment on above: Order Comment: Name Collection Type:: Clean-Voided Midstream Performed By: #### P TT, CMP, BNP, PT, DIFF CBC, MG, HS TROP, LACTIC #### [address] Nitrite,Urine Negative Normal Negative [facility] Comment on above: Order Comment: Name Collection Type:: Clean-Voided Midstream Performed By: #### P TT, CMP, BNP, PT, DIFF CBC, MG, HS TROP, LACTIC #### [address] Occult Blood,Urine Negative Normal Negative [facility] Comment on above: Order Comment: Name Collection Type:: Clean-Voided Midstream Result Comment: PERF ORMED BY: [place] [address] PATHOLOGIST TELEMEDICINE PHYSICIAN RAHEL TREVINO M.D. Performed By: #### P TT, CMP, BNP, PT, DIFF CBC, MG, HS TROP, LACTIC #### [address] pH (U) 5.0 [pH] Normal 5.0-9.0 [facility] Comment on above: Order Comment: Name Collection Type:: Clean-Voided Midstream Performed By: #### P TT, CMP, BNP, PT, DIFF CBC, MG, HS TROP, LACTIC #### [address] Protein,Urine Negative Normal Negative [facility] Comment on above: Order Comment: Name Collection Type:: Clean-Voided Midstream Performed By: #### P TT, CMP, BNP, PT, DIFF CBC, MG, HS TROP, LACTIC #### [facility] [address] Specificy [place],Urine 1.015 Normal 1.00 1-1.03 0 [facility] Comment on above: Order Comment: Name Collection Type:: Clean-Voided Midstream Performed By: #### P TT, CMP, BNP, PT, DIFF CBC, MG, HS TROP, LACTIC #### [facility] [address] Urobilinogen,Urine Normal Normal Normal [facility] Comment on above: Order Comment: Name Collection Type:: Clean-Voided Midstream Performed By: #### P TT, CMP, BNP, PT, DIFF CBC, MG, HS TROP, LACTIC #### [facility] [address] Urine clarity by refractomet ry automatedOrdered By: Joseluis Mejia on 10-06-2023 Clarity Refractometry automated (U) Clear Clear [facility] Urine glucose measurement by automated test strip (mass/volume)Ordered By: Joseluis Mejia on 10-06-2023 Glucose Auto test strip (U) [Mass/Vol] Normal mg/dL Normal [facility] Urine hemoglobin detection b y automated test stripOrdered By: Joseluis Mejia on 10-06-2023 Hemoglobin Auto test strip Ql (U) Negative Negative [facility] Urine leukocyte esterase det ection by automated test stripOrdered By: Joseluis Mejia on 10-06-2023 Leukocyte esterase Auto test strip Ql (U) Negative Negative [facility] Urobilinogen Auto test strip (U) [Mass/Vol]Ordered By: Joseluis Mejia on 10-06-2023 Urobilinogen (U) [Mass/Vol] Normal mg/dL Normal [facility] WBC Auto (Bld) [#/Vol]Ordere d By: Joseluis Mejia on 10-06-2023 WBC (Bld) [#/Vol] 24.5 10*3/uL 4.1-10.5 [facility] XR chest 2V*on 10-06-2023 XR chest 2V* [facility] [place] [address] XRay Report Signed Patient: Aisha Julien MR#: [id number] : 1955 Acct:[id number] Age/Sex: 68 / M ADM Date: 10/06/23 [...] Santa Jr., D.OAlma10/06/2023 2:13 PM Dictation Location: [place] [address] Transcribed By: [facility] 10/06/23 141 Dictated By: Lebron Santa Jr, DO 10/06/23 141 Signed By: 10/06/23 141 Normal [facility] pH Auto test strip (U)Ordere d By: Joseluis Mejia on 10-06-2023 pH (U) 5.0 [pH] 5.0-9.0 [facility] CNOVon 10-02-2023 CNOV Office Visit (GENNOM ) -------- AISHA JULIEN ([id number]) 1955 M Date Time Provider Department 10/02/23 [...] lesions, tenderness (more content not included)... Normal [facility] CT PANCREAS/PELVIS W IVCONon 10-01-2023 CT PANCREAS/PELVIS W IVCON * * *Final Report* * * DATE OF EXAM: Oct 01 2023 9:04AM [facility] 0553 - CT PANCREAS/PELVIS W [...] by: NATHALIE (more content not included)... Normal [facility] CNPNon 09-15-2023 CNPN Telephone ([id number]) -------- AISHA JULIEN ([id number]) 1955 M Date Time Provider Department 09/15/23 [facility] [id number] During your visit today, we recorded the following information about you: Kelsea Valenzuela MA 09/15/2023 1:04 PM Signed Cesilia from [facility] called needing clarification on his discharge medications. Call back # [phone] Jessie Zamora RN 09/15/2023 4:21 PM Signed Called Cesilia back from [facility] to help clarify medications from recent admission. 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 She need a current medication list faxed to [phone]. If you have any questions she can be reached at [phone]. Thank you! Jessie Zamora, RN 09/11/2023 10:01 AM Signed Hospital discharge medication list faxed 09/10/23 to [facility]. Allergies As of Date: 09/10/2023 [...] Status:Closed by JESSIE ZAMORA on 09/11/23 Normal [facility] Albumin SerPl-mCncon 024 Albumin [Mass/Vol] 2.9 g/dL Low 3.9-4.9 [facility] Comment on above: Order Comment: Speci men Type: BLOOD SPECIMENOrdering Facility: [facility] Address: [address] [place] [address] Performed By: #### 1 751-7, 88419-2, , 2776- ####[facility] [id number] [place] [address] [place] Basic metabolic 2000 panelon 09-05-2023 Anion gap [Moles/Vol] 10 mmol/L Normal 05-12 [facility] Comment on above: Order Comment: Speci men Type: BLOOD SPECIMENOrdering Facility: [facility] Address: [address] [place] [address] Performed By: #### 1 751-7, 23756-7, , 2776-08 ####[facility]ORYCL[facility] [id number] [place] [id number] [place] Calcium [Mass/Vol] 8.2 mg/dL Low 8.5-10.2 [facility] Comment on above: Order Comment: Speci men Type: BLOOD SPECIMENOrdering Facility: [facility] Address: [address] [facility] [address] Performed By: #### 1 751-7, 37168-9, , 2776-08 ####[facility]ORYCLIA [id number] [place] [address] [place] Chloride [Moles/Vol] 107 mmol/L High 97-105 [facility] Comment on above: Order Comment: Speci men Type: BLOOD SPECIMENOrdering Facility: [facility] Address: [address] [place] [address] Performed By: #### 1 751-7, 31728-0, , 2776-1 ####[facility]ORYCL[facility] [id number] [place] [address] [place] CO2 [Moles/Vol] 24 mmol/L Normal 22-30 [facility] Comment on above: Order Comment: Speci men Type: BLOOD SPECIMENOrdering Facility: [facility] Address: [place] [address] Performed By: #### 1 751-7, 72624-0, 36291-7, 2776-08 ####[facility]ATORYCLIA [id number] [place] [id number] [place] Creatinine [Mass/Vol] 0.83 mg/dL Normal 0.73-1.22 [facility] Comment on above: Order Comment: Speci men Type: BLOOD SPECIMENOrdering Facility: [facility] Address: [address] [place] [address] Performed By: #### 1 751-7, 43370-8, , 2776-08 ####[facility]ATORYCLIA [id number] [place] [address] [place] Creatinine and Glomerular filtration rate.predicted panel (S/P/Bld) 95 mL/min/1.73m??? Normal >=60 [facility] Comment on above: Order Comment: Miai daniela Type: BLOOD SPECIMENOrdering Facility: [facility] Address: [address] [place] [address] Result Comment: Bailey mated Glomerular Filtration Rate [...] actual GFR. Performed By: #### 1 751-7, 02507-0, 35464-1, 2776-08 ####[facility]ORYCLIA [id number] [place] [address] [place] Glucose [Mass/Vol] 75 mg/dL Normal 74-99 [facility] Comment on above: Order Comment: Speci men Type: BLOOD SPECIMENOrdering Facility: [facility] Address: [address] [place] [address] Result Comment: The [place] Diabetes Association (ADA) provides guidance for cutoff [...] Standards of Medical Care in Diabetes 2016, [place] [employer]. Diabetes Care. 2016.39(Suppl 1). Performed By: #### 1 751-7, 10005-1, , 2776-08 ####[facility] LABORATORYCLIA [id number] [place] [address] [place] Potassium [Moles/Vol] 4.4 mmol/L Normal 3.7-5.1 [facility] Comment on above: Order Comment: Speci men Type: BLOOD SPECIMENOrdering Facility: [facility] Address: [address] [place] [address] Performed By: #### 1 751-7, 80942-0, , 2776-08 ####[facility] LABORATORYCLIA [id number] [place] [address] [place] Sodium [Moles/Vol] 141 mmol/L Normal 136-144 [facility] Comment on above: Order Comment: Speci men Type: BLOOD SPECIMENOrdering Facility: [facility] Address: [address] [place] [address] Performed By: #### 1 751-7, 63578-5, , 2776-08 ####[facility] LABORATORYCLIA [id number] [place] [address] [place] Urea nitrogen [Mass/Vol] 25 mg/dL High 9-24 [facility] Comment on above: Order Comment: Speci men Type: BLOOD SPECIMENOrdering Facility: [facility] Address: [address] [place] [address] Performed By: #### 1 751-7, 33443-7, , 2776-08 ####[facility]ORATORYCLIA [id number] [place] [id number] [facility] CASE MANAGEMon 09-05-2023 CASE MANAGEM Normal [facility] CASE MANAGEM Normal [facility] CASE MANAGEM Normal [facility] CASE MANAGEM Normal [facility] CNDSon 09-05-2023 CNDS Normal [facility] Magnesium SerPl-mCncon 09-05 Magnesium [Mass/Vol] 2.2 mg/dL Normal 1.7-2.3 [facility] Comment on above: Order Comment: Speci men Type: BLOOD SPECIMENOrdering Facility: [facility] Address: [address] [place] [address] Performed By: #### 1 751-7, 32022-3, , 2776-08 ####[facility] LABORATORYCLIA [id number] [place] [id number] [place] NUTRITIONon 09-05-2023 NUTRITION Normal [facility] Phosphate SerPl-mCncon 09-05 Phosphate [Mass/Vol] 4.6 mg/dL Normal 2.7-4.8 [facility] Comment on above: Order Comment: Speci men Type: BLOOD SPECIMENOrdering Facility: [facility] Address: [address] [place] [address] Performed By: #### 1 751-7, 80522-2, , 2776-08 ####[facility]ORATORYCLIA [id number] [place] [id number] [place] Albumin SerPl-mCncon 024 Albumin [Mass/Vol] 2.4 g/dL Low 3.9-4.9 [facility] Comment on above: Order Comment: Speci men Type: BLOOD SPECIMENOrdering Facility: [facility] Address: [address] [place] [address] Performed By: #### 1 751-7, 19078-8, , 2776- ####[facility]ORATORYCLIA [id number] [place] [address] [place] Basic metabolic 2000 panelon 09-04-2023 Anion gap [Moles/Vol] 6 mmol/L Low 9-18 [facility] Comment on above: Order Comment: Speci men Type: BLOOD SPECIMENOrdering Facility: [facility] Address: [address] [place] [address] Performed By: #### 1 751-7, 77145-0, , 2776- ####[facility] LABORATORYCLIA [id number] [place] [id number] [place] Calcium [Mass/Vol] 8.0 mg/dL Low 8.5-10.2 [facility] Comment on above: Order Comment: Speci men Type: BLOOD SPECIMENOrdering Facility: [facility] Address: [address] [place] [address] Performed By: #### 1 751-7, 30750-2, , 2776- ####[facility]ATORYCLIA [id number] [place] [id number] [place] Chloride [Moles/Vol] 103 mmol/L Normal 97-105 [facility] Comment on above: Order Comment: Speci men Type: BLOOD SPECIMENOrdering Facility: [facility] Address: [address] [place] [address] Performed By: #### 1 751-7, 17187-9, , 2776- ####[facility]ATORYCLIA [id number] [place] [id number] [place] CO2 [Moles/Vol] 30 mmol/L Normal 22-30 [facility] Comment on above: Order Comment: Speci men Type: BLOOD SPECIMENOrdering Facility: [facility] Address: [address] [place] [address] Performed By: #### 1 751-7, 58947-7, , 2776- ####[facility]ORATORYCLIA [id number] [place] [address] [place] Creatinine [Mass/Vol] 0.80 mg/dL Normal 0.73-1.22 [facility] Comment on above: Order Comment: Arben suarez Type: BLOOD SPECIMENOrdering Facility: [facility] Address: [address] [place] [address] Performed By: #### 1 751-7, 77000-6, 75968-8, 2776-08 ####[facility] LABORATORYCLIA [id number] [place] [address] [place] Creatinine and Glomerular filtration rate.predicted panel (S/P/Bld) 96 mL/min/1.73m??? Normal >=60 [facility] Comment on above: Order Comment: Arben suarez Type: BLOOD SPECIMENOrdering Facility: [facility] Address: [address] [place] [address] Result Comment: Bailey mated Glomerular Filtration Rate [...] actual GFR. Performed By: #### 1 751-7, 76064-9, , 2776-08 ####[facility] LABORATORYCLIA [id number] [place] [id number] [place] Glucose [Mass/Vol] 109 mg/dL High 74-99 [facility] Comment on above: Order Comment: Arben suarez Type: BLOOD SPECIMENOrdering Facility: [facility] Address: [address] [place] [address] Result Comment: The [place] Diabetes Association (ADA) provides guidance for cutoff [...] Standards of Medical Care in Diabetes 2016, [place] [employer] Association. Diabetes Care. 2016.39(Suppl 1). Performed By: #### 1 751-7, 63374-4, 83925-1, 2776- ####[facility] LABORATORYCLIA [id number] [place] [id number] [place] Potassium [Moles/Vol] 4.3 mmol/L Normal 3.7-5.1 [facility] Comment on above: Order Comment: Speci men Type: BLOOD SPECIMENOrdering Facility: [facility] Address: [address] [place] [address] Performed By: #### 1 751-7, 60026-9, , 2776-08 ####[facility] LABORATORYCLIA [id number] [place] [address] [place] Sodium [Moles/Vol] 139 mmol/L Normal 136-144 [facility] Comment on above: Order Comment: Speci men Type: BLOOD SPECIMENOrdering Facility: [facility] Address: [address] [place] [address] Performed By: #### 1 751-7, 72799-3, , 2776-08 ####[facility] LABORATORYCLIA [id number] [place] [id number] [place] Urea nitrogen [Mass/Vol] 21 mg/dL Normal 9-24 [facility] Comment on above: Order Comment: Speci men Type: BLOOD SPECIMENOrdering Facility: [facility] Address: [address] [place] [address] Performed By: #### 1 751-7, 21249-1, , 2776-08 ####[facility] LABORATORYCLIA [id number] [place] [id number] [place] CASE MANAGEMon 09-04-2023 CASE MANAGEM Normal [facility] Magnesium SerPl-mCncon 09-04 Magnesium [Mass/Vol] 2.1 mg/dL Normal 1.7-2.3 [facility] Comment on above: Order Comment: Speci men Type: BLOOD SPECIMENOrdering Facility: [facility] Address: [address] [place] [id number] Performed By: #### 1 751-7, 27280-4, , 2776-08 ####[facility] LABORATORYCLIA [id number] [place] [address] [place] NUTRITIONon 09-04-2023 NUTRITION Normal [facility]ate [facility] Phosphate [Mass/Vol] 3.6 mg/dL Normal 2.7-4.8 [facility] Comment on above: Order Comment: Speci men Type: BLOOD SPECIMENOrdering Facility: [facility] Address: [place] [address] Performed By: #### 1 751-7, 19541-8, , 2776-08 ####[facility] LABORATORYCLIA [id number] [place] [id number] [place] Albumin SerP-[facility] 024 Albumin [Mass/Vol] 2.7 g/dL Low 3.9-4.9 [facility] Comment on above: Order Comment: Speci men Type: BLOOD SPECIMENOrdering Facility: [facility] Address: [place] [address] Performed By: #### 1 751-7, 38078-6, , 2776-08 ####[facility] LABORATORYCLIA [id number] [place] [id number] [place] Basic metabolic 2000 panelon 09-03-2023 Anion gap [Moles/Vol] 9 mmol/L Normal 9-18 [facility] Comment on above: Order Comment: Speci men Type: BLOOD SPECIMENOrdering Facility: [facility] Address: [place] [address] Performed By: #### 1 751-7, 83287-9, , 2776-08 ####[facility] LABORATORYCLIA [id number] [place] [id number] [place] Calcium [Mass/Vol] 8.1 mg/dL Low 8.5-10.2 [facility] Comment on above: Order Comment: Speci men Type: BLOOD SPECIMENOrdering Facility: [facility] Address: [address] [place] [address] Performed By: #### 1 751-7, 64196-7, , 2776-08 ####[facility] LABORATORYCLIA [id number] [place] [id number] [place] Chloride [Moles/Vol] 97 mmol/L Normal 97-105 [facility] Comment on above: Order Comment: Speci men Type: BLOOD SPECIMENOrdering Facility: [facility] Address: [address] [place] [address] Performed By: #### 1 751-7, 47741-3, , 2776-08 ####[facility] LABORATORYCLIA [id number] [place] [address] [place] CO2 [Moles/Vol] 31 mmol/L High 22-30 [facility] Comment on above: Order Comment: Speci men Type: BLOOD SPECIMENOrdering Facility: [facility] Address: [address] [place] [address] Performed By: #### 1 751-7, 82415-6, , 2776-08 ####[facility] LABORATORYCLIA [id number] [place] [id number] [place] Creatinine [Mass/Vol] 0.84 mg/dL Normal 0.73-1.22 [facility] Comment on above: Order Comment: Speci men Type: BLOOD SPECIMENOrdering Facility: [facility] Address: [address] [place] [address] Performed By: #### 1 751-7, 04373-0, , 2776-08 ####[facility] LABORATORYCLIA [id number] [place] [id number] [place] Creatinine and Glomerular filtration rate.predicted panel (S/P/Bld) 95 mL/min/1.73m??? Normal >=60 [facility] Comment on above: Order Comment: Speci men Type: BLOOD SPECIMENOrdering Facility: [facility] Address: [address] [place] [address] Result Comment: Bailey mated Glomerular Filtration Rate [...] actual GFR. Performed By: #### 1 751-7, 87207-4, , 2776-08 ####[facility] LABORATORYCLIA [id number] [place] [id number] [place] Glucose [Mass/Vol] 91 mg/dL Normal 74-99 [facility] Comment on above: Order Comment: Arben suarez Type: BLOOD SPECIMENOrdering Facility: [facility] Address: [address] [place] [address] Result Comment: The [place] Diabetes Association (ADA) provides guidance for cutoff [...] Standards of Medical Care in Diabetes 2016, [place] [employer] Association. Diabetes Care. 2016.39(Suppl 1). Performed By: #### 1 751-7, 84272-3, , 2776-08 ####[facility] LABORATORYCLIA [id number] [place] [id number] [place] Potassium [Moles/Vol] 4.1 mmol/L Normal 3.7-5.1 [facility] Comment on above: Order Comment: Arben suarez Type: BLOOD SPECIMENOrdering Facility: [facility] Address: [address] [place] [address] Performed By: #### 1 751-7, 28550-1, 10096-7, 2776-08 ####[facility] LABORATORYCLIA [id number] [place] [address] [place] Sodium [Moles/Vol] 137 mmol/L Normal 136-144 [facility] Comment on above: Order Comment: Speci men Type: BLOOD SPECIMENOrdering Facility: [facility] Address: [address] [place] [address] Performed By: #### 1 751-7, 59588-6, , 2776-08 ####[facility] LABORATORYCLIA [id number] [place] [id number] [place] Urea nitrogen [Mass/Vol] 21 mg/dL Normal 9-24 [facility] Comment on above: Order Comment: Speci men Type: BLOOD SPECIMENOrdering Facility: [facility] Address: [address] [place] [address] Performed By: #### 1 751-7, 39027-4, , 2776-08 ####[facility] LABORATORYCLIA [id number] [place] [id number] [facility] [place] CASE MANAGEMon 09-03-2023 CASE MANAGEM Normal [facility] Magnesium [facility] Magnesium [Mass/Vol] 2.0 mg/dL Normal 1.7-2.3 [facility] Comment on above: Order Comment: Speci men Type: BLOOD SPECIMENOrdering Facility: [facility] Address: [address] [place] [id number] Performed By: #### 1 751-7, 65952-1, , 2776-08 ####[facility] LABORATORYCLIA [id number] [place] [id number] [place] NUTRITIONon 09-03-2023 NUTRITION Normal [facility] Phosphate SerPl-mCncon 09-03 Phosphate [Mass/Vol] 3.7 mg/dL Normal 2.7-4.8 [facility] Comment on above: Order Comment: Speci men Type: BLOOD SPECIMENOrdering Facility: [facility] Address: [address] [place] [address] Performed By: #### 1 751-7, 86857-2, 74705-4, 2777-1 ####[facility] LABORATORYCLIA [id number] [place] [address] [place] ALLIED HEALTHon 09-02-2023 ALLIED HEALTH Normal [facility] Albumin SerPl-mCncon 024 Albumin [Mass/Vol] 2.8 g/dL Low 3.9-4.9 [facility] Comment on above: Order Comment: Speci men Type: BLOOD SPECIMENOrdering Facility: [facility] Address: [address] [place] [address] Performed By: #### 1 751-7, 06849-1, , 8 ####[facility] LABORATORYCLIA [id number] [place] [id number] [place] Basic metabolic 2000 panelon 09-02-2023 Anion gap [Moles/Vol] 6 mmol/L Low 9-18 [facility] Comment on above: Order Comment: Speci men Type: BLOOD SPECIMENOrdering Facility: [facility] Address: [address] [place] [address] Performed By: #### 1 751-7, 64429-3, , 2571-03 ####[facility] LABORATORYCLIA [id number] [place] [id number] [place] Calcium [Mass/Vol] 8.3 mg/dL Low 8.5-10.2 [facility] Comment on above: Order Comment: Speci men Type: BLOOD SPECIMENOrdering Facility: [facility] Address: [address] [place] [address] Performed By: #### 1 751-7, 08745-3, , 8 ####[facility] LABORATORYCLIA [id number] [place] [id number] [place] Chloride [Moles/Vol] 100 mmol/L Normal 97-105 [facility] Comment on above: Order Comment: Speci men Type: BLOOD SPECIMENOrdering Facility: [facility] Address: [address] [place] [address] Performed By: #### 1 751-7, 14731-7, 02518-9, 8 ####[facility] LABORATORYCLIA [id number] [place] [address] [place] CO2 [Moles/Vol] 34 mmol/L High 22-30 [facility] Comment on above: Order Comment: Speci men Type: BLOOD SPECIMENOrdering Facility: [facility] Address: [address] [place] [address] Performed By: #### 1 751-7, 07418-3, , 2571-03 ####[facility] LABORATORYCLIA [id number] [place] [id number] [place] Creatinine [Mass/Vol] 0.88 mg/dL Normal 0.73-1.22 [facility] Comment on above: Order Comment: Speci men Type: BLOOD SPECIMENOrdering Facility: [facility] Address: [address] [place] [address] Performed By: #### 1 751-7, 31841-7, , 2571-03 ####[facility] LABORATORYCLIA [id number] [place] [id number] [place] Creatinine and Glomerular filtration rate.predicted panel (S/P/Bld) 94 mL/min/1.73m??? Normal >=60 [facility] Comment on above: Order Comment: Speci men Type: BLOOD SPECIMENOrdering Facility: [facility] Address: [address] [place] [address] Result Comment: Bailey mated Glomerular Filtration Rate [...] actual GFR. Performed By: #### 1 751-7, 65842-9, 00890-5, 2570-8 ####[facility] LABORATORYCLIA [id number] [place] [address] [place] Glucose [Mass/Vol] 95 mg/dL Normal 74-99 [facility] Comment on above: Order Comment: Speci men Type: BLOOD SPECIMENOrdering Facility: [facility] Address: [address] [place] [address] Result Comment: The [place] Diabetes Association (ADA) provides guidance for cutoff [...] Standards of Medical Care in Diabetes 2016, [place] [employer] Association. Diabetes Care. 2016.39(Suppl 1). Performed By: #### 1 751-7, 79433-5, , 2571-03 ####[facility] LABORATORYCLIA [id number] [place] [id number] [place] Potassium [Moles/Vol] 3.4 mmol/L Low 3.7-5.1 [facility] Comment on above: Order Comment: Speci men Type: BLOOD SPECIMENOrdering Facility: [facility] Address: [place] [address] Performed By: #### 1 751-7, 41858-6, , 2571-03 ####[facility] LABORATORYCLIA [id number] [place] [id number] [place] Sodium [Moles/Vol] 140 mmol/L Normal 136-144 [facility] Comment on above: Order Comment: Speci men Type: BLOOD SPECIMENOrdering Facility: [facility] Address: [address] [place] [address] Performed By: #### 1 751-7, 07906-8, , 2571-03 ####[facility] LABORATORYCLIA [id number] [address] [place] Urea nitrogen [Mass/Vol] 24 mg/dL Normal 9-24 [facility] Comment on above: Order Comment: Speci men Type: BLOOD SPECIMENOrdering Facility: [facility] Address: [address] [place] [address] Performed By: #### 1 751-7, 25917-3, 22678-5, 2571-8 ####[facility] LABORATORYCLIA [id number] [place] [address] [place] CBC panel Auto (Bld)on 09-02 Erythrocyte distribution width (RBC) [Ratio] 12.4 % Normal 11.5-15.0 [facility] Comment on above: Order Comment: Speci men Type: BLOOD SPECIMENOrdering Facility: [facility] Address: [address] [place] [address] Performed By: #### 5 8410-2 ####[facility] LABORATORYCLIA [id number] [address] [place] Hematocrit (Bld) [Volume fraction] 29.2 % Low 39.0-51.0 [facility] Comment on above: Order Comment: Speci men Type: BLOOD SPECIMENOrdering Facility: [facility] Address: [address] [place] [address] Performed By: #### 5 8410-2 ####[facility] LABORATORYCLIA [id number] [address] [place] Hemoglobin (Bld) [Mass/Vol] 9.8 g/dL Low 13.0-17.0 [facility] Comment on above: Order Comment: Speci men Type: BLOOD SPECIMENOrdering Facility: [facility] Address: [address] [place] [address] Performed By: #### 5 8410-2 ####[facility] LABORATORYCLIA [id number] [place] [address] [place] MCH (RBC) [Entitic mass] 29.3 pg Normal 26.0-34.0 [facility] Comment on above: Order Comment: Speci men Type: BLOOD SPECIMENOrdering Facility: [facility] Address: [address] [place] [address] Performed By: #### 5 8410-2 ####[facility] LABORATORYCLIA [id number] [place] [id number] [place] MCHC (RBC) [Mass/Vol] 33.6 g/dL Normal 30.5-36.0 [facility] Comment on above: Order Comment: Speci men Type: BLOOD SPECIMENOrdering Facility: [facility] Address: [address] [place] [address] Performed By: #### 5 8410-2 ####[facility] LABORATORYCLIA [id number] [place] [id number] [place] MCV (RBC) [Entitic vol] 87.4 fL Normal 80.0-100.0 [facility] Comment on above: Order Comment: Speci men Type: BLOOD SPECIMENOrdering Facility: [facility] Address: [address] [place] [address] Performed By: #### 5 8410-2 ####[facility] LABORATORYCLIA [id number] [place] [address] [place] Nucleated RBC (Bld) [#/Vol] 10*3/uL Normal <0.01 [facility] Comment on above: Order Comment: Speci men Type: BLOOD SPECIMENOrdering Facility: [facility] Address: [address] [place] [address] Performed By: #### 5 8410-2 ####[facility] LABORATORYCLIA [id number] [place] [id number] [place] Platelet mean volume (Bld) [Entitic vol] 11.2 fL Normal 9.0-12.7 [facility] Comment on above: Order Comment: Speci men Type: BLOOD SPECIMENOrdering Facility: [facility] Address: [address] [place] [address] Performed By: #### 5 8410-2 ####[facility] LABORATORYCLIA [id number] [place] [id number] [place] Platelets (Bld) [#/Vol] 229 10*3/uL Normal 150-400 [facility] Comment on above: Order Comment: Speci men Type: BLOOD SPECIMENOrdering Facility: [facility] Address: [address] [place] [address] Performed By: #### 5 8410-2 ####[facility] LABORATORYCLIA [id number] [place] [id number] [place] RBC (Bld) [#/Vol] 3.34 10*6/uL Low 4.20-6.00 [facility] Comment on above: Order Comment: Speci men Type: BLOOD SPECIMENOrdering Facility: [facility] Address: [address] [place] [address] Performed By: #### 5 8410-2 ####GE[facility] LABORATORYCLIA [id number] [place] [id number] [facility] WBC (Bld) [#/Vol] 5.51 10*3/uL Normal 3.70-11.00 [facility] Comment on above: Order Comment: Speci men Type: BLOOD SPECIMENOrdering Facility: [facility] Address: [address] [place] [address] Performed By: #### 5 8410-2 ####[facility] LABORATORYCLIA [id number] [place] [id number] [facility] PANCREAS W IVCONon 2023 CT PANCREAS W IVCON Normal [facility] Magnesium SerPl-mCncon 09-02 Magnesium [Mass/Vol] 1.9 mg/dL Normal 1.7-2.3 [facility] Comment on above: Order Comment: Speci men Type: BLOOD SPECIMENOrdering Facility: [facility] Address: [address] [place] [address] Performed By: #### 1 751-7, 63263-2, 59295-5, 2571-8 ####[facility] LABORATORYCLIA [id number] [place] [id number] [facility] [place] NUTRITIONon 09-02-2023 NUTRITION Normal [facility] Phosphate SerPl-mCncon 09-02 Phosphate [Mass/Vol] 2.5 mg/dL Low 2.7-4.8 [facility] Comment on above: Order Comment: Speci men Type: BLOOD SPECIMENOrdering Facility: [facility] Address: [address] [place] [address] Performed By: #### 2 777-1 ####[facility] LABORATORYCLIA [id number] [place] [address] [place] Trigl SerPl-mCncon Triglyceride [Mass/Vol] 70 mg/dL Normal <150 [facility] Comment on above: Order Comment: Speci men Type: BLOOD SPECIMENOrdering Facility: [facility] Address: [address] [place] [address] Result Comment: <150 mg/dL, Normal 150-199 mg/dL, Borderline high 200-499 mg/dL, High>499 mg/dL, Very highReference:1. National Cholesterol Education Program ATP III Guideline At-A-Glance Quick Desk Reference: National Heart, Lung, and Blood [place]. National Institutes of Health. 2001: NIH Publication No. 01-3305. Performed By: #### 1 751-7, 52727-5, 99770-6, 2570-8 ####[facility] LABORATORYCLIA [id number] [place] [id number] [place] Triglyceride [Mass/Vol]on FASTING TIME n/a Normal [facility] Comment on above: Order Comment: Speci men Type: BLOOD SPECIMENOrdering Facility: [facility] Address: [address] [place] [address] Performed By: #### 1 751-7, 18105-9, 32624-4, 2570-8 ####[facility] LABORATORYCLIA [id number] [place] [address] [place] Basic metabolic 2000 panelon 09-01-2023 Anion gap [Moles/Vol] 10 mmol/L Normal 9-18 [facility] Comment on above: Order Comment: Speci men Type: BLOOD SPECIMENOrdering Facility: [facility] Address: [address] [place] [address] Performed By: #### 1 9123-9, 62216-3, 2777-1, 31037-6 ####[facility] LABORATORYCLIA [id number] [place] [address] [place] Calcium [Mass/Vol] 8.4 mg/dL Low 8.5-10.2 [facility] Comment on above: Order Comment: Speci men Type: BLOOD SPECIMENOrdering Facility: [facility] Address: [address] [place] [address] Performed By: #### 1 9123-9, 28565-9, 2777-1, 81480-5 ####[facility] LABORATORYCLIA [id number] [place] [id number] [place] Chloride [Moles/Vol] 102 mmol/L Normal 97-105 [facility] Comment on above: Order Comment: Speci men Type: BLOOD SPECIMENOrdering Facility: [facility] Address: [address] [place] [address] Performed By: #### 1 9123-9, 63585-9, 277-1, 98007-0 ####[facility] LABORATORYCLIA [id number] [place] [id number] [place] CO2 [Moles/Vol] 29 mmol/L Normal 22-30 [facility] Comment on above: Order Comment: Speci men Type: BLOOD SPECIMENOrdering Facility: [facility] Address: [address] [place] [address] Performed By: #### 1 9123-9, 46492-4, 277-1, 59807-6 ####[facility] LABORATORYCLIA [id number] [place] [id number] [place] Creatinine [Mass/Vol] 0.93 mg/dL Normal 0.73-1.22 [facility] Comment on above: Order Comment: Speci men Type: BLOOD SPECIMENOrdering Facility: [facility] Address: [address] [place] [address] Performed By: #### 1 9123-9, 12997-8, 277-1, 95757-9 ####[facility] LABORATORYCLIA [id number] [place] [id number] [place] Creatinine and Glomerular filtration rate.predicted panel (S/P/Bld) 89 mL/min/1.73m??? Normal >=60 [facility] Comment on above: Order Comment: Arben suarez Type: BLOOD SPECIMENOrdering Facility: [facility] Address: [address] [place] [address] Result Comment: Bailey mated Glomerular Filtration Rate [...] actual GFR. Performed By: #### 1 9123-9, 57528-6, 2777-1, 70382-6 ####[facility] LABORATORYCLIA [id number] [place] [address] [place] Glucose [Mass/Vol] 110 mg/dL High 74-99 [facility] Comment on above: Order Comment: Arben suarez Type: BLOOD SPECIMENOrdering Facility: [facility] Address: [address] [place] [address] Result Comment: The [place] Diabetes Association (ADA) provides guidance for cutoff [...] Standards of Medical Care in Diabetes 2016, [place] [employer]. Diabetes Care. 2016.39(Suppl 1). Performed By: #### 1 9123-9, 25251-2, 2777-, 42217-3 ####[facility] LABORATORYCLIA [id number] [place] [address] [place] Potassium [Moles/Vol] 3.3 mmol/L Low 3.7-5.1 [facility] Comment on above: Order Comment: Speci men Type: BLOOD SPECIMENOrdering Facility: [facility] Address: [address] [place] [address] Performed By: #### 1 9123-9, 36806-0, 2777-, 87830-7 ####[facility] LABORATORYCLIA [id number] [place] [address] [place] Sodium [Moles/Vol] 141 mmol/L Normal 136-144 [facility] Comment on above: Order Comment: Speci men Type: BLOOD SPECIMENOrdering Facility: [facility] Address: [address] [place] [address] Performed By: #### 1 9123-9, 30580-3, 277-, 81794-7 ####[facility] LABORATORYCLIA [id number] [place] [address] [place] Urea nitrogen [Mass/Vol] 27 mg/dL High 9-24 [facility] Comment on above: Order Comment: Speci men Type: BLOOD SPECIMENOrdering Facility: [facility] Address: [address] [place] [address] Performed By: #### 1 9123-9, 66042-7, 27702-22, 45592-9 ####[facility]ORATORYCLIA [id number] [address] [place] CBC W Auto Differential pane l (Bld)on 09-01-2023 Basophils (Bld) [#/Vol] 0.04 10*3/uL Normal <0.11 [facility] Comment on above: Order Comment: Speci men Type: BLOOD SPECIMENOrdering Facility: [facility] Address: [address] [place] [address] Performed By: #### 5 7021-8 ####[facility] LABORATORYCLIA [id number] [address] [place] Basophils/100 WBC (Bld) 0.8 % Normal [facility] Comment on above: Order Comment: Speci men Type: BLOOD SPECIMENOrdering Facility: [facility] Address: [address] [place] [address] Performed By: #### 5 7021-8 ####[facility] LABORATORYCLIA [id number] [place] [id number] [place] Differential cell count method Nom (Bld) Auto Normal [facility] Comment on above: Order Comment: Speci men Type: BLOOD SPECIMENOrdering Facility: [facility] Address: [address] [place] [address] Performed By: #### 5 7021-8 ####[facility] LABORATORYCLIA [id number] [place] [address] [place] Eosinophils (Bld) [#/Vol] 0.17 10*3/uL Normal <0.46 [facility] Comment on above: Order Comment: Speci men Type: BLOOD SPECIMENOrdering Facility: [facility] Address: [address] [place] [address] Performed By: #### 5 7021-8 ####[facility] LABORATORYCLIA [id number] [place] [address] [place] Eosinophils/100 WBC (Bld) 3.5 % Normal [facility] Comment on above: Order Comment: Speci men Type: BLOOD SPECIMENOrdering Facility: [facility] Address: [address] [place] [address] Performed By: #### 5 7021-8 ####[facility] LABORATORYCLIA [id number] [address] [place] Erythrocyte distribution width (RBC) [Ratio] 12.5 % Normal 11.5-15.0 [facility] Comment on above: Order Comment: Speci men Type: BLOOD SPECIMENOrdering Facility: [facility] Address: [address] [place] [address] Performed By: #### 5 7021-8 ####[facility] LABORATORYCLIA [id number] [place] [id number] [place] Hematocrit (Bld) [Volume fraction] 28.8 % Low 39.0-51.0 [facility] Comment on above: Order Comment: Speci men Type: BLOOD SPECIMENOrdering Facility: [facility] Address: [address] [place] [address] Performed By: #### 5 7021-8 ####[facility] LABORATORYCLIA [id number] [place] [address] [place] Hemoglobin (Bld) [Mass/Vol] 9.9 g/dL Low 13.0-17.0 [facility] Comment on above: Order Comment: Speci men Type: BLOOD SPECIMENOrdering Facility: [facility] Address: [address] [place] [address] Performed By: #### 5 7021-8 ####[facility] LABORATORYCLIA [id number] [place] [id number] [place] Immature granulocytes (Bld) [#/Vol] 10*3/uL Normal <0.10 [facility] Comment on above: Order Comment: Speci men Type: BLOOD SPECIMENOrdering Facility: [facility] Address: [address] [place] [address] Performed By: #### 5 7021-8 ####[facility] LABORATORYCLIA [id number] [place] [id number] [place] Immature granulocytes/100 WBC (Bld) 0.4 % Normal [facility] Comment on above: Order Comment: Speci men Type: BLOOD SPECIMENOrdering Facility: [facility] Address: [address] [place] [address] Performed By: #### 5 7021-8 ####[facility] LABORATORYCLIA [id number] [place] [id number] [place] Lymphocytes (Bld) [#/Vol] 1.10 10*3/uL Normal 1.00-4.00 [facility] Comment on above: Order Comment: Speci men Type: BLOOD SPECIMENOrdering Facility: [facility] Address: [address] [place] [address] Performed By: #### 5 7021-8 ####[facility] LABORATORYCLIA [id number] [place] [id number] [place] Lymphocytes/100 WBC (Bld) 22.7 % Normal [facility] Comment on above: Order Comment: Speci men Type: BLOOD SPECIMENOrdering Facility: [facility] Address: [address] [place] [address] Performed By: #### 5 7021-8 ####[facility] LABORATORYCLIA [id number] [place] [id number] [place] MCH (RBC) [Entitic mass] 29.6 pg Normal 26.0-34.0 [facility] Comment on above: Order Comment: Speci men Type: BLOOD SPECIMENOrdering Facility: [facility] Address: [address] [place] [address] Performed By: #### 5 7021-8 ####[facility] LABORATORYCLIA [id number] [place] [id number] [place] MCHC (RBC) [Mass/Vol] 34.4 g/dL Normal 30.5-36.0 [facility] Comment on above: Order Comment: Speci men Type: BLOOD SPECIMENOrdering Facility: [facility] Address: [address] [place] [address] Performed By: #### 5 7021-8 ####[facility] LABORATORYCLIA [id number] [address] [place] MCV (RBC) [Entitic vol] 86.0 fL Normal 80.0-100.0 [facility] Comment on above: Order Comment: Speci men Type: BLOOD SPECIMENOrdering Facility: [facility] Address: [address] [place] [address] Performed By: #### 5 7021-8 ####[facility] LABORATORYCLIA [id number] [place] [id number] [place] Monocytes (Bld) [#/Vol] 0.86 10*3/uL Normal <0.87 [facility] Comment on above: Order Comment: Speci men Type: BLOOD SPECIMENOrdering Facility: [facility] Address: [address] [place] [address] Performed By: #### 5 7021-8 ####[facility] LABORATORYCLIA [id number] [address] Monocytes/100 WBC (Bld) 17.8 % Normal [facility] Comment on above: Order Comment: Speci men Type: BLOOD SPECIMENOrdering Facility: [facility] Address: [address] [place] [address] Performed By: #### 5 7021-8 ####[facility] LABORATORYCLIA [id number] [place] [id number] [place] Neutrophils (Bld) [#/Vol] 2.65 10*3/uL Normal 1.45-7.50 [facility] Comment on above: Order Comment: Speci men Type: BLOOD SPECIMENOrdering Facility: [facility] Address: [address] [place] [address] Performed By: #### 5 7021-8 ####[facility] LABORATORYCLIA [id number] [place] [id number] [place] Neutrophils/100 WBC (Bld) 54.8 % Normal [facility] Comment on above: Order Comment: Speci men Type: BLOOD SPECIMENOrdering Facility: [facility] Address: [address] [place] [address] Performed By: #### 5 7021-8 ####[facility] LABORATORYCLIA [id number] [place] [id number] [place] Nucleated RBC (Bld) [#/Vol] 10*3/uL Normal <0.01 [facility] Comment on above: Order Comment: Speci men Type: BLOOD SPECIMENOrdering Facility: [facility] Address: [address] [place] [address] Performed By: #### 5 7021-8 ####[facility] LABORATORYCLIA [id number] [place] [id number] [place] Nucleated RBC/100 WBC (Bld) [Ratio] 0.0 /100 WBC Normal [facility] Comment on above: Order Comment: Speci men Type: BLOOD SPECIMENOrdering Facility: [facility] Address: [address] [place] [address] Performed By: #### 5 7021-8 ####[facility] LABORATORYCLIA [id number] [place] [id number] [place] Platelet mean volume (Bld) [Entitic vol] 11.3 fL Normal 9.0-12.7 [facility] Comment on above: Order Comment: Speci men Type: BLOOD SPECIMENOrdering Facility: [facility] Address: [address] [place] [address] Performed By: #### 5 7021-8 ####[facility] LABORATORYCLIA [id number] [place] [id number] [facility] [place] Platelets (Bld) [#/Vol] 238 10*3/uL Normal 150-400 [facility] Comment on above: Order Comment: Speci men Type: BLOOD SPECIMENOrdering Facility: [facility] Address: [address] [place] [address] Performed By: #### 5 7021-8 ####[facility] LABORATORYCLIA [id number] [place] [id number] [place] RBC (Bld) [#/Vol] 3.35 10*6/uL Low 4.20-6.00 [facility] Comment on above: Order Comment: Speci men Type: BLOOD SPECIMENOrdering Facility: [facility] Address: [address] [place] [address] Performed By: #### 5 7021-8 ####[facility] LABORATORYCLIA [id number] [place] [id number] [place] WBC (Bld) [#/Vol] 4.84 10*3/uL Normal 3.70-11.00 [facility] Comment on above: Order Comment: Speci men Type: BLOOD SPECIMENOrdering Facility: [facility] Address: [address] [place] [address] Performed By: #### 5 7021-8 ####[facility] LABORATORYCLIA [id number] [place] [id number] [facility] [place] Hepatic function 2000 panelo n 09-01-2023 Albumin [Mass/Vol] 2.8 g/dL Low 3.9-4.9 [facility] Comment on above: Order Comment: Speci men Type: BLOOD SPECIMENOrdering Facility: [facility] Address: [address] [place] [address] Performed By: #### 1 9123-9, 29455-3, 2777-1, 20234-0 ####[facility] LABORATORYCLIA [id number] [place] [id number] [place] ALP [Catalytic activity/Vol] 107 U/L Normal 38-113 [facility] Comment on above: Order Comment: Speci men Type: BLOOD SPECIMENOrdering Facility: [facility] Address: [address] [place] [address] Performed By: #### 1 9123-9, 67913-8, 2777-1, 45545-2 ####[facility] LABORATORYCLIA [id number] [place] [id number] [place] ALT [Catalytic activity/Vol] 21 U/L Normal 10-54 [facility] Comment on above: Order Comment: Speci men Type: BLOOD SPECIMENOrdering Facility: [facility] Address: [address] [place] [address] Performed By: #### 1 9123-9, 94280-9, 7-1, 00191-6 ####[facility] LABORATORYCLIA [id number] [place] [address] [place] AST [Catalytic activity/Vol] 14 U/L Normal 14-40 [facility] Comment on above: Order Comment: Speci men Type: BLOOD SPECIMENOrdering Facility: [facility] Address: [address] [place] [address] Performed By: #### 1 9123-9, 30066-9, 7-1, 19178-2 ####[facility] LABORATORYCLIA [id number] [place] [id number] [place] Bilirubin [Mass/Vol] 0.4 mg/dL Normal 0.2-1.3 [facility] Comment on above: Order Comment: Speci men Type: BLOOD SPECIMENOrdering Facility: [facility] Address: [address] [place] [address] Performed By: #### 1 9123-9, 88638-0, 7-1, 42730-3 ####[facility] LABORATORYCLIA [id number] [place] [id number] [place] Bilirubin.conjugated [Mass/Vol] mg/dL Normal <0.2 [facility] Comment on above: Order Comment: Speci men Type: BLOOD SPECIMENOrdering Facility: [facility] Address: [address] [place] [address] Performed By: #### 1 9123-9, 73903-5, 2776-08, 08368-8 ####[facility] LABORATORYCLIA [id number] [place] [address] [place] Protein [Mass/Vol] 5.4 g/dL Low 6.3-8.0 [facility] Comment on above: Order Comment: Speci men Type: BLOOD SPECIMENOrdering Facility: [facility] Address: [place] [address] Performed By: #### 1 9123-9, 30040-8, 2776-08, 82544-4 ####[facility] LABORATORYCLIA [id number] [place] [address] [place] Magnesium SerPl-mCncon 09-01 Magnesium [Mass/Vol] 1.8 mg/dL Normal 1.7-2.3 [facility] Comment on above: Order Comment: Speci men Type: BLOOD SPECIMENOrdering Facility: [facility] Address: [place] [address] Performed By: #### 1 9123-9, 21684-3, 2776-08, ####[facility] LABORATORYCLIA [id number] [place] [id number] [place] NURSING PROGon 09-01-2023 NURSING PROG Normal [facility] NUTRITIONon 09-01-2023 NUTRITION Normal [facility] Phosphate SerPl-mCncon 09-01 Phosphate [Mass/Vol] 2.8 mg/dL Normal 2.7-4.8 [facility] Comment on above: Order Comment: Speci men Type: BLOOD SPECIMENOrdering Facility: [facility] Address: [place] [address] Performed By: #### 1 9123-9, 21172-0, 2776-, 78865-9 ####[facility] LABORATORYCLIA [id number] [place] [id number] [place] Albumin SerPl-mCncon 024 Albumin [Mass/Vol] 2.9 g/dL Low 3.9-4.9 [facility] Comment on above: Order Comment: Speci men Type: BLOOD SPECIMENOrdering Facility: [facility] Address: [place] [address] Performed By: #### 2 777-1, 01645-6, 1751-02, ####GE[facility] LABORATORYCLIA [id number] [place] [id number] [place] Basic metabolic 2000 panelon 08-31-2023 Anion gap [Moles/Vol] 10 mmol/L Normal 9-18 [facility] Comment on above: Order Comment: Speci men Type: BLOOD SPECIMENOrdering Facility: [facility] Address: [place] [address] Performed By: #### 2 777-1, 27307-0, 1751-02, ####[facility] LABORATORYCLIA [id number] [place] [id number] [place] Calcium [Mass/Vol] 8.3 mg/dL Low 8.5-10.2 [facility] Comment on above: Order Comment: Speci men Type: BLOOD SPECIMENOrdering Facility: [facility] Address: [place] [address] Performed By: #### 2 777-1, 42214-1, 1751-02, ####[facility] LABORATORYCLIA [id number] [place] [id number] [place] Chloride [Moles/Vol] 101 mmol/L Normal 97-105 [facility] Comment on above: Order Comment: Speci men Type: BLOOD SPECIMENOrdering Facility: [facility] Address: [place] [address] Performed By: #### 2 777-1, 56443-4, 1751-02, ####[facility] LABORATORYCLIA [id number] [place] [address] [place] CO2 [Moles/Vol] 23 mmol/L Normal 22-30 [facility] Comment on above: Order Comment: Speci men Type: BLOOD SPECIMENOrdering Facility: [facility] Address: [address] [address] Performed By: #### 2 777-1, 06804-5, 1751-02, ####[facility] LABORATORYCLIA [id number] [place] [address] [place] Creatinine [Mass/Vol] 1.22 mg/dL Normal 0.73-1.22 [facility] Comment on above: Order Comment: Speci men Type: BLOOD SPECIMENOrdering Facility: [facility] Address: [address] [place] [address] Performed By: #### 2 777-1, 50087-5, 1751-02, ####[facility] LABORATORYCLIA [id number] [place] [id number] [place] Creatinine and Glomerular filtration rate.predicted panel (S/P/Bld) 65 mL/min/1.73m??? Normal >=60 [facility] Comment on above: Order Comment: [facility]i [facility] Type: BLOOD SPECIMENOrdering Facility: [facility] Address: [address] [place] [address] Result Comment: Bailey mated Glomerular Filtration Rate [...] actual GFR. Performed By: #### 2 777-1, 96601-6, 1751-02, ####[facility] LABORATORYCLIA [id number] [place] [id number] [place] Glucose [Mass/Vol] 100 mg/dL High 74-99 [facility] Comment on above: Order Comment: Speci men Type: BLOOD SPECIMENOrdering Facility: [facility] Address: [address] [place] [address] Result Comment: The [place] [employer] (ADA) provides guidance for cutoff [...] Standards of Medical Care in Diabetes 2016, [place] [employer]. Diabetes Care. 2016.39(Suppl 1). Performed By: #### 2 777-1, 00226-6, 1751-02, ####[facility] LABORATORYCLIA [id number] [place] [address] [place] Potassium [Moles/Vol] 3.5 mmol/L Low 3.7-5.1 [facility] Comment on above: Order Comment: Speci men Type: BLOOD SPECIMENOrdering Facility: [facility] Address: [address] [place] [address] Performed By: #### 2 777-1, 80841-9, 1751-02, ####[facility] LABORATORYCLIA [id number] [place] [id number] [place] Sodium [Moles/Vol] 134 mmol/L Low 136-144 [facility] Comment on above: Order Comment: Speci men Type: BLOOD SPECIMENOrdering Facility: [facility] Address: [address] [place] [address] Performed By: #### 2 777-1, 44327-1, 1751-02, ####[facility] LABORATORYCLIA [id number] [place] [id number] [place] Urea nitrogen [Mass/Vol] 39 mg/dL High 9-24 [facility] Comment on above: Order Comment: Speci men Type: BLOOD SPECIMENOrdering Facility: [facility] Address: [address] [place] [address] Performed By: #### 2 777-1, 11337-4, 1751-02, ####[facility] LABORATORYCLIA [id number] [place] [id number] [place] CASE MANAGEMon 08-31-2023 CASE MANAGEM Normal [facility] Magnesium SerPl-mCncon 08-31 Magnesium [Mass/Vol] 1.7 mg/dL Normal 1.7-2.3 [facility] Comment on above: Order Comment: Speci men Type: BLOOD SPECIMENOrdering Facility: [facility] Address: [address] [place] [address] Performed By: #### 2 777-1, 98351-5, 1751-02, ####[facility] LABORATORYCLIA [id number] [place] [id number] [place] Phosphate SerPl-mCncon 08-31 Phosphate [Mass/Vol] 2.6 mg/dL Low 2.7-4.8 [facility] Comment on above: Order Comment: Speci men Type: BLOOD SPECIMENOrdering Facility: [facility] Address: [address] [place] [address] Performed By: #### 2 777-1, 85217-5, 1751-02, ####[facility] LABORATORYCLIA [id number] [place] [id number] [place] Albumin SerPl-mCncon 024 Albumin [Mass/Vol] 3.1 g/dL Low 3.9-4.9 [facility] Comment on above: Order Comment: Speci men Type: BLOOD SPECIMENOrdering Facility: [facility] Address: [address] [place] [address] Performed By: #### 2 4321-2, 95788-1, 1751-02, 2776-08 ####[facility] LABORATORYCLIA [id number] [place] [id number] [place] Basic metabolic 2000 panelon 08-30-2023 Anion gap [Moles/Vol] 11 mmol/L Normal 9-18 [facility] Comment on above: Order Comment: Speci men Type: BLOOD SPECIMENOrdering Facility: [facility] Address: [address] [place] [id number] Performed By: #### 2 4321-2, , 1751-02, 2776-08 ####GE[facility] LABORATORYCLIA [id number] [place] [address] [place] Calcium [Mass/Vol] 8.1 mg/dL Low 8.5-10.2 [facility] Comment on above: Order Comment: Speci men Type: BLOOD SPECIMENOrdering Facility: [facility] Address: [address] [place] [address] Performed By: #### 2 4321-2, , 1751-02, 2776-08 ####[facility] LABORATORYCLIA [id number] [place] [id number] [place] Chloride [Moles/Vol] 106 mmol/L High 97-105 [facility] Comment on above: Order Comment: Speci men Type: BLOOD SPECIMENOrdering Facility: [facility] Address: [address] [place] [address] Performed By: #### 2 4321-2, , 1751-02, 2776-08 ####[facility] LABORATORYCLIA [id number] [place] [id number] [place] CO2 [Moles/Vol] 17 mmol/L Low 22-30 [facility] Comment on above: Order Comment: Speci men Type: BLOOD SPECIMENOrdering Facility: [facility] Address: [address] [place] [place] [id number] Performed By: #### 2 1-2, , 1751-02, 2776-08 ####[facility] LABORATORYCLIA [id number] [place] [id number] [place] Creatinine [Mass/Vol] 1.39 mg/dL High 0.73-1.22 [facility] Comment on above: Order Comment: Speci men Type: BLOOD SPECIMENOrdering Facility: [facility] Address: [place] [address] Performed By: #### 2 4320-2, , 1751-02, 2776-08 ####[facility] LABORATORYCLIA [id number] [place] [id number] [place] Creatinine and Glomerular filtration rate.predicted panel (S/P/Bld) 55 mL/min/1.73m??? Low >=60 [facility] Comment on above: Order Comment: Arben suarez Type: BLOOD SPECIMENOrdering Facility: [facility] Address: [address] [place] [address] Result Comment: Bailey mated Glomerular Filtration Rate [...] By: #### 2 4321-2, , 1751-02, 2776-08 ####[facility] LABORATORYCLIA [id number] [place] [id number] [place] Glucose [Mass/Vol] 107 mg/dL High 74-99 [facility] Comment on above: Order Comment: Arben suarez Type: BLOOD SPECIMENOrdering Facility: [facility] Address: [address] [place] [address] Result Comment: The [place] Diabetes [employer] (ADA) provides guidance for cutoff [...] Standards of Medical Care in Diabetes 2016, [place] [employer]. Diabetes Care. 2016.39(Suppl 1). Performed By: #### 2 4321-2, , 1751-02, 2776-08 ####[facility] LABORATORYCLIA [id number] [place] [id number] [place] Potassium [Moles/Vol] 3.6 mmol/L Low 3.7-5.1 [facility] Comment on above: Order Comment: Speci men Type: BLOOD SPECIMENOrdering Facility: [facility] Address: [address] [place] [address] Performed By: #### 2 4321-2, 08609-9, 1751-02, 277-1 ####[facility] LABORATORYCLIA [id number] [place] [id number] [place] Sodium [Moles/Vol] 134 mmol/L Low 136-144 [facility] Comment on above: Order Comment: Speci men Type: BLOOD SPECIMENOrdering Facility: [facility] Address: [address] [place] [address] Performed By: #### 2 4321-2, , 1751-02, 277- ####[facility] LABORATORYCLIA [id number] [place] [id number] [place] Urea nitrogen [Mass/Vol] 46 mg/dL High 9-24 [facility] Comment on above: Order Comment: Speci men Type: BLOOD SPECIMENOrdering Facility: [facility] Address: [address] [place] [address] Performed By: #### 2 4321-2, , 1751-02, 277-1 ####[facility] LABORATORYCLIA [id number] [place] [id number] [place] CBC panel Auto (Bld)on 08-30 Erythrocyte distribution width (RBC) [Ratio] 12.4 % Normal 11.5-15.0 [facility] Comment on above: Order Comment: Speci men Type: BLOOD SPECIMENOrdering Facility: [facility] Address: [address] [place] [address] Performed By: #### 5 8410-2 ####[facility] LABORATORYCLIA [id number] [place] [id number] [place] Hematocrit (Bld) [Volume fraction] 32.1 % Low 39.0-51.0 [facility] Comment on above: Order Comment: Speci men Type: BLOOD SPECIMENOrdering Facility: [facility] Address: [address] [place] [address] Performed By: #### 5 8410-2 ####[facility] LABORATORYCLIA [id number] [address] OF [facility] Hemoglobin (Bld) [Mass/Vol] 11.0 g/dL Low 13.0-17.0 [facility] Comment on above: Order Comment: Speci men Type: BLOOD SPECIMENOrdering Facility: [facility] Address: [address] [place] [address] Performed By: #### 5 8410-2 ####[facility] LABORATORYCLIA [id number] [address] MCH (RBC) [Entitic mass] 29.3 pg Normal 26.0-34.0 [facility] Comment on above: Order Comment: Speci men Type: BLOOD SPECIMENOrdering Facility: [facility] Address: [address] [place] [address] Performed By: #### 5 8410-2 ####[facility] LABORATORYCLIA [id number] [address] MCHC (RBC) [Mass/Vol] 34.3 g/dL Normal 30.5-36.0 [facility] Comment on above: Order Comment: Speci men Type: BLOOD SPECIMENOrdering Facility: [facility] Address: [address] [place] [address] Performed By: #### 5 8410-2 ####[facility] LABORATORYCLIA [id number] [address] [place] MCV (RBC) [Entitic vol] 85.6 fL Normal 80.0-100.0 [facility] Comment on above: Order Comment: Speci men Type: BLOOD SPECIMENOrdering Facility: [facility] Address: [address] [place] [address] Performed By: #### 5 8410-2 ####[facility] LABORATORYCLIA [id number] [place] [address] [place] Nucleated RBC (Bld) [#/Vol] 10*3/uL Normal <0.01 [facility] Comment on above: Order Comment: Speci men Type: BLOOD SPECIMENOrdering Facility: [facility] Address: [address] [place] [address] Performed By: #### 5 8410-2 ####[facility] LABORATORYCLIA [id number] [place] [address] [place] Platelet mean volume (Bld) [Entitic vol] 10.6 fL Normal 9.0-12.7 [facility] Comment on above: Order Comment: Speci men Type: BLOOD SPECIMENOrdering Facility: [facility] Address: [address] [place] [address] Performed By: #### 5 8410-2 ####[facility] LABORATORYCLIA [id number] [place] [address] [place] Platelets (Bld) [#/Vol] 306 10*3/uL Normal 150-400 [facility] Comment on above: Order Comment: Speci men Type: BLOOD SPECIMENOrdering Facility: [facility] Address: [address] [place] [address] Performed By: #### 5 8410-2 ####[facility] LABORATORYCLIA [id number] [place] [address] [place] RBC (Bld) [#/Vol] 3.75 10*6/uL Low 4.20-6.00 [facility] Comment on above: Order Comment: Speci men Type: BLOOD SPECIMENOrdering Facility: [facility] Address: [address] [place] [address] Performed By: #### 5 8410-2 ####[facility] LABORATORYCLIA [id number] [place] [address] [place] WBC (Bld) [#/Vol] 6.84 10*3/uL Normal 3.70-11.00 [facility] Comment on above: Order Comment: Speci men Type: BLOOD SPECIMENOrdering Facility: [facility] Address: [address] [place] [address] Performed By: #### 5 8410-2 ####[facility] LABORATORYCLIA [id number] [place] [id number] [place] CONSULT PROGon 08-30-2023 CONSULT PROG Normal [facility] Lactate (Bld) [Moles/Vol]on 08-30-2023 Lactate [Moles/Vol] 0.6 mmol/L Normal 0.5-2.2 [facility] Comment on above: Order Comment: Speci men Type: BLOOD SPECIMENOrdering Facility: [facility] Address: [address] [place] [address] Performed By: #### 3 2693-4 ####[facility] LABORATORYCLIA [id number] [place] [id number] [place] Magnesium SerPl-ncon 08-30 Magnesium [Mass/Vol] 2.0 mg/dL Normal 1.7-2.3 [facility] Comment on above: Order Comment: Speci men Type: BLOOD SPECIMENOrdering Facility: [facility] Address: [address] [place] [address] Performed By: #### 2 4321-2, 72700-3, 1751-02, 2776-1 ####[facility] LABORATORYCLIA [id number] [place] [id number] [place] NURSING PROGon 08-30-2023 NURSING PROG Normal [facility] NUTRITIONon 08-30-2023 NUTRITION Normal [facility] Phosphate SerPl-mCncon 08-30 Phosphate [Mass/Vol] 3.1 mg/dL Normal 2.7-4.8 [facility] Comment on above: Order Comment: Speci men Type: BLOOD SPECIMENOrdering Facility: [facility] Address: [address] [place] [place] [address] Performed By: #### 2 4321-2, 30773-0, 1751-02, 2776-1 ####[facility] LABORATORYCLIA [id number] [place] [id number] [place] Basic metabolic 2000 panelon 08-29-2023 Anion gap [Moles/Vol] 18 mmol/L Normal 9-18 [facility] Comment on above: Order Comment: Speci men Type: BLOOD SPECIMENOrdering Facility: [facility] Address: [address] [place] [address] Performed By: #### 2 4321-2, 2777-1, 42360-2, ####[facility] LABORATORYCLIA [id number] [place] [address] [place] Calcium [Mass/Vol] 9.0 mg/dL Normal 8.5-10.2 [facility] Comment on above: Order Comment: Speci men Type: BLOOD SPECIMENOrdering Facility: [facility] Address: [address] [place] [address] Performed By: #### 2 4321-2, 2777-1, 21385-5, ####[facility] LABORATORYCLIA [id number] [place] [id number] [place] Chloride [Moles/Vol] 107 mmol/L High 97-105 [facility] Comment on above: Order Comment: Speci men Type: BLOOD SPECIMENOrdering Facility: [facility] Address: [address] [address] Performed By: #### 2 4321-2, 2777-1, 92744-4, ####[facility] LABORATORYCLIA [id number] [place] [id number] [place] CO2 [Moles/Vol] 8 mmol/L Low 22-30 [facility] Comment on above: Order Comment: Speci men Type: BLOOD SPECIMENOrdering Facility: [facility] Address: [address] [place] [address] Performed By: #### 2 4321-2, 2777-1, 02213-9, ####[facility] LABORATORYCLIA [id number] [place] [id number] [place] Creatinine [Mass/Vol] 1.98 mg/dL High 0.73-1.22 [facility] Comment on above: Order Comment: Speci men Type: BLOOD SPECIMENOrdering Facility: [facility] Address: [address] [place] [address] Performed By: #### 2 4321-2, 2777-1, 42954-1, 28614-0 ####[facility]ORATORYCLIA [id number] [place] [id number] [place] Creatinine and Glomerular filtration rate.predicted panel (S/P/Bld) 36 mL/min/1.73m??? Low >=60 [facility] Comment on above: Order Comment: Arben suarez Type: BLOOD SPECIMENOrdering Facility: [facility] Address: [address] [place] [address] Result Comment: Bailey mated Glomerular Filtration Rate [...] GFR. Performed By: #### 2 4321-2, 2777-1, 33751-2, 44564-6 ####[facility]ORATORYCLIA [id number] [place] [id number] [place] Glucose [Mass/Vol] 134 mg/dL High 74-99 [facility] Comment on above: Order Comment: Arben suarez Type: BLOOD SPECIMENOrdering Facility: [facility] Address: [address] [place] [address] Result Comment: The [place] [employer] (ADA) provides guidance for cutoff [...] Standards of Medical Care in Diabetes 2016, [place] [employer]. Diabetes Care. 2016.39(Suppl 1). Performed By: #### 2 4321-2, 2777-1, 15536-4, ####[facility] LABORATORYCLIA [id number] [place] [address] [place] Potassium [Moles/Vol] 4.9 mmol/L Normal 3.7-5.1 [facility] Comment on above: Order Comment: Speci men Type: BLOOD SPECIMENOrdering Facility: [facility] Address: [address] [place] [address] Performed By: #### 2 4321-2, 2777-1, 29078-7, ####[facility]ORATORYCLIA [id number] [place] [id number] [place] Sodium [Moles/Vol] 133 mmol/L Low 136-144 [facility] Comment on above: Order Comment: Speci men Type: BLOOD SPECIMENOrdering Facility: [facility] Address: [address] [place] [address] Performed By: #### 2 4321-2, 2777-1, 98285-7, ####[facility]ORATORYCLIA [id number] [place] [id number] [place] Urea nitrogen [Mass/Vol] 68 mg/dL High 9-24 [facility] Comment on above: Order Comment: Speci men Type: BLOOD SPECIMENOrdering Facility: [facility] Address: [address] [place] [address] Performed By: #### 2 4321-2, 2777-1, 42342-1, ####[facility]ORATORYCLIA [id number] [place] [id number] [place] CBC panel Auto (Bld)on 08-29 Erythrocyte distribution width (RBC) [Ratio] 12.2 % Normal 11.5-15.0 [facility] Comment on above: Order Comment: Speci men Type: BLOOD SPECIMENOrdering Facility: [facility] Address: [address] [place] [address] Performed By: #### 5 8410-2 ####[facility] LABORATORYCLIA [id number] [place] [id number] [place] Hematocrit (Bld) [Volume fraction] 37.9 % Low 39.0-51.0 [facility] Comment on above: Order Comment: Speci men Type: BLOOD SPECIMENOrdering Facility: [facility] Address: [address] [place] [address] Performed By: #### 5 8410-2 ####[facility] LABORATORYCLIA [id number] [place] [id number] [place] Hemoglobin (Bld) [Mass/Vol] 12.9 g/dL Low 13.0-17.0 [facility] Comment on above: Order Comment: Speci men Type: BLOOD SPECIMENOrdering Facility: [facility] Address: [address] [place] [address] Performed By: #### 5 8410-2 ####[facility] LABORATORYCLIA [id number] [address] MCH (RBC) [Entitic mass] 29.7 pg Normal 26.0-34.0 [facility] Comment on above: Order Comment: Speci men Type: BLOOD SPECIMENOrdering Facility: [facility] Address: [address] [place] [address] Performed By: #### 5 8410-2 ####[facility] LABORATORYCLIA [id number] [address] MCHC (RBC) [Mass/Vol] 34.0 g/dL Normal 30.5-36.0 [facility] Comment on above: Order Comment: Speci men Type: BLOOD SPECIMENOrdering Facility: [facility] Address: [address] [place] [address] Performed By: #### 5 8410-2 ####[facility] LABORATORYCLIA [id number] [address] STATES [facility] MCV (RBC) [Entitic vol] 87.3 fL Normal 80.0-100.0 [facility] Comment on above: Order Comment: Speci men Type: BLOOD SPECIMENOrdering Facility: [facility] Address: [address] [place] [address] Performed By: #### 5 8410-2 ####[facility] LABORATORYCLIA [id number] [place] [id number] [place] Nucleated RBC (Bld) [#/Vol] 10*3/uL Normal <0.01 [facility] Comment on above: Order Comment: Speci men Type: BLOOD SPECIMENOrdering Facility: [facility] Address: [address] [place] [address] Performed By: #### 5 8410-2 ####[facility] LABORATORYCLIA [id number] [place] [address] [place] Platelet mean volume (Bld) [Entitic vol] 10.5 fL Normal 9.0-12.7 [facility] Comment on above: Order Comment: Speci men Type: BLOOD SPECIMENOrdering Facility: [facility] Address: [address] [place] [address] Performed By: #### 5 8410-2 ####[facility] LABORATORYCLIA [id number] [place] [address] [place] Platelets (Bld) [#/Vol] 356 10*3/uL Normal 150-400 [facility] Comment on above: Order Comment: Speci men Type: BLOOD SPECIMENOrdering Facility: [facility] Address: [address] [place] [address] Performed By: #### 5 8410-2 ####[facility] LABORATORYCLIA [id number] [place] [address] [place] RBC (Bld) [#/Vol] 4.34 10*6/uL Normal 4.20-6.00 [facility] Comment on above: Order Comment: Speci men Type: BLOOD SPECIMENOrdering Facility: [facility] Address: [address] [place] [address] Performed By: #### 5 8410-2 ####[facility] LABORATORYCLIA [id number] [place] [address] [place] WBC (Bld) [#/Vol] 6.11 10*3/uL Normal 3.70-11.00 [facility] Comment on above: Order Comment: Speci men Type: BLOOD SPECIMENOrdering Facility: [facility] Address: [address] [place] [address] Performed By: #### 5 8410-2 ####[facility] LABORATORYCLIA [id number] [place] [id number] [place] HIGH SENSITIVITY TROPONIN T (THIRD) 3 HRS AFTER INITIALon 08-29-2023 Troponin T.cardiac High sensitivity method [Mass/Vol] 32 ng/L High <12 [facility] Comment on above: Order Comment: Speci men Type: BLOOD SPECIMENOrdering Facility: [facility] Address: [address] [place] [address] Result Comment: When assessing risk for acute [...] 30 day MACE. Performed By: #### L [id number] ####[facility] LABORATORYCLIA [id number] [place] [id number] [place] Iron and Iron binding capaci ty panelon 08-29-2023 Iron [Mass/Vol] 170 ug/dL Normal 41-186 [facility] Comment on above: Order Comment: Miai men Type: BLOOD SPECIMENOrdering Facility: [facility] Address: [place] [address] Performed By: #### 2 4321-2, 2777-1, 97801-9, ####[facility] LABORATORYCLIA [id number] [place] [id number] [place] Iron binding capacity [Mass/Vol] 331 ug/dL Normal 232-386 [facility] Comment on above: Order Comment: Speci men Type: BLOOD SPECIMENOrdering Facility: [facility] Address: [address] [place] [address] Performed By: #### 2 4321-2, 2777-1, 53454-2, 48361-0 ####[facility] LABORATORYCLIA [id number] [place] [id number] [place] Iron/TIBC [Molar ratio] 51.4 % Normal 20.0-55.0 [facility] Comment on above: Order Comment: Speci men Type: BLOOD SPECIMENOrdering Facility: [facility] Address: [place] [address] Performed By: #### 2 4321-2, 2777-1, 61188-9, 33894-4 ####[facility]ORATORYCLIA [id number] [place] [id number] [place] Lactate (Bld) [Moles/Vol]on 08-29-2023 Lactate [Moles/Vol] 1.1 mmol/L Normal 0.5-2.2 [facility] Comment on above: Order Comment: Speci men Type: BLOOD SPECIMENOrdering Facility: [facility] Address: [place] [address] Performed By: #### 3 2693-4 ####[facility] LABORATORYCLIA [id number] [place] [id number] [place] Magnesium SerPl-mCncon 08-29 Magnesium [Mass/Vol] 2.6 mg/dL High 1.7-2.3 [facility] Comment on above: Order Comment: Speci men Type: BLOOD SPECIMENOrdering Facility: [facility] Address: [place] [address] Performed By: #### 2 4321-2, 2777-1, 07555-5, ####[facility]ORATORYCLIA [id number] [place] [id number] [place] NURSING PROGon 08-29-2023 NURSING PROG Normal [facility] NUTRITIONon 08-29-2023 NUTRITION Normal [facility] NUTRITION Normal [facility] PT EDon 08-29-2023 PT ED Normal [facility] Phosphate SerPl-mCncon 08-29 Phosphate [Mass/Vol] 4.7 mg/dL Normal 2.7-4.8 [facility] Comment on above: Order Comment: Speci men Type: BLOOD SPECIMENOrdering Facility: [facility] Address: [place] [address] Performed By: #### 2 4321-2, 2777-1, 31746-4, 96607-6 ####[facility] LABORATORYCLIA [id number] [place] [address] [place] Prealb SerPl-mCncon 08-29-19 24 Prealbumin [Mass/Vol] 26 mg/dL Normal 17-36 [facility] Comment on above: Order Comment: Speci men Type: BLOOD SPECIMENOrdering Facility: [facility] Address: [address] [place] [address] Performed By: #### 1 4338-8, 3034-6 ####[facility] LABCLIA [id number] [place] [address] [place] Transferrin SerPl-mCncon Transferrin [Mass/Vol] 271 mg/dL Normal 200-360 [facility] Comment on above: Order Comment: Speci men Type: BLOOD SPECIMENOrdering Facility: [facility] Address: [address] [place] [address] Performed By: #### 1 4338-8, 303-6 ####[facility] LABCLIA [id number] [place] [address] [place] Urinalysis complete panel (U )on 08-29-2023 Bacteria LM.HPF (Urine sed) [#/Area] Rare Abnormal None Seen [facility] Comment on above: Order Comment: Speci men Type: URINE SPECIMENOrdering Facility: [facility] Address: [address] [place] [address] Performed By: #### 2 4356-8 ####[facility] LABORATORYCLIA [id number] [place] [address] [place] Bilirubin Ql (U) Negative Normal Negative [facility] Comment on above: Order Comment: Speci men Type: URINE SPECIMENOrdering Facility: [facility] Address: [address] [place] [address] Performed By: #### 2 4356-8 ####[facility] LABORATORYCLIA [id number] [place] [address] [place] Clarity (Unsp spec) Clear Normal Clear [facility] Comment on above: Order Comment: Speci men Type: URINE SPECIMENOrdering Facility: [facility] Address: [address] [place] [address] Performed By: #### 2 4356-8 ####[facility] LABORATORYCLIA [id number] [place] [address] [place] Color (U) Light Yellow Normal Yellow [facility] Comment on above: Order Comment: Speci men Type: URINE SPECIMENOrdering Facility: [facility] Address: [address] [place] [address] Performed By: #### 2 4356-8 ####[facility] LABORATORYCLIA [id number] [place] [address] [place] Glucose Test strip (U) [Mass/Vol] Negative Normal Trace, Negative [facility] Comment on above: Order Comment: Speci men Type: URINE SPECIMENOrdering Facility: [facility] Address: [address] [place] [address] Performed By: #### 2 4356-8 ####[facility] LABORATORYCLIA [id number] [place] [address] [place] Hemoglobin Ql (U) Negative Normal Negative, Trace [facility] Comment on above: Order Comment: Speci men Type: URINE SPECIMENOrdering Facility: [facility] Address: [address] [place] [address] Performed By: #### 2 4356-8 ####[facility] LABORATORYCLIA [id number] [place] [address] [place] Ketones Ql (U) Negative Normal Negative, Trace [facility] Comment on above: Order Comment: Speci men Type: URINE SPECIMENOrdering Facility: [facility] Address: [address] [place] [address] Performed By: #### 2 4356-8 ####[facility]ORATORYCLIA [id number] [place] [address] [place] Leukocyte esterase Test strip Ql (U) Negative Normal Negative, 25 Angle/uL [facility] Comment on above: Order Comment: Speci men Type: URINE SPECIMENOrdering Facility: [facility] Address: [address] [place] [address] Performed By: #### 2 4356-8 ####[facility]ORATORYCLIA [id number] [place] [id number] [place] Nitrite Ql (U) Negative Normal Negative [facility] Comment on above: Order Comment: Speci men Type: URINE SPECIMENOrdering Facility: [facility] Address: [address] [place] [address] Performed By: #### 2 4356-8 ####[facility] LABORATORYCLIA [id number] [place] [address] [place] pH (U) 5.0 [pH] Normal 5.0-8.0 [facility] Comment on above: Order Comment: Speci men Type: URINE SPECIMENOrdering Facility: [facility] Address: [address] [place] [address] Performed By: #### 2 4356-8 ####[facility] LABORATORYCLIA [id number] [place] [address] [place] Protein (U) [Mass/Vol] Trace Normal Trace , Negative [facility] Comment on above: Order Comment: Speci men Type: URINE SPECIMENOrdering Facility: [facility] Address: [address] [place] [address] Performed By: #### 2 4356-8 ####[facility] LABORATORYCLIA [id number] [place] [id number] [place] RBC LM.HPF (Urine sed) [#/Area] 0-3 /HPF Normal 0-3 /HPF [facility] Comment on above: Order Comment: Speci men Type: URINE SPECIMENOrdering Facility: [facility] Address: [address] [place] [address] Performed By: #### 2 4356-8 ####[facility]ORATORYCLIA [id number] [place] [id number] [place] Specific gravity (U) [Rel density] 1.013 Normal 1.005-1.03 0 [facility] Comment on above: Order Comment: Speci men Type: URINE SPECIMENOrdering Facility: [facility] Address: [address] [place] [address] Performed By: #### 2 4356-8 ####[facility]ORATORYCLIA [id number] [place] [id number] [place] URIC ACID CRYSTALS (UA) Moderate Abnormal None Seen [facility] Comment on above: Order Comment: Speci men Type: URINE SPECIMENOrdering Facility: [facility] Address: [address] [place] [address] Performed By: #### 2 4356-8 ####[facility] LABORATORYCLIA [id number] [place] [address] [place] Urobilinogen Ql (U) Negative Normal Negative [facility] Comment on above: Order Comment: Speci men Type: URINE SPECIMENOrdering Facility: [facility] Address: [address] [place] [address] Performed By: #### 2 4356-8 ####[facility]ORATORYCLIA [id number] [place] [address] [place] WBC LM.HPF (Urine sed) [#/Area] 0-5 /HPF Normal 0-5 /HPF [facility] Comment on above: Order Comment: Speci men Type: URINE SPECIMENOrdering Facility: [facility] Address: [address] [place] [address] Performed By: #### 2 4356-8 ####[facility]ORATORYCLIA [id number] [place] [id number] [place] ALLIED HEALTHon 08-28-2023 ALLIED HEALTH Normal [facility] Bacteria Bld Culton 08-28-19 24 Bacteria identified Cx Nom (Bld) CULTURE, BLOOD: No growth 5 days Normal [facility] Comment on above: Performed By: #### 6 00-7 ####[facility] LABCLIA [id number] [place] [address] [place] CASE MGT INIT ASSESon 2023 CASE MGT INIT ASSES Normal [facility] CBC W Auto Differential pane l (Bld)on 08-28-2023 Basophils (Bld) [#/Vol] 0.03 10*3/uL Normal <0.11 [facility] Comment on above: Order Comment: Speci men Type: BLOOD SPECIMENOrdering Facility: [facility] Address: [address] [place] [address] Performed By: #### 5 7021-8 ####[facility] LABORATORYCLIA [id number] [place] [address] [place] Basophils/100 WBC (Bld) 0.3 % Normal [facility] Comment on above: Order Comment: Speci men Type: BLOOD SPECIMENOrdering Facility: [facility] Address: [address] [place] [address] Performed By: #### 5 7021-8 ####[facility] LABORATORYCLIA [id number] [address] [place] Differential cell count method Nom (Bld) Auto Normal [facility] Comment on above: Order Comment: Speci men Type: BLOOD SPECIMENOrdering Facility: [facility] Address: [address] [place] [address] Performed By: #### 5 7021-8 ####[facility] LABORATORYCLIA [id number] [place] [address] [place] Eosinophils (Bld) [#/Vol] 0.06 10*3/uL Normal <0.46 [facility] Comment on above: Order Comment: Speci men Type: BLOOD SPECIMENOrdering Facility: [facility] Address: [address] [place] [address] Performed By: #### 5 7021-8 ####[facility] LABORATORYCLIA [id number] [address] [place] Eosinophils/100 WBC (Bld) 0.6 % Normal [facility] Comment on above: Order Comment: Speci men Type: BLOOD SPECIMENOrdering Facility: [facility] Address: [address] [place] [address] Performed By: #### 5 7021-8 ####[facility] LABORATORYCLIA [id number] [place] [address] [place] Erythrocyte distribution width (RBC) [Ratio] 12.3 % Normal 11.5-15.0 [facility] Comment on above: Order Comment: Speci men Type: BLOOD SPECIMENOrdering Facility: [facility] Address: [address] [place] [address] Performed By: #### 5 7021-8 ####[facility] LABORATORYCLIA [id number] [place] [address] [place] Hematocrit (Bld) [Volume fraction] 42.0 % Normal 39.0-51.0 [facility] Comment on above: Order Comment: Speci men Type: BLOOD SPECIMENOrdering Facility: [facility] Address: [address] [place] [address] Performed By: #### 5 7021-8 ####[facility] LABORATORYCLIA [id number] [place] [address] [place] Hemoglobin (Bld) [Mass/Vol] 14.3 g/dL Normal 13.0-17.0 [facility] Comment on above: Order Comment: Speci men Type: BLOOD SPECIMENOrdering Facility: [facility] Address: [address] [place] [address] Performed By: #### 5 7021-8 ####[facility] LABORATORYCLIA [id number] [place] [address] [place] Immature granulocytes (Bld) [#/Vol] 0.16 10*3/uL High <0.10 [facility] Comment on above: Order Comment: Speci men Type: BLOOD SPECIMENOrdering Facility: [facility] Address: [address] [place] [address] Performed By: #### 5 7021-8 ####[facility] LABORATORYCLIA [id number] [place] [address] [place] Immature granulocytes/100 WBC (Bld) 1.6 % Normal [facility] Comment on above: Order Comment: Speci men Type: BLOOD SPECIMENOrdering Facility: [facility] Address: [address] [place] [address] Performed By: #### 5 7021-8 ####[facility] LABORATORYCLIA [id number] [place] [address] [place] Lymphocytes (Bld) [#/Vol] 1.27 10*3/uL Normal 1.00-4.00 [facility] Comment on above: Order Comment: Speci men Type: BLOOD SPECIMENOrdering Facility: [facility] Address: [address] [place] [address] Performed By: #### 5 7021-8 ####[facility] LABORATORYCLIA [id number] [address] STATES [facility] Lymphocytes/100 WBC (Bld) 12.7 % Normal [facility] Comment on above: Order Comment: Speci men Type: BLOOD SPECIMENOrdering Facility: [facility] Address: [address] [place] [address] Performed By: #### 5 7021-8 ####[facility] LABORATORYCLIA [id number] [address] [place] MCH (RBC) [Entitic mass] 29.5 pg Normal 26.0-34.0 [facility] Comment on above: Order Comment: Speci men Type: BLOOD SPECIMENOrdering Facility: [facility] Address: [address] [place] [address] Performed By: #### 5 7021-8 ####[facility] LABORATORYCLIA [id number] [address] STATES [facility] MCHC (RBC) [Mass/Vol] 34.0 g/dL Normal 30.5-36.0 [facility] Comment on above: Order Comment: Speci men Type: BLOOD SPECIMENOrdering Facility: [facility] Address: [address] [place] [address] Performed By: #### 5 7021-8 ####[facility] LABORATORYCLIA [id number] [address] [place] MCV (RBC) [Entitic vol] 86.8 fL Normal 80.0-100.0 [facility] Comment on above: Order Comment: Speci men Type: BLOOD SPECIMENOrdering Facility: [facility] Address: [address] [place] [address] Performed By: #### 5 7021-8 ####[facility] LABORATORYCLIA [id number] [place] [id number] [place] Monocytes (Bld) [#/Vol] 0.52 10*3/uL Normal <0.87 [facility] Comment on above: Order Comment: Speci men Type: BLOOD SPECIMENOrdering Facility: [facility] Address: [address] [place] [address] Performed By: #### 5 7021-8 ####[facility] LABORATORYCLIA [id number] [place] [address] [place] Monocytes/100 WBC (Bld) 5.2 % Normal [facility] Comment on above: Order Comment: Speci men Type: BLOOD SPECIMENOrdering Facility: [facility] Address: [address] [place] [address] Performed By: #### 5 7021-8 ####[facility] LABORATORYCLIA [id number] [place] [address] [place] Neutrophils (Bld) [#/Vol] 7.97 10*3/uL High 1.45-7.50 [facility] Comment on above: Order Comment: Speci men Type: BLOOD SPECIMENOrdering Facility: [facility] Address: [address] [place] [address] Performed By: #### 5 7021-8 ####[facility] LABORATORYCLIA [id number] [address] [place] Neutrophils/100 WBC (Bld) 79.6 % Normal [facility] Comment on above: Order Comment: Speci men Type: BLOOD SPECIMENOrdering Facility: [facility] Address: [address] [place] [address] Performed By: #### 5 7021-8 ####[facility] LABORATORYCLIA [id number] [place] [id number] [place] Nucleated RBC (Bld) [#/Vol] 10*3/uL Normal <0.01 [facility] Comment on above: Order Comment: Speci men Type: BLOOD SPECIMENOrdering Facility: [facility] Address: [address] [place] [address] Performed By: #### 5 7021-8 ####[facility] LABORATORYCLIA [id number] [place] [id number] [place] Nucleated RBC/100 WBC (Bld) [Ratio] 0.0 /100 WBC Normal [facility] Comment on above: Order Comment: Speci men Type: BLOOD SPECIMENOrdering Facility: [facility] Address: [address] [place] [address] Performed By: #### 5 7021-8 ####[facility] LABORATORYCLIA [id number] [place] [address] [place] Platelet mean volume (Bld) [Entitic vol] 10.4 fL Normal 9.0-12.7 [facility] Comment on above: Order Comment: Speci men Type: BLOOD SPECIMENOrdering Facility: [facility] Address: [address] [place] [address] Performed By: #### 5 7021-8 ####[facility] LABORATORYCLIA [id number] [place] [id number] [place] Platelets (Bld) [#/Vol] 529 10*3/uL High 150-400 [facility] Comment on above: Order Comment: Speci men Type: BLOOD SPECIMENOrdering Facility: [facility] Address: [address] [place] [address] Performed By: #### 5 7021-8 ####[facility] LABORATORYCLIA [id number] [place] [id number] [place] RBC (Bld) [#/Vol] 4.84 10*6/uL Normal 4.20-6.00 [facility] Comment on above: Order Comment: Speci men Type: BLOOD SPECIMENOrdering Facility: [facility] Address: [address] [place] [address] Performed By: #### 5 7021-8 ####[facility] LABORATORYCLIA [id number] [place] [id number] [place] WBC (Bld) [#/Vol] 10.01 10*3/uL Normal 3.70-11.00 [facility] Comment on above: Order Comment: Speci men Type: BLOOD SPECIMENOrdering Facility: [facility] Address: [address], [place] [address] Performed By: #### 5 7021-8 ####[facility]ORYR[facility] [id number] [place] [id number] [facility] CNOVon 08-28-2023 CNOV Office Visit (GENNOM ) -------- AISHA JULIEN ([id number]) 1955 M Date Time Provider Department 08/28/23 [...] Oropharynx: Lips, (more content not included)... Normal [facility] CONSULTon 08-28-2023 CONSULT Normal [facility] CT ABD/PEL WO IVCONon 2023 CT ABD/PEL WO IVCON Normal [facility] CT BRAIN WO IVCONon 08-28-19 CT BRAIN WO IVCON Normal [facility] Comprehensive metabolic 2000 panelon 08-28-2023 Albumin [Mass/Vol] 4.1 g/dL Normal 3.9-4.9 [facility] Comment on above: Order Comment: Arben suarez Type: BLOOD SPECIMENOrdering Facility: [facility] Address: [address] [place] [address] Performed By: #### 2 4323-8, [id number], 39827-8, 70135-9, 3040-3 ####[facility] LABORATORYCLIA [id number] [place] [address] [place] ALP [Catalytic activity/Vol] 284 U/L High 38-113 [facility] Comment on above: Order Comment: Speci men Type: BLOOD SPECIMENOrdering Facility: [facility] Address: [address] [place] [address] Performed By: #### 2 4323-8, [id number], 32434-4, 89411-5, 3040-3 ####[facility] LABORATORYCLIA [id number] [place] [address] [place] ALT [Catalytic activity/Vol] 65 U/L High 10-54 [facility] Comment on above: Order Comment: Speci men Type: BLOOD SPECIMENOrdering Facility: [facility] Address: [address] [place] [address] Performed By: #### 2 4323-8, [id number], 72954-6, 49871-5, 3040-3 ####[facility] LABORATORYCLIA [id number] [place] [id number] [place] Anion gap [Moles/Vol] 18 mmol/L Normal 9-18 [facility] Comment on above: Order Comment: Speci men Type: BLOOD SPECIMENOrdering Facility: [facility] Address: [address] [place] [address] Performed By: #### 2 4323-8, [id number], 19773-3, 66104-0, 3040-3 ####[facility] LABORATORYCLIA [id number] [place] [id number] [place] AST [Catalytic activity/Vol] 33 U/L Normal 14-40 [facility] Comment on above: Order Comment: Speci men Type: BLOOD SPECIMENOrdering Facility: [facility] Address: [address] [place] [address] Performed By: #### 2 4323-8, [id number], 38810-0, 64286-3, 3040-3 ####[facility] LABORATORYCLIA [id number] [place] [id number] [place] Bilirubin [Mass/Vol] 0.7 mg/dL Normal 0.2-1.3 [facility] Comment on above: Order Comment: Speci men Type: BLOOD SPECIMENOrdering Facility: [facility] Address: [address] [place] [address] Performed By: #### 2 4323-8, [id number], 30840-3, 32054-2, 3040-3 ####[facility] LABORATORYCLIA [id number] [place] [id number] [place] Calcium [Mass/Vol] 9.5 mg/dL Normal 8.5-10.2 [facility] Comment on above: Order Comment: Speci men Type: BLOOD SPECIMENOrdering Facility: [facility] Address: [place] [address] Performed By: #### 2 4323-8, [id number], 51656-0, 05784-9, 3040-3 ####[facility] LABORATORYCLIA [id number] [place] [address] [place] Chloride [Moles/Vol] 96 mmol/L Low 97-105 [facility] Comment on above: Order Comment: Speci men Type: BLOOD SPECIMENOrdering Facility: [facility] Address: [place] [address] Performed By: #### 2 4323-8, [id number], 58201-5, 02595-3, 3040-3 ####[facility]ORATORYCLIA [id number] [place] [address] [place] CO2 [Moles/Vol] 12 mmol/L Low 22-30 [facility] Comment on above: Order Comment: Speci men Type: BLOOD SPECIMENOrdering Facility: [facility] Address: [place] [address] Performed By: #### 2 4323-8, [id number], 35605-7, 85173-0, 3040-3 ####[facility] LABORATORYCLIA [id number] [place] [id number] [place] Creatinine [Mass/Vol] 2.53 mg/dL High 0.73-1.22 [facility] Comment on above: Order Comment: Speci men Type: BLOOD SPECIMENOrdering Facility: [facility] Address: [place] [address] Performed By: #### 2 4323-8, [id number], 50647-3, 87814-8, 3040-3 ####[facility] LABORATORYCLIA [id number] [place] [address] [place] Creatinine and Glomerular filtration rate.predicted panel (S/P/Bld) 27 mL/min/1.73m??? Low >=60 [facility] Comment on above: Order Comment: Arben suarez Type: BLOOD SPECIMENOrdering Facility: [facility] Address: [address] [address] Result Comment: Bailey mated Glomerular Filtration Rate [...] actual GFR. Performed By: #### 2 4323-8, [id number], 13019-5, 02947-1, 3040-3 ####[facility] LABORATORYCLIA [id number] [place] [id number] [place] Glucose [Mass/Vol] 138 mg/dL High 74-99 [facility] Comment on above: Order Comment: Arben suarez Type: BLOOD SPECIMENOrdering Facility: [facility] Address: [address] [place] [address] Result Comment: The [place] [employer] (ADA) provides guidance for cutoff [...] Standards of Medical Care in Diabetes 2016, [place] [employer]. Diabetes Care. 2016.39(Suppl 1). Performed By: #### 2 4323-8, ESP6792, 96205-1, 67588-6, 3040-3 ####[facility] LABORATORYCLIA [id number] [place] [id number] [place] Potassium [Moles/Vol] 5.4 mmol/L High 3.7-5.1 [facility] Comment on above: Order Comment: Speci men Type: BLOOD SPECIMENOrdering Facility: [facility] Address: [address] [place] [address] Performed By: #### 2 4323-8, DTW2669, 48666-8, 53848-2, 3040-3 ####[facility] LABORATORYCLIA [id number] [place] [id number] [place] Protein [Mass/Vol] 8.2 g/dL High 6.3-8.0 [facility] Comment on above: Order Comment: Speci men Type: BLOOD SPECIMENOrdering Facility: [facility] Address: [address] [place] [address] Performed By: #### 2 4323-8, [id number], 54837-0, 29398-9, 3040-3 ####[facility] LABORATORYCLIA [id number] [place] [address] [place] Sodium [Moles/Vol] 126 mmol/L Low 136-144 [facility] Comment on above: Order Comment: Speci men Type: BLOOD SPECIMENOrdering Facility: [facility] Address: [address] [place] [address] Performed By: #### 2 4323-8, [id number], 39735-3, 05977-3, 3040-3 ####[facility] LABORATORYCLIA [id number] [place] [id number] [place] Urea nitrogen [Mass/Vol] 79 mg/dL High 9-24 [facility] Comment on above: Order Comment: Speci men Type: BLOOD SPECIMENOrdering Facility: [facility] Address: [address] [place] [address] Performed By: #### 2 4323-8, NMB7729, 38255-5, 85388-4, 3040-3 ####[facility] LABORATORYCLIA [id number] [place] [id number] [place] ECG COMPLETEon 08-28-2023 ECG COMPLETE Normal [facility] ED NOTEon 08-28-2023 ED NOTE HNO ID: [id number] Author: ASTRID VALLE RN Service: ? Author Type: Registered Nurse Type: ED Notes Filed: 08/28/2023 19:07 Note Text: Report to LUCILLE Cheng Normal [facility] ED NOTE HNO ID: [id number] Author: ASTRID VALLE RN Service: ? Author Type: Registered Nurse Type: ED Notes Filed: 08/28/2023 18:33 Note Text: RN unable to obtain oral or axillary temperature. Pt refusing rectal temperature at this time. Normal [facility] ED NOTE HNO ID: [id number] Author: JAVON AVILES RN Service: ? Author Type: Registered Nurse Type: ED Notes Filed: 08/28/2023 17:23 Note Text: Bed: 26-ED Expected date: Expected time: Means of arrival: Comments: triage Normal [facility] ED PROV NOTEon 08-28-2023 ED PROV NOTE Normal [facility] ED Triage Noteon 08-28-2023 ED Triage Note Normal [facility] FLUABV+SARS-CoV-2+RSV Pnl Re sp VERITO+probeon 08-28-2023 FLUABV+SARS-CoV-2+RSV Pnl Resp VERITO+probe Normal [facility] Comment on above: Performed By: #### 9 5941-1 ####[facility] LABORATORYCLIA [id number] [place] [address] [place] HIGH SENSITIVITY TROPONIN T (INITIAL)on 08-28-2023 Troponin T.cardiac High sensitivity method [Mass/Vol] 38 ng/L High <12 [facility] Comment on above: Order Comment: Speci men Type: BLOOD SPECIMENOrdering Facility: [facility] Address: [address] [place] [address] [place] [address] Result Comment: When assessing risk for acute [...] day MACE. Performed By: #### 2 4323-8, [id number], 98836-5, 05722-1, 3040-3 ####[facility] LABORATORYCLIA [id number] [place] [address] [place] HIGH SENSITIVITY TROPONIN T (SECOND)on 08-28-2023 Troponin T.cardiac High sensitivity method [Mass/Vol] 36 ng/L High <12 [facility] Comment on above: Order Comment: Arben suarez Type: BLOOD SPECIMENOrdering Facility: [facility] Address: [address] [place] [address] Result Comment: When assessing risk for acute [...] 30 day MACE. Performed By: #### L RR2361 ####[facility] LABORATORYCLIA [id number] [place] [address] [place] Lipase SerPl-cCncon 08-28-19 24 Lipase [Catalytic activity/Vol] 148 U/L High 16-61 [facility] Comment on above: Order Comment: Arben suarez Type: BLOOD SPECIMENOrdering Facility: [facility] Address: [address] [place] [address] Performed By: #### 2 4323-8, [id number], 65207-6, 60079-8, 3040-3 ####[facility] LABORATORYCLIA [id number] [place] [id number] [place] Magnesium SerPl-mCncon 08-28 Magnesium [Mass/Vol] 2.5 mg/dL High 1.7-2.3 [facility] Comment on above: Order Comment: Arben suarez Type: BLOOD SPECIMENOrdering Facility: [facility] Address: [address] [place] [address] Performed By: #### 2 4323-8, TSC8540, 90078-1, 79443-5, 3040-3 ####[facility] LABORATORYCLIA [id number] [place] [address] [place] NT-proBNP SerPl-mCncon 08-28 Natriuretic peptide.B prohormone N-Terminal [Mass/Vol] 404 pg/mL High <125 [facility] Comment on above: Order Comment: Speci daniela Type: BLOOD SPECIMENOrdering Facility: [facility] Address: [place] [address] Performed By: #### 2 4323-8, [id number], 72625-4, 26792-7, 3040-3 ####[facility] LABORATORYCLIA [id number] [place] [id number] [place] PT panel Coag (PPP)on 2023 INR Coag (PPP) [Relative time] 1.3 {INR} Normal 0.9-1.3 [facility] Comment on above: Order Comment: Miabrooks suarez Type: BLOOD SPECIMENOrdering Facility: [facility] Address: [address] [place] [address] Result Comment: Karissa min K Antagonist (VKA) Therapeutic Range: INR 2 to 3 (Target INR of 2.5)Note: For patients treated with VKA drugs, such as warfarin, the [place] [employer] 2012 Guideline recommends [...] al. Chest 2012, 141:7S-47SNishimura RA, et al. [facility] 2017, 70: 252-289 Performed By: #### 3 4528-0, 59596-8 ####[facility] LABORATORYCLIA [id number] [place] [id number] [place] PT Coag (PPP) [Time] 13.7 s High 9.7-13.0 [facility] Comment on above: Order Comment: Arben suarez Type: BLOOD SPECIMENOrdering Facility: [facility] Address: [place] [address] Performed By: #### 3 4528-0, 44169-4 ####[facility] LABORATORYCLIA [id number] [place] [id number] [place] SEPSIS LACTATEon 08-28-2023 Lactate [Moles/Vol] 2.2 mmol/L High 0.0-2.0 [facility] Comment on above: Order Comment: Speci men Type: BLOOD SPECIMENOrdering Facility: [facility] Address: [address] [place] [address] Performed By: #### S LACT ####[facility] LABORATORYCLIA [id number] [address] STATES [facility] Lactate [Moles/Vol] 2.6 mmol/L High 0.0-2.0 [facility] Comment on above: Order Comment: Speci men Type: BLOOD SPECIMENOrdering Facility: [facility] Address: [address] [place] [address] Performed By: #### S LACT ####[facility] LABORATORYCLIA [id number] [address] [place] XR ABDOMEN 1V SUPINEon 08-28 XR ABDOMEN 1V SUPINE Normal [facility] XR CHEST 1V FRONTAL PORTon 0 08-28-2023 XR CHEST 1V FRONTAL PORT Normal [facility] aPTT PPPon 08-28-2023 aPTT Coag (PPP) [Time] 32.1 s Normal 23.0-32.4 [facility] Comment on above: Order Comment: Speci men Type: BLOOD SPECIMENOrdering Facility: [facility] Address: [place] [address] Performed By: #### 3 4528-0, 91705-5 ####[facility] LABORATORYCLIA [id number] [place] [id number] [place] CASE MANAGEMon 08-17-2023 CASE MANAGEM Normal [facility] CNDSon 08-17-2023 CNDS Normal [facility] Comprehensive metabolic 2000 panelon 08-17-2023 Albumin [Mass/Vol] 3.0 g/dL Low 3.9-4.9 [facility] Comment on above: Order Comment: Speci men Type: BLOOD SPECIMENOrdering Facility: [facility] Address: [address] [place] [address] Performed By: #### 2 4323-8, 2776-08, ####[facility] LABORATORYCLIA [id number] [place] [id number] [place] ALP [Catalytic activity/Vol] 137 U/L High 38-113 [facility] Comment on above: Order Comment: Speci men Type: BLOOD SPECIMENOrdering Facility: [facility] Address: [address] [place] [address] Performed By: #### 2 4323-8, 2776-08, ####[facility] LABORATORYCLIA [id number] [place] [id number] [place] ALT [Catalytic activity/Vol] 19 U/L Normal 10-54 [facility] Comment on above: Order Comment: Speci men Type: BLOOD SPECIMENOrdering Facility: [facility] Address: [address] [place] [address] Performed By: #### 2 4323-8, 2776-08, ####[facility] LABORATORYCLIA [id number] [place] [id number] [place] Anion gap [Moles/Vol] 11 mmol/L Normal 9-18 [facility] Comment on above: Order Comment: Speci men Type: BLOOD SPECIMENOrdering Facility: [facility] Address: [address] [place] [address] Performed By: #### 2 4323-8, 2776-08, ####[facility] LABORATORYCLIA [id number] [place] [id number] [place] AST [Catalytic activity/Vol] 18 U/L Normal 14-40 [facility] Comment on above: Order Comment: Speci men Type: BLOOD SPECIMENOrdering Facility: [facility] Address: [address] [place] [address] Performed By: #### 2 4323-8, 2776-08, ####[facility] LABORATORYCLIA [id number] [place] [address] [place] Bilirubin [Mass/Vol] 0.8 mg/dL Normal 0.2-1.3 [facility] Comment on above: Order Comment: Speci men Type: BLOOD SPECIMENOrdering Facility: [facility] Address: [place] [address] Performed By: #### 2 4323-8, 2776-08, ####[facility] LABORATORYCLIA [id number] [place] [id number] [place] Calcium [Mass/Vol] 8.4 mg/dL Low 8.5-10.2 [facility] Comment on above: Order Comment: Speci men Type: BLOOD SPECIMENOrdering Facility: [facility] Address: [place] [address] Performed By: #### 2 4323-8, 2776-08, ####[facility] LABORATORYCLIA [id number] [place] [id number] [place] Chloride [Moles/Vol] 102 mmol/L Normal 97-105 [facility] Comment on above: Order Comment: Speci men Type: BLOOD SPECIMENOrdering Facility: [facility] Address: [place] [address] Performed By: #### 2 4323-8, 2776-08, ####[facility] LABORATORYCLIA [id number] [place] [id number] [place] CO2 [Moles/Vol] 22 mmol/L Normal 22-30 [facility] Comment on above: Order Comment: Speci men Type: BLOOD SPECIMENOrdering Facility: [facility] Address: [place] [address] Performed By: #### 2 4323-8, 2776-08, ####GE[facility] LABORATORYCLIA [id number] [place] [id number] [place] Creatinine [Mass/Vol] 1.06 mg/dL Normal 0.73-1.22 [facility] Comment on above: Order Comment: Speci men Type: BLOOD SPECIMENOrdering Facility: [facility] Address: [address] [place] [address] Performed By: #### 2 4323-8, 2777-1, 24663-6 ####[facility] LABORATORYCLIA [id number] [place] [id number] [place] Creatinine and Glomerular filtration rate.predicted panel (S/P/Bld) 76 mL/min/1.73m??? Normal >=60 [facility] Comment on above: Order Comment: Arben suarez Type: BLOOD SPECIMENOrdering Facility: [facility] Address: [address] [place] [address] Result Comment: Bailey mated Glomerular Filtration Rate [...] GFR. Performed By: #### 2 4323-8, 2777-, ####[facility] LABORATORYCLIA [id number] [place] [id number] [place] Glucose [Mass/Vol] 119 mg/dL High 74-99 [facility] Comment on above: Order Comment: Arben suarez Type: BLOOD SPECIMENOrdering Facility: [facility] Address: [address] [place] [address] Result Comment: The [place] Diabetes Association (ADA) provides guidance for cutoff [...] Standards of Medical Care in Diabetes 2016, [place] [employer]. Diabetes Care. 2016.39(Suppl 1). Performed By: #### 2 4323-8, 2777-, ####[facility] LABORATORYCLIA [id number] [place] [address] [place] Potassium [Moles/Vol] 3.9 mmol/L Normal 3.7-5.1 [facility] Comment on above: Order Comment: Speci men Type: BLOOD SPECIMENOrdering Facility: [facility] Address: [address] [place] [address] Performed By: #### 2 4323-8, 2776-08, ####GEOVANNA LABORATORYCLIA [id number] [place] [id number] [place] Protein [Mass/Vol] 5.9 g/dL Low 6.3-8.0 [facility] Comment on above: Order Comment: Speci men Type: BLOOD SPECIMENOrdering Facility: [facility] Address: [address] [place] [address] Performed By: #### 2 4323-8, 2776-08, ####GEOVANNA LABORATORYCLIA [id number] [place] [id number] [place] Sodium [Moles/Vol] 135 mmol/L Low 136-144 [facility] Comment on above: Order Comment: Speci men Type: BLOOD SPECIMENOrdering Facility: [facility] Address: [address] [place] [address] Performed By: #### 2 4323-8, 2776-08, ####GEOVANNA LABORATORYCLIA [id number] [place] [id number] [place] Urea nitrogen [Mass/Vol] 19 mg/dL Normal - [facility] Comment on above: Order Comment: Speci men Type: BLOOD SPECIMENOrdering Facility: [facility] Address: [address] [place] [address] Performed By: #### 2 4323-8, 2776-08, ####[facility] LABORATORYCLIA [id number] [place] [id number] [place] Magnesium SerPl-mCncon 08-17 Magnesium [Mass/Vol] 2.3 mg/dL Normal 1.7-2.3 [facility] Comment on above: Order Comment: Speci men Type: BLOOD SPECIMENOrdering Facility: [facility] Address: [place] [address] Performed By: #### 2 4323-8, 2776-08, ####[facility] LABORATORYCLIA [id number] [place] [id number] [facility] [place] NURSING PROGon 08-17-2023 NURSING PROG Normal [facility] Phosphate SerPl-mCncon 08-17 Phosphate [Mass/Vol] 3.0 mg/dL Normal 2.7-4.8 [facility] Comment on above: Order Comment: Speci men Type: BLOOD SPECIMENOrdering Facility: [facility] Address: [place] [address] Performed By: #### 2 4323-8, 2776-08, ####[facility] LABORATORYCLIA [id number] [place] [id number] [facility] [place] CASE MANAGEMon 08-16-2023 CASE MANAGEM Normal [facility] CBC panel Auto (Bld)on 08-16 Erythrocyte distribution width (RBC) [Ratio] 12.0 % Normal 11.5-15.0 [facility] Comment on above: Order Comment: Speci men Type: BLOOD SPECIMENOrdering Facility: [facility] Address: [place] [address] Performed By: #### 5 8410-2 ####[facility] LABORATORYCLIA [id number] [place] [id number] [place] Hematocrit (Bld) [Volume fraction] 33.3 % Low 39.0-51.0 [facility] Comment on above: Order Comment: Speci men Type: BLOOD SPECIMENOrdering Facility: [facility] Address: [place] [address] Performed By: #### 5 8410-2 ####[facility] LABORATORYCLIA [id number] [place] [id number] [place] Hemoglobin (Bld) [Mass/Vol] 11.1 g/dL Low 13.0-17.0 [facility] Comment on above: Order Comment: Speci men Type: BLOOD SPECIMENOrdering Facility: [facility] Address: [address] [place] [address] Performed By: #### 5 8410-2 ####[facility] LABORATORYCLIA [id number] [address] STATES [facility] MCH (RBC) [Entitic mass] 30.2 pg Normal 26.0-34.0 [facility] Comment on above: Order Comment: Speci men Type: BLOOD SPECIMENOrdering Facility: [facility] Address: [address] [place] [address] Performed By: #### 5 8410-2 ####[facility] LABORATORYCLIA [id number] [address] [place] MCHC (RBC) [Mass/Vol] 33.3 g/dL Normal 30.5-36.0 [facility] Comment on above: Order Comment: Speci men Type: BLOOD SPECIMENOrdering Facility: [facility] Address: [address] [place] [address] Performed By: #### 5 8410-2 ####[facility] LABORATORYCLIA [id number] [address] [place] MCV (RBC) [Entitic vol] 90.5 fL Normal 80.0-100.0 [facility] Comment on above: Order Comment: Speci men Type: BLOOD SPECIMENOrdering Facility: [facility] Address: [address] [place] [address] Performed By: #### 5 8410-2 ####[facility] LABORATORYCLIA [id number] [address] Nucleated RBC (Bld) [#/Vol] 10*3/uL Normal <0.01 [facility] Comment on above: Order Comment: Speci men Type: BLOOD SPECIMENOrdering Facility: [facility] Address: [address] [place] [address] Performed By: #### 5 8410-2 ####[facility] LABORATORYCLIA [id number] [address] [place] Platelet mean volume (Bld) [Entitic vol] 11.3 fL Normal 9.0-12.7 [facility] Comment on above: Order Comment: Speci men Type: BLOOD SPECIMENOrdering Facility: [facility] Address: [place] [address] Performed By: #### 5 8410-2 ####[facility] LABORATORYCLIA [id number] [place] [id number] [place] Platelets (Bld) [#/Vol] 214 10*3/uL Normal 150-400 [facility] Comment on above: Order Comment: Speci men Type: BLOOD SPECIMENOrdering Facility: [facility] Address: [place] [address] Performed By: #### 5 8410-2 ####[facility] LABORATORYCLIA [id number] [place] [address] [place] RBC (Bld) [#/Vol] 3.68 10*6/uL Low 4.20-6.00 [facility] Comment on above: Order Comment: Speci men Type: BLOOD SPECIMENOrdering Facility: [facility] Address: [address] [place] [address] Performed By: #### 5 8410-2 ####[facility] LABORATORYCLIA [id number] [place] [id number] [place] WBC (Bld) [#/Vol] 7.23 10*3/uL Normal 3.70-11.00 [facility] Comment on above: Order Comment: Speci men Type: BLOOD SPECIMENOrdering Facility: [facility] Address: [place] [address] Performed By: #### 5 8410-2 ####[facility] LABORATORYCLIA [id number] [place] [id number] [place] CONSULTon 08-16-2023 CONSULT Normal [facility] Comprehensive metabolic 2000 panelon 08-16-2023 Albumin [Mass/Vol] 3.2 g/dL Low 3.9-4.9 [facility] Comment on above: Order Comment: Speci men Type: BLOOD SPECIMENOrdering Facility: [facility] Address: [address] [place] [address] Performed By: #### 2 777-1, , ####GEOVANNA LABORATORYCLIA [id number] [place] [address] [place] ALP [Catalytic activity/Vol] 139 U/L High 38-113 [facility] Comment on above: Order Comment: Speci men Type: BLOOD SPECIMENOrdering Facility: [facility] Address: [address] [place] [address] Performed By: #### 2 777-1, , ####GEOVANNA LABORATORYCLIA [id number] [place] [id number] [place] ALT [Catalytic activity/Vol] 23 U/L Normal 10-54 [facility] Comment on above: Order Comment: Speci men Type: BLOOD SPECIMENOrdering Facility: [facility] Address: [address] [address] Performed By: #### 2 777-1, , ####GEOVANNA LABORATORYCLIA [id number] [place] [id number] [place] Anion gap [Moles/Vol] 9 mmol/L Normal 9-18 [facility] Comment on above: Order Comment: Speci men Type: BLOOD SPECIMENOrdering Facility: [facility] Address: [address] [place] [address] Performed By: #### 2 777-1, , ####GEOVANNA LABORATORYCLIA [id number] [place] [id number] [place] AST [Catalytic activity/Vol] 22 U/L Normal 14-40 [facility] Comment on above: Order Comment: Speci men Type: BLOOD SPECIMENOrdering Facility: [facility] Address: [address] [place] [address] Performed By: #### 2 777-1, , ####GEOVANNA LABORATORYCLIA [id number] [place] [address] [place] Bilirubin [Mass/Vol] 0.8 mg/dL Normal 0.2-1.3 [facility] Comment on above: Order Comment: Speci men Type: BLOOD SPECIMENOrdering Facility: [facility] Address: [address] [place] [address] Performed By: #### 2 777-1, , ####GEOVANNA LABORATORYCLIA [id number] [place] [address] [place] Calcium [Mass/Vol] 8.7 mg/dL Normal 8.5-10.2 [facility] Comment on above: Order Comment: Speci men Type: BLOOD SPECIMENOrdering Facility: [facility] Address: [address] [place] [address] Performed By: #### 2 777-1, , ####GEOVANNA LABORATORYCLIA [id number] [place] [id number] [place] Chloride [Moles/Vol] 103 mmol/L Normal 97-105 [facility] Comment on above: Order Comment: Speci men Type: BLOOD SPECIMENOrdering Facility: [facility] Address: [address] [place] [address] Performed By: #### 2 777-1, , ####GEOVANNA LABORATORYCLIA [id number] [place] [id number] [place] CO2 [Moles/Vol] 25 mmol/L Normal 22-30 [facility] Comment on above: Order Comment: Speci men Type: BLOOD SPECIMENOrdering Facility: [facility] Address: [address] [place] [address] Performed By: #### 2 777-1, , ####GEOVANNA LABORATORYCLIA [id number] [place] [id number] [place] Creatinine [Mass/Vol] 1.04 mg/dL Normal 0.73-1.22 [facility] Comment on above: Order Comment: Speci men Type: BLOOD SPECIMENOrdering Facility: [facility] Address: [address] [place] [address] Performed By: #### 2 777-1, 68462-4, ####[facility] LABORATORYCLIA [id number] [place] [id number] [place] Creatinine and Glomerular filtration rate.predicted panel (S/P/Bld) 78 mL/min/1.73m??? Normal >=60 [facility] Comment on above: Order Comment: Arben suarez Type: BLOOD SPECIMENOrdering Facility: [facility] Address: [address] [place] [address] Result Comment: Bailey mated Glomerular Filtration Rate [...] actual GFR. Performed By: #### 2 777-1, 76371-9, ####[facility] LABORATORYCLIA [id number] [place] [id number] [place] Glucose [Mass/Vol] 111 mg/dL High 74-99 [facility] Comment on above: Order Comment: Arben suarez Type: BLOOD SPECIMENOrdering Facility: [facility] Address: [address] [place] [address] Result Comment: The [place] Diabetes Association (ADA) provides guidance for cutoff [...] Standards of Medical Care in Diabetes 2016, [place] [employer]. Diabetes Care. 2016.39(Suppl 1). Performed By: #### 2 777-1, 60897-5, ####[facility] LABORATORYCLIA [id number] [place] [address] [place] Potassium [Moles/Vol] 4.2 mmol/L Normal 3.7-5.1 [facility] Comment on above: Order Comment: Speci men Type: BLOOD SPECIMENOrdering Facility: [facility] Address: [address] [place] [address] Performed By: #### 2 777-1, , ####GEOVANNA LABORATORYCLIA [id number] [place] [id number] [place] Protein [Mass/Vol] 6.2 g/dL Low 6.3-8.0 [facility] Comment on above: Order Comment: Speci men Type: BLOOD SPECIMENOrdering Facility: [facility] Address: [address] [place] [address] Performed By: #### 2 777-1, , ####GEOVANNA LABORATORYCLIA [id number] [place] [id number] [place] Sodium [Moles/Vol] 137 mmol/L Normal 136-144 [facility] Comment on above: Order Comment: Speci men Type: BLOOD SPECIMENOrdering Facility: [facility] Address: [address] [place] [address] Performed By: #### 2 777-1, , ####GEOVANNA LABORATORYCLIA [id number] [place] [id number] [place] Urea nitrogen [Mass/Vol] 24 mg/dL Normal 9-24 [facility] Comment on above: Order Comment: Speci men Type: BLOOD SPECIMENOrdering Facility: [facility] Address: [address] [place] [address] Performed By: #### 2 777-1, , ####GEOVANNA LABORATORYCLIA [id number] [place] [id number] [place] Magnesium SerPl-mCncon 08-16 Magnesium [Mass/Vol] 1.8 mg/dL Normal 1.7-2.3 [facility] Comment on above: Order Comment: Speci men Type: BLOOD SPECIMENOrdering Facility: [facility] Address: [address] [place] [address] Performed By: #### 2 777-1, 94056-7, ####[facility] LABORATORYCLIA [id number] [place] [address] [place] Phosphate SerPl-mCncon 08-16 Phosphate [Mass/Vol] 2.6 mg/dL Low 2.7-4.8 [facility] Comment on above: Order Comment: Speci men Type: BLOOD SPECIMENOrdering Facility: [facility] Address: [address] [place] [address] Performed By: #### 2 777-1, 83575-5, ####[facility] LABORATORYCLIA [id number] [place] [address] [place] ALLIED HEALTHon 08-15-2023 ALLIED HEALTH Normal [facility] ALLIED HEALTH Normal [facility] Basic metabolic 2000 panelon 08-15-2023 Anion gap [Moles/Vol] 10 mmol/L Normal 9-18 [facility] Comment on above: Order Comment: Speci men Type: BLOOD SPECIMENOrdering Facility: [facility] Address: [place] [address] Performed By: #### 2 4321-2 ####[facility] LABORATORYCLIA [id number] [place] [address] [place] Calcium [Mass/Vol] 8.8 mg/dL Normal 8.5-10.2 [facility] Comment on above: Order Comment: Speci men Type: BLOOD SPECIMENOrdering Facility: [facility] Address: [address] [place] [address] Performed By: #### 2 4321-2 ####[facility] LABORATORYCLIA [id number] [place] [id number] [place] Chloride [Moles/Vol] 101 mmol/L Normal 97-105 [facility] Comment on above: Order Comment: Speci men Type: BLOOD SPECIMENOrdering Facility: [facility] Address: [address] [place] [address] Performed By: #### 2 4321-2 ####[facility] LABORATORYCLIA [id number] [place] [id number] [place] CO2 [Moles/Vol] 26 mmol/L Normal 22-30 [facility] Comment on above: Order Comment: Speci men Type: BLOOD SPECIMENOrdering Facility: [facility] Address: [address] [place] [address] Performed By: #### 2 4321-2 ####[facility] LABORATORYCLIA [id number] [place] [id number] [place] Creatinine [Mass/Vol] 1.08 mg/dL Normal 0.73-1.22 [facility] Comment on above: Order Comment: Speci men Type: BLOOD SPECIMENOrdering Facility: [facility] Address: [address] [place] [address] Performed By: #### 2 4321-2 ####[facility] LABORATORYCLIA [id number] [place] [id number] [place] Creatinine and Glomerular filtration rate.predicted panel (S/P/Bld) 75 mL/min/1.73m??? Normal >=60 [facility] Comment on above: Order Comment: Speci men Type: BLOOD SPECIMENOrdering Facility: [facility] Address: [address] [place] [address] Result Comment: Bailey mated Glomerular Filtration Rate [...] actual GFR. Performed By: #### 2 4321-2 ####[facility] LABORATORYCLIA [id number] [place] [id number] [place] Glucose [Mass/Vol] 92 mg/dL Normal 74-99 [facility] Comment on above: Order Comment: Speci men Type: BLOOD SPECIMENOrdering Facility: [facility] Address: [address] [place] [address] Result Comment: The [place] Diabetes Association (ADA) provides guidance for cutoff [...] Standards of Medical Care in Diabetes 2016, [place] [employer]. Diabetes Care. 2016.39(Suppl 1). Performed By: #### 2 4321-2 ####[facility] LABORATORYCLIA [id number] [place] [address] [place] Potassium [Moles/Vol] 4.6 mmol/L Normal 3.7-5.1 [facility] Comment on above: Order Comment: Speci men Type: BLOOD SPECIMENOrdering Facility: [facility] Address: [address] [place] [address] Performed By: #### 2 4321-2 ####[facility] LABORATORYCLIA [id number] [place] [id number] [place] Sodium [Moles/Vol] 137 mmol/L Normal 136-144 [facility] Comment on above: Order Comment: Speci men Type: BLOOD SPECIMENOrdering Facility: [facility] Address: [address] [place] [address] Performed By: #### 2 4321-2 ####[facility] LABORATORYCLIA [id number] [place] [id number] [place] Urea nitrogen [Mass/Vol] 28 mg/dL High 9-24 [facility] Comment on above: Order Comment: Speci men Type: BLOOD SPECIMENOrdering Facility: [facility] Address: [address] [place] [address] Performed By: #### 2 4321-2 ####[facility] LABORATORYCLIA [id number] [place] [id number] [place] CASE MANAGEMon 08-15-2023 CASE MANAGEM Normal [facility] CASE MANAGEM Normal [facility] CONSULT PROGon 08-15-2023 CONSULT PROG Normal [facility] Comprehensive metabolic 2000 panelon 08-15-2023 Albumin [Mass/Vol] 3.0 g/dL Low 3.9-4.9 [facility] Comment on above: Order Comment: Speci men Type: BLOOD SPECIMENOrdering Facility: [facility] Address: [address] [place] [address] Performed By: #### 1 9123-9, 60588-3, 2777- ####[facility] LABORATORYCLIA [id number] [place] [id number] [place] ALP [Catalytic activity/Vol] 123 U/L High 38-113 [facility] Comment on above: Order Comment: Speci men Type: BLOOD SPECIMENOrdering Facility: [facility] Address: [address] [place] [address] Performed By: #### 1 9123-9, 00241-4, 2776- ####[facility] LABORATORYCLIA [id number] [place] [id number] [place] ALT [Catalytic activity/Vol] 24 U/L Normal 10-54 [facility] Comment on above: Order Comment: Speci men Type: BLOOD SPECIMENOrdering Facility: [facility] Address: [address] [place] [address] Performed By: #### 1 9123-9, 92948-7, 7-1 ####[facility] LABORATORYCLIA [id number] [place] [id number] [place] Anion gap [Moles/Vol] 8 mmol/L Low 9-18 [facility] Comment on above: Order Comment: Speci men Type: BLOOD SPECIMENOrdering Facility: [facility] Address: [address] [place] [address] Performed By: #### 1 9123-9, 24797-9, 2777-1 ####[facility] LABORATORYCLIA [id number] [place] [address] [place] AST [Catalytic activity/Vol] 26 U/L Normal 14-40 [facility] Comment on above: Order Comment: Speci men Type: BLOOD SPECIMENOrdering Facility: [facility] Address: [address] [place] [address] Performed By: #### 1 9123-9, , 2776-08 ####[facility] LABORATORYCLIA [id number] [place] [address] [place] Bilirubin [Mass/Vol] 0.9 mg/dL Normal 0.2-1.3 [facility] Comment on above: Order Comment: Speci men Type: BLOOD SPECIMENOrdering Facility: [facility] Address: [address] [place] [address] Performed By: #### 1 9123-9, , 2776-08 ####[facility] LABORATORYCLIA [id number] [place] [address] [place] Calcium [Mass/Vol] 8.9 mg/dL Normal 8.5-10.2 [facility] Comment on above: Order Comment: Speci men Type: BLOOD SPECIMENOrdering Facility: [facility] Address: [address] [place] [address] Performed By: #### 1 9123-9, , 2776-08 ####[facility] LABORATORYCLIA [id number] [place] [id number] [place] Chloride [Moles/Vol] 103 mmol/L Normal 97-105 [facility] Comment on above: Order Comment: Speci men Type: BLOOD SPECIMENOrdering Facility: [facility] Address: [address] [place] [address] Performed By: #### 1 9123-9, , 2776-08 ####[facility] LABORATORYCLIA [id number] [place] [id number] [place] CO2 [Moles/Vol] 28 mmol/L Normal 22-30 [facility] Comment on above: Order Comment: Speci men Type: BLOOD SPECIMENOrdering Facility: [facility] Address: [address] [place] [address] Performed By: #### 1 9123-9, , 2776-08 ####[facility] LABORATORYCLIA [id number] [place] [address] [place] Creatinine [Mass/Vol] 1.01 mg/dL Normal 0.73-1.22 [facility] Comment on above: Order Comment: Arben suarez Type: BLOOD SPECIMENOrdering Facility: [facility] Address: [address] [place] [address] Performed By: #### 1 9123-9, 16840-8, 2776-08 ####[facility] LABORATORYCLIA [id number] [place] [id number] [place] Creatinine and Glomerular filtration rate.predicted panel (S/P/Bld) 81 mL/min/1.73m??? Normal >=60 [facility] Comment on above: Order Comment: Arben suarez Type: BLOOD SPECIMENOrdering Facility: [facility] Address: [address] [place] [address] Result Comment: Bailey mated Glomerular Filtration Rate [...] actual GFR. Performed By: #### 1 9123-9, 10812-4, 2776-08 ####[facility] LABORATORYCLIA [id number] [place] [address] [place] Glucose [Mass/Vol] 91 mg/dL Normal 74-99 [facility] Comment on above: Order Comment: Arben suarez Type: BLOOD SPECIMENOrdering Facility: [facility] Address: [address] [place] [address] Result Comment: The [place] Diabetes [employer] (ADA) provides guidance for cutoff [...] Standards of Medical Care in Diabetes 2016, [place] [employer]. Diabetes Care. 2016.39(Suppl 1). Performed By: #### 1 9123-9, 25744-9, 2776- ####GEOVANNA LABORATORYCLIA [id number] [place] [address] [place] Potassium [Moles/Vol] 5.3 mmol/L High 3.7-5.1 [facility] Comment on above: Order Comment: Speci daniela Type: BLOOD SPECIMENOrdering Facility: [facility] Address: [address] [place] [address] Performed By: #### 1 9123-9, 38355-1, 2776-08 ####[place] LABORATORYCLIA [id number] [place] [id number] [place] Protein [Mass/Vol] 6.1 g/dL Low 6.3-8.0 [facility] Comment on above: Order Comment: Speci daniela Type: BLOOD SPECIMENOrdering Facility: [facility] Address: [address] [place] [address] Performed By: #### 1 9123-9, , 2776-08 ####[facility] LABORATORYCLIA [id number] [place] [id number] [place] Sodium [Moles/Vol] 139 mmol/L Normal 136-144 [facility] Comment on above: Order Comment: Speci men Type: BLOOD SPECIMENOrdering Facility: [facility] Address: [address] [place] [address] Performed By: #### 1 9123-9, , 2776-08 ####[facility] LABORATORYCLIA [id number] [place] [id number] [place] Urea nitrogen [Mass/Vol] 30 mg/dL High 9-24 [facility] Comment on above: Order Comment: Speci men Type: BLOOD SPECIMENOrdering Facility: [facility] Address: [address] [place] [id number] Performed By: #### 1 9123-9, 97315-5, 2777-1 ####[facility] LABORATORYCLIA [id number] [place] [id number] [place] Magnesium SerPl-mCncon 08-15 Magnesium [Mass/Vol] 1.9 mg/dL Normal 1.7-2.3 [facility] Comment on above: Order Comment: Speci men Type: BLOOD SPECIMENOrdering Facility: [facility] Address: [address] [place] [id number] Performed By: #### 1 9123-9, 41741-8, 2777-1 ####[facility] LABORATORYCLIA [id number] [place] [address] [place] NURSING PROGon 08-15-2023 NURSING PROG Normal [facility] NUTRITIONon 08-15-2023 NUTRITION Normal [facility] Phosphate SerPl-mCncon 08-15 Phosphate [Mass/Vol] 2.5 mg/dL Low 2.7-4.8 [facility] Comment on above: Order Comment: Speci men Type: BLOOD SPECIMENOrdering Facility: [facility] Address: [place] [address] Performed By: #### 1 9123-9, 87705-4, 2777-1 ####GE[facility] LABORATORYCLIA [id number] [place] [address] [place] XR ABDOMEN 1V SUPINEon 08-15 XR ABDOMEN 1V SUPINE Normal [facility] ANES POSTPROC EVALon 023 ANES POSTPROC EVAL Normal [facility] ANES PRE-OPon 08-14-2023 ANES PRE-OP Normal [facility] CASE MANAGEMon 08-14-2023 CASE MANAGEM Normal [facility] CNCOon 08-14-2023 CNCO Letter Text Normal [facility] metabolic 2000 panelon 08-14-2023 Albumin [Mass/Vol] 3.2 g/dL Low 3.9-4.9 [facility] Comment on above: Order Comment: Speci men Type: BLOOD SPECIMENOrdering Facility: [facility] Address: [address] [place] [address] Performed By: #### 2 4323-8, , 2776-08 ####GE[facility] LABORATORYCLIA [id number] [place] [id number] [place] ALP [Catalytic activity/Vol] 122 U/L High 38-113 [facility] Comment on above: Order Comment: Speci men Type: BLOOD SPECIMENOrdering Facility: [facility] Address: [address] [place] [address] Performed By: #### 2 3-8, , 2776-08 ####GE[facility] LABORATORYCLIA [id number] [place] [id number] [place] ALT [Catalytic activity/Vol] 19 U/L Normal 10-54 [facility] Comment on above: Order Comment: Speci men Type: BLOOD SPECIMENOrdering Facility: [facility] Address: [address] [address] Performed By: #### 2 4322-8, , 2776-08 ####GE[facility]NA LABORATORYCLIA [id number] [place] [id number] [place] Anion gap [Moles/Vol] 13 mmol/L Normal 9-18 [facility] Comment on above: Order Comment: Speci men Type: BLOOD SPECIMENOrdering Facility: [facility] Address: [address] [place] [address] Performed By: #### 2 3-8, , 2776-08 ####GE[facility] LABORATORYCLIA [id number] [place] [id number] [place] AST [Catalytic activity/Vol] 26 U/L Normal 14-40 [facility] Comment on above: Order Comment: Speci men Type: BLOOD SPECIMENOrdering Facility: [facility] Address: [address] [place] [address] Performed By: #### 2 4323-8, , 2776-08 ####GEOV[facility]NA LABORATORYCLIA [id number] [place] [id number] [place] Bilirubin [Mass/Vol] 1.0 mg/dL Normal 0.2-1.3 [facility] Comment on above: Order Comment: Speci men Type: BLOOD SPECIMENOrdering Facility: [facility] Address: [address] [place] [address] Performed By: #### 2 4323-8, , 2776-08 ####GEOV[facility]NA LABORATORYCLIA [id number] [place] [address] [place] Calcium [Mass/Vol] 9.0 mg/dL Normal 8.5-10.2 [facility] Comment on above: Order Comment: Speci men Type: BLOOD SPECIMENOrdering Facility: [facility] Address: [place] [address] Performed By: #### 2 4323-8, , 2776-08 ####GE[facility]NA LABORATORYCLIA [id number] [place] [id number] [place] Chloride [Moles/Vol] 100 mmol/L Normal 97-105 [facility] Comment on above: Order Comment: Speci men Type: BLOOD SPECIMENOrdering Facility: [facility] Address: [place] [address] Performed By: #### 2 4323-8, , 2776-08 ####GE[facility]NA LABORATORYCLIA [id number] [place] [id number] [place] CO2 [Moles/Vol] 26 mmol/L Normal 22-30 [facility] Comment on above: Order Comment: Speci men Type: BLOOD SPECIMENOrdering Facility: [facility] Address: [address] [place] [address] Performed By: #### 2 4323-8, , 2776-08 ####GEOV[facility]NA LABORATORYCLIA [id number] [place] [address] [place] Creatinine [Mass/Vol] 1.12 mg/dL Normal 0.73-1.22 [facility] Comment on above: Order Comment: Speci men Type: BLOOD SPECIMENOrdering Facility: [facility] Address: [address] [place] [address] Performed By: #### 2 4323-8, 53649-5, 2777- ####[place] LABORATORYCLIA [id number] [place] [id number] [place] Creatinine and Glomerular filtration rate.predicted panel (S/P/Bld) 72 mL/min/1.73m??? Normal >=60 [facility] Comment on above: Order Comment: Arben suarez Type: BLOOD SPECIMENOrdering Facility: [facility] Address: [address] [place] [address] Result Comment: Bailey mated Glomerular Filtration Rate [...] actual GFR. Performed By: #### 2 4323-8, 81607-6, 2776-08 ####[place] LABORATORYCLIA [id number] [place] [id number] [place] Glucose [Mass/Vol] 127 mg/dL High 74-99 [facility] Comment on above: Order Comment: Arben suarez Type: BLOOD SPECIMENOrdering Facility: [facility] Address: [address] [place] [address] Result Comment: The [place] Diabetes [employer] (ADA) provides guidance for cutoff [...] Standards of Medical Care in Diabetes 2016, [place] [employer]. Diabetes Care. 2016.39(Suppl 1). Performed By: #### 2 4323-8, 88891-5, 2777- ####[place] LABORATORYCLIA [id number] [place] [id number] [place] Potassium [Moles/Vol] 4.1 mmol/L Normal 3.7-5.1 [facility] Comment on above: Order Comment: Speci men Type: BLOOD SPECIMENOrdering Facility: [facility] Address: [address] [place] [address] Performed By: #### 2 4323-8, , 2776-08 ####GE[facility] LABORATORYCLIA [id number] [place] [id number] [place] Protein [Mass/Vol] 6.6 g/dL Normal 6.3-8.0 [facility] Comment on above: Order Comment: Speci men Type: BLOOD SPECIMENOrdering Facility: [facility] Address: [address] [place] [address] Performed By: #### 2 4323-8, , 2776-08 ####[facility] LABORATORYCLIA [id number] [place] [id number] [place] Sodium [Moles/Vol] 139 mmol/L Normal 136-144 [facility] Comment on above: Order Comment: Speci men Type: BLOOD SPECIMENOrdering Facility: [facility] Address: [address] [place] [address] Performed By: #### 2 4323-8, , 2776-08 ####[facility] LABORATORYCLIA [id number] [place] [id number] [place] Urea nitrogen [Mass/Vol] 34 mg/dL High 9-24 [facility] Comment on above: Order Comment: Speci men Type: BLOOD SPECIMENOrdering Facility: [facility] Address: [address] [place] [address] Performed By: #### 2 4323-8, , 2776-08 ####[facility] LABORATORYCLIA [id number] [place] [id number] [place] HISTORY PHYSICALon HISTORY PHYSICAL Normal [facility] Magnesium SerPl-mCncon 08-14 Magnesium [Mass/Vol] 2.0 mg/dL Normal 1.7-2.3 [facility] Comment on above: Order Comment: Speci men Type: BLOOD SPECIMENOrdering Facility: [facility] Address: [place] [address] Performed By: #### 2 4323-8, 78304-7, 7-1 ####[place] LABORATORYCLIA [id number] [address] [place] NURSING PROGon 08-14-2023 NURSING PROG Normal [facility] NURSING PROG Normal [facility] NURSING PROG Normal [facility] NUTRITIONon 08-14-2023 NUTRITION Normal [facility] Phosphate SerPl-mCncon 08-14 Phosphate [Mass/Vol] 2.9 mg/dL Normal 2.7-4.8 [facility] Comment on above: Order Comment: Speci men Type: BLOOD SPECIMENOrdering Facility: [facility] Address: [place] [address] Performed By: #### 2 4323-8, 85408-6, 2776- ####[facility] LABORATORYCLIA [id number] [address] [place] Upper GI endoscopyon 023 Upper GI endoscopy Normal [facility] XR ABDOMEN 1V SUPINEon 08-14 XR ABDOMEN 1V SUPINE [facility] XR ABDOMEN 1V SUPINE Normal [facility] ALLIED HEALTHon 08-13-2023 ALLIED HEALTH [facility] ANES POSTPROC EVALon 023 ANES POSTPROC EVAL Normal [facility] ANES PRE-OPon 08-13-2023 ANES PRE-OP Normal [facility] CASE MANAGEMon 08-13-2023 CASE MANAGEM [facility] CNPAisha 08-13-2023 CNPN Telephone ([id number]) -------- AISHA JULIEN ([id number]) 1955 M Date Time Provider Department 08/13/23 [place] [facility] [id number] During your visit today, we recorded the following information about you: Jessie Zamora RN 08/13/2023 10:25 AM Signed Call made to [employer] - patient employer to get [facility] paperwork for him. Left a with Kindra. Gave her cell number to call back and/or fax number to fax paperwork. Jessie Zamora RN 08/14/2023 9:14 AM Signed Kindra from [employer] [facility] returned call yesterday stating that she had [...] NaCl 0.45% iv infusion - phenol 1 Marcellus (CHLORASEPTIC) - NaCl 0.9% iv flush bag [...] Status:Closed by JESSIE ZAMORA on 08/14/23 Normal [facility] CYTOLOGY NON-GYNon 3 ADEQUACY INTERPRETATION Normal [facility] Comment on above: Order Comment: Speci men Type: SPECIMEN OBTAINED BY ASPIRATIONOrdering Facility: [facility] Address: [address] [place] [address] Result Comment: A: # 1 Lymphoid sampleB: #1, 2 Lesional cells present. Monotonous cells could be low-grade neuroendocrine tumor.Dr. Dsouza / Richard Farrell letter in the above intra-procedural assessment refers to a unique site. The specific site is indicated in the final diagnosis portion of the report. Each number in this assessment references a discrete evaluation episode.Intra-procedural assessment performed at [facility], [address] [place] [address] Performed By: #### C YTONON ####[place] LABORATORYCLIA [id number] [address] [place] CASE REPORT Normal [facility] Comment on above: Order Comment: Speci men Type: SPECIMEN OBTAINED BY ASPIRATIONOrdering Facility: [facility] Address: [address] [place] [address] Result Comment: [facility] Cytology Report Case: [id number] Provider: Stephanie Avery MD Collected: 08/13/2023 11:22 AMOrdering Location: [facility] Received: 08/13/2023 12:00 PM Endoscopy - ENDOPathologist: Darrius Dsouza MDSpecimens: A) - LYMPH NODE FINE NEEDLE ASPIRATION, PORTAL LYMPH NODE B) - PANCREAS FINE NEEDLE ASPIRATION, UNCINATE PROCESS Performed By: #### C YTONON ####[place] LABORATORYCLIA [id number] [address] CLINICAL HISTORY Weight loss Normal [facility] Comment on above: Order Comment: Speci men Type: SPECIMEN OBTAINED BY ASPIRATIONOrdering Facility: [facility] Address: [address] [place] [address] Result Comment: Lupillo kenny outlet obstructionTachycardiaHypomagnesemiaAKI Performed By: #### C YTONON ####[place] LABORATORYCLIA [id number] [address] DIAGNOSIS COMMENT Normal [facility] Comment on above: Order Comment: Speci men Type: SPECIMEN OBTAINED BY ASPIRATIONOrdering Facility: [facility] Address: [address] [place] [address] Result Comment: A. T he diagnostic neoplastic cells are predominantly found on the ThinPrep slide. The discrepancy between the RIVERA diagnosis of lymphoid sample and the final diagnosis was reported by secure staff message to Dr. Avery on 08/14/2023 at 1101.B. This part of the case was interpreted in conjunction with the related surgical pathology case [id number] with diagnostic concurrence. Performed By: #### C YTONON ####[place] LABORATORYCLIA [id number] [address] OF [facility] FINAL DIAGNOSIS Normal [facility] Comment on above: Order Comment: Speci men Type: SPECIMEN OBTAINED BY ASPIRATIONOrdering Facility: [facility] Address: [address] [place] [address] Result Comment: A - LYMPH NODE FINE [...] Alcohol Fixed Performed By: #### C YTONON ####[place] LABORATORYCLIA [id number] [address] OF [facility] FINAL PERFORMING LAB Normal [facility] Comment on above: Order Comment: Speci men Type: SPECIMEN OBTAINED BY ASPIRATIONOrdering Facility: [facility] Address: [address] [place] [address] Result Comment: Tech nical component, environmental compliance specialist screening performed at [facility], [address] [place] [address] CLIA# [id number] interpretation performed at [facility], [address] [place] [address] CLIA# [id number] Director: Darrius Dsouza M.D. Performed By: #### C YTONON ####[place] LABORATORYCLIA [id number] [address] STATES OF [facility] GROSS DESCRIPTION Normal [facility] Comment on above: Order Comment: Speci men Type: SPECIMEN OBTAINED BY ASPIRATIONOrdering Facility: [facility] Address: [address] [place] [address] Result Comment: A. L YMPH NODE FINE NEEDLE [id number] cc clear pink CytoLyt with scant particles. ThinPrep and Cell Block prepared and 2 smears (1 air dried and 1 fixed).B. PANCREAS FINE NEEDLE [id number] cc clear colorless CytoLyt with scant particles. ThinPrep and Cell Block prepared and 4 smears (2 air dried and 2 fixed). Performed By: #### C YTONON ####[place] LABORATORYCLIA [id number] [place] [id number] [place] Comprehensive metabolic 2000 panelon 08-13-2023 Albumin [Mass/Vol] 3.8 g/dL Low 3.9-4.9 [facility] Comment on above: Order Comment: Speci men Type: BLOOD SPECIMENOrdering Facility: [facility] Address: [address] [place] [address] Performed By: #### 1 9123-9, 79993-8, 2777- ####[place] LABORATORYCLIA [id number] [place] [id number] [place] ALP [Catalytic activity/Vol] 128 U/L High 38-113 [facility] Comment on above: Order Comment: Speci men Type: BLOOD SPECIMENOrdering Facility: [facility] Address: [address] [place] [address] Performed By: #### 1 9123-9, 07314-6, 2776- ####[place] LABORATORYCLIA [id number] [place] [id number] [place] ALT [Catalytic activity/Vol] 19 U/L Normal 10-54 [facility] Comment on above: Order Comment: Speci men Type: BLOOD SPECIMENOrdering Facility: [facility] Address: [address] [place] [address] Performed By: #### 1 9123-9, 27450-8, 2776- ####[place] LABORATORYCLIA [id number] [place] [id number] [place] Anion gap [Moles/Vol] 12 mmol/L Normal 9-18 [facility] Comment on above: Order Comment: Speci men Type: BLOOD SPECIMENOrdering Facility: [facility] Address: [address] [place] [address] Performed By: #### 1 9123-9, 50687-3, 2777-1 ####[place] LABORATORYCLIA [id number] [place] [id number] [place] AST [Catalytic activity/Vol] 22 U/L Normal 14-40 [facility] Comment on above: Order Comment: Speci men Type: BLOOD SPECIMENOrdering Facility: [facility] Address: [address] [place] [address] Performed By: #### 1 9123-9, 01259-7, 2776- ####[facility] LABORATORYCLIA [id number] [place] [id number] [place] Bilirubin [Mass/Vol] 1.0 mg/dL Normal 0.2-1.3 [facility] Comment on above: Order Comment: Speci men Type: BLOOD SPECIMENOrdering Facility: [facility] Address: [address] [place] [address] Performed By: #### 1 9123-9, 30551-7, 2776-08 ####[facility] LABORATORYCLIA [id number] [place] [address] [place] Calcium [Mass/Vol] 9.5 mg/dL Normal 8.5-10.2 [facility] Comment on above: Order Comment: Speci men Type: BLOOD SPECIMENOrdering Facility: [facility] Address: [address] [place] [address] Performed By: #### 1 9123-9, , 2776-08 ####[facility] LABORATORYCLIA [id number] [place] [address] [place] Chloride [Moles/Vol] 95 mmol/L Low 97-105 [facility] Comment on above: Order Comment: Speci men Type: BLOOD SPECIMENOrdering Facility: [facility] Address: [address] [place] [address] Performed By: #### 1 9123-9, 97057-1, 2776- ####[facility] LABORATORYCLIA [id number] [place] [id number] [place] CO2 [Moles/Vol] 29 mmol/L Normal 22-30 [facility] Comment on above: Order Comment: Speci men Type: BLOOD SPECIMENOrdering Facility: [facility] Address: [address] [place] [address] Performed By: #### 1 9123-9, 92409-1, 2776- ####[place] LABORATORYCLIA [id number] [place] [id number] [place] Creatinine [Mass/Vol] 1.19 mg/dL Normal 0.73-1.22 [facility] Comment on above: Order Comment: Arben suarez Type: BLOOD SPECIMENOrdering Facility: [facility] Address: [address] [place] [address] Performed By: #### 1 9123-9, 31371-6, 2776- ####[place] LABORATORYCLIA [id number] [place] [id number] [place] Creatinine and Glomerular filtration rate.predicted panel (S/P/Bld) 67 mL/min/1.73m??? Normal >=60 [facility] Comment on above: Order Comment: Arben suarez Type: BLOOD SPECIMENOrdering Facility: [facility] Address: [address] [place] [address] Result Comment: Bailey mated Glomerular Filtration Rate [...] actual GFR. Performed By: #### 1 9123-9, 06433-8, 2776- ####[place] LABORATORYCLIA [id number] [place] [id number] [place] Glucose [Mass/Vol] 124 mg/dL High 74-99 [facility] Comment on above: Order Comment: Arben daniela Type: BLOOD SPECIMENOrdering Facility: [facility] Address: [address] [place] [address] Result Comment: The [place] Diabetes Association (ADA) provides guidance for cutoff [...] Standards of Medical Care in Diabetes 2016, [place] [employer]. Diabetes Care. 2016.39(Suppl 1). Performed By: #### 1 9123-9, 94585-6, 2776- ####[facility] LABORATORYCLIA [id number] [place] [id number] [place] Potassium [Moles/Vol] 3.5 mmol/L Low 3.7-5.1 [facility] Comment on above: Order Comment: Arben suarez Type: BLOOD SPECIMENOrdering Facility: [facility] Address: [address] [place] [address] Performed By: #### 1 9123-9, 50739-1, 2776-08 ####[facility] LABORATORYCLIA [id number] [place] [address] [place] Protein [Mass/Vol] 7.6 g/dL Normal 6.3-8.0 [facility] Comment on above: Order Comment: Arben suarez Type: BLOOD SPECIMENOrdering Facility: [facility] Address: [address] [place] [address] Performed By: #### 1 9123-9, 69534-0, 2776-08 ####[facility] LABORATORYCLIA [id number] [place] [id number] [place] Sodium [Moles/Vol] 136 mmol/L Normal 136-144 [facility] Comment on above: Order Comment: Miai men Type: BLOOD SPECIMENOrdering Facility: [facility] Address: [address] [place] [address] Performed By: #### 1 9123-9, , 2776-08 ####[facility] LABORATORYCLIA [id number] [place] [id number] [place] Urea nitrogen [Mass/Vol] 37 mg/dL High 9-24 [facility] Comment on above: Order Comment: Speci men Type: BLOOD SPECIMENOrdering Facility: [facility] Address: [place] [address] Performed By: #### 1 9123-9, 48947-1, 2777-1 ####[facility] LABORATORYCLIA [id number] [place] [id number] [place] HISTORY PHYSICALon HISTORY PHYSICAL Normal [facility] Magn[facility] Magnesium [Mass/Vol] 2.2 mg/dL Normal 1.7-2.3 [facility] Comment on above: Order Comment: Speci men Type: BLOOD SPECIMENOrdering Facility: [facility] Address: [place] [address] Performed By: #### 1 9123-9, 76523-4, 2777-1 ####[place] LABORATORYCLIA [id number] [place] [id number] [place] NURSING PROGon 08-13-2023 NURSING PROG Normal [facility] NURSING PROG Normal [facility] NURSING PROG Normal [facility] NUTRITIONon 08-13-2023 NUTRITION Normal [facility] Phosphate [Mass/Vol] 3.2 mg/dL Normal 2.7-4.8 [facility] Comment on above: Order Comment: Speci men Type: BLOOD SPECIMENOrdering Facility: [facility] Address: [address] [place] [address] Performed By: #### 1 9123-9, 73755-5, 2777-1 ####[facility] LABORATORYCLIA [id number] [place] [id number] [place] SURGICAL PATHOLOGYon 023 CASE REPORT Normal [facility] Comment on above: Order Comment: Speci men Type: TISSUE SPECIMENOrdering Facility: [facility] Address: [address] [place] [address] Result Comment: Surg ical Pathology Report Case: [id number] Provider: Stephanie Avery MD Collected: 08/13/2023 11:14 AMOrdering Location: [facility] Received: 08/13/2023 01:36 PM Endoscopy - ENDOPathologist: Robby Jorgensen MD, PhDSpecimens: A) - PANCREAS BIOPSY, core needle biopsy of uncinate process to r/o neuro endocrine tumor B) - LYMPH NODE BIOPSY, core needle biopsy of portal lymph node Performed By: #### S ####[facility] LABCLIA [id number] [place] [address] [place] DIAGNOSIS COMMENT Normal [facility] Comment on above: Order Comment: Speci men Type: TISSUE SPECIMENOrdering Facility: [facility] Address: [address] [place] [address] Result Comment: Manny romo Developed Test (LDT) Disclaimer:Performance characteristics of immunohistochemical, immunofluorescent and chromogenic in-situ hybridization tests have been determined by the performing laboratory within [facility]???s Andreas Ramos [facility] Pathology and Laboratory Medicine [place] ([facility], [facility], [facility], [facility], [facility], [facility], or [facility]) in a manner consistent with CLIA requirements. One or more of these tests have not been cleared or approved by the FDA. [facility] is regulated under CLIA as qualified to perform high-complexity testing. These tests are used for clinical purposes. They should not be regarded as investigational or for research. Positive and negative controls stain appropriately. Performed By: #### S ####[facility] LABCLIA [id number] [address] [place] FINAL DIAGNOSIS [facility] Comment on above: Order Comment: Speci men Type: TISSUE SPECIMENOrdering Facility: [facility] Address: [address] [place] [address] Result Comment: A. 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 Lymph node, biopsy:-Predominantly hemorrhage admixed with some lymphoid tissue and smooth muscle.-No evidence of neoplasm in this material. Performed By: #### S ####[facility] LABCLIA [id number] [place] [address] [place] FINAL PERFORMING LAB Normal [facility] Comment on above: Order Comment: Speci men Type: TISSUE SPECIMENOrdering Facility: [facility] Address: [address] [place] [address] Result Comment: Diag nostic interpretation performed at [facility], [address] [place] [address] CLIA# [id number] Director: Taras Treadwell M.D. Performed By: #### S ####[facility] LABIA [id number] [address] [place] GROSS DESCRIPTION Normal [facility] Comment on above: Order Comment: Speci men Type: TISSUE SPECIMENOrdering Facility: [facility] Address: [address] [place] [address] Result Comment: A. P ANCREAS BIOPSYReceived in [...] submitted in one cassette.Gross examination performed at [facility], [address] [place] [address].AMS August 13, 2023 6:15 PM Performed By: #### S ####[facility] LABCLIA [id number] [place] [address] [place] Upper EUSon 08-13-2023 Upper EUS Normal [facility] XR ABDOMEN 1V SUPINEon 08-13 XR ABDOMEN 1V SUPINE Normal [facility] Bilirub Conj SerPl-mCncon Bilirubin.conjugated [Mass/Vol] 0.4 mg/dL High <0.2 [facility] Comment on above: Order Comment: Speci men Type: BLOOD SPECIMENOrdering Facility: [facility] Address: [address] [place] [address] Performed By: #### 1 5152-2, 61491-3, 2571-8, 67922-5 ####[facility] LABORATORYCLIA [id number] [place] [id number] [place] CASE MANAGEMon 08-12-2023 CASE MANAGEM Normal [facility] CBC panel Auto (Bld)on 08-12 Erythrocyte distribution width (RBC) [Ratio] 11.9 % Normal 11.5-15.0 [facility] Comment on above: Order Comment: Speci men Type: BLOOD SPECIMENOrdering Facility: [facility] Address: [address] [place] [address] Performed By: #### 5 8410-2 ####[facility] LABORATORYCLIA [id number] [address] [place] Hematocrit (Bld) [Volume fraction] 44.8 % Normal 39.0-51.0 [facility] Comment on above: Order Comment: Speci men Type: BLOOD SPECIMENOrdering Facility: [facility] Address: [address] [place] [address] Performed By: #### 5 8410-2 ####[facility] LABORATORYCLIA [id number] [place] [address] [place] Hemoglobin (Bld) [Mass/Vol] 14.9 g/dL Normal 13.0-17.0 [facility] Comment on above: Order Comment: Speci men Type: BLOOD SPECIMENOrdering Facility: [facility] Address: [address] [place] [address] Performed By: #### 5 8410-2 ####[facility] LABORATORYCLIA [id number] [place] [address] [place] MCH (RBC) [Entitic mass] 29.2 pg Normal 26.0-34.0 [facility] Comment on above: Order Comment: Speci men Type: BLOOD SPECIMENOrdering Facility: [facility] Address: [address] [place] [address] Performed By: #### 5 8410-2 ####[facility] LABORATORYCLIA [id number] [place] [id number] [place] MCHC (RBC) [Mass/Vol] 33.3 g/dL Normal 30.5-36.0 [facility] Comment on above: Order Comment: Speci men Type: BLOOD SPECIMENOrdering Facility: [facility] Address: [address] [place] [address] Performed By: #### 5 8410-2 ####[facility] LABORATORYCLIA [id number] [place] [id number] [place] MCV (RBC) [Entitic vol] 87.7 fL Normal 80.0-100.0 [facility] Comment on above: Order Comment: Speci men Type: BLOOD SPECIMENOrdering Facility: [facility] Address: [address] [place] [address] Performed By: #### 5 8410-2 ####[facility] LABORATORYCLIA [id number] [place] [id number] [place] Nucleated RBC (Bld) [#/Vol] 10*3/uL Normal <0.01 [facility] Comment on above: Order Comment: Speci men Type: BLOOD SPECIMENOrdering Facility: [facility] Address: [address] [place] [address] Performed By: #### 5 8410-2 ####[facility] LABORATORYCLIA [id number] [place] [id number] [place] Platelet mean volume (Bld) [Entitic vol] 11.2 fL Normal 9.0-12.7 [facility] Comment on above: Order Comment: Speci men Type: BLOOD SPECIMENOrdering Facility: [facility] Address: [address] [place] [address] Performed By: #### 5 8410-2 ####[facility] LABORATORYCLIA [id number] [address] [place] Platelets (Bld) [#/Vol] 273 10*3/uL Normal 150-400 [facility] Comment on above: Order Comment: Speci men Type: BLOOD SPECIMENOrdering Facility: [facility] Address: [address] [place], [place] [address] [address] Performed By: #### 5 8410-2 ####[place] [facility]ORATORYCLIA [id number] [place] [id number] [place] RBC (Bld) [#/Vol] 5.11 10*6/uL Normal 4.20-6.00 [facility] Comment on above: Order Comment: Speci men Type: BLOOD SPECIMENOrdering Facility: [facility] Address: [address] [place] [address] Performed By: #### 5 8410-2 ####[place] [facility]ORATORYCLIA [id number] [place] [id number] [place] WBC (Bld) [#/Vol] 11.13 10*3/uL High 3.70-11.00 [facility] Comment on above: Order Comment: Speci men Type: BLOOD SPECIMENOrdering Facility: [facility] Address: [address] [place] [address] Performed By: #### 5 8410-2 ####[facility]ORATORYCLIA [id number] [place] [id number] [place] Comprehensive metabolic 2000 panelon 08-12-2023 Albumin [Mass/Vol] 3.7 g/dL Low 3.9-4.9 [facility] Comment on above: Order Comment: Speci men Type: BLOOD SPECIMENOrdering Facility: [facility] Address: [address] [place] [address] Performed By: #### 1 5152-2, 90055-5, 2570-8, 05376-9 ####[facility]ORATORYCLIA [id number] [place] [id number] [place] ALP [Catalytic activity/Vol] 124 U/L High 38-113 [facility] Comment on above: Order Comment: Speci men Type: BLOOD SPECIMENOrdering Facility: [facility] Address: [address] [place] [address] Performed By: #### 1 5152-2, 43242-3, 2570-8, 30635-7 ####[facility]ORATORYCLIA [id number] [place] [address] [place] ALT [Catalytic activity/Vol] 19 U/L Normal 10-54 [facility] Comment on above: Order Comment: Speci men Type: BLOOD SPECIMENOrdering Facility: [facility] Address: [address] [place] [address] Performed By: #### 1 5152-2, 28837-8, 2571-8, 81011-1 ####[facility]ORATORYCLIA [id number] [place] [id number] [place] Anion gap [Moles/Vol] 15 mmol/L Normal 9-18 [facility] Comment on above: Order Comment: Speci men Type: BLOOD SPECIMENOrdering Facility: [facility] Address: [address] [place] [address] Performed By: #### 1 5152-2, 72491-3, 2570-8, 58439-4 ####[facility] [facility]ORATORYCLIA [id number] [place] [id number] [place] AST [Catalytic activity/Vol] 22 U/L Normal 14-40 [facility] Comment on above: Order Comment: Speci men Type: BLOOD SPECIMENOrdering Facility: [facility] Address: [address] [place] [address] Performed By: #### 1 5152-2, 53051-7, 2570-8, 06763-8 ####[facility]ORATORYCLIA [id number] [place] [id number] [place] Bilirubin [Mass/Vol] 1.1 mg/dL Normal 0.2-1.3 [facility] Comment on above: Order Comment: Speci men Type: BLOOD SPECIMENOrdering Facility: [facility] Address: [address] [place] [address] Performed By: #### 1 5152-2, 76659-0, 2570-8, 66466-8 ####[facility]ORATORYCLIA [id number] [place] [address] [place] Calcium [Mass/Vol] 9.6 mg/dL Normal 8.5-10.2 [facility] Comment on above: Order Comment: Speci men Type: BLOOD SPECIMENOrdering Facility: [facility] Address: [address] [place] [address] Performed By: #### 1 5152-2, 57418-7, 2570-8, 86921-0 ####[facility] LABORATORYCLIA [id number] [place] [id number] [place] Chloride [Moles/Vol] 96 mmol/L Low 97-105 [facility] Comment on above: Order Comment: Speci men Type: BLOOD SPECIMENOrdering Facility: [facility] Address: [address] [place] [address] Performed By: #### 1 5152-2, 92207-1, 2570-8, 50718-1 ####[facility] LABORATORYCLIA [id number] [place] [id number] [place] CO2 [Moles/Vol] 26 mmol/L Normal 22-30 [facility] Comment on above: Order Comment: Speci men Type: BLOOD SPECIMENOrdering Facility: [facility] Address: [address] [place] [address] Performed By: #### 1 5152-2, 45006-1, 8, 88604-6 ####[facility] LABORATORYCLIA [id number] [place] [id number] [place] Creatinine [Mass/Vol] 1.28 mg/dL High 0.73-1.22 [facility] Comment on above: Order Comment: Speci men Type: BLOOD SPECIMENOrdering Facility: [facility] Address: [address] [place] [address] Performed By: #### 1 5152-2, 31969-1, 8, 61125-1 ####[facility] LABORATORYCLIA [id number] [place] [id number] [place] Creatinine and Glomerular filtration rate.predicted panel (S/P/Bld) 61 mL/min/1.73m??? Normal >=60 [facility] Comment on above: Order Comment: Speci men Type: BLOOD SPECIMENOrdering Facility: [facility] Address: [address] [place] [address] Result Comment: Bailey mated Glomerular Filtration Rate [...] actual GFR. Performed By: #### 1 5152-2, 90270-4, 2571-03, ####[facility]ORATORYCLIA [id number] [place] [id number] [place] Glucose [Mass/Vol] 110 mg/dL High 74-99 [facility] Comment on above: Order Comment: Arben suarez Type: BLOOD SPECIMENOrdering Facility: [facility] Address: [address] [place] [address] Result Comment: The [place] Diabetes Association (ADA) provides guidance for cutoff [...] Standards of Medical Care in Diabetes 2016, [place] [employer] Association. Diabetes Care. 2016.39(Suppl 1). Performed By: #### 1 5152-2, 71902-8, 2571-03, ####[facility] LABORATORYIA [id number] [place] [address] [place] Potassium [Moles/Vol] 3.7 mmol/L Normal 3.7-5.1 [facility] Comment on above: Order Comment: Arben suarez Type: BLOOD SPECIMENOrdering Facility: [facility] Address: [address] [place] [address] Performed By: #### 1 5152-2, 74698-3, 2571-8, 70213-2 ####[facility]ORATORYCLIA [id number] [place] [address] [place] Protein [Mass/Vol] 7.8 g/dL Normal 6.3-8.0 [facility] Comment on above: Order Comment: Speci men Type: BLOOD SPECIMENOrdering Facility: [facility] Address: [address] [place] [address] Performed By: #### 1 5152-2, 61530-8, 8, 00262-0 ####[facility]ORATORYCLIA [id number] [place] [id number] [place] Sodium [Moles/Vol] 137 mmol/L Normal 136-144 [facility] Comment on above: Order Comment: Speci men Type: BLOOD SPECIMENOrdering Facility: [facility] Address: [address] [place] [address] Performed By: #### 1 5152-2, 05620-4, 8, 54341-1 ####[facility]ORATORYCLIA [id number] [place] [id number] [place] Urea nitrogen [Mass/Vol] 35 mg/dL High 9-24 [facility] Comment on above: Order Comment: Speci men Type: BLOOD SPECIMENOrdering Facility: [facility] Address: [address] [place] [address] Performed By: #### 1 5152-2, 93012-3, 8, 93927-3 ####[facility]ORATORYCLIA [id number] [place] [id number] [place] Magnesium SerPl-mCncon 08-12 Magnesium [Mass/Vol] 2.1 mg/dL Normal 1.7-2.3 [facility] Comment on above: Order Comment: Speci men Type: BLOOD SPECIMENOrdering Facility: [facility] Address: [address] [place] [address] Performed By: #### 1 5152-2, 53891-5, 2570-8, 94937-9 ####[facility]ORATORYCLIA [id number] [place] [id number] [place] NURSING PROGon 08-12-2023 NURSING PROG Normal [facility] NUTRITIONon 08-12-2023 NUTRITION Normal [facility] Phosphate SerPl-mCncon 08-12 Phosphate [Mass/Vol] 3.2 mg/dL Normal 2.7-4.8 [facility] Comment on above: Order Comment: Speci men Type: BLOOD SPECIMENOrdering Facility: [facility] Address: [place] [address] Performed By: #### 2 777-1 ####[facility] LABORATORYCLIA [id number] [place] [id number] [facility] Triglyceride [Mass/Vol] 69 mg/dL Normal <150 [facility] Comment on above: Order Comment: Speci men Type: BLOOD SPECIMENOrdering Facility: [facility] Address: [address] [place] [address] Result Comment: <150 mg/dL, Normal 150-199 mg/dL, Borderline high 200-499 mg/dL, High>499 mg/dL, Very highReference:1. National Cholesterol Education Program ATP III Guideline At-A-Glance Quick Desk Reference: National Heart, Lung, and Blood [place]. National Institutes of Health. 2001: NIH Publication No. 01-3305. Performed By: #### 1 5152-2, 04513-7, 2570-8, 84897-8 ####[facility] LABORATORYCLIA [id number] [place] [id number] [place] Triglyceride [Mass/Vol]on FASTING TIME 0 hrs Normal [facility] Comment on above: Order Comment: Speci men Type: BLOOD SPECIMENOrdering Facility: [facility] Address: [address] [place] [address] Performed By: #### 1 5152-2, 69096-6, 8, 99793-3 ####[facility]ORATORYCLIA [id number] [place] [id number] [place] CASE MANAGEMon 08-11-2023 CASE MANAGEM Normal [facility] CRP SerPl-mCncon 08-11-2023 CRP [Mass/Vol] 4.0 mg/dL High <0.9 [facility] Comment on above: Order Comment: Speci men Type: BLOOD SPECIMENOrdering Facility: [facility] Address: [address] [place] [address] Performed By: #### 2 4328, 1987-12, 2776-08, ####[facility]ORATORYCLIA [id number] [place] [address] [place] [facility] Comprehensive metabolic 2000 panelon 08-11-2023 Albumin [Mass/Vol] 3.8 g/dL Low 3.9-4.9 [facility] Comment on above: Order Comment: Speci men Type: BLOOD SPECIMENOrdering Facility: [facility] Address: [address] [place] [address] Performed By: #### 2 4328, 1987-12, 2776-08, ####[facility] LABORATORYCLIA [id number] [place] [id number] [place] ALP [Catalytic activity/Vol] 107 U/L Normal 38-113 [facility] Comment on above: Order Comment: Speci men Type: BLOOD SPECIMENOrdering Facility: [facility] Address: [address] [place] [address] Performed By: #### 2 4328, 1987-12, 2776-08, ####[facility] LABORATORYCLIA [id number] [place] [id number] [place] ALT [Catalytic activity/Vol] 17 U/L Normal 10-54 [facility] Comment on above: Order Comment: Speci men Type: BLOOD SPECIMENOrdering Facility: [facility] Address: [address] [place] [address] Performed By: #### 2 4328, 1987-12, 2776-08, ####[facility] LABORATORYCLIA [id number] [place] [address] [place] Anion gap [Moles/Vol] 16 mmol/L Normal 9-18 [facility] Comment on above: Order Comment: Speci men Type: BLOOD SPECIMENOrdering Facility: [facility] Address: [address] [place] [address] Performed By: #### 2 8, 1987-12, 2776-08, ####[facility] LABORATORYCLIA [id number] [place] [address] [place] AST [Catalytic activity/Vol] 15 U/L Normal 14-40 [facility] Comment on above: Order Comment: Speci men Type: BLOOD SPECIMENOrdering Facility: [facility] Address: [address] [place] [address] Performed By: #### 2 8, 1987-12, 2776-08, ####[facility] LABORATORYCLIA [id number] [place] [id number] [place] Bilirubin [Mass/Vol] 1.0 mg/dL Normal 0.2-1.3 [facility] Comment on above: Order Comment: Speci men Type: BLOOD SPECIMENOrdering Facility: [facility] Address: [address] [place] [id number] Performed By: #### 2 4328, 1987-12, 2776-08, ####[facility] LABORATORYCLIA [id number] [place] [id number] [place] Calcium [Mass/Vol] 9.4 mg/dL Normal 8.5-10.2 [facility] Comment on above: Order Comment: Speci men Type: BLOOD SPECIMENOrdering Facility: [facility] Address: [address] [place] [address] Performed By: #### 2 4328, 1987-12, 2776-08, ####[facility] LABORATORYCLIA [id number] [place] [id number] [place] Chloride [Moles/Vol] 100 mmol/L Normal 97-105 [facility] Comment on above: Order Comment: Speci men Type: BLOOD SPECIMENOrdering Facility: [facility] Address: [address] [place] [address] Performed By: #### 2 432, 1987-12, 2776-08, ####[facility] LABORATORYCLIA [id number] [place] [address] [place] CO2 [Moles/Vol] 25 mmol/L Normal 22-30 [facility] Comment on above: Order Comment: Speci men Type: BLOOD SPECIMENOrdering Facility: [facility] Address: [address] [place] [address] Performed By: #### 2 43210-30, 1987-12, 2776-08, ####[facility] LABORATORYCLIA [id number] [place] [address] [place] Creatinine [Mass/Vol] 1.38 mg/dL High 0.73-1.22 [facility] Comment on above: Order Comment: Speci men Type: BLOOD SPECIMENOrdering Facility: [facility] Address: [address] [place] [address] Performed By: #### 2 4323-03, 1987-12, 2776-08, ####[facility]ORATORYCLIA [id number] [place] [id number] [place] Creatinine and Glomerular filtration rate.predicted panel (S/P/Bld) 56 mL/min/1.73m??? Low >=60 [facility] Comment on above: Order Comment: Speci men Type: BLOOD SPECIMENOrdering Facility: [facility] Address: [address] [place] [address] Result Comment: Bailey mated Glomerular Filtration Rate [...] Performed By: #### 2 4323, 1987-12, 2776-08, ####[facility] LABORATORYCLIA [id number] [place] [address] [place] Glucose [Mass/Vol] 123 mg/dL High 74-99 [facility] Comment on above: Order Comment: Arben suarez Type: BLOOD SPECIMENOrdering Facility: [facility] Address: [place] [address] Result Comment: The [place] Diabetes Association (ADA) provides guidance for cutoff [...] Standards of Medical Care in Diabetes 2016, [place] [employer]. Diabetes Care. 2016.39(Suppl 1). Performed By: #### 2 43238, 1987-12, 2776-08, ####[facility] LABORATORYCLIA [id number] [place] [address] [place] Potassium [Moles/Vol] 3.3 mmol/L Low 3.7-5.1 [facility] Comment on above: Order Comment: Arben suarez Type: BLOOD SPECIMENOrdering Facility: [facility] Address: [place] [address] Performed By: #### 2 4323, 1987-12, 2776-08, ####[facility] LABORATORYCLIA [id number] [place] [id number] [place] Protein [Mass/Vol] 7.5 g/dL Normal 6.3-8.0 [facility] Comment on above: Order Comment: Arben suarez Type: BLOOD SPECIMENOrdering Facility: [facility] Address: [address] [place] [address] Performed By: #### 2 43210-30, 1987-12, 2776-08, ####[facility] LABORATORYCLIA [id number] [place] [id number] [place] Sodium [Moles/Vol] 141 mmol/L Normal 136-144 [facility] Comment on above: Order Comment: Speci men Type: BLOOD SPECIMENOrdering Facility: [facility] Address: [place] [address] Performed By: #### 2 4323-8, 1987-12, 2776-08, ####[facility]ORATORYCLIA [id number] [place] [address] [place] Urea nitrogen [Mass/Vol] 32 mg/dL High 9-24 [facility] Comment on above: Order Comment: Speci men Type: BLOOD SPECIMENOrdering Facility: [facility] Address: [address] [place] [id number] Performed By: #### 2 4328, 1987-12, 2776-08, ####[facility] LABORATORYCLIA [id number] [place] [id number] [place] Magnesium [facility]11 Magnesium [Mass/Vol] 2.1 mg/dL Normal 1.7-2.3 [facility] Comment on above: Order Comment: Speci men Type: BLOOD SPECIMENOrdering Facility: [facility] Address: [address] [place] [id number] Performed By: #### 2 4328, 1987-12, 2776-08, ####[facility] LABORATORYCLIA [id number] [place] [address] [place] NUTRITIONon 08-11-2023 NUTRITION Normal [facility] Phosphate SerPl-mCncon 08-11 Phosphate [Mass/Vol] 3.9 mg/dL Normal 2.7-4.8 [facility] Comment on above: Order Comment: Speci men Type: BLOOD SPECIMENOrdering Facility: [facility] Address: [address] [place] [id number] Performed By: #### 2 4323-8, 1987-12, 2776-08, ####[facility] LABORATORYCLIA [id number] [place] [address] [place] CBC W Auto Differential pane l (Bld)on 08-10-2023 Basophils (Bld) [#/Vol] 0.04 10*3/uL Normal <0.11 [facility] Comment on above: Order Comment: Speci men Type: BLOOD SPECIMENOrdering Facility: [facility] Address: [address] [place] [address] Performed By: #### 5 7021-8 ####[facility] LABORATORYCLIA [id number] [place] [address] [place] Basophils/100 WBC (Bld) 0.4 % Normal [facility] Comment on above: Order Comment: Speci men Type: BLOOD SPECIMENOrdering Facility: [facility] Address: [address] [place] [address] Performed By: #### 5 7021-8 ####[facility] LABORATORYCLIA [id number] [address] [place] Differential cell count method Nom (Bld) Auto Normal [facility] Comment on above: Order Comment: Speci men Type: BLOOD SPECIMENOrdering Facility: [facility] Address: [address] [place] [address] Performed By: #### 5 7021-8 ####[facility] LABORATORYCLIA [id number] [place] [address] [place] Eosinophils (Bld) [#/Vol] 0.21 10*3/uL Normal <0.46 [facility] Comment on above: Order Comment: Speci men Type: BLOOD SPECIMENOrdering Facility: [facility] Address: [address] [place] [address] Performed By: #### 5 7021-8 ####[facility] LABORATORYCLIA [id number] [place] [address] [place] Eosinophils/100 WBC (Bld) 1.9 % Normal [facility] Comment on above: Order Comment: Speci men Type: BLOOD SPECIMENOrdering Facility: [facility] Address: [address] [place] [address] Performed By: #### 5 7021-8 ####[facility] LABORATORYCLIA [id number] [place] [address] [place] Erythrocyte distribution width (RBC) [Ratio] 12.1 % Normal 11.5-15.0 [facility] Comment on above: Order Comment: Speci men Type: BLOOD SPECIMENOrdering Facility: [facility] Address: [address] [place] [address] Performed By: #### 5 7021-8 ####[facility] LABORATORYCLIA [id number] [address] [place] Hematocrit (Bld) [Volume fraction] 41.9 % Normal 39.0-51.0 [facility] Comment on above: Order Comment: Speci men Type: BLOOD SPECIMENOrdering Facility: [facility] Address: [address] [place] [address] Performed By: #### 5 7021-8 ####[facility] LABORATORYCLIA [id number] [address] [place] Hemoglobin (Bld) [Mass/Vol] 14.3 g/dL Normal 13.0-17.0 [facility] Comment on above: Order Comment: Speci men Type: BLOOD SPECIMENOrdering Facility: [facility] Address: [address] [place] [address] Performed By: #### 5 7021-8 ####[facility] LABORATORYCLIA [id number] [place] [address] [place] Immature granulocytes (Bld) [#/Vol] 0.05 10*3/uL Normal <0.10 [facility] Comment on above: Order Comment: Speci men Type: BLOOD SPECIMENOrdering Facility: [facility] Address: [address] [place] [address] Performed By: #### 5 7021-8 ####[facility] LABORATORYCLIA [id number] [address] [place] Immature granulocytes/100 WBC (Bld) 0.4 % Normal [facility] Comment on above: Order Comment: Speci men Type: BLOOD SPECIMENOrdering Facility: [facility] Address: [address] [place] [address] Performed By: #### 5 7021-8 ####[facility] LABORATORYCLIA [id number] [address] [place] Lymphocytes (Bld) [#/Vol] 0.93 10*3/uL Low 1.00-4.00 [facility] Comment on above: Order Comment: Speci men Type: BLOOD SPECIMENOrdering Facility: [facility] Address: [address] [place] [address] Performed By: #### 5 7021-8 ####[facility] LABORATORYCLIA [id number] [address] Lymphocytes/100 WBC (Bld) 8.4 % Normal [facility] Comment on above: Order Comment: Speci men Type: BLOOD SPECIMENOrdering Facility: [facility] Address: [address] [place] [address] Performed By: #### 5 7021-8 ####[facility] LABORATORYCLIA [id number] [address] [place] MCH (RBC) [Entitic mass] 29.9 pg Normal 26.0-34.0 [facility] Comment on above: Order Comment: Speci men Type: BLOOD SPECIMENOrdering Facility: [facility] Address: [address] [place] [address] Performed By: #### 5 7021-8 ####[facility] LABORATORYCLIA [id number] [address] STATES [facility] MCHC (RBC) [Mass/Vol] 34.1 g/dL Normal 30.5-36.0 [facility] Comment on above: Order Comment: Speci men Type: BLOOD SPECIMENOrdering Facility: [facility] Address: [address] [place] [address] Performed By: #### 5 7021-8 ####[facility] LABORATORYCLIA [id number] [address] [place] MCV (RBC) [Entitic vol] 87.7 fL Normal 80.0-100.0 [facility] Comment on above: Order Comment: Speci men Type: BLOOD SPECIMENOrdering Facility: [facility] Address: [address] [place] [address] Performed By: #### 5 7021-8 ####[facility] LABORATORYCLIA [id number] [place] [id number] [place] Monocytes (Bld) [#/Vol] 1.28 10*3/uL High <0.87 [facility] Comment on above: Order Comment: Speci men Type: BLOOD SPECIMENOrdering Facility: [facility] Address: [address] [place] [address] Performed By: #### 5 7021-8 ####[facility] LABORATORYCLIA [id number] [place] [address] [place] Monocytes/100 WBC (Bld) 11.5 % Normal [facility] Comment on above: Order Comment: Speci men Type: BLOOD SPECIMENOrdering Facility: [facility] Address: [address] [place] [address] Performed By: #### 5 7021-8 ####[facility] LABORATORYCLIA [id number] [place] [address] [place] Neutrophils (Bld) [#/Vol] 8.62 10*3/uL High 1.45-7.50 [facility] Comment on above: Order Comment: Speci men Type: BLOOD SPECIMENOrdering Facility: [facility] Address: [address] [place] [address] Performed By: #### 5 7021-8 ####[facility] LABORATORYCLIA [id number] [address] [place] Neutrophils/100 WBC (Bld) 77.4 % Normal [facility] Comment on above: Order Comment: Speci men Type: BLOOD SPECIMENOrdering Facility: [facility] Address: [address] [place] [address] Performed By: #### 5 7021-8 ####[facility] LABORATORYCLIA [id number] [place] [id number] [place] Nucleated RBC (Bld) [#/Vol] 10*3/uL Normal <0.01 [facility] Comment on above: Order Comment: Speci men Type: BLOOD SPECIMENOrdering Facility: [facility] Address: [address] [place] [address] Performed By: #### 5 7021-8 ####[facility] LABORATORYCLIA [id number] [place] [address] [place] Nucleated RBC/100 WBC (Bld) [Ratio] 0.0 /100 WBC Normal [facility] Comment on above: Order Comment: Speci men Type: BLOOD SPECIMENOrdering Facility: [facility] Address: [address] [place] [address] Performed By: #### 5 7021-8 ####[facility] LABORATORYCLIA [id number] [place] [address] [place] Platelet mean volume (Bld) [Entitic vol] 11.5 fL Normal 9.0-12.7 [facility] Comment on above: Order Comment: Speci men Type: BLOOD SPECIMENOrdering Facility: [facility] Address: [address] [place] [address] Performed By: #### 5 7021-8 ####[facility] LABORATORYCLIA [id number] [place] [address] [place] Platelets (Bld) [#/Vol] 285 10*3/uL Normal 150-400 [facility] Comment on above: Order Comment: Speci men Type: BLOOD SPECIMENOrdering Facility: [facility] Address: [address] [place] [address] Performed By: #### 5 7021-8 ####[facility] LABORATORYCLIA [id number] [place] [address] [place] RBC (Bld) [#/Vol] 4.78 10*6/uL Normal 4.20-6.00 [facility] Comment on above: Order Comment: Speci men Type: BLOOD SPECIMENOrdering Facility: [facility] Address: [address] [place] [address] Performed By: #### 5 7021-8 ####[facility] LABORATORYCLIA [id number] [place] [id number] [place] WBC (Bld) [#/Vol] 11.13 10*3/uL High 3.70-11.00 [facility] Comment on above: Order Comment: Speci men Type: BLOOD SPECIMENOrdering Facility: [facility] Address: [address] [facility] [place] [address] Performed By: #### 5 7021-8 ####[facility] LABORATORYCLIA [id number] [place] [address] [place] Comprehensive metabolic 2000 panelon 08-10-2023 Albumin [Mass/Vol] 4.0 g/dL Normal 3.9-4.9 [facility] Comment on above: Order Comment: Speci men Type: BLOOD SPECIMENOrdering Facility: [facility] Address: [address] [place] [address] Performed By: #### 2 4323-8, , 2776-08 ####[facility] LABORATORYCLIA [id number] [place] [id number] [place] ALP [Catalytic activity/Vol] 111 U/L Normal 38-113 [facility] Comment on above: Order Comment: Speci men Type: BLOOD SPECIMENOrdering Facility: [facility] Address: [address] [place] [address] Performed By: #### 2 4323-8, , 2776-08 ####[facility] LABORATORYCLIA [id number] [place] [id number] [place] ALT [Catalytic activity/Vol] 21 U/L Normal 10-54 [facility] Comment on above: Order Comment: Speci men Type: BLOOD SPECIMENOrdering Facility: [facility] Address: [address] [place] [address] Performed By: #### 2 4323-8, , 2776-08 ####[facility] LABORATORYCLIA [id number] [place] [address] [place] Anion gap [Moles/Vol] 15 mmol/L Normal 9-18 [facility] Comment on above: Order Comment: Speci men Type: BLOOD SPECIMENOrdering Facility: [facility] Address: [address] [address] Performed By: #### 2 4323-8, 18525-7, 2776- ####[facility] LABORATORYCLIA [id number] [place] [id number] [place] AST [Catalytic activity/Vol] 16 U/L Normal 14-40 [facility] Comment on above: Order Comment: Speci men Type: BLOOD SPECIMENOrdering Facility: [facility] Address: [address] [place] [address] Performed By: #### 2 4323-8, , 2776-08 ####[facility] LABORATORYCLIA [id number] [place] [id number] [place] Bilirubin [Mass/Vol] 0.7 mg/dL Normal 0.2-1.3 [facility] Comment on above: Order Comment: Speci men Type: BLOOD SPECIMENOrdering Facility: [facility] Address: [place] [address] Performed By: #### 2 4323-8, , 2776-08 ####[facility] LABORATORYCLIA [id number] [place] [address] [place] Calcium [Mass/Vol] 9.3 mg/dL Normal 8.5-10.2 [facility] Comment on above: Order Comment: Speci men Type: BLOOD SPECIMENOrdering Facility: [facility] Address: [place] [address] Performed By: #### 2 4323-8, , 2776-08 ####[facility] LABORATORYCLIA [id number] [place] [address] [place] Chloride [Moles/Vol] 100 mmol/L Normal 97-105 [facility] Comment on above: Order Comment: Speci men Type: BLOOD SPECIMENOrdering Facility: [facility] Address: [address] [place] [address] Performed By: #### 2 4323-8, , 2776-08 ####[facility] LABORATORYCLIA [id number] [place] [address] [place] CO2 [Moles/Vol] 25 mmol/L Normal 22-30 [facility] Comment on above: Order Comment: Speci men Type: BLOOD SPECIMENOrdering Facility: [facility] Address: [address] [place] [address] Performed By: #### 2 4323-8, 67924-8, 2776- ####[facility] LABORATORYCLIA [id number] [place] [id number] [place] Creatinine [Mass/Vol] 1.34 mg/dL High 0.73-1.22 [facility] Comment on above: Order Comment: Speci men Type: BLOOD SPECIMENOrdering Facility: [facility] Address: [address] [place] [address] Performed By: #### 2 4323-8, 59953-6, 2776-08 ####[facility] LABORATORYCLIA [id number] [place] [id number] [place] Creatinine and Glomerular filtration rate.predicted panel (S/P/Bld) 58 mL/min/1.73m??? Low >=60 [facility] Comment on above: Order Comment: Speci men Type: BLOOD SPECIMENOrdering Facility: [facility] Address: [address] [place] [address] Result Comment: Bailey mated Glomerular Filtration Rate [...] actual GFR. Performed By: #### 2 4323-8, 84548-0, 2776-08 ####[facility] LABORATORYCLIA [id number] [place] [id number] [place] Glucose [Mass/Vol] 105 mg/dL High 74-99 [facility] Comment on above: Order Comment: Speci men Type: BLOOD SPECIMENOrdering Facility: [facility] Address: [address] [address] Result Comment: The [place] [employer] (ADA) provides guidance for cutoff [...] Standards of Medical Care in Diabetes 2016, [place] [employer]. Diabetes Care. 2016.39(Suppl 1). Performed By: #### 2 4323-8, , 2776-08 ####[facility] LABORATORYCLIA [id number] [place] [id number] [place] Potassium [Moles/Vol] 3.6 mmol/L Low 3.7-5.1 [facility] Comment on above: Order Comment: Speci men Type: BLOOD SPECIMENOrdering Facility: [facility] Address: [address] [place] [address] Performed By: #### 2 4323-8, , 2776-08 ####[facility] LABORATORYCLIA [id number] [place] [id number] [place] Protein [Mass/Vol] 7.5 g/dL Normal 6.3-8.0 [facility] Comment on above: Order Comment: Speci men Type: BLOOD SPECIMENOrdering Facility: [facility] Address: [address] [place] [address] Performed By: #### 2 4323-8, , 2776-08 ####[facility] LABORATORYCLIA [id number] [place] [id number] [place] Sodium [Moles/Vol] 140 mmol/L Normal 136-144 [facility] Comment on above: Order Comment: Speci men Type: BLOOD SPECIMENOrdering Facility: [facility] Address: [address] [place] [address] Performed By: #### 2 4323-8, , 2776-08 ####[facility] LABORATORYCLIA [id number] [place] [address] [place] Urea nitrogen [Mass/Vol] 28 mg/dL High 9-24 [facility] Comment on above: Order Comment: Speci men Type: BLOOD SPECIMENOrdering Facility: [facility] Address: [place] [address] Performed By: #### 2 4323-8, , 2776-08 ####[facility] LABORATORYCLIA [id number] [place] [id number] [place] Magnesium SerPl-ncon 08-10 Magnesium [Mass/Vol] 2.0 mg/dL Normal 1.7-2.3 [facility] Comment on above: Order Comment: Speci men Type: BLOOD SPECIMENOrdering Facility: [facility] Address: [place] [address] Performed By: #### 2 4323-8, , 2776-08 ####[facility] LABORATORYCLIA [id number] [place] [address] [place] NURSING PROGon 08-10-2023 NURSING PROG Normal [facility] Phosphate SerPl-mCncon 08-10 Phosphate [Mass/Vol] 3.9 mg/dL Normal 2.7-4.8 [facility] Comment on above: Order Comment: Speci men Type: BLOOD SPECIMENOrdering Facility: [facility] Address: [place] [address] Performed By: #### 2 4323-8, , 2776-08 ####[facility] LABORATORYCLIA [id number] [place] [address] [place] CBC W Auto Differential pane l (Bld)on 08-09-2023 Basophils (Bld) [#/Vol] 0.06 10*3/uL Normal <0.11 [facility] Comment on above: Order Comment: Speci men Type: BLOOD SPECIMENOrdering Facility: [facility] Address: [place] [address] Performed By: #### 5 7021-8 ####[facility] LABORATORYCLIA [id number] [place] [address] [place] Basophils/100 WBC (Bld) 0.6 % Normal [facility] Comment on above: Order Comment: Speci men Type: BLOOD SPECIMENOrdering Facility: [facility] Address: [address] [place] [address] Performed By: #### 5 7021-8 ####GE[facility] LABORATORYCLIA [id number] [place] [id number] [place] Differential cell count method Nom (Bld) Auto Normal [facility] Comment on above: Order Comment: Speci men Type: BLOOD SPECIMENOrdering Facility: [facility] Address: [address] [place] [address] Performed By: #### 5 7021-8 ####[facility] LABORATORYCLIA [id number] [place] [address] [place] Eosinophils (Bld) [#/Vol] 0.28 10*3/uL Normal <0.46 [facility] Comment on above: Order Comment: Speci men Type: BLOOD SPECIMENOrdering Facility: [facility] Address: [address] [place] [address] Performed By: #### 5 7021-8 ####[facility] LABORATORYCLIA [id number] [address] [place] Eosinophils/100 WBC (Bld) 2.9 % Normal [facility] Comment on above: Order Comment: Speci men Type: BLOOD SPECIMENOrdering Facility: [facility] Address: [address] [place] [address] Performed By: #### 5 7021-8 ####GE[facility] LABORATORYCLIA [id number] [place] [id number] [place] Erythrocyte distribution width (RBC) [Ratio] 11.9 % Normal 11.5-15.0 [facility] Comment on above: Order Comment: Speci men Type: BLOOD SPECIMENOrdering Facility: [facility] Address: [address] [place] [address] Performed By: #### 5 7021-8 ####[facility] LABORATORYCLIA [id number] [address] [place] Hematocrit (Bld) [Volume fraction] 38.0 % Low 39.0-51.0 [facility] Comment on above: Order Comment: Speci men Type: BLOOD SPECIMENOrdering Facility: [facility] Address: [address] [place] [address] Performed By: #### 5 7021-8 ####[facility] LABORATORYCLIA [id number] [place] [id number] [place] Hemoglobin (Bld) [Mass/Vol] 13.0 g/dL Normal 13.0-17.0 [facility] Comment on above: Order Comment: Speci men Type: BLOOD SPECIMENOrdering Facility: [facility] Address: [address] [place] [address] Performed By: #### 5 7021-8 ####GE[facility] LABORATORYCLIA [id number] [place] [address] [place] Immature granulocytes (Bld) [#/Vol] 0.05 10*3/uL Normal <0.10 [facility] Comment on above: Order Comment: Speci men Type: BLOOD SPECIMENOrdering Facility: [facility] Address: [address] [place] [address] Performed By: #### 5 7021-8 ####GE[facility] LABORATORYCLIA [id number] [place] [address] [place] Immature granulocytes/100 WBC (Bld) 0.5 % Normal [facility] Comment on above: Order Comment: Speci men Type: BLOOD SPECIMENOrdering Facility: [facility] Address: [address] [place] [address] Performed By: #### 5 7021-8 ####GE[facility] LABORATORYCLIA [id number] [place] [address] [place] Lymphocytes (Bld) [#/Vol] 0.87 10*3/uL Low 1.00-4.00 [facility] Comment on above: Order Comment: Speci men Type: BLOOD SPECIMENOrdering Facility: [facility] Address: [address] [place] [address] Performed By: #### 5 7021-8 ####[facility]ON[facility] LABORATORYCLIA [id number] [place] [address] [place] Lymphocytes/100 WBC (Bld) 9.1 % Normal [facility] Comment on above: Order Comment: Speci men Type: BLOOD SPECIMENOrdering Facility: [facility] Address: [address] [place] [address] Performed By: #### 5 7021-8 ####[facility] LABORATORYCLIA [id number] [place] [address] [place] [facility] MCH (RBC) [Entitic mass] 29.8 pg Normal 26.0-34.0 [facility] Comment on above: Order Comment: Speci men Type: BLOOD SPECIMENOrdering Facility: [facility] Address: [address] [place] [address] Performed By: #### 5 7021-8 ####[facility] LABORATORYCLIA [id number] [place] [address] [place] MCHC (RBC) [Mass/Vol] 34.2 g/dL Normal 30.5-36.0 [facility] Comment on above: Order Comment: Speci men Type: BLOOD SPECIMENOrdering Facility: [facility] Address: [address] [place] [address] Performed By: #### 5 7021-8 ####[facility] LABORATORYCLIA [id number] [address] [place] MCV (RBC) [Entitic vol] 87.2 fL Normal 80.0-100.0 [facility] Comment on above: Order Comment: Speci men Type: BLOOD SPECIMENOrdering Facility: [facility] Address: [address] [place] [address] Performed By: #### 5 7021-8 ####[facility] LABORATORYCLIA [id number] [address] [place] Monocytes (Bld) [#/Vol] 1.22 10*3/uL High <0.87 [facility] Comment on above: Order Comment: Speci men Type: BLOOD SPECIMENOrdering Facility: [facility] Address: [address] [place] [address] Performed By: #### 5 7021-8 ####[facility] LABORATORYCLIA [id number] [place] [address] [place] Monocytes/100 WBC (Bld) 12.8 % Normal [facility] Comment on above: Order Comment: Speci men Type: BLOOD SPECIMENOrdering Facility: [facility] Address: [address] [place] [address] Performed By: #### 5 7021-8 ####[facility] LABORATORYCLIA [id number] [place] [id number] [place] Neutrophils (Bld) [#/Vol] 7.06 10*3/uL Normal 1.45-7.50 [facility] Comment on above: Order Comment: Speci men Type: BLOOD SPECIMENOrdering Facility: [facility] Address: [address] [place] [address] Performed By: #### 5 7021-8 ####[facility] LABORATORYCLIA [id number] [place] [address] [place] Neutrophils/100 WBC (Bld) 74.1 % Normal [facility] Comment on above: Order Comment: Speci men Type: BLOOD SPECIMENOrdering Facility: [facility] Address: [address] [place] [address] Performed By: #### 5 7021-8 ####[facility] LABORATORYCLIA [id number] [place] [id number] [place] Nucleated RBC (Bld) [#/Vol] 10*3/uL Normal <0.01 [facility] Comment on above: Order Comment: Speci men Type: BLOOD SPECIMENOrdering Facility: [facility] Address: [address] [place] [address] Performed By: #### 5 7021-8 ####[facility] LABORATORYCLIA [id number] [place] [id number] [place] Nucleated RBC/100 WBC (Bld) [Ratio] 0.0 /100 WBC Normal [facility] Comment on above: Order Comment: Speci men Type: BLOOD SPECIMENOrdering Facility: [facility] Address: [address] [place] [address] Performed By: #### 5 7021-8 ####[facility] LABORATORYCLIA [id number] [place] [address] [place] Platelet mean volume (Bld) [Entitic vol] 11.2 fL Normal 9.0-12.7 [facility] Comment on above: Order Comment: Speci men Type: BLOOD SPECIMENOrdering Facility: [facility] Address: [address] [place] [address] Performed By: #### 5 7021-8 ####[facility] LABORATORYCLIA [id number] [place] [id number] [place] Platelets (Bld) [#/Vol] 298 10*3/uL Normal 150-400 [facility] Comment on above: Order Comment: Speci men Type: BLOOD SPECIMENOrdering Facility: [facility] Address: [address] [place] [address] Performed By: #### 5 7021-8 ####[facility] LABORATORYCLIA [id number] [place] [address] [place] RBC (Bld) [#/Vol] 4.36 10*6/uL Normal 4.20-6.00 [facility] Comment on above: Order Comment: Speci men Type: BLOOD SPECIMENOrdering Facility: [facility] Address: [address] [place] [address] Performed By: #### 5 7021-8 ####[facility] LABORATORYCLIA [id number] [place] [id number] [place] WBC (Bld) [#/Vol] 9.54 10*3/uL Normal 3.70-11.00 [facility] Comment on above: Order Comment: Speci men Type: BLOOD SPECIMENOrdering Facility: [facility] Address: [address] [place] [address] Performed By: #### 5 7021-8 ####[facility] LABORATORYCLIA [id number] [place] [id number] [place] Comprehensive metabolic 2000 panelon 08-09-2023 Albumin [Mass/Vol] 3.9 g/dL Normal 3.9-4.9 [facility] Comment on above: Order Comment: Speci men Type: BLOOD SPECIMENOrdering Facility: [facility] Address: [address] [place] [address] Performed By: #### 2 4323-8, 2776-08, ####[facility] LABORATORYCLIA [id number] [place] [address] [place] ALP [Catalytic activity/Vol] 110 U/L Normal 38-113 [facility] Comment on above: Order Comment: Speci men Type: BLOOD SPECIMENOrdering Facility: [facility] Address: [address] [place] [address] Performed By: #### 2 4323-8, 2776-08, ####[facility] LABORATORYCLIA [id number] [place] [id number] [place] ALT [Catalytic activity/Vol] 26 U/L Normal 10-54 [facility] Comment on above: Order Comment: Speci men Type: BLOOD SPECIMENOrdering Facility: [facility] Address: [address] [place] [address] Performed By: #### 2 4323-8, 2776-08, ####[facility] LABORATORYCLIA [id number] [place] [id number] [place] Anion gap [Moles/Vol] 11 mmol/L Normal 9-18 [facility] Comment on above: Order Comment: Speci men Type: BLOOD SPECIMENOrdering Facility: [facility] Address: [address] [place] [address] Performed By: #### 2 4323-8, 2776-08, ####[facility] LABORATORYCLIA [id number] [place] [id number] [place] AST [Catalytic activity/Vol] 21 U/L Normal 14-40 [facility] Comment on above: Order Comment: Speci men Type: BLOOD SPECIMENOrdering Facility: [facility] Address: [address] [place] [address] Performed By: #### 2 4323-8, 2776-08, ####[facility] LABORATORYCLIA [id number] [place] [address] [place] Bilirubin [Mass/Vol] 0.6 mg/dL Normal 0.2-1.3 [facility] Comment on above: Order Comment: Speci men Type: BLOOD SPECIMENOrdering Facility: [facility] Address: [address] [place] [address] Performed By: #### 2 4323-8, 2776-08, ####[facility] LABORATORYCLIA [id number] [place] [address] [place] Calcium [Mass/Vol] 9.4 mg/dL Normal 8.5-10.2 [facility] Comment on above: Order Comment: Speci men Type: BLOOD SPECIMENOrdering Facility: [facility] Address: [address] [place] [address] Performed By: #### 2 4323-8, 2776-08, ####[facility] LABORATORYCLIA [id number] [place] [id number] [place] Chloride [Moles/Vol] 104 mmol/L Normal 97-105 [facility] Comment on above: Order Comment: Speci men Type: BLOOD SPECIMENOrdering Facility: [facility] Address: [address] [place] [address] Performed By: #### 2 4323-8, 2776-08, ####[facility] LABORATORYCLIA [id number] [place] [id number] [place] CO2 [Moles/Vol] 23 mmol/L Normal 22-30 [facility] Comment on above: Order Comment: Speci men Type: BLOOD SPECIMENOrdering Facility: [facility] Address: [address] [place] [address] Performed By: #### 2 4323-8, 2776-08, ####[facility] LABORATORYCLIA [id number] [place] [id number] [place] Creatinine [Mass/Vol] 1.52 mg/dL High 0.73-1.22 [facility] Comment on above: Order Comment: Speci men Type: BLOOD SPECIMENOrdering Facility: [facility] Address: [address] [place] [address] Performed By: #### 2 4323-8, 2776-08, ####[facility] LABORATORYCLIA [id number] [place] [id number] [place] Creatinine and Glomerular filtration rate.predicted panel (S/P/Bld) 50 mL/min/1.73m??? Low >=60 [facility] Comment on above: Order Comment: Arben suarez Type: BLOOD SPECIMENOrdering Facility: [facility] Address: [place] [address] Result Comment: Bailey mated Glomerular Filtration Rate [...] GFR. Performed By: #### 2 4323-8, 2777-, ####[facility] LABORATORYCLIA [id number] [place] [id number] [place] Glucose [Mass/Vol] 132 mg/dL High 74-99 [facility] Comment on above: Order Comment: Arben suarez Type: BLOOD SPECIMENOrdering Facility: [facility] Address: [address] [place] [address] Result Comment: The [place] Diabetes Association (ADA) provides guidance for cutoff [...] Standards of Medical Care in Diabetes 2016, [place] [employer]. Diabetes Care. 2016.39(Suppl 1). Performed By: #### 2 4323-8, 2777-, ####[facility] LABORATORYCLIA [id number] [place] [id number] [place] Potassium [Moles/Vol] 3.9 mmol/L Normal 3.7-5.1 [facility] Comment on above: Order Comment: Speci men Type: BLOOD SPECIMENOrdering Facility: [facility] Address: [address] [place] [address] Performed By: #### 2 4323-8, 27702-22, ####[facility] LABORATORYCLIA [id number] [place] [id number] [place] Protein [Mass/Vol] 7.3 g/dL Normal 6.3-8.0 [facility] Comment on above: Order Comment: Speci men Type: BLOOD SPECIMENOrdering Facility: [facility] Address: [address] [place] [address] Performed By: #### 2 4323-8, 2776-08, ####[facility] LABORATORYCLIA [id number] [place] [id number] [place] Sodium [Moles/Vol] 138 mmol/L Normal 136-144 [facility] Comment on above: Order Comment: Speci men Type: BLOOD SPECIMENOrdering Facility: [facility] Address: [address] [place] [address] Performed By: #### 2 4323-8, 2776-08, ####[facility] LABORATORYCLIA [id number] [place] [id number] [place] Urea nitrogen [Mass/Vol] 25 mg/dL High 9-24 [facility] Comment on above: Order Comment: Speci men Type: BLOOD SPECIMENOrdering Facility: [facility] Address: [address] [place] [address] Performed By: #### 2 4323-8, 2776-08, ####[facility] LABORATORYCLIA [id number] [place] [id number] [place] Magnesium SerPl-mCncon 08-09 Magnesium [Mass/Vol] 2.2 mg/dL Normal 1.7-2.3 [facility] Comment on above: Order Comment: Speci men Type: BLOOD SPECIMENOrdering Facility: [facility] Address: [address] [facility] [place] [place] [id number] Performed By: #### 2 4323-8, 277-1, ####[facility] LABORATORYCLIA [id number] [place] [address] [place] NURSING PROGon 08-09-2023 NURSING PROG Normal [facility] NUTRITIONon 08-09-2023 NUTRITION Normal [facility] Phosphate SerPl-mCncon 08-09 Phosphate [Mass/Vol] 3.1 mg/dL Normal 2.7-4.8 [facility] Comment on above: Order Comment: Speci men Type: BLOOD SPECIMENOrdering Facility: [facility] Address: [place] [address] Performed By: #### 2 4323-8, 2771, ####[facility] LABORATORYCLIA [id number] [place] [id number] [place] THERAPY NTon 08-09-2023 THERAPY NT Normal [facility] ALLIED HEALTHon 08-08-2023 ALLIED HEALTH [facility] CASE MGT INIT ASSESon 2022 CASE MGT INIT [facility] CBC W Auto Differential pane l (Bld)on 08-08-2023 Basophils (Bld) [#/Vol] 0.06 10*3/uL Normal <0.11 [facility] Comment on above: Order Comment: Speci men Type: BLOOD SPECIMENOrdering Facility: [facility] Address: [address] [place] [address] Performed By: #### 5 7021-8 ####[facility] LABORATORYCLIA [id number] [place] [id number] [place] Basophils/100 WBC (Bld) 0.7 % Normal [facility] Comment on above: Order Comment: Speci men Type: BLOOD SPECIMENOrdering Facility: [facility] Address: [place] [address] Performed By: #### 5 7021-8 ####[facility] LABORATORYCLIA [id number] [address] [place] Differential cell count method Nom (Bld) Auto Normal [facility] Comment on above: Order Comment: Speci men Type: BLOOD SPECIMENOrdering Facility: [facility] Address: [address] [place] [address] Performed By: #### 5 7021-8 ####[facility] LABORATORYCLIA [id number] [place] [address] [place] Eosinophils (Bld) [#/Vol] 0.14 10*3/uL Normal <0.46 [facility] Comment on above: Order Comment: Speci men Type: BLOOD SPECIMENOrdering Facility: [facility] Address: [address] [place] [address] Performed By: #### 5 7021-8 ####[facility] LABORATORYCLIA [id number] [address] [place] Eosinophils/100 WBC (Bld) 1.7 % Normal [facility] Comment on above: Order Comment: Speci men Type: BLOOD SPECIMENOrdering Facility: [facility] Address: [address] [place] [address] Performed By: #### 5 7021-8 ####[facility] LABORATORYCLIA [id number] [address] [place] Erythrocyte distribution width (RBC) [Ratio] 11.9 % Normal 11.5-15.0 [facility] Comment on above: Order Comment: Speci men Type: BLOOD SPECIMENOrdering Facility: [facility] Address: [address] [place] [address] Performed By: #### 5 7021-8 ####[facility] LABORATORYCLIA [id number] [address] [place] Hematocrit (Bld) [Volume fraction] 39.6 % Normal 39.0-51.0 [facility] Comment on above: Order Comment: Speci men Type: BLOOD SPECIMENOrdering Facility: [facility] Address: [address] [place] [address] Performed By: #### 5 7021-8 ####[facility] LABORATORYCLIA [id number] [place] [address] [place] Hemoglobin (Bld) [Mass/Vol] 13.7 g/dL Normal 13.0-17.0 [facility] Comment on above: Order Comment: Speci men Type: BLOOD SPECIMENOrdering Facility: [facility] Address: [address] [place] [address] Performed By: #### 5 7021-8 ####[facility] LABORATORYCLIA [id number] [place] [address] [place] Immature granulocytes (Bld) [#/Vol] 0.06 10*3/uL Normal <0.10 [facility] Comment on above: Order Comment: Speci men Type: BLOOD SPECIMENOrdering Facility: [facility] Address: [address] [place] [address] Performed By: #### 5 7021-8 ####[facility] LABORATORYCLIA [id number] [place] [address] [place] Immature granulocytes/100 WBC (Bld) 0.7 % Normal [facility] Comment on above: Order Comment: Speci men Type: BLOOD SPECIMENOrdering Facility: [facility] Address: [address] [place] [address] Performed By: #### 5 7021-8 ####[facility] LABORATORYCLIA [id number] [place] [address] [place] Lymphocytes (Bld) [#/Vol] 1.02 10*3/uL Normal 1.00-4.00 [facility] Comment on above: Order Comment: Speci men Type: BLOOD SPECIMENOrdering Facility: [facility] Address: [address] [place] [address] Performed By: #### 5 7021-8 ####[facility] LABORATORYCLIA [id number] [place] [address] [place] Lymphocytes/100 WBC (Bld) 12.1 % Normal [facility] Comment on above: Order Comment: Speci men Type: BLOOD SPECIMENOrdering Facility: [facility] Address: [address] [place] [address] Performed By: #### 5 7021-8 ####[facility] LABORATORYCLIA [id number] [place] [address] [place] MCH (RBC) [Entitic mass] 29.9 pg Normal 26.0-34.0 [facility] Comment on above: Order Comment: Speci men Type: BLOOD SPECIMENOrdering Facility: [facility] Address: [address] [place] [address] Performed By: #### 5 7021-8 ####[facility] LABORATORYCLIA [id number] [place] [id number] [place] MCHC (RBC) [Mass/Vol] 34.6 g/dL Normal 30.5-36.0 [facility] Comment on above: Order Comment: Speci men Type: BLOOD SPECIMENOrdering Facility: [facility] Address: [address] [place] [address] Performed By: #### 5 7021-8 ####[facility] LABORATORYCLIA [id number] [place] [address] [place] MCV (RBC) [Entitic vol] 86.5 fL Normal 80.0-100.0 [facility] Comment on above: Order Comment: Speci men Type: BLOOD SPECIMENOrdering Facility: [facility] Address: [address] [place] [address] Performed By: #### 5 7021-8 ####[facility] LABORATORYCLIA [id number] [place] [address] [place] Monocytes (Bld) [#/Vol] 0.78 10*3/uL Normal <0.87 [facility] Comment on above: Order Comment: Speci men Type: BLOOD SPECIMENOrdering Facility: [facility] Address: [address] [place] [address] Performed By: #### 5 7021-8 ####[facility] LABORATORYCLIA [id number] [address] [place] Monocytes/100 WBC (Bld) 9.3 % Normal [facility] Comment on above: Order Comment: Speci men Type: BLOOD SPECIMENOrdering Facility: [facility] Address: [address] [place] [address] Performed By: #### 5 7021-8 ####[facility] LABORATORYCLIA [id number] [place] [id number] [place] Neutrophils (Bld) [#/Vol] 6.37 10*3/uL Normal 1.45-7.50 [facility] Comment on above: Order Comment: Speci men Type: BLOOD SPECIMENOrdering Facility: [facility] Address: [address] [place] [address] Performed By: #### 5 7021-8 ####[facility] LABORATORYCLIA [id number] [place] [id number] [place] Neutrophils/100 WBC (Bld) 75.5 % Normal [facility] Comment on above: Order Comment: Speci men Type: BLOOD SPECIMENOrdering Facility: [facility] Address: [address] [place] [address] Performed By: #### 5 7021-8 ####[facility] LABORATORYCLIA [id number] [place] [id number] [place] Nucleated RBC (Bld) [#/Vol] 10*3/uL Normal <0.01 [facility] Comment on above: Order Comment: Speci men Type: BLOOD SPECIMENOrdering Facility: [facility] Address: [address] [place] [address] Performed By: #### 5 7021-8 ####[facility] LABORATORYCLIA [id number] [place] [address] [place] Nucleated RBC/100 WBC (Bld) [Ratio] 0.0 /100 WBC Normal [facility] Comment on above: Order Comment: Speci men Type: BLOOD SPECIMENOrdering Facility: [facility] Address: [address] [place] [address] Performed By: #### 5 7021-8 ####[facility] LABORATORYCLIA [id number] [place] [address] [place] Platelet mean volume (Bld) [Entitic vol] 11.3 fL Normal 9.0-12.7 [facility] Comment on above: Order Comment: Speci men Type: BLOOD SPECIMENOrdering Facility: [facility] Address: [address] [place] [address] Performed By: #### 5 7021-8 ####[facility] LABORATORYCLIA [id number] [place] [address] [place] Platelets (Bld) [#/Vol] 320 10*3/uL Normal 150-400 [facility] Comment on above: Order Comment: Speci men Type: BLOOD SPECIMENOrdering Facility: [facility] Address: [address] [place] [address] Performed By: #### 5 7021-8 ####[facility] LABORATORYCLIA [id number] [place] [id number] [place] RBC (Bld) [#/Vol] 4.58 10*6/uL Normal 4.20-6.00 [facility] Comment on above: Order Comment: Speci men Type: BLOOD SPECIMENOrdering Facility: [facility] Address: [address] [place] [address] Performed By: #### 5 7021-8 ####[facility] LABORATORYCLIA [id number] [place] [id number] [place] WBC (Bld) [#/Vol] 8.43 10*3/uL Normal 3.70-11.00 [facility] Comment on above: Order Comment: Speci men Type: BLOOD SPECIMENOrdering Facility: [facility] Address: [address] [place] [address] Performed By: #### 5 7021-8 ####[facility] LABORATORYCLIA [id number] [place] [id number] [place] CONSULTon 08-08-2023 CONSULT Normal [facility] CT PANCREAS/PELVIS W IVCONon 08-08-2023 CT PANCREAS/PELVIS W IVCON Normal [facility] Comprehensive metabolic 2000 panelon 08-08-2023 Albumin [Mass/Vol] 4.5 g/dL Normal 3.9-4.9 [facility] Comment on above: Order Comment: Speci men Type: BLOOD SPECIMENOrdering Facility: [facility] Address: [address] [place] [address] Performed By: #### 2 777-1, , ####[facility] LABORATORYCLIA [id number] [place] [address] [place] ALP [Catalytic activity/Vol] 114 U/L High 38-113 [facility] Comment on above: Order Comment: Speci men Type: BLOOD SPECIMENOrdering Facility: [facility] Address: [address] [place] [address] Performed By: #### 2 777-1, , ####[facility] LABORATORYCLIA [id number] [place] [id number] [place] ALT [Catalytic activity/Vol] 30 U/L Normal 10-54 [facility] Comment on above: Order Comment: Speci men Type: BLOOD SPECIMENOrdering Facility: [facility] Address: [address] [place] [address] Performed By: #### 2 777-1, , ####[facility] LABORATORYCLIA [id number] [place] [id number] [place] Anion gap [Moles/Vol] 17 mmol/L Normal 9-18 [facility] Comment on above: Order Comment: Speci men Type: BLOOD SPECIMENOrdering Facility: [facility] Address: [address] [place] [address] Performed By: #### 2 777-1, , ####[facility] LABORATORYCLIA [id number] [place] [id number] [place] AST [Catalytic activity/Vol] 27 U/L Normal 14-40 [facility] Comment on above: Order Comment: Speci men Type: BLOOD SPECIMENOrdering Facility: [facility] Address: [address] [place] [address] Performed By: #### 2 777-1, , ####[facility] LABORATORYCLIA [id number] [place] [address] [place] Bilirubin [Mass/Vol] 0.5 mg/dL Normal 0.2-1.3 [facility] Comment on above: Order Comment: Speci men Type: BLOOD SPECIMENOrdering Facility: [facility] Address: [address] [facility] [address] Performed By: #### 2 777-1, , ####[facility] LABORATORYCLIA [id number] [place] [address] [place] Calcium [Mass/Vol] 9.7 mg/dL Normal 8.5-10.2 [facility] Comment on above: Order Comment: Speci men Type: BLOOD SPECIMENOrdering Facility: [facility] Address: [address] [place] [address] Performed By: #### 2 777-1, , ####[facility] LABORATORYCLIA [id number] [place] [id number] [place] Chloride [Moles/Vol] 102 mmol/L Normal 97-105 [facility] Comment on above: Order Comment: Speci men Type: BLOOD SPECIMENOrdering Facility: [facility] Address: [address] [place] [address] Performed By: #### 2 777-1, , ####[facility] LABORATORYCLIA [id number] [place] [id number] [place] CO2 [Moles/Vol] 18 mmol/L Low 22-30 [facility] Comment on above: Order Comment: Speci men Type: BLOOD SPECIMENOrdering Facility: [facility] Address: [address] [place] [address] Performed By: #### 2 777-1, , ####[facility] LABORATORYCLIA [id number] [place] [address] [place] Creatinine [Mass/Vol] 1.86 mg/dL High 0.73-1.22 [facility] Comment on above: Order Comment: Speci men Type: BLOOD SPECIMENOrdering Facility: [facility] Address: [address] [place] [address] Performed By: #### 2 777-1, , ####[facility] LABORATORYCLIA [id number] [place] [address] [place] Creatinine and Glomerular filtration rate.predicted panel (S/P/Bld) 39 mL/min/1.73m??? Low >=60 [facility] Comment on above: Order Comment: Arben suarez Type: BLOOD SPECIMENOrdering Facility: [facility] Address: [address] [place] [address] Result Comment: Bailey mated Glomerular Filtration Rate [...] actual GFR. Performed By: #### 2 777-1, 07568-5, ####[facility] LABORATORYCLIA [id number] [place] [id number] [place] Glucose [Mass/Vol] 87 mg/dL Normal 74-99 [facility] Comment on above: Order Comment: Arben suarez Type: BLOOD SPECIMENOrdering Facility: [facility] Address: [address] [place] [address] Result Comment: The [place] [employer] (ADA) provides guidance for cutoff [...] Standards of Medical Care in Diabetes 2016, [place] [employer]. Diabetes Care. 2016.39(Suppl 1). Performed By: #### 2 777-1, 08610-5, ####[facility] LABORATORYCLIA [id number] [place] [id number] [place] Potassium [Moles/Vol] 4.2 mmol/L Normal 3.7-5.1 [facility] Comment on above: Order Comment: Speci men Type: BLOOD SPECIMENOrdering Facility: [facility] Address: [place] [address] Performed By: #### 2 777-1, , ####[facility] LABORATORYCLIA [id number] [place] [id number] [place] Protein [Mass/Vol] 7.6 g/dL Normal 6.3-8.0 [facility] Comment on above: Order Comment: Speci men Type: BLOOD SPECIMENOrdering Facility: [facility] Address: [place] [address] Performed By: #### 2 777-1, , ####[facility] LABORATORYCLIA [id number] [place] [address] [place] Sodium [Moles/Vol] 137 mmol/L Normal 136-144 [facility] Comment on above: Order Comment: Speci men Type: BLOOD SPECIMENOrdering Facility: [facility] Address: [place] [address] Performed By: #### 2 777-1, , ####GEOVANNA LABORATORYCLIA [id number] [place] [id number] [place] Urea nitrogen [Mass/Vol] 33 mg/dL High 9-24 [facility] Comment on above: Order Comment: Speci men Type: BLOOD SPECIMENOrdering Facility: [facility] Address: [place] [address] Performed By: #### 2 777-1, , ####[facility] LABORATORYCLIA [id number] [place] [id number] [place] ECG COMPLETEon 08-08-2023 ECG COMPLETE Normal [facility] Magnesium SerPl-mCncon 08-08 Magnesium [Mass/Vol] 2.2 mg/dL Normal 1.7-2.3 [facility] Comment on above: Order Comment: Speci men Type: BLOOD SPECIMENOrdering Facility: [facility] Address: [address] [place] [address] Performed By: #### 2 777-1, 15327-2, ####GEOVANNA LABORATORYCLIA [id number] [place] [id number] [place] NUTRITIONon 08-08-2023 NUTRITION Normal [facility] NUTRITION Normal [facility] Phosphate SerPl-mCncon 08-08 Phosphate [Mass/Vol] 3.4 mg/dL Normal 2.7-4.8 [facility] Comment on above: Order Comment: Speci men Type: BLOOD SPECIMENOrdering Facility: [facility] Address: [address] [place] [address] Performed By: #### 2 777-1, 25921-9, ####GEOVANNA LABORATORYCLIA [id number] [place] [id number] [place] THERAPY NTon 08-08-2023 THERAPY NT Normal [facility] Urinalysis complete panel (U )on 08-08-2023 Bilirubin Ql (U) Negative Normal Negative [facility] Comment on above: Order Comment: Speci men Type: URINE SPECIMENOrdering Facility: [facility] Address: [address] [place] [address] Performed By: #### 2 4356-8 ####GEOVANNA LABORATORYCLIA [id number] [place] [address] [place] Clarity (Unsp spec) Clear Normal Clear [facility] Comment on above: Order Comment: Speci men Type: URINE SPECIMENOrdering Facility: [facility] Address: [address] [place] [address] Performed By: #### 2 4356-8 ####GEOVANNA LABORATORYCLIA [id number] [place] [id number] [place] Color (U) Light Yellow Normal Yellow [facility] Comment on above: Order Comment: Speci men Type: URINE SPECIMENOrdering Facility: [facility] Address: [address] [place] [address] Performed By: #### 2 4356-8 ####GEOVANNA LABORATORYCLIA [id number] [address] STATES [facility] Glucose Test strip (U) [Mass/Vol] Negative Normal Trace, Negative [facility] Comment on above: Order Comment: Speci men Type: URINE SPECIMENOrdering Facility: [facility] Address: [address] [place] [address] Performed By: #### 2 4356-8 ####[facility] LABORATORYCLIA [id number] [place] [address] [place] Hemoglobin Ql (U) Negative Normal Negative, Trace [facility] Comment on above: Order Comment: Speci men Type: URINE SPECIMENOrdering Facility: [facility] Address: [address] [place] [address] Performed By: #### 2 4356-8 ####[facility] LABORATORYCLIA [id number] [address] STATES [facility] Hyaline casts (Urine sed) [#/Area] 4-10 /LPF Abnormal 0 /LPF [facility] Comment on above: Order Comment: Speci men Type: URINE SPECIMENOrdering Facility: [facility] Address: [address] [place] [address] Performed By: #### 2 4356-8 ####[facility] LABORATORYCLIA [id number] [address] Ketones Ql (U) Trace Normal Negative, Trace [facility] Comment on above: Order Comment: Speci men Type: URINE SPECIMENOrdering Facility: [facility] Address: [address] [place] [address] Performed By: #### 2 4356-8 ####GEOVANNA LABORATORYCLIA [id number] [address] [place] Leukocyte esterase Test strip Ql (U) Negative Normal Negative, 25 Angle/uL [facility] Comment on above: Order Comment: Speci men Type: URINE SPECIMENOrdering Facility: [facility] Address: [address] [place] [address] Performed By: #### 2 4356-8 ####GEOVANNA LABORATORYCLIA [id number] [place] [address] [place] Nitrite Ql (U) Negative Normal Negative [facility] Comment on above: Order Comment: Speci men Type: URINE SPECIMENOrdering Facility: [facility] Address: [address] [place] [address] Performed By: #### 2 4356-8 ####[facility] LABORATORYCLIA [id number] [place] [address] [place] pH (U) 6.5 [pH] Normal 5.0-8.0 [facility] Comment on above: Order Comment: Speci men Type: URINE SPECIMENOrdering Facility: [facility] Address: [address] [place] [address] Performed By: #### 2 4356-8 ####[facility] LABORATORYCLIA [id number] [address] [place] Protein (U) [Mass/Vol] 1+ Abnormal Trace , Negative [facility] Comment on above: Order Comment: Speci men Type: URINE SPECIMENOrdering Facility: [facility] Address: [address] [place] [address] Performed By: #### 2 4356-8 ####[facility] LABORATORYCLIA [id number] [place] [address] [place] RBC LM.HPF (Urine sed) [#/Area] 0-3 /HPF Normal 0-3 /HPF [facility] Comment on above: Order Comment: Speci men Type: URINE SPECIMENOrdering Facility: [facility] Address: [address] [place] [address] Performed By: #### 2 4356-8 ####[facility] LABORATORYCLIA [id number] [address] [place] Specific gravity (U) [Rel density] >1.050 High 1.005-1.03 0 [facility] Comment on above: Order Comment: Speci men Type: URINE SPECIMENOrdering Facility: [facility] Address: [address] [place] [address] Performed By: #### 2 4356-8 ####[facility] LABORATORYCLIA [id number] [place] [address] [place] Urobilinogen Ql (U) Negative Normal Negative [facility] Comment on above: Order Comment: Speci men Type: URINE SPECIMENOrdering Facility: [facility] Address: [address] [place] [address] Performed By: #### 2 4356-8 ####GEOVANNA LABORATORYCLIA [id number] [place] [address] [place] WBC LM.HPF (Urine sed) [#/Area] 0-5 /HPF Normal 0-5 /HPF [facility] Comment on above: Order Comment: Speci men Type: URINE SPECIMENOrdering Facility: [facility] Address: [address] [place] [address] Performed By: #### 2 4356-8 ####[facility] LABORATORYCLIA [id number] [place] [address] [place] ALLIED HEALTHon 08-07-2023 ALLIED HEALTH Normal [facility] CBC W Auto Differential pane l (Bld)on 08-07-2023 Basophils (Bld) [#/Vol] 0.06 10*3/uL Normal <0.11 [facility] Comment on above: Order Comment: Speci men Type: BLOOD SPECIMENOrdering Facility: [facility] Address: [address] [place] [address] Performed By: #### 5 7021-8 ####[facility] LABORATORYCLIA [id number] [place] [address] [place] Basophils/100 WBC (Bld) 0.6 % Normal [facility] Comment on above: Order Comment: Speci men Type: BLOOD SPECIMENOrdering Facility: [facility] Address: [address] [place] [address] Performed By: #### 5 7021-8 ####[facility] LABORATORYCLIA [id number] [place] [address] [place] Differential cell count method Nom (Bld) Auto Normal [facility] Comment on above: Order Comment: Speci men Type: BLOOD SPECIMENOrdering Facility: [facility] Address: [address] [place] [address] Performed By: #### 5 7021-8 ####GEOVANNA LABORATORYCLIA [id number] [place] [address] [place] Eosinophils (Bld) [#/Vol] 0.08 10*3/uL Normal <0.46 [facility] Comment on above: Order Comment: Speci men Type: BLOOD SPECIMENOrdering Facility: [facility] Address: [address] [place] [address] Performed By: #### 5 7021-8 ####GEOVANNA LABORATORYCLIA [id number] [address] OF [place] Eosinophils/100 WBC (Bld) 0.8 % Normal [facility] Comment on above: Order Comment: Speci men Type: BLOOD SPECIMENOrdering Facility: [facility] Address: [address] [place] [address] Performed By: #### 5 7021-8 ####GEOVANNA LABORATORYCLIA [id number] [address] [place] Erythrocyte distribution width (RBC) [Ratio] 11.9 % Normal 11.5-15.0 [facility] Comment on above: Order Comment: Speci men Type: BLOOD SPECIMENOrdering Facility: [facility] Address: [address] [place] [address] Performed By: #### 5 7021-8 ####GEOVANNA LABORATORYCLIA [id number] [address] [place] Hematocrit (Bld) [Volume fraction] 43.6 % Normal 39.0-51.0 [facility] Comment on above: Order Comment: Speci men Type: BLOOD SPECIMENOrdering Facility: [facility] Address: [address] [place] [address] Performed By: #### 5 7021-8 ####[facility] LABORATORYCLIA [id number] [address] [place] Hemoglobin (Bld) [Mass/Vol] 14.9 g/dL Normal 13.0-17.0 [facility] Comment on above: Order Comment: Speci men Type: BLOOD SPECIMENOrdering Facility: [facility] Address: [address] [place] [address] Performed By: #### 5 7021-8 ####[facility] LABORATORYCLIA [id number] [place] [id number] [place] Immature granulocytes (Bld) [#/Vol] 0.10 10*3/uL High <0.10 [facility] Comment on above: Order Comment: Speci men Type: BLOOD SPECIMENOrdering Facility: [facility] Address: [address] [place] [address] Performed By: #### 5 7021-8 ####[facility] LABORATORYCLIA [id number] [address] [place] Immature granulocytes/100 WBC (Bld) 1.0 % Normal [facility] Comment on above: Order Comment: Speci men Type: BLOOD SPECIMENOrdering Facility: [facility] Address: [address] [place] [address] Performed By: #### 5 7021-8 ####[facility] LABORATORYCLIA [id number] [place] [address] [place] Lymphocytes (Bld) [#/Vol] 1.20 10*3/uL Normal 1.00-4.00 [facility] Comment on above: Order Comment: Speci men Type: BLOOD SPECIMENOrdering Facility: [facility] Address: [address] [place] [address] Performed By: #### 5 7021-8 ####[facility] LABORATORYCLIA [id number] [place] [address] [place] Lymphocytes/100 WBC (Bld) 12.1 % Normal [facility] Comment on above: Order Comment: Speci men Type: BLOOD SPECIMENOrdering Facility: [facility] Address: [address] [place] [address] Performed By: #### 5 7021-8 ####[facility] LABORATORYCLIA [id number] [place] [id number] [place] MCH (RBC) [Entitic mass] 29.4 pg Normal 26.0-34.0 [facility] Comment on above: Order Comment: Speci men Type: BLOOD SPECIMENOrdering Facility: [facility] Address: [address] [place] [address] Performed By: #### 5 7021-8 ####[facility] LABORATORYCLIA [id number] [place] [id number] [place] MCHC (RBC) [Mass/Vol] 34.2 g/dL Normal 30.5-36.0 [facility] Comment on above: Order Comment: Speci men Type: BLOOD SPECIMENOrdering Facility: [facility] Address: [address] [place] [address] Performed By: #### 5 7021-8 ####[facility] LABORATORYCLIA [id number] [place] [id number] [place] MCV (RBC) [Entitic vol] 86.0 fL Normal 80.0-100.0 [facility] Comment on above: Order Comment: Speci men Type: BLOOD SPECIMENOrdering Facility: [facility] Address: [address] [place] [address] Performed By: #### 5 7021-8 ####[facility] LABORATORYCLIA [id number] [place] [address] [place] Monocytes (Bld) [#/Vol] 0.97 10*3/uL High <0.87 [facility] Comment on above: Order Comment: Speci men Type: BLOOD SPECIMENOrdering Facility: [facility] Address: [address] [place] [address] Performed By: #### 5 7021-8 ####[facility] LABORATORYCLIA [id number] [place] [id number] [place] Monocytes/100 WBC (Bld) 9.7 % Normal [facility] Comment on above: Order Comment: Speci men Type: BLOOD SPECIMENOrdering Facility: [facility] Address: [address] [place] [address] Performed By: #### 5 7021-8 ####[facility] LABORATORYCLIA [id number] [place] [id number] [place] Neutrophils (Bld) [#/Vol] 7.54 10*3/uL High 1.45-7.50 [facility] Comment on above: Order Comment: Speci men Type: BLOOD SPECIMENOrdering Facility: [facility] Address: [address] [place] [address] Performed By: #### 5 7021-8 ####GEOVANNA LABORATORYCLIA [id number] [place] [id number] [place] Neutrophils/100 WBC (Bld) 75.8 % Normal [facility] Comment on above: Order Comment: Speci men Type: BLOOD SPECIMENOrdering Facility: [facility] Address: [address] [place] [address] Performed By: #### 5 7021-8 ####GEOVANNA LABORATORYCLIA [id number] [place] [address] [place] Nucleated RBC (Bld) [#/Vol] 10*3/uL Normal <0.01 [facility] Comment on above: Order Comment: Speci men Type: BLOOD SPECIMENOrdering Facility: [facility] Address: [address] [place] [address] Performed By: #### 5 7021-8 ####GEOVANNA LABORATORYCLIA [id number] [place] [address] [place] Nucleated RBC/100 WBC (Bld) [Ratio] 0.0 /100 WBC Normal [facility] Comment on above: Order Comment: Speci men Type: BLOOD SPECIMENOrdering Facility: [facility] Address: [address] [place] [address] Performed By: #### 5 7021-8 ####GEOVANNA LABORATORYCLIA [id number] [place] [id number] [place] Platelet mean volume (Bld) [Entitic vol] 11.6 fL Normal 9.0-12.7 [facility] Comment on above: Order Comment: Speci men Type: BLOOD SPECIMENOrdering Facility: [facility] Address: [address] [place] [address] Performed By: #### 5 7021-8 ####[facility] LABORATORYCLIA [id number] [place] [id number] [place] Platelets (Bld) [#/Vol] 374 10*3/uL Normal 150-400 [facility] Comment on above: Order Comment: Speci men Type: BLOOD SPECIMENOrdering Facility: [facility] Address: [address] [place] [address] Performed By: #### 5 7021-8 ####[facility] LABORATORYCLIA [id number] [place] [id number] [place] RBC (Bld) [#/Vol] 5.07 10*6/uL Normal 4.20-6.00 [facility] Comment on above: Order Comment: Speci men Type: BLOOD SPECIMENOrdering Facility: [facility] Address: [address] [place] [address] Performed By: #### 5 7021-8 ####[facility] LABORATORYCLIA [id number] [place] [address] [place] [facility] WBC (Bld) [#/Vol] 9.95 10*3/uL Normal 3.70-11.00 [facility] Comment on above: Order Comment: Speci men Type: BLOOD SPECIMENOrdering Facility: [facility] Address: [address] [place] [address] Performed By: #### 5 7021-8 ####[facility] LABORATORYCLIA [id number] [place] [id number] [facility] CNOVon 08-07-2023 CNOV Office Visit (GENNOM ) -------- AISHA JULIEN ([id number]) 1955 M Date Time Provider Department 08/07/23 [...] and gum (more content not included)... Normal [facility] CRP [Mass/Vol] mg/L Normal <0.9 [facility] Comment on above: Order Comment: Speci men Type: BLOOD SPECIMENOrdering Facility: [facility] Address: [address] [place] [address] Performed By: #### 2 276-41987-12 ####[facility] LABORATORYCLIA [id number] [place] [address] [place] Comprehensive metabolic 2000 panelon 08-07-2023 Albumin [Mass/Vol] 4.6 g/dL Normal 3.9-4.9 [facility] Comment on above: Order Comment: Speci men Type: BLOOD SPECIMENOrdering Facility: [facility] Address: [address] [place] [address] Performed By: #### 3 040-3, , ####[facility] LABORATORYCLIA [id number] [place] [address] [place] ALP [Catalytic activity/Vol] 127 U/L High 38-113 [facility] Comment on above: Order Comment: Speci men Type: BLOOD SPECIMENOrdering Facility: [facility] Address: [address] [place] [address] Performed By: #### 3 040-3, , ####[facility] LABORATORYCLIA [id number] [place] [id number] [place] ALT [Catalytic activity/Vol] 35 U/L Normal 10-54 [facility] Comment on above: Order Comment: Speci men Type: BLOOD SPECIMENOrdering Facility: [facility] Address: [address] [place] [address] Performed By: #### 3 040-3, , ####[facility] LABORATORYCLIA [id number] [place] [id number] [place] Anion gap [Moles/Vol] 18 mmol/L Normal 9-18 [facility] Comment on above: Order Comment: Speci men Type: BLOOD SPECIMENOrdering Facility: [facility] Address: [address] [place] [address] Performed By: #### 3 040-3, , ####[facility] LABORATORYCLIA [id number] [place] [address] [place] AST [Catalytic activity/Vol] 30 U/L Normal 14-40 [facility] Comment on above: Order Comment: Speci men Type: BLOOD SPECIMENOrdering Facility: [facility] Address: [address] [place] [address] Performed By: #### 3 040-3, , ####GE[facility] LABORATORYCLIA [id number] [place] [id number] [place] Bilirubin [Mass/Vol] 0.5 mg/dL Normal 0.2-1.3 [facility] Comment on above: Order Comment: Speci men Type: BLOOD SPECIMENOrdering Facility: [facility] Address: [address] [place] [address] Performed By: #### 3 040-3, , ####GEOVANNA LABORATORYCLIA [id number] [place] [address] [place] Calcium [Mass/Vol] 9.9 mg/dL Normal 8.5-10.2 [facility] Comment on above: Order Comment: Speci men Type: BLOOD SPECIMENOrdering Facility: [facility] Address: [address] [place] [address] Performed By: #### 3 040-3, , ####GEOVANNA LABORATORYCLIA [id number] [place] [id number] [place] Chloride [Moles/Vol] 93 mmol/L Low 97-105 [facility] Comment on above: Order Comment: Speci men Type: BLOOD SPECIMENOrdering Facility: [facility] Address: [address] [place] [address] Performed By: #### 3 040-3, , ####GEOVANNA LABORATORYCLIA [id number] [place] [id number] [place] CO2 [Moles/Vol] 19 mmol/L Low 22-30 [facility] Comment on above: Order Comment: Speci men Type: BLOOD SPECIMENOrdering Facility: [facility] Address: [address] [place] [address] Performed By: #### 3 040-3, , ####GE[facility]NA LABORATORYCLIA [id number] [place] [address] [place] Creatinine [Mass/Vol] 2.20 mg/dL High 0.73-1.22 [facility] Comment on above: Order Comment: Arben suarez Type: BLOOD SPECIMENOrdering Facility: [facility] Address: [address] [place] [address] Performed By: #### 3 040-3, , ####[facility] LABORATORYCLIA [id number] [place] [id number] [place] Creatinine and Glomerular filtration rate.predicted panel (S/P/Bld) 32 mL/min/1.73m??? Low >=60 [facility] Comment on above: Order Comment: Arben suarez Type: BLOOD SPECIMENOrdering Facility: [facility] Address: [address] [place] [address] Result Comment: Bailey mated Glomerular Filtration Rate [...] GFR. Performed By: #### 3 040-3, , ####[facility] LABORATORYCLIA [id number] [place] [id number] [place] Glucose [Mass/Vol] 108 mg/dL High 74-99 [facility] Comment on above: Order Comment: Arben suarez Type: BLOOD SPECIMENOrdering Facility: [facility] Address: [address] [place] [address] Result Comment: The [place] [employer] (ADA) provides guidance for cutoff [...] Standards of Medical Care in Diabetes 2016, [place] [employer]. Diabetes Care. 2016.39(Suppl 1). Performed By: #### 3 040-3, , ####GE[facility] LABORATORYCLIA [id number] [place] [address] [place] Potassium [Moles/Vol] 3.7 mmol/L Normal 3.7-5.1 [facility] Comment on above: Order Comment: Speci men Type: BLOOD SPECIMENOrdering Facility: [facility] Address: [address] [place] [address] Performed By: #### 3 040-3, , ####GE[facility] LABORATORYCLIA [id number] [place] [id number] [place] Protein [Mass/Vol] 8.4 g/dL High 6.3-8.0 [facility] Comment on above: Order Comment: Speci men Type: BLOOD SPECIMENOrdering Facility: [facility] Address: [address] [place] [address] Performed By: #### 3 040-3, , ####GE[facility] LABORATORYCLIA [id number] [place] [id number] [place] Sodium [Moles/Vol] 130 mmol/L Low 136-144 [facility] Comment on above: Order Comment: Speci men Type: BLOOD SPECIMENOrdering Facility: [facility] Address: [address] [place] [address] Performed By: #### 3 040-3, , ####GE[facility] LABORATORYCLIA [id number] [place] [id number] [place] Urea nitrogen [Mass/Vol] 37 mg/dL High 9-24 [facility] Comment on above: Order Comment: Speci men Type: BLOOD SPECIMENOrdering Facility: [facility] Address: [address] [place] [address] Performed By: #### 3 040-3, , 56612-3 ####GEOVANNA LABORATORYCLIA [id number] [place] [id number] [facility] ED PROV NOTEon 08-07-2023 ED PROV NOTE Normal [facility] ED Triage Noteon 08-07-2023 ED Triage Note Normal [facility] Ferritin SerPl-mCncon 2022 Ferritin [Mass/Vol] 723.9 ng/mL High 30.3-565.7 [facility] Comment on above: Order Comment: Speci men Type: BLOOD SPECIMENOrdering Facility: [facility] Address: [facility] [place] [address] Performed By: #### 2 276-4, 1987-12 ####[facility] LABORATORYCLIA [id number] [place] [id number] [facility] HISTORY PHYSICALon HISTORY PHYSICAL Normal [facility] HISTORY PHYSICAL HNO ID: [id number] Author: Cleveland Alberts MD Service: ? Author [...] normal and (more content not included)... Normal [facility] Lipase SerPl-cCncon 08-07-20 Lipase [Catalytic activity/Vol] 154 U/L High 16-61 [facility] Comment on above: Order Comment: Speci men Type: BLOOD SPECIMENOrdering Facility: [facility] Address: [place] [address] Performed By: #### 3 040-3, , ####[facility] LABORATORYCLIA [id number] [place] [id number] [place] Magnesium SerPl-mCncon 08-07 Magnesium [Mass/Vol] 1.6 mg/dL Low 1.7-2.3 [facility] Comment on above: Order Comment: Speci men Type: BLOOD SPECIMENOrdering Facility: [facility] Address: [place] [address] Performed By: #### 3 040-3, , ####[facility] LABORATORYCLIA [id number] [place] [id number] [place] PT panel Coag (PPP)on 2022 INR Coag (PPP) [Relative time] 1.0 {INR} Normal 0.9-1.3 [facility] Comment on above: Order Comment: Arben suarez Type: BLOOD SPECIMENOrdering Facility: [facility] Address: [place] [address] Result Comment: Karissa min K Antagonist (VKA) Therapeutic Range: INR 2 to 3 (Target INR of 2.5)Note: For patients treated with VKA drugs, such as warfarin, the [employer] 2012 Guideline recommends [...] al. Chest 2012, 141:7S-47SNishpalmer RA, et al. [facility] 2017, 70: 252-289 Performed By: #### 3 4528-0, 07723-9 ####[facility] LABORATORYCLIA [id number] [place] [address] [place] PT Coag (PPP) [Time] 11.6 s Normal 9.7-13.0 [facility] Comment on above: Order Comment: Arben suarez Type: BLOOD SPECIMENOrdering Facility: [facility] Address: [place] [address] Performed By: #### 3 4528-0, 67108-4 ####[facility] LABORATORYCLIA [id number] [place] [address] [place] Prealb SerPl-mCncon 08-07-20 Prealbumin [Mass/Vol] 18 mg/dL Normal 17-36 [facility] Comment on above: Order Comment: Arben suarez Type: BLOOD SPECIMENOrdering Facility: [facility] Address: [place] [address] Performed By: #### 3 034-6, 84243-0 ####[facility] LABCLIA [id number] [facility] [id number] [place] [address] [place] TYPE + SCREENon 08-07-2023 ABO A [facility] Comment on above: Order Comment: Speci men Type: BLOOD SPECIMENOrdering Facility: [facility] Address: [address] [place] [address] Performed By: #### T SCR ####[facility] BLOOD BANKCLIA [id number] [address] HISTORICAL AB SCR STATUS Negative [facility] Comment on above: Order Comment: Speci men Type: BLOOD SPECIMENOrdering Facility: [facility] Address: [address] [place] [address] Performed By: #### T SCR ####[facility]LOOD BANKCLIA [id number] [place] [address] [place] Rh Nom (Bld) Positive [facility] Comment on above: Order Comment: Speci men Type: BLOOD SPECIMENOrdering Facility: [facility] Address: [address] [place] [address] Performed By: #### T SCR ####[facility]LOOD BANKCLIA [id number] [place] [address] [place] [facility] TYPE AND SCREEN EXPIRATION 08/10/2023 23:59 [facility] Comment on above: Order Comment: Speci men Type: BLOOD SPECIMENOrdering Facility: [facility] Address: [address] [place] [address] Performed By: #### T SCR ####[facility] BLOOD BANKCLIA [id number] [place] [address] [place] Transferrin SerPl-mCncon Transferrin [Mass/Vol] 250 mg/dL Normal 200-360 [facility] Comment on above: Order Comment: Speci men Type: BLOOD SPECIMENOrdering Facility: [facility] Address: [address] [place] [address] Performed By: #### 3 034-6, 40190-8 ####[facility] LABCLIA [id number] [id number] [id number] [place] XR ABDOMEN 1V SUPINEon 08-07 XR ABDOMEN 1V SUPINE Normal [facility] aPTT PPPon 08-07-2023 aPTT Coag (PPP) [Time] 29.9 s Normal 23.0-32.4 [facility] Comment on above: Order Comment: Speci men Type: BLOOD SPECIMENOrdering Facility: [facility] Address: [address] [place] [address] Performed By: #### 3 4528-0, 20451-1 ####[facility] LABORATORYCLIA [id number] [address] OF [facility] CNPAisha 08-06-2023 CNPN Telephone ([id number]) -------- AISHA JULIEN ([id number]) 1955 M Date Time Provider Department 08/06/23 [facility] [id number] During your visit today, we recorded the following information about you: Pantera Rojas 08/06/2023 9:08 AM Signed Received records from [facility]. Scanned into [employer]. Please review, thank you! Allergies As of Date: 08/06/2023 (No Known Allergies) Date Reviewed: Never Reviewed Reason for Visit: Received Outside Medical Records [[id number]] Prescriptions as of 10/07/2023 - potassium (POTASSIMIN [...] Encounter Status:Closed by PANTERA ROJAS on 10/07/23 [facility] Judy 08-05-2023 [facility] Telephone ([id number]) -------- AISHA JULIEN ([id number]) 1955 M Date Time Provider Department 08/05/23 [facility] [id number] During your visit today, we recorded the [...] appointment. *Requested images to be pushed from [employer] 08/05. Also faxed release of information to patients PCP - Dr. Cannon in [facility]. Allergies As of Date: 08/05/2023 (No Known [...] Encounter Status:Closed by JESSIE ZAMORA on 08/05/23 Normal [facility] Telephone (GASTNO) -------- MARY BETHAISHA ([id number]) 1955 M Date Time Provider Department 08/05/23 BETY AMIN During your visit today, we recorded the following information about you: Ирина Samuel RN 08/05/2023 4:35 PM Signed Referred from Dr. Linder for EUS w/ FNA for duodenal mass. Dr. Amin please review and advise. H AND P, meds updated in [employer]. Will also forward to Dr. Alberts and [...] control regim (more content not included)... Normal [facility] CNPAisha 07-29-2023 CNPN Telephone ([id number]) -------- AISHA JULIEN ([id number]) 1955 M Date Time Provider Department 07/29/23 [facility] [id number] During your visit today, we recorded the following information about you: Vicki Rosario 07/29/2023 3:53 PM Addendum New patient referral from Dr. Linder's office ([phone]) to Dr. Alberts for Duodenal Mass. Contacted the office to resend records. Please advise on scheduling Allergies As of Date: 07/29/2023 (Not on File) Date Reviewed: Never Reviewed Reason for Visit: Appointment [186] Problem List As Of Date: 07/29/2023 (None) Encounter Status:Closed by VICKI ROSARIO on 07/29/23 Normal [facility] Basic Metabolic Panelon 12-0 Anion gap [Moles/Vol] 11.9 mmol/L Normal 6.0-15.0 [facility] Comment on above: Performed By: #### P TT, CMP, BNP, PT, DIFF CBC, MG, HS TROP, LACTIC #### [facility] [address] Calcium [Mass/Vol] 8.5 mg/dL Low 8.6-10.3 [facility] Comment on above: Performed By: #### P TT, CMP, BNP, PT, DIFF CBC, MG, HS TROP, LACTIC #### [facility] [address] Chloride [Moles/Vol] 105 mmol/L Normal 98-107 [facility] Comment on above: Performed By: #### P TT, CMP, BNP, PT, DIFF CBC, MG, HS TROP, LACTIC #### [address] CO2 [Moles/Vol] 26.0 mmol/L Normal 21.0-31.0 [facility] Comment on above: Performed By: #### P TT, CMP, BNP, PT, DIFF CBC, MG, HS TROP, LACTIC #### [address] Creatinine [Mass/Vol] 1.71 mg/dL Significan t change up 0.70-1.30 [facility] Comment on above: Performed By: #### P TT, CMP, BNP, PT, DIFF CBC, MG, HS TROP, LACTIC #### [address] Creatinine Clr Calc Pharmacy 41.35 Normal [facility] Comment on above: Result Comment: PERF ORMED BY: [place] [address] PATHOLOGIST TELEMEDICINE PHYSICIAN RAHEL TREVINO M.D. Performed By: #### P TT, CMP, BNP, PT, DIFF CBC, MG, HS TROP, LACTIC #### [address] GFR/1.73 sq M.predicted MDRD (S/P/Bld) [Vol rate/Area] 43.064 mL/min/{1.73_m2} Normal [facility] Comment on above: Performed By: #### P TT, CMP, BNP, PT, DIFF CBC, MG, HS TROP, LACTIC #### [facility] [address] Glucose [Mass/Vol] 115 mg/dL High 70-100 [facility] Comment on above: Result Comment: [facility] Glucose Reference Range is dependent on time and content of last meal. Glucose of more than 200 mg/dL in a nonstressed, ambulatory subject supports the diagnosis of Diabetes Mellitus. ADA recommended reference range Performed By: #### P TT, CMP, BNP, PT, DIFF CBC, MG, HS TROP, LACTIC #### [facility] [address] Potassium [Moles/Vol] 3.9 mmol/L Normal 3.5-5.1 [facility] Comment on above: Performed By: #### P TT, CMP, BNP, PT, DIFF CBC, MG, HS TROP, LACTIC #### [facility] [address] Sodium [Moles/Vol] 139 mmol/L Normal 136-145 [facility] Comment on above: Performed By: #### P TT, CMP, BNP, PT, DIFF CBC, MG, HS TROP, LACTIC #### [facility] [address] Urea nitrogen [Mass/Vol] 29 mg/dL High 7-25 [facility] Comment on above: Performed By: #### P TT, CMP, BNP, PT, DIFF CBC, MG, HS TROP, LACTIC #### [facility] [address] [place] [address] [place] Basophils Auto (Bld) [#/Vol] Ordered By: Gela Eller on 07-26-2023 Basophils (Bld) [#/Vol] 0.0 10*3/uL 0.0-0.2 [facility] Basophils/100 WBC Auto (Bld) Ordered By: Gela Eller on 07-26-2023 Basophils/100 WBC (Bld) 0.9 % . [facility] Calcium [Mass/volume] in Ser um or PlasmaOrdered By: Gela Eller on 07-26-2023 Calcium [Mass/Vol] 8.5 mg/dL 8.6-10.3 [facility] Carbon dioxide, total [Moles /volume] in Serum or PlasmaOrdered By: Gela Eller on 07-26-2023 CO2 [Moles/Vol] 26.0 mmol/L 21.0-31.0 [facility] Chloride [Moles/volume] in S sadi or PlasmaOrdered By: Gela Eller on 07-26-2023 Chloride [Moles/Vol] 105 mmol/L 98-107 [facility] Complete Blood Count Auto Di ffon 07-26-2023 Basophils (Bld) [#/Vol] 0.0 10*3/uL Normal 0.0-0.2 [facility] Comment on above: Result Comment: PERF ORMED BY: [place] [address] PATHOLOGIST TELEMEDICINE PHYSICIAN RAHEL TREVINO M.D. Performed By: #### P TT, CMP, BNP, PT, DIFF CBC, MG, HS TROP, LACTIC #### [facility] [address] [place] [address] Basophils/100 WBC (Bld) 0.9 % Normal . [facility] Comment on above: Performed By: #### P TT, CMP, BNP, PT, DIFF CBC, MG, HS TROP, LACTIC #### [facility] [address] [place] [address] [place] Eosinophils (Bld) [#/Vol] 0.4 10*3/uL Normal 0.0-0.45 [facility] Comment on above: Performed By: #### P TT, CMP, BNP, PT, DIFF CBC, MG, HS TROP, LACTIC #### [facility] [address] [place] [address] [place] Eosinophils/100 WBC (Bld) 7.7 % Normal . [facility] Comment on above: Performed By: #### P TT, CMP, BNP, PT, DIFF CBC, MG, HS TROP, LACTIC #### [address] Erythrocyte distribution width (RBC) [Ratio] 12.1 % Normal 12.0-14.8 [facility] Comment on above: Performed By: #### P TT, CMP, BNP, PT, DIFF CBC, MG, HS TROP, LACTIC #### [address] Hematocrit (Bld) [Volume fraction] 31.2 % Low 38.8-50.0 [facility] Comment on above: Performed By: #### P TT, CMP, BNP, PT, DIFF CBC, MG, HS TROP, LACTIC #### [address] Hemoglobin (Bld) [Mass/Vol] 10.6 g/dL Low 13.0-17.0 [facility] Comment on above: Performed By: #### P TT, CMP, BNP, PT, DIFF CBC, MG, HS TROP, LACTIC #### [address] Lymphocytes (Bld) [#/Vol] 0.8 10*3/uL Low 1.00-4.8 [facility] Comment on above: Performed By: #### P TT, CMP, BNP, PT, DIFF CBC, MG, HS TROP, LACTIC #### [address] Lymphocytes/100 WBC (Bld) 15.8 % Normal . [facility] Comment on above: Performed By: #### P TT, CMP, BNP, PT, DIFF CBC, MG, HS TROP, LACTIC #### [address] MCH (RBC) [Entitic mass] 30.1 pg Normal 27.5-35.2 [facility] Comment on above: Performed By: #### P TT, CMP, BNP, PT, DIFF CBC, MG, HS TROP, LACTIC #### [address] MCV (RBC) [Entitic vol] 88.6 fL Normal 83.5-101 F [facility] Comment on above: Performed By: #### P TT, CMP, BNP, PT, DIFF CBC, MG, HS TROP, LACTIC #### [address] Mean Corpuscular HGB Conc 34.0 g/dL Normal 32.5-35.6 [facility] Comment on above: Performed By: #### P TT, CMP, BNP, PT, DIFF CBC, MG, HS TROP, LACTIC #### [address] Monocytes (Bld) [#/Vol] 1.1 10*3/uL High 0.0-0.8 [facility] Comment on above: Performed By: #### P TT, CMP, BNP, PT, DIFF CBC, MG, HS TROP, LACTIC #### [address] Monocytes/100 WBC (Bld) 22.7 % Normal . [facility] Comment on above: Performed By: #### P TT, CMP, BNP, PT, DIFF CBC, MG, HS TROP, LACTIC #### [address] Neutrophils (Bld) [#/Vol] 2.6 10*3/uL Normal 1.8-7.7 [facility] Comment on above: Performed By: #### P TT, CMP, BNP, PT, DIFF CBC, MG, HS TROP, LACTIC #### [address] Neutrophils/100 WBC (Bld) 52.9 % Normal . [facility] Comment on above: Performed By: #### P TT, CMP, BNP, PT, DIFF CBC, MG, HS TROP, LACTIC #### [address] NRBC% 0.2 /100{WBC} Normal 0-0.5 [facility] Comment on above: Performed By: #### P TT, CMP, BNP, PT, DIFF CBC, MG, HS TROP, LACTIC #### [facility] [address] Platelet mean volume (Bld) [Entitic vol] 10.2 fL High 6.6-10.1 [facility] Comment on above: Performed By: #### P TT, CMP, BNP, PT, DIFF CBC, MG, HS TROP, LACTIC #### [address] Platelets (Bld) [#/Vol] 190 10*3/uL Normal 150-450 [facility] Comment on above: Performed By: #### P TT, CMP, BNP, PT, DIFF CBC, MG, HS TROP, LACTIC #### [address] RBC (Bld) [#/Vol] 3.52 10*6/uL Low 3.90-5.60 [facility] Comment on above: Performed By: #### P TT, CMP, BNP, PT, DIFF CBC, MG, HS TROP, LACTIC #### [address] WBC (Bld) [#/Vol] 5.0 10*3/uL Normal 4.1-10.5 [facility] Comment on above: Performed By: #### P TT, CMP, BNP, PT, DIFF CBC, MG, HS TROP, LACTIC #### [address] Creatinine [Mass/volume] in Serum or PlasmaOrdered By: Gela Eller on 07-26-2023 Creatinine [Mass/Vol] 1.71 mg/dL 0.70-1.30 [facility] Comment on above: Delta: 2.86 on 07/25 Eosinophils Auto (Bld) [#/Vo l]Ordered By: Gela Eller on 07-26-2023 Eosinophils (Bld) [#/Vol] 0.4 10*3/uL 0.0-0.45 [facility] Eosinophils/100 WBC Auto (Bl d)Ordered By: Gela Eller on 07-26-2023 Eosinophils/100 WBC (Bld) 7.7 % . [facility] Erythrocyte distribution wid th Auto (RBC) [Ratio]Ordered By: Gela Eller on 07-26-2023 Erythrocyte distribution width (RBC) [Ratio] 12.1 % 12.0-14.8 [facility] Glucose [Mass/volume] in Ser um or PlasmaOrdered By: Gela Eller on 07-26-2023 Glucose [Mass/Vol] 115 mg/dL 70-100 [facility] Comment on above: ADA recommended refe rence rangeRandom Glucose Reference Range is dependent on time and content of last meal. Glucose of more than 200 mg/dL in a nonstressed, ambulatory subject supports the diagnosis of Diabetes Mellitus. Hematocrit Auto (Bld) [Volum e fraction]Ordered By: Gela Eller on 07-26-2023 Hematocrit (Bld) [Volume fraction] 31.2 % 38.8-50.0 [facility] Hemoglobin [Mass/volume] in BloodOrdered By: Gela Eller on 07-26-2023 Hemoglobin (Bld) [Mass/Vol] 10.6 g/dL 13.0-17.0 [facility] Leukocytes [#/volume] correc johnnie for nucleated erythrocytes in Blood by Automated counOrdered By: Gela Eller on 07-26-2023 WBC corrected for nucl RBC Auto (Bld) [#/Vol] 5.0 10*3/uL 4.1-10.5 [facility] Lymphocytes Auto (Bld) [#/Vo l]Ordered By: Gela Eller on 07-26-2023 Lymphocytes (Bld) [#/Vol] 0.8 10*3/uL 1.00-4.8 [facility] Lymphocytes/100 WBC Auto (Bl d)Ordered By: Gela Eller on 07-26-2023 Lymphocytes/100 WBC (Bld) 15.8 % . [facility] MCH Auto (RBC) [Entitic mass ]Ordered By: Gela Eller on 07-26-2023 MCH (RBC) [Entitic mass] 30.1 pg 27.5-35.2 [facility] MCHC Auto (RBC) [Mass/Vol]Or dered By: Gela Eller on 07-26-2023 MCHC (RBC) [Mass/Vol] 34.0 g/dL 32.5-35.6 [facility] MCV Auto (RBC) [Entitic vol] Ordered By: Gela Eller on 07-26-2023 MCV (RBC) [Entitic vol] 88.6 fL 83.5-101 [facility] Monocytes Auto (Bld) [#/Vol] Ordered By: Gela Eller on 07-26-2023 Monocytes (Bld) [#/Vol] 1.1 10*3/uL 0.0-0.8 [facility] Monocytes/100 WBC Auto (Bld) Ordered By: Gela Eller on 07-26-2023 Monocytes/100 WBC (Bld) 22.7 % . F [facility] Neutrophils Auto (Bld) [#/Vo l]Ordered By: Gela Eller on 07-26-2023 Neutrophils (Bld) [#/Vol] 2.6 10*3/uL 1.8-7.7 [facility] Neutrophils/100 WBC Auto (Bl d)Ordered By: Gela Eller on 07-26-2023 Neutrophils/100 WBC (Bld) 52.9 % . [facility] No Panel InformationOrdered By: Gela Eller on 07-26-2023 Estimated GFR (CKD-EPI) 43.064 mL/Min [facility] Creatinine Clearance (Chem 41.35 [facility] Nucleated erythrocytes [Pres ence] in Blood by Automated countOrdered By: Gela Eller on 07-26-2023 Nucleated RBC Auto Ql (Bld) 0.2 /100{WBC} 0-0.5 [facility] Platelet mean volume Auto (B ld) [Entitic vol]Ordered By: Gela Eller on 07-26-2023 Platelet mean volume (Bld) [Entitic vol] 10.2 fL 6.6-10.1 [facility] Platelets Auto (Bld) [#/Vol] Ordered By: Gela Eller on 07-26-2023 Platelets (Bld) [#/Vol] 190 10*3/uL 150-450 [facility] Potassium [Moles/volume] in Serum or PlasmaOrdered By: Gela Eller on 07-26-2023 Potassium [Moles/Vol] 3.9 mmol/L 3.5-5.1 [facility] RBC Auto (Bld) [#/Vol]Ordere d By: Gela Rhoadese on 07-26-2023 RBC (Bld) [#/Vol] 3.52 10*6/uL 3.90-5.60 [facility] Serum or plasma anion gap de terminationOrdered By: Gela Eller on 07-26-2023 Anion gap [Moles/Vol] 11.9 mmol/L 6.0-15.0 [facility] Sodium [Moles/volume] in Ser um or PlasmaOrdered By: Gela Rhoadese on 07-26-2023 Sodium [Moles/Vol] 139 mmol/L 136-145 [facility] Urea nitrogen [Mass/volume] in Serum or PlasmaOrdered By: Gela Eller on 07-26-2023 Urea nitrogen [Mass/Vol] 29 mg/dL 7-25 [facility] WBC Auto (Bld) [#/Vol]Ordere d By: Gela Rhoadese on 07-26-2023 WBC (Bld) [#/Vol] 5.0 10*3/uL 4.1-10.5 [facility] Alanine aminotransferase [En zymatic activity/volume] in Serum or PlasmaOrdered By: Gela Eller on 07-25-2023 ALT [Catalytic activity/Vol] 9 U/L 7-52 [facility] Albumin [Mass/volume] in Ser um or Plasma by Bromocresol green (BCG) dye binding methoOrdered By: Gela Eller on 07-25-2023 Albumin BCG dye [Mass/Vol] 3.4 g/dL 3.5-5.7 [facility] Alkaline phosphatase [Enzyma tic activity/volume] in Serum or PlasmaOrdered By: Gela Eller on 07-25-2023 ALP [Catalytic activity/Vol] 60 U/L 34-104 [facility] Aspartate aminotransferase [ Enzymatic activity/volume] in Serum or PlasmaOrdered By: Gela Eller on 07-25-2023 AST [Catalytic activity/Vol] 16 U/L 13-39 [facility] Basic Metabolic Panelon Anion gap [Moles/Vol] 11.8 mmol/L Normal 6.0-15.0 [facility] Comment on above: Order Comment: Comme nt pls call w K level Performed By: #### B MP #### [facility] [address] Calcium [Mass/Vol] 8.3 mg/dL Low 8.6-10.3 [facility] Comment on above: Order Comment: Comme nt pls call w K level Performed By: #### B MP #### [facility] [address] Chloride [Moles/Vol] 97 mmol/L Low 98-107 [facility] Comment on above: Order Comment: Comme nt pls call w K level Performed By: #### B MP #### [facility] [address] CO2 [Moles/Vol] 31.8 mmol/L High 21.0-31.0 [facility] Comment on above: Order Comment: Comme nt pls call w K level Performed By: #### B MP #### [facility] [address] [place] [address] [place] Creatinine [Mass/Vol] 3.42 mg/dL Significan t change up 0.70-1.30 [facility] Comment on above: Order Comment: Comme nt pls call w K level Performed By: #### B MP #### [facility] [address] [place] [address] [place] Creatinine Clr Calc Pharmacy 20.67 Normal [facility] Comment on above: Order Comment: Comme nt pls call w K level Result Comment: PERF ORMED BY: [place] [address] PATHOLOGIST TELEMEDICINE PHYSICIAN JIANLAN SUN M.D. Performed By: #### B MP #### [facility] [address] GFR/1.73 sq M.predicted MDRD (S/P/Bld) [Vol rate/Area] 18.745 mL/min/{1.73_m2} Normal [facility] Comment on above: Order Comment: Comme nt pls call w K level Performed By: #### B MP #### [address] Glucose [Mass/Vol] 86 mg/dL Normal 70-100 [facility] Comment on above: Order Comment: Comme nt pls call w K level Result Comment: [facility] Glucose Reference Range is dependent on time and content of last meal. Glucose of more than 200 mg/dL in a nonstressed, ambulatory subject supports the diagnosis of Diabetes Mellitus. ADA recommended reference range Performed By: #### B MP #### [facility] [address] [place] [address] Potassium [Moles/Vol] 3.6 mmol/L Normal 3.5-5.1 [facility] Comment on above: Order Comment: Comme nt pls call w K level Performed By: #### B MP #### [address] Sodium [Moles/Vol] 137 mmol/L Normal 136-145 [facility] Comment on above: Order Comment: Comme nt pls call w K level Performed By: #### B MP #### [facility] [address] [place] [address] Urea nitrogen [Mass/Vol] 50 mg/dL High 7-25 [facility] Comment on above: Order Comment: Comme nt pls call w K level Performed By: #### B MP #### [facility] [address] [place] [address] Bilirubin.total [Mass/volume ] in Serum or PlasmaOrdered By: Gela Eller on 07-25-2023 Bilirubin [Mass/Vol] 0.7 mg/dL 0.3-1.0 [facility] Complete Blood Count Auto Di ffon 07-25-2023 Basophils (Bld) [#/Vol] 0.1 10*3/uL Normal 0.0-0.2 [facility] Comment on above: Result Comment: PERF ORMED BY: [place] [address] PATHOLOGIST TELEMEDICINE PHYSICIAN RAHEL TREVINO M.D. Performed By: #### P TT, CMP, BNP, PT, DIFF CBC, MG, HS TROP, LACTIC #### [address] Basophils/100 WBC (Bld) 0.9 % Normal . [facility] Comment on above: Performed By: #### P TT, CMP, BNP, PT, DIFF CBC, MG, HS TROP, LACTIC #### [address] Eosinophils (Bld) [#/Vol] 0.5 10*3/uL High 0.0-0.45 [facility] Comment on above: Performed By: #### P TT, CMP, BNP, PT, DIFF CBC, MG, HS TROP, LACTIC #### [address] Eosinophils/100 WBC (Bld) 7.7 % Normal . [facility] Comment on above: Performed By: #### P TT, CMP, BNP, PT, DIFF CBC, MG, HS TROP, LACTIC #### [address] Erythrocyte distribution width (RBC) [Ratio] 12.4 % Normal 12.0-14.8 [facility] Comment on above: Performed By: #### P TT, CMP, BNP, PT, DIFF CBC, MG, HS TROP, LACTIC #### [address] Hematocrit (Bld) [Volume fraction] 33.8 % Low 38.8-50.0 [facility] Comment on above: Performed By: #### P TT, CMP, BNP, PT, DIFF CBC, MG, HS TROP, LACTIC #### [address] Hemoglobin (Bld) [Mass/Vol] 11.3 g/dL Low 13.0-17.0 [facility] Comment on above: Performed By: #### P TT, CMP, BNP, PT, DIFF CBC, MG, HS TROP, LACTIC #### [address] Lymphocytes (Bld) [#/Vol] 0.6 10*3/uL Low 1.00-4.8 [facility] Comment on above: Performed By: #### P TT, CMP, BNP, PT, DIFF CBC, MG, HS TROP, LACTIC #### [address] Lymphocytes/100 WBC (Bld) 9.8 % Normal . [facility] Comment on above: Performed By: #### P TT, CMP, BNP, PT, DIFF CBC, MG, HS TROP, LACTIC #### [address] MCH (RBC) [Entitic mass] 29.8 pg Normal 27.5-35.2 [facility] Comment on above: Performed By: #### P TT, CMP, BNP, PT, DIFF CBC, MG, HS TROP, LACTIC #### [address] MCV (RBC) [Entitic vol] 89.0 fL Normal 83.5-101 F [facility] Comment on above: Performed By: #### P TT, CMP, BNP, PT, DIFF CBC, MG, HS TROP, LACTIC #### [address] Mean Corpuscular HGB Conc 33.5 g/dL Normal 32.5-35.6 [facility] Comment on above: Performed By: #### P TT, CMP, BNP, PT, DIFF CBC, MG, HS TROP, LACTIC #### [address] Monocytes (Bld) [#/Vol] 1.3 10*3/uL High 0.0-0.8 [facility] Comment on above: Performed By: #### P TT, CMP, BNP, PT, DIFF CBC, MG, HS TROP, LACTIC #### [address] Monocytes/100 WBC (Bld) 21.3 % Normal . F [facility] Comment on above: Performed By: #### P TT, CMP, BNP, PT, DIFF CBC, MG, HS TROP, LACTIC #### [address] Neutrophils (Bld) [#/Vol] 3.6 10*3/uL Normal 1.8-7.7 [facility] Comment on above: Performed By: #### P TT, CMP, BNP, PT, DIFF CBC, MG, HS TROP, LACTIC #### [address] Neutrophils/100 WBC (Bld) 60.3 % Normal . [facility] Comment on above: Performed By: #### P TT, CMP, BNP, PT, DIFF CBC, MG, HS TROP, LACTIC #### [address] NRBC% 0.1 /100{WBC} Normal 0-0.5 [facility] Comment on above: Performed By: #### P TT, CMP, BNP, PT, DIFF CBC, MG, HS TROP, LACTIC #### [address] Platelet mean volume (Bld) [Entitic vol] 10.7 fL High 6.6-10.1 [facility] Comment on above: Performed By: #### P TT, CMP, BNP, PT, DIFF CBC, MG, HS TROP, LACTIC #### [place] [address] [place] Platelets (Bld) [#/Vol] 188 10*3/uL Signific ant change down 150-450 [facility] Comment on above: Performed By: #### P TT, CMP, BNP, PT, DIFF CBC, MG, HS TROP, LACTIC #### [place] [address] [place] RBC (Bld) [#/Vol] 3.80 10*6/uL Low 3.90-5.60 [facility] Comment on above: Performed By: #### P TT, CMP, BNP, PT, DIFF CBC, MG, HS TROP, LACTIC #### [address] WBC (Bld) [#/Vol] 5.9 10*3/uL Normal 4.1-10.5 [facility] Comment on above: Performed By: #### P TT, CMP, BNP, PT, DIFF CBC, MG, HS TROP, LACTIC #### [address] Comprehensive Metabolic Pane jefry 07-25-2023 Albumin [Mass/Vol] 3.4 g/dL Low 3.5-5.7 [facility] Comment on above: Performed By: #### P TT, CMP, BNP, PT, DIFF CBC, MG, HS TROP, LACTIC #### [address] Albumin/Globulin [Mass ratio] 1.3 {ratio} Normal [facility] Comment on above: Performed By: #### P TT, CMP, BNP, PT, DIFF CBC, MG, HS TROP, LACTIC #### [address] ALP [Catalytic activity/Vol] 60 U/L Normal 34-104 [facility] Comment on above: Performed By: #### P TT, CMP, BNP, PT, DIFF CBC, MG, HS TROP, LACTIC #### [address] ALT [Catalytic activity/Vol] 9 U/L Normal 7-52 [facility] Comment on above: Performed By: #### P TT, CMP, BNP, PT, DIFF CBC, MG, HS TROP, LACTIC #### [address] Anion gap [Moles/Vol] 11.5 mmol/L Normal 6.0-15.0 [facility] Comment on above: Performed By: #### P TT, CMP, BNP, PT, DIFF CBC, MG, HS TROP, LACTIC #### [facility] [address] AST [Catalytic activity/Vol] 16 U/L Normal 13-39 [facility] Comment on above: Performed By: #### P TT, CMP, BNP, PT, DIFF CBC, MG, HS TROP, LACTIC #### [facility] [address] Bilirubin [Mass/Vol] 0.7 mg/dL Normal 0.3-1.0 [facility] Comment on above: Performed By: #### P TT, CMP, BNP, PT, DIFF CBC, MG, HS TROP, LACTIC #### [facility] [address] Calcium [Mass/Vol] 8.6 mg/dL Normal 8.6-10.3 [facility] Comment on above: Performed By: #### P TT, CMP, BNP, PT, DIFF CBC, MG, HS TROP, LACTIC #### [facility] [address] Chloride [Moles/Vol] 98 mmol/L Normal 98-107 [facility] Comment on above: Performed By: #### P TT, CMP, BNP, PT, DIFF CBC, MG, HS TROP, LACTIC #### [address] CO2 [Moles/Vol] 31.4 mmol/L High 21.0-31.0 [facility] Comment on above: Performed By: #### P TT, CMP, BNP, PT, DIFF CBC, MG, HS TROP, LACTIC #### [facility] [address] Creatinine [Mass/Vol] 2.86 mg/dL Significan t change up 0.70-1.30 [facility] Comment on above: Performed By: #### P TT, CMP, BNP, PT, DIFF CBC, MG, HS TROP, LACTIC #### [facility] [address] Creatinine Clr Calc Pharmacy 24.72 Normal [facility] Comment on above: Result Comment: PERF ORMED BY: [place] [address] PATHOLOGIST TELEMEDICINE PHYSICIAN RAHEL TREVINO M.D. Performed By: #### P TT, CMP, BNP, PT, DIFF CBC, MG, HS TROP, LACTIC #### [address] GFR/1.73 sq M.predicted MDRD (S/P/Bld) [Vol rate/Area] 23.231 mL/min/{1.73_m2} Normal [facility] Comment on above: Performed By: #### P TT, CMP, BNP, PT, DIFF CBC, MG, HS TROP, LACTIC #### [address] Globulin (S) [Mass/Vol] 2.7 g/dL Normal [facility] Comment on above: Performed By: #### P TT, CMP, BNP, PT, DIFF CBC, MG, HS TROP, LACTIC #### [address] Glucose [Mass/Vol] 81 mg/dL Normal 70-100 [facility] Comment on above: Result Comment: [facility] Glucose Reference Range is dependent on time and content of last meal. Glucose of more than 200 mg/dL in a nonstressed, ambulatory subject supports the diagnosis of Diabetes Mellitus. ADA recommended reference range Performed By: #### P TT, CMP, BNP, PT, DIFF CBC, MG, HS TROP, LACTIC #### [address] Potassium [Moles/Vol] 3.9 mmol/L Normal 3.5-5.1 [facility] Comment on above: Performed By: #### P TT, CMP, BNP, PT, DIFF CBC, MG, HS TROP, LACTIC #### [address] Protein [Mass/Vol] 6.1 g/dL Significant change down 6.4-8.9 [facility] Comment on above: Performed By: #### P TT, CMP, BNP, PT, DIFF CBC, MG, HS TROP, LACTIC #### [facility] [address] Sodium [Moles/Vol] 137 mmol/L Normal 136-145 [facility] Comment on above: Performed By: #### P TT, CMP, BNP, PT, DIFF CBC, MG, HS TROP, LACTIC #### [facility] [address] Urea nitrogen [Mass/Vol] 44 mg/dL High 7-25 [facility] Comment on above: Performed By: #### P TT, CMP, BNP, PT, DIFF CBC, MG, HS TROP, LACTIC #### [facility] [address] Creatinine, Urine (Random)on 07-25-2023 Creatinine, Urine (Random) 141.0 mg/dL High 14.0-26.0 [facility] Comment on above: Performed By: #### P TT, CMP, BNP, PT, DIFF CBC, MG, HS TROP, LACTIC #### [facility] [address] Globulin Calc (S) [Mass/Vol] Ordered By: Gela Eller on 07-25-2023 Globulin (S) [Mass/Vol] 2.7 g/dL [facility] Jefry 07-25-2023 L ---- Specimen: [id number] Received: 07/25/23 Status: ANT Erazo Num: [id number] Spec Type: Surgical Subm Dr: Nohemy Linder MD Tissues: A Duodenum - Biopsy (DUODENUM BX) B Gastric Biopsy (GASTRIC BX) Procedures: HE/4, Gross/Micro L4/2, H PYLORI Age/ Patient Sex Location Account Attending Physician Aisha Julien /[facility] [id number] Gela Eller MD SPEC NUM: [id number] RECD: 07/25/23 STATUS: ANT GALLEGOAshley NUM: [id number] [place]: 07/25/23- [facility] DR: Nohemy Linder MD ENTERED: 07/25/[address] [facility] [address]: MIA TYPE: Surgical DEPT: S ORDERED: [...] infection Clinical Information Dizzy, abnormal labs Specimen: [id number] Received: 07/25/23 Status: ANT Erazo Num: [id number] Spec Type: Surgical Subm Dr: Nohemy Linder MD Tissues: A Duodenum - Biopsy (DUODENUM BX) B Gastric Biopsy (GASTRIC BX) Procedures: HE/4, Gross/Micro L4/2, H PYLORI Patient: Aisha Julien [id number] (Continued) Specimen: [id number] Received: 07/25/23 (Continued) Signed (signature on file) Vignesh Koehler MD 07/28/231999 Specimen: [id number] Received: 07/25/23 Status: ANT Erazo Num: [id number] Spec Type: Surgical Subm Dr: Nohemy Linder MD Tissues: A Duodenum - Biopsy (DUODENUM BX) B Gastric Biopsy (GASTRIC BX) Procedures: HE/4, Gross/Micro L4/2, H PYLORI Patient: Aisha Julien [id number] (Continued) Specimen: [id number] Received: 07/25/23 (Continued) Gross Description A. Received [...] microscopic examination confirms the diagnosis. CPT Codes 62824v2, 56412w0 Specimen: [id number] Received: 07/25/23 Status: ANT Gallegoashley Num: [id number] Spec Type: Surgical Subm Dr: Nohemy Linder MD Tissues: A Duodenum - Biopsy (DUODENUM BX) B Gastric Biopsy (GASTRIC BX) Procedures: HE/4, Gross/Micro L4/2, H PYLORI Patient: Aisha Julien [id number] (Continued) Signed (signature on file) Vignesh Koehler MD 07/28/231999 [facility] Protein [Mass/volume] in Ser um or PlasmaOrdered By: Gela Eller on 07-25-2023 Protein [Mass/Vol] 6.1 g/dL 6.4-8.9 [facility] Comment on above: Delta: 7.8 on 1228 Serum or plasma albumin/glob ulin mass ratioOrdered By: Gela Eller on 07-25-2023 Albumin/Globulin [Mass ratio] 1.3 {ratio} [facility] Sodium, Urine (Random)on Sodium (U) [Moles/Vol] 41 mmol/L Normal [facility] Comment on above: Result Comment: No r eference range established PERFORMED BY: [place] [address] PATHOLOGIST TELEMEDICINE PHYSICIAN RAHEL TREVINO M.D. Performed By: #### P TT, CMP, BNP, PT, DIFF CBC, MG, HS TROP, LACTIC #### [facility] [address] [place] [address] Alanine aminotransferase [En zymatic activity/volume] in Serum or PlasmaOrdered By: Jean Paul Gutiérrez on 07-24-2023 ALT [Catalytic activity/Vol] 12 U/L 7-52 [facility] Albumin [Mass/volume] in Ser um or Plasma by Bromocresol green (BCG) dye binding methoOrdered By: Jean Paul Gutiérrez on 07-24-2023 Albumin BCG dye [Mass/Vol] 4.3 g/dL 3.5-5.7 [facility] Alkaline phosphatase [Enzyma tic activity/volume] in Serum or PlasmaOrdered By: Jean Paul Gutiérrez on 07-24-2023 ALP [Catalytic activity/Vol] 72 U/L 34-104 [facility] Aspartate aminotransferase [ Enzymatic activity/volume] in Serum or PlasmaOrdered By: Jean Paul Gutiérrez on 07-24-2023 AST [Catalytic activity/Vol] 24 U/L 13-39 [facility] Automated erythrocytes count in urine sediment (number/area)Ordered By: Jean Paul Gutiérrez on 07-24-2023 RBC Auto (Urine sed) [#/Area] 5-9 [HPF] 0-4 [facility] Automated leukocytes count i n urine sediment (number/area)Ordered By: Jean Paul Gutiérrez on 07-24-2023 WBC Auto (Urine sed) [#/Area] 0-1 [HPF] 0-4 [facility] Basic Metabolic Panelon 06-27 Anion gap [Moles/Vol] 18.0 mmol/L High 6.0-15.0 [facility] Comment on above: Performed By: #### P TT, CMP, BNP, PT, DIFF CBC, MG, HS TROP, LACTIC #### [facility] [address] Calcium [Mass/Vol] 9.6 mg/dL Normal 8.6-10.3 [facility] Comment on above: Performed By: #### P TT, CMP, BNP, PT, DIFF CBC, MG, HS TROP, LACTIC #### [facility] [address] Chloride [Moles/Vol] 84 mmol/L Low 98-107 [facility] Comment on above: Performed By: #### P TT, CMP, BNP, PT, DIFF CBC, MG, HS TROP, LACTIC #### [facility] [address] CO2 [Moles/Vol] 34.9 mmol/L High 21.0-31.0 [facility] Comment on above: Performed By: #### P TT, CMP, BNP, PT, DIFF CBC, MG, HS TROP, LACTIC #### [facility] [address] [place] [address] [place] Creatinine [Mass/Vol] 4.59 mg/dL High 0.70-1.30 [facility] Comment on above: Performed By: #### P TT, CMP, BNP, PT, DIFF CBC, MG, HS TROP, LACTIC #### [facility] [address] [place] [address] [place] Creatinine Clr Calc Pharmacy 15.40 Normal [facility] Comment on above: Performed By: #### P TT, CMP, BNP, PT, DIFF CBC, MG, HS TROP, LACTIC #### [facility] [address] [place] [address] [place] GFR/1.73 sq M.predicted MDRD (S/P/Bld) [Vol rate/Area] 13.168 mL/min/{1.73_m2} Normal [facility] Comment on above: Performed By: #### P TT, CMP, BNP, PT, DIFF CBC, MG, HS TROP, LACTIC #### [facility] [address] Glucose [Mass/Vol] 128 mg/dL High 70-100 [facility] Comment on above: Result Comment: [facility] Glucose Reference Range is dependent on time and content of last meal. Glucose of more than 200 mg/dL in a nonstressed, ambulatory subject supports the diagnosis of Diabetes Mellitus. ADA recommended reference range Performed By: #### P TT, CMP, BNP, PT, DIFF CBC, MG, HS TROP, LACTIC #### [address] Potassium [Moles/Vol] 2.9 mmol/L Off scale low 3.5-5.1 [facility] Comment on above: Result Comment: Alfredo abbott Result Called to and read back by: ANDREAS CARABALLO at: 07/24/2023 13:30:58 by:MLG Performed By: #### P TT, CMP, BNP, PT, DIFF CBC, MG, HS TROP, LACTIC #### [address] Sodium [Moles/Vol] 134 mmol/L Low 136-145 [facility] Comment on above: Performed By: #### P TT, CMP, BNP, PT, DIFF CBC, MG, HS TROP, LACTIC #### [address] Urea nitrogen [Mass/Vol] 56 mg/dL High 7-25 [facility] Comment on above: Performed By: #### P TT, CMP, BNP, PT, DIFF CBC, MG, HS TROP, LACTIC #### [address] Basophils Auto (Bld) [#/Vol] Ordered By: Jean Paul Gutiérrez on 07-24-2023 Basophils (Bld) [#/Vol] 0.0 10*3/uL 0.0-0.2 [facility] Basophils/100 WBC Auto (Bld) Ordered By: Jean Paul Gutiérrez on 07-24-2023 Basophils/100 WBC (Bld) 0.5 % . F [facility] Bilirubin Test strip Ql (U)O rdered By: Jean Paul Gutiérrez on 07-24-2023 Bilirubin Ql (U) Negative Negative [facility] Bilirubin.direct [Mass/volum e] in Serum or PlasmaOrdered By: Jean Paul Gutiérrez on 07-24-2023 Bilirubin.direct [Mass/Vol] 0.20 mg/dL 0.03-0.18 [facility] Bilirubin.total [Mass/volume ] in Serum or PlasmaOrdered By: Jean Paul Gutiérrez on 07-24-2023 Bilirubin [Mass/Vol] 0.8 mg/dL 0.3-1.0 [facility] CT abdomen pelvis wo conon 1 09-23-2022 CT abdomen pelvis wo con [facility] [place] [address] CT Scan Report Signed Patient: Aisha Julien MR#: [id number] : 1955 Acct:[id number] Age/Sex: 68 / M ADM Date: 07/24/23 Loc: ER Room: Type: [facility] ER Attending Dr: Copies to: Jean [...] Santa Jr., EstephaniaOAlma07/24/2023 2:43 PM Dictation Location: [place] [address] Transcribed By: MAXIMO 07/24/23 1443 Dictated By: Lebron Santa Jr, DO 07/24/23 1428 Signed By: 07/24/23 144 [facility] Calcium [Mass/volume] in Ser um or PlasmaOrdered By: Jean Paul Gutiérrez on 07-24-2023 Calcium [Mass/Vol] 9.6 mg/dL 8.6-10.3 [facility] Carbon dioxide, total [Moles /volume] in Serum or PlasmaOrdered By: Jean Paul Gutiérrez on 07-24-2023 CO2 [Moles/Vol] 34.9 mmol/L 21.0-31.0 [facility] Chloride [Moles/volume] in S sadi or PlasmaOrdered By: Jean Paul Gutiérrez on 07-24-2023 Chloride [Moles/Vol] 84 mmol/L 98-107 [facility] Color Auto (U)Ordered By: Vincent Gutiérrez on 07-24-2023 Color (U) Yellow Yellow [facility] Complete Blood Count Auto Di ffon 07-24-2023 Basophils (Bld) [#/Vol] 0.0 10*3/uL Normal 0.0-0.2 [facility] Comment on above: Result Comment: PERF ORMED BY: [place] [address] PATHOLOGIST TELEMEDICINE PHYSICIAN RAHEL TREVINO M.D. Performed By: #### P TT, CMP, BNP, PT, DIFF CBC, MG, HS TROP, LACTIC #### [facility] [address] Basophils/100 WBC (Bld) 0.5 % Normal . [facility] Comment on above: Performed By: #### P TT, CMP, BNP, PT, DIFF CBC, MG, HS TROP, LACTIC #### [facility] [address] [place] [address] [place] Eosinophils (Bld) [#/Vol] 0.1 10*3/uL Normal 0.0-0.45 [facility] Comment on above: Performed By: #### P TT, CMP, BNP, PT, DIFF CBC, MG, HS TROP, LACTIC #### [facility] [address] [place] [address] [place] Eosinophils/100 WBC (Bld) 1.0 % Normal . [facility] Comment on above: Performed By: #### P TT, CMP, BNP, PT, DIFF CBC, MG, HS TROP, LACTIC #### [address] Erythrocyte distribution width (RBC) [Ratio] 12.4 % Normal 12.0-14.8 [facility] Comment on above: Performed By: #### P TT, CMP, BNP, PT, DIFF CBC, MG, HS TROP, LACTIC #### [address] Hematocrit (Bld) [Volume fraction] 40.5 % Normal 38.8-50.0 [facility] Comment on above: Performed By: #### P TT, CMP, BNP, PT, DIFF CBC, MG, HS TROP, LACTIC #### [address] Hemoglobin (Bld) [Mass/Vol] 13.7 g/dL Normal 13.0-17.0 [facility] Comment on above: Performed By: #### P TT, CMP, BNP, PT, DIFF CBC, MG, HS TROP, LACTIC #### [address] Lymphocytes (Bld) [#/Vol] 0.9 10*3/uL Low 1.00-4.8 [facility] Comment on above: Performed By: #### P TT, CMP, BNP, PT, DIFF CBC, MG, HS TROP, LACTIC #### [address] Lymphocytes/100 WBC (Bld) 12.6 % Normal . [facility] Comment on above: Performed By: #### P TT, CMP, BNP, PT, DIFF CBC, MG, HS TROP, LACTIC #### [address] MCH (RBC) [Entitic mass] 29.8 pg Normal 27.5-35.2 [facility] Comment on above: Performed By: #### P TT, CMP, BNP, PT, DIFF CBC, MG, HS TROP, LACTIC #### [address] MCV (RBC) [Entitic vol] 88.1 fL Normal 83.5-101 F [facility] Comment on above: Performed By: #### P TT, CMP, BNP, PT, DIFF CBC, MG, HS TROP, LACTIC #### [address] Mean Corpuscular HGB Conc 33.8 g/dL Normal 32.5-35.6 [facility] Comment on above: Performed By: #### P TT, CMP, BNP, PT, DIFF CBC, MG, HS TROP, LACTIC #### [address] Monocytes (Bld) [#/Vol] 0.8 10*3/uL Normal 0.0-0.8 [facility] Comment on above: Performed By: #### P TT, CMP, BNP, PT, DIFF CBC, MG, HS TROP, LACTIC #### [address] Monocytes/100 WBC (Bld) 21.73 % High 0.00-20.00 [facility] Comment on above: Result Comment: For adults in ED, MDW > 20.0 may be associated with a higher risk of sepsis during the first 12 hrs of hospital admission Performed By: #### P TT, CMP, BNP, PT, DIFF CBC, MG, HS TROP, LACTIC #### [address] Monocytes/100 WBC (Bld) 10.3 % Normal . [facility] Comment on above: Performed By: #### P TT, CMP, BNP, PT, DIFF CBC, MG, HS TROP, LACTIC #### [place] [address] [place] Neutrophils (Bld) [#/Vol] 5.5 10*3/uL Normal 1.8-7.7 [facility] Comment on above: Performed By: #### P TT, CMP, BNP, PT, DIFF CBC, MG, HS TROP, LACTIC #### [address] Neutrophils/100 WBC (Bld) 75.6 % Normal . [facility] Comment on above: Performed By: #### P TT, CMP, BNP, PT, DIFF CBC, MG, HS TROP, LACTIC #### [facility] [address] NRBC% 0.2 /100{WBC} Normal 0-0.5 [facility] Comment on above: Performed By: #### P TT, CMP, BNP, PT, DIFF CBC, MG, HS TROP, LACTIC #### [address] Platelet mean volume (Bld) [Entitic vol] 10.8 fL High 6.6-10.1 [facility] Comment on above: Performed By: #### P TT, CMP, BNP, PT, DIFF CBC, MG, HS TROP, LACTIC #### [address] Platelets (Bld) [#/Vol] 256 10*3/uL Normal 150-450 [facility] Comment on above: Performed By: #### P TT, CMP, BNP, PT, DIFF CBC, MG, HS TROP, LACTIC #### [address] RBC (Bld) [#/Vol] 4.60 10*6/uL Normal 3.90-5.60 [facility] Comment on above: Performed By: #### P TT, CMP, BNP, PT, DIFF CBC, MG, HS TROP, LACTIC #### [address] WBC (Bld) [#/Vol] 7.3 10*3/uL Normal 4.1-10.5 [facility] Comment on above: Performed By: #### P TT, CMP, BNP, PT, DIFF CBC, MG, HS TROP, LACTIC #### [address] Creatinine [Mass/volume] in Serum or PlasmaOrdered By: Jean Paul Gutiérrez on 07-24-2023 Creatinine [Mass/Vol] 4.59 mg/dL 0.70-1.30 [facility] Creatinine [Mass/volume] in UrineOrdered By: Gela Eller on 07-24-2023 Creatinine (U) [Mass/Vol] 141.0 mg/dL 14.0-26.0 [facility] Dipstick and Microscopicon 1 09-23-2022 Appearance (U) Clear Normal Clear [facility] Comment on above: Order Comment: Name Collection Type:: Clean-Voided Midstream Performed By: #### P TT, CMP, BNP, PT, DIFF CBC, MG, HS TROP, LACTIC #### [facility] [address] [place] [address] Bacteria,Urine None Seen Normal None Seen [facility] Comment on above: Order Comment: Name Collection Type:: Clean-Voided Midstream Performed By: #### P TT, CMP, BNP, PT, DIFF CBC, MG, HS TROP, LACTIC #### [address] Bilirubin,Urine Negative Normal Negative [facility] Comment on above: Order Comment: Name Collection Type:: Clean-Voided Midstream Performed By: #### P TT, CMP, BNP, PT, DIFF CBC, MG, HS TROP, LACTIC #### [address] Color (U) Yellow Normal Yellow [facility] Comment on above: Order Comment: Name Collection Type:: Clean-Voided Midstream Performed By: #### P TT, CMP, BNP, PT, DIFF CBC, MG, HS TROP, LACTIC #### [facility] [address] [place] [address] Glucose Ql (U) Normal Normal Normal [facility] Comment on above: Order Comment: Name Collection Type:: Clean-Voided Midstream Performed By: #### P TT, CMP, BNP, PT, DIFF CBC, MG, HS TROP, LACTIC #### [place] [address] [place] Hyaline Casts,Urine None Seen Normal 0-8 [facility] Comment on above: Order Comment: Name Collection Type:: Clean-Voided Midstream Result Comment: PERF ORMED BY: [place] [address] PATHOLOGIST TELEMEDICINE PHYSICIAN RAHEL TREVINO M.D. Performed By: #### P TT, CMP, BNP, PT, DIFF CBC, MG, HS TROP, LACTIC #### [address] Ketones Ql (U) Trace High Negative [facility] Comment on above: Order Comment: Name Collection Type:: Clean-Voided Midstream Performed By: #### P TT, CMP, BNP, PT, DIFF CBC, MG, HS TROP, LACTIC #### [address] Leukocyte esterase Test strip Ql (U) Negative Normal Negative [facility] Comment on above: Order Comment: Name Collection Type:: Clean-Voided Midstream Performed By: #### P TT, CMP, BNP, PT, DIFF CBC, MG, HS TROP, LACTIC #### [address] Nitrite,Urine Negative Normal Negative [facility] Comment on above: Order Comment: Name Collection Type:: Clean-Voided Midstream Performed By: #### P TT, CMP, BNP, PT, DIFF CBC, MG, HS TROP, LACTIC #### [address] Occult Blood,Urine Negative Normal Negative [facility] Comment on above: Order Comment: Name Collection Type:: Clean-Voided Midstream Result Comment: PERF ORMED BY: [place] [address] PATHOLOGIST TELEMEDICINE PHYSICIAN RAHEL TREVINO M.D. Performed By: #### P TT, CMP, BNP, PT, DIFF CBC, MG, HS TROP, LACTIC #### [address] pH (U) 5.5 [pH] Normal 5.0-9.0 [facility] Comment on above: Order Comment: Name Collection Type:: Clean-Voided Midstream Performed By: #### P TT, CMP, BNP, PT, DIFF CBC, MG, HS TROP, LACTIC #### [address] Protein (U) [Mass/Vol] 30 mg/dL High Negative [facility] Comment on above: Order Comment: Name Collection Type:: Clean-Voided Midstream Performed By: #### P TT, CMP, BNP, PT, DIFF CBC, MG, HS TROP, LACTIC #### [address] RBC,Urine 5-9 High 0-4 [facility] Comment on above: Order Comment: Name Collection Type:: Clean-Voided Midstream Performed By: #### P TT, CMP, BNP, PT, DIFF CBC, MG, HS TROP, LACTIC #### [address] Specificy [place],Urine 1.015 Normal 1.00 1-1.03 0 [facility] Comment on above: Order Comment: Name Collection Type:: Clean-Voided Midstream Performed By: #### P TT, CMP, BNP, PT, DIFF CBC, MG, HS TROP, LACTIC #### [address] Squamous Epithelial Cell,Urine None Seen Normal 0-2 [facility] Comment on above: Order Comment: Name Collection Type:: Clean-Voided Midstream Performed By: #### P TT, CMP, BNP, PT, DIFF CBC, MG, HS TROP, LACTIC #### [address] Urobilinogen,Urine Normal Normal Normal [facility] Comment on above: Order Comment: Name Collection Type:: Clean-Voided Midstream Performed By: #### P TT, CMP, BNP, PT, DIFF CBC, MG, HS TROP, LACTIC #### [address] WBC LM.HPF (Urine sed) [#/Area] 0 /[HPF] Normal 0-4 [facility] Comment on above: Order Comment: Name Collection Type:: Clean-Voided Midstream Performed By: #### P TT, CMP, BNP, PT, DIFF CBC, MG, HS TROP, LACTIC #### [address] ECG 12 lead ECGon 07-24-2023 ECG 12 lead ECG [facility] Main [place] [id number] Electrocardiograph Report Signed Patient: Aisha Julien MR#: [id number] 79 : 1955 Acct:[id number] Age/Sex: 68 / M ADM Date: 07/24/23 Loc: Room: [address] [place] [address] Type: ADM IN Attending Dr: Gela Eller [...] rhythm Confirmed by JEAN PAUL GUTIÉRREZ DO ([id number]) on 07/25/2023 4:32:20 PM Referred By: Electronically Signed By:JEAN PAUL GUTIÉRREZ DO Transcribed By: MUS Signed By Jean Paul Gutiérrez DO 07/25 1632 Normal [facility] ECG 12 lead ECG [facility] Main [place] [id number] Electrocardiograph Report Signed Patient: Aisha Julien MR#: [id number] 79 : 1955 Acct:[id number] Age/Sex: 68 / M ADM Date: 07/24/23 Loc: ER Room: Type: [facility] ER Attending Dr: Ordering Provider: Jean [...] lengthened Confirmed by JEAN PAUL GUTIÉRREZ DO ([id number]) on 07/24/2023 3:51:38 PM Referred By: Electronically Signed By:JEAN PAUL GUTIÉRREZ DO Transcribed By: MUS Signed By Jean Paul Gutiérrez DO 07/24 1551 Normal [facility] Eosinophils Auto (Bld) [#/Vo l]Ordered By: Jean Paul Gutiérrez on 07-24-2023 Eosinophils (Bld) [#/Vol] 0.1 10*3/uL 0.0-0.45 [facility] Eosinophils/100 WBC Auto (Bl d)Ordered By: Jean Paul Gutiérrez on 07-24-2023 Eosinophils/100 WBC (Bld) 1.0 % . [facility] Erythrocyte distribution wid th Auto (RBC) [Ratio]Ordered By: Jean Paul Gutiérrez on 07-24-2023 Erythrocyte distribution width (RBC) [Ratio] 12.4 % 12.0-14.8 [facility] Globulin Calc (S) [Mass/Vol] Ordered By: Jean Paul Gutiérrez on 07-24-2023 Globulin (S) [Mass/Vol] 3.5 g/dL F [facility] Glucose [Mass/volume] in Ser um or PlasmaOrdered By: Jean Paul Gutiérrez on 07-24-2023 Glucose [Mass/Vol] 128 mg/dL 70-100 [facility] Comment on above: ADA recommended refe rence rangeRandom Glucose Reference Range is dependent on time and content of last meal. Glucose of more than 200 mg/dL in a nonstressed, ambulatory subject supports the diagnosis of Diabetes Mellitus. Hematocrit Auto (Bld) [Volum e fraction]Ordered By: Jean Paul Gutiérrez on 07-24-2023 Hematocrit (Bld) [Volume fraction] 40.5 % 38.8-50.0 [facility] Hemoglobin [Mass/volume] in BloodOrdered By: Jean Paul Gutiérrez on 07-24-2023 Hemoglobin (Bld) [Mass/Vol] 13.7 g/dL 13.0-17.0 [facility] Hepatic Panelon 07-24-2023 Albumin [Mass/Vol] 4.3 g/dL Normal 3.5-5.7 [facility] Comment on above: Performed By: #### P TT, CMP, BNP, PT, DIFF CBC, MG, HS TROP, LACTIC #### [address] Albumin/Globulin [Mass ratio] 1.2 {ratio} Normal [facility] Comment on above: Performed By: #### P TT, CMP, BNP, PT, DIFF CBC, MG, HS TROP, LACTIC #### [address] ALP [Catalytic activity/Vol] 72 U/L Normal 34-104 [facility] Comment on above: Performed By: #### P TT, CMP, BNP, PT, DIFF CBC, MG, HS TROP, LACTIC #### [address] ALT [Catalytic activity/Vol] 12 U/L Normal 7-52 [facility] Comment on above: Performed By: #### P TT, CMP, BNP, PT, DIFF CBC, MG, HS TROP, LACTIC #### [address] AST [Catalytic activity/Vol] 24 U/L Normal 13-39 [facility] Comment on above: Performed By: #### P TT, CMP, BNP, PT, DIFF CBC, MG, HS TROP, LACTIC #### [address] Bilirubin [Mass/Vol] 0.8 mg/dL Normal 0.3-1.0 [facility] Comment on above: Performed By: #### P TT, CMP, BNP, PT, DIFF CBC, MG, HS TROP, LACTIC #### [place] [address] [place] Bilirubin,Indirect 0.6 mg/dL Normal [facility] Comment on above: Performed By: #### P TT, CMP, BNP, PT, DIFF CBC, MG, HS TROP, LACTIC #### [address] Bilirubin.indirect [Mass/Vol] 0.20 mg/dL High 0.03-0.18 [facility] Comment on above: Performed By: #### P TT, CMP, BNP, PT, DIFF CBC, MG, HS TROP, LACTIC #### [facility] [address] Globulin (S) [Mass/Vol] 3.5 g/dL Normal F [facility] Comment on above: Performed By: #### P TT, CMP, BNP, PT, DIFF CBC, MG, HS TROP, LACTIC #### [facility] [address] Protein [Mass/Vol] 7.8 g/dL Normal 6.4-8.9 [facility] Comment on above: Performed By: #### P TT, CMP, BNP, PT, DIFF CBC, MG, HS TROP, LACTIC #### [facility] [address] INR in Platelet poor plasma by Coagulation assayOrdered By: Jean Paul Gutiérrez on 07-24-2023 INR Coag (PPP) [Relative time] 1.0 {INR} [facility] Comment on above: INR Therapeutic Rang [...] on 07-24-2023 Ketones (U) [Mass/Vol] Trace Negative [facility] Laboratory - UrinalysisOrder ed By: Jean Paul Gutiérrez on 07-24-2023 Hyaline casts LM Ql (Urine sed) None seen [LPF] 0-8 [facility] Leukocytes [#/volume] correc johnnie for nucleated erythrocytes in Blood by Automated counOrdered By: Jean Paul Gutiérrez on 07-24-2023 WBC corrected for nucl RBC Auto (Bld) [#/Vol] 7.3 10*3/uL 4.1-10.5 [facility] Lipaseon 07-24-2023 Lipase [Catalytic activity/Vol] 90.0 U/L High 11.0-82.0 [facility] Comment on above: Result Comment: PERF ORMED BY: [address] [place] [address] PATHOLOGIST TELEMEDICINE PHYSICIAN RAHEL TREVINO M.D. Performed By: #### P TT, CMP, BNP, PT, DIFF CBC, MG, HS TROP, LACTIC #### [facility] [address] [place] [id number] [facility] Lipase [Enzymatic activity/v olume] in Serum or PlasmaOrdered By: Jean Paul Gutiérrez on 07-24-2023 Lipase [Catalytic activity/Vol] 90.0 U/L 11.0-82.0 [facility] Lymphocytes Auto (Bld) [#/Vo l]Ordered By: Jean Paul Gutiérrez on 07-24-2023 Lymphocytes (Bld) [#/Vol] 0.9 10*3/uL 1.00-4.8 [facility] Lymphocytes/100 WBC Auto (Bl d)Ordered By: Jean Paul Gutiérrez on 07-24-2023 Lymphocytes/100 WBC (Bld) 12.6 % . [facility] MCH Auto (RBC) [Entitic mass ]Ordered By: Jean Paul Gutiérrez on 07-24-2023 MCH (RBC) [Entitic mass] 29.8 pg 27.5-35.2 [facility] MCHC Auto (RBC) [Mass/Vol]Or dered By: Jean Paul Gutiérrez on 07-24-2023 MCHC (RBC) [Mass/Vol] 33.8 g/dL 32.5-35.6 [facility] MCV Auto (RBC) [Entitic vol] Ordered By: Jean Paul Gutiérrez on 07-24-2023 MCV (RBC) [Entitic vol] 88.1 fL 83.5-101 F [facility] Magnesiumon 07-24-2023 Magnesium [Mass/Vol] 2.1 mg/dL Normal 1.9-2.7 [facility] Comment on above: Performed By: #### P TT, CMP, BNP, PT, DIFF CBC, MG, HS TROP, LACTIC #### [facility] [address] [place] [id number] [place] Magnesium [Mass/volume] in S sadi or PlasmaOrdered By: Gela Eller on 07-24-2023 Magnesium [Mass/Vol] 2.1 mg/dL 1.9-2.7 [facility] Monocyte distribution width [Entitic volume] in Blood by AutomatedOrdered By: Jean Paul Gutiérrez on 07-24-2023 Monocyte distribution width Auto (Bld) [Entitic vol] 21.73 % 0.00-20.00 [facility] Comment on above: For adults in ED, MD W > 20.0 may be associated with a higher risk of sepsis during the first 12 hrs of hospital admission Monocytes Auto (Bld) [#/Vol] Ordered By: Jean Paul Gutiérrez on 07-24-2023 Monocytes (Bld) [#/Vol] 0.8 10*3/uL 0.0-0.8 [facility] Monocytes/100 WBC Auto (Bld) Ordered By: Jean Paul Gutiérrez on 07-24-2023 Monocytes/100 WBC (Bld) 10.3 % . [facility] Neutrophils Auto (Bld) [#/Vo l]Ordered By: Jean Paul Gutiérrez on 07-24-2023 Neutrophils (Bld) [#/Vol] 5.5 10*3/uL 1.8-7.7 [facility] Neutrophils/100 WBC Auto (Bl d)Ordered By: Jean Paul Gutiérrez on 07-24-2023 Neutrophils/100 WBC (Bld) 75.6 % . [facility] Nitrite Test strip Ql (U)Ord ered By: Jean Paul Gutiérrez on 07-24-2023 Nitrite Ql (U) Negative Negative [facility] No Panel InformationOrdered By: Jean Paul Gutiérrez on 07-24-2023 Estimated GFR (CKD-EPI) 13.168 mL/Min [facility] Creatinine Clearance (Chem 15.40 [facility] Nucleated erythrocytes [Pres ence] in Blood by Automated countOrdered By: Jean Paul Gutiérrez on 07-24-2023 Nucleated RBC Auto Ql (Bld) 0.2 /100{WBC} 0-0.5 [facility] Platelet mean volume Auto (B ld) [Entitic vol]Ordered By: Jean Paul Gutiérrez on 07-24-2023 Platelet mean volume (Bld) [Entitic vol] 10.8 fL 6.6-10.1 [facility] Platelets Auto (Bld) [#/Vol] Ordered By: Jean Paul Gutiérrez on 07-24-2023 Platelets (Bld) [#/Vol] 256 10*3/uL 150-450 [facility] Potassium [Moles/volume] in Serum or PlasmaOrdered By: Jean Paul Gutiérrez on 07-24-2023 Potassium [Moles/Vol] 2.9 mmol/L 3.5-5.1 [facility] Comment on above: Critical Result Call ed to and read back by: ANDREAS CARABALLO at: 07/24/2023 13:30:58 by:MLG Protein Auto test strip (U) [Mass/Vol]Ordered By: Jean Paul Gutiérrez on 07-24-2023 Protein (U) [Mass/Vol] 30 mg/dL Negative [facility] Protein [Mass/volume] in Ser um or PlasmaOrdered By: Jean Paul Gutiérrez on 07-24-2023 Protein [Mass/Vol] 7.8 g/dL 6.4-8.9 [facility] Prothrombin Time INRon 07-24 INR Coag (PPP) [Relative time] 1.0 {INR} Normal [facility] Comment on above: Result Comment: INR [...] heart valves: 3 - 4.5 PERFORMED BY: [place] [address] PATHOLOGIST TELEMEDICINE PHYSICIAN RAHEL TREVINO M.D. Performed By: #### P TT, CMP, BNP, PT, DIFF CBC, MG, HS TROP, LACTIC #### [address] PT Coag (PPP) [Time] 12.2 s Normal 9.0-12.9 [facility] Comment on above: Result Comment: A he matocrit value greater than 55% may lead to inaccurate results in coagulation testing. Patients having hematocrit values >55% require a special collection tube for coagulation studies. Please contact the laboratory at [phone] for redraw instructions. Performed By: #### P TT, CMP, BNP, PT, DIFF CBC, MG, HS TROP, LACTIC #### [facility] [address] Prothrombin time (PT)Ordered By: Jean Paul Gutiérrez on 07-24-2023 PT Coag (PPP) [Time] 12.2 s 9.0-12.9 [facility] Comment on above: A hematocrit value g reater than 55% may lead to inaccurate results in coagulation testing. Patients having hematocrit values >55% require a special collection tube for coagulation studies. Please contact the laboratory at [phone] for redraw instructions. RBC Auto (Bld) [#/Vol]Ordere d By: Jean Paul Gutiérrez on 07-24-2023 RBC (Bld) [#/Vol] 4.60 10*6/uL 3.90-5.60 [facility] Serum or plasma albumin/glob ulin mass ratioOrdered By: Jean Paul Gutiérrez on 07-24-2023 Albumin/Globulin [Mass ratio] 1.2 {ratio} [facility] Serum or plasma anion gap de terminationOrdered By: Jean Paul Gutiérrez on 07-24-2023 Anion gap [Moles/Vol] 18.0 mmol/L 6.0-15.0 [facility] Serum or plasma non-glucuron idated bilirubin measurement (mass/volume)Ordered By: Jean Paul Gutiérrez on 07-24-2023 Bilirubin.indirect [Mass/Vol] 0.6 mg/dL [facility] Sodium [Moles/volume] in Ser um or PlasmaOrdered By: Jean Paul Gutiérrez on 07-24-2023 Sodium [Moles/Vol] 134 mmol/L 136-145 [facility] Sodium [Moles/volume] in Uri neOrdered By: Gela Eller on 07-24-2023 Sodium (U) [Moles/Vol] 41 mmol/L [facility] Comment on above: No reference range e stablished Specific gravity Auto test s trip (U) [Rel density]Ordered By: Jean Paul Gutiérrez on 07-24-2023 Specific gravity (U) [Rel density] 1.015 1.001-1.03 0 [facility] Squamous epithelial cells de tection in urine sediment by light microscopyOrdered By: Jean Paul Gutiérrez on 07-24-2023 Epithelial cells.squamous LM Ql (Urine sed) None seen [HPF] 0-2 [facility] Troponin I High Sensitivityo n 07-24-2023 Troponin I High Sensitivity 11.8 pg/mL Normal 0.0-20.0 [facility] Comment on above: Result Comment: PERF ORMED BY: [place] [address] PATHOLOGIST TELEMEDICINE PHYSICIAN RAHEL TREVINO M.D. Performed By: #### P TT, CMP, BNP, PT, DIFF CBC, MG, HS TROP, LACTIC #### [address] Troponin I.cardiac [Mass/vol ume] in Serum or Plasma by Detection limit <= 0.01 ng/Ordered By: Jean Paul Gutiérrez on 07-24-2023 Troponin I.cardiac DL <= 0.01 ng/mL [Mass/Vol] 11.8 pg/mL 0.0-20.0 [facility] Urea nitrogen [Mass/volume] in Serum or PlasmaOrdered By: Jean Paul Gutiérrez on 07-24-2023 Urea nitrogen [Mass/Vol] 56 mg/dL 7-25 [facility] Urine bacteria detection by automated methodOrdered By: Jean Paul Gutiérrez on 07-24-2023 Bacteria Auto Ql (U) None seen None Seen [facility] Urine clarity by refractomet ry automatedOrdered By: Jean Paul Gutiérrez on 07-24-2023 Clarity Refractometry automated (U) Clear Clear [facility] Urine glucose measurement by automated test strip (mass/volume)Ordered By: Jean Paul Gutiérrez on 07-24-2023 Glucose Auto test strip (U) [Mass/Vol] Normal mg/dL Normal [facility] Urine hemoglobin detection b y automated test stripOrdered By: Jean Paul Gutiérrez on 07-24-2023 Hemoglobin Auto test strip Ql (U) Negative Negative [facility] Urine leukocyte esterase det ection by automated test stripOrdered By: Jean Paul Gutiérrez on 07-24-2023 Leukocyte esterase Auto test strip Ql (U) Negative Negative [facility] Urobilinogen Auto test strip (U) [Mass/Vol]Ordered By: Jean Paul Gutiérrez on 07-24-2023 Urobilinogen (U) [Mass/Vol] Normal mg/dL Normal [facility] WBC Auto (Bld) [#/Vol]Ordere d By: Jean Paul Gutiérrez on 07-24-2023 WBC (Bld) [#/Vol] 7.3 10*3/uL 4.1-10.5 [facility] pH Auto test strip (U)Ordere d By: Jean Paul Gutiérrez on 07-24-2023 pH (U) 5.5 [pH] 5.0-9.0 [facility] Tobacco Screening.on 023 Tobacco use status CPHS b) No M [facility] y 250 DO Work Phone: Activated partial thrombopla stin time (aPTT) in platelet poor plasma by coagulation aOrdered By: Joselito Madsen on 01-15-2023 aPTT Coag (PPP) [Time] 29.1 s 25.1-36.5 [facility] Basophils Auto (Bld) [#/Vol] Ordered By: Joselito Madsen on 01-15-2023 Basophils (Bld) [#/Vol] 0.0 10*3/uL 0.0-0.2 [facility] Basophils/100 WBC Auto (Bld) Ordered By: Joselito Madsen on 01-15-2023 Basophils/100 WBC (Bld) 0.7 % . [facility] Blood Urea Nitrogenon 2022 Urea nitrogen [Mass/Vol] 19 mg/dL Normal 7-25 [facility] Comment on above: Performed By: #### P TT, CMP, BNP, PT, DIFF CBC, MG, HS TROP, LACTIC #### [facility] [address] Carbon dioxide, total [Moles /volume] in Serum or PlasmaOrdered By: Joselito Madsen on 01-15-2023 CO2 [Moles/Vol] 24.1 mmol/L 21.0-31.0 [facility] Chloride [Moles/volume] in S sadi or PlasmaOrdered By: Joselito Madsen on 01-15-2023 Chloride [Moles/Vol] 108 mmol/L 98-107 [facility] Cholesterol [Mass/volume] in Serum or PlasmaOrdered By: Joselito Madsen on 01-15-2023 Cholesterol [Mass/Vol] 123 mg/dL 140-200 [facility] Comment on above: Chol less than 200 m g/dl low riskChol 201-239 mg/dl borderline riskChol 240 mg/dl and greater high risk Cholesterol in LDL Calc [Mas s/Vol]Ordered By: Joselito Madsen on 01-15-2023 Cholesterol in LDL [Mass/Vol] 49 mg/dL 0-100 [facility] Comment on above: LDL ATP III CLASSIFI CATIONLDL less than 100 mg/dL OptimalLDL 100-129 mg/dL Near or above optimalLDL 130-159 mg/dL Borderline highLDL 160-189 mg/dL HighLDL greater than 189 mg/dL Very high Cholesterol in VLDL Calc [Ma ss/Vol]Ordered By: Joselito Madsen on 01-15-2023 Cholesterol in VLDL [Mass/Vol] 10 mg/dL [facility] Coagulation Profileon 2022 aPTT Coag (Bld) [Time] 29.1 s Normal 25.1-36.5 [facility] Comment on above: Result Comment: PERF ORMED BY: [place] [address] PATHOLOGIST TELEMEDICINE PHYSICIAN RAHEL TREVINO M.D. Performed By: #### P TT, CMP, BNP, PT, DIFF CBC, MG, HS TROP, LACTIC #### [facility] [address] INR Coag (PPP) [Relative time] 1.0 {INR} Normal [facility] Comment on above: Result Comment: INR [...] valves: 3 - 4.5 Performed By: #### P TT, CMP, BNP, PT, DIFF CBC, MG, HS TROP, LACTIC #### [address] PT Coag (PPP) [Time] 11.0 s Normal 9.0-12.9 [facility] Comment on above: Performed By: #### P TT, CMP, BNP, PT, DIFF CBC, MG, HS TROP, LACTIC #### [address] Complete Blood Count Auto Di ffon 01-15-2023 Basophils (Bld) [#/Vol] 0.0 10*3/uL Normal 0.0-0.2 [facility] Comment on above: Result Comment: PERF ORMED BY: [place] [address] PATHOLOGIST TELEMEDICINE PHYSICIAN RAHEL TREVINO M.D. Performed By: #### P TT, CMP, BNP, PT, DIFF CBC, MG, HS TROP, LACTIC #### [address] Basophils/100 WBC (Bld) 0.7 % Normal . [facility] Comment on above: Performed By: #### P TT, CMP, BNP, PT, DIFF CBC, MG, HS TROP, LACTIC #### [address] Eosinophils (Bld) [#/Vol] 0.5 10*3/uL High 0.0-0.45 [facility] Comment on above: Performed By: #### P TT, CMP, BNP, PT, DIFF CBC, MG, HS TROP, LACTIC #### [address] Eosinophils/100 WBC (Bld) 9.6 % Normal . [facility] Comment on above: Performed By: #### P TT, CMP, BNP, PT, DIFF CBC, MG, HS TROP, LACTIC #### [address] Erythrocyte distribution width (RBC) [Ratio] 13.3 % Normal 12.0-14.8 [facility] Comment on above: Performed By: #### P TT, CMP, BNP, PT, DIFF CBC, MG, HS TROP, LACTIC #### [address] Hematocrit (Bld) [Volume fraction] 38.8 % Normal 38.8-50.0 [facility] Comment on above: Performed By: #### P TT, CMP, BNP, PT, DIFF CBC, MG, HS TROP, LACTIC #### [address] Hemoglobin (Bld) [Mass/Vol] 12.7 g/dL Low 13.0-17.0 [facility] Comment on above: Performed By: #### P TT, CMP, BNP, PT, DIFF CBC, MG, HS TROP, LACTIC #### [address] Lymphocytes (Bld) [#/Vol] 1.0 10*3/uL Normal 1.00-4.8 [facility] Comment on above: Performed By: #### P TT, CMP, BNP, PT, DIFF CBC, MG, HS TROP, LACTIC #### [address] Lymphocytes/100 WBC (Bld) 19.2 % Normal . [facility] Comment on above: Performed By: #### P TT, CMP, BNP, PT, DIFF CBC, MG, HS TROP, LACTIC #### [address] MCH (RBC) [Entitic mass] 29.2 pg Normal 27.5-35.2 [facility] Comment on above: Performed By: #### P TT, CMP, BNP, PT, DIFF CBC, MG, HS TROP, LACTIC #### [address] MCV (RBC) [Entitic vol] 89.1 fL Normal 83.5-101 F [facility] Comment on above: Performed By: #### P TT, CMP, BNP, PT, DIFF CBC, MG, HS TROP, LACTIC #### [facility] [address] Mean Corpuscular HGB Conc 32.7 g/dL Normal 32.5-35.6 [facility] Comment on above: Performed By: #### P TT, CMP, BNP, PT, DIFF CBC, MG, HS TROP, LACTIC #### [facility] [address] Monocytes (Bld) [#/Vol] 0.9 10*3/uL High 0.0-0.8 [facility] Comment on above: Performed By: #### P TT, CMP, BNP, PT, DIFF CBC, MG, HS TROP, LACTIC #### [facility] [address] Monocytes/100 WBC (Bld) 17.1 % Normal . [facility] Comment on above: Performed By: #### P TT, CMP, BNP, PT, DIFF CBC, MG, HS TROP, LACTIC #### [address] Neutrophils (Bld) [#/Vol] 2.7 10*3/uL Normal 1.8-7.7 [facility] Comment on above: Performed By: #### P TT, CMP, BNP, PT, DIFF CBC, MG, HS TROP, LACTIC #### [address] Neutrophils/100 WBC (Bld) 53.4 % Normal . [facility] Comment on above: Performed By: #### P TT, CMP, BNP, PT, DIFF CBC, MG, HS TROP, LACTIC #### [address] NRBC% 0.1 /100{WBC} Normal 0-0.5 [facility] Comment on above: Performed By: #### P TT, CMP, BNP, PT, DIFF CBC, MG, HS TROP, LACTIC #### [address] Platelet mean volume (Bld) [Entitic vol] 9.0 fL Normal 6.6-10.1 [facility] Comment on above: Performed By: #### P TT, CMP, BNP, PT, DIFF CBC, MG, HS TROP, LACTIC #### [address] Platelets (Bld) [#/Vol] 170 10*3/uL Normal 150-450 [facility] Comment on above: Performed By: #### P TT, CMP, BNP, PT, DIFF CBC, MG, HS TROP, LACTIC #### [address] RBC (Bld) [#/Vol] 4.36 10*6/uL Normal 3.90-5.60 [facility] Comment on above: Performed By: #### P TT, CMP, BNP, PT, DIFF CBC, MG, HS TROP, LACTIC #### [address] WBC (Bld) [#/Vol] 5.0 10*3/uL Normal 4.1-10.5 [facility] Comment on above: Performed By: #### P TT, CMP, BNP, PT, DIFF CBC, MG, HS TROP, LACTIC #### [address] Creatinineon 01-15-2023 Creatinine [Mass/Vol] 1.22 mg/dL Normal 0.70-1.30 [facility] Comment on above: Performed By: #### P TT, CMP, BNP, PT, DIFF CBC, MG, HS TROP, LACTIC #### [address] GFR/1.73 sq M.predicted MDRD (S/P/Bld) [Vol rate/Area] mL/min/{1.73_m2} [facility] Comment on above: Performed By: #### P TT, CMP, BNP, PT, DIFF CBC, MG, HS TROP, LACTIC #### [address] Creatinine [Mass/volume] in Serum or PlasmaOrdered By: Joselito Madsen on 01-15-2023 Creatinine [Mass/Vol] 1.22 mg/dL 0.70-1.30 [facility] ECG 12 lead ECGon 01-15-2023 ECG 12 lead ECG [facility] Main [place] [address] [place] [address] Electrocardiograph Report Signed Patient: Aisha Julien MR#: [id number] : 1955 Acct:[id number] Age/Sex: 67 / M ADM Date: 01/15/23 Loc: PS Room: Type: [facility] Attending Dr: Joselito Madsen DO Ordering Provider: Joselito Madsen DO Date of Service: 01/15/23 ECG/ECG 12 lead ECG: [facility] Copies to: Test Reason : Blood Pressure [...] Signed By Paty Mackey MD 1943 Normal [facility] Electrolyteson 01-15-2023 Anion gap [Moles/Vol] 10.5 mmol/L Normal 6.0-15.0 [facility] Comment on above: Performed By: #### P TT, CMP, BNP, PT, DIFF CBC, MG, HS TROP, LACTIC #### [facility] [address] [place] [address] [place] Chloride [Moles/Vol] 108 mmol/L High 98-107 [facility] Comment on above: Performed By: #### P TT, CMP, BNP, PT, DIFF CBC, MG, HS TROP, LACTIC #### [facility] [address] [place] [address] [place] CO2 [Moles/Vol] 24.1 mmol/L Normal 21.0-31.0 [facility] Comment on above: Performed By: #### P TT, CMP, BNP, PT, DIFF CBC, MG, HS TROP, LACTIC #### [facility] [address] Potassium [Moles/Vol] 4.6 mmol/L Normal 3.5-5.1 [facility] Comment on above: Performed By: #### P TT, CMP, BNP, PT, DIFF CBC, MG, HS TROP, LACTIC #### [facility] [address] Sodium [Moles/Vol] 138 mmol/L Normal 136-145 [facility] Comment on above: Performed By: #### P TT, CMP, BNP, PT, DIFF CBC, MG, HS TROP, LACTIC #### [facility] [address] Eosinophils Auto (Bld) [#/Vo l]Ordered By: Joselito Madsen on 01-15-2023 Eosinophils (Bld) [#/Vol] 0.5 10*3/uL 0.0-0.45 [facility] Eosinophils/100 WBC Auto (Bl d)Ordered By: Joselito Madsen on 01-15-2023 Eosinophils/100 WBC (Bld) 9.6 % . [facility] Erythrocyte distribution wid th Auto (RBC) [Ratio]Ordered By: Joselito Madsen on 01-15-2023 Erythrocyte distribution width (RBC) [Ratio] 13.3 % 12.0-14.8 [facility] Hematocrit Auto (Bld) [Volum e fraction]Ordered By: Joselito Madsen on 01-15-2023 Hematocrit (Bld) [Volume fraction] 38.8 % 38.8-50.0 [facility] Hemoglobin [Mass/volume] in BloodOrdered By: Joselito Madsen on 01-15-2023 Hemoglobin (Bld) [Mass/Vol] 12.7 g/dL 13.0-17.0 [facility] Laboratory - Chemistry and C hemistry - challengeon 01-15-2023 Cholesterol [Mass/Vol] 123\S\123 below low threshold 140-200 [facility] [address] DO Work Phone: Comment on above: Chol less than 200 m g/dl low risk Chol 201-239 mg/dl borderline risk Chol 240 mg/dl and greater high risk Cholesterol in LDL [Mass/Vol] 49\S\49 Normal 0-100 -[facility] [facility] [address] DO Work Phone: Comment on above: LDL ATP III CLASSIFI CATION LDL less than 100 mg/dL Optimal LDL 100-129 mg/dL Near or above optimal LDL 130-159 mg/dL Borderline high LDL 160-189 mg/dL High LDL greater than 189 mg/dL Very high Laboratory - CoagulationOrde red By: Joselito Madsen on 01-15-2023 PT Coag (PPP) [Time] 11.0 s 9.0-12.9 [facility] Leukocytes [#/volume] correc johnnie for nucleated erythrocytes in Blood by Automated counOrdered By: Joselito Madsen on 01-15-2023 WBC corrected for nucl RBC Auto (Bld) [#/Vol] 5.0 10*3/uL 4.1-10.5 [facility] Lipid Panelon 01-15-2023 Cholesterol [Mass/Vol] 123 mg/dL Low 140-200 [facility] Comment on above: Result Comment: Chol less than 200 mg/dl low risk Chol 201-239 mg/dl borderline risk Chol 240 mg/dl and greater high risk Performed By: #### P TT, CMP, BNP, PT, DIFF CBC, MG, HS TROP, LACTIC #### [facility] [address] [place] [id number] [place] Cholesterol in HDL [Mass/Vol] 64 mg/dL Normal 29-71 [facility] Comment on above: Result Comment: HDL CHOL ATP-III CLASSIFICATION Cardiovascular Risk HDL > or equal to 60 mg/dL LOW HDL < 40 mg/dL HIGH Performed By: #### P TT, CMP, BNP, PT, DIFF CBC, MG, HS TROP, LACTIC #### [facility] [address] [place] [address] [facility] Cholesterol.total/Kimberly sterol in HDL [Mass ratio] 1.9 {ratio} Normal <5.0 [facility] Comment on above: Result Comment: PERF ORMED BY: [place] [address] PATHOLOGIST TELEMEDICINE PHYSICIAN RAHEL TREVINO M.D. Performed By: #### P TT, CMP, BNP, PT, DIFF CBC, MG, HS TROP, LACTIC #### [facility] [address] LDL Cholesterol,Calculated 49 mg/dL Normal 0-100 [facility] Comment on above: Result Comment: LDL ATP III CLASSIFICATION LDL less than 100 mg/dL Optimal LDL 100-129 mg/dL Near or above optimal LDL 130-159 mg/dL Borderline high LDL 160-189 mg/dL High LDL greater than 189 mg/dL Very high Performed By: #### P TT, CMP, BNP, PT, DIFF CBC, MG, HS TROP, LACTIC #### [address] Triglyceride w/Reflex 51 mg/dL Normal 0-149 [facility] Comment on above: Result Comment: TRIG ATP III CLASSIFICATION TRIG less than 150 mg/dL Normal TRIG 150-199 mg/dL Borderline high TRIG 200-500 mg/dL High TRIG greater than 500 mg/dL Very high Standard traceable to the Center for Disease Conrtrol and Prevention (CDC) test method. Performed By: #### P TT, CMP, BNP, PT, DIFF CBC, MG, HS TROP, LACTIC #### [facility] [address] VLDL CHOLESTEROL 10 mg/dL Normal [facility] Comment on above: Performed By: #### P TT, CMP, BNP, PT, DIFF CBC, MG, HS TROP, LACTIC #### [facility] [address] [place] [address] [place] Lymphocytes Auto (Bld) [#/Vo l]Ordered By: Joselito Madsen on 01-15-2023 Lymphocytes (Bld) [#/Vol] 1.0 10*3/uL 1.00-4.8 [facility] Lymphocytes/100 WBC Auto (Bl d)Ordered By: Joselito Madsen on 01-15-2023 Lymphocytes/100 WBC (Bld) 19.2 % . [facility] MCH Auto (RBC) [Entitic mass ]Ordered By: Joselito Madsen on 01-15-2023 MCH (RBC) [Entitic mass] 29.2 pg 27.5-35.2 [facility] MCHC Auto (RBC) [Mass/Vol]Or dered By: Joselito Madsen on 01-15-2023 MCHC (RBC) [Mass/Vol] 32.7 g/dL 32.5-35.6 [facility] MCV Auto (RBC) [Entitic vol] Ordered By: Joselito Madsen on 01-15-2023 MCV (RBC) [Entitic vol] 89.1 fL 83.5-101 F [facility] Monocytes Auto (Bld) [#/Vol] Ordered By: Joselito Madsen on 01-15-2023 Monocytes (Bld) [#/Vol] 0.9 10*3/uL 0.0-0.8 [facility] Monocytes/100 WBC Auto (Bld) Ordered By: Joselito Madsen on 01-15-2023 Monocytes/100 WBC (Bld) 17.1 % . F [facility] Neutrophils Auto (Bld) [#/Vo l]Ordered By: Joselito Madsen on 01-15-2023 Neutrophils (Bld) [#/Vol] 2.7 10*3/uL 1.8-7.7 [facility] Neutrophils/100 WBC Auto (Bl d)Ordered By: Joselito Madsen on 01-15-2023 Neutrophils/100 WBC (Bld) 53.4 % . [facility] No Panel InformationOrdered By: Joselito Madsen on 01-15-2023 Estimated GFR (CKD-EPI) > 60.0 mL/Min [facility] Creatinine Clearance (Chem N/A [facility] No Panel Informationon 01-15 0.0\S\0.0 Normal 0.0-0.2 [facility] y 250 DO Work Phone: Comment on above: PERFORMED BY:[facility] [place], [place] [id number] MEDICAL DIRECTORRAHEL TREVINO M.D. 0.5\S\0.5 above high threshold 0.0-0.45 [facility] y 250 DO Work Phone: [phone] 0.9\S\0.9 above high threshold 0.0-0.8 [facility] 250 DO Work Phone: [phone] 1.0\S\1.0 Normal [facility] y 250 DO Work Phone: [phone] Comment on above: INR Therapeutic Rang [...] valves: 3 - 4.5 2.7\S\2.7 Normal 1.8-7.7 [facility] Heart[facility] cosme 250 DO Work Phone: [phone] 0.1\S\0.1 Normal 0-0.5 [facility] Yareli cosme 250 DO Work Phone: [phone] 0.7\S\0.7 Normal . [facility] y 250 DO Work Phone: [phone] 9.6\S\9.6 Normal . [facility] 250 DO Work Phone: [phone] 17.1\S\17.1 Normal . [facility] cosme 250 DO Work Phone: [phone] 19.2\S\19.2 Normal . [facility] 250 DO Work Phone: [phone] 53.4\S\53.4 Normal . [facility] 250 DO Work Phone: [phone] 9.0\S\9.0 Normal 6.6-10.1 [facility] 250 DO Work Phone: [phone] 170\S\170 Normal 150-450 [facility] 250 DO Work Phone: [phone] 13.3\S\13.3 Normal 12.0-14.8 [facility] 250 DO Work Phone: [phone] 32.7\S\32.7 Normal 32.5-35.6 [facility] 250 DO Work Phone: [phone] 29.2\S\29.2 Normal 27.5-35.2 [facility] 250 DO Work Phone: [phone] 89.1\S\89.1 Normal 83.5-101 [facility] 250 DO Work Phone: [phone] 38.8\S\38.8 Normal 38.8-50.0 [facility] 250 DO Work Phone: [phone] 12.7\S\12.7 below low threshold 13.0-17.0 [facility] 250 DO Work Phone: [phone] 4.36\S\4.36 Normal 3.90-5.60 [facility] 250 DO Work Phone: [phone] 5.0\S\5.0 Normal 4.1-10.5 [facility] 250 DO Work Phone: [phone] 29.1\S\29.1 Normal 25.1-36.5 [facility] 250 DO Work Phone: [phone] Comment on above: PERFORMED BY:[place] [address] [place], [place] [phone] MEDICAL DIRECTORRAHEL TREVINO M.D. 11.0\S\11.0 Normal 9.0-12.9 [facility] 250 DO Work Phone: [phone] 10.5\S\10.5 Normal 6.0-15.0 [facility] 250 DO Work Phone: [phone] 24.1\S\24.1 Normal 21.0-31.0 [facility] Yareli y 250 DO Work Phone: [phone] 108\S\108 above high threshold 98-107 [facility] Yareli cosme 250 DO Work Phone: [phone] 4.6\S\4.6 Normal 3.5-5.1 [facility] Yareli cosme 250 DO Work Phone: [phone] 138\S\138 Normal 136-145 [facility] Yareli cosme 250 DO Work Phone: [phone] 19\S\19 Normal 7-25 [facility] Yareli cosme 250 DO Work Phone: [phone] > 60.0 Normal [facility] Yareli cosme 250 DO Work Phone: [phone] 1.22\S\1.22 Normal 0.70-1.30 [facility] Yareli cosme 250 DO Work Phone: [phone] 1.9\S\1.9 Normal <5.0 [facility] Yareli cosme 250 DO Work Phone: [phone] Comment on above: PERFORMED BY:[facility] [place], [place] [id number] MEDICAL DIRECTORRAHEL TREVINO M.D. 10\S\10 Normal [facility] Yareli cosme 250 DO Work Phone: [phone] 51\S\51 Normal 0-149 [facility] Yareli cosme 250 DO Work Phone: [phone] Comment on above: TRIG ATP III CLASSIF ICATION TRIG less than 150 mg/dL Normal TRIG 150-199 mg/dL Borderline high TRIG 200-500 mg/dL High TRIG greater than 500 mg/dL Very high Standard traceable to the Center for Disease Conrtrol and Prevention (CDC) test method. 64\S\64 Normal 29-71 [facility] Yareli cosme 250 DO Work Phone: [phone] Comment on above: HDL CHOL ATP-III CLA SSIFICATION Cardiovascular Risk HDL > or equal to 60 mg/dL LOW HDL < 40 mg/dL HIGH Nucleated erythrocytes [Pres ence] in Blood by Automated countOrdered By: Joselito Madsen on 01-15-2023 Nucleated RBC Auto Ql (Bld) 0.1 /100{WBC} 0-0.5 [facility] Platelet mean volume Auto (B ld) [Entitic vol]Ordered By: Joselito Madsen on 01-15-2023 Platelet mean volume (Bld) [Entitic vol] 9.0 fL 6.6-10.1 [facility] Platelet poor plasma interna tional normalized ratio (INR) by coagulation assay (relatOrdered By: Joselito Madsen on 01-15-2023 INR Coag (PPP) [Relative time] 1.0 {INR} [facility] Comment on above: INR Therapeutic Rang [...] 01-15-2023 Platelets (Bld) [#/Vol] 170 10*3/uL 150-450 [facility] Potassium [Moles/volume] in Serum or PlasmaOrdered By: Joselito Madsen on 01-15-2023 Potassium [Moles/Vol] 4.6 mmol/L 3.5-5.1 [facility] RBC Auto (Bld) [#/Vol]Ordere d By: Joselito Madsen on 01-15-2023 RBC (Bld) [#/Vol] 4.36 10*6/uL 3.90-5.60 [facility] Serum or plasma anion gap de terminationOrdered By: Joselito Madsen on 01-15-2023 Anion gap [Moles/Vol] 10.5 mmol/L 6.0-15.0 [facility] Serum or plasma high density lipoprotein (HDL) cholesterol measurementOrdered By: Joselito Madsen on 01-15-2023 Cholesterol in HDL [Mass/Vol] 64 mg/dL 29-71 [facility] Comment on above: HDL CHOL ATP-III CLA SSIFICATION Cardiovascular RiskHDL > or equal to 60 mg/dL LOWHDL < 40 mg/dL HIGH Serum or plasma total choles terol/high density lipoprotein (HDL) cholesterol mass ratOrdered By: Joselito Madsen on 01-15-2023 Cholesterol.total/Kimberly sterol in HDL [Mass ratio] 1.9 {ratio} <5.0 [facility] Sodium [Moles/volume] in Ser um or PlasmaOrdered By: Joselito Madsen on 01-15-2023 Sodium [Moles/Vol] 138 mmol/L 136-145 [facility] Triglyceride [Mass/volume] i n Serum or PlasmaOrdered By: Joselito Madsen on 01-15-2023 Triglyceride [Mass/Vol] 51 mg/dL 0-149 F [facility] Comment on above: TRIG ATP III CLASSIF ICATIONTRIG less than 150 mg/dL NormalTRIG 150-199 mg/dL Borderline highTRIG 200-500 mg/dL High TRIG greater than 500 mg/dL Very highStandard traceable to the Center for Disease Conrtrol and Prevention (CDC) test method. Urea nitrogen [Mass/volume] in Serum or PlasmaOrdered By: Joselito Madsen on 01-15-2023 Urea nitrogen [Mass/Vol] 19 mg/dL 7-25 [facility] WBC Auto (Bld) [#/Vol]Ordere d By: Joselito Madsen on 01-15-2023 WBC (Bld) [#/Vol] 5.0 10*3/uL 4.1-10.5 [facility] Tobacco Screening.on 023 Adult depression screening assessment No [facility] 250 DO Work Phone: Fall risk assessment a) No falls within the last year [facility] 250 DO Work Phone: Tobacco use status [facility] b) No [facility] 250 DO Work Phone: EVENT MONITORon 12-13-2021 [address] MON[address]OR [address] [address] EVENT MONITOR PATIENT NAME: AISHA JULIEN : 1955 MED REC NO: [id number] ROOM: ACCOUNT NO: [id number] ADMIT DATE: 11/07/2021 PROVIDER: Inocencio Gutierrez NAME [...] for symptom control. INOCENCIO GUTIERREZ GV/V_TTHEN_I Doc#: [id number] CC: Rene Cannon [facility] CARDIAC STRESS TESTon 2021 [place] [address] CARDIAC STRESS TEST PATIENT NAME: AISHA JULIEN : 1955 MED REC NO: [id number] ROOM: ACCOUNT NO: [id number] ADMIT DATE: 11/07/2021 PROVIDER: Inocencio Gutierrez DATE [...] remained at 96%. INOCENCIO GUTIERREZ GV/V_TTRMM_I Doc#: [id number] CC: Rene Cannon [facility] CARDIAC STRESS TESTon 2021 CARDIAC STRESS TEST [facility] [id number] CARDIAC STRESS TEST PATIENT NAME: AISHA JULIEN : 1955 MED REC NO: [id number] ROOM: ACCOUNT NO: [id number] ADMIT DATE: 11/07/2021 PROVIDER: Karina Fajardo MD [...] LAURYN/CIARAN_DESTINEEIT Doc#: Unknown CC: Rene Gutierrez Normal [facility] NM MYOCARDIAL SPECT REST EXE RCISE OR RXon 11-07-2021 NM MYOCARDIAL SPECT REST EXERCISE OR RX Radiology exam is complete. No Radiologist dictation. Please follow up with ordering provider. Final result Normal [facility] No Panel Informationon 11-07 Radiology exam is complete. No Radiologist dictation. Please follow up with ordering provider. [facility] RIS CONSOLIDATED STRESS TEST REPORTon 022 Karina Fajardo MD - 11/07/2021 1:54 [place] [address] CARDIAC STRESS TEST PATIENT NAME: AISHA JULIEN : 1955 MED REC NO: [id number] ROOM: ACCOUNT NO: [id number] ADMIT DATE: 11/07/2021 PROVIDER: Karina Fajardo MD [...] MD LAURYN/CIARAN_RALF Doc#: Unknown CC: Rene Gutierrez [facility] [employer] Work Phone: [facility] [employer] Work Phone: VL DUP CAROTID BILATERALon 0 11-07-2021 VL DUP CAROTID BILATERAL Radiology exam is complete. No Radiologist dictation. Please follow up with ordering provider. Final result Normal [facility] Bryan Pichardo Jr., MD - 11/08/2021 [facility] Vascular Carotid Procedure Patient Name MARY BETH LEONARD Date of Study 11/07/2021 L Date of 1955 Gender Male Age 66 year(s) Race Room Number Corporate ID [id number] # Patient Acct [id number] # MR # [id number] Company Controller Jocelyn Mcghee, RT Interpreting Estephania Pichardo Physician [...] side. - Additional Measurements:ICAPSV/CCAP SV 0.63.ICAEDV/CCAEDV 1.31. [employer] Phone: Radiology Study observation (narrative) [employer] Phone: VL DUP CAROTID BILATERALOrde red By: Bryan Pichardo on 11-07-2021 [employer] Phone: XR CHEST 2 Von 10-31-2021 XR [...] DEBORAH PERALTA Date: 2021-10-31 13:46 Normal [facility] Complete Blood Count with Au to Diffon 10-16-2021 Basophils (Bld) [#/Vol] 0.04 10*3/uL Normal 0.00-0.20 [facility] Specialist Comment on above: Performed By: #### C MP, TSH reflex FT4, CBCAD, MG, VITD, LIPD #### [facility] [address] [place], [place] [id number] Basophils/100 WBC (Bld) 0.7 % Normal N [facility] Specialist Comment on above: Performed By: #### C MP, TSH reflex FT4, CBCAD, MG, VITD, LIPD #### [facility] [address] [place], [place] [id number] Eosinophils (Bld) [#/Vol] 0.12 10*3/uL Normal 0.02-0.50 [facility] Specialist Comment on above: Performed By: #### C MP, TSH reflex FT4, CBCAD, MG, VITD, LIPD #### [facility] [address] [place], [place] [id number] Eosinophils/100 WBC (Bld) 2.2 % Normal [facility] Specialist Comment on above: Performed By: #### C MP, TSH reflex FT4, CBCAD, MG, VITD, LIPD #### [facility] [address] [place], [place] [id number] Erythrocyte distribution width (RBC) [Ratio] 14.5 % Normal 11.0-15.0 [facility] Specialist Comment on above: Performed By: #### C MP, TSH reflex FT4, CBCAD, MG, VITD, LIPD #### [facility] [address] [place], [place] [id number] Hematocrit (Bld) [Volume fraction] 38.2 % Low 38.5-50.0 [facility] Specialist Comment on above: Performed By: #### C MP, TSH reflex FT4, CBCAD, MG, VITD, LIPD #### [facility] [address] [place], [place] [id number] Hemoglobin (Bld) [Mass/Vol] 12.3 g/dL Low 13.0-17.1 [facility] Specialist Comment on above: Performed By: #### C MP, TSH reflex FT4, CBCAD, MG, VITD, LIPD #### [facility] [address] [place], [place] [id number] Lymphocytes (Bld) [#/Vol] 1.2 10*3/uL Normal 0.9-3.9 [facility] Specialist Comment on above: Performed By: #### C MP, TSH reflex FT4, CBCAD, MG, VITD, LIPD #### [facility] [address] [place], [place] [id number] Lymphocytes/100 WBC (Bld) 22.1 % Normal [facility] Specialist Comment on above: Performed By: #### C MP, TSH reflex FT4, CBCAD, MG, VITD, LIPD #### [facility] [address] [place], [place] [id number] MCH (RBC) [Entitic mass] 29.4 pg Normal 27.0-33.0 [facility] Specialist Comment on above: Performed By: #### C MP, TSH reflex FT4, CBCAD, MG, VITD, LIPD #### [facility] [address] [place], [place] [id number] MCHC (RBC) [Mass/Vol] 32.2 g/dL Normal 32.0-36.0 [facility] Specialist Comment on above: Performed By: #### C MP, TSH reflex FT4, CBCAD, MG, VITD, LIPD #### [facility] [address] [place], [place] [id number] MCV (RBC) [Entitic vol] 91 fL Normal 80-100 N [facility] Specialist Comment on above: Performed By: #### C MP, TSH reflex FT4, CBCAD, MG, VITD, LIPD #### [facility] [address] [place], [place] [id number] Monocytes (Bld) [#/Vol] 0.9 10*3/uL Normal 0.2-0.9 [facility] Specialist Comment on above: Performed By: #### C MP, TSH reflex FT4, CBCAD, MG, VITD, LIPD #### [facility] [address] [place], [place] [id number] Monocytes/100 WBC (Bld) 16.4 % Normal N [facility] Comment on above: Performed By: #### C MP, TSH reflex FT4, CBCAD, MG, VITD, LIPD #### [facility] [address] [place], [place] [id number] Neutrophils (Bld) [#/Vol] 3.1 10*3/uL Normal 1.5-7.8 [facility] Specialist Comment on above: Performed By: #### C MP, TSH reflex FT4, CBCAD, MG, VITD, LIPD #### [facility] [address] [place], [place] [id number] Neutrophils/100 WBC (Bld) 57.5 % Normal [facility] Comment on above: Performed By: #### C MP, TSH reflex FT4, CBCAD, MG, VITD, LIPD #### [facility] [address] [place], [place] [id number] Platelet mean volume (Bld) [Entitic vol] 10.30 fL Normal 7.50-12.50 [facility] Comment on above: Performed By: #### C MP, TSH reflex FT4, CBCAD, MG, VITD, LIPD #### [facility] [address] [place], [place] [id number] Platelets (Bld) [#/Vol] 266 10*3/uL Normal 140-400 [facility] Specialist Comment on above: Performed By: #### C MP, TSH reflex FT4, CBCAD, MG, VITD, LIPD #### [facility] [address] [place], [place] [id number] RBC (Bld) [#/Vol] 4.19 10*6/uL Low 4.20-5.80 [place] [employer] Comment on above: Performed By: #### C MP, TSH reflex FT4, CBCAD, MG, VITD, LIPD #### [facility] [address] [place], [place] [id number] RDW-SD 48.1 fL Normal 37.0-50.0 [facility] [employer] Comment on above: Performed By: #### C MP, TSH reflex FT4, CBCAD, MG, VITD, LIPD #### [facility] [address] [place], [place] [id number] WBC (Bld) [#/Vol] 5.4 10*3/uL Normal 3.8-11.0 [facility] [employer] Comment on above: Performed By: #### C MP, TSH reflex FT4, CBCAD, MG, VITD, LIPD #### [facility] [address] [place], [place] [id number] Comprehensive Metabolic Pane jefry 10-16-2021 Albumin [Mass/Vol] 4.2 g/dL Normal 3.6-5.1 [facility] [employer] Comment on above: Performed By: #### C MP, TSH reflex FT4, CBCAD, MG, VITD, LIPD #### [facility] [address] [place], [place] [id number] Albumin/Globulin [Mass ratio] 1.6 {ratio} Normal 1.0-2.5 [facility] [employer] Comment on above: Performed By: #### C MP, TSH reflex FT4, CBCAD, MG, VITD, LIPD #### [facility] [address] [place], [place] [id number] ALP [Catalytic activity/Vol] 103 U/L Normal 40-129 [facility] [employer] Comment on above: Performed By: #### C MP, TSH reflex FT4, CBCAD, MG, VITD, LIPD #### [facility] [address] [place], [place] [id number] ALT [Catalytic activity/Vol] 11 U/L Normal 9-46 [facility] [employer] Comment on above: Result Comment: 07/25 Female reference range changed. Performed By: #### C MP, TSH reflex FT4, CBCAD, MG, VITD, LIPD #### [facility] [address] [place], [place] [id number] Anion gap [Moles/Vol] 19 mmol/L Normal 12-20 [facility] Comment on above: Result Comment: Pedrito ctive 08/30/2019 reference range changed. Performed By: #### C MP, TSH reflex FT4, CBCAD, MG, VITD, LIPD #### [facility] [address] [place], [place] [id number] AST [Catalytic activity/Vol] 17 U/L Normal 10-40 [facility] Comment on above: Performed By: #### C MP, TSH reflex FT4, CBCAD, MG, VITD, LIPD #### [facility] [address] [place], [place] [id number] Bilirubin [Mass/Vol] 0.37 mg/dL Normal 0.30-1.[address] [facility] Comment on above: Performed By: #### C MP, TSH reflex FT4, CBCAD, MG, VITD, LIPD #### [facility] [address] [place], [place] [id number] BUN/CREA 15 Ratio Normal 6-22 [facility] Comment on above: Performed By: #### C MP, TSH reflex FT4, CBCAD, MG, VITD, LIPD #### [facility] [address] [place], [place] [id number] Calcium [Mass/Vol] 9.5 mg/dL Normal 8.6-10.[address] [facility] Comment on above: Performed By: #### C MP, TSH reflex FT4, CBCAD, MG, VITD, LIPD #### [facility] [address] [place], [place] [id number] Chloride [Moles/Vol] 104 mmol/L Normal 98-[address] [facility] Comment on above: Performed By: #### C MP, TSH reflex FT4, CBCAD, MG, VITD, LIPD #### [facility] [address] [place], [place] [id number] CO2 [Moles/Vol] 21 mmol/L Normal 20-31 [facility] Comment on above: Performed By: #### C MP, TSH reflex FT4, CBCAD, MG, VITD, LIPD #### [facility] [address] [place], [place] [id number] Creatinine [Mass/Vol] 0.9 mg/dL Normal 0.7-1.4 [facility] Comment on above: Performed By: #### C MP, TSH reflex FT4, CBCAD, MG, VITD, LIPD #### [facility] [address] [place], [place] [id number] eGFRAA 100 mL/min/1.73m2 Normal >60 [facility] Comment on above: Performed By: #### C MP, TSH reflex FT4, CBCAD, MG, VITD, LIPD #### [facility] [address] [place], [place] [id number] eGFRNAA 82 mL/min/1.73m2 Normal >60 [facility] Comment on above: Performed By: #### C MP, TSH reflex FT4, CBCAD, MG, VITD, LIPD #### [facility] [address] [place], [place] [id number] Globulin (S) [Mass/Vol] 2.6 g/dL Normal 1.9-3.7 [facility] Comment on above: Performed By: #### C MP, TSH reflex FT4, CBCAD, MG, VITD, LIPD #### [facility] [address] [place], [place] [id number] Glucose [Mass/Vol] 92 mg/dL Normal 65-[address] [facility] Comment on above: Result Comment: For FASTING Glucose --- ADA reference ranges: Normal 65-99 mg/dl Prediabetes 100-125 Diabetes >/= 126 Performed By: #### C MP, TSH reflex FT4, CBCAD, MG, VITD, LIPD #### [facility] [address] [place], [place] [id number] Potassium [Moles/Vol] 4.8 mmol/L Normal 3.5-5.5 [facility] Comment on above: Performed By: #### C MP, TSH reflex FT4, CBCAD, MG, VITD, LIPD #### [facility] [address] [place], [place] [id number] Protein [Mass/Vol] 6.8 g/dL Normal 6.1-8.1 [facility] [place] [employer] Comment on above: Performed By: #### C MP, TSH reflex FT4, CBCAD, MG, VITD, LIPD #### [facility] [address] [place], [place] [id number] Sodium [Moles/Vol] 139 mmol/L Normal 135-146 [facility] [place] [employer] Comment on above: Performed By: #### C MP, TSH reflex FT4, CBCAD, MG, VITD, LIPD #### [facility] [address] [place], [place] [id number] Urea nitrogen [Mass/Vol] 14 mg/dL Normal 7-25 [facility] Comment on above: Performed By: #### C MP, TSH reflex FT4, CBCAD, MG, VITD, LIPD #### [facility] [address] [place], [place] [id number] Lipid Panelon 10-16-2021 Cholesterol [Mass/Vol] 158 mg/dL Normal 125-200 [facility] Comment on above: Result Comment: Low risk < 200mg/dL Borderline risk 201-239 mg/dl High risk > or equal to 240 Performed By: #### C MP, TSH reflex FT4, CBCAD, MG, VITD, LIPD #### [facility] [address] [place], [place] [id number] Cholesterol in HDL [Mass/Vol] 65 mg/dL Normal >40 [facility] Comment on above: Result Comment: High Cardiovascular Risk HDL <40 mg/dL Low Cardiovascular Risk HDL > or equal to 60 mg/dl Performed By: #### C MP, TSH reflex FT4, CBCAD, MG, VITD, LIPD #### [facility] [address] [place], [place] [id number] Cholesterol in LDL [Mass/Vol] 81 mg/dL Normal [facility] Comment on above: Result Comment: LDL ATP III CLASSIFICATION LDL less than 100 mg/dl Optimal LDL 100-129 mg/dl Near or above optimal LDL 130-159 Borderline high LDL 160-189 High LDL greater than 189 mg/dl Very High Performed By: #### C MP, TSH reflex FT4, CBCAD, MG, VITD, LIPD #### [facility] [address] [place], [place] [id number] Cholesterol in VLDL [Mass/Vol] 12 mg/dL Normal [facility] Comment on above: Performed By: #### C MP, TSH reflex FT4, CBCAD, MG, VITD, LIPD #### [facility] [address] [place], [place] [id number] Cholesterol.total/Kimberly sterol in HDL [Mass ratio] 2 {ratio} Normal [facility] Comment on above: Performed By: #### C MP, TSH reflex FT4, CBCAD, MG, VITD, LIPD #### [facility] [address] [place], [place] [id number] Triglyceride [Mass/Vol] 60 mg/dL Normal 30-150 [facility] Comment on above: Result Comment: TRIG ATPIII CLASSIFICATIONS TRIG less than 150 mg/dl Normal TRIG 150-199 mg/dl Borderline High TRIG 200-500 mg/dl High TRIG greather than 500 mg/dl Very High Performed By: #### C MP, TSH reflex FT4, CBCAD, MG, VITD, LIPD #### [facility] [address] [place], [place] [id number] Magnesiumon 10-16-2021 Magnesium [Mass/Vol] 1.9 mg/dL Normal 1.5-2.[address] [facility] Comment on above: Performed By: #### C MP, TSH reflex FT4, CBCAD, MG, VITD, LIPD #### [facility] [address] [place], [place] [id number] TSH w/ Reflex to Free T4on 0 10-16-2021 TSH 1.370 uIU/mL Normal 0.400-4.50 0 [facility] Comment on above: Performed By: #### C MP, TSH reflex FT4, CBCAD, MG, VITD, LIPD #### [facility] [address] [place], [place] [id number] Vitamin D 25-OHon 10-16-2021 VIT D 25 OH 28 ng/ml Low >29 [facility] Comment on above: Result Comment: Karissa min D Status Deficiency <20 ng/mL Insufficiency 20-29 ng/mL Optimal 30-100 ng/mL Possible Toxicity >=150 ng/mL Performed By: #### C MP, TSH reflex FT4, CBCAD, MG, VITD, LIPD #### [facility] [address] [place] [id number] XR CHEST 2 Von 09-11-2021 XR CHEST [...] DEBORAH PERALTA Date: 2021-09-11 11:13 Normal [facility] PROF CHEM 8 (BAS METB)on Anion gap [Moles/Vol] 19.0 mmol/L Normal [facility] Comment on above: Performed By: #### B MP #### [facility] [address] [place] [address] Dr. Vadim Koehler Calcium [Mass/Vol] 9.0 mg/dL Normal 8.4-10.2 [facility] Comment on above: Performed By: #### B MP #### [facility] [address] [place] [address] Dr. Vadim Koehler Chloride [Moles/Vol] 97 mmol/L Critically low 98-107 [facility] Comment on above: Performed By: #### B MP #### [facility] [address] [address] [address] Vadim Koehler CO2 [Moles/Vol] 20.0 mmol/L Critically low 22.0-30.0 [facility] Comment on above: Performed By: #### B MP #### [facility] [address] [place] [address] Dr. Vadim Koehler Creatinine [Mass/Vol] 3.03 mg/dL Critically high 0.66-1.25 [facility] Comment on above: Performed By: #### B MP #### [facility] [address] [address] [address] Vadim Koehler EGFR-AF TUVALUAN 25 mL/min/1.73m2 Critically low >=60 [facility] Comment on above: Performed By: #### B MP #### [facility] [address] [address] [address] Vadim Koehler EGFR-NON AF TUVALUAN 21 mL/min/1.73m2 Critically low >=60 [facility] Comment on above: Performed By: #### B MP #### [facility] [address] [address] [address] Vadim Koehler Glucose [Mass/Vol] 120 mg/dL Critically high 74-106 T [facility] Comment on above: Performed By: #### B MP #### [facility] [address] [address] [address] Vadim Koehler Potassium [Moles/Vol] 4.0 mmol/L Normal 3.4-5.0 [facility] Comment on above: Performed By: #### B MP #### [facility] [address] [address] [address] Vadim Koehler Sodium [Moles/Vol] 132 mmol/L Critically low 137-145 Th [facility] Comment on above: Performed By: #### B MP #### [facility] [address] [address] [address] Vadim Koehler Urea nitrogen [Mass/Vol] 47.0 mg/dL Critically high 9.0-20.0 [facility] Comment on above: Performed By: #### B MP #### [facility] [address] [address] [address] Vadim Koehler Urea nitrogen/Creatinine [Mass ratio] 15.5 mg/mg Normal [facility] Comment on above: Performed By: #### B MP #### [facility] [address] [address] [address] Vadim Koehler Vital Signs Date Time Vital Sign Value Performing Clinician Facility 10-13-2023 10:59-0500 Body height 176.5 cm Pacc 2 Work Phone: [facility] 10-13-2023 10:59-0500 Body temperature 98.49 [degF] Pacc 2 Work Phone: [facility] 10-13-2023 10:59-0500 Body weight 75.8 kg Pacc 2 Work Phone: [facility] 10-13-2023 10:59-0500 Diastolic blood pressure 57 mm[Hg] Pacc 2 Work Phone: [facility] 10-13-2023 10:59-0500 Heart rate 77 /min Pacc 2 Work Phone: [facility] 10-13-2023 10:59-0500 SaO2% (BldA) [Mass fraction] 100 % Pacc 2 Work Phone: [facility] 10-13-2023 10:59-0500 Systolic blood pressure 103 mm[Hg] Pacc 2 Work Phone: [facility] 10-10-2023 11:33-0500 Body temperature 98.1 [degF] MD Rene Cannon Work Phone: [facility] 10-10-2023 11:33-0500 Diastolic blood pressure 72 mm[Hg] MD Rene Cannon Work Phone: [facility] 10-10-2023 11:33-0500 Heart rate 65 /min MD Rene Cannon Work Phone: [facility] 10-10-2023 11:33-0500 Respiratory rate 20 /min MD Rene Cannon Work Phone: [facility] 10-10-2023 11:33-0500 SaO2% (BldA) [Mass fraction] 99 % MD Rene Cannon Work Phone: [facility] 10-10-2023 11:33-0500 Systolic blood pressure 128 mm[Hg] MD Rene Cannon Work Phone: [facility] 10-10-2023 05:28-0500 Body weight 76.8 kg MD Rene Cannon Work Phone: [facility] 10-09-2023 12:16-0500 Body height 175.26 cm MD Rene Cannon Work Phone: [facility] 10-06-2023 22:22-0500 Diastolic blood pressure 54 mm[Hg] MD Rene Cannon Work Phone: [facility] 10-06-2023 22:22-0500 Heart rate 65 /min MD Rene Cannon Work Phone: [facility] 10-06-2023 22:22-0500 Respiratory rate 18 /min MD Rene Cannon Work Phone: [facility] 10-06-2023 22:22-0500 SaO2% (BldA) [Mass fraction] 98 % MD Rene Cannon Work Phone: [facility] 10-06-2023 22:22-0500 Systolic blood pressure 96 mm[Hg] MD Rene Cannon Work Phone: [facility] 10-06-2023 13:36-0500 Body height 175.26 cm MD Rene Cannon Work Phone: [facility] 10-06-2023 13:36-0500 Body temperature 98.2 [degF] MD Rene Cannon Work Phone: [facility] 10-06-2023 13:36-0500 Body weight 72 kg MD Rene Cannon Work Phone: [facility] 10-02-2023 14:14-0500 Body height 176.5 cm Cleveland Alberts MD Work Phone: [facility] 10-02-2023 14:14-0500 Body temperature 97.7 [degF] Cleveland Alberts MD Work Phone: [facility] 10-02-2023 14:14-0500 Body weight 68.04 kg Cleveland Alberts MD Work Phone: [facility] 10-02-2023 14:14-0500 Diastolic blood pressure 72 mm[Hg] Cleveland Alberts MD Work Phone: [facility] 10-02-2023 14:14-0500 Heart rate 76 /min Cleveland Alberts MD Work Phone: [facility] 10-02-2023 14:14-0500 Respiratory rate 16 /min Cleveland Alberts MD Work Phone: [facility] 10-02-2023 14:14-0500 Systolic blood pressure 127 mm[Hg] Cleveland Alberts MD Work Phone: [facility] 08-07-2023 13:50-0500 Body weight 63.5 kg Cleveland Alberts MD Work Phone: [facility] 08-07-2023 13:50-0500 Diastolic blood pressure 63 mm[Hg] Cleveland Alberts MD Work Phone: [facility] 08-07-2023 13:50-0500 Heart rate 139 /min Celveland Alberts MD Work Phone: [facility] 08-07-2023 13:50-0500 Systolic blood pressure 94 mm[Hg] Cleveland Alberts MD Work Phone: [facility] 07-26-2023 15:20-0500 Body temperature 97.7 [degF] MD Rene Cannon Work Phone: [facility] 07-26-2023 15:20-0500 Diastolic blood pressure 69 mm[Hg] MD Rene Cannon Work Phone: [facility] 07-26-2023 15:20-0500 Heart rate 58 /min MD Rene Cannon Work Phone: [facility] 07-26-2023 15:20-0500 Respiratory rate 18 /min MD Rene Cannon Work Phone: [facility] 07-26-2023 15:20-0500 SaO2% (BldA) [Mass fraction] 97 % MD Rene Cannon Work Phone: [facility] 07-26-2023 15:20-0500 Systolic blood pressure 128 mm[Hg] MD Rene Cannon Work Phone: [facility] 07-26-2023 03:59-0500 Body weight 74.9 kg MD Rene Cannon Work Phone: [facility] 07-25-2023 14:39-0500 Body height 175.26 cm MD Rene Cannon Work Phone: [facility] 07-24-2023 18:07-0500 Diastolic blood pressure 56 mm[Hg] MD Rene Cannon Work Phone: [facility] 07-24-2023 18:07-0500 Heart rate 58 /min MD Rene Cannon Work Phone: [facility] 07-24-2023 18:07-0500 Respiratory rate 18 /min MD Rene Cannon Work Phone: [facility] 07-24-2023 18:07-0500 SaO2% (BldA) [Mass fraction] 100 % MD Rene Cannon Work Phone: [facility] 07-24-2023 18:07-0500 Systolic blood pressure 100 mm[Hg] MD Rene Cannon Work Phone: [facility] 07-24-2023 12:15-0500 Body height 175.26 cm MD Rene Cannon Work Phone: [facility] 07-24-2023 12:15-0500 Body temperature 97.6 [degF] MD Rene Cannon Work Phone: [facility] 07-24-2023 12:15-0500 Body weight 72.5 kg MD Rene Cannon Work Phone: [facility] 02-22-2023 11:30-0400 Body height 176.53 cm Chantal Castellanos Other [facility] Other 02-22-2023 11:30-0400 Body mass index (BMI) [Ratio] 25.79 kg/m2 Chantal Castellanos Other [facility] Other 02-22-2023 11:30-0400 Body temperature 98.9 [degF] Chantal Castellanos Other [facility] Other 02-22-2023 11:30-0400 Body weight 80.38 kg Chantal Castellanos Other [facility] Other 02-22-2023 11:30-0400 Respiratory rate 18 /min Chantal Castellanos Other [facility] Other 02-22-2023 11:30-0400 SaO2% (BldA) [Mass fraction] 96 % Chantal Castellanos Other [facility] Other 02-06-2023 11:36-0400 Body height 176.53 cm Rene Cannon Work Phone: [facility] [address] DO Work Phone: 02-06-2023 11:36-0400 Body mass index (BMI) [Ratio] 25.62 kg/m2 eRne Cannon Work Phone: [facility] DO Work Phone: 02-06-2023 11:36-0400 Body surface area Derived from formula 1.97 m2 Rene Cannon Work Phone: [facility] [address] DO Work Phone: 02-06-2023 11:36-0400 Body weight 79.83 kg Rene Cannon Work Phone: [facility] [address] DO Work Phone: 02-06-2023 11:36-0400 Diastolic blood pressure 78 mm[Hg] Rene Cannon Work Phone: [facility] DO Work Phone: 02-06-2023 11:36-0400 Heart rate 66 /min Rene Cannon Work Phone: [facility] DO Work Phone: 02-06-2023 11:36-0400 Systolic blood pressure 136 mm[Hg] Rene Cannon Work Phone: [facility] DO Work Phone: 01-17-2023 13:05-0400 Diastolic blood pressure 72 mm[Hg] MD Rene Cannon Work Phone: [facility] 01-17-2023 13:05-0400 Heart rate 60 /min MD eRne Cannon Work Phone: [facility] 01-17-2023 13:05-0400 Respiratory rate 16 /min MD Rene Cannon Work Phone: [facility] 01-17-2023 13:05-0400 SaO2% (BldA) [Mass fraction] 97 % MD Rene Cannon Work Phone: [facility] 01-17-2023 13:05-0400 Systolic blood pressure 123 mm[Hg] MD Rene Cannon Work Phone: [facility] 01-17-2023 07:26-0400 Body height 177.8 cm MD Rene Cannon Work Phone: [facility] 01-17-2023 07:26-0400 Body temperature 98.1 [degF] MD Rene Cannon Work Phone: [facility] 01-17-2023 07:26-0400 Body weight 82 kg MD Rene Cannon Work Phone: [facility] 01-09-2023 09:10-0400 Diastolic blood pressure 92 mm[Hg] Rene Hendersonirlanda Work Phone: [facility] DO Work Phone: 01-09-2023 09:10-0400 Systolic blood pressure 160 mm[Hg] Rene Hendersonyer Work Phone: [facility] DO Work Phone: 01-09-2023 09:09-0400 Body height 176.53 cm Rene Hendersonirlanda Work Phone: [facility] DO Work Phone: 01-09-2023 09:09-0400 Body mass index (BMI) [Ratio] 26.49 kg/m2 Rene Hendersonirlanda Work Phone: [facility] DO Work Phone: 01-09-2023 09:09-0400 Body surface area Derived from formula 1.99 m2 Rene Hendersonirlanda Work Phone: [facility] DO Work Phone: 01-09-2023 09:09-0400 Body weight 82.56 kg Rene Hendersonirlanda Work Phone: [facility] DO Work Phone: 01-09-2023 09:09-0400 Diastolic blood pressure 90 mm[Hg] Rene Hendersonyer Work Phone: [facility] DO Work Phone: 01-09-2023 09:09-0400 Heart rate 70 /min Rene Hendersonyer Work Phone: [facility] DO Work Phone: 01-09-2023 09:09-0400 Systolic blood pressure 152 mm[Hg] Rene Cannon Work Phone: [facility] DO Work Phone: 11-21-2021 14:30-0400 Body height 176.53 cm Deborah Francisco Jsamara Other [facility] Other 11-21-2021 14:30-0400 Body mass index (BMI) [Ratio] 27.36 kg/m2 Deborah Marxsamara Other [facility] Other 11-21-2021 14:30-0400 Body weight 85.28 kg Deborah Francisco Jsamara Other [facility] Other 11-21-2021 14:30-0400 Diastolic blood pressure 79 mm[Hg] Deborah Magallanes Other [facility] Other 11-21-2021 14:30-0400 Systolic blood pressure 136 mm[Hg] Deborah Magallanes Other [facility] Other Encounters Encounter Date Encounter Type Care Provider Facility Start: 10-15-2023 End: 10-15-2023 ambulatory RENE CANNON Not Available Start: 10-13-2023 Encounter for other preprocedural examination RENE CANNON [facility] Start: 10-13-2023 Telephone encounter Tyra jackson APRN.[employer] Work Phone: Pre Anesthesia Comment on above: Recent Hospitalizati on Start: 10-13-2023 End: 10-13-2023 ambulatory RENE CANNON Facility:[facility] Start: 10-13-2023 End: 10-13-2023 Admission to [facility] Rajendra 2 Work Phone: [place] Start: 10-13-2023 End: 10-13-2023 Alcohol abuse prevention Pac 2 Work Phone: Pre Anesthesia Comment on above: Pre-op examination ( Primary Dx); Primary hypertension; Stage 2 chronic kidney disease; Alcoholism (HCC); Gastroesophageal reflux disease without esophagitis; 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 Work Phone: Start: 10-06-2023 End: 10-10-2023 Evaluation and management of inpatient Tyra Suarez Facility:[facility] Start: 10-06-2023 End: 10-10-2023 Evaluation and management of inpatient MD Rene Cannon Work Phone: [facility] [place] [facility] Work Phone: Start: 10-06-2023 Telephone encounter Cleveland chang MD Work Phone: General Surgery Start: 10-02-2023 End: 10-02-2023 ambulatory RENE CANNON Facility:[facility] Start: 10-02-2023 End: 10-02-2023 Patient encounter procedure Cleveland Alberts MD Work Phone: General Surgery Comment on above: Gastric outlet obstr uction (Primary Dx); Primary malignant neuroendocrine tumor of ileum (HCC); Encounter for attention to gastrostomy (HCC); Severe protein-calorie malnutrition (HCC) Start: 10-01-2023 End: 10-01-2023 ambulatory RENE CANNON Facility:[facility] Start: 08-28-2023 End: 09-05-2023 Evaluation and management of inpatient CLEVELAND ALBERTS Facility:[facility] Start: 08-28-2023 End: 08-28-2023 ambulatory RENE CANNON Facility:[facility] Start: 08-15-2023 End: 08-15-2023 ambulatory Imad Asaad Other [facility] Other Start: 08-15-2023 Telephone encounter Imad Asaad [employer] Start: 08-13-2023 Telephone encounter Cleveland chang MD Work Phone: General Surgery Comment on above: FMLA Paperwork Start: 08-08-2023 Preprocedural examination done Cleveland Alberts MD Work Phone: [facility] Work Phone: Start: 08-07-2023 End: 08-17-2023 Evaluation and management of inpatient BOLIVAR DEAL Facility:[facility] Start: 08-07-2023 End: 08-07-2023 ambulatory RENE CANNON Facility:[facility] Start: 08-07-2023 End: 08-07-2023 Patient encounter procedure Cleveland Alberts MD Work Phone: General Surgery Comment on above: Gastric outlet obstr uction (Primary Dx) Start: 08-06-2023 Telephone encounter Cleveland chang MD Work Phone: [...] Evaluation and management of inpatient Rene Cannon Facility:[facility] Start: 07-24-2023 End: 07-26-2023 Evaluation and management of inpatient MD Rene Cannno Work Phone: [facility] [place] [facility] Work Phone: Start: 07-24-2023 End: 07-24-2023 ambulatory RENE CANNON Not Available Start: 07-10-2023 End: 07-10-2023 ambulatory RENE CANNON Not Available Start: 02-22-2023 End: 02-22-2023 ambulatory Chantal Castellanos Other [facility] [employer] Other Start: 02-22-2023 Office outpatient vi sit 15 minutes Chantal Castellanos [facility] Start: 02-06-2023 Office outpatient vi sit 15 minutes Rene Cannon Work Phone: [facility] DO Work Phone: Start: 01-17-2023 ambulatory Arnel Madsen Facilit y:[id number] Start: 01-17-2023 End: 01-17-2023 ambulatory Rene Cannon Facility:[facility] Start: 01-17-2023 End: 01-17-2023 Admission to same day surgery center MD Rene Cannon Work Phone: [facility] [employer] Work Phone: Start: 01-17-2023 End: 01-17-2023 ambulatory MD Rene Cannon Work Phone: [facility] Work Phone: Start: 01-15-2023 End: 01-15-2023 ambulatory Joselito Madsen Facility:[facility] Start: 01-15-2023 End: 01-15-2023 Patient encounter procedure MD Rene Cannon Work Phone: [facility] Work Phone: Start: 01-09-2023 ambulatory Arnel Madsen Facilit y: Start: 12-19-2022 ambulatory Arnel Turner y:[facility] Start: 07-04-2022 ambulatory INOCENCIO JEAN [facility] Start: 01-11-2022 End: 01-11-2022 ambulatory Deborah Magallanes Other [facility] Other Start: 01-11-2022 Telephone encounter Deborah Magallanes [facility] Start: 12-19-2021 End: 12-19-2021 ambulatory Deborah Magallanes Other [facility] Other Start: 12-19-2021 Telephone encounter Deborah Elpidio [facility] Start: 11-21-2021 End: 11-21-2021 ambulatory Deborah Elpidio Other [facility] Other Start: 11-21-2021 Office outpatient ne w 30 minutes Deborah Magallanes [facility] Start: 11-07-2021 End: 11-10-2021 ambulatory DOUGLAS Tom GUTIERREZ [facility] Start: 11-07-2021 End: 11-09-2021 Subsequent hospital visit by physician [facility] Ekg MW EKG Comment on above: Chest pain, unspecif ied type; Syncope, unspecified syncope type Arrived [place] Start: 10-31-2021 End: 11-01-2021 ambulatory DOUGLAS GUTIERREZ Facility:[facility] Start: 09-12-2021 End: 09-13-[address] RENE CANNON Facility:[facility] Start: 09-11-2021 End: 09-12-[address] RENE CANNON Facility:[facility] Start: 09-07-2021 End: 09-07-[address] RENE CANNON Facility:[facility] Procedures Date Procedure Procedure Detail Performing Clinician Start: 10-13-2023 Antibody screen RENE CANNON Comment on above: Order Comment: Specimen Type: BLOOD SPEC IMENOrdering Facility: [facility] Address: [address] [place] [address] Performed By: #### T [id number] ####CC MAIN BLOOD BANKCLIA [id number] [address] OF [place] Start: 10-07-2023 Screening for occult blood in [...] Comment: Specimen Type: BLOOD SPEC IMENOrdering Facility: [facility] Address: [address] [place] [address] Performed By: #### T SCR ####[place] BLOOD BANKIA [id number] [address] Start: 07-25-2023 Esophagogastroduodenoscopy MD Rene rollins [...] Rene Cannon Work Phone: Start: 03-17-2017 Colonoscopy [facility] Ekg Arthroscopy of knee Rene Cannon Work Phone: Cardiac catheterization Olga Cannon Work Phone: Tonsillectomy Rene luis Work Phone: Plan of Treatment Date Care Activity Detail Author Start: 02-16-2033 Urine microalbumin profile DTa P,Tdap,Td Vaccine (2 - Td or Tdap) [facility] Start: 03-17-2027 Screening for malign ant neoplasm of colon [facility] Start: 10-16-2026 Lipid panel Lipid screen [facility] Start: 09-05-2026 [facility]: 08-14-2026 [facility] Start: 08-07-2026 [facility] Start: 10-13-2024 BP Controlled (<130/80) BP Con trolled (<130/80) [facility] Start: 10-02-2024 BP Controlled (<130/80) BP Con trolled (<130/80) [facility] Start: 09-05-2024 Creatinine measurement Serum Creatin ine [facility] Start: 08-07-2024 BP Controlled (<130/80) BP Con trolled (<130/80) [facility] Start: 10-13-2023 End: 01-12-2024 CBC W Auto Differential panel - Blood [facility] Work Phone: Comment on above: Expected: 10/13/2023 , Expires: 01/12/2024 Start: 10-13-2023 End: 01-12-2024 TYPE AND SCREEN,30 DAY [facility] Work Phone: Comment on above: Expected: 10/13/2023 , Expires: 01/12/2024 Start: 10-10-2023 [facility] Start: 10-09-2023 [facility] Start: 10-08-2023 [facility] Start: 10-08-2023 Blood culture for ba cteria, including anaerobic screen Blood Culture [facility] Start: 10-07-2023 Referral to infectio us diseases physician [facility] Start: 10-07-2023 [facility] Start: 10-06-2023 Bacteria identified in Unspecified specimen by Aerobe culture [facility] Start: 10-06-2023 Hospital admission [facility] Start: 10-06-2023 [facility] Start: 10-06-2023 Bacteria identified in Blood by Culture [facility] Start: 10-06-2023 Blood culture for ba cteria, including anaerobic screen Blood Culture [facility] Start: 08-25-2023 Advance Directive Discussion A dvance Directive Discussion [facility] Start: 08-25-2023 Depression Assessment Depression Ass essment [facility] Start: 07-26-2023 [facility] Start: 07-25-2023 Comprehensive metabo lic 2000 panel - Serum or Plasma [facility] Start: 07-25-2023 [facility] Start: 07-24-2023 Blood chemistry [facility] Start: 07-24-[address] [facility] Start: 07-24-2023 End: 07-24-2023 [facility] Start: 07-24-2023 Referral to speech a nd language therapy service [facility] Start: 07-24-2023 Referral to editor magazine [facility] Start: 07-24-2023 Excision of Duodenum , Via Natural or Artificial Opening Endoscopic, Diagnostic Excision of Duodenum, Via Natural or Artificial Opening Endoscopic, Diagnostic [facility] Start: 07-24-2023 Excision of Stomach, Pylorus, Via Natural or Artificial Opening Endoscopic, Diagnostic Excision of Stomach, Pylorus, Via Natural or Artificial Opening Endoscopic, Diagnostic [facility] Start: 07-24-2023 Hospital admission [facility] Start: 07-24-2023 Referral to showroom sales assistant [facility] Start: 04-25-2023 Influenza vaccination Influenz a Vaccine (#1) [facility] Start: 01-17-2023 End: 01-17-2023 [facility] Start: 10-16-2022 Creatinine measurement Creatinine mo [facility] Start: 10-16-2022 Potassium monitoring Potassium monit [facility] Start: 08-25-2022 Advance Directive Discussion A dvance Directive Discussion [facility] Start: 08-25-2022 Depression Assessment Depression Ass essment [facility] Start: 12-04-2021 End: 12-04-2021 Patient encounter procedure 12/04/2021 Office Visit Cardiology Douglas Gutierrez MD [address] [place] [address] 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 Specialist Start: 04-25-2021 Influenza vaccination Flu vaccine (# 1) [facility] Start: 2020 Pneumococcal 65+ yea rs Vaccine (1 of 1 - PPSV23) Pneumococcal 65+ years Vaccine (1 of 1 - PPSV23) [facility] Start: 2020 Pneumococcal Vaccine : 65+ (1 - PCV) Pneumococcal Vaccine: 65+ (1 - PCV) [facility] Start: 2020 Pneumococcal Vaccine : 65+ (1 of 1 - PCV) Pneumococcal Vaccine: 65+ (1 of 1 - PCV) [facility] Start: 2015 RSV Vaccine (1 - 1-d ose 60+ series) RSV Vaccine (1 - 1-dose 60+ series) [facility] Start: 2010 Prostate specific an tigen measurement Prostate Cancer Screening Discussion [facility] Start: 2005 Shingles Vaccine (1 of 2) Arriaga gles Vaccine (1 of 2) [facility] Start: 2005 Shingrix Vaccine (1 of 2) Arriaga grix Vaccine (1 of 2) [facility] Start: 2000 Diabetes Screening Diabetes Screenin g [facility] Start: 2000 Screening for malign ant neoplasm of colon [facility] Start: 1990 Lipid panel Lipid Screening [facility] Start: 1974 DTaP/Tdap/Td vaccine (1 - Tdap) DTaP/Tdap/Td vaccine (1 - Tdap) [facility] Start: 1974 Urine microalbumin profile DTa P,Tdap,Td Vaccine (1 - Tdap) [facility] Start: 1973 Annual PCP Team Lay Out Maker kit Disease Visit Annual PCP Team Chronic Disease Visit [facility] Start: 1973 Hepatitis C screening Hepatitis C Sc reedioni [facility] Start: 1967 Depression Screen Depression Screen [facility] Start: 1960 COVID-19 Vaccine (1) COVID-19 Vaccin e (1) [facility] Start: 01-15-1956 Covid-19 Vaccine (#1) Covid-19 Vacci ne (#1) [facility] Start: 1955 Hepatitis C screening Hepatitis C sc reen [facility] Anion gap measurement [facility] Blood chemistry [facility] End: 11-07-2021 Cardiac event monitor Cardiac event monitor Cardiac Services Routine Chest pain, unspecified type Syncope, unspecified syncope type 1 Occurrences starting 11/07/2021 until 11/07/2021 [facility] Work Phone: Comment on above: 1 Occurrences starti ng 11/07/2021 until 11/07/2021 Dup-scan xtr veins c omplete bilateral study VASCULAR REPORT Imaging Ordered: 11/08/2021 [facility] Comment on above: Ordered: 11/08/2021 Patient Education Ertapenem [facility] Work Phone: Patient referral [facility] Work Phone: End: 11-07-2021 Stress test, myoview Stress test, myoview Cardiac Services Routine Chest pain, unspecified type Syncope, unspecified syncope type 1 Occurrences starting 11/07/2021 until 11/07/2021 [facility] Work Phone: Comment on above: 1 Occurrences starti ng 11/07/2021 until 11/07/2021 [facility] Immunizations Immunization Date Immunization Notes Care Provider Fa cility 02-16-2023 tetanus toxoid, redu clyde diphtheria toxoid, and acellular pertussis vaccine, adsorbed Cleveland Alberts MD Work Phone: [facility] Payers Date Payer Category Payer Self-pay [id number] 2020 Medicare [id number] 2020 Medicare MEDICARE MEDICAR E A [id number] 2020-Present [phone] [address] [place] [address] Medicare [id number] 2017 Unknown 1959 Unknown [id number] 1955 Unknown [id number] 2.16.840.1.812128.3.579.2.593 1955 Unknown [id number] 2.16.840.1.907154.3.579.2.593 1955 Unknown [id number] 2.16.840.1.556893.3.579.2.593 1955 Unknown [id number] 2.16.840.1.139734.3.579.2.593 1955 Unknown [id number] 2.16.840.1.424837.3.579.2.174 1955 Unknown [id number] 2.16.840.1.333121.3.579.2.174 1955 Unknown [id number] 2.16.840.1.837797.3.579.2.174 1955 Unknown [id number] 2.16.840.1.255408.3.579.2.174 1955 Unknown [id number] 2.16.840.1.084223.3.579.2.174 1955 Unknown [id number] 2.16.840.1.598712.3.579.2.174 1955 Unknown [id number] 2.16.840.1.293668.3.579.2.356 1955 Unknown [id number] 2.16.840.1.092794.3.579.2.356 1955 Unknown [id number] 2.16.840.1.860939.3.579.2.356 1955 Unknown [id number] 2.16.840.1.648154.3.579.2.1259 1955 Unknown [id number] 2.16.840.1.839955.3.579.2.1259 1955 Unknown [id number] 2.16.840.1.516800.3.579.2.1259 1955 Unknown [id number] 2.16.840.1.234413.3.579.2.1259 Unknown [id number] 2.16.840.1.341937.3.579.2.531 Unknown [id number] 2.16.840.1.566905.3.579.2.531 Unknown [id number] 2.16.840.1.492650.3.579.2.531 Unknown [id number] 2.16.840.1.322974.3.579.2.531 Social History Date Type Detail Facility Start: 10-23-2021 End: 08-07-2023 Tobacco smoking status GAIS Never smoked tobacco [facility] Start: 10-23-2021 End: 08-07-2023 Tobacco use and exposure Smokeless tobacco non-user [employer] Phone: Start: 10-24-2021 End: 10-13-2023 Alcohol intake Current drinker of alcohol (finding) [employer] Phone: Start: 10-24-2021 End: 08-07-2023 Alcohol intake [employer] Phone: Comment on above: couple beers at [facility] t; Start: 1955 Sex Assigned At Not on file [employer] Phone: Start: 08-07-2023 End: 10-13-2023 Sex Assigned At [facility] Other Start: 1955 Sex Assigned At Male [facility] Tobacco smoking status GAIS Tobacco smoking consumption unknown [facility] Start: 08-07-2023 Alcohol intake Ex-drinker (finding) [facility] National Score (1-100), lower number is lower risk 63 [facility] Start: 10-02-2023 Alcohol Comment a few beers per day [facility] Medical Equipment Procedure Code Equipment Code Equipment Origin al Text Equipment Identifier Dates [id number] Percutane Endoscopic Gastrostomy Set [id number] Start: 08-13-2023 Jejunal Feeding Set 12ff X 66cm [id number] Start: 08-13-2023 Goals Date Patient Goal Desired Activity /State Functional Status Date Assessment Result Facility 10-10-2023 Functional status Patient at Baseline [facility] Work Phone: 07-26-2023 Functional status Patient at Baseline [facility] Work Phone: 07-24-2023 Functional status Patient at Baseline [facility] Work Phone: Mental Status Date Assessment Result Facility 10-10-2023 Cognitive function Cognitive Sta tus Patient at Baseline [facility] Work Phone: 07-26-2023 Cognitive function Cognitive Sta tus Patient at Baseline [facility] Work Phone: 07-24-2023 Cognitive function Cognitive Sta tus Patient at Baseline [facility] Work Phone: Clinical Notes 11-07-2021 to 10-13-2023 Telephone Encounter - Tyra Ceron APRN.[facility] - 10/13/2023 11:54 AM ESTPatient InstructionsTyra Ceron APRN.[facility] - 10/13/2023 11:00 AM EST Note Date & Type Note Facility 10-13-2023 Miscellaneous Notes Formattin g of this note might be different from the original. Aisha Mo, 1955, [id number], is scheduled for Procedure(s) (LRB): RESECTION SMALL INTESTINE AND ANASTOMOSIS LAPAROSCOPIC, ADDITIONAL PROCEDURE (N/A) on 10/29/2023 at [facility]. Update on Mr. Julien following discharge from [facility] for a blood infection (patient states E. Coli). States he has been prescribed Ertapenem, last dose scheduled for 10/26/23. [facility]) Patient initially covered with vancomycin and ceftriaxone [...] the gram-negative's isolated so far. Maintain meropenem. Thank you, Tyra Ceron APRN.[employer] documented in this encounter [facility] 10-13-2023 Instructions Tyra Ceron APRN.[employer] - 10/13/2023 11:16 AM EST PATIENT PREOPERATIVE INSTRUCTIONS Cleveland Alberts MD has scheduled you for your procedure at this surgery center: [facility]: [phone] --[address] [address]. Please check in on the 1st floor at registration desk 6. Please read below carefully for your personalized instructions. Dietary Restrictions: - No solid food after midnight. - You may have 12 ounces of clear liquids (water, clear juices such as apple juice or gatorade, carbonated beverages, clear tea, black coffee, jello) until 2 hours before scheduled arrival at facility. Patient: please double check with surgeon about possible bowel prep Medications: Unless instructed differently below, stay on all of your medications until your surgery. If you start any new medications after today's visit, please contact your surgeon. Pre-Surgery Med Instructions Medication Instructions ertapenem sodium (ERTAPENEM INJECTION) Continue Taking amino acids 5% - electrolytes - calcium in D20W 5 % solp 2,000 mL Continue Taking tamsulosin (FLOMAX) 0.4 mg Continue Taking finasteride (PROSCAR) 5 mg tablet Continue Taking pantoprazole DR (PROTONIX) 40 mg tablet Continue Taking If you take any medications for erectile dysfunction-Cialis (Tadalafil), Levitra, Staxyn (Vardenafil) Viagra (Sildenenafil please do not take these for 48 hours before surgery. If you start any new medications after today's visit, please contact the surgeon's office. Blood Thinning Medications: - Stop NSAIDS (Ibuprofen, Advil, Aleve, Motrin, Celebrex, Mobic, etc.) 7 days before surgery, as directed by your surgeon. - Hold Aspirin 7 days before surgery, as directed by your surgeon. - Stop Vitamin E, ALL multi-vitamins, herbals and dietary supplements 7 days before surgery. - You may take Tylenol (Acetaminophen) or any of your pain medications that do not contain aspirin or NSAIDS as needed. Important Reminders: - If you use CPAP/BIPAP, bring the machine with you to the surgery center. - If you are prescribed inhalers for breathing, continue using them. - Candy, mints, and tobacco products are NOT permitted the morning of surgery. - Hearing aids, dentures and glasses may be worn the morning of surgery. - NO jewelry, body piercings, makeup, hairpins or contacts are to be worn the day of surgery. If you develop symptoms such as a fever, cold, or flu, or have other changes to your health within TWO DAYS of scheduled surgery or the morning of surgery, please contact the surgery center above. Personal Belongings: -Please have photo ID and insurance cards. -If you do not have a copy of advance directives on file with us, please bring a copy with you on the day of surgery. - Leave ALL valuables and money at home or with family members. For Outpatient Procedures: - YOU MUST HAVE A RESPONSIBLE HEAD LOADER TAKE YOU HOME. A PARTNER INTEGRATION PLANNER OR BRICK LOADER CANNOT BE MADE A RESPONSIBLE HEAD LOADER. - We recommend that a responsible person stays with you overnight to take care of you. - You cannot stay in a hotel alone after outpatient surgery. You will not be permitted to have your surgery, if you do not have someone to take care of you. Arrival Time for Surgery: - The Surgery Center or hospital where you are having surgery will call the afternoon before surgery (or Friday for Friday surgery) with a scheduled arrival time. - If you have not heard by 4 pm, please contact the surgery center above. Please be aware that emergency situations arise, which may delay or change your surgical time. If this happens, we will notify you as soon as possible and regret any inconvenience. If you already have an Advance Directive, please fax a copy to [phone] or email to for it to be added to your chart. If you do not have an Advance Directive, you can find the appropriate form and more information at [email or web address]. We recommend that you complete the Advance Directive form found on the website and bring it with you the day of your surgery. It can be witnessed and scanned into your chart that day. documented in this encounter [facility] 10-13-2023 History and physi jazzy note Images from the original note were not included. HISTORY AND PHYSICAL EXAMINATION SERVICE DATE: 10/13/2023 SERVICE TIME: 11:14 AM PRIMARY CARE PHYSICIAN: Rene Cannon MD, MD REASON FOR VISIT: Aisha Julien is a 68 year old male who is scheduled for Procedure(s) (LRB): RESECTION SMALL INTESTINE AND ANASTOMOSIS LAPAROSCOPIC, ADDITIONAL PROCEDURE (N/A) at the request of Dr. Cleveland Alberts for consultation. My final recommendation will be communicated back to the requesting physician by way of shared medical record or letter. 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 Patient denies any chest pain, shortness of breath, palpitations, fever/chills, nausea/vomiting, fatigue, or diarrhea. no pain at today's visit. Recommended for above surgery. PAST MEDICAL HISTORY Diagnosis Date Essential hypertension GERD (gastroesophageal reflux disease) PAST SURGICAL HISTORY Procedure Laterality Date ARTHROSCOPY KNEE DIAGNOSTIC W/WO SYNOVIAL BX SPX Bilateral states x3 COLONOSCOPY DIAGNOSTIC 2021 no polyps EGD DIAGNOSTIC 08/14/2023 PAST SURGICAL HISTORY OF 1965 tonsilectomy FAMILY HISTORY Problem Relation Age of Onset Uterine Cancer Mother other (bile duct cancer) Sister Colon Cancer No Family History SOCIAL HISTORY: Social History Tobacco Use Smoking status: Never Smokeless tobacco: Never Vaping Use Vaping Use: Former Substance Use Topics Alcohol use: Yes Comment: a few beers per day Drug use: Not Currently MEDICATIONS: Prior to Admission medications as of 10/13/23 1114 Medication Sig Last Dose Taking ertapenem sodium (ERTAPENEM INJECTION) Ertapenem Active 1 GM IV Q24H 14 October 09, 2023 12:00am Taking Yes amino acids 5% - electrolytes - calcium in D20W 5 % solp 2,000 mL Inject intravenously every 12 hours. IV Taking Yes tamsulosin (FLOMAX) 0.4 mg Take 0.4 mg by mouth one time only. Taking Yes finasteride (PROSCAR) 5 mg tablet Take 5 mg by mouth every other day. Taking Yes pantoprazole DR (PROTONIX) 40 mg tablet Take 1 tablet by mouth every afternoon. Taking Yes famotidine (PEPCID) 20 mg tablet Take by mouth every 24 hours. Patient not taking: Reported on 10/13/2023 Not Taking No medication comments found. CURRENT ALLERGIES: ALLERGIES No Known Allergies Covid Immunization Dates Overdue - Covid-19 Vaccine (1) Never done No completion, postpone, frequency change, or communication history exists for this topic. REVIEW OF SYSTEMS: PAIN ASSESSMENT: General: No weight loss, malaise or fevers. Neuro: No history of TIA's, stroke, CHIEF MARKETING OFFICER tumor, impaired sensorium, hemiplegia, paraplegia or quadraplegia. No neurological symptoms or problems. Respiratory: No history of current cough or dyspnea, or pneumonia in the past 6 weeks. No history of respiratory/pulmonary symptoms or problems. Cardiovascular: Positive for: HTN, Negative for CAD, Chest Pain, CHF, DVT/PE GI: Positive for GERD, gastrostomy, Negative for Abdominal pain, Difficulty swallowing : CKD 2 Endocrine: No history of diabetes. Has not taken steroids within the past 30 days. No history of endocrinological symptoms or problems. Hematology: No history of bleeding or clotting disorder. Pt is not taking anti-coagulation or platelet medications. No history of hematological symptoms or problems. Oncology: h/o metastatic neuroendocrine tumor Psych: Alcoholism Musculoskeletal: Negative for joint pain or swelling, back pain or muscle pain. Skin: Negative for lesions, rash and itching. Objective PHYSICAL EXAM: VITALS: BP 103/57 Pulse 77 Temp (Src) 98.5 (Temporal) Ht 5' 9.5 (1.77m) Wt 167 lb 1.7 oz (75.8kg) SpO2 100% BMI 24.33 kg/(m^2). General: Alert and oriented, No acute distress Skin: Normal color, no rash, no lesions. HEENT: EOM, pupils equal, round and reactive. Cardiovascular: Normal S1 & S2, no rubs, murmurs or gallops. No JVD. Pulse regular. Lungs: Normal breath sounds, no wheezes or crackles. Abdomen: Soft, non-tender, no rigidity. Extremities: No deformity, no edema or tenderness, no joint swelling or clubbing. Neurological: Normal cognition and motor skills. Pulses: Carotid and radial pulses normal +2. Diagnostic tests reviewed for today's visit: Lab Value Units Date High Low HB 9.8 g/dL 09/02/2023 17.0 13.0 HCT 29.2 % 09/02/2023 51.0 39.0 WBC 5.51 k/uL 09/02/2023 11.00 3.70 PLT 229 k/uL 09/02/2023 400 150 NA 141 mmol/L 09/05/2023 144 136 K 4.4 mmol/L 09/05/2023 5.1 3.7 GLUC 75 mg/dL 09/05/2023 99 74 BUN 25 mg/dL 09/05/2023 24 9 CREAT 0.83 mg/dL 09/05/2023 1.22 0.73 PTSEC 13.7 sec 08/28/2023 13.0 9.7 INR 1.3 no uni* 08/28/2023 1.3 0.9 APTT 32.1 sec 08/28/2023 32.4 23.0 ALT 21 U/L 09/01/2023 54 10 AST 14 U/L 09/01/2023 40 14 TBILI 0.4 mg/dL 09/01/2023 1.3 0.2 TSH No results within date range. Lab Value Units Date High Low HCGQT No results within date range. UHCG No results within date range. HCG, BODY* No results within date range. Lab Value Units Date High Low ABORHD No results within date range. ABSCREEN No results within date range. No results found for: HBA1C Recent Results (from the past 8760 hour(s)) ECG COMPLETE Collection Time: 08/28/23 5:28 PM Result Value Ventricular Rate 86 Atrial Rate 86 P-R Interval 145 QRS Duration 112 QT Interval 364 QTC Calculation (Bazett) 436 Calculated P Rosalie 67 Calculated R Rosalie -11 Calculated T Rosalie 76 Impression Sinus rhythm LAE, consider biatrial enlargement Borderline intraventricular conduction delay Low voltage, extremity leads Abnormal R-wave progression, late transition Consider inferior infarct Borderline ST elevation, anterior leads Abnormal ECG 1729 Confirmed by MD ZULAY, BOLIVAR ([id number]), commercial production editor ANURAG WARD ([id number]) on 08/29/2023 12:45:41 PM Recent Results (from the past 24492 hour(s)) ECHO Collection Time: 08/17/23 1:08 PM Impression CONCLUSIONS: - Technically difficult exam due to Abdominal feeding tube. - Exam indication: Hypotension - The left ventricle is normal in size. There is septal left ventricular hypertrophy. Left ventricular systolic function is normal. EF = 58 5% (2D biplane) Grade I left ventricular diastolic dysfunction. - The right ventricle is normal in size. Right ventricular systolic function is normal. - LEXIE with mild LVOT obstruction (LVOT gradient 25 mmHg with Valsalva). - There is no patent foramen ovale. - The patient has not had a prior CC echocardiographic exam for comparison. * * * Final * * * ADULT CATH 10/20/22 CAROTIDS 11/07/21 Conclusions Summary Mild increase in prox CCA velocity, without spectral broadening, not considered significant. Minimal plaque right CCA. Negative left sided study. Antegrade flow in the vertebrals. Assessment/Plan Primary hypertension Assessment: stable w/out med Last 5 Encounter BP Readings: Date: BP: 10/13/2023 103/57 10/02/2023 127/72 08/28/2023 113/55 08/28/2023 93/53 08/14/2023 102/74 Stage 2 chronic kidney disease Assessment: Stable, asymptomatic BUN Date Value Ref Range Status 09/05/2023 25 (H) 9 - 24 mg/dL Final 09/04/2023 21 9 - 24 mg/dL Final 09/03/2023 21 9 - 24 mg/dL Final Creatinine Date Value Ref Range Status 09/05/2023 0.83 0.73 - 1.22 mg/dL Final 09/04/2023 0.80 0.73 - 1.22 mg/dL Final 09/03/2023 0.84 0.73 - 1.22 mg/dL Final Alcoholism (HCC) Assessment: daily drinker, advised to taper or stop prior to surgery GERD (gastroesophageal reflux disease) Assessment: Managed and stable with current medication. Denies difficulty swallowing or any bleeding. 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 The patient also presented initially with a gastric outlet obstruction and was admitted for nutritional support and workup. METS: Climb a flight of stairs or walk up a hill (5.50 METs) Patient denies any chest pain or undue shortness of breath with the above physical activity. ANESTHESIA FINDINGS: Intubation History: No history of difficult intubation Significant Anesthesia Considerations: None Airway Exam: General: Normal appearance Mallampati Score is CLASS II ULBT: Class II - Lower incisors can bite the upper lip below the daniel line Neck: Normal appearance and function, Distance from hyoid to mentum during neck extension is at least 3 finger breaths Mouth: Normal tongue size and Mouth opening greater than 2 finger breaths Dentition: Caps/crowns Airway History: No abnormal airway history STOP BANG Score: Criteria: Hypertension Age over 50 (68 year old) Male gender Score = 3 PLAN TE sent to surgeon regarding recent hospitalization due to blood infection (10/13/23) CONSULTS: Patient does not require consults for optimization at this time. The Following Tests/Procedures Have Been Initiated: Orders Placed This Encounter CBC with Differential Standing Status: Future Standing Expiration Date: 01/12/2024 Type and Screen, 30 day Order Comments: [facility] Standing Status: Future Standing Expiration Date: 01/12/2024 famotidine (PEPCID) 20 mg tablet Sig: Take by mouth every 24 hours. ertapenem sodium (ERTAPENEM INJECTION) Sig: Ertapenem Active 1 GM IV Q24H 14 14 October 09, 2023 12:00am amino acids 5% - electrolytes - calcium in D20W 5 % solp 2,000 mL Sig: Inject intravenously every 12 hours. IV Planned Anesthetic: Per anesthesia choice Instructions Given to Patient: Instructions located in the after visit summary. Patient given verbal and written preop instructions and voices comprehension and compliance. SIGNATURE: Tyra Ceron APRN.CNP PATIENT NAME: Aisha Julien DATE: October 13, 2023 TIME: 11:14 AM documented in this encounter [facility] 10-09-2023 Progress note Note Date/Time October 09, 2023 11:12am [facility] [address] [place] [address] Infect. Disease Progress Note Signed Patient: Aisha Julien MR#: [id number] : 1955 Acct:[id number] Age/Sex: 68 / M Adm Date: 4 Loc: 3T Room: [address] [place] [address] Type: ADM IN Attending Dr: Cali Patterson [...] 5 Mg Tablet) 5 mg PO QAM [facility] Stop: 10/07/24 08:59 Last Admin: 10/09/23 08:27 Dose: 5 mg Total Parenteral Nutrition 1 bag/ Potassium Acetate 20 meq/Potassium Phosphate 45 mmol/Sodium Chloride 75 meq/ Sodium Acetate 115 meq/ Calcium Gluconate 6 meq/Magnesium Sulfate 18 meq/ Multivitamins/Minerals 10 ml/ Zinc/Copper/Manganese/Selenium 1 ml/ Amino Acids 2,129.5867 mls @ 88.733 mls/hrIV DAILY@1800 [facility]; Protocol Stop: 10/06/24 17:59 Last Admin: 10/08/23 18:37 Dose: 88.7 mls/hr Fat Emulsion Intravenous 250 (ml/ IV Miscellaneous Supplies) 250 mls @ 21 mls/hr IV DAILY@1800 [facility] Stop: 10/06/24 17:59 Last Admin: 10/08/23 18:35 Dose: 21 mls/hr Meropenem (Merrem) 1 gm in 100 mls @ 33 mls/hr IV Q8H [facility] Last Admin: 10/09/23 06:37 Dose: 200 mls/hr Ondansetron HCl (Ondansetron 4 Mg/2 Ml Vial) 4 mg IV-PUSH Q8H PRN PRN Reason: Nausea And Vomiting Stop: 10/05/24 19:15 Pantoprazole Sodium (Pantoprazole 40 Mg Vial) 40 mg IV-PUSH DAILY [facility] Stop: 10/07/24 08:59 Last Admin: 10/09/23 [...] outpatient Documented By: Tyra Suarez MD 10/09/23 1109 Signed By: <Electronically signed by MD Tyra Suarez> 10/09/23 1111 [facility] Work Phone: 1(313) 135-832502-14-2024 Progress note Author Cali Patterson [facility] October 08, 2023 8:47pm Note Date/Time October 08, 2023 12:23pm [facility] [address] [place] [address] Hospitalist Progress Note Signed Patient: Aisha Julien MR#: [id number] : 1955 Acct:[id number] Age/Sex: 68 / M Adm Date: 4 Loc: Room: [address] [place] [address] Type: ADM IN Attending Dr: Cali Patterson [...] 64 18 95/55 L 99 Room Air 02/14/24 11:41 10/08/23 11:41 10/08/23 11:41 10/08/23 11:41 10/08/23 11:41 10/08/23 11:41 Narrative: CONST- alert, in bed, no distress at rest CARD- RRR no abnormal heart tones PULM- dimin without wheeze or rhonchi, RA ABD- S/NT, NABS, thin EXTREM- no edema BLE, calves nontender SKIN- abdominal with N-thc-zaeycyjw with yellow drainage, erythema around insertion site [...] Obstructive Duodenal mass -pending surgery 10/29/23 at [facility] -has been on TPN/ lipids- dietitian consult [...] <Electronically signed by Cali Patterson DO> 10/08/232046 [facility] Work Phone: 1(331) 942-129802-14-2024 Consult note Author Tyra Suarez [facility] October 08, 2023 10:53am Note Date/Time October 08, 2023 10:42am [facility] [address] [place] [address] Infect. Disease Consult Note Signed Patient: Aisha Julien MR#: [id number] : 1955 Acct:[id number] Age/Sex: 68 / M Adm Date: 4 Loc: Room: [address] [place] [address] Type: ADM IN Attending Dr: Cali Patterson [...] tube in through the surgery. CC: Cali Patterson, [facility] Medical History (Updated 10/08/23 @ 10:51 by [...] Mg/0.4 Ml Syringe) 40 mg SUBCUT DAILY@10 [facility] Stop: 10/06/24 09:59 Last Admin: 10/08/23 09:35 Dose: 40 mg Finasteride (Finasteride 5 Mg Tablet) 5 mg PO QAM [facility] Stop: 10/07/24 08:59 Last Admin: 10/08/23 09:34 Dose: 5 mg Vancomycin HCl 1.25 gm/ (Dextrose) 275 mls @ 183.333 mls/hr IV Q24H [facility] Stop: 10/06/24 19:29 Last Admin: 10/07/23 [...] 250 mls @ 21 mls/hr IV DAILY@1800 [facility] Stop: 10/06/24 17:59 Last Admin: 10/07/23 18:12 Dose: 21 mls/hr Meropenem (Merrem) 1 gm in 100 mls @ 33 mls/hr IV Q8H [facility] Last Admin: 10/08/23 07:00 Dose: 200 mls/hr Ondansetron HCl (Ondansetron 4 Mg/2 Ml Vial) 4 mg IV-PUSH Q8H PRN PRN Reason: Nausea And Vomiting Stop: 10/05/24 19:15 Pantoprazole Sodium (Pantoprazole 40 Mg Vial) 40 mg IV-PUSH DAILY [facility] Stop: 10/07/24 08:59 Last Admin: 10/08/23 09:35 [...] each IV ONCE PRN; Protocol PRN Reason: ZZ.Pharmacy Consult Exam Physical Exam Vital Signs: Temp [...] Results Labs 10/08/23 06:30 10/08/23 06:30 Labs: 10/08/23 06:30: Corrected WBC 8.3, Uncorrected WBC Count [...] <Electronically signed by MD Tyra Suarez> 10/08/23 [facility]3 [facility] Work Phone: 1(170) 842-743002-13-2024 Progress note Author Cali Patterson [facility] October 07, 2023 9:35pm Note Date/Time October 07, 2023 11:41am [facility] [address] [place] [address] Hospitalist Progress Note Signed Patient: Aisha Julien MR#: [id number] : 1955 Acct:[id number] Age/Sex: 68 / M Adm Date: 4 Loc: Room: [address] [place] [address] Type: ADM IN Attending Dr: Cali Patterson [...] and planned surgery of duodenal mass at [facility] October 28 Exam Physical Exam Vital Signs: [...] edema BLE, calves nontender SKIN- abdominal with V-wku-gmrpmpxq with yellow drainage, erythema around insertion site [...] Obstructive Duodenal mass -pending surgery 10/29/23 at [facility] -has been on TPN/ lipids- dietitian consult [...] <Electronically signed by Cali Patterson DO> 10/07/23 2210 [facility] Work Phone: 1(261) 236-704302-13-2024 History and physical note Author Cali Patterson [facility] October 06, 2023 10:09pm Note Date/Time October 06, 2023 10:02pm [facility] [address] [place] [address] Hospitalist H&P Signed Patient: Aisha Julien MR#: [id number] : 1955 Acct:[id number] Age/Sex: 68 / M Adm Date: 4 Loc: Room: [address] [place] [address] Type: ADM IN Attending Dr: Cali Patterson DO Copies to: MD Cali Velásquez DO~ HPI DATE OF EXAMINATION: 10/06/23 CHIEF COMPLAINT: [...] the duodenum,he is currently being seen at [facility] for plans for what he described as [...] negative unless noted below or in HPI [facility] Medical History (Updated 10/06/23 @ 22:08 by [...] List clean-up per request of Phys. EHR [facility] Surgical History History of tonsillectomy Problem List clean-up per request of Phys. EHR Cmte H/O: knee surgery scopes bilateral knee x 3 Problem List clean-up per request of Phys. [facility]HR [facility] Family History Father Heart disease History [...] 17:17 Lymph % (Auto) N/A 10/06/23 17:17 Gilmer % (Auto) N/A 10/06/23 17:17 Eos % (Auto) N/A 10/06/23 17:17 Baso % (Auto) N/A 10/06/23 17:17 Nucleat RBC Rel Count N/A 10/06/23 17:17 Neut # (Auto) N/A 10/06/23 17:17 Lymph # (Auto) N/A 10/06/23 17:17 Gilmer # (Auto) N/A 10/06/23 17:17 Eos # [...] pH 5.0 (5.0-9.0) 10/06/23 18:34 Ur Specific Huxford 1.015 (1.001-1.030) 10/06/23 18:34 Urine Protein Negative [...] Plan: ? Currently being worked up at [facility], stable (6) On total parenteral nutrition (TPN): [...] <Electronically signed by Cali Patterson DO> 10/06/232208 [facility] Work Phone: 1(392) 564-755102-12-2024 Miscellaneous Notes* Telephone Encounter - Jessie Zamora RN - 10/06/2023 12:03 PM EST Updated short term disability paperwork was updated and faxed on 10/06/23. Faxed to [facility] and to [facility]. documented in this encounterReg[facility]-2024 NoteHNO ID: [id number] Author: CLEVELAND ALBERTS MD Service: ? Author [...] Neuro: Gait normal. Reflexes (more content not included)...[facility]02-09-2024 History of Present illness Narrative* Cleveland Alberts [...] volume. Abdomen is soft and non distended Tax Collector present: Yes () ASSESSMENT 68 year old [...] Level: 5 - High Cleveland Alberts MD [facility] [place] [facility] / [facility] October 02, 2023 documented in this encounterRegency Hospital [facility]02-07-2024 NoteHNO ID: [id number] Author: CLAUDE FAITH RT(R) Service: ? Author [...] BY: RT Norman(R) October 01, 2023 9:[address] [facility]02-07-2024 NoteHNO ID: [id number] Author: MACY YOO RN Service: ? Author [...] Julien DATE: October 01, 2023 TIME: 8:[address] [facility]01-12-2024 [facility]2023 [facility]01-10-2024 NoteV[facility] Of [facility] MassachusettsBzbcbsbc29-11-1713 Note HNO ID: [id number] Author: MARYAM MEJIA RN Service: Care Management Author Type: Registered Nurse Type: Care Mgt Progress Note Filed: 09/02/2023 13:34 Note Text: cont. with TPN, optimize pt for OR planned FridayVibra Hospital Of Western [id number] [facility]01-08-2024 [facility]01-07-2024 NoteVibra Hospital Of Western MassachusettsVgwmpssq13-27-6994 NoteVibra Hospital Of Western MassachusettsWumcxizq29-77-0790 NoteHNO ID: [id number] Author: LAYNE CARR, LUCILLE Service: ? Author Type: Registered Nurse Type: Nursing Progress Note Filed: 08/29/2023 16:30 Note Text: 1630 paged SROC, is it ok to use picc if so we need an order.[facility] 08-29-2023 [facility]01-05-2024 NoteVibra Hospital Of Western MassachusettsWqqargwk55-13-4909 Note HNO ID: [id number] Author: CLEVELAND ALBERTS MD Service: ? Author [...] refill. Neuro: Gait deangelo (more content not included)...[facility] 08-28-2023 History of Past illness Narrative* Problem Noted Date Diagnosed Date Resolved Date Dehydration 08/28/2023 09/05/2023 documented as of this encounter (statuses as of 10/03/2023) [facility]01-04-2024 History of Past illness Narrative* Problem Noted Date Diagnosed Date Resolved Date Dehydration 08/28/2023 09/05/2023 documented as of this encounter (statuses as of 10/06/2023) [facility]01-04-2024 History of Past illness Narrative* Problem Noted Date Diagnosed Date Resolved Date Dehydration 08/28/2023 09/05/2023 documented as of this encounter (statuses as of 10/07/2023) [facility]01-04-2024 History of Past illness Narrative* Problem Noted Date Diagnosed Date Resolved Date Dehydration 08/28/2023 09/05/2023 Hyperlipidemia 01/28/2023 10/13/2023 10/13/2023 Mild mitral regurgitation 01/28/2023 10/13/2023 Mild tricuspid regurgitation 01/28/2023 10/13/2023 10/13/2023 documented as of this encounter (statuses as of 10/13/2023) [facility]01-04-2024 History of Past illness Narrative* Problem Noted Date Diagnosed Date Resolved Date Dehydration 08/28/2023 09/05/2023 Hyperlipidemia 01/28/2023 10/13/2023 10/13/2023 Mild mitral regurgitation 01/28/2023 10/13/2023 Mild tricuspid regurgitation 01/28/2023 10/13/2023 10/13/2023 documented as of this encounter (statuses as of 10/13/2023) [facility]01-02-2024 NoteHNO ID: [id number] Author: Andreas Ford DO Service: ? Author Type: Fellow Type: Progress Notes Filed: 08/26/2023 12:36 PM Note Text: [facility] Multidisciplinary Bjcnhd-Gkytiozaj-Gehzbxq AND Upper GI Case Conference -- Consensus [...] if able Andreas Ford DO [facility] Surgical FellowMary [facility] Hospital12-24-2023 [facility] 08-17-2023 NoteHNO ID: [id number] Author: Margot Gonzalez RN Service: ? Author Type: Registered Nurse Type: Nursing Progress Note Filed: 08/17/2023 3:34 AM Note Text: 0030 New TF bag hung, TF advanced to 50 ml/hr no c/o gastric upset or nausea.[facility] MassachusettsUsbzyjrn15-22-6214 [facility]12-23-2023 [facility]12-22-2023 [facility]12-22-2023 [facility] 08-14-2023 NoteVibra Hospital Of Western MassachusettsYqgutukt03-76-1806 [facility]12-21-2023 Miscellaneous Notes* Telephone Encounter - Jessie Zamora RN - 08/14/2023 9:12 AM EST Kindra from [employer] returned call yesterday stating that she had [...] 08/13/2023 10:24 AM EST Call made to [employer] [employer] - patient employer to get [facility] paperwork for him. Left a VM with Kindra. Gave her cell number to call back and/or fax number to fax paperwork. documented in this encounterRegency Hospital [facility]12-20-2023 [facility] 08-13-2023 [facility]12-19-2023 [facility]12-18-2023 Note [facility] MassachusettsEparqsrn36-89-4455 NoteVibra Hospital Of Western MassachusettsYoyyarkn42-10-5207 NoteVibra Hospital Of Western MassachusettsQgzqxivw66-58-3433 NotePatrick Ville [address]-14-2023 History and physical note* Cleveland Alberts MD [...] and symmetric. Sensation grossly intact. Abdomen: Negative Tax Collector present: Yes () ASSESSMENT 68-year-old male with [...] Level: 5 - High Cleveland Alberts MD [facility] [place] [facility] August 07, 2023 documented in this encounterRegency Hospital [facility]12-13-2023 Miscellaneous Notes* Telephone Encounter - Pantera Rojas - 08/06/2023 9:07 AM EST Received records from [facility]. Scanned into [employer]. Please review, thank you! documented in this encounterRegency Hospital [facility] East12-12-2023 Miscellaneous Notes* Telephone Encounter - Jessie Zamora RN - 08/05/2023 10:42 AM EST Called patient and spoke with him about coming for a visit with Dr. Alberts. Patient understands he was referred by Dr. Linder. Asked patient to bring any past medical history with him. Patient understanding and thankful for call and appointment. *Requested images to be pushed from [employer] 08/05. Also faxed release of information to patients PCP - Dr. Cannon in [facility]. documented in this encounterRegency Hospital [facility]12-05-2023 Miscellaneous Notes* Telephone Encounter - Vicki Rosario - 07/29/2023 3:36 PM EST New patient referral from Dr. Linder's office ([phone]) to Dr. Alberts for Duodenal Mass. Contacted the office to resend records. Please advise on scheduling documented in this encounterRegency Hospital [facility]12-02-2023 Progress note Author Jose A Calzada [facility] July 26, 2023 11:49am Note Date/Time July 26, 2023 1 1:49am [facility] [address] [place] [address] Nephrology Progress Note Signed Patient: Aisha Julien MR#: [id number] : 1955 Acct:[id number] Age/Sex: 68 / M Adm Date: 3 Loc: Room: [address] [place] [address] Type: ADM IN Attending Dr: Gela Eller [...] (Finasteride 5 Mg Tablet) 5 mg PO [facility] Stop: 07/24/24 08:59 Last Admin: 07/26/23 08:40 Dose: 5 mg Hydralazine HCl (Hydralazine 20 Mg/Ml Vial) 10 mg IV-PUSH Q4H PRN PRN Reason: if SBP > 185 Stop: 07/23/24 16:29 Hydromorphone HCl (Hydromorphone 1 Mg/Ml Syringe) 0.25 mg IV-PUSH Q4H PRN PRN Reason: pain Lactated Ringer's (Lactated Ringers) 1,000 mls @ 75 mls/hr IV .[id number] [facility] Stop: 07/24/24 13:14 Last Admin: 07/26/23 03:54 [...] signed by Jose A Calzada MD> 07/26/23 1140 [facility] Work Phone: 1(257) 603-244012-01-2023 Progress note Author Gela Eller [facility] July 25, 2023 12:59pm Note Date/Time July 25, 2023 1 2:59pm [facility] [address] [place] [address] Hospitalist Progress Note Signed Patient: Aisha Julien MR#: [id number] : 1955 Acct:[id number] Age/Sex: 68 / M Adm Date: 3 Loc: Room: 9U0960-9 Type: ADM IN Attending Dr: Gela Eller [...] <Electronically signed by Gela Eller MD> 07/25/23 0023 [facility] Work Phone: 1(811) 365-687312-01-2023 History and physical note Author Gela Eller [facility] July 25, 2023 12:57pm Note Date/Time July 24, 2023 4:18pm [facility] [address] [place], [place] [address] Hospitalist H&P Signed Patient: Aisha Julien MR#: [id number] : 1955 Acct:[id number] Age/Sex: 68 / M Adm Date: 3 Loc: Room: [address] [place] [address] Type: ADM IN Attending Dr: Gela Eller [...] any coronary artery disease. Ventriculogram showed ejection [id number]% Admission EKG showed normal sinus rhythm without [...] mass, portal vein/SMV thrombosis cannot be excluded. [facility] Medical History (Updated 07/25/23 @ 12:42 by [...] % (Auto) 12.6 % (.) 07/24/23 12:28 Gilmer % (Auto) 10.3 % (.) 07/24/23 12:28 Eos % (Auto) 1.0 % (.) 07/24/23 12:28 Baso % (Auto) 0.5 % (.) 07/24/23 12:28 Nucleat RBC Rel Count 0.2 /100 WBC (0-0.5) 07/24/23 12:28 Neut # (Auto) 5.5 x10E3/uL (1.8-7.7) 07/24/23 12:28 Lymph # (Auto) 0.9 x10E3/uL (1.00-4.8) L 07/24/23 12:28 Gilmer # (Auto) 0.8 x10E3/uL (0.0-0.8) 07/24/23 12:28 [...] pH 5.5 (5.0-9.0) 07/24/23 13:54 Ur Specific Huxford 1.015 (1.001-1.030) 07/24/23 13:54 Urine Protein 30 [...] <Electronically signed by Gela Eller MD> 07/25/[address] [place] [address] Ctr Work Phone: 1(291) 425-834212-01-2023 Consult note Author Jose A Calzada [facility] July 25, 2023 12:45pm Note Date/Time July 25, 2023 1 2:45pm [facility] [address] [place] [address] Nephrology Consult Note Signed Patient: Aisha Julien MR#: [id number] : 1955 Acct:[id number] Age/Sex: 68 / M Adm Date: 3 Loc: Room: [address] [place] [address] Type: ADM IN Attending Dr: Gela Eller MD Copies to: MD Rene Urena MD Ruta Semaskiene, MD~ Providers Consult Date: 07/25/23 Requesting Provider: Gela Eller MD Primary Care Provider: Rene Cannon MD [facility] Reason for Consult: ENEDINA History of [...] 12 system review is negative this morning [facility] Medical History (Updated 07/25/23 @ 12:42 by [...] Appearance Clear Urine pH 5.5 Ur Specific Huxford 1.015 Urine Protein 30 H Urine Glucose (UA) Normal Urine Ketones Trace H Urine Occult Blood Negative Urine Nitrite Negative Ur Leukocyte Esterase Negative Urine RBC 5-9 H Urine WBC 0-1 Urine Bacteria None seen 07/25/23 05:46 BUN 44 H Creatinine 2.86 H D Albumin 3.4 L Urine Color Urine Appearance Urine pH Ur Specific Huxford Urine Protein Urine Glucose (UA) Urine Ketones [...] Santa Jr., D.O.07/24/2023 2:43 PM Dictation Location: [place] [address] Any impression(s) listed above is documentation that [...] signed by Jose A Calzada MD> 07/25/23 4805 [facility] Work Phone: 1(549) 589-989312-01-2023 [facility]30-2023 Consult note Author Nohemy Linder [facility] July 24, 2023 4:38pm Note Date/Time July 24, 2023 4:35pm [facility] [address] [place] [address] Gastroenterology Consult Note Signed Patient: Aisha Julien MR#: [id number] : 1955 Acct:[id number] Age/Sex: 68 / M Adm Date: 3 Loc: Room: [address] [place] [address] Type: ADM IN Attending Dr: Gela Eller [...] negative unless noted below or in HPI [facility] Medical History (Updated 07/24/23 @ 16:37 by [...] % (Auto) 75.6 Lymph % (Auto) 12.6 Gilmer % (Auto) 10.3 Eos % (Auto) 1.0 Baso % (Auto) 0.5 Nucleat RBC Rel Count 0.2 Neut # (Auto) 5.5 Lymph # (Auto) 0.9 L Gilmer # (Auto) 0.8 Eos # (Auto) 0.1 [...] Color Urine Appearance Urine pH Ur Specific Huxford Urine Protein Urine Glucose (UA) Urine Ketones Urine Occult Blood Urine Nitrite Urine Bilirubin Urine Urobilinogen Ur Leukocyte Esterase Urine RBC Urine WBC Ur Squamous Epith Cells Urine Bacteria Hyaline Casts 07/24/23 07/24/23 07/24/23 12:28 12:28 13:54 Corrected WBC Uncorrected WBC Count RBC Hgb Hct MCV MCH MCHC RDW Plt Count MPV Neut % (Auto) Lymph % (Auto) Gilmer % (Auto) Eos % (Auto) Baso % (Auto) Nucleat RBC Rel Count Neut # (Auto) Lymph # (Auto) Gilmer # (Auto) Eos # (Auto) Baso # [...] Appearance Clear Urine pH 5.5 Ur Specific Huxford 1.015 Urine Protein 30 H Urine Glucose [...] <Electronically signed by Nohemy Linder MD> 07/24/231637 [facility] Work Phone: 1(261) 985-370507-01-2023 Evaluation note* Encounter Date Diagnosis Assessment Notes Treatment Notes Treatment Clinical Notes Feb, Visit for suture removal (ICD-10 - Z48.02) sutures removed successfully--see procedural note. wound healed up well. no questions or concerns. follow up with PCP prn. Feb, Laceration of nose, initial encounter (ICD-10 - S01.21XA) lac repair done in [facility] [employer] Component Other 05-26-2023 Discharge summary Author Joselito Madsen [facility] January 17, 2023 10:24am Note Date/Time January 17, 2023 10:22 am [facility] [address] [place] [address] Discharge Summary Signed Patient: Aisha Julien MR#: [id number] : 1955 Acct:[id number] Age/Sex: 67 / M Adm Date: 3 [...] Low-Cholesterol Additional Instructions: DISCHARGE INSTRUCTIONS FOR CARDIAC MOLD TOOLER PHONE NUMBER OF YOUR PHYSICIAN: [phone] PROCEDURE: Heart Cath The following instructions have [...] cold, numb, blue or white, call the parts sales advisor immediately. 4. ACTIVITY: You are advised to [...] bottle, follow the instructions on the bottle. [facility] is not responsible for incorrect prescription [...] [facility] Work Phone: 1(983) 108-666505-26-2023 [facility] Evaluation note* Encounter Date Diagnosis Assessment Notes Treatment Notes Treatment Clinical Notes Oct, Abdominal pain (ICD-10 - R10.9) OBTAIN RECORDS FROM [facility]- UPP[facility] GI OBTAIN COLONOSCOPY AND CT SCAN-[facility] Oct, Gastritis without bleeding, unspecified chronicity, unspecified gastritis type (ICD-10 - K29.70) Oct, GERD (gastroesophageal reflux disease) (ICD-10 - K21.9) STOP FAMOTIDINE [facility] Other 03-16-2022 History of Present illness Narrative* Caity Hamilton RCP - 11/07/2021 12:30 PM EDT The patient was educated on the use of an event monitor. The patient's comprehension was high. The patient was able to verbalize recall. The patient was instructed on how and when to return the monitor. documented in this [facility] Phone: 1(890) 138-866303-16-2022 Note [facility] Vascular Carotid Procedure Patient Name MARY BETH LEONARD Date of Study 11/07/2021 L Date of 1955 Gender Male Age 66 year(s) Race Room Number Corporate ID [id number] # Patient Acct [id number] # MR # [id number] Company Controller Jocelyn Mcghee, Interpreting Estephania Pichardo Physician Referring Referring Physician RENE CANNON, Nurse VERNA* Practitioner ELA RIDDLE * Procedure Type of Study: Cerebral: Carotid, Carotid Scan Bilateral. Indications for Study:Bruit, carotid. Patient Status:Routine. Conclusions Summary Mild increase in prox CCA velocity, without spectral broadening, not considered significant. Minimal plaque right CCA. Negative left sided study. Antegrade flow in the vertebrals. Signature Electronically signed by DAHLIA Magaña (R M))([facility])(Company Controller) on 11/07/2021 11:33 AM Findings: Right Impression: [...] !Mid ICA !87.54 !27.97 (more content not included)...[facility] CPACSE[facility]* Diagnosis Chest pain, unspecified type Syncope, unspecified syncope type documented in this encounter [employer] Phone: evaluation note* Diagnosis Bruit Other symptoms involving cardiovascular system documented in this encounter [employer] Phone: evaluation noteNo InformationNort [facility] [employer] Other Evaluation noteNo assessment information available [facility] Work Phone: Evaluation note* Diagnosis Onset Date Resolution Status Acute renal failure acute Epigastric pain acute Hypokalemia acute Hypotension acute Small bowel mass acute Unintentional weight loss ac [facility] Work Phone: Evaluation note* Diagnosis Onset Date Resolution Status Acute renal failure acute Duodenal mass acute Epigastric pain acute Hypokalemia acute Hypotension acute Small bowel mass acute Unintentional weight loss ac [facility] Work Phone: Evaluation note* Diagnosis Gastric outlet obstruction- Primary Acquired hypertrophic pyloric stenosis [facility] Diagnosis Gastric outlet obstruction- Primary 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) Encounter for attention to gastrostomy (HCC) Attention to gastrostomy Severe protein-calorie malnutrition (HCC) Other severe protein-calorie malnutrition documented [facility] this encounter [facility] Diagnosis Onset Date Resolution Status Hypokalemia acute Hypotension acute Leukocytosis acute On total parenteral nutrition (TPN) acute Skin infection at gastrostomy tube site [facility] Work Phone: Evaluation note* Diagnosis Onset Date Resolution Status Duodenal mass acute Duodenal mass acute Gram-negative bacteremia acu te Hypokalemia acute Hypotension acute Leukocytosis acute On total parenteral nutrition (TPN) acute Skin infection at gastrostomy tube site [facility] Work Phone: Evaluation note* Diagnosis Pre-op examination- Primary Preoperative examination, unspecified Primary hypertension Unspecified essential hypertension Stage 2 chronic kidney disease Alcoholism (HCC) Other and unspecified alcohol dependence, unspecified drinking behavior Gastroesophageal reflux disease without esophagitis Esophageal reflux 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) Gastric outlet obstruction Acquired hypertrophic pyloric stenosis documented [facility] this encounter [facility] note Author Cali Patterson [facility] October 06, 2023 10:09pm Note Date/Time October 06, 2023 10:02pm [facility] [address] [place] [address] Hospitalist H&P Signed Patient: Aisha Julien MR#: [id number] : 1955 Acct:[id number] Age/Sex: 68 / M Adm Date: 4 Loc: Room: [address] [place] [address] Type: ADM IN Attending Dr: Cali Patterson DO Copies to: MD Cali Velásquez DO~ HPI DATE OF EXAMINATION: 10/06/23 CHIEF COMPLAINT: [...] the duodenum,he is currently being seen at [facility] for plans for what he described as [...] negative unless noted below or in HPI [facility] Medical History (Updated 10/06/23 @ 22:08 by [...] Problem List clean[facility]: knee surgery scopes bilateral knee x 3 Problem List clean-up per request of [facility] Family History Father Heart disease History of [...] 17:17 Lymph % (Auto) N/A 10/06/23 17:17 Gilmer % (Auto) N/A 10/06/23 17:17 Eos % (Auto) N/A 10/06/23 17:17 Baso % (Auto) N/A 10/06/23 17:17 Nucleat RBC Rel Count N/A 10/06/23 17:17 Neut # (Auto) N/A 10/06/23 17:17 Lymph # (Auto) N/A 10/06/23 17:17 Gilmer # (Auto) N/A 10/06/23 17:17 Eos # [...] pH 5.0 (5.0-9.0) 10/06/23 18:34 Ur Specific [place] 1.015 (1.001-1.030) 10/06/23 18:34 Urine Protein Negative [...] Plan: ? Currently being worked up at [facility], stable (6) On total parenteral nutrition (TPN): [...] <Electronically signed by Cali Patterson DO> 10/06/232208 [facility] Work Phone: History general Narrative - Reported* Type Description Date Medical History HTN Medical History GERD Surgical History knee arthroscopy BILATEAL-3 RAMSES ES EACH [facility] Other History general Narrative - Reported* Type Description Date Medical History HTN Medical History GERD Surgical History knee arthroscopy BILATEAL-3 RAMSES ES EACH Hospitalization History DEHYDRATION [facility] Other Hospital Discharge instructions Additional Instructions DISCHARGE INSTRUCTIONS FOR CARDIAC MOLD TOOLER PHONE NUMBER OF YOUR PHYSICIAN: [phone] PROCEDURE: Heart Cath The following instructions have [...] cold, numb, blue or white, call the parts sales advisor immediately. 4. ACTIVITY: You are advised to [...] bottle, follow the instructions on the bottle. [facility] is not responsible for incorrect prescription information provided by the patient during their visit. Do not stop your medications without consulting your health care provider. Please take the list with you to your next doctor's appointment.[facility] Work Phone: Hospital Discharge instructions Additional Instructions You will need to follow[facility] physician Dr. Bety Amin for further evaluation of your duodenal mass. Dr. Tadeo's office will arrange appointment and we will give you a call[facility] Work Phone: Progress note Author Gela Eller [facility] July 26, 2023 2:50pm Note Date/Time July 26, 2023 2 :50pm [facility] [address] [place] [address] Hospitalist Progress Note Signed Patient: Aisha Julien MR#: [id number] : 1955 Acct:[id number] Age/Sex: 68 / M Adm Date: 3 Loc: Room: [address] [place] [address] Type: ADM IN Attending Dr: Gela Eller [...] Lactated Ringers IV 07/24/24 13:14 75 mls/hr .[id number] NOMI Administration Sodium Chloride 1,000 mls @ [...] external mass effect/compression I did discuss with editor magazine, his office will arrange follow-up with gastroenterology [...] signed by Gela Eller MD> 07/26/23 1450 [facility] Work Phone: Summary Purpose Family [...] Unknown sister Malignant neoplasm Unknown Advance Directives No Advanced Directives Records Found Advance Directive Response Recorded Date/ Time Advance Directives No June 04, 2021 10:29am Advance Directive Response Recorded Date/ Time Advance Directives No June 04, 2021 9:29am Reason for Referral Specialty Diagnoses / Procedures Referred By Contac t Referred To Contact Diagnoses Chest pain, unspecified type Syncope, unspecified syncope type Procedures Cardiac event monitor Douglas Gutierrez MD [address] [place] [id number] Referral ID Status Reason Start Date Expiration Date Visits Re quested Visits Authorized [id number] Closed 10/25/2021 10/25/2022 1 1 Specialty Diagnoses / Procedures Referred By Contac t Referred To Contact Cardiology Diagnoses Chest pain, unspecified type Syncope, unspecified syncope type R07.9 (ICD-10-CM) - Chest pain, unspecified type Procedures Stress test, myoview CHG MYOCARDIAL SPECT MULTIPLE STUDIES 88168 - CHG MYOCARDIAL SPECT MULTIPLE STUDIES Douglas Gutierrez MD [address] [place] [address] [address] Referral ID Status Reason Start Date Expiration Date Visits Re quested Visits Authorized [id number] Closed 10/25/2021 10/25/2022 4 4 Specialty Diagnoses / Procedures Referred By Contac t Referred To Contact Vascular Lab Diagnoses Bruit R09.89 (ICD-10-CM) - Bruit Procedures VL DUP CAROTID BILATERAL MI DUPLEX SCAN EXTRACRANIAL,BILAT [id number] - MI DUPLEX SCAN EXTRACRANIAL,BILAT Douglas Gutierrez MD [address] [place] [id number] Referral ID Status Reason Start Date Expiration Date V isits Requested Visits Authorized [id number] Pending Review 10/25/2021 10/25/2022 1 1 Chief [...] section and content) DATE CREATED AUTHOR 10/17/2021 [facility] dical Specialist DATE CREATED AUTHOR AUTHOR'S ORGANIZ ATION 11/04/2021 [facility] DATE CREATED AUTHOR AUTHOR'S ORGANIZ ATION 12/15/2021 Vania farooq DATE CREATED AUTHOR AUTHOR'S ORGANIZ ATION 07/05/2022 [facility] DATE CREATED AUTHOR AUTHOR'S ORGANIZ ATION 02/03/2023 [facility] DATE CREATED AUTHOR AUTHOR'S ORGANIZ ATION 09/08/2023 [facility] DATE CREATED AUTHOR AUTHOR'S ORGANIZ ATION 10/14/2023 [facility] DATE CREATED AUTHOR AUTHOR'S ORGANIZ ATION 10/15/2023 [facility] DATE CREATED AUTHOR AUTHOR'S ORGANIZ ATION 10/22/2023 [facility] dical Specialists [facility] Reason for Visit (unrecogniz ed section and content) Specialty Diagnoses / Procedures Referred By Contac t Referred To Contact Diagnoses Chest pain, unspecified type Syncope, unspecified syncope type Procedures Cardiac event monitor Douglas Gutierrez MD [address] [place] [address] Referral ID Status Reason Start Date Expiration Date Visits Re quested Visits Authorized [id number] Closed 10/25/2021 10/25/2022 1 1 Specialty Diagnoses / Procedures Referred By Contac t Referred To Contact Cardiology Diagnoses Chest pain, unspecified type Syncope, unspecified syncope type R07.9 (ICD-10-CM) - Chest pain, unspecified type Procedures Stress test, myoview CHG MYOCARDIAL SPECT MULTIPLE STUDIES [id number] - CHG MYOCARDIAL SPECT MULTIPLE STUDIES Douglas Gutierrez MD [address] [place] [address] [facility] [address] [place] [address] Referral ID Status Reason Start Date Expiration Date Visits Re quested Visits Authorized [id number] Closed 10/25/2021 10/25/2022 4 4 Specialty Diagnoses / Procedures Referred By Contac t Referred To Contact Vascular Lab Diagnoses Bruit R09.89 (ICD-10-CM) - Bruit Procedures VL DUP CAROTID BILATERAL MI DUPLEX SCAN EXTRACRANIAL,BILAT [id number] - MI DUPLEX SCAN EXTRACRANIAL,BILAT Douglas Gutierrez MD [address] [place] [address] Referral ID Status Reason Start Date Expiration Date V isits Requested Visits Authorized [id number] Pending Review 10/25/2021 10/25/2022 1 1 Reason Comments Appointment Reason Comments New Patient Evaluation Reason Comments FMLA Paperwork Reason Comments Follow Up Gastric outlet obstr uction Reason Comments Received Outside Medical Records Reason Comments Recent Hospitalization Care Teams (unrecognized sec tion and content) [...] Active Nohemy Linder MD Other Provider Active Furnace Caretaker Relationship Specialty Start Date End Date Rene Cannon MD [address] [place] [address] PCP - General 10/17/21 Furnace Caretaker Relationship Specialty Start Date End Date Rene Cannon MD [address] [place] [id number] PCP - General 10/17/21 Furnace Caretaker Relationship Specialty Start Date End Date Rene Cannon MD [address] [place] [id number] PCP - General 10/17/21 Furnace Caretaker Relationship Specialty Start Date End Date Rene Cannon MD [address] [place] [id number] PCP - General 10/17/21 Furnace Caretaker Relationship Specialty Start Date End Date Rene Cannon MD [address] [place] [id number] PCP - General 10/17/21 Team Status: Inactive Member Role Status Dates Rene Cannon MD Primary Care Provider Active Joselito Madsen DO Attending Provider Active Furnace Caretaker Relationship Specialty Start Date End Date Rene Cannon MD [address] [place] [address] (Fax) PCP - General Family Medicine 08/05/23 Furnace Caretaker Relationship Specialty Start Date End Date Rene Cannon MD [address] [place] [address] (Fax) PCP - General Family Medicine 08/05/23 Furnace Caretaker Relationship Specialty Start Date End Date Rene Cannon MD [address] [place] [address] (Fax) PCP - General Family Medicine 08/05/23 Furnace Caretaker Relationship Specialty Start Date End Date Rene Cannon MD [address] [place] [address] (Fax) PCP - General Family Medicine 08/05/23 Furnace Caretaker Relationship Specialty Start Date End Date Rene Cannon MD [address] [place] [address] (Fax) PCP - General Family Medicine 08/05/23 Furnace Caretaker Relationship Specialty Start Date End Date Rene Cannon MD [address] [place] [address] (Fax) PCP - General Family Medicine 08/05/23 Team Status: Inactive Member Role Status [...] Calzada MD Other Provider Active Start: N ovember 2022 End: July 26, 2023 Nohemy Linder MD Other Provider Active Start: Nov 2022 End: July 26, 2023 Team Status: Active [...] Other Provider Active Start: October 06, 2023 Furnace Caretaker Relationship Specialty Start Date End Date Rene Cannon MD [address] [place] [address] PCP - General Family Medicine 08/05/23 Team Status: Inactive Member Role Status [...] Other Provider Active Start: October 08, 2023 Furnace Caretaker Relationship Specialty Start Date End Date Rene Cannon MD [address] [place] [address] (Fax) PCP - General Family Medicine 08/05/23 Furnace Caretaker Relationship Specialty Start Date End Date Rene Cannon MD [address] [place] [address] (Fax) PCP - General Family Medicine 08/05/23 Source Comments (unrecognize d section and content) In the event this informatio n is protected by the Federal Confidentiality of Alcohol and Drug Abuse Patient Records regulations: The Federal rules restrict any use of the information to criminally investigate or prosecute any alcohol or drug abuse patient.[facility] the event this information is protected by the Federal Confidentiality of Alcohol and Drug Abuse Patient Records regulations: The Federal rules restrict any use of the information to criminally investigate or prosecute any alcohol or drug abuse patient.[facility] the event this information is protected by the Federal Confidentiality of Alcohol and Drug Abuse Patient Records regulations: The Federal rules restrict any use of the information to criminally investigate or prosecute any alcohol or drug abuse patient.[facility] the event this information is protected by the Federal Confidentiality of Alcohol and Drug Abuse Patient Records regulations: The Federal rules restrict any use of the information to criminally investigate or prosecute any alcohol or drug abuse patient.[facility] the event this information is protected by the Federal Confidentiality of Alcohol and Drug Abuse Patient Records regulations: The Federal rules restrict any use of the information to criminally investigate or prosecute any alcohol or drug abuse patient.[facility] the event this information is protected by the Federal Confidentiality of Alcohol and Drug Abuse Patient Records regulations: The Federal rules restrict any use of the information to criminally investigate or prosecute any alcohol or drug abuse patient.[facility] the event this information is protected by the Federal Confidentiality of Alcohol and Drug Abuse Patient Records regulations: The Federal rules restrict any use of the information to criminally investigate or prosecute any alcohol or drug abuse patient.[facility] the event this information is protected by the Federal Confidentiality of Alcohol and Drug Abuse Patient Records regulations: The Federal rules restrict any use of the information to criminally investigate or prosecute any alcohol or drug abuse patient.[facility] the event this information is protected by the Federal Confidentiality of Alcohol and Drug Abuse Patient Records regulations: The Federal rules restrict any use of the information to criminally investigate or prosecute any alcohol or drug abuse patient.[facility] the event this information is protected by the Federal Confidentiality of Alcohol and Drug Abuse Patient Records regulations: The Federal rules restrict any use of the information to criminally investigate or prosecute any alcohol or drug abuse patient.[facility] FOR RECORDS PERTAINING TO PATIENTS WHO ARE [...] BE BASED ON THE PRIMARY CLINICAL RECORDS. [employer] [facility]. provides no warranty or guarantee of the accuracy or completeness of information in this document.
[2023-10-27 12:49] LABS: Basophils Percent Auto 0.7 % (0.2-2.0); Eosinophils Absolute Auto 0.1 10^3/uL (0.0-0.7); Eosinophils Percent Auto 2.2 % (0.9-7.0); Hematocrit 33.3 % (42.0-54.0); Hemoglobin 10.6 g/dL (14.0-18.0); Immature Granulocytes Abs Auto 0.02 10^3/uL (0.00-0.03); Immature Granulocytes Pct Auto 0.3 % (0.0-0.5); Lymphocytes Percent Auto 17.5 % (20.5-60.0); Mean Corpuscular HGB Conc 31.8 g/dL (29.9-35.2); Mean Corpuscular Hemoglobin 28.7 pg (25.9-34.0); Mean Corpuscular Volume 90.2 fL (80.0-94.0); Mean Platelet Volume 12.9 fL (9.5-13.5); Monocytes Absolute Auto 0.6 10^3/uL (0.3-0.8); Monocytes Percent Auto 10.2 % (1.7-12.0); Neutrophils Absolute Auto 4.1 10^3/uL (1.4-6.5); Neutrophils Percent Auto 69.1 % (43.0-75.0); Platelet Count 245 10^3/uL (150-450); Red Blood Count 3.69 10^6/uL (4.70-6.10); Red Cell Distribution Width 13.5 % (11.0-15.0); White Blood Count 5.9 10^3/uL (4.0-11.0)
[2023-10-27 12:51] LABS: Alanine Aminotransferase 22 U/L (16-63); Albumin Globulin Ratio 0.7; Albumin Level 2.8 g/dL (3.4-5.0); Alkaline Phosphatase 215 U/L (46-116); Anion Gap 11.8; Aspartate Amino Transferase 21 U/L (15-37); BUN Creatinine Ratio 31.4; Bilirubin Total 0.5 mg/dL (0.2-1.0); Calcium 8.6 mg/dL (8.5-10.1); Carbon Dioxide 31.6 mmol/L (21.0-32.0); Chloride 100 mmol/L (98-107); Estimated GFR (African America >60 (>=60); Estimated GFR (Non-African Ame >60 (>=60); Globulin 4.3 g/dL; Glucose 90 mg/dL (74-106); Magnesium 2.1 mg/dL (1.8-2.4); Phosphorus 4.4 mg/dL (2.6-4.7); Potassium 3.4 mmol/L (3.5-5.1); Sodium 140 mmol/L (136-145); Total Protein 7.1 g/dL (6.4-8.2); Triglycerides 49 mg/dL (<=150)
== END 2023-10-27 12:19 | disposition home or self-care (01) ==
LOC: LAB 12:18
DX: R53.83 Other fatigue (principal); I10 Essential (primary) hypertension
CPT/HCPCS: 36415; 80053; 83735; 84100; 84478; 85025

== ENCOUNTER 2025-02-22 21:31 | Emergency (ER) | payer MEDICARE, OTHER, SELFPAY ==
--- OUTSIDE RECORDS SUMMARY | 2025-02-10 10:00 | XMS_ITS | Encounter Summary ---
Author Organization [facility] Address [address] [place] [address] Care Team Providers Care Store Stock Help Name Role Phone Rene Pandey MD Primary Care Provider Ra Silveira MD Unavailable [phone] Itzel Singh APRN.ASSOCIATE JUSTICE Unavailable Source Comments In the event this information is protected by the Federal Confidentiality of Alcohol and Drug AbusePatient Records regulations: The Federal rules restrict any use of the information to criminally investigate or prosecute any alcohol or drug abuse patient.[facility] Reason for Visit * Loris Prior Authorization (Routine) - Authorized Specialty Diagnoses / Procedures Referred By Contac t Referred To Contact Diagnoses 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) Procedures OCTREOTIDE INJECTION, DEPOT Ra Silveira MD [address] [place] [address] [place] [address] Phone: tel: fax: Hematology/Oncology [address] [place] [address] [place] [address] Phone: tel: fax: Referral ID Status Reason Start Date Expiration Date Visits Requested Visits Authorized [id number] Authorized Patient Cleared - Admin/Chairm an/Director advise to proceed or did not respond 11/18/2023 08/24/2025 99 99 Encounter Details Date Type Department Care Team (Latest Contact Info) Description 02/10/2025 10:00 AM EDT [facility] Hematology/Oncology [address] [place] [address] [place] [address] 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 No 11/02/2024 Overall Financial Resource Strain (CARDIA) Answe r Date Recorded How hard is it for you to pa y for the very basics like food, housing, medical care, and heating? Not hard at all 10/31/2023 PHQ-2 Answer Date Recorded PHQ-2 score 0 11/17/2024 Hunger Vital Sign Answer Date Recorded Within the past 12 months, y ou worried that your food would run out before you got the money to buy more. Never true 11/03/19 25 Within the past 12 months, t he food you bought just didn't last and you didn't have money to get more. Never true 11/02/2024 PRAPARE - Transportation Answer Date Re corded In the past 12 months, has l ack of transportation kept you from medical appointments or from getting medications? No 10/23 In the past 12 months, has l ack of transportation kept you from meetings, work, or from getting things needed for daily living? No 11/02/2024 Housing Stability Vital Sign Answer [place] Recorded In the last 12 months, was t here a time when you were not able to pay the mortgage or rent on time? No 10/31/2023 In the last 12 months, how many places have you lived? 1 10/31/2023 In the last 12 months, was t here a time when you did not have a steady place to sleep or slept in a custodial (including now)? No 10/31/2023 Housing Stability Vital Sign Answer [place] Recorded In the last 12 months, was t here a time when you were not able to pay the mortgage or rent on time? No 11/02/2024 In the past 12 months, how m any times have you moved where you were living? 0 11/02/2024 At any time in the past 12 m [facility], were you homeless or living in a custodial (including now)? No 11/02/2024 Area Deprivation Index Answer Date Clarence rded National Score (1-100), lower number is lower ri sk 63 08/07/2023 State Score (1-10), lower number is lower risk 4 08/07/2023 Data from: https://www.neighborhoodatlas.medicine.[facility].edu/. Last address used for calculation [address] [facility] [address] 08/07/2023 Sex and Gender Information Value Date Recorded Sex Assigned at Male 11/16/2023 7:12 PM EDT Legal Sex Male 3:01 PM EST Gender Identity Male 11/16/2023 7:12 PM EDT Sexual Orientation Straight 11/16/2023 7: 12 PM EDT documented as of this encounter Last Filed Vital Signs Vital Sign Reading Time Taken Comments Blood Pressure 145/69 02/10/2025 10:12 AM EDT Pulse 75 02/10/2025 10:12 AM EDT Temperature - - Respiratory Rate 18 02/10/2025 10:12 AM EDT Oxygen Saturation 99% 02/10/2025 10:12 AM EDT Inhaled Oxygen Concentration - - Weight - - Height - - Body Mass Index - - documented in this encounter Functional Status * Are you deaf or do you have serious difficulty hearing? Answer Date of Assessment Author No 11/03/2024 3:16 PM EDT Jillian De La Torre RN * Are you blind or do you have serious difficulty seeing, even when wearing glasses? Answer Date of Assessment Author No 11/03/2024 3:16 PM EDT Jillian De La Torre RN * Do you have serious difficulty walking or climbing stairs? Answer Date of Assessment Author No 11/03/2024 3:16 PM EDT Galat, La uren, RN * Do you have difficulty dressing or bathing? Answer Date of Assessment Author No 11/03/2024 3:16 PM EDT Jillian De La Torre RN * Because of a physical, mental, or emotional condition, do you have difficulty doing errands alone such as visiting a doctor's office or shopping? Answer Date of Assessment Author No 11/03/2024 3:16 PM EDT Jillian De La Torre RN documented as of this encounter Mental Status * Because of a physical, mental, or emotional condition, do you have serious difficulty concentrating, remembering, or making decisions? Answer Entry Date Author No 11/03/2024 3:16 PM EDT Jillian De La Torre RN documented in this encounter Plan of Treatment Upcoming Encounters Date Type Department Care Team (Latest Contact Info) Description 03/09/2025 8:00 AM EDT Appointment Molecular Imaging [address] [place] [address] DOTATATE PET PT 9303/09/2025 9:00 AM EDT Appointment Molecular Imaging [address] [place] [id number] DOTATATE PET PT 0094 03/10/2025 12:45 PM EDT Office Visit [facility] [address] [place] [address] [place] [address] LAB AND SANDOSTATIN needs this date due to PET scan on 03/0903/10/2025 1:00 PM EDT Visit (SP) Office Hematology/Oncology [address] [facility] [place] [address] Ra Silveira MD [address] [place] [address] [place] [address] LAB AND SANDOSTATIN needs this date due to PET scan on 03/0903/10/2025 1:30 PM EDT [facility] Hematology/Oncology [address] [facility] [place] [address] LAB AND SANDOSTATIN needs this date due to PET scan on 03/09 documented as of this encounter Visit Diagnoses Diagnosis 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 neuroendocrine tumor of other sites documented in this encounter Administered Medications Inactive Administered Medications - up to 3 most recent administrations Medication Order MAR Action Action Date Dose Rate Site octreotide LAR 20 mg depot (monthly) injection (SandoSTATIN LAR) 20 mg, INTRAMUSCULAR, ONCE, 1 dose, On Susan 02/10/25 at 1000, REFRIGERATE - PROTECT FROM LIGHTIndications: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
[2025-02-22] VITALS (15 sets, daily range): BP systolic 79–106; BP diastolic 49–66; PULSE 88–126; O2SAT 95–98; BMI 24.4
--- NOTE | 2025-02-22 21:33 | ECG_ITS ---
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 Measurements Intervals [place] Rate: 128 P: 90 MO: 156 QRS: 234 QRSD: 94 T: 39 QT: 300 QTc: 376 Interpretive Statements 1120 Sinus tachycardia 7100 Abnormal right axis deviation 7400 S1-S2-S3 pattern, consistent with pulmonary disease, RVH, or normal variant 9140 abnormal rhythm ECG No previous ECG available for comparison Electronically Signed On 02-23-2025 6:44:57 EDT by DEVANG HUDDLESTON M.D.
--- OUTSIDE RECORDS SUMMARY | 2025-02-22 21:45 | XMS_ITS | Encounter Summary ---
Author Organization [facility] Address [address] [place] [address] Care Team Providers Care Swatcher Name Role Phone Rene Pandey MD Unavailable [phone] Rene Pandey MD Primary Care Provider [phone] Rene Pandey MD Unavailable [phone] Ra Silveira MD Unavailable [phone] Jean Madsen MD Unavailable [phone] Encounter Details Date Type Department Care Team (Late st Contact Info) Description 11/02/2023 Clinisync Result Encounter [facility] External Department Unsolicited Provider, Generic External Data Social History Tobacco Use Types Packs/Day Years Used Date Smoking Tobacco: Never Smokeless Tobacco: Never Alcohol Use Standard Drinks/Week Comments Yes 56 (1 standard drink = 0.6 oz pure alcohol) Caffeine intake : 1-2 cups perday Social Connection and Isolat ion Panel [NHANES] Answer Date Recorded In a typical week, how many times do you talk on the phone with family, friends, or neighbors? Once a week 10/14/2023 How often do you get togethe r with friends or relatives? More than three times a week 10/14/2023 How often do you attend chur ch or quaker services? 1 to 4 times per year 10/14/2023 Do you belong to any clubs o r organizations such as mormonism groups, unions, fraternal or athletic groups, or school groups? Yes 10/14/2023 How often do you attend meet ings of the clubs or organizations you belong to? Never 10/14/2023 Are you , , di vorced, , never , or living with a partner? 10/14/2023 AUDIT-C Answer Date Recorded Q1: How often do you have a drink containing alcohol? 4 or more times a week 10/14/2023 Q2: How many drinks containi ng alcohol do you have on a typical day when you are drinking? 5 or 6 Q3: How often do you have si x or more drinks on one occasion? Weekly 10/14/2023 Overall Financial Resource Strain (CARDIA) Answe r Date Recorded How hard is it for you to pa y for the very basics like food, housing, medical care, and heating? Not very hard 10/14/2023 PHQ-2 Answer Date Recorded Patient Health Questionnaire-2 Score 0 01/29/2023 [facility] - Occupational Stress Questionnaire Answer Date Recorded Do you feel stress - tense, restless, nervous, or anxious, or unable to sleep at night because your mind is troubled all the time - these days? To some extent 10/14/2023 Exercise Vital Sign Answer Date Recorde d On average, how many days pe r week do you engage in moderate to strenuous exercise (like a brisk walk)? 0 days 10/14/2023 On average, how many minutes do you engage in exercise at this level? 0 min 10/14/2023 Hunger Vital Sign Answer Date Recorded Within the past 12 months, y ou worried that your food would run out before you got the money to buy more. Never true 10/14/19 24 Within the past 12 months, t he food you bought just didn't last and you didn't have money to get more. Never true 10/14/2023 PRAPARE - Transportation Answer Date Re corded In the past 12 months, has l ack of transportation kept you from medical appointments or from getting medications? No 09/26 In the past 12 months, has l ack of transportation kept you from meetings, work, or from getting things needed for daily living? No 10/14/2023 Housing Stability Vital Sign Answer [place] Recorded In the last 12 months, was t here a time when you were not able to pay the mortgage or rent on time? No 10/14/2023 Number of Places Lived in the Last Year Not on f ile 10/14/2023 In the last 12 months, was t here a time when you did not have a steady place to sleep or slept in a long term (including now)? No 10/14/2023 Housing Stability Vital Sign Answer [place] Recorded In the last 12 months, was t here a time when you were not able to pay the mortgage or rent on time? No 10/14/2023 Number of Times Moved in the Last Year Not on fi le 10/14/2023 Homeless in the Last Year Not on file 2023 Education Answer Date Recorded What is the highest level of school you have completed or the highest degree you have received? 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 on file Not on file Not on file documented as of this encounter Plan of Treatment Upcoming Encounters Date Type Department Care Team (Late st Contact Info) Description 03/30/2025 1:30 PM EDT Office Visit [facility] [address] [place] [phone] Santosh Nuñez DO [address] [place] [address] 04/13/2025 9:30 AM EDT Office Visit [facility] [address] [place] [address] Rene Pandey MD [address] [place] [address] documented as of this encounter Procedures Procedure Name Priority Date/Time Associated Diagnosis Comments ECG 12-LEAD 11/02/2023 2:07 PM EDT documented in this encounter Results * ECG 12 lead (11/02/2023 2:07 PM EDT) 11/02/2023 2:07 PM EDT Narrative [facility] - 11/03/2023 6:29 PM EDT Ventricular Rate : 115 BPM Atrial Rate : 115 BPM P-R Interval : 154 ms QRS Duration : 90 ms Q-T Interval : 315 ms QTC Calculation(Bazett) : 436 ms Calculated P [place] : 45 degrees Calculated R [place] : 48 degrees Calculated T [place] : 4 degrees Sinus tachycardia Low voltage, extremity leads Otherwise Normal ECG Confirmed by BOLIVAR DEAL M.D. ([id number]) on 11/03/2023 6:29:34 PM NAME : AISHA CLINTON PID : [id number] : 1955 Gender : Male Race : ORD : [id number] Procedure Date : Nov 02 2023 14:07:51 Edit Date : Nov 03 2023 18:29:35 Diagnosis: Sinus tachycardia Low voltage, extremity leads Otherwise Normal ECG Confirmed by BOLIVAR DEAL M.D. ([id number]) on 11/03/2023 6:29:34 PM Test Reason : Arrhythmia Location : 400 : FVEKG PK3A Overread By : BOLIVAR DEAL M.D. Edited By : BOLIVAR DEAL M.D. Referred By : , Acquired by : LESLEE SILVA Procedure Note Radiology, Radiologist, MD - 11/03/2023 Ventricular Rate : 115 BPM Atrial Rate : 115 BPM P-R Interval : 154 ms QRS Duration : 90 ms Q-T Interval : 315 ms QTC Calculation(Bazett) : 436 ms Calculated P [place] : 45 degrees Calculated R [place] : 48 degrees Calculated T [place] : 4 degrees Sinus tachycardia Low voltage, extremity leads Otherwise Normal ECG Confirmed by BOLIVAR DEAL M.D. ([id number]) on 11/03/2023 6:29:34 PM NAME : AISHA CLINTON PID : [id number] : 1955 Gender : Male Race : ORD : [id number] Procedure Date : Nov 02 2023 14:07:51 Edit Date : Nov 03 2023 18:29:35 Diagnosis: Sinus tachycardia Low voltage, extremity leads Otherwise Normal ECG Confirmed by BOLIVAR DEAL M.D. ([id number]) on 11/03/2023 6:29:34 PM Test Reason : Arrhythmia Location : 400 : FVEKG PK3A Overread By : BOLIVAR DEAL M.D. Edited By : BOLIVAR DEAL M.D. Referred By : , Acquired by : LESLEE SILVA us Generic External Data Provider ECG ORDERABLES F inal Result [facility] documented in this encounter Visit Diagnoses Not on filedocumented in this encounter Care Teams Swatcher Relationship Specialty Start Date End Date Rene Pandey MD [address] [place] [address] (Fax) PCP - [facility] [employer] 11/23/20 01/23/24 Rene Pandey MD [address] [place] [address] (Fax) PCP - General Family Medicine 01/24/23 Rene Pandey MD [address] [place] [address] PCP - [employer] 03/25/24 04/24/24 Ra Silveira MD [address] [place] [address] [place] [address] Referring Physician Hematology and Oncology 11/23/24 Jean Madsen MD [address] [place] [address] [address] [place] [address] Referring Physician Cardiology 11/23/24 documented as of this encounter
--- OUTSIDE RECORDS SUMMARY | 2025-02-22 21:45 | XMS_ITS | Encounter Summary ---
Author Organization [facility] Address [address] [place] [address] Care Team Providers Care Consulting Services Project Manager Name Role Phone Rene Pandey MD Primary Care Provider [phone] Rene Pandey MD Unavailable [phone] Ra Silveira MD Unavailable [phone] Jean Madsen MD Unavailable [phone] Reason for Visit * Reason Comments Med Refill Encounter Details Date Type Department Care Team (Late st Contact Info) Description 04/10/2024 Refill [facility] [address] [place] [address] Rene Pandey MD [address] [place] [address] (Fax) Benign essential hypertension Social History Tobacco Use Types Packs/Day Years [...] 10/14/2023 How often do you attend chur or rastafarian services? 1 to 4 times per year 10/14/2023 Do you belong to any clubs o r organizations such as orthodoxy groups, unions, fraternal or athletic groups, or [...] Recorded Patient Health Questionnaire-2 Score 0 01/29/2023 [facility] - Occupational Stress Questionnaire Answer Date Recorded [...] place to sleep or slept in a skilled nursing (including now)? 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 Not on file Not on file documented as of this encounter Plan of Treatment Upcoming Encounters Date Type Department Care Team (Late st Contact Info) Description 03/30/2025 1:30 PM EDT Office Visit [facility] [address] [place] [phone] Santosh Nuñez DO [address] [place] [address] 04/13/2025 9:30 AM EDT Office Visit [facility] [address] [place] [address] Rene Pandey MD [address] [place] [address] (Fax) documented as of this encounter Visit Diagnoses Diagnosis Benign essential hypertension Essential hypertension, benign documented in this encounter Care Teams Consulting Services Project Manager Relationship Specialty Start Date End Date Rene Pandey MD PCP - General Family Medicine 01/24/23 Rene Pandey MD [address] [facility] [address] [place] [address] PCP - [place] [employer] 03/25/24 04/24/24 Ra Silveira MD [address] [place] [address] [place] [address] Referring Physician Hematology and Oncology 11/23/24 Jaen Madsen MD [address] [place] [address] [address] [place] [address] Referring Physician Cardiology 11/23/24 documented as of this encounter
--- OUTSIDE RECORDS SUMMARY | 2025-02-22 21:45 | XMS_ITS | Clinical Summary ---
Author Organization [employer] [facility] Address [id number] [address] [place] [address] Care Team Providers Care Horticultural Worker Name Role Phone Unavailable Primary Care Provider Unavailabl e Social History Tobacco Use Types Packs/Day Years Used Date Smoking Tobacco: Never Assessed Childcare Answer Date Recorded Childcare Unknown 02/03/2019 Employment Answer Date Recorded Employment Unknown 02/03/2019 Sex and Gender Information Value Date Recorded Sex Assigned at Not on file Legal Sex Male 12:02 PM EDT Gender Identity Not on file Sexual Orientation Not on file Last Filed Vital Signs Vital Sign Reading Time Taken Comments Blood Pressure 141/80 07/24/2017 10:48 AM EST Pulse - - Temperature - - Respiratory Rate - - Oxygen Saturation - - Inhaled Oxygen Concentration - - Weight 102.1 kg (225 lb) 07/24/2017 10:48 AM EST Height 172.7 cm (5' 8 ) 07/24/2017 10:48 AM EST Body Mass Index 34.21 07/24/2017 10:48 AM EST Plan of Treatment Not on file Medical Devices Not on file
--- OUTSIDE RECORDS SUMMARY | 2025-02-22 21:45 | XMS_ITS | Clinical Summary ---
Author Organization [facility] Address [address] [place] [id number] Care Team Providers Care Pyrometer Temperature Regulator Name Role Phone Rene Pandey MD Primary Care Provider Ra Silveira MD Unavailable [phone] Itzel Singh APRN.SHIPYARD HELPER Unavailable [phone] Allergies No known active allergies Medications MULTIVITAMIN ORAL Take by mouth. Active losartan (COZAAR) 100 mg tablet Take 100 mg by mouth once daily. Active ferrous sulfate (IRON) 325 mg (65 mg iron) tablet Take 30 mg by mouth once daily. Active finasteride (PROSCAR) 5 mg tablet Take 5 mg by mouth. 10/19/2024 02/11/20 25 Discontinu ed(Side Effects) Active Problems Problem Noted Date Diagnosed Date MEKA (iron deficiency anemia) 12/13/2024 Gastrointestinal hemorrhage 11/03/2024 Neuroendocrine tumor 10/31/2024 Assessment & Plan (11/03/2024 3:19 PM EDT): Pt in care with oncologist Dr. Ra Silveira. Most recent PET scan was Jul 2024. - Follow up with OP Oncology provider Assessment & Plan (10/31/2024 3:07 PM EDT): Pt in care with oncologist Dr. Ra Silveira. Most recent PET scan was Jul 2024. Since provider does not round at [place] will place consult with [facility] heme/onc for eval and recommendations. Anemia 10/31/2024 Assessment & Plan (11/03/2024 3:19 PM EDT): - HGB 7.3 - Stable - Follow up with PCP and HEM/ONC Assessment & Plan (10/31/2024 3:07 PM EDT): Pt with a Hb of 5.7. otherwise vitals are stable. Will transfuse 2 units of RBCs and monitor labs. 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 Denies difficulty swallowing or any bleeding. 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 The patient also presented initially with a gastric outlet obstruction and was admitted for nutritional support and workup. Convulsions 08/16/2023 Vasovagal syncope 08/16/2023 Near syncope 08/15/2023 Generalized weakness 08/15/2023 Malnutrition of moderate degree 08/08/2023 Pre-op evaluation 08/08/2023 HTN (hypertension) 08/08/2023 Assessment & Plan (11/03/2024 3:19 PM EDT): - Continue home medications Assessment & Plan (10/31/2024 3:07 PM EDT): Pt on losartan. Did not take med today and BP is wnl. Will hold today. Assessment & Plan (10/13/2023 11:51 AM EST): Assessment: stable w/out med Last 5 Encounter BP Readings: Date: BP: 10/13/2023 103/57 10/02/2023 127/72 08/28/2023 113/55 08/28/2023 93/53 08/14/2023 102/74 Therapeutic drug monitoring 08/08/2023 Feeding difficulties 08/08/2023 On total parenteral nutrition (TPN) 08/08/2023 Failure to thrive in adult 08/07/2023 Alcoholism 01/28/2023 10/13/2023 Assessment & Plan (10/13/2023 11:52 AM EST): Assessment: daily drinker, advised to taper or stop prior to surgery HLD (hyperlipidemia) 01/28/2023 10/13/2023 Stage 2 chronic kidney disease 01/28/2023 0 10/13/2023 Assessment & Plan (10/13/2023 11:52 AM EST): Assessment: Stable, asymptomatic BUN Date Value Ref Range Status 09/05/2023 25 (H) 9 - 24 mg/dL Final 09/04/2023 21 9 - 24 mg/dL Final 09/03/2023 21 9 - 24 mg/dL Final Creatinine Date Value Ref Range Status 09/05/2023 0.83 0.73 - 1.22 mg/dL Final 09/04/2023 0.80 0.73 - 1.22 mg/dL Final 09/03/2023 0.84 0.73 - 1.22 mg/dL Final Resolved Problems Problem Noted Date Diagnosed Date Resolved Date Acute blood loss anemia 11/01/202410/23 GI bleed 10/31/2024 11/03/2024 Assessment & Plan (11/03/2024 3:19 PM EDT): - Resolved - EGD/COLONOSCOPY revealed hemorrhoids; follow up with [facility] as an OP Assessment & Plan (10/31/2024 3:07 PM EDT): Mr. Alexander presents today with 1 wk of bloody diarrhea and 2 episodes of bloody emesis. Went to [facility] ED 4 days ago and hb was 8.2. Also experiencing sxs of fatigue, dyspnea, and occ dizzyness. 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 Plan: -ordered RBC transfusion of 2units. -GI on consult, appreciate recs. -IVF -NPO after midnight-Hgb on arrival and [id number] x 24 hours. -Monitor stool color and volume. -Transfuse again if Hgb <7 and patient symptomatic. -IV Protonix BID. -GI consulted; awaiting recommendations. Hematemesis with nausea 10/31/202410/23 Melena 10/31/2024 11/03/2024 Hematochezia 10/31/2024 11/03/2024 Dehydration 08/28/2023 09/05/2023 Mild mitral regurgitation 01/28/2023 10/13/2023 Mild tricuspid regurgitation 01/28/2023 10/13/2023 10/13/2023 Encounters Date Type Department Care Team Description 02/10/2025 10:00 AM EDT Infusion Center Hematology/Oncology [facility] [place] [address] 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) 02/07/2025 [place]phone [place] [address] Ra Silveira MD Nm Pet Request 01/20/2025 10:00 AM EDT Infusion Center Hematology/Oncology [facility] [place] [address] 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) 01/20/2025 9:30 AM EDT Visit (SP) Office Hematology/[place] [address] Itzel Singh, DEVAN.SHIPYARD HELPER 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); 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 Travel 12/30/2024 9:45 AM EDT Infusion Center Hematology/Oncology [address] [place] [address] 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) 12/16/2024 Orders Only Hematology/Oncology [address] [place] [address] [place] [address] Ra iSlveira MD 12/15/2024 1:00 PM EDT Infusion Center Hematology/Oncology [address] [place] [address] [place] [address] Iron deficiency anemia, unspecified iron deficiency anemia type (Primary Dx) 12/15/2024 Orders Only Hematology/Oncology [address] [place] [address] [place] [address] Joy Tan PA-C 12/13/2024 Orders Only [facility] [address] [place] [address] Ericka Mistry chava Iron deficiency anemia, unspecified iron deficiency anemia type (Primary Dx) 12/13/2024 Results Follow-Up Hematology/Oncology [address] [place] [address] [place] [address] Ra Silveira MD IV iron 12/09/2024 9:30 AM EDT Infusion Center Hematology/Oncology [address] [place] [address] [place] [address] 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) 12/09/2024 9:00 AM EDT Visit (SP) Office Hematology/Oncology [address] [place] [address] [place] [address] Ra Silveira MD 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); 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); Lung mass; Bone lesion; Iron deficiency anemia due to chronic blood loss 12/09/2024 Travel 12/08/2024 7:49 AM EDT - 12/08/2024 11:59 PM EDT Hospital Encounter Molecular Imaging [address] [place] [address] 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] Discharge Disposition: Home 12/08/2024 7:48 AM EDT Hospital Encounter Molecular Imaging [address] [place] [address] Discharge Disposition: Home from Last 3 Months Immunizations Immunization Administration Dates Next Due tetanus diphtheria pertussis (Tdap) vaccine, age 7+ yr (ADACEL, BOOSTRIX) 02/16/2023 Family History Medical History Relation Comments Uterine Cancer Mother bile duct cancer Sister Colon Cancer No Family History Relation Status Comments Mother Sister Social History Tobacco Use Types Packs/Day Years Used Date Smoking Tobacco: Never Smokeless Tobacco: Never Alcohol Use Standard Drinks/Week Comments Yes 0 (1 standard drink = 0.6 oz pur e alcohol) a few beers per day [facility] Utilities Answer Date Recorded In the past [...] place to sleep or slept in a correction (including now)? No 10/31/2023 Housing Stability Vital Sign Answer [place] e Recorded In the last 12 months, was t here a time when you were not able to pay the mortgage or rent on time? No 11/02/2024 In the past 12 months, how m any times have you moved where you were living? 0 11/02/2024 At any time in the past 12 m [facility], were you homeless or living in a correction (including now)? No 11/02/2024 Area Deprivation Index Answer Date Clarence rded National Score (1-100), lower number is lower ri sk 63 08/07/2023 State Score (1-10), lower number is lower risk 4 08/07/2023 Data from: https://www.neighborhoodatlas.[facility].edu/. Last address used for calculation [address] 08/07/2023 Sex and Gender Information Value Date Recorded Sex Assigned at Male 11/16/2023 7:12 PM EDT Legal Sex Male 3:01 PM EST Gender Identity Male 11/16/2023 7:12 PM EDT Sexual Orientation Straight 11/16/2023 7: 12 PM EDT Last Filed Vital Signs Vital Sign Reading Time Taken Comments Blood Pressure 145/69 02/10/2025 10:12 AM EDT Pulse 75 02/10/2025 10:12 AM EDT Temperature 36.3 C (97.4 F) 01/20/2025 9:30 AM EDT Respiratory Rate 18 02/10/2025 10:12 AM EDT Oxygen Saturation 99% 02/10/2025 10:12 AM EDT Inhaled Oxygen Concentration - - Weight 79 kg (174 lb 2.6 oz) 01/20/2025 9:30 AM EDT Height 176.5 cm (5' 9.49 ) 01/20/2025 9:30 AM ED T Body Mass Index 25.36 01/20/2025 9:30 AM EDT Plan of Treatment Upcoming Encounters Date Type Department Care Team (Latest Contact Info) Description 03/09/2025 8:00 AM EDT Appointment Molecular Imaging [address] [place] [address] DOTATATE PET PT 0094 03/09/2025 9:00 AM EDT Appointment Molecular Imaging [address] [place] [address] DOTATATE PET PT 0094 03/10/2025 12:45 PM EDT Office Visit [facility] Laboratory [address] [place] [address] LAB AND SANDOSTATIN needs this date due to PET scan on 03/0903/10/2025 1:00 PM EDT Visit (SP) Office Hematology/Oncology [address] [place] [address] Ra Silveira MD [address] [place] [address] LAB AND SANDOSTATIN needs this date due to PET scan on 03/0903/10/2025 1:30 PM EDT [facility] Hematology/Oncology [address] [place] [address] LAB AND SANDOSTATIN needs this date due to PET scan on 03/09 Health Maintenance Due Date Last Done Comments Annual PCP Team Chronic Dise ase Visit 1973 Anxiety Screening 1973 Depression Screening 1973 Hepatitis C Screening 1973 Pneumococcal Vaccine: 50+ (1 of 2 - PCV) [address] Colonography 2000 Cologuard (FIT-DNA) 2000 Fecal Occult Blood 2000 Sigmoidoscopy 2000 Shingrix Vaccine (1 of 2) 2005 Covid-19 Vaccine (1 - 2023-2 5 season) 2024 Advance Directive Discussion 08/25/2024 Medicare Annual Wellness Visit 10/23/2024 Influenza Vaccine (Season Ended) 2025 Colonoscopy 11/01/2025 11/01/2024 Colorectal Cancer Screening 11/01/2025 Serum Creatinine 02/10/2026 02/10/2025, , 12/30/2024, Additional history exists Diabetes Screening 02/11/2028 02/10/2025, 0 01/20/2025, 12/30/2024, Additional history exists RSV Vaccine (1 - 1-dose 75+ series) 2030 DTaP,Tdap,Td Vaccine (2 - Td or Tdap) 02/16/2033 02/16/2023 Medical Devices Implanted Type Area Theatre Professor Device Identifier Shelf Expiration Date Model / Serial / Lot Jejunal Feeding Set 12ff X 66cm Implanted:Qty: 1 on 08/13/2023 by Stephanie Avery MD at [facility] N/A: Abdomen 06/19/2025 [id number] / / [id number] Percutane Endoscopic Gastrostomy Set Implanted:Qty: 1 on 08/13/2023 by Stephanie Avery MD at [facility] N/A: Abdomen 04/25/2024 [id number] / / [id number] Procedures Procedure Name Priority Date/Time Associated Diagnosis Comments IRON + TIBC Routine 02/10/2025 9:48 AM EDT 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) FERRITIN BLD Routine 02/10/2025 9:48 AM EDT 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) COMPREHENSIVE METABOLIC PANEL Routine 02/10/2025 9:48 AM EDT Iron deficiency anemia due to chronic blood loss CBC + DIFF Routine 02/10/2025 9:48 AM EDT Iron deficiency anemia due to chronic blood loss COMPREHENSIVE METABOLIC PANEL Routine 01/20/2025 9:29 AM EDT 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) CBC + DIFF Routine 01/20/2025 9:29 AM EDT 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) SEROTONIN BLD Routine 01/20/2025 9:29 AM EDT 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) CHROMOGRANIN A Routine 01/20/2025 9:29 AM EDT 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) VASOACTIVE INTESTINAL POLYPEPTIDE (VIP), PLASMA Routine 01/20/2025 9:29 AM EDT 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) GASTRIN BLD Routine 01/20/2025 9:29 AM EDT 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) COMPREHENSIVE METABOLIC PANEL Routine 12/30/2024 9:32 AM EDT 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) CBC + DIFF Routine 12/30/2024 9:32 AM EDT 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) SEROTONIN BLD Routine 12/30/2024 9:32 AM EDT 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) CHROMOGRANIN A Routine 12/30/2024 9:32 AM EDT 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) VASOACTIVE INTESTINAL POLYPEPTIDE (VIP), PLASMA Routine 12/30/2024 9:32 AM EDT 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) GASTRIN BLD Routine 12/30/2024 9:32 AM EDT 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) FOLATE SERUM Routine 12/20/2024 9:08 AM EDT Iron deficiency anemia due to chronic blood loss VITAMIN B12 BLOOD Routine 12/20/2024 9:0 8 AM EDT Iron deficiency anemia due to chronic blood loss FERRITIN BLD Routine 12/20/2024 9:08 AM EDT Iron deficiency anemia due to chronic blood loss IRON + TIBC Routine 12/20/2024 9:08 AM EDT Iron deficiency anemia due to chronic blood loss COMPREHENSIVE METABOLIC PANEL Routine 12/20/2024 9:08 AM EDT Iron deficiency anemia due to chronic blood loss CBC + DIFF Routine 12/20/2024 9:08 AM EDT Iron deficiency anemia due to chronic blood loss FOLATE SERUM Routine 12/09/2024 8:47 AM EDT Anemia, unspecified type VITAMIN B12 BLOOD Routine 12/09/2024 8:4 7 AM EDT Anemia, unspecified type FERRITIN BLD Routine 12/09/2024 8:47 AM EDT Anemia, unspecified type IRON + TIBC Routine 12/09/2024 8:47 AM EDT Anemia, unspecified type COMPREHENSIVE METABOLIC PANEL Routine 12/09/2024 8:47 AM EDT 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) CBC + DIFF Routine 12/09/2024 8:47 AM EDT 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) SEROTONIN BLD Routine 12/09/2024 8:47 AM EDT 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) CHROMOGRANIN A Routine 12/09/2024 8:47 AM EDT 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) VASOACTIVE INTESTINAL POLYPEPTIDE (VIP), PLASMA Routine 12/09/2024 8:47 AM EDT 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 Iron 250(H) 41 - 186 ug/dL 02/10/2025 4:39 PM EDT [facility] TIBC 401(H) 232 - 386 ug/dL 02/10/2025 4:39 PM EDT [facility] Transferrin Saturation 62.3(H) 15.0 - 57.0 % 02/10/2025 4:39 PM EDT [facility] Blood BLOOD SPECIMEN / Unknown Venipuncture / Unknown 02/10/2025 9:48 AM EDT 02/10/2025 9:48 AM EDT us Itzel Singh APRN.SHIPYARD HELPER LABORATORY Final Re sult Performing Organization Address [facility] Co de Phone Number [facility] [address] [place] [address], * FERRITIN (02/10/2025 9:48 AM EDT) Only the most recent of3 resultswithin the time period is included. Ferritin 40.3 30.3 - 565.7 ng/mL 02/10/2025 4:45 PM EDT [facility] Blood BLOOD SPECIMEN / Unknown Venipuncture / Unknown 02/10/2025 9:48 AM EDT 02/10/2025 9:48 AM EDT us Itzel Singh PULVI MIXER OPERATOR.SHIPYARD HELPER LABORATORY Final Re sult [facility] [address] [facility] [address] [place] [address], [place] * (ABNORMAL) COMPREHENSIVE METABOLIC PANEL (02/10/2025 9:48 AM EDT) Only the most recent of5 resultswithin the time period is included. Pathologist [facility] Protein, Total 6.5 6.3 - 8.0 g/dL 02/10/2025 10:25 AM EDT [facility] Albumin 4.1 3.9 - 4.9 g/dL 02/10/2025 10:25 AM EDT [facility] Calcium, Total 9.0 8.5 - 10.2 mg/dL 02/10/2025 10:25 AM EDT [facility] Bilirubin, Total 0.4 0.2 - 1.3 mg/dL 02/10/2025 10:25 AM EDT [facility] Alkaline Phosphatase 175(H) 38 - 113 U/L 02/10/2025 10:25 AM EDT [facility] AST 39 14 - 40 U/L 02/10/2025 10:25 AM EDT [facility] ALT 20 10 - 54 U/L 02/10/2025 10:25 AM EDT [facility] Glucose 107(H) 74 - 99 mg/dL 02/10/2025 10:25 AM EDT [facility] Comment: The [place] Diabetes Association (ADA) provides guidance for cutoff values for fasting glucose and random glucose. The ADA defines fasting as no caloric intake for at least 8 hours. Fasting plasma glucose results between 100 to 125 mg/dL indicate increased risk for diabetes (prediabetes). Fasting plasma glucose results greater than or equal to 126 mg/dL meet the criteria for diagnosis of diabetes. In the absence of unequivocal hyperglycemia, results should be confirmed by repeat testing. In a patient with classic symptoms of hyperglycemia or hyperglycemic crisis, random plasma glucose results greater than or equal to 200 mg/dL meet the criteria for diagnosis of diabetes. Reference: Standards of Medical Care in Diabetes 2016, [place] [employer] Diabetes Association. Diabetes Care. 2016.39(Suppl 1). BUN 14 9 - 24 mg/dL 02/10/2025 10:25 AM EDT [facility] Creatinine 1.02 0.73 - 1.22 mg/dL 02/10/2025 10:25 AM EDT [facility] Sodium 140 136 - 144 mmol/L 02/10/2025 10:25 AM EDT [facility] Potassium 4.8 3.7 - 5.1 mmol/L 02/10/2025 10:25 AM EDT [facility] Chloride 110(H) 98 - 107 mmol/L 02/10/2025 10:25 AM EDT [facility] CO2 21(L) 22 - 30 mmol/L 02/10/2025 10:25 AM EDT [facility] Anion Gap 9 8 - 15 mmol/L 02/10/2025 10:25 AM EDT [facility] Estimated Glomerular Filtration Rate 80 >=60 mL/min/1. 73m 02/10/2025 10:25 AM EDT [facility] Comment:Estimated Glomerular Filtration Rate (eGFR) is calculated using the 2020 CKD-EPI creatinine equation. This equation utilizes serum creatinine, sex, and age as parameters. The creatinine assay has traceable calibration to isotope dilution- mass spectrometry. Refer to KDIGO guidelines for clinical interpretation. In patients with unstable renal function, e.g. those with acute kidney injury, the eGFR may not accurately reflect actual GFR. Blood BLOOD SPECIMEN / Unknown Venipuncture / Unknown 02/10/2025 9:48 AM EDT 02/10/2025 9:48 AM EDT us Ra Silveira MD LABORATORY Final Result [facility] [address] [place] [address] * (ABNORMAL) COMPLETE BLOOD COUNT AND DIFFERENTIAL (02/10/2025 9:48 AM EDT) Only the most recent of5 resultswithin the time period is included. WBC 3.60(L) 3.70 - 11.00 k/uL 02/10/2025 10:[facility] RBC 3.69(L) 4.20 - 6.00 m/uL 02/10/2025 10:00 AM [facility] Hemoglobin 10.5(L) 13.0 - 17.0 g/dL 02/10/2025 10:00 AM T [facility] Hematocrit 33.6(L) 39.0 - 51.0 % 02/10/2025 10:00 AM [facility] MCV 91.1 80.0 - 100.0 fL 02/10/2025 10:00 AM [facility] MCH 28.5 26.0 - 34.0 pg 02/10/2025 10:00 AM [facility] MCHC 31.3 30.5 - 36.0 g/dL 02/10/2025 10:00 AM [facility] RDW-CV 15.9(H) 11.5 - 15.0 % 02/10/2025 10:00 AM [facility] Platelet Count 213 150 - 400 k/uL 02/10/2025 10:00 AM [facility] MPV 10.1 9.0 - 12.7 fL 02/10/2025 10:00 AM [facility] Neutrophils % 56.9 % 02/10/2025 10:00 AM [facility] Abs Neut 2.05 1.45 - 7.50 k/uL 02/10/2025 10:00 [facility] Lymphocytes % 13.6 % 02/10/2025 10:00 AM [facility] Abs Lymph 0.49(L) 1.00 - 4.00 k/uL 02/10/2025 10:00 AM [facility] Monocytes % 21.7 % 02/10/2025 10:00 AM EDT [facility] Abs [place] 0.78 <0.87 k/uL 02/10/2025 10:00 AM EDT [facility] Eosinophils % 6.1 % 02/10/2025 10:00 AM EDT [facility] Abs Eosin 0.22 <0.46 k/uL 02/10/2025 10:00 AM EDT [facility] Basophils % 1.1 % 02/10/2025 10:00 AM EDT [facility] Abs Baso 0.04 <0.11 k/uL 02/10/2025 10:00 AM EDT [facility] Immature Granulocytes % 0.6 % 02/10/2025 10:00 AM EDT [facility] Abs Immature Gran <0.03 <0.10 k/uL 02/10/2025 10:00 AM EDT [facility] NRBC 0.0 /100 WBC 02/10/2025 10:00 AM EDT [facility] Absolute nRBC <0.01 <0.01 k/uL 02/10/2025 10:00 AM EDT [facility] Diff Type Auto 02/10/2025 10:00 AM EDT [facility] Blood BLOOD SPECIMEN / Unknown Venipuncture / Unknown 02/10/2025 9:48 AM EDT 02/10/2025 9:48 AM EDT us Ra Silveira MD LABORATORY Final Result [facility] [address] [place] [address] * VIP (01/20/2025 9:29 AM EDT) Only the most recent of3 resultswithin the time period is included. Vasoactive Intestinal Polypeptide <20.0 0.0 - 89.1 pg/mL 01/24/2025 6:05 PM EDT [facility] Comment: This test was developed and its performance characteristics determined by [facility]. It has not been cleared or approved by the U.S. Food and Drug Administration. This test was performed in a CLIA-certified laboratory and is intended for clinical purposes. Performed By: [address] [address] Portfolio Analyst: Santosh Hollis MD, PhD CLIA Number: [id number] Blood BLOOD SPECIMEN / Unknown Venipuncture / Unknown 01/20/2025 9:29 AM EDT 01/20/2025 9:29 AM EDT us Ra Silveira MD LABORATORY Final Result Performing Organization Address City/[facility]/ZIP Co de Phone Number [address] [address] * (ABNORMAL) SEROTONIN BLD (01/20/2025 9:29 AM EDT) Only the most recent of3 resultswithin the time period is included. [facility] Serotonin Serum 1726(H) 50 - 220 ng/mL 01/23/2025 9:27 PM EDT [facility] Comment: TEST INFORMATION: Serotonin, Serum This test was developed and its performance characteristics determined by [employer]. It has not been cleared or approved by the [place] Food and Drug Administration. This test was performed in a CLIA certified laboratory and is intended for clinical purposes. Performed By: [facility] [employer] [address] [place] [id number] Portfolio Analyst: Santosh Hollis MD, PhD CLIA Number: [id number] Blood BLOOD SPECIMEN / Unknown Venipuncture / Unknown 01/20/2025 9:29 AM EDT 01/20/2025 9:29 AM EDT us Ra Silveira MD LABORATORY Final Result Performing Organization Address City/[facility]/ZIP Co de Phone Number [address] [address] * GASTRIN BLD (01/20/2025 9:29 AM EDT) Only the most recent of3 resultswithin the time period is included. Pathologist [facility] Gastrin 36.1 <115.0 pg/mL 01/21/2025 11:29 AM EDT [facility] Comment:The Gastrin test was performed using the Siemens Immulite chemiluminescent immunometric method. Results obtained with different assay methods or kits cannot be used interchangeably. Blood BLOOD SPECIMEN / Unknown Venipuncture / Unknown 01/20/2025 9:29 AM EDT 01/20/2025 9:29 AM EDT us Ra Silveira MD LABORATORY Final Result Performing Organization Address [facility] de Phone Number [facility] [place] [address], [place] * (ABNORMAL) CHROMOGRANIN A (01/20/2025 9:29 AM EDT) Only the most recent of3 resultswithin the time period is included. Pathologist [facility] Chromogranin A 240.1(H) <187.0 ng/mL 01/24/2025 2:43 PM EDT [facility] Comment:The Chromogranin A t est was performed using the Geddit CgA II KRYPTOR method. Results obtained with different assay methods or kits cannot be used interchangeably. Blood BLOOD SPECIMEN / Unknown Venipuncture / Unknown 01/20/2025 9:29 AM EDT 01/20/2025 9:29 AM EDT us Ra Silveira MD LABORATORY Final Result Performing Organization Address City/[facility] Co de Phone Number [facility] [address] [id number], [place] * VITAMIN B12 (12/20/2024 9:08 AM EDT) Only the most recent of2 resultswithin the time period is included. Pathologist [facility] Vitamin B12 763 232 - 1,245 pg/mL 12/21/2024 6:33 AM EDT [facility] Blood BLOOD SPECIMEN / Unknown Venipuncture / Unknown 12/20/2024 9:08 AM EDT 12/20/2024 9:09 AM EDT us Ra Silveira MD LABORATORY Final Result [facility] [address] [facility] [place] [id number], [place] * FOLATE, SERUM (12/20/2024 9:08 AM EDT) Only the most recent of2 resultswithin the time period is included. Folate 4.8 >4.7 ng/mL 12/21/2024 9:29 AM EDT [facility] Blood BLOOD SPECIMEN / Unknown Venipuncture / Unknown 12/20/2024 9:08 AM EDT 12/20/2024 9:09 AM EDT us Ra Silveira MD LABORATORY Final Result Performing Organization Address City/[facility] Co de Phone Number [facility] [address] [address], [place] * NM PET/CT NEUROENDOCRINE WHOLE BODY IMAGING (12/08/2024 9:17 AM EDT) Anatomical Region Laterality Modality Nuclear Medicine 12/08/2024 9:17 AM EDT Impressions 12/08/2024 2:14 PM EDT IMPRESSION: Since 08/03/2024, PRIMARY DISEASE SITE: * Unchanged SSTR2 expressing distant ilium lesion ANILA DISEASE: * Unchanged SSTR2 expressing retroperitoneal and mesenteric lymphadenopathy. 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 * Unchanged SSTR2 expressing diffuse pancreatic uptake. ADDITIONAL FINDINGS: * Unchanged mild tracer uptake in left apical pulmonary nodule. 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 TECHNIQUE: Radiopharmaceutical was administered IV followed by PET imaging from the skull vertex to thighs. Free breathing, low dose CT of the same body region was acquired without IV contrast for attenuation correction and anatomic localization. Unenhanced imaging is limited for the evaluation of some pathology and the acquired CT was not designed to produce diagnostic CT scan quality. Physiologic/non-pathologic uptake in some body regions could confound or obscure some pathology. * CT Dose-Length Product (DLP): 311 mGy*cm * CT Dose Reduction Employed: Yes * Injection site: Right Hand * Injected activity: 6 mCi * Uptake Time: 62 minutes * Radiopharmaceutical: Ga-68 Dotatate COMPARISON: Ga-68 Dotatate PET/CT 08/03/2024 CORRELATION: CT chest, abdomen pelvis of 10/28/2024 RESULT: REFERENCES: Dotatate uptake serves as a surrogate marker for somatostatin receptor 2 (SSTR2) expression. All reported standardized uptake values represent maximum SUV (SUVmax) per body weight, unless otherwise specified. SUV Reference Values: * Background Liver: SUVmax 6 * Background Spleen: SUVmax 14 Localizer Images: No additional findings. HEAD AND NECK: Head: No radiotracer avid lesion or mass effect in the intracranial compartment. Aerodigestive Tract: No radiotracer avid lesion. Lymph Nodes: Unchanged multiple tracer avid left supraclavicular adenopathy, for example 0.8 cm, SUV 36.4 Neck Soft Tissues: No radiotracer avid thyroid nodule. CHEST: Lungs & Pleura: Unchanged left apical 1.7 cm lung nodule with mild tracer uptake, SUV 2.1 Lymph Nodes: No radiotracer avid lymphadenopathy. Mediastinum: No radiotracer avid mass. Cardiovascular: Blood pool activity. No pericardial effusion. Chest Wall: No radiotracer avid soft tissue lesion. ABDOMEN AND PELVIS: Hepatobiliary: No radiotracer avid lesion. No measurable mass. Spleen: No radiotracer avid lesion. No splenomegaly. Pancreas: Unchanged diffuse tracer uptake in the pancreas, for example at the pancreatic head, SUV 40.0 Adrenals: No radiotracer avid nodule. Urinary Tract: Physiologic radiotracer excretion in the renal collecting systems and urinary bladder. No hydronephrosis. GI Tract/Peritoneum: Unchanged focal tracer uptake in the distal ileum, SUV 13.7 and tracer avid calcified mesenteric nodule, 1.8 cm, SUV 37.2 Unchanged tracer uptake at the region of the duodenum, SUV 42.3. Lymph Nodes: Unchanged multiple radiotracer avid retroperitoneal and mesenteric adenopathy, for example: * Left para-aortic, 1.2 cm ,SUV 34.0, image 202 * Midline mesenteric, 1.4 cm, SUV 23.4, image 213 Vasculature: Blood pool activity. 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 TECHNIQUE: Radiopharmaceutical was administered IV followed by PET imaging from the skull vertex to thighs. Free breathing, low dose CT of the same body region was acquired without IV contrast for attenuation correction and anatomic localization. Unenhanced imaging is limited for the evaluation of some pathology and the acquired CT was not designed to produce diagnostic CT scan quality. Physiologic/non-pathologic uptake in some body regions could confound or obscure some pathology. * CT Dose-Length Product (DLP): 311 mGy*cm * CT Dose Reduction Employed: Yes * Injection site: Right Hand * Injected activity: 6 mCi * Uptake Time: 62 minutes * Radiopharmaceutical: Ga-68 Dotatate COMPARISON: Ga-68 Dotatate PET/CT 08/03/2024 CORRELATION: CT chest, abdomen pelvis of 10/28/2024 RESULT: REFERENCES: Dotatate uptake serves as a surrogate marker for somatostatin receptor 2 (SSTR2) expression. All reported standardized uptake values represent maximum SUV (SUVmax) per body weight, unless otherwise specified. SUV Reference Values: * Background Liver: SUVmax 6 * Background Spleen: SUVmax 14 Localizer Images: No additional findings. HEAD AND NECK: Head: No radiotracer avid lesion or mass effect in the intracranial compartment. Aerodigestive Tract: No radiotracer avid lesion. Lymph Nodes: Unchanged multiple tracer avid left supraclavicular adenopathy, for example 0.8 cm, SUV 36.4 Neck Soft Tissues: No radiotracer avid thyroid nodule. CHEST: Lungs & Pleura: Unchanged left apical 1.7 cm lung nodule with mild tracer uptake, SUV 2.1 Lymph Nodes: No radiotracer avid lymphadenopathy. Mediastinum: No radiotracer avid mass. Cardiovascular: Blood pool activity. No pericardial effusion. Chest Wall: No radiotracer avid soft tissue lesion. ABDOMEN AND PELVIS: Hepatobiliary: No radiotracer avid lesion. No measurable mass. Spleen: No radiotracer avid lesion. No splenomegaly. Pancreas: Unchanged diffuse tracer uptake in the pancreas, for example at the pancreatic head, SUV 40.0 Adrenals: No radiotracer avid nodule. Urinary Tract: Physiologic radiotracer excretion in the renal collecting systems and urinary bladder. No hydronephrosis. GI Tract/Peritoneum: Unchanged focal tracer uptake in the distal ileum, SUV 13.7 and tracer avid calcified mesenteric nodule, 1.8 cm, SUV 37.2 Unchanged tracer uptake at the region of the duodenum, SUV 42.3. Lymph Nodes: Unchanged multiple radiotracer avid retroperitoneal and mesenteric adenopathy, for example: * Left para-aortic, 1.2 cm ,SUV 34.0, image 202 * Midline mesenteric, 1.4 cm, SUV 23.4, image 213 Vasculature: Blood pool activity. MUSCULOSKELETAL: Bones: Unchanged multiple radiotracer avid osseous metastases, for example: * Right posterior iliac bone, SUV 22.1 * Left anterior iliac bone, SUV 6.2 Soft Tissues: Unchanged tracer avid subcentimeter left ischial fossa nodule, SUV 5.6 Unchanged tracer avid soft tissue nodule adjacent to the base of the penis, 1.9 cm, SUV 30.3, image 291 IMPRESSION IMPRESSION: Since 08/03/2024, PRIMARY DISEASE SITE: * Unchanged SSTR2 expressing distant ilium lesion ANILA DISEASE: * Unchanged SSTR2 expressing retroperitoneal and mesenteric lymphadenopathy. 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 * Unchanged SSTR2 expressing diffuse pancreatic uptake. ADDITIONAL FINDINGS: * Unchanged mild tracer uptake in left apical pulmonary nodule. Krenning Score: 4 Certified Rehabilitation Counselor: PSCB Transcribe Date/Time: Dec 08 2024 1:14P Dictated by : JESSIE BALDWIN MD This examination was interpreted and the report reviewed and electronically signed by: JESSIE BALDWIN MD on Dec 08 2024 2:12PM EST Ra Silveira MD NM-[facility] Final Result * COLONOSCOPY DIAGNOSTIC (11/01/2024 2:27 PM EDT) Anatomical Region Laterality Modality Other 11/01/2024 2:27 PM EDT Narrative 11/01/2024 3:20 PM EDT [facility] Gastrointestinal Endoscopy Patient Name: Bobby Julien Procedure Date: 11/01/2024 2:27 PM Date of : 1955 Admit Type: Inpatient Age: 69 Room: [place] [id number] Gender: Male Note Status: Finalized Attending MD: Gen Winters MD, [id number] Procedure: Colonoscopy Indications: Evaluation of unexplained GI bleeding presenting with Hematochezia Providers: Gen Winters MD, Radha Silva, RN, Itzel Alicia, RN (Assisting Nurse), Sherri Lilly (Assisting Nurse) Patient Profile: This is a 69 year old male with PMHx of 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 Refer to note in patient chart for documentation of history and physical. Last Colonoscopy: 2020. Referring Physician: Nia Rojas CNP (Referring MD) Medicines: Monitored Anesthesia Care Complications: No immediate complications. Procedure: Pre-Anesthesia Assessment: - Prior to the procedure, a History and Physical was performed, and patient medications and allergies were reviewed. The patient's tolerance of previous anesthesia was also reviewed. The risks and benefits of the procedure and the sedation options and risks were discussed with the patient. All questions were answered, and informed consent was obtained. Prior Anticoagulants: The patient has taken no anticoagulant or antiplatelet agents. ASA Grade Assessment: III - A patient with severe systemic disease. After reviewing the risks and benefits, the patient was deemed in satisfactory condition to undergo the procedure. After I obtained informed consent, the scope was passed under direct vision. Throughout the procedure, the patient's blood pressure, pulse, and oxygen saturations were monitored continuously. The PCF [id number] was introduced through the anus and advanced to the terminal ileum. The colonoscopy was performed without difficulty. The patient tolerated the procedure well. The terminal ileum, ileocecal valve, appendiceal orifice, and rectum were photographed. The quality of the bowel preparation was evaluated using the BBPS ([place] Bowel Preparation Scale) with scores of: Right Colon = 2 (minor amount of residual staining, small fragments of stool and/or opaque liquid, but mucosa seen well), Transverse Colon = 2 (minor amount of residual staining, small fragments of stool and/or opaque liquid, but mucosa seen well) and Left Colon = 2 (minor amount of residual staining, small fragments of stool and/or opaque liquid, but mucosa seen well). The total BBPS score equals 6. The quality of the bowel preparation was fair. Scope Withdrawal Time: 0 hours 8 minutes 55 seconds Moderate Sedation: MAC anesthesia was administered by the anesthesia team. Total Procedure Duration: 0 hours 11 minutes 41 seconds Findings: The perianal and digital rectal examinations were normal. The terminal ileum appeared normal. Internal hemorrhoids were found during retroflexion. The hemorrhoids were large. The exam was otherwise normal throughout the examined colon. Impression: - Preparation of the colon was fair. - The examined portion of the ileum was normal. - Internal hemorrhoids. - No specimens collected. - No signs of stigmata of active or recent GI bleeding. Ileal mass not encountered. Recommendation: - Return patient to [facility] for [facility] care. - Resume previous diet today. - Continue present medications. - Suggest daily bowel regimen to avoid hard stools and straining, which can worsen hemorrhoidal bleeding. - The patient is not currently taking anticoagulant or antiplatelet agents. - Repeat colonoscopy at appointment to be scheduled if indicated based on overall prognosis because the bowel preparation was suboptimal. - Patient has a contact number available for emergencies. The signs and symptoms of potential delayed complications were discussed with the patient. Return to normal activities tomorrow. Written discharge instructions were provided to the patient. Procedure Code(s): --- Professional --- 34458, Colonoscopy, flexible; diagnostic, including collection of specimen(s) by brushing or washing, when performed (separate procedure) Diagnosis Code(s): --- Professional --- K64.8, Other hemorrhoids K92.1, Melena (includes Hematochezia) CPT copyright 2020 [employer] [employer]. All rights reserved. The codes documented in this report are preliminary and upon pedodontist review may be revised to meet current compliance requirements. Attending Participation: I personally performed the entire procedure. Scope In: 2:54:05 PM Scope Out: 3:05:46 PM MD Gen Escobar MD 11/01/2024 3:18:10 PM This report has been signed electronically by Gen Winters MD Number of Addenda: 0 Note Initiated On: 11/01/2024 2:27 PM Estimated Blood Loss: Estimated blood loss was minimal. Nia Rojas APRN.SHIPYARD HELPER DIGESTIVE DISEASE Final Result from Last 3 Months or Most Recently Relevant to Health Maintenance Insurance MEDICARE MEDICARE SUPPLEMENT Advance Directives * Full Code (Latest Code Status on File) Date Activated Date Inactivated Comments 10/31/2024 2:42 PM 11/03/2024 8:00 PM Question Answer Comments Full Code Order Discussed With: Patient Care Teams Pyrometer Temperature Regulator Relationship Specialty Start Date End Date Rene Pandey MD [address] [place] [address] PCP - General Family Medicine 08/05/23 Ra Silveira MD [address] [facility] [place] [address] Hematology/Oncology 11/17/24 Itzel Singh APRN.SHIPYARD HELPER [address] [place] [address] Nurse Practitioner Hematology/Oncology 01/22/25
--- OUTSIDE RECORDS SUMMARY | 2025-02-22 21:45 | XMS_ITS | Encounter Summary ---
Author Organization [facility] Address [address] [place] [address] Care Team Providers Care Housing Assistant Name Role Phone Rene Pandey MD Primary Care Provider [phone] Rene Pandey MD Unavailable [phone] Ra Silveira MD Unavailable [phone] Jean Madsen MD Unavailable [phone] Encounter Details Date Type Department Care Team (Late st Contact Info) Description 02/18/2024 Clinisync Result Encounter [facility] External Department Unsolicited [...] often do you attend chur ch or orthodox services? 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 file Not on file Not on file documented as of this encounter Plan of Treatment Upcoming Encounters Date Type Department Care Team (Late st Contact Info) Description 03/30/2025 1:30 PM EDT Office Visit [facility] [address] [place] [id number] Santosh Nuñez DO [address] [place] [address] 04/13/2025 9:30 AM EDT Office Visit [facility] [address] [facility] 100 [place] [address] Rene Pandey MD [address] [facility] [address] [place] [address] documented as of this encounter Procedures Procedure Name Priority Date/Time Associated Diagnosis Comments CT PANCREAS/PELVIS W IVCON 02/18/2024 8:19 AM EDT documented in this encounter Results * CT PANCREAS/PELVIS W IVCON (02/18/2024 8:19 AM EDT) Anatomical Region Laterality Modality Other 02/18/2024 8:19 AM EDT Narrative 02/18/2024 11:44 AM EDT * * *Final Report* * * DATE OF EXAM: Feb 18 2024 8:19AM [facility] 0553 - CT PANCREAS/PELVIS W IVCON / 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 Arterial phase images of the abdomen were obtained. MQ: CTAP_3 Contrast: IV: 150 ml of Omnipaque 300 : ml of CT Radiation dose: Integrated Dose-length product (DLP) for this visit = 1130 mGy*cm. CT Dose Reduction Employed: Automated exposure control (AEC) COMPARISON: Multiple previous CTs of the abdomen/pelvis, the most recent dated 10/01/2023 RESULT: Liver: No new liver mass. There is redemonstration of two subcentimeter hypoenhancing foci in the liver, for example on series 8 image 30 and series 8 image 59. Biliary: No bile duct dilation. Mildly distended gallbladder, perhaps related to a fasting state. Spleen: No mass. No splenomegaly. Pancreas: Remonstration of a confluent appearing mass and adjacent mesenteric lymph node metastases in the region of the pancreatic uncinate process, as described previously. This measures 6.4 x 5.0 cm in aggregate on series 4 image 53, compared to 6.8 x 5.1 cm in September 2023. Mass effect on the third portion of the duodenum appears slightly improved. A 2.1 x 1.9 cm nodular lesion within or adjacent to the pancreatic tail has decreased from 2.6 x 2.2 cm in September 2023. Adrenals: No mass. Kidneys: Mild multifocal bilateral renal cortical scarring. The kidneys are otherwise unremarkable. GI tract: Redemonstration of a short segmental area of arterially enhancing mural thickening involving a loop of distal ileum on series 4 image 84, the length of the affected area is slightly decreased from previously, compatible with the known carcinoid neoplasm. There is new nonspecific mild longer segment mural enhancement involving loops of small bowel in the right lower quadrant, which are at the upper limit of normal diameter. Sequelae of mild enteritis would be a consideration. The small and large bowel are normal in caliber, there is no evidence of bowel obstruction. The previously noted percutaneous gastrojejunostomy tube has been removed. Lymph nodes: Partially calcified nonenlarged right lower quadrant mesenteric lymph node measures 2.0 x 1.8 cm on series 8 image 78, decreased from 2.4 x 2.3 cm. Comparison to additional previously measured enlarged lymph nodes is as follows: 1.4 x 1.4 cm left para-aortic lymph node on series 8 image 55 has decreased from 2.0 x 1.8 cm. 2.1 x 1.8 cm left para-aortic lymph node on series 8 image 49 has decreased from 2.3 x 2.0 cm. 2.9 x 1.9 cm periceliac lymph node conglomerate has decreased from 3.6 x 2.3 cm. Additional enlarged retroperitoneal and mesenteric lymph nodes are either stable or slightly decreased in size as well, for example a 2.1 x 1.4 cm central/inferior mesenteric lymph node on series 8 image 69 measured 2.2 x 1.4 cm in September 2023. No enlarging lymph nodes are identified in the abdomen/pelvis. Mesentery/Peritoneum: Similar-appearing diffuse mesenteric edema, likely related to chronic narrowing/occlusion of the SMV due to the mesenteric root lymph node metastatic disease. Trace ascites is present in the right lower quadrant. There is a subtle area of scalloping along the posterior dome of the right hepatic lobe on series 8 image 20, this is stable to slightly improved from previously and may represent a peritoneal implant. Retroperitoneum: A similar appearing rind of infiltrative appearing soft tissue density is seen in the left anterior pararenal space posterior to the pancreas, with a fat plane the two structures on series 5 image 151. The appearance is compatible with stable infiltrative metastatic disease, presumably related to adjacent lymph node metastases. Vasculature: - Abdominal aorta and iliac arteries: No aneurysm. - Celiac and SMA: Patent without stenosis. The superior mesenteric artery is again encased by the mesenteric jackelyn metastases, with no narrowing. - Portal venous system (SMV, splenic vein, portal vein and branches): Stable appearing severe narrowing/occlusion of the SMV at the root of the mesentery due to mesenteric lymph node metastatic disease. The splenic vein is significantly narrowed as it courses posterior to the pancreas through the area of infiltrative neoplasm, it appears patent. The portal veins are patent. Perigastric and mesenteric venous collaterals are seen. - Hepatic veins: Patent. Pelvis: No mass, ascites or fluid collection. Bones/Soft Tissues: Stable appearance of numerous small sclerotic foci within thoracolumbar spine vertebral bodies and the bony pelvis, metastatic disease is again suspected. Lower thorax: No acute finding. Localizer images: No additional findings. IMPRESSION: 1. Redemonstrated findings of the known extensive metastatic neuroendocrine neoplasm, with slight improvement seen compared to September 2023. 2. Decrease in the length of the focally thickened segment of ileum in the right lower quadrant, at the site of the known primary ileal neuroendocrine tumor. An adjacent partially calcified right lower quadrant lymph node metastasis has decreased as well. 3. Slight decrease in size of extensive mesenteric lymph node metastatic disease and retroperitoneal lymph node metastatic disease, with measurements provided above. 4. Stable appearing infiltrative appearing neoplasm in the left anterior pararenal space of the retroperitoneum, and similar appearing possible intraperitoneal capsular implant along the dome of the liver. 5. Stable appearance of numerous small sclerotic foci, likely indicating stable skeletal metastatic disease. 6. Stable appearance of severe narrowing/occlusion of the SMV due to mesenteric lymph node metastatic disease, with unchanged associated mesenteric edema. There is new mild long segment mural hyperenhancement involving loops of small bowel in the right lower quadrant, sequelae of mild enteritis related to venous insufficiency would be a possibility. A trace amount of nonspecific ascites is present in the right lower quadrant, similar to previously. Transcribe Date/Time: Feb 18 2024 11:10A Dictated by: GINI RAMOS MD This examination was interpreted and the report reviewed and electronically signed by: GINI RAMOS MD on Feb 18 2024 11:42AM EST Thank you for allowing us to participate in the care of your patient. Should there be any questions regarding this interpretation, please call [phone]. If you are unable to reach us at the number above, please feel free to contact [facility] at [phone]. 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 Arterial phase images of the abdomen were obtained. MQ: CTAP_3 Contrast: IV: 150 ml of Omnipaque 300 : ml of CT Radiation dose: Integrated Dose-length product (DLP) for this visit = 1130 mGy*cm. CT Dose Reduction Employed: Automated exposure control (AEC) COMPARISON: Multiple previous CTs of the abdomen/pelvis, the most recent dated 10/01/2023 RESULT: Liver: No new liver mass. There is redemonstration of two subcentimeter hypoenhancing foci in the liver, for example on series 8 image 30 and series 8 image 59. Biliary: No bile duct dilation. Mildly distended gallbladder, perhaps related to a fasting state. Spleen: No mass. No splenomegaly. Pancreas: Remonstration of a confluent appearing mass and adjacent mesenteric lymph node metastases in the region of the pancreatic uncinate process, as described previously. This measures 6.4 x 5.0 cm in aggregate on series 4 image 53, compared to 6.8 x 5.1 cm in September 2023. Mass effect on the third portion of the duodenum appears slightly improved. A 2.1 x 1.9 cm nodular lesion within or adjacent to the pancreatic tail has decreased from 2.6 x 2.2 cm in September 2023. Adrenals: No mass. Kidneys: Mild multifocal bilateral renal cortical scarring. The kidneys are otherwise unremarkable. GI tract: Redemonstration of a short segmental area of arterially enhancing mural thickening involving a loop of distal ileum on series 4 image 84, the length of the affected area is slightly decreased from previously, compatible with the known carcinoid neoplasm. There is new nonspecific mild longer segment mural enhancement involving loops of small bowel in the right lower quadrant, which are at the upper limit of normal diameter. Sequelae of mild enteritis would be a consideration. The small and large bowel are normal in caliber, there is no evidence of bowel obstruction. The previously noted percutaneous gastrojejunostomy tube has been removed. Lymph nodes: Partially calcified nonenlarged right lower quadrant mesenteric lymph node measures 2.0 x 1.8 cm on series 8 image 78, decreased from 2.4 x 2.3 cm. Comparison to additional previously measured enlarged lymph nodes is as follows: 1.4 x 1.4 cm left para-aortic lymph node on series 8 image 55 has decreased from 2.0 x 1.8 cm. 2.1 x 1.8 cm left para-aortic lymph node on series 8 image 49 has decreased from 2.3 x 2.0 cm. 2.9 x 1.9 cm periceliac lymph node conglomerate has decreased from 3.6 x 2.3 cm. Additional enlarged retroperitoneal and mesenteric lymph nodes are either stable or slightly decreased in size as well, for example a 2.1 x 1.4 cm central/inferior mesenteric lymph node on series 8 image 69 measured 2.2 x 1.4 cm in September 2023. No enlarging lymph nodes are identified in the abdomen/pelvis. Mesentery/Peritoneum: Similar-appearing diffuse mesenteric edema, likely related to chronic narrowing/occlusion of the SMV due to the mesenteric root lymph node metastatic disease. Trace ascites is present in the right lower quadrant. There is a subtle area of scalloping along the posterior dome of the right hepatic lobe on series 8 image 20, this is stable to slightly improved from previously and may represent a peritoneal implant. Retroperitoneum: A similar appearing rind of infiltrative appearing soft tissue density is seen in the left anterior pararenal space posterior to the pancreas, with a fat plane the two structures on series 5 image 151. The appearance is compatible with stable infiltrative metastatic disease, presumably related to adjacent lymph nodemetastases. Vasculature: - Abdominal aorta and iliac arteries: No aneurysm. - Celiac and SMA: Patent without stenosis. The superior mesenteric artery is again encased by the mesenteric jackelyn metastases, with no narrowing. - Portal venous system (SMV, splenic vein, portal vein and branches): Stable appearing severe narrowing/occlusion of the SMV at the root of the mesentery due to mesenteric lymph node metastatic disease. The splenic vein is significantly narrowed as it courses posterior to the pancreas through the area of infiltrative neoplasm, it appears patent. The portal veins are patent. Perigastric and mesenteric venous collaterals areseen. - Hepatic veins: Patent. Pelvis: No mass, ascites or fluid collection. Bones/Soft Tissues: Stable appearance of numerous small sclerotic foci within thoracolumbar spine vertebral bodies and the bony pelvis, metastatic disease is again suspected. Lower thorax: No acute finding. Localizer images: No additional findings. IMPRESSION: 1. Redemonstrated findings of the known extensive metastatic neuroendocrine neoplasm, with slight improvement seen compared to September 2023. 2. Decrease in the length of the focally thickened segment of ileum in the right lower quadrant, at the site of the known primary ileal neuroendocrine tumor. An adjacent partially calcified right lower quadrant lymph node metastasis has decreased as well. 3. Slight decrease in size of extensive mesenteric lymph node metastatic disease and retroperitoneal lymph node metastatic disease, with measurements provided above. 4. Stable appearing infiltrative appearing neoplasm in the left anterior pararenal space of the retroperitoneum, and similar appearing possible intraperitoneal capsular implant along the dome of the liver. 5. Stable appearance of numerous small sclerotic foci, likely indicating stable skeletal metastatic disease. 6. Stable appearance of severe narrowing/occlusion of the SMV due to mesenteric lymph node metastatic disease, with unchanged associated mesenteric edema. There is new mild long segment mural hyperenhancement involving loops of small bowel in the right lower quadrant, sequelae of mild enteritis related to venous insufficiency would be a possibility. A trace amount of nonspecific ascites is present in the right lower quadrant, similar to previously. Transcribe Date/Time: Feb 18 2024 11:10A Dictated by: GINI RAMOS MD This examination was interpreted and the report reviewed and electronically signed by: GINI RAMOS MD on Feb 18 2024 11:42AM EST Thank you for allowing us to participate in the care of your patient. Should there be any questions regarding this interpretation, please call [phone]. If you are unable to reach us at the number above, please feel free to contact [facility] at [phone]. [id number] us Generic External Data Provider [facility] Final Result documented in this encounter Visit Diagnoses Not on filedocumented in this encounter Care Teams Housing Assistant Relationship Specialty Start Date End Date Rene Pandey MD PCP - General Family Medicine 01/24/23 Rene Pandey MD [address] [facility] 100 [place] [address] PCP - Interior Commercial 03/25/24 04/24/24 Ra Silveira MD [address] [place] [address] [place] [address] Referring Physician Hematology and Oncology 11/23/24 Jean Madsen MD [address] [facility] 2, [facility] 250 [place] [address] Referring Physician Cardiology 11/23/24 documented as of this encounter
--- OUTSIDE RECORDS SUMMARY | 2025-02-22 21:45 | XMS_ITS | Clinical Summary ---
Author Organization [facility] Address [address] [place] [address] Care Team Providers Care Manager Stylist Name Role Phone Unavailable Primary Care Provider Unavailabl e Social History Tobacco Use Types Packs/Day Years Used Date Smoking Tobacco: Never Assessed Sex and Gender Information Value Date Recorded Sex Assigned at Not on file Legal Sex Male 1:32 PM EST Gender Identity Not on file Sexual Orientation Not on file Plan of Treatment Not on file
--- OUTSIDE RECORDS SUMMARY | 2025-02-22 21:45 | XMS_ITS | Encounter Summary ---
Author Organization [facility] Address [address] [place] [address] Care Team Providers Care Web Database Developer Name Role Phone Rene Pandey MD Unavailable [phone] Rene Pandey MD Primary Care Provider [phone] Rene Pandey MD Unavailable [phone] Ra Silveira MD Unavailable [phone] Jean Madsen MD Unavailable [phone] Encounter Details Date Type Department Care Team (Late st Contact Info) Description 11/01/2023 Clinisync Result Encounter [facility] External Department Unsolicited [...] often do you attend chur ch or sabianist services? 1 to 4 times per year 10/14/2023 Do you belong to any clubs o r organizations such as hindu groups, unions, fraternal or athletic groups, or [...] Recorded Patient Health Questionnaire-2 Score 0 01/29/2023 [facility] ional [facility] - [...] place to sleep or slept in a m[facility]p (including now)? 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 Not on file Not on file documented as of this encounter Plan of Treatment Upcoming Encounters Date Type Department Care Team (Late st Contact Info) Description 03/30/2025 1:30 PM EDT Office Visit [facility] [address] [place] [id number] Santosh Nuñez DO [address] [place] [address] 04/13/2025 9:30 AM EDT Office Visit [facility] [address] [place] [address] Rene Pandey MD [address] [place] [address] documented as of this encounter Procedures Procedure Name Priority Date/Time Associated Diagnosis Comments ECG 12-LEAD 11/01/2023 3:56 PM EST documented in this encounter Results * ECG 12 lead (11/01/2023 3:56 PM EST) 11/01/2023 3:56 PM EST Narrative [facility] - 11/03/2023 6:29 PM EDT Ventricular Rate : 114 BPM Atrial Rate : 114 BPM P-R Interval : 143 ms QRS Duration : 88 ms Q-T Interval : 304 ms QTC Calculation(Bazett) : 419 ms Calculated P Coden : 35 degrees Calculated R Coden : -7 degrees Calculated T Coden : 33 degrees Sinus tachycardia Low voltage, extremity leads Consider anterior infarct Borderline ECG Confirmed by BOLIVAR DEAL M.D. ([id number]) on 11/03/2023 6:29:08 PM NAME : AISHA CLINTON PID : [id number] : 1955 Gender : Male Race : ORD : [id number] Procedure Date : Nov 01 2023 15:56:12 Edit Date : Nov 03 2023 18:29:11 Diagnosis: Sinus tachycardia Low voltage, extremity leads Consider anterior infarct Borderline ECG Confirmed by BOLIVAR DEAL M.D. ([id number]) on 11/03/2023 6:29:08 PM Test Reason : Palpitations Location : 400 : FVEKG PK3A Overread By : BOLIVAR DEAL M.D. Edited By : BOLIVAR DEAL M.D. Referred By : , Acquired by : JC HERNANDEZ Procedure Note Radiology, Radiologist, MD - 11/03/2023 Ventricular Rate : 114 BPM Atrial Rate : 114 BPM P-R Interval : 143 ms QRS Duration : 88 ms Q-T Interval : 304 ms QTC Calculation(Bazett) : 419 ms Calculated P Coden : 35 degrees Calculated R Coden : -7 degrees Calculated T Coden : 33 degrees Sinus tachycardia Low voltage, extremity leads Consider anterior infarct Borderline ECG Confirmed by BOLIVAR DEAL M.D. ([id number]) on 11/03/2023 6:29:08 PM NAME : AISHA CLINTON PID : [id number] : 1955 Gender : Male Race : ORD : [id number] Procedure Date : Nov 01 2023 15:56:12 Edit Date : Nov 03 2023 18:29:11 Diagnosis: Sinus tachycardia Low voltage, extremity leads Consider anterior infarct Borderline ECG Confirmed by BOLIVAR DEAL M.D. ([id number]) on 11/03/2023 6:29:08 PM Test Reason : Palpitations Location : 400 : FVEKG PK3A Overread By : BOLIVAR DEAL M.D. Edited By : BOLIVAR DEAL M.D. Referred By : , Acquired by : JC HERNANDEZ us Generic External Data Provider ECG ORDERABLES F inal Result [facility] documented in this encounter Visit Diagnoses Not on filedocumented in this encounter Care Teams Web Database Developer Relationship Specialty Start Date End Date Rene Pandey MD [address] [place] [address] PCP - [employer] 11/23/20 01/23/24 Rene Pandey MD [address] [place] [address] PCP - General Family Medicine 01/24/23 Rene Pandey MD [address] [place] [address] PCP - [employer] 03/25/24 04/24/24 Ra Silveira MD [address] [place] [address] [place] [address] Referring Physician Hematology and Oncology 11/23/24 Jean Madsen MD [address] [place] [address] [address], [address] [place] [address] Referring Physician Cardiology 11/23/24 documented as of this encounter
--- OUTSIDE RECORDS SUMMARY | 2025-02-22 21:45 | XMS_ITS ---
Author Organization [facility] Address [address] [place] [address] Care Team Providers Care Design Printer Balloon Name Role Phone Rene Pandey MD Primary Care Provider Ra Silveira MD Unavailable [phone] Itzle Singh APRN.CARD HAND Unavailable [phone] Active Problems Problem Noted Date Diagnosed Date [...] 2024. Since provider does not round at [place] will place consult with [facility] heme/onc for [...] Post-op pain 10/30/2023 GERD (gastroesophageal reflux disease) Assessment & Plan (10/13/2023 11:53 AM EST): Assessment: Managed and stable with current medication. Denies difficulty swallowing or any bleeding. 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) Treatment Medications Current Day (Day 1 , Cycle 18 - Planned for 03/10/2025) octreotide LAR (SandoSTATIN LAR) octreot dannie LAR 20 mg depot (monthly) injection (SandoSTATIN LAR) Other Current Plans AMB FERRIC DERISOMALTOSE ONCE* Plan Start Date:12/15/2024 Plan Provider:Ra Silveira MD Linked Problems Iron deficiency anemia, unsp ecified iron deficiency anemia type Treatment Medications Current Day (Day 1 , Cycle 2 - Planned for 01/12/2025) ferric derisomaltose (MONOFE RRIC)ferric derisomaltose iv piggyback in NaCl 0.9% 100 mL (MONOFERRIC) ferric derisomaltose 1,000 mg in NaCl 0.9% 100 mL (MONOFERRIC) Past Treatment and Therapy Plans No past plan information found. Resolved Problems Problem Noted Date Diagnosed Date Resolved Date Acute blood loss anemia 11/01/202410/23 GI bleed 10/31/2024 11/03/2024 Assessment & Plan (11/03/2024 3:19 PM EDT): - Resolved - EGD/COLONOSCOPY revealed hemorrhoids; follow up with [facility] as an OP Assessment & Plan (10/31/2024 3:07 PM EDT): Mr. Alexander presents today with 1 wk of bloody diarrhea and 2 episodes of bloody emesis. Went to [facility] ED 4 days ago and hb was 8.2. Also experiencing sxs of fatigue, dyspnea, and occ dizzyness. 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 Plan: -ordered RBC transfusion of 2units. -GI on consult, appreciate recs. -IVF -NPO after midnight-Hgb on arrival and b4tmubw x 24 hours. -Monitor stool color and volume. -Transfuse again if Hgb <7 and patient symptomatic. -IV Protonix BID. -GI consulted; awaiting recommendations. Hematemesis with nausea 10/31/202410/23 Melena 10/31/2024 11/03/2024 Hematochezia 10/31/2024 11/03/2024 Dehydration 08/28/2023 09/05/2023 Mild mitral regurgitation 01/28/2023 10/13/2023 Mild tricuspid regurgitation 01/28/2023 10/13/2023 10/13/2023
--- OUTSIDE RECORDS SUMMARY | 2025-02-22 21:45 | XMS_ITS | Encounter Summary ---
Author Organization [facility] Address [address] [place] [address] Care Team Providers Care Inspector Multifocal Lens Name Role Phone Rene Pandey MD Unavailable [phone] Rene Pandey MD Primary Care Provider [phone] Rene Pandey MD Unavailable [phone] Ra Silveira MD Unavailable [phone] Jean Madsen MD Unavailable [phone] Encounter Details Date Type Department Care Team (Late st Contact Info) Description 11/03/2023 Clinisync Result Encounter [facility] External Department Unsolicited [...] often do you attend chur ch or protestant services? 1 to 4 times per year 10/14/2023 Do you belong to any clubs o r organizations such as mosque groups, unions, fraternal or athletic groups, or [...] Recorded Patient Health Questionnaire-2 Score 0 01/29/2023 [facility] of Occupat ional Health - Occupational Stress [...] place to sleep or slept in a care home (including now)? 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 Not on file Not on file Not on file documented as of this encounter Plan of Treatment Upcoming Encounters Date Type Department Care Team (Late st Contact Info) Description 03/30/2025 1:30 PM EDT Office Visit [facility] [address] [place] [phone] Santosh Nuñez DO [address] [place] [address] 04/13/2025 9:30 AM EDT Office Visit [facility] [address] [place] [address] Rene Pandey MD [address] [place] [address] documented as of this encounter Procedures Procedure Name Priority Date/Time Associated Diagnosis Comments ECG 12-LEAD 11/03/2023 1:52 PM EDT documented in this encounter Results * ECG 12 lead (11/03/2023 1:52 PM EDT) 11/03/2023 1:52 PM EDT Narrative [facility] - 11/05/2023 9:04 PM EDT Ventricular Rate : 107 BPM Atrial Rate : 107 BPM P-R Interval : 148 ms QRS Duration : 98 ms Q-T Interval : 331 ms QTC Calculation(Bazett) : 442 ms Calculated P [place] : 63 degrees Calculated R [place] : 42 degrees Calculated T [place] : 18 degrees Sinus tachycardia Otherwise Normal ECG poor R wave progression Confirmed by MD SINGH IBRAHIM ([id number]) on 11/05/2023 9:04:36 PM NAME : AISHA CLINTON PID : [id number] : 1955 Gender : Male Race : ORD : [id number] Procedure Date : Nov 03 2023 13:52:22 Edit Date : Nov 05 2023 21:04:37 Diagnosis: Sinus tachycardia Otherwise Normal ECG poor R wave progression Confirmed by MD SINGH IBRAHIM ([id number]) on 11/05/2023 9:04:36 PM Test Reason : Palpitations Location : 400 : FVEKG PK3A Overread By : MD SINGH IBRAHIM Edited By : MD SINGH IBRAHIM Referred By : , Acquired by : ANURAG WARD Procedure Note Radiology, Radiologist, - 11/05/2023 Ventricular Rate : 107 BPM Atrial Rate : 107 BPM P-R Interval : 148 ms QRS Duration : 98 ms Q-T Interval : 331 ms QTC Calculation(Bazett) : 442 ms Calculated P [place] : 63 degrees Calculated R [place] : 42 degrees Calculated T [place] : 18 degrees Sinus tachycardia Otherwise Normal ECG poor R wave progression Confirmed by MD SINGH IBRAHIM ([id number]) on 11/05/2023 9:04:36 PM NAME : AISHA CLINTON PID : [id number] : 1955 Gender : Male Race : ORD : [id number] Procedure Date : Nov 03 2023 13:52:22 Edit Date : Nov 05 2023 21:04:37 Diagnosis: Sinus tachycardia Otherwise Normal ECG poor R wave progression Confirmed by MD SINGH IBRAHIM ([id number]) on 11/05/2023 9:04:36 PM Test Reason : Palpitations Location : 400 : FVEKG PK3A Overread By : MD SAMANTHA,OSBALDO Edited By : MD SAMANTHA,OSBALDO Referred By : , Acquired by : ANURAG WARD us Generic External Data Provider ECG ORDERABLES F inal Result [facility] documented in this encounter Visit Diagnoses Not on filedocumented in this encounter Care Teams Inspector Multifocal Lens Relationship Specialty Start Date End Date Rene Pandey MD [address] [place] [address] PCP - [place] [employer] 11/23/20 01/23/24 Rene Pandey MD [address] [address] PCP - General Family Medicine 01/24/23 Rene Pandey MD [address] [address] PCP - [place] [facility] 03/25/24 04/24/24 Ra Silveira MD [address] [place] [address] [place] [address] Referring Physician Hematology and Oncology 11/23/24 Jean Madsen MD [address] [place] [address] [address], [address] [place] [address] Referring Physician Cardiology 11/23/24 documented as of this encounter
--- OUTSIDE RECORDS SUMMARY | 2025-02-22 21:45 | XMS_ITS | Encounter Summary ---
Author Organization [facility] Address [address] [place] [address] Care Team Providers Care Cheese Maker Name Role Phone Rene Pandey MD Unavailable [phone] Rene Pandey MD Primary Care Provider + [phone] Rene Pandey MD Unavailable [phone] Ra Silveira MD Unavailable [phone] Jean Madsen MD Unavailable [phone] Encounter Details Date Type Department Care Team (Late st Contact Info) Description 10/29/2023 Abstract [facility] [address] [place] [address] Rene Pandey MD [address] [address] (Fax) Social History Tobacco Use Types Packs/Day Years [...] week 10/14/2023 How often do you attend [facility] or sikhism services? 1 to 4 times per year 10/14/2023 Do you belong to any clubs o r organizations such as zoroastrian groups, unions, fraternal or athletic groups, or [...] Recorded Patient Health Questionnaire-2 Score 0 01/29/2023 [facility] [place] [facility] - Occupational Stress Questionnaire Answer Date Recorded [...] place to sleep or slept in a half-way (including now)? 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 Not on file Not on file documented as of this encounter Plan of Treatment Upcoming Encounters Date Type Department Care Team (Late st Contact Info) Description 03/30/2025 1:30 PM EDT Office Visit [facility] [address] [place] [address] Santosh Nuñez DO [address] [place] [address] 04/13/2025 9:30 AM EDT Office Visit [facility] [address] [place] [address] Rene Pandey MD [address] [place] [address] (Fax) documented as of this encounter Visit Diagnoses Not on filedocumented in this encounter Care Teams Cheese Maker Relationship Specialty Start Date End Date Hemeyer, Edward J, MD [address] [place] [address] (Fax) PCP - [place] [employer] 11/23/20 01/23/24 Rene Pandey MD [address] [place] [address] (Fax) PCP - General Family Medicine 01/24/23 Rene Pandey MD [address] [place] [address] PCP - [place] [employer] 03/25/24 04/24/24 Ra Silveira MD [address] [place] [address] [place] [address] Referring Physician Hematology and Oncology 11/23/24 Jean Madsen MD [address] [place] [address] [address], [address] [place] [address] Referring Physician Cardiology 11/23/24 documented as of this encounter
--- OUTSIDE RECORDS SUMMARY | 2025-02-22 21:46 | XMS_ITS | Clinical Summary ---
Author Organization [facility] Address [address] [place] [address] Care Team Providers Care Material Handling Crew Supervisor Name Role Phone Rene Pandey MD Primary Care Provider Allergies No known active allergies Medications losartan (COZAAR) 100 MG tablet Take 1 tablet by mouth daily 90 tablet 1 10/23/2021 Active dilTIAZem (DILTIAZEM CD) 240 MG extended release capsule Take 1 capsule by mouth daily 90 capsule 1 10/23/2021 Active tamsulosin (FLOMAX) 0.4 MG capsule Take 1 capsule by mouth daily 90 capsule 1 10/23/2021 Active famotidine (PEPCID) 20 MG tablet Take 1 tablet by mouth nightly 90 tablet 1 10/23/2021 Active Calcium Carb-Cholecalci ferol (CALCIUM+D3) 500-400 MG-UNIT TABS Take 1 tablet by mouth daily 90 tablet 1 10/23/2021 Active metoprolol succinate (TOPROL XL) 100 MG extended release tablet Take 50 mg by mouth daily Active sucralfate (CARAFATE) 1 GM tablet TAKE 1 TABLET BY MOUTH THREE TIMES A DAY FOR 30 DAYS 11/21/2021 Active dicyclomine (BENTYL) 10 MG capsule TAKE 1 CAPSULE BY MOUTH EVERY EVENING 30 capsule 1 07/29/2022 Active Family History Medical History Relation Name Comments Other Father Massive Heart A ttack Cancer Sister Relation Name Status Comments Father Mother Sister Social History Tobacco Use Types Packs/Day Years Used Date Smoking Tobacco: Never Smokeless Tobacco: Never Alcohol Use Standard Drinks/Week Comments Yes 70 (1 standard drink = 0.6 oz pu re alcohol) Sex and Gender Information Value Date Recorded Sex Assigned at Not on file Legal Sex Male 10:47 AM EST Gender Identity Not on file Sexual Orientation Not on file Last Filed Vital Signs Vital Sign Reading Time Taken Comments Blood Pressure 161/79 12/04/2021 8:42 AM EDT Pulse 88 12/04/2021 8:42 AM EDT Temperature - - Respiratory Rate - - Oxygen Saturation 96% 12/04/2021 8:42 AM EDT Inhaled Oxygen Concentration - - Weight 86.6 kg (191 lb) 12/04/2021 8:42 AM EDT Height - - Body Mass Index - - Plan of Treatment Not on file Insurance BCBS OUT OF STATE Care Teams Material Handling Crew Supervisor Relationship Specialty Start Date End Date Rene Pandey MD PCP - General 10/17/21
--- OUTSIDE RECORDS SUMMARY | 2025-02-22 21:46 | XMS_ITS | Encounter Summary ---
Author Organization [facility] Address [address] [place] [address] Care Team Providers Care Cordwainer Name Role Phone Rene Pandey MD Primary Care Provider + [phone] Ra Leonard MD Unavailable [phone] Jean Madsen MD Unavailable [phone] Encounter Details Date Type Department Care Team (Late st Contact Info) Description 02/10/2025 Clinisync Result Encounter [facility] External Department Unsolicited [...] often do you attend chur ch or taoist services? 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 Not on file Not on file documented as of this encounter Plan of Treatment Upcoming Encounters Date Type Department Care Team (Late st Contact Info) Description 03/30/2025 1:30 PM EDT Office Visit [facility] [address] [place] [phone] Santosh Nuñez DO [address] [place] [address] 04/13/2025 9:30 AM EDT Office Visit [facility] [address] [facility] [address] [place] [address] Rene Pandey MD [address] [place] [address] documented as of this encounter Procedures Procedure Name Priority Date/Time Associated Diagnosis Comments [facility] IRON+TIBC PNL SERPL Routine 02/10/2025 9:48 AM EDT [facility] FERRITIN SERPL-MCNC Routine 02/10/2025 9:48 AM EDT [facility] CBC W AUTO DIFF BLD Routine 02/10/2025 9:48 AM EDT [facility] COMP METAB 2000 PNL SERPL Routine 02/10/2025 9:48 AM EDT documented in this encounter Results * [facility] FERRITIN SERPL-MCNC (02/10/2025 9:48 AM EDT) [facility] FERRITIN SERPL-MCNC 40.3 30.3 - 565.7 ng/mL [facility] 02/10/2025 9:48 AM EDT 02/10/2025 2:02 PM EDT Narrative [facility] - 02/10/2025 4:45 PM EDT Specimen Type: BLOOD SPECIMEN Ordering Facility: [facility] Address: [address] [place] [address] Original Ordering Provider: NATASHA RICHARDSON Generic External Data Provider CLINISYNC F inal Result Performing Organization Address [facility] Co de Phone Number ASHLEY [facility] [address] [place] [address] * (ABNORMAL) [facility] IRON+TIBC PNL SERPL (02/10/2025 9:48 AM EDT) [facility] IRON SERPL-MCNC 250(H) 41 - 186 ug/dL [facility] TIBC SERPL-MCNC 401(H) 232 - 386 ug/dL [facility] IRON/TIBC SERPL-SRTO 62.3(H) 15.0 - 57.0 % [facility] 02/10/2025 9:48 AM EDT 02/10/2025 2:02 PM EDT Narrative CLINISYNC - 02/10/2025 4:39 PM EDT Specimen Type: BLOOD SPECIMEN Ordering Facility: [facility] Address: [address] [place] [address] Original Ordering Provider: NATASHA RICHARDSON us Generic External Data Provider CLINISYNC F inal Result Performing Organization Address [facility] Co de Phone [place] [address] * (ABNORMAL) [facility] COMP METAB 2000 PNL SERPL (02/10/2025 9:48 AM EDT) [facility] PROT SERPL-MCNC 6.5 6.3 - 8.0 g/dL [facility] ALBUMIN SERPL-MCNC 4.1 3.9 - 4.9 g/dL [facility] CALCIUM SERPL-MCNC 9.0 8.5 - 10.2 mg/dL [facility] BILIRUB SERPL-MCNC 0.4 0.2 - 1.3 mg/dL [facility] ALP SERPL-CCNC 175(H) 38 - 113 U/L [facility] AST SERPL-CCNC 39 14 - 40 U/L [facility] ALT SERPL-CCNC 20 10 - 54 U/L [facility] GLUCOSE SERPL-MCNC 107(H) 74 - 99 mg/dL [facility] Comment: The [place] Diabetes Association (ADA) provides guidance for cutoff [...] Standards of Medical Care in Diabetes 2016, [place] Diabetes Association. Diabetes Care. 2016.39(Suppl 1). [facility] BUN SERPL-MCNC 14 9 - 24 mg/dL [facility] CREAT SERPL-MCNC 1.02 0.73 - 1.22 mg/dL [facility] SODIUM SERPL-SCNC 140 136 - 144 mmol/L [facility] POTASSIUM SERPL-SCNC 4.8 3.7 - 5.1 mmol/L [facility] CHLORIDE SERPL-SCNC 110(H) 98 - 107 mmol/L [facility] CO2 SERPL-SCNC 21(L) 22 - 30 mmol/L [facility] ANION GAP SERPL-SCNC 9 8 - 15 mmol/L [facility] CREATININE + EGFR PNL SERPLBLD 80 >=60 mL/min/1.7 3m??? [facility] Comment:Estimated Glomerular Filtration Rate (eGFR) is calculated using the 2020 CKD-EPI creatinine equation. This equation utilizes serum creatinine, sex, and age as parameters. The creatinine assay has traceable calibration to isotope dilution- mass spectrometry. Refer to KDIGO guidelines for clinical interpretation. In patients with unstable renal function, e.g. those with acute kidney injury, the eGFR may not accurately reflect actual GFR. 02/10/2025 9:48 AM EDT 02/10/2025 9:48 AM EDT Narrative CLIN[facility]NC - 02/10/2025 10:25 AM EDT Specimen Type: BLOOD SPECIMEN Ordering Facility: [facility] Address: [address] [place], [place] [id number] Original Ordering Provider: RA LEONARD us Generic External Data Provider CLINISYALON F inal Result Performing Organization Address City/State/[facility] Co de Phone Number CLINISYNC [facility] [address] [place] [address] * (ABNORMAL) [facility] CBC W AUTO DIFF BLD (02/10/2025 9:48 AM EDT) [facility] WBC # BLD AUTO 3.60(L) 3.70 - 11.00 k/uL [facility] RBC # BLD AUTO 3.69(L) 4.20 - 6.00 m/uL [facility] HGB BLD-MCNC 10.5(L) 13.0 - 17.0 g/dL [facility] HCT VFR BLD AUTO 33.6(L) 39.0 - 51.0 % [facility] MCV RBC AUTO 91.1 80.0 - 100.0 fL [facility] MCH RBC QN AUTO 28.5 26.0 - 34.0 pg [facility]CF [facility] MCHC RBC AUTO-MCNC 31.3 30.5 - 36.0 g/dL [facility] RDW RBC-RTO 15.9(H) 11.5 - 15.0 % [facility] PLATELET # BLD AUTO 213 150 - 400 k/uL [facility] PMV BLD AUTO 10.1 9.0 - 12.7 fL [facility] NEUTROPHILS/LEUK NFR BLD AUTO 56.9 % [facility] NEUTROPHILS # BLD AUTO 2.05 1.45 - 7.50 k/uL [facility] LYMPHOCYTES/[place] NFR BLD AUTO 13.6 % [facility] LYMPHOCYTES # BLD AUTO 0.49(L) 1.00 - 4.00 k/uL [facility] MONOCYTES/[place] NFR BLD AUTO 21.7 % [facility] MONOCYTES # BLD AUTO 0.78 <0.87 k/uL [facility] EOSINOPHIL/[place] NFR BLD AUTO 6.1 % [facility] CCF EOSINOPHIL # BLD AUTO 0.22 <0.46 k/uL [facility] BASOPHILS/[place] NFR BLD AUTO 1.1 % [facility]CF BASOPHILS # BLD AUTO 0.04 <0.11 k/uL [facility] IMM GRANULOCYTES/LEUK NFR BLD AUTO 0.6 % [facility] IMM GRANULOCYTES # BLD AUTO <0.03 <0.10 k/uL [facility] NRBC/100 WBC BLD-RTO 0.0 /100 WBC [facility] NRBC # BLD AUTO <0.01 <0.01 k/uL [facility] DIFFERENTIAL METHOD BLD Auto [facility] 02/10/2025 9:48 AM EDT 02/10/2025 9:48 AM EDT Narrative ASHLEY - 02/10/2025 10:00 AM EDT Specimen Type: BLOOD SPECIMEN Ordering Facility: [facility] Address: [address] [place] [address] Original Ordering Provider: RA LEONARD us Generic External Data Provider CLINISYNC F inal Result Performing Organization Address City/State/[facility] Co de Phone Number CLINISYNC [facility] [address] [place] [address] documented in this encounter Visit Diagnoses Not on filedocumented in this encounter Additional Health Concerns Assessment Noted Time PHQ-9 Depression Total Score: 1 11/24/19 25 10:00 AM EDT documented as of this encounter Care Teams Cordwainer Relationship Specialty Start Date End Date Rene Pandey MD PCP - General Family Medicine 01/24/23 Ra Leonard MD [address] [place] [address] [place] [address] Referring Physician Hematology and Oncology 11/23/24 Jean Madsen MD [address] [place] [address] [address], [place] [address] [place] [address] Referring Physician Cardiology 11/23/24 documented as of this encounter
--- OUTSIDE RECORDS SUMMARY | 2025-02-22 21:46 | XMS_ITS | Encounter Summary ---
Author Organization [facility] Address [address] [place] [id number] Care Team Providers Care Hot Die Press Operator Name Role Phone Rene Pandey MD Primary Care Provider Ra Silveira MD Unavailable [phone] Itzel Singh APRN.[facility] Unavailable [phone] Source Comments In the event this information is protected by the Federal Confidentiality of Alcohol and Drug AbusePatient Records regulations: The Federal rules restrict any use of the information to criminally investigate or prosecute any alcohol or drug abuse patient.[facility] Reason for Visit * Reason Comments Nm Pet Request Encounter Details Date Type Department Care Team (Late st Contact Info) Description 02/07/2025 Telephone Cancer Appts [facility] [place] [address] Ra Silveira MD [facility] [address] Nm Pet Request Social History Tobacco Use Types Packs/Day Years Used Date Smoking Tobacco: Never Smokeless Tobacco: Never Alcohol Use Standard Drinks/Week Comments Yes 0 (1 standard drink = 0.6 oz pur e alcohol) a few beers per day [facility] Utilities Answer Date Recorded In the [...] slept in a mcfp (including now)? No 10/31/2023 Housing Stability Vital Sign Answer [place] e Recorded In the last 12 months, was t here a time when you were not able to pay the mortgage or rent on time? No 11/02/2024 In the past 12 months, how m any times have you moved where you were living? 0 11/02/2024 At any time in the past 12 m [facility], were you homeless or living in a mcfp (including now)? No 11/02/2024 Area Deprivation Index Answer Date Clarence rded National Score (1-100), lower number is lower ri sk 63 08/07/2023 State Score (1-10), lower number is lower risk 4 08/07/2023 Data from: https://www.neighborhoodatlas.[facility]/. Last address used for calculation [address] [facility] [address] 08/07/2023 Sex and Gender Information Value Date Recorded Sex Assigned at Male 11/16/2023 7:12 PM EDT Legal Sex Male 3:01 PM EST Gender Identity Male 11/16/2023 7:12 PM EDT Sexual Orientation Straight 11/16/2023 7: 12 PM EDT documented as of this encounter Functional Status * Are you [...] La Torre RN * Do you have difficulty dressing [...] La Torre RN documented in this encounter Miscellaneous Notes * Telephone Encounter - Gen Naik - 02/08/2025 11:05 AM EDT SPOKE WITH PT SCHEDULED, NEXT TREATMENT IS 02/10, SCHEDULED 03/09, TREATMENT FOLLOWING DAY * Telephone Encounter - Vicki Cano - 02/07/2025 3:02 PM EDT DOTATATE Comments for Reservations Specialist: GA-68-/[place] March 09, 2025 Will the patient need anesthesia: NO Treatment: Sandostatin Long Acting Date of Last Treatment: 12/30/24 Date of Future Treatment: 02/10/25 Primary Insurance: Medicare B Medicare Primary Effective Date: 11-23-24 Date of Initial PET: N/A 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 Date of Subsequent PET scan: S1-08/03/24, S2-12/08/24, S3-pend ABN Required: No DX Imaging: PET Scan: 12/08/24 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] Lung mass [R91.8] Bone lesion [M89.9] Pathology: 08-13-23 Pancreas, uncinate mass, biopsy: -Well-differentiated neuroendocrine tumor, Labs: na Clinical Notes Reviewed: 01/20/25 Date of last: Sandostatin Additional Information/Imaging: N/A Is this the first Dotatate PET: No Date of last Dotatate Image: 12/08/24 Scan: positive Isotope used: GA-68-/[place] Positive Scan Schedule at place of last (DOS) [facility] or [facility] Negative Scan Schedule at ANY Dotatate site requested Isotope used: [facility] Copper CU-64 [place]/ GA-68 (NETSPOT) Dotatate Dotatate [id number] ([id number]) Gallium Dotatate (NetSpot) Route to: P PET EVENTS INTERN MC * Telephone Encounter - Jordyn Valerio - 02/07/2025 2:17 PM EDT This form is used for MAIN CAMPUS APPOINTMENTS ONLY. Is this request for a Main [place] PET scan appointment? Yes: Tear Down Man: Jordyn Valerio Who do we call to schedule this appointment? Patient Requesting Staff Ra Silveira Area Code + Phone/Pager: [phone] PET Orders (A delay in scheduling will result if the orders are not present at time of review): Internal ADDITIONAL ACTION MAY BE REQUIRED IF PATIENTS OON INSURANCE OR SELF PAY COVERAGE HAS NOT BEEN CLEARED FOR REQUESTED APPOINTMENT. Scheduling: Specific date/time (Requests should be greater then 10 buisness days): March 09, 2025 What account will this PET appointment be linked to? P/F Type of PET: Neuroendocrine Are there additional diagnostic CT scans required to be done at time ofPET scan? No Is the request for a PET MR ? No What account will diagnostic testing appointment be linked to? P/F Will the patient need anesthesia? NO Send requests to P [facility] documented in this encounter Plan of Treatment Upcoming Encounters Date Type Department Care Team (Latest Contact Info) Description 03/09/2025 8:00 AM EDT Appointment Molecular Imaging [address] [place] [address] DOTATATE PET PT 9303/09/2025 9:00 AM EDT Appointment Molecular Imaging [address] [place] [address] DOTATATE PET PT 0094 03/10/2025 12:45 PM EDT Office Visit [facility] [address] [place] [address] [place] [address] LAB AND SANDOSTATIN needs this date due to PET scan on 03/0903/10/2025 1:00 PM EDT Visit (SP) Office Hematology/Oncology [address] [place] [address] [place] [address] Ra Silveira MD [address] [place] [address] [place] [address] LAB AND SANDOSTATIN needs this date due to PET scan on 03/0903/10/2025 1:30 PM EDT [facility] Hematology/Oncology [address] [place] [address] [place] [address] LAB AND SANDOSTATIN needs this date due to PET scan on 03/09 documented as of this encounter Visit Diagnoses Not on filedocumented in this encounter Care Teams Hot Die Press Operator Relationship Specialty Start Date End Date Rene Pandey MD [address] [place] [address] PCP - General Family Medicine 08/05/23 Ra Silveira MD [address] [facility] [place] [place] [address] Hematology/Oncology 11/17/24 Itzel Singh APRN.RETAIL COORDINATOR [address] [place] [address] Nurse Practitioner Hematology/Oncology 01/22/25 documented as of this encounter
--- OUTSIDE RECORDS SUMMARY | 2025-02-22 21:46 | XMS_ITS | Encounter Summary ---
Author Organization [facility] Address [address] [place] [address] Care Team Providers Care Battery Container Tester Aluminum Name Role Phone Rene Pandey MD Unavailable [phone] Rene Pandey MD Primary Care Provider [phone] Rene Pandey MD Unavailable [phone] Ra Silveira MD Unavailable [phone] Jean Madsen MD Unavailable [phone] Encounter Details Date Type Department Care Team (Late st Contact Info) Description 08/27/2023 Orders Only [facility] [address] [facility] [place] [address] Rene Pandey MD [address] [facility] 100 [place] [address] (Fax) Benign essential hypertension Social History Tobacco Use Types Packs/Day Years Used Date Smoking Tobacco: Never Smokeless Tobacco: Never Alcohol Use Standard Drinks/Week Comments Yes 56 (1 standard drink = 0.6 oz pure alcohol) Caffeine intake : 1-2 cups perday PHQ-2 Answer Date Recorded Patient Health Questionnaire-2 Score 0 01/29/2023 Education Answer Date Recorded What is the highest level of school you have completed or the highest degree you have received? 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 file Not on file Not on file documented as of this encounter Plan of Treatment Upcoming Encounters Date Type Department Care Team (Late st Contact Info) Description 03/30/2025 1:30 PM EDT Office Visit [facility] [address] [place] [phone] Santosh Nuñez, DO [address] [place] [address] 04/13/2025 9:30 AM EDT Office Visit [facility] [address] [place] [address] Rene Pandey MD [address] [place] [address] (Fax) documented as of this encounter Visit Diagnoses Diagnosis Benign essential hypertension Essential hypertension, benign documented in this encounter Care Teams Battery Container Tester Aluminum Relationship Specialty Start Date End Date Rene Pandey MD [address] [place] [address] (Fax) PCP - [place] [employer] 11/23/20 01/23/24 Rene Pandey MD [address] [place] [address] (Fax) PCP - General Family Medicine 01/24/23 Rene Pandey MD [address] [place] [address] (Fax) PCP - [place] [employer] 03/25/24 04/24/24 Ra Silveira MD [address] [place] [address] [place] [address] Referring Physician Hematology and Oncology 11/23/24 Jean Madsen MD [facility] [address], [address] [place] [address] Referring Physician Cardiology 11/23/24 documented as of this encounter
--- OUTSIDE RECORDS SUMMARY | 2025-02-22 21:46 | XMS_ITS | Encounter Summary ---
Author Organization [facility] Address [address] [place] [address] Care Team Providers Care Caul Puller Name Role Phone Rene Pandey MD Unavailable [phone] Rene Pandey MD Primary Care Provider [phone] Rene Pandey MD Unavailable [phone] Ra Silveira MD Unavailable [phone] Jean Madsen MD Unavailable [phone] Encounter Details Date Type Department Care Team (Late st Contact Info) Description 07/28/2023 Abstract [facility] [address] [facility] [place] [address] Nohemy Linder MD [address] [facility] [address] [place] [address] Social History Tobacco Use Types Packs/Day Years [...] Start Date 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 Not on file Not on file documented as of this encounter Plan of Treatment Upcoming Encounters Date Type Department Care Team (Late st Contact Info) Description 03/30/2025 1:30 PM EDT Office Visit [facility] [address] [place] [phone] Santosh Nuñez, DO [address] [place] [address] 04/13/2025 9:30 AM EDT Office Visit [facility] [address] [place] [address] Rene Pandey MD [address] [place] [address] (Fax) documented as of this encounter Visit Diagnoses Not on filedocumented in this encounter Care Teams Caul Puller Relationship Specialty Start Date End Date Rene Pandey MD [address] [place] [address] (Fax) PCP - [place] [employer] 11/23/20 01/23/24 Rene Pandey MD [address] [place] [address] (Fax) PCP - General Family Medicine 01/24/23 Rene Pandey MD [address] [place] [address] (Fax) PCP - [place] [employer] 03/25/24 04/24/24 Ra Silveira MD [address] [place] [address] [place] [address] Referring Physician Hematology and Oncology 11/23/24 Jean Madsen MD [address] [place] [address] 2, [facility] [address] [place] [address] Referring Physician Cardiology 11/23/24 documented as of this encounter
--- OUTSIDE RECORDS SUMMARY | 2025-02-22 21:46 | XMS_ITS | Encounter Summary ---
Author Organization [facility] Address [address] [place] [address] Care Team Providers Care Global Chief Experience Officer Name Role Phone Rene Pandey MD Unavailable [phone] Rene Pandey MD Primary Care Provider [phone] Rene Pandey MD Unavailable [phone] Ra Silveira MD Unavailable [phone] Jean Madsen MD Unavailable [phone] Encounter Details Date Type Department Care Team (Late st Contact Info) Description 10/13/2023 Orders Only [facility] [address] [facility] [address] Rene Pandey MD [address] [address] (Fax) Leukocytosis, unspecified type (Primary Dx); Bacteremia; On total parenteral nutrition Social History Tobacco Use Types Packs/Day Years [...] often do you attend chur ch or baptism services? 1 to 4 times per year 10/14/2023 Do you belong to any clubs o r organizations such as catholic groups, unions, fraternal or athletic groups, or [...] Recorded Patient Health Questionnaire-2 Score 0 01/29/2023 [facility] - Occupational Stress Questionnaire Answer Date Recorded [...] slept in a correction (including now)? 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 Answer Date of Assessment Author 4 or more times a week 10/14/2023 10:48 AM EST M ychart, Generic * Q2: How many drinks containing alcohol do you have on a typical day when you are drinking? Answer Date of Assessment Author 5 or 6 10/14/2023 10:48 AM EST Mychart, Generic * Q3: How often do you have six or more drinks on one occasion? Answer Date of Assessment Author Weekly 10/14/2023 10:48 AM EST Mychart, Generic documented as of this encounter Plan of Treatment Upcoming Encounters Date Type Department Care Team (Late st Contact Info) Description 03/30/2025 1:30 PM EDT Office Visit [facility] [address] [place] [phone] Santosh Nuñez, DO [address] [place] [address] 04/13/2025 9:30 AM EDT Office Visit [facility] [address] [place] [address] Rene Pandey MD [address] [place] [address] (Fax) documented as of this encounter Visit Diagnoses Diagnosis Leukocytosis, unspecified type- Primary Bacteremia On total parenteral nutrition documented in this encounter Care Teams Global Chief Experience Officer Relationship Specialty Start Date End Date Rene Pandey MD [address] [facility] 100 [place] [address] (Fax) PCP - [place] [employer] 11/23/20 01/23/24 Rene Pandey MD [address] [facility] 100 [place] [address] (Fax) PCP - General Family Medicine 01/24/23 Rene Pandey MD [address] [place] [place] [facility] [address] [place] [address] (Fax) PCP - [place] [employer] 03/25/24 04/24/24 Ra Silveira MD [address] [place] [address] [place] [address] Referring Physician Hematology and Oncology 11/23/24 Jean Madsen MD [address] [place] [address] [address], [address] [place] [address] Referring Physician Cardiology 11/23/24 documented as of this encounter
--- OUTSIDE RECORDS SUMMARY | 2025-02-22 21:46 | XMS_ITS | Encounter Summary ---
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 Not on file Not on file documented as of this encounter Plan of Treatment Upcoming Encounters Date Type Department Care Team (Late st Contact Info) Description 03/30/2025 1:30 PM EDT Office Visit [facility] [address] [place] [phone] Santosh Nuñez, DO [address] [place] [address] 04/13/2025 9:30 AM EDT Office Visit [facility] CI FM [address] [facility] [address] [place] [address] Rene Pandey MD [address] [place] [facility] [address] [place] [address] documented as of this encounter Procedures Procedure Name Priority Date/Time Associated Diagnosis Comments ECHO 08/17/2023 1:08 PM EST documented in this encounter Results * ECHO (08/17/2023 1:08 PM EST) Anatomical Region Laterality Modality Other 08/17/2023 1:08 PM EST Narrative 08/18/2023 10:46 AM EST Echocardiography Report: Transthoracic Echo [facility] Date of service: 08/17/2023 1:08:04 PM Ordering physician: HOMERO GEE Indication: Hypotension Technologist: Marimar Curiel [facility] [place] Interpreting physician: Tito Gonsalves MD PATIENT: Name: AISHA CLINTON : 1955 Age: 68 years Gender: M Primary rhythm: sinus. Height: 175.30 cm BSA: 1.73 m? Weight: 61.24 kg BMI: 19.9 kg/m? Heart rate 75 bpm Blood pressure 117/51 mmHg Technically difficult exam due to Abdominal feeding tube. Color Doppler was utilized to interrogate the cardiac valves assessed and spectral Doppler was utilized to determine the flow velocities and pressure gradients reported in this exam. MEASUREMENTS: Value Indexed Normal Max aortic dimension 3.0 cm Ao < 3.8 Left atrium diameter 3.5 cm (M-Mode) Left atrial volume 37 ml (biplane A-L) 22 ml/m? Doris <= 34 LV ID (diastole) 4.2 cm (2D) 2.46 cm/m? LV ID (systole) 2.7 cm (2D) 1.55 cm/m? IVS, leaflet tips 1.0 cm (2D) Posterior wall thickness 1.1 cm (2D) Left ventricular mass 150 g (2D) 87 g/m? LV stroke volume 39 ml (2D biplane) LV end diastolic volume 68 ml (2D biplane) 39.3 ml/m? 34<=EDVi<75 LV end systolic volume 29 ml (2D biplane) 16.6 ml/m? Ejection Fraction 58 % (2D biplane) EF > 52 FINDINGS: LEFT VENTRICLE The left ventricle is normal in size. There is septal left ventricular hypertrophy. Left ventricular systolic function is normal. Grade I left ventricular diastolic dysfunction. Wall Motion: All scored segments are normal. RIGHT VENTRICLE The right ventricle is normal in size. Right ventricular systolic function is normal. Tricuspid annular displacement is 2.0 cm. Estimated right ventricular systolic pressure is 30 mmHg consistent with normal pulmonary artery pressures. Estimated right atrial pressure is 8 mmHg based on IVC assessment. LEFT ATRIUM The left atrial cavity is normal in size. RIGHT ATRIUM The right atrial cavity is normal in size. Inferior Vena Cava: The inferior vena cava appears normal measuring 1.6 cm. The vessel decreases less than 50 percent with inspiration. MITRAL VALVE The mitral valve leaflets are structurally normal. 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 The pressure half time is 78 msec. The peak mitral E/A ratio is 0.75. The mitral flow deceleration time is 268 msec. TRICUSPID VALVE The tricuspid valve leaflets are structurally normal. There is trace (trace - 1+) tricuspid valve regurgitation. AORTIC VALVE There is no aortic valve stenosis caused by dynamic LVOT obstruction. There is trace aortic valve regurgitation. There is no significant flow reversal. The peak gradient is 13 mmHg (peak velocity = 182.8 cm/s). The LVOT diameter is 2.0 cm. PULMONIC VALVE The pulmonic valve was not seen or not interrogated. There is trace pulmonic valve regurgitation. The peak gradient is 6 mmHg. AORTA The visualized aorta is normal in size. Measurements - Sinus: 3.0 cm. Sinotubular junction 2.1 cm. Mid ascending aorta 2.6 cm. INTERATRIAL SEPTUM There is no patent foramen ovale. PERICARDIUM There is no pericardial effusion. There is an epicardial fat pad. CONCLUSIONS: - Technically difficult exam due to Abdominal feeding tube. - Exam indication: Hypotension - The left ventricle is normal in size. There is septal left ventricular hypertrophy. Left ventricular systolic function is normal. EF = 58 ? 5% (2D biplane) Grade I left ventricular diastolic dysfunction. - The right ventricle is normal in size. Right ventricular systolic function is normal. - LEXIE with mild LVOT obstruction (LVOT gradient 25 mmHg with Valsalva). - There is no patent foramen ovale. - The patient has not had a prior CC echocardiographic exam for comparison. * * * Final * * * CC [facility] Image : [id number]^SyngoDynamics^SI^SUID Procedure Note Radiology, Radiologist, MD - 08/18/2023 Echocardiography Report: Transthoracic Echo [facility] Date of service: 08/17/2023 1:08:04 PM Ordering physician: HOMERO GEE Indication: Hypotension Technologist: Marimar Curiel [facility] [place] Interpreting physician: Tito Gonsalves MD PATIENT: Name: AISHA CLINTON : 1955 Age: 68 years Gender: M Primary rhythm: sinus. Height: 175.30 cm BSA: 1.73 m? Weight: 61.24 kg BMI: 19.9 kg/m? Heart rate 75 bpm Blood pressure 117/51 mmHg Technically difficult exam due to Abdominal feeding tube. Color Doppler was utilized to interrogate the cardiac valves assessed andspectral Doppler was utilized to determine the flow velocities andpressure gradients reported in this exam. MEASUREMENTS: Value Indexed Normal Max aortic dimension 3.0 cm Ao < 3.8 Left atrium diameter 3.5 cm (M-Mode) Left atrial volume 37 ml (biplane A-L) 22 ml/m? Doris <= 34 LV ID (diastole) 4.2 cm (2D) 2.46 cm/m? LV ID (systole) 2.7 cm (2D) 1.55 cm/m? IVS, leaflet tips 1.0 cm (2D) Posterior wall thickness 1.1 cm (2D) Left ventricular mass 150 g (2D) 87 g/m? LV stroke volume 39 ml (2D biplane) LV end diastolic volume 68 ml (2D biplane) 39.3 ml/m? 34<=EDVi<75 LV end systolic volume 29 ml (2D biplane) 16.6 ml/m? Ejection Fraction 58 % (2D biplane) EF > 52 FINDINGS: LEFT VENTRICLE The left ventricle is normal in size. There is septal left ventricular hypertrophy. Left ventricular systolic function is normal. Grade I left ventricular diastolic dysfunction. Wall Motion: All scored segments are normal. RIGHT VENTRICLE The right ventricle is normal in size. Right ventricular systolic function is normal. Tricuspid annulardisplacement is 2.0 cm. Estimated right ventricular systolic pressure is 30 mmHg consistent withnormal pulmonary artery pressures. Estimated right atrial pressure is 8mmHg based on IVC assessment. LEFT ATRIUM The left atrial cavity is normal in size. RIGHT ATRIUM The right atrial cavity is normal in size. Inferior Vena Cava: The inferior vena cava appears normal measuring 1.6 cm. The vesseldecreases less than 50 percent with inspiration. MITRAL VALVE The mitral valve leaflets are structurally normal. There is trace (trace -1+) late systolic mitral valve regurgitation likely related to HOCM withSAM. The pressure half time is 78 msec. The peak mitral E/A ratio is 0.75.The mitral flow deceleration time is 268 msec. TRICUSPID VALVE The tricuspid valve leaflets are structurally normal. There is trace(trace - 1+) tricuspid valve regurgitation. AORTIC VALVE There is no aortic valve stenosis caused by dynamic LVOT obstruction.There is trace aortic valve regurgitation. There is no significant flowreversal. The peak gradient is 13 mmHg (peak velocity = 182.8 cm/s). TheLVOT diameter is 2.0 cm. PULMONIC VALVE The pulmonic valve was not seen or not interrogated. There is tracepulmonic valve regurgitation. The peak gradient is 6 mmHg. AORTA The visualized aorta is normal in size. Measurements - Sinus: 3.0 cm. Sinotubular junction 2.1 cm. Mid ascendingaorta 2.6 cm. INTERATRIAL SEPTUM There is no patent foramen ovale. PERICARDIUM There is no pericardial effusion. There is an epicardial fat pad. CONCLUSIONS: - Technically difficult exam due to Abdominal feeding tube. - Exam indication: Hypotension - The left ventricle is normal in size. There is septal left ventricularhypertrophy. Left ventricular systolic function is normal. EF = 58 ? 5%(2D biplane) Grade I left ventricular diastolic dysfunction. - The right ventricle is normal in size. Right ventricular systolicfunction is normal. - LEXIE with mild LVOT obstruction (LVOT gradient 25 mmHg with Valsalva). - There is no patent foramen ovale. - The patient has not had a prior CC echocardiographic exam forcomparison. * * * Final * * * CC [facility] Image :[id number]^SyngoDynamics^SI^SUID us Generic External Data Provider [facility] Final Result documented in this encounter Visit Diagnoses Not on filedocumented in this encounter Care Teams Mission Systems Engineer Relationship Specialty Start Date End Date Rene Pandey MD [address] [address] PCP - [place] [employer] 11/23/20 01/23/24 Rene Pandey MD [address] [address] PCP - General Family Medicine 01/24/23 Rene Pandey MD [address] [address] PCP - [place] [employer] 03/25/24 04/24/24 Ra Silveira MD [address] [place] [address] [place] [address] Referring Physician Hematology and Oncology 11/23/24 Jean Madsen MD 703 [facility] 2, [address] [place] [address] Referring Physician Cardiology 11/23/24 documented as of this encounter
--- OUTSIDE RECORDS SUMMARY | 2025-02-22 21:46 | XMS_ITS | Encounter Summary ---
Author Organization [facility] Address [address] [place] [address] Care Team Providers Care Welfare Eligibility Worker Name Role Phone Rene Pandey MD Unavailable [phone] Rene Pandey MD Primary Care Provider [phone] Rene Pandey MD Unavailable [phone] Ra Silveira MD Unavailable [phone] Jean Madsen MD Unavailable [phone] Encounter Details Date Type Department Care Team (Late st Contact Info) Description 07/28/2023 Abstract [facility] [address] [place] [address] Gela Eller MD [address] [place] [address] Social History Tobacco Use Types Packs/Day Years [...] 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 Not on file Not on file documented as of this encounter Plan of Treatment Upcoming Encounters Date Type Department Care Team (Late st Contact Info) Description 03/30/2025 1:30 PM EDT Office Visit [facility] [address] [place] [address] Santosh Nuñez, DO [address] [place] [address] 04/13/2025 9:30 AM EDT Office Visit [facility] FM [address] [place] [address] Rene Pandey MD [address] [place] [address] (Fax) documented as of this encounter Visit Diagnoses Not on filedocumented in this encounter Care Teams Welfare Eligibility Worker Relationship Specialty Start Date End Date Rene Pandey MD [address] [place] [address] (Fax) PCP - [place] [employer] 11/23/20 01/23/24 Rene Pandey MD [address] [place] [address] (Fax) PCP - General Family Medicine 01/24/23 Rene Pandey MD [address] [place] [address] (Fax) PCP - [place] [employer] 03/25/24 04/24/24 Ra Silveira MD [address] [place] [address] [place] [address] Referring Physician Hematology and Oncology 11/23/24 Jean Madsen MD [address] [place] [address] 2, [facility] 250 [place] [address] Referring Physician Cardiology 11/23/24 documented as of this encounter
--- OUTSIDE RECORDS SUMMARY | 2025-02-22 21:46 | XMS_ITS | Encounter Summary ---
Author Organization [facility] Address [address] [place] [address] Care Team Providers Care Jewelry Bench Molder Name Role Phone Rene Pandey MD Unavailable [phone] Rene Pandey MD Primary Care Provider [phone] eRne Pandey MD Unavailable [phone] Ra Silveira MD Unavailable [phone] Jean Madsen MD Unavailable [phone] Encounter Details Date Type Department Care Team (Late st Contact Info) Description 07/25/2023 Abstract [facility] [address] [facility] [address] Kip Gutiérrez MD [address] [place] [address] Social History Tobacco Use Types Packs/Day Years [...] 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 on file Not on file documented as of this encounter Plan of Treatment Upcoming Encounters Date Type Department Care Team (Late st Contact Info) Description 03/30/2025 1:30 PM EDT Office Visit [facility] [address] [place] [address] Santosh Nuñez, DO [address] [place] [address] 04/13/2025 9:30 AM EDT Office Visit [facility] [address] [place] [address] Rene Pandey MD [address] [place] [address] (Fax) documented as of this encounter Visit Diagnoses Not on filedocumented in this encounter Care Teams Jewelry Bench Molder Relationship Specialty Start Date End Date Rene Pandey MD [address] [place] [address] (Fax) PCP - [place] [employer] 11/23/20 01/23/24 Rene Pandey MD [address] [place] [address] (Fax) PCP - General Family Medicine 01/24/23 Rene Pandey MD [address] [place] [address] (Fax) PCP - [place] [employer] 03/25/24 04/24/24 Ra Silveira MD [address] [place] [address] [place] [address] Referring Physician Hematology and Oncology 11/23/24 Jean Madsen MD 703 [facility] 2, [address] [place] [address] Referring Physician Cardiology 11/23/24 documented as of this encounter
--- OUTSIDE RECORDS SUMMARY | 2025-02-22 21:46 | XMS_ITS | Encounter Summary ---
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 Not on file Not on file documented as of this encounter Plan of Treatment Upcoming Encounters Date Type Department Care Team (Late st Contact Info) Description 03/30/2025 1:30 PM EDT Office Visit [facility] [address] [place] [address] Santosh Nuñez DO [address] [place] [address] 04/13/2025 9:30 AM EDT Office Visit [facility] CI FM 100 [address] [facility] 100 [place] [address] Rene Pandey MD 112 [facility] 100 [place] [address] documented as of this encounter Procedures Procedure Name Priority Date/Time Associated Diagnosis Comments CT PANCREAS/PELVIS W IVCON 10/01/2023 9:04 AM EST documented in this encounter Results * CT PANCREAS/PELVIS W IVCON (10/01/2023 9:04 AM EST) Anatomical Region Laterality Modality Other 10/01/2023 9:04 AM EST Narrative 10/01/2023 12:52 PM EST * * *Final Report* * * DATE OF EXAM: Oct 01 2023 9:04AM [facility] 0553 - CT PANCREAS/PELVIS W IVCON / [...] Date/Time: Oct 01 2023 11:48A Dictated by: PRATIK MOZNON DO This examination was interpreted and the report reviewed and electronically signed by: PRATIK MONZON DO on Oct 01 2023 12:50PM EST Thank you for allowing us to participate in the care of your patient. Should there be any questions regarding this interpretation, please call [phone]. If you are unable to reach us at the number above, please feel free to contact [facility] at [phone]. [id number]^[email or web address]^SI^ACN Procedure Note Radiology, Radiologist, - 10/02/2023 * * *Final Report* * * DATE OF EXAM: Oct 01 2023 9:04AM [facility] 0553 - CT PANCREAS/PELVIS W IVCON / [...] Date/Time: Oct 01 2023 11:48A Dictated by: PRATIK MONZON DO This examination was interpreted and the report reviewed and electronically signed by: PRATIK MONZON DO on Oct 01 2023 12:50PM EST Thank you for allowing us to participate in the care of your patient. Should there be any questions regarding this interpretation, please call [phone]. If you are unable to reach us at the number above, please feel free to contact [facility] at [phone]. [id number]^[email or web address]^SI^ACN us Generic External Data Provider [facility] Final Result documented in this encounter Visit Diagnoses Not on filedocumented in this encounter Care Teams Dump Grounds Checker Relationship Specialty Start Date End Date Rene Pandey MD [address] [address] PCP - [place] [employer] 11/23/20 01/23/24 Rene Pandey MD [address] [address] PCP - General Family Medicine 01/24/23 Rene Pandey MD [address] [address] PCP - [place] [employer] 03/25/24 04/24/24 Ra Silveira MD [address] [place] [address] [place] [address] Referring Physician Hematology and Oncology 11/23/24 Jean Madsen MD [address] [place] [address] [address], [address] [place] [address] Referring Physician Cardiology 11/23/24 documented as of this encounter
--- OUTSIDE RECORDS SUMMARY | 2025-02-22 21:46 | XMS_ITS | Encounter Summary ---
Author Organization [facility] Address [address] [place] [address] Care Team Providers Care Stripper Machine Operator Name Role Phone Rene Pandey MD Unavailable [phone] Rene Pandey MD Primary Care Provider [phone] Rene Pandey MD Unavailable [phone] Ra Silveira MD Unavailable [phone] Jean Madsen MD Unavailable [phone] Encounter Details Date Type Department Care Team (Late st Contact Info) Description 07/25/2023 Abstract [facility] [address] [place] [address] Kip Gutiérrez MD [address] [place] [address] Social History Tobacco Use Types [...] NB OPHT [address] [place] [address] Santosh Nuñez, DO [address] [place] [address] 04/13/2025 9:30 AM EDT Office Visit [facility] [address] [place] [address] Rene Pandey MD [address] [place] [address] (Fax) documented as of this encounter Visit Diagnoses Not on filedocumented in this encounter Care Teams Stripper Machine Operator Relationship Specialty Start Date End Date Rene Pandey MD [address] [place] [address] (Fax) PCP - [place] [employer] 11/23/20 01/23/24 Rene Pandey MD [address] [place] [address] (Fax) PCP - General Family Medicine 01/24/23 Rene Pandey MD [address] [place] [address] (Fax) PCP - [place] [employer] 03/25/24 04/24/24 Ra Silveira MD [address] [place] [address] [place] [address] Referring Physician Hematology and Oncology 11/23/24 Jean Madsen MD 703 [facility] 2, [address] [place] [address] Referring Physician Cardiology 11/23/24 documented as of this encounter
--- OUTSIDE RECORDS SUMMARY | 2025-02-22 21:46 | XMS_ITS | Encounter Summary ---
Author Organization [facility] Address [address] [place] [address] Care Team Providers Care Sales Representative Business Courses Name Role Phone Rene Pandey MD Unavailable [phone] Rene Pandey MD Primary Care Provider [phone] Rene Pandey MD Unavailable [phone] Ra Silveira MD Unavailable [phone] Jean Madsen MD Unavailable [phone] Encounter Details Date Type Department Care Team (Late st Contact Info) Description 07/22/2023 Abstract [facility] [address] [place] [address] Franc Lee MD [address] [place] [address] Social History Tobacco Use Types Packs/Day Years [...] 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 Not on file Not on file documented as of this encounter Plan of Treatment Upcoming Encounters Date Type Department Care Team (Late st Contact Info) Description 03/30/2025 1:30 PM EDT Office Visit [facility] [address] [place] [address] Santosh Nuñez, DO [address] [place] [address] 04/13/2025 9:30 AM EDT Office Visit [facility] [address] [place] [address] Rene Pandey MD [address] [place] [address] (Fax) documented as of this encounter Visit Diagnoses Not on filedocumented in this encounter Care Teams Sales Representative Business Courses Relationship Specialty Start Date End Date Rene Pandey MD [address] [place] [address] (Fax) PCP - [place] [employer] 11/23/20 01/23/24 Rene Pandey MD [address] [place] [address] (Fax) PCP - General Family Medicine 01/24/23 Rene Pandey MD [address] [place] [address] (Fax) PCP - [place] [employer] 03/25/24 04/24/24 Ra Silveira MD [address] [place] [address] [place] [address] Referring Physician Hematology and Oncology 11/23/24 Jean Madsen MD [address] [place] [address] [address], [address] [place] [address] Referring Physician Cardiology 11/23/24 documented as of this encounter
--- OUTSIDE RECORDS SUMMARY | 2025-02-22 21:46 | XMS_ITS | Encounter Summary ---
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 Not on file Not on file documented as of this encounter Plan of Treatment Upcoming Encounters Date Type Department Care Team (Late st Contact Info) Description 03/30/2025 1:30 PM EDT Office Visit [facility] [address] [place] [id number] Santosh Nuñez DO [address] [place] [address] 04/13/2025 9:30 AM EDT Office Visit [facility] [address] [place] [address] Rene Pandey MD [address] [place] [address] (Fax) documented as of this encounter Procedures Procedure Name Priority Date/Time Associated Diagnosis Comments [facility] BACTERIA BLD CULT Routine 08/28/2023 5:51 PM EST [facility] BACTERIA BLD CULT Routine 08/28/2023 5:51 PM EST ECG 12-LEAD 08/28/2023 5:28 PM EST documented in this encounter Results * [facility] BACTERIA BLD CULT (08/28/2023 5:51 PM EST) [facility] BACTERIA BLD CULT CULTURE, BLOOD: No growth 5 days [facility] 08/28/2023 5:51 PM EST 08/28/2023 11:06 PM EST Narrative ASHLEY - 09/03/2023 12:01 AM EST Original Ordering Provider: BOLIVAR BISWAS us Generic External Data Provider CLIN[facility] F inal Result [facility] [address] [facility] [address] [address] * [facility] BACTERIA BLD CULT (08/28/2023 5:51 PM EST) [facility] BACTERIA BLD CULT CULTURE, BLOOD: No growth 5 days [facility] 08/28/2023 5:51 PM EST 08/28/2023 11:07 PM EST Narrative ASHLEY - 09/03/2023 12:01 AM EST Original Ordering Provider: BOLIVAR BISWAS Generic External Data Provider ASHLEY Mcgowan inal Result ASHLEY PADILLA [address] [address] * ECG 12 lead (08/28/2023 5:28 PM EST) 08/28/2023 5:28 PM EST Narrative [facility] - 08/29/2023 12:45 PM EST Ventricular Rate : 86 BPM Atrial Rate : 86 BPM P-R Interval : 145 ms QRS Duration : 112 ms Q-T Interval : 364 ms QTC Calculation(Bazett) : 436 ms Calculated P [place] : 67 degrees Calculated R [place] : -11 degrees Calculated T [place] : 76 degrees Sinus rhythm LAE, consider biatrial enlargement Borderline intraventricular conduction delay Low voltage, extremity leads Abnormal R-wave progression, late transition Consider inferior infarct Borderline ST elevation, anterior leads Abnormal ECG 1729 Confirmed by MD BISWAS ANDREW ([id number]), editor & co founder ANURAG WARD ([id number]) on 08/29/2023 12:45:41 PM NAME : AISHA CLINTON PID : [id number] : 1955 Gender : Male Race : ORD : [id number] Procedure Date : Aug 28 2023 17:28:15 Edit Date : Aug 29 2023 12:45:46 Diagnosis: Sinus rhythm LAE, consider biatrial enlargement Borderline intraventricular conduction delay Low voltage, extremity leads Abnormal R-wave progression, late transition Consider inferior infarct Borderline ST elevation, anterior leads Abnormal ECG 1729 Confirmed by MD BISWAS ANDREW ([id number]), editor & co founder ANURAG WARD ([id number]) on 08/29/2023 12:45:41 PM Test Reason : Syncope Location : 402 : FVED [id number] Overread By : MD BISWAS ANDREW Edited By : ANURAG WARD Referred By : , Acquired by : [id number], Procedure Note Radiology, Radiologist, - 08/29/2023 Ventricular Rate : 86 BPM Atrial Rate : 86 BPM P-R Interval : 145 ms QRS Duration : 112 ms Q-T Interval : 364 ms QTC Calculation(Bazett) : 436 ms Calculated P [place] : 67 degrees Calculated R [place] : -11 degrees Calculated T [place] : 76 degrees Sinus rhythm LAE, consider biatrial enlargement Borderline intraventricular conduction delay Low voltage, extremity leads Abnormal R-wave progression, late transition Consider inferior infarct Borderline ST elevation, anterior leads Abnormal ECG 1729 Confirmed by MD BISWAS ANDREW ([id number]), editor & co founder ANURAG WARD ([id number]) on08/29/2023 12:45:41 PM NAME : AISHA CLINTON PID : [id number] : 1955 Gender : Male Race : ORD : [id number] Procedure Date : Aug 28 2023 17:28:15 Edit Date : Aug 29 2023 12:45:46 Diagnosis: Sinus rhythm LAE, consider biatrial enlargement Borderline intraventricular conduction delay Low voltage, extremity leads Abnormal R-wave progression, late transition Consider inferior infarct Borderline ST elevation, anterior leads Abnormal ECG 1729 Confirmed by MD BISWAS ANDREW ([id number]), editor & co founder ANURAG WARD ([id number]) on08/29/2023 12:45:41 PM Test Reason : Syncope Location : 402 : FVED [id number] Overread By : MD BISWAS ANDREW Edited By : ANURAG WARD Referred By : , Acquired by : [id number], us Generic External Data Provider ECG ORDERABLES F inal Result Performing Organization Address City/State/[facility] Co de Phone Number CCF-[facility] documented in this encounter Visit Diagnoses Not on filedocumented in this encounter Care Teams Elementary Secretary Relationship Specialty Start Date End Date Rene Pandey MD [address] [address] PCP - [place] [employer] 11/23/20 01/23/24 Rene Pandey MD [address] [address] PCP - General Family Medicine 01/24/23 Rene Pandey MD [address] [place] [address] [address] [place] [address] PCP - [employer] 03/25/24 04/24/24 Ra Silveira MD [address] [place] [address] [place] [address] Referring Physician Hematology and Oncology 11/23/24 Jean Madsen MD [address] [place] [address] 2, [facility] [address] [place] [address] Referring Physician Cardiology 11/23/24 documented as of this encounter
--- OUTSIDE RECORDS SUMMARY | 2025-02-22 21:46 | XMS_ITS | Encounter Summary ---
Author Organization [facility] Address [address] [place] [address] Care Team Providers Care Airways Operations Specialist Name Role Phone Rene Pandey MD Unavailable [phone] Rene Pandey MD Primary Care Provider + [phone] Rene Pandey MD Unavailable [phone] Ra Silveira MD Unavailable [phone] Jean Madsen MD Unavailable [phone] Encounter Details Date Type Department Care Team (Late st Contact Info) Description 06/10/2023 Abstract [facility] [address] [facility] [place] [address] Rene Pandey MD [address] [address] (Fax) Social History Tobacco Use Types Packs/Day Years Used Date Smoking Tobacco: Never Smokeless Tobacco: Never Tobacco Cessation:Counseling Given: Not Answered Alcohol Use Standard Drinks/Week Comments Yes 56 [...] 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 Not on file Not on file documented as of this encounter Plan of Treatment Upcoming Encounters Date Type Department Care Team (Late st Contact Info) Description 03/30/2025 1:30 PM EDT Office Visit [facility] [address] [place] [phone] Santosh Nuñez, DO [address] [place] [address] 04/13/2025 9:30 AM EDT Office Visit [facility] [address] [place] [address] Rene Pandey MD [address] [place] [address] (Fax) documented as of this encounter Visit Diagnoses Not on filedocumented in this encounter Care Teams Airways Operations Specialist Relationship Specialty Start Date End Date Rene Pandey MD [address] [place] [address] (Fax) PCP - [place] [employer] 11/23/20 01/23/24 Rene Pandey MD [address] [place] [address] (Fax) PCP - General Family Medicine 01/24/23 Rene Pandey MD [address] [place] [address] (Fax) PCP - [place] [employer] 03/25/24 04/24/24 Ra Silveira MD [address] [place] [address] [place] [address] Referring Physician Hematology and Oncology 11/23/24 Jean Madsen MD [address] [facility] 2, [address] [place] [address] Referring Physician Cardiology 11/23/24 documented as of this encounter
--- OUTSIDE RECORDS SUMMARY | 2025-02-22 21:46 | XMS_ITS | Encounter Summary ---
Author Organization [facility] Address [address] [place] [address] Care Team Providers Care Veterinary Technician Instructor Name Role Phone Rene Pandey MD Primary Care Provider + [phone] Ra Leonard MD Unavailable [phone] Jean Madsen MD Unavailable [phone] Encounter Details Date Type Department Care Team (Late st Contact Info) Description 06/03/2024 Clinisync Result Encounter [facility] External Department Unsolicited [...] often do you attend chur ch or synagogue services? 1 to 4 times per year 10/14/2023 Do you belong to any clubs o r organizations such as anabaptism groups, unions, fraternal or athletic groups, or [...] Recorded Patient Health Questionnaire-2 Score 0 01/29/2023 [facility] [place] [facility] - Occupational Stress [...] place to sleep or slept in a prison (including now)? 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 Not on file Not on file Not on file documented as of this encounter Plan of Treatment Upcoming Encounters Date Type Department Care Team (Late st Contact Info) Description 03/30/2025 1:30 PM EDT Office Visit [facility] [address] [place] [phone] Santosh Nuñez DO [address] [place] [address] 04/13/2025 9:30 AM EDT Office Visit [facility] [address] [facility] 100 [place] [address] Rene Pandey MD [address] [facility] [address] [place] [address] documented as of this encounter Procedures Procedure Name Priority Date/Time Associated Diagnosis Comments NM PET/CT WHOLE BODY SUBQ 06/03/2024 2:28 PM EDT [facility] CGA SERPL-MCNC Routine 06/03/2024 12 :46 PM EDT ALL VASOACTIVE INTESTINAL PEPTIDE Routine 06/03/2024 12:46 PM EDT documented in this encounter Results * (ABNORMAL) NM PET/CT WHOLE BODY SUBQ (06/03/2024 2:28 PM EDT) Anatomical Region Laterality Modality Other 06/03/2024 2:28 PM EDT Narrative 06/06/2024 2:38 PM EDT * * *Final Report* * * DATE OF EXAM: Jun 03 2024 2:28PM NRN [id number] - NM PET/CT WHOLE BODY SUBQ / PROCEDURE REASON: multiple diagnoses * * * * Physician Interpretation * * * * RESULT: FDG PET/CT SCAN 06/03/2024 12:39 PM: CLINICAL HISTORY: 68 years old Male with 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 Reference max SUV: Mediastinum blood pool activity: max SUV 2.5 TECHNIQUE: 9.6 mCi F-18 FDG IV, followed about 1 hour later by PET imaging from skull vertex to feet. Non contrast CT was performed for attenuation correction and anatomic localization purposes, and acute/emergent/actionable findings are described. [CSS] CT Dose-Length Product (DLP): 348 mGy*cm. CT Dose Reduction Employed: Yes BLOOD GLUCOSE: 99 mg/dL COMPARISON: None. CORRELATION: 05/13/[address] reports RESULT: Note- The SUV value is for reference purposes. Due to technical factors and uncontrolled variables, caution is advised when using SUV to differentiate malignant from nonmalignant processes, or to assess follow-up/treatment response. HEAD AND NECK: No pathologically enlarged or hypermetabolic cervical lymphadenopathy. Uptake in the oral cavity, tonsils, salivary glands, extraocular muscles is likely physiologic. Substantially limited evaluation of the intracranial structures due to the physiologic dc matter uptake. CHEST: Lungs and tracheobronchial tree: 1.7 cm left apex nodule with max SUV 2.1. Since FDG PET may have decreased sensitivity for pulmonary nodules <0.8 cm, follow-up chest CT may be performed, as clinically indicated. Pleura and pericardium: No significantly FDG avid pleural effusion. Mediastinum and Lymph nodes: No hypermetabolic axillary, hilar, or mediastinal lymphadenopathy. Chest wall: No hypermetabolic lesion. ABDOMEN AND PELVIS: Liver: Mildly heterogeneous uptake, no definite hypermetabolic lesion. Biliary: No focal FDG avidity. Spleen: No FDG avidity. No splenomegaly. Pancreas: Approximately 0.9 cm focal uptake at the junction of the pancreatic body and tail on 4:245 with max SUV 3.8. No definite abnormal about background uptake 2.2 cm pancreatic tail soft tissue lesion, max SUV 1.8, 4:225 Adrenals: No FDG avid lesion right adrenal. No FDG avid lesion left adrenal. tract: Within the limitation of the physiologic FDG excretion no hydronephrosis or grossly hypermetabolic lesion. GI tract: Areas of uptake are favored to be physiologic or due to medication effect, which limits evaluation of underlying lesions. Lymph nodes: No abdominal or pelvic hypermetabolic lymphadenopathy. Mesentery/Peritoneum: No focal hypermetabolic lesion. Vasculature: Vascular patency cannot be assessed due to lack of IV contrast. Pelvis: No focal hypermetabolic lesion. Abdominopelvic wall: No hypermetabolic lesion MUSCULOSKELETAL: There are no hypermetabolic osseous lesions. Degenerative changes, especially at the bilateral knees. 6.9 cm right gluteal carole presumed lipoma with nodularity posteriorly on 4:326, max SUV 1.7. 9.6 x 4.1 cm subcutaneous right gluteal hypodense soft tissue density with central photopenia Areas of physiologic muscle uptake. Associate Director Data & Analytics (topogram) images: No additional findings. IMPRESSION: Head and Neck: * No evidence of FDG avid neoplastic process Chest: * Left apex nonhypermetabolic 1.7 cm nodule. Tissue sampling/follow-up imaging, the exclude a low metabolic rate neoplastic process, as clinically indicated. ACTIONABLE RESULT * No hypermetabolic/pathologic lymphadenopathy Abdomen and pelvis: * Small area of increased uptake within the larger pancreatic body/uncinate findings described on the 05/13/[address] * No focal abnormal uptake at the pancreas tail lesion. Correlation with pancreas MRI, tissue sampling, and/or Dotatate PET/CT, as clinically indicated. * No hypermetabolic/pathologic lymphadenopathy. Musculoskeletal: * 6.9 cm RIGHT gluteus carole presumed lipoma, mild uptake at the nodularity. Relation with MSK MRI, as clinically indicated. * 9.6 cm RIGHT gluteal subcutaneous presumed hematoma. Based on the clinical history, further evaluation may be performed. * No hypermetabolic osseous lesion. NOTE: This report was created using voice recognition dictation software. If there is a concern for errors, please have the clinician contact the report author for clarification. ACTIONABLE RESULT: FOLLOW-UP Acuity: Actionable Findings: Thoracic-Lung nodules Routing code: [email or web address] Recommendation: Unlisted Recommendation (see report) Time Frame: At the discretion of the clinical team. COMMUNICATION: Results will be communicated with the ordering provider via [employer] staff message or phone message by [facility] Support Services within 2 business days of report finalization. --END OF FINDING-- Transcribe Date/Time: Jun 06 2024 11:11A Dictated by: ANN-MARIE ESTRADA MD This examination was interpreted and the report reviewed and electronically signed by: ANN-MARIE ESTRADA MD on Jun 06 2024 2:36PM EST Thank you for allowing us to participate in the care of your patient. Should there be any questions regarding this interpretation, please call [phone]. If you are unable to reach us at the number above, please feel free to contact [facility] at [phone]. 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 Reference max SUV: Mediastinum blood pool activity: max SUV 2.5 TECHNIQUE: 9.6 mCi F-18 FDG IV, followed about 1 hour later by PET imaging from skull vertex to feet. Non contrast CT was performed for attenuation correction and anatomic localization purposes, and acute/emergent/actionable findings are described. [CSS] CT Dose-Length Product (DLP): 348 mGy*cm. CT Dose Reduction Employed: Yes BLOOD GLUCOSE: 99 mg/dL COMPARISON: None. CORRELATION: 05/13/[address] reports RESULT: Note- The SUV value is for reference purposes. Due to technical factors and uncontrolled variables, caution is advised when using SUV to differentiate malignant from nonmalignant processes, or to assess follow-up/treatment response. HEAD AND NECK: No pathologically enlarged or hypermetabolic cervical lymphadenopathy. Uptake in the oral cavity, tonsils, salivary glands, extraocular muscles is likely physiologic. Substantially limited evaluation of the intracranial structures due to the physiologic dc matter uptake. CHEST: Lungs and tracheobronchial tree: 1.7 cm left apex nodule with max SUV 2.1. Since FDG PET may have decreased sensitivity for pulmonary nodules <0.8 cm, follow-up chest CT may be performed, as clinically indicated. Pleura and pericardium: No significantly FDG avid pleural effusion. Mediastinum and Lymph nodes: No hypermetabolic axillary, hilar, or mediastinal lymphadenopathy. Chest wall: No hypermetabolic lesion. ABDOMEN AND PELVIS: Liver: Mildly heterogeneous uptake, no definite hypermetabolic lesion. Biliary: No focal FDG avidity. Spleen: No FDG avidity. No splenomegaly. Pancreas: Approximately 0.9 cm focal uptake at the junction of the pancreatic body and tail on 4:245 with max SUV 3.8. No definite abnormal about background uptake 2.2 cm pancreatic tail soft tissue lesion, max SUV 1.8, 4:225 Adrenals: No FDG avid lesion right adrenal. No FDG avid lesion left adrenal. tract: Within the limitation of the physiologic FDG excretion no hydronephrosis or grossly hypermetabolic lesion. GI tract: Areas of uptake are favored to be physiologic or due to medication effect, which limits evaluation of underlying lesions. Lymph nodes: No abdominal or pelvic hypermetabolic lymphadenopathy. Mesentery/Peritoneum: No focal hypermetabolic lesion. Vasculature: Vascular patency cannot be assessed due to lack of IV contrast. Pelvis: No focal hypermetabolic lesion. Abdominopelvic wall: No hypermetabolic lesion MUSCULOSKELETAL: There are no hypermetabolic osseous lesions. Degenerative changes, especially at the bilateral knees. 6.9 cm right gluteal carole presumed lipoma with nodularity posteriorly on 4:326, max SUV 1.7. 9.6 x 4.1 cm subcutaneous right gluteal hypodense soft tissue density with central photopenia Areas of physiologic muscle uptake. Associate Director Data & Analytics (topogram) images: No additional findings. IMPRESSION: Head and Neck: * No evidence of FDG avid neoplastic process Chest: * Left apex nonhypermetabolic 1.7 cm nodule. Tissue sampling/follow-up imaging, the exclude a low metabolic rate neoplastic process, as clinically indicated. ACTIONABLE RESULT * No hypermetabolic/pathologic lymphadenopathy Abdomen and pelvis: * Small area of increased uptake within the larger pancreatic body/uncinate findings described on the 05/13/[address] * No focal abnormal uptake at the pancreas tail lesion. Correlation with pancreas MRI, tissue sampling, and/or Dotatate PET/CT, as clinically indicated. * No hypermetabolic/pathologic lymphadenopathy. Musculoskeletal: * 6.9 cm RIGHT gluteus carole presumed lipoma, mild uptake at the nodularity. Relation with MSK MRI, as clinically indicated. * 9.6 cm RIGHT gluteal subcutaneous presumed hematoma. Based on the clinical history, further evaluation may be performed. * No hypermetabolic osseous lesion. NOTE: This report was created using voice recognition dictation software. If there is a concern for errors, please have the clinician contact the report author for clarification. ACTIONABLE RESULT: FOLLOW-UP Acuity: Actionable Findings: Thoracic-Lung nodules Routing code: [email or web address] Recommendation: Unlisted Recommendation (see report) Time Frame: At the discretion of the clinical team. COMMUNICATION: Results will be communicated with the ordering provider via [employer] staff message or phone message by [facility] Support [facility] within 2 business days of report finalization. --END OF FINDING-- Transcribe Date/Time: Jun 06 2024 11:11A Dictated by: ANN-MARIE ESTRADA MD This examination was interpreted and the report reviewed and electronically signed by: ANN-MARIE ESTRADA MD on Jun 06 2024 2:36PM EST Thank you for allowing us to participate in the care of your patient. Should there be any questions regarding this interpretation, please call [phone]. If you are unable to reach us at the number above, please feel free to contact [facility] at [phone]. [id number]^[email or web address]^SI^ACN ACTIONABLE us Generic External Data Provider [facility] IMAGING Final Result * ALL VASOACTIVE INTESTINAL PEPTIDE (06/03/2024 12:46 PM EDT) VASOACTIVE INTESTINAL POLYPEPTIDE 25.0 0.0 - 89.1 pg/mL [facility] Comment: This test was developed and its performance characteristics determined by [facility]. It has not been cleared or approved by the U.S. Food and Drug Administration. This test was performed in a CLIA-certified laboratory and is intended for clinical purposes. Performed By: [facility] [address] [place] [address] Public Records Officer: Santosh Hollis MD, PhD CLIA Number: [id number] 06/03/2024 12:4 6 PM EDT 06/05/2024 1:56 AM EDT Narrative CLINISYNC - 06/07/2024 4:04 PM EDT Specimen Type: BLOOD SPECIMEN Ordering Facility: [facility] Address: [address] [place] [address] Original Ordering Provider: RA LEONARD Generic External Data Provider CLIN[facility]NC F inal Result Performing Organization Address [facility] de Phone Number CL[facility]NC CC [address] [place] [address] * [facility] CGA SERPL-MCNC (06/03/2024 12:46 PM EDT) Pathologist [facility] CGA SERPL-MCNC 137.7 <187.0 ng/mL [facility] Comment:The Chromogranin A t est was performed using the WellRight CgA II KRYPTOR method. Results obtained with different assay methods or kits cannot be used interchangeably. 06/03/2024 12:4 6 PM EDT 06/04/2024 12:01 AM EDT Narrative CLINISYNC - 06/07/2024 9:54 AM EDT Specimen Type: BLOOD SPECIMEN Ordering Facility: [facility] Address: [address] [place] [address] Original Ordering Provider: RA LEONARD Generic External Data Provider CLIN[facility]YNC F inal Result Performing Organization Address [facility]/State/ZIP Co de Phone Number ASHLEY [facility] [address] [facility] [address] [place] [address] documented in this encounter Visit Diagnoses Not on filedocumented in this encounter Care Teams Veterinary Technician Instructor Relationship Specialty Start Date End Date Rene Pandey MD PCP - General Family Medicine 01/24/23 Ra Leonard MD [address] [place] [address] [place] [address] Referring Physician Hematology and Oncology 11/23/24 Jean Madsen MD 703 [facility] 2, [address] [address] Referring Physician Cardiology 11/23/24 documented as of this encounter
--- OUTSIDE RECORDS SUMMARY | 2025-02-22 21:46 | XMS_ITS | Encounter Summary ---
Author Organization [facility] Address [address] [place] [address] Care Team Providers Care Mill Stenciler Name Role Phone Rene Pandey MD Primary Care Provider Ra Silveira MD Unavailable [phone] Itzel Singh APRN.MAINTAINER CENTRAL OFFICE Unavailable [phone] Source Comments In the event this information is protected by the Federal Confidentiality of Alcohol and Drug AbusePatient Records regulations: The Federal rules restrict any use of the information to criminally investigate or prosecute any alcohol or drug abuse patient.[facility] Encounter Details Date Type Department Care Team (Late st Contact Info) Description 10/14/2024 Patient Msg Financial Clearance [address] [place] [address] Provider, Cctiffanie 10/15/2024 appointment Social History Tobacco Use Types Packs/Day Years Used Date Smoking Tobacco: Never Smokeless Tobacco: Never Alcohol Use Standard Drinks/Week Comments Yes 0 (1 standard drink = 0.6 oz pur e alcohol) a few beers per day [facility] Utilities Answer Date Recorded In the past 12 months has [facility], gas, oil, or water [employer] threatened to shut off services in your home? No 10/31/2023 Overall Financial Resource Strain (CARDIA) Answe r Date Recorded How hard is it for you to pa y for the very basics like food, housing, medical care, and heating? Not hard at all 10/31/2023 PHQ-2 Answer Date Recorded PHQ-2 score 0 05/20/2024 Hunger Vital Sign Answer Date Recorded Within the past 12 months, y ou worried that your food would run out before you got the money to buy more. Never true 10/31/19 24 Within the past 12 months, t he food you bought just didn't last and you didn't have money to get more. Never true 10/31/2023 PRAPARE - Transportation Answer Date Re corded In the past 12 months, has l ack of transportation kept you from medical appointments or from getting medications? No 03/2024 In the past 12 months, has l ack of transportation kept you from meetings, work, or from getting things needed for daily living? No 10/31/2023 Housing Stability Vital Sign Answer [...] place to sleep or slept in a jail (including now)? No 10/31/2023 Area Deprivation Index Answer Date Clarence rded National Score (1-100), lower number is lower ri sk 63 08/07/2023 State Score (1-10), lower number is lower risk 4 08/07/2023 Data from: https://www.neighborhoodatlas.medicine.[facility].edu/. Last address used for calculation [address] 08/07/2023 Sex and Gender Information Value Date Recorded Sex Assigned at Male 11/16/2023 7:12 PM EDT Legal Sex Male 3:01 PM EST Gender Identity Male 11/16/2023 7:12 PM EDT Sexual Orientation Straight 11/16/2023 7: 12 PM EDT documented as of this encounter Functional Status * Are you deaf or do you have serious difficulty hearing? Answer Date of Assessment Author No 11/07/2023 2:39 PM DESTINEET Rubi Yates RN * Are you blind or do you have serious difficulty seeing, even when wearing glasses? Answer Date of Assessment Author No 11/07/2023 2:39 PM DESTINEET Rubi Yates RN * Do you have serious difficulty walking or climbing stairs? Answer Date of Assessment Author No 11/07/2023 2:39 PM DESTINEET Rubi Yates RN * Do you have difficulty dressing or bathing? Answer Date of Assessment Author No 11/07/2023 2:39 PM DESTINEET Rubi Yates RN * Because of a physical, mental, or emotional condition, do you have difficulty doing errands alone such as visiting a doctor's office or shopping? Answer Date of Assessment Author No 11/07/2023 2:39 PM Rubi Caal RN documented as of this encounter Mental Status * Because of a physical, mental, or emotional condition, do you have serious difficulty concentrating, remembering, or making decisions? Answer Entry Date Author No 11/07/2023 2:39 PM Rubi Caal RN documented in this encounter Plan of Treatment Upcoming Encounters Date Type Department Care Team (Latest Contact Info) Description 03/09/2025 8:00 AM EDT Appointment Molecular Imaging [address] [place], [place] [id number] DOTATATE PET PT 9303/09/2025 9:00 AM EDT Appointment Molecular Imaging [address] [place], [place] [id number] DOTATATE PET PT 9303/10/2025 12:45 PM EDT Office Visit [facility] [address] [place] [address] [place] [address] LAB AND SANDOSTATIN needs this date due to PET scan on 03/0903/10/2025 1:00 PM EDT Visit (SP) Office Hematology/Oncology [address] [place] [address] [place] [address] Ra Silveira MD [address] [place] [address] [place] [address] LAB AND SANDOSTATIN needs this date due to PET scan on 03/0903/10/2025 1:30 PM EDT [facility] Hematology/Oncology [address] [place] [address] LAB AND SANDOSTATIN needs this date due to PET scan on 03/09 documented as of this encounter Visit Diagnoses Not on filedocumented in this encounter Care Teams Mill Stenciler Relationship Specialty Start Date End Date Rene Pandey MD [address] [facility] [place] [address] PCP - General Family Medicine 08/05/23 Ra Silveira MD [address] [place] [address] Hematology/Oncology 11/17/24 Itzel Singh APRN.MAINTAINER CENTRAL OFFICE [address] [place] [address] Nurse Practitioner Hematology/Oncology 01/22/25 documented as of this encounter
--- OUTSIDE RECORDS SUMMARY | 2025-02-22 21:46 | XMS_ITS | Clinical Summary ---
Author Organization [facility] Address [address] [place] [address] Care Team Providers Care Mechanic Assistant Name Role Phone Rene Pandey MD Primary Care Provider Ra Leonard MD Unavailable Jean Madsen MD Unavailable [phone] Allergies No known active allergies Medications octreotide (SandoSTATIN) 20 MG injection Inject 20 mg into the shoulder, thigh, or buttocks See administration instructions Take to provider office for and inject 20mg IM every 3 weeks as directe 09/20/19 25 Active finasteride (Proscar) 5 MG tabletIndication s:Benign prostatic hyperplasia with weak urinary stream Take 1 tablet (5 mg) by mouth Daily Do not crush, chew, or split. 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 08/20/2023 Near syncope 08/15/2023 Therapeutic drug monitoring 08/08/2023 Alcoholism 01/28/2023 Asymptomatic varicose veins of both lower extrem ities 01/28/2023 Venous insufficiency of both lower extremities 0 01/28/2023 Benign essential hypertension 01/28/2023 Benign prostatic hyperplasia with lower urinary tract symptoms 01/28/2023 Cardiac dysrhythmia 01/28/2023 Chronic alcoholic gastritis 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 0 01/28/2023 Esophageal diverticulum 01/28/2023 08/07/20 Heart murmur 01/28/2023 Hyperlipidemia 01/28/2023 Hypertensive nephropathy 01/28/2023 Hypertensive ventricular hypertrophy without hea rt failure 01/28/2023 Microalbuminuria 01/28/2023 Mild mitral regurgitation 01/28/2023 Mild tricuspid regurgitation 01/28/2023 Overweight 01/28/2023 Primary osteoarthritis of both knees 01/28/2023 Psoriasis 01/28/2023 Stage 3a chronic kidney disease 01/28/2023 Vitamin D deficiency 01/28/2023 Osteoarthritis of knee 10/27/2018 Resolved Problems Problem Noted Date Diagnosed Date Resolved Date Generalized weakness 08/15/2023 024 On total parenteral nutrition (TPN) 08/08/2023 04/27/2024 Severe protein-calorie malnutrition (HHS-HCC) 08/08/20 23 04/27/2024 Failure to thrive in adult 08/07/2023 0 04/27/2024 Duodenal mass 07/30/2023 04/27/2024 Lower urinary tract symptoms due to benign prostatic hyperplasia 10/18/2020 02/01/2023 Encounters Date Type Department Care Team Description 02/10/2025 Clinisync Result Encounter [facility] Unsolicited Provider, Generic External Data 01/20/2025 Clinisync Result Encounter [facility] External Department Unsolicited Provider, Generic External Data 12/30/2024 Clinisync Result Encounter [facility] External Department Unsolicited Provider, Generic External Data 12/20/2024 Clinisync Result Encounter [facility] External Department Unsolicited Provider, Generic External Data 12/09/2024 Clinisync Result Encounter [facility] External Department Unsolicited Provider, Generic External Data 12/08/2024 Clinisync Result Encounter [facility] External Department Unsolicited Provider, Generic External Data 11/23/2024 10:30 AM EDT Office Visit [facility] [address] [facility] [address] [place] [address] Rene Pandey MD Welcome to Medicare preventive visit (Primary Dx); Advance directive in chart; Encounter for screening for other disorder; Screening for alcohol problem; Benign essential hypertension ; Hypertensive ventricular hypertrophy without heart failure ; Hypertensive nephropathy ; Stage 3a chronic kidney disease (CMS-HCC); Primary malignant neuroendocrine tumor of pancreas (HCC); 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); Mixed hyperlipidemia ; Alcoholism (HCC); Cardiovascular event risk 11/23/2024 Bamboo flowsheet [facility] [address] [facility] [address] [place] [address] Rene Pandey MD 11/23/2024 Travel from Last 3 Months Immunizations Immunization Administration Dates Next Due Tdap 02/16/2023 Family History Medical History Relation Name Comments No Known Problems Daughter Heart disease Father Dementia Mother Heart disease Mother Cancer Sibling lymph nodes Sister No Known Problems Son Relation Name Status Comments Daughter Alive 1 daughter Father Mother Sibling Sister 2 sisters Son Alive 2 sons Social History Tobacco Use Types Packs/Day Years Used Date Smoking Tobacco: Never Smokeless Tobacco: Never Tobacco Cessation:Counseling Given: Yes Alcohol Use Standard Drinks/Week Comments Yes 56 [...] How often do you attend chur or samaritan services? 1 to 4 times per year 10/14/2023 Do you belong to any clubs o r organizations such as denominational groups, unions, fraternal or athletic groups, or [...] Recorded Patient Health Questionnaire-2 Score 0 11/23/2024 [facility] - Occupational Stress Questionnaire Answer Date Recorded [...] place to sleep or slept in a [place] health care facility (including now)? No 10/14/2023 Housing Stability Vital [...] file Not on file Not on file Last Filed Vital Signs Vital Sign Reading Time Taken Comments Blood Pressure 120/74 11/23/2024 10:44 AM EDT Pulse 76 11/23/2024 10:44 AM EDT Temperature - - Respiratory Rate - - Oxygen Saturation 99% 11/23/2024 10:44 AM EDT Inhaled Oxygen Concentration - - Weight 76.8 kg (169 lb 4 oz) 11/23/2024 10:44 AM EDT Height 176.5 cm (5' 9.5 ) 11/23/2024 10:44 AM ED T Body Mass Index 24.64 11/23/2024 10:44 AM EDT Plan of Treatment Upcoming Encounters Date Type Department Care Team (Late st Contact Info) Description 03/30/2025 1:30 PM EDT Office Visit [facility] [address] [place] [id number] Santosh Nuñez DO [address] [place] [address] 04/13/2025 9:30 AM EDT Office Visit [facility] [address] [place] [address] Rene Pandey MD [address] [place] [address] Health Maintenance Due Date Last Done Comments CT Colonography 1955 FIT-DNA 1955 FIT 1955 FOBT 1955 Sigmoidoscopy 1955 Influenza Vaccine (#1) 2025 Medicare Annual Wellness (AWV) 11/23/2025 0 11/23/2024, 01/29/2023, 01/03/2022, Additional history exists Colonoscopy 11/01/2034 11/01/2024, 10/23, 11/01/2024, Additional history exists Colorectal Cancer Screening 11/01/2034 Pneumococcal Vaccine: 65+ Years Discontinued Procedures Procedure Name Priority Date/Time Associated Diagnosis Comments [facility] FERRITIN SERPL-MCNC Routine 02/10/2025 9:48 AM EDT [facility] IRON+TIBC PNL SERPL Routine 02/10/2025 9:48 AM EDT [facility] COMP METAB 2000 PNL SERPL Routine 02/10/2025 9:48 AM EDT [facility] CBC W AUTO DIFF BLD Routine 02/10/2025 9:48 AM EDT ALL VASOACTIVE INTESTINAL PEPTIDE Routine 01/20/2025 9:29 AM EDT [facility] CGA SERPL-MCNC Routine 01/20/2025 9: 29 AM EDT [facility] SEROTONIN BLD Routine 01/20/2025 9:2 9 AM EDT [facility] GASTRIN SERPL-MCNC Routine 9:29 AM EDT [facility] COMP METAB 2000 PNL SERPL Routine 01/20/2025 9:29 AM EDT [facility] CBC W AUTO DIFF BLD Routine 01/20/2025 9:29 AM EDT ALL VASOACTIVE INTESTINAL PEPTIDE Routine 12/30/2024 9:32 AM EDT [facility] CGA SERPL-MCNC Routine 12/30/2024 9: 32 AM EDT [facility] SEROTONIN BLD Routine 12/30/2024 9:3 2 AM EDT [facility] GASTRIN SERPL-MCNC Routine 9:32 AM EDT [facility] COMP METAB 2000 PNL SERPL Routine 12/30/2024 9:32 AM EDT [facility] CBC W AUTO DIFF BLD Routine 12/30/2024 9:32 AM EDT [facility] FERRITIN SERPL-MCNC Routine 12/20/2024 9:08 AM EDT [facility] FOLATE SERPL-MCNC Routine 12/20/2024 9:08 AM EDT [facility] IRON+TIBC PNL SERPL Routine 12/20/2024 9:08 AM EDT [facility] VIT B12 SERPL-MCNC Routine 9:08 AM EDT [facility] COMP METAB 2000 PNL SERPL Routine 12/20/2024 9:08 AM EDT [facility] CBC W AUTO DIFF BLD Routine 12/20/2024 9:08 AM EDT [facility] CGA SERPL-MCNC Routine 12/09/2024 8: 47 AM EDT ALL VASOACTIVE INTESTINAL PEPTIDE Routine 12/09/2024 8:47 AM EDT [facility] SEROTONIN BLD Routine 12/09/2024 8:4 7 AM EDT [facility] GASTRIN SERPL-MCNC Routine 8:47 AM EDT [facility] FOLATE SERPL-MCNC Routine 12/09/2024 8:47 AM EDT [facility] FERRITIN SERPL-MCNC Routine 12/09/2024 8:47 AM EDT [facility] VIT B12 SERPL-MCNC Routine 8:47 AM EDT [facility] IRON+TIBC PNL SERPL Routine 12/09/2024 8:47 AM EDT [facility] COMP METAB 2000 PNL SERPL Routine 12/09/2024 8:47 AM EDT [facility] CBC W AUTO DIFF BLD Routine 12/09/2024 8:47 AM EDT NM PET/CT NEUROENDOCRINE WB 12/08/2024 9:17 AM EDT COLONOSCOPY Routine 07/04/2021 12:00 PM EST Unspecified abdominal pain Abnormal findings on diagnostic imaging of other abdominal regions, including retroperitoneum Upper abdominal pain, unspecified from Last 3 Months or Most Recently Relevant to Health Maintenance Results * (ABNORMAL) [facility] IRON+TIBC PNL SERPL (02/10/2025 9:48 AM EDT) Only the most recent of3 resultswithin the time period is included. [facility] IRON SERPL-MCNC 250(H) 41 - 186 ug/dL [facility] CCF TIBC SERPL-MCNC 401(H) 232 - 386 ug/dL [facility] IRON/TIBC SERPL-SRTO 62.3(H) 15.0 - 57.0 % [facility] 02/10/2025 9:48 AM EDT 02/10/2025 2:02 PM EDT Narrative CLINISYNC - 02/10/2025 4:39 PM EDT Specimen Type: BLOOD SPECIMEN Ordering Facility: [facility] Address: [address] [id number] Original Ordering Provider: NATASHA RICHARDSON Generic External Data Provider CLINISYNC F inal Result Performing Organization Address [facility] Co de Phone Number ASHLEY [address]ADILLAF [address] [place] [phone] * [facility] FERRITIN SERPL-MCNC (02/10/2025 9:48 AM EDT) Only the most recent of3 resultswithin the time period is included. [facility] FERRITIN SERPL-MCNC 40.3 30.3 - 565.7 ng/mL [facility] 02/10/2025 9:48 AM EDT 02/10/2025 2:02 PM EDT Narrative CLINISYNC - 02/10/2025 4:45 PM EDT Specimen Type: BLOOD SPECIMEN Ordering Facility: [facility] Address: [address] [place] [address] Original Ordering Provider: NATASHA RICHARDSON Generic External Data Provider CLINISYNC F inal Result Performing Organization Address [facility] de Phone Number ASHLEY [facility] [address] [address] * (ABNORMAL) [facility] CBC W AUTO DIFF BLD (02/10/2025 9:48 AM EDT) Only the most recent of5 resultswithin the time period is included. [facility] WBC # BLD AUTO 3.60(L) 3.70 [...] 9:48 AM EDT Narrative CLINISYNC - 02/10/2025 10:00 AM EDT Specimen Type: BLOOD SPECIMEN Ordering Facility: [facility] Address: [address] [place] [address] Original Ordering Provider: RA LEONARD us Generic External Data Provider ASHLEY F inal Result CLINIS[facility]NC [facility] [address] [place] [address] * (ABNORMAL) [facility] COMP METAB 2000 PNL SERPL (02/10/2025 9:48 AM EDT) Only the most recent of5 resultswithin the time period is included. [facility] PROT SERPL-MCNC 6.5 6.3 - 8.0 [...] 74 - 99 mg/dL [facility] Comment: The [place] Diabetes Association (ADA) provides guidance for cutoff [...] Standards of Medical Care in Diabetes 2016, [place] Diabetes Association. Diabetes Care. 2016.39(Suppl 1). C[facility] [...] EDT Specimen Type: BLOOD SPECIMEN Ordering Facility: [facility] Address: [address] [place] [address] Original Ordering Provider: RA LEONARD Generic External Data Provider CLINIS[facility]NC F ina Result CLINIS[facility]NC [facility] [address] [place] [address] * (ABNORMAL) [facility] SEROTONIN BLD (01/20/2025 9:29 AM EDT) Only the most recent of3 resultswithin the time period is included. Pathologist [facility] SEROTONIN SERUM 1726(H) 50 - 220 ng/mL [facility] Comment: TEST INFORMATION: Serotonin, Serum This test was developed and its performance characteristics determined by [employer]. It has not been cleared or approved by the [place] Food and Drug Administration. This test was performed in a CLIA certified laboratory and is intended for clinical purposes. Performed By: [employer] [address] [place] [address] Computer Information Systems Professor: Snatosh Hollis MD, PhD CLIA Number: [id number] 01/20/2025 9:29 AM EDT 01/21/2025 4:09 PM EDT Narrative CLINISYNC - 01/23/2025 9:27 PM EDT Specimen Type: BLOOD SPECIMEN Ordering Facility: [facility] Address: [address] [place] [address] Original Ordering Provider: RA LEONARD us Generic External Data Provider CLINISYNC F inal Result Performing Organization Address City/[facility]/ZIP Co de Phone Number CLINISYNC CC [address] [place] [address] * [facility] GASTRIN SERPL-MCNC (01/20/2025 9:29 AM EDT) Only the most recent of3 resultswithin the time period is included. CC GASTRIN SERPL-MCNC 36.1 <115.0 pg/mL [facility] Comment:The Gastrin test was performed using the Siemens Immulite chemiluminescent immunometric method. Results obtained with different assay methods or kits cannot be used interchangeably. 01/20/2025 9:29 AM EDT 01/20/2025 2:33 PM EDT Narrative ASHLEY - 01/21/2025 11:29 AM EDT Specimen Type: BLOOD SPECIMEN Ordering Facility: [facility] Address: [address] [place] [address] Original Ordering Provider: RA LEONARD Generic External Data Provider CLINISYNC F inal Result Performing Organization Address [facility] Co de Phone Number ASHLEY CC [address] [facility] [address] [place] [address] * (ABNORMAL) [facility] CGA SERPL-MCNC (01/20/2025 9:29 AM EDT) Only the most recent of3 resultswithin the time period is included. CC CGA SERPL-MCNC 240.1(H) <187.0 ng/mL [facility] Comment:The Chromogranin A t est was performed using the [employer] CgA II KRYPTOR method. Results obtained with different assay methods or kits cannot be used interchangeably. 01/20/2025 9:29 AM EDT 01/20/2025 2:32 PM EDT Narrative MARQUITAISYALON - 01/24/2025 2:43 PM EDT Specimen Type: BLOOD SPECIMEN Ordering Facility: [facility] Address: [address] [place] [address] Original Ordering Provider: RA LEONARD Generic External Data Provider CLINISYNC F inal Result Performing Organization Address [facility] Co de Phone Number ASHLEY [address] [place] [phone] * ALL VASOACTIVE INTESTINAL PEPTIDE (01/20/2025 9:29 AM EDT) Only the most recent of3 resultswithin the time period is included. VASOACTIVE INTESTINAL POLYPEPTIDE <20.0 0.0 - 89.1 pg/mL [facility] Comment: This test was developed and its performance characteristics determined by [employer]. It has not been cleared or approved by the U.S. Food and Drug Administration. This test was performed in a CLIA-certified laboratory and is intended for clinical purposes. Performed By: [employer] [address] [place], [place] [id number] Computer Information Systems Professor: Santosh Hollis MD, PhD CLIA Number: [id number] 01/20/2025 9:29 AM EDT 01/21/2025 4:10 PM EDT Narrative CLINISYNC - 01/24/2025 6:05 PM EDT Specimen Type: BLOOD SPECIMEN Ordering Facility: [facility] Address: [address] [place] [address] Original Ordering Provider: RA LEONARD Generic External Data Provider CLINISYNC F inal Result Performing Organization Address [facility] de Phone Number ASHLEY [address]ADILLA [address] [place] [address] * [facility] VIT B12 SERPL-MCNC (12/20/2024 9:08 AM EDT) Only the most recent of2 resultswithin the time period is included. [facility] VIT B12 SERPL-MCNC 763 232 - 1,245 pg/mL [facility] 12/20/2024 9:08 AM EDT 12/20/2024 3:17 PM EDT Narrative CLINISYNC - 12/21/2024 6:33 AM EDT Specimen Type: BLOOD SPECIMEN Ordering Facility: [facility] Address: [address] [place] [address] Original Ordering Provider: RA LEONARD Generic External Data Provider LAXMINC Roslyn rosa Result Performing Organization Address [facility] de Phone Number ASHLEY [address] [phone] * [facility] FOLATE SERPL-MCNC (12/20/2024 9:08 AM EDT) Only the most recent of2 resultswithin the time period is included. [facility] FOLATE SERPL-MCNC 4.8 >4.7 ng/mL [facility] 12/20/2024 9:08 AM EDT 12/20/2024 3:17 PM EDT Narrative CLINISYNC - 12/21/2024 9:29 AM EDT Specimen Type: BLOOD SPECIMEN Ordering Facility: [facility] Address: [address] [place] [address] Original Ordering Provider: RA LEONARD Generic External Data Provider CLINSB F yoshil Result Performing Organization Address [facility] de Phone Number ASHLEY [address]ITH [address] [phone] * NM PET/CT NEUROENDOCRINE WB (12/08/2024 9:17 AM EDT) Anatomical Region Laterality Modality Other 12/08/2024 9:17 AM EDT Narrative 12/08/2024 2:14 PM EDT * * *Final Report* * * DATE OF EXAM: Dec 08 2024 9:17AM [facility] 0094 - NM PET/CT NEUROENDOCRINE WB [...] No radiotracer avid thyroid nodule. CHEST: Lungs and Pleura: Unchanged left apical 1.7 cm lung [...] penis, 1.9 cm, SUV 30.3, image 291 IMPRESSION: Since 08/03/2024, PRIMARY DISEASE SITE: * Unchanged SSTR2 expressing distant ilium lesion ANILA DISEASE: * Unchanged SSTR2 expressing retroperitoneal and mesenteric lymphadenopathy. 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 * Unchanged SSTR2 expressing diffuse pancreatic uptake. ADDITIONAL FINDINGS: * Unchanged mild tracer uptake in left apical pulmonary nodule. Krenning Score: 4 Winchman/Crane Operator: MIKY Transcribe Date/Time: Dec 08 2024 1:14P Dictated by : JESSIE BALDWIN MD This examination was interpreted and the report reviewed and electronically signed by: JESSIE BALDWIN MD on Dec 08 2024 2:12PM EST [id number] Procedure Note Radiology, Radiologist, - 12/08/2024 * * *Final Report* * * DATE OF EXAM: Dec 08 2024 9:17AM [facility] 0094 - NM PET/CT NEUROENDOCRINE WB [...] No radiotracer avid thyroid nodule. CHEST: Lungs and Pleura: Unchanged left apical 1.7 cm lung nodule with mildtracer uptake, SUV 2.1 Lymph Nodes: No radiotracer [...] penis, 1.9 cm, SUV 30.3, image 291 IMPRESSION: Since 08/03/2024, PRIMARY DISEASE SITE: * Unchanged SSTR2 expressing distant ilium lesion ANILA DISEASE: * Unchanged SSTR2 expressing retroperitoneal and mesenteric lymphadenopathy. 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 * Unchanged SSTR2 expressing diffuse pancreatic uptake. ADDITIONAL FINDINGS: * Unchanged mild tracer uptake in left apical pulmonary nodule. Krenning Score: 4 Winchman/Crane Operator: PSCB Transcribe Date/Time: Dec 08 2024 1:14P Dictated by : JESSIE BALDWIN MD This examination was interpreted and the report reviewed and electronically signed by: JESSIE BALDWIN MD on Dec 08 2024 2:12PM EST [id number] us Generic External Data Provider [facility] Final Result * Colonoscopy (07/04/2021 12:00 PM EST) Anatomical Region Laterality Modality Endoscopy 07/04/2021 12:0 0 PM EST Narrative 07/04/2021 12:00 PM EST PERFORMED AT [facility] LOCATION:[id number] Procedure Note CONVERSION, GENERIC - 01/08/2023 PERFORMED AT [facility] LOCATION:[id number] us Giuseppe Carl MD ENDOSCOPY PROCEDURE ORDERABL ES Final Result from Last 3 Months or Most Recently Relevant to Health Maintenance Insurance MEDICARE GENERIC COMMERCIAL Advance Directives Documents on File Type Date Recorded Patient Anchorer Expl anation Advance Directives and Living Will 02/05/2021 2017-03-14 Power Of Lending Advisor Care Teams Mechanic Assistant Relationship Specialty Start Date End Date Rene Pandey MD PCP - General Family Medicine 01/24/23 Ra Leonard MD [address] [place] [address] [place] [address] Referring Physician Hematology and Oncology 11/23/24 Jaen Madsen MD [address] [place] [address] 2, [address] [place] [address] Referring Physician Cardiology 11/23/24
--- OUTSIDE RECORDS SUMMARY | 2025-02-22 21:46 | XMS_ITS | Encounter Summary ---
Author Organization [facility] Address [address] [place] [address] Care Team Providers Care French Drawer Name Role Phone Rene Pandey MD Primary Care Provider + [phone] Ra Silveira MD Unavailable [phone] Jean Madsen MD Unavailable [phone] Encounter Details Date Type Department Care Team (Late st Contact Info) Description 05/13/2024 Clinisync Result Encounter [facility] Unsolicited [...] often do you attend chur ch or spiritism services? 1 to 4 times per year [...] Recorded Patient Health Questionnaire-2 Score 0 01/29/2023 [facility] [place] [facility] - Occupational Stress [...] place to sleep or slept in a long-term (including now)? 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 Not on file Not on file Not on file documented as of this encounter Plan of Treatment Upcoming Encounters Date Type Department Care Team (Late st Contact Info) Description 03/30/2025 1:30 PM EDT Office Visit [facility] [address] [place] [address] Santosh Nuñez DO [address] [place] [address] 04/13/2025 9:30 AM EDT Office Visit [facility] [address] [facility] [address] [place] [address] Rene Pandey MD [address] [facility] [address] [place] [address] documented as of this encounter Procedures Procedure Name Priority Date/Time Associated Diagnosis Comments CT CHEST W IV CONTRAST 05/13/2024 8:27 AM EDT documented in this encounter Results * CT chest w IV contrast (05/13/2024 8:27 AM EDT) Anatomical Region Laterality Modality Body, Chest Computed Tomogra phy 05/13/2024 8:27 AM EDT Narrative 05/13/2024 11:09 AM EDT * * *Final Report* * * DATE OF EXAM: May 13 2024 8:27AM [facility] 0539 - CT CHEST W IVCON / PROCEDURE REASON: multiple diagnoses * * * * Physician Interpretation * * * * RESULT: EXAMINATION: CHEST CT WITH CONTRAST 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 MQ: CTCW_6 Contrast: 100 mL Omnip[address] Radiation dose: Integrated Dose-length product (DLP) for this visit = 1186 mGy*cm CT Dose Reduction Employed: Automated exposure control(AEC) and iterative recon Comparison: None RESULT: Limitations: None. Lines, tubes, and devices: None. Lung parenchyma , airways, and pleural space: The trachea and major airways appear patent. Bilateral patchy nonspecific groundglass opacities are identified, right greater than left, likely infectious/inflammatory nature. An irregularly marginated 1.7 x 1.3 cm left apical subsolid nodular mass is appreciated, image 33, series 4. Given the patient's history, the possibility of metastases is not excluded. Lower neck, lymph nodes, and mediastinum: The visualized thyroid gland is unremarkable. No substantial supraclavicular or axillary lymphadenopathy. No substantial mediastinal or hilar adenopathy is identified. Heart, pericardium, and thoracic vessels: The thoracic aorta is normal in caliber. No substantial pericardial effusion. Bones/Soft Tissues: No osseous destructive process. A few, nonspecific sclerotic foci are noted involving mid to lower thoracic vertebral bodies and the sternum. Given the patient's history, the possibility of osseous metastases is not excluded. Upper Abdomen: A CT examination of the abdomen has been performed concurrently and will be dictated separately. Drilling Field Operator (topogram) images: No additional findings. IMPRESSION: 1. 1.7 cm irregularly marginated nodular mass at the left apex is appreciated, concerning for metastases. 2. No substantial intrathoracic adenopathy is appreciated. 3. A few scattered small osseous sclerotic foci are appreciated as above. Given the patient's history, the possibility of osseous metastases is not excluded. Transcribe Date/Time: May 13 2024 8:29A Dictated by: ANN-MARIE PLEITEZ MD This examination was interpreted and the report reviewed and electronically signed by: ANN-MARIE PLEITEZ MD on May 13 2024 11:07AM EST Thank you for allowing us to participate in the care of your patient. Should there be any questions regarding this interpretation, please call [phone]. If you are unable to reach us at the number above, please feel free to contact [facility] at [phone]. 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 MQ: CTCW_6 Contrast: 100 mL Omnipaque [address] Radiation dose: Integrated Dose-length product (DLP) for this visit = 1186 mGy*cm CT Dose Reduction Employed: Automated exposure control(AEC) and iterative recon Comparison: None RESULT: Limitations: None. Lines, tubes, and devices: None. Lung parenchyma , airways, and pleural space: The trachea and major airways appear patent. Bilateral patchy nonspecific groundglass opacities are identified, right greater than left, likely infectious/inflammatory nature. An irregularly marginated 1.7 x 1.3 cm left apical subsolid nodular mass is appreciated, image 33, series 4. Given the patient's history, the possibility of metastases is not excluded. Lower neck, lymph nodes, and mediastinum: The visualized thyroid gland is unremarkable. No substantial supraclavicular or axillary lymphadenopathy. No substantial mediastinal or hilar adenopathy is identified. Heart, pericardium, and thoracic vessels: The thoracic aorta is normal in caliber. No substantial pericardial effusion. Bones/Soft Tissues: No osseous destructive process. A few, nonspecific sclerotic foci are noted involving mid to lower thoracic vertebral bodies and the sternum. Given the patient's history, the possibility of osseous metastases is not excluded. Upper Abdomen: A CT examination of the abdomen has been performed concurrently and will be dictated separately. Drilling Field Operator (topogram) images: No additional findings. IMPRESSION: 1. 1.7 cm irregularly marginated nodular mass at the left apex is appreciated, concerning for metastases. 2. No substantial intrathoracic adenopathy is appreciated. 3. A few scattered small osseous sclerotic foci are appreciated as above. Given the patient's history, the possibility of osseous metastases is not excluded. Transcribe Date/Time: May 13 2024 8:29A Dictated by: ANN-MARIE PLEITEZ MD This examination was interpreted and the report reviewed and electronically signed by: ANN-MARIE PLEITEZ MD on May 13 2024 11:07AM EST Thank you for allowing us to participate in the care of your patient. Should there be any questions regarding this interpretation, please call [phone]. If you are unable to reach us at the number above, please feel free to contact [facility] at [phone]. [id number] us Generic External Data Provider IMG CT PROCEDURES Final Result documented in this encounter Visit Diagnoses Not on filedocumented in this encounter Care Teams French Drawer Relationship Specialty Start Date End Date Rene Pandey MD (Fax) PCP - General Family Medicine 01/24/23 Ra Silveira MD [address] [place] [address] [place] [address] Referring Physician Hematology and Oncology 11/23/24 Jean Madsen MD [address] [place] [address] [address] [place] [address] Referring Physician Cardiology 11/23/24 documented as of this encounter
--- OUTSIDE RECORDS SUMMARY | 2025-02-22 21:46 | XMS_ITS | Encounter Summary ---
Author Organization [facility] Address [address] [place] [address] Care Team Providers Care Geographic Information System Surveyor Name Role Phone Rene Pandey MD Primary Care Provider + [phone] Ra Leonard MD Unavailable [phone] Jean Mdasen MD Unavailable [phone] Encounter Details Date Type Department Care [...] any clubs o r organizations such as anabaptist groups, unions, fraternal or athletic groups, or [...] Recorded Patient Health Questionnaire-2 Score 0 01/29/2023 [facility] of Occupat ional Health - Occupational Stress [...] place to sleep or slept in a penitentiary (including now)? 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 file Not on file Not on file documented as of this encounter Plan of Treatment Upcoming Encounters Date Type Department Care Team (Late st Contact Info) Description 03/30/2025 1:30 PM EDT Office Visit [facility] [address] [place] [phone] Santosh Nuñez DO [address] [place] [address] 04/13/2025 9:30 AM EDT Office Visit [facility] [address] [facility] 100 [place] [address] Rene Pandey MD [address] [place] [address] documented as of this encounter Procedures Procedure Name Priority Date/Time Associated Diagnosis Comments [facility] SEROTONIN BLD Routine 05/13/2024 8:2 8 AM EDT [facility] Routine 05/13/2024 8 :28 AM EDT [facility] GASTRIN SERPL-MCNC Routine 05/13/2024 8:28 AM EDT [facility] CGA SERPL-MCNC Routine 05/13/2024 8: [address] PANCREAS/PELVIS W IVCON 05/13/2024 8:27 AM EDT documented in this encounter Results * MISC SEND OUT TST 1 (05/13/2024 8:28 AM EDT) [facility] TEST 1 Vasoactive Intestinal polypeptide (VIP) [facility] TEST RESULTS 1 View results in Scanned Documents link when available [facility] REFERRAL LAB 1 (DROP-DOWN) [facility] 05/13/2024 8:28 AM EDT 05/13/2024 10:33 PM EDT Narrative [facility] - 05/19/2024 1:15 PM EDT Specimen Type: BLOOD SPECIMEN Ordering Facility: External Submitter Address: , , Original Ordering Provider: RA LEONARD Generic External Data Provider MARQUITAISYNC F inal Result Performing Organization Address [facility] Co de Phone Number ASHLEY CC * [facility] CGA SERPL-MCNC (05/13/2024 8:28 AM EDT) [facility] CGA SERPL-MCNC 170.5 <187.0 ng/mL [facility] Comment:The Chromogranin A t est was performed using the Tequila MobileS CgA II KRYPTOR method. Results obtained with different assay methods or kits cannot be used interchangeably. 05/13/2024 8:28 AM EDT 05/13/2024 4:28 PM EDT Narrative [facility] - 05/17/2024 12:56 PM EDT Specimen Type: BLOOD SPECIMEN Ordering Facility: [facility] Address: [address] [place] [address] Original Ordering Provider: RA LEONARD us Generic External Data Provider CLINISYNC F inal Result Performing Organization Address [facility]/ZIP Co de Phone Number ASHLEY CC [address] [place], [place] [address]K [address] [address] * (ABNORMAL) [facility] SEROTONIN BLD (05/13/2024 8:28 AM EDT) [facility] SEROTONIN SERUM 1395(H) 50 - 220 ng/mL [facility] Comment: TEST INFORMATION: Serotonin, Serum This test was developed and its performance characteristics determined by [email or web address]. It has not been cleared or approved by the US Food and Drug Administration. This test was performed in a CLIA certified laboratory and is intended for clinical purposes. Performed By: [email or web address] [address] [id number] [employer]: Santosh Hollis MD, PhD CLIA Number: [id number] 05/13/2024 8:28 AM EDT 05/15/2024 10:11 AM EDT [facility] - 05/16/2024 6:03 PM EDT Specimen Type: BLOOD SPECIMEN Ordering Facility: [facility] Address: [address] [place] [address] Original Ordering Provider: RA LEONARD Generic External Data Provider CLINISYNC F inal Result Performing Organization Address [facility] de Phone Number CLINIS[facility]NC CC [address] [place] [address] * [facility] GASTRIN SERPL-MCNC (05/13/2024 8:28 AM EDT) Pathologist [facility] GASTRIN SERPL-MCNC 57.8 <115.0 pg/mL [facility] Comment:The Gastrin test was performed using the Siemens Immulite chemiluminescent immunometric method. Results obtained with different assay methods or kits cannot be used interchangeably. 05/13/2024 8:28 AM EDT 05/13/2024 4:28 PM EDT Narrative CL[facility] - 05/14/2024 11:24 AM EDT Specimen Type: BLOOD SPECIMEN Ordering Facility: [facility] Address: [address] [place] [address] Original Ordering Provider: RA LEONARD Generic External Data Provider CLINIS[facility] F inal Result Performing Organization Address [facility] de Phone Number CLINISYNC CC [address] [facility] [address] [place] [address] * CT PANCREAS/PELVIS W IVCON (05/13/2024 8:27 AM EDT) Anatomical Region Laterality Modality Other 05/13/2024 8:27 AM EDT Narrative 05/13/2024 11:10 AM EDT * * *Final Report* * * DATE OF EXAM: May 13 2024 8:27AM [facility] 0553 - CT PANCREAS/PELVIS W IVCON / PROCEDURE REASON: multiple diagnoses * * * * Physician Interpretation * * * * RESULT: EXAMINATION: CT ABDOMEN (PANCREAS) AND PELVIS WITH IV CONTRAST CLINICAL HISTORY: Malignant carcinoid tumor of ileum, 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 MQ: CTAP_3 Contrast: IV: 100 ml of Omnipaque 350 Oral: None CT Radiation dose: Integrated Dose-length product (DLP) for this visit = 1186 mGy*cm. CT Dose Reduction Employed: Automated exposure control(AEC) and iterative recon COMPARISON: 02/18/2024. RESULT: Liver: 1.0 cm hypodensity, image 26, series 9 stable. A previously identified hypodensity within the inferior right lobe is not clearly appreciated on this study. No new hepatic lesions. Confluent hypodense left lobe lesion likely relates to an area of focal fatty deposition, more conspicuous. Biliary Tract: No bile duct dilation. The gallbladder remains mildly distended, unchanged. Spleen: No splenomegaly. No mass. Pancreas: 2.2 x 1.9 cm nodular focus either involving or immediately adjacent to the pancreatic tail is stable, image 45, series 5. More superiorly, ovoid-shaped nodular focus interposed between the pancreatic tail and spleen measures 3.4 x 1.6 cm, image 42, series 5, stable. Confluent mesenteric jackelyn mass adjacent to the pancreatic head and uncinate process measures approximately 6.4 x 5.1 cm, not substantially changed. Adrenal glands: No mass. Kidneys: No enhancing mass or hydronephrosis. GI Tract: No dilation. Persistent focus of arterial enhancement involving a short segment of the distal ileum, more conspicuous when compared to the prior examination, image 81, series 5, now measuring approximately 2.1 cm in maximal length. There is been interval improvement in previously identified mural enhancement involving distal loops of small bowel within the anterior right lower quadrant. Lymph nodes: Partially calcified right lower quadrant adenopathy measuring approximately 1.9 x 1.9 cm, relatively stable in appearance, image 78, series 5. Peripancreatic/periportal adenopathy, largest area measuring approximately 2.7 x 1.8 cm, image 36, series 5, stable. Adenopathy adjacent to the superior mesenteric artery measuring approximately 1.9 x 1.6 cm, image 45, series 5, stable. Retroperitoneal adenopathy, relatively stable, largest area is within the left periaortic region, 2.1 x 1.7 cm and 2.2 x 1.7 cm, images 47 and 49, series 5, stable. No substantial pelvic adenopathy. Mesentery: Trace perihepatic and perisplenic ascites, stable. Persistent, mild diffuse mesenteric edema, unchanged. Poorly defined hypodensity adjacent to the posterior dome of the right lobe of the liver, image 53, series 10, the possibility of a peritoneal implant within this region is not excluded. Retroperitoneum: Stable appearance to infiltrative soft tissue density within the anterior left pararenal space, along the posterior margin of the pancreas. Vasculature: - Abdominal aorta and iliac arteries: No aneurysm - Celiac and SMA: Patent. Encasement, without stenosis of the superior mesenteric artery by mesenteric jackelyn metastases. 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 The portal vein is patent. The splenic vein is severely narrowed by peripancreatic jackelyn metastases, relatively stable in appearance. Perigastric and mesenteric collateral formation is again appreciated. - Hepatic veins: Patent. Pelvis: No free fluid or pelvic mass. No substantial inguinal adenopathy. Bones/Soft Tissues: Diffuse patchy sclerosis is appreciated throughout the visualized osseous structures, concerning for osseous metastases. Lower Thorax: A CT examination of the chest has been performed concurrently and will be dictated separately. Supervisor Stage Carpentry (topogram) images: No additional findings. IMPRESSION: 1. There is an overall stable appearance to peripancreatic metastatic nodules/adenopathy, as detailed above. 2. Extensive mesenteric and retroperitoneal adenopathy, not substantially changed. 3. Arterial enhancement/thickening involving a short segment of the distal ileum, more conspicuous in appearance from the prior examination, which may relate to the patient's known primary carcinoid tumor. Adjacent partially calcified right lower quadrant adenopathy, relatively stable in appearance. 4. Trace perihepatic and perisplenic ascites, the possibility of a peritoneal implant at the dome of the right lobe of the liver, unchanged. 5. Stable appearance to severe narrowing/occlusion of the superior mesenteric vein secondary to jackelyn metastases, stable appearance to significant narrowing of the splenic vein, as above. 6. Diffuse osseous metastases is again suspected, as above. Transcribe Date/Time: May 13 2024 8:42A Dictated by: ANN-MARIE PLEITEZ MD This examination was interpreted and the report reviewed and electronically signed by: ANN-MARIE PLEITEZ MD on May 13 2024 11:08AM EST Thank you for allowing us to participate in the care of your patient. Should there be any questions regarding this interpretation, please call [phone]. If you are unable to reach us at the number above, please feel free to contact [facility] at [phone]. 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 MQ: CTAP_3 Contrast: IV: 100 ml of Omnipaque 350 Oral: None CT Radiation dose: Integrated Dose-length product (DLP) for this visit = 1186 mGy*cm. CT Dose Reduction Employed: Automated exposure control(AEC) and iterative recon COMPARISON: 02/18/2024. RESULT: Liver: 1.0 cm hypodensity, image 26, series 9 stable. A previously identified hypodensity within the inferior right lobe is not clearly appreciated on this study. No new hepatic lesions. Confluent hypodense left lobe lesion likely relates to an area of focal fatty deposition, more conspicuous. Biliary Tract: No bile duct dilation. The gallbladder remains mildly distended, unchanged. Spleen: No splenomegaly. No mass. Pancreas: 2.2 x 1.9 cm nodular focus either involving or immediately adjacent to the pancreatic tail is stable, image 45, series 5. More superiorly, ovoid-shaped nodular focus interposed between the pancreatic tail and spleen measures 3.4 x 1.6 cm, image 42, series 5, stable. Confluent mesenteric jackelyn mass adjacent to the pancreatic head and uncinate process measures approximately 6.4 x 5.1 cm, not substantially changed. Adrenal glands: No mass. Kidneys: No enhancing mass or hydronephrosis. GI Tract: No dilation. Persistent focus of arterial enhancement involving a short segment of the distal ileum, more conspicuous when compared to the prior examination, image 81, series 5, now measuring approximately 2.1 cm in maximal length. There is been interval improvement in previously identified mural enhancement involving distal loops of small bowel within the anterior right lower quadrant. Lymph nodes: Partially calcified right lower quadrant adenopathy measuring approximately 1.9 x 1.9 cm, relatively stable in appearance, image 78, series 5. Peripancreatic/periportal adenopathy, largest area measuring approximately 2.7 x 1.8 cm, image 36, series 5, stable. Adenopathy adjacent to the superior mesenteric artery measuring approximately 1.9 x 1.6 cm, image 45, series 5, stable. Retroperitoneal adenopathy, relatively stable, largest area is within the left periaortic region, 2.1 x 1.7 cm and 2.2 x 1.7 cm, images 47 and 49, series 5, stable. No substantial pelvic adenopathy. Mesentery: Trace perihepatic and perisplenic ascites, stable. Persistent, mild diffuse mesenteric edema, unchanged. Poorly defined hypodensity adjacent to the posterior dome of the right lobe of the liver, image 53, series 10, the possibility of a peritoneal implant within this region is not excluded. Retroperitoneum: Stable appearance to infiltrative soft tissue density within the anterior left pararenal space, along the posterior margin of the pancreas. Vasculature: - Abdominal aorta and iliac arteries: No aneurysm - Celiac and SMA: Patent. Encasement, without stenosis of the superior mesenteric artery by mesenteric jackelyn metastases. 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 The portal vein is patent. The splenic vein is severely narrowed by peripancreatic jackelyn metastases, relatively stable in appearance. Perigastric and mesenteric collateral formation is again appreciated. - Hepatic veins: Patent. Pelvis: No free fluid or pelvic mass. No substantial inguinaladenopathy. Bones/Soft Tissues: Diffuse patchy sclerosis is appreciated throughout the visualized osseous structures, concerning for osseous metastases. Lower Thorax: A CT examination of the chest has been performed concurrently and will be dictated separately. Supervisor Stage Carpentry (topogram) images: No additional findings. IMPRESSION: 1. There is an overall stable appearance to peripancreatic metastatic nodules/adenopathy, as detailed above. 2. Extensive mesenteric and retroperitoneal adenopathy, not substantially changed. 3. Arterial enhancement/thickening involving a short segment of the distal ileum, more conspicuous in appearance from the prior examination, which may relate to the patient's known primary carcinoid tumor. Adjacent partially calcified right lower quadrant adenopathy, relatively stable in appearance. 4. Trace perihepatic and perisplenic ascites, the possibility of a peritoneal implant at the dome of the right lobe of the liver,unchanged. 5. Stable appearance to severe narrowing/occlusion of the superior mesenteric vein secondary to jackelyn metastases, stable appearance to significant narrowing of the splenic vein, as above. 6. Diffuse osseous metastases is again suspected, as above. Transcribe Date/Time: May 13 2024 8:42A Dictated by: ANN-MARIE PLEITEZ MD This examination was interpreted and the report reviewed and electronically signed by: ANN-MARIE PLEITEZ MD on May 13 2024 11:08AM EST Thank you for allowing us to participate in the care of your patient. Should there be any questions regarding this interpretation, please call [phone]. If you are unable to reach us at the number above, please feel free to contact [facility] at [phone]. [id number]^[email or web address]^ACN us Generic External Data Provider [facility] Final Result documented in this encounter Visit Diagnoses Not on filedocumented in this encounter Care Teams Geographic Information System Surveyor Relationship Specialty Start Date End Date Rene Pandey MD (Fax) PCP - General Family Medicine 01/24/23 Ra Leonard MD [address] [place] [address] [place] [address] Referring Physician Hematology and Oncology 11/23/24 Jean Madsen MD [address] [place] [address] [address] [address] [place] [address] Referring Physician Cardiology 11/23/24 documented as of this encounter
--- OUTSIDE RECORDS SUMMARY | 2025-02-22 21:46 | XMS_ITS | Encounter Summary ---
Author Organization [facility] Address [address] [place] [address] Care Team Providers Care Business Operations Specialist Name Role Phone Rene Pandey MD Primary Care Provider Ra Silveira MD Unavailable [phone] Itzel Singh [email or web address] ADMINISTRATOR Unavailable [phone] Source Comments In the event this information is protected by the Federal Confidentiality of Alcohol and Drug AbusePatient Records regulations: The Federal rules restrict any use of the information to criminally investigate or prosecute any alcohol or drug abuse patient.[facility] Encounter Details Date Type Department Care Team (Late st Contact Info) Description 06/07/2024 Patient Msg Pulmonary Medicine [address] [id number] [address] Result Notification Social History Tobacco Use Types Packs/Day Years Used Date Smoking Tobacco: Never Smokeless Tobacco: Never Alcohol Use Standard Drinks/Week Comments Yes 0 (1 standard drink = 0.6 oz pur e alcohol) a few beers per day [facility] Utilities Answer Date Recorded In the past 12 months has [employer], [employer], or water [employer] threatened to shut off services in your [...] place to sleep or slept in a mcc (including now)? No 10/31/2023 Area Deprivation Index Answer Date Clarence rded National Score (1-100), lower number is lower ri sk 63 08/07/2023 State Score (1-10), lower number is lower risk 4 08/07/2023 Data from: https://www.neighborhoodatlas.medicine.[employer].edu/. Last address used for calculation [address] 08/07/2023 Sex and Gender Information [...] of Assessment Author No 11/07/2023 2:39 PM Rbui Caal RN documented as of this encounter [...] 03/09/2025 8:00 AM EDT Appointment Molecular Imaging [address] [place] [address] DOTATATE PET PT 9303/09/2025 9:00 AM EDT Appointment Molecular Imaging [address] [place] [address] DOTATATE PET PT 9303/10/2025 12:45 PM EDT Office Visit [facility] [address] [place] [address] [place] [address] LAB AND SANDOSTATIN needs this date due to PET scan on 03/0903/10/2025 1:00 PM EDT Visit (SP) Office Hematology/Oncology [address] [place] [address] [place] [address] Ra Silveira MD [address] [place] [address] [place] [address] LAB AND SANDOSTATIN needs this date due to PET scan on 03/0903/10/2025 1:30 PM EDT [facility] Hematology/Oncology [address] [facility] [place] [address] LAB AND SANDOSTATIN needs this date due to PET scan on 03/09 documented as of this encounter Visit Diagnoses Not on filedocumented in this encounter Care Teams Business Operations Specialist Relationship Specialty Start Date End Date Rene Pandey MD [address] [facility] [address] PCP - General Family Medicine 08/05/23 Ra Silveira MD [address] [facility] [place] [address] Hematology/Oncology 11/17/24 Itzel Singh APRN.[email or web address] ADMINISTRATOR [address] [facility] [place] [address] Nurse Practitioner Hematology/Oncology 01/22/25 documented as of this encounter
--- OUTSIDE RECORDS SUMMARY | 2025-02-22 21:46 | XMS_ITS | Encounter Summary ---
Author Organization [facility] Address [address] [place] [address] Care Team Providers Care Secretary Bookkeeper Name Role Phone Rene Pandey MD Unavailable [phone] Rene Pandey MD Primary Care Provider [phone] Rene Pandey MD Unavailable [phone] Ra Silveira MD Unavailable [phone] Jean Madsen MD Unavailable [phone] Encounter Details Date Type Department Care Team (Late st Contact Info) Description 01/30/2023 Orders Only [facility] [address] [place] [address] Provider, MD Abundio [address] [phone] Social History Tobacco Use Types Packs/Day Years Used Date Smoking Tobacco: Never Smokeless Tobacco: Never Alcohol Use Standard Drinks/Week Comments Yes 56 (1 standard drink = 0.6 oz pu re alcohol) PHQ-2 Answer Date Recorded Patient Health Questionnaire-2 Score 0 01/29/2023 Sex and Gender Information Value Date Recorded Sex Assigned at Not on file Legal Sex Male 7:16 PM EDT Gender Identity Not on file Sexual Orientation Not on file COVID-19 Exposure Response Date Recorded In the last 10 days, have yo u been in contact with someone who was confirmed or suspected to have Coronavirus/COVID-19? No / Unsure 01/29/2023 10:09 AM EDT documented as of this encounter Plan of Treatment Upcoming Encounters Date Type Department Care Team (Late st Contact Info) Description 03/30/2025 1:30 PM EDT Office Visit [facility] [address] [place] [phone] Santosh Nuñez DO [address] [place] [address] 04/13/2025 9:30 AM EDT Office Visit [facility] [address] [place] [address] Rene Pandey MD [address] [facility] 100 [place] [address] (Fax) documented as of this encounter Procedures Procedure Name Priority Date/Time Associated Diagnosis Comments CBC Routine 01/15/2023 7:39 AM EDT LIPID PANEL Routine 01/15/2023 7:39 AM EDT documented in this encounter Results * CBC (01/15/2023 7:39 AM EDT) Blood Venous blood specimen / Unknown Historical Provider LAB BLOOD ORDERABLES Yara l Result * Lipid panel (01/15/2023 7:39 AM EDT) Blood Venous blood specimen / Unknown Historical Provider LAB BLOOD ORDERABLES Yara l Result documented in this encounter Visit Diagnoses Not on filedocumented in this encounter Care Teams Secretary Bookkeeper Relationship Specialty Start Date End Date Rene Pandey MD [address] [facility] 100 [place] [address] (Fax) PCP - [employer] 11/23/20 01/23/24 Rene Pandey MD [address] [facility] 100 [place] [address] PCP - General Family Medicine 01/24/23 Rene Pandey MD [address] [facility] 100 [place] [address] PCP - [employer] 03/25/24 04/24/24 Ra Silveira MD [address] [place] [address] [place] [address] Referring Physician Hematology and Oncology 11/23/24 Jean Madsen MD [address] [place] [address] 2, [facility] [address] [place] [address] Referring Physician Cardiology 11/23/24 documented as of this encounter
--- OUTSIDE RECORDS SUMMARY | 2025-02-22 21:46 | XMS_ITS | Encounter Summary ---
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 [address] [place] [address] documented as of this encounter Procedures Procedure Name Priority Date/Time Associated Diagnosis Comments ECG 12-LEAD 08/08/2023 1:19 PM EST documented in this encounter Results * ECG 12 lead (08/08/2023 1:19 PM EST) 08/08/2023 1:19 PM EST Narrative [facility] - 08/13/2023 4:21 PM EST Ventricular Rate : 76 BPM Atrial Rate : 76 BPM P-R Interval : 161 ms QRS Duration : 105 ms Q-T Interval : 404 ms QTC Calculation(Bazett) : 455 ms Calculated P [place] : 61 degrees Calculated R [place] : -53 degrees Calculated T [place] : 34 degrees Sinus rhythm Abnormal R-wave progression, late transition Left ventricular hypertrophy Inferior infarct, old Abnormal ECG Confirmed by APRYL RUCKER MD ([id number]) on 08/13/2023 4:21:15 PM NAME : AISHA CLINTON PID : [id number] : 1955 Gender : Male Race : ORD : [id number] Procedure Date : Aug 08 2023 13:19:51 Edit Date : Aug 13 2023 16:21:17 Diagnosis: Sinus rhythm Abnormal R-wave progression, late transition Left ventricular hypertrophy Inferior infarct, old Abnormal ECG Confirmed by APRYL RUCKER MD ([id number]) on 08/13/2023 4:21:15 PM Test Reason : Pre-OP Location : 400 : FVEKG PK3A Overread By : APRYL RUCKER MD Edited By : APRYL RUCKER MD Referred By : , Acquired by : ALDEN KING Procedure Note Radiology, Radiologist, MD - 08/13/2023 Ventricular Rate : 76 BPM Atrial Rate : 76 BPM P-R Interval : 161 ms QRS Duration : 105 ms Q-T Interval : 404 ms QTC Calculation(Bazett) : 455 ms Calculated P Glen[place] : 61 degrees Calculated R [place] : -53 degrees Calculated T [place] : 34 degrees Sinus rhythm Abnormal R-wave progression, late transition Left ventricular hypertrophy Inferior infarct, old Abnormal ECG Confirmed by APRYL RUCKER MD ([id number]) on 08/13/2023 4:21:15 PM NAME : AISHA CLINTON PID : [id number] : 1955 Gender : Male Race : ORD : [id number] Procedure Date : Aug 08 2023 13:19:51 Edit Date : Aug 13 2023 16:21:17 Diagnosis: Sinus rhythm Abnormal R-wave progression, late transition Left ventricular hypertrophy Inferior infarct, old Abnormal ECG Confirmed by APRYL RUCKER MD ([id number]) on 08/13/2023 4:21:15 PM Test Reason : Pre-OP Location : 400 : FVEKG PK3A Overread By : APRYL RUCKER MD Edited By : APRYL RUCKER MD Referred By : , Acquired by : ALDEN KING us Generic External Data Provider ECG ORDERABLES F inal Result [facility] documented in this encounter Visit Diagnoses Not on filedocumented in this encounter Care Teams Roof Shingler Relationship Specialty Start Date End Date Rene Pandey MD [address] [place] [address] [address] PCP - [place] [employer] 11/23/20 01/23/24 Rene Pandey MD [address] [place] [address] [place] [address] PCP - General Family Medicine 01/24/23 Rene Pandey MD [address] [place] [address] [place] [address] PCP - [place] [employer] 03/25/24 04/24/24 Ra Silveira MD [address] [place] [address] [place] [address] Referring Physician Hematology and Oncology 11/23/24 Jean Madsen MD [address] [place] [address] 2, [address] [place] [address] Referring Physician Cardiology 11/23/24 documented as of this encounter
--- OUTSIDE RECORDS SUMMARY | 2025-02-22 21:46 | XMS_ITS | Encounter Summary ---
Author Organization [facility] Address [address] [place] [address] Care Team Providers Care Chemical Engineering Intern Name Role Phone Rene Pandey MD Primary Care Provider + [phone] Ra Silveira MD Unavailable [phone] Jean Madsen MD Unavailable [phone] Encounter Details Date Type Department Care Team (Late st Contact Info) Description 08/03/2024 Clinisync Result Encounter [facility] External Department Unsolicited [...] often do you attend chur ch or mandaen services? 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 on file Not on file Not on file documented as of this encounter Plan of Treatment Upcoming Encounters Date Type Department Care Team (Late st Contact Info) Description 03/30/2025 1:30 PM EDT Office Visit [facility] [address] [place] [address] Santosh Nuñez DO [address] [place] [address] 04/13/2025 9:30 AM EDT Office Visit [facility] 100 [address] [facility] 100 [place] [address] Rene Pandey MD 112 [facility] [address] [place] [address] documented as of this encounter Procedures Procedure Name Priority Date/Time Associated Diagnosis Comments NM PET/CT NEUROENDOCRINE WB 08/03/2024 8:45 AM EST documented in this encounter Results * NM PET/CT NEUROENDOCRINE WB (08/03/2024 8:45 AM EST) Anatomical Region Laterality Modality Other 08/03/2024 8:45 AM EST Narrative 08/04/2024 1:03 PM EST * * *Final Report* * * DATE OF EXAM: Aug 03 2024 8:45AM N 0094 - NM PET/CT NEUROENDOCRINE WB / PROCEDURE REASON: multiple diagnoses * * * * Physician Interpretation * * * * EXAMINATION: SOMATOSTATIN RECEPTOR PET-CT CLINICAL HISTORY: 68 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 The patient is status post palliative GJ bypass on 10/29/2023 EXAM CATEGORY: Subsequent treatment strategy. TECHNIQUE: Radiopharmaceutical [...] some pathology. * CT Dose-Length Product (DLP): 281 mGy*cm * CT Dose Reduction Employed: Yes * Injection site: Right Hand * Injected activity: 4.7 mCi * Uptake Time: 61 minutes * Radiopharmaceutical: Ga-68 Dotatate COMPARISON: FDG PET/CT 06/03/2024 CORRELATION: CT 05/13/2024, 10/01/2023, 09/02/2023 RESULT: REFERENCES: Dotatate uptake serves as a surrogate marker for somatostatin receptor 2 (SSTR2) expression. All reported standardized uptake values represent maximum SUV (SUVmax) per body weight, unless otherwise specified. SUV Reference Values: * Background Liver: SUVmax 6.9 * Background Spleen: SUVmax 18.7 Localizer Images: No additional findings. HEAD AND NECK: Head: No radiotracer avid lesion or mass effect in the intracranial compartment. Aerodigestive Tract: No radiotracer avid lesion. Lymph Nodes: Stable size of multiple tracer avid left supraclavicular lymph nodes, most prominent lymph node for example 0.8 cm inferior most noted adjacent to the thyroid, max SUV 33.2 (4:95). Neck Soft Tissues: No radiotracer avid thyroid nodule. CHEST: Lungs and Pleura: Stable left apical 1.7 cm lung nodule with minimal uptake SUV max 1.6 (4:108). Lymph Nodes: No radiotracer avid lymphadenopathy. Mediastinum: No radiotracer avid mass. Cardiovascular: Blood pool activity. No pericardial effusion. Normal heart size. Chest Wall: No radiotracer avid soft tissue lesion. ABDOMEN AND PELVIS: Hepatobiliary: No radiotracer avid lesion. No measurable mass. Spleen: No radiotracer avid lesion. No splenomegaly. Pancreas: Patchy, near complete involvement of the entire pancreas which demonstrates marked tracer uptake for example max SUV of 38.2 in the distal tail and max SUV of 40 in the head. Adrenals: No radiotracer avid nodule. Urinary Tract: Physiologic radiotracer excretion in the renal collecting systems and urinary bladder. No hydronephrosis. Nonobstructing 5 mm calculus at the left UVJ (4:71). GI Tract: Slight increased size of distal iliac tracer avid intramural lesion now measuring 2.0 x 1.8 cm, mass SUV 23.7 (4:223), previously 1.9 x 1.3 cm. Additionally slight increased size of adjacent partially calcified nodule now measuring 2.0 x 1.8 cm, max SUV 28.2 (4:218), previously 1.8 x 1.7 cm. 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 No dilated bowel. Peritoneum and lymph nodes: Since 06/03/2024, overall worsening of abdominopelvic peritoneal and retroperitoneal tracer avid metastases with increased size of multiple lesions as well as scattered new tracer avid lesions, for example: * New tracer avid retrocrural lesions for example 0.6 cm lesion on the right, SUV 11.6 (4:171) * Increased size of peripancreatic central masslike conglomeration measuring 7.4 x 6.5 cm, max SUV 40 (4:198), previously 7.0 x 6 cm. * Increased size of 2.1 x 1.4 cm left of midline mesenteric node, max SUV 24.4 (4:2 9), previously 2.0 x 1.4 cm. * Increased size of 1.8 x 1 cm lesion adjacent to the left base of penis, max SUV 30.3 (4:29), previously 1.5 x 0.7 cm * Stable size of 0.4 cm lesion within the left ischioanal fossa fat, axial SUV 6.1 (4:26). Vasculature: Blood pool activity. Pelvic Organs: No radiotracer avid lesion. MUSCULOSKELETAL: Bones: Newly apparent multiple tracer avid osseous lesions without imaging correlates in the bilateral bony pelvis and multiple bilateral ribs, for example: * Anterior right eighth rib, max SUV 5.6 (4:178) * Right posterior iliac bone, max SUV 17 (4:238) Soft Tissues: Stable right gluteal carole lipoma IMPRESSION: PRIMARY DISEASE SITE: * Slight increased size of distal ileum metabolically avid lesion with adjacent partially calcified implant representing biopsy-proven neuroendocrine tumor. ANILA DISEASE: * Overall worsened abdominopelvic lymph node metastases with multiple new tracer avid nodes. * Left supraclavicular tracer avid lymph nodes representing metastasis. METASTATIC DISEASE: * Patchy, near complete tracer uptake throughout the pancreas. * Scattered osseous metastases in the ribs and bony pelvis. ADDITIONAL FINDINGS: * New left UVJ nonobstructing calculus. Krenning Score: 4 * Score 0: No abnormal uptake * Score 1: Very low uptake * Score 2: Uptake less than or equal to the liver * Score 3: Uptake greater than liver but less than spleen * Score 4: Uptake greater than the spleen Commercial Roofer: [facility] Transcribe Date/Time: Aug 04 2024 10:43A Dictated by : SHARMILA SANABRIA DO This examination was interpreted and the report reviewed and electronically signed by: LUIS FELIPE MONROE MD on Aug 04 2024 1:01PM EST [id number]^ACN Procedure Note Radiology, Radiologist, - 08/04/2024 * * *Final Report* * * DATE OF EXAM: Aug 03 2024 8:45AM [facility] 0094 - NM PET/CT NEUROENDOCRINE WB / PROCEDURE REASON: multiple diagnoses * * * * Physician Interpretation * * * * EXAMINATION: SOMATOSTATIN RECEPTOR PET-CT CLINICAL HISTORY: 68 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 The patient is status post palliative GJ bypass on 10/29/2023 EXAM CATEGORY: Subsequent treatment strategy. TECHNIQUE: Radiopharmaceutical [...] some pathology. * CT Dose-Length Product (DLP): 281 mGy*cm * CT Dose Reduction Employed: Yes * Injection site: Right Hand * Injected activity: 4.7 mCi * Uptake Time: 61 minutes * Radiopharmaceutical: Ga-68 Dotatate COMPARISON: FDG PET/CT 06/03/2024 CORRELATION: CT 05/13/2024, 10/01/2023, 09/02/2023 RESULT: REFERENCES: Dotatate uptake serves as a surrogate marker for somatostatin receptor 2 (SSTR2) expression. All reported standardized uptake values represent maximum SUV (SUVmax) per body weight, unless otherwise specified. SUV Reference Values: * Background Liver: SUVmax 6.9 * Background Spleen: SUVmax 18.7 Localizer Images: No additional findings. HEAD AND NECK: Head: No radiotracer avid lesion or mass effect in the intracranial compartment. Aerodigestive Tract: No radiotracer avid lesion. Lymph Nodes: Stable size of multiple tracer avid left supraclavicular lymph nodes, most prominent lymph node for example 0.8 cm inferior most noted adjacent to the thyroid, max SUV 33.2 (4:95). Neck Soft Tissues: No radiotracer avid thyroid nodule. CHEST: Lungs and Pleura: Stable left apical 1.7 cm lung nodule with minimaluptake SUV max 1.6 (4:108). Lymph Nodes: No radiotracer avid lymphadenopathy. Mediastinum: No radiotracer avid mass. Cardiovascular: Blood pool activity. No pericardial effusion. Normal heart size. Chest Wall: No radiotracer avid soft tissue lesion. ABDOMEN AND PELVIS: Hepatobiliary: No radiotracer avid lesion. No measurable mass. Spleen: No radiotracer avid lesion. No splenomegaly. Pancreas: Patchy, near complete involvement of the entire pancreas which demonstrates marked tracer uptake for example max SUV of 38.2 in the distal tail and max SUV of 40 in the head. Adrenals: No radiotracer avid nodule. Urinary Tract: Physiologic radiotracer excretion in the renal collecting systems and urinary bladder. No hydronephrosis. Nonobstructing 5 mm calculus at the left UVJ (4:71). GI Tract: Slight increased size of distal iliac tracer avid intramural lesion now measuring 2.0 x 1.8 cm, mass SUV 23.7 (4:223), previously 1.9 x 1.3 cm. Additionally slight increased size of adjacent partially calcified nodule now measuring 2.0 x 1.8 cm, max SUV 28.2 (4:218), previously 1.8 x 1.7 cm. 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 No dilated bowel. Peritoneum and lymph nodes: Since 06/03/2024, overall worsening of abdominopelvic peritoneal and retroperitoneal tracer avid metastases with increased size of multiple lesions as well as scattered new tracer avid lesions, for example: * New tracer avid retrocrural lesions for example 0.6 cm lesion on the right, SUV 11.6 (4:171) * Increased size of peripancreatic central masslike conglomeration measuring 7.4 x 6.5 cm, max SUV 40 (4:198), previously 7.0 x 6 cm. * Increased size of 2.1 x 1.4 cm left of midline mesenteric node, max SUV 24.4 (4:2 9), previously 2.0 x 1.4 cm. * Increased size of 1.8 x 1 cm lesion adjacent to the left base of penis, max SUV 30.3 (4:29), previously 1.5 x 0.7 cm * Stable size of 0.4 cm lesion within the left ischioanal fossa fat, axial SUV 6.1 (4:26). Vasculature: Blood pool activity. Pelvic Organs: No radiotracer avid lesion. MUSCULOSKELETAL: Bones: Newly apparent multiple tracer avid osseous lesions without imaging correlates in the bilateral bony pelvis and multiple bilateral ribs, for example: * Anterior right eighth rib, max SUV 5.6 (4:178) * Right posterior iliac bone, max SUV 17 (4:238) Soft Tissues: Stable right gluteal caroel lipoma IMPRESSION: PRIMARY DISEASE SITE: * Slight increased size of distal ileum metabolically avid lesion with adjacent partially calcified implant representing biopsy-proven neuroendocrine tumor. ANILA DISEASE: * Overall worsened abdominopelvic lymph node metastases with multiple new tracer avid nodes. * Left supraclavicular tracer avid lymph nodes representing metastasis. METASTATIC DISEASE: * Patchy, near complete tracer uptake throughout the pancreas. * Scattered osseous metastases in the ribs and bony pelvis. ADDITIONAL FINDINGS: * New left UVJ nonobstructing calculus. Krenning Score: 4 * Score 0: No abnormal uptake * Score 1: Very low uptake * Score 2: Uptake less than or equal to the liver * Score 3: Uptake greater than liver but less than spleen * Score 4: Uptake greater than the spleen Commercial Roofer: [facility] Transcribe Date/Time: Aug 04 2024 10:43A Dictated by : SHARMILA SANABRIA, This examination was interpreted and the report reviewed and electronically signed by: LUIS FELIPE MONROE MD on Aug 04 2024 1:01PM EST [id number]^ACN us Generic External Data Provider [facility] Final Result documented in this encounter Visit Diagnoses Not on filedocumented in this encounter Care Teams Chemical Engineering Intern Relationship Specialty Start Date End Date Rene Pandey MD PCP - General Family Medicine 01/24/23 Ra Silveira MD [address] [place] [address] [place] [address] Referring Physician Hematology and Oncology 11/23/24 Jean Madsen MD [address] [place] [address] 2, [address] [place] [address] Referring Physician Cardiology 11/23/24 documented as of this encounter
--- OUTSIDE RECORDS SUMMARY | 2025-02-22 21:46 | XMS_ITS | Encounter Summary ---
Author Organization [facility] Address [address] [place] [address] Care Team Providers Care Insurance Sales Assistant Name Role Phone Rene Pandey MD Unavailable [phone] Rene Pandey MD Primary Care Provider [phone] Rene Pandey MD Unavailable [phone] Ra Silveira MD Unavailable [phone] Jean Madsen MD Unavailable [phone] Encounter Details Date Type Department Care Team (Late st Contact Info) Description 07/25/2023 Abstract [facility] [address] [facility] [address] Gela Eller MD [address] [place] [address] Social History Tobacco Use Types Packs/Day Years [...] 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 Not on file Not on file documented as of this encounter Plan of Treatment Upcoming Encounters Date Type Department Care Team (Late st Contact Info) Description 03/30/2025 1:30 PM EDT Office Visit [facility] [address] [place] [phone] Santosh Nuñez, DO [address] [place] [address] 04/13/2025 9:30 AM EDT Office Visit [facility] [address] [place] [address] Rene Pandey MD [address] [place] [address] (Fax) documented as of this encounter Visit Diagnoses Not on filedocumented in this encounter Care Teams Insurance Sales Assistant Relationship Specialty Start Date End Date Rene Pandey MD [address] [place] [address] (Fax) PCP - [place] [employer] 11/23/20 01/23/24 Rene Pandey MD [address] [place] [address] (Fax) PCP - General Family Medicine 01/24/23 Rene Pandey MD [address] [place] [address] (Fax) PCP - [place] [employer] 03/25/24 04/24/24 Ra Silveira MD [address] [place] [address] [place] [address] Referring Physician Hematology and Oncology 11/23/24 Jean Madsen MD [address] [place] [address] 2, [facility] 250 [place] [address] Referring Physician Cardiology 11/23/24 documented as of this encounter
--- OUTSIDE RECORDS SUMMARY | 2025-02-22 21:46 | XMS_ITS | Encounter Summary ---
Author Organization [facility] Address [address] [place] [address] Care Team Providers Care Merchandise Manager Name Role Phone Rene Pandey MD Unavailable [phone] Rene Pandey MD Primary Care Provider [phone] Rene Pandey MD Unavailable [phone] Ra Silveira MD Unavailable [phone] Jean Madsen MD Unavailable [phone] Encounter Details Date Type Department Care Team (Late st Contact Info) Description 07/28/2023 Abstract [facility] [address] [place] [address] Jose A Calzada MD [address] [place] [address] Social History Tobacco Use Types Packs/Day Years [...] 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 Not on file Not on file documented as of this encounter Plan of Treatment Upcoming Encounters Date Type Department Care Team (Late st Contact Info) Description 03/30/2025 1:30 PM EDT Office Visit [facility] [address] [place] [phone] Santosh Nuñez, DO [address] [place] [address] 04/13/2025 9:30 AM EDT Office Visit [facility] [address] [place] [address] Rene Pandey MD [address] [place] [address] (Fax) documented as of this encounter Visit Diagnoses Not on filedocumented in this encounter Care Teams Merchandise Manager Relationship Specialty Start Date End Date Rene Pandey MD [address] [place] [address] (Fax) PCP - [place] [employer] 11/23/20 01/23/24 Rene Pandey MD [address] [place] [address] (Fax) PCP - General Family Medicine 01/24/23 Rene Pandey MD [address] [place] [address] (Fax) PCP - [place] [employer] 03/25/24 04/24/24 Ra Silveira MD [address] [place] [address] [place] [address] Referring Physician Hematology and Oncology 11/23/24 Jean Madsen MD [facility] [address], [address] [place] [address] Referring Physician Cardiology 11/23/24 documented as of this encounter
--- OUTSIDE RECORDS SUMMARY | 2025-02-22 22:00 | XMS_ITS | CCD ---
Author Organization [facility] Inform ion [facility] Care Team Providers Care Manager [employer] Name Role Phone DAVIS, DR IRELAND Admitting Unavailable HEMEYER, DR IRELAND Attending Unavailable HEMEYER, DR IRELAND Primary Care Unavailable HEMEYER, DR IRELAND Consulting Unavailable KATHRYN, DR DEBORAH Carl Consulting Unavailable KATHARINAESDOUGLAS COMBS Admitting Unavailable VIGESLAURYN, DOUGLAS Attending Unavailable VENKATAYER, DR IRELAND Primary Care Unavailable KATHRYN, DR DEBORAH Carl Consulting Unavailable DOUGLAS GUTIERREZ Consulting Unavailable HEMEYER, DR IRELAND Admitting Unavailable HEMEYER, DR IRELAND Attending Unavailable HEMEYER, DR IRELAND Primary Care Unavailable HEMEYER, DR IRELAND Consulting Unavailable HEMEYER, DR IRELNAD Admitting Unavailable HEMEYER, DR IRELAND Attending Unavailable HEMEYER, DR IRELAND Primary Care Unavailable HEMEYER, DR IRELAND Consulting Unavailable Hemeyer Rene ARNDT Primary Care Provider [phone] DOUGLAS GUTIERREZ Referring Unavailable DAVIS, RENE Bynum Primary Care Unavailable HEMEYER, RENE [...] Unavailab MD Rene Ramos Primary Care Provider [phone] DO Joselito Madsen Attending Provider Arnel Madsen Referring Unavailable Davis, Dr. Rene Diana Primary Care Unava ilable Arnel Madsen Attending Unavailable Arnel Madsen Referring Unavailable Dr. Rene Cannon Primary Care Unava ilArnel Loredo Attending Unavailable Rene Cannon Unavailable Unavailable Unavailable Emanuel Chantal Unavailable MD Rene Cannon Primary Care Provider DO Kip Gutiérrez Emergency Provider MD Gela Eller Admit Provider MD Gela Eller Attending Provider MD Elsi Aziz Other Provider MD Niyah Imhilary Other Provider Unavailable Primary Care Provider Unavailabl e Rene Canonn MD Primary Care Provider Nohemy Linder Unavailable DO Cali Patterson Admit Provider DO Cali Patterson Attending Provider [phone] MD Daniela Eber Other Provider DO Johnny Mendoza Attending Provider [phone] Rene Cannon MD Primary Care Provider Rene Cannon MD Primary Care Provider Rene Cannon MD Unavailable Rene Cannon MD Primary Care Provider Rene Cannon MD Primary Care Provider Marily Romero DO Emergency Provider [phone] RENE CANNON Primary Care Unavailab PRATIK Sandra Consulting Unavailable LEW ARITA Attending Unavailable LEW ARITA Admitting Unavailable Roselyn Leonard MD Unavailable [phone] RENE CANNON Attending Unavailable RENE CANNON Attending Unavailable RENE CANNON Attending Unavailable RENE CANNON Attending Unavailable Roselyn Leonard MD Unavailable [phone] Jean Madsen MD Unavailable [phone] Hemeyer, Edward J Primary Care Unavailable Marily Romero Attending Unavailable Marily Romero Admitting Unavailable Francisco SOCIETY REPORTER.Itzel GUTIÉRREZ Unavailable ABHYANKAR, ROSELYN Referring Unavailable HEMEYER, [facility] Unavailab le ABHYANKAR, ROSELYN Attending Unavailable MADAI ALBERTSR A Referring Unavailable HEMEYER, [facility] Unavailab le ABHYANKAR, ROSELYN Referring Unavailable HEMEYER, [facility] Unavailab le ABHYANKAR, ROSELYN Referring Unavailable HEMEYER, [facility] Unavailab le ABHYANKAR, ROSELYN Referring Unavailable HEMEYER, [facility] Unavailab le ABHYANKAR, ROSELYN Attending Unavailable ABHYANKAR, ROSELYN Referring Unavailable HEMEYER, [facility] Unavailab le ABHYANKAR, ROSELYN Referring Unavailable HEMEYER, [facility] Unavailab le HEMEYER, [facility] Unavailab BONNIE Cantu Referring Unavailable ABHYANKAR, ROSELYN Attending Unavailable ABHYANKAR, ROSELYN Referring Unavailable HEMEYER, [facility] Unavailab le ABHYANKAR, ROSELYN Referring Unavailable HEMEYER, [facility] Unavailab le ABHYANKAR, ROSELYN Referring Unavailable HEMEYER, [facility] Unavailab le ABHYANKAR, ROSELYN Referring Unavailable HEMEYER, [facility] Unavailab le ABHYANKAR, ROSELYN Referring Unavailable HEMEYER, [facility] Unavailab le ABHYANKAR, ROSELYN Attending Unavailable ABHYANKAR, ROSELYN Referring Unavailable HEMEYER, [facility] Unavailab le ABHYANKAR, ROSELYN Referring Unavailable HEMEYER, [facility] Unavailab le ABHYANKAR, ROSELYN Referring Unavailable HEMEYER, [facility] Unavailab DLATON Hughes Attending Unavailable GENET, SAMER A Referring Unavailable HEMEYER, [facility] Unavailab le ABHYANKAR, ROSELYN Referring Unavailable HEMEYER, [facility] Unavailab le ABHYANKAR, ROSELYN Attending Unavailable ABHYANKAR, ROSELYN Referring Unavailable HEMEYER, [facility] Unavailab le ABHYANKAR, ROSELYN Referring Unavailable HEMEYER, [facility] Unavailab le ABHYANKAR, ROSELYN Referring Unavailable HEMEYER, [facility] Unavailab le ABHYANKAR, ROSELYN Referring Unavailable HEMEYER, [facility] Unavailab le ABHYANKAR, ROSELYN Referring Unavailable HEMEYER, [facility] Unavailab le ABHYANKAR, ROSELYN Attending Unavailable ABHYANKAR, ROSELYN Referring Unavailable HEMEYER, [facility] Unavailab le ABHYANKAR, ROSELYN Referring Unavailable HEMEYER, [facility] Unavailab le ABHYANKAR, ROSELYN Referring Unavailable HEMEYER, [facility] Unavailab le ABHYANKAR, ROSELYN Referring Unavailable HEMEYER, [facility] Unavailab le ABHYANKAR, ROSELYN Referring Unavailable HEMEYER, [facility] Unavailab le ABHYANKAR, ROSELYN Referring Unavailable HEMEYER, [facility] Unavailab le ABHYANKAR, ROSELYN Referring Unavailable HEMEYER, [facility] Unavailab le ABHYANKAR, ROSELYN Referring Unavailable HEMEYER, [facility] Unavailab le ABHYANKAR, ROSELYN Referring Unavailable HEMEYER, [facility] Unavailab le ABHYANKAR, ROSELYN Referring Unavailable HEMEYER, [facility] Unavailab le ABHYANKAR, ROSELYN Referring Unavailable HEMEYER, [facility] Unavailab le ABHYANKAR, ROSELYN Referring Unavailable HEMEYER, [facility] Unavailab le ABHYANKAR, ROSELYN Referring Unavailable HEMEYER, [facility] Unavailab le ABHYANKAR, ROSELYN Referring Unavailable HEMEYER, [facility] Unavailab ITZEL Lee Attending Unavailable ABHYANKAR, ROSELYN Referring Unavailable HEMEYER, [facility] Unavailab le ABHYANKAR, ROSELYN Referring Unavailable HEMEYER, [facility] Unavailab le ABHYANKAR, ROSELYN Referring Unavailable HEMEYER, [facility] Unavailab le ABHYANKAR, ROSELYN Attending Unavailable ABHYANKAR, ROSELYN Referring Unavailable HEMEYER, [facility] Unavailab le ABHYANKAR, ROSELYN Referring Unavailable HEMEYER, [facility] Unavailab le ABHYANKAR, ROSELYN Referring Unavailable HEMEYER, [facility] Unavailab le ABHYROSELYN CHILDRESS Referring Unavailable DAVIS, [facility] Unavailab le DAVIS, [facility] Unavailab gideon MORELANDFLORAFIOR, ROSELYN Referring Unavailable HEMESB, [facility] Primary Care Unavailab gideon MORELANDFLORAFIOR, ROSELYN Referring Unavailable DAVIS, [facility] Unavailab le Medications Current Medications Medication Drug Class(es) Dates Sig (Normalized) Sig (Original) Calcium-Carb 600 + D 600-125 MG-UNIT (3 sources) take 1 tablet by mouth twice daily Calcium-Carb 600 + D 600-125 MG-UNIT 1 tablet Orally Twice a day Active ferrous sulfate 325 mg oral tablet (12 sources) take 1 tablet by mouth once daily ferrous sulfate (IRON) 325 mg (65 mg iron) tablet Take 30 mg by mouth once daily. Active losartan potassium 100 mg oral tablet (20 sources) Angiotensin 2 Receptor Keshawn Start: 08-30-2024 End: 04-17-2025 take 1 tablet by mouth once daily losartan (Cozaar) 100 MG tablet Indications: Benign essential hypertension Take 1 tablet (100 mg) by mouth Daily 90 tablet 1 10/19/2024 04/17/2025 Active Start: 05-27-2024 End: 08-25-2024 take 1 tablet by mouth once daily losartan (Cozaar) 100 MG tablet Indications: Benign essential hypertension (CMS/HCC) Take 1 tablet (100 mg) by mouth Daily 90 tablet 05/27/2024 08/25/2024 Active Start: 04-27-2024 End: 05-27-2024 take 1 tablet by mouth once daily losartan (Cozaar) 50 MG tablet Indications: Benign essential hypertension (CMS/HCC) Take 1 tablet (50 mg) by mouth Daily 30 tablet 04/27/2024 05/27/2024 Active Start: 04-27-2024 End: 04-27-2024 take 2 tablets by mouth once daily losartan (Cozaar) 25 MG tablet Indications: Benign essential hypertension (CMS/HCC) Take 2 tablets (50 mg) by mouth Daily 60 tablet 04/27/2024 04/27/2024 Discontinued (Reorder) Start: 03-11-2024 End: 04-27-2024 take 1 tablet by mouth once daily losartan (Cozaar) 25 MG tablet Indications: Benign essential hypertension (CMS/HCC) Take 1 tablet (25 mg) by mouth Daily 30 tablet 04/27/2024 04/27/2024 Discontinued (Reorder) Start: 10-23-2021 End: 10-13-2023 take 1 tablet by mouth once daily in the morning Losartan 100 mg tablet Discontinued 100 MG PO Every morning November 29, 2021 12:00am July 26, 2023 1:25pm Comment on above: Take 100 mg by mouth every morning. MULTIVITAMIN ORAL (20 sources) MULTIVITAMIN ORA L Take by mouth. Suspended MULTIVITAMIN ORA L Take by mouth. Active MULTIVITAMIN ORA L Take by mouth. 0 Active Comment on above: Take by mouth. ondansetron 4 mg disintegrating oral tablet (11 sources) Serotonin-3 Receptor Antagonist Start: 07-18-20 End: 04-27-20 take 1 tablet by mouth every eight hours as needed for nausea ondansetron ODT (Zofran-ODT) 4 MG disintegrating tablet Take 4 mg by mouth every 8 (eight) hours if needed for nausea. 07/18/2023 04/27/2024 Discontinued (Therapy completed) Start: 07-10-2023 End: 10-13-2023 take 1 tablet by mouth every eight hours as needed for nausea ondansetron (ZOFRAN) 4 mg tablet TAKE 1 TABLET BY MOUTH EVERY 8 HOURS NEEDED FOR NAUSEA OR FOR VOMITING FOR UP TO 7 DAYS 07/10/2023 10/13/2023 Discontinued (Course of therapy completed) Comment on above: TAKE 1 TABLET BY IRA TH EVERY 8 HOURS NEEDED FOR NAUSEA OR FOR VOMITING FOR UP TO 7 DAYS pantoprazole 40 mg delayed release oral tablet (20 sources) Proton Pump Inhibitor Start: 3 End: take 1 tablet by mouth once daily Pantoprazole (Protonix) 40 mg tablet,delayed release (DR/EC) Active 40 MG PO Daily July 26, 2023 1:00am Start: 12-20-2021 take 1 tablet by ira th every twenty-four hours Pantoprazole Sodium 40 MG 1 tablet Orally Once a day for 30 days Nov, Active Comment on above: Take 1 tablet by ira th every afternoon. Completed/Discontinued Medications Medication Drug Class(es) Dates Sig (Normalized) Sig (Original) amino acids 5% - electrolytes - calcium in D20W 5 % solp 2,000 mL (8 sources) End: 12-09-2023 amino acids 5% - electrolytes - calcium in D20W 5 % solp 2,000 mL Inject intravenously every 12 hours. IV 0 12/09/2023 Discontinued amino acids 5% - electrolytes - calcium in D20W 5 % solp 2,000 mL Inject intravenously every 12 hours. IV 0 Active Comment on above: Inject intravenously every 12 hours. IV calcium carbonate 600 mg / cholecalciferol 125 unt oral tablet (7 sources) Vitamin D Start: 11-30-19 End: 01-16-20 23 take 1 tablet by mouth once daily Calcium Carbonate-Vitamin D3 Discontinued 1 TAB PO Daily November 29, 2021 12:00am January 15, 2023 8:09am Start: 10-23-2021 take 1 tablet by ira once daily Calcium Carb-Cholecalciferol (CALCIUM+D3) 500-400 MG-UNIT TABS Take 1 tablet by mouth daily 90 tablet 1 10/23/2021 Active Calcium Carbonate / vitamin D3 (4 sources) Start: 11-29-2021 End: 01-15-2023 take 1 tablet by mouth once daily Calcium Carbonate-Vitamin D3 Discontinued 1 TAB PO Daily November 28, 2021 11:00pm January 15, 2023 7:09am Calcium Carbonate-Vitamin D3 600-125 mg-unit Tablet (1 source) Start: 11-29-2021 End: 01-15-2023 take 1 tablet by mouth once daily Calcium Carbonate-Vitamin D3 600-125 mg-unit Tablet Discontinued 1 TAB PO Daily November 29, 2021 12:00am January 15, 2023 8:09am dicyclomine hydrochloride 10 mg oral capsule (12 sources) Anticholinergic Start: 11-29-2021 End: 01-15-2023 take 1 capsule by mouth once daily Dicyclomine 10 mg capsule Discontinued 10 MG PO Daily November 29, 2021 12:00am January 15, 2023 8:10am Start: 10-24-2021 take 1 capsule by mo [facility] once daily in the evening dicyclomine (BENTYL) 10 MG capsule Take 1 capsule by mouth every evening 360 capsule 1 10/24/2021 Active 24 hr dilTIAZem hydrochloride 180 mg extended release oral capsule (20 sources) Calcium Channel Keshawn Start: 07-24-2023 End: 07-26-2023 take 1 capsule by mouth once daily Diltiazem Hcl 180 mg capsule,extended release 24hr Discontinued 180 MG PO Daily July 24, 2023 1:00am July 26, 2023 1:25pm Start: 07-10-2023 End: 10-13-2023 dilTIAZem CD (CARDIZEM CD, C ARTIA XT) 180 mg 24 hr capsule Take 240 mg by mouth every morning. 07/10/2023 10/13/2023 Discontinued (Course of therapy completed) Start: 10-23-2021 End: 07-24-2023 take 1 capsule by mouth once daily in the morning Diltiazem Hcl 240 mg capsule,extended release 24hr Discontinued 240 MG PO Every morning November 29, 2021 12:00am July 24, 2023 6:37pm Comment on above: Take 240 mg by mouth every morning. ertapenem (10 sources) Penem Antibacterial Start: 10-09-19 End: 12-09-19 inject 1 g intravenously every twenty-four hours ertapenem sodium (ERTAPENEM INJECTION) Ertapenem Active 1 GM IV Q24H 14 October 09, 2023 12:00am 0 10/09/2023 12/09/2023 Discontinued Start: 10-09-2023 inject 1 g intraveno usly every twenty-four hours ertapenem sodium (ERTAPENEM INJECTION) Ertapenem Active 1 GM IV Q24H 14 October 09, 2023 12:00am 0 10/09/2023 Active Start: 10-09-2023 take 1 g intravenous ly every twenty-four hours Ertapenem 1 gram Recon Soln Active 1 GM IV Q24H October 09, 2023 1:00am Comment on above: Ertapenem Active 1 G M IV Q24H October 09, 2023 12:00am famotidine 20 mg oral tablet (17 sources) Histamine-2 Receptor Antagonist Start: 10-23-2021 End: 12-09-2023 famotidine (PEPCID) 20 mg tablet Take by mouth every 24 hours. 0 10/23/2021 12/09/2023 Discontinued (Discontinued by Patient) Start: 10-23-2021 take 1 tablet by ira th once daily famotidine (PEPCID) 20 MG tablet Take 1 tablet by mouth nightly 90 tablet 1 10/23/2021 Active Comment on above: Take by mouth every 24 hours. finasteride 5 mg oral tablet (20 sources) 5-alpha Reductase Inhibitor Start: 05-25-2023 End: 10-19-2025 finasteride (PROSCAR) 5 mg tablet Take 5 mg by mouth. 10/19/2024 02/10/2025 Discontinued (Side Effects) Start: 01-15-2023 End: 10-19-2025 take 1 tablet by mouth once daily finasteride (Proscar) 5 MG tablet Indications: Benign prostatic hyperplasia with weak urinary stream Take 1 tablet (5 mg) by mouth Daily Do not crush, chew, or split. 90 tablet 3 10/19/2024 10/19/2025 Active Comment on above: Take 5 mg by mouth e very other day. hyoscyamine sulfate 0.125 mg sublingual tablet (12 sources) Start: 11-29-2021 End: 01-15-2023 take 1 tablet under the tongue twice daily Hyoscyamine Sulfate 0.125 mg tablet, sublingual Discontinued 0.125 MG SUBLINGUAL Twice daily November 29, 2021 12:00am January 15, 2023 8:10am Start: 10-24-2021 take 1 tablet under the tongue at bedtime hyoscyamine (LEVSIN/SL) [address] 1 tablet under the tongue in the morning and at bedtime 60 tablet 6 10/24/2021 Active iv contrast (will be provide d with radiology test) (6 sources) Start: 03-24-2024 End: 03-25-2024 iv contrast (will be provide d with radiology test) 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 Discontinue saline lock post exam. If Pt. has a central line or IVAD, may access for administration according to line specific nursing protocol. Once exam is complete flush line and de-access according to line specific nursing protocol in the CT contrast administration guidelines link. 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 Discontinue saline lock post exam. If Pt. has a central line or IVAD, may access for administration according to line specific nursing protocol. Once exam is complete flush line and de-access according to line specific nursing protocol in the CT contrast administration guidelines link. 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 Discontinue saline lock post exam. If Pt. has a central line or IVAD, may access for administration according to line specific nursing protocol. Once exam is complete flush line and de-access according to line specific nursing protocol in the CT contrast administration guidelines link. 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 Discontinue saline lock post exam. If Pt. has a central line or IVAD, may access for administration according to line specific nursing protocol. Once exam is complete flush line and de-access according to line specific nursing protocol in the CT contrast administration guidelines link. 1 Each 0 03/24/2024 03/25/2024 Active Start: 01-28-2024 End: 01-29-2024 iv contrast (will be provide d with radiology test) CT PANCREAS/PEL Inject, intravenously, once for 1 dose.No IV access, insert saline lock prior to the beginning of sedation, infusion, injection of imaging exam. Discontinue saline lock post exam. If Pt. has a central line or IVAD, may access for administration according to line specific nursing protocol. Once exam is complete flush line and de-access according to line specific nursing protocol in the CT contrast administration guidelines link. 1 Each 0 01/28/2024 01/29/2024 Active 24 hr metoprolol succinate 100 mg extended release oral tablet (20 sources) beta-Adrenergic Keshawn Start: 07-10-2023 End: 10-13-2023 take 50 mg by mouth once metoprolol succinate ER (TOPROL XL) 100 mg Take 50 mg by mouth one time only. 07/10/2023 10/13/2023 Discontinued (Course of therapy completed) Start: 11-29-2021 End: 10-06-2023 take 2 tablets by mouth once daily in the morning Metoprolol Succinate 100 mg tablet extended release 24 hr Discontinued 50 MG PO Every morning November 29, 2021 12:00am October 06, 2023 9:23pm Start: 11-29-2021 End: 10-06-2023 take 50 mg by mouth once daily in the morning Metoprolol Succinate Discontinued 50 MG PO Every morning November 28, 2021 11:00pm October 06, 2023 8:23pm take 1 tablet by ira th once daily metoprolol succinate ER (TOPROL XL) 50 mg 24 hr tablet Take 50 mg by mouth once daily. Active take 0.5 tablet by m outh once daily Metoprolol Succinate ER 100 MG 1/2 TABLET Orally Once a day Active take 1 tablet by ira th once daily Toprol XL 100 MG Oral Tablet Extended Release 24 Hour Take 1 tablet by mouth daily Quantity: 0 Refills: 0 Ordered: 09-Jan-2023 DO Active metoprolol succi jayla (TOPROL XL) 100 MG extended release tablet Take 50 mg by mouth daily 0 Active Comment on above: Take 50 mg by mouth one time only. octreotide 20 mg injection (20 sources) Somatostatin Analog Start: 02-11-20 End: 02-11-20 inject 1 dose by intramuscular injection once 20 mg, INTRAMUSCULAR, ONCE, 1 dose, On [facility] 02/10/25 at 1000, REFRIGERATE - PROTECT FROM LIGHT Start: 01-20-2025 End: 01-20-2025 inject 1 dose by intramuscular injection once 20 mg, INTRAMUSCULAR, ONCE, 1 dose, On Susan 01/20/25 at 1000, REFRIGERATE - PROTECT FROM LIGHT Start: 12-30-2024 End: 12-30-2024 inject 1 dose by intramuscular injection once 20 mg, INTRAMUSCULAR, ONCE, 1 dose, On Susan 12/30/24 at 1000, REFRIGERATE - PROTECT FROM LIGHT Start: 12-09-2024 End: 12-09-2024 inject 1 dose by intramuscular injection once 20 mg, INTRAMUSCULAR, ONCE, 1 dose, On Susan 12/09/24 at 1000, REFRIGERATE - PROTECT FROM LIGHT Start: 11-05-2024 End: 11-05-2024 inject 1 dose by intramuscular injection once 20 mg, INTRAMUSCULAR, ONCE, 1 dose, On Fri11/05/24 at 0830, REFRIGERATE - PROTECT FROM LIGHT Start: 10-15-2024 End: 10-15-2024 inject 1 dose by intramuscular injection once 20 mg, INTRAMUSCULAR, ONCE, 1 dose, On Fri10/15/24 at 0830, REFRIGERATE - PROTECT FROM LIGHT Start: 09-24-2024 End: 09-24-2024 inject 1 dose by intramuscular injection once 20 mg, INTRAMUSCULAR, ONCE, 1 dose, On Fri09/24/24 at 0830, REFRIGERATE - PROTECT FROM LIGHT Start: 09-20-2024 octreotide (Sa ndoSTATIN) 20 MG injection Inject 20 mg into the shoulder, thigh, or buttocks See administration instructions Take to provider office for and inject 20mg IM every 3 weeks as directe 09/20/2024 Active Start: 09-20-2024 End: 12-09-2024 octreotide LAR (SANDOSTATIN LAR DEPOT) 20 mg Depot INJ Indications: Malignant carcinoid tumor of the ileum (HCC) Take to provider office for and inject 20mg IM every 3 weeks as directed 1 Each 10/15/2024 12/09/2024 Discontinued Start: 09-03-2024 End: 09-03-2024 inject 1 dose by intramuscular injection once 20 mg, INTRAMUSCULAR, ONCE, 1 dose, On Fri09/03/24 at 0830, REFRIGERATE - PROTECT FROM LIGHT Start: 08-13-2024 End: 08-13-2024 inject 1 dose by intramuscular injection once 20 mg, INTRAMUSCULAR, ONCE, 1 dose, On Fri08/13/24 at 1430, REFRIGERATE - PROTECT FROM LIGHT Start: 06-17-2024 End: 06-17-2024 inject 1 dose by intramuscular injection once 20 mg, INTRAMUSCULAR, ONCE, 1 dose, On Susan 06/17/24 at 0900, REFRIGERATE - PROTECT FROM LIGHT Start: 05-20-2024 End: 05-20-2024 inject 1 dose by intramuscular injection once 20 mg, INTRAMUSCULAR, ONCE, 1 dose, On Susan 05/20/24 at 0930, REFRIGERATE - PROTECT FROM LIGHT Start: 04-21-2024 End: 04-21-2024 inject 1 dose by intramuscular injection once 20 mg, INTRAMUSCULAR, ONCE, 1 dose, On Fri04/21/24 at 0830, REFRIGERATE - PROTECT FROM LIGHT Start: 03-24-2024 End: 03-24-2024 octreotide LAR 20 mg depot (monthly) injection (SandoSTATIN LAR) Start: 02-24-2024 End: 02-24-2024 octreotide LAR 20 mg depot (monthly) injection (SandoSTATIN LAR) Start: 01-28-2024 End: 01-28-2024 octreotide LAR 20 mg depot (monthly) injection (SandoSTATIN LAR) Start: 12-31-2023 End: 12-31-2023 octreotide LAR 20 mg depot (monthly) injection (SandoSTATIN LAR) PEPTAMEN 1.5 0.068 gram- 1.5 kcal/mL (1 [...] Enteral Access: PEG with Jejunal Extension Potassium (6 sources) End: 10-13-2023 potassium (POTASSIMIN ORAL) Take by mouth. 10/13/2023 Discontinued (Course of therapy completed) End: 10-13-2023 potassium (POTASSIMIN ORAL) Take by mouth. 0 10/13/2023 Discontinued (Course of therapy completed) potassium (POTAS ELVER ORAL) Take by mouth. 0 Active potassium (POTAS ELVER ORAL) Take by mouth. 0 Suspended Comment on above: Take by mouth. potassium gluconate 2.5 meq oral tablet (16 sources) Start: 01-15-2023 End: 10-06-2023 take 1 tablet by mouth once daily in the morning Potassium Gluconate 595 mg (99 mg) Tablet Discontinued 99 MG PO Every morning January 15, 2023 12:00am October 06, 2023 9:24pm End: 02-10-2024 take 1 tablet by mouth once daily Potassium Gluconate 595 mg (99 mg) tab Take 595 mg by mouth once daily. 0 02/10/2024 Discontinued Comment on above: Take 595 mg by mouth once daily. sucralfate 1000 mg oral tablet (9 sources) Aluminum Complex Start: 11-29-2021 End: 01-15-2023 take 1 tablet by mouth three times daily Sucralfate 1 gram tablet Discontinued 1 GM PO Three times daily November 29, 2021 12:00am January 15, 2023 8:10am Start: 11-21-2021 take 1 tablet by ira th every eight hours Sucralfate 1 GM 1 TABLET Orally THREE TIMES A DAY for 30 day(s) Oct, Active tamsulosin hydrochloride 0.4 mg oral capsule (20 sources) alpha-Adrenergic Keshawn Start: 10-23-2021 End: 02-10-2024 take 1 capsule by mouth once daily in the morning Tamsulosin 0.4 mg capsule Discontinued 0.4 MG PO Every morning November 29, 2021 12:00am October 06, 2023 9:24pm Comment on above: Take 0.4 mg by mouth one time only. technetium sestamibi (CARDIOLITE) injection 10 millicurie (1 source) Start: 11-07-2021 End: 11-07-2021 technetium sestamibi (CARDIOLITE) injection 10 millicurie technetium sestamibi (CARDIOLITE) injection 30 millicurie (1 source) Start: 11-07-2021 End: 11-07-2021 technetium sestamibi (CARDIOLITE) injection 30 millicurie Problems Active Problems Problem Classification Problem Date Documented Da te Episodic/Chronic Abdominal pain (10 sources) Unspecified abdominal pain; Translations: [Epigastric pain] Onset: 2 Resolved: 2 Episodic Comment on above: Problem List clean-u p per request of Phys. EHR Cmte Acute and unspecified renal failure (7 sources) Acute renal failure syndrome; Translations: [Acute kidney failure, unspecified] 07-24-2023 Episodic Comment on above: Problem List clean-u p per request of Phys. 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] Onset: 5 01-28-2024 Chronic Cancer of pancreas (3 sources) Malignant tumor of pancreas; Translations: [Malignant neoplasm of pancreas, unspecified] Onset: 4 03-24-2024 Chronic Cardiac dysrhythmias (20 sources) Cardiac arrhythmia; Translations: [Cardiac arrhythmia, unspecified] Onset: 3 01-28-2023 Chronic Chronic kidney disease (20 sources) Chronic kidney disease stage 2; Translations: [Chronic kidney disease, stage 2 (mild)] Onset: 3 10-13-2023 Chronic Complications of surgical procedures or medical care (5 sources) Complication of gastrostomy; Translations: [Gastrostomy infection] 10-06-2023 Episodic Conditions associated with dizziness or vertigo (1 source) Dizziness and giddiness; Translations: [Lightheadedness] Onset: 5 Episodic Deficiency and other anemia (1 source) Iron deficiency anemia due to blood loss; Translations: [Iron deficiency anemia secondary to blood loss (chronic)] 12-09-2024 Chronic Deficiency and other anemia (1 source) Iron deficiency anemia secondary to blood loss (chronic); Translations: [Iron deficiency anemia due to chronic blood loss] Onset: 5 Chronic Deficiency and other anemia (9 sources) Iron deficiency anemia; Translations: [Iron deficiency anemia, unspecified] Onset: 5 12-13-2024 Episodic Deficiency and other anemia (1 source) Iron deficiency anemia, unspecified; Translations: [Iron deficiency anemia, unspecified iron deficiency anemia type] Onset: 5 Episodic Digestive congenital anomalies (20 sources) Esophageal diverticulum; 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 EHR Cmte Essential hypertension (20 sources) Hypertensive disorder; Translations: [Unspecified essential hypertension] Onset: 3 08-08-2023 Chronic Gastritis and duodenitis (6 sources) Gastritis; Translations: [Gastritis, unspecified, without bleeding] Onset: 2 Resolved: 2 Episodic Hyperplasia of prostate (20 sources) Benign prostatic hyperplasia; Translations: [Benign prostatic hyperplasia without lower urinary tract symptoms] Onset: 1 Resolved: 3 07-25-2023 Chronic Comment on above: Problem List clean-u p per request of Phys. EHR Cmte Hypertension with complications and secondary hypertension (20 sources) Hypertensive renal disease; Translations: [Hypertensive chronic kidney disease with stage 1 through stage 4 chronic kidney disease, or unspecified chronic kidney disease] Onset: 3 01-28-2023 Chronic Malignant neoplasm without specification of site (20 sources) Primary malignant neuroendocrine neoplasm of ileum; Translations: [Other malignant neuroendocrine tumors] Onset: 3 10-03-2023 Chronic Nonspecific chest pain (2 sources) Chest pain; Translations: [Chest pain, unspecified] Episodic Nutritional deficiencies (20 sources) Deficiency of macronutrients; Translations: [Unspecified severe protein-calorie malnutrition] Onset: 3 Resolved: 4 08-08-2023 Chronic Open wounds of head; neck; and trunk (1 source) Laceration without foreign body of nose, initial encounter Episodic Osteoarthritis (20 sources) Primary gonarthrosis, bilateral; Translations: [Bilateral primary osteoarthritis of knee] Onset: 9 01-28-2023 Chronic Other aftercare (1 source) Encounter for removal of sutures Episodic Other bone disease and musculoskeletal deformities (4 sources) Disorder of bone, unspecified; Translations: [Disorder of bone and cartilage, unspecified] Onset: 5 05-20-2024 Episodic Other circulatory disease (1 source) Bruit; Translations: [Other specified symptoms and signs involving the circulatory and respiratory systems] Episodic Other circulatory disease (8 sources) Low blood pressure; Translations: [Hypotension, unspecified] 07-24-2023 Episodic Comment on above: Problem List clean-u p per request of Phys. EHR Cmte Other circulatory disease (4 sources) Hypotension, unspecified; Translations: [Hypotension, unspecified] 07-24-2023 Episodic Other disorders of stomach and duodenum (3 sources) Other diseases of stomach and duodenum; Translations: [Other specified disorders of stomach and duodenum] 07-26-2023 Episodic Other gastrointestinal disorders (20 sources) Patient encounter status; Translations: [Encounter for attention to gastrostomy] Onset: 4 10-03-2023 Chronic Other gastrointestinal disorders (5 sources) Mass of digestive structure; Translations: [Other specified diseases of intestine] 07-24-2023 Episodic Comment on above: Problem List clean-u p per request of Phys. EHR Cmte Other gastrointestinal disorders (2 sources) Other specified diseases of intestine; Translations: [Other specified disorders of intestine] 07-24-2023 Episodic Other gastrointestinal disorders (1 source) Diarrhea, unspecified; Translations: [Bloody diarrhea] Onset: 5 Episodic Other inflammatory condition of skin (20 sources) Psoriasis; Translations: [Psoriasis, unspecified] Onset: 3 01-28-2023 Chronic Other injuries and conditions due to external causes (1 source) Soft tissue injury; Translations: [Injury, unspecified, initial encounter] 06-03-2024 Episodic Other lower respiratory disease (5 sources) Shortness of breath; Translations: [SHORTNESS OF BREATH] Onset: 2 Episodic Other lower respiratory disease (8 sources) Lung mass; Translations: [Other nonspecific abnormal finding of lung field] 05-20-2024 Episodic Other lower respiratory disease (1 source) Other nonspecific abnormal finding of lung field; Translations: [Lung mass] Onset: 5 Episodic Other nutritional; endocrine; and metabolic disorders (1 source) Overweight in adulthood with body mass index of 25 or more but less than 30; Translations: [Overweight] Episodic Other nutritional; endocrine; and metabolic disorders (5 sources) Unintentional weight loss; Translations: [Abnormal weight loss] 07-24-2023 Episodic Comment on above: Problem List clean-u p per request of Phys. EHR Cmte Other nutritional; endocrine; and metabolic disorders (2 sources) Abnormal weight loss; Translations: [Loss of weight] 07-24-2023 Episodic Other screening for suspected conditions (not mental disorders or infectious disease) (3 sources) Cardiovascular stress test abnormal; Translations: [Other nonspecific abnormal results of function study of cardiovascular system] 11-17-2024 Episodic Comment on above: mild; Pneumonia (except that caused by tuberculosis or sexually transmitted disease) (4 sources) Pneumonia, unspecified organism; Translations: [PNEUMONIA UNSPECIFIED ORGANISM] Onset: 2 Episodic Residual codes; unclassified (2 sources) Other specified health status; Translations: [Other specified conditions influencing health status] 10-06-2023 Episodic Residual codes; unclassified (2 sources) Active advance directive (copy within chart) ; Translations: [Other specified health status] 11-17-2024 Episodic Residual codes; unclassified (2 sources) Cardiovascular event risk; Translations: [Other specified personal risk factors, not elsewhere classified] 12-04-2024 Episodic Secondary malignancies (1 source) Secondary malignant neoplasm of lymph node 12-09-2024 Chronic Unclassified (1 source) Radiology [place] Onset: 5 Viral infection (1 source) COVID-19; Translations: [COVID-19] Onset: 2 Past or Other Problems Problem Classification Problem Date Documented Da te Episodic/Chronic Acute posthemorrhagic anemia (16 sources) Acute posthemorrhagic anemia; Translations: [Acute posthemorrhagic anemia] Onset: 5 Resolved: 5 11-03-2024 Episodic Deficiency and other anemia (20 sources) Anemia; Translations: [Anemia, unspecified] Onset: 5 12-03-2023 Episodic Deficiency and other anemia (1 source) Anemia, unspecified; Translations: [Anemia, unspecified type] Onset: 5 Episodic Epilepsy; convulsions (20 sources) Seizure; Translations: [Unspecified convulsions] Onset: 3 08-16-2023 Episodic Fluid and electrolyte disorders (20 sources) Dehydration; Translations: [Hypokalemia] Onset: 2 Resolved: 4 Episodic Comment on above: Problem List clean-u p per request of Phys. EHR Cmte Gastrointestinal hemorrhage (20 sources) Gastrointestinal hemorrhage; Translations: [Gastrointestinal hemorrhage, unspecified] Onset: 5 Resolved: 5 10-31-2024 Episodic Genitourinary symptoms and ill-defined conditions (20 sources) Microalbuminuria; Translations: [Proteinuria, unspecified] Onset: 3 01-28-2023 Episodic Heart valve disorders (20 sources) Nonrheumatic mitral (valve) insufficiency; Translations: [Mitral valve disorders] Onset: 3 Resolved: 4 10-13-2023 Chronic Heart valve disorders (20 sources) Heart murmur; Translations: [Cardiac murmur, unspecified] Onset: 3 01-28-2023 Episodic Malaise and fatigue (20 sources) Asthenia; Translations: [Weakness] Onset: 3 Resolved: 4 08-15-2023 Episodic Mood disorders (8 sources) Mood disorders Onset: 5 11-23-2024 Other aftercare (20 sources) Patient encounter status; Translations: [Encounter for therapeutic drug level monitoring] Onset: 3 08-08-2023 Episodic Other and unspecified benign neoplasm (16 sources) Other benign neuroendocrine tumors; Translations: [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] Onset: 5 10-31-2024 Episodic Other diseases of veins and lymphatics (20 sources) Venous insufficiency of leg; Translations: [Venous insufficiency (chronic) (peripheral)] Onset: 3 01-28-2023 Episodic Other disorders of stomach and duodenum (20 sources) Mass of duodenum; Translations: [Other diseases of stomach and duodenum] Onset: 3 Resolved: 4 07-25-2023 Episodic Other disorders of stomach and duodenum (20 sources) Pyloric obstruction; 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] Onset: 4 08-07-2023 Episodic Other lower respiratory disease (1 source) Dyspnea on exertion; Translations: [Shortness of breath] Resolved: 3 Episodic Other nervous system disorders (20 sources) Postoperative pain ; Translations: [Other acute postprocedural pain] Onset: 4 10-30-2023 Episodic Other nutritional; endocrine; and metabolic disorders (20 sources) Adult failure to thrive syndrome; Translations: [Adult failure to thrive] Onset: 3 Resolved: 4 08-07-2023 Episodic Other nutritional; endocrine; and metabolic disorders (20 sources) Feeding problem; Translations: [Feeding difficulties] Onset: 3 Resolved: 4 08-08-2023 Episodic Other nutritional; endocrine; and metabolic disorders (20 sources) Overweight; Translations: [Overweight] Onset: 3 01-28-2023 Episodic Syncope (20 sources) Syncope and collapse; Translations: [Syncope] Onset: 2 Episodic Unclassified (1 source) Never smoked tobacco; Translations: [Never a smoker] Unclassified (1 source) Bone lesion 12-09-2024 Varicose veins of lower extremity (20 sources) Varicose veins of lower extremity; Translations: [Asymptomatic varicose veins of bilateral lower extremities] Onset: 3 01-28-2023 Episodic Results Test Name Value Interpretation Reference Range Facility CBC W Auto Differential pane l (Bld)on 02-10-2025 Basophils (Bld) [#/Vol] 0.04 10*3/uL Normal <0.11 [facility] Comment on above: Order Comment: Speci men Type: BLOOD SPECIMENOrdering Facility: [facility] Address: [address] [place] [address] Performed By: #### 5 7021-8 ####[facility] LABCLIA [id number] [place] [address] Basophils/100 WBC (Bld) 1.1 % Normal [facility] Comment on above: Order Comment: Speci men Type: BLOOD SPECIMENOrdering Facility: [facility] Address: [address] [place] [address] Performed By: #### 5 7021-8 ####[facility] LABCLIA [id number] [place] [address] Differential cell count method Nom (Bld) Auto Normal [facility] Comment on above: Order Comment: Speci men Type: BLOOD SPECIMENOrdering Facility: [facility] Address: [address] [place] [address] Performed By: #### 5 7021-8 ####[facility] LABCLIA [id number] [place] [address] Eosinophils (Bld) [#/Vol] 0.22 10*3/uL Normal <0.46 [facility] Comment on above: Order Comment: Speci men Type: BLOOD SPECIMENOrdering Facility: [facility] Address: [address] [place] [address] Performed By: #### 5 7021-8 ####[facility] LABCLIA [id number] [place] [address] Eosinophils/100 WBC (Bld) 6.1 % Normal [facility] Comment on above: Order Comment: Speci men Type: BLOOD SPECIMENOrdering Facility: [facility] Address: [address] [place] [address] Performed By: #### 5 7021-8 ####[facility] LABCLIA [id number] [place] [address] Erythrocyte distribution width (RBC) [Ratio] 15.9 % High 11.5-15.0 [facility] Comment on above: Order Comment: Speci men Type: BLOOD SPECIMENOrdering Facility: [facility] Address: [address] [place] [address] Performed By: #### 5 7021-8 ####[facility] LABCLIA [id number] [place] [address] Hematocrit (Bld) [Volume fraction] 33.6 % Low 39.0-51.0 [facility] Comment on above: Order Comment: Speci men Type: BLOOD SPECIMENOrdering Facility: [facility] Address: [address] [place] [address] Performed By: #### 5 7021-8 ####[facility] LABCLIA [id number] [place] [address] Hemoglobin (Bld) [Mass/Vol] 10.5 g/dL Low 13.0-17.0 [facility] Comment on above: Order Comment: Speci men Type: BLOOD SPECIMENOrdering Facility: [facility] Address: [address] [place] [address] Performed By: #### 5 7021-8 ####[facility] LABCLIA [id number] [place] [address] Immature granulocytes (Bld) [#/Vol] 10*3/uL Normal <0.10 [facility] Comment on above: Order Comment: Speci men Type: BLOOD SPECIMENOrdering Facility: [facility] Address: [address] [place], [place] [id number] Performed By: #### 5 7021-8 ####[facility] LABCLIA [id number] [place] [address] Immature granulocytes/100 WBC (Bld) 0.6 % Normal [facility] Comment on above: Order Comment: Speci men Type: BLOOD SPECIMENOrdering Facility: [facility] Address: [address] [place] [address] Performed By: #### 5 7021-8 ####[facility] LABCLIA [id number] [place] [address] Lymphocytes (Bld) [#/Vol] 0.49 10*3/uL Low 1.00-4.00 [facility] Comment on above: Order Comment: Speci men Type: BLOOD SPECIMENOrdering Facility: [facility] Address: [address] [place] [address] Performed By: #### 5 7021-8 ####[facility] LABCLIA [id number] [place] [address] Lymphocytes/100 WBC (Bld) 13.6 % Normal [facility] Comment on above: Order Comment: Speci men Type: BLOOD SPECIMENOrdering Facility: [facility] Address: [address] [place] [address] Performed By: #### 5 7021-8 ####[facility] LABCLIA [id number] [place] [address] MCH (RBC) [Entitic mass] 28.5 pg Normal 26.0-34.0 [facility] Comment on above: Order Comment: Speci men Type: BLOOD SPECIMENOrdering Facility: [facility] Address: [address] [place] [address] Performed By: #### 5 7021-8 ####[facility] LABCLIA [id number] [place] [address] MCHC (RBC) [Mass/Vol] 31.3 g/dL Normal 30.5-36.0 [facility] Comment on above: Order Comment: Speci men Type: BLOOD SPECIMENOrdering Facility: [facility] Address: [address] [place] [address] Performed By: #### 5 7021-8 ####[facility] LABCLIA [id number] [place] [address] MCV (RBC) [Entitic vol] 91.1 fL Normal 80.0-100.0 [facility] Comment on above: Order Comment: Speci men Type: BLOOD SPECIMENOrdering Facility: [facility] Address: [address] [place] [address] Performed By: #### 5 7021-8 ####[facility] LABCLIA [id number] [place] [address] Monocytes (Bld) [#/Vol] 0.78 10*3/uL Normal <0.87 [facility] Comment on above: Order Comment: Speci men Type: BLOOD SPECIMENOrdering Facility: [facility] Address: [address] [place] [address] Performed By: #### 5 7021-8 ####[facility] LABCLIA [id number] [place] [address] Monocytes/100 WBC (Bld) 21.7 % Normal [facility] Comment on above: Order Comment: Speci men Type: BLOOD SPECIMENOrdering Facility: [facility] Address: [address] [place] [address] Performed By: #### 5 7021-8 ####[facility] LABCLIA [id number] [place] [address] Neutrophils (Bld) [#/Vol] 2.05 10*3/uL Normal 1.45-7.50 [facility] Comment on above: Order Comment: Speci men Type: BLOOD SPECIMENOrdering Facility: [facility] Address: [address] [place] [address] Performed By: #### 5 7021-8 ####[facility] LABCLIA [id number] [place] [address] Neutrophils/100 WBC (Bld) 56.9 % Normal [facility] Comment on above: Order Comment: Speci men Type: BLOOD SPECIMENOrdering Facility: [facility] Address: [address] [place] [address] Performed By: #### 5 7021-8 ####[facility] LABCLIA [id number] [place] [address] Nucleated RBC (Bld) [#/Vol] 10*3/uL Normal <0.01 [facility] Comment on above: Order Comment: Speci men Type: BLOOD SPECIMENOrdering Facility: [facility] Address: [address] [place] [address] Performed By: #### 5 7021-8 ####[facility] LABCLIA [id number] [place] [address] Nucleated RBC/100 WBC (Bld) [Ratio] 0.0 /100 WBC Normal [facility] Comment on above: Order Comment: Speci men Type: BLOOD SPECIMENOrdering Facility: [facility] Address: [address] [place] [address] Performed By: #### 5 7021-8 ####[facility] LABCLIA [id number] [place] [address] Platelet mean volume (Bld) [Entitic vol] 10.1 fL Normal 9.0-12.7 [facility] Comment on above: Order Comment: Speci men Type: BLOOD SPECIMENOrdering Facility: [facility] Address: [address] [place] [address] Performed By: #### 5 7021-8 ####[facility] LABCLIA [id number] [place] [address] Platelets (Bld) [#/Vol] 213 10*3/uL Normal 150-400 [facility] Comment on above: Order Comment: Speci men Type: BLOOD SPECIMENOrdering Facility: [facility] Address: [address] [place] [address] Performed By: #### 5 7021-8 ####[facility] LABCLIA [id number] [place] [address] RBC (Bld) [#/Vol] 3.69 10*6/uL Low 4.20-6.00 [facility] Comment on above: Order Comment: Speci men Type: BLOOD SPECIMENOrdering Facility: [facility] Address: [address] [place] [address] Performed By: #### 5 7021-8 ####[facility] LABCLIA [id number] [place] [address] WBC (Bld) [#/Vol] 3.60 10*3/uL Low 3.70-11.00 [facility] Comment on above: Order Comment: Speci men Type: BLOOD SPECIMENOrdering Facility: [facility] Address: [address] [place] [address] Performed By: #### 5 7021-8 ####[facility] LABCLIA [id number] [place] [address] [facility] CBC W AUTO DIFF BLDon Basophils/100 WBC (Bld) 1.1 % [facility] BASOPHILS # BLD AUTO 0.04 [facility] DIFFERENTIAL METHOD BLD Auto [facility] EOSINOPHIL # BLD AUTO 0.22 [facility] LYMPHOCYTES # BLD AUTO 0.49 Low [facility] MONOCYTES # BLD AUTO 0.78 [facility] NEUTROPHILS # BLD AUTO 2.05 [facility] NRBC # BLD AUTO <0.01 [facility] NRBC/100 WBC BLD-RTO 0 /100 WBC [facility] PLATELET # BLD AUTO [address] [facility] PMV BLD AUTO 10.1 fL 9.0 - 12.7 fL [facility] WBC # BLD AUTO 3.6 Low [facility] Eosinophils/100 WBC (Bld) 6.1 % [facility] Erythrocyte distribution width (RBC) [Ratio] 15.9 % High 11.5 - 15.0 % [facility] Hematocrit (Bld) [Volume fraction] 33.6 % Low 39.0 - 51.0 % [facility] Hemoglobin (Bld) [Mass/Vol] 10.5 g/dL Low 13.0 - 17.0 g/dL [facility] IMM GRANULOCYTES # BLD AUTO <0.03 [facility] IMM GRANULOCYTES/LEUK NFR BLD AUTO 0.6 % [facility] Interpretation and review of laboratory results Abnormal [facility] Lymphocytes/100 WBC (Bld) 13.6 % [facility] MCH (RBC) [Entitic mass] 28.5 pg 26.0 - 34.0 pg [facility] MCHC (RBC) [Mass/Vol] 31.3 g/dL 30.5 - 36.0 g/dL [facility] MCV (RBC) [Entitic vol] 91.1 fL 80.0 - 100.0 fL [facility] Monocytes/100 WBC (Bld) 21.7 % [facility] Neutrophils/100 WBC (Bld) 56.9 % [facility] RBC (Bld) [#/Vol] 3.69 10*6/uL Low 4.20 - 6.00 m/uL [facility] Joseph Specimen Type: BLOOD SPECIMEN Ordering Facility: [facility] Address: [address] [place] [address] Original Ordering Provider: ROSELYN RAMIREZ [facility] Comprehensive metabolic 2000 panelon 02-10-2025 Albumin [Mass/Vol] 4.1 g/dL Normal 3.9-4.9 [facility] Comment on above: Order Comment: Speci men Type: BLOOD SPECIMENOrdering Facility: [facility] Address: [address] [place] [address] Performed By: #### 2 4323-8 ####[facility] LABCLIA [id number] [place] [address] ALP [Catalytic activity/Vol] 175 U/L High 38-113 [facility] Comment on above: Order Comment: Speci men Type: BLOOD SPECIMENOrdering Facility: [facility] Address: [address] [place] [address] Performed By: #### 2 4323-8 ####[facility] LABCLIA [id number] [place] [address] ALT [Catalytic activity/Vol] 20 U/L Normal 10-54 [facility] Comment on above: Order Comment: Speci men Type: BLOOD SPECIMENOrdering Facility: [facility] Address: [address] [place] [address] Performed By: #### 2 4323-8 ####[facility] LABCLIA [id number] [place] [address] Anion gap [Moles/Vol] 9 mmol/L Normal 8-15 [facility] Comment on above: Order Comment: Speci men Type: BLOOD SPECIMENOrdering Facility: [facility] Address: [address] [place] [address] Performed By: #### 2 4323-8 ####[facility] LABCLIA [id number] [place] [address] AST [Catalytic activity/Vol] 39 U/L Normal 14-40 [facility] Comment on above: Order Comment: Speci men Type: BLOOD SPECIMENOrdering Facility: [facility] Address: [address] [place] [address] Performed By: #### 2 4323-8 ####[facility] LABCLIA [id number] [place] [address] Bilirubin [Mass/Vol] 0.4 mg/dL Normal 0.2-1.3 [facility] Comment on above: Order Comment: Speci men Type: BLOOD SPECIMENOrdering Facility: [facility] Address: [address] [place] [address] Performed By: #### 2 4323-8 ####[facility] LABCLIA [id number] [place] [address] Calcium [Mass/Vol] 9.0 mg/dL Normal 8.5-10.2 [facility] Comment on above: Order Comment: Speci men Type: BLOOD SPECIMENOrdering Facility: [facility] Address: [address] [place], [place] [address] Performed By: #### 2 4323-8 ####[facility] LABCLIA [id number] [place] [address] Chloride [Moles/Vol] 110 mmol/L High 98-107 [facility] Comment on above: Order Comment: Speci men Type: BLOOD SPECIMENOrdering Facility: [facility] Address: [address] [place] [address] Performed By: #### 2 4323-8 ####[facility] LABCLIA [id number] [place] [address] CO2 [Moles/Vol] 21 mmol/L Low 22-30 [facility] Comment on above: Order Comment: Speci men Type: BLOOD SPECIMENOrdering Facility: [facility] Address: [address] [place] [address] Performed By: #### 2 4323-8 ####[facility] LABCLIA [id number] [place] [address] Creatinine [Mass/Vol] 1.02 mg/dL Normal 0.73-1.22 [facility] Comment on above: Order Comment: Speci men Type: BLOOD SPECIMENOrdering Facility: [facility] Address: [address] [place] [address] Performed By: #### 2 4323-8 ####[facility] LABCLIA [id number] [place] [address] Creatinine and Glomerular filtration rate.predicted panel (S/P/Bld) 80 mL/min/1.73m??? Normal >=60 [facility] Comment on above: Order Comment: Speci men Type: BLOOD SPECIMENOrdering Facility: [facility] Address: [address] [place] [address] Result Comment: Bailey mated Glomerular Filtration Rate [...] reflect actual GFR. Performed By: #### 2 4323-8 ####[facility] LABCLIA [id number] [place] [address] Glucose [Mass/Vol] 107 mg/dL High 74-99 [facility] Comment on above: Order Comment: Speci men Type: BLOOD SPECIMENOrdering Facility: [facility] Address: [address] [place] [address] Result Comment: The [place] Diabetes Association (ADA) provides guidance for cutoff [...] Standards of Medical Care in Diabetes 2016, [place] [employer]. Diabetes Care. 2016.39(Suppl 1). Performed By: #### 2 4323-8 ####[facility] LABCLIA [id number] [place] [address] Potassium [Moles/Vol] 4.8 mmol/L Normal 3.7-5.1 [facility] Comment on above: Order Comment: Speci men Type: BLOOD SPECIMENOrdering Facility: [facility] Address: [address] [place] [address] Performed By: #### 2 4323-8 ####[facility] LABCLIA [id number] [place] [address] Protein [Mass/Vol] 6.5 g/dL Normal 6.3-8.0 [facility] Comment on above: Order Comment: Speci men Type: BLOOD SPECIMENOrdering Facility: [facility] Address: [address] [place] [address] Performed By: #### 2 4323-8 ####[facility] LABCLIA [id number] [place] [address] Sodium [Moles/Vol] 140 mmol/L Normal 136-144 [facility] Comment on above: Order Comment: Speci men Type: BLOOD SPECIMENOrdering Facility: [facility] Address: [address] [place], [place] [address] Performed By: #### 2 4323-8 ####[facility] LABCLIA [id number] [place] [address] Urea nitrogen [Mass/Vol] 14 mg/dL Normal 9-24 [facility] Comment on above: Order Comment: Speci men Type: BLOOD SPECIMENOrdering Facility: [facility] Address: [address] [place], [place] [address] Performed By: #### 2 4323-8 ####[facility] LABCLIA [id number] [place] [address] Ferritin SerPl-ncon 2024 Ferritin [Mass/Vol] 40.3 ng/mL Normal 30.3-565.7 [facility] Comment on above: Order Comment: Speci men Type: BLOOD SPECIMENOrdering Facility: [facility] Address: [address] [place] [address] Performed By: #### 2 276-4, 18009-1 ####[facility] LABIA [id number] [place] [address] [place] Iron and Iron binding capaci panelon 02-10-2025 Iron [Mass/Vol] 250 ug/dL High 41-186 [facility] Comment on above: Order Comment: Speci men Type: BLOOD SPECIMENOrdering Facility: [facility] Address: [address] [place], [place] [address] Performed By: #### 2 276-4, 82025-5 ####[facility] [id number] [place] [id number] [place] Iron binding capacity [Mass/Vol] 401 ug/dL High 232-386 [facility] Comment on above: Order Comment: Speci men Type: BLOOD SPECIMENOrdering Facility: [facility] Address: [address] [place] [address] Performed By: #### 2 276-4, 89261-2 ####[facility] LABCLIA [id number] [place] [address] [place] Iron/TIBC [Molar ratio] 62.3 % High 15.0-57.0 C [facility] Comment on above: Order Comment: Speci men Type: BLOOD SPECIMENOrdering Facility: [facility] Address: [address] [place] [address] Performed By: #### 2 276-4, 94364-5 ####[facility] LABCLIA [id number] [place] [address] [place] CNPNon 02-07-2025 CNPN Normal [facility] CBC W Auto Differential pane l (Bld)on 01-20-2025 Basophils (Bld) [#/Vol] 0.03 10*3/uL Normal <0.11 [facility] Comment on above: Order Comment: Speci men Type: BLOOD SPECIMENOrdering Facility: [facility] Address: [address] [place] [address] Performed By: #### 5 7021-8 ####[facility] LABCLIA [id number] [place] [address] Basophils/100 WBC (Bld) 0.8 % Normal C [facility] Comment on above: Order Comment: Speci men Type: BLOOD SPECIMENOrdering Facility: [facility] Address: [address] [place] [address] Performed By: #### 5 7021-8 ####[facility] LABCLIA [id number] [place] [address] Differential cell count method Nom (Bld) Auto Normal [facility] Comment on above: Order Comment: Speci men Type: BLOOD SPECIMENOrdering Facility: [facility] Address: [address] [place] [address] Performed By: #### 5 7021-8 ####[facility] LABCLIA [id number] [place] [address] Eosinophils (Bld) [#/Vol] 0.18 10*3/uL Normal <0.46 [facility] Comment on above: Order Comment: Speci men Type: BLOOD SPECIMENOrdering Facility: [facility] Address: [address] [place] [address] Performed By: #### 5 7021-8 ####[facility] LABCLIA [id number] [place] [address] Eosinophils/100 WBC (Bld) 5.1 % Normal [facility] Comment on above: Order Comment: Speci men Type: BLOOD SPECIMENOrdering Facility: [facility] Address: [address] [place] [address] Performed By: #### 5 7021-8 ####[facility] LABCLIA [id number] [place] [address] Erythrocyte distribution width (RBC) [Ratio] 16.8 % High 11.5-15.0 [facility] Comment on above: Order Comment: Speci men Type: BLOOD SPECIMENOrdering Facility: [facility] Address: [address] [place] [address] Performed By: #### 5 7021-8 ####[facility] LABCLIA [id number] [place] [address] Hematocrit (Bld) [Volume fraction] 33.8 % Low 39.0-51.0 [facility] Comment on above: Order Comment: Speci men Type: BLOOD SPECIMENOrdering Facility: [facility] Address: [address] [place] [address] Performed By: #### 5 7021-8 ####[facility] LABIA [id number] [place] [address] Hemoglobin (Bld) [Mass/Vol] 10.7 g/dL Low 13.0-17.0 [facility] Comment on above: Order Comment: Speci men Type: BLOOD SPECIMENOrdering Facility: [facility] Address: [address] [place] [address] Performed By: #### 5 7021-8 ####[facility] LABCLIA [id number] [place] [address] Immature granulocytes (Bld) [#/Vol] 10*3/uL Normal <0.10 [facility] Comment on above: Order Comment: Speci men Type: BLOOD SPECIMENOrdering Facility: [facility] Address: [address] [place] [address] Performed By: #### 5 7021-8 ####[facility] LABCLIA [id number] [place] [address] Immature granulocytes/100 WBC (Bld) 0.3 % Normal [facility] Comment on above: Order Comment: Speci men Type: BLOOD SPECIMENOrdering Facility: [facility] Address: [address] [place] [address] Performed By: #### 5 7021-8 ####[facility] LABCLIA [id number] [place] [address] Lymphocytes (Bld) [#/Vol] 0.47 10*3/uL Low 1.00-4.00 [facility] Comment on above: Order Comment: Speci men Type: BLOOD SPECIMENOrdering Facility: [facility] Address: [address] [place] [address] Performed By: #### 5 7021-8 ####[facility] LABCLIA [id number] [place] [address] Lymphocytes/100 WBC (Bld) 13.2 % Normal [facility] Comment on above: Order Comment: Speci men Type: BLOOD SPECIMENOrdering Facility: [facility] Address: [address] [place] [address] Performed By: #### 5 7021-8 ####[facility] LABCLIA [id number] [place] [address] MCH (RBC) [Entitic mass] 29.4 pg Normal 26.0-34.0 [facility] Comment on above: Order Comment: Speci men Type: BLOOD SPECIMENOrdering Facility: [facility] Address: [address] [place] [address] Performed By: #### 5 7021-8 ####[facility] LABCLIA [id number] [place] [address] MCHC (RBC) [Mass/Vol] 31.7 g/dL Normal 30.5-36.0 [facility] Comment on above: Order Comment: Speci men Type: BLOOD SPECIMENOrdering Facility: [facility] Address: [address] [place] [address] Performed By: #### 5 7021-8 ####[facility] LABCLIA [id number] [place] [address] MCV (RBC) [Entitic vol] 92.9 fL Normal 80.0-100.0 C [facility] Comment on above: Order Comment: Speci men Type: BLOOD SPECIMENOrdering Facility: [facility] Address: [address] [place] [address] Performed By: #### 5 7021-8 ####[facility] LABCLIA [id number] [place] [address] Monocytes (Bld) [#/Vol] 0.74 10*3/uL Normal <0.87 [facility] Comment on above: Order Comment: Speci men Type: BLOOD SPECIMENOrdering Facility: [facility] Address: [address] [place] [address] Performed By: #### 5 7021-8 ####[facility] LABCLIA [id number] [place] [address] Monocytes/100 WBC (Bld) 20.8 % Normal C [facility] Comment on above: Order Comment: Speci men Type: BLOOD SPECIMENOrdering Facility: [facility] Address: [address] [place] [address] Performed By: #### 5 7021-8 ####[facility] LABCLIA [id number] [place] [address] Neutrophils (Bld) [#/Vol] 2.12 10*3/uL Normal 1.45-7.50 [facility] Comment on above: Order Comment: Speci men Type: BLOOD SPECIMENOrdering Facility: [facility] Address: [address] [place] [address] Performed By: #### 5 7021-8 ####[facility] LABCLIA [id number] [place] [address] Neutrophils/100 WBC (Bld) 59.8 % Normal [facility] Comment on above: Order Comment: Speci men Type: BLOOD SPECIMENOrdering Facility: [facility] Address: [address] [place] [address] Performed By: #### 5 7021-8 ####[facility] LABCLIA [id number] [place] [address] Nucleated RBC (Bld) [#/Vol] 10*3/uL Normal <0.01 [facility] Comment on above: Order Comment: Speci men Type: BLOOD SPECIMENOrdering Facility: [facility] Address: [address] [place] [address] Performed By: #### 5 7021-8 ####[facility] LABCLIA [id number] [place] [address] Nucleated RBC/100 WBC (Bld) [Ratio] 0.0 /100 WBC Normal [facility] Comment on above: Order Comment: Speci men Type: BLOOD SPECIMENOrdering Facility: [facility] Address: [address] [place] [address] Performed By: #### 5 7021-8 ####[facility] LABIA [id number] [place] [address] Platelet mean volume (Bld) [Entitic vol] 9.8 fL Normal 9.0-12.7 [facility] Comment on above: Order Comment: Speci men Type: BLOOD SPECIMENOrdering Facility: [facility] Address: [address] [place] [address] Performed By: #### 5 7021-8 ####[facility] LABCLIA [id number] [place] [address] Platelets (Bld) [#/Vol] 250 10*3/uL Normal 150-400 [facility] Comment on above: Order Comment: Speci men Type: BLOOD SPECIMENOrdering Facility: [facility] Address: [address] [place] [address] Performed By: #### 5 7021-8 ####[facility] LABCLIA [id number] [place] [address] RBC (Bld) [#/Vol] 3.64 10*6/uL Low 4.20-6.00 [facility] Comment on above: Order Comment: Speci men Type: BLOOD SPECIMENOrdering Facility: [facility] Address: [address] [place] [address] Performed By: #### 5 7021-8 ####[facility] LABIA [id number] [place] [address] WBC (Bld) [#/Vol] 3.55 10*3/uL Low 3.70-11.00 [facility] Comment on above: Order Comment: Speci men Type: BLOOD SPECIMENOrdering Facility: [facility] Address: [address] [place] [address] Performed By: #### 5 7021-8 ####[facility] LABCLIA [id number] [place] [address] [facility] CBC W AUTO DIFF BLDon Basophils/100 WBC (Bld) 0.8 % N [facility] BASOPHILS # BLD AUTO 0.03 [facility] DIFFERENTIAL METHOD BLD Auto [facility] EOSINOPHIL # BLD AUTO 0.18 [facility] LYMPHOCYTES # BLD AUTO 0.47 Low [facility] MONOCYTES # BLD AUTO 0.74 [facility] NEUTROPHILS # BLD AUTO 2.12 [facility] NRBC # BLD AUTO <0.01 [facility] NRBC/100 WBC BLD-RTO 0 /100 WBC [facility] PLATELET # BLD AUTO 250 [facility] PMV BLD AUTO 9.8 fL 9.0 - 12.7 fL [facility] WBC # BLD AUTO 3.55 Low [facility] Eosinophils/100 WBC (Bld) 5.1 % [facility] Erythrocyte distribution width (RBC) [Ratio] 16.8 % High 11.5 - 15.0 % [facility] Hematocrit (Bld) [Volume fraction] 33.8 % Low 39.0 - 51.0 % [facility] Hemoglobin (Bld) [Mass/Vol] 10.7 g/dL Low 13.0 - 17.0 g/dL [facility] IMM GRANULOCYTES # BLD AUTO <0.03 [facility] IMM GRANULOCYTES/LEUK NFR BLD AUTO 0.3 % [facility] Interpretation and review of laboratory results Abnormal [facility] Lymphocytes/100 WBC (Bld) 13.2 % [facility] MCH (RBC) [Entitic mass] 29.4 pg 26.0 - 34.0 pg [facility] MCHC (RBC) [Mass/Vol] 31.7 g/dL 30.5 - 36.0 g/dL [facility] MCV (RBC) [Entitic vol] 92.9 fL 80.0 - 100.0 fL [facility] Monocytes/100 WBC (Bld) 20.8 % [facility] Neutrophils/100 WBC (Bld) 59.8 % [facility] RBC (Bld) [#/Vol] 3.64 10*6/uL Low 4.20 - 6.00 m/uL [facility] Specimen Type: BLOOD SPECIMEN Ordering Facility: [facility] Address: [address] [place] [address] Original Ordering Provider: ROSELYN RAMIREZ [facility] CNOVSPon 01-20-2025 CNOVSP Normal [facility] CgA SerPl-mCncon 01-20-2025 Chromogranin A [Mass/Vol] 240.1 ng/mL High <187.0 [facility] Comment on above: Order Comment: Speci men Type: BLOOD SPECIMENOrdering Facility: [facility] Address: [address] [place] [address] Result Comment: The Chromogranin A test was performed using the [employer] Cg[employer] II KRYPTOR method. Results obtained with different assay methods or kits cannot be used interchangeably. Performed By: #### 9 811-1 ####[facility] LABCLIA [id number] [place] [address] [facility] Comprehensive metabolic 2000 panelon 01-20-2025 Albumin [Mass/Vol] 4.0 g/dL Normal 3.9-4.9 [facility] Comment on above: Order Comment: Speci men Type: BLOOD SPECIMENOrdering Facility: [facility] Address: [address] [place] [address] Performed By: #### 2 4323-8 ####[facility] LABCLIA [id number] [place] [address] ALP [Catalytic activity/Vol] 173 U/L High 38-113 [facility] Comment on above: Order Comment: Speci men Type: BLOOD SPECIMENOrdering Facility: [facility] Address: [address] [place] [address] Performed By: #### 2 4323-8 ####[facility] LABCLIA [id number] [place] [address] ALT [Catalytic activity/Vol] 15 U/L Normal 10-54 [facility] Comment on above: Order Comment: Speci men Type: BLOOD SPECIMENOrdering Facility: [facility] Address: [address] [place] [address] Performed By: #### 2 4323-8 ####[facility] LABIA [id number] [place] [address] Anion gap [Moles/Vol] 11 mmol/L Normal 8-15 [facility] Comment on above: Order Comment: Speci men Type: BLOOD SPECIMENOrdering Facility: [facility] Address: [address] [place] [address] Performed By: #### 2 4323-8 ####[facility] LABCLIA [id number] [place] [address] AST [Catalytic activity/Vol] 28 U/L Normal 14-40 [facility] Comment on above: Order Comment: Speci men Type: BLOOD SPECIMENOrdering Facility: [facility] Address: [address] [place] [address] Performed By: #### 2 4323-8 ####[facility] LABCLIA [id number] [place] [address] Bilirubin [Mass/Vol] 0.3 mg/dL Normal 0.2-1.3 [facility] Comment on above: Order Comment: Speci men Type: BLOOD SPECIMENOrdering Facility: [facility] Address: [address] [place] [address] Performed By: #### 2 4323-8 ####[facility] LABCLIA [id number] [place] [address] Calcium [Mass/Vol] 9.0 mg/dL Normal 8.5-10.2 [facility] Comment on above: Order Comment: Speci men Type: BLOOD SPECIMENOrdering Facility: [facility] Address: [address] [place] [address] Performed By: #### 2 4323-8 ####[facility] LABCLIA [id number] [place] [address] Chloride [Moles/Vol] 112 mmol/L High 98-107 [facility] Comment on above: Order Comment: Speci men Type: BLOOD SPECIMENOrdering Facility: [facility] Address: [address] [place] [address] Performed By: #### 2 4323-8 ####[facility] LABCLIA [id number] [place] [address] CO2 [Moles/Vol] 20 mmol/L Low 22-30 [facility] Comment on above: Order Comment: Speci men Type: BLOOD SPECIMENOrdering Facility: [facility] Address: [address] [place] [address] Performed By: #### 2 4323-8 ####[facility] LABCLIA [id number] [place] [address] Creatinine [Mass/Vol] 0.91 mg/dL Normal 0.73-1.22 [facility] Comment on above: Order Comment: Speci men Type: BLOOD SPECIMENOrdering Facility: [facility] Address: [address] [place] [address] Performed By: #### 2 4323-8 ####[facility] LABCLIA [id number] [place] [address] Creatinine and Glomerular filtration rate.predicted panel (S/P/Bld) 91 mL/min/1.73m??? Normal >=60 [facility] Comment on above: Order Comment: Speci men Type: BLOOD SPECIMENOrdering Facility: [facility] Address: [address] [place] [address] Result Comment: Bailey mated Glomerular Filtration Rate [...] reflect actual GFR. Performed By: #### 2 4323-8 ####[facility] LABCLIA [id number] [place] [address] Glucose [Mass/Vol] 110 mg/dL High 74-99 [facility] Comment on above: Order Comment: Speci men Type: BLOOD SPECIMENOrdering Facility: [facility] Address: [address] [place] [address] Result Comment: The [place] Diabetes Association (ADA) provides guidance for cutoff [...] Standards of Medical Care in Diabetes 2016, [place] Diabetes Association. Diabetes Care. 2016.39(Suppl 1). Performed By: #### 2 4323-8 ####[facility] LABCLIA [id number] [place] [address] Potassium [Moles/Vol] 4.6 mmol/L Normal 3.7-5.1 [facility] Comment on above: Order Comment: Speci men Type: BLOOD SPECIMENOrdering Facility: [facility] Address: [address] [place] [address] Performed By: #### 2 4323-8 ####[facility] LABCLIA [id number] [place] [address] Protein [Mass/Vol] 6.3 g/dL Normal 6.3-8.0 [facility] Comment on above: Order Comment: Speci men Type: BLOOD SPECIMENOrdering Facility: [facility] Address: [address] [place] [address] Performed By: #### 2 4323-8 ####[facility] LABCLIA [id number] [place] [address] Sodium [Moles/Vol] 143 mmol/L Normal 136-144 [facility] Comment on above: Order Comment: Speci men Type: BLOOD SPECIMENOrdering Facility: [facility] Address: [address] [place] [address] Performed By: #### 2 4323-8 ####[facility] LABCLIA [id number] [place] [address] Urea nitrogen [Mass/Vol] 12 mg/dL Normal 9-24 [facility] Comment on above: Order Comment: Speci men Type: BLOOD SPECIMENOrdering Facility: [facility] Address: [address] [place] [address] Performed By: #### 2 4323-8 ####[facility] LABCLIA [id number] [place] [address] Gastrin SerPl-mCncon 025 Gastrin [Mass/Vol] 36.1 pg/mL Normal <115.0 [facility] Comment on above: Order Comment: Speci men Type: BLOOD SPECIMENOrdering Facility: [facility] Address: [address] [place] [address] Result Comment: The Gastrin test was performed using the Siemens Immulite chemiluminescent immunometric method. Results obtained with different assay methods or kits cannot be used interchangeably. Performed By: #### 2 333-3 ####[facility] LABCLIA [id number] [address] OF [facility] SEROTONIN BLDon 01-20-2025 SEROTONIN SERUM 1726 ng/mL High 50-220 [facility] Comment on above: Order Comment: Speci men Type: BLOOD SPECIMENOrdering Facility: [facility] Address: [address] [place] [address] Result Comment: TEST INFORMATION: Serotonin, SerumThis test was developed and its performance characteristicsdetermined by [facility]. It has not been cleared orapproved by the [place] Food and Drug Administration. This test wasperformed in a CLIA certified laboratory and is intended forclinical purposes.Performed By: [facility] [place], [place] [address]Gnygxyxynq Director: Santosh Hollis MD, PhDCLIA Number: [id number] Performed By: #### S ERTON ####[facility] LABORATORIESIA [id number] [place] [address] VASOACTIVE INTESTINAL POLYPE PTIDE (VIP), PLASMAon 01-20-2025 VASOACTIVE INTESTINAL POLYPEPTIDE <20.0 Normal 0.0-89.1 [facility] Comment on above: Order Comment: Speci men Type: BLOOD SPECIMENOrdering Facility: [facility] Address: [address] [place] [address] Result Comment: This test was developed and its performance characteristicsdetermined by [facility]. It has not been cleared orapproved by the U.S. Food and Drug Administration. This test wasperformed in a CLIA-certified laboratory and is intended forclinical purposes.Performed By: [facility] [address] [place] [id number] Director: Santosh Hollis MD, PhDCLIA Number: [id number] Performed By: #### V IP ####[facility] SOUTHIA [id number] [place] [address] CBC W Auto Differential pane l (Bld)on 12-30-2024 Basophils (Bld) [#/Vol] 0.04 10*3/uL Normal <0.11 [facility] Comment on above: Order Comment: Speci men Type: BLOOD SPECIMENOrdering Facility: [facility] Address: [address] [place] [address] Performed By: #### 5 7021-8 ####[facility] LABCLIA [id number] [place] [address] Basophils/100 WBC (Bld) 1.1 % Normal [facility] Comment on above: Order Comment: Speci men Type: BLOOD SPECIMENOrdering Facility: [facility] Address: [address] [place] [address] Performed By: #### 5 7021-8 ####[facility] LABCLIA [id number] [place] [address] Differential cell count method Nom (Bld) Auto Normal [facility] Comment on above: Order Comment: Speci men Type: BLOOD SPECIMENOrdering Facility: [facility] Address: [address] [place] [address] Performed By: #### 5 7021-8 ####[facility] LABCLIA [id number] [place] [address] Eosinophils (Bld) [#/Vol] 0.13 10*3/uL Normal <0.46 [facility] Comment on above: Order Comment: Speci men Type: BLOOD SPECIMENOrdering Facility: [facility] Address: [address] [place] [address] Performed By: #### 5 7021-8 ####[facility] LABCLIA [id number] [place] [address] Eosinophils/100 WBC (Bld) 3.7 % Normal [facility] Comment on above: Order Comment: Speci men Type: BLOOD SPECIMENOrdering Facility: [facility] Address: [address] [place] [address] Performed By: #### 5 7021-8 ####[facility] LABCLIA [id number] [place] [address] Erythrocyte distribution width (RBC) [Ratio] 18.3 % High 11.5-15.0 [facility] Comment on above: Order Comment: Speci men Type: BLOOD SPECIMENOrdering Facility: [facility] Address: [address] [place] [address] Performed By: #### 5 7021-8 ####[facility] LABCLIA [id number] [place] [address] Hematocrit (Bld) [Volume fraction] 33.7 % Low 39.0-51.0 [facility] Comment on above: Order Comment: Speci men Type: BLOOD SPECIMENOrdering Facility: [facility] Address: [address] [place] [address] Performed By: #### 5 7021-8 ####[facility] LABCLIA [id number] [place] [address] Hemoglobin (Bld) [Mass/Vol] 10.3 g/dL Low 13.0-17.0 [facility] Comment on above: Order Comment: Speci men Type: BLOOD SPECIMENOrdering Facility: [facility] Address: [address] [place] [address] Performed By: #### 5 7021-8 ####[facility] LABCLIA [id number] [place] [address] Immature granulocytes (Bld) [#/Vol] 10*3/uL Normal <0.10 [facility] Comment on above: Order Comment: Speci men Type: BLOOD SPECIMENOrdering Facility: [facility] Address: [address] [place] [address] Performed By: #### 5 7021-8 ####[facility] LABCLIA [id number] [place] [address] Immature granulocytes/100 WBC (Bld) 0.3 % Normal [facility] Comment on above: Order Comment: Speci men Type: BLOOD SPECIMENOrdering Facility: [facility] Address: [address] [place] [address] Performed By: #### 5 7021-8 ####[facility] LABCLIA [id number] [place] [address] Lymphocytes (Bld) [#/Vol] 0.37 10*3/uL Low 1.00-4.00 [facility] Comment on above: Order Comment: Speci men Type: BLOOD SPECIMENOrdering Facility: [facility] Address: [address] [place] [address] Performed By: #### 5 7021-8 ####[facility] LABCLIA [id number] [place] [address] Lymphocytes/100 WBC (Bld) 10.5 % Normal [facility] Comment on above: Order Comment: Speci men Type: BLOOD SPECIMENOrdering Facility: [facility] Address: [address] [place] [address] Performed By: #### 5 7021-8 ####[facility] LABIA [id number] [place] [address] MCH (RBC) [Entitic mass] 29.1 pg Normal 26.0-34.0 [facility] Comment on above: Order Comment: Speci men Type: BLOOD SPECIMENOrdering Facility: [facility] Address: [address] [place] [address] Performed By: #### 5 7021-8 ####[facility] LABCLIA [id number] [place] [address] MCHC (RBC) [Mass/Vol] 30.6 g/dL Normal 30.5-36.0 [facility] Comment on above: Order Comment: Speci men Type: BLOOD SPECIMENOrdering Facility: [facility] Address: [address] [place] [address] Performed By: #### 5 7021-8 ####[facility] LABCLIA [id number] [place] [address] MCV (RBC) [Entitic vol] 95.2 fL Normal 80.0-100.0 [facility] Comment on above: Order Comment: Speci men Type: BLOOD SPECIMENOrdering Facility: [facility] Address: [address] [place] [address] Performed By: #### 5 7021-8 ####[facility] LABIA [id number] [place] [address] Monocytes (Bld) [#/Vol] 0.51 10*3/uL Normal <0.87 [facility] Comment on above: Order Comment: Speci men Type: BLOOD SPECIMENOrdering Facility: [facility] Address: [address] [place] [address] Performed By: #### 5 7021-8 ####[facility] LABCLIA [id number] [place] [address] Monocytes/100 WBC (Bld) 14.5 % Normal C [facility] Comment on above: Order Comment: Speci men Type: BLOOD SPECIMENOrdering Facility: [facility] Address: [address] [place] [address] Performed By: #### 5 7021-8 ####[facility] LABCLIA [id number] [place] [address] Neutrophils (Bld) [#/Vol] 2.45 10*3/uL Normal 1.45-7.50 [facility] Comment on above: Order Comment: Speci men Type: BLOOD SPECIMENOrdering Facility: [facility] Address: [address] [place] [address] Performed By: #### 5 7021-8 ####[facility] LABCLIA [id number] [place] [address] Neutrophils/100 WBC (Bld) 69.9 % Normal [facility] Comment on above: Order Comment: Speci men Type: BLOOD SPECIMENOrdering Facility: [facility] Address: [address] [place] [address] Performed By: #### 5 7021-8 ####[facility] LABCLIA [id number] [place] [address] Nucleated RBC (Bld) [#/Vol] 10*3/uL Normal <0.01 [facility] Comment on above: Order Comment: Speci men Type: BLOOD SPECIMENOrdering Facility: [facility] Address: [address] [place] [address] Performed By: #### 5 7021-8 ####[facility] LABCLIA [id number] [place] [address] Nucleated RBC/100 WBC (Bld) [Ratio] 0.0 /100 WBC Normal [facility] Comment on above: Order Comment: Speci men Type: BLOOD SPECIMENOrdering Facility: [facility] Address: [address] [place] [address] Performed By: #### 5 7021-8 ####[facility] LABCLIA [id number] [place] [address] Platelet mean volume (Bld) [Entitic vol] 9.9 fL Normal 9.0-12.7 [facility] Comment on above: Order Comment: Speci men Type: BLOOD SPECIMENOrdering Facility: [facility] Address: [address] [place] [address] Performed By: #### 5 7021-8 ####[facility] LABCLIA [id number] [place] [address] Platelets (Bld) [#/Vol] 208 10*3/uL Normal 150-400 [facility] Comment on above: Order Comment: Speci men Type: BLOOD SPECIMENOrdering Facility: [facility] Address: [address] [place] [address] Performed By: #### 5 7021-8 ####[facility] LABCLIA [id number] [place] [address] RBC (Bld) [#/Vol] 3.54 10*6/uL Low 4.20-6.00 [facility] Comment on above: Order Comment: Speci men Type: BLOOD SPECIMENOrdering Facility: [facility] Address: [address] [place] [address] Performed By: #### 5 7021-8 ####[facility] LABIA [id number] [place] [address] WBC (Bld) [#/Vol] 3.51 10*3/uL Low 3.70-11.00 [facility] Comment on above: Order Comment: Speci men Type: BLOOD SPECIMENOrdering Facility: [facility] Address: [address] [place] [address] Performed By: #### 5 7021-8 ####[facility] LABIA [id number] [place] [address] [facility] CBC W AUTO DIFF BLDon Basophils/100 WBC (Bld) 1.1 % [facility] BASOPHILS # BLD AUTO 0.04 [facility] DIFFERENTIAL METHOD BLD Auto [facility] EOSINOPHIL # BLD AUTO 0.13 [facility] LYMPHOCYTES # BLD AUTO 0.37 Low [facility] MONOCYTES # BLD AUTO 0.51 [facility] NEUTROPHILS # BLD AUTO 2.45 [facility] NRBC # BLD AUTO <0.01 [facility] NRBC/100 WBC BLD-RTO 0 /100 WBC [facility] PLATELET # BLD AUTO 208 [facility] PMV BLD AUTO 9.9 fL 9.0 - 12.7 fL [facility] WBC # BLD AUTO 3.51 Low [facility] Eosinophils/100 WBC (Bld) 3.7 % [facility] Erythrocyte distribution width (RBC) [Ratio] 18.3 % High 11.5 - 15.0 % [facility] Hematocrit (Bld) [Volume fraction] 33.7 % Low 39.0 - 51.0 % [facility] Hemoglobin (Bld) [Mass/Vol] 10.3 g/dL Low 13.0 - 17.0 g/dL [facility] IMM GRANULOCYTES # BLD AUTO <0.03 [facility] IMM GRANULOCYTES/LEUK NFR BLD AUTO 0.3 % [facility] Interpretation and review of laboratory results Abnormal [facility] Lymphocytes/100 WBC (Bld) 10.5 % [facility] MCH (RBC) [Entitic mass] 29.1 pg 26.0 - 34.0 pg [facility] MCHC (RBC) [Mass/Vol] 30.6 g/dL 30.5 - 36.0 g/dL [facility] MCV (RBC) [Entitic vol] 95.2 fL 80.0 - 100.0 fL [facility] Monocytes/100 WBC (Bld) 14.5 % [facility] Neutrophils/100 WBC (Bld) 69.9 % [facility] RBC (Bld) [#/Vol] 3.54 10*6/uL Low 4.20 - 6.00 m/uL [facility] Specimen Type: BLOOD SPECIMEN [facility] Address: [address] [place] [address] Original Ordering Provider: ROSELYN RAMIREZ [facility] CgA Mike 12-30-2024 Chromogranin A [Mass/Vol] 224.8 ng/mL High <187.0 [facility] Comment on above: Order Comment: Speci men Type: BLOOD SPECIMENOrdering Facility: [facility] Address: [address] [place] [address] Result Comment: The Chromogranin A test was performed using the BRAHMS CgA II KRYPTOR method. Results obtained with different assay methods or kits cannot be used interchangeably. Performed By: #### 9 811-1 ####[facility] LABCLIA [id number] [place] [address] [facility] [place] Comprehensive metabolic 2000 panelon 12-30-2024 Albumin [Mass/Vol] 4.1 g/dL Normal 3.9-4.9 [facility] Comment on above: Order Comment: Speci men Type: BLOOD SPECIMENOrdering Facility: [facility] Address: [address] [place] [address] Performed By: #### 2 4323-8 ####[facility] LABCLIA [id number] [place] [address] ALP [Catalytic activity/Vol] 151 U/L High 38-113 [facility] Comment on above: Order Comment: Speci men Type: BLOOD SPECIMENOrdering Facility: [facility] Address: [address] [place] [address] Performed By: #### 2 4323-8 ####[facility] LABCLIA [id number] [place] [address] ALT [Catalytic activity/Vol] 14 U/L Normal 10-54 [facility] Comment on above: Order Comment: Speci men Type: BLOOD SPECIMENOrdering Facility: [facility] Address: [address] [place] [address] Performed By: #### 2 4323-8 ####[facility] LABCLIA [id number] [place] [address] Anion gap [Moles/Vol] 11 mmol/L Normal 8-15 [facility] Comment on above: Order Comment: Speci men Type: BLOOD SPECIMENOrdering Facility: [facility] Address: [address] [place] [address] Performed By: #### 2 4323-8 ####[facility] LABCLIA [id number] [place] [address] AST [Catalytic activity/Vol] 28 U/L Normal 14-40 [facility] Comment on above: Order Comment: Speci men Type: BLOOD SPECIMENOrdering Facility: [facility] Address: [address] [place] [address] Performed By: #### 2 4323-8 ####[facility] LABCLIA [id number] [place] [address] Bilirubin [Mass/Vol] 0.3 mg/dL Normal 0.2-1.3 [facility] Comment on above: Order Comment: Speci men Type: BLOOD SPECIMENOrdering Facility: [facility] Address: [address] [place] [address] Performed By: #### 2 4323-8 ####[facility] LABCLIA [id number] [place] [address] Calcium [Mass/Vol] 8.2 mg/dL Low 8.5-10.2 [facility] Comment on above: Order Comment: Speci men Type: BLOOD SPECIMENOrdering Facility: [facility] Address: [address] [place] [address] Performed By: #### 2 4323-8 ####[facility] LABCLIA [id number] [place] [address] Chloride [Moles/Vol] 113 mmol/L High 98-107 [facility] Comment on above: Order Comment: Speci men Type: BLOOD SPECIMENOrdering Facility: [facility] Address: [address] [place] [address] Performed By: #### 2 4323-8 ####[facility] LABCLIA [id number] [place] [address] CO2 [Moles/Vol] 17 mmol/L Low 22-30 [facility] Comment on above: Order Comment: Speci men Type: BLOOD SPECIMENOrdering Facility: [facility] Address: [address] [place] [address] Performed By: #### 2 4323-8 ####[facility] LABCLIA [id number] [place] [address] Creatinine [Mass/Vol] 1.20 mg/dL Normal 0.73-1.22 [facility] Comment on above: Order Comment: Arben suarez Type: BLOOD SPECIMENOrdering Facility: [facility] Address: [address] [place] [address] Performed By: #### 2 4323-8 ####[facility] LABCLIA [id number] [place] [address] Creatinine and Glomerular filtration rate.predicted panel (S/P/Bld) 65 mL/min/1.73m??? Normal >=60 [facility] Comment on above: Order Comment: rAben suarez Type: BLOOD SPECIMENOrdering Facility: [facility] Address: [address] [place] [address] Result Comment: Bailey mated Glomerular Filtration Rate [...] reflect actual GFR. Performed By: #### 2 4323-8 ####[facility] LABCLIA [id number] [place] [address] Glucose [Mass/Vol] 87 mg/dL Normal 74-99 [facility] Comment on above: Order Comment: Arben suarez Type: BLOOD SPECIMENOrdering Facility: [facility] Address: [address] [place], [place] [address] Result Comment: The [place] [employer] (ADA) provides guidance for cutoff [...] Standards of Medical Care in Diabetes 2016, [place] [employer]. Diabetes Care. 2016.39(Suppl 1). Performed By: #### 2 4323-8 ####[facility] LABCLIA [id number] [place] [address] Potassium [Moles/Vol] 4.9 mmol/L Normal 3.7-5.1 [facility] Comment on above: Order Comment: Speci men Type: BLOOD SPECIMENOrdering Facility: [facility] Address: [address] [place] [address] Performed By: #### 2 4323-8 ####[facility] LABCLIA [id number] [place] [address] Protein [Mass/Vol] 6.5 g/dL Normal 6.3-8.0 [facility] Comment on above: Order Comment: Speci men Type: BLOOD SPECIMENOrdering Facility: [facility] Address: [address] [place] [address] Performed By: #### 2 4323-8 ####[facility] LABCLIA [id number] [place] [address] Sodium [Moles/Vol] 141 mmol/L Normal 136-144 [facility] Comment on above: Order Comment: Speci men Type: BLOOD SPECIMENOrdering Facility: [facility] Address: [address] [place] [address] Performed By: #### 2 4323-8 ####[facility] LABCLIA [id number] [place] [address] Urea nitrogen [Mass/Vol] 16 mg/dL Normal 9-24 [facility] Comment on above: Order Comment: Speci men Type: BLOOD SPECIMENOrdering Facility: [facility] Address: [address] [place] [address] Performed By: #### 2 4323-8 ####[facility] LABCLIA [id number] [place] [address] Gastrin SerPl-mCncon 025 Gastrin [Mass/Vol] 57.3 pg/mL Normal <115.0 [facility] Comment on above: Order Comment: Speci men Type: BLOOD SPECIMENOrdering Facility: [facility] Address: [address] [place] [address] Result Comment: The Gastrin test was performed using the Siemens Immulite chemiluminescent immunometric method. Results obtained with different assay methods or kits cannot be used interchangeably. Performed By: #### 2 333-3 ####[facility] LABCLIA [id number] [place] [address] [place] SEROTONIN BLDon 12-30-2024 SEROTONIN SERUM 1352 ng/mL High 50-220 [facility] Comment on above: Order Comment: Speci men Type: BLOOD SPECIMENOrdering Facility: [facility] Address: [address] [place] [address] Result Comment: Orig inally reported on 01-02-2025 / 15:19 (Date/Mountain Time).Reference intervals and/or result interpretation may have changed.TEST INFORMATION: Serotonin, SerumThis test was developed and its performance characteristicsdetermined by [facility]. It has not been cleared orapproved by the [place] Food and Drug Administration. This test wasperformed in a CLIA certified laboratory and is intended forclinical purposes.Corrected from 1734 ng/mL [HI] on 01/11/25 15:33:23 [place] [id number].Performed By: [facility] [place], [place] [address] Director: Santosh Hollis MD, PhDCLIA Number: [id number] Performed By: #### S ERTON ####[facility] [employer]ideIA [id number] [place] [address] VASOACTIVE INTESTINAL POLYPE PTIDE (VIP), PLASMAon 12-30-2024 VASOACTIVE INTESTINAL POLYPEPTIDE 22.6 pg/mL Normal 0.0-89.1 [facility] Comment on above: Order Comment: Speci men Type: BLOOD SPECIMENOrdering Facility: [facility] Address: [address] [place] [address] Result Comment: This test was developed and its performance characteristicsdetermined by [facility]. It has not been cleared orapproved by the U.S. Food and Drug Administration. This test wasperformed in a CLIA-certified laboratory and is intended forclinical purposes.Performed By: [facility] [address] [place], [place] [address]Fezkffmpks Director: Santosh Hollis MD, PhDCLIA Number: [id number] Performed By: #### V IP ####[facility] S[facility]THIA [id number] [place] [address] CBC W Auto Differential pane l (Bld)on 12-20-2024 Basophils (Bld) [#/Vol] 0.04 10*3/uL Normal <0.11 [facility] Comment on above: Order Comment: Speci men Type: BLOOD SPECIMENOrdering Facility: [facility] Address: [address] [place] [address] Performed By: #### 5 7021-8 ####[facility] LABCLIA [id number] [place] [address] Basophils/100 WBC (Bld) 0.9 % Normal C [facility] Comment on above: Order Comment: Speci men Type: BLOOD SPECIMENOrdering Facility: [facility] Address: [address] [place] [address] Performed By: #### 5 7021-8 ####[facility] LABCLIA [id number] [place] [address] Differential cell count method Nom (Bld) Auto Normal [facility] Comment on above: Order Comment: Speci men Type: BLOOD SPECIMENOrdering Facility: [facility] Address: [address] [place] [address] Performed By: #### 5 7021-8 ####[facility] LABCLIA [id number] [place] [address] Eosinophils (Bld) [#/Vol] 0.16 10*3/uL Normal <0.46 [facility] Comment on above: Order Comment: Speci men Type: BLOOD SPECIMENOrdering Facility: [facility] Address: [address] [place] [address] Performed By: #### 5 7021-8 ####[facility] LABCLIA [id number] [place] [address] Eosinophils/100 WBC (Bld) 3.7 % Normal [facility] Comment on above: Order Comment: Speci men Type: BLOOD SPECIMENOrdering Facility: [facility] Address: [address] [place] [address] Performed By: #### 5 7021-8 ####[facility] LABCLIA [id number] [place] [address] Erythrocyte distribution width (RBC) [Ratio] 16.1 % High 11.5-15.0 [facility] Comment on above: Order Comment: Speci men Type: BLOOD SPECIMENOrdering Facility: [facility] Address: [address] [place] [address] Performed By: #### 5 7021-8 ####[facility] LABCLIA [id number] [place] [address] Hematocrit (Bld) [Volume fraction] 26.9 % Low 39.0-51.0 [facility] Comment on above: Order Comment: Speci men Type: BLOOD SPECIMENOrdering Facility: [facility] Address: [address] [place] [address] Performed By: #### 5 7021-8 ####[facility] LABCLIA [id number] [place] [address] Hemoglobin (Bld) [Mass/Vol] 8.3 g/dL Low 13.0-17.0 [facility] Comment on above: Order Comment: Speci men Type: BLOOD SPECIMENOrdering Facility: [facility] Address: [address] [place] [address] Performed By: #### 5 7021-8 ####[facility] LABCLIA [id number] [place] [address] Immature granulocytes (Bld) [#/Vol] 0.04 10*3/uL Normal <0.10 [facility] Comment on above: Order Comment: Speci men Type: BLOOD SPECIMENOrdering Facility: [facility] Address: [address] [place] [address] Performed By: #### 5 7021-8 ####[facility] LABCLIA [id number] [place] [address] Immature granulocytes/100 WBC (Bld) 0.9 % Normal [facility] Comment on above: Order Comment: Speci men Type: BLOOD SPECIMENOrdering Facility: [facility] Address: [address] [place] [address] Performed By: #### 5 7021-8 ####[facility] LABCLIA [id number] [place] [address] Lymphocytes (Bld) [#/Vol] 0.35 10*3/uL Low 1.00-4.00 [facility] Comment on above: Order Comment: Speci men Type: BLOOD SPECIMENOrdering Facility: [facility] Address: [address] [place] [address] Performed By: #### 5 7021-8 ####[facility] LABCLIA [id number] [place] [address] Lymphocytes/100 WBC (Bld) 8.1 % Normal [facility] Comment on above: Order Comment: Speci men Type: BLOOD SPECIMENOrdering Facility: [facility] Address: [address] [place] [address] Performed By: #### 5 7021-8 ####[facility] LABCLIA [id number] [place] [address] MCH (RBC) [Entitic mass] 28.5 pg Normal 26.0-34.0 [facility] Comment on above: Order Comment: Speci men Type: BLOOD SPECIMENOrdering Facility: [facility] Address: [address] [place] [address] Performed By: #### 5 7021-8 ####[facility] LABCLIA [id number] [place] [address] MCHC (RBC) [Mass/Vol] 30.9 g/dL Normal 30.5-36.0 [facility] Comment on above: Order Comment: Speci men Type: BLOOD SPECIMENOrdering Facility: [facility] Address: [address] [place] [address] Performed By: #### 5 7021-8 ####[facility] LABCLIA [id number] [place] [address] MCV (RBC) [Entitic vol] 92.4 fL Normal 80.0-100.0 C [facility] Comment on above: Order Comment: Speci men Type: BLOOD SPECIMENOrdering Facility: [facility] Address: [address] [place] [address] Performed By: #### 5 7021-8 ####[facility] LABCLIA [id number] [place] [address] Monocytes (Bld) [#/Vol] 0.65 10*3/uL Normal <0.87 [facility] Comment on above: Order Comment: Speci men Type: BLOOD SPECIMENOrdering Facility: [facility] Address: [address] [place] [address] Performed By: #### 5 7021-8 ####[facility] LABCLIA [id number] [place] [address] Monocytes/100 WBC (Bld) 15.0 % Normal C [facility] Comment on above: Order Comment: Speci men Type: BLOOD SPECIMENOrdering Facility: [facility] Address: [address] [place] [address] Performed By: #### 5 7021-8 ####[facility] LABCLIA [id number] [place] [address] Neutrophils (Bld) [#/Vol] 3.08 10*3/uL Normal 1.45-7.50 [facility] Comment on above: Order Comment: Speci men Type: BLOOD SPECIMENOrdering Facility: [facility] Address: [address] [place] [address] Performed By: #### 5 7021-8 ####[facility] LABCLIA [id number] [place] [address] Neutrophils/100 WBC (Bld) 71.4 % Normal [facility] Comment on above: Order Comment: Speci men Type: BLOOD SPECIMENOrdering Facility: [facility] Address: [address] [place] [address] Performed By: #### 5 7021-8 ####[facility] LABCLIA [id number] [place] [address] Nucleated RBC (Bld) [#/Vol] 10*3/uL Normal <0.01 [facility] Comment on above: Order Comment: Speci men Type: BLOOD SPECIMENOrdering Facility: [facility] Address: [address] [place] [address] Performed By: #### 5 7021-8 ####[facility] LABCLIA [id number] [place] [address] Nucleated RBC/100 WBC (Bld) [Ratio] 0.0 /100 WBC Normal [facility] Comment on above: Order Comment: Speci men Type: BLOOD SPECIMENOrdering Facility: [facility] Address: [address] [place] [address] Performed By: #### 5 7021-8 ####[facility] LABCLIA [id number] [place] [address] Platelet mean volume (Bld) [Entitic vol] 9.4 fL Normal 9.0-12.7 [facility] Comment on above: Order Comment: Speci men Type: BLOOD SPECIMENOrdering Facility: [facility] Address: [address] [place] [address] Performed By: #### 5 7021-8 ####[facility] LABCLIA [id number] [place] [address] Platelets (Bld) [#/Vol] 281 10*3/uL Normal 150-400 [facility] Comment on above: Order Comment: Speci men Type: BLOOD SPECIMENOrdering Facility: [facility] Address: [address] [place] [address] Performed By: #### 5 7021-8 ####[facility] LABCLIA [id number] [place] [address] RBC (Bld) [#/Vol] 2.91 10*6/uL Low 4.20-6.00 [facility] Comment on above: Order Comment: Speci men Type: BLOOD SPECIMENOrdering Facility: [facility] Address: [address] [place] [address] Performed By: #### 5 7021-8 ####[facility] LABIA [id number] [place] [address] WBC (Bld) [#/Vol] 4.32 10*3/uL Normal 3.70-11.00 [facility] Comment on above: Order Comment: Speci men Type: BLOOD SPECIMENOrdering Facility: [facility] Address: [address] [place] [address] Performed By: #### 5 7021-8 ####[facility] LABCLIA [id number] [place] [address] [facility] CBC W AUTO DIFF BLDon Basophils/100 WBC (Bld) 0.9 % [facility] BASOPHILS # BLD AUTO 0.04 [facility] DIFFERENTIAL METHOD BLD Auto [facility] EOSINOPHIL # BLD AUTO 0.16 [facility] LYMPHOCYTES # BLD AUTO 0.35 Low [facility] MONOCYTES # BLD AUTO 0.65 [facility] NEUTROPHILS # BLD AUTO 3.08 [facility] NRBC # BLD [facility]O <0.01 [facility] NRBC/100 WBC BLD-RTO 0 /100 WBC [facility] PLATELET # BLD AUTO 281 [facility] PMV BLD AUTO 9.4 fL 9.0 - 12.7 fL [facility] WBC # BLD AUTO 4.32 [facility] Eosinophils/100 WBC (Bld) 3.7 % [facility] Erythrocyte distribution width (RBC) [Ratio] 16.1 % High 11.5 - 15.0 % [facility] Hematocrit (Bld) [Volume fraction] 26.9 % Low 39.0 - 51.0 % [facility] Hemoglobin (Bld) [Mass/Vol] 8.3 g/dL Low 13.0 - 17.0 g/dL [facility] IMM GRANULOCYTES # BLD AUTO 0.04 [facility] IMM GRANULOCYTES/LEUK NFR BLD AUTO 0.9 % [facility] Interpretation and review of laboratory results Abnormal [facility] Lymphocytes/100 WBC (Bld) 8.1 % [facility] MCH (RBC) [Entitic mass] 28.5 pg 26.0 - 34.0 pg [facility] MCHC (RBC) [Mass/Vol] 30.9 g/dL 30.5 - 36.0 g/dL [facility] MCV (RBC) [Entitic vol] 92.4 fL 80.0 - 100.0 fL [facility] Monocytes/100 WBC (Bld) 15 % [facility] Neutrophils/100 WBC (Bld) 71.4 % [facility] RBC (Bld) [#/Vol] 2.91 10*6/uL Low 4.20 - 6.00 m/uL [facility] Specimen Type: BLOOD SPECIMEN Ordering Facility: [facility] Address: [address] [place] [address] Original Ordering Provider: ROSELYN RAMIREZ [facility] Comprehensive metabolic 2000 panelon 12-20-2024 Albumin [Mass/Vol] 4.0 g/dL Normal 3.9-4.9 [facility] Comment on above: Order Comment: Speci men Type: BLOOD SPECIMENOrdering Facility: [facility] Address: [address] [place], [place] [address] Performed By: #### 2 4323-8 ####[facility] LABCLIA [id number] [place] [address] ALP [Catalytic activity/Vol] 138 U/L High 38-113 [facility] Comment on above: Order Comment: Speci men Type: BLOOD SPECIMENOrdering Facility: [facility] Address: [address] [place] [address] Performed By: #### 2 4323-8 ####[facility] LABCLIA [id number] [place] [address] ALT [Catalytic activity/Vol] 11 U/L Normal 10-54 [facility] Comment on above: Order Comment: Speci men Type: BLOOD SPECIMENOrdering Facility: [facility] Address: [address] [place] [address] Performed By: #### 2 4323-8 ####[facility] LABCLIA [id number] [place] [address] Anion gap [Moles/Vol] 10 mmol/L Normal 8-15 [facility] Comment on above: Order Comment: Speci men Type: BLOOD SPECIMENOrdering Facility: [facility] Address: [address] [place] [address] Performed By: #### 2 4323-8 ####[facility] LABCLIA [id number] [place] [address] AST [Catalytic activity/Vol] 21 U/L Normal 14-40 [facility] Comment on above: Order Comment: Speci men Type: BLOOD SPECIMENOrdering Facility: [facility] Address: [address] [place], [place] [address] Performed By: #### 2 4323-8 ####[facility] LABCLIA [id number] [place] [address] Bilirubin [Mass/Vol] 0.3 mg/dL Normal 0.2-1.3 [facility] Comment on above: Order Comment: Speci men Type: BLOOD SPECIMENOrdering Facility: [facility] Address: [address] [place] [address] Performed By: #### 2 4323-8 ####[facility] LABCLIA [id number] [place] [address] Calcium [Mass/Vol] 8.9 mg/dL Normal 8.5-10.2 [facility] Comment on above: Order Comment: Speci men Type: BLOOD SPECIMENOrdering Facility: [facility] Address: [address] [place] [address] Performed By: #### 2 4323-8 ####[facility] LABCLIA [id number] [place] [address] Chloride [Moles/Vol] 113 mmol/L High 98-107 [facility] Comment on above: Order Comment: Speci men Type: BLOOD SPECIMENOrdering Facility: [facility] Address: [address] [place] [address] Performed By: #### 2 4323-8 ####[facility] LABCLIA [id number] [place] [address] CO2 [Moles/Vol] 21 mmol/L Low 22-30 [facility] Comment on above: Order Comment: Speci men Type: BLOOD SPECIMENOrdering Facility: [facility] Address: [address] [place] [address] Performed By: #### 2 4323-8 ####[facility] LABCLIA [id number] [place] [address] Creatinine [Mass/Vol] 1.16 mg/dL Normal 0.73-1.22 [facility] Comment on above: Order Comment: Speci men Type: BLOOD SPECIMENOrdering Facility: [facility] Address: [address] [place] [address] Performed By: #### 2 4323-8 ####[facility] LABCLIA [id number] [place] [address] Creatinine and Glomerular filtration rate.predicted panel (S/P/Bld) 68 mL/min/1.73m??? Normal >=60 [facility] Comment on above: Order Comment: Arben suarez Type: BLOOD SPECIMENOrdering Facility: [facility] Address: [address] [place] [place] [id number] Result Comment: Bailey mated Glomerular Filtration Rate [...] reflect actual GFR. Performed By: #### 2 4323-8 ####[facility] LABCLIA [id number] [place] [address] Glucose [Mass/Vol] 107 mg/dL High 74-99 [facility] Comment on above: Order Comment: Arben suarez Type: BLOOD SPECIMENOrdering Facility: [facility] Address: [address] [place], [place] [address] Result Comment: The [place] [employer] (ADA) provides guidance for cutoff [...] Standards of Medical Care in Diabetes 2016, [place] [employer]. Diabetes Care. 2016.39(Suppl 1). Performed By: #### 2 4323-8 ####[facility] LABCLIA [id number] [place] [address] Potassium [Moles/Vol] 5.0 mmol/L Normal 3.7-5.1 [facility] Comment on above: Order Comment: Arben suarez Type: BLOOD SPECIMENOrdering Facility: [facility] Address: [address] [place], [place] [address] Performed By: #### 2 4323-8 ####[facility] LABCLIA [id number] [place] [address] Protein [Mass/Vol] 6.7 g/dL Normal 6.3-8.0 [facility] Comment on above: Order Comment: Speci men Type: BLOOD SPECIMENOrdering Facility: [facility] Address: [address] [place] [address] Performed By: #### 2 4323-8 ####[facility] LABCLIA [id number] [place] [address] Sodium [Moles/Vol] 144 mmol/L Normal 136-144 [facility] Comment on above: Order Comment: Speci men Type: BLOOD SPECIMENOrdering Facility: [facility] Address: [address] [place] [address] Performed By: #### 2 4323-8 ####[facility] LABCLIA [id number] [place] [address] Urea nitrogen [Mass/Vol] 12 mg/dL Normal 9-24 [facility] Comment on above: Order Comment: Speci men Type: BLOOD SPECIMENOrdering Facility: [facility] Address: [address] [place] [address] Performed By: #### 2 4323-8 ####[facility] LABCLIA [id number] [place] [address] Ferritin [facility] Ferritin [Mass/Vol] 266.0 ng/mL Normal 30.3-565.7 [facility] Comment on above: Order Comment: Speci men Type: BLOOD SPECIMENOrdering Facility: [facility] Address: [address] [place] [address] Performed By: #### 2 132-9, 40902-3, 2284-8, 2276-4 ####[facility] LABCLIA [id number] [address] [address] [place] Folate SerPl-mCncon 12-21-19 Folate [Mass/Vol] 4.8 ng/mL Normal >4.7 [facility] Comment on above: Order Comment: Speci men Type: BLOOD SPECIMENOrdering Facility: [facility] Address: [address] [place] [address] Performed By: #### 2 132-9, 80992-2, 4-8, 6-4 ####[facility] LABCLIA [id number] [place] [id number] [place] Iron and Iron binding capaci ty panelon 12-20-2024 Iron [Mass/Vol] 350 ug/dL High 41-186 [facility] Comment on above: Order Comment: Speci men Type: BLOOD SPECIMENOrdering Facility: [facility] Address: [address] [place] [address] Performed By: #### 2 132-9, 31693-0, 4-8, 6-4 ####[facility] LABIA [id number] [place] [address] [place] Iron binding capacity [Mass/Vol] 499 ug/dL High 232-386 [facility] Comment on above: Order Comment: Speci men Type: BLOOD SPECIMENOrdering Facility: [facility] Address: [address] [place] [address] Performed By: #### 2 132-9, 16865-9, 4-8, 6-4 ####[facility] LABIA [id number] [address] [address] [place] Iron/TIBC [Molar ratio] 70.1 % High 15.0-57.0 [facility] Comment on above: Order Comment: Speci men Type: BLOOD SPECIMENOrdering Facility: [facility] Address: [address] [place] [address] Performed By: #### 2 132-9, 74367-1, 4-8, 6-4 ####[facility] LABCLIA [id number] [place] [id number] [place] Vit B12 [facility] 025 Cobalamin (Vitamin B12) [Mass/Vol] 763 pg/mL Normal 232-1245 [facility] Comment on above: Order Comment: Speci men Type: BLOOD SPECIMENOrdering Facility: [facility] Address: [address] [place] [address] Performed By: #### 2 132-9, 32207-0, 2284-8, 6-4 ####[facility] LABCLIA [id number] [place] [address] [place] CBC W Auto Differential pane l (Bld)on 12-09-2024 Basophils (Bld) [#/Vol] 0.03 10*3/uL Normal <0.11 [facility] Comment on above: Order Comment: Speci men Type: BLOOD SPECIMENOrdering Facility: [facility] Address: [address] [place] [address] Performed By: #### 5 7021-8 ####[facility] LABCLIA [id number] [place] [address] Basophils/100 WBC (Bld) 0.6 % Normal [facility] Comment on above: Order Comment: Speci men Type: BLOOD SPECIMENOrdering Facility: [facility] Address: [address] [place] [address] Performed By: #### 5 7021-8 ####[facility] LABCLIA [id number] [place] [address] Differential cell count method Nom (Bld) Auto Normal [facility] Comment on above: Order Comment: Speci men Type: BLOOD SPECIMENOrdering Facility: [facility] Address: [address] [place] [address] Performed By: #### 5 7021-8 ####[facility] LABCLIA [id number] [place] [address] Eosinophils (Bld) [#/Vol] 0.25 10*3/uL Normal <0.46 [facility] Comment on above: Order Comment: Speci men Type: BLOOD SPECIMENOrdering Facility: [facility] Address: [address] [place] [address] Performed By: #### 5 7021-8 ####[facility] LABCLIA [id number] [place] [address] Eosinophils/100 WBC (Bld) 5.4 % Normal [facility] Comment on above: Order Comment: Speci men Type: BLOOD SPECIMENOrdering Facility: [facility] Address: [address] [place] [address] Performed By: #### 5 7021-8 ####[facility] LABCLIA [id number] [place] [address] Erythrocyte distribution width (RBC) [Ratio] 15.5 % High 11.5-15.0 [facility] Comment on above: Order Comment: Speci men Type: BLOOD SPECIMENOrdering Facility: [facility] Address: [address] [place] [address] Performed By: #### 5 7021-8 ####[facility] LABCLIA [id number] [place] [address] Hematocrit (Bld) [Volume fraction] 24.3 % Low 39.0-51.0 [facility] Comment on above: Order Comment: Speci men Type: BLOOD SPECIMENOrdering Facility: [facility] Address: [address] [place] [address] Performed By: #### 5 7021-8 ####[facility] LABCLIA [id number] [place] [address] Hemoglobin (Bld) [Mass/Vol] 7.5 g/dL Low 13.0-17.0 [facility] Comment on above: Order Comment: Speci men Type: BLOOD SPECIMENOrdering Facility: [facility] Address: [address] [place] [address] Performed By: #### 5 7021-8 ####[facility] LABCLIA [id number] [place] [address] Immature granulocytes (Bld) [#/Vol] 10*3/uL Normal <0.10 [facility] Comment on above: Order Comment: Speci men Type: BLOOD SPECIMENOrdering Facility: [facility] Address: [address] [place] [address] Performed By: #### 5 7021-8 ####[facility] LABCLIA [id number] [place] [address] Immature granulocytes/100 WBC (Bld) 0.2 % Normal [facility] Comment on above: Order Comment: Speci men Type: BLOOD SPECIMENOrdering Facility: [facility] Address: [address] [place] [address] Performed By: #### 5 7021-8 ####[facility] LABCLIA [id number] [place] [address] Lymphocytes (Bld) [#/Vol] 0.53 10*3/uL Low 1.00-4.00 [facility] Comment on above: Order Comment: Speci men Type: BLOOD SPECIMENOrdering Facility: [facility] Address: [address] [place] [address] Performed By: #### 5 7021-8 ####[facility] [facility] [id number] [place] [address] Lymphocytes/100 WBC (Bld) 11.5 % Normal [facility] Comment on above: Order Comment: Speci men Type: BLOOD SPECIMENOrdering Facility: [facility] Address: [address] [place] [address] Performed By: #### 5 7021-8 ####[facility] LABCLIA [id number] [place] [address] MCH (RBC) [Entitic mass] 28.4 pg Normal 26.0-34.0 [facility] Comment on above: Order Comment: Speci men Type: BLOOD SPECIMENOrdering Facility: [facility] Address: [address] [place] [address] Performed By: #### 5 7021-8 ####[facility] LABCLIA [id number] [place] [address] MCHC (RBC) [Mass/Vol] 30.9 g/dL Normal 30.5-36.0 [facility] Comment on above: Order Comment: Speci men Type: BLOOD SPECIMENOrdering Facility: [facility] Address: [address] [place] [address] Performed By: #### 5 7021-8 ####[facility] LABCLIA [id number] [place] [address] MCV (RBC) [Entitic vol] 92.0 fL Normal 80.0-100.0 C [facility] Comment on above: Order Comment: Speci men Type: BLOOD SPECIMENOrdering Facility: [facility] Address: [address] [place] [address] Performed By: #### 5 7021-8 ####[facility] LABCLIA [id number] [place] [address] Monocytes (Bld) [#/Vol] 0.69 10*3/uL Normal <0.87 [facility] Comment on above: Order Comment: Speci men Type: BLOOD SPECIMENOrdering Facility: [facility] Address: [address] [place] [address] Performed By: #### 5 7021-8 ####[facility] LABCLIA [id number] [place] [address] Monocytes/100 WBC (Bld) 14.9 % Normal C [facility] Comment on above: Order Comment: Speci men Type: BLOOD SPECIMENOrdering Facility: [facility] Address: [address] [place] [address] Performed By: #### 5 7021-8 ####[facility] LABCLIA [id number] [place] [address] Neutrophils (Bld) [#/Vol] 3.11 10*3/uL Normal 1.45-7.50 [facility] Comment on above: Order Comment: Speci men Type: BLOOD SPECIMENOrdering Facility: [facility] Address: [address] [place] [address] Performed By: #### 5 7021-8 ####[facility] LABCLIA [id number] [place] [address] Neutrophils/100 WBC (Bld) 67.4 % Normal [facility] Comment on above: Order Comment: Speci men Type: BLOOD SPECIMENOrdering Facility: [facility] Address: [address] [place] [address] Performed By: #### 5 7021-8 ####[facility] LABCLIA [id number] [place] [address] Nucleated RBC (Bld) [#/Vol] 10*3/uL Normal <0.01 [facility] Comment on above: Order Comment: Speci men Type: BLOOD SPECIMENOrdering Facility: [facility] Address: [address] [place] [address] Performed By: #### 5 7021-8 ####[facility] LABCLIA [id number] [place] [address] Nucleated RBC/100 WBC (Bld) [Ratio] 0.0 /100 WBC Normal [facility] Comment on above: Order Comment: Speci men Type: BLOOD SPECIMENOrdering Facility: [facility] Address: [address] [place] [address] Performed By: #### 5 7021-8 ####[facility] LABIA [id number] [place] [address] Platelet mean volume (Bld) [Entitic vol] 10.5 fL Normal 9.0-12.7 [facility] Comment on above: Order Comment: Speci men Type: BLOOD SPECIMENOrdering Facility: [facility] Address: [address] [place] [address] Performed By: #### 5 7021-8 ####[facility] LABCLIA [id number] [place] [address] Platelets (Bld) [#/Vol] 243 10*3/uL Normal 150-400 [facility] Comment on above: Order Comment: Speci men Type: BLOOD SPECIMENOrdering Facility: [facility] Address: [address] [place] [address] Performed By: #### 5 7021-8 ####[facility] LABCLIA [id number] [place] [address] RBC (Bld) [#/Vol] 2.64 10*6/uL Low 4.20-6.00 [facility] Comment on above: Order Comment: Speci men Type: BLOOD SPECIMENOrdering Facility: [facility] Address: [address] [place] [address] Performed By: #### 5 7021-8 ####[facility] LABIA [id number] [place] [address] WBC (Bld) [#/Vol] 4.62 10*3/uL Normal 3.70-11.00 [facility] Comment on above: Order Comment: Speci men Type: BLOOD SPECIMENOrdering Facility: [facility] Address: [address] [place] [address] Performed By: #### 5 7021-8 ####[facility] LABIA [id number] [place] [address] [facility] CBC W AUTO DIFF BLDon Basophils/100 WBC (Bld) 0.6 % [facility] BASOPHILS # BLD AUTO 0.03 [facility] DIFFERENTIAL METHOD BLD Auto [facility] EOSINOPHIL # BLD AUTO 0.25 [facility] LYMPHOCYTES # BLD AUTO 0.53 Low [facility] MONOCYTES # BLD AUTO 0.69 [facility] NEUTROPHILS # BLD AUTO 3.11 [facility] NRBC # BLD AUTO <0.01 [facility] NRBC/100 WBC BLD-RTO 0 /100 WBC [facility] PLATELET # BLD AUTO [address] [facility] PMV BLD AUTO 10.5 fL 9.0 - 12.7 fL [facility] WBC # BLD AUTO 4.62 [facility] Eosinophils/100 WBC (Bld) 5.4 % [facility] Erythrocyte distribution width (RBC) [Ratio] 15.5 % High 11.5 - 15.0 % [facility] Hematocrit (Bld) [Volume fraction] 24.3 % Low 39.0 - 51.0 % [facility] Hemoglobin (Bld) [Mass/Vol] 7.5 g/dL Low 13.0 - 17.0 g/dL [facility] IMM GRANULOCYTES # BLD AUTO <0.03 [facility] IMM GRANULOCYTES/LEUK NFR BLD AUTO 0.2 % [facility] Interpretation and review of laboratory results Abnormal [facility] Lymphocytes/100 WBC (Bld) 11.5 % [facility] MCH (RBC) [Entitic mass] 28.4 pg 26.0 - 34.0 pg [facility] MCHC (RBC) [Mass/Vol] 30.9 g/dL 30.5 - 36.0 g/dL [facility] MCV (RBC) [Entitic vol] 92 fL 80.0 - 100.0 fL [facility] Monocytes/100 WBC (Bld) 14.9 % [facility] Neutrophils/100 WBC (Bld) 67.4 % [facility] RBC (Bld) [#/Vol] 2.64 10*6/uL Low 4.20 - 6.00 m/uL [facility] Specimen Type: BLOOD SPECIMEN [facility] Address: [address] [place] [address] Original Ordering Provider: ROSELYN RAMIREZ [facility] CNOVSPon 12-09-2024 CNOVSP Normal [facility] CgA SerPl-mCncon 12-09-2024 Chromogranin A [Mass/Vol] 296.2 ng/mL High <187.0 [facility] Comment on above: Order Comment: Speci men Type: BLOOD SPECIMENOrdering Facility: [facility] Address: [address] [place] [address] Result Comment: The Chromogranin A test was performed using the [employer] CgA II KRYPTOR method. Results obtained with different assay methods or kits cannot be used interchangeably. Performed By: #### 9 811-1 ####[facility] LABCLIA [id number] [place] [address] [place] Comprehensive metabolic 2000 panelon 12-09-2024 Albumin [Mass/Vol] 4.0 g/dL Normal 3.9-4.9 [facility] Comment on above: Order Comment: Speci men Type: BLOOD SPECIMENOrdering Facility: [facility] Address: [address] [place] [address] Performed By: #### 2 4323-8 ####[facility] LABCLIA [id number] [place] [address] ALP [Catalytic activity/Vol] 126 U/L High 38-113 [facility] Comment on above: Order Comment: Speci men Type: BLOOD SPECIMENOrdering Facility: [facility] Address: [address] [place] [address] Performed By: #### 2 4323-8 ####[facility] LABCLIA [id number] [place] [address] ALT [Catalytic activity/Vol] 10 U/L Normal 10-54 [facility] Comment on above: Order Comment: Speci men Type: BLOOD SPECIMENOrdering Facility: [facility] Address: [address] [place] [address] Performed By: #### 2 4323-8 ####[facility] LABCLIA [id number] [place] [address] Anion gap [Moles/Vol] 11 mmol/L Normal 8-15 [facility] Comment on above: Order Comment: Speci men Type: BLOOD SPECIMENOrdering Facility: [facility] Address: [address] [place] [address] Performed By: #### 2 4323-8 ####[facility] LABCLIA [id number] [place] [address] AST [Catalytic activity/Vol] 19 U/L Normal 14-40 [facility] Comment on above: Order Comment: Speci men Type: BLOOD SPECIMENOrdering Facility: [facility] Address: [address] [place] [address] Performed By: #### 2 4323-8 ####[facility] LABCLIA [id number] [place] [address] Bilirubin [Mass/Vol] 0.3 mg/dL Normal 0.2-1.3 [facility] Comment on above: Order Comment: Speci men Type: BLOOD SPECIMENOrdering Facility: [facility] Address: [address] [place] [address] Performed By: #### 2 4323-8 ####[facility] LABCLIA [id number] [place] [address] Calcium [Mass/Vol] 8.5 mg/dL Normal 8.5-10.2 [facility] Comment on above: Order Comment: Speci men Type: BLOOD SPECIMENOrdering Facility: [facility] Address: [address] [place] [address] Performed By: #### 2 4323-8 ####[facility] LABCLIA [id number] [place] [address] Chloride [Moles/Vol] 111 mmol/L High 98-107 [facility] Comment on above: Order Comment: Speci men Type: BLOOD SPECIMENOrdering Facility: [facility] Address: [address] [place] [address] Performed By: #### 2 4323-8 ####[facility] LABCLIA [id number] [place] [address] CO2 [Moles/Vol] 18 mmol/L Low 22-30 [facility] Comment on above: Order Comment: Speci men Type: BLOOD SPECIMENOrdering Facility: [facility] Address: [address] [id number] Performed By: #### 2 4323-8 ####[facility] LABCLIA [id number] [place] [address] Creatinine [Mass/Vol] 1.53 mg/dL High 0.73-1.22 [facility] Comment on above: Order Comment: Demarcusi men Type: BLOOD SPECIMENOrdering Facility: [facility] Address: [address] [place] [address] Performed By: #### 2 4323-8 ####[facility] LABCLIA [id number] [place] [address] Creatinine and Glomerular filtration rate.predicted panel (S/P/Bld) 49 mL/min/1.73m??? Low >=60 [facility] Comment on above: Order Comment: Arben suarez Type: BLOOD SPECIMENOrdering Facility: [facility] Address: [address] [place] [address] Result Comment: Bailey mated Glomerular Filtration Rate [...] reflect actual GFR. Performed By: #### 2 4323-8 ####[facility] LABCLIA [id number] [place] [address] Glucose [Mass/Vol] 120 mg/dL High 74-99 [facility] Comment on above: Order Comment: Arben suarez Type: BLOOD SPECIMENOrdering Facility: [facility] Address: [address] [place], [place] [address] Result Comment: The [place] [employer] Association (ADA) provides guidance for cutoff [...] Standards of Medical Care in Diabetes 2016, [place] [employer]. Diabetes Care. 2016.39(Suppl 1). Performed By: #### 2 4323-8 ####[facility] LABCLIA [id number] [place] [address] Potassium [Moles/Vol] 4.6 mmol/L Normal 3.7-5.1 [facility] Comment on above: Order Comment: Speci men Type: BLOOD SPECIMENOrdering Facility: [facility] Address: [address] [place] [address] Performed By: #### 2 4323-8 ####[facility] LABCLIA [id number] [place] [address] Protein [Mass/Vol] 6.2 g/dL Low 6.3-8.0 [facility] Comment on above: Order Comment: Speci men Type: BLOOD SPECIMENOrdering Facility: [facility] Address: [address] [place] [address] Performed By: #### 2 4323-8 ####[facility] LABCLIA [id number] [place] [address] Sodium [Moles/Vol] 140 mmol/L Normal 136-144 [facility] Comment on above: Order Comment: Speci men Type: BLOOD SPECIMENOrdering Facility: [facility] Address: [address] [place] [address] Performed By: #### 2 4323-8 ####[facility] LABCLIA [id number] [place] [address] Urea nitrogen [Mass/Vol] 38 mg/dL High 9-24 [facility] Comment on above: Order Comment: Speci men Type: BLOOD SPECIMENOrdering Facility: [facility] Address: [address] [place] [address] Performed By: #### 2 4323-8 ####[facility] LABCLIA [id number] [place] [address] Ferritin SerPl-mCncon 2024 Ferritin [Mass/Vol] 19.2 ng/mL Low 30.3-565.7 [facility] Comment on above: Order Comment: Speci men Type: BLOOD SPECIMENOrdering Facility: [facility] Address: [address] [place] [address] Performed By: #### 5 0190-8, 9, 2275-11, 8 ####[facility] LABCLIA [id number] [place] [address] [place] Folate SerPl-mCncon 12-10-19 25 Folate [Mass/Vol] 11.5 ng/mL Normal >4.7 [facility] Comment on above: Order Comment: Speci men Type: BLOOD SPECIMENOrdering Facility: [facility] Address: [address] [place] [address] Performed By: #### 5 0190-8, 9, 2275-11, 8 ####[facility] LABCLIA [id number] [place] [address] [place] Gastrin SerPl-mCncon 025 Gastrin [Mass/Vol] 30.2 pg/mL Normal <115.0 [facility] Comment on above: Order Comment: Speci men Type: BLOOD SPECIMENOrdering Facility: [facility] Address: [address] [place] [address] Result Comment: The Gastrin test was performed using the Siemens Immulite chemiluminescent immunometric method. Results obtained with different assay methods or kits cannot be used interchangeably. Performed By: #### 2 333-3 ####[facility] LABCLIA [id number] [place] [address] [place] Iron and Iron binding capaci ty panelon 12-09-2024 Iron [Mass/Vol] 15 ug/dL Low 41-186 [facility] Comment on above: Order Comment: Speci men Type: BLOOD SPECIMENOrdering Facility: [facility] Address: [address] [place] [address] Performed By: #### 5 0190-8, 9, 2275-4, 8 ####[facility] LABCLIA [id number] [address] [place] Iron binding capacity [Mass/Vol] 481 ug/dL High 232-386 [facility] Comment on above: Order Comment: Speci men Type: BLOOD SPECIMENOrdering Facility: [facility] Address: [address] [place] [address] Performed By: #### 5 0190-8, 9, 4, 8 ####[facility] LABCLIA [id number] [address] [place] Iron/TIBC [Molar ratio] 3.1 % Low 15.0-57.0 [facility] Comment on above: Order Comment: Speci men Type: BLOOD SPECIMENOrdering Facility: [facility] Address: [address] [place] [address] Performed By: #### 5 0190-8, 9, 2275-11, 2284-03 ####[facility] LABCLIA [id number] [place] [address] [place] SEROTONIN BLDon 12-09-2024 SEROTONIN SERUM 1567 ng/mL High 50-220 [facility] Comment on above: Order Comment: Speci men Type: BLOOD SPECIMENOrdering Facility: [facility] Address: [address] [place] [address] Result Comment: TEST INFORMATION: Serotonin, SerumThis test was developed and its performance characteristicsdetermined by [employer]. It has not been cleared orapproved by the [place] Food and Drug Administration. This test wasperformed in a CLIA certified laboratory and is intended forclinical purposes.Performed By: [facility] [id number] [place] [id number] Director: Santosh Hollis MD, PhDCLIA Number: [id number] Performed By: #### S ERTON ####[facility] S[facility]THIA [id number] [place] [address] VASOACTIVE INTESTINAL POLYPE PTIDE (VIP), PLASMAon 12-09-2024 VASOACTIVE INTESTINAL POLYPEPTIDE 26.0 pg/mL Normal 0.0-89.1 [facility] Comment on above: Order Comment: Speci men Type: BLOOD SPECIMENOrdering Facility: [facility] Address: [address] [place] [address] Result Comment: This test was developed and its performance characteristicsdetermined by [employer]. It has not been cleared orapproved by the U.S. Food and Drug Administration. This test wasperformed in a CLIA-certified laboratory and is intended forclinical purposes.Performed By: [facility] [place] [address] [id number] Director: Santosh Hollis MD, PhDCLIA Number: [id number] Performed By: #### V IP ####[facility] [id number] [place] [address] Vit B12 SerPl-ncon 025 Cobalamin (Vitamin B12) [Mass/Vol] 1103 pg/mL Normal 232-1245 [facility] Comment on above: Order Comment: Speci men Type: BLOOD SPECIMENOrdering Facility: [facility] Address: [address] [place] [address] Performed By: #### 5 0190-8, 2132-9, 2276-4, 2284-8 ####[facility] LABCLIA [id number] [place] [address] [place] NM PET/CT NEUROENDOCRINE WBo n 12-08-2024 * * *Final Report* * * DATE OF EXAM: Dec 08 2024 9:17AM Tej 0094 - NM PET/CT NEUROENDOCRINE WB / [...] designed to produce diagnostic CT scan quality. Physiologic/non-patholog ic uptake in some body regions could confound [...] left apical pulmonary nodule. Krenning Score: 4 Senior Validation Engineer: MIKY Transcribe Date/Time: Dec 08 2024 1:14P Dictated by : JESSIE BALDWIN MD This examination was interpreted and the report reviewed and electronically signed by: JESSIE BALDWIN MD on Dec 08 2024 2:12PM EST [id number]^AGFA_IDC^SI^AC N [facility], Radiologi MD jonathan - 12/08/2024 * * *Final Report* * * DATE OF EXAM: Dec 08 2024 9:17AM [facility] 0094 - NM PET/CT NEUROENDOCRINE WB / [...] designed to produce diagnostic CT scan quality. Physiologic/non-patholog ic uptake in some body regions could confound [...] left apical pulmonary nodule. Krenning Score: 4 Senior Validation Engineer: PSCB Transcribe Date/Time: Dec 08 2024 1:14P Dictated by : JESSIE BALDWIN MD This examination was interpreted and the report reviewed and electronically signed by: JESSIE BALDWIN MD on Dec 08 2024 2:12PM EST [id number]^AGFA_IDC^SI^AC N [facility] NM PET/CT NEUROENDOCRINE WB Normal [facility] No Panel InformationOrdered By: Radiologist Radiology on 12-08-[address] [facility] Work Phone: No Panel Informationon 12-08 Radiology Study observation (narrative) [facility] PET+CT Brain for tau protein on 12-08-2024 IMPRESSION: Since 08/03/2024, PRIMARY DISEASE SITE: * Unchanged SSTR2 expressing distant ilium lesion ANILA DISEASE: * Unchanged SSTR2 expressing retroperitoneal and mesenteric lymphadenopathy. 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 * Unchanged SSTR2 expressing diffuse pancreatic uptake. ADDITIONAL FINDINGS: * Unchanged mild tracer uptake in left apical pulmonary nodule. Krenning Score: 4 Senior Validation Engineer: MIKY Transcribe Date/Time: Dec 08 2024 1:14P Dictated by : JESSIE BALDWIN MD This examination was interpreted and the report reviewed and electronically signed by: JESSIE BALDWIN MD on Dec 08 2024 2:12PM [facility] DIVISION OF RADIOLOGY * * *Final Report* * * DATE OF EXAM: Dec 08 2024 9:17AM [facility] 0094 - NM PET/CT NEUROENDOCRINE WB / [...] designed to produce diagnostic CT scan quality. Physiologic/non-patholog ic uptake in some body regions could confound [...] penis, 1.9 cm, SUV 30.3, image 291 DIVISION OF RADIOLOGY Provider, [facility] - 12/08/2024 * * *Final Report* * * DATE OF EXAM: Dec 08 2024 9:17AM [facility] 0094 - NM PET/CT NEUROENDOCRINE WB / [...] designed to produce diagnostic CT scan quality. Physiologic/non-patholog ic uptake in some body regions could confound [...] left apical pulmonary nodule. Krenning Score: 4 Senior Validation Engineer: MIKY Transcribe Date/Time: Dec 08 2024 1:14P Dictated by : JESSIE BALDWIN MD This examination was interpreted and the report reviewed and electronically signed by: JESSIE BALDWIN MD on Dec 08 2024 2:12PM EST [facility] CBC W Auto Differential pane l (Bld)on 11-17-2024 Basophils (Bld) [#/Vol] 0.05 10*3/uL [facility] Basophils/100 WBC (Bld) 1 % [facility] Differential cell count method Nom (Bld) Auto [facility] Eosinophils (Bld) [#/Vol] 0.14 10*3/uL [facility] Eosinophils/100 WBC (Bld) 2.8 % [facility] Erythrocyte distribution width (RBC) [Ratio] 14.4 % 11.5 - 15.0 % [facility] Hematocrit (Bld) [Volume fraction] 32.6 % Low 39.0 - 51.0 % [facility] Hemoglobin (Bld) [Mass/Vol] 10.2 g/dL Low 13.0 - 17.0 g/dL [facility] Immature granulocytes (Bld) [#/Vol] [facility] Immature granulocytes/100 WBC (Bld) 0.4 % [facility] Lymphocytes (Bld) [#/Vol] 0.34 10*3/uL Low [facility] Lymphocytes/100 WBC (Bld) 6.7 % [facility] MCH (RBC) [Entitic mass] 28.7 pg 26.0 - 34.0 pg [facility] MCHC (RBC) [Mass/Vol] 31.3 g/dL 30.5 - 36.0 g/dL [facility] MCV (RBC) [Entitic vol] 91.6 fL 80.0 - 100.0 fL [facility] Monocytes (Bld) [#/Vol] 0.67 10*3/uL [facility] Monocytes/100 WBC (Bld) 13.2 % [facility] Neutrophils (Bld) [#/Vol] 3.84 10*3/uL [facility] Neutrophils/100 WBC (Bld) 75.9 % [facility] Nucleated RBC (Bld) [#/Vol] [facility] Nucleated RBC/100 WBC (Bld) [Ratio] 0 % /100 WBC [facility] Platelet mean volume (Bld) [Entitic vol] 10.1 fL 9.0 - 12.7 fL [facility] Platelets (Bld) [#/Vol] 287 10*3/uL [facility] RBC (Bld) [#/Vol] 3.56 10*6/uL Low 4.20 - 6.00 m/uL [facility] WBC (Bld) [#/Vol] 5.06 10*3/uL [facility] Basophils (Bld) [#/Vol] 0.05 10*3/uL Normal <0.11 [facility] Comment on above: Order Comment: Speci men Type: BLOOD SPECIMENOrdering Facility: [facility] Address: [address] [place] [address] Performed By: #### 1 4196-0, 71842-2 ####[facility] LABCLIA [id number] [place] [address] Basophils/100 WBC (Bld) 1.0 % Normal C [facility] Comment on above: Order Comment: Speci men Type: BLOOD SPECIMENOrdering Facility: [facility] Address: [address] [place] [address] Performed By: #### 1 4196-0, ####[facility] LABCLIA [id number] [place] [address] Differential cell count method Nom (Bld) Auto Normal [facility] Comment on above: Order Comment: Speci men Type: BLOOD SPECIMENOrdering Facility: [facility] Address: [address] [place] [address] Performed By: #### 1 4196-0, ####[facility] LABCLIA [id number] [place] [address] Eosinophils (Bld) [#/Vol] 0.14 10*3/uL Normal <0.46 [facility] Comment on above: Order Comment: Speci men Type: BLOOD SPECIMENOrdering Facility: [facility] Address: [address] [place] [address] Performed By: #### 1 4196-0, ####[facility] LABCLIA [id number] [place] [address] Eosinophils/100 WBC (Bld) 2.8 % Normal [facility] Comment on above: Order Comment: Speci men Type: BLOOD SPECIMENOrdering Facility: [facility] Address: [address] [place] [address] Performed By: #### 1 4196-0, ####[facility] LABCLIA [id number] [place] [address] Erythrocyte distribution width (RBC) [Ratio] 14.4 % Normal 11.5-15.0 [facility] Comment on above: Order Comment: Speci men Type: BLOOD SPECIMENOrdering Facility: [facility] Address: [address] [place] [address] Performed By: #### 1 4196-0, ####[facility] LABCLIA [id number] [place] [address] Hematocrit (Bld) [Volume fraction] 32.6 % Low 39.0-51.0 [facility] Comment on above: Order Comment: Speci men Type: BLOOD SPECIMENOrdering Facility: [facility] Address: [address] [place] [address] Performed By: #### 1 4196-0, 16883-1 ####[facility] LABCLIA [id number] [place] [address] Hemoglobin (Bld) [Mass/Vol] 10.2 g/dL Low 13.0-17.0 [facility] Comment on above: Order Comment: Speci men Type: BLOOD SPECIMENOrdering Facility: [facility] Address: [address] [place] [address] Performed By: #### 1 4196-0, 48842-9 ####[facility] LABIA [id number] [place] [address] Immature granulocytes (Bld) [#/Vol] 10*3/uL Normal <0.10 [facility] Comment on above: Order Comment: Speci men Type: BLOOD SPECIMENOrdering Facility: [facility] Address: [address] [place] [address] Performed By: #### 1 4196-0, 41963-4 ####[facility] LABIA [id number] [place] [address] Immature granulocytes/100 WBC (Bld) 0.4 % Normal [facility] Comment on above: Order Comment: Speci men Type: BLOOD SPECIMENOrdering Facility: [facility] Address: [address] [place] [address] Performed By: #### 1 4196-0, 56128-0 ####[facility] LABIA [id number] [place] [address] Lymphocytes (Bld) [#/Vol] 0.34 10*3/uL Low 1.00-4.00 [facility] Comment on above: Order Comment: Speci men Type: BLOOD SPECIMENOrdering Facility: [facility] Address: [address] [place] [address] Performed By: #### 1 4196-0, 49464-4 ####[facility] LABCLIA [id number] [place] [address] Lymphocytes/100 WBC (Bld) 6.7 % Normal [facility] Comment on above: Order Comment: Speci men Type: BLOOD SPECIMENOrdering Facility: [facility] Address: [address] [place] [address] Performed By: #### 1 4196-0, 67112-8 ####[facility] LABCLIA [id number] [place] [address] MCH (RBC) [Entitic mass] 28.7 pg Normal 26.0-34.0 [facility] Comment on above: Order Comment: Speci men Type: BLOOD SPECIMENOrdering Facility: [facility] Address: [address] [place] [address] Performed By: #### 1 4196-0, 28409-2 ####[facility] LABCLIA [id number] [place] [address] MCHC (RBC) [Mass/Vol] 31.3 g/dL Normal 30.5-36.0 [facility] Comment on above: Order Comment: Speci men Type: BLOOD SPECIMENOrdering Facility: [facility] Address: [address] [place] [address] Performed By: #### 1 4196-0, 01327-4 ####[facility] LABCLIA [id number] [place] [address] MCV (RBC) [Entitic vol] 91.6 fL Normal 80.0-100.0 [facility] Comment on above: Order Comment: Speci men Type: BLOOD SPECIMENOrdering Facility: [facility] Address: [address] [place] [address] Performed By: #### 1 4196-0, 37495-9 ####[facility] LABCLIA [id number] [place] [address] Monocytes (Bld) [#/Vol] 0.67 10*3/uL Normal <0.87 [facility] Comment on above: Order Comment: Speci men Type: BLOOD SPECIMENOrdering Facility: [facility] Address: [address] [place] [address] Performed By: #### 1 4196-0, 66472-3 ####[facility] LABCLIA [id number] [place] [address] Monocytes/100 WBC (Bld) 13.2 % Normal [facility] Comment on above: Order Comment: Speci men Type: BLOOD SPECIMENOrdering Facility: [facility] Address: [address] [place] [address] Performed By: #### 1 4196-0, 42122-1 ####[facility] LABIA [id number] [place] [address] Neutrophils (Bld) [#/Vol] 3.84 10*3/uL Normal 1.45-7.50 [facility] Comment on above: Order Comment: Speci men Type: BLOOD SPECIMENOrdering Facility: [facility] Address: [address] [place] [address] Performed By: #### 1 4196-0, 79857-6 ####[facility] LABCLIA [id number] [place] [address] Neutrophils/100 WBC (Bld) 75.9 % Normal [facility] Comment on above: Order Comment: Speci men Type: BLOOD SPECIMENOrdering Facility: [facility] Address: [address] [place] [address] Performed By: #### 1 4196-0, 59602-3 ####[facility] LABIA [id number] [place] [address] Nucleated RBC (Bld) [#/Vol] 10*3/uL Normal <0.01 [facility] Comment on above: Order Comment: Speci men Type: BLOOD SPECIMENOrdering Facility: [facility] Address: [address] [place] [address] Performed By: #### 1 4196-0, 60346-1 ####[facility] LABIA [id number] [place] [address] Nucleated RBC/100 WBC (Bld) [Ratio] 0.0 /100 WBC Normal [facility] Comment on above: Order Comment: Speci men Type: BLOOD SPECIMENOrdering Facility: [facility] Address: [address] [place] [address] Performed By: #### 1 4196-0, 80751-5 ####[facility] LABCLIA [id number] [place] [address] Platelet mean volume (Bld) [Entitic vol] 10.1 fL Normal 9.0-12.7 [facility] Comment on above: Order Comment: Speci men Type: BLOOD SPECIMENOrdering Facility: [facility] Address: [address] [place] [address] Performed By: #### 1 4196-0, 41005-7 ####[facility] LABIA [id number] [place] [address] Platelets (Bld) [#/Vol] 287 10*3/uL Normal 150-400 [facility] Comment on above: Order Comment: Speci men Type: BLOOD SPECIMENOrdering Facility: [facility] Address: [address] [place] [address] Performed By: #### 1 4196-0, 26722-8 ####[facility] LABIA [id number] [place] [address] RBC (Bld) [#/Vol] 3.56 10*6/uL Low 4.20-6.00 [facility] Comment on above: Order Comment: Speci men Type: BLOOD SPECIMENOrdering Facility: [facility] Address: [address] [place] [address] Performed By: #### 1 4196-0, 03492-6 ####[facility] LABCLIA [id number] [place] [address] WBC (Bld) [#/Vol] 5.06 10*3/uL Normal 3.70-11.00 [facility] Comment on above: Order Comment: Speci men Type: BLOOD SPECIMENOrdering Facility: [facility] Address: [address] [place] [address] Performed By: #### 1 4196-0, 87696-6 ####[facility] LABCLIA [id number] [place] [address] CNOVSPon 11-17-2024 CNOVSP Normal [facility] CNPNon 11-17-2024 CNPN Normal [facility] Comprehensive metabolic 2000 panelOrdered By: Xin Camejo on 11-17-2024 Albumin [Mass/Vol] 4.3 g/dL 3.9 - 4.9 g/dL [facility] ALP [Catalytic activity/Vol] 176 U/L High 38 - 113 U/L [facility] ALT [Catalytic activity/Vol] 15 U/L 10 - 54 U/L [facility] Anion gap [Moles/Vol] 15 mmol/L 8 - 15 mmol/L [facility] AST [Catalytic activity/Vol] 26 U/L 14 - 40 U/L [facility] Bilirubin [Mass/Vol] 0.5 mg/dL 0.2 - 1 .3 mg/dL [facility] Calcium [Mass/Vol] 8.9 mg/dL 8.5 - 10. 2 mg/dL [facility] Chloride [Moles/Vol] 111 mmol/L High 98 - 10 7 mmol/L [facility] CO2 [Moles/Vol] 17 mmol/L Low 22 - 30 mmol/L [facility] Creatinine [Mass/Vol] 1.07 mg/dL 0.73 - 1.22 mg/dL [facility] GFR/1.73 sq M.predicted among non-blacks MDRD (S/P/Bld) [Vol rate/Area] 75 mL/min/{1.73_m2} - PINF [facility] Comment on above: Estimated Glomerular Filtration Rate (eGFR) is calculated using the 2020 CKD-EPI creatinine equation. This equation utilizes serum creatinine, sex, and age as parameters. The creatinine assay has traceable calibration to isotope dilution-mass spectrometry. Refer to KDIGO guidelines for clinical interpretation. In patients with unstable renal function, e.g. those with acute kidney injury, the eGFR may not accurately reflect actual GFR. Glucose [Mass/Vol] 98 mg/dL 74 - 99 mg/dL [facility] Comment on above: The [place] Diab[place] s Association (ADA) provides guidance for cutoff values [...] Standards of Medical Care in Diabetes 2016, [place] [employer] Association. Diabetes Care. 2016.39(Suppl 1). Interpretation and review of laboratory results Abnormal [facility] Potassium [Moles/Vol] 4.4 mmol/L 3.7 - 5.1 mmol/L [facility] Protein [Mass/Vol] 7.1 g/dL 6.3 - 8.0 g/dL [facility] Sodium [Moles/Vol] 143 mmol/L 136 - 144 mmol/L [facility] Urea nitrogen [Mass/Vol] 25 mg/dL High 9 - 24 mg/dL [facility] Comprehensive metabolic 2000 panelon 11-17-2024 Albumin [Mass/Vol] 4.3 g/dL Normal 3.9-4.9 [facility] Comment on above: Order Comment: Speci men Type: BLOOD SPECIMENOrdering Facility: [facility] Address: [facility] [place] [address] Performed By: #### 2 4323-8 ####[facility] LABCLIA [id number] [place] [address] ALP [Catalytic activity/Vol] 176 U/L High 38-113 [facility] Comment on above: Order Comment: Speci men Type: BLOOD SPECIMENOrdering Facility: [facility] Address: [address] [place] [address] Performed By: #### 2 4323-8 ####[facility] LABCLIA [id number] [place] [address] ALT [Catalytic activity/Vol] 15 U/L Normal 10-54 [facility] Comment on above: Order Comment: Speci men Type: BLOOD SPECIMENOrdering Facility: [facility] Address: [address] [place] [address] Performed By: #### 2 4323-8 ####[facility] LABCLIA [id number] [place] [address] Anion gap [Moles/Vol] 15 mmol/L Normal 8-15 [facility] Comment on above: Order Comment: Speci men Type: BLOOD SPECIMENOrdering Facility: [facility] Address: [address] [place] [address] Performed By: #### 2 4323-8 ####[facility] LABCLIA [id number] [place] [address] AST [Catalytic activity/Vol] 26 U/L Normal 14-40 [facility] Comment on above: Order Comment: Speci men Type: BLOOD SPECIMENOrdering Facility: [facility] Address: [address] [place] [address] Performed By: #### 2 4323-8 ####[facility] LABCLIA [id number] [place] [address] Bilirubin [Mass/Vol] 0.5 mg/dL Normal 0.2-1.3 [facility] Comment on above: Order Comment: Speci men Type: BLOOD SPECIMENOrdering Facility: [facility] Address: [address] [place] [address] Performed By: #### 2 4323-8 ####[facility] LABCLIA [id number] [place] [address] Calcium [Mass/Vol] 8.9 mg/dL Normal 8.5-10.2 [facility] Comment on above: Order Comment: Speci men Type: BLOOD SPECIMENOrdering Facility: [facility] Address: [address] [place] [address] Performed By: #### 2 4323-8 ####[facility] LABCLIA [id number] [place] [address] Chloride [Moles/Vol] 111 mmol/L High 98-107 [facility] Comment on above: Order Comment: Speci men Type: BLOOD SPECIMENOrdering Facility: [facility] Address: [address] [place] [address] Performed By: #### 2 4323-8 ####[facility] LABCLIA [id number] [place] [address] CO2 [Moles/Vol] 17 mmol/L Low 22-30 [facility] Comment on above: Order Comment: Speci men Type: BLOOD SPECIMENOrdering Facility: [facility] Address: [address] [place] [address] Performed By: #### 2 4323-8 ####[facility] LABCLIA [id number] [place] [address] Creatinine [Mass/Vol] 1.07 mg/dL Normal 0.73-1.22 [facility] Comment on above: Order Comment: Speci men Type: BLOOD SPECIMENOrdering Facility: [facility] Address: [address] [place] [address] Performed By: #### 2 4323-8 ####[facility] LABCLIA [id number] [place] [address] Creatinine and Glomerular filtration rate.predicted panel (S/P/Bld) 75 mL/min/1.73m??? Normal >=60 [facility] Comment on above: Order Comment: Speci men Type: BLOOD SPECIMENOrdering Facility: [facility] Address: [address] [place] [address] Result Comment: Bailey mated Glomerular Filtration Rate [...] reflect actual GFR. Performed By: #### 2 4323-8 ####[facility] LABCLIA [id number] [place] [address] Glucose [Mass/Vol] 98 mg/dL Normal 74-99 [facility] Comment on above: Order Comment: Speci men Type: BLOOD SPECIMENOrdering Facility: [facility] Address: [address] [place] [address] Result Comment: The [place] Diabetes Association (ADA) provides guidance for cutoff [...] Standards of Medical Care in Diabetes 2016, [place] Diabetes Association. Diabetes Care. 2016.39(Suppl 1). Performed By: #### 2 4323-8 ####[facility] LABIA [id number] [place] [address] Potassium [Moles/Vol] 4.4 mmol/L Normal 3.7-5.1 [facility] Comment on above: Order Comment: Arben suarez Type: BLOOD SPECIMENOrdering Facility: [facility] Address: [address] [place] [address] Performed By: #### 2 4323-8 ####[facility] LABCLIA [id number] [place] [address] Protein [Mass/Vol] 7.1 g/dL Normal 6.3-8.0 [facility] Comment on above: Order Comment: Speci men Type: BLOOD SPECIMENOrdering Facility: [facility] Address: [address] [place] [address] Performed By: #### 2 4323-8 ####[facility] LABCLIA [id number] [place] [address] Sodium [Moles/Vol] 143 mmol/L Normal 136-144 [facility] Comment on above: Order Comment: Speci men Type: BLOOD SPECIMENOrdering Facility: [facility] Address: [address] [place] [address] Performed By: #### 2 4323-8 ####[facility] LABCLIA [id number] [place] [address] Urea nitrogen [Mass/Vol] 25 mg/dL High 9-24 [facility] Comment on above: Order Comment: Speci men Type: BLOOD SPECIMENOrdering Facility: [facility] Address: [address] [place] [address] Performed By: #### 2 4323-8 ####[facility] LABCLIA [id number] [place] [address] FERRITINon 11-17-2024 Ferritin [Mass/Vol] 90.1 ng/mL 30.3 - 565.7 ng/mL [facility] FOLATE, SERUMon 11-17-2024 Folate [Mass/Vol] 7.2 ng/mL 4.7 - PINF ng/mL [facility] Ferritin SerPl-mCncon 2024 Ferritin [Mass/Vol] 90.1 ng/mL Normal 30.3-565.7 [facility] Comment on above: Order Comment: Speci men Type: BLOOD SPECIMENOrdering Facility: [facility] Address: [address] [place], [place] [address] Performed By: #### 2 276-4, 2132-9, 2284-8, 47685-6 ####[facility] LABCLIA [id number] [place] [id number] [place] Folate SerPl-mCncon 11-18-19 Folate [Mass/Vol] 7.2 ng/mL Normal >4.7 [facility] Comment on above: Order Comment: Speci men Type: BLOOD SPECIMENOrdering Facility: [facility] Address: [address] [place] [address] Performed By: #### 2 276-4, 9, 8, 65169-2 ####[facility] LABCLIA [id number] [place] [id number] [place] Iron and Iron binding capaci ty panelon 11-17-2024 Interpretation and review of laboratory results Abnormal [facility] Iron [Mass/Vol] 225 ug/dL High 41 - 186 ug/dL [facility] Iron binding capacity [Mass/Vol] 509 ug/dL High 232 - 386 ug/dL [facility] Iron/TIBC [Molar ratio] 44.2 % 15.0 - 57.0 % [facility] Iron [Mass/Vol] 225 ug/dL High 41-186 [facility] Comment on above: Order Comment: Speci men Type: BLOOD SPECIMENOrdering Facility: [facility] Address: [address] [place] [address] Performed By: #### 2 276-4, 9, 8, 34769-8 ####[facility] LABCLIA [id number] [place] [id number] [place] Iron binding capacity [Mass/Vol] 509 ug/dL High 232-386 [facility] Comment on above: Order Comment: Speci men Type: BLOOD SPECIMENOrdering Facility: [facility] Address: [address] [place] [address] Performed By: #### 2 276-4, 2131-9, 8, 27369-9 ####[facility] LABCLIA [id number] [address] [address] [place] Iron/TIBC [Molar ratio] 44.2 % Normal 15.0-57.0 C [facility] Comment on above: Order Comment: Speci men Type: BLOOD SPECIMENOrdering Facility: [facility] Address: [address] [place] [address] Performed By: #### 2 276-4, 2132-9, 2284-8, 19222-5 ####[facility] LABCLIA [id number] [address] [place] No Panel Informationon 11-17 Interpretation and review of laboratory results Normal [facility] Interpretation and review of laboratory results Abnormal [facility] RETICULOCYTE COUNTon 025 Reticulocytes (Bld) [#/Vol] 0.086 10*3/uL [facility] Retics #on 11-17-2024 Reticulocytes (Bld) [#/Vol] 0.33694 10*3/uL Normal 0.018-0.10 0 [facility] Comment on above: Order Comment: Speci men Type: BLOOD SPECIMENOrdering Facility: [facility] Address: [address] [place] [address] Performed By: #### 1 4196-0, 81793-9 ####[facility] LABCLIA [id number] [place] [address] Reticulocytes (Bld) [#/Vol]o n 11-17-2024 Reticulocytes/100 RBC (Bld) 2.4 % High 0.4 - 2.0 % [facility] Reticulocytes/100 RBC (Bld) 2.4 % High 0.4-2.0 [facility] Comment on above: Order Comment: Speci men Type: BLOOD SPECIMENOrdering Facility: [facility] Address: [address] [place] [address] Performed By: #### 1 4196-0, 70003-7 ####[facility] LABCLIA [id number] [place] [address] VITAMIN B12on 11-17-2024 Cobalamin (Vitamin B12) [Mass/Vol] 1039 pg/mL 232 - 1245 pg/mL [facility]12 [facility]- 025 Cobalamin (Vitamin B12) [Mass/Vol] 1039 pg/mL Normal 232-1245 [facility] Comment on above: Order Comment: Speci men Type: BLOOD SPECIMENOrdering Facility: [facility] Address: [address] [place] [address] Performed By: #### 2 276-4, 2132-9, 2284-8, 17968-1 ####[facility] LABCLIA [id number] [place] [address] [place] CBC W Auto Differential pane l (Bld)on 11-05-2024 Basophils (Bld) [#/Vol] 10*3/uL Normal <0.11 C [facility] Comment on above: Order Comment: Speci men Type: BLOOD SPECIMENOrdering Facility: [facility] Address: [address] [place] [address] Performed By: #### 5 7021-8 ####[facility] LABCLIA [id number] [place] [address] Basophils/100 WBC (Bld) 0.4 % Normal [facility] Comment on above: Order Comment: Speci men Type: BLOOD SPECIMENOrdering Facility: [facility] Address: [address] [place] [address] Performed By: #### 5 7021-8 ####[facility] LABCLIA [id number] [place] [address] Differential cell count method Nom (Bld) Auto Normal [facility] Comment on above: Order Comment: Speci men Type: BLOOD SPECIMENOrdering Facility: [facility] Address: [address] [place] [address] Performed By: #### 5 7021-8 ####[facility] LABCLIA [id number] [place] [address] Eosinophils (Bld) [#/Vol] 0.21 10*3/uL Normal <0.46 [facility] Comment on above: Order Comment: Speci men Type: BLOOD SPECIMENOrdering Facility: [facility] Address: [address] [place] [address] Performed By: #### 5 7021-8 ####[facility] LABCLIA [id number] [place] [address] Eosinophils/100 WBC (Bld) 4.5 % Normal [facility] Comment on above: Order Comment: Speci men Type: BLOOD SPECIMENOrdering Facility: [facility] Address: [address] [place] [address] Performed By: #### 5 7021-8 ####[facility] LABCLIA [id number] [place] [address] Erythrocyte distribution width (RBC) [Ratio] 15.4 % High 11.5-15.0 [facility] Comment on above: Order Comment: Speci men Type: BLOOD SPECIMENOrdering Facility: [facility] Address: [address] [place] [address] Performed By: #### 5 7021-8 ####[facility] LABCLIA [id number] [place] [address] Hematocrit (Bld) [Volume fraction] 26.0 % Low 39.0-51.0 [facility] Comment on above: Order Comment: Speci men Type: BLOOD SPECIMENOrdering Facility: [facility] Address: [address] [place] [address] Performed By: #### 5 7021-8 ####[facility] LABCLIA [id number] [place] [address] Hemoglobin (Bld) [Mass/Vol] 8.3 g/dL Low 13.0-17.0 [facility] Comment on above: Order Comment: Speci men Type: BLOOD SPECIMENOrdering Facility: [facility] Address: [address] [place] [address] Performed By: #### 5 7021-8 ####[facility] LABCLIA [id number] [place] [address] Immature granulocytes (Bld) [#/Vol] 0.04 10*3/uL Normal <0.10 [facility] Comment on above: Order Comment: Speci men Type: BLOOD SPECIMENOrdering Facility: [facility] Address: [address] [place] [address] Performed By: #### 5 7021-8 ####[facility] LABCLIA [id number] [place] [address] Immature granulocytes/100 WBC (Bld) 0.9 % Normal [facility] Comment on above: Order Comment: Speci men Type: BLOOD SPECIMENOrdering Facility: [facility] Address: [address] [place] [address] Performed By: #### 5 7021-8 ####[facility] LABIA [id number] [place] [address] Lymphocytes (Bld) [#/Vol] 0.56 10*3/uL Low 1.00-4.00 [facility] Comment on above: Order Comment: Speci men Type: BLOOD SPECIMENOrdering Facility: [facility] Address: [address] [place] [address] Performed By: #### 5 7021-8 ####[facility] LABCLIA [id number] [place] [address] Lymphocytes/100 WBC (Bld) 12.0 % Normal [facility] Comment on above: Order Comment: Speci men Type: BLOOD SPECIMENOrdering Facility: [facility] Address: [address] [place] [address] Performed By: #### 5 7021-8 ####[facility] LABIA [id number] [place] [address] MCH (RBC) [Entitic mass] 29.7 pg Normal 26.0-34.0 [facility] Comment on above: Order Comment: Speci men Type: BLOOD SPECIMENOrdering Facility: [facility] Address: [address] [place] [address] Performed By: #### 5 7021-8 ####[facility] LABCLIA [id number] [place] [address] MCHC (RBC) [Mass/Vol] 31.9 g/dL Normal 30.5-36.0 [facility] Comment on above: Order Comment: Speci men Type: BLOOD SPECIMENOrdering Facility: [facility] Address: [address] [place] [address] Performed By: #### 5 7021-8 ####[facility] LABCLIA [id number] [place] [address] MCV (RBC) [Entitic vol] 93.2 fL Normal 80.0-100.0 [facility] Comment on above: Order Comment: Speci men Type: BLOOD SPECIMENOrdering Facility: [facility] Address: [address] [place] [address] Performed By: #### 5 7021-8 ####[facility] LABCLIA [id number] [place] [address] Monocytes (Bld) [#/Vol] 0.90 10*3/uL High <0.87 [facility] Comment on above: Order Comment: Speci men Type: BLOOD SPECIMENOrdering Facility: [facility] Address: [address] [place] [address] Performed By: #### 5 7021-8 ####[facility] LABCLIA [id number] [place] [address] Monocytes/100 WBC (Bld) 19.3 % Normal C [facility] Comment on above: Order Comment: Speci men Type: BLOOD SPECIMENOrdering Facility: [facility] Address: [address] [place] [address] Performed By: #### 5 7021-8 ####[facility] LABCLIA [id number] [place] [address] Neutrophils (Bld) [#/Vol] 2.94 10*3/uL Normal 1.45-7.50 [facility] Comment on above: Order Comment: Speci men Type: BLOOD SPECIMENOrdering Facility: [facility] Address: [address] [place] [address] Performed By: #### 5 7021-8 ####[facility] LABCLIA [id number] [place] [address] Neutrophils/100 WBC (Bld) 62.9 % Normal [facility] Comment on above: Order Comment: Speci men Type: BLOOD SPECIMENOrdering Facility: [facility] Address: [address] [place] [address] Performed By: #### 5 7021-8 ####[facility] LABCLIA [id number] [place] [address] Nucleated RBC (Bld) [#/Vol] 10*3/uL Normal <0.01 [facility] Comment on above: Order Comment: Speci men Type: BLOOD SPECIMENOrdering Facility: [facility] Address: [address] [place] [address] Performed By: #### 5 7021-8 ####[facility] LABCLIA [id number] [place] [address] Nucleated RBC/100 WBC (Bld) [Ratio] 0.0 /100 WBC Normal [facility] Comment on above: Order Comment: Speci men Type: BLOOD SPECIMENOrdering Facility: [facility] Address: [address] [place] [address] Performed By: #### 5 7021-8 ####[facility] LABCLIA [id number] [place] [address] Platelet mean volume (Bld) [Entitic vol] 10.9 fL Normal 9.0-12.7 [facility] Comment on above: Order Comment: Speci men Type: BLOOD SPECIMENOrdering Facility: [facility] Address: [address] [place] [address] Performed By: #### 5 7021-8 ####[facility] LABCLIA [id number] [place] [address] Platelets (Bld) [#/Vol] 287 10*3/uL Normal 150-400 [facility] Comment on above: Order Comment: Speci men Type: BLOOD SPECIMENOrdering Facility: [facility] Address: [address] [place] [address] Performed By: #### 5 7021-8 ####[facility] LABCLIA [id number] [place] [address] RBC (Bld) [#/Vol] 2.79 10*6/uL Low 4.20-6.00 [facility] Comment on above: Order Comment: Speci men Type: BLOOD SPECIMENOrdering Facility: [facility] Address: [address] [place] [address] Performed By: #### 5 7021-8 ####[facility] LABIA [id number] [place] [address] WBC (Bld) [#/Vol] 4.67 10*3/uL Normal 3.70-11.00 [facility] Comment on above: Order Comment: Speci men Type: BLOOD SPECIMENOrdering Facility: [facility] Address: [address] [place] [address] Performed By: #### 5 7021-8 ####[facility] LABIA [id number] [place] [address] CgA SerPl-mCncon 11-05-2024 Chromogranin A [Mass/Vol] 424.1 ng/mL High <187.0 [facility] Comment on above: Order Comment: Speci men Type: BLOOD SPECIMENOrdering Facility: [facility] Address: [address] [place] [address] Result Comment: The Chromogranin A test was performed using the [employer] CgA II KRYPTOR method. Results obtained with different assay methods or kits cannot be used interchangeably. Performed By: #### 9 811-1 ####[facility] LABCLIA [id number] [place] [address] [place] Comprehensive metabolic 2000 panelon 11-05-2024 Albumin [Mass/Vol] 3.5 g/dL Low 3.9-4.9 [facility] Comment on above: Order Comment: Speci men Type: BLOOD SPECIMENOrdering Facility: [facility] Address: [address] [place] [address] Performed By: #### 2 4323-8 ####[facility] LABCLIA [id number] [place] [address] ALP [Catalytic activity/Vol] 97 U/L Normal 38-113 [facility] Comment on above: Order Comment: Speci men Type: BLOOD SPECIMENOrdering Facility: [facility] Address: [address] [place] [address] Performed By: #### 2 4323-8 ####[facility] LABCLIA [id number] [place] [address] ALT [Catalytic activity/Vol] 15 U/L Normal 10-54 [facility] Comment on above: Order Comment: Speci men Type: BLOOD SPECIMENOrdering Facility: [facility] Address: [address] [place] [address] Performed By: #### 2 4323-8 ####[facility] LABCLIA [id number] [place] [address] Anion gap [Moles/Vol] 8 mmol/L Normal 8-15 [facility] Comment on above: Order Comment: Speci men Type: BLOOD SPECIMENOrdering Facility: [facility] Address: [address] [place] [address] Performed By: #### 2 4323-8 ####[facility] LABCLIA [id number] [place] [address] AST [Catalytic activity/Vol] 19 U/L Normal 14-40 [facility] Comment on above: Order Comment: Speci men Type: BLOOD SPECIMENOrdering Facility: [facility] Address: [address] [place] [address] Performed By: #### 2 4323-8 ####[facility] LABCLIA [id number] [place] [address] Bilirubin [Mass/Vol] 0.3 mg/dL Normal 0.2-1.3 [facility] Comment on above: Order Comment: Speci men Type: BLOOD SPECIMENOrdering Facility: [facility] Address: [address] [place] [address] Performed By: #### 2 4323-8 ####[facility] LABCLIA [id number] [place] [address] Calcium [Mass/Vol] 7.9 mg/dL Low 8.5-10.2 [facility] Comment on above: Order Comment: Speci men Type: BLOOD SPECIMENOrdering Facility: [facility] Address: [address] [place] [address] Performed By: #### 2 4323-8 ####[facility] LABCLIA [id number] [place] [address] Chloride [Moles/Vol] 109 mmol/L High 98-107 [facility] Comment on above: Order Comment: Speci men Type: BLOOD SPECIMENOrdering Facility: [facility] Address: [address] [place] [address] Performed By: #### 2 4323-8 ####[facility] LABCLIA [id number] [place] [address] CO2 [Moles/Vol] 21 mmol/L Low 22-30 [facility] Comment on above: Order Comment: Speci men Type: BLOOD SPECIMENOrdering Facility: [facility] Address: [address] [place] [address] Performed By: #### 2 4323-8 ####[facility] LABCLIA [id number] [place] [address] Creatinine [Mass/Vol] 1.40 mg/dL High 0.73-1.22 [facility] Comment on above: Order Comment: Arben suarez Type: BLOOD SPECIMENOrdering Facility: [facility] Address: [address] [place], [place] [address] Performed By: #### 2 4323-8 ####[facility] LABCLIA [id number] [place] [address] Creatinine and Glomerular filtration rate.predicted panel (S/P/Bld) 54 mL/min/1.73m??? Low >=60 [facility] Comment on above: Order Comment: Arben suarez Type: BLOOD SPECIMENOrdering Facility: [facility] Address: [address] [place] [address] Result Comment: Bailey mated Glomerular Filtration Rate [...] reflect actual GFR. Performed By: #### 2 4323-8 ####[facility] LABCLIA [id number] [place] [address] Glucose [Mass/Vol] 96 mg/dL Normal 74-99 [facility] Comment on above: Order Comment: Arben suarez Type: BLOOD SPECIMENOrdering Facility: [facility] Address: [address] [place], [place] [address] Result Comment: The [place] [employer] Association (ADA) provides guidance for cutoff [...] Standards of Medical Care in Diabetes 2016, [place] [employer]. Diabetes Care. 2016.39(Suppl 1). Performed By: #### 2 4323-8 ####[facility] LABCLIA [id number] [place] [address] Potassium [Moles/Vol] 4.4 mmol/L Normal 3.7-5.1 [facility] Comment on above: Order Comment: Speci men Type: BLOOD SPECIMENOrdering Facility: [facility] Address: [address] [place] [address] Performed By: #### 2 4323-8 ####[facility] LABCLIA [id number] [place] [address] Protein [Mass/Vol] 5.4 g/dL Low 6.3-8.0 [facility] Comment on above: Order Comment: Speci men Type: BLOOD SPECIMENOrdering Facility: [facility] Address: [address] [place] [address] Performed By: #### 2 4323-8 ####[facility] LABCLIA [id number] [place] [address] Sodium [Moles/Vol] 138 mmol/L Normal 136-144 [facility] Comment on above: Order Comment: Speci men Type: BLOOD SPECIMENOrdering Facility: [facility] Address: [address] [place] [address] Performed By: #### 2 4323-8 ####[facility] LABCLIA [id number] [place] [address] Urea nitrogen [Mass/Vol] 10 mg/dL Normal 9-24 [facility] Comment on above: Order Comment: Speci men Type: BLOOD SPECIMENOrdering Facility: [facility] Address: [address] [place] [address] Performed By: #### 2 4323-8 ####[facility] LABCLIA [id number] [place] [address] [facility] SerPl-manishon 025 Gastrin [Mass/Vol] 67.2 pg/mL Normal <115.0 [facility] Comment on above: Order Comment: Speci men Type: BLOOD SPECIMENOrdering Facility: [facility] Address: [address] [place] [address] Result Comment: The Gastrin test was performed using the Siemens Immulite chemiluminescent immunometric method. Results obtained with different assay methods or kits cannot be used interchangeably. Performed By: #### 2 333-3 ####[facility] LABCLIA [id number] [address] SEROTONIN BLDon 11-05-2024 SEROTONIN SERUM 1720 ng/mL High 50-220 [facility] Comment on above: Order Comment: Speci men Type: BLOOD SPECIMENOrdering Facility: [facility] Address: [address] [place] [address] Result Comment: TEST INFORMATION: Serotonin, SerumThis test was developed and its performance characteristicsdetermined by [facility]. It has not been cleared orapproved by the [place] Food and Drug Administration. This test wasperformed in a CLIA certified laboratory and is intended forclinical purposes.Performed By: [facility] [place] [id number] Director: Santosh Hollis MD, PhDCLIA Number: [id number] Performed By: #### S ERTON ####[facility] S[facility] [id number] [place] [id number] VASOACTIVE INTESTINAL POLYPE PTIDE (VIP), PLASMAon 11-05-2024 VASOACTIVE INTESTINAL POLYPEPTIDE <20.0 Normal 0.0-89.1 [facility] Comment on above: Order Comment: Speci men Type: BLOOD SPECIMENOrdering Facility: [facility] Address: [address] [place] [address] Result Comment: This test was developed and its performance characteristicsdetermined by [facility]. It has not been cleared orapproved by the U.S. Food and Drug Administration. This test wasperformed in a CLIA-certified laboratory and is intended forclinical purposes.Performed By: [facility] [place] [id number] Director: Santosh Hollis MD, PhDCLIA Number: [id number] Performed By: #### V ####[facility] [id number] [place] [address] Basic metabolic 2000 panelon 11-03-2024 Anion gap [Moles/Vol] 8 mmol/L Normal 8-15 [facility] Comment on above: Order Comment: Speci men Type: BLOOD SPECIMEN [facility]: [facility] Address: [address] [place] [address] Performed By: #### 2 4320-2, #### [facility] CLIA [id number] [address] [place] [address] [place] Calcium [Mass/Vol] 7.7 mg/dL Low 8.5-10.2 [facility] Comment on above: Order Comment: Speci men Type: BLOOD SPECIMEN [facility]ing Facility: [facility] Address: [address] [place] [address] Performed By: #### 2 2, #### [facility] CLIA [id number] [address] [place] [address] [place] Chloride [Moles/Vol] 108 mmol/L High 98-107 [facility] Comment on above: Order Comment: Speci men Type: BLOOD SPECIMEN [facility]ing [facility]: [facility] Address: [address] [place] [address] Performed By: #### 2 4320-09, #### [facility] CLIA [id number] [address] [place] [address] [place] CO2 [Moles/Vol] 23 mmol/L Normal 22-30 [facility] Comment on above: Order Comment: Speci men Type: BLOOD SPECIMEN [facility]ing Facility: [facility] Address: [address] [place] [address] Performed By: #### 2 2, #### [facility] CLIA [id number] [address] [place] [address] [place] Creatinine [Mass/Vol] 1.23 mg/dL High 0.73-1.22 [facility] Comment on above: Order Comment: Arben suarez Type: BLOOD SPECIMEN Ordering Facility: [facility] Address: [address] [place] [address] Performed By: #### 2 4321-2, #### [facility] CLIA [id number] [address] [place] [address] [place] Creatinine and Glomerular filtration rate.predicted panel (S/P/Bld) 64 mL/min/1.73m??? Normal >=60 [facility] Comment on above: Order Comment: Arben suarez Type: BLOOD SPECIMEN [facility]ing Facility: [facility] Address: [address] [place] [address] Result Comment: Bailey mated Glomerular Filtration Rate [...] actual GFR. Performed By: #### 2 4321-2, #### [facility] CLIA [id number] [address] [place] [id number] [place] Glucose [Mass/Vol] 97 mg/dL Normal 74-99 [facility] Comment on above: Order Comment: Arben suarez Type: BLOOD SPECIMEN Ordering Facility: [facility] Address: [address] [place] [address] Result Comment: The [place] Diabetes Association (ADA) provides guidance for cutoff [...] Standards of Medical Care in Diabetes 2016, [place] [employer]. Diabetes Care. 2016.39(Suppl 1). Performed By: #### 2 4321-2, #### [facility] CLIA [id number] [address] [place] [address] [place] Potassium [Moles/Vol] 4.0 mmol/L Normal 3.7-5.1 [facility] Comment on above: Order Comment: Speci men Type: BLOOD SPECIMEN [facility]ing Facility: [facility] Address: [address] [place] [address] Performed By: #### 2 432-2, #### [facility] CLIA [id number] [address] [place] [address] [place] Sodium [Moles/Vol] 139 mmol/L Normal 136-144 [facility] Comment on above: Order Comment: Speci men Type: BLOOD SPECIMEN [facility]ing Facility: [facility] Address: [address] [place] [address] Performed By: #### 2 432-2, #### [facility] CLIA [id number] [address] [place] [address] [place] Urea nitrogen [Mass/Vol] 8 mg/dL Low 9-24 [facility] Comment on above: Order Comment: Speci men Type: BLOOD SPECIMEN [facility]ing Facility: [facility] Address: [address] [place] [address] Performed By: #### 2 432-2, #### [facility] CLIA [id number] [address] [place] [address] [place] CBC panel Auto (Bld)on 11-03 Erythrocyte distribution width (RBC) [Ratio] 15.7 % High 11.5-15.0 [facility] Comment on above: Order Comment: Speci men Type: BLOOD SPECIMEN Ordering Facility: [facility] Address: [address] [place] [address] Performed By: #### 5 8410-2 #### [facility] CLIA [id number] [address] [place] [address] [place] Hematocrit (Bld) [Volume fraction] 23.5 % Low 39.0-51.0 [facility] Comment on above: Order Comment: Speci men Type: BLOOD SPECIMEN Ordering Facility: [facility] Address: [address] [place] [address] Performed By: #### 5 8410-2 #### [facility] CLIA [id number] [address] [place] [address] [place] Hemoglobin (Bld) [Mass/Vol] 7.3 g/dL Low 13.0-17.0 [facility] Comment on above: Order Comment: Speci men Type: BLOOD SPECIMEN Ordering Facility: [facility] Address: [address] [place] [address] Performed By: #### 5 8410-2 #### [facility] CLIA [id number] [address] [place] [address] [place] MCH (RBC) [Entitic mass] 29.2 pg Normal 26.0-34.0 [facility] Comment on above: Order Comment: Speci men Type: BLOOD SPECIMEN Ordering Facility: [facility] Address: [address] [place] [address] Performed By: #### 5 8410-2 #### [facility] CLIA [id number] [address] [place] [address] [place] MCHC (RBC) [Mass/Vol] 31.1 g/dL Normal 30.5-36.0 [facility] Comment on above: Order Comment: Speci men Type: BLOOD SPECIMEN Ordering Facility: [facility] Address: [address] [place] [address] Performed By: #### 5 8410-2 #### [facility] CLIA [id number] [address] [place] [address] [place] MCV (RBC) [Entitic vol] 94.0 fL Normal 80.0-100.0 [facility] Comment on above: Order Comment: Speci men Type: BLOOD SPECIMEN Ordering Facility: [facility] Address: [address] [place] [address] Performed By: #### 5 8410-2 #### [facility] CLIA [id number] [place] [address] [place] Nucleated RBC (Bld) [#/Vol] 10*3/uL Normal <0.01 [facility] Comment on above: Order Comment: Speci men Type: BLOOD SPECIMEN Ordering Facility: [facility] Address: [address] [place] [address] Performed By: #### 5 8410-2 #### [facility] CLIA [id number] [address] [place] [address] [place] Platelet mean volume (Bld) [Entitic vol] 11.7 fL Normal 9.0-12.7 [facility] Comment on above: Order Comment: Speci men Type: BLOOD SPECIMEN Ordering Facility: [facility] Address: [address] [place] [address] Performed By: #### 5 8410-2 #### [facility] CLIA [id number] [address] [place] [address] [place] Platelets (Bld) [#/Vol] 216 10*3/uL Normal 150-400 [facility] Comment on above: Order Comment: Speci men Type: BLOOD SPECIMEN Ordering Facility: [facility] Address: [address] [place] [address] Performed By: #### 5 8410-2 #### [facility] CLIA [id number] [address] [place] [address] [place] RBC (Bld) [#/Vol] 2.50 10*6/uL Low 4.20-6.00 [facility] Comment on above: Order Comment: Speci men Type: BLOOD SPECIMEN Ordering Facility: [facility] Address: [address] [place] [address] Performed By: #### 5 8410-2 #### [facility] CLIA [id number] [address] [place] [address] [place] WBC (Bld) [#/Vol] 4.43 10*3/uL Normal 3.70-11.00 [facility] Comment on above: Order Comment: Speci men Type: BLOOD SPECIMEN Ordering Facility: [facility] Address: [address] [place] [address] Performed By: #### 5 8410-2 #### [facility] [id number] OF [facility] CNDSon 11-03-2024 CNDS HNO ID: [id number] Author: BRENDA PAUL APRN.[facility] Service: General Internal Medicine Author Type: Nurse Practitioner Type: Discharge Summary Filed: 11/03/2024 15:19 Note Text: -------- Attestation signed by Lew Arita MD at 11/03/2024 10:39 PM Agree -------- DISCHARGE SUMMARY PATIENT NAME: Aisha Julien ADMISSION DATE: 10/31/2024 DISCHARGE DATE: 11/03/2024 Attending Physician: Lew Arita MD Code Status: Full Code Highest Readmission Risk Score: 21 The 30 day readmissions risk score is derived from an internally validated risk model which evaluates patient level characteristics, utilization history, medication orders and lab results up until the day of discharge. Patients with a score of 39 or above are considered highest risk for readmission. Specific patient level drivers will be listed at the bottom of the summary. Transitions of Care Critical Issues AYALA MEDICATION CHANGES Finasteride 5mg once daily FOLLOW UP APPOINTMENTS: PCP 1 week, HEM/ONC 1 week, [facility] 1-2 weeks LABS AND PROCEDURES PENDING AT DISCHARGE: NONE Reason for Hospitalization/Principa l Diagnosis: GI BLEED Hospital Course: Mr. Alexander is a 69 yo male who presents today with bloody diarrhea x 1 wk along with a feeling of weakness and dizzyness. 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 Other PMH includes HTN, HLD, BPH, CKD stage 3a. He initially went to [facility] ED on 10/28 where Hb as 8.2. CT of abdomen did not show any new/acute findings. He was discharged in stable condition and told to return to ED if sxs do not resolve. Hospital course Vitals are stable Labs show a Hb of 5.4 with no leukocytosis Electrolytes are stable Creat 1.30 which is slightly elevated from baseline ECG NSR, QGC 415. 11/02-- -EGD/colonoscopy completed. No acute findings except for hemorrhoids. No GI recommendations. Follow up with [facility] for hemorrhoid removal Hb 7.4 No new recommendations from heme/onc. 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 Roselyn Leonard. Most recent PET scan was Jul 2024. 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 Appearance: He is not ill-appearing. HENT: Head: Normocephalic and atraumatic. Cardiovascular: Rate and Rhythm: Normal rate and regular rhythm. Pulmonary: Effort: Pulmonary effort is normal. Abdominal: General: Abdomen is flat. Bowel sounds are normal. Palpations: Abdomen is soft. Musculoskeletal: General: Normal range of motion. Skin: General: Skin is warm and dry. Neurological: Mental Status: He is alert and oriented to person, place, and time. BP 111/52 Pulse 66 Temp 36.8 ?C (98.2 ?F) (Oral) Resp 16 Ht 176.5 cm (5' 9.5 ) Wt 78.3 kg (172 lb 9.9 oz) SpO2 95% BMI 25.13 kg/m? Body mass index is 25.13 kg/m?. Diet: Resume pre-hospital diet Activity: Resume pre-hospital activity Additional Information: Follow Up Appointments: Future Appointments Date Time Provider Department Center 11/05/2024 8:00 AM [facility] 8[facility]15 [facility] 12/02/2024 3:15 PM [facility] 12/09/2024 9:00 AM Roselyn Leonard MD [facility] ALLERGIES No Known Allergies Discharge Medications: Current Discharge Medication List CONTINUE these medications which have CHANGED finasteride (PROSCAR) 5 mg Take 5 mg by mouth once daily. Patient should start on November 04, 2024. CONTINUE these medications which have NOT CHANGED octreotide LAR (SANDOSTATIN LAR (more content not included)... [id number] Author: LEW ARITA MD Service: General Internal Medicine Author Type: Physician Type: Discharge Summary Filed: 11/03/2024 22:38 Note Text: DISCHARGE SUMMARY PATIENT NAME: Aisha Julien ADMISSION DATE: 10/31/2024 DISCHARGE DATE: 11/03/2024 ATTENDING PHYSICIAN: Lew Arita MD Code Status: Full Code Highest Readmission Risk Score: 21 The 30 day readmissions risk score is derived from an internally validated risk model which evaluates patient level characteristics, utilization history, medication orders and lab results up until the day of discharge. Patients with a score of 39 or above are considered highest risk for readmission. Specific patient level drivers will be listed at the bottom of the summary. 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 * OPERATIONS DURING HOSPITALIZATION: None PROCEDURES DURING HOSPITALIZATION: Colonoscopy and EGD HOSPITAL COURSE: Mr. Alexander is a 69 yo male who presents today with bloody diarrhea x 1 wk along with a feeling of weakness and dizzyness. 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 Other PMH includes HTN, HLD, BPH, CKD stage 3a. He initially went to [facility] ED on 10/28 where Hb as 8.2. CT of abdomen did not show any new/acute findings. He was discharged in stable condition and told to return to ED if sxs do not resolve. Hospital course Vitals are stable Labs show a Hb of 5.4 with no leukocytosis Electrolytes are stable Creat 1.30 which is slightly elevated from baseline ECG NSR, QGC 415. 11/02-- -EGD/colonoscopy completed. No acute findings except for hemorrhoids. Awaiting GI recommendations. Hb 7.4 No new recommendations from heme/onc. Awaiting further recs. 11/03 -Blood count stable, GI and oncology cleared patient for discharge LABS AND PROCEDURES PENDING AT DISCHARGE: No pending results. PATIENT CONDITION AT DISCHARGE: Good DISCHARGE DISPOSITION: Home with Relative Discharge Physical Exam: VITAL SIGNS: BP 111/52 Pulse 66 Temp 36.8 ?C (98.2 ?F) (Oral) Resp 16 Ht 176.5 cm (5' 9.5 ) Wt 78.3 kg (172 lb 9.9 oz) SpO2 95% BMI 25.13 kg/m? GENERAL: Alert, no distress, cooperative SKIN: Skin color, texture, turgor normal. No rashes or lesions. HEAD/SINUSES: No significant findings EYES: PERRLA, EOMI NOSE: Nares normal. Septum midline. OROPHARYNX: Lips, mucosa, and tongue normal. Teeth and gums normal. Oropharynx normal. LUNGS: Lungs clear to auscultation, Good diaphragmatic excursion CARDIAC: Normal S1 and S2; no rubs, murmurs, or gallops ABDOMEN: Abdomen soft, non-tender, BS normal, No masses or organomegaly EXTREMITIES: Extremities normal, no deformities, edema, clubbing or skin discoloration. Good capillary refill., No ulcers NEURO: Grossly normal cognition, motor function, and cranial nerves III-XII WOUND/SURGICAL SITE CARE: None DIET: Resume pre-hospital diet ACTIVITY: Resume pre-hospital activity ALLERGIES No Known Allergies DISCHARGE MEDICATION: Medication List ASK your doctor about these medications finasteride 5 mg tablet Commonly known as: PROSCAR losartan 100 mg tablet Commonly known as: COZAAR MULTIVITAMIN ORAL octreotide LAR 20 mg Depot INJ Commonly known as: SandoSTATIN LAR Depot Take to provider office for and inject 20mg IM every 3 weeks as directed FUTURE APPOINTMENTS: The patient's risk for 30-day readmission is determined using the following contributing factors: Predictive Model Details 19% (Moderate) Factor Value Calculated 11/03/2024 05:23 13% Hospital Unit [facility] READMISSION RISK Model -8% ED visits (365d) 0 -7% Admissions (60d) 1 -7% Admissions (90d) 1 7% Malnutrition Yes -6% Observations (365d) 0 -5% Length of Stay (d) 3 5% Albumin (Avg) 3.2 -5% ED Encounter No 4% Appointments (365d) 11 Plan of care discussed with Patient, RN, and CUT OUT OPERATOR I have performed the [id number] and relevant services for a total of >30 minutes. SIGNATURE: Lew Arita MD DATE: November 03, 2024 TIME: 1:24 PM This note was partially created using voice recognition software and is inherently subject to errors including those of syntax and sound-alike substitutions which may escape proofreading. In suc (more content not included)... [facility] 11-03-2024 CNPN Normal [facility] Magnesium SerPl-mCncon 11-03 Magnesium [Mass/Vol] 1.8 mg/dL Normal 1.7-2.3 [facility] Comment on above: Order Comment: Speci men Type: BLOOD SPECIMEN Ordering Facility: [facility] Address: [address] [place] [address] Performed By: #### 2 4321-2, 24258-0 #### [facility] CLIA [id number] [address] [place] [address] [place] Basic metabolic 2000 panelon 11-02-2024 Anion gap [Moles/Vol] 10 mmol/L Normal 8-15 [facility] Comment on above: Order Comment: Speci men Type: BLOOD SPECIMEN Ordering Facility: [facility] Address: [address] [place] [address] Performed By: #### 2 4321-2 #### [facility] CLIA [id number] [address] [place] [address] [place] Calcium [Mass/Vol] 7.7 mg/dL Low 8.5-10.2 [facility] Comment on above: Order Comment: Speci men Type: BLOOD SPECIMEN Ordering Facility: [facility] Address: [address] [place] [address] Performed By: #### 2 4321-2 #### [facility] CLIA [id number] [address] [place] [address] [place] Chloride [Moles/Vol] 108 mmol/L High 98-107 [facility] Comment on above: Order Comment: Speci men Type: BLOOD SPECIMEN Ordering Facility: [facility] Address: [address] [place] [address] Performed By: #### 2 4321-2 #### [facility] CLIA [id number] [address] [place] [address] [place] CO2 [Moles/Vol] 23 mmol/L Normal 22-30 [facility] Comment on above: Order Comment: Speci men Type: BLOOD SPECIMEN Ordering Facility: [facility] Address: [address] [place] [address] Performed By: #### 2 4321-2 #### [facility] CLIA [id number] [place] [address] [place] Creatinine [Mass/Vol] 1.24 mg/dL High 0.73-1.22 [facility] Comment on above: Order Comment: Arben suarez Type: BLOOD SPECIMEN Ordering Facility: [facility] Address: [address] [place] [address] Performed By: #### 2 4321-2 #### [facility] CLIA [id number] [address] [place] [address] [place] Creatinine and Glomerular filtration rate.predicted panel (S/P/Bld) 63 mL/min/1.73m??? Normal >=60 [facility] Comment on above: Order Comment: Arben suarez Type: BLOOD SPECIMEN Ordering Facility: [facility] Address: [address] [place] [address] Result Comment: Bailey mated Glomerular Filtration Rate [...] actual GFR. Performed By: #### 2 4321-2 #### [facility] CLIA [id number] [place] [address] [place] Glucose [Mass/Vol] 92 mg/dL Normal 74-99 [facility] Comment on above: Order Comment: Arben suarez Type: BLOOD SPECIMEN Ordering Facility: [facility] Address: [address] [place] [address] Result Comment: The [place] [employer] Association (ADA) provides guidance for cutoff [...] Standards of Medical Care in Diabetes 2016, [place] [employer]. Diabetes Care. 2016.39(Suppl 1). Performed By: #### 2 4321-2 #### [facility] CLIA [id number] [address] [place] [address] [place] Potassium [Moles/Vol] 3.9 mmol/L Normal 3.7-5.1 [facility] Comment on above: Order Comment: Speci men Type: BLOOD SPECIMEN Ordering Facility: [facility] Address: [address] [place] [address] Performed By: #### 2 4321-2 #### [facility] CLIA [id number] [address] [place] [address] [place] Sodium [Moles/Vol] 141 mmol/L Normal 136-144 [facility] Comment on above: Order Comment: Demarcusi daniela Type: BLOOD SPECIMEN Ordering Facility: [facility] Address: [address] [place] [address] Performed By: #### 2 4321-2 #### [facility] CLIA [id number] [address] [place] [address] [place] Urea nitrogen [Mass/Vol] 11 mg/dL Normal 9-24 [facility] Comment on above: Order Comment: Demarcusi daniela Type: BLOOD SPECIMEN Ordering Facility: [facility] Address: [address] [place] [address] Performed By: #### 2 4321-2 #### [facility] CLIA [id number] [address] [place] [address] [place] CBC panel Auto (Bld)on 11-02 Erythrocyte distribution width (RBC) [Ratio] 16.0 % High 11.5-15.0 [facility] Comment on above: Order Comment: Demarcusi men Type: BLOOD SPECIMENOrdering Facility: [facility] Address: [address] [place] [address] Performed By: #### 5 8410-2 ####[facility] [id number] [address] [place] Hematocrit (Bld) [Volume fraction] 24.0 % Low 39.0-51.0 [facility] Comment on above: Order Comment: Speci men Type: BLOOD SPECIMENOrdering Facility: [facility] Address: [address] [place] [address] Performed By: #### 5 8410-2 ####[facility] [id number] [place] [address] [place] Hemoglobin (Bld) [Mass/Vol] 7.4 g/dL Low 13.0-17.0 [facility] Comment on above: Order Comment: Speci men Type: BLOOD SPECIMENOrdering Facility: [facility] Address: [address] [place] [address] Performed By: #### 5 8410-2 ####[facility] [id number] [address] [place] MCH (RBC) [Entitic mass] 29.1 pg Normal 26.0-34.0 [facility] Comment on above: Order Comment: Speci men Type: BLOOD SPECIMENOrdering Facility: [facility] Address: [address] [place] [address] Performed By: #### 5 8410-2 ####[facility] [id number] [address] [place] MCHC (RBC) [Mass/Vol] 30.8 g/dL Normal 30.5-36.0 [facility] Comment on above: Order Comment: Speci men Type: BLOOD SPECIMENOrdering Facility: [facility] Address: [address] [place] [address] Performed By: #### 5 8410-2 ####[facility] [id number] [address] [place] [facility] MCV (RBC) [Entitic vol] 94.5 fL Normal 80.0-100.0 [facility] Comment on above: Order Comment: Speci men Type: BLOOD SPECIMENOrdering Facility: [facility] Address: [address] [place] [address] Performed By: #### 5 8410-2 ####[facility] [id number] [place] [id number] [place] Nucleated RBC (Bld) [#/Vol] 10*3/uL Normal <0.01 [facility] Comment on above: Order Comment: Speci men Type: BLOOD SPECIMENOrdering Facility: [facility] Address: [address] [place] [address] Performed By: #### 5 8410-2 ####[facility] [id number] [place] [id number] [place] Platelet mean volume (Bld) [Entitic vol] 11.4 fL Normal 9.0-12.7 [facility] Comment on above: Order Comment: Speci men Type: BLOOD SPECIMENOrdering Facility: [facility] Address: [address] [place] [address] Performed By: #### 5 8410-2 ####[facility] [id number] [place] [address] [place] Platelets (Bld) [#/Vol] 192 10*3/uL Normal 150-400 [facility] Comment on above: Order Comment: Speci men Type: BLOOD SPECIMENOrdering Facility: [facility] Address: [address] [place] [address] Performed By: #### 5 8410-2 ####[facility]ORY[facility] [id number] [place] [id number] [place] RBC (Bld) [#/Vol] 2.54 10*6/uL Low 4.20-6.00 [facility] Comment on above: Order Comment: Speci men Type: BLOOD SPECIMENOrdering Facility: [facility] Address: [address] [place] [address] Performed By: #### 5 8410-2 ####[facility] [id number] [place] [id number] [place] WBC (Bld) [#/Vol] 4.77 10*3/uL Normal 3.70-11.00 [facility] Comment on above: Order Comment: Speci men Type: BLOOD SPECIMENOrdering Facility: [facility] Address: [address] [place] [address] Performed By: #### 5 8410-2 ####[facility] [id number] [place] [address] [place] Magnesium SerPl-mCncon 11-02 Magnesium [Mass/Vol] 1.9 mg/dL Normal 1.7-2.3 [facility] Comment on above: Order Comment: Speci men Type: BLOOD SPECIMEN Ordering Facility: [facility] Address: [address] [place] [address] Performed By: #### 5 8410-2 #### [facility] CLIA [id number] [place] [address] [place] ANES POSTPROC EVALon 025 ANES POSTPROC EVAL HNO ID: [id number] Author: KIP HILARIO MD Service: Anesthesiology Author Type: Anesthesiologist Type: Anesthesia Postprocedure Evaluation Filed: 11/02/2024 14:28 Note Text: POST ANESTHESIA EVALUATION NOTE : 1955 Procedure Summary Date: 11/01/24 Room / Location: [facility] Endoscopy - ENDO Anesthesia Start: 1433 Anesthesia Stop: 1517 Procedures: ENTEROSCOPY COLONOSCOPY DIAGNOSTIC Diagnosis: (Melena) (Unexplained GI bleeding Hematochezia) Scheduled Providers: Pratik Winters MD Responsible Provider: Kip Hilario MD Anesthesia Type: MAC ASA Status: 3 Anesthesia Type: MAC Last Vitals Vitals Value Taken Time BP 133/57 11/02/24 1117 Temp 36.5 ?C (97.7 ?F) 11/02/24 1117 HR SpO2 70 11/01/24 1541 Resp 18 11/02/24 1117 SpO2 97 % 11/02/24 1117 Vitals shown include unfiled device data. Post Anesthesia Patient Status Patient Evaluation: PACU. PACU/ICU Patient Condition: stable. Anticipated Disposition: inpatient floor planned admission. Neurological Status: aware and responsive. Pulmonary Status: breathing comfortably on room air Airway Control: returned to baseline unsupported. Cardiovascular Status: stable. Pain Management: clinically adequate - multimodal analgesia pain management approach Postoperative Hydration: acceptable. Intraoperative Events: no significant anesthesia events Recommendation: continue current plan of care and further care per PACU/ICU/floor team. Anesthesia Observations No Documentation SIGNATURE: Kip Hilario MD PATIENT NAME: Aisha Julien DATE: November 01, 2024 TIME: 3:27 PM CSN: [id number] Normal [facility] ANES PRE-OPon 11-01-2024 ANES PRE-OP HNO ID: [id number] Author: RADHA BOND MD Service: Anesthesiology Author Type: Anesthesiologist Type: Anesthesia Preprocedure Evaluation Filed: 11/01/2024 13:28 Note Text: ANESTHESIOLOGY DAY OF SURGERY NOTE : 1955 Procedure Information Date/Time: 11/01/24 1300 Scheduled providers: Pratik Winters MD; Radha Bond MD; Nasreen Manzano APRN.SENIOR TECHNICAL RECRUITER Procedures: ENTEROSCOPY COLONOSCOPY DIAGNOSTIC Location: [facility] Endoscopy - ENDO Estimated body mass index is 25.13 kg/m? as calculated from the following: Height as of this encounter: 176.5 cm (5' 9.5 ). Weight as of this encounter: 78.3 kg (172 lb 9.9 oz). 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 Tracheostomy tube not present Mallampati: II. TM distance: >3 FB. Neck ROM: full ROM without neurological symptoms. Mouth opening: adequate. Short neck: no. Thick neck: no DENTAL Dental findings: teeth intact. II - ANESTHESIA PLAN ASA Score: 3 Anesthetic Plan: MAC The patient is not a current smoker. NPO Status: adequate Beta Keshawn Monitoring Plan Monitoring plan: standard ASA. Post Procedure Analgesic Plan Informed Consent Anesthetic risks, benefits, alternatives, personnel and consent discussed: yes. Patient / Responsible Libertarian agrees to proceed: yes Patient / Surrogate agrees to blood products: blood products not planned Significant changes in the patient condition since the History and Physical, not otherwise documented in primary service progress note: no. Potential Anesthesia issues that may suggest increased risk of complications or contraindication to planned procedure: none. Vitals Value Taken Time BP 139/68 11/01/24 1322 Pulse 63 11/01/24 1322 Resp 16 11/01/24 1322 Temp 36.2 ?C (97.2 ?F) 11/01/24 1322 SpO2 100 % 11/01/24 1322 Facility-Administered Medications as of 11/01/2024 Medication Dose Route Frequency [COMPLETED] potassium chloride ER 40 mEq tab(s) (KLOR-CON) 40 mEq ORAL ONCE [COMPLETED] NaCl 0.9% 1,000 mL iv bolus 1,000 mL INTRAVENOUS ONCE [COMPLETED] pantoprazole 40 mg injection (PROTONIX) 40 mg INTRAVENOUS ONCE finasteride 5 mg tab(s) (PROSCAR) 5 mg ORAL DAILY pantoprazole 40 mg injection (PROTONIX) 40 mg INTRAVENOUS BID AC (0600/1600) NaCl 0.9% iv flush bag 20 mL INTRAVENOUS PRN ondansetron 4 mg tab(s) (ZOFRAN) 4 mg ORAL q 6 H PRN Or ondansetron (PF) 4 mg injection (ZOFRAN) 4 mg INTRAVENOUS q 6 H PRN acetaminophen 650 mg tab(s) (TYLENOL) 650 mg ORAL q 6 H PRN [COMPLETED] peg 3350-Electrolytes 4,000 mL oral liquid (GOLYTELY) 4,000 mL ORAL ONCE ferric gluconate 125 mg in NaCl 0.9% 100 mL (FERRLECIT) 125 mg INTRAVENOUS DAILY AT 6 PM Outpatient Medications as of 11/01/2024 Medication Sig octreotide LAR (SANDOSTATIN LAR DEPOT) 20 mg Depot INJ Take to provider office for and inject 20mg IM every 3 weeks as directed losartan (COZAAR) 100 mg tablet Take 100 mg by mouth once daily. finasteride (PROSCAR) 5 mg tablet Take 5 mg by mouth every other day. MULTIVITAMIN ORAL Take by mouth. I have interviewed and examined the patient. I have reviewed the medical record and/or the pre-anesthesia evaluation, pertinent labs, and test results. This contains updated information obtained within 48 hours of Surgery/Procedure. SIGNATURE: Radha Bond MD PATIENT NAME: Aisha Julien DATE: November 01, 2024 TIME: 1:27 PM CSN: [id number] Normal [facility] Basic metabolic 2000 panelon 11-01-2024 Anion gap [Moles/Vol] 10 mmol/L Normal 8-15 [facility] Comment on above: Order Comment: Speci men Type: BLOOD SPECIMENOrdering Facility: [facility] Address: [address] [place] [address] Performed By: #### 2 432-2, ####[facility] LABORATORYCLIA [id number] [place] [id number] [place] Calcium [Mass/Vol] 7.6 mg/dL Low 8.5-10.2 [facility] Comment on above: Order Comment: Speci men Type: BLOOD SPECIMENOrdering Facility: [facility] Address: [address] [place] [address] Performed By: #### 2 432-2, ####[facility] LABORATORYCLIA [id number] [place] [id number] [place] Chloride [Moles/Vol] 109 mmol/L High 98-107 [facility] Comment on above: Order Comment: Speci men Type: BLOOD SPECIMENOrdering Facility: [facility] Address: [address] [place] [address] Performed By: #### 2 4321-2, ####[facility] LABORATORYCLIA [id number] [place] [id number] [place] CO2 [Moles/Vol] 23 mmol/L Normal 22-30 [facility] Comment on above: Order Comment: Speci men Type: BLOOD SPECIMENOrdering Facility: [facility] Address: [address] [place] [address] Performed By: #### 2 4321-2, ####[facility] LABORATORYCLIA [id number] [place] [id number] [place] Creatinine [Mass/Vol] 1.11 mg/dL Normal 0.73-1.22 [facility] Comment on above: Order Comment: Speci men Type: BLOOD SPECIMENOrdering Facility: [facility] Address: [address] [place] [address] Performed By: #### 2 4321-2, 31570-6 ####[facility] LABORATORYCLIA [id number] [place] [id number] [place] Creatinine and Glomerular filtration rate.predicted panel (S/P/Bld) 72 mL/min/1.73m??? Normal >=60 [facility] Comment on above: Order Comment: Arben daniela Type: BLOOD SPECIMENOrdering Facility: [facility] Address: [address] [place] [address] Result Comment: Bailey mated Glomerular Filtration Rate [...] actual GFR. Performed By: #### 2 4321-2, 16330-1 ####[facility] LABORATORYCLIA [id number] [place] [id number] [place] Glucose [Mass/Vol] 104 mg/dL High 74-99 [facility] Comment on above: Order Comment: Arben suarez Type: BLOOD SPECIMENOrdering Facility: [facility] Address: [address] [place] [address] Result Comment: The [place] [employer] (ADA) provides guidance for cutoff [...] Standards of Medical Care in Diabetes 2016, [place] [employer]. Diabetes Care. 2016.39(Suppl 1). Performed By: #### 2 4321-2, ####[facility] LABORATORYCLIA [id number] [place] [id number] [place] Potassium [Moles/Vol] 3.4 mmol/L Low 3.7-5.1 [facility] Comment on above: Order Comment: Speci men Type: BLOOD SPECIMENOrdering Facility: [facility] Address: [address] [place] [address] Performed By: #### 2 4321-2, ####[facility] LABORATORYCLIA [id number] [place] [id number] [place] Sodium [Moles/Vol] 142 mmol/L Normal 136-144 [facility] Comment on above: Order Comment: Speci men Type: BLOOD SPECIMENOrdering Facility: [facility] Address: [address] [place] [address] Performed By: #### 2 4321-2, ####[facility] LABORATORYCLIA [id number] [place] [address] [place] Urea nitrogen [Mass/Vol] 14 mg/dL Normal 9-24 [facility] Comment on above: Order Comment: Speci men Type: BLOOD SPECIMENOrdering Facility: [facility] Address: [address] [place] [address] Performed By: #### 2 432-2, ####GEOV[facility] LABORATORYCLIA [id number] [place] [id number] [place] CBC panel Auto (Bld)on 11-01 Erythrocyte distribution width (RBC) [Ratio] 16.8 % High 11.5-15.0 [facility] Comment on above: Order Comment: Speci men Type: BLOOD SPECIMEN [facility] Address: [address] [place] [address] Performed By: #### 5 8410-2 #### [facility] CLIA [id number] [place] [address] [place] Hematocrit (Bld) [Volume fraction] 22.2 % Low 39.0-51.0 [facility] Comment on above: Order Comment: Speci men Type: BLOOD SPECIMEN [facility] Address: [address] [place] [address] Performed By: #### 5 8410-2 #### [facility] CLIA [id number] [address] [place] [address] [place] Hemoglobin (Bld) [Mass/Vol] 7.3 g/dL Low 13.0-17.0 [facility] Comment on above: Order Comment: Speci men Type: BLOOD SPECIMEN [facility] Address: [address] [place] [address] Performed By: #### 5 8410-2 #### [facility] CLIA [id number] [address] [place] [address] [place] MCH (RBC) [Entitic mass] 30.4 pg Normal 26.0-34.0 [facility] Comment on above: Order Comment: Speci men Type: BLOOD SPECIMEN [facility] Address: [address] [place] [address] Performed By: #### 5 8410-2 #### [facility] CLIA [id number] [address] [place] [address] [place] MCHC (RBC) [Mass/Vol] 32.9 g/dL Normal 30.5-36.0 [facility] Comment on above: Order Comment: Speci men Type: BLOOD SPECIMEN [facility] Address: [address] [place] [address] Performed By: #### 5 8410-2 #### [facility] CLIA [id number] [address] [place] [address] [place] MCV (RBC) [Entitic vol] 92.5 fL Normal 80.0-100.0 [facility] Comment on above: Order Comment: Speci men Type: BLOOD SPECIMEN [facility] Address: [address] [place] [address] Performed By: #### 5 8410-2 #### [facility] CLIA [id number] [address] [place] [address] [place] Nucleated RBC (Bld) [#/Vol] 10*3/uL Normal <0.01 [facility] Comment on above: Order Comment: Speci men Type: BLOOD SPECIMEN [facility] Address: [address] [place] [address] Performed By: #### 5 8410-2 #### [facility] CLIA [id number] [address] [place] [address] [place] Platelet mean volume (Bld) [Entitic vol] 11.0 fL Normal 9.0-12.7 [facility] Comment on above: Order Comment: Speci men Type: BLOOD SPECIMEN [facility] Address: [address] [place] [address] Performed By: #### 5 8410-2 #### [facility] CLIA [id number] [address] [place] [address] [place] Platelets (Bld) [#/Vol] 172 10*3/uL Normal 150-400 [facility] Comment on above: Order Comment: Speci men Type: BLOOD SPECIMEN [facility] Address: [address] [place] [address] Performed By: #### 5 8410-2 #### [facility] CLIA [id number] [address] [place] [address] [place] RBC (Bld) [#/Vol] 2.40 10*6/uL Low 4.20-6.00 [facility] Comment on above: Order Comment: Speci men Type: BLOOD SPECIMEN [facility] Address: [address] [place] [address] Performed By: #### 5 8410-2 #### [facility] CLIA [id number] [address] [place] [address] [place] WBC (Bld) [#/Vol] 4.49 10*3/uL Normal 3.70-11.00 [facility] Comment on above: Order Comment: Speci men Type: BLOOD SPECIMEN [facility] Address: [address] [place] [address] Performed By: #### 5 8410-2 #### [facility] [id number] [address] [place] [address] [place] CNPNon 11-01-2024 CNPN Normal [facility] CONSULTon 11-01-2024 CONSULT HNO ID: [id number] Author: RASHID CLARK MD Service: Hematology/Oncology Author Type: Physician Type: Consults Filed: 11/01/2024 13:30 Note Text: HEMATOLOGY HISTORY AND PHYSICAL EXAMINATION Progress note Patient Name: Aisha Julien DATE of SERVICE: 11/01/2024 TIME of SERVICE: 10:13 AM PRIMARY CARE PHYSICIAN: Rene Cannon MD, MD REASON FOR CONSULT: GI bleed, Hb of 5.7 Interval history: The patient id feeling well, waiting for the colonoscopy [ scheduled at 1 PM today]. No more bloody BM. Hgb stable. 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 Systemic therapy with Sandostatin with Dr. Henry in [place] started 11/2023. Receives q 3 weeks. Additionally has a 1.7 cm irregularly marginated nodular mass in the left apical lung that I'd like to get a PET scan for to delineate better. - PET showed non-avidity of this lesion in June 2024. Will hold sandostatin LAR and obtain Dotatate PET to evaluate concern for pancreatic progression as well as low grade left apical lesion PAST SURGICAL HISTORY: PAST SURGICAL HISTORY Procedure Laterality Date ARTHROSCOPY KNEE DIAGNOSTIC W/WO SYNOVIAL BX SPX Bilateral states x3 COLONOSCOPY DIAGNOSTIC 2021 no polyps EGD DIAGNOSTIC 08/14/2023 PAST SURGICAL HISTORY OF 1965 tonsilectomy FAMILY HISTORY: FAMILY HISTORY Problem Relation Age of Onset Uterine Cancer Mother other (bile duct cancer) Sister Colon Cancer No Family History SOCIAL HISTORY: Social History Tobacco Use Smoking status: Never Smokeless tobacco: Never Vaping Use Vaping status: Former Substance Use Topics Alcohol use: Yes Comment: a few beers per day Drug use: Not Currently MEDICATIONS: Prior to Admission Medications: No current facility-administered medications on file prior to encounter. Current Outpatient Medications on File Prior to Encounter Medication Sig octreotide LAR (SANDOSTATIN LAR DEPOT) 20 mg Depot INJ Take to provider office for and inject 20mg IM every 3 weeks as directed losartan (COZAAR) 100 mg tablet Take 100 mg by mouth once daily. finasteride (PROSCAR) 5 mg tablet Take 5 mg by mouth every other day. MULTIVITAMIN ORAL Take by mouth. Current Facility-Administered Medications Medication Dose Route Frequency finasteride 5 mg tab(s) (PROSCAR) 5 mg ORAL DAILY pantoprazole 40 mg injection (PROTONIX) 40 mg INTRAVENOUS BID AC (0600/1600) NaCl 0.9% iv flush bag 20 mL INTRAVENOUS PRN ondansetron 4 mg tab(s) (ZOFRAN) 4 mg ORAL q 6 H PRN Or ondansetron (PF) 4 mg injection (ZOFRAN) 4 mg INTRAVENOUS q 6 H PRN acetaminophen 650 mg tab(s) (TYLENOL) 650 mg ORAL q 6 H PRN ferric gluconate 125 mg in NaCl 0.9% 100 mL (FERRLECIT) 125 mg INTRAVENOUS DAILY AT 6 PM ALLERGIES: ALLERGIES No Known Allergies PHYSICAL EXAM: BP 135/52 Pulse 70 Temp 36.6 ?C (97.9 ?F) (Oral) Resp 16 Ht 176.5 cm (5' 9.5 ) Wt 78.3 kg (172 lb 9.9 oz) SpO2 99% BMI 25.13 kg/m? EXAM GENERAL EXAM: Pale, no acute distress. EENT: No JVD, Supple AND PERRL. 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 Patient presented to [facility] ED 10/31/2024 with 1 week history of bloody diarrhea, weakness, dizziness. He also reports 2 episodes of bloody emesis. Patient initially presented to [facility] ED on 10/28/24, Hgb was 8.2. CT abd was neg. He was sent home. At found to have Hgb 5.7 s/p 2 units of PRBC. #ABLA The patient presented with bloody BM. And Hgb of 5.7 . S/p 2 units of PRBCs . Hgb today 7.3 Iron 18, Absoulte retic count 6.9. LDH 231, haptoglobin 85. The patient was evaluated by GI, plan for colonoscopy today. We discussed with the GI team , to get bx if able. No bloody BM overnight . Plan: Will wait for the colonoscopy results. Transfuse for Hgb >7, active bleeding or hemodynamic instability. C/w ferrous gluconate 5 doses. #NET S/p GJ bypass 10/29/23. Systemic therapy with Sandostatin with Dr. Henry in [place] started 11/2023 ATTENDING NOTE: Case discussed with Dr. Clark. SIGNATURE: Ziyad Santos MD DATE: November 01, 2024 TIME: 10:12 AM [facility] STAFF PHYSICIAN NOTE OF PERSONAL INVOLVEMENT IN CARE I have reviewed the progress note obtained and documented by the resident and I personally participated in the ayala components. I have discussed the case and management of the patient's care. The follow (more content not included)... Normal [facility] Colonoscopyon 11-01-2024 Colonoscopy [facility] Gastrointestinal Endoscopy Patient Name: Aisha Julien Procedure Date: 11/01/2024 2:27 PM Date of : 1955 Admit Type: Inpatient Age: 69 Room: [place] [address] Gender: Male Note Status: Finalized Attending MD: Pratik Winters MD, [id number] Procedure: Colonoscopy Indications: Evaluation of unexplained GI bleeding presenting with Hematochezia Providers: Pratik Winters MD, Radha Silva RN, Itzel Alicia RN (Assisting Nurse), Sherri Lilly (Assisting Nurse) [...] saturations were monitored continuously. The PCF H190L [id number] was introduced through the anus and advanced to the terminal ileum. The colonoscopy was performed without difficulty. The patient tolerated the procedure well. The terminal ileum, ileocecal valve, appendiceal orifice, and rectum were photographed. The quality of the bowel preparation was evaluated using the BBPS ([place] Bowel Preparation Scale) with scores of: Right [...] the patient. Procedure Code(s): --- Professional --- 45959, Colonoscopy, flexible; diagnostic, including collection of specimen(s) by brushing or washing, when performed (separate procedure) Diagnosis Code(s): --- Professional --- K64.8, Other hemorrhoids K92.1, Melena (includes Hematochezia) CPT copyright 2020 [place] [employer]. All rights reserved. The codes documented in this report are preliminary and upon pen rider review may be revised to meet current compliance requirements. Attending Participation: I personally performed the entire procedure. Scope In: 2:54:05 PM Scope Out: 3:05:46 PM MD Pratik Escobar MD 11/01/2024 3:18:10 PM This report has been signed electronically by Pratik Winters MD (more content not included)... Normal [facility] HISTORY PHYSICALon HISTORY PHYSICAL HNO ID: [id number] Author: PRATIK WINTERS MD Service: Gastroenterology Author Type: Physician Type: H&P Filed: 11/01/2024 14:25 Note Text: HISTORY AND PHYSICAL Aisha Julien, 69 year old male with PMHx of 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 Current history and physical on file: Yes Is a new History and Physical required for today's visit? No Indication for procedure: GI bleeding PROCEDURE(S) SCHEDULED FOR: Colonoscopy with or without biopsies and with or without removal of polyps or lesions, dilation (any means), treatment of bleeding (any means), based on clinical findings. and Push endoscopy BASELINE BEHAVIOR: Calm BASELINE ORIENTATION: A AND O x3 All medications and allergies reviewed: Yes Skin Assessment: Warm dry mucus membranes pink Airway/Respiratory Assessment: Airway: visualization of the uvula- Yes Mouth: opening greater than 2 fingerbreadths- Yes Neck: full range of motion- Yes Breath sounds clear/equal- Yes Cardiac Assessment: Regular rate and rhythm without murmur Abdominal Assessment: Abdomen soft, non-tender, no masses or organomegaly. Sedation Plan: MAC Additional Comments: None Pratik Winters MD Normal [facility] Haptoglob SerPl-mCncon 11-01 Haptoglobin [Mass/Vol] 85 mg/dL Normal 31-238 [facility] Comment on above: Order Comment: Speci men Type: BLOOD SPECIMEN [facility] Address: [address] [place] [address] Performed By: #### 4 542-7 #### [facility] CLIA [id number] [address] [place] [address] [place] Magnesium [facility] Magnesium [Mass/Vol] 1.9 mg/dL Normal 1.7-2.3 [facility] Comment on above: Order Comment: Speci men Type: BLOOD SPECIMENOrdering Facility: [facility] Address: [address] [place] [address] Performed By: #### 2 4321-2, 67234-1 ####L[facility] LABORATORYCLIA [id number] [place] [address] [place] Small bowel enteroscopyon Small bowel enteroscopy [facility] Gastrointestinal Endoscopy Patient Name: Aisha Julien Procedure Date: 11/01/2024 2:28 PM Date of : 1955 Admit Type: Inpatient Age: 69 Room: [place] [address] Gender: Male 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 Refer to note in patient chart for documentation of history and physical. Referring Physician: Nia Rojas CNP (Referring MD) [...] satisfactory condition to undergo the procedure. After obtaining informed consent, the endoscope was passed under direct vision. Throughout the procedure, the patient's blood pressure, pulse, and oxygen saturations were monitored continuously. The PCF H190L [id number] was introduced through the mouth and advanced to the mid-jejunum. The small bowel enteroscopy was accomplished without difficulty. The patient tolerated the procedure well. Moderate Sedation: MAC anesthesia was administered by the anesthesia team. Total Procedure Duration: 0 hours 6 minutes 22 seconds Findings: A malignant-appearing, intrinsic stenosis that was non-traversed was found in the second portion of the duodenum. There was no evidence of significant pathology in the duodenal bulb. Evidence of a gastrojejunostomy was found in the gastric body. This was characterized by healthy appearing mucosa. There was no evidence of significant pathology in the afferent jejunal loop and in the efferent jejunal loop. Diffuse mildly erythematous mucosa without bleeding was found in the gastric body. The Z-line was found 38 cm from the incisors. The examined esophagus was normal. 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 - Normal duodenal bulb. - A gastrojejunostomy was found, characterized by healthy appearing mucosa. - The examined portion of the jejunum was normal. - Erythematous mucosa in the gastric body. - Z-line, 38 cm from the incisors. - Normal esophagus. - No specimens collected. - No signs or stigmata of active or recent GI bleeding. Recommendation: - Return patient to [facility] for ongoing care. - Resume previous diet. - Continue present medications. - The patient is not currently taking anticoagulant or antiplatelet agents. Procedure Code(s): --- Professional --- 78169, Small intestinal endoscopy, enteroscopy beyond second portion of duodenum, not including ileum; diagnostic, including collection of specimen(s) by brushing or washing, when performed (separate procedure) Diagnosis Code(s): --- Professional --- K31.5, Obstruction of duodenum Z98.0, Intestinal bypass and anastomosis status K31.89, Other diseases of stomach and duodenum K92.1, Melena (includes Hematochezia) CPT copyright 2020 [place] [employer]. All rights reserved. The codes documented in this report are preliminary and upon pen rider review may be revised to meet current compliance requirements. Attending Participation: I personally performed the entire procedure. Scope In: 2:39:12 PM Scope Out: 2:45:34 PM MD Pratik Escobar MD 11/01/2024 2:52:31 PM This report has been signed electronically by Pratik Winters MD Number of Addenda: 0 Note Initiated On: 11/01/2024 2:28 PM Estimated Blood Loss: Estimated blood loss: none. Normal [facility] CBC W Auto Differential pane l (Bld)on 10-31-2024 Basophils (Bld) [#/Vol] 10*3/uL Normal <0.11 [facility] Comment on above: Order Comment: Speci men Type: BLOOD SPECIMEN [facility] Address: [address] [place] [address] Performed By: #### 5 8410-2 #### [facility] CLIA [id number] [place] [address] [place] Basophils/100 WBC (Bld) 0.4 % Normal [facility] Comment on above: Order Comment: Speci men Type: BLOOD SPECIMEN [facility]: [facility] Address: [address] [place] [address] Performed By: #### 5 8410-2 #### [facility] CLIA [id number] [address] [place] [address] [place] Differential cell count method Nom (Bld) Auto Normal [facility] Comment on above: Order Comment: Speci men Type: BLOOD SPECIMEN [facility] Facility: [facility] Address: [address] [place] [address] Performed By: #### 5 8410-2 #### [facility] CLIA [id number] [address] [place] [address] [place] Eosinophils (Bld) [#/Vol] 10*3/uL Normal <0.46 [facility] Comment on above: Order Comment: Speci men Type: BLOOD SPECIMEN [facility]ing Facility: [facility] Address: [address] [place] [address] Performed By: #### 5 8410-2 #### [facility] CLIA [id number] [address] [place] [address] [place] Eosinophils/100 WBC (Bld) 0.4 % Normal [facility] Comment on above: Order Comment: Speci men Type: BLOOD SPECIMEN [facility]ing Facility: [facility] Address: [address] [place] [address] Performed By: #### 5 8410-2 #### [facility] CLIA [id number] [address] [place] [address] [place] Erythrocyte distribution width (RBC) [Ratio] 14.6 % Normal 11.5-15.0 [facility] Comment on above: Order Comment: Speci men Type: BLOOD SPECIMEN Ordering Facility: [facility] Address: [address] [place] [address] Performed By: #### 5 8410-2 #### [facility] CLIA [id number] [address] [place] [address] [place] Hematocrit (Bld) [Volume fraction] 17.9 % Low 39.0-51.0 [facility] Comment on above: Order Comment: Speci men Type: BLOOD SPECIMEN Ordering Facility: [facility] Address: [address] [place] [address] Performed By: #### 5 8410-2 #### [facility] CLIA [id number] [address] [place] [address] [place] Hemoglobin (Bld) [Mass/Vol] 5.7 g/dL Critically low 13.0-17.0 [facility] Comment on above: Order Comment: Speci men Type: BLOOD SPECIMEN Ordering Facility: [facility] Address: [address] [place] [address] Result Comment: No c lot detected. Performed By: #### 5 8410-2 #### [facility] CLIA [id number] [address] [place] [address] [place] Immature granulocytes (Bld) [#/Vol] 0.05 10*3/uL Normal <0.10 [facility] Comment on above: Order Comment: Speci men Type: BLOOD SPECIMEN Ordering Facility: [facility] Address: [address] [place] [address] Performed By: #### 5 8410-2 #### [facility] CLIA [id number] [address] [place] [address] [place] [place] Immature granulocytes/100 WBC (Bld) 0.9 % Normal [facility] Comment on above: Order Comment: Speci men Type: BLOOD SPECIMEN Ordering Facility: [facility] Address: [address] [place] [address] Performed By: #### 5 8410-2 #### [facility] CLIA [id number] [address] [place] [address] [place] Lymphocytes (Bld) [#/Vol] 0.43 10*3/uL Low 1.00-4.00 [facility] Comment on above: Order Comment: Speci men Type: BLOOD SPECIMEN Ordering Facility: [facility] Address: [address] [place] [address] Performed By: #### 5 8410-2 #### [facility] CLIA [id number] [address] [place] [address] [place] Lymphocytes/100 WBC (Bld) 7.7 % Normal [facility] Comment on above: Order Comment: Speci men Type: BLOOD SPECIMEN Ordering Facility: [facility] Address: [address] [place] [address] Performed By: #### 5 8410-2 #### [facility] CLIA [id number] [address] [place] [address] [place] MCH (RBC) [Entitic mass] 30.5 pg Normal 26.0-34.0 [facility] Comment on above: Order Comment: Speci men Type: BLOOD SPECIMEN Ordering Facility: [facility] Address: [address] [place] [address] Performed By: #### 5 8410-2 #### [facility] CLIA [id number] [address] [place] [address] [place] MCHC (RBC) [Mass/Vol] 31.8 g/dL Normal 30.5-36.0 [facility] Comment on above: Order Comment: Speci men Type: BLOOD SPECIMEN Ordering Facility: [facility] Address: [address] [place] [address] Performed By: #### 5 8410-2 #### [facility] CLIA [id number] [address] [place] [address] [place] MCV (RBC) [Entitic vol] 95.7 fL Normal 80.0-100.0 [facility] Comment on above: Order Comment: Speci men Type: BLOOD SPECIMEN Ordering Facility: [facility] Address: [address] [place] [address] Performed By: #### 5 8410-2 #### [facility] CLIA [id number] [address] [place] [address] [place] Monocytes (Bld) [#/Vol] 0.81 10*3/uL Normal <0.87 [facility] Comment on above: Order Comment: Speci men Type: BLOOD SPECIMEN Ordering Facility: [facility] Address: [address] [place] [address] Performed By: #### 5 8410-2 #### [facility] CLIA [id number] [address] [place] [address] [place] Monocytes/100 WBC (Bld) 14.6 % Normal [facility] Comment on above: Order Comment: Speci men Type: BLOOD SPECIMEN Ordering Facility: [facility] Address: [address] [place] [address] Performed By: #### 5 8410-2 #### [facility] CLIA [id number] [address] [place] [address] [place] Neutrophils (Bld) [#/Vol] 4.23 10*3/uL Normal 1.45-7.50 [facility] Comment on above: Order Comment: Speci men Type: BLOOD SPECIMEN Ordering Facility: [facility] Address: [address] [place] [address] Performed By: #### 5 8410-2 #### [facility] CLIA [id number] [address] [place] [address] [place] Neutrophils/100 WBC (Bld) 76.0 % Normal [facility] Comment on above: Order Comment: Speci men Type: BLOOD SPECIMEN Ordering Facility: [facility] Address: [address] [place] [address] Performed By: #### 5 8410-2 #### [facility] CLIA [id number] [address] [place] [address] [place] Nucleated RBC (Bld) [#/Vol] 10*3/uL Normal <0.01 [facility] Comment on above: Order Comment: Speci men Type: BLOOD SPECIMEN Ordering Facility: [facility] Address: [address] [place] [address] Performed By: #### 5 8410-2 #### [facility] CLIA [id number] [address] [place] [address] [place] Nucleated RBC/100 WBC (Bld) [Ratio] 0.0 /100 WBC Normal [facility] Comment on above: Order Comment: Speci men Type: BLOOD SPECIMEN Ordering Facility: [facility] Address: [address] [place] [address] Performed By: #### 5 8410-2 #### [facility] CLIA [id number] [address] [place] [address] [place] Platelet mean volume (Bld) [Entitic vol] 11.8 fL Normal 9.0-12.7 [facility] Comment on above: Order Comment: Speci men Type: BLOOD SPECIMEN Ordering Facility: [facility] Address: [address] [place] [address] Performed By: #### 5 8410-2 #### [facility] CLIA [id number] [place] [address] [place] Platelets (Bld) [#/Vol] 174 10*3/uL Normal 150-400 [facility] Comment on above: Order Comment: Speci men Type: BLOOD SPECIMEN Ordering Facility: [facility] Address: [address] [place] [address] Performed By: #### 5 8410-2 #### [facility] CLIA [id number] [address] [place] [address] [place] RBC (Bld) [#/Vol] 1.87 10*6/uL Low 4.20-6.00 [facility] Comment on above: Order Comment: Speci men Type: BLOOD SPECIMEN Ordering Facility: [facility] Address: [address] [place] [address] Performed By: #### 5 8410-2 #### [facility] CLIA [id number] [address] [place] [address] [place] WBC (Bld) [#/Vol] 5.56 10*3/uL Normal 3.70-11.00 [facility] Comment on above: Order Comment: Speci men Type: BLOOD SPECIMEN Ordering Facility: [facility] Address: [address] [place] [address] Performed By: #### 5 8410-2 #### [facility] CLIA [id number] [address] [place] [address] [place] CBC panel Auto (Bld)on 10-31 Erythrocyte distribution width (RBC) [Ratio] 16.4 % High 11.5-15.0 [facility] Comment on above: Order Comment: Speci men Type: BLOOD SPECIMEN Ordering Facility: [facility] Address: [address] [place] [address] Performed By: #### 5 8410-2 #### [facility] CLIA [id number] [address] [place] [address] Hematocrit (Bld) [Volume fraction] 23.5 % Low 39.0-51.0 [facility] Comment on above: Order Comment: Speci men Type: BLOOD SPECIMEN Ordering Facility: [facility] Address: [address] [place] [address] Performed By: #### 5 8410-2 #### [facility] CLIA [id number] [address] [place] [address] [place] Hemoglobin (Bld) [Mass/Vol] 7.6 g/dL Low 13.0-17.0 [facility] Comment on above: Order Comment: Speci men Type: BLOOD SPECIMEN Ordering Facility: [facility] Address: [address] [place] [address] Performed By: #### 5 8410-2 #### [facility] CLIA [id number] [address] [place] [address] [place] MCH (RBC) [Entitic mass] 30.3 pg Normal 26.0-34.0 [facility] Comment on above: Order Comment: Speci men Type: BLOOD SPECIMEN Ordering Facility: [facility] Address: [address] [place] [address] Performed By: #### 5 8410-2 #### [facility] CLIA [id number] [address] [place] [address] [place] MCHC (RBC) [Mass/Vol] 32.3 g/dL Normal 30.5-36.0 [facility] Comment on above: Order Comment: Speci men Type: BLOOD SPECIMEN Ordering Facility: [facility] Address: [address] [place] [address] Performed By: #### 5 8410-2 #### [facility] CLIA [id number] [address] [place] [address] [place] MCV (RBC) [Entitic vol] 93.6 fL Normal 80.0-100.0 [facility] Comment on above: Order Comment: Speci men Type: BLOOD SPECIMEN Ordering Facility: [facility] Address: [address] [place] [address] Performed By: #### 5 8410-2 #### [facility] CLIA [id number] [address] [place] [address] [place] Nucleated RBC (Bld) [#/Vol] 10*3/uL Normal <0.01 [facility] Comment on above: Order Comment: Speci men Type: BLOOD SPECIMEN Ordering Facility: [facility] Address: [address] [place] [address] Performed By: #### 5 8410-2 #### [facility] CLIA [id number] [address] [place] [address] [place] Platelet mean volume (Bld) [Entitic vol] 11.6 fL Normal 9.0-12.7 [facility] Comment on above: Order Comment: Speci men Type: BLOOD SPECIMEN Ordering Facility: [facility] Address: [address] [place] [address] Performed By: #### 5 8410-2 #### [facility] CLIA [id number] [address] [place] [address] [place] Platelets (Bld) [#/Vol] 164 10*3/uL Normal 150-400 [facility] Comment on above: Order Comment: Speci men Type: BLOOD SPECIMEN Ordering Facility: [facility] Address: [address] [place] [address] Performed By: #### 5 8410-2 #### [facility] CLIA [id number] [address] [place] [address] [place] RBC (Bld) [#/Vol] 2.51 10*6/uL Low 4.20-6.00 [facility] Comment on above: Order Comment: Speci men Type: BLOOD SPECIMEN Ordering Facility: [facility] Address: [address] [place] [address] Performed By: #### 5 8410-2 #### [facility] CLIA [id number] [address] [place] [address] [place] WBC (Bld) [#/Vol] 6.24 10*3/uL Normal 3.70-11.00 [facility] Comment on above: Order Comment: Speci men Type: BLOOD SPECIMEN Ordering Facility: [facility] Address: [address] [place] [address] Performed By: #### 5 8410-2 #### [facility] CLIA [id number] [address] [place] [address] OF [place] CONSULTon 10-31-2024 CONSULT HNO ID: [id number] Author: NIA ROJAS APRN.CATHEAD OPERATOR Service: Gastroenterology Author Type: Nurse Practitioner Type: Consults Filed: 10/31/2024 16:33 Note Text: GI INITIAL CONSULT NOTE SERVICE DATE: 10/31/2024 SERVICE TIME: 1500 REASON FOR CONSULT: GIB, hgb 5.7 REQUESTING PHYSICIAN: KRISTI Trent PRIMARY CARE PHYSICIAN: Rene Cannon MD, MD ASSESSMENT/PLAN 1.) ?Hematemesis 2.) Melena/hematochezia 3.) Severe anemia 4.) Metastatic neuroendocrine tumor No leukocytosis, afebrile Hgb 12 (10/15/2024) now 5.7 - blood infusing at time of consult 2 units ordered per primary Plt normal LFTS normal No NSAID or AC use Abd exam benign +EtOH - 6 beers per day, last drink yesterday PET scan 07/2024 MPRESSION: PRIMARY DISEASE SITE: * Slight increased size [...] FINDINGS: * New left UVJ nonobstructing calculus. - continue PPI IV BID for now - blood transfusion(s) as needed, defer to primary - Plan for PUSH/colonoscopy tomorrow for further evaluation. Dr. Clark at bedside at time of consult, if able asking for bx to see if there is progression because then would need to change therapy to chemo possibly. Informed pt after discussion with staff would try but if extensive bleeding would likely not be able. Pt states he verbally understood. - informed RN can wait until 2nd unit blood infusing prior to starting bowel prep, trying to prevent falls will need some help to bedside commode. - if becomes unstable prior to scopes tomorrow recommend STAT CTA for further evaluation Discussed case in detail with Dr. Singh Boyer Mr. Julien is a 69 year old male with PMHx of 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 Pt states he has been bleeding for the past week about 3 black/BRBPR per day. States did vomit what he thought looked like blood also but states did have some chili also. Since then he has been trying not to eat so that he did not have a stool, but that did not work. He has been seen at [facility], had EGD with peg j tube placements at [facility] but colonoscopy was at [facility] 2020. Pt follows with cameron/onc currently on octreotide. PET scan looks like progression 07/2024. Complaining of some sharp upper abdomen tenderness intermittently and states that is when he had his emesis and bloody BM. This is not constant. Denies smoking. States drinks everyday 6 pack beer and last drink was yesterday. Denies NSAID use or being on AC. Previous GI workup EGD peg-J placement Impression: - Malignant jejunal stenosis. - J tube was repositioned into jejunum successfully over the wire under fluoroscopy. - Tube placement confirmed under fluoroscopy. EGD upper EUS 08/13/2023 Impression: - Mucosal changes in the duodenum. - Acquired duodenal stenosis. - A mass was identified in the uncinate process of the pancreas. Fine needle biopsy performed. - Many abnormal lymph nodes were visualized in the ab hepatis region. Fine needle biopsy performed. - An externally removable PEG-J placement was successfully completed. FINAL DIAGNOSIS A - LYMPH NODE FINE NEEDLE ASPIRATION - PORTAL LYMPH NODE Metastatic neoplastic cells derived from pancreatic low-grade neuroendocrine tumor, in a background of a lymphoid sample (see comment). B - PANCREAS FINE NEEDLE ASPIRATION - UNCINATE PROCESS Neoplastic cells derived from pancreatic low-grade neuroendocrine tumor (see comment). FUNCTIONAL STATUS: Independent Labs: WBC 5.56, Hgb 5.7, Hct 17.9, Plt 174, MCV 95.7, BUN 23, Cr 1.30, LFTs unremarkable PAST MEDICAL HISTORY Diagnosis Date Essential hypertension [...] Never Smokeless tobacco: Never Vaping Use Vaping status: Former Substance Use Topics Alcohol use: Yes Comment: a few beers per day Drug use: Not Currently octreotide LAR (SANDOSTATIN LAR DEPOT) 20 mg Depot INJ, Take to provider office (more content not included)... Normal [facility] CONSULT HNO ID: [id number] Author: RASHID CLARK MD Service: Hematology/Oncology Author Type: Physician Type: Consults Filed: 10/31/2024 21:15 Note Text: CONSULT: Hematology/Oncology Service SERVICE DATE: 10/31/2024 SERVICE TIME: 1330 REASON FOR CONSULT: Complications of treatment, GIB, Hgb 5.7 REQUESTING PHYSICIAN: RIVERA PIPER PRIMARY CARE PHYSICIAN: Rene Cannon MD, MD Subjective Mr. 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 Patient presented to [facility] ED 10/31/2024 with 1 week history of bloody diarrhea, weakness, dizziness. He also reports 2 episodes of bloody emesis. Patient initially presented to [facility] ED on 10/28/24, Hgb was 8.2. CT abd was neg. He was sent home. [facility] ED workup today: - Hgb 5.4 - Creatinine 1.3 2 units PRBCs ordered along with GI consult. 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 - S/p GJ bypass 10/29/23 - Systemic therapy with Sandostatin with Dr. Henry in [place] started 11/2023. Receives q 3 weeks. - Most recently seen by Nancy Gray 08/13/24: Additionally has a 1.7 cm irregularly marginated nodular mass in the left apical lung that I'd like to get a PET scan for to delineate better. - PET showed non-avidity of this lesion in June 2024. Will hold sandostatin LAR and obtain Dotatate PET to evaluate concern for pancreatic progression as well as low grade left apical lesion. PAST MEDICAL HISTORY Diagnosis Date Essential hypertension [...] Never Smokeless tobacco: Never Vaping Use Vaping status: Former Substance Use Topics Alcohol use: Yes Comment: a few beers per day Drug use: Not Currently octreotide LAR (SANDOSTATIN LAR DEPOT) 20 mg Depot INJ, Take to provider office for and inject 20mg IM every 3 weeks as directed, Disp: 1 Each, Rfl: 11, 10/15/2024 losartan (COZAAR) 100 mg tablet, Take 100 mg by mouth once daily., Disp: , Rfl: MULTIVITAMIN ORAL, Take by mouth., Disp: , Rfl: finasteride (PROSCAR) 5 mg tablet, Take 5 mg by mouth every other day., Disp: , Rfl: Current Facility-Administered Medications Medication Dose Route Frequency losartan 100 mg tab(s) (COZAAR) 100 mg ORAL DAILY [START ON 11/01/2024] finasteride 5 mg tab(s) (PROSCAR) 5 mg ORAL DAILY pantoprazole 40 mg injection (PROTONIX) 40 mg INTRAVENOUS BID AC (0600/1600) NaCl 0.9% iv flush bag 20 mL INTRAVENOUS PRN ondansetron 4 mg tab(s) (ZOFRAN) 4 mg ORAL q 6 H PRN Or ondansetron (PF) 4 mg injection (ZOFRAN) 4 mg INTRAVENOUS q 6 H PRN acetaminophen 650 mg tab(s) (TYLENOL) 650 mg ORAL q 6 H PRN Allergies As of Date: 10/31/2024 (No Known Allergies) Fully Assessed 10/31/2024 Lines, Drains, and Airways Line Duration Peripheral 10/31/24 1259 [facility] Short Right Forearm 20 Gauge <1 day COMPLETE REVIEW OF SYSTEMS: As in HPI PHYSICAL EXAM: BP (!) 133/48 Pulse 102 Temp 36.7 ?C (98.1 ?F) (Oral) Resp 16 Ht 176.5 cm (5' 9.5 ) Wt 78.3 kg (172 lb 9.9 oz) SpO2 100% BMI 25.13 kg/m? DATA: LABS: Recent Labs 10/31/24 1221 WBC 5.56 RBC 1.87* HB 5.7* HCT 17.9* MCV 95.7 PLT 174 NEUTP 76.0 LYMPHP 7.7 MONOP 14.6 EODINP 0.4 BASOP 0.4 ABSNEUT 4.23 ABSMONO 0.81 ABSEOSIN <0.03 ABSBASO <0.03 GLUC 118* BUN 23 CREAT 1.30* NA 136 K 4.2 CHLOR 104 CO2 19* TPROT 5.5* ALB 3.2* CA 7.9* ALKPHOS 95 TBILI 0.4 AST 27 ALT 16 Impression/Recommendatio ns 1) Acute on chronic anemia - Hgb baseline in 11s. - Was down to 8s just a few days ago. Now down to 5.7. Serum iron only 18, unable to analyze transferrin saturation. Recommend IV ferric gluconate daily x 5 doses while admitted. - Pt reports ongoing bloody diarrhea x 1 week with a couple episodes of blood emesis. - Agree with GI consultation. Plan for scopes tomorrow. On Protonix. - Transfuse to keep Hgb > 7g/dL. - Will check hemolysis labs. 2) Metastatic small bowel NET - S/p GJ bypass 10/29/23 - Systemic therapy with Sandostatin q [address] Henry in [place]. - Apparently patient had CT abd at outside ED? Cannot see results but consider CT imaging. Thank you for this consult. Will continue to follow along. Dr. Clark to comment further below. Kelley Baker, SOCIETY REPORTER.[facility] Hematology/Oncology Radha Tiwari/ [facility] [phone] [facility] STAFF PHYSICIAN NOTE OF PERSONAL INVOLVEMENT (more content not included)... Normal [facility] Comprehensive metabolic 2000 panelon 10-31-2024 Albumin [Mass/Vol] 3.2 g/dL Low 3.9-4.9 [facility] Comment on above: Order Comment: Speci men Type: BLOOD SPECIMEN Ordering Facility: [facility] Address: [address] [place] [address] Performed By: #### 5 8410-2 #### [facility] CLIA [id number] [address] [place] [address] [place] ALP [Catalytic activity/Vol] 95 U/L Normal 38-113 [facility] Comment on above: Order Comment: Speci men Type: BLOOD SPECIMEN Ordering Facility: [facility] Address: [address] [place] [address] Performed By: #### 5 8410-2 #### [facility] CLIA [id number] [place] [address] [place] ALT [Catalytic activity/Vol] 16 U/L Normal 10-54 [facility] Comment on above: Order Comment: Speci men Type: BLOOD SPECIMEN Ordering Facility: [facility] Address: [address] [place] [address] Performed By: #### 5 8410-2 #### [facility] CLIA [id number] [address] [place] [address] [place] Anion gap [Moles/Vol] 13 mmol/L Normal 8-15 [facility] Comment on above: Order Comment: Speci men Type: BLOOD SPECIMEN Ordering Facility: [facility] Address: [address] [place] [address] Performed By: #### 5 8410-2 #### [facility] CLIA [id number] [address] [place] [address] [place] AST [Catalytic activity/Vol] 27 U/L Normal 14-40 [facility] Comment on above: Order Comment: Speci men Type: BLOOD SPECIMEN Ordering Facility: [facility] Address: [address] [place] [address] Performed By: #### 5 8410-2 #### [facility] CLIA [id number] [address] [place] [address] [place] Bilirubin [Mass/Vol] 0.4 mg/dL Normal 0.2-1.3 [facility] Comment on above: Order Comment: Speci men Type: BLOOD SPECIMEN Ordering Facility: [facility] Address: [address] [place] [address] Performed By: #### 5 8410-2 #### [facility] CLIA [id number] [address] [place] [address] [place] Calcium [Mass/Vol] 7.9 mg/dL Low 8.5-10.2 [facility] Comment on above: Order Comment: Speci men Type: BLOOD SPECIMEN Ordering Facility: [facility] Address: [address] [place] [address] Performed By: #### 5 8410-2 #### [facility] CLIA [id number] [place] [address] [place] Chloride [Moles/Vol] 104 mmol/L Normal 98-107 [facility] Comment on above: Order Comment: Speci men Type: BLOOD SPECIMEN Ordering Facility: [facility] Address: [address] [place] [address] Performed By: #### 5 8410-2 #### [facility] CLIA [id number] [address] [place] [address] [place] CO2 [Moles/Vol] 19 mmol/L Low 22-30 [facility] Comment on above: Order Comment: Speci men Type: BLOOD SPECIMEN Ordering Facility: [facility] Address: [address] [place] [address] Performed By: #### 5 8410-2 #### [facility] CLIA [id number] [address] [place] [address] [place] Creatinine [Mass/Vol] 1.30 mg/dL High 0.73-1.22 [facility] Comment on above: Order Comment: Speci men Type: BLOOD SPECIMEN Ordering Facility: [facility] Address: [address] [place] [address] Performed By: #### 5 8410-2 #### [facility] CLIA [id number] [address] [place] [address] Creatinine and Glomerular filtration rate.predicted panel (S/P/Bld) 59 mL/min/1.73m??? Low >=60 [facility] Comment on above: Order Comment: Speci men Type: BLOOD SPECIMEN Ordering Facility: [facility] Address: [address] [place] [address] Result Comment: Bailey mated Glomerular Filtration Rate [...] accurately reflect actual GFR. Performed By: #### 5 8410-2 #### [facility] CLIA [id number] [place] [address] [place] Glucose [Mass/Vol] 118 mg/dL High 74-99 [facility] Comment on above: Order Comment: Arben suarez Type: BLOOD SPECIMEN Ordering Facility: [facility] Address: [address] [place] [address] Result Comment: The [place] [employer] (ADA) provides guidance for cutoff [...] Standards of Medical Care in Diabetes 2016, [place] [employer]. Diabetes Care. 2016.39(Suppl 1). Performed By: #### 5 8410-2 #### [facility] CLIA [id number] [address] [place] [address] [place] Potassium [Moles/Vol] 4.2 mmol/L Normal 3.7-5.1 [facility] Comment on above: Order Comment: Arben suarez Type: BLOOD SPECIMEN Ordering Facility: [facility] Address: [address] [place] [address] Performed By: #### 5 8410-2 #### [facility] CLIA [id number] [address] [place] [address] [place] Protein [Mass/Vol] 5.5 g/dL Low 6.3-8.0 [facility] Comment on above: Order Comment: Arben suarez Type: BLOOD SPECIMEN Ordering Facility: [facility] Address: [address] [place] [address] Performed By: #### 5 8410-2 #### [facility] CLIA [id number] [address] [place] [address] [place] Sodium [Moles/Vol] 136 mmol/L Normal 136-144 [facility] Comment on above: Order Comment: Demarcusbrooks suarez Type: BLOOD SPECIMEN Ordering Facility: [facility] Address: [address] [place] [address] Performed By: #### 5 8410-2 #### [facility] CLIA [id number] [address] [place] [id number] [facility] Urea nitrogen [Mass/Vol] 23 mg/dL Normal 9-24 [facility] Comment on above: Order Comment: Arben daniela Type: BLOOD SPECIMEN Ordering Facility: [facility] Address: [address] [id number] Performed By: #### 5 8410-2 #### [facility] CLIA [id number] [place] [id number] [facility] ED NOTEon 10-31-2024 ED NOTE HNO ID: [id number] Author: KATIUSKA KEENE RN Service: ? Author Type: Registered Nurse Type: ED Notes Filed: 10/31/2024 11:37 Note Text: Bed: 26-ED Expected date: Expected time: Means of arrival: Comments: TRIAGE Normal [facility] ED PROV NOTEon 10-31-2024 ED PROV NOTE HNO ID: [id number] Author: KAVITA THOMAS MD Service: Emergency Medicine Author Type: Physician Type: ED Provider Notes Filed: 10/31/2024 20:27 Note Text: ED Provider Note Patient Name: Aisha Julien : 1955 SERVICE DATE: 10/31/24 History Patient presents with: Gastrointestinal Bleed: Blood in stool x 1 week. Denies anticoagulant use. 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 Was seen at [facility] ED 3 days ago and had labs/CT done. stats that all he was told was that he was anemic and he should come to the [facility] to have further work-up done. He denies any fevers, chills, sweats, chest pain, shortness of breath, back pain, changes in urine habits, leg swelling or discomfort. PAST MEDICAL HISTORY Diagnosis Date Essential hypertension [...] Never Smokeless tobacco: Never Vaping Use Vaping status: Former Substance and Sexual Activity Alcohol use: Yes Comment: a few beers per day Drug use: Not Currently Sexual activity: Not on file ALLERGIES No Known Allergies Review of Systems Constitutional: Negative. HENT: Negative. Eyes: Negative. Respiratory: Negative. Cardiovascular: Negative. Gastrointestinal: Negative. Genitourinary: Negative. Musculoskeletal: Negative. Skin: Negative. Allergic/Immunologic: Negative. Physical Exam Vitals BP Pulse Temp Temp src Resp SpO2 Weight Height 10/31/24 1136 10/31/24 1136 10/31/24 1136 10/31/24 1136 10/31/24 1136 10/31/24 1136 10/31/24 1136 10/31/24 1136 124/70 (!) 98 36.8 ?C (98.2 ?F) Oral 18 100 % 77.1 kg (170 lb) 1.753 m (5' 9 ) Physical Exam Vitals and nursing note reviewed. Constitutional: Appearance: He is well-developed. HENT: Head: Normocephalic. Eyes: Conjunctiva/sclera: Conjunctivae normal. Cardiovascular: Rate and Rhythm: Normal rate and regular rhythm. Pulmonary: Effort: Pulmonary effort is normal. Breath sounds: Normal breath sounds. Abdominal: General: Bowel sounds are increased. There is no distension. Palpations: Abdomen is soft. Tenderness: There is no abdominal tenderness. Musculoskeletal: General: Normal range of motion. Cervical back: Normal range of motion. Skin: General: Skin is warm and dry. Neurological: Mental Status: He is alert. Diagnostic Testing ED Labs Ordered and Reviewed COMPLETE BLOOD COUNT AND DIFFERENTIAL - Abnormal; Notable for the following components: Result Value Ref Range RBC 1.87 (*) 4.20 - 6.00 m/uL Hemoglobin 5.7 (*) 13.0 - 17.0 g/dL Hematocrit 17.9 (*) 39.0 - 51.0 % Abs Lymph 0.43 (*) 1.00 - 4.00 k/uL All other components within normal limits COMPREHENSIVE METABOLIC PANEL - Abnormal; Notable for the following components: Protein, Total 5.5 (*) 6.3 - 8.0 g/dL Albumin 3.2 (*) 3.9 - 4.9 g/dL Calcium, Total 7.9 (*) 8.5 - 10.2 mg/dL Glucose 118 (*) 74 - 99 mg/dL Creatinine 1.30 (*) 0.73 - 1.22 mg/dL CO2 19 (*) 22 - 30 mmol/L Estimated Glomerular Filtration Rate 59 (*) >=60 mL/min/1.73m? 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 The patient is status post palliative GJ bypass on 10/29/2023 and presents for systemic therapy with SSA (Sandostatin). CT scan in January 2024 with improvement in disease. Symptoms remain stable overall except for a recent episode (April 2024) of syncope that was preceded by nausea. I am unsure if this is related to active disease versus single episode. Additionally has a 1.7 cm irregularly marginated nodular mass in the left apical lung that I'd like to get a PET (more content not included)... Normal [facility] EKGon 10-31-2024 Electrocardiogram Ventricular Rate : 7 5 BPM Atrial Rate : 75 BPM P-R Interval : 168 ms QRS Duration : 98 ms Q-T Interval : 371 ms QTC Calculation(Bazett) : 415 ms Calculated P Tebbetts : 50 degrees Calculated R Tebbetts : -8 degrees Calculated T Tebbetts : 9 degrees Sinus rhythm Low voltage, precordial leads Otherwise Normal ECG No significant change was found Confirmed by MD THOMAS TODD SAMUEL ([id number]) on 10/31/2024 12:42:55 PM NAME : AISHA JULIEN PID : [id number] : 1955 Gender : Male Race : ORD : Procedure Date : Oct 31 2024 12:24:47 Edit Date : Oct 31 2024 12:42:58 Diagnosis: Sinus rhythm Low voltage, precordial leads Otherwise Normal ECG No significant change was found Confirmed by MD THOMAS TODD SAMUEL ([id number]) on 10/31/2024 12:42:55 PM Test Reason : Location : 402 : FVED [id number] Overread By : MD THOMAS TODD SAMUEL Edited By : MD THOMAS TODD SAMUEL Referred By : , Acquired by : [id number], Catherine [facility] HISTORY PHYSICALon HISTORY PHYSICAL HNO ID: [id number] Author: RVIERA PIPER PA-C Service: General Internal Medicine Author Type: Physician Banquet Coordinator Type: H&P Filed: 10/31/2024 15:07 Note Text: Department of Internal Medicine HISTORY AND PHYSICAL EXAMINATION SERVICE DATE: 10/31/2024 SERVICE TIME: 3:01 PM PRIMARY CARE PHYSICIAN: Rene Cannon MD, MD CONTACT COVERAGE: See Treatment Team and contact assigned MAYELA. If no MAYELA assigned: -5N/5W/5PAV/6th floor/2S or ED Hold, [facility] Team A: [phone] [facility] or [facility], [facility] Team B: [phone] Subjective CHIEF COMPLAINT: GI bleed HPI: Mr. Alexander is a 69 yo male who presents today with bloody diarrhea x 1 wk along with a feeling of weakness and dizzyness. 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 Other PMH includes HTN, HLD, BPH, CKD stage 3a. He initially went to [facility] ED on 10/28 where Hb as 8.2. CT of abdomen did not show any new/acute findings. He was discharged in stable condition and told to return to ED if sxs do not resolve. Hospital course Vitals are stable Labs show a Hb of 5.4 with no leukocytosis Electrolytes are stable Creat 1.30 which is slightly elevated from baseline ECG NSR, QGC 415. Patient was seen at bedside . Code status discussed and patient wishes to be full code. FUNCTIONAL STATUS: Independent PAST MEDICAL HISTORY Diagnosis Date Essential hypertension [...] Never Smokeless tobacco: Never Vaping Use Vaping status: Former Substance Use Topics Alcohol use: Yes Comment: a few beers per day Drug use: Not Currently Prior to Admission Medications Prescriptions Last Dose Informant Patient Reported? Taking? MULTIVITAMIN ORAL Yes No Sig: Take by mouth. dilTIAZem CR (TIAZAC, TAZTIA XT) 180 mg 24 hr capsule Yes No Sig: Take 180 mg by mouth once daily. finasteride (PROSCAR) 5 mg tablet Yes No Sig: Take 5 mg by mouth every other day. losartan (COZAAR) 100 mg tablet Yes No Sig: Take 100 mg by mouth once daily. metoprolol succinate ER (TOPROL XL) 50 mg 24 hr tablet Yes No Sig: Take 50 mg by mouth once daily. octreotide LAR (SANDOSTATIN LAR DEPOT) 20 mg Depot INJ No No Sig: Take to provider office for and inject 20mg IM every 3 weeks as directed Facility-Administered Medications: None ALLERGIES No Known Allergies COMPLETE REVIEW OF SYSTEMS: Review of Systems Constitutional: Positive for fatigue. Negative for fever. Respiratory: Positive for shortness of breath. Cardiovascular: Negative for chest pain. Gastrointestinal: Positive for blood in stool, diarrhea, nausea and vomiting. Neurological: Positive for dizziness and weakness. Negative for syncope. Objective PHYSICAL EXAM: Physical Exam Constitutional: Appearance: Normal appearance. Eyes: Extraocular Movements: Extraocular movements intact. Pupils: Pupils are equal, round, and reactive to light. Cardiovascular: Rate and Rhythm: Normal rate and regular rhythm. Pulmonary: Effort: Pulmonary effort is normal. Breath sounds: Normal breath sounds. Abdominal: General: Abdomen is flat. Palpations: Abdomen is soft. Neurological: Mental Status: He is alert and oriented to person, place, and time. BP 118/55 Pulse 71 Temp (Src) 98.4 (Oral) Resp 18 Ht 5' 9.5 (1.77m) Wt 172 lb 9.9 oz (78.3kg) SpO2 100% BMI 25.13 kg/(m2). O2 Therapy: Room Air DATA: Diagnostic tests reviewed for today's visit: Most recent labs and imaging results. Assessment/Plan Assessment AND Plan GI bleed Mr. Alexander presents today with 1 wk of bloody diarrhea and 2 episodes of bloody emesis. Went to [facility] ED 4 days ago and hb was 8.2. Also experiencing sxs of fatigue, dyspnea, and occ dizzyness. 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 Plan: -ordered RBC transfusion of 2units. -GI on consult, appreciate recs. -IVF -NPO after midnight-Hgb on arrival and k4szbdm x 24 hours. -Monitor stool color and volume. -Transfuse again if Hgb <7 and patient symptomatic. -IV Protonix BID. -GI consulted; awaiting recommendations. Neuroendocrine tumor Pt in care with oncologist Dr. Roselyn Leonard. Most recent PET scan was Jul 2024. Since provider does not round at [facility] will place consult with [facility] heme/onc for eval and recommendations. Anemia Pt with a Hb of 5.7. ot (more content not included)... Normal [facility] Iron and Iron binding capaci ty panelon 10-31-2024 Iron [Mass/Vol] 18 ug/dL Low 41-186 [facility] Comment on above: Order Comment: Arben suarez Type: BLOOD SPECIMEN Ordering Facility: [facility] Address: [address] [id number] Performed By: #### 5 8410-2 #### [facility] CLIA [id number] [address] [place] [address] [place] Iron binding capacity [Mass/Vol] Normal [facility] Comment on above: Order Comment: Arben suarez Type: BLOOD SPECIMEN Ordering Facility: [facility] Address: [address] [place] [address] Result Comment: Unab le to assay due to interference from hemolysis. Suggest reorder as clinically indicated. Performed By: #### 5 8410-2 #### [facility] CLIA [id number] [place] [address] [place] [facility] Iron/TIBC [Molar ratio] Normal [facility] Comment on above: Order Comment: Speci men Type: BLOOD SPECIMEN Ordering Facility: [facility] Address: [address] [place] [address] Result Comment: Unab le to assay due to interference from hemolysis. Suggest reorder as clinically indicated. Performed By: #### 5 8410-2 #### [facility] CLIA [id number] [address] [place] [address] [place] LDH SerPl-cCncon 10-31-2024 LDH [Catalytic activity/Vol] 231 U/L High 100-220 [facility] Comment on above: [facility]: BLOOD [facility]CIMEN Ordering Facility: [facility] Address: [address] [place] [address] Result Comment: Hemo lysis present. The origin of the hemolysis, in vitro versus an in vivo hemolytic process, cannot be distinguished via this assay alone. In vitro hemolysis may lead to non-physiological (spurious) elevation in lactate dehydrogenase (LDH) results. The result should be interpreted in context of the clinical setting and other test results. Suggest reorder as clinically indicated. Performed By: #### 5 8410-2 #### [facility] CLIA [id number] [address] [place] [address] [place] Lipase SerPl-cCncon 11-01-19 25 Lipase [Catalytic activity/Vol] 49 U/L Normal 16-61 [facility] Comment on above: Order Comment: Speci [facility] Type: BLOOD SPECIMEN Ordering Facility: [facility] Address: [address] [place] [address] Performed By: #### 5 8410-2 #### [facility] CLIA [id number] [address] [place] [address] [place] NURSING PROGon 10-31-2024 NURSING PROG HNO ID: [id number] Author: CIARAN FLOYD, RN Service: Nursing Author Type: Registered Nurse Type: Nursing Progress Note Filed: 10/31/2024 14:28 Note Text: Transfer Note: PATIENT NAME: Aisha Julien Patient Location: [place] [address] [address] 08-25 Room: [place] [address] Patient transferred into room/unit 541 in stable condition. Actions taken: No futher actions taken at this time. Will continue to monitor and check with patient. Normal [facility] Retics #on 10-31-2024 Reticulocytes (Bld) [#/Vol] 0.18577 10*3/uL High 0.018-0.10 0 [facility] Comment on above: Order Comment: Speci men Type: BLOOD SPECIMEN Ordering Facility: [facility] Address: [address] [place] [address] Performed By: #### 5 8410-2 #### [facility] CLIA [id number] [address] [place] [address] [place] Reticulocytes (Bld) [#/Vol]o n 10-31-2024 Reticulocytes/100 RBC (Bld) 6.9 % High 0.4-2.0 [facility] Comment on above: Order Comment: Speci men Type: BLOOD SPECIMEN Ordering Facility: [facility] Address: [address] [place] [address] Performed By: #### 5 8410-2 #### [facility] CLIA [id number] [address] [place] [address] [place] TSH SerPl-aCncon 10-31-2024 TSH Qn 1.110 m[IU]/L Normal 0.270-4.20 0 [facility] Comment on above: Order Comment: Speci men Type: BLOOD SPECIMEN Ordering Facility: [facility] Address: [address] [place] [address] Performed By: #### 5 8410-2 #### [facility] CLIA [id number] [address] [place] [address] [place] TYPE + SCREENon 10-31-2024 ABO A Normal [facility] Comment on above: Order Comment: Speci men Type: BLOOD SPECIMENOrdering Facility: [facility] Address: [address] [place] [address] Performed By: #### T SCR ####[facility] [id number] [address] [place] Rh Nom (Bld) Positive Normal [facility] Comment on above: Order Comment: Speci men Type: BLOOD SPECIMENOrdering Facility: [facility] Address: [address] [place] [address] Performed By: #### T SCR ####[facility] [id number] [address] STATES OF [facility] TYPE AND SCREEN EXPIRATION 11/03/2024 23:59 Normal [facility] Comment on above: Order Comment: Speci men Type: BLOOD SPECIMENOrdering Facility: [facility] Address: [address] [place] [address] Performed By: #### T SCR ####[facility] [id number] [address] [place] Urinalysis complete panel (U )on 10-31-2024 Bilirubin Ql (U) Negative Normal Negative [facility] Comment on above: Order Comment: Speci men Type: URINE SPECIMEN Ordering Facility: [facility] Address: [address] [place] [address] Performed By: #### 2 4356-8 #### [facility] CLIA [id number] [address] [place] [address] [place] Clarity (Unsp spec) Clear Normal Clear [facility] Comment on above: Order Comment: Speci men Type: URINE SPECIMEN Ordering Facility: [facility] Address: [address] [place] [address] Performed By: #### 2 4356-8 #### [facility] CLIA [id number] [address] [place] [address] [place] Color (U) Light Yellow Normal Yellow [facility] Comment on above: Order Comment: Speci men Type: URINE SPECIMEN Ordering Facility: [facility] Address: [address] [place] [address] Performed By: #### 2 4356-8 #### [facility] CLIA [id number] [address] [place] [address] [place] Glucose Test strip (U) [Mass/Vol] Negative Normal Trace, Negative [facility] Comment on above: Order Comment: Speci men Type: URINE SPECIMEN Ordering Facility: [facility] Address: [address] [place] [address] Performed By: #### 2 4356-8 #### [facility] CLIA [id number] [place] [address] [place] Hemoglobin Ql (U) Negative Normal Negative, Trace [facility] Comment on above: Order Comment: Speci men Type: URINE SPECIMEN Ordering Facility: [facility] Address: [address] [place] [address] Performed By: #### 2 4356-8 #### [facility] CLIA [id number] [address] [place] [address] [place] Ketones Ql (U) Negative Normal Negative, Trace [facility] Comment on above: Order Comment: Speci men Type: URINE SPECIMEN Ordering Facility: [facility] Address: [address] [place] [address] Performed By: #### 2 4356-8 #### [facility] CLIA [id number] [address] [place] [address] [place] Leukocyte esterase Test strip Ql (U) Negative Normal Negative, 25 Angle/uL [facility] Comment on above: Order Comment: Speci men Type: URINE SPECIMEN Ordering Facility: [facility] Address: [address] [place] [address] Performed By: #### 2 4356-8 #### [facility] CLIA [id number] [place] [address] [place] Nitrite Ql (U) Negative Normal Negative [facility] Comment on above: Order Comment: Speci men Type: URINE SPECIMEN Ordering Facility: [facility] Address: [address] [place] [address] Performed By: #### 2 4356-8 #### [facility] CLIA [id number] [address] [place] [address] [place] pH (U) 5.5 [pH] Normal 5.0-8.0 [facility] Comment on above: Order Comment: Speci men Type: URINE SPECIMEN Ordering Facility: [facility] Address: [address] [place] [address] Performed By: #### 2 4356-8 #### [facility] CLIA [id number] [address] [place] [address] [place] Protein (U) [Mass/Vol] Negative Normal Trace , Negative [facility] Comment on above: Order Comment: Speci men Type: URINE SPECIMEN Ordering Facility: [facility] Address: [address] [place] [address] Performed By: #### 2 4356-8 #### [facility] CLIA [id number] [address] [place] [address] [place] RBC LM.HPF (Urine sed) [#/Area] 0-3 /HPF Normal 0-3 /HPF [facility] Comment on above: Order Comment: Speci men Type: URINE SPECIMEN Ordering Facility: [facility] Address: [address] [place] [address] Performed By: #### 2 4356-8 #### [facility] CLIA [id number] [address] [place] [address] [place] Specific gravity (U) [Rel density] 1.011 Normal 1.005-1.03 0 [facility] Comment on above: Order Comment: Speci men Type: URINE SPECIMEN Ordering Facility: [facility] Address: [address] [place] [address] Performed By: #### 2 4356-8 #### [facility] CLIA [id number] [address] [place] [address] [place] Urobilinogen Ql (U) Normal Normal Normal [facility] Comment on above: Order Comment: Speci men Type: URINE SPECIMEN Ordering Facility: [facility] Address: [address] [place] [address] Performed By: #### 2 4356-8 #### [facility] CLIA [id number] [address] [place] [address] [place] WBC LM.HPF (Urine sed) [#/Area] 0-5 /HPF Normal 0-5 /HPF [facility] Comment on above: Order Comment: Speci men Type: URINE SPECIMEN Ordering Facility: [facility] Address: [address] [place] [address] Performed By: #### 2 4356-8 #### [facility] CLIA [id number] [address] [place] [address] [place] ALBUMIN, RANDOM URINE W/CREA TININEon 10-29-2024 ALBUMIN, URINE 11.0 mg/dL Normal See Note: [facility] Comment on above: Result Comment: Refe nita Range: Reference Range Not established Performed By: #### 6 517, 7600 #### [facility] [address], [address] [place] [address] Compress Trucker: Rene Grewal MD ALBUMIN/CREATININE RATIO, RANDOM URINE 87 mg/g creat High <30 [facility] Comment on above: Result Comment: The ADA defines abnormalities in albumin excretion as follows: Albuminuria Category Result (mg/g creatinine) Normal to Mildly increased <30 Moderately increased 30-299 Severely increased > OR = 300 The ADA recommends that at least two of three specimens collected within a 3-6 month period be abnormal before considering a patient to be within a diagnostic category. Performed By: #### 6 517, 7600 #### [facility] [address], [address] [place] [address] Compress Trucker: Rene Grewal MD Creatinine (U) [Mass/Vol] 127 mg/dL Normal 20-320 [facility] Comment on above: Performed By: #### 6 517, 7600 #### [facility] [address], [address] [place] [address] Compress Trucker: Rene Grewal MD LIPID PANEL, [facility] Cholesterol [Mass/Vol] 158 mg/dL Normal <200 [facility] Comment on above: Order Comment: FASTI NG:YES FASTING: YES Performed By: #### 6 517, 7600 #### [facility] [address], [address] [place] [address] Compress Trucker: Rene Grewal MD Cholesterol in HDL [Mass/Vol] 99 mg/dL Normal > OR = 40 [facility] Comment on above: Order Comment: FASTI NG:YES FASTING: YES Performed By: #### 6 328, 5060 #### [facility] [address], [address] [place] [address] Compress Trucker: Rene Grewal MD Cholesterol in LDL [Mass/Vol] 46 mg/dL Normal [facility] Comment on above: Order Comment: FASTI NG:YES FASTING: YES Result Comment: Refe rence range: <100 Desirable range <100 mg/dL for primary prevention; <70 mg/dL for patients with CHD or diabetic patients with > or = 2 CHD risk factors. LDL-C is now calculated using the Arnel calculation, which is a validated novel method providing better accuracy than the Friedewald equation in the estimation of LDL-C. Issac JOHNSON et al. FERNANDO. 2013;310(19): 6847-5417 ([email or web address]) Performed By: #### 6 949, 4880 #### [facility] [address], [address] [place] [address] Compress Trucker: Rene Grewal MD Cholesterol.total/Kimberly sterol in HDL [Mass ratio] 1.6 {ratio} Normal <5.0 [facility] Comment on above: Order Comment: FASTI NG:YES FASTING: YES Performed By: #### 6 739, 1870 #### [facility] [address], [address] [place] [address] Compress Trucker: Rene Grewal MD NON HDL CHOLESTEROL 59 mg/dL (calc) Normal <130 [facility] Comment on above: Order Comment: FASTI NG:YES FASTING: YES Result Comment: For patients with diabetes plus 1 major ASCVD risk factor, treating to a non-HDL-C goal of <100 mg/dL (LDL-C of <70 mg/dL) is considered a therapeutic option. Performed By: #### 6 692, 2600 #### [facility] [address], [address] [place] [address] Compress Trucker: Rene Grewal MD Triglyceride [Mass/Vol] 51 mg/dL Normal <150 [facility] Comment on above: Order Comment: FASTI NG:YES FASTING: YES Performed By: #### 6 006, 0434 #### [facility] [address] [place], [place] [address] Rd, [address] [place] [address] Compress Trucker: eRne Grewal MD Alanine aminotransferase [En zymatic activity/volume] in Serum or PlasmaOrdered By: Marily Romero on 10-28-2024 ALT [Catalytic activity/Vol] Alanine aminotransferase [Enzymatic activity/volume] in Serum or Plasma [facility] Albumin [Mass/volume] in Ser um or Plasma by Bromocresol green (BCG) dye binding methoOrdered By: Marily Romero on 10-28-2024 Albumin BCG dye [Mass/Vol] Albumin [Mass/volume] in Serum or Plasma by Bromocresol green (BCG) dye binding metho 3.5-5.7 [facility] Alkaline phosphatase [Enzyma tic activity/volume] in Serum or PlasmaOrdered By: Marily Romero on 10-28-2024 ALP [Catalytic activity/Vol] Alkaline phosphatase [Enzymatic activity/volume] in Serum or Plasma 34-104 [facility] Ammoniaon 10-28-2024 Ammonia (P) [Moles/Vol] 34 umol/L Normal 11-35 [facility] Comment on above: Result Comment: PERF ORMED BY: [place] [address] PATHOLOGIST [employer]PL[employer] FLIGHT ATTENDANT KAYE NUNEZ M.D. Performed By: #### C #### [address] Ammonia [Moles/volume] in Pl asmaOrdered By: Darrius Brown on 10-28-2024 Ammonia (P) [Moles/Vol] Ammonia [Moles/v olume] in Plasma 11-35 [facility] Amylaseon 10-28-2024 Amylase [Catalytic activity/Vol] 33 U/L Normal 29-103 [facility] Comment on above: Performed By: #### P TT, XIN, MG, CMP, PT, LIPASE #### [facility] [address] Amylase [Enzymatic activity/ volume] in Serum or PlasmaOrdered By: Darrius Brown on 10-28-2024 Amylase [Catalytic activity/Vol] Amylase [Enzymatic activity/volume] in Serum [place] Plasma [address] [facility] Appearance of UrineOrdered B y: Marily Romero on 10-28-2024 Appearance (U) Urine appearance Clear [facility] Aspartate aminotransferase [ Enzymatic activity/volume] in Serum or PlasmaOrdered By: Marily Romero on 10-28-2024 AST [Catalytic activity/Vol] Aspartate aminotransferase [Enzymatic activity/volume] in Serum or Plasma 13-39 [facility] Basophils Auto (Bld) [#/Vol] Ordered By: Marily Romero on 10-28-2024 Basophils (Bld) [#/Vol] Automated basophil count 0.0-0.2 [facility] Basophils/100 WBC Auto (Bld) Ordered By: Marily Romero on 10-28-2024 Basophils/100 WBC (Bld) Automated basophil % . [facility] Bilirubin Test strip Ql (U)O rdered By: Marily Romero on 10-28-2024 Bilirubin Ql (U) Bilirubin.total [Presence] in Urine by Test strip Negative [facility] Bilirubin.total [Mass/volume ] in Serum or PlasmaOrdered By: Marily Romero on 10-28-2024 Bilirubin [Mass/Vol] Bilirubin.total [Mass/volume] in Serum or Plasma 0.3-1.[address] [facility] [address] abdomen pelvis w conon CT abdomen pelvis w con [facility] [place] [address] [place] [address] CT Scan Report Signed Patient: Aisha Julien MR#: [id number] 79 : 1955 Acct:[id number] Age/Sex: 69 / M ADM Date: 10/28/24 Loc: ER Room: Type: [facility] ER Attending Dr: Copies to: Do Darrius Ramos MD, RES Ordering Provider: Darrius Brown MD, RES Date of Service: 10/28/24 CT/CT abdomen pelvis w con: GI bleed ([id number]) CT/CT chest w con: cough, black emesis CT CHEST, ABDOMEN AND PELVIS WITH INTRAVENOUS CONTRAST: CLINICAL HISTORY: Cough and dark emesis. History of duodenal surgery. COMPARISON: CT abdomen 07/24/2023 and 06/06/2021 TECHNIQUE: Spiral images were obtained through the chest, abdomen and pelvis following intravenous administration of 90 mL of Isovue 300. Images of the chest were reviewed using both narrow and wide window settings. This CT exam was performed using one or more following dose reduction techniques: Automated exposure control, adjustment of the mA and/or kV according to patient size, or use of iterative reconstruction technique. The heart is not enlarged. There is no pericardial effusion. No aortic aneurysm or dissection is seen. There is no mediastinal or hilar lymphadenopathy. There is minor gynecomastia. Old right rib fractures are present. There are some mild degenerative changes at the spine. There is an irregular opacity at the left apex measuring around 2 cm in size. There are areas of linear atelectasis and/or scarring bilaterally. There is no additional consolidation, pleural effusion or pneumothorax. No calcified gallstones are identified. Fatty infiltration of the liver is suspected. There is a subtle hepatic hypodensity small hepatic hypodensities are again seen, potentially hemangioma is . The spleen, pancreas and adrenal glands show no acute findings. There is possible slight delay in the left renal nephrogram though no evidence of hydronephrosis. No renal or ureteral stones are identified. The abdominal aorta is normal caliber and there is minor atherosclerotic plaque. A new vertical midline surgical incision is suggested. There are continued scattered abdominal lymph nodes, largest at the root of mesentery. Stranding is again seen within the mesentery. There is mild fluid within the stomach and duodenum. The small bowel loops are within normal limits for caliber. The colon is decompressed and there are segments of apparent wall thickening. No appendiceal inflammation is present. There is a tiny umbilical hernia containing fat. Slight levoscoliotic curvature and degenerative changes are again seen within the spine. Images through the pelvis show no dilated small bowel loops. There is air and a small amount of stool at the distal colon. No diverticular disease is seen. There is additional mild stranding within the pelvic mesentery. No additional adenopathy is seen. There is no ascites. The prostate is slightly prominent and contains calcification. The urinary bladder wall is borderline thickened for the degree of distention. A lipoma is noted along the superficial margin of the right gluteus muscle. There is some stranding within the subcutaneous fat at the right mid back about the site. CT/CT chest w con IMPRESSION: IRREGULAR LEFT APICAL OPACITY. SINCE THERE ARE NO COMPARISONS, CLINICAL CORRELATION AND FOLLOW-UP WILL BE NEEDED. ALTHOUGH IT COULD BE INFECTIOUS OR INFLAMMATORY, NEOPLASM IS NOT EXCLUDED ON THE BASIS OF THIS EXAM. SCARRING AND/OR ATELECTASIS. FATTY LIVER WITH SUSPECTED HEMANGIOMAS. CONTINUED ABDOMINAL LYMPHADENOPATHY AND STRANDING WITHIN THE MESENTERY. THERE APPEARS TO BE INTERVAL SURGERY AND CORRELATION WITH DETAILS OF THE PROCEDURE AND FINDINGS IS RECOMMENDED. NO BOWEL OR URINARY TRACT OBSTRUCTION. CONTINUED BORDERLINE THICKENING OF THE URINARY BLADDER WALL. Impression dictated by: Génesis West M.D.10/28/2024 3:32 PM Dictation Location: [place] [address] Transcribed By: MAXIMO 10/28/24 1532 Dictated By: Génesis West MD 10/28/24 1507 Signed By: 10/28/24 1532 Normal [facility] Calcium [Mass/volume] in Ser um or PlasmaOrdered By: Marily Romero on 10-28-2024 Calcium [Mass/Vol] Calcium [Mass/volume ] in Serum or Plasma Low 8.6-10.3 [facility] Carbon dioxide, total [Moles /volume] in Serum or PlasmaOrdered By: Marily Romero on 10-28-2024 CO2 [Moles/Vol] Carbon dioxide, tota l [Moles/volume] in Serum or Plasma 21.0-31.0 [facility] Chloride [Moles/volume] in S sadi or PlasmaOrdered By: Marily Romero on 10-28-2024 Chloride [Moles/Vol] Chloride [Moles/vol ume] in Serum or Plasma High 98-107 [facility] Color Auto (U)Ordered By: Ian Romero on 10-28-2024 Color (U) Color of Urine by Auto [facility] Blood Count Auto Di ffon 10-28-2024 Basophils (Bld) [#/Vol] 0.0 10*3/uL Normal 0.0-0.2 [facility] Comment on above: Result Comment: PERF ORMED BY: [place] [address] PATHOLOGIST [employer]PL[employer] FLIGHT ATTENDANT KAYE NUNEZ M.D. Performed By: #### C BC #### [address] Basophils/100 WBC (Bld) 0.6 % Normal . [facility] Comment on above: Performed By: #### C BC #### [address] Eosinophils (Bld) [#/Vol] 0.1 10*3/uL Normal 0.0-0.45 [facility] Comment on above: Performed By: #### C BC #### [address] Eosinophils/100 WBC (Bld) 0.8 % Normal . [facility] Comment on above: Performed By: #### C BC #### [address] Erythrocyte distribution width (RBC) [Ratio] 13.8 % Normal 12.0-14.8 [facility] Comment on above: Performed By: #### C BC #### [address] Hematocrit (Bld) [Volume fraction] 24.3 % Low 38.8-50.0 [facility] Comment on above: Performed By: #### C BC #### [address] Hemoglobin (Bld) [Mass/Vol] 8.2 g/dL Low 13.0-17.0 [facility] Comment on above: Performed By: #### C BC #### [address] Lymphocytes (Bld) [#/Vol] 0.5 10*3/uL Low 1.00-4.8 [facility] Comment on above: Performed By: #### C BC #### [address] Lymphocytes/100 WBC (Bld) 6.9 % Normal . [facility] Comment on above: Performed By: #### C BC #### [address] MCH (RBC) [Entitic mass] 31.3 pg Normal 27.5-35.2 [facility] Comment on above: Performed By: #### C BC #### [address] MCV (RBC) [Entitic vol] 93.1 fL Normal 83.5-101 [facility] Comment on above: Performed By: #### C BC #### [address] Mean Corpuscular HGB Conc 33.6 g/dL Normal 32.5-35.6 [facility] Comment on above: Performed By: #### C BC #### [address] Monocytes (Bld) [#/Vol] 0.9 10*3/uL High 0.0-0.8 [facility] Comment on above: Performed By: #### C BC #### [address] Monocytes/100 WBC (Bld) 17.29 % Normal 0.00-20.00 [facility] Comment on above: Performed By: #### C BC #### [address] Monocytes/100 WBC (Bld) 11.6 % Normal . [facility] Comment on above: Performed By: #### C BC #### [address] Neutrophils (Bld) [#/Vol] 6.1 10*3/uL Normal 1.8-7.7 [facility] Comment on above: Performed By: #### C BC #### [place] [address] [place] Neutrophils/100 WBC (Bld) 80.1 % Normal . [facility] Comment on above: Performed By: #### C BC #### [address] NRBC% 0.0 /100{WBC} Normal 0-0.5 [facility] Comment on above: Performed By: #### C BC #### [address] Platelet mean volume (Bld) [Entitic vol] 9.1 fL Normal 6.6-10.1 [facility] Comment on above: Performed By: #### C BC #### [address] Platelets (Bld) [#/Vol] 182 10*3/uL Normal 150-450 [facility] Comment on above: Performed By: #### C BC #### [address] RBC (Bld) [#/Vol] 2.61 10*6/uL Low 3.90-5.60 [facility] Comment on above: Performed By: #### C BC #### [address] WBC (Bld) [#/Vol] 7.6 10*3/uL Normal 4.1-10.5 [facility] Comment on above: Performed By: #### C BC #### [address] Comprehensive Metabolic Pane jefry 10-28-2024 Albumin [Mass/Vol] 3.6 g/dL Normal 3.5-5.7 [facility] Comment on above: Performed By: #### P TT, XIN, MG, CMP, PT, LIPASE #### [address] Albumin/Globulin [Mass ratio] 1.5 {ratio} Normal [facility] Comment on above: Performed By: #### P TT, XIN, MG, CMP, PT, LIPASE #### [address] ALP [Catalytic activity/Vol] 98 U/L Normal 34-104 [facility] Comment on above: Performed By: #### P TT, XIN, MG, CMP, PT, LIPASE #### [address] ALT [Catalytic activity/Vol] 13 U/L Normal 7-52 [facility] Comment on above: Performed By: #### P TT, XIN, MG, CMP, PT, LIPASE #### [address] Anion gap [Moles/Vol] 1.4 mmol/L Low 6.0-15.0 [facility] Comment on above: Performed By: #### P TT, XIN, MG, CMP, PT, LIPASE #### [address] AST [Catalytic activity/Vol] 23 U/L Normal 13-39 [facility] Comment on above: Performed By: #### P TT, XIN, MG, CMP, PT, LIPASE #### [address] Bilirubin [Mass/Vol] 0.7 mg/dL Normal 0.3-1.0 [facility] Comment on above: Performed By: #### P TT, XIN, MG, CMP, PT, LIPASE #### [address] Calcium [Mass/Vol] 8.1 mg/dL Low 8.6-10.3 [facility] Comment on above: Performed By: #### P TT, XIN, MG, CMP, PT, LIPASE #### [place] [address] [place] Chloride [Moles/Vol] 112 mmol/L High 98-107 [facility] Comment on above: Performed By: #### P TT, XIN, MG, CMP, PT, LIPASE #### [address] CO2 [Moles/Vol] 22.7 mmol/L Normal 21.0-31.0 [facility] Comment on above: Performed By: #### P TT, XIN, MG, CMP, PT, LIPASE #### [address] Creatinine [Mass/Vol] 1.11 mg/dL Normal 0.70-1.30 [facility] Comment on above: Performed By: #### P TT, XIN, MG, CMP, PT, LIPASE #### [address] Creatinine Clr Calc Pharmacy 62.81 Normal [facility] Comment on above: Performed By: #### P TT, XIN, MG, CMP, PT, LIPASE #### [address] GFR/1.73 sq M.predicted MDRD (S/P/Bld) [Vol rate/Area] mL/min/{1.73_m2} Normal [facility] Comment on above: Performed By: #### P TT, XIN, MG, CMP, PT, LIPASE #### [address] Globulin (S) [Mass/Vol] 2.4 g/dL Normal [facility] Comment on above: Performed By: #### P TT, XIN, MG, CMP, PT, LIPASE #### [address] Glucose [Mass/Vol] 109 mg/dL High 70-100 [facility] Comment on above: Result Comment: [facility] Glucose Reference Range is dependent on time and content of last meal. Glucose of more than 200 mg/dL in a nonstressed, ambulatory subject supports the diagnosis of Diabetes Mellitus. ADA recommended reference range Performed By: #### P TT, XIN, MG, CMP, PT, LIPASE #### [address] Potassium [Moles/Vol] 4.1 mmol/L Normal 3.5-5.1 [facility] Comment on above: Performed By: #### P TT, XIN, MG, CMP, PT, LIPASE #### [address] [place] [address] [place] Protein [Mass/Vol] 6.0 g/dL Low 6.4-8.9 [facility] Comment on above: Performed By: #### P TT, XIN, MG, CMP, PT, LIPASE #### [address] Sodium [Moles/Vol] 132 mmol/L Low 136-145 [facility] Comment on above: Performed By: #### P TT, XIN, MG, CMP, PT, LIPASE #### [address] Urea nitrogen [Mass/Vol] 30 mg/dL High 7-25 [facility] Comment on above: Performed By: #### P TT, XIN, MG, CMP, PT, LIPASE #### [address] Creatinine [Mass/volume] in Serum or PlasmaOrdered By: Marily Romero on 10-28-2024 Creatinine [Mass/Vol] Creatinine [Mass/v olume] in Serum or Plasma 0.70-1.30 [facility] ECG 12 lead ECGon 10-28-2024 ECG 12 lead ECG [facility] [place] [address] [place] [address] Electrocardiograph Report Signed Patient: Aisha Julien MR#: [id number] 79 : 1955 Acct:[id number] Age/Sex: 69 / M ADM Date: 10/28/24 Loc: ER Room: Type: [facility] ER Attending Dr: Ordering Provider: Marily Romero Do Date of Service: 10/28/2402/17/1208 ECG/ECG 12 lead ECG: Vomiting Blood Copies to: Test Reason : Blood Pressure : 138/63 mmHG Vent. Rate : 75 BPM Atrial Rate : 75 BPM P-R Int : 154 ms QRS Dur : 94 ms QT Int : 376 ms P-R-T Axes : 54 72 14 degrees QTcB Int : 419 ms Confirmed by Marily Romero ([id number]) on 10/28/2024 2:04:53 PM Referred By: Electronically Signed By: Marily Romero Transcribed By: MUS Signed By Marily Romero Do 5 1404 Normal [facility] Eosinophils Auto (Bld) [#/Vo l]Ordered By: Marily Romero on 10-28-2024 Eosinophils (Bld) [#/Vol] Automated eosinophil count 0.0-0.45 [facility] Eosinophils/100 WBC Auto (Bl d)Ordered By: Marily Romero on 10-28-2024 Eosinophils/100 WBC (Bld) Automated eosinophil % . [facility] Erythrocyte distribution wid th Auto (RBC) [Ratio]Ordered By: Marily Romero on 10-28-2024 Erythrocyte distribution width (RBC) [Ratio] Erythrocyte distribution width [Ratio] by Automated count 12.0-14.8 [facility] Globulin Calc (S) [Mass/Vol] Ordered By: Marily Romero 10-28-2024 Globulin (S) [Mass/Vol] Serum globulin measurement by calculation (mass/volume) [facility] Glucose [Mass/volume] in Ser um or PlasmaOrdered By: Marily Romero 10-28-2024 Glucose [Mass/Vol] Glucose [Mass/volume ] in Serum or Plasma High 70-100 [facility] Comment on above: ADA recommended refe rence rangeRandom Glucose Reference Range is dependent on time and content of last meal. Glucose of more than 200 mg/dL in a nonstressed, ambulatory subject supports the diagnosis of Diabetes Mellitus. Glucose [Mass/volume] in Uri ne by Test stripOrdered By: Marily Romero 10-28-2024 Glucose Test strip (U) [Mass/Vol] Glucose [Mass/volume] in Urine by Test strip Normal [facility] Hematocrit Auto (Bld) [Volum e fraction]Ordered By: Marily Romero 10-28-2024 Hematocrit (Bld) [Volume fraction] Hematocrit [Volume Fraction] of Blood by Automated count Low 38.8-50.0 [facility] Hemoglobin Test strip Ql (U) Ordered By: Marily Romero 10-28-2024 Hemoglobin Ql (U) Hemoglobin [Presence ] in Urine by Test strip Negative [facility] Hemoglobin [Mass/volume] in BloodOrdered By: Marily Romero 10-28-2024 Hemoglobin (Bld) [Mass/Vol] Hemoglobin [Mass/volume] in Blood Low 13.0-17.0 [facility] INR in Platelet poor plasma by Coagulation assayOrdered By: Marily Romero on 10-28-2024 INR Coag (PPP) [Relative time] INR in Platelet poor plasma by Coagulation assay [facility] Comment on above: INR Therapeutic [...] mechanical heart valves: 3 - 4.5 Ketones Test strip Ql (U)Ord ered By: Marily Romero on 10-28-2024 Ketones Ql (U) Ketones [Presence] i n Urine by Test strip High Negative [facility] Leukocyte esterase [Presence ] in Urine by Test stripOrdered By: Marily Romero on 10-28-2024 Leukocyte esterase Test strip Ql (U) Leukocyte esterase [Presence] in Urine by Test strip Negative [facility] Leukocytes [#/volume] correc johnnie for nucleated erythrocytes in Blood by Automated counOrdered By: Marily Romero on 10-28-2024 WBC corrected for nucl RBC Auto (Bld) [#/Vol] Leukocytes [#/volume] corrected for nucleated erythrocytes in Blood by Automated coun 4.1-10.5 [facility] Lipaseon 10-28-2024 Lipase [Catalytic activity/Vol] 68.0 U/L Normal 11.0-82.0 [facility] Comment on above: Result Comment: PERF ORMED BY: [place] [address] PATHOLOGIST [employer] ATTENDANT KAYE NUNEZ M.D. Performed By: #### P TT, XIN, MG, CMP, PT, LIPASE #### [address] Lipase [Enzymatic activity/v olume] in Serum or PlasmaOrdered By: Marily Romero on 10-28-2024 Lipase [Catalytic activity/Vol] Lipase [Enzymatic activity/volume] in Serum or Plasma 11.0-82.0 [facility] Lymphocytes Auto (Bld) [#/Vo l]Ordered By: Marily Romero on 10-28-2024 Lymphocytes (Bld) [#/Vol] Lymphocytes [#/volume] in Blood by Automated count Low 1.00-4.8 [facility] Lymphocytes/100 WBC Auto (Bl d)Ordered By: Marily Romero on 10-28-2024 Lymphocytes/100 WBC (Bld) Lymphocytes/100 leukocytes in Blood by Automated count . [facility] MCH Auto (RBC) [Entitic mass ]Ordered By: Marily Romero on 10-28-2024 MCH (RBC) [Entitic mass] MCH [Entitic mass] by Automated count 27.5-35.2 [facility] MCHC Auto (RBC) [Mass/Vol]Or dered By: Marily Romero on 10-28-2024 MCHC (RBC) [Mass/Vol] MCHC [Mass/volume] by Automated count 32.5-35.6 [facility] MCV Auto (RBC) [Entitic vol] Ordered By: Marily Romero on 10-28-2024 MCV (RBC) [Entitic vol] MCV [Entitic vol ume] by Automated count 83.5-101 [facility] Magnesiumon 10-28-2024 Magnesium [Mass/Vol] 1.8 mg/dL Low 1.9-2.7 [facility] Comment on above: Performed By: #### P TT, XIN, MG, CMP, PT, LIPASE #### [address] Magnesium [Mass/volume] in S sadi or PlasmaOrdered By: Darrius Brown on 10-28-2024 Magnesium [Mass/Vol] Magnesium [Mass/vol ume] in Serum or Plasma Low 1.9-2.7 [facility] Monocyte distribution width [Entitic volume] in Blood by AutomatedOrdered By: Marily Romero on 10-28-2024 Monocyte distribution width Auto (Bld) [Entitic vol] Monocyte distribution width [Entitic volume] in Blood by Automated 0.00-20.00 [facility] Monocytes Auto (Bld) [#/Vol] Ordered By: Marily Romero on 10-28-2024 Monocytes (Bld) [#/Vol] Automated blood monocyte count High 0.0-0.8 [facility] Monocytes/100 WBC Auto (Bld) Ordered By: Marily Romero on 10-28-2024 Monocytes/100 WBC (Bld) Automated monocyte % . [facility] Neutrophils Auto (Bld) [#/Vo l]Ordered By: Marily Romero on 10-28-2024 Neutrophils (Bld) [#/Vol] Neutrophils [#/volume] in Blood by Automated count 1.8-7.7 [facility] Neutrophils/100 WBC Auto (Bl d)Ordered By: Marily Romero on 10-28-2024 Neutrophils/100 WBC (Bld) Automated neutrophil % . [facility] Nitrite Test strip Ql (U)Ord ered By: Marily Romero on 10-28-2024 Nitrite Ql (U) Nitrite [Presence] i n Urine by Test strip Negative [facility] No Panel InformationOrdered By: Marily Romero on 10-28-2024 Estimated GFR (CKD-EPI) > 60.0 mL/Min [facility] Creatinine Clearance (Chem 62.81 [facility] Nucleated erythrocytes [Pres ence] in Blood by Automated countOrdered By: Marily Romero on 10-28-2024 Nucleated RBC Auto Ql (Bld) Nucleated erythrocytes [Presence] in Blood by Automated count 0-0.5 [facility] Partial Thromboplastin Timeo n 10-28-2024 aPTT Coag (Bld) [Time] 26.2 s Normal 25.1-36.5 [facility] Comment on above: Result Comment: A he matocrit value greater than 55% may lead to inaccurate results in coagulation testing. Patients having hematocrit values >55% require a special collection tube for coagulation studies. Please contact the laboratory at [phone] for redraw instructions. PERFORMED BY: [address] [address] PATHOLOGIST [employer] ATTENDANT KAYE NUNEZ M.D. Performed By: #### P TT, XIN, MG, CMP, PT, LIPASE #### [address] [address] [facility] Platelet mean volume Auto (B ld) [Entitic vol]Ordered By: Marily Romero on 10-28-2024 Platelet mean volume (Bld) [Entitic vol] Platelet mean volume [Entitic volume] in Blood by Automated count 6.6-10.1 [facility] Platelets Auto (Bld) [#/Vol] Ordered By: Marily Romero on 10-28-2024 Platelets (Bld) [#/Vol] Platelets [#/vol ume] in Blood by Automated count 150-450 [facility] Potassium [Moles/volume] in Serum or PlasmaOrdered By: Marily Romero on 10-28-2024 Potassium [Moles/Vol] Potassium [Moles/v olume] in Serum or Plasma 3.5-5.1 [facility] Protein Test strip (U) [Mass /Vol]Ordered By: Marily Romero on 10-28-2024 Protein (U) [Mass/Vol] Protein [Mass/vol ume] in Urine by Test strip Negative [facility] Protein [Mass/volume] in Ser um or PlasmaOrdered By: Marily Romero on 10-28-2024 Protein [Mass/Vol] Protein [Mass/volume ] in Serum or Plasma Low 6.4-8.9 [facility] Prothrombin Time INRon 10-28 INR Coag (PPP) [Relative time] 1.0 {INR} Normal [facility] Comment on above: Result Comment: INR Therapeutic [...] - 4.5 Performed By: #### P TT, XIN, MG, CMP, PT, LIPASE #### [address] PT Coag (PPP) [Time] 11.6 s Normal 9.0-12.9 [facility] Comment on above: Result Comment: A he matocrit value greater than 55% may lead to inaccurate results in coagulation testing. Patients having hematocrit values >55% require a special collection tube for coagulation studies. Please contact the laboratory at [phone] for redraw instructions. Performed By: #### P TT, XIN, MG, CMP, PT, LIPASE #### [facility] [address] Prothrombin time (PT)Ordered By: Marily Romero on 10-28-2024 PT Coag (PPP) [Time] Prothrombin time (PT) 9.0- 12.9 [facility] Comment on above: A hematocrit value g reater than 55% may lead to inaccurate results in coagulation testing. Patients having hematocrit values >55% require a special collection tube for coagulation studies. Please contact the laboratory at [phone] for redraw instructions. RBC Auto (Bld) [#/Vol]Ordere d By: Marily Romero on 10-28-2024 RBC (Bld) [#/Vol] Erythrocytes [#/volu me] in Blood by Automated count Low 3.90-5.60 [facility] Serum or plasma albumin/glob ulin mass ratioOrdered By: Marily Romero on 10-28-2024 Albumin/Globulin [Mass ratio] Serum or plasma albumin/globulin mass ratio [facility] Serum or plasma anion gap de terminationOrdered By: Marily Romero on 10-28-2024 Anion gap [Moles/Vol] Serum or plasma an ion gap determination Low 6.0-15.0 [facility] Sodium [Moles/volume] in Ser um or PlasmaOrdered By: Marily Romero on 10-28-2024 Sodium [Moles/Vol] Sodium [Moles/volume ] in Serum or Plasma Low 136-145 [facility] Specific gravity Test strip (U) [Rel density]Ordered By: Marily Romero on 10-28-2024 Specific gravity (U) [Rel density] Specific gravity of Urine by Test strip 1.001-1.03 0 [facility] Stool Occult Bl. Scr. (Guaia c)on 10-28-2024 Stool Occult Bl. Scr. (Guaiac) Comment Black/tarry Occult Blood Positive for Occult Blood by Guaiac Methodology ------ Reference range = Negative PERFORMED BY: [place] [address] PATHOLOGIST [employer]ENDANT KAYE NUNEZ M.D. Normal [facility] Comment on above: Performed By: #### O BS-GUAIAC #### [place] [address] [place] Type and Screenon 10-28-2024 ABO and Rh group Nom (Bld) Blood group A Rh(D) positive Normal [facility] Urea nitrogen [Mass/volume] in Serum or PlasmaOrdered By: Marily Romero on 10-28-2024 Urea nitrogen [Mass/Vol] Urea nitrogen [Mass/volume] in Serum or Plasma High 7-25 [facility] Urinalysison 10-28-2024 Appearance (U) Clear Normal Clear [facility] Comment on above: Order Comment: Name Collection Type:: Clean-Voided Midstream Performed By: #### C BC #### [place] [address] [place] Bilirubin,Urine Negative Normal Negative The [facility] Comment on above: Order Comment: Name Collection Type:: Clean-Voided Midstream Performed By: #### C BC #### [place] [address] [place] Color (U) Light-Yellow Normal Yellow The [facility] Comment on above: Order Comment: Name Collection Type:: Clean-Voided Midstream Performed By: #### C BC #### [place] [address] [place] Glucose Ql (U) Normal Normal Normal [facility] Comment on above: Order Comment: Name Collection Type:: Clean-Voided Midstream Performed By: #### C BC #### [place] [id number] [place] Ketones Ql (U) Trace High Negative The [facility] Comment on above: Order Comment: Name Collection Type:: Clean-Voided Midstream Performed By: #### C BC #### [address] [address] [place] Leukocyte esterase Test strip Ql (U) Negative Normal Negative [facility] Comment on above: Order Comment: Name Collection Type:: Clean-Voided Midstream Performed By: #### C BC #### [address] Nitrite,Urine Negative Normal Negative The [facility] Comment on above: Order Comment: Name Collection Type:: Clean-Voided Midstream Performed By: #### C BC #### [address] Occult Blood,Urine Negative Normal Negative The [facility] Comment on above: Order Comment: Name Collection Type:: Clean-Voided Midstream Result Comment: PERF ORMED BY: [place] [address] PATHOLOGIST [employer]PL[employer] FLIGHT ATTENDANT KAYE NUNEZ M.D. Performed By: #### C BC #### [address] pH (U) 5.0 [pH] Normal 5.0-9.0 [facility] Comment on above: Order Comment: Name Collection Type:: Clean-Voided Midstream Performed By: #### C BC #### [address] Protein,Urine Negative Normal Negative The [facility] Comment on above: Order Comment: Name Collection Type:: Clean-Voided Midstream Performed By: #### C BC #### [address] Specificy [place],Urine 1.020 Normal 1.00 1-1.03 0 [facility] Comment on above: Order Comment: Name Collection Type:: Clean-Voided Midstream Performed By: #### C BC #### [address] Urobilinogen,Urine Normal Normal Normal [facility] Comment on above: Order Comment: Name Collection Type:: Clean-Voided Midstream Performed By: #### C BC #### [address] [address] [facility] Urobilinogen Test strip (U) [Mass/Vol]Ordered By: Marily Romero on 10-28-2024 Urobilinogen (U) [Mass/Vol] Urobilinogen [Mass/volume] in Urine by Test strip Normal [facility] WBC Auto (Bld) [#/Vol]Ordere d By: Marily Romero on 10-28-2024 WBC (Bld) [#/Vol] Leukocytes [#/volume ] in Blood by Automated count 4.1-10.5 [facility] aPTT in Platelet poor plasma by Coagulation assayOrdered By: Marily Romero on 10-28-2024 aPTT Coag (PPP) [Time] Activated partial thromboplastin time (aPTT) in platelet poor plasma by coagulation a 25.1-36.5 [facility] Comment on above: A hematocrit value g reater than 55% may lead to inaccurate results in coagulation testing. Patients having hematocrit values >55% require a special collection tube for coagulation studies. Please contact the laboratory at [phone] for redraw instructions. pH Test strip (U)Ordered By: Marily Romero on 10-28-2024 pH (U) pH of Urine by Test strip 5.0-9.0 [facility] CNPNon 10-25-2024 CNPN Normal [facility] CBC W Auto Differential pane l (Bld)on 10-15-2024 Basophils (Bld) [#/Vol] 0.06 10*3/uL Normal <0.11 [facility] Comment on above: Order Comment: Speci men Type: BLOOD SPECIMENOrdering Facility: [facility] Address: [address] [place] [address] Performed By: #### 5 7021-8 ####[facility] LABCLIA [id number] [place] [address] Basophils/100 WBC (Bld) 1.2 % Normal C [facility] Comment on above: Order Comment: Speci men Type: BLOOD SPECIMENOrdering Facility: [facility] Address: [address] [place] [address] Performed By: #### 5 7021-8 ####[facility] LABCLIA [id number] [place] [address] Differential cell count method Nom (Bld) Auto Normal [facility] Comment on above: Order Comment: Speci men Type: BLOOD SPECIMENOrdering Facility: [facility] Address: [address] [place] [address] Performed By: #### 5 7021-8 ####[facility] LABCLIA [id number] [place] [address] Eosinophils (Bld) [#/Vol] 0.64 10*3/uL High <0.46 [facility] Comment on above: Order Comment: Speci men Type: BLOOD SPECIMENOrdering Facility: [facility] Address: [address] [place] [address] Performed By: #### 5 7021-8 ####[facility] LABCLIA [id number] [place] [address] Eosinophils/100 WBC (Bld) 12.9 % Normal [facility] Comment on above: Order Comment: Speci men Type: BLOOD SPECIMENOrdering Facility: [facility] Address: [address] [place] [address] Performed By: #### 5 7021-8 ####[facility] LABCLIA [id number] [place] [address] Erythrocyte distribution width (RBC) [Ratio] 13.2 % Normal 11.5-15.0 [facility] Comment on above: Order Comment: Speci men Type: BLOOD SPECIMENOrdering Facility: [facility] Address: [address] [place] [address] Performed By: #### 5 7021-8 ####[facility] LABIA [id number] [place] [address] Hematocrit (Bld) [Volume fraction] 37.7 % Low 39.0-51.0 [facility] Comment on above: Order Comment: Speci men Type: BLOOD SPECIMENOrdering Facility: [facility] Address: [address] [place] [address] Performed By: #### 5 7021-8 ####[facility] LABCLIA [id number] [place] [address] Hemoglobin (Bld) [Mass/Vol] 12.2 g/dL Low 13.0-17.0 [facility] Comment on above: Order Comment: Speci men Type: BLOOD SPECIMENOrdering Facility: [facility] Address: [address] [place] [address] Performed By: #### 5 7021-8 ####[facility] LABCLIA [id number] [place] [address] Immature granulocytes (Bld) [#/Vol] 10*3/uL Normal <0.10 [facility] Comment on above: Order Comment: Speci men Type: BLOOD SPECIMENOrdering Facility: [facility] Address: [address] [place] [address] Performed By: #### 5 7021-8 ####[facility] LABCLIA [id number] [place] [address] Immature granulocytes/100 WBC (Bld) 0.4 % Normal [facility] Comment on above: Order Comment: Speci men Type: BLOOD SPECIMENOrdering Facility: [facility] Address: [address] [place] [address] Performed By: #### 5 7021-8 ####[facility] LABCLIA [id number] [place] [address] Lymphocytes (Bld) [#/Vol] 0.73 10*3/uL Low 1.00-4.00 [facility] Comment on above: Order Comment: Speci men Type: BLOOD SPECIMENOrdering Facility: [facility] Address: [address] [place] [address] Performed By: #### 5 7021-8 ####[facility] LABCLIA [id number] [place] [address] Lymphocytes/100 WBC (Bld) 14.7 % Normal [facility] Comment on above: Order Comment: Speci men Type: BLOOD SPECIMENOrdering Facility: [facility] Address: [address] [place] [address] Performed By: #### 5 7021-8 ####[facility] LABCLIA [id number] [place] [address] MCH (RBC) [Entitic mass] 31.0 pg Normal 26.0-34.0 [facility] Comment on above: Order Comment: Speci men Type: BLOOD SPECIMENOrdering Facility: [facility] Address: [address] [place] [address] Performed By: #### 5 7021-8 ####[facility] LABCLIA [id number] [place] [address] MCHC (RBC) [Mass/Vol] 32.4 g/dL Normal 30.5-36.0 [facility] Comment on above: Order Comment: Speci men Type: BLOOD SPECIMENOrdering Facility: [facility] Address: [address] [place] [address] Performed By: #### 5 7021-8 ####[facility] LABCLIA [id number] [place] [address] MCV (RBC) [Entitic vol] 95.7 fL Normal 80.0-100.0 C [facility] Comment on above: Order Comment: Speci men Type: BLOOD SPECIMENOrdering Facility: [facility] Address: [address] [place] [address] Performed By: #### 5 7021-8 ####[facility] LABCLIA [id number] [place] [address] Monocytes (Bld) [#/Vol] 0.78 10*3/uL Normal <0.87 [facility] Comment on above: Order Comment: Speci men Type: BLOOD SPECIMENOrdering Facility: [facility] Address: [address] [place] [address] Performed By: #### 5 7021-8 ####[facility] LABCLIA [id number] [place] [address] Monocytes/100 WBC (Bld) 15.8 % Normal [facility] Comment on above: Order Comment: Speci men Type: BLOOD SPECIMENOrdering Facility: [facility] Address: [address] [place] [address] Performed By: #### 5 7021-8 ####[facility] LABCLIA [id number] [place] [address] Neutrophils (Bld) [#/Vol] 2.72 10*3/uL Normal 1.45-7.50 [facility] Comment on above: Order Comment: Speci men Type: BLOOD SPECIMENOrdering Facility: [facility] Address: [address] [place] [address] Performed By: #### 5 7021-8 ####[facility] LABCLIA [id number] [place] [address] Neutrophils/100 WBC (Bld) 55.0 % Normal [facility] Comment on above: Order Comment: Speci men Type: BLOOD SPECIMENOrdering Facility: [facility] Address: [address] [place] [address] Performed By: #### 5 7021-8 ####[facility] LABCLIA [id number] [place] [address] Nucleated RBC (Bld) [#/Vol] 10*3/uL Normal <0.01 [facility] Comment on above: Order Comment: Speci men Type: BLOOD SPECIMENOrdering Facility: [facility] Address: [address] [place] [address] Performed By: #### 5 7021-8 ####[facility] LABCLIA [id number] [place] [address] Nucleated RBC/100 WBC (Bld) [Ratio] 0.0 /100 WBC Normal [facility] Comment on above: Order Comment: Speci men Type: BLOOD SPECIMENOrdering Facility: [facility] Address: [address] [place] [address] Performed By: #### 5 7021-8 ####[facility] LABCLIA [id number] [place] [address] Platelet mean volume (Bld) [Entitic vol] 10.2 fL Normal 9.0-12.7 [facility] Comment on above: Order Comment: Speci men Type: BLOOD SPECIMENOrdering Facility: [facility] Address: [address] [place] [address] Performed By: #### 5 7021-8 ####[facility] LABCLIA [id number] [place] [address] Platelets (Bld) [#/Vol] 214 10*3/uL Normal 150-400 [facility] Comment on above: Order Comment: Speci men Type: BLOOD SPECIMENOrdering Facility: [facility] Address: [address] [place] [address] Performed By: #### 5 7021-8 ####[facility] LABCLIA [id number] [place] [address] RBC (Bld) [#/Vol] 3.94 10*6/uL Low 4.20-6.00 [facility] Comment on above: Order Comment: Speci men Type: BLOOD SPECIMENOrdering Facility: [facility] Address: [address] [place] [address] Performed By: #### 5 7021-8 ####[facility] LABCLIA [id number] [place] [address] WBC (Bld) [#/Vol] 4.95 10*3/uL Normal 3.70-11.00 [facility] Comment on above: Order Comment: Speci men Type: BLOOD SPECIMENOrdering Facility: [facility] Address: [address] [place] [address] Performed By: #### 5 7021-8 ####[facility] LABCLIA [id number] [place] [address] [facility] CBC W AUTO DIFF BLDon Basophils/100 WBC (Bld) 1.2 % [facility] BASOPHILS # BLD AUTO 0.06 [facility] DIFFERENTIAL METHOD BLD Auto [facility] EOSINOPHIL # BLD AUTO 0.64 High [facility] LYMPHOCYTES # BLD AUTO 0.73 Low [facility] MONOCYTES # BLD AUTO 0.78 [facility] NEUTROPHILS # BLD AUTO 2.72 [facility] NRBC # BLD AUTO <0.01 [facility] NRBC/100 WBC BLD-RTO 0 /100 WBC [facility] PLATELET # BLD AUTO 214 [address] [facility] PMV BLD AUTO 10.2 fL 9.0 - 12.7 fL [facility] WBC # BLD AUTO 4.95 [facility] Eosinophils/100 WBC (Bld) 12.9 % [facility] Erythrocyte distribution width (RBC) [Ratio] 13.2 % 11.5 - 15.0 % [facility] Hematocrit (Bld) [Volume fraction] 37.7 % Low 39.0 - 51.0 % [facility] Hemoglobin (Bld) [Mass/Vol] 12.2 g/dL Low 13.0 - 17.0 g/dL [facility] IMM GRANULOCYTES # BLD AUTO <0.03 [facility] IMM GRANULOCYTES/LEUK NFR BLD AUTO 0.4 % [facility] Interpretation and review of laboratory results Abnormal [facility] Lymphocytes/100 WBC (Bld) 14.7 % [facility] MCH (RBC) [Entitic mass] 31 pg 26.0 - 34.0 pg [facility] MCHC (RBC) [Mass/Vol] 32.4 g/dL 30.5 - 36.0 g/dL [facility] MCV (RBC) [Entitic vol] 95.7 fL 80.0 - 100.0 fL [facility] Monocytes/100 WBC (Bld) 15.8 % [facility] Neutrophils/100 WBC (Bld) 55 % [facility] RBC (Bld) [#/Vol] 3.94 10*6/uL Low 4.20 - 6.00 m/uL [facility] Specimen Type: BLOOD SPECIMEN Ordering Facility: [facility] Address: [address] [place] [address] Original Ordering Provider: ROSELYN LEONARD [facility] Chromogranin A [Mass/Vol] 245.4 ng/mL High <187.0 [facility] Comment on above: Order Comment: Speci men Type: BLOOD SPECIMENOrdering Facility: [facility] Address: [address] [place] [address] Result Comment: The Chromogranin A test was performed using the [employer] II KRYPTOR method. Results obtained with different assay methods or kits cannot be used interchangeably. Performed By: #### 9 811-1 ####[facility] LABCLIA [id number] [address] OF [facility] Comprehensive metabolic 2000 panelon 10-15-2024 Albumin [Mass/Vol] 4.1 g/dL Normal 3.9-4.9 [facility] Comment on above: Order Comment: Speci men Type: BLOOD SPECIMENOrdering Facility: [facility] Address: [address] [place] [address] Result Comment: Antonio ected result: Previously reported as 4.3 g/dL on 10/15/2024 at 9:31 AM EST. Performed By: #### 2 4323-8 ####[facility] LABCLIA [id number] [address] STATES OF [facility] ALP [Catalytic activity/Vol] 145 U/L High 38-113 [facility] Comment on above: Order Comment: Speci men Type: BLOOD SPECIMENOrdering Facility: [facility] Address: [address] [place] [address] Result Comment: Antonio ected result: Previously reported as 141 U/L on 10/15/2024 at 9:31 AM EST. Performed By: #### 2 4323-8 ####[facility] LABCLIA [id number] [address] STATES OF [facility] ALT [Catalytic activity/Vol] 21 U/L Normal 10-54 [facility] Comment on above: Order Comment: Speci men Type: BLOOD SPECIMENOrdering Facility: [facility] Address: [address] [place] [address] Result Comment: Antonio ected result: Previously reported as 16 U/L on 10/15/2024 at 9:31 AM EST. Performed By: #### 2 4323-8 ####[facility] [id number] [place] [address] [place] Anion gap [Moles/Vol] 12 mmol/L Normal 8-15 [facility] Comment on above: Order Comment: Speci men Type: BLOOD SPECIMENOrdering Facility: [facility] Address: [address] [place] [address] Performed By: #### 2 4323-8 ####[facility] [id number] [address] STATES OF [facility] AST [Catalytic activity/Vol] 34 U/L Normal 14-40 [facility] Comment on above: Order Comment: Speci men Type: BLOOD SPECIMENOrdering Facility: [facility] Address: [address] [place] [address] Result Comment: Antonio ected result: Previously reported as 30 U/L on 10/15/2024 at 9:31 AM EST. Performed By: #### 2 4323-8 ####[facility] [id number] [place] [address] [place] Bilirubin [Mass/Vol] 0.3 mg/dL Normal 0.2-1.3 [facility] Comment on above: Order Comment: Speci men Type: BLOOD SPECIMENOrdering Facility: [facility] Address: [address] [place] [address] Result Comment: Antonio ected result: Previously reported as 0.4 mg/dL on 10/15/2024 at 9:31 AM EST. Performed By: #### 2 4323-8 ####[facility] LABCLIA [id number] [place] [address] [place] Calcium [Mass/Vol] 8.6 mg/dL Normal 8.5-10.2 [facility] Comment on above: Order Comment: Speci men Type: BLOOD SPECIMENOrdering Facility: [facility] Address: [address] [place] [address] Performed By: #### 2 4323-8 ####[facility] LABCLIA [id number] [place] [address] [place] Chloride [Moles/Vol] 111 mmol/L High 98-107 [facility] Comment on above: Order Comment: Speci men Type: BLOOD SPECIMENOrdering Facility: [facility] Address: [address] [place] [address] Performed By: #### 2 4323-8 ####[facility] LABCLIA [id number] [place] [address] [place] CO2 [Moles/Vol] 19 mmol/L Low 22-30 [facility] Comment on above: Order Comment: Speci men Type: BLOOD SPECIMENOrdering Facility: [facility] Address: [address] [place] [address] Result Comment: Antonio ected result: Previously reported as 22 mmol/L on 10/15/2024 at 9:31 AM EST. Performed By: #### 2 4323-8 ####[facility] LABCLIA [id number] [place] [address] [place] Creatinine [Mass/Vol] 1.37 mg/dL High 0.73-1.22 [facility] Comment on above: Order Comment: Speci men Type: BLOOD SPECIMENOrdering Facility: [facility] Address: [address] [place] [address] Performed By: #### 2 4323-8 ####[facility] LABCLIA [id number] [place] [address] [place] Creatinine and Glomerular filtration rate.predicted panel (S/P/Bld) 56 mL/min/1.73m??? Low >=60 [facility] Comment on above: Order Comment: Arben suarez Type: BLOOD SPECIMENOrdering Facility: [facility] Address: [address] [place] [address] Result Comment: Bailey mated Glomerular Filtration Rate [...] reflect actual GFR. Performed By: #### 2 4323-8 ####[facility] LABCLIA [id number] [place] [address] [place] Glucose [Mass/Vol] 85 mg/dL Normal 74-99 [facility] Comment on above: Order Comment: Arben suarez Type: BLOOD SPECIMENOrdering Facility: [facility] Address: [address] [place] [address] Result Comment: The [place] Diabetes Association (ADA) provides guidance for cutoff [...] Standards of Medical Care in Diabetes 2016, [place] Diabetes Association. Diabetes Care. 2016.39(Suppl 1).Corrected result: Previously reported as 90 mg/dL on 10/15/2024 at 9:31 AM EST. Performed By: #### 2 4323-8 ####[facility] LABCLIA [id number] [place] [id number] [place] Potassium [Moles/Vol] 4.8 mmol/L Normal 3.7-5.1 [facility] Comment on above: Order Comment: Speci men Type: BLOOD SPECIMENOrdering Facility: [facility] Address: [address] [place] [address] Performed By: #### 2 4323-8 ####[facility] LABCLIA [id number] [place] [address] [place] Protein [Mass/Vol] 7.1 g/dL Normal 6.3-8.0 [facility] Comment on above: Order Comment: Speci men Type: BLOOD SPECIMENOrdering Facility: [facility] Address: [address] [place] [address] Result Comment: Antonio ected result: Previously reported as 6.9 g/dL on 10/15/2024 at 9:31 AM EST. Performed By: #### 2 4323-8 ####[facility] LABCLIA [id number] [place] [address] [place] Sodium [Moles/Vol] 142 mmol/L Normal 136-144 [facility] Comment on above: Order Comment: Speci men Type: BLOOD SPECIMENOrdering Facility: [facility] Address: [address] [place] [address] Performed By: #### 2 4323-8 ####[facility] LABCLIA [id number] [place] [address] [place] Urea nitrogen [Mass/Vol] 18 mg/dL Normal 9-24 [facility] Comment on above: Order Comment: Speci men Type: BLOOD SPECIMENOrdering Facility: [facility] Address: [address] [place] [address] Result Comment: Antonio ected result: Previously reported as 20 mg/dL on 10/15/2024 at 9:31 AM EST. Performed By: #### 2 4323-8 ####[facility] LABCLIA [id number] [place] [address] [place] Gastrin SerPl-mCncon 025 Gastrin [Mass/Vol] 33.0 pg/mL Normal <115.0 [facility] Comment on above: Order Comment: Speci daniela Type: BLOOD SPECIMENOrdering Facility: [facility] Address: [address] [place] [address] Result Comment: The Gastrin test was performed using the Siemens Immulite chemiluminescent immunometric method. Results obtained with different assay methods or kits cannot be used interchangeably. Performed By: #### 2 333-3 ####[facility] LABCLIA [id number] [facility] [address] [place] SEROTONIN BLDon 10-15-2024 SEROTONIN SERUM 1877 ng/mL High 50-220 [facility] Comment on above: Order Comment: Demarcusi daniela Type: BLOOD SPECIMENOrdering Facility: [facility] Address: [address] [place] [address] Result Comment: TEST INFORMATION: Serotonin, SerumThis test was developed and its performance characteristicsdetermined by [facility]. It has not been cleared orapproved by the [place] Food and Drug Administration. This test wasperformed in a CLIA certified laboratory and is intended forclinical purposes.Performed By: [facility] [place] [id number] Director: Santosh Hollis MD, PhDCLIA Number: [id number] Performed By: #### S ERTON ####[facility] S[facility]THIA [id number] [place] [address] VASOACTIVE INTESTINAL POLYPE PTIDE (VIP), PLASMAon 10-15-2024 VASOACTIVE INTESTINAL POLYPEPTIDE 32.5 pg/mL Normal 0.0-89.1 [facility] Comment on above: Order Comment: Speci men Type: BLOOD SPECIMENOrdering Facility: [facility] Address: [address] [place] [address] Result Comment: This test was developed and its performance characteristicsdetermined by [facility]. It has not been cleared orapproved by the U.S. Food and Drug Administration. This test wasperformed in a CLIA-certified laboratory and is intended forclinical purposes.Performed By: [facility] [id number] [place], [place] [address]Ymukrhoatr Director: Santosh Hollis MD, PhDCLIA Number: [id number] Performed By: #### V IP ####[facility] [id number] [place] [address] CBC W Auto Differential pane l (Bld)on 09-24-2024 Basophils (Bld) [#/Vol] 0.06 10*3/uL Normal <0.11 [facility] Comment on above: Order Comment: Speci men Type: BLOOD SPECIMENOrdering Facility: [facility] Address: [address] [place] [address] Performed By: #### 5 7021-8 ####[facility] LABCLIA [id number] [place] [address] Basophils/100 WBC (Bld) 1.4 % Normal C [facility] Comment on above: Order Comment: Speci men Type: BLOOD SPECIMENOrdering Facility: [facility] Address: [address] [place] [address] Performed By: #### 5 7021-8 ####[facility] LABCLIA [id number] [place] [address] Differential cell count method Nom (Bld) Auto Normal [facility] Comment on above: Order Comment: Speci men Type: BLOOD SPECIMENOrdering Facility: [facility] Address: [address] [place] [address] Performed By: #### 5 7021-8 ####[facility] LABCLIA [id number] [place] [address] Eosinophils (Bld) [#/Vol] 0.39 10*3/uL Normal <0.46 [facility] Comment on above: Order Comment: Speci men Type: BLOOD SPECIMENOrdering Facility: [facility] Address: [address] [place] [address] Performed By: #### 5 7021-8 ####[facility] LABCLIA [id number] [place] [address] Eosinophils/100 WBC (Bld) 9.0 % Normal [facility] Comment on above: Order Comment: Speci men Type: BLOOD SPECIMENOrdering Facility: [facility] Address: [address] [place] [address] Performed By: #### 5 7021-8 ####[facility] LABCLIA [id number] [place] [address] Erythrocyte distribution width (RBC) [Ratio] 13.0 % Normal 11.5-15.0 [facility] Comment on above: Order Comment: Speci men Type: BLOOD SPECIMENOrdering Facility: [facility] Address: [address] [place] [address] Performed By: #### 5 7021-8 ####[facility] LABIA [id number] [place] [address] Hematocrit (Bld) [Volume fraction] 36.8 % Low 39.0-51.0 [facility] Comment on above: Order Comment: Speci men Type: BLOOD SPECIMENOrdering Facility: [facility] Address: [address] [place] [address] Performed By: #### 5 7021-8 ####[facility] LABCLIA [id number] [place] [address] Hemoglobin (Bld) [Mass/Vol] 11.7 g/dL Low 13.0-17.0 [facility] Comment on above: Order Comment: Speci men Type: BLOOD SPECIMENOrdering Facility: [facility] Address: [address] [place] [address] Performed By: #### 5 7021-8 ####[facility] LABIA [id number] [place] [address] Immature granulocytes (Bld) [#/Vol] 10*3/uL Normal <0.10 [facility] Comment on above: Order Comment: Speci men Type: BLOOD SPECIMENOrdering Facility: [facility] Address: [address] [place] [address] Performed By: #### 5 7021-8 ####[facility] LABCLIA [id number] [place] [address] Immature granulocytes/100 WBC (Bld) 0.2 % Normal [facility] Comment on above: Order Comment: Speci men Type: BLOOD SPECIMENOrdering Facility: [facility] Address: [address] [place] [address] Performed By: #### 5 7021-8 ####[facility] LABCLIA [id number] [place] [address] Lymphocytes (Bld) [#/Vol] 0.52 10*3/uL Low 1.00-4.00 [facility] Comment on above: Order Comment: Speci men Type: BLOOD SPECIMENOrdering Facility: [facility] Address: [address] [place] [address] Performed By: #### 5 7021-8 ####[facility] LABCLIA [id number] [place] [address] Lymphocytes/100 WBC (Bld) 12.1 % Normal [facility] Comment on above: Order Comment: Speci men Type: BLOOD SPECIMENOrdering Facility: [facility] Address: [address] [place] [address] Performed By: #### 5 7021-8 ####[facility] LABCLIA [id number] [place] [address] MCH (RBC) [Entitic mass] 30.0 pg Normal 26.0-34.0 [facility] Comment on above: Order Comment: Speci men Type: BLOOD SPECIMENOrdering Facility: [facility] Address: [address] [place] [address] Performed By: #### 5 7021-8 ####[facility] LABCLIA [id number] [place] [address] MCHC (RBC) [Mass/Vol] 31.8 g/dL Normal 30.5-36.0 [facility] Comment on above: Order Comment: Speci men Type: BLOOD SPECIMENOrdering Facility: [facility] Address: [address] [place] [address] Performed By: #### 5 7021-8 ####[facility] LABCLIA [id number] [place] [address] MCV (RBC) [Entitic vol] 94.4 fL Normal 80.0-100.0 C [facility] Comment on above: Order Comment: Speci men Type: BLOOD SPECIMENOrdering Facility: [facility] Address: [address] [place] [address] Performed By: #### 5 7021-8 ####[facility] LABCLIA [id number] [place] [address] Monocytes (Bld) [#/Vol] 0.66 10*3/uL Normal <0.87 [facility] Comment on above: Order Comment: Speci men Type: BLOOD SPECIMENOrdering Facility: [facility] Address: [address] [place] [address] Performed By: #### 5 7021-8 ####[facility] LABCLIA [id number] [place] [address] Monocytes/100 WBC (Bld) 15.3 % Normal [facility] Comment on above: Order Comment: Speci men Type: BLOOD SPECIMENOrdering Facility: [facility] Address: [address] [place] [address] Performed By: #### 5 7021-8 ####[facility] LABCLIA [id number] [place] [address] Neutrophils (Bld) [#/Vol] 2.67 10*3/uL Normal 1.45-7.50 [facility] Comment on above: Order Comment: Speci men Type: BLOOD SPECIMENOrdering Facility: [facility] Address: [address] [place] [address] Performed By: #### 5 7021-8 ####[facility] LABCLIA [id number] [place] [address] Neutrophils/100 WBC (Bld) 62.0 % Normal [facility] Comment on above: Order Comment: Speci men Type: BLOOD SPECIMENOrdering Facility: [facility] Address: [address] [place] [address] Performed By: #### 5 7021-8 ####[facility] LABCLIA [id number] [place] [address] Nucleated RBC (Bld) [#/Vol] 10*3/uL Normal <0.01 [facility] Comment on above: Order Comment: Speci men Type: BLOOD SPECIMENOrdering Facility: [facility] Address: [address] [place] [address] Performed By: #### 5 7021-8 ####[facility] LABCLIA [id number] [place] [address] Nucleated RBC/100 WBC (Bld) [Ratio] 0.0 /100 WBC Normal [facility] Comment on above: Order Comment: Speci men Type: BLOOD SPECIMENOrdering Facility: [facility] Address: [address] [place] [address] Performed By: #### 5 7021-8 ####[facility] LABCLIA [id number] [place] [address] Platelet mean volume (Bld) [Entitic vol] 10.2 fL Normal 9.0-12.7 [facility] Comment on above: Order Comment: Speci men Type: BLOOD SPECIMENOrdering Facility: [facility] Address: [address] [place] [address] Performed By: #### 5 7021-8 ####[facility] LABCLIA [id number] [place] [address] Platelets (Bld) [#/Vol] 212 10*3/uL Normal 150-400 [facility] Comment on above: Order Comment: Speci men Type: BLOOD SPECIMENOrdering Facility: [facility] Address: [address] [place] [address] Performed By: #### 5 7021-8 ####[facility] LABIA [id number] [place] [address] RBC (Bld) [#/Vol] 3.90 10*6/uL Low 4.20-6.00 [facility] Comment on above: Order Comment: Speci men Type: BLOOD SPECIMENOrdering Facility: [facility] Address: [address] [place], [place] [address] Performed By: #### 5 7021-8 ####[facility] LABIA [id number] [place] [address] WBC (Bld) [#/Vol] 4.31 10*3/uL Normal 3.70-11.00 [facility] Comment on above: Order Comment: Speci men Type: BLOOD SPECIMENOrdering Facility: [facility] Address: [address] [place], [place] [address] Performed By: #### 5 7021-8 ####[facility] LABIA [id number] [place] [address] [facility] CBC W AUTO DIFF BLDon Basophils/100 WBC (Bld) 1.4 % [facility] BASOPHILS # BLD AUTO 0.06 [facility] DIFFERENTIAL METHOD BLD Auto [facility] EOSINOPHIL # BLD AUTO 0.39 [facility] LYMPHOCYTES # BLD AUTO 0.52 Low [facility] MONOCYTES # BLD AUTO 0.66 [facility] NEUTROPHILS # BLD AUTO 2.67 [facility] NRBC # BLD AUTO <0.01 [facility] NRBC/100 WBC BLD-RTO 0 /100 WBC [facility] PLATELET # BLD AUTO 212 [facility] PMV BLD AUTO 10.2 fL 9.0 - 12.7 fL [facility] WBC # BLD AUTO 4.31 [facility] Eosinophils/100 WBC (Bld) 9 % [facility] Erythrocyte distribution width (RBC) [Ratio] 13 % 11.5 - 15.0 % [facility] Hematocrit (Bld) [Volume fraction] 36.8 % Low 39.0 - 51.0 % [facility] Hemoglobin (Bld) [Mass/Vol] 11.7 g/dL Low 13.0 - 17.0 g/dL [facility] IMM GRANULOCYTES # BLD AUTO <0.03 NINF [facility] IMM GRANULOCYTES/LEUK NFR BLD AUTO 0.2 % [facility] Interpretation and review of laboratory results Abnormal [facility] Lymphocytes/100 WBC (Bld) 12.1 % [facility] MCH (RBC) [Entitic mass] 30 pg 26.0 - 34.0 pg [facility] MCHC (RBC) [Mass/Vol] 31.8 g/dL 30.5 - 36.0 g/dL [facility] MCV (RBC) [Entitic vol] 94.4 fL 80.0 - 100.0 fL [facility] Monocytes/100 WBC (Bld) 15.3 % [facility] Neutrophils/100 WBC (Bld) 62 % [facility] RBC (Bld) [#/Vol] 3.9 10*6/uL Low 4.20 - 6.00 m/uL [facility] Specimen Type: BLOOD SPECIMEN Ordering Facility: [facility] Address: [address] [place] [address] Original Ordering Provider: ROSELYN RAMIREZ [facility] CgA SerPl-mCncon 09-24-2024 Chromogranin A [Mass/Vol] 209.0 ng/mL High <187.0 [facility] Comment on above: Order Comment: Speci men Type: BLOOD SPECIMENOrdering Facility: [facility] Address: [address] [place] [address] Result Comment: The Chromogranin A test was performed using the [employer] CgA II KRYPTOR method. Results obtained with different assay methods or kits cannot be used interchangeably. Performed By: #### 9 811-1 ####[facility] LABCLIA [id number] [facility] [id number] [place] [address] [place] Comprehensive metabolic 2000 panelon 01-31-2025 Albumin [Mass/Vol] 4.1 g/dL Normal 3.9-4.9 [facility] Comment on above: Order Comment: Speci men Type: BLOOD SPECIMENOrdering Facility: [facility] Address: [address] [place] [address] Performed By: #### 2 4323-8 ####[facility] LABCLIA [id number] [place] [address] ALP [Catalytic activity/Vol] 149 U/L High 38-113 [facility] Comment on above: Order Comment: Speci men Type: BLOOD SPECIMENOrdering Facility: [facility] Address: [address] [place] [address] Performed By: #### 2 4323-8 ####[facility] LABCLIA [id number] [place] [address] ALT [Catalytic activity/Vol] 14 U/L Normal 10-54 [facility] Comment on above: Order Comment: Speci men Type: BLOOD SPECIMENOrdering Facility: [facility] Address: [address] [place] [address] Performed By: #### 2 4323-8 ####[facility] LABCLIA [id number] [place] [address] Anion gap [Moles/Vol] 10 mmol/L Normal 8-15 [facility] Comment on above: Order Comment: Speci men Type: BLOOD SPECIMENOrdering Facility: [facility] Address: [address] [place] [address] Performed By: #### 2 4323-8 ####[facility] LABCLIA [id number] [place] [address] AST [Catalytic activity/Vol] 27 U/L Normal 14-40 [facility] Comment on above: Order Comment: Speci men Type: BLOOD SPECIMENOrdering Facility: [facility] Address: [address] [place] [address] Performed By: #### 2 4323-8 ####[facility] LABCLIA [id number] [place] [address] Bilirubin [Mass/Vol] 0.5 mg/dL Normal 0.2-1.3 [facility] Comment on above: Order Comment: Speci men Type: BLOOD SPECIMENOrdering Facility: [facility] Address: [address] [place] [address] Performed By: #### 2 4323-8 ####[facility] LABCLIA [id number] [place] [address] Calcium [Mass/Vol] 8.8 mg/dL Normal 8.5-10.2 [facility] Comment on above: Order Comment: Speci men Type: BLOOD SPECIMENOrdering Facility: [facility] Address: [address] [place] [address] Performed By: #### 2 4323-8 ####[facility] LABCLIA [id number] [place] [address] Chloride [Moles/Vol] 109 mmol/L High 98-107 [facility] Comment on above: Order Comment: Speci men Type: BLOOD SPECIMENOrdering Facility: [facility] Address: [address] [place] [address] Performed By: #### 2 4323-8 ####[facility] LABCLIA [id number] [place] [address] CO2 [Moles/Vol] 20 mmol/L Low 22-30 [facility] Comment on above: Order Comment: Speci men Type: BLOOD SPECIMENOrdering Facility: [facility] Address: [address] [place] [address] Performed By: #### 2 4323-8 ####[facility] LABCLIA [id number] [place] [address] Creatinine [Mass/Vol] 1.14 mg/dL Normal 0.73-1.22 [facility] Comment on above: Order Comment: Speci men Type: BLOOD SPECIMENOrdering Facility: [facility] Address: [address] [place] [address] Performed By: #### 2 4323-8 ####[facility] LABCLIA [id number] [place] [address] Creatinine and Glomerular filtration rate.predicted panel (S/P/Bld) 70 mL/min/1.73m??? Normal >=60 [facility] Comment on above: Order Comment: Arben suarez Type: BLOOD SPECIMENOrdering Facility: [facility] Address: [address] [place] [address] Result Comment: Bailey mated Glomerular Filtration Rate [...] reflect actual GFR. Performed By: #### 2 4323-8 ####[facility] LABCLIA [id number] [place] [address] Glucose [Mass/Vol] 91 mg/dL Normal 74-99 [facility] Comment on above: Order Comment: Arben suarez Type: BLOOD SPECIMENOrdering Facility: [facility] Address: [address] [place] [address] Result Comment: The [place] Diabetes Association (ADA) provides guidance for cutoff [...] Standards of Medical Care in Diabetes 2016, [place] [employer]. Diabetes Care. 2016.39(Suppl 1). Performed By: #### 2 4323-8 ####[facility] LABCLIA [id number] [place] [address] Potassium [Moles/Vol] 4.6 mmol/L Normal 3.7-5.1 [facility] Comment on above: Order Comment: Speci men Type: BLOOD SPECIMENOrdering Facility: [facility] Address: [address] [place] [address] Performed By: #### 2 4323-8 ####[facility] LABCLIA [id number] [place] [address] Protein [Mass/Vol] 7.1 g/dL Normal 6.3-8.0 [facility] Comment on above: Order Comment: Speci men Type: BLOOD SPECIMENOrdering Facility: [facility] Address: [address] [place] [address] Performed By: #### 2 4323-8 ####[facility] LABCLIA [id number] [place] [address] Sodium [Moles/Vol] 139 mmol/L Normal 136-144 [facility] Comment on above: Order Comment: Speci men Type: BLOOD SPECIMENOrdering Facility: [facility] Address: [address] [place] [address] Performed By: #### 2 4323-8 ####[facility] LABCLIA [id number] [place] [address] Urea nitrogen [Mass/Vol] 25 mg/dL High 9-24 [facility] Comment on above: Order Comment: Speci men Type: BLOOD SPECIMENOrdering Facility: [facility] Address: [address] [place] [address] Performed By: #### 2 4323-8 ####[facility] LABIA [id number] [place] [address] Gastrin SerPl-ncon 09-24- 025 Gastrin [Mass/Vol] 43.2 pg/mL Normal <115.0 [facility] Comment on above: Order Comment: Speci men Type: BLOOD SPECIMENOrdering Facility: [facility] Address: [address] [place] [address] Result Comment: The Gastrin test was performed using the Siemens Immulite chemiluminescent immunometric method. Results obtained with different assay methods or kits cannot be used interchangeably. Performed By: #### 2 333-3 ####[facility] LABCLIA [id number] [facility] [id number] V[place] [id number] [place] SEROTONIN BLDon 09-24-2024 SEROTONIN SERUM 1329 ng/mL High 50-220 [facility] Comment on above: Order Comment: Speci men Type: BLOOD SPECIMENOrdering Facility: [facility] Address: [address] [place] [address] Result Comment: TEST INFORMATION: Serotonin, SerumThis test was developed and its performance characteristicsdetermined by [facility]. It has not been cleared orapproved by the [place] Food and Drug Administration. This test wasperformed in a CLIA certified laboratory and is intended forclinical purposes.Performed By: [facility] [place] [id number] Director: Santosh Hollis MD, PhDCLIA Number: [id number] Performed By: #### S ERTON ####[facility] S[facility]THIA [id number] [place] [address] VASOACTIVE INTESTINAL POLYPE PTIDE (VIP), PLASMAon 09-24-2024 VASOACTIVE INTESTINAL POLYPEPTIDE 41.9 pg/mL Normal 0.0-89.1 [facility] Comment on above: Order Comment: Speci men Type: BLOOD SPECIMENOrdering Facility: [facility] Address: [address] [place] [address] Result Comment: This test was developed and its performance characteristicsdetermined by [facility]. It has not been cleared orapproved by the U.S. Food and Drug Administration. This test wasperformed in a CLIA-certified laboratory and is intended forclinical purposes.Performed By: [facility] [place] [address] [id number] Director: Santosh Hollis MD, PhDCLIA Number: [id number] Performed By: #### V IP ####[facility] [id number] [place] [address] CNPNon 09-22-2024 CNPN Normal [facility] CBC W Auto Differential pane l (Bld)on 09-03-2024 Basophils (Bld) [#/Vol] 0.04 10*3/uL Normal <0.11 [facility] Comment on above: Order Comment: Speci men Type: BLOOD SPECIMENOrdering Facility: [facility] Address: [address] [place] [address] Performed By: #### 5 7021-8 ####[facility] LABCLIA [id number] [place] [address] Basophils/100 WBC (Bld) 1.2 % Normal [facility] Comment on above: Order Comment: Speci men Type: BLOOD SPECIMENOrdering Facility: [facility] Address: [address] [place] [address] Performed By: #### 5 7021-8 ####[facility] LABCLIA [id number] [place] [address] Differential cell count method Nom (Bld) Auto Normal [facility] Comment on above: Order Comment: Speci men Type: BLOOD SPECIMENOrdering Facility: [facility] Address: [address] [place] [address] Performed By: #### 5 7021-8 ####[facility] LABCLIA [id number] [place] [address] Eosinophils (Bld) [#/Vol] 0.44 10*3/uL Normal <0.46 [facility] Comment on above: Order Comment: Speci men Type: BLOOD SPECIMENOrdering Facility: [facility] Address: [address] [place] [address] Performed By: #### 5 7021-8 ####[facility] LABCLIA [id number] [place] [address] Eosinophils/100 WBC (Bld) 13.0 % Normal [facility] Comment on above: Order Comment: Speci men Type: BLOOD SPECIMENOrdering Facility: [facility] Address: [address] [place] [address] Performed By: #### 5 7021-8 ####[facility] LABCLIA [id number] [place] [address] Erythrocyte distribution width (RBC) [Ratio] 13.0 % Normal 11.5-15.0 [facility] Comment on above: Order Comment: Speci men Type: BLOOD SPECIMENOrdering Facility: [facility] Address: [address] [place] [address] Performed By: #### 5 7021-8 ####[facility] LABCLIA [id number] [place] [address] Hematocrit (Bld) [Volume fraction] 35.1 % Low 39.0-51.0 [facility] Comment on above: Order Comment: Speci men Type: BLOOD SPECIMENOrdering Facility: [facility] Address: [address] [place] [address] Performed By: #### 5 7021-8 ####[facility] LABCLIA [id number] [place] [address] Hemoglobin (Bld) [Mass/Vol] 11.5 g/dL Low 13.0-17.0 [facility] Comment on above: Order Comment: Speci men Type: BLOOD SPECIMENOrdering Facility: [facility] Address: [address] [place] [address] Performed By: #### 5 7021-8 ####[facility] LABCLIA [id number] [place] [address] Immature granulocytes (Bld) [#/Vol] 10*3/uL Normal <0.10 [facility] Comment on above: Order Comment: Speci men Type: BLOOD SPECIMENOrdering Facility: [facility] Address: [address] [place] [address] Performed By: #### 5 7021-8 ####[facility] LABCLIA [id number] [place] [address] Immature granulocytes/100 WBC (Bld) 0.6 % Normal [facility] Comment on above: Order Comment: Speci men Type: BLOOD SPECIMENOrdering Facility: [facility] Address: [address] [place] [address] Performed By: #### 5 7021-8 ####[facility] LABCLIA [id number] [place] [address] Lymphocytes (Bld) [#/Vol] 0.59 10*3/uL Low 1.00-4.00 [facility] Comment on above: Order Comment: Speci men Type: BLOOD SPECIMENOrdering Facility: [facility] Address: [address] [place] [address] Performed By: #### 5 7021-8 ####[facility] LABCLIA [id number] [place] [address] Lymphocytes/100 WBC (Bld) 17.5 % Normal [facility] Comment on above: Order Comment: Speci men Type: BLOOD SPECIMENOrdering Facility: [facility] Address: [address] [place] [address] Performed By: #### 5 7021-8 ####[facility] LABCLIA [id number] [place] [address] MCH (RBC) [Entitic mass] 31.7 pg Normal 26.0-34.0 [facility] Comment on above: Order Comment: Speci men Type: BLOOD SPECIMENOrdering Facility: [facility] Address: [address] [place] [address] Performed By: #### 5 7021-8 ####[facility] LABCLIA [id number] [place] [address] MCHC (RBC) [Mass/Vol] 32.8 g/dL Normal 30.5-36.0 [facility] Comment on above: Order Comment: Speci men Type: BLOOD SPECIMENOrdering Facility: [facility] Address: [address] [place] [address] Performed By: #### 5 7021-8 ####[facility] LABCLIA [id number] [place] [address] MCV (RBC) [Entitic vol] 96.7 fL Normal 80.0-100.0 C [facility] Comment on above: Order Comment: Speci men Type: BLOOD SPECIMENOrdering Facility: [facility] Address: [address] [place] [address] Performed By: #### 5 7021-8 ####[facility] LABCLIA [id number] [place] [address] Monocytes (Bld) [#/Vol] 0.51 10*3/uL Normal <0.87 [facility] Comment on above: Order Comment: Speci men Type: BLOOD SPECIMENOrdering Facility: [facility] Address: [address] [place] [address] Performed By: #### 5 7021-8 ####[facility] LABCLIA [id number] [place] [address] Monocytes/100 WBC (Bld) 15.1 % Normal C [facility] Comment on above: Order Comment: Speci men Type: BLOOD SPECIMENOrdering Facility: [facility] Address: [address] [place] [address] Performed By: #### 5 7021-8 ####[facility] LABCLIA [id number] [place] [address] Neutrophils (Bld) [#/Vol] 1.78 10*3/uL Normal 1.45-7.50 [facility] Comment on above: Order Comment: Speci men Type: BLOOD SPECIMENOrdering Facility: [facility] Address: [address] [place] [address] Performed By: #### 5 7021-8 ####[facility] LABIA [id number] [place] [address] Neutrophils/100 WBC (Bld) 52.6 % Normal [facility] Comment on above: Order Comment: Speci men Type: BLOOD SPECIMENOrdering Facility: [facility] Address: [address] [place] [address] Performed By: #### 5 7021-8 ####[facility] LABCLIA [id number] [place] [address] Nucleated RBC (Bld) [#/Vol] 10*3/uL Normal <0.01 [facility] Comment on above: Order Comment: Speci men Type: BLOOD SPECIMENOrdering Facility: [facility] Address: [address] [place] [address] Performed By: #### 5 7021-8 ####[facility] LABCLIA [id number] [place] [address] Nucleated RBC/100 WBC (Bld) [Ratio] 0.0 /100 WBC Normal [facility] Comment on above: Order Comment: Speci men Type: BLOOD SPECIMENOrdering Facility: [facility] Address: [address] [place] [address] Performed By: #### 5 7021-8 ####[facility] LABIA [id number] [place] [address] Platelet mean volume (Bld) [Entitic vol] 9.7 fL Normal 9.0-12.7 [facility] Comment on above: Order Comment: Speci men Type: BLOOD SPECIMENOrdering Facility: [facility] Address: [address] [place] [address] Performed By: #### 5 7021-8 ####[facility] LABCLIA [id number] [place] [address] Platelets (Bld) [#/Vol] 203 10*3/uL Normal 150-400 [facility] Comment on above: Order Comment: Speci men Type: BLOOD SPECIMENOrdering Facility: [facility] Address: [address] [place] [address] Performed By: #### 5 7021-8 ####[facility] LABCLIA [id number] [place] [address] RBC (Bld) [#/Vol] 3.63 10*6/uL Low 4.20-6.00 [facility] Comment on above: Order Comment: Speci men Type: BLOOD SPECIMENOrdering Facility: [facility] Address: [address] [place] [address] Performed By: #### 5 7021-8 ####[facility] LABCLIA [id number] [place] [address] WBC (Bld) [#/Vol] 3.38 10*3/uL Low 3.70-11.00 [facility] Comment on above: Order Comment: Speci men Type: BLOOD SPECIMENOrdering Facility: [facility] Address: [address] [place] [address] Performed By: #### 5 7021-8 ####[facility] LABCLIA [id number] [place] [address] [facility] CBC W AUTO DIFF BLDon Basophils/100 WBC (Bld) 1.2 % [facility] BASOPHILS # BLD AUTO 0.04 [facility] DIFFERENTIAL METHOD BLD Auto [facility] EOSINOPHIL # BLD AUTO 0.44 [facility] LYMPHOCYTES # BLD AUTO 0.59 Low [facility] MONOCYTES # BLD AUTO 0.51 [facility] NEUTROPHILS # BLD AUTO 1.78 [facility] NRBC # BLD AUTO <0.01 [facility] NRBC/100 WBC BLD-RTO 0 /100 WBC [facility] PLATELET # BLD AUTO 203 [facility] PMV BLD AUTO 9.7 fL 9.0 - 12.7 fL [facility] WBC # BLD AUTO 3.38 Low [facility] Eosinophils/100 WBC (Bld) 13 % [facility] Erythrocyte distribution width (RBC) [Ratio] 13 % 11.5 - 15.0 % [facility] Hematocrit (Bld) [Volume fraction] 35.1 % Low 39.0 - 51.0 % [facility] Hemoglobin (Bld) [Mass/Vol] 11.5 g/dL Low 13.0 - 17.0 g/dL [facility] IMM GRANULOCYTES # BLD AUTO <0.03 NINF [facility] IMM GRANULOCYTES/LEUK NFR BLD AUTO 0.6 % [facility] Interpretation and review of laboratory results Abnormal [facility] Lymphocytes/100 WBC (Bld) 17.5 % [facility] MCH (RBC) [Entitic mass] 31.7 pg 26.0 - 34.0 pg [facility] MCHC (RBC) [Mass/Vol] 32.8 g/dL 30.5 - 36.0 g/dL [facility] MCV (RBC) [Entitic vol] 96.7 fL 80.0 - 100.0 fL [facility] Monocytes/100 WBC (Bld) 15.1 % [facility] Neutrophils/100 WBC (Bld) 52.6 % [facility] RBC (Bld) [#/Vol] 3.63 10*6/uL Low 4.20 - 6.00 m/uL [facility] Specimen Type: BLOOD SPECIMEN [facility] Address: [address] [place] [address] Original Ordering Provider: ROSELYN RAMIREZ [facility] CgA SerPl-ncon 09-03-2024 Chromogranin A [Mass/Vol] 195.6 ng/mL High <187.0 [facility] Comment on above: Order Comment: Speci men Type: BLOOD SPECIMENOrdering Facility: [facility] Address: [address] [place] [address] Result Comment: The Chromogranin A test was performed using the [employer] CgA II KRYPTOR method. Results obtained with different assay methods or kits cannot be used interchangeably. Performed By: #### 9 811-1 ####[facility] LABCLIA [id number] [place] [address] [place] Comprehensive metabolic 2000 panelon 09-03-2024 Albumin [Mass/Vol] 3.9 g/dL Normal 3.9-4.9 [facility] Comment on above: Order Comment: Speci men Type: BLOOD SPECIMENOrdering Facility: [facility] Address: [address] [place] [address] Performed By: #### 2 4323-8 ####[facility] LABCLIA [id number] [place] [address] ALP [Catalytic activity/Vol] 125 U/L High 38-113 [facility] Comment on above: Order Comment: Speci men Type: BLOOD SPECIMENOrdering Facility: [facility] Address: [address] [place] [address] Performed By: #### 2 4323-8 ####[facility] LABCLIA [id number] [place] [address] ALT [Catalytic activity/Vol] 13 U/L Normal 10-54 [facility] Comment on above: Order Comment: Speci men Type: BLOOD SPECIMENOrdering Facility: [facility] Address: [address] [place] [address] Performed By: #### 2 4323-8 ####[facility] LABCLIA [id number] [place] [address] Anion gap [Moles/Vol] 10 mmol/L Normal 8-15 [facility] Comment on above: Order Comment: Speci men Type: BLOOD SPECIMENOrdering Facility: [facility] Address: [address] [place] [address] Performed By: #### 2 4323-8 ####[facility] LABCLIA [id number] [place] [address] AST [Catalytic activity/Vol] 23 U/L Normal 14-40 [facility] Comment on above: Order Comment: Speci men Type: BLOOD SPECIMENOrdering Facility: [facility] Address: [address] [place] [address] Performed By: #### 2 4323-8 ####[facility] LABCLIA [id number] [place] [address] Bilirubin [Mass/Vol] 0.2 mg/dL Normal 0.2-1.3 [facility] Comment on above: Order Comment: Speci men Type: BLOOD SPECIMENOrdering Facility: [facility] Address: [address] [place] [address] Performed By: #### 2 4323-8 ####[facility] LABCLIA [id number] [place] [address] Calcium [Mass/Vol] 8.4 mg/dL Low 8.5-10.2 [facility] Comment on above: Order Comment: Speci men Type: BLOOD SPECIMENOrdering Facility: [facility] Address: [address] [place] [address] Performed By: #### 2 4323-8 ####[facility] LABCLIA [id number] [place] [address] Chloride [Moles/Vol] 115 mmol/L High 98-107 [facility] Comment on above: Order Comment: Speci men Type: BLOOD SPECIMENOrdering Facility: [facility] Address: [address] [place] [address] Performed By: #### 2 4323-8 ####[facility] LABCLIA [id number] [place] [address] CO2 [Moles/Vol] 20 mmol/L Low 22-30 [facility] Comment on above: Order Comment: Speci men Type: BLOOD SPECIMENOrdering Facility: [facility] Address: [address] [place] [address] Performed By: #### 2 4323-8 ####[facility] LABCLIA [id number] [place] [address] Creatinine [Mass/Vol] 1.16 mg/dL Normal 0.73-1.22 [facility] Comment on above: Order Comment: Speci men Type: BLOOD SPECIMENOrdering Facility: [facility] Address: [address] [place], [place] [address] Performed By: #### 2 4323-8 ####[facility] LABCLIA [id number] [place] [address] Creatinine and Glomerular filtration rate.predicted panel (S/P/Bld) 68 mL/min/1.73m??? Normal >=60 [facility] Comment on above: Order Comment: Arben suarez Type: BLOOD SPECIMENOrdering Facility: [facility] Address: [address] [place] [address] Result Comment: Bailey mated Glomerular Filtration Rate [...] reflect actual GFR. Performed By: #### 2 4323-8 ####[facility] LABCLIA [id number] [place] [address] Glucose [Mass/Vol] 102 mg/dL High 74-99 [facility] Comment on above: Order Comment: Arben suarez Type: BLOOD SPECIMENOrdering Facility: [facility] Address: [address] [place] [address] Result Comment: The [place] [employer] Association (ADA) provides guidance for cutoff [...] Standards of Medical Care in Diabetes 2016, [place] [employer]. Diabetes Care. 2016.39(Suppl 1). Performed By: #### 2 4323-8 ####[facility] LABCLIA [id number] [place] [address] Potassium [Moles/Vol] 4.7 mmol/L Normal 3.7-5.1 [facility] Comment on above: Order Comment: Speci men Type: BLOOD SPECIMENOrdering Facility: [facility] Address: [address] [place] [address] Performed By: #### 2 4323-8 ####[facility] LABCLIA [id number] [place] [address] Protein [Mass/Vol] 6.1 g/dL Low 6.3-8.0 [facility] Comment on above: Order Comment: Speci men Type: BLOOD SPECIMENOrdering Facility: [facility] Address: [address] [place] [address] Performed By: #### 2 4323-8 ####[facility] LABCLIA [id number] [place] [address] Sodium [Moles/Vol] 145 mmol/L High 136-144 [facility] Comment on above: Order Comment: Speci men Type: BLOOD SPECIMENOrdering Facility: [facility] Address: [address] [place] [address] Performed By: #### 2 4323-8 ####[facility] LABCLIA [id number] [place] [address] Urea nitrogen [Mass/Vol] 16 mg/dL Normal 9-24 [facility] Comment on above: Order Comment: Speci men Type: BLOOD SPECIMENOrdering Facility: [facility] Address: [address] [place] [address] Performed By: #### 2 4323-8 ####[facility] LABCLIA [id number] [place] [address] Gastrin [facility]2 025 Gastrin [Mass/Vol] 70.2 pg/mL Normal <115.0 [facility] Comment on above: Order Comment: Speci men Type: BLOOD SPECIMENOrdering Facility: [facility] Address: [address] [place] [address] Result Comment: The Gastrin test was performed using the Siemens Immulite chemiluminescent immunometric method. Results obtained with different assay methods or kits cannot be used interchangeably. Performed By: #### 2 333-3 ####[facility] LABCLIA [id number] [place] [address] [place] SEROTONIN BLDon 09-03-2024 SEROTONIN SERUM 1825 ng/mL High 50-220 [facility] Comment on above: Order Comment: Speci men Type: BLOOD SPECIMENOrdering Facility: [facility] Address: [address] [place] [address] Result Comment: TEST INFORMATION: Serotonin, SerumThis test was developed and its performance characteristicsdetermined by [employer]. It has not been cleared orapproved by the [place] Food and Drug Administration. This test wasperformed in a CLIA certified laboratory and is intended forclinical purposes.Performed By: [facility] [place] [address] [id number] Director: Santosh Hollis MD, PhDCLIA Number: [id number] Performed By: #### S ERTON ####[facility] S[facility]THIA [id number] [place] [id number] VASOACTIVE INTESTINAL POLYPE PTIDE (VIP), PLASMAon 09-03-2024 VASOACTIVE INTESTINAL POLYPEPTIDE <20.0 Normal 0.0-89.1 [facility] Comment on above: Order Comment: Speci men Type: BLOOD SPECIMENOrdering Facility: [facility] Address: [address] [place] [address] Result Comment: This test was developed and its performance characteristicsdetermined by [facility]. It has not been cleared orapproved by the U.S. Food and Drug Administration. This test wasperformed in a CLIA-certified laboratory and is intended forclinical purposes.Performed By: [facility] [address] [place] [id number] Director: Santosh Hollis MD, PhDCLIA Number: [id number] Performed By: #### V IP ####[facility] LABORATORIESCLIA [id number] [place] [address] CBC W Auto Differential pane l (Bld)on 08-13-2024 Basophils (Bld) [#/Vol] 0.06 10*3/uL Normal <0.11 [facility] Comment on above: Order Comment: Speci men Type: BLOOD SPECIMENOrdering Facility: [facility] Address: [address] [place] [address] Performed By: #### 5 7021-8 ####[facility] LABCLIA [id number] [place] [address] Basophils/100 WBC (Bld) 1.6 % Normal [facility] Comment on above: Order Comment: Speci men Type: BLOOD SPECIMENOrdering Facility: [facility] Address: [address] [place] [address] Performed By: #### 5 7021-8 ####[facility] LABCLIA [id number] [place] [address] Differential cell count method Nom (Bld) Auto Normal [facility] Comment on above: Order Comment: Speci men Type: BLOOD SPECIMENOrdering Facility: [facility] Address: [address] [place] [address] Performed By: #### 5 7021-8 ####[facility] LABCLIA [id number] [place] [address] Eosinophils (Bld) [#/Vol] 0.40 10*3/uL Normal <0.46 [facility] Comment on above: Order Comment: Speci men Type: BLOOD SPECIMENOrdering Facility: [facility] Address: [address] [place] [address] Performed By: #### 5 7021-8 ####[facility] LABCLIA [id number] [place] [address] Eosinophils/100 WBC (Bld) 10.6 % Normal [facility] Comment on above: Order Comment: Speci men Type: BLOOD SPECIMENOrdering Facility: [facility] Address: [address] [place] [address] Performed By: #### 5 7021-8 ####[facility] LABCLIA [id number] [place] [address] Erythrocyte distribution width (RBC) [Ratio] 12.6 % Normal 11.5-15.0 [facility] Comment on above: Order Comment: Speci men Type: BLOOD SPECIMENOrdering Facility: [facility] Address: [address] [place] [address] Performed By: #### 5 7021-8 ####[facility] LABCLIA [id number] [place] [address] Hematocrit (Bld) [Volume fraction] 33.7 % Low 39.0-51.0 [facility] Comment on above: Order Comment: Speci men Type: BLOOD SPECIMENOrdering Facility: [facility] Address: [address] [place] [address] Performed By: #### 5 7021-8 ####[facility] LABIA [id number] [place] [address] Hemoglobin (Bld) [Mass/Vol] 10.9 g/dL Low 13.0-17.0 [facility] Comment on above: Order Comment: Speci men Type: BLOOD SPECIMENOrdering Facility: [facility] Address: [address] [place] [address] Performed By: #### 5 7021-8 ####[facility] LABCLIA [id number] [place] [address] Immature granulocytes (Bld) [#/Vol] 10*3/uL Normal <0.10 [facility] Comment on above: Order Comment: Speci men Type: BLOOD SPECIMENOrdering Facility: [facility] Address: [address] [place] [id number] Performed By: #### 5 7021-8 ####[facility] LABIA [id number] [place] [address] Immature granulocytes/100 WBC (Bld) 0.5 % Normal [facility] Comment on above: Order Comment: Speci men Type: BLOOD SPECIMENOrdering Facility: [facility] Address: [address] [place] [address] Performed By: #### 5 7021-8 ####[facility] LABCLIA [id number] [place] [address] Lymphocytes (Bld) [#/Vol] 0.65 10*3/uL Low 1.00-4.00 [facility] Comment on above: Order Comment: Speci men Type: BLOOD SPECIMENOrdering Facility: [facility] Address: [address] [place] [address] Performed By: #### 5 7021-8 ####[facility] LABCLIA [id number] [place] [address] Lymphocytes/100 WBC (Bld) 17.2 % Normal [facility] Comment on above: Order Comment: Speci men Type: BLOOD SPECIMENOrdering Facility: [facility] Address: [address] [place] [address] Performed By: #### 5 7021-8 ####[facility] LABCLIA [id number] [place] [address] MCH (RBC) [Entitic mass] 31.3 pg Normal 26.0-34.0 [facility] Comment on above: Order Comment: Speci men Type: BLOOD SPECIMENOrdering Facility: [facility] Address: [address] [place] [address] Performed By: #### 5 7021-8 ####[facility] LABCLIA [id number] [place] [address] MCHC (RBC) [Mass/Vol] 32.3 g/dL Normal 30.5-36.0 [facility] Comment on above: Order Comment: Speci men Type: BLOOD SPECIMENOrdering Facility: [facility] Address: [address] [place] [address] Performed By: #### 5 7021-8 ####[facility] LABCLIA [id number] [place] [address] MCV (RBC) [Entitic vol] 96.8 fL Normal 80.0-100.0 [facility] Comment on above: Order Comment: Speci men Type: BLOOD SPECIMENOrdering Facility: [facility] Address: [address] [place] [address] Performed By: #### 5 7021-8 ####[facility] LABCLIA [id number] [place] [address] Monocytes (Bld) [#/Vol] 0.55 10*3/uL Normal <0.87 [facility] Comment on above: Order Comment: Speci men Type: BLOOD SPECIMENOrdering Facility: [facility] Address: [address] [place] [address] Performed By: #### 5 7021-8 ####[facility] LABCLIA [id number] [place] [address] Monocytes/100 WBC (Bld) 14.6 % Normal C [facility] Comment on above: Order Comment: Speci men Type: BLOOD SPECIMENOrdering Facility: [facility] Address: [address] [place] [address] Performed By: #### 5 7021-8 ####[facility] LABCLIA [id number] [place] [address] Neutrophils (Bld) [#/Vol] 2.09 10*3/uL Normal 1.45-7.50 [facility] Comment on above: Order Comment: Speci men Type: BLOOD SPECIMENOrdering Facility: [facility] Address: [address] [place] [address] Performed By: #### 5 7021-8 ####[facility] LABCLIA [id number] [place] [address] Neutrophils/100 WBC (Bld) 55.5 % Normal [facility] Comment on above: Order Comment: Speci men Type: BLOOD SPECIMENOrdering Facility: [facility] Address: [address] [place] [address] Performed By: #### 5 7021-8 ####[facility] LABCLIA [id number] [place] [address] Nucleated RBC (Bld) [#/Vol] 10*3/uL Normal <0.01 [facility] Comment on above: Order Comment: Speci men Type: BLOOD SPECIMENOrdering Facility: [facility] Address: [address] [place] [address] Performed By: #### 5 7021-8 ####[facility] LABCLIA [id number] [place] [address] Nucleated RBC/100 WBC (Bld) [Ratio] 0.0 /100 WBC Normal [facility] Comment on above: Order Comment: Speci men Type: BLOOD SPECIMENOrdering Facility: [facility] Address: [address] [place] [address] Performed By: #### 5 7021-8 ####[facility] LABCLIA [id number] [place] [address] Platelet mean volume (Bld) [Entitic vol] 10.4 fL Normal 9.0-12.7 [facility] Comment on above: Order Comment: Speci men Type: BLOOD SPECIMENOrdering Facility: [facility] Address: [address] [place] [address] Performed By: #### 5 7021-8 ####[facility] LABCLIA [id number] [place] [address] Platelets (Bld) [#/Vol] 241 10*3/uL Normal 150-400 [facility] Comment on above: Order Comment: Speci men Type: BLOOD SPECIMENOrdering Facility: [facility] Address: [address] [place] [address] Performed By: #### 5 7021-8 ####[facility] LABCLIA [id number] [place] [address] RBC (Bld) [#/Vol] 3.48 10*6/uL Low 4.20-6.00 [facility] Comment on above: Order Comment: Speci men Type: BLOOD SPECIMENOrdering Facility: [facility] Address: [address] [place] [address] Performed By: #### 5 7021-8 ####[facility] LABCLIA [id number] [place] [address] WBC (Bld) [#/Vol] 3.77 10*3/uL Normal 3.70-11.00 [facility] Comment on above: Order Comment: Speci men Type: BLOOD SPECIMENOrdering Facility: [facility] Address: [address] [place], [place] [address] Performed By: #### 5 7021-8 ####[facility] LABCLIA [id number] [place] [address] [facility] CBC W AUTO DIFF BLDon Basophils/100 WBC (Bld) 1.6 % [facility] BASOPHILS # BLD AUTO 0.06 [facility] DIFFERENTIAL METHOD BLD Auto [facility] EOSINOPHIL # BLD AUTO 0.4 [facility] LYMPHOCYTES # BLD AUTO 0.65 Low [facility] MONOCYTES # BLD AUTO 0.55 [facility] NEUTROPHILS # BLD AUTO 2.09 [facility] NRBC # BLD AUTO <0.01 [facility] NRBC/100 WBC BLD-RTO 0 /100 WBC [facility] PLATELET # BLD AUTO 241 [facility] PMV BLD AUTO 10.4 fL 9.0 - 12.7 fL [facility] WBC # BLD AUTO 3.77 [facility] Eosinophils/100 WBC (Bld) 10.6 % [facility] Erythrocyte distribution width (RBC) [Ratio] 12.6 % 11.5 - 15.0 % [facility] Hematocrit (Bld) [Volume fraction] 33.7 % Low 39.0 - 51.0 % [facility] Hemoglobin (Bld) [Mass/Vol] 10.9 g/dL Low 13.0 - 17.0 g/dL [facility] IMM GRANULOCYTES # BLD AUTO <0.03 [facility] IMM GRANULOCYTES/LEUK NFR BLD AUTO 0.5 % [facility] Interpretation and review of laboratory results Abnormal [facility] Lymphocytes/100 WBC (Bld) 17.2 % [facility] MCH (RBC) [Entitic mass] 31.3 pg 26.0 - 34.0 pg [facility] MCHC (RBC) [Mass/Vol] 32.3 g/dL 30.5 - 36.0 g/dL [facility] MCV (RBC) [Entitic vol] 96.8 fL 80.0 - 100.0 fL [facility] Monocytes/100 WBC (Bld) 14.6 % [facility] Neutrophils/100 WBC (Bld) 55.5 % [facility] RBC (Bld) [#/Vol] 3.48 10*6/uL Low 4.20 - 6.00 m/uL [facility] Specimen Type: BLOOD SPECIMEN [facility]ing [facility]: [facility] Address: [address] [place] [address] Original Ordering Provider: ROSELYN RAMIREZ [facility] CNOVSPon 08-13-2024 CNOVSP Normal [facility] CgA SerPl-mCncon 08-13-2024 Chromogranin A [Mass/Vol] 200.4 ng/mL High <187.0 [facility] Comment on above: Order Comment: Speci men Type: BLOOD SPECIMENOrdering Facility: [facility] Address: [address] [place] [address] Result Comment: The Chromogranin A test was performed using the [employer] CgA II KRYPTOR method. Results obtained with different assay methods or kits cannot be used interchangeably. Performed By: #### 9 811-1 ####[facility] LABCLIA [id number] [place] [address] [place] Comprehensive metabolic 2000 panelon 08-13-2024 Albumin [Mass/Vol] 4.1 g/dL Normal 3.9-4.9 [facility] Comment on above: Order Comment: Speci men Type: BLOOD SPECIMENOrdering Facility: [facility] Address: [address] [place] [address] Performed By: #### 2 4323-8 ####[facility] LABCLIA [id number] [place] [address] ALP [Catalytic activity/Vol] 118 U/L High 38-113 [facility] Comment on above: Order Comment: Speci men Type: BLOOD SPECIMENOrdering Facility: [facility] Address: [address] [place] [address] Performed By: #### 2 4323-8 ####[facility] LABCLIA [id number] [place] [address] ALT [Catalytic activity/Vol] 13 U/L Normal 10-54 [facility] Comment on above: Order Comment: Speci men Type: BLOOD SPECIMENOrdering Facility: [facility] Address: [address] [place] [address] Performed By: #### 2 4323-8 ####[facility] LABCLIA [id number] [place] [address] Anion gap [Moles/Vol] 9 mmol/L Normal 8-15 [facility] Comment on above: Order Comment: Speci men Type: BLOOD SPECIMENOrdering Facility: [facility] Address: [address] [place] [address] Performed By: #### 2 4323-8 ####[facility] LABCLIA [id number] [place] [address] AST [Catalytic activity/Vol] 20 U/L Normal 14-40 [facility] Comment on above: Order Comment: Speci men Type: BLOOD SPECIMENOrdering Facility: [facility] Address: [address] [place] [address] Performed By: #### 2 4323-8 ####[facility] LABCLIA [id number] [place] [address] Bilirubin [Mass/Vol] 0.3 mg/dL Normal 0.2-1.3 [facility] Comment on above: Order Comment: Speci men Type: BLOOD SPECIMENOrdering Facility: [facility] Address: [address] [place] [address] Performed By: #### 2 4323-8 ####[facility] LABCLIA [id number] [place] [address] Calcium [Mass/Vol] 8.4 mg/dL Low 8.5-10.2 [facility] Comment on above: Order Comment: Speci men Type: BLOOD SPECIMENOrdering Facility: [facility] Address: [address] [place] [address] Performed By: #### 2 4323-8 ####[facility] LABCLIA [id number] [place] [address] Chloride [Moles/Vol] 108 mmol/L High 98-107 [facility] Comment on above: Order Comment: Speci men Type: BLOOD SPECIMENOrdering Facility: [facility] Address: [address] [place] [address] Performed By: #### 2 4323-8 ####[facility] LABCLIA [id number] [place] [address] CO2 [Moles/Vol] 22 mmol/L Normal 22-30 [facility] Comment on above: Order Comment: Speci men Type: BLOOD SPECIMENOrdering Facility: [facility] Address: [address] [place] [address] Performed By: #### 2 4323-8 ####[facility] LABCLIA [id number] [place] [address] Creatinine [Mass/Vol] 1.03 mg/dL Normal 0.73-1.22 [facility] Comment on above: Order Comment: Speci men Type: BLOOD SPECIMENOrdering Facility: [facility] Address: [address] [place] [address] Performed By: #### 2 4323-8 ####[facility] LABCLIA [id number] [place] [address] Creatinine and Glomerular filtration rate.predicted panel (S/P/Bld) 79 mL/min/1.73m??? Normal >=60 [facility] Comment on above: Order Comment: Arben suarez Type: BLOOD SPECIMENOrdering Facility: [facility] Address: [address] [place] [address] Result Comment: Bailey mated Glomerular Filtration Rate [...] reflect actual GFR. Performed By: #### 2 4323-8 ####[facility] LABCLIA [id number] [place] [address] Glucose [Mass/Vol] 99 mg/dL Normal 74-99 [facility] Comment on above: Order Comment: Arben suarez Type: BLOOD SPECIMENOrdering Facility: [facility] Address: [address] [place] [address] Result Comment: The [place] Diabetes Association (ADA) provides guidance for cutoff [...] Standards of Medical Care in Diabetes 2016, [place] [employer]. Diabetes Care. 2016.39(Suppl 1). Performed By: #### 2 4323-8 ####[facility] LABCLIA [id number] [place] [address] Potassium [Moles/Vol] 5.0 mmol/L Normal 3.7-5.1 [facility] Comment on above: Order Comment: Arben suarez Type: BLOOD SPECIMENOrdering Facility: [facility] Address: [address] [place] [address] Performed By: #### 2 4323-8 ####[facility] LABCLIA [id number] [place] [address] Protein [Mass/Vol] 6.4 g/dL Normal 6.3-8.0 [facility] Comment on above: Order Comment: Speci men Type: BLOOD SPECIMENOrdering Facility: [facility] Address: [address] [place] [address] Performed By: #### 2 4323-8 ####[facility] LABCLIA [id number] [place] [address] Sodium [Moles/Vol] 139 mmol/L Normal 136-144 [facility] Comment on above: Order Comment: Speci men Type: BLOOD SPECIMENOrdering Facility: [facility] Address: [address] [place] [address] Performed By: #### 2 4323-8 ####[facility] LABCLIA [id number] [place] [address] Urea nitrogen [Mass/Vol] 18 mg/dL Normal 9-24 [facility] Comment on above: Order Comment: Speci men Type: BLOOD SPECIMENOrdering Facility: [facility] Address: [address] [place] [address] Performed By: #### 2 4323-8 ####[facility] LABCLIA [id number] [place] [address] Gastrin [facility] 024 Gastrin [Mass/Vol] 50.5 pg/mL Normal <115.0 [facility] Comment on above: Order Comment: Speci men Type: BLOOD SPECIMENOrdering Facility: [facility] Address: [address] [place] [address] Result Comment: The Gastrin test was performed using the Siemens Immulite chemiluminescent immunometric method. Results obtained with different assay methods or kits cannot be used interchangeably. Performed By: #### 2 333-3 ####[facility] LABCLIA [id number] [place] [id number] [place] SEROTONIN BLDon 08-13-2024 SEROTONIN SERUM 1800 ng/mL High 50-220 [facility] Comment on above: Order Comment: Speci men Type: BLOOD SPECIMENOrdering Facility: [facility] Address: [address] [place] [address] Result Comment: TEST INFORMATION: Serotonin, SerumThis test was developed and its performance characteristicsdetermined by [employer]. It has not been cleared orapproved by the [place] Food and Drug Administration. This test wasperformed in a CLIA certified laboratory and is intended forclinical purposes.Performed By: [employer] [address] [place] [address] [id number] Director: Santosh Hollis MD, PhDCLIA Number: [id number] Performed By: #### S ERTON ####[facility] SOUTHIA [id number] [place] [id number] VASOACTIVE INTESTINAL POLYPE PTIDE (VIP), PLASMAon 08-13-2024 VASOACTIVE INTESTINAL POLYPEPTIDE 24.1 pg/mL Normal 0.0-89.1 [facility] Comment on above: Order Comment: Speci men Type: BLOOD SPECIMENOrdering Facility: [facility] Address: [address] [place] [address] Result Comment: This test was developed and its performance characteristicsdetermined by [employer]. It has not been cleared orapproved by the U.S. Food and Drug Administration. This test wasperformed in a CLIA-certified laboratory and is intended forclinical purposes.Performed By: [facility] [facility] [address] [place] [address] [id number] Director: Santosh Hollis MD, PhDCLIA Number: [id number] Performed By: #### V IP ####[facility] [employer] [id number] [place] [address] CNPNon 08-11-2024 CNPN Normal [facility] NM PET/CT NEUROENDOCRINE WBo n 08-03-2024 NM PET/CT NEUROENDOCRINE WB Normal [facility] SEROTONIN BLDon 07-14-20 24 [facility] SEROTONIN SERUM 1536 ng/mL High 50 - 220 ng/mL [facility] Comment on above: TEST INFORMATION: Se rotonin, Serum This test was developed and its performance characteristics determined by [employer]. It has not been cleared or approved by the [place] Food and Drug Administration. This test was performed in a CLIA certified laboratory and is intended for clinical purposes. Performed By: [facility] [address] [place], [place] [id number] [employer] Assistant: Santosh Hollis MD, PhD CLIA Number: [id number] Interpretation and review of laboratory results Abnormal [facility] Healthcare Specimen Type: BLOOD SPECIMEN Ordering Facility[facility] Address: [address] [place] [address] Original Ordering Provider: [facility] ALL VASOACTIVE INTESTINAL PE PTIDEon 07-12-2024 VASOACTIVE INTESTINAL POLYPEPTIDE 24.7 pg/mL 0.0 - 89.1 pg/mL [facility] Comment on above: This test was develo ped and its performance characteristics determined by [employer]. It has not been cleared or approved by the U.S. Food and Drug Administration. This test was performed in a CLIA-certified laboratory and is intended for clinical purposes. Performed By: [facility] [address] [place] [address] Promotional Advertising Assistant: Santosh Hollis MD, PhD CLIA Number: [id number] Specimen Type: BLOOD SPECIMEN [facility]: [facility] Address: [address] [place] [address] Original Ordering Provider: [facility] CGA SERPL-MCNCon 024 [facility] CGA SERPL-MCNC 213.9 ng/mL High NINF - 187.0 ng/mL [facility] Comment on above: The Chromogranin A t est was performed using the [employer] CgA II KRYPTOR method. Results obtained with different assay methods or kits cannot be used interchangeably. Interpretation and review of laboratory results Abnormal [facility] Healthcare Specimen Type: BLOOD SPECIMEN Ordering Facility: [facility] Address: [address] [place] [address] Original Ordering Provider: [facility] GASTRIN SERPL-MCNCon [facility] GASTRIN SERPL-MCNC 53.7 pg/mL NINF - 115.0 pg/mL [facility] Comment on above: The Gastrin test was performed using the Siemens Immulite chemiluminescent immunometric method. Results obtained with different assay methods or kits cannot be used interchangeably. Specimen Type: BLOOD SPECIMEN Ordering Facility: [facility] Address: [address] [place] [address] Original Ordering Provider: ROSELYN RAMIREZ [facility] CBC W Auto Differential pane l (Bld)on 07-08-2024 Basophils (Bld) [#/Vol] 0.05 10*3/uL Normal <0.11 [facility] Comment on above: Order Comment: Speci men Type: BLOOD SPECIMENOrdering Facility: [facility] Address: [address] [place] [address] Performed By: #### 5 7021-8 ####[facility] LABCLIA [id number] [place] [address] Basophils/100 WBC (Bld) 0.9 % Normal C [facility] Comment on above: Order Comment: Speci men Type: BLOOD SPECIMENOrdering Facility: [facility] Address: [address] [place] [address] Performed By: #### 5 7021-8 ####[facility] LABCLIA [id number] [place] [address] Differential cell count method Nom (Bld) Auto Normal [facility] Comment on above: Order Comment: Speci men Type: BLOOD SPECIMENOrdering Facility: [facility] Address: [address] [place] [address] Performed By: #### 5 7021-8 ####[facility] LABCLIA [id number] [place] [address] Eosinophils (Bld) [#/Vol] 0.34 10*3/uL Normal <0.46 [facility] Comment on above: Order Comment: Speci men Type: BLOOD SPECIMENOrdering Facility: [facility] Address: [address] [place] [address] Performed By: #### 5 7021-8 ####[facility] LABCLIA [id number] [place] [address] Eosinophils/100 WBC (Bld) 6.4 % Normal [facility] Comment on above: Order Comment: Speci men Type: BLOOD SPECIMENOrdering Facility: [facility] Address: [address] [place] [address] Performed By: #### 5 7021-8 ####[facility] LABCLIA [id number] [place] [address] Erythrocyte distribution width (RBC) [Ratio] 12.3 % Normal 11.5-15.0 [facility] Comment on above: Order Comment: Speci men Type: BLOOD SPECIMENOrdering Facility: [facility] Address: [address] [place] [address] Performed By: #### 5 7021-8 ####[facility] LABCLIA [id number] [place] [address] Hematocrit (Bld) [Volume fraction] 32.2 % Low 39.0-51.0 [facility] Comment on above: Order Comment: Speci men Type: BLOOD SPECIMENOrdering Facility: [facility] Address: [address] [place] [address] Performed By: #### 5 7021-8 ####[facility] LABCLIA [id number] [place] [address] Hemoglobin (Bld) [Mass/Vol] 11.0 g/dL Low 13.0-17.0 [facility] Comment on above: Order Comment: Speci men Type: BLOOD SPECIMENOrdering Facility: [facility] Address: [address] [place] [address] Performed By: #### 5 7021-8 ####[facility] LABCLIA [id number] [place] [address] Immature granulocytes (Bld) [#/Vol] 0.05 10*3/uL Normal <0.10 [facility] Comment on above: Order Comment: Speci men Type: BLOOD SPECIMENOrdering Facility: [facility] Address: [address] [place] [address] Performed By: #### 5 7021-8 ####[facility] LABCLIA [id number] [place] [address] Immature granulocytes/100 WBC (Bld) 0.9 % Normal [facility] Comment on above: Order Comment: Speci men Type: BLOOD SPECIMENOrdering Facility: [facility] Address: [address] [place] [address] Performed By: #### 5 7021-8 ####[facility] LABIA [id number] [place] [address] Lymphocytes (Bld) [#/Vol] 0.65 10*3/uL Low 1.00-4.00 [facility] Comment on above: Order Comment: Speci men Type: BLOOD SPECIMENOrdering Facility: [facility] Address: [address] [place] [address] Performed By: #### 5 7021-8 ####[facility] LABIA [id number] [place] [address] Lymphocytes/100 WBC (Bld) 12.2 % Normal [facility] Comment on above: Order Comment: Speci men Type: BLOOD SPECIMENOrdering Facility: [facility] Address: [address] [place] [address] Performed By: #### 5 7021-8 ####[facility] LABCLIA [id number] [place] [id number] MCH (RBC) [Entitic mass] 32.4 pg Normal 26.0-34.0 [facility] Comment on above: Order Comment: Speci men Type: BLOOD SPECIMENOrdering Facility: [facility] Address: [address] [place] [address] Performed By: #### 5 7021-8 ####[facility] LABCLIA [id number] [place] [address] MCHC (RBC) [Mass/Vol] 34.2 g/dL Normal 30.5-36.0 [facility] Comment on above: Order Comment: Speci men Type: BLOOD SPECIMENOrdering Facility: [facility] Address: [address] [place], [place] [address] Performed By: #### 5 7021-8 ####[facility] LABCLIA [id number] [place] [address] MCV (RBC) [Entitic vol] 95.0 fL Normal 80.0-100.0 [facility] Comment on above: Order Comment: Speci men Type: BLOOD SPECIMENOrdering Facility: [facility] Address: [address] [place], [place] [address] Performed By: #### 5 7021-8 ####[facility] LABCLIA [id number] [place] [address] Monocytes (Bld) [#/Vol] 0.67 10*3/uL Normal <0.87 [facility] Comment on above: Order Comment: Speci men Type: BLOOD SPECIMENOrdering Facility: [facility] Address: [address] [place] [address] Performed By: #### 5 7021-8 ####[facility] LABCLIA [id number] [place] [address] Monocytes/100 WBC (Bld) 12.6 % Normal C [facility] Comment on above: Order Comment: Speci men Type: BLOOD SPECIMENOrdering Facility: [facility] Address: [address] [place], [place] [address] Performed By: #### 5 7021-8 ####[facility] LABCLIA [id number] [place] [address] Neutrophils (Bld) [#/Vol] 3.56 10*3/uL Normal 1.45-7.50 [facility] Comment on above: Order Comment: Speci men Type: BLOOD SPECIMENOrdering Facility: [facility] Address: [address] [place], [place] [address] Performed By: #### 5 7021-8 ####[facility] LABCLIA [id number] [place] [address] Neutrophils/100 WBC (Bld) 67.0 % Normal [facility] Comment on above: Order Comment: Speci men Type: BLOOD SPECIMENOrdering Facility: [facility] Address: [address] [place] [address] Performed By: #### 5 7021-8 ####[facility] LABCLIA [id number] [place] [address] Nucleated RBC (Bld) [#/Vol] 10*3/uL Normal <0.01 [facility] Comment on above: Order Comment: Speci men Type: BLOOD SPECIMENOrdering Facility: [facility] Address: [address] [place] [address] Performed By: #### 5 7021-8 ####[facility] LABCLIA [id number] [place] [address] Nucleated RBC/100 WBC (Bld) [Ratio] 0.0 /100 WBC Normal [facility] Comment on above: Order Comment: Speci men Type: BLOOD SPECIMENOrdering Facility: [facility] Address: [address] [place] [address] Performed By: #### 5 7021-8 ####[facility] LABCLIA [id number] [place] [address] Platelet mean volume (Bld) [Entitic vol] 10.7 fL Normal 9.0-12.7 [facility] Comment on above: Order Comment: Speci men Type: BLOOD SPECIMENOrdering Facility: [facility] Address: [address] [place] [address] Performed By: #### 5 7021-8 ####[facility] LABCLIA [id number] [place] [address] Platelets (Bld) [#/Vol] 193 10*3/uL Normal 150-400 [facility] Comment on above: Order Comment: Speci men Type: BLOOD SPECIMENOrdering Facility: [facility] Address: [address] [place] [address] Performed By: #### 5 7021-8 ####[facility] LABIA [id number] [place] [address] RBC (Bld) [#/Vol] 3.39 10*6/uL Low 4.20-6.00 [facility] Comment on above: Order Comment: Speci men Type: BLOOD SPECIMENOrdering Facility: [facility] Address: [address] [place] [address] Performed By: #### 5 7021-8 ####[facility] LABIA [id number] [place] [address] WBC (Bld) [#/Vol] 5.32 10*3/uL Normal 3.70-11.00 [facility] Comment on above: Order Comment: Speci men Type: BLOOD SPECIMENOrdering Facility: [facility] Address: [address] [place] [address] Performed By: #### 5 7021-8 ####[facility] LABIA [id number] [place] [address] [facility] CBC W AUTO DIFF BLDon Basophils/100 WBC (Bld) 0.9 % [facility] BASOPHILS # BLD AUTO 0.05 [facility] DIFFERENTIAL METHOD BLD Auto [facility] EOSINOPHIL # BLD AUTO 0.34 [facility] LYMPHOCYTES # BLD AUTO 0.65 Low [facility] MONOCYTES # BLD AUTO 0.67 [facility] NEUTROPHILS # BLD AUTO 3.56 [facility] NRBC # BLD AUTO <0.01 [facility] NRBC/100 WBC BLD-RTO 0 /100 WBC [facility] PLATELET # BLD AUTO [address] [facility] PMV BLD AUTO 10.7 fL 9.0 - 12.7 fL [facility] WBC # BLD AUTO 5.32 [facility] Eosinophils/100 WBC (Bld) 6.4 % [facility] Erythrocyte distribution width (RBC) [Ratio] 12.3 % 11.5 - 15.0 % [facility] Hematocrit (Bld) [Volume fraction] 32.2 % Low 39.0 - 51.0 % [facility] Hemoglobin (Bld) [Mass/Vol] 11 g/dL Low 13.0 - 17.0 g/dL [facility] IMM GRANULOCYTES # BLD AUTO 0.05 NINF [facility] IMM GRANULOCYTES/LEUK NFR BLD AUTO 0.9 % [facility] Interpretation and review of laboratory results Abnormal [facility] Lymphocytes/100 WBC (Bld) 12.2 % [facility] MCH (RBC) [Entitic mass] 32.4 pg 26.0 - 34.0 pg [facility] MCHC (RBC) [Mass/Vol] 34.2 g/dL 30.5 - 36.0 g/dL [facility] MCV (RBC) [Entitic vol] 95 fL 80.0 - 100.0 fL [facility] Monocytes/100 WBC (Bld) 12.6 % [facility] Neutrophils/100 WBC (Bld) 67 % [facility] RBC (Bld) [#/Vol] 3.39 10*6/uL Low 4.20 - 6.00 m/uL [facility] Specimen Type: BLOOD SPECIMEN [facility] Address: [address] [place] [address] Original Ordering Provider: ROSELYN RAMIREZ [facility] COMP METAB 1999 PNL SERP Jefry 07-08-2024 Albumin [Mass/Vol] 4.1 g/dL 3.9 - 4.9 g/dL [facility] ALP [Catalytic activity/Vol] 126 U/L High 38 - 113 U/L [facility] ALT [Catalytic activity/Vol] 13 U/L 10 - 54 U/L [facility] Anion gap [Moles/Vol] 11 mmol/L 8 - 15 mmol/L [facility] Calcium [Mass/Vol] 8.7 mg/dL 8.5 - 10. 2 mg/dL [facility] AST SERPL-CCNC 25 U/L 14 - 40 U/L [facility] BILIRUB SERPL-MCNC 0.5 mg/dL 0.2 - 1.3 mg/dL [facility] PROT SERPL-MCNC 7 g/dL 6.3 - 8. 0 g/dL [facility] Chloride [Moles/Vol] 104 mmol/L 98 - 10 7 mmol/L [facility] CO2 [Moles/Vol] 20 mmol/L Low 22 - 30 mmol/L [facility] Creatinine [Mass/Vol] 1.04 mg/dL 0.73 - 1.22 mg/dL [facility] GFR/1.73 sq M.predicted CKD-EPI (S/P/Bld) [Vol rate/Area] 78 - PINF [facility] Comment on above: Estimated Glomerular Filtration Rate (eGFR) is calculated using the 2020 CKD-EPI creatinine equation. This equation utilizes serum creatinine, sex, and age as parameters. The creatinine assay has traceable calibration to isotope dilution-mass spectrometry. Refer to KDIGO guidelines for clinical interpretation. In patients with unstable renal function, e.g. those with acute kidney injury, the eGFR may not accurately reflect actual GFR. Glucose [Mass/Vol] 108 mg/dL High 74 - 99 mg/dL [facility] Comment on above: The [place] Diabete s Association (ADA) provides guidance for cutoff values [...] Standards of Medical Care in Diabetes 2016, [place] Diabetes Association. Diabetes Care. 2016.39(Suppl 1). Interpretation and review of laboratory results Abnormal [facility] Potassium [Moles/Vol] 4.4 mmol/L 3.7 - 5.1 mmol/L [facility] Sodium [Moles/Vol] 135 mmol/L Low 136 - 144 mmol/L [facility] Urea nitrogen [Mass/Vol] 25 mg/dL High 9 - 24 mg/dL [facility] Specimen Type: BLOOD SPECIMEN [facility]: [facility] Address: [address] [place] [address] Original Ordering Provider: ROSELYN LEONARD [facility] CNOVSPon 07-08-2024 CNOVSP Normal [facility] CNPNon 07-08-2024 CNPN Normal [facility] CgA SerPl-mCncon 07-08-2024 Chromogranin A [Mass/Vol] 213.9 ng/mL High <187.0 [facility] Comment on above: Order Comment: Speci men Type: BLOOD SPECIMENOrdering Facility: [facility] Address: [address] [place] [address] Result Comment: The Chromogranin A test was performed using the [employer] CgA II KRYPTOR method. Results obtained with different assay methods or kits cannot be used interchangeably. Performed By: #### 9 811-1 ####[facility] LABCLIA [id number] [address] OF [facility] Comprehensive metabolic 2000 panelon 07-08-2024 Albumin [Mass/Vol] 4.1 g/dL Normal 3.9-4.9 [facility] Comment on above: Order Comment: Speci men Type: BLOOD SPECIMENOrdering Facility: [facility] Address: [address] [place] [address] Performed By: #### 2 4323-8 ####[facility] LABCLIA [id number] [place] [address] ALP [Catalytic activity/Vol] 126 U/L High 38-113 [facility] Comment on above: Order Comment: Speci men Type: BLOOD SPECIMENOrdering Facility: [facility] Address: [address] [place] [address] Performed By: #### 2 4323-8 ####[facility] LABCLIA [id number] [place] [address] ALT [Catalytic activity/Vol] 13 U/L Normal 10-54 [facility] Comment on above: Order Comment: Speci men Type: BLOOD SPECIMENOrdering Facility: [facility] Address: [address] [place] [address] Performed By: #### 2 4323-8 ####[facility] LABCLIA [id number] [place] [address] Anion gap [Moles/Vol] 11 mmol/L Normal 8-15 [facility] Comment on above: Order Comment: Speci men Type: BLOOD SPECIMENOrdering Facility: [facility] Address: [address] [place] [address] Performed By: #### 2 4323-8 ####[facility] LABCLIA [id number] [place] [address] AST [Catalytic activity/Vol] 25 U/L Normal 14-40 [facility] Comment on above: Order Comment: Speci men Type: BLOOD SPECIMENOrdering Facility: [facility] Address: [address] [place] [address] Performed By: #### 2 4323-8 ####[facility] LABCLIA [id number] [place] [address] Bilirubin [Mass/Vol] 0.5 mg/dL Normal 0.2-1.3 [facility] Comment on above: Order Comment: Speci men Type: BLOOD SPECIMENOrdering Facility: [facility] Address: [address] [place] [address] Performed By: #### 2 4323-8 ####[facility] LABCLIA [id number] [place] [address] Calcium [Mass/Vol] 8.7 mg/dL Normal 8.5-10.2 [facility] Comment on above: Order Comment: Speci men Type: BLOOD SPECIMENOrdering Facility: [facility] Address: [address] [place] [address] Performed By: #### 2 4323-8 ####[facility] LABCLIA [id number] [place] [address] Chloride [Moles/Vol] 104 mmol/L Normal 98-107 [facility] Comment on above: Order Comment: Speci men Type: BLOOD SPECIMENOrdering Facility: [facility] Address: [address] [place] [address] Performed By: #### 2 4323-8 ####[facility] LABCLIA [id number] [place] [address] CO2 [Moles/Vol] 20 mmol/L Low 22-30 [facility] Comment on above: Order Comment: Speci men Type: BLOOD SPECIMENOrdering Facility: [facility] Address: [address] [place] [address] Performed By: #### 2 4323-8 ####[facility] LABCLIA [id number] [place] [address] Creatinine [Mass/Vol] 1.04 mg/dL Normal 0.73-1.22 [facility] Comment on above: Order Comment: Speci men Type: BLOOD SPECIMENOrdering Facility: [facility] Address: [address] [place] [address] Performed By: #### 2 4323-8 ####[facility] LABCLIA [id number] [place] [address] Creatinine and Glomerular filtration rate.predicted panel (S/P/Bld) 78 mL/min/1.73m??? Normal >=60 [facility] Comment on above: Order Comment: Speci men Type: BLOOD SPECIMENOrdering Facility: [facility] Address: [address] [place] [address] Result Comment: Bailey mated Glomerular Filtration Rate [...] reflect actual GFR. Performed By: #### 2 4323-8 ####[facility] LABCLIA [id number] [place] [address] Glucose [Mass/Vol] 108 mg/dL High 74-99 [facility] Comment on above: Order Comment: Speci men Type: BLOOD SPECIMENOrdering Facility: [facility] Address: [address] [place] [address] Result Comment: The [place] Diabetes Association (ADA) provides guidance for cutoff [...] Standards of Medical Care in Diabetes 2016, [place] Diabetes Association. Diabetes Care. 2016.39(Suppl 1). Performed By: #### 2 4323-8 ####[facility] LABCLIA [id number] [place] [address] Potassium [Moles/Vol] 4.4 mmol/L Normal 3.7-5.1 [facility] Comment on above: Order Comment: Speci men Type: BLOOD SPECIMENOrdering Facility: [facility] Address: [address] [place], [place] [address] Performed By: #### 2 4323-8 ####[facility] LABCLIA [id number] [place] [address] Protein [Mass/Vol] 7.0 g/dL Normal 6.3-8.0 [facility] Comment on above: Order Comment: Speci men Type: BLOOD SPECIMENOrdering Facility: [facility] Address: [address] [place] [address] Performed By: #### 2 4323-8 ####[facility] LABCLIA [id number] [place] [address] Sodium [Moles/Vol] 135 mmol/L Low 136-144 [facility] Comment on above: Order Comment: Speci men Type: BLOOD SPECIMENOrdering Facility: [facility] Address: [address] [place] [address] Performed By: #### 2 4323-8 ####[facility] LABCLIA [id number] [place] [address] Urea nitrogen [Mass/Vol] 25 mg/dL High 9-24 [facility] Comment on above: Order Comment: Speci men Type: BLOOD SPECIMENOrdering Facility: [facility] Address: [address] [place] [address] Performed By: #### 2 4323-8 ####[facility] LABCLIA [id number] [place] [address] Gastrin SerPl-ncon 024 Gastrin [Mass/Vol] 53.7 pg/mL Normal <115.0 [facility] Comment on above: Order Comment: Speci men Type: BLOOD SPECIMENOrdering Facility: [facility] Address: [address] [place] [address] Result Comment: The Gastrin test was performed using the Siemens Immulite chemiluminescent immunometric method. Results obtained with different assay methods or kits cannot be used interchangeably. Performed By: #### 2 333-3 ####[facility] LABCLIA [id number] [place] [address] [place] SEROTONIN BLDon 07-08-2024 SEROTONIN SERUM 1536 ng/mL High 50-220 [facility] Comment on above: Order Comment: Speci men Type: BLOOD SPECIMENOrdering Facility: [facility] Address: [address] [place] [address] Result Comment: TEST INFORMATION: Serotonin, SerumThis test was developed and its performance characteristicsdetermined by [facility]. It has not been cleared orapproved by the [place] Food and Drug Administration. This test wasperformed in a CLIA certified laboratory and is intended forclinical purposes.Performed By: [facility] [place] [id number] Director: Santosh Hollis MD, PhDCLIA Number: [id number] Performed By: #### S ERTON ####[facility] S[facility]THIA [id number] [place] [address] VASOACTIVE INTESTINAL POLYPE PTIDE (VIP), PLASMAon 07-08-2024 VASOACTIVE INTESTINAL POLYPEPTIDE 24.7 pg/mL Normal 0.0-89.1 [facility] Comment on above: Order Comment: Speci men Type: BLOOD SPECIMENOrdering Facility: [facility] Address: [facility] [place] [address] Result Comment: This test was developed and its performance characteristicsdetermined by [facility]. It has not been cleared orapproved by the U.S. Food and Drug Administration. This test wasperformed in a CLIA-certified laboratory and is intended forclinical purposes.Performed By: [facility] [place], [place] [address]Euezysivpw Director: Santosh Hollis MD, PhDCLIA Number: [id number] Performed By: #### V IP ####[facility] S[facility] [id number] [place] [address] GASTRIN BLDon 06-04-2024 Gastrin [Mass/Vol] 21.7 pg/mL [facility] - 115.0 pg/mL [facility] Comment on above: The Gastrin test was performed using the Siemens Immulite chemiluminescent immunometric method. Results obtained with different assay methods or kits cannot be used interchangeably. Gastrin [Mass/Vol]on 024 Interpretation and review of laboratory results Normal [facility] CBC W Auto Differential pane l (Bld)on 06-03-2024 Basophils (Bld) [#/Vol] 0.05 10*3/uL [facility] Differential cell count method Nom (Bld) Auto [facility] Eosinophils (Bld) [#/Vol] 0.43 10*3/uL [facility] Immature granulocytes (Bld) [#/Vol] 0.03 10*3/uL [facility] Immature granulocytes/100 WBC (Bld) 0.6 % [facility] Lymphocytes (Bld) [#/Vol] 0.80 10*3/uL Low [facility] Monocytes (Bld) [#/Vol] 0.69 10*3/uL [facility] Neutrophils (Bld) [#/Vol] 2.82 10*3/uL [facility] Nucleated RBC (Bld) [#/Vol] [facility] Nucleated RBC/100 WBC (Bld) [Ratio] 0.0 % /100 WBC [facility] Platelet mean volume (Bld) [Entitic vol] 10.2 fL 9.0 - 12.7 fL [facility] Platelets (Bld) [#/Vol] 254 10*3/uL [facility] WBC (Bld) [#/Vol] 4.82 10*3/uL [facility] Basophils (Bld) [#/Vol] 0.05 10*3/uL Normal <0.11 [facility] Comment on above: Order Comment: Speci men Type: BLOOD SPECIMENOrdering Facility: [facility] Address: [address] [place] [address] Performed By: #### 5 7021-8 ####[facility] LABCLIA [id number] [place] [address] Basophils/100 WBC (Bld) 1.0 % Normal C [facility] Comment on above: Order Comment: Speci men Type: BLOOD SPECIMENOrdering Facility: [facility] Address: [address] [place] [address] Performed By: #### 5 7021-8 ####[facility] LABCLIA [id number] [place] [address] Differential cell count method Nom (Bld) Auto Normal [facility] Comment on above: Order Comment: Speci men Type: BLOOD SPECIMENOrdering Facility: [facility] Address: [address] [place] [address] Performed By: #### 5 7021-8 ####[facility] LABIA [id number] [place] [address] Eosinophils (Bld) [#/Vol] 0.43 10*3/uL Normal <0.46 [facility] Comment on above: Order Comment: Speci men Type: BLOOD SPECIMENOrdering Facility: [facility] Address: [address] [place] [address] Performed By: #### 5 7021-8 ####[facility] LABCLIA [id number] [place] [address] Eosinophils/100 WBC (Bld) 8.9 % Normal [facility] Comment on above: Order Comment: Speci men Type: BLOOD SPECIMENOrdering Facility: [facility] Address: [address] [place] [address] Performed By: #### 5 7021-8 ####[facility] LABCLIA [id number] [place] [address] Erythrocyte distribution width (RBC) [Ratio] 13.1 % Normal 11.5-15.0 [facility] Comment on above: Order Comment: Speci men Type: BLOOD SPECIMENOrdering Facility: [facility] Address: [address] [place] [address] Performed By: #### 5 7021-8 ####[facility] LABCLIA [id number] [place] [address] Hematocrit (Bld) [Volume fraction] 37.1 % Low 39.0-51.0 [facility] Comment on above: Order Comment: Speci men Type: BLOOD SPECIMENOrdering Facility: [facility] Address: [address] [place] [address] Performed By: #### 5 7021-8 ####[facility] LABCLIA [id number] [place] [address] Hemoglobin (Bld) [Mass/Vol] 12.5 g/dL Low 13.0-17.0 [facility] Comment on above: Order Comment: Speci men Type: BLOOD SPECIMENOrdering Facility: [facility] Address: [address] [place] [address] Performed By: #### 5 7021-8 ####[facility] LABCLIA [id number] [place] [address] Immature granulocytes (Bld) [#/Vol] 0.03 10*3/uL Normal <0.10 [facility] Comment on above: Order Comment: Speci men Type: BLOOD SPECIMENOrdering Facility: [facility] Address: [address] [place] [address] Performed By: #### 5 7021-8 ####[facility] LABCLIA [id number] [place] [address] Immature granulocytes/100 WBC (Bld) 0.6 % Normal [facility] Comment on above: Order Comment: Speci men Type: BLOOD SPECIMENOrdering Facility: [facility] Address: [address] [place] [address] Performed By: #### 5 7021-8 ####[facility] LABCLIA [id number] [place] [address] Lymphocytes (Bld) [#/Vol] 0.80 10*3/uL Low 1.00-4.00 [facility] Comment on above: Order Comment: Speci men Type: BLOOD SPECIMENOrdering Facility: [facility] Address: [address] [place] [address] Performed By: #### 5 7021-8 ####[facility] LABCLIA [id number] [place] [address] Lymphocytes/100 WBC (Bld) 16.6 % Normal [facility] Comment on above: Order Comment: Speci men Type: BLOOD SPECIMENOrdering Facility: [facility] Address: [address] [place] [address] Performed By: #### 5 7021-8 ####[facility] LABCLIA [id number] [place] [address] MCH (RBC) [Entitic mass] 32.2 pg Normal 26.0-34.0 [facility] Comment on above: Order Comment: Speci men Type: BLOOD SPECIMENOrdering Facility: [facility] Address: [address] [place] [address] Performed By: #### 5 7021-8 ####[facility] LABCLIA [id number] [place] [address] MCHC (RBC) [Mass/Vol] 33.7 g/dL Normal 30.5-36.0 [facility] Comment on above: Order Comment: Speci men Type: BLOOD SPECIMENOrdering Facility: [facility] Address: [address] [place] [address] Performed By: #### 5 7021-8 ####[facility] LABCLIA [id number] [place] [address] MCV (RBC) [Entitic vol] 95.6 fL Normal 80.0-100.0 [facility] Comment on above: Order Comment: Speci men Type: BLOOD SPECIMENOrdering Facility: [facility] Address: [address] [place] [address] Performed By: #### 5 7021-8 ####[facility] LABCLIA [id number] [place] [address] Monocytes (Bld) [#/Vol] 0.69 10*3/uL Normal <0.87 [facility] Comment on above: Order Comment: Speci men Type: BLOOD SPECIMENOrdering Facility: [facility] Address: [address] [place] [address] Performed By: #### 5 7021-8 ####[facility] LABCLIA [id number] [place] [address] Monocytes/100 WBC (Bld) 14.3 % Normal [facility] Comment on above: Order Comment: Speci men Type: BLOOD SPECIMENOrdering Facility: [facility] Address: [address] [place] [address] Performed By: #### 5 7021-8 ####[facility] LABCLIA [id number] [place] [address] Neutrophils (Bld) [#/Vol] 2.82 10*3/uL Normal 1.45-7.50 [facility] Comment on above: Order Comment: Speci men Type: BLOOD SPECIMENOrdering Facility: [facility] Address: [address] [place] [address] Performed By: #### 5 7021-8 ####[facility] LABCLIA [id number] [place] [address] Neutrophils/100 WBC (Bld) 58.6 % Normal [facility] Comment on above: Order Comment: Speci men Type: BLOOD SPECIMENOrdering Facility: [facility] Address: [address] [place] [address] Performed By: #### 5 7021-8 ####[facility] LABCLIA [id number] [place] [address] Nucleated RBC (Bld) [#/Vol] 10*3/uL Normal <0.01 [facility] Comment on above: Order Comment: Speci men Type: BLOOD SPECIMENOrdering Facility: [facility] Address: [address] [place] [address] Performed By: #### 5 7021-8 ####[facility] LABCLIA [id number] [place] [address] Nucleated RBC/100 WBC (Bld) [Ratio] 0.0 /100 WBC Normal [facility] Comment on above: Order Comment: Speci men Type: BLOOD SPECIMENOrdering Facility: [facility] Address: [address] [place] [address] Performed By: #### 5 7021-8 ####[facility] LABCLIA [id number] [place] [address] Platelet mean volume (Bld) [Entitic vol] 10.2 fL Normal 9.0-12.7 [facility] Comment on above: Order Comment: Speci men Type: BLOOD SPECIMENOrdering Facility: [facility] Address: [address] [place] [address] Performed By: #### 5 7021-8 ####[facility] LABCLIA [id number] [place] [address] Platelets (Bld) [#/Vol] 254 10*3/uL Normal 150-400 [facility] Comment on above: Order Comment: Speci men Type: BLOOD SPECIMENOrdering Facility: [facility] Address: [address] [place] [address] Performed By: #### 5 7021-8 ####[facility] LABCLIA [id number] [place] [address] RBC (Bld) [#/Vol] 3.88 10*6/uL Low 4.20-6.00 [facility] Comment on above: Order Comment: Speci men Type: BLOOD SPECIMENOrdering Facility: [facility] Address: [address] [place] [address] Performed By: #### 5 7021-8 ####[facility] LABCLIA [id number] [place] [address] WBC (Bld) [#/Vol] 4.82 10*3/uL Normal 3.70-11.00 [facility] Comment on above: Order Comment: Speci men Type: BLOOD SPECIMENOrdering Facility: [facility] Address: [address] [place] [address] Performed By: #### 5 7021-8 ####[facility] LABCLIA [id number] [place] [address] [facility] CBC W AUTO DIFF BLDon [facility] BASOPHILS # BLD AUTO 0.05 [facility] DIFFERENTIAL METHOD BLD Auto [facility] EOSINOPHIL # BLD AUTO 0.43 [facility] LYMPHOCYTES # BLD AUTO 0.80 Low [facility] MONOCYTES # BLD AUTO 0.69 [facility] NEUTROPHILS # BLD AUTO 2.82 [facility] NRBC # BLD AUTO <0.01 [facility] NRBC/100 WBC BLD-RTO 0.0 /100 WBC [facility] PLATELET # BLD AUTO 254 [facility] PMV BLD AUTO 10.2 fL 9.0 - 12.7 fL [facility] WBC # BLD AUTO 4.82 [facility] IMM GRANULOCYTES # BLD AUTO 0.03 NINF [facility] IMM GRANULOCYTES/LEUK NFR BLD AUTO 0.6 % [facility] Specimen Type: BLOOD SPECIMEN [facility]: [facility] Address: [address] [place] [address] Original Ordering Provider: ROSELYN JUÁREZISYNC CNOVSPon 06-03-2024 CNOVSP Normal [facility] CNPNon 06-03-2024 CNPN Normal [facility] CgA SerPl-mCncon 06-03-2024 Chromogranin A [Mass/Vol] 137.7 ng/mL Normal <187.0 [facility] Comment on above: Order Comment: Speci men Type: BLOOD SPECIMENOrdering Facility: [facility] Address: [address] [place] [address] Result Comment: The Chromogranin A test was performed using the AlphaSmartS CgA II KRYPTOR method. Results obtained with different assay methods or kits cannot be used interchangeably. Performed By: #### 9 811-1 ####[facility] LABCLIA [id number] [place] [address] [place] Comprehensive metabolic 2000 panelOrdered By: Xin Camejo on 06-03-2024 Albumin [Mass/Vol] 4.5 g/dL 3.9 - 4.9 g/dL [facility] ALP [Catalytic activity/Vol] 135 U/L High 38 - 113 U/L [facility] ALT [Catalytic activity/Vol] 13 U/L 10 - 54 U/L [facility] Anion gap [Moles/Vol] 14 mmol/L 8 - 15 mmol/L [facility] AST [Catalytic activity/Vol] [facility] Comment on above: Unable to assay. Spe cimen significantly hemolyzed. Bilirubin [Mass/Vol] 0.9 mg/dL 0.2 - 1 .3 mg/dL [facility] Calcium [Mass/Vol] 9.0 mg/dL 8.5 - 10. 2 mg/dL [facility] Chloride [Moles/Vol] 103 mmol/L 98 - 10 7 mmol/L [facility] CO2 [Moles/Vol] 24 mmol/L 22 - 30 mmol/L [facility] Creatinine [Mass/Vol] 0.91 mg/dL 0.73 - 1.22 mg/dL [facility] GFR/1.73 sq M.predicted among non-blacks MDRD (S/P/Bld) [Vol rate/Area] 92 mL/min/{1.73_m2} - PINF [facility] Comment on above: Estimated Glomerular Filtration Rate (eGFR) is calculated using the 2020 CKD-EPI creatinine equation. This equation utilizes serum creatinine, sex, and age as parameters. The creatinine assay has traceable calibration to isotope dilution-mass spectrometry. Refer to KDIGO guidelines for clinical interpretation. In patients with unstable renal function, e.g. those with acute kidney injury, the eGFR may not accurately reflect actual GFR. Glucose [Mass/Vol] 100 mg/dL High 74 - 99 mg/dL [facility] Comment on above: The [place] Diabete s Association (ADA) provides guidance for cutoff values [...] Standards of Medical Care in Diabetes 2016, [place] Diabetes Association. Diabetes Care. 2016.39(Suppl 1). Interpretation and review of laboratory results Abnormal [facility] Potassium [Moles/Vol] 5.1 mmol/L 3.7 - 5.1 mmol/L [facility] Protein [Mass/Vol] 7.2 g/dL 6.3 - 8.0 g/dL [facility] Sodium [Moles/Vol] 141 mmol/L 136 - 144 mmol/L [facility] Urea nitrogen [Mass/Vol] 12 mg/dL 9 - 24 mg/dL [facility] Comprehensive metabolic 2000 panelon 06-03-2024 Albumin [Mass/Vol] 4.5 g/dL Normal 3.9-4.9 [facility] Comment on above: Order Comment: Speci men Type: BLOOD SPECIMENOrdering Facility: [facility] Address: [address] [place] [address] Performed By: #### 2 4323-8 ####[facility] LABCLIA [id number] [place] [address] ALP [Catalytic activity/Vol] 135 U/L High 38-113 [facility] Comment on above: Order Comment: Speci men Type: BLOOD SPECIMENOrdering Facility: [facility] Address: [address] [place] [address] Performed By: #### 2 4323-8 ####[facility] LABCLIA [id number] [place] [address] ALT [Catalytic activity/Vol] 13 U/L Normal 10-54 [facility] Comment on above: Order Comment: Speci men Type: BLOOD SPECIMENOrdering Facility: [facility] Address: [address] [place] [address] Performed By: #### 2 4323-8 ####[facility] LABCLIA [id number] [place] [address] Anion gap [Moles/Vol] 14 mmol/L Normal 8-15 [facility] Comment on above: Order Comment: Speci men Type: BLOOD SPECIMENOrdering Facility: [facility] Address: [address] [place] [address] Performed By: #### 2 4323-8 ####[facility] LABCLIA [id number] [place] [address] AST [Catalytic activity/Vol] Normal [facility] Comment on above: Order Comment: Speci men Type: BLOOD SPECIMENOrdering Facility: [facility] Address: [address] [place] [address] Result Comment: Unab le to assay. Specimen significantly hemolyzed. Performed By: #### 2 4323-8 ####[facility] LABCLIA [id number] [place] [address] Bilirubin [Mass/Vol] 0.9 mg/dL Normal 0.2-1.3 [facility] Comment on above: Order Comment: Speci men Type: BLOOD SPECIMENOrdering Facility: [facility] Address: [address] [place] [address] Performed By: #### 2 4323-8 ####[facility] LABCLIA [id number] [place] [address] Calcium [Mass/Vol] 9.0 mg/dL Normal 8.5-10.2 [facility] Comment on above: Order Comment: Speci men Type: BLOOD SPECIMENOrdering Facility: [facility] Address: [address] [place] [address] Performed By: #### 2 4323-8 ####[facility] LABCLIA [id number] [place] [address] Chloride [Moles/Vol] 103 mmol/L Normal 98-107 [facility] Comment on above: Order Comment: Speci men Type: BLOOD SPECIMENOrdering Facility: [facility] Address: [address] [place] [address] Performed By: #### 2 4323-8 ####[facility] LABCLIA [id number] [place] [address] CO2 [Moles/Vol] 24 mmol/L Normal 22-30 [facility] Comment on above: Order Comment: Speci men Type: BLOOD SPECIMENOrdering Facility: [facility] Address: [address] [place] [address] Performed By: #### 2 4323-8 ####[facility] LABCLIA [id number] [place] [address] Creatinine [Mass/Vol] 0.91 mg/dL Normal 0.73-1.22 [facility] Comment on above: Order Comment: Speci men Type: BLOOD SPECIMENOrdering Facility: [facility] Address: [address] [place] [address] Performed By: #### 2 4323-8 ####[facility] LABCLIA [id number] [place] [address] Creatinine and Glomerular filtration rate.predicted panel (S/P/Bld) 92 mL/min/1.73m??? Normal >=60 [facility] Comment on above: Order Comment: Arben suarez Type: BLOOD SPECIMENOrdering Facility: [facility] Address: [address] [place] [address] Result Comment: Bailey mated Glomerular Filtration Rate [...] reflect actual GFR. Performed By: #### 2 4323-8 ####[facility] LABCLIA [id number] [place] [address] Glucose [Mass/Vol] 100 mg/dL High 74-99 [facility] Comment on above: Order Comment: Arben suarez Type: BLOOD SPECIMENOrdering Facility: [facility] Address: [address] [place] [address] Result Comment: The [place] Diabetes Association (ADA) provides guidance for cutoff [...] Standards of Medical Care in Diabetes 2016, [place] Diabetes Association. Diabetes Care. 2016.39(Suppl 1). Performed By: #### 2 4323-8 ####[facility] LABCLIA [id number] [place] [address] Potassium [Moles/Vol] 5.1 mmol/L Normal 3.7-5.1 [facility] Comment on above: Order Comment: Speci men Type: BLOOD SPECIMENOrdering Facility: [facility] Address: [address] [place] [address] Performed By: #### 2 4323-8 ####[facility] LABCLIA [id number] [place] [address] Protein [Mass/Vol] 7.2 g/dL Normal 6.3-8.0 [facility] Comment on above: Order Comment: Speci men Type: BLOOD SPECIMENOrdering Facility: [facility] Address: [address] [place] [address] Performed By: #### 2 4323-8 ####[facility] LABCLIA [id number] [place] [address] Sodium [Moles/Vol] 141 mmol/L Normal 136-144 [facility] Comment on above: Order Comment: Speci men Type: BLOOD SPECIMENOrdering Facility: [facility] Address: [address] [place] [address] Performed By: #### 2 4323-8 ####[facility] LABCLIA [id number] [place] [address] Urea nitrogen [Mass/Vol] 12 mg/dL Normal 9-24 [facility] Comment on above: Order Comment: Speci men Type: BLOOD SPECIMENOrdering Facility: [facility] Address: [address] [place] [address] Performed By: #### 2 4323-8 ####[facility] LABCLIA [id number] [place] [address] GLUCOSE, BLOOD (POC)on 06-03 Glucose [Mass/Vol] 99 mg/dL 74 - 99 mg/dL [facility] Comment on above: Location:[facility], [address] [place] [address] , [place], [place], [address] The Accu-Chek Inform II glucose meter has not been approved for testing on patients receiving intensive medical intervention or therapy and results from this point of care glucose test should not be used for patient management decisions in these cases. Inaccurate results may also occur from other interfering factors, such as N-acetylcysteine (blood concentrations of greater than 5mg/dL), galactose, extremes of hematocrit (<10 or >65), or high doses of ascorbic acid (vitamin C) greater than 3mg/dL. Consider alternate testing mechanisms (e.g. core lab, blood gas instrument) in the above situations. [facility] Gastrin SerPl-mCncon 024 Gastrin [Mass/Vol] 21.7 pg/mL Normal <115.0 [facility] Comment on above: Order Comment: Speci men Type: BLOOD SPECIMENOrdering Facility: [facility] Address: [facility] [place] [address] Result Comment: The Gastrin test was performed using the Siemens Immulite chemiluminescent immunometric method. Results obtained with different assay methods or kits cannot be used interchangeably. Performed By: #### 2 333-3 ####[facility] LABCLIA [id number] [place] [address] [place] Laboratory - Hematology and Cell counts 06-03-2024 Basophils/100 WBC (Bld) 1.0 % [facility] Eosinophils/100 WBC (Bld) 8.9 % [facility] Erythrocyte distribution width (RBC) [Ratio] 13.1 % 11.5 - 15.0 % [facility] Hematocrit (Bld) [Volume fraction] 37.1 % Low 39.0 - 51.0 % [facility] Hemoglobin (Bld) [Mass/Vol] 12.5 g/dL Low 13.0 - 17.0 g/dL [facility] Lymphocytes/100 WBC (Bld) 16.6 % [facility] MCH (RBC) [Entitic mass] 32.2 pg 26.0 - 34.0 pg [facility] MCHC (RBC) [Mass/Vol] 33.7 g/dL 30.5 - 36.0 g/dL [facility] MCV (RBC) [Entitic vol] 95.6 fL 80.0 - 100.0 fL [facility] Monocytes/100 WBC (Bld) 14.3 % [facility] Neutrophils/100 WBC (Bld) 58.6 % [facility] RBC (Bld) [#/Vol] 3.88 10*6/uL Low 4.20 - 6.00 m/uL [facility] NM PET/CT WHOLE BODY SUBQon 06-03-2024 NM PET/CT WHOLE BODY SUBQ Invalid Interpretation Code [facility] No Panel Informationon 06-03 Interpretation and review of laboratory results Abnormal [facility] SEROTONIN BLDon 06-03-2024 SEROTONIN SERUM 1449 ng/mL High 50-220 [facility] Comment on above: Order Comment: Speci men Type: BLOOD SPECIMENOrdering Facility: [facility] Address: [address] [place] [address] Result Comment: TEST INFORMATION: Serotonin, SerumThis test was developed and its performance characteristicsdetermined by [facility]. It has not been cleared orapproved by the [place] Food and Drug Administration. This test wasperformed in a CLIA certified laboratory and is intended forclinical purposes.Performed By: [facility] [place] [id number] Director: Santosh Hollis MD, PhDCLIA Number: [id number] Performed By: #### S ERTON ####[facility] [employer] WorldWideIA [id number] [place] [id number] VASOACTIVE INTESTINAL POLYPE PTIDE (VIP), PLASMAon 06-03-2024 VASOACTIVE INTESTINAL POLYPEPTIDE 25.0 pg/mL Normal 0.0-89.1 [facility] Comment on above: Order Comment: Speci men Type: BLOOD SPECIMENOrdering Facility: [facility] Address: [address] [place] [address] Result Comment: This test was developed and its performance characteristicsdetermined by [facility]. It has not been cleared orapproved by the U.S. Food and Drug Administration. This test wasperformed in a CLIA-certified laboratory and is intended forclinical purposes.Performed By: [facility] [place] [id number] Director: Santosh Hollis MD, PhDCLIA Number: [id number] Performed By: #### V IP ####[facility] [employer]WideIA [id number] [place] [address] CNCOon 05-20-2024 CNCO Letter Text Normal [facility] CNOVSPon 05-20-2024 CNOVSP Normal [facility] CBC W Auto Differential pane l (Bld)on 05-13-2024 Basophils (Bld) [#/Vol] 0.03 10*3/uL Normal <0.11 [facility] Comment on above: Order Comment: Speci men Type: BLOOD SPECIMENOrdering Facility: [facility] Address: [address] [place] [address] Performed By: #### 5 7021-8 ####[facility] LABCLIA [id number] [place] [address] Basophils/100 WBC (Bld) 0.8 % Normal [facility] Comment on above: Order Comment: Speci men Type: BLOOD SPECIMENOrdering Facility: [facility] Address: [address] [place] [address] Performed By: #### 5 7021-8 ####[facility] LABCLIA [id number] [place] [address] Differential cell count method Nom (Bld) Auto Normal [facility] Comment on above: Order Comment: Speci men Type: BLOOD SPECIMENOrdering Facility: [facility] Address: [address] [place] [address] Performed By: #### 5 7021-8 ####[facility] LABCLIA [id number] [place] [address] Eosinophils (Bld) [#/Vol] 0.47 10*3/uL High <0.46 [facility] Comment on above: Order Comment: Speci men Type: BLOOD SPECIMENOrdering Facility: [facility] Address: [address] [place] [address] Performed By: #### 5 7021-8 ####[facility] LABCLIA [id number] [place] [address] Eosinophils/100 WBC (Bld) 12.2 % Normal [facility] Comment on above: Order Comment: Speci men Type: BLOOD SPECIMENOrdering Facility: [facility] Address: [address] [place] [address] Performed By: #### 5 7021-8 ####[facility] LABCLIA [id number] [place] [address] Erythrocyte distribution width (RBC) [Ratio] 12.6 % Normal 11.5-15.0 [facility] Comment on above: Order Comment: Speci men Type: BLOOD SPECIMENOrdering Facility: [facility] Address: [address] [place] [address] Performed By: #### 5 7021-8 ####[facility] LABCLIA [id number] [place] [address] Hematocrit (Bld) [Volume fraction] 34.9 % Low 39.0-51.0 [facility] Comment on above: Order Comment: Speci men Type: BLOOD SPECIMENOrdering Facility: [facility] Address: [address] [place] [address] Performed By: #### 5 7021-8 ####[facility] LABIA [id number] [place] [address] Hemoglobin (Bld) [Mass/Vol] 11.7 g/dL Low 13.0-17.0 [facility] Comment on above: Order Comment: Speci men Type: BLOOD SPECIMENOrdering Facility: [facility] Address: [address] [place] [address] Performed By: #### 5 7021-8 ####[facility] LABCLIA [id number] [place] [address] Immature granulocytes (Bld) [#/Vol] 10*3/uL Normal <0.10 [facility] Comment on above: Order Comment: Speci men Type: BLOOD SPECIMENOrdering Facility: [facility] Address: [address] [place] [address] Performed By: #### 5 7021-8 ####[facility] LABCLIA [id number] [place] [address] Immature granulocytes/100 WBC (Bld) 0.3 % Normal [facility] Comment on above: Order Comment: Speci men Type: BLOOD SPECIMENOrdering Facility: [facility] Address: [address] [place] [address] Performed By: #### 5 7021-8 ####[facility] LABCLIA [id number] [place] [address] Lymphocytes (Bld) [#/Vol] 0.81 10*3/uL Low 1.00-4.00 [facility] Comment on above: Order Comment: Speci men Type: BLOOD SPECIMENOrdering Facility: [facility] Address: [address] [place] [address] Performed By: #### 5 7021-8 ####[facility] LABCLIA [id number] [place] [address] Lymphocytes/100 WBC (Bld) 21.0 % Normal [facility] Comment on above: Order Comment: Speci men Type: BLOOD SPECIMENOrdering Facility: [facility] Address: [address] [place] [address] Performed By: #### 5 7021-8 ####[facility] LABCLIA [id number] [place] [address] MCH (RBC) [Entitic mass] 31.5 pg Normal 26.0-34.0 [facility] Comment on above: Order Comment: Speci men Type: BLOOD SPECIMENOrdering Facility: [facility] Address: [address] [place] [address] Performed By: #### 5 7021-8 ####[facility] LABIA [id number] [place] [address] MCHC (RBC) [Mass/Vol] 33.5 g/dL Normal 30.5-36.0 [facility] Comment on above: Order Comment: Speci men Type: BLOOD SPECIMENOrdering Facility: [facility] Address: [address] [place] [address] Performed By: #### 5 7021-8 ####[facility] LABCLIA [id number] [place] [address] MCV (RBC) [Entitic vol] 94.1 fL Normal 80.0-100.0 C [facility] Comment on above: Order Comment: Speci men Type: BLOOD SPECIMENOrdering Facility: [facility] Address: [address] [place] [address] Performed By: #### 5 7021-8 ####[facility] LABCLIA [id number] [place] [address] Monocytes (Bld) [#/Vol] 0.71 10*3/uL Normal <0.87 [facility] Comment on above: Order Comment: Speci men Type: BLOOD SPECIMENOrdering Facility: [facility] Address: [address] [place] [address] Performed By: #### 5 7021-8 ####[facility] LABCLIA [id number] [place] [address] Monocytes/100 WBC (Bld) 18.4 % Normal C [facility] Comment on above: Order Comment: Speci men Type: BLOOD SPECIMENOrdering Facility: [facility] Address: [address] [place] [address] Performed By: #### 5 7021-8 ####[facility] LABCLIA [id number] [place] [address] Neutrophils (Bld) [#/Vol] 1.83 10*3/uL Normal 1.45-7.50 [facility] Comment on above: Order Comment: Speci men Type: BLOOD SPECIMENOrdering Facility: [facility] Address: [address] [place] [address] Performed By: #### 5 7021-8 ####[facility] LABCLIA [id number] [place] [address] Neutrophils/100 WBC (Bld) 47.3 % Normal [facility] Comment on above: Order Comment: Speci men Type: BLOOD SPECIMENOrdering Facility: [facility] Address: [address] [place] [address] Performed By: #### 5 7021-8 ####[facility] LABCLIA [id number] [place] [address] Nucleated RBC (Bld) [#/Vol] 10*3/uL Normal <0.01 [facility] Comment on above: Order Comment: Speci men Type: BLOOD SPECIMENOrdering Facility: [facility] Address: [address] [place] [address] Performed By: #### 5 7021-8 ####[facility] LABCLIA [id number] [place] [address] Nucleated RBC/100 WBC (Bld) [Ratio] 0.0 /100 WBC Normal [facility] Comment on above: Order Comment: Speci men Type: BLOOD SPECIMENOrdering Facility: [facility] Address: [address] [place] [address] Performed By: #### 5 7021-8 ####[facility] LABCLIA [id number] [place] [address] Platelet mean volume (Bld) [Entitic vol] 10.0 fL Normal 9.0-12.7 [facility] Comment on above: Order Comment: Speci men Type: BLOOD SPECIMENOrdering Facility: [facility] Address: [address] [place] [address] Performed By: #### 5 7021-8 ####[facility] LABCLIA [id number] [place] [address] Platelets (Bld) [#/Vol] 187 10*3/uL Normal 150-400 [facility] Comment on above: Order Comment: Speci men Type: BLOOD SPECIMENOrdering Facility: [facility] Address: [address] [place] [address] Performed By: #### 5 7021-8 ####[facility] LABCLIA [id number] [place] [address] RBC (Bld) [#/Vol] 3.71 10*6/uL Low 4.20-6.00 [facility] Comment on above: Order Comment: Speci men Type: BLOOD SPECIMENOrdering Facility: [facility] Address: [address] [place] [address] Performed By: #### 5 7021-8 ####[facility] LABCLIA [id number] [place] [address] WBC (Bld) [#/Vol] 3.86 10*3/uL Normal 3.70-11.00 [facility] Comment on above: Order Comment: Speci men Type: BLOOD SPECIMENOrdering Facility: [facility] Address: [address] [place] [address] Performed By: #### 5 7021-8 ####[facility] LABCLIA [id number] [place] [address] [facility] CBC W AUTO DIFF BLDon Basophils/100 WBC (Bld) 0.8 % [facility] BASOPHILS # BLD AUTO 0.03 [facility] DIFFERENTIAL METHOD BLD Auto [facility] EOSINOPHIL # BLD AUTO 0.47 High [facility] LYMPHOCYTES # BLD AUTO 0.81 Low [facility] MONOCYTES # BLD AUTO 0.71 [facility] NEUTROPHILS # BLD AUTO 1.83 [facility] NRBC # BLD AUTO <0.01 [facility] NRBC/100 WBC BLD-RTO 0.0 /100 WBC [facility] PLATELET # BLD AUTO [address] [facility] PMV BLD AUTO 10.0 fL 9.0 - 12.7 fL [facility] WBC # BLD AUTO 3.86 [facility] Eosinophils/100 WBC (Bld) 12.2 % [facility] Erythrocyte distribution width (RBC) [Ratio] 12.6 % 11.5 - 15.0 % [facility] Hematocrit (Bld) [Volume fraction] 34.9 % Low 39.0 - 51.0 % [facility] Hemoglobin (Bld) [Mass/Vol] 11.7 g/dL Low 13.0 - 17.0 g/dL [facility] IMM GRANULOCYTES # BLD AUTO <0.03 NINF [facility] IMM GRANULOCYTES/LEUK NFR BLD AUTO 0.3 % [facility] Interpretation and review of laboratory results Abnormal [facility] Lymphocytes/100 WBC (Bld) 21.0 % [facility] MCH (RBC) [Entitic mass] 31.5 pg 26.0 - 34.0 pg [facility] MCHC (RBC) [Mass/Vol] 33.5 g/dL 30.5 - 36.0 g/dL [facility] MCV (RBC) [Entitic vol] 94.1 fL 80.0 - 100.0 fL [facility] Monocytes/100 WBC (Bld) 18.4 % [facility] Neutrophils/100 WBC (Bld) 47.3 % [facility] RBC (Bld) [#/Vol] 3.71 10*6/uL Low 4.20 - 6.00 m/uL [facility] Specimen Type: BLOOD SPECIMEN Ordering Facility: [facility] Address: [address] [place] [address] Original Ordering Provider: ROSELYN RAMIREZ [facility] CT Abdomen and Pelvis W rossy Holland 05-13-2024 IMPRESSION: 1. 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 If you are unable to reach us at the number above, please feel free to contact [facility] at [phone]. DIVISION OF RADIOLOGY * * *Final Report* * * DATE OF EXAM: May 13 2024 8:27AM [facility] 0553 [...] image 42, series 5, stable. 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 The portal vein is patent. 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 Perigastric and mesenteric collateral formation is again appreciated. - Hepatic veins: Patent. Pelvis: No free fluid or pelvic mass. No substantial inguinal adenopathy. Bones/Soft Tissues: Diffuse patchy sclerosis is appreciated throughout the visualized osseous structures, concerning for osseous metastases. [place]: A CT examination of the chest has been performed concurrently and will be dictated separately. Carpenter Apprentice (topogram) images: No additional findings. DIVISION OF RADIOLOGY Provider, [facility] - 05/13/2024 * * *Final Report* * * DATE OF EXAM: May 13 2024 8:27AM [facility] 0553 [...] image 42, series 5, stable. 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 The portal vein is patent. 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 Perigastric and mesenteric collateral formation is again appreciated. - Hepatic veins: Patent. Pelvis: No free fluid or pelvic mass. No substantial inguinal adenopathy. Bones/Soft Tissues: Diffuse patchy sclerosis is appreciated throughout the visualized osseous structures, concerning for osseous metastases. [place]: A CT examination of the chest has been performed concurrently and will be dictated separately. Carpenter Apprentice (topogram) images: No additional findings. IMPRESSION IMPRESSION: 1. There is an overall stable [...] stable in appearance. 4. Trace perihepatic and nick (more content not included)... [facility] CT Abdomen and Pelvis W cont rast IVOrdered By: Ccf Provider on 05-13-2024 [facility] CT CHEST W IVCONon CT CHEST W IVCON Normal Clevelan markell [facility] CT Chest W contrast Amalia IMPRESSION: 1. 1.7 cm irregularly marginated nodular [...] any questions regarding this interpretation, please call [phone]. If you are unable to reach us at the number above, please feel free to contact [facility] eRadiology at [phone]. DIVISION OF RADIOLOGY * * *Final Report* * * DATE OF EXAM: May 13 2024 8:27AM [facility] 0539 - CT CHEST W IVCON / [...] performed concurrently and will be dictated separately. Carpenter Apprentice (topogram) images: No additional findings. DIVISION OF RADIOLOGY Provider, [facility] - 05/13/2024 * * *Final Report* * * DATE OF EXAM: May 13 2024 8:27AM [facility] 0539 - CT CHEST W IVCON / [...] performed concurrently and will be dictated separately. Carpenter Apprentice (topogram) images: No additional findings. IMPRESSION IMPRESSION: 1. 1.7 cm irregularly marginated nodular [...] any questions regarding this interpretation, please call [phone]. If you are unable to reach us at the number above, please feel free to contact [facility] eRadiology at [phone]. [facility] CT PANCREAS/PELVIS W IVCONon 05-13-2024 CT PANCREAS/PELVIS W IVCON Normal [facility] CgA SerPl-mCncon 05-13-2024 Chromogranin A [Mass/Vol] 170.5 ng/mL Normal <187.0 [facility] Comment on above: Order Comment: Arben suarez Type: BLOOD SPECIMENOrdering Facility: [facility] Address: [address] [place] [address] Result Comment: The Chromogranin A test was performed using the AlphaSmartS CgA II KRYPTOR method. Results obtained with different assay methods or kits cannot be used interchangeably. Performed By: #### 9 811-1 ####[facility] LABCLIA [id number] [place] [address] [place] Comprehensive metabolic 2000 panelon 05-13-2024 Albumin [Mass/Vol] 4.4 g/dL Normal 3.9-4.9 [facility] Comment on above: Order Comment: Speci men Type: BLOOD SPECIMENOrdering Facility: [facility] Address: [address] [place] [address] Performed By: #### 2 4323-8 ####[facility] LABCLIA [id number] [place] [address] ALP [Catalytic activity/Vol] 122 U/L High 38-113 [facility] Comment on above: Order Comment: Speci men Type: BLOOD SPECIMENOrdering Facility: [facility] Address: [address] [place] [address] Performed By: #### 2 4323-8 ####[facility] LABCLIA [id number] [place] [address] ALT [Catalytic activity/Vol] 14 U/L Normal 10-54 [facility] Comment on above: Order Comment: Speci men Type: BLOOD SPECIMENOrdering Facility: [facility] Address: [address] [place] [address] Performed By: #### 2 4323-8 ####[facility] LABCLIA [id number] [place] [address] Anion gap [Moles/Vol] 12 mmol/L Normal 8-15 [facility] Comment on above: Order Comment: Speci men Type: BLOOD SPECIMENOrdering Facility: [facility] Address: [address] [place] [address] Performed By: #### 2 4323-8 ####[facility] LABCLIA [id number] [place] [address] AST [Catalytic activity/Vol] 30 U/L Normal 14-40 [facility] Comment on above: Order Comment: Speci men Type: BLOOD SPECIMENOrdering Facility: [facility] Address: [address] [place] [address] Performed By: #### 2 4323-8 ####[facility] LABCLIA [id number] [place] [address] Bilirubin [Mass/Vol] 0.5 mg/dL Normal 0.2-1.3 [facility] Comment on above: Order Comment: Speci men Type: BLOOD SPECIMENOrdering Facility: [facility] Address: [address] [place] [id number] Performed By: #### 2 4323-8 ####[facility] LABCLIA [id number] [place] [address] Calcium [Mass/Vol] 8.9 mg/dL Normal 8.5-10.2 [facility] Comment on above: Order Comment: Speci men Type: BLOOD SPECIMENOrdering Facility: [facility] Address: [address] [place] [address] Performed By: #### 2 4323-8 ####[facility] LABCLIA [id number] [place] [address] Chloride [Moles/Vol] 101 mmol/L Normal 98-107 [facility] Comment on above: Order Comment: Speci men Type: BLOOD SPECIMENOrdering Facility: [facility] Address: [address] [place] [address] Performed By: #### 2 4323-8 ####[facility] LABCLIA [id number] [place] [address] CO2 [Moles/Vol] 20 mmol/L Low 22-30 [facility] Comment on above: Order Comment: Speci men Type: BLOOD SPECIMENOrdering Facility: [facility] Address: [address] [place] [address] Performed By: #### 2 4323-8 ####[facility] LABCLIA [id number] [place] [address] Creatinine [Mass/Vol] 1.12 mg/dL Normal 0.73-1.22 [facility] Comment on above: Order Comment: Speci men Type: BLOOD SPECIMENOrdering Facility: [facility] Address: [address] [place] [address] Performed By: #### 2 4323-8 ####[facility] LABCLIA [id number] [place] [address] Creatinine and Glomerular filtration rate.predicted panel (S/P/Bld) 72 mL/min/1.73m??? Normal >=60 [facility] Comment on above: Order Comment: Arben suarez Type: BLOOD SPECIMENOrdering Facility: [facility] Address: [address] [place] [address] Result Comment: Bailey mated Glomerular Filtration Rate [...] reflect actual GFR. Performed By: #### 2 4323-8 ####[facility] LABCLIA [id number] [place] [address] Glucose [Mass/Vol] 91 mg/dL Normal 74-99 [facility] Comment on above: Order Comment: Arben suarez Type: BLOOD SPECIMENOrdering Facility: [facility] Address: [address] [place] [address] Result Comment: The [place] Diabetes Association (ADA) provides guidance for cutoff [...] Standards of Medical Care in Diabetes 2016, [place] [employer]. Diabetes Care. 2016.39(Suppl 1). Performed By: #### 2 4323-8 ####[facility] LABCLIA [id number] [place] [address] Potassium [Moles/Vol] 4.6 mmol/L Normal 3.7-5.1 [facility] Comment on above: Order Comment: Speci men Type: BLOOD SPECIMENOrdering Facility: [facility] Address: [address] [place] [address] Performed By: #### 2 4323-8 ####[facility] LABCLIA [id number] [place] [address] Protein [Mass/Vol] 7.1 g/dL Normal 6.3-8.0 [facility] Comment on above: Order Comment: Speci men Type: BLOOD SPECIMENOrdering Facility: [facility] Address: [address] [place] [address] Performed By: #### 2 4323-8 ####[facility] LABCLIA [id number] [place] [address] Sodium [Moles/Vol] 133 mmol/L Low 136-144 [facility] Comment on above: Order Comment: Speci men Type: BLOOD SPECIMENOrdering Facility: [facility] Address: [address] [place] [address] Performed By: #### 2 4323-8 ####[facility] LABCLIA [id number] [place] [address] Urea nitrogen [Mass/Vol] 13 mg/dL Normal 9-24 [facility] Comment on above: Order Comment: Speci men Type: BLOOD SPECIMENOrdering Facility: [facility] Address: [address] [place] [address] Performed By: #### 2 4323-8 ####[facility] LABCLIA [id number] [place] [address] Gastrin [facility] 05-13- 024 Gastrin [Mass/Vol] 57.8 pg/mL Normal <115.0 [facility] Comment on above: Order Comment: Speci men Type: BLOOD SPECIMENOrdering Facility: [facility] Address: [address] [place] [address] Result Comment: The Gastrin test was performed using the Siemens Immulite chemiluminescent immunometric method. Results obtained with different assay methods or kits cannot be used interchangeably. Performed By: #### 2 333-3 ####[facility] LABCLIA [id number] [place] [address] [place] [facility] SEND OUT TST 1on 2023 [facility] SCAN TEST RESULTS 1 View results in Scanned Documents link when available Normal [facility] Comment on above: Order Comment: Speci men Type: BLOOD SPECIMENOrdering Facility: External Submitter Address: , , Performed By: #### M ISC1 ####NON-INTERFACED REF LABSCLIA SEE SCANNED RESULTS REFERRAL LAB 1 (DROP-DOWN) [facility] Normal [facility] Comment on above: Order Comment: Speci men Type: BLOOD SPECIMENOrdering Facility: External Submitter Address: , , Performed By: #### M ISC1 ####NON-INTERFACED REF LABSCLIA SEE SCANNED RESULTS TEST 1 Vasoactive Intestina l polypeptide (VIP) Normal [facility] Comment on above: Order Comment: Speci men Type: BLOOD SPECIMENOrdering Facility: External Submitter Address: , , Performed By: #### M ISC1 ####NON-INTERFACED REF LABSCLIA SEE SCANNED RESULTS No Panel Informationon 05-13 Radiology Study observation (narrative) [facility] SEROTONIN BLDon 05-13-2024 SEROTONIN SERUM 1395 ng/mL High 50-220 [facility] Comment on above: Order Comment: Speci daniela Type: BLOOD SPECIMENOrdering Facility: [facility] Address: [address] [place] [address] Result Comment: TEST INFORMATION: Serotonin, SerumThis test was developed and its performance characteristicsdetermined by [facility]. It has not been cleared orapproved by the [place] Food and Drug Administration. This test wasperformed in a CLIA certified laboratory and is intended forclinical purposes.Performed By: [facility] [place], [place] [id number] Director: Santosh Hollis MD, PhDCLIA Number: [id number] Performed By: #### S ERTON ####[facility] LABORATORIESCLIA [id number] [place] [id number] CBC W Auto Differential pane l (Bld)on 04-21-2024 Basophils (Bld) [#/Vol] 0.04 10*3/uL Normal <0.11 [facility] Comment on above: Order Comment: Speci men Type: BLOOD SPECIMENOrdering Facility: [facility] Address: [address] [place] [address] Performed By: #### 5 7021-8 ####[facility] LABCLIA [id number] [place] [address] Basophils/100 WBC (Bld) 1.0 % Normal [facility] Comment on above: Order Comment: Speci men Type: BLOOD SPECIMENOrdering Facility: [facility] Address: [address] [place] [address] Performed By: #### 5 7021-8 ####[facility] LABCLIA [id number] [place] [address] Differential cell count method Nom (Bld) Auto Normal [facility] Comment on above: Order Comment: Speci men Type: BLOOD SPECIMENOrdering Facility: [facility] Address: [address] [place] [address] Performed By: #### 5 7021-8 ####[facility] LABCLIA [id number] [place] [address] Eosinophils (Bld) [#/Vol] 0.54 10*3/uL High <0.46 [facility] Comment on above: Order Comment: Speci men Type: BLOOD SPECIMENOrdering Facility: [facility] Address: [address] [place] [address] Performed By: #### 5 7021-8 ####[facility] LABCLIA [id number] [place] [address] Eosinophils/100 WBC (Bld) 12.9 % Normal [facility] Comment on above: Order Comment: Speci men Type: BLOOD SPECIMENOrdering Facility: [facility] Address: [address] [place] [address] Performed By: #### 5 7021-8 ####[facility] LABCLIA [id number] [place] [address] Erythrocyte distribution width (RBC) [Ratio] 12.5 % Normal 11.5-15.0 [facility] Comment on above: Order Comment: Speci men Type: BLOOD SPECIMENOrdering Facility: [facility] Address: [address] [place] [address] Performed By: #### 5 7021-8 ####[facility] LABCLIA [id number] [place] [address] Hematocrit (Bld) [Volume fraction] 35.6 % Low 39.0-51.0 [facility] Comment on above: Order Comment: Speci men Type: BLOOD SPECIMENOrdering Facility: [facility] Address: [address] [place] [address] Performed By: #### 5 7021-8 ####[facility] LABCLIA [id number] [place] [address] Hemoglobin (Bld) [Mass/Vol] 12.0 g/dL Low 13.0-17.0 [facility] Comment on above: Order Comment: Speci men Type: BLOOD SPECIMENOrdering Facility: [facility] Address: [address] [place] [address] Performed By: #### 5 7021-8 ####[facility] LABCLIA [id number] [place] [address] Immature granulocytes (Bld) [#/Vol] 10*3/uL Normal <0.10 [facility] Comment on above: Order Comment: Speci men Type: BLOOD SPECIMENOrdering Facility: [facility] Address: [address] [place] [address] Performed By: #### 5 7021-8 ####[facility] LABCLIA [id number] [place] [address] Immature granulocytes/100 WBC (Bld) 0.2 % Normal [facility] Comment on above: Order Comment: Speci men Type: BLOOD SPECIMENOrdering Facility: [facility] Address: [address] [place] [address] Performed By: #### 5 7021-8 ####[facility] LABCLIA [id number] [place] [address] Lymphocytes (Bld) [#/Vol] 0.71 10*3/uL Low 1.00-4.00 [facility] Comment on above: Order Comment: Speci men Type: BLOOD SPECIMENOrdering Facility: [facility] Address: [address] [place] [address] Performed By: #### 5 7021-8 ####[facility] LABCLIA [id number] [place] [address] Lymphocytes/100 WBC (Bld) 17.0 % Normal [facility] Comment on above: Order Comment: Speci men Type: BLOOD SPECIMENOrdering Facility: [facility] Address: [address] [place] [address] Performed By: #### 5 7021-8 ####[facility] LABCLIA [id number] [place] [address] MCH (RBC) [Entitic mass] 31.3 pg Normal 26.0-34.0 [facility] Comment on above: Order Comment: Speci men Type: BLOOD SPECIMENOrdering Facility: [facility] Address: [address] [place] [address] Performed By: #### 5 7021-8 ####[facility] LABCLIA [id number] [place] [address] MCHC (RBC) [Mass/Vol] 33.7 g/dL Normal 30.5-36.0 [facility] Comment on above: Order Comment: Speci men Type: BLOOD SPECIMENOrdering Facility: [facility] Address: [address] [place] [address] Performed By: #### 5 7021-8 ####[facility] LABCLIA [id number] [place] [address] MCV (RBC) [Entitic vol] 93.0 fL Normal 80.0-100.0 C [facility] Comment on above: Order Comment: Speci men Type: BLOOD SPECIMENOrdering Facility: [facility] Address: [address] [place] [address] Performed By: #### 5 7021-8 ####[facility] LABCLIA [id number] [place] [address] Monocytes (Bld) [#/Vol] 0.68 10*3/uL Normal <0.87 [facility] Comment on above: Order Comment: Speci men Type: BLOOD SPECIMENOrdering Facility: [facility] Address: [address] [place] [address] Performed By: #### 5 7021-8 ####[facility] LABCLIA [id number] [place] [address] Monocytes/100 WBC (Bld) 16.3 % Normal [facility] Comment on above: Order Comment: Speci men Type: BLOOD SPECIMENOrdering Facility: [facility] Address: [address] [place] [address] Performed By: #### 5 7021-8 ####[facility] LABCLIA [id number] [place] [address] Neutrophils (Bld) [#/Vol] 2.20 10*3/uL Normal 1.45-7.50 [facility] Comment on above: Order Comment: Speci men Type: BLOOD SPECIMENOrdering Facility: [facility] Address: [address] [place] [address] Performed By: #### 5 7021-8 ####[facility] LABCLIA [id number] [place] [address] Neutrophils/100 WBC (Bld) 52.6 % Normal [facility] Comment on above: Order Comment: Speci men Type: BLOOD SPECIMENOrdering Facility: [facility] Address: [address] [place] [address] Performed By: #### 5 7021-8 ####[facility] LABCLIA [id number] [place] [address] Nucleated RBC (Bld) [#/Vol] 10*3/uL Normal <0.01 [facility] Comment on above: Order Comment: Speci men Type: BLOOD SPECIMENOrdering Facility: [facility] Address: [address] [place] [address] Performed By: #### 5 7021-8 ####[facility] LABCLIA [id number] [place] [address] Nucleated RBC/100 WBC (Bld) [Ratio] 0.0 /100 WBC Normal [facility] Comment on above: Order Comment: Speci men Type: BLOOD SPECIMENOrdering Facility: [facility] Address: [address] [place] [address] Performed By: #### 5 7021-8 ####[facility] LABCLIA [id number] [place] [address] Platelet mean volume (Bld) [Entitic vol] 10.2 fL Normal 9.0-12.7 [facility] Comment on above: Order Comment: Speci men Type: BLOOD SPECIMENOrdering Facility: [facility] Address: [address] [place] [address] Performed By: #### 5 7021-8 ####[facility] LABCLIA [id number] [place] [address] Platelets (Bld) [#/Vol] 182 10*3/uL Normal 150-400 [facility] Comment on above: Order Comment: Speci men Type: BLOOD SPECIMENOrdering Facility: [facility] Address: [address] [place] [address] Performed By: #### 5 7021-8 ####[facility] LABCLIA [id number] [place] [address] RBC (Bld) [#/Vol] 3.83 10*6/uL Low 4.20-6.00 [facility] Comment on above: Order Comment: Speci men Type: BLOOD SPECIMENOrdering Facility: [facility] Address: [address] [place] [address] Performed By: #### 5 7021-8 ####[facility] LABCLIA [id number] [place] [address] WBC (Bld) [#/Vol] 4.18 10*3/uL Normal 3.70-11.00 [facility] Comment on above: Order Comment: Speci men Type: BLOOD SPECIMENOrdering Facility: [facility] Address: [address] [place] [address] Performed By: #### 5 7021-8 ####[facility] LABCLIA [id number] [place] [address] [facility] CBC W AUTO DIFF BLDon Basophils/100 WBC (Bld) 1.0 % [facility] BASOPHILS # BLD AUTO 0.04 [facility] DIFFERENTIAL METHOD BLD Auto [facility] EOSINOPHIL # BLD AUTO 0.54 High [facility] LYMPHOCYTES # BLD AUTO 0.71 Low [facility] MONOCYTES # BLD AUTO 0.68 [facility] NEUTROPHILS # BLD AUTO 2.20 [facility] NRBC # BLD AUTO <0.01 [facility] NRBC/100 WBC BLD-RTO 0.0 /100 WBC [facility] PLATELET # BLD AUTO 182 [facility] PMV BLD AUTO 10.2 fL 9.0 - 12.7 fL [facility] WBC # BLD AUTO 4.18 [facility] Eosinophils/100 WBC (Bld) 12.9 % [facility] Erythrocyte distribution width (RBC) [Ratio] 12.5 % 11.5 - 15.0 % [facility] Hematocrit (Bld) [Volume fraction] 35.6 % Low 39.0 - 51.0 % [facility] Hemoglobin (Bld) [Mass/Vol] 12.0 g/dL Low 13.0 - 17.0 g/dL [facility] IMM GRANULOCYTES # BLD AUTO <0.03 NINF [facility] IMM GRANULOCYTES/LEUK NFR BLD AUTO 0.2 % [facility] Interpretation and review of laboratory results Abnormal [facility] Lymphocytes/100 WBC (Bld) 17.0 % [facility] MCH (RBC) [Entitic mass] 31.3 pg 26.0 - 34.0 pg [facility] MCHC (RBC) [Mass/Vol] 33.7 g/dL 30.5 - 36.0 g/dL [facility] MCV (RBC) [Entitic vol] 93.0 fL 80.0 - 100.0 fL [facility] Monocytes/100 WBC (Bld) 16.3 % [facility] Neutrophils/100 WBC (Bld) 52.6 % [facility] RBC (Bld) [#/Vol] 3.83 10*6/uL Low 4.20 - 6.00 m/uL [facility] Specimen Type: BLOOD SPECIMEN [facility] Address: [address] [place] [address] Original Ordering Provider: ROSELYN RAMIREZ [facility] CgA SerPl-mCncon 04-21-2024 Chromogranin A [Mass/Vol] 161.1 ng/mL Normal <187.0 [facility] Comment on above: Order Comment: Speci men Type: BLOOD SPECIMENOrdering Facility: [facility] Address: [address] [place] [address] Result Comment: The Chromogranin A test was performed using the [employer] CgA II KRYPTOR method. Results obtained with different assay methods or kits cannot be used interchangeably. Performed By: #### 9 811-1 ####[facility] LABCLIA [id number] [place] [address] [place] Comprehensive metabolic 2000 panelon 04-21-2024 Albumin [Mass/Vol] 4.5 g/dL Normal 3.9-4.9 [facility] Comment on above: Order Comment: Speci men Type: BLOOD SPECIMENOrdering Facility: [facility] Address: [address] [place] [address] Performed By: #### 2 4323-8 ####[facility] LABCLIA [id number] [place] [address] ALP [Catalytic activity/Vol] 143 U/L High 38-113 [facility] Comment on above: Order Comment: Speci men Type: BLOOD SPECIMENOrdering Facility: [facility] Address: [address] [place] [address] Performed By: #### 2 4323-8 ####[facility] LABCLIA [id number] [place] [address] ALT [Catalytic activity/Vol] 17 U/L Normal 10-54 [facility] Comment on above: Order Comment: Speci men Type: BLOOD SPECIMENOrdering Facility: [facility] Address: [address] [place] [address] Performed By: #### 2 4323-8 ####[facility] LABCLIA [id number] [place] [address] Anion gap [Moles/Vol] 11 mmol/L Normal 8-15 [facility] Comment on above: Order Comment: Speci men Type: BLOOD SPECIMENOrdering Facility: [facility] Address: [address] [place] [address] Performed By: #### 2 4323-8 ####[facility] LABCLIA [id number] [place] [address] AST [Catalytic activity/Vol] 32 U/L Normal 14-40 [facility] Comment on above: Order Comment: Speci men Type: BLOOD SPECIMENOrdering Facility: [facility] Address: [address] [place] [address] Performed By: #### 2 4323-8 ####[facility] LABCLIA [id number] [place] [address] Bilirubin [Mass/Vol] 0.8 mg/dL Normal 0.2-1.3 [facility] Comment on above: Order Comment: Speci men Type: BLOOD SPECIMENOrdering Facility: [facility] Address: [address] [place] [address] Performed By: #### 2 4323-8 ####[facility] LABCLIA [id number] [place] [address] Calcium [Mass/Vol] 9.3 mg/dL Normal 8.5-10.2 [facility] Comment on above: Order Comment: Speci men Type: BLOOD SPECIMENOrdering Facility: [facility] Address: [address] [place] [address] Performed By: #### 2 4323-8 ####[facility] LABCLIA [id number] [place] [address] Chloride [Moles/Vol] 107 mmol/L Normal 98-107 [facility] Comment on above: Order Comment: Speci men Type: BLOOD SPECIMENOrdering Facility: [facility] Address: [address] [place] [address] Performed By: #### 2 4323-8 ####[facility] LABCLIA [id number] [place] [address] CO2 [Moles/Vol] 23 mmol/L Normal 22-30 [facility] Comment on above: Order Comment: Speci men Type: BLOOD SPECIMENOrdering Facility: [facility] Address: [address] [place] [address] Performed By: #### 2 4323-8 ####[facility] LABCLIA [id number] [place] [address] Creatinine [Mass/Vol] 1.08 mg/dL Normal 0.73-1.22 [facility] Comment on above: Order Comment: Speci men Type: BLOOD SPECIMENOrdering Facility: [facility] Address: [address] [place] [address] Performed By: #### 2 4323-8 ####[facility] LABCLIA [id number] [place] [address] Creatinine and Glomerular filtration rate.predicted panel (S/P/Bld) 75 mL/min/1.73m??? Normal >=60 [facility] Comment on above: Order Comment: Specbrooks suarez Type: BLOOD SPECIMENOrdering Facility: [facility] Address: [address] [place] [address] Result Comment: Bailey mated Glomerular Filtration Rate [...] reflect actual GFR. Performed By: #### 2 4323-8 ####[facility] LABCLIA [id number] [place] [address] Glucose [Mass/Vol] 101 mg/dL High 74-99 [facility] Comment on above: Order Comment: Arben suarez Type: BLOOD SPECIMENOrdering Facility: [facility] Address: [address] [place] [address] Result Comment: The [place] [employer] Association (ADA) provides guidance for cutoff [...] Standards of Medical Care in Diabetes 2016, [place] [employer]. Diabetes Care. 2016.39(Suppl 1). Performed By: #### 2 4323-8 ####[facility] LABCLIA [id number] [place] [address] Potassium [Moles/Vol] 5.0 mmol/L Normal 3.7-5.1 [facility] Comment on above: Order Comment: Arben suarez Type: BLOOD SPECIMENOrdering Facility: [facility] Address: [address] [place] [address] Performed By: #### 2 4323-8 ####[facility] LABCLIA [id number] [place] [address] Protein [Mass/Vol] 7.1 g/dL Normal 6.3-8.0 [facility] Comment on above: Order Comment: Speci men Type: BLOOD SPECIMENOrdering Facility: [facility] Address: [address] [place] [address] Performed By: #### 2 4323-8 ####[facility] LABCLIA [id number] [place] [address] Sodium [Moles/Vol] 141 mmol/L Normal 136-144 [facility] Comment on above: Order Comment: Speci men Type: BLOOD SPECIMENOrdering Facility: [facility] Address: [address] [place] [address] Performed By: #### 2 4323-8 ####[facility] LABCLIA [id number] [place] [address] Urea nitrogen [Mass/Vol] 12 mg/dL Normal 9-24 [facility] Comment on above: Order Comment: Speci men Type: BLOOD SPECIMENOrdering Facility: [facility] Address: [address] [place] [address] Performed By: #### 2 4323-8 ####[facility] LABCLIA [id number] [place] [address] Ferritin SerPl-ncon 2023 Ferritin [Mass/Vol] 281.0 ng/mL Normal 30.3-565.7 [facility] Comment on above: Order Comment: Speci men Type: BLOOD SPECIMENOrdering Facility: [facility] Address: [address] [place] [address] Performed By: #### 5 0190-8, 2276-4, 2132-9, 2284-8 ####[facility] LABCLIA [id number] [address] [place] Folate SerPl-ncon 04-21-20 24 Folate [Mass/Vol] 9.7 ng/mL Normal >4.7 [facility] Comment on above: Order Comment: Speci men Type: BLOOD SPECIMENOrdering Facility: [facility] Address: [address] [place] [address] Performed By: #### 5 0190-8, 2275-4, 2132-04, 2284-03 ####[facility] LABCLIA [id number] [place] [address] [place] Gastrin SerPl-ncon 024 Gastrin [Mass/Vol] 42.5 pg/mL Normal <115.0 [facility] Comment on above: Order Comment: Speci men Type: BLOOD SPECIMENOrdering Facility: [facility] Address: [address] [place] [address] Result Comment: The Gastrin test was performed using the Siemens Immulite chemiluminescent immunometric method. Results obtained with different assay methods or kits cannot be used interchangeably. Performed By: #### 2 333-3 ####[facility] LABCLIA [id number] [place] [address] [place] Iron and Iron binding capaci ty panelon 04-21-2024 Iron [Mass/Vol] 181 ug/dL Normal 41-186 [facility] Comment on above: Order Comment: Speci men Type: BLOOD SPECIMENOrdering Facility: [facility] Address: [address] [place] [address] Performed By: #### 5 0190-8, 4, 2132-04, 2284-03 ####[facility] LABIA [id number] [place] [address] [place] Iron binding capacity [Mass/Vol] 359 ug/dL Normal 232-386 [facility] Comment on above: Order Comment: Speci men Type: BLOOD SPECIMENOrdering Facility: [facility] Address: [address] [place] [address] Performed By: #### 5 0190-8, 6-4, 2131-9, 8 ####[facility] LABCLIA [id number] [place] [address] [place] Iron/TIBC [Molar ratio] 50.4 % Normal 15.0-57.0 C [facility] Comment on above: Order Comment: Speci men Type: BLOOD SPECIMENOrdering Facility: [facility] Address: [address] [place] [address] Performed By: #### 5 0190-8, 6-4, 9, 8 ####[facility] LABCLIA [id number] [place] [address] [place] SEROTONIN BLDon 04-21-2024 SEROTONIN SERUM 1102 ng/mL High 50-220 [facility] Comment on above: Order Comment: Speci men Type: BLOOD SPECIMENOrdering Facility: [facility] Address: [address] [place] [address] Result Comment: TEST INFORMATION: Serotonin, SerumThis test was developed and its performance characteristicsdetermined by [employer]. It has not been cleared orapproved by the [place] Food and Drug Administration. This test wasperformed in a CLIA certified laboratory and is intended forclinical purposes.Performed By: [facility] [place], [place] [email or web address] Director: Santosh Hollis MD, PhDCLIA Number: [id number] Performed By: #### S ERTON ####[facility] S[facility]THIA [id number] [place] [address] VASOACTIVE INTESTINAL POLYPE PTIDE (VIP), PLASMAon 04-21-2024 VASOACTIVE INTESTINAL POLYPEPTIDE (VIP), PLASMA SEE NOTE Normal [facility] Comment on above: Order Comment: Speci men Type: BLOOD SPECIMENOrdering Facility: [facility] Address: [address] [place] [address] Result Comment: Test ing is complete. [facility].Note: There may be a delay of up to 2 hours beforereport is available to view. ADDITIONAL INFORMATION Adult Reference Range(s): Up to 36 pg/mL (mean 14)This test was developed and its performance characteristicsdetermined by [employer]. It has not beencleared or approved by the [place] Food and Drug Administration.The FDA had determined that such clearance or approval isnot necessary.Test Performed by:[employer] [place] [address] Performed By: #### V IP ####[facility] LABCLIA [id number] [place] [address] Vit B12 [facility] 04-21- 024 Cobalamin (Vitamin B12) [Mass/Vol] 789 pg/mL Normal 232-1245 [facility] Comment on above: Order Comment: Speci men Type: BLOOD SPECIMENOrdering Facility: [facility] Address: [address] [place] [address] Performed By: #### 5 0190-8, 2276-4, 2132-9, 2284-8 ####[facility] LABCLIA [id number] [place] [address] [place] CBC W Auto Differential pane l (Bld)on 03-24-2024 Basophils (Bld) [#/Vol] 0.04 10*3/uL Normal <0.11 [facility] Comment on above: Order Comment: Speci men Type: BLOOD SPECIMENOrdering Facility: [facility] Address: [address] [place] [address] Performed By: #### 5 7021-8 ####[facility] LABCLIA [id number] [place] [address] Basophils/100 WBC (Bld) 1.1 % Normal C [facility] Comment on above: Order Comment: Speci men Type: BLOOD SPECIMENOrdering Facility: [facility] Address: [address] [place] [address] Performed By: #### 5 7021-8 ####[facility] LABCLIA [id number] [place] [address] Differential cell count method Nom (Bld) Auto Normal [facility] Comment on above: Order Comment: Speci men Type: BLOOD SPECIMENOrdering Facility: [facility] Address: [address] [place] [address] Performed By: #### 5 7021-8 ####[facility] LABCLIA [id number] [place] [address] Eosinophils (Bld) [#/Vol] 0.35 10*3/uL Normal <0.46 [facility] Comment on above: Order Comment: Speci men Type: BLOOD SPECIMENOrdering Facility: [facility] Address: [address] [place] [address] Performed By: #### 5 7021-8 ####[facility] LABCLIA [id number] [place] [address] Eosinophils/100 WBC (Bld) 9.5 % Normal [facility] Comment on above: Order Comment: Speci men Type: BLOOD SPECIMENOrdering Facility: [facility] Address: [address] [place] [address] Performed By: #### 5 7021-8 ####[facility] LABCLIA [id number] [place] [address] Erythrocyte distribution width (RBC) [Ratio] 13.6 % Normal 11.5-15.0 [facility] Comment on above: Order Comment: Speci men Type: BLOOD SPECIMENOrdering Facility: [facility] Address: [address] [place] [address] Performed By: #### 5 7021-8 ####[facility] LABIA [id number] [place] [address] Hematocrit (Bld) [Volume fraction] 34.4 % Low 39.0-51.0 [facility] Comment on above: Order Comment: Speci men Type: BLOOD SPECIMENOrdering Facility: [facility] Address: [address] [place] [address] Performed By: #### 5 7021-8 ####[facility] LABCLIA [id number] [place] [address] Hemoglobin (Bld) [Mass/Vol] 11.2 g/dL Low 13.0-17.0 [facility] Comment on above: Order Comment: Speci men Type: BLOOD SPECIMENOrdering Facility: [facility] Address: [address] [place] [address] Performed By: #### 5 7021-8 ####[facility] LABCLIA [id number] [place] [address] Immature granulocytes (Bld) [#/Vol] 10*3/uL Normal <0.10 [facility] Comment on above: Order Comment: Speci men Type: BLOOD SPECIMENOrdering Facility: [facility] Address: [address] [place] [address] Performed By: #### 5 7021-8 ####[facility] LABCLIA [id number] [place] [address] Immature granulocytes/100 WBC (Bld) 0.3 % Normal [facility] Comment on above: Order Comment: Speci men Type: BLOOD SPECIMENOrdering Facility: [facility] Address: [address] [place] [address] Performed By: #### 5 7021-8 ####[facility] LABCLIA [id number] [place] [address] Lymphocytes (Bld) [#/Vol] 0.63 10*3/uL Low 1.00-4.00 [facility] Comment on above: Order Comment: Speci men Type: BLOOD SPECIMENOrdering Facility: [facility] Address: [address] [place] [address] Performed By: #### 5 7021-8 ####[facility] LABCLIA [id number] [place] [address] Lymphocytes/100 WBC (Bld) 17.0 % Normal [facility] Comment on above: Order Comment: Speci men Type: BLOOD SPECIMENOrdering Facility: [facility] Address: [address] [place] [address] Performed By: #### 5 7021-8 ####[facility] LABCLIA [id number] [place] [address] MCH (RBC) [Entitic mass] 31.4 pg Normal 26.0-34.0 [facility] Comment on above: Order Comment: Speci men Type: BLOOD SPECIMENOrdering Facility: [facility] Address: [address] [place] [address] Performed By: #### 5 7021-8 ####[facility] LABCLIA [id number] [place] [address] MCHC (RBC) [Mass/Vol] 32.6 g/dL Normal 30.5-36.0 [facility] Comment on above: Order Comment: Speci men Type: BLOOD SPECIMENOrdering Facility: [facility] Address: [address] [place] [address] Performed By: #### 5 7021-8 ####[facility] LABCLIA [id number] [place] [address] MCV (RBC) [Entitic vol] 96.4 fL Normal 80.0-100.0 [facility] Comment on above: Order Comment: Speci men Type: BLOOD SPECIMENOrdering Facility: [facility] Address: [address] [place] [id number] Performed By: #### 5 7021-8 ####[facility] LABCLIA [id number] [place] [address] Monocytes (Bld) [#/Vol] 0.55 10*3/uL Normal <0.87 [facility] Comment on above: Order Comment: Speci men Type: BLOOD SPECIMENOrdering Facility: [facility] Address: [address] [place] [address] Performed By: #### 5 7021-8 ####[facility] LABCLIA [id number] [place] [address] Monocytes/100 WBC (Bld) 14.9 % Normal [facility] Comment on above: Order Comment: Speci men Type: BLOOD SPECIMENOrdering Facility: [facility] Address: [address] [place] [address] Performed By: #### 5 7021-8 ####[facility] LABCLIA [id number] [place] [address] Neutrophils (Bld) [#/Vol] 2.12 10*3/uL Normal 1.45-7.50 [facility] Comment on above: Order Comment: Speci men Type: BLOOD SPECIMENOrdering Facility: [facility] Address: [address] [place] [address] Performed By: #### 5 7021-8 ####[facility] LABCLIA [id number] [place] [address] Neutrophils/100 WBC (Bld) 57.2 % Normal [facility] Comment on above: Order Comment: Speci men Type: BLOOD SPECIMENOrdering Facility: [facility] Address: [address] [place] [address] Performed By: #### 5 7021-8 ####[facility] LABCLIA [id number] [place] [address] Nucleated RBC (Bld) [#/Vol] 10*3/uL Normal <0.01 [facility] Comment on above: Order Comment: Speci men Type: BLOOD SPECIMENOrdering Facility: [facility] Address: [address] [place] [address] Performed By: #### 5 7021-8 ####[facility] LABCLIA [id number] [place] [address] Nucleated RBC/100 WBC (Bld) [Ratio] 0.0 /100 WBC Normal [facility] Comment on above: Order Comment: Speci men Type: BLOOD SPECIMENOrdering Facility: [facility] Address: [address] [place] [address] Performed By: #### 5 7021-8 ####[facility] LABCLIA [id number] [place] [address] Platelet mean volume (Bld) [Entitic vol] 10.1 fL Normal 9.0-12.7 [facility] Comment on above: Order Comment: Speci men Type: BLOOD SPECIMENOrdering Facility: [facility] Address: [address] [place] [address] Performed By: #### 5 7021-8 ####[facility] LABCLIA [id number] [place] [address] Platelets (Bld) [#/Vol] 196 10*3/uL Normal 150-400 [facility] Comment on above: Order Comment: Speci men Type: BLOOD SPECIMENOrdering Facility: [facility] Address: [address] [place] [address] Performed By: #### 5 7021-8 ####[facility] LABCLIA [id number] [place] [address] RBC (Bld) [#/Vol] 3.57 10*6/uL Low 4.20-6.00 [facility] Comment on above: Order Comment: Speci men Type: BLOOD SPECIMENOrdering Facility: [facility] Address: [address] [place] [address] Performed By: #### 5 7021-8 ####[facility] LABCLIA [id number] [place] [address] WBC (Bld) [#/Vol] 3.70 10*3/uL Normal 3.70-11.00 [facility] Comment on above: Order Comment: Speci men Type: BLOOD SPECIMENOrdering Facility: [facility] Address: [address] [place] [address] Performed By: #### 5 7021-8 ####[facility] LABCLIA [id number] [place] [address] CNOVSPon 03-24-2024 CNOVSP Normal [facility] CgA SerPl-mCncon 03-24-2024 Chromogranin A [Mass/Vol] 169.7 ng/mL Normal <187.0 [facility] Comment on above: Order Comment: Speci men Type: BLOOD SPECIMENOrdering Facility: [facility] Address: [address] [place] [address] Result Comment: The Chromogranin A test was performed using the [employer] CgA II KRYPTOR method. Results obtained with different assay methods or kits cannot be used interchangeably. Performed By: #### 9 811-1 ####[facility] LABCLIA [id number] [place] [id number] OF [facility] Comprehensive metabolic 2000 panelon 03-24-2024 Albumin [Mass/Vol] 4.5 g/dL Normal 3.9-4.9 [facility] Comment on above: Order Comment: Speci men Type: BLOOD SPECIMENOrdering Facility: [facility] Address: [address] [place] [address] Performed By: #### 2 4323-8 ####[facility] LABCLIA [id number] [place] [address] ALP [Catalytic activity/Vol] 150 U/L High 38-113 [facility] Comment on above: Order Comment: Speci men Type: BLOOD SPECIMENOrdering Facility: [facility] Address: [address] [place] [address] Performed By: #### 2 4323-8 ####[facility] LABCLIA [id number] [place] [address] ALT [Catalytic activity/Vol] 16 U/L Normal 10-54 [facility] Comment on above: Order Comment: Speci men Type: BLOOD SPECIMENOrdering Facility: [facility] Address: [address] [place] [address] Performed By: #### 2 4323-8 ####[facility] LABCLIA [id number] [place] [address] Anion gap [Moles/Vol] 11 mmol/L Normal 8-15 [facility] Comment on above: Order Comment: Speci men Type: BLOOD SPECIMENOrdering Facility: [facility] Address: [address] [place] [address] Performed By: #### 2 4323-8 ####[facility] LABCLIA [id number] [place] [address] AST [Catalytic activity/Vol] 32 U/L Normal 14-40 [facility] Comment on above: Order Comment: Speci men Type: BLOOD SPECIMENOrdering Facility: [facility] Address: [address] [place] [address] Performed By: #### 2 4323-8 ####[facility] LABCLIA [id number] [place] [address] Bilirubin [Mass/Vol] 0.4 mg/dL Normal 0.2-1.3 [facility] Comment on above: Order Comment: Speci men Type: BLOOD SPECIMENOrdering Facility: [facility] Address: [address] [place] [address] Performed By: #### 2 4323-8 ####[facility] LABCLIA [id number] [place] [address] Calcium [Mass/Vol] 9.5 mg/dL Normal 8.5-10.2 [facility] Comment on above: Order Comment: Speci men Type: BLOOD SPECIMENOrdering Facility: [facility] Address: [address] [place] [address] Performed By: #### 2 4323-8 ####[facility] LABCLIA [id number] [place] [address] Chloride [Moles/Vol] 115 mmol/L High 98-107 [facility] Comment on above: Order Comment: Speci men Type: BLOOD SPECIMENOrdering Facility: [facility] Address: [address] [place], [place] [address] Performed By: #### 2 4323-8 ####[facility] LABCLIA [id number] [place] [address] CO2 [Moles/Vol] 20 mmol/L Low 22-30 [facility] Comment on above: Order Comment: Speci men Type: BLOOD SPECIMENOrdering Facility: [facility] Address: [address] [place] [address] Performed By: #### 2 4323-8 ####[facility] LABCLIA [id number] [place] [address] Creatinine [Mass/Vol] 1.17 mg/dL Normal 0.73-1.22 [facility] Comment on above: Order Comment: Speci men Type: BLOOD SPECIMENOrdering Facility: [facility] Address: [address] [place] [address] Performed By: #### 2 4323-8 ####[facility] LABCLIA [id number] [place] [address] Creatinine and Glomerular filtration rate.predicted panel (S/P/Bld) 68 mL/min/1.73m??? Normal >=60 [facility] Comment on above: Order Comment: Speci men Type: BLOOD SPECIMENOrdering Facility: [facility] Address: [address] [place] [address] Result Comment: Bailey mated Glomerular Filtration Rate [...] reflect actual GFR. Performed By: #### 2 4323-8 ####[facility] LABCLIA [id number] [place] [address] Glucose [Mass/Vol] 91 mg/dL Normal 74-99 [facility] Comment on above: Order Comment: Speci men Type: BLOOD SPECIMENOrdering Facility: [facility] Address: [address] [place] [address] Result Comment: The [place] Diabetes Association (ADA) provides guidance for cutoff [...] Standards of Medical Care in Diabetes 2016, [place] [employer]. Diabetes Care. 2016.39(Suppl 1). Performed By: #### 2 4323-8 ####[facility] LABCLIA [id number] [place] [address] Potassium [Moles/Vol] 4.5 mmol/L Normal 3.7-5.1 [facility] Comment on above: Order Comment: Speci men Type: BLOOD SPECIMENOrdering Facility: [facility] Address: [address] [place] [address] Performed By: #### 2 4323-8 ####[facility] LABCLIA [id number] [place] [address] Protein [Mass/Vol] 7.3 g/dL Normal 6.3-8.0 [facility] Comment on above: Order Comment: Speci men Type: BLOOD SPECIMENOrdering Facility: [facility] Address: [address] [place] [address] Performed By: #### 2 4323-8 ####[facility] LABCLIA [id number] [place] [address] Sodium [Moles/Vol] 146 mmol/L High 136-144 [facility] Comment on above: Order Comment: Speci men Type: BLOOD SPECIMENOrdering Facility: [facility] Address: [address] [place] [address] Performed By: #### 2 4323-8 ####[facility] LABCLIA [id number] [place] [address] Urea nitrogen [Mass/Vol] 19 mg/dL Normal 9-24 [facility] Comment on above: Order Comment: Speci men Type: BLOOD SPECIMENOrdering Facility: [facility] Address: [address] [place] [address] Performed By: #### 2 4323-8 ####[facility] LABCLIA [id number] [place] [address] Gastrin SerPl-ncon 024 Gastrin [Mass/Vol] 52.1 pg/mL Normal <115.0 [facility] Comment on above: Order Comment: Speci men Type: BLOOD SPECIMENOrdering Facility: [facility] Address: [address] [place] [address] Result Comment: The Gastrin test was performed using the Siemens Immulite chemiluminescent immunometric method. Results obtained with different assay methods or kits cannot be used interchangeably. Performed By: #### 2 333-3 ####[facility] LABCLIA [id number] [place] [address] [place] SEROTONIN BLDon 03-24-2024 SEROTONIN SERUM 1426 ng/mL High 50-220 [facility] Comment on above: Order Comment: Speci men Type: BLOOD SPECIMENOrdering Facility: [facility] Address: [address] [place] [address] Result Comment: TEST INFORMATION: Serotonin, SerumThis test was developed and its performance characteristicsdetermined by [employer]. It has not been cleared orapproved by the [place] Food and Drug Administration. This test wasperformed in a CLIA certified laboratory and is intended forclinical purposes.Performed By: [facility] [place] [id number] Director: Santosh Hollis MD, PhDCLIA Number: [id number] Performed By: #### S ERTON ####[facility] SOUTHIA [id number] [place] [address] VASOACTIVE INTESTINAL POLYPE PTIDE (VIP), PLASMAon 03-24-2024 VASOACTIVE INTESTINAL POLYPEPTIDE (VIP), PLASMA 36 pg/mL Normal [facility] Comment on above: Order Comment: Speci men Type: BLOOD SPECIMENOrdering Facility: [facility] Address: [address] [place] [address] Result Comment: ---- ADDITIONAL INFORMATION Adult Reference Range(s): Up to 36 pg/mL (mean 14)This test was developed and its performance characteristicsdetermined by [employer]. It has not beencleared or approved by the [place] Food and Drug Administration.The FDA had determined that such clearance or approval isnot necessary.Test Performed by:[employer] [place] [address] Performed By: #### V IP ####[facility] LABCLIA [id number] [place] [address] CBC W Auto Differential pane l (Bld)on 02-24-2024 Basophils (Bld) [#/Vol] 0.03 10*3/uL Normal <0.11 [facility] Comment on above: Order Comment: Speci men Type: BLOOD SPECIMENOrdering Facility: [facility] Address: [address] [place] [address] Performed By: #### 5 7021-8 ####[facility] LABCLIA [id number] [place] [address] Basophils/100 WBC (Bld) 0.5 % Normal [facility] Comment on above: Order Comment: Speci men Type: BLOOD SPECIMENOrdering Facility: [facility] Address: [address] [place] [address] Performed By: #### 5 7021-8 ####[facility] LABCLIA [id number] [place] [address] Differential cell count method Nom (Bld) Auto Normal [facility] Comment on above: Order Comment: Speci men Type: BLOOD SPECIMENOrdering Facility: [facility] Address: [address] [place] [address] Performed By: #### 5 7021-8 ####[facility] LABCLIA [id number] [place] [address] Eosinophils (Bld) [#/Vol] 0.43 10*3/uL Normal <0.46 [facility] Comment on above: Order Comment: Speci men Type: BLOOD SPECIMENOrdering Facility: [facility] Address: [address] [place] [address] Performed By: #### 5 7021-8 ####[facility] LABCLIA [id number] [place] [address] Eosinophils/100 WBC (Bld) 7.4 % Normal [facility] Comment on above: Order Comment: Speci men Type: BLOOD SPECIMENOrdering Facility: [facility] Address: [address] [place] [address] Performed By: #### 5 7021-8 ####[facility] LABCLIA [id number] [place] [address] Erythrocyte distribution width (RBC) [Ratio] 13.7 % Normal 11.5-15.0 [facility] Comment on above: Order Comment: Speci men Type: BLOOD SPECIMENOrdering Facility: [facility] Address: [address] [place] [address] Performed By: #### 5 7021-8 ####[facility] LABCLIA [id number] [place] [address] Hematocrit (Bld) [Volume fraction] 42.2 % Normal 39.0-51.0 [facility] Comment on above: Order Comment: Speci men Type: BLOOD SPECIMENOrdering Facility: [facility] Address: [address] [place] [address] Performed By: #### 5 7021-8 ####[facility] LABCLIA [id number] [place] [address] Hemoglobin (Bld) [Mass/Vol] 13.7 g/dL Normal 13.0-17.0 [facility] Comment on above: Order Comment: Speci men Type: BLOOD SPECIMENOrdering Facility: [facility] Address: [address] [place] [address] Performed By: #### 5 7021-8 ####[facility] LABCLIA [id number] [place] [address] Immature granulocytes (Bld) [#/Vol] 10*3/uL Normal <0.10 [facility] Comment on above: Order Comment: Speci men Type: BLOOD SPECIMENOrdering Facility: [facility] Address: [address] [place] [address] Performed By: #### 5 7021-8 ####[facility] LABCLIA [id number] [place] [address] Immature granulocytes/100 WBC (Bld) 0.3 % Normal [facility] Comment on above: Order Comment: Speci men Type: BLOOD SPECIMENOrdering Facility: [facility] Address: [address] [place] [address] Performed By: #### 5 7021-8 ####[facility] LABCLIA [id number] [place] [address] Lymphocytes (Bld) [#/Vol] 0.90 10*3/uL Low 1.00-4.00 [facility] Comment on above: Order Comment: Speci men Type: BLOOD SPECIMENOrdering Facility: [facility] Address: [address] [place] [address] Performed By: #### 5 7021-8 ####[facility] LABCLIA [id number] [place] [address] Lymphocytes/100 WBC (Bld) 15.4 % Normal [facility] Comment on above: Order Comment: Speci men Type: BLOOD SPECIMENOrdering Facility: [facility] Address: [address] [place] [address] Performed By: #### 5 7021-8 ####[facility] LABCLIA [id number] [place] [address] MCH (RBC) [Entitic mass] 30.0 pg Normal 26.0-34.0 [facility] Comment on above: Order Comment: Speci men Type: BLOOD SPECIMENOrdering Facility: [facility] Address: [address] [place] [address] Performed By: #### 5 7021-8 ####[facility] LABCLIA [id number] [place] [address] MCHC (RBC) [Mass/Vol] 32.5 g/dL Normal 30.5-36.0 [facility] Comment on above: Order Comment: Speci men Type: BLOOD SPECIMENOrdering Facility: [facility] Address: [address] [place] [address] Performed By: #### 5 7021-8 ####[facility] LABCLIA [id number] [place] [address] MCV (RBC) [Entitic vol] 92.3 fL Normal 80.0-100.0 C [facility] Comment on above: Order Comment: Speci men Type: BLOOD SPECIMENOrdering Facility: [facility] Address: [address] [place] [address] Performed By: #### 5 7021-8 ####[facility] LABCLIA [id number] [place] [address] Monocytes (Bld) [#/Vol] 0.69 10*3/uL Normal <0.87 [facility] Comment on above: Order Comment: Speci men Type: BLOOD SPECIMENOrdering Facility: [facility] Address: [address] [place] [address] Performed By: #### 5 7021-8 ####[facility] LABCLIA [id number] [place] [address] Monocytes/100 WBC (Bld) 11.8 % Normal [facility] Comment on above: Order Comment: Speci men Type: BLOOD SPECIMENOrdering Facility: [facility] Address: [address] [place] [address] Performed By: #### 5 7021-8 ####[facility] LABCLIA [id number] [place] [address] Neutrophils (Bld) [#/Vol] 3.78 10*3/uL Normal 1.45-7.50 [facility] Comment on above: Order Comment: Speci men Type: BLOOD SPECIMENOrdering Facility: [facility] Address: [address] [place] [address] Performed By: #### 5 7021-8 ####[facility] LABCLIA [id number] [place] [address] Neutrophils/100 WBC (Bld) 64.6 % Normal [facility] Comment on above: Order Comment: Speci men Type: BLOOD SPECIMENOrdering Facility: [facility] Address: [address] [place] [address] Performed By: #### 5 7021-8 ####[facility] LABCLIA [id number] [place] [address] Nucleated RBC (Bld) [#/Vol] 10*3/uL Normal <0.01 [facility] Comment on above: Order Comment: Speci men Type: BLOOD SPECIMENOrdering Facility: [facility] Address: [address] [place] [address] Performed By: #### 5 7021-8 ####[facility] LABCLIA [id number] [place] [address] Nucleated RBC/100 WBC (Bld) [Ratio] 0.0 /100 WBC Normal [facility] Comment on above: Order Comment: Speci men Type: BLOOD SPECIMENOrdering Facility: [facility] Address: [address] [place] [address] Performed By: #### 5 7021-8 ####[facility] LABCLIA [id number] [place] [address] Platelet mean volume (Bld) [Entitic vol] 10.3 fL Normal 9.0-12.7 [facility] Comment on above: Order Comment: Speci men Type: BLOOD SPECIMENOrdering Facility: [facility] Address: [address] [place] [address] Performed By: #### 5 7021-8 ####[facility] LABCLIA [id number] [place] [address] Platelets (Bld) [#/Vol] 213 10*3/uL Normal 150-400 [facility] Comment on above: Order Comment: Speci men Type: BLOOD SPECIMENOrdering Facility: [facility] Address: [address] [place] [address] Performed By: #### 5 7021-8 ####[facility] LABIA [id number] [place] [address] RBC (Bld) [#/Vol] 4.57 10*6/uL Normal 4.20-6.00 [facility] Comment on above: Order Comment: Speci men Type: BLOOD SPECIMENOrdering Facility: [facility] Address: [address] [place] [address] Performed By: #### 5 7021-8 ####[facility] LABIA [id number] [place] [address] WBC (Bld) [#/Vol] 5.85 10*3/uL Normal 3.70-11.00 [facility] Comment on above: Order Comment: Speci men Type: BLOOD SPECIMENOrdering Facility: [facility] Address: [address] [place] [address] Performed By: #### 5 7021-8 ####[facility] LABCLIA [id number] [place] [address] CNOVSPon 02-24-2024 CNOVSP Normal [facility] CgA SerPl-mCncon 02-24-2024 Chromogranin A [Mass/Vol] 187.8 ng/mL High <187.0 [facility] Comment on above: Order Comment: Speci men Type: BLOOD SPECIMENOrdering Facility: [facility] Address: [address] [place] [address] Result Comment: The Chromogranin A test was performed using the [employer] CgA II KRYPTOR method. Results obtained with different assay methods or kits cannot be used interchangeably. Performed By: #### 9 811-1 ####[facility] LABCLIA [id number] [place] [address] [facility] Comprehensive metabolic 2000 panelon 02-24-2024 Albumin [Mass/Vol] 4.5 g/dL Normal 3.9-4.9 [facility] Comment on above: Order Comment: Speci men Type: BLOOD SPECIMENOrdering Facility: [facility] Address: [address] [place] [address] Performed By: #### 2 4323-8 ####[facility] LABCLIA [id number] [place] [address] ALP [Catalytic activity/Vol] 191 U/L High 38-113 [facility] Comment on above: Order Comment: Speci men Type: BLOOD SPECIMENOrdering Facility: [facility] Address: [address] [place] [address] Performed By: #### 2 4323-8 ####[facility] LABCLIA [id number] [place] [address] ALT [Catalytic activity/Vol] 17 U/L Normal 10-54 [facility] Comment on above: Order Comment: Speci men Type: BLOOD SPECIMENOrdering Facility: [facility] Address: [address] [place] [address] Performed By: #### 2 4323-8 ####[facility] LABCLIA [id number] [place] [address] Anion gap [Moles/Vol] 9 mmol/L Normal 8-15 [facility] Comment on above: Order Comment: Speci men Type: BLOOD SPECIMENOrdering Facility: [facility] Address: [address] [place] [address] Performed By: #### 2 4323-8 ####[facility] LABCLIA [id number] [place] [address] AST [Catalytic activity/Vol] 29 U/L Normal 14-40 [facility] Comment on above: Order Comment: Speci men Type: BLOOD SPECIMENOrdering Facility: [facility] Address: [address] [place] [address] Performed By: #### 2 4323-8 ####[facility] LABCLIA [id number] [place] [address] Bilirubin [Mass/Vol] 0.5 mg/dL Normal 0.2-1.3 [facility] Comment on above: Order Comment: Speci men Type: BLOOD SPECIMENOrdering Facility: [facility] Address: [address] [place] [address] Performed By: #### 2 4323-8 ####[facility] LABCLIA [id number] [place] [address] Calcium [Mass/Vol] 9.4 mg/dL Normal 8.5-10.2 [facility] Comment on above: Order Comment: Speci men Type: BLOOD SPECIMENOrdering Facility: [facility] Address: [address] [place] [address] Performed By: #### 2 4323-8 ####[facility] LABCLIA [id number] [place] [address] Chloride [Moles/Vol] 110 mmol/L High 98-107 [facility] Comment on above: Order Comment: Speci men Type: BLOOD SPECIMENOrdering Facility: [facility] Address: [address] [place] [address] Performed By: #### 2 4323-8 ####[facility] LABCLIA [id number] [place] [address] CO2 [Moles/Vol] 25 mmol/L Normal 22-30 [facility] Comment on above: Order Comment: Speci men Type: BLOOD SPECIMENOrdering Facility: [facility] Address: [address] [place] [address] Performed By: #### 2 4323-8 ####[facility] LABIA [id number] [place] [address] Creatinine [Mass/Vol] 1.10 mg/dL Normal 0.73-1.22 [facility] Comment on above: Order Comment: Speci men Type: BLOOD SPECIMENOrdering Facility: [facility] Address: [address] [place] [address] Performed By: #### 2 4323-8 ####[facility] [id number] [place] [address] Creatinine and Glomerular filtration rate.predicted panel (S/P/Bld) 73 mL/min/1.73m??? Normal >=60 [facility] Comment on above: Order Comment: Speci men Type: BLOOD SPECIMENOrdering Facility: [facility] Address: [address] [place] [address] Result Comment: Bailey mated Glomerular Filtration Rate [...] reflect actual GFR. Performed By: #### 2 4323-8 ####[facility] LABIA [id number] [place] [address] Glucose [Mass/Vol] 125 mg/dL High 74-99 [facility] Comment on above: Order Comment: Speci men Type: BLOOD SPECIMENOrdering Facility: [facility] Address: [address] [place] [address] Result Comment: The [place] Diabetes Association (ADA) provides guidance for cutoff [...] Standards of Medical Care in Diabetes 2016, [place] [employer] Association. Diabetes Care. 2016.39(Suppl 1). Performed By: #### 2 4323-8 ####[facility] LABCLIA [id number] [place] [address] Potassium [Moles/Vol] 5.2 mmol/L High 3.7-5.1 [facility] Comment on above: Order Comment: Speci men Type: BLOOD SPECIMENOrdering Facility: [facility] Address: [address] [place] [address] Performed By: #### 2 4323-8 ####[facility] LABCLIA [id number] [place] [address] Protein [Mass/Vol] 7.6 g/dL Normal 6.3-8.0 [facility] Comment on above: Order Comment: Speci men Type: BLOOD SPECIMENOrdering Facility: [facility] Address: [address] [place] [address] Performed By: #### 2 4323-8 ####[facility] LABCLIA [id number] [place] [address] Sodium [Moles/Vol] 144 mmol/L Normal 136-144 [facility] Comment on above: Order Comment: Speci men Type: BLOOD SPECIMENOrdering Facility: [facility] Address: [address] [place] [address] Performed By: #### 2 4323-8 ####[facility] LABCLIA [id number] [place] [address] Urea nitrogen [Mass/Vol] 18 mg/dL Normal 9-24 [facility] Comment on above: Order Comment: Speci men Type: BLOOD SPECIMENOrdering Facility: [facility] Address: [address] [place] [address] Performed By: #### 2 4323-8 ####[facility] LABCLIA [id number] [place] [address] Gastrin SerPl-mCncon 024 Gastrin [Mass/Vol] 22.0 pg/mL Normal <115.0 [facility] Comment on above: Order Comment: Speci men Type: BLOOD SPECIMENOrdering Facility: [facility] Address: [address] [place] [address] Result Comment: The Gastrin test was performed using the Siemens Immulite chemiluminescent immunometric method. Results obtained with different assay methods or kits cannot be used interchangeably. Performed By: #### 2 333-3 ####[facility] LABCLIA [id number] [place] [address] [place] SEROTONIN BLDon 02-24-2024 SEROTONIN SERUM 1886 ng/mL High 50-220 [facility] Comment on above: Order Comment: Speci men Type: BLOOD SPECIMENOrdering Facility: [facility] Address: [address] [place] [address] Result Comment: TEST INFORMATION: Serotonin, SerumThis test was developed and its performance characteristicsdetermined by [employer]. It has not been cleared orapproved by the [place] Food and Drug Administration. This test wasperformed in a CLIA certified laboratory and is intended forclinical purposes.Performed By: [facility] [place], [place] [address]Sxfmwigkna Director: Santosh Hollis MD, PhDCLIA Number: [id number] Performed By: #### S ERTON ####[facility] LABORATORIESCLIA [id number] [place] [address] VASOACTIVE INTESTINAL POLYPE PTIDE (VIP), PLASMAon 02-24-2024 VASOACTIVE INTESTINAL POLYPEPTIDE (VIP), PLASMA 23 pg/mL Normal [facility] Comment on above: Order Comment: Speci men Type: BLOOD SPECIMENOrdering Facility: [facility] Address: [address], [place] [address] Result Comment: ---- ADDITIONAL INFORMATION Adult Reference Range(s): Up to 36 pg/mL (mean 14)This test was developed and its performance characteristicsdetermined by [employer]. It has not beencleared or approved by the US Food and Drug Administration.The FDA had determined that such clearance or approval isnot necessary.Test Performed by:[facility] [facility] [place] [address] Performed By: #### V IP ####[facility] LABCLIA [id number] [place] [address] CNPNon 02-23-2024 CNPN Normal [facility] CNPNon 02-18-2024 CNPN Normal [facility] CT Abdomen and Pelvis W cont rast Amalia 02-18-2024 IMPRESSION: 1. Redemonstrated findings of the known [...] any questions regarding this interpretation, please call [phone]. If you are unable to reach us at the number above, please feel free to contact [facility] at [phone]. 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 - Portal venous [...] Pelvis: No mass, ascites or fluid collection. (more content not included)... 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 - Portal venous [...] venous collaterals are seen. - Hepatic veins: P (more content not included)... [facility] Radiology Study observation (narrative) [facility] CT Abdomen and Pelvis W cont rast IVOrdered By: Ccf Provider on 02-18-2024 [facility] CT PANCREAS/PELVIS W IVCONon 02-18-2024 CT PANCREAS/PELVIS W IVCON Normal [facility] FERRITINon 12-04-2023 Ferritin [Mass/Vol] 260.0 ng/mL 30.3 - 565.7 ng/mL [facility] FOLATE, SERUMon 12-04-2023 Folate [Mass/Vol] 8.4 ng/mL >4.7 ng/mL [facility] Iron and Iron binding capaci ty panelon 12-04-2023 Iron [Mass/Vol] 67 ug/dL 41 - 186 ug/dL [facility] Iron binding capacity [Mass/Vol] 383 ug/dL 232 - 386 ug/dL [facility] Iron/TIBC [Molar ratio] 17.5 % 15.0 - 57.0 % [facility] VITAMIN B12on 12-04-2023 Cobalamin (Vitamin B12) [Mass/Vol] 698 pg/mL 232 - 1,245 pg/mL [facility] CBC W Auto Differential pane l (Bld)on 12-03-2023 Basophils (Bld) [#/Vol] 0.03 10*3/uL <0.11 k/uL [facility] Basophils/100 WBC (Bld) 0.6 % [facility] Differential cell count method Nom (Bld) Auto [facility] Eosinophils (Bld) [#/Vol] 0.13 10*3/uL <0.46 k/uL [facility] Eosinophils/100 WBC (Bld) 2.5 % [facility] Erythrocyte distribution width (RBC) [Ratio] 14.8 % 11.5 - 15.0 % [facility] Hematocrit (Bld) [Volume fraction] 36.0 % Low 39.0 - 51.0 % [facility] Hemoglobin (Bld) [Mass/Vol] 11.7 g/dL Low 13.0 - 17.0 g/dL [facility] Immature granulocytes (Bld) [#/Vol] <0.10 k/uL [facility] Immature granulocytes/100 WBC (Bld) 0.4 % [facility] Lymphocytes (Bld) [#/Vol] 0.96 10*3/uL Low 1.00 - 4.00 k/uL [facility] Lymphocytes/100 WBC (Bld) 18.4 % [facility] MCH (RBC) [Entitic mass] 28.8 pg 26.0 - 34.0 pg [facility] MCHC (RBC) [Mass/Vol] 32.5 g/dL 30.5 - 36.0 g/dL [facility] MCV (RBC) [Entitic vol] 88.7 fL 80.0 - 100.0 fL [facility] Monocytes (Bld) [#/Vol] 0.68 10*3/uL <0.87 k/uL [facility] Monocytes/100 WBC (Bld) 13.0 % [facility] Neutrophils (Bld) [#/Vol] 3.40 10*3/uL 1.45 - 7.50 k/uL [facility] Neutrophils/100 WBC (Bld) 65.1 % [facility] Nucleated RBC (Bld) [#/Vol] <0.01 k/uL [facility] Nucleated RBC/100 WBC (Bld) [Ratio] 0.0 /100 WBC [facility] Platelet mean volume (Bld) [Entitic vol] 10.5 fL 9.0 - 12.7 fL [facility] Platelets (Bld) [#/Vol] 198 10*3/uL 150 - 400 k/uL [facility] RBC (Bld) [#/Vol] 4.06 10*6/uL Low 4.20 - 6.00 m/uL [facility] WBC (Bld) [#/Vol] 5.22 10*3/uL 3.70 - 11.00 k/uL [facility] Comprehensive metabolic 2000 panelon 12-03-2023 Albumin [Mass/Vol] 4.1 g/dL 3.9 - 4.9 g/dL [facility] ALP [Catalytic activity/Vol] 135 U/L High 38 - 113 U/L [facility] ALT [Catalytic activity/Vol] 11 U/L 10 - 54 U/L [facility] Anion gap [Moles/Vol] 10 mmol/L 9 - 18 mmol/L [facility] AST [Catalytic activity/Vol] 17 U/L 14 - 40 U/L [facility] Bilirubin [Mass/Vol] 0.5 mg/dL 0.2 - 1 .3 mg/dL [facility] Calcium [Mass/Vol] 9.5 mg/dL 8.5 - 10. 2 mg/dL [facility] Chloride [Moles/Vol] 102 mmol/L 97 - 10 5 mmol/L [facility] CO2 [Moles/Vol] 25 mmol/L 22 - 30 mmol/L [facility] Creatinine [Mass/Vol] 0.98 mg/dL 0.73 - 1.22 mg/dL [facility] Estimated Glomerular Filtration Rate 84 mL/min/1.73m >=60 mL/min/1.7 3m [facility] Glucose [Mass/Vol] 120 mg/dL High 74 - 99 mg/dL [facility] Potassium [Moles/Vol] 4.4 mmol/L 3.7 - 5.1 mmol/L [facility] Protein [Mass/Vol] 7.2 g/dL 6.3 - 8.0 g/dL [facility] Sodium [Moles/Vol] 137 mmol/L 136 - 144 mmol/L [facility] Urea nitrogen [Mass/Vol] 14 mg/dL 9 - 24 mg/dL [facility] Anisocytosis LM Ql (Bld)Orde red By: Kalina Moore on 10-10-2023 Anisocytosis Ql (Bld) Moderate [facility] Basophils Auto (Bld) [#/Vol] Ordered By: Kalina Moore on 10-10-2023 Basophils (Bld) [#/Vol] N/A [facility] Basophils/100 WBC Auto (Bld) Ordered By: Kalina Moore on 10-10-2023 Basophils/100 WBC (Bld) N/A [facility] Basophils/100 WBC Manual cnt (Bld)Ordered By: Kalina Moore on 10-10-2023 Basophils/100 WBC (Bld) 0 % 0-2 [facility] Calcium [Mass/volume] in Ser um or PlasmaOrdered By: Kalina Moore on 10-10-2023 Calcium [Mass/Vol] 7.7 mg/dL 8.6-10.3 [facility] Carbon dioxide, total [Moles /volume] in Serum or PlasmaOrdered By: Kalina Moore on 10-10-2023 CO2 [Moles/Vol] 25.2 mmol/L 21.0-31.0 [facility] Chloride [Moles/volume] in S sadi or PlasmaOrdered By: Kalina Moore on 10-10-2023 Chloride [Moles/Vol] 110 mmol/L 98-[address] [facility] Creatinine [Mass/volume] in Serum or PlasmaOrdered By: Kalina Moore on 10-10-2023 Creatinine [Mass/Vol] 0.69 mg/dL 0.70-1.30 [facility] Eosinophils Auto (Bld) [#/Vo l]Ordered By: Kalina Moore on 10-10-2023 Eosinophils (Bld) [#/Vol] N/A [facility] Eosinophils/100 WBC Auto (Bl d)Ordered By: Kalina Moore on 10-10-2023 Eosinophils/100 WBC (Bld) N/A [facility] Eosinophils/100 WBC Manual c nt (Bld)Ordered By: Kalina Moore on 10-10-2023 Eosinophils/100 WBC (Bld) 5 % 1-3 [facility] Erythrocyte distribution wid th Auto (RBC) [Ratio]Ordered By: Kalina Valdez on 10-10-2023 Erythrocyte distribution width (RBC) [Ratio] 15.5 % 12.0-14.8 [facility] Glucose Glucometer (BldC) [M ass/Vol]Ordered By: Johnny Mendoza on 10-10-2023 Glucose [Mass/Vol] 96 mg/dL [facility] Comment on above: Random Glucose Refer ence Range is dependent on time and content of last meal. Glucose of more than 200 mg/dL in a nonstressed, ambulatory subject supports the diagnosis of Diabetes Mellitus. Glucose [Mass/volume] in Ser um or PlasmaOrdered By: Kalina Moore on 10-10-2023 Glucose [Mass/Vol] 89 mg/dL 70-100 [facility] Comment on above: ADA recommended refe rence rangeRandom Glucose Reference Range is dependent on time and content of last meal. Glucose of more than 200 mg/dL in a nonstressed, ambulatory subject supports the diagnosis of Diabetes Mellitus. Hematocrit Auto (Bld) [Volum e fraction]Ordered By: Kalina Moore on 10-10-2023 Hematocrit (Bld) [Volume fraction] 28.9 % 38.8-50.0 [facility] Hemoglobin [Mass/volume] in BloodOrdered By: Kalina Moore on 10-10-2023 Hemoglobin (Bld) [Mass/Vol] 9.4 g/dL 13.0-17.0 [facility] Leukocytes [#/volume] correc johnnie for nucleated erythrocytes in Blood by Automated counOrdered By: Kalina Moore on 10-10-2023 WBC corrected for nucl RBC Auto (Bld) [#/Vol] 6.3 10*3/uL 4.1-10.5 [facility] Lymphocytes Auto (Bld) [#/Vo l]Ordered By: Kalina Moore on 10-10-2023 Lymphocytes (Bld) [#/Vol] N/A [facility] Lymphocytes/100 WBC Auto (Bl d)Ordered By: Kalina Moore on 10-10-2023 Lymphocytes/100 WBC (Bld) N/A [facility] Lymphocytes/100 WBC Manual c nt (Bld)Ordered By: Kalina Moore on 10-10-2023 Lymphocytes/100 WBC (Bld) 5 % 18-42 [facility] MCH Auto (RBC) [Entitic mass ]Ordered By: Kalina Moore on 10-10-2023 MCH (RBC) [Entitic mass] 29.8 pg 27.5-35.2 [facility] MCHC Auto (RBC) [Mass/Vol]Or dered By: Kalina Moore on 10-10-2023 MCHC (RBC) [Mass/Vol] 32.6 g/dL 32.5-35.6 [facility] MCV Auto (RBC) [Entitic vol] Ordered By: Kalina Moore on 10-10-2023 MCV (RBC) [Entitic vol] 91.5 fL 83.5-101 [facility] Magnesium [Mass/volume] in S sadi or PlasmaOrdered By: Kalina Moore on 10-10-2023 Magnesium [Mass/Vol] 2.1 mg/dL 1.9-2.[address] [facility] Metamyelocytes/100 WBC Manua l cnt (Bld)Ordered By: Kalina Moore on 10-10-2023 Metamyelocytes/100 WBC (Bld) 1 % 0-0 [facility] Monocytes Auto (Bld) [#/Vol] Ordered By: Kalina Moore on 10-10-2023 Monocytes (Bld) [#/Vol] N/A [facility] Monocytes/100 WBC Auto (Bld) Ordered By: Kalina Moore on 10-10-2023 Monocytes/100 WBC (Bld) N/A [facility] Monocytes/100 WBC Manual cnt (Bld)Ordered By: Kalina Moore on 10-10-2023 Monocytes/100 WBC (Bld) 9 % 2-11 [facility] Myelocytes/100 WBC Manual cn t (Bld)Ordered By: Kalina Moore on 10-10-2023 Myelocytes/100 WBC (Bld) 2 % 0-0 [facility] Neutrophils Auto (Bld) [#/Vo l]Ordered By: Kalina Moore on 10-10-2023 Neutrophils (Bld) [#/Vol] N/A [facility] Neutrophils/100 WBC Auto (Bl d)Ordered By: Kalina Moore on 10-10-2023 Neutrophils/100 WBC (Bld) N/A [facility] No Panel InformationOrdered By: Kalina Moore on 10-10-2023 Estimated GFR (CKD-EPI) > 60.0 mL/Min [facility] Creatinine Clearance (Chem 88.38 [facility] Nucleated erythrocytes [Pres ence] in Blood by Automated countOrdered By: Kalina Moore on 10-10-2023 Nucleated RBC Auto Ql (Bld) N/A [facility] Ovalocyte detectionOrdered B y: Kalina Moore on 10-10-2023 Ovalocytes LM Ql (Bld) [facility] Phosphate [Mass/volume] in S sadi or PlasmaOrdered By: Kalina Moore on 10-10-2023 Phosphate [Mass/Vol] 2.7 mg/dL 2.5-4.[address] [facility] Platelet adequacy [Presence] in Blood by Light microscopyOrdered By: Kalina Moore on 10-10-2023 Platelets LM Ql (Bld) Decreased Normal [facility] Platelet mean volume Auto (B ld) [Entitic vol]Ordered By: Kalina Moore on 10-10-2023 Platelet mean volume (Bld) [Entitic vol] 11.1 fL 6.6-10.1 [facility] Platelet morphology finding [Identifier] in BloodOrdered By: Kalina Valdez on 10-10-2023 Platelet morphology finding Nom (Bld) Normal Normal [facility] Platelets Auto (Bld) [#/Vol] Ordered By: Kalina Moore on 10-10-2023 Platelets (Bld) [#/Vol] 104 10*3/uL 150-450 [facility] Potassium [Moles/volume] in Serum or PlasmaOrdered By: Kalina Moore on 10-10-2023 Potassium [Moles/Vol] 3.7 mmol/L 3.5-5.1 [facility] RBC Auto (Bld) [#/Vol]Ordere d By: Kalina Moore on 10-10-2023 RBC (Bld) [#/Vol] 3.16 10*6/uL 3.90-5.60 [facility] RBC morphologyOrdered By: Gladis Moore on 10-10-2023 RBC morphology finding Nom (Bld) N/A [facility] Segmented neutrophils/100 WB C Manual cnt (Bld)Ordered By: Kalina Moore on 10-10-2023 Segmented neutrophils/100 WBC (Bld) 78 % 50-70 [facility] Serum or plasma anion gap de terminationOrdered By: Kalina Moore on 10-10-2023 Anion gap [Moles/Vol] 8.5 mmol/L 6.0-15.0 [facility] Sodium [Moles/volume] in Ser um or PlasmaOrdered By: Kalina Moore on 10-10-2023 Sodium [Moles/Vol] 140 mmol/L 136-145 [facility] Urea nitrogen [Mass/volume] in Serum or PlasmaOrdered By: Kalina Moore on 10-10-2023 Urea nitrogen [Mass/Vol] 12 mg/dL 7-25 [facility] WBC Auto (Bld) [#/Vol]Ordere d By: Kalina Moore on 10-10-2023 WBC (Bld) [#/Vol] 6.3 10*3/uL 4.1-10.5 [facility] No Panel InformationOrdered By: Cali Patterson on 10-08-2023 Bedside Glucose Comment Glu2: cleaned meter [facility] Prealbumin [Mass/volume] in Serum or PlasmaOrdered By: Kalina Moore on 10-08-2023 Prealbumin [Mass/Vol] 7.0 mg/dL 17.0-34.0 [facility] Triglyceride [Mass/volume] i n Serum or PlasmaOrdered By: Kalina Moore on 10-08-2023 Triglyceride [Mass/Vol] 100 mg/dL 35-149 [facility] Comment on above: TRIG ATP III CLASSIF ICATIONTRIG less than 150 mg/dL NormalTRIG 150-199 mg/dL Borderline highTRIG 200-500 mg/dL High TRIG greater than 500 mg/dL Very highStandard traceable to the Center for Disease Conrtrol and Prevention (CDC) test method. Fecal occult blood detection by immunochemistryOrdered By: Kalina Moore on 10-07-2023 Hemoglobin.gastrointest inal Ql (Stl) [facility] Activated partial thrombopla stin time (aPTT) in platelet poor plasma by coagulation aOrdered By: Joseluis Mejia on 10-06-2023 aPTT Coag (PPP) [Time] 31.8 s 25.1-36.5 [facility] Comment on above: A hematocrit value g reater than 55% may lead to inaccurate results in coagulation testing. Patients having hematocrit values >55% require a special collection tube for coagulation studies. Please contact the laboratory at [phone] for redraw instructions. Alanine aminotransferase [En zymatic activity/volume] in Serum or PlasmaOrdered By: Joseluis Mejia on 10-06-2023 ALT [Catalytic activity/Vol] 16 U/L 7-52 [facility] Albumin [Mass/volume] in Ser um or Plasma by Bromocresol green (BCG) dye binding methoOrdered By: Joseluis Mejia on 10-06-2023 Albumin BCG dye [Mass/Vol] 3.1 g/dL 3.5-5.7 [facility] Alkaline phosphatase [Enzyma tic activity/volume] in Serum or PlasmaOrdered By: Joseluis Mejia on 10-06-2023 ALP [Catalytic activity/Vol] 139 U/L 34-104 [facility] Aspartate aminotransferase [ Enzymatic activity/volume] in Serum or PlasmaOrdered By: Joseluis Mejia on 10-06-2023 AST [Catalytic activity/Vol] 23 U/L 13-39 [facility] Bacteria identified Aer cx N om (Unsp spec)Ordered By: Cali Patterson on 10-06-2023 Superficial Wound Culture Klebsiella pneumoniae [facility] Band form neutrophils/100 WB C Manual cnt (Bld)Ordered By: Joseluis Mejia on 10-06-2023 Band form neutrophils/100 WBC (Bld) 14 % 0-5 [facility] Basophils Auto (Bld) [#/Vol] Ordered By: Joseluis Mejia on 10-06-2023 Basophils (Bld) [#/Vol] N/A [facility] Basophils/100 WBC Auto (Bld) Ordered By: Joseluis Mejia on 10-06-2023 Basophils/100 WBC (Bld) N/A [facility] Bilirubin Test strip Ql (U)O rdered By: Joseluis Mejia on 10-06-2023 Bilirubin Ql (U) 1+ Negative [facility] Bilirubin.total [Mass/volume ] in Serum or PlasmaOrdered By: Joseluis Mejia on 10-06-2023 Bilirubin [Mass/Vol] 0.9 mg/dL 0.3-1.[address] [facility] COVID CepheidOrdered By: Mckenzie Gutiérrez on 10-06-2023 SARS-CoV-2 (COVID-19) Ab IA Ql Negative Negative [facility] Comment on above: This is a duplicate [employer] Xpert [employer]press CoV-2/Flu/RSV Plus RNA by RT-PCR result to be used for statistical tracking purpose only. SARS-CoV-2 (COVID-19) RNA VERITO+probe Ql (Unsp spec) [facility] Calcium [Mass/volume] in Ser um or PlasmaOrdered By: Joseluis Mejia on 10-06-2023 Calcium [Mass/Vol] 7.8 mg/dL 8.6-10.3 [facility] Carbon dioxide, total [Moles /volume] in Serum or PlasmaOrdered By: Joseluis Mejia on 10-06-2023 CO2 [Moles/Vol] 27.0 mmol/L 21.0-31.0 [facility] Chloride [Moles/volume] in S sadi or PlasmaOrdered By: Joseluis Mejia on 10-06-2023 Chloride [Moles/Vol] 97 mmol/L 98-[address] [facility] Color Auto (U)Ordered By: Monse Mejia on 10-06-2023 Color (U) Dark yellow Yellow [facility] Creatinine [Mass/volume] in Serum or PlasmaOrdered By: Joseluis Mejia on 10-06-2023 Creatinine [Mass/Vol] 1.38 mg/dL 0.70-1.30 [facility] Eosinophils Auto (Bld) [#/Vo l]Ordered By: Joseluis Mejia on 10-06-2023 Eosinophils (Bld) [#/Vol] N/A [facility] Eosinophils/100 WBC Auto (Bl d)Ordered By: Joseluis Mejia on 10-06-2023 Eosinophils/100 WBC (Bld) N/A [facility] Erythrocyte distribution wid th Auto (RBC) [Ratio]Ordered By: Joseluis Mejia on 10-06-2023 Erythrocyte distribution width (RBC) [Ratio] 13.9 % 12.0-14.8 [facility] Globulin Calc (S) [Mass/Vol] Ordered By: Joseluis Mejia on 10-06-2023 Globulin (S) [Mass/Vol] 2.9 g/dL [facility] Glucose [Mass/volume] in Ser um or PlasmaOrdered By: Joseluis Mejia on 10-06-2023 Glucose [Mass/Vol] 116 mg/dL 70-100 [facility] Comment on above: ADA recommended refe rence rangeRandom Glucose Reference Range is dependent on time and content of last meal. Glucose of more than 200 mg/dL in a nonstressed, ambulatory subject supports the diagnosis of Diabetes Mellitus. Hematocrit Auto (Bld) [Volum e fraction]Ordered By: Joseluis Mejia on 10-06-2023 Hematocrit (Bld) [Volume fraction] 30.4 % 38.8-50.0 [facility] Hemoglobin [Mass/volume] in BloodOrdered By: Joseluis Mejia 10-06-2023 Hemoglobin (Bld) [Mass/Vol] 10.2 g/dL 13.0-17.0 [facility] INR in Platelet poor plasma by Coagulation assayOrdered By: Joseluis Mejia on 10-06-2023 INR Coag (PPP) [Relative time] 1.2 {INR} [facility] Comment on above: INR [...] 10-06-2023 Ketones (U) [Mass/Vol] Negative Negative [facility] Lactate [Moles/volume] in Se rum or PlasmaOrdered By: Kip Gutiérrez on 10-06-2023 Lactate [Moles/Vol] 1.5 mmol/L 0.5-2.2 [facility] Leukocytes [#/volume] correc johnnie for nucleated erythrocytes in Blood by Automated counOrdered By: Joseluis Mejia on 10-06-2023 WBC corrected for nucl RBC Auto (Bld) [#/Vol] 24.5 10*3/uL 4.1-10.5 [facility] Lymphocytes Auto (Bld) [#/Vo l]Ordered By: Joseluis Mejia on 10-06-2023 Lymphocytes (Bld) [#/Vol] N/A [facility] Lymphocytes/100 WBC Auto (Bl d)Ordered By: Joseluis Mejia on 10-06-2023 Lymphocytes/100 WBC (Bld) N/A [facility] Lymphocytes/100 WBC Manual c nt (Bld)Ordered By: Joseluis Mejia on 10-06-2023 Lymphocytes/100 WBC (Bld) 1 % 18-42 [facility] MCH Auto (RBC) [Entitic mass ]Ordered By: Joseluis Mejia on 10-06-2023 MCH (RBC) [Entitic mass] 29.0 pg 27.5-35.2 [facility] MCHC Auto (RBC) [Mass/Vol]Or dered By: Joseluis Mejia on 10-06-2023 MCHC (RBC) [Mass/Vol] 33.6 g/dL 32.5-35.6 [facility] MCV Auto (RBC) [Entitic vol] Ordered By: Joseluis Mejia on 10-06-2023 MCV (RBC) [Entitic vol] 86.3 fL 83.5-101 [facility] Magnesium [Mass/volume] in S sadi or PlasmaOrdered By: Joseluis Mejia on 10-06-2023 Magnesium [Mass/Vol] 2.0 mg/dL 1.9-2.[address] [facility] Microcytes LM Ql (Bld)Ordere d By: Joseluis Mejia on 10-06-2023 Microcytes Ql (Bld) Moderate [facility] Monocyte distribution width [Entitic volume] in Blood by AutomatedOrdered By: Joseluis Mejia on 10-06-2023 Monocyte distribution width Auto (Bld) [Entitic vol] 37.74 % 0.00-20.00 [facility] Comment on above: For adults in ED, MD W > 20.0 may be associated with a higher risk of sepsis during the first 12 hrs of hospital admissionThe predictive value of MDW for identifying sepsis in patients with hematological abnormalities has not been established Monocytes Auto (Bld) [#/Vol] Ordered By: Joseluis Mejia on 10-06-2023 Monocytes (Bld) [#/Vol] N/A [facility] Monocytes/100 WBC Auto (Bld) Ordered By: Joseluis Mejia on 10-06-2023 Monocytes/100 WBC (Bld) N/A [facility] Monocytes/100 WBC Manual cnt (Bld)Ordered By: Joseluis Mejia on 10-06-2023 Monocytes/100 WBC (Bld) 9 % 2-11 [facility] Natriuretic peptide B [Mass/ Vol]Ordered By: Joseluis Mejia on 10-06-2023 Natriuretic peptide B (Bld) [Mass/Vol] 436.0 pg/mL 5-100 [facility] Neutrophils Auto (Bld) [#/Vo l]Ordered By: Joseluis Mejia on 10-06-2023 Neutrophils (Bld) [#/Vol] N/A [facility] Neutrophils/100 WBC Auto (Bl d)Ordered By: Joseluis Mejia on 10-06-2023 Neutrophils/100 WBC (Bld) N/A [facility] Nitrite Test strip Ql (U)Ord ered By: Joseluis Mejia on 10-06-2023 Nitrite Ql (U) Negative Negative [facility] No Panel InformationOrdered By: Kip Gutiérrez on 10-06-2023 Bacterial ID (NA Multiplex Assay) Enterobacter cloacae complex [facility] No Panel InformationOrdered By: Joseluis Mejia on 10-06-2023 Estimated GFR (CKD-EPI) 55.701 mL/Min [facility] Creatinine Clearance (Chem 51.23 [facility] Nucleated erythrocytes [Pres ence] in Blood by Automated countOrdered By: Joseluis Mejia on 10-06-2023 Nucleated RBC Auto Ql (Bld) N/A [facility] Platelet adequacy [Presence] in Blood by Light microscopyOrdered By: Joseluis Mejia on 10-06-2023 Platelets LM Ql (Bld) Normal Normal [facility] Platelet mean volume Auto (B ld) [Entitic vol]Ordered By: Joseluis Mejia on 10-06-2023 Platelet mean volume (Bld) [Entitic vol] 10.2 fL 6.6-10.1 [facility] Platelet morphology finding [Identifier] in BloodOrdered By: Joseluis Mejia on 10-06-2023 Platelet morphology finding Nom (Bld) Normal Normal [facility] Platelets Auto (Bld) [#/Vol] Ordered By: Joseluis Mejia on 10-06-2023 Platelets (Bld) [#/Vol] 154 10*3/uL 150-450 [facility] Poikilocytosis [Presence] in Blood by Light microscopyOrdered By: Joseluis Mejia on 10-06-2023 Poikilocytosis LM Ql (Bld) Slight [facility] Polychromasia [Presence] in Blood by Light microscopyOrdered By: Joseluis Mejia on 10-06-2023 Polychromasia LM Ql (Bld) [facility] Potassium [Moles/volume] in Serum or PlasmaOrdered By: Joseluis Mejia on 10-06-2023 Potassium [Moles/Vol] 3.1 mmol/L 3.5-5.1 [facility] Protein Auto test strip (U) [Mass/Vol]Ordered By: Joseluis Mejia on 10-06-2023 Protein (U) [Mass/Vol] Negative Negative [facility] Protein [Mass/volume] in Ser um or PlasmaOrdered By: Joseluis Mejia on 10-06-2023 Protein [Mass/Vol] 6.0 g/dL 6.4-8.9 [facility] Prothrombin time (PT)Ordered By: Joseluis Mejia on 10-06-2023 PT Coag (PPP) [Time] 13.9 s 9.0-12.[address] [facility] Comment on above: A hematocrit value g reater than 55% may lead to inaccurate results in coagulation testing. Patients having hematocrit values >55% require a special collection tube for coagulation studies. Please contact the laboratory at [phone] for redraw instructions. RBC Auto (Bld) [#/Vol]Ordere d By: Joseluis Mejia on 10-06-2023 RBC (Bld) [#/Vol] 3.52 10*6/uL 3.90-5.60 [facility] RBC morphologyOrdered By: Monse Mejia on 10-06-2023 RBC morphology finding Nom (Bld) N/A [facility] Segmented neutrophils/100 WB C Manual cnt (Bld)Ordered By: Joseluis Mejia on 10-06-2023 Segmented neutrophils/100 WBC (Bld) 76 % 50-70 [facility] Serum or plasma albumin/glob ulin mass ratioOrdered By: Joseluis Mejia on 10-06-2023 Albumin/Globulin [Mass ratio] 1.1 {ratio} [facility] Serum or plasma anion gap de terminationOrdered By: Joseluis Mejia 10-06-2023 Anion gap [Moles/Vol] 14.1 mmol/L 6.0-15.0 [facility] Sodium [Moles/volume] in Ser um or PlasmaOrdered By: Joseluis Mejia 10-06-2023 Sodium [Moles/Vol] 135 mmol/L 136-145 [facility] Specific gravity Auto test s trip (U) [Rel density]Ordered By: Joseluis Mejia 10-06-2023 Specific gravity (U) [Rel density] 1.015 1.001-1.03 0 [facility] Troponin I.cardiac [Mass/vol ume] in Serum or Plasma by Detection limit <= 0.01 ng/Ordered By: Joseluis Mejia 10-06-2023 Troponin I.cardiac DL <= 0.01 ng/mL [Mass/Vol] 19.4 pg/mL 0.0-20.0 [facility] Urea nitrogen [Mass/volume] in Serum or PlasmaOrdered By: Joseluis Mejia 10-06-2023 Urea nitrogen [Mass/Vol] 34 mg/dL 7-25 [facility] Urine clarity by refractomet ry automatedOrdered By: Joseluis Mejia 10-06-2023 Clarity Refractometry automated (U) Clear Clear [facility] [...] 10-06-2023 Urobilinogen (U) [Mass/Vol] Normal mg/dL Normal [facility] WBC Auto (Bld) [#/Vol]Ordere d By: Joseluis Mejia on 10-06-2023 WBC (Bld) [#/Vol] 24.5 10*3/uL 4.1-10.5 [facility] pH Auto test strip (U)Ordere d By: Joseluis Mejia on 10-06-2023 pH (U) 5.0 [pH] 5.0-9.[address] [facility] [address] Abdomen and Pelvis W cont rast Amalia 10-01-2023 IMPRESSION: Metastatic neuroendocrine tumor with grossly stable, [...] any questions regarding this interpretation, please call [phone]. If you are unable to reach us at the number above, please feel free to contact [facility] at [phone]. DIVISION OF RADIOLOGY * * *Final Report* * * DATE [...] No splenomegaly. Pancreas: Confluent, infiltrative mass and/or anila metastases in the region of the central [...] distal small bowel with adjacent coarsely calcified anila metastasis measuring approximately 2.4 x 2.3 cm, [...] remaining bowel otherwise. Lymph nodes: Additional multifocal anila metastases, survey of the dominant lesions directly compared with recent priors, and not significantly changed, for example; * 2.0 x 1.8 cm left para-aortic node (8:53). * 2.3 x 2.0 cm left para-aortic node (8:47). * 3.6 x 2.3 cm periceliac node (8:35). Multifocal additional mesenteric anila masses as described elsewhere. Mesentery/Peritoneum: Minimal residual dependent ascites, improved from prior. No organized collection. Mesenteric stranding/edema with central mesenteric/peripancreati c anila mass as above and additional right lower quadrant anila metastases. 2.2 cm nodular scalloping along the [...] intramuscular lipomas incidentally noted. Lower thorax: Unremarkable. DIVISION OF RADIOLOGY Provider, [facility] - 10/01/[facility]23 * * *Final Report* * * DATE [...] No splenomegaly. Pancreas: Confluent, infiltrative mass and/or anila metastases in the region of the central [...] distal small bowel with adjacent coarsely calcified anila metastasis measuring approximately 2.4 x 2.3 cm, [...] remaining bowel otherwise. Lymph nodes: Additional multifocal anila metastases, survey of the dominant lesions directly compared with recent priors, and not significantly changed, for example; * 2.0 x 1.8 cm left para-aortic node (8:53). * 2.3 x 2.0 cm left para-aortic node (8:47). * 3.6 x 2.3 cm periceliac node (8:35). Multifocal additional mesenteric anila masses as described elsewhere. Mesentery/Peritoneum: Minimal residual dependent ascites, improved from prior. No organized collection. Mesenteric stranding/edema with central mesenteric/peripancreati c anila mass as above and additional right lower quadrant anila metastases. 2.2 cm nodular scalloping along the [...] intramuscular lipomas incidentally noted. Lower thorax: Unremarkable. IMPRESSION IMPRESSION: Metastatic neuroendocrine tumor with grossly stable, multifocal measurable disease from recent priors as detailed. Sclerotic osseous foci suspected metastatic and grossly unchanged. Percutaneous gastrojejunostomy remains in place, with mild proximal duodenal dilation, similar to recent prior. No gross inter (more content not included)... [facility] Rad[facility]ative[facility] Abdomen and Pelvis W cont rast IVOrdered By: [facility] Provider on 10-01-2023 [facility] Basophils Auto (Bld) [#/Vol] Ordered By: Gela Eller on 07-26-2023 Basophils (Bld) [#/Vol] 0.0 10*3/uL 0.0-0.2 [facility] Basophils/100 WBC Auto (Bld) Ordered By: Gela Eller on 07-26-2023 Basophils/100 WBC (Bld) 0.9 % . [facility] Calcium [Mass/volume] in Ser um or PlasmaOrdered By: Gela Eller on 07-26-2023 Calcium [Mass/Vol] 8.5 mg/dL 8.6-10.3 [facility] Carbon dioxide, total [Moles /volume] in Serum or PlasmaOrdered By: Gela Eller on 07-26-2023 CO2 [Moles/Vol] 26.0 mmol/L 21.0-31.0 [facility] Chloride [Moles/volume] in S sadi or PlasmaOrdered By: Gela Eller on 07-26-2023 Chloride [Moles/Vol] 105 mmol/L 98-[address] [facility] Creatinine [Mass/volume] in Serum or PlasmaOrdered By: Gela Eller on 07-26-2023 Creatinine [Mass/Vol] 1.71 mg/dL 0.70-1.30 [facility] Comment on above: Delta: 2.86 on [id number] Eosinophils Auto (Bld) [#/Vo l]Ordered By: Gela Eller on 07-26-2023 Eosinophils (Bld) [#/Vol] 0.4 10*3/uL 0.0-0.45 [facility] Eosinophils/100 WBC Auto (Bl d)Ordered By: Gela Rhoadese on 07-26-2023 Eosinophils/100 WBC (Bld) 7.7 % . [facility] Erythrocyte distribution wid th Auto (RBC) [Ratio]Ordered By: Gela Eller on 07-26-2023 Erythrocyte distribution width (RBC) [Ratio] 12.1 % 12.0-14.8 [facility] Glucose [Mass/volume] in Ser um or PlasmaOrdered By: Gela Eller on 07-26-2023 Glucose [Mass/Vol] 115 mg/dL 70-100 [facility] Comment on above: ADA recommended refe [...] 07-26-2023 MCHC (RBC) [Mass/Vol] 34.0 g/dL 32.5-35.6 [facility] MCV Auto (RBC) [Entitic vol] Ordered By: Gela Eller on 07-26-2023 MCV (RBC) [Entitic vol] 88.6 fL 83.5-101 [facility] Monocytes Auto (Bld) [#/Vol] Ordered By: Gela Eller on 07-26-2023 Monocytes (Bld) [#/Vol] 1.1 10*3/uL 0.0-0.8 [facility] Monocytes/100 WBC Auto (Bld) Ordered By: Gela Eller on 07-26-2023 Monocytes/100 WBC (Bld) 22.7 % . [facility] Neutrophils Auto (Bld) [#/Vo l]Ordered By: [...] on 07-26-2023 Potassium [Moles/Vol] 3.9 mmol/L 3.5-5.1 [facility] RBC Auto (Bld) [#/Vol]Ordere d By: Gela Rhoadese on 07-26-2023 RBC (Bld) [#/Vol] 3.52 10*6/uL 3.90-5.60 [facility] Serum or plasma anion gap de terminationOrdered By: Gela Rhoadese on 07-26-2023 Anion gap [Moles/Vol] 11.9 mmol/L 6.0-15.0 [facility] Sodium [Moles/volume] in Ser um or PlasmaOrdered By: Gela Rhoadese on 07-26-2023 Sodium [Moles/Vol] 139 mmol/L 136-145 [facility] Urea nitrogen [Mass/volume] in Serum or PlasmaOrdered By: Gela Rhoadese on 07-26-2023 Urea nitrogen [Mass/Vol] 29 mg/dL 7-25 [facility] WBC Auto (Bld) [#/Vol]Ordere d By: Gela Rhoadese on 07-26-2023 WBC (Bld) [#/Vol] 5.0 10*3/uL 4.1-10.5 [facility] Alanine aminotransferase [En zymatic activity/volume] in Serum or PlasmaOrdered By: Gela Eller on 07-25-2023 ALT [Catalytic activity/Vol] 9 U/L 7-52 [facility] Albumin [Mass/volume] in Ser um or Plasma by Bromocresol green (BCG) dye binding methoOrdered By: Gela Eller on 07-25-2023 Albumin BCG dye [Mass/Vol] 3.4 g/dL 3.5-5.7 [facility] Alkaline phosphatase [Enzyma tic activity/volume] in Serum or PlasmaOrdered By: Gela Veronae on 07-25-2023 ALP [Catalytic activity/Vol] 60 U/L 34-104 [facility] Aspartate aminotransferase [ Enzymatic activity/volume] in Serum or PlasmaOrdered By: Gela Noeskiene on 07-25-2023 AST [Catalytic activity/Vol] 16 U/L 13-39 [facility] Bilirubin.total [Mass/volume ] in Serum or PlasmaOrdered By: Gela Rhoadese on 07-25-2023 Bilirubin [Mass/Vol] 0.7 mg/dL 0.3-1.[address] [facility] Globulin Calc (S) [Mass/Vol] Ordered By: Gela Eller on 07-25-2023 Globulin (S) [Mass/Vol] 2.7 g/dL [facility] Protein [Mass/volume] in Ser um or PlasmaOrdered By: Gela Eller on 07-25-2023 Protein [Mass/Vol] 6.1 g/dL 6.4-8.9 [facility] Comment on above: Delta: 7.8 on Serum or plasma albumin/glob ulin mass ratioOrdered By: Gela Eller on 07-25-2023 Albumin/Globulin [Mass ratio] 1.3 {ratio} [facility] Alanine aminotransferase [En zymatic activity/volume] in Serum or PlasmaOrdered By: Kip Gutiérrez on 07-24-2023 ALT [Catalytic activity/Vol] 12 U/L 7-52 [facility] Albumin [Mass/volume] in Ser um or Plasma by Bromocresol green (BCG) dye binding methoOrdered By: Kip Gutiérrez on 07-24-2023 Albumin BCG dye [Mass/Vol] 4.3 g/dL 3.5-5.7 [facility] Alkaline phosphatase [Enzyma tic activity/volume] in Serum or PlasmaOrdered By: Kip Gutiérrez on 07-24-2023 ALP [Catalytic activity/Vol] 72 U/L 34-104 [facility] Aspartate aminotransferase [ Enzymatic activity/volume] in Serum or PlasmaOrdered By: Kip Gutiérrez on 07-24-2023 AST [Catalytic activity/Vol] 24 U/L 13-39 [facility] Automated erythrocytes count in urine sediment (number/area)Ordered By: Kip Gutiérrez on 07-24-2023 RBC Auto (Urine sed) [#/Area] 5-9 [HPF] 0-4 [facility] Automated leukocytes count i n urine sediment (number/area)Ordered By: Kip Gutiérrez on 07-24-2023 WBC Auto (Urine sed) [#/Area] 0-1 [HPF] 0-4 [facility] Basophils Auto (Bld) [#/Vol] Ordered By: Kip Gutiérrez on 07-24-2023 Basophils (Bld) [#/Vol] 0.0 10*3/uL 0.0-0.2 [facility] Basophils/100 WBC Auto (Bld) Ordered By: Kip Gutiérrez on 07-24-2023 Basophils/100 WBC (Bld) 0.5 % . [facility] Bilirubin Test strip Ql (U)O rdered By: Kip Gutiérrez on 07-24-2023 Bilirubin Ql (U) Negative Negative [facility] Bilirubin.direct [Mass/volum e] in Serum or PlasmaOrdered By: Kip Gutiérrez on 07-24-2023 Bilirubin.direct [Mass/Vol] 0.20 mg/dL 0.03-0.18 [facility] Bilirubin.total [Mass/volume ] in Serum or PlasmaOrdered By: Kip Gutiérrez on 07-24-2023 Bilirubin [Mass/Vol] 0.8 mg/dL 0.3-1.[address] [facility] Calcium [Mass/volume] in Ser um or PlasmaOrdered By: Kip Gutiérrez on 07-24-2023 Calcium [Mass/Vol] 9.6 mg/dL 8.6-10.3 [facility] Carbon dioxide, total [Moles /volume] in Serum or PlasmaOrdered By: Kip Gutiérrez on 07-24-2023 CO2 [Moles/Vol] 34.9 mmol/L 21.0-31.0 [facility] Chloride [Moles/volume] in S sadi or PlasmaOrdered By: Kip Gutiérrez on 07-24-2023 Chloride [Moles/Vol] 84 mmol/L 98-[address] [facility] Color Auto (U)Ordered By: Vincent Gutiérrez on 07-24-2023 Color (U) Yellow Yellow [facility] Creatinine [Mass/volume] in Serum or PlasmaOrdered By: Kip Gutiérrez on 07-24-2023 Creatinine [Mass/Vol] 4.59 mg/dL 0.70-1.30 [facility] Creatinine [Mass/volume] in UrineOrdered By: Gela Eller on 07-24-2023 Creatinine (U) [Mass/Vol] 141.0 mg/dL 14.0-26.0 [facility] Eosinophils Auto (Bld) [#/Vo l]Ordered By: Kip Gutiérrez on 07-24-2023 Eosinophils (Bld) [#/Vol] 0.1 10*3/uL 0.0-0.45 [facility] Eosinophils/100 WBC Auto (Bl d)Ordered By: Kip Gutiérrez on 07-24-2023 Eosinophils/100 WBC (Bld) 1.0 % . [facility] Erythrocyte distribution wid th Auto (RBC) [Ratio]Ordered By: Kip Gutiérrez on 07-24-2023 Erythrocyte distribution width (RBC) [Ratio] 12.4 % 12.0-14.8 [facility] Globulin Calc (S) [Mass/Vol] Ordered By: Kip Gutiérrez on 07-24-2023 Globulin (S) [Mass/Vol] 3.5 g/dL [facility] Glucose [Mass/volume] in Ser um or PlasmaOrdered By: Kip Gutiérrez on 07-24-2023 Glucose [Mass/Vol] 128 mg/dL 70-100 [facility] Comment on above: ADA recommended refe rence rangeRandom Glucose Reference Range is dependent on time and content of last meal. Glucose of more than 200 mg/dL in a nonstressed, ambulatory subject supports the diagnosis of Diabetes Mellitus. Hematocrit Auto (Bld) [Volum e fraction]Ordered By: Kip Gutiérrez on 07-24-2023 Hematocrit (Bld) [Volume fraction] 40.5 % 38.8-50.0 [facility] Hemoglobin [Mass/volume] in BloodOrdered By: Kip Gutiérrez on 07-24-2023 Hemoglobin (Bld) [Mass/Vol] 13.7 g/dL 13.0-17.0 [facility] INR in Platelet poor plasma by Coagulation assayOrdered By: Kip Gutiérrez on 07-24-2023 INR Coag (PPP) [Relative [...] Ketones Auto test strip (U) [Mass/Vol]Ordered By: Kip Gutiérrez on 07-24-2023 Ketones (U) [Mass/Vol] Trace Negative [facility] - UrinalysisOrder ed By: Kip Gutiérrez on 07-24-2023 Hyaline casts LM Ql (Urine sed) None seen [LPF] 0-8 [facility] Leukocytes [#/volume] correc johnnie for nucleated erythrocytes in Blood by Automated counOrdered By: Kip Gutiérrez on 07-24-2023 WBC corrected for nucl RBC Auto (Bld) [#/Vol] 7.3 10*3/uL 4.1-10.5 [facility] Lipase [Enzymatic activity/v olume] in Serum or PlasmaOrdered By: Kip Gutiérrez on 07-24-2023 Lipase [Catalytic activity/Vol] 90.0 U/L 11.0-82.0 [facility] Lymphocytes Auto (Bld) [#/Vo l]Ordered By: Kip Gutiérrez on 07-24-2023 Lymphocytes (Bld) [#/Vol] 0.9 10*3/uL 1.00-4.8 [facility] Lymphocytes/100 WBC Auto (Bl d)Ordered By: Kip Gutiérrez on 07-24-2023 Lymphocytes/100 WBC (Bld) 12.6 % . [facility] MCH Auto (RBC) [Entitic mass ]Ordered By: Kip Gutiérrez on 07-24-2023 MCH (RBC) [Entitic mass] 29.8 pg 27.5-35.2 [facility] MCHC Auto (RBC) [Mass/Vol]Or dered By: Kip Gutiérrez on 07-24-2023 MCHC (RBC) [Mass/Vol] 33.8 g/dL 32.5-35.6 [facility] MCV Auto (RBC) [Entitic vol] Ordered By: Kip Gutiérrez on 07-24-2023 MCV (RBC) [Entitic vol] 88.1 fL 83.5-101 [facility] Magnesium [Mass/volume] in S sadi or PlasmaOrdered By: Gela Eller on 07-24-2023 Magnesium [Mass/Vol] 2.1 mg/dL 1.9-2.[address] [facility] Monocyte distribution width [Entitic volume] in Blood by AutomatedOrdered By: Kip Gutiérrez on 07-24-2023 Monocyte distribution width Auto (Bld) [Entitic vol] 21.73 % 0.00-20.00 [facility] Comment on above: For adults in ED, MD W > 20.0 may be associated with a higher risk of sepsis during the first 12 hrs of hospital admission Monocytes Auto (Bld) [#/Vol] Ordered By: Kip Gutiérrez on 07-24-2023 Monocytes (Bld) [#/Vol] 0.8 10*3/uL 0.0-0.8 [facility] Monocytes/100 WBC Auto (Bld) Ordered By: Kip Gutiérrez on 07-24-2023 Monocytes/100 WBC (Bld) 10.3 % . [facility] Neutrophils Auto (Bld) [#/Vo l]Ordered By: Kip Gutiérrez on 07-24-2023 Neutrophils (Bld) [#/Vol] 5.5 10*3/uL 1.8-7.7 [facility] Neutrophils/100 WBC Auto (Bl d)Ordered By: Kip Gutiérrez on 07-24-2023 Neutrophils/100 WBC (Bld) 75.6 % . [facility] Nitrite Test strip Ql (U)Ord ered By: Kip Gutiérrez on 07-24-2023 Nitrite Ql (U) Negative Negative [facility] No Panel InformationOrdered By: Kip Gutiérrez on 07-24-2023 Estimated GFR (CKD-EPI) 13.168 mL/Min [facility] Creatinine Clearance (Chem 15.40 [facility] Nucleated erythrocytes [Pres ence] in Blood by Automated countOrdered By: Kip Gutiérrez on 07-24-2023 Nucleated RBC Auto Ql (Bld) 0.2 /100{WBC} 0-0.5 [facility] Platelet mean volume Auto (B ld) [Entitic vol]Ordered By: Kip Gutiérrez on 07-24-2023 Platelet mean volume (Bld) [Entitic vol] 10.8 fL 6.6-10.1 [facility] Platelets Auto (Bld) [#/Vol] Ordered By: Kip Gutiérrez on 07-24-2023 Platelets (Bld) [#/Vol] 256 10*3/uL 150-450 [facility] Potassium [Moles/volume] in Serum or PlasmaOrdered By: Kip Gutiérrez on 07-24-2023 Potassium [Moles/Vol] 2.9 mmol/L 3.5-5.1 [facility] Comment on above: Critical Result Call ed to and read back by: ANDREAS CARABALLO at: 07/24/2023 13:30:58 by:MLG Protein Auto test strip (U) [Mass/Vol]Ordered By: Kip Gutiérrez on 07-24-2023 Protein (U) [Mass/Vol] 30 mg/dL Negative [facility] Protein [Mass/volume] in Ser um or PlasmaOrdered By: Kip Gutiérrez on 07-24-2023 Protein [Mass/Vol] 7.8 g/dL 6.4-8.9 [facility] Prothrombin time (PT)Ordered By: Kip Gutiérrez on 07-24-2023 PT Coag (PPP) [Time] 12.2 s 9.0-12.[address] [facility] Comment on above: A hematocrit value g reater than 55% may lead to inaccurate results in coagulation testing. Patients having hematocrit values >55% require a special collection tube for coagulation studies. Please contact the laboratory at [phone] for redraw instructions. RBC Auto (Bld) [#/Vol]Ordere d By: Kip Gutiérrez on 07-24-2023 RBC (Bld) [#/Vol] 4.60 10*6/uL 3.90-5.60 [facility] Serum or plasma albumin/glob ulin mass ratioOrdered By: Kip Gutiérrez on 07-24-2023 Albumin/Globulin [Mass ratio] 1.2 {ratio} [facility] Serum or plasma anion gap de terminationOrdered By: Kip Gutiérrez on 07-24-2023 Anion gap [Moles/Vol] 18.0 mmol/L 6.0-15.0 [facility] Serum or plasma non-glucuron idated bilirubin measurement (mass/volume)Ordered By: Kip Gutiérrez on 07-24-2023 Bilirubin.indirect [Mass/Vol] 0.6 mg/dL [facility] Sodium [Moles/volume] in Ser um or PlasmaOrdered By: Kip Gutiérrez on 07-24-2023 Sodium [Moles/Vol] 134 mmol/L 136-145 [facility] Sodium [Moles/volume] in Uri neOrdered By: Gela Eller on 07-24-2023 Sodium (U) [Moles/Vol] 41 mmol/L [facility] Comment on above: No reference range e stablished Specific gravity Auto test s trip (U) [Rel density]Ordered By: Kip Gutiérrez on 07-24-2023 Specific gravity (U) [Rel density] 1.015 1.001-1.03 0 [facility] Squamous epithelial cells de tection in urine sediment by light microscopyOrdered By: Kip Gutiérrez on 07-24-2023 Epithelial cells.squamous LM Ql (Urine sed) None seen [HPF] 0-2 [facility] Troponin I.cardiac [Mass/vol ume] in Serum or Plasma by Detection limit <= 0.01 ng/Ordered By: Kip Gutiérrez on 07-24-2023 Troponin I.cardiac DL <= 0.01 ng/mL [Mass/Vol] 11.8 pg/mL 0.0-20.0 [facility] Urea nitrogen [Mass/volume] in Serum or PlasmaOrdered By: Kip Gutiérrez on 07-24-2023 Urea nitrogen [Mass/Vol] 56 mg/dL 7-25 [facility] Urine bacteria detection by automated methodOrdered By: Kip Gutiérrez on 07-24-2023 Bacteria Auto Ql (U) None seen None Seen [facility] Urine clarity by refractomet ry automatedOrdered By: Kip Gutiérrez on 07-24-2023 Clarity Refractometry automated (U) Clear Clear [facility] Urine glucose measurement by automated test strip (mass/volume)Ordered By: Kip Gutiérrez on 07-24-2023 Glucose Auto test strip (U) [Mass/Vol] Normal mg/dL Normal [facility] Urine hemoglobin detection b y automated test stripOrdered By: Kip Gutiérrez on 07-24-2023 Hemoglobin Auto test strip Ql (U) Negative Negative [facility] Urine leukocyte esterase det ection by automated test stripOrdered By: Kip Gutiérrez on 07-24-2023 Leukocyte esterase Auto test strip Ql (U) Negative Negative [facility] Urobilinogen Auto test strip (U) [Mass/Vol]Ordered By: Kip Gutiérrez on 07-24-2023 Urobilinogen (U) [Mass/Vol] Normal mg/dL Normal [facility] WBC Auto (Bld) [#/Vol]Ordere d By: Kip Gutiérrez on 07-24-2023 WBC (Bld) [#/Vol] 7.3 10*3/uL 4.1-10.5 [facility] pH Auto test strip (U)Ordere d By: Kip Gutiérrez on 07-24-2023 pH (U) 5.5 [pH] 5.0-9.0 [facility] Tobacco Screening.on 023 Tobacco use status CPHS b) No M P[facility]Located [facility] [address] DO Work Phone: Activated partial thrombopla stin time (aPTT) in platelet poor plasma by coagulation aOrdered By: Joselito Madsen on 01-15-2023 aPTT Coag (PPP) [Time] 29.1 s 25.1-36.5 [facility] Basophils Auto (Bld) [#/Vol] Ordered By: Joselito Madsen on 01-15-2023 Basophils (Bld) [#/Vol] 0.0 10*3/uL 0.0-0.2 [facility] Basophils/100 WBC Auto (Bld) Ordered By: Joselito Madsen on 01-15-2023 Basophils/100 WBC (Bld) 0.7 % . [facility] Carbon dioxide, total [Moles /volume] in Serum or PlasmaOrdered By: Joselito Madsen on 01-15-2023 CO2 [Moles/Vol] 24.1 mmol/L 21.0-31.0 [facility] Chloride [Moles/volume] in S sadi or PlasmaOrdered By: Joselito Madsen on 01-15-2023 Chloride [Moles/Vol] 108 mmol/L 98-[address] [facility] Cholesterol [Mass/volume] in Serum or PlasmaOrdered By: Joselito Madsen on 01-15-2023 Cholesterol [Mass/Vol] 123 mg/dL 140-200 [facility] Comment on above: Chol less than [...] in VLDL [Mass/Vol] 10 mg/dL [facility] Creatinine [Mass/volume] in Serum or PlasmaOrdered By: Joselito Madsen on 01-15-2023 Creatinine [Mass/Vol] 1.22 mg/dL 0.70-1.30 [facility] Eosinophils Auto (Bld) [#/Vo l]Ordered By: Joselito [...] Cholesterol [Mass/Vol] 123\S\123 below low threshold 140-200 MP[facility]Located [facility] 250 DO Work Phone: Comment on above: Chol less than 200 m g/dl low risk Chol 201-239 mg/dl borderline risk Chol 240 mg/dl and greater high risk Cholesterol in LDL [Mass/Vol] 49\S\49 Normal 0-100 MP[facility] 250 DO Work Phone: Comment on above: LDL ATP III CLASSIFI CATION LDL less than 100 mg/dL Optimal LDL 100-129 mg/dL Near or above optimal LDL 130-159 mg/dL Borderline high LDL 160-189 mg/dL High LDL greater than 189 mg/dL Very high Laboratory - CoagulationOrde red By: Joselito Madsen on 01-15-2023 PT Coag (PPP) [Time] 11.0 s 9.0-12.[address] [facility] Leukocytes [#/volume] correc johnnie for nucleated erythrocytes in Blood by Automated counOrdered By: Joselito Madsen on 01-15-2023 WBC corrected for nucl RBC Auto (Bld) [#/Vol] 5.0 10*3/uL 4.1-10.5 [facility] Lymphocytes Auto (Bld) [#/Vo l]Ordered By: Joselito [...] 01-15-2023 MCHC (RBC) [Mass/Vol] 32.7 g/dL 32.5-35.6 [facility] MCV Auto (RBC) [Entitic vol] Ordered By: Joselito Madsen on 01-15-2023 MCV (RBC) [Entitic vol] 89.1 fL 83.5-101 [facility] Monocytes Auto (Bld) [#/Vol] Ordered By: Joselito Madsen on 01-15-2023 Monocytes (Bld) [#/Vol] 0.9 10*3/uL 0.0-0.8 [facility] Monocytes/100 WBC Auto (Bld) Ordered By: Joselito Madsen on 01-15-2023 Monocytes/100 WBC (Bld) 17.1 % . [facility] Neutrophils Auto (Bld) [#/Vo l]Ordered By: [...] No Panel Informationon 01-15 0.0\S\0.0 Normal 0.0-0.2 [facility] y 250 DO Work Phone: Comment on above: PERFORMED BY:[place] [id number] [address] [place], [place] [phone] MEDICAL DIRECTORRAHEL TREVINO M.D. 0.5\S\0.5 above high threshold 0.0-0.45 [facility] y 250 DO Work Phone: 0.9\S\0.9 above high threshold 0.0-0.8 [facility] y 250 DO Work Phone: 1.0\S\1.[address] [facility] y 250 DO Work Phone: Comment [...] valves: 3 - 4.5 2.7\S\2.7 Normal 1.8-7.7 [facility] 250 DO Work Phone: [phone] 0.1\S\0.1 Normal 0-0.5 [facility] 250 DO Work Phone: 0.7\S\0.7 Normal . [facility] 250 DO Work Phone: 9.6\S\9.6 Normal . [facility] 250 DO Work Phone: [phone] 17.1\S\17.1 Normal . [facility] 250 DO Work Phone: 19.2\S\19.2 Normal . [facility] 250 DO Work Phone: [phone] 53.4\S\53.4 Normal . [facility] 250 DO Work Phone: [phone] 9.0\S\9.0 Normal 6.6-10.1 [facility] 250 DO Work Phone: [phone] 170\S\170 Normal 150-450 [facility] 250 DO Work Phone: 13.3\S\13.3 Normal 12.0-14.8 [facility] 250 DO Work Phone: [phone] 32.7\S\32.7 Normal 32.5-35.6 [facility] 250 DO Work Phone: [phone] 29.2\S\29.2 Normal 27.5-35.2 [facility] 250 DO Work Phone: [phone] 89.1\S\89.1 Normal 83.5-101 [facility] 250 DO Work Phone: [phone] 38.8\S\38.8 Normal 38.8-50.0 [facility] 250 DO Work Phone: [phone] 12.7\S\12.7 below low threshold 13.0-17.0 [facility] 250 DO Work Phone: 4.36\S\4.36 Normal 3.90-5.60 [facility] 250 DO Work Phone: [phone] 5.0\S\5.0 Normal 4.1-10.5 [facility] 250 DO Work Phone: [phone] 29.1\S\29.1 Normal 25.1-36.5 [facility] 250 DO Work Phone: [phone] Comment on above: PERFORMED BY:[id number] [place], [place] [phone] MEDICAL DIRECTORRAHEL TREVINO M.D. 11.0\S\11.0 Normal 9.0-12.9 [facility] 250 DO Work Phone: [phone] 10.5\S\10.5 Normal 6.0-15.0 [facility] 250 DO Work Phone: [phone] 24.1\S\24.1 Normal 21.0-31.0 [facility] 250 DO Work Phone: [phone] 108\S\108 above high threshold 98-107 [facility] 250 DO Work Phone: [phone] 4.6\S\4.6 Normal 3.5-5.1 [facility] 250 DO Work Phone: [phone] 138\S\138 Normal 136-145 [facility] 250 DO Work Phone: [phone] 19\S\19 Normal 7-25 [facility] 250 DO Work Phone: > 60.0 Normal [facility] 250 DO Work Phone: [phone] 1.22\S\1.22 Normal 0.70-1.30 [facility] 250 DO Work Phone: [phone] 1.9\S\1.9 Normal <5.0 [facility] 250 DO Work Phone: Comment on above: PERFORMED BY:[place] [address] [address] [place], [place] [phone] MEDICAL DIRECTORRAHEL TREVINO M.D. 10\S\10 Normal [facility] y 250 DO Work Phone: 51\S\51 Normal 0-149 [facility] Y[facility] cosme 250 DO Work Phone: Comment on above: TRIG ATP III CLASSIF ICATION TRIG less than 150 mg/dL Normal TRIG 150-199 mg/dL Borderline high TRIG 200-500 mg/dL High TRIG greater than 500 mg/dL Very high Standard traceable to the Center for Disease Conrtrol and Prevention (CDC) test method. 64\S\64 Normal 29-71 [facility] y 250 DO Work Phone: Comment on [...] on 01-15-2023 Potassium [Moles/Vol] 4.6 mmol/L 3.5-5.1 [facility] RBC Auto (Bld) [#/Vol]Ordere d By: Joselito Madsen on 01-15-2023 RBC (Bld) [#/Vol] 4.36 10*6/uL 3.90-5.60 [facility] Serum or plasma anion gap de terminationOrdered By: Joselito Madsen on 01-15-2023 Anion gap [Moles/Vol] 10.5 mmol/L 6.0-15.0 [facility] Serum or plasma high density lipoprotein [...] on 01-15-2023 Sodium [Moles/Vol] 138 mmol/L 136-145 [facility] Triglyceride [Mass/volume] i n Serum or PlasmaOrdered By: Joselito Madsen on 01-15-2023 Triglyceride [Mass/Vol] 51 mg/dL 0-149 [facility] Comment on above: TRIG ATP III [...] 01-15-2023 WBC (Bld) [#/Vol] 5.0 10*3/uL 4.1-10.5 [facility] Tobacco Screening.on 023 Adult depression screening assessment No [facility] 250 DO Work Phone: Fall risk assessment a) No falls within the last year [facility] 250 DO Work Phone: Tobacco use status CPHS b) No M [facility] 250 DO Work Phone: EVENT MONITORon 12-13-2021 [place] [address] EVENT MONITOR PATIENT NAME: AISHA JULIEN : 1955 MED REC NO: [id number] ROOM: ACCOUNT NO: [id number] ADMIT DATE: 11/07/2021 PROVIDER: Inocencio Gutierrez NAME [...] could be executed for symptom control. INOCENCIO MATT GV/V_TTHEN_I Doc#: [id number] CC: Rene Cannon [facility] CARDIAC STRESS TESTon 2021 [place] [address] CARDIAC STRESS TEST PATIENT NAME: AISHA JULIEN : 1955 MED REC NO: [id number] ROOM: ACCOUNT NO: [id number] ADMIT DATE: 11/07/2021 PROVIDER: Inocencio Gutierrez DATE [...] remained at 96%. INOCENCIO GUTIERREZ GV/V_TTRMM_I Doc#: [id number] CC: Rene Cannon [facility] CARDIAC STRESS TESTon 2021 [place] [address] CARDIAC STRESS TEST PATIENT NAME: AISHA JULIEN : 1955 MED REC NO: [id number] ROOM: ACCOUNT NO: [id number] ADMIT DATE: 11/07/2021 PROVIDER: Karina Fajardo MD [...] MD LAURYN/CIARAN_RALF Doc#: Unknown CC: Rene Gutierrez [facility] NM MYOCARDIAL SPECT REST EXE RCISE OR RXon 11-07-2021 NM MYOCARDIAL SPECT REST EXERCISE OR RX Radiology exam is complete. No Radiologist dictation. Please follow up with ordering provider. Final result [facility] No Panel Informationon 11-07 Radiology exam is complete. No Radiologist dictation. Please follow up with ordering provider. [facility] STRESS TEST REPORTon 022 Karina Fajardo MD - 11/07/2021 1:54 PM EDT [place] [id number] CARDIAC STRESS TEST PATIENT NAME: AISHA JULIEN : 1955 MED REC NO: [id number] ROOM: ACCOUNT NO: [id number] ADMIT DATE: 11/07/2021 PROVIDER: Karina Fajardo MD [...] Dr. Gutierrez on 11/07/2021. KARINA FAJARDO MD LAURYN/LONNIE Doc#: Unknown CC: Rene Gutierrez [facility] [employer] Work Phone: [facility] Phone: VL DUP CAROTID BILATERALon 0 11-07-2021 VL DUP CAROTID BILATERAL Radiology exam is complete. No Radiologist dictation. Please follow up with ordering provider. Final result Normal [facility] Bryan Pichardo Jr., MD - 11/08/2021 [facility] Vascular Carotid Procedure Patient Name WILY LEONARD Date of Study 11/07/2021 L Date of 1955 Gender Male Age 66 year(s) Race Room Number Corporate ID [id number] # Patient Acct [id number] # MR # [id number] Outbound Sales Consultant RT Gómez Interpreting Estephania Pichardo Physician Referring Referring Physician RENE CANNON, Nurse RACHEL* Practitioner ELA RIDDLE * Procedure Type of [...] side. - Additional Measurements:ICAPSV/CCAP SV 0.63.ICAEDV/CCAEDV 1.31. [employer] Work Phone: Radiology Study observation (narrative) [employer] Work Phone: VL DUP CAROTID BILATERALOrde red By: Bryan Pichardo on 11-07-2021 [employer] Work Phone: XR CHEST 2 Von 10-31-2021 [...] by: DEBORAH PERALTA Date: 2021-10-31 13:46 Normal [facility] Complete Blood Count with Au to Diffon 02-22-2022 Basophils (Bld) [#/Vol] 0.04 10*3/uL Normal 0.00-0.20 [facility] [employer] Machinist Comment on above: Performed By: #### C MP, TSH reflex FT4, CBCAD, MG, VITD, LIPD #### [facility] [address], [place] [id number] Basophils/100 WBC (Bld) 0.7 % Normal N [facility] Specialist Comment on above: Performed By: #### C MP, TSH reflex FT4, CBCAD, MG, VITD, LIPD #### [facility] [address], [place] [id number] Eosinophils (Bld) [#/Vol] 0.12 10*3/uL Normal 0.02-0.50 [facility] Specialist Comment on above: Performed By: #### C MP, TSH reflex FT4, CBCAD, MG, VITD, LIPD #### [facility] [address], [place] [id number] Eosinophils/100 WBC (Bld) 2.2 % Normal [facility] Specialist Comment on above: Performed By: #### C MP, TSH reflex FT4, CBCAD, MG, VITD, LIPD #### [facility] [address], [place] [id number] Erythrocyte distribution width (RBC) [Ratio] 14.5 % Normal 11.0-15.0 [facility] Specialist Comment on above: Performed By: #### C MP, TSH reflex FT4, CBCAD, MG, VITD, LIPD #### [facility] [address], [place] [id number] Hematocrit (Bld) [Volume fraction] 38.2 % Low 38.5-50.0 [facility] Specialist Comment on above: Performed By: #### C MP, TSH reflex FT4, CBCAD, MG, VITD, LIPD #### [facility] [address], [place] [id number] Hemoglobin (Bld) [Mass/Vol] 12.3 g/dL Low 13.0-17.1 [facility] [employer] Mach[employer] Comment on above: Performed By: #### C MP, TSH reflex FT4, CBCAD, MG, VITD, LIPD #### [facility] [address], [place] [id number] Lymphocytes (Bld) [#/Vol] 1.2 10*3/uL Normal 0.9-3.9 [facility] Comment on above: Performed By: #### C MP, TSH reflex FT4, CBCAD, MG, VITD, LIPD #### [facility] [address], [place] [id number] Lymphocytes/100 WBC (Bld) 22.1 % Normal [facility] Comment on above: Performed By: #### C MP, TSH reflex FT4, CBCAD, MG, VITD, LIPD #### [facility] [address], [place] [id number] MCH (RBC) [Entitic mass] 29.4 pg Normal 27.0-33.0 [facility] Comment on above: Performed By: #### C MP, TSH reflex FT4, CBCAD, MG, VITD, LIPD #### [facility] [address], [place] [id number] MCHC (RBC) [Mass/Vol] 32.2 g/dL Normal 32.0-36.0 [facility] Comment on above: Performed By: #### C MP, TSH reflex FT4, CBCAD, MG, VITD, LIPD #### [facility] [address], [place] [id number] MCV (RBC) [Entitic vol] 91 fL Normal 80-100 N [facility] Comment on above: Performed By: #### C MP, TSH reflex FT4, CBCAD, MG, VITD, LIPD #### [facility] [address], [place] [id number] Monocytes (Bld) [#/Vol] 0.9 10*3/uL Normal 0.2-0.9 [facility] Comment on above: Performed By: #### C MP, TSH reflex FT4, CBCAD, MG, VITD, LIPD #### [facility] [address], [place] [id number] Monocytes/100 WBC (Bld) 16.4 % Normal N [facility] Comment on above: Performed By: #### C MP, TSH reflex FT4, CBCAD, MG, VITD, LIPD #### [facility] [address], [place] [id number] Neutrophils (Bld) [#/Vol] 3.1 10*3/uL Normal 1.5-7.8 [facility] Specialist Comment on above: Performed By: #### C MP, TSH reflex FT4, CBCAD, MG, VITD, LIPD #### [facility] [address], [place] [id number] Neutrophils/100 WBC (Bld) 57.5 % Normal [facility] Comment on above: Performed By: #### C MP, TSH reflex FT4, CBCAD, MG, VITD, LIPD #### [facility] [address], [place] [id number] Platelet mean volume (Bld) [Entitic vol] 10.30 fL Normal 7.50-12.50 [facility] Comment on above: Performed By: #### C MP, TSH reflex FT4, CBCAD, MG, VITD, LIPD #### [facility] [address], [place] [id number] Platelets (Bld) [#/Vol] 266 10*3/uL Normal 140-400 [facility] Specialist Comment on above: Performed By: #### C MP, TSH reflex FT4, CBCAD, MG, VITD, LIPD #### [facility] [address], [place] [id number] RBC (Bld) [#/Vol] 4.19 10*6/uL Low 4.20-5.80 [facility] Comment on above: Performed By: #### C MP, TSH reflex FT4, CBCAD, MG, VITD, LIPD #### [facility] [address], [place] [id number] RDW-SD 48.1 fL Normal 37.0-50.0 [facility] Specialist Comment on above: Performed By: #### C MP, TSH reflex FT4, CBCAD, MG, VITD, LIPD #### [facility] [address], [place] [id number] WBC (Bld) [#/Vol] 5.4 10*3/uL Normal 3.8-11.0 Roger r[facility] [place] [employer] Comment on above: Performed By: #### C MP, TSH reflex FT4, CBCAD, MG, VITD, LIPD #### [facility] [address], [place] [id number] Comprehensive Metabolic Pane jefry 10-16-2021 Albumin [Mass/Vol] 4.2 g/dL Normal 3.6-5.1 [facility] [place] [employer] Comment on above: Performed By: #### C MP, TSH reflex FT4, CBCAD, MG, VITD, LIPD #### [facility] [address], [place] [id number] Albumin/Globulin [Mass ratio] 1.6 {ratio} Normal 1.0-2.5 [facility] Specialist Comment on above: Performed By: #### C MP, TSH reflex FT4, CBCAD, MG, VITD, LIPD #### [facility] [address], [place] [id number] ALP [Catalytic activity/Vol] 103 U/L Normal 40-129 [facility] Specialist Comment on above: Performed By: #### C MP, TSH reflex FT4, CBCAD, MG, VITD, LIPD #### [facility] [address], [place] [id number] ALT [Catalytic activity/Vol] 11 U/L Normal 9-46 [facility] Specialist Comment on above: Result Comment: 07/25 Female reference range changed. Performed By: #### C MP, TSH reflex FT4, CBCAD, MG, VITD, LIPD #### [facility] [address], [place] [id number] Anion gap [Moles/Vol] 19 mmol/L Normal 12-20 [facility] Specialist Comment on above: Result Comment: Effe ctive 08/30/2019 reference range changed. Performed By: #### C MP, TSH reflex FT4, CBCAD, MG, VITD, LIPD #### [facility] [address], [place] [id number] AST [Catalytic activity/Vol] 17 U/L Normal 10-40 [facility] Comment on above: Performed By: #### C MP, TSH reflex FT4, CBCAD, MG, VITD, LIPD #### [facility] [address], [place] [id number] Bilirubin [Mass/Vol] 0.37 mg/dL Normal 0.30-1.20 [facility] Comment on above: Performed By: #### C MP, TSH reflex FT4, CBCAD, MG, VITD, LIPD #### [facility] [address], [place] [id number] BUN/CREA 15 Ratio Normal 6-22 [facility] Comment on above: Performed By: #### C MP, TSH reflex FT4, CBCAD, MG, VITD, LIPD #### [facility] [address], [place] [id number] Calcium [Mass/Vol] 9.5 mg/dL Normal 8.6-10.2 [facility] Comment on above: Performed By: #### C MP, TSH reflex FT4, CBCAD, MG, VITD, LIPD #### [facility] [address], [place] [id number] Chloride [Moles/Vol] 104 mmol/L Normal 98-107 [facility] Comment on above: Performed By: #### C MP, TSH reflex FT4, CBCAD, MG, VITD, LIPD #### [facility] [address], [place] [id number] CO2 [Moles/Vol] 21 mmol/L Normal 20-31 [facility] Comment on above: Performed By: #### C MP, TSH reflex FT4, CBCAD, MG, VITD, LIPD #### [facility] [address], [place] [id number] Creatinine [Mass/Vol] 0.9 mg/dL Normal 0.7-1.4 [facility] Comment on above: Performed By: #### C MP, TSH reflex FT4, CBCAD, MG, VITD, LIPD #### [facility] [address], [place] [id number] eGFRAA 100 mL/min/1.73m2 Normal >60 [facility] Specialist Comment on above: Performed By: #### C MP, TSH reflex FT4, CBCAD, MG, VITD, LIPD #### [facility] [address], [place] [id number] eGFRNAA 82 mL/min/1.73m2 Normal >60 [facility] Comment on above: Performed By: #### C MP, TSH reflex FT4, CBCAD, MG, VITD, LIPD #### [facility] [address], [place] [id number] Globulin (S) [Mass/Vol] 2.6 g/dL Normal 1.9-3.7 [facility] Comment on above: Performed By: #### C MP, TSH reflex FT4, CBCAD, MG, VITD, LIPD #### [facility] [address], [place] [id number] Glucose [Mass/Vol] 92 mg/dL Normal 65-99 [facility] [place] [employer] Comment on above: Result Comment: For FASTING Glucose --- ADA reference ranges: Normal 65-99 mg/dl Prediabetes 100-125 Diabetes >/= 126 Performed By: #### C MP, TSH reflex FT4, CBCAD, MG, VITD, LIPD #### [facility] [address], [place] [id number] Potassium [Moles/Vol] 4.8 mmol/L Normal 3.5-5.5 [facility] Specialist Comment on above: Performed By: #### C MP, TSH reflex FT4, CBCAD, MG, VITD, LIPD #### [facility] [address], [place] [id number] Protein [Mass/Vol] 6.8 g/dL Normal 6.1-8.1 [facility] [place] [employer] Comment on above: Performed By: #### C MP, TSH reflex FT4, CBCAD, MG, VITD, LIPD #### [facility] [address], [place] [id number] Sodium [Moles/Vol] 139 mmol/L Normal 135-146 [facility] [place] [employer] Comment on above: Performed By: #### C MP, TSH reflex FT4, CBCAD, MG, VITD, LIPD #### [facility] [address], [place] [id number] Urea nitrogen [Mass/Vol] 14 mg/dL Normal 7-25 [facility] Specialist Comment on above: Performed By: #### C MP, TSH reflex FT4, CBCAD, MG, VITD, LIPD #### [facility] [address], [place] [id number] Lipid Panelon 10-16-2021 Cholesterol [Mass/Vol] 158 mg/dL Normal 125-200 No [facility] Comment on above: Result Comment: Low risk < 200mg/dL Borderline risk 201-239 mg/dl High risk > or equal to 240 Performed By: #### C MP, TSH reflex FT4, CBCAD, MG, VITD, LIPD #### [facility] [address], [place] [id number] Cholesterol in HDL [Mass/Vol] 65 mg/dL Normal >40 [facility] Specialist Comment on above: Result Comment: High Cardiovascular Risk HDL <40 mg/dL Low Cardiovascular Risk HDL > or equal to 60 mg/dl Performed By: #### C MP, TSH reflex FT4, CBCAD, MG, VITD, LIPD #### [facility] [address], [place] [id number] Cholesterol in LDL [Mass/Vol] 81 mg/dL Normal [facility] Comment on above: Result Comment: LDL ATP III CLASSIFICATION LDL less than 100 mg/dl Optimal LDL 100-129 mg/dl Near or above optimal LDL 130-159 Borderline high LDL 160-189 High LDL greater than 189 mg/dl Very High Performed By: #### C MP, TSH reflex FT4, CBCAD, MG, VITD, LIPD #### [facility] [address], [place] [id number] Cholesterol in VLDL [Mass/Vol] 12 mg/dL Normal [facility] Specialist Comment on above: Performed By: #### C MP, TSH reflex FT4, CBCAD, MG, VITD, LIPD #### [facility] [address], [place] [id number] Cholesterol.total/Kimberly sterol in HDL [Mass ratio] 2 {ratio} Normal [facility] Specialist Comment on above: Performed By: #### C MP, TSH reflex FT4, CBCAD, MG, VITD, LIPD #### [facility] [address], [place] [id number] Triglyceride [Mass/Vol] 60 mg/dL Normal 30-150 [facility] Comment on above: Result Comment: TRIG ATPIII CLASSIFICATIONS TRIG less than 150 mg/dl Normal TRIG 150-199 mg/dl Borderline High TRIG 200-500 mg/dl High TRIG greather than 500 mg/dl Very High Performed By: #### C MP, TSH reflex FT4, CBCAD, MG, VITD, LIPD #### [facility] [address], [place] [id number] Magnesiumon 10-16-2021 Magnesium [Mass/Vol] 1.9 mg/dL Normal 1.5-2.3 [facility] Comment on above: Performed By: #### C MP, TSH reflex FT4, CBCAD, MG, VITD, LIPD #### [facility] [address], [place] [id number] TSH w/ Reflex to Free T4on 0 10-16-2021 TSH 1.370 uIU/mL Normal 0.400-4.50 0 [facility] Specialist Comment on above: Performed By: #### C MP, TSH reflex FT4, CBCAD, MG, VITD, LIPD #### [facility] [address], [place] [id number] Vitamin D 25-OHon 10-16-2021 VIT D 25 OH 28 ng/ml Low >29 [facility] Specialist Comment on above: Result Comment: Karissa min D Status Deficiency <20 ng/mL Insufficiency 20-29 ng/mL Optimal 30-100 ng/mL Possible Toxicity >=150 ng/mL Performed By: #### C MP, TSH reflex FT4, CBCAD, MG, VITD, LIPD #### [facility] [address], [place] [id number] XR CHEST 2 Von 09-11-2021 XR CHEST [...] by: DEBORAH PERALTA Date: 2021-09-11 11:13 Normal [facility] PROF CHEM 8 (BAS METB)on Anion gap [Moles/Vol] 19.0 mmol/L Normal [facility] Comment on above: Performed By: #### B MP #### [facility] [address] [address] [address] Vadim Koehler Calcium [Mass/Vol] 9.0 mg/dL Normal 8.4-10.2 [facility] Comment on above: Performed By: #### B MP #### [facility] [address] [address] [address] Vadim Koehler Chloride [Moles/Vol] 97 mmol/L Critically low 98-107 [facility] Comment on above: Performed By: #### B MP #### [facility] [address] [address] [address] Vadim Koehler CO2 [Moles/Vol] 20.0 mmol/L Critically low 22.0-30.0 [facility] Comment on above: Performed By: #### B MP #### [facility] [address] [address] [address] Vadim Koehler Creatinine [Mass/Vol] 3.03 mg/dL Critically high 0.66-1.25 [facility] Comment on above: Performed By: #### B MP #### [facility] [address] [address] [address] Vadim Koehler EGFR-AF SCOTTISH 25 mL/min/1.73m2 Critically low >=60 [facility] Comment on above: Performed By: #### B MP #### [facility] [address] [address] [address] Vadim Koehler EGFR-NON AF SCOTTISH 21 mL/min/1.73m2 Critically low >=60 [facility] Comment on above: Performed By: #### B MP #### [facility] [address] [address] [address] Vadim Koehler Glucose [Mass/Vol] 120 mg/dL Critically high 74-106 [facility] Comment on above: Performed By: #### B MP #### [facility] [address] [address] [address] Vadim Koehler Potassium [Moles/Vol] 4.0 mmol/L Normal 3.4-5.0 [facility] Comment on above: Performed By: #### B MP #### [facility] [address] [address] [address] Vadim Koehler Sodium [Moles/Vol] 132 mmol/L Critically low 137-145 [facility] Comment on above: Performed By: #### B MP #### [facility] [address] [address] [address] Vadim Koehler Urea nitrogen [Mass/Vol] 47.0 mg/dL Critically high 9.0-20.0 [facility] Comment on above: Performed By: #### B MP #### [facility] [address] [address] [address] Vadim Koehler Urea nitrogen/Creatinine [Mass ratio] 15.5 mg/mg Normal [facility] Comment on above: Performed By: #### B MP #### [facility] [address] [address] [address] Vadim Koehler Vital Signs Date Time Vital Sign Value Performing Clinician Facility 02-10-2025 10:12-0400 Diastolic blood pressure 69 mm[Hg] [facility] Work Phone: [facility] 02-10-2025 10:12-0400 Heart rate 75 /min [facility] Work Phone: [facility] 02-10-2025 10:12-0400 Respiratory rate 18 /min [facility] Work Phone: [facility] 02-10-2025 10:12-0400 SaO2% (BldA) [Mass fraction] 99 % [facility] Work Phone: [facility] 02-10-2025 10:12-0400 Systolic blood pressure 145 mm[Hg] [facility] Work Phone: [facility] 01-20-2025 09:30-0400 Body height 176.5 cm Itzel Singh APRN.[employer]HEAD OPER[employer] Work Phone: [facility] 01-20-2025 09:30-0400 Body mass index (BMI) [Ratio] 25.36 kg/m2 Itzel Singh APRN.CATHEAD OPERATOR Work Phone: [facility] 01-20-2025 09:30-0400 Body temperature 97.39 [degF] Itzel Singh APRN.CATHEAD OPERATOR Work Phone: [facility] 01-20-2025 09:30-0400 Body weight 79 kg Itzel Singh APRN.CATHEAD OPERATOR Work Phone: [facility] 01-20-2025 09:30-0400 Diastolic blood pressure 78 mm[Hg] Itzel Singh APRN.CATHEAD OPERATOR Work Phone: [facility] 01-20-2025 09:30-0400 Heart rate 73 /min Itzel Singh APRN.CATHEAD OPERATOR Work Phone: [facility] 01-20-2025 09:30-0400 Respiratory rate 16 /min Itzel Singh APRN.CATHEAD OPERATOR Work Phone: [facility] 01-20-2025 09:30-0400 SaO2% (BldA) [Mass fraction] 99 % Itzel Singh APRN.CATHEAD OPERATOR Work Phone: [facility] 01-20-2025 09:30-0400 Systolic blood pressure 159 mm[Hg] Itzel Singh APRN.CATHEAD OPERATOR Work Phone: [facility] 12-30-2024 09:45-0400 Body temperature 97.59 [degF] [facility] Work Phone: [facility] 12-30-2024 09:45-0400 Diastolic blood pressure 63 mm[Hg] [facility] Work Phone: [facility] 12-30-2024 09:45-0400 Heart rate 97 /min [facility] Work Phone: [facility] 12-30-2024 09:45-0400 Respiratory rate 18 /min [facility] Work Phone: [facility] 12-30-2024 09:45-0400 SaO2% (BldA) [Mass fraction] 100 % [facility] Work Phone: [facility] 12-30-2024 09:45-0400 Systolic blood pressure 111 mm[Hg] [facility] Work Phone: [facility] 12-09-2024 08:49-0400 Body height 176.5 cm Roselyn Leonard MD Work Phone: [facility] 12-09-2024 08:49-0400 Body mass index (BMI) [Ratio] 25.3 kg/m2 Roselyn Leonard MD Work Phone: [facility] 12-09-2024 08:49-0400 Body temperature 97.2 [degF] Roselyn Leonard MD Work Phone: [facility] 12-09-2024 08:49-0400 Body weight 78.8 kg Roselyn Leonadr MD Work Phone: [facility] 12-09-2024 08:49-0400 Diastolic blood pressure 66 mm[Hg] Roselyn Leonard MD Work Phone: [facility] 12-09-2024 08:49-0400 Heart rate 92 /min Roselyn Leonard MD Work Phone: [facility] 12-09-2024 08:49-0400 Respiratory rate 16 /min Roselyn Leonard MD Work Phone: [facility] 12-09-2024 08:49-0400 SaO2% (BldA) [Mass fraction] 100 % Roselyn Leonard MD Work Phone: [facility] 12-09-2024 08:49-0400 Systolic blood pressure 118 mm[Hg] Roselyn Leonard MD Work Phone: [facility] 11-23-2024 10:44-0400 Body height 176.5 cm Rene Cannon MD Work Phone: [facility] 11-23-2024 10:44-0400 Body mass index (BMI) [Ratio] 24.64 kg/m2 Rene Cannon MD Work Phone: [facility] 11-23-2024 10:44-0400 Body weight 76.77 kg Rene Cannon MD Work Phone: [facility] 11-23-2024 10:44-0400 Diastolic blood pressure 74 mm[Hg] Rene Cannon MD Work Phone: [facility] 11-23-2024 10:44-0400 Heart rate 76 /min eRne Cannon MD Work Phone: [facility] 11-23-2024 10:44-0400 SaO2% (BldA) [Mass fraction] 99 % Rene Cannon MD Work Phone: [facility] 11-23-2024 10:44-0400 Systolic blood pressure 120 mm[Hg] Rene Cannon MD Work Phone: [facility] 11-17-2024 08:47-0400 Body height 176.5 cm Roselyn Leonard MD Work Phone: [facility] 11-17-2024 08:47-0400 Body mass index (BMI) [Ratio] 25.3 kg/m2 Roselyn Leonard MD Work Phone: [facility] 11-17-2024 08:47-0400 Body temperature 97 [degF] Roselyn Leonard MD Work Phone: [facility] 11-17-2024 08:47-0400 Body weight 78.8 kg Roselyn Leonard MD Work Phone: [facility] 11-17-2024 08:47-0400 Diastolic blood pressure 79 mm[Hg] Roselyn Leonard MD Work Phone: [facility] 11-17-2024 08:47-0400 Heart rate 108 /min Roselyn Leonard MD Work Phone: [facility] 11-17-2024 08:47-0400 Respiratory rate 16 /min Roselyn Leonard MD Work Phone: [facility] 11-17-2024 08:47-0400 SaO2% (BldA) [Mass fraction] 100 % Roselyn Leonard MD Work Phone: [facility] 11-17-2024 08:47-0400 Systolic blood pressure 162 mm[Hg] Roselyn Leonard MD Work Phone: [facility] 11-05-2024 08:40-0400 Body temperature 98.1 [degF] [facility] Work Phone: [facility] 11-05-2024 08:40-0400 Diastolic blood pressure 67 mm[Hg] [facility] Work Phone: [facility] 11-05-2024 08:40-0400 Heart rate 87 /min [facility] Work Phone: [facility] 11-05-2024 08:40-0400 Respiratory rate 18 /min [facility] Work Phone: [facility] 11-05-2024 08:40-0400 SaO2% (BldA) [Mass fraction] 100 % [facility] Work Phone: [facility] 11-05-2024 08:40-0400 Systolic blood pressure 147 mm[Hg] [facility] Work Phone: [facility] 10-28-2024 16:16-0500 Diastolic blood pressure 59 mm[Hg] Rene Cannon MD Work Phone: [facility] 10-28-2024 16:16-0500 Heart rate 80 /min Rene Cannon MD Work Phone: [facility] 10-28-2024 16:16-0500 Respiratory rate 18 /min Rene Cannon MD Work Phone: [facility] 10-28-2024 16:16-0500 SaO2% (BldA) [Mass fraction] 100 % Rene Cannon MD Work Phone: [facility] 10-28-2024 16:16-0500 Systolic blood pressure 132 mm[Hg] Rene Cannon MD Work Phone: [facility] 10-28-2024 12:08-0500 Body height 175.26 cm Rene Cannon MD Work Phone: [facility] 10-28-2024 12:08-0500 Body temperature 98.3 [degF] Rene Cannon MD Work Phone: [facility] 10-28-2024 12:08-0500 Body weight 79 kg Rene Cannon MD Work Phone: [facility] 10-19-2024 09:32-0500 Diastolic blood pressure 72 mm[Hg] Rene Cannon MD Work Phone: [facility] 10-19-2024 09:32-0500 Heart rate 82 /min Rene Cannon MD Work Phone: [facility] 10-19-2024 09:32-0500 SaO2% (BldA) [Mass fraction] 97 % Rene Cannon MD Work Phone: [facility] 10-19-2024 09:32-0500 Systolic blood pressure 126 mm[Hg] Rene Cannon MD Work Phone: [facility] 10-15-2024 08:21-0500 Body temperature 97.39 [degF] [facility] Work Phone: [facility] 10-15-2024 08:21-0500 Diastolic blood pressure 75 mm[Hg] [facility] Work Phone: [facility] 10-15-2024 08:21-0500 Heart rate 70 /min [facility] Work Phone: [facility] 10-15-2024 08:21-0500 Respiratory rate 16 /min [facility] Work Phone: [facility] 10-15-2024 08:21-0500 SaO2% (BldA) [Mass fraction] 99 % Lab/[employer] Work Phone: [facility] 10-15-2024 08:21-0500 Systolic blood pressure 126 mm[Hg] [facility] Work Phone: [facility] 09-24-2024 08:11-0500 Body temperature 98.1 [degF] [facility] Work Phone: [facility] 09-24-2024 08:11-0500 Diastolic blood pressure 72 mm[Hg] [facility] Work Phone: [facility] 09-24-2024 08:11-0500 Heart rate 78 /min Lab/[employer] Work Phone: [facility] 09-24-2024 08:11-0500 Respiratory rate 18 /min Lab/[employer] Work Phone: [facility] 09-24-2024 08:11-0500 SaO2% (BldA) [Mass fraction] 98 % [facility] Work Phone: [facility] 09-24-2024 08:11-0500 Systolic blood pressure 164 mm[Hg] [facility] Work Phone: [facility] 09-03-2024 08:16-0500 Body temperature 97.3 [degF] [facility] Work Phone: [facility] 09-03-2024 08:16-0500 Diastolic blood pressure 71 mm[Hg] [facility] Work Phone: [facility] 09-03-2024 08:16-0500 Heart rate 68 /min [facility] Work Phone: [facility] 09-03-2024 08:16-0500 Respiratory rate 18 /min [facility] Work Phone: [facility] 09-03-2024 08:16-0500 SaO2% (BldA) [Mass fraction] 99 % [facility] Work Phone: [facility] 09-03-2024 08:16-0500 Systolic blood pressure 127 mm[Hg] [facility] Work Phone: [facility] 08-13-2024 13:22-0500 Body mass index (BMI) [Ratio] 25.55 kg/m2 Roselyn Leonard MD Work Phone: [facility] 08-13-2024 13:22-0500 Body temperature 97.7 [degF] Roselyn Leonard MD Work Phone: [facility] 08-13-2024 13:22-0500 Body weight 79.6 kg Roselyn Leonard MD Work Phone: [facility] 08-13-2024 13:22-0500 Diastolic blood pressure 76 mm[Hg] Roselyn Leonard MD Work Phone: [facility] 08-13-2024 13:22-0500 Heart rate 64 /min Roselyn Leonard MD Work Phone: [facility] 08-13-2024 13:22-0500 Respiratory rate 18 /min Roselyn Leonard MD Work Phone: [facility] 08-13-2024 13:22-0500 SaO2% (BldA) [Mass fraction] 99 % Roselyn Leonard MD Work Phone: [facility] 08-13-2024 13:22-0500 Systolic blood pressure 146 mm[Hg] Roselyn Leonard MD Work Phone: [facility] 07-08-2024 08:54-0500 Body mass index (BMI) [Ratio] 25.01 kg/m2 Roselyn Leonard MD Work Phone: [facility] 07-08-2024 08:54-0500 Body temperature 97.11 [degF] Roselyn Leonard MD Work Phone: [facility] 07-08-2024 08:54-0500 Body weight 77.9 kg Roselyn Leonard MD Work Phone: [facility] 07-08-2024 08:54-0500 Diastolic blood pressure 77 mm[Hg] Roselyn Leonard MD Work Phone: [facility] 07-08-2024 08:54-0500 Heart rate 79 /min Roselyn Leonard MD Work Phone: [facility] 07-08-2024 08:54-0500 Respiratory rate 18 /min Roselyn Leonard MD Work Phone: [facility] 07-08-2024 08:54-0500 SaO2% (BldA) [Mass fraction] 100 % Roselyn Leonard MD Work Phone: [facility] 07-08-2024 08:54-0500 Systolic blood pressure 150 mm[Hg] Roselyn Leonard MD Work Phone: [facility] 06-17-2024 09:06-0400 Body temperature 98.01 [degF] [facility] Work Phone: [facility] 06-17-2024 09:06-0400 Diastolic blood pressure 90 mm[Hg] [facility] Work Phone: [facility] 06-17-2024 09:06-0400 Heart rate 77 /min [facility] Work Phone: [facility] 06-17-2024 09:06-0400 Respiratory rate 18 /min [facility] Work Phone: [facility] 06-17-2024 09:06-0400 SaO2% (BldA) [Mass fraction] 99 % [facility] Work Phone: [facility] 06-17-2024 09:06-0400 Systolic blood pressure 159 mm[Hg] [facility] Work Phone: [facility] 06-03-2024 15:08-0400 Body height 176.5 cm Roselyn Leonard MD Work Phone: [facility] 06-03-2024 15:08-0400 Respiratory rate 16 /min Roselyn Leonard MD Work Phone: [facility] 05-20-2024 08:33-0400 Body height 176.5 cm Roselyn Leonard MD Work Phone: [facility] 05-20-2024 08:33-0400 Body mass index (BMI) [Ratio] 24.75 kg/m2 Roselyn Leonard MD Work Phone: [facility] 05-20-2024 08:33-0400 Body temperature 97.3 [degF] Roselyn Leonard MD Work Phone: [facility] 05-20-2024 08:33-0400 Body weight 77.11 kg Roselyn Leonard MD Work Phone: [facility] 05-20-2024 08:33-0400 Diastolic blood pressure 85 mm[Hg] Roselyn Leonard MD Work Phone: [facility] 05-20-2024 08:33-0400 Heart rate 78 /min Roselyn Leonard MD Work Phone: [facility] 05-20-2024 08:33-0400 Respiratory rate 18 /min Roselyn Leonard MD Work Phone: [facility] 05-20-2024 08:33-0400 SaO2% (BldA) [Mass fraction] 100 % Roselyn Leonard MD Work Phone: [facility] 05-20-2024 08:33-0400 Systolic blood pressure 132 mm[Hg] Roselyn Leonard MD Work Phone: [facility] 04-27-2024 09:29-0400 Body height 176.5 cm Rene Cannon MD Work Phone: [facility] 04-27-2024 09:29-0400 Body mass index (BMI) [Ratio] 24.6 kg/m2 Rene Cannon MD Work Phone: [facility] 04-27-2024 09:29-0400 Body weight 76.66 kg Rene Cannon MD Work Phone: [facility] 04-27-2024 09:29-0400 Diastolic blood pressure 86 mm[Hg] Rene Cannon MD Work Phone: [facility] 04-27-2024 09:29-0400 Heart rate 86 /min Rene Cannon MD Work Phone: [facility] 04-27-2024 09:29-0400 SaO2% (BldA) [Mass fraction] 97 % Rene Cannon MD Work Phone: [facility] 04-27-2024 09:29-0400 Systolic blood pressure 148 mm[Hg] Rene Cannon MD Work Phone: [facility] 04-21-2024 08:29-0400 Body temperature 97.9 [degF] [facility] Work Phone: [facility] 04-21-2024 08:29-0400 Diastolic blood pressure 78 mm[Hg] [facility] Work Phone: [facility] 04-21-2024 08:29-0400 Heart rate 63 /min [facility] Work Phone: [facility] 04-21-2024 08:29-0400 Respiratory rate 18 /min [facility] Work Phone: [facility] 04-21-2024 08:29-0400 SaO2% (BldA) [Mass fraction] 99 % [facility] Work Phone: [facility] 04-21-2024 08:29-0400 Systolic blood pressure 164 mm[Hg] [facility] Work Phone: [facility] 03-24-2024 10:59-0400 Body height 176.5 cm Roselyn Leonard MD Work Phone: [facility] 03-24-2024 10:59-0400 Body mass index (BMI) [Ratio] 25.17 kg/m2 Roselyn Leonard MD Work Phone: [facility] 03-24-2024 10:59-0400 Body temperature 97.7 [degF] Roselyn Leonard MD Work Phone: [facility] 03-24-2024 10:59-0400 Body weight 78.4 kg Roselyn Leonard MD Work Phone: [facility] 03-24-2024 10:59-0400 Diastolic blood pressure 71 mm[Hg] Roselyn Leonard MD Work Phone: [facility] 03-24-2024 10:59-0400 Heart rate 100 /min Roselyn Leonard MD Work Phone: [facility] 03-24-2024 10:59-0400 Respiratory rate 16 /min Roselyn Leonard MD Work Phone: [facility] 03-24-2024 10:59-0400 SaO2% (BldA) [Mass fraction] 99 % Roselyn Leonadr MD Work Phone: [facility] 03-24-2024 10:59-0400 Systolic blood pressure 144 mm[Hg] Roselyn Leonard MD Work Phone: [facility] 02-24-2024 09:51-0400 Body height 176.5 cm Dalton Britney PA-C Work Phone: [facility] 02-24-2024 09:51-0400 Body mass index (BMI) [Ratio] 24.46 kg/m2 Dalton Britney PA-C Work Phone: [facility] 02-24-2024 09:51-0400 Body temperature 97.39 [degF] Dalton Britney PA-C Work Phone: [facility] 02-24-2024 09:51-0400 Body weight 76.2 kg Dalton Britney PA-C Work Phone: [facility] 02-24-2024 09:51-0400 Diastolic blood pressure 84 mm[Hg] Dalton Britney PA-C Work Phone: [facility] 02-24-2024 09:51-0400 Heart rate 73 /min Dalton Britney PA-C Work Phone: [facility] 02-24-2024 09:51-0400 Respiratory rate 16 /min Dalton Britney PA-C Work Phone: [facility] 02-24-2024 09:51-0400 SaO2% (BldA) [Mass fraction] 100 % Dalton Britney PA-C Work Phone: [facility] 02-24-2024 09:51-0400 Systolic blood pressure 153 mm[Hg] Dalton Britney PA-C Work Phone: [facility] 01-28-2024 09:26-0400 Body height 176.5 cm Roselyn Leonard MD Work Phone: [facility] 01-28-2024 09:26-0400 Body mass index (BMI) [Ratio] 24.94 kg/m2 Roselyn Leonard MD Work Phone: [facility] 01-28-2024 09:26-0400 Body temperature 97.59 [degF] Roselyn Leonard MD Work Phone: [facility] 01-28-2024 09:26-0400 Body weight 77.7 kg Roselyn Leonard MD Work Phone: [facility] 01-28-2024 09:26-0400 Diastolic blood pressure 80 mm[Hg] Roselyn Leonard MD Work Phone: [facility] 01-28-2024 09:26-0400 Heart rate 58 /min Roselyn Leonard MD Work Phone: [facility] 01-28-2024 09:26-0400 Respiratory rate 16 /min Roselyn Leonard MD Work Phone: [facility] 01-28-2024 09:26-0400 SaO2% (BldA) [Mass fraction] 100 % Roselyn Leonard MD Work Phone: [facility] 01-28-2024 09:26-0400 Systolic blood pressure 154 mm[Hg] Roselyn Leonard MD Work Phone: [facility] 12-31-2023 09:41-0400 Body temperature 98.01 [degF] [facility] Work Phone: [facility] 12-31-2023 09:41-0400 Diastolic blood pressure 61 mm[Hg] [facility] Work Phone: [facility] 12-31-2023 09:41-0400 Heart rate 60 /min [facility] Work Phone: [facility] 12-31-2023 09:41-0400 Respiratory rate 18 /min [facility] Work Phone: [facility] 12-31-2023 09:41-0400 SaO2% (BldA) [Mass fraction] 99 % [facility] Work Phone: [facility] 12-31-2023 09:41-0400 Systolic blood pressure 121 mm[Hg] [facility] [employer] Work Phone: [facility] 12-03-2023 15:19-0400 Body height 176.5 cm Roselyn Leonard MD Work Phone: [facility] 12-03-2023 15:19-0400 Body temperature 97.2 [degF] Roselyn Leonard MD Work Phone: [facility] 12-03-2023 15:19-0400 Body weight 73.9 kg Roselyn Leonard MD Work Phone: [facility] 12-03-2023 15:19-0400 Diastolic blood pressure 72 mm[Hg] Roselyn Leonard MD Work Phone: [facility] 12-03-2023 15:19-0400 Heart rate 86 /min Roselyn Leonard MD Work Phone: [facility] 12-03-2023 15:19-0400 Respiratory rate 16 /min Roselyn Leonard MD Work Phone: [facility] 12-03-2023 15:19-0400 SaO2% (BldA) [Mass fraction] 99 % Roselyn Leonard MD Work Phone: [facility] 12-03-2023 15:19-0400 Systolic blood pressure 159 mm[Hg] Roselyn Leonard MD Work Phone: [facility] 11-17-2023 10:21-0400 Body height 176.5 cm Cleveland Alberts MD Work Phone: [facility] 11-17-2023 10:21-0400 Body temperature 98.01 [degF] Cleveland Alberts MD Work Phone: [facility] 11-17-2023 10:21-0400 Body weight 67.13 kg Cleveland Alberts MD Work Phone: [facility] 11-17-2023 10:21-0400 Diastolic blood pressure 63 mm[Hg] Cleveland Alberts MD Work Phone: [facility] 11-17-2023 10:21-0400 Heart rate 72 /min Cleveland Alberts MD Work Phone: [facility] 11-17-2023 10:21-0400 SaO2% (BldA) [Mass fraction] 100 % Cleveland Alberts MD Work Phone: [facility] 11-17-2023 10:21-0400 Systolic blood pressure 125 mm[Hg] Cleveland Alberts MD Work Phone: [facility] 10-13-2023 10:59-0500 Body height 176.5 cm Pacc 2 Work Phone: [facility] 10-13-2023 10:59-0500 Body temperature 98.49 [degF] Pacc 2 Work Phone: [facility] 10-13-2023 10:59-0500 Body weight 75.8 kg Pacc 2 Work Phone: [facility] 10-13-2023 10:59-0500 Diastolic blood pressure 57 mm[Hg] Pacc 2 Work Phone: [facility] 10-13-2023 10:59-0500 Heart rate 77 /min Pacc 2 Work Phone: [facility] 10-13-2023 10:59-0500 SaO2% (BldA) [Mass fraction] 100 % Pacc [employer] Work Phone: [facility] 10-13-2023 10:59-0500 Systolic blood pressure 103 mm[Hg] Pacc 2 Work Phone: [facility] 10-10-2023 11:33-0500 Body temperature 98.1 [degF] MD Rene Cannon Work Phone: [facility] 10-10-2023 11:33-0500 Diastolic blood pressure 72 mm[Hg] MD Rene Cannon Work Phone: [facility] 10-10-2023 11:33-0500 Heart rate 65 /min MD Rene Cannon Work Phone: [facility] 10-10-2023 11:33-0500 Respiratory rate 20 /min MD Rene Cannon Work Phone: [facility] 10-10-2023 11:33-0500 SaO2% (BldA) [Mass fraction] 99 % MD Rene Cannon Work Phone: [facility] 10-10-2023 11:33-0500 Systolic blood pressure 128 mm[Hg] MD Rene Cannon Work Phone: [facility] 10-10-2023 05:28-0500 Body weight 76.8 kg MD Rene Cannon Work Phone: [facility] 10-09-2023 12:16-0500 Body height 175.26 cm MD Rene Cannon Work Phone: [facility] 10-06-2023 22:22-0500 Diastolic blood pressure 54 mm[Hg] MD Rene Cannon Work Phone: [facility] 10-06-2023 22:22-0500 Heart rate 65 /min MD Rene Cannon Work Phone: [facility] 10-06-2023 22:22-0500 Respiratory rate 18 /min MD Rene Cannon Work Phone: [facility] 10-06-2023 22:22-0500 SaO2% (BldA) [Mass fraction] 98 % MD Rene Cannon Work Phone: [facility] 10-06-2023 22:22-0500 Systolic blood pressure 96 mm[Hg] MD Rene Cannon Work Phone: [facility] 10-06-2023 13:36-0500 Body height 175.26 cm MD Rene Cannon Work Phone: [facility] 10-06-2023 13:36-0500 Body temperature 98.2 [degF] MD Rene Cannon Work Phone: [facility] 10-06-2023 13:36-0500 Body weight 72 kg MD Rene Cannon Work Phone: [facility] 10-02-2023 14:14-0500 Body height 176.5 cm Cleveland Alberts MD Work Phone: [facility] 10-02-2023 14:14-0500 Body temperature 97.7 [degF] Cleveland Alberts MD Work Phone: [facility] 10-02-2023 14:14-0500 Body weight 68.04 kg Cleveland Alberts MD Work Phone: [facility] 10-02-2023 14:14-0500 Diastolic blood pressure 72 mm[Hg] Cleveland Alberts MD Work Phone: [facility] 10-02-2023 14:14-0500 Heart rate 76 /min Cleveland Alberts MD Work Phone: [facility] 10-02-2023 14:14-0500 Respiratory rate 16 /min Cleveland Alberts MD Work Phone: [facility] 10-02-2023 14:14-0500 Systolic blood pressure 127 mm[Hg] Cleveland Alberts MD Work Phone: [facility] 08-07-2023 13:50-0500 Body weight 63.5 kg Cleveland Alberts MD Work Phone: [facility] 08-07-2023 13:50-0500 Diastolic blood pressure 63 mm[Hg] Cleveland Alberts MD Work Phone: [facility] 08-07-2023 13:50-0500 Heart rate 139 /min Cleveland Alberts MD Work Phone: [facility] 08-07-2023 13:50-0500 Systolic blood pressure 94 mm[Hg] Cleveland Alberts MD Work Phone: [facility] 07-26-2023 15:20-0500 Body temperature 97.7 [degF] [...] 56 mm[Hg] MD Rene Cannon Work Phone: [facility] [...] Body height 176.53 cm Chantal Castellanos Other [employer] Other 02-22-2023 11:30-0400 Body mass index (BMI) [Ratio] 25.79 kg/m2 Chantal Castellanos Other [employer] Other 02-22-2023 11:30-0400 Body temperature 98.9 [degF] Chantal Castellanos Other [employer] Other 02-22-2023 11:30-0400 Body weight 80.38 kg Chantal Castellanos Other [employer] Other 02-22-2023 11:30-0400 Respiratory rate 18 /min Chantal Castellanos Other [employer] Other 02-22-2023 11:30-0400 SaO2% (BldA) [Mass fraction] 96 % Chantal Castellanos Other [employer] Other 02-06-2023 11:36-0400 Body height 176.53 cm Rene Bynum Davis Work Phone: [facility] DO Work Phone: 02-06-2023 11:36-0400 Body mass index (BMI) [Ratio] 25.62 kg/m2 Rene Hendersonsb Work Phone: [facility] DO Work Phone: 02-06-2023 11:36-0400 Body surface area Derived from formula 1.97 m2 Rene Hendersonsb Work Phone: [facility] DO Work Phone: 02-06-2023 11:36-0400 Body weight 79.83 kg Rene Hendersonsb Work Phone: [facility] DO Work Phone: 02-06-2023 11:36-0400 Diastolic blood pressure 78 mm[Hg] Rene Hendersonsb Work Phone: [facility] DO Work Phone: 02-06-2023 11:36-0400 Heart rate 66 /min eRne Hendersonsb Work Phone: [facility] DO Work Phone: 02-06-2023 11:36-0400 Systolic blood pressure 136 mm[Hg] Rene Hendersonsb Work Phone: [facility] DO Work Phone: 01-17-2023 13:05-0400 Diastolic [...] Rene Cannon Work Phone: [facility] 01-17-2023 07:26-040 Body temperature 98.1 [degF] MD Rene Cannon Work Phone: [facility] 01-17-2023 07:26-0400 Body weight 82 kg MD Rene Cannon Work Phone: [facility] 01-09-2023 09:10-0400 Diastolic blood pressure 92 mm[Hg] Rene Cannon Work Phone: [facility] DO Work Phone: 01-09-2023 09:10-0400 Systolic blood pressure 160 mm[Hg] Rene Cannon Work Phone: [facility] DO Work Phone: 01-09-2023 09:09-0400 Body height 176.53 cm Rene Cannon Work Phone: [facility] DO Work Phone: 01-09-2023 09:09-0400 Body mass index (BMI) [Ratio] 26.49 kg/m2 Rene Cannon Work Phone: [facility] DO Work Phone: 01-09-2023 09:09-0400 Body surface area Derived from formula 1.99 m2 Rene Cannon Work Phone: [facility] DO Work Phone: 01-09-2023 09:09-0400 Body weight 82.56 kg Rene Cannon Work Phone: [facility] DO Work Phone: 01-09-2023 09:09-0400 Diastolic blood pressure 90 mm[Hg] Rene Cannon Work Phone: [facility] DO Work Phone: 01-09-2023 09:09-0400 Heart rate 70 /min Rene Cannon Work Phone: [facility] DO Work Phone: 01-09-2023 09:09-0400 Systolic blood pressure 152 mm[Hg] Rene Cannon Work Phone: [facility] DO Work Phone: 11-21-2021 14:30-0400 Body height 176.53 cm Deborah Magallanes Other [employer] Other 11-21-2021 14:30-0400 Body mass index (BMI) [Ratio] 27.36 kg/m2 Deborah Magallanes Other [employer] Other 11-21-2021 14:30-0400 Body weight 85.28 kg Deborah Magallanes Other [employer] Other 11-21-2021 14:30-0400 Diastolic blood pressure 79 mm[Hg] Deborah Magallanes Other [employer] Other 11-21-2021 14:30-0400 Systolic blood pressure 136 mm[Hg] Deborah Magallanes Other [employer] Other Encounters Encounter Date Encounter Type Care Provider Facility Start: 02-10-2025 End: 02-10-2025 Clinisync Result Encounter Generic External Data Provider [facility] External Department Unsolicited Start: 02-10-2025 End: 02-10-2025 Clinisync Result Encounter Generic External Data Provider [facility] External Department Unsolicited Start: 02-10-2025 End: 02-10-2025 ambulatory [facility] [place] [facility] Work Phone: Hematology/Oncology Comment on above: 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) Start: 02-07-2025 End: 02-10-2025 Telephone encounter [facility]: Nm Pet [facility] Start: 01-20-2025 End: 01-20-2025 Clinisync Result Encounter Generic External Data Provider [facility] External Department Unsolicited Start: 01-20-2025 End: 01-20-2025 Clinisync Result Encounter Generic External Data Provider [facility] External Department Unsolicited Start: 01-20-2025 End: 01-20-2025 Patient encounter procedure Itzel Singh APRN.CNP Work Phone: Hematology/Oncology Start: 01-20-2025 End: 01-20-2025 ambulatory [facility] [facility] Work Phone: Hematology/Oncology Comment on above: 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); Malignant carcinoid tumor of ileum (HCC) Start: 12-30-2024 End: 12-30-2024 Clinisync Result Encounter Generic External Data Provider [facility] External Department Unsolicited Start: 12-30-2024 End: 12-30-2024 Clinisync Result Encounter Generic External Data Provider [facility] External Department Unsolicited Start: 12-30-2024 End: 12-30-2024 ambulatory [facility] [facility] Work Phone: Hematology/Oncology Comment on above: 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) Start: 12-20-2024 End: 12-20-2024 Clinisync Result Encounter Generic External Data Provider [facility] External Department Unsolicited Start: 12-20-2024 End: 12-20-2024 Clinisync Result Encounter Generic External Data Provider [facility] External Department Unsolicited Start: 12-20-2024 End: 12-20-2024 ambulatory ROSELYN LEONARD Facility:[facility] Start: 12-15-2024 End: 12-15-2024 ambulatory [facility]ENE DIANA [facility] Facility:[facility] Start: 12-13-2024 End: 12-15-2024 Orders Only Ericka Mistry [facility] Work Phone: [facility] Comment on above: Iron deficiency anem ia, unspecified iron deficiency anemia type (Primary Dx) IV iron Start: 12-09-2024 End: 12-09-2024 Clinisync Result Encounter Generic External Data Provider [facility] External Department Unsolicited Start: 12-09-2024 End: 12-09-2024 Clinisync Result Encounter Generic External Data Provider [facility] External Department Unsolicited Start: 12-09-2024 End: 12-09-2024 Office outpatient visit 40 minutes Roselyn Leonard MD Work Phone: Hematology/Oncology Comment on above: 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); 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); Lung mass; Bone lesion; Iron deficiency anemia due to chronic blood loss Start: 12-09-2024 End: 12-10-2024 ambulatory [facility] [facility] Work Phone: Hematology/Oncology Comment on above: 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) Start: 12-08-2024 End: 12-08-2024 Clinisync Result Encounter Generic External Data Provider [facility] External Department Unsolicited Start: 12-08-2024 End: 12-08-2024 Clinisync Result Encounter Generic External Data Provider [facility] External Department Unsolicited Start: 12-08-2024 End: 12-08-2024 ambulatory ROSELYN LEONARD Facility:[facility] Start: 12-08-2024 End: 12-08-2024 Subsequent hospital visit by physician [facility] Work Phone: Molecular Imaging Comment on above: 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] Start: 11-23-2024 End: 11-23-2024 Bamboo flowsheet Rene Cannon MD Work Phone: [facility] Start: 11-23-2024 End: 11-23-2024 Bamboo flowsheet Rene Cannon MD Work Phone: [facility] Start: 11-23-2024 End: 11-23-2024 ambulatory RENE CANNON Not Available Start: 11-23-2024 End: 11-23-2024 Patient encounter procedure Rene Cannon MD Work Phone: [facility] Comment on above: Welcome to Medicare preventive visit (Primary Dx); Advance directive in chart; Encounter for screening for other disorder; Screening for alcohol problem; Benign essential hypertension (CMS/HCC); Hypertensive ventricular hypertrophy without heart failure (CMS/HCC); Hypertensive nephropathy (CMS/HCC); Stage 3a chronic kidney disease (HCC) (CMS/HCC); Primary malignant neuroendocrine tumor of pancreas (CMS/HCC); 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) Start: 11-09-2024 End: 11-09-2024 ambulatory RENE CANNON Not Available Start: 11-05-2024 End: 11-05-2024 ambulatory [facility] [place] [facility] Work Phone: Hematology/Oncology Comment on above: 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) Start: 11-03-2024 End: 11-08-2024 Telephone encounter Roselyn Leonard MD Work Phone: [address] [place] [address] Comment on above: Hospital Follow Up Start: 11-01-2024 End: 11-01-2024 Telephone encounter Roselyn Leonard MD Work Phone: [facility] Start: 10-31-2024 End: 11-03-2024 Evaluation and management of inpatient RENE CANNON Facility:[facility] Start: 10-28-2024 End: 10-28-2024 Emergency department patient visit Rene Cannon MD Work Phone: [facility] Work Phone: Start: 10-25-2024 End: 11-12-2024 Telephone encounter Rosaline Jon [facility] Work Phone: Hematology/Oncology Comment on above: Medication Follow-up (PET scan question); Patient Question Start: 10-19-2024 End: 10-19-2024 Bamboo flowsgrant Cannon MD Work Phone: [facility] Start: 10-19-2024 End: 10-19-2024 Bamboo flowsheet Rene Cannon MD Work Phone: [facility] Start: 10-19-2024 End: 10-19-2024 Office outpatient visit 25 minutes Rene Cannon MD Work Phone: [facility] Comment on above: Benign essential hyp ertension (CMS/HCC) (Primary Dx); Hypertensive nephropathy (CMS/HCC); Stage 3a chronic kidney disease (HCC) (CMS/HCC); Microalbuminuria; Mixed hyperlipidemia (CMS/HCC); Benign prostatic hyperplasia with weak urinary stream Start: 10-19-2024 End: 10-19-2024 ambulatory RENE CANNON Not Available Start: 10-15-2024 End: 10-15-2024 Clinisync Result Encounter Generic External Data Provider [facility] External Department Unsolicited Start: 10-15-2024 End: 10-15-2024 Clinisync Result Encounter Generic External Data Provider [facility] External Department Unsolicited Start: 10-15-2024 End: 10-15-2024 ambulatory [facility] [facility] Work Phone: Hematology/Oncology Comment on above: 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) Refill Request Start: 09-24-2024 End: 09-24-2024 Clinisync Result Encounter Generic External Data Provider [facility] External Department Unsolicited Start: 09-24-2024 End: 09-24-2024 Clinisync Result Encounter Generic External Data Provider [facility] External Department Unsolicited Start: 09-24-2024 End: 09-24-2024 ambulatory [facility] Work Phone: Hematology/Oncology Comment on above: 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) Start: 09-22-2024 End: 10-15-2024 Telephone encounter Rosaline Jon [facility] Work Phone: [facility] Comment on above: Medication Authoriza tion (Sandostatin LAR 20mg Pharmacy prior auth pending) Start: 09-21-2024 End: 09-21-2024 Refill Aide Almeida [facility] Work Phone: [facility] Comment on above: Erroneous encounter- disregard Start: 09-17-2024 End: 09-20-2024 Refill Rosaline Jon [facility] Work Phone: [facility] Comment on above: Refill Request (Sand ostatin 20mg LAR must be whitebagged) Start: 09-03-2024 End: 09-03-2024 Clinisync Result Encounter Generic External Data Provider [facility] External Department Unsolicited Start: 09-03-2024 End: 09-03-2024 Clinisync Result Encounter Generic External Data Provider [facility] External Department Unsolicited Start: 09-03-2024 End: 09-03-2024 ambulatory [facility] [facility] Work Phone: Hematology/Oncology Comment on above: 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) Start: 08-13-2024 End: 08-13-2024 Clinisync Result Encounter Generic External Data Provider [facility] External Department Unsolicited Start: 08-13-2024 End: 08-13-2024 Clinisync Result Encounter Generic External Data Provider [facility] External Department Unsolicited Start: 08-13-2024 End: 08-13-2024 Office outpatient visit 40 minutes Roselyn Leonard MD Work Phone: Hematology/Oncology Comment on above: 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); 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); Lung mass Start: 08-13-2024 End: 08-13-2024 ambulatory [facility] [facility] Work Phone: Hematology/Oncology Comment on above: 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) Start: 08-11-2024 End: 08-11-2024 Telephone encounter Jessy Butcher RN Work Phone: Hematology/Oncology Comment on above: Care Coordination (S can Results) Start: 08-03-2024 End: 08-03-2024 [facility] Start: 08-03-2024 End: 08-03-2024 ambulatory [facility] Facility:[facility] Start: 08-03-2024 End: 08-03-2024 Subsequent hospital visit by physician [facility] Work Phone: Molecular Imaging Comment on above: 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) [C7B.8] Start: 07-08-2024 End: 07-08-2024 Clinisync Result Encounter Generic External Data Provider [facility] External Department Unsolicited Start: 07-08-2024 End: 07-08-2024 Clinisync Result Encounter Generic External Data Provider [facility] External Department Unsolicited Start: 07-08-2024 End: 07-12-2024 Telephone encounter Roselyn Leonard MD Work Phone: [facility] Comment on above: Nm Pet Request Start: 07-08-2024 End: 07-08-2024 Office outpatient visit 25 minutes Roselyn Leonard MD Work Phone: Hematology/Oncology Comment on above: 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); Lung mass Start: 07-08-2024 End: 07-08-2024 [facility] Start: 06-17-2024 End: 06-17-2024 ambulatory [facility] Work Phone: Hematology/Oncology Comment on above: 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) Start: 06-03-2024 End: 06-03-2024 [facility] Facility:[facility] Start: 06-03-2024 End: 06-03-2024 Office outpatient visit 25 minutes Roselyn Leonard MD Work Phone: Hematology/Oncology Comment on above: 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); Lung mass; Soft tissue injury Start: 06-03-2024 End: 06-03-2024 Clinisync Result Encounter Generic External Data Provider [facility] External Department Unsolicited Start: 06-03-2024 End: 06-03-2024 Clinisync Result Encounter Generic External Data Provider [facility] External Department Unsolicited Start: 06-03-2024 End: 06-03-2024 Telephone encounter Roselyn Leonard MD Work Phone: [facility] Comment on above: Results Start: 06-03-2024 End: 06-03-2024 ambulatory [facility] Facility:[facility] Start: 06-03-2024 End: 06-03-2024 Subsequent hospital visit by physician Arrival Time Radiology Work Phone: Radiology [facility] Comment on above: 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] Start: 05-25-2024 End: 05-25-2024 Refill Rene Cannon MD Work Phone: [facility] Comment on above: Benign essential hyp ertension (CMS/HCC) Start: 05-20-2024 End: 05-20-2024 ambulatory [facility] [place] [facility] Work Phone: Hematology/Oncology Comment on above: 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) Start: 05-20-2024 End: 05-20-2024 Office outpatient visit 40 minutes Roselyn Leonard MD Work Phone: Hematology/Oncology Comment on above: 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); 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); Lung mass; Bone lesion Start: 05-13-2024 End: 05-13-2024 Clinisync Result Encounter Generic External Data Provider [facility] External Department Unsolicited Start: 05-13-2024 End: 05-13-2024 Clinisync Result Encounter Generic External Data Provider [facility] External Department Unsolicited Start: 05-13-2024 End: 05-13-2024 ambulatory RENE CANONN Facility:[facility] Start: 05-13-2024 End: 05-13-2024 Subsequent hospital visit by physician Arrival Time Radiology Work Phone: Radiology [facility] Comment on above: 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] Start: 04-27-2024 End: 04-27-2024 Bamboo flowsheet Rene Cannon MD Work Phone: [facility] Start: 04-27-2024 End: 04-27-2024 Bamboo flowsheet Rene Cannon MD Work Phone: [facility] Start: 04-27-2024 End: 04-27-2024 Office outpatient visit 25 minutes Rene Cannon MD Work Phone: [facility] Comment on above: 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); Benign essential hypertension (CMS/HCC); Hypertensive nephropathy (CMS/HCC); Stage 2 chronic kidney disease; Microalbuminuria Start: 04-27-2024 End: 04-27-2024 ambulatory RENE CANNON Not Available Start: 04-21-2024 End: 04-21-2024 Clinisync Result Encounter Generic External Data Provider [facility] External Department Unsolicited Start: 04-21-2024 End: 04-21-2024 Clinisync Result Encounter Generic External Data Provider [facility] External Department Unsolicited Start: 04-21-2024 End: 04-21-2024 ambulatory [facility] [facility] Work Phone: Hematology/Oncology Comment on above: 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) Start: 03-24-2024 End: 03-24-2024 Office outpatient visit 25 minutes Roselyn Leonard MD Work Phone: Hematology/Oncology Comment on above: 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); 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); Malignant neoplasm of pancreas, unspecified location of malignancy (HCC); Anemia, unspecified type Start: 03-24-2024 End: 03-24-2024 ambulatory [facility] [place] [facility] Work Phone: Hematology/Oncology Comment on above: 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) Start: 02-24-2024 End: 02-24-2024 Office outpatient visit 15 minutes Dalton Tan PA-C Work Phone: Hematology/Oncology Comment on above: 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) Start: 02-24-2024 End: 02-24-2024 ambulatory [facility] [place] [facility] Work Phone: Hematology/Oncology Comment on above: 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) Start: 02-23-2024 Telephone encounter Roselyn childress MD Work Phone: Hematology/Oncology Comment on above: Lab Orders Start: 02-18-2024 Telephone encounter Jessy gastelum RN Work Phone: Hematology/Oncology Comment on above: Care Coordination (S can Results) Start: 02-18-2024 End: 02-18-2024 ambulatory ROSELYN LEONARD Facility:[facility] Start: 02-18-2024 End: 02-18-2024 Subsequent hospital visit by physician Arrival Time Radiology Work Phone: Radiology [facility] Comment on above: 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] Start: 02-10-2024 Telephone encounter Nia Burnham Hematology/Oncology Comment on above: Orders Start: 01-28-2024 End: 01-28-2024 ambulatory [facility] [place] [facility] Work Phone: Hematology/Oncology Comment on above: 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) Start: 01-28-2024 End: 01-28-2024 Office outpatient visit 25 minutes Roselyn Leonard MD Work Phone: Hematology/Oncology Comment on above: 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) Start: 01-21-2024 Telephone encounter Roselyn childress MD Work Phone: Hematology/Oncology Comment on above: Lab Orders Start: 12-31-2023 End: 12-31-2023 ambulatory [facility] [place] [facility] Work Phone: Hematology/Oncology Comment on above: 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) Start: 12-24-2023 Telephone encounter Nia Burnham Hematology/Oncology Comment on above: Return To Work Lette r Start: 12-12-2023 Telephone encounter Roselyn childress MD Work Phone: Hematology/Oncology Comment on above: Disability Alf Start: 12-03-2023 End: 12-03-2023 ambulatory [facility] [place] [facility] Work Phone: Hematology/Oncology Comment on above: 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) Start: 12-03-2023 End: 12-03-2023 Office outpatient new 60 minutes Roselyn Leonard MD Work Phone: Hematology/Oncology Comment on above: Anemia, unspecified type (Primary Dx) Start: 11-18-2023 Telephone encounter Jessy gastelum RN Work Phone: Hematology/Oncology Comment on above: Care Coordination (N ew Patient) Start: 11-17-2023 Telephone encounter Samer Violetta chang MD Work Phone: General Surgery Start: 11-17-2023 End: 11-17-2023 Patient encounter procedure Samer Violetta Alberts MD Work Phone: General Surgery Comment on above: 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) Start: 10-13-2023 End: 10-13-2023 Preprocedural examination done Pac 2 Work Phone: [facility] Work Phone: Start: 10-08-2023 Non-patient / Non-visit MD Ward Cannon Work Phone: [facility] Infectious Disease Work Phone: Start: 10-06-2023 Non-patient / Non-visit MD Ward Cannon Work Phone: [facility] Work Phone: Start: 10-06-2023 End: 10-10-2023 Evaluation and management of inpatient MD Rene Cannon Work Phone: [facility] [place] [facility] S[facility] Work Phone: Start: 10-06-2023 Telephone encounter Samer Violetta chang MD Work Phone: General Surgery Comment on above: Schedule Surgery; Ca re Coordinator - Other Start: 10-02-2023 End: 10-02-2023 Patient encounter procedure Samer Violetta Alberts MD Work Phone: General Surgery Comment on above: Gastric outlet obstr uction (Primary Dx); Primary malignant neuroendocrine tumor of ileum (HCC); Encounter for attention to gastrostomy (HCC); Severe protein-calorie malnutrition (HCC) Start: 10-01-2023 End: 10-01-2023 Subsequent hospital visit by physician Arrival Time Radiology Work Phone: Radiology Pet CT Comment on above: Gastric outlet obstr uction [K31.1] Start: 08-15-2023 End: 08-15-2023 ambulatory Imad Asaad Other [employer] Other Start: 08-15-2023 Telephone encounter Imad Asaad [employer] Start: 08-13-2023 Telephone encounter Samer Violetta chang MD Work Phone: General Surgery Comment on above: FMLA Paperwork Start: 08-08-2023 Preprocedural examination done Sameradha Alberts MD Work Phone: [facility] Work Phone: Start: 08-07-2023 End: 08-07-2023 Patient encounter procedure Samer Violetta Alberts MD Work Phone: General Surgery Comment on above: Gastric outlet obstr uction (Primary Dx) Start: 08-06-2023 Telephone encounter Samer Violetta chang MD Work Phone: General Surgery Comment on above: Received Outside Med ical Records Start: 08-05-2023 Orders Only Jessie Zamora RN Gener al Surgery Comment on above: Appointment Start: 07-29-2023 Telephone encounter Samer Violetta chang MD Work Phone: General Surgery Comment on above: Appointment Start: 07-24-2023 End: 07-26-2023 Evaluation and management of inpatient MD Rene Cannon Work Phone: [facility] [place] Med Surg Work Phone: Start: 02-22-2023 End: 02-22-2023 ambulatory Chantal Castellanos Other [facility] [employer] Other Start: 02-22-2023 Office outpatient vi sit 15 minutes Chantal Castellanos [facility] Start: 02-06-2023 Office outpatient vi sit 15 minutes Rene Cannon Work Phone: [facility] DO Work Phone: Start: 01-17-2023 ambulatory Arnel Madsen Facilit [id number] Start: 01-17-2023 End: 01-17-2023 Admission to same day surgery center MD Rene Cannon Work Phone: [facility] C[facility]-Fitness Specialist Work Phone: Start: 01-17-2023 End: 01-17-2023 ambulatory MD Rene Cannon Work Phone: [facility] Work Phone: Start: 01-15-2023 End: 01-15-2023 Patient encounter procedure MD Rene Cannon Work Phone: [facility] Abn-Adf[facility] Work Phone: Start: 01-09-2023 ambulatory Arnel Madsen Facilit [id number] Start: 12-19-2022 ambulatory Arnel Madsen Facilit y:[id number] Start: 07-04-2022 ambulatory INOCENCIO [facility] Start: 01-11-2022 End: 01-11-2022 ambulatory Deborah Magallanes Other [employer] Other Start: 01-11-2022 Telephone encounter Deborah Mraxsamara [facility] Gastroenterology Start: 12-19-2021 End: 12-19-2021 ambulatory Debroah Magallanes Other [employer] Other Start: 12-19-2021 Telephone encounter Deborah Florasamara [facility] Gastroenterology Start: 11-21-2021 End: 11-21-2021 ambulatory Deborah Magallanes Other [employer] Other Start: 11-21-2021 Office outpatient ne w 30 minutes Deborah Florasamara [facility] Start: 11-07-2021 End: 11-10-2021 [facility] Start: 11-07-2021 End: 11-09-2021 Subsequent hospital visit by physician [facility] Ekg [facility] EKG Comment on above: Chest pain, unspecif ied type; Syncope, unspecified syncope type Arrived Bruit Start: 10-31-2021 End: 11-01-2021 ambulatory DOUGLAS GUTIERREZ Facility:[facility]1 Start: 09-12-2021 End: 09-13-[address] RENE CANNON Facility:[facility] Start: 09-11-2021 End: 09-12-[address] RENE CANNON Facility:[facility] Start: 09-07-2021 End: 09-07-[address] RENE CANNON Facility:[facility]1 Procedures Date Procedure Procedure Detail Performing Clinician Start: 02-10-2025 [facility] CBC W AUTO DIFF BLD Generic External Data Provider Start: 01-20-2025 [facility] CBC W AUTO DIFF BLD Generic External Data Provider Start: 12-30-2024 [facility] CBC W AUTO DIFF BLD Generic External Data Provider Start: 12-20-2024 [facility] CBC W AUTO DIFF BLD Generic External Data Provider Start: 12-09-2024 [facility] CBC W AUTO DIFF BLD Generic External Data Provider Start: 12-08-2024 NM PET/CT NEUROENDOCRINE WB Generic Exte rnal Data Provider Start: 12-08-[address] attenuation skull base mid-thigh Roselyn Leonard MD Work Phone: Start: 11-01-2024 Colonoscopy Lab/Port [place] Work Phone: Start: 10-31-2024 Antibody screen RENE CANNON Comment on above: Order Comment: Specimen Type: BLOOD SPEC IMENOrdering Facility: [facility] Address: [facility] [place] [address] Performed By: #### T SCR ####GEOVANNA BLOOD BANKCLIA [id number] [address] Start: 10-28-2024 Antibody screen Rene Cannon Comment on above: Result Comment: PERFORMED BY: [facility] [address] [place] [address] PATHOLOGIST AIRPLANE FLIGHT ATTENDANT KAYE NUNEZ M.D. Start: 10-28-2024 CT of thorax with contrast Rene garcia MD Work Phone: Start: 10-28-2024 End: 10-28-2024 Measurement of occult blood in body fluid specimen Rene Cannon MD Work Phone: Start: 10-28-2024 Computed tomography of abdomen and pelvis with contrast Rene Cannon MD Work Phone: Start: 10-15-2024 [facility] CBC W AUTO DIFF BLD Generic External Data Provider Start: 09-24-2024 [facility] CBC W AUTO DIFF BLD Generic External Data Provider Start: 09-03-2024 [facility] CBC W AUTO DIFF BLD Generic External Data Provider Start: 08-13-2024 [facility] CBC W AUTO DIFF BLD Generic External Data Provider Start: 07-08-2024 ALL VASOACTIVE INTESTINAL PEPTIDE Generic External Data Provider Start: 07-08-2024 [facility] CBC W AUTO DIFF BLD Generic External Data Provider Start: 07-08-2024 [facility] CGA SERPL-[facility] Generic External Data Provider Start: 07-08-2024 [facility] COMP METAB 2000 PNL SERPL Generic Ex ternal Data Provider Start: 07-08-2024 [facility] GASTRIN SERPL-[facility]NC Generic External Data Provider Start: 07-08-2024 [facility] SEROTONIN BLD Generic External Data Provider Start: 06-03-2024 [facility] CBC W AUTO DIFF BLD Generic External Data Provider Start: 06-03-2024 End: 06-03-2024 Blood count complete auto&auto difrntl wbc Roselyn Leonard MD Work Phone: Start: 05-13-2024 [facility] CBC W AUTO DIFF BLD Generic External Data Provider Start: 05-13-2024 Ct abdomen & pelvis w/contrast material Roselyn Leonard MD Work Phone: Start: 05-13-2024 Ct thorax w/contrast material Roselyn childress MD Work Phone: Start: 04-27-2024 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 Rene Cannon MD Work Phone: Start: 04-21-2024 [facility] CBC W AUTO DIFF BLD Generic External Data Provider Start: 02-18-2024 Ct abdomen & pelvis w/contrast material Roselyn Leonard MD Work Phone: Start: 10-07-2023 Screening for occult blood in feces MD Rene Cannon Work Phone: Start: 10-06-2023 Aerobic microbial culture MD Rene Cannon Work Phone: Start: 10-06-2023 Bacterial ID (NA Multiplex Assay) MD Rene Cannon Work Phone: Start: 10-06-2023 SARS-CoV-2, Influenza & RSV (PCR) MD Rene Cannon Work Phone: Start: 10-06-2023 Plain chest X-ray MD Rene Cannon Work Phone: Start: 10-01-2023 Ct abdomen & pelvis w/contrast material Jorge Mahoney MD Work Phone: Start: 07-25-2023 Esophagogastroduodenoscopy MD Rene Cannon Work Phone: Start: 07-24-2023 CT of abdomen [...] Total colonoscopy Rene Cannon Work Phone: Start: 07-04-2021 Colonoscopy Generic Provider Start: 03-17-2017 Colonoscopy [facility] Ekg Arthroscopy of knee Rene Cannon Work Phone: Cardiac catheterization Olga Cannon Work Phone: Tonsillectomy Rene luis Work Phone: Plan of Treatment Date Care Activity Detail Author Start: 11-01-2034 Screening for malignant neoplasm of colon [facility] Start: 02-16-2033 Urine microalbumin profile DTaP,Tdap,Td Vaccine (2 - Td or Tdap) [facility] Start: 07-04-2031 Screening for malignant neoplasm of colon [facility] Start: 2030 RSV Vaccine (1 - 1-dose 75+ series) RSV Vaccine (1 - 1-dose 75+ series) [facility] Start: 02-11-2028 Diabetes Screening Diabetes Screening [facility] Start: 01-21-2028 Diabetes Screening Diabetes Screening [facility] Start: 12-31-2027 Diabetes Screening Diabetes Screening [facility] Start: 12-10-2027 Diabetes Screening Diabetes Screening [facility] Start: 11-18-2027 Diabetes Screening Diabetes Screening [facility] Start: 11-06-2027 Diabetes Screening Diabetes Screening [facility] Start: 11-02-2027 Diabetes Screening Diabetes Screening [facility] Start: 10-15-2027 Diabetes Screening Diabetes Screening [facility] Start: 09-24-2027 Diabetes Screening Diabetes Screening [facility] Start: 09-03-2027 Diabetes Screening [facility] Start: 08-13-2027 Diabetes Screening Diabetes Screening [facility] Start: 07-08-2027 Diabetes Screening Diabetes Screening [facility] Start: 06-03-2027 Diabetes Screening Diabetes Screening [facility] Start: 05-13-2027 Diabetes Screening Diabetes Screening [facility] Start: 04-21-2027 Diabetes Screening Diabetes Screening [facility] Start: 03-24-2027 Diabetes Screening Diabetes Screening [facility] Start: 03-17-2027 Screening for malignant neoplasm of colon [facility] Start: 02-23-2027 Diabetes Screening Diabetes Screening [facility] Start: 01-27-2027 Diabetes Screening Diabetes Screening [facility] Start: 12-02-2026 Diabetes Screening Diabetes Screening [facility] Start: 11-06-2026 Diabetes Screening Diabetes Screening [facility] Start: 10-16-2026 Lipid panel Lipid screen [facility] Start: 09-05-2026 Diabetes Screening Diabetes Screening [facility] Start: 08-14-2026 Diabetes Screening Diabetes Screening [facility] Start: 08-07-2026 Diabetes Screening Diabetes Screening [facility] Start: 02-10-2026 Creatinine measurement Serum Creatinine [facility] Start: 01-20-2026 Creatinine measurement Serum Creatinine [facility] Start: 12-30-2025 Creatinine measurement Serum Creatinine [facility] Start: 12-09-2025 BP Controlled (<130/80) BP Controlled (<130/80) [facility] Start: 12-09-2025 Complete blood count Hemoglobin/Hematocrit [facility] Start: 12-09-2025 Creatinine measurement Serum Creatinine [facility] Start: 11-17-2025 Creatinine measurement Serum Creatinine [facility] Start: 11-05-2025 Complete blood count Hemoglobin/Hematocrit [facility] Start: 11-05-2025 Creatinine measurement Serum Creatinine [facility] Start: 11-01-2025 Creatinine measurement Serum Creatinine [facility] Start: 11-01-2025 Screening for malignant neoplasm of colon [facility] Start: 10-15-2025 Complete blood count Hemoglobin/Hematocrit [facility] Start: 10-15-2025 Creatinine measurement Serum Creatinine [facility] Start: 09-24-2025 Creatinine measurement Serum Creatinine [facility] Start: 09-03-2025 Creatinine measurement Serum Creatinine [facility] Start: 08-13-2025 Creatinine measurement Serum Creatinine [facility] Start: 07-08-2025 Creatinine measurement Serum Creatinine [facility] Start: 06-03-2025 Creatinine measurement Serum Creatinine [facility] Start: 05-13-2025 Creatinine measurement Serum Creatinine [facility] Start: 04-25-2025 Influenza vaccination Influenza Vaccine (Season Ended) [facility] Start: 04-21-2025 Creatinine measurement Serum Creatinine [facility] Start: 04-13-2025 End: 04-13-2025 Patient encounter procedure [facility] Start: 03-30-2025 End: 03-30-2025 Patient encounter procedure 03/30/2025 1:30 PM EDT Office Visit [facility] [address] [place] [address] Santosh Nuñez DO [address] [place] [address] [facility] Start: 03-24-2025 Creatinine measurement Serum Creatinine [facility] Start: 03-12-2025 End: 06-11-2025 CBC W Auto Differential panel - Blood COMPLETE BLOOD COUNT AND DIFFERENTIAL Lab Routine 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) Expected: 03/12/2025, Expires: 06/11/2025 [facility] Comment on above: Expected: 03/12/2025, Expires: Start: 03-12-2025 End: 06-11-2025 Chromogranin A [Mass/volume] in Serum or Plasma CHROMOGRANIN A Lab Routine 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) Expected: 03/12/2025, Expires: 06/11/2025 [facility] Comment on above: Expected: 03/12/2025, Expires: Start: 03-12-2025 End: 06-11-2025 Comprehensive metabolic 2000 panel - Serum or Plasma COMPREHENSIVE METABOLIC PANEL Lab Routine 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) Expected: 03/12/2025, Expires: 06/11/2025 [facility] Comment on above: Expected: 03/12/2025, Expires: Start: 03-12-2025 End: 06-11-2025 Gastrin [Mass/volume] in Serum or Plasma GASTRIN BLD Lab Routine 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) Expected: 03/12/2025, Expires: 06/11/2025 [facility] Comment on above: Expected: 03/12/2025, Expires: Start: 03-12-2025 End: 06-11-2025 Serotonin [Mass/volume] in Serum SEROTONIN BLD Lab Routine 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) Expected: 03/12/2025, Expires: 06/11/2025 [facility] Comment on above: Expected: 03/12/2025, Expires: Start: 03-10-2025 End: 03-10-2025 ambulatory Hematology/Oncolog y Comment on above: LAB AND SANDOSTATIN needs this date du e to PET scan on 03/09 Start: 03-10-2025 End: 03-10-2025 Patient encounter procedure 03/10/2025 12:45 PM EDT Office Visit [facility] [address] [place] [address] [place] [address] LAB AND SANDOSTATIN needs this date due to PET scan on 03/09 [facility] Comment on above: LAB AND SANDOSTATIN needs this date du e to PET scan on 03/09 Start: 03-09-2025 End: 12-09-2025 CBC W Auto Differential panel - Blood COMPLETE BLOOD COUNT AND DIFFERENTIAL Lab Routine Malignant carcinoid tumor of ileum (HCC) Expected: 03/09/2025 (Approximate), Expires: 12/09/2025 [facility] Comment on above: Expected: 03/09/2025 (Approximate), Expi res: 12/09/2025 Start: 03-09-2025 End: 06-08-2025 Chromogranin A [Mass/volume] in Serum or Plasma CHROMOGRANIN A Lab Routine Malignant carcinoid tumor of ileum (HCC) Expected: 03/09/2025 (Approximate), Expires: 06/08/2025 [facility] Comment on above: Expected: 03/09/2025 (Approximate), Expi res: 06/08/2025 Start: 03-09-2025 End: 12-09-2025 Comprehensive metabolic 2000 panel - Serum or Plasma COMPREHENSIVE METABOLIC PANEL Lab Routine Malignant carcinoid tumor of ileum (HCC) Expected: 03/09/2025 (Approximate), Expires: 12/09/2025 [facility] Comment on above: Expected: 03/09/2025 (Approximate), Expi res: 12/09/2025 Start: 03-09-2025 End: 06-08-2025 Gastrin [Mass/volume] in Serum or Plasma GASTRIN BLD Lab Routine Malignant carcinoid tumor of ileum (HCC) Expected: 03/09/2025 (Approximate), Expires: 06/08/2025 [facility] Comment on above: Expected: 03/09/2025 (Approximate), Expi res: 06/08/2025 Start: 03-09-2025 End: 06-08-2025 METANEPHRINES, FREE PLASMA METANEPHRINES, FREE PLASMA Lab Routine Malignant carcinoid tumor of ileum (HCC) Expected: 03/09/2025 (Approximate), Expires: 06/08/2025 [facility] Comment on above: Expected: 03/09/2025 (Approximate), Expi res: 06/08/2025 Start: 03-09-2025 End: 01-08-2026 PET+CT Brain for tau protein NM PET/CT NEUROENDOCRINE WHOLE BODY IMAGING Radiology Routine 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 Bone lesion Expected: 03/09/2025, Expires: 01/08/2026 [facility] Work Phone: Comment on above: Expected: 03/09/2025, Expires: Start: 03-09-2025 End: 06-08-2025 Serotonin [Mass/volume] in Serum SEROTONIN BLD Lab Routine Malignant carcinoid tumor of ileum (HCC) Expected: 03/09/2025 (Approximate), Expires: 06/08/2025 [facility] Comment on above: Expected: 03/09/2025 (Approximate), Expi res: 06/08/2025 Start: 03-09-2025 End: 06-08-2025 VASOACTIVE INTESTINAL POLYPEPTIDE (VIP), PLASMA VASOACTIVE INTESTINAL POLYPEPTIDE (VIP), PLASMA Lab Routine Malignant carcinoid tumor of ileum (HCC) Expected: 03/09/2025 (Approximate), Expires: 06/08/2025 [facility] Comment on above: Expected: 03/09/2025 (Approximate), Expi res: 06/08/2025 Start: 03-09-2025 End: 03-09-2025 Patient encounter procedure Molecular Im aging Comment on above: DOTATATE PET PT 0094 Start: 02-23-2025 Creatinine measurement Serum Creatinine [facility] Start: 02-10-2025 End: 02-10-2025 ambulatory 02/10/2025 10:00 AM EDT [facility] Hematology/Oncology [address] [place] [address] LAB AND SANDOSTATIN Hematology/Oncolog y Comment on above: LAB AND SANDOSTATIN Start: 02-10-2025 End: 02-10-2025 Patient encounter procedure 02/10/2025 9:45 AM EDT Office Visit [facility] [address] [place] [address] LAB AND SANDOSTATIN [facility] Comment on above: LAB AND SANDOSTATIN Start: 01-27-2025 Creatinine measurement Serum Creatinine [facility] Start: 01-22-2025 End: 04-23-2025 CBC W Auto Differential panel - Blood COMPLETE BLOOD COUNT AND DIFFERENTIAL Lab Routine 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) Expected: 01/22/2025, Expires: 04/23/2025 [facility] Work Phone: Comment on above: Expected: 01/22/2025, Expires: Start: 01-22-2025 End: 04-23-2025 Comprehensive metabolic 2000 panel - Serum or Plasma COMPREHENSIVE METABOLIC PANEL Lab Routine 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) Expected: 01/22/2025, Expires: 04/23/2025 [facility] Comment on above: Expected: 01/22/2025, Expires: Start: 01-22-2025 End: 04-23-2025 Ferritin [Mass/volume] in Serum or Plasma FERRITIN Lab Routine 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) Expected: 01/22/2025, Expires: 04/23/2025 [facility] Comment on above: Expected: 01/22/2025, Expires: Start: 01-22-2025 End: 04-23-2025 Iron and Iron binding capacity panel - Serum or Plasma IRON AND TIBC Lab Routine 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) Expected: 01/22/2025, Expires: 04/23/2025 [facility] Comment on above: Expected: 01/22/2025, Expires: Start: 01-20-2025 End: 01-20-2025 ambulatory Hematology/Oncolog y Comment on above: 6 WEEK LAB AND SANDOSTATIN Start: 01-20-2025 End: 01-20-2025 Patient encounter procedure 01/20/2025 9:15 AM EDT Office Visit [facility] [address] [place] [address] 6 WEEK LAB AND SANDOSTATIN [facility] Comment on above: 6 WEEK LAB AND SANDOSTATIN Start: 12-30-2024 End: 12-30-2024 ambulatory 12/30/2024 9:45 AM EDT [facility] Hematology/Oncology [address] [place] [address] SANDOSTATIN Hematology/Oncolog y Comment on above: SANDOSTATIN Start: 12-30-2024 End: 12-30-2024 Patient encounter procedure 12/30/2024 9:30 AM EDT Office Visit [facility] [address] [place] [place] [address] LAB AND SANDOSTATIN [facility] Comment on above: LAB AND SANDOSTATIN Start: 12-20-2024 End: 12-09-2025 CBC W Auto Differential panel - Blood COMPLETE BLOOD COUNT AND DIFFERENTIAL Lab Routine Iron deficiency anemia due to chronic blood loss Expected: 12/20/2024 (Approximate), Expires: 12/09/2025 [facility] Comment on above: Expected: 12/20/2024 (Approximate), Expi res: 12/09/2025 Start: 12-20-2024 End: 12-09-2025 Cobalamin (Vitamin B12) [Mass/volume] in Serum or Plasma VITAMIN B12 Lab Routine Iron deficiency anemia due to chronic blood loss Expected: 12/20/2024 (Approximate), Expires: 12/09/2025 [facility] Comment on above: Expected: 12/20/2024 (Approximate), Expi res: 12/09/2025 Start: 12-20-2024 End: 12-09-2025 Comprehensive metabolic 2000 panel - Serum or Plasma COMPREHENSIVE METABOLIC PANEL Lab Routine Iron deficiency anemia due to chronic blood loss Expected: 12/20/2024 (Approximate), Expires: 12/09/2025 [facility] Comment on above: Expected: 12/20/2024 (Approximate), Expi res: 12/09/2025 Start: 12-20-2024 End: 12-09-2025 Ferritin [Mass/volume] in Serum or Plasma FERRITIN Lab Routine Iron deficiency anemia due to chronic blood loss Expected: 12/20/2024 (Approximate), Expires: 12/09/2025 [facility] Comment on above: Expected: 12/20/2024 (Approximate), Expi res: 12/09/2025 Start: 12-20-2024 End: 12-09-2025 Folate [Mass/volume] in Serum or Plasma FOLATE, SERUM Lab Routine Iron deficiency anemia due to chronic blood loss Expected: 12/20/2024 (Approximate), Expires: 12/09/2025 [facility] Comment on above: Expected: 12/20/2024 (Approximate), Expi res: 12/09/2025 Start: 12-20-2024 End: 12-09-2025 Iron and Iron binding capacity panel - Serum or Plasma IRON AND TIBC Lab Routine Iron deficiency anemia due to chronic blood loss Expected: 12/20/2024 (Approximate), Expires: 12/09/2025 [facility] Comment on above: Expected: 12/20/2024 (Approximate), Expi res: 12/09/2025 Start: 12-20-2024 End: 12-20-2024 Patient encounter procedure 12/20/2024 9:00 AM EDT Office Visit [facility] [address] [place] [address] lab [facility] Comment on above: lab Start: 12-09-2024 End: 12-09-2024 ambulatory 12/09/2024 9:30 AM EDT [facility] Hematology/Oncology [address] [place] [address] LAB AND SANDOSTATIN Hematology/Oncolog y Comment on above: LAB AND SANDOSTATIN Start: 12-09-2024 End: 12-09-2024 Follow-up encounter 12/09/2024 9:00 AM EDT Visit (SP) Office Hematology/Oncology [address] [place] [address] Roselyn Leonard MD [address] [place] [address] Follow up after PET scan Hematology/Oncolog y Comment on above: Follow up after PET scan Start: 12-09-2024 End: 12-09-2024 Patient encounter procedure 12/09/2024 8:45 AM EDT Office Visit [facility] [address] [place] [address] LAB AND SANDOSTATIN [facility] Comment on above: LAB AND SANDOSTATIN Start: 12-08-2024 End: 11-18-2025 CBC W Auto Differential panel - Blood COMPLETE BLOOD COUNT AND DIFFERENTIAL Lab Routine Anemia, unspecified type Expected: 12/08/2024 (Approximate), Expires: 11/18/2025 [facility] Work Phone: Comment on above: Expected: 12/08/2024 (Approximate), Expi res: 11/18/2025 Start: 12-08-2024 End: 11-18-2025 Cobalamin (Vitamin B12) [Mass/volume] in Serum or Plasma VITAMIN B12 Lab Routine Anemia, unspecified type Expected: 12/08/2024 (Approximate), Expires: 11/18/2025 [facility] Comment on above: Expected: 12/08/2024 (Approximate), Expi res: 11/18/2025 Start: 12-08-2024 End: 11-18-2025 Comprehensive metabolic 2000 panel - Serum or Plasma COMPREHENSIVE METABOLIC PANEL Lab Routine Anemia, unspecified type Expected: 12/08/2024 (Approximate), Expires: 11/18/2025 [facility] Comment on above: Expected: 12/08/2024 (Approximate), Expi res: 11/18/2025 Start: 12-08-2024 End: 11-18-2025 Ferritin [Mass/volume] in Serum or Plasma FERRITIN Lab Routine Anemia, unspecified type Expected: 12/08/2024 (Approximate), Expires: 11/18/2025 [facility] Comment on above: Expected: 12/08/2024 (Approximate), Expi res: 11/18/2025 Start: 12-08-2024 End: 11-18-2025 Folate [Mass/volume] in Serum or Plasma FOLATE, SERUM Lab Routine Anemia, unspecified type Expected: 12/08/2024 (Approximate), Expires: 11/18/2025 [facility] Comment on above: Expected: 12/08/2024 (Approximate), Expi res: 11/18/2025 Start: 12-08-2024 End: 11-18-2025 Iron and Iron binding capacity panel - Serum or Plasma IRON AND TIBC Lab Routine Anemia, unspecified type Expected: 12/08/2024 (Approximate), Expires: 11/18/2025 [facility] Comment on above: Expected: 12/08/2024 (Approximate), Expi res: 11/18/2025 Start: 12-08-2024 End: 12-08-2024 Patient encounter procedure Molecular Im aging Comment on above: NM PET/CT NEUROENDOCRINE WHOLE BODY IMAG ING Start: 12-02-2024 End: 12-02-2024 ambulatory 12/02/2024 3:15 PM EDT Infusion Center Hematology/Oncology [address] [place] [address] [place] [address] Sandostatin inj q 3 weeks Hematology/Oncolog y Comment on above: Sandostatin inj q 3 weeks Start: 12-02-2024 Creatinine measurement Serum Creatinine [facility] Start: 12-02-2024 End: 09-12-2025 PET+CT Brain for tau protein NM PET/CT NEUROENDOCRINE WHOLE BODY IMAGING Radiology Routine Malignant carcinoid tumor of ileum (HCC) Expected: 12/02/2024, Expires: 09/12/2025 [facility] Work Phone: Comment on above: Expected: 12/02/2024, Expires: Start: 11-17-2024 End: 11-17-2024 Follow-up encounter 11/17/2024 9:00 AM EDT Visit (SP) Office Hematology/Oncology [address] [place] [address] Roselyn Leonard MD [address] [place] [address] hospital follow up Hematology/Oncolog y Comment on above: hospital follow up Start: 11-16-2024 BP Controlled (<130/80) BP Controlled (<130/80) [facility] Start: 11-10-2024 End: 11-10-2024 Patient encounter procedure 11/10/2024 9:30 AM EDT Office Visit [facility] [address] [place] [address] Rene Cannon MD [address] [place] [address] (Fax) [facility] Start: 11-06-2024 Creatinine measurement Serum Creatinine [facility] Start: 11-05-2024 End: 11-05-2024 ambulatory 11/05/2024 8:15 AM EDT Infusion Center Hematology/Oncology [address] [place] [address] lab and Sandostatin inj q 3 weeks Hematology/Oncolog y Comment on above: lab and Sandostatin inj q 3 weeks Start: 11-05-2024 End: 11-05-2024 Patient encounter procedure 11/05/2024 8:00 AM EDT Office Visit [facility] [address] [place] [address] lab and Sandostatin inj q 3 weeks [facility] Comment on above: lab and Sandostatin inj q 3 weeks Start: 10-23-2024 Medicare Annual Wellness Visit Medicare Annual Wellness Visit [facility] Start: 10-19-2024 End: 10-19-2024 Patient encounter procedure [facility] Comment on above: Arrived Start: 10-15-2024 End: 10-15-2024 ambulatory 10/15/2024 8:15 AM EST Infusion Center Hematology/Oncology [address] [place] [address] lab and Sandostatin inj q 3 weeks Hematology/Oncolog y Comment on above: lab and Sandostatin inj q 3 weeks Start: 10-15-2024 End: 10-15-2024 Patient encounter procedure 10/15/2024 8:00 AM EST Office Visit [facility] [address] [place] [address] lab and Sandostatin inj q 3 weeks [facility] Comment on above: lab and Sandostatin inj q 3 weeks Start: 10-13-2024 BP Controlled (<130/80) BP Controlled (<130/80) [facility] Start: 10-02-2024 BP Controlled (<130/80) BP Controlled (<130/80) [facility] Start: 09-24-2024 End: 09-24-2024 ambulatory 09/24/2024 8:15 AM [facility] Infusion Center Hematology/Oncology [address] [place] [address] lab and Sandostatin inj q 3 weeks Hematology/Oncolog y Comment on above: lab and Sandostatin inj q 3 weeks Start: 09-24-2024 End: 09-24-2024 Patient encounter procedure 09/24/2024 8:00 AM EST Office Visit [facility] [address] [place] [address] lab and Sandostatin inj q 3 weeks [facility] Comment on above: lab and Sandostatin inj q 3 weeks Start: 09-05-2024 Creatinine measurement Serum Creatinine [facility] Start: 09-03-2024 End: 09-03-2024 ambulatory 09/03/2024 8:15 AM EST Infusion Center Hematology/Oncology [address] [place] [address] lab and Sandostatin inj q 3 weeks Hematology/Oncolog y Comment on above: lab and Sandostatin inj q 3 weeks Start: 09-03-2024 End: 09-03-2024 Patient encounter procedure 09/03/2024 8:00 AM EST Office Visit [facility] [address] [place] [address] lab and Sandostatin inj q 3 weeks [facility] Comment on above: lab and Sandostatin inj q 3 weeks Start: 08-25-2024 Advance Directive Discussion Advance Directive Discussion [facility] Start: 08-13-2024 End: 08-13-2024 Follow-up encounter Hematology/Oncolog y Comment on above: 1 week follow up after pet scan with lab sandostatin inj Start: 08-13-2024 End: 08-13-2024 Patient encounter procedure 08/13/2024 1:15 PM EST Office Visit [facility] [address] [place] [address] [place] [address] 1 week follow up after pet scan with lab sandostatin inj [facility] Comment on above: 1 week follow up after pet scan with lab sandostatin inj Start: 08-07-2024 BP Controlled (<130/80) BP Controlled (<130/80) [facility] Start: 07-22-2024 End: 08-07-2025 PET+CT Brain for tau protein NM PET/CT NEUROENDOCRINE WHOLE BODY IMAGING Radiology Routine 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 Expected: 07/22/2024 (Approximate), Expires: 08/07/2025 [facility] Work Phone: Comment on above: Expected: 07/22/2024 (Approximate), Expi res: 08/07/2025 Start: 07-15-2024 End: 07-15-2024 Follow-up encounter Hematology/Oncolog y Comment on above: 6 week follow up with lab and sandostati n inj Start: 07-15-2024 End: 07-15-2024 Patient encounter procedure 07/15/2024 9:15 AM EST Office Visit [facility] [address] [place] [address] 6 week follow up with lab and sandostatin inj [facility] Comment on above: 6 week follow up with lab and sandostati n inj Start: 06-17-2024 End: 06-17-2024 ambulatory 06/17/2024 9:00 AM EDT [facility] Hematology/Oncology [address] [place] [address] 2 week sandostatin inj Hematology/Oncolog y Comment on above: 2 week sandostatin inj Start: 06-03-2024 End: 06-03-2024 Follow-up encounter 06/03/2024 3:30 PM EDT Visit (SP) Office Hematology/Oncology [address] [place] [address] Roselyn Leonard MD [address] [place] [address] Pet scan and follow up / Same day appts per Dr Henry Hematology/Oncolog y Comment on above: Pet scan and follow up / Same day appts per Dr Henry Start: 06-03-2024 End: 06-03-2024 Patient encounter procedure 06/03/2024 12:45 PM EDT Appointment Radiology Pet CT [address] [place] [address] Pet scan and follow up / Same day appts per Dr Henry Radiology Pet CT Comment on above: Pet scan and follow up / Same day appts per Dr Henry Start: 05-20-2024 End: 05-20-2024 Follow-up encounter Hematology/Oncolog y Comment on above: 8 week follow up with Sandostatin inj / NO LABS Start: 05-13-2024 End: 05-13-2024 Patient encounter procedure 05/13/2024 7:45 AM EDT Appointment Radiology Pet CT [address] [place] [address] Ct CPancreas and Pelvis with contrast Radiology Pet CT Comment on above: Ct CPancreas and Pelvis with contrast Start: 05-12-2024 End: 03-24-2025 CBC W Auto Differential panel - Blood COMPLETE BLOOD COUNT AND DIFFERENTIAL Lab Routine 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) Expected: 05/12/2024 (Approximate), Expires: 03/24/2025 [facility] Comment on above: Expected: 05/12/2024 (Approximate), Expi res: 03/24/2025 Start: 05-12-2024 End: 08-11-2024 Chromogranin A [Mass/volume] in Serum or Plasma CHROMOGRANIN A Lab Routine 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) Expected: 05/12/2024 (Approximate), Expires: 08/11/2024 [facility] Comment on above: Expected: 05/12/2024 (Approximate), Expi res: 08/11/2024 Start: 05-12-2024 End: 03-24-2025 Comprehensive metabolic 2000 panel - Serum or Plasma COMPREHENSIVE METABOLIC PANEL Lab Routine 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) Expected: 05/12/2024 (Approximate), Expires: 03/24/2025 [facility] Comment on above: Expected: 05/12/2024 (Approximate), Expi res: 03/24/2025 Start: 05-12-2024 End: 04-23-2025 CT Abdomen and Pelvis W contrast IV CT PANCREAS/PELVIS W IVCON Radiology Routine 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, unspecified location of malignancy (HCC) Expected: 05/12/2024 (Approximate), Expires: 04/23/2025 [facility] Work Phone: Comment on above: Expected: 05/12/2024 (Approximate), Expi res: 04/23/2025 Start: 05-12-2024 End: 04-23-2025 CT Chest W contrast IV CT CHEST W IVCON Radiology Routine 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) Expected: 05/12/2024 (Approximate), Expires: 04/23/2025 [facility] Comment on above: Expected: 05/12/2024 (Approximate), Expi res: 04/23/2025 Start: 05-12-2024 End: 08-11-2024 Gastrin [Mass/volume] in Serum or Plasma GASTRIN BLD Lab Routine 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) Expected: 05/12/2024 (Approximate), Expires: 08/11/2024 [facility] Comment on above: Expected: 05/12/2024 (Approximate), Expi res: 08/11/2024 Start: 05-12-2024 End: 08-11-2024 Serotonin [Mass/volume] in Serum SEROTONIN BLD Lab Routine 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) Expected: 05/12/2024 (Approximate), Expires: 08/11/2024 [facility] Comment on above: Expected: 05/12/2024 (Approximate), Expi res: 08/11/2024 Start: 05-12-2024 End: 08-11-2024 VASOACTIVE INTESTINAL POLYPEPTIDE (VIP), PLASMA VASOACTIVE INTESTINAL POLYPEPTIDE (VIP), PLASMA Lab Routine 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) Expected: 05/12/2024 (Approximate), Expires: 08/11/2024 [facility] Comment on above: Expected: 05/12/2024 (Approximate), Expi res: 08/11/2024 Start: 05-12-2024 End: 05-12-2024 Patient encounter procedure 05/12/2024 7:45 AM EDT Appointment Radiology Pet CT [address] [place] [address] [place] [address] Ct CPancreas and Pelvis with contrast Radiology Pet CT Comment on above: Ct CPancreas and Pelvis with contrast Start: 04-27-2024 End: 04-27-2024 Patient encounter procedure 04/27/2024 9:30 AM EDT Office Visit [facility] [address] [address] Rene Cannon MD [address] [place] [address] Benign essential hypertension (CMS/HCC); Hypertensive nephropathy (CMS/HCC); Stage 2 chronic kidney disease; Microalbuminuria [facility] Comment on above: Benign essential hypertension (CMS/HCC); Hypertensive nephropathy (CMS/HCC); Stage 2 chronic kidney disease; Microalbuminuria Start: 04-25-2024 Covid-19 Vaccine ( season) Covid-19 Vaccine () [facility] Start: 04-25-2024 Covid-19 Vaccine () Covid-19 Vaccine () [facility] Start: 04-25-2024 Influenza vaccination [facility] Start: 04-21-2024 End: 03-24-2025 CBC W Auto Differential panel - Blood COMPLETE BLOOD COUNT AND DIFFERENTIAL Lab Routine Malignant carcinoid tumor of ileum (HCC) Anemia, unspecified type Expected: 04/21/2024 (Approximate), Expires: 03/24/2025 [facility] Comment on above: Expected: 04/21/2024 (Approximate), Expi res: 03/24/2025 Start: 04-21-2024 End: 03-24-2025 Cobalamin (Vitamin B12) [Mass/volume] in Serum or Plasma VITAMIN B12 Lab Routine Malignant carcinoid tumor of ileum (HCC) Anemia, unspecified type Expected: 04/21/2024 (Approximate), Expires: 03/24/2025 [facility] Comment on above: Expected: 04/21/2024 (Approximate), Expi res: 03/24/2025 Start: 04-21-2024 End: 03-24-2025 Comprehensive metabolic 2000 panel - Serum or Plasma COMPREHENSIVE METABOLIC PANEL Lab Routine Malignant carcinoid tumor of ileum (HCC) Anemia, unspecified type Expected: 04/21/2024 (Approximate), Expires: 03/24/2025 [facility] Comment on above: Expected: 04/21/2024 (Approximate), Expi res: 03/24/2025 Start: 04-21-2024 End: 03-24-2025 Ferritin [Mass/volume] in Serum or Plasma FERRITIN Lab Routine Malignant carcinoid tumor of ileum (HCC) Anemia, unspecified type Expected: 04/21/2024 (Approximate), Expires: 03/24/2025 [facility] Comment on above: Expected: 04/21/2024 (Approximate), Expi res: 03/24/2025 Start: 04-21-2024 End: 03-24-2025 Folate [Mass/volume] in Serum or Plasma FOLATE, SERUM Lab Routine Malignant carcinoid tumor of ileum (HCC) Anemia, unspecified type Expected: 04/21/2024 (Approximate), Expires: 03/24/2025 [facility] Comment on above: Expected: 04/21/2024 (Approximate), Expi res: 03/24/2025 Start: 04-21-2024 End: 03-24-2025 Iron and Iron binding capacity panel - Serum or Plasma IRON AND TIBC Lab Routine Malignant carcinoid tumor of ileum (HCC) Anemia, unspecified type Expected: 04/21/2024 (Approximate), Expires: 03/24/2025 [facility] Comment on above: Expected: 04/21/2024 (Approximate), Expi res: 03/24/2025 Start: 04-21-2024 End: 04-21-2024 ambulatory 04/21/2024 8:15 AM EDT [facility] Hematology/Oncology [address] [place] [address] 4 week lab and sandostatin inj Hematology/Oncolog y Comment on above: 4 week lab and sandostatin inj Start: 04-21-2024 End: 04-21-2024 Patient encounter procedure 04/21/2024 8:00 AM EDT Office Visit [facility] [address] [place] [address] 4 week lab and sandostatin inj [facility] Comment on above: 4 week lab and sandostatin inj Start: 03-24-2024 End: 03-24-2024 Follow-up encounter Hematology/Oncolog y Comment on above: 4 week follow up with lab / Please call patient IF an earlier time opens. Start: 03-24-2024 End: 03-24-2024 Patient encounter procedure 03/24/2024 10:45 AM EDT Office Visit [facility] [address] [place] [address] 4 week follow up with lab and sandostatin [facility] Comment on above: 4 week follow up with lab and sandostati n Start: 02-25-2024 End: 02-25-2024 Follow-up encounter Hematology/Oncolog y Comment on above: 8 week follow up with lab and sandostati n inj Start: 02-25-2024 End: 02-25-2024 Patient encounter procedure 02/25/2024 11:15 AM EDT Office Visit [facility] [address] [place] [address] 8 week follow up with lab and sandostatin inj [facility] Comment on above: 8 week follow up with lab and sandostati n inj Start: 02-18-2024 End: 02-26-2025 CT Abdomen and Pelvis W contrast IV CT PANCREAS/PELVIS W IVCON Radiology Routine Malignant carcinoid tumor of ileum (HCC) Expected: 02/18/2024 (Approximate), Expires: 02/26/2025 [facility] Work Phone: Comment on above: Expected: 02/18/2024 (Approximate), Expi res: 02/26/2025 Start: 02-18-2024 End: 02-18-2024 Patient encounter procedure 02/18/2024 7:45 AM EDT Appointment Radiology Pet CT [address] [place] [address] CT PELVIS Radiology Pet CT Comment on above: CT PELVIS Start: 01-28-2024 End: 01-24-2025 CBC W Auto Differential panel - Blood COMPLETE BLOOD COUNT AND DIFFERENTIAL Lab Routine 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) Anemia, unspecified type Expected: 01/28/2024 (Approximate), Expires: 01/24/2025 [facility] Work Phone: Comment on above: Expected: 01/28/2024 (Approximate), Expi res: 01/24/2025 Start: 01-28-2024 End: 04-28-2024 Chromogranin A [Mass/volume] in Serum or Plasma CHROMOGRANIN A Lab Routine 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) Anemia, unspecified type Expected: 01/28/2024 (Approximate), Expires: 04/28/2024 [facility] Comment on above: Expected: 01/28/2024 (Approximate), Expi res: 04/28/2024 Start: 01-28-2024 End: 01-24-2025 Cobalamin (Vitamin B12) [Mass/volume] in Serum or Plasma VITAMIN B12 Lab Routine 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) Anemia, unspecified type Expected: 01/28/2024 (Approximate), Expires: 01/24/2025 [facility] Comment on above: Expected: 01/28/2024 (Approximate), Expi res: 01/24/2025 Start: 01-28-2024 End: 01-24-2025 Comprehensive metabolic 2000 panel - Serum or Plasma COMPREHENSIVE METABOLIC PANEL Lab Routine 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) Anemia, unspecified type Expected: 01/28/2024 (Approximate), Expires: 01/24/2025 [facility] Comment on above: Expected: 01/28/2024 (Approximate), Expi res: 01/24/2025 Start: 01-28-2024 End: 01-24-2025 Ferritin [Mass/volume] in Serum or Plasma FERRITIN Lab Routine 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) Anemia, unspecified type Expected: 01/28/2024 (Approximate), Expires: 01/24/2025 [facility] Comment on above: Expected: 01/28/2024 (Approximate), Expi res: 01/24/2025 Start: 01-28-2024 End: 01-24-2025 Folate [Mass/volume] in Serum or Plasma FOLATE, SERUM Lab Routine 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) Anemia, unspecified type Expected: 01/28/2024 (Approximate), Expires: 01/24/2025 [facility] Comment on above: Expected: 01/28/2024 (Approximate), Expi res: 01/24/2025 Start: 01-28-2024 End: 01-24-2025 Iron and Iron binding capacity panel - Serum or Plasma IRON AND TIBC Lab Routine 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) Anemia, unspecified type Expected: 01/28/2024 (Approximate), Expires: 01/24/2025 [facility] Comment on above: Expected: 01/28/2024 (Approximate), Expi res: 01/24/2025 Start: 01-28-2024 End: 01-28-2024 Follow-up encounter Hematology/Oncolog y Comment on above: 8 week follow up with lab and sandostati n inj Start: 01-28-2024 End: 01-28-2024 Patient encounter procedure 01/28/2024 9:30 AM EDT Office Visit [facility] [address] [place] [address] 8 week follow up with lab and sandostatin inj [facility] Comment on above: 8 week follow up with lab and sandostati n inj Start: 12-31-2023 End: 12-31-2023 ambulatory 12/31/2023 9:30 AM EDT [facility] Hematology/Oncology [address] [place] [address] Sandostatin injection ok'd by [facility] Hematology/Oncolog y Comment on above: Sandostatin injection ok'd by [facility] Start: 10-13-2023 End: 01-12-2024 CBC W Auto Differential panel - Blood [facility] Work Phone: Comment on above: Expected: 10/13/2023, Expires: Start: 10-13-2023 End: 01-12-2024 TYPE AND SCREEN,30 DAY [facility] Work Phone: Comment on above: Expected: 10/13/2023, Expires: Start: 10-10-2023 [facility] Start: 10-09-2023 [facility] Start: 10-08-2023 [facility] Start: 10-08-2023 Blood culture for bacteria, including anaerobic screen Blood Culture [facility] Start: 10-07-2023 Referral to infectious diseases physician [facility] Start: 10-07-2023 [facility] Start: 10-06-2023 Bacteria identified in Unspecified specimen by [employer] culture [facility] Start: 10-06-2023 Hospital admission [facility] Start: 10-06-2023 [facility] Start: 10-06-2023 Bacteria identified in Blood by Culture [facility] Start: 10-06-2023 Blood culture for bacteria, including anaerobic screen Blood Culture [facility] Start: 08-25-2023 Advance Directive Discussion Advance Directive Discussion [facility] Start: 08-25-2023 Behavioral Health Screening Behavioral Health Screening [facility] Start: 08-25-2023 Depression Assessment Depression Assessment [facility] Start: 07-26-2023 [facility] Start: 07-25-2023 Comprehensive metabolic 2000 panel - Serum or Plasma [facility] Start: 07-25-2023 [facility] Start: 07-24-2023 Blood chemistry [facility] Start: 07-24-2023 Referral to Blanket Winder Operator [facility] Start: 07-24-2023 End: 07-24-2023 [facility] Start: 07-24-2023 Referral to speech and language therapy service [facility] Start: 07-24-2023 Referral to evs attendant [facility] Start: 07-24-2023 Excision of [place]odenum, Via Natural or Artificial Opening Endoscopic, Diagnostic Excision of Duodenum, Via Natural or Artificial Opening Endoscopic, Diagnostic [facility] Start: 07-24-2023 Excision of Stomach, Pylorus, Via Natural or Artificial Opening Endoscopic, Diagnostic Excision of Stomach, Pylorus, Via Natural or Artificial Opening Endoscopic, Diagnostic [facility] Start: 07-24-2023 Hospital admission [facility] Start: 07-24-2023 Referral to manager applied [facility] Start: 04-25-2023 Covid-19 Vaccine ( season) Covid-19 Vaccine ( season) [facility] Start: 04-25-2023 Influenza vaccination Influ[facility]) [facility] Start: 01-17-2023 End: 01-17-2023 [facility] Start: 10-16-2022 Creatinine measurement Creatinine monitoring [facility] Start: 10-16-2022 Potassium monitoring Potassium monitoring [facility] Start: 08-25-2022 Advance Directive Discussion Advance Directive Discussion [facility] Start: 08-25-2022 Depression Assessment Depression Assessment [facility] Start: 12-04-2021 End: 12-04-2021 Patient encounter procedure 12/04/2021 Office Visit Cardiology Douglas Gutierrez MD [address] [place] [address] [facility] Start: 04-25-2021 Influenza vaccination Flu vaccine (#1) [facility] Start: 2020 Pneumococcal 65+ years Vaccine (1 of 1 - PPSV23) Pneumococcal 65+ years Vaccine (1 of 1 - PPSV23) [facility] Start: 2020 Pneumococcal Vaccine: 65+ (1 - PCV) Pneumococcal Vaccine: 65+ (1 - PCV) [facility] Start: 2020 Pneumococcal Vaccine: 65+ (1 of 1 - PCV) Pneumococcal Vaccine: 65+ (1 of 1 - PCV) [facility] Start: 2015 RSV Vaccine (1 - 1-dose 60+ series) RSV Vaccine (1 - 1-dose 60+ series) [facility] Start: 2015 RSV Vaccine (1 - Risk 60-74 years 1-dose series) RSV Vaccine (1 - Risk 60-74 years 1-dose series) [facility] Start: 2010 Prostate specific antigen measurement Prostate Cancer Screening Discussion [facility] Start: 2005 Pneumococcal Vaccine: 50+ (1 of 1 - PCV) Pneumococcal Vaccine: 50+ (1 of 1 - PCV) [facility] Start: 2005 Shingles Vaccine (1 of 2) Shingles Vaccine (1 of 2) [facility] Start: 2005 Shingrix Vaccine (1 of 2) Shingrix Vaccine (1 of 2) [facility] Start: 2000 Diabetes Screening Diabetes Screening [facility] Start: 2000 Screening for malignant neoplasm of colon [facility] Start: 1990 Lipid panel Lipid Screening [facility] Start: 1974 DTaP/Tdap/Td vaccine (1 - Tdap) DTaP/Tdap/Td vaccine (1 - Tdap) [facility] Start: 1974 Pneumococcal Vaccine: 50+ (1 of 2 - PCV) Pneumococcal Vaccine: 50+ (1 of 2 - PCV) [facility] Start: 1974 Urine microalbumin profile DTaP,Tdap,Td Vaccine (1 - Tdap) [facility] Start: 1973 Annual PCP Team Chronic Disease Visit Annual PCP Team Chronic Disease Visit [facility] Start: 1973 Anxiety Screening Anxiety Screening [facility] Start: 1973 BP Controlled (<130/80) BP Controlled (<130/80) [facility] Start: 1973 Depression Screening Depression Screening [facility] Start: 1973 Hepatitis C screening Hepatitis C Screening [facility] Start: 1967 Depression Screen Depression Screen [facility] Start: 1961 Pneumococcal Vaccine: 65+ Years (1 of 2 - PCV) Pneumococcal Vaccine: 65+ Years (1 of 2 - PCV) [facility] Start: 1960 COVID-19 Vaccine (1) COVID-19 Vaccine (1) [facility] Start: 01-15-1956 Covid-19 Vaccine (#1) Covid-19 Vaccine (#1) [facility] Start: 1955 Hepatitis C screening Hepatitis C screen [facility] Start: 1955 Screening for malignant neoplasm of colon [facility] Anion gap measurement [facility] Blood chemistry 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) Every 3 weeks for 18 Occurrences starting 02/10/2024 until 02/09/2025 [facility] Comment on above: Every 3 weeks for 18 Occurrences startin g 02/10/2024 until 02/09/2025 End: 12-09-2025 CBC W Auto Differential panel - Blood COMPLETE BLOOD COUNT AND DIFFERENTIAL Lab Routine Iron deficiency anemia due to chronic blood loss Every 3 weeks for 18 Occurrences starting 12/09/2024 until 12/09/2025 [facility] Comment on above: Every 3 weeks for 18 Occurrences startin g 12/09/2024 until 12/09/2025 End: 02-09-2025 Chromogranin A [Mass/volume] in Serum or Plasma CHROMOGRANIN A Lab Routine 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) Every 3 weeks for 18 Occurrences starting 02/10/2024 until 02/09/2025 [facility] Comment on above: Every 3 weeks for 18 Occurrences startin g 02/10/2024 until 02/09/2025 Chromogranin A [Mass/volume] in Serum or Plasma CHROMOGRANIN A Lab Routine 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) 06/03/2024 12:46 PM EDT [facility] End: 02-09-2025 Comprehensive metabolic 2000 panel - Serum or Plasma COMPREHENSIVE METABOLIC PANEL Lab Routine 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) Every 3 weeks for 18 Occurrences starting 02/10/2024 until 02/09/2025 [facility] Comment on above: Every 3 weeks for 18 Occurrences startin g 02/10/2024 until 02/09/2025 End: 12-09-2025 Comprehensive metabolic 2000 panel - Serum or Plasma COMPREHENSIVE METABOLIC PANEL Lab Routine Iron deficiency anemia due to chronic blood loss Every 3 weeks for 18 Occurrences starting 12/09/2024 until 12/09/2025 [facility] Comment on above: Every 3 weeks for 18 Occurrences startin g 12/09/2024 until 12/09/2025 Dup-scan xtr veins c omplete bilateral study VASCULAR REPORT Imaging Ordered: 11/08/2021 [facility] Comment on above: Ordered: 11/08/2021 End: 02-09-2025 Gastrin [Mass/volume] in Serum or Plasma GASTRIN BLD Lab Routine 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) Every 3 weeks for 18 Occurrences starting 02/10/2024 until 02/09/2025 [facility] Work Phone: Comment on above: Every 3 weeks for 18 Occurrences startin g 02/10/2024 until 02/09/2025 Patient Education [facility] Work Phone: Patient referral [facility] Work Phone: PET+CT Brain for tau protein NM PET/CT NEUROENDOCRINE WHOLE BODY IMAGING Radiology Routine 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 08/03/2024 8:45 AM EST [facility] Work Phone: End: 06-19-2025 PET+CT Whole body Bone W 18F-NaF IV NM PET/CT WHOLE BODY SUBSEQUENT Radiology Routine 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 Bone lesion 1 Occurrences starting 05/20/2024 until 06/19/2025 [facility] Work Phone: Comment on above: 1 Occurrences starting 05/20/2024 until 06/19/2025 PET+CT Whole body Jignesh ne W 18F-NaF IV NM PET/CT WHOLE BODY SUBSEQUENT Radiology Routine 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 Bone lesion 06/03/2024 2:28 PM EDT [facility] Work Phone: End: 02-09-2025 Serotonin [Mass/volume] in Serum SEROTONIN BLD Lab Routine 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) Every 3 weeks for 18 Occurrences starting 02/10/2024 until 02/09/2025 [facility] Comment on above: Every 3 weeks for 18 Occurrences startin g 02/10/2024 until 02/09/2025 Serotonin [Mass/volu me] in Serum SEROTONIN BLD Lab Routine 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) 06/03/2024 12:46 PM EDT [facility] End: 11-07-2021 Stress test, myoview Stress test, myoview Cardiac Services Routine Chest pain, unspecified type Syncope, unspecified syncope type 1 Occurrences starting 11/07/2021 until 11/07/2021 [facility] Work Phone: Comment on above: 1 Occurrences starting 11/07/2021 until 11/07/2021 End: 02-09-2025 Vasoactive intestinal peptide [Mass/volume] in Serum or Plasma VIP Lab Routine 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 Immunizations Immunization Date Immunization Notes Care Provider Kaylie mckoy 02-16-2023 tetanus toxoid, redu clyde diphtheria toxoid, and acellular pertussis vaccine, adsorbed Cleveland Alberts MD Work Phone: [facility] Payers Date Payer Category Payer Self-pay [id number] 2024 Private Health Insurance [id number] 2024 Unknown [id number] 2020 Medicare [id number] 2020 Medicare [id number] 2017 Blue Cross Blue Shield 1.2.8 [id number] 2017 Unknown 2017 Unknown [id number] 1959 Unknown [id number] 1955 Unknown [id number] 2.16.84 [id number] 1955 Unknown [id number] 2.16.84 [id number] 1955 Unknown [id number] 2.16.84 0.1.715943.3.579.2.593 1955 Unknown [id number] 2.16.84 0.1.689748.3.579.2.593 1955 Unknown [id number] 2.16.8 40.1.937214.3.579.2.174 1955 Unknown [id number] 2.16.8 40.1.732331.3.579.2.174 1955 Unknown [id number] 2.16.8 40.1.269673.3.579.2.174 1955 Unknown [id number] 2.16.8 40.1.774612.3.579.2.174 1955 Unknown [id number] 2.16.8 40.1.859978.3.579.2.174 1955 Unknown [id number] 2.16.8 40.1.848332.3.579.2.174 1955 Unknown [id number] 2.16. [id number] 1955 Unknown [id number] 2.16. [id number] 1955 Unknown [id number] 2.16. 840.1.173081.3.579.2.356 1955 Unknown [id number] 2.16.84 0.1.388586.3.579.2.1259 1955 Unknown [id number] 2.16.84 0.1.205282.3.579.2.1259 1955 Unknown [id number] 2.16.84 0.1.536517.3.579.2.1259 1955 Unknown [id number] 2.16.84 0.1.039745.3.579.2.1259 Unknown [id number] 2.16.8 [id number] Social History Date Type Detail Facility Start: 10-23-2021 End: 08-07-2023 Tobacco smoking status MOIS Never smoked tobacco [employer] Start: 10-23-2021 End: 08-07-2023 Tobacco use and exposure Smokeless tobacco non-user [employer] Work Phone: Start: 10-24-2021 End: 01-20-2025 Alcohol intake Current drinker of alcohol (finding) [facility] [employer] Work Phone: Start: 10-24-2021 End: 08-07-2023 Alcohol intake [facility] Comment on above: couple beers at [facility]; Start: 1955 Sex Assigned At Not on file M sue [employer] Work Phone: Start: 08-07-2023 End: 11-02-2024 Sex Assigned At [facility] Start: 1955 Sex Assigned At [facility] smoking consumption unknown [facility] Start: 08-07-2023 End: 08-28-2023 Alcohol intake Ex-drinker (finding) [facility] National Score (1-10 0), lower number is lower risk 63 [facility] Start: 10-02-2023 Alcohol Comment a few beers per day [facility] Has the Exabeam, or Megadyne threatened to shut off services in your home in past 12Mo No [facility] (I/We) worried shelia er (my/our) food would run out before (I/we) got money to buy more. Never true [facility] Start: 11-16-2023 Gender identity Identifies as male gender (finding) [facility] Start: 11-16-2023 Sexual orientation Heterosexual (hector jeffers) [facility] Do you belong to any clubs or organizations such as jewish groups, unions, fraternal or athletic groups, or school groups? Yes [facility] Are you now , , , , never or living with a partner? [facility] How often to you hav e a drink containing alcohol? 4 or more times a week [facility] How many standard dr inks containing alcohol do you have on a typical day? 5 or 6 [facility] How often do you hav e 6 or more drinks on 1 occasion? Weekly [facility] How hard is it for y ou to pay for the very basics like food, housing, medical care, and heating Not very hard [facility] Do you feel stress - tense, restless, nervous, or anxious, or unable to sleep at night because your mind is troubled all the time - these days [OSQ] To some extent [facility] Start: 06-10-2023 Education 13 [facility] Start: 06-10-2023 Alcohol Comment Caffeine intak e : 1-2 cups perday [facility] Start: 10-28-2024 Sex Male (finding) [facility] Medical Equipment Procedure Code Equipment Code Equipment Origin al Text Equipment Identifier Dates [id number] Percutane Endoscopic Gastrostomy Set [id number] Start: 08-13-2023 Jejunal Feeding Set 12ff X 66cm [id number] Start: 08-13-2023 Goals Date Patient Goal Desired Activity /State Functional Status Date Assessment Result Facility 11-03-2024 Are you deaf, or do you have serious difficulty hearing No 11/03/2024 3:16 PM Guerline Donnelly RN No [facility] 11-03-2024 Are you blind, or do you have serious difficulty seeing, even when wearing glasses No 11/03/2024 3:16 PM Guerline Donnelly RN No [facility] 11-03-2024 Do you have serious difficulty walking or climbing stairs No 11/03/2024 3:16 PM Guerline Donnelly RN No [facility] 11-03-2024 Do you have difficul ty dressing or bathing No 11/03/2024 3:16 PM Guerline Donnelly, LUCILLE [facility] 11-03-2024 Because of a physica l, mental, or emotional condition, do you have difficulty doing errands alone such as visiting a physician's office or shopping No 11/03/2024 3:16 PM Guerline Donnelly RN No [facility] 11-07-2023 Are you deaf, or do you have serious difficulty hearing No 11/07/2023 2:39 PM Rubi Caal RN No [facility] 11-07-2023 Are you blind, or do you have serious difficulty seeing, even when wearing glasses No 11/07/2023 2:39 PM Rubi Caal RN No [facility] 11-07-2023 Do you have serious difficulty walking or climbing stairs No 11/07/2023 2:39 PM Rubi Caal RN No [facility] 11-07-2023 Do you have difficul ty dressing or bathing No 11/07/2023 2:39 PM Rubi Caal, LUCILLE No [facility] 11-07-2023 Because of a physica l, mental, or emotional condition, do you have difficulty doing errands alone such as visiting a physician's office or shopping No 11/07/2023 2:39 PM Rubi Caal, LUCILLE No [facility] 10-10-2023 Functional status Patient at Baseline [facility] Work Phone: 07-26-2023 Functional status Patient at Baseline [facility] Work Phone: 07-24-2023 Functional status Patient at Baseline [facility] Work Phone: Mental Status Date Assessment Result Facility 11-03-2024 Because of a physica l, mental, or emotional condition, do you have serious difficulty concentrating, remembering, or making decisions No 11/03/2024 3:16 PM EDT Guerline De La Torre, LUCILLE No [facility] 11-07-2023 Because of a physica l, mental, or emotional condition, do you have serious difficulty concentrating, remembering, or making decisions No 11/07/2023 2:39 PM Rubi Caal, LUCILLE No [facility] 10-10-2023 Cognitive function Cognitive Sta tus Patient at Baseline [facility] Work Phone: 07-26-2023 Cognitive function Cognitive Sta tus Patient at Baseline [facility] Work Phone: 07-24-2023 Cognitive function Cognitive Sta tus Patient at Baseline [facility] Work Phone: Clinical Notes 11-07-2021 to 02-08-2025 Telephone Encounter - Pratik Naik - 02/08/2025 11:05 AM EDTTelephone Encounter - Pratik Naik - 02/08/2025 11:05 AM EDTTelephone Encounter - Vicki Cano - 02/07/2025 3:02 PM EDT Note Date & Type Note Facility 02-08-2025 Telephone encounter Note SPOKE WITH PT SCHEDULED, NEXT TREATMENT IS 02/10, SCHEDULED 03/09, TREATMENT FOLLOWING DAY [facility] 02-08-2025 Miscellaneous Notes SPOKE WITH PT SCHEDULED, NEXT TREATMENT IS 02/10, SCHEDULED 03/09, TREATMENT FOLLOWING DAY [facility] Comments for Assistant Branch Operations Manager: GA-68-/Shashi March 09, 2025 Will the patient need [...] Dotatate Image: 12/08/24 Scan: positive Isotope used: GA-68-/[place] Positive Scan Schedule at place of last (DOS) [facility] or [facility] Negative Scan Schedule at ANY Dotatate site requested Isotope used: [facility] Copper CU-64 [place]/ GA-68 (NETSPOT) Dotatate Dotatate [id number] (54cCi) Gallium Dotatate (NetSpot) Route to: P PET REAL ESTATE LOAN OFFICER [facility] This form is used for MAIN CAMPUS APPOINTMENTS ONLY. Is this request for a Main [place] PET scan appointment? Yes: Shuttler Car: Jordyn Valerio Who do we call to schedule this appointment? Patient Requesting Staff Roselyn Leonard Area Code + Phone/Pager: [phone] PET Orders (A delay in scheduling will [...] scans required to be done at time of PET scan? No Is the request for a PET MR ? No What account will diagnostic testing appointment be linked to? P/F Will the patient need anesthesia? NO Send requests to P COORD REVIEW [facility] documented in this encounter [facility] 02-07-2025 Telephone encounter Note DOTAT[facility] Comments for Assistant Branch Operations Manager: [email or web address]/[email or web address] March 09, 2025 Will the patient need [...] Dotatate Image: 12/08/24 Scan: positive Isotope used: GA-68-/[place] Positive Scan Schedule at place of last (DOS) [facility] or [facility] Negative Scan Schedule at ANY Dotatate site requested Isotope used: [facility] Copper CU-64 [place]/ GA-68 (NETSPOT) Dotatate Dotatate [id number] (54cCi) Gallium Dotatate (NetSpot) Route to: P PET REAL ESTATE LOAN OFFICER MC [facility] Work Phone: 02-07-2025 Telephone encounter Note This form is used for MAIN CAMPUS APPOINTMENTS ONLY. Is this request for a Main [place] PET scan appointment? Yes: Shuttler Car: Jordyn Valerio Who do we call to schedule this appointment? Patient Requesting Staff Roselyn Leonard Area Code + Phone/Pager: [phone] PET Orders (A delay in scheduling will [...] scans required to be done at time of PET scan? No Is the request for a PET MR ? No What account will diagnostic testing appointment be linked to? P/F Will the patient need anesthesia? NO Send requests to P COORD REVIEW MC [facility] 01-19-2025 Note [facility] 01-19-2025 History of Present illness Narrative Images from the original note were not included. NAME: Wily, Aisha [facility] NO.: [id number] DATE OF SERVICE: January 20, 2025 (Francisco) Some elements in this clinic note that are critical to medical decision making have been carefully reviewed and included from a prior clinic note dated: December 09, 2024 (Raoul) Referring Provider: Dr. 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 The patient is status post palliative GJ bypass on 10/29/2023 and presents for systemic therapy with SSA (Sandostatin). CT scan in January 2024 with improvement in disease. Symptoms remain stable overall except for a recent episode (April 2024) of syncope that was preceded by nausea. I am unsure if this is related to active disease versus single episode. Additionally has a 1.7 cm irregularly marginated nodular mass in the left apical lung that I'd like to get a PET scan for to delineate better. - PET showed non-avidity of this lesion in June 2024. Dotatate PET November 2024 appears to show no evidence of progressive disease. PLAN: C16 Sandostatin today C17 Sandostatin 3 weeks- Scheduled for 02/10 Labs, no clinician PET on 03/09 & RTC with Labs on 03/10 for C18 HPI: CASE HISTORY: Reverse Chronological Order 12/08/2024 - Neuroendocrine PET: Since 08/03/2024, PRIMARY DISEASE SITE: Unchanged SSTR2 expressing distant ilium lesion ANILA DISEASE: Unchanged SSTR2 expressing retroperitoneal and mesenteric lymphadenopathy. METASTATIC DISEASE: Unchanged SSTR2 expressing osseous, duodenum, left supraclavicular adenopathy and pelvic soft tissue metastases. Unchanged SSTR2 expressing diffuse pancreatic uptake. ADDITIONAL FINDINGS: Unchanged mild tracer uptake in left apical pulmonary nodule. 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 Normal duodenal bulb. A gastrojejunostomy was found, characterized by healthy appearing mucosa. The examined portion of the jejunum was normal. Erythematous mucosa in the gastric body. Z-line, 38 cm from the incisors. Normal esophagus. No specimens collected. No signs or stigmata of active or recent GI bleeding. Colonoscopy: Preparation of the colon was fair. The examined portion of the ileum was normal. Internal hemorrhoids. No specimens collected. No signs of stigmata of active or recent GI bleeding. Ileal mass not encountered. 10/31/2024-11/03/2024 - Admitted at [facility] with GI bleed 10/28/2024 - Palliative GJ bypass 10/28/2024 - CT CAP: Irregular left apical opacity. since there are no comparisons, clinical correlation and follow-up will be needed. Although it could be infectious or inflammatory, neoplasm is not excluded on the basis of this exam. Scarring and/or atelectasis. Fatty liver with suspected hemangiomas. Continued abdominal lymphadenopathy and stranding within the mesentery. There appears to be interval surgery and correlation with details of the procedure and findings is recommended. No bowel or urinary tract obstruction. Continued borderline thickening of the urinary bladder wall. 10/28/2024 - ER at [facility] for cough, black emesis, and black tarry stools 08/13/2024 - Increased Sandostatin to q 3 weeks 08/03/2024 - Neuroendocrine PET: PRIMARY DISEASE SITE: Slight increased size of distal ileum metabolically avid lesion with adjacent partially calcified implant representing biopsy-proven neuroendocrine tumor. ANILA DISEASE: Overall worsened abdominopelvic lymph node metastases with multiple new tracer avid nodes. Left supraclavicular tracer avid lymph nodes representing metastasis. METASTATIC DISEASE: Patchy, near complete tracer uptake throughout the pancreas. Scattered osseous metastases in the ribs and bony pelvis. ADDITIONAL FINDINGS: New left UVJ nonobstructing calculus. Krenning Score: 4 07/08/2024 - Chromogranin A: 213.9 06/03/2024 - PET/CT: HEAD/NECK: No evidence of FDG avid neoplastic process CHEST: Left apex nonhypermetabolic 1.7 cm nodule. Tissue sampling/follow-up imaging, the exclude a low metabolic rate neoplastic process, as clinically indicated - ACTIONABLE RESULT. No hypermetabolic/pathologic lymphadenopathy. ABDOMEN/PELVIS: Small area of increased uptake within the larger pancreatic body/uncinate findings described on the 05/13/[address] No focal abnormal uptake at the pancreas tail lesion. Correlation with pancreas MRI, tissue sampling, and/or Dotatate PET/CT, as clinically indicated. No hypermetabolic/pathologic lymphadenopathy. MUSCULOSKELETAL: 6.9 cm RIGHT gluteus carole presumed lipoma, mild uptake at the nodularity. Relation with [facility] MRI, as clinically indicated. 9.6 cm RIGHT gluteal subcutaneous presumed hematoma. Based on the clinical history, further evaluation may be performed. No hypermetabolic osseous lesion. 06/03/2024 - Chromogranin A: 137.7 05/13/2024 - CT Chest & Pancreas/Pelvis: Chest: 1.7 cm irregularly marginated nodular mass at the left apex is appreciated, concerning for metastases. No substantial intrathoracic adenopathy is appreciated. A few scattered small osseous sclerotic foci are appreciated as above. Given the patient's history, the possibility of osseous metastases is not excluded. P/P: There is an overall stable appearance to peripancreatic metastatic nodules/adenopathy Extensive mesenteric and retroperitoneal adenopathy, not substantially changed. Arterial enhancement/thickening involving a short segment of the distal ileum, more conspicuous in appearance from the prior examination, which may relate to the patient's known primary carcinoid tumor. Adjacent partially calcified right lower quadrant adenopathy, relatively stable in appearance. Trace perihepatic and perisplenic ascites, the possibility of a peritoneal implant at the dome of the right lobe of the liver, unchanged. Stable appearance to severe narrowing/occlusion of the superior mesenteric vein secondary to anila metastases, stable appearance to significant narrowing of the splenic vein Diffuse osseous metastases is again suspected 05/13/2024 - Chromogranin A: 170.5 04/21/2024 - Chromogranin A: 161.1 03/24/2024 - Chromogranin A: 169.7 02/24/2024 - Chromogranin A: 187.8 02/18/2024 - CT Pancreas/Pelvis: Redemonstrated findings of the known extensive metastatic neuroendocrine neoplasm, with slight improvement seen compared to September 2023. Decrease in the length of the focally thickened segment of ileum in the right lower quadrant, at the site of the known primary ileal neuroendocrine tumor. An adjacent partially calcified right lower quadrant lymph node metastasis has decreased as well. Slight decrease in size of extensive mesenteric lymph node metastatic disease and retroperitoneal lymph node metastatic disease, with measurements provided above. Stable appearing infiltrative appearing neoplasm in the left anterior pararenal space of the retroperitoneum, and similar appearing possible intraperitoneal capsular implant along the dome of the liver. Stable appearance of numerous small sclerotic foci, likely indicating stable skeletal metastatic disease. Stable appearance of severe narrowing/occlusion of the [...] the right lower quadrant, similar to previously. 01/28/2024 - Chromogranin A: 136.4 12/03/2023-06/17/2024 - Sandostatin LAR q 4 weeks 10/29/2023 - Laparotomy, gastrojejunostomy (Bilroth II reconstruction), takedown of gastrocutaneous fistula, and placement of distal feeding tube 10/29/2023-11/07/2023 - Admitted at [facility] - observation after surgery 10/01/2023 - CT Pancreas/Pelvis: Metastatic neuroendocrine tumor with grossly stable, multifocal measurable disease from recent priors as detailed. Sclerotic osseous foci suspected metastatic and grossly unchanged. Percutaneous gastrojejunostomy remains in place, with mild proximal duodenal dilation, similar to recent prior. No gross interval gastric outlet obstruction otherwise. Minimal residual ascites, intervally improved. 09/02/2023 - CT Pancreas/Pelvis: Widespread metastatic disease as described related to the patient's known neuroendocrine tumor. Small volume abdominal ascites new since 08/28/2023. Right lower lobe opacities more confluent since prior. 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 Pancreatic uncinate neuroendocrine neoplasm and low-attenuation hepatic lesions are better evaluated on prior contrast-enhanced CT. Development of patchy ground glass opacities right lower lobe, likely pneumonia/aspiration. Diffusely heterogeneous osseous mineralization which could be related to osteopenia or infiltrative metastatic disease (and could be further differentiated with Dotatate PET-CT). 08/28/2023 - CT Brain: No CT evidence of acute intracranial process 08/28/2023 - CXR: No evidence of active disease. 08/28/2023-09/05/2023 - Admitted at [facility] - Patient sent by surgery with failure to thrive, concern for dehydration. 08/17/2023 - ECHO: EF: 58 08/14/2023 - PEG-J tube had moved out of place, repositioned by GI 08/13/2023 - PEG-J tube placed 08/13/2023 - Fine needle aspirations: A. Pancreas, uncinate mass, biopsy: -Well-differentiated neuroendocrine tumor, at least WHO grade 1 (Ki67 <3%) in this specimen. -Tumor cells are strongly positive for CAM5.2, synaptophysin, INSM1, and chromogranin supporting the above interpretation. B. Lymph node, biopsy: -Predominantly hemorrhage admixed with some lymphoid tissue and smooth muscle. -No evidence of neoplasm in this material. 08/08/2024 - CT Pancreas/Pelvis: Hypoenhancing mass involving the uncinate process of the pancreas and retroperitoneal lymphadenopathy. Suspect neoplasm. Two indeterminate hepatic hypodensities. 08/07/2023-08/17/2023 - Admitted at [facility] - Nausea & Vomiting: Sent by GI for weight loss and unable to keep anything down since June. 07/25/2023 - EGD with biopsy: - Duodenal mass - [facility] - Dr. Linder 07/24/2023 - CT A/P: at [facility] A mass is noted in the region of the third portion of the duodenum with associated obstruction of the stomach and proximal duodenum. The mass is difficult to measure but measures approximately 3.4 x 3.4 cm in greatest axial dimensions. There appears to be adjacent bulky lymphadenopathy involving the mesentery extending inferiorly some of which appears partially calcified. There also appears yto be left periaortic lymphadenopathy. It is difficult to say with certainty whether this mass arises from the small bowel or pancreas. Given the partially calcified lymphadenopathy a carcinoid tumor is suspected. Findings have progressed since prior study. Mesenteric engorgement is seen. Given the size of the mass, portal vein/SMV thrombosis cannot be excluded. 07/10/2023 - Presented to PCP with abdominal pain onset 1 week prior Updated Visit, January 20, 2025: Aisha Julien returns for scheduled follow-up and Sandostatin. His last PET scan was on 12/08 with his treatment he states that ever since his color vision is off. He color white looks yellow. He had his normal eye exam which was normal. He has a history of cataract surgery in 2018. He has no problems with visual clarity. He has no problems reading. He does not wear glasses regularly or has contacts. He has occasional diarrhea. His stools are mushy . He denies any blood in his stool. No abdominal pain. No nausea or vomiting. He denies bleeding and abnormal bruising. He has mild exertional shortness of breath. No significant cough. No fevers, chills, night sweats or signs/symptoms of infection. He denies any bone pain. He is retired but remains active. Updated Visit, December 09, 2024: Aisha returns for a follow up. Yesterday's PET shows overall stable disease, will repeat in 13 weeks. Hgb has dropped to 7.5 today. He endorses about 3 days of diarrhea with visible blood. Will draw iron studies in about 1 week and determine his need for a transfusion. He also has new tachycardia upon standing. He is due for C14 Sandostatin today. Updated Visit, November 17, 2024: Aisha returns for a follow up. He was seen in the ER at [facility] for a cough, black emesis, and black tarry stools. He had a palliative GJ bypass on 10/28/2024. He was then admitted at [facility] for the GI bleed, scopes did not reveal active bleeding and no specimens were taken for biopsies. His PET is scheduled for 12/08/2024, will proceed C14 Sandostatin same day following scan. Will draw iron studies today, consider IV iron if needed. He is taking oral iron supplement per his PCP. Updated Visit, August 13, 2024: Aisha returns for a follow up. Recent PET shows a slight increase in size of the primary disease site and overall worsening disease in abdominopelvic metastases. His Chromogranin A has also increased from 05/2024-06/2024. He endorses new occasional abdominal pain. Will increase Sandostatin to q 3 weeks x 3 doses and then restage. Updated Visit, July 08, 2024: Aisha returns for a follow up. He endorses recent flu-like symptoms: nausea, vomiting, diarrhea, cold chills, hot flashes. He says he has recovered now. I recommended visiting the ER for recurrent/worsening symptoms. PET/CT shows 1.7cm left apex nodule was nonhypermetabolic and small area of increased uptake in the pancreatic body. I will order a Dotatate PET/CT. Updated Visit, June 03, 2024: Aisha returns today and PET/CT images reviewed - awaiting radiology interp. Sample images noted below. Unclear what is showing up in the left gluteal region. He has a rash on both buttocks that is erythematous and scaly. Recommended diaper rash ointment. Updated Visit, May 20, 2024: Aisha returns today, doing well overall. CT Chest shows 1.7cm irregularly marginated mass at the left apex that is concerning for metastases. He endorses chemical exposure due to work. He was never a cigarette smoker, does smoke the occasional cigar and has a prior history of marijuana in the 70s. I will order a PET/CT to monitor. He reports a collapsed left lung after a fall a while back - I do not believe that is related to what is seen on current imaging. Pancreas/pelvis CT is overall stable. He is due to continue Sandostatin today. Anemia is stable, iron studies were normal last month. He had a syncopal episode at work recently, subsequently fell. He reports feeling nauseous prior to syncope. He was found to be hypotensive. He needs a release now to return to work, which I will complete for him. He had similar symptoms prior to his original diagnosis last year. Updated Visit, March 24, 2024: Aisha returns today for a follow up. He is tolerating Sandostatin well. His recent scan shows response to treatment. Continue Sandostatin today and q 4 weeks. Will repeat scans in 7 weeks and draw tumor markers. Updated Visit, February 24, 2024: Patient returns for follow up. CTs show improvement. Sandostatin LAR is going well. He denies any symptoms remains. He is eating well and having good bowel movements. Denies any current flushing or pain. Updated Visit, January 28, 2024: Aisha returns today for a follow up. He is tolerating Sandostatin LAR well with no complaints. He is able to eat more without nausea or vomiting. He has also been able to return to work. Hgb has improved to 12.3. Repeat CT pancreas/pelvis in 3 weeks, consider PET based on results for questionable bone mets. Proceed Sandostatin today. Initial Visit, December 03, 2023: Aisha Julien presents today for a Hematology and Oncology evaluation. He is a 68 year old male who was found to have a small bowel neuroendocrine tumor with metastases in 06/2023. He had an open GJ bypass on 10/28. He would like to start systemic therapy (Sandostatin) here in [place]. Incidents of nausea after eating got more frequent over the past two years prior to diagnosis. He has a PICC line currently, PEG-J tube did not work well for him. He is not in pain now, a little sore on site of stitches. Prior History from Dr. 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 The patient is status post palliative GJ bypass on 10/29/2023, recovering well. Updated History: Aisha Julien is a 68 year old male who underwent an open GJ bypass on 10/29/2023 for duodenal obstruction from metastatic SB-NET. He is recovering well without complications. He is tolerating PO intake and has normal BM. No nausea or emesis. Has been on FLD since discharge. Remains active and able to carry out his daily activities. No wound complications. Treatment Plan: Advance to regular diet as tolerated Once regular diet is tolerated, would recommend removing the PICC line since no TPN or IV hydration will be needed. Referral to medical oncology to consider systemic therapy (Sandostatin) Return to surgery clinic as needed REVIEW OF SYSTEMS Per HPI and otherwise negative by full review of organ systems. ECOG PERFORMANCE STATUS: 1 PHYSICAL EXAMINATION: Vitals: BP 159/78 Pulse 73 Temp (Src) 97.4 (Temporal) Resp 16 Ht 5' 9.488 (1.77m) Wt 174 lb 2.6 oz (79.0kg) SpO2 99% BMI 25.36 kg/(m^2). Body surface area is 1.97 meters squared. Exam limited to gross visualization where appropriate. Gen.: This is an age-appropriate patient in no acute distress. Head: Appears atraumatic with no visible lesions. Eyes: Pupils equally round and reactive to light, extraocular muscles are intact. Neck: Supple. Respiratory: Appears to be respiring comfortably. Neurologic: Nonfocal to gross visualization. Alert and oriented 3. Psychiatric: No evidence of inappropriate anxiety or depression. Skin: Visible areas of skin without rash, lesions, wounds or petechiae. ALLERGIES: ALLERGIES No Known Allergies MEDICATIONS: ferrous sulfate (IRON) 325 mg (65 mg iron) tablet Take 30 mg by mouth once daily. losartan (COZAAR) 100 mg tablet Take 100 mg by mouth once daily. MULTIVITAMIN ORAL Take by mouth. LABORATORY VALUES: WBC (k/uL) Date Value 01/20/2025 3.55 (L) RBC (m/uL) Date Value 01/20/2025 3.64 (L) Hemoglobin (g/dL) Date Value 01/20/2025 10.7 (L) Hematocrit (%) Date Value 01/20/2025 33.8 (L) MCV (fL) Date Value 01/20/2025 92.9 MCH (pg) Date Value 01/20/2025 29.4 MCHC (g/dL) Date Value 01/20/2025 31.7 RDW-CV (%) Date Value 01/20/2025 16.8 (H) Platelet Count (k/uL) Date Value 01/20/2025 250 MPV (fL) Date Value 01/20/2025 9.8 Glucose (mg/dL) Date Value 01/20/2025 110 (H) BUN (mg/dL) Date Value 01/20/2025 12 Creatinine (mg/dL) Date Value 01/20/2025 0.91 Sodium (mmol/L) Date Value 01/20/2025 143 Potassium (mmol/L) Date Value 01/20/2025 4.6 Chloride (mmol/L) Date Value 01/20/2025 112 (H) CO2 (mmol/L) Date Value 01/20/2025 20 (L) Protein, Total (g/dL) Date Value 01/20/2025 6.3 Albumin (g/dL) Date Value 01/20/2025 4.0 Calcium, Total (mg/dL) Date Value 01/20/2025 9.0 Alkaline Phosphatase (U/L) Date Value 01/20/2025 173 (H) Bilirubin, Total (mg/dL) Date Value 01/20/2025 0.3 AST (U/L) Date Value 01/20/2025 28 ALT (U/L) Date Value 01/20/2025 15 Triglyceride (mg/dL) Date Value 09/02/2023 70 DIAGNOSIS: (C7B.8) 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) (primary encounter diagnosis) (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) PAST MEDICAL HISTORY Diagnosis Date Essential hypertension GERD (gastroesophageal reflux disease) PAST SURGICAL HISTORY Procedure Laterality Date ARTHROSCOPY KNEE DIAGNOSTIC W/WO SYNOVIAL BX SPX Bilateral states x3 COLONOSCOPY DIAGNOSTIC 2021 no polyps COLONOSCOPY SCREENING EGD DIAGNOSTIC 08/14/2023 EGD W/O BRSH SPEC VARICIES INJ PAST SURGICAL HISTORY OF 1965 tonsilectomy Social History Tobacco Use Smoking status: Never Smokeless tobacco: Never Vaping Use Vaping status: Former Substance Use Topics Alcohol use: Yes Comment: a few beers per day Drug use: Not Currently FAMILY HISTORY Problem Relation Age of Onset Uterine Cancer Mother other (bile duct cancer) Sister Colon Cancer No Family History I spent a total of 30 minutes on the date of the service which included preparing to see the patient, [id number] patient care, completing clinical documentation, obtaining and/or reviewing separately obtained history, performing a medically appropriate examination, counseling and educating the patient/family/caregiver, ordering medications, tests, or procedures, independently interpreting results (not separately reported), and communicating results to the patient/family/caregiver. Itzel Singh APRN.CATHEAD OPERATOR Hematology and Oncology Services Provided at: [place], [place] CC: Cleveland Alberts [address] [facility] [id number] Rene Cannon MD, MD [address] [facility] [id number] documented in this encounter [facility] 12-15-2024 Telephone encounter Note Patient is scheduled for 12-15-24 [facility] 12-15-2024 Miscellaneous Notes Patient is scheduled for 12-15-24 ----- Message from Jordyn Valerio sent at 12/13/2024 3:24 PM EDT ----- ----- Message from Nia Muniz RN sent at 12/13/2024 2:33 PM EDT ----- He is still iron deficient - will need more iron. Patient has been scheduled for Monoferric on 12/15 and notified. Looks like orders will still need to be placed? Thanks! Jordyn Valerio VM left with Nancy's message and IV iron recommendations. Encouraged to call to schedule Pharm: Please place orders Soraya/Hyacinth: Please call to schedule Nia Muniz RN documented in this encounter [facility] 12-13-2024 Telephone encounter Note ----- Message from Jordyn Valerio sent at 12/13/2024 3:24 PM EDT ----- ----- Message from Nia Muniz RN sent at 12/13/2024 2:33 PM EDT ----- He is still iron deficient - will need more iron. [facility] Work Phone: 12-13-2024 Telephone encounter Note Patient has been scheduled for Monoferric on 12/15 and notified. Looks like orders will still need to be placed? Thanks! Jordyn Valerio [facility] 12-13-2024 Telephone encounter Note VM left with Nancy's message and IV iron recommendations. Encouraged to call to schedule Pharm: Please place orders Soraya/Hyacinth: Please call to schedule Nia Muniz RN [facility] 12-09-2024 Instructions Reina Bridges - 12/09/2024 9:08 AM EDT C14 Sandostatin today Labs on 12/20 Triage to call results C15 in 3 weeks Labs, no clinician RTC in 6 weeks for C16 Labs same day documented in this encounter [facility] 12-09-2024 History of Present illness Narrative Images from the original note were not included. NAME: Alex Julieny CLINIC NO.: [id number] DATE OF SERVICE: December 09, 2024 (Raoul) Some elements in this clinic note that are critical to medical decision making have been carefully reviewed and included from a prior clinic note dated: November 17, 2024 (Raoul) Referring Provider: Dr. 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 The patient is status post palliative GJ bypass on 10/29/2023 and presents for systemic therapy with SSA (Sandostatin). CT scan in January 2024 with improvement in disease. Symptoms remain stable overall except for a recent episode (April 2024) of syncope that was preceded by nausea. I am unsure if this is related to active disease versus single episode. Additionally has a 1.7 cm irregularly marginated nodular mass in the left apical lung that I'd like to get a PET scan for to delineate better. - PET showed non-avidity of this lesion in June 2024. Dotatate PET November 2024 appears to show no evidence of progressive disease. PLAN: C14 Sandostatin today Labs on 12/20 Triage to call results C15 in 3 weeks Labs, no clinician RTC in 6 weeks for C16 Labs same day Anticipate C17 on 02/10 Labs, no clinician Anticipate PET on 03/09 & RTC with Labs on 03/10 for C18 HPI: CASE HISTORY: Reverse Chronological Order 12/08/2024 - Neuroendocrine PET: Since 08/03/2024, PRIMARY DISEASE SITE: Unchanged SSTR2 expressing distant ilium lesion ANILA DISEASE: Unchanged SSTR2 expressing retroperitoneal and mesenteric lymphadenopathy. METASTATIC DISEASE: Unchanged SSTR2 expressing osseous, duodenum, left supraclavicular adenopathy and pelvic soft tissue metastases. Unchanged SSTR2 expressing diffuse pancreatic uptake. ADDITIONAL FINDINGS: Unchanged mild tracer uptake in left apical pulmonary nodule. 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 Normal duodenal bulb. A gastrojejunostomy was found, characterized by healthy appearing mucosa. The examined portion of the jejunum was normal. Erythematous mucosa in the gastric body. Z-line, 38 cm from the incisors. Normal esophagus. No specimens collected. No signs or stigmata of active or recent GI bleeding. Colonoscopy: Preparation of the colon was fair. The examined portion of the ileum was normal. Internal hemorrhoids. No specimens collected. No signs of stigmata of active or recent GI bleeding. Ileal mass not encountered. 10/31/2024-11/03/2024 - Admitted at [facility] with GI bleed 10/28/2024 - Palliative GJ bypass 10/28/2024 - CT CAP: Irregular left apical opacity. since there are no comparisons, clinical correlation and follow-up will be needed. Although it could be infectious or inflammatory, neoplasm is not excluded on the basis of this exam. Scarring and/or atelectasis. Fatty liver with suspected hemangiomas. Continued abdominal lymphadenopathy and stranding within the mesentery. There appears to be interval surgery and correlation with details of the procedure and findings is recommended. No bowel or urinary tract obstruction. Continued borderline thickening of the urinary bladder wall. 10/28/2024 - ER at [facility] for cough, black emesis, and black tarry stools 08/13/2024 - Increased Sandostatin to q 3 weeks 08/03/2024 - Neuroendocrine PET: PRIMARY DISEASE SITE: Slight increased size of distal ileum metabolically avid lesion with adjacent partially calcified implant representing biopsy-proven neuroendocrine tumor. ANLIA DISEASE: Overall worsened abdominopelvic lymph node metastases with multiple new tracer avid nodes. Left supraclavicular tracer avid lymph nodes representing metastasis. METASTATIC DISEASE: Patchy, near complete tracer uptake throughout the pancreas. Scattered osseous metastases in the ribs and bony pelvis. ADDITIONAL FINDINGS: New left UVJ nonobstructing calculus. Krenning Score: 4 07/08/2024 - Chromogranin A: 213.9 06/03/2024 - PET/CT: HEAD/NECK: No evidence of FDG avid neoplastic process CHEST: Left apex nonhypermetabolic 1.7 cm nodule. Tissue sampling/follow-up imaging, the exclude a low metabolic rate neoplastic process, as clinically indicated - ACTIONABLE RESULT. No hypermetabolic/pathologic lymphadenopathy. ABDOMEN/PELVIS: Small area of increased uptake within the larger pancreatic body/uncinate findings described on the 05/13/[address] No focal abnormal uptake at the pancreas tail lesion. Correlation with pancreas MRI, tissue sampling, and/or Dotatate PET/CT, as clinically indicated. No hypermetabolic/pathologic lymphadenopathy. MUSCULOSKELETAL: 6.9 cm RIGHT gluteus carole presumed lipoma, mild uptake at the nodularity. Relation with [facility] MRI, as clinically indicated. 9.6 cm RIGHT gluteal subcutaneous presumed hematoma. Based on the clinical history, further evaluation may be performed. No hypermetabolic osseous lesion. 06/03/2024 - Chromogranin A: 137.7 05/13/2024 - CT Chest & Pancreas/Pelvis: Chest: 1.7 cm irregularly marginated nodular mass at the left apex is appreciated, concerning for metastases. No substantial intrathoracic adenopathy is appreciated. A few scattered small osseous sclerotic foci are appreciated as above. Given the patient's history, the possibility of osseous metastases is not excluded. P/P: There is an overall stable appearance to peripancreatic metastatic nodules/adenopathy Extensive mesenteric and retroperitoneal adenopathy, not substantially changed. Arterial enhancement/thickening involving a short segment of the distal ileum, more conspicuous in appearance from the prior examination, which may relate to the patient's known primary carcinoid tumor. Adjacent partially calcified right lower quadrant adenopathy, relatively stable in appearance. Trace perihepatic and perisplenic ascites, the possibility of a peritoneal implant at the dome of the right lobe of the liver, unchanged. Stable appearance to severe narrowing/occlusion of the superior mesenteric vein secondary to anila metastases, stable appearance to significant narrowing of the splenic vein Diffuse osseous metastases is again suspected 05/13/2024 - Chromogranin A: 170.5 04/21/2024 - Chromogranin A: 161.1 03/24/2024 - Chromogranin A: 169.7 02/24/2024 - Chromogranin A: 187.8 02/18/2024 - CT Pancreas/Pelvis: Redemonstrated findings of the known extensive metastatic neuroendocrine neoplasm, with slight improvement seen compared to September 2023. Decrease in the length of the focally thickened segment of ileum in the right lower quadrant, at the site of the known primary ileal neuroendocrine tumor. An adjacent partially calcified right lower quadrant lymph node metastasis has decreased as well. Slight decrease in size of extensive mesenteric lymph node metastatic disease and retroperitoneal lymph node metastatic disease, with measurements provided above. Stable appearing infiltrative appearing neoplasm in the left anterior pararenal space of the retroperitoneum, and similar appearing possible intraperitoneal capsular implant along the dome of the liver. Stable appearance of numerous small sclerotic foci, likely indicating stable skeletal metastatic disease. Stable appearance of severe narrowing/occlusion of the [...] the right lower quadrant, similar to previously. 01/28/2024 - Chromogranin A: 136.4 12/03/2023-06/17/2024 - Sandostatin LAR q 4 weeks 10/29/2023 - Laparotomy, gastrojejunostomy (Bilroth II reconstruction), takedown of gastrocutaneous fistula, and placement of distal feeding tube 10/29/2023-11/07/2023 - Admitted at [facility] - observation after surgery 10/01/2023 - CT Pancreas/Pelvis: Metastatic neuroendocrine tumor with grossly stable, multifocal measurable disease from recent priors as detailed. Sclerotic osseous foci suspected metastatic and grossly unchanged. Percutaneous gastrojejunostomy remains in place, with mild proximal duodenal dilation, similar to recent prior. No gross interval gastric outlet obstruction otherwise. Minimal residual ascites, intervally improved. 09/02/2023 - CT Pancreas/Pelvis: Widespread metastatic disease as described related to the patient's known neuroendocrine tumor. Small volume abdominal ascites new since 08/28/2023. Right lower lobe opacities more confluent since prior. 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 Pancreatic uncinate neuroendocrine neoplasm and low-attenuation hepatic lesions are better evaluated on prior contrast-enhanced CT. Development of patchy ground glass opacities right lower lobe, likely pneumonia/aspiration. Diffusely heterogeneous osseous mineralization which could be related to osteopenia or infiltrative metastatic disease (and could be further differentiated with Dotatate PET-CT). 08/28/2023 - CT Brain: No CT evidence of acute intracranial process 08/28/2023 - CXR: No evidence of active disease. 08/28/2023-09/05/2023 - Admitted at [facility] - Patient sent by surgery with failure to thrive, concern for dehydration. 08/17/2023 - ECHO: EF: 58 08/14/2023 - PEG-J tube had moved out of place, repositioned by GI 08/13/2023 - PEG-J tube placed 08/13/2023 - Fine needle aspirations: A. Pancreas, uncinate mass, biopsy: -Well-differentiated neuroendocrine tumor, at least WHO grade 1 (Ki67 <3%) in this specimen. -Tumor cells are strongly positive for CAM5.2, synaptophysin, INSM1, and chromogranin supporting the above interpretation. B. Lymph node, biopsy: -Predominantly hemorrhage admixed with some lymphoid tissue and smooth muscle. -No evidence of neoplasm in this material. 08/08/2024 - CT Pancreas/Pelvis: Hypoenhancing mass involving the uncinate process of the pancreas and retroperitoneal lymphadenopathy. Suspect neoplasm. Two indeterminate hepatic hypodensities. 08/07/2023-08/17/2023 - Admitted at [facility] - Nausea & Vomiting: Sent by GI for weight loss and unable to keep anything down since June. 07/25/2023 - EGD with biopsy: - Duodenal mass - [facility] - Dr. Linder 07/24/2023 - CT A/P: at [facility] A mass is noted in the region of the third portion of the duodenum with associated obstruction of the stomach and proximal duodenum. The mass is difficult to measure but measures approximately 3.4 x 3.4 cm in greatest axial dimensions. There appears to be adjacent bulky lymphadenopathy involving the mesentery extending inferiorly some of which appears partially calcified. There also appears yto be left periaortic lymphadenopathy. It is difficult to say with certainty whether this mass arises from the small bowel or pancreas. Given the partially calcified lymphadenopathy a carcinoid tumor is suspected. Findings have progressed since prior study. Mesenteric engorgement is seen. Given the size of the mass, portal vein/SMV thrombosis cannot be excluded. 07/10/2023 - Presented to PCP with abdominal pain onset 1 week prior Updated Visit, December 09, 2024: Aisha returns for a follow up. Yesterday's PET shows overall stable disease, will repeat in 13 weeks. Hgb has dropped to 7.5 today. He endorses about 3 days of diarrhea with visible blood. Will draw iron studies in about 1 week and determine his need for a transfusion. He also has new tachycardia upon standing. He is due for C14 Sandostatin today. Updated Visit, November 17, 2024: Aisha returns for a follow up. He was seen in the ER at [facility] for a cough, black emesis, and black tarry stools. He had a palliative GJ bypass on 10/28/2024. He was then admitted at [facility] for the GI bleed, scopes did not reveal active bleeding and no specimens were taken for biopsies. His PET is scheduled for 12/08/2024, will proceed C14 Sandostatin same day following scan. Will draw iron studies today, consider IV iron if needed. He is taking oral iron supplement per his PCP. Updated Visit, August 13, 2024: Aisha returns for a follow up. Recent PET shows a slight increase in size of the primary disease site and overall worsening disease in abdominopelvic metastases. His Chromogranin A has also increased from 05/2024-06/2024. He endorses new occasional abdominal pain. Will increase Sandostatin to q 3 weeks x 3 doses and then restage. Updated Visit, July 08, 2024: Aisha returns for a follow up. He endorses recent flu-like symptoms: nausea, vomiting, diarrhea, cold chills, hot flashes. He says he has recovered now. I recommended visiting the ER for recurrent/worsening symptoms. PET/CT shows 1.7cm left apex nodule was nonhypermetabolic and small area of increased uptake in the pancreatic body. I will order a Dotatate PET/CT. Updated Visit, June 03, 2024: Aisha returns today and PET/CT images reviewed - awaiting radiology interp. Sample images noted below. Unclear what is showing up in the left gluteal region. He has a rash on both buttocks that is erythematous and scaly. Recommended diaper rash ointment. Updated Visit, May 20, 2024: Aisha returns today, doing well overall. CT Chest shows 1.7cm irregularly marginated mass at the left apex that is concerning for metastases. He endorses chemical exposure due to work. He was never a cigarette smoker, does smoke the occasional cigar and has a prior history of marijuana in the 70s. I will order a PET/CT to monitor. He reports a collapsed left lung after a fall a while back - I do not believe that is related to what is seen on current imaging. Pancreas/pelvis CT is overall stable. He is due to continue Sandostatin today. Anemia is stable, iron studies were normal last month. He had a syncopal episode at work recently, subsequently fell. He reports feeling nauseous prior to syncope. He was found to be hypotensive. He needs a release now to return to work, which I will complete for him. He had similar symptoms prior to his original diagnosis last year. Updated Visit, March 24, 2024: Aisha returns today for a follow up. He is tolerating Sandostatin well. His recent scan shows response to treatment. Continue Sandostatin today and q 4 weeks. Will repeat scans in 7 weeks and draw tumor markers. Updated Visit, February 24, 2024: Patient returns for follow up. CTs show improvement. Sandostatin LAR is going well. He denies any symptoms remains. He is eating well and having good bowel movements. Denies any current flushing or pain. Updated Visit, January 28, 2024: Aisha returns today for a follow up. He is tolerating Sandostatin LAR well with no complaints. He is able to eat more without nausea or vomiting. He has also been able to return to work. Hgb has improved to 12.3. Repeat CT pancreas/pelvis in 3 weeks, consider PET based on results for questionable bone mets. Proceed Sandostatin today. Initial Visit, December 03, 2023: Aisha Julien presents today for a Hematology and Oncology evaluation. He is a 68 year old male who was found to have a small bowel neuroendocrine tumor with metastases in 06/2023. He had an open GJ bypass on 10/28. He would like to start systemic therapy (Sandostatin) here in [place]. Incidents of nausea after eating got more frequent over the past two years prior to diagnosis. He has a PICC line currently, PEG-J tube did not work well for him. He is not in pain now, a little sore on site of stitches. Prior History from Dr. 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 The patient is status post palliative GJ bypass on 10/29/2023, recovering well. Updated History: Aisha Julien is a 68 year old male who underwent an open GJ bypass on 10/29/2023 for duodenal obstruction from metastatic SB-NET. He is recovering well without complications. He is tolerating PO intake and has normal BM. No nausea or emesis. Has been on FLD since discharge. Remains active and able to carry out his daily activities. No wound complications. Treatment Plan: Advance to regular diet as tolerated Once regular diet is tolerated, would recommend removing the PICC line since no TPN or IV hydration will be needed. Referral to medical oncology to consider systemic therapy (Sandostatin) Return to surgery clinic as needed REVIEW OF SYSTEMS Per HPI and otherwise negative by full review of organ systems. ECOG PERFORMANCE STATUS: 1 PHYSICAL EXAMINATION: Vitals: BP 118/66 Pulse 92 Temp (Src) 97.2 (Temporal) Resp 16 Ht 5' 9.488 (1.77m) Wt 173 lb 11.6 oz (78.8kg) SpO2 100% BMI 25.30 kg/(m^2). Body surface area is 1.97 meters squared. Exam limited to gross visualization where appropriate. Gen.: This is an age-appropriate patient in no acute distress. Head: Appears atraumatic with no visible lesions. Eyes: Pupils equally round and reactive to light, extraocular muscles are intact. Neck: Supple. Respiratory: Appears to be respiring comfortably. Neurologic: Nonfocal to gross visualization. Alert and oriented 3. Psychiatric: No evidence of inappropriate anxiety or depression. Skin: Visible areas of skin without rash, lesions, wounds or petechiae. ALLERGIES: ALLERGIES No Known Allergies MEDICATIONS: ferrous sulfate (IRON) 325 mg (65 mg iron) tablet Take 30 mg by mouth once daily. losartan (COZAAR) 100 mg tablet Take 100 mg by mouth once daily. MULTIVITAMIN ORAL Take by mouth. LABORATORY VALUES: WBC (k/uL) Date Value 12/09/2024 4.62 RBC (m/uL) Date Value 12/09/2024 2.64 (L) Hemoglobin (g/dL) Date Value 12/09/2024 7.5 (L) Hematocrit (%) Date Value 12/09/2024 24.3 (L) MCV (fL) Date Value 12/09/2024 92.0 MCH (pg) Date Value 12/09/2024 28.4 MCHC (g/dL) Date Value 12/09/2024 30.9 RDW-CV (%) Date Value 12/09/2024 15.5 (H) Platelet Count (k/uL) Date Value 12/09/2024 243 MPV (fL) Date Value 12/09/2024 10.5 Glucose (mg/dL) Date Value 12/09/2024 120 (H) BUN (mg/dL) Date Value 12/09/2024 38 (H) Creatinine (mg/dL) Date Value 12/09/2024 1.53 (H) Sodium (mmol/L) Date Value 12/09/2024 140 Potassium (mmol/L) Date Value 12/09/2024 4.6 Chloride (mmol/L) Date Value 12/09/2024 111 (H) CO2 (mmol/L) Date Value 12/09/2024 18 (L) Protein, Total (g/dL) Date Value 12/09/2024 6.2 (L) Albumin (g/dL) Date Value 12/09/2024 4.0 Calcium, Total (mg/dL) Date Value 12/09/2024 8.5 Alkaline Phosphatase (U/L) Date Value 12/09/2024 126 (H) Bilirubin, Total (mg/dL) Date Value 12/09/2024 0.3 AST (U/L) Date Value 12/09/2024 19 ALT (U/L) Date Value 12/09/2024 10 Triglyceride (mg/dL) Date Value 09/02/2023 70 DIAGNOSIS: (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) (primary encounter diagnosis) Plan: NM PET/CT NEUROENDOCRINE WHOLE BODY IMAGING, CHROMOGRANIN A, GASTRIN BLD, VASOACTIVE INTESTINAL POLYPEPTIDE (VIP), PLASMA, SEROTONIN BLD, METANEPHRINES, FREE PLASMA, COMPLETE BLOOD COUNT AND DIFFERENTIAL, COMPREHENSIVE METABOLIC PANEL (C7B.8) 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) Plan: NM PET/CT NEUROENDOCRINE WHOLE BODY IMAGING (R91.8) Lung mass Plan: NM PET/CT NEUROENDOCRINE WHOLE BODY IMAGING (M89.9) Bone lesion Plan: NM PET/CT NEUROENDOCRINE WHOLE BODY IMAGING (D50.0) Iron deficiency anemia due to chronic blood loss Plan: COMPLETE BLOOD COUNT AND DIFFERENTIAL, COMPREHENSIVE METABOLIC PANEL, IRON AND TIBC, FERRITIN, VITAMIN B12, FOLATE, SERUM, COMPLETE BLOOD COUNT AND DIFFERENTIAL, COMPREHENSIVE METABOLIC PANEL PAST MEDICAL HISTORY Diagnosis Date Essential hypertension GERD (gastroesophageal reflux disease) PAST SURGICAL HISTORY Procedure Laterality Date ARTHROSCOPY KNEE DIAGNOSTIC W/WO SYNOVIAL BX SPX Bilateral states x3 COLONOSCOPY DIAGNOSTIC 2021 no polyps COLONOSCOPY SCREENING EGD DIAGNOSTIC 08/14/2023 EGD W/O BRSH SPEC VARICIES INJ PAST SURGICAL HISTORY OF 1965 tonsilectomy Social History Tobacco Use Smoking status: Never Smokeless tobacco: Never Vaping Use Vaping status: Former Substance Use Topics Alcohol use: Yes Comment: a few beers per day Drug use: Not Currently FAMILY HISTORY Problem Relation Age of Onset Uterine Cancer Mother other (bile duct cancer) Sister Colon Cancer No Family History I spent a total of 40 minutes on the date of service which included preparing to see the patient, [id number] patient care, completing clinical documentation, performing a medically appropriate examination, counseling and educating the patient/family/caregiver, ordering medications, tests, or procedures, independently interpreting results (not separately reported), communicating results to the patient/family/caregiver, and care coordination (not separately reported). Roselyn Leonard MD, CPE Hematology and Oncology Services Provided at: [facility], [place], [place] Scribe Attestation: This note was scribed by Reina Bridges on December 09, 2024 under the direction and supervision of Dr. Roselyn Leonard. I attest that all of the information documented is correct to the best of my knowledge. Provider Attestation: I, Roselyn Leonard MD, attest that all information documented by the above scribe is correct, and was supervised by me and under my direction. CC: Madair Genet [id number] [facility] [id number] Rene Cannon MD, MD [address] [facility] [id number] documented in this encounter [facility] 12-09-2024 Note [facility] 12-08-2024 History of Present illness Narrative RADIOLOGY SERVICE PROGRESS NOTE SERVICE DATE: 12/08/2024 SERVICE TIME: 8:00 AM PATIENT IDENTITY VERIFICATION COMPLETED USING TWO (2) STANDARD IDENTIFIERS: Name and Date of confirmed by patient verbally FALL SCREENING: Has the patient had 2 falls in the last year or 1 fall with injury or currently using an Ambulatory Assistive Device (Walker, Cane, Wheelchair, Crutches, etc.)? No PATIENT GENDER DATA: .male ALLERGIES: Reviewed and unchanged MEDICATIONS REVIEWED: No PATIENT RELEVANT IMPLANT DATA REVIEWED: Not Applicable PATIENT PRESENTS WITH AN IMPLANTABLE OR ATTACHED SALVAGE DETERMINER: No CREATININE: Creatinine Date Value Ref Range Status 11/17/2024 1.07 0.73 - 1.22 mg/dL Final 11/05/2024 1.40 (H) 0.73 - 1.22 mg/dL Final 11/03/2024 1.23 (H) 0.73 - 1.22 mg/dL Final Estimated Glomerular Filtration Rate Date Value Ref Range Status 11/17/2024 75 >=60 mL/min/1.73m Final Comment: Estimated Glomerular Filtration Rate (eGFR) [...] not accurately reflect actual GFR. P.O.C.T. RESULTS: N/A December 08, [address] PERFORMED: No IV SITE: Ambulatory: A peripheral IV was started in the Right hand with a Angio cath: 24 gauge. POST EXAM PIV STATUS: Discontinued PROCEDURE TYPE: NM INJECT: DOTATATE PET. 6.0 mCi [id number]. No other medications given.. ADMINISTRATION TIME: 757 PATIENT DISCHARGED TO: Ambulatory patient, left NM department area. Is this a therapy: No A Diagnostic radioactive procedure has taken place, with no further precautions necessary other than routine body substance precautions. More information regarding radiation safety can be found using this link: [email or web address] SIGNATURE: RT Keegan(R) PATIENT NAME: Aisha Julien DATE: December 08, 2024 TIME: 8:00 AM PAGER/CONTACT #: documented in this encounter [facility] 12-08-2024 Note [facility] 11-23-2024 History of Present illness Narrative Images from the original note were not included. Aisha Julien is a 69 y.o. male presents with chief complaint of Annual Exam HPI: I have reviewed and reconciled the history and medication list with the patient today. CURRENT PCP/CARE TEAM: Patient Care Team: Rene Cannon MD as PCP - General (Family Medicine) Roselyn Leonard MD as Referring Physician (Hematology and Oncology) Health Risk Assessment Form Do you need help eating, bathing, using the toilet, dressing, or getting around your home?: No Can you prepare your own meals?: Yes Can you do your own housework without help?: Yes Can you shop for groceries or clothes without help?: Yes Do you exercise for about 20 minutes 3 or more days a week?: No How confident are you that you can control and manage most of your health problems?: Very confident Can you mange your money, credit cards and accounts, pay bills and taxes?: Yes Vision Screening: Yes, 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 Hearing Screening: Not done Cognitive Screening Self Assessment: No concerns rasied by family members, friends, or caretakers Three Word Registration: Captain, Garden, Picture Clock Drawing: Normal Clock - 2 Three Word Recall: 2/3 words correct - 2 Total Score (0-5 Points): 4 HISTORIES: PAST MEDICAL HISTORY: Past Medical History: Diagnosis Date Arthritis Arthropathy, unspecified Benign prostatic hyperplasia without lower urinary tract symptoms Cataract Chickenpox Dehydration Intestial issue Hyperlipidemia (CMS/HCC) Hypertension (CMS/HCC) Psoriasis Severe protein-calorie malnutrition (CMS/HCC) 08/08/2023 SURGICAL HISTORY: Past Surgical History: Procedure Laterality Date CATARACT EXTRACTION Left 08/28/2017 [facility] CATARACT EXTRACTION Right 09/25/2017 Jo[facility]quin COLONOSCOPY 06/2021 [facility] COLONOSCOPY 10/2024 EGD 12/22/2021 Elpidio [facility] ESOPHAGOSCOPY / EGD 10/2024 IR CVC PICC 08/29/2023 IR CVC PICC WY THORACOSTOMY OPEN FLAP DRAINAGE EMPYEMA TONSILLECTOMY TOTAL KNEE ARTHROPLASTY x3 SOCIAL HISTORY: Social History Tobacco Use Smoking status: Never Smokeless tobacco: Never Substance Use Topics Alcohol use: Yes Alcohol/week: 56.0 standard drinks of alcohol Types: 56 Standard drinks or equivalent per week Comment: Caffeine intake : 1-2 cups perday Drug use: Not Currently Depression: Not at risk (11/17/2024) Received from [facility] PHQ-2 PHQ-2 score: 0 FAMILY HISTORY: Family History Problem Relation Name Age of Onset Dementia Mother Heart disease Mother Heart disease Father Other (lymph nodes) Sister No Known Problems Son No Known Problems Daughter Cancer Sibling MEDICATIONS: Current Outpatient Medications Medication Instructions finasteride (PROSCAR) 5 mg, Oral, Daily, Do not crush, chew, or split. losartan (COZAAR) 100 mg, Oral, Daily octreotide (SANDOSTATIN) 20 mg, See admin instructions ALLERGIES: No Known Allergies PHYSICAL EXAM: Visit Vitals BP 120/74 Pulse 76 Ht 5' 9.5 Wt 169 lb 4 oz SpO2 99% BMI 24.64 kg/m Smoking Status Never BSA 1.94 m BP Readings from Last 3 Encounters: 11/23/24 120/74 10/19/24 126/72 04/27/24 148/86 Wt Readings from Last 3 Encounters: 11/23/24 169 lb 4 oz 11/09/24 169 lb 04/27/24 169 lb ASCVD 10-Year Risk Score Current as of today 12.3% 0 to < 5%: Low Risk 5 to < 7.5%: Borderline Risk 7.5 to < 20%: Intermediate Risk 20 to 100%: High Risk Last Change: An Atherosclerotic Cardiovascular Disease (ASCVD) event is defined as myocardial infarction, CHD , or stroke. The ASCVD risk score (Michael SANDOVAL, et al., 2019, 2020 [employer]) returns the percentage likelihood of a first time ASCVD event. Age: 69 Legal Sex: Male Non- : No Smokes Tobacco: No Has Diabetes Excluding Gestational Diabetes: No Systolic BP: 126 HDL: 99 mg/dL Total cholesterol: 158 mg/dL Is BP Treated: Yes Physical Exam The patient is pleasant and in no acute distress The patient has good eye contact and clear speech No significant external hemorrhoids, normal tone , no masses palpable , no melena , no red blood Prostate: symmetrical, smooth, no nodules or masses, nontender, enlarged 1+. ASSESSMENT AND PLAN: 1. Welcome to Medicare preventive visit (Primary) The patient is here for their Annual Medicare Wellness visit. Demographics were updated. Self-assessment was completed and reviewed. Past medical, family, and social history were updated. The medication list updated and reviewed by the doctor. A list of other current medical providers is established and updated. Time was spent discussing health maintenance issues, ordering testing as appropriate, and a schedule was reviewed regarding recommended screening. We discussed safety issues and fall risk. Depression screening was completed and addressed as appropriate. Fall screening was completed and addressed. Cognitive function was assessed by direct observation, cognitive screening as indicated, and assessment of ability to perform ADL's. The BMI and discussed. Major risk factors for chronic disease including family history were discussed. An after visit summary is made available to the patient 2. Advance directive in chart No changes to advanced directives 3. Encounter for screening for other disorder Clinically insignificant depression screening 4. Screening for alcohol problem See discussion under alcoholism 5. Benign essential hypertension (CMS/HCC) Chronic problem, stable, to goal. Monitor longitudinally 6. Hypertensive ventricular hypertrophy without heart failure (CMS/HCC) Chronic problem, stable, to goal. Monitor longitudinally 7. Hypertensive nephropathy (CMS/HCC) Chronic problem, stable, to goal. Monitor longitudinally 8. Stage 3a chronic kidney disease (HCC) (CMS/HCC) Chronic problem, stable, to goal. Monitor longitudinally 9. Primary malignant neuroendocrine tumor of pancreas (CMS/HCC) Chronic problem, stable, to goal. Monitor longitudinally by Oncology 10. 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 Monitor longitudinally by oncology 11. Mixed hyperlipidemia (CMS/HCC) Chronic problem, stable, to goal. Monitor longitudinally 12. Alcoholism (CMS/HCC) Chronic problem, variably stable, to goal. Monitor longitudinally. Was back to drinking fairly regularly and seems now only on occasional social events drink a beer or 2 per the patient. 13. Cardiovascular event risk The patient has ASCVD risk factors, but does not currently have a cardiovascular disease diagnosis. A standardized, evidence-based ASCVD risk assessment, is generated during the office visit. Each section is reviewed individually with the patient and a discussion concerning any modifiable risk factors. This discussion lasted approximately 5-10 minutes documented in this encounter [facility] 11-17-2024 Instructions Reina Bridges - 11/17/2024 9:29 AM EDT Labs today Call results and schedule IV iron if indicated Obtain recent CT CAP images from [facility] Neuroendocrine PET on 12/08/2024 RTC same day after scan C14 Sandostatin same day following RTC - delayed for scan documented in this encounter [facility] 11-17-2024 History of Present illness Narrative Images from the original note were not included. NAME: Aisha Julien [facility] NO.: [id number] DATE OF SERVICE: November 17, 2024 (Raoul) Some elements in this clinic note that are critical to medical decision making have been carefully reviewed and included from a prior clinic note dated: August 13, 2024 (Raoul) Referring Provider: Dr. 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 The patient is status post palliative GJ bypass on 10/29/2023 and presents for systemic therapy with SSA (Sandostatin). CT scan in January 2024 with improvement in disease. Symptoms remain stable overall except for a recent episode (April 2024) of syncope that was preceded by nausea. I am unsure if this is related to active disease versus single episode. Additionally has a 1.7 cm irregularly marginated nodular mass in the left apical lung that I'd like to get a PET scan for to delineate better. - PET showed non-avidity of this lesion in June 2024. Will hold sandostatin LAR and obtain Dotatate PET to evaluate concern for pancreatic progression as well as low grade left apical lesion. 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 Normal duodenal bulb. A gastrojejunostomy was found, characterized by healthy appearing mucosa. The examined portion of the jejunum was normal. Erythematous mucosa in the gastric body. Z-line, 38 cm from the incisors. Normal esophagus. No specimens collected. No signs or stigmata of active or recent GI bleeding. Colonoscopy: Preparation of the colon was fair. The examined portion of the ileum was normal. Internal hemorrhoids. No specimens collected. No signs of stigmata of active or recent GI bleeding. Ileal mass not encountered. 10/31/2024-11/03/2024 - Admitted at [facility] with GI bleed 10/28/2024 - Palliative GJ bypass 10/28/2024 - CT CAP: Irregular left apical opacity. since there are no comparisons, clinical correlation and follow-up will be needed. Although it could be infectious or inflammatory, neoplasm is not excluded on the basis of this exam. Scarring and/or atelectasis. Fatty liver with suspected hemangiomas. Continued abdominal lymphadenopathy and stranding within the mesentery. There appears to be interval surgery and correlation with details of the procedure and findings is recommended. No bowel or urinary tract obstruction. Continued borderline thickening of the urinary bladder wall. 10/28/2024 - ER at [facility] for cough, black emesis, and black tarry stools 08/13/2024 - Increased Sandostatin to q 3 weeks 08/03/2024 - Neuroendocrine PET: PRIMARY DISEASE SITE: Slight increased size of distal ileum metabolically avid lesion with adjacent partially calcified implant representing biopsy-proven neuroendocrine tumor. ANILA DISEASE: Overall worsened abdominopelvic lymph node metastases with multiple new tracer avid nodes. Left supraclavicular tracer avid lymph nodes representing metastasis. METASTATIC DISEASE: Patchy, near complete tracer uptake throughout the pancreas. Scattered osseous metastases in the ribs and bony pelvis. ADDITIONAL FINDINGS: New left UVJ nonobstructing calculus. Krenning Score: 4 07/08/2024 - Chromogranin A: 213.9 06/03/2024 - PET/CT: HEAD/NECK: No evidence of FDG avid neoplastic process CHEST: Left apex nonhypermetabolic 1.7 cm nodule. Tissue sampling/follow-up imaging, the exclude a low metabolic rate neoplastic process, as clinically indicated - ACTIONABLE RESULT. No hypermetabolic/pathologic lymphadenopathy. ABDOMEN/PELVIS: Small area of increased uptake within the larger pancreatic body/uncinate findings described on the 05/13/[address] No focal abnormal uptake at the pancreas tail lesion. Correlation with pancreas MRI, tissue sampling, and/or Dotatate PET/CT, as clinically indicated. No hypermetabolic/pathologic lymphadenopathy. MUSCULOSKELETAL: 6.9 cm RIGHT gluteus carole presumed lipoma, mild uptake at the nodularity. Relation with MSK MRI, as clinically indicated. 9.6 cm RIGHT gluteal subcutaneous presumed hematoma. Based on the clinical history, further evaluation may be performed. No hypermetabolic osseous lesion. 06/03/2024 - Chromogranin A: 137.7 05/13/2024 - CT Chest & Pancreas/Pelvis: Chest: 1.7 cm irregularly marginated nodular mass at the left apex is appreciated, concerning for metastases. No substantial intrathoracic adenopathy is appreciated. A few scattered small osseous sclerotic foci are appreciated as above. Given the patient's history, the possibility of osseous metastases is not excluded. P/P: There is an overall stable appearance to peripancreatic metastatic nodules/adenopathy Extensive mesenteric and retroperitoneal adenopathy, not substantially changed. Arterial enhancement/thickening involving a short segment of the distal ileum, more conspicuous in appearance from the prior examination, which may relate to the patient's known primary carcinoid tumor. Adjacent partially calcified right lower quadrant adenopathy, relatively stable in appearance. Trace perihepatic and perisplenic ascites, the possibility of a peritoneal implant at the dome of the right lobe of the liver, unchanged. Stable appearance to severe narrowing/occlusion of the superior mesenteric vein secondary to anila metastases, stable appearance to significant narrowing of the splenic vein Diffuse osseous metastases is again suspected 05/13/2024 - Chromogranin A: 170.5 04/21/2024 - Chromogranin A: 161.1 03/24/2024 - Chromogranin A: 169.7 02/24/2024 - Chromogranin A: 187.8 02/18/2024 - CT Pancreas/Pelvis: Redemonstrated findings of the known extensive metastatic neuroendocrine neoplasm, with slight improvement seen compared to September 2023. Decrease in the length of the focally thickened segment of ileum in the right lower quadrant, at the site of the known primary ileal neuroendocrine tumor. An adjacent partially calcified right lower quadrant lymph node metastasis has decreased as well. Slight decrease in size of extensive mesenteric lymph node metastatic disease and retroperitoneal lymph node metastatic disease, with measurements provided above. Stable appearing infiltrative appearing neoplasm in the left anterior pararenal space of the retroperitoneum, and similar appearing possible intraperitoneal capsular implant along the dome of the liver. Stable appearance of numerous small sclerotic foci, likely indicating stable skeletal metastatic disease. Stable appearance of severe narrowing/occlusion of the [...] the right lower quadrant, similar to previously. 01/28/2024 - Chromogranin A: 136.4 12/03/2023-06/17/2024 - Sandostatin LAR q 4 weeks 10/29/2023 - Laparotomy, gastrojejunostomy (Bilroth II reconstruction), takedown of gastrocutaneous fistula, and placement of distal feeding tube 10/29/2023-11/07/2023 - Admitted at [facility] - observation after surgery 10/01/2023 - CT Pancreas/Pelvis: Metastatic neuroendocrine tumor with grossly stable, multifocal measurable disease from recent priors as detailed. Sclerotic osseous foci suspected metastatic and grossly unchanged. Percutaneous gastrojejunostomy remains in place, with mild proximal duodenal dilation, similar to recent prior. No gross interval gastric outlet obstruction otherwise. Minimal residual ascites, intervally improved. 09/02/2023 - CT Pancreas/Pelvis: Widespread metastatic disease as described related to the patient's known neuroendocrine tumor. Small volume abdominal ascites new since 08/28/2023. Right lower lobe opacities more confluent since prior. 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 Pancreatic uncinate neuroendocrine neoplasm and low-attenuation hepatic lesions are better evaluated on prior contrast-enhanced CT. Development of patchy ground glass opacities right lower lobe, likely pneumonia/aspiration. Diffusely heterogeneous osseous mineralization which could be related to osteopenia or infiltrative metastatic disease (and could be further differentiated with Dotatate PET-CT). 08/28/2023 - CT Brain: No CT evidence of acute intracranial process 08/28/2023 - CXR: No evidence of active disease. 08/28/2023-09/05/2023 - Admitted at [facility] - Patient sent by surgery with failure to thrive, concern for dehydration. 08/17/2023 - ECHO: EF: 58 08/14/2023 - PEG-J tube had moved out of place, repositioned by GI 08/13/2023 - PEG-J tube placed 08/13/2023 - Fine needle aspirations: A. Pancreas, uncinate mass, biopsy: -Well-differentiated neuroendocrine tumor, at least WHO grade 1 (Ki67 <3%) in this specimen. -Tumor cells are strongly positive for CAM5.2, synaptophysin, INSM1, and chromogranin supporting the above interpretation. B. Lymph node, biopsy: -Predominantly hemorrhage admixed with some lymphoid tissue and smooth muscle. -No evidence of neoplasm in this material. 08/08/2024 - CT Pancreas/Pelvis: Hypoenhancing mass involving the uncinate process of the pancreas and retroperitoneal lymphadenopathy. Suspect neoplasm. Two indeterminate hepatic hypodensities. 08/07/2023-08/17/2023 - Admitted at [facility] - Nausea & Vomiting: Sent by GI for weight loss and unable to keep anything down since June. 07/25/2023 - EGD with biopsy: - Duodenal mass - [facility] - Dr. Linder 07/24/2023 - CT A/P: at [facility] A mass is noted in the region of the third portion of the duodenum with associated obstruction of the stomach and proximal duodenum. The mass is difficult to measure but measures approximately 3.4 x 3.4 cm in greatest axial dimensions. There appears to be adjacent bulky lymphadenopathy involving the mesentery extending inferiorly some of which appears partially calcified. There also appears yto be left periaortic lymphadenopathy. It is difficult to say with certainty whether this mass arises from the small bowel or pancreas. Given the partially calcified lymphadenopathy a carcinoid tumor is suspected. Findings have progressed since prior study. Mesenteric engorgement is seen. Given the size of the mass, portal vein/SMV thrombosis cannot be excluded. 07/10/2023 - Presented to PCP with abdominal pain onset 1 week prior Updated Visit, November 17, 2024: Aisha returns for a follow up. He was seen in the ER at [facility] for a cough, black emesis, and black tarry stools. He had a palliative GJ bypass on 10/28/2024. He was then admitted at [facility] for the GI bleed, scopes did not reveal active bleeding and no specimens were taken for biopsies. His PET is scheduled for 12/08/2024, will proceed C14 Sandostatin same day following scan. Will draw iron studies today, consider IV iron if needed. He is taking oral iron supplement per his PCP. Updated Visit, August 13, 2024: Aisha returns for a follow up. Recent PET shows a slight increase in size of the primary disease site and overall worsening disease in abdominopelvic metastases. His Chromogranin A has also increased from 05/2024-06/2024. He endorses new occasional abdominal pain. Will increase Sandostatin to q 3 weeks x 3 doses and then restage. Updated Visit, July 08, 2024: Aisha returns for a follow up. He endorses recent flu-like symptoms: nausea, vomiting, diarrhea, cold chills, hot flashes. He says he has recovered now. I recommended visiting the ER for recurrent/worsening symptoms. PET/CT shows 1.7cm left apex nodule was nonhypermetabolic and small area of increased uptake in the pancreatic body. I will order a Dotatate PET/CT. Updated Visit, June 03, 2024: Aisha returns today and PET/CT images reviewed - awaiting radiology interp. Sample images noted below. Unclear what is showing up in the left gluteal region. He has a rash on both buttocks that is erythematous and scaly. Recommended diaper rash ointment. Updated Visit, May 20, 2024: Aisha returns today, doing well overall. CT Chest shows 1.7cm irregularly marginated mass at the left apex that is concerning for metastases. He endorses chemical exposure due to work. He was never a cigarette smoker, does smoke the occasional cigar and has a prior history of marijuana in the 70s. I will order a PET/CT to monitor. He reports a collapsed left lung after a fall a while back - I do not believe that is related to what is seen on current imaging. Pancreas/pelvis CT is overall stable. He is due to continue Sandostatin today. Anemia is stable, iron studies were normal last month. He had a syncopal episode at work recently, subsequently fell. He reports feeling nauseous prior to syncope. He was found to be hypotensive. He needs a release now to return to work, which I will complete for him. He had similar symptoms prior to his original diagnosis last year. Updated Visit, March 24, 2024: Aisha returns today for a follow up. He is tolerating Sandostatin well. His recent scan shows response to treatment. Continue Sandostatin today and q 4 weeks. Will repeat scans in 7 weeks and draw tumor markers. Updated Visit, February 24, 2024: Patient returns for follow up. CTs show improvement. Sandostatin LAR is going well. He denies any symptoms remains. He is eating well and having good bowel movements. Denies any current flushing or pain. Updated Visit, January 28, 2024: Aisha returns today for a follow up. He is tolerating Sandostatin LAR well with no complaints. He is able to eat more without nausea or vomiting. He has also been able to return to work. Hgb has improved to 12.3. Repeat CT pancreas/pelvis in 3 weeks, consider PET based on results for questionable bone mets. Proceed Sandostatin today. Initial Visit, December 03, 2023: Aisha Julien presents today for a Hematology and Oncology evaluation. He is a 68 year old male who was found to have a small bowel neuroendocrine tumor with metastases in 06/2023. He had an open GJ bypass on 10/28. He would like to start systemic therapy (Sandostatin) here in [place]. Incidents of nausea after eating got more frequent over the past two years prior to diagnosis. He has a PICC line currently, PEG-J tube did not work well for him. He is not in pain now, a little sore on site of stitches. Prior History from Dr. 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 The patient is status post palliative GJ bypass on 10/29/2023, recovering well. Updated History: Aisha Julien is a 68 year old male who underwent an open GJ bypass on 10/29/2023 for duodenal obstruction from metastatic SB-NET. He is recovering well without complications. He is tolerating PO intake and has normal BM. No nausea or emesis. Has been on FLD since discharge. Remains active and able to carry out his daily activities. No wound complications. Treatment Plan: Advance to regular diet as tolerated Once regular diet is tolerated, would recommend removing the PICC line since no TPN or IV hydration will be needed. Referral to medical oncology to consider systemic therapy (Sandostatin) Return to surgery clinic as needed REVIEW OF SYSTEMS Per HPI and otherwise negative by full review of organ systems. ECOG PERFORMANCE STATUS: 1 PHYSICAL EXAMINATION: Vitals: BP 162/79 Pulse 108 Temp (Src) 97 (Temporal) Resp 16 Ht 5' 9.488 (1.77m) Wt 173 lb 11.6 oz (78.8kg) SpO2 100% BMI 25.30 kg/(m^2). Body surface area is 1.97 meters squared. Exam limited to gross visualization where appropriate. Gen.: This is an age-appropriate patient in no acute distress. Head: Appears atraumatic with no visible lesions. Eyes: Pupils equally round and reactive to light, extraocular muscles are intact. Neck: Supple. Respiratory: Appears to be respiring comfortably. Neurologic: Nonfocal to gross visualization. Alert and oriented 3. Psychiatric: No evidence of inappropriate anxiety or depression. Skin: Visible areas of skin without rash, lesions, wounds or petechiae. ALLERGIES: ALLERGIES No Known Allergies MEDICATIONS: ferrous sulfate (IRON) 325 mg (65 mg iron) tablet Take 30 mg by mouth once daily. finasteride (PROSCAR) 5 mg tablet Take 1 tablet by mouth once daily. octreotide LAR (SANDOSTATIN LAR DEPOT) 20 mg Depot INJ Take to provider office for and inject 20mg IM every 3 weeks as directed losartan (COZAAR) 100 mg tablet Take 100 mg by mouth once daily. MULTIVITAMIN ORAL Take by mouth. LABORATORY VALUES: WBC (k/uL) Date Value 11/17/2024 5.06 RBC (m/uL) Date Value 11/17/2024 3.56 (L) Hemoglobin (g/dL) Date Value 11/17/2024 10.2 (L) Hematocrit (%) Date Value 11/17/2024 32.6 (L) MCV (fL) Date Value 11/17/2024 91.6 MCH (pg) Date Value 11/17/2024 28.7 MCHC (g/dL) Date Value 11/17/2024 31.3 RDW-CV (%) Date Value 11/17/2024 14.4 Platelet Count (k/uL) Date Value 11/17/2024 287 MPV (fL) Date Value 11/17/2024 10.1 Glucose (mg/dL) Date Value 11/17/2024 98 BUN (mg/dL) Date Value 11/17/2024 25 (H) Creatinine (mg/dL) Date Value 11/17/2024 1.07 Sodium (mmol/L) Date Value 11/17/2024 143 Potassium (mmol/L) Date Value 11/17/2024 4.4 Chloride (mmol/L) Date Value 11/17/2024 111 (H) CO2 (mmol/L) Date Value 11/17/2024 17 (L) Protein, Total (g/dL) Date Value 11/17/2024 7.1 Albumin (g/dL) Date Value 11/17/2024 4.3 Calcium, Total (mg/dL) Date Value 11/17/2024 8.9 Alkaline Phosphatase (U/L) Date Value 11/17/2024 176 (H) Bilirubin, Total (mg/dL) Date Value 11/17/2024 0.5 AST (U/L) Date Value 11/17/2024 26 ALT (U/L) Date Value 11/17/2024 15 Triglyceride (mg/dL) Date Value 09/02/2023 70 DIAGNOSIS: (D64.9) Anemia, unspecified type (primary encounter diagnosis) Plan: COMPLETE BLOOD COUNT AND DIFFERENTIAL, COMPREHENSIVE METABOLIC PANEL, IRON AND TIBC, FERRITIN, VITAMIN B12, FOLATE, SERUM, RETICULOCYTE COUNT, COMPLETE BLOOD COUNT AND DIFFERENTIAL, COMPREHENSIVE METABOLIC PANEL, IRON AND TIBC, FERRITIN, VITAMIN B12, FOLATE, SERUM, RETICULOCYTE COUNT, COMPLETE BLOOD COUNT AND DIFFERENTIAL, COMPREHENSIVE METABOLIC PANEL, IRON AND TIBC, FERRITIN, VITAMIN B12, FOLATE, SERUM (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) Plan: COMPLETE BLOOD COUNT AND DIFFERENTIAL, COMPREHENSIVE METABOLIC PANEL, IRON AND TIBC, FERRITIN, VITAMIN B12, FOLATE, SERUM, RETICULOCYTE COUNT, COMPLETE BLOOD COUNT AND DIFFERENTIAL, COMPREHENSIVE METABOLIC PANEL, IRON AND TIBC, FERRITIN, VITAMIN B12, FOLATE, SERUM, RETICULOCYTE COUNT (C7B.8) 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) Plan: COMPLETE BLOOD COUNT AND DIFFERENTIAL, COMPREHENSIVE METABOLIC PANEL, IRON AND TIBC, FERRITIN, VITAMIN B12, FOLATE, SERUM, RETICULOCYTE COUNT, COMPLETE BLOOD COUNT AND DIFFERENTIAL, COMPREHENSIVE METABOLIC PANEL, IRON AND TIBC, FERRITIN, VITAMIN B12, FOLATE, SERUM, RETICULOCYTE COUNT PAST MEDICAL HISTORY Diagnosis Date Essential hypertension GERD (gastroesophageal reflux disease) PAST SURGICAL HISTORY Procedure Laterality Date ARTHROSCOPY KNEE DIAGNOSTIC W/WO SYNOVIAL BX SPX Bilateral states x3 COLONOSCOPY DIAGNOSTIC 2021 no polyps COLONOSCOPY SCREENING EGD DIAGNOSTIC 08/14/2023 EGD W/O BRSH SPEC VARICIES INJ PAST SURGICAL HISTORY OF 1965 tonsilectomy Social History Tobacco Use Smoking status: Never Smokeless tobacco: Never Vaping Use Vaping status: Former Substance Use Topics Alcohol use: Yes Comment: a few beers per day Drug use: Not Currently FAMILY HISTORY Problem Relation Age of Onset Uterine Cancer Mother other (bile duct cancer) Sister Colon Cancer No Family History I spent a total of 30 minutes on the date of service which included preparing to see the patient, [id number] patient care, completing clinical documentation, performing a medically appropriate examination, counseling and educating the patient/family/caregiver, ordering medications, tests, or procedures, independently interpreting results (not separately reported), communicating results to the patient/family/caregiver, and care coordination (not separately reported). Roselyn Leonard MD, CPE Hematology and Oncology Services Provided at: [place], [place] Scribe Attestation: This note was scribed by Reina Bridges on November 17, 2024 under the direction and supervision of Dr. Roselyn Leonard. I attest that all of the information documented is correct to the best of my knowledge. Provider Attestation: I, Roselyn Leonard MD, attest that all information documented by the above scribe is correct, and was supervised by me and under my direction. CC: Cleveland Alberts [id number] [facility] [id number] Rene Cannon MD, MD [address] [facility] [id number] documented in this encounter [facility] 11-17-2024 Note [facility] 11-08-2024 Telephone encounter Note Patient returned call and is scheduled for Friday11/17/24. MARIZOL Morales [facility] 11-08-2024 Miscellaneous Notes Patient returned call and is scheduled for Friday11/17/24. MARIZOL Morales 3rd attempt-Lvm for patient to call back to schedule a hospital follow up with NANCY in 1-2 weeks. MARIZOL Madden 2nd attempt-Lvm for patient to call back to schedule a hospital follow up with NANCY in 1-2 weeks. MARIZOL Madden Patient called and said any appointments he needs can be made when he is in the office tomorrow 11/05/24 MARIZOL Morales Lvm for patient to call back to schedule a hospital follow up with NANCY in 1-2 weeks. MARIZOL Madden Please see below. Can someone please assist in scheduling a follow up visit with Dr Leonard? He is an established patient. Thank you! Follow up appointment: Hematology/Oncology Schedule follow up appointment within 1-2 wk Location of Cancer Patient eligible for virtual visit? Schedule with Testing Ordered Follow Up Reason: Hospital follow up documented in this encounter [facility] 11-08-2024 Telephone encounter Note 3rd attempt-Lvm for patient to call back to schedule a hospital follow up with NANCY in 1-2 weeks. MARIZOL Madden [facility] 11-05-2024 Telephone encounter Note 2nd attempt-Lvm for patient to call back to schedule a hospital follow up with NANCY in 1-2 weeks. MARIZOL Madden [facility] 11-04-2024 Telephone encounter Note Patient called and said any appointments he needs can be made when he is in the office tomorrow 11/05/24 Adela Estrella PSS [facility] 11-04-2024 Telephone encounter Note Patient called and said any appointments he needs can be made when he is in the office tomorrow 11/05/24 Adela Estrella PSS [facility] 11-04-2024 Miscellaneous Notes Patient called and said any appointments he needs can be made when he is in the office tomorrow 11/05/24 Adela Estrella PSS Triage encounter sent 11/01/24. Patient needs to be scheduled on December 02 for PET I have Mr. Julien flagged for his Pet scan for November. We have to send a phone encounter to triage this for approval. He is on my schedule to send encounter on Friday. I reached out to Mr. Julien today regarding his upcoming Sandostatin injection and he notified me he retired 10/22/24. He now has [employer] insurance: [employer] ID [id number] plan# [id number] customer service [phone] He also stated he thinks he should be scheduled for a PET scan at least 3 weeks after his next injection (11/05) however, he does not currently have an appointment for a PET. Please advise. Thank you, Rosaline Jon RPh documented in this encounter [facility] 11-04-2024 Telephone encounter Note Lvm for patient to call back to schedule a hospital follow up with NANCY in 1-2 weeks. MARIZOL Madden [facility] 11-03-2024 Telephone encounter Note Please see below. Can someone please assist in scheduling a follow up visit with Dr Leonard? He is an established patient. Thank you! [facility] 11-03-2024 Telephone encounter Note Follow up appointment: Hematology/Oncology Schedule follow up appointment within 1-2 wk Location of Cancer Patient eligible for virtual visit? Schedule with Testing Ordered Follow Up Reason: Hospital follow up [facility] 11-03-2024 Note HNO ID: [id number] Author: RAUL PATE RN Service: Care Management Author Type: Registered Nurse Type: Care Mgt Progress Note Filed: 11/03/2024 12:46 Note Text: CARE MANAGEMENT DISCHARGE NOTE SERVICE DATE: November 03, 2024 SERVICE TIME: 12:45 PM Admission Date: 10/31/2024 LOS: 3 days Discharge Arrangement Discharge Arrangement: Home with Relative Services Arranged Medical Services: (None) Caregiver Assessment Caregiver is ready, willing and able to meet the patient's needs as recommended by the inter-professional team: No Caregiver needed Transportation Arrangements Transportation Arrangements: Car Handoff Communication: Handoff to: Primary Care Physician Primary Care Physician Name/Phone: Rene Cannon MD Additional Information: Patient medically cleared for discharge today. Patient discharged to home. Patient is IPTA and has no skilled needs. Patient has supportive family nearby. Family to transport. SIGNATURE: Raul Pate RN PATIENT NAME: Aisha Julien DATE: November 03, 2024 TIME: 12:45 PM [facility] 11-02-2024 Note HNO ID: [id number] Author: LEW ARITA MD Service: General Internal Medicine Author Type: Physician Type: Progress Notes Filed: 11/02/2024 20:06 Note Text: Internal Medicine Progress Note Patient Name: Aisha Julien Today's Date: November 02, 2024 Attending: Lew Arita MD Subjective: Patient was seen and examined at bedside. Review Of Systems: GENERAL: No malaise or fevers. CARDIOVASCULAR: Negative for chest pain, leg swelling RESPIRATORY: Negative for shortness of breath GI: No nausea, vomiting, or diarrhea MUSCULOSKELETAL: Negative for joint pain or swelling Objective: 11/02/24 0800 11/02/24 1117 11/02/24 1549 11/02/24 1924 BP: 115/61 133/57 128/61 118/55 Pulse: (!) 58 79 61 67 Resp: 18 18 15 16 Temp: 36.5 ?C (97.7 ?F) 36.5 ?C (97.7 ?F) 36.7 ?C (98.1 ?F) 36.5 ?C (97.7 ?F) TempSrc: Oral Oral Oral Oral SpO2: 100% 97% 98% 100% Weight: Height: Physical Exam: General appearance: Well-appearing alert, in no acute distress Lungs: Clear to auscultation, no wheezing or rhonchi Heart: RRR without murmur, gallop, or rubs Abdomen: Soft, non-tender. Bowel sounds normal. Extremities: No deformity, no edema Neuro: Alert oriented x3, no focal deficit. Labs: WBC (k/uL) Date Value 11/02/2024 4.77 RBC (m/uL) Date Value 11/02/2024 2.54 (L) Hemoglobin (g/dL) Date Value 11/02/2024 7.4 (L) Hematocrit (%) Date Value 11/02/2024 24.0 (L) MCV (fL) Date Value 11/02/2024 94.5 MCH (pg) Date Value 11/02/2024 29.1 MCHC (g/dL) Date Value 11/02/2024 30.8 RDW-CV (%) Date Value 11/02/2024 16.0 (H) Platelet Count (k/uL) Date Value 11/02/2024 192 MPV (fL) Date Value 11/02/2024 11.4 Glucose (mg/dL) Date Value 11/02/2024 92 BUN (mg/dL) Date Value 11/02/2024 11 Creatinine (mg/dL) Date Value 11/02/2024 1.24 (H) Sodium (mmol/L) Date Value 11/02/2024 141 Potassium (mmol/L) Date Value 11/02/2024 3.9 Chloride (mmol/L) Date Value 11/02/2024 108 (H) CO2 (mmol/L) Date Value 11/02/2024 23 Protein, Total (g/dL) Date Value 10/31/2024 5.5 (L) Albumin (g/dL) Date Value 10/31/2024 3.2 (L) Calcium, Total (mg/dL) Date Value 11/02/2024 7.7 (L) Alkaline Phosphatase (U/L) Date Value 10/31/2024 95 Bilirubin, Total (mg/dL) Date Value 10/31/2024 0.4 AST (U/L) Date Value 10/31/2024 27 ALT (U/L) Date Value 10/31/2024 16 Triglyceride (mg/dL) Date Value 09/02/2023 70 Medications: Current Facility-Administered Medications Medication Dose Route Frequency finasteride 5 mg tab(s) (PROSCAR) 5 mg ORAL DAILY pantoprazole 40 mg injection (PROTONIX) 40 mg INTRAVENOUS BID AC (0600/1600) NaCl 0.9% iv flush bag 20 mL INTRAVENOUS PRN ondansetron 4 mg tab(s) (ZOFRAN) 4 mg ORAL q 6 H PRN Or ondansetron (PF) 4 mg injection (ZOFRAN) 4 mg INTRAVENOUS q 6 H PRN acetaminophen 650 mg tab(s) (TYLENOL) 650 mg ORAL q 6 H PRN ferric gluconate 125 mg in NaCl 0.9% 100 mL (FERRLECIT) 125 mg INTRAVENOUS DAILY AT 6 PM melatonin 6 mg tab(s) 6 mg ORAL AT BEDTIME aluminum-magnesium hydroxide-simethicone 200-200-20 mg/5 mL 30 mL 30 mL ORAL q 6 H PRN senna-docusate 8.6-50 mg 1 tablet (SENNA-S) 1 tablet ORAL BID PRN polyethylene glycol 3350 17 g packet 17 g ORAL DAILY PRN Assessment/Plan: *GI bleed (10/31/2024) Anemia (10/31/2024) Hematemesis with nausea (10/31/2024) Melena (10/31/2024) Hemoglobin stable S/P EGD and colonoscopy Continue monitoring Continue current medications GI is following HTN (hypertension) (08/08/2023) Monitor vital signs Neuroendocrine tumor (10/31/2024) Oncology is following Discussed with patient, RN Lew Arita MD Date: 11/02/24 Time: 7:28 PM This note was partially created using voice recognition software and is inherently subject to errors including those of syntax and sound-alike substitutions which may escape proofreading. In such instances, original meaning may be extrapolated by contextual derivation [facility] 11-02-2024 Note HNO ID: [id number] Author: RIVERA PIPER PA-C Service: General Internal Medicine Author Type: Physician Banquet Coordinator Type: Plan of Care Filed: 11/02/2024 15:26 Note Text: Pt seen today at bedside. Overall feeling well. Denies chest pain, dyspnea, headache, blurred vision, n/v/d. Hb is stable at 7.4. 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 - Normal duodenal bulb. - A gastrojejunostomy was found, characterized by healthy appearing mucosa. - The examined portion of the jejunum was normal. - Erythematous mucosa in the gastric body. - Z-line, 38 cm from the incisors. - Normal esophagus. - No specimens collected. - No signs or stigmata of active or recent GI bleeding. Recommendation: - Return patient to hospital [facility] for ongoing care. - Resume previous diet. - Continue present medications. - The patient is not currently taking anticoagulant or antiplatelet agents. Colonoscopy 11/01/24 Impression: - Preparation of the colon was [...] prognosis because the bowel preparation was suboptimal. Recommend outpatient f/u with [facility] for possible hemorrhoid ligation. GI will sign off. Waiting on heme/onc final recommendations prior to discharge Rivera Piper PA-C 11/02/2024 3:26 PM [facility] 11-02-2024 Note HNO ID: [id number] Author: RAUL PATE, RN Service: Care Management Author Type: Registered Nurse Type: Care Mgt Initial Assessment Filed: 11/02/2024 11:33 Note Text: CARE MANAGEMENT: ASSESSMENT AND DISCHARGE PLAN SERVICE DATE: November 02, 2024 SERVICE TIME: 11:00 AM PCP: Rene Cannon MD, MD Primary Contact: Extended Emergency Contact Information Primary Emergency Contact: WilyKatiuska Address: [address] [place] [address] Mobile Relation: Spouse Admission Status: Inpatient Insurance Provider: BLUE CARD PPO OOS Discharge Planning requested by: Per Department Practice Potential Transition Plans Home, No Services Indicated Advance Directives Current Advance Directive: Health Care Power of Nuclear Equipment Sales Engineer In Chart: No Motorman/Woman Attempted to Assist with AD Completion: Yes Action: Education Provided : No HCPOA paperwok on file within [employer] and verified to be current as of date/time of this note Legal Next of Kin Hierarchy per [place] Revised Code: Legal Spouse -Katiuska Julien [phone] Majority of Adult Children (consensus if possible) 3 children: Iglesia Veronica [phone] Raul Pate RN November 02, 2024 Current Living Arrangements and Support Lives with: Spouse/significant other, Children (and sonIglesia) Type of Residence: Private Residence (House) Does the patient have to climb stairs at home?: Yes, stairs outside the home (Ranch style) Support: Children, Spouse/significant other, Family members, Friends/neighbors How do you manage to accomplish the following: Independent: Ambulation, Transportation to appointments/community, Bathe/Shower, Dress, Meals/Meal Prep, Going to the bathroom, Medication Management Current Services/Equipment Current Post-Acute Service(s): None Discharge Planning Patient Goal(s): Be able to go home, General wellness Odum of Choice Explained: Odum of Choice Given: No Reason Not Given: No placements necessary Are you interested in bedside delivery of your medications? No Discharge Planning Participant(s): Patient Patient/Family Comments: Caregiver Assessment: Caregiver is ready, willing and able to meet the patient's needs as recommended by the inter-professional team: No Caregiver needed and ALCOHOL USE/ABUSE CAGE ASSESSMENT Two or More Affirmative Responses Suggest a Client is a Problem Drinker. - Have you felt the need to cut down on your drinking? No - Do you feel annoyed by people complaining about your drinking? No - Do you ever feel guilty about your drinking? No - Do you ever drink an eye-upholstery auto trimmer in the morning to relieve shakes? No Transport at Discharge: Transportation Arrangements: Car Needs Prior to Discharge: Needs Prior to Discharge: None Post-Acute Discharge Plan: Home with family. Admitted 10/31 for GI bleed. 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 Underwent EGD/Colonoscopy yesterday. CM met with patient at bedside for initial assessment. CM introduced self and CM role. Patient was A/O x3, engaged, and pleasant. Patient reported that he lives independently at home with and adult son, Iglesia. Patient just retired a week ago. Drives. Manages own meds. 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 No DME or active HH or SS. Denied any financial issues. Denied any drug use, but drinks 6-8 beers per day. Does not feel that alcohol use is a problem. Active with every 3 week Sandostatin injections at [facility]. Per team, Hgb is stable and possible discharge today pending Hem/Onc final recommendation. No skilled or rehab needs. to transport. OK to discharge from CM standpoint. SIGNATURE: Raul Pate RN PATIENT NAME: Aisha Julien DATE: November 02, 2024 TIME: 11:25 AM [facility] 11-01-2024 Note HNO ID: [id number] Author: LEW ARITA MD Service: General Internal Medicine Author Type: Physician Type: Progress Notes Filed: 11/01/2024 20:20 Note Text: Internal Medicine Progress Note Patient Name: Aisha Julien Today's Date: November 01, 2024 Attending: Lew Arita MD Subjective: Patient was seen and examined at bedside, patient underwent EGD and colonoscopy today, no acute pathology was identified, patient had hemorrhoids. Review Of Systems: GENERAL: No malaise or fevers. CARDIOVASCULAR: Negative for chest pain, leg swelling RESPIRATORY: Negative for shortness of breath GI: No nausea, vomiting, or diarrhea MUSCULOSKELETAL: Negative for joint pain or swelling Objective: 11/01/24 1530 11/01/24 1536 11/01/24 1608 11/01/24 1921 BP: 117/51 138/66 126/55 Pulse: 67 67 65 67 Resp: 13 24 16 16 Temp: 36.5 ?C (97.7 ?F) 36.4 ?C (97.5 ?F) 36.6 ?C (97.9 ?F) TempSrc: Temporal Oral Oral SpO2: 98% 98% 100% 98% Weight: Height: Physical Exam: General appearance: Well-appearing alert, in no acute distress Lungs: Clear to auscultation, no wheezing or rhonchi Heart: RRR without murmur, gallop, or rubs. No ectopy Abdomen: Soft, non-tender. Bowel sounds normal. Extremities: No deformity, no edema Neuro: Alert oriented x3, no focal deficit. Labs: WBC (k/uL) Date Value 11/01/2024 4.49 RBC (m/uL) Date Value 11/01/2024 2.40 (L) Hemoglobin (g/dL) Date Value 11/01/2024 7.3 (L) Hematocrit (%) Date Value 11/01/2024 22.2 (L) MCV (fL) Date Value 11/01/2024 92.5 MCH (pg) Date Value 11/01/2024 30.4 MCHC (g/dL) Date Value 11/01/2024 32.9 RDW-CV (%) Date Value 11/01/2024 16.8 (H) Platelet Count (k/uL) Date Value 11/01/2024 172 MPV (fL) Date Value 11/01/2024 11.0 Glucose (mg/dL) Date Value 11/01/2024 104 (H) BUN (mg/dL) Date Value 11/01/2024 14 Creatinine (mg/dL) Date Value 11/01/2024 1.11 Sodium (mmol/L) Date Value 11/01/2024 142 Potassium (mmol/L) Date Value 11/01/2024 3.4 (L) Chloride (mmol/L) Date Value 11/01/2024 109 (H) CO2 (mmol/L) Date Value 11/01/2024 23 Protein, Total (g/dL) Date Value 10/31/2024 5.5 (L) Albumin (g/dL) Date Value 10/31/2024 3.2 (L) Calcium, Total (mg/dL) Date Value 11/01/2024 7.6 (L) Alkaline Phosphatase (U/L) Date Value 10/31/2024 95 Bilirubin, Total (mg/dL) Date Value 10/31/2024 0.4 AST (U/L) Date Value 10/31/2024 27 ALT (U/L) Date Value 10/31/2024 16 Triglyceride (mg/dL) Date Value 09/02/2023 70 Medications: Current Facility-Administered Medications Medication Dose Route Frequency finasteride 5 mg tab(s) (PROSCAR) 5 mg ORAL DAILY pantoprazole 40 mg injection (PROTONIX) 40 mg INTRAVENOUS BID AC (0600/1600) NaCl 0.9% iv flush bag 20 mL INTRAVENOUS PRN ondansetron 4 mg tab(s) (ZOFRAN) 4 mg ORAL q 6 H PRN Or ondansetron (PF) 4 mg injection (ZOFRAN) 4 mg INTRAVENOUS q 6 H PRN acetaminophen 650 mg tab(s) (TYLENOL) 650 mg ORAL q 6 H PRN ferric gluconate 125 mg in NaCl 0.9% 100 mL (FERRLECIT) 125 mg INTRAVENOUS DAILY AT 6 PM melatonin 6 mg tab(s) 6 mg ORAL AT BEDTIME aluminum-magnesium hydroxide-simethicone 200-200-20 mg/5 mL 30 mL 30 mL ORAL q 6 H PRN senna-docusate 8.6-50 mg 1 tablet (SENNA-S) 1 tablet ORAL BID PRN polyethylene glycol 3350 17 g packet 17 g ORAL DAILY PRN Assessment/Plan: *GI bleed (10/31/2024) Anemia (10/31/2024) Hematemesis with nausea (10/31/2024) Melena (10/31/2024) Hemoglobin stable since yesterday Patient underwent EGD and colonoscopy today, no acute pathology was identified Continue monitoring Continue current medications GI is following HTN (hypertension) (08/08/2023) Monitor vital signs Neuroendocrine tumor (10/31/2024) Oncology is following Discussed with patient, RN Lew Arita MD Date: 11/01/24 Time: 8:09 PM This note was partially created using voice recognition software and is inherently subject to errors including those of syntax and sound-alike substitutions which may escape proofreading. 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 - Normal duodenal bulb. - A gastrojejunostomy was found, characterized by healthy appearing mucosa. - The examined portion of the jejunum was normal. - Erythematous mucosa in the gastric body. - Z-line, 38 cm from the incisors. - Normal esophagus. - No specimens collected. - No signs or stigmata of active or recent GI bleeding. Recommendation: - Return patient to hospital [facility] for ongoing care. - Resume previous diet. - Continue present medications. - The patient is not currently taking anticoagulant or antiplatelet agents. Colonoscopy 11/01/24 Impression: - Preparation of the colon was [...] prognosis because the bowel preparation was suboptimal. Discussed with Dr. Winters. Recommending [facility] evaluation for hemorrhoid ligation as OP. Gi will sign off at this time. Please call with questions and concerns. [facility] 11-01-2024 Telephone encounter Note Triage encounter sent 11/01/24. Patient needs to be scheduled on December 02 for PET T [facility] 11-01-2024 Telephone encounter Note This form is used for MAIN CAMPUS APPOINTMENTS ONLY. Is this request for a [facility] [place] PET scan appointment? Yes: Shuttler Car: Melissa Mccann Requesting Person (Last Name, First Name): Roselyn Jacksonmonse Area Code + Phone/Pager: [phone] Who do we call to schedule this appointment? Other Contact: PSMA PET to be done at [facility]. Route to Jessy Guerra to schedule. Requesting Staff Roselyn Leonard Area Code + Phone/Pager: [phone] PET Orders (A delay in scheduling will result if the orders are not present at time of review): Internal ADDITIONAL ACTION MAY BE REQUIRED IF PATIENTS OON INSURANCE OR SELF PAY COVERAGE HAS NOT BEEN CLEARED FOR REQUESTED APPOINTMENT. Scheduling: DELIA: As soon as insurance will allow What account will this PET appointment be linked to? P/F Type of PET: Oncology: Are there additional diagnostic CT scans required to be done at time of PET scan? No Is the request for a PET MR ? No What account will diagnostic testing appointment be linked to? P/F Will the patient need anesthesia? NO Send requests to [facility] 11-01-2024 Miscellaneous Notes This form is used for MAIN CAMPUS APPOINTMENTS ONLY. Is this request for a [facility] [place] PET scan appointment? Yes: Shuttler Car: Melissa Mccann Requesting Person (Last Name, First Name): Roselyn flroafior Area Code + Phone/Pager: [phone] Who do we call to schedule this appointment? Other Contact: PSMA PET to be done at [facility]. Route to Jessy Mari to schedule. Requesting Staff Roselyn Leonard Area Code + Phone/Pager: [phone] PET Orders (A delay in scheduling will result if the orders are not present at time of review): Internal ADDITIONAL ACTION MAY BE REQUIRED IF PATIENTS OON INSURANCE OR SELF PAY COVERAGE HAS NOT BEEN CLEARED FOR REQUESTED APPOINTMENT. Scheduling: DELIA: As soon as insurance will allow What account will this PET appointment be linked to? P/F Type of PET: Oncology: Are there additional diagnostic CT scans required to be done at time of PET scan? No Is the request for a PET MR ? No What account will diagnostic testing appointment be linked to? P/F Will the patient need anesthesia? NO Send requests to [facility] documented in this encounter [facility] 10-28-2024 Radiology Diagnostic study note [facility] [place] [address] [place] [address] CT Scan Report Signed Patient: Aisha Julien MR#: [id number] : 1955 Acct:[id number] Age/Sex: 69 / M ADM Date: 5 Loc: ER Room: Type: [facility] ER Attending Dr: Copies to: Do Darrius Ramos MD, RES~ Ordering Provider: Darrius Brown MD, RES Date of Service: 10/28/24 CT/CT abdomen pelvis w con: GI bleed ([id number]) CT/CT chest w con: cough, black emesis CT CHEST, ABDOMEN AND PELVIS WITH INTRAVENOUS CONTRAST: CLINICAL HISTORY: Cough and dark emesis. History of duodenal surgery. COMPARISON: CT abdomen 07/24/2023 and 06/06/2021 TECHNIQUE: Spiral images were obtained through the chest, abdomen and pelvis following intravenous administration of 90 mL of Isovue 300. Images of the chest were reviewed using both narrow and wide window settings. This CT exam was performed using one or more following dose reduction techniques: Automated exposure control, adjustment of the mA and/or kV according to patient size, or use of iterative reconstruction technique. The heart is not enlarged. There is no pericardial effusion. No aortic aneurysm or dissection is seen. There is no mediastinal or hilar lymphadenopathy. There is minor gynecomastia. Old right rib fractures are present. There are some mild degenerative changes at the spine. There is an irregular opacity at the left apex measuring around 2 cm in size. There are areas of linear atelectasis and/or scarring bilaterally. There is no additionalconsolidation, pleural effusion or pneumothorax. No calcified gallstones are identified. Fatty infiltration of the liver is suspected. There is a subtle hepatic hypodensity small hepatic hypodensities are again seen, potentially hemangioma is . The spleen, pancreas and adrenal glands show no acute findings. There is possible slight delay in the left renalnephrogram though no evidence of hydronephrosis. No renal or ureteral stones are identified. The abdominal aorta is normal caliber and there is minor atherosclerotic plaque. A new vertical midline surgical incision is suggested. There are continued scattered abdominal lymph nodes, largest at the root of mesentery. Stranding is again seen within the mesentery. There is mild fluid within the stomach and duodenum. The small bowel loops are within normal limitsfor caliber. The colon is decompressed and there are segments of apparent wall thickening. No appendiceal inflammation is present. There is a tiny umbilical hernia containing fat. Slight levoscoliotic curvature and degenerative changes are again seen within the spine. Images through the pelvis show no dilated small bowel loops. There is air and asmall amount of stool at the distal colon. No diverticular disease is seen. There is additional mild stranding within the pelvic mesentery. No additional adenopathy is seen. There is no ascites. The prostate is slightly prominent and contains calcification. The urinary bladder wall is borderline thickened for the degree of distention. A lipoma is noted along the superficial margin ofthe right gluteus muscle. There is some stranding within the subcutaneous fat at the right mid back about the site. CT/CT chest w con IMPRESSION: IRREGULAR LEFT APICAL OPACITY. SINCE THERE ARE NO COMPARISONS, CLINICAL CORRELATION AND FOLLOW-UP WILL BE NEEDED. ALTHOUGH IT COULD BE INFECTIOUS OR INFLAMMATORY, NEOPLASM IS NOT EXCLUDED ON THE BASIS OF THIS EXAM. SCARRING AND/OR ATELECTASIS. FATTY LIVER WITH SUSPECTED HEMANGIOMAS. CONTINUED ABDOMINAL LYMPHADENOPATHY AND STRANDING WITHIN THE MESENTERY. THERE APPEARS TO BE INTERVAL SURGERY AND CORRELATION WITH DETAILS OF THE PROCEDURE ANDFINDINGS IS RECOMMENDED. NO BOWEL OR URINARY TRACT OBSTRUCTION. CONTINUED BORDERLINE THICKENING OF THE URINARY BLADDER WALL. Impression dictated by: Génesis West M.D.10/28/2024 3:32 PM Dictation Location: [place] [address] Transcribed By: [facility] 10/28/24 1532 Dictated By: Génesis West MD 10/28/24 1507 Signed By: 10/28/24 1535 [facility] Work Phone: 10-25-2024 Telephone encounter Note I have Mr. Julien flagged for his Pet scan for November. We have to send a phone encounter to triage this for approval. He is on my schedule to send encounter on Friday. [facility] 10-25-2024 Telephone encounter Note I reached out to Mr. Julien today regarding his upcoming Sandostatin injection and he notified me he retired 10/22/24. He now has [employer] insurance: [employer] ID [id number] plan# ([id number]) [id number] customer service [phone] He also stated he thinks he should be scheduled for a PET scan at least 3 weeks after his next injection (11/05) however, he does not currently have an appointment for a PET. Please advise. Thank you, Rosaline Jon RPh [facility] Work Phone: 10-19-2024 History of Present illness Narrative Images from the original note were not included. Patient ID: Aisha Julien is a 69 y.o. male who presents for: Needed fasting labs/ordered not completed Hypertension Patient is here for follow-up of elevated blood pressure. He is not exercising and is adherent to a low-salt diet. Blood pressure is well controlled at home. Cardiac symptoms: none. Patient denies chest pain, dyspnea, irregular heart beat, lower extremity edema, and palpitations. Cardiovascular risk factors: advanced age (older than 55 for men, 65 for women), dyslipidemia, hypertension, male gender, microalbuminuria, sedentary lifestyle, and smoking/ tobacco exposure. Use of agents associated with hypertension: none. History of target organ damage: none. Hyperlipidemia Pt who presents for follow-up of dyslipidemia. A repeat fasting lipid profile was not done. The patient does not use medications that may worsen dyslipidemias (corticosteroids, progestins, anabolic steroids, diuretics, beta-blockers, amiodarone, cyclosporine, olanzapine). Exercise: rarely. Benign Prostatic Hypertrophy Patient complains of lower urinary tract symptoms. He reports incomplete emptying and nocturia four times a night. Onset of symptoms was several years ago and was gradual in onset. He has no personal history and no family history of prostate cancer. He denies no complicating symptoms. Review of Systems Constitutional: Negative for activity change and fatigue. Respiratory: Negative for cough, shortness of breath and wheezing. Cardiovascular: Negative for chest pain, palpitations and leg swelling. Neurological: Negative for light-headedness and headaches. Objective The patient is pleasant and in no acute distress. The neck is supple and trachea is midline. No masses are appreciated. The heart is regular rate and rhythm without S3, S4. 3/6 systolic murmur heard best on the left chest wall. The patient has normal respiratory pattern. The breath sounds are Diffusely decreased but symmetrical without evidence of rhonchi or rales. No wheezing. The skin is warm and dry. The lower extremities have trace edema. The patient has good eye contact and speech is clear. Appropriate affect. Visit Vitals BP 126/72 Pulse 82 SpO2 97% Smoking Status Never See the scanned blood pressure and heart rate readings No Known Allergies Current Outpatient Medications on File Prior to Visit Medication Sig Dispense Refill finasteride (Proscar) 5 MG tablet Take 1 tablet (5 mg) by mouth in the morning. Do not crush, chew, or split.. 90 tablet 3 losartan (Cozaar) 100 MG tablet Take 1 tablet (100 mg) by mouth Daily 45 tablet 0 octreotide (SandoSTATIN) 20 MG injection Inject 20 mg into the shoulder, thigh, or buttocks See administration instructions Take to provider office for and inject 20mg IM every 3 weeks as directe No current facility-administered medications on file prior to visit. 1. Benign essential hypertension (CMS/HCC) (Primary) Chronic problem, stable, to goal - losartan (Cozaar) 100 MG tablet; Take 1 tablet (100 mg) by mouth Daily Dispense: 90 tablet; Refill: 1 2. Hypertensive nephropathy (CMS/HCC) Chronic problem, unstable, demonstrating progression of end organ damage from their current state of health. I stressed the importance of keeping blood pressure and blood sugar to goal, staying well hydrated, avoiding NSAIDs, and aerobic exercises as tolerated. Continue to monitor longitudinally. 3. Stage 3a chronic kidney disease (HCC) (CMS/HCC) Chronic problem, unstable, progressing, defining the end organ damage of the nephropathy. I stressed the importance of keeping blood pressure and blood sugar to goal, staying well hydrated, and aerobic exercises as tolerated. Continue to monitor longitudinally 4. Microalbuminuria He is overdue for this and also has an order from October 13, 2024 5. Mixed hyperlipidemia (CMS/HCC) After review of the labs in the medical record I can not find any lipid profile since 2022. He does still have in order from October 13 that needs to be done. I reviewed with him in his fasting. 6. Benign prostatic hyperplasia with weak urinary stream In prescribing a renewal to their current medication, consideration of the following encompasses moderate decision making; the current prescriptions and supplements, the current allergies and medication intolerances, current medical conditions, and potential drug interactions. Any changes to risks, benefits, and reason for renewing their current medication due to the above were discussed. The patient was given a chance to ask questions today and all questions were answered. The patient is to contact us if any other questions arise or if any problems occur. (Utilizing the original 1994/1996 guidelines or the 2020 office/outpatient code guidelines for selecting the level of E/M service, In both sets of guidelines, prescription drug management appears in the moderate medical decision making (MDM) row. Neither the original guidelines nor the new guidelines state that a new prescription or change is needed in order to credit prescription drug management) - finasteride (Proscar) 5 MG tablet; Take 1 tablet (5 mg) by mouth Daily Do not crush, chew, or split. Dispense: 90 tablet; Refill: 3 documented in this encounter [facility] 10-15-2024 Telephone encounter Note Patient's insurance now requires Sandostatin to be filled at [facility] pharmacy. Please review and authorize Sandostatin rx. Thank you, Rosaline Jon RPh [facility] 10-15-2024 Miscellaneous Notes Patient's insurance now requires Sandostatin to be filled at [facility] pharmacy. Please review and authorize Sandostatin rx. Thank you, Rosaline Jon RPh documented in this encounter [facility] 10-15-2024 Note HNO ID: [id number] Author: CLAUDIA ROBERTS RN Service: ? Author Type: Registered Nurse Type: Progress Notes Filed: 10/15/2024 08:29 Note Text: Ok to treat per pharmacy. Claudia Roberts RN [facility] 10-15-2024 History of Present illness Narrative Ok to treat per pharmacy. Claudia Roberts RN documented in this encounter [facility] 09-23-2024 Telephone encounter Note Per [facility] - DOS 09/24/24 is covered on medical insurance (buy and bill). Future DOS - [place] pending. Faxed in [place] form 09/23/24. Rosaline Jon RPh [facility] 09-23-2024 Miscellaneous Notes Per [facility] - DOS 09/24/24 is covered on medical insurance (buy and bill). Future DOS - [place] pending. Faxed in [place] form 09/23/24. Rosaline Jon RPh Office note faxed to above fax number. Advised to call back later today or tomorrow to see if they will approve the 09/24 dose under medical for a 1 time exception. Moving forward this would have to be approved and filled through specialty pharmacy. [facility] will review patient's benefits and fax a form to be completed by the office and faxed back in for pharmacy authorization determination. Once they receive this completed form they indicated a 3-72 TAT for determination. Call ref# [id number] Rosaline Jon RPh documented in this encounter [facility] 09-22-2024 Telephone encounter Note Office note faxed to above fax number. Advised to call back later today or tomorrow to see if they will approve the 09/24 dose under medical for a 1 time exception. Moving forward this would have to be approved and filled through specialty pharmacy. [facility] will review patient's benefits and fax a form to be completed by the office and faxed back in for pharmacy authorization determination. Once they receive this completed form they indicated a 3-72 TAT for determination. Call ref# [id number] Rosaline Jon RPh [facility] 09-17-2024 Telephone encounter Note Per patient's insurance, Sandostatin must now be billed and supplied by Pharmacy. Please review and approve the prescription so we can start the whitebag process. Thank you, Rosaline Jon RPh [facility] Work Phone: 09-17-2024 Miscellaneous Notes Per patient's insurance, Sandostatin must now be billed and supplied by Pharmacy. Please review and approve the prescription so we can start the whitebag process. Thank you, Rosaline Jon RPh documented in this encounter [facility] 08-13-2024 Instructions Reina Bridges - 08/13/2024 2:04 PM EST Sandostatin C9 today and q 3 weeks C10, 11 with no clinician Labs q 3 weeks Neuroendocrine PET on 12/02/2024 C12 Sandostatin same day just after scan - delayed by 1 week for scan RTC 1 week after scan to review documented in this encounter [facility] 08-13-2024 History of Present illness Narrative Images from the original note were not included. NAME: Aisha Julien [facility] NO.: [id number] DATE OF SERVICE: August 13, 2024 ([facility]) Some elements in this clinic note that are critical to medical decision making have been carefully reviewed and included from a prior clinic note dated: July 08, 2024 ([place]) Referring Provider: Dr. 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 The patient is status post palliative GJ bypass on 10/29/2023 and presents for systemic therapy with SSA (Sandostatin). CT scan in January 2024 with improvement in disease. Symptoms remain stable overall except for a recent episode (April 2024) of syncope that was preceded by nausea. I am unsure if this is related to active disease versus single episode. Additionally has a 1.7 cm irregularly marginated nodular mass in the left apical lung that I'd like to get a PET scan for to delineate better. - PET showed non-avidity of this lesion in June 2024. Will hold sandostatin LAR and obtain Dotatate PET to evaluate concern for pancreatic progression as well as low grade left apical lesion. PLAN: Sandostatin C9 today and q 3 weeks C10, 11 with no clinician Labs q 3 weeks Neuroendocrine PET on 12/02/2024 C12 Sandostatin same day just after scan - delayed by 1 week for scan RTC 1 week after scan to review HPI: CASE HISTORY: Reverse Chronological Order 08/13/2024 - Increased Sandostatin to q 3 weeks 08/03/2024 - Neuroendocrine PET: PRIMARY DISEASE SITE: Slight increased size of distal ileum metabolically avid lesion with adjacent partially calcified implant representing biopsy-proven neuroendocrine tumor. ANILA DISEASE: Overall worsened abdominopelvic lymph node metastases with multiple new tracer avid nodes. Left supraclavicular tracer avid lymph nodes representing metastasis. METASTATIC DISEASE: Patchy, near complete tracer uptake throughout the pancreas. Scattered osseous metastases in the ribs and bony pelvis. ADDITIONAL FINDINGS: New left UVJ nonobstructing calculus. Krenning Score: 4 07/08/2024 - Chromogranin A: 213.9 06/03/2024 - PET/CT: HEAD/NECK: No evidence of FDG avid neoplastic process CHEST: Left apex nonhypermetabolic 1.7 cm nodule. Tissue sampling/follow-up imaging, the exclude a low metabolic rate neoplastic process, as clinically indicated - ACTIONABLE RESULT. No hypermetabolic/pathologic lymphadenopathy. ABDOMEN/PELVIS: Small area of increased uptake within the larger pancreatic body/uncinate findings described on the 05/13/[address] No focal abnormal uptake at the pancreas tail lesion. Correlation with pancreas MRI, tissue sampling, and/or Dotatate PET/CT, as clinically indicated. No hypermetabolic/pathologic lymphadenopathy. MUSCULOSKELETAL: 6.9 cm RIGHT gluteus carole presumed lipoma, mild uptake at the nodularity. Relation with MSK MRI, as clinically indicated. 9.6 cm RIGHT gluteal subcutaneous presumed hematoma. Based on the clinical history, further evaluation may be performed. No hypermetabolic osseous lesion. 06/03/2024 - Chromogranin A: 137.7 05/13/2024 - CT Chest & Pancreas/Pelvis: Chest: 1.7 cm irregularly marginated nodular mass at the left apex is appreciated, concerning for metastases. No substantial intrathoracic adenopathy is appreciated. A few scattered small osseous sclerotic foci are appreciated as above. Given the patient's history, the possibility of osseous metastases is not excluded. P/P: There is an overall stable appearance to peripancreatic metastatic nodules/adenopathy Extensive mesenteric and retroperitoneal adenopathy, not substantially changed. Arterial enhancement/thickening involving a short segment of the distal ileum, more conspicuous in appearance from the prior examination, which may relate to the patient's known primary carcinoid tumor. Adjacent partially calcified right lower quadrant adenopathy, relatively stable in appearance. Trace perihepatic and perisplenic ascites, the possibility of a peritoneal implant at the dome of the right lobe of the liver, unchanged. Stable appearance to severe narrowing/occlusion of the superior mesenteric vein secondary to anila metastases, stable appearance to significant narrowing of the splenic vein Diffuse osseous metastases is again suspected 05/13/2024 - Chromogranin A: 170.5 04/21/2024 - Chromogranin A: 161.1 03/24/2024 - Chromogranin A: 169.7 02/24/2024 - Chromogranin A: 187.8 02/18/2024 - CT Pancreas/Pelvis: Redemonstrated findings of the known extensive metastatic neuroendocrine neoplasm, with slight improvement seen compared to September 2023. Decrease in the length of the focally thickened segment of ileum in the right lower quadrant, at the site of the known primary ileal neuroendocrine tumor. An adjacent partially calcified right lower quadrant lymph node metastasis has decreased as well. Slight decrease in size of extensive mesenteric lymph node metastatic disease and retroperitoneal lymph node metastatic disease, with measurements provided above. Stable appearing infiltrative appearing neoplasm in the left anterior pararenal space of the retroperitoneum, and similar appearing possible intraperitoneal capsular implant along the dome of the liver. Stable appearance of numerous small sclerotic foci, likely indicating stable skeletal metastatic disease. Stable appearance of severe narrowing/occlusion of the [...] the right lower quadrant, similar to previously. 01/28/2024 - Chromogranin A: 136.4 12/03/2023-06/17/2024 - Sandostatin LAR q 4 weeks 10/29/2023 - Laparotomy, gastrojejunostomy (Bilroth II reconstruction), takedown of gastrocutaneous fistula, and placement of distal feeding tube 10/29/2023-11/07/2023 - Admitted at [facility] - observation after surgery 10/01/2023 - CT Pancreas/Pelvis: Metastatic neuroendocrine tumor with grossly stable, multifocal measurable disease from recent priors as detailed. Sclerotic osseous foci suspected metastatic and grossly unchanged. Percutaneous gastrojejunostomy remains in place, with mild proximal duodenal dilation, similar to recent prior. No gross interval gastric outlet obstruction otherwise. Minimal residual ascites, intervally improved. 09/02/2023 - CT Pancreas/Pelvis: Widespread metastatic disease as described related to the patient's known neuroendocrine tumor. Small volume abdominal ascites new since 08/28/2023. Right lower lobe opacities more confluent since prior. 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 Pancreatic uncinate neuroendocrine neoplasm and low-attenuation hepatic lesions are better evaluated on prior contrast-enhanced CT. Development of patchy ground glass opacities right lower lobe, likely pneumonia/aspiration. Diffusely heterogeneous osseous mineralization which could be related to osteopenia or infiltrative metastatic disease (and could be further differentiated with Dotatate PET-CT). 08/28/2023 - CT Brain: No CT evidence of acute intracranial process 08/28/2023 - CXR: No evidence of active disease. 08/28/2023-09/05/2023 - Admitted at [facility] - Patient sent by surgery with failure to thrive, concern for dehydration. 08/17/2023 - ECHO: EF: 58 08/14/2023 - PEG-J tube had moved out of place, repositioned by GI 08/13/2023 - PEG-J tube placed 08/13/2023 - Fine needle aspirations: A. Pancreas, uncinate mass, biopsy: -Well-differentiated neuroendocrine tumor, at least WHO grade 1 (Ki67 <3%) in this specimen. -Tumor cells are strongly positive for CAM5.2, synaptophysin, INSM1, and chromogranin supporting the above interpretation. B. Lymph node, biopsy: -Predominantly hemorrhage admixed with some lymphoid tissue and smooth muscle. -No evidence of neoplasm in this material. 08/08/2024 - CT Pancreas/Pelvis: Hypoenhancing mass involving the uncinate process of the pancreas and retroperitoneal lymphadenopathy. Suspect neoplasm. Two indeterminate hepatic hypodensities. 08/07/2023-08/17/2023 - Admitted at [facility] - Nausea & Vomiting: Sent by GI for weight loss and unable to keep anything down since June. 07/25/2023 - EGD with biopsy: - Duodenal mass - [facility] - Dr. Linder 07/24/2023 - CT A/P: at [facility] A mass is noted in the region of the third portion of the duodenum with associated obstruction of the stomach and proximal duodenum. The mass is difficult to measure but measures approximately 3.4 x 3.4 cm in greatest axial dimensions. There appears to be adjacent bulky lymphadenopathy involving the mesentery extending inferiorly some of which appears partially calcified. There also appears yto be left periaortic lymphadenopathy. It is difficult to say with certainty whether this mass arises from the small bowel or pancreas. Given the partially calcified lymphadenopathy a carcinoid tumor is suspected. Findings have progressed since prior study. Mesenteric engorgement is seen. Given the size of the mass, portal vein/SMV thrombosis cannot be excluded. 07/10/2023 - Presented to PCP with abdominal pain onset 1 week prior Updated Visit, August 13, 2024: Aisha returns for a follow up. Recent PET shows a slight increase in size of the primary disease site and overall worsening disease in abdominopelvic metastases. His Chromogranin A has also increased from 05/2024-06/2024. He endorses new occasional abdominal pain. Will increase Sandostatin to q 3 weeks x 3 doses and then restage. Updated Visit, July 08, 2024: Aisha returns for a follow up. He endorses recent flu-like symptoms: nausea, vomiting, diarrhea, cold chills, hot flashes. He says he has recovered now. I recommended visiting the ER for recurrent/worsening symptoms. PET/CT shows 1.7cm left apex nodule was nonhypermetabolic and small area of increased uptake in the pancreatic body. I will order a Dotatate PET/CT. Updated Visit, June 03, 2024: Aisha returns today and PET/CT images reviewed - awaiting radiology interp. Sample images noted below. Unclear what is showing up in the left gluteal region. He has a rash on both buttocks that is erythematous and scaly. Recommended diaper rash ointment. Updated Visit, May 20, 2024: Aisha returns today, doing well overall. CT Chest shows 1.7cm irregularly marginated mass at the left apex that is concerning for metastases. He endorses chemical exposure due to work. He was never a cigarette smoker, does smoke the occasional cigar and has a prior history of marijuana in the 70s. I will order a PET/CT to monitor. He reports a collapsed left lung after a fall a while back - I do not believe that is related to what is seen on current imaging. Pancreas/pelvis CT is overall stable. He is due to continue Sandostatin today. Anemia is stable, iron studies were normal last month. He had a syncopal episode at work recently, subsequently fell. He reports feeling nauseous prior to syncope. He was found to be hypotensive. He needs a release now to return to work, which I will complete for him. He had similar symptoms prior to his original diagnosis last year. Updated Visit, March 24, 2024: Aisha returns today for a follow up. He is tolerating Sandostatin well. His recent scan shows response to treatment. Continue Sandostatin today and q 4 weeks. Will repeat scans in 7 weeks and draw tumor markers. Updated Visit, February 24, 2024: Patient returns for follow up. CTs show improvement. Sandostatin LAR is going well. He denies any symptoms remains. He is eating well and having good bowel movements. Denies any current flushing or pain. Updated Visit, January 28, 2024: Aisha returns today for a follow up. He is tolerating Sandostatin LAR well with no complaints. He is able to eat more without nausea or vomiting. He has also been able to return to work. Hgb has improved to 12.3. Repeat CT pancreas/pelvis in 3 weeks, consider PET based on results for questionable bone mets. Proceed Sandostatin today. Initial Visit, December 03, 2023: Aisha Julien presents today for a Hematology and Oncology evaluation. He is a 68 year old male who was found to have a small bowel neuroendocrine tumor with metastases in 06/2023. He had an open GJ bypass on 10/28. He would like to start systemic therapy (Sandostatin) here in [place]. Incidents of nausea after eating got more frequent over the past two years prior to diagnosis. He has a PICC line currently, PEG-J tube did not work well for him. He is not in pain now, a little sore on site of stitches. Prior History from Dr. 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 The patient is status post palliative GJ bypass on 10/29/2023, recovering well. Updated History: Aisha Julien is a 68 year old male who underwent an open GJ bypass on 10/29/2023 for duodenal obstruction from metastatic SB-NET. He is recovering well without complications. He is tolerating PO intake and has normal BM. No nausea or emesis. Has been on FLD since discharge. Remains active and able to carry out his daily activities. No wound complications. Treatment Plan: Advance to regular diet as tolerated Once regular diet is tolerated, would recommend removing the PICC line since no TPN or IV hydration will be needed. Referral to medical oncology to consider systemic therapy (Sandostatin) Return to surgery clinic as needed REVIEW OF SYSTEMS Per HPI and otherwise negative by full review of organ systems. ECOG PERFORMANCE STATUS: 1 PHYSICAL EXAMINATION: Vitals: BP 146/76 Pulse 64 Temp (Src) 97.7 (Temporal) Resp 18 Wt 175 lb 7.8 oz (79.6kg) SpO2 99% Body surface area is 1.98 meters squared. Exam limited to gross visualization where appropriate. Gen.: This is an age-appropriate patient in no acute distress. Head: Appears atraumatic with no visible lesions. Eyes: Pupils equally round and reactive to light, extraocular muscles are intact. Neck: Supple. Respiratory: Appears to be respiring comfortably. Neurologic: Nonfocal to gross visualization. Alert and oriented 3. Psychiatric: No evidence of inappropriate anxiety or depression. Skin: Visible areas of skin without rash, lesions, wounds or petechiae. See HPI -06/03/2024 ALLERGIES: ALLERGIES No Known Allergies MEDICATIONS: losartan (COZAAR) 100 mg tablet Take 100 mg by mouth once daily. finasteride (PROSCAR) 5 mg tablet Take 5 mg by mouth every other day. dilTIAZem CR (TIAZAC, TAZTIA XT) 180 mg 24 hr capsule Take 180 mg by mouth once daily. metoprolol succinate ER (TOPROL XL) 50 mg 24 hr tablet Take 50 mg by mouth once daily. MULTIVITAMIN ORAL Take by mouth. LABORATORY VALUES: WBC (k/uL) Date Value 08/13/2024 3.77 RBC (m/uL) Date Value 08/13/2024 3.48 (L) Hemoglobin (g/dL) Date Value 08/13/2024 10.9 (L) Hematocrit (%) Date Value 08/13/2024 33.7 (L) MCV (fL) Date Value 08/13/2024 96.8 MCH (pg) Date Value 08/13/2024 31.3 MCHC (g/dL) Date Value 08/13/2024 32.3 RDW-CV (%) Date Value 08/13/2024 12.6 Platelet Count (k/uL) Date Value 08/13/2024 241 MPV (fL) Date Value 08/13/2024 10.4 Glucose (mg/dL) Date Value 08/13/2024 99 BUN (mg/dL) Date Value 08/13/2024 18 Creatinine (mg/dL) Date Value 08/13/2024 1.03 Sodium (mmol/L) Date Value 08/13/2024 139 Potassium (mmol/L) Date Value 08/13/2024 5.0 Chloride (mmol/L) Date Value 08/13/2024 108 (H) CO2 (mmol/L) Date Value 08/13/2024 22 Protein, Total (g/dL) Date Value 08/13/2024 6.4 Albumin (g/dL) Date Value 08/13/2024 4.1 Calcium, Total (mg/dL) Date Value 08/13/2024 8.4 (L) Alkaline Phosphatase (U/L) Date Value 08/13/2024 118 (H) Bilirubin, Total (mg/dL) Date Value 08/13/2024 0.3 AST (U/L) Date Value 08/13/2024 20 ALT (U/L) Date Value 08/13/2024 13 Triglyceride (mg/dL) Date Value 09/02/2023 70 DIAGNOSIS: (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) (primary encounter diagnosis) Plan: NM PET/CT NEUROENDOCRINE WHOLE BODY IMAGING (C7B.8) 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) (R91.8) Lung mass PAST MEDICAL HISTORY Diagnosis Date Essential hypertension GERD (gastroesophageal reflux disease) PAST SURGICAL HISTORY Procedure Laterality Date ARTHROSCOPY KNEE DIAGNOSTIC W/WO SYNOVIAL BX SPX Bilateral states x3 COLONOSCOPY DIAGNOSTIC 2021 no polyps EGD DIAGNOSTIC 08/14/2023 PAST SURGICAL HISTORY OF 1965 tonsilectomy Social History Tobacco Use Smoking status: Never Smokeless tobacco: Never Vaping Use Vaping status: Former Substance Use Topics Alcohol use: Yes Comment: a few beers per day Drug use: Not Currently FAMILY HISTORY Problem Relation Age of Onset Uterine Cancer Mother other (bile duct cancer) Sister Colon Cancer No Family History I spent a total of 40 minutes on the date of service which included preparing to see the patient, [id number] patient care, completing clinical documentation, performing a medically appropriate examination, counseling and educating the patient/family/caregiver, ordering medications, tests, or procedures, independently interpreting results (not separately reported), communicating results to the patient/family/caregiver, and care coordination (not separately reported). Roselyn Leonard MD, CPE Hematology and Oncology Services Provided at: [place], [place] Scribe Attestation: This note was scribed by Reina Bridges on August 13, 2024 under the direction and supervision of Dr. Roselyn Leonard. I attest that all of the information documented is correct to the best of my knowledge. Provider Attestation: I, Roselyn Leonard MD, attest that all information documented by the above scribe is correct, and was supervised by me and under my direction. CC: Samer Naffouje [id number] [facility] [id number] Rene Cannon MD, MD [address] [facility] [id number] documented in this encounter [facility] 08-13-2024 Note [facility] 08-11-2024 Telephone encounter Note Pt notified and verbalizes understanding. Jessy Butcher, RN [facility] Work Phone: 08-11-2024 Telephone encounter Note ----- Message from Roselyn Leonard MD sent at 08/11/2024 12:40 PM EST ----- Hi Aisha - looks like the disease may be worsening - let's talk more when I see you this week. [facility] 08-11-2024 Miscellaneous Notes Pt notified and verbalizes understanding. Jessy Butcher RN ----- Message from Roselyn Leonard MD sent at 08/11/2024 12:40 PM EST ----- Hi Aisha - looks like the disease may be worsening - let's talk more when I see you this week. documented in this encounter [facility] 08-03-2024 History of Present illness Narrative RADIOLOGY SERVICE PROGRESS NOTE SERVICE DATE: 08/03/2024 SERVICE TIME: 7:20 AM PATIENT IDENTITY VERIFICATION COMPLETED USING TWO (2) STANDARD IDENTIFIERS: Name and Date of confirmed by patient verbally FALL SCREENING: Has the patient had 2 falls in the last year or 1 fall with injury or currently using an Ambulatory Assistive Device (Walker, Cane, Wheelchair, Crutches, etc.)? No PATIENT GENDER DATA: .male : No ALLERGIES: Reviewed and unchanged MEDICATIONS REVIEWED: No PATIENT RELEVANT IMPLANT DATA REVIEWED: Not Applicable PATIENT PRESENTS WITH AN IMPLANTABLE OR ATTACHED SALVAGE DETERMINER: No CREATININE: Creatinine Date Value Ref Range Status 07/08/2024 1.04 0.73 - 1.22 mg/dL Final 06/03/2024 0.91 0.73 - 1.22 mg/dL Final 05/13/2024 1.12 0.73 - 1.22 mg/dL Final Estimated Glomerular Filtration Rate Date Value Ref Range Status 07/08/2024 78 >=60 mL/min/1.73m Final Comment: Estimated Glomerular Filtration Rate (eGFR) [...] not accurately reflect actual GFR. P.O.C.T. RESULTS: N/A August 03, [address] PERFORMED: No IV SITE: Ambulatory: A peripheral IV was started in the Right hand with a Angio cath: 24 gauge. POST EXAM PIV STATUS: Discontinued PROCEDURE TYPE: NM INJECT: DOTATATE PET. 4.7 mCi [id number]. No other medications given.. ADMINISTRATION TIME: 716 PATIENT DISCHARGED TO: Ambulatory patient, left NM department area. Is this a therapy: No A Diagnostic radioactive procedure has taken place, with no further precautions necessary other than routine body substance precautions. More information regarding radiation safety can be found using this link: [email or web address] SIGNATURE: PERRY Allison) PATIENT NAME: Aisha Julien DATE: August 03, 2024 TIME: 7:20 AM PAGER/CONTACT #: documented in this encounter [facility] 08-03-2024 Note [facility] 07-12-2024 Telephone encounter Note 07/12/2024 1st Attempt, LVM [facility] 07-12-2024 Miscellaneous Notes 07/12/2024 1st Attempt, LVM DOTATATE Comments for Assistant Branch Operations Manager: N/A Will the patient need anesthesia: no Treatment: Sandostatin Long Acting Date of Last Treatment: 06-17-24 Date of Future Treatment: being held till after PET scan Primary Insurance: Chase GAMEZ Imaging: PET Scan: 06-03-24 F-18 FDG [facility] Diagnosis: 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 Additional Information/Imaging: N/A Dotatate [id number]/[id number] Gallium Dotatate (NetSpot) C7B.8, R91.8 Auth#: no precert needed Date Range: 07-09-24 to 08-24-24 for 1 dos NPI: Roselyn Leonard [id number] Member ID: Chase FARRELL Ill [id number] Site/Contact: [facility] provider line Case/Ref#: Notes: per recording no precet needed for PET/Ct Neuroendocrine scan cpt 70762 / A9587 call reference # [id number] Route to or Requested Scheduling Pool: P PET REAL ESTATE LOAN OFFICER , P [facility] CLERICAL POOL([place]), P [place] [facility] This form is used for MAIN CAMPUS APPOINTMENTS ONLY. Is this request for a Main [place] PET scan appointment? Yes: Shuttler Car: Hyacinth Arellano Sec Requesting Person (Last Name, First Name): Roselyn Leonard Area Code + Phone/Pager: [phone] Who do we call to schedule this appointment? Patient Requesting Staff Hyacinth Arellano Area Code + Phone/Pager: [phone] PET Orders (A delay in scheduling will result if the orders are not present at time of review): Internal ADDITIONAL ACTION MAY BE REQUIRED IF PATIENTS OON INSURANCE OR SELF PAY COVERAGE HAS NOT BEEN CLEARED FOR REQUESTED APPOINTMENT. Scheduling: DELIA: As soon as insurance will allow What account will this PET appointment be linked to? P/F Type of PET: Oncology: Are there additional diagnostic CT scans required to be done at time of PET scan? No Is the request for a PET MR ? No What account will diagnostic testing appointment be linked to? P/F Will the patient need anesthesia? 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 Additional Information/Imaging: N/A Dotatate [id number] Gallium Dotatate (NetSpot) C7B.8, R91.8 Auth#: no precert needed Date Range: 07-09-24 to 08-24-24 for 1 [place]man NPI: Roselyn Leonard [id number] Member ID: Chase FARRELL Ill [id number] Site/Contact: [facility] [place] provider line Case/Ref#: Notes: per recording no precet needed for PET/Ct Neuroendocrine scan cpt 42221 / [id number] call reference # [id number] Route to or Requested Scheduling Pool: P PET REAL ESTATE LOAN OFFICER , P [facility] CLERICAL POOL([place]), P [place] PUBLIC HEALTH ADVISOR [facility] 07-08-2024 Telephone encounter Note This form is used for MAIN CAMPUS APPOINTMENTS ONLY. Is this request for a [facility] [place] PET scan appointment? Yes: Shuttler Car: Hyacinth Wheeler Requesting Person (Last Name, First Name): Roselyn Leonard Area Code + Phone/Pager: [phone] Who do we call to schedule this appointment? Patient Requesting Staff Hyacinth Arellano Area Code + Phone/Pager: [phone] PET Orders (A delay in scheduling will result if the orders are not present at time of review): Internal ADDITIONAL ACTION MAY BE REQUIRED IF PATIENTS OON INSURANCE OR SELF PAY COVERAGE HAS NOT BEEN CLEARED FOR REQUESTED APPOINTMENT. Scheduling: DELIA: As soon as insurance will allow What account will this PET appointment be linked to? P/F Type of PET: Oncology: Are there additional diagnostic CT scans required to be done at time of PET scan? No Is the request for a PET MR ? No What account will diagnostic testing appointment be linked to? P/F Will the patient need anesthesia? NO Send requests to P COORD REVIEW [facility] 07-08-2024 Instructions Reina Bridges - 07/08/2024 9:11 AM EST Dotatate PET when approved Hold next week's Sandostatin for scan RTC 1 week after scan to review Labs same day Plan for Sandostatin same day documented in this encounter [facility] 07-08-2024 History of Present illness Narrative Images from the original note were not included. NAME: Aisha Julien [facility] NO.: [id number] DATE OF SERVICE: July 08, 2024 (fior) Some elements in this clinic note that are critical to medical decision making have been carefully reviewed and included from a prior clinic note dated: June 03, 2024 ([place]) Referring Provider: Dr. 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 The patient is status post palliative GJ bypass on 10/29/2023 and presents for systemic therapy with SSA (Sandostatin). CT scan in January 2024 with improvement in disease. Symptoms remain stable overall except for a recent episode (April 2024) of syncope that was preceded by nausea. I am unsure if this is related to active disease versus single episode. Additionally has a 1.7 cm irregularly marginated nodular mass in the left apical lung that I'd like to get a PET scan for to delineate better. - PET showed non-avidity of this lesion in June 2024. Will hold sandostatin LAR and obtain Dotatate PET to evaluate concern for pancreatic progression as well as low grade left apical lesion. PLAN: Dotatate PET when approved Hold next week's Sandostatin for scan RTC 1 week after scan to review Labs same day Plan for Sandostatin same day HPI: CASE HISTORY: Reverse Chronological Order 06/03/2024 - PET/CT: HEAD/NECK: No evidence of FDG avid neoplastic process CHEST: Left apex nonhypermetabolic 1.7 cm nodule. Tissue sampling/follow-up imaging, the exclude a low metabolic rate neoplastic process, as clinically indicated - ACTIONABLE RESULT. No hypermetabolic/pathologic lymphadenopathy. ABDOMEN/PELVIS: Small area of increased uptake within the larger pancreatic body/uncinate findings described on the 05/13/[address] No focal abnormal uptake at the pancreas tail lesion. Correlation with pancreas MRI, tissue sampling, and/or Dotatate PET/CT, as clinically indicated. No hypermetabolic/pathologic lymphadenopathy. MUSCULOSKELETAL: 6.9 cm RIGHT gluteus carole presumed lipoma, mild uptake at the nodularity. Relation with MSK MRI, as clinically indicated. 9.6 cm RIGHT gluteal subcutaneous presumed hematoma. Based on the clinical history, further evaluation may be performed. No hypermetabolic osseous lesion. 06/03/2024 - Chromogranin A: 137.7 05/13/2024 - CT Chest & Pancreas/Pelvis: Chest: 1.7 cm irregularly marginated nodular mass at the left apex is appreciated, concerning for metastases. No substantial intrathoracic adenopathy is appreciated. A few scattered small osseous sclerotic foci are appreciated as above. Given the patient's history, the possibility of osseous metastases is not excluded. P/P: There is an overall stable appearance to peripancreatic metastatic nodules/adenopathy Extensive mesenteric and retroperitoneal adenopathy, not substantially changed. Arterial enhancement/thickening involving a short segment of the distal ileum, more conspicuous in appearance from the prior examination, which may relate to the patient's known primary carcinoid tumor. Adjacent partially calcified right lower quadrant adenopathy, relatively stable in appearance. Trace perihepatic and perisplenic ascites, the possibility of a peritoneal implant at the dome of the right lobe of the liver, unchanged. Stable appearance to severe narrowing/occlusion of the superior mesenteric vein secondary to anila metastases, stable appearance to significant narrowing of the splenic vein Diffuse osseous metastases is again suspected 05/13/2024 - Chromogranin A: 170.5 04/21/2024 - Chromogranin A: 161.1 03/24/2024 - Chromogranin A: 169.7 02/24/2024 - Chromogranin A: 187.8 02/18/2024 - CT Pancreas/Pelvis: Redemonstrated findings of the known extensive metastatic neuroendocrine neoplasm, with slight improvement seen compared to September 2023. Decrease in the length of the focally thickened segment of ileum in the right lower quadrant, at the site of the known primary ileal neuroendocrine tumor. An adjacent partially calcified right lower quadrant lymph node metastasis has decreased as well. Slight decrease in size of extensive mesenteric lymph node metastatic disease and retroperitoneal lymph node metastatic disease, with measurements provided above. Stable appearing infiltrative appearing neoplasm in the left anterior pararenal space of the retroperitoneum, and similar appearing possible intraperitoneal capsular implant along the dome of the liver. Stable appearance of numerous small sclerotic foci, likely indicating stable skeletal metastatic disease. Stable appearance of severe narrowing/occlusion of the [...] the right lower quadrant, similar to previously. 01/28/2024 - Chromogranin A: 136.4 12/03/2023 - Began Sandostatin LAR 10/29/2023 - Laparotomy, gastrojejunostomy (Bilroth II reconstruction), takedown of gastrocutaneous fistula, and placement of distal feeding tube 10/29/2023-11/07/2023 - Admitted at [facility] - observation after surgery 10/01/2023 - CT Pancreas/Pelvis: Metastatic neuroendocrine tumor with grossly stable, multifocal measurable disease from recent priors as detailed. Sclerotic osseous foci suspected metastatic and grossly unchanged. Percutaneous gastrojejunostomy remains in place, with mild proximal duodenal dilation, similar to recent prior. No gross interval gastric outlet obstruction otherwise. Minimal residual ascites, intervally improved. 09/02/2023 - CT Pancreas/Pelvis: Widespread metastatic disease as described related to the patient's known neuroendocrine tumor. Small volume abdominal ascites new since 08/28/2023. Right lower lobe opacities more confluent since prior. 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 Pancreatic uncinate neuroendocrine neoplasm and low-attenuation hepatic lesions are better evaluated on prior contrast-enhanced CT. Development of patchy ground glass opacities right lower lobe, likely pneumonia/aspiration. Diffusely heterogeneous osseous mineralization which could be related to osteopenia or infiltrative metastatic disease (and could be further differentiated with Dotatate PET-CT). 08/28/2023 - CT Brain: No CT evidence of acute intracranial process 08/28/2023 - CXR: No evidence of active disease. 08/28/2023-09/05/2023 - Admitted at [facility] - Patient sent by surgery with failure to thrive, concern for dehydration. 08/17/2023 - ECHO: EF: 58 08/14/2023 - PEG-J tube had moved out of place, repositioned by GI 08/13/2023 - PEG-J tube placed 08/13/2023 - Fine needle aspirations: A. Pancreas, uncinate mass, biopsy: -Well-differentiated neuroendocrine tumor, at least WHO grade 1 (Ki67 <3%) in this specimen. -Tumor cells are strongly positive for CAM5.2, synaptophysin, INSM1, and chromogranin supporting the above interpretation. B. Lymph node, biopsy: -Predominantly hemorrhage admixed with some lymphoid tissue and smooth muscle. -No evidence of neoplasm in this material. 08/08/2024 - CT Pancreas/Pelvis: Hypoenhancing mass involving the uncinate process of the pancreas and retroperitoneal lymphadenopathy. Suspect neoplasm. Two indeterminate hepatic hypodensities. 08/07/2023-08/17/2023 - Admitted at [facility] - Nausea & Vomiting: Sent by GI for weight loss and unable to keep anything down since June. 07/25/2023 - EGD with biopsy: - Duodenal mass - [facility] - Dr. Linder 07/24/2023 - CT A/P: at [facility] A mass is noted in the region of the third portion of the duodenum with associated obstruction of the stomach and proximal duodenum. The mass is difficult to measure but measures approximately 3.4 x 3.4 cm in greatest axial dimensions. There appears to be adjacent bulky lymphadenopathy involving the mesentery extending inferiorly some of which appears partially calcified. There also appears yto be left periaortic lymphadenopathy. It is difficult to say with certainty whether this mass arises from the small bowel or pancreas. Given the partially calcified lymphadenopathy a carcinoid tumor is suspected. Findings have progressed since prior study. Mesenteric engorgement is seen. Given the size of the mass, portal vein/SMV thrombosis cannot be excluded. 07/10/2023 - Presented to PCP with abdominal pain onset 1 week prior Updated Visit, July 08, 2024: Aisha returns for a follow up. He endorses recent flu-like symptoms: nausea, vomiting, diarrhea, cold chills, hot flashes. He says he has recovered now. I recommended visiting the ER for recurrent/worsening symptoms. PET/CT shows 1.7cm left apex nodule was nonhypermetabolic and small area of increased uptake in the pancreatic body. I will order a Dotatate PET/CT. Updated Visit, June 03, 2024: Aisha returns today and PET/CT images reviewed - awaiting radiology interp. Sample images noted below. Unclear what is showing up in the left gluteal region. He has a rash on both buttocks that is erythematous and scaly. Recommended diaper rash ointment. Updated Visit, May 20, 2024: Aisha returns today, doing well overall. CT Chest shows 1.7cm irregularly marginated mass at the left apex that is concerning for metastases. He endorses chemical exposure due to work. He was never a cigarette smoker, does smoke the occasional cigar and has a prior history of marijuana in the 70s. I will order a PET/CT to monitor. He reports a collapsed left lung after a fall a while back - I do not believe that is related to what is seen on current imaging. Pancreas/pelvis CT is overall stable. He is due to continue Sandostatin today. Anemia is stable, iron studies were normal last month. He had a syncopal episode at work recently, subsequently fell. He reports feeling nauseous prior to syncope. He was found to be hypotensive. He needs a release now to return to work, which I will complete for him. He had similar symptoms prior to his original diagnosis last year. Updated Visit, March 24, 2024: Aisha returns today for a follow up. He is tolerating Sandostatin well. His recent scan shows response to treatment. Continue Sandostatin today and q 4 weeks. Will repeat scans in 7 weeks and draw tumor markers. Updated Visit, February 24, 2024: Patient returns for follow up. CTs show improvement. Sandostatin LAR is going well. He denies any symptoms remains. He is eating well and having good bowel movements. Denies any current flushing or pain. Updated Visit, January 28, 2024: Aisha returns today for a follow up. He is tolerating Sandostatin LAR well with no complaints. He is able to eat more without nausea or vomiting. He has also been able to return to work. Hgb has improved to 12.3. Repeat CT pancreas/pelvis in 3 weeks, consider PET based on results for questionable bone mets. Proceed Sandostatin today. Initial Visit, December 03, 2023: Aisha Julien presents today for a Hematology and Oncology evaluation. He is a 68 year old male who was found to have a small bowel neuroendocrine tumor with metastases in 06/2023. He had an open GJ bypass on 10/28. He would like to start systemic therapy (Sandostatin) here in [place]. Incidents of nausea after eating got more frequent over the past two years prior to diagnosis. He has a PICC line currently, PEG-J tube did not work well for him. He is not in pain now, a little sore on site of stitches. Prior History from Dr. 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 The patient is status post palliative GJ bypass on 10/29/2023, recovering well. Updated History: Aisha Julien is a 68 year old male who underwent an open GJ bypass on 10/29/2023 for duodenal obstruction from metastatic SB-NET. He is recovering well without complications. He is tolerating PO intake and has normal BM. No nausea or emesis. Has been on FLD since discharge. Remains active and able to carry out his daily activities. No wound complications. Treatment Plan: Advance to regular diet as tolerated Once regular diet is tolerated, would recommend removing the PICC line since no TPN or IV hydration will be needed. Referral to medical oncology to consider systemic therapy (Sandostatin) Return to surgery clinic as needed REVIEW OF SYSTEMS Per HPI and otherwise negative by full review of organ systems. ECOG PERFORMANCE STATUS: 1 PHYSICAL EXAMINATION: Vitals: BP 150/77 Pulse 79 Temp (Src) 97.1 (Temporal) Resp 18 Wt 171 lb 11.8 oz (77.9kg) SpO2 100% Body surface area is 1.95 meters squared. Exam limited to gross visualization where appropriate. Gen.: This is an age-appropriate patient in no acute distress. Head: Appears atraumatic with no visible lesions. Eyes: Pupils equally round and reactive to light, extraocular muscles are intact. Neck: Supple. Respiratory: Appears to be respiring comfortably. Neurologic: Nonfocal to gross visualization. Alert and oriented 3. Psychiatric: No evidence of inappropriate anxiety or depression. Skin: Visible areas of skin without rash, lesions, wounds or petechiae. See HPI -06/03/2024 ALLERGIES: ALLERGIES No Known Allergies MEDICATIONS: losartan (COZAAR) 100 mg tablet Take 100 mg by mouth once daily. MULTIVITAMIN ORAL Take by mouth. finasteride (PROSCAR) 5 mg tablet Take 5 mg by mouth every other day. dilTIAZem CR (TIAZAC, TAZTIA XT) 180 mg 24 hr capsule Take 180 mg by mouth once daily. metoprolol succinate ER (TOPROL XL) 50 mg 24 hr tablet Take 50 mg by mouth once daily. LABORATORY VALUES: WBC (k/uL) Date Value 07/08/2024 5.32 RBC (m/uL) Date Value 07/08/2024 3.39 (L) Hemoglobin (g/dL) Date Value 07/08/2024 11.0 (L) Hematocrit (%) Date Value 07/08/2024 32.2 (L) MCV (fL) Date Value 07/08/2024 95.0 MCH (pg) Date Value 07/08/2024 32.4 MCHC (g/dL) Date Value 07/08/2024 34.2 RDW-CV (%) Date Value 07/08/2024 12.3 Platelet Count (k/uL) Date Value 07/08/2024 193 MPV (fL) Date Value 07/08/2024 10.7 Glucose (mg/dL) Date Value 07/08/2024 108 (H) BUN (mg/dL) Date Value 07/08/2024 25 (H) Creatinine (mg/dL) Date Value 07/08/2024 1.04 Sodium (mmol/L) Date Value 07/08/2024 135 (L) Potassium (mmol/L) Date Value 07/08/2024 4.4 Chloride (mmol/L) Date Value 07/08/2024 104 CO2 (mmol/L) Date Value 07/08/2024 20 (L) Protein, Total (g/dL) Date Value 07/08/2024 7.0 Albumin (g/dL) Date Value 07/08/2024 4.1 Calcium, Total (mg/dL) Date Value 07/08/2024 8.7 Alkaline Phosphatase (U/L) Date Value 07/08/2024 126 (H) Bilirubin, Total (mg/dL) Date Value 07/08/2024 0.5 AST (U/L) Date Value 07/08/2024 25 ALT (U/L) Date Value 07/08/2024 13 Triglyceride (mg/dL) Date Value 09/02/2023 70 DIAGNOSIS: (C7B.8) 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) (primary encounter diagnosis) Plan: NM PET/CT NEUROENDOCRINE WHOLE BODY IMAGING (R91.8) Lung mass Plan: NM PET/CT NEUROENDOCRINE WHOLE BODY IMAGING PAST MEDICAL HISTORY Diagnosis Date Essential hypertension GERD (gastroesophageal reflux disease) PAST SURGICAL HISTORY Procedure Laterality Date ARTHROSCOPY KNEE DIAGNOSTIC W/WO SYNOVIAL BX SPX Bilateral states x3 COLONOSCOPY DIAGNOSTIC 2022 no polyps EGD DIAGNOSTIC 08/14/2023 PAST SURGICAL HISTORY OF 1965 tonsilectomy Social History Tobacco Use Smoking status: Never Smokeless tobacco: Never Vaping Use Vaping status: Former Substance Use Topics Alcohol use: Yes Comment: a few beers per day Drug use: Not Currently FAMILY HISTORY Problem Relation Age of Onset Uterine Cancer Mother other (bile duct cancer) Sister Colon Cancer No Family History I spent a total of 30 minutes on the date of service which included preparing to see the patient, [id number] patient care, completing clinical documentation, performing a medically appropriate examination, counseling and educating the patient/family/caregiver, ordering medications, tests, or procedures, independently interpreting results (not separately reported), communicating results to the patient/family/caregiver, and care coordination (not separately reported). Roselyn Leonard MD, CPE Hematology and Oncology Services Provided at: [place], [place] Scribe Attestation: This note was scribed by Reina Bridges on July 08, 2024 under the direction and supervision of Dr. Roselyn Leonard. I attest that all of the information documented is correct to the best of my knowledge. Provider Attestation: I, Roselyn Leonard MD, attest that all information documented by the above scribe is correct, and was supervised by me and under my direction. CC: Cleveland Alberts [address] [facility] [address] Rene Cannon MD, MD [address] [facility] [id number] documented in this encounter [facility] 07-08-2024 Note [facility] 06-03-2024 Telephone encounter Note Shruti Butcher to call final pet scan results per Dr Henry. [facility] 06-03-2024 Miscellaneous Notes Alma Butcher to call final pet scan results per Dr Reyes documented in this encounter [facility] 06-03-2024 Instructions Roselyn Leonard MD - 06/03/2024 3:54 PM EDT Shruti Butcher please call final result of PET/CT Continue Sandostatin LAR next on 06/17/2024 and q 4 weeks RTC 07/15/2024 labs same day. documented in this encounter [facility] 06-03-2024 History of Present illness Narrative Images from the original note were not included. NAME: Aisha Julien [facility] NO.: [id number] DATE OF SERVICE: June 03, 2024 (Raoul) Some elements in this clinic note that are critical to medical decision making have been carefully reviewed and included from a prior clinic note dated: May 20, 2024 (Raoul) Referring Provider: Dr. 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 The patient is status post palliative GJ bypass on 10/29/2023 and presents for systemic therapy with SSA (Sandostatin). CT scan in January 2024 with improvement in disease. Symptoms remain stable overall except for a recent episode (April 2024) of syncope that was preceded by nausea. I am unsure if this is related to active disease versus single episode. Additionally has a 1.7 cm irregularly marginated nodular mass in the left apical lung that had like to get a PET scan for to delineate better. PLAN: Shruti Butcher please call final result of PET/CT Continue Sandostatin LAR next on 06/17/2024 and q 4 weeks RTC 07/15/2024 labs same day. HPI: CASE HISTORY: Reverse Chronological Order 06/03/2024 - PET/CT: Final reading in process 05/13/2024 - CT Chest & Pancreas/Pelvis: Chest: 1.7 cm irregularly marginated nodular mass at the left apex is appreciated, concerning for metastases. No substantial intrathoracic adenopathy is appreciated. A few scattered small osseous sclerotic foci are appreciated as above. Given the patient's history, the possibility of osseous metastases is not excluded. P/P: There is an overall stable appearance to peripancreatic metastatic nodules/adenopathy Extensive mesenteric and retroperitoneal adenopathy, not substantially changed. Arterial enhancement/thickening involving a short segment of the distal ileum, more conspicuous in appearance from the prior examination, which may relate to the patient's known primary carcinoid tumor. Adjacent partially calcified right lower quadrant adenopathy, relatively stable in appearance. Trace perihepatic and perisplenic ascites, the possibility of a peritoneal implant at the dome of the right lobe of the liver, unchanged. Stable appearance to severe narrowing/occlusion of the superior mesenteric vein secondary to anila metastases, stable appearance to significant narrowing of the splenic vein Diffuse osseous metastases is again suspected 05/13/2024 - Chromogranin A: 170.5 04/21/2024 - Chromogranin A: 161.1 03/24/2024 - Chromogranin A: 169.7 02/24/2024 - Chromogranin A: 187.8 02/18/2024 - CT Pancreas/Pelvis: Redemonstrated findings of the known extensive metastatic neuroendocrine neoplasm, with slight improvement seen compared to September 2023. Decrease in the length of the focally thickened segment of ileum in the right lower quadrant, at the site of the known primary ileal neuroendocrine tumor. An adjacent partially calcified right lower quadrant lymph node metastasis has decreased as well. Slight decrease in size of extensive mesenteric lymph node metastatic disease and retroperitoneal lymph node metastatic disease, with measurements provided above. Stable appearing infiltrative appearing neoplasm in the left anterior pararenal space of the retroperitoneum, and similar appearing possible intraperitoneal capsular implant along the dome of the liver. Stable appearance of numerous small sclerotic foci, likely indicating stable skeletal metastatic disease. Stable appearance of severe narrowing/occlusion of the [...] the right lower quadrant, similar to previously. 01/28/2024 - Chromogranin A: 136.4 12/03/2023 - Began Sandostatin LAR 10/29/2023 - Laparotomy, gastrojejunostomy (Bilroth II reconstruction), takedown of gastrocutaneous fistula, and placement of distal feeding tube 10/29/2023-11/07/2023 - Admitted at [facility] - observation after surgery 10/01/2023 - CT Pancreas/Pelvis: Metastatic neuroendocrine tumor with grossly stable, multifocal measurable disease from recent priors as detailed. Sclerotic osseous foci suspected metastatic and grossly unchanged. Percutaneous gastrojejunostomy remains in place, with mild proximal duodenal dilation, similar to recent prior. No gross interval gastric outlet obstruction otherwise. Minimal residual ascites, intervally improved. 09/02/2023 - CT Pancreas/Pelvis: Widespread metastatic disease as described related to the patient's known neuroendocrine tumor. Small volume abdominal ascites new since 08/28/2023. Right lower lobe opacities more confluent since prior. 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 Pancreatic uncinate neuroendocrine neoplasm and low-attenuation hepatic lesions are better evaluated on prior contrast-enhanced CT. Development of patchy ground glass opacities right lower lobe, likely pneumonia/aspiration. Diffusely heterogeneous osseous mineralization which could be related to osteopenia or infiltrative metastatic disease (and could be further differentiated with Dotatate PET-CT). 08/28/2023 - CT Brain: No CT evidence of acute intracranial process 08/28/2023 - CXR: No evidence of active disease. 08/28/2023-09/05/2023 - Admitted at [facility] - Patient sent by surgery with failure to thrive, concern for dehydration. 08/17/2023 - ECHO: EF: 58 08/14/2023 - PEG-J tube had moved out of place, repositioned by GI 08/13/2023 - PEG-J tube placed 08/13/2023 - Fine needle aspirations: A. Pancreas, uncinate mass, biopsy: -Well-differentiated neuroendocrine tumor, at least WHO grade 1 (Ki67 <3%) in this specimen. -Tumor cells are strongly positive for CAM5.2, synaptophysin, INSM1, and chromogranin supporting the above interpretation. B. Lymph node, biopsy: -Predominantly hemorrhage admixed with some lymphoid tissue and smooth muscle. -No evidence of neoplasm in this material. 08/08/2024 - CT Pancreas/Pelvis: Hypoenhancing mass involving the uncinate process of the pancreas and retroperitoneal lymphadenopathy. Suspect neoplasm. Two indeterminate hepatic hypodensities. 08/07/2023-08/17/2023 - Admitted at [facility] - Nausea & Vomiting: Sent by GI for weight loss and unable to keep anything down since June. 07/25/2023 - EGD with biopsy: - Duodenal mass - [facility] - Dr. Linder. 07/24/2023 - CT A/P: at [facility] A mass is noted in the region of the third portion of the duodenum with associated obstruction of the stomach and proximal duodenum. The mass is difficult to measure but measures approximately 3.4 x 3.4 cm in greatest axial dimensions. There appears to be adjacent bulky lymphadenopathy involving the mesentery extending inferiorly some of which appears partially calcified. There also appears yto be left periaortic lymphadenopathy. It is difficult to say with certainty whether this mass arises from the small bowel or pancreas. Given the partially calcified lymphadenopathy a carcinoid tumor is suspected. Findings have progressed since prior study. Mesenteric engorgement is seen. Given the size of the mass, portal vein/SMV thrombosis cannot be excluded. 07/10/2023 - Presented to PCP with abdominal pain onset 1 week prior Updated Visit, June 03, 2024: Aisha returns today and PET/CT images reviewed - awaiting radiology interp. Sample images noted below. Unclear what is showing up in the left gluteal region. He has a rash on both buttocks that is erythematous and scaly. Recommended diaper rash ointment. Updated Visit, May 20, 2024: Aisha returns today, doing well overall. CT Chest shows 1.7cm irregularly marginated mass at the left apex that is concerning for metastases. He endorses chemical exposure due to work. He was never a cigarette smoker, does smoke the occasional cigar and has a prior history of marijuana in the 70s. I will order a PET/CT to monitor. He reports a collapsed left lung after a fall a while back - I do not believe that is related to what is seen on current imaging. Pancreas/pelvis CT is overall stable. He is due to continue Sandostatin today. Anemia is stable, iron studies were normal last month. He had a syncopal episode at work recently, subsequently fell. He reports feeling nauseous prior to syncope. He was found to be hypotensive. He needs a release now to return to work, which I will complete for him. He had similar symptoms prior to his original diagnosis last year. Updated Visit, March 24, 2024: Aisha returns today for a follow up. He is tolerating Sandostatin well. His recent scan shows response to treatment. Continue Sandostatin today and q 4 weeks. Will repeat scans in 7 weeks and draw tumor markers. Updated Visit, February 24, 2024: Patient returns for follow up. CTs show improvement. Sandostatin LAR is going well. He denies any symptoms remains. He is eating well and having good bowel movements. Denies any current flushing or pain. Updated Visit, January 28, 2024: Aisha returns today for a follow up. He is tolerating Sandostatin LAR well with no complaints. He is able to eat more without nausea or vomiting. He has also been able to return to work. Hgb has improved to 12.3. Repeat CT pancreas/pelvis in 3 weeks, consider PET based on results for questionable bone mets. Proceed Sandostatin today. Initial Visit, December 03, 2023: Aisha Julien presents today for a Hematology and Oncology evaluation. He is a 68 year old male who was found to have a small bowel neuroendocrine tumor with metastases in 06/2023. He had an open GJ bypass on 10/28. He would like to start systemic therapy (Sandostatin) here in [place]. Incidents of nausea after eating got more frequent over the past two years prior to diagnosis. He has a PICC line currently, PEG-J tube did not work well for him. He is not in pain now, a little sore on site of stitches. Prior History from Dr. 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 The patient is status post palliative GJ bypass on 10/29/2023, recovering well. Updated History: Aisha Julien is a 68 year old male who underwent an open GJ bypass on 10/29/2023 for duodenal obstruction from metastatic SB-NET. He is recovering well without complications. He is tolerating PO intake and has normal BM. No nausea or emesis. Has been on FLD since discharge. Remains active and able to carry out his daily activities. No wound complications. Treatment Plan: Advance to regular diet as tolerated Once regular diet is tolerated, would recommend removing the PICC line since no TPN or IV hydration will be needed. Referral to medical oncology to consider systemic therapy (Sandostatin) Return to surgery clinic as needed REVIEW OF SYSTEMS Per HPI and otherwise negative by full review of organ systems. ECOG PERFORMANCE STATUS: 1 PHYSICAL EXAMINATION: Vitals: Resp 16 Ht 5' 9.488 (1.77m) Body surface area is 1.94 meters squared. Exam limited to gross visualization where appropriate. Gen.: This is an age-appropriate patient in no acute distress. Head: Appears atraumatic with no visible lesions. Eyes: Pupils equally round and reactive to light, extraocular muscles are intact. Neck: Supple. Respiratory: Appears to be respiring comfortably. Neurologic: Nonfocal to gross visualization. Alert and oriented 3. Psychiatric: No evidence of inappropriate anxiety or depression. Skin: Visible areas of skin without rash, lesions, wounds or petechiae. See HPI -06/03/2024 ALLERGIES: ALLERGIES No Known Allergies MEDICATIONS: dilTIAZem CR (TIAZAC, TAZTIA XT) 180 mg 24 hr capsule Take 180 mg by mouth once daily. losartan (COZAAR) 100 mg tablet Take 100 mg by mouth once daily. metoprolol succinate ER (TOPROL XL) 50 mg 24 hr tablet Take 50 mg by mouth once daily. MULTIVITAMIN ORAL Take by mouth. finasteride (PROSCAR) 5 mg tablet Take 5 mg by mouth every other day. LABORATORY VALUES: WBC (k/uL) Date Value 06/03/2024 4.82 RBC (m/uL) Date Value 06/03/2024 3.88 (L) Hemoglobin (g/dL) Date Value 06/03/2024 12.5 (L) Hematocrit (%) Date Value 06/03/2024 37.1 (L) MCV (fL) Date Value 06/03/2024 95.6 MCH (pg) Date Value 06/03/2024 32.2 MCHC (g/dL) Date Value 06/03/2024 33.7 RDW-CV (%) Date Value 06/03/2024 13.1 Platelet Count (k/uL) Date Value 06/03/2024 254 MPV (fL) Date Value 06/03/2024 10.2 Glucose (mg/dL) Date Value 06/03/2024 100 (H) BUN (mg/dL) Date Value 06/03/2024 12 Creatinine (mg/dL) Date Value 06/03/2024 0.91 Sodium (mmol/L) Date Value 06/03/2024 141 Potassium (mmol/L) Date Value 06/03/2024 5.1 Chloride (mmol/L) Date Value 06/03/2024 103 CO2 (mmol/L) Date Value 06/03/2024 24 Protein, Total (g/dL) Date Value 06/03/2024 7.2 Albumin (g/dL) Date Value 06/03/2024 4.5 Calcium, Total (mg/dL) Date Value 06/03/2024 9.0 Alkaline Phosphatase (U/L) Date Value 06/03/2024 135 (H) Bilirubin, Total (mg/dL) Date Value 06/03/2024 0.9 AST (U/L) Date Value 05/13/2024 30 ALT (U/L) Date Value 06/03/2024 13 Triglyceride (mg/dL) Date Value 09/02/2023 70 DIAGNOSIS: (C7B.8) 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) (primary encounter diagnosis) (R91.8) Lung mass (T14.90XA) Soft tissue injury PAST MEDICAL HISTORY Diagnosis Date Essential hypertension GERD (gastroesophageal reflux disease) PAST SURGICAL HISTORY Procedure Laterality Date ARTHROSCOPY KNEE DIAGNOSTIC W/WO SYNOVIAL BX SPX Bilateral states x3 COLONOSCOPY DIAGNOSTIC 2021 no polyps EGD DIAGNOSTIC 08/14/2023 PAST SURGICAL HISTORY OF 1965 tonsilectomy Social History Tobacco Use Smoking status: Never Smokeless tobacco: Never Vaping Use Vaping status: Former Substance Use Topics Alcohol use: Yes Comment: a few beers per day Drug use: Not Currently FAMILY HISTORY Problem Relation Age of Onset Uterine Cancer Mother other (bile duct cancer) Sister Colon Cancer No Family History I spent a total of 30 minutes on the date of service which included preparing to see the patient, [id number] patient care, completing clinical documentation, performing a medically appropriate examination, counseling and educating the patient/family/caregiver, ordering medications, tests, or procedures, independently interpreting results (not separately reported), communicating results to the patient/family/caregiver, and care coordination (not separately reported). Roselyn Leonard MD, CPE Hematology and Oncology Services Provided at: [place], [place] Scribe Attestation: This note was scribed by Reina Bridges on June 03, 2024 under the direction and supervision of Dr. Roselyn Leonard. I attest that all of the information documented is correct to the best of my knowledge. Provider Attestation: I, Roselyn Leonard MD, attest that all information documented by the above scribe is correct, and was supervised by me and under my direction. CC: Cleveland Alberts [address] [facility] [address] Rene Cannon MD, MD [address] [facility] [phone] documented in this encounter [facility] 06-03-2024 Note [facility] 06-03-2024 History of Present illness Narrative Radiology Service Progress Note DATE OF SERVICE: June 03, 2024 TIME: 12:59 PM PATIENT IDENTITY VERIFICATION COMPLETED USING TWO (2) STANDARD IDENTIFIERS: Name and Date of confirmed by patient verbally. FALL SCREENING: Has the patient had 2 falls in the last year or 1 fall with injury or currently using an Ambulatory Assistive Device (Walker, Cane, Wheelchair, Crutches, etc.)? No PATIENT GENDER DATA: Male EXAM: CT -CONTRAST INDUCED NEPHROPATHY RISK FACTORS: Not applicable CREATININE: Creatinine Date Value Ref Range Status 05/13/2024 1.12 0.73 - 1.22 mg/dL Final 04/21/2024 1.08 0.73 - 1.22 mg/dL Final 03/24/2024 1.17 0.73 - 1.22 mg/dL Final Estimated Glomerular Filtration Rate Date Value Ref Range Status 05/13/2024 72 >=60 mL/min/1.73m Final Comment: Estimated Glomerular Filtration Rate (eGFR) [...] RESULTS: POC done: Yes, See Lab Tab June 03, 2024 TREATMENT: N/A IV SITE: Ambulatory: A peripheral IV was started in the Right forearm with a Angio cath: 22 gauge. IV SITE APPEARANCE: Clean,Dry and Intact SIGNATURE: Solange Harmon RN PATIENT NAME: Aisha Julien DATE: June 03, 2024 TIME: 12:59 PM RADIOLOGY SERVICE PROGRESS NOTE SERVICE DATE: 06/03/2024 SERVICE TIME: 1:01 PM PATIENT IDENTITY VERIFICATION COMPLETED USING TWO (2) STANDARD IDENTIFIERS: Name and Date of confirmed by patient verbally POST EXAM PIV STATUS: Discontinued PROCEDURE TYPE: NM INJECT: PET/CT WHOLE BODY SCAN. 9.6 mCi F18 FDG. No other medications given.. ADMINISTRATION TIME: 99 PATIENT DISCHARGED TO: Ambulatory patient, left MI department area. A Diagnostic radioactive procedure has taken place, with no further precautions necessary other than routine body substance precautions. More information regarding radiation safety can be found using this link: [email or web address] SIGNATURE: RT Norman(R) PATIENT NAME: Aisha Julien DATE: June 03, 2024 TIME: 1:01 PM PAGER/CONTACT #: documented in this encounter [facility] 06-03-2024 Note [facility] 06-03-2024 Note [facility] 05-20-2024 Instructions Reina Bridges - 05/20/2024 8:57 AM EDT Whole body PET/CT in 1-2 weeks RTC same day Continue with Sandostatin LAR today and q 4 weeks Labs prior to treatment documented in this encounter [facility] 05-20-2024 Nurse Note Patient states that he got light headed and dizzy at work the medical did check blood pressure, it was low. Catalina White MA [facility] 05-20-2024 Nurse Note Patient states that he got light headed and dizzy at work the medical did check blood pressure, it was low. Catalina White MA documented in this encounter [facility] 05-20-2024 History of Present illness Narrative Images from the original note were not included. NAME: Aisha Julien CLINIC NO.: [id number] DATE OF SERVICE: May 20, 2024 (fior) Some elements in this clinic note that are critical to medical decision making have been carefully reviewed and included from a prior clinic note dated: March 24, 2024 (Raoul) Referring Provider: Dr. 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 The patient is status post palliative GJ bypass on 10/29/2023 and presents for systemic therapy with SSA (Sandostatin). CT scan in January 2024 with improvement in disease. Symptoms remain stable overall except for a recent episode (April 2024) of syncope that was preceded by nausea. I am unsure if this is related to active disease versus single episode. Additionally has a 1.7 cm irregularly marginated nodular mass in the left apical lung that had like to get a PET scan for to delineate better. PLAN: Whole body PET/CT in 1-2 weeks RTC same day Continue with Sandostatin LAR today and q 4 weeks Labs prior to treatment HPI: CASE HISTORY: Reverse Chronological Order 05/13/2024 - CT Chest & Pancreas/Pelvis: Chest: 1.7 cm irregularly marginated nodular mass at the left apex is appreciated, concerning for metastases. No substantial intrathoracic adenopathy is appreciated. A few scattered small osseous sclerotic foci are appreciated as above. Given the patient's history, the possibility of osseous metastases is not excluded. P/P: There is an overall stable appearance to peripancreatic metastatic nodules/adenopathy Extensive mesenteric and retroperitoneal adenopathy, not substantially changed. Arterial enhancement/thickening involving a short segment of the distal ileum, more conspicuous in appearance from the prior examination, which may relate to the patient's known primary carcinoid tumor. Adjacent partially calcified right lower quadrant adenopathy, relatively stable in appearance. Trace perihepatic and perisplenic ascites, the possibility of a peritoneal implant at the dome of the right lobe of the liver, unchanged. Stable appearance to severe narrowing/occlusion of the superior mesenteric vein secondary to anila metastases, stable appearance to significant narrowing of the splenic vein Diffuse osseous metastases is again suspected 05/13/2024 - Chromogranin A: 170.5 04/21/2024 - Chromogranin A: 161.1 03/24/2024 - Chromogranin A: 169.7 02/24/2024 - Chromogranin A: 187.8 02/18/2024 - CT Pancreas/Pelvis: Redemonstrated findings of the known extensive metastatic neuroendocrine neoplasm, with slight improvement seen compared to September 2023. Decrease in the length of the focally thickened segment of ileum in the right lower quadrant, at the site of the known primary ileal neuroendocrine tumor. An adjacent partially calcified right lower quadrant lymph node metastasis has decreased as well. Slight decrease in size of extensive mesenteric lymph node metastatic disease and retroperitoneal lymph node metastatic disease, with measurements provided above. Stable appearing infiltrative appearing neoplasm in the left anterior pararenal space of the retroperitoneum, and similar appearing possible intraperitoneal capsular implant along the dome of the liver. Stable appearance of numerous small sclerotic foci, likely indicating stable skeletal metastatic disease. Stable appearance of severe narrowing/occlusion of the [...] the right lower quadrant, similar to previously. 01/28/2024 - Chromogranin A: 136.4 12/03/2023 - Began Sandostatin LAR 10/29/2023 - Laparotomy, gastrojejunostomy (Bilroth II reconstruction), takedown of gastrocutaneous fistula, and placement of distal feeding tube 10/29/2023-11/07/2023 - Admitted at [facility] - observation after surgery 10/01/2023 - CT Pancreas/Pelvis: Metastatic neuroendocrine tumor with grossly stable, multifocal measurable disease from recent priors as detailed. Sclerotic osseous foci suspected metastatic and grossly unchanged. Percutaneous gastrojejunostomy remains in place, with mild proximal duodenal dilation, similar to recent prior. No gross interval gastric outlet obstruction otherwise. Minimal residual ascites, intervally improved. 09/02/2023 - CT Pancreas/Pelvis: Widespread metastatic disease as described related to the patient's known neuroendocrine tumor. Small volume abdominal ascites new since 08/28/2023. Right lower lobe opacities more confluent since prior. 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 Pancreatic uncinate neuroendocrine neoplasm and low-attenuation hepatic lesions are better evaluated on prior contrast-enhanced CT. Development of patchy ground glass opacities right lower lobe, likely pneumonia/aspiration. Diffusely heterogeneous osseous mineralization which could be related to osteopenia or infiltrative metastatic disease (and could be further differentiated with [facility] PET-CT). 08/28/2023 - CT Brain: No CT evidence of acute intracranial process 08/28/2023 - CXR: No evidence of active disease. 08/28/2023-09/05/2023 - Admitted at [facility] - Patient sent by surgery with failure to thrive, concern for dehydration. 08/17/2023 - ECHO: EF: 58 08/14/2023 - PEG-J tube had moved out of place, repositioned by GI 08/13/2023 - PEG-J tube placed 08/13/2023 - Fine needle aspirations: A. Pancreas, uncinate mass, biopsy: -Well-differentiated neuroendocrine tumor, at least WHO grade 1 (Ki67 <3%) in this specimen. -Tumor cells are strongly positive for CAM5.2, synaptophysin, INSM1, and chromogranin supporting the above interpretation. B. Lymph node, biopsy: -Predominantly hemorrhage admixed with some lymphoid tissue and smooth muscle. -No evidence of neoplasm in this material. 08/08/2024 - CT Pancreas/Pelvis: Hypoenhancing mass involving the uncinate process of the pancreas and retroperitoneal lymphadenopathy. Suspect neoplasm. Two indeterminate hepatic hypodensities. 08/07/2023-08/17/2023 - Admitted at [facility] - Nausea & Vomiting: Sent by GI for weight loss and unable to keep anything down since June. 07/25/2023 - EGD with biopsy: - Duodenal mass - [facility] - Dr. Linder. 07/24/2023 - CT A/P: at [facility] A mass is noted in the region of the third portion of the duodenum with associated obstruction of the stomach and proximal duodenum. The mass is difficult to measure but measures approximately 3.4 x 3.4 cm in greatest axial dimensions. There appears to be adjacent bulky lymphadenopathy involving the mesentery extending inferiorly some of which appears partially calcified. There also appears yto be left periaortic lymphadenopathy. It is difficult to say with certainty whether this mass arises from the small bowel or pancreas. Given the partially calcified lymphadenopathy a carcinoid tumor is suspected. Findings have progressed since prior study. Mesenteric engorgement is seen. Given the size of the mass, portal vein/SMV thrombosis cannot be excluded. 07/10/2023 - Presented to PCP with abdominal pain onset 1 week prior Updated Visit, May 20, 2024: Aisha returns today, doing well overall. CT Chest shows 1.7cm irregularly marginated mass at the left apex that is concerning for metastases. He endorses chemical exposure due to work. He was never a cigarette smoker, does smoke the occasional cigar and has a prior history of marijuana in the 70s. I will order a PET/CT to monitor. He reports a collapsed left lung after a fall a while back - I do not believed that is related to what is seen on current imaging. Pancreas/pelvis CT is overall stable. He is due to continue Sandostatin today. Anemia is stable, iron studies were normal last month. He had a syncopal episode at work recently, subsequently fell. He reports feeling nauseous prior to syncope. He was found to be hypotensive. He needs a release now to return to work, which I will complete for him. He had similar symptoms prior to his original diagnosis last year. Updated Visit, March 24, 2024: Aisha returns today for a follow up. He is tolerating Sandostatin well. His recent scan shows response to treatment. Continue Sandostatin today and q 4 weeks. Will repeat scans in 7 weeks and draw tumor markers. Updated Visit, February 24, 2024: Patient returns for follow up. CTs show improvement. Sandostatin LAR is going well. He denies any symptoms remains. He is eating well and having good bowel movements. Denies any current flushing or pain. Updated Visit, January 28, 2024: Aisha returns today for a follow up. He is tolerating Sandostatin LAR well with no complaints. He is able to eat more without nausea or vomiting. He has also been able to return to work. Hgb has improved to 12.3. Repeat CT pancreas/pelvis in 3 weeks, consider PET based on results for questionable bone mets. Proceed Sandostatin today. Initial Visit, December 03, 2023: Aisha Jluien presents today for a Hematology and Oncology evaluation. He is a 68 year old male who was found to have a small bowel neuroendocrine tumor with metastases in 06/2023. He had an open GJ bypass on 10/28. He would like to start systemic therapy (Sandostatin) here in [place]. Incidents of nausea after eating got more frequent over the past two years prior to diagnosis. He has a PICC line currently, PEG-J tube did not work well for him. He is not in pain now, a little sore on site of stitches. Prior History from Dr. 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 The patient is status post palliative GJ bypass on 10/29/2023, recovering well. Updated History: Aisha Julien is a 68 year old male who underwent an open GJ bypass on 10/29/2023 for duodenal obstruction from metastatic SB-NET. He is recovering well without complications. He is tolerating PO intake and has normal BM. No nausea or emesis. Has been on FLD since discharge. Remains active and able to carry out his daily activities. No wound complications. Treatment Plan: Advance to regular diet as tolerated Once regular diet is tolerated, would recommend removing the PICC line since no TPN or IV hydration will be needed. Referral to medical oncology to consider systemic therapy (Sandostatin) Return to surgery clinic as needed REVIEW OF SYSTEMS Per HPI and otherwise negative by full review of organ systems. ECOG PERFORMANCE STATUS: 1 PHYSICAL EXAMINATION: Vitals: BP 132/85 Pulse 78 Temp (Src) 97.3 (Temporal) Resp 18 Ht 5' 9.488 (1.77m) Wt 170 lb (77.1kg) SpO2 100% BMI 24.75 kg/(m^2). Body surface area is 1.94 meters squared. Exam limited to gross visualization where appropriate. Gen.: This is an age-appropriate patient in no acute distress. Head: Appears atraumatic with no visible lesions. Eyes: Pupils equally round and reactive to light, extraocular muscles are intact. Neck: Supple. Respiratory: Appears to be respiring comfortably. Neurologic: Nonfocal to gross visualization. Alert and oriented 3. Psychiatric: No evidence of inappropriate anxiety or depression. Skin: Visible areas of skin without rash, lesions, wounds or petechiae. ALLERGIES: ALLERGIES No Known Allergies MEDICATIONS: dilTIAZem CR (TIAZAC, TAZTIA XT) 180 mg 24 hr capsule Take 180 mg by mouth once daily. losartan (COZAAR) 100 mg tablet Take 100 mg by mouth once daily. metoprolol succinate ER (TOPROL XL) 50 mg 24 hr tablet Take 50 mg by mouth once daily. MULTIVITAMIN ORAL Take by mouth. finasteride (PROSCAR) 5 mg tablet Take 5 mg by mouth every other day. LABORATORY VALUES: WBC (k/uL) Date Value 05/13/2024 3.86 RBC (m/uL) Date Value 05/13/2024 3.71 (L) Hemoglobin (g/dL) Date Value 05/13/2024 11.7 (L) Hematocrit (%) Date Value 05/13/2024 34.9 (L) MCV (fL) Date Value 05/13/2024 94.1 MCH (pg) Date Value 05/13/2024 31.5 MCHC (g/dL) Date Value 05/13/2024 33.5 RDW-CV (%) Date Value 05/13/2024 12.6 Platelet Count (k/uL) Date Value 05/13/2024 187 MPV (fL) Date Value 05/13/2024 10.0 Glucose (mg/dL) Date Value 05/13/2024 91 BUN (mg/dL) Date Value 05/13/2024 13 Creatinine (mg/dL) Date Value 05/13/2024 1.12 Sodium (mmol/L) Date Value 05/13/2024 133 (L) Potassium (mmol/L) Date Value 05/13/2024 4.6 Chloride (mmol/L) Date Value 05/13/2024 101 CO2 (mmol/L) Date Value 05/13/2024 20 (L) Protein, Total (g/dL) Date Value 05/13/2024 7.1 Albumin (g/dL) Date Value 05/13/2024 4.4 Calcium, Total (mg/dL) Date Value 05/13/2024 8.9 Alkaline Phosphatase (U/L) Date Value 05/13/2024 122 (H) Bilirubin, Total (mg/dL) Date Value 05/13/2024 0.5 AST (U/L) Date Value 05/13/2024 30 ALT (U/L) Date Value 05/13/2024 14 Triglyceride (mg/dL) Date Value 09/02/2023 70 DIAGNOSIS: (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) (primary encounter diagnosis) Plan: NM PET/CT WHOLE BODY SUBSEQUENT (C7B.8) 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) Plan: NM PET/CT WHOLE BODY SUBSEQUENT (R91.8) Lung mass Plan: NM PET/CT WHOLE BODY SUBSEQUENT (M89.9) Bone lesion Plan: NM PET/CT WHOLE BODY SUBSEQUENT PAST MEDICAL HISTORY Diagnosis Date Essential hypertension GERD (gastroesophageal reflux disease) PAST SURGICAL HISTORY Procedure Laterality Date ARTHROSCOPY KNEE DIAGNOSTIC W/WO SYNOVIAL BX SPX Bilateral states x3 COLONOSCOPY DIAGNOSTIC 2021 no polyps EGD DIAGNOSTIC 08/14/2023 PAST SURGICAL HISTORY OF 1965 tonsilectomy Social History Tobacco Use Smoking status: Never Smokeless tobacco: Never Vaping Use Vaping status: Former Substance Use Topics Alcohol use: Yes Comment: a few beers per day Drug use: Not Currently FAMILY HISTORY Problem Relation Age of Onset Uterine Cancer Mother other (bile duct cancer) Sister Colon Cancer No Family History I spent a total of 40 minutes on the date of service which included preparing to see the patient, [id number] patient care, completing clinical documentation, performing a medically appropriate examination, counseling and educating the patient/family/caregiver, ordering medications, tests, or procedures, independently interpreting results (not separately reported), communicating results to the patient/family/caregiver, and care coordination (not separately reported). Roselyn Leonard MD, CPE Hematology and Oncology Services Provided at: [place], [place] Scribe Attestation: This note was scribed by Reina Bridges on May 20, 2024 under the direction and supervision of Dr. Roselyn Leonard. I attest that all of the information documented is correct to the best of my knowledge. Provider Attestation: I, Roselyn Leonard MD, attest that all information documented by the above scribe is correct, and was supervised by me and under my direction. CC: Cleveland Alberts [id number] [facility] [id number] Rene Cannon MD, MD [address] [facility] [id number] documented in this encounter [facility] 05-20-2024 Note [facility] 05-13-2024 History of Present illness Narrative Radiology Service Progress Note PATIENT NAME: Aisha Julien DATE OF SERVICE: May 13, 2024 TIME: 8:19 AM PATIENT IDENTITY VERIFICATION COMPLETED USING TWO (2) IDENTIFIERS: Name and Date of confirmed by patient verbally. FALL SCREENING: Has the patient had 2 falls in the last year or 1 fall with injury or currently using an Ambulatory Assistive Device (Walker, Cane, Wheelchair, Crutches, etc.)? No PATIENT GENDER DATA: Male PATIENT RELEVANT IMPLANT DATA REVIEWED: Not Applicable PATIENT PRESENTS WITH AN IMPLANTABLE OR ATTACHED SALVAGE DETERMINER: No RADIOLOGY DEPARTMENT: CT; Exam(s) Completed: Chest and Pancreas PERIPHERAL IV DATA: Site assessment: Clean,Dry and Intact, Site disposition Discontinued 20g left ac SIGNED BY: RT Saundra(R) May 13, 2024 8:19 AM Radiology Service Progress Note DATE OF SERVICE: May 13, 2024 TIME: 8:45 AM PATIENT WEIGHT: 171LBS PATIENT IDENTITY VERIFICATION COMPLETED USING TWO (2) [...] CREATININE: Creatinine Date Value Ref Range Status 04/21/2024 1.08 0.73 - 1.22 mg/dL Final 03/24/2024 1.17 0.73 - 1.22 mg/dL Final 02/24/2024 1.10 0.73 - 1.22 mg/dL Final Estimated Glomerular Filtration Rate Date Value Ref Range Status 04/21/2024 75 >=60 mL/min/1.73m Final Comment: Estimated Glomerular Filtration Rate (eGFR) [...] RESULTS: POC done: Yes, See Lab Tab May 13, 2024 TREATMENT: N/A IV SITE: Ambulatory: A peripheral IV was started in the Left antecubital site with a Angio cath: 20 gauge. IV SITE APPEARANCE: Clean,Dry and Intact SIGNATURE: Solange Harmon RN PATIENT NAME: Aisha Julien DATE: May 13, 2024 TIME: 8:45 AM documented in this encounter [facility] 05-13-2024 Note [facility] 05-13-2024 Note [facility] 04-27-2024 History of Present illness Narrative Images from the original note were not included. Patient ID: Aisha Julien is a 68 y.o. male who presents for: Hypertension Patient is here for follow-up of elevated blood pressure. He is not exercising and is adherent to a low-salt diet. Blood pressure is not well controlled at home. Cardiac symptoms: dyspnea and lower extremity edema. Patient denies chest pain, irregular heart beat, and palpitations. Cardiovascular risk factors: advanced age (older than 55 for men, 65 for women), hypertension, male gender, and microalbuminuria. Use of agents associated with hypertension: none. History of target organ damage: none. Review of Systems Constitutional: Negative for activity change and fatigue. Respiratory: Positive for shortness of breath. Negative for cough and wheezing. Cardiovascular: Positive for leg swelling. Negative for chest pain and palpitations. Neurological: Negative for light-headedness and headaches. Objective The patient is pleasant and in no acute distress. The neck is supple and trachea is midline. No masses are appreciated. The heart is regular rate and rhythm without S3, S4. No murmur. The patient has normal respiratory pattern. The breath sounds are symmetrical without evidence of rhonchi or rales. No wheezing. The skin is warm and dry. The lower extremities have trace edema. The patient has good eye contact and speech is clear. Appropriate affect. Visit Vitals BP 148/86 Pulse 86 Ht 5' 9.5 Wt 169 lb SpO2 97% BMI 24.60 kg/m Smoking Status Never BSA 1.94 m [facility] Result Encounter on 04/21/2024 Component Date Value Ref Range Status [facility] WBC # BLD AUTO 04/21/2024 4.18 3.70 - 11.00 k/uL Final [facility] RBC # BLD AUTO 04/21/2024 3.83 (L) 4.20 - 6.00 m/uL Final [facility] HGB BLD-MCNC 04/21/2024 12.0 (L) 13.0 - 17.0 g/dL Final [facility] HCT VFR BLD AUTO 04/21/2024 35.6 (L) 39.0 - 51.0 % Final [facility] MCV RBC AUTO 04/21/2024 93.0 80.0 - 100.0 fL Final [facility] MCH RBC QN AUTO 04/21/2024 31.3 26.0 - 34.0 pg Final [facility] MCHC RBC AUTO-MCNC 04/21/2024 33.7 30.5 - 36.0 g/dL Final [facility] RDW RBC-RTO 04/21/2024 12.5 11.5 - 15.0 % Final [facility] PLATELET # BLD AUTO 04/21/2024 182 150 - 400 k/uL Final [facility] PMV BLD AUTO 04/21/2024 10.2 9.0 - 12.7 fL Final [facility] NEUTROPHILS/LEUK NFR BLD AUTO 04/21/2024 52.6 % Final [facility] NEUTROPHILS # BLD AUTO 04/21/2024 2.20 1.45 - 7.50 k/uL Final [facility] LYMPHOCYTES/LEUK NFR BLD AUTO 04/21/2024 17.0 % Final [facility] LYMPHOCYTES # BLD AUTO 04/21/2024 0.71 (L) 1.00 - 4.00 k/uL Final [facility] MONOCYTES/LEUK NFR BLD AUTO 04/21/2024 16.3 % Final [facility] MONOCYTES # BLD AUTO 04/21/2024 0.68 <0.87 k/uL Final [facility] EOSINOPHIL/LEUK NFR BLD AUTO 04/21/2024 12.9 % Final [facility] EOSINOPHIL # BLD AUTO 04/21/2024 0.54 (H) <0.46 k/uL Final [facility] BASOPHILS/LEUK NFR BLD AUTO 04/21/2024 1.0 % Final [facility] BASOPHILS # BLD AUTO 04/21/2024 0.04 <0.11 k/uL Final IMM GRANULOCYTES/LEUK NFR BLD AUTO 04/21/2024 0.2 % Final IMM GRANULOCYTES # BLD AUTO 04/21/2024 <0.03 <0.10 k/uL Final [facility] NRBC/100 WBC BLD-RTO 04/21/2024 0.0 /100 WBC Final [facility] NRBC # BLD AUTO 04/21/2024 <0.01 <0.01 k/uL Final [facility] DIFFERENTIAL METHOD BLD 04/21/2024 Auto Final [facility] PROT SERPL-MCNC 04/21/2024 7.1 6.3 - 8.0 g/dL Final [facility] ALBUMIN SERPL-MCNC 04/21/2024 4.5 3.9 - 4.9 g/dL Final [facility] CALCIUM SERPL-MCNC 04/21/2024 9.3 8.5 - 10.2 mg/dL Final [facility] BILIRUB SERPL-MCNC 04/21/2024 0.8 0.2 - 1.3 mg/dL Final [facility] ALP SERPL-CCNC 04/21/2024 143 (H) 38 - 113 U/L Final [facility] AST SERPL-CCNC 04/21/2024 32 14 - 40 U/L Final [facility] ALT SERPL-CCNC 04/21/2024 17 10 - 54 U/L Final [facility] GLUCOSE SERPL-MCNC 04/21/2024 101 (H) 74 - 99 mg/dL Final Comment: The [place] Diabetes Association (ADA) provides guidance for cutoff [...] Standards of Medical Care in Diabetes 2016, [place] [employer] Association. Diabetes Care. 2016.39(Suppl 1). [facility] BUN SERPL-MCNC 04/21/2024 12 9 - 24 mg/dL Final [facility] CREAT SERPL-MCNC 04/21/2024 1.08 0.73 - 1.22 mg/dL Final [facility] SODIUM SERPL-SCNC 04/21/2024 141 136 - 144 mmol/L Final [facility] POTASSIUM SERPL-SCNC 04/21/2024 5.0 3.7 - 5.1 mmol/L Final [facility] CHLORIDE SERPL-SCNC 04/21/2024 107 98 - 107 mmol/L Final [facility] CO2 SERPL-SCNC 04/21/2024 23 22 - 30 mmol/L Final [facility] ANION GAP SERPL-SCNC 04/21/2024 11 8 - 15 mmol/L Final [facility] CREATININE + EGFR PNL SERPLBLD 04/21/2024 75 >=60 mL/min/1.73m??? Final Estimated Glomerular Filtration Rate (eGFR) is calculated using the 2020 CKD-EPI creatinine equation. This equation utilizes serum creatinine, sex, and age as parameters. The creatinine assay has traceable calibration to isotope dilution-mass spectrometry. Refer to KDIGO guidelines for clinical interpretation. In patients with unstable renal function, e.g. those with acute kidney injury, the eGFR may not accurately reflect actual GFR. [facility] IRON SERPL-MCNC 04/21/2024 181 41 - 186 ug/dL Final [facility] TIBC SERPL-MCNC 04/21/2024 359 232 - 386 ug/dL Final [facility] IRON/TIBC SERPL-SRTO 04/21/2024 50.4 15.0 - 57.0 % Final [facility] VIT B12 SERPL-MCNC 04/21/2024 789 232 - 1,245 pg/mL Final [facility] FERRITIN SERPL-MCNC 04/21/2024 281.0 30.3 - 565.7 ng/mL Final [facility] FOLATE SERPL-MCNC 04/21/2024 9.7 >4.7 ng/mL Final [facility] CGA SERPL-MCNC 04/21/2024 161.1 <187.0 ng/mL Final The Chromogranin A test was performed using the AlphaSmartS CgA II KRYPTOR method. Results obtained with different assay methods or kits cannot be used interchangeably. [facility] GASTRIN SERPL-MCNC 04/21/2024 42.5 <115.0 pg/mL Final The Gastrin test was performed using the Siemens Immulite chemiluminescent immunometric method. Results obtained with different assay methods or kits cannot be used interchangeably. [facility] SEROTONIN SERUM 04/21/2024 1102 (H) 50 - 220 ng/mL Final Comment: TEST INFORMATION: Serotonin, Serum This test was developed and its performance characteristics determined by [facility]. It has not been cleared or approved by the US Food and Drug Administration. This test was performed in a CLIA certified laboratory and is intended for clinical purposes. Performed By: [facility] [address] [place] [address] Promotional Advertising Assistant: Santosh Hollis MD, PhD CLIA Number: [id number] [facility] Result Encounter on 03/24/2024 Component Date Value Ref Range Status [facility] WBC # BLD AUTO 03/24/2024 3.70 3.70 - 11.00 k/uL Final [facility] RBC # BLD AUTO 03/24/2024 3.57 (L) 4.20 - 6.00 m/uL Final [facility] HGB BLD-MCNC 03/24/2024 11.2 (L) 13.0 - 17.0 g/dL Final [facility] HCT VFR BLD AUTO 03/24/2024 34.4 (L) 39.0 - 51.0 % Final [facility] MCV RBC AUTO 03/24/2024 96.4 80.0 - 100.0 fL Final [facility] MCH RBC QN AUTO 03/24/2024 31.4 26.0 - 34.0 pg Final [facility] MCHC RBC AUTO-MCNC 03/24/2024 32.6 30.5 - 36.0 g/dL Final [facility] RDW RBC-RTO 03/24/2024 13.6 11.5 - 15.0 % Final [facility] PLATELET # BLD AUTO 03/24/2024 196 150 - 400 k/uL Final [facility] PMV BLD AUTO 03/24/2024 10.1 9.0 - 12.7 fL Final [facility] NEUTROPHILS/LEUK NFR BLD AUTO 03/24/2024 57.2 % Final [facility] NEUTROPHILS # BLD AUTO 03/24/2024 2.12 1.45 - 7.50 k/uL Final [facility] LYMPHOCYTES/LEUK NFR BLD AUTO 03/24/2024 17.0 % Final [facility] LYMPHOCYTES # BLD AUTO 03/24/2024 0.63 (L) 1.00 - 4.00 k/uL Final [facility] MONOCYTES/LEUK NFR BLD AUTO 03/24/2024 14.9 % Final [facility] MONOCYTES # BLD AUTO 03/24/2024 0.55 <0.87 k/uL Final [facility] EOSINOPHIL/LEUK NFR BLD AUTO 03/24/2024 9.5 % Final [facility] EOSINOPHIL # BLD AUTO 03/24/2024 0.35 <0.46 k/uL Final [facility] BASOPHILS/LEUK NFR BLD AUTO 03/24/2024 1.1 % Final [facility] BASOPHILS # BLD AUTO 03/24/2024 0.04 <0.11 k/uL Final IMM GRANULOCYTES/LEUK NFR BLD AUTO 03/24/2024 0.3 % Final IMM GRANULOCYTES # BLD AUTO 03/24/2024 <0.03 <0.10 k/uL Final [facility] NRBC/100 WBC BLD-RTO 03/24/2024 0.0 /100 WBC Final [facility] NRBC # BLD AUTO 03/24/2024 <0.01 <0.01 k/uL Final [facility] DIFFERENTIAL METHOD BLD 03/24/2024 Auto Final [facility] PROT SERPL-MCNC 03/24/2024 7.3 6.3 - 8.0 g/dL Final [facility] ALBUMIN SERPL-MCNC 03/24/2024 4.5 3.9 - 4.9 g/dL Final [facility] CALCIUM SERPL-MCNC 03/24/2024 9.5 8.5 - 10.2 mg/dL Final [facility] BILIRUB SERPL-MCNC 03/24/2024 0.4 0.2 - 1.3 mg/dL Final [facility] ALP SERPL-CCNC 03/24/2024 150 (H) 38 - 113 U/L Final [facility] AST SERPL-CCNC 03/24/2024 32 14 - 40 U/L Final [facility] ALT SERPL-CCNC 03/24/2024 16 10 - 54 U/L Final [facility] GLUCOSE SERPL-MCNC 03/24/2024 91 74 - 99 mg/dL Final Comment: The [place] Diabetes Association (ADA) provides guidance for cutoff [...] Standards of Medical Care in Diabetes 2016, [place] Diabetes [employer]. Diabetes Care. 2016.39(Suppl 1). [facility] BUN SERPL-MCNC 03/24/2024 19 9 - 24 mg/dL Final [facility] CREAT SERPL-MCNC 03/24/2024 1.17 0.73 - 1.22 mg/dL Final [facility] SODIUM SERPL-SCNC 03/24/2024 146 (H) 136 - 144 mmol/L Final [facility] POTASSIUM SERPL-SCNC 03/24/2024 4.5 3.7 - 5.1 mmol/L Final [facility] CHLORIDE SERPL-SCNC 03/24/2024 115 (H) 98 - 107 mmol/L Final [facility] CO2 SERPL-SCNC 03/24/2024 20 (L) 22 - 30 mmol/L Final [facility] ANION GAP SERPL-SCNC 03/24/2024 11 8 - 15 mmol/L Final [facility] CREATININE + EGFR PNL SERPLBLD 03/24/2024 68 >=60 mL/min/1.73m??? Final Estimated Glomerular Filtration Rate (eGFR) is calculated using the 2020 CKD-EPI creatinine equation. This equation utilizes serum creatinine, sex, and age as parameters. The creatinine assay has traceable calibration to isotope dilution-mass spectrometry. Refer to KDIGO guidelines for clinical interpretation. In patients with unstable renal function, e.g. those with acute kidney injury, the eGFR may not accurately reflect actual GFR. [facility] GASTRIN SERPL-MCNC 03/24/2024 52.1 <115.0 pg/mL Final The Gastrin test was performed using the Siemens Immulite chemiluminescent immunometric method. Results obtained with different assay methods or kits cannot be used interchangeably. [facility] CGA SERPL-MCNC 03/24/2024 169.7 <187.0 ng/mL Final The Chromogranin A test was performed using the [employer] CgA II KRYPTOR method. Results obtained with different assay methods or kits cannot be used interchangeably. [facility] SEROTONIN SERUM 03/24/2024 1426 (H) 50 - 220 ng/mL Final Comment: TEST INFORMATION: Serotonin, Serum This test was developed and its performance characteristics determined by [facility]. It has not been cleared or approved by the US Food and Drug Administration. This test was performed in a CLIA certified laboratory and is intended for clinical purposes. Performed By: [facility] [address] [place] [id number] Promotional Advertising Assistant: Santosh Hollis MD, PhD CLIA Number: [id number] [facility] VASOACTIVE INTESTINAL PEPTIDE 03/24/2024 36 pg/mL Final Comment: ADDITIONAL INFORMATION Adult Reference Range(s): Up to 36 pg/mL (mean 14) This test was developed and its performance characteristics determined by [facility]. It has not been cleared or approved by the US Food and Drug Administration. The FDA had determined that such clearance or approval is not necessary. Test Performed by: [facility] [address] [place] [address] [employer] Result Encounter on 02/24/2024 Component Date Value Ref Range Status [facility] WBC # BLD AUTO 02/24/2024 5.85 3.70 - 11.00 k/uL Final [facility] RBC # BLD AUTO 02/24/2024 4.57 4.20 - 6.00 m/uL Final [facility] HGB BLD-MCNC 02/24/2024 13.7 13.0 - 17.0 g/dL Final [facility] HCT VFR BLD AUTO 02/24/2024 42.2 39.0 - 51.0 % Final [facility] MCV RBC AUTO 02/24/2024 92.3 80.0 - 100.0 fL Final [facility] MCH RBC QN AUTO 02/24/2024 30.0 26.0 - 34.0 pg Final [facility] MCHC RBC AUTO-MCNC 02/24/2024 32.5 30.5 - 36.0 g/dL Final [facility] RDW RBC-RTO 02/24/2024 13.7 11.5 - 15.0 % Final [facility] PLATELET # BLD AUTO 02/24/2024 213 150 - 400 k/uL Final [facility] PMV BLD AUTO 02/24/2024 10.3 9.0 - 12.7 fL Final [facility] NEUTROPHILS/LEUK NFR BLD AUTO 02/24/2024 64.6 % Final [facility] NEUTROPHILS # BLD AUTO 02/24/2024 3.78 1.45 - 7.50 k/uL Final [facility] LYMPHOCYTES/LEUK NFR D AUTO 02/24/2024 15.4 % Final [facility] LYMPHOCYTES # D AUTO 02/24/2024 0.90 (L) 1.00 - 4.00 k/uL Final [facility] MONOCYTES/LEUK NFR D AUTO 02/24/2024 11.8 % Final [facility] MONOCYTES # D AUTO 02/24/2024 0.69 <0.87 k/uL Final [facility] EOSINOPHIL/LEUK NFR D AUTO 02/24/2024 7.4 % Final [facility] EOSINOPHIL # D AUTO 02/24/2024 0.43 <0.46 k/uL Final [facility] BASOPHILS/LEUK NFR D AUTO 02/24/2024 0.5 % Final [facility] BASOPHILS # D AUTO 02/24/2024 0.03 <0.11 k/uL Final [facility] GRANULOCYTES/LEUK NFR D AUTO 02/24/2024 0.3 % Final [facility] GRANULOCYTES # BLD AUTO 02/24/2024 <0.03 <0.10 k/uL Final [facility] NRBC/100 WBC BLD-RTO 02/24/2024 0.0 /100 WBC Final [facility] NRBC # D AUTO 02/24/2024 <0.01 <0.01 k/uL Final [facility] DIFFERENTIAL METHOD D 02/24/2024 Auto Final [facility] PROT SERPL-MCNC 02/24/2024 7.6 6.3 - 8.0 g/dL Final [facility] ALBUMIN SERPL-MCNC 02/24/2024 4.5 3.9 - 4.9 g/dL Final [facility] CALCIUM SERPL-MCNC 02/24/2024 9.4 8.5 - 10.2 mg/dL Final [facility] BILIRUB SERPL-[facility]NC 02/24/2024 0.5 0.2 - 1.3 mg/dL Final [facility] ALP SERPL-CCNC 02/24/2024 191 (H) 38 - 113 U/L Final [facility] AST SERPL-CCNC 02/24/2024 29 14 - 40 U/L Final [facility] ALT SERPL-CCNC 02/24/2024 17 10 - 54 U/L Final [facility] GLUCOSE SERPL-MCNC 02/24/2024 125 (H) 74 - 99 mg/dL Final Comment: The [place] Diabetes Association (ADA) provides guidance for cutoff [...] Standards of Medical Care in Diabetes 2016, [place] [employer] Association. Diabetes Care. 2016.39(Suppl 1). [facility] BUN SERPL-[facility] 02/24/2024 18 9 - 24 mg/dL Final [facility] CREAT SERPL-[facility] 02/24/2024 1.10 0.73 - 1.22 mg/dL Final [facility] SODIUM SERPL-SCNC 02/24/2024 144 136 - 144 mmol/L Final [facility] POTASSIUM SERPL-SCNC 02/24/2024 5.2 (H) 3.7 - 5.1 mmol/L Final [facility] CHLORIDE SERPL-SCNC 02/24/2024 110 (H) 98 - 107 mmol/L Final [facility] CO2 SERPL-SCNC 02/24/2024 25 22 - 30 mmol/L Final [facility] ANION GAP SERPL-SCNC 02/24/2024 9 8 - 15 mmol/L Final [facility] CREATININE + EGFR PNL SERPLBLD 02/24/2024 73 >=60 mL/min/1.73m??? Final Estimated Glomerular Filtration Rate (eGFR) is calculated using the 202 CKD-EPI creatinine equation. This equation utilizes serum creatinine, sex, and age as parameters. The creatinine assay has traceable calibration to isotope dilution-mass spectrometry. Refer to KDIGO guidelines for clinical interpretation. In patients with unstable renal function, e.g. those with acute kidney injury, the eGFR may not accurately reflect actual GFR. [facility] GASTRIN SERPL-MCNC 02/24/2024 22.0 <115.0 pg/mL Final The Gastrin test was performed using the Siemens Immulite chemiluminescent immunometric method. Results obtained with different assay methods or kits cannot be used interchangeably. [facility] SEROTONIN SERUM 02/24/2024 1886 (H) 50 - 220 ng/mL Final Comment: TEST INFORMATION: Serotonin, Serum This test was developed and its performance characteristics determined by [facility]. It has not been cleared or approved by the US Food and Drug Administration. This test was performed in a CLIA certified laboratory and is intended for clinical purposes. Performed By: [facility] [address] [place] [id number] Promotional Advertising Assistant: Santosh Hollis MD, PhD CLIA Number: [id number] [facility] CGA SERPL-MCNC 02/24/2024 187.8 (H) <187.0 ng/mL Final The Chromogranin A test was performed using the [employer] CgA II KRYPTOR method. Results obtained with different assay methods or kits cannot be used interchangeably. [facility] VASOACTIVE INTESTINAL PEPTIDE 02/24/2024 23 pg/mL Final Comment: ADDITIONAL INFORMATION Adult Reference Range(s): Up to 36 pg/mL (mean 14) This test was developed and its performance characteristics determined by [facility]. It has not been cleared or approved by the US Food and Drug Administration. The FDA had determined that such clearance or approval is not necessary. Test Performed by: [facility] [address] [place] [address] [employer] Result Encounter on 01/28/2024 Component Date Value Ref Range Status [facility] WBC # BLD AUTO 01/28/2024 4.52 3.70 - 11.00 k/uL Final [facility] RBC # BLD AUTO 01/28/2024 4.12 (L) 4.20 - 6.00 m/uL Final [facility] HGB BLD-MCNC 01/28/2024 12.3 (L) 13.0 - 17.0 g/dL Final [facility] HCT VFR BLD AUTO 01/28/2024 37.9 (L) 39.0 - 51.0 % Final [facility] MCV RBC AUTO 01/28/2024 92.0 80.0 - 100.0 fL Final [facility] MCH RBC QN AUTO 01/28/2024 29.9 26.0 - 34.0 pg Final [facility] MCHC RBC AUTO-MCNC 01/28/2024 32.5 30.5 - 36.0 g/dL Final [facility] RDW RBC-RTO 01/28/2024 14.3 11.5 - 15.0 % Final [facility] PLATELET # BLD AUTO 01/28/2024 187 150 - 400 k/uL Final [facility] PMV BLD AUTO 01/28/2024 10.2 9.0 - 12.7 fL Final [facility] NEUTROPHILS/LEUK NFR BLD AUTO 01/28/2024 52.4 % Final [facility] NEUTROPHILS # BLD AUTO 01/28/2024 2.37 1.45 - 7.50 k/uL Final [facility] LYMPHOCYTES/LEUK NFR BLD AUTO 01/28/2024 19.5 % Final [facility] LYMPHOCYTES # BLD AUTO 01/28/2024 0.88 (L) 1.00 - 4.00 k/uL Final [facility] MONOCYTES/LEUK NFR BLD AUTO 01/28/2024 17.0 % Final [facility] MONOCYTES # BLD AUTO 01/28/2024 0.77 <0.87 k/uL Final [facility] EOSINOPHIL/LEUK NFR BLD AUTO 01/28/2024 10.0 % Final [facility] EOSINOPHIL # BLD AUTO 01/28/2024 0.45 <0.46 k/uL Final [facility] BASOPHILS/LEUK NFR BLD AUTO 01/28/2024 0.7 % Final [facility] BASOPHILS # BLD AUTO 01/28/2024 0.03 <0.11 k/uL Final [facility] GRANULOCYTES/LEUK NFR BLD AUTO 01/28/2024 0.4 % Final [facility] GRANULOCYTES # BLD AUTO 01/28/2024 <0.03 <0.10 k/uL Final [facility] NRBC/100 WBC BLD-RTO 01/28/2024 0.0 /100 WBC Final [facility] NRBC # BLD AUTO 01/28/2024 <0.01 <0.01 k/uL Final [facility] DIFFERENTIAL METHOD BLD 01/28/2024 Auto Final [facility] PROT SERPL-MCNC 01/28/2024 7.5 6.3 - 8.0 g/dL Final [facility] ALBUMIN SERPL-MCNC 01/28/2024 4.5 3.9 - 4.9 g/dL Final [facility] CALCIUM SERPL-MCNC 01/28/2024 9.5 8.5 - 10.2 mg/dL Final [facility] BILIRUB SERPL-MCNC 01/28/2024 0.5 0.2 - 1.3 mg/dL Final [facility] ALP SERPL-CCNC 01/28/2024 195 (H) 38 - 113 U/L Final [facility] AST SERPL-CCNC 01/28/2024 25 14 - 40 U/L Final [facility] ALT SERPL-CCNC 01/28/2024 20 10 - 54 U/L Final [facility] GLUCOSE SERPL-MCNC 01/28/2024 104 (H) 74 - 99 mg/dL Final Comment: The [place] Diabetes Association (ADA) provides guidance for cutoff [...] Standards of Medical Care in Diabetes 2016, [place] [employer]. Diabetes Care. 2016.39(Suppl 1). [facility] BUN SERPL-[facility] 01/28/2024 21 9 - 24 mg/dL Final [facility] CREAT SERPL-[facility]NC 01/28/2024 1.01 0.73 - 1.22 mg/dL Final [facility] SODIUM SERPL-SCNC 01/28/2024 140 136 - 144 mmol/L Final [facility] POTASSIUM SERPL-SCNC 01/28/2024 5.1 3.7 - 5.1 mmol/L Final [facility] CHLORIDE SERPL-SCNC 01/28/2024 108 (H) 98 - 107 mmol/L Final [facility] CO2 SERPL-SCNC 01/28/2024 25 22 - 30 mmol/L Final [facility] ANION GAP SERPL-SCNC 01/28/2024 7 (L) 8 - 15 mmol/L Final [facility] CREATININE + EGFR PNL SERPLBLD 01/28/2024 81 >=60 mL/min/1.73m??? Final Estimated Glomerular Filtration Rate (eGFR) is calculated using the 2020 CKD-EPI creatinine equation. This equation utilizes serum creatinine, sex, and age as parameters. The creatinine assay has traceable calibration to isotope dilution-mass spectrometry. Refer to KDIGO guidelines for clinical interpretation. In patients with unstable renal function, e.g. those with acute kidney injury, the eGFR may not accurately reflect actual GFR. [facility] IRON SERPL-[facility] 01/28/2024 86 41 - 186 ug/dL Final [facility] TIBC SERPL-[facility]NC 01/28/2024 348 232 - 386 ug/dL Final [facility] IRON/TIBC SERPL-SRTO 01/28/2024 24.7 15.0 - 57.0 % Final [facility] VIT B12 SERPL-MCNC 01/28/2024 674 232 - 1,245 pg/mL Final [facility] FERRITIN SERPL-MCNC 01/28/2024 220.0 30.3 - 565.7 ng/mL Final [facility] FOLATE SERPL-MCNC 01/28/2024 10.5 >4.7 ng/mL Final [facility] CGA SERPL-MCNC 01/28/2024 136.4 <187.0 ng/mL Final The Chromogranin A test was performed using the [employer] CgA II KRYPTOR method. Results obtained with different assay methods or kits cannot be used interchangeably. [employer] Result Encounter on 12/03/2023 Component Date Value Ref Range Status [facility] WBC # BLD AUTO 12/03/2023 5.22 3.70 - 11.00 k/uL Final [facility] RBC # BLD AUTO 12/03/2023 4.06 (L) 4.20 - 6.00 m/uL Final [facility] HGB BLD-MCNC 12/03/2023 11.7 (L) 13.0 - 17.0 g/dL Final [facility] HCT VFR BLD AUTO 12/03/2023 36.0 (L) 39.0 - 51.0 % Final [facility] MCV RBC AUTO 12/03/2023 88.7 80.0 - 100.0 fL Final [facility] MCH RBC QN AUTO 12/03/2023 28.8 26.0 - 34.0 pg Final [facility] MCHC RBC AUTO-MCNC 12/03/2023 32.5 30.5 - 36.0 g/dL Final [facility] RDW RBC-RTO 12/03/2023 14.8 11.5 - 15.0 % Final [facility] PLATELET # BLD AUTO 12/03/2023 198 150 - 400 k/uL Final [facility] PMV BLD AUTO 12/03/2023 10.5 9.0 - 12.7 fL Final [facility] NEUTROPHILS/LEUK NFR BLD AUTO 12/03/2023 65.1 % Final [facility] NEUTROPHILS # BLD AUTO 12/03/2023 3.40 1.45 - 7.50 k/uL Final [facility] LYMPHOCYTES/LEUK NFR BLD AUTO 12/03/2023 18.4 % Final [facility] LYMPHOCYTES # BLD AUTO 12/03/2023 0.96 (L) 1.00 - 4.00 k/uL Final [facility] MONOCYTES/LEUK NFR BLD AUTO 12/03/2023 13.0 % Final [facility] MONOCYTES # BLD AUTO 12/03/2023 0.68 <0.87 k/uL Final [facility] EOSINOPHIL/LEUK NFR BLD AUTO 12/03/2023 2.5 % Final [facility] EOSINOPHIL # BLD AUTO 12/03/2023 0.13 <0.46 k/uL Final [facility] BASOPHILS/LEUK NFR BLD AUTO 12/03/2023 0.6 % Final [facility] BASOPHILS # BLD AUTO 12/03/2023 0.03 <0.11 k/uL Final [facility] GRANULOCYTES/LEUK NFR BLD AUTO 12/03/2023 0.4 % Final [facility] GRANULOCYTES # BLD AUTO 12/03/2023 <0.03 <0.10 k/uL Final [facility] NRBC/100 WBC BLD-RTO 12/03/2023 0.0 /100 WBC Final [facility] NRBC # BLD AUTO 12/03/2023 <0.01 <0.01 k/uL Final [facility] DIFFERENTIAL METHOD BLD 12/03/2023 Auto Final [facility] PROT SERPL-MCNC 12/03/2023 7.2 6.3 - 8.0 g/dL Final [facility] ALBUMIN SERPL-MCNC 12/03/2023 4.1 3.9 - 4.9 g/dL Final [facility] CALCIUM SERPL-MCNC 12/03/2023 9.5 8.5 - 10.2 mg/dL Final [facility] BILIRUB SERPL-MCNC 12/03/2023 0.5 0.2 - 1.3 mg/dL Final [facility] ALP SERPL-CCNC 12/03/2023 135 (H) 38 - 113 U/L Final [facility] AST SERPL-CCNC 12/03/2023 17 14 - 40 U/L Final [facility] ALT SERPL-CCNC 12/03/2023 11 10 - 54 U/L Final [facility] GLUCOSE SERPL-MCNC 12/03/2023 120 (H) 74 - 99 mg/dL Final Comment: The [place] Diabetes Association (ADA) provides guidance for cutoff [...] Standards of Medical Care in Diabetes 2016, [place] [employer] Association. Diabetes Care. 2016.39(Suppl 1). [facility] BUN SERPL-MCNC 12/03/2023 14 9 - 24 mg/dL Final [facility] CREAT SERPL-MCNC 12/03/2023 0.98 0.73 - 1.22 mg/dL Final [facility] SODIUM SERPL-SCNC 12/03/2023 137 136 - 144 mmol/L Final [facility] POTASSIUM SERPL-SCNC 12/03/2023 4.4 3.7 - 5.1 mmol/L Final [facility] CHLORIDE SERPL-SCNC 12/03/2023 102 97 - 105 mmol/L Final [facility] CO2 SERPL-SCNC 12/03/2023 25 22 - 30 mmol/L Final [facility] ANION GAP SERPL-SCNC 12/03/2023 10 9 - 18 mmol/L Final [facility] CREATININE + EGFR PNL SERPLBLD 12/03/2023 84 >=60 mL/min/1.73m??? Final Estimated Glomerular Filtration Rate (eGFR) is calculated using the 2020 CKD-EPI creatinine equation. This equation utilizes serum creatinine, sex, and age as parameters. The creatinine assay has traceable calibration to isotope dilution-mass spectrometry. Refer to KDIGO guidelines for clinical interpretation. In patients with unstable renal function, e.g. those with acute kidney injury, the eGFR may not accurately reflect actual GFR. [facility] IRON SERPL-MCNC 12/03/2023 67 41 - 186 ug/dL Final [facility] TIBC SERPL-NC 12/03/2023 383 232 - 386 ug/dL Final [facility] IRON/TIBC SERPL-SRTO 12/03/2023 17.5 15.0 - 57.0 % Final [facility] VIT B12 [facility] 12/03/2023 698 232 - 1,245 pg/mL Final [facility] FERRITIN [facility] 12/03/2023 260.0 30.3 - 565.7 ng/mL Final [facility] FOLATE SERPL-NC 12/03/2023 8.4 >4.7 ng/mL Final No Known Allergies Current Outpatient Medications on File Prior to Visit Medication Sig Dispense Refill finasteride (Proscar) 5 MG tablet Take 1 tablet (5 mg) by mouth in the morning. Do not crush, chew, or split.. 90 tablet 3 losartan (Cozaar) 25 MG tablet Take 1 tablet (25 mg) by mouth Daily 30 tablet 0 [DISCONTINUED] ondansetron ODT (Zofran-ODT) 4 MG disintegrating tablet Take 4 mg by mouth every 8 (eight) hours if needed for nausea. [DISCONTINUED] pantoprazole (ProtoNix) 40 MG EC tablet Take 40 mg by mouth in the morning. No current facility-administered medications on file prior to visit. 1. Benign essential hypertension (CMS/HCC) Chronic problem, borderline control. See the scanned blood pressure readings he brought. After discussion we mutually agreed to go ahead and increase his medication an in 2 weeks he will get some blood pressure readings and contact me back in 3 weeks. In prescribing an adjustment to their current medication, consideration of the following encompasses moderate decision making; the current prescriptions and supplements, the current allergies and medication intolerances, the current medical conditions, and potential drug interactions. Risks, benefits, and reason for adjusting their current medication were discussed. The patient was given a chance to ask questions today and all questions were answered. The patient is to contact us if any other questions arise or if any problems occur with the adjustment in their medication. - losartan (Cozaar) 50 MG tablet; Take 1tablet (50 mg) by mouth Daily Dispense: 60 tablet; Refill: 0 2. Hypertensive nephropathy (CMS/HCC) Chronic problem, stable, demonstrating end organ damage from their current state of health. I stressed the importance of keeping blood pressure and blood sugar to goal, staying well hydrated, avoiding NSAIDs, and aerobic exercises as tolerated. Continue to monitor longitudinally. 3. Stage 2 chronic kidney disease Chronic problem, stable, defining the end organ damage of the nephropathy. I stressed the importance of keeping blood pressure and blood sugar to goal, staying well hydrated, and aerobic exercises as tolerated. Continue to monitor longitudinally. 4. Microalbuminuria Chronic problem, defining an aspect the nephropathy, with significant risk, uncertain progression requiring longitudinal monitoring, and moderate decision making. Microalbuminuria describes a moderate increase in the level of urine albumin. Normally, the kidneys filter albumin, so if the kidney leaks small amounts of albumin into the urine then it is a indicator of chronic kidney disease. Microalbuminuria is an independent indicator of increased cardiovascular risk among individuals and therefore can be used for risk stratification for cardiovascular disease. 5. Primary malignant neuroendocrine tumor of pancreas (CMS/HCC) We did have a brief discussion about how he is doing with this disease. The bypass surgery around the tumor of his small intestine has done well. He continues on medication and monitoring. He has gained some weight back. I also did go in an updated his chronic problem list and added his gastrojejunal bypass surgery documented in this encounter [facility] 03-24-2024 Instructions Reina Baker - 03/24/2024 11:20 AM EDT Continue with Sandostatin LAR today and q 4 weeks Labs prior to treatment Anemia labs in [address] Pancreas/Pelvis in 7 weeks Labs same day - include tumor markers RTC in 8 weeks for Sandostatin No labs documented in this encounter [facility] 03-24-2024 History of Present illness Narrative Images from the original note were not included. NAME: Aisha Julien [facility] NO.: [id number] DATE OF SERVICE: March 24, 2024 ([place]oul) Some elements in this clinic note that are critical to medical decision making have been carefully reviewed and included from a prior clinic note dated: February 24, 2024 (Britney) Referring Provider: Dr. 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 The patient is status post palliative GJ bypass on 10/29/2023 and presents for systemic therapy with SSA (Sandostatin). CT scan in January 2024 with improvement in disease. Symptoms have improved. PLAN: Continue with Sandostatin LAR today and q 4 weeks Labs prior to treatment Anemia labs in [address] Pancreas/Pelvis in 7 weeks Labs same day - include tumor markers RTC in 8 weeks for Sandostatin No labs HPI: CASE HISTORY: Reverse Chronological Order 02/18/2024 - CT Pancreas/Pelvis: Redemonstrated findings of the known extensive metastatic neuroendocrine neoplasm, with slight improvement seen compared to September 2023. Decrease in the length of the focally thickened segment of ileum in the right lower quadrant, at the site of the known primary ileal neuroendocrine tumor. An adjacent partially calcified right lower quadrant lymph node metastasis has decreased as well. Slight decrease in size of extensive mesenteric lymph node metastatic disease and retroperitoneal lymph node metastatic disease, with measurements provided above. Stable appearing infiltrative appearing neoplasm in the left anterior pararenal space of the retroperitoneum, and similar appearing possible intraperitoneal capsular implant along the dome of the liver. Stable appearance of numerous small sclerotic foci, likely indicating stable skeletal metastatic disease. Stable appearance of severe narrowing/occlusion of the [...] the right lower quadrant, similar to previously. 12/03/2023 - Began Sandostatin LAR 10/29/2023 - Laparotomy, gastrojejunostomy (Bilroth II reconstruction), takedown of gastrocutaneous fistula, and placement of distal feeding tube 10/29/2023-11/07/2023 - Admitted at [facility] - observation after surgery 10/01/2023 - CT Pancreas/Pelvis: Metastatic neuroendocrine tumor with grossly stable, multifocal measurable disease from recent priors as detailed. Sclerotic osseous foci suspected metastatic and grossly unchanged. Percutaneous gastrojejunostomy remains in place, with mild proximal duodenal dilation, similar to recent prior. No gross interval gastric outlet obstruction otherwise. Minimal residual ascites, intervally improved. 09/02/2023 - CT Pancreas/Pelvis: Widespread metastatic disease as described related to the patient's known neuroendocrine tumor. Small volume abdominal ascites new since 08/28/2023. Right lower lobe opacities more confluent since prior. 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 Pancreatic uncinate neuroendocrine neoplasm and low-attenuation hepatic lesions are better evaluated on prior contrast-enhanced CT. Development of patchy ground glass opacities right lower lobe, likely pneumonia/aspiration. Diffusely heterogeneous osseous mineralization which could be related to osteopenia or infiltrative metastatic disease (and could be further differentiated with [facility] PET-CT). 08/28/2023 - CT Brain: No CT evidence of acute intracranial process 08/28/2023 - CXR: No evidence of active disease. 08/28/2023-09/05/2023 - Admitted at [facility] - Patient sent by surgery with failure to thrive, concern for dehydration. 08/17/2023 - ECHO: EF: 58 08/14/2023 - PEG-J tube had moved out of place, repositioned by GI 08/13/2023 - PEG-J tube placed 08/13/2023 - Fine needle aspirations A. Pancreas, uncinate mass, biopsy: -Well-differentiated neuroendocrine tumor, at least WHO grade 1 (Ki67 <3%) in this specimen. -Tumor cells are strongly positive for CAM5.2, synaptophysin, INSM1, and chromogranin supporting the above interpretation. B. Lymph node, biopsy: -Predominantly hemorrhage admixed with some lymphoid tissue and smooth muscle. -No evidence of neoplasm in this material. 08/08/2024 - CT Pancreas/Pelvis: Hypoenhancing mass involving the uncinate process of the pancreas and retroperitoneal lymphadenopathy. Suspect neoplasm. Two indeterminate hepatic hypodensities. 08/07/2023-08/17/2023 - Admitted at [facility] - Nausea & Vomiting: Sent by GI for weight loss and unable to keep anything down since June. 07/25/2023 - EGD with biopsy: Duodenal mass - [facility] - Dr. Linder. 07/24/2023 - CT A/P: at [facility] A mass is noted in the region of the third portion of the duodenum with associated obstruction of the stomach and proximal duodenum. The mass is difficult to measure but measures approximately 3.4 x 3.4 cm in greatest axial dimensions. There appears to be adjacent bulky lymphadenopathy involving the mesentery extending inferiorly some of which appears partially calcified. There also appears yto be left periaortic lymphadenopathy. It is difficult to say with certainty whether this mass arises from the small bowel or pancreas. Given the partially calcified lymphadenopathy a carcinoid tumor is suspected. Findings have progressed since prior study. Mesenteric engorgement is seen. Given the size of the mass, portal vein/SMV thrombosis cannot be excluded. 07/10/2023 - Presented to PCP with abdominal pain onset 1 week prior Updated Visit, March 24, 2024: Aisha returns today for a follow up. He is tolerating Sandostatin well. His recent scan shows response to treatment. Continue Sandostatin today and q 4 weeks. Will repeat scans in 7 weeks and draw tumor markers. Updated Visit, February 24, 2024: Patient returns for follow up. CTs show improvement. Sandostatin LAR is going well. He denies any symptoms remains. He is eating well and having good bowel movements. Denies any current flushing or pain. Updated Visit, January 28, 2024: Aisha returns today for a follow up. He is tolerating Sandostatin LAR well with no complaints. He is able to eat more without nausea or vomiting. He has also been able to return to work. Hgb has improved to 12.3. Repeat CT pancreas/pelvis in 3 weeks, consider PET based on results for questionable bone mets. Proceed Sandostatin today. Initial Visit, December 03, 2023: Aisha Julien presents today for a Hematology and Oncology evaluation. He is a 68 year old male who was found to have a small bowel neuroendocrine tumor with metastases in 06/2023. He had an open GJ bypass on 10/28. He would like to start systemic therapy (Sandostatin) here in [place]. Incidents of nausea after eating got more frequent over the past two years prior to diagnosis. He has a PICC line currently, PEG-J tube did not work well for him. He is not in pain now, a little sore on site of stitches. Prior History from Dr. 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 The patient is status post palliative GJ bypass on 10/29/2023, recovering well. Updated History: Aisha Julien is a 68 year old male who underwent an open GJ bypass on 10/29/2023 for duodenal obstruction from metastatic SB-NET. He is recovering well without complications. He is tolerating PO intake and has normal BM. No nausea or emesis. Has been on FLD since discharge. Remains active and able to carry out his daily activities. No wound complications. Treatment Plan: Advance to regular diet as tolerated Once regular diet is tolerated, would recommend removing the PICC line since no TPN or IV hydration will be needed. Referral to medical oncology to consider systemic therapy (Sandostatin) Return to surgery clinic as needed REVIEW OF SYSTEMS Per HPI and otherwise negative by full review of organ systems. ECOG PERFORMANCE STATUS: 1 PHYSICAL EXAMINATION: Vitals: BP 144/71 Pulse 100 Temp (Src) 97.7 (Temporal) Resp 16 Ht 5' 9.488 (1.77m) Wt 172 lb 13.5 oz (78.4kg) SpO2 99% BMI 25.17 kg/(m^2). Body surface area is 1.96 meters squared. Exam limited to gross visualization where appropriate. Gen.: This is an age-appropriate patient in no acute distress. Head: Appears atraumatic with no visible lesions. Eyes: Pupils equally round and reactive to light, extraocular muscles are intact. Neck: Supple. Respiratory: Appears to be respiring comfortably. Neurologic: Nonfocal to gross visualization. Alert and oriented 3. Psychiatric: No evidence of inappropriate anxiety or depression. Skin: Visible areas of skin without rash, lesions, wounds or petechiae. ALLERGIES: ALLERGIES No Known Allergies MEDICATIONS: losartan (COZAAR) 100 mg tablet Take 100 mg by mouth once daily. MULTIVITAMIN ORAL Take by mouth. finasteride (PROSCAR) 5 mg tablet Take 5 mg by mouth every other day. dilTIAZem CR (TIAZAC, TAZTIA XT) 180 mg 24 hr capsule Take 180 mg by mouth once daily. metoprolol succinate ER (TOPROL XL) 50 mg 24 hr tablet Take 50 mg by mouth once daily. LABORATORY VALUES: WBC (k/uL) Date Value 03/24/2024 3.70 RBC (m/uL) Date Value 03/24/2024 3.57 (L) Hemoglobin (g/dL) Date Value 03/24/2024 11.2 (L) Hematocrit (%) Date Value 03/24/2024 34.4 (L) MCV (fL) Date Value 03/24/2024 96.4 MCH (pg) Date Value 03/24/2024 31.4 MCHC (g/dL) Date Value 03/24/2024 32.6 RDW-CV (%) Date Value 03/24/2024 13.6 Platelet Count (k/uL) Date Value 03/24/2024 196 MPV (fL) Date Value 03/24/2024 10.1 Glucose (mg/dL) Date Value 03/24/2024 91 BUN (mg/dL) Date Value 03/24/2024 19 Creatinine (mg/dL) Date Value 03/24/2024 1.17 Sodium (mmol/L) Date Value 03/24/2024 146 (H) Potassium (mmol/L) Date Value 03/24/2024 4.5 Chloride (mmol/L) Date Value 03/24/2024 115 (H) CO2 (mmol/L) Date Value 03/24/2024 20 (L) Protein, Total (g/dL) Date Value 03/24/2024 7.3 Albumin (g/dL) Date Value 03/24/2024 4.5 Calcium, Total (mg/dL) Date Value 03/24/2024 9.5 Alkaline Phosphatase (U/L) Date Value 03/24/2024 150 (H) Bilirubin, Total (mg/dL) Date Value 03/24/2024 0.4 AST (U/L) Date Value 03/24/2024 32 ALT (U/L) Date Value 03/24/2024 16 Triglyceride (mg/dL) Date Value 09/02/2023 70 DIAGNOSIS: (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) (primary encounter diagnosis) Plan: CT PANCREAS/PELVIS W IVCON, iv contrast (will be provided with radiology test), CT CHEST W IVCON, iv contrast (will be provided with radiology test), COMPLETE BLOOD COUNT AND DIFFERENTIAL, COMPREHENSIVE METABOLIC PANEL, IRON AND TIBC, FERRITIN, VITAMIN B12, FOLATE, SERUM (C7B.8) 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) Plan: CT PANCREAS/PELVIS W IVCON, iv contrast (will be provided with radiology test), CT CHEST W IVCON, iv contrast (will be provided with radiology test), GASTRIN BLD, VASOACTIVE INTESTINAL POLYPEPTIDE (VIP), PLASMA, CHROMOGRANIN A, SEROTONIN BLD, COMPLETE BLOOD COUNT AND DIFFERENTIAL, COMPREHENSIVE METABOLIC PANEL (C25.9) Malignant neoplasm of pancreas, unspecified location of malignancy (HCC) Plan: CT PANCREAS/PELVIS W IVCON (D64.9) Anemia, unspecified type Plan: COMPLETE BLOOD COUNT AND DIFFERENTIAL, COMPREHENSIVE METABOLIC PANEL, IRON AND TIBC, FERRITIN, VITAMIN B12, FOLATE, SERUM PAST MEDICAL HISTORY No date: Essential hypertension No date: GERD (gastroesophageal reflux disease) PAST SURGICAL HISTORY No date: ARTHROSCOPY KNEE DIAGNOSTIC W/WO SYNOVIAL BX SPX; Bilateral Comment: states x3 2021: COLONOSCOPY DIAGNOSTIC Comment: no polyps 08/14/2023: EGD DIAGNOSTIC 1965: PAST SURGICAL HISTORY OF Comment: tonsilectomy Social History Tobacco Use Smoking status: Never Smokeless tobacco: Never Vaping Use Vaping Use: Former Substance Use Topics Alcohol use: Yes Comment: a few beers per day Drug use: Not Currently FAMILY HISTORY Problem Relation Age of Onset Uterine Cancer Mother other (bile duct cancer) Sister Colon Cancer No Family History I spent a total of 30 minutes on the date of service which included preparing to see the patient, [id number] patient care, completing clinical documentation, performing a medically appropriate examination, counseling and educating the patient/family/caregiver, ordering medications, tests, or procedures, independently interpreting results (not separately reported), communicating results to the patient/family/caregiver, and care coordination (not separately reported). Roselyn Leonard MD, CPE Hematology and Oncology Services Provided at: [place], [place] Scribe Attestation: This note was scribed by Reina Baker on March 24, 2024 under the direction and supervision of Dr. Roselyn Leonard. I attest that all of the information documented is correct to the best of my knowledge. Provider Attestation: I, Roselyn Leonard MD, attest that all information documented by the above scribe is correct, and was supervised by me and under my direction. CC: Cleveland Alberts [address] [facility] [address] Rene Cannon MD, MD [address] [facility] [id number] documented in this encounter [facility] 03-24-2024 Note [facility] 02-24-2024 History of Present illness Narrative Images from the original note were not included. NAME: Aisha Julien [facility] NO.: [id number] DATE OF SERVICE: February 24 2024 (Elements copied from Dr. Leonard's note dated January 28, 2024, have been reviewed and updated where appropriate, and all reflect current assessment and medical decision making during today's encounter, February 24, 2024) Referring Provider: Dr. 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 The patient is status post palliative GJ bypass on 10/29/2023 and presents for systemic therapy with SSA (Sandostatin). CT scan in January 2024 with improvement in disease. Symptoms have improved. Continue with Sandostatin LAR today and return in 4 weeks with labs and sandostatin. HPI: CASE HISTORY: Reverse Chronological Order 02/18/2024 - CT pancreas/pelvis: 1. Redemonstrated findings of the known extensive [...] the right lower quadrant, similar to previously. 12/03/2023 - Began Sandostatin LAR 10/29/2023 - Laparotomy, gastrojejunostomy (Bilroth II reconstruction), takedown of gastrocutaneous fistula, and placement of distal feeding tube 10/29/2023-11/07/2023 - Admitted at [facility] - Observation after surgery 10/01/2023 - CT Pancreas/Pelvis: Metastatic neuroendocrine tumor with grossly stable, multifocal measurable disease from recent priors as detailed. Sclerotic osseous foci suspected metastatic and grossly unchanged. Percutaneous gastrojejunostomy remains in place, with mild proximal duodenal dilation, similar to recent prior. No gross interval gastric outlet obstruction otherwise. Minimal residual ascites, intervally improved. 09/02/2023 - CT Pancreas/Pelvis: Widespread metastatic disease as described related to the patient's known neuroendocrine tumor. Small volume abdominal ascites new since 08/28/2023. Right lower lobe opacities more confluent since prior. 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 Pancreatic uncinate neuroendocrine neoplasm and low-attenuation hepatic lesions are better evaluated on prior contrast-enhanced CT. Development of patchy ground glass opacities right lower lobe, likely pneumonia/aspiration. Diffusely heterogeneous osseous mineralization which could be related to osteopenia or infiltrative metastatic disease (and could be further differentiated with Dotatate PET-CT). 08/28/2023 - CT Brain: No CT evidence of acute intracranial process 08/28/2023 - CXR: No evidence of active disease. 08/28/2023-09/05/2023 - Admitted at [facility] - Patient sent by surgery with failure to thrive, concern for dehydration. 08/17/2023 - ECHO: EF: 58 08/14/2023 - PEG-J tube had moved out of place, repositioned by GI 08/13/2023 - PEG-J tube placed 08/13/2023 - Fine needle aspirations A. Pancreas, uncinate mass, biopsy: -Well-differentiated neuroendocrine tumor, at least WHO grade 1 (Ki67 <3%) in this specimen. -Tumor cells are strongly positive for CAM5.2, synaptophysin, INSM1, and chromogranin supporting the above interpretation. B. Lymph node, biopsy: -Predominantly hemorrhage admixed with some lymphoid tissue and smooth muscle. -No evidence of neoplasm in this material. 08/08/2024 - CT Pancreas/Pelvis: Hypoenhancing mass involving the uncinate process of the pancreas and retroperitoneal lymphadenopathy. Suspect neoplasm. Two indeterminate hepatic hypodensities. 08/07/2023-08/17/2023 - Admitted at [facility] - Nausea & Vomiting: Sent by GI for weight loss and unable to keep anything down since June. 07/25/2023 - EGD with biopsy: Duodenal mass - [facility] - Dr. Linder. 07/24/2023 - CT A/P: at [facility] A mass is noted in the region of the third portion of the duodenum with associated obstruction of the stomach and proximal duodenum. The mass is difficult to measure but measures approximately 3.4 x 3.4 cm in greatest axial dimensions. There appears to be adjacent bulky lymphadenopathy involving the mesentery extending inferiorly some of which appears partially calcified. There also appears yto be left periaortic lymphadenopathy. It is difficult to say with certainty whether this mass arises from the small bowel or pancreas. Given the partially calcified lymphadenopathy a carcinoid tumor is suspected. Findings have progressed since prior study. Mesenteric engorgement is seen. Given the size of the mass, portal vein/SMV thrombosis cannot be excluded. 07/10/2023 - Presented to PCP with abdominal pain onset 1 week prior Updated Visit, February 24, 2024: Patient returns for follow up. CTs show improvement. Sandostatin LAR is going well. He denies any symptoms remains. He is eating well and having good bowel movements. Denies any current flushing or pain. Updated Visit, January 28, 2024: Aisha returns today for a follow up. He is tolerating Sandostatin LAR well with no complaints. He is able to eat more without nausea or vomiting. He has also been able to return to work. Hgb has improved to 12.3. Repeat CT pancreas/pelvis in 3 weeks, consider PET based on results for questionable bone mets. Proceed Sandostatin today. Initial Visit, December 03, 2023: Aisha Julien presents today for a Hematology and Oncology evaluation. He is a 68 year old male who was found to have a small bowel neuroendocrine tumor with metastases in 06/2023. He had an open GJ bypass on 10/28. He would like to start systemic therapy (Sandostatin) here in [place]. Incidents of nausea after eating got more frequent over the past two years prior to diagnosis. He has a PICC line currently, PEG-J tube did not work well for him. He is not in pain now, a little sore on site of stitches. Prior History from Dr. 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 The patient is status post palliative GJ bypass on 10/29/2023, recovering well. Updated History: Aisha Julien is a 68 year old male who underwent an open GJ bypass on 10/29/2023 for duodenal obstruction from metastatic SB-NET. He is recovering well without complications. He is tolerating PO intake and has normal BM. No nausea or emesis. Has been on FLD since discharge. Remains active and able to carry out his daily activities. No wound complications. Treatment Plan: Advance to regular diet as tolerated Once regular diet is tolerated, would recommend removing the PICC line since no TPN or IV hydration will be needed. Referral to medical oncology to consider systemic therapy (Sandostatin) Return to surgery clinic as needed REVIEW OF SYSTEMS Per HPI and otherwise negative by full review of organ systems. ECOG PERFORMANCE STATUS: 1 PHYSICAL EXAMINATION: Vitals: BP 153/84 Pulse 73 Temp (Src) 97.4 (Temporal) Resp 16 Ht 5' 9.488 (1.77m) Wt 167 lb 15.9 oz (76.2kg) SpO2 100% BMI 24.46 kg/(m^2). Body surface area is 1.93 meters squared. General: Alert and oriented, no distress, pleasant and cooperative. Heart: Regular, normal S1 and S2, no murmurs, rubs, or gallops Lungs: Clear to auscultation bilaterally Abdomen: Benign Extremities: Feet/ankles without edema, posterior tibial pulses full and symmetrical ALLERGIES: ALLERGIES No Known Allergies MEDICATIONS: dilTIAZem CR (TIAZAC, TAZTIA XT) 180 mg 24 hr capsule Take 180 mg by mouth once daily. losartan (COZAAR) 100 mg tablet Take 100 mg by mouth once daily. metoprolol succinate ER (TOPROL XL) 50 mg 24 hr tablet Take 50 mg by mouth once daily. MULTIVITAMIN ORAL Take by mouth. finasteride (PROSCAR) 5 mg tablet Take 5 mg by mouth every other day. LABORATORY VALUES: WBC (k/uL) Date Value 02/24/2024 5.85 RBC (m/uL) Date Value 02/24/2024 4.57 Hemoglobin (g/dL) Date Value 02/24/2024 13.7 Hematocrit (%) Date Value 02/24/2024 42.2 MCV (fL) Date Value 02/24/2024 92.3 MCH (pg) Date Value 02/24/2024 30.0 MCHC (g/dL) Date Value 02/24/2024 32.5 RDW-CV (%) Date Value 02/24/2024 13.7 Platelet Count (k/uL) Date Value 02/24/2024 213 MPV (fL) Date Value 02/24/2024 10.3 Glucose (mg/dL) Date Value 02/24/2024 125 (H) BUN (mg/dL) Date Value 02/24/2024 18 Creatinine (mg/dL) Date Value 02/24/2024 1.10 Sodium (mmol/L) Date Value 02/24/2024 144 Potassium (mmol/L) Date Value 02/24/2024 5.2 (H) Chloride (mmol/L) Date Value 02/24/2024 110 (H) CO2 (mmol/L) Date Value 02/24/2024 25 Protein, Total (g/dL) Date Value 02/24/2024 7.6 Albumin (g/dL) Date Value 02/24/2024 4.5 Calcium, Total (mg/dL) Date Value 02/24/2024 9.4 Alkaline Phosphatase (U/L) Date Value 02/24/2024 191 (H) Bilirubin, Total (mg/dL) Date Value 02/24/2024 0.5 AST (U/L) Date Value 02/24/2024 29 ALT (U/L) Date Value 02/24/2024 17 Triglyceride (mg/dL) Date Value 09/02/2023 70 DIAGNOSIS: (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) (primary encounter diagnosis) Plan: COMPREHENSIVE METABOLIC PANEL, COMPLETE BLOOD COUNT AND DIFFERENTIAL, CHROMOGRANIN A PAST MEDICAL HISTORY Diagnosis Date Essential hypertension GERD (gastroesophageal reflux disease) PAST SURGICAL HISTORY Procedure Laterality Date ARTHROSCOPY KNEE DIAGNOSTIC W/WO SYNOVIAL BX SPX Bilateral states x3 COLONOSCOPY DIAGNOSTIC 2021 no polyps EGD DIAGNOSTIC 08/14/2023 PAST SURGICAL HISTORY OF 1965 tonsilectomy Social History Tobacco Use Smoking status: Never Smokeless tobacco: Never Vaping Use Vaping Use: Former Substance Use Topics Alcohol use: Yes Comment: a few beers per day Drug use: Not Currently FAMILY HISTORY Problem Relation Age of Onset Uterine Cancer Mother other (bile duct cancer) Sister Colon Cancer No Family History I spent a total of 20 minutes on the date of the service which included preparing to see the patient, [id number] patient care, completing clinical documentation, obtaining and/or reviewing separately obtained history, performing a medically appropriate examination, counseling and educating the patient/family/caregiver, ordering medications, tests, or procedures, communicating with other HCPs (not separately reported), independently interpreting results (not separately reported), communicating results to the patient/family/caregiver, and care coordination (not separately reported). Dalton Tan PA-C Hematology and Oncology Services Provided at: [facility], [place], [place] CC: Cleveland Quanuje [address] [facility] [address] Rene Cannon MD, [address] [facility] [id number] documented in this encounter [facility] 02-24-2024 Note [facility] 02-23-2024 Telephone encounter Note Pt will need labs placed if needed for appt on 02/23. Trudi Pickering MA [facility] 02-23-2024 Miscellaneous Notes Pt will need labs placed if needed for appt on 02/23. Trudi Pickering MA documented in this encounter [facility] 02-19-2024 Telephone encounter Note Pt notified and verbalizes understanding. Jessy Butcher RN [facility] Work Phone: 02-19-2024 Miscellaneous Notes Pt notified and verbalizes understanding. Jessy Butcher RN 2nd call placed to pt. No answer. Message left requesting call back. Jessy Butcher RN Call placed to pt. No answer. Unable to leave a message. Jessy Butcher RN ----- Message from Roselyn Leonard MD sent at 02/18/2024 12:53 PM EDT ----- Scan showing improvement! documented in this encounter [facility] 02-19-2024 Telephone encounter Note 2nd call placed to pt. No answer. Message left requesting call back. Jessy Butcher RN [facility] 02-18-2024 Telephone encounter Note Call placed to pt. No answer. Unable to leave a message. Jessy Butcher RN [facility] 02-18-2024 Telephone encounter Note ----- Message from Roselyn Leonard MD sent at 02/18/2024 12:53 PM EDT ----- Scan showing improvement! [facility] 02-18-2024 History of Present illness Narrative Radiology Service Progress Note PATIENT NAME: Aisha Julien DATE OF SERVICE: February 18, 2024 TIME: 8:14 AM PATIENT IDENTITY VERIFICATION COMPLETED USING TWO (2) IDENTIFIERS: Name and Date of confirmed by patient verbally. FALL SCREENING: Has the patient had 2 falls in the last year or 1 fall with injury or currently using an Ambulatory Assistive Device (Walker, Cane, Wheelchair, Crutches, etc.)? No PATIENT GENDER DATA: Male PATIENT RELEVANT IMPLANT DATA REVIEWED: Not Applicable PATIENT PRESENTS WITH AN IMPLANTABLE OR ATTACHED SALVAGE DETERMINER: No RADIOLOGY DEPARTMENT: CT; Exam(s) Completed: Pancreas and Pelvis PERIPHERAL IV DATA: Site assessment: Clean,Dry and Intact, Site disposition Discontinued SIGNED BY: RT Norman(R) February 18, 2024 8:14 AM Radiology Service Progress Note DATE OF SERVICE: February 18, 2024 TIME: 8:17 AM PATIENT WEIGHT: 170LBS PATIENT IDENTITY VERIFICATION COMPLETED USING TWO (2) [...] CREATININE: Creatinine Date Value Ref Range Status 01/28/2024 1.01 0.73 - 1.22 mg/dL Final 12/03/2023 0.98 0.73 - 1.22 mg/dL Final 11/07/2023 0.84 0.73 - 1.22 mg/dL Final Estimated Glomerular Filtration Rate Date Value Ref Range Status 01/28/2024 81 >=60 mL/min/1.73m Final Comment: Estimated Glomerular Filtration Rate (eGFR) [...] RESULTS: POC done: Yes, See Lab Tab February 18, 2024 TREATMENT: N/A IV SITE: Ambulatory: A peripheral IV was started in the Right hand with a Angio cath: 20 gauge. IV SITE APPEARANCE: Clean,Dry and Intact SIGNATURE: Solange Harmon RN PATIENT NAME: Aisha Julien DATE: February 18, 2024 TIME: 8:17 AM documented in this encounter [facility] 02-18-2024 Note [facility] 02-18-2024 Note [facility] 02-10-2024 Telephone encounter Note Thanks - done [facility] 02-10-2024 Miscellaneous Notes Thanks - done Pt scheduled 02/25/24. OV 01/28/24: RTC with me in 4 weeks Labs and Sandostatin same day Nancy: please place lab orders you would like completed for follow up Nia documented in this encounter [facility] 02-10-2024 Telephone encounter Note Pt scheduled 02/25/24. OV 01/28/24: RTC with me in 4 weeks Labs and Sandostatin same day Nacny: please place lab orders you would like completed for follow up Nia [facility] 01-28-2024 History of Present illness Narrative Images from the original note were not included. NAME: Aisha Julien CLINIC NO.: [id number] DATE OF SERVICE: January 28, 2024 ([facility]) Some elements in this clinic note that are critical to medical decision making have been carefully reviewed and included from a prior clinic note dated: December 03, 2023 ([facility]). Referring Provider: Dr. 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 The patient is status post palliative GJ bypass on 10/29/2023 and presents for systemic therapy with SSA (Sandostatin). PLAN: Proceed Sandostatin LAR today and q [address] Pancreas/Pelvis in 3 weeks Consider PET scan based on results RTC with me in 4 weeks Labs and Sandostatin same day HPI: CASE HISTORY: Reverse Chronological Order 12/03/2023 - Began Sandostatin LAR 10/29/2023 - Laparotomy, gastrojejunostomy (Bilroth II reconstruction), takedown of gastrocutaneous fistula, and placement of distal feeding tube 10/29/2023-11/07/2023 - Admitted at [facility] - Observation after surgery 10/01/2023 - CT Pancreas/Pelvis: Metastatic neuroendocrine tumor with grossly stable, multifocal measurable disease from recent priors as detailed. Sclerotic osseous foci suspected metastatic and grossly unchanged. Percutaneous gastrojejunostomy remains in place, with mild proximal duodenal dilation, similar to recent prior. No gross interval gastric outlet obstruction otherwise. Minimal residual ascites, intervally improved. 09/02/2023 - CT Pancreas/Pelvis: Widespread metastatic disease as described related to the patient's known neuroendocrine tumor. Small volume abdominal ascites new since 08/28/2023. Right lower lobe opacities more confluent since prior. 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 Pancreatic uncinate neuroendocrine neoplasm and low-attenuation hepatic lesions are better evaluated on prior contrast-enhanced CT. Development of patchy ground glass opacities right lower lobe, likely pneumonia/aspiration. Diffusely heterogeneous osseous mineralization which could be related to osteopenia or infiltrative metastatic disease (and could be further differentiated with Dotatate PET-CT). 08/28/2023 - CT Brain: No CT evidence of acute intracranial process 08/28/2023 - CXR: No evidence of active disease. 08/28/2023-09/05/2023 - Admitted at [facility] - Patient sent by surgery with failure to thrive, concern for dehydration. 08/17/2023 - ECHO: EF: 58 08/14/2023 - PEG-J tube had moved out of place, repositioned by GI 08/13/2023 - PEG-J tube placed 08/13/2023 - Fine needle aspirations A. Pancreas, uncinate mass, biopsy: -Well-differentiated neuroendocrine tumor, at least WHO grade 1 (Ki67 <3%) in this specimen. -Tumor cells are strongly positive for CAM5.2, synaptophysin, INSM1, and chromogranin supporting the above interpretation. B. Lymph node, biopsy: -Predominantly hemorrhage admixed with some lymphoid tissue and smooth muscle. -No evidence of neoplasm in this material. 08/08/2024 - CT Pancreas/Pelvis: Hypoenhancing mass involving the uncinate process of the pancreas and retroperitoneal lymphadenopathy. Suspect neoplasm. Two indeterminate hepatic hypodensities. 08/07/2023-08/17/2023 - Admitted at [facility] - Nausea & Vomiting: Sent by GI for weight loss and unable to keep anything down since June. 07/25/2023 - EGD with biopsy: Duodenal mass - [facility] - Dr. Linder. 07/24/2023 - CT A/P: at [facility] A mass is noted in the region of the third portion of the duodenum with associated obstruction of the stomach and proximal duodenum. The mass is difficult to measure but measures approximately 3.4 x 3.4 cm in greatest axial dimensions. There appears to be adjacent bulky lymphadenopathy involving the mesentery extending inferiorly some of which appears partially calcified. There also appears yto be left periaortic lymphadenopathy. It is difficult to say with certainty whether this mass arises from the small bowel or pancreas. Given the partially calcified lymphadenopathy a carcinoid tumor is suspected. Findings have progressed since prior study. Mesenteric engorgement is seen. Given the size of the mass, portal vein/SMV thrombosis cannot be excluded. 07/10/2023 - Presented to PCP with abdominal pain onset 1 week prior Updated Visit, January 28, 2024: Aisha returns today for a follow up. He is tolerating Sandostatin LAR well with no complaints. He is able to eat more without nausea or vomiting. He has also been able to return to work. Hgb has improved to 12.3. Repeat CT pancreas/pelvis in 3 weeks, consider PET based on results for questionable bone mets. Proceed Sandostatin today. Initial Visit, December 03, 2023: Aisha Julien presents today for a Hematology and Oncology evaluation. He is a 68 year old male who was found to have a small bowel neuroendocrine tumor with metastases in 06/2023. He had an open GJ bypass on 10/28. He would like to start systemic therapy (Sandostatin) here in [place]. Incidents of nausea after eating got more frequent over the past two years prior to diagnosis. He has a PICC line currently, PEG-J tube did not work well for him. He is not in pain now, a little sore on site of stitches. Prior History from Dr. 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 The patient is status post palliative GJ bypass on 10/29/2023, recovering well. Updated History: Aisha Julien is a 68 year old male who underwent an open GJ bypass on 10/29/2023 for duodenal obstruction from metastatic SB-NET. He is recovering well without complications. He is tolerating PO intake and has normal BM. No nausea or emesis. Has been on FLD since discharge. Remains active and able to carry out his daily activities. No wound complications. Treatment Plan: Advance to regular diet as tolerated Once regular diet is tolerated, would recommend removing the PICC line since no TPN or IV hydration will be needed. Referral to medical oncology to consider systemic therapy (Sandostatin) Return to surgery clinic as needed REVIEW OF SYSTEMS Per HPI and otherwise negative by full review of organ systems. ECOG PERFORMANCE STATUS: 1 PHYSICAL EXAMINATION: Vitals: BP 154/80 Pulse 58 Temp (Src) 97.6 (Temporal) Resp 16 Ht 5' 9.488 (1.77m) Wt 171 lb 4.8 oz (77.7kg) SpO2 100% BMI 24.94 kg/(m^2). Body surface area is 1.95 meters squared. Exam limited to gross visualization where appropriate. Gen.: This is an age-appropriate patient in no acute distress. Head: Appears atraumatic with no visible lesions. Eyes: Pupils equally round and reactive to light, extraocular muscles are intact. Neck: Supple. Respiratory: Appears to be respiring comfortably. Neurologic: Nonfocal to gross visualization. Alert and oriented 3. Psychiatric: No evidence of inappropriate anxiety or depression. Skin: Visible areas of skin without rash, lesions, wounds or petechiae. ALLERGIES: ALLERGIES No Known Allergies MEDICATIONS: dilTIAZem CR (TIAZAC, TAZTIA XT) 180 mg 24 hr capsule Take 180 mg by mouth once daily. losartan (COZAAR) 100 mg tablet Take 100 mg by mouth once daily. metoprolol succinate ER (TOPROL XL) 50 mg 24 hr tablet Take 50 mg by mouth once daily. MULTIVITAMIN ORAL Take by mouth. finasteride (PROSCAR) 5 mg tablet Take 5 mg by mouth every other day. iv contrast (will be provided with radiology test) CT PANCREAS/PEL Inject, intravenously, once for 1 dose.No IV access, insert saline lock prior to the beginning of sedation, infusion, injection of imaging exam. Discontinue saline lock post exam. If Pt. has a central line or IVAD, may access for administration according to line specific nursing protocol. Once exam is complete flush line and de-access according to line specific nursing protocol in the CT contrast administration guidelines link. Potassium Gluconate 595 mg (99 mg) tab Take 595 mg by mouth once daily. (Patient not taking: Reported on 01/28/2024) tamsulosin (FLOMAX) 0.4 mg Take 0.4 mg by mouth one time only. (Patient not taking: Reported on 01/28/2024) pantoprazole DR (PROTONIX) 40 mg tablet Take 1 tablet by mouth every afternoon. (Patient not taking: Reported on 01/28/2024) LABORATORY VALUES: WBC (k/uL) Date Value 01/28/2024 4.52 RBC (m/uL) Date Value 01/28/2024 4.12 (L) Hemoglobin (g/dL) Date Value 01/28/2024 12.3 (L) Hematocrit (%) Date Value 01/28/2024 37.9 (L) MCV (fL) Date Value 01/28/2024 92.0 MCH (pg) Date Value 01/28/2024 29.9 MCHC (g/dL) Date Value 01/28/2024 32.5 RDW-CV (%) Date Value 01/28/2024 14.3 Platelet Count (k/uL) Date Value 01/28/2024 187 MPV (fL) Date Value 01/28/2024 10.2 Glucose (mg/dL) Date Value 01/28/2024 104 (H) BUN (mg/dL) Date Value 01/28/2024 21 Creatinine (mg/dL) Date Value 01/28/2024 1.01 Sodium (mmol/L) Date Value 01/28/2024 140 Potassium (mmol/L) Date Value 01/28/2024 5.1 Chloride (mmol/L) Date Value 01/28/2024 108 (H) CO2 (mmol/L) Date Value 01/28/2024 25 Protein, Total (g/dL) Date Value 01/28/2024 7.5 Albumin (g/dL) Date Value 01/28/2024 4.5 Calcium, Total (mg/dL) Date Value 01/28/2024 9.5 Alkaline Phosphatase (U/L) Date Value 01/28/2024 195 (H) Bilirubin, Total (mg/dL) Date Value 01/28/2024 0.5 AST (U/L) Date Value 01/28/2024 25 ALT (U/L) Date Value 01/28/2024 20 Triglyceride (mg/dL) Date Value 09/02/2023 70 DIAGNOSIS: (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) (primary encounter diagnosis) Plan: CT PANCREAS/PELVIS W IVCON PAST MEDICAL HISTORY Diagnosis Date Essential hypertension GERD (gastroesophageal reflux disease) PAST SURGICAL HISTORY Procedure Laterality Date ARTHROSCOPY KNEE DIAGNOSTIC W/WO SYNOVIAL BX SPX Bilateral states x3 COLONOSCOPY DIAGNOSTIC 2021 no polyps EGD DIAGNOSTIC 08/14/2023 PAST SURGICAL HISTORY OF 1965 tonsilectomy Social History Tobacco Use Smoking status: Never Smokeless tobacco: Never Vaping Use Vaping Use: Former Substance Use Topics Alcohol use: Yes Comment: a few beers per day Drug use: Not Currently FAMILY HISTORY Problem Relation Age of Onset Uterine Cancer Mother other (bile duct cancer) Sister Colon Cancer No Family History I spent a total of 30 minutes on the date of the service which included preparing to see the patient, [id number] patient care, completing clinical documentation, obtaining and/or reviewing separately obtained history, performing a medically appropriate examination, counseling and educating the patient/family/caregiver, ordering medications, tests, or procedures, communicating with other HCPs (not separately reported), independently interpreting results (not separately reported), communicating results to the patient/family/caregiver, and care coordination (not separately reported). Roselyn Leonard MD, CPE Hematology and Oncology Services Provided at: [facility], [place], [place] Scribe Attestation: This note was scribed by Reina Baker on January 28, 2024 under the direction and supervision of Dr. Roselyn Leonard. I attest that all of the information documented is correct to the best of my knowledge. Provider Attestation: I, Roselyn Leonard MD, attest that all information documented by the above scribe is correct, and was supervised by me and under my direction. CC: Samer Nafprashantuconnor [address] [facility] [address] Rene Cannon MD, MD [address] [facility] [id number] documented in this encounter [facility] 01-28-2024 Instructions Reina Baker - 01/28/2024 9:37 AM EDT Proceed Sandostatin LAR today and q [address] Pancreas/Pelvis in 3 weeks Consider PET scan based on results RTC with me in 4 weeks Labs and Sandostatin same day documented in this encounter [facility] 01-21-2024 Telephone encounter Note Patient has an appt on 01/28/24. Would you like labs, if so place orders. Catalina White MA [facility] 01-21-2024 Miscellaneous Notes Patient has an appt on 01/28/24. Would you like labs, if so place orders. Catalina White MA documented in this encounter [facility] 12-25-2023 Telephone encounter Note Letter signed; pt aware and will come to the office to case picker. Placed at lead front end developer. Nia Muniz RN [facility] 12-25-2023 Miscellaneous Notes Letter signed; pt aware and will come to the office to case picker. Placed at lead front end developer. Nia Muniz RN Pt stopped by requesting return to work, without restrictions, as of December 29, 2023. Nancy: letter initiate; please review and sign if agreeable Nia Muniz RN documented in this encounter [facility] 12-24-2023 Telephone encounter Note Pt stopped by requesting return to work, without restrictions, as of December 29, 2023. Nancy: letter initiate; please review and sign if agreeable Nia Muniz RN [facility] 12-12-2023 Miscellaneous Notes [facility] PAPERWORK SIGNED. FAXED TO [employer] @ [phone] and [facility] fax @ [phone]. PLACED IN SCANNING. Patient notified Yoli Robb MA Short term extension completed and placed in folder to be signed. Trudi Pickering MA documented in this encounter [facility] 12-03-2023 Instructions Reina Baker - 12/03/2023 4:02 PM EDT Start Sandostatin LAR today and q 4 weeks RTC with me in 8 weeks Labs and Sandostatin same day documented in this encounter [facility] 12-03-2023 History of Present illness Narrative Images from the original note were not included. NAME: Aisha Julien NO.: [id number] DATE OF SERVICE: December 03, 2023 ([place]monse) Referring Provider: Dr. Cleveland Alberts Consultation requested by Dr. Alberts for an opinion regarding Mr. Aisha Julien, and my final recommendations will be communicated back to the requesting physician by way of shared medical record or letter via US mail. 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 The patient is status post palliative GJ bypass on 10/29/2023 and presents for systemic therapy with SSA (Sandostatin). PLAN: Start Sandostatin LAR today and q 4 weeks RTC with me in 8 weeks Labs and Sandostatin same day HPI: CASE HISTORY: Reverse Chronological Order 10/29/2023 - Laparotomy, gastrojejunostomy (Bilroth II reconstruction), takedown of gastrocutaneous fistula, and placement of distal feeding tube 10/29/2023-11/07/2023 - Admitted at [facility] - Observation after surgery 10/01/2023 - CT Pancreas/Pelvis: Metastatic neuroendocrine tumor with grossly stable, multifocal measurable disease from recent priors as detailed. Sclerotic osseous foci suspected metastatic and grossly unchanged. Percutaneous gastrojejunostomy remains in place, with mild proximal duodenal dilation, similar to recent prior. No gross interval gastric outlet obstruction otherwise. Minimal residual ascites, intervally improved. 09/02/2023 - CT Pancreas/Pelvis: Widespread metastatic disease as described related to the patient's known neuroendocrine tumor. Small volume abdominal ascites new since 08/28/2023. Right lower lobe opacities more confluent since prior. 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 Pancreatic uncinate neuroendocrine neoplasm and low-attenuation hepatic lesions are better evaluated on prior contrast-enhanced CT. Development of patchy ground glass opacities right lower lobe, likely pneumonia/aspiration. Diffusely heterogeneous osseous mineralization which could be related to osteopenia or infiltrative metastatic disease (and could be further differentiated with Dotatate PET-CT). 08/28/2023 - CT Brain: No CT evidence of acute intracranial process 08/28/2023 - CXR: No evidence of active disease. 08/28/2023-09/05/2023 - Admitted at [facility] - Patient sent by surgery with failure to thrive, concern for dehydration. 08/17/2023 - ECHO: EF: 58 08/14/2023 - PEG-J tube had moved out of place, repositioned by GI 08/13/2023 - PEG-J tube placed 08/13/2023 - Fine needle aspirations A. Pancreas, uncinate mass, biopsy: -Well-differentiated neuroendocrine tumor, at least WHO grade 1 (Ki67 <3%) in this specimen. -Tumor cells are strongly positive for CAM5.2, synaptophysin, INSM1, and chromogranin supporting the above interpretation. B. Lymph node, biopsy: -Predominantly hemorrhage admixed with some lymphoid tissue and smooth muscle. -No evidence of neoplasm in this material. 08/08/2024 - CT Pancreas/Pelvis: Hypoenhancing mass involving the uncinate process of the pancreas and retroperitoneal lymphadenopathy. Suspect neoplasm. Two indeterminate hepatic hypodensities. 08/07/2023-08/17/2023 - Admitted at [facility] - Nausea & Vomiting: Sent by GI for weight loss and unable to keep anything down since June. 07/25/2023 - EGD with biopsy: Duodenal mass - [facility] - Dr. Linder. 07/24/2023 - CT A/P: at [facility] A mass is noted in the region of the third portion of the duodenum with associated obstruction of the stomach and proximal duodenum. The mass is difficult to measure but measures approximately 3.4 x 3.4 cm in greatest axial dimensions. There appears to be adjacent bulky lymphadenopathy involving the mesentery extending inferiorly some of which appears partially calcified. There also appears yto be left periaortic lymphadenopathy. It is difficult to say with certainty whether this mass arises from the small bowel or pancreas. Given the partially calcified lymphadenopathy a carcinoid tumor is suspected. Findings have progressed since prior study. Mesenteric engorgement is seen. Given the size of the mass, portal vein/SMV thrombosis cannot be excluded. 07/10/2023 - Presented to PCP with abdominal pain onset 1 week prior Initial Visit, December 03, 2023: Aisha Julien presents today for a Hematology and Oncology evaluation. He is a 68 year old male who was found to have a small bowel neuroendocrine tumor with metastases in 06/2023. He had an open GJ bypass on 10/28. He would like to start systemic therapy (Sandostatin) here in [place]. Incidents of nausea after eating got more frequent over the past two years prior to diagnosis. He has a PICC line currently, PEG-J tube did not work well for him. He is not in pain now, a little sore on site of stitches. Prior History from Dr. 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 The patient is status post palliative GJ bypass on 10/29/2023, recovering well. Updated History: Aisha Julien is a 68 year old male who underwent an open GJ bypass on 10/29/2023 for duodenal obstruction from metastatic SB-NET. He is recovering well without complications. He is tolerating PO intake and has normal BM. No nausea or emesis. Has been on FLD since discharge. Remains active and able to carry out his daily activities. No wound complications. Treatment Plan: Advance to regular diet as tolerated Once regular diet is tolerated, would recommend removing the PICC line since no TPN or IV hydration will be needed. Referral to medical oncology to consider systemic therapy (Sandostatin) Return to surgery clinic as needed REVIEW OF SYSTEMS Per HPI and otherwise negative by full review of organ systems. ECOG PERFORMANCE STATUS: 1 PHYSICAL EXAMINATION: Vitals: BP 159/72 Pulse 86 Temp (Src) 97.2 (Temporal) Resp 16 Ht 5' 9.488 (1.77m) Wt 162 lb 14.7 oz (73.9kg) SpO2 99% BMI 23.72 kg/(m^2). Body surface area is 1.9 meters squared. Exam limited to gross visualization where appropriate. Gen.: This is an age-appropriate patient in no acute distress. Head: Appears atraumatic with no visible lesions. Eyes: Pupils equally round and reactive to light, extraocular muscles are intact. Neck: Supple. Respiratory: Appears to be respiring comfortably. Neurologic: Nonfocal to gross visualization. Alert and oriented 3. Psychiatric: No evidence of inappropriate anxiety or depression. Skin: Visible areas of skin without rash, lesions, wounds or petechiae. ALLERGIES: ALLERGIES No Known Allergies MEDICATIONS: Potassium Gluconate 595 mg (99 mg) tab Take 595 mg by mouth once daily. MULTIVITAMIN ORAL Take by mouth. tamsulosin (FLOMAX) 0.4 mg Take 0.4 mg by mouth one time only. finasteride (PROSCAR) 5 mg tablet Take 5 mg by mouth every other day. pantoprazole DR (PROTONIX) 40 mg tablet Take 1 tablet by mouth every afternoon. famotidine (PEPCID) 20 mg tablet Take by mouth every 24 hours. (Patient not taking: Reported on 11/17/2023) ertapenem sodium (ERTAPENEM INJECTION) Ertapenem Active 1 GM IV Q24H 14 October 09, 2023 12:00am amino acids 5% - electrolytes - calcium in D20W 5 % solp 2,000 mL Inject intravenously every 12 hours. IV LABORATORY VALUES: WBC (k/uL) Date Value 12/03/2023 5.22 RBC (m/uL) Date Value 12/03/2023 4.06 (L) Hemoglobin (g/dL) Date Value 12/03/2023 11.7 (L) Hematocrit (%) Date Value 12/03/2023 36.0 (L) MCV (fL) Date Value 12/03/2023 88.7 MCH (pg) Date Value 12/03/2023 28.8 MCHC (g/dL) Date Value 12/03/2023 32.5 RDW-CV (%) Date Value 12/03/2023 14.8 Platelet Count (k/uL) Date Value 12/03/2023 198 MPV (fL) Date Value 12/03/2023 10.5 Glucose (mg/dL) Date Value 12/03/2023 120 (H) BUN (mg/dL) Date Value 12/03/2023 14 Creatinine (mg/dL) Date Value 12/03/2023 0.98 Sodium (mmol/L) Date Value 12/03/2023 137 Potassium (mmol/L) Date Value 12/03/2023 4.4 Chloride (mmol/L) Date Value 12/03/2023 102 CO2 (mmol/L) Date Value 12/03/2023 25 Protein, Total (g/dL) Date Value 12/03/2023 7.2 Albumin (g/dL) Date Value 12/03/2023 4.1 Calcium, Total (mg/dL) Date Value 12/03/2023 9.5 Alkaline Phosphatase (U/L) Date Value 12/03/2023 135 (H) Bilirubin, Total (mg/dL) Date Value 12/03/2023 0.5 AST (U/L) Date Value 12/03/2023 17 ALT (U/L) Date Value 12/03/2023 11 Triglyceride (mg/dL) Date Value 09/02/2023 70 DIAGNOSIS: (D64.9) Anemia, unspecified type (primary encounter diagnosis) Plan: COMPLETE BLOOD COUNT AND DIFFERENTIAL, COMPREHENSIVE METABOLIC PANEL, IRON AND TIBC, FERRITIN, VITAMIN B12, FOLATE, SERUM PAST MEDICAL HISTORY Diagnosis Date Essential hypertension GERD (gastroesophageal reflux disease) PAST SURGICAL HISTORY Procedure Laterality Date ARTHROSCOPY KNEE DIAGNOSTIC W/WO SYNOVIAL BX SPX Bilateral states x3 COLONOSCOPY DIAGNOSTIC 2021 no polyps EGD DIAGNOSTIC 08/14/2023 PAST SURGICAL HISTORY OF 1965 tonsilectomy Social History Tobacco Use Smoking status: Never Smokeless tobacco: Never Vaping Use Vaping Use: Former Substance Use Topics Alcohol use: Yes Comment: a few beers per day Drug use: Not Currently FAMILY HISTORY Problem Relation Age of Onset Uterine Cancer Mother other (bile duct cancer) Sister Colon Cancer No Family History I spent a total of 60 minutes on the date of the service which included preparing to see the patient, [id number] patient care, completing clinical documentation, obtaining and/or reviewing separately obtained history, performing a medically appropriate examination, counseling and educating the patient/family/caregiver, ordering medications, tests, or procedures, communicating with other HCPs (not separately reported), independently interpreting results (not separately reported), communicating results to the patient/family/caregiver, and care coordination (not separately reported). Roselyn Leonard MD, CPE Hematology and Oncology Services Provided at: [facility], [place], [place] Scribe Attestation: This note was scribed by Reina Baker on December 03, 2023 under the direction and supervision of Dr. Roselyn Leonard. I attest that all of the information documented is correct to the best of my knowledge. Provider Attestation: I, Roselyn Leonard MD, attest that all information documented by the above scribe is correct, and was supervised by me and under my direction. CC: Cleveland Alberts [address] [facility] [address] Rene Cannon MD, [address] [facility] [id number] documented in this encounter [facility] 11-18-2023 Miscellaneous Notes Spoke to patient & patient is scheduled for on 12/03/2023 for labs at 3:15 pm, NANCY at 3:30 pm, and Sandostatin injection at 4:15 pm. Xin Robert Clerical: Pt will need to see Dr Leonard for labs, RV (New pt), and Sandostatin as soon as he is back in office. Jessy Butcher, RN Images from the original note were not included. Roselyn Leonard MD Naffouje, Samer A, MD; Jessie Zamora, LUCILLE; Jessy Butcher, LUCILLE; P [facility] Clerical Pool; P [facility] Pharmacy Pool Hi Lexie and thanks! - Happy to arrange - I might have to see him week of November 30 because I'm out next week. But we will get him in and continue Sandostatin if that's ok. Previous Messages ----- Message ----- From: Cleveland Alberts MD Sent: 11/17/2023 10:49 AM EDT To: Roselyn Leonard MD; Jessie Zamora, LUCILLE Nancy, I am taking care of Mr. Julien who has small bowel NET (primary in the distal ileum) with a large metastatic node that occluded his SMV and duodenum. I initially managed him conservatively with a G tube and TPN until the ascites resolved and his functional status improved and I was able to do a palliative GJ bypass on 10/29/2023. He is recovering well and now he is advanced to regular diet, PICC line and G tube removed. I would like to refer him to you for further systemic therapy since his disease is unresectable. He prefers to receive the Sandostatin in [place] since he lives there. Thank you very much. Lexie documented in this encounter [facility] 11-17-2023 Miscellaneous Notes Employer Forms for Patient/Caregiver Time Off of Work FMLA Completed, signed by provider, and returned to below contact. Completed copy scanned in [employer] Date of Surgery: 10/29/23 Estimated RTW date: 12/15/23 Employer: [employer] & [phone] Date sent to employer: 11/17/23 Received fax confirmation: YES Received FMLA/STD paperwork on 11/17/23 Pending physician signature and completion. Surgeon: Dr. Alberts Date of Surgery (if known): Multiple documented in this encounter [facility] 11-17-2023 History of Present illness Narrative Images from the original note were not included. [facility] SURGERY FOLLOW UP VISIT Follow up visit after open GJ bypass on 10/29/2023 UPDATED HISTORY: Aisha Julien is a 68 year old male who underwent an open GJ bypass on 10/29/2023 for duodenal obstruction from metastatic SB-NET. He is recovering well without complications. He is tolerating PO intake and has normal BM. No nausea or emesis. Has been on FLD since discharge. Remains active and able to carry out his daily activities. No wound complications. 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 The patient is status post palliative GJ bypass on 10/29/2023, recovering well. Treatment plan: Advance to regular diet as tolerated Once regular diet is tolerated, would recommend removing the PICC line since no TPN or IV hydration will be needed. Referral to medical oncology to consider systemic therapy (Sandostatin) Return to surgery clinic as needed Cleveland Alberts MD [facility] [facility] documented in this encounter [facility] 11-17-2023 Nurse Note What is the reason for your visit today? Post op 10/29/23 gastrojejunostomy w/o vagotomy, since surgery lost 10 lbs Who is your referring physician? Imad Asaad Are you having poor oral intake? Still on liquid diet Have you had unintentional weight loss of 15 lbs/7 Kg in the last 3-6 months? YES Bowels: diarrhea Wound: clean & dry Temperature: No Drains: No documented in this encounter [facility] 11-11-2023 Miscellaneous Notes Employer Forms for Patient/Caregiver Time Off of Work FMLA/STD Completed, signed by provider, and returned to below contact. Completed copy scanned in [facility] Date of Surgery: Estimated RTW date: Employer: Caroline Da[employer] with [employer] Date sent to employer: 11/11/23 Received fax confirmation: YES Received FMLA/STD paperwork on 10/29/23 Pending physician signature and completion. Surgeon: Dr. Alberts Date of Surgery (if known): 10/29/23 documented in this encounter [facility] 10-13-[address] Alberts, Aisha Julien, 1955, [id number], is scheduled for Procedure(s) (LRB): RESECTION SMALL INTESTINE AND ANASTOMOSIS LAPAROSCOPIC, ADDITIONAL PROCEDURE (N/A) on 10/29/2023 at [facility]. Update on Mr. Julien following discharge from [facility] for a blood infection (patient states E. Coli). States he has been prescribed Ertapenem, last dose scheduled for 10/26/23. Plan per [facility] 10/09/23 (Care Everywhere) Patient initially covered [...] isolated so far. Maintain meropenem. Thank you, Eber Dupont APRN.BROCK documented in this encounter [facility] 10-13-2023 Instructions Eber Dupont APRN.BROCK - 10/13/2023 11:16 AM EST PATIENT PREOPERATIVE INSTRUCTIONS Cleveland Alberts MD has scheduled you for your procedure at this surgery center: [facility]: [phone] --[id number] [address]. Please check in on the 1st floor [...] Procedures: - YOU MUST HAVE A RESPONSIBLE FAST FOOD ASSISTANT RESTAURANT MANAGER TAKE YOU HOME. A UTILITY WORKER OR DRUM HANDLER CANNOT BE MADE A RESPONSIBLE FAST FOOD ASSISTANT RESTAURANT MANAGER. - We recommend that a responsible person [...] Advance Directive, please fax a copy to [phone] or email to for it to be [...] chart that day. documented in this encounter [facility] 10-13-2023 History and physical note Images from the original note were [...] fevers. Neuro: No history of TIA's, stroke, COAL DRIER OPERATOR tumor, impaired sensorium, hemiplegia, paraplegia or quadraplegia. [...] 364 QTC Calculation (Bazett) 436 Calculated P Tebbetts 67 Calculated R Tebbetts -11 Calculated T Tebbetts 76 Impression Sinus rhythm LAE, consider biatrial enlargement Borderline intraventricular conduction delay Low voltage, extremity leads Abnormal R-wave progression, late transition Consider inferior infarct Borderline ST elevation, anterior leads Abnormal ECG 1864 Confirmed by MD BISWAS ANDREW ([id number]), film editor supervisor ANURAG WARD ([id number]) on 08/29/2023 12:45:41 PM Recent Results (from the past 89529 hour(s)) ECHO Collection Time: 08/17/23 1:08 PM [...] Type and Screen, 30 day Order Comments: [facility] Standing Status: Future Standing Expiration Date: 01/12/2024 famotidine (PEPCID) 20 mg tablet Sig: Take by mouth every 24 hours. ertapenem sodium (ERTAPENEM INJECTION) Sig: Ertapenem Active 1 GM IV Q24H 14 October 09, 2023 12:00am amino acids 5% - electrolytes - calcium in D20W 5 % solp 2,000 mL Sig: Inject intravenously every 12 hours. IV Planned Anesthetic: Per anesthesia choice Instructions Given to Patient: Instructions located in the after visit summary. Patient given verbal and written preop instructions and voices comprehension and compliance. SIGNATURE: Eber Dupont APRN.CNP PATIENT NAME: Aisha Julien DATE: October 13, 2023 TIME: 11:14 AM documented in this encounter [facility] 10-09-2023 Progress note Note Date/Time October 09, 2023 11:12am [facility] [address] [place] [address] Infect. Disease Progress Note Signed Patient: Aisha Julien MR#: [id number] : 1955 Acct:[id number] Age/Sex: 68 / M Adm Date: 4 Loc: 3T Room: [address] [place] [address] Type: ADM IN Attending Dr: Cali Patterson [...] Tablet) 5 mg PO QAM [facility] Stop: 10/07/24 08:59 Last Admin: 10/09/23 08:27 Dose: 5 mg Total Parenteral Nutrition 1 bag/ Potassium Acetate 20 meq/Potassium Phosphate 45 mmol/Sodium Chloride 75 meq/ Sodium Acetate 115 meq/ Calcium Gluconate 6 meq/Magnesium Sulfate 18 meq/ Multivitamins/Minerals 10 ml/ Zinc/Copper/Manganese/Selenium 1 ml/ Amino Acids 2,129.5867 mls @ 88.733 mls/hrIV DAILY@1800 [facility]; Protocol Stop: 10/06/24 17:59 Last Admin: 10/08/23 18:37 Dose: 88.7 mls/hr Fat Emulsion Intravenous 250 (ml/ IV Miscellaneous Supplies) 250 mls @ 21 mls/hr IV DAILY@1800 [facility] Stop: 10/06/24 17:59 Last Admin: 10/08/23 18:35 Dose: 21 mls/hr Meropenem (Merrem) 1 gm in 100 mls @ 33 mls/hr IV Q8H [facility] Last Admin: 10/09/23 06:37 Dose: 200 mls/hr Ondansetron HCl (Ondansetron 4 Mg/2 Ml Vial) 4 mg IV-PUSH Q8H PRN PRN Reason: Nausea And Vomiting Stop: 10/05/24 19:15 Pantoprazole Sodium (Pantoprazole 40 Mg Vial) 40 mg IV-PUSH DAILY [facility] Stop: 10/07/24 08:59 Last Admin: 10/09/23 08:28 [...] the office as an outpatient Documented By: Eber Suarez MD 10/09/23 1105 Signed By: <Electronically signed by MD Eber Suarez> 10/09/23 1111 [facility] Work Phone: 1(830) 553-688702-14-2024 Progress note Author Cali Patterson [facility] October 08, 2023 8:47pm Note Date/Time October 08, 2023 12:23pm [facility] [address] [place] [address] Hospitalist Progress Note Signed Patient: Aisha Julien MR#: [id number] : 1955 Acct:[id number] Age/Sex: 68 / M Adm Date: 4 Loc: 3T Room: [address] [place] [address] Type: ADM IN Attending Dr: Cali Patterson [...] edema BLE, calves nontender SKIN- abdominal with X-pjp-vfngffba with yellow drainage, erythema around insertion site [...] Obstructive Duodenal mass -pending surgery 10/29/23 at [facility] -has been on TPN/ lipids- dietitian [...] by Cali Patterson DO> 10/08/232046 [facility] Work Phone: 1(374) 743-683702-14-2024 Consult note Author Eber Suarez [facility] October 08, 2023 10:53am Note Date/Time October 08, 2023 10:42am [facility] [address] [place] [address] Infect. Disease Consult Note Signed Patient: Aisha Julien MR#: [id number] : 1955 Acct:[id number] Age/Sex: 68 / M Adm Date: 4 Loc: 3T Room: [address] [place] [address] Type: ADM IN Attending Dr: Cali Patterson DO Copies to: MD Eber Velásquez MD Shawn J Warner, DO~ HPI [...] through the surgery. CC: Cali Patterson DO [facility] Medical History (Updated 10/08/23 @ 10:51 by Eber Suarez MD) Kidney failure Problem List clean-up [...] List clean-up per request of Phys. [facility]HR [facility] History of tonsillectomy Problem List clean-up per request of Phys. EHR Cmte H/O: knee surgery scopes bilateral knee x 3 Problem List clean-up per request of Phys. EHR [facility] Family History Father Heart disease History [...] Tablet) 5 mg PO QAM [facility] Stop: 10/07/24 08:59 Last Admin: 10/08/23 09:34 Dose: 5 mg Vancomycin HCl 1.25 gm/ (Dextrose) 275 mls @ 183.333 mls/hr IV Q24H [facility] Stop: 10/06/24 19:29 Last Admin: 10/07/23 20:43 [...] 250 mls @ 21 mls/hr IV DAILY@1800 [facility] Stop: 10/06/24 17:59 Last Admin: 10/07/23 18:12 Dose: 21 mls/hr Meropenem (Merrem) 1 gm in 100 mls @ 33 mls/hr IV Q8H [facility] Last Admin: 10/08/23 07:00 Dose: 200 mls/hr [...] isolated so far. Maintain meropenem. Documented By: Eber Suarez MD 10/08/23 1037 Signed By: <Electronically signed by MD Eber Suarez> 10/08/23 1053 [facility] Work Phone: 1(623) 397-809402-13-2024 Progress note Author Cali Patterson [facility] October 07, 2023 9:35pm Note Date/Time October 07, 2023 11:41am [facility] [address] [place] [address] Hospitalist Progress Note Signed Patient: Aisha Julien MR#: [id number] : 1955 Acct:[id number] Age/Sex: 68 / M Adm Date: 4 Loc: Room: [address] [place] [address] Type: ADM IN Attending Dr: Cali Patterson [...] and planned surgery of duodenal mass at [facility] October 28 Exam Physical Exam Vital [...] edema BLE, calves nontender SKIN- abdominal with B-pvx-yugotatb with yellow drainage, erythema around insertion site [...] Obstructive Duodenal mass -pending surgery 10/29/23 at [facility] -has been on TPN/ lipids- dietitian [...] <Electronically signed by Cali Patterson DO> 10/07/23 0122 [facility] Work Phone: 1(161) 662-212002-13-2024 History and physical note Author Cali Patterson [facility] October 06, 2023 10:09pm Note Date/Time October 06, 2023 10:02pm [facility] [address] [place] [address] Hospitalist H&P Signed Patient: Aisha Julien MR#: [id number] : 1955 Acct:[id number] Age/Sex: 68 / M Adm Date: 4 Loc: Room: [address] [place] [address] Type: ADM IN Attending Dr: Cali Patterson [...] the duodenum,he is currently being seen at [facility] for plans for what he described [...] negative unless noted below or in HPI [facility] Medical History (Updated 10/06/23 @ 22:08 by [...] 17:17 Lymph % (Auto) N/A 10/06/23 17:17 [place] % (Auto) N/A 10/06/23 17:17 Eos % (Auto) N/A 10/06/23 17:17 Baso % (Auto) N/A 10/06/23 17:17 Nucleat RBC Rel Count N/A 10/06/23 17:17 Neut # (Auto) N/A 10/06/23 17:17 Lymph # (Auto) N/A 10/06/23 17:17 [place] # (Auto) N/A 10/06/23 17:17 Eos # [...] pH 5.0 (5.0-9.0) 10/06/23 18:34 Ur Specific [place] 1.015 (1.001-1.030) 10/06/23 18:34 Urine Protein Negative [...] Plan: ? Currently being worked up at [facility], stable (6) On total parenteral nutrition [...] <Electronically signed by Cali Patterson DO> 10/06/232208 [facility] Work Phone: 1(220) 780-530502-12-2024 Telephone encounter Note* Telephone Encounter - Jessie Zamora RN - 10/06/2023 5:03 PM EST Called patient and informed him of surgery date with Dr. Alberts and Dr. Bryan on 10/29/23. Patient informed me that he was currently in the [facility] ER due to low bp. Informed patient to keep me updated on how he was feeling. [facility]02-12-2024 Miscellaneous Notes* Telephone Encounter - Jessie Zamora RN - 10/06/2023 5:03 PM EST Called patient and informed him of surgery date with Dr. Alberts and Dr. Bryan on 10/29/23. Patient informed me that he was currently in the [facility] ER due to low bp. Informed patient to keep me updated on how he was feeling. [facility] Miscellaneous Notes* Telephone Encounter - Jessie Zamora RN - 10/06/2023 12:03 PM EST Updated short term disability paperwork was updated and faxed on 10/06/23. [facility]axed to [facility] and to [facility]. documented in [facility] History of Present illness Narrative* Cleevland Alberts MD - 10/03/2023 4:29 PM EST [...] volume. Abdomen is soft and non distended Replenisher present: Yes () ASSESSMENT 68 year old [...] Level: 5 - High Cleveland Alberts MD [facility] October 02, 2023 documented in [facility] History of Present illness Narrative* Solange Harmon RN - 10/01/2023 8:15 AM EST Radiology Service Progress Note DATE OF SERVICE: [...] Value Ref Range Status 09/05/2023 95 >=60 mL/min/1.73m Final Comment: Estimated Glomerular Filtration Rate (eGFR) is calculated using the 2020 CKD-EPI creatinine equation. This equation utilizes serum creatinine, sex, and age as parameters. The creatinine assay has traceable calibration to isotope dilution- mass spectrometry. Refer to KDIGO guidelines for clinical interpretation. In patients with unstable renal function, e.g. those with acute kidney injury, the eGFRmay not accurately reflect actual GFR. P.O.C.T. RESULTS: POC done: Yes, See Lab Tab October 01, 2023 TREATMENT: N/A IV SITE: Ambulatory: A peripheral IV was started in the Left antecubital site with a Angio cath: 20gauge. IV SITE APPEARANCE: Clean,Dry and Intact SIGNATURE: Solange Harmon RN PATIENT NAME: Aisha Julien DATE: October 01, 2023 TIME: 8:30 AM * Jessy Guerra, RT(R) - 10/01/2023 8:15 AM EST Radiology Service Progress Note PATIENT NAME: Aisha Julien DATE OF SERVICE: October 01, 2023 TIME: 9:05 AM PATIENT IDENTITY VERIFICATION COMPLETED USING TWO (2) IDENTIFIERS: Name and Date of confirmedby patient verbally. FALL SCREENING: Has the patient [...] RT Norman(R) October 01, 2023 9:05 AM documented [facility] History of Past illness Narrative* Problem Noted Date Diagnosed Date Resolved Date Dehydration 08/28/2023 09/05/2023 documented as of this encounter (statuses as of 10/03/2023) [facility]01-04[facility]20[facility] History of Past illness Narrative* Problem Noted Date Diagnosed Date Resolved Date Dehydration 08/28/2023 09/05/2023 documented as of this encounter (statuses as of 10/06/2023) [facility]04[facility] History of Past illness Narrative* Problem Noted Date Diagnosed Date Resolved Date Dehydration 08/28/2023 09/05/2023 documented as of this encounter (statuses as of 10/07/2023) [facility]01-04-20[facility] History of Past illness Narrative* Problem Noted Date Diagnosed Date Resolved Date Dehydration 08/28/2023 09/05/2023 Hyperlipidemia 01/28/2023 10/13/2023 10/13/2023 Mild mitral regurgitation 01/28/2023 10/13/2023 Mild tricuspid regurgitation 01/28/2023 10/13/2023 10/13/2023 documented as of this encounter (statuses as of 10/13/2023) [facility] History of Past illness Narrative* Problem Noted Date Diagnosed Date Resolved Date Dehydration 08/28/2023 09/05/2023 Hyperlipidemia 01/28/2023 10/13/2023 10/13/2023 Mild mitral regurgitation 01/28/2023 10/13/2023 Mild tricuspid regurgitation 01/28/2023 10/13/2023 10/13/2023 documented as of this encounter (statuses as of 10/13/2023) [address]04-2024 History of Past illness Narrative* Problem Noted Date Diagnosed Date Resolved Date Dehydration 08/28/2023 09/05/2023 Hyperlipidemia 01/28/2023 10/13/2023 10/13/2023 Mild mitral regurgitation 01/28/2023 10/13/2023 Mild tricuspid regurgitation 01/28/2023 10/13/2023 10/13/2023 documented as of this encounter (statuses as of 11/11/2023) [facility] History of Past illness Narrative* Problem Noted Date Diagnosed Date Resolved Date Dehydration 08/28/2023 09/05/2023 Hyperlipidemia 01/28/2023 10/13/2023 10/13/2023 Mild mitral regurgitation 01/28/2023 10/13/2023 Mild tricuspid regurgitation 01/28/2023 10/13/2023 10/13/2023 documented as of this encounter (statuses as of 11/17/2023) [facility] History of Past illness Narrative* Problem Noted Date Diagnosed Date Resolved Date Dehydration 08/28/2023 09/05/2023 Hyperlipidemia 01/28/2023 10/13/2023 10/13/2023 Mild mitral regurgitation 01/28/2023 10/13/2023 Mild tricuspid regurgitation 01/28/2023 10/13/2023 10/13/2023 documented as of this encounter (statuses as of 11/17/2023) [facility] History of Past illness Narrative* Problem Noted Date Diagnosed Date Resolved Date Dehydration 08/28/2023 09/05/2023 Hyperlipidemia 01/28/2023 10/13/2023 10/13/2023 Mild mitral regurgitation 01/28/2023 10/13/2023 Mild tricuspid regurgitation 01/28/2023 10/13/2023 10/13/2023 documented as of this encounter (statuses as of 11/18/2023) [facility] History of Past illness Narrative* Problem Noted Date Diagnosed Date Resolved Date Dehydration 08/28/2023 09/05/2023 Hyperlipidemia 01/28/2023 10/13/2023 10/13/2023 Mild mitral regurgitation 01/28/2023 10/13/2023 Mild tricuspid regurgitation 01/28/2023 10/13/2023 10/13/2023 documented as of this encounter (statuses as of 12/04/2023) [facility] History of Past illness Narrative* Problem Noted Date Diagnosed Date Resolved Date Dehydration 08/28/2023 09/05/2023 Hyperlipidemia 01/28/2023 10/13/2023 10/13/2023 Mild mitral regurgitation 01/28/2023 10/13/2023 Mild tricuspid regurgitation 01/28/2023 10/13/2023 10/13/2023 documented as of this encounter (statuses as of 12/09/2023) [facility] History of Past illness Narrative* Problem Noted Date Diagnosed Date Resolved Date Dehydration 08/28/2023 09/05/2023 Hyperlipidemia 01/28/2023 10/13/2023 10/13/2023 Mild mitral regurgitation 01/28/2023 10/13/2023 Mild tricuspid regurgitation 01/28/2023 10/13/2023 10/13/2023 documented as of this encounter (statuses as of 12/12/2023) [facility]23 Miscellaneous Notes* Telephone Encounter - Jessie Zamora RN - 08/14/2023 9:12 AM EST Kindra from [facility] returned call yesterday stating that she had [...] 08/13/2023 10:24 AM EST Call made to [facility] - patient employer to get [place] paperwork for him. Left a VM with Kindra. Gave her cell number to call back and/or fax number to fax paperwork. documented in this encounterMer[facility]12[facility]23 History and physical note * Cleveland Alberts MD - 08/07/2023 2:25 PM [...] and symmetric. Sensation grossly intact. Abdomen: Negative Replenisher present: Yes () ASSESSMENT 68-year-old male with [...] Level: 5 - High Cleveland Alberts MD [facility] August 07, 2023 documented in this encounterMer[facility]12-13-2023 Miscellaneous Notes* Telephone Encounter - Nataly Buenomu Hodge - 08/06/2023 9:07 AM EST Received records from [facility]. Scanned into [employer]. Please review, thank you! documented in this encounterMercy [facility]12-12-2023 Miscellaneous Notes* Telephone Encounter - Jessie Zamora RN - 08/05/2023 10:42 AM EST Called patient and spoke with him about coming for a visit with Dr. Alberts. Patient understands he was referred by Dr. Linder. Asked patient to bring any past medical history with him. Patient understanding and thankful for call and appointment. *Requested images to be pushed from [facility] 08/05. Also faxed release of information to patients PCP - Dr. Cannon in [facility]. documented in this encounterMer[facility]12-[facility]-2023 Miscellaneous Notes* Telephone Encounter - Vicki Burris - 07/29/2023 3:36 PM EST New patient referral from Dr. Linder's office ([phone]) to Dr. Alberts for Duodenal Mass. Contacted the office to resend records. Please advise on scheduling documented in this encounterMercy [facility]12-02-2023 Progress note Author Jose A Calzada [facility] July 26, 2023 11:49am Note Date/Time July 26, 2023 1 1:49am [facility] [address] [place] [address] Nephrology Progress Note Signed Patient: Aisha Julien MR#: [id number] : 1955 Acct:[id number] Age/Sex: 68 / M Adm Date: 3 Loc: Room: [address] [place] [address] Type: ADM IN Attending Dr: Gela Eller [...] Ringers) 1,000 mls @ 75 mls/hr IV .[id number] [facility] Stop: 07/24/24 13:14 Last Admin: 07/26/23 [...] by Jose A Calzada MD> 07/26/23 1149 [facility] Work Phone: 1(909) 298-722012-01-2023 Progress note Author Gela Eller [facility] July 25, 2023 12:59pm Note Date/Time July 25, 2023 1 2:59pm [facility] [address] [place] [address] Hospitalist Progress Note Signed Patient: Aisha Julien MR#: [id number] : 1955 Acct:[id number] Age/Sex: 68 / M Adm Date: 3 Loc: Room: [address] [place] [address] Type: ADM IN Attending Dr: Gela Eller [...] Cap.Er.24h PO 07/24/24 08:59 QAM [facility] A&P - Hospitalist Assessment/Plan (1) Duodenal mass: [...] signed by Gela Eller MD> 07/25/23 1259 [facility] Work Phone: 1(260) 925-978612-01-2023 History and physical note Author Gela Eller [facility] July 25, 2023 12:57pm Note Date/Time July 24, 2023 4:18pm [facility] [address] [place] [address] Hospitalist H&P Signed Patient: Aisha Julien MR#: [id number] : 1955 Acct:[id number] Age/Sex: 68 / M Adm Date: 3 Loc: Room: [address] [place] [address] Type: ADM IN Attending Dr: Gela Eller [...] any coronary artery disease. Ventriculogram showed ejection [id number]% Admission EKG showed normal sinus rhythm without [...] mass, portal vein/SMV thrombosis cannot be excluded. [facility] Medical History (Updated 07/25/23 @ 12:42 by [...] finasteride 5 mg tablet 5 mg PO [facility] 01/15/23 [History Confirmed 07/24/23] potassium gluconate 595 mg (99 mg) tablet 99 mg PO [facility] 01/15/23 [History Confirmed 07/24/23] diltiazem HCl [...] % (Auto) 12.6 % (.) 07/24/23 12:28 [place] % (Auto) 10.3 % (.) 07/24/23 12:28 Eos % (Auto) 1.0 % (.) 07/24/23 12:28 Baso % (Auto) 0.5 % (.) 07/24/23 12:28 Nucleat RBC Rel Count 0.2 /100 WBC (0-0.5) 07/24/23 12:28 Neut # (Auto) 5.5 x10E3/uL (1.8-7.7) 07/24/23 12:28 Lymph # (Auto) 0.9 x10E3/uL (1.00-4.8) L 07/24/23 12:28 [place] # (Auto) 0.8 x10E3/uL (0.0-0.8) 07/24/23 12:28 [...] pH 5.5 (5.0-9.0) 07/24/23 13:54 Ur Specific [place] 1.015 (1.001-1.030) 07/24/23 13:54 Urine Protein 30 [...] signed by Gela Eller MD> 07/25/23 1257 [facility] Work Phone: 1(182) 545-467512-01-2023 Consult note Author Jose A Calzada [facility] July 25, 2023 12:45pm Note Date/Time July 25, 2023 1 2:45pm [facility] [address] [place] [address] Nephrology Consult Note Signed Patient: Aisha Julien MR#: [id number] : 1955 Acct:[id number] Age/Sex: 68 / M Adm Date: 3 Loc: Room: [address] [place] [address] Type: ADM IN Attending Dr: Gela Eller [...] 12 system review is negative this morning [facility] Medical History (Updated 07/25/23 @ 12:42 by [...] (Finasteride 5 Mg Tablet) [facility]: 07/24/24 08:59 Hydralazine HCl (Hydralazine 20 Mg/Ml Vial) 10 mg IV-PUSH Q4H PRN PRN Reason: if SBP > 185 Stop: 07/23/24 16:29 Hydromorphone HCl (Hydromorphone 1 Mg/Ml Syringe) 0.25 mg IV-PUSH Q4H PRN PRN Reason: pain Potassium Chloride/Sodium Chloride (0.9% Nacl-40 Meq Kcl) 1,000 mls @ 150 mls/hr IV .Q6H40M [facility] Stop: 07/23/24 13:44 Last Admin: 07/25/23 11:24 Dose: 150 mls/hr Pantoprazole Sodium (Pantoprazole 40 Mg Vial) 40 mg IV-PUSH BID [facility] Stop: 07/23/24 20:59 Last Admin: 07/25/23 07:59 [...] Cap.Er.24h) 0.4 mg PO QAM [facility] Stop: 07/24/24 08:59 Exam Physical Exam Vital [...] Appearance Clear Urine pH 5.5 Ur Specific [place] 1.015 Urine Protein 30 H Urine Glucose (UA) Normal Urine Ketones Trace H Urine Occult Blood Negative Urine Nitrite Negative Ur Leukocyte Esterase Negative Urine RBC 5-9 H Urine WBC 0-1 Urine Bacteria None seen 07/25/23 05:46 BUN 44 H Creatinine 2.86 H D Albumin 3.4 L Urine Color Urine Appearance Urine pH Ur Specific [place] Urine Protein Urine Glucose (UA) Urine Ketones [...] Santa Jr., D.O.07/24/2023 2:43 PM Dictation Location: [place] [address] Any impression(s) listed above is documentation that [...] by Jose A Calzada MD> 07/25/23 1245 [facility] Work Phone: 1(517) 857-534512-01-2023 [facility] Consult note Author Nohemy Linder [facility] July 24, 2023 4:38pm Note Date/Time July 24, 2023 4:35pm [facility] [address] [place], [place] [id number] Gastroenterology Consult Note Signed Patient: Aisha Julien MR#: [id number] : 1955 Acct:[id number] Age/Sex: 68 / M Adm Date: 3 Loc: 3T Room: [address] [place] [address] Type: ADM IN Attending Dr: Gela Eller [...] negative unless noted below or in HPI [facility] Medical History (Updated 07/24/23 @ 16:37 by [...] finasteride 5 mg tablet 5 mg PO [facility] 01/15/23 [History Confirmed 07/24/23] potassium gluconate 595 mg (99 mg) tablet 99 mg PO [facility] 01/15/23 [History Confirmed 07/24/23] Exam Physical [...] % (Auto) 75.6 Lymph % (Auto) 12.6 [place] % (Auto) 10.3 Eos % (Auto) 1.0 Baso % (Auto) 0.5 Nucleat RBC Rel Count 0.2 Neut # (Auto) 5.5 Lymph # (Auto) 0.9 L [place] # (Auto) 0.8 Eos # (Auto) 0.1 [...] Color Urine Appearance Urine pH Ur Specific [place] Urine Protein Urine Glucose (UA) Urine Ketones Urine Occult Blood Urine Nitrite Urine Bilirubin Urine Urobilinogen Ur Leukocyte Esterase Urine RBC Urine WBC Ur Squamous Epith Cells Urine Bacteria Hyaline Casts 07/24/23 07/24/23 07/24/23 12:28 12:28 13:54 Corrected WBC Uncorrected WBC Count RBC Hgb Hct MCV MCH MCHC RDW Plt Count MPV Neut % (Auto) Lymph % (Auto) [place] % (Auto) Eos % (Auto) Baso % (Auto) Nucleat RBC Rel Count Neut # (Auto) Lymph # (Auto) [place] # (Auto) Eos # (Auto) Baso # [...] Appearance Clear Urine pH 5.5 Ur Specific [place] 1.015 Urine Protein 30 H Urine Glucose [...] by Nohemy Linder MD> 07/24/231637 [facility] Work Phone: 1([phone]) 215-434507-01-2023 Evaluation note* Encounter Date Diagnosis Assessment Notes Treatment Notes Treatment Clinical Notes Feb, Visit for suture removal (ICD-10 - Z48.02) sutures removed successfully--see procedural note. wound healed up well. no questions or concerns. follow up with PCP prn. Feb, Laceration of nose, initial encounter (ICD-10 - S01.21XA) lac repair done in [facility] [employer] Other 05-26-2023 Discharge summary Author Joselito Madsen [facility] January 17, 2023 10:24am Note Date/Time January 17, 2023 10:22 am [facility] [address] [place] [address] Discharge Summary Signed Patient: Aisha Julien MR#: [id number] : 1955 Acct:[id number] Age/Sex: 67 / M Adm Date: 3 [...] Low-Cholesterol Additional Instructions: DISCHARGE INSTRUCTIONS FOR CARDIAC APPLIED STATISTICIAN PHONE NUMBER OF YOUR PHYSICIAN: [phone] PROCEDURE: Heart Cath The following instructions have [...] cold, numb, blue or white, call the pattern hand immediately. 4. ACTIVITY: You are advised to [...] signed by Joselito Madsen DO> 01/17/23 1024 [facility] Work Phone: [phone]) 279-506205-26-2023 [facility]Mar[facility]03-30-2022 Evaluation note* Encounter Date Diagnosis Assessment Notes Treatment Notes Treatment Clinical Notes Oct, Abdominal pain (ICD-10 - R10.9) OBTAIN RECORDS FROM [facility] GI OBTAIN COLONOSCOPY AND CT SCAN[facility] Oct, Gastritis without bleeding, unspecified chronicity, unspecified gastritis type (ICD-10 - K29.70) Oct, GERD (gastroesophageal reflux disease) (ICD-10 - K21.9) STOP FAMOTIDINE [employer] Other 03-16-2022 History of Present illness Narrative* Caity Hamilton RCP - 11/07/2021 12:30 PM EDT The patient was educated on the use of an event monitor. The patient's comprehension was high. The patient was able to verbalize recall. The patient was instructed on how and when to return the monitor. [facility] Work Phone: [phone]) 164-247003-16-2022 Note [facility] Carotid Procedure Patient Name WILY LEONARD Date of Study 11/07/2021 L Date of 1955 Gender Male Age 66 year(s) Race Room Number Corporate ID [id number] # Patient Acct [id number] # MR # [id number] Outbound Sales Consultant Jocelyn Mcghee, Interpreting Estephania Pichardo Physician Referring Referring Physician RENE CANNON, Nurse RACHEL* Practitioner INOCENCIO GUTIERREZ ELA * Procedure Type of Study: Cerebral: Carotid, Carotid Scan Bilateral. Indications for Study:Bruit, carotid. Patient Status:Routine. Conclusions Summary Mild increase in prox CCA velocity, without spectral broadening, not considered significant. Minimal plaque right CCA. Negative left sided study. Antegrade flow in the vertebrals. Signature Electronically signed by RT Gómez(R)(M)(CT)([facility])(Outbound Sales Consultant) on 11/07/2021 11:33 AM Findings: Right Impression: [...] !Mid ICA !87.54 !27.97 (more content not included)...[facility] CPACSEvaluation note* Diagnosis Chest pain, unspecified type Syncope, unspecified syncope type documented in this encounter [employer] Work Phone: evaluation note* Diagnosis Bruit Other symptoms involving cardiovascular system documented in this encounter [employer] Phone: [email or web address] noteNo InformationNoresearch [facility] center [employer] Other Evaluation noteNo assessment information available [facility] Work Phone: Evaluation note* Diagnosis Onset Date Resolution Status Acute renal failure acute Epigastric pain acute Hypokalemia acute Hypotension acute Small bowel mass acute Unintentional weight loss ac [facility] Work Phone: Evaluation note* Diagnosis Onset Date Resolution Status Acute renal failure acute Duodenal mass acute Epigastric pain acute Hypokalemia acute Hypotension acute Small bowel mass acute Unintentional weight loss [facility] Work Phone: Evaluation note* Diagnosis Gastric outlet obstruction- Primary Acquired hypertrophic pyloric stenosis [facility] Diagnosis Gastric outlet obstruction- Primary 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) Encounter for attention to gastrostomy (HCC) Attention to gastrostomy Severe protein-calorie malnutrition (HCC) Other severe protein-calorie malnutrition [facility] Diagnosis Onset Date Resolution Status Hypokalemia acute Hypotension acute Leukocytosis acute On total parenteral nutrition (TPN) acute Skin infection at gastrostomy tube site [facility] Work Phone: Evaluation note* Diagnosis Onset Date Resolution Status Duodenal mass acute Duodenal mass acute Gram-negative bacteremia acu te Hypokalemia acute Hypotension acute Leukocytosis acute On total parenteral nutrition (TPN) acute Skin infection at gastrostomy tube site [facility] Work Phone: Evaluation note* Diagnosis Pre-op [...] hypertrophic pyloric stenosis [facility] Diagnosis 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 Encounter for attention to gastrostomy (HCC) Attention to gastrostomy Malnutrition of moderate degree (HCC) Malnutrition of moderate degree [facility] Diagnosis 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 neuroendocrine tumor of other sites [facility] Diagnosis Anemia, unspecified type- Primary [facility]* Diagnosis 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 neuroendocrine tumor of other sites [facility] Diagnosis 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 Gastric outlet obstruction Acquired hypertrophic pyloric stenosis [facility] Diagnosis 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 neuroendocrine tumor of other sites Anemia, unspecified type [facility]* Diagnosis 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 neuroendocrine tumor of other sites [facility] Diagnosis 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 [facility] Diagnosis 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 [facility] Diagnosis 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 [facility]* Diagnosis 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 neuroendocrine tumor of other sites [facility] Diagnosis 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 neuroendocrine tumor of other sites [facility]* Diagnosis 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 neuroendocrine tumor of other sites [facility]* Diagnosis 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 Malignant neoplasm of pancreas, unspecified location of malignancy (HCC) Anemia, unspecified type [facility]* Diagnosis Pre-op examination- Primary Preoperative examination, unspecified Primary hypertension Unspecified essential hypertension Stage 2 chronic kidney disease Alcoholism (HCC) Other and unspecified alcohol dependence, unspecified drinking behavior Gastroesophageal reflux disease without esophagitis Esophageal reflux 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 neuroendocrine tumor of other sites [facility]* Diagnosis Pre-op examination- Primary Preoperative examination, unspecified Primary hypertension Unspecified essential hypertension Stage 2 chronic kidney disease Alcoholism (HCC) Other and unspecified alcohol dependence, unspecified drinking behavior Gastroesophageal reflux disease without esophagitis Esophageal reflux 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 [facility]* Diagnosis Gastric outlet obstruction Acquired hypertrophic pyloric stenosis Pre-op examination- Primary Preoperative examination, unspecified Primary hypertension Unspecified essential hypertension Stage 2 chronic kidney disease Alcoholism (HCC) Other and unspecified alcohol dependence, unspecified drinking behavior Gastroesophageal reflux disease without esophagitis Esophageal reflux 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 [facility] Diagnosis Pre-op examination- Primary Preoperative examination, unspecified Primary hypertension Unspecified essential hypertension Stage 2 chronic kidney disease Alcoholism (HCC) Other and unspecified alcohol dependence, unspecified drinking behavior Gastroesophageal reflux disease without esophagitis Esophageal reflux 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 Malignant neoplasm of pancreas, unspecified location of malignancy (HCC) documented [facility]* Diagnosis Pre-op examination- Primary Preoperative examination, unspecified Primary hypertension Unspecified essential hypertension Stage 2 chronic kidney disease Alcoholism (HCC) Other and unspecified alcohol dependence, unspecified drinking behavior Gastroesophageal reflux disease without esophagitis Esophageal reflux 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 Lung mass Swelling, mass, or lump in chest Bone lesion Disorder of bone and cartilage, unspecified [facility]* Diagnosis Pre-op examination- Primary Preoperative examination, unspecified Primary hypertension Unspecified essential hypertension Stage 2 chronic kidney disease Alcoholism (HCC) Other and unspecified alcohol dependence, unspecified drinking behavior Gastroesophageal reflux disease without esophagitis Esophageal reflux 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 neuroendocrine tumor of other sites Lung mass Swelling, mass, or lump in chest Soft tissue injury Open wound(s) (multiple) of unspecified site(s), without mention of complication [facility] Diagnosis Pre-op examination- Primary Preoperative examination, unspecified Primary hypertension Unspecified essential hypertension Stage 2 chronic kidney disease Alcoholism (HCC) Other and unspecified alcohol dependence, unspecified drinking behavior Gastroesophageal reflux disease without esophagitis Esophageal reflux 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 neuroendocrine tumor of other sites Lung mass Swelling, mass, or lump in chest documented [facility]* Diagnosis Pre-op examination- Primary Preoperative examination, unspecified Primary hypertension Unspecified essential hypertension Stage 2 chronic kidney disease Alcoholism (HCC) Other and unspecified alcohol dependence, unspecified drinking behavior Gastroesophageal reflux disease without esophagitis Esophageal reflux 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 Lung mass Swelling, mass, or lump in chest documented [facility]* Diagnosis 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 Benign essential hypertension (CMS/HCC) Essential hypertension, benign Hypertensive nephropathy (CMS/HCC) Unspecified hypertensive kidney disease with chronic kidney disease stage I through stage IV, or unspecified Stage 2 chronic kidney disease Microalbuminuria Proteinuria [facility]* Diagnosis Pre-op examination- Primary Preoperative examination, unspecified Primary hypertension Unspecified essential hypertension Stage 2 chronic kidney disease Alcoholism (HCC) Other and unspecified alcohol dependence, unspecified drinking behavior Gastroesophageal reflux disease without esophagitis Esophageal reflux 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 neuroendocrine tumor of other sites [facility]* Diagnosis Pre-op examination- Primary Preoperative examination, unspecified Primary hypertension Unspecified essential hypertension Stage 2 chronic kidney disease Alcoholism (HCC) Other and unspecified alcohol dependence, unspecified drinking behavior Gastroesophageal reflux disease without esophagitis Esophageal reflux 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 Lung mass Swelling, mass, or lump in chest documented [facility]* Diagnosis Pre-op examination- Primary Preoperative examination, unspecified Primary hypertension Unspecified essential hypertension Stage 2 chronic kidney disease Alcoholism (HCC) Other and unspecified alcohol dependence, unspecified drinking behavior Gastroesophageal reflux disease without esophagitis Esophageal reflux 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 neuroendocrine tumor of other sites [facility]* Diagnosis Pre-op examination- Primary Preoperative examination, unspecified Primary hypertension Unspecified essential hypertension Stage 2 chronic kidney disease Alcoholism (HCC) Other and unspecified alcohol dependence, unspecified drinking behavior Gastroesophageal reflux disease without esophagitis Esophageal reflux 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 neuroendocrine tumor of other sites [facility]* Diagnosis Pre-op examination- Primary Preoperative examination, unspecified Primary hypertension Unspecified essential hypertension Stage 2 chronic kidney disease Alcoholism (HCC) Other and unspecified alcohol dependence, unspecified drinking behavior Gastroesophageal reflux disease without esophagitis Esophageal reflux 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 neuroendocrine tumor of other sites [facility]* Diagnosis Pre-op examination- Primary Preoperative examination, unspecified Primary hypertension Unspecified essential hypertension Stage 2 chronic kidney disease Alcoholism (HCC) Other and unspecified alcohol dependence, unspecified drinking behavior Gastroesophageal reflux disease without esophagitis Esophageal reflux 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 GI bleed- Primary Hemorrhage of gastrointestinal tract, unspecified Acute blood loss anemia Acute posthemorrhagic anemia Acute gastrointestinal hemorrhage Hemorrhage of gastrointestinal tract, unspecified Bloody diarrhea Diarrhea Lightheadedness Dizziness and giddiness Neuroendocrine tumor 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 Anemia Anemia, unspecified HTN (hypertension) Unspecified essential hypertension Hematemesis with nausea Melena Blood in stool Hematochezia Blood in stool 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 Acute blood loss anemia Acute posthemorrhagic anemia Gastrointestinal hemorrhage Hemorrhage of gastrointestinal tract, unspecified 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 neuroendocrine tumor of other sites [facility] Diagnosis Pre-op examination- Primary Preoperative examination, unspecified Primary hypertension Unspecified essential hypertension Stage 2 chronic kidney disease Alcoholism (HCC) Other and unspecified alcohol dependence, unspecified drinking behavior Gastroesophageal reflux disease without esophagitis Esophageal reflux 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 GI bleed- Primary Hemorrhage of gastrointestinal tract, unspecified Acute blood loss anemia Acute posthemorrhagic anemia Acute gastrointestinal hemorrhage Hemorrhage of gastrointestinal tract, unspecified Bloody diarrhea Diarrhea Lightheadedness Dizziness and giddiness Neuroendocrine tumor 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 Anemia Anemia, unspecified HTN (hypertension) Unspecified essential hypertension Hematemesis with nausea Melena Blood in stool Hematochezia Blood in stool 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 Acute blood loss anemia Acute posthemorrhagic anemia Gastrointestinal hemorrhage Hemorrhage of gastrointestinal tract, unspecified Anemia, unspecified type- Primary 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 [facility] Diagnosis Welcome to Medicare preventive visit- Primary Advance directive in chart Encounter for screening for other disorder Screening for alcohol problem Screening for alcoholism Benign essential hypertension (CMS/HCC) Essential hypertension, benign Hypertensive ventricular hypertrophy without heart failure (CMS/HCC) Hypertensive nephropathy (CMS/HCC) Unspecified hypertensive kidney disease with chronic kidney disease stage I through stage IV, or unspecified Stage 3a chronic kidney disease (HCC) (CMS/HCC) Primary malignant neuroendocrine tumor of pancreas (CMS/HCC) 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 (CMS/HCC) Mixed hyperlipidemia (CMS/HCC) Mixed hyperlipidemia Alcoholism (CMS/HCC) Other and unspecified alcohol dependence, unspecified drinking behavior Cardiovascular event risk 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 GI bleed- Primary Hemorrhage of gastrointestinal tract, unspecified Acute blood loss anemia Acute posthemorrhagic anemia Acute gastrointestinal hemorrhage Hemorrhage of gastrointestinal tract, unspecified Bloody diarrhea Diarrhea Lightheadedness Dizziness and giddiness Neuroendocrine tumor (HCC) 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 Anemia Anemia, unspecified HTN (hypertension) Unspecified essential hypertension Hematemesis with nausea Melena Blood in stool Hematochezia Blood in stool 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 Acute blood loss anemia Acute posthemorrhagic anemia Gastrointestinal hemorrhage Hemorrhage of gastrointestinal tract, unspecified 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 [facility] Diagnosis Pre-op examination- Primary Preoperative examination, unspecified Primary hypertension Unspecified essential hypertension Stage 2 chronic kidney disease Alcoholism (HCC) Other and unspecified alcohol dependence, unspecified drinking behavior Gastroesophageal reflux disease without esophagitis Esophageal reflux 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 GI bleed- Primary Hemorrhage of gastrointestinal tract, unspecified Acute blood loss anemia Acute posthemorrhagic anemia Acute gastrointestinal hemorrhage Hemorrhage of gastrointestinal tract, unspecified Bloody diarrhea Diarrhea Lightheadedness Dizziness and giddiness Neuroendocrine tumor (HCC) 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 Anemia Anemia, unspecified HTN (hypertension) Unspecified essential hypertension Hematemesis with nausea Melena Blood in stool Hematochezia Blood in stool 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 Acute blood loss anemia Acute posthemorrhagic anemia Gastrointestinal hemorrhage Hemorrhage of gastrointestinal tract, unspecified 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 neuroendocrine tumor of other sites [facility] Diagnosis Pre-op examination- Primary Preoperative examination, unspecified Primary hypertension Unspecified essential hypertension Stage 2 chronic kidney disease Alcoholism (HCC) Other and unspecified alcohol dependence, unspecified drinking behavior Gastroesophageal reflux disease without esophagitis Esophageal reflux 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 GI bleed- Primary Hemorrhage of gastrointestinal tract, unspecified Acute blood loss anemia Acute posthemorrhagic anemia Acute gastrointestinal hemorrhage Hemorrhage of gastrointestinal tract, unspecified Bloody diarrhea Diarrhea Lightheadedness Dizziness and giddiness Neuroendocrine tumor (HCC) 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 Anemia Anemia, unspecified HTN (hypertension) Unspecified essential hypertension Hematemesis with nausea Melena Blood in stool Hematochezia Blood in stool 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 Acute blood loss anemia Acute posthemorrhagic anemia Gastrointestinal hemorrhage Hemorrhage of gastrointestinal tract, unspecified 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 Lung mass Swelling, mass, or lump in chest Bone lesion Disorder of bone and cartilage, unspecified Iron deficiency anemia due to chronic blood loss Iron deficiency anemia secondary to blood loss (chronic) [facility] Diagnosis Pre-op examination- Primary Preoperative examination, unspecified Primary hypertension Unspecified essential hypertension Stage 2 chronic kidney disease Alcoholism (HCC) Other and unspecified alcohol dependence, unspecified drinking behavior Gastroesophageal reflux disease without esophagitis Esophageal reflux 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 GI bleed- Primary Hemorrhage of gastrointestinal tract, unspecified Acute blood loss anemia Acute posthemorrhagic anemia Acute gastrointestinal hemorrhage Hemorrhage of gastrointestinal tract, unspecified Bloody diarrhea Diarrhea Lightheadedness Dizziness and giddiness Neuroendocrine tumor (HCC) 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 Anemia Anemia, unspecified HTN (hypertension) Unspecified essential hypertension Hematemesis with nausea Melena Blood in stool Hematochezia Blood in stool 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 Acute blood loss anemia Acute posthemorrhagic anemia Gastrointestinal hemorrhage Hemorrhage of gastrointestinal tract, unspecified Iron deficiency anemia, unspecified iron deficiency anemia type- Primary [facility] Diagnosis Pre-op examination- Primary Preoperative examination, unspecified Primary hypertension Unspecified essential hypertension Stage 2 chronic kidney disease Alcoholism (HCC) Other and unspecified alcohol dependence, unspecified drinking behavior Gastroesophageal reflux disease without esophagitis Esophageal reflux 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 GI bleed- Primary Hemorrhage of gastrointestinal tract, unspecified Acute blood loss anemia Acute posthemorrhagic anemia Acute gastrointestinal hemorrhage Hemorrhage of gastrointestinal tract, unspecified Bloody diarrhea Diarrhea Lightheadedness Dizziness and giddiness Neuroendocrine tumor (HCC) 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 Anemia Anemia, unspecified HTN (hypertension) Unspecified essential hypertension Hematemesis with nausea Melena Blood in stool Hematochezia Blood in stool 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 Acute blood loss anemia Acute posthemorrhagic anemia Gastrointestinal hemorrhage Hemorrhage of gastrointestinal tract, unspecified 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 neuroendocrine tumor of other sites [facility] Diagnosis Pre-op examination- Primary Preoperative examination, unspecified Primary hypertension Unspecified essential hypertension Stage 2 chronic kidney disease Alcoholism (HCC) Other and unspecified alcohol dependence, unspecified drinking behavior Gastroesophageal reflux disease without esophagitis Esophageal reflux 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 GI bleed- Primary Hemorrhage of gastrointestinal tract, unspecified Acute blood loss anemia Acute posthemorrhagic anemia Acute gastrointestinal hemorrhage Hemorrhage of gastrointestinal tract, unspecified Bloody diarrhea Diarrhea Lightheadedness Dizziness and giddiness Neuroendocrine tumor (HCC) 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 Anemia Anemia, unspecified HTN (hypertension) Unspecified essential hypertension Hematemesis with nausea Melena Blood in stool Hematochezia Blood in stool 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 Acute blood loss anemia Acute posthemorrhagic anemia Gastrointestinal hemorrhage Hemorrhage of gastrointestinal tract, unspecified 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 neuroendocrine tumor of other sites [facility] Diagnosis Pre-op examination- Primary Preoperative examination, unspecified Primary hypertension Unspecified essential hypertension Stage 2 chronic kidney disease Alcoholism (HCC) Other and unspecified alcohol dependence, unspecified drinking behavior Gastroesophageal reflux disease without esophagitis Esophageal reflux 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 GI bleed- Primary Hemorrhage of gastrointestinal tract, unspecified Acute blood loss anemia Acute posthemorrhagic anemia Acute gastrointestinal hemorrhage Hemorrhage of gastrointestinal tract, unspecified Bloody diarrhea Diarrhea Lightheadedness Dizziness and giddiness Neuroendocrine tumor (HCC) 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 Anemia Anemia, unspecified HTN (hypertension) Unspecified essential hypertension Hematemesis with nausea Melena Blood in stool Hematochezia Blood in stool 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 Acute blood loss anemia Acute posthemorrhagic anemia Gastrointestinal hemorrhage Hemorrhage of gastrointestinal tract, unspecified 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 [facility] Diagnosis Pre-op examination- Primary Preoperative examination, unspecified Primary hypertension Unspecified essential hypertension Stage 2 chronic kidney disease Alcoholism (HCC) Other and unspecified alcohol dependence, unspecified drinking behavior Gastroesophageal reflux disease without esophagitis Esophageal reflux 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 GI bleed- Primary Hemorrhage of gastrointestinal tract, unspecified Acute blood loss anemia Acute posthemorrhagic anemia Acute gastrointestinal hemorrhage Hemorrhage of gastrointestinal tract, unspecified Bloody diarrhea Diarrhea Lightheadedness Dizziness and giddiness Neuroendocrine tumor (HCC) 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 Anemia Anemia, unspecified HTN (hypertension) Unspecified essential hypertension Hematemesis with nausea Melena Blood in stool Hematochezia Blood in stool 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 Acute blood loss anemia Acute posthemorrhagic anemia Gastrointestinal hemorrhage Hemorrhage of gastrointestinal tract, unspecified 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 neuroendocrine tumor of other sites documented [facility] Author Cali Patterson [facility] October 06, 2023 10:09pm Note Date/Time October 06, 2023 10:02pm [facility] [address] [place] [address] Hospitalist H&P Signed Patient: Aisha Julien MR#: [id number] : 1955 Acct:[id number] Age/Sex: 68 / M Adm Date: 4 Loc: Room: [address] [place] [address] Type: ADM IN Attending Dr: Cali Patterson [...] the duodenum,he is currently being seen at [facility] for plans for what he described [...] negative unless noted below or in HPI [facility] Medical History (Updated 10/06/23 @ 22:08 by [...] List clean-up per request of Phys. [facility] History of tonsillectomy Problem List [...] 17:17 Lymph % (Auto) N/A 10/06/23 17:17 [place] % (Auto) N/A 10/06/23 17:17 Eos % (Auto) N/A 10/06/23 17:17 Baso % (Auto) N/A 10/06/23 17:17 Nucleat RBC Rel Count N/A 10/06/23 17:17 Neut # (Auto) N/A 10/06/23 17:17 Lymph # (Auto) N/A 10/06/23 17:17 [place] # (Auto) N/A 10/06/23 17:17 Eos # [...] pH 5.0 (5.0-9.0) 10/06/23 18:34 Ur Specific [place] 1.015 (1.001-1.030) 10/06/23 18:34 Urine Protein Negative [...] Plan: ? Currently being worked up at [facility], stable (6) On total parenteral nutrition [...] 10/06/232158 Signed By: <Electronically signed by Cali Patterson, > 10/06/232208 [facility] Work Phone: History general Narrative - Reported* Type Description Date Medical History HTN Medical History GERD Surgical History knee arthroscopy BILATEAL-3 RAMSES ES EACH [employer] Other History general Narrative - Reported* Type Description Date Medical History HTN Medical History GERD Surgical History knee arthroscopy BILATEAL-3 RAMSES ES EACH Hospitalization History DEHYDRATION [employer] Other Hospital Discharge instructions Additional Instructions DISCHARGE INSTRUCTIONS FOR CARDIAC APPLIED STATISTICIAN PHONE NUMBER OF YOUR PHYSICIAN: [phone] PROCEDURE: Heart Cath The following instructions have [...] cold, numb, blue or white, call the pattern hand immediately. 4. ACTIVITY: You are advised to [...] you to your next doctor's appointment.[facility] Work Phone: Hospital Discharge instructions Additional Instructions You will need to follow-up with [facility] physician Dr. Bety Amin for further evaluation of your duodenal mass. Dr. Tadeo's office will arrange appointment and we will give [facility] a [facility] Work Phone: Progress note Author Gela Eller [facility] July 26, 2023 2:50pm Note Date/Time July 26, 2023 2 :50pm [facility] [address] [place] [address] Hospitalist Progress Note Signed Patient: Aisha Julien MR#: [id number] : 1955 Acct:[id number] Age/Sex: 68 / M Adm Date: 3 Loc: 3T Room: [address] [place] [address] Type: ADM IN Attending Dr: Gela Eller [...] PRN Constipation Finasteride 5 mg 07/25/23 09:00 12/02/23 08:40 Finasteride 5 Mg Tablet PO 07/24/24 [...] Lactated Ringers IV 07/24/24 13:14 75 mls/hr .[id number] NOMI Administration Sodium Chloride 1,000 mls @ [...] external mass effect/compression I did discuss with evs attendant, his office will arrange follow-up with gastroenterology [...] Gela Eller MD> 07/26/23 1450 [facility]: [facility] Diagnostic Procedure Only (Routine) - Authorized Specialty Diagnoses / Procedures Referred By Contac mary Referred To Contact MOLECULAR & FUNCTIONAL IMAGING 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 Bone lesion Procedures NM PET/CT WHOLE BODY SUBSEQUENT PET IMAGING FOR CT ATTENUATION WHOLE BODY Roselyn Leonard MD [address] [place] [address] [place] [address] Molecular & Functional Imaging [address] [place] [address] Referral ID Status Reason Start Date Expiration Date Visits Requested Visits Authorized [id number] Authorized Auto-Generat ed Referral 05/21/2024 08/24/2024 1 1 [facility] for referral (narrative)* Diagnostic Procedure Only (Routine) - New Request Specialty Diagnoses / Procedures Referred By Contac mary Referred To Contact MOLECULAR & FUNCTIONAL IMAGING Diagnoses 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 Procedures NM PET/CT NEUROENDOCRINE WHOLE BODY IMAGING PET IMAGING CT ATTENUATION SKULL BASE [place] Roselyn Leonard MD [address] [place] [address] Molecular & Functional Imaging [address] [place] [address] Referral ID Status Reason Start Date Expiration Date Visits Requested Visits Authorized [id number] New Request Auto-Generat ed Referral 08/07/2025 1 1 [facility] for referral (narrative)* Diagnostic Procedure Only (Routine) - New Request Specialty Diagnoses / Procedures Referred By Contac t Referred To Contact MOLECULAR & FUNCTIONAL IMAGING Diagnoses Malignant carcinoid tumor of ileum (HCC) Procedures NM PET/CT NEUROENDOCRINE WHOLE BODY IMAGING PET IMAGING CT ATTENUATION SKULL BASE [place] Roselyn Leonard MD [address] [place], [place] [address] [address] Molecular & Functional Imaging [address] [place] [address] Referral ID Status Reason Start Date Expiration Date Visits Requested Visits Authorized [id number] New Request Auto-Generat ed Referral 12/02/2024 09/12/2025 1 1 [facility] for visit Narrative* Diagnostic Procedure Only (Routine) - Closed Specialty Diagnoses / Procedures Referred By Contac t Referred To Contact MOLECULAR & FUNCTIONAL IMAGING Diagnoses 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 Procedures NM PET/CT NEUROENDOCRINE WHOLE BODY IMAGING PET IMAGING CT ATTENUATION SKULL BASE [place] Roselyn Leonard MD [address] [place], [place] [address] [address] Molecular & Functional Imaging [address] [place] [address] Referral ID Status Reason Start Date Expiration Date V isits Requested Visits Authorized [id number] Closed Auto-Generate d Referral 07/09/2024 08/24/2024 1 1 [facility] for visit Narrative* [place] Prior Authorization (Routine) - Denied Specialty Diagnoses / Procedures Referred By Contac t Referred To Contact Diagnoses 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) Procedures OCTREOTIDE INJECTION, DEPOT Roselyn Leonard MD [address] [place] [address] Phone: tel: fax: Hematology/Oncology [address] [place] [address] [place] [address] Phone: tel: fax: Referral ID Status Reason Start Date Expiration Date V isits Requested Visits Authorized [id number] Denied Patient Cleared - Admin/Chairm an/Director advise to proceed or did not respond 11/18/2023 09/24/2024 99 0 [facility] for visit Narrative* [place] Prior Authorization (Routine) - Authorized Specialty Diagnoses / Procedures Referred By Contleobardo t Referred To Contact Diagnoses 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) Procedures OCTREOTIDE INJECTION, DEPOT Roselyn Leonard MD [address] [place] [address] [place] [address] Phone: tel: fax: Hematology/Oncology [address] [place] [address] [address] [place] [id number] Phone: tel: fax: Referral ID Status Reason Start Date Expiration Date Visits Requested Visits Authorized [id number] Authorized Patient Cleared - Admin/Chairm an/Director advise to proceed or did not respond 11/18/2023 09/24/2024 99 0 [facility] for visit Narrative* Diagnostic Procedure Only (Routine) - Closed Specialty Diagnoses / Procedures Referred By Erlin t Referred To Contact MOLECULAR & FUNCTIONAL IMAGING Diagnoses Malignant carcinoid tumor of ileum (HCC) Procedures NM PET/CT NEUROENDOCRINE WHOLE BODY IMAGING PET IMAGING CT ATTENUATION SKULL BASE [place] Roselyn Leonard MD [address] [place] [address] [place] [address] Phone: tel: fax: Molecular Imaging [address] [place] [address] Phone: tel: Referral ID Status Reason Start Date Expiration Date V isits Requested Visits Authorized [id number] Closed Auto-Generate d Referral 12/02/2024 09/12/2025 1 1 [facility] for visit Narrative* [place] Prior Authorization (Routine) - Pending Review Specialty Diagnoses / Procedures Referred By Contac t Referred To Contact Diagnoses 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) Procedures OCTREOTIDE INJECTION, Roselyn Glaser MD [address] [place] [address] [place] [address] Phone: tel: fax: Hematology/Oncology [address] [place] [address] [place] [address] Phone: tel: fax: Referral ID Status Reason Start Date Expiration Date Visits Requested Visits Authorized [id number] Pending Review Patient Cleared - Admin/Chair man/Directo r advise to proceed or did not respond 11/18/2023 08/24/2025 99 99 [facility] for visit Narrative* [place] Prior Authorization (Routine) - Authorized Specialty Diagnoses / Procedures Referred By Contac t Referred To Contact Diagnoses 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) Procedures ISABELREOTIDE INJECTION, Roselyn Glaser MD [address] [place] [address] [place] [address] Phone: tel: fax: Hematology/Oncology [address] [place] [address] [place] [address] Phone: tel: fax: Referral ID Status Reason Start Date Expiration Date Visits Requested Visits Authorized [id number] Authorized Patient Cleared - Admin/Chairm an/Director advise to proceed or did not respond 11/18/2023 08/24/2025 99 99 [facility] Summary Purpose Family History No Family History [...] Not Specified Unknown sister Malignant neoplasm Unknown Relationship Condition Age at Onset Recorded Date/T jesus father Heart disease Unknown History of heart surgery Unknown Myocardial infarction Unknown sister Malignant neoplasm of liver Unknown father Unknown family member Unknown mother Unknown sister Malignant neoplasm Unknown Advance Directives No Advanced Directives Records Found Advance Directive Response Recorded Date/ Time Advance Directives No June 04, 2021 10:29am Advance Directive Response Recorded Date/ Time Advance Directives No June 04, 2021 9:29am Documents on File Type Date 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 Advance Directives and Living Will 02/05/2021 2017-03-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 Date Activated Date Inactivated Comments 10/31/2024 2:42 PM Question Answer Comments Full Code Order Discussed With: Patient Date Activated Date Inactivated Comments 10/31/2024 2:42 PM 11/03/2024 8:00 PM Question Answer Comments Full Code Order Discussed With: Patient Date Activated Date Inactivated Comments 10/31/2024 2:42 PM 11/03/2024 8:00 PM Reason for Referral Specialty Diagnoses / Procedures [facility]erred To Contact Diagnoses Chest pain, unspecified type Syncope, unspecified syncope type Procedures Cardiac event monitor Douglas Gutierrez MD [address] [place] [address] Referral ID Status Reason Start Date Expiration Date Visits Re quested Visits Authorized [id number] Closed 10/25/2021 10/25/2022 1 1 Specialty Diagnoses / Procedures Referred By Contac t Referred To Contact Cardiology Diagnoses Chest pain, unspecified type Syncope, unspecified syncope type R07.9 (ICD-10-CM) - Chest pain, unspecified type Procedures Stress test, myoview CHG MYOCARDIAL SPECT MULTIPLE STUDIES 10113 - CHG MYOCARDIAL SPECT MULTIPLE STUDIES Douglas Gutierrez MD [address] [place] [address] [address] Referral ID Status Reason Start Date Expiration Date Visits Re quested Visits Authorized [id number] Closed 10/25/2021 10/25/2022 4 4 Specialty Diagnoses / Procedures [facility] Referred To Contact Vascular Lab Diagnoses Bruit R09.89 (ICD-10-CM) - Bruit Procedures VL DUP CAROTID BILATERAL WY DUPLEX SCAN EXTRACRANIAL,BILAT 81978 - WY DUPLEX SCAN EXTRACRANIAL,BILAT Douglas Gutierrez MD [address] [place] [address] Referral ID Status Reason Start Date Expiration Date V isits Requested Visits Authorized [id number] Pending Review 10/25/2021 10/25/2022 1 1 Specialty Diagnoses / Procedures [facility] Referred To Contact Oncology Diagnoses Primary malignant neuroendocrine tumor of ileum (HCC) Procedures [place] [address] [place] [id number] Roselyn Leonard MD [address] [place] [address] [place] [address] Referral ID Status Reason Start Date Expiration Date Visits Requested Visits Authorized [id number] Ref Not Required PCP Requested Referral 11/17/2023 11/16/2024 1 1 Specialty Diagnoses / Procedures [facility] Ref[facility] To Contact CT IMAGING Diagnoses Malignant carcinoid tumor of ileum (HCC) Procedures CT PANCREAS/PELVIS W IVCON CT ABD & PELVIS W/CONTRAST Roselyn Leonard MD [address] [place] [address] Ct Imaging [place] [address] Referral ID Status Reason Start Date Expiration Date V isits Requested Visits Authorized [id number] Open Auto-Generate d Referral 02/18/2024 02/26/2025 1 1 Specialty Diagnoses / Procedures Referred By Contac t Referred To Contact CT IMAGING 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) Procedures CT CHEST W IVCON DIAGNOSTIC COMPUTED TOMOGRAPHY THORAX W/CONTRAST Roselyn Leonard MD [address] [place] [address] Ct Imaging [id number] Referral ID Status Reason Start Date Expiration Date Visits Requested Visits Authorized [id number] New Request Auto-Generat ed Referral 05/12/2024 04/23/2025 1 1 Specialty Diagnoses / Procedures Referred By Contac t Referred To Contact CT IMAGING 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, unspecified location of malignancy (HCC) Procedures CT PANCREAS/PELVIS W IVCON CT ABD & PELVIS W/CONTRAST Roselyn Leonard MD [address] [place] [address] [place] [address] Ct Imaging [id number] Referral ID Status Reason Start Date Expiration Date Visits Requested Visits Authorized [id number] Pending Review Auto-Generat ed Referral 05/12/2024 04/23/2025 1 1 Referral ID Status Reason Start Date Expiration Date V isits Requested Visits Authorized [id number] Closed Auto-Generate d Referral 08/25/2023 08/24/2024 1 1 Specialty Diagnoses / Procedures Referred By Contac t Referred To Contact CT IMAGING Diagnoses Gastric outlet obstruction Procedures CT PANCREAS/PELVIS W IVCON CT ABD & PELVIS W/CONTRAST Cleveland Alberts MD [address] [place] [id number] Imaging [place] [address] Referral ID Status Reason Start Date Expiration Date V isits Requested Visits Authorized [id number] Closed Auto-Generate d Referral 09/18/2023 08/24/2024 1 1 Referral ID Status Reason Start Date Expiration Date V isits Requested Visits Authorized [id number] Closed Auto-Generate d Referral 04/29/2024 08/24/2024 1 1 Referral ID Status Reason Start Date Expiration Date V isits Requested Visits Authorized [id number] Closed Auto-Generate d Referral 04/29/2024 08/24/2024 1 1 Chief Complaint and Reason for [...] infection at gastrostomy tube site Chief Complaint Admit Date vomiting blood October 28, 2024 11:2 2am Chief Complaint * AISHA JULIEN is being [...] section and content) DATE CREATED AUTHOR 10/17/2021 [facility] DATE CREATED AUTHOR AUTHOR'S ORGANIZ ATION 11/04/2021 [facility] DATE CREATED AUTHOR AUTHOR'S ORGANIZ ATION 12/15/2021 Vania farooq DATE CREATED AUTHOR AUTHOR'S ORGANIZ ATION 07/05/2022 [facility] DATE CREATED AUTHOR AUTHOR'S ORGANIZ ATION 02/03/2023 [facility] DATE CREATED AUTHOR AUTHOR'S ORGANIZ ATION 10/31/2024 [facility] DATE CREATED AUTHOR AUTHOR'S ORGANIZ ATION 11/06/2024 [facility] DATE CREATED AUTHOR AUTHOR'S ORGANIZ ATION 11/24/2024 [facility] EPIC DATE CREATED AUTHOR AUTHOR'S ORGANIZ ATION 01/26/2025 [facility] DATE CREATED AUTHOR AUTHOR'S ORGANIZ ATION 02/13/2025 [facility] Reason for Visit (unrecogniz ed section and content) Specialty Diagnoses / Procedures Referred By Contac t Referred To Contact Diagnoses Chest pain, unspecified type Syncope, unspecified syncope type Procedures Cardiac event monitor Douglas Gutierrez MD [address] [place] [address] Referral ID Status Reason Start Date Expiration Date Visits Re quested Visits Authorized [id number] Closed 10/25/2021 10/25/2022 1 1 Specialty Diagnoses / Procedures Referred By Contac t Referred To Contact Cardiology Diagnoses Chest pain, unspecified type Syncope, unspecified syncope type R07.9 (ICD-10-CM) - Chest pain, unspecified type Procedures Stress test, [facility] CHG MYOCARDIAL SPECT MULTIPLE STUDIES 23201 - CHG MYOCARDIAL SPECT MULTIPLE STUDIES Douglas Gutierrez MD [address] [place] [address] [address] Referral ID Status Reason Start Date Expiration Date Visits Re quested Visits Authorized [id number] Closed 10/25/2021 10/25/2022 4 4 Specialty Diagnoses / Procedures Referred By Contac t Referred To Contact Vascular Lab Diagnoses Bruit R09.89 (ICD-10-CM) - Bruit Procedures VL DUP CAROTID BILATERAL WY DUPLEX SCAN EXTRACRANIAL,BILAT [address] - WY DUPLEX SCAN EXTRACRANIAL,BILAT Douglas Gutierrez MD [address] [place] [address] Referral ID Status Reason Start Date Expiration Date V isits Requested Visits Authorized [id number] Pending Review 10/25/2021 10/25/2022 1 1 Reason Comments Appointment Reason Comments New Patient Evaluation Reason Comments FMLA Paperwork Reason Comments Follow Up Gastric outlet obstr uction Reason Comments Received Outside Medical Records Reason Comments Recent Hospitalization Reason Comments Post Op Follow Up 10/29/23 gastrojejunos jessica w/o vagotomy Reason Comments Care Coordination New Patient Specialty Diagnoses / Procedures [facility] Referred To Contact Diagnoses 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) Procedures OCTREOTIDE INJECTION, DEPOT Roselyn Leonard MD [address] [place] [address] [facility] Mariama Mc [address] [place] [address] Referral ID Status Reason Start Date Expiration Date V isits Requested Visits Authorized [id number] Authorized 11/18/2023 08/24/2024 99 99 Reason Comments Small bowel NET New patient consult Reason Comments Disability Alf Reason Comments Return To Work 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 Reason Comments Lab Orders Reason Comments Anemia 1 month follow up Reason Comments Orders Reason Comments Care Coordination Scan Results Referral ID Status Reason Start Date Expiration Date V isits Requested Visits Authorized [id number] New Request 11/18/2023 08/24/2024 [address] Specialty Diagnoses / Procedures [facility] To Contact CT IMAGING Diagnoses Malignant carcinoid tumor of ileum (HCC) Procedures CT PANCREAS/PELVIS W IVCON CT ABD & PELVIS W/CONTRAST Roselyn Leonard MD [address] [place] [address] Ct Imaging [place] [address] Referral ID Status Reason Start Date Expiration Date V isits Requested Visits Authorized [id number] Closed Auto-Generate d Referral 08/25/2023 08/24/2024 1 1 Specialty Diagnoses / Procedures [facility] Ref[facility] To Contact CT IMAGING Diagnoses Gastric outlet obstruction Procedures CT PANCREAS/PELVIS W IVCON CT ABD & PELVIS W/CONTRAST Cleveland Alberts MD [address] [place] [address] [place] [address] Referral ID Status Reason Start Date Expiration Date V isits Requested Visits Authorized [id number] Closed Auto-Generate d Referral 09/18/2023 08/24/2024 1 1 Specialty Diagnoses / Procedures Referred By Contac t Referred To Contact CT IMAGING 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, unspecified location of malignancy (HCC) Procedures CT PANCREAS/PELVIS W IVCON CT ABD & PELVIS W/CONTRAST Roselyn Leonard MD [address] [place] [address] Ct Imaging [place] [address] Referral ID Status Reason Start Date Expiration Date V isits Requested Visits Authorized [id number] Closed Auto-Generate d Referral 04/29/2024 08/24/2024 1 1 Reason Comments Malignant carcinoid tumor of ileum Reason Comments Med Refill Reason Comments Results Reason Comments Radiology NM Specialty Diagnoses / Procedures [facility] Referred To Contact MOLECULAR & FUNCTIONAL IMAGING 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 Bone lesion Procedures NM PET/CT WHOLE BODY SUBSEQUENT PET IMAGING FOR CT ATTENUATION WHOLE BODY Roselyn Leonard MD [address] [place] [address] Molecular & Functional Imaging [address] [place] [address] Referral ID Status Reason Start Date Expiration Date V isits Requested Visits Authorized [id number] Closed Auto-Generate d Referral 05/21/2024 08/24/2024 1 1 Reason Comments 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 Reason Comments Nm Pet Request Specialty Diagnoses / Procedures [facility] Referred To Contact MOLECULAR & FUNCTIONAL IMAGING Diagnoses 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 Procedures NM PET/CT NEUROENDOCRINE WHOLE BODY IMAGING PET IMAGING CT ATTENUATION SKULL BASE MID-THIGH GALLIUM GA-68 Roselyn Leonard MD [address] [facility] [place] [address] Molecular & Functional Imaging [address] [place] [address] Referral ID Status Reason Start Date Expiration Date V isits Requested Visits Authorized [id number] Closed Auto-Generate d Referral 07/09/2024 08/24/2024 1 1 Reason Comments Hypertension Referral ID Status Reason Start Date Expiration Date V isits Requested Visits Authorized [id number] Authorized 11/18/2023 08/24/2025 99 99 Reason Comments 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 (HC Reason Onset Date Comments Refill Request 09/17/2024 Sandostatin 20mg LAR must be whitebagged Reason Onset Date Comments Erroneous encounter-disregard 09/21/2024 Referral ID Status Reason Start Date Expiration Date V isits Requested Visits Authorized [id number] Denied Patient Cleared - Admin/Chairm an/Director advise to proceed or did not respond 11/18/2023 09/24/2024 99 0 Reason Comments Medication Authorization Sandostatin LAR 20mg Pharmacy prior auth pending Reason Onset Date Comments Refill Request 10/15/2024 Reason Comments Hypertension Hyperlipidemia Reason Comments Hospital Follow Up Reason Comments Medication Follow-up PET scan question Patient Question Reason Comments Malignant carcinoid tumor of ileum Hospital Follow Up Reason Comments Annual Exam Specialty Diagnoses / Procedures Referred By Contac t Referred To Contact MOLECULAR & FUNCTIONAL IMAGING Diagnoses Malignant carcinoid tumor of ileum (HCC) Procedures NM PET/CT NEUROENDOCRINE WHOLE BODY IMAGING PET IMAGING CT ATTENUATION SKULL BASE MID-THIGH Roselyn Leonard MD [address] [place] [address] [place] [address] Phone: tel: fax: Molecular Imaging [address] [place] [address] Phone: tel: Referral ID Status Reason Start Date Expiration Date V isits Requested Visits Authorized [id number] Closed Auto-Generate d Referral 12/02/2024 09/12/2025 1 1 Reason Comments Anemia Malignant carcinoid tumor of ileum Reason Onset Date Comments IV iron 12/13/2024 Reason Comments Malignant carcinoid tumor of ileum Follo w up Care Teams (unrecognized sec tion and content) Team Status: Active Member Role Status Dates Rene Cannon MD Primary Care Provider Active Team Status: Inactive Member Role Status Dates Rene Cannon MD Primary Care Provider Active Kip Gutiérrez DO Emergency Provider Active Gela Eller MD Admit Provider, Attending Provide r Active Jose A Calzada MD Other Provider Active Nohemy Lnider MD Other Provider Active Team Status: Active Member Role Status Dates Rene Cannon MD Primary Care Provider Active Kip Gutiérrez DO Emergency Provider Active Gela Eller MD Admit Provider, Attending Provide r Active Jose A Calzada MD Other Provider Active Nohemy Linder MD Other Provider Active Manager Intel Relationship Specialty Start Date End Date Rene Cannon MD [address] [employer] [place] [address] PCP - General 10/17/21 Manager Intel Relationship Specialty Start Date End Date Rene Cannon MD [address] [place] [address] PCP - General 10/17/21 Manager Intel Relationship Specialty Start Date End Date Rene Cannon MD [address] [facility] [address] PCP - General 10/17/21 Manager Intel Relationship Specialty Start Date End Date Rene Cannon MD [address] [facility] [place] [phone] PCP - General 10/17/21 Manager Intel Relationship Specialty Start Date End Date Rene Cannon MD [address] [place] [phone] PCP - General 10/17/21 Team Status: Inactive Member Role Status Dates Rene Cannon MD Primary Care Provider Active Joselito Madsen DO Attending Provider Active Manager Intel Relationship Specialty Start Date End Date Rene Cannon MD [address] [place] [phone] PCP - General Family Medicine 08/05/23 Manager Intel Relationship Specialty Start Date End Date Rene Cannon MD [address] [place] [address] (Fax) PCP - General Family Medicine 08/05/23 Manager Intel Relationship Specialty Start Date End Date Rene Cannon MD [address] [place] [address] (Fax) PCP - General Family Medicine 08/05/23 Manager Intel Relationship Specialty Start Date End Date Rene Cannon MD [address] [place] [address] (Fax) PCP - General Family Medicine 08/05/23 Manager Intel Relationship Specialty Start Date End Date Rene Cannon MD [address] [place] [address] (Fax) PCP - General Family Medicine 08/05/23 Manager Intel Relationship Specialty Start Date End Date Rene Cannon MD [address] [place] [address] (Fax) PCP - General Family Medicine 08/05/23 Team Status: Inactive Member Role Status Dates Rene Cannon MD Primary Care Provider Active Start: July 24, 2023 End: July 26, 2023 Kip Gutiérrez DO Emergency Provider Active Sta rt: [...] Care Provider Active Start: October 06, 2023 Kip Gutiérrez DO Emergency Provider Active Sta rt: October 06, 2023 Cali Patterson DO Admit Provider, Atte nding Provider Active Start: October 06, 2023 Team Status: Active Member Role Status Dates Rene Cannon MD Primary Care Provider Active Start: October 06, 2023 Kip Gutiérrez DO Emergency Provider Active Sta rt: October 06, 2023 Cali Patterson DO Admit Provider, Atte nding Provider, Other Provider Active Start: October 06, 2023 Manager Intel Relationship Specialty Start Date End Date Rene Cannon MD [address] [place] [address] PCP - [facility] 08/05/23 Team Status: Inactive Member Role Status Dates Rene Cannon MD Primary Care Provider Active Start: October 06, 2023 End: October 10, 2023 Kip Gutiérrez DO Emergency Provider Active Sta rt: October 06, 2023 End: October 10, 2023 Cali Patterson DO Admit Provider Active Start: October 06, 2023 End: October 10, 2023 Eber Suarez MD Other Provider Active Start: October 06, 2023 End: October 10, 2023 Johnny Mendoza DO Attending Provider Active Start: October 06, 2023 End: October 10, 2023 Team Status: Active Member Role Status Dates Rene Cannon MD Primary Care Provider Active Start: October 08, 2023 Kip Gutiérrez DO Emergency Provider Active Sta rt: October 08, 2023 Cali Patterson DO Admit Provider, Othe r Provider Active Start: October 08, 2023 Eber Suarez MD Attending Provider, Other Provider Active Start: October 08, 2023 Manager Intel Relationship Specialty Start Date End Date Rene Cannon MD [address] [facility] [facility] [address] (Fax) PCP - [facility] Medicine 08/05/23 Manager Intel Relationship Specialty Start Date End Date Rene Cannon MD [address] [place] [address] (Fax) PCP - General Family Medicine 08/05/23 Manager Intel Relationship Specialty Start Date End Date Rene Cannon MD [address] [place] [address] (Fax) PCP - General Family Medicine 08/05/23 Manager Intel Relationship Specialty Start Date End Date Rene Cannon MD [address] [place] [address] (Fax) PCP - General Family Medicine 08/05/23 Manager Intel Relationship Specialty Start Date End Date Rene Cannon MD [address] [place] [address] (Fax) PCP - General Family Medicine 08/05/23 Manager Intel Relationship Specialty Start Date End Date Rene Cannon MD [address] [place] [address] (Fax) PCP - General Family Medicine 08/05/23 Manager Intel Relationship Specialty Start Date End Date Rene Cannon MD [address] [place] [address] (Fax) PCP - General Family Medicine 08/05/23 Manager Intel Relationship Specialty Start Date End Date Rene Cannon MD [address] [place] [address] (Fax) PCP - General Family Medicine 08/05/23 Manager Intel Relationship Specialty Start Date End Date Rene Cannon MD [address] [place] [address] (Fax) PCP - General Family Medicine 08/05/23 Manager Intel Relationship Specialty Start Date End Date Rene Cannon MD [address] [place] [address] (Fax) PCP - General Family Medicine 08/05/23 Manager Intel Relationship Specialty Start Date End Date Rene Cannon MD [address] [place] [address] (Fax) PCP - General Family Medicine 08/05/23 Manager Intel Relationship Specialty Start Date End Date Rene Cannon MD [address] [place] [address] (Fax) PCP - General Family Medicine 08/05/23 Manager Intel Relationship Specialty Start Date End Date Rene Cannon MD [address] [place] [address] (Fax) PCP - General Family Medicine 08/05/23 Manager Intel Relationship Specialty Start Date End Date Rene Cannon MD [address] [place] [address] (Fax) PCP - General Family Medicine 08/05/23 Manager Intel Relationship Specialty Start Date End Date Rene Cannon MD [address] [place] [address] (Fax) PCP - General Family Medicine 08/05/23 Manager Intel Relationship Specialty Start Date End Date Rene Cannon MD [address] [place] [address] (Fax) PCP - General Family Medicine 08/05/23 Manager Intel Relationship Specialty Start Date End Date Rene Cannon MD [address] [place] [address] (Fax) PCP - General Family Medicine 08/05/23 Manager Intel Relationship Specialty Start Date End Date Rene Cannon MD [address] [place] [address] (Fax) PCP - General Family Medicine 08/05/23 Manager Intel Relationship Specialty Start Date End Date Rene Cannon MD [address] [place] [address] (Fax) PCP - General Family Medicine 08/05/23 Manager Intel Relationship Specialty Start Date End Date Rene Cannon MD [address] [place] [address] (Fax) PCP - General Family Medicine 08/05/23 Manager Intel Relationship Specialty Start Date End Date Rene Cannon MD [address] [place] [address] (Fax) PCP - General Family Medicine 08/05/23 Manager Intel Relationship Specialty Start Date End Date Rene Cannon MD [address] [place] [address] (Fax) PCP - General Family Medicine 08/05/23 Manager Intel Relationship Specialty Start Date End Date Rene Cannon MD [address] [place] [address] PCP - General Family Medicine 01/24/23 Rene Cannon MD [address] [facility] [place] [address] (Fax) PCP - [facility] 03/25/24 Manager Intel Relationship Specialty Start Date End Date Rene Cannon MD [address] [place] [address] PCP - General Family Medicine 01/24/23 Manager Intel Relationship Specialty Start Date End Date Rene Cannon MD [address] [place] [facility] [place] [address] (Fax) PCP - General Family Medicine 08/05/23 Manager Intel Relationship Specialty Start Date End Date Rene Cannon MD [address] [place] [facility] [place] [address] (Fax) PCP - General Family Medicine 08/05/23 Manager Intel Relationship Specialty Start Date End Date Rene Cannon MD [address] [facility] [place] [address] (Fax) PCP - General Family Medicine 08/05/23 Manager Intel Relationship Specialty Start Date End Date Rene Cannon MD (Fax) PCP - General Family Medicine 01/24/23 Manager Intel Relationship Specialty Start Date End Date Rene Cannon MD [address] [place] [address] (Fax) PCP - General Family Medicine 08/05/23 Manager Intel Relationship Specialty Start Date End Date Rene Cannon MD [address] [place] [address] PCP - General Family Medicine 01/24/23 Manager Intel Relationship Specialty Start Date End Date Rene Cannon MD [address] [place] [address] PCP - General Family Medicine 01/24/23 Manager Intel Relationship Specialty Start Date End Date Rene Cannon MD [address] [place] [address] PCP - General Family Medicine 01/24/23 Manager Intel Relationship Specialty Start Date End Date Rene Cannon MD [address] [place] [address] PCP - General Family Medicine 01/24/23 Rene Cannon MD [address] [facility] [place] [address] (Fax) PCP - [facility] 03/25/24 Manager Intel Relationship Specialty Start Date End Date Rene Cannon MD (Fax) PCP - General Family Medicine 01/24/23 Manager Intel Relationship Specialty Start Date End Date Rene Cannon MD [address] [place] [address] (Fax) PCP - General Family Medicine 08/05/23 Manager Intel Relationship Specialty Start Date End Date Rene Cannon MD [address] [place] [place] [address] (Fax) PCP - General Family Medicine 08/05/23 Manager Intel Relationship Specialty Start Date End Date Rene Cannon MD (Fax) PCP - General Family Medicine 01/24/23 Manager Intel Relationship Specialty Start Date End Date Rene Cannon MD [address] [facility] [place] [address] (Fax) PCP - General Family Medicine 08/05/23 Manager Intel Relationship Specialty Start Date End Date Rene Cannon MD (Fax) PCP - General Family Medicine 01/24/23 Manager Intel Relationship Specialty Start Date End Date Rene Cannon MD (Fax) PCP - General Family Medicine 01/24/23 Manager Intel Relationship Specialty Start Date End Date Rene Cannon MD [address] [place] [facility] [place] [place] [phone] (Fax) PCP - General Family Medicine 08/05/23 Team Status: Inactive Member Role Status Dates Rene Cannon MD Primary Care Provider Active Start: October 28, 2024 End: October 28, 2024 Marily Romero DO Emergency Provider Active Sta rt: October 28, 2024 End: October 28, 2024 Darrius Brown MD RES Active Start: October 28, 2024 End: October 28, 2024 Manager Intel Relationship Specialty Start Date End Date Rene Cannon MD [address] [place] [address] (Fax) PCP - General Family Medicine 08/05/23 Manager Intel Relationship Specialty Start Date End Date Rene Cannon MD [address] [place] [address] (Fax) PCP - General Family Medicine 08/05/23 Manager Intel Relationship Specialty Start Date End Date Rene Cannon MD [address] [place] [address] (Fax) PCP - General Family Medicine 08/05/23 Manager Intel Relationship Specialty Start Date End Date Rene Cannon MD [address] [place] [address] (Fax) PCP - General Family Medicine 08/05/23 Roselyn Leonard MD [address] [place] [address] [place] [address] Hematology/Oncology 11/17/24 Manager Intel Relationship Specialty Start Date End Date Rene Cannon MD (Fax) PCP - General Family Medicine 01/24/23 Manager Intel Relationship Specialty Start Date End Date Rene Cannon MD (Fax) PCP - General Family Medicine 01/24/23 Roselyn Leonard MD [address] [facility] [place] [address] Referring Physician Hematology and Oncology 11/23/24 Jean Madsen MD [address] [facility] [address] [place] [address] Referring Physician Cardiology 11/23/24 Manager Intel Relationship Specialty Start Date End Date Rene Cannon MD (Fax) PCP - General Family Medicine 01/24/23 Roselyn Leonard MD [address] [facility] [place] [address] Referring Physician Hematology and Oncology 11/23/24 Jean Madsen MD [address] [facility] [address], [facility] [address] [place] [address] Referring Physician Cardiology 11/23/24 Manager Intel Relationship Specialty Start Date End Date Rene Cannon MD [address] [place] [address] (Fax) PCP - General Family Medicine 08/05/23 Roselyn Leonard MD [address] [facility] [place] [address] Hematology/Oncology 11/17/24 Manager Intel Relationship Specialty Start Date End Date Rene Cannon MD [address] [place] [address] (Fax) PCP - General Family Medicine 08/05/23 Roselyn Leonard MD [address] [facility] [place] [address] Hematology/Oncology 11/17/24 Manager Intel Relationship Specialty Start Date End Date Rene Cannon MD [address] [place] [address] (Fax) PCP - General Family Medicine 08/05/23 Roselyn Leonard MD [address] [facility] [place] [address] Hematology/Oncology 11/17/24 Manager Intel Relationship Specialty Start Date End Date Rene Cannon MD [address] [place] [address] (Fax) PCP - General Family Medicine 08/05/23 Roselyn Leonard MD [address] [facility] [place] [address] Hematology/Oncology 11/17/24 Manager Intel Relationship Specialty Start Date End Date Rene Cannon MD [address] [place] [address] (Fax) PCP - General Family Medicine 08/05/23 Roselyn Leonard MD [address] [facility] [place] [address] Hematology/Oncology 11/17/24 Manager Intel Relationship Specialty Start Date End Date Rene Cannon MD [address] [place] [address] (Fax) PCP - General Family Medicine 08/05/23 Roselyn Leonard MD [address] [facility] [place] [address] Hematology/Oncology 11/17/24 Manager Intel Relationship Specialty Start Date End Date Rene Cannon MD [address] [facility] [place] [address] (Fax) PCP - General Family Medicine 08/05/23 Roselyn Leonard MD [address] [facility] [place] [address] Hematology/Oncology 11/17/24 Manager Intel Relationship Specialty Start Date End Date Rene Cannon MD [address] [facility] [place] [address] (Fax) PCP - General Family Medicine 08/05/23 Roselyn Leonard MD [address] [place] [address] Hematology/Oncology 11/17/24 Manager Intel Relationship Specialty Start Date End Date Rene Cannon MD (Fax) PCP - General Family Medicine 01/24/23 Roselyn Leonard MD [address] [facility] [place] [address] Referring Physician Hematology and Oncology 11/23/24 Jean Madsen MD [address] [facility] [address], [address] [place] [address] Referring Physician Cardiology 11/23/24 Manager Intel Relationship Specialty Start Date End Date Rene Cannon MD [address] [facility] [place] [address] (Fax) PCP - General Family Medicine 08/05/23 Roselyn Leonard MD [address] [place] [address] Hematology/Oncology 11/17/24 Itzel Singh, DEVAN.CATHEAD OPERATOR [address] [place] [address] Nurse Practitioner Hematology/Oncology 01/22/25 Manager Intel Relationship Specialty Start Date End Date Rene Cannon MD [address] [facility] [facility] [place] [address] PCP - General Family Medicine 08/05/23 Roselyn Leonard MD [address] [place] [address] Hematology/Oncology 11/17/24 Itzel Singh, SOCIETY REPORTER.CATHEAD OPERATOR [address] [place] [address] Nurse Practitioner Hematology/Oncology 01/22/25 Source Comments (unrecognize d section and content) In the event this informatio n is protected by the [facility] Confidentiality of Alcohol and Drug Abuse Patient Records regulations: The Federal rules restrict any use of the information to criminally investigate or prosecute any alcohol or drug abuse patient.[facility] the event this information is protected by the Federal Confidentiality of Alcohol and Drug Abuse Patient Records regulations: The Federal rules restrict any use of the information to criminally investigate or prosecute any alcohol or drug abuse patient.[facility] the event this information is protected by the Federal Confidentiality of Alcohol and Drug Abuse Patient Records regulations: The Federal rules restrict any use of the information to criminally investigate or prosecute any alcohol or drug abuse patient.[facility] the event this information is protected by the Federal Confidentiality of Alcohol and Drug Abuse Patient Records regulations: The Federal rules restrict any use of the information to criminally investigate or prosecute any alcohol or drug abuse patient.[facility] the event this information is protected by the Federal Confidentiality of Alcohol and Drug Abuse Patient Records regulations: The Federal rules restrict any use of the information to criminally investigate or prosecute any alcohol or drug abuse patient.[facility] the event this information is protected by the Federal Confidentiality of Alcohol and Drug Abuse Patient Records regulations: The Federal rules restrict any use of the information to criminally investigate or prosecute any alcohol or drug abuse patient.[facility] the event this information is protected by the Federal Confidentiality of Alcohol and Drug Abuse Patient Records regulations: The Federal rules restrict any use of the information to criminally investigate or prosecute any alcohol or drug abuse patient.[facility] the event this information is protected by the Federal Confidentiality of Alcohol and Drug Abuse Patient Records regulations: The Federal rules restrict any use of the information to criminally investigate or prosecute any alcohol or drug abuse patient.[facility] the event this information is protected by the Federal Confidentiality of Alcohol and Drug Abuse Patient Records regulations: The Federal rules restrict any use of the information to criminally investigate or prosecute any alcohol or drug abuse patient.[facility] the event this information is protected by the Federal Confidentiality of Alcohol and Drug Abuse Patient Records regulations: The Federal rules restrict any use of the information to criminally investigate or prosecute any alcohol or drug abuse patient.[facility] the event this information is protected by the Federal Confidentiality of Alcohol and Drug Abuse Patient Records regulations: The Federal rules restrict any use of the information to criminally investigate or prosecute any alcohol or drug abuse patient.[facility] the event this information is protected by the Federal Confidentiality of Alcohol and Drug Abuse Patient Records regulations: The Federal rules restrict any use of the information to criminally investigate or prosecute any alcohol or drug abuse patient.[facility] the event this information is protected by the Federal Confidentiality of Alcohol and Drug Abuse Patient Records regulations: The Federal rules restrict any use of the information to criminally investigate or prosecute any alcohol or drug abuse patient.[facility] the event this information is protected by the Federal Confidentiality of Alcohol and Drug Abuse Patient Records regulations: The Federal rules restrict any use of the information to criminally investigate or prosecute any alcohol or drug abuse patient.[facility] the event this information is protected by the Federal Confidentiality of Alcohol and Drug Abuse Patient Records regulations: The Federal rules restrict any use of the information to criminally investigate or prosecute any alcohol or drug abuse patient.[facility] the event this information is protected by the Federal Confidentiality of Alcohol and Drug Abuse Patient Records regulations: The Federal rules restrict any use of the information to criminally investigate or prosecute any alcohol or drug abuse patient.[facility] HospitalIn the event this information is protected by the Federal Confidentiality of Alcohol and Drug Abuse Patient Records regulations: The Federal rules restrict any use of the information to criminally investigate or prosecute any alcohol or drug abuse patient.[facility]In the event this information is protected by the Federal Confidentiality of Alcohol and Drug Abuse Patient Records regulations: The Federal rules restrict any use of the information to criminally investigate or prosecute any alcohol or drug abuse patient.[facility]In the event this information is protected by the Federal Confidentiality of Alcohol and Drug Abuse Patient Records regulations: The Federal rules restrict any use of the information to criminally investigate or prosecute any alcohol or drug abuse patient.[facility]In the event this information is protected by the Federal Confidentiality of Alcohol and Drug Abuse Patient Records regulations: The Federal rules restrict any use of the information to criminally investigate or prosecute any alcohol or drug abuse patient.[facility]In the event this information is protected by the Federal Confidentiality of Alcohol and Drug Abuse Patient Records regulations: The Federal rules restrict any use of the information to criminally investigate or prosecute any alcohol or drug abuse patient.[facility]In the event this information is protected by the Federal Confidentiality of Alcohol and Drug Abuse Patient Records regulations: The Federal rules restrict any use of the information to criminally investigate or prosecute any alcohol or drug abuse patient.[facility]In the event this information is protected by the Federal Confidentiality of Alcohol and Drug Abuse Patient Records regulations: The Federal rules restrict any use of the information to criminally investigate or prosecute any alcohol or drug abuse patient.[facility] HospitalIn the event this information is protected by the Federal Confidentiality of Alcohol and Drug Abuse Patient Records regulations: The Federal rules restrict any use of the information to criminally investigate or prosecute any alcohol or drug abuse patient.[facility]In the event this information is protected by the Federal Confidentiality of Alcohol and Drug Abuse Patient Records regulations: The Federal rules restrict any use of the information to criminally investigate or prosecute any alcohol or drug abuse patient.[facility]In the event this information is protected by the Federal Confidentiality of Alcohol and Drug Abuse Patient Records regulations: The Federal rules restrict any use of the information to criminally investigate or prosecute any alcohol or drug abuse patient.[facility]In the event this information is protected by the Federal Confidentiality of Alcohol and Drug Abuse Patient Records regulations: The Federal rules restrict any use of the information to criminally investigate or prosecute any alcohol or drug abuse patient.[facility]In the event this information is protected by the Federal Confidentiality of Alcohol and Drug Abuse Patient Records regulations: The Federal rules restrict any use of the information to criminally investigate or prosecute any alcohol or drug abuse patient.[facility] HospitalIn the event this information is protected by the Federal Confidentiality of Alcohol and Drug Abuse Patient Records regulations: The Federal rules restrict any use of the information to criminally investigate or prosecute any alcohol or drug abuse patient.[facility]In the event this information is protected by the Federal Confidentiality of Alcohol and Drug Abuse Patient Records regulations: The Federal rules restrict any use of the information to criminally investigate or prosecute any alcohol or drug abuse patient.[facility]In the event this information is protected by the Federal Confidentiality of Alcohol and Drug Abuse Patient Records regulations: The Federal rules restrict any use of the information to criminally investigate or prosecute any alcohol or drug abuse patient.[facility]In the event this information is protected by the Federal Confidentiality of Alcohol and Drug Abuse Patient Records regulations: The Federal rules restrict any use of the information to criminally investigate or prosecute any alcohol or drug abuse patient.[facility]In the event this information is protected by the Federal Confidentiality of Alcohol and Drug Abuse Patient Records regulations: The Federal rules restrict any use of the information to criminally investigate or prosecute any alcohol or drug abuse patient.[facility] HospitalIn the event this information is protected by the Federal Confidentiality of Alcohol and Drug Abuse Patient Records regulations: The Federal rules restrict any use of the information to criminally investigate or prosecute any alcohol or drug abuse patient.[facility] HospitalIn the event this information is protected by the Federal Confidentiality of Alcohol and Drug Abuse Patient Records regulations: The Federal rules restrict any use of the information to criminally investigate or prosecute any alcohol or drug abuse patient.[facility] HospitalIn the event this information is protected by the Federal Confidentiality of Alcohol and Drug Abuse Patient Records regulations: The Federal rules restrict any use of the information to criminally investigate or prosecute any alcohol or drug abuse patient.[facility] HospitalIn the event this information is protected by the Federal Confidentiality of Alcohol and Drug Abuse Patient Records regulations: The Federal rules restrict any use of the information to criminally investigate or prosecute any alcohol or drug abuse patient.[facility] HospitalIn the event this information is protected by the Federal Confidentiality of Alcohol and Drug Abuse Patient Records regulations: The Federal rules restrict any use of the information to criminally investigate or prosecute any alcohol or drug abuse patient.[facility]In the event this information is protected by the Federal Confidentiality of Alcohol and Drug Abuse Patient Records regulations: The Federal rules restrict any use of the information to criminally investigate or prosecute any alcohol or drug abuse patient.[facility]In the event this information is protected by the Federal Confidentiality of Alcohol and Drug Abuse Patient Records regulations: The Federal rules restrict any use of the information to criminally investigate or prosecute any alcohol or drug abuse patient.[facility] HospitalIn the event this information is protected by the Federal Confidentiality of Alcohol and Drug Abuse Patient Records regulations: The Federal rules restrict any use of the information to criminally investigate or prosecute any alcohol or drug abuse patient.[facility] HospitalIn the event this information is protected by the Federal Confidentiality of Alcohol and Drug Abuse Patient Records regulations: The Federal rules restrict any use of the information to criminally investigate or prosecute any alcohol or drug abuse patient.[facility] HospitalIn the event this information is protected by the Federal Confidentiality of Alcohol and Drug Abuse Patient Records regulations: The Federal rules restrict any use of the information to criminally investigate or prosecute any alcohol or drug abuse patient.[facility] HospitalIn the event this information is protected by the Federal Confidentiality of Alcohol and Drug Abuse Patient Records regulations: The Federal rules restrict any use of the information to criminally investigate or prosecute any alcohol or drug abuse patient.[facility]In the event this information is protected by the Federal Confidentiality of Alcohol and Drug Abuse Patient Records regulations: The Federal rules restrict any use of the information to criminally investigate or prosecute any alcohol or drug abuse patient.[facility] HospitalIn the event this information is protected by the Federal Confidentiality of Alcohol and Drug Abuse Patient Records regulations: The Federal rules restrict any use of the information to criminally investigate or prosecute any alcohol or drug abuse patient.[facility]In the event this information is protected by the Federal Confidentiality of Alcohol and Drug Abuse Patient Records regulations: The Federal rules restrict any use of the information to criminally investigate or prosecute any alcohol or drug abuse patient.[facility]In the event this information is protected by the Federal Confidentiality of Alcohol and Drug Abuse Patient Records regulations: The Federal rules restrict any use of the information to criminally investigate or prosecute any alcohol or drug abuse patient.[facility] HospitalIn the event this information is protected by the Federal Confidentiality of Alcohol and Drug Abuse Patient Records regulations: The Federal rules restrict any use of the information to criminally investigate or prosecute any alcohol or drug abuse patient.[facility]In the event this information is protected by the Federal Confidentiality of Alcohol and Drug Abuse Patient Records regulations: The Federal rules restrict any use of the information to criminally investigate or prosecute any alcohol or drug abuse patient.[facility]In the event this information is protected by the Federal Confidentiality of Alcohol and Drug Abuse Patient Records regulations: The Federal rules restrict any use of the information to criminally investigate or prosecute any alcohol or drug abuse patient.[facility]In the event this information is protected by the Federal Confidentiality of Alcohol and Drug Abuse Patient Records regulations: The Federal rules restrict any use of the information to criminally investigate or prosecute any alcohol or drug abuse patient.[facility]In the event this information is protected by the Federal Confidentiality of Alcohol and Drug Abuse Patient Records regulations: The Federal rules restrict any use of the information to criminally investigate or prosecute any alcohol or drug abuse patient.[facility]In the event this information is protected by the Federal Confidentiality of Alcohol and Drug Abuse Patient Records regulations: The Federal rules restrict any use of the information to criminally investigate or prosecute any alcohol or drug abuse patient.[facility]In the event this information is protected by the Federal Confidentiality of Alcohol and Drug Abuse Patient Records regulations: The Federal rules restrict any use of the information to criminally investigate or prosecute any alcohol or drug abuse patient.[facility]In the event this information is protected by the Federal Confidentiality of Alcohol and Drug Abuse Patient Records regulations: The Federal rules restrict any use of the information to criminally investigate or prosecute any alcohol or drug abuse patient.[facility]In the event this information is protected by the Federal Confidentiality of Alcohol and Drug Abuse Patient Records regulations: The Federal rules restrict any use of the information to criminally investigate or prosecute any alcohol or drug abuse patient.[facility]In the event this information is protected by the Federal Confidentiality of Alcohol and Drug Abuse Patient Records regulations: The Federal rules restrict any use of the information to criminally investigate or prosecute any alcohol or drug abuse patient.[facility]In the event this information is protected by the Federal Confidentiality of Alcohol and Drug Abuse Patient Records regulations: The Federal rules restrict any use of the information to criminally investigate or prosecute any alcohol or drug abuse patient.[facility]In the event this information is protected by the Federal Confidentiality of Alcohol and Drug Abuse Patient Records regulations: The Federal rules restrict any use of the information to criminally investigate or prosecute any alcohol or drug abuse patient.[facility]In the event this information is protected by the Federal Confidentiality of Alcohol and Drug Abuse Patient Records regulations: The Federal rules restrict any use of the information to criminally investigate or prosecute any alcohol or drug abuse patient.[facility]In the event this information is protected by the Federal Confidentiality of Alcohol and Drug Abuse Patient Records regulations: The Federal rules restrict any use of the information to criminally investigate or prosecute any alcohol or drug abuse patient.[facility]In the event this information is protected by the Federal Confidentiality of Alcohol and Drug Abuse Patient Records regulations: The Federal rules restrict any use of the information to criminally investigate or prosecute any alcohol or drug abuse patient.[facility]In the event this information is protected by the Federal Confidentiality of Alcohol and Drug Abuse Patient Records regulations: The Federal rules restrict any use of the information to criminally investigate or prosecute any alcohol or drug abuse patient.[facility] HospitalIn the event this information is protected by the Federal Confidentiality of Alcohol and Drug Abuse Patient Records regulations: The Federal rules restrict any use of the information to criminally investigate or prosecute any alcohol or drug abuse patient.[facility] HospitalIn the event this information is protected by the Federal Confidentiality of Alcohol and Drug Abuse Patient Records regulations: The Federal rules restrict any use of the information to criminally investigate or prosecute any alcohol or drug abuse patient.[facility] HospitalIn the event this information is protected by the Federal Confidentiality of Alcohol and Drug Abuse Patient Records regulations: The Federal rules restrict any use of the information to criminally investigate or prosecute any alcohol or drug abuse patient.[facility] HospitalIn the event this information is protected by the Federal Confidentiality of Alcohol and Drug Abuse Patient Records regulations: The Federal rules restrict any use of the information to criminally investigate or prosecute any alcohol or drug abuse patient.[facility] HospitalIn the event this information is protected by the Federal Confidentiality of Alcohol and Drug Abuse Patient Records regulations: The Federal rules restrict any use of the information to criminally investigate or prosecute any alcohol or drug abuse patient.[facility] HospitalIn the event this information is protected by the Federal Confidentiality of Alcohol and Drug Abuse Patient Records regulations: The Federal rules restrict any use of the information to criminally investigate or prosecute any alcohol or drug abuse patient.[facility] Inactive Administered Medications - up to 3 most recent administrations Administered Medications (un recognized section and content) Medication Order MAR Action Action Date Dose Rate Site octreotide LAR 20 mg depot (monthly) injection (SandoSTATIN LAR) 20 mg, INTRAMUSCULAR, ONCE, 1 dose, On Fri12/03/23 at 1600, REFRIGERATE - PROTECT FROM LIGHT Given 12/03/2023 4:08 PM EDT 20 mg Buttocks, Left Goals (unrecognized section and content) Goals may be documented in a n alternate section FOR RECORDS PERTAINING TO PATIENTS WHO ARE [...] BE BASED ON THE PRIMARY CLINICAL RECORDS. [facility] [employer] [facility]. provides no warranty or guarantee of the accuracy or completeness of information in this document.
[2025-02-22] MEDS: PANTOPRAZOLE SODIUM 40 MG VIAL IV (22:02)
[2025-02-22] MEDS: 0.9 % SODIUM CHLORIDE 1,000 ML 1000 ML IV (22:02)
[2025-02-22] MEDS: FAMOTIDINE/PF 20 MG/2 ML VIAL 40 MG IV (22:02)
[2025-02-22 22:06] LABS: Hematocrit 30.6 % (42.0-54.0); Hemoglobin 9.9 g/dL (14.0-18.0); Immature Granulocytes Abs Auto 0.04 10^3/uL (0.00-0.03); Immature Granulocytes Pct Auto 0.5 % (0.0-0.5); Lymphocytes Absolute Auto 0.5 10^3/uL (1.2-3.8); Mean Corpuscular HGB Conc 32.4 g/dL (29.9-35.2); Mean Corpuscular Hemoglobin 30.0 pg (25.9-34.0); Mean Corpuscular Volume 92.7 fL (80.0-94.0); Platelet Count 309 10^3/uL (150-450); Red Blood Count 3.30 10^6/uL (4.70-6.10); White Blood Count 8.8 10^3/uL (4.0-11.0)
--- NOTE | 2025-02-22 22:07 | ED.GIBLEED1 ---
HPI - GI Bleed General Chief complaint: GI Bleed Stated complaint: VOMITING BLOOD Time Seen by Provider: 02/22/25 21:33 Source: patient Mode of arrival: ambulance Limitations: no limitations History of Present Illness HPI Narrative: This 69-year-old male with a history of colon cancer and alcohol dependence who states he drinks alcohol on a daily basis is brought to the emergency department by EMS from home. He started vomiting blood this morning around 6 AM. He has had multiple episodes of bloody emesis and also blood from his rectum apparently. 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 In October he had a GI bleed and was taken to [facility] where he had surgery. He states that something was wrapped around his small bowel. He is not currently receive any chemotherapy but does get a shot on a monthly basis. He sees a [facility] oncologist in [place]. He is not on any blood thinners. His last drink was around 7 PM last night. He states he felt fine yesterday and went to bed and when he woke up this morning he started becoming nauseated and has had multiple episodes of hematemesis since that time. His states the blood was dark in color with clots. He also complains of severe abdominal pain. His belly is mildly distended. In the emergency department he was not actively vomiting blood but was sticking his fingers down his throat to induce vomiting. He has had endoscopy before but he states that they could not find the source of bleeding when he had the endoscopy. He has never heard the word of varices in the past. Related Data Home Medications ?Medication ?Instructions ?Recorded ?Confirmed diltiazem HCl 180 mg 240 mg PO DAILY 07/18/23 02/23/25 capsule,extended release 24 hr finasteride 5 mg tablet 5 mg PO DAILY 07/18/23 02/23/25 losartan 100 mg tablet 100 mg PO DAILY 07/18/23 02/23/25 metoprolol succinate 100 mg 100 mg PO DAILY 07/18/23 02/23/25 tablet,extended release 24 hr ondansetron HCl 4 mg tablet 4 mg PO DAILY PRN nausea and 07/18/23 07/18/23 vomiting potassium gluconate 595 mg (99 mg) 595 mg PO DAILY 07/18/23 07/18/23 tablet tamsulosin 0.4 mg capsule 0.4 mg PO DAILY 07/18/23 02/23/25 Previous Rx's ?Medication ?Instructions ?Recorded hyoscyamine sulfate 0.125 mg 0.125 mg PO Q6H PRN abdominal pain 07/18/23 sublingual tablet (Levsin/SL) #20 tabs ondansetron 4 mg disintegrating 4 mg PO Q6H PRN nausea and 07/18/23 tablet vomiting #20 tabs Allergies Allergy/AdvReac Type Severity Reaction Status Date / Time No Known Drug Allergies Allergy Verified 02/16/23 16:52 Review of Systems ROS Status of ROS 10 or more systems reviewed and unremarkable except as noted in history and below PFSH PFS Social History Smoking status: Never smoker Little interest or pleasure in doing things: not at all Feeling down, depressed, or hopeless: not at all Exam Narrative Exam Narrative: Vital signs and Nursing Notes reviewed: Patient is tachycardic, hypotensive and tachypneic, he is not hypoxic with pulse ox of 98% on room air General: Awake, alert, oriented, anxious adult male, patient with dry heaves but no active vomiting, at 1 point he put his fingers down his throat to induce vomiting HEENT: Normocephalic atraumatic, mucous membranes are moist and pink, eyes are clear, normal conjunctiva, vision is grossly intact, posterior pharynx is normal in appearance. Neck: Supple, no meningeal signs, no anterior or posterior cervical lymphadenopathy Chest: Lungs are clear to auscultation with good air entry, there is no wheezing rhonchi or rales appreciated no accessory muscle use, patient is speaking in complete sentences-no chest wall tenderness to palpation CVS: Regular rate and rhythm S1-S2, no murmurs rubs or gallops, pulses are brisk and equal bilaterally ABD: Softly distended, healed incision on mid abdominal wall, no blood in rectum on exam Extremities: Moving all extremities, no lower extremity tenderness or swelling noted, negative Homans' sign, pulses are brisk and equal bilaterally Skin: Face is flushed but remainer of skin is pale and dry Neuro: No focal deficits Constitutional Vital Signs, click to edit/add: Last Vital Signs Temp 98.2 F 02/23/25 05:50 Pulse 83 02/23/25 05:50 Resp 16 02/23/25 05:50 BP 98/55 02/23/25 05:50 Pulse Ox 100 02/23/25 04:00 O2 Del Method Room Air 02/23/25 01:01 Course Vital Signs Vital signs: Vital Signs Pulse Rate 103 H 02/22/25 21:33 Respiratory Rate 22 H 02/22/25 21:33 Blood Pressure 79/66 L 02/22/25 21:33 Pulse Oximetry 98 02/22/25 21:33 Oxygen Delivery Method Room Air 02/22/25 21:33 Temperature 98.2 F 02/23/25 05:50 Pulse Rate 83 02/23/25 05:50 Respiratory Rate 16 02/23/25 05:50 Blood Pressure 98/55 02/23/25 05:50 Pulse Oximetry 100 02/23/25 04:00 Oxygen Delivery Method Room Air 02/23/25 01:01 MDM - GI Bleed MDM Narrative Medical decision making narrative: This 69-year-old male was brought to emergency department by EMS from home for evaluation of upper GI bleeding. The patient started vomiting blood around 6 AM. He presents to the emergency department after 7 PM at night. According to the paramedics his blood pressure was low and he had episodes of becoming unresponsive en route to the hospital. Upon arrival the patient is awake and alert. He provides history that he is a daily drinker. He last drank yesterday around 7 PM. He also states that he has a slow-growing malignancy around his small bowel that he thinks also impacted his pancreas. Last year he was seen at [facility] and transferred to [facility] where he underwent abdominal surgery. He states they moved a bunch of things around in his stomach however he does not have any additional understanding of his surgery. He was okay until yesterday around 6 AM. Upon arrival he was awake, tachycardic and hypotensive. An IV was established and he was given IV fluids, IV Pepcid, IV Zofran and IV Protonix. EKG done upon arrival was a sinus tachycardia at 128 bpm he was also given a banana bag due to the history of alcohol dependence. He did not have any additional episodes of vomiting while in the emergency department. His initial white count was 8.8 with a hemoglobin of 9.9 and a hematocrit of 30. Platelet count was normal. BUN is elevated at 37 and creatinine is elevated at 1.93. Troponin is normal. Lipase is normal. After CT scan his nausea returned and he had dry heaves. He was given additional Zofran. Repeat lactic acid is improved at 2.3 but his hemoglobin did drop from 9.9-7.3 with a hematocrit of 22.6. 2 units of blood was then ordered. He consents to the blood transfusion. CXR is negative for acute findings. He had additional episodes of hematemesis in the ED and Octreotide was ordered. Case was discussed with [facility] ICU attending, Dr Perales and he is accepted for transfer. He suggested addition of IV Rocephin. CT scan abdomen pelvis with IV contrast shows a normal-sized heart with no pericardial effusion. Fatty infiltration of the liver. Mild to moderate stranding throughout the abdominal cavity. Mild distended gallbladder. No acute process seen involving the spleen pancreas adrenal glands or kidneys. Mildly enlarged prostate gland. No acute process seen in the bladder. Intramuscular lipoma within the right gluteus carole muscle. Multilevel degenerative disc disease throughout the lumbar spine with endplate and facet hypertrophic changes. Diffuse posterior bulging disc throughout the mid and lower lumbar spine contributing to moderate central canal stenosis. Multiple enlarged lymph nodes in the central mesentery consistent with underlying neoplastic process in the peritoneal cavity. No free air. No abscess. No pneumatosis. Enlarged retroperitoneal lymph nodes adjacent to the abdominal aorta. The aggregate of lymph nodes has an overall dimension of 7 cm transverse by 4.7 cm AP. Enlarged retroperitoneal para-aortic nodes. Right hemicolectomy and absent appendix. Patient stabilized on the Octreotide drip and while receiving blood without any additional epidoses of vomiting or hematemesis. Pt did have a bowel movement while in the ER that had blood mixed with stool but not cristian blood. 06:15- Bed available at [facility] Lab Data Attestation: I reviewed the patient's lab results. Labs: Lab Results 02/22/25 02/23/25 Range/Units 21:50 00:48 WBC 8.8 6.9 (4.0-11.0) 10^3/uL RBC 3.30 L 2.49 L (4.70-6.10) 10^6/uL Hgb 9.9 L 7.3 L (14.0-18.0) g/dL Hct 30.6 L 22.6 L* (42.0-54.0) % MCV 92.7 90.8 (80.0-94.0) fL MCH 30.0 29.3 (25.9-34.0) pg MCHC 32.4 32.3 (29.9-35.2) g/dL RDW 15.1 H 15.3 H (11.0-15.0) % Plt Count 309 197 (150-450) 10^3/uL MPV 10.7 10.5 (9.5-13.5) fL Neut % (Auto) 83.3 H 83.0 H (43.0-75.0) % Lymph % (Auto) 6.2 L 3.5 L (20.5-60.0) % [place] % (Auto) 9.7 12.5 H (1.7-12.0) % Eos % (Auto) 0.0 L 0.0 L (0.9-7.0) % Baso % (Auto) 0.3 0.1 L (0.2-2.0) % Neut # (Auto) 7.3 H 5.8 (1.4-6.5) 10^3/uL Lymph # (Auto) 0.5 L 0.2 L (1.2-3.8) 10^3/uL [place] # (Auto) 0.9 H 0.9 H (0.3-0.8) 10^3/uL Eos # (Auto) 0.0 0.0 (0.0-0.7) 10^3/uL Baso # (Auto) 0.0 0.0 (0.0-0.1) 10^3/uL Abs Immat Gran (auto) 0.04 H 0.06 H (0.00-0.03) 10^3/uL Imm/Tot Granulo (auto) 0.5 0.9 H (0.0-0.5) % PT 12.0 H (9.0-11.6) sec INR 1.15 Sodium 144 (136-145) mmol/L Potassium 4.3 (3.5-5.1) mmol/L Chloride 111 H (98-107) mmol/L Carbon Dioxide 14.8 L (21.0-32.0) mmol/L Anion Gap 22.5 BUN 37.0 H (7.0-18.0) mg/dL Creatinine 1.93 H (0.70-1.30) mg/dL Est GFR ( Amer) 42 L (>=60 mL/min/1.73m^2) Est GFR (Non-Af Amer) 35 L (>=60 mL/min/1.73m^2) BUN/Creatinine Ratio 19.2 Glucose 165 H (74-106) mg/dL Lactate 7.0 H* 2.3 H* (0.4-2.0) mmol/L Calcium 8.5 (8.5-10.1) mg/dL Total Bilirubin 0.8 (0.2-1.0) mg/dL AST 63 H (15-37) U/L ALT 43 (16-63) U/L Alkaline Phosphatase 161 H (46-116) U/L Troponin I High Sens 11.7 (4.0-76.1) pg/mL Total Protein 6.0 L (6.4-8.2) g/dL Albumin 2.8 L (3.4-5.0) g/dL Globulin 3.2 g/dL Albumin/Globulin Ratio 0.9 Lipase 73.0 (16.0-77.0) U/L Blood Type A Positive Antibody Screen Negative Crossmatch See Detail ECG Data Attestation: I personally reviewed and interpreted this ECG as follows: (Sinus tachycardia at 128 bpm, right axis deviation, mildly peaked T waves, no acute ST segment elevation or T wave inversion) Critical Care Time Critical Care Time Critical Care Time: Yes Total Critical Care Time: 45 Attestation: This patient presents for evaluation of acute GI bleeding with unstable vital signs. Due to the high probability of sudden and clinically significant deterioration in his condition he required the highest level of my preparedness to intervene. I provided critical care time including documentation time, medication orders and management reevaluation, vital sign assessment, ordering and reviewing of lab tests, ordering review of x-ray studies, reviewing prior studies, discussion with consulting physicians and transfer physicians. Aggregate critical care time was 45 minutes including only time during which I was engaged in work direct related to his care and did not include time spent treating other patient simultaneously. Discharge Plan Discharge Chief Complaint: GI Bleed Clinical Impression: GI (gastrointestinal bleed), History of alcohol dependence, Carcinoid tumor, Anemia due to acute blood loss Patient Disposition: [facility] Time of Disposition Decision: 06:21 Condition: Serious Mode of Transportation: EMS
[2025-02-22 22:20] LABS: Alanine Aminotransferase 43 U/L (16-63); Albumin Globulin Ratio 0.9; Albumin Level 2.8 g/dL (3.4-5.0); Alkaline Phosphatase 161 U/L (46-116); Anion Gap 22.5; Aspartate Amino Transferase 63 U/L (15-37); Blood Urea Nitrogen 37.0 mg/dL (7.0-18.0); Calcium 8.5 mg/dL (8.5-10.1); Carbon Dioxide 14.8 mmol/L (21.0-32.0); Chloride 111 mmol/L (98-107); Estimated GFR (African America 42 (>=60 mL/min/1.73m^2); Estimated GFR (Non-African Ame 35 (>=60 mL/min/1.73m^2); Globulin 3.2 g/dL; Glucose 165 mg/dL (74-106); Potassium 4.3 mmol/L (3.5-5.1); Sodium 144 mmol/L (136-145); Total Protein 6.0 g/dL (6.4-8.2)
[2025-02-22 22:23] LABS: INR 1.15; Prothrombin Time 12.0 sec (9.0-11.6)
[2025-02-22 22:27] LABS: Lactate/Lactic Acid 7.0 mmol/L (0.4-2.0)
[2025-02-22] MEDS: MULTIVIT INFUSN,ADULT 4,VIT K 10 ML, FOLIC ACID 1 MG, THIAMINE HCL 100 MG in DEXTROSE 5... 250 ML IV (22:49)
[2025-02-22 23:05] LABS: Lipase 73.0 U/L (16.0-77.0)
--- NOTE | 2025-02-22 23:45 | PC.NURSE ---
Shira Gayle RN in to do IV start with US. She was successful with a #18 G to the AC.
[2025-02-23] VITALS (74 sets, daily range): BP systolic 57–127; BP diastolic 34–85; PULSE 75–134; TEMP 36.6–37.1; O2SAT 91–100
--- NOTE | 2025-02-23 00:07 | PC.NURSE ---
Pt states that he drinks 7-8 beers a day. Yesterday morning, he drank two hard booze drinks . Further states he does not typically drink the hard stuff , just beer .
[2025-02-23] MEDS: 0.9 % SODIUM CHLORIDE 1,000 ML 1000 ML IV (00:33)
--- NOTE | 2025-02-23 00:51 | PC.NURSE ---
Repeat CBC and lactic acid sent.
[2025-02-23 00:55] LABS: Hemoglobin 7.3 g/dL (14.0-18.0); Immature Granulocytes Abs Auto 0.06 10^3/uL (0.00-0.03); Immature Granulocytes Pct Auto 0.9 % (0.0-0.5); Lymphocytes Absolute Auto 0.2 10^3/uL (1.2-3.8); Mean Corpuscular HGB Conc 32.3 g/dL (29.9-35.2); Mean Corpuscular Hemoglobin 29.3 pg (25.9-34.0); Mean Corpuscular Volume 90.8 fL (80.0-94.0); Platelet Count 197 10^3/uL (150-450); Red Blood Count 2.49 10^6/uL (4.70-6.10); White Blood Count 6.9 10^3/uL (4.0-11.0)
--- NOTE | 2025-02-23 01:10 | PC.NURSE ---
HR is currently in the 80's and is NSR with occasional unifocal PVCs and BP with a SBP of 100 whereas SBP upon arrival was in the upper 70's. SPO2 continues to be above 95% RA. Pt's skin is W/P/D. Respirations are regular and non-labored. Lactic acid and H/H values called to us from lab--Dr Marker informed. Lactic acid is down from earlier draw, and H/H values are also down SP 1.5 L. aware.
[2025-02-23 01:16] LABS: Hematocrit 22.6 % (42.0-54.0); Lactate/Lactic Acid 2.3 mmol/L (0.4-2.0)
[2025-02-23] MEDS: PROCHLORPERAZINE 10 MG/2 ML VIAL 5 MG IV (01:56)
[2025-02-23] MEDS: OCTREOTIDE ACETATE 100 MCG/ML VIAL IV (01:59)
--- NOTE | 2025-02-23 02:20 | PC.NURSE ---
Pt suddenly became tachycardic in the 130's and SBP dropped to 70's--he was vomiting bright red blood. Continues to be A & O x 4. at the bedside. MD in room. 100 mcg sandostatin IVP given, then a 500 mcg gtt in 250 of NS started at 25.1 ml/hr. on phone with [facility].
--- NOTE | 2025-02-23 04:47 | PC.NURSE ---
Report to Shira Gayle RN. Care relinquished.
== END 2025-02-23 10:30 | disposition short-term general hospital (02) ==
PROVIDERS: Emergency Provider Emergency Medicine; PCP Family Medicine
DX: K92.2 Gastrointestinal hemorrhage, unspecified (principal); D62 Acute posthemorrhagic anemia; F10.20 Alcohol dependence, uncomplicated; C18.9 Malignant neoplasm of colon, unspecified; R10.9 Unspecified abdominal pain; D17.9 Benign lipomatous neoplasm, unspecified; M51.369 Other intervertebral disc degeneration, lumbar region without mention of lumbar back pain or lower extremity pain; M48.061 Spinal stenosis, lumbar region without neurogenic claudication; Z90.49 Acquired absence of other specified parts of digestive tract
CPT/HCPCS: 36415; 36430; 71045; 74177; 80053; 83605; 83690; 84484; 85025; 85610; 86850; 86900; 86901; 86923; 93005; 96361; 96365; 96366; 96368; 96375; 96376; 99285; J0696; J0780; J2354; J2405; J3411; J3490; P9016; Q9966

== ENCOUNTER 2025-08-20 06:37 | Emergency (ER) | payer MEDICARE, OTHER, SELFPAY ==
--- OUTSIDE RECORDS SUMMARY | 2025-08-10 13:45 | XMS_ITS | Encounter Summary ---
Author Organization [facility] Address [address] [place], [place] [id number] Care Team Providers Care Salesperson Furs Name Role Phone Rene Pandey MD Primary Care Provider Ra Silveira MD Unavailable [phone] Itzel Singh APRN.PRINTING MACHINE OPERATOR [employer] Unavailable [phone] Source Comments In the event this information is protected by the Federal Confidentiality of Alcohol and Drug AbusePatient Records regulations: The Federal rules restrict any use of the information to criminally investigate or prosecute any alcohol or drug abuse patient.[facility] Reason for Visit * [place] Prior Authorization (Routine) - AuthorizedSpecialtyDiagnoses / ProceduresReferred By ContactReferred To Contact Diagnoses 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) Procedures OCTREOTIDE INJECTION, DEPOT Ra Silveira MD [facility] [place] [address] Phone: tel: fax: Hematology/Oncology [facility] [place] [address] Phone: tel: fax: Referral IDStaDeven DateExpiration DateVisits RequestedVisits [id number] Patient Cleared - Admin/Assembler Truck Trailer/Director advise to proceed or did not respond [id number] Encounter Details DateTypeDepartmentCare Team (Latest Contact Info)Bgxweewhavf11/17/2025 1:45 PM [facility] Hematology/Oncology [address] [place] [address] [place] [address] 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) Social History Tobacco UseTypesPacks/DayYears UsedDateSmoking Tobacco: NeverSmokeless Tobacco: NeverAlcohol UseStandard Drinks/WeekCommentsYes0 (1 standard drink = 0.6 oz pure alcohol)a few beers per dayAH UtilitiesAnswerDate RecordedIn the past 12 months has the [place], gas, oil, or water [facility] threatened to shut off services in your home?No11/02/2024Overall Financial Resource Strain (CARDIA)AnswerDate RecordedHow hard is it for you to pay for the very basics like food, housing, medical care, and heating?Not hard at all10/31/2023HQ-2AnswerDate RecordedPHQ-2 ueqpg724Hunger Vital SignAnswerDate RecordedWithin the past 12 months, you worried that your food would run out before you got the money to buymore. Never true11/02/2024Within the past 12 months, the food you bought just didn't last and you didn't have money to get more.Never true11/02/2024PRAPARE - TransportationAnswerDate RecordedIn the past 12 months, has lack of transportation kept you from medical appointments or from getting medications?No 11/02/2024In the past 12 months, has lack of transportation kept you from meetings, work, or from getting things needed for daily living?No11/02/2024 Housing Stability Vital SignAnswerDate RecordedIn the last 12 months, was there a time when you were not able to pay the mortgage or rent on time?No10/31/2023In the last 12 months, how many places have you lived?103/08/2024In the last 12 months, was there a time when you did not have a steady place to sleep or slept in ashelter (including now)?10/31/2023Housing Stability Vital SignAnswerDate RecordedIn the last 12 months, was there a time when you were not able to pay the mortgage or rent on time?11/02/2024In the past 12 months, how many times have you moved where you were living?t any time in the past 12 months, were you homeless or living in a assisted (including now)?No11/02/2024 Area Deprivation IndexAnswerDate RecordedNational Score (1-100), lower number is lower fnqy910908/07/2023State Score (1-10), lower number is lower bvcd88910/08/2022 Data from: https://www.neighborhoodatlas.[facility].edu/. Last address used for [address] [facility] Sex and Gender InformationValueDate RecordedSex Assigned at KhqmeFoep15/24/2024 7:12 PM EDTLegal OdmAouq84/05/2023 3:01 PM ESTGender HftnazspYqdb96/24/2024 7:12 PM EDTSexual OrientationStraight 11/16/2023 7:12 PM EDTdocumented as of this encounter Last Filed Vital Signs Vital SignReadingTime TakenCommentsBlood Pesdrhel068/8108/10/2025 1:51 PM EST Cwjbe632508/10/2025 1:51 PM OOWXsthactteqr04.3 ??C (97.3 ??F)08/10/2025 1:51 PM ESTRespiratory Smhg143510/11/2024 1:51 PM ESTOxygen Accnmcuwhc84%08/10/2025 1:51 PM ESTInhaled Oxygen Concentration--Weight--Height--Body Mass Index--documented in this encounter Functional Status * Are you deaf or do you have serious difficulty hearing?AnswerDate of GjyqvryrmeDjoftsAj97/06/2025 5:54 PM Priti Langley RN * Are you blind or do you have serious difficulty seeing, even when wearing glasses?AnswerDate of OinmjbvxvxHwxcphTx37/01/2025 5:54 PM Priti Langley RN * Do you have serious difficulty walking or climbing stairs?AnswerDate of PlrtujxeocWbppykVq10/06/2025 5:54 PM Priti Langley RN * Do you have difficulty dressing or bathing?AnswerDate of AssessmentAuthorNo 02/27/2025 5:54 PM Priti Langley RN * Because of a physical, mental, or emotional condition, do you have difficulty doing errands alone such as visiting a doctor's office or shopping?AnswerDate of CrpkqvtnrcOqhjteAt22/06/2025 5:54 PM Priti Langley RN documented as of this encounter Mental Status * Because of a physical, mental, or emotional condition, do you have serious difficulty concentrating, remembering, or making decisions?AnswerEntry Date LvidfnDc36/06/2025 5:54 PM Priti Langley RN documented in this encounter Plan of Treatment DateTypeDepartmentCare Team (Latest Contact Info)Xtweyiqekfu67/15/2026 8:15 AM ESTAppointment Molecular Imaging [address] [place] [address] NM DOTATATE-PET/CT NEUROENDOCRINE WHOLE BODY QQTQLOA3609/08/2025 9:15 AM EST Appointment Molecular Imaging [address] [place] [id number] [place] DOTATATE-PET/CT NEUROENDOCRINE WHOLE BODY AHHJQTK4409/08/2025 1:15 PM ESTOffice Visit [facility] [address] [place] [address] LAB AND SANDOSTATIN (pet morning of at )09/08/2025 1:40 PM ESTVisit (SP) Office Hematology/Oncology [address] [place] [address] Ra Silveira MD [address] [place] [address] [place] [address] LAB AND SANDOSTATIN (pet morning of at )documented as of this encounter Visit Diagnoses Diagnosis 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 neuroendocrine tumor of other sites documented in this encounter Administered Medications Medication OrderMAR ActionAction DateDoseRateSite octreotide LAR 20 mg depot (monthly) injection (SandoSTATIN LAR) 20 mg, INTRAMUSCULAR, ONCE, 1 dose, On Fri08/10/25 at 1400, REFRIGERATE - PROTECT FROM LIGHT Indications: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 [place] [address] Nurse PractitionerHematology/Oncology01/22/25documented as of this encounter
[2025-08-20] VITALS (55 sets, daily range): BP systolic 70–122; BP diastolic 43–74; PULSE 78–108; TEMP 36.1; O2SAT 83–96; BMI 24.8
--- NOTE | 2025-08-20 06:50 | CT_ITS ---
The [address] [address] Patient Name: AISHA CLINTON MRN: [id number] date: 1955 Sex: M Assigned Patient Location: ED.MAIN Current Patient Location: ED.MAIN Accession/Order Number: [id number] Exam Date: 08/20/2025 07:55 Report Date: 08/20/2025 09:18 At the request of: ZARA YEAGER Procedure: CT abdomen pelvis w con CT Abdomen and Pelvis withcontrast TECHNIQUE: Axial imaging with 2-D reconstruction. The CT exam was performed using one or more the following dose reduction techniques: Automated exposure control, adjustment of the MA and/or Kv according to patient size, or use of the iterative reconstruction technique. COMPARISON: 02/23/2025 History: Nausea vomiting and diarrhea. Loose stools with blood clots LIMITATIONS: None LOWER THORAX Unremarkable LIVER: Hepatic steatosis. GALLBLADDER: No gallbladder abnormality identified. BILE DUCTS: No dilatation SPLEEN: Unremarkable PANCREAS: Unremarkable ADRENAL GLANDS: Unremarkable KIDNEYS:Unremarkable AORTA: No abdominal aortic aneurysm identified. RETROPERITONEUM: No significant retroperitoneal abnormalities identified. MESENTERY:Multiple enlarged lymph nodes of the central mesentery redemonstrated. Likely represents underlying neoplastic process within the peritoneal cavity. Findings similar compared to prior examination 02/23/2025. STOMACH:There is a heterogeneous fluid identified in the stomach. Component of hematoma may be present. There is no findings of active GI bleeding. Gastric varicosities identified. SMALL BOWEL: The small bowel loops are nondistended. APPENDIX: The appendix is normal. COLON: There is a similar wall thickening of the ascending colon. This can be seen with chronic inflammatory changes or passive congestion. URINARY BLADDER: Urinary bladder wall thickening. Underdistention. Mild adjacent stranding. REPRODUCTIVE SYSTEM: Prostatomegaly PNEUMOPERITONEUM: None PERITONEAL FLUID:None BONY STRUCTURES: Multilevel degenerative changes throughout the lumbar spine. ABDOMINAL WALL: Unremarkable intramuscular lipoma on the right gluteus carole muscle. CT/CT abdomen pelvis w con IMPRESSION: Development of the urinary bladder wall thickening concerning for cystitis. Heterogeneous fluid identified in the stomach. blood components may be present. No contrast extravasation seen to suggest active bleeding.. No bowel obstruction. There is redemonstration of multiple enlarged lymph nodes in the central mesenteric fat likely representing neoplastic process within the peritoneal cavity. This is unchanged. No retroperitoneal lymphadenopathy redemonstrated. Diffuse stranding throughout the peritoneal cavity. Impression dictated by: Serge Victoria M.D. 08/20/2025 9:18 AM Dictation Location: [place] [address] Electronically authenticated by: [id number] Y Date: 08/20/2025 09:18
--- NOTE | 2025-08-20 06:53 | ED.GIBLEED1 ---
HPI - GI Bleed General Chief complaint: GI Bleed Stated complaint: Nausea/Vomiting/Diarrhea Time Seen by Provider: 08/20/25 06:41 Source: patient Mode of arrival: ambulance History of Present Illness HPI Narrative: cc -GI bleed Sometime between 5 AM and 6 AM, the patient woke with nausea and vomiting and diarrhea. He said that he has blood coming out both . Patient has history of colon cancer with spread to the pancreas. He also has history of alcohol dependence. In October he had similar presentation and was evaluated at [facility]. Endoscopy did not reveal evidence of bleeding at that time, according to the patient. He came back to our emergency department in February and was evaluated in the ED after developing nausea and bloody vomit with bloody diarrhea. He was started on an octreotide drip and sent to [place] on that visit where he underwent endoscopy and he told me they burned bleed in his esophagus. He has prior history of small bowel obstruction and had surgery to repair this some years ago. Prior to symptoms this morning, he told me that he had been doing well. No abdominal pain, nausea, vomiting or diarrhea yesterday or in the days prior. Last drink of alcohol was last night Related Data Home Medications ?Medication ?Instructions ?Recorded ?Confirmed diltiazem HCl 180 mg 240 mg PO DAILY 07/18/23 02/23/25 capsule,extended release 24 hr finasteride 5 mg tablet 5 mg PO DAILY 07/18/23 02/23/25 losartan 100 mg tablet 100 mg PO DAILY 07/18/23 02/23/25 metoprolol succinate 100 mg 100 mg PO DAILY 07/18/23 02/23/25 tablet,extended release 24 hr ondansetron HCl 4 mg tablet 4 mg PO DAILY PRN nausea and 07/18/23 07/18/23 vomiting potassium gluconate 595 mg (99 mg) 595 mg PO DAILY 07/18/23 07/18/23 tablet tamsulosin 0.4 mg capsule 0.4 mg PO DAILY 07/18/23 02/23/25 Previous Rx's ?Medication ?Instructions ?Recorded hyoscyamine sulfate 0.125 mg 0.125 mg PO Q6H PRN abdominal pain 07/18/23 sublingual tablet (Levsin/SL) #20 tabs ondansetron 4 mg disintegrating 4 mg PO Q6H PRN nausea and 07/18/23 tablet vomiting #20 tabs Allergies Allergy/AdvReac Type Severity Reaction Status Date / Time No Known Drug Allergies Allergy Verified 02/16/23 16:52 PFSH PFSH Social History Smoking status: Never smoker Little interest or pleasure in doing things: not at all Feeling down, depressed, or hopeless: not at all Exam Narrative Exam Narrative: Nurses notes and vital signs reviewed and patient is not hypoxic. Borderline hypotension afebrile General: Ill-appearing but no apparent distress. Skin: Warm, dry, no pallor noted. Head: Normocephalic, atraumatic. Neck: Supple, non-tender. Eye: Pupils are equal, round and EOMI. Ears, Nose, Mouth, and Throat: Oral mucosa is moist. There is dried blood around both nostrils and the patient's upper lip. Cardiovascular: Regular Rate and Rhythm without murmur, gallop or rub. Respiratory: No accessory muscle use or respiratory distress. Lungs are clear to auscultation, no wheezing, rales or rhonchi Musculoskeletal: normal ROM, no calf or popliteal tenderness, no lower extremity edema/swelling GI: Abdomen is soft, non-distended. Normal bowel sounds. Vertical midline scar without dehiscence. Mild diffuse tenderness to palpation. No rebound, guarding, or rigidity noted. Neurological: A&O x4. No cranial nerve dysfunction observed. No truncal ataxia. Moves all extremities. Sensation intact. Psychiatric: Cooperative and interactive. Normal mood and affect. Constitutional Vital Signs, click to edit/add: Last Vital Signs Temp 97.0 F L 08/20/25 06:44 Pulse 85 08/20/25 06:44 Resp 20 08/20/25 06:44 BP 89/51 08/20/25 06:44 Pulse Ox 96 08/20/25 06:44 O2 Del Method Room Air 08/20/25 06:44 Course Vital Signs Vital signs: Vital Signs Temperature 97.0 F L 08/20/25 06:44 Pulse Rate 85 08/20/25 06:44 Respiratory Rate 20 08/20/25 06:44 Blood Pressure 89/51 08/20/25 06:44 Pulse Oximetry 96 08/20/25 06:44 Oxygen Delivery Method Room Air 08/20/25 06:44 Temperature 97.0 F L 08/20/25 06:44 Pulse Rate 85 08/20/25 06:44 Respiratory Rate 20 08/20/25 06:44 Blood Pressure 89/51 08/20/25 06:44 Pulse Oximetry 96 08/20/25 06:44 Oxygen Delivery Method Room Air 08/20/25 06:44 MDM - GI Bleed MDM Narrative Medical decision making narrative: Patient was placed on flatwork tier and EKG obtained. Blood drawn and sent for evaluation. The patient was ordered to receive IV Protonix, IV Zofran and IV octreotide. CT scan of the abdomen pelvis with IV contrast was also ordered. EKG reviewed by me and no ST elevation or deep depression is noted. The patient is signed out to Dr. Valdez with all results and final disposition pending. Medical Records Attestation: I reviewed the patient's medical records. Medical records narrative: see HPI ECG Data Attestation: I personally reviewed and interpreted this ECG as follows: Interpretation: EKG interpretation:Emergency Department physician interpretation. Normal sinus rhythm at 76bpm. Normal axis, normal intervals and no ST segment elevation or depression. Discharge Plan Discharge Patient Disposition: Still a Patient
[2025-08-20 07:05] LABS: Hematocrit 36.8 % (42.0-54.0); Hemoglobin 11.9 g/dL (14.0-18.0); Mean Corpuscular HGB Conc 32.3 g/dL (29.9-35.2); Mean Corpuscular Hemoglobin 31.8 pg (25.9-34.0); Mean Corpuscular Volume 98.4 fL (80.0-94.0); Platelet Count 294 10^3/uL (150-450); Red Blood Count 3.74 10^6/uL (4.70-6.10); White Blood Count 7.4 10^3/uL (4.0-11.0)
--- OUTSIDE RECORDS SUMMARY | 2025-08-20 07:21 | XMS_ITS | Clinical Summary ---
Author Organization [facility] Address [address] [place] [id number] Care Team Providers Care Radiologic Technologist Chief Name Role Phone Rene Pandey MD Primary Care Provider Ra Silveira MD Unavailable [phone] Itzel Singh APRN.MANUAL TESTER Unavailable [phone] Allergies No known active allergies Medications MedicationSigDispense QuantityRefillsLast FilledStart DateEnd DateStatus ferrous sulfate (IRON) 325 mg (65 mg iron) tablet Take 30 mg by mouth once daily.Active pantoprazole DR (PROTONIX) 40 mg tablet Take 1 tablet by mouth once daily. 30 tablet 5Active losartan (COZAAR) 100 mg tablet Take 100 mg by mouth once daily.Active MULTI-VITAMIN ORAL Take by mouth.Active Active Problems ProblemNoted DateDiagnosed DateMalnutrition of mild lduohf9202/27/2025hronic alcohol use02/26/2025Gastric varix02/26/2025GIB (gastrointestinal bleeding) 02/25/2025UGIB (upper gastrointestinal bleed)02/23/2025KI (acute kidney injury) 02/23/2025IDA (iron deficiency anemia)12/13/2024Gastrointestinal hemorrhage 11/03/2024Neuroendocrine tumor of ileum10/31/2024 Assessment & Plan (11/03/2024 3:19 PM EDT): Pt in care with oncologist Dr. Ra Silveira. Most recent PET scan was Jul 2024. - Follow up with OP Oncology provider Assessment & Plan (10/31/2024 3:07 PM EDT): Pt in care with oncologist Dr. Ra Silveira. Most recent PET scan was Jul 2024. Since provider does not round at [place] will place consult with [facility] heme/onc for eval and recommendations. Acute on chronic blood loss yjbkuv1810/31/2024 Assessment & Plan (11/03/2024 3:19 PM EDT): - HGB 7.3 - Stable - Follow up with PCP and HEM/ONC Assessment & Plan (10/31/2024 3:07 PM EDT): Pt with a Hb of 5.7. otherwise vitals are stable. Will transfuse 2 units of RBCs and monitor labs. Metastatic neuroendocrine tumor to abdominal wall10/31/2024 Assessment & Plan (11/03/2024 3:19 PM EDT): - Follow up with OP oncology provider History of bypass jbwloseysaalcredy36/03/2024 Overview (02/25/2025): October 29, 2023 GERD (gastroesophageal reflux disease)10/13/2023 Assessment & Plan (10/13/2023 11:53 AM EST): Assessment: Managed and stable with current medication. Denies difficulty swallowing or any bleeding. Gastric outlet jfgwzqdjwib87/08/2024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/ Assessment & Plan (10/13/2023 11:54 AM EST): Assessment: small bowel neuroendocrine tumor with metastases to high ileocolic nodes causing occlusion of the portal vein and abutment of the SMA. The patient also presented initially with a gastric outlet obstruction and was admitted for nutritional support and workup. Primary malignant neuroendocrine tumor of ytwgkfmh15/27/2023onvulsions 08/16/2023Vasovagal fcdjtqw1708/16/2023eneralized buumssdt01/22/2023HTN (hypertension)08/08/2023 Assessment & Plan (11/03/2024 3:19 PM EDT): - Continue home medications Assessment & Plan (10/31/2024 3:07 PM EDT): Pt on losartan. Did not take med today and BP is wnl. Will hold today. Assessment & Plan (10/13/2023 11:51 AM EST): Assessment: stable w/out med Last 5 Encounter BP Readings: Date: BP: 10/13/2023 103/57 10/02/2023 127/72 08/28/2023 113/55 08/28/2023 93/53 08/14/2023 102/74 On total parenteral nutrition (TPN)08/08/20237635Bumprysbfu50 Assessment & Plan (10/13/2023 11:52 AM EST): Assessment: daily drinker, advised to taper or stop prior to surgery HLD (hyperlipidemia)enign prostatic elxsvmytyfo37/06/2023 Overview (02/25/2025): Comment on above: Problem List clean-up per request of Phys. EHR Cmte Esophageal gwskdnhyrovd87/06/2023Heart qutrzt3101/28/2023rimary osteoarthritis of both knees01/28/20235848Kymihrpyp54/06/2023KD stage 3a, GFR 45-59 ml/min01/28/2023 Resolved Problems ProblemNoted DateDiagnosed DateResolved DateAcute blood loss dctwup1411/01/2024 11/03/2024GI bleed5011/03/2024 Assessment & Plan (11/03/2024 3:19 PM EDT): - Resolved - EGD/COLONOSCOPY revealed hemorrhoids; follow up with [facility] as an OP Assessment & Plan (10/31/2024 3:07 PM EDT): Mr. Alexander presents today with 1 wk of bloody diarrhea and 2 episodes of bloody emesis. [facility] to [facility] ED 4 days ago and hb was 8.2. Also experiencing sxs of fatigue, dyspnea, and occ dizzyness. 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 Plan: -ordered RBC transfusion of 2units. -GI on consult, appreciate recs. -IVF -NPO after midnight-Hgb on arrival and j2ynyeh x 24 hours. -Monitor stool color and volume. -Transfuse again if Hgb <7 and patient symptomatic. -IV Protonix BID. -GI consulted; awaiting recommendations. Hematemesis with ftfznp42Melena Snixzblthikc48Post-op painEncounter for attention to vumoblldybj34DehydrationNear aiuqfpv06Malnutrition of moderate udlxza00 Pre-op vyhvvxmrpt26Therapeutic drug ruoasgnwzi66/15/2023 02/25/2025Feeding lusaiuyfeqhk42Failure to thrive in adult Mild mitral ddgrkylkzqvhf92Mild tricuspid gxpruwhokpaaz27Stage 2 chronic kidney Assessment & Plan (10/13/2023 11:52 AM EST): [...] 09/03/2023 0.84 0.73 - 1.22 mg/dL Final Benign essential fduhbgcdqmrf14 Encounters DateTypeDepartmentCare EnxpVawjmgjapmr70/17/2025 1:45 PM ESTInfusion Center Hematology/Oncology [address] [place] [address] [place] [address] 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) 07/20/2025 2:00 PM ESTInfusion Center Hematology/Oncology [address] [place] [address] [place] [address] 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) 07/20/2025 1:30 PM ESTVisit (SP) Office Hematology/Oncology [address] [place] [address] [place] [address] Katia Adair, MATERIALS SPECIALIST.MANUAL TESTER 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); Carcinoid syndrome (HCC); Malignant carcinoid tumor of ileum (HCC); Functional uftmhomj96/26/3391Bthplr29/05/2025 2:00 PM ESTInfusion Center Hematology/Oncology [address] [place] [address] [place] [address] 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) 06/23/2025Orders Only Hematology/Oncology [address] [place] [address] [place] [address] Katia Adair, MATERIALS SPECIALIST.MANUAL TESTER 06/23/2025Orders Only Hematology/Oncology [facility] [place] [address] Itzel Singh, MATERIALS SPECIALIST.MANUAL TESTER 06/22/2025Orders Only Hematology/Oncology [address] [place] [address] [place] [address] Itzel Singh MATERIALS SPECIALIST.MANUAL TESTER 06/22/2025Orders Only Hematology/Oncology [address] [place] [address] [place] [address] Joy Tan, CHARLESC 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) 06/13/2025Telephone Cancer Appts [address] [place] [address] Ra Silveira MD Nm Pet Request; Appointment (Shot schedule)06/08/2025 1:45 PM EDTInfusion Center Hematology/Oncology [address] [place] [address] [place] [address] 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) 06/08/2025 1:20 PM EDTVisit (SP) Office Hematology/Oncology [address] [place] [address] [place] [address] Ra Silveira MD 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); Carcinoid syndrome (HCC); Gastroparesis; Long-term (current) use of injectable non-insulin antidiabetic drugs06/08/2025 Telephone Cancer Appts [address] [place] [address] Ra Silveira MD Zmbzryw4106/07/2025 7:03 AM EDT - 06/07/2025 11:59 PM EDTHospital Encounter Molecular Imaging [address] [place] [address] 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) [C7B.8] Discharge Disposition: Home06/07/2025 7:03 AM EDT - 06/07/2025 11:59 PM EDT Hospital Encounter Molecular Imaging [address] [place] [address] Discharge Disposition: Home06/07/2025Travelfrom Last 3 Months Immunizations ImmunizationAdministration DatesNext Duetetanus diphtheria pertussis (Tdap) vaccine, age 7+ yr (ADACEL, BOOSTRIX)02/16/2023 Family History Medical HistoryRelationCommentsUterine CancerMotherbile duct cancerSisterColon CancerNo Family HistoryRelationStatusCommentsMotherDeceasedSisterDeceased Social History Tobacco UseTypesPacks/DayYears UsedDateSmoking Tobacco: NeverSmokeless Tobacco: NeverAlcohol UseStandard Drinks/WeekCommentsYes0 (1 standard drink = 0.6 oz pure alcohol)a few beers per dayAHC UtilitiesAnswerDate RecordedIn the past 12 months has the [employer], oil, or water company threatened to shut off services in your home?No11/02/2024Overall Financial Resource Strain (CARDIA) AnswerDate RecordedHow hard is it for you to pay for the very basics like food, housing, medical care, and heating?Not hard at all10/31/2023HQ-2AnswerDate RecordedPHQ-2 jagcz923Hunger Vital SignAnswerDate RecordedWithin the past 12 months, you worried that your food would run out before you got the money to buymore.Never true11/02/2024Within the past 12 months, the food you bought just didn't last and you didn't have money to get more.Never true 11/02/2024PRAPARE - TransportationAnswerDate RecordedIn the past 12 months, has lack of transportation kept you from medical appointments or from getting medications?No11/02/2024In the past 12 months, has lack of transportation kept you from meetings, work, or from getting things needed for daily living?No 11/02/2024Housing Stability Vital SignAnswerDate RecordedIn the last 12 months, was there a time when you were not able to pay the mortgage or rent on time?No 10/31/2023In the last 12 months, how many places have you lived?In the last 12 months, was there a time when you did not have a steady place to sleep or slept in [facility] (including now)?No10/31/2023Housing Stability Vital SignAnswerDate RecordedIn the last 12 months, was there a time when you were not able to pay the mortgage or rent on time?No11/02/2024In the past 12 months, how many times have you moved where you were living?t any time in the past 12 months, were you homeless or living in a [facility] (including now)?No 11/02/2024rea Deprivation IndexAnswerDate RecordedNational Score (1-100), lower number is lower ldsj739108/07/2023State Score (1-10), lower number is lower risk4 08/07/2023ata from: https://www.neighborhoodatlas.[facility]/. Last address used for vvwhsujjunn[address] [address]/07/2023Sex and Gender InformationValueDate RecordedSex Assigned at MrfkjKick34/24/2024 7:12 PM EDT Legal MevJfdx03/05/2023 3:01 PM ESTGender VcjfsgwgOaqd58/24/2024 7:12 PM EDT Sexual EerwqksapuhFmtyqaft84/24/2024 7:12 PM EDT Last Filed Vital Signs Vital SignReadingTime TakenCommentsBlood Dxuevlgb554/8108/10/2025 1:51 PM EST Ultds707608/10/2025 1:51 PM NMUKqczpesgxdy10.3 ??C (97.3 ??F)08/10/2025 1:51 PM ESTRespiratory Fnra659010/11/2024 1:51 PM ESTOxygen Lmpqkbfcgl54%08/10/2025 1:51 PM ESTInhaled Oxygen Concentration--Vjbbur12.7 kg (171 lb 3.2 oz)07/20/2025 1:16 PM VZOBlzsux518.5 cm (5' 9.49 )06/08/2025 1:18 PM EDTBody Mass Index24.93 06/08/2025 1:18 PM EDT Plan of Treatment DateTypeDepartmentCare Team (Latest Contact Info)Zezbmyhpmbl06/15/2026 8:15 AM ESTAppointment Molecular Imaging [address] [id number] NM DOTATATE-PET/CT NEUROENDOCRINE WHOLE BODY XQVMEJV6209/08/2025 9:15 AM EST Appointment Molecular Imaging [address] [id number] NM DOTATATE-PET/CT NEUROENDOCRINE WHOLE BODY ENLTKSD1309/08/2025 1:15 PM ESTOffice Visit [facility] [address] [place] [address] [place] [address] LAB AND SANDOSTATIN (pet morning of at )09/08/2025 1:40 PM ESTVisit (SP) Office Hematology/Oncology [address] [place] [address] [place] [address] Ra Silveira MD [address] [address] LAB AND SANDOSTATIN (pet morning of at )Health MaintenanceDue DateLast Done CommentsAnnual PCP Team Chronic Disease Visit1973Anxiety Screening 1973Depression Fqpkawjtl86/23/1973Hepatitis C Qfwsymugh22/23/1973 Pneumococcal Vaccine: 50+ (1 of 2 - PCV)1974Lipid Zdznacffj43/23/1990CT Vexonnrbhnxn73/23/2000Cologuard (FIT-DNA)2000Fecal Occult Blood2000 Vnsdlgpbrexbw95/23/2000RSV Vaccine (1 - Risk 50-74 years 1-dose series) 2005Shingrix Vaccine (1 of 2)2005Advance Directive Discussion 08/25/2024Medicare Annual Wellness Visit10/23/2024ovid-19 Vaccine ( - season)2025Influenza Vaccine (#1)04/25/20255272Dzllhuarxet75/10/379105/05/2025 Colorectal Cancer Cakslryzr41/10/2026Serum Ynzoclbvrl54/26/401846/, 06/29/2025, 06/08/2025, Additional history existsDiabetes Lqevtjtxz11/26/2028 07/20/2025, 06/29/2025, 06/08/2025, Additional history existsDTaP,Tdap,Td Vaccine (2 - Td or Tdap)/ Medical Devices ImplantedTypeAreaManufacturerDevice IdentifierShelf Expiration DateModel / Serial / LotParticles Trufill Nbca Embolization Kit Liquid System 1gm - [id number] Implanted:Qty: 1 [facility]plantN/A: ThroatJ&J CODMAN [id number] / / [id number] Feeding Set 12ff X 66cm Implanted:Qty: 1 on 08/13/2023 by Stephanie [facility]very [facility]: [id number]/19/[id number] / / [id number]-Pfos-J Percutane Endoscopic Gastrostomy Set Implanted:Qty: 1 on 08/13/2023 by Stephanie [facility]very MD at [facility]: Iuoyxle4804/25/[id number] / / [id number] Procedures Procedure NamePriorityDate/TimeAssociated DiagnosisCommentsCOMPREHENSIVE METABOLIC WXRXNXocdyzm50/26/2025 1:13 PM EST Iron deficiency anemia due to chronic blood loss CBC + SLPIMzqemuz36/26/2025 1:13 PM EST Iron deficiency anemia due to chronic blood loss COMPREHENSIVE METABOLIC AVPVLApscypk09/05/2025 1:44 PM EST Iron deficiency anemia due to chronic blood loss CBC + TENAWvsdxpe73/05/2025 1:44 PM EST Iron deficiency anemia due to chronic blood loss COMPREHENSIVE METABOLIC RXUOYAfefeyo36/15/2025 1:07 PM EDT Iron deficiency anemia due to chronic blood loss CBC + AAMAJpmmtbq15/15/2025 1:07 PM EDT Iron deficiency anemia due to chronic blood loss NM PET/CT NEUROENDOCRINE WHOLE BODY PGGLAAXFuwpkbr03/14/2025 9:09 AM EDT 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 ComponentValueRef RangeTest MethodAnalysis TimePerformed AtPathologist Signature Protein, Total6.46.3 - 8.0 g/dL07/20/2025 1:45 PM ESTNOR[facility] LABAlbumin3.93.9 - 4.9 g/dL07/20/2025 1:45 PM ESTNORTHCHEALTHSOURCE SAGINAW LABCalcium, Total8.98.5 - 10.2 mg/dL07/20/2025 1:45 PM EST [facility] LABBilirubin, Total0.70.2 - 1.3 mg/dL 07/20/2025 1:45 PM [facility] LABAlkaline Phosphatase 216(H)38 - 113 U/L109/19/2024 1:45 PM [facility] LABAST 3314 - 40 U/L109/19/2024 1:45 PM [facility] FTKLSF2062 - 54 U/L109/19/2024 1:45 PM [facility] KYOWnqsmcn717(H) 74 - 99 mg/dL07/20/2025 1:45 PM [facility] LABComment: The [place] Diabetes Association (ADA) provides guidance for cutoff values for fasting glucose andrandom glucose. The ADA defines fasting as no [...] Standards of Medical Care in Diabetes 2016, [place] Diabetes Association. Diabetes Care. 2016.39(Suppl 1). KDV464 - 24 mg/dL07/20/2025 1:45 PM [facility] LAB Creatinine1.020.73 - 1.22 mg/dL07/20/2025 1:45 PM [facility] TTBJnspag092627 - 144 mmol/L109/19/2024 1:45 PM [facility] LABPotassium4.33.7 - 5.1 mmol/L109/19/2024 1:45 PM [facility] JDQVhnwzcjj42883 - 107 mmol/L109/19/2024 1:45 PM EST [facility] YKBQK693(L)22 - 30 mmol/L109/19/2024 1:45 PM ESTJ.W. [facility] LABAnion Wtz971 - 15 mmol/L109/19/2024 1:45 PM [facility] LABEstimated Glomerular Filtration Rate 79>=60 mL/min/1.73m 07/20/2025 1:45 PM ESTJ.W. RUBY MEMORIAL [facility]ITAL LABComment:Estimated Glomerular Filtration Rate (eGFR) is calculated using the 2020 CKD-EPI creatinine equation. This equation utilizes serum creatinine, sex, and age as parameters. The creatinine assay has traceable calibration to isotope dilution- mass spectrometry. Refer to KDIGO guidelines for clinical interpretation. In patients with unstable renal function, e.g. those with acute kidney injury, the eGFRmay not accurately reflect actual GFR.Specimen (Source)Anatomical Location / LateralityCollection Method / VolumeCollection TimeReceived TimeBloodBLOOD SPECIMEN / UnknownVenipuncture / Qazfntu7607/20/2025 1:13 PM EST07/20/2025 1:13 PM EST Narrative Authorizing ProviderResult TypeResult StatusVivek Raoul ARNDTLABORATORYFinal ResultPerforming OrganizationAddressCity/State/ZIP CodePhone Number [facility] [address] [place] [address] * (ABNORMAL) COMPLETE BLOOD COUNT AND DIFFERENTIAL (07/20/2025 1:13 PM EST) Only the most recent of3 resultswithin the time period is included. ComponentValueRef RangeTest MethodAnalysis TimePerformed AtPathologist Signature WBC4.913.70 - 11.00 k/uL07/20/2025 1:20 PM [facility]RTASP[facility] LABRBC3.58(L)4.20 - 6.00 m/uL07/20/2025 1:20 PM [facility] AJLImguylsxjz57.0(L)13.0 - 17.0 g/dL07/20/2025 1:20 PM [facility] CVHNxaxmhenbd54.6(L)39.0 - 51.0 %07/20/2025 1:20 PM EST [facility] OSDJZZ74.980.0 - 100.0 fL07/20/2025 1:20 PM ESTNORTASPIRUS IRONWOOD [facility]OSP[facility] VCWDYT73.726.0 - 34.0 pg07/20/2025 1:20 PM [facility] WYELPVZ53.730.5 - 36.0 g/dL07/20/2025 1:20 PM [facility] LABRDW-CV14.411.5 - 15.0 %07/20/2025 1:20 PM [facility] LABPlatelet Wbmml510661 - 400 k/uL 07/20/2025 1:20 PM [facility] CPJZFY57.09.0 - 12.7 fL 07/20/2025 1:20 PM [facility] LABNeutrophils %66.3% 07/20/2025 1:20 PM [facility] LABAbs Neut3.261.45 - 7.50 k/uL07/20/2025 1:20 PM [facility] LABLymphocytes %8.4%07/20/2025 1:20 PM [facility] LABAbs Lymph0.41(L) 1.00 - 4.00 k/uL07/20/2025 1:20 PM [facility] Monocytes %20.2%07/20/2025 1:20 PM [facility] LABAbs Mono0.99(H)<0.87 k/uL07/20/2025 1:20 PM [facility]NOTHOM[facility] LAB Eosinophils %3.7%07/20/2025 1:20 PM [facility] LABAbs Eosin0.18<0.46 k/uL07/20/2025 1:20 PM [facility] Basophils %1.0%07/20/2025 1:20 PM ESTRTASPIR[facility] LABAbs Baso0.05<0.11 k/uL07/20/2025 1:20 PM [facility] Immature Granulocytes %0.4%07/20/2025 1:20 PM [facility] LABAbs Immature Gran<0.03<0.10 k/uL07/20/2025 1:20 PM [facility] LABNRBC0.0/100 WBC07/20/2025 1:20 PM [facility] LABAbsolute nRBC<0.01<0.01 k/uL07/20/2025 1:20 PM EST [facility] LABDiff TxxnNmkw39/26/2025 1:20 PM EST [facility] LABSpecimen (Source)Anatomical Location / LateralityCollection Method / VolumeCollection TimeReceived TimeBloodBLOOD SPECIMEN / UnknownVenipuncture / Omwqyoz1207/20/2025 1:13 PM EST07/20/2025 1:13 PM EST Narrative Authorizing ProviderResult TypeResult StatusVivek Raoul MDLABORATORYFinal ResultPerforming OrganizationAddressCity/State/ZIP CodePhone Number [facility] [address] [place] [address] * NM PET/CT NEUROENDOCRINE WHOLE BODY IMAGING (06/07/2025 9:09 AM EDT)Anatomical RegionLateralityModalityNuclear MedicineSpecimen (Source)Anatomical Location / LateralityCollection Method / VolumeCollection TimeReceived Time06/07/2025 9:09 AM EDT Impressions 06/08/2025 2:10 PM EDT IMPRESSION: Since 03/09/2025, stable distribution/burden of SSTR2 expressing disease. PRIMARY DISEASE SITE: * ??Similar SSTR2 expressing distal ilium lesion. JACKELYN DISEASE: * ??Stable SSTR2 expressing abdominal, thoracic, and supraclavicular jackelyn metastases. METASTATIC DISEASE: * ??Stable SSTR2 express osseous, duodenal, nick-penile/subcutaneous, and hepatic metastases. * ??Similar suspected SSTR2 expressing tumor infiltration of the splenic vein. ADDITIONAL FINDINGS: * ??Serially enlarging apical left upper solid nodule is likely a lesion along the adenocarcinoma spectrum. ??Consider pulmonary consultation. Krenning Score: 4 * ??Score 0: No abnormal uptake * ??Score 1: Very low uptake * ??Score 2: Uptake less than or equal to the liver * ??Score 3: Uptake greater than liver but less than spleen * ??Score 4: Uptake greater than the spleen Reclamation Furnace Operator: MIKY ?? Transcribe Date/Time: Jun 08 2025 ??9:47A Dictated by : OMERO ORTIZ MD This examination was interpreted and the report reviewed and electronically signed by: RONA PATINO DO on Jun 08 2025 ??2:08PM ??EST Narrative 06/08/2025 2:10 PM EDT * * *Final Report* * * DATE OF EXAM: Jun 07 2025 ??9:09AM ?? MCN ?? 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 * * * * Physician Interpretation * * * * EXAMINATION: SOMATOSTATIN RECEPTOR PET-CT CLINICAL HISTORY: Metastatic neuroendocrine tumor of the small bowel with large metastatic lymph node causing occlusion of the SMV and duodenum. EXAM CATEGORY: Subsequent treatment strategy. TECHNIQUE: Radiopharmaceutical was administered IV followed by PET imaging from the skull vertex to thighs. ??Free breathing, low dose CT of the same body region was acquired without IV contrast for attenuation correction and anatomic localization. ??Unenhanced imaging is limited for the evaluation of some pathology and the acquired CT was not designed to produce diagnostic CT scan quality. ??Physiologic/non-pathologic uptake in some body regions could confound or obscure some pathology. * ??CT Dose-Length Product (DLP): 300 mGy*cm * ??CT Dose Reduction Employed: Yes * ??Injection site: Right Forearm-Antecubital * ??Injected activity: 6.0 mCi * ??Uptake Time: 76 minutes * ??Radiopharmaceutical: Ga-68 Dotatate COMPARISON: Ga-68 Dotatate PET/CT 03/09/2025, 12/08/2024, and 08/03/2024 CORRELATION: CT 02/23/2025 RESULT: REFERENCES: Dotatate uptake serves as a surrogate marker for somatostatin receptor 2 (SSTR2) expression. ??All reported standardized uptake values represent maximum SUV (SUVmax) per body weight, unless otherwise specified. ??SUV Reference Values: * ??Background Liver: SUVmax 4.5 * ??Background Spleen: SUVmax 12.7 Localizer Images: No additional findings. HEAD AND NECK: Head: No radiotracer avid lesion or mass effect in the intracranial compartment. Aerodigestive Tract: No radiotracer avid lesion. Lymph Nodes: Radiotracer avid left supraclavicular lymphadenopathy is not substantially changed from prior, measuring up to 0.8 cm (Max SUV:21.8; image 98), previously 0.8 cm with SUV max 19.0. Neck Soft Tissues: No radiotracer avid thyroid nodule. CHEST: Lungs & Pleura: Stable 1.6 cm left apical solid irregular nodule (Max SUV:2.3; image 111), previously 1.7 cm with SUV max 1.6 albeit with increasing size/density relative to older exams. ??Otherwise, no radiotracer avid pulmonary nodule or consolidation. ??No pleural effusion. Lymph Nodes: No radiotracer avid lymphadenopathy. Mediastinum: No radiotracer avid mass. ??Radiotracer avid retrocrural lymphadenopathy, not substantially changed from prior, for example: * ??0.5 cm right paravertebral/retrocrural node (Max SUV:12.2; image 171), previously SUV max 12.4 * ??0.5 cm retrocrural node (Max SUV:11.3; image 189), previous SUV max 9.3 Cardiovascular: Blood pool activity. ??No pericardial effusion. ??Normal heart size. ??Thoracic aortic calcifications. Chest Wall: No radiotracer avid soft tissue lesion. ABDOMEN AND PELVIS: Hepatobiliary: Small nodular focus of increased uptake in hepatic segment II/III, corresponding with arterial hyperenhancing focus on prior CTA 02/23/2025 (Max SUV:7.2; image 170), not significantly changed. Spleen: No radiotracer avid lesion. ??No splenomegaly. Pancreas: Redemonstrated diffuse radiotracer avid peripancreatic uptake corresponding with apparent tumor and splenic vein on correlation CT, SUV max 29.9. Adrenals: No radiotracer avid nodule. Urinary Tract: Physiologic radiotracer excretion in the renal collecting systems and urinary bladder. ??No hydronephrosis. GI Tract: Postoperative changes of gastrojejunal bypass on the left upper quadrant. ??Focal uptake in the distal ilium is again seen (Max SUV:12.4; image 226), previous SUV max 10.5. ??Radiotracer avid duodenal/paraduodenal mass has not substantially changed from prior (Max SUV:37.7; image 198), previous SUV max 36.1. No bowel dilation. Peritoneum & lymph nodes: * ??Redemonstrated tracer avid 1.9 x 1.4 cm calcified right mesenteric node (Max SUV:24.9; image 221), previously 1.8 cm with SUV max 28.3. * ??Stable radiotracer avid para-aortic lymphadenopathy, for example 1.6 cm left periaortic node (Max SUV:28.4; image 193), previously 1.6 cm with SUV max 28.5. * ??Stable 0.9 cm aortocaval node (Max SUV:20.9; image 201), previously 0.8 cm with SUV max 22.3. Vasculature: Blood pool activity. ??Vascular calcifications without an abdominal aortic aneurysm. Pelvic Organs: No radiotracer avid lesion. MUSCULOSKELETAL: Bones: Radiotracer avid osseous lesions are again seen, for example: * ??Right ilium (Max SUV:14.4; image 231), previous SUV max 16.7 * ??Left iliac crest (Max SUV:4.0; image 229), previous SUV max 6.2 * ??Posterolateral left fifth rib (Max SUV:3.2; image 135), previous SUV max 3.7. * ??No new radiotracer avid osseous lesion. Soft Tissues: Tracer avid soft tissue nodule at the left penile base measuring 1.6 x 0.9 cm (Max SUV:22.4; image 291), previous SUV max 21.3. 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 EXAM CATEGORY: Subsequent treatment strategy. TECHNIQUE: Radiopharmaceutical [...] some pathology. * CT Dose-Length Product (DLP): 300 mGy*cm * CT Dose Reduction Employed: Yes * Injection site: Right Forearm-Antecubital * Injected activity: 6.0 mCi * Uptake Time: 76 minutes * Radiopharmaceutical: Ga-68 Dotatate COMPARISON: Ga-68 Dotatate PET/CT 03/09/2025, 12/08/2024, and 08/03/2024 CORRELATION: CT 02/23/2025 RESULT: REFERENCES: Dotatate uptake serves as a surrogate marker for somatostatin receptor 2 (SSTR2) expression. All reported standardized uptake values represent maximum SUV (SUVmax) per body weight, unless otherwise specified. SUV Reference Values: * Background Liver: SUVmax 4.5 * Background Spleen: SUVmax 12.7 Localizer Images: No additional findings. HEAD AND NECK: Head: No radiotracer avid lesion or mass effect in the intracranial compartment. Aerodigestive Tract: No radiotracer avid lesion. Lymph Nodes: Radiotracer avid left supraclavicular lymphadenopathy is not substantially changed from prior, measuring up to 0.8 cm (Max SUV:21.8; image 98), previously 0.8 cm with SUV max 19.0. Neck Soft Tissues: No radiotracer avid thyroid nodule. CHEST: Lungs & Pleura: Stable 1.6 cm left apical solid irregular nodule (Max SUV:2.3; image 111), previously 1.7 cm with SUV max 1.6 albeit with increasing size/density relative to older exams. Otherwise, no radiotracer avid pulmonary nodule or consolidation. No pleuraleffusion. Lymph Nodes: No radiotracer avid lymphadenopathy. Mediastinum: No radiotracer avid mass. Radiotracer avid retrocrural lymphadenopathy, not substantially changed from prior, for example: * 0.5 cm right paravertebral/retrocrural node (Max SUV:12.2; image 171), previously SUV max 12.4 * 0.5 cm retrocrural node (Max SUV:11.3; image 189), previous SUV max9.3 Cardiovascular: Blood pool activity. No pericardial effusion. Normal heart size. Thoracic aortic calcifications. Chest Wall: No radiotracer avid soft tissue lesion. ABDOMEN AND PELVIS: Hepatobiliary: Small nodular focus of increased uptake in hepatic segment II/III, corresponding with arterial hyperenhancing focus on prior CTA 02/23/2025 (Max SUV:7.2; image 170), not significantly changed. Spleen: No radiotracer avid lesion. No splenomegaly. Pancreas: Redemonstrated diffuse radiotracer avid peripancreatic uptake corresponding with apparent tumor and splenic vein on correlation CT, SUV max 29.9. Adrenals: No radiotracer avid nodule. Urinary Tract: Physiologic radiotracer excretion in the renal collecting systems and urinary bladder. No hydronephrosis. GI Tract: Postoperative changes of gastrojejunal bypass on the left upper quadrant. Focal uptake in the distal ilium is again seen (Max SUV:12.4; image 226), previous SUV max 10.5. Radiotracer avid duodenal/paraduodenal mass has not substantially changed from prior (Max SUV:37.7; image 198), previous SUV max 36.1. No bowel dilation. Peritoneum & lymph nodes: * Redemonstrated tracer avid 1.9 x 1.4 cm calcified right mesenteric node (Max SUV:24.9; image 221), previously 1.8 cm with SUV max 28.3. * Stable radiotracer avid para-aortic lymphadenopathy, for example 1.6 cm left periaortic node (Max SUV:28.4; image 193), previously 1.6 cm with SUV max 28.5. * Stable 0.9 cm aortocaval node (Max SUV:20.9; image 201), previously 0.8 cm with SUV max 22.3. Vasculature: Blood pool activity. Vascular calcifications without an abdominal aortic aneurysm. Pelvic Organs: No radiotracer avid lesion. MUSCULOSKELETAL: Bones: Radiotracer avid osseous lesions are again seen, for example: * Right ilium (Max SUV:14.4; image 231), previous SUV max 16.7 * Left iliac crest (Max SUV:4.0; image 229), previous SUV max 6.2 * Posterolateral left fifth rib (Max SUV:3.2; image 135), previous SUV max 3.7. * No new radiotracer avid osseous lesion. Soft Tissues: Tracer avid soft tissue nodule at the left penile base measuring 1.6 x 0.9 cm (Max SUV:22.4; image 291), previous SUV max 21.3. IMPRESSION IMPRESSION: Since 03/09/2025, stable distribution/burden of SSTR2 expressingdisease. PRIMARY DISEASE SITE: * Similar SSTR2 expressing distal ilium lesion. JACKELYN DISEASE: * Stable SSTR2 expressing abdominal, thoracic, and supraclavicular jackelyn metastases. METASTATIC DISEASE: * Stable SSTR2 express osseous, duodenal, nick-penile/subcutaneous, and hepatic metastases. * Similar suspected SSTR2 expressing tumor infiltration of the splenic vein. ADDITIONAL FINDINGS: * Serially enlarging apical left upper solid nodule is likely a lesion along the adenocarcinoma spectrum. Consider pulmonary consultation. Krenning Score: 4 * Score 0: No abnormal uptake * Score 1: Very low uptake * Score 2: Uptake less than or equal to the liver * Score 3: Uptake greater than liver but less than spleen * Score 4: Uptake greater than the spleen Reclamation Furnace Operator: MIKY Transcribe Date/Time: Jun 08 2025 9:47A Dictated by : OMERO ORTIZ MD This examination was interpreted and the report reviewed and electronically signed by: RONA PATINO DO on Jun 08 2025 2:08PM EST Authorizing ProviderResult TypeResult StatusJaimee Giovany MATERIALS SPECIALIST.CNPNM-PAMAFinal Result * COLONOSCOPY DIAGNOSTIC (11/01/2024 2:27 PM EDT)Anatomical RegionLaterality ModalityOtherSpecimen (Source)Anatomical Location / LateralityCollection Method / VolumeCollection TimeReceived Time11/01/2024 2:27 PM EDT Narrative 11/01/2024 3:20 PM EDT [facility] Gastrointestinal Endoscopy Patient Name: Bobby Julien Procedure Date: 11/01/2024 2:27 PM Date of : 1955 Admit Type: Inpatient Age: 69 Room: [facility] GI02 Gender: Male Note Status: Finalized Attending MD: Gen Winters MD, [id number] Procedure: ?Colonoscopy Indications: ?Evaluation of unexplained GI bleeding presenting ?with Hematochezia Providers: ?Gen Winters MD, Radha Silva RN, Itzel ?LUCILLE Alicia (Assisting Nurse), Sherri Lilly ?(Assisting Nurse) Patient Profile: ?This is a 69 year old male with PMHx of ?metastatic neuroendocrine tumor (confirmed on ?pancreas bx s/p palliative bypass 10/2023), HTN, ?HLD, BPH, CKD stage III who presented with ?anemia and GIB for which GI is being consulted. ?Refer to note in patient chart for documentation ?of history and physical. Last Colonoscopy: 2020. Referring Physician: ?Nia Rojas CNP (Referring MD) Medicines: ?Monitored Anesthesia Care Complications: ?No immediate complications. Procedure: ?Pre-Anesthesia Assessment: ?- Prior to the procedure, a History and Physical ?was performed, and patient medications and ?allergies were reviewed. The patient's tolerance ?of previous anesthesia was also reviewed. The ?risks and benefits of the procedure and the ?sedation options and risks were discussed with ?the patient. All questions were answered, and ?informed consent was obtained. Prior ?Anticoagulants: The patient has taken no ?anticoagulant or antiplatelet agents. ASA Grade ?Assessment: III - A patient with severe systemic ?disease. After reviewing the risks and benefits, ?the patient was deemed in satisfactory condition ?to undergo the procedure. ?After I obtained informed consent, the scope was ?passed under direct vision. Throughout the ?procedure, the patient's blood pressure, pulse, ?and oxygen saturations were monitored ?continuously. The [facility] [id number] was ?introduced through the anus and advanced to the ?terminal ileum. The colonoscopy was performed ?without difficulty. The patient tolerated the ?procedure well. The terminal ileum, ileocecal ?valve, appendiceal orifice, and rectum were ?photographed. The quality of the bowel ?preparation was evaluated using the BBPS (Doswell ?Bowel Preparation Scale) with scores of: Right ?Colon = 2 (minor amount of residual staining, ?small fragments of stool and/or opaque liquid, ?but mucosa seen well), Transverse Colon = 2 ?(minor amount of residual staining, small ?fragments of stool and/or opaque liquid, but ?mucosa seen well) and Left Colon = 2 (minor ?amount of residual staining, small fragments of ?stool and/or opaque liquid, but mucosa seen ?well). The total BBPS score equals 6. The ?quality of the bowel preparation was fair. Scope Withdrawal Time: 0 hours 8 minutes 55 seconds Moderate Sedation: ? MAC anesthesia was administered by the anesthesia team. Total Procedure Duration: 0 hours 11 minutes 41 seconds Findings: ? The perianal and digital rectal examinations were normal. ? The terminal ileum appeared normal. ? Internal hemorrhoids were found during retroflexion. The hemorrhoids ? were large. ? The exam was otherwise normal throughout the examined colon. Impression: ? - Preparation of the colon was fair. ?- The examined portion of the ileum was normal. ?- Internal hemorrhoids. ?- No specimens collected. ?- No signs of stigmata of active or recent GI ?bleeding. Ileal mass not encountered. Recommendation: ? - Return patient to hospital [facility] for ongoing ?care. ?- Resume previous diet today. ?- Continue present medications. ?- Suggest daily bowel regimen to avoid hard ?stools and straining, which can worsen ?hemorrhoidal bleeding. ?- The patient is not currently taking ?anticoagulant or antiplatelet agents. ?- Repeat colonoscopy at appointment to be ?scheduled if indicated based on overall ?prognosis because the bowel preparation was ?suboptimal. ?- Patient has a contact number available for ?emergencies. The signs and symptoms of potential ?delayed complications were discussed with the ?patient. Return to normal activities tomorrow. ?Written discharge instructions were provided to ?the patient. Procedure Code(s): ?--- Professional --- ?36047, Colonoscopy, flexible; diagnostic, ?including collection of specimen(s) by brushing ?or washing, when performed (separate procedure) Diagnosis Code(s): ?--- Professional --- ?K64.8, Other hemorrhoids ?K92.1, Melena (includes Hematochezia) CPT copyright 2020 [employer]. All rights reserved. The codes documented in this report are preliminary and upon theatrical performer review may be revised to meet current compliance requirements. Attending Participation: ? I personally performed the entire procedure. Scope In: 2:54:05 PM Scope Out: 3:05:46 PM MD Gen Escobar MD 11/01/2024 3:18:10 PM This report has been signed electronically by Gen Winters MD Number of Addenda: 0 Note Initiated On: 11/01/2024 2:27 PM Estimated Blood Loss: ? Estimated blood loss was minimal. Authorizing ProviderResult TypeResult StatusNatalie Bob MATERIALS SPECIALIST.MANUAL TESTER DIGESTIVE DISEASEFinal Result from Last 3 Months or Most Recently Relevant to Health Maintenance Insurance * Guarantor: Bobby Julien TypeRelation to PatientDate of BirthPhone Billing AddressPersonal/NctlzyTqnt1955 [address] [place] [address] Advance Directives * Full Code (Latest Code Status on File) Date ActivatedDate InactivatedComments02/25/2025 9:04 PM02/27/2025 9:45 PMQuestion AnswerCommentsFull Code Order Discussed With:* Patient * Full Code Date ActivatedDate InactivatedComments02/23/2025 6:26 PM02/25/2025 8:02 PMQuestion AnswerCommentsFull Code Order Discussed With:* Surrogate Decision Maker * Full Code Date ActivatedDate InactivatedComments10/31/2024 2:42 PM3/07/2025 8:00 PMQuestion AnswerCommentsFull Code Order Discussed With:* Patient Care Teams Team MemberRelationshipSpecialtyStart DateEnd Date Rene Pandey MD [address] [facility] [facility] [facility] [place] [address] (Fax) PCP - GeneralFamily Keuameab72/12/23 Ra Silveira MD [address] [place] [address] Hematology/Oncology11/17/24 Itzel Singh, MATERIALS SPECIALIST.MANUAL TESTER [address] [place] [address] Nurse PractitionerHematology/Oncology01/22/25
--- OUTSIDE RECORDS SUMMARY | 2025-08-20 07:21 | XMS_ITS | Clinical Summary ---
Author Organization [facility] Address [address] [place] [address] Care Team Providers Care Plant Breeder Name Role Phone Unavailable Primary Care Provider Unavailabl e Social History Tobacco UseTypesPacks/DayYears UsedDateSmoking Tobacco: Never AssessedSex and Gender InformationValueDate RecordedSex Assigned at BirthNot on fileLegal Sex Male07/04/2022 1:32 PM ESTGender IdentityNot on fileSexual OrientationNot on file Plan of Treatment Not on file
--- OUTSIDE RECORDS SUMMARY | 2025-08-20 07:21 | XMS_ITS ---
Author Organization [facility] Address [address] [place] [id number] Care Team Providers Care Surgical Services Assistant Name Role Phone Rene Pandey MD Primary Care Provider Ra Silveira MD Unavailable [phone] Itzel Singh APRN.JAVA LEAD ARCHITECT Unavailable [phone] Active Problems ProblemNoted DateDiagnosed DateMalnutrition of mild rqqxsa1302/27/2025hronic alcohol use02/26/2025Gastric varix02/26/2025GIB (gastrointestinal bleeding) 02/25/2025UGIB (upper [...] 2024. Since provider does not round at [place] will place consult with [facility] heme/onc for eval and recommendations. Acute on chronic blood loss lfpfzp1310/31/2024 Assessment & Plan (11/03/2024 3:19 PM EDT): [...] with OP oncology provider History of bypass qqsfuuykhgnnqyesu20/03/2024 Overview (02/25/2025): October 29, 2023 GERD (gastroesophageal reflux disease)10/13/2023 Assessment & Plan (10/13/2023 11:53 AM EST): Assessment: Managed and stable with current medication. Denies difficulty swallowing or any bleeding. Gastric outlet lbdqdywqmzl36/08/2024Metastatic malignant neuroendocrine tumor to lymph node Assessment & Plan (10/13/2023 11:54 AM EST): Assessment: small bowel neuroendocrine tumor with metastases to high ileocolic nodes causing occlusion of the portal vein and abutment of the SMA. The patient also presented initially with a gastric outlet obstruction and was admitted for nutritional support and workup. Primary malignant neuroendocrine tumor of gdaoqyxh37/27/2023Convulsions 08/16/2023Vasovagal hbdpivj0108/16/2023eneralized zhuegxov30/22/2023HTN (hypertension)08/08/2023 Assessment & Plan (11/03/2024 3:19 PM [...] 93/53 08/14/2023 102/74 On total parenteral nutrition (TPN)08/08/20236898Pribvzoeia05 Assessment & Plan (10/13/2023 11:52 AM EST): Assessment: daily drinker, advised to taper or stop prior to surgery HLD (hyperlipidemia)enign prostatic temvjzcdupo13/06/2023 Overview (02/25/2025): Comment on above: Problem List clean-up per request of Phys. EHR Cmte Esophageal vvqrirhvcilw29/06/2023Heart oanshq7701/28/2023rimary osteoarthritis of both knees01/28/20237361Dchzdrmfn86/06/2023KD stage 3a, GFR 45-59 ml/min01/28/2023 Current Treatment and Therapy Plans AMB OCTREOTIDE DEPOT 20 D1 - Q21D* Plan Start Date:12/03/2023 Plan Provider:Ra Silveira MD Linked Problems Metastatic malignant neuroen docrine tumor to lymph node (HCC) Treatment MedicationsCurrent Day (Day 1, Cycle 26 - Planned for 09/07/2025)Next Day (Day 1, Cycle 27 - Planned for 09/28/2025)* * octreotide LAR (SandoSTATIN LAR) * * octreotide LAR 20 mg depot (monthly) injection (SandoSTATIN LAR) * * octreotide LAR 20 mg depot (monthly) injection (SandoSTATIN LAR) Past Treatment and Therapy Plans Resolved Problems ProblemNoted DateDiagnosed DateResolved DateAcute blood loss obubqv2311/01/2024 11/03/2024GI bleed5011/03/2024 Assessment & Plan (11/03/2024 3:19 PM EDT): - Resolved - EGD/COLONOSCOPY revealed hemorrhoids; follow up with [facility] as an OP Assessment & Plan (10/31/2024 3:07 PM EDT): Mr. Alexander presents today with 1 wk of bloody diarrhea and 2 episodes of bloody emesis. Went to [facility] ED 4 days ago and hb was 8.2. Also experiencing sxs of fatigue, dyspnea, and occ dizzyness. 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 Plan: -ordered RBC transfusion of 2units. -GI on consult, appreciate recs. -IVF -NPO after midnight-Hgb on arrival and c0hwsnb x 24 hours. -Monitor stool color and volume. -Transfuse again if Hgb <7 and patient symptomatic. -IV Protonix BID. -GI consulted; awaiting recommendations. Hematemesis with rhgbel10Melena Lkxluoxzpgmd40Post-op painEncounter for attention to ltdupmionyo82DehydrationNear wbtdilu31Malnutrition of moderate olzqwp52 Pre-op ebhjazilju42Therapeutic drug ihquifcpgq65/15/2023 02/25/2025Feeding tatvuxtsjidk85Failure to thrive in adult Mild mitral meethhuudeqzl92/06/202302/19/Mild tricuspid ephjxdicknpff89/06/202302/19/Stage 2 chronic kidney wtzgqhe93 Assessment & Plan (10/13/2023 11:52 AM EST): [...] 0.73 - 1.22 mg/dL Final Benign essential mouvxyewzkdb26/06/202307/11/2024
--- OUTSIDE RECORDS SUMMARY | 2025-08-20 07:21 | XMS_ITS | Clinical Summary ---
Author Organization [employer] [facility] tem Address [id number] [address] [place] [address] Care Team Providers Care Purchasing Intern Name Role Phone Unavailable Primary Care Provider Unavailabl e Social History Tobacco UseTypesPacks/DayYears UsedDateSmoking Tobacco: Never AssessedChildcare AnswerDate GbnplszvAnfcwkmzfTdvdrzv97/12/2019EmploymentAnswerDate Recorded XmhzqawjcoSfyqxkb64/12/2019Sex and Gender InformationValueDate RecordedSex Assigned at BirthNot on fileLegal CakIght3003/30/2015 12:02 PM EDTGender Identity Not on fileSexual OrientationNot on file Last Filed Vital Signs Vital SignReadingTime TakenCommentsBlood Dvaqtnha503/80109/23/2016 10:48 AM EST Pulse--Temperature--Respiratory Rate--Oxygen Saturation--Inhaled Oxygen Concentration--Ujqyva765.1 kg (225 lb)07/24/2017 10:48 AM OOKWwxbro218.7 cm (5' 8 )07/24/2017 10:48 AM ESTBody Mass Index34.21109/23/2016 10:48 AM EST Plan of Treatment Not on file Medical Devices Not on file
--- OUTSIDE RECORDS SUMMARY | 2025-08-20 07:21 | XMS_ITS | Clinical Summary ---
Author Organization [facility] Address [address] [place] [address] Care Team Providers Care Supply Chain Project Manager Name Role Phone Rene Pandey MD Primary Care Provider [phone] Ra Silveira MD Unavailable [phone] Jean Madsen MD Unavailable [phone] Allergies No known active allergies Medications MedicationSigDispense QuantityRefillsLast FilledStart DateEnd DateStatus octreotide (SandoSTATIN) 20 MG injection Inject 20 mg into the shoulder, thigh, or buttocks See administration instructions Take to provideroffice for and inject 20mg IM every 3 weeks as uwhvzex22/27/2025Active finasteride (Proscar) 5 MG tablet Indications:Benign prostatic hyperplasia with weak urinary streamTake 1 tablet (5 mg) by mouth Daily Do not crush, chew, or split. 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 of bypass gastrojejunostomy 04/27/2024 Overview (04/27/2024): October 29, 2023 Gastric outlet obstruction ([facility]-HCC)4Primary malignant neuroendocrine tumor of lsrvxhan36/27/2023Metastatic malignant neuroendocrine tumor to lymph node08/20/2023Near rsnnynd2508/15/2023Therapeutic drug abldiozbsh94/15/2023 Pwsouzykvv77/06/2023symptomatic varicose veins of both lower extremities 01/28/2023Venous insufficiency of both lower uhgqrcwiokr70/06/2023enign essential ivtjyniodmbt77/06/2023enign prostatic hyperplasia with lower urinary tract wqwsljhu13/06/2023ardiac xlfsbycnrox29/06/2023hronic alcoholic gastritis without oxhsicluuh67/06/2023Esophageal xuqkludithxx56Heart wedoyk0001/28/20237856Okajlhornnyvtg03/06/2023Hypertensive ijglsgrjpoq11/06/2023 Hypertensive ventricular hypertrophy without heart nccaipe8001/28/2023 Smygqlkvgndzlcoq14/06/2023Mild mitral cvqooimeqobpa31/06/2023Mild tricuspid /06/7823Wfujnjpcce16/06/2023rimary osteoarthritis of both knees 01/28/20234245Rdczsuhjm34/06/2023Stage 3a chronic kidney kbhvssi3901/28/2023Vitamin D xefjzzyubg47/06/2023Osteoarthritis of knee10/27/2018 Resolved Problems ProblemNoted DateDiagnosed DateResolved DateGeneralized hfwfaiot14/22/2023 04/27/2024On total parenteral nutrition (TPN)Severe protein- calorie malnutrition ([facility])Failure to thrive in adult uodenal massLower urinary tract symptoms due to benign prostatic izngywysojh96 Immunizations ImmunizationAdministration DatesNext KvjOcwv7202/16/2023 Family History Medical HistoryRelationNameCommentsNo Known ProblemsDaughterHeart diseaseFather DiabetesMaternal GrandfatherDementiaMotherHeart diseaseMotherCancerSiblinglymph nodesSisterNo Known ProblemsSonRelationNameStatusCommentsDaughterAlive1 daughter FatherDeceasedMaternal GrandfatherMotherDeceasedSiblingDeceasedSister2 sisters SonAlive2 sons Social History Tobacco UseTypesPacks/DayYears UsedDateSmoking Tobacco: NeverSmokeless Tobacco: Never Tobacco Cessation:Counseling Given: Yes Alcohol UseStandard Drinks/TwtpIeizseyiJsh53 (1 standard drink = 0.6 oz pure alcohol)Caffeine intake : 1-2 cups perdaySocial Connection and Isolation Panel AnswerDate RecordedIn a typical week, how many times do you talk on the phone with family, friends, or neighbors?Once a week10/14/2023How often do you get together with friends or relatives?More than three times a week10/14/2023How often do you attend anabaptist or sikh services?1 to 4 times per year10/14/2023 Do you belong to any clubs or organizations such as anabaptist groups, unions, fraternal or athletic groups, or school groups?Yes10/14/2023How often do you attend meetings of the clubs or organizations you belong to?Never10/14/2023re you , , , , never , or living with a partner?Urqqgbx7910/14/2023UDIT-CAnswerDate RecordedQ1: How often do you have a drink containing alcohol?4 or more times a week10/14/2023Q2: How many drinks containing alcohol do you have on a typical day when you are drinking?5 or 6 10/14/2023Q3: How often do you have six or more drinks on one occasion?Weekly 10/14/2023Overall Financial Resource Strain (CARDIA)AnswerDate RecordedHow hard is it for you to pay for the very basics like food, housing, medical care, and heating?Not very hard10/14/2023HQ-2AnswerDate RecordedPatient Health Questionnaire-2 Jrkes280Fin[facility] [place] [facility] - Occupational Stress QuestionnaireAnswerDate RecordedDo you feel stress - tense, restless, nervous, or anxious, or unable to sleep at night because yourmind is troubled all the time - these days?To some jsffro4510/14/2023Exercise Vital Sign AnswerDate RecordedOn average, how many days per week do you engage in moderate to strenuous exercise (like a brisk walk)?0 days10/14/2023On average, how many minutes do you engage in exercise at this level?0 min10/14/2023Hunger Vital Sign AnswerDate RecordedWithin the past 12 months, you worried that your food would run out before you got the money to buymore.Never true10/14/2023Within the past 12 months, the food you bought just didn't last and you didn't have money to get more.Never true10/14/2023RAPARE - TransportationAnswerDate RecordedIn the past 12 months, has lack of transportation kept you from medical appointments or from getting medications?No10/14/2023In the past 12 months, has lack of transportation kept you from meetings, work, or from getting things needed for daily living?No10/14/2023Housing Stability Vital SignAnswerDate RecordedIn the last 12 months, was there a time when you were not able to pay the mortgage or rent on time?No10/14/2023Number of Places Lived in the Last YearNot on file 10/14/2023In the last 12 months, was there a time when you did not have a steady place to sleep or slept in [facility] (including now)?No10/14/2023Housing Stability Vital SignAnswerDate RecordedIn the last 12 months, was there a time when you were not able to pay the mortgage or rent on time?No10/14/2023Number of Times Moved in the Last YearNot on file10/14/2023Homeless in the Last YearNot on file10/14/2023EducationAnswerDate RecordedWhat is the highest level of school you have completed or the highest degree you have received?High school graduate 06/10/2023Sex and Gender InformationValueDate RecordedSex Assigned at BirthNot on fileLegal SnyMklp1411/06/2022 7:16 PM EDTGender IdentityNot on fileSexual OrientationNot on fileOccupationIndustryJob Start DateJob End DateWorks full timeNot on fileNot on fileNot on file Last Filed Vital Signs Vital SignReadingTime TakenCommentsBlood Vvlkxlgk482/8008 9:31 AM EDT Npvef4153 9:31 AM EDTTemperature--Respiratory Rate--Oxygen Dcltqcbqnu57% 04/13/2025 9:31 AM EDTInhaled Oxygen Concentration--Anwxyy43.4 kg (168 lb 8 oz) 04/13/2025 9:31 AM TIGQyodyx318.5 cm (5' 9.5 )04/13/2025 9:31 AM EDTBody Mass Index24.5308 9:31 AM EDT Plan of Treatment DateTypeDepartmentCare Team (Latest Contact Info)Mcynsszmdks44/12/2026 9:30 AM ESTOffice Visit [facility] [address] [facility] [address] [place] [address] Rene Pandey MD [address] [facility] [address] [place] [address] Health MaintenanceDue DateLast DoneCommentsCT Lrgmyjfodrpa1955FIT-DNA 1955FIT1955FOBT07/17/19551409Xevcmmvdyhglk1955Influenza Vaccine (#1)2025Medicare Annual Wellness (AWV)6011/23/2024, 01/29/2023, 01/03/2022, Additional history pyjonsOyuwysyxhfm09/10/15901111/01/2024, 11/01/2024, 07/04/2021, Additional history existsColorectal Cancer Screening 11/01/2034Pneumococcal Vaccine: 65+ YearsDiscontinued Procedures Procedure NamePriorityDate/TimeAssociated DiagnosisCommentsCOLONOSCOPYRoutine 07/04/2021 12:00 PM EST Unspecified abdominal pain Abnormal findings on diagnostic imaging of other abdominal regions, including retroperitoneum Upper abdominal pain, unspecified from Last 3 Months or Most Recently Relevant to Health Maintenance Results * Colonoscopy (07/04/2021 12:00 PM EST)Anatomical RegionLateralityModality EndoscopySpecimen (Source)Anatomical Location / LateralityCollection Method / VolumeCollection TimeReceived Time07/04/2021 12:00 PM EST Narrative 07/04/2021 12:00 PM EST PERFORMED AT [facility] LOCATION:[id number] Procedure Note CONVERSION, GENERIC - 01/08/2023 PERFORMED AT [facility] LOCATION:[id number] Authorizing ProviderResult TypeResult StatusAlbert Ankit Carl MDENDOSCOPY PROCEDURE ORDERABLESFinal Result from Last 3 Months or Most Recently Relevant to Health Maintenance Insurance Advance Directives TypeDate RecordedPatient RepresentativeExplanationAdvance Directives and Living [id number] Power Of Industrial Welder Care Teams Team MemberRelationshipSpecialtyStart DateEnd Date Rene Pandey MD [address] [facility] [address] [place] [address] (Fax) PCP - GeneralFamily Medicine01/24/23 Ra Silveira MD [address] [place] [address] [place] [address] Referring PhysicianHematology and Oncology11/23/24 Jean Madsen MD [address] [place] [address] [address] [place] [address] Referring PhysicianCardiology11/23/24
--- OUTSIDE RECORDS SUMMARY | 2025-08-20 07:21 | XMS_ITS | Clinical Summary ---
Author Organization [facility] Address [address] [place] [address] Phone Care Team Providers Care Disease Intervention Specialist Name Role Phone Rene Pandey MD Primary Care Provider Social History Tobacco UseTypesPacks/DayYears UsedDateSmoking Tobacco: Never AssessedSex and Gender InformationValueDate RecordedSex Assigned at BirthNot on fileLegal Sex Male12/19/2022 3:06 PM EDTGender IdentityNot on fileSexual OrientationNot on file Last Filed Vital Signs Vital SignReadingTime TakenCommentsBlood Fkrwfwcs941/7806 11:36 AM EDT Qykac274502/06/2023 11:36 AM EDTTemperature--Respiratory Rate--Oxygen Saturation-- Inhaled Oxygen Concentration--Woobnh41.8 kg (176 lb)02/06/2023 11:36 AM EDT Mcmdya404.5 cm (5' 9.5 )02/06/2023 11:36 AM EDTBody Mass Index25.6206 11:36 AM EDT Plan of Treatment Health MaintenanceDue DateLast DoneCommentsCT Uhrrrpoarjrz1955Colonoscopy 5Colorectal Cancer Qmmyvsakl1955FIT-DNA (Cologuard)1955FIT 1955Lipid Panel07/17/19559312Zmgomvsetapcp1955Yearly Adult Physical 1955MMR Vaccines (1 of 1 - Standard series)1956Diabetes Screening 1973Hepatitis C Gaezmddsa61/23/1973DTaP/Tdap/Td Vaccines (1 - Tdap) 1977Pneumococcal Vaccine (1 of 1 - PCV)2005Zoster Vaccines (1 of 2) 2005COVID-19 Vaccine (1 - 2024- season)2025Influenza Vaccine (#1) 2025RSV High Risk: (Elderly (60+) or Population) (1 - 1-dose 75+ series)2030HIB VaccinesAged OutNo longer eligible based on patient's age to complete this topicHPV VaccinesAged OutNo longer eligible based on patient's age to complete this topicHepatitis A VaccinesAged OutNo longer eligible based on patient's age to complete this topicHepatitis B VaccinesAged OutNo longer eligible based on patient's age to complete this topicIPV VaccinesAged OutNo longer eligible based on patient's age to complete this topicMeningococcal VaccineAged OutNo longer eligible based on patient's age to complete this topic Rotavirus VaccinesAged OutNo longer eligible based on patient's age to complete this topic Care Teams Team MemberRelationshipSpecialtyStart DateEnd Date Rene Pandey MD [address] [place] [address] [facility]01/09/23
--- OUTSIDE RECORDS SUMMARY | 2025-08-20 07:21 | XMS_ITS | Clinical Summary ---
Author Organization [facility] Address [address] [facility], [address] [place] [address] Care Team Providers Care Protective Services Case Worker Name Role Phone Rene Pandey MD Primary Care Provider + [phone] Allergies No known active allergies Medications MedicationSigDispense QuantityRefillsLast FilledStart DateEnd DateStatus losartan (COZAAR) 100 MG tablet Take 1 tablet by mouth daily 90 tablet ctive dilTIAZem (DILTIAZEM CD) 240 MG extended release capsule Take 1 capsule by mouth daily 90 capsule ctive tamsulosin (FLOMAX) 0.4 MG capsule Take 1 capsule by mouth daily 90 capsule ctive famotidine (PEPCID) 20 MG tablet Take 1 tablet by mouth nightly 90 tablet ctive Calcium Carb-Cholecalciferol (CALCIUM+D3) 500-400 MG-UNIT TABS Take 1 tablet by mouth daily 90 tablet ctive metoprolol succinate (TOPROL XL) 100 MG extended release tablet Take 50 mg by mouth dailyActive sucralfate (CARAFATE) 1 GM tablet TAKE 1 TABLET BY MOUTH THREE TIMES A DAY FOR 30 DAYS11/21/2021ctive dicyclomine (BENTYL) 10 MG capsule TAKE 1 CAPSULE BY MOUTH EVERY EVENING 30 capsule ctive Family History Medical HistoryRelationNameCommentsOtherFatherMassive Heart AttackCancerSister RelationNameStatusCommentsFatherDeceasedMotherDeceasedSisterDeceased Social History Tobacco UseTypesPacks/DayYears UsedDateSmoking Tobacco: NeverSmokeless Tobacco: NeverAlcohol UseStandard Drinks/HrpfHckxopkdBlq12 (1 standard drink = 0.6 oz pure alcohol)Sex and Gender InformationValueDate RecordedSex Assigned at Not on fileLegal QobJjls8310/04/2021 10:47 AM ESTGender IdentityNot on fileSexual OrientationNot on file Last Filed Vital Signs Vital SignReadingTime TakenCommentsBlood Rcldjhzd126/7904 8:42 AM EDT Gxokq562812/04/2021 8:42 AM EDTTemperature--Respiratory Rate--Oxygen Xdbyzadpos16% 12/04/2021 8:42 AM EDTInhaled Oxygen Concentration--Vohsxg06.6 kg (191 lb) 12/04/2021 8:42 AM EDTHeight--Body Mass Index-- Plan of Treatment Not on file Insurance Care Teams Team MemberRelationshipSpecialtyStart DateEnd Rene Pandey MD PCP - General10/17/21
[2025-08-20 07:22] LABS: Alanine Aminotransferase 36 U/L (16-63); Albumin Globulin Ratio 0.9; Albumin Level 2.8 g/dL (3.4-5.0); Alkaline Phosphatase 213 U/L (46-116); Anion Gap 22.8; Aspartate Amino Transferase 56 U/L (15-37); Blood Urea Nitrogen 16.0 mg/dL (7.0-18.0); Calcium 7.6 mg/dL (8.5-10.1); Carbon Dioxide 14.6 mmol/L (21.0-32.0); Chloride 107 mmol/L (98-107); Estimated GFR (African America 50 (>=60 mL/min/1.73m^2); Estimated GFR (Non-African Ame 41 (>=60 mL/min/1.73m^2); Globulin 3.2 g/dL; Glucose 126 mg/dL (74-106); Lipase 101.0 U/L (16.0-77.0); Magnesium 1.8 mg/dL (1.8-2.4); Potassium 4.4 mmol/L (3.5-5.1); Sodium 140 mmol/L (136-145); Total Protein 6.0 g/dL (6.4-8.2)
--- OUTSIDE RECORDS SUMMARY | 2025-08-20 07:22 | XMS_ITS | CCD ---
Author Organization [facility] Care Team Providers Care Flexible Babysitter Name Role Phone DAVIS, DR LÓPEZ Admitting Unavailable HEMEYER, DR LÓPEZ Attending Unavailable HEMEYER, DR LÓPEZ Primary Care Unavailable HEMEYER, DR LÓPEZ Consulting Unavailable KATHRYN, DR DEBORAH Carl Consulting Unavailable KATHARINAESDOUGLAS COMBS Admitting Unavailable VIGESLAURYN, DOUGLAS Attending Unavailable DAVIS, DR LÓPEZ Primary Care Unavailable KATHRYN, DR DEBORAH Carl Consulting Unavailable DOUGLAS GUTIERREZ Consulting Unavailable DAVIS, DR LÓPEZ Admitting Unavailable HEMEYER, DR LÓPEZ Attending Unavailable HEMEYER, DR LÓPEZ Primary Care Unavailable HEMEYER, DR LÓPEZ Consulting Unavailable HEMEYER, DR LÓPEZ Admitting Unavailable HEMEYER, DR LÓPEZ Attending Unavailable HEMEYER, DR LÓPEZ Primary Care Unavailable HEMEYER, DR LÓPEZ Consulting Unavailable Hemeyer Rene ARNDT Primary Care Provider DOUGLAS GUTIERREZ Referring Unavailable RENE CANNON Primary Care Unavailable HEMESB, RENE Bynum Primary Care Unavailable [...] Provider Arnel Madsen Referring Unavailable Davis, Dr. López Lebron Primary Care Unava ilable Arnel Madsen Attending Unavailable Arnel Madsen Referring Unavailable Dr. Rene Cannon Primary Care Unava ilable Arnel Madsen Attending Unavailable Rene Cannon Unavailable Unavailable Unavailable Chantal Castellanos Unavailable MD Rene Cannon Primary Care Provider DO Kip Gutiérrez Emergency Provider [phone] MD Gela Eller Admit Provider MD Gela Eller Attending Provider MD Elsi Aziz Other Provider MD Nohemy Linder Other Provider Unavailable Primary Care Provider Unavailabl e Davis ARNDT, Rene Diana Primary Care Provider Nohemy Linder Unavailable DO Cali Patterson Admit Provider DO Cali Patterson Attending Provider [phone] MD Daniela Eber Other Provider DO Johnny Mendoza Attending Provider Rene Cannon MD Primary Care Provider Rene Cannon MD Primary Care Provider Rene Cannon MD Unavailable Rene Cannon MD Primary Care Provider [phone] Rene Cannon MD Primary Care Provider [phone] Marily Romero DO Emergency Provider [phone] Roselyn Leonard MD Unavailable Roselyn Leonard MD Unavailable Jean Madsen MD Unavailable Francisco HARTMAN.CIGARETTE CARTON SEALER, Itzel Unavailable [phone] JORDON LYMAN Admitting Unavailable BRENNA REAGAN Referring Unavailable RENE CANNON Primary Care Unavailab CLARICE Esqueda Attending Unavailable CLAUDIA ALONSO Consulting Unavailable GLORIA BUSH Attending Unavailable SUDHA SYED Referring Unavailable HEMEYER, [facility] Care Unavailab le HEMEYER, [facility] Primary Care Unavailab le ZRAIK, LEW Admitting Unavailable ZRAIK, LEW Attending Unavailable PRATIK WINTERS Consulting Unavailable Marily Romero Attending Unavailable Marily Romero Admitting Unavailable Hemeyer, Rene Bynum Primary Care Unavailable Rene Cannon MD Primary Care Provider [phone] Chapin Simon Attending Unavailable Chapin Simon Admitting Unavailable HEMEYER, RENE Bynum Attending Unavailable HEMESB, RENE Bynum Attending Unavailable HEMESB, RENE Bynum Attending Unavailable CHAPIN SIMON Attending Unavailable EPIFANIO MUSE Referring Unavailable HEMEYER, RENE Bynum Attending Unavailable HEMEYER, RENE Bynum Attending Unavailable Hemeyer Rene ARNDT Unavailable Rene Cannon MD Unavailable Roselyn Leonard MD Unavailable Jean Madsen MD Unavailable Rene Cannon MD Unavailable ABHYANKAR, ROSELYN Referring Unavailable HEMEYER, [facility] Care Unavailab le ABHYANKAR, ROSELYN Referring Unavailable HEMEYER, [facility] Unavailab le ABHYANKAR, ROSELYN Attending Unavailable ABHYANKAR, ROSELYN Referring Unavailable HEMEYER, [facility] Unavailab le ABHYANKAR, ROSELYN Referring Unavailable HEMEYER, [facility] Care Unavailab ITZEL Lee Attending Unavailable ABHYANKAR, ROSELYN Referring Unavailable HEMEYER, [facility] Care Unavailab le ABHYANKAR, ROSELYN Referring Unavailable HEMEYER, [facility] Unavailab le ABHYANKAR, ROSELYN Referring Unavailable HEMEYER, [facility] Unavailab le ABHYANKAR, ROSELYN Referring Unavailable HEMEYER, [facility] Unavailab le ABHYANKAR, ROSELYN Referring Unavailable HEMEYER, [facility] Unavailab le ABHYANKAR, ROSELYN Referring Unavailable HEMEYER, [facility] Unavailab le ABHYANKAR, ROSELYN Referring Unavailable HEMEYER, [facility] Unavailab le ABHYANKAR, ROSELYN Referring Unavailable HEMEYER, [facility] Unavailab le ABHYANKAR, ROSELYN Attending Unavailable ABHYANKAR, ROSELYN Referring Unavailable HEMEYER, [facility] Unavailab le ABHYANKAR, ROSELYN Referring Unavailable HEMEYER, [facility] Unavailab le JUN, RAHAT Referring Unavailable HEMEYER, [facility] Unavailab le JUN, RAHAT Referring Unavailable HEMEYER, [facility] Unavailab le ABHYANKAR, ROSELYN Referring Unavailable HEMEYER, [facility] Unavailab le ABHYANKAR, ROSELYN Referring Unavailable HEMEYER, [facility] Unavailab le ABHYANKAR, ROSELYN Referring Unavailable HEMEYER, [facility] Unavailab le ABHYANKAR, ROSELYN Referring Unavailable HEMEYER, [facility] Unavailab le ABHYANKAR, ROSELYN Referring Unavailable HEMEYER, [facility] Unavailab le ABHYANKAR, ROSELYN Referring Unavailable HEMEYER, [facility] Unavailab le ABHYANKAR, ROSELYN Referring Unavailable HEMEYER, [facility] Unavailab le ABHYANKAR, ROSELYN Referring Unavailable HEMEYER, [facility] Unavailab le ABHYANKAR, ROSELYN Referring Unavailable HEMEYER, [facility] Unavailab le ABHYANKAR, ROSELYN Referring Unavailable HEMEYER, [facility] Unavailab le ABHYANKAR, ROSELYN Attending Unavailable ABHYANKAR, ROSELYN Referring Unavailable HEMEYER, [facility] Unavailab le ABHYANKAR, ROSELYN Referring Unavailable HEMEYER, [facility] Unavailab le ABHYANKAR, ROSELYN Referring Unavailable HEMEYER, [facility] Unavailab le ABHYANKAR, ROSELYN Attending Unavailable ABHYANKAR, ROSELYN Referring Unavailable HEMEYER, [facility] Unavailab le ABHYANKAR, ROSELYN Referring Unavailable HEMEYER, [facility] Unavailab le ABHYANKAR, ROSELYN Referring Unavailable HEMEYER, [facility] Unavailab le ABHYANKAR, ROSELYN Attending Unavailable ABHYANKAR, ROSELYN Referring Unavailable HEMEYER, [facility] Unavailab le ABHYANKAR, ROSELYN Referring Unavailable HEMEYER, [facility] Unavailab le ABHYANKAR, ROSELYN Referring Unavailable HEMEYER, [facility] Unavailab le ABHYANKAR, ROSELYN Referring Unavailable HEMEYER, [facility] Unavailab le ABHYANKAR, ROSELYN Referring Unavailable HEMEYER, [facility] Unavailab RAHAT Mac Attending Unavailable ABHYANKAR, ROSELYN Referring Unavailable HEMEYER, [facility] Unavailab le ABHYANKAR, ROSELYN Referring Unavailable HEMEYER, [facility] Unavailab le HEMEYER, [facility] Unavailab BONNIE Cantu Referring Unavailabl e ABHYANKAR, ROSELYN Referring Unavailable HEMEYER, [facility] Unavailab le ABHYANKAR, ROSELYN Referring Unavailable HEMEYER, [facility] Unavailab le ABHYANKAR, ROSELYN Attending Unavailable ABHYANKAR, ROSELYN Referring Unavailable HEMEYER, [facility] Unavailab le ABHYANKAR, ROSELYN Referring Unavailable HEMEYER, [facility] Unavailab le ABHYANKAR, ROSELYN Referring Unavailable HEMEYER, [facility] Unavailab le ABHYANKAR, ROSELYN Referring Unavailable HEMEYER, [facility] Unavailab le ABHYANKAR, ROSELYN Referring Unavailable HEMEYER, [facility] Unavailab le ABHYANKAR, ROSELYN Referring Unavailable HEMEYER, [facility] Unavailab le ABHYANKAR, ROSELYN Referring Unavailable HEMEYER, [facility] Unavailab le ABHYANKAR, ROSELYN Referring Unavailable HEMEYER, [facility] Unavailab le HEMEYER, [facility] Unavailab le LASHELLDELKIP BESS Admitting Unavailable YUDELCHENTEICHKIP Attending Unavailable Medications Current Medications MedicationDrug Class(es)DatesSig (Normalized)Sig (Original)Calcium-Carb 600 + D 600-125 MG-UNIT (3 sources)take 1 tablet by mouth twice dailyCalcium-Carb 600 + D 600-125 MG- UNIT 1 tablet Orally Twice a day Activeferrous sulfate 325 mg oral tablet (19 sources)take 1 tablet by mouth once dailyferrous sulfate (IRON) 325 mg (65 mg iron) tablet Take 30 mg by mouth once daily. Activefinasteride 5 mg oral tablet (20 sources)5-alpha Reductase InhibitorStart: 05-25-2023 End: 84-22-7941wvruzfgwrxl (PROSCAR) 5 mg tablet Take 5 mg by mouth. 10/19/2024 02/10/2025 Discontinued (Side Effects)Start: 01-15-2023 End: 07-41-4095eibh 1 tablet by mouth once dailyfinasteride (Proscar) 5 MG tablet Indications: Benign prostatic hyperplasia with weak urinary stream Take 1 tablet (5 mg) by mouth Daily Do not crush, chew, or split. 90 tablet 3 10/19/2024 10/19/2025 ActiveComment on above:Take 5 mg by mouth every other day. losartan potassium 100 mg oral tablet (20 sources)Angiotensin 2 Receptor BlockerStart: 08-30-2024 End: 75-18-8200kgix 1 tablet by mouth once dailylosartan (Cozaar) 100 MG tablet Indications: Benign essential hypertension Take 1 tablet (100 mg) by mouth Daily 90 tablet 1 04/13/2025 10/10/2025 ActiveStart: 05-27-2024 End: 40-84-8833dysm 1 tablet by mouth once dailylosartan (Cozaar) 100 MG tablet Indications: Benign essential hypertension (CMS/HCC) Take 1 tablet (100 mg) by mouth Daily 90 tablet 05/27/2024 08/25/2024 ActiveStart: 04-27-2024 End: 47-49-2645udgu 1 tablet by mouth once dailylosartan (Cozaar) 50 MG tablet Indications: Benign essential hypertension (CMS/HCC) Take 1 tablet (50 mg) by mouth Daily 30 tablet 04/27/2024 05/27/2024 ActiveStart: 04-27-2024 End: 81-21-2527nsav 2 tablets by mouth once dailylosartan (Cozaar) 25 MG tablet Indications: Benign essential hypertension (CMS/HCC) Take 2 tablets (50 mg) by mouth Daily 60 tablet 04/27/2024 04/27/2024 Discontinued (Reorder)Start: 03-11-2024 End: 12-36-9157goae 1 tablet by mouth once dailylosartan (Cozaar) 25 MG tablet Indications: Benign essential hypertension (CMS/HCC) Take 1 tablet (25 mg) by mouth Daily 30 tablet 04/27/2024 04/27/2024 Discontinued (Reorder)Start: 10-23-2021 End: 57-10-2772nsoq 1 tablet by mouth once daily in the morningLosartan 100 mg tablet Discontinued 100 MG PO Every morning November 29, 2021 12:00am July 26, 2023 1:25pmComment on above:Take 100 mg by mouth every morning.MULTI- VITAMIN ORAL (3 sources)MULTI-VITAMIN ORAL Take by mouth. ActiveMULTIVITAMIN ORAL (20 sources)MULTIVITAMIN ORAL Take by mouth. SuspendedMULTIVITAMIN ORAL Take by mouth. ActiveMULTIVITAMIN ORAL Take by mouth. 0 ActiveComment on above:Take by mouth.ondansetron 4 mg disintegrating oral tablet (11 sources)Serotonin-3 Receptor AntagonistStart: 07-18-2023 End: 20-42-8347xabk 1 tablet by mouth every eight hours as needed for nausea ondansetron ODT (Zofran-ODT) 4 MG disintegrating tablet Take 4 mg by mouth every 8 (eight) hours ifneeded for nausea. 07/18/2023 04/27/2024 Discontinued (Therapy completed)Start: 07-10-2023 End: 14-70-5120gbpz 1 tablet by mouth every eight hours as needed for nausea ondansetron (ZOFRAN) 4 mg tablet TAKE 1 TABLET BY MOUTH EVERY 8 HOURS NEEDED FOR NAUSEA OR FOR VOMITING FOR UP TO 7 DAYS 07/10/2023 10/13/2023 Discontinued (Course of therapy completed)Comment on above:TAKE 1 TABLET BY MOUTH EVERY 8 HOURS NEEDED FOR NAUSEA OR FOR VOMITING FOR UP TO 7 DAYS Completed/Discontinued Medications MedicationDrug Class(es)DatesSig (Normalized)Sig (Original)amino acids 5% - electrolytes - calcium in D20W 5 % solp 2,000 mL (8 sources) End: 60-88-6163xexdv acids 5% - electrolytes - calcium in D20W 5 % solp 2,000 mL Inject intravenously every 12 hours. IV 0 12/09/2023 Discontinuedamino acids 5% - electrolytes - calcium in D20W 5 % solp 2,000 mL Inject intravenously every 12 hours. IV 0 ActiveComment on above:Inject intravenously every 12 hours. IV calcium carbonate 600 mg / cholecalciferol 125 unt oral tablet (7 sources)Vitamin DStart: 11-29-2021 End: 78-99-4184kcnx 1 tablet by mouth once dailyCalcium Carbonate-Vitamin D3 Discontinued 1 TAB PO Daily November 29, 2021 12:00am January 15, 2023 8:09amStart: 29-63-9428mnmq 1 tablet by mouth once dailyCalcium Carb-Cholecalciferol (CALCIUM+D3) 500-400 MG-UNIT TABS Take 1 tablet by mouth daily 90 tablet 1 10/23/2021 ActiveCalcium Carbonate / vitamin D3 (4 sources)Start: 11-29-2021 End: 15-37-1663rxau 1 tablet by mouth once dailyCalcium Carbonate-Vitamin D3 Discontinued 1 TAB PO Daily November 28, 2021 11:00pm January 15, 2023 7:09amCalcium Carbonate-Vitamin D3 600-125 mg-unit Tablet (1 source)Start: 11-29-2021 End: 29-84-4850gisw 1 tablet by mouth once dailyCalcium Carbonate-Vitamin D3 600-125 mg-unit Tablet Discontinued 1 TAB PO Daily November 29, 2021 12:00am January 15, 2023 8:09amdicyclomine hydrochloride 10 mg oral capsule (12 sources)AnticholinergicStart: 11-29-2021 End: 89-54-6591pkug 1 capsule by mouth once dailyDicyclomine 10 mg capsule Discontinued 10 MG PO Daily November 29, 2021 12:00am January 15, 2023 8:10amStart: 92-03-9500ndfe 1 capsule by mouth once daily in the eveningdicyclomine (BENTYL) 10 MG capsule Take 1 capsule by mouth every evening 360 capsule 1 10/24/2021 Ac tive24 hr dilTIAZem hydrochloride 180 mg extended release oral capsule (20 sources)Calcium Channel BlockerStart: 07-24-2023 End: 39-07-7732bxdh 1 capsule by mouth once dailyDiltiazem Hcl 180 mg capsule,extended release 24hr Discontinued 180 MG PO Daily July 24, 2023 1:00am July 26, 2023 1:25pmStart: 07-10-2023 End: 95-63-6613sdmCABOjv CD (CARDIZEM CD, CARTIA XT) 180 mg 24 hr capsule Take 240 mg by mouth every morning. 07/10/2023 10/13/2023 Discontinued (Course of therapy completed)Start: 10-23-2021 End: 37-92-1340orzq 1 capsule by mouth once daily in the morningDiltiazem Hcl 240 mg capsule,extended release 24hr Discontinued 240 MG PO Every morning November 29, 2021 12:00am July 24, 2023 6:37pmComment on above:Take 240 mg by mouth every morning.ertapenem (10 sources)Penem AntibacterialStart: 10-09-2023 End: 49-62-1512kkxdev 1 g intravenously every twenty-four hoursertapenem sodium (ERTAPENEM INJECTION) Ertapenem Active 1 GM IV Q24H October 09, 2023 12:00am 0 10/09/2023 12/09/2023 DiscontinuedStart: 79-96-0452mrvpvo 1 g intravenously every twenty-four hoursertapenem sodium (ERTAPENEM INJECTION) Ertapenem Active 1 GM IV Q24H October 09, 2023 12:00am 0 10/09/2023 ActiveStart: 30-74-6860ivfl 1 g intravenously every twenty-four hoursErtapenem 1 gram Recon Soln Active 1 GM IV Q24H October 09, 2023 1:00amComment on above:Ertapenem Active 1 GM IV Q24H October 09, 2023 12:00amfamotidine 20 mg oral tablet (17 sources)Histamine-2 Receptor AntagonistStart: 10-23-2021 End: 96-00-9543pfcvuoswsn (PEPCID) 20 mg tablet Take by mouth every 24 hours. 0 10/23/2021 12/09/2023 Discontinued(Discontinued by Patient)Start: 60-53-6928qiwe 1 tablet by mouth once dailyfamotidine (PEPCID) 20 MG tablet Take 1 tablet by mouth nightly 90 tablet 1 10/23/2021 ActiveComment on above:Take by mouth every 24 hours.hyoscyamine sulfate 0.125 mg sublingual tablet (12 sources)Start: 11-29-2021 End: 71-71-1182ouuw 1 tablet under the tongue twice dailyHyoscyamine Sulfate 0.125 mg tablet, sublingual Discontinued 0.125 MG SUBLINGUAL Twice daily November 292021 12:00am January 15, 2023 8:10amStart: 54-98-2708uwdh 1 tablet under the tongue at bedtimehyoscyamine (LEVSIN/SL) [address] 1 tablet under the tongue in the morning and at bedtime 60 tablet 6 10/24/2021 Activeiv contrast (will be provided with radiology test) (6 sources)Start: 03-24-2024 End: 98-10-4024bn contrast (will be provided with radiology test) 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 Discontinue saline lock post exam. If Pt. has a central line or IVAD,may access for administration according to line specific nursing protocol. Once exam is complete flush line and de-access according to line specific nursing protocol in the CT contrast administration guidelines link. 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 Discontinue saline lock post exam. If Pt. has a central line or IVAD, mayaccess for administration according to line specific nursing protocol. Once exam is complete flush line and de-access according to line specific nursing protocol in the CT contrast administration guidelines link. 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 Discontinue saline lock post exam. If Pt. has a central line or IVAD,may access for administration according to line specific nursing protocol. Once exam is complete flush line and de-access according to line specific nursing protocol in the CT contrast administration guidelines link. 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 Discontinue saline lock post exam. If Pt. has a central line or IVAD, mayaccess for administration according to line specific nursing protocol. Once exam is complete flush line and de-access according to line specific nursing protocol in the CT contrast administration guidelines link. 1 Each 0 03/24/2024 03/25/2024 ActiveStart: 01-28-2024 End: 38-70-4143ds contrast (will be provided with radiology test) [...] guidelines link. 1 Each 0 01/28/2024 01/29/2024 Cdrslo37 hr metoprolol succinate 100 mg extended release oral tablet (20 sources)beta-Adrenergic BlockerStart: 07-10-2023 End: 25-64-1415pbpy 50 mg by mouth oncemetoprolol succinate ER (TOPROL XL) 100 mg Take 50 mg by mouth one time only. 07/10/2023 10/13/2023iscontinued (Course of therapy completed)Start: 11-29-2021 End: 60-96-0158qaru 2 tablets by mouth once daily in the morningMetoprolol Succinate 100 mg tablet extended release 24 hr Discontinued 50 MG PO Every morning 2021 12:00am October 06, 2023 9:23pmStart: 11-29-2021 End: 71-31-8894wiuv 50 mg by mouth once daily in the morningMetoprolol Succinate Discontinued 50 MG PO Every morning November 28, 2021 11:00pm October 06, 2023 8:23pmtake 1 tablet by mouth once dailymetoprolol succinate ER (TOPROL XL) 50 mg 24 hr tablet Take 50 mg by mouth once daily. Activetake 0.5 tablet by mouth once dailyMetoprolol Succinate ER 100 MG 1/2 TABLET Orally Once a day Activetake 1 tablet by mouth once dailyToprol XL 100 MG Oral Tablet Extended Release 24 Hour Take 1 tablet by mouth daily Quantity: 0 Refills: 0 Ordered: 09-Jan-2023 DO Activemetoprolol succinate (TOPROL XL) 100 MG extended release tablet Take 50 mg by mouth daily 0 ActiveComment on above:Take 50 mg by mouth one time only. octreotide 20 mg injection (20 sources)Somatostatin AnalogStart: 04-21-2025 End: 32-42-3392ftusdg 1 dose by intramuscular injection once20 mg, INTRAMUSCULAR, ONCE, 1 dose, On Susan 04/21/25 at 1400, REFRIGERATE - PROTECT FROM LIGHTStart: 03-10-2025 End: 49-79-1408zelutr 1 dose by intramuscular injection once20 mg, INTRAMUSCULAR, ONCE, 1 dose, On Susan 03/10/25 at 1400, REFRIGERATE - PROTECT FROM LIGHTStart: 02-10-2025 End: 36-68-2671alzguh 1 dose by intramuscular injection once20 mg, INTRAMUSCULAR, ONCE, 1 dose, On Susan 02/10/25 at 1000, REFRIGERATE - PROTECT FROM LIGHTStart: 01-20-2025 End: 83-07-1328jcedvc 1 dose by intramuscular injection once20 mg, INTRAMUSCULAR, ONCE, 1 dose, On Susan 01/20/25 at 1000, REFRIGERATE - PROTECT FROM LIGHTStart: 12-30-2024 End: 40-47-6423jqezbj 1 dose by intramuscular injection once20 mg, INTRAMUSCULAR, ONCE, 1 dose, On Susan 12/30/24 at 1000, REFRIGERATE - PROTECT FROM LIGHTStart: 12-09-2024 End: 75-40-9032yotbks 1 dose by intramuscular injection once20 mg, INTRAMUSCULAR, ONCE, 1 dose, On Susan 12/09/24 at 1000, REFRIGERATE - PROTECT FROM LIGHTStart: 11-05-2024 End: 85-05-4549paujnv 1 dose by intramuscular injection once20 mg, INTRAMUSCULAR, ONCE, 1 dose, On Fri11/05/24 at 0830, REFRIGERATE - PROTECT FROM LIGHTStart: 10-15-2024 End: 14-37-5093kvcdux 1 dose by intramuscular injection once20 mg, INTRAMUSCULAR, ONCE, 1 dose, On Fri10/15/24 at 0830, REFRIGERATE - PROTECT FROM LIGHTStart: 09-24-2024 End: 80-31-2061xnrbit 1 dose by intramuscular injection once20 mg, INTRAMUSCULAR, ONCE, 1 dose, On Fri09/24/24 at 0830, REFRIGERATE - PROTECT FROM LIGHTStart: 68-23-4105dlvlgoxdcu (SandoSTATIN) 20 MG injection Inject 20 mg into the shoulder, thigh, or buttocks See administration instructions Take to provider office for and inject 20mg IM every 3 weeks as directe 09/20/2024 ActiveStart: 09-20-2024 End: 22-18-6058quzaefwugl LAR (SANDOSTATIN LAR DEPOT) 20 mg Depot INJ Indications: Malignant carcinoid tumor of the ileum (HCC) Take to provider office for and inject 20mg IM every 3 weeks as directed 1 Each 10/15/2024 12/09/2024 DiscontinuedStart: 09-03-2024 End: 47-85-3041eopxzf 1 dose by intramuscular injection once20 mg, INTRAMUSCULAR, ONCE, 1 dose, On Fri09/03/24 at 0830, REFRIGERATE - PROTECT FROM LIGHTStart: 08-13-2024 End: 63-74-8800rfffuo 1 dose by intramuscular injection once20 mg, INTRAMUSCULAR, ONCE, 1 dose, On Fri08/13/24 at 1430, REFRIGERATE - PROTECT FROM LIGHTStart: 06-17-2024 End: 28-31-7628yxhaak 1 dose by intramuscular injection once20 mg, INTRAMUSCULAR, ONCE, 1 dose, On Susan 06/17/24 at 0900, REFRIGERATE - PROTECT FROM LIGHTStart: 05-20-2024 End: 05-84-2665rqgbvr 1 dose by intramuscular injection once20 mg, INTRAMUSCULAR, ONCE, 1 dose, On Susan 05/20/24 at 0930, REFRIGERATE - PROTECT FROM LIGHTStart: 04-21-2024 End: 39-79-7465kalbdk 1 dose by intramuscular injection once20 mg, INTRAMUSCULAR, ONCE, 1 dose, On Fri04/21/24 at 0830, REFRIGERATE - PROTECT FROM LIGHTStart: 03-24-2024 End: 00-63-5124dieofowakn LAR 20 mg depot (monthly) injection (SandoSTATIN LAR) Start: 02-24-2024 End: 67-34-4036rtpmnodxzx LAR 20 mg depot (monthly) injection (SandoSTATIN LAR) Start: 01-28-2024 End: 26-88-2835tndyiyhawq LAR 20 mg depot (monthly) injection (SandoSTATIN LAR) Start: 12-31-2023 End: 56-97-1138tohvhsojtn LAR 20 mg depot (monthly) injection (SandoSTATIN LAR) pantoprazole 40 mg delayed release oral tablet (20 sources)Proton Pump InhibitorStart: 02-27-2025 End: 59-11-3770sfyc 1 tablet by mouth in the morningpantoprazole (ProtoNix) 40 MG EC tablet Take 40 mg by mouth in the morning. 02/27/2025 04/13/2025 Di scontinued (Med list cleanup)Start: 07-26-2023 End: 63-58-5830quwo 1 tablet by mouth once dailyPantoprazole (Protonix) 40 mg tablet,delayed release (DR/EC) Active 40 MG PO Daily July 1:00am Start: 25-37-7051rkcn 1 tablet by mouth every twenty-four hoursPantoprazole Sodium 40 MG 1 tablet Orally Once a day for 30 days Nov, ActiveComment on above:Take 1 tablet by mouth every afternoon.PEPTAMEN 1.5 0.068 gram- 1.5 kcal/mL (1 source)Start: 08-13-2023 End: 36-59-0174CHWNZTFC 1.5 0.068 gram- 1.5 kcal/mL Tube Feeding Formula Type: Peptamen 1.5 Goal Rate (mL/hr x hours): 60 ml hr x 24 = 1440 ml = 2160 kcal and 98 gm protein Water Flush Volume (mL x frequency: 150 ml q 4 Recommended Enteral Access: PEG with Jejunal Extension 1440 mL 30 08/13/2023 08/14/2023 Discontinued Comment on above:Tube Feeding Formula Type: Peptamen 1.5 Goal Rate (mL/hr x hours): 60 ml hr x 24 = 1440 ml = 2160 kcal and 98 gm protein Water Flush Volume (mL x frequency: 150 ml q 4 Recommended Enteral Access: PEGwith Jejunal ExtensionPotassium (6 sources) End: 84-76-3344wpidomwvc (POTASSIMIN ORAL) Take by mouth. 10/13/2023 Discontinued (Course of therapy completed) End: 77-47-9091gbapghweh (POTASSIMIN ORAL) Take by mouth. 0 10/13/2023 Discontinued (Course of therapy completed)potassium (POTASSIMIN ORAL) Take by mouth. 0 Activepotassium (POTASSIMIN ORAL) Take by mouth. 0 SuspendedComment on above:Take by mouth.potassium gluconate 2.5 meq oral tablet (16 sources)Start: 01-15-2023 End: 02-69-6866uxis 1 tablet by mouth once daily in the morningPotassium Gluconate 595 mg (99 mg) Tablet Discontinued 99 MG PO Every morning January 15, 2023 12:00am October 06, 2023 9:24pm End: 66-75-7121wgww 1 tablet by mouth once dailyPotassium Gluconate 595 mg (99 mg) tab Take 595 mg by mouth once daily. 0 02/10/2024 DiscontinuedComment on above:Take 595 mg by mouth once daily.sucralfate 1000 mg oral tablet (9 sources)Aluminum ComplexStart: 11-29-2021 End: 39-66-0439xcrt 1 tablet by mouth three times dailySucralfate 1 gram tablet Discontinued 1 GM PO Three times daily November 29, 2021 12:00am January 15, 2023 8:10amStart: 78-73-6054rrle 1 tablet by mouth every eight hoursSucralfate 1 GM 1 TABLET Orally THREE TIMES A DAY for 30 day(s) Oct, Activetamsulosin hydrochloride 0.4 mg oral capsule (20 sources)alpha-Adrenergic BlockerStart: 10-23-2021 End: 82-89-2602squw 1 capsule by mouth once daily in the morningTamsulosin 0.4 mg capsule Discontinued 0.4 MG PO Every morning November 29, 2021 12:00am October 06, 2023 9:24pmComment on above:Take 0.4 mg by mouth one time only.technetium sestamibi (CARDIOLITE) injection 10 millicurie (1 source)Start: 11-07-2021 End: 05-49-6235veowtsxkpb sestamibi (CARDIOLITE) injection 10 millicurie technetium sestamibi (CARDIOLITE) injection 30 millicurie (1 source)Start: 11-07-2021 End: 45-98-5278zwhrdkyauf sestamibi (CARDIOLITE) injection 30 millicurie Problems Active Problems Problem ClassificationProblemDateDocumented DateEpisodic/ChronicAcute and unspecified renal failure (14 sources)Acute renal failure syndrome; Translations: [Acute kidney failure, unspecified]Onset: 624663-14-1884QucqzmqvGgejrka on above:Problem List clean-up per request of Phys. 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]Onset: 102806-05-2597HbwnqmhBffzas of other GI organs; peritoneum (1 source)History of malignant neoplasm of small bowel; Translations: [Personal history of other malignant neoplasm of small intestine]06-98-8971KstdyaibEwbwzk of pancreas (5 sources)Malignant tumor of pancreas; Translations: [Malignant neoplasm of pancreas, unspecified]Onset: 060820-32-8746JfarmhpAfffbnt dysrhythmias (20 sources)Cardiac arrhythmia; Translations: [Cardiac arrhythmia, unspecified] Onset: 673300-47-4717PxxqflaXwncquei (20 sources)After-cataract of bilateral eyes; Translations: [Other secondary cataract, bilateral]Onset: 258045-41-8295IkmzdnfWlbfcgh kidney disease (20 sources)Chronic kidney disease stage 2; Translations: [Chronic kidney disease, stage 2 (mild)]Onset: 01-28-2023 Resolved: 109189-47-0376HcbaaamExctrmaanzpty of surgical procedures or medical care (5 sources)Complication of gastrostomy; Translations: [Gastrostomy infection] 23-74-1434NkwddjvyGcloodeljb and other anemia (2 sources)Iron deficiency anemia due to blood loss; Translations: [Iron deficiency anemia secondary to blood loss (chronic)]97-76-3707KgkbfosQtaqjmnetl and other anemia (1 source)Iron deficiency anemia secondary to blood loss (chronic); Translations: [Iron deficiency anemia dueto chronic blood loss]Onset: 02-25-2025 ChronicDeficiency and other anemia (1 source)Nutritional anemia; Translations: [Other vitamin B12 deficiency anemias]01-89-5069YrdfafrpTubvctdsl congenital anomalies (20 sources)Esophageal diverticulum; Translations: [Congenital diverticulum of esophagus]Onset: 092227-92-3336XaxbdqeEfqldcds of white blood cells (5 sources)Leukocytosis; Translations: [Elevated white blood cell count, unspecified]82-61-8138FovoupdWythcfvyj of lipid metabolism (20 sources)Hyperlipidemia; Translations: [Hyperlipidemia, unspecified]Onset: 01-28-2023 Resolved: 630467-64-9508VlhcgwyAjaxaftegz disorders (20 sources)Gastroesophageal reflux disease; Translations: [Gastro-esophageal reflux disease without esophagitis]Onset: 11-21-2021 Resolved: 03-34-6114IitfjwjOysyjfk on above:Problem List clean-up per request of Phys. EHR CmteEssential hypertension (20 sources)Hypertensive disorder; Translations: [Unspecified essential hypertension]Onset: 01-28-2023 Resolved: 254316-55-1683JoyuxjmJiaoiqzkd and duodenitis (7 sources)Gastritis; Translations: [Gastritis, unspecified, without bleeding] Onset: 11-21-2021 Resolved: 24-54-3578AoddaptzUgupm valve disorders (20 sources)Nonrheumatic mitral (valve) insufficiency; Translations: [Mitral valve disorders]Onset: 01-28-2023 Resolved: 367201-54-6894EmuwcqfNfwrkwvnxow of prostate (20 sources)Benign prostatic hyperplasia; Translations: [Benign prostatic hyperplasia without lower urinary tract symptoms]Onset: 10-18-2020 Resolved: 901172-36-7257BwsvebpBgzkdam on above:Problem List clean-up per request of Phys. EHR CmteHypertension with complications and secondary hypertension (20 sources)Hypertensive renal disease; Translations: [Hypertensive chronic kidney disease with stage 1 throughstage 4 chronic kidney disease, or unspecified chronic kidney disease]Onset: 872176-19-5265Fggkjik Inflammation; infection of eye (except that caused by tuberculosis or sexually transmitteddisease) (20 sources)Blepharitis of upper and lower eyelids of bilateral eyes; Translations: [Unspecified blepharitis right eye, upper and lower eyelids]Onset: 918761-31-8691UijvacywZrzrsrublnams (1 source)Retroperitoneal lymphadenopathy ; Translations: [Localized enlarged lymph nodes]03-71-1321AayckdjpVeqvxmsuejl chemotherapy; radiotherapy (2 sources)Encounter for antineoplastic chemotherapy; Translations: [Encounter for antineoplastic immunotherapy]Onset: 08-29-7015CghauocWciaakwhi neoplasm without specification of site (20 sources)Primary malignant neuroendocrine neoplasm of ileum; Translations: [Other malignant neuroendocrine tumors]Onset: 612562-20-1641Zvvcgbd Nonspecific chest pain (2 sources)Chest pain; Translations: [Chest pain, unspecified]Episodic Nutritional deficiencies (20 sources)Deficiency of macronutrients; Translations: [Unspecified severe protein-calorie malnutrition]Onset: 01-28-2023 Resolved: 316367-08-9484JbwjkoxRvob wounds of head; neck; and trunk (1 source)Laceration without foreign body of nose, initial encounterEpisodic Osteoarthritis (20 sources)Primary gonarthrosis, bilateral; Translations: [Bilateral primary osteoarthritis of knee]Onset: 403597-25-0909NmtwdtiSvaza aftercare (1 source)Encounter for removal of suturesEpisodicOther circulatory disease (1 source)Bruit; Translations: [Other specified symptoms and signs involving the circulatory and respiratory systems]EpisodicOther circulatory disease (8 sources)Low blood pressure; Translations: [Hypotension, unspecified] 40-22-7115OqqdehnuHxetfce on above:Problem List clean-up per request of Phys. EHR CmteOther circulatory disease (4 sources)Hypotension, unspecified; Translations: [Hypotension, unspecified] 05-24-6166RrcpjowoMppkr diseases of veins and lymphatics (2 sources)Gastric varices; Translations: [Gastric varices]Onset: 02-26-2025 EpisodicOther disorders of stomach and duodenum (3 sources)Other diseases of stomach and duodenum; Translations: [Other specified disorders of stomach and duodenum]05-79-9514StafmtlvOacyf disorders of stomach and duodenum (1 source)Gastroparesis; Translations: [Gastroparesis]Onset: 01-23-5729Fcgmwhnf Other endocrine disorders (1 source)Carcinoid syndrome; Translations: [Carcinoid syndrome (HCC)]Onset: 65-69-1349GraqxfdNaewd eye disorders (20 sources)Dry eyes; Translations: [Dry eye syndrome of bilateral lacrimal glands]Onset: 507033-26-5231HlteefnkWluya gastrointestinal disorders (5 sources)Mass of digestive structure; Translations: [Other specified diseases of intestine]29-02-0356OobzavxpMsyberi on above:Problem List clean-up per request of Phys. EHR CmteOther gastrointestinal disorders (2 sources)Other specified diseases of intestine; Translations: [Other specified disorders of intestine]22-60-4419HmpwsijsQmptk gastrointestinal disorders (2 sources)Functional diarrhea; Translations: [Functional diarrhea]03-16-2025 EpisodicOther gastrointestinal disorders (1 source)Functional diarrhea; Translations: [Functional diarrhea]Onset: 57-17-4041LrdnuirgEvruw inflammatory condition of skin (20 sources)Psoriasis; Translations: [Psoriasis, unspecified]Onset: 01-28-2023 60-27-7676QvywjsxQvphs injuries and conditions due to external causes (1 source)Soft tissue injury; Translations: [Injury, unspecified, initial encounter]24-11-6584CplytvnjPiosb lower respiratory disease (5 sources)Shortness of breath; Translations: [SHORTNESS OF BREATH]Onset: 95-95-9667TejbxntsPppik lower respiratory disease (10 sources)Lung mass; Translations: [Other nonspecific abnormal finding of lung field]64-45-3840SjedtmctHkhdk nutritional; endocrine; and metabolic disorders (1 source)Overweight in adulthood with body mass index of 25 or more but less than 30; Translations: [Overweight]EpisodicOther nutritional; endocrine; and metabolic disorders (5 sources)Unintentional weight loss; Translations: [Abnormal weight loss] 94-57-3343RmpvegdoHlpjsoa on above:Problem List clean-up per request of Phys. EHR CmteOther nutritional; endocrine; and metabolic disorders (2 sources)Abnormal weight loss; Translations: [Loss of weight]07-24-2023 EpisodicOther screening for suspected conditions (not mental disorders or infectious disease) (3 sources)Cardiovascular stress test abnormal; Translations: [Other nonspecific abnormal results of function study of cardiovascular system]49-60-5187Iquanjub Comment on above:mild;Pneumonia (except that caused by tuberculosis or sexually transmitted disease) (4 sources)Pneumonia, unspecified organism; Translations: [PNEUMONIA UNSPECIFIED ORGANISM]Onset: 60-71-7639PrgkcyfjPrsmfbun codes; unclassified (2 sources)Other specified health status; Translations: [Other specified conditions influencing health status]05-68-2376XfsnlrdiOcfoania codes; unclassified (2 sources)Active advance directive (copy within chart) ; Translations: [Other specified health status]13-10-3224MksigxmyCqlpxdbt codes; unclassified (2 sources)Cardiovascular event risk; Translations: [Other specified personal risk factors, not elsewhere classified]49-43-0123CsdcwmeqOoaxzvwql malignancies (3 sources)Secondary malignant neoplasm of lymph deev68-33-2100Xpbyhwv Unclassified (1 source)Long-term (current) use of injectable non-insulin antidiabetic drugs; Translations: [Long-term (current) use of injectable non-insulin antidiabetic drugs]Onset: 10-17-6794Xqvsmqmgcwtr (1 source)Radiology NMOnset: 86-61-3742[place]lyuk infection (1 source)COVID-19; Translations: [COVID-19]Onset: 09-13-2021 Past or Other Problems Problem ClassificationProblemDateDocumented DateEpisodic/ChronicAbdominal pain (10 sources)Unspecified abdominal pain; Translations: [Epigastric pain]Onset: 11-21-2021 Resolved: 42-44-0723FppedfekBfmuyme on above:Problem List clean-up per request of Phys. EHR CmteAcute posthemorrhagic anemia (20 sources)Acute posthemorrhagic anemia; Translations: [Acute posthemorrhagic anemia]Onset: 10-31-2024 Resolved: 080854-63-0366PbfhimzpFzxnsvflbz associated with dizziness or vertigo (1 source)Dizziness and giddiness; Translations: [Lightheadedness]Onset: 16-25-2023PwmnncnqMgaedejtty and other anemia (20 sources)Anemia; Translations: [Anemia, unspecified]Onset: 10-31-2024 19-59-8848DigaupipOqmslpzglu and other anemia (20 sources)Iron deficiency anemia; Translations: [Iron deficiency anemia, unspecified]Onset: 360914-29-9648SozovtvpFygqhvclmh and other anemia (1 source)Iron deficiency anemia, unspecified; Translations: [Iron deficiency anemia, unspecified iron deficiency anemia type]Onset: 45-96-2172Rczenoiw Deficiency and other anemia (1 source)Anemia, unspecified; Translations: [Anemia, unspecified type]Onset: 08-39-6382TlzgftkhRdpersde; convulsions (20 sources)Seizure; Translations: [Unspecified convulsions]Onset: 08-16-2023 85-00-8244SjccroqbYpqcj and electrolyte disorders (20 sources)Dehydration; Translations: [Hypokalemia]Onset: 09-07-2021 Resolved: 97-33-8104GngjewkoPcvjoqr on above:Problem List clean-up per request of Phys. EHR CmteGastrointestinal hemorrhage (20 sources)Gastrointestinal hemorrhage; Translations: [Gastrointestinal hemorrhage, unspecified]Onset: 10-31-2024 Resolved: 357310-02-6112BmbjpfvgJulckdtwdmgdq symptoms and ill-defined conditions (20 sources)Microalbuminuria; Translations: [Proteinuria, unspecified]Onset: 630858-97-7084JqphnyxaVaqbo valve disorders (20 sources)Heart murmur; Translations: [Cardiac murmur, unspecified]Onset: 580347-68-9582VmygvshiEuyixic and fatigue (20 sources)Asthenia; Translations: [Weakness]Onset: 08-15-2023 Resolved: 681365-01-7412SxzrgcaaHvar disorders (19 sources)Mood disordersOnset: Other aftercare (20 sources)Patient encounter status; Translations: [Encounter for therapeutic drug level monitoring]Onset: 08-08-2023 Resolved: 070799-53-9122SlnfgzwmGxgbw and unspecified benign neoplasm (20 sources)Other benign neuroendocrine tumors; Translations: [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]Onset: 606928-56-2858UrjlpxioAwcdd bone disease and musculoskeletal deformities (5 sources)Disorder of bone, unspecified; Translations: [Disorder of bone and cartilage, unspecified]Onset: 263057-69-3433ChipmylmWrgvr diseases of veins and lymphatics (20 sources)Venous insufficiency of leg; Translations: [Venous insufficiency (chronic) (peripheral)]Onset: 733622-98-5424ZtvkkwfwQlavy diseases of veins and lymphatics (20 sources)Gastric varices; Translations: [Gastric varices]Onset: 02-26-2025 85-04-1270WdvdzozwCybje disorders of stomach and duodenum (20 sources)Mass of duodenum; Translations: [Other diseases of stomach and duodenum]Onset: 07-30-2023 Resolved: 166873-50-0589BbkaaoltLzqks disorders of stomach and duodenum (20 sources)Pyloric obstruction; 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]Onset: 592994-02-8458AeuhakdkRdhyg gastrointestinal disorders (20 sources)Patient encounter status; Translations: [Encounter for attention to gastrostomy]Onset: 10-03-2023 Resolved: 443482-40-9182IjqaocyEzjly gastrointestinal disorders (1 source)Diarrhea, unspecified; Translations: [Bloody diarrhea]Onset: 41-40-7382EfculezgFlbsr lower respiratory disease (1 source)Dyspnea on exertion; Translations: [Shortness of breath] Resolved: 40-97-3763VvnbaojlVorxx lower respiratory disease (1 source)Other nonspecific abnormal finding of lung field; Translations: [Lung mass]Onset: 67-43-2868UigxhmpbUsvfb nervous system disorders (20 sources)Postoperative pain ; Translations: [Other acute postprocedural pain] Onset: 10-30-2023 Resolved: 387113-66-9222EzaxwrqsGkgvu nutritional; endocrine; and metabolic disorders (20 sources)Adult failure to thrive syndrome; Translations: [Adult failure to thrive]Onset: 08-07-2023 Resolved: 026374-99-3326RkxbuybdCxvts nutritional; endocrine; and metabolic disorders (20 sources)Feeding problem; Translations: [Feeding difficulties]Onset: 08-08-2023 Resolved: 347122-09-0815LiwvcwxgZzyfp nutritional; endocrine; and metabolic disorders (20 sources)Overweight; Translations: [Overweight]Onset: 656852-54-6129 EpisodicResidual codes; unclassified (20 sources)Current drinker; Translations: [Chronic alcohol use]Onset: 486934-78-2987RhsjtyajDnzshxg (20 sources)Syncope and collapse; Translations: [Syncope]Onset: 09-12-2021 Resolved: 80-79-4278FyabhmjqQmjiodsrcqkn (1 source)Never smoked tobacco; Translations: [Never a smoker]Unclassified (2 sources)Bone sozlex13-10-2992Gvcowjwz veins of lower extremity (20 sources)Varicose veins of lower extremity; Translations: [Asymptomatic varicose veins of bilateral lower extremities]Onset: Episodic Results Test NameValueInterpretationReference RangeFacilityCBC W Auto Differential panel (Bld)on 57-33-1562Esldvmuex (Bld) [#/Vol]0.05 10*3/uLNormal<0.11CM[facility] on above:Order Comment: Specimen Type: BLOOD SPECIMENOrdering Facility: [facility] Address:[address] [place], [place] [address]Performed By: #### 12042-0 ####[facility] LABCLIA [id number] [place], [place] [address]Qktuldovg/100 WBC (Bld)1.0 % NormalProMedica Memorial Hospital on above:Order Comment: Specimen Type: BLOOD SPECIMENOrdering Facility: [facility] Address:[address] [place], [place] [address]Performed By: #### 53977-1 ####[facility] LABCLIA [id number] [place] [address] Differential cell count method Nom (Bld)AutoNormalClevelECU Health [facility] Comment on above:Order Comment: Specimen Type: BLOOD SPECIMENOrdering Facility: [facility] Address:[address] [place] [address] Performed By: #### 48439-6 ####[facility] LABCLIA [id number] [place], [place] [address]Rcivldycpgs (Bld) [#/Vol]0.20 10*3/uLNormal<0.46[facility] on above:Order Comment: Specimen Type: BLOOD SPECIMENOrdering Facility: [facility] Address:[address] [place], [place] [address]Performed By: #### 13463-9 ####[facility] LABCLIA [id number] [place], [place] [address]Otzsiwbdcxy/100 WBC (Bld)4.1 %NormalProMedica Memorial Hospital on above:Order Comment: Specimen Type: BLOOD SPECIMENOrdering Facility: [facility] Address:[address] [place], [place] [address]Performed By: #### 18011-0 ####[facility] LABCLIA [id number] [place], [place] [address]Kshvuedqqws distribution width (RBC) [Ratio]14.9 %Aobpna56.5-15.0[facility] on above: Order Comment: Specimen Type: BLOOD SPECIMENOrdering Facility: [facility] Address:[address] [place], [place] [address]Performed By: #### 32988- 8 ####[facility] LABCLIA [id number] [place], [place] [address]Buiaugbbcw (Bld) [Volume fraction]34.7 %Low39.0-51.0 [facility] on above:Order Comment: Specimen Type: BLOOD SPECIMENOrdering Facility: [facility] Address:[address] [place], [place] [address]Performed By: #### 41784-1 ####[facility] LABCLIA [id number] [place], [place] [address]Gjrieryzui (Bld) [Mass/Vol]11.4 g/dLLow13.0-17.0[facility] on above:Order Comment: Specimen Type: BLOOD SPECIMENOrdering Facility: [facility] Address:[address] [place], [place] [address]Performed By: #### 19058- 8 ####[facility] LABCLIA [id number] [place], [place] [address]Snyhvxfw granulocytes (Bld) [#/Vol]10*3/uLNormal<0.10 [facility] on above:Order Comment: Specimen Type: BLOOD SPECIMENOrdering Facility: [facility] Address:[address] [place], [place] [address]Performed By: #### 14214-7 ####[facility] LABIA [id number] [place], [place] [address]Raxydaoq granulocytes/100 WBC (Bld)0.4 %NormalProMedica Memorial Hospital on above: Order Comment: Specimen Type: BLOOD SPECIMENOrdering Facility: [facility] Address:[address] [place], [place] [address]Performed By: #### 68797- 8 ####[facility] LABCLIA [id number] [place], [place] [address]Oftphnbqtjf (Bld) [#/Vol]0.49 10*3/uLLow1.00-4.00 [facility] on above:Order Comment: Specimen Type: BLOOD SPECIMENOrdering Facility: [facility] Address:[address] [place], [place] [address]Performed By: #### 49772-4 ####[facility] LABCLIA [id number] [place], [place] [address]Rsgexzenonp/100 WBC (Bld)10.1 %NormalProMedica Memorial Hospital on above:Order Comment: Specimen Type: BLOOD SPECIMENOrdering Facility: [facility] Address:[address] [place], [place] [address]Performed By: #### 02484-5 ####[facility] LABIA [id number] [place], [place] [address]OCS (RBC) [Entitic mass]30.0 haYtjdqu37.0-34.0[facility] on above:Order Comment: Specimen Type: BLOOD SPECIMENOrdering Facility: [facility] Address:[address] [place], [place] [address]Performed By: #### 20777-3 ####[facility] LABCLIA [id number] [place], [place] [address]YMSY (RBC) [Mass/Vol]32.9 g/dVCpwdex10.5-36.0[facility] on above: Order Comment: Specimen Type: BLOOD SPECIMENOrdering Facility: [facility] Address:[address] [place], [place] [address]Performed By: #### 07395- 8 ####[facility] LABIA [id number] [place], [place] [address]KHS (RBC) [Entitic vol]91.3 nJEnwyfu61.0-100.0[facility] on above:Order Comment: Specimen Type: BLOOD SPECIMENOrdering Facility: [facility] Address:[address] [place], [place] [address]Performed By: #### 41889-1 ####[facility] LABCLIA [id number] [place], [place] [address]Fpoclulap (Bld) [#/Vol]0.81 10*3/uLNormal<0.87[facility] on above:Order Comment: Specimen Type: BLOOD SPECIMENOrdering Facility: [facility] Address:[address] [place], [place] [address]Performed By: #### 72363- 8 ####[facility] LABCLIA [id number] [place], [place] [address]Oxfjymxjt/100 WBC (Bld)16.6 %NormalProMedica Memorial Hospital on above:Order Comment: Specimen Type: BLOOD SPECIMENOrdering Facility: [facility] Address:[address] [place], [place] [address]Performed By: #### 06378-0 ####[facility] LABCLIA [id number] [place], [place] [address]Mdbxmsokdgs (Bld) [#/Vol]3.30 10*3/uLNormal1.45-7.50[facility] on above:Order Comment: Specimen Type: BLOOD SPECIMENOrdering Facility: [facility] Address:[address] [place], [place] [address]Performed By: #### 06358-1 ####[facility] LABCLIA [id number] [place], [place] [address]Yoxfvzeqjct/100 WBC (Bld)67.8 %NormalProMedica Memorial Hospital on above:Order Comment: Specimen Type: BLOOD SPECIMENOrdering Facility: [facility] Address:[address] [place], [place] [address]Performed By: #### 05249-2 ####[facility] LABCLIA [id number] [place], [place] [address]Jjuivuncd RBC (Bld) [#/Vol] 10*3/uLNormal<0.01[facility] on above:Order Comment: Specimen Type: BLOOD SPECIMENOrdering Facility: [facility] Address:[address] [place], [place] [address]Performed By: #### 50696-8 ####[facility] LABCLIA [id number] [place], [place] [address]Btvljxagh RBC/100 WBC (Bld) [Ratio]0.0 /100 WBCNormal [facility] on above:Order Comment: Specimen Type: BLOOD SPECIMENOrdering Facility: [facility] Address:[address] [place], [place] [address]Performed By: #### 25561-6 ####[facility] LABIA [id number] [place], [place] [address]Wcylnbwh mean volume (Bld) [Entitic vol]10.2 fLNormal9.0-12.7CM[facility] on above:Order Comment: Specimen Type: BLOOD SPECIMENOrdering Facility: [facility] Address:[address] [place] [address] Performed By: #### 85836-1 ####[facility] LABIA [id number] [place], [place] [address]Dbjhakifw (Bld) [#/Vol]189 10*3/sBMwgjim711-137WzfbyjualProMedica Memorial Hospital on above:Order Comment: Specimen Type: BLOOD SPECIMENOrdering Facility: [facility] Address:[address] [place] [address]Performed By: #### 01125-3 ####[facility] LABCLIA [id number] [place], [place] [address]IQZ (Bld) [#/Vol]3.80 10*6/uLLow4.20-6.00[facility] on above:Order Comment: Specimen Type: BLOOD SPECIMENOrdering Facility: [facility] Address:[address] [place], [place] [address]Performed By: #### 62379-4 ####[facility] LABCLIA [id number] [place], [place] [address]MKV (Bld) [#/Vol]4.87 10*3/uL Normal3.70-11.00[facility] on above:Order Comment: Specimen Type: BLOOD SPECIMENOrdering Facility: [facility] Address:[address] [place], [place] [address]Performed By: #### 73153-3 ####[facility] LABCLIA [id number] [place], [place] [address]Pztzxtasdlpxs metabolic 2000 panelon 11-45-6517Slfmshp [Mass/Vol]3.8 g/dLLow3.9-4.9[facility] on above:Order Comment: Specimen Type: BLOOD SPECIMENOrdering Facility: [facility] Address:[address] [place], [place] [address]Performed By: #### 66110- 8 ####[facility] LABCLIA [id number] [facility] [place], [place] [address]TSR [Catalytic activity/Vol]217 U/STgno40-360BunixbepvProMedica Memorial Hospital on above:Order Comment: Specimen Type: BLOOD SPECIMENOrdering Facility: [facility] Address:[address] [place], [place] [address]Performed By: #### 82689-8 ####[facility] LABCLIA [id number] [place], [place] [address]VIZ [Catalytic activity/Vol]23 U/JFhgiqb03-31QqmbbjwfwProMedica Memorial Hospital on above:Order Comment: Specimen Type: BLOOD SPECIMENOrdering Facility: [facility] Address:[address] [place], [place] [address]Performed By: #### 74038- 8 ####[facility] LABCLIA [id number] [facility]ELES BEASLEYHON[facility] [place] [address]Bvysd gap [Moles/Vol]11 mmol/LNormal8-15[facility] on above:Order Comment: Specimen Type: BLOOD SPECIMENOrdering Facility: [facility] Address:[address] [place], [place] [address]Performed By: #### 04255-1 ####[facility] LABCLIA [id number] [facility] [place], [place] [address]HBM [Catalytic activity/Vol]44 U/HXgcy79-27RpooukljjProMedica [facility] Hospital on above:Order Comment: Specimen Type: BLOOD SPECIMENOrdering Facility: [facility] Address:[address] [place], [place] [address]Performed By: #### 07442-8 ####[facility] LABCLIA [id number] [facility] [place] [address] Bilirubin [Mass/Vol]0.7 mg/dLNormal0.2-1.3[facility] on above:Order Comment: Specimen Type: BLOOD SPECIMENOrdering Facility: [facility] Address:[address] [place], [place] [address]Performed By: #### 09404-3 ####[facility] LABCLIA [id number] [facility] ANGELESMARCO [facility]ON[facility] CENTERTRACIM[place], [place] [address]Yxvxntm [Mass/Vol]8.9 mg/dLNormal8.5-10.2[facility] on above:Order Comment: Specimen Type: BLOOD SPECIMENOrdering Facility: [facility] Address:[address] [place], [place] [address]Performed By: #### 20417-1 ####[facility] LABCLIA [id number] MEGAN ANGELESMARCO [facility] CENTERTRACIMONTG[place], [place] [address]Gnowpads [Moles/Vol]106 mmol/MSlfanl15-791BtlzrdrraProMedica Memorial Hospital on above: Order Comment: Specimen Type: BLOOD SPECIMENOrdering Facility: [facility] Address:[address] [place] [address]Rnxtapxck By: #### 94680- 8 ####[facility] LABCLIA [id number] [place], [place] [address]DD1 [Moles/Vol]23 mmol/USagwxw16-65RnmjxovpgProMedica Memorial Hospital on above:Order Comment: Specimen Type: BLOOD SPECIMENOrdering Facility: [facility] Address:[address] [place] [address]Tfsqopard By: #### 43198-2 ####[facility] LABCLIA [id number] [place], [place] [address]Cwkdghnlsw [Mass/Vol]1.00 mg/dL Normal0.73-1.22[facility] on above:Order Comment: Specimen Type: BLOOD SPECIMENOrdering Facility: [facility] Address:[address] [place], [place] [address]Performed By: #### 60397-4 ####[facility] LABCLIA [id number] [place], [place] [address]jCBIxp SerPlBld CKD-EPI 580068 mL/min/1.73m???Normal>=60 [facility] on above:Order Comment: Specimen Type: BLOOD SPECIMENOrdering Facility: [facility] Address:[address] [place] [address]Stqdne Comment: Estimated Glomerular Filtration Rate (eGFR) is calculated using the 2020 CKD-EPI creatinine equation. This equation utilizes serum creatinine, sex, and age as parameters. The creatinine assay has traceable calibration to isotope dilution-mass spectrometry. Refer to KDIGO guidelines for clinical interpretation. In patients with unstable renal function, e.g. those with acute kidney injury, the eGFR may not accurately reflect actual GFR.Performed By: #### 72454-7 ####[facility] LABCLIA [id number] [place], [place] [address]Ylgmkbq [Mass/Vol]142 mg/nQUatx24-03Nbqqzhbsx Clinic ClevelandComment on above:Order Comment: Specimen Type: BLOOD SPECIMENOrdering Facility: [facility] Address:[address] [place], [place] [address]Result Comment: The [place] Diabetes Association (ADA) provides guidance for cutoff values for fast ing glucose and random glucose. The ADA defines fasting as no caloric intake for at least 8 hours. Fasting plasma glucose results between 100 to 125 mg/dL indicate increased risk for diabetes (prediabetes).Fasting plasma glucose results greater than or equal to 126 mg/dL meet the criteria for diagnosis of diabetes. In the absence of unequivocal hyperglycemia, results should be confirmed by repeattesting. In a patient with classic symptoms of hyperglycemia or hyperglycemic crisis, random plasmaglucose results greater than or equal to 200 mg/dL meet the criteria for diagnosis of diabetes.Reference: Standards of Medical Care in Diabetes 2016, [place] [employer]. Diabetes Care. 2016.39(Suppl 1).Performed By: #### 57954-6 ####[facility] LABCLIA [id number] [place], [place] [address]Vibyvxyng [Moles/Vol]4.1 mmol/LNormal3.7-5.1[facility] on above: Order Comment: Specimen Type: BLOOD SPECIMENOrdering Facility: [facility] Address:[address] [place], [place] [address]Performed By: #### 57472- 8 ####[facility] LABCLIA [id number] [place], [place] [address]Ggizdsw [Mass/Vol]6.3 g/dLNormal6.3-8.0[facility] on above:Order Comment: Specimen Type: BLOOD SPECIMENOrdering Facility: [facility] Address:[address] [place], [place] [address]Performed By: #### 18118-3 ####[facility] LABCLIA [id number] [place], [place] [address]Tysvya [Moles/Vol]140 mmol/L Fnoytm948-547HvnlgsbhqProMedica Memorial Hospital on above:Order Comment: Specimen Type: BLOOD SPECIMENOrdering Facility: [facility] Address:[address] [place], [place] [address]Performed By: #### 24082-2 ####[facility] LABCLIA [id number] [place] [address] Urea nitrogen [Mass/Vol]12 mg/dLNormal-[facility] on above:Order Comment: Specimen Type: BLOOD SPECIMENOrdering Facility: [facility] Address:[address] [place], [place] [address]Performed By: #### 23499-2 ####[facility] LABCLIA [id number] [place], [place] [address]EUIDen 13-28-6303UCWICaeftaVenuwrfws Clinic ClevelandCBC W Auto Differential panel (Bld)on 22-30-7917Svxnprppj (Bld) [#/Vol] 0.04 10*3/uLNormal<0.11[facility] on above:Order Comment: Specimen Type: BLOOD SPECIMENOrdering Facility: [facility] Address:[address] [place], [place] [address]Performed By: #### 10327-0 ####[facility] LABCLIA [id number] [place], [place] [address]Cxykthwby/100 WBC (Bld)1.0 %NormalProMedica Memorial Hospital on above:Order Comment: Specimen Type: BLOOD SPECIMENOrdering Facility: [facility] Address:[address] [place], [place] [address]Performed By: #### 15962-4 ####[facility] LABCLIA [id number] [place], [place] [address]Gnaezumunrpz cell count method Nom (Bld)AutoNormalCMary [facility] Hospital on above:Order Comment: Specimen Type: BLOOD SPECIMENOrdering Facility: [facility] Address:[address] [place], [place] [address]Performed By: #### 22711-1 ####[facility] LABCLIA [id number] [place], [place] [address]Dqzztvolmcw (Bld) [#/Vol]0.23 10*3/uLNormal<0.46[facility] on above:Order Comment: Specimen Type: BLOOD SPECIMENOrdering Facility: [facility] Address:[address] [place], [place] [address]Performed By: #### 10878-0 ####[facility] LABIA [id number] [place], [place] [address]Aceuxdxdbuj/100 WBC (Bld)6.0 %NormalProMedica Memorial Hospital on above:Order Comment: Specimen Type: BLOOD SPECIMENOrdering Facility: [facility] Address:[address] [place], [place] [address]Performed By: #### 08018-8 ####[facility] LABIA [id number] [place], [place] [address]Zeriwgeting distribution width (RBC) [Ratio]15.9 %High 11.5-15.0[facility] on above:Order Comment: Specimen Type: BLOOD SPECIMENOrdering Facility: [facility] Address:[address] [place], [place] [address]Performed By: #### 71270-8 ####[facility] LABIA [id number] [place] [address] Hematocrit (Bld) [Volume fraction]35.4 %Low39.0-51.0[facility] Comment on above:Order Comment: Specimen Type: BLOOD SPECIMENOrdering Facility: [facility] Address:[address] [place] [address] Performed By: #### 79549-8 ####[facility] LABIA [id number] [place], [place] [address]Jdeloymidt (Bld) [Mass/Vol]11.7 g/dLLow13.0-17.0[facility] on above:Order Comment: Specimen Type: BLOOD SPECIMENOrdering Facility: [facility] Address:[address] [place], [place] [address]Performed By: #### 08560-5 ####[facility] LABCLIA [id number] [place], [place] [address]Flzspuhj granulocytes (Bld) [#/Vol]10*3/uLNormal<0.10 [facility] on above:Order Comment: Specimen Type: BLOOD SPECIMENOrdering Facility: [facility] Address:[address] [place], [place] [address]Performed By: #### 85196-9 ####[facility] LABCLIA [id number] [place], [place] [address]Xtpywdzq granulocytes/100 WBC (Bld)0.3 %[facility] on above: Order Comment: Specimen Type: BLOOD SPECIMENOrdering Facility: [facility] Address:[address] [place], [place] [address]Performed By: #### 63171- 8 ####[facility] LABCLIA [id number] [place], [place] [address]Svruoezlnop (Bld) [#/Vol]0.39 10*3/uLLow1.00-4.00 [facility] on above:Order Comment: Specimen Type: BLOOD SPECIMENOrdering Facility: [facility] Address:[address] [place], [place] [address]Performed By: #### 32961-1 ####[facility] LABCLIA [id number] [place], [place] [address]Jxokyibsdov/100 WBC (Bld)10.1 %NormalProMedica Memorial Hospital on above:Order Comment: Specimen Type: BLOOD SPECIMENOrdering Facility: [facility] Address:[address] [place], [place] [address]Performed By: #### 30284-3 ####[facility] LABCLIA [id number] [place], [place] [address]QBN (RBC) [Entitic mass]29.5 kuIentmi34.0-34.0[facility] on above:Order Comment: Specimen Type: BLOOD SPECIMENOrdering Facility: [facility] Address:[address] [place], [place] [address]Performed By: #### 84809-4 ####[facility] LABCLIA [id number] [place], [place] [address]YIOD (RBC) [Mass/Vol]33.1 g/zIUtbazl53.5-36.0[facility] on above: Order Comment: Specimen Type: BLOOD SPECIMENOrdering Facility: [facility] Address:[address] [place], [place] [address]Performed By: #### 31628- 8 ####[facility] LABCLIA [id number] [place], [place] [address]APO (RBC) [Entitic vol]89.2 gJLesncb05.0-100.0[facility] on above:Order Comment: Specimen Type: BLOOD SPECIMENOrdering Facility: [facility] Address:[address] [place], [place] [address]Performed By: #### 35077-5 ####[facility] LABCLIA [id number] [place], [place] [address]Ljqzrdgjr (Bld) [#/Vol]0.70 10*3/uLNormal<0.87[facility] on above:Order Comment: Specimen Type: BLOOD SPECIMENOrdering Facility: [facility] Address:[address] [place], [place] [address]Performed By: #### 88507- 8 ####[facility] LABCLIA [id number] [place], [place] [address]Cjacdcqaz/100 WBC (Bld)18.2 %NormalProMedica Memorial Hospital on above:Order Comment: Specimen Type: BLOOD SPECIMENOrdering Facility: [facility] Address:[address] [place], [place] [address]Performed By: #### 71141-5 ####[facility] LABCLIA [id number] [place], [place] [address]Tufxwgbohyx (Bld) [#/Vol]2.48 10*3/uLNormal1.45-7.50[facility] on above:Order Comment: Specimen Type: BLOOD SPECIMENOrdering Facility: [facility] Address:[address] [place], [place] [address]Performed By: #### 17923-7 ####[facility] LABIA [id number] [place], [place] [address]Hpzgumutdjo/100 WBC (Bld)64.4 %NormalProMedica Memorial Hospital on above:Order Comment: Specimen Type: BLOOD SPECIMENOrdering Facility: [facility] Address:[address] [place], [place] [address]Performed By: #### 22701-7 ####[facility] LABIA [id number] [place], [place] [address]Rdgoeaiqq RBC (Bld) [#/Vol] 10*3/uLNormal<0.01[facility] on above:Order Comment: Specimen Type: BLOOD SPECIMENOrdering Facility: [facility] Address:[address] [place], [place] [address]Performed By: #### 06360-6 ####[facility] LABIA [id number] [place], [place] [address]Zqicxegdp RBC/100 WBC (Bld) [Ratio]0.0 /100 WBCNormal [facility] on above:Order Comment: Specimen Type: BLOOD SPECIMENOrdering Facility: [facility] Address:[address] [place], [place] [address]Performed By: #### 96337-4 ####[facility] LABIA [id number] [place], [place] [address]Hxcyvivv mean volume (Bld) [Entitic vol]9.7 fLNormal9.0-12.7[facility] on above:Order Comment: Specimen Type: BLOOD SPECIMENOrdering Facility: [facility] Address:[address] [place] [address] Performed By: #### 17797-0 ####[facility] LABCLIA [id number] [place], [place] [address]Dtfwijyyj (Bld) [#/Vol]208 10*3/yECnaftb765-765DqssssnscProMedica Memorial Hospital on above:Order Comment: Specimen Type: BLOOD SPECIMENOrdering Facility: [facility] Address:[address] [place], [place] [address]Performed By: #### 81603-1 ####[facility] LABCLIA [id number] [place], [place] [address]TFU (Bld) [#/Vol]3.97 10*6/uLLow4.20-6.00[facility] on above:Order Comment: Specimen Type: BLOOD SPECIMENOrdering Facility: [facility] Address:[address] [place], [place] [address]Performed By: #### 32843-6 ####[facility] LABCLIA [id number] [place], [place] [address]DYV (Bld) [#/Vol]3.85 10*3/uL Normal3.70-11.00[facility] on above:Order Comment: Specimen Type: BLOOD SPECIMENOrdering Facility: [facility] Address:[address] [place], [place] [address]Performed By: #### 52923-4 ####[facility] LABCLIA [id number] [place], [place] [address]CQIFBMuc 52-28-8044MZHWYXWwodokDqopbskjo [facility] CNPNon 44-49-2589NKSNQxpsknIkpnkkcqz Clinic ClevelandComprehensive metabolic 2000 panelon 12-80-9236Fjxarmc [Mass/Vol]3.9 g/dLNormal3.9-4.9[facility] on above:Order Comment: Specimen Type: BLOOD SPECIMENOrdering Facility: [facility] Address:[address] [place], [place] [address]Performed By: #### 80399-1 ####[facility] LABCLIA [id number] [place], [place] [address]KMA [Catalytic activity/Vol]214 U/LNxjq96-080IefrqmoygProMedica Memorial Hospital on above:Order Comment: Specimen Type: BLOOD SPECIMENOrdering Facility: [facility] Address:[address] [place], [place] [address]Performed By: #### 90052-2 ####[facility] LABCLIA [id number] [place] [address] ALT [Catalytic activity/Vol]24 U/OKfjjyo02-79CwyxsbykkProMedica Memorial Hospital on above:Order Comment: Specimen Type: BLOOD SPECIMENOrdering Facility: [facility] Address:[address] [place] [address] Performed By: #### 38587-8 ####[facility] LABCLIA [id number] [place], [place] [address]Dawjl gap [Moles/Vol]14 mmol/L Normal8-15[facility] on above:Order Comment: Specimen Type: BLOOD SPECIMENOrdering Facility: [facility] Address:[address] [place], [place] [address]Performed By: #### 76193-1 ####[facility] LABCLIA [id number] [place] [address] AST [Catalytic activity/Vol]56 U/OVcye77-35LzzlonhzdProMedica Memorial Hospital on above:Order Comment: Specimen Type: BLOOD SPECIMENOrdering Facility: [facility] Address:[address] [place], [place] [address]Performed By: #### 05235-5 ####[facility] LABCLIA [id number] [place] [address]Goypikskn [Mass/Vol]0.5 mg/dLNormal0.2-1.3[facility] on above:Order Comment: Specimen Type: BLOOD SPECIMENOrdering Facility: [facility] Address:[address] [place], [place] [address]Performed By: #### 87542-4 ####[facility] LABCLIA [id number] [place], [place] [address]Ijimvek [Mass/Vol]8.9 mg/dLNormal8.5-10.2[facility] on above: Order Comment: Specimen Type: BLOOD SPECIMENOrdering Facility: [facility] Address:[address] [place], [place] [address]Performed By: #### 88803- 8 ####[facility] LABCLIA [id number] [facility] [place], [place] [address]Bxhokssl [Moles/Vol]113 mmol/UFmhc75-820VwjtevdqmProMedica Memorial Hospital on above:Order Comment: Specimen Type: BLOOD SPECIMENOrdering Facility: [facility] Address:[address] [place], [place] [address]Performed By: #### 86222-8 ####[facility] LABCLIA [id number] [place], [place] [address]HJ0 [Moles/Vol]18 mmol/LLow 22-30[facility] on above:Order Comment: Specimen Type: BLOOD SPECIMENOrdering Facility: [facility] Address:[address] [place], [place] [address]Performed By: #### 71502-5 ####[facility] LABIA [id number] [facility] [place] [address] Creatinine [Mass/Vol]0.93 mg/dLNormal0.73-1.22[facility] on above:Order Comment: Specimen Type: BLOOD SPECIMENOrdering Facility: [facility] Address:[address] [place] [id number] Performed By: #### 67203-3 ####[facility] LABCLIA [id number] [place], [place] [address]nZIJoc SerPlBld CKD-EPI 056689 mL/min/1.73m???Normal>=60[facility] on above:Order Comment: Specimen Type: BLOOD SPECIMENOrdering Facility: [facility] Address:[address] [place], [place] [address]Result Comment: Estimated Glomerular Filtration Rate (eGFR) is calculated using the 2020 CKD-EPI cre atinine equation. This equation utilizes serum creatinine, sex, and age as parameters. The creatinine assay has traceable calibration to isotope dilution- mass spectrometry. Refer to KDIGO guidelines for clinical interpretation. In patients with unstable renal function, e.g. those with acute kidney injury, the eGFR may not accurately reflect actual GFR.Performed By: #### 65475-3 ####[facility] LABCLIA [id number] [place], [place] [address]Frzcmmq [Mass/Vol]107 mg/gLSyyx54-80PfhapyllhProMedica Memorial Hospital on above:Order Comment: Specimen Type: BLOOD SPECIMENOrdering Facility: [facility] Address:[address] [place], [place] [address]Result Comment: The [place] Diabetes Association (ADA) provides guidance for cutoff values for fasting glucose and random glucose. The ADA defines fasting as no caloric intake for at least 8 hours. Fasting plasma glucose results between 100 to 125 mg/dL indicate increased risk for diabetes (prediab etes).Fasting plasma glucose results greater than or equal to 126 mg/dL meet the criteria for diagnosis of diabetes. In the absence of unequivocal hyperglycemia, results should be confirmed by repeattesting. In a patient with classic symptoms of hyperglycemia or hyperglycemic crisis, random plasmaglucose results greater than or equal to 200 mg/dL meet the criteria for diagnosis of diabetes.Reference: Standards of Medical Care in Diabetes 2016, [place] [employer]. Diabetes Care. 2016.39(Suppl 1).Performed By: #### 89486-7 ####[facility] LABCLIA [id number] [place], [place] [address]Vfxqgusfp [Moles/Vol]4.6 mmol/LNormal3.7-5.1[facility] on above:Order Comment: Specimen Type: BLOOD SPECIMENOrdering Facility: [facility] Address:[address] [place], [place] [address]Performed By: #### 55779-0 ####[facility] LABCLIA [id number] [place], [place] [address]Hceqkla [Mass/Vol]6.5 g/dLNormal6.3-8.0[facility] on above:Order Comment: Specimen Type: BLOOD SPECIMENOrdering Facility: [facility] Address:[address] [place], [place] [address]Performed By: #### 97575- 8 ####[facility] LABIA [id number] [place], [place] [address]Boounj [Moles/Vol]145 mmol/OLdlz738-514XtpktyrzvProMedica Memorial Hospital on above:Order Comment: Specimen Type: BLOOD SPECIMENOrdering Facility: [facility] Address:[address] [place], [place] [address]Performed By: #### 13929-8 ####[facility] LABIA [id number] [place], [place] [address]Vume nitrogen [Mass/Vol]10 mg/dLNormal9-24[facility] on above:Order Comment: Specimen Type: BLOOD SPECIMENOrdering Facility: [facility] Address:[address] [place], [place] [address]Performed By: #### 07716-3 ####[facility] LABIA [id number] [place], [place] [address]ZL PET/CT NEUROENDOCRINE WBon 23-86-2820FS PET/CT NEUROENDOCRINE WBNormalCTriHealth [facility] W Auto Differential panel (Bld)on 83-60-1601Wdudiaoqr (Bld) [#/Vol]0.05 10*3/uLNormal<0.11[facility] on above:Order Comment: Specimen Type: BLOOD SPECIMENOrdering Facility: [facility] Address:[address] [place], [place] [address]Performed By: #### 49998-8 ####[facility] LABCLIA [id number] [place], [place] [address]Deswlgnaz/100 WBC (Bld)1.1 % [facility] on above:Order Comment: Specimen Type: BLOOD SPECIMENOrdering Facility: [facility] Address:[address] [place], [place] [address]Performed By: #### 11800-3 ####[facility] LABCLIA [id number] [place] [address] Differential cell count method Nom (Bld)AutoNormalCWayne HealthCare Main Campus Comment on above:Order Comment: Specimen Type: BLOOD SPECIMENOrdering Facility: [facility] Address:[address] [place] [address] Performed By: #### 10096-5 ####[facility] LABCLIA [id number] [place], [place] [address]Jcppzbdrqwn (Bld) [#/Vol]0.17 10*3/uLNormal<0.46[facility] on above:Order Comment: Specimen Type: BLOOD SPECIMENOrdering Facility: [facility] Address:[address] [place], [place] [address]Performed By: #### 18184-0 ####[facility] LABCLIA [id number] [place], [place] [address]Djzyofgzozw/100 WBC (Bld)3.6 %NormalProMedica Memorial Hospital on above:Order Comment: Specimen Type: BLOOD SPECIMENOrdering Facility: [facility] Address:[address] [place], [place] [address]Performed By: #### 32616-3 ####[facility] LABIA [id number] [place], [place] [address]Laddyllieja distribution width (RBC) [Ratio]15.8 %High11.5-15.0[facility] on above:Order Comment: Specimen Type: BLOOD SPECIMENOrdering Facility: [facility] Address:[address] [place], [place] [address]Performed By: #### 64507- 8 ####[facility] LABIA [id number] [place], [place] [address]Enatdlgsnc (Bld) [Volume fraction]34.0 %Low39.0-51.0 [facility] on above:Order Comment: Specimen Type: BLOOD SPECIMENOrdering Facility: [facility] Address:[address] [place], [place] [address]Performed By: #### 94470-1 ####[facility] LABIA [id number] [place], [place] [address]Zdgmupcaqg (Bld) [Mass/Vol]11.2 g/dLLow13.0-17.0[facility] on above:Order Comment: Specimen Type: BLOOD SPECIMENOrdering Facility: [facility] Address:[address] [place], [place] [address]Performed By: #### [id number]- [id number] ####[facility]IA [id number] [place], [place] [address]Yyuqyqiz granulocytes (Bld) [#/Vol]10*3/uLNormal<0.10 [facility] on above:Order Comment: Specimen Type: BLOOD SPECIMENOrdering Facility: [facility] Address:[address] [place], [place] [address]Performed By: #### [id number] ####[facility]IA [id number] [place], [place] [address]Ujjilyei granulocytes/100 WBC (Bld)0.4 %NormalProMedica Memorial Hospital on above: Order Comment: Specimen Type: BLOOD SPECIMENOrdering Facility: [facility] Address:[address] [place], [place] [address]Performed By: #### [id number]- [id number] ####[facility] [facility] LABCLIA [id number] [place], [place] [address]Arekleufboc (Bld) [#/Vol]0.40 10*3/uLLow1.00-4.00 [facility] on above:Order Comment: Specimen Type: BLOOD SPECIMENOrdering Facility: [facility] Address:[address] [place], [place] [address]Performed By: #### 94950-4 ####[facility] LABCLIA [id number] [place], [place] [address]Sranqjliofr/100 WBC (Bld)8.5 %NormalProMedica Memorial Hospital on above:Order Comment: Specimen Type: BLOOD SPECIMENOrdering Facility: [facility] Address:[address] [place], [place] [address]Performed By: #### 56104-7 ####[facility] LABCLIA [id number] [place], [place] [address]QGW (RBC) [Entitic mass]29.0 xmKqoeiy44.0-34.0[facility] on above:Order Comment: Specimen Type: BLOOD SPECIMENOrdering Facility: [facility] Address:[address] [place], [place] [address]Performed By: #### 19269-6 ####[facility] LABCLIA [id number] [place], [place] [address]MGWN (RBC) [Mass/Vol]32.9 g/yZPqesnk70.5-36.0[facility] on above: Order Comment: Specimen Type: BLOOD SPECIMENOrdering Facility: [facility] Address:[address] [place], [place] [address]Performed By: #### 49721- 8 ####[facility] LABCLIA [id number] [place], [place] [address]HJQ (RBC) [Entitic vol]88.1 aTQlufta71.0-100.0[facility] on above:Order Comment: Specimen Type: BLOOD SPECIMENOrdering Facility: [facility] Address:[address] [place], [place] [address]Performed By: #### 05858-6 ####[facility] LABCLIA [id number] [place], [place] [address]Fwgthejma (Bld) [#/Vol]0.73 10*3/uLNormal<0.87[facility] on above:Order Comment: Specimen Type: BLOOD SPECIMENOrdering Facility: [facility] Address:[address] [place], [place] [address]Performed By: #### 71987- 8 ####[facility] LABCLIA [id number] [place], [place] [address]Fwfwcusze/100 WBC (Bld)15.6 %NormalProMedica Memorial Hospital on above:Order Comment: Specimen Type: BLOOD SPECIMENOrdering Facility: [facility] Address:[address] [place], [place] [address]Performed By: #### 00926-8 ####[facility] LABCLIA [id number] [place], [place] [address]Hxxmsbqrnmh (Bld) [#/Vol]3.32 10*3/uLNormal1.45-7.50[facility] on above:Order Comment: Specimen Type: BLOOD SPECIMENOrdering Facility: [facility] Address:[address] [place], [place] [address]Performed By: #### 49518-3 ####[facility] LABCLIA [id number] [place], [place] [address]Fixpvsoddzc/100 WBC (Bld)70.8 %NormalProMedica Memorial Hospital on above:Order Comment: Specimen Type: BLOOD SPECIMENOrdering Facility: [facility] Address:[address] [place], [place] [address]Performed By: #### 43417-2 ####[facility] LABCLIA [id number] [place], [place] [address]Owcjvgjlb RBC (Bld) [#/Vol] 10*3/uLNormal<0.01[facility] on above:Order Comment: Specimen Type: BLOOD SPECIMENOrdering Facility: [facility] Address:[address] [place], [place] [address]Performed By: #### 87142-7 ####[facility] LABCLIA [id number] [place], [place] [address]Oqplbeuqh RBC/100 WBC (Bld) [Ratio]0.0 /100 WBCNormal [facility] on above:Order Comment: Specimen Type: BLOOD SPECIMENOrdering Facility: [facility] Address:[address] [place], [place] [address]Performed By: #### 71660-6 ####[facility] LABCLIA [id number] [place], [place] [address]Exyolicj mean volume (Bld) [Entitic vol]9.8 fLNormal9.0-12.7[facility] on above:Order Comment: Specimen Type: BLOOD SPECIMENOrdering Facility: [facility] Address:[address] [place] [address] Performed By: #### 13898-6 ####[facility] LABCLIA [id number] [place], [place] [address]Vcoikbsah (Bld) [#/Vol]244 10*3/zUVmafma654-291EixyvuruiProMedica Memorial Hospital on above:Order Comment: Specimen Type: BLOOD SPECIMENOrdering Facility: [facility] Address:[address] [place], [place] [address]Performed By: #### 24860-9 ####[facility] LABCLIA [id number] [place], [place] [address]NWE (Bld) [#/Vol]3.86 10*6/uLLow4.20-6.00[facility] on above:Order Comment: Specimen Type: BLOOD SPECIMENOrdering Facility: [facility] Address:[address] [place], [place] [address]Performed By: #### 11247-4 ####[facility] LABIA [id number] [place], [place] [address]LYB (Bld) [#/Vol]4.69 10*3/uL Normal3.70-11.00[facility] on above:Order Comment: Specimen Type: BLOOD SPECIMENOrdering Facility: [facility] Address:[address] [place], [place] [address]Performed By: #### 12110-5 ####[facility] LABIA [id number] [place], [place] [address]IEN CBC W AUTO DIFF BLDon 60-71-3220Noirgminv/100 WBC (Bld)1.1 %[facility] BASOPHILS # BLD AUTO0.05NILiving[facility] DIFFERENTIAL METHOD BLDAutoNOMSullivan County Memorial Hospital EOSINOPHIL # BLD AUTO0.17NILiving[facility] LYMPHOCYTES # BLD AUTO0.4LowSaint Luke's Health System MONOCYTES # BLD AUTO0.73NILiving[facility] NEUTROPHILS # BLD AUTO3.32[facility] NRBC # BLD AUTO<0.01NILiving[facility] NRBC/100 WBC BLD-RTO0/100 WBCSaint Luke's Health System PLATELET # BLD TBIB136IHRFRanken Jordan Pediatric Specialty Hospital PMV BLD AUTO9.8 fL9.0 - 12.7 fLSaint Luke's Health System WBC # BLD AUTO4.69NOCox NorthEosinophils/100 WBC (Bld)3.6 %NOMS HealthcareErythrocyte distribution width (RBC) [Ratio]15.8 %High 11.5 - 15.0 %NOMS HealthcareHematocrit (Bld) [Volume fraction]34 %Low39.0 - 51.0 %[facility]west Medical CenterHemoglobin (Bld) [Mass/Vol]11.2 g/dLLow13.0 - 17.0 g/dLCameron Regional Medical Center GRANULOCYTES # BLD AUTO<0.03NINFCameron Regional Medical Center GRANULOCYTES/LEUK NFR BLD AUTO0.4 %[facility] Medical CenterInterpretation and review of laboratory resultsAbnoSt. Luke's University Health NetworkLymphocytes/100 WBC (Bld)8.5 %Citizens Memorial HealthcareH (RBC) [Entitic mass]29 pg26.0 - 34.0 pgCitizens Memorial HealthcareHC (RBC) [Mass/Vol]32.9 g/dL30.5 - 36.0 g/dLCitizens Memorial HealthcareV (RBC) [Entitic vol]88.1 fL 80.0 - 100.0 fLNorthwest Medical CenterMonocytes/100 WBC (Bld)15.6 %[facility] Neutrophils/100 WBC (Bld)70.8 %[facility] Medical CenterRBC (Bld) [#/Vol]3.86 10*6/uLLow 4.20 - 6.00 m/uLMOUNTAIN VIEW HOSPITAL HealthcareSpecimen Type: BLOOD SPECIMEN [facility] Address: [address] [place] [address] Original Ordering Provider: ROSELYN MORLEYCarondelet HealthPNon 23-43-6338JOEUHyyvghZpmcvfwwr Clinic ClevelandComprehensive metabolic 2000 panel on 98-79-2634Peuchyz [Mass/Vol]4.2 g/dLNormal3.9-4.9CWay[facility] Comment on above:Order Comment: Specimen Type: BLOOD SPECIMENOrdering Facility: [facility] Address:[address] [place] [address] Performed By: #### 86515-8 ####[facility] LABIA [id number] [place], [place] [address]JGI [Catalytic activity/Vol]208 U/PXjtz04-550NdjeigtnoUniversity Hospitals Samaritan Medical CenterComment on above:Order Comment: Specimen Type: BLOOD SPECIMENOrdering Facility: [facility] Address:[address] [place], [place] [address]Usjvkzmdh By: #### 57250-1 ####[facility] LABCLIA [id number] [place] [address] ALT [Catalytic activity/Vol]15 U/UImigto70-62NncvpkqtiProMedica Memorial Hospital on above:Order Comment: Specimen Type: BLOOD SPECIMENOrdering Facility: [facility] Address:[address] [place] [address] Performed By: #### 11667-7 ####[facility] LABCLIA [id number] [place], [place] [address]Ykzwa gap [Moles/Vol]11 mmol/L Normal8-15[facility] on above:Order Comment: Specimen Type: BLOOD SPECIMENOrdering Facility: [facility] Address:[address] [place], [place] [address]Performed By: #### 93395-9 ####[facility] LABCLIA [id number] [place] [address] AST [Catalytic activity/Vol]35 U/PZjlwns21-26CjecwxjqnProMedica Memorial Hospital on above:Order Comment: Specimen Type: BLOOD SPECIMENOrdering Facility: [facility] Address:[address] [place] [address] Performed By: #### 02221-8 ####[facility] LABCLIA [id number] [place], [place] [address]Uhffvsslk [Mass/Vol]0.4 mg/dL Normal0.2-1.3CM[facility] on above:Order Comment: Specimen Type: BLOOD SPECIMENOrdering Facility: [facility] Address:[address] [place], [place] [address]Performed By: #### 14530-0 ####[facility] LABIA [id number] [place] [address] Calcium [Mass/Vol]8.6 mg/dLNormal8.5-10.2CM[facility] on above:Order Comment: Specimen Type: BLOOD SPECIMENOrdering Facility: [facility] Address:[address] [place], [place] [address]Performed By: #### 48345-8 ####[facility] LABCLIA [id number] [place], [place] [address]Lryzjgvg [Moles/Vol]106 mmol/VOgnnhk68-788EbraxqghcProMedica Memorial Hospital on above:Order Comment: Specimen Type: BLOOD SPECIMENOrdering Facility: [facility] Address:[address] [place], [place] [address]Performed By: #### 34239-5 ####[facility] LABCLIA [id number] [place], [place] [address]RN5 [Moles/Vol] 18 mmol/DMbv96-72QbvsdjdjiProMedica Memorial Hospital on above:Order Comment: Specimen Type: BLOOD SPECIMENOrdering Facility: [facility] Address:[address] [place], [place] [address]Performed By: #### 03651-0 ####[facility] LABCLIA [id number] [place], [place] [address]Veavuqmddu [Mass/Vol]1.00 mg/dLNormal0.73-1.22[facility] on above:Order Comment: Specimen Type: BLOOD SPECIMENOrdering Facility: [facility] Address:[address] [place], [place] [address]Performed By: #### 67701-7 ####[facility] LABIA [id number] [place], [place] [address]tBEVaq SerPlBld CKD-EPI 188410 mL/min/1.73m???Normal>=60[facility] on above:Order Comment: Specimen Type: BLOOD SPECIMENOrdering Facility: [facility] Address:[address] [place], [place] [address]Result Comment: Estimated Glomerular Filtration Rate (eGFR) is calculated using the 2020 CKD-EPI creatinine equation. This equation utilizes serum creatinine, sex, and age as parameters. The creatinine assay has traceable calibration to isotope dilution- mass spectrometry. Refer to KDIGO guidelines for clinical interpretation. In patients with unstable renal function, e.g. those with acute kidney injury, the eGFR may not accurately reflect actual GFR.Performed By: #### 03929-4 ####[facility] LABCLIA [id number] [place], [place] [address]Yqwbqyj [Mass/Vol]98 mg/nYOhxjlu48-39GhcsnqzatProMedica Memorial Hospital on above:Order Comment: Specimen Type: BLOOD SPECIMENOrdering Facility: [facility] Address:[address] [place], [place] [address]Result Comment: The [place] [employer] Association (ADA) provides guidance for cutoff values for fasting glucose and random glucose. The ADA defines fasting as no caloric intake for at least 8 hours. Fasting plasma glucose results between 100 to 125 mg/dL indicate increased risk for diabetes (prediab etes).Fasting plasma glucose results greater than or equal to 126 mg/dL meet the criteria for diagnosis of diabetes. In the absence of unequivocal hyperglycemia, results should be confirmed by repeattesting. In a patient with classic symptoms of hyperglycemia or hyperglycemic crisis, random plasmaglucose results greater than or equal to 200 mg/dL meet the criteria for diagnosis of diabetes.Reference: Standards of Medical Care in Diabetes 2016, [place] [employer]. Diabetes Care. 2016.39(Suppl 1).Performed By: #### 21352-5 ####[facility] LABCLIA [id number] [place], [place] [address]Ztmtuzvvq [Moles/Vol]4.6 mmol/LNormal3.7-5.1CM[facility] on above:Order Comment: Specimen Type: BLOOD SPECIMENOrdering Facility: [facility] Address:[address] [place], [place] [address]Ptebymobx By: #### 10736-1 ####[facility] LABCLIA [id number] [place], [place] [address]Xmzurhk [Mass/Vol]6.9 g/dLNormal6.3-8.0[facility] on above:Order Comment: Specimen Type: BLOOD SPECIMENOrdering Facility: [facility] Address:[address] [place], [place] [address]Performed By: #### 18777- 8 ####[facility] LABCLIA [id number] [place], [place] [address]Reegld [Moles/Vol]135 mmol/WPqe855-580CwzoiieqtProMedica Memorial Hospital on above:Order Comment: Specimen Type: BLOOD SPECIMENOrdering Facility: [facility] Address:[address] [place], [place] [address]Performed By: #### 27591-8 ####[facility] LABCLIA [id number] [place], [place] [address]Sbsw nitrogen [Mass/Vol]17 mg/dLNormal9-24[facility] on above:Order Comment: Specimen Type: BLOOD SPECIMENOrdering Facility: [facility] Address:[address] [place], [place] [address]Performed By: #### 85890-1 ####[facility] LABCLIA [id number] [place], [place] [address]HUA W Auto Differential panel (Bld)on 33-25-9995Bojzsrftk (Bld) [#/Vol]0.06 10*3/uLNormal<0.11CM[facility] on above: Order Comment: Specimen Type: BLOOD SPECIMENOrdering Facility: [facility] Address:[address] [place], [place] [address]Performed By: #### 30764- 8 ####[facility] LABCLIA [id number] [place], [place] [address]Zqjgxissh/100 WBC (Bld)1.3 %NormalProMedica Memorial Hospital on above:Order Comment: Specimen Type: BLOOD SPECIMENOrdering Facility: [facility] Address:[address] [place], [place] [address]Performed By: #### 06927-1 ####[facility] LABCLIA [id number] [place], [place] [address]Fuipnxxpemjw cell count method Nom (Bld)AutoNormalCMary Rutan Hospital on above:Order Comment: Specimen Type: BLOOD SPECIMENOrdering Facility: [facility] Address:[address] [place], [place] [address]Performed By: #### 10948-5 ####[facility] LABCLIA [id number] [place], [place] [address]Utlsyififfa (Bld) [#/Vol]0.12 10*3/uLNormal<0.46[facility] on above:Order Comment: Specimen Type: BLOOD SPECIMENOrdering Facility: [facility] Address:[address] [place], [place] [address]Performed By: #### 56610-4 ####[facility] LABIA [id number] [place], [place] [address]Mifpettogvx/100 WBC (Bld)2.6 %NormalProMedica Memorial Hospital on above:Order Comment: Specimen Type: BLOOD SPECIMENOrdering Facility: [facility] Address:[address] [place], [place] [address]Performed By: #### 53855-4 ####[facility] LABCLIA [id number] [place], [place] [address]Jrjkpyiibwk distribution width (RBC) [Ratio]15.5 %High 11.5-15.0[facility] on above:Order Comment: Specimen Type: BLOOD SPECIMENOrdering Facility: [facility] Address:[address] [place], [place] [address]Performed By: #### 22993-5 ####[facility] LABIA [id number] [place] [address] Hematocrit (Bld) [Volume fraction]36.2 %Low39.0-51.0[facility] Comment on above:Order Comment: Specimen Type: BLOOD SPECIMENOrdering Facility: [facility] Address:[address] [place] [address] Performed By: #### 05170-3 ####[facility] LABCLIA [id number] [place], [place] [address]Zuvokwaubd (Bld) [Mass/Vol]11.5 g/dLLow13.0-17.0[facility] on above:Order Comment: Specimen Type: BLOOD SPECIMENOrdering Facility: [facility] Address:[address] [place], [place] [address]Performed By: #### 21620-1 ####[facility] LABCLIA [id number] [place], [place] [address]Fedwvywd granulocytes (Bld) [#/Vol]10*3/uLNormal<0.10 [facility] on above:Order Comment: Specimen Type: BLOOD SPECIMENOrdering Facility: [facility] Address:[address] [place], [place] [address]Performed By: #### 66937-5 ####[facility] LABCLIA [id number] [place], [place] [address]Cpjfflyd granulocytes/100 WBC (Bld)0.2 %NormalProMedica Memorial Hospital on above: Order Comment: Specimen Type: BLOOD SPECIMENOrdering Facility: [facility] Address:[address] [place], [place] [address]Performed By: #### 25475- 8 ####[facility] LABCLIA [id number] [place], [place] [address]Dxptudgkkff (Bld) [#/Vol]0.42 10*3/uLLow1.00-4.00 [facility] on above:Order Comment: Specimen Type: BLOOD SPECIMENOrdering Facility: [facility] Address:[address] [place], [place] [address]Performed By: #### 26922-5 ####[facility] LABIA [id number] [place], [place] [address]Dqmsjbdxjcx/100 WBC (Bld)8.9 %NormalProMedica Memorial Hospital on above:Order Comment: Specimen Type: BLOOD SPECIMENOrdering Facility: [facility] Address:[address] [place], [place] [address]Performed By: #### 96273-8 ####[facility] LABCLIA [id number] [place], [place] [address]NHC (RBC) [Entitic mass]28.5 gxHucyjk65.0-34.0[facility] on above:Order Comment: Specimen Type: BLOOD SPECIMENOrdering Facility: [facility] Address:[address] [place], [place] [address]Performed By: #### 69597-0 ####[facility] LABCLIA [id number] [place], [place] [address]JGCV (RBC) [Mass/Vol]31.8 g/uMNtedvu49.5-36.0[facility] on above: Order Comment: Specimen Type: BLOOD SPECIMENOrdering Facility: [facility] Address:[address] [place], [place] [address]Performed By: #### 72087- 8 ####[facility] LABCLIA [id number] [place], [place] [address]GBK (RBC) [Entitic vol]89.6 jYMcghqb77.0-100.0[facility] on above:Order Comment: Specimen Type: BLOOD SPECIMENOrdering Facility: [facility] Address:[address] [place], [place] [address]Performed By: #### 82233-9 ####[facility] LABIA [id number] [place], [place] [address]Jmerkfkkb (Bld) [#/Vol]0.70 10*3/uLNormal<0.87[facility] on above:Order Comment: Specimen Type: BLOOD SPECIMENOrdering Facility: [facility] Address:[address] [place], [place] [address]Performed By: #### 30970- 8 ####[facility] LABCLIA [id number] [place], [place] [address]Bdnmsmyql/100 WBC (Bld)14.9 %NormalProMedica Memorial Hospital on above:Order Comment: Specimen Type: BLOOD SPECIMENOrdering Facility: [facility] Address:[address] [place], [place] [address]Performed By: #### 12096-7 ####[facility] LABCLIA [id number] [place], [place] [address]Pykufvsgxyb (Bld) [#/Vol]3.39 10*3/uLNormal1.45-7.50[facility] on above:Order Comment: Specimen Type: BLOOD SPECIMENOrdering Facility: [facility] Address:[address] [place], [place] [address]Performed By: #### 21863-1 ####[facility] LABCLIA [id number] [place], [place] [address]Mxaxlbjhbdd/100 WBC (Bld)72.1 %NormalProMedica Memorial Hospital on above:Order Comment: Specimen Type: BLOOD SPECIMENOrdering Facility: [facility] Address:[address] [place], [place] [address]Performed By: #### 47244-8 ####[facility] LABCLIA [id number] [place], [place] [address]Hsskzelhu RBC (Bld) [#/Vol] 10*3/uLNormal<0.01[facility] on above:Order Comment: Specimen Type: BLOOD SPECIMENOrdering Facility: [facility] Address:[address] [place], [place] [address]Performed By: #### 32837-2 ####[facility] LABCLIA [id number] [place], [place] [address]Nqhujkejm RBC/100 WBC (Bld) [Ratio]0.0 /100 WBCNormal [facility] on above:Order Comment: Specimen Type: BLOOD SPECIMENOrdering Facility: [facility] Address:[address] [place], [place] [address]Performed By: #### 41123-3 ####[facility] LABCLIA [id number] [place], [place] [address]Vurhstqw mean volume (Bld) [Entitic vol]10.1 fLNormal9.0-12.7CM[facility] on above:Order Comment: Specimen Type: BLOOD SPECIMENOrdering Facility: [facility] Address:[address] [place] [address] Performed By: #### 48039-3 ####[facility] LABCLIA [id number] [place], [place] [address]Tddgcdcjz (Bld) [#/Vol]261 10*3/xLSeofoa551-214NsuvtpxikProMedica Memorial Hospital on above:Order Comment: Specimen Type: BLOOD SPECIMENOrdering Facility: [facility] Address:[address] [place], [place] [address]Performed By: #### 76234-4 ####[facility] LABCLIA [id number] [place], [place] [address]GUZ (Bld) [#/Vol]4.04 10*6/uLLow4.20-6.00[facility] on above:Order Comment: Specimen Type: BLOOD SPECIMENOrdering Facility: [facility] Address:[address] [place], [place] [address]Performed By: #### 28475-5 ####[facility] LABIA [id number] [place], [place] [address]BLJ (Bld) [#/Vol]4.70 10*3/uL Normal3.70-11.00[facility] on above:Order Comment: Specimen Type: BLOOD SPECIMENOrdering Facility: [facility] Address:[address] [place], [place] [address]Performed By: #### 19926-0 ####[facility] LABCLIA [id number] [place], [place] [address]AOY CBC W AUTO DIFF BLDon 44-31-0367Ewebdwlps/100 WBC (Bld)1.3 %[facility] BASOPHILS # BLD AUTO0.06NILiving[facility] DIFFERENTIAL METHOD BLDAutoNOMSullivan County Memorial Hospital EOSINOPHIL # BLD AUTO0.12NIL[facility] LYMPHOCYTES # BLD AUTO0.42LowSaint Luke's Health System MONOCYTES # BLD AUTO0.7NILiving[facility] NEUTROPHILS # BLD AUTO3.39NOSSM Health CareF NRBC # BLD AUTO<0.01NILivingston [facility] NRBC/100 WBC BLD-RTO0/100 WBCSaint Luke's Health System PLATELET # BLD JYLX228RNKDRanken [facility] PMV BLD AUTO10.1 fL9.0 - 12.7 fLSaint Luke's Health System WBC # BLD AUTO4.7NOCox NorthEosinophils/100 WBC (Bld)2.6 %[facility] Medical CenterErythrocyte distribution width (RBC) [Ratio]15.5 %High 11.5 - 15.0 %[facility] Medical CenterHematocrit (Bld) [Volume fraction]36.2 %Low39.0 - 51.0 %[facility] Medical CenterHemoglobin (Bld) [Mass/Vol]11.5 g/dLLow13.0 - 17.0 g/dLCameron Regional Medical Center GRANULOCYTES # BLD AUTO<0.03NIRegional Hospital of Jackson GRANULOCYTES/LEUK NFR BLD AUTO0.2 %[facility] CenterInterpretation and review of laboratory resultsAbnormalNorthwest Medical CenterLymphocytes/100 WBC (Bld)8.9 %[facility] HealthcareH (RBC) [Entitic mass]28.5 pg26.0 - 34.0 pgCitizens Memorial HealthcareHC (RBC) [Mass/Vol]31.8 g/dL30.5 - 36.0 g/dLCitizens Memorial HealthcareV (RBC) [Entitic vol]89.6 fL 80.0 - 100.0 fLNorthwest Medical CenterMonocytes/100 WBC (Bld)14.9 %[facility] Neutrophils/100 WBC (Bld)72.1 %[facility] HealthcareRBC (Bld) [#/Vol]4.04 10*6/uLLow 4.20 - 6.00 m/uLMOUNTAIN VIEW HOSPITAL HealthcareSpecimen Type: BLOOD SPECIMEN [facility] Address: [address] [place] [address] Original Ordering Provider: ROSELYN NARANJOSSM [facility] CenterCNOVSPon 30-36-5994LWEQABNrwfpmIkzoxwfne Clinic ClevelandCNPNon 01-01-2348ZBFUOxvkln [facility] Prebleprehensive metabolic 2000 panelon 87-07-5327Eqrfxsd [Mass/Vol]4.1 g/dLNormal3.9-4.9CM[facility] on above:Order Comment: Specimen Type: BLOOD SPECIMENOrdering Facility: [facility] Address:[address] [place], [place] [address]Performed By: #### 46664- 8 ####[facility] LABCLIA [id number] [place], [place] [address]LYB [Catalytic activity/Vol]224 U/FZtqr79-172GzutcthviProMedica Memorial Hospital on above:Order Comment: Specimen Type: BLOOD SPECIMENOrdering Facility: [facility] Address:[address] [place], [place] [address]Performed By: #### 26870-0 ####[facility] LABCLIA [id number] [place], [place] [address]CUE [Catalytic activity/Vol]13 U/ZFjrtgb17-76XimiqhlnyProMedica Memorial Hospital on above:Order Comment: Specimen Type: BLOOD SPECIMENOrdering Facility: [facility] Address:[address] [place], [place] [address]Performed By: #### 22548- 8 ####[facility] LABCLIA [id number] [place], [place] [address]Vywrb gap [Moles/Vol]13 mmol/LNormal8-15[facility] on above:Order Comment: Specimen Type: BLOOD SPECIMENOrdering Facility: [facility] Address:[address] [place], [place] [address]Performed By: #### [id number] ####[facility] LABCLIA [id number] [place], [place] [address]YLC [Catalytic activity/Vol]33 U/TFwwyjs20-44SzvmtjirmProMedica Memorial Hospital on above:Order Comment: Specimen Type: BLOOD SPECIMENOrdering Facility: [facility] Address:[address] [place], [place] [address]Performed By: #### [id number] ####[facility] LABCLIA [id number] [place] [address] Bilirubin [Mass/Vol]0.4 mg/dLNormal0.2-1.3CM[facility] on above:Order Comment: Specimen Type: BLOOD SPECIMENOrdering Facility: [facility] Address:[address] [place], [place] [address]Performed By: #### [id number] ####[facility] LABCLIA [id number] [place], [place] [address]Mxquhvl [Mass/Vol]8.9 mg/dLNormal8.5-10.2CM[facility] on above:Order Comment: Specimen Type: BLOOD SPECIMENOrdering Facility: [facility] Address:[address] [place], [place] [address]Performed By: #### 07272-5 ####[facility] LABCLIA [id number] [place] [address]Lglgvneb [Moles/Vol]107 mmol/TRolmgc43-973LqqczjesvProMedica Memorial Hospital on above: Order Comment: Specimen Type: BLOOD SPECIMENOrdering Facility: [facility] Address:[address] [place], [place] [address]Performed By: #### 75929- 8 ####[facility] LABCLIA [id number] [place], [place] [address]AC2 [Moles/Vol]19 mmol/PKnp09-95LzzqgngjwProMedica Memorial Hospital on above:Order Comment: Specimen Type: BLOOD SPECIMENOrdering Facility: [facility] Address:[address] [place], [place] [address]Performed By: #### 57884-6 ####[facility] LABCLIA [id number] [place], [place] [address]Binyrmfkvr [Mass/Vol]1.13 mg/dL Normal0.73-1.22[facility] on above:Order Comment: Specimen Type: BLOOD SPECIMENOrdering Facility: [facility] Address:[address] [place], [place] [address]Performed By: #### 53853-8 ####[facility] LABCLIA [id number] [place], [place] [address]wNMHmp SerPlBld CKD-EPI 723025 mL/min/1.73m???Normal>=60 [facility] on above:Order Comment: Specimen Type: BLOOD SPECIMENOrdering Facility: [facility] Address:[address] [place], [place] [address]Result Comment: Estimated Glomerular Filtration Rate (eGFR) is calculated using the 2020 CKD-EPI creatinine equation. This equation utilizes serum creatinine, sex, and age as parameters. The creatinine assay has traceable calibration to isotope dilution-mass spectrometry. Refer to KDIGO guidelines for clinical interpretation. In patients with unstable renal function, e.g. those with acute kidney injury, the eGFR may not accurately reflect actual GFR.Performed By: #### 92001-9 ####[facility] LABCLIA [id number] [place], [place] [address]Xcctbsi [Mass/Vol]105 mg/tQQrha81-14PyfcphrvyProMedica Memorial Hospital on above:Order Comment: Specimen Type: BLOOD SPECIMENOrdering Facility: [facility] Address:[address] [place] [address]Gvhhzx Comment: The [place] Diabetes Association (ADA) provides guidance for cutoff values for fast ing glucose and random glucose. The ADA defines fasting as no caloric intake for at least 8 hours. Fasting plasma glucose results between 100 to 125 mg/dL indicate increased risk for diabetes (prediabetes).Fasting plasma glucose results greater than or equal to 126 mg/dL meet the criteria for diagnosis of diabetes. In the absence of unequivocal hyperglycemia, results should be confirmed by repeattesting. In a patient with classic symptoms of hyperglycemia or hyperglycemic crisis, random plasmaglucose results greater than or equal to 200 mg/dL meet the criteria for diagnosis of diabetes.Reference: Standards of Medical Care in Diabetes 2016, [place] Diabetes Association. Diabetes Care. 2016.39(Suppl 1).Performed By: #### 71566-0 ####[facility] LABCLIA [id number] [place], [place] [address]Dznyaeein [Moles/Vol]4.5 mmol/LNormal3.7-5.1CM[facility] on above: Order Comment: Specimen Type: BLOOD SPECIMENOrdering Facility: [facility] Address:[address] [place], [place] [address]Performed By: #### 10241- 8 ####[facility] LABCLIA [id number] [place], [place] [address]Siwehfq [Mass/Vol]6.9 g/dLNormal6.3-8.0[facility] on above:Order Comment: Specimen Type: BLOOD SPECIMENOrdering Facility: [facility] Address:[address] [place], [place] [address]Performed By: #### 07024-7 ####[facility] LABCLIA [id number] [place], [place] [address]Oibdak [Moles/Vol]139 mmol/L Tjhkwl085-658HwlunrsqrProMedica Memorial Hospital on above:Order Comment: Specimen Type: BLOOD SPECIMENOrdering Facility: [facility] Address:[address] [place], [place] [address]Performed By: #### 56814-4 ####[facility] LABCLIA [id number] [place] [address] Urea nitrogen [Mass/Vol]16 mg/dLNormal9-24[facility] on above:Order Comment: Specimen Type: BLOOD SPECIMENOrdering Facility: [facility] Address:[address] [facility], [place] [address]Pdcsfnsmy By: #### 50413-4 ####[facility] LABCLIA [id number] [place], [place] [address]PVMZ VIT Aon 70-48-2718REVZHIG A22.3NOCox North Comment on above:Reference intervals for vitamin A determined from [facility] internal studies. Individuals with vitamin A less than 20 ug/dL are considered vitamin A deficient and those with serum concentrations less than 10 ug/dL are considered severely deficient. This test was developed and its performance characteristics determined by [facility]. It has not been cleared or approved by the Food and Drug Administration. Performed at: [address] [id number] MD Montana Muniz Original Ordering Provider: DO Chapin ParadaNorthwest Medical CenterVit Aon 92-21-7434Cmngmuy A22.3 microgram/dLInvalid Interpretation Code22.0-69.5FMorrow County HospitalComment on above:Result Comment: Reference intervals for vitamin A determined from [facility] internal studies. Individuals with vitamin A less than 20 ug/dL are considered vitamin A deficient and those with serum concentrations less than 10 ug/dL are considered severely deficient. This test was developed and its performance characteristics determined by [facility]. It has not been cleared or approved by the Food and Drug Administration. Performed at: [address] [id number] MD Montana PayaniPerformed By: #### [id number] #### [facility] [address] [place], [place] [address]OQE W Auto Differential panel (Bld)on 55-95-3474Wrdakyere (Bld) [#/Vol]0.04 10*3/uLNormal<0.11CM[facility] on above:Order Comment: Specimen Type: BLOOD SPECIMENOrdering Facility: [facility] Address:[address] [place], [place] [address]Performed By: #### 95742- 8 ####[facility] LABCLIA [id number] [place], [place] [address]Dibrzbkuq/100 WBC (Bld)0.9 %NormalProMedica Memorial Hospital on above:Order Comment: Specimen Type: BLOOD SPECIMENOrdering Facility: [facility] Address:[address] [place], [place] [address]Performed By: #### 93925-1 ####[facility] LABCLIA [id number] [place], [place] [address]Wdxrutucmoxl cell count method Nom (Bld)AutoNormalCMary Rutan Hospital on above:Order Comment: Specimen Type: BLOOD SPECIMENOrdering Facility: [facility] Address:[address] [place], [place] [address]Performed By: #### 40188-8 ####[facility] LABCLIA [id number] [place], [place] [address]Zayoboegeot (Bld) [#/Vol]0.15 10*3/uLNormal<0.46[facility] on above:Order Comment: Specimen Type: BLOOD SPECIMENOrdering Facility: [facility] Address:[address] [place], [place] [address]Performed By: #### 36433-0 ####[facility] LABCLIA [id number] [place], [place] [address]Pssejlyfpbn/100 WBC (Bld)3.3 %NormalProMedica Memorial Hospital on above:Order Comment: Specimen Type: BLOOD SPECIMENOrdering Facility: [facility] Address:[address] [place], [place] [address]Performed By: #### 12868-1 ####[facility] LABCLIA [id number] [place], [place] [address]Rrnvnqgtvvh distribution width (RBC) [Ratio]14.8 %Normal 11.5-15.0[facility] on above:Order Comment: Specimen Type: BLOOD SPECIMENOrdering Facility: [facility] Address:[address] [place], [place] [address]Performed By: #### 10237-8 ####[facility] LABCLIA [id number] [place] [address] Hematocrit (Bld) [Volume fraction]31.9 %Low39.0-51.0[facility] Comment on above:Order Comment: Specimen Type: BLOOD SPECIMENOrdering Facility: [facility] Address:[address] [place] [address] Performed By: #### 81461-0 ####[facility] LABIA [id number] [place], [place] [address]Lkccnipgcx (Bld) [Mass/Vol]10.1 g/dLLow13.0-17.0[facility] on above:Order Comment: Specimen Type: BLOOD SPECIMENOrdering Facility: [facility] Address:[address] [place], [place] [address]Performed By: #### 39407-1 ####[facility] LABIA [id number] [place], [place] [address]Ikdpezjl granulocytes (Bld) [#/Vol]10*3/uLNormal<0.10 [facility] on above:Order Comment: Specimen Type: BLOOD SPECIMENOrdering Facility: [facility] Address:[address] [place], [place] [address]Performed By: #### 49311-5 ####[facility] LABCLIA [id number] [place], [place] [address]Mgbybzky granulocytes/100 WBC (Bld)0.4 %NormalProMedica Memorial Hospital on above: Order Comment: Specimen Type: BLOOD SPECIMENOrdering Facility: [facility] Address:[address] [place], [place] [address]Performed By: #### 47621- 8 ####[facility] LABCLIA [id number] [place], [place] [address]Vfsnjnfqvsg (Bld) [#/Vol]0.53 10*3/uLLow1.00-4.00 [facility] on above:Order Comment: Specimen Type: BLOOD SPECIMENOrdering Facility: [facility] Address:[address] [place], [place] [address]Performed By: #### 01954-6 ####[facility] LABCLIA [id number] [place], [place] [address]Pgumiiirjpj/100 WBC (Bld)11.7 %NormalProMedica Memorial Hospital on above:Order Comment: Specimen Type: BLOOD SPECIMENOrdering Facility: [facility] Address:[address] [place], [place] [address]Performed By: #### 77545-9 ####[facility] LABCLIA [id number] [place], [place] [address]DKF (RBC) [Entitic mass]28.1 gjSnljaf57.0-34.0[facility] on above:Order Comment: Specimen Type: BLOOD SPECIMENOrdering Facility: [facility] Address:[address] [place], [place] [address]Performed By: #### 31870-8 ####[facility] LABCLIA [id number] [place], [place] [address]HQPH (RBC) [Mass/Vol]31.7 g/vJZbnlxn41.5-36.0[facility] on above: Order Comment: Specimen Type: BLOOD SPECIMENOrdering Facility: [facility] Address:[address] [place], [place] [address]Performed By: #### 14000- 8 ####[facility] LABCLIA [id number] [place], [place] [address]KTB (RBC) [Entitic vol]88.6 vZDqeeve28.0-100.0[facility] on above:Order Comment: Specimen Type: BLOOD SPECIMENOrdering Facility: [facility] Address:[address] [place], [place] [address]Performed By: #### 80248-0 ####[facility] LABCLIA [id number] [place], [place] [address]Kiwydzdsl (Bld) [#/Vol]0.96 10*3/uLHigh<0.87[facility] on above:Order Comment: Specimen Type: BLOOD SPECIMENOrdering Facility: [facility] Address:[address] [place], [place] [address]Performed By: #### 56667- 8 ####[facility] LABCLIA [id number] [place], [place] [address]Jowafiqed/100 WBC (Bld)21.1 %NormalProMedica Memorial Hospital on above:Order Comment: Specimen Type: BLOOD SPECIMENOrdering Facility: [facility] Address:[address] [place], [place] [address]Performed By: #### 04001-4 ####[facility] LABCLIA [id number] [place], [place] [address]Dmydvjgxflg (Bld) [#/Vol]2.84 10*3/uLNormal1.45-7.50[facility] on above:Order Comment: Specimen Type: BLOOD SPECIMENOrdering Facility: [facility] Address:[address] [place], [place] [address]Performed By: #### 88004-9 ####[facility] LABCLIA [id number] [place], [place] [address]Upptuqbafgi/100 WBC (Bld)62.6 %NormalProMedica Memorial Hospital on above:Order Comment: Specimen Type: BLOOD SPECIMENOrdering Facility: [facility] Address:[address] [place], [place] [address]Performed By: #### 59198-8 ####[facility] LABCLIA [id number] [place], [place] [address]Ziaqtoalu RBC (Bld) [#/Vol] 10*3/uLNormal<0.01[facility] on above:Order Comment: Specimen Type: BLOOD SPECIMENOrdering Facility: [facility] Address:[address] [place], [place] [address]Performed By: #### 41592-1 ####[facility] LABCLIA [id number] [place], [place] [address]Esxdtnokk RBC/100 WBC (Bld) [Ratio]0.0 /100 WBCNormal [facility] on above:Order Comment: Specimen Type: BLOOD SPECIMENOrdering Facility: [facility] Address:[address] [place], [place] [address]Performed By: #### 21068-4 ####[facility] LABIA [id number] [place], [place] [address]Dbpykrsk mean volume (Bld) [Entitic vol]10.0 fLNormal9.0-12.7CM[facility] on above:Order Comment: Specimen Type: BLOOD SPECIMENOrdering Facility: [facility] Address:[address] [place] [address] Performed By: #### 20950-8 ####[facility] LABCLIA [id number] [place], [place] [address]Wgjdswkgc (Bld) [#/Vol]223 10*3/hSDdcjkp456-066DjhyswcqvProMedica Memorial Hospital on above:Order Comment: Specimen Type: BLOOD SPECIMENOrdering Facility: [facility] Address:[address] [place], [place] [address]Performed By: #### 52799-3 ####[facility] LABCLIA [id number] [place], [place] [address]AOS (Bld) [#/Vol]3.60 10*6/uLLow4.20-6.00[facility] on above:Order Comment: Specimen Type: BLOOD SPECIMENOrdering Facility: [facility] Address:[address] [place] [address]Obgjeqwto By: #### 40167-7 ####[facility] LABCLIA [id number] [place], [place] [address]MVK (Bld) [#/Vol]4.54 10*3/uL Normal3.70-11.00[facility] Medical CenterComment on above:Order Comment: Specimen Type: BLOOD SPECIMENOrdering Facility: [facility] Address:[address] [place] [address]Ztggsdwok By: #### 14452-2 ####[facility] LABCLIA [id number] [place], [place] [address]GVX CBC W AUTO DIFF BLDon 10-71-1182Crncwuzmg/100 WBC (Bld)0.9 %[facility] BASOPHILS # BLD AUTO0.04NILivingston Regional Hospital DIFFERENTIAL METHOD BLDAutoNOMSullivan County Memorial Hospital EOSINOPHIL # BLD AUTO0.15NINFSaint Luke's Health System LYMPHOCYTES # BLD AUTO0.53LowSaint Luke's Health System MONOCYTES # BLD AUTO0.96HighNILivingston Regional Hospital NEUTROPHILS # BLD AUTO2.84[facility] NRBC # BLD AUTO<0.01NILivingston Regional Hospital NRBC/100 WBC BLD-RTO0/100 WBCSaint Luke's Health System PLATELET # BLD NLZL542XCKARanken [facility] PMV BLD AUTO10 fL9.0 - 12.7 fLSaint Luke's Health System WBC # BLD AUTO4.54NOCox NorthEosinophils/100 WBC (Bld)3.3 %[facility] HealthcareErythrocyte distribution width (RBC) [Ratio]14.8 %11.5 - 15.0 %NOMS HealthcareHematocrit (Bld) [Volume fraction]31.9 %Low39.0 - 51.0 % NOM HealthcareHemoglobin (Bld) [Mass/Vol]10.1 g/dLLow13.0 - 17.0 g/dLCameron Regional Medical Center GRANULOCYTES # BLD AUTO<0.03NINFCameron Regional Medical Center GRANULOCYTES/LEUK NFR BLD AUTO0.4 %[facility] CenterInterpretation and review of laboratory resultsAbnormalNorthwest Medical CenterLymphocytes/100 WBC (Bld)11.7 %[facility] HealthcareH (RBC) [Entitic mass]28.1 pg26.0 - 34.0 pgCitizens Memorial HealthcareHC (RBC) [Mass/Vol]31.7 g/dL30.5 - 36.0 g/dLCitizens Memorial HealthcareV (RBC) [Entitic vol]88.6 fL 80.0 - 100.0 fLNorthwest Medical CenterMonocytes/100 WBC (Bld)21.1 %[facility] Neutrophils/100 WBC (Bld)62.6 %[facility] Medical CenterRBC (Bld) [#/Vol]3.6 10*6/uLLow 4.20 - 6.00 m/uLMOUNTAIN VIEW HOSPITAL HealthcareSpecimen Type: BLOOD SPECIMEN [facility] Address: [address] [place] [address] Original Ordering Provider: ITZEL CARO [facility] on 13-61-5066Htitfdzcxozd A [Mass/Vol]250.3 ng/mLHigh<187.0[facility] on above:Order Comment: Specimen Type: BLOOD SPECIMENOrdering Facility: [facility] Address:[address] [place], [place] [address]Result Comment: The Chromogranin A test was performed using the Savorfull CgA II KRYPTOR method. Results obtained with different assay methods or kits cannot be used interchangeably.Performed By: #### 9811-1 ####[facility] LABCLIA [id number] [facility] CENTERQMKWLAGZFSH01HZHXSFEKV, [place] [address] [place] OF AMERICAComprehensive metabolic 2000 panelon 14-12-6856Zawotuw [Mass/Vol]3.9 g/dLNormal3.9-4.9CM[facility] on above:Order Comment: Specimen Type: BLOOD SPECIMENOrdering Facility: [facility] Address:[address] [place], [place] [address]Performed By: #### 98684- 8 ####[facility] LABCLIA [id number] [place] [address]YVA [Catalytic activity/Vol]203 U/ZOafp96-536ObfljkyrhProMedica Memorial Hospital on above:Order Comment: Specimen Type: BLOOD SPECIMENOrdering Facility: [facility] Address:[address] [place], [place] [address]Performed By: #### 45626-2 ####[facility] LABCLIA [id number] [place], [place] [address]SQP [Catalytic activity/Vol]11 U/HZuwvyp70-92XcitudnmtProMedica Memorial Hospital on above:Order Comment: Specimen Type: BLOOD SPECIMENOrdering Facility: [facility] Address:[address] [place], [place] [address]Performed By: #### 15109- 8 ####[facility] LABCLIA [id number] ETHAN BEASLEYHONORHE[facility] MEDICAL CENTERTRACIMONTGOMERY, [place] [address]Lcajb gap [Moles/Vol]10 mmol/LNormal8-15[facility] on above:Order Comment: Specimen Type: BLOOD SPECIMENOrdering Facility: [facility] Address:[address] [place], [place] [address]Performed By: #### 48797-8 ####[facility] LABCLIA [id number] [place] [address]QHT [Catalytic activity/Vol]22 U/ANytcts08-80XpmewybphProMedica Memorial Hospital on above:Order Comment: Specimen Type: BLOOD SPECIMENOrdering Facility: [facility] Address:[address] [place], [place] [address]Performed By: #### 40400-8 ####[facility] LABIA [id number] ETHAN LEVINHONORHEALTH SC[facility] OS[facility] [place] [address] Bilirubin [Mass/Vol]0.6 mg/dLNormal0.2-1.3CM[facility] on above:Order Comment: Specimen Type: BLOOD SPECIMENOrdering Facility: [facility] Address:[address] [place], [place] [address]Performed By: #### 18391-8 ####[facility] LABCLIA [id number] [facility] [place], [place] [address]Gzkhzto [Mass/Vol]8.6 mg/dLNormal8.5-10.2CM[facility] on above:Order Comment: Specimen Type: BLOOD SPECIMENOrdering Facility: [facility] Address:[address] [place], [place] [address]Performed By: #### 72691-4 ####[facility] LABCLIA [id number] [facility]ITALMARCO [place], [place] [address]Ltoktgcv [Moles/Vol]106 mmol/FZriesm17-934WyrreulkoProMedica Memorial Hospital on above: Order Comment: Specimen Type: BLOOD SPECIMENOrdering Facility: [facility] Address:[address] [place], [place] [address]Performed By: #### 85497- 8 ####[facility] LABCLIA [id number] [facility] [place], [place] [address]RW[address] [Moles/Vol]19 mmol/HTyo37-02FhfkcefbwProMedica Memorial Hospital on above:Order Comment: Specimen Type: BLOOD SPECIMENOrdering Facility: [facility] Address:[address] [place], [place] [address]Performed By: #### 75899-3 ####[facility] LABCLIA [id number] [place], [place] [address]Jxcdtrxnyf [Mass/Vol]1.02 mg/dL Normal0.73-1.22[facility] on above:Order Comment: Specimen Type: BLOOD SPECIMENOrdering Facility: [facility] Address:[address] [place], [place] [address]Performed By: #### 66140-2 ####[facility] LABCLIA [id number] [facility] RAMOSDECATUR MORGAN HOSPITALOrenMONTGOMERY, [place] [address]lIWJnk SerPlBld CKD-EPI 736653 mL/min/1.73m???Normal>=60 [facility] on above:Order Comment: Specimen Type: BLOOD SPECIMENOrdering Facility: [facility] Address:[address] [place], [place] [address]Oyuzyw Comment: Estimated Glomerular Filtration Rate (eGFR) is calculated using the 2020 CKD-EPI creatinine equation. This equation utilizes serum creatinine, sex, and age as parameters. The creatinine assay has traceable calibration to isotope dilution-mass spectrometry. Refer to KDIGO guidelines for clinical interpretation. In patients with unstable renal function, e.g. those with acute kidney injury, the eGFR may not accurately reflect actual GFR.Performed By: #### 80809-4 ####[facility] LABIA [id number] [place], [place] [address]Medmfro [Mass/Vol]134 mg/yIQolk38-10RtigghfcxProMedica Memorial Hospital on above:Order Comment: Specimen Type: BLOOD SPECIMENOrdering Facility: [facility] Address:[address] [place], [place] [address]Result Comment: The [place] Diabetes Association (ADA) provides guidance for cutoff values for fast ing glucose and random glucose. The ADA defines fasting as no caloric intake for at least 8 hours. Fasting plasma glucose results between 100 to 125 mg/dL indicate increased risk for diabetes (prediabetes).Fasting plasma glucose results greater than or equal to 126 mg/dL meet the criteria for diagnosis of diabetes. In the absence of unequivocal hyperglycemia, results should be confirmed by repeattesting. In a patient with classic symptoms of hyperglycemia or hyperglycemic crisis, random plasmaglucose results greater than or equal to 200 mg/dL meet the criteria for diagnosis of diabetes.Reference: Standards of Medical Care in Diabetes 2016, [place] [employer]. Diabetes Care. 2016.39(Suppl 1).Performed By: #### 11631-8 ####[facility] LABIA [id number] [place], [place] [address]Ruxhrzzte [Moles/Vol]4.2 mmol/LNormal3.7-5.1CM[facility] on above: Order Comment: Specimen Type: BLOOD SPECIMENOrdering Facility: [facility] Address:[address] [place], [place] [address]Performed By: #### 49429- 8 ####[facility] LABCLIA [id number] [place], [place] [address]Fjvgowo [Mass/Vol]6.6 g/dLNormal6.3-8.0[facility] on above:Order Comment: Specimen Type: BLOOD SPECIMENOrdering Facility: [facility] Address:[address] [place], [place] [address]Performed By: #### 41345-0 ####[facility] LABCLIA [id number] [place], [place] [address]Ogwncg [Moles/Vol]135 mmol/LLow 136-144[facility] on above:Order Comment: Specimen Type: BLOOD SPECIMENOrdering Facility: [facility] Address:[address] [place], [place] [address]Performed By: #### 86157-5 ####[facility] LABCLIA [id number] [place], [place] [address]Scav nitrogen [Mass/Vol]11 mg/dLNormal9-24[facility] on above: Order Comment: Specimen Type: BLOOD SPECIMENOrdering Facility: [facility] Address:[address] [place], [place] [address]Performed By: #### 12965- 8 ####[facility] LABCLIA [id number] [place], [place] [address]Vfmqlsr SerPl-mCncon 45-03-2471Hvpucru [Mass/Vol]165.0 pg/mLHigh<115.0[facility] on above:Order Comment: Specimen Type: BLOOD SPECIMENOrdering Facility: [facility] Address:[address] [place], [place] [address]Result Comment: The Gastrin test was performed using the Siemens Immulite chemiluminescent immunometric method. Results obtained with different assay methods or kits cannot be used interchangeably.Performed By: #### 2333-3 ####[facility] LABCLIA [id number] [address] OF MAGRUDER HOSPITALSEROTONIN BLDon 64-72-2690WEYIXKXIE FLSEN1042 ng/dSTaiw03-032AbnwvyaavProMedica Memorial Hospital on above:Order Comment: Specimen Type: BLOOD SPECIMENOrdering Facility: [facility] Address:[address] [place], [place] [address]Result Comment: TEST INFORMATION: Serotonin, SerumThis test was developed and its performance characteristicsdetermined by [employer]. It has not been cleared orapproved by the [place] Food and Drug Administration. This test wasperformed in a CLIA certified laboratory and is intended forclinical purposes.Performed By: [facility] Aek[address] [place] [address]Ohcgzghvwk Director: Chapin Hollis MD, PhDCLIA Number: [id number] By: #### SERTON ####[facility]ENTERIA [id number] [place], [place] [address]UMJ W Auto Differential panel (Bld)on 03-09-0300Zarvrccfi (Bld) [#/Vol]0.04 10*3/uLNormal<0.11[facility] on above:Order Comment: Specimen Type: BLOOD SPECIMENOrdering Facility: [facility] Address:[address] [place], [place] [address]Performed By: #### 66531-8 ####[facility] LABCLIA [id number] [place], [place] [address]Xndmdhiya/100 WBC (Bld)0.6 % NormalProMedica Memorial Hospital on above:Order Comment: Specimen Type: BLOOD SPECIMENOrdering Facility: [facility] Address:[address] [place], [place] [address]Performed By: #### 92452-8 ####[facility] LABCLIA [id number] [place] [address] Differential cell count method Nom (Bld)AutoNormalCWayne HealthCare Main Campus Comment on above:Order Comment: Specimen Type: BLOOD SPECIMENOrdering Facility: [facility] Address:[address] [place] [address] Performed By: #### 36860-6 ####[facility] LABCLIA [id number] [place], [place] [address]Xzosxlsorlo (Bld) [#/Vol]0.17 10*3/uLNormal<0.46[facility] on above:Order Comment: Specimen Type: BLOOD SPECIMENOrdering Facility: [facility] Address:[address] [place], [place] [address]Performed By: #### 13937-6 ####[facility] LABIA [id number] [place], [place] [address]Phjhtkwmfpk/100 WBC (Bld)2.5 %NormalProMedica Memorial Hospital on above:Order Comment: Specimen Type: BLOOD SPECIMENOrdering Facility: [facility] Address:[address] [place], [place] [address]Performed By: #### 01059-3 ####[facility] LABIA [id number] [place], [place] [address]Zvliekpjqfc distribution width (RBC) [Ratio]15.3 %High11.5-15.0[facility] on above:Order Comment: Specimen Type: BLOOD SPECIMENOrdering Facility: [facility] Address:[address] [place], [place] [address]Performed By: #### 08900- 8 ####[facility] LABIA [id number] [place], [place] [address]Jhuyeyiefi (Bld) [Volume fraction]32.0 %Low39.0-51.0 [facility] on above:Order Comment: Specimen Type: BLOOD SPECIMENOrdering Facility: [facility] Address:[address] [place], [place] [address]Performed By: #### 46051-4 ####[facility] LABIA [id number] [place], [place] [address]Ygmbosspwz (Bld) [Mass/Vol]10.1 g/dLLow13.0-17.0[facility] on above:Order Comment: Specimen Type: BLOOD SPECIMENOrdering Facility: [facility] Address:[address] [place], [place] [address]Performed By: #### 08898- 8 ####[facility] LABCLIA [id number] [place], [place] [address]Fmjsnqrk granulocytes (Bld) [#/Vol]0.03 10*3/uLNormal <0.10[facility] on above:Order Comment: Specimen Type: BLOOD SPECIMENOrdering Facility: [facility] Address:[address] [place], [place] [address]Performed By: #### 47462-7 ####[facility] LABCLIA [id number] [place], [place] [address]Kltewgxe granulocytes/100 WBC (Bld)0.4 %[facility] on above: Order Comment: Specimen Type: BLOOD SPECIMENOrdering Facility: [facility] Address:[address] [place], [place] [address]Performed By: #### 11733- 8 ####[facility] LABCLIA [id number] [place], [place] [address]Ukhwbeolgzj (Bld) [#/Vol]0.42 10*3/uLLow1.00-4.00 [facility] on above:Order Comment: Specimen Type: BLOOD SPECIMENOrdering Facility: [facility] Address:[address] [place], [place] [address]Performed By: #### 58497-7 ####[facility] LABIA [id number] [place], [place] [address]Tqcmwbloczi/100 WBC (Bld)6.1 %NormalProMedica Memorial Hospital on above:Order Comment: Specimen Type: BLOOD SPECIMENOrdering Facility: [facility] Address:[address] [place], [place] [address]Performed By: #### 52651-4 ####[facility] LABCLIA [id number] [place], [place] [address]IYJ (RBC) [Entitic mass]28.9 yzTkjqam22.0-34.0[facility] on above:Order Comment: Specimen Type: BLOOD SPECIMENOrdering Facility: [facility] Address:[address] [place], [place] [address]Performed By: #### 10249-8 ####[facility] LABCLIA [id number] [place], [place] [address]QCQM (RBC) [Mass/Vol]31.6 g/lPWsnxlz56.5-36.0[facility] on above: Order Comment: Specimen Type: BLOOD SPECIMENOrdering Facility: [facility] Address:[address] [place], [place] [address]Performed By: #### 27492- 8 ####[facility] LABIA [id number] [place], [place] [address]VZG (RBC) [Entitic vol]91.4 dEVjvccq36.0-100.0[facility] on above:Order Comment: Specimen Type: BLOOD SPECIMENOrdering Facility: [facility] Address:[address] [place], [place] [address]Performed By: #### 59016-1 ####[facility] LABIA [id number] [place], [place] [address]Etiorazfu (Bld) [#/Vol]0.81 10*3/uLNormal<0.87[facility] on above:Order Comment: Specimen Type: BLOOD SPECIMENOrdering Facility: [facility] Address:[address] [place], [place] [address]Performed By: #### 31522- 8 ####[facility] LABIA [id number] [place], [place] [address]Lkzkrmpkj/100 WBC (Bld)11.8 %NormalProMedica Memorial Hospital on above:Order Comment: Specimen Type: BLOOD SPECIMENOrdering Facility: [facility] Address:[address] [place], [place] [address]Performed By: #### 55555-0 ####[facility] LABCLIA [id number] [place], [place] [address]Ghdmmdlaymq (Bld) [#/Vol]5.42 10*3/uLNormal1.45-7.50[facility] on above:Order Comment: Specimen Type: BLOOD SPECIMENOrdering Facility: [facility] Address:[address] [place], [place] [address]Performed By: #### 84749-7 ####[facility] LABCLIA [id number] [place], [place] [address]Pczqqhxgrul/100 WBC (Bld)78.6 %NormalProMedica Memorial Hospital on above:Order Comment: Specimen Type: BLOOD SPECIMENOrdering Facility: [facility] Address:[address] [place], [place] [address]Performed By: #### 80200-5 ####[facility] LABCLIA [id number] [place], [place] [address]Tjsdskbvw RBC (Bld) [#/Vol] 10*3/uLNormal<0.01[facility] on above:Order Comment: Specimen Type: BLOOD SPECIMENOrdering Facility: [facility] Address:[address] [place], [place] [address]Performed By: #### 84632-1 ####[facility] LABCLIA [id number] [place], [place] [address]Dlsyqfelr RBC/100 WBC (Bld) [Ratio]0.0 /100 WBCNormal [facility] on above:Order Comment: Specimen Type: BLOOD SPECIMENOrdering Facility: [facility] Address:[address] [place], [place] [address]Performed By: #### 49046-2 ####[facility] LABCLIA [id number] [place], [place] [address]Psutimgx mean volume (Bld) [Entitic vol]9.3 fLNormal9.0-12.7CM[facility] on above:Order Comment: Specimen Type: BLOOD SPECIMENOrdering Facility: [facility] Address:[address] [place] [address] Performed By: #### 03243-0 ####[facility] LABCLIA [id number] [place], [place] [address]Qgzxwwtyc (Bld) [#/Vol]348 10*3/fPZzezco025-204DguboczywProMedica Memorial Hospital on above:Order Comment: Specimen Type: BLOOD SPECIMENOrdering Facility: [facility] Address:[address] [place], [place] [address]Performed By: #### 14686-0 ####[facility] LABCLIA [id number] [place], [place] [address]IKK (Bld) [#/Vol]3.50 10*6/uLLow4.20-6.00[facility] on above:Order Comment: Specimen Type: BLOOD SPECIMENOrdering Facility: [facility] Address:[address] [place], [place] [address]Performed By: #### 57906-5 ####[facility] LABCLIA [id number] [place], [place] [address]SUM (Bld) [#/Vol]6.89 10*3/uL Normal3.70-11.00[facility] on above:Order Comment: Specimen Type: BLOOD SPECIMENOrdering Facility: [facility] Address:[address] [place], [place] [address]Performed By: #### 48626-8 ####[facility] LABCLIA [id number] [place], [place] [address]GEY CBC W AUTO DIFF BLDon 15-25-4298Hwlfnxozi/100 WBC (Bld)0.6 %[facility] BASOPHILS # BLD AUTO0.04NILivingston [facility] Hospital DIFFERENTIAL METHOD BLDAutoNOMSullivan County Memorial Hospital EOSINOPHIL # BLD AUTO0.17NILivingston [facility] Hospital LYMPHOCYTES # BLD AUTO0.42LowSaint Luke's Health System MONOCYTES # BLD AUTO0.81NILiving[facility] Hospital NEUTROPHILS # BLD AUTO5.42[facility] NRBC # BLD AUTO<0.01NILivingston [facility] Hospital NRBC/100 WBC BLD-RTO0/100 WBCSaint Luke's Health System PLATELET # BLD HACA325GDXXSaint Luke's Health System PMV BLD AUTO9.3 fL9.0 - 12.7 fLSaint Luke's Health System WBC # BLD AUTO6.89NOCox NorthEosinophils/100 WBC (Bld)2.5 %[facility] Medical CenterErythrocyte distribution width (RBC) [Ratio]15.3 %High 11.5 - 15.0 %[facility] Medical CenterHematocrit (Bld) [Volume fraction]32 %Low39.0 - 51.0 %[facility] Medical CenterHemoglobin (Bld) [Mass/Vol]10.1 g/dLLow13.0 - 17.0 g/dLCameron Regional Medical Center GRANULOCYTES # BLD AUTO0.03NIRegional Hospital of [facility] GRANULOCYTES/LEUK NFR BLD AUTO0.4 %[facility] Medical CenterInterpretation and review of laboratory resultsAbnormalNorthwest Medical CenterLymphocytes/100 WBC (Bld)6.1 %[facility] HealthcareH (RBC) [Entitic mass]28.9 pg26.0 - 34.0 pgCitizens Memorial HealthcareHC (RBC) [Mass/Vol]31.6 g/dL30.5 - 36.0 g/dLCitizens Memorial HealthcareV (RBC) [Entitic vol]91.4 fL 80.0 - 100.0 fLNorthwest Medical CenterMonocytes/100 WBC (Bld)11.8 %[facility] Neutrophils/100 WBC (Bld)78.6 %[facility] Medical CenterRBC (Bld) [#/Vol]3.5 10*6/uLLow 4.20 - 6.00 m/uLMOUNTAIN VIEW HOSPITAL HealthcareSpecimen Type: BLOOD SPECIMEN [facility] Address: [address] [place] [address] Original Ordering Provider: ROSELYN ELISELafayette Regional Health CenterOVSPon 06-85-9473FMOUAUTlsjtzTrzymggzm Clinic ClevelandCgA SerPl-mCncon 03-10-2025 Chromogranin A [Mass/Vol]270.3 ng/mLHigh<187.0[facility] on above:Order Comment: Specimen Type: BLOOD SPECIMENOrdering Facility: [facility] Address:[address] [place], [place] [address]Result Comment: The Chromogranin A test was performed using the Savorfull CgA II KRYPTOR method. Results obtained with different assay methods or kits cannot be used interchangeably.Performed By: #### 9811-1 ####[facility] LABCLIA [id number] [place] [address] [place] OF AMERICAComprehensive metabolic 2000 panelon 67-09-9034Qwtjeow [Mass/Vol]3.8 g/dL Low3.9-4.9CM[facility] on above:Order Comment: Specimen Type: BLOOD SPECIMENOrdering Facility: [facility] Address:[address] [place], [place] [address]Performed By: #### 22719-6 ####[facility] LABCLIA [id number] [place] [address] ALP [Catalytic activity/Vol]177 U/QNgtz55-499GvfkbzhvpProMedica Memorial Hospital on above:Order Comment: Specimen Type: BLOOD SPECIMENOrdering Facility: [facility] Address:[address] [place] [address] Performed By: #### 99494-2 ####[facility] LABCLIA [id number] [place], [place] [address]BST [Catalytic activity/Vol]14 U/IGtyxmm33-64NgzccbhnlProMedica Memorial Hospital on above:Order Comment: Specimen Type: BLOOD SPECIMENOrdering Facility: [facility] Address:[address] [place], [place] [address]Performed By: #### 12575-5 ####[facility] LABCLIA [id number] [place] [address] Anion gap [Moles/Vol]10 mmol/LNormal8-15[facility] on above:Order Comment: Specimen Type: BLOOD SPECIMENOrdering Facility: [facility] Address:[address] [place], [place] [address]Performed By: #### 72786-9 ####[facility] LABCLIA [id number] [place], [place] [address]WMZ [Catalytic activity/Vol]23 U/ZDajydj18-55 [facility] on above:Order Comment: Specimen Type: BLOOD SPECIMENOrdering Facility: [facility] Address:[address] [place], [place] [address]Performed By: #### 47239-2 ####[facility] LABCLIA [id number] [place], [place] [address]Aejjmwdqb [Mass/Vol]0.7 mg/dLNormal0.2-1.3CM[facility] on above:Order Comment: Specimen Type: BLOOD SPECIMENOrdering Facility: [facility] Address:[address] [place], [place] [address]Performed By: #### 38099- 8 ####[facility] LABCLIA [id number] [facility] [place], [place] [address]Gnpudtt [Mass/Vol]8.6 mg/dLNormal8.5-10.2CM[facility] on above:Order Comment: Specimen Type: BLOOD SPECIMENOrdering Facility: [facility] Address:[address] [place], [place] [address]Performed By: #### 32502-6 ####[facility] LABCLIA [id number] [place], [place] [address]Iryihkqm [Moles/Vol]108 mmol/L Hoff72-347BgqqibohaProMedica Memorial Hospital on above:Order Comment: Specimen Type: BLOOD SPECIMENOrdering Facility: [facility] Address:[address] [place], [place] [address]Performed By: #### 42971-1 ####[facility] LABCLIA [id number] [place] [address] CO2 [Moles/Vol]19 mmol/SKhk08-91ByicebulzProMedica Memorial Hospital on above:Order Comment: Specimen Type: BLOOD SPECIMENOrdering Facility: [facility] Address:[address] [place], [place] [address]Performed By: #### 85110- 8 ####[facility] LABIA [id number] [place], [place] [address]Oxfsyinzqc [Mass/Vol]1.02 mg/dLNormal0.73-1.22[facility] on above:Order Comment: Specimen Type: BLOOD SPECIMENOrdering Facility: [facility] Address:[address] [place], [place] [address]Performed By: #### 97492-3 ####[facility] LABIA [id number] [place], [place] [address]eWLDya SerPlBld CKD-EPI 163795 mL/min/1.73m???Normal>=60[facility] on above:Order Comment: Specimen Type: BLOOD SPECIMENOrdering Facility: [facility] Address:[address] [place], [place] [address]Result Comment: Estimated Glomerular Filtration Rate (eGFR) is calculated using the 2020 CKD-EPI creatinine equation. This equation utilizes serum creatinine, sex, and age as parameters. The creatinine assay has traceable calibration to isotope dilution- mass spectrometry. Refer to KDIGO guidelines for clinical interpretation. In patients with unstable renal function, e.g. those with acute kidney injury, the eGFR may not accurately reflect actual GFR.Performed By: #### 07279-7 ####[facility] LABCLIA [id number] [place], [place] [address]Luvfzva [Mass/Vol]150 mg/xINrep18-58LadhqvussProMedica Memorial Hospital on above:Order Comment: Specimen Type: BLOOD SPECIMENOrdering Facility: [facility] Address:[address] [place] [address]Lnbkud Comment: The [place] Diabetes Association (ADA) provides guidance for cutoff values for fasting glucose and random glucose. The ADA defines fasting as no caloric intake for at least 8 hours. Fasting plasma glucose results between 100 to 125 mg/dL indicate increased risk for diabetes (prediab etes).Fasting plasma glucose results greater than or equal to 126 mg/dL meet the criteria for diagnosis of diabetes. In the absence of unequivocal hyperglycemia, results should be confirmed by repeattesting. In a patient with classic symptoms of hyperglycemia or hyperglycemic crisis, random plasmaglucose results greater than or equal to 200 mg/dL meet the criteria for diagnosis of diabetes.Reference: Standards of Medical Care in Diabetes 2016, [place] [employer]. Diabetes Care. 2016.39(Suppl 1).Performed By: #### 35295-5 ####[facility] LABCLIA [id number] [place], [place] [address]Hfhyksbbj [Moles/Vol]4.3 mmol/LNormal3.7-5.1CM[facility] on above:Order Comment: Specimen Type: BLOOD SPECIMENOrdering Facility: [facility] Address:[address] [place] [address]Snlcwngnf By: #### 73046-3 ####[facility] LABCLIA [id number] [place], [place] [address]Eaniozl [Mass/Vol]6.3 g/dLNormal6.3-8.0[facility] on above:Order Comment: Specimen Type: BLOOD SPECIMENOrdering Facility: [facility] Address:[address] [place], [place] [address]Performed By: #### 77152- 8 ####[facility] LABCLIA [id number] [place], [place] [address]Cflvrt [Moles/Vol]137 mmol/QYkxnfz410-097NgraqmtxaProMedica Memorial Hospital on above:Order Comment: Specimen Type: BLOOD SPECIMENOrdering Facility: [facility] Address:[address] [place], [place] [address]Performed By: #### 47386-1 ####[facility] LABCLIA [id number] [place], [place] [address]Pqqo nitrogen [Mass/Vol]9 mg/dL Normal9-24[facility] on above:Order Comment: Specimen Type: BLOOD SPECIMENOrdering Facility: [facility] Address:[address] [place], [place] [address]Performed By: #### 95443-8 ####[facility] LABCLIA [id number] [place] [address] Gastrin SerPl-mCncon 06-88-9645Mxzuqbz [Mass/Vol]59.7 pg/mLNormal<115.0[facility] on above:Order Comment: Specimen Type: BLOOD SPECIMENOrdering Facility: [facility] Address:[address] [place], [place] [address]Result Comment: The Gastrin test was performed using the Siemens Immulite chemiluminescent immunometric method. Results obtained with different assay methods or kits cannot be used interchangeably.Performed By: #### 2333-3 ####[facility] LABCLIA [id number] [place] [address] [place] OF AMERICAMETANEPHRINES, FREE PLASMAon 64-35-7207LKLHEPMTBHAS, LMKMSI94 pg/rLGlcpqy97-03LuaczllsfProMedica Memorial Hospital on above:Order Comment: Specimen Type: BLOOD SPECIMENOrdering Facility: [facility] Address:[address] [place], [place] [address]Result Comment: Reference Ranges:Hypertensive adult > or = 18 yrs old: 12- 72 pg/mLNormotensive adult > or = 18 yrs old: 12-67 pg/mLNormotensive children < 18 yrs old: 10-95 pg/mLPerformed By: #### PMETAN ####[facility] LABCLIA [id number] [place] [address] [place] MCLAREN FLINTORMETANEPHRINE, HTWFUV763 pg/gUNvzr40-883FypkclwkeProMedica Memorial Hospital on above:Order Comment: Specimen Type: BLOOD SPECIMENOrdering Facility: [facility] Address:[address] [place], [place] [address]Result Comment: Reference Ranges:Hypertensive adult > or = 18 yrs old: 24- 145 pg/mLNormotensive adult > or = 18 yrs old: 18-101 pg/mLNormotensive children < 18 yrs old: 22-83 pg/mLMethyldopamay cause false elevation of normetanephrine levels in this assay. If patient is on methyldopa, interpret results with caution.Performed By: #### PMETAN ####[facility] LABCLIA [id number] [place] [address] [place]QUE SEROTONIN BLDon 61-72-7739UHOMECBJE JOFDW8814 ng/uBVztx51-315IpsqcuvxgProMedica Memorial Hospital on above:Order Comment: Specimen Type: BLOOD SPECIMENOrdering Facility: [facility] Address:[address] [place], [place] [address]Result Comment: TEST INFORMATION: Serotonin, SerumThis test was developed and its performance characteristicsdetermined by [facility]. It has not been cleared orapproved by the [place] Food and Drug Administration. This test wasperformed in a CLIA certified laboratory and is intended forclinical p urposes.Performed By: [facility] [place], [place] [address]Vuvpxdowti Director: Chapin Hollis MD, PhDCLIA Number: [id number] Performed By: #### SERTON ####[facility] LABORATORIESIA [id number] [place], [place] [address]STEHMQSBMR INTESTINAL POLYPEPTIDE (VIP), PLASMAon 16-80-9659OBIDBDPESU INTESTINAL POLYPEPTIDE<20.2Poemvw6.0-89.1CM[facility] on above:Order Comment: Specimen Type: BLOOD SPECIMENOrdering Facility: [facility] Address:[address] [place], [place] [address]Result Comment: This test was developed and its performance characteristicsdetermined by [facility]. It has not been cleared orapproved by the U.S. Food and Drug Administration. 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 EXAM CATEGORY: Subsequent treatment strategy. TECHNIQUE: Radiopharmaceutical [...] some pathology. * CT Dose-Length Product (DLP): 323 mGy*cm * CT Dose Reduction Employed: Yes * Injection site: Right Hand * Injected activity: 4.4 mCi * Uptake Time: 64 minutes * Radiopharmaceutical: Ga-68 Dotatate COMPARISON: 12/08/2024 CORRELATION: CT abdomen and pelvis 02/23/2025 RESULT: REFERENCES: Dotatate uptake serves as a surrogate marker for somatostatin receptor 2 (SSTR2) expression. All reported standardized uptake values represent maximum SUV (SUVmax) per body weight, unless otherwise specified. SUV Reference Values: * Background Liver: SUVmax 4.4 * Background Spleen: SUVmax 11.0 Localizer Images: No additional findings. HEAD AND NECK: Head: No radiotracer avid lesion or mass effect in the intracranial compartment. Aerodigestive Tract: No radiotracer avid lesion. Lymph Nodes: Tracer avid left supraclavicular lymphadenopathy stable in size measuring up to 0.8 cm slightly decreased in uptake SUV max 19.0 previously 36.4. Neck Soft Tissues: No radiotracer avid thyroid nodule. CHEST: Lungs and Pleura: Left apical nodular opacity 1.7 cm with SUV max 1.6 previously 2.2. Otherwise no suspicious tracer avid lung lesions. No pleural effusions. Lymph Nodes: No radiotracer avid lymphadenopathy. Mediastinum: No radiotracer avid mass. Cardiovascular: Blood pool activity. No pericardial effusion. Normal heart size. Chest Wall: No radiotracer avid soft tissue lesion. ABDOMEN AND PELVIS: Hepatobiliary: No radiotracer avid lesion. No measurable mass. Spleen: Diffuse tracer avid pancreatic uptake SUV max 30.8 in the head region previously 41.5. Pancreas: No radiotracer avid lesion. Adrenals: No radiotracer avid nodule. Urinary Tract: Physiologic radiotracer excretion in the renal collecting systems and urinary bladder. No hydronephrosis. GI Tract: Focal uptake in the distal ileum SUV max 10.5 previously 13.7. Increased uptake in the duodenum mass SUV max 36.1 previously 42.3. Peritoneum/lymph nodes: Tracer avid calcified right mesenteric node 1.8 cm SUV max 28.3 previously 37.2. Left para-aortic lymphadenopathy SUV max 20.0 previously 29.4. Aortocaval lymphadenopathy is seen max 22.3 previously 27.9. Vasculature: Blood pool activity. Pelvic Organs: No radiotracer avid lesion. MUSCULOSKELETAL: Bones: Tracer avid osseous lesions again seen including posterior right ilium SUV max 16.7 previously 22.1, left iliac crest SUV max 4.0 previously 6.2, posterior left fifth rib with SUV max 3.7 previously 5.2. Soft Tissues: Tracer avid soft tissue nodule of the left base of the penis 1.3 cm with SUV max 21.3 previously 30.3. Small left ischemia. Nodule with SUV max 4.1 previously 5.6 (4:281). IMPRESSION: PRIMARY DISEASE SITE: * Grossly stable tracer avid distal ileum lesion. ANILA DISEASE: * Grossly stable tracer avid mesenteric and retroperitoneal lymphadenopathy. METASTATIC DISEASE: * Grossly stable to minimally decreased uptake metastatic disease in the duodenum, left supraclavicular lymphadenopathy and pelvic soft tissue metastasis. * Redemonstration of diffuse tracer avid pancreatic uptake. ADDITIONAL FINDINGS: * Stable left apical nodular opacity with mild uptake. Krenning Score: 4 * Score 0: No abnormal uptake * Score 1: Very low uptake * Score 2: Uptake less than or equal to the liver * Score 3: Uptake greater than liver but less than spleen * Score 4: Uptake greater than the spleen Splicer Machine Operator: MIKY Transcribe Date/Time: Mar 09 2025 10:44A Dictated by : LUIS FELIPE MONROE MD This examination was interpreted and the report reviewed and electronically signed by: LUIS FELIPE MONROE MD on Mar 09 2025 11:08AM EST [id number]^AGFA_IDC^SI^ACNCCFRadiology, Radiologist, - 03/09/2025 * * *Final Report* * * DATE OF EXAM: Mar 09 2025 10:05AM [facility] 0094 - NM PET/CT NEUROENDOCRINE WB / PROCEDURE REASON: multiple diagnoses * * * * Physician Interpretation * * * * EXAMINATION: SOMATOSTATIN RECEPTOR PET-CT CLINICAL HISTORY: 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 EXAM CATEGORY: Subsequent treatment strategy. TECHNIQUE: Radiopharmaceutical [...] some pathology. * CT Dose-Length Product (DLP): 323 mGy*cm * CT Dose Reduction Employed: Yes * Injection site: Right Hand * Injected activity: 4.4 mCi * Uptake Time: 64 minutes * Radiopharmaceutical: Ga-68 Dotatate COMPARISON: 12/08/2024 CORRELATION: CT abdomen and pelvis 02/23/2025 RESULT: REFERENCES: Dotatate uptake serves as a surrogate marker for somatostatin receptor 2 (SSTR2) expression. All reported standardized uptake values represent maximum SUV (SUVmax) per body weight, unless otherwise specified. SUV Reference Values: * Background Liver: SUVmax 4.4 * Background Spleen: SUVmax 11.0 Localizer Images: No additional findings. HEAD AND NECK: Head: No radiotracer avid lesion or mass effect in the intracranial compartment. Aerodigestive Tract: No radiotracer avid lesion. Lymph Nodes: Tracer avid left supraclavicular lymphadenopathy stable in size measuring up to 0.8 cm slightly decreased in uptake SUV max 19.0 previously 36.4. Neck Soft Tissues: No radiotracer avid thyroid nodule. CHEST: Lungs and Pleura: Left apical nodular opacity 1.7 cm with SUV max 1.6 previously 2.2. Otherwise no suspicious tracer avid lung lesions. No pleural effusions. Lymph Nodes: No radiotracer avid lymphadenopathy. Mediastinum: No radiotracer avid mass. Cardiovascular: Blood pool activity. No pericardial effusion. Normal heart size. Chest Wall: No radiotracer avid soft tissue lesion. ABDOMEN AND PELVIS: Hepatobiliary: No radiotracer avid lesion. No measurable mass. Spleen: Diffuse tracer avid pancreatic uptake SUV max 30.8 in the head region previously 41.5. Pancreas: No radiotracer avid lesion. Adrenals: No radiotracer avid nodule. Urinary Tract: Physiologic radiotracer excretion in the renal collecting systems and urinary bladder. No hydronephrosis. GI Tract: Focal uptake in the distal ileum SUV max 10.5 previously 13.7. Increased uptake in the duodenum mass SUV max 36.1 previously 42.3. Peritoneum/lymph nodes: Tracer avid calcified right mesenteric node 1.8 cm SUV max 28.3 previously 37.2. Left para-aortic lymphadenopathy SUV max 20.0 previously 29.4. Aortocaval lymphadenopathy is seen max 22.3 previously 27.9. Vasculature: Blood pool activity. Pelvic Organs: No radiotracer avid lesion. MUSCULOSKELETAL: Bones: Tracer avid osseous lesions again seen including posterior right ilium SUV max 16.7 previously 22.1, left iliac crest SUV max 4.0 previously 6.2, posterior left fifth rib with SUV max 3.7 previously 5.2. Soft Tissues: Tracer avid soft tissue nodule of the left base of the penis 1.3 cm with SUV max 21.3 previously 30.3. Small left ischemia. Nodule with SUV max 4.1 previously 5.6 (4:281). IMPRESSION: PRIMARY DISEASE SITE: * Grossly stable tracer avid distal ileum lesion. ANILA DISEASE: * Grossly stable tracer avid mesenteric and retroperitoneal lymphadenopathy. METASTATIC DISEASE: * Grossly stable to minimally decreased uptake metastatic disease in the duodenum, left supraclavicular lymphadenopathy and pelvic soft tissue metastasis. * Redemonstration of diffuse tracer avid pancreatic uptake. ADDITIONAL FINDINGS: * Stable left apical nodular opacity with mild uptake. Krenning Score: 4 * Score 0: No abnormal uptake * Score 1: Very low uptake * Score 2: Uptake less than or equal to the liver * Score 3: Uptake greater than liver but less than spleen * Score 4: Uptake greater than the spleen Splicer Machine Operator: MIKY Transcribe Date/Time: Mar 09 2025 10:44A Dictated by : LUIS FELIPE MONROE MD This examination was interpreted and the report reviewed and electronically signed by: LUIS FELIPE MONROE MD on Mar 09 2025 11:08AM EST [id number]^[id number]^SI^ACN [facility] PET/CT NEUROENDOCRINE WBNormalCKettering Health Hamilton Panel InformationOrdered By: Radiologist Radiology on [id number] Medical Center Work Phone: no Panel Informationon 25-64-0639Rksxcgwcr Study observation (narrative)[facility] for tau proteinon 03-09-2025 IMPRESSION: PRIMARY DISEASE SITE: * Grossly stable tracer avid distal ileum lesion. ANILA DISEASE: * Grossly stable tracer avid mesenteric and retroperitoneal lymphadenopathy. METASTATIC DISEASE: * Grossly stable to minimally decreased uptake metastatic disease in the duodenum, left supraclavicular lymphadenopathy and pelvic soft tissue metastasis. * Redemonstration of diffuse tracer avid pancreatic uptake. ADDITIONAL FINDINGS: * Stable left apical nodular opacity with mild uptake. Krenning Score: 4 * Score 0: No abnormal uptake * Score 1: Very low uptake * Score 2: Uptake less than or equal to the liver * Score 3: Uptake greater than liver but less than spleen * Score 4: Uptake greater than the spleen Splicer Machine Operator: [facility] Transcribe Date/Time: Mar 09 2025 10:44A Dictated by : LUIS FELIPE MONROE MD This examination was interpreted and the report reviewed and electronically signed by: LUIS FELIPE MONROE MD on Mar 09 2025 11:08AM EST DIVISION OF RADIOLOGY* * *Final Report* * * DATE OF EXAM: Mar 09 2025 10:05AM [facility] 0094 - [place] PET/CT NEUROENDOCRINE WB / PROCEDURE REASON: multiple diagnoses * * * * Physician Interpretation * * * * EXAMINATION: SOMATOSTATIN RECEPTOR PET-CT CLINICAL HISTORY: 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 EXAM CATEGORY: Subsequent treatment strategy. TECHNIQUE: Radiopharmaceutical [...] some pathology. * CT Dose-Length Product (DLP): 323 mGy*cm * CT Dose Reduction Employed: Yes * Injection site: Right Hand * Injected activity: 4.4 mCi * Uptake Time: 64 minutes * Radiopharmaceutical: Ga-68 Dotatate COMPARISON: 12/08/2024 CORRELATION: CT abdomen and pelvis 02/23/2025 RESULT: REFERENCES: Dotatate uptake serves as a surrogate marker for somatostatin receptor 2 (SSTR2) expression. All reported standardized uptake values represent maximum SUV (SUVmax) per body weight, unless otherwise specified. SUV Reference Values: * Background Liver: SUVmax 4.4 * Background Spleen: SUVmax 11.0 Localizer Images: No additional findings. HEAD AND NECK: Head: No radiotracer avid lesion or mass effect in the intracranial compartment. Aerodigestive Tract: No radiotracer avid lesion. Lymph Nodes: Tracer avid left supraclavicular lymphadenopathy stable in size measuring up to 0.8 cm slightly decreased in uptake SUV max 19.0 previously 36.4. Neck Soft Tissues: No radiotracer avid thyroid nodule. CHEST: Lungs & Pleura: Left apical nodular opacity 1.7 cm with SUV max 1.6 previously 2.2. Otherwise no suspicious tracer avid lung lesions. No pleural effusions. Lymph Nodes: No radiotracer avid lymphadenopathy. Mediastinum: No radiotracer avid mass. Cardiovascular: Blood pool activity. No pericardial effusion. Normal heart size. Chest Wall: No radiotracer avid soft tissue lesion. ABDOMEN AND PELVIS: Hepatobiliary: No radiotracer avid lesion. No measurable mass. Spleen: Diffuse tracer avid pancreatic uptake SUV max 30.8 in the head region previously 41.5. Pancreas: No radiotracer avid lesion. Adrenals: No radiotracer avid nodule. Urinary Tract: Physiologic radiotracer excretion in the renal collecting systems and urinary bladder. No hydronephrosis. GI Tract: Focal uptake in the distal ileum SUV max 10.5 previously 13.7. Increased uptake in the duodenum mass SUV max 36.1 previously 42.3. Peritoneum/lymph nodes: Tracer avid calcified right mesenteric node 1.8 cm SUV max 28.3 previously 37.2. Left para-aortic lymphadenopathy SUV max 20.0 previously 29.4. Aortocaval lymphadenopathy is seen max 22.3 previously 27.9. Vasculature: Blood pool activity. Pelvic Organs: No radiotracer avid lesion. MUSCULOSKELETAL: Bones: Tracer avid osseous lesions again seen including posterior right ilium SUV max 16.7 previously 22.1, left iliac crest SUV max 4.0 previously 6.2, posterior left fifth rib with SUV max 3.7 previously 5.2. Soft Tissues: Tracer avid soft tissue nodule of the left base of the penis 1.3 cm with SUV max 21.3 previously 30.3. Small left ischemia. Nodule with SUV max 4.1 previously 5.6 (4:281). 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 EXAM CATEGORY: Subsequent treatment strategy. TECHNIQUE: Radiopharmaceutical [...] some pathology. * CT Dose-Length Product (DLP): 323 mGy*cm * CT Dose Reduction Employed: Yes * Injection site: Right Hand * Injected activity: 4.4 mCi * Uptake Time: 64 minutes * Radiopharmaceutical: Ga-68 Dotatate COMPARISON: 12/08/2024 CORRELATION: CT abdomen and pelvis 02/23/2025 RESULT: REFERENCES: Dotatate uptake serves as a surrogate marker for somatostatin receptor 2 (SSTR2) expression. All reported standardized uptake values represent maximum SUV (SUVmax) per body weight, unless otherwise specified. SUV Reference Values: * Background Liver: SUVmax 4.4 * Background Spleen: SUVmax 11.0 Localizer Images: No additional findings. HEAD AND NECK: Head: No radiotracer avid lesion or mass effect in the intracranial compartment. Aerodigestive Tract: No radiotracer avid lesion. Lymph Nodes: Tracer avid left supraclavicular lymphadenopathy stable in size measuring up to 0.8 cm slightly decreased in uptake SUV max 19.0 previously 36.4. Neck Soft Tissues: No radiotracer avid thyroid nodule. CHEST: Lungs & Pleura: Left apical nodular opacity 1.7 cm with SUV max 1.6 previously 2.2. Otherwise no suspicious tracer avid lung lesions. No pleural effusions. Lymph Nodes: No radiotracer avid lymphadenopathy. Mediastinum: No radiotracer avid mass. Cardiovascular: Blood pool activity. No pericardial effusion. Normal heart size. Chest Wall: No radiotracer avid soft tissue lesion. ABDOMEN AND PELVIS: Hepatobiliary: No radiotracer avid lesion. No measurable mass. Spleen: Diffuse tracer avid pancreatic uptake SUV max 30.8 in the head region previously 41.5. Pancreas: No radiotracer avid lesion. Adrenals: No radiotracer avid nodule. Urinary Tract: Physiologic radiotracer excretion in the renal collecting systems and urinary bladder. No hydronephrosis. GI Tract: Focal uptake in the distal ileum SUV max 10.5 previously 13.7. Increased uptake in the duodenum mass SUV max 36.1 previously 42.3. Peritoneum/lymph nodes: Tracer avid calcified right mesenteric node 1.8 cm SUV max 28.3 previously 37.2. Left para-aortic lymphadenopathy SUV max 20.0 previously 29.4. Aortocaval lymphadenopathy is seen max 22.3 previously 27.9. Vasculature: Blood pool activity. Pelvic Organs: No radiotracer avid lesion. MUSCULOSKELETAL: Bones: Tracer avid osseous lesions again seen including posterior right ilium SUV max 16.7 previously 22.1, left iliac crest SUV max 4.0 previously 6.2, posterior left fifth rib with SUV max 3.7 previously 5.2. Soft Tissues: Tracer avid soft tissue nodule of the left base of the penis 1.3 cm with SUV max 21.3 previously 30.3. Small left ischemia. Nodule with SUV max 4.1 previously 5.6 (4:281). IMPRESSION IMPRESSION: PRIMARY DISEASE SITE: * Grossly stable tracer avid distal ileum lesion. ANILA DISEASE: * Grossly stable tracer avid mesenteric and retroperitoneal lymphadenopathy. METASTATIC DISEASE: * Grossly stable to minimally decreased uptake metastatic disease in the duodenum, left supraclavicular lymphadenopathy and pelvic soft tissue metastasis. * Redemonstration of diffuse tracer avid pancreatic uptake. ADDITIONAL FINDINGS: * Stable left apical nodular opacity with mild uptake. Krenning Score: 4 * Score 0: No abnormal uptake * Score 1: Very low uptake * Score 2: Uptake less than or equal to the liver * Score 3: Uptake greater than liver but less than spleen * Score 4: Uptake greater than the spleen Splicer Machine Operator: [facility] Transcribe Date/Time: Mar 09 2025 10:44A Dictated by : LUIS FELIPE MONROE MD This examination was interpreted and the report reviewed and electronically signed by: LUIS FELIPE MONROE MD on Mar 09 2025 11:08AM EST [facility] panel Auto (Bld)on 08-36-4836Murpmsqasur distribution width (RBC) [Ratio]15.7 %High11.5-15.0[facility] on above:Order Comment: Specimen Type: BLOOD SPECIMENOrdering Facility: [facility] Address:[address] [place], [place] [address]Performed By: #### 67394- 2 ####[facility] LABCLIA [id number] [address] OF AMERICAHematocrit (Bld) [Volume fraction]29.2 %Low39.0-51.0[facility] on above:Order Comment: Specimen Type: BLOOD SPECIMENOrdering Facility: [facility] Address:[address] [place], [place] [address]Performed By: #### 21707- 2 ####[facility] LABIA [id number] [address]ETHemoglobin (Bld) [Mass/Vol]9.4 g/dLLow13.0-17.0[facility] on above:Order Comment: Specimen Type: BLOOD SPECIMENOrdering Facility: [facility] Address:[address] [place], [place] [address]Performed By: #### 77861-3 ####[facility] LABVERM[facility] [id number] [address] (RBC) [Entitic mass]28.7 pg Hkodwd16.0-34.0[facility] on above:Order Comment: Specimen Type: BLOOD SPECIMENOrdering Facility: [facility] Address:[address] [place], [place] [address]Performed By: #### 82621-4 ####[facility] [id number] [address]HC (RBC) [Mass/Vol]32.2 g/dL Qzpmwh29.5-36.0[facility] on above:Order Comment: Specimen Type: BLOOD SPECIMENOrdering Facility: [facility] Address:[address] [place], [place] [address]Performed By: #### 22999-2 ####[facility] LABVERM[facility] [id number] [address] (RBC) [Entitic vol]89.0 fL Livfxa65.0-100.0[facility] on above:Order Comment: Specimen Type: BLOOD SPECIMENOrdering Facility: [facility] Address:[address] [place], [place] [address]Performed By: #### 13168-2 ####[facility] LABVERMONT [facility] [id number] [address]ucleated RBC (Bld) [#/Vol] 10*3/uLNormal<0.01[facility] on above:Order Comment: Specimen Type: BLOOD SPECIMENOrdering Facility: [facility] Address:[address] [place], [place] [address]Performed By: #### 83106-1 ####[facility] LABCLIA [id number] [place] [address] [place] AMERICAPlatelet mean volume (Bld) [Entitic vol]10.8 fLNormal9.0-12.7CMary [facility] on above: Order Comment: Specimen Type: BLOOD SPECIMENOrdering Facility: [facility] Address:[address] [place], [place] [address]Performed By: #### 40737- 2 ####[facility] LABCLIA [id number] [place] [address] [place] AMERICAPlatelets (Bld) [#/Vol]165 10*3/uBHkieeq566-455CdiqljcbsProMedica Memorial Hospital on above:Order Comment: Specimen Type: BLOOD SPECIMENOrdering Facility: [facility] Address:[address] [place], [place] [address]Performed By: #### 13408-3 ####[facility] LABCLIA [id number] [place] [address] [place] AMERICARBC (Bld) [#/Vol]3.28 10*6/uLLow 4.20-6.00[facility] on above:Order Comment: Specimen Type: BLOOD SPECIMENOrdering Facility: [facility] Address:[address] [place], [place] [address]Performed By: #### 59192-4 ####[facility] LABCLIA [id number] [place] [id number] [place] OF AMERICAWBC (Bld) [#/Vol]6.13 10*3/uLNormal3.70-11.00[facility] on above:Order Comment: Specimen Type: BLOOD SPECIMENOrdering Facility: [facility] Address:[address] [place], [place] [address]Performed By: #### 43619-5 ####[facility] LABCLIA [id number] [place] [address] [place] AMERICACNDSon 50-05-2122SCKUXkcrkrSquvyniak Clinic ClevelandCONSULT PROGon 96-62-5738FCEFKII PROGNormalKettering Health Prebleprehensive metabolic 2000 panelon 92-68-0651Tyharyf [Mass/Vol]3.4 g/dLLow3.9-4.9ClevelKettering Health Main Campus on above:Order Comment: Specimen Type: BLOOD SPECIMENOrdering Facility: [facility] Address:[address] [place], [place] [address]Performed By: #### 14522-0 ####[facility] LABCLIA [id number] [place] [address] [place] ALP [Catalytic activity/Vol]116 U/QLnoi30-284MbgjlwhsiProMedica Memorial Hospital on above:Order Comment: Specimen Type: BLOOD SPECIMENOrdering Facility: [facility] Address:[address] [place] [address] Performed By: #### 26713-0 ####[facility] LABCLIA [id number] [place] [address] [place] ALT [Catalytic activity/Vol]33 U/AAwsuuc88-45FfafvepwnProMedica Memorial Hospital on above:Order Comment: Specimen Type: BLOOD SPECIMENOrdering Facility: [facility] Address:[address] [place] [address] Performed By: #### 25544-7 ####[facility] LABIA [id number] [place] [address] [place] Anion gap [Moles/Vol]11 mmol/LNormal8-15[facility] on above:Order Comment: Specimen Type: BLOOD SPECIMENOrdering Facility: [facility] Address:[address] [place], [place] [address]Performed By: #### 35097-3 ####[facility] LABCLIA [id number] [place] [address] [place] AMERICAAST [Catalytic activity/Vol]40 U/RLfvuio67-42YhtmikqoqProMedica Memorial Hospital on above:Order Comment: Specimen Type: BLOOD SPECIMENOrdering Facility: [facility] Address:[address] [place], [place] [address]Performed By: #### 96866- 8 ####[facility] LABIA [id number] [place] [address] [place] AMERICABilirubin [Mass/Vol]0.8 mg/dL Normal0.2-1.3CM[facility] on above:Order Comment: Specimen Type: BLOOD SPECIMENOrdering Facility: [facility] Address:[address] [place], [place] [address]Performed By: #### 06671-7 ####[facility] LABIA [id number] [place] [address] [place] AMERICACalcium [Mass/Vol]8.2 mg/dLLow8.5-10.2CM[facility] on above:Order Comment: Specimen Type: BLOOD SPECIMENOrdering Facility: [facility] Address:[address] [place], [place] [address]Performed By: #### 45736-6 ####[facility] LABIA [id number] [place] [id number] [place] Chloride [Moles/Vol]110 mmol/LZtna50-897VkhwoutioProMedica Memorial Hospital on above:Order Comment: Specimen Type: BLOOD SPECIMENOrdering Facility: [facility] Address:[address] [place], [place] [address]Performed By: #### 61936-3 ####[facility] LABIA [id number] [place] [id number] [place] AMERICACO2 [Moles/Vol]19 mmol/WRqz08-76AzhladpqdProMedica Memorial Hospital on above:Order Comment: Specimen Type: BLOOD SPECIMENOrdering Facility: [facility] Address:[address] [place], [place] [address]Performed By: #### 95613-1 ####[facility] LABCLIA [id number] [facility] [place] [address] [place] AMERICACreatinine [Mass/Vol]1.14 mg/dLNormal0.73-1.22[facility] on above:Order Comment: Specimen Type: BLOOD SPECIMENOrdering Facility: [facility] Address:[address] [place], [place] [address]Performed By: #### 23613-5 ####[facility] LABIA [id number] [address] OF MAGRUDER HOSPITALCreatinine and Glomerular filtration rate.predicted panel (S/P/Bld)70 mL/min/1.73m???Normal>=60[facility] on above:Order Comment: Specimen Type: BLOOD SPECIMENOrdering Facility: [facility] Address:[address] [place], [place] [address]Result Comment: Estimated Glomerular Filtration Rate (eGFR) is calculated using the 2020 CKD-EPI cre atinine equation. This equation utilizes serum creatinine, sex, and age as parameters. The creatinine assay has traceable calibration to isotope dilution- mass spectrometry. Refer to KDIGO guidelines for clinical interpretation. In patients with unstable renal function, e.g. those with acute kidney injury, the eGFR may not accurately reflect actual GFR.Performed By: #### 98919-3 ####[facility] LABIA [id number] [facility]ALK [id number] [place], [place] [address] [place] AMERICAGlucose [Mass/Vol]88 mg/dLNormal 74-99[facility] on above:Order Comment: Specimen Type: BLOOD SPECIMENOrdering Facility: [facility] Address:[address] [place], [place] [address]Result Comment: The [place] Diabetes Association (ADA) provides guidance for cutoff [...] unequivocal hyperglycemia, results should be confirmed by repeattesting. In a patient with classic symptoms of hyperglycemia or hyperglycemic crisis, random plasmaglucose results greater than or equal to 200 mg/dL meet the criteria for diagnosis of diabetes.Reference: Standards of Medical Care in Diabetes 2016, [place] [employer]. Diabetes Care. 2016.39(Suppl 1).Performed By: #### 37388-5 ####[facility] LABIA [id number] [place] [address] [place] AMERICAPotassium [Moles/Vol]4.4 mmol/L Normal3.7-5.1CM[facility] on above:Order Comment: Specimen Type: BLOOD SPECIMENOrdering Facility: [facility] Address:[address] [place], [place] [address]Performed By: #### 72872-5 ####[facility] LABIA [id number] [place] [address] [place] AMERICAProtein [Mass/Vol]5.4 g/dLLow6.3-8.0[facility] on above:Order Comment: Specimen Type: BLOOD SPECIMENOrdering Facility: [facility] Address:[address] [place], [place] [address]Performed By: #### 84529-6 ####[facility] LABIA [id number] [place] [address] [place] Sodium [Moles/Vol]140 mmol/QQqimmi572-596YmqwitcfrProMedica Memorial Hospital on above:Order Comment: Specimen Type: BLOOD SPECIMENOrdering Facility: [facility] Address:[address] [place], [place] [address]Performed By: #### 23976-7 ####[facility] LABCLIA [id number] [place] [id number] [place] STATES OF MAGRUDER HOSPITALUrea nitrogen [Mass/Vol]9 mg/dLNormal9-24[facility] on above:Order Comment: Specimen Type: BLOOD SPECIMENOrdering Facility: [facility] Address:[address] [place], [place] [address]Performed By: #### 91011- 8 ####[facility] [id number] [place] [id number] [facility] CENTERUTRITIONon 31-08-9977EIRBBWIBA NormalUniversity Hospitals Samaritan Medical CenterPT panel Coag (PPP)on 79-74-3850SLV Coag (PPP) [Relative time]1.0 {INR}Normal0.9-1.3CMary [facility] on above: Order Comment: Specimen Type: BLOOD SPECIMENOrdering Facility: [facility] Address:[address] [place], [place] [address]Result Comment: Vitamin K Antagonist (VKA) Therapeutic Range: INR 2 to 3 (Target INR of 2.5)Note: For patients treated with VKA drugs, such as warfarin, the [place] [employer] 2012 Guideline recommends a therapeutic INR range of 2 to 3 (target INR of 2.5). This recommendation includes high-risk patients with antiphospholipid syndrome with previous arterial or venous thromboembolism, current-generation mechanical or bioprosthetic aortic heart valve replacement.Note: Patients with mechanical aortic valve replacement and additional risk factors for thromboembolic events (atrialfibrillation, previous thromboembolism, LV dysfunction, hypercoagulable conditions) or an older gene ration mechanical AVR (i.e., ball in-Cage) or any mechanical MVR should have a INR therapeutic range of 2.5 to 3.5 (target INR of 3).Lizy GH, et al. Chest 2012, 141:7S-47SNishimura RA, et al. [facility] 2017, 70: 252-289Performed By: #### 04079-2 ####[facility] [id number] [place] [id number] [place] [facility] MEDICAL CENTERPT Coag (PPP) [Time] 11.0 sNormal9.7-13.0[facility] on above:Order Comment: Specimen Type: BLOOD SPECIMENOrdering Facility: [facility] Address:[address] [place], [place] [address]Performed By: #### 01206-1 ####[facility] LABIA [id number] [place] [address] [facility] OF AMERICATHERAPY NTon 37-15-6066WSPZENC NT NormalGlenbeigh Hospital POSTPROC EVALon 44-82-1537LWOX POSTPROC EVALNormalCMercy Health St. [facility] PRE-OPon 29-91-9865GDXT PRE-OPNormal [facility] Samaritan Medical CenterARTERIAL BLOOD GASES WITH IONIZED MAGNESIUMon 78-06-8659Oxeb deficit (BldA) [Moles/Vol]-6 mmol/PJhn-2-0SlurrsqfiProMedica Memorial Hospital on above:Order Comment: Specimen Type: ARTERIAL BLOOD SPECIMENOrdering Facility: [facility]ALTHAddress: [address] [place], [place] [address]Performed By: #### ALLMG ####[facility] LABCLIA [id number] [address] STATES OF AMERICACalcium.ionized (Bld) [Mass/Vol]1.18 mmol/LNormal1.08-1.30[facility] on above:Order Comment: Specimen Type: ARTERIAL BLOOD SPECIMENOrdering Facility: [facility]ALTHAddress: [address] [place], [place] [address]Performed By: #### ALLMG ####[facility] LABCLIA [id number] [place] [address] [place] AMERICACalcium.ionized adjusted to pH 7.4 (BldA) [Moles/Vol]1.14 mmol/LNormal 1.08-1.30[facility] on above:Order Comment: Specimen Type: ARTERIAL BLOOD SPECIMENOrdering Facility: [facility] Address: [address] [place] [address] [place], [place] [address]Performed By: #### ALLMG ####[facility] LABCLIA [id number] [facility]ENTERD AVENUEU.S. NAVAL HOSPITALK [address] STATES OF MAGRUDER HOSPITALCarboxyhemoglobin (BldA) [Mass fraction]1.4 %Normal0.0-2.0[facility] on above:Order Comment: Specimen Type: ARTERIAL BLOOD SPECIMENOrdering Facility: TRIHEALTHAddress: [facility] [place], [place] [address]Result Comment: Carboxyhemoglobin Reference Range for Smokers: 2.0-8.0%Performed By: #### ALLMG ####[facility] LABCLIA [id number] [facility]D [facility] SOUTHSIDEK [address] STATES OF MAGRUDER HOSPITALCO2 (Bld) [Partial pressure]38 mm TyPhlvra40-65KidtfzdknProMedica Memorial Hospital on above:Order Comment: Specimen Type: ARTERIAL BLOOD SPECIMENOrdering Facility: [facility] Address: [address] [place], [place] [address]Performed By: #### ALLMG ####[facility] LABCLIA [id number] [facility]OSPITALK [address] STATES OF MAGRUDER HOSPITALCO2 adjusted to patient's actual temperature (Bld) [Partial pressure]38 vnYmLgsohi02-25IbavdeobdUniversity Hospitals Samaritan [facility] Center Comment on above:Order Comment: Specimen Type: ARTERIAL BLOOD SPECIMENOrdering Facility: TRIHEALTHAddress: [facility] [place], [place] [address]Performed By: #### ALLMG ####[facility] LABCLIA [id number] [place] [id number] [place] Glucose [Mass/Vol]103 mg/cEVdceec79-545AnixlqaonProMedica Memorial Hospital on above:Order Comment: Specimen Type: ARTERIAL BLOOD SPECIMENOrdering Facility: TRIHEALTHAddress: [facility] [place] [address] Performed By: #### ALLMG ####[facility] LABCLIA [id number] [place] [id number] [place] OF AMERICAHCO3 (Bld) [Moles/Vol]19 mmol/RCty29-41PehmrjyyiProMedica Memorial Hospital on above:Order Comment: Specimen Type: ARTERIAL BLOOD SPECIMENOrdering Facility: TRIHEALTHAddress: [address] [place], [place] [address]Performed By: #### ALLMG ####[facility] LABCLIA [id number] [place] [address] [place] AMERICAHematocrit (Bld) [Volume fraction]25.0 %Low39.0-51.0[facility] on above:Order Comment: Specimen Type: ARTERIAL BLOOD SPECIMENOrdering Facility: TRIHEALTHAddress: [address] [facility] CENTERMarkell [place] [address]Performed By: #### ALLMG ####[facility] LABCLIA [id number] [place] [address] [place] AMERICAHemoglobin (Bld) [Mass/Vol]8.0 g/dLLow13.0-17.0[facility] on above:Order Comment: Specimen Type: ARTERIAL BLOOD SPECIMENOrdering Facility: TRIHEALTHAddress: [address] [place], [place] [address]Performed By: #### ALLMG ####[facility] LABCLIA [id number] [place] [address] [place] AMERICALactate [Moles/Vol]0.8 mmol/L Normal0.5-2.2CM[facility] on above:Order Comment: Specimen Type: ARTERIAL BLOOD SPECIMENOrdering Facility: [facility]ALTH Address: [address] [place], [place] [address]Performed By: #### ALLMG ####[facility] LABCLIA [id number] [facility] [address] [place] AMERICAMagnesium [Moles/Vol]0.45 mmol/L Normal0.45-0.60[facility] on above:Order Comment: Specimen Type: ARTERIAL BLOOD SPECIMENOrdering Facility: TRIHEALTHAddress: [address], [place], [place] [address]Kgnydbpuj By: #### ALLMG ####[facility] LABCLIA [id number] [address] AVENUEDESK L [address] [place] [address] [place] AMERICAMethemoglobin (Bld) [Mass fraction]1.3 %Normal0.0-1.5CM[facility] on above:Order Comment: Specimen Type: ARTERIAL BLOOD SPECIMENOrdering Facility: TRIHEALTHAddress: [address] [place] [id number] By: #### ALLMG ####[facility] LABCLIA [id number] [facility]ENTERD AVENUEU.S. NAVAL HOSPITALK [address] [address] [place] OF AMERICAOxygen (Bld) [Partial pressure] 250 mm TrEkqe08-07XeotxnrjkProMedica Memorial Hospital on above:Order Comment: Specimen Type: ARTERIAL BLOOD SPECIMENOrdering Facility: TRIHEALTHAddress: [address], [place] [address]Performed By: #### ALLMG ####[facility] LABCLIA [id number] [address] AVENUEDESK L [address] [place] [address] [place] AMERICAOxygen adjusted to patient's actual temperature (Bld) [Partial pressure]250 qtFkMfvf08-75DsxmkdniqProMedica Memorial Hospital on above:Order Comment: Specimen Type: ARTERIAL BLOOD SPECIMENOrdering Facility: TRIHEALTHAddress: [address], [place] [address]Tvfjuahgh By: #### ALLMG ####[facility] LABCLIA [id number] [facility]D AVENUEU.S. NAVAL HOSPITALK [address] [place] [address] [place] AMERICAOxyhemoglobin (BldA) [Mass fraction]97 %Emosvq50-37WwynpfoghProMedica Memorial Hospital on above:Order Comment: Specimen Type: ARTERIAL BLOOD SPECIMENOrdering Facility: TRIHEALTHAddress: [address], [place] [address]Dammhnksa By: #### ALLMG ####[facility] LABCLIA [id number] [address] [place] [address] [place] AMERICApH (Bld)7.32 [pH]Low7.35-7.45[facility]aritan Medical CenterCombeaumont hospital on above: Order Comment: Specimen Type: ARTERIAL BLOOD SPECIMENOrdering Facility: TRIHEALTHAddress: [address] [place] [address] Performed By: #### ALLMG ####[facility] LABCLIA [id number] [address] [place] [address] [place] AMERICApH adjusted to patient's actual temperature (Bld)7.32Low7.35-7.45[facility] Comment on above:Order Comment: Specimen Type: ARTERIAL BLOOD SPECIMENOrdering Facility: TRIHEALTHAddress: [address] [place] [address]Performed By: #### ALLMG ####[facility] LABCLIA [id number] [address] [place] [address] [place] Potassium [Moles/Vol]3.4 mmol/LLow3.5-5.0[facility] on above:Order Comment: Specimen Type: ARTERIAL BLOOD SPECIMENOrdering Facility: TRIHEALTHAddress: [address] [place] [address] Performed By: #### ALLMG ####[facility] LABCLIA [id number] [address] [place] [address] [place] AMERICASodium [Moles/Vol]141 mmol/ODqquwb077-269FdtccbdpcUniversity Hospitals Samaritan Medical CenterCombeaumont hospital on above: Order Comment: Specimen Type: ARTERIAL BLOOD SPECIMENOrdering Facility: TRIHEALTHAddress: [address] [place] [address] Performed By: #### ALLMG ####[facility] LABCLIA [id number] [address] [place] [address] [place] AMERICABRIEF OP NOTon 46-52-8344LDZHP OP NOTNormalCTriHealth [facility] Hospital panel Auto (Bld)on 38-87-2140Rdqpkwqncgq distribution width (RBC) [Ratio]15.9 %High11.5-15.0 [facility] on above:Order Comment: Specimen Type: BLOOD SPECIMENOrdering Facility: [facility]ALTH Address:[address] [place], [place] [address]Performed By: #### 95080-7 ####[facility] LABIA [id number] [place] [address] [place] AMERICAHematocrit (Bld) [Volume fraction]24.9 %Low39.0-51.0[facility] on above:Order Comment: Specimen Type: BLOOD SPECIMENOrdering Facility: [facility]ALTH Address:[address] [place], [place] [address]Performed By: #### 51324-5 ####[facility] [id number] [place] [address] [place] Hemoglobin (Bld) [Mass/Vol]7.9 g/dLLow13.0-17.0[facility] on above:Order Comment: Specimen Type: BLOOD SPECIMENOrdering Facility: [facility]ALTH Address:[address] [place] [address] Performed By: #### 20722-7 ####[facility] LABIA [id number] [place] [address] [place] MCH (RBC) [Entitic mass]28.6 brVnskgo00.0-34.0[facility] on above:Order Comment: Specimen Type: BLOOD SPECIMENOrdering Facility: [facility] Address:[address] [place] [address] Performed By: #### 53933-0 ####[facility] LABIA [id number] [place] [address] [place] MCHC (RBC) [Mass/Vol]31.7 g/nXWkjxkv12.5-36.0[facility] on above:Order Comment: Specimen Type: BLOOD SPECIMENOrdering Facility: [facility] Address:[address] [place] [address] Performed By: #### 06591-7 ####[facility] LABCLIA [id number] [place] [address] [place] MCV (RBC) [Entitic vol]90.2 bEAgtity03.0-100.0[facility] on above:Order Comment: Specimen Type: BLOOD SPECIMENOrdering Facility: [facility] Address:[address] [place] [address] Performed By: #### 14352-0 ####[facility] LABIA [id number] [place] [address] [place] Nucleated RBC (Bld) [#/Vol]10*3/uLNormal<0.01[facility] on above:Order Comment: Specimen Type: BLOOD SPECIMENOrdering Facility: [facility] Address:[address] [place] [address] Performed By: #### 79646-8 ####[facility] LABIA [id number] [place] [address] [place] Platelet mean volume (Bld) [Entitic vol]10.5 fLNormal9.0-12.7CM[facility] on above:Order Comment: Specimen Type: BLOOD SPECIMENOrdering Facility: [facility] Address:[address] [place], [place] [address]Performed By: #### 38011-8 ####[facility] LABCLIA [id number] [place] [address] [place] Platelets (Bld) [#/Vol]146 10*3/aHLiy250-392DylowqsllProMedica Memorial Hospital on above:Order Comment: Specimen Type: BLOOD SPECIMENOrdering Facility: [facility]ALTH Address:[address] [place], [place] [address]Performed By: #### 11992-8 ####[facility] LABCLIA [id number] [place] [address] [place] AMERICARBC (Bld) [#/Vol]2.76 10*6/uLLow4.20-6.00[facility] on above:Order Comment: Specimen Type: BLOOD SPECIMENOrdering Facility: [facility] Address:[address] [place], [place] [address]Performed By: #### 43215-5 ####[facility] [id number] [place] [address] [place] AMERICAWBC (Bld) [#/Vol]3.54 10*3/uLLow 3.70-11.00[facility] on above:Order Comment: Specimen Type: BLOOD SPECIMENOrdering Facility: [facility] Address:[address] [place], [place] [address]Performed By: #### 96381-4 ####[facility] [id number] [place] [address] [place] AMERICAErythrocyte distribution width (RBC) [Ratio]15.9 %High 11.5-15.0[facility] on above:Order Comment: Specimen Type: BLOOD SPECIMENOrdering Facility: [facility] Address:[address] [place], [place] [address]Performed By: #### 30986-1 ####[facility] [id number] [address] STATES AMERICAHematocrit (Bld) [Volume fraction]25.0 %Low39.0-51.0 [facility] on above:Order Comment: Specimen Type: BLOOD SPECIMENOrdering Facility: [facility] Address:[address] [place], [place] [address]Performed By: #### 09884-8 ####[facility] [id number] [place] [id number] [place] AMERICAHemoglobin (Bld) [Mass/Vol]8.1 g/dLLow13.0-17.0[facility] Comment on above:Order Comment: Specimen Type: BLOOD SPECIMENOrdering Facility: [facility] Address:[address] [place] [address] Performed By: #### 11451-4 ####[facility] LABIA [id number] [place] [address] [place] MCH (RBC) [Entitic mass]29.0 zaCyerxf21.0-34.0[facility] on above:Order Comment: Specimen Type: BLOOD SPECIMENOrdering Facility: [facility] Address:[address] [place] [address] Performed By: #### 90725-6 ####[facility] [id number] [place] [address] [place] MCHC (RBC) [Mass/Vol]32.4 g/wSTwdqoh38.5-36.0[facility] on above:Order Comment: Specimen Type: BLOOD SPECIMENOrdering Facility: [facility] Address:[address] [place] [address] Performed By: #### 78826-9 ####[facility]THWOODSIA [id number] [place] [address] [place] MCV (RBC) [Entitic vol]89.6 gOBuucvo46.0-100.0[facility] on above:Order Comment: Specimen Type: BLOOD SPECIMENOrdering Facility: [facility] Address:[address] [place] [address] Performed By: #### 46473-9 ####[facility] LABIA [id number] [place] [address] [place] Nucleated RBC (Bld) [#/Vol]10*3/uLNormal<0.01[facility] on above:Order Comment: Specimen Type: BLOOD SPECIMENOrdering Facility: [facility] Address:[address] [place] [address] Performed By: #### 08819-1 ####[facility] LABIA [id number] [place] [address] [place] Platelet mean volume (Bld) [Entitic vol]10.6 fLNormal9.0-12.7CM[facility] on above:Order Comment: Specimen Type: BLOOD SPECIMENOrdering Facility: [facility] Address:[address] [place], [place] [address]Performed By: #### 80328-4 ####[facility] LABIA [id number] [place] [address] [place] Platelets (Bld) [#/Vol]145 10*3/oLUtp565-381SqwyyjtxdProMedica Memorial Hospital on above:Order Comment: Specimen Type: BLOOD SPECIMENOrdering Facility: [facility] Address:[address] [place], [place] [address]Performed By: #### 43882-9 ####[facility] LABIA [id number] [place] [address] [place] AMERICARBC (Bld) [#/Vol]2.79 10*6/uLLow4.20-6.00[facility] on above:Order Comment: Specimen Type: BLOOD SPECIMENOrdering Facility: [facility] Address:[address] [place], [place] [address]Performed By: #### 51087-8 ####[facility] LABIA [id number] [place] [id number] [place] AMERICAWBC (Bld) [#/Vol]4.27 10*3/uL Normal3.70-11.00[facility] on above:Order Comment: Specimen Type: BLOOD SPECIMENOrdering Facility: [facility] Address:[address] [place], [place] [address]Performed By: #### 20922-5 ####[facility] LABCLIA [id number] [address] [place] [address] [place] AMERICACONSULTon 42-38-3865CJWXNJREovraw [facility] metabolic 2000 panelon 36-36-2565Uicxcuw [Mass/Vol]3.0 g/dLLow3.9-4.9[facility] on above:Order Comment: Specimen Type: BLOOD SPECIMENOrdering Facility: [facility] Address:[address] [place], [place] [address]Performed By: #### 51019- 8 ####[facility] LABCLIA [id number] [address] [place] [address] [place] AMERICAALP [Catalytic activity/Vol]107 U/RNbnsbc82-962FddbjszakProMedica Memorial Hospital on above:Order Comment: Specimen Type: BLOOD SPECIMENOrdering Facility: [facility] Address:[address] [place], [place] [address]Performed By: #### 64619-5 ####[facility] LABIA [id number] [address] [place] [address] [place] AMERICAALT [Catalytic activity/Vol]31 U/TAnoaar59-78UunkmqqdoProMedica Memorial Hospital on above:Order Comment: Specimen Type: BLOOD SPECIMENOrdering Facility: [facility] Address:[address] [place], [place] [address]Performed By: #### 71865-6 ####[facility] LABIA [id number] [address] [place] [address] [place] AMERICAAnion gap [Moles/Vol]10 mmol/LNormal8-15[facility] on above:Order Comment: Specimen Type: BLOOD SPECIMENOrdering Facility: [facility] Address:[address] [place], [place] [address]Performed By: #### 38728-1 ####[facility] LABIA [id number] [address] [place] [address] [place] AST [Catalytic activity/Vol]54 U/IFlbf83-89MbzbyhwssProMedica Memorial Hospital on above:Order Comment: Specimen Type: BLOOD SPECIMENOrdering Facility: [facility] Address:[address] [place], [place] [address]Performed By: #### 63482-6 ####[facility] LABCLIA [id number] [place] [address] [place] AMERICABilirubin [Mass/Vol] 0.6 mg/dLNormal0.2-1.3[facility] on above:Order Comment: Specimen Type: BLOOD SPECIMENOrdering Facility: [facility] Address:[address] [place], [place] [address]Performed By: #### 05822-4 ####[facility] LABIA [id number] [place] [address] [place] AMERICACalcium [Mass/Vol]7.7 mg/dLLow 8.5-10.2[facility] on above:Order Comment: Specimen Type: BLOOD SPECIMENOrdering Facility: [facility] Address:[address] [place], [place] [address]Performed By: #### 96238-4 ####[facility] LABCLIA [id number] [place] [id number] [place] AMERICAChloride [Moles/Vol]114 mmol/TIozj97-061XhtjnimqyProMedica Memorial Hospital on above:Order Comment: Specimen Type: BLOOD SPECIMENOrdering Facility: [facility] Address:[address] [place], [place] [address]Performed By: #### 20002-9 ####[facility] LABIA [id number] [place] [address] [place] CO2 [Moles/Vol]18 mmol/TWep64-84MmeedbbafProMedica Memorial Hospital on above:Order Comment: Specimen Type: BLOOD SPECIMENOrdering Facility: [facility] Address:[address] [place], [place] [address]Performed By: #### 41297- 8 ####[facility] LABIA [id number] [place] [address] [place] AMERICACreatinine [Mass/Vol]1.10 mg/dL Normal0.73-1.22[facility] on above:Order Comment: Specimen Type: BLOOD SPECIMENOrdering Facility: [facility] Address:[address] [place], [place] [address]Performed By: #### 21716-2 ####[facility] [id number] [place] [address] [place] AMERICACreatinine and Glomerular filtration rate.predicted panel (S/P/Bld)73 mL/min/1.73m???Normal>=60[facility] on above:Order Comment: Specimen Type: BLOOD SPECIMENOrdering Facility: [facility] Address:[address] [place], [place] [address]Result Comment: Estimated Glomerular Filtration Rate (eGFR) is calculated using the 2020 CKD-EPI creatinine equation. This equation utilizes serum creatinine, sex, and age as parameters. The creatinine assay has traceable calibration to isotope dilution-mass spectrometry. Refer to KDIGO guidelines for clinical interpretation. In patients with unstable renal function, e.g. those with acute kidney injury, the eGFR may not accurately reflect actual GFR.Performed By: #### 64485-9 ####[facility] LABIA [id number] [place] [id number] [place] AMERICAGlucose [Mass/Vol]99 mg/xMPweexw94-85PkvzbmzalProMedica Memorial Hospital on above:Order Comment: Specimen Type: BLOOD SPECIMENOrdering Facility: [facility] Address:[address] [place], [place] [address]Result Comment: The [place] Diabetes Association (ADA) provides guidance for cutoff values for fasting glucose and random glucose. The ADA defines fasting as no caloric intake for at least 8 hours. Fasting plasma glucose results between 100 to 125 mg/dL indicate increased risk for diabetes (prediabetes).Fasting plasma glucose results greater than or equal to 126 mg/dL meet the criteria for diagno sis of diabetes. In the absence of unequivocal hyperglycemia, results should be confirmed by repeattesting. In a patient with classic symptoms of hyperglycemia or hyperglycemic crisis, random plasmaglucose results greater than or equal to 200 mg/dL meet the criteria for diagnosis of diabetes.Reference: Standards of Medical Care in Diabetes 2016, [place] Diabetes Association. Diabetes Care. 2016.39(Suppl 1).Performed By: #### 85283-2 ####[facility] LABIA [id number] [place] [address] [place] AMERICAPotassium [Moles/Vol]3.7 mmol/LNormal3.7-5.1CWay[facility] Comment on above:Order Comment: Specimen Type: BLOOD SPECIMENOrdering Facility: [facility] Address:[address] [place] [address] Performed By: #### 99135-9 ####[facility] LABIA [id number] [place] [address] [place] Protein [Mass/Vol]4.7 g/dLLow6.3-8.0[facility] on above: Order Comment: Specimen Type: BLOOD SPECIMENOrdering Facility: [facility] Address:[address] [place], [place] [address]Performed By: #### 67822- 8 ####[facility]IA [id number] [address] STATES OF AMERICASodium [Moles/Vol]142 mmol/L Gcfxjb517-138EmtammpmlProMedica Memorial Hospital on above:Order Comment: Specimen Type: BLOOD SPECIMENOrdering Facility: [facility] Address:[address] [place], [place] [address]Performed By: #### 16774-7 ####[facility] LABIA [id number] [place] [id number] [place] AMERICAUrea nitrogen [Mass/Vol]12 mg/dLNormal9-24[facility] on above:Order Comment: Specimen Type: BLOOD SPECIMENOrdering Facility: [facility] Address:[address] [place], [place] [address]Performed By: #### 93530-6 ####[facility] LABCLIA [id number] [place] [id number] [place] AMERICAAlbumin [Mass/Vol]3.1 g/dLLow3.9-4.9[facility] on above:Order Comment: Specimen Type: BLOOD SPECIMENOrdering Facility: [facility] Address:[address] [place], [place] [address]Result Comment: Result rechecked.Performed By: #### 59906-0, 21587-7, 2324-2 ####[facility] LABCLIA [id number] VIL[place] [id number] [place] AMERICAALP [Catalytic activity/Vol]117 U/DEpdf37-712 [facility] on above:Order Comment: Specimen Type: BLOOD SPECIMENOrdering Facility: [facility] Address:[address] [place], [place] [address]Performed By: #### 49641-4, 67478-9, 2324-2 ####[facility] LABIA [id number] VIL[place] [id number] [place] AMERICAALT [Catalytic activity/Vol]35 U/QJtpqun01-03 [facility] on above:Order Comment: Specimen Type: BLOOD SPECIMENOrdering Facility: [facility] Address:[address] [place], [place] [address]Performed By: #### 01150-2, 79733-1, 2324-2 ####[facility] LABIA [id number] [address] [place] AMERICAAnion gap [Moles/Vol]11 mmol/LNormal8-15[facility] on above:Order Comment: Specimen Type: BLOOD SPECIMENOrdering Facility: [facility] Address:[address] [place], [place] [address]Performed By: #### 16774-7, 38147-1, 2323-2 ####[facility] LABCLIA [id number] [address] [place] AMERICAAST [Catalytic activity/Vol]71 U/DYyan95-10 [facility] on above:Order Comment: Specimen Type: BLOOD SPECIMENOrdering Facility: [facility] Address:[address] [place], [place] [address]Performed By: #### 15956-8, 20696-4, 2323- ####[facility] LABIA [id number] [address] [place] AMERICABilirubin [Mass/Vol]0.7 mg/dLNormal0.2-1.3 [facility] on above:Order Comment: Specimen Type: BLOOD SPECIMENOrdering Facility: [facility] Address:[address] [place], [place] [address]Performed By: #### 35434-2, 08451-3, 2323-09 ####[facility] LABIA [id number] VILLE [id number] [place] AMERICACalcium [Mass/Vol]8.0 mg/dLLow8.5-10.2[facility] on above:Order Comment: Specimen Type: BLOOD SPECIMENOrdering Facility: [facility] Address:[address] [place], [place] [address]Performed By: #### 33286-5, 09770-7, 2323-09 ####[facility] LABIA [id number] [address] [place] AMERICAChloride [Moles/Vol]112 mmol/UBfjp09-471FhyabnhrsProMedica Memorial Hospital on above:Order Comment: Specimen Type: BLOOD SPECIMENOrdering Facility: [facility] Address:[address] [place], [place] [address]Performed By: #### 96311-8, 18682-2, 2323-2 ####[facility] LABIA [id number] [address] [place] AMERICACO2 [Moles/Vol]18 mmol/TLfj91-52YikxipsrnProMedica Memorial Hospital on above:Order Comment: Specimen Type: BLOOD SPECIMENOrdering Facility: [facility] Address:[address] [place], [place] [address]Performed By: #### 73193-1, 81386-7, 2323-2 ####[facility] S[facility]THWOODSIA [id number] [address] [place] AMERICACreatinine [Mass/Vol]1.13 mg/dLNormal0.73-1.22[facility] on above:Order Comment: Specimen Type: BLOOD SPECIMENOrdering Facility: [facility] Address:[address] [place], [place] [address]Performed By: #### 58446-7, , 2323-09 ####[facility] [id number] [address] [place] AMERICACreatinine and Glomerular filtration rate.predicted panel (S/P/Bld)70 mL/min/1.73m???Normal>=60[facility] [facility] on [facility]: Order Comment: Specimen Type: BLOOD SPECIMENOrdering Facility: [facility] Address:[address] [place], [place] [address]Result Comment: Estimated Glomerular Filtration Rate (eGFR) is calculated using the 2020 CKD-EPI cre atinine equation. This equation utilizes serum creatinine, sex, and age as parameters. The creatinine assay has traceable calibration to isotope dilution- mass spectrometry. Refer to KDIGO guidelines for clinical interpretation. In patients with unstable renal function, e.g. those with acute kidney injury, the eGFR may not accurately reflect actual GFR.Performed By: #### 87299-4, 82178-8, 2323-2 ####[facility] LABVERM[facility] [id number] [place] [address] [place] AMERICAGlucose [Mass/Vol]148 mg/dLHigh 74-99[facility] on above:Order Comment: Specimen Type: BLOOD SPECIMENOrdering Facility: [facility] Address:[address] [place], [place] [address]Result Comment: The [place] Diabetes Association (ADA) provides guidance for cutoff [...] unequivocal hyperglycemia, results should be confirmed by repeattesting. In a patient with classic symptoms of hyperglycemia or hyperglycemic crisis, random plasmaglucose results greater than or equal to 200 mg/dL meet the criteria for diagnosis of diabetes.Reference: Standards of Medical Care in Diabetes 2016, [place] Diabetes Association. Diabetes Care. 2016.39(Suppl 1).Performed By: #### 72464- 9, 64576-9, 2324-2 ####[facility] LABCLIA [id number] [address] [place] AMERICAPotassium [Moles/Vol] 3.6 mmol/LLow3.7-5.1[facility] on above:Order Comment: Specimen Type: BLOOD SPECIMENOrdering Facility: [facility] Address:[address] [place], [place] [address]Performed By: #### 87584-9, 75713-3, 232-2 ####[facility] LABCLIA [id number] VIL[place] [address] [place] AMERICAProtein [Mass/Vol]4.9 g/dLLow 6.3-8.0[facility] on above:Order Comment: Specimen Type: BLOOD SPECIMENOrdering Facility: [facility] Address:[address] [place], [place] [address]Result Comment: Result rechecked.Performed By: #### 02700-1, 87287-2, 2324-2 ####[facility] LABCLIA [id number] [place] [address] [place] AMERICASodium [Moles/Vol]141 mmol/UClqgwx135-048ByzruqsdtProMedica [facility] on above: Order Comment: Specimen Type: BLOOD SPECIMENOrdering Facility: [facility] Address:[address] [place], [place] [address]Performed By: #### 29026- 9, 45482-5, 2324-2 ####[facility] LABCLIA [id number][place] [address] [place] AMERICAUrea nitrogen [Mass/Vol]13 mg/dLNormal9-24[facility] on above:Order Comment: Specimen Type: BLOOD SPECIMENOrdering Facility: [facility] Address:[address] [place], [place] [address]Performed By: #### 79173- 9, 55917-7, 2324-2 ####[facility] LABCLIA [id number][place] [address] [place] AMERICAGGT SerPl-cCncon 35-80-7290Asioc glutamyl transferase [Catalytic activity/Vol]121 U/MAlfz37-56 [facility] on above:Order Comment: Specimen Type: BLOOD SPECIMENOrdering Facility: [facility] Address:[address] [place], [place] [address]Performed By: #### 93684-2, 67122-9, 2324-2 ####[facility] LABCLIA [id number][place] [address] [place] AMERICAMagnesium SerPl-mCncon 36-37-4672Hipcamzgn [Mass/Vol]1.8 mg/dLNormal1.7-2.3CM[facility] on above:Order Comment: Specimen Type: BLOOD SPECIMENOrdering Facility: [facility] Address:[address] [place], [place] [address]Performed By: #### 95970- 9, 90722-8, 2324-2 ####[facility] LABCLIA [id number] VIL[place] [address] [facility] CENTERURSFARREN [facility] PROGon 38-35-9978QKIGZCX PROGNormalUniversity Hospitals Samaritan Medical CenterPT panel Coag (PPP)on 86-86-7344IXZ Coag (PPP) [Relative time]1.0 {INR}Normal0.9-1.3CM[facility] on above:Order Comment: Specimen Type: BLOOD SPECIMENOrdering Facility: [facility] Address:[address] [place], [place] [address]Result Comment: Vitamin K Antagonist (VKA) Therapeutic Range: INR 2 to 3 (Target INR of 2.5)Note: For patients treated with VKA drugs, such as warfarin, the [place] [employer] 2012 Guideline recommends a therapeutic INR range of 2 to 3 (target INR of 2.5). This recommendation includes high-risk patients with antiphospholipid syndrome with previous arterial or venous thromboembolism, current-generation mechanical or bioprosthetic aortic heart valve replacement.Note: Patients with mechanical aortic valve replacement and additional risk factors for thromboembolic events (atrialfibrillation, previous thromboembolism, LV dysfunction, hypercoagulable conditions) or an older gene ration mechanical AVR (i.e., ball in-Cage) or any mechanical MVR should have a INR therapeutic range of 2.5 to 3.5 (target INR of 3).Lizy WATSON, et al. Chest 2012, 141:7S-47SBeau RED, et al. [facility] 2017, 70: 252-289Performed By: #### 74323-2 ####[facility] LABIA [id number] [place] [address] [facility]OS[facility]ITALPT Coag (PPP) [Time] 11.1 sNormal9.7-13.0[facility] on above:Order Comment: Specimen Type: BLOOD SPECIMENOrdering Facility: [facility] Address:[address] [place], [place] [address]Performed By: #### 49154-9 ####[facility] [id number] [address] AVEN[address] [place], [place] [address] [place] AMERICAINR Coag (PPP) [Relative time]1.0 {INR}Normal0.9-1.3CM[facility] on above:Order Comment: Specimen Type: BLOOD SPECIMENOrdering Facility: [facility] Address:[address] [place], [place] [address]Result Comment: Vitamin K Antagonist (VKA) Therapeutic Range: INR 2 to 3 (Target INR of 2.5)Note: For patients treated with VKA drugs, such as warfarin, the [place] [employer] 2012 Guideline recommends a therapeutic INR range of 2 to 3 (target INR of 2.5). This recommendation includes high-risk patients with antiphospholipid syndrome with previous arterial or venous thromboembolism, current-generation mechanical or bioprosthetic aortic heart valve replacement.Note: Patients with mechanical aortic valve replacement and additional risk factors for thromboembolic events (atrialfibrillation, previous thromboembolism, LV dysfunction, hypercoagulable conditions) or an older gene ration mechanical AVR (i.e., ball in-Cage) or any mechanical MVR should have a INR therapeutic range of 2.5 to 3.5 (target INR of 3).Lizy WATSON, et al. Chest 2012, 141:7S-47SNishimura RA, et al. JAC 2017, 70: 252-289Performed By: #### 40465-0, 72545-4 ####[facility] [id number] [place] [address] [place] AMERICAPT Coag (PPP) [Time] 11.3 sNormal9.7-13.0[facility] on above:Order Comment: Specimen Type: BLOOD SPECIMENOrdering Facility: [facility] Address:[address] [place], [place] [address]Performed By: #### 72714-9, 14657-9 ####[facility] [id number] [place] [address] [place] AMERICATOXICOLOGY SCREEN, ROUTINE URINE on 62-87-7368Vmflnkhijigw Confirm (U) [Mass/Vol]NegativeNormalNegativeProMedica [facility] on above:Order Comment: Specimen Type: URINE SPECIMENOrdering Facility: [facility] Address:[address] [place], [place] [address]Result Comment: Cutoff threshold at 1000 ng/mL.Performed By: #### UTOX2 ####[facility] LABIA [id number] [address] [place] [address] [place] AMERICABARBITURATES, URINE NegativeNormalNegativeProMedica [facility] on above:Order Comment: Specimen Type: URINE SPECIMENOrdering Facility: [facility] Address:[address] [place], [place] [address]Result Comment: Cutoff threshold at 200 ng/mL.Performed By: #### UTOX2 ####[facility] LABIA [id number] [address], [facility]95 [place] DOMIINQUE BENZODIAZEPINES, URINENegativeNormalNegativeProMedica [facility] on above:Order Comment: Specimen Type: URINE SPECIMENOrdering Facility: [facility] Address:[address] [place], [place] [address]Result Comment: Cutoff threshold at 200 ng/mL.Performed By: #### UTOX2 ####[facility] LABIA [id number] [address] [place] [address] [place] AMERICACannabinoids Screen Ql (U)PositiveAbnormalNegativeProMedica [facility] on above:Order Comment: Specimen Type: URINE SPECIMENOrdering Facility: [facility] Address:[address] [place], [place] [address]Result Comment: Cutoff threshold at 50 ng/mL.Performed By: #### UTOX2 ####[facility] LABIA [id number] [address] [place] [address] [place] AMERICACocaine Ql (U)Negative NormalNegativeProMedica [facility] on above:Order Comment: Specimen Type: URINE SPECIMENOrdering Facility: [facility] Address:[address] [place], [place] [address]Result Comment: Cutoff threshold at 300 ng/mL. Performed By: #### UTOX2 ####[facility] LABCLIA [id number] [facility] [id number] [place], [place] [address] [place] AMERICAEthanol (U) [Mass/Vol]<11Normal<11[facility] on above:Order Comment: Specimen Type: URINE SPECIMENOrdering Facility: [facility] Address:[address] [place], [place] [address]Performed By: #### UTOX2 ####[facility] LABIA [id number] [place] [address] [place] AMERICAfentaNYL Screen Ql (U)Positive AbnormalNegativeProMedica [facility] on above:Order Comment: Specimen Type: URINE SPECIMENOrdering Facility: [facility] Address:[address] [place], [place] [address]Result Comment: Cutoff threshold at 5 ng/mL.Performed By: #### UTOX2 ####[facility] SUR[facility] SOUTHWOODSIA [id number] [place] [address] [place] DOMINIQUE Opiates Screen Ql (U)NegativeNormalNegativeProMedica [facility] on above:Order Comment: Specimen Type: URINE SPECIMENOrdering Facility: [facility] Address:[address] [place], [place] [address]Result Comment: Cutoff threshold at 300 ng/mL.Performed By: #### UTOX2 ####[facility] LABIA [id number] [place] [address] [place] AMERICAoxyCODONE cutoff Screen (U) [Mass/Vol]NegativeNormalNegative [facility] on above:Order Comment: Specimen Type: URINE SPECIMENOrdering Facility: [facility] Address:[address] [place], [place] [address]Result Comment: Cutoff threshold at 100 ng/mL.Performed By: #### UTOX2 ####[facility] LABIA [id number] [place] [address] [place] AMERICAPhencyclidine Ql (U) NegativeNormalNegativeProMedica [facility] on above:Order Comment: Specimen Type: URINE SPECIMENOrdering Facility: [facility] Address:[address] [place], [place] [address]Result Comment: Cutoff threshold at 25 ng/mL.Performed By: #### UTOX2 ####[facility] LABCLIA [id number] [place] [address] [place]IQUE TYPE + SCREENon 84-28-1645XCEFIfpbtgCaangmaxaMary Rutan Hospital on above: Order Comment: Specimen Type: BLOOD SPECIMENOrdering Facility: [facility] Address:[address] [place], [place] [address]Performed By: #### TSCR ####[facility]LO[facility] BANKCLIA [id number] [place] [address] [place] AMERICARh Nom (Bld)PositiveNormalCMary [facility] on above:Order Comment: Specimen Type: BLOOD SPECIMENOrdering Facility: [facility] Address:[address] [place], [place] [address]Performed By: #### TSCR ####[facility] BLOOD BANKCLIA [id number] [place] [address] [place] AMERICATYPE AND SCREEN HMHURRYJLH45/08/2025 23:59NormalCMary [facility]an Hospital on above:Order Comment: Specimen Type: BLOOD SPECIMENOrdering Facility: [facility] Address:[address] [place], [place] [address]Performed By: #### TSCR ####[facility] BLOOD BANKCLIA [id number] [place] [address] [place] AMERICAUS ABD LIVER VASCULARon 66-66-7327AN ABD LIVER VASCULARNormalCWayne HealthCare Main CampusUS DOPPLER COMPLETEon 45-18-7380BN DOPPLER COMPLETENormalCWayne HealthCare Main CampusUpper EUSon 15-13-2031Vndta EUS NormalUniversity Hospitals Samaritan Medical CenteraPTT PPPon 06-05-2770cMXW Coag (PPP) [Time]26.6 yJweaci56.0-32.4CWayne HealthCare Main CampusComment on above:Order Comment: Specimen Type: BLOOD SPECIMENOrdering Facility: [facility] Address:[address] [place], [place] [address]Performed By: #### 73033-3, 40304-6 ####[facility] LABCLIA [id number] [facility] [id number], [place] [address] [place] AMERICABasic metabolic 2000 panelon 12-41-7050Dlzej gap [Moles/Vol]14 mmol/LNormal8-15Mi[facility] HospitalComment on above:Order Comment: Specimen Type: BLOOD SPECIMEN [facility] Address: [address] [place], [place] [address]Performed By: #### 70282-8, 89742-3 #### [facility] CLIA [id number] [address] [place] [address] [place] AMERICACalcium [Mass/Vol]7.8 mg/dLLow 8.5-10.2FPratt Clinic / New England Center HospitalComment on above:Order Comment: Specimen Type: BLOOD SPECIMEN [facility] Address: [address] [place], [place] [address]Performed By: #### 74956-0, 81053-0 #### [facility] CLIA [id number] [address] [place] [address] [place] AMERICAChloride [Moles/Vol]112 mmol/LHigh 98-107[facility] HospitalComment on above:Order Comment: Specimen Type: BLOOD SPECIMEN [facility] Address: [address] [place], [place] [address]Performed By: #### 26008-3, 55783-7 #### [facility] CLIA [id number] [address] [place] [address] [place] AMERICACO2 [Moles/Vol]14 mmol/MHdc77-54 [facility] DevensComment on above:Order Comment: Specimen Type: BLOOD SPECIMEN [facility] Address: [address] [place], [place] [address]Performed By: #### 98206-0, 09127-8 #### [facility] CLIA [id number] [address] [place] [id number] [place] AMERICACreatinine [Mass/Vol]1.19 mg/dL Normal0.73-1.22[facility], DevensComment on above:Order Comment: Specimen Type: BLOOD SPECIMEN [facility] Address: [address] [place], [place] [address]Performed By: #### 54559-0, 38915-8 #### [facility] CLIA [id number] [address] [place] [address] [place] AMERICACreatinine and Glomerular filtration rate.predicted panel (S/P/Bld)66 mL/min/1.73m???Normal>=60[facility] Comment on above:Order Comment: Specimen Type: BLOOD SPECIMEN [facility] Address: [address] [place], [place] [address]Result Comment: Estimated Glomerular Filtration Rate (eGFR) is calculated using the 2020 CKD-EPI cre atinine equation. This equation utilizes serum creatinine, sex, and age as parameters. The creatinine assay has traceable calibration to isotope dilution- mass spectrometry. Refer to KDIGO guidelines for clinical interpretation. In patients with unstable renal function, e.g. those with acute kidney injury, the eGFR may not accurately reflect actual GFR.Performed By: #### 99061-8, 12872-6 #### [facility] CLIA [id number] [place], [place] [address] [place] AMERICAGlucose [Mass/Vol]144 mg/zTMmac97-85 [facility] DevensComment on above:Order Comment: Specimen Type: BLOOD SPECIMEN [facility] Address: [address] [place], [place] [address]Result Comment: The [place] Diabetes Association (ADA) provides guidance for cutoff [...] Standards of Medical Care in Diabetes 2016, [place] [employer]. Diabetes Care. 2016.39(Suppl 1).Performed By: #### 95643-5, 60767-2 #### [facility] CLIA [id number] [address] [place] [address] [place] AMERICAPotassium [Moles/Vol]3.6 mmol/LLow 3.7-5.1Fmelrosewakefield hospital HospitalComment on above:Order Comment: Specimen Type: BLOOD SPECIMEN [facility] Address: [address] [place], [place] [address]Performed By: #### 20610-3, 19023-0 #### [facility] CLIA [id number] [address] [place] [address] [place] MAGRUDER HOSPITALSodium [Moles/Vol]140 mmol/LNormal 136-144FaHudson HospitalComment on above:Order Comment: Specimen Type: BLOOD SPECIMEN [facility] Address: [address] [place], [place] [address]Performed By: #### 19558-3, 26852-7 #### [facility] CLIA [id number] [address] [place] [address] [place] AMERICAUrea nitrogen [Mass/Vol]19 mg/dL Normal9-24FaHudson HospitalComment on above:Order Comment: Specimen Type: BLOOD SPECIMEN [facility] Address: [address] [place], [place] [address]Performed By: #### 01248-2, 67669-3 #### [facility] CLIA [id number] [address] [place] [address] [place] AMERICACBC panel Auto (Bld)on 02-25-2025 Erythrocyte distribution width (RBC) [Ratio]16.3 %High11.5-15.0[facility] Comment on above:Order Comment: Specimen Type: BLOOD SPECIMEN [facility] Address: [address] [place], [place] [address]Performed By: #### 80597-6 #### [facility] CLIA [id number] [address] [place] [address] [place] AMERICAHematocrit (Bld) [Volume fraction] 26.1 %Low39.0-51.0[facility] HospitalComment on above:Order Comment: Specimen Type: BLOOD SPECIMEN [facility] Address: [address] [place], [place] [address]Performed By: #### 80019-0 #### [facility] CLIA [id number] [address] [place] [address] [place] AMERICAHemoglobin (Bld) [Mass/Vol]8.2 g/dL Low13.0-17.0[facility] HospitalComment on above:Order Comment: Specimen Type: BLOOD SPECIMEN [facility] Address: [address] [place], [place] [address]Performed By: #### 76839-3 #### [facility] CLIA [id number] [address] [place] [address] OF [facility] (RBC) [Entitic mass]28.5 pg Kiavzl49.0-34.0[facility] HospitalComment on above:Order Comment: Specimen Type: BLOOD SPECIMEN [facility] Address: [address] [place], [place] [address]Performed By: #### 91153-2 #### [facility] CLIA [id number] [address] [place] [address] [facility] MAGRUDER HOSPITALMCHC (RBC) [Mass/Vol]31.4 g/dLNormal 30.5-36.0[facility] HospitalComment on above:Order Comment: Specimen Type: BLOOD SPECIMEN [facility] Address: [address] [place], [place] [address]Performed By: #### 38165-0 #### [facility] CLIA [id number] [address] [place], [place] [address]V (RBC) [Entitic vol]90.6 fLNormal 80.0-100.0[facility] HospitalComment on above:Order Comment: Specimen Type: BLOOD SPECIMEN [facility] Address: [address] [place], [place] [address]Performed By: #### 74406-0 #### [facility] CLIA [id number] [address] [place] [address] [place] AMERICANucleated RBC (Bld) [#/Vol]10*3/uL Normal<0.01[facility] HospitalComment on above:Order Comment: Specimen Type: BLOOD SPECIMEN [facility] Address: [address] [place], [place] [address]Performed By: #### 54642-7 #### [facility] CLIA [id number] [address] [place] [address] [place] AMERICAPlatelet mean volume (Bld) [Entitic vol]10.8 fLNormal9.0-12.7Fmelrosewakefield hospital HospitalComment on above:Order Comment: Specimen Type: BLOOD SPECIMEN [facility] Address: [address] [place], [place] [address]Performed By: #### 58658-3 #### [facility] CLIA [id number] [address] [place] [address] [place] AMERICAPlatelets (Bld) [#/Vol]137 10*3/uL Ish314-081Dbamekre HospitalComment on above:Order Comment: Specimen Type: BLOOD SPECIMEN [facility] Address: [address] [place], [place] [address]Performed By: #### 16054-7 #### [facility] CLIA [id number] [address] [place] [address] [place] AMERICARBC (Bld) [#/Vol]2.88 10*6/uLLow 4.20-6.00[facility] HospitalComment on above:Order Comment: Specimen Type: BLOOD SPECIMEN [facility] Address: [address] [place], [place] [address]Performed By: #### 89229-4 #### [facility] CLIA [id number] [address] [place] [address] [place] AMERICAWBC (Bld) [#/Vol]4.87 10*3/uLNormal 3.70-11.00Mi[facility] HospitalComment on above:Order Comment: Specimen Type: BLOOD SPECIMEN [facility] Address: [address] [place], [place] [address]Performed By: #### 55134-1 #### [facility] CLIA [id number] [address] [place] [address] [place] AMERICAErythrocyte distribution width (RBC) [Ratio]16.9 %High11.5-15.0[facility] HospitalComment on above:Order Comment: Specimen Type: BLOOD SPECIMEN [facility] Address: [address] [place], [place] [address]Performed By: #### 96242-2, 99449-1 #### [facility] CLIA [id number] [address] [place], [place] [address]Hematocrit (Bld) [Volume fraction] 27.8 %Low39.0-51.0[facility] HospitalComment on above:Order Comment: Specimen Type: BLOOD SPECIMEN [facility] Address: [address] [place], [place] [address]Performed By: #### 84945-8, 95653-7 #### [facility] CLIA [id number] [address] [place], [place] [address] STATES OF AMERICAHemoglobin (Bld) [Mass/Vol]8.5 g/dL Low13.0-17.0[facility] HospitalComment on above:Order Comment: Specimen Type: BLOOD SPECIMEN [facility] Address: [address] [place], [place] [address]Performed By: #### 31119-6, 63775-2 #### [facility] CLIA [id number] [address] [place] [address] [place] AMERICAMCH (RBC) [Entitic mass]28.3 pg Isadbp90.0-34.0[facility] HospitalComment on above:Order Comment: Specimen Type: BLOOD SPECIMEN [facility] Address: [address] [place], [place] [address]Performed By: #### 49382-5, 76544-9 #### [facility] CLIA [id number] [address] [place] [address] [facility]PAR[facility]AM CAMPUSMCHC (RBC) [Mass/Vol]30.6 g/dLNormal 30.5-36.0[facility] HospitalComment on above:Order Comment: Specimen Type: BLOOD SPECIMEN [facility] Address: [address] [place], [place] [address]Performed By: #### 44081-5, 39891-2 #### [facility] CLIA [id number] [address] [place], [place] [address]MCV (RBC) [Entitic vol]92.7 fLNormal 80.0-100.0[facility] HospitalComment on above:Order Comment: Specimen Type: BLOOD SPECIMEN [facility] Address: [address] [place], [place] [address]Performed By: #### 72794-4, #### [facility] CLIA [id number] [address] [place] [address] [place] AMERICANucleated RBC (Bld) [#/Vol]10*3/uL Normal<0.01[facility] HospitalComment on above:Order Comment: Specimen Type: BLOOD SPECIMEN [facility] Address: [address] [place], [place] [address]Performed By: #### 58305-8, 02874-6 #### [facility] CLIA [id number] [address] [place] [address] [place] AMERICAPlatelet mean volume (Bld) [Entitic vol]10.4 fLNormal9.0-12.7Fmelrosewakefield hospital HospitalComment on above:Order Comment: Specimen Type: BLOOD SPECIMEN [facility] Address: [address] [place], [place] [address]Performed By: #### 99467-0, 67673-5 #### [facility] CLIA [id number] [address] [place] [address] [place] AMERICAPlatelets (Bld) [#/Vol]140 10*3/uL [id number] HospitalComment on above:Order Comment: Specimen Type: BLOOD SPECIMEN [facility] Address: [address] [place], [place] [address]Performed By: #### 72405-3, 42941-3 #### [facility] CLIA [id number] [address] [place] [address] [place] AMERICARBC (Bld) [#/Vol]3.00 10*6/uLLow 4.20-6.00[facility] HospitalComment on above:Order Comment: Specimen Type: BLOOD SPECIMEN [facility] Address: [address] [place], [place] [address]Performed By: #### 09308-8, 28000-4 #### [facility] CLIA [id number] [address] [place] [address] STATES OF AMERICAWBC (Bld) [#/Vol]7.67 10*3/uLNormal 3.70-11.00[place] HospitalComment on above:Order Comment: Specimen Type: BLOOD SPECIMEN [facility]: [facility] Address: [address] [place], [place] [address]Performed By: #### 92600-5, 49816-6 #### [facility] CLIA [id number] [address] [place] [address] [facility] OF AMERICAErythrocyte distribution width (RBC) [Ratio]16.9 %High11.5-15.0[facility] HospitalComment on above:Order Comment: Specimen Type: BLOOD SPECIMEN [facility]: [facility] Address: [address] [place], [place] [address]Performed By: #### 09532-7 #### [facility] CLIA [id number] [address] [place] [address] STATES OF AMERICAHematocrit (Bld) [Volume fraction] 24.5 %Low39.0-51.0[facility] HospitalComment on above:Order Comment: Specimen Type: BLOOD SPECIMEN [facility] Address: [address] [place], [place] [address]Performed By: #### 01956-6 #### [facility] CLIA [id number] [address] [place], [place] [address]Hemoglobin (Bld) [Mass/Vol]7.8 g/dL Low13.0-17.0[facility] HospitalComment on above:Order Comment: Specimen Type: BLOOD SPECIMEN [facility] Address: [address] [place], [place] [address]Performed By: #### 37205-3 #### [facility] CLIA [id number] [address] [place] [address] (RBC) [Entitic mass]28.7 pg Byfcir94.0-34.0[facility] HospitalComment on above:Order Comment: Specimen Type: BLOOD SPECIMEN [facility] Address: [address] [place], [place] [address]Performed By: #### 06886-9 #### [facility] [place] [id number] [address] [place], [place] [address]HC (RBC) [Mass/Vol]31.8 g/dLNormal 30.5-36.0[facility] HospitalComment on above:Order Comment: Specimen Type: BLOOD SPECIMEN [facility] Address: [address] [place], [place] [address]Performed By: #### 12764-9 #### [facility] CLIA [id number] [address] [place] [address] (RBC) [Entitic vol]90.1 fLNormal 80.0-100.0[facility] HospitalComment on above:Order Comment: Specimen Type: BLOOD SPECIMEN [facility] Address: [address] [place], [place] [address]Performed By: #### 16495-2 #### [facility] CLIA [id number] [address] [place] [address] RBC (Bld) [#/Vol]10*3/uL Normal<0.01[facility] HospitalComment on above:Order Comment: Specimen Type: BLOOD SPECIMEN [facility] Address: [address] [place], [place] [address]Performed By: #### 31770-4 #### [facility] CLIA [id number] [address] [place] [address] [place] OF AMERICAPlatelet mean volume (Bld) [Entitic vol]10.1 fLNormal9.0-12.7[facility] HospitalComment on above:Order Comment: Specimen Type: BLOOD SPECIMEN [facility] Address: [address] [place], [place] [address]Performed By: #### 30738-6 #### [facility] CLIA [id number] [address] [place] [address] [place] OF AMERICAPlatelets (Bld) [#/Vol]134 10*3/uL Oap474-650Djfjfeeb HospitalComment on above:Order Comment: Specimen Type: BLOOD SPECIMEN [facility] Address: [address] [place], [place] [address]Performed By: #### 75167-8 #### [facility] CLIA [id number] [address] [place] [address] [place] OF AMERICARBC (Bld) [#/Vol]2.72 10*6/uLLow 4.20-6.00[facility] HospitalComment on above:Order Comment: Specimen Type: BLOOD SPECIMEN [facility] Address: [address] [place], [place] [address]Performed By: #### 24014-3 #### [facility] CLIA [id number] [address] [place] [address] [place] AMERICAWBC (Bld) [#/Vol]8.34 10*3/uLNormal 3.70-11.00[facility] HospitalComment on above:Order Comment: Specimen Type: BLOOD SPECIMEN [facility] Address: [address] [place], [place] [address]Performed By: #### 81523-5 #### [facility] CLIA [id number] [address] [place] [address] [place] OF AMERICAErythrocyte distribution width (RBC) [Ratio]17.0 %High11.5-15.0[facility] HospitalComment on above:Order Comment: Specimen Type: BLOOD SPECIMEN [facility] Address: [address] [place], [place] [address]Performed By: #### 72991-5 #### [facility] [place] [id number] [address] [place] [address] OF MAGRUDER HOSPITALHematocrit (Bld) [Volume fraction] 26.1 %Low39.0-51.0[facility] HospitalComment on above:Order Comment: Specimen Type: BLOOD SPECIMEN [facility] Address: [address] [place], [place] [address]Performed By: #### 45278-1 #### [facility] [place] [id number] [address] [place], [place] [address]Hemoglobin (Bld) [Mass/Vol]8.3 g/dL Low13.0-17.0[facility] HospitalComment on above:Order Comment: Specimen Type: BLOOD SPECIMEN [facility] Address: [address] [place], [place] [address]Performed By: #### 25061-0 #### [facility] [place] [id number] [address] [place] [address] (RBC) [Entitic mass]28.8 pg Wotcwc05.0-34.0[facility] HospitalComment on above:Order Comment: Specimen Type: BLOOD SPECIMEN [facility] Address: [address] [place], [place] [address]Performed By: #### 44094-7 #### [facility] [place] [id number] [address] [place] [address] STATES OF [facility] (RBC) [Mass/Vol]31.8 g/dLNormal 30.5-36.0[facility] HospitalComment on above:Order Comment: Specimen Type: BLOOD SPECIMEN [facility] Address: [address] [place], [place] [address]Performed By: #### 52331-2 #### [facility] CLIA [id number] [address] [place] [address] [place] OF AMERICAMCV (RBC) [Entitic vol]90.6 fLNormal 80.0-100.0[facility] HospitalComment on above:Order Comment: Specimen Type: BLOOD SPECIMEN [facility] Address: [address] [place], [place] [address]Performed By: #### 89273-8 #### [facility] CLIA [id number] [address] [place] [address] [place] AMERICANucleated RBC (Bld) [#/Vol]10*3/uL Normal<0.01[facility] HospitalComment on above:Order Comment: Specimen Type: BLOOD SPECIMEN [facility] Address: [address] [place], [place] [address]Performed By: #### 25695-8 #### [facility] CLIA [id number] [address] [place] [address] [place] AMERICAPlatelet mean volume (Bld) [Entitic vol]10.5 fLNormal9.0-12.7[facility] HospitalComment on above:Order Comment: Specimen Type: BLOOD SPECIMEN [facility] Address: [address] [place], [place] [address]Performed By: #### 37137-0 #### [facility] CLIA [id number] [address] [place] [address] [place] AMERICAPlatelets (Bld) [#/Vol]137 10*3/uL Kyr070-446Hrgjzwcu HospitalComment on above:Order Comment: Specimen Type: BLOOD SPECIMEN [facility] Address: [address] [place], [place] [address]Performed By: #### 14486-4 #### [facility] CLIA [id number] [address] [place] [address] [place] OF AMERICARBC (Bld) [#/Vol]2.88 10*6/uLLow 4.20-6.00[facility] HospitalComment on above:Order Comment: Specimen Type: BLOOD SPECIMEN [facility] Address: [address] [place], [place] [address]Performed By: #### 77983-4 #### [facility] CLIA [id number] [address]ETWBC (Bld) [#/Vol]1008 10*3/uLNormal 3.70-11.00[facility] on above:Order Comment: Specimen Type: BLOOD SPECIMEN [facility] Address: [address] [place], [place] [address]Performed By: #### 05433-3 #### [facility] CLIA [id number] [address] [place] [id number] [facility] HOSPITALCNDSon 41-49-1266VEPSCKN ID: [id number] Author: CLARICE NICHOLS MD Service: Hospital Medicine Author Type: Resident Type: Discharge Summary Filed: 02/28/2025 10:59 Note Text: Attestation signed by Clarice Nichols MD at 02/28/2025 10:59 AM Attending Note I evaluated the patient's case and personally participated in the ayala components. I agree with the resident's findings and plan. I have performed the yozk-sm-ixoi and relevant services for a total of >30 minutes. This note is meant to be an overview of the patient's hospitalization, and is not intended to be comprehensive. Please see the chart for details. Clarice Nichols MD DISCHARGE SUMMARY PATIENT NAME: Aisha Julien ADMISSION DATE: 02/23/2025 DISCHARGE DATE: 02/25/2025 ATTENDING PHYSICIAN: Clarice Nichols MD Code Status: Full Code PCP: Rene Cannon MD, MD Highest Readmission Risk Score: 18 The 30 day readmissions risk score is derived from an internally validated risk model which evaluates patient level characteristics, utilization history, medication orders and lab results up until the day of discharge. Patients with a score of 39 or above are considered highest risk for readmission. Specific patient level drivers will be listed at the bottom of the summary. 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 Given her high risk of repeat bleeding, she is being transferred to [facility] for further interventions. Required intubation intra procedurally and subsequently extubated on 02/24 CTA with no evidence of bleeding Ongoing melanotic stool with hemodynamic stability Stable h/h Plan: Continue with IV PPI twice daily Continue with octreotide infusion for 72 hours Active type and screen Consider transfusion if hemoglobin <7 or actively bleeding CBC q 8 hours Transfer to [facility] to attempt endoscopic glue versus embolization by advanced endoscopist Clear liquid diet Maintain 2 large-bore IV cannula #ENEDINA on CKD 3a -Baseline Cr 0.8-1 -Likely prerenal in the setting of hypovolemia Plan: -Renally adjust medications -Avoid nephrotoxins, NSAIDs -Monitor BMP -Monitor I/O's and daily weight Chronic Problems: # Hypertension Currently normotensive Hold home losartan # Alcohol use disorder Last alcohol drink on 02/21 Low concern for withdrawal Stop thiamine and CIWA protocol He is currently stable to be transferred to [facility] for further interventions. OPERATIONS/PROCEDURE DURING THIS HOSPITALIZATION: * No surgery found * CONSULTS DURING HOSPITALIZATION: Treatment Team: Attending Provider: Clarice Nichols MD Consulting: Pratik Winters MD Consulting: Claudia Alonso MD PATIENT CONDITION AT DISCHARGE: Stable DISCHARGE DISPOSITION: Transferred to [facility] Discharge Physical Exam: VITAL SIGNS: BP (!) 121/47 Pulse 74 Temp 36.7 ?C (98.1 ?F) (Oral) Resp 16 Ht 176.5 cm (5' 9.5 ) Wt 77.6 kg (171 lb 1.2 oz) SpO2 97% BMI 24.90 kg/m? HEENT: EOM's intact Lungs: Clear Heart: Regular rate AND rhythm Abdomen: Soft, Non- (more content not included)...NormalFairlicking memorial hospital HospitalHISTORY PHYSICALon 52-89-2492NOGOMRJ PHYSICALNormalClevelECU Health Roanoke-Chowan HospitalMagnesium SerPl-mCncon 84-72-3882Ktkjcouka [Mass/Vol]1.8 mg/dLNormal1.7-2.3[facility] HospitalComment on above:Order Comment: Specimen Type: BLOOD SPECIMEN [facility] [address]: [address] HOSPITALRUTHIEMarkell [place], [place] [address]Olcoxclyk By: #### 05418-7, 26297-5 #### [facility] CLIA [id number] [place] [address] [place] OF AMERICANURSING PROGon 71-78-6818CGSNFYO PROGNormalMetroHealth [facility] ID: [id number] Author: DRISS HERNANDEZ RN Service: Nursing Author Type: Registered Nurse Type: Nursing Progress Note Filed: 02/25/2025 19:19 Note Text: Report called to [address] 1918: Pt left unit via stretcher with belongings in stable condition.Normal [facility] ID: [id number] Author: DRISS HERNANDEZ RN Service: Nursing Author Type: Registered Nurse Type: Nursing Progress Note Filed: 02/25/2025 12:34 Note Text: Transfer Note: PATIENT NAME: Aisha Julien Patient Location: [place] [address] [address] Room: [place] [address] [facility]. Actions taken: No futher actions taken at this time. Will continue to monitor and check with patient.NormalFederal Medical Center, DevensARTERIAL BLOOD GASESon 26-18-9466Uqho deficit (BldA) [Moles/Vol]-9 mmol/NLsl-2-6Xorexgjy HospitalComment on above:Order Comment: Specimen Type: ARTERIAL BLOOD SPECIMEN [facility] Address: [address] [place], [place] [address]Performed By: #### ALLBG #### [facility] CLIA [id number] [address] [place] [address] [place] AMERICABody .6 [degF]Normal [facility], DevensComment on above:Order Comment: Specimen Type: ARTERIAL BLOOD SPECIMEN [facility] Address: [address] [place], [place] [address]Performed By: #### ALLBG #### [facility] CLIA [id number] [address] [place] [address] [place] AMERICACalcium.ionized (Bld) [Mass/Vol]1.27 mmol/LNormal1.08-1.30[place] HospitalComment on above:Order Comment: Specimen Type: ARTERIAL BLOOD SPECIMEN [facility] Address: [address] [place], [place] [address]Performed By: #### ALLBG #### [facility] CLIA [id number] [address] [place] [address] [place] AMERICACalcium.ionized adjusted to pH 7.4 (BldA) [Moles/Vol]1.25 mmol/LNormal1.08-1.30[place] HospitalComment on above: Order Comment: Specimen Type: ARTERIAL BLOOD SPECIMEN [facility] Address: [address] [place], [place] [address]Performed By: #### ALLBG #### [facility] CLIA [id number] [address] [place], [place] [address]Carboxyhemoglobin (BldA) [Mass fraction]0.5 %Normal0.0-2.0[place] HospitalComment on above:Order Comment: Specimen Type: ARTERIAL BLOOD SPECIMEN [facility] Address: [address] [place], [place] [address]Result Comment: Carboxyhemoglobin Reference Range for Smokers: 2.0-8.0%Performed By: #### ALLBG #### [facility] CLIA [id number] [address] [place] [address] STATES OF AMERICACO2 (Bld) [Partial pressure]25 mm Hg Xry58-88Usgujmjv HospitalComment on above:Order Comment: Specimen Type: ARTERIAL BLOOD SPECIMEN [facility] Address: [address] [place], [place] [address]Performed By: #### ALLBG #### [facility] CLIA [id number] [address] [place] [address] [place] OF WSXWIGJSSO759 %NormalMiami Hospital Comment on above:Order Comment: Specimen Type: ARTERIAL BLOOD SPECIMEN [facility] Address: [address] [place], [place] [address]Performed By: #### ALLBG #### [facility] CLIA [id number] [address] [place] [address] [place] AMERICAGlucose [Mass/Vol]119 mg/dLHigh 60-105[facility] HospitalComment on above:Order Comment: Specimen Type: ARTERIAL BLOOD SPECIMEN [facility] Address: [address] [place], [place] [address]Performed By: #### ALLBG #### [facility] CLIA [id number] [place] [address] [place] AMERICAHCO3 (Bld) [Moles/Vol]14 mmol/LLow 22-26Mi[place] HospitalComment on above:Order Comment: Specimen Type: ARTERIAL BLOOD SPECIMEN [facility] Address: [address] [place], [place] [address]Performed By: #### ALLBG #### [facility] [place] [id number] [address] [place] [address] [place] AMERICAHematocrit (Bld) [Volume fraction] 28.2 %Low39.0-51.0[place] HospitalComment on above:Order Comment: Specimen Type: ARTERIAL BLOOD SPECIMEN [facility] Address: [address] [place], [place] [address]Performed By: #### ALLBG #### [facility] [place] [id number] [address] [place] [address] [place] AMERICAHemoglobin (Bld) [Mass/Vol]9.1 g/dL Low13.0-17.0[place] HospitalComment on above:Order Comment: Specimen Type: ARTERIAL BLOOD SPECIMEN [facility] Address: [address] [place], [place] [address]Performed By: #### ALLBG #### [facility] CLIA [id number] [address] [place] [address] [place] AMERICAINHALED TIDAL VOLUME (ML)480Normal [place] HospitalComment on above:Order Comment: Specimen Type: ARTERIAL BLOOD SPECIMEN [facility] Address: [address] [place], [place] [address]Performed By: #### ALLBG #### [facility] CLIA [id number] [address] [place] [address] [place] AMERICALactate [Moles/Vol]0.6 mmol/LNormal 0.5-2.2Fmelrosewakefield hospital HospitalComment on above:Order Comment: Specimen Type: ARTERIAL BLOOD SPECIMEN [facility] Address: [address] [place], [place] [address]Performed By: #### ALLBG #### [facility] CLIA [id number] [place] [address] [place] AMERICAMethemoglobin (Bld) [Mass fraction] 0.9 %Normal0.0-1.5Fmelrosewakefield hospital HospitalComment on above:Order Comment: Specimen Type: ARTERIAL BLOOD SPECIMEN [facility] Address: [address] [place], [place] [address]Performed By: #### ALLBG #### [facility] CLIA [id number] [address] [place] [address] [place] AMERICAO2 THERAPYVENT=VentilatorNormal Miami HospitalComment on above:Order Comment: Specimen Type: ARTERIAL BLOOD SPECIMEN [facility] Address: [address] [place], [place] [address]Performed By: #### ALLBG #### [facility] CLIA [id number] [address] [place] [address] [place] AMERICAOxygen (Bld) [Partial pressure]158 mm ZtOpgl08-81Ukwfbptp HospitalComment on above:Order Comment: Specimen Type: ARTERIAL BLOOD SPECIMEN [facility] Address: [address] [place], [place] [address]Performed By: #### ALLBG #### [facility] CLIA [id number] [address] [place] [address] [place] AMERICAOxyhemoglobin (BldA) [Mass fraction] 97 %Dapqxm40-77Hnqvgqyk HospitalComment on above:Order Comment: Specimen Type: ARTERIAL BLOOD SPECIMEN [facility] Address: [address] [place], [place] [address]Performed By: #### ALLBG #### [facility] CLIA [id number] [place] [address] [place] AMERICAPEEP/CPAP5 ygK9DNdjswdZxtyaitu HospitalComment on above:Order Comment: Specimen Type: ARTERIAL BLOOD SPECIMEN [facility] Address: [address] [place], [place] [address]Performed By: #### ALLBG #### [facility] CLIA [id number] [address] [place] [address] [place] AMERICApH (Bld)7.37 [pH]Normal7.35-7.45 [place] HospitalComment on above:Order Comment: Specimen Type: ARTERIAL BLOOD SPECIMEN [facility] Address: [address] [place], [place] [address]Performed By: #### ALLBG #### [facility] CLIA [id number] [address] [place] [address] [place] MAGRUDER HOSPITALPO2 / FIO2 QIIQY110 mmHgNormal>300 [place] HospitalComment on above:Order Comment: Specimen Type: ARTERIAL BLOOD SPECIMEN [facility] Address: [address] [place], [place] [address]Performed By: #### ALLBG #### [facility] CLIA [id number] [address] [place] [address] [place] AMERICAPotassium [Moles/Vol]3.6 mmol/L Normal3.5-5.0[place] HospitalComment on above:Order Comment: Specimen Type: ARTERIAL BLOOD SPECIMEN [facility] Address: [address] [place], [place] [address]Performed By: #### ALLBG #### [facility] CLIA [id number] [address] [place] [address] [place] AMERICASET VENTILATOR RESPIRATORY RATE (BPM)16 BPMNoQuincy Medical Center HospitalComment on above:Order Comment: Specimen Type: ARTERIAL BLOOD SPECIMEN [facility] Address: [address] [place], [place] [address]Performed By: #### ALLBG #### [facility] CLIA [id number] [address] [place] [address] [place] AMERICASodium [Moles/Vol]149 mmol/LHigh 136-144[facility] HospitalComment on above:Order Comment: Specimen Type: ARTERIAL BLOOD SPECIMEN [facility] Address: [address] [place], [place] [address]Performed By: #### ALLBG #### [facility] CLIA [id number] [address] [place] [address] [place] AMERICABasic metabolic 2000 panelon 64-74-8209Vkyuo gap [Moles/Vol]12 mmol/LNormal8-15[facility] HospitalComment on above:Order Comment: Specimen Type: BLOOD SPECIMEN [facility] Address: [address] [place], [place] [address]Performed By: #### 16951-7, 96792-8 #### [facility] CLIA [id number] [address] [place] [address] [place] AMERICACalcium [Mass/Vol]7.8 mg/dLLow 8.5-10.2Fmelrosewakefield hospital HospitalComment on above:Order Comment: Specimen Type: BLOOD SPECIMEN [facility] Address: [address] [place], [place] [address]Performed By: #### 18184-9, 69500-2 #### [facility] CLIA [id number] [address] [place] [address] [place] AMERICAChloride [Moles/Vol]121 mmol/LHigh 98-107FaHudson HospitalComment on above:Order Comment: Specimen Type: BLOOD SPECIMEN [facility] Address: [address] [place], [place] [address]Performed By: #### 64928-3, 30181-9 #### [facility] CLIA [id number] [address] [place] [address] [place] AMERICACO2 [Moles/Vol]14 mmol/RVvh79-60 [place] HospitalComment on above:Order Comment: Specimen Type: BLOOD SPECIMEN [facility] Address: [address] [place], [place] [address]Performed By: #### 76363-1, 70487-2 #### [facility] CLIA [id number] [address] [place] [address] [place] AMERICACreatinine [Mass/Vol]1.72 mg/dLHigh 0.73-1.22[facility] on above:Order Comment: Specimen Type: BLOOD SPECIMEN [facility] Address: [address] [place], [place] [address]Performed By: #### 11380-9, 45472-4 #### [facility] CLIA [id number] [place] [address] [place] OF AMERICACreatinine and Glomerular filtration rate.predicted panel (S/P/Bld)42 mL/min/1.73m???Low>=60[facility] on above:Order Comment: Specimen Type: BLOOD SPECIMEN [facility] Address: [address] [place], [place] [address]Result Comment: Estimated Glomerular Filtration Rate (eGFR) is calculated using the 2020 CKD-EPI cre atinine equation. This equation utilizes serum creatinine, sex, and age as parameters. The creatinine assay has traceable calibration to isotope dilution- mass spectrometry. Refer to KDIGO guidelines for clinical interpretation. In patients with unstable renal function, e.g. those with acute kidney injury, the eGFR may not accurately reflect actual GFR.Performed By: #### 80577-3, 04117-7 #### [facility] CLIA [id number] [address] [place] [id number] [place] OF AMERICAGlucose [Mass/Vol]127 mg/oDKuhz91-59 [facility] on above:Order Comment: Specimen Type: BLOOD SPECIMEN [facility] Address: [address] [place] [address]Iarown Comment: The [place] Diabetes Association (ADA) provides guidance for cutoff [...] Standards of Medical Care in Diabetes 2016, [place] [employer]. Diabetes Care. 2016.39(Suppl 1).Performed By: #### 74638-9, 88268-4 #### [facility] CLIA [id number] [address] [place] [address] [place] OF AMERICAPotassium [Moles/Vol]3.8 mmol/L Normal3.7-5.1[facility] HospitalComment on above:Order Comment: Specimen Type: BLOOD SPECIMEN [facility]: [facility] Address: [address] [place], [place] [address]Performed By: #### 70868-1, 26718-3 #### [facility] CLIA [id number] [address] [place] [address] STATES OF MAG[facility]ER HOSPITALSodium [Moles/Vol]147 mmol/LHigh 136-144FaHudson HospitalComment on above:Order Comment: Specimen Type: BLOOD SPECIMEN [facility] Address: [address] [place], [place] [address]Performed By: #### 84590-2, 56854-2 #### [facility] CLIA [id number] [address] [place] [address] [place] OF AMERICAUrea nitrogen [Mass/Vol]38 mg/dLHigh 9-24FaHudson HospitalComment on above:Order Comment: Specimen Type: BLOOD SPECIMEN [facility]: [facility] Address: [address] [place], [place] [address]Performed By: #### 37482-2, 53434-3 #### [facility] CLIA [id number] [address] [place] [address] OF AMERICACBC panel Auto (Bld)on 02-24-2025 Erythrocyte distribution width (RBC) [Ratio]17.2 %High11.5-15.0[facility] Comment on above:Order Comment: Specimen Type: BLOOD SPECIMEN [facility] Address: [address] [place], [place] [address]Performed By: #### 85092-2 #### [facility] CLIA [id number] [address] HANSON STREETHematocrit (Bld) [Volume fraction] 27.3 %Low39.0-51.0[facility] HospitalComment on above:Order Comment: Specimen Type: BLOOD SPECIMEN [facility]: [facility] Address: [address] [place], [place] [address]Performed By: #### 81667-1 #### [facility] CLIA [id number] [address] [place] [address] OF MAGRUDER HOSPITALHemoglobin (Bld) [Mass/Vol]8.8 g/dL Low13.0-17.0[facility] HospitalComment on above:Order Comment: Specimen Type: BLOOD SPECIMEN [facility] Address: [address] [place], [place] [address]Performed By: #### 49294-3 #### [facility] CLIA [id number] [address] [place], [place] [address]MCH (RBC) [Entitic mass]29.2 pg Bsxwio35.0-34.0[facility] HospitalComment on above:Order Comment: Specimen Type: BLOOD SPECIMEN [facility] Address: [address] [place], [place] [address]Performed By: #### 52155-9 #### [facility] CLIA [id number] [address] [place] [address] [facility] HOSPITALMCHC (RBC) [Mass/Vol]32.2 g/dLNormal 30.5-36.0[facility] HospitalComment on above:Order Comment: Specimen Type: BLOOD SPECIMEN [facility] Address: [address] [place], [place] [address]Performed By: #### 03830-4 #### [facility] CLIA [id number] [address] [place] [address] OF MAGRUDER HOSPITALMCV (RBC) [Entitic vol]90.7 fLNormal 80.0-100.0[facility] HospitalComment on above:Order Comment: Specimen Type: BLOOD SPECIMEN [facility] Address: [address] [place], [place] [address]Performed By: #### 18959-2 #### [facility] CLIA [id number] [address] [place], [place] [address] [place] OF AMERICANucleated RBC (Bld) [#/Vol]10*3/uL Normal<0.01[facility] HospitalComment on above:Order Comment: Specimen Type: BLOOD SPECIMEN [facility] Address: [address] [place], [place] [address]Performed By: #### 47116-7 #### [facility] CLIA [id number] [address] [place] [address] [place] OF AMERICAPlatelet mean volume (Bld) [Entitic vol]10.5 fLNormal9.0-12.7[facility] HospitalComment on above:Order Comment: Specimen Type: BLOOD SPECIMEN [facility] Address: [address] [place], [place] [address]Performed By: #### 19582-5 #### [facility] CLIA [id number] [address] [place] [address] [place] OF AMERICAPlatelets (Bld) [#/Vol]148 10*3/uL Kzx841-209Hjuordto HospitalComment on above:Order Comment: Specimen Type: BLOOD SPECIMEN [facility] Address: [address] [place], [place] [address]Performed By: #### 35778-3 #### [facility] CLIA [id number] [address] [place] [address] [place] OF AMERICARBC (Bld) [#/Vol]3.01 10*6/uLLow 4.20-6.00[facility] HospitalComment on above:Order Comment: Specimen Type: BLOOD SPECIMEN [facility] Address: [address] [place], [place] [address]Performed By: #### 58887-2 #### [facility] CLIA [id number] [address] [place] [address] [place] OF AMERICAWBC (Bld) [#/Vol]12.03 10*3/uLHigh 3.70-11.00[place] HospitalComment on above:Order Comment: Specimen Type: BLOOD SPECIMEN [facility] Address: [address] [place], [place] [address]Performed By: #### 72619-7 #### [facility] CLIA [id number] [address] OF MAGRUDER HOSPITALErythrocyte distribution width (RBC) [Ratio]17.2 %High11.5-15.0[facility] HospitalComment on above:Order Comment: Specimen Type: BLOOD SPECIMEN [facility] Address: [address] [place], [place] [address]Performed By: #### 54947-6 #### [facility] CLIA [id number] [address] [place], [place] [address]Hematocrit (Bld) [Volume fraction] 30.9 %Low39.0-51.0[facility] HospitalComment on above:Order Comment: Specimen Type: BLOOD SPECIMEN [facility] Address: [address] [place], [place] [address]Performed By: #### 45512-1 #### [facility] CLIA [id number] [address] [place], [place] [address]Hemoglobin (Bld) [Mass/Vol]9.8 g/dL Low13.0-17.0[place] HospitalComment on above:Order Comment: Specimen Type: BLOOD SPECIMEN [facility] Address: [address] [place], [place] [address]Performed By: #### 85227-8 #### [facility] CLIA [id number] [address] [place] [address] (RBC) [Entitic mass]28.8 pg Pltnlb89.0-34.0[facility] HospitalComment on above:Order Comment: Specimen Type: BLOOD SPECIMEN [facility] Address: [address] [place], [place] [address]Performed By: #### 32058-0 #### [facility] CLIA [id number] [address] [place] [address] (RBC) [Mass/Vol]31.7 g/dLNormal 30.5-36.0[facility] HospitalComment on above:Order Comment: Specimen Type: BLOOD SPECIMEN [facility] Address: [address] [place], [place] [address]Performed By: #### 76681-5 #### [facility] CLIA [id number] [address] [place], [place] [address]MCV (RBC) [Entitic vol]90.9 fLNormal 80.0-100.0[facility] HospitalComment on above:Order Comment: Specimen Type: BLOOD SPECIMEN [facility] Address: [address] [place], [place] [address]Performed By: #### 24836-5 #### [facility] CLIA [id number] [address] [place] [address] RBC (Bld) [#/Vol]10*3/uL Normal<0.01[facility] HospitalComment on above:Order Comment: Specimen Type: BLOOD SPECIMEN [facility] Address: [address] [place], [place] [address]Performed By: #### 23812-6 #### [facility] CLIA [id number] [address] [place] [address] [place] OF AMERICAPlatelet mean volume (Bld) [Entitic vol]10.6 fLNormal9.0-12.7[facility] HospitalComment on above:Order Comment: Specimen Type: BLOOD SPECIMEN [facility] Address: [address] [place], [place] [address]Performed By: #### 31949-7 #### [facility] CLIA [id number] [address] [place] [address] [place] OF AMERICAPlatelets (Bld) [#/Vol]166 10*3/uL Xjtezg364-025Henwnjeu HospitalComment on above:Order Comment: Specimen Type: BLOOD SPECIMEN [facility] Address: [address] [place], [place] [address]Performed By: #### 77401-7 #### [facility] CLIA [id number] [address] [place] [address] [place] OF AMERICARBC (Bld) [#/Vol]3.40 10*6/uLLow 4.20-6.00[facility] HospitalComment on above:Order Comment: Specimen Type: BLOOD SPECIMEN [facility] Address: [address] [place], [place] [address]Performed By: #### 32305-7 #### [facility] CLIA [id number] [address] [place] [address] [place] OF AMERICAWBC (Bld) [#/Vol]15.63 10*3/uLHigh 3.70-11.00[place] HospitalComment on above:Order Comment: Specimen Type: BLOOD SPECIMEN [facility] Address: [address] [place], [place] [address]Performed By: #### 26083-9 #### [facility] CLIA [id number] [address] [place] [address] [place] OF AMERICAErythrocyte distribution width (RBC) [Ratio]17.2 %High11.5-15.0[facility] HospitalComment on above:Order Comment: Specimen Type: BLOOD SPECIMEN [facility] Address: [address] [place], [place] [address]Performed By: #### 77090-5, 63926-2 #### [facility] CLIA [id number] [address] [place] [address] [place] OF AMERICAHematocrit (Bld) [Volume fraction] 27.5 %Low39.0-51.0[facility] HospitalComment on above:Order Comment: Specimen Type: BLOOD SPECIMEN [facility] Address: [address] [place], [place] [address]Performed By: #### 47604-9, 42109-8 #### [facility] CLIA [id number] [address] [place] [address] [place] AMERICAHemoglobin (Bld) [Mass/Vol]9.0 g/dL Low13.0-17.0[facility] HospitalComment on above:Order Comment: Specimen Type: BLOOD SPECIMEN [facility] Address: [address] [place], [place] [address]Performed By: #### 20013-4, 98353-1 #### [facility] CLIA [id number] [address] [place] [address] (RBC) [Entitic mass]28.7 pg Xqmgtz05.0-34.0[facility] HospitalComment on above:Order Comment: Specimen Type: BLOOD SPECIMEN [facility] Address: [address] [place], [place] [address]Performed By: #### 51207-2, 28269-4 #### [facility] CLIA [id number] [address] [place] [address] (RBC) [Mass/Vol]32.7 g/dLNormal 30.5-36.0[facility] HospitalComment on above:Order Comment: Specimen Type: BLOOD SPECIMEN [facility] Address: [address] [place], [place] [address]Performed By: #### 73636-0, 15164-3 #### [facility] CLIA [id number] [address] [place] [address] (RBC) [Entitic vol]87.6 fLNormal 80.0-100.0[facility] HospitalComment on above:Order Comment: Specimen Type: BLOOD SPECIMEN [facility] Address: [address] [place], [place] [address]Performed By: #### 50778-2, 48798-6 #### [facility] CLIA [id number] [address] [place] [address] RBC (Bld) [#/Vol]10*3/uL Normal<0.01[facility] HospitalComment on above:Order Comment: Specimen Type: BLOOD SPECIMEN [facility] Address: [address] [place], [place] [address]Performed By: #### 27972-5, 07747-0 #### [facility] CLIA [id number] [address] [place] [address] [place] AMERICAPlatelet mean volume (Bld) [Entitic vol]10.2 fLNormal9.0-12.7[facility] HospitalComment on above:Order Comment: Specimen Type: BLOOD SPECIMEN [facility] Address: [address] [place], [place] [address]Performed By: #### 34511-8, 98393-7 #### [facility] CLIA [id number] [address] [place] [address] [place] AMERICAPlatelets (Bld) [#/Vol]161 10*3/uL Hnceve349-351Ilgrigpw HospitalComment on above:Order Comment: Specimen Type: BLOOD SPECIMEN [facility] Address: [address] [place], [place] [address]Performed By: #### 02041-2, 15028-7 #### [facility] CLIA [id number] [address] [place] [address] [place] OF AMERICARBC (Bld) [#/Vol]3.14 10*6/uLLow 4.20-6.00[facility] HospitalComment on above:Order Comment: Specimen Type: BLOOD SPECIMEN [facility] Address: [address] [place], [place] [address]Performed By: #### 93656-1, 77680-8 #### [facility] CLIA [id number] [address] [place] [address] [place] OF AMERICAWBC (Bld) [#/Vol]14.29 10*3/uLHigh 3.70-11.00[place] HospitalComment on above:Order Comment: Specimen Type: BLOOD SPECIMEN [facility] Address: [address] [place], [place] [address]Performed By: #### 19170-0, 42464-3 #### [facility] CLIA [id number] [address] [place] [address] [place] OF AMERICAErythrocyte distribution width (RBC) [Ratio]16.8 %High11.5-15.0[place] HospitalComment on above:Order Comment: Specimen Type: BLOOD SPECIMEN [facility] Address: [address] [place], [place] [address]Performed By: #### 90318-8 #### [facility] CLIA [id number] [address] [place] [address] [place] AMERICAErythrocyte distribution width (RBC) [Ratio]16.7 %High11.5-15.0[facility] HospitalComment on above:Order Comment: Specimen Type: BLOOD SPECIMEN [facility] Address: [address] [place], [place] [address]Performed By: #### 63589-8 #### [facility] CLIA [id number] [address] [place] [address] [place] OF AMERICAHematocrit (Bld) [Volume fraction] 27.7 %Low39.0-51.0[facility] HospitalComment on above:Order Comment: Specimen Type: BLOOD SPECIMEN [facility] Address: [address] [place], [place] [address]Performed By: #### 24793-7 #### [facility] CLIA [id number] [address] [place] [address] [place] AMERICAHematocrit (Bld) [Volume fraction] 27.5 %Low39.0-51.0[place] HospitalComment on above:Order Comment: Specimen Type: BLOOD SPECIMEN [facility] Address: [address] [place], [place] [address]Performed By: #### 99459-4 #### [facility] CLIA [id number] [address] [place] [address] [place] AMERICAHemoglobin (Bld) [Mass/Vol]8.9 g/dL Low13.0-17.0[place] HospitalComment on above:Order Comment: Specimen Type: BLOOD SPECIMEN [facility] Address: [address] [place], [place] [address]Performed By: #### 62272-0 #### [facility] CLIA [id number] [address]formed By: #### 56798-4 #### [facility] CLIA [id number] [address] (RBC) [Entitic mass]28.3 pg Djqupq06.0-34.0[facility] HospitalComment on above:Order Comment: Specimen Type: BLOOD SPECIMEN [facility] Address: [address] [place], [place] [address]Performed By: #### 21000-1 #### [facility] CLIA [id number] [address] OF [facility] (RBC) [Entitic mass]28.5 pg Matlwe45.0-34.0[facility] HospitalComment on above:Order Comment: Specimen Type: BLOOD SPECIMEN [facility] Address: [address] [place], [place] [address]Performed By: #### 54991-0 #### [facility] CLIA [id number] OF [facility] (RBC) [Mass/Vol]32.1 g/dLNormal 30.5-36.0[facility] HospitalComment on above:Order Comment: Specimen Type: BLOOD SPECIMEN [facility] Address: [address] [place], [place] [address]Performed By: #### 68837-8 #### [facility] CLIA [id number] [address] OF [facility] (RBC) [Mass/Vol]32.4 g/dLNormal 30.5-36.0[facility] HospitalComment on above:Order Comment: Specimen Type: BLOOD SPECIMEN [facility] Address: [address] [place], [place] [address]Performed By: #### 22299-4 #### [facility] CLIA [id number] [place] [address] (RBC) [Entitic vol]87.9 fLNormal 80.0-100.0[facility] HospitalComment on above:Order Comment: Specimen Type: BLOOD SPECIMEN [facility] Address: [address] [place], [place] [address]Performed By: #### 98860-6 #### [facility] CLIA [id number] [address] [place] [address] STATES OF MAGRUDER HOSPITALMCV (RBC) [Entitic vol]88.1 fLNormal 80.0-100.0[facility] HospitalComment on above:Order Comment: Specimen Type: BLOOD SPECIMEN [facility] Address: [address] [place], [place] [address]Performed By: #### 20960-4 #### [facility] CLIA [id number] [address] [place] [address] STATES AMERICANucleated RBC (Bld) [#/Vol]10*3/uL Normal<0.01FaHudson HospitalComment on above:Order Comment: Specimen Type: BLOOD SPECIMEN [facility] Address: [address] [place], [place] [address]Performed By: #### 66677-8 #### [facility] CLIA [id number] [address] [place] [address] OF AMERICAPerformed By: #### 63613-5 #### [facility] CLIA [id number] [address] [place] [address] [place] AMERICAPlatelet mean volume (Bld) [Entitic vol]10.2 fLNormal9.0-12.7[facility] HospitalComment on above:Order Comment: Specimen Type: BLOOD SPECIMEN [facility] Address: [address] [place], [place] [address]Performed By: #### 99985-3 #### [facility] CLIA [id number] [address] [place] [address] [place] AMERICAPlatelet mean volume (Bld) [Entitic vol]10.6 fLNormal9.0-12.7[facility] HospitalComment on above:Order Comment: Specimen Type: BLOOD SPECIMEN [facility] Address: [address] [place], [place] [address]Performed By: #### 24502-4 #### [facility] CLIA [id number] [address] [place] [address] [place] AMERICAPlatelets (Bld) [#/Vol]151 10*3/uL Xjbwkn856-401Ytxjmvak HospitalComment on above:Order Comment: Specimen Type: BLOOD SPECIMEN [facility] Address: [address] [place], [place] [address]Performed By: #### 97818-1 #### [facility] CLIA [id number] [address] [place] [address] [place] AMERICAPlatelets (Bld) [#/Vol]156 10*3/uL Xauijy592-408Kxbbvisu HospitalComment on above:Order Comment: Specimen Type: BLOOD SPECIMEN [facility] Address: [address] [place], [place] [address]Performed By: #### 29938-4 #### [facility] CLIA [id number] [address] [place] [address] [place] AMERICARBC (Bld) [#/Vol]3.15 10*6/uLLow 4.20-6.00[place] HospitalComment on above:Order Comment: Specimen Type: BLOOD SPECIMEN [facility] Address: [address] [place], [place] [address]Performed By: #### 32239-0 #### [facility] CLIA [id number] [address] [place] [address] [place] AMERICARBC (Bld) [#/Vol]3.12 10*6/uLLow 4.20-6.00[place] HospitalComment on above:Order Comment: Specimen Type: BLOOD SPECIMEN [facility] Address: [address] [place], [place] [address]Performed By: #### 12211-3 #### [facility] CLIA [id number] [address] [place] [address] [place] AMERICAWBC (Bld) [#/Vol]14.80 10*3/uLHigh 3.70-11.00[place] HospitalComment on above:Order Comment: Specimen Type: BLOOD SPECIMEN [facility] Address: [address] [place], [place] [address]Performed By: #### 22408-9 #### [facility] CLIA [id number] [address] [place] [address] [place] AMERICAWBC (Bld) [#/Vol]14.51 10*3/uLHigh 3.70-11.00[place] HospitalComment on above:Order Comment: Specimen Type: BLOOD SPECIMEN [facility] Address: [address] [place], [place] [address]Performed By: #### 61869-8 #### [facility] CLIA [id number] [address] [place] [address] [place] AMERICAErythrocyte distribution width (RBC) [Ratio]16.6 %High11.5-15.0[facility] HospitalComment on above:Order Comment: Specimen Type: BLOOD SPECIMEN [facility] Address: [address] [place], [place] [address]Performed By: #### 95522-5, 25397-7 #### [facility] CLIA [id number] [address] [place] [address] [place] AMERICAHematocrit (Bld) [Volume fraction] 19.7 %Low39.0-51.0[facility] HospitalComment on above:Order Comment: Specimen Type: BLOOD SPECIMEN [facility] Address: [address] [place], [place] [address]Performed By: #### 09505-4, 55362-9 #### [facility] CLIA [id number] [address] [place] [address] [place] AMERICAHemoglobin (Bld) [Mass/Vol]6.3 g/dL Low13.0-17.0[facility] HospitalComment on above:Order Comment: Specimen Type: BLOOD SPECIMEN [facility] Address: [address] [place], [place] [address]Performed By: #### 11966-9, 40816-2 #### [facility] CLIA [id number] [address] [place] [address] (RBC) [Entitic mass]28.4 pg Wuhirk59.0-34.0[facility] HospitalComment on above:Order Comment: Specimen Type: BLOOD SPECIMEN [facility] Address: [address] [place], [place] [address]Performed By: #### 23276-4, 36080-5 #### [facility] CLIA [id number] [address] [place] [address] (RBC) [Mass/Vol]32.0 g/dLNormal 30.5-36.0[facility] HospitalComment on above:Order Comment: Specimen Type: BLOOD SPECIMEN [facility] Address: [address] [place], [place] [address]Performed By: #### 15171-6, 69325-6 #### [facility] CLIA [id number] [address] [place] [address] (RBC) [Entitic vol]88.7 fLNormal 80.0-100.0[facility] HospitalComment on above:Order Comment: Specimen Type: BLOOD SPECIMEN [facility] Address: [address] [place], [place] [address]Performed By: #### 78007-9, 21586-1 #### [facility] CLIA [id number] [address] [place], [place] [address]ucleated RBC (Bld) [#/Vol]10*3/uL Normal<0.01[facility] HospitalComment on above:Order Comment: Specimen Type: BLOOD SPECIMEN Ordering Facility: [facility] Address: [address] [place], [place] [address]Performed By: #### 01560-8, 09685-7 #### [facility] CLIA [id number] [address] [place], [place] [address]Platelet mean volume (Bld) [Entitic vol]10.0 fLNormal9.0-12.7[facility] HospitalComment on above:Order Comment: Specimen Type: BLOOD SPECIMEN Ordering Facility: [facility] Address: [address] [place], [place] [address]Performed By: #### 53940-7, 78907-6 #### [facility] CLIA [id number] [address] [place], [place] [address]Platelets (Bld) [#/Vol]110 10*3/uL [id number] HospitalComment on above:Order Comment: Specimen Type: BLOOD SPECIMEN Ordering Facility: [facility] Address: [address] [place], [place] [address]Performed By: #### 18297-0, 54699-8 #### [facility] CLIA [id number] [address] [place], [place] [address]RB (Bld) [#/Vol]2.22 10*6/uLLow 4.20-6.00[facility] HospitalComment on above:Order Comment: Specimen Type: BLOOD SPECIMEN Ordering Facility: [facility] Address: [address] [address] [place], [place] [address]Performed By: #### 64435-5, 64996-7 #### [facility] CLIA [id number] [address] [place], [place] [address]W (d) [#/Vol]10.10 10*3/uLNormal 3.70-11.00[place] HospitalComment on above:Order Comment: Specimen Type: BLOOD SPECIMEN [facility]ing Facility: [facility] Address: [address] [place], [place] [address]Performed By: #### 55118-2, 06045-9 #### [facility] CLIA [id number] [address] [place], [place] [address]Comprehensive metabolic 2000 panelon 39-32-9089Cikyqmp [Mass/Vol]1.7 g/dLLow3.9-4.9[facility] HospitalComment on above:Order Comment: Specimen Type: BLOOD SPECIMEN [facility]ing [facility]: [facility] Address: [address] [place], [place] [address]Performed By: #### 97562-6 #### [facility] CLIA [id number] [place] [address] [place] AMERICAALP [Catalytic activity/Vol]53 U/L Fuxykr39-196Nfkmsyup HospitalComment on above:Order Comment: Specimen Type: BLOOD SPECIMEN [facility]: [facility] Address: [address] [place], [place] [address]Performed By: #### 16837-3 #### [facility] CLIA [id number] [address] [place] [address] [place] AMERICAALT [Catalytic activity/Vol]11 U/L Yptmvk26-01Dcvhsmqh HospitalComment on above:Order Comment: Specimen Type: BLOOD SPECIMEN [facility]: [facility] Address: [address] [place], [place] [address]Performed By: #### 40985-2 #### [facility] CLIA [id number] [address] [place] [address] [place] AMERICAAnion gap [Moles/Vol]11 mmol/LNormal 8-15[facility] HospitalComment on above:Order Comment: Specimen Type: BLOOD SPECIMEN [facility]: [facility] Address: [address] [place], [place] [address]Performed By: #### 85427-9 #### [facility] CLIA [id number] [address] [place] [address] [place] AMERICAAST [Catalytic activity/Vol]12 U/L Xzg85-45Bxfevekf HospitalComment on above:Order Comment: Specimen Type: BLOOD SPECIMEN [facility]: [facility] Address: [address] [place], [place] [address]Performed By: #### 55781-2 #### [facility] CLIA [id number] [address] [place] [address] [place] AMERICABilirubin [Mass/Vol]0.4 mg/dLNormal 0.2-1.3[facility] HospitalComment on above:Order Comment: Specimen Type: BLOOD SPECIMEN [facility]: [facility] Address: [address] [place], [place] [address]Performed By: #### 21614-6 #### [facility] CLIA [id number] [address] [place] [address] [place] AMERICACalcium [Mass/Vol]4.2 mg/dLLow 8.5-10.2[facility] HospitalComment on above:Order Comment: Specimen Type: BLOOD SPECIMEN [facility]: [facility] Address: [address] [place], [place] [address]Performed By: #### 65113-0 #### [facility] CLIA [id number] [address] [place] [address] [place] AMERICAChloride [Moles/Vol]130 mmol/LHigh 98-107[place] HospitalComment on above:Order Comment: Specimen Type: BLOOD SPECIMEN [facility]: [facility] Address: [address] [place], [place] [address]Performed By: #### 76354-8 #### [facility] CLIA [id number] [address] [place] [address] [place] AMERICACO2 [Moles/Vol]8 mmol/LCritically ans67-27BpwmvizmFederal Medical Center, DevensComment on above:Order Comment: Specimen Type: BLOOD SPECIMEN [facility] Address: [address] [place], [place] [address]Performed By: #### 47392-2 #### [facility] CLIA [id number] [address] [place] [address] [place] AMERICACreatinine [Mass/Vol]0.88 mg/dL Normal0.73-1.22[facility], DevensComment on above:Order Comment: Specimen Type: BLOOD SPECIMEN [facility] Address: [address] [place], [place] [address]Performed By: #### 70651-3 #### [facility] CLIA [id number] [address] [place] [address] [place] AMERICACreatinine and Glomerular filtration rate.predicted panel (S/P/Bld)93 mL/min/1.73m???Normal>=60[facility] Comment on above:Order Comment: Specimen Type: BLOOD SPECIMEN [facility]ing Facility: [facility] Address: [address] [place], [place] [address]Result Comment: Estimated Glomerular Filtration Rate (eGFR) is calculated using the 2020 CKD-EPI cre atinine equation. This equation utilizes serum creatinine, sex, and age as parameters. The creatinine assay has traceable calibration to isotope dilution- mass spectrometry. Refer to KDIGO guidelines for clinical interpretation. In patients with unstable renal function, e.g. those with acute kidney injury, the eGFR may not accurately reflect actual GFR.Performed By: #### 24355-6 #### [facility] CLIA [id number] [address] [place] [address] [place] AMERICAGlucose [Mass/Vol]73 mg/bHUov94-78 [facility] Hospitalment on above:Order Comment: Specimen Type: BLOOD SPECIMEN [facility]: [facility] Address: [address] [place], [place] [address]Result Comment: The [place] Diabetes Association (ADA) provides guidance for cutoff [...] Standards of Medical Care in Diabetes 2016, [place] [employer]. Diabetes Care. 2016.39(Suppl 1).Performed By: #### 81406-5 #### [facility] CLIA [id number] [address] [place] [address] [place] AMERICAPotassium [Moles/Vol]2.0 mmol/L Critically low3.7-5.1FPr[facility] / [facility] HospitalComment on above:Order Comment: Specimen Type: BLOOD SPECIMEN [facility] Address: [address] [place], [place] [address]Performed By: #### 74676-5 #### [facility] CLIA [id number] [address] [place] [address] [place] AMERICAProtein [Mass/Vol]2.6 g/dLLow6.3-8.0 [facility], DevensComment on above:Order Comment: Specimen Type: BLOOD SPECIMEN [facility] Address: [address] [place], [place] [address]Performed By: #### 94920-2 #### [facility] CLIA [id number] [address] [place] [address] [place] AMERICASodium [Moles/Vol]149 mmol/LHigh 136-144FaHudson HospitalComment on above:Order Comment: Specimen Type: BLOOD SPECIMEN [facility] Address: [address] [place], [place] [address]Performed By: #### 37388-8 #### [facility] CLIA [id number] [address] [place] [address] [place] AMERICAUrea nitrogen [Mass/Vol]23 mg/dL Normal9-24[facility] DevensComment on above:Order Comment: Specimen Type: BLOOD SPECIMEN [facility] Address: [address] [place], [place] [address]Performed By: #### 79438-1 #### [facility] CLIA [id number] [address] [place] [address] [place] AMERICAANES POSTPROC EVALon [id number] POSTPROC EVALHNO ID: [id number] Author: PATRICIA TOMLIN MD Service: Anesthesiology Author Type: Anesthesiologist Type: Anesthesia Postprocedure Evaluation Filed: 02/23/2025 17:23 Note Text: POST ANESTHESIA EVALUATION NOTE : 1955 Procedure Summary Date: 02/23/25 Room / [facility] - ENDO Anesthesia Start: 1422 Anesthesia Stop: 1528 Procedure: EGD DIAGNOSTIC Diagnosis: (Suspected upper GI bleeding) Scheduled Providers: Pratik Winters MD Responsible Provider: Patricia Tomlin MD Anesthesia Type: MAC ASA Status: 3 Anesthesia Type: MAC Last Vitals Vitals Value Taken Time Arterial BP 1 221/91 02/23/25 1721 Temp 02/23/25 1722 Pulse 109 02/23/25 1721 Resp 19 02/23/25 1721 SpO2 100 % 02/23/25 1721 Vitals shown include unfiled device data. Post Anesthesia Patient Status Patient Evaluation: ICU. PACU/ICU Patient Condition: guarded. Anticipated Disposition: ICU planned admission. Neurological Status: sedated. Pulmonary Status: on mechanical ventilation (invasive ventilation) Airway Control: intubated on mechanical ventilation. Cardiovascular Status: stable. Pain Management: clinically adequate Postoperative Hydration: acceptable. Intraoperative Events: (Acute hypotension prompting aggressive resuscitation and an emergent arterial line) Post Operative Nausea/Vomiting Status: no significant post operative nausea or vomiting Recommendation: further care per PACU/ICU/floor team. Anesthesia Observations No Documentation SIGNATURE: Patricia Tomlin MD PATIENT NAME: Aisha Julien DATE: February 23, 2025 TIME: 5:22 PM CSN: [id number] [facility] PRE-OPon 60-10-1977LNJE PRE-OPHNO ID: [id number] Author: PATRICIA TOMLIN MD Service: Anesthesiology Author Type: Anesthesiologist Type: Anesthesia Preprocedure Evaluation Filed: 02/23/2025 14:16 Note Text: ANESTHESIOLOGY DAY OF SURGERY NOTE : 1955 Procedure Information Date/Time: 02/23/25 1430 Scheduled providers: Pratik Winters MD; Diogo Blankenship APRN.INSPECTOR POISING Procedure: EGD DIAGNOSTIC Location: [facility] End[facility] - ENDO Estimated body mass index is 24.84 kg/m? as calculated from the following: Height as of this encounter: 176.5 cm (5' 9.5 ). Weight as of this encounter: 77.4 kg (170 lb 10.2 oz). 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 Tracheostomy tube not present Mallampati: II. TM distance: >3 FB. Neck ROM: full ROM without neurological symptoms. Mouth opening: adequate. Short neck: no. Thick neck: yes DENTAL Dental findings: chipped. Additional comments: Fine chips noted in 03/01/////. Additional exam findings: yes. CARDIOVASCULAR Rhythm: regular Rate: normal PULMONARY Breath sounds clear to auscultation. II - ANESTHESIA PLAN ASA Score: 3 Anesthetic Plan: MAC The patient is not a current smoker. NPO Status: adequate Beta Keshawn Monitoring Plan Monitoring plan: standard ASA. Post Procedure Analgesic Plan Postoperative analgesic plan: multimodal analgesia. Informed Consent Anesthetic risks, benefits, alternatives, personnel and consent discussed: yes. Patient / Responsible Constitution Party agrees to proceed: yes Patient / Surrogate agrees to blood products: Yes Significant changes in the patient condition since the History and Physical, not otherwise documented in primary service progress note: no. Potential Anesthesia issues that may suggest increased risk of complications or contraindication to planned procedure: none. Vitals Value Taken Time BP 129/65 02/23/25 1407 Pulse 90 02/23/25 1407 Resp 16 02/23/25 1407 Temp 36.5 ?C (97.7 ?F) 02/23/25 1407 SpO2 98 % 02/23/25 1407 Facility-Administered Medications as of 02/23/2025 Medication Dose Route Frequency [Transfer Hold] NaCl 0.9% iv flush bag 20 mL INTRAVENOUS PRN [Transfer Hold] pantoprazole 40 mg injection (PROTONIX) 40 mg INTRAVENOUS BID AC (0600/1600) thiamine 200 mg injection 200 mg INTRAVENOUS q 8 H Followed by [START ON 02/26/2025] thiamine 100 mg tab(s) (VITAMIN B1) 100 mg ORAL/FEEDING TUBE TID Outpatient Medications as of 02/23/2025 Medication Sig ferrous sulfate (IRON) 325 mg (65 mg iron) tablet Take 30 mg by mouth once daily. losartan (COZAAR) 100 mg tablet Take 100 mg by mouth once daily. MULTIVITAMIN ORAL Take by mouth. I have interviewed and examined the patient. I have reviewed the medical record and/or the pre-anesthesia evaluation, pertinent labs, and test results. This contains updated information obtained within 48 hours of Surgery/Procedure. SIGNATURE: Patricia Tomlin MD PATIENT NAME: Aisha Julien DATE: February 23, 2025 TIME: 2:15 PM CSN: [id number] HospitalARTERIAL BLOOD GASESon 67-51-4143Xobs deficit (BldA) [Moles/Vol]-10 mmol/DFgl-9-4Wzgbklqv Hospital Comment on above:Order Comment: Specimen Type: BLOOD SPECIMEN [facility] Address: [address] [place], [place] [address]Performed By: #### 51998-5, 36239-0 #### [facility] CLIA [id number] [address] [place] [address] [place] AMERICABody .6 [degF]Normal [facility] DevensComment on above:Order Comment: Specimen Type: BLOOD SPECIMEN [facility] Address: [address] [place], [place] [address]Performed By: #### 78151-0, #### [facility] CLIA [id number] [address] [place] [address] [place] AMERICACalcium.ionized (Bld) [Mass/Vol]1.26 mmol/LNormal1.08-1.30[facility], DevensComment on above:Order Comment: Specimen Type: BLOOD SPECIMEN [facility] Address: [address] [place], [place] [address]Performed By: #### 56256-7, #### [facility] CLIA [id number] [address] [place] [address] STATES OF AMERICACalcium.ionized adjusted to pH 7.4 (BldA) [Moles/Vol]1.23 mmol/LNormal1.08-1.30[place] HospitalComment on above: Order Comment: Specimen Type: BLOOD SPECIMEN [facility]: [facility] Address: [address] [place], [place] [address]Performed By: #### 64307-0, 08203-6 #### [facility] CLIA [id number] [address] [place] [address] [place] AMERICACarboxyhemoglobin (BldA) [Mass fraction]0.7 %Normal0.0-2.0[facility] HospitalComment on above:Order Comment: Specimen Type: BLOOD SPECIMEN [facility] Address: [address] [place], [place] [address]Result Comment: Carboxyhemoglobin Reference Range for Smokers: 2.0-8.0%Performed By: #### 53174-9, 55745-2 #### [facility] CLIA [id number] [address] [place] [address] [place] AMERICACO2 (Bld) [Partial pressure]27 mm Hg Bmt37-08Rbtaongj HospitalComment on above:Order Comment: Specimen Type: BLOOD SPECIMEN [facility] Address: [address] [place], [place] [address]Performed By: #### 23207-6, 48827-5 #### [facility] CLIA [id number] [address] [place] [address] [place] OF TWFYTQUYAE160 %NormalFederal Medical Center, Devens Comment on above:Order Comment: Specimen Type: BLOOD SPECIMEN [facility] Address: [address] [place], [place] [address]Performed By: #### 82358-5, 02961-7 #### [facility] CLIA [id number] [address] [place] [address] [place] AMERICAGlucose [Mass/Vol]119 mg/dLHigh 60-105[place] HospitalComment on above:Order Comment: Specimen Type: BLOOD SPECIMEN [facility] Address: [address] [place], [place] [address]Performed By: #### 71765-1, 09319-6 #### [facility] CLIA [id number] [address] [place] [address] [place] AMERICAHCO3 (Bld) [Moles/Vol]15 mmol/LLow 22-26[facility], DevensComment on above:Order Comment: Specimen Type: BLOOD SPECIMEN [facility] Address: [address] [place], [place] [address]Performed By: #### 38443-5, 90199-4 #### [facility] CLIA [id number] [address] [place] [address] [place] AMERICAHematocrit (Bld) [Volume fraction] 27.0 %Low39.0-51.0[facility] HospitalComment on above:Order Comment: Specimen Type: BLOOD SPECIMEN [facility] Address: [address] [place], [place] [address]Performed By: #### 92064-7, 42635-3 #### [facility] CLIA [id number] [address] [place] [address] [place] AMERICAHemoglobin (Bld) [Mass/Vol]8.7 g/dL Low13.0-17.0[place] HospitalComment on above:Order Comment: Specimen Type: BLOOD SPECIMEN [facility] Address: [address] [place], [place] [address]Performed By: #### 31341-9, 64036-3 #### [facility] CLIA [id number] [address] [place] [address] [place] AMERICAINHALED TIDAL VOLUME (ML)480Normal [place] HospitalComment on above:Order Comment: Specimen Type: BLOOD SPECIMEN [facility] Address: [address] [place], [place] [address]Performed By: #### 51853-5, 87899-8 #### [facility] CLIA [id number] [address] [place] [address] [place] AMERICALactate [Moles/Vol]0.9 mmol/LNormal 0.5-2.2[facility] HospitalComment on above:Order Comment: Specimen Type: BLOOD SPECIMEN [facility] Address: [address] [place], [place] [address]Performed By: #### 28413-3, 18471-7 #### [facility] CLIA [id number] [address] [place] [address] [place] AMERICAMethemoglobin (Bld) [Mass fraction] 1.0 %Normal0.0-1.5F[facility] HospitalComment on above:Order Comment: Specimen Type: BLOOD SPECIMEN [facility] Address: [address] [place], [place] [address]Performed By: #### 66372-6, 67745-4 #### [facility] CLIA [id number] [address] [place] [address] [place] AMERICAO2 THERAPYVENT=VentilatorNormal [place] HospitalComment on above:Order Comment: Specimen Type: BLOOD SPECIMEN [facility] Address: [address] [place], [place] [address]Performed By: #### 05388-7, 50563-9 #### [facility] CLIA [id number] [address] [place] [address] [place] AMERICAOxygen (Bld) [Partial pressure]125 mm RnAnxs28-40Inldycqo HospitalComment on above:Order Comment: Specimen Type: BLOOD SPECIMEN [facility] Address: [address] [place], [place] [address]Performed By: #### 49685-5, 88098-3 #### [facility] CLIA [id number] [address] [place] [address] [place] MAGRUDER HOSPITALOxyhemoglobin (BldA) [Mass fraction] 97 %Ftrmyd01-28Embglert HospitalComment on above:Order Comment: Specimen Type: BLOOD SPECIMEN [facility] Address: [address] [place], [place] [address]Performed By: #### 07023-7, 75068-5 #### [facility] CLIA [id number] [address] [place] [address] [place] AMERICAPEEP/CPAP5 tuD7UBawaypEdwdtoqx HospitalComment on above:Order Comment: Specimen Type: BLOOD SPECIMEN [facility] Address: [address] [place], [place] [address]Performed By: #### 96642-2, 18046-9 #### [facility] CLIA [id number] [address] [place] [address] [place] AMERICApH (Bld)7.35 [pH]Normal7.35-7.45 [place] HospitalComment on above:Order Comment: Specimen Type: BLOOD SPECIMEN [facility] Address: [address] [place], [place] [address]Performed By: #### 26572-4, 08201-3 #### [facility] CLIA [id number] [address] [place] [address] [place] AMERICAPO2 / FIO2 ZTQVV384 mmHgNormal>300 [facility] DevensComment on above:Order Comment: Specimen Type: BLOOD SPECIMEN [facility] Address: [address] [place], [place] [address]Performed By: #### 02846-4, 63071-2 #### [facility] CLIA [id number] [address] [place] [address] [place] AMERICAPotassium [Moles/Vol]3.7 mmol/L Normal3.5-5.0[facility], DevensComment on above:Order Comment: Specimen Type: BLOOD SPECIMEN [facility] Address: [address] [place], [place] [address]Performed By: #### 81105-8, 24686-7 #### [facility] CLIA [id number] [address] [place] [address] OF AMERICASET VENTILATOR RESPIRATORY RATE (BPM)16 BPMNormalFederal Medical Center, DevensComment on above:Order Comment: Specimen Type: BLOOD SPECIMEN [facility] Address: [address] [place], [place] [address]Performed By: #### 73257-1, 11836-5 #### [facility] CLIA [id number] [address] [place] [address] [place] AMERICASodium [Moles/Vol]146 mmol/LHigh 136-144[facility], DevensComment on above:Order Comment: Specimen Type: BLOOD SPECIMEN [facility] Address: [address] [place], [place] [address]Performed By: #### 16208-7, 14292-7 #### [facility] CLIA [id number] [address] [place] [address] OF AMERICACBC panel Auto (Bld)on 02-23-2025 Erythrocyte distribution width (RBC) [Ratio]16.2 %High11.5-15.0[facility] Comment on above:Order Comment: Specimen Type: BLOOD SPECIMEN [facility] Address: [address] [place], [place] [address]Performed By: #### 99987-8 #### [facility] CLIA [id number] [address] [place] [address] [facility]—PARHAM CAMPUSHematocrit (Bld) [Volume fraction] 28.7 %Low39.0-51.0[facility] HospitalComment on above:Order Comment: Specimen Type: BLOOD SPECIMEN [facility] Address: [address] [place], [place] [address]Performed By: #### 93576-8 #### [facility] CLIA [id number] [address] [place] [address] [facility] OF AMERICAHemoglobin (Bld) [Mass/Vol]9.6 g/dL Low13.0-17.0[facility] HospitalComment on above:Order Comment: Specimen Type: BLOOD SPECIMEN [facility] Address: [address] [place], [place] [address]Performed By: #### 15617-0 #### [facility] CLIA [id number] [address] [place], [place] [address]MCH (RBC) [Entitic mass]28.9 pg Wkznyo09.0-34.0[facility] HospitalComment on above:Order Comment: Specimen Type: BLOOD SPECIMEN [facility] Address: [address] [place], [place] [address]Performed By: #### 04497-5 #### [facility] CLIA [id number] [address] [place] [address] [facility] OF MAGRUDER HOSPITALMCHC (RBC) [Mass/Vol]33.4 g/dLNormal 30.5-36.0[facility] HospitalComment on above:Order Comment: Specimen Type: BLOOD SPECIMEN [facility] Address: [address] [place], [place] [address]Performed By: #### 40741-0 #### [facility] CLIA [id number] [address] [place], [place] [address]MCV (RBC) [Entitic vol]86.4 fLNormal 80.0-100.0[facility] HospitalComment on above:Order Comment: Specimen Type: BLOOD SPECIMEN [facility] Address: [address] [place], [place] [address]Performed By: #### 10862-8 #### [facility] CLIA [id number] [address] [place] [address] [place] AMERICANucleated RBC (Bld) [#/Vol]10*3/uL Normal<0.01[facility] HospitalComment on above:Order Comment: Specimen Type: BLOOD SPECIMEN [facility] Address: [address] [place], [place] [address]Performed By: #### 15066-8 #### [facility] CLIA [id number] [address] [place] [address] [place] AMERICAPlatelet mean volume (Bld) [Entitic vol]10.4 fLNormal9.0-12.7Fmelrosewakefield [facility] HospitalComment on above:Order Comment: Specimen Type: BLOOD SPECIMEN [facility] Address: [address] [place], [place] [address]Performed By: #### 94598-8 #### [facility] CLIA [id number] [address] [place] [address] [place] AMERICAPlatelets (Bld) [#/Vol]172 10*3/uL Vnldrf282-309Vbvzwens HospitalComment on above:Order Comment: Specimen Type: BLOOD SPECIMEN [facility] Address: [address] [place], [place] [address]Performed By: #### 20066-4 #### [facility] CLIA [id number] [address] [place] [address] [place] AMERICARBC (Bld) [#/Vol]3.32 10*6/uLLow 4.20-6.00[facility] HospitalComment on above:Order Comment: Specimen Type: BLOOD SPECIMEN [facility] Address: [address] [place], [place] [address]Performed By: #### 76374-9 #### [facility] CLIA [id number] [address] [place] [address] [place] AMERICAWBC (Bld) [#/Vol]13.58 10*3/uLHigh 3.70-11.00[place] HospitalComment on above:Order Comment: Specimen Type: BLOOD SPECIMEN [facility] Address: [address] [place], [place] [address]Performed By: #### 76412-1 #### [facility] CLIA [id number] [address] [place] [address] [place] AMERICAErythrocyte distribution width (RBC) [Ratio]16.1 %High11.5-15.0[facility] HospitalComment on above:Order Comment: Specimen Type: BLOOD SPECIMEN [facility] Address: [address] [place], [place] [address]Performed By: #### 68025-2, 98258-7 #### [facility] CLIA [id number] [address] [place] [address] [place] STATES OF AMERICAHematocrit (Bld) [Volume fraction] 27.3 %Low39.0-51.0[facility] HospitalComment on above:Order Comment: Specimen Type: BLOOD SPECIMEN Ordering Facility: [facility] Address: [address] [place], [place] [address]Performed By: #### 35347-2, 19778-8 #### [facility] CLIA [id number] [address] [place] [address] [place] AMERICAHemoglobin (Bld) [Mass/Vol]8.8 g/dL Low13.0-17.0[facility] HospitalComment on above:Order Comment: Specimen Type: BLOOD SPECIMEN [facility]ing Facility: [facility] Address: [address] [place], [place] [address]Performed By: #### 80994-6, 00362-2 #### [facility] CLIA [id number] [address] [place] [address] [place] OF AMERICAMCH (RBC) [Entitic mass]28.7 pg Anaewp53.0-34.0[facility] HospitalComment on above:Order Comment: Specimen Type: BLOOD SPECIMEN [facility]ing Facility: [facility] Address: [address] [place], [place] [address]Performed By: #### 36735-4, 84280-9 #### [facility] CLIA [id number] [address] [place], [place] [address]MCHC (RBC) [Mass/Vol]32.2 g/dLNormal 30.5-36.0[facility] HospitalComment on above:Order Comment: Specimen Type: BLOOD SPECIMEN [facility]: [facility] Address: [address] [place], [place] [address]Performed By: #### 06615-8, 06691-9 #### [facility] CLIA [id number] [address] [place], [place] [address]MCV (RBC) [Entitic vol]88.9 fLNormal 80.0-100.0[facility] HospitalComment on above:Order Comment: Specimen Type: BLOOD SPECIMEN [facility]: [facility] Address: [address] [place], [place] [address]Performed By: #### 64344-5, 83221-6 #### [facility] CLIA [id number] [address] [place] [address] STATES [facility] DISTRICT PSYCHIATRIC CENTERucleated RBC (Bld) [#/Vol]10*3/uL Normal<0.01[facility] HospitalComment on above:Order Comment: Specimen Type: BLOOD SPECIMEN [facility]: [facility] Address: [address] [place], [place] [address]Performed By: #### 81553-3, 17415-0 #### [facility] CLIA [id number] [address] [place] [address] [facility]AM CAMPUSPlatelet mean volume (Bld) [Entitic vol]10.1 fLNormal9.0-12.7[facility] HospitalComment on above:Order Comment: Specimen Type: BLOOD SPECIMEN [facility]: [facility] Address: [address] [place], [place] [address]Performed By: #### 33810-9, 40267-8 #### [facility] CLIA [id number] [address] [place] [address] [place] AMERICAPlatelets (Bld) [#/Vol]173 10*3/uL Ivgirw320-827Sar[facility] HospitalComment on above:Order Comment: Specimen Type: BLOOD SPECIMEN [facility]: [facility] Address: [address] [place], [place] [address]Performed By: #### 21148-7, 68191-1 #### [facility] CLIA [id number] [address] [place] [address] [place] AMERICARBC (Bld) [#/Vol]3.07 10*6/uLLow 4.20-6.00[facility] HospitalComment on above:Order Comment: Specimen Type: BLOOD SPECIMEN [facility]: [facility] Address: [address] [place], [place] [address]Performed By: #### 86357-9, 13950-2 #### [facility] CLIA [id number] [address] [place] [address] [place] AMERICAWBC (Bld) [#/Vol]7.90 10*3/uLNormal 3.70-11.00[place] HospitalComment on above:Order Comment: Specimen Type: BLOOD SPECIMEN [facility]ing [facility]: [facility] Address: [address] [place], [place] [address]Performed By: #### 09446-0, 74691-7 #### [facility] CLIA [id number] [address] [place] [address] [place] AMERICAErythrocyte distribution width (RBC) [Ratio]15.9 %High11.5-15.0[facility] HospitalComment on above:Order Comment: Specimen Type: BLOOD SPECIMEN [facility]: [facility] Address: [address] [place], [place] [address]Performed By: #### 99511-0, 56782-2 #### [facility] CLIA [id number] [address] [place] [address] [place] AMERICAHematocrit (Bld) [Volume fraction] 25.1 %Low39.0-51.0[facility] HospitalComment on above:Order Comment: Specimen Type: BLOOD SPECIMEN [facility]ing [facility]: [facility] Address: [address] [place], [place] [address]Performed By: #### 44430-5, 70731-6 #### [facility] CLIA [id number] [address] [place], [place] [address]Hemoglobin (Bld) [Mass/Vol]8.0 g/dL Low13.0-17.0[facility] HospitalComment on above:Order Comment: Specimen Type: BLOOD SPECIMEN [facility]: [facility] Address: [address] [place], [place] [address]Performed By: #### 03094-2, 57907-0 #### [facility] CLIA [id number] [address] [place] [address] (RBC) [Entitic mass]28.5 pg Nfffyb78.0-34.0[facility] HospitalComment on above:Order Comment: Specimen Type: BLOOD SPECIMEN [facility] Address: [address] [place], [place] [address]Performed By: #### 63128-9, 40010-2 #### [facility] CLIA [id number] [address] [place], [place] [address]MC (RBC) [Mass/Vol]31.9 g/dLNormal 30.5-36.0[place] HospitalComment on above:Order Comment: Specimen Type: BLOOD SPECIMEN [facility]ing [facility]: [facility] Address: [address] [place], [place] [address]Performed By: #### 42559-1, 17484-9 #### [facility] CLIA [id number] [address] [place] [address] (RBC) [Entitic vol]89.3 fLNormal 80.0-100.0[facility] HospitalComment on above:Order Comment: Specimen Type: BLOOD SPECIMEN [facility] Address: [address] [place], [place] [address]Performed By: #### 14735-0, 35662-0 #### [facility] CLIA [id number] [address] [place] [address] [place] OF AMERICANucleated RBC (Bld) [#/Vol]10*3/uL Normal<0.01[facility] HospitalComment on above:Order Comment: Specimen Type: BLOOD SPECIMEN [facility]: [facility] Address: [address] [place], [place] [address]Performed By: #### 11081-1, 59671-7 #### [facility] CLIA [id number] [address] [place] [address] [place] AMERICAPlatelet mean volume (Bld) [Entitic vol]9.8 fLNormal9.0-12.7[facility] HospitalComment on above:Order Comment: Specimen Type: BLOOD SPECIMEN [facility] Address: [address] [place], [place] [address]Performed By: #### 03562-0, 02001-5 #### [facility] CLIA [id number] [address] [place] [address] [place] AMERICAPlatelets (Bld) [#/Vol]160 10*3/uL Ztkbrk060-340Pgzpktvp HospitalComment on above:Order Comment: Specimen Type: BLOOD SPECIMEN [facility] Address: [address] [place], [place] [address]Performed By: #### 89324-3, 22087-1 #### [facility] CLIA [id number] [address] [place] [address] [place] AMERICARBC (Bld) [#/Vol]2.81 10*6/uLLow 4.20-6.00[facility] HospitalComment on above:Order Comment: Specimen Type: BLOOD SPECIMEN [facility] Address: [address] [place], [place] [address]Performed By: #### 38017-7, 81297-1 #### [facility] CLIA [id number] [address] [place] [address] [place] AMERICAWBC (Bld) [#/Vol]7.00 10*3/uLNormal 3.70-11.00[facility] HospitalComment on above:Order Comment: Specimen Type: BLOOD SPECIMEN [facility] Address: [address] [place], [place] [address]Performed By: #### 26801-0, 62072-3 #### [facility] CLIA [id number] [address] [place] [address] [facility] OF AMERICAErythrocyte distribution width (RBC) [Ratio]15.9 %High11.5-15.0[facility] HospitalComment on above:Order Comment: Specimen Type: BLOOD SPECIMEN [facility] Address: [address] [place], [place] [address]Performed By: #### 42455-2, 64674-6 #### [facility] CLIA [id number] [address] [place], [place] [address]Hematocrit (Bld) [Volume fraction] 31.5 %Low39.0-51.0[facility] HospitalComment on above:Order Comment: Specimen Type: BLOOD SPECIMEN [facility] Address: [address] [place], [place] [address]Performed By: #### 60804-0, 11173-8 #### [facility] CLIA [id number] [address] [place] [address] [place] AMERICAHemoglobin (Bld) [Mass/Vol]9.9 g/dL Low13.0-17.0[place] HospitalComment on above:Order Comment: Specimen Type: BLOOD SPECIMEN Ordering [facility]: [facility] Address: [address] [place], [place] [address]Performed By: #### 57765-6, 03877-5 #### [facility] CLIA [id number] [address] [place] [address] [place] AMERICAMCH (RBC) [Entitic mass]28.6 pg Eejykx72.0-34.0[facility] HospitalComment on above:Order Comment: Specimen Type: BLOOD SPECIMEN [facility]: [facility] Address: [address] [place], [place] [address]Performed By: #### 37967-0, 38994-8 #### [facility] CLIA [id number] [address] [place] [address] [facility]AM CAMPUSMCHC (RBC) [Mass/Vol]31.4 g/dLNormal 30.5-36.0[facility] HospitalComment on above:Order Comment: Specimen Type: BLOOD SPECIMEN [facility]: [facility] Address: [address] [place], [place] [address]Performed By: #### 64017-0, 96785-1 #### [facility] CLIA [id number] [address] [place], [place] [address]MCV (RBC) [Entitic vol]91.0 fLNormal 80.0-100.0[facility] HospitalComment on above:Order Comment: Specimen Type: BLOOD SPECIMEN [facility]: [facility] Address: [address] [place], [place] [address]Performed By: #### 28102-6, #### [facility] CLIA [id number] [address] [place] [address] AMERICANucleated RBC (Bld) [#/Vol]10*3/uL Normal<0.01[facility] HospitalComment on above:Order Comment: Specimen Type: BLOOD SPECIMEN [facility]ing [facility]: [facility] Address: [address] [place], [place] [address]Performed By: #### 97074-7, #### [facility] CLIA [id number] [address] [place] [address] [place] AMERICAPlatelet mean volume (Bld) [Entitic vol]11.3 fLNormal9.0-12.7[facility] HospitalComment on above:Order Comment: Specimen Type: BLOOD SPECIMEN [facility]: [facility] Address: [address] [place], [place] [address]Performed By: #### 87129-3, 33617-3 #### [facility] CLIA [id number] [address] [place] [address] [place] AMERICAPlatelets (Bld) [#/Vol]110 10*3/uL [id number] HospitalComment on above:Order Comment: Specimen Type: BLOOD SPECIMEN Ordering [facility]: [facility] Address: [address] [place], [place] [address]Performed By: #### 84301-7, 46570-9 #### [facility] CLIA [id number] [address] [place], [place] [address]RBC (Bld) [#/Vol]3.46 10*6/uLLow 4.20-6.00[facility] on above:Order Comment: Specimen Type: BLOOD SPECIMEN [facility] Address: [address] [place], [place] [address]Performed By: #### 14526-1, 45267-3 #### [facility] CLIA [id number] [address] [place], [place] [address]W (Bld) [#/Vol]8.42 10*3/uLNormal 3.70-11.00[facility] on above:Order Comment: Specimen Type: BLOOD SPECIMEN [facility] Address: [address] [place], [place] [address]Performed By: #### 54970-3, 63961-4 #### [facility] CLIA [id number] [address] [place], [place] [address]CONSULTon [id number] ID: [id number] Author: SUDHA SYED APRN.CNP Service: Gastroenterology Author Type: Nurse Practitioner Type: Consults Filed: 02/23/2025 14:44 Note Text: INITIAL CONSULT GASTROENTEROLOGY SERVICE DATE: 02/23/2025 SERVICE TIME: 12:35 PM Consulting Service: Gastroenterology Chief Complaint: Blood in emesis, rectal bleeding Opinion/advice regarding: Presented with hematemsis. 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 Per chart review, patient presented to OSH on 02/22/2025 for multiple episodes of bloody emesis and blood from his rectum. Pt reports abrupt onset of nausea and vomiting while laying on the sofa yesterday morning. He reports intense sharp periumbilical abdominal pain that was followed by multiple episodes of bloody emesis with clots. Pt reports abdominal pain improving with vomiting. He reports occasional blood in the stool prior to this episode, but not in that amount. He reports last blood noted in BM prior to transfer from OSH. Denies melena. Pt is not on OAC. He denies NSAID use. He denies smoking. Reports daily alcohol intake with 6-8 beers per day. Last drink was 2 days ago. Pt denies any drug use. Denies [facility] of GI cancers. Endorses previous EGD and colonoscopy in October of this year. PAST MEDICAL HISTORY Diagnosis Date Essential hypertension GERD (gastroesophageal reflux disease) PAST SURGICAL HISTORY Procedure Laterality Date ARTHROSCOPY KNEE DIAGNOSTIC W/WO SYNOVIAL BX SPX Bilateral states x3 COLONOSCOPY DIAGNOSTIC 2021 no polyps COLONOSCOPY SCREENING EGD DIAGNOSTIC 08/14/2023 EGD W/O BRSH SPEC VARICIES INJ PAST SURGICAL HISTORY OF 1965 tonsilectomy FAMILY HISTORY Problem Relation Age of Onset Uterine Cancer Mother other (bile duct cancer) Sister Colon Cancer No Family History Social History Tobacco Use Smoking status: Never Smokeless tobacco: Never Vaping Use Vaping status: Former Substance Use Topics Alcohol use: Yes Comment: a few beers per day Drug use: Not Currently MEDICATIONS: Prior to Admission Medications: ferrous sulfate (IRON) 325 mg (65 mg iron) tabletTake 30 mg by mouth once daily.Disp: Rfl: losartan (COZAAR) 100 mg tabletTake 100 mg by mouth once daily.Disp: Rfl: MULTIVITAMIN ORALTake by mouth.Disp: Rfl: Current Facility-Administered Medications Medication Dose Route Frequency NaCl 0.9% iv flush bag 20 mL INTRAVENOUS PRN pantoprazole 40 mg injection (PROTONIX) 40 mg INTRAVENOUS BID AC (0600/1600) ALLERGIES No Known Allergies GI SPECIFIC REVIEW OF SYSTEMS: Positive for blood in the vomit, rectal bleeding, nausea, vomiting, abdominal pain Negative for decreased appetite Negative for change in weight OTHER ROS: Negative for fever, night sweats, sleep problems, mood or depression. NECK: Negative for lumps, goiter, pain and significant neck swelling RESPIRATORY: Negative for cough, hemoptysis, wheezing, COPD, dyspnea or shortness of breath CARDIOVASCULAR: Negative for chest pain, leg swelling, hypertension, CHF or palpitations : No history of dysuria, frequency or incontinence MUSCULOSKELETAL: Negative for joint pain or swelling, back pain or muscle pain SKIN: Negative for lesions, rash, and itching HEMATOLOGY/LYMPHOLOGY: Negative for prolonged bleeding, bruising easily or swollen nodes ENDOCRINE: Negative for cold or heat intolerance, polyuria, polydipsia and goiter NEURO: No history of headaches, syncope, paralysis, seizures or tremors Objective PHYSICAL EXAM: BP (!) 117/47 Pulse 103 Temp 36.7 ?C (98.1 ?F) (Oral) Resp 15 Ht 176.5 cm (5' 9.5 ) Wt 77.4 kg (170 lb 10.2 oz) SpO2 98% BMI 24.84 kg/m? GENERAL: Alert, Mild Distress, Cooperative SKIN: Skin color, texture, turgor normal. No rashes or lesions. HEENT: Moist mucus membranes, no carotid bruit NECK: No jugulovenous distention, Supple BACK: Back symmetric, Normal curvature LUNGS: Clear to auscultation bilaterally CARDIAC: S1, S2 heard, no murmur appreciated ABDOMEN: Soft, non-tender without guarding or rigidity, normal bowel sounds EXTREMITIES: No pedal edema NEURO: Negative findings: speech normal, mental status intact, muscle tone normal, muscle strength normal PULSES: 2+ radial, 2+ dorsalis pedis DATA: Diagnostic Tests Reviewed for Today's Visit: Most recent labs and imaging results. 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 GI bleed Technique: Noncontrasted CT of the abdomen and pelvis was performed. Following administration of intravenous contrast, CT angiogram of the abdomen and pelvis performed with multiplanar reconstructions. CT of the abdomen and pelvis was performed in a delayed phase. Contrast: IV 120 ml of Omnipaque 350 CT Radiation dose: Integrated Dose-length product (DLP) for this visit = 2118 mGy*cm CT Dose Reduction Employed: Automated exposure control(AEC) and iterative recon COMPARISON: Abdomen and pelvic CT dated 05/13/2024, 02/18/2024, 10/01/2023, 09/02/2023 RESULT: VASCULATURE: Abdominal aorta: No aneurysm, dissection, penetrating ulceration. Patent major aortic branch vessels. There is mild vascular calcification of the abdominal aorta, without aneurysm. Stable chronic occlusion of the distal SMA and attenuated splenic vein due to peripancreatic anila mass. There is perigastric and mesenteric collateral, unchanged. ABDOMEN/PELVIS: Bowel and mesentery: Stable postsurgical change of gastrojejunostomy. There are segmental circumferential bowel thickening of the proximal jejunal loops in the left upper abdomen (10:22), left mid abdomen (10:27) and distal small bowel in the right midabdomen (7:249, 10:47, 11:50), new since 05/13/2024. There are gaseous small bowel loops with diffuse mesenteric soft tissue stranding/edema at the root of the small bowel mesentery in the midabdomen. Findings are suggestive of nonspecific enteritis; underlying small bowel neoplasm cannot be excluded. No pneumatosis. No active extravasation on arterial phases. No accumulation of contrast in the lumen of bowel on post contrasted phases. Solid abdominal organs: There is diffusely fatty liver. No mass is identified in the liver or spleen. The adrenal glands are normal. There is diffuse renal cortical scarring (left greater than right), suggestive of chronic cerebral inflammation/infection/infarct, new since 05/13/2024. No renal mass. No hydronephrosis. The gallbladder is present. No intrahepatic biliary ductal dilatation. Peritoneal cavity: No free air or free fluid. Lymph nodes: There are 2.5 x 2.5 x 3.9 cm uncinate pancreatic mass (7:243, 11:76) and multiple subcentimeter lymph nodes encasing the proximal SMA below the proximal pancreas, mildly improved since 05/13/2024. There is 2.3 x 1.7 cm hypodense pancreatic tail lesion below the splenic hilum (7:178), stable. There is 1.9 cm calcified mesenteric lymph node in the right midabdomen, unchanged. There are multiple less than 2 cm left para-aortic/retroperitoneal lymph nodes, mildly worse since 05/13/2024. There are shotty mesenteric lymph nodes, mildly improved since 05/13/2024. Findings are suggestive of mixed response of moderate metastatic peripancreatic and left retroperitoneal adenopathy since 05/13/2024. Pelvic contents: No pelvic free fluid. The urinary bladder is unremarkable. MUSCULOSKELETAL: No acute or remote osseous fractures. Degenerative changes. Lung bases: Images of the lung bases demonstrate confluent left lower lobe consolidative airspace opacities, new since 05/13/2024. IMPRESSION: CONFLUENT LEFT LOWER LOBE CONSOLIDATIVE AIRSPACE OPACITIES, QUESTION ASPIRATION PNEUMONIA, NEW SINCE 05/13/2024. SEGMENTAL CIRCUMFERENTIAL BOWEL THICKENING OF THE PROXIMAL JEJUNAL LOOPS IN THE LEFT UPPER ABDOMEN, LEFT MID ABDOMEN AND DISTAL SMALL BOWEL IN THE RIGHT MIDABDOMEN, AND GASEOUS SMALL BOWEL LOOPS WITH DIFFUSE MESENTERIC SOFT TISSUE STRANDING/EDEMA AT THE ROOT OF THE SMALL BOWEL MESENTERY IN THE MIDABDOMEN. FINDINGS ARE SUGGESTIVE OF NONSPECIFIC ENTERITIS, PROBABLY WITH MILD ILEUS; UNDERLYING SMALL BOWEL NEOPLASM CANNOT BE EXCLUDED. FINDINGS SUGGESTIVE OF MIXED RESPONSE OF MODERATE METASTATIC PERIPANCREATIC AND LEFT RETROPERITONEAL ADENOPATHY SINCE 05/13/2024. 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 COMMUNICATION: COMMUNICATED WITH PHYSICIAN: LORI STEEL ON 02/23/2025 4:53 PM VIA VERBAL COMMUNICATION. Splicer Machine Operator: PSCB Transcribe Date/Time: Feb 23 2025 4:15P Dictated by : EZEKIEL STRICKLAND MD This examination was interpreted and the report reviewed and electronically signed by: EZEKIEL STRICKLAND MD on Feb 23 2025 5:01PM EST [id number] HospitalComprehensive metabolic 2000 panel on [id number] [Mass/Vol]3.4 g/dLLow3.9-4.9[place] HospitalComment on above:Order Comment: Specimen Type: BLOOD SPECIMEN Order[facility] Facility: [facility] Address: [address] [place], [place] [address]Performed By: #### 30529-1 #### [facility] CLIA [id number] [place] [address] [place] AMERICAALP [Catalytic activity/Vol]123 U/L [id number] HospitalComment on above:Order Comment: Specimen Type: BLOOD SPECIMEN Order[facility]: [facility] Address: [address] [place], [place] [address]Performed By: #### 97099-2 #### [facility] CLIA [id number] [address] [place] [address] [place] AMERICAALT [Catalytic activity/Vol]32 U/L [id number] HospitalComment on above:Order Comment: Specimen Type: BLOOD SPECIMEN [facility]: [facility] Address: [address] [place], [place] [address]Performed By: #### 26618-0 #### [facility] CLIA [id number] [address] [place] [address] [place] AMERICAAnion gap [Moles/Vol]14 mmol/LNormal 8-15[facility] HospitalComment on above:Order Comment: Specimen Type: BLOOD SPECIMEN [facility]: [facility] Address: [address] [place], [place] [address]Performed By: #### 24757-8 #### [facility] CLIA [id number] [address] [place] [address] [place] AMERICAAST [Catalytic activity/Vol]43 U/L [id number] HospitalComment on above:Order Comment: Specimen Type: BLOOD SPECIMEN [facility] Address: [address] [place], [place] [address]Performed By: #### 04075-2 #### [facility] CLIA [id number] [address] [place] [address] [place] AMERICABilirubin [Mass/Vol]1.3 mg/dLNormal 0.2-1.3F[facility] HospitalComment on above:Order Comment: Specimen Type: BLOOD SPECIMEN [facility] Address: [address] [place], [place] [address]Performed By: #### 07901-0 #### [facility] CLIA [id number] [address] [place] [address] [place] AMERICACalcium [Mass/Vol]7.9 mg/dLLow 8.5-10.2Fmelrosewakefield hospital HospitalComment on above:Order Comment: Specimen Type: BLOOD SPECIMEN [facility] Address: [address] [place], [place] [address]Performed By: #### 34497-7 #### [facility] CLIA [id number] [address] [place] [address] [place] AMERICAChloride [Moles/Vol]120 mmol/LHigh 98-107[facility] HospitalComment on above:Order Comment: Specimen Type: BLOOD SPECIMEN [facility] Address: [address] [place], [place] [address]Performed By: #### 68541-1 #### [facility] CLIA [id number] [address] [place] [address] [place] AMERICACO2 [Moles/Vol]13 mmol/MAwq68-02 [place] HospitalComment on above:Order Comment: Specimen Type: BLOOD SPECIMEN [facility] Address: [address] [place], [place] [address]Performed By: #### 57021-3 #### [facility] CLIA [id number] [address] [place] [address] [place] AMERICACreatinine [Mass/Vol]1.65 mg/dLHigh 0.73-1.22[facility] HospitalComment on above:Order Comment: Specimen Type: BLOOD SPECIMEN [facility] Address: [address] [address] [place], [place] [address]Performed By: #### 01901-4 #### [facility] CLIA [id number] [address] [place] [address] [place] OF AMERICACreatinine and Glomerular filtration rate.predicted panel (S/P/Bld)45 mL/min/1.73m???Low>=60FaHudson HospitalComment on above:Order Comment: Specimen Type: BLOOD SPECIMEN [facility] Address: [address] [place], [place] [address]Result Comment: Estimated Glomerular Filtration Rate (eGFR) is calculated using the 2020 CKD-EPI cre atinine equation. This equation utilizes serum creatinine, sex, and age as parameters. The creatinine assay has traceable calibration to isotope dilution- mass spectrometry. Refer to KDIGO guidelines for clinical interpretation. In patients with unstable renal function, e.g. those with acute kidney injury, the eGFR may not accurately reflect actual GFR.Performed By: #### 74542-2 #### [facility] CLIA [id number] [place] [address] [place] AMERICAGlucose [Mass/Vol]107 mg/sNCnna19-81 [facility] DevensComment on above:Order Comment: Specimen Type: BLOOD SPECIMEN [facility] Address: [address] [place], [place] [address]Result Comment: The [place] Diabetes Association (ADA) provides guidance for cutoff [...] Standards of Medical Care in Diabetes 2016, [place] [employer]. Diabetes Care. 2016.39(Suppl 1).Performed By: #### 29125-1 #### [facility] CLIA [id number] [place] [address] [place] AMERICAPotassium [Moles/Vol]4.7 mmol/L Normal3.7-5.1FPratt Clinic / New England Center HospitalComment on above:Order Comment: Specimen Type: BLOOD SPECIMEN [facility] Address: [address] [place], [place] [address]Performed By: #### 71017-5 #### [facility] CLIA [id number] [address] [place] [address] [place] AMERICAProtein [Mass/Vol]5.6 g/dLLow6.3-8.0 [place] HospitalComment on above:Order Comment: Specimen Type: BLOOD SPECIMEN [facility] Address: [address] [place], [place] [address]Performed By: #### 60951-1 #### [facility] CLIA [id number] [address] [place] [address] [place] AMERICASodium [Moles/Vol]147 mmol/LHigh 136-144[facility] HospitalComment on above:Order Comment: Specimen Type: BLOOD SPECIMEN [facility] Address: [address] [place], [place] [address]Performed By: #### 01618-6 #### [facility] CLIA [id number] [address] [place] [address] [place] AMERICAUrea nitrogen [Mass/Vol]42 mg/dLHigh 9-24[place] HospitalComment on above:Order Comment: Specimen Type: BLOOD SPECIMEN [facility] Address: [address] [place], [place] [address]Performed By: #### 40036-6 #### [facility] CLIA [id number] [address] [place] [address] [place] OF AMERICAHISTORY PHYSICALon [id number] PHYSICALHNO ID: [id number] Author: PRATIK WINTERS MD Service: Gastroenterology Author Type: Physician Type: H&P Filed: 02/23/2025 14:19 Note Text: HISTORY AND PHYSICAL Aisha Julien, 69 year old male with PMH of metastatic SB NET s/p G-J bypass, CKD3, HTN who presents with hematemesis. Current history and physical on file: Yes Is a new History and Physical required for today's visit? No Indication for procedure: GI bleeding PROCEDURE(S) SCHEDULED FOR: EGD (Esophagogastroduodenoscopy) with or without biopsies, removal of polyps or lesions, dilation ( any means), treatment of bleeding ( any means), Barrx treatment of Naresh's Esophagus, image tube placement or cryo therapy treatment based on clinical findings. BASELINE BEHAVIOR: Calm BASELINE ORIENTATION: A AND O x3 All medications and allergies reviewed: Yes Skin Assessment: Warm dry mucus membranes pink Airway/Respiratory Assessment: Airway: visualization of the uvula- Yes Mouth: opening greater than 2 fingerbreadths- Yes Neck: full range of motion- Yes Breath sounds clear/equal- Yes Pulmonary Assessment: Clear to auscultation bilaterally Cardiac Assessment: Regular rate and rhythm without murmur Abdominal Assessment: Abdomen soft, non-tender, no masses or organomegaly. Sedation Plan: MAC Additional Comments: None Pratik Winters MDBrockton HospitalHISTORY PHYSICALHNO ID: [id number] Author: LORI STEEL MD Service: Critical Care Author Type: Physician Type: H&P Filed: 02/23/2025 14:33 Note Text: MICU HANDP Patient Name: Aisha Julien Service Date: February 23, 2025 HPI: Summarized through review of available medical records, and patient/family interview. 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 On sandostatin, C14 on 12/09/2024. - Hx of hemetemesis/melena. Unremarkable colonoscopy and small bowel enteroscopy from 10/2024 - CKD3a - HTN - BPH Mr. Julien presented to ED at OSH for hematemesis and hematochezia. Patient noted that on Friday morning he had abdominal pain followed by episodes of bright red stool, when he got off the toilet he also had bright red vomiting. Patient had a total of 2 episodes of bright red vomiting and 4-5 bloody bowel movements. Patient felt clammy, dizzy, very cold at home. Patient tried to rest at home however by 9 PM patient did not feel well and went to outside hospital ED. Patient noted that he was given some fluids. [address]. And a CT scan was done. Patient did report having a bloody bowel movement before coming to [place] [facility]. Patient does report drinking 8 beers on Friday. Patient does endorse heavy drinking, has drank 8-10 beers a day for the past 50 years. Patient does not smoke. Patient does not take home medications. He only takes losartan when his blood pressure is high. 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 Assessment and plan: GI #UGIB #LGIB #At risk for alc withdrawal #Alc use disorder - Patient presented with hematemesis and hematochezia - Hb at 9.9 from 10.5 13 days ago - Has had one episode of hematochezia prior to [facility] admission today - No abd pain - Doesn't not take home medications/ otc PLAN: - GI consulted - Transfusion if hb 7, actively bleeding, or symptomatic - IV PPI - 2 large bore IVs - NPO for now - CBC - CIWA protocol - Advise alc cessation Renal/ Electrolytes: #ENEDINA on CKD - Cr 1.65 likely pre-renal given hx of vomiting and frequent BMS - IVF given in OSH ED PLAN: - Trend RFTs - Assess need for further IVF DVT ppx: Contraindicated- bleeding GI ppx: IV PPI Pt seen and discussed with Dr Steel and RN Patient/family updated of plan of care? Yes Medications and Allergies Reviewed Code Status: FULL CODE REVIEW OF SYSTEMS A complete review of systems was completed and is negative except where noted in [place]. PAST MEDICAL HISTORY: PAST MEDICAL HISTORY Diagnosis Date Essential hypertension GERD (gastroesophageal reflux disease) PAST SURGICAL HISTORY: PAST SURGICAL HISTORY Procedure Laterality Date ARTHROSCOPY KNEE DIAGNOSTIC W/WO SYNOVIAL BX SPX Bilateral states x3 COLONOSCOPY DIAGNOSTIC 2021 no polyps COLONOSCOPY SCREENING EGD DIAGNOSTIC 08/14/2023 EGD W/O [facility] SPEC VARICIES INJ PAST SURGICAL HISTORY OF 1965 tonsilectomy ALLERGIES: Patient has no known allergies. MEDICATIONS: Current medications and therapies reviewed. Home Medications: No current facility-administered medications on file prior to encounter. Current Outpatient Medications on File Prior to Encounter Medication Sig ferrous sulfate (IRON) 325 mg (65 mg iron) tablet Take 30 mg by mouth once daily. losartan (COZAAR) 100 mg tablet Take 100 mg by mouth once daily. MULTIVITAMIN ORAL Take by mouth. SOCIAL HISTORY: Social History Tobacco Use Smoking status: Never Smokeless tobacco: Never Vaping Use Vaping status: Former Substance Use Topics Alcohol use: Yes Comment: a few beers per day Drug use: Not Currently FAMILY HISTORY: FAMILY HISTORY Problem Relation Age of Onset Uterine Cancer Mother other (bile duct cancer) Sister Colon Cancer No Family History OBJECTIVE: Vital signs, labs, EKG, and diagnostic studies and reports reviewed. BP 129/65 Pulse 90 Temp 36.5 ?C (97.7 ?F) (Temporal) Resp 16 Ht 176.5 cm (5' 9.5 ) Wt 77.4 kg (170 lb 10.2 oz) SpO2 98% BMI 24.84 kg/m? Labs: CBC, Coags, BMP, Mg, Phos Recent Labs 02/23/25 1241 WBC 8.42 HB 9.9* HCT 31.5* PLT 110* NA 147* K 4.7 CHLOR 120* CO2 13* BUN 42* CREAT 1.65* GLUC 107* CA 7.9* ECG: Needs a repeat one on the MICU PHYSICAL EXAM: Constitutional: Vital signs reviewed. Hemodynamically stable. Well developed, well nourished. General Appearance: Well appearing, alert, in no acute distress, well-hydrated, well nourished. Head/Neck: normal, no jugular venous distension, no thyromegaly, and no palpable masses Eyes: Anicteric sclera. Pupils are equally round and reactive to light. Extraocular movements are intact. ENT/Mouth: No oral or nasal erythema, bleeding, lesions, striae Respiratory: Clear to auscultation Not on Venti (more content not included)... NormalFaHudson HospitalPT panel Coag (PPP)on 47-63-2666TBM Coag (PPP) [Relative time]1.1 {INR}Normal0.9-1.3FairSmallpox HospitalComment on above:Order Comment: Specimen Type: BLOOD SPECIMEN [facility] Address: [address] [place], [place] [address]Q[place]cat Comment: Vitamin K Antagonist (VKA) Therapeutic Range: INR 2 to 3 (Target INR of 2.5) Note: For patients treated with VKA drugs, such as warfarin, the [place] [employer] 2012 Guideline recommends a therapeutic INR range of 2 to 3 (target INR of 2.5). This recommendation includes high-risk patients with antiphospholipid syndrome with previous arterial or venous thromboembolism, current-generation mechanical or bioprosthetic aortic heart valve replacement. Note: Patients with mechanical aortic valve replacement and additional risk factors for thromboembolic events (atrial fibrillation, previous thromboembolism, LV dysfunction, hypercoagulable conditions) or an older generation mechanical AVR (i.e., ball in-Cage) or any mechanical MVR should have a INR therapeutic range of 2.5 to 3.5 (target INR of 3). Lizy WATSON, et al. Chest 2012, 141:7S-47S Beau RED et al. [facility] 2017, 70: 252-289Performed By: #### 81639-0 #### [facility] CLIA [id number] [address] [place] [address] [place] AMERICAPT Coag (PPP) [Time]11.9 sNormal 9.7-13.0[facility] HospitalComment on above:Order Comment: Specimen Type: BLOOD SPECIMEN [facility] Address: [address] [place], [place] [address]Performed By: #### 55564-8 #### [facility] CLIA [id number] [address] [place] [address] [place] AMERICASTAPHYLOCOCCUS AUREUS AND MRSA SCREEN, PCR, NASALon 02-23-2025S. aureus and MRSA panel VERITO+probe (Nose)Not detectedNormalNot DetectedMiami HospitalComment on above:Order Comment: Specimen Type: BLOOD SPECIMEN [facility] Address: [address] [place], [place] [address]Performed By: #### 34153-4, 87741-3 #### [facility] CLIA [id number] [address] [place] [address] [place] AMERICATYPE + SCREENon [id number] [place] HospitalComment on above:Order Comment: Specimen Type: BLOOD SPECIMEN [facility] Address: [address] [place], [place] [address]Performed By: #### 95840-1, 65302-9 #### [facility] CLIA [id number] [address] [place] [address] [place] AMERICARh Nom (Bld)PositiveNormalMiami HospitalComment on above:Order Comment: Specimen Type: BLOOD SPECIMEN [facility] Address: [address] [place], [place] [address]Rvdjhdxen By: #### 85338-4, 29844-5 #### [facility] CLIA [id number] [address] [place] [id number] [facility]ITALTYPE AND SCREEN KVESAGRLZA56/05/2025 23:59NormalFederal Medical Center, DevensComment on above:Order Comment: Specimen Type: BLOOD SPECIMEN [facility] Address: [address] [id number] By: #### 93131-9, 32279-2 #### [facility] CLIA [id number] [address] [id number] [facility] HOSPITALUpper GI endoscopyon [id number] GI endoscopyFaLeonard Morse Hospital Gastrointestinal [facility]oscopy Patient Name: Aisha Julien Procedure Date: 02/23/2025 2:03 PM Date of : 1955 Admit Type: Inpatient Age: 69 Room: [place] [address] Gender: Male Note Status: Home Health Aide Caregiver Override Attending MD: Pratik Winters MD, [id number] Procedure: Upper GI endoscopy Indications: Suspected upper gastrointestinal bleeding Providers: Pratik Winters MD, Yoli Izquierdo, LUCILLE, Pratik Horn RN (Assisting Nurse) Patient Profile: This is a 69 year old male with PMH of metastatic SB NET s/p G-J bypass, CKD3, HTN who presents with hematemesis. Refer to note in patient chart for documentation of history and physical. Referring Physician: Sudha Syed (Referring MD) Medicines: Monitored Anesthesia Care Complications: [...] and oxygen saturations were monitored continuously. The Endoscope was introduced through the mouth, and advanced to the jejunum. The upper GI endoscopy was accomplished without difficulty. The patient tolerated the procedure well. Moderate Sedation: MAC anesthesia was administered by the anesthesia team. Total Procedure Duration: 0 hours 14 minutes 35 seconds Findings: The examined jejunum was normal. An acquired malignant-appearing, intrinsic severe stenosis was found in the second portion of the duodenum and was non-traversed. Evidence of a gastric bypass was found. A gastric pouch with a normal size was found. The gastrojejunal anastomosis was characterized by edema. This was traversed. Type 2 isolated gastric varices (IGV2, varices located in the body, antrum or around the pylorus) were found in the gastric body. Because there was significant edema of the gastrojejunal anastomosis, I initially thought that oozng at anastomotic site was due to anastomotic lesion. Therefore, I injected 1cc epinephrine and applied 1 clip to this lesion. I then realized that this lesion was actually more likely to be an ectopic gastric varix at the site of the anastomosis. After placement of the clip, there was persistent slow flow of blood from this region, anI believe that the most prudent course of action is referral to IR for TIPS vs. BRTO. Diffuse mild inflammation characterized by erythema was found in the gastric body. The exam of the stomach was otherwise normal. The Z-line was found 40 cm from the incisors. The examined esophagus was normal. Impression: - Normal examined jejunum. - Acquired duodenal stenosis. - Gastric bypass with a normal-sized pouch. Gastrojejunal anastomosis characterized by edema. - Gastritis, characterized by erythema. - Normal esophagus. - No specimens collected. - Type 2 isolated gastric varices (IGV2, varices located in the body, antrum or around the pylorus). Because there was significant edema of the gastrojejunal anastomosis, I initially thought that oozng at anastomotic site was due to anastomotic lesion. Therefore, I injected 1cc epinephrine and applied 1 clip to this lesion. I then realized that this lesion was actually more likely to be an ectopic gastric varix at the site of the anastomosis. After placement of the clip, there was persistent slow flow of blood from this region, and I believe that the most prudent course of action is referral to IR for TIPS vs. BRTO. Hemostatic spray was applied and the patient was intubated for airway protection. Recommendation: - Return patient to ICU for ongoing care. - NPO. - Continue present medications. - The patient is not currently taking anticoagulant or antiplatelet agents. - Initiate octreotide gtt - Proceed immediately to IR for stat CTA and referral to IR for TIPS vs. BRTO. Procedure Code(s): --- Professional --- 37491, Esophagogastroduodenoscopy, flexible, transoral; diagnostic, including collection of specimen(s) by brushing or washing, when performed (separate procedure) Diagnosis Code(s): --- Professional --- K31.5, Obstruction of duodenum Z98.84, Bariatric surgery status I86.4, Gastric varices K29.70, Gastritis, unspecified, (more content not included)...[facility] W Auto Differential panel (Bld)on 08-09-4131Yfhvbdcbh (Bld) [#/Vol] 0.04 10*3/uLNormal<0.11CMary [facility] on above:Order Comment: Specimen Type: BLOOD SPECIMENOrdering Facility: [facility] Address:[address] [place], [place] [address]Performed By: #### 20382-8 ####[facility] LABCLIA [id number] [place], [place] [address]Nagmumefn/100 WBC (Bld)1.1 %NormalProMedica Memorial Hospital on above:Order Comment: Specimen Type: BLOOD SPECIMENOrdering Facility: [facility] Address:[address] [place], [place] [address]Performed By: #### 52773-9 ####[facility] LABCLIA [id number] [place], [place] [address]Ahkkouumkxgq cell count method Nom (Bld)AutoNormalCMary Rutan Hospital on above:Order Comment: Specimen Type: BLOOD SPECIMENOrdering Facility: [facility] Address:[address] [place], [place] [address]Performed By: #### 75898-3 ####[facility] LABCLIA [id number] [place], [place] [address]Tkdkmhxnwsm (Bld) [#/Vol]0.22 10*3/uLNormal<0.46[facility] on above:Order Comment: Specimen Type: BLOOD SPECIMENOrdering Facility: [facility] Address:[address] [place], [place] [address]Performed By: #### 62660-6 ####[facility] LABCLIA [id number] [place], [place] [address]Ozeprykkdfi/100 WBC (Bld)6.1 %NormalUniversity Hospitals Samaritan Medical CenterComment on above:Order Comment: Specimen Type: BLOOD SPECIMENOrdering Facility: [facility] Address:[address] [place], [place] [address]Performed By: #### 92285-8 ####[facility] LABIA [id number] [place], [place] [address]Osyimumshtv distribution width (RBC) [Ratio]15.9 %High 11.5-15.0[facility] on above:Order Comment: Specimen Type: BLOOD SPECIMENOrdering Facility: [facility] Address:[address] [place], [place] [address]Performed By: #### 97013-2 ####[facility] LABIA [id number] [place] [address] Hematocrit (Bld) [Volume fraction]33.6 %Low39.0-51.0[facility] Comment on above:Order Comment: Specimen Type: BLOOD SPECIMENOrdering Facility: [facility] Address:[address] [place] [address] Performed By: #### 10875-3 ####[facility] LABIA [id number] [place], [place] [address]Xiqtrqarqp (Bld) [Mass/Vol]10.5 g/dLLow13.0-17.0[facility] on above:Order Comment: Specimen Type: BLOOD SPECIMENOrdering Facility: [facility] Address:[address] [place], [place] [address]Performed By: #### 09952-6 ####[facility] LABCLIA [id number] [place], [place] [address]Fhucsdnp granulocytes (Bld) [#/Vol]10*3/uLNormal<0.10 [facility] on above:Order Comment: Specimen Type: BLOOD SPECIMENOrdering Facility: [facility] Address:[address] [place], [place] [address]Performed By: #### 01000-6 ####[facility] LABCLIA [id number] [place], [place] [address]Rdabmwgq granulocytes/100 WBC (Bld)0.6 %[facility] on above: Order Comment: Specimen Type: BLOOD SPECIMENOrdering Facility: [facility] Address:[address] [place], [place] [address]Performed By: #### 05050- 8 ####[facility] LABCLIA [id number] [place], [place] [address]Fydeeavobxb (Bld) [#/Vol]0.49 10*3/uLLow1.00-4.00 [facility] on above:Order Comment: Specimen Type: BLOOD SPECIMENOrdering Facility: [facility] Address:[address] [place], [place] [address]Performed By: #### 79677-9 ####[facility] LABCLIA [id number] [place], [place] [address]Qazwgvhwrfr/100 WBC (Bld)13.6 %[facility] on above:Order Comment: Specimen Type: BLOOD SPECIMENOrdering Facility: [facility] Address:[address] [place], [place] [address]Performed By: #### 12863-3 ####[facility] LABCLIA [id number] [place], [place] [address]CTD (RBC) [Entitic mass]28.5 bmRiecnu40.0-34.0[facility] on above:Order Comment: Specimen Type: BLOOD SPECIMENOrdering Facility: [facility] Address:[address] [place], [place] [address]Performed By: #### 99385-4 ####[facility] LABCLIA [id number] [place], [place] [address]ZDOG (RBC) [Mass/Vol]31.3 g/dGDcervm81.5-36.0[facility] on above: Order Comment: Specimen Type: BLOOD SPECIMENOrdering Facility: [facility] Address:[address] [place], [place] [address]Performed By: #### 89733- 8 ####[facility] LABCLIA [id number] [place], [place] [address]HPF (RBC) [Entitic vol]91.1 vKWakqky31.0-100.0[facility] on above:Order Comment: Specimen Type: BLOOD SPECIMENOrdering Facility: [facility] Address:[address] [place], [place] [address]Performed By: #### 51027-2 ####[facility] LABCLIA [id number] [place], [place] [address]Dfiwpyfdv (Bld) [#/Vol]0.78 10*3/uLNormal<0.87[facility] on above:Order Comment: Specimen Type: BLOOD SPECIMENOrdering Facility: [facility] Address:[address] [place], [place] [address]Performed By: #### 03550- 8 ####[facility] LABCLIA [id number] [place], [place] [address]Iptjfznsd/100 WBC (Bld)21.7 %NormalProMedica Memorial Hospital on above:Order Comment: Specimen Type: BLOOD SPECIMENOrdering Facility: [facility] Address:[address] [place], [place] [address]Performed By: #### 47496-1 ####[facility] LABCLIA [id number] [place], [place] [address]Leasxgubcpa (Bld) [#/Vol]2.05 10*3/uLNormal1.45-7.50[facility] on above:Order Comment: Specimen Type: BLOOD SPECIMENOrdering Facility: [facility] Address:[address] [place], [place] [address]Performed By: #### 76272-0 ####[facility] LABCLIA [id number] [place], [place] [address]Sadnjqdnwyk/100 WBC (Bld)56.9 %NormalProMedica Memorial Hospital on above:Order Comment: Specimen Type: BLOOD SPECIMENOrdering Facility: [facility] Address:[address] [place], [place] [address]Performed By: #### 72872-4 ####[facility] LABCLIA [id number] [place], [place] [address]Rpkilmgqr RBC (Bld) [#/Vol] 10*3/uLNormal<0.01[facility] on above:Order Comment: Specimen Type: BLOOD SPECIMENOrdering Facility: [facility] Address:[address] [place], [place] [address]Performed By: #### 79260-5 ####[facility] LABCLIA [id number] [place], [place] [address]Qcjdtmwxt RBC/100 WBC (Bld) [Ratio]0.0 /100 WBCNormal [facility] on above:Order Comment: Specimen Type: BLOOD SPECIMENOrdering Facility: [facility] Address:[address] [place], [place] [address]Performed By: #### 97975-9 ####[facility] LABCLIA [id number] [place], [place] [address]Geumftux mean volume (Bld) [Entitic vol]10.1 fLNormal9.0-12.7CM[facility] on above:Order Comment: Specimen Type: BLOOD SPECIMENOrdering Facility: [facility] Address:[address] [place] [address] Performed By: #### 55653-6 ####[facility] LABCLIA [id number] [place], [place] [address]Guywzqdqm (Bld) [#/Vol]213 10*3/bTSjbmfr617-370JhkpdkzstProMedica Memorial Hospital on above:Order Comment: Specimen Type: BLOOD SPECIMENOrdering Facility: [facility] Address:[address] [place], [place] [address]Performed By: #### 44180-2 ####[facility] LABCLIA [id number] [place], [place] [address]KWA (Bld) [#/Vol]3.69 10*6/uLLow4.20-6.00[facility] on above:Order Comment: Specimen Type: BLOOD SPECIMENOrdering Facility: [facility] Address:[address] [place], [place] [address]Performed By: #### 62317-2 ####[facility] LABCLIA [id number] [place], [place] [address]WEJ (Bld) [#/Vol]3.60 10*3/uL Low3.70-11.00[facility] on above:Order Comment: Specimen Type: BLOOD SPECIMENOrdering Facility: [facility] Address:[address] [place], [place] [address]Performed By: #### 61916-9 ####[facility] LABCLIA [id number] [place] [address] [facility] CBC W AUTO DIFF BLDon 37-97-7682Ecimwrngv/100 WBC (Bld)1.1 %[facility] BASOPHILS # BLD AUTO0.04NILiving[facility] DIFFERENTIAL METHOD BLDAuto [facility] EOSINOPHIL # BLD AUTO0.22NILivingston Regional Hospital LYMPHOCYTES # BLD AUTO0.49LowSaint Luke's Health System MONOCYTES # BLD AUTO0.78NIHancock County HospitalF NEUTROPHILS # BLD AUTO2.05[facility] NRBC # BLD AUTO<0.01NISaint Thomas Hickman HospitalF NRBC/100 WBC BLD-RTO0/100 WBCSaint Luke's Health System PLATELET # BLD [id number] Luke's Health System PMV BLD AUTO10.1 fL9.0 - 12.7 fLSaint Luke's Health System WBC # BLD AUTO3.6LowNorthwest Medical CenterEosinophils/100 WBC (Bld)6.1 %[facility] Erythrocyte distribution width (RBC) [Ratio]15.9 %High11.5 - 15.0 %[facility] Medical CenterHematocrit (Bld) [Volume fraction]33.6 %Low39.0 - 51.0 %[facility] Medical CenterHemoglobin (Bld) [Mass/Vol]10.5 g/dLLow13.0 - 17.0 g/dLNorthwest Medical Center IMM GRANULOCYTES # BLD AUTO<0.03[facility] GRANULOCYTES/LEUK NFR BLD AUTO0.6 %[facility] Medical CenterInterpretation and review of laboratory resultsAbnormal Northwest Medical CenterLymphocytes/100 WBC (Bld)13.6 %[facility] HealthcareH (RBC) [Entitic mass]28.5 pg26.0 - 34.0 pgCitizens Memorial HealthcareHC (RBC) [Mass/Vol]31.3 g/dL30.5 - 36.0 g/dLCitizens Memorial HealthcareV (RBC) [Entitic vol]91.1 fL80.0 - 100.0 fLNorthwest Medical CenterMonocytes/100 WBC (Bld)21.7 %[facility] Medical CenterNeutrophils/100 WBC (Bld) 56.9 %[facility] Medical CenterRBC (Bld) [#/Vol]3.69 10*6/uLLow4.20 - 6.00 m/uLNorthwest Medical CenterSpecimen Type: BLOOD SPECIMEN [facility] Address: [address] [place] [address] Original Ordering Provider: ROSELYN ELISELiberty Hospitalprehensive metabolic 2000 panelon 09-10-2434Poabwfc [Mass/Vol]4.1 g/dLNormal3.9-4.9 [facility] on above:Order Comment: Specimen Type: BLOOD SPECIMENOrdering Facility: [facility] Address:[address] [place], [place] [address]Performed By: #### 77655-1 ####[facility] LABCLIA [id number] [place], [place] [address]HVW [Catalytic activity/Vol]175 U/HDyxm15-275RaoupuhbiProMedica Memorial Hospital on above:Order Comment: Specimen Type: BLOOD SPECIMENOrdering Facility: [facility] Address:[address] [place], [place] [address]Performed By: #### 87559- 8 ####[facility] LABCLIA [id number] [facility] [place], [place] [address]DAL [Catalytic activity/Vol]20 U/LCjlgph55-61GrcpsbiamProMedica Memorial Hospital on above:Order Comment: Specimen Type: BLOOD SPECIMENOrdering Facility: [facility] Address:[address] [place], [place] [address]Performed By: #### 68436-1 ####[facility] LABCLIA [id number] [place], [place] [address]Enssu gap [Moles/Vol]9 mmol/LNormal8-15[facility] on above:Order Comment: Specimen Type: BLOOD SPECIMENOrdering Facility: [facility] Address:[address] [place], [place] [address]Performed By: #### 50768- 8 ####[facility] LABCLIA [id number] [facility], [place] [address]RHO [Catalytic activity/Vol]39 U/TUvchbg04-16IvioqjbohProMedica Memorial Hospital on above:Order Comment: Specimen Type: BLOOD SPECIMENOrdering Facility: [facility] Address:[address] [place], [place] [address]Performed By: #### 29275-6 ####[facility] LABCLIA [id number] [place], [place] [address]Xglikslbw [Mass/Vol]0.4 mg/dLNormal0.2-1.3CMary [facility] Hospital on above:Order Comment: Specimen Type: BLOOD SPECIMENOrdering Facility: [facility] Address:[address] [place], [place] [address]Performed By: #### 55727- 8 ####[facility] LABCLIA [id number] [place], [place] [address]Iirooyq [Mass/Vol]9.0 mg/dLNormal8.5-10.2CMary Rutan Hospital on above:Order Comment: Specimen Type: BLOOD SPECIMENOrdering Facility: [facility] Address:[address] [place], [place] [address]Performed By: #### 92124-4 ####[facility] LABCLIA [id number] [place], [place] [address]Iwwvrejz [Moles/Vol]110 mmol/L Wbzr45-534NjwahttjhProMedica Memorial Hospital on above:Order Comment: Specimen Type: BLOOD SPECIMENOrdering Facility: [facility] Address:[address] [place], [place] [address]Performed By: #### 77825-6 ####[facility] LABCLIA [id number] [place] [address] CO2 [Moles/Vol]21 mmol/RVvg47-85NbsfenkqcProMedica Memorial Hospital on above:Order Comment: Specimen Type: BLOOD SPECIMENOrdering Facility: [facility] Address:[address] [place], [place] [address]Performed By: #### 77268- 8 ####[facility] LABCLIA [id number] [place], [place] [address]Xjnvmaquqc [Mass/Vol]1.02 mg/dLNormal0.73-1.22[facility] on above:Order Comment: Specimen Type: BLOOD SPECIMENOrdering Facility: [facility] Address:[address] [place] [address]Klwyvkpmk By: #### 47473-5 ####[facility] LABCLIA [id number] [place], [place] [address]Ehjmljxbcy and Glomerular filtration rate.predicted panel (S/P/Bld)80 mL/min/1.73m???Normal>=60 [facility] on above:Order Comment: Specimen Type: BLOOD SPECIMENOrdering Facility: [facility] Address:[address] [place] [address]Xexxlv Comment: Estimated Glomerular Filtration Rate (eGFR) is calculated using the 2020 CKD-EPI creatinine equation. This equation utilizes serum creatinine, sex, and age as parameters. The creatinine assay has traceable calibration to isotope dilution-mass spectrometry. Refer to KDIGO guidelines for clinical interpretation. In patients with unstable renal function, e.g. those with acute kidney injury, the eGFR may not accurately reflect actual GFR.Performed By: #### 54677-6 ####[facility] LABCLIA [id number] [place], [place] [address]Vhklvpx [Mass/Vol]107 mg/zFYyvb99-81CfnxavywbProMedica Memorial Hospital on above:Order Comment: Specimen Type: BLOOD SPECIMENOrdering Facility: [facility] Address:[address] [place] [address]Ogfkiu Comment: The [place] Diabetes Association (ADA) provides guidance for cutoff values for fast ing glucose and random glucose. The ADA defines fasting as no caloric intake for at least 8 hours. Fasting plasma glucose results between 100 to 125 mg/dL indicate increased risk for diabetes (prediabetes).Fasting plasma glucose results greater than or equal to 126 mg/dL meet the criteria for diagnosis of diabetes. In the absence of unequivocal hyperglycemia, results should be confirmed by repeattesting. In a patient with classic symptoms of hyperglycemia or hyperglycemic crisis, random plasmaglucose results greater than or equal to 200 mg/dL meet the criteria for diagnosis of diabetes.Reference: Standards of Medical Care in Diabetes 2016, [place] [employer]. Diabetes Care. 2016.39(Suppl 1).Performed By: #### 61294-3 ####[facility] LABCLIA [id number] [place], [place] [address]Esfvyoyic [Moles/Vol]4.8 mmol/LNormal3.7-5.1CMary [facility]an Hospital on above: Order Comment: Specimen Type: BLOOD SPECIMENOrdering Facility: [facility] Address:[address] [place], [place] [address]Performed By: #### 88862- 8 ####[facility] LABCLIA [id number] [place], [place] [address]Leqsqox [Mass/Vol]6.5 g/dLNormal6.3-8.0[facility] on above:Order Comment: Specimen Type: BLOOD SPECIMENOrdering Facility: [facility] Address:[address] [place], [place] [address]Performed By: #### 86321-4 ####[facility] LABCLIA [id number] [place], [place] [address]Gxcqmk [Moles/Vol]140 mmol/L Xeondw316-455McxzyrtdkProMedica Memorial Hospital on above:Order Comment: Specimen Type: BLOOD SPECIMENOrdering Facility: [facility] Address:[address] [place], [place] [address]Performed By: #### 34389-2 ####[facility] LABCLIA [id number] [place] [address] Urea nitrogen [Mass/Vol]14 mg/dLNormal9-24[facility] on above:Order Comment: Specimen Type: BLOOD SPECIMENOrdering Facility: [facility] Address:[address] [place], [place] [address]Performed By: #### 88796-3 ####[facility] LABCLIA [id number] [place], [place] [address]Fzzaxhki SerPl-nc 07-77-0444Zdokpxtw [Mass/Vol] 40.3 ng/aMRntyei15.3-565.7CMary [facility]an Hospital on above:Order Comment: Specimen Type: BLOOD SPECIMENOrdering Facility: [facility] Address:[address] [place], [place] [address]Performed By: #### 64703- 8, 2275- ####[facility] LABCLIA [id number] [place] [address] [place] OF AMERICAIron and Iron binding capacity panelon 62-71-8785Cgdh [Mass/Vol]250 ug/zCNuqk88-410XgigzvvbuProMedica Memorial Hospital on above:Order Comment: Specimen Type: BLOOD SPECIMENOrdering Facility: [facility] Address:[address] [place], [place] [address]Performed By: #### 47833-5, 2275-11 ####[facility] LABIA [id number] [place] [address] [place] AMERICAIron binding capacity [Mass/Vol]401 ug/tILioq332-455EykeobnbzProMedica Memorial Hospital on above:Order Comment: Specimen Type: BLOOD SPECIMENOrdering Facility: [facility] Address:[address] [place], [place] [address]Performed By: #### 23699-9, 2275-11 ####[facility] LABIA [id number] [address] STATES OF AMERICAIron/TIBC [Molar ratio]62.3 %High15.0-57.0[facility] Comment on above:Order Comment: Specimen Type: BLOOD SPECIMENOrdering Facility: [facility] Address:[address] [place] [address] Performed By: #### 54854-4, 2275-11 ####[facility] LABIA [id number] [place] [id number] [place] DMOINIQUE CNPNon 80-25-0231IXMGWbfprrGlzjgnjyl Clinic ClevelandCBC W Auto Differential panel (Bld)on 29-39-5193Ozsvatops (Bld) [#/Vol]0.03 10*3/uLNormal<0.11CM[facility] on above:Order Comment: Specimen Type: BLOOD SPECIMENOrdering Facility: [facility] Address:[address] [place], [place] [address]Performed By: #### 69194-5 ####[facility] LABCLIA [id number] [place], [place] [address]Ifrsnvxea/100 WBC (Bld)0.8 %[facility] on above:Order Comment: Specimen Type: BLOOD SPECIMENOrdering Facility: [facility] Address:[address] [place], [place] [address]Performed By: #### 54514-7 ####[facility] LABCLIA [id number] [place], [place] [address]Dgzipbaocwyh cell count method Nom (Bld)AutoNormal [facility] on above:Order Comment: Specimen Type: BLOOD SPECIMENOrdering Facility: [facility] Address:[address] [place], [place] [address]Performed By: #### 89762-4 ####[facility] LABCLIA [id number] [place], [place] [address]Gjuqvdnleba (Bld) [#/Vol]0.18 10*3/uLNormal<0.46[facility] on above: Order Comment: Specimen Type: BLOOD SPECIMENOrdering Facility: [facility] Address:[address] [place], [place] [address]Performed By: #### 06432- 8 ####[facility] LABCLIA [id number] [place], [place] [address]Tehylgwerol/100 WBC (Bld)5.1 %NormalProMedica Memorial Hospital on above:Order Comment: Specimen Type: BLOOD SPECIMENOrdering Facility: [facility] Address:[address] [place], [place] [address]Performed By: #### 59909-2 ####[facility] LABIA [id number] [place], [place] [address]Jlhlxtdxkca distribution width (RBC) [Ratio]16.8 %High11.5-15.0[facility] on above:Order Comment: Specimen Type: BLOOD SPECIMENOrdering Facility: [facility] Address:[address] [place], [place] [address]Performed By: #### 50340- 8 ####[facility] LABIA [id number] [place], [place] [address]Xqioihhmse (Bld) [Volume fraction]33.8 %Low39.0-51.0 [facility] on above:Order Comment: Specimen Type: BLOOD SPECIMENOrdering Facility: [facility] Address:[address] [place], [place] [address]Performed By: #### 68871-3 ####[facility] LABIA [id number] [place], [place] [address]Uhykluosba (Bld) [Mass/Vol]10.7 g/dLLow13.0-17.0[facility] on above:Order Comment: Specimen Type: BLOOD SPECIMENOrdering Facility: [facility] Address:[address] [place], [place] [address]Performed By: #### 85899- 8 ####[facility] LABIA [id number] [place], [place] [address]Ritfcsfn granulocytes (Bld) [#/Vol]10*3/uLNormal<0.10 [facility] on above:Order Comment: Specimen Type: BLOOD SPECIMENOrdering Facility: [facility] Address:[address] [place], [place] [address]Performed By: #### 01763-3 ####[facility] LABIA [id number] [place], [place] [address]Xjvflirm granulocytes/100 WBC (Bld)0.3 %NormalProMedica Memorial Hospital on above: Order Comment: Specimen Type: BLOOD SPECIMENOrdering Facility: [facility] Address:[address] [place], [place] [address]Performed By: #### 00038- 8 ####[facility] LABCLIA [id number] [place], [place] [address]Jidjgebjrnh (Bld) [#/Vol]0.47 10*3/uLLow1.00-4.00 [facility] on above:Order Comment: Specimen Type: BLOOD SPECIMENOrdering Facility: [facility] Address:[address] [place], [place] [address]Performed By: #### 99809-7 ####[facility] LABCLIA [id number] [place], [place] [address]Dglwjnvbbao/100 WBC (Bld)13.2 %NormalProMedica Memorial Hospital on above:Order Comment: Specimen Type: BLOOD SPECIMENOrdering Facility: [facility] Address:[address] [place], [place] [address]Performed By: #### 15323-4 ####[facility] LABCLIA [id number] [place], [place] [address]POR (RBC) [Entitic mass]29.4 npHloqzs82.0-34.0[facility] on above:Order Comment: Specimen Type: BLOOD SPECIMENOrdering Facility: [facility] Address:[address] [place], [place] [address]Performed By: #### 36716-4 ####[facility] LABCLIA [id number] [place], [place] [address]WMTP (RBC) [Mass/Vol]31.7 g/hOJtzsil37.5-36.0[facility] on above: Order Comment: Specimen Type: BLOOD SPECIMENOrdering Facility: [facility] Address:[address] [place], [place] [address]Performed By: #### 62497- 8 ####[facility] LABCLIA [id number] [place], [place] [address]JUL (RBC) [Entitic vol]92.9 oQCbjspu68.0-100.0[facility] on above:Order Comment: Specimen Type: BLOOD SPECIMENOrdering Facility: [facility] Address:[address] [place], [place] [address]Performed By: #### 11822-8 ####[facility] LABIA [id number] [place], [place] [address]Fhtvxwrsa (Bld) [#/Vol]0.74 10*3/uLNormal<0.87[facility] on above:Order Comment: Specimen Type: BLOOD SPECIMENOrdering Facility: [facility] Address:[address] [place], [place] [address]Performed By: #### 66425- 8 ####[facility] LABIA [id number] [place], [place] [address]Btfmspheg/100 WBC (Bld)20.8 %NormalProMedica Memorial Hospital on above:Order Comment: Specimen Type: BLOOD SPECIMENOrdering Facility: [facility] Address:[address] [place], [place] [address]Performed By: #### 92843-4 ####[facility] LABIA [id number] [place], [place] [address]Tlxkgyclmlw (Bld) [#/Vol]2.12 10*3/uLNormal1.45-7.50[facility] on above:Order Comment: Specimen Type: BLOOD SPECIMENOrdering Facility: [facility] Address:[address] [place], [place] [address]Performed By: #### 99277-1 ####[facility] LABCLIA [id number] [place], [place] [address]Gqmbagxlqoh/100 WBC (Bld)59.8 %NormalProMedica Memorial Hospital on above:Order Comment: Specimen Type: BLOOD SPECIMENOrdering Facility: [facility] Address:[address] [place], [place] [address]Performed By: #### 27719-1 ####[facility] LABCLIA [id number] [place], [place] [address]Tijavqmzr RBC (Bld) [#/Vol] 10*3/uLNormal<0.01[facility] on above:Order Comment: Specimen Type: BLOOD SPECIMENOrdering Facility: [facility] Address:[address] [place], [place] [address]Performed By: #### 68365-3 ####[facility] LABCLIA [id number] [place], [place] [address]Lcdrovewk RBC/100 WBC (Bld) [Ratio]0.0 /100 WBCNormal [facility] on above:Order Comment: Specimen Type: BLOOD SPECIMENOrdering Facility: [facility] Address:[address] [place], [place] [address]Performed By: #### 54176-0 ####[facility] LABCLIA [id number] [place], [place] [address]Bjwnxvcg mean volume (Bld) [Entitic vol]9.8 fLNormal9.0-12.7CM[facility] on above:Order Comment: Specimen Type: BLOOD SPECIMENOrdering Facility: [facility] Address:[address] [place] [address] Performed By: #### 28704-4 ####[facility] LABCLIA [id number] [place], [place] [address]Agjbksnos (Bld) [#/Vol]250 10*3/kTKhbvjj870-737HgpdakadtProMedica Memorial Hospital on above:Order Comment: Specimen Type: BLOOD SPECIMENOrdering Facility: [facility] Address:[address] [place] [address]Ydatawbet By: #### 93281-1 ####[facility] LABCLIA [id number] [place], [place] [address]FYF (Bld) [#/Vol]3.64 10*6/uLLow4.20-6.00[facility] on above:Order Comment: Specimen Type: BLOOD SPECIMENOrdering Facility: [facility] Address:[address] [place], [place] [address]Performed By: #### 52050-8 ####[facility] LABCLIA [id number] [place], [place] [address]UTH (Bld) [#/Vol]3.55 10*3/uL Low3.70-11.00[facility] on above:Order Comment: Specimen Type: BLOOD SPECIMENOrdering Facility: [facility] Address:[address] [place], [place] [address]Performed By: #### 17976-3 ####[facility] LABIA [id number] [place] [address] [facility] CBC W AUTO DIFF BLDon 41-02-4720Ioxuieono/100 WBC (Bld)0.8 %[facility] BASOPHILS # BLD AUTO0.03[facility]ILiving[facility] DIFFERENTIAL METHOD BLDAuto Northwest Medical CenterCCF EOSINOPHIL # BLD AUTO0.18NILivingston Regional Hospital LYMPHOCYTES # BLD AUTO0.47[facility] WestF MONOCYTES # BLD AUTO0.74NIDecatur County General Hospital [facility] NEUTROPHILS # BLD AUTO2.12[facility] NRBC # BLD AUTO<0.01NISaint Thomas Hickman HospitalF NRBC/100 WBC BLD-RTO0/100 WBCSaint Luke's Health System PLATELET # BLD [id number] [facility] PMV BLD AUTO9.8 fL9.0 - 12.7 fLMadison Medical CenterF WBC # BLD AUTO3.55LowNorthwest Medical CenterEosinophils/100 WBC (Bld)5.1 %[facility] Erythrocyte distribution width (RBC) [Ratio]16.8 %High11.5 - 15.0 %[facility] Medical CenterHematocrit (Bld) [Volume fraction]33.8 %Low39.0 - 51.0 %[facility] CenterHemoglobin (Bld) [Mass/Vol]10.7 g/dLLow13.0 - 17.0 g/dLNorthwest Medical Center IMM GRANULOCYTES # BLD AUTO<0.03NINFCameron Regional Medical Center GRANULOCYTES/LEUK NFR BLD AUTO0.3 %[facility] CenterInterpretation and review of laboratory resultsAbnormal [facility] Medical CenterLymphocytes/100 WBC (Bld)13.2 %[facility] HealthcareH (RBC) [Entitic mass]29.4 pg26.0 - 34.0 pgCitizens Memorial HealthcareHC (RBC) [Mass/Vol]31.7 g/dL30.5 - 36.0 g/dLCitizens Memorial HealthcareV (RBC) [Entitic vol]92.9 fL80.0 - 100.0 fLNorthwest Medical CenterMonocytes/100 WBC (Bld)20.8 %[facility] CenterNeutrophils/100 WBC (Bld) 59.8 %[facility] Medical CenterRBC (Bld) [#/Vol]3.64 10*6/uLLow4.20 - 6.00 m/uLNorthwest Medical CenterSpecimen Type: BLOOD SPECIMEN [facility] Address: [address] [place] [address] Original Ordering Provider: ROSELYN GOSIALafayette Regional Health CenterOVSPon 89-16-9050SYHDNRGhcoafZdwqufjxjSelect [facility] 01-20-2025 Chromogranin A [Mass/Vol]240.1 ng/mLHigh<187.0[facility] on above:Order Comment: Specimen Type: BLOOD SPECIMENOrdering Facility: [facility] Address:[address] [place], [place] [address]Result Comment: The Chromogranin A test was performed using the Savorfull CgA II KRYPTOR method. Results obtained with different assay methods or kits cannot be used interchangeably.Performed By: #### 9811-1 ####[facility] LABCLIA [id number] [facility] HOSPITALWCBLHWHDXSO54MBQMVFMBS, [place] [address] [place] OF AMERICAComprehensive metabolic 2000 panelon 51-74-7584Cgzdcyw [Mass/Vol]4.0 g/dL Normal3.9-4.9CM[facility] on above:Order Comment: Specimen Type: BLOOD SPECIMENOrdering Facility: [facility] Address:[address] [place], [place] [address]Performed By: #### 68516-8 ####[facility] LABIA [id number] [place] [address] ALP [Catalytic activity/Vol]173 U/WFexg75-664KjjhluwacProMedica Memorial Hospital on above:Order Comment: Specimen Type: BLOOD SPECIMENOrdering Facility: [facility] Address:[address] [place] [address] Performed By: #### 40641-6 ####[facility] LABIA [id number] [place], [place] [address]MJP [Catalytic activity/Vol]15 U/NPubfvc80-91PrhhpfzygProMedica Memorial Hospital on above:Order Comment: Specimen Type: BLOOD SPECIMENOrdering Facility: [facility] Address:[address] [place], [place] [address]Performed By: #### 98811-4 ####[facility] LABIA [id number] [place] [address] Anion gap [Moles/Vol]11 mmol/LNormal8-15[facility] on above:Order Comment: Specimen Type: BLOOD SPECIMENOrdering Facility: [facility] Address:[address] [place], [place] [address]Performed By: #### 17588-4 ####[facility] LABIA [id number] [place], [place] [address]LWD [Catalytic activity/Vol]28 U/YGzcejb43-01 [facility] on above:Order Comment: Specimen Type: BLOOD SPECIMENOrdering Facility: [facility] Address:[address] [place], [place] [address]Performed By: #### 16321-3 ####[facility] LABCLIA [id number] [place], [place] [address]Yvxybtrku [Mass/Vol]0.3 mg/dLNormal0.2-1.3CM[facility] on above:Order Comment: Specimen Type: BLOOD SPECIMENOrdering Facility: [facility] Address:[address] [place], [place] [address]Performed By: #### 05422- 8 ####[facility] LABCLIA [id number] [place], [place] [address]Itgkbqs [Mass/Vol]9.0 mg/dLNormal8.5-10.2CM[facility] on above:Order Comment: Specimen Type: BLOOD SPECIMENOrdering Facility: [facility] Address:[address] [place], [place] [address]Performed By: #### 85621-8 ####[facility] LABCLIA [id number] [place], [place] [address]Kzzihvof [Moles/Vol]112 mmol/L Nkoy79-234UxxpqrewdProMedica Memorial Hospital on above:Order Comment: Specimen Type: BLOOD SPECIMENOrdering Facility: [facility] Address:[address] [place], [place] [address]Performed By: #### 77016-1 ####[facility] LABCLIA [id number] [place] [address] CO2 [Moles/Vol]20 mmol/GTfo18-32NmxfkdmvrProMedica Memorial Hospital on above:Order Comment: Specimen Type: BLOOD SPECIMENOrdering Facility: [facility] Address:[address] [place], [place] [address]Performed By: #### 78466- 8 ####[facility] LABCLIA [id number] [facility] [place], [place] [address]Cpahnwgiiz [Mass/Vol]0.91 mg/dLNormal0.73-1.22[facility] on above:Order Comment: Specimen Type: BLOOD SPECIMENOrdering Facility: [facility] Address:[address] [place] [address]Reemdsbwo By: #### 53835-0 ####[facility] LABCLIA [id number] [place], [place] [address]Njkubvmthm and Glomerular filtration rate.predicted panel (S/P/Bld)91 mL/min/1.73m???Normal>=60 [facility] on above:Order Comment: Specimen Type: BLOOD SPECIMENOrdering Facility: [facility] Address:[address] [place], [place] [address]Result Comment: Estimated Glomerular Filtration Rate (eGFR) is calculated using the 2020 CKD-EPI creatinine equation. This equation utilizes serum creatinine, sex, and age as parameters. The creatinine assay has traceable calibration to isotope dilution-mass spectrometry. Refer to KDIGO guidelines for clinical interpretation. In patients with unstable renal function, e.g. those with acute kidney injury, the eGFR may not accurately reflect actual GFR.Performed By: #### 81959-9 ####[facility] LABCLIA [id number] [place], [place] [address]Yjodwaj [Mass/Vol]110 mg/iHPacy40-06QhigbgypgProMedica Memorial Hospital on above:Order Comment: Specimen Type: BLOOD SPECIMENOrdering Facility: [facility] Address:[address] [place] [address]Oncsfc Comment: The [place] Diabetes [employer] (ADA) provides guidance for cutoff values for fast ing glucose and random glucose. The ADA defines fasting as no caloric intake for at least 8 hours. Fasting plasma glucose results between 100 to 125 mg/dL indicate increased risk for diabetes (prediabetes).Fasting plasma glucose results greater than or equal to 126 mg/dL meet the criteria for diagnosis of diabetes. In the absence of unequivocal hyperglycemia, results should be confirmed by repeattesting. In a patient with classic symptoms of hyperglycemia or hyperglycemic crisis, random plasmaglucose results greater than or equal to 200 mg/dL meet the criteria for diagnosis of diabetes.Reference: Standards of Medical Care in Diabetes 2016, [place] [employer]. Diabetes Care. 2016.39(Suppl 1).Performed By: #### 53908-5 ####[facility] LABCLIA [id number] [place], [place] [address]Iaknyzbym [Moles/Vol]4.6 mmol/LNormal3.7-5.1[facility] on above: Order Comment: Specimen Type: BLOOD SPECIMENOrdering Facility: [facility] Address:[address] [place], [place] [address]Performed By: #### 20863- 8 ####[facility] LABCLIA [id number] [place], [place] [address]Pffevkr [Mass/Vol]6.3 g/dLNormal6.3-8.0[facility] on above:Order Comment: Specimen Type: BLOOD SPECIMENOrdering Facility: [facility] Address:[address] [place], [place] [address]Performed By: #### 71705-8 ####[facility] LABCLIA [id number] [place], [place] [address]Sbyakg [Moles/Vol]143 mmol/L Utqury926-414MoiitigbxProMedica Memorial Hospital on above:Order Comment: Specimen Type: BLOOD SPECIMENOrdering Facility: [facility] Address:[address] [place], [place] [address]Performed By: #### 72834-8 ####[facility] LABIA [id number] [place] [address] Urea nitrogen [Mass/Vol]12 mg/dLNormal9-24[facility] on above:Order Comment: Specimen Type: BLOOD SPECIMENOrdering Facility: [facility] Address:[address] [place], [place] [address]Performed By: #### 75566-7 ####[facility] LABIA [id number] [place], [place] [address]Kfanohl SerPl-mCncon 01-38-0748Kdmvlfm [Mass/Vol] 36.1 pg/mLNormal<115.0[facility] on above:Order Comment: Specimen Type: BLOOD SPECIMENOrdering Facility: [facility] Address:[address] [place], [place] [address]Result Comment: The Gastrin test was performed using the Siemens Immulite chemiluminescent immunometric method. Results obtained with different assay methods or kits cannot be used interchangeably.Performed By: #### 2333-3 ####[facility] LABCLIA [id number] [facility] HOSPITALQADWWYZTRRD73PMOWRTAAU[address] STREETSEROTONIN BLDon 35-89-5069PDXHPXPJW BJIVN4600 ng/dLFapr46-662BlvxhlodtProMedica Memorial Hospital on above:Order Comment: Specimen Type: BLOOD SPECIMENOrdering Facility: [facility] Address:[address] [place], [place] [address]Result Comment: TEST INFORMATION: Serotonin, SerumThis test was developed and its performance characteristicsdetermined by [facility]. It has not been cleared orapproved by the US Food and Drug Administration. This test wasperformed in a CLIA certified laboratory and is intended forclinical purposes.Performed By: [facility] [place] [address]Ioenomwsmr Director: Chapin Hollis MD, PhDCLIA Number: [id number] By: #### SERTON ####[place] [facility] [id number] [place], [place] [address]IBJGTGJJCQ INTESTINAL POLYPEPTIDE (VIP), PLASMAon 09-84-6644YURQOGBGXT INTESTINAL POLYPEPTIDE<20.2Rcvlnj9.0-89.1[facility] on above:Order Comment: Specimen Type: BLOOD SPECIMENOrdering Facility: [facility] Address:[address] [place], [place] [address]Result Comment: This test was developed and its performance characteristicsdetermined by [facility]. It has not been cleared orapproved by the U.S. Food and Drug Administration. This test wasperformed in a CLIA-certified laboratory and is intended forclinical purposes.Performed By: [facility] [place], [place] [address]Dkpjqutlxo Director: Chapin Hollis MD, PhDCLIA Number: [id number] By: #### VIP ####[facility] [id number] [place], [place] [address]YTZ W Auto Differential panel (Bld)on 27-55-3383Gunvqdqwm (Bld) [#/Vol]0.04 10*3/uL Normal<0.11[facility] on above:Order Comment: Specimen Type: BLOOD SPECIMENOrdering Facility: [facility] Address:[address] [place], [place] [address]Performed By: #### 03022-3 ####[facility] LABCLIA [id number] [place] [address] Basophils/100 WBC (Bld)1.1 %NormalProMedica Memorial Hospital on above: Order Comment: Specimen Type: BLOOD SPECIMENOrdering Facility: [facility] Address:[address] [place], [place] [address]Performed By: #### 14287- 8 ####[facility] LABCLIA [id number] [place], [place] [address]Xrskwruovwot cell count method Nom (Bld)AutoNormal [facility] on above:Order Comment: Specimen Type: BLOOD SPECIMENOrdering Facility: [facility] Address:[address] [place], [place] [address]Performed By: #### 47258-1 ####[facility] LABCLIA [id number] [place], [place] [address]Jtvwtkdgrvc (Bld) [#/Vol]0.13 10*3/uLNormal<0.46[facility] on above: Order Comment: Specimen Type: BLOOD SPECIMENOrdering Facility: [facility] Address:[address] [place], [place] [address]Performed By: #### 86392- 8 ####[facility] LABCLIA [id number] [place], [place] [address]Kthjpxaawtl/100 WBC (Bld)3.7 %NormalProMedica Memorial Hospital on above:Order Comment: Specimen Type: BLOOD SPECIMENOrdering Facility: [facility] Address:[address] [place], [place] [address]Performed By: #### 97458-2 ####[facility] LABIA [id number] [place], [place] [address]Mkinaixgawk distribution width (RBC) [Ratio]18.3 %High11.5-15.0[facility] on above:Order Comment: Specimen Type: BLOOD SPECIMENOrdering Facility: [facility] Address:[address] [place], [place] [address]Performed By: #### 76017- 8 ####[facility] [id number] [place], [place] [address]Rbfbfwopdn (Bld) [Volume fraction]33.7 %Low39.0-51.0 [facility] on above:Order Comment: Specimen Type: BLOOD SPECIMENOrdering Facility: [facility] Address:[address] [place], [place] [address]Performed By: #### 02771-9 ####[facility] LABIA [id number] [place], [place] [address]Twjcgimcso (Bld) [Mass/Vol]10.3 g/dLLow13.0-17.0[facility] on above:Order Comment: Specimen Type: BLOOD SPECIMENOrdering Facility: [facility] Address:[address] [place], [place] [address]Performed By: #### 97952- 8 ####[facility] LABIA [id number] [place], [place] [address]Upiofidv granulocytes (Bld) [#/Vol]10*3/uLNormal<0.10 [facility] on above:Order Comment: Specimen Type: BLOOD SPECIMENOrdering Facility: [facility] Address:[address] [place], [place] [address]Performed By: #### 30232-5 ####[facility] LABCLIA [id number] [place], [place] [address]Mlrxgaez granulocytes/100 WBC (Bld)0.3 %NormalProMedica Memorial Hospital on above: Order Comment: Specimen Type: BLOOD SPECIMENOrdering Facility: [facility] Address:[address] [place], [place] [address]Performed By: #### 58390- 8 ####[facility] LABCLIA [id number] [place], [place] [address]Wihtbapxroo (Bld) [#/Vol]0.37 10*3/uLLow1.00-4.00 [facility] on above:Order Comment: Specimen Type: BLOOD SPECIMENOrdering Facility: [facility] Address:[address] [place], [place] [address]Performed By: #### 84827-2 ####[facility] LABIA [id number] [place], [place] [address]Phhbjiukgxn/100 WBC (Bld)10.5 %NormalProMedica Memorial Hospital on above:Order Comment: Specimen Type: BLOOD SPECIMENOrdering Facility: [facility] Address:[address] [place], [place] [address]Performed By: #### 54345-8 ####[facility] LABCLIA [id number] [place], [place] [address]UGE (RBC) [Entitic mass]29.1 axZyuzuk60.0-34.0[facility] on above:Order Comment: Specimen Type: BLOOD SPECIMENOrdering Facility: [facility] Address:[address] [place], [place] [address]Performed By: #### 08361-5 ####[facility] LABCLIA [id number] [place], [place] [address]FLNJ (RBC) [Mass/Vol]30.6 g/bYGyfrmq60.5-36.0[facility] on above: Order Comment: Specimen Type: BLOOD SPECIMENOrdering Facility: [facility] Address:[address] [place], [place] [address]Performed By: #### 07765- 8 ####[facility] LABCLIA [id number] [place], [place] [address]YFF (RBC) [Entitic vol]95.2 qFVbzrob07.0-100.0[facility] on above:Order Comment: Specimen Type: BLOOD SPECIMENOrdering Facility: [facility] Address:[address] [place], [place] [address]Performed By: #### 87117-7 ####[facility] LABCLIA [id number] [place], [place] [address]Aepfhobgt (Bld) [#/Vol]0.51 10*3/uLNormal<0.87[facility] on above:Order Comment: Specimen Type: BLOOD SPECIMENOrdering Facility: [facility] Address:[address] [place], [place] [address]Performed By: #### 98704- 8 ####[facility] LABCLIA [id number] [place], [place] [address]Kpgafjnta/100 WBC (Bld)14.5 %NormalProMedica Memorial Hospital on above:Order Comment: Specimen Type: BLOOD SPECIMENOrdering Facility: [facility] Address:[address] [place], [place] [address]Performed By: #### 04495-0 ####[facility] LABIA [id number] [place], [place] [address]Smgiezqsriy (Bld) [#/Vol]2.45 10*3/uLNormal1.45-7.50[facility] on above:Order Comment: Specimen Type: BLOOD SPECIMENOrdering Facility: [facility] Address:[address] [place], [place] [address]Performed By: #### 40273-3 ####[facility] LABIA [id number] [place], [place] [address]Cqzgbpoiwgh/100 WBC (Bld)69.9 %NormalProMedica Memorial Hospital on above:Order Comment: Specimen Type: BLOOD SPECIMENOrdering Facility: [facility] Address:[address] [place], [place] [address]Performed By: #### 67831-8 ####[facility] LABIA [id number] [place], [place] [address]Sssisuzmf RBC (Bld) [#/Vol] 10*3/uLNormal<0.01[facility] on above:Order Comment: Specimen Type: BLOOD SPECIMENOrdering Facility: [facility] Address:[address] [place], [place] [address]Performed By: #### 02361-0 ####[facility] LABIA [id number] [place], [place] [address]Unqvzkyky RBC/100 WBC (Bld) [Ratio]0.0 /100 WBCNormal [facility] on above:Order Comment: Specimen Type: BLOOD SPECIMENOrdering Facility: [facility] Address:[address] [place], [place] [address]Performed By: #### 17987-7 ####[facility] LABIA [id number] [place], [place] [address]Mfedsidh mean volume (Bld) [Entitic vol]9.9 fLNormal9.0-12.7[facility] on above:Order Comment: Specimen Type: BLOOD SPECIMENOrdering Facility: [facility] Address:[address] [place] [address] Performed By: #### 27186-9 ####[facility] LABIA [id number] [place], [place] [address]Zbgqhstrt (Bld) [#/Vol]208 10*3/hKKxgjuc811-624QxnhhsrdtProMedica Memorial Hospital on above:Order Comment: Specimen Type: BLOOD SPECIMENOrdering Facility: [facility] Address:[address] [place], [place] [address]Performed By: #### 48028-9 ####[facility] LABCLIA [id number] [place], [place] [address]ULR (Bld) [#/Vol]3.54 10*6/uLLow4.20-6.00[facility] on above:Order Comment: Specimen Type: BLOOD SPECIMENOrdering Facility: [facility] Address:[address] [place], [place] [address]Performed By: #### 32174-4 ####[facility] LABCLIA [id number] [place], [place] [address]HIU (Bld) [#/Vol]3.51 10*3/uL Low3.70-11.00[facility] on above:Order Comment: Specimen Type: BLOOD SPECIMENOrdering Facility: [facility] Address:[address] [place], [place] [address]Performed By: #### 09561-8 ####[facility] LABCLIA [id number] [place] [address] [facility] CBC W AUTO DIFF BLDon 09-78-2505Rhlvcdfsr/100 WBC (Bld)1.1 %[facility] BASOPHILS # BLD AUTO0.04NINFMadison Medical CenterF DIFFERENTIAL METHOD BLDAuto [facility] HealthcareCCF EOSINOPHIL # BLD AUTO0.13NINFNOCox NorthCCF LYMPHOCYTES # BLD AUTO0.37LowNOCox NorthCCF MONOCYTES # BLD AUTO0.51NIDecatur County General Hospital [facility] NEUTROPHILS # BLD AUTO2.45NOCox NorthCCF NRBC # BLD AUTO<0.01NINFNorthwest Medical CenterCCF NRBC/100 WBC BLD-RTO0/100 WBCNOCox NorthCCF PLATELET # BLD KAXK268TVSQCox NorthCCF PMV BLD AUTO9.9 fL9.0 - 12.7 fLNorthwest Medical CenterCCF WBC # BLD AUTO3.51LowNorthwest Medical CenterEosinophils/100 WBC (Bld)3.7 %[facility] Erythrocyte distribution width (RBC) [Ratio]18.3 %High11.5 - 15.0 %[facility] Medical CenterHematocrit (Bld) [Volume fraction]33.7 %Low39.0 - 51.0 %[facility] Medical CenterHemoglobin (Bld) [Mass/Vol]10.3 g/dLLow13.0 - 17.0 g/dLNorthwest Medical Center IMM GRANULOCYTES # BLD AUTO<0.03NINFNorthwest Medical CenterIM GRANULOCYTES/LEUK NFR BLD AUTO0.3 %[facility] Medical CenterInterpretation and review of laboratory resultsAbnormal Northwest Medical CenterLymphocytes/100 WBC (Bld)10.5 %[facility] HealthcareH (RBC) [Entitic mass]29.1 pg26.0 - 34.0 pgCitizens Memorial HealthcareHC (RBC) [Mass/Vol]30.6 g/dL30.5 - 36.0 g/dLCitizens Memorial HealthcareV (RBC) [Entitic vol]95.2 fL80.0 - 100.0 fLNorthwest Medical CenterMonocytes/100 WBC (Bld)14.5 %[facility] Medical CenterNeutrophils/100 WBC (Bld) 69.9 %[facility] Medical CenterRBC (Bld) [#/Vol]3.54 10*6/uLLow4.20 - 6.00 m/uLNorthwest Medical CenterSpecimen Type: BLOOD SPECIMEN [facility] Address: [address] [place] [address] Original Ordering Provider: ROSELYN ARMIJOFreeman Cancer Institute PaulEricalma delia 20-30-1412Pmgqctpjgxjk A [Mass/Vol]224.8 ng/mLHigh<187.0[facility] CenterCombeaumont hospital on above:Order Comment: Specimen Type: BLOOD SPECIMENOrdering Facility: [facility] Address:[address] [place], [place] [address]Result Comment: The Chromogranin A test was performed using the BRAHMS CgA II KRYPTOR method. Results obtained with different assay methods or kits cannot be used interchangeably.Performed By: #### 9811-1 ####[facility] LABCLIA [id number] [place] [address] [place] STATES OF AMERICAComprehensive metabolic 2000 panelon 12-30-2024 Albumin [Mass/Vol]4.1 g/dLNormal3.9-4.9[facility] on above:Order Comment: Specimen Type: BLOOD SPECIMENOrdering Facility: [facility] Address:[address] [place], [place] [address]Performed By: #### 90786-7 ####[facility] LABIA [id number] [place], [place] [address]KJQ [Catalytic activity/Vol]151 U/TEknk60-222 [facility] on above:Order Comment: Specimen Type: BLOOD SPECIMENOrdering Facility: [facility] Address:[address] [place], [place] [address]Performed By: #### 39016-7 ####[facility] LABIA [id number] [facility] [place], [place] [address]NBZ [Catalytic activity/Vol]14 U/GPlejez04-07NzbksyrtbProMedica Memorial Hospital on above:Order Comment: Specimen Type: BLOOD SPECIMENOrdering Facility: [facility] Address:[address] [place], [place] [address]Performed By: #### 73807- 8 ####[facility] LABCLIA [id number] [facility] [place], [place] [address]Dzpzq gap [Moles/Vol]11 mmol/LNormal8-15[facility] on above:Order Comment: Specimen Type: BLOOD SPECIMENOrdering Facility: [facility] Address:[address] [place], [place] [address]Performed By: #### 38794-8 ####[facility] LABIA [id number] [place], [place] [address]VAM [Catalytic activity/Vol]28 U/UOrgfpv01-79NkdxccvltProMedica Memorial Hospital on above:Order Comment: Specimen Type: BLOOD SPECIMENOrdering Facility: [facility] Address:[address] [place], [place] [address]Performed By: #### 03650-7 ####[facility] LABCLIA [id number] [place] [address] Bilirubin [Mass/Vol]0.3 mg/dLNormal0.2-1.3[facility] on above:Order Comment: Specimen Type: BLOOD SPECIMENOrdering Facility: [facility] Address:[address] [place], [place] [address]Performed By: #### 30972-7 ####[facility] LABCLIA [id number] [facility] [place], [place] [address]Hptzdyv [Mass/Vol]8.2 mg/dLLow8.5-10.2[facility] on above:Order Comment: Specimen Type: BLOOD SPECIMENOrdering Facility: [facility] Address:[address] [place], [place] [address]Performed By: #### 88715-0 ####[facility] LABCLIA [id number] [place], [place] [address]Ohowayfd [Moles/Vol]113 mmol/PMvbq68-206KdplmbomyProMedica Memorial Hospital on above:Order Comment: Specimen Type: BLOOD SPECIMENOrdering Facility: [facility] Address:[address] [place], [place] [address]Performed By: #### 47556- 8 ####[facility] LABCLIA [id number] [facility] [place], [place] [address]QR0 [Moles/Vol]17 mmol/DXyu35-86MttsrrowwProMedica Memorial Hospital on above:Order Comment: Specimen Type: BLOOD SPECIMENOrdering Facility: [facility] Address:[address] [place], [place] [address]Performed By: #### 11794-6 ####[facility] LABCLIA [id number] [place], [place] [address]Njcvkhamtn [Mass/Vol]1.20 mg/dL Normal0.73-1.22[facility] on above:Order Comment: Specimen Type: BLOOD SPECIMENOrdering Facility: [facility] Address:[address] [place], [place] [address]Performed By: #### 89472-6 ####[facility] LABCLIA [id number] [place], [place] [address]Twtuuuuebw and Glomerular filtration rate.predicted panel (S/P/Bld)65 mL/min/1.73m???Normal>=60[facility] on above:Order Comment: Specimen Type: BLOOD SPECIMENOrdering Facility: [facility] Address:[address] [place], [place] [address]Result Comment: Estimated Glomerular Filtration Rate (eGFR) is calculated using the 2020 CKD-EPI creatinine equation. This equation utilizes serum creatinine, sex, and age as parameters. The creatinine assay has traceable calibration to isotope dilution- mass spectrometry. Refer to KDIGO guidelines for clinical interpretation. In patients with unstable renal function, e.g. those with acute kidney injury, the eGFR may not accurately reflect actual GFR.Performed By: #### 90793-4 ####[facility] LABCLIA [id number] [place], [place] [address]Qoljnvu [Mass/Vol]87 mg/tVJbngoa72-08RoqhupzgzProMedica Memorial Hospital on above:Order Comment: Specimen Type: BLOOD SPECIMENOrdering Facility: [facility] Address:[address] [place], [place] [address]Result Comment: The [place] Diabetes Association (ADA) provides guidance for cutoff values for fasting glucose and random glucose. The ADA defines fasting as no caloric intake for at least 8 hours. Fasting plasma glucose results between 100 to 125 mg/dL indicate increased risk for diabetes (prediab etes).Fasting plasma glucose results greater than or equal to 126 mg/dL meet the criteria for diagnosis of diabetes. In the absence of unequivocal hyperglycemia, results should be confirmed by repeattesting. In a patient with classic symptoms of hyperglycemia or hyperglycemic crisis, random plasmaglucose results greater than or equal to 200 mg/dL meet the criteria for diagnosis of diabetes.Reference: Standards of Medical Care in Diabetes 2016, [place] [employer] Association. Diabetes Care. 2016.39(Suppl 1).Performed By: #### 33120-5 ####[facility] LABCLIA [id number] [place], [place] [address]Hlrthejpn [Moles/Vol]4.9 mmol/LNormal3.7-5.1[facility] on above:Order Comment: Specimen Type: BLOOD SPECIMENOrdering Facility: [facility] Address:[address] [place], [place] [address]Performed By: #### 25694-0 ####[facility] LABCLIA [id number] [place], [place] [address]Wyyfadz [Mass/Vol]6.5 g/dLNormal6.3-8.0[facility] on above:Order Comment: Specimen Type: BLOOD SPECIMENOrdering Facility: [facility] Address:[address] [place], [place] [address]Performed By: #### 92553- 8 ####[facility] LABCLIA [id number] [place], [place] [address]Wphway [Moles/Vol]141 mmol/LNqpufk014-952MwcovaosgProMedica Memorial Hospital on above:Order Comment: Specimen Type: BLOOD SPECIMENOrdering Facility: [facility] Address:[address] [place], [place] [address]Performed By: #### 47078-1 ####[facility] LABIA [id number] [place], [place] [address]Oiwl nitrogen [Mass/Vol]16 mg/dLNormal9-24[facility] on above:Order Comment: Specimen Type: BLOOD SPECIMENOrdering Facility: [facility] Address:[address] [place], [place] [address]Performed By: #### 41842-4 ####[facility] LABCLIA [id number] [place], [place] [address]Evwuncc SerPl-mCncon 79-29-7634Pedflkl [Mass/Vol]57.3 pg/mLNormal<115.0[facility] on above:Order Comment: Specimen Type: BLOOD SPECIMENOrdering Facility: [facility] Address:[address] [place], [place] [address]Result Comment: The Gastrin test was performed using the Siemens Immulite chemiluminescent immunometric method. Results obtained with different assay methods or kits cannot be used interchangeably.Performed By: #### 2333-3 ####[facility] LABCLIA [id number] [address]ETSEROTONIN BLDon 61-60-7517WWUEAPTOK QSFAU9378 ng/dRKddi94-342SjsdxzsbvProMedica Memorial Hospital on above:Order Comment: Specimen Type: BLOOD SPECIMENOrdering Facility: [facility] Address:[address] [place], [place] [address]Result Comment: Originally reported on 01-02-2025 15:19 (Date/Mountain Time).Reference intervals and/or result interpretation may have changed.TEST INFORMATION: Serotonin, SerumThis test was developed and its performance characteristicsdetermined by [facility]. It has not been cleared orapproved by the [place] Food and Drug Administration. This test wasperformed in a CLIA certified laboratory and is intended forclinical purposes.Corrected from 1734 ng/mL [HI] on 01/11/25 15:33:23 [place] [id number] .Performed By: [facility] [place], [place] [address]Ojtkkcobwl Director: Chapin Hollis MD, PhDCLIA Number: [id number] Performed By: #### SERTON ####[facility] [id number] [place], [place] [address]FPQTFNMLEU INTESTINAL POLYPEPTIDE (VIP), PLASMAon 87-87-4319BRSWVFUTNG INTESTINAL FZHRZCANUKJ90.6 pg/mLNormal0.0-89.1[facility] on above:Order Comment: Specimen Type: BLOOD SPECIMENOrdering Facility: [facility] Address:[address] [place], [place] [address]Result Comment: This test was developed and its performance characteristicsdetermined by [facility]. It has not been cleared orapproved by the U.S. Food and Drug Administration. This test wasperformed in a CLIA-certified laboratory and is intended forclinical purposes.Performed By: NETurn[address] [place] [address]Ctpvonllts Director: Chapin Hollis MD, PhDCLIA Number: [id number] By: #### VIP ####[facility] [id number] [place], [place] [address]HPX W Auto Differential panel (Bld)on 72-99-4533Mhhlbogwg (Bld) [#/Vol]0.04 10*3/uL Normal<0.11[facility] on above:Order Comment: Specimen Type: BLOOD SPECIMENOrdering Facility: [facility] Address:[address] [place], [place] [address]Performed By: #### 59821-9 ####[facility] LABCLIA [id number] [place] [address] Basophils/100 WBC (Bld)0.9 %NormalProMedica Memorial Hospital on above: Order Comment: Specimen Type: BLOOD SPECIMENOrdering Facility: [facility] Address:[address] [place], [place] [address]Performed By: #### 18433- 8 ####[facility] LABCLIA [id number] [place], [place] [address]Anovhznsakir cell count method Nom (Bld)AutoNormal [facility] on above:Order Comment: Specimen Type: BLOOD SPECIMENOrdering Facility: [facility] Address:[address] [place], [place] [address]Performed By: #### 49709-3 ####[facility] LABCLIA [id number] [place], [place] [address]Cfmiwcuzdko (Bld) [#/Vol]0.16 10*3/uLNormal<0.46[facility] on above: Order Comment: Specimen Type: BLOOD SPECIMENOrdering Facility: [facility] Address:[address] [place], [place] [address]Performed By: #### 98302- 8 ####[facility] LABCLIA [id number] [place], [place] [address]Xauszvgfzdp/100 WBC (Bld)3.7 %NormalProMedica Memorial Hospital on above:Order Comment: Specimen Type: BLOOD SPECIMENOrdering Facility: [facility] Address:[address] [place], [place] [address]Performed By: #### 54946-9 ####[facility] LABCLIA [id number] [place], [place] [address]Gkguzzixpyt distribution width (RBC) [Ratio]16.1 %High11.5-15.0[facility] on above:Order Comment: Specimen Type: BLOOD SPECIMENOrdering Facility: [facility] Address:[address] [place], [place] [address]Performed By: #### 51571- 8 ####[facility] LABCLIA [id number] [place], [place] [address]Okfbfdraii (Bld) [Volume fraction]26.9 %Low39.0-51.0 [facility] on above:Order Comment: Specimen Type: BLOOD SPECIMENOrdering Facility: [facility] Address:[address] [place], [place] [address]Performed By: #### 36590-0 ####[facility] LABIA [id number] [place], [place] [address]Xoxzhgjqqa (Bld) [Mass/Vol]8.3 g/dLLow13.0-17.0[facility] on above:Order Comment: Specimen Type: BLOOD SPECIMENOrdering Facility: [facility] Address:[address] [place], [place] [address]Performed By: #### [id number]- [id number] ####[facility] LABCLIA [id number] [place], [place] [address]Hskferbr granulocytes (Bld) [#/Vol]0.04 10*3/uLNormal <0.10[facility] on above:Order Comment: Specimen Type: BLOOD SPECIMENOrdering Facility: [facility] Address:[address] [place], [place] [address]Performed By: #### 93526-0 ####[facility] LABCLIA [id number] [place], [place] [address]Igahvjak granulocytes/100 WBC (Bld)0.9 %NormalProMedica Memorial Hospital on above: Order Comment: Specimen Type: BLOOD SPECIMENOrdering Facility: [facility] Address:[address] [place], [place] [address]Performed By: #### 58997- 8 ####[facility] LABCLIA [id number] [place], [place] [address]Hcibczddwjy (Bld) [#/Vol]0.35 10*3/uLLow1.00-4.00 [facility] on above:Order Comment: Specimen Type: BLOOD SPECIMENOrdering Facility: [facility] Address:[address] [place], [place] [address]Performed By: #### 82642-5 ####[facility] LABCLIA [id number] [place], [place] [address]Vtlbzzuprky/100 WBC (Bld)8.1 %NormalProMedica Memorial Hospital on above:Order Comment: Specimen Type: BLOOD SPECIMENOrdering Facility: [facility] Address:[address] [place], [place] [address]Performed By: #### 57368-6 ####[facility] LABIA [id number] [place], [place] [address]ZDH (RBC) [Entitic mass]28.5 tfKknths76.0-34.0[facility] on above:Order Comment: Specimen Type: BLOOD SPECIMENOrdering Facility: [facility] Address:[address] [place], [place] [address]Performed By: #### 04699-6 ####[facility] LABCLIA [id number] [place], [place] [address]WUKF (RBC) [Mass/Vol]30.9 g/wDJxjqcf05.5-36.0[facility] on above: Order Comment: Specimen Type: BLOOD SPECIMENOrdering Facility: [facility] Address:[address] [place], [place] [address]Performed By: #### 36287- 8 ####[facility] LABCLIA [id number] [place], [place] [address]NPK (RBC) [Entitic vol]92.4 fQCoqnec15.0-100.0[facility] on above:Order Comment: Specimen Type: BLOOD SPECIMENOrdering Facility: [facility] Address:[address] [place], [place] [address]Performed By: #### 25791-9 ####[facility] LABCLIA [id number] [place], [place] [address]Ywoekiszh (Bld) [#/Vol]0.65 10*3/uLNormal<0.87[facility] on above:Order Comment: Specimen Type: BLOOD SPECIMENOrdering Facility: [facility] Address:[address] [place], [place] [address]Performed By: #### 56630- 8 ####[facility] LABCLIA [id number] [place], [place] [address]Bztmegaac/100 WBC (Bld)15.0 %NormalProMedica Memorial Hospital on above:Order Comment: Specimen Type: BLOOD SPECIMENOrdering Facility: [facility] Address:[address] [place], [place] [address]Performed By: #### 32737-1 ####[facility] LABCLIA [id number] [place], [place] [address]Tnakwteivzz (Bld) [#/Vol]3.08 10*3/uLNormal1.45-7.50[facility] on above:Order Comment: Specimen Type: BLOOD SPECIMENOrdering Facility: [facility] Address:[address] [place], [place] [address]Performed By: #### 30924-4 ####[facility] LABCLIA [id number] [place], [place] [address]Qdkzxjwruui/100 WBC (Bld)71.4 %NormalProMedica Memorial Hospital on above:Order Comment: Specimen Type: BLOOD SPECIMENOrdering Facility: [facility] Address:[address] [place], [place] [address]Performed By: #### 19368-0 ####[facility] LABCLIA [id number] [place], [place] [address]Konmadzje RBC (Bld) [#/Vol] 10*3/uLNormal<0.01[facility] on above:Order Comment: Specimen Type: BLOOD SPECIMENOrdering Facility: [facility] Address:[address] [place], [place] [address]Performed By: #### 06952-0 ####[facility] LABCLIA [id number] [place], [place] [address]Oitexgsyw RBC/100 WBC (Bld) [Ratio]0.0 /100 WBCNormal [facility] on above:Order Comment: Specimen Type: BLOOD SPECIMENOrdering Facility: [facility] Address:[address] [place], [place] [address]Performed By: #### 49502-1 ####[facility] LABIA [id number] [place], [place] [address]Dtmzmyvz mean volume (Bld) [Entitic vol]9.4 fLNormal9.0-12.7CM[facility] on above:Order Comment: Specimen Type: BLOOD SPECIMENOrdering Facility: [facility] Address:[address] [place] [address] Performed By: #### 01378-0 ####[facility] LABCLIA [id number] [place], [place] [address]Ebshxwohh (Bld) [#/Vol]281 10*3/lRAfydkt324-110KfkpogbweProMedica Memorial Hospital on above:Order Comment: Specimen Type: BLOOD SPECIMENOrdering Facility: [facility] Address:[address] [place], [place] [address]Performed By: #### 50311-9 ####[facility] LABIA [id number] [place], [place] [address]IZN (Bld) [#/Vol]2.91 10*6/uLLow4.20-6.00[facility] on above:Order Comment: Specimen Type: BLOOD SPECIMENOrdering Facility: [facility] Address:[address] [place], [place] [address]Performed By: #### 23210-2 ####[facility] LABIA [id number] [place], [place] [address]CCL (Bld) [#/Vol]4.32 10*3/uL Normal3.70-11.00[facility] on above:Order Comment: Specimen Type: BLOOD SPECIMENOrdering Facility: [facility] Address:[address] [place], [place] [address]Performed By: #### 96480-4 ####[facility] LABIA [id number] [place], [place] [address]OKT CBC W AUTO DIFF BLDon 16-52-5171Oguvokevc/100 WBC (Bld)0.9 %[facility] HealthcareCC[facility] BASOPHILS # BLD AUTO0.04NINFNOMS HealthcareCCF DIFFERENTIAL METHOD BLDAutoNOMS HealthcareCCF EOSINOPHIL # BLD AUTO0.16NILivingston Regional Hospital LYMPHOCYTES # BLD AUTO0.35LowSaint Luke's Health System MONOCYTES # BLD AUTO0.65NILivingston [facility] Hospital NEUTROPHILS # BLD AUTO3.08[facility] NRBC # BLD AUTO<0.01NILivingston Regional Hospital NRBC/100 WBC BLD-RTO0/100 WBCSaint Luke's Health System PLATELET # BLD NAWW150ZDKOSaint Luke's Health System PMV BLD AUTO9.4 fL9.0 - 12.7 fLSaint Luke's Health System WBC # BLD AUTO4.32[facility] CenterEosinophils/100 WBC (Bld)3.7 %[facility] Medical CenterErythrocyte distribution width (RBC) [Ratio]16.1 %High 11.5 - 15.0 %[facility] Medical CenterHematocrit (Bld) [Volume fraction]26.9 %Low39.0 - 51.0 %[facility] Medical CenterHemoglobin (Bld) [Mass/Vol]8.3 g/dLLow13.0 - 17.0 g/dLCameron Regional Medical Center GRANULOCYTES # BLD AUTO0.04NIRegional Hospital of Jackson GRANULOCYTES/LEUK NFR BLD AUTO0.9 %[facility] Medical CenterInterpretation and review of laboratory resultsAbnormFox Chase Cancer CenterLymphocytes/100 WBC (Bld)8.1 %[facility]izens Memorial HealthcareH (RBC) [Entitic mass]28.5 pg26.0 - 34.0 pgCitizens Memorial HealthcareHC (RBC) [Mass/Vol]30.9 g/dL30.5 - 36.0 g/dLCitizens Memorial HealthcareV (RBC) [Entitic vol]92.4 fL 80.0 - 100.0 fLNorthwest Medical CenterMonocytes/100 WBC (Bld)15 %[facility] Neutrophils/100 WBC (Bld)71.4 %[facility] Medical CenterRBC (Bld) [#/Vol]2.91 10*6/uLLow 4.20 - 6.00 m/uLNorthwest Medical CenterSpecimen Type: BLOOD SPECIMEN [facility] Address: [address] [place] [address] Original Ordering Provider: ROSELYN ARMIJONorthwest Medical CenterComprehensive metabolic 2000 panelon 51-37-0692Syxhrwi [Mass/Vol]4.0 g/dLNormal3.9-4.9 [facility] on above:Order Comment: Specimen Type: BLOOD SPECIMENOrdering Facility: [facility] Address:[address] [place], [place] [address]Performed By: #### 14545-5 ####[facility] LABCLIA [id number] [place], [place] [address]NDG [Catalytic activity/Vol]138 U/UCmrk98-012UcjiltppxProMedica Memorial Hospital on above:Order Comment: Specimen Type: BLOOD SPECIMENOrdering Facility: [facility] Address:[address] [place], [place] [address]Performed By: #### 54085- 8 ####[facility] LABCLIA [id number] [facility] [place], [place] [address]BKO [Catalytic activity/Vol]11 U/BFxenka68-85HiwlfevpiProMedica Memorial Hospital on above:Order Comment: Specimen Type: BLOOD SPECIMENOrdering Facility: [facility] Address:[address] [place], [place] [address]Performed By: #### 77628-1 ####[facility] LABCLIA [id number] [place], [place] [address]Djkbr gap [Moles/Vol]10 mmol/LNormal8-15[facility] on above:Order Comment: Specimen Type: BLOOD SPECIMENOrdering Facility: [facility] Address:[address] [place], [place] [address]Performed By: #### 29820- 8 ####[facility] LABCLIA [id number] [facility] [place], [place] [address]VMQ [Catalytic activity/Vol]21 U/JJquwdq83-07YvupfefuwProMedica Memorial Hospital on above:Order Comment: Specimen Type: BLOOD SPECIMENOrdering Facility: [facility] Address:[address] [place], [place] [address]Performed By: #### 04622-6 ####[facility] LABCLIA [id number] MEGAN OPONAMHONORHEALTH SC[facility] OSBORN MEDICAL CENTERMANOLOSURREY, [place] [address]Emkpuxksv [Mass/Vol]0.3 mg/dLNormal0.2-1.3CM[facility] on above:Order Comment: Specimen Type: BLOOD SPECIMENOrdering Facility: [facility] Address:[address] [place], [place] [address]Performed By: #### 16628- 8 ####[facility] LABCLIA [id number] [facility] [place], [place] [address]Xlyifgd [Mass/Vol]8.9 mg/dLNormal8.5-10.2CM[facility] on above:Order Comment: Specimen Type: BLOOD SPECIMENOrdering Facility: [facility] Address:[address] [place], [place] [address]Performed By: #### 30780-8 ####[facility] LABCLIA [id number] [facility] [place], [place] [address]Nltsqlwa [Moles/Vol]113 mmol/L Wfuu23-396SvxzytoglProMedica Memorial Hospital on above:Order Comment: Specimen Type: BLOOD SPECIMENOrdering Facility: [facility] Address:[address] [place], [place] [address]Performed By: #### 87063-8 ####[facility] LABCLIA [id number] [facility] [place] [address] CO2 [Moles/Vol]21 mmol/CJvj65-95CqqpipurjProMedica Memorial Hospital on above:Order Comment: Specimen Type: BLOOD SPECIMENOrdering Facility: [facility] Address:[address] [place], [place] [address]Performed By: #### 15765- 8 ####[facility] LABCLIA [id number] [facility] RAMOSHONORHE[facility] OS[facility]ORN MEDICAL [place]ENTERTRACIM[place], [place] [address]Uhxhozfbor [Mass/Vol]1.16 mg/dLNormal0.73-1.22[facility] on above:Order Comment: Specimen Type: BLOOD SPECIMENOrdering Facility: [facility] Address:[address] [place] [address]Asztmctya By: #### 38045-6 ####[facility] LABCLIA [id number] [place], [place] [address]Oryefrnjdf and Glomerular filtration rate.predicted panel (S/P/Bld)68 mL/min/1.73m???Normal>=60 [facility] on above:Order Comment: Specimen Type: BLOOD SPECIMENOrdering Facility: [facility] Address:[address] [place] [address]Zgffqd Comment: Estimated Glomerular Filtration Rate (eGFR) is calculated using the 2020 CKD-EPI creatinine equation. This equation utilizes serum creatinine, sex, and age as parameters. The creatinine assay has traceable calibration to isotope dilution-mass spectrometry. Refer to KDIGO guidelines for clinical interpretation. In patients with unstable renal function, e.g. those with acute kidney injury, the eGFR may not accurately reflect actual GFR.Performed By: #### 26855-1 ####[facility] LABCLIA [id number] [place], [place] [address]Rwntgsh [Mass/Vol]107 mg/tFMuns03-05GjycpjyslProMedica Memorial Hospital on above:Order Comment: Specimen Type: BLOOD SPECIMENOrdering Facility: [facility] Address:[address] [place] [address]Aqbldk Comment: The [place] Diabetes Association (ADA) provides guidance for cutoff values for fast ing glucose and random glucose. The ADA defines fasting as no caloric intake for at least 8 hours. Fasting plasma glucose results between 100 to 125 mg/dL indicate increased risk for diabetes (prediabetes).Fasting plasma glucose results greater than or equal to 126 mg/dL meet the criteria for diagnosis of diabetes. In the absence of unequivocal hyperglycemia, results should be confirmed by repeattesting. In a patient with classic symptoms of hyperglycemia or hyperglycemic crisis, random plasmaglucose results greater than or equal to 200 mg/dL meet the criteria for diagnosis of diabetes.Reference: Standards of Medical Care in Diabetes 2016, [place] [employer]. Diabetes Care. 2016.39(Suppl 1).Performed By: #### 27489-0 ####[facility] LABCLIA [id number] [place], [place] [address]Tkcbmtxls [Moles/Vol]5.0 mmol/LNormal3.7-5.1CM[facility] on above: Order Comment: Specimen Type: BLOOD SPECIMENOrdering Facility: [facility] Address:[address] [place], [place] [address]Performed By: #### 46606- 8 ####[facility] LABCLIA [id number] [place], [place] [address]Axuciwa [Mass/Vol]6.7 g/dLNormal6.3-8.0[facility] on above:Order Comment: Specimen Type: BLOOD SPECIMENOrdering Facility: [facility] Address:[address] [place], [place] [address]Performed By: #### 83305-0 ####[facility] LABIA [id number] [place], [place] [address]Jiulco [Moles/Vol]144 mmol/L Qwzkfn955-421LjixmlepkProMedica Memorial Hospital on above:Order Comment: Specimen Type: BLOOD SPECIMENOrdering Facility: [facility] Address:[address] [place], [place] [address]Performed By: #### 55169-3 ####[facility] LABIA [id number] [place] [address] Urea nitrogen [Mass/Vol]12 mg/dLNormal9-24[facility] on above:Order Comment: Specimen Type: BLOOD SPECIMENOrdering Facility: [facility] Address:[address] [place], [place] [address]Performed By: #### 19023-1 ####[facility] LABIA [id number] [place], [place] [address]Cfklraog [facility] Hospitalon 24-19-9543Vpnktvtx [Mass/Vol] 266.0 ng/mDQlserj10.3-565.7CM[facility] on above:Order Comment: Specimen Type: BLOOD SPECIMENOrdering Facility: [facility] Address:[address] [place], [place] [address]Performed By: #### 2132- 9, 42913-9, 2284-8, 6-4 ####[facility] LABCLIA [id number] [place] [address] [place] OF AMERICAFolate SerPl-mCncon 34-78-3557Utjloz [Mass/Vol]4.8 ng/mLNormal>4.7CM[facility] on above:Order Comment: Specimen Type: BLOOD SPECIMENOrdering Facility: [facility] Address:[address] [place], [place] [address]Performed By: #### 2132-9, 03688-0, 4-8, 6-4 ####[facility] LABCLIA [id number] [address] STATES OF MAGRUDER HOSPITALIron and Iron binding capacity panelon 30-01-9937Mvma [Mass/Vol]350 ug/sMIaar44-720DinzupvuxProMedica Memorial Hospital on above:Order Comment: Specimen Type: BLOOD SPECIMENOrdering Facility: [facility] Address:[address] [place], [place] [address]Performed By: #### 2132- 9, 73876-7, 4-8, 2275-4 ####[facility] LABCLIA [id number] [place] [address] STATES OF AMERICAIron binding capacity [Mass/Vol]499 ug/wDUgvm885-866OlnqqktpiProMedica Memorial Hospital on above:Order Comment: Specimen Type: BLOOD SPECIMENOrdering Facility: [facility] Address:[address] [place] [address] Performed By: #### 2132-9, 17061-8, 2284-8, 6-4 ####[facility] LABCLIA [id number] [address] OF AMERICAIron/TIBC [Molar ratio]70.1 %High15.0-57.0[facility] on above:Order Comment: Specimen Type: BLOOD SPECIMENOrdering Facility: [facility] Address:[address] [place], [place] [address]Performed By: #### 2132-9, 67558-4, 2284-8, 6-4 ####[facility] LABCLIA [id number] [address] STREETVit B12 SerPl-mCncon 36-47-7089Ljueeebat (Vitamin B12) [Mass/Vol]763 pg/cTYjsrzt748-0318YkovyfwfdMary Rutan Hospital on above: Order Comment: Specimen Type: BLOOD SPECIMENOrdering Facility: [facility] Address:[address] [place], [place] [address]Performed By: #### 2132- 9, 49162-0, 2283-8, 6-4 ####[facility] LABCLIA [id number] [place] [id number] [facility]OSPITALCB W Auto Differential panel (Bld)on 16-59-8764Uowxxhsrq (Bld) [#/Vol]0.03 10*3/uL Normal<0.11CM[facility] on above:Order Comment: Specimen Type: BLOOD SPECIMENOrdering Facility: [facility] Address:[address] [place], [place] [address]Performed By: #### 61872-8 ####[facility] LABCLIA [id number] [place] [address] Basophils/100 WBC (Bld)0.6 %NormalProMedica Memorial Hospital on above: Order Comment: Specimen Type: BLOOD SPECIMENOrdering Facility: [facility] Address:[address] [place], [place] [address]Performed By: #### 76654- 8 ####[facility] LABCLIA [id number] [place], [place] [address]Qpbnknyvkydw cell count method Nom (Bld)AutoNormal [facility] on above:Order Comment: Specimen Type: BLOOD SPECIMENOrdering Facility: [facility] Address:[address] [place], [place] [address]Performed By: #### 74784-9 ####[facility] LABCLIA [id number] [place], [place] [address]Mmydmffaeqt (Bld) [#/Vol]0.25 10*3/uLNormal<0.46[facility] on above: Order Comment: Specimen Type: BLOOD SPECIMENOrdering Facility: [facility] Address:[address] [place], [place] [address]Performed By: #### 15990- 8 ####[facility] LABCLIA [id number] [place], [place] [address]Svqagrnzrmd/100 WBC (Bld)5.4 %NormalProMedica Memorial Hospital on above:Order Comment: Specimen Type: BLOOD SPECIMENOrdering Facility: [facility] Address:[address] [place], [place] [address]Performed By: #### 15603-6 ####[facility] LABCLIA [id number] [place], [place] [address]Bzyfdnkkqvh distribution width (RBC) [Ratio]15.5 %High11.5-15.0[facility] on above:Order Comment: Specimen Type: BLOOD SPECIMENOrdering Facility: [facility] Address:[address] [place], [place] [address]Performed By: #### 33096- 8 ####[facility] LABIA [id number] [place], [place] [address]Jprtlktyvo (Bld) [Volume fraction]24.3 %Low39.0-51.0 [facility] on above:Order Comment: Specimen Type: BLOOD SPECIMENOrdering Facility: [facility] Address:[address] [place], [place] [address]Performed By: #### 49946-3 ####[facility] LABCLIA [id number] [place], [place] [address]Rnxtudmfdn (Bld) [Mass/Vol]7.5 g/dLLow13.0-17.0[facility] on above:Order Comment: Specimen Type: BLOOD SPECIMENOrdering Facility: [facility] Address:[address] [place], [place] [address]Performed By: #### 15678- 8 ####[facility] LABCLIA [id number] [place], [place] [address]Ukjsgxoa granulocytes (Bld) [#/Vol]10*3/uLNormal<0.10 [facility] on above:Order Comment: Specimen Type: BLOOD SPECIMENOrdering Facility: [facility] Address:[address] [place], [place] [address]Performed By: #### 33621-0 ####[facility] LABCLIA [id number] [place], [place] [address]Kfprfgyz granulocytes/100 WBC (Bld)0.2 %NormalProMedica Memorial Hospital on above: Order Comment: Specimen Type: BLOOD SPECIMENOrdering Facility: [facility] Address:[address] [place], [place] [address]Performed By: #### 36238- 8 ####[facility] LABCLIA [id number] [place], [place] [address]Qzmvlenodfw (Bld) [#/Vol]0.53 10*3/uLLow1.00-4.00 [facility] on above:Order Comment: Specimen Type: BLOOD SPECIMENOrdering Facility: [facility] Address:[address] [place], [place] [address]Performed By: #### 97034-3 ####[facility] LABIA [id number] [place], [place] [address]Cnysrzttcfq/100 WBC (Bld)11.5 %NormalProMedica Memorial Hospital on above:Order Comment: Specimen Type: BLOOD SPECIMENOrdering Facility: [facility] Address:[address] [place], [place] [address]Performed By: #### 30556-9 ####[facility] LABCLIA [id number] [place], [place] [address]XTR (RBC) [Entitic mass]28.4 ubDdfegf44.0-34.0[facility] on above:Order Comment: Specimen Type: BLOOD SPECIMENOrdering Facility: [facility] Address:[address] [place], [place] [address]Performed By: #### 11508-3 ####[facility] LABCLIA [id number] [place], [place] [address]TCXV (RBC) [Mass/Vol]30.9 g/wLQlcidb06.5-36.0[facility] on above: Order Comment: Specimen Type: BLOOD SPECIMENOrdering Facility: [facility] Address:[address] [place], [place] [address]Performed By: #### 45538- 8 ####[facility] LABCLIA [id number] [place], [place] [address]QLQ (RBC) [Entitic vol]92.0 xIKzajoq35.0-100.0[facility] on above:Order Comment: Specimen Type: BLOOD SPECIMENOrdering Facility: [facility] Address:[address] [place], [place] [address]Performed By: #### 53229-3 ####[facility] LABCLIA [id number] [place], [place] [address]Itlirnxzd (Bld) [#/Vol]0.69 10*3/uLNormal<0.87[facility] on above:Order Comment: Specimen Type: BLOOD SPECIMENOrdering Facility: [facility] Address:[address] [place], [place] [address]Performed By: #### 29679- 8 ####[facility] LABCLIA [id number] [place], [place] [address]Bwxtordbd/100 WBC (Bld)14.9 %NormalProMedica Memorial Hospital on above:Order Comment: Specimen Type: BLOOD SPECIMENOrdering Facility: [facility] Address:[address] [place], [place] [address]Performed By: #### 32046-3 ####[facility] LABCLIA [id number] [place], [place] [address]Yupwgnnczvk (Bld) [#/Vol]3.11 10*3/uLNormal1.45-7.50[facility] on above:Order Comment: Specimen Type: BLOOD SPECIMENOrdering Facility: [facility] Address:[address] [place], [place] [address]Performed By: #### 13369-8 ####[facility] LABCLIA [id number] [place], [place] [address]Jqjdrfdgprn/100 WBC (Bld)67.4 %NormalProMedica Memorial Hospital on above:Order Comment: Specimen Type: BLOOD SPECIMENOrdering Facility: [facility] Address:[address] [place], [place] [address]Performed By: #### 42038-3 ####[facility] LABCLIA [id number] [place], [place] [address]Jjfloflac RBC (Bld) [#/Vol] 10*3/uLNormal<0.01[facility] on above:Order Comment: Specimen Type: BLOOD SPECIMENOrdering Facility: [facility] Address:[address] [place], [place] [address]Performed By: #### 16395-9 ####[facility] LABCLIA [id number] [place], [place] [address]Oucdfrnvu RBC/100 WBC (Bld) [Ratio]0.0 /100 WBCNormal [facility] on above:Order Comment: Specimen Type: BLOOD SPECIMENOrdering Facility: [facility] Address:[address] [place], [place] [address]Performed By: #### 18080-4 ####[facility] LABCLIA [id number] [place], [place] [address]Bchjlbop mean volume (Bld) [Entitic vol]10.5 fLNormal9.0-12.7CM[facility] on above:Order Comment: Specimen Type: BLOOD SPECIMENOrdering Facility: [facility] Address:[address] [place] [address] Performed By: #### 40380-5 ####[facility] LABCLIA [id number] [place], [place] [address]Tzykaimmf (Bld) [#/Vol]243 10*3/eKWitlue758-103RglujdxwwProMedica Memorial Hospital on above:Order Comment: Specimen Type: BLOOD SPECIMENOrdering Facility: [facility] Address:[address] [place], [place] [address]Performed By: #### 65305-4 ####[facility] LABCLIA [id number] [place], [place] [address]KIH (Bld) [#/Vol]2.64 10*6/uLLow4.20-6.00[facility] on above:Order Comment: Specimen Type: BLOOD SPECIMENOrdering Facility: [facility] Address:[address] [place], [place] [address]Performed By: #### 08809-2 ####[facility] LABCLIA [id number] [place], [place] [address]ZES (Bld) [#/Vol]4.62 10*3/uL Normal3.70-11.00[facility] on above:Order Comment: Specimen Type: BLOOD SPECIMENOrdering Facility: [facility] Address:[address] [place], [place] [address]Performed By: #### [id number] ####[facility] LABCLIA [id number] [place], [place] [address]AZX CBC W AUTO DIFF BLDon [id number]/100 WBC (Bld)0.6 %[facility] BASOPHILS # BLD AUTO0.03[facility]IL[facility] DIFFERENTIAL METHOD BLDAutoNOMSullivan County Memorial Hospital EOSINOPHIL # BLD AUTO0.25NISaint [facility] Hickman HospitalF LYMPHOCYTES # BLD AUTO0.53LowSaint Luke's Health System MONOCYTES # BLD AUTO0.69NISaint Thomas Hickman HospitalF NEUTROPHILS # BLD AUTO3.11NOSSM Health CareF NRBC # BLD AUTO<0.01NINFMadison Medical CenterF NRBC/100 WBC BLD-RTO0/100 WBCSaint Luke's Health System PLATELET # BLD AERL019KAAJRanken Jordan [facility]ty [facility] PMV BLD AUTO10.5 fL9.0 - 12.7 fLSaint Luke's Health System WBC # BLD AUTO4.62NOCox NorthEosinophils/100 WBC (Bld)5.4 %[facility] CenterErythrocyte distribution width (RBC) [Ratio]15.5 %High 11.5 - 15.0 %[facility] CenterHematocrit (Bld) [Volume fraction]24.3 %Low39.0 - 51.0 %[facility] CenterHemoglobin (Bld) [Mass/Vol]7.5 g/dLLow13.0 - 17.0 g/dLCameron Regional Medical Center GRANULOCYTES # BLD AUTO<0.03NIRegional Hospital [facility] GRANULOCYTES/LEUK NFR BLD AUTO0.2 %[facility] HealthcareInterpretation and review of laboratory resultsAbnormalNorthwest Medical CenterLymphocytes/100 WBC (Bld)11.5 %[facility]izens Memorial HealthcareH (RBC) [Entitic mass]28.4 pg26.0 - 34.0 pgCitizens Memorial HealthcareHC (RBC) [Mass/Vol]30.9 g/dL30.5 - 36.0 g/dLCitizens Memorial HealthcareV (RBC) [Entitic vol]92 fL 80.0 - 100.0 fLNorthwest Medical CenterMonocytes/100 WBC (Bld)14.9 %[facility] Neutrophils/100 WBC (Bld)67.4 %[facility] Medical CenterRBC (Bld) [#/Vol]2.64 10*6/uLLow 4.20 - 6.00 m/uLNorthwest Medical CenterSpecimen Type: BLOOD SPECIMEN [facility] Address: [address] [place] [address] Original Ordering Provider: ROSELYN AMINATAValley Forge Medical Center & HospitalCNOVSPon 47-15-6369UNZTBELdhedtKmhjnehwd Clinic ClevelandCgA SerPl-mCncon 12-09-2024 Chromogranin A [Mass/Vol]296.2 ng/mLHigh<187.0[facility] on above:Order Comment: Specimen Type: BLOOD SPECIMENOrdering Facility: [facility] Address:[address] [place], [place] [address]Result Comment: The Chromogranin A test was performed using the Savorfull CgA II KRYPTOR method. Results obtained with different assay methods or kits cannot be used interchangeably.Performed By: #### 9811-1 ####[facility] LABCLIA [id number] [place] [address] [place] STATES OF AMERICAComprehensive metabolic 2000 panelon 04-60-5395Yggiayz [Mass/Vol]4.0 g/dL Normal3.9-4.9[facility] on above:Order Comment: Specimen Type: BLOOD SPECIMENOrdering Facility: [facility] Address:[address] [place], [place] [address]Performed By: #### 88943-7 ####[facility] LABCLIA [id number] [place] [address] ALP [Catalytic activity/Vol]126 U/EWlco53-337QosrgcltjProMedica Memorial Hospital on above:Order Comment: Specimen Type: BLOOD SPECIMENOrdering Facility: [facility] Address:[address] [place] [address] Performed By: #### 61358-1 ####[facility] LABIA [id number] [place] [id number] [Catalytic activity/Vol]10 U/HMnaghy16-72PxcqppsgbProMedica Memorial Hospital on above:Order Comment: Specimen Type: BLOOD SPECIMENOrdering Facility: [facility] Address:[address] [place], [place] [address]Performed By: #### 29003-6 ####[facility] LABCLIA [id number] [place] [address] Anion gap [Moles/Vol]11 mmol/LNormal8-15[facility] on above:Order Comment: Specimen Type: BLOOD SPECIMENOrdering Facility: [facility] Address:[address] [place], [place] [address]Performed By: #### 83233-7 ####[facility] LABCLIA [id number] [place], [place] [address]FQY [Catalytic activity/Vol]19 U/TUrrznj40-35 [facility] on above:Order Comment: Specimen Type: BLOOD SPECIMENOrdering Facility: [facility] Address:[address] [place], [place] [address]Performed By: #### 39129-2 ####[facility] LABCLIA [id number] [place], [place] [address]Nbdqeauqi [Mass/Vol]0.3 mg/dLNormal0.2-1.3CM[facility] on above:Order Comment: Specimen Type: BLOOD SPECIMENOrdering Facility: [facility] Address:[address] [place], [place] [address]Performed By: #### 57314- 8 ####[facility] LABCLIA [id number] [place], [place] [address]Ojyljqe [Mass/Vol]8.5 mg/dLNormal8.5-10.2CM[facility] on above:Order Comment: Specimen Type: BLOOD SPECIMENOrdering Facility: [facility] Address:[address] [place], [place] [address]Performed By: #### 69852-7 ####[facility] LABCLIA [id number] [place], [place] [address]Scilsfcr [Moles/Vol]111 mmol/L Usda82-537VintbxsiuProMedica Memorial Hospital on above:Order Comment: Specimen Type: BLOOD SPECIMENOrdering Facility: [facility] Address:[address] [place], [place] [address]Performed By: #### 61931-0 ####[facility] LABCLIA [id number] [place] [address] CO2 [Moles/Vol]18 mmol/QVax15-16DqvqgvnrdProMedica Memorial Hospital on above:Order Comment: Specimen Type: BLOOD SPECIMENOrdering Facility: [facility] Address:[address] [place], [place] [address]Performed By: #### 99053- 8 ####[facility] LABCLIA [id number] [place], [place] [address]Scqvvkdacy [Mass/Vol]1.53 mg/dLHigh0.73-1.22[facility] on above:Order Comment: Specimen Type: BLOOD SPECIMENOrdering Facility: [facility] Address:[address] [place], [place] [address]Performed By: #### 01693-0 ####[facility] LABCLIA [id number] [place], [place] [address]Wgfstvznvq and Glomerular filtration rate.predicted panel (S/P/Bld)49 mL/min/1.73m???Low>=60 [facility] on above:Order Comment: Specimen Type: BLOOD SPECIMENOrdering Facility: [facility] Address:[address] [place], [place] [address]Result Comment: Estimated Glomerular Filtration Rate (eGFR) is calculated using the 2020 CKD-EPI creatinine equation. This equation utilizes serum creatinine, sex, and age as parameters. The creatinine assay has traceable calibration to isotope dilution-mass spectrometry. Refer to KDIGO guidelines for clinical interpretation. In patients with unstable renal function, e.g. those with acute kidney injury, the eGFR may not accurately reflect actual GFR.Performed By: #### 90947-9 ####[facility] LABIA [id number] [place], [place] [address]Vssborl [Mass/Vol]120 mg/jHYqme31-76RshhddcljProMedica Memorial Hospital on above:Order Comment: Specimen Type: BLOOD SPECIMENOrdering Facility: [facility] Address:[address] [place], [place] [address]Result Comment: The [place] Diabetes Association (ADA) provides guidance for cutoff values for fast ing glucose and random glucose. The ADA defines fasting as no caloric intake for at least 8 hours. Fasting plasma glucose results between 100 to 125 mg/dL indicate increased risk for diabetes (prediabetes).Fasting plasma glucose results greater than or equal to 126 mg/dL meet the criteria for diagnosis of diabetes. In the absence of unequivocal hyperglycemia, results should be confirmed by repeattesting. In a patient with classic symptoms of hyperglycemia or hyperglycemic crisis, random plasmaglucose results greater than or equal to 200 mg/dL meet the criteria for diagnosis of diabetes.Reference: Standards of Medical Care in Diabetes 2016, [place] Diabetes Association. Diabetes Care. 2016.39(Suppl 1).Performed By: #### 66025-5 ####[facility] LABIA [id number] [place], [place] [address]Iwrwbttrx [Moles/Vol]4.6 mmol/LNormal3.7-5.1CM[facility] on above: Order Comment: Specimen Type: BLOOD SPECIMENOrdering Facility: [facility] Address:[address] [place] [address]Rtbhvkjck By: #### 38020- 8 ####[facility] LABIA [id number] [place], [place] [address]Mfbesqk [Mass/Vol]6.2 g/dLLow6.3-8.0[facility] on above:Order Comment: Specimen Type: BLOOD SPECIMENOrdering Facility: [facility] Address:[address] [place], [place] [address]Performed By: #### 89662-0 ####[facility] LABCLIA [id number] [place], [place] [address]Juebco [Moles/Vol]140 mmol/L Jcglex853-795NgjjivwqzProMedica Memorial Hospital on above:Order Comment: Specimen Type: BLOOD SPECIMENOrdering Facility: [facility] Address:[address] [place], [place] [address]Performed By: #### 78822-5 ####[facility] LABCLIA [id number] [place] [address] Urea nitrogen [Mass/Vol]38 mg/dLHigh9-24[facility] on above:Order Comment: Specimen Type: BLOOD SPECIMENOrdering Facility: [facility] Address:[address] [place], [place] [address]Performed By: #### 95958-7 ####[facility] LABCLIA [id number] [place], [place] [address]Xgktelfq SerPl-mCncon 33-48-5996Mmxfuvdq [Mass/Vol] 19.2 ng/mLLow30.3-565.7CM[facility] on above:Order Comment: Specimen Type: BLOOD SPECIMENOrdering Facility: [facility] Address:[address] [place], [place] [address]Performed By: #### 19297-0, 2131-9, 2275-4, 2283-8 ####[facility] LABCLIA [id number] [facility] [id number] [place] [address] [place] OF AMERICAFolate SerPl-mCncon 81-96-0569Vvsadr [Mass/Vol]11.5 ng/mLNormal>4.7CM[facility] on above:Order Comment: Specimen Type: BLOOD SPECIMENOrdering Facility: [facility] Address:[address] [place] [address] Performed By: #### 72296-0, 2131-9, 2275-4, 2283-8 ####[facility] LABCLIA [id number] [place] [id number] [place] OF AMERICAGastrin SerPl-mCncon 36-87-9408Xddfyxd [Mass/Vol]30.2 pg/mL Normal<115.0[facility] on above:Order Comment: Specimen Type: BLOOD SPECIMENOrdering Facility: [facility] Address:[address] [place], [place] [address]Result Comment: The Gastrin test was performed using the Siemens Immulite chemiluminescent immunometric method. Results obtained with different assay methods or kits cannot be used interchangeably. Performed By: #### 2333-3 ####[facility] LABIA [id number] [place] [address] [place] [employer] binding capacity panelon 95-94-9207Ykcl [Mass/Vol]15 ug/dLLow 41-186[facility] on above:Order Comment: Specimen Type: BLOOD SPECIMENOrdering Facility: [facility] Address:[address] [place], [place] [address]Performed By: #### 57074-2, 2-9, 6-4, 4-8 ####[facility] [id number] [place] [address] [facility] OF AMERICAIron binding capacity [Mass/Vol] 481 ug/sLTzxl942-341PddksbyjbProMedica Memorial Hospital on above:Order Comment: Specimen Type: BLOOD SPECIMENOrdering Facility: [facility] Address:[address] [place], [place] [address]Performed By: #### 01343-6, 2131-9, 6-4, 228-8 ####[facility] [id number] [place] [id number] [place] STATES OF AMERICAIron/TIBC [Molar ratio]3.1 %Low15.0-57.0[facility] on above:Order Comment: Specimen Type: BLOOD SPECIMENOrdering Facility: [facility] Address:[address] [place], [place] [address]Performed By: #### 00745-2, 2132-9, 2276-4, 2284-8 ####[facility] LABCLIA [id number] [place] [address] [facility] MAGRUD[facility] HOSPITALSEROTONIN BLDon 64-30-4928URPKRVLWS ABUNQ9884 ng/qRFhhy41-732YznkblbxkProMedica Memorial Hospital on above:Order Comment: Specimen Type: BLOOD SPECIMENOrdering Facility: [facility] Address:[address] [place], [place] [address]Result Comment: TEST INFORMATION: Serotonin, SerumThis test was developed and its performance characteristicsdetermined by [employer]. It has not been cleared orapproved by the [place] Food and Drug Administration. This test wasperformed in a CLIA certified laboratory and is intended forclinical p urposes.Performed By: [address] [address]Ynvbjzwgxm Director: Chapin Hollis MD, PhDCLIA Number: [id number] Performed By: #### SERTON ####[facility] CENTERIA [id number] [place], [place] [address]YXIWWBRIHJ INTESTINAL POLYPEPTIDE (VIP), PLASMAon 53-38-3538CFGNATTGDF INTESTINAL EYNZSVTIRBC97.0 pg/mLNormal0.0-89.1CM[facility] Hospital on above:Order Comment: Specimen Type: BLOOD SPECIMENOrdering Facility: [facility] Address:[address] [place], [place] [address]Result Comment: This test was developed and its performance characteristicsdetermined by [employer]. It has not been cleared orapproved by the U.S. Food and Drug Administration. This test wasperformed in a CLIA-certified laboratory and is intended forclinical purposes.Performed By: [facility] [address] [place] [address]Fvpjdheqxm Director: Chapin Hollis MD, PhDCLIA Number: [id number] By: #### VIP ####[facility]ENTERCLIA [id number] [place], [place] [address]Gzc B12 SerPl-mCncon 01-05-6780Hhexrpbwp (Vitamin B12) [Mass/Vol]1103 pg/mLNormal 232-1245CWayne HealthCare Main CampusCombeaumont hospital on above:Order Comment: Specimen Type: BLOOD SPECIMENOrdering Facility: [facility] Address:[address] [place], [place] [address]Performed By: #### 81148-2, 2132-9, 2276-4, 2284- 8 ####[facility] LABCLIA [id number] [place] [address] [facility] PET/CT NEUROENDOCRINE WBon 12-08-2024* * *Final Report* * * DATE OF [...] left apical pulmonary nodule. Krenning Score: 4 Splicer Machine Operator: MIKY Transcribe Date/Time: Dec 08 2024 1:14P Dictated by : JESSIE BALDWIN MD This examination was interpreted and the report reviewed and electronically signed by: JESSIE BALDWIN MD on Dec 08 2024 2:12PM EST [id number]^AGFA_IDC^SI^ACNCCFRadiology, Radiologist, - 12/08/2024 * * *Final Report* * * DATE OF EXAM: Dec 08 2024 9:17AM [facility] 0094 - [place] PET/CT NEUROENDOCRINE WB [...] left apical pulmonary nodule. Krenning Score: 4 Splicer Machine Operator: MIKY Transcribe Date/Time: Dec 08 2024 1:14P Dictated by : JESSIE BALDWIN MD This examination was interpreted and the report reviewed and electronically signed by: JESSIE BALDWIN MD on Dec 08 2024 2:12PM EST [id number]^AGFA_IDC^SI^ACN [facility] PET/CT NEUROENDOCRINE WBNormalCKettering Health Hamilton Panel InformationOrdered By: Radiologist Radiology on 58-68-8007TRUBNorthwest Medical Center Work Phone: No Panel Informationon 54-76-8789Eqygotmsx Study observation (narrative)[facility] CenterPET+CT Brain for tau proteinon 12-08-2024 IMPRESSION: Since 08/03/2024, PRIMARY DISEASE SITE: * Unchanged SSTR2 expressing distant ilium lesion ANILA DISEASE: * Unchanged SSTR2 expressing retroperitoneal and mesenteric lymphadenopathy. 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 * Unchanged SSTR2 expressing diffuse pancreatic uptake. ADDITIONAL FINDINGS: * Unchanged mild tracer uptake in left apical pulmonary nodule. Krenning Score: 4 Splicer Machine Operator: MIKY Transcribe Date/Time: Dec 08 2024 1:14P Dictated by : JESSIE BALDWIN MD This examination was interpreted and the report reviewed and electronically signed by: JESSIE BALDWIN MD on Dec 08 2024 2:12PM EST DIVISION OF RADIOLOGY* * *Final Report* * * DATE OF EXAM: Dec 08 2024 9:17AM [facility] 0094 - [place] PET/CT NEUROENDOCRINE WB [...] cm, SUV 30.3, image 291 DIVISION OF RADIOLOGYProvider, [facility] [place] - 12/08/2024 * * *Final Report* * [...] left apical pulmonary nodule. Krenning Score: 4 Splicer Machine Operator: PSCB Transcribe Date/Time: Dec 08 2024 1:14P Dictated by : JESSIE BALDWIN MD This examination was interpreted and the report reviewed and electronically signed by: JESSIE BALDWIN MD on Dec 08 2024 2:12PM EST [facility] W Auto Differential panel (Bld)on 60-49-6117Ibwhfbuoq (Bld) [#/Vol]0.05 10*3/uLNINFCleveland ClinicBasophils/100 WBC (Bld)1 %Mansfield HospitalDifferential cell count method Nom (Bld)AutoCleveland ClinicEosinophils (Bld) [#/Vol]0.14 10*3/uLNINFMansfield HospitalEosinophils/100 WBC (Bld)2.8 % [facility]field HospitalErythrocyte distribution width (RBC) [Ratio]14.4 %11.5 - 15.0 % [facility] HospitalHematocrit (Bld) [Volume fraction]32.6 %Low39.0 - 51.0 % [facility] HospitalHemoglobin (Bld) [Mass/Vol]10.2 g/dLLow13.0 - 17.0 g/dLMansfield HospitalImmature granulocytes (Bld) [#/Vol]NINFCleveland ClinicImmature granulocytes/100 WBC (Bld)0.4 %[facility]field HospitalLymphocytes (Bld) [#/Vol]0.34 10*3/uLLowMansfield HospitalLymphocytes/100 WBC (Bld)6.7 %CentervilleH (RBC) [Entitic mass]28.7 pg26.0 - 34.0 pgClevelEssentia HealthHC (RBC) [Mass/Vol] 31.3 g/dL30.5 - 36.0 g/dLCentervilleV (RBC) [Entitic vol]91.6 fL80.0 - 100.0 fLCleveland ClinicMonocytes (Bld) [#/Vol]0.67 10*3/uLNIOhioHealth Van Wert Hospital Monocytes/100 WBC (Bld)13.2 %M[facility]field HospitalNeutrophils (Bld) [#/Vol]3.84 10*3/uLMansfield HospitalNeutrophils/100 WBC (Bld)75.9 %M[facility]field HospitalNucleated RBC (Bld) [#/Vol]NINFCleveland ClinicNucleated RBC/100 WBC (Bld) [Ratio]0 %/100 WBCMansfield HospitalPlatelet mean volume (Bld) [Entitic vol]10.1 fL9.0 - 12.7 fL Coolville ClinicPlatelets (Bld) [#/Vol]287 10*3/uLCoolville ClinicRBC (Bld) [#/Vol]3.56 10*6/uLLow4.20 - 6.00 m/[facility] HospitalWBC (Bld) [#/Vol]5.06 10*3/[facility] HospitalBasophils (Bld) [#/Vol]0.05 10*3/uLNormal<0.11CM[facility] on above:Order Comment: Specimen Type: BLOOD SPECIMENOrdering Facility: [facility] Address:[address] [place], [place] [address]Performed By: #### 55712-4, 03883-1 ####[facility] LABCLIA [id number] [place] [address] Basophils/100 WBC (Bld)1.0 %NormalUniversity Hospitals Samaritan Medical CenterComment on above: Order Comment: Specimen Type: BLOOD SPECIMENOrdering Facility: [facility] Address:[address] [place], [place] [address]Performed By: #### 19362- 8, 23926-1 ####[facility] LABCLIA [id number] [place], [place] [address]Iicwtpvvbgxb cell count method Nom (Bld)AutoNormal [facility] on above:Order Comment: Specimen Type: BLOOD SPECIMENOrdering Facility: [facility] Address:[address] [place], [place] [address]Performed By: #### 69249-4, 90246-7 ####[facility] LABCLIA [id number] [place] [address] Eosinophils (Bld) [#/Vol]0.14 10*3/uLNormal<0.46[facility] Comment on above:Order Comment: Specimen Type: BLOOD SPECIMENOrdering Facility: [facility] Address:[address] [place] [address] Performed By: #### 66171-2, 62567-7 ####[facility] LABCLIA [id number] [place], [place] [address]Hjnebcjzrds/100 WBC (Bld)2.8 %NormalProMedica Memorial Hospital on above:Order Comment: Specimen Type: BLOOD SPECIMENOrdering Facility: [facility] Address:[address] [place], [place] [address]Performed By: #### 29996-8, 11930-1 ####[facility] LABIA [id number] [place], [place] [address]Floelpvqtyd distribution width (RBC) [Ratio]14.4 %Normal 11.5-15.0[facility] on above:Order Comment: Specimen Type: BLOOD SPECIMENOrdering Facility: [facility] Address:[address] [place], [place] [address]Performed By: #### 56335-5, 05392-4 ####[facility]PITALIA [id number] [place], [place] [address]Slsbmlivzu (Bld) [Volume fraction]32.6 %Low39.0-51.0 [facility] on above:Order Comment: Specimen Type: BLOOD SPECIMENOrdering Facility: [facility] Address:[address] [place], [place] [address]Performed By: #### 02047-6, 21401-1 ####[facility] LABIA [id number] [place] [address] Hemoglobin (Bld) [Mass/Vol]10.2 g/dLLow13.0-17.0[facility] Comment on above:Order Comment: Specimen Type: BLOOD SPECIMENOrdering Facility: [facility] Address:[address] [place] [address] Performed By: #### 32978-4, 18035-3 ####[facility] LABIA [id number] [place], [place] [address]Aqtbnjmn granulocytes (Bld) [#/Vol]10*3/uLNormal<0.10[facility] on above:Order Comment: Specimen Type: BLOOD SPECIMENOrdering Facility: [facility] Address:[address] [place], [place] [address]Performed By: #### 33021- 8, 29785-4 ####[facility] LABCLIA [id number] [place], [place] [address]Lvavepbp granulocytes/100 WBC (Bld)0.4 %Normal [facility] on above:Order Comment: Specimen Type: BLOOD SPECIMENOrdering Facility: [facility] Address:[address] [place], [place] [address]Performed By: #### 57608-3, 50052-0 ####[facility] LABCLIA [id number] [place] [address] Lymphocytes (Bld) [#/Vol]0.34 10*3/uLLow1.00-4.00[facility] Comment on above:Order Comment: Specimen Type: BLOOD SPECIMENOrdering Facility: [facility] Address:[address] [place] [address] Performed By: #### 64341-6, 47040-7 ####[facility] LABCLIA [id number] [place], [place] [address]Grfnqanilqf/100 WBC (Bld)6.7 %NormalProMedica Memorial Hospital on above:Order Comment: Specimen Type: BLOOD SPECIMENOrdering Facility: [facility] Address:[address] [place], [place] [address]Performed By: #### 31739-2, 75127-0 ####[facility] LABCLIA [id number] [place], [place] [address]PIE (RBC) [Entitic mass]28.7 sbLpkldm43.0-34.0[facility] on above:Order Comment: Specimen Type: BLOOD SPECIMENOrdering Facility: [facility] Address:[address] [place], [place] [address]Performed By: #### 22984-9, 30770-3 ####[facility] LABCLIA [id number] [place], [place] [address]UUVS (RBC) [Mass/Vol]31.3 g/hXFpzwbf56.5-36.0[facility] on above:Order Comment: Specimen Type: BLOOD SPECIMENOrdering Facility: [facility] Address:[address] [place], [place] [address]Performed By: #### 60789-9, 81715-3 ####[facility] LABCLIA [id number] [place], [place] [address]YWV (RBC) [Entitic vol]91.6 fLNormal 80.0-100.0[facility] on above:Order Comment: Specimen Type: BLOOD SPECIMENOrdering Facility: [facility] Address:[address] [place], [place] [address]Performed By: #### 33888-4, 79467-5 ####[facility] LABCLIA [id number] [place], [place] [address]Rawfqweja (Bld) [#/Vol]0.67 10*3/uLNormal<0.87[facility] on above:Order Comment: Specimen Type: BLOOD SPECIMENOrdering Facility: [facility] Address:[address] [place], [place] [address]Performed By: #### 68783-6, 80086-6 ####[facility] LABCLIA [id number] [place] [address] Monocytes/100 WBC (Bld)13.2 %NormalProMedica Memorial Hospital on above: Order Comment: Specimen Type: BLOOD SPECIMENOrdering Facility: [facility] Address:[address] [place], [place] [address]Performed By: #### 10428- 8, 72230-2 ####[facility] LABCLIA [id number] [place], [place] [address]Cvxflykjaim (Bld) [#/Vol]3.84 10*3/uLNormal 1.45-7.50[facility] on above:Order Comment: Specimen Type: BLOOD SPECIMENOrdering Facility: [facility] Address:[address] [place], [place] [address]Performed By: #### 30804-7, 75056-8 ####[facility] LABCLIA [id number] [place], [place] [address]Ynmigiuhppe/100 WBC (Bld)75.9 %NormalProMedica Memorial Hospital on above:Order Comment: Specimen Type: BLOOD SPECIMENOrdering Facility: [facility] Address:[address] [place], [place] [address]Performed By: #### 54788-3, 07952-0 ####[facility] LABIA [id number] [place], [place] [address]Zkscedgno RBC (Bld) [#/Vol]10*3/uLNormal<0.01[facility] on above:Order Comment: Specimen Type: BLOOD SPECIMENOrdering Facility: [facility] Address:[address] [place], [place] [address]Performed By: #### 50284- 8, 43726-5 ####[facility] LABIA [id number] [place], [place] [address]Lkvqxjyaf RBC/100 WBC (Bld) [Ratio]0.0 /100 WBC NormalProMedica Memorial Hospital on above:Order Comment: Specimen Type: BLOOD SPECIMENOrdering Facility: [facility] Address:[address] [place], [place] [address]Performed By: #### 51521-6, 79708-8 ####[facility] LABIA [id number] [place], [place] [address]Dmogdcet mean volume (Bld) [Entitic vol]10.1 fLNormal9.0-12.7CM[facility] on above:Order Comment: Specimen Type: BLOOD SPECIMENOrdering Facility: [facility] Address:[address] [place], [place] [address]Performed By: #### 44080-7, 36602-3 ####[facility] LABCLIA [id number] [place] [address] Platelets (Bld) [#/Vol]287 10*3/mTSemfxx459-005UorgwcebaProMedica Memorial Hospital on above:Order Comment: Specimen Type: BLOOD SPECIMENOrdering Facility: [facility] Address:[address] [place] [address] Performed By: #### 37874-9, 54724-5 ####[facility] LABCLIA [id number] [place], [place] [address]INZ (Bld) [#/Vol]3.56 10*6/uLLow4.20-6.00[facility] on above:Order Comment: Specimen Type: BLOOD SPECIMENOrdering Facility: [facility] Address:[address] [place], [place] [address]Performed By: #### 68355-9, 24036-3 ####[facility] LABIA [id number] [place], [place] [address]QFT (Bld) [#/Vol]5.06 10*3/uLNormal3.70-11.00[facility] on above:Order Comment: Specimen Type: BLOOD SPECIMENOrdering Facility: [facility] Address:[address] [place], [place] [address]Performed By: #### 82555-6, 17477-4 ####[facility] LABIA [id number] [place], [place] [address]VNJKRHgl [id number] Clinic ClevelandCNPNon [id number] [facility] metabolic 2000 panelOrdered By: Xin Camejo on [id number] [Mass/Vol]4.3 g/dL3.9 - 4.9 g/dLCoolville ClinicALP [Catalytic activity/Vol]176 U/LHigh38 - 113 U/LCleveland ClinicALT [Catalytic activity/Vol]15 U/L10 - 54 U/LCleveland ClinicAnion gap [Moles/Vol]15 mmol/L8 - 15 mmol/LCleveland ClinicAST [Catalytic activity/Vol]26 U/L14 - 40 U/LCleveland ClinicBilirubin [Mass/Vol]0.5 mg/dL0.2 - 1.3 mg/dLClejoint township district memorial hospital ClinicCalcium [Mass/Vol]8.9 mg/dL8.5 - 10.2 mg/dLClejoint township district memorial hospital ClinicChloride [Moles/Vol]111 mmol/LHigh98 - 107 mmol/LCleveland ClinicCO2 [Moles/Vol]17 mmol/LLow22 - 30 mmol/LCleveland ClinicCreatinine [Mass/Vol]1.07 mg/dL0.73 - 1.22 mg/dLCoolville ClinicGFR/1.73 sq M.predicted among non-blacks MDRD (S/P/Bld) [Vol rate/Area]75 mL/min/{1.73_m2}- PINMercy Health Springfield Regional Medical CenterComment on above:Estimated Glomerular Filtration Rate (eGFR) is calculated using the 2020 CKD-EPI creatinine equation. This equation utilizes serum creatinine, sex, and age as parameters. The creatinine assay has traceable calibration to isotope dilution-mass spectrometry. Refer to KDIGO guidelines for clinical interpretation. In patients with unstable renal function, e.g. those with acute kidney injury, the eGFRmay not accurately reflect actual GFR.Glucose [Mass/Vol]98 mg/dL74 - 99 mg/dL [facility] on above:The [place] Diabetes Association (ADA) provides guidance for cutoff values for fasting glucose andrandom glucose. The ADA defines fasting as no caloric intake for at least 8 hours. Fasting plasma gl ucose results between 100 to 125 mg/dL indicate [...] Standards of Medical Care in Diabetes 2016, [place] [employer]. Diabetes Care. 2016.39(Suppl 1). Interpretation and review of laboratory resultsAbnormalCleveland ClinicPotassium [Moles/Vol]4.4 mmol/L3.7 - 5.1 mmol/LCsalem city hospital ClinicProtein [Mass/Vol]7.1 g/dL 6.3 - 8.0 g/dLMemorial Hospitalodium [Moles/Vol]143 mmol/L136 - 144 mmol/L [facility] HospitalUrea nitrogen [Mass/Vol]25 mg/dLHigh9 - 24 mg/dLOhio Valley Hospitalprehensive metabolic 2000 panelon 29-39-3299Nprgrdi [Mass/Vol]4.3 g/dLNormal3.9-4.9CM[facility] on above:Order Comment: Specimen Type: BLOOD SPECIMENOrdering Facility: [facility] Address:[address] [place], [place] [address]Performed By: #### 33822- 8 ####[facility] LABCLIA [id number] [place], [place] [address]HBT [Catalytic activity/Vol]176 U/QGzcp65-779IlkdvruojProMedica Memorial Hospital on above:Order Comment: Specimen Type: BLOOD SPECIMENOrdering Facility: [facility] Address:[address] [place], [place] [address]Performed By: #### 34684-3 ####[facility] LABCLIA [id number] [place], [place] [address]JAI [Catalytic activity/Vol]15 U/RWanjuc79-35ZhzrltpqxProMedica Memorial Hospital on above:Order Comment: Specimen Type: BLOOD SPECIMENOrdering Facility: [facility] Address:[address] [place], [place] [address]Performed By: #### 87746- 8 ####[facility] LABCLIA [id number] [place], [place] [address]Morrq gap [Moles/Vol]15 mmol/LNormal8-15[facility] on above:Order Comment: Specimen Type: BLOOD SPECIMENOrdering Facility: [facility] Address:[address] [place], [place] [address]Performed By: #### 92105-6 ####[facility] LABCLIA [id number] [place], [place] [address]OFY [Catalytic activity/Vol]26 U/SHquzkn40-75UbvexqzwiProMedica Memorial Hospital on above:Order Comment: Specimen Type: BLOOD SPECIMENOrdering Facility: [facility] Address:[address] [place], [place] [address]Performed By: #### 70989-2 ####[facility] LABCLIA [id number] [place] [address] Bilirubin [Mass/Vol]0.5 mg/dLNormal0.2-1.3CM[facility] on above:Order Comment: Specimen Type: BLOOD SPECIMENOrdering Facility: [facility] Address:[address] [place], [place] [address]Performed By: #### 41672-4 ####[facility] LABIA [id number] [place], [place] [address]Adgdiyf [Mass/Vol]8.9 mg/dLNormal8.5-10.2CM[facility] on above:Order Comment: Specimen Type: BLOOD SPECIMENOrdering Facility: [facility] Address:[address] [place], [place] [address]Performed By: #### 16410-1 ####[facility] LABCLIA [id number] [place], [place] [address]Zdrhmbif [Moles/Vol]111 mmol/UBylt36-935YwhqzwkpjProMedica Memorial Hospital on above:Order Comment: Specimen Type: BLOOD SPECIMENOrdering Facility: [facility] Address:[address] [place], [place] [address]Performed By: #### 24801- 8 ####[facility] LABCLIA [id number] [facility] [place], [place] [address]QZ0 [Moles/Vol]17 mmol/TDix95-65LbzuffgfxProMedica Memorial Hospital on above:Order Comment: Specimen Type: BLOOD SPECIMENOrdering Facility: [facility] Address:[address] [place], [place] [address]Yvhkylkmt By: #### 78074-3 ####[facility] LABCLIA [id number] [place], [place] [address]Isbdybjwsj [Mass/Vol]1.07 mg/dL Normal0.73-1.22[facility] on above:Order Comment: Specimen Type: BLOOD SPECIMENOrdering Facility: [facility] Address:[address] [place], [place] [address]Performed By: #### 32931-7 ####[facility] LABCLIA [id number] [place], [place] [address]Ffymrtccuh and Glomerular filtration rate.predicted panel (S/P/Bld)75 mL/min/1.73m???Normal>=60[facility] on above:Order Comment: Specimen Type: BLOOD SPECIMENOrdering Facility: [facility] Address:[address] [place], [place] [address]Result Comment: Estimated Glomerular Filtration Rate (eGFR) is calculated using the 2020 CKD-EPI creatinine equation. This equation utilizes serum creatinine, sex, and age as parameters. The creatinine assay has traceable calibration to isotope dilution- mass spectrometry. Refer to KDIGO guidelines for clinical interpretation. In patients with unstable renal function, e.g. those with acute kidney injury, the eGFR may not accurately reflect actual GFR.Performed By: #### 04383-4 ####[facility] LABIA [id number] [place], [place] [address]Ayquzdd [Mass/Vol]98 mg/rAGoupbb73-18HcxbmlzjeProMedica Memorial Hospital on above:Order Comment: Specimen Type: BLOOD SPECIMENOrdering Facility: [facility] Address:[address] [place], [place] [address]Result Comment: The [place] Diabetes Association (ADA) provides guidance for cutoff values for fasting glucose and random glucose. The ADA defines fasting as no caloric intake for at least 8 hours. Fasting plasma glucose results between 100 to 125 mg/dL indicate increased risk for diabetes (prediab etes).Fasting plasma glucose results greater than or equal to 126 mg/dL meet the criteria for diagnosis of diabetes. In the absence of unequivocal hyperglycemia, results should be confirmed by repeattesting. In a patient with classic symptoms of hyperglycemia or hyperglycemic crisis, random plasmaglucose results greater than or equal to 200 mg/dL meet the criteria for diagnosis of diabetes.Reference: Standards of Medical Care in Diabetes 2016, [place] Diabetes Association. Diabetes Care. 2016.39(Suppl 1).Performed By: #### 37640-8 ####[facility] LABCLIA [id number] [place], [place] [address]Llebuawoe [Moles/Vol]4.4 mmol/LNormal3.7-5.1CM[facility] on above:Order Comment: Specimen Type: BLOOD SPECIMENOrdering Facility: [facility] Address:[address] [place], [place] [address]Performed By: #### 48430-8 ####[facility] LABIA [id number] [place], [place] [address]Nnaebai [Mass/Vol]7.1 g/dLNormal6.3-8.0[facility] on above:Order Comment: Specimen Type: BLOOD SPECIMENOrdering Facility: [facility] Address:[address] [place], [place] [address]Performed By: #### 88700- 8 ####[facility] LABIA [id number] [place], [place] [address]Rwbvwh [Moles/Vol]143 mmol/GLeasmg588-095FzypuvpuvProMedica Memorial Hospital on above:Order Comment: Specimen Type: BLOOD SPECIMENOrdering Facility: [facility] Address:[address] [place], [place] [address]Performed By: #### 23085-5 ####[facility] LABIA [id number] [place], [place] [address]Evrz nitrogen [Mass/Vol]25 mg/dLHigh9-24[facility] on above:Order Comment: Specimen Type: BLOOD SPECIMENOrdering Facility: [facility] Address:[address] [place], [place] [address]Performed By: #### 75541-6 ####[facility] LABCLIA [id number] [place] [address] FERRITINon 74-69-0991Dzducgtg [Mass/Vol]90.1 ng/mL30.3 - 565.7 ng/mLCleveland Regions HospitalFOLATE, SERUMon 31-66-6416Cjkpvv [Mass/Vol]7.2 ng/mL4.7 - PINF ng/mL Mansfield HospitalFerritin SerPl-mCncon 23-97-0381Egfzbtls [Mass/Vol]90.1 ng/mL Qxlgot19.3-565.7ClevelKettering Health Main Campus on above:Order Comment: Specimen Type: BLOOD SPECIMENOrdering Facility: [facility] Address:[address] [place], [place] [address]Performed By: #### 65504-8, 9, 2275-, 8 ####[facility] LABCLIA [id number] [place] [address] [place] AMERICAFolate SerPl-mCncon 01-73-6286Xxqwah [Mass/Vol]7.2 ng/mLNormal>4.7ClevelKettering Health Main Campus on above:Order Comment: Specimen Type: BLOOD SPECIMENOrdering Facility: [facility] Address:[address] [place] [address] Performed By: #### 37075-7, 9, 2275-11, 8 ####[facility] LABIA [id number] [place] [address] [place] AMERICAIron and Iron binding capacity panelon 11-94-9034Acidntriodjamh and review of laboratory resultsAbnormalCleveland ClinicIron [Mass/Vol]225 ug/lYRbxb06 - 186 ug/dLCleMedina HospitalIron binding capacity [Mass/Vol]509 ug/dL Vuyq563 - 386 ug/dLCleMedina HospitalIron/TIBC [Molar ratio]44.2 %15.0 - 57.0 % [facility]-Patterson Medical CenterIron [Mass/Vol]225 ug/jPQige84-921AqmsmunmdProMedica Memorial Hospital on above:Order Comment: Specimen Type: BLOOD SPECIMENOrdering Facility: [facility] Address:[address] [place], [place] [address]Performed By: #### 54532-9, 9, 4, 8 ####[facility] LABCLIA [id number] [address] [address] [facility] OF AMERICAIron binding capacity [Mass/Vol] 509 ug/rVGthm452-443TtjbifzlcProMedica Memorial Hospital on above:Order Comment: Specimen Type: BLOOD SPECIMENOrdering Facility: [facility] Address:[address] [place], [place] [address]Performed By: #### 03505-9, 9, 2275-11, 8 ####[facility] LABCLIA [id number] [place] [id number] [place] STATES OF AMERICAIron/TIBC [Molar ratio]44.2 %Cgicjd08.0-57.0[facility] on above:Order Comment: Specimen Type: BLOOD SPECIMENOrdering Facility: [facility] Address:[address] [place], [place] [address]Performed By: #### 95315- 8, 9, 2275-11, 8 ####[facility] LABCLIA [id number] [address] [place] [facility] Panel Informationon 32-31-4796Wbqwcyveufosta and review of laboratory resultsNormal [facility]terson Medical CenterInterpretation and review of laboratory results AbnormalWright-Patterson Medical CenterRETICULOCYTE COUNTon 11-17-2024 Reticulocytes (Bld) [#/Vol]0.086 10*3/uLCoolville ClinicRetics #on 11-17-2024 Reticulocytes (Bld) [#/Vol]0.28940 10*3/uLNormal0.018-0.100[facility] on above:Order Comment: Specimen Type: BLOOD SPECIMENOrdering Facility: [facility] Address:[address] [place], [place] [address]Performed By: #### 12492-3, 86127-0 ####[facility] LABCLIA [id number] [place], [place] [address]Yfrwcngpqhbla (Bld) [#/Vol]on 85-82-8179Bkbedhhesavri/100 RBC (Bld)2.4 %High0.4 - 2.0 %Mansfield HospitalReticulocytes/100 RBC (Bld)2.4 %High0.4-2.0[facility] Comment on above:Order Comment: Specimen Type: BLOOD SPECIMENOrdering Facility: [facility] Address:[address] [place] [address] Performed By: #### 02452-6, 19547-1 ####[facility] LABCLIA [id number] [place], [place] [address]WYPVLNK B12on 52-81-6838Uwejpamdb (Vitamin B12) [Mass/Vol]1039 pg/mL232 - 1245 pg/mLClevelUpper Valley Medical CenterVit B12 SerPl-mCncon 53-10-1909Xcmjjoraw (Vitamin B12) [Mass/Vol]1039 pg/gSKtwade737-3233Dortehuea Clinic ClevelandCombeaumont hospital on above:Order Comment: Specimen Type: BLOOD SPECIMENOrdering Facility: [facility] Address:[address] [place], [place] [address]Performed By: #### 58933-3, 2132-9, 2276-4, 2284-8 ####[facility] LABCLIA [id number] [place] [id number] [facility] W Auto Differential panel (Bld)on 48-47-5663Btmcdlxjp (Bld) [#/Vol]10*3/uLNormal<0.11 [facility] on above:Order Comment: Specimen Type: BLOOD SPECIMENOrdering Facility: [facility] Address:[address] [place], [place] [address]Performed By: #### 48624-6 ####[facility] LABCLIA [id number] [place], [place] [address]Lxcerwbbi/100 WBC (Bld)0.4 %[facility] on above:Order Comment: Specimen Type: BLOOD SPECIMENOrdering Facility: [facility] Address:[address] [place], [place] [address]Performed By: #### 28111-8 ####[facility] LABCLIA [id number] [place], [place] [address]Fevpaeebcjjx cell count method Nom (Bld)AutoNormal [facility] on above:Order Comment: Specimen Type: BLOOD SPECIMENOrdering Facility: [facility] Address:[address] [place], [place] [address]Performed By: #### 60322-3 ####[facility] LABCLIA [id number] [place], [place] [address]Dpibkcdaznn (Bld) [#/Vol]0.21 10*3/uLNormal<0.46[facility] on above: Order Comment: Specimen Type: BLOOD SPECIMENOrdering Facility: [facility] Address:[address] [place], [place] [address]Performed By: #### 32641- 8 ####[facility] LABCLIA [id number] [place], [place] [address]Nmtqllaprnj/100 WBC (Bld)4.5 %NormalProMedica Memorial Hospital on above:Order Comment: Specimen Type: BLOOD SPECIMENOrdering Facility: [facility] Address:[address] [place], [place] [address]Performed By: #### 93913-9 ####[facility] LABIA [id number] [place], [place] [address]Mtuxrgvvdnk distribution width (RBC) [Ratio]15.4 %High11.5-15.0[facility] on above:Order Comment: Specimen Type: BLOOD SPECIMENOrdering Facility: [facility] Address:[address] [place], [place] [address]Performed By: #### 88626- 8 ####[facility] LABCLIA [id number] [place], [place] [address]Ubsrvjvynw (Bld) [Volume fraction]26.0 %Low39.0-51.0 [facility] on above:Order Comment: Specimen Type: BLOOD SPECIMENOrdering Facility: [facility] Address:[address] [place], [place] [address]Performed By: #### 10150-3 ####[facility] LABIA [id number] [place], [place] [address]Pgsjicydfy (Bld) [Mass/Vol]8.3 g/dLLow13.0-17.0[facility] on above:Order Comment: Specimen Type: BLOOD SPECIMENOrdering Facility: [facility] Address:[address] [place], [place] [address]Performed By: #### 63588- 8 ####[facility] LABCLIA [id number] [place], [place] [address]Wojfbwwi granulocytes (Bld) [#/Vol]0.04 10*3/uLNormal <0.10[facility] on above:Order Comment: Specimen Type: BLOOD SPECIMENOrdering Facility: [facility] Address:[address] [place], [place] [address]Performed By: #### 77822-4 ####[facility] LABIA [id number] [place], [place] [address]Oealeuko granulocytes/100 WBC (Bld)0.9 %NormalProMedica Memorial Hospital on above: Order Comment: Specimen Type: BLOOD SPECIMENOrdering Facility: [facility] Address:[address] [place], [place] [address]Performed By: #### 49806- 8 ####[facility] LABCLIA [id number] [place], [place] [address]Xdrpdbcdzgs (Bld) [#/Vol]0.56 10*3/uLLow1.00-4.00 [facility] on above:Order Comment: Specimen Type: BLOOD SPECIMENOrdering Facility: [facility] Address:[address] [place], [place] [address]Performed By: #### 75349-9 ####[facility] LABCLIA [id number] [place], [place] [address]Xdijqkwdkfl/100 WBC (Bld)12.0 %NormalProMedica Memorial Hospital on above:Order Comment: Specimen Type: BLOOD SPECIMENOrdering Facility: [facility] Address:[address] [place], [place] [address]Performed By: #### 60824-4 ####[facility] LABCLIA [id number] [place], [place] [address]UJF (RBC) [Entitic mass]29.7 nfXuzkdc62.0-34.0[facility] on above:Order Comment: Specimen Type: BLOOD SPECIMENOrdering Facility: [facility] Address:[address] [place], [place] [address]Performed By: #### 67661-3 ####[facility] LABCLIA [id number] [place], [place] [address]NPNZ (RBC) [Mass/Vol]31.9 g/sIXrqrao47.5-36.0[facility] on above: Order Comment: Specimen Type: BLOOD SPECIMENOrdering Facility: [facility] Address:[address] [place], [place] [address]Performed By: #### 12999- 8 ####[facility] LABIA [id number] [place], [place] [address]DOS (RBC) [Entitic vol]93.2 yISchmil48.0-100.0[facility] on above:Order Comment: Specimen Type: BLOOD SPECIMENOrdering Facility: [facility] Address:[address] [place], [place] [address]Performed By: #### 03175-6 ####[facility] LABCLIA [id number] [place], [place] [address]Rxzyejjnj (Bld) [#/Vol]0.90 10*3/uLHigh<0.87[facility] on above:Order Comment: Specimen Type: BLOOD SPECIMENOrdering Facility: [facility] Address:[address] [place], [place] [address]Performed By: #### 17818- 8 ####[facility] LABCLIA [id number] [place], [place] [address]Fuuimvexv/100 WBC (Bld)19.3 %NormalProMedica Memorial Hospital on above:Order Comment: Specimen Type: BLOOD SPECIMENOrdering Facility: [facility] Address:[address] [place], [place] [address]Performed By: #### 08730-2 ####[facility] LABCLIA [id number] [place], [place] [address]Bbqykeyfmvh (Bld) [#/Vol]2.94 10*3/uLNormal1.45-7.50[facility] on above:Order Comment: Specimen Type: BLOOD SPECIMENOrdering Facility: [facility] Address:[address] [place], [place] [address]Performed By: #### 15404-9 ####[facility] LABCLIA [id number] [place], [place] [address]Ndijfgvtsdz/100 WBC (Bld)62.9 %NormalProMedica Memorial Hospital on above:Order Comment: Specimen Type: BLOOD SPECIMENOrdering Facility: [facility] Address:[address] [place], [place] [address]Performed By: #### 92058-1 ####[facility] LABCLIA [id number] [place], [place] [address]Xnhwfucgx RBC (Bld) [#/Vol] 10*3/uLNormal<0.01[facility] on above:Order Comment: Specimen Type: BLOOD SPECIMENOrdering Facility: [facility] Address:[address] [place], [place] [address]Performed By: #### 98640-4 ####[facility] LABCLIA [id number] [place], [place] [address]Olpdpgjbk RBC/100 WBC (Bld) [Ratio]0.0 /100 WBCNormal [facility] on above:Order Comment: Specimen Type: BLOOD SPECIMENOrdering Facility: [facility] Address:[address] [place], [place] [address]Performed By: #### 62042-8 ####[facility] LABIA [id number] [place], [place] [address]Elglkrad mean volume (Bld) [Entitic vol]10.9 fLNormal9.0-12.7CM[facility] on above:Order Comment: Specimen Type: BLOOD SPECIMENOrdering Facility: [facility] Address:[address] [place] [address] Performed By: #### 79161-1 ####[facility] LABIA [id number] [place], [place] [address]Pqaubrcoe (Bld) [#/Vol]287 10*3/rRYjyioy339-996OhmpcivflProMedica Memorial Hospital on above:Order Comment: Specimen Type: BLOOD SPECIMENOrdering Facility: [facility] Address:[address] [place], [place] [address]Performed By: #### 52860-8 ####[facility] LABCLIA [id number] [place], [place] [address]VCD (Bld) [#/Vol]2.79 10*6/uLLow4.20-6.00[facility] on above:Order Comment: Specimen Type: BLOOD SPECIMENOrdering Facility: [facility] Address:[address] [place], [place] [address]Performed By: #### 49306-4 ####[facility] LABCLIA [id number] [place], [place] [address]YUA (Bld) [#/Vol]4.67 10*3/uL Normal3.70-11.00[facility] on above:Order Comment: Specimen Type: BLOOD SPECIMENOrdering Facility: [facility] Address:[address] [place], [place] [address]Performed By: #### 93354-3 ####[facility] LABIA [id number] [place], [place] [address]DlK SerPl-mCncon 51-61-3624Jdyizcfzhfrf A [Mass/Vol]424.1 ng/mLHigh<187.0[facility] on above:Order Comment: Specimen Type: BLOOD SPECIMENOrdering Facility: [facility] Address:[address] [place], [place] [address]Result Comment: The Chromogranin A test was performed using the Savorfull CgA II KRYPTOR method. Results obtained with different assay methods or kits cannot be used interchangeably.Performed By: #### 9811-1 ####[facility] LABCLIA [id number] [address] OF AMERICAComprehensive metabolic 2000 panelon 32-62-7141Ppepyxp [Mass/Vol]3.5 g/dLLow3.9-4.9CM[facility] on above:Order Comment: Specimen Type: BLOOD SPECIMENOrdering Facility: [facility] Address:[address] [place], [place] [address]Performed By: #### 04971-0 ####[facility] LABIA [id number] [place], [place] [address]ZGQ [Catalytic activity/Vol]97 U/GTzdbju54-092ShimtmgsyProMedica Memorial Hospital on above:Order Comment: Specimen Type: BLOOD SPECIMENOrdering Facility: [facility] Address:[address] [place], [place] [address]Performed By: #### 64129-3 ####[facility] LABCLIA [id number] [place] [address]UMQ [Catalytic activity/Vol]15 U/GLxbfex33-03SvzizgehdProMedica Memorial Hospital on above:Order Comment: Specimen Type: BLOOD SPECIMENOrdering Facility: [facility] Address:[address] [place], [place] [address]Performed By: #### 88167-2 ####[facility] LABCLIA [id number] [facility]ITALMARCO AHON[facility] OSBORN MEDICAL CENTERMANOLOSURREY, [place] [address]Vxhji gap [Moles/Vol]8 mmol/LNormal8-15[facility] on above:Order Comment: Specimen Type: BLOOD SPECIMENOrdering Facility: [facility] Address:[address] [place], [place] [address]Performed By: #### 88227- 8 ####[facility] LABCLIA [id number] [place] [address]XAV [Catalytic activity/Vol]19 U/MEieyqc09-97OkxqkrqklProMedica Memorial Hospital on above:Order Comment: Specimen Type: BLOOD SPECIMENOrdering Facility: [facility] Address:[address] [place], [place] [address]Performed By: #### 52635-2 ####[facility] LABCLIA [id number] [facility] HOSPITALMARCO [place], [place] [address]Ccnfxbqrt [Mass/Vol]0.3 mg/dLNormal0.2-1.3CM[facility] on above:Order Comment: Specimen Type: BLOOD SPECIMENOrdering Facility: [facility] Address:[address] [place], [place] [address]Performed By: #### 79174- 8 ####[facility] LABCLIA [id number] [place], [place] [address]Dqlieqy [Mass/Vol]7.9 mg/dLLow8.5-10.2CM[facility] on above:Order Comment: Specimen Type: BLOOD SPECIMENOrdering Facility: [facility] Address:[address] [place], [place] [address]Performed By: #### 55646-4 ####[facility] LABCLIA [id number] [place], [place] [address]Noxigifh [Moles/Vol]109 mmol/L Xfcy52-543OtimvxrjkProMedica Memorial Hospital on above:Order Comment: Specimen Type: BLOOD SPECIMENOrdering Facility: [facility] Address:[address] [place], [place] [address]Performed By: #### 67823-9 ####[facility] LABCLIA [id number] [place] [address] CO2 [Moles/Vol]21 mmol/CEmf55-55QtpcwdixtProMedica Memorial Hospital on above:Order Comment: Specimen Type: BLOOD SPECIMENOrdering Facility: [facility] Address:[address] [place], [place] [address]Performed By: #### 23614- 8 ####[facility] LABCLIA [id number] [place], [place] [address]Xtdhirhwis [Mass/Vol]1.40 mg/dLHigh0.73-1.22[facility] on above:Order Comment: Specimen Type: BLOOD SPECIMENOrdering Facility: [facility] Address:[address] [place], [place] [address]Performed By: #### 86050-9 ####[facility] LABIA [id number] [place], [place] [address]Fjuuaqwiih and Glomerular filtration rate.predicted panel (S/P/Bld)54 mL/min/1.73m???Low>=60 [facility] on above:Order Comment: Specimen Type: BLOOD SPECIMENOrdering Facility: [facility] Address:[address] [place] [id number] Comment: Estimated Glomerular Filtration Rate (eGFR) is calculated using the 2020 CKD-EPI creatinine equation. This equation utilizes serum creatinine, sex, and age as parameters. The creatinine assay has traceable calibration to isotope dilution-mass spectrometry. Refer to KDIGO guidelines for clinical interpretation. In patients with unstable renal function, e.g. those with acute kidney injury, the eGFR may not accurately reflect actual GFR.Performed By: #### 60296-7 ####[facility] LABCLIA [id number] [place], [place] [address]Ojjivyj [Mass/Vol]96 mg/wWNmuhkz05-66OupgrybppProMedica [facility] on above:Order Comment: Specimen Type: BLOOD SPECIMENOrdering Facility: [facility] Address:[address] [place], [place] [address]Result Comment: The [place] Diabetes Association (ADA) provides guidance for cutoff values for fast ing glucose and random glucose. The ADA defines fasting as no caloric intake for at least 8 hours. Fasting plasma glucose results between 100 to 125 mg/dL indicate increased risk for diabetes (prediabetes).Fasting plasma glucose results greater than or equal to 126 mg/dL meet the criteria for diagnosis of diabetes. In the absence of unequivocal hyperglycemia, results should be confirmed by repeattesting. In a patient with classic symptoms of hyperglycemia or hyperglycemic crisis, random plasmaglucose results greater than or equal to 200 mg/dL meet the criteria for diagnosis of diabetes.Reference: Standards of Medical Care in Diabetes 2016, [place] Diabetes Association. Diabetes Care. 2016.39(Suppl 1).Performed By: #### 62960-4 ####[facility] LABCLIA [id number] [place], [place] [address]Vwhmydscv [Moles/Vol]4.4 mmol/LNormal3.7-5.1CM[facility] on above: Order Comment: Specimen Type: BLOOD SPECIMENOrdering Facility: [facility] Address:[address] [place] [address]Jfsizfymc By: #### 13276- 8 ####[facility] LABCLIA [id number] [place], [place] [address]Jvgobaj [Mass/Vol]5.4 g/dLLow6.3-8.0[facility] on above:Order Comment: Specimen Type: BLOOD SPECIMENOrdering Facility: [facility] Address:[address] [place], [place] [address]Performed By: #### 77259-0 ####[facility] LABCLIA [id number] [place], [place] [address]Kqiukc [Moles/Vol]138 mmol/L Xazfgm547-861UhbyvdpkdProMedica Memorial Hospital on above:Order Comment: Specimen Type: BLOOD SPECIMENOrdering Facility: [facility] Address:[address] [place], [place] [address]Performed By: #### 56400-6 ####[facility] LABCLIA [id number] [place] [address] Urea nitrogen [Mass/Vol]10 mg/dLNormal9-24[facility] on above:Order Comment: Specimen Type: BLOOD SPECIMENOrdering Facility: [facility] Address:[address] [place], [place] [address]Performed By: #### 12198-3 ####[facility] LABCLIA [id number] [place], [place] [address]Vdgexzd SerPl-mCncon 37-31-3114Wevdlzk [Mass/Vol] 67.2 pg/mLNormal<115.0[facility] on above:Order Comment: Specimen Type: BLOOD SPECIMENOrdering Facility: [facility] Address:[address] [place], [place] [address]Result Comment: The Gastrin test was performed using the Siemens Immulite chemiluminescent immunometric method. Results obtained with different assay methods or kits cannot be used interchangeably.Performed By: #### 2333-3 ####[facility] LABCLIA [id number] [address]ETIRISWILMINGTONANNI Aguayo 58-47-0932JZYOLOOAB CBWCK9931 ng/xIPspb82-930RxdraftncProMedica Memorial Hospital on above:Order Comment: Specimen Type: BLOOD SPECIMENOrdering Facility: [facility] Address:[address] [place], [place] [address]Result Comment: TEST INFORMATION: Serotonin, SerumThis test was developed and its performance characteristicsdetermined by [employer]. It has not been cleared orapproved by the [place] Food and Drug Administration. This test wasperformed in a CLIA certified laboratory and is intended forclinical purposes.Performed By: [facility] [address] [place] [address]Wsxcpgyjae Director: Chapin Hollis MD, PhDCLIA Number: [id number] By: #### SERTON ####[facility]ENTERIA [id number] [place], [place] [address]GERLGATFQD INTESTINAL POLYPEPTIDE (VIP), PLASMAon 72-59-1599LAKCPSYULV INTESTINAL POLYPEPTIDE<20.6Hrkbbj2.0-89.1CM[facility] on above:Order Comment: Specimen Type: BLOOD SPECIMENOrdering Facility: [facility] Address:[address] [place], [place] [address]Result Comment: This test was developed and its performance characteristicsdetermined by [facility]. It has not been cleared orapproved by the U.S. Food and Drug Administration. This test wasperformed in a CLIA-certified laboratory and is intended forclinical purposes.Performed By: [address]urn[address] [place] [address]Rmhcevbrpa Director: Chapin Hollis MD, PhDCLIA Number: [id number] By: #### VIP ####[facility] LABORATORIESCLIA [id number] [place], [place] [address]Ltmcp metabolic 2000 panelon 30-48-4695Ytjgh gap [Moles/Vol]8 mmol/LNormal8-15 [facility] on above:Order Comment: Specimen Type: BLOOD SPECIMEN [facility] Address: [address] [place], [place] [address]Performed By: #### 93660-0, 08441-0 #### [facility] CLIA [id number] [address] [place] [address] [place] AMERICACalcium [Mass/Vol]7.7 mg/dLLow 8.5-10.2FPratt Clinic / [facility] HospitalComment on above:Order Comment: Specimen Type: BLOOD SPECIMEN [facility] Address: [address] [place], [place] [address]Performed By: #### 34577-5, 44036-6 #### [facility] CLIA [id number] [address] [place] [address] [place] AMERICAChloride [Moles/Vol]108 mmol/LHigh 98-107FaHudson HospitalComment on above:Order Comment: Specimen Type: BLOOD SPECIMEN [facility] Address: [address] [place], [place] [address]Performed By: #### 50518-8, 40350-1 #### [facility] CLIA [id number] [address] [place] [address] [place] AMERICACO2 [Moles/Vol]23 mmol/WUqtszy68-83 [facility] DevensComment on above:Order Comment: Specimen Type: BLOOD SPECIMEN [facility] Address: [address] [place], [place] [address]Performed By: #### 64425-5, 37739-4 #### [facility] CLIA [id number] [address] [place] [address] [place] AMERICACreatinine [Mass/Vol]1.23 mg/dLHigh 0.73-1.22FaHudson HospitalComment on above:Order Comment: Specimen Type: BLOOD SPECIMEN [facility] Address: [address] [place], [place] [address]Performed By: #### 00259-8, 30580-4 #### [facility] CLIA [id number] [address] [place] [address] [place] AMERICACreatinine and Glomerular filtration rate.predicted panel (S/P/Bld)64 mL/min/1.73m???Normal>=60[facility] Hospital Comment on above:Order Comment: Specimen Type: BLOOD SPECIMEN [facility] Address: [address] [place], [place] [address]Result Comment: Estimated Glomerular Filtration Rate (eGFR) is calculated using the 2020 CKD-EPI cre atinine equation. This equation utilizes serum creatinine, sex, and age as parameters. The creatinine assay has traceable calibration to isotope dilution- mass spectrometry. Refer to KDIGO guidelines for clinical interpretation. In patients with unstable renal function, e.g. those with acute kidney injury, the eGFR may not accurately reflect actual GFR.Performed By: #### 98753-7, 70005-9 #### [facility] CLIA [id number] [address] [place] [address] [place] AMERICAGlucose [Mass/Vol]97 mg/dLNormal 74-99FaHudson HospitalComment on above:Order Comment: Specimen Type: BLOOD SPECIMEN [facility] Address: [address] [place], [place] [address]Result Comment: The [place] Diabetes Association (ADA) provides guidance for cutoff [...] Standards of Medical Care in Diabetes 2016, [place] [employer]. Diabetes Care. 2016.39(Suppl 1).Performed By: #### 65139-6, 53408-9 #### [facility] CLIA [id number] [address] [place] [address] [place] AMERICAPotassium [Moles/Vol]4.0 mmol/L Normal3.7-5.1FPratt Clinic / [facility] HospitalComment on above:Order Comment: Specimen Type: BLOOD SPECIMEN [facility] Address: [address] [place], [place] [address]Performed By: #### 48856-4, 84259-9 #### [facility] CLIA [id number] [address] [place] [address] [place] AMERICASodium [Moles/Vol]139 mmol/LNormal 136-144[facility] HospitalComment on above:Order Comment: Specimen Type: BLOOD SPECIMEN [facility] Address: [address] [place], [place] [address]Performed By: #### 00381-8, 20056-5 #### [facility] CLIA [id number] [address] [place] [address] [place] AMERICAUrea nitrogen [Mass/Vol]8 mg/dLLow 9-24[facility] HospitalComment on above:Order Comment: Specimen Type: BLOOD SPECIMEN [facility] Address: [address] [place], [place] [address]Performed By: #### 57034-5, 12154-4 #### [facility] CLIA [id number] [address] [place] [address] [place] AMERICACBC panel Auto (Bld)on 11-03-2024 Erythrocyte distribution width (RBC) [Ratio]15.7 %High11.5-15.0[facility] Hospital Comment on above:Order Comment: Specimen Type: BLOOD SPECIMEN [facility] Address: [address] [place], [place] [address]Performed By: #### 28299-3 #### [facility] CLIA [id number] [address] [place] [address] [place] AMERICAHematocrit (Bld) [Volume fraction] 23.5 %Low39.0-51.0[facility] HospitalComment on above:Order Comment: Specimen Type: BLOOD SPECIMEN [facility] Address: [address] [place], [place] [address]Performed By: #### 69384-0 #### [facility] CLIA [id number] [address] [place] [address] [place] AMERICAHemoglobin (Bld) [Mass/Vol]7.3 g/dL Low13.0-17.0[facility] HospitalComment on above:Order Comment: Specimen Type: BLOOD SPECIMEN [facility] Address: [address] [place], [place] [address]Performed By: #### 12290-6 #### [facility] CLIA [id number] [address] [place] [address] (RBC) [Entitic mass]29.2 pg Rztdig14.0-34.0[facility] HospitalComment on above:Order Comment: Specimen Type: BLOOD SPECIMEN [facility] Address: [address] [place], [place] [address]Performed By: #### 98546-8 #### [facility] CLIA [id number] [address] [place] [address] (RBC) [Mass/Vol]31.1 g/dLNormal 30.5-36.0[facility] HospitalComment on above:Order Comment: Specimen Type: BLOOD SPECIMEN [facility] Address: [address] [place], [place] [address]Performed By: #### 30068-0 #### [facility] CLIA [id number] [address] [place] [address] (RBC) [Entitic vol]94.0 fLNormal 80.0-100.0[facility] HospitalComment on above:Order Comment: Specimen Type: BLOOD SPECIMEN [facility] Address: [address] [place], [place] [address]Performed By: #### 56687-3 #### [facility] CLIA [id number] [address] [place] [address] RBC (Bld) [#/Vol]10*3/uL Normal<0.01[facility] HospitalComment on above:Order Comment: Specimen Type: BLOOD SPECIMEN [facility] Address: [address] [place], [place] [address]Performed By: #### 91532-0 #### [facility] CLIA [id number] [address] [place], [place] [address]Platelet mean volume (Bld) [Entitic vol]11.7 fLNormal9.0-12.7Fmelrosewakefield hospital HospitalComment on above:Order Comment: Specimen Type: BLOOD SPECIMEN [facility] Address: [address] [place], [place] [address]Performed By: #### 46173-9 #### [facility] CLIA [id number] [address] [place], [place] [address]Platelets (Bld) [#/Vol]216 10*3/uL Fzzlqw427-283Buqebwje HospitalComment on above:Order Comment: Specimen Type: BLOOD SPECIMEN [facility] Address: [address] [place], [place] [address]Performed By: #### 44080-6 #### [facility] CLIA [id number] [address] [place], [place] [address]RB (d) [#/Vol]2.50 10*6/uLLow 4.20-6.00[place] HospitalComment on above:Order Comment: Specimen Type: BLOOD SPECIMEN [facility] Address: [address] [place], [place] [address]Performed By: #### 81101-6 #### [facility] CLIA [id number] [address] [place], [place] [address]W (d) [#/Vol]4.43 10*3/uLNormal 3.70-11.00[facility] HospitalComment on above:Order Comment: Specimen Type: BLOOD SPECIMEN [facility] Address: [address] [place], [place] [address]Performed By: #### 62420-2 #### [facility] CLIA [id number] [address] [place], [place] [address]CNBellevue [facility] 37-51-4278NOWKBFJ ID: [id number] Author: BRENDA PAUL APRN.[employer] Service: General Internal Medicine Author Type: Nurse Practitioner Type: Discharge Summary Filed: 11/03/2024 15:19 Note Text: Attestation signed by Lew Arita MD at 11/03/2024 10:39 PM Agree DISCHARGE SUMMARY PATIENT NAME: Aisha Julien ADMISSION [...] PROCEDURES PENDING AT DISCHARGE: NONE Reason for Hospitalization/Principal Diagnosis: GI BLEED Hospital Course: Mr. Alexander [...] CKD stage 3a. He initially went to [facility] ED on 10/28 where Hb as 8.2. [...] Team: Attending Provider: Lew Arita MD Consulting: [facility] Nurse Practitioner: Brenda Paul APRN.[employer] SEALER DISCHARGE DISPOSITION: Home with Self Care PHYSICAL [...] Center 11/05/2024 8:00 AM LAB [facility] [place] 11/05/2024 8:15 AM LAB[facility] [place] 12/02/2024 3:15 PM LAB[facility] [place] 12/09/2024 9:00 AM Roselyn Leonard MD [facility] ALLERGIES No Known Allergies Discharge Medications: Current Discharge Medication List CONTINUE these medications which have CHANGED finasteride (PROSCAR) 5 mg Take 5 mg by mouth once daily. Patient should start on November 04, 2024. CONTINUE these medications which have NOT CHANGED octreotide LAR (SANDOSTATIN LAR (more content not included)...[facility]: [id number] Author: LEW ARITA MD Service: General Internal [...] MD Consulting: [facility] Nurse Practitioner: Brenda Paul APRN.CNP REASON FOR HOSPITALIZATION: Black tarry stools DIAGNOSIS: [...] CKD stage 3a. He initially went to [facility] ED on 10/28 where Hb as 8.2. [...] of care discussed with Patient, RN, and FLIGHT SERVICE AGENT I have performed the dhkd-bs-ynxx and relevant services for a total of >30 minutes. SIGNATURE: Lew Arita MD DATE: November 03, 2024 TIME: 1:24 PM This note was partially created using voice recognition software and is inherently subject to errors including those of syntax and sound-alike substitutions which may escape proofreading. In suc (more content not included)...NormalFairlicking memorial hospital HospitalCNPNon 67-46-8304YXQKMrjhyrLfbzwzchd Clinic ClevelandMagnesium SerPl-mCncon 67-27-6607Bkowmtfjz [Mass/Vol]1.8 mg/dLNormal 1.7-2.3[facility] HospitalComment on above:Order Comment: Specimen Type: BLOOD SPECIMEN [facility] Address: [address] [place], [place] [address]Performed By: #### 96234-8, 25018-9 #### [facility] CLIA [id number] [address] [place] [address] AMERICABasic metabolic 2000 panelon 70-39-7684Vqdop gap [Moles/Vol]10 mmol/LNormal8-15[facility] HospitalComment on above:Order Comment: Specimen Type: BLOOD SPECIMEN [facility] Address: [address] [place], [place] [address]Performed By: #### 11643-7 #### [facility] CLIA [id number] [address] [place] [address] [place] AMERICACalcium [Mass/Vol]7.7 mg/dLLow 8.5-10.2Fmel[facility]field hospital HospitalComment on above:Order Comment: Specimen Type: BLOOD SPECIMEN [facility] Address: [address] [place], [place] [address]Performed By: #### 32069-5 #### [facility] CLIA [id number] [address] [place] [address] [place] AMERICAChloride [Moles/Vol]108 mmol/LHigh 98-107[facility] HospitalComment on above:Order Comment: Specimen Type: BLOOD SPECIMEN [facility] Address: [address] [place], [place] [address]Performed By: #### 82084-3 #### [facility] CLIA [id number] [address] [place] [address] [place] AMERICACO2 [Moles/Vol]23 mmol/BLcjzhh31-10 [place] HospitalComment on above:Order Comment: Specimen Type: BLOOD SPECIMEN [facility] Address: [address] [place], [place] [address]Performed By: #### 99964-9 #### [facility] CLIA [id number] [address] [place] [address] [place] AMERICACreatinine [Mass/Vol]1.24 mg/dLHigh 0.73-1.22[facility] HospitalComment on above:Order Comment: Specimen Type: BLOOD SPECIMEN [facility] Address: [address] [place], [place] [address]Performed By: #### 85489-2 #### [facility] CLIA [id number] [address] [place] [address] [place] AMERICACreatinine and Glomerular filtration rate.predicted panel (S/P/Bld)63 mL/min/1.73m???Normal>=60[facility] Comment on above:Order Comment: Specimen Type: BLOOD SPECIMEN [facility] Address: [address] [place], [place] [address]Result Comment: Estimated Glomerular Filtration Rate (eGFR) is calculated using the 2020 CKD-EPI cre atinine equation. This equation utilizes serum creatinine, sex, and age as parameters. The creatinine assay has traceable calibration to isotope dilution- mass spectrometry. Refer to KDIGO guidelines for clinical interpretation. In patients with unstable renal function, e.g. those with acute kidney injury, the eGFR may not accurately reflect actual GFR.Performed By: #### 89110-4 #### [facility] CLIA [id number] [address] [place] [address] [place] AMERICAGlucose [Mass/Vol]92 mg/dLNormal 74-99[facility] DevensComment on above:Order Comment: Specimen Type: BLOOD SPECIMEN [facility] Address: [address] [place] [address] Comment: The [place] Diabetes Association (ADA) provides guidance for cutoff [...] Standards of Medical Care in Diabetes 2016, [place] [employer]. Diabetes Care. 2016.39(Suppl 1).Performed By: #### 47546-3 #### [facility] CLIA [id number] [address] [place] [address] [place] AMERICAPotassium [Moles/Vol]3.9 mmol/L Normal3.7-5.1[facility] HospitalComment on above:Order Comment: Specimen Type: BLOOD SPECIMEN [facility] Address: [address] [place], [place] [address]Performed By: #### 84079-7 #### [facility] CLIA [id number] [address] [place] [address] [place] MAGRUDER HOSPITALSodium [Moles/Vol]141 mmol/LNormal 136-144[facility] HospitalComment on above:Order Comment: Specimen Type: BLOOD SPECIMEN [facility] Address: [address] [place], [place] [address]Performed By: #### 14282-2 #### [facility] CLIA [id number] [address] [place] [address] [place] AMERICAUrea nitrogen [Mass/Vol]11 mg/dL Normal9-24[facility] HospitalComment on above:Order Comment: Specimen Type: BLOOD SPECIMEN [facility] Address: [address] [place], [place] [address]Performed By: #### 60107-2 #### [facility] CLIA [id number] [address] [place] [address] [place] AMERICACBC panel Auto (Bld)on 11-02-2024 Erythrocyte distribution width (RBC) [Ratio]16.0 %High11.5-15.0[facility] Comment on above:Order Comment: Specimen Type: BLOOD SPECIMEN [facility] Address: [address] [place], [place] [address]Performed By: #### 17863-2, 93526-6 #### [facility] CLIA [id number] [address] [place] [address] [place] AMERICAHematocrit (Bld) [Volume fraction] 24.0 %Low39.0-51.0[facility] HospitalComment on above:Order Comment: Specimen Type: BLOOD SPECIMEN [facility] Address: [address] [place], [place] [address]Performed By: #### 25998-2, 55709-1 #### [facility] CLIA [id number] [address] [place], [place] [address]Hemoglobin (Bld) [Mass/Vol]7.4 g/dL Low13.0-17.0[facility] HospitalComment on above:Order Comment: Specimen Type: BLOOD SPECIMEN [facility] Address: [address] [place], [place] [address]Performed By: #### 82357-5, 74430-5 #### [facility] CLIA [id number] [address] [place], [place] [address] (RBC) [Entitic mass]29.1 pg Bcgsjx21.0-34.0[facility] HospitalComment on above:Order Comment: Specimen Type: BLOOD SPECIMEN [facility] Address: [address] [place], [place] [address]Performed By: #### 46390-6, 20628-2 #### [facility] CLIA [id number] [address] [place], [place] [address]HC (RBC) [Mass/Vol]30.8 g/dLNormal 30.5-36.0[facility] HospitalComment on above:Order Comment: Specimen Type: BLOOD SPECIMEN [facility] Address: [address] [place], [place] [address]Performed By: #### 94390-5, 40029-9 #### [facility] CLIA [id number] [address] [place] [address] (RBC) [Entitic vol]94.5 fLNormal 80.0-100.0[facility] HospitalComment on above:Order Comment: Specimen Type: BLOOD SPECIMEN [facility] Address: [address] [place], [place] [address]Performed By: #### 76135-1, 79949-3 #### [facility] CLIA [id number] [address] [place] [address] RBC (Bld) [#/Vol]10*3/uL Normal<0.01[facility] HospitalComment on above:Order Comment: Specimen Type: BLOOD SPECIMEN [facility] Address: [address] [place], [place] [address]Performed By: #### 54021-3, 31645-9 #### [facility] CLIA [id number] [address] [place] [address] [place] AMERICAPlatelet mean volume (Bld) [Entitic vol]11.4 fLNormal9.0-12.7F[facility] HospitalComment on above:Order Comment: Specimen Type: BLOOD SPECIMEN [facility] Address: [address] [place], [place] [address]Performed By: #### 86958-7, 68770-8 #### [facility] CLIA [id number] [address] [place] [address] [place] AMERICAPlatelets (Bld) [#/Vol]192 10*3/uL Sfwyry371-342Albnyfpw HospitalComment on above:Order Comment: Specimen Type: BLOOD SPECIMEN [facility] Address: [address] [place], [place] [address]Performed By: #### 06747-4, 78314-6 #### [facility] CLIA [id number] [address] [place] [address] [place] AMERICARBC (Bld) [#/Vol]2.54 10*6/uLLow 4.20-6.00[facility] HospitalComment on above:Order Comment: Specimen Type: BLOOD SPECIMEN [facility] Address: [address] [place], [place] [address]Performed By: #### 47026-4, 48006-4 #### [facility] CLIA [id number] [address] [place] [address] [place] AMERICAWBC (Bld) [#/Vol]4.77 10*3/uLNormal 3.70-11.00[facility] HospitalComment on above:Order Comment: Specimen Type: BLOOD SPECIMEN [facility] Address: [address] [place], [place] [address]Performed By: #### 69871-4, 36931-6 #### [facility] CLIA [id number] [address] [place] [address] [place] AMERICAMagnesium SerPl-mCncon 11-02-2024 Magnesium [Mass/Vol]1.9 mg/dLNormal1.7-2.3FPr[facility] HospitalComment on above: Order Comment: Specimen Type: BLOOD SPECIMEN [facility] Address: [address] [place], [place] [address]Performed By: #### 78557-1 #### [facility] CLIA [id number] [address] [place] [id number] [place] OF AMERICAANES POSTPROC EVALon 09-42-1234UHED POSTPROC EVALHNO ID: [id number] Author: KIP HILARIO MD Service: Anesthesiology Author Type: Anesthesiologist Type: Anesthesia Postprocedure Evaluation Filed: 11/02/2024 14:28 Note Text: POST ANESTHESIA EVALUATION NOTE : 1955 Procedure Summary Date: 11/01/24 Room / Location: [facility] - ENDO Anesthesia Start: 1433 Anesthesia [...] November 01, 2024 TIME: 3:27 PM CSN: [id number] HospitalANES PRE-OPon 35-88-2803MCIW PRE-OPHNO ID: [id number] Author: RADHA BOND MD Service: Anesthesiology Author Type: Anesthesiologist Type: Anesthesia Preprocedure Evaluation Filed: 11/01/2024 13:28 Note Text: ANESTHESIOLOGY DAY OF SURGERY NOTE : 1955 Procedure Information Date/Time: 11/01/24 1300 Scheduled providers: Pratik Winters MD; Radha Bond MD; Nasreen Manzano APRN.INSPECTOR POISING Procedures: ENTEROSCOPY COLONOSCOPY DIAGNOSTIC [facility] [facility] - ENDO Estimated body mass index [...] and consent discussed: yes. Patient / Responsible [employer] agrees to proceed: yes Patient / Surrogate [...] November 01, 2024 TIME: 1:27 PM CSN: [id number] HospitalBasi metabolic 2000 panelon 77-64-4045Ngaqd gap [Moles/Vol]10 mmol/LNormal8-15[place] HospitalComment on above:Order Comment: Specimen Type: BLOOD SPECIMEN [facility]: [facility] Address: [address] [place], [place] [address]Performed By: #### 59526-9, 70601-0 #### [facility] CLIA [id number] [address] [place] [address] [place] OF AMERICACalcium [Mass/Vol]7.6 mg/dLLow 8.5-10.2F[facility]field hospital HospitalComment on above:Order Comment: Specimen Type: BLOOD SPECIMEN [facility]: [facility] Address: [address] [place], [place] [address]Performed By: #### 72116-9, 47552-2 #### [facility] CLIA [id number] [address] [place] [address] [place] OF AMERICAChloride [Moles/Vol]109 mmol/LHigh 98-107FaHudson HospitalComment on above:Order Comment: Specimen Type: BLOOD SPECIMEN [facility]: [facility] Address: [address] [place], [place] [address]Performed By: #### 37093-1, 90053-8 #### [facility] CLIA [id number] [address] [place] [address] [place] AMERICACO2 [Moles/Vol]23 mmol/YNusizd42-35 [facility]ensComment on above:Order Comment: Specimen Type: BLOOD SPECIMEN [facility] Address: [address] [place], [place] [address]Performed By: #### 60840-1, 33142-0 #### [facility] CLIA [id number] [address] [place] [address] [place] AMERICACreatinine [Mass/Vol]1.11 mg/dL Normal0.73-1.22FaHudson HospitalComment on above:Order Comment: Specimen Type: BLOOD SPECIMEN [facility]: [facility] Address: [address] [place], [place] [address]Performed By: #### 05421-5, 12427-5 #### [facility] CLIA [id number] [address] [place] [address] [place] AMERICACreatinine and Glomerular filtration rate.predicted panel (S/P/Bld)72 mL/min/1.73m???Normal>=60[facility] Comment on above:Order Comment: Specimen Type: BLOOD SPECIMEN [facility]ing [facility]: [facility] Address: [address] [place], [place] [address]Result Comment: Estimated Glomerular Filtration Rate (eGFR) is calculated using the 2020 CKD-EPI cre atinine equation. This equation utilizes serum creatinine, sex, and age as parameters. The creatinine assay has traceable calibration to isotope dilution- mass spectrometry. Refer to KDIGO guidelines for clinical interpretation. In patients with unstable renal function, e.g. those with acute kidney injury, the eGFR may not accurately reflect actual GFR.Performed By: #### 04562-6, 69737-2 #### [facility] CLIA [id number] [place] [address] [place] AMERICAGlucose [Mass/Vol]104 mg/rMHdtx96-77 [facility] DevensComment on above:Order Comment: Specimen Type: BLOOD SPECIMEN [facility] Address: [address] [place], [place] [address]Result Comment: The [place] Diabetes Association (ADA) provides guidance for cutoff [...] Standards of Medical Care in Diabetes 2016, [place] [employer] Association. Diabetes Care. 2016.39(Suppl 1).Performed By: #### 00211-0, 96248-7 #### [facility] CLIA [id number] [address] [place] [id number] [place] OF AMERICAPotassium [Moles/Vol]3.4 mmol/LLow 3.7-5.1FPr[facility] HospitalComment on above:Order Comment: Specimen Type: BLOOD SPECIMEN [facility] Address: [address] [place], [place] [address]Performed By: #### 27661-3, 16624-3 #### [facility] CLIA [id number] [place] [address] [place] AMERICASodium [Moles/Vol]142 mmol/LNormal 136-144[facility] HospitalComment on above:Order Comment: Specimen Type: BLOOD SPECIMEN [facility] Address: [address] [place], [place] [address]Performed By: #### 42289-2, 54309-2 #### [facility] CLIA [id number] [address] [place] [address] [place] AMERICAUrea nitrogen [Mass/Vol]14 mg/dL Normal9-24FaHudson HospitalComment on above:Order Comment: Specimen Type: BLOOD SPECIMEN [facility] Address: [address] [place], [place] [address]Performed By: #### 26095-6, 39833-5 #### [facility] CLIA [id number] [address] [place] [address] [place] OF AMERICACBC panel Auto (Bld)on 11-01-2024 Erythrocyte distribution width (RBC) [Ratio]16.8 %High11.5-15.0[facility] Comment on above:Order Comment: Specimen Type: BLOOD SPECIMEN [facility] Address: [address] [place], [place] [address]Performed By: #### 60872-4 #### [facility] CLIA [id number] [address] [place] [address] [place] AMERICAHematocrit (Bld) [Volume fraction] 22.2 %Low39.0-51.0[facility] HospitalComment on above:Order Comment: Specimen Type: BLOOD SPECIMEN [facility] Address: [address] [place], [place] [address]Performed By: #### 65754-4 #### [facility] CLIA [id number] [address] [place] GARCIA STREETHemoglobin (Bld) [Mass/Vol]7.3 g/dL Low13.0-17.0[facility] HospitalComment on above:Order Comment: Specimen Type: BLOOD SPECIMEN [facility] Address: [address] [place], [place] [address]Performed By: #### 53274-1 #### [facility] CLIA [id number] [address] [place] [address] (RBC) [Entitic mass]30.4 pg Uudywj29.0-34.0[facility] HospitalComment on above:Order Comment: Specimen Type: BLOOD SPECIMEN [facility] Address: [address] [place], [place] [address]Performed By: #### 93618-2 #### [facility] CLIA [id number] [address] [place] [address] (RBC) [Mass/Vol]32.9 g/dLNormal 30.5-36.0[facility] HospitalComment on above:Order Comment: Specimen Type: BLOOD SPECIMEN [facility] Address: [address] [place], [place] [address]Performed By: #### 32147-4 #### [facility] CLIA [id number] [address] [place] [address] (RBC) [Entitic vol]92.5 fLNormal 80.0-100.0[facility] HospitalComment on above:Order Comment: Specimen Type: BLOOD SPECIMEN [facility] Address: [address] [place], [place] [address]Performed By: #### 37215-9 #### [facility] CLIA [id number] [address] [place] [address] RBC (Bld) [#/Vol]10*3/uL Normal<0.01[facility] HospitalComment on above:Order Comment: Specimen Type: BLOOD SPECIMEN [facility] Address: [address] [place], [place] [address]Performed By: #### 73479-6 #### [facility] CLIA [id number] [address] [place] [address] [place] AMERICAPlatelet mean volume (Bld) [Entitic vol]11.0 fLNormal9.0-12.7Fmel[facility] HospitalComment on above:Order Comment: Specimen Type: BLOOD SPECIMEN [facility] Address: [address] [place], [place] [address]Performed By: #### 58373-8 #### [facility] CLIA [id number] [address] [place] [address] [place] AMERICAPlatelets (Bld) [#/Vol]172 10*3/uL Khplnm006-347Gttmnsrf HospitalComment on above:Order Comment: Specimen Type: BLOOD SPECIMEN [facility] Address: [address] [place], [place] [address]Performed By: #### 07966-9 #### [facility] [place] [id number] [address] [place] [address] [place] AMERICARBC (Bld) [#/Vol]2.40 10*6/uLLow 4.20-6.00[place] HospitalComment on above:Order Comment: Specimen Type: BLOOD SPECIMEN [facility] Address: [address] [place], [place] [address]Performed By: #### 21011-3 #### [facility] [place] [id number] [address] [place] [address] [place] AMERICAWBC (Bld) [#/Vol]4.49 10*3/uLNormal 3.70-11.00[place] HospitalComment on above:Order Comment: Specimen Type: BLOOD SPECIMEN [facility] Address: [address] [place], [place] [address]Performed By: #### 22516-9 #### [facility] [place] [id number] [address] [place] [address] [place] OF AMERICACNPNon 85-19-2916QHHLDzkourPkfdjvsse Clinic ClevelandCONSULTon 35-10-2811LJXVQLSHOS ID: [id number] Author: RASHID CLARK MD Service: Hematology/Oncology Author [...] therapy with Sandostatin with Dr. Henry in [place] started 11/2023. Receives q 3 weeks. Additionally [...] duodenal obstruction 06/2023 . Patient presented to [place] [facility] 10/31/2024 with 1 week history of bloody diarrhea, weakness, dizziness. He also reports 2 episodes of bloody emesis. Patient initially presented to [facility] ED on 10/28/24, Hgb was 8.2. CT [...] therapy with Sandostatin with Dr. Henry in [place] started 11/2023 ATTENDING NOTE: Case discussed with Dr. Clark. SIGNATURE: Ziyad Santos MD DATE: November 01, 2024 TIME: 10:12 AM [facility] [place], [facility] BY [facility] PHYSIC[facility] NOTE OF PERSONAL INVOLVEMENT IN CARE I have reviewed the progress note obtained and documented by the resident and I personally participated in the ayala components. I have discussed the case and management of the patient's care. The follow (more content not included)... NormalFederal [facility] Center, DevensColonoscopyon 11-56-6781GdxcmfpivfsTbqntkvc [facility] Gastrointestinal Endoscopy Patient Name: Aisha Julien Procedure Date: 11/01/2024 2:27 PM Date of : 1955 Admit Type: Inpatient Age: 69 Room: [place] [address] Gender: Male Note Status: Finalized Attending MD: Pratik Winters MD, [id number] Procedure: Colonoscopy Indications: Evaluation of unexplained GI bleeding presenting with Hematochezia Providers: Pratik Winters MD, Radha Silva, RN, Itzel Alicia, [...] saturations were monitored continuously. The PCF H190L [id number] was introduced through the anus and advanced to the terminal ileum. The colonoscopy was performed without difficulty. The patient tolerated the procedure well. The terminal ileum, ileocecal valve, appendiceal orifice, and rectum were photographed. The quality of the bowel preparation was evaluated using the BBPS (Melvin Bowel Preparation Scale) with scores of: Right [...] the patient. Procedure Code(s): --- Professional --- 59916, Colonoscopy, flexible; diagnostic, including collection of specimen(s) by brushing or washing, when performed (separate procedure) Diagnosis Code(s): --- Professional --- K64.8, Other hemorrhoids K92.1, Melena (includes Hematochezia) CPT copyright 2020 [employer] [employer]. All rights reserved. The codes documented in this report are preliminary and upon strip cutter review may be revised to meet current compliance requirements. Attending Participation: I personally performed the entire procedure. Scope In: 2:54:05 PM Scope Out: 3:05:46 PM MD Pratik Escobar MD 11/01/2024 3:18:10 PM This report has been signed electronically by Pratik Winters MD (more content not included)...[facility] PHYSICALon 28-43-1419ZFESYBG PHYSICALHNO ID: [id number] Author: PRATIK WINTERS MD Service: Gastroenterology Author [...] Plan: MAC Additional Comments: None Pratik Winters MDNormalFairview HospitalHaptoglob SerPl-mCncon 11-01-2024 Haptoglobin [Mass/Vol]85 mg/bPXjgfqy95-342Jyswtpih HospitalComment on above: Order Comment: Specimen Type: BLOOD SPECIMEN [facility] Address: [address] [place], [place] [address]Performed By: #### 58713-2, 10452-8 #### [facility] CLIA [id number] OF AMERICAMagnesium SerPl-mCncon 11-01-2024 Magnesium [Mass/Vol]1.9 mg/dLNormal1.7-2.3FPr[facility] Clinic / [facility] HospitalComment on above: Order Comment: Specimen Type: BLOOD SPECIMEN [facility] Address: [address] [place], [place] [address]Performed By: #### 96449-2, 07283-2 #### [facility] CLIA [id number] [address] [place] [address] OF AMERICASmall bowel enteroscopyon 11-01-2024 [facility] Patient Name: Aisha Julien Procedure Date: 11/01/2024 2:28 PM Date of : 1955 Admit Type: Inpatient Age: 69 Room: [place] [address] Gender: Male Note Status: Home Health Aide Caregiver Override Attending MD: Pratik Winters MD, [id number] Procedure: Small bowel enteroscopy Indications: Melena Providers: Pratik Winters MD, Radha Silva RN, Itzel Alicia, LUCILLE (Assisting Nurse), Sherri Lilly (Assisting Nurse orientee) [...] saturations were monitored continuously. The PCF H190L [id number] was introduced through the mouth and advanced [...] antiplatelet agents. Procedure Code(s): --- Professional --- 62690, Small intestinal endoscopy, enteroscopy beyond second portion of duodenum, not including ileum; diagnostic, including collection of specimen(s) by brushing or washing, when performed (separate procedure) Diagnosis Code(s): --- Professional --- K31.5, Obstruction of duodenum Z98.0, Intestinal bypass and anastomosis status K31.89, Other diseases of stomach and duodenum K92.1, Melena (includes Hematochezia) CPT copyright 2020 [employer]. All rights reserved. The codes documented in this report are preliminary and upon strip cutter review may be revised to meet current compliance requirements. Attending Participation: I personally performed the entire procedure. Scope In: 2:39:12 PM Scope Out: 2:45:34 PM MD Pratik Escobar MD 11/01/2024 2:52:31 PM This report has been signed electronically by Pratik Winters MD Number of Addenda: 0 Note Initiated On: 11/01/2024 2:28 PM Estimated Blood Loss: Estimated blood loss: none.NormalPl[facility] W Auto Differential panel (Bld)on 51-14-3331Ktienvpic (Bld) [#/Vol]10*3/uLNormal <0.11[facility], DevensComment on above:Order Comment: Specimen Type: BLOOD SPECIMEN [facility] Address: [address] [place], [place] [address]Performed By: #### 19496-5, 67072-1 #### [facility] CLIA [id number] [address] [place] [address] [place] AMERICABasophils/100 WBC (Bld)0.4 %Normal [facility]ensCombeaumont hospital on above:Order Comment: Specimen Type: BLOOD SPECIMEN [facility] Address: [address] [place], [place] [address]Performed By: #### 55757-4, 66721-0 #### [facility] CLIA [id number] [address] [place] [address] [place] AMERICADifferential cell count method Nom (Bld)AutoNormalFederal Medical Center, DevensComment on above:Order Comment: Specimen Type: BLOOD SPECIMEN [facility] Address: [address] [place], [place] [address]Performed By: #### 41935-5, 91436-0 #### [facility] CLIA [id number] [address] [place] [address] [place] AMERICAEosinophils (Bld) [#/Vol]10*3/uL Normal<0.46[facility] HospitalComment on above:Order Comment: Specimen Type: BLOOD SPECIMEN [facility] Address: [address] [place], [place] [address]Performed By: #### 43311-1, 38388-8 #### [facility] CLIA [id number] [address] [place] [address] [place] AMERICAEosinophils/100 WBC (Bld)0.4 %Normal [facility], DevensComment on above:Order Comment: Specimen Type: BLOOD SPECIMEN [facility] Address: [address] [place], [place] [address]Performed By: #### 97936-8, 94688-9 #### [facility] CLIA [id number] [address] [place] [address] [place] AMERICAErythrocyte distribution width (RBC) [Ratio]14.6 %Pftqaa77.5-15.0[facility] HospitalComment on above:Order Comment: Specimen Type: BLOOD SPECIMEN [facility] Address: [address] [place], [place] [address]Performed By: #### 34837-5, 46787-5 #### [facility] CLIA [id number] [address] [place] [address] [place] AMERICAHematocrit (Bld) [Volume fraction] 17.9 %Low39.0-51.0[facility] HospitalComment on above:Order Comment: Specimen Type: BLOOD SPECIMEN [facility] Address: [address] [place], [place] [address]Performed By: #### 61660-2, 57009-8 #### [facility] CLIA [id number] [address] [place] [address] [place] AMERICAHemoglobin (Bld) [Mass/Vol]5.7 g/dL Critically low13.0-17.0[place] HospitalComment on above:Order Comment: Specimen Type: BLOOD SPECIMEN [facility] Address: [address] [place], [place] [address]Result Comment: No clot detected. Performed By: #### 84280-6, 16815-3 #### [facility] CLIA [id number] [address] [place] [address] [place] AMERICAImmature granulocytes (Bld) [#/Vol] 0.05 10*3/uLNormal<0.10[facility] HospitalComment on above:Order Comment: Specimen Type: BLOOD SPECIMEN [facility] Address: [address] [place], [place] [address]Performed By: #### 09103-2, 06189-8 #### [facility] CLIA [id number] [address] [place] [address] [place] AMERICAImmature granulocytes/100 WBC (Bld) 0.9 %NormalMiami HospitalComment on above:Order Comment: Specimen Type: BLOOD SPECIMEN [facility] Address: [address] [place], [place] [address]Performed By: #### 22922-6, #### [facility] CLIA [id number] [address] [place] [address] [place] OF AMERICALymphocytes (Bld) [#/Vol]0.43 10*3/uLLow1.00-4.00[facility] HospitalComment on above:Order Comment: Specimen Type: BLOOD SPECIMEN [facility] Address: [address] [place], [place] [address]Performed By: #### 48837-2, 23170-7 #### [facility] CLIA [id number] [address] [place] [address] [place] AMERICALymphocytes/100 WBC (Bld)7.7 %Normal [place] HospitalComment on above:Order Comment: Specimen Type: BLOOD SPECIMEN [facility] Address: [address] [place], [place] [address]Performed By: #### 36963-0, 06411-3 #### [facility] CLIA [id number] [address] [place] [address] [place] AMERICAMCH (RBC) [Entitic mass]30.5 pg Gojxtv00.0-34.0[facility] HospitalComment on above:Order Comment: Specimen Type: BLOOD SPECIMEN [facility] Address: [address] [place], [place] [address]Performed By: #### 48874-0, 19104-2 #### [facility] CLIA [id number] [address] [place] [address] [place] AMERICAMCHC (RBC) [Mass/Vol]31.8 g/dLNormal 30.5-36.0[facility] HospitalComment on above:Order Comment: Specimen Type: BLOOD SPECIMEN [facility] Address: [address] [place], [place] [address]Performed By: #### 81923-7, 59128-5 #### [facility] CLIA [id number] [address] [place] [address] OF MAGRUDER HOSPITALMCV (RBC) [Entitic vol]95.7 fLNormal 80.0-100.0[facility] HospitalComment on above:Order Comment: Specimen Type: BLOOD SPECIMEN [facility] Address: [address] [place], [place] [address]Performed By: #### 96931-7, 85143-1 #### [facility] CLIA [id number] [address] [place] [address] [place] AMERICAMonocytes (Bld) [#/Vol]0.81 10*3/uL Normal<0.87[facility] HospitalComment on above:Order Comment: Specimen Type: BLOOD SPECIMEN [facility] Address: [address] [place], [place] [address]Performed By: #### 68220-1, 80881-4 #### [facility] CLIA [id number] [address] [place] [address] [place] AMERICAMonocytes/100 WBC (Bld)14.6 %Normal [facility], DevensComment on above:Order Comment: Specimen Type: BLOOD SPECIMEN [facility] Address: [address] [place], [place] [address]Performed By: #### 74563-8, 86900-4 #### [facility] CLIA [id number] [address] [place] [address] [place] AMERICANeutrophils (Bld) [#/Vol]4.23 10*3/uLNormal1.45-7.50[place] HospitalComment on above:Order Comment: Specimen Type: BLOOD SPECIMEN [facility] Address: [address] [place], [place] [address]Performed By: #### 65965-8, 86343-0 #### [facility] CLIA [id number] [address] [place] [address] [place] OF AMERICANeutrophils/100 WBC (Bld)76.0 % NormalMiami HospitalComment on above:Order Comment: Specimen Type: BLOOD SPECIMEN [facility] Address: [address] [place], [place] [address]Performed By: #### 43423-5, 09137-9 #### [facility] CLIA [id number] [address] [place] [address] [place] OF AMERICANucleated RBC (Bld) [#/Vol]10*3/uL Normal<0.01[place] HospitalComment on above:Order Comment: Specimen Type: BLOOD SPECIMEN [facility] Address: [address] [place], [place] [address]Performed By: #### 11238-2, 51616-7 #### [facility] CLIA [id number] [address] [place] [address] [place] AMERICANucleated RBC/100 WBC (Bld) [Ratio] 0.0 /100 WBCNormalMiami HospitalComment on above:Order Comment: Specimen Type: BLOOD SPECIMEN [facility] Address: [address] [place], [place] [address]Performed By: #### 49245-9, 32011-6 #### [facility] CLIA [id number] [address] [place] [address] [place] AMERICAPlatelet mean volume (Bld) [Entitic vol]11.8 fLNormal9.0-12.7Fmelrosewakefield hospital HospitalComment on above:Order Comment: Specimen Type: BLOOD SPECIMEN [facility] Address: [address] [place], [place] [address]Performed By: #### 01680-3, 40752-1 #### [facility] CLIA [id number] [address] [place], [place] [address]Platelets (Bld) [#/Vol]174 10*3/uL Poenbe399-052Apysobjj HospitalComment on above:Order Comment: Specimen Type: BLOOD SPECIMEN [facility] Address: [address] [place], [place] [address]Performed By: #### 90973-2, 13751-1 #### [facility] CLIA [id number] [address] [place], [place] [address]RB (Bld) [#/Vol]1.87 10*6/uLLow 4.20-6.00FaHudson HospitalComment on above:Order Comment: Specimen Type: BLOOD SPECIMEN [facility] Address: [address] [place], [place] [address]Performed By: #### 43413-4, 03530-5 #### [facility] CLIA [id number] [address] [place], [place] [address]WBC (Bld) [#/Vol]5.56 10*3/uLNormal 3.70-11.00[facility], DevensComment on above:Order Comment: Specimen Type: BLOOD SPECIMEN [facility] Address: [address] [place], [place] [address]Performed By: #### 35308-4, 65806-0 #### [facility] CLIA [id number] [address] [place], [place] [address] [facility]ITALCB panel Auto (Bld)on 10-31-2024 Erythrocyte distribution width (RBC) [Ratio]16.4 %High11.5-15.0[facility] [facility] Comment on above:Order Comment: Specimen Type: BLOOD SPECIMEN [facility] Address: [address] [place], [place] [address]Performed By: #### 76628-4 #### [facility] CLIA [id number] [place] [address] [place] AMERICAHematocrit (Bld) [Volume fraction] 23.5 %Low39.0-51.0[facility] HospitalComment on above:Order Comment: Specimen Type: BLOOD SPECIMEN [facility] Address: [address] [place], [place] [address]Performed By: #### 32648-8 #### [facility] CLIA [id number] [place] [address] [place] AMERICAHemoglobin (Bld) [Mass/Vol]7.6 g/dL Low13.0-17.0[place] HospitalComment on above:Order Comment: Specimen Type: BLOOD SPECIMEN [facility] Address: [address] [place], [place] [address]Performed By: #### 83489-3 #### [facility] CLIA [id number] [address] [place] [address] STATES OF MAGRUDER HOSPITALMCH (RBC) [Entitic mass]30.3 pg Rpsdkr94.0-34.0[facility] HospitalComment on above:Order Comment: Specimen Type: BLOOD SPECIMEN [facility] Address: [address] [place], [place] [address]Performed By: #### 37013-8 #### [facility] CLIA [id number] [address] [place] [address] [place] OF AMERICAMCHC (RBC) [Mass/Vol]32.3 g/dLNormal 30.5-36.0[facility] HospitalComment on above:Order Comment: Specimen Type: BLOOD SPECIMEN [facility] Address: [address] [address] [place], [place] [address]Performed By: #### 87696-0 #### [facility] CLIA [id number] [address] [place] [address] OF MAGRUDER HOSPITALMCV (RBC) [Entitic vol]93.6 fLNormal 80.0-100.0[facility] HospitalComment on above:Order Comment: Specimen Type: BLOOD SPECIMEN [facility]: [facility] Address: [address] [place], [place] [address]Performed By: #### 41993-9 #### [facility] CLIA [id number] [address] [place] [address] [place] OF AMERICANucleated RBC (Bld) [#/Vol]10*3/uL Normal<0.01[facility] HospitalComment on above:Order Comment: Specimen Type: BLOOD SPECIMEN [facility] Address: [address] [place], [place] [address]Performed By: #### 20441-0 #### [facility] CLIA [id number] [address] [place] [address] [place] OF AMERICAPlatelet mean volume (Bld) [Entitic vol]11.6 fLNormal9.0-12.7Fmelrosewakefield hospital HospitalComment on above:Order Comment: Specimen Type: BLOOD SPECIMEN [facility] Address: [address] [place], [place] [address]Performed By: #### 62780-1 #### [facility] CLIA [id number] [address] [place] [address] [place] OF AMERICAPlatelets (Bld) [#/Vol]164 10*3/uL Vxykas397-375Yzasqpuc HospitalComment on above:Order Comment: Specimen Type: BLOOD SPECIMEN [facility] Address: [address] [place], [place] [address]Performed By: #### 10281-7 #### [facility] CLIA [id number] [address] [place] [address] [place] OF AMERICARBC (Bld) [#/Vol]2.51 10*6/uLLow 4.20-6.00[facility] HospitalComment on above:Order Comment: Specimen Type: BLOOD SPECIMEN [facility] Address: [address] [place], [place] [address]Performed By: #### 67902-9 #### [facility] CLIA [id number] [address] [place] [address] [place] OF AMERICAWBC (Bld) [#/Vol]6.24 10*3/uLNormal 3.70-11.00FaHudson HospitalComment on above:Order Comment: Specimen Type: BLOOD SPECIMEN [facility] Address: [address] [place] [id number] By: #### 04483-2 #### [facility] CLIA [id number] STATES AMERICACONSULTon 16-08-2672FPJMYHSAAF ID: [id number] Author: NIA ROJAS APRN.CIGARETTE CARTON SEALER Service: Gastroenterology Author Type: Nurse Practitioner Type: [...] not work. He has been seen at [facility], had EGD with peg j tube placements at [facility] but colonoscopy was at [facility] 2020. Pt follows with cameron/onc currently on [...] Take to provider office (more content not included)...[facility] ID: [id number] Author: RASHID CLARK MD Service: Hematology/Oncology Author [...] SMV and duodenal obstruction. Patient presented to [place] ED 10/31/2024 with 1 week history of bloody diarrhea, weakness, dizziness. He also reports 2 episodes of bloody emesis. Patient initially presented to [facility] ED on 10/28/24, Hgb was 8.2. CT abd was neg. He was sent home. ED workup today: - Hgb 5.4 - Creatinine 1.3 2 units PRBCs ordered along with GI consult. 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 - S/p GJ bypass 10/29/23 - Systemic therapy with Sandostatin with Dr. Henry in [place] started 11/2023. Receives q 3 weeks. - [...] and Airways Line Duration Peripheral 10/31/24 1259 [facility] Short Right Forearm 20 Gauge <1 day [...] 95 TBILI 0.4 AST 27 ALT 16 Impression/Recommendations 1) Acute on chronic anemia - Hgb [...] q [address] Henry in [place]. - Apparently patient had CT abd at outside ED? Cannot see results but consider CT imaging. Thank you for this consult. Will continue to follow along. Dr. Clark to comment further below. Kelley Baker, CONCERT PROMOTER.CIGARETTE CARTON SEALER Hematology/Oncology Radha Tiwari/ [facility] [phone] [facility] [place], [facility] BY [facility] STAFF PHYSICIAN NOTE OF PERSONAL INVOLVEMENT (more content not included)... NormalFairview HospitalComprehensive metabolic 2000 panelon 78-36-3414Yhqroah [Mass/Vol]3.2 g/dLLow3.9-4.9[place] HospitalComment on above:Order Comment: Specimen Type: BLOOD SPECIMEN [facility] Address: [address] [place], [place] [address]Performed By: #### 83486-6 #### [facility] CLIA [id number] [address] [place] [address] [place] OF AMERICAALP [Catalytic activity/Vol]95 U/L Ukffdg15-881Faaibroz HospitalComment on above:Order Comment: Specimen Type: BLOOD SPECIMEN [facility] Address: [address] [place], [place] [address]Performed By: #### 30425-5 #### [facility] CLIA [id number] [address] [place] [address] [place] OF AMERICAALT [Catalytic activity/Vol]16 U/L Qhrraq19-65Bbjthjuo HospitalComment on above:Order Comment: Specimen Type: BLOOD SPECIMEN [facility] Address: [address] [place], [place] [address]Performed By: #### 73111-6 #### [facility] CLIA [id number] [address] [place] [address] [place] OF AMERICAAnion gap [Moles/Vol]13 mmol/LNormal 8-15[place] HospitalComment on above:Order Comment: Specimen Type: BLOOD SPECIMEN [facility] Address: [address] [place], [place] [address]Performed By: #### 52746-8 #### [facility] CLIA [id number] [address] [place] [address] [place] OF AMERICAAST [Catalytic activity/Vol]27 U/L Ctkbxo06-17Sudoqmwt HospitalComment on above:Order Comment: Specimen Type: BLOOD SPECIMEN [facility] Address: [address] [place], [place] [address]Performed By: #### 58590-1 #### [facility] CLIA [id number] [address] [place] [address] [place] AMERICABilirubin [Mass/Vol]0.4 mg/dLNormal 0.2-1.3Fmelrosewakefield hospital HospitalComment on above:Order Comment: Specimen Type: BLOOD SPECIMEN [facility] Address: [address] [place], [place] [address]Performed By: #### 24264-9 #### [facility] CLIA [id number] [address] [place] [address] [place] AMERICACalcium [Mass/Vol]7.9 mg/dLLow 8.5-10.2Fmelrosewakefield hospital HospitalComment on above:Order Comment: Specimen Type: BLOOD SPECIMEN [facility] Address: [address] [place], [place] [address]Performed By: #### 02534-4 #### [facility] CLIA [id number] [address] [place] [address] [place] AMERICAChloride [Moles/Vol]104 mmol/LNormal 98-107[facility] HospitalComment on above:Order Comment: Specimen Type: BLOOD SPECIMEN [facility] Address: [address] [place], [place] [address]Performed By: #### 52767-9 #### [facility] CLIA [id number] [address] [place] [address] [place] AMERICACO2 [Moles/Vol]19 mmol/XVqa41-08 [facility], DevensComment on above:Order Comment: Specimen Type: BLOOD SPECIMEN [facility] Address: [address] [place], [place] [address]Performed By: #### 72155-9 #### [facility] CLIA [id number] [address] [place] [address] [place] AMERICACreatinine [Mass/Vol]1.30 mg/dLHigh 0.73-1.22[facility] HospitalComment on above:Order Comment: Specimen Type: BLOOD SPECIMEN [facility] Address: [address] [place], [place] [address]Performed By: #### 67910-9 #### [facility] CLIA [id number] [address] [place] [address] [place] AMERICACreatinine and Glomerular filtration rate.predicted panel (S/P/Bld)59 mL/min/1.73m???Low>=60FaHudson HospitalComment on above:Order Comment: Specimen Type: BLOOD SPECIMEN [facility] Address: [address] [place], [place] [address]Result Comment: Estimated Glomerular Filtration Rate (eGFR) is calculated using the 2020 CKD-EPI cre atinine equation. This equation utilizes serum creatinine, sex, and age as parameters. The creatinine assay has traceable calibration to isotope dilution- mass spectrometry. Refer to KDIGO guidelines for clinical interpretation. In patients with unstable renal function, e.g. those with acute kidney injury, the eGFR may not accurately reflect actual GFR.Performed By: #### 46490-7 #### [facility] CLIA [id number] [place] [address] [place] AMERICAGlucose [Mass/Vol]118 mg/hEKplq92-82 [facility] Hospitalment on above:Order Comment: Specimen Type: BLOOD SPECIMEN [facility] Address: [address] [place], [place] [address]Result Comment: The [place] Diabetes Association (ADA) provides guidance for cutoff [...] Standards of Medical Care in Diabetes 2016, [place] Diabetes Association. Diabetes Care. 2016.39(Suppl 1).Performed By: #### 53120-8 #### [facility] CLIA [id number] [place] [address] [place] AMERICAPotassium [Moles/Vol]4.2 mmol/L Normal3.7-5.1FPr[facility] Clinic / [facility] HospitalComment on above:Order Comment: Specimen Type: BLOOD SPECIMEN [facility] Address: [address] [place], [place] [address]Performed By: #### 84020-8 #### [facility] CLIA [id number] [address] [place] [address] [place] AMERICAProtein [Mass/Vol]5.5 g/dLLow6.3-8.0 [facility] on above:Order Comment: Specimen Type: BLOOD SPECIMEN [facility] Address: [address] [place], [place] [address]Performed By: #### 34182-6 #### [facility] CLIA [id number] [place] [address] [place] AMERICASodium [Moles/Vol]136 mmol/LNormal 136-144[facility], DevensCombeaumont hospital on above:Order Comment: Specimen Type: BLOOD SPECIMEN [facility] Address: [address] [place], [place] [address]Performed By: #### 88600-8 #### [facility] CLIA [id number] [address] [place] [address] [place] AMERICAUrea nitrogen [Mass/Vol]23 mg/dL Normal9-24[facility] on above:Order Comment: Specimen Type: BLOOD SPECIMEN [facility] Address: [address] [place], [place] [address]Performed By: #### 34836-2 #### [facility] CLIA [id number] [address] [place] [address] [place] OF AMERICAED NOTEon 86-05-0071SV NOTEHNO ID: [id number] Author: KATIUSKA KEENE, LUCILLE Service: ? Author Type: Registered Nurse Type: ED Notes Filed: 10/31/2024 11:37 Note Text: Bed: 26-ED Expected date: Expected time: [facility] of arrival: [facility] NOTEon 24-31-0621GE PROV NOTEHNO ID: [id number] Author: KAVITA THOMAS MD Service: Emergency Medicine [...] pain, lightheadedness and palpitations. Was seen at [facility]'s ED 3 days ago and had labs/CT done. stats that all he was told was that he was anemic and he should come to the [facility] to have further work-up done. He [...] to get a PET (more content not included)...[facility] 95-49-3639MihxrubicuolyqeraWvkrgufmqta Rate : 75 BPM Atrial Rate : 75 BPM P-R Interval : 168 ms QRS Duration : 98 ms Q-T Interval : 371 ms QTC Calculation(Bazett) : 415 ms Calculated P Breckenridge : 50 degrees Calculated R Breckenridge : -8 degrees Calculated T Breckenridge : 9 degrees Sinus rhythm Low voltage, precordial leads Otherwise Normal ECG No significant change was found Confirmed by MD THOMAS TODD SAMUEL ([id number]) on 10/31/2024 12:42:55 PM NAME : AISHA JULIEN PID : [id number] : 1955 Gender : Male Race : [...] Referred By : , Acquired by : [id number],[facility] HospitalHISTORY PHYSICALon 10-31-2024 HISTORY PHYSICALHNO ID: [id number] Author: RIVERA PIPER PA-C Service: General Internal Medicine Author Type: Physician Registration Manager Type: H&P Filed: 10/31/2024 15:07 Note Text: Department of Internal Medicine HISTORY AND PHYSICAL EXAMINATION SERVICE DATE: 10/31/2024 SERVICE TIME: 3:01 PM PRIMARY CARE PHYSICIAN: Rene Cannon MD, MD CONTACT COVERAGE: See Treatment Team and contact assigned JARRED. If no JARRED assigned: -5N/5W/5PAV/6th floor/2S or ED Hold, page DEYSI House Team A: [phone] -[facility] lopez JO House Team B: [phone] Subjective CHIEF COMPLAINT: GI bleed HPI: Mr. [...] CKD stage 3a. He initially went to [facility] ED on 10/28 where Hb as 8.2. [...] 2 episodes of bloody emesis. Went to [facility] ED 4 days ago and hb was 8.2. Also experiencing sxs of fatigue, dyspnea, and occ dizzyness. 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 Plan: -ordered RBC transfusion of 2units. -GI on consult, appreciate recs. -IVF -NPO after midnight-Hgb on arrival and o9fevmy x 24 hours. -Monitor stool color and volume. -Transfuse again if Hgb <7 and patient symptomatic. -IV Protonix BID. -GI consulted; awaiting recommendations. Neuroendocrine tumor Pt in care with oncologist Dr. Roselyn Leonard. Most recent PET scan was Jul 2024. Since provider does not round at [place] will place consult with [facility] heme/onc for eval and recommendations. Anemia Pt with a Hb of 5.7. ot (more content not included)...NormalFederal [facility], Devens Iron and Iron binding capacity panelon 24-54-8031Kfzu [Mass/Vol]18 ug/dLLow 41-186[facility], DevensComment on above:Order Comment: Specimen Type: BLOOD SPECIMEN [facility] Address: [address] [place], [place] [address]Performed By: #### 65681-5 #### [facility] CLIA [id number] [address] [place], [place] [address]Iron binding capacity [Mass/Vol] NormalFederal Medical Center, DevensCombeaumont hospital on above:Order Comment: Specimen Type: BLOOD SPECIMEN [facility] Address: [address] [place], [place] [address]Result Comment: Unable to assay due to interference from hemolysis. Suggest reorder as clinically indicated. Performed By: #### 76292-9 #### [facility] CLIA [id number] [address] [place] [address] STATES OF MAGRUDER HOSPITALIron/TIBC [Molar ratio]Normal [facility] DevensCombeaumont hospital on above:Order Comment: Specimen Type: BLOOD SPECIMEN [facility] Address: [address] [place] [address] Comment: Unable to assay due to interference from hemolysis. Suggest reorder as clinically indicated. Performed By: #### 56682-5 #### [facility] CLIA [id number] [address] [place] [address] [place] OF MAGRUDER HOSPITALLD SerPl-cCncon 71-00-3176MQC [Catalytic activity/Vol]231 U/CSvzg511-181Enbvxwjh HospitalCombeaumont hospital on above: Order Comment: Specimen Type: BLOOD SPECIMEN [facility] Address: [address] [place], [place] [address]Result Comment: Hemolysis present. The origin of the hemolysis, in vitro versus an in vivo hemolytic process, cannot be distinguished via this assay alone. In vitro hemolysis may lead to non-physiological (spurious) elevation in lactate dehydrogenase (LDH) results. The result should be interpreted in context of the clinical setting and other test results. Suggest reorder as clinically indicated.Performed By: #### 39394-6, 21929-2 #### [facility] CLIA [id number] [address] [place] [address] [place] AMERICALipase SerPl-cCncon 30-52-7574Oqfgkd [Catalytic activity/Vol]49 U/UBzjnhb01-71Hytdsxur HospitalComment on above:Order Comment: Specimen Type: BLOOD SPECIMEN [facility] Address: [address] [place], [place] [address]Performed By: #### 31365-6 #### [facility] CLIA [id number] [address] [place] [id number] [place] STATES OF AMERICANURSING PROGon 99-31-7110VZXKFZW PROGHNO ID: [id number] Author: CIARAN FLOYD RN Service: Nursing Author Type: Registered Nurse Type: Nursing Progress Note Filed: 10/31/2024 14:28 Note Text: Transfer Note: PATIENT NAME: Aisha Julien Patient Location: [place] [address] [address] Room: [place] [address] Patient transferred into room/unit 541 in stable condition. Actions taken: No futher actions taken at this time. Will continue to monitor and check with patient.NormalKenmore Hospital #on 31-82-7221Lzqrskdemkmkc (Bld) [#/Vol] 0.61210 10*3/uLHigh0.018-0.100[place] HospitalComment on above:Order Comment: Specimen Type: BLOOD SPECIMEN [facility] Address: [address] [place], [place] [address]Performed By: #### 72666-7, 54502-9 #### [facility] CLIA [id number] [address] [place] [id number] [place] OF AMERICAReticulocytes (Bld) [#/Vol]on 03-57-1879Ppsisckawgavi/100 RBC (Bld)6.9 %High0.4-2.0[place] HospitalComment on above:Order Comment: Specimen Type: BLOOD SPECIMEN [facility] Address: [address] [place], [place] [address]Performed By: #### 74328-5, 52689-6 #### [facility] CLIA [id number] [address] [place] [address] [place] OF MAGRUDER HOSPITALTS SerPl-aCncon 94-36-0387CCO Qn 1.110 m[IU]/LNormal0.270-4.200[facility] HospitalComment on above:Order Comment: Specimen Type: BLOOD SPECIMEN [facility] Address: [address] [place], [place] [address]Performed By: #### 75913-3 #### [facility] CLIA [id number] [address] [place] [address] STATES OF AMERICATYPE + SCREENon 02-76-5050JHGPYqqwwf [place] HospitalComment on above:Order Comment: Specimen Type: BLOOD SPECIMEN [facility] Address: [address] [place], [place] [address]Performed By: #### 88685-4, 26451-2 #### [facility] CLIA [id number] [address] [place] [address] [place] MONTEFIORE MEDICAL CENTERRh Nom (Bld)PositiveNoQuincy Medical Center HospitalComment on above:Order Comment: Specimen Type: BLOOD SPECIMEN [facility] Address: [address] [place], [place] [address]Performed By: #### 67226-4, 79506-4 #### [facility] CLIA [id number] [address] [place] [address] [place] OF AMERICATYPE AND SCREEN WKDLWFLXVI16/12/2025 23:59NormalMiami HospitalComment on above:Order Comment: Specimen Type: BLOOD SPECIMEN [facility] Address: [address] [place], [place] [address]Performed By: #### 96986-2, 07037-3 #### [facility] CLIA [id number] [address] [place] [address] [place] AMERICAUrinalysis complete panel (U)on 63-73-8665Ezvjhwhhc Ql (U)NegativeNormalNegativeMiami HospitalComment on above:Order Comment: Specimen Type: BLOOD SPECIMEN [facility] Address: [address] [place], [place] [address]Performed By: #### 18359-4 #### [facility] CLIA [id number] [address] [place] [address] [place] AMERICAClarity (Unsp spec)ClearNormalClear [place] HospitalComment on above:Order Comment: Specimen Type: BLOOD SPECIMEN [facility] Address: [address] [place], [place] [address]Performed By: #### 93187-3 #### [facility] CLIA [id number] [address] [place] [address] [place] AMERICAColor (U)Light YellowNormalYellow [place] HospitalComment on above:Order Comment: Specimen Type: BLOOD SPECIMEN [facility] Address: [address] [place], [place] [address]Performed By: #### 47513-3 #### [facility] CLIA [id number] [address] [place] [address] [place] AMERICAGlucose Test strip (U) [Mass/Vol] NegativeNormalTrace, NegativeFairlicking memorial hospital HospitalComment on above:Order Comment: Specimen Type: BLOOD SPECIMEN [facility] Address: [address] [place], [place] [address]Performed By: #### 45227-1 #### [facility] CLIA [id number] [address] [place] [address] [place] AMERICAHemoglobin Ql (U)NegativeNormal Negative, TraceFalawrence memorial hospital HospitalComment on above:Order Comment: Specimen Type: BLOOD SPECIMEN [facility] Address: [address] [place], [place] [address]Performed By: #### 84803-0 #### [facility] CLIA [id number] [address] [place] [address] [place] AMERICAKetones Ql (U)NegativeNormal Negative, TraceFairlicking memorial hospital HospitalComment on above:Order Comment: Specimen Type: BLOOD SPECIMEN [facility] Address: [address] [place], [place] [address]Performed By: #### 75573-0 #### [facility] CLIA [id number] [address] [place] [address] [place] OF AMERICALeukocyte esterase Test strip Ql (U) NegativeNormalNegative, 25 Angle/uLFalawrence memorial hospital HospitalComment on above:Order Comment: Specimen Type: BLOOD SPECIMEN [facility] Address: [address] [place], [place] [address]Performed By: #### 81881-6 #### [facility] CLIA [id number] [address] [place] [address] [place] AMERICANitrite Ql (U)NegativeNormalNegative [place] HospitalComment on above:Order Comment: Specimen Type: BLOOD SPECIMEN [facility] Address: [address] [place], [place] [address]Performed By: #### 34399-7 #### [facility] CLIA [id number] [address] [place] [address] [place] AMERICApH (U)5.5 [pH]Normal5.0-8.0[place] HospitalComment on above:Order Comment: Specimen Type: BLOOD SPECIMEN [facility] Address: [address] [place], [place] [address]Performed By: #### 54616-6 #### [facility] CLIA [id number] [address] [place] [address] [place] AMERICAProtein (U) [Mass/Vol]NegativeNormal Trace, NegativeFalawrence memorial hospital HospitalComment on above:Order Comment: Specimen Type: BLOOD SPECIMEN [facility] Address: [address] [place], [place] [address]Performed By: #### 17484-4 #### [facility] CLIA [id number] [address] [place] [address] [place] OF MAGRUDER HOSPITALRB LM.HPF (Urine sed) [#/Area]0-3 /HPFNormal0-3 /HPFFairlicking memorial hospital HospitalComment on above:Order Comment: Specimen Type: BLOOD SPECIMEN [facility] Address: [address] [place], [place] [address]Performed By: #### 41355-6 #### [facility] CLIA [id number] [address] [place] [address] [place] AMERICASpecific gravity (U) [Rel density] 1.140Bzxazg1.005-1.030[facility] HospitalComment on above:Order Comment: Specimen Type: BLOOD SPECIMEN [facility] Address: [address] [place], [place] [address]Performed By: #### 94100-7 #### [facility] CLIA [id number] [address] [place] [address] [place] AMERICAUrobilinogen Ql (U)NormalNormal NormalMiami HospitalComment on above:Order Comment: Specimen Type: BLOOD SPECIMEN [facility] Address: [address] [place], [place] [address]Performed By: #### 70563-7 #### [facility] [place] [id number] [address] [place] [address] [place] OF AMERICAWBC LM.HPF (Urine sed) [#/Area]0-5 /HPFNormal0-5 /HPFMiami HospitalComment on above:Order Comment: Specimen Type: BLOOD SPECIMEN [facility] Address: [address] [place], [place] [address]Performed By: #### 21864-6 #### [facility] [place] [id number] [address] [place] [address] [place] AMERICAALBUMIN, RANDOM URINE W/CREATININEon 56-00-4173GVOOABE, URINE11.0 mg/dLNormalSee Note:Quest DiagnosticsComment on above:Result Comment: Reference Range: Reference Range Not establishedPerformed By: #### 2451, 7292 #### [facility] [address], [address] [place] [address] [employer] Service Technician: Rene Grewal MDALBUMIN/CREATININE RATIO, RANDOM URINE87 mg/g creatHigh<30Quest DiagnosticsComment on above:Result Comment: The ADA defines abnormalities in albumin excretion as follows: Albuminuria Category Result (mg/g creatinine) Normal to Mildly increased <30 Moderately increased 30-299 Severely increased > OR = 300 The ADA recommends that at least two of three specimens collected within a 3-6 month period be abnormal before considering a patient to be within a diagnostic category.Performed By: #### 6517, 7600 #### [facility] [address], [address] [place] [address] Tire Service Technician: Rene CANTUreatinine (U) [Mass/Vol]127 mg/lPRvxdno65-414 [facility] DiagnosticsComment on above:Performed By: #### 6517, 7600 #### [facility] [address], [address] [place] [address] Tire Service Technician: Rene Grewal MDLIPID PANEL, STANDARD 01-51-6696Kwvmqszhkyn [Mass/Vol]158 mg/dLNormal<200Quest DiagnosticsComment on above:Order Comment: FASTING:YES FASTING: YESPerformed By: #### 6517, 7600 #### [facility] [address], [address] [place] [address] Tire Service Technician: Rene CANTUholesterol in HDL [Mass/Vol]99 mg/dLNormal> OR = 40Quest DiagnosticsComment on above:Order Comment: FASTING:YES FASTING: YESPerformed By: #### 6517, 7600 #### [facility] [address], [address] [place] [address] Tire Service Technician: Rene Grewal MDCholesterol in LDL [Mass/Vol]46 mg/dLNormal [facility]osticsComment on above:Order Comment: FASTING:YES FASTING: YESResult Comment: Reference range: <100 Desirable range <100 mg/dL for primary prevention; <70 mg/dL for patients with CHD or diabetic patients with > or = 2 CHD risk factors. LDL-C is now calculated using the Issac-Lr calculation, which is a validated novel method providing better accuracy than the Friedewald equation in the estimation of LDL-C. Issac JOHNSON et al. FERNANDO. 2013;310(19): 6298-0207 (http://education.[employer]/faq/TVR651)Performed By: #### 6517, 7600 #### [facility] [address], [address] [place] [address] Tire Service Technician: Rene CANTUholesterol.total/Cholesterol in HDL [Mass ratio]1.6 {ratio}Normal<5.0Quest DiagnosticsComment on above:Order Comment: FASTING:YES FASTING: YESPerformed By: #### 6517, 7600 #### [facility] [address], [address] [place] [address] Tire Service Technician: Rene NORIEGA HDL NFQGSBMXKJV30 mg/dL (calc)Normal<130 [facility] DiagnosticsComment on above:Order Comment: FASTING:YES FASTING: YESResult Comment: For patients with diabetes plus 1 major ASCVD risk factor, treating to a non-HDL-C goal of <100 mg/dL (LDL-C of <70 mg/dL) is considered a therapeutic option.Performed By: #### 6517, 7600 #### [facility] [place] [address] Tire Service Technician: Rene Grewal MDTriglyceride [Mass/Vol]51 mg/dLNormal<150Quest DiagnosticsComment on above:Order Comment: FASTING:YES FASTING: YESPerformed By: #### 6517, 7600 #### [facility] [address], [address] [place] [address] Tire Service Technician: Rene Grewal MDAlanine aminotransferase [Enzymatic activity/volume] in Serum or PlasmaOrdered By: Marily Romero on 11-91-8044WVX [Catalytic activity/Vol]Alanine aminotransferase [Enzymatic activity/volume] in Serum or Plasma[address] [place], [place] [address]Albumin [Mass/volume] in Serum or Plasma by Bromocresol green (BCG) dye binding methoOrdered By: Marily Romero on 32-68-6139Okfxcnj BCG dye [Mass/Vol]Albumin [Mass/volume] in Serum or Plasma by Bromocresol green (BCG) dye binding metho3.5-5.7FRegency Hospital Cleveland WestAlkaline phosphatase [Enzymatic activity/volume] in Serum or PlasmaOrdered By: Marily Romero on 97-71-1389JTO [Catalytic activity/Vol]Alkaline phosphatase [Enzymatic activity/volume] in Serum or Oxknqa31-294OwbxthnyaAdena Regional Medical CenterAmmoniaon 48-72-2386Dasdsba (P) [Moles/Vol]34 umol/L Nbijvn32-44Lsr [facility] Physician GroupComment on above:Result Comment: PERFORMED BY: [place] [address] PATHOLOGIST COPPER PLATE LITHOGRAPHER KAYE NUNEZ M.D.Performed By: #### CBC #### [facility] [address] [place] [address] USAAmmonia [Moles/volume] in PlasmaOrdered By: Darrius Brown on 26-32-1114Ytugdix (P) [Moles/Vol]Ammonia [Moles/volume] in Aaofkn79-88AkwbmzhwdAdena Regional Medical CenterAmylaseon 53-57-9363Yjyvzzq [Catalytic activity/Vol]33 U/VCvvfml14-717Cio [facility] Physician GroupComment on above:Performed By: #### PTT, XIN, MG, CMP, PT, LIPASE #### [facility] [address] [place] [address] USAAmylase [Enzymatic activity/volume] in Serum or Plasma Ordered By: Darrius Brown on 63-99-4109Qioxfjx [Catalytic activity/Vol]Amylase [Enzymatic activity/volume] in Serum or Rznghk31-948ShchzhiwgAdena Regional Medical CenterAppearance of UrineOrdered By: Marily Romero on 15-96-0444Krprsiunnp (U) Urine appearanceCleSelect Medical Cleveland Clinic Rehabilitation Hospital, Edwin ShawAspartate aminotransferase [Enzymatic activity/volume] in Serum or PlasmaOrdered By: Marily Romero on 07-02-4714MPF [Catalytic activity/Vol]Aspartate aminotransferase [Enzymatic activity/volume] in Serum or Qhatmd28-76FwnpvppghAdena Regional Medical Center Basophils Auto (Bld) [#/Vol]Ordered By: Marily Romero on 33-47-1239Yjiazbdow (Bld) [#/Vol]Automated basophil count0.0-0.2FRegency Hospital Cleveland West Basophils/100 WBC Auto (Bld)Ordered By: Marily Romero on 53-47-6415Wqxvptqrc/100 WBC (Bld)Automated basophil %.[facility] Medical CenterBilirubin Test strip Ql (U)Ordered By: Marily Romero on 70-33-4075Vjsjakhnj Ql (U)Bilirubin.total [Presence] in Urine by Test stripNegativeAdena Regional Medical Center Bilirubin.total [Mass/volume] in Serum or PlasmaOrdered By: Marily Romero on 14-32-3672Toyigrfjz [Mass/Vol]Bilirubin.total [Mass/volume] in Serum or Plasma 0.3-1.0[facility] Medical CenterCT abdomen pelvis w conon 85-70-1155MI abdomen pelvis w [facility] [place] [address] CT Scan Report Signed Patient: Aisha Julien MR#: [id number] 79 : 1955 Acct:[id number] Age/Sex: 69 / M ADM Date: 10/28/24 Loc: ER Room: Type: [facility] ER Attending Dr: Copies to: Do Darrius Ramos MD, RES Ordering Provider: Darrius Brown MD, RES Date of Service: 10/28/24 CT/CT abdomen pelvis w con: GI bleed ([id number]) CT/CT chest w con: cough, black emesis [...] Génesis West M.D.10/28/2024 3:32 PM Dictation Location: [place] [address] Transcribed By: [facility] 10/28/24 1532 Dictated By: Génesis West MD 10/28/24 1507 Signed By: 10/28/24 1532[facility] Physician GroupCalcium [Mass/volume] in Serum or PlasmaOrdered By: Marily Romero on 81-55-3359Hylofow [Mass/Vol]Calcium [Mass/volume] in Serum or PlasmaLow8.6-10.3FRegency Hospital Cleveland West Carbon dioxide, total [Moles/volume] in Serum or PlasmaOrdered By: Marily Romero on 91-69-9398KC2 [Moles/Vol]Carbon dioxide, total [Moles/volume] in Serum or Eiztth25.0-31.0[facility] Medical CenterChloride [Moles/volume] in Serum or PlasmaOrdered By: Marily Romero on 79-04-6309Qfxuvxtr [Moles/Vol]Chloride [Moles/volume] in Serum or XbxvaiPjmv66-980EkmpaxoshAdena Regional Medical Center Color Auto (U)Ordered By: Marily Romero on 10-46-3742Wjqib (U)Color of Urine by AutoYellowAdena Regional Medical CenterComplete Blood Count Auto Diffon 00-16-3244Ppvdcecto (Bld) [#/Vol]0.0 10*3/uLNormal0.0-0.2The [facility] Physician GroupComment on above:Result Comment: PERFORMED BY: [place] [address] PATHOLOGIST COPPER PLATE LITHOGRAPHER KAYE NUNEZ M.D.Performed By: #### CBC #### [facility] [address] [place] [address] USABasophils/100 WBC (Bld)0.6 %Normal.The [facility] Physician GroupComment on above:Performed By: #### CBC #### [facility] [address] [place] [address] USAEosinophils (Bld) [#/Vol]0.1 10*3/uLNormal0.0-0.45The [facility] Physician GroupComment on above:Performed By: #### CBC #### [facility] [address] [place] [address] USAEosinophils/100 WBC (Bld)0.8 %Normal.The [facility] Physician GroupComment on above:Performed By: #### CBC #### [facility] [address] [place] [address] USAErythrocyte distribution width (RBC) [Ratio]13.8 %Normal 12.0-14.8The [facility] Physician GroupComment on above:Performed By: #### CBC #### [facility] [address] [place] [address] USAHematocrit (Bld) [Volume fraction]24.3 %Low38.8-50.0The [facility] Physician GroupComment on above:Performed By: #### CBC #### [facility] [address] [place] [address] USAHemoglobin (Bld) [Mass/Vol]8.2 g/dLLow13.0-17.0The [facility] Physician GroupComment on above:Performed By: #### CBC #### [facility] [address] [place] [address] USALymphocytes (Bld) [#/Vol]0.5 10*3/uLLow1.00-4.8The [facility] Physician GroupComment on above:Performed By: #### CBC #### [facility] [address] [place] [address] USALymphocytes/100 WBC (Bld)6.9 %Normal.The [facility] Physician GroupComment on above:Performed By: #### CBC #### [facility] [address] [place] [address] USAMCH (RBC) [Entitic mass]31.3 zoHtmqbz34.5-35.2The [facility] Physician GroupComment on above:Performed By: #### CBC #### [facility] [address] [place] [address] USAMCV (RBC) [Entitic vol]93.1 cEIfjufv43.5-101The [facility] Physician GroupComment on above:Performed By: #### CBC #### [facility] [address] [place] [address] USAMean Corpuscular HGB Conc33.6 g/lHLighox28.5-35.6The [facility] Physician GroupComment on above:Performed By: #### CBC #### [facility] [address] [place] [address] USAMonocytes (Bld) [#/Vol]0.9 10*3/uLHigh0.0-0.8The [facility] Physician GroupComment on above:Performed By: #### CBC #### [facility] [address] [place] [address] USAMonocytes/100 WBC (Bld)17.29 %Normal0.00-20.00The [facility] Physician GroupComment on above:Performed By: #### CBC #### [facility] [address] [place] [address] USAMonocytes/100 WBC (Bld)11.6 %Normal.The [facility] Physician GroupComment on above:Performed By: #### CBC #### [facility] [address] [place] [address] USANeutrophils (Bld) [#/Vol]6.1 10*3/uLNormal1.8-7.7The [facility] Physician GroupComment on above:Performed By: #### CBC #### [facility] [address] [place] [address] USANeutrophils/100 WBC (Bld)80.1 %Normal.The [facility] Physician GroupComment on above:Performed By: #### CBC #### [facility] [address] [place] [address] USANRBC%0.0 /100{WBC}Normal0-0.5The [facility] Comment on above:Performed By: #### CBC #### [facility] [address] [place] [address] USAPlatelet mean volume (Bld) [Entitic vol]9.1 fLNormal 6.6-10.1The [facility] Physician GroupComment on above:Performed By: #### CBC #### [place] [address] USAPlatelets (Bld) [#/Vol]182 10*3/wXUjpwdl210-413Brn [facility] Physician GroupComment on above:Performed By: #### CBC #### [place] [address] USARBC (Bld) [#/Vol]2.61 10*6/uLLow3.90-5.60The [facility] Physician GroupComment on above:Performed By: #### CBC #### [place] [address] USAWBC (Bld) [#/Vol]7.6 10*3/uLNormal4.1-10.5The [facility] Physician GroupComment on above:Performed By: #### CBC #### [place] [address] USAComprehensive Metabolic Panelon 23-69-9287Xjdfefy [Mass/Vol]3.6 g/dLNormal3.5-5.7The [facility] Physician GroupComment on above: Performed By: #### PTT, XIN, MG, CMP, PT, LIPASE #### [place] [address] USAAlbumin/Globulin [Mass ratio]1.5 {ratio}NormalThe [facility] Physician GroupComment on above:Performed By: #### PTT, XIN, MG, CMP, PT, LIPASE #### [place] [address] USAALP [Catalytic activity/Vol]98 U/UKhfhhg82-352Kvn [facility] Physician GroupComment on above:Performed By: #### PTT, XIN, MG, CMP, PT, LIPASE #### [place] [address] USAALT [Catalytic activity/Vol]13 U/LNormal7-52The [facility] Physician GroupComment on above:Performed By: #### PTT, XIN, MG, CMP, PT, LIPASE #### [place] [address] USAAnion gap [Moles/Vol]1.4 mmol/LLow6.0-15.0The [facility] Physician GroupComment on above:Performed By: #### PTT, XIN, MG, CMP, PT, LIPASE #### [facility] [address] [place] [address] USAAST [Catalytic activity/Vol]23 U/IArwygu74-22Ryf [facility] Physician GroupComment on above:Performed By: #### PTT, XIN, MG, CMP, PT, LIPASE #### [facility] [address] [place] [address] USABilirubin [Mass/Vol]0.7 mg/dLNormal0.3-1.0The [facility] Physician GroupComment on above:Performed By: #### PTT, XIN, MG, CMP, PT, LIPASE #### [place] [address] USACalcium [Mass/Vol]8.1 mg/dLLow8.6-10.3The [facility] Physician GroupComment on above:Performed By: #### PTT, XIN, MG, CMP, PT, LIPASE #### [place] [address] USAChloride [Moles/Vol]112 mmol/RJjtq06-920Wfl [facility] Physician GroupComment on above:Performed By: #### PTT, XIN, MG, CMP, PT, LIPASE #### [place] [address] USACO2 [Moles/Vol]22.7 mmol/HSfqtsq96.0-31.0The [facility] Physician GroupComment on above:Performed By: #### PTT, XIN, MG, CMP, PT, LIPASE #### [facility] [address] [place] [address] USACreatinine [Mass/Vol]1.11 mg/dLNormal0.70-1.30The [facility] Physician GroupComment on above:Performed By: #### PTT, XIN, MG, CMP, PT, LIPASE #### [place] [address] USACreatinine Clr Calc Woucqkae66.81NormalThe [facility] Physician GroupComment on above:Performed By: #### PTT, XIN, MG, CMP, PT, LIPASE #### [place] [address] USAGFR/1.73 sq M.predicted MDRD (S/P/Bld) [Vol rate/Area] mL/min/{1.73_m2}NormalThe [facility] Physician GroupComment on above:Performed By: #### PTT, XIN, MG, CMP, PT, LIPASE #### [facility] [address] [place] [address] USAGlobulin (S) [Mass/Vol]2.4 g/dLBroward Health Imperial Point Physician GroupComment on above:Performed By: #### PTT, XIN, MG, CMP, PT, LIPASE #### [place] [address] USAGlucose [Mass/Vol]109 mg/gMTeia66-513Jii [facility] Physician GroupComment on above:Result Comment: Random Glucose Reference Range is dependent on time and content of last meal. Glucose of more than 200 mg/dL in a nonstressed, ambulatory subject supports the diagnosis of Diabetes Mellitus. ADA recommended reference rangePerformed By: #### PTT, XIN, MG, CMP, PT, LIPASE #### [place] [address] USAPotassium [Moles/Vol]4.1 mmol/LNormal3.5-5.1The [facility] Physician GroupComment on above:Performed By: #### PTT, XIN, MG, CMP, PT, LIPASE #### [place] [address] USAProtein [Mass/Vol]6.0 g/dLLow6.4-8.9The [facility] Physician GroupComment on above:Performed By: #### PTT, XIN, MG, CMP, PT, LIPASE #### [place] [address] USASodium [Moles/Vol]132 mmol/HFbu850-736Ley [facility] Physician GroupComment on above:Performed By: #### PTT, XIN, MG, CMP, PT, LIPASE #### [facility] [address] [place] [address] USAUrea nitrogen [Mass/Vol]30 mg/dLSummers County Appal[facility] [place] [address] Physician GroupComment on above:Performed By: #### PTT, XIN, MG, CMP, PT, LIPASE #### [facility] [address] [place] [address] USACreatinine [Mass/volume] in Serum or PlasmaOrdered By: Marily Romero on 74-08-6088Naungfneup [Mass/Vol]Creatinine [Mass/volume] in Serum or Plasma0.70-1.30[facility] Medical CenterECG 12 lead ECGon 10-28-2024 ECG 12 lead ECGTR[facility] [place] [address] [place] [address] Electrocardiograph Report Signed Patient: Aisha Julien MR#: [id number] 79 : 1955 Acct:[id number] Age/Sex: 69 / M ADM Date: 10/28/24 Loc: ER Room: Type: [facility] ER Attending Dr: Ordering Provider: Marily Romero [...] MUS Signed By Marily Romero Do 5 1404NormTriHealth Bethesda Butler Hospitale [facility] Physician GroupEosinophils Auto (Bld) [#/Vol]Ordered By: Marily Romero on 93-49-9484Diwxktjxghk (Bld) [#/Vol]Automated eosinophil count 0.0-0.45[facility] CenterEosinophils/100 WBC Auto (Bld)Ordered By: Marily Romero on 27-53-6026Duitmwlrcho/100 WBC (Bld)Automated eosinophil %. [facility] CenterErythrocyte distribution width Auto (RBC) [Ratio]Ordered By: Marily Romero on 92-37-9140Mjjhrjmycpx distribution width (RBC) [Ratio]Erythrocyte distribution width [Ratio] by Automated count12.0-14.8 [facility] CenterGlobulin Calc (S) [Mass/Vol]Ordered By: Marily Romero 74-55-6619Lfgqpfyc (S) [Mass/Vol]Serum globulin measurement by calculation (mass/volume)[facility] CenterGlucose [Mass/volume] in Serum or PlasmaOrdered By: Marily Romero on 07-44-7529Adtdbom [Mass/Vol]Glucose [Mass/volume] in Serum or XayvwyRoqf56-838RcybshkmlAdena Regional Medical Center Comment on above:ADA recommended reference rangeRandom Glucose Reference Range is dependent on time and content of last meal. Glucose of more than 200 mg/dL in a nonstressed, ambulatory subject supports the diagnosisof Diabetes Mellitus. Glucose [Mass/volume] in Urine by Test stripOrdered By: Marily Romero 72-43-1888Udkpdxm Test strip (U) [Mass/Vol]Glucose [Mass/volume] in Urine by Test stripNormalAdena Regional Medical CenterHematocrit Auto (Bld) [Volume fraction]Ordered By: Marily Romero 05-16-1221Plkcovxhxh (Bld) [Volume fraction] Hematocrit [Volume Fraction] of Blood by Automated ttwzeHyw50.8-50.0[facility] CenterHemoglobin Test strip Ql (U)Ordered By: Marily Romero 82-53-7339Cykwwjwtxy Ql (U)Hemoglobin [Presence] in Urine by Test stripNegative [facility] CenterHemoglobin [Mass/volume] in BloodOrdered By: Marily Romero 11-35-5313Iyjcwlmgpe (Bld) [Mass/Vol]Hemoglobin [Mass/volume] in JcbpeUuh12.0-17.0[facility] CenterINR in Platelet poor plasma by Coagulation assayOrdered By: Marily Romero 48-62-6653TOY Coag (PPP) [Relative time]INR in Platelet poor plasma by Coagulation assayAdena Regional Medical CenterComment on above:INR Therapeutic Range A) Pre- and Peroperative OAT started two weeks before surgery. NOT HIP SURGERY: 1.5 - 2.5 HIP SURGERY: 2 - 3B) Primary and secondary prevention of venous THROMBOSIS: 2 - 3C) Active venous thrombosis, pulmonary embolismand prevention of recurrent venous thrombosis: 2 - 3D) Prevention of arterial thromboembolismincluding patients with mechanical heart valves: 3 - 4.5Ketones Test strip Ql (U)Ordered By: Marily Romero on 31-82-2018Fisvhot Ql (U)Ketones [Presence] in Urine by Test stripHighNegative [facility] CenterLeukocyte esterase [Presence] in Urine by Test stripOrdered By: Marily Romero on 80-34-2282Chvaperyw esterase Test strip Ql (U) Leukocyte esterase [Presence] in Urine by Test stripNegativeAdena Regional Medical CenterLeukocytes [#/volume] corrected for nucleated erythrocytes in Blood by Automated counOrdered By: Marily Romero on 43-94-5870AHS corrected for nucl RBC Auto (Bld) [#/Vol]Leukocytes [#/volume] corrected for nucleated erythrocytes in Blood by Automated coun4.1-10.5FRegency Hospital Cleveland West Lipaseon 36-21-9530Gkqcms [Catalytic activity/Vol]68.0 U/BHrpyuj05.0-82.0The [facility] Physician GroupComment on above:Result Comment: PERFORMED BY: [place] [address] PATHOLOGIST COPPER PLATE LITHOGRAPHER KAYE NUNEZ M.D.Performed By: #### PTT, XIN, MG, CMP, PT, LIPASE #### [place] [address] USALipase [Enzymatic activity/volume] in Serum or Plasma Ordered By: Marily Romero on 24-35-2750Hwnnvc [Catalytic activity/Vol]Lipase [Enzymatic activity/volume] in Serum or Hlclto99.0-82.0[facility] CenterLymphocytes Auto (Bld) [#/Vol]Ordered By: Marily Romero on 47-33-8541Zsmmysjverz (Bld) [#/Vol]Lymphocytes [#/volume] in Blood by Automated countLow1.00-4.8[facility] CenterLymphocytes/100 WBC Auto (Bld) Ordered By: Marily Romero on 76-01-8822Xtytmuxumzc/100 WBC (Bld)Lymphocytes/100 leukocytes in Blood by Automated count.[facility] Medical CenterMCH Auto (RBC) [Entitic mass]Ordered By: Marily Romero on 61-40-6950PVZ (RBC) [Entitic mass]MCH [Entitic mass] by Automated count27.5-35.2FRegency Hospital Cleveland WestMCHC Auto (RBC) [Mass/Vol]Ordered By: Marily Romero on 66-03-2909ZIAM (RBC) [Mass/Vol]MCHC [Mass/volume] by Automated count32.5-35.6FRegency Hospital Cleveland WestMCV Auto (RBC) [Entitic vol]Ordered By: Marily Romero on 10-28-2024 MCV (RBC) [Entitic vol]MCV [Entitic volume] by Automated count83.5-101[facility] CenterMagnesiumon 23-96-9195Wurawvtyd [Mass/Vol]1.8 mg/dLLow 1.9-2.7The [facility] Physician GroupComment on above:Performed By: #### PTT, XIN, MG, CMP, PT, LIPASE #### [place] [address] USAMagnesium [Mass/volume] in Serum or PlasmaOrdered By: Darrius Brown on 99-43-0556Mphzxhfhn [Mass/Vol]Magnesium [Mass/volume] in Serum or PlasmaLow1.9-2.7FRegency Hospital Cleveland WestMonocyte distribution width [Entitic volume] in Blood by AutomatedOrdered By: Marily Romero on 10-28-2024 Monocyte distribution width Auto (Bld) [Entitic vol]Monocyte distribution width [Entitic volume] in Blood by Automated0.00-20.00[facility] CenterMonocytes Auto (Bld) [#/Vol]Ordered By: Marily Romero on 73-02-5272Irwysvcnd (Bld) [#/Vol]Automated blood monocyte countHigh0.0-0.8[facility] CenterMonocytes/100 WBC Auto (Bld)Ordered By: Marily Romero on 10-28-2024 Monocytes/100 WBC (Bld)Automated monocyte %.[facility] Neutrophils Auto (Bld) [#/Vol]Ordered By: Marily Romero on 74-72-9447Godgicfredd (Bld) [#/Vol]Neutrophils [#/volume] in Blood by Automated count1.8-7.7FRegency Hospital Cleveland WestNeutrophils/100 WBC Auto (Bld)Ordered By: Marily Romero on 11-75-3283Pfvxchuoypg/100 WBC (Bld)Automated neutrophil %.[facility] CenterNitrite Test strip Ql (U)Ordered By: Marily Romero on 10-28-2024 Nitrite Ql (U)Nitrite [Presence] in Urine by Test stripNegativeAdena Regional Medical CenterNo Panel InformationOrdered By: Marily Romero on 10-28-2024 Estimated GFR (CKD-EPI)> 60.0 mL/MinAdena Regional Medical CenterPharmacy Creatinine Clearance (Chem62.81[facility] CenterNucleated erythrocytes [Presence] in Blood by Automated countOrdered By: Marily Romero on 55-39-9514Uzvkyugnk RBC Auto Ql (Bld)Nucleated erythrocytes [Presence] in Blood by Automated count0-0.5FRegency Hospital Cleveland WestPartial Thromboplastin Timeon 19-97-9262aXXV Coag (Bld) [Time]26.2 pGkzugq90.1-36.5The [facility] Physician GroupComment on above:Result Comment: A hematocrit value greater than 55% may lead to inaccurate results in coagulation testing. Patients having hematocrit values >55% require a special collection tube for coagulation studies. Please contact the laboratory at [phone] for redraw instructions. PERFORMED BY: [address] [place] [address] PATHOLOGIST COPPER PLATE LITHOGRAPHER KAYE NUNEZ M.D.Performed By: #### PTT, XIN, MG, CMP, PT, LIPASE #### [place] [address] USAPlatelet mean volume Auto (Bld) [Entitic vol]Ordered By: Marily Romero on 21-04-9776Qifcchtc mean volume (Bld) [Entitic vol]Platelet mean volume [Entitic volume] in Blood by Automated count6.6-10.1FRegency Hospital Cleveland WestPlatelets Auto (Bld) [#/Vol]Ordered By: Marily Romero on 10-28-2024 Platelets (Bld) [#/Vol]Platelets [#/volume] in Blood by Automated oyxba326-405 [facility] CenterPotassium [Moles/volume] in Serum or Plasma Ordered By: Marily Romero on 48-93-4442Hxtcjnynn [Moles/Vol]Potassium [Moles/volume] in Serum or Plasma3.5-5.1FRegency Hospital Cleveland WestProtein Test strip (U) [Mass/Vol]Ordered By: Marily Romero on 88-23-4484Uqefwrs (U) [Mass/Vol]Protein [Mass/volume] in Urine by Test stripNegativeAdena Regional Medical CenterProtein [Mass/volume] in Serum or PlasmaOrdered By: Marily Romero on 87-61-4420Ftpgiuz [Mass/Vol]Protein [Mass/volume] in Serum or PlasmaLow 6.4-8.9[facility] CenterProthrombin Time INRon 46-45-8873LEP Coag (PPP) [Relative time]1.0 {INR}NormalThe [facility] Physician GroupComment on above:Result Comment: INR Therapeutic Range A) Pre- and [...] patients with mechanical heart valves: 3 - 4.5Performed By: #### PTT, XIN, MG, CMP, PT, LIPASE #### [facility] [address] [place] [address] USAPT Coag (PPP) [Time]11.6 sNormal9.0-12.9The [facility] Physician GroupComment on above:Result Comment: A hematocrit value greater than 55% may lead to inaccurate results in coagulation testing. Patients having hematocrit values >55% require a special collection tube for coagulation studies. Please contact the laboratory at [phone] for redraw instructions.Performed By: #### PTT, XIN, MG, CMP, PT, LIPASE #### [facility] [address] [place] [address] USAProthrombin time (PT)Ordered By: Marily Romero on 10-28-2024 PT Coag (PPP) [Time]Prothrombin time (PT)9.0-12.9[facility] Medical CenterComment on above:A hematocrit value greater than 55% may lead to inaccurate results in coagulation testing. Patientshaving hematocrit values >55% require a special collection tube for coagulation studies. Please contact the laboratory at [phone] for redraw instructions.RBC Auto (Bld) [#/Vol]Ordered By: Marily Romero on 60-54-2006PLL (Bld) [#/Vol]Erythrocytes [#/volume] in Blood by Automated countLow3.90-5.60[facility] Prebleerum or plasma albumin/globulin mass ratioOrdered By: Marily Romero on 63-92-4206Layprtw/Globulin [Mass ratio]Serum or plasma albumin/globulin mass ratioKettering Health Prebleerum or plasma anion gap determinationOrdered By: Marily Romero on 22-08-8196Qfdgr gap [Moles/Vol]Serum or plasma anion gap determinationLow 6.0-15.0[facility] Prebleodium [Moles/volume] in Serum or PlasmaOrdered By: Marily Romero on 30-37-7188Jvabao [Moles/Vol]Sodium [Moles/volume] in Serum or TugnwqHpl193-290OggytzibuAdena Regional Medical Center Specific gravity Test strip (U) [Rel density]Ordered By: Marily Romero on 34-30-2766Umcualxp gravity (U) [Rel density]Specific gravity of Urine by Test strip1.001-1.030[facility] Prebletool Occult Bl. Scr. (Guaiac) on 49-43-1766Rklnt Occult Bl. Scr. (Guaiac)Comment Black/tarry Occult Blood Positive for Occult Blood by Guaiac Methodology Reference range = Negative PERFORMED BY: [facility] [address] [place] [address] PATHOLOGIST COPPER PLATE LITHOGRAPHER KAYE NUNEZ M.D.NormalHca Florida Sarasota Doctors Hospital Physician GroupComment on above: Performed By: #### OBS-GUAIAC #### [facility] [address] [place] [address] USAType and Screenon 90-50-9399HFP and Rh group Nom (Bld) Blood group A Rh(D) positiveNormTampa Shriners Hospital Physician GroupUrea nitrogen [Mass/volume] in Serum or PlasmaOrdered By: Marily Romero on 08-57-2821Lzbo nitrogen [Mass/Vol]Urea nitrogen [Mass/volume] in Serum or PlasmaHigh7-25 [facility] Medical CenterUrinalysison 38-84-4405Niawjjpvse (U)Clear NormalClearThMinidoka Memorial Hospital Physician GroupComment on above:Order Comment: Name Collection Type:: Clean-Voided MidstreamPerformed By: #### CBC #### [place] [address] USABilirubin,UrineNegativeNormalNegativeHca Florida Saras[facility] Hospital Physician GroupComment on above:Order Comment: Name Collection Type:: Clean- Voided MidstreamPerformed By: #### CBC #### [place] [id number] USAColor (U)Light-YellowNormalYellowHca Florida Sarasota Doctors Hospital Physician GroupComment on above:Order Comment: Name Collection Type:: Clean-Voided MidstreamPerformed By: #### CBC #### [facility] [address] [place] [id number] USAGlucose Ql (U)NormalNormalNormTampa Shriners Hospital Physician GroupComment on above:Order Comment: Name Collection Type:: Clean-Voided MidstreamPerformed By: #### CBC #### [facility] [address] [place] [address] USAKetones Ql (U)TraceHighNegativeHca Florida Sarasota Doctors Hospital Physician GroupComment on above:Order Comment: Name Collection Type:: Clean-Voided MidstreamPerformed By: #### CBC #### [facility] [address] [place] [id number] USALeukocyte esterase Test strip Ql (U)NegativeNormalNegative [facility] Physician GroupComment on above:Order Comment: Name Collection Type:: Clean-Voided MidstreamPerformed By: #### CBC #### [place] [address] USANitrite,UrineNegativeNormalNegativeThe [facility] Physician GroupComment on above:Order Comment: Name Collection Type:: Clean-Voided MidstreamPerformed By: #### CBC #### [place] [id number] USAOccult Blood,UrineNegativeNormalNegativeThe [facility] Physician GroupComment on above:Order Comment: Name Collection Type:: Clean- Voided MidstreamResult Comment: PERFORMED BY: [place] [address] PATHOLOGIST COPPER PLATE LITHOGRAPHER KAYE NUNEZ M.D.Performed By: #### CBC #### [place] [address] USApH (U)5.0 [pH]Normal5.0-9.0[facility] Comment on above:Order Comment: Name Collection Type:: Clean-Voided Midstream Performed By: #### CBC #### [place] [address] USAProtein,UrineNegativeNormalNegativeThe [facility] Physician GroupComment on above:Order Comment: Name Collection Type:: Clean-Voided MidstreamPerformed By: #### CBC #### [place] [address] USASpecificy [place],Urine1.569Vehkvi8.001-1.030The [facility] Physician GroupComment on above:Order Comment: Name Collection Type:: Clean- Voided MidstreamPerformed By: #### CBC #### [place] [address] USAUrobilinogen,UrineNormalNormalNormalThe [facility] Physician GroupComment on above:Order Comment: Name Collection Type:: Clean- Voided MidstreamPerformed By: #### CBC #### [place] [address] USAUrobilinogen Test strip (U) [Mass/Vol]Ordered By: Marily Romero on 55-56-5945Caswcrrxshvh (U) [Mass/Vol]Urobilinogen [Mass/volume] in Urine by Test stripNormParkview Health Bryan HospitalWBC Auto (Bld) [#/Vol] Ordered By: Marily Romero on 94-49-2380RBO (Bld) [#/Vol]Leukocytes [#/volume] in Blood by Automated count4.1-10.5FRegency Hospital Cleveland WestaPTT in Platelet poor plasma by Coagulation assayOrdered By: Marily Romero on 10-28-2024 aPTT Coag (PPP) [Time]Activated partial thromboplastin time (aPTT) in platelet poor plasma by coagulation a25.1-36.5FRegency Hospital Cleveland WestComment on above:A hematocrit value greater than 55% may lead to inaccurate results in coagulation testing. Patientshaving hematocrit values >55% require a special collection tube for coagulation studies. Please contact the laboratory at [phone] for redraw instructions.pH Test strip (U)Ordered By: Marily Romero on 43-22-8235mX (U)pH of Urine by Test strip5.0-9.0[facility] Medical CenterCNPNon 63-15-4482KTLLQpqpogNznzhptsa Clinic ClevelandCBC W Auto Differential panel (Bld)on 82-19-2026Evbkkrkxk (Bld) [#/Vol]0.06 10*3/uLNormal <0.11CMary [facility] on above:Order Comment: Specimen Type: BLOOD SPECIMENOrdering Facility: [facility] Address:[address] [place], [place] [address]Udlpnublw By: #### 08940-8 ####[facility] LABCLIA [id number] [place] [address] Basophils/100 WBC (Bld)1.2 %NormalProMedica Memorial Hospital on above: Order Comment: Specimen Type: BLOOD SPECIMENOrdering Facility: [facility] Address:[address] [place], [place] [address]Zktrgzhqa By: #### 61832- 8 ####[facility] LABCLIA [id number] [place], [place] [address]Kygbulkmbzvx cell count method Nom (Bld)AutoNormal [facility] on above:Order Comment: Specimen Type: BLOOD SPECIMENOrdering Facility: [facility] Address:[address] [place], [place] [address]Performed By: #### 80676-1 ####[facility] LABCLIA [id number] [place], [place] [address]Vhwekrhjxzk (Bld) [#/Vol]0.64 10*3/uLHigh<0.46[facility] on above: Order Comment: Specimen Type: BLOOD SPECIMENOrdering Facility: [facility] Address:[address] [place], [place] [address]Performed By: #### 10960- 8 ####[facility] LABIA [id number] [place], [place] [address]Oplhljemuna/100 WBC (Bld)12.9 %NormalProMedica Memorial Hospital on above:Order Comment: Specimen Type: BLOOD SPECIMENOrdering Facility: [facility] Address:[address] [place], [place] [address]Performed By: #### 99735-7 ####[facility] LABCLIA [id number] [place], [place] [address]Hwwizpfhsbo distribution width (RBC) [Ratio]13.2 %Vhnfpt37.5-15.0[facility] on above: Order Comment: Specimen Type: BLOOD SPECIMENOrdering Facility: [facility] Address:[address] [place], [place] [address]Performed By: #### 39654- 8 ####[facility] LABIA [id number] [place], [place] [address]Kkydoozfyr (Bld) [Volume fraction]37.7 %Low39.0-51.0 [facility] on above:Order Comment: Specimen Type: BLOOD SPECIMENOrdering Facility: [facility] Address:[address] [place], [place] [address]Performed By: #### 66208-8 ####[facility] LABIA [id number] [place], [place] [address]Coqzizqznd (Bld) [Mass/Vol]12.2 g/dLLow13.0-17.0[facility] on above:Order Comment: Specimen Type: BLOOD SPECIMENOrdering Facility: [facility] Address:[address] [place], [place] [address]Performed By: #### 81659- 8 ####[facility] LABIA [id number] [place], [place] [address]Xljgcrye granulocytes (Bld) [#/Vol]10*3/uLNormal<0.10 [facility] on above:Order Comment: Specimen Type: BLOOD SPECIMENOrdering Facility: [facility] Address:[address] [place], [place] [address]Performed By: #### 46061-6 ####[facility] LABIA [id number] [place], [place] [address]Ipifkpmj granulocytes/100 WBC (Bld)0.4 %NormalProMedica Memorial Hospital on above: Order Comment: Specimen Type: BLOOD SPECIMENOrdering Facility: [facility] Address:[address] [place], [place] [address]Performed By: #### 67921- 8 ####[facility] LABCLIA [id number] [place], [place] [address]Qhyflyfvlyc (Bld) [#/Vol]0.73 10*3/uLLow1.00-4.00 [facility] on above:Order Comment: Specimen Type: BLOOD SPECIMENOrdering Facility: [facility] Address:[address] [place], [place] [address]Performed By: #### 91354-7 ####[facility] LABIA [id number] [place], [place] [address]Dsiwmlkxwgy/100 WBC (Bld)14.7 %NormalProMedica Memorial Hospital on above:Order Comment: Specimen Type: BLOOD SPECIMENOrdering Facility: [facility] Address:[address] [place], [place] [address]Performed By: #### 95648-6 ####[facility] LABCLIA [id number] [place], [place] [address]YFN (RBC) [Entitic mass]31.0 lnEqwaqf49.0-34.0[facility] on above:Order Comment: Specimen Type: BLOOD SPECIMENOrdering Facility: [facility] Address:[address] [place], [place] [address]Performed By: #### 99185-6 ####[facility] LABCLIA [id number] [place], [place] [address]RBQP (RBC) [Mass/Vol]32.4 g/rXQfrmix85.5-36.0[facility] on above: Order Comment: Specimen Type: BLOOD SPECIMENOrdering Facility: [facility] Address:[address] [place], [place] [address]Performed By: #### 89383- 8 ####[facility] LABCLIA [id number] [place], [place] [address]TVK (RBC) [Entitic vol]95.7 rDNwmodr49.0-100.0[facility] on above:Order Comment: Specimen Type: BLOOD SPECIMENOrdering Facility: [facility] Address:[address] [place], [place] [address]Performed By: #### 90840-0 ####[facility] LABIA [id number] [place], [place] [address]Ajrflzgeu (Bld) [#/Vol]0.78 10*3/uLNormal<0.87[facility] on above:Order Comment: Specimen Type: BLOOD SPECIMENOrdering Facility: [facility] Address:[address] [place], [place] [address]Performed By: #### 90998- 8 ####[facility] LABCLIA [id number] [place], [place] [address]Nshkuntce/100 WBC (Bld)15.8 %NormalProMedica Memorial Hospital on above:Order Comment: Specimen Type: BLOOD SPECIMENOrdering Facility: [facility] Address:[address] [place], [place] [address]Performed By: #### 54102-4 ####[facility] LABCLIA [id number] [place], [place] [address]Shiveyspvtz (Bld) [#/Vol]2.72 10*3/uLNormal1.45-7.50[facility] on above:Order Comment: Specimen Type: BLOOD SPECIMENOrdering Facility: [facility] Address:[address] [place], [place] [address]Performed By: #### 92892-2 ####[facility] LABCLIA [id number] [place], [place] [address]Gogqewjmgez/100 WBC (Bld)55.0 %NormalProMedica Memorial Hospital on above:Order Comment: Specimen Type: BLOOD SPECIMENOrdering Facility: [facility] Address:[address] [place], [place] [address]Performed By: #### 55445-3 ####[facility] LABCLIA [id number] [place], [place] [address]Vpervbzfn RBC (Bld) [#/Vol] 10*3/uLNormal<0.01[facility] on above:Order Comment: Specimen Type: BLOOD SPECIMENOrdering Facility: [facility] Address:[address] [place], [place] [address]Performed By: #### 77225-1 ####[facility] LABCLIA [id number] [place], [place] [address]Ydfdavdre RBC/100 WBC (Bld) [Ratio]0.0 /100 WBCNormal [facility] on above:Order Comment: Specimen Type: BLOOD SPECIMENOrdering Facility: [facility] Address:[address] [place], [place] [address]Performed By: #### 29932-4 ####[facility] LABCLIA [id number] [place], [place] [address]Amhjoefv mean volume (Bld) [Entitic vol]10.2 fLNormal9.0-12.7CMary [facility] Hospital on above:Order Comment: Specimen Type: BLOOD SPECIMENOrdering Facility: [facility] Address:[address] [place] [address] Performed By: #### 41135-0 ####[facility] LABCLIA [id number] [place], [place] [address]Wokrojaki (Bld) [#/Vol]214 10*3/qNRcjwze816-849EnqrtgxquProMedica Memorial Hospital on above:Order Comment: Specimen Type: BLOOD SPECIMENOrdering Facility: [facility] Address:[address] [place], [place] [address]Performed By: #### 44558-0 ####[facility] LABCLIA [id number] [place], [place] [address]BOL (Bld) [#/Vol]3.94 10*6/uLLow4.20-6.00[facility] on above:Order Comment: Specimen Type: BLOOD SPECIMENOrdering Facility: [facility] Address:[address] [place], [place] [address]Performed By: #### 43832-5 ####[facility] LABCLIA [id number] [place], [place] [address]EEW (Bld) [#/Vol]4.95 10*3/uL Normal3.70-11.00[facility] on above:Order Comment: Specimen Type: BLOOD SPECIMENOrdering Facility: [facility] Address:[address] [place], [place] [address]Wtedgdngu By: #### 62749-6 ####[facility] LABCLIA [id number] [place], [place] [address]NKS CBC W AUTO DIFF BLDon 18-88-6388Cddbfvesj/100 WBC (Bld)1.2 %[facility] BASOPHILS # BLD AUTO0.06NINFSaint Luke's Health System DIFFERENTIAL METHOD BLDAutoNOMSullivan County Memorial Hospital EOSINOPHIL # BLD AUTO0.64HighNINF [facility] LYMPHOCYTES # BLD AUTO0.73LowSaint Luke's Health System MONOCYTES # BLD AUTO0.78NILivingston Regional Hospital NEUTROPHILS # BLD AUTO2.72[facility] NRBC # BLD AUTO<0.01NINFSaint Luke's Health System NRBC/100 WBC BLD-RTO0/100 WBCSaint Luke's Health System PLATELET # BLD CDYL359LYRASaint Luke's Health System PMV BLD AUTO10.2 fL9.0 - 12.7 fLSaint Luke's Health System WBC # BLD AUTO4.95NOCox NorthEosinophils/100 WBC (Bld)12.9 %[facility] Medical CenterErythrocyte distribution width (RBC) [Ratio]13.2 %11.5 - 15.0 %[facility] Medical CenterHematocrit (Bld) [Volume fraction]37.7 %Low39.0 - 51.0 % [facility] Medical CenterHemoglobin (Bld) [Mass/Vol]12.2 g/dLLow13.0 - 17.0 g/dLCameron Regional Medical Center GRANULOCYTES # BLD AUTO<0.03NIRegional Hospital of Jackson GRANULOCYTES/LEUK NFR BLD AUTO0.4 %[facility] HealthcareInterpretation and review of laboratory resultsAbnormalNorthwest Medical CenterLymphocytes/100 WBC (Bld)14.7 %[facility] HealthcareH (RBC) [Entitic mass]31 pg26.0 - 34.0 pgCitizens Memorial HealthcareHC (RBC) [Mass/Vol]32.4 g/dL30.5 - 36.0 g/dLCitizens Memorial HealthcareV (RBC) [Entitic vol]95.7 fL 80.0 - 100.0 fLMOUNTAIN VIEW HOSPITAL HealthcareMonocytes/100 WBC (Bld)15.8 %[facility] Neutrophils/100 WBC (Bld)55 %[facility] HealthcareRBC (Bld) [#/Vol]3.94 10*6/uLLow4.20 - 6.00 m/uLMOUNTAIN VIEW HOSPITAL HealthcareSpecimen Type: BLOOD SPECIMEN [facility] Address: [address] [place] [address] Original Ordering Provider: ROSELYN ARMIJOEinstein [facility] Center-[facility] 19-03-4958Glnkzjhmumxt A [Mass/Vol]245.4 ng/mLHigh<187.0[facility] on above:Order Comment: Specimen Type: BLOOD SPECIMENOrdering Facility: [facility] Address:[address] [place], [place] [address]Result Comment: The Chromogranin A test was performed using the Savorfull CgA II KRYPTOR method. Results obtained with different assay methods or kits cannot be used interchangeably.Performed By: #### 9811-1 ####[facility] LABIA [id number] [place] [address] [place] OF AMERICAComprehensive metabolic 2000 panelon 10-15-2024 Albumin [Mass/Vol]4.1 g/dLNormal3.9-4.9CM[facility] on above:Order Comment: Specimen Type: BLOOD SPECIMENOrdering Facility: [facility] Address:[address] [place], [place] [address]Result Comment: Corrected result: Previously reported as 4.3 g/dL on 10/15/2024 at 9:31 AM EST. Performed By: #### 40356-7 ####[facility] LABIA [id number] [place] [address] [place] ALP [Catalytic activity/Vol]145 U/VMeiz23-637AtnembpefProMedica Memorial Hospital on above:Order Comment: Specimen Type: BLOOD SPECIMENOrdering Facility: [facility] Address:[address] [place], [place] [address]Result Comment: Corrected result: Previously reported as 141 U/L on 10/15/2024 at 9:31 AM EST.Performed By: #### 15729-7 ####[facility] LABIA [id number] [place] [address] [place] ALT [Catalytic activity/Vol]21 U/VVwfvls73-30DvqjajzibProMedica Memorial Hospital on above:Order Comment: Specimen Type: BLOOD SPECIMENOrdering Facility: [facility] Address:[address] [place], [place] [address]Result Comment: Corrected result: Previously reported as 16 U/L on 10/15/2024 at 9:31 AM EST.Performed By: #### 97209-1 ####[facility] [id number] [place] [address] [place] Anion gap [Moles/Vol]12 mmol/LNormal8-15[facility] on above:Order Comment: Specimen Type: BLOOD SPECIMENOrdering Facility: [facility] Address:[address] [place], [place] [address]Performed By: #### 33744-2 ####[facility] [id number] [address] STATES OF AMERICAAST [Catalytic activity/Vol]34 U/DOuaypc77-82JrokivexkProMedica Memorial Hospital on above:Order Comment: Specimen Type: BLOOD SPECIMENOrdering Facility: [facility] Address:[address] [place], [place] [address]Result Comment: Corrected result: Previously reported as 30 U/L on 10/15/2024 at 9:31 AM EST.Performed By: #### 73380-9 ####[facility] [id number] [place] [address] [place] AMERICABilirubin [Mass/Vol] 0.3 mg/dLNormal0.2-1.3CM[facility] on above:Order Comment: Specimen Type: BLOOD SPECIMENOrdering Facility: [facility] Address:[address] [place], [place] [address]Result Comment: Corrected result: Previously reported as 0.4 mg/dL on 10/15/2024 at 9:31 AM EST.Performed By: #### 48650-6 ####[facility] LABCLIA [id number] [place] [address] [place] AMERICACalcium [Mass/Vol]8.6 mg/dLNormal8.5-10.2CM[facility] on above:Order Comment: Specimen Type: BLOOD SPECIMENOrdering Facility: [facility] Address:[address] [place], [place] [address]Performed By: #### 42846-9 ####[facility] LABCLIA [id number] [place] [address] [place] AMERICAChloride [Moles/Vol]111 mmol/L Oyfw86-879ZmfzwtnsoProMedica Memorial Hospital on above:Order Comment: Specimen Type: BLOOD SPECIMENOrdering Facility: [facility] Address:[address] [place], [place] [address]Performed By: #### 69641-8 ####[facility] LABIA [id number] [place] [address] [place] AMERICACO2 [Moles/Vol]19 mmol/RKsz53-29ObignphyyProMedica Memorial Hospital on above:Order Comment: Specimen Type: BLOOD SPECIMENOrdering Facility: [facility] Address:[address] [place], [place] [address]Result Comment: Corrected result: Previously reported as 22 mmol/L on 10/15/2024 at 9:31 AM EST.Performed By: #### 38470-1 ####[facility] LABIA [id number] [place] [address] [place] AMERICACreatinine [Mass/Vol]1.37 mg/dLHigh0.73-1.22[facility] on above:Order Comment: Specimen Type: BLOOD SPECIMENOrdering Facility: [facility] Address:[address] [place], [place] [address]Performed By: #### 62732-6 ####[facility] LABIA [id number] [address] [place] Creatinine and Glomerular filtration rate.predicted panel (S/P/Bld)56 mL/min/1.73m???Low>=60[facility] on above:Order Comment: Specimen Type: BLOOD SPECIMENOrdering Facility: [facility] Address:[address] [place], [place] [address]Result Comment: Estimated Glomerular Filtration Rate (eGFR) is calculated using the 2020 CKD-EPI creatinine equation. This equation utilizes serum creatinine, sex, and age as parameters. The creatinine assay has traceable calibration to isotope dilution-mass spectrometry. Refer to KDIGO guidelines for clinical interpretation. In patients with unstable renal function, e.g. those with acute kidney injury, the eGFR may not accurately reflect actual GFR.Performed By: #### 05041-7 ####[facility] LABIA [id number] [place] [address] [place] AMERICAGlucose [Mass/Vol]85 mg/aGCtgbop30-25FjftpvlwdProMedica Memorial Hospital on above:Order Comment: Specimen Type: BLOOD SPECIMENOrdering Facility: [facility] Address:[address] [place], [place] [address]Result Comment: The [place] Diabetes Association (ADA) provides guidance for cutoff [...] unequivocal hyperglycemia, results should be confirmed by repeattesting. In a patient with classic symptoms of hyperglycemia or hyperglycemic crisis, random plasmaglucose results greater than or equal to 200 mg/dL meet the criteria for diagnosis of diabetes.Reference: Standards of Medical Care in Diabetes 2016, [place] [employer]. Diabetes Care. 2016.39(Suppl 1).Corrected result: Previously reported as 90 mg/dL on 10/15/2024 at 9:31 AM EST.Performed By: #### 65993-3 ####[facility] LABIA [id number] [place] [address] [place] AMERICAPotassium [Moles/Vol] 4.8 mmol/LNormal3.7-5.1CM[facility] on above:Order Comment: Specimen Type: BLOOD SPECIMENOrdering Facility: [facility] Address:[address] [place], [place] [address]Performed By: #### 74036-3 ####[facility] LABIA [id number] [place] [address] [place] AMERICAProtein [Mass/Vol]7.1 g/dLNormal 6.3-8.0[facility] on above:Order Comment: Specimen Type: BLOOD SPECIMENOrdering Facility: [facility] Address:[address] [place], [place] [address]Result Comment: Corrected result: Previously reported as 6.9 g/dL on 10/15/2024 at 9:31 AM EST.Performed By: #### 12848-1 ####[facility] LABIA [id number] [place] [address] [place] AMERICASodium [Moles/Vol]142 mmol/FXeoicz945-776WxogyygejProMedica Memorial Hospital on above:Order Comment: Specimen Type: BLOOD SPECIMENOrdering Facility: [facility] Address:[address] [place], [place] [address]Performed By: #### 71843-1 ####[facility] LABIA [id number] [place] [address] [place] AMERICAUrea nitrogen [Mass/Vol]18 mg/dLNormal9-24[facility] Comment on above:Order Comment: Specimen Type: BLOOD SPECIMENOrdering Facility: [facility] Address:[address] [place], [place] [address]Result Comment: Corrected result: Previously reported as 20 mg/dL on 10/15/2024 at 9:31 AM EST.Performed By: #### 38062-1 ####[facility] LABCLIA [id number] [facility] [place] [address] [place] Gastrin SerPl-mCncon 49-47-4912Fpybrph [Mass/Vol]33.0 pg/mLNormal<115.0[facility] on above:Order Comment: Specimen Type: BLOOD SPECIMENOrdering Facility: [facility] Address:[address] [place], [place] [address]Result Comment: The Gastrin test was performed using the Siemens Immulite chemiluminescent immunometric method. Results obtained with different assay methods or kits cannot be used interchangeably.Performed By: #### 2333-3 ####[facility] LABCLIA [id number] [place] [address] [place] AMERICASEROTONIN BLDon 61-46-1623OUZHXBTSU FQXCO2713 ng/jAXnza59-717EyxdmajtoProMedica Memorial Hospital on above:Order Comment: Specimen Type: BLOOD SPECIMENOrdering Facility: [facility] Address:[address] [place], [place] [address]Result Comment: TEST INFORMATION: Serotonin, SerumThis test was developed and its performance characteristicsdetermined by [employer]. It has not been cleared orapproved by the US Food and Drug Administration. This test wasperformed in a CLIA certified laboratory and is intended forclinical p urposes.Performed By: [facility] [place], [place] [address]Nsickvmzvh Director: Chapin Hollis MD, PhDCLIA Number: [id number] Performed By: #### SERTON ####[facility]ENTERIA [id number] [place], [place] [address]AUVVFOPTKM INTESTINAL POLYPEPTIDE (VIP), PLASMAon 40-80-6879ZMKKDNCWQG INTESTINAL DPWLKKKVTEJ27.5 pg/mLNormal0.0-89.1CM[facility] on above:Order Comment: Specimen Type: BLOOD SPECIMENOrdering Facility: [facility] Address:[address] [place], [place] [address]Result Comment: This test was developed and its performance characteristicsdetermined by [facility]. It has not been cleared orapproved by the U.S. Food and Drug Administration. This test wasperformed in a CLIA-certified laboratory and is intended forclinical purposes.Performed By: [facility] [place], [place] [address]Remjaiczge Director: Chapin Hollis MD, PhDCLIA Number: [id number] By: #### VIP ####[facility]ENTERIA [id number] [place], [place] [address]DTO W Auto Differential panel (Bld)on 31-99-4310Idgqjocst (Bld) [#/Vol]0.06 10*3/uL Normal<0.11CM[facility] on above:Order Comment: Specimen Type: BLOOD SPECIMENOrdering Facility: [facility] Address:[address] [place], [place] [address]Performed By: #### 82799-5 ####[facility] LABCLIA [id number] [place] [address] Basophils/100 WBC (Bld)1.4 %NormalProMedica Memorial Hospital on above: Order Comment: Specimen Type: BLOOD SPECIMENOrdering Facility: [facility] Address:[address] [place], [place] [address]Performed By: #### 66424- 8 ####[facility] LABCLIA [id number] [place], [place] [address]Cphvwaoqpcod cell count method Nom (Bld)AutoNormal [facility] on above:Order Comment: Specimen Type: BLOOD SPECIMENOrdering Facility: [facility] Address:[address] [place], [place] [address]Performed By: #### 73676-9 ####[facility] LABCLIA [id number] [place], [place] [address]Buatcuurxjf (Bld) [#/Vol]0.39 10*3/uLNormal<0.46[facility] on above: Order Comment: Specimen Type: BLOOD SPECIMENOrdering Facility: [facility] Address:[address] [place], [place] [address]Performed By: #### 61837- 8 ####[facility] LABCLIA [id number] [place], [place] [address]Owgsbjuosvh/100 WBC (Bld)9.0 %NormalProMedica Memorial Hospital on above:Order Comment: Specimen Type: BLOOD SPECIMENOrdering Facility: [facility] Address:[address] [place], [place] [address]Performed By: #### 08227-8 ####[facility] LABCLIA [id number] [place], [place] [address]Kmmnscefisb distribution width (RBC) [Ratio]13.0 %Eirklk78.5-15.0[facility] on above: Order Comment: Specimen Type: BLOOD SPECIMENOrdering Facility: [facility] Address:[address] [place], [place] [address]Performed By: #### 20622- 8 ####[facility] LABIA [id number] [place], [place] [address]Fvxosfrjbs (Bld) [Volume fraction]36.8 %Low39.0-51.0 [facility] on above:Order Comment: Specimen Type: BLOOD SPECIMENOrdering Facility: [facility] Address:[address] [place], [place] [address]Performed By: #### 67939-0 ####[facility] LABIA [id number] [place], [place] [address]Fbeyvuigge (Bld) [Mass/Vol]11.7 g/dLLow13.0-17.0[facility] on above:Order Comment: Specimen Type: BLOOD SPECIMENOrdering Facility: [facility] Address:[address] [place], [place] [address]Performed By: #### 08383- 8 ####[facility] LABCLIA [id number] [place], [place] [address]Ldffiqgs granulocytes (Bld) [#/Vol]10*3/uLNormal<0.10 [facility] on above:Order Comment: Specimen Type: BLOOD SPECIMENOrdering Facility: [facility] Address:[address] [place], [place] [address]Performed By: #### 26440-6 ####[facility] LABCLIA [id number] [place], [place] [address]Wtlvpxdd granulocytes/100 WBC (Bld)0.2 %NormalProMedica Memorial Hospital on above: Order Comment: Specimen Type: BLOOD SPECIMENOrdering Facility: [facility] Address:[address] [place], [place] [address]Performed By: #### 54082- 8 ####[facility] LABCLIA [id number] [place], [place] [address]Zgjvdmxprjg (Bld) [#/Vol]0.52 10*3/uLLow1.00-4.00 [facility] on above:Order Comment: Specimen Type: BLOOD SPECIMENOrdering Facility: [facility] Address:[address] [place], [place] [address]Performed By: #### 80613-8 ####[facility] LABIA [id number] [place], [place] [address]Jeedeiehwfr/100 WBC (Bld)12.1 %NormalProMedica Memorial Hospital on above:Order Comment: Specimen Type: BLOOD SPECIMENOrdering Facility: [facility] Address:[address] [place], [place] [address]Performed By: #### 31523-0 ####[facility] LABIA [id number] [place], [place] [address]RJR (RBC) [Entitic mass]30.0 ytUryzqj23.0-34.0[facility] on above:Order Comment: Specimen Type: BLOOD SPECIMENOrdering Facility: [facility] Address:[address] [place], [place] [address]Performed By: #### 91183-7 ####[facility] LABCLIA [id number] [place], [place] [address]SKJH (RBC) [Mass/Vol]31.8 g/sPDetgto08.5-36.0[facility] on above: Order Comment: Specimen Type: BLOOD SPECIMENOrdering Facility: [facility] Address:[address] [place], [place] [address]Performed By: #### 92750- 8 ####[facility] LABCLIA [id number] [place], [place] [address]TCV (RBC) [Entitic vol]94.4 oEMtdcjq27.0-100.0[facility] on above:Order Comment: Specimen Type: BLOOD SPECIMENOrdering Facility: [facility] Address:[address] [place], [place] [address]Performed By: #### 79226-7 ####[facility] LABIA [id number] [place], [place] [address]Kxygxwlpx (Bld) [#/Vol]0.66 10*3/uLNormal<0.87[facility] on above:Order Comment: Specimen Type: BLOOD SPECIMENOrdering Facility: [facility] Address:[address] [place], [place] [address]Performed By: #### 88888- 8 ####[facility] LABIA [id number] [place], [place] [address]Ewyrjmutr/100 WBC (Bld)15.3 %NormalProMedica Memorial Hospital on above:Order Comment: Specimen Type: BLOOD SPECIMENOrdering Facility: [facility] Address:[address] [place], [place] [address]Performed By: #### 46782-5 ####[facility] LABIA [id number] [place], [place] [address]Hermwvkrcgn (Bld) [#/Vol]2.67 10*3/uLNormal1.45-7.50[facility] on above:Order Comment: Specimen Type: BLOOD SPECIMENOrdering Facility: [facility] Address:[address] [place], [place] [address]Performed By: #### 40401-6 ####[facility] LABCLIA [id number] [place], [place] [address]Nizrsyqryrr/100 WBC (Bld)62.0 %NormalProMedica Memorial Hospital on above:Order Comment: Specimen Type: BLOOD SPECIMENOrdering Facility: [facility] Address:[address] [place], [place] [address]Performed By: #### 95934-6 ####[facility] LABCLIA [id number] [place], [place] [address]Jkhxeftqv RBC (Bld) [#/Vol] 10*3/uLNormal<0.01[facility] on above:Order Comment: Specimen Type: BLOOD SPECIMENOrdering Facility: [facility] Address:[address] [place], [place] [address]Performed By: #### 82812-0 ####[facility] LABCLIA [id number] [place], [place] [address]Tkkhqherf RBC/100 WBC (Bld) [Ratio]0.0 /100 WBCNormal [facility] on above:Order Comment: Specimen Type: BLOOD SPECIMENOrdering Facility: [facility] Address:[address] [place], [place] [address]Performed By: #### 06426-2 ####[facility] LABIA [id number] [place], [place] [address]Yzwpapsk mean volume (Bld) [Entitic vol]10.2 fLNormal9.0-12.7CM[facility] on above:Order Comment: Specimen Type: BLOOD SPECIMENOrdering Facility: [facility] Address:[address] [place] [address] Performed By: #### 00550-1 ####[facility] LABCLIA [id number] [place], [place] [address]Kmzckqmkz (Bld) [#/Vol]212 10*3/yWHcktvp840-681ZqwwqerrrProMedica Memorial Hospital on above:Order Comment: Specimen Type: BLOOD SPECIMENOrdering Facility: [facility] Address:[address] [place], [place] [address]Performed By: #### 84534-1 ####[facility] LABCLIA [id number] [place], [place] [address]VQC (Bld) [#/Vol]3.90 10*6/uLLow4.20-6.00[facility] on above:Order Comment: Specimen Type: BLOOD SPECIMENOrdering Facility: [facility] Address:[address] [place], [place] [address]Performed By: #### 61530-2 ####[facility] LABCLIA [id number] [place], [place] [address]HNM (Bld) [#/Vol]4.31 10*3/uL Normal3.70-11.00[facility] on above:Order Comment: Specimen Type: BLOOD SPECIMENOrdering Facility: [facility] Address:[address] [place], [place] [address]Performed By: #### 79124-7 ####[facility] LABCLIA [id number] [place], [place] [address]UDC CBC W AUTO DIFF BLDon 10-17-6343Vvtvhzoka/100 WBC (Bld)1.4 %NOMS [facility] SouthF BASOPHILS # BLD AUTO0.06NINFNORanken [facility]ty [facility] DIFFERENTIAL METHOD BLDAutoNOMS [facility]F EOSINOPHIL # BLD AUTO0.39NINFNOSSM Health CareF LYMPHOCYTES # BLD AUTO0.52LowNOSSM Health CareF MONOCYTES # BLD AUTO0.66NINFNOSSM Health CareF NEUTROPHILS # BLD AUTO2.67NORanken [facility] NRBC # BLD AUTO<0.01NINFSaint Luke's Health System NRBC/100 WBC BLD-RTO0/100 WBCSaint Luke's Health System PLATELET # BLD KPSV744XOWOSaint Luke's Health System PMV BLD AUTO10.2 fL9.0 - 12.7 fLSaint Luke's Health System WBC # BLD AUTO4.31[facility] CenterEosinophils/100 WBC (Bld)9 %[facility] Medical CenterErythrocyte distribution width (RBC) [Ratio]13 %11.5 - 15.0 %[facility] Medical CenterHematocrit (Bld) [Volume fraction]36.8 %Low39.0 - 51.0 % [facility] CenterHemoglobin (Bld) [Mass/Vol]11.7 g/dLLow13.0 - 17.0 g/dLCameron Regional Medical Center GRANULOCYTES # BLD AUTO<0.03NIRegional Hospital [facility] GRANULOCYTES/LEUK NFR BLD AUTO0.2 %[facility] CenterInterpretation and review of laboratory resultsAbnormalNorthwest Medical CenterLymphocytes/100 WBC (Bld)12.1 %[facility] HealthcareH (RBC) [Entitic mass]30 pg26.0 - 34.0 pgCitizens Memorial HealthcareHC (RBC) [Mass/Vol]31.8 g/dL30.5 - 36.0 g/dLCitizens Memorial HealthcareV (RBC) [Entitic vol]94.4 fL 80.0 - 100.0 fLNorthwest Medical CenterMonocytes/100 WBC (Bld)15.3 %[facility] Neutrophils/100 WBC (Bld)62 %[facility] Medical CenterRBC (Bld) [#/Vol]3.9 10*6/uLLow4.20 - 6.00 m/uLMOUNTAIN VIEW HOSPITAL HealthcareSpecimen Type: BLOOD SPECIMEN [facility] Address: [address] [place] [address] Original Ordering Provider: ROSELYN MORLEYCox NorthPresley Mckeon 24-22-1038Vqlmhmkdpsni A [Mass/Vol]209.0 ng/mLHigh<187.0[facility] Medical CenterComment on above:Order Comment: Specimen Type: BLOOD SPECIMENOrdering Facility: [facility] Address:[address] [place], [place] [address]Result Comment: The Chromogranin A test was performed using the AffinioS CgA II KRYPTOR method. Results obtained with different assay methods or kits cannot be used interchangeably.Performed By: #### 9811-1 ####[facility] LABCLIA [id number] [place] [address] [place] STATES OF AMERICAComprehensive metabolic 2000 panelon 09-24-2024 Albumin [Mass/Vol]4.1 g/dLNormal3.9-4.9CM[facility] on above:Order Comment: Specimen Type: BLOOD SPECIMENOrdering Facility: [facility] Address:[address] [place], [place] [address]Performed By: #### 64477-1 ####[facility] LABCLIA [id number] [place], [place] [address]IDO [Catalytic activity/Vol]149 U/ZHjsi70-942 [facility] on above:Order Comment: Specimen Type: BLOOD SPECIMENOrdering Facility: [facility] Address:[address] [place], [place] [address]Performed By: #### 38385-8 ####[facility] LABCLIA [id number] [place], [place] [address]SAA [Catalytic activity/Vol]14 U/QRiecqm73-24EzzovdyajProMedica Memorial Hospital on above:Order Comment: Specimen Type: BLOOD SPECIMENOrdering Facility: [facility] Address:[address] [place], [place] [address]Performed By: #### 29018- 8 ####[facility] LABCLIA [id number] [place], [place] [address]Emljm gap [Moles/Vol]10 mmol/LNormal8-15[facility] on above:Order Comment: Specimen Type: BLOOD SPECIMENOrdering Facility: [facility] Address:[address] [place], [place] [address]Performed By: #### 57203-1 ####[facility] LABCLIA [id number] [facility] [place], [place] [address]WFK [Catalytic activity/Vol]27 U/POesbsp14-73QaczcmpfwProMedica Memorial Hospital on above:Order Comment: Specimen Type: BLOOD SPECIMENOrdering Facility: [facility] Address:[address] [place], [place] [address]Performed By: #### 03439-6 ####[facility] LABCLIA [id number] [facility] [place] [address] Bilirubin [Mass/Vol]0.5 mg/dLNormal0.2-1.3CM[facility] on above:Order Comment: Specimen Type: BLOOD SPECIMENOrdering Facility: [facility] Address:[address] [place], [place] [address]Performed By: #### 86379-7 ####[facility] LABCLIA [id number] [facility] [place], [place] [address]Oojdfmr [Mass/Vol]8.8 mg/dLNormal8.5-10.2CM[facility] on above:Order Comment: Specimen Type: BLOOD SPECIMENOrdering Facility: [facility] Address:[address] [place], [place] [address]Performed By: #### 83778-9 ####[facility] LABCLIA [id number] [facility] [place], [place] [address]Izailodr [Moles/Vol]109 mmol/SKssb45-658SrzgjiafbProMedica Memorial Hospital on above:Order Comment: Specimen Type: BLOOD SPECIMENOrdering Facility: [facility] Address:[address] [place], [place] [address]Performed By: #### 64866- 8 ####[facility] LABCLIA [id number] [facility] ANGELES BEASLEYHONOR[facility] OS[facility] MEDICAL CENTERMANOLOSURREY, [place] [address]LV6 [Moles/Vol]20 mmol/HCdk14-39CorbcutuuProMedica Memorial Hospital on above:Order Comment: Specimen Type: BLOOD SPECIMENOrdering Facility: [facility] Address:[address] [place], [place] [address]Upusrirag By: #### 54179-1 ####[facility] LABCLIA [id number] [place], [place] [address]Uetsqpnmhp [Mass/Vol]1.14 mg/dL Normal0.73-1.22[facility] on above:Order Comment: Specimen Type: BLOOD SPECIMENOrdering Facility: [facility] Address:[address] [place], [place] [address]Performed By: #### 75495-4 ####[facility] LABCLIA [id number] [place], [place] [address]Jrcbzqhhhf and Glomerular filtration rate.predicted panel (S/P/Bld)70 mL/min/1.73m???Normal>=60[facility] on above:Order Comment: Specimen Type: BLOOD SPECIMENOrdering Facility: [facility] Address:[address] [place], [place] [address]Result Comment: Estimated Glomerular Filtration Rate (eGFR) is calculated using the 2020 CKD-EPI creatinine equation. This equation utilizes serum creatinine, sex, and age as parameters. The creatinine assay has traceable calibration to isotope dilution- mass spectrometry. Refer to KDIGO guidelines for clinical interpretation. In patients with unstable renal function, e.g. those with acute kidney injury, the eGFR may not accurately reflect actual GFR.Performed By: #### 49244-6 ####[facility] LABCLIA [id number] [place], [place] [address]Dibvlcp [Mass/Vol]91 mg/dWBehwio27-05DamqzsvggProMedica Memorial Hospital on above:Order Comment: Specimen Type: BLOOD SPECIMENOrdering Facility: [facility] Address:[address] [place], [place] [address]Result Comment: The [place] Diabetes Association (ADA) provides guidance for cutoff values for fasting glucose and random glucose. The ADA defines fasting as no caloric intake for at least 8 hours. Fasting plasma glucose results between 100 to 125 mg/dL indicate increased risk for diabetes (prediab etes).Fasting plasma glucose results greater than or equal to 126 mg/dL meet the criteria for diagnosis of diabetes. In the absence of unequivocal hyperglycemia, results should be confirmed by repeattesting. In a patient with classic symptoms of hyperglycemia or hyperglycemic crisis, random plasmaglucose results greater than or equal to 200 mg/dL meet the criteria for diagnosis of diabetes.Reference: Standards of Medical Care in Diabetes 2016, [place] Diabetes Association. Diabetes Care. 2016.39(Suppl 1).Performed By: #### 39005-1 ####[facility] LABCLIA [id number] [place], [place] [address]Ajbsamomp [Moles/Vol]4.6 mmol/LNormal3.7-5.1CM[facility] on above:Order Comment: Specimen Type: BLOOD SPECIMENOrdering Facility: [facility] Address:[address] [place], [place] [address]Performed By: #### 66045-0 ####[facility] LABIA [id number] [place], [place] [address]Kqmujug [Mass/Vol]7.1 g/dLNormal6.3-8.0[facility] on above:Order Comment: Specimen Type: BLOOD SPECIMENOrdering Facility: [facility] Address:[address] [place], [place] [address]Performed By: #### 07719- 8 ####[facility] LABIA [id number] [place], [place] [address]Ygbbpd [Moles/Vol]139 mmol/SVoqnrt066-791GkmuybqeeProMedica Memorial Hospital on above:Order Comment: Specimen Type: BLOOD SPECIMENOrdering Facility: [facility] Address:[address] [place], [place] [address]Performed By: #### 26215-0 ####[facility] LABIA [id number] [place], [place] [address]Gobj nitrogen [Mass/Vol]25 mg/dLHigh9-24[facility] on above:Order Comment: Specimen Type: BLOOD SPECIMENOrdering Facility: [facility] Address:[address] [place], [place] [address]Performed By: #### 88831-7 ####[facility] LABCLIA [id number] [place] [address] Gastrin SerPl-mCncon 89-80-6981Zjhxukz [Mass/Vol]43.2 pg/mLNormal<115.0[facility] on above:Order Comment: Specimen Type: BLOOD SPECIMENOrdering Facility: [facility] Address:[address] [place], [place] [address]Result Comment: The Gastrin test was performed using the Siemens Immulite chemiluminescent immunometric method. Results obtained with different assay methods or kits cannot be used interchangeably.Performed By: #### 2333-3 ####[facility] LABCLIA [id number] [facility] HOSPITALKGSNWDKALSK23PAHFHZDXT[address] STREETSEROTONIN BLDon 85-60-1357KRRRPZWVC JEIIX3607 ng/jDUdyg10-379MljhxykuhProMedica Memorial Hospital on above:Order Comment: Specimen Type: BLOOD SPECIMENOrdering Facility: [facility] Address:[address] [place], [place] [address]Result Comment: TEST INFORMATION: Serotonin, SerumThis test was developed and its performance characteristicsdetermined by [facility]. It has not been cleared orapproved by the [place] Food and Drug Administration. This test wasperformed in a CLIA certified laboratory and is intended forclinical p urposes.Performed By: [facility] [place], [place] [address]Gkdgdetqgd Director: Chapin Hollis MD, PhDCLIA Number: [id number] Performed By: #### SERTON ####[facility]ENTERIA [id number] [place], [place] [address]CRBVQMJSOY INTESTINAL POLYPEPTIDE (VIP), PLASMAon 53-89-2360DNAVAKRAHK INTESTINAL FYIOXTSLDLN52.9 pg/mLNormal0.0-89.1[facility] on above:Order Comment: Specimen Type: BLOOD SPECIMENOrdering Facility: [facility] Address:[address] [place], [place] [address]Result Comment: This test was developed and its performance characteristicsdetermined by [facility]. It has not been cleared orapproved by the U.S. Food and Drug Administration. This test wasperformed in a CLIA-certified laboratory and is intended forclinical purposes.Performed By: [facility] [address] [place] [address]Hikkvjbdpp Director: Chapin Hollis MD, PhDCLIA Number: [id number] By: #### VIP ####[facility]ENTERIA [id number] [place], [place] [address]BBZE on 85-21-8067QKLLSohpiqTuddczizb Clinic ClevelandCBC W Auto Differential panel (Bld)on 58-01-9366Cwhdhwqho (Bld) [#/Vol]0.04 10*3/uLNormal<0.11CWayne HealthCare Main CampusComment on above:Order Comment: Specimen Type: BLOOD SPECIMENOrdering Facility: [facility] Address:[address] [place], [place] [address]Performed By: #### 77439-6 ####[facility] LABCLIA [id number] [place], [place] [address]Tnwcztbrk/100 WBC (Bld)1.2 % NormalUniversity Hospitals Samaritan Medical CenterComment on above:Order Comment: Specimen Type: BLOOD SPECIMENOrdering Facility: [facility] Address:[address] [place], [place] [address]Performed By: #### 12947-6 ####[facility] LABCLIA [id number] [place] [address] Differential cell count method Nom (Bld)AutoNormalCWayne HealthCare Main Campus Comment on above:Order Comment: Specimen Type: BLOOD SPECIMENOrdering Facility: [facility] Address:[address] [place] [address] Performed By: #### 74953-4 ####[facility] LABCLIA [id number] [place], [place] [address]Rmxuffcbraw (Bld) [#/Vol]0.44 10*3/uLNormal<0.46[facility] on above:Order Comment: Specimen Type: BLOOD SPECIMENOrdering Facility: [facility] Address:[address] [place], [place] [address]Performed By: #### 08127-5 ####[facility] LABCLIA [id number] [place], [place] [address]Gfvivbcxrxf/100 WBC (Bld)13.0 %NormalProMedica Memorial Hospital on above:Order Comment: Specimen Type: BLOOD SPECIMENOrdering Facility: [facility] Address:[address] [place], [place] [address]Performed By: #### 89583-9 ####[facility] LABIA [id number] [place], [place] [address]Vfhjzjhjsgc distribution width (RBC) [Ratio]13.0 %Vaczom31.5-15.0[facility] on above: Order Comment: Specimen Type: BLOOD SPECIMENOrdering Facility: [facility] Address:[address] [place], [place] [address]Performed By: #### 69121- 8 ####[facility] LABCLIA [id number] [place], [place] [address]Blcltrfyab (Bld) [Volume fraction]35.1 %Low39.0-51.0 [facility] on above:Order Comment: Specimen Type: BLOOD SPECIMENOrdering Facility: [facility] Address:[address] [place], [place] [address]Performed By: #### 52542-1 ####[facility] LABIA [id number] [place], [place] [address]Oadvnfykbd (Bld) [Mass/Vol]11.5 g/dLLow13.0-17.0[facility] on above:Order Comment: Specimen Type: BLOOD SPECIMENOrdering Facility: [facility] Address:[address] [place], [place] [address]Performed By: #### 40536- 8 ####[facility] LABCLIA [id number] [place], [place] [address]Bmrcoarf granulocytes (Bld) [#/Vol]10*3/uLNormal<0.10 [facility] on above:Order Comment: Specimen Type: BLOOD SPECIMENOrdering Facility: [facility] Address:[address] [place], [place] [address]Performed By: #### 85237-2 ####[facility] LABCLIA [id number] [place], [place] [address]Ghozskrz granulocytes/100 WBC (Bld)0.6 %NormalProMedica Memorial Hospital on above: Order Comment: Specimen Type: BLOOD SPECIMENOrdering Facility: [facility] Address:[address] [place], [place] [address]Performed By: #### 34233- 8 ####[facility] LABCLIA [id number] [place], [place] [address]Ruqaftifwiw (Bld) [#/Vol]0.59 10*3/uLLow1.00-4.00 [facility] on above:Order Comment: Specimen Type: BLOOD SPECIMENOrdering Facility: [facility] Address:[address] [place], [place] [address]Performed By: #### 69240-0 ####[facility] LABCLIA [id number] [place], [place] [address]Rhcrzoydtjw/100 WBC (Bld)17.5 %NormalProMedica Memorial Hospital on above:Order Comment: Specimen Type: BLOOD SPECIMENOrdering Facility: [facility] Address:[address] [place], [place] [address]Performed By: #### 47710-4 ####[facility] LABCLIA [id number] [place], [place] [address]ALS (RBC) [Entitic mass]31.7 gwIzwetv92.0-34.0[facility] on above:Order Comment: Specimen Type: BLOOD SPECIMENOrdering Facility: [facility] Address:[address] [place], [place] [address]Performed By: #### 05610-3 ####[facility] LABCLIA [id number] [place], [place] [address]YRHU (RBC) [Mass/Vol]32.8 g/cPVdgqei48.5-36.0[facility] on above: Order Comment: Specimen Type: BLOOD SPECIMENOrdering Facility: [facility] Address:[address] [place], [place] [address]Performed By: #### [id number]- 8 ####[facility] LABCLIA [id number] [place], [place] [address]WXP (RBC) [Entitic vol]96.7 cYCxhwar46.0-100.0[facility] on above:Order Comment: Specimen Type: BLOOD SPECIMENOrdering Facility: [facility] Address:[address] [place], [place] [address]Performed By: #### [id number] ####MON [facility] [id number] [place], [place] [address]Bshxlqgdh (Bld) [#/Vol]0.51 10*3/uLNormal<0.87[facility] on above:Order Comment: Specimen Type: BLOOD SPECIMENOrdering Facility: [facility] Address:[address] [place], [place] [address]Performed By: #### 20472- 8 ####[facility] LABCLIA [id number] [place], [place] [address]Lzvxdrfmx/100 WBC (Bld)15.1 %NormalProMedica Memorial Hospital on above:Order Comment: Specimen Type: BLOOD SPECIMENOrdering Facility: [facility] Address:[address] [place], [place] [address]Performed By: #### 41037-5 ####[facility] LABCLIA [id number] [place], [place] [address]Wkwoswxhsit (Bld) [#/Vol]1.78 10*3/uLNormal1.45-7.50[facility] on above:Order Comment: Specimen Type: BLOOD SPECIMENOrdering Facility: [facility] Address:[address] [place], [place] [address]Performed By: #### 50872-6 ####[facility] LABCLIA [id number] [place], [place] [address]Tzfqqqpiuzi/100 WBC (Bld)52.6 %NormalProMedica Memorial Hospital on above:Order Comment: Specimen Type: BLOOD SPECIMENOrdering Facility: [facility] Address:[address] [place], [place] [address]Performed By: #### 10057-8 ####[facility] LABCLIA [id number] [place], [place] [address]Amniqgpaw RBC (Bld) [#/Vol] 10*3/uLNormal<0.01[facility] on above:Order Comment: Specimen Type: BLOOD SPECIMENOrdering Facility: [facility] Address:[address] [place], [place] [address]Performed By: #### 43576-2 ####[facility] LABCLIA [id number] [place], [place] [address]Kacklwueg RBC/100 WBC (Bld) [Ratio]0.0 /100 WBCNormal [facility] on above:Order Comment: Specimen Type: BLOOD SPECIMENOrdering Facility: [facility] Address:[address] [place], [place] [address]Performed By: #### 23515-1 ####[facility] LABIA [id number] [place], [place] [address]Oticlkxg mean volume (Bld) [Entitic vol]9.7 fLNormal9.0-12.7CM[facility] on above:Order Comment: Specimen Type: BLOOD SPECIMENOrdering Facility: [facility] Address:[address] [place] [address] Performed By: #### 99912-5 ####[facility] LABCLIA [id number] [place], [place] [address]Gopicecin (Bld) [#/Vol]203 10*3/hMVsxkrb970-699WmjwkfzkxProMedica Memorial Hospital on above:Order Comment: Specimen Type: BLOOD SPECIMENOrdering Facility: [facility] Address:[address] [place], [place] [address]Performed By: #### 51869-6 ####[facility] LABCLIA [id number] [place], [place] [address]UPJ (Bld) [#/Vol]3.63 10*6/uLLow4.20-6.00[facility] on above:Order Comment: Specimen Type: BLOOD SPECIMENOrdering Facility: [facility] Address:[address] [place], [place] [address]Performed By: #### 46380-5 ####[facility] LABIA [id number] [place], [place] [address]AJE (Bld) [#/Vol]3.38 10*3/uL Low3.70-11.00[facility] on above:Order Comment: Specimen Type: BLOOD SPECIMENOrdering Facility: [facility] Address:[address] [place], [place] [address]Performed By: #### 24002-9 ####[facility] LABIA [id number] [place] [address] [facility] CBC W AUTO DIFF BLDon 47-71-3949Vdygkjpnb/100 WBC (Bld)1.2 %[facility] BASOPHILS # BLD AUTO0.04NINFNOMS HealthcareCCF DIFFERENTIAL METHOD BLDAuto [facility] HealthcareCCF EOSINOPHIL # BLD AUTO0.44NILivingston Regional Hospital LYMPHOCYTES # BLD AUTO0.59LowSaint Luke's Health System MONOCYTES # BLD AUTO0.51NIDecatur County General Hospital [facility] NEUTROPHILS # BLD AUTO1.78[facility] NRBC # BLD AUTO<0.01NILivingston [facility] Hospital NRBC/100 WBC BLD-RTO0/100 WBCSaint Luke's Health System PLATELET # BLD [id number] [facility] PMV BLD AUTO9.7 fL9.0 - 12.7 fLSaint Luke's Health System WBC # BLD AUTO3.38LowNorthwest Medical CenterEosinophils/100 WBC (Bld)13 %[facility] Erythrocyte distribution width (RBC) [Ratio]13 %11.5 - 15.0 %[facility] Hematocrit (Bld) [Volume fraction]35.1 %Low39.0 - 51.0 %[facility] Hemoglobin (Bld) [Mass/Vol]11.5 g/dLLow13.0 - 17.0 g/dLCameron Regional Medical Center GRANULOCYTES # BLD AUTO<0.03NIRegional [facility] GRANULOCYTES/LEUK NFR BLD AUTO0.6 %[facility] CenterInterpretation and review of laboratory resultsAbnormal [facility] Medical CenterLymphocytes/100 WBC (Bld)17.5 %[facility] HealthcareH (RBC) [Entitic mass]31.7 pg26.0 - 34.0 pgCitizens Memorial HealthcareHC (RBC) [Mass/Vol]32.8 g/dL30.5 - 36.0 g/dLCitizens Memorial HealthcareV (RBC) [Entitic vol]96.7 fL80.0 - 100.0 fLNorthwest Medical CenterMonocytes/100 WBC (Bld)15.1 %[facility] Medical CenterNeutrophils/100 WBC (Bld) 52.6 %[facility] Medical CenterRBC (Bld) [#/Vol]3.63 10*6/uLLow4.20 - 6.00 m/uLNorthwest Medical CenterSpecimen Type: BLOOD SPECIMEN [facility] Address: [address] [place] [address] Original Ordering Provider: ROSELYN ARMIJOUniversity of Missouri Health CareHodan MillerLaurie 89-87-0132Ccvzuneexlxf A [Mass/Vol]195.6 ng/mLHigh<187.0[facility] on above:Order Comment: Specimen Type: BLOOD SPECIMENOrdering Facility: [facility] Address:[address] [place], [place] [address]Result Comment: The Chromogranin A test was performed using the Savorfull CgA II KRYPTOR method. Results obtained with different assay methods or kits cannot be used interchangeably.Performed By: #### 9811-1 ####[facility] LABCLIA [id number] [address] OF [facility]OSPITALComprehensive metabolic 2000 panelon 09-03-2024 Albumin [Mass/Vol]3.9 g/dLNormal3.9-4.9CM[facility] on above:Order Comment: Specimen Type: BLOOD SPECIMENOrdering Facility: [facility] Address:[address] [place], [place] [address]Performed By: #### 96796-8 ####[facility] LABCLIA [id number] [place], [place] [address]STT [Catalytic activity/Vol]125 U/WLykw26-205 [facility] on above:Order Comment: Specimen Type: BLOOD SPECIMENOrdering Facility: [facility] Address:[address] [place], [place] [address]Performed By: #### 75839-1 ####[facility] LABCLIA [id number] [place], [place] [address]CRK [Catalytic activity/Vol]13 U/NKzhbhe55-88CrqfhyhkqProMedica Memorial Hospital on above:Order Comment: Specimen Type: BLOOD SPECIMENOrdering Facility: [facility] Address:[address] [place], [place] [address]Performed By: #### 42001- 8 ####[facility] LABCLIA [id number] [place], [place] [address]Kjaic gap [Moles/Vol]10 mmol/LNormal8-15[facility] on above:Order Comment: Specimen Type: BLOOD SPECIMENOrdering Facility: [facility] Address:[address] [place], [place] [address]Performed By: #### 08600-7 ####[facility] LABCLIA [id number] [facility]ITALMARCO AHON[facility] [place] [address]HRL [Catalytic activity/Vol]23 U/CFowkka91-17RuajhqjanProMedica Memorial Hospital on above:Order Comment: Specimen Type: BLOOD SPECIMENOrdering Facility: [facility] Address:[address] [place], [place] [address]Performed By: #### 86340-7 ####[facility] LABCLIA [id number] [place] [address] Bilirubin [Mass/Vol]0.2 mg/dLNormal0.2-1.3CM[facility] on above:Order Comment: Specimen Type: BLOOD SPECIMENOrdering Facility: [facility] Address:[address] [place], [place] [address]Performed By: #### 88110-8 ####[facility] LABCLIA [id number] [place], [place] [address]Txezqyr [Mass/Vol]8.4 mg/dLLow8.5-10.2CM[facility] on above:Order Comment: Specimen Type: BLOOD SPECIMENOrdering Facility: [facility] Address:[address] [place], [place] [address]Performed By: #### 66406-0 ####[facility] LABCLIA [id number] [place], [place] [address]Egiwlglz [Moles/Vol]115 mmol/TLlmg76-205HalcsncdjProMedica Memorial Hospital on above:Order Comment: Specimen Type: BLOOD SPECIMENOrdering Facility: [facility] Address:[address] [place], [place] [address]Performed By: #### 09406- 8 ####[facility] LABCLIA [id number] [place], [place] [address]NY2 [Moles/Vol]20 mmol/EFyt90-04JurwkbfbvProMedica Memorial Hospital on above:Order Comment: Specimen Type: BLOOD SPECIMENOrdering Facility: [facility] Address:[address] [place], [place] [address]Performed By: #### 33250-7 ####[facility] LABCLIA [id number] [place], [place] [address]Olrefwiqma [Mass/Vol]1.16 mg/dL Normal0.73-1.22[facility] on above:Order Comment: Specimen Type: BLOOD SPECIMENOrdering Facility: [facility] Address:[address] [place], [place] [address]Performed By: #### 27723-6 ####[facility] LABCLIA [id number] [place], [place] [address]Qxgannpire and Glomerular filtration rate.predicted panel (S/P/Bld)68 mL/min/1.73m???Normal>=60[facility] on above:Order Comment: Specimen Type: BLOOD SPECIMENOrdering Facility: [facility] Address:[address] [place], [place] [address]Result Comment: Estimated Glomerular Filtration Rate (eGFR) is calculated using the 2020 CKD-EPI creatinine equation. This equation utilizes serum creatinine, sex, and age as parameters. The creatinine assay has traceable calibration to isotope dilution- mass spectrometry. Refer to KDIGO guidelines for clinical interpretation. In patients with unstable renal function, e.g. those with acute kidney injury, the eGFR may not accurately reflect actual GFR.Performed By: #### 91815-0 ####[facility] LABCLIA [id number] [place], [place] [address]Zjfvvsj [Mass/Vol]102 mg/oGIxzn39-27JckfdpjgeProMedica Memorial Hospital on above:Order Comment: Specimen Type: BLOOD SPECIMENOrdering Facility: [facility] Address:[address] [place], [place] [address]Result Comment: The [place] Diabetes Association (ADA) provides guidance for cutoff values for fasting glucose and random glucose. The ADA defines fasting as no caloric intake for at least 8 hours. Fasting plasma glucose results between 100 to 125 mg/dL indicate increased risk for diabetes (prediab etes).Fasting plasma glucose results greater than or equal to 126 mg/dL meet the criteria for diagnosis of diabetes. In the absence of unequivocal hyperglycemia, results should be confirmed by repeattesting. In a patient with classic symptoms of hyperglycemia or hyperglycemic crisis, random plasmaglucose results greater than or equal to 200 mg/dL meet the criteria for diagnosis of diabetes.Reference: Standards of Medical Care in Diabetes 2016, [place] [employer] Association. Diabetes Care. 2016.39(Suppl 1).Performed By: #### 98636-8 ####[facility] LABCLIA [id number] [place], [place] [address]Ahfoxbnog [Moles/Vol]4.7 mmol/LNormal3.7-5.1CM[facility] on above:Order Comment: Specimen Type: BLOOD SPECIMENOrdering Facility: [facility] Address:[address] [place], [place] [address]Performed By: #### 55862-4 ####[facility] LABIA [id number] [place], [place] [address]Ybimjay [Mass/Vol]6.1 g/dLLow6.3-8.0[facility] on above:Order Comment: Specimen Type: BLOOD SPECIMENOrdering Facility: [facility] Address:[address] [place], [place] [address]Performed By: #### 56077- 8 ####[facility] LABCLIA [id number] [place], [place] [address]Ojeyxr [Moles/Vol]145 mmol/ZVwtc093-561EzyeqtircProMedica Memorial Hospital on above:Order Comment: Specimen Type: BLOOD SPECIMENOrdering Facility: [facility] Address:[address] [place], [place] [address]Performed By: #### 77253-9 ####[facility] LABIA [id number] [place], [place] [address]Beja nitrogen [Mass/Vol]16 mg/dLNormal9-24[facility] on above:Order Comment: Specimen Type: BLOOD SPECIMENOrdering Facility: [facility] Address:[address] [place], [place] [address]Performed By: #### 05798-3 ####[facility] LABCLIA [id number] [place], [place] [address]Ualqbrn SerPl-mCncon 98-22-9519Lblnmzu [Mass/Vol]70.2 pg/mLNormal<115.0[facility] on above:Order Comment: Specimen Type: BLOOD SPECIMENOrdering Facility: [facility] Address:[address] [place], [place] [address]Result Comment: The Gastrin test was performed using the Siemens Immulite chemiluminescent immunometric method. Results obtained with different assay methods or kits cannot be used interchangeably.Performed By: #### 2333-3 ####[facility] LABCLIA [id number] [address]REETSEROTONIN BLDon 32-02-6635LDYEIDWKR CWBYG5332 ng/vMXhrd70-506JxyvbubtpProMedica Memorial Hospital on above:Order Comment: Specimen Type: BLOOD SPECIMENOrdering Facility: [facility] Address:[address] [place], [place] [address]Result Comment: TEST INFORMATION: Serotonin, SerumThis test was developed and its performance characteristicsdetermined by [employer]. It has not been cleared orapproved by the [place] Food and Drug Administration. This test wasperformed in a CLIA certified laboratory and is intended forclinical purposes.Performed By: [facility] [address] [place] [address]Igiwlxkbdv Director: Chapin Hollis MD, PhDCLIA Number: [id number] By: #### SERTON ####[facility] LABORATORIESIA [id number] [place], [place] [address]WNYMTQWCRS INTESTINAL POLYPEPTIDE (VIP), PLASMAon 90-16-5776DUZRMNFLJL INTESTINAL POLYPEPTIDE<20.1Kkinsn7.0-89.1CM[facility] on above:Order Comment: Specimen Type: BLOOD SPECIMENOrdering Facility: [facility] Address:[address] [place], [place] [address]Result Comment: This test was developed and its performance characteristicsdetermined by [employer]. It has not been cleared orapproved by the U.S. Food and Drug Administration. This test wasperformed in a CLIA-certified laboratory and is intended forclinical purposes.Performed By: NETurn[address] [place] [address]Sgwestsnga Director: Chapin Hollis MD, PhDCLIA Number: [id number] By: #### VIP ####[facility]ENTERIA [id number] [place], [place] [address]EVR W Auto Differential panel (Bld)on 57-87-9968Wvvfrteqq (Bld) [#/Vol]0.06 10*3/uL Normal<0.11[facility] on above:Order Comment: Specimen Type: BLOOD SPECIMENOrdering Facility: [facility] Address:[address] [place], [place] [address]Performed By: #### 54010-9 ####[facility] LABCLIA [id number] [place] [address] Basophils/100 WBC (Bld)1.6 %NormalProMedica Memorial Hospital on above: Order Comment: Specimen Type: BLOOD SPECIMENOrdering Facility: [facility] Address:[address] [place], [place] [address]Performed By: #### 28724- 8 ####[facility] LABCLIA [id number] [place], [place] [address]Rnxkfplimphs cell count method Nom (Bld)AutoNormal [facility] on above:Order Comment: Specimen Type: BLOOD SPECIMENOrdering Facility: [facility] Address:[address] [place], [place] [address]Performed By: #### 36359-6 ####[facility] LABCLIA [id number] [place], [place] [address]Bivscqcfren (Bld) [#/Vol]0.40 10*3/uLNormal<0.46[facility] on above: Order Comment: Specimen Type: BLOOD SPECIMENOrdering Facility: [facility] Address:[address] [place], [place] [address]Performed By: #### 05530- 8 ####[facility] LABCLIA [id number] [place], [place] [address]Nvnnkvenfci/100 WBC (Bld)10.6 %NormalProMedica Memorial Hospital on above:Order Comment: Specimen Type: BLOOD SPECIMENOrdering Facility: [facility] Address:[address] [place], [place] [address]Performed By: #### 32499-3 ####[facility] LABIA [id number] [place], [place] [address]Rrfokywdchc distribution width (RBC) [Ratio]12.6 %Ezfnlr97.5-15.0[facility] on above: Order Comment: Specimen Type: BLOOD SPECIMENOrdering Facility: [facility] Address:[address] [place], [place] [address]Performed By: #### 75563- 8 ####[facility] LABCLIA [id number] [place], [place] [address]Phreclhktr (Bld) [Volume fraction]33.7 %Low39.0-51.0 [facility] on above:Order Comment: Specimen Type: BLOOD SPECIMENOrdering Facility: [facility] Address:[address] [place], [place] [address]Performed By: #### 48490-0 ####[facility] LABIA [id number] [place], [place] [address]Kapypbmhbz (Bld) [Mass/Vol]10.9 g/dLLow13.0-17.0[facility] on above:Order Comment: Specimen Type: BLOOD SPECIMENOrdering Facility: [facility] Address:[address] [place], [place] [address]Performed By: #### 65510- 8 ####[facility] LABCLIA [id number] [place], [place] [address]Tpxrsbhv granulocytes (Bld) [#/Vol]10*3/uLNormal<0.10 [facility] on above:Order Comment: Specimen Type: BLOOD SPECIMENOrdering Facility: [facility] Address:[address] [place], [place] [address]Performed By: #### 19990-2 ####[facility] LABCLIA [id number] [place], [place] [address]Kughutha granulocytes/100 WBC (Bld)0.5 %NormalProMedica Memorial Hospital on above: Order Comment: Specimen Type: BLOOD SPECIMENOrdering Facility: [facility] Address:[address] [place], [place] [address]Performed By: #### 64963- 8 ####[facility] LABCLIA [id number] [place], [place] [address]Duhdawnkdqx (Bld) [#/Vol]0.65 10*3/uLLow1.00-4.00 [facility] on above:Order Comment: Specimen Type: BLOOD SPECIMENOrdering Facility: [facility] Address:[address] [place], [place] [address]Performed By: #### 81081-7 ####[facility] LABCLIA [id number] [place], [place] [address]Fcwmhyjwqbl/100 WBC (Bld)17.2 %NormalProMedica Memorial Hospital on above:Order Comment: Specimen Type: BLOOD SPECIMENOrdering Facility: [facility] Address:[address] [place], [place] [address]Performed By: #### 74214-7 ####[facility] LABCLIA [id number] [place], [place] [address]IHP (RBC) [Entitic mass]31.3 snXrzqgz31.0-34.0[facility] on above:Order Comment: Specimen Type: BLOOD SPECIMENOrdering Facility: [facility] Address:[address] [place], [place] [address]Performed By: #### 95087-5 ####[facility] LABCLIA [id number] [place], [place] [address]VVOP (RBC) [Mass/Vol]32.3 g/dHClutss22.5-36.0[facility] on above: Order Comment: Specimen Type: BLOOD SPECIMENOrdering Facility: [facility] Address:[address] [place], [place] [address]Performed By: #### 48369- 8 ####[facility] LABIA [id number] [place], [place] [address]FRG (RBC) [Entitic vol]96.8 sKNqfmci81.0-100.0[facility] on above:Order Comment: Specimen Type: BLOOD SPECIMENOrdering Facility: [facility] Address:[address] [place], [place] [address]Performed By: #### 72406-8 ####[facility] LABIA [id number] [place], [place] [address]Sgrxqnrdt (Bld) [#/Vol]0.55 10*3/uLNormal<0.87[facility] on above:Order Comment: Specimen Type: BLOOD SPECIMENOrdering Facility: [facility] Address:[address] [place], [place] [address]Performed By: #### 02266- 8 ####[facility] LABIA [id number] [place], [place] [address]Gzupvxawg/100 WBC (Bld)14.6 %NormalProMedica Memorial Hospital on above:Order Comment: Specimen Type: BLOOD SPECIMENOrdering Facility: [facility] Address:[address] [place], [place] [address]Performed By: #### 37729-6 ####[facility] LABIA [id number] [place], [place] [address]Kujlpygxowy (Bld) [#/Vol]2.09 10*3/uLNormal1.45-7.50[facility] on above:Order Comment: Specimen Type: BLOOD SPECIMENOrdering Facility: [facility] Address:[address] [place], [place] [address]Performed By: #### 03219-0 ####[facility] LABIA [id number] [place], [place] [address]Kmzgnrmxaal/100 WBC (Bld)55.5 %NormalProMedica Memorial Hospital on above:Order Comment: Specimen Type: BLOOD SPECIMENOrdering Facility: [facility] Address:[address] [place], [place] [address]Performed By: #### 72338-5 ####[facility] LABIA [id number] [place], [place] [address]Sxwnvgdxz RBC (Bld) [#/Vol] 10*3/uLNormal<0.01[facility] on above:Order Comment: Specimen Type: BLOOD SPECIMENOrdering Facility: [facility] Address:[address] [place], [place] [address]Performed By: #### 02838-4 ####[facility] LABCLIA [id number] [place], [place] [address]Qfwcbxkdi RBC/100 WBC (Bld) [Ratio]0.0 /100 WBCNormal [facility] on above:Order Comment: Specimen Type: BLOOD SPECIMENOrdering Facility: [facility] Address:[address] [place], [place] [address]Performed By: #### 21906-5 ####[facility] LABCLIA [id number] [place], [place] [address]Qyqjigmt mean volume (Bld) [Entitic vol]10.4 fLNormal9.0-12.7CM[facility] on above:Order Comment: Specimen Type: BLOOD SPECIMENOrdering Facility: [facility] Address:[address] [place] [address] Performed By: #### 31580-5 ####[facility] LABCLIA [id number] [place], [place] [address]Trkviiebm (Bld) [#/Vol]241 10*3/mEJjosdb976-081QamvxikruProMedica Memorial Hospital on above:Order Comment: Specimen Type: BLOOD SPECIMENOrdering Facility: [facility] Address:[address] [place], [place] [address]Performed By: #### 27969-8 ####[facility] LABCLIA [id number] [place], [place] [address]WRH (Bld) [#/Vol]3.48 10*6/uLLow4.20-6.00[facility] on above:Order Comment: Specimen Type: BLOOD SPECIMENOrdering Facility: [facility] Address:[address] [place], [place] [address]Performed By: #### 02355-3 ####[facility] LABCLIA [id number] [place], [place] [address]ZPR (Bld) [#/Vol]3.77 10*3/uL Normal3.70-11.00[facility] on above:Order Comment: Specimen Type: BLOOD SPECIMENOrdering Facility: [facility] Address:[address] [place], [place] [address]Performed By: #### 49787-9 ####[facility] LABCLIA [id number] [place], [place] [address]FQB CBC W AUTO DIFF BLDon 69-42-1065Zfwpvnapz/100 WBC (Bld)1.6 %[facility] HealthcareCC[facility] BASOPHILS # BLD AUTO0.06NINFNOMS HealthcareCCF DIFFERENTIAL METHOD BLDAutoNOMSullivan County Memorial Hospital EOSINOPHIL # BLD AUTO0.4NILivingston Regional Hospital LYMPHOCYTES # BLD AUTO0.65LowSaint Luke's Health System MONOCYTES # BLD AUTO0.55NILivingston Regional Hospital NEUTROPHILS # BLD AUTO2.09[facility] NRBC # BLD AUTO<0.01NINFSaint Luke's Health System NRBC/100 WBC BLD-RTO0/100 WBCSaint Luke's Health System PLATELET # BLD [id number] Luke's Health System PMV BLD AUTO10.4 fL9.0 - 12.7 fLSaint Luke's Health System WBC # BLD AUTO3.77[facility] CenterEosinophils/100 WBC (Bld)10.6 %[facility] Medical CenterErythrocyte distribution width (RBC) [Ratio]12.6 %11.5 - 15.0 %[facility] Medical CenterHematocrit (Bld) [Volume fraction]33.7 %Low39.0 - 51.0 % [facility] Medical CenterHemoglobin (Bld) [Mass/Vol]10.9 g/dLLow13.0 - 17.0 g/dLCameron Regional Medical Center GRANULOCYTES # BLD AUTO<0.03NIRegional [facility] of [facility] GRANULOCYTES/LEUK NFR BLD AUTO0.5 %[facility] Medical CenterInterpretation and review of laboratory resultsAbnormalNorthwest Medical CenterLymphocytes/100 WBC (Bld)17.2 %[facility] HealthcareH (RBC) [Entitic mass]31.3 pg26.0 - 34.0 pgCitizens Memorial HealthcareHC (RBC) [Mass/Vol]32.3 g/dL30.5 - 36.0 g/dLCitizens Memorial HealthcareV (RBC) [Entitic vol]96.8 fL 80.0 - 100.0 fLNorthwest Medical CenterMonocytes/100 WBC (Bld)14.6 %[facility] Neutrophils/100 WBC (Bld)55.5 %[facility] Medical CenterRBC (Bld) [#/Vol]3.48 10*6/uLLow 4.20 - 6.00 m/uLNorthwest Medical CenterSpecimen Type: BLOOD SPECIMEN [facility] Address: [address] [place] [address] Original Ordering Provider: ROSELYN MORLEYCarondelet HealthOVSThedacare Medical Center Shawano 56-79-3502FGNWIZMepbaqGonwzjhwhTriHealthon 08-13-2024 Chromogranin A [Mass/Vol]200.4 ng/mLHigh<187.0[facility] on above:Order Comment: Specimen Type: BLOOD SPECIMENOrdering Facility: [facility] Address:[address] [place], [place] [address]Result Comment: The Chromogranin A test was performed using the Savorfull CgA II KRYPTOR method. Results obtained with different assay methods or kits cannot be used interchangeably.Performed By: #### [id number] ####[facility] LABCLIA [id number] [place] [address] [place] OF AMERICAComprehensive metabolic 2000 panelon [id number] [Mass/Vol]4.1 g/dL Normal3.9-4.9CM[facility] on above:Order Comment: Specimen Type: BLOOD SPECIMENOrdering Facility: [facility] Address:[address] [place], [place] [address]Performed By: #### [id number] ####[facility] LABCLIA [id number] [place] [address] ALP [Catalytic activity/Vol]118 U/QFqag30-324QjfsehnquProMedica Memorial Hospital on above:Order Comment: Specimen Type: BLOOD SPECIMENOrdering Facility: [facility] Address:[address] [place] [address] Performed By: #### 01526-6 ####[facility] LABCLIA [id number] [place], [place] [address]CKX [Catalytic activity/Vol]13 U/UEiqmbk43-96DplxaslueProMedica Memorial Hospital on above:Order Comment: Specimen Type: BLOOD SPECIMENOrdering Facility: [facility] Address:[address] [place], [place] [address]Performed By: #### 84013-0 ####[facility] LABCLIA [id number] [place] [address] Anion gap [Moles/Vol]9 mmol/LNormal8-15[facility] on above:Order Comment: Specimen Type: BLOOD SPECIMENOrdering Facility: [facility] Address:[address] [place], [place] [address]Performed By: #### 55335-2 ####[facility] LABCLIA [id number] [place], [place] [address]GNS [Catalytic activity/Vol]20 U/YBdzmii80-18 [facility] on above:Order Comment: Specimen Type: BLOOD SPECIMENOrdering Facility: [facility] Address:[address] [place], [place] [address]Performed By: #### 91586-2 ####[facility] LABCLIA [id number] [place], [place] [address]Eopuquadk [Mass/Vol]0.3 mg/dLNormal0.2-1.3CMary [facility] on above:Order Comment: Specimen Type: BLOOD SPECIMENOrdering Facility: [facility] Address:[address] [place], [place] [address]Performed By: #### 93177- 8 ####[facility] LABCLIA [id number] [place], [place] [address]Vqwxqfc [Mass/Vol]8.4 mg/dLLow8.5-10.2CMary [facility] Hospital on above:Order Comment: Specimen Type: BLOOD SPECIMENOrdering Facility: [facility] Address:[address] [place], [place] [address]Performed By: #### 78901-3 ####[facility] LABCLIA [id number] [place], [place] [address]Alewkvfs [Moles/Vol]108 mmol/L Evmb42-975CpcbewbyqProMedica Memorial Hospital on above:Order Comment: Specimen Type: BLOOD SPECIMENOrdering Facility: [facility] Address:[address] [place], [place] [address]Performed By: #### 62138-4 ####[facility] LABCLIA [id number] [place] [address] CO2 [Moles/Vol]22 mmol/DCdcvvz30-82FitrloryzProMedica Memorial Hospital on above: Order Comment: Specimen Type: BLOOD SPECIMENOrdering Facility: [facility] Address:[address] [place], [place] [address]Performed By: #### 93848- 8 ####[facility] LABCLIA [id number] [place], [place] [address]Cwmzqkmfbs [Mass/Vol]1.03 mg/dLNormal0.73-1.22[facility] on above:Order Comment: Specimen Type: BLOOD SPECIMENOrdering Facility: [facility] Address:[address] [place], [place] [address]Performed By: #### 73108-9 ####[facility] LABIA [id number] [place], [place] [address]Ikougkncqw and Glomerular filtration rate.predicted panel (S/P/Bld)79 mL/min/1.73m???Normal>=60 [facility] on above:Order Comment: Specimen Type: BLOOD SPECIMENOrdering Facility: [facility] Address:[address] [place], [place] [address]Result Comment: Estimated Glomerular Filtration Rate (eGFR) is calculated using the 2020 CKD-EPI creatinine equation. This equation utilizes serum creatinine, sex, and age as parameters. The creatinine assay has traceable calibration to isotope dilution-mass spectrometry. Refer to KDIGO guidelines for clinical interpretation. In patients with unstable renal function, e.g. those with acute kidney injury, the eGFR may not accurately reflect actual GFR.Performed By: #### 10720-1 ####[facility] LABCLIA [id number] [place], [place] [address]Unpydfq [Mass/Vol]99 mg/gYUbbpqp41-46ChffqvuivProMedica Memorial Hospital on above:Order Comment: Specimen Type: BLOOD SPECIMENOrdering Facility: [facility] Address:[address] [place], [place] [address]Result Comment: The [place] Diabetes Association (ADA) provides guidance for cutoff values for fast ing glucose and random glucose. The ADA defines fasting as no caloric intake for at least 8 hours. Fasting plasma glucose results between 100 to 125 mg/dL indicate increased risk for diabetes (prediabetes).Fasting plasma glucose results greater than or equal to 126 mg/dL meet the criteria for diagnosis of diabetes. In the absence of unequivocal hyperglycemia, results should be confirmed by repeattesting. In a patient with classic symptoms of hyperglycemia or hyperglycemic crisis, random plasmaglucose results greater than or equal to 200 mg/dL meet the criteria for diagnosis of diabetes.Reference: Standards of Medical Care in Diabetes 2016, [place] Diabetes Association. Diabetes Care. 2016.39(Suppl 1).Performed By: #### 44658-3 ####[facility] LABCLIA [id number] [place], [place] [address]Bmmqpwmyo [Moles/Vol]5.0 mmol/LNormal3.7-5.1CM[facility] on above: Order Comment: Specimen Type: BLOOD SPECIMENOrdering Facility: [facility] Address:[address] [place], [place] [address]Performed By: #### 15712- 8 ####[facility] LABCLIA [id number] [place], [place] [address]Whwmwtq [Mass/Vol]6.4 g/dLNormal6.3-8.0[facility] on above:Order Comment: Specimen Type: BLOOD SPECIMENOrdering Facility: [facility] Address:[address] [place], [place] [address]Performed By: #### 86109-2 ####[facility] LABCLIA [id number] [place], [place] [address]Yxrndh [Moles/Vol]139 mmol/L Diqtxy871-570QezcwaofnProMedica Memorial Hospital on above:Order Comment: Specimen Type: BLOOD SPECIMENOrdering Facility: [facility] Address:[address] [place] [address]Ubngjoxek By: #### 81769-8 ####[facility] LABCLIA [id number] [place] [address] Urea nitrogen [Mass/Vol]18 mg/dLNormal9-24[facility] on above:Order Comment: Specimen Type: BLOOD SPECIMENOrdering Facility: [facility] Address:[address] [place], [place] [address]Performed By: #### 62033-4 ####[facility] LABCLIA [id number] [place], [place] [address]Hunarjn SerPl-mCncon 93-40-6479Tizeymz [Mass/Vol] 50.5 pg/mLNormal<115.0[facility] on above:Order Comment: Specimen Type: BLOOD SPECIMENOrdering Facility: [facility] Address:[address] [place], [place] [address]Result Comment: The Gastrin test was performed using the Siemens Immulite chemiluminescent immunometric method. Results obtained with different assay methods or kits cannot be used interchangeably.Performed By: #### 2333-3 ####[facility] LABCLIA [id number] [place] [address] [place] STATES OF AMERICASEROTONIN BLDon 11-38-1452AJDIHBLDJ TFMWT5658 ng/lPQlzj61-732OdftnnybrProMedica Memorial Hospital on above:Order Comment: Specimen Type: BLOOD SPECIMENOrdering Facility: [facility] Address:[address] [place], [place] [address]Result Comment: TEST INFORMATION: Serotonin, SerumThis test was developed and its performance characteristicsdetermined by [facility]. It has not been cleared orapproved by the US Food and Drug Administration. This test wasperformed in a CLIA certified laboratory and is intended forclinical purposes.Performed By: [facility] [place] [address]Osvmbzlqio Director: Chapin Hollis MD, PhDCLIA Number: [id number] By: #### SERTON ####[facility] LABORATORIESIA [id number] [place], [place] [address]KHRBUBLAAD INTESTINAL POLYPEPTIDE (VIP), PLASMAon 80-27-2110IQZZXETDCY INTESTINAL EQWJBQVAITC03.1 pg/mLNormal0.0-89.1 [facility] on above:Order Comment: Specimen Type: BLOOD SPECIMENOrdering Facility: [facility] Address:[address] [place], [place] [address]RUTHIE [place], [place] [address]Result Comment: This test was developed and its performance characteristicsdetermined by [facility]. It has not been cleared orapproved by the U.S. Food and Drug Administration. This test wasperformed in a CLIA-certified laboratory and is intended forclinical purposes.Performed By: [facility] [place], [place] [address]Atgzwxveqg Director: Chapin Hollis MD, PhDCLIA Number: [id number] By: #### VIP ####[facility]ENTERCLIA [id number] [place], [place] [address]LHJS on 78-00-5974CLSSYedxcgBlnxannwb Clinic ClevelandNM PET/CT NEUROENDOCRINE WBon 08-04-2024* * *Final Report* * * DATE OF [...] calcified implant representing biopsy-proven neuroendocrine tumor. ANILA D (more content not included)...CCFRadiology, Radiologist, - 08/04/2024 * * *Final Report* * * DATE OF EXAM: Aug 03 2024 8:45AM [facility] 0094 - [place] PET/CT NEUROENDOCRINE WB [...] adjacent partially calcified implant representing biopsy-proven neuroendocrine t (more content not included)...[facility] PET/CT NEUROENDOCRINE WBOrdered By: Radiologist Radiology on 13-53-7545LMGJNorthwest Medical Center Work Phone: NM PET/CT NEUROENDOCRINE WBon 50-58-6951WA PET/CT NEUROENDOCRINE WBNormalCOhioHealth Van Wert Hospitaliology Study observation (narrative)[facility] SEROTONIN BLDon 01-47-2583XRR SEROTONIN INPQJ0874 ng/jALdhg56 - 220 ng/mLNOMS HealthcareComment on above:TEST INFORMATION: Serotonin, Serum This test was developed and its performance characteristics determined by [facility]. It has not been cleared or approved by the US Food and Drug Administration. This test was performed in a CLIA certified laboratory and is intended for clinical purposes. Performed By: [facility] [address] [place], [place] [address] Telemetry Nurse: Chapin Hollis MD, PhD CLIA Number: [id number] Interpretation and review of laboratory resultsAbSelect Specialty HospitalSpecimen Type: BLOOD SPECIMEN [facility] Address: [address] [place] [address] Original Ordering Provider: [facility] VASOACTIVE INTESTINAL PEPTIDEon 30-76-1634EURNOKJNQM INTESTINAL QUXQSYBZTYA39.7 pg/mL0.0 - 89.1 pg/mLNOMS HealthcareComment on above:This test was developed and its performance characteristics determined by [facility]. It has not been cleared or approved by the U.S. Food and Drug Administration. This test was performed in a CLIA-certified laboratory and is intended for clinical purposes. Performed By: [facility] [address] [place] [address] Telemetry Nurse: Chapin Hollis MD, PhD CLIA Number: [id number] Specimen Type: BLOOD SPECIMEN [facility] Address: [address] [place] [address] Original Ordering Provider: [facility] [facility] CGA SERPL-MCNCon 91-03-3239HCJ CGA SERPL-OGNA142.9 ng/mLHighNINF - 187.0 ng/mLNOMS HealthcareComment on above:The Chromogranin A test was performed using the Savorfull CgA II KRYPTOR method. Results obtained withdifferent assay methods or kits cannot be used interchangeably.Interpretation and review of laboratory resultsAbSelect Specialty HospitalSpecimen Type: BLOOD SPECIMEN [facility] Address: [address] [place] [address] Original Ordering Provider: [facility]aleCCF GASTRIN SERPL-MCNCon 27-28-0357ODR GASTRIN SERPL-MCNC53.7 pg/mLNINF - 115.0 pg/mLNOMS HealthcareComment on above:The Gastrin test was performed using the Siemens Immulite chemiluminescent immunometric method. Results obtained with different assay methods or kits cannot be used interchangeably.Specimen Type: BLOOD SPECIMEN [facility] Address: [address] [place] [address] Original Ordering Provider: [facility] W Auto Differential panel (Bld)on 42-13-0650Gqhysgkis (Bld) [#/Vol]0.05 10*3/uLNormal <0.11CM[facility] on above:Order Comment: Specimen Type: BLOOD SPECIMENOrdering Facility: [facility] Address:[address] [place], [place] [address]Performed By: #### 43852-6 ####[facility] LABCLIA [id number] [place] [address] Basophils/100 WBC (Bld)0.9 %NormalProMedica Memorial Hospital on above: Order Comment: Specimen Type: BLOOD SPECIMENOrdering Facility: [facility] Address:[address] [place], [place] [address]Performed By: #### 46571- 8 ####[facility] LABCLIA [id number] [place], [place] [address]Avokmbzwkltq cell count method Nom (Bld)AutoNormal [facility] on above:Order Comment: Specimen Type: BLOOD SPECIMENOrdering Facility: [facility] Address:[address] [place], [place] [address]Performed By: #### 61434-4 ####[facility] LABCLIA [id number] [place], [place] [address]Evhsydajday (Bld) [#/Vol]0.34 10*3/uLNormal<0.46[facility] on above: Order Comment: Specimen Type: BLOOD SPECIMENOrdering Facility: [facility] Address:[address] [place], [place] [address]Performed By: #### 97153- 8 ####[facility] LABCLIA [id number] [place], [place] [address]Wvotcqcsxbo/100 WBC (Bld)6.4 %NormalProMedica Memorial Hospital on above:Order Comment: Specimen Type: BLOOD SPECIMENOrdering Facility: [facility] Address:[address] [place], [place] [address]Performed By: #### 99395-1 ####[facility] LABIA [id number] [place], [place] [address]Aprfzuewvhk distribution width (RBC) [Ratio]12.3 %Sqyalm35.5-15.0[facility] on above: Order Comment: Specimen Type: BLOOD SPECIMENOrdering Facility: [facility] Address:[address] [place], [place] [address]Performed By: #### 10826- 8 ####[facility] LABIA [id number] [place], [place] [address]Zndgmsmtes (Bld) [Volume fraction]32.2 %Low39.0-51.0 [facility] on above:Order Comment: Specimen Type: BLOOD SPECIMENOrdering Facility: [facility] Address:[address] [place], [place] [address]Performed By: #### 06129-9 ####[facility] LABIA [id number] [place], [place] [address]Aotmefqpfz (Bld) [Mass/Vol]11.0 g/dLLow13.0-17.0[facility] on above:Order Comment: Specimen Type: BLOOD SPECIMENOrdering Facility: [facility] Address:[address] [place], [place] [address]Performed By: #### 30482- 8 ####[facility] LABCLIA [id number] [place], [place] [address]Dovkchbs granulocytes (Bld) [#/Vol]0.05 10*3/uLNormal <0.10[facility] on above:Order Comment: Specimen Type: BLOOD SPECIMENOrdering Facility: [facility] Address:[address] [place], [place] [address]Performed By: #### 69140-3 ####[facility] LABCLIA [id number] [place], [place] [address]Hzmnhbhz granulocytes/100 WBC (Bld)0.9 %[facility] on above: Order Comment: Specimen Type: BLOOD SPECIMENOrdering Facility: [facility] Address:[address] [place], [place] [address]Performed By: #### 83986- 8 ####[facility] LABIA [id number] [place], [place] [address]Rrgujcqmqng (Bld) [#/Vol]0.65 10*3/uLLow1.00-4.00 [facility] on above:Order Comment: Specimen Type: BLOOD SPECIMENOrdering Facility: [facility] Address:[address] [place], [place] [address]Performed By: #### 13799-9 ####[facility] LABIA [id number] [place], [place] [address]Wzphyianxnj/100 WBC (Bld)12.2 %NormalProMedica Memorial Hospital on above:Order Comment: Specimen Type: BLOOD SPECIMENOrdering Facility: [facility] Address:[address] [place], [place] [address]Performed By: #### 15475-0 ####[facility] LABCLIA [id number] [place], [place] [address]OMM (RBC) [Entitic mass]32.4 aiRbjgkv06.0-34.0[facility] on above:Order Comment: Specimen Type: BLOOD SPECIMENOrdering Facility: [facility] Address:[address] [place], [place] [address]Performed By: #### 57081-6 ####[facility] LABCLIA [id number] [place], [place] [address]ATCE (RBC) [Mass/Vol]34.2 g/lMCsvwju03.5-36.0[facility] on above: Order Comment: Specimen Type: BLOOD SPECIMENOrdering Facility: [facility] Address:[address] [place], [place] [address]Performed By: #### 27906- 8 ####[facility] LABCLIA [id number] [place], [place] [address]FQH (RBC) [Entitic vol]95.0 iEXqmvxk81.0-100.0[facility] on above:Order Comment: Specimen Type: BLOOD SPECIMENOrdering Facility: [facility] Address:[address] [place], [place] [address]Performed By: #### 46835-5 ####[facility] LABCLIA [id number] [place], [place] [address]Pwguzqnpn (Bld) [#/Vol]0.67 10*3/uLNormal<0.87[facility] on above:Order Comment: Specimen Type: BLOOD SPECIMENOrdering Facility: [facility] Address:[address] [place], [place] [address]Performed By: #### 46330- 8 ####[facility] LABCLIA [id number] [place], [place] [address]Odtkcteoq/100 WBC (Bld)12.6 %NormalProMedica Memorial Hospital on above:Order Comment: Specimen Type: BLOOD SPECIMENOrdering Facility: [facility] Address:[address] [place], [place] [address]Performed By: #### 98168-2 ####[facility] LABCLIA [id number] [place], [place] [address]Asnyiorktbz (Bld) [#/Vol]3.56 10*3/uLNormal1.45-7.50[facility] on above:Order Comment: Specimen Type: BLOOD SPECIMENOrdering Facility: [facility] Address:[address] [place], [place] [address]Performed By: #### 84751-4 ####[facility] LABCLIA [id number] [place], [place] [address]Yxdwwgtepbp/100 WBC (Bld)67.0 %NormalProMedica Memorial Hospital on above:Order Comment: Specimen Type: BLOOD SPECIMENOrdering Facility: [facility] Address:[address] [place], [place] [address]Performed By: #### 52854-7 ####[facility] LABCLIA [id number] [place], [place] [address]Wjixkcpld RBC (Bld) [#/Vol] 10*3/uLNormal<0.01[facility] on above:Order Comment: Specimen Type: BLOOD SPECIMENOrdering Facility: [facility] Address:[address] [place], [place] [address]Performed By: #### 83878-9 ####[facility] LABCLIA [id number] [place], [place] [address]Mgzhjjjcs RBC/100 WBC (Bld) [Ratio]0.0 /100 WBCNormal [facility] on above:Order Comment: Specimen Type: BLOOD SPECIMENOrdering Facility: [facility] Address:[address] [place], [place] [address]Performed By: #### 43691-4 ####[facility] LABCLIA [id number] [place], [place] [address]Ratrlljm mean volume (Bld) [Entitic vol]10.7 fLNormal9.0-12.7[facility] on above:Order Comment: Specimen Type: BLOOD SPECIMENOrdering Facility: [facility] Address:[address] [place] [address] Performed By: #### 62531-7 ####[facility] LABCLIA [id number] [place], [place] [address]Ffdnhzvwk (Bld) [#/Vol]193 10*3/dETqbgqc634-887QguygkmaqProMedica Memorial Hospital on above:Order Comment: Specimen Type: BLOOD SPECIMENOrdering Facility: [facility] Address:[address] [place], [place] [address]Performed By: #### 73527-9 ####[facility] LABCLIA [id number] [place], [place] [address]JVZ (Bld) [#/Vol]3.39 10*6/uLLow4.20-6.00[facility] on above:Order Comment: Specimen Type: BLOOD SPECIMENOrdering Facility: [facility] Address:[address] [place], [place] [address]Performed By: #### 88897-0 ####[facility] LABCLIA [id number] [place], [place] [address]HAB (Bld) [#/Vol]5.32 10*3/uL Normal3.70-11.00[facility] on above:Order Comment: Specimen Type: BLOOD SPECIMENOrdering Facility: [facility] Address:[address] [place], [place] [address]Performed By: #### 01013-4 ####[facility] LABCLIA [id number] [place], [place] [address]HPN CBC W AUTO DIFF BLDon 93-64-7069Oznwsovih/100 WBC (Bld)0.9 %NOMS HealthcareCCF BASOPHILS # BLD AUTO0.05NILivingston Regional Hospital DIFFERENTIAL METHOD BLDAutoNOMSullivan County Memorial Hospital EOSINOPHIL # BLD AUTO0.34NILivingston Regional Hospital LYMPHOCYTES # BLD AUTO0.65LowSaint Luke's Health System MONOCYTES # BLD AUTO0.67NILivingston Regional Hospital NEUTROPHILS # BLD AUTO3.56[facility] NRBC # BLD AUTO<0.01NINFMadison Medical CenterF NRBC/100 WBC BLD-RTO0/100 WBCSaint Luke's Health System PLATELET # BLD OBMQ246BFEKSaint Luke's Health System PMV BLD AUTO10.7 fL9.0 - 12.7 fLSaint Luke's Health System WBC # BLD AUTO5.32Northwest Medical CenterEosinophils/100 WBC (Bld)6.4 %[facility]west Medical CenterErythrocyte distribution width (RBC) [Ratio]12.3 %11.5 - 15.0 %[facility] Medical CenterHematocrit (Bld) [Volume fraction]32.2 %Low39.0 - 51.0 % [facility] Medical CenterHemoglobin (Bld) [Mass/Vol]11 g/dLLow13.0 - 17.0 g/dLCameron Regional Medical Center GRANULOCYTES # BLD AUTO0.05NIRegional Hospital of Jackson GRANULOCYTES/LEUK NFR BLD AUTO0.9 %[facility] Medical CenterInterpretation and review of laboratory resultsAbnormalNorthwest Medical CenterLymphocytes/100 WBC (Bld)12.2 %[facility]izens Memorial HealthcareH (RBC) [Entitic mass]32.4 pg26.0 - 34.0 pgCitizens Memorial HealthcareHC (RBC) [Mass/Vol]34.2 g/dL30.5 - 36.0 g/dLCitizens Memorial HealthcareV (RBC) [Entitic vol]95 fL 80.0 - 100.0 fLNorthwest Medical CenterMonocytes/100 WBC (Bld)12.6 %[facility] Neutrophils/100 WBC (Bld)67 %[facility] Medical CenterRBC (Bld) [#/Vol]3.39 10*6/uLLow4.20 - 6.00 m/uLNorthwest Medical CenterSpecimen Type: BLOOD SPECIMEN [facility] Address: [address] [place] [address] Original Ordering Provider: ROSELYN NARANJOLINISYNCNorthwest Medical CenterCCF COMP METAB 2000 PNL SERPLon 82-35-0743Agxoytk [Mass/Vol]4.1 g/dL3.9 - 4.9 g/dLNOMS HealthcareALP [Catalytic activity/Vol]126 U/LHigh38 - 113 U/LNOMS HealthcareALT [Catalytic activity/Vol]13 U/L10 - 54 U/LNOMS HealthcareAnion gap [Moles/Vol]11 mmol/L8 - 15 mmol/LNOMS HealthcareCalcium [Mass/Vol]8.7 mg/dL8.5 - 10.2 mg/dL NOMS HealthcareCCF AST SERPL-CCNC25 U/L14 - 40 U/LNOMS HealthcareCCF BILIRUB SERPL-MCNC0.5 mg/dL0.2 - 1.3 mg/dLNOWY HealthcareCCF PROT SERPL-MCNC7 g/dL6.3 - 8.0 g/dLNOMS HealthcareChloride [Moles/Vol]104 mmol/L98 - 107 mmol/LNOMS HealthcareCO2 [Moles/Vol]20 mmol/LLow22 - 30 mmol/LNOMS HealthcareCreatinine [Mass/Vol]1.04 mg/dL0.73 - 1.22 mg/dLNOWY HealthcareGFR/1.73 sq M.predicted CKD- EPI (S/P/Bld) [Vol rate/Area]78- PINFNOWY HealthcareComment on above:Estimated Glomerular Filtration Rate (eGFR) is calculated using the 2020 CKD-EPI creatinine equation. This equation utilizes serum creatinine, sex, and age as parameters. The creatinine assay has traceable calibration to isotope dilution- mass spectrometry. Refer to KDIGO guidelines for clinical interpretation. In patients with unstable renal function, e.g. those with acute kidney injury, the eGFRmay not accurately reflect actual GFR.Glucose [Mass/Vol]108 mg/rBUybj67 - 99 mg/dLNOWY HealthcareComment on above:The [place] Diabetes Association (ADA) provides guidance for cutoff values for fasting glucose andrandom glucose. The ADA defines fasting as no caloric intake for at least 8 hours. Fasting plasma gl ucose results between 100 to 125 mg/dL indicate [...] Standards of Medical Care in Diabetes 2016, [place] [employer]. Diabetes Care. 2016.39(Suppl 1). Interpretation and review of laboratory resultsAbnormalNOMS HealthcarePotassium [Moles/Vol]4.4 mmol/L3.7 - 5.1 mmol/LNOMS HealthcareSodium [Moles/Vol]135 mmol/L Wwr375 - 144 mmol/LNOMS HealthcareUrea nitrogen [Mass/Vol]25 mg/dLHigh9 - 24 mg/dLNOWY HealthcareSpecimen Type: BLOOD SPECIMEN [facility] Address: [address] [place] [address] Original Ordering Provider: ROSELYN ELISEISYPsychiatric Hospital at VanderbiltCNOVSPon 35-95-1092UGFVAJIhnkvhNvydwcnag Clinic ClevelandCNPNon 65-87-9808BTBWKznhvm [facility] Medical CenterCgA SerPl-mCncon 93-82-7465Akvazmdxmtme A [Mass/Vol] 213.9 ng/mLHigh<187.0[facility] on above:Order Comment: Specimen Type: BLOOD SPECIMENOrdering Facility: [facility] Address:[address] [place], [place] [address]Result Comment: The Chromogranin A test was performed using the AffinioS CgA II KRYPTOR method. Results obtained with different assay methods or kits cannot be used interchangeably.Performed By: #### 9811-1 ####[facility] LABCLIA [id number] [facility] HOSPITALNFLKWSNLSLH71PGIZSCVQY, [place] [address] [place] STATES OF AMERICAComprehensive metabolic 2000 panelon 65-58-6234Egbscue [Mass/Vol]4.1 g/dLNormal3.9-4.9[facility] on above:Order Comment: Specimen Type: BLOOD SPECIMENOrdering Facility: [facility] Address:[address] [place], [place] [address]Performed By: #### 01451-6 ####[facility] LABCLIA [id number] [place], [place] [address]IVW [Catalytic activity/Vol]126 U/GSeyz72-109JgdzzspkuProMedica Memorial Hospital on above:Order Comment: Specimen Type: BLOOD SPECIMENOrdering Facility: [facility] Address:[address] [place], [place] [address]Performed By: #### 70521-2 ####[facility] LABCLIA [id number] [place] [address] ALT [Catalytic activity/Vol]13 U/YGxrmzn43-24OjpbxgqzfProMedica Memorial Hospital on above:Order Comment: Specimen Type: BLOOD SPECIMENOrdering Facility: [facility] Address:[address] [place] [address] Performed By: #### 50196-5 ####[facility] LABCLIA [id number] [place], [place] [address]Tahlb gap [Moles/Vol]11 mmol/L Normal8-15[facility] on above:Order Comment: Specimen Type: BLOOD SPECIMENOrdering Facility: [facility] Address:[address] [place], [place] [address]Performed By: #### 50032-5 ####[facility] LABCLIA [id number] [place] [address] AST [Catalytic activity/Vol]25 U/MGxpcxv31-04DnelmlyewProMedica Memorial Hospital on above:Order Comment: Specimen Type: BLOOD SPECIMENOrdering Facility: [facility] Address:[address] [place] [address] Performed By: #### 96045-1 ####[facility] LABIA [id number] [place], [place] [address]Ttvvxbjky [Mass/Vol]0.5 mg/dL Normal0.2-1.3[facility] on above:Order Comment: Specimen Type: BLOOD SPECIMENOrdering Facility: [facility] Address:[address] [place], [place] [address]Performed By: #### 29488-8 ####[facility] LABCLIA [id number] [place] [address] Calcium [Mass/Vol]8.7 mg/dLNormal8.5-10.2CMary [facility] on above:Order Comment: Specimen Type: BLOOD SPECIMENOrdering Facility: [facility] Address:[address] [place], [place] [address]Performed By: #### 52826-2 ####[facility] LABCLIA [id number] [place], [place] [address]Itxwieje [Moles/Vol]104 mmol/RJfmvvs06-743HjbtpngvuProMedica Memorial Hospital on above:Order Comment: Specimen Type: BLOOD SPECIMENOrdering Facility: [facility] Address:[address] [place], [place] [address]Performed By: #### 90514-1 ####[facility] LABCLIA [id number] [place], [place] [address]GO0 [Moles/Vol] 20 mmol/FNwb75-92QeoftqtaaProMedica Memorial Hospital on above:Order Comment: Specimen Type: BLOOD SPECIMENOrdering Facility: [facility] Address:[address] [place], [place] [address]Performed By: #### 34709-2 ####[facility] LABCLIA [id number] [place], [place] [address]Hhmkfdoygr [Mass/Vol]1.04 mg/dLNormal0.73-1.22[facility] on above:Order Comment: Specimen Type: BLOOD SPECIMENOrdering Facility: [facility] Address:[address] [place], [place] [address]Performed By: #### 89677-0 ####[facility] LABCLIA [id number] [place], [place] [address]Eonjilesmb and Glomerular filtration rate.predicted panel (S/P/Bld)78 mL/min/1.73m???Normal>=60 [facility] on above:Order Comment: Specimen Type: BLOOD SPECIMENOrdering Facility: [facility] Address:[address] [place] [address]Iohgny Comment: Estimated Glomerular Filtration Rate (eGFR) is calculated using the 2020 CKD-EPI creatinine equation. This equation utilizes serum creatinine, sex, and age as parameters. The creatinine assay has traceable calibration to isotope dilution-mass spectrometry. Refer to KDIGO guidelines for clinical interpretation. In patients with unstable renal function, e.g. those with acute kidney injury, the eGFR may not accurately reflect actual GFR.Performed By: #### 97644-8 ####[facility] LABCLIA [id number] [place], [place] [address]Hfwtudy [Mass/Vol]108 mg/zBDsom09-29PctmmzrrmProMedica Memorial Hospital on above:Order Comment: Specimen Type: BLOOD SPECIMENOrdering Facility: [facility] Address:[address] [place] [address]Bxfmei Comment: The [place] Diabetes Association (ADA) provides guidance for cutoff values for fast ing glucose and random glucose. The ADA defines fasting as no caloric intake for at least 8 hours. Fasting plasma glucose results between 100 to 125 mg/dL indicate increased risk for diabetes (prediabetes).Fasting plasma glucose results greater than or equal to 126 mg/dL meet the criteria for diagnosis of diabetes. In the absence of unequivocal hyperglycemia, results should be confirmed by repeattesting. In a patient with classic symptoms of hyperglycemia or hyperglycemic crisis, random plasmaglucose results greater than or equal to 200 mg/dL meet the criteria for diagnosis of diabetes.Reference: Standards of Medical Care in Diabetes 2016, [place] Diabetes Association. Diabetes Care. 2016.39(Suppl 1).Performed By: #### 72228-8 ####[facility] LABCLIA [id number] [place], [place] [address]Qdzbqbebj [Moles/Vol]4.4 mmol/LNormal3.7-5.1CMary [facility] on above: Order Comment: Specimen Type: BLOOD SPECIMENOrdering Facility: [facility] Address:[address] [place], [place] [address]Performed By: #### 01148- 8 ####[facility] LABCLIA [id number] [place], [place] [address]Vbyvluc [Mass/Vol]7.0 g/dLNormal6.3-8.0[facility] on above:Order Comment: Specimen Type: BLOOD SPECIMENOrdering Facility: [facility] Address:[address] [place], [place] [address]Performed By: #### 26713-7 ####[facility] LABCLIA [id number] [place], [place] [address]Vhfkzh [Moles/Vol]135 mmol/LLow 136-144[facility] on above:Order Comment: Specimen Type: BLOOD SPECIMENOrdering Facility: [facility] Address:[address] [place], [place] [address]Performed By: #### 72201-8 ####[facility] LABCLIA [id number] [place], [place] [address]Kscq nitrogen [Mass/Vol]25 mg/dLHigh9-24[facility] on above: Order Comment: Specimen Type: BLOOD SPECIMENOrdering Facility: [facility] Address:[address] [place], [place] [address]Performed By: #### 58161- 8 ####[facility] LABCLIA [id number] [place], [place] [address]Jmoathp SerPl-mCncon 55-69-9245Fpphkyr [Mass/Vol]53.7 pg/mLNormal<115.0[facility] on above:Order Comment: Specimen Type: BLOOD SPECIMENOrdering Facility: [facility] Address:[address] [place], [place] [address]Result Comment: The Gastrin test was performed using the Siemens Immulite chemiluminescent immunometric method. Results obtained with different assay methods or kits cannot be used interchangeably.Performed By: #### 2333-3 ####[facility] LABCLIA [id number] [address]ETSEROTONIN BLDon 44-48-8689SEKADUYZE UJAYT2465 ng/vPPcra70-635KpazmxqpjProMedica Memorial Hospital on above:Order Comment: Specimen Type: BLOOD SPECIMENOrdering Facility: [facility] Address:[address] [place], [place] [address]Result Comment: TEST INFORMATION: Serotonin, SerumThis test was developed and its performance characteristicsdetermined by [facility]. It has not been cleared orapproved by the US Food and Drug Administration. This test wasperformed in a CLIA certified laboratory and is intended forclinical purposes.Performed By: [facility] [address] [place] [address]Wpznyfguul Director: Chapin Hollis MD, PhDCLIA Number: [id number] By: #### SERTON ####[facility]ENTERIA [id number] [place], [place] [address]YIBRWDWHBS INTESTINAL POLYPEPTIDE (VIP), PLASMAon 02-41-9383HZBAAGGLIU INTESTINAL NBXYFLPXUZJ60.7 pg/mLNormal0.0-89.1 [facility] on above:Order Comment: Specimen Type: BLOOD SPECIMENOrdering Facility: [facility] Address:[address] [place] [address] Comment: This test was developed and its performance characteristicsdetermined by [facility]. It has not been cleared orapproved by the U.S. Food and Drug Administration. This test wasperformed in a CLIA-certified laboratory and is intended forclinical purposes.Performed By: [facility] [address] [place] [address]Bnypvzfwrv Director: Chapin Hollis MD, PhDCLIA Number: [id number] By: #### VIP ####[facility] CENTERIA [id number] [place], [place] [address]RIY VASOACTIVE INTESTINAL PEPTIDEon 28-69-1276HPHGWHWCCU INTESTINAL LZWPJQBYJVT03.0 pg/mL0.0 - 89.1 pg/mLNOMS HealthcareComment on above:This test was developed and its performance characteristics determined by [facility]. It has not been cleared or approved by the U.S. Food and Drug Administration. This test was performed in a CLIA-certified laboratory and is intended for clinical purposes. Performed By: [facility] [address] [place] [address] Telemetry Nurse: Chapin Hollis MD, PhD CLIA Number: [id number] Specimen Type: BLOOD SPECIMEN [facility] Address: [address] [place] [address] Original Ordering Provider: [employer] Regeneration SystemsBeebe HealthcareF CGA SERPL-MCNCon 52-86-4774VAK CGA SERPL-GJUU966.7 ng/mLNINF - 187.0 ng/mLNOMS HealthcareComment on above:The Chromogranin A test was performed using the Savorfull CgA II KRYPTOR method. Results obtained withdifferent assay methods or kits cannot be used interchangeably.Specimen Type: BLOOD SPECIMEN [facility] Address: [address] [place] [address] Original Ordering Provider: RO[facility]LYN [facility]aaDel[facility] PET/CT WHOLE BODY SUBQOrdered By: Radiologist Radiology on 57-16-3392Jqemqxnvxkbqol and review of laboratory resultsTrinity Health Work Phone: [facility] Work Phone: nm PET/CT WHOLE BODY SUBQon 06-06-2024* * *Final Report* * * DATE OF [...] central photopenia Areas of physiologic muscle uptake. Respiratory Care Technician (topogram) images: No additional findings. IMPRESSION: Head [...] clinical team. COMMUNICATION: Results will be communicated wi (more content not included)...[facility], Radiologist, MD - 06/06/2024 * * *Final Report* * [...] central photopenia Areas of physiologic muscle uptake. Respiratory Care Technician (topogram) images: No additional findings. IMPRESSION: Head [...] discretion of the clinical team. COMMUNICATION: Results (more content not included)...NOMS HealthcareGASTRIN BLD on 76-76-7168Eskfrgx [Mass/Vol]21.7 pg/mLNINF - 115.0 pg/mLCleveland Clinic Comment on above:The Gastrin test was performed using the Siemens Immulite chemiluminescent immunometric method. Results obtained with different assay methods or kits cannot be used interchangeably.Gastrin [Mass/Vol]on 06-04-2024 Interpretation and review of laboratory resultsNormalCSt. Charles Hospital W Auto Differential panel (Bld)on 23-96-8654Xjizexsci (Bld) [#/Vol] 0.05 10*3/[facility] CampusDifferential cell count method Nom (Bld)Auto [facility] HospitalEosinophils (Bld) [#/Vol]0.43 10*3/uLTuscarawas Hospital Immature granulocytes (Bld) [#/Vol]0.03 10*3/[facility] CampusImmature granulocytes/100 WBC (Bld)0.6 %M[facility]field HospitalLymphocytes (Bld) [#/Vol]0.80 10*3/[facility] Medical CenterMonocytes (Bld) [#/Vol]0.69 10*3/[facility] CampusNeutrophils (Bld) [#/Vol]2.82 10*3/[facility] HospitalNucleated RBC (Bld) [#/Vol]NINFCOhioHealthNucleated RBC/100 WBC (Bld) [Ratio]0.0 %/100 WBC [facility]field HospitalPlatelet mean volume (Bld) [Entitic vol]10.2 fL9.0 - 12.7 fL [place] ClinicPlatelets (Bld) [#/Vol]254 10*3/[facility] HospitalWBC (Bld) [#/Vol]4.82 10*3/[facility]dena Health SystemF CBC W AUTO DIFF BLDon 60-84-8404VEK BASOPHILS # BLD AUTO0.05NILivingston Regional Hospital DIFFERENTIAL METHOD BLDAutoNOMS Memorial Health System EOSINOPHIL # BLD AUTO0.43NILivingston Regional Hospital LYMPHOCYTES # BLD AUTO0.80LowNORanken Jordan Pediatric Specialty Hospital MONOCYTES # BLD AUTO0.69NILivingston [facility] Hospital NEUTROPHILS # BLD AUTO2.82NORanken Jordan [facility] Hospital NRBC # BLD AUTO<0.01NILivingston Regional Hospital NRBC/100 WBC BLD-RTO0.0/100 WBCNORanken Jordan Pediatric Specialty Hospital PLATELET # BLD [id number] Jordan [facility] Hospital PMV BLD AUTO10.2 fL9.0 - 12.7 fLNOMS HealthcareCCF WBC # BLD AUTO4.82NOCox NorthIMM GRANULOCYTES # BLD AUTO0.03NINFNorthwest Medical Center IMM GRANULOCYTES/LEUK NFR BLD AUTO0.6 %NOM HealthcareSpecimen Type: BLOOD SPECIMEN [facility] Address: [address] [address] Original Ordering Provider: ROSELYN NARANJOLINISYNCComprehensive metabolic 2000 panelOrdered By: Xin Camejo on 82-59-2613Mhnawwb [Mass/Vol]4.5 g/dL3.9 - 4.9 g/dLClejoint township district memorial hospital ClinicALP [Catalytic activity/Vol]135 U/LHigh38 - 113 U/LCleveland ClinicALT [Catalytic activity/Vol]13 U/L10 - 54 U/LCleveland ClinicAnion gap [Moles/Vol]14 mmol/L8 - 15 mmol/LCleveland ClinicAST [Catalytic activity/Vol] [facility] HospitalComment on above:Unable to assay. Specimen significantly hemolyzed.Bilirubin [Mass/Vol]0.9 mg/dL0.2 - 1.3 mg/dLCoolville ClinicCalcium [Mass/Vol]9.0 mg/dL8.5 - 10.2 mg/dLCoolville ClinicChloride [Moles/Vol]103 mmol/L98 - 107 mmol/LCleveland ClinicCO2 [Moles/Vol]24 mmol/L22 - 30 mmol/L [facility] HospitalCreatinine [Mass/Vol]0.91 mg/dL0.73 - 1.22 mg/dLMansfield Hospital GFR/1.73 sq M.predicted among non-blacks MDRD (S/P/Bld) [Vol rate/Area]92 mL/min/{1.73_m2}- PINFCleveland ClinicComment on above:Estimated Glomerular Filtration Rate (eGFR) is calculated using the 2020 CKD-EPI creatinine equation. This equation utilizes serum creatinine, sex, and age as parameters. The creatinine assay has traceable calibration to isotope dilution-mass spectrometry. Refer to KDIGO guidelines for clinical interpretation. In patients with unstable renal function, e.g. those with acute kidney injury, the eGFRmay not accurately reflect actual GFR.Glucose [Mass/Vol]100 mg/kDHgwv38 - 99 mg/dL [facility] on above:The [place] Diabetes Association (ADA) provides guidance for cutoff values for fasting glucose andrandom glucose. The ADA defines fasting as no caloric intake for at least 8 hours. Fasting plasma gl ucose results between 100 to 125 mg/dL indicate [...] Standards of Medical Care in Diabetes 2016, [place] Diabetes [employer]. Diabetes Care. 2016.39(Suppl 1). Interpretation and review of laboratory resultsAbnormalCleveland ClinicPotassium [Moles/Vol]5.1 mmol/L3.7 - 5.1 mmol/LCleveland ClinicProtein [Mass/Vol]7.2 g/dL 6.3 - 8.0 g/dLCleveland ClinicSodium [Moles/Vol]141 mmol/L136 - 144 mmol/L [facility] HospitalUrea nitrogen [Mass/Vol]12 mg/dL9 - 24 mg/dLDayton Va Medical Centerveland ClinicGLUCOSE, BLOOD (POC)on 16-71-9474Bsmghok [Mass/Vol]99 mg/dL74 - 99 mg/dLToledo Hospital on above:Location:[facility], [address] [place] [address] , [place], [place], [facility] The Accu-Chek Inform II glucose meter has [...] blood gas instrument) in the above situations. [facility] HospitalLaboratory - Hematology and Cell countson 06-03-2024 Basophils/100 WBC (Bld)1.0 %[facility] Medical CenterEosinophils/100 WBC (Bld)8.9 %[facility] Medical CenterErythrocyte distribution width (RBC) [Ratio]13.1 %11.5 - 15.0 %[facility] Medical CenterHematocrit (Bld) [Volume fraction]37.1 %Low39.0 - 51.0 %[facility] Medical CenterHemoglobin (Bld) [Mass/Vol]12.5 g/dLLow13.0 - 17.0 g/dLNorthwest Medical Center Lymphocytes/100 WBC (Bld)16.6 %[facility]izens Memorial HealthcareH (RBC) [Entitic mass]32.2 pg 26.0 - 34.0 pgNorthwest Medical CenterMCHC (RBC) [Mass/Vol]33.7 g/dL30.5 - 36.0 g/dLNorthwest Medical CenterMCV (RBC) [Entitic vol]95.6 fL80.0 - 100.0 fLNorthwest Medical Center Monocytes/100 WBC (Bld)14.3 %[facility] Medical CenterNeutrophils/100 WBC (Bld)58.6 %[facility] Medical CenterRBC (Bld) [#/Vol]3.88 10*6/uLLow4.20 - 6.00 m/uLSainte Genevieve County Memorial Hospital PET/CT WHOLE BODY SUBQon 69-05-4177Swzlhrdva Study observation (narrative)[facility] Panel Informationon 76-84-8226Wnnyvyjmlcvrmm and review of laboratory resultsAbnormalNovant Health Clemmons Medical Center SEND OUT TST 84-68-6020UKY TEST 1Vasoactive Intestinal polypeptide (VIP)[facility] TEST RESULTS 1View results in Scanned Documents link when availableMOUNTAIN VIEW HOSPITAL HealthcareSpecimen Type: BLOOD SPECIMEN Ordering Facility: External Submitter Address: , , Original Ordering Provider: [facility] [place] CGA SERPL-MCNCon [id number] CGA SERPL-PQQB077.5 ng/mLNINF - 187.0 ng/mLNOMS HealthcareComment on above:The Chromogranin A test was performed using the Savorfull CgA II KRYPTOR method. Results obtained withdifferent assay methods or kits cannot be used interchangeably.Specimen Type: BLOOD SPECIMEN [facility] Address: [address] [place] [address] Original Ordering Provider: [facility] [place] SEROTONIN BLDon [id number] SEROTONIN AEAJY6173 ng/oCZgoi09 - 220 ng/mLNOMS Healthcare Comment on above:TEST INFORMATION: Serotonin, Serum This test was developed and its performance characteristics determined by [facility]. It has not been cleared or approved by the US Food and Drug Administration. This test was performed in a CLIA certified laboratory and is intended for clinical purposes. Performed By: [facility] [address] [place] [address] Telemetry Nurse: Chapin Hollis MD, PhD [place] Number: [id number] Interpretation and review of laboratory resultsAbSelect Specialty HospitalSpecimen Type: BLOOD SPECIMEN [facility] Address: [address] [place] [address] Original Ordering Provider: [facility] [place] GASTRIN SERPL-MCNCon [id number] GASTRIN SERPL-MCNC57.8 pg/mLNINF - 115.0 pg/mLNOMS HealthcareComment on above:The Gastrin test was performed using the Siemens Immulite chemiluminescent immunometric method. Results obtained with different assay methods or kits cannot be used interchangeably.Specimen Type: BLOOD SPECIMEN [facility] Address: [address] [place] [address] Original Ordering Provider: ROSELYN MORELANDMINDYDelaware Hospital for the Chronically Ill CBC W AUTO DIFF BLDon 25-94-1696Txgppptpr/100 WBC (Bld)0.8 %[facility] BASOPHILS # BLD AUTO0.03NILivingston [facility] Hospital DIFFERENTIAL METHOD BLDAutoNOMS Memorial Health System EOSINOPHIL # BLD AUTO0.47HighNILivingston Regional Hospital LYMPHOCYTES # BLD AUTO0.81LowSaint Luke's Health System MONOCYTES # BLD AUTO0.71NILivingston [facility] Hospital NEUTROPHILS # BLD AUTO1.83NORanken [facility] NRBC # BLD AUTO<0.01NILivingston Regional Hospital NRBC/100 WBC BLD-RTO0.0/100 WBCSaint Luke's Health System PLATELET # BLD [id number] Luke's Health System PMV BLD AUTO10.0 fL9.0 - 12.7 fLSaint Luke's Health System WBC # BLD AUTO3.86NOCox NorthEosinophils/100 WBC (Bld)12.2 %[facility] Erythrocyte distribution width (RBC) [Ratio]12.6 %11.5 - 15.0 %[facility] Hematocrit (Bld) [Volume fraction]34.9 %Low39.0 - 51.0 %[facility] Hemoglobin (Bld) [Mass/Vol]11.7 g/dLLow13.0 - 17.0 g/dLNorthwest Medical CenterIM GRANULOCYTES # BLD AUTO<0.03NINFCameron Regional Medical Center GRANULOCYTES/LEUK NFR BLD AUTO0.3 %[facility] CenterInterpretation and review of laboratory resultsAbnormal [facility] CenterLymphocytes/100 WBC (Bld)21.0 %[facility] Medical CenterMCH (RBC) [Entitic mass]31.5 pg26.0 - 34.0 pgCitizens Memorial HealthcareHC (RBC) [Mass/Vol]33.5 g/dL30.5 - 36.0 g/dLCitizens Memorial HealthcareV (RBC) [Entitic vol]94.1 fL80.0 - 100.0 fLNorthwest Medical CenterMonocytes/100 WBC (Bld)18.4 %[facility] Medical CenterNeutrophils/100 WBC (Bld) 47.3 %[facility] Medical CenterRBC (Bld) [#/Vol]3.71 10*6/uLLow4.20 - 6.00 m/uLNorthwest Medical CenterSpecimen Type: BLOOD SPECIMEN [facility] Address: [address] [place] [address] Original Ordering Provider: ROSELYN MORLEYSaint Joseph [facility] Abdomen and Pelvis W contrast Amalia 14-60-4185JBAZTMRTBD: 1. There is an overall stable appearance [...] any questions regarding this interpretation, please call [phone]. If you are unable to reach us at the number above, please feel free to contact [facility] at [phone].DIVISION OF RADIOLOGY* * *Final Report* * * DATE OF EXAM: May 13 2024 8:27AM [facility] 0553 - CT PANCREAS/PELVIS [...] performed concurrently and will be dictated separately. Respiratory Care Technician (topogram) images: No additional findings. DIVISION OF RADIOLOGYProvider, [facility] [place] - 05/13/2024 * * *Final Report* * * DATE OF EXAM: May 13 2024 8:27AM [facility] 0553 - CT PANCREAS/PELVIS [...] performed concurrently and will be dictated separately. Respiratory Care Technician (topogram) images: No additional findings. IMPRESSION IMPRESSION: [...] Trace perihepatic and nick (more content not included)...[facility] HospitalCT Chest W contrast Amalia 27-64-6130MJUXRPZRAP: 1. 1.7 cm irregularly marginated nodular mass [...] any questions regarding this interpretation, please call [phone]. If you are unable to reach us at the number above, please feel free to contact [facility] eRadiology at [phone].DIVISION OF RADIOLOGY* * *Final Report* * * DATE OF EXAM: May 13 2024 8:27AM [facility] 0539 - CT CHEST W [...] performed concurrently and will be dictated separately. Respiratory Care Technician (topogram) images: No additional findings. DIVISION OF RADIOLOGYProvider, [facility] [place] - 05/13/2024 * * *Final Report* * * DATE OF EXAM: May 13 2024 8:27AM [facility] 0539 - CT CHEST W [...] performed concurrently and will be dictated separately. Respiratory Care Technician (topogram) images: No additional findings. IMPRESSION IMPRESSION: [...] any questions regarding this interpretation, please call [phone]. If you are unable to reach us at the number above, please feel free to contact [facility] eRadiology at [phone]. [facility]* * *Final Report* * * DATE OF EXAM: May 13 2024 8:27AM [facility] 0539 - CT CHEST W [...] performed concurrently and will be dictated separately. Respiratory Care Technician (topogram) images: No additional findings. IMPRESSION: 1. [...] any questions regarding this interpretation, please call [phone]. If you are unable to reach us at the number above, please feel free to contact [facility] at [phone]. [id number]^AGFA_IDC^SI^ACNCCFRadiology, Radiologist, - 05/13/2024 * * *Final Report* * * DATE OF EXAM: May 13 2024 8:27AM [facility] 0539 - CT CHEST W [...] performed concurrently and will be dictated separately. Respiratory Care Technician (topogram) images: No additional findings. IMPRESSION: 1. [...] any questions regarding this interpretation, please call [phone]. If you are unable to reach us at the number above, please feel free to contact [facility] at [phone]. [id number]^AGFA_IDC^SI^ACN NOMS HealthcareCT PANCREAS/PELVIS W IVCONon 05-13-2024* * *Final Report* * * DATE OF EXAM: May 13 2024 8:27AM [facility] 0553 - CT PANCREAS/PELVIS [...] performed concurrently and will be dictated separately. Respiratory Care Technician (topogram) images: No additional findings. IMPRESSION: 1. [...] perisplenic ascites, the possibility of a peritoneal (more content not included)...CCFRadiology, Radiologist, - 05/13/2024 * * *Final Report* * * DATE OF EXAM: May 13 2024 8:27AM [facility] 0553 - CT PANCREAS/PELVIS [...] performed concurrently and will be dictated separately. Respiratory Care Technician (topogram) images: No additional findings. IMPRESSION: 1. [...] appearance. 4. Trace perihepatic and perisplenic ascites, t (more content not included)... [facility] CenterNo Panel InformationOrdered By: Cc Provider on 05-13-2024 [facility] Panel Informationon 00-04-9470Fmnkgwahm Study observation (narrative)[facility]woodsi[facility] Study observation (narrative)[facility] CBC W AUTO DIFF BLDon 98-29-8270Ulxzrlxcp/100 WBC (Bld)1.0 %[facility] BASOPHILS # BLD AUTO0.04NILivingston [facility] DIFFERENTIAL METHOD BLDAutoNOMSullivan County Memorial Hospital EOSINOPHIL # BLD AUTO0.54HighNILivingston Regional Hospital LYMPHOCYTES # BLD AUTO0.71LowSaint Luke's Health System MONOCYTES # BLD AUTO0.68NILivingston [facility] Hospital NEUTROPHILS # BLD AUTO2.20NOSSM Health CareF NRBC # BLD AUTO<0.01 NINFSaint Luke's Health System NRBC/100 WBC BLD-RTO0.0/100 WBCSaint Luke's Health System PLATELET # BLD [id number] [facility] PMV BLD AUTO10.2 fL9.0 - 12.7 fLSaint Luke's Health System WBC # BLD AUTO4.18NOCox NorthEosinophils/100 WBC (Bld)12.9 % [facility] Medical CenterErythrocyte distribution width (RBC) [Ratio]12.5 %11.5 - 15.0 % [facility] Medical CenterHematocrit (Bld) [Volume fraction]35.6 %Low39.0 - 51.0 %[facility] Medical CenterHemoglobin (Bld) [Mass/Vol]12.0 g/dLLow13.0 - 17.0 g/dLWashington County Memorial Hospital GRANULOCYTES # BLD AUTO<0.03NIRegional [facility] GRANULOCYTES/LEUK NFR BLD AUTO0.2 %[facility] CenterInterpretation and review of laboratory resultsAbnormal [facility] CenterLymphocytes/100 WBC (Bld)17.0 %[facility] HealthcareH (RBC) [Entitic mass]31.3 pg26.0 - 34.0 pgCitizens Memorial HealthcareHC (RBC) [Mass/Vol]33.7 g/dL30.5 - 36.0 g/dLCitizens Memorial HealthcareV (RBC) [Entitic vol]93.0 fL80.0 - 100.0 fLNorthwest Medical CenterMonocytes/100 WBC (Bld)16.3 %[facility] CenterNeutrophils/100 WBC (Bld) 52.6 %[facility] Medical CenterRBC (Bld) [#/Vol]3.83 10*6/uLLow4.20 - 6.00 m/[facility] HospitalSpecimen Type: BLOOD SPECIMEN Ordering Facility: [facility] Address: [place] [place] [id number] Original Ordering Provider: [facility] Abdomen and Pelvis W contrast Amalia [id number]: 1. Redemonstrated findings of the known extensive [...] any questions regarding this interpretation, please call [phone]. If you are unable to reach us at the number above, please feel free to contact [facility] eRadiology at [phone].DIVISION OF RADIOLOGYProvider, [facility] [place] - 02/18/2024 * * *Final Report* * * DATE OF EXAM: Feb 18 2024 8:19AM [facility] 0553 - CT PANCREAS/PELVIS [...] - Hepatic veins: P (more content not included)...[facility] ClinicRad[facility] Study observation (narrative)[facility] PANCREAS/PELVIS W IVCONon 02-18-2024 Radiology, Radiologist, - 02/18/2024 * * *Final Report* * * DATE OF EXAM: Feb 18 2024 8:19AM [facility] 0553 - CT PANCREAS/PELVIS [...] venous collaterals are seen. - Hepatic veins: Patent (more content not included)...[facility] HealthcareRadiology Study observation (narrative)[facility] CenterNo Panel Informationon 02-18-2024* * *Final Report* * * DATE OF EXAM: Feb 18 2024 8:19AM [facility] 0553 - CT PANCREAS/PELVIS [...] ascites or fluid collection. (more content not included)...DIVISION OF RADIOLOGYNo Panel InformationOrdered By: Ccf Provider on 95-46-2544Hxlxfnvxu ClinicFERRITINon 04-16-6714Eixknkdv [Mass/Vol]260.0 ng/mL30.3 - 565.7 ng/mLCleveland ClinicFOLATE, SERUMon 86-63-2668Qhtnuv [Mass/Vol]8.4 ng/mL>4.7 ng/mLCleveland Regions HospitalIron and Iron binding capacity panelon 96-58-9876Otcx [Mass/Vol]67 ug/dL41 - 186 ug/dL [facility] HospitalIron binding capacity [Mass/Vol]383 ug/dL232 - 386 ug/dL [facility] HospitalIron/TIBC [Molar ratio]17.5 %15.0 - 57.0 %[facility] VITAMIN B12on 62-54-5273Dsxvsdnfw (Vitamin B12) [Mass/Vol]698 pg/mL232 - 1,245 pg/mLCleveland Regions HospitalCBC W Auto Differential panel (Bld)on 06-97-6915Uhgvfitvx (Bld) [#/Vol]0.03 10*3/uL<0.11 k/uLMansfield HospitalBasophils/100 WBC (Bld)0.6 % [facility] HospitalDifferential cell count method Nom (Bld)AutoCleveland Regions Hospital Eosinophils (Bld) [#/Vol]0.13 10*3/uL<0.46 k/uLMansfield HospitalEosinophils/100 WBC (Bld)2.5 %[facility] HospitalErythrocyte distribution width (RBC) [Ratio]14.8 % 11.5 - 15.0 %[facility] HospitalHematocrit (Bld) [Volume fraction]36.0 %Low39.0 - 51.0 %[facility] HospitalHemoglobin (Bld) [Mass/Vol]11.7 g/dLLow13.0 - 17.0 g/dL [facility] HospitalImmature granulocytes (Bld) [#/Vol]<0.10 k/uLMansfield Hospital Immature granulocytes/100 WBC (Bld)0.4 %[facility]field HospitalLymphocytes (Bld) [#/Vol]0.96 10*3/uLLow1.00 - 4.00 k/uLMansfield HospitalLymphocytes/100 WBC (Bld) 18.4 %CentervilleH (RBC) [Entitic mass]28.8 pg26.0 - 34.0 pgClevelEssentia HealthHC (RBC) [Mass/Vol]32.5 g/dL30.5 - 36.0 g/dLCentervilleV (RBC) [Entitic vol]88.7 fL80.0 - 100.0 fLCleveland ClinicMonocytes (Bld) [#/Vol]0.68 10*3/uL<0.87 k/[facility] HospitalMonocytes/100 WBC (Bld)13.0 %[facility] Neutrophils (Bld) [#/Vol]3.40 10*3/uL1.45 - 7.50 k/[facility] Neutrophils/100 WBC (Bld)65.1 %[facility] HospitalNucleated RBC (Bld) [#/Vol]<0.01 k/uLMansfield HospitalNucleated RBC/100 WBC (Bld) [Ratio]0.0 /100 WBCMansfield HospitalPlatelet mean volume (Bld) [Entitic vol]10.5 fL9.0 - 12.7 fLCsalem city hospital ClinicPlatelets (Bld) [#/Vol]198 10*3/uL150 - 400 k/[facility] HospitalRBC (Bld) [#/Vol]4.06 10*6/uLLow4.20 - 6.00 m/[facility] HospitalWBC (Bld) [#/Vol]5.22 10*3/uL3.70 - 11.00 k/[facility] HospitalComprehensive metabolic 2000 panelon 74-51-9752Vilmdem [Mass/Vol]4.1 g/dL3.9 - 4.9 g/dLCoolville ClinicALP [Catalytic activity/Vol]135 U/LHigh38 - 113 U/LCleveland ClinicALT [Catalytic activity/Vol]11 U/L10 - 54 U/LCleveland ClinicAnion gap [Moles/Vol]10 mmol/L9 - 18 mmol/LCleveland ClinicAST [Catalytic activity/Vol]17 U/L14 - 40 U/LCleveland Regions HospitalBilirubin [Mass/Vol]0.5 mg/dL0.2 - 1.3 mg/dLMansfield HospitalCalcium [Mass/Vol]9.5 mg/dL8.5 - 10.2 mg/dLMansfield HospitalChloride [Moles/Vol]102 mmol/L97 - 105 mmol/LCleveland ClinicCO2 [Moles/Vol]25 mmol/L22 - 30 mmol/L [facility] HospitalCreatinine [Mass/Vol]0.98 mg/dL0.73 - 1.22 mg/dLMansfield Hospital Estimated Glomerular Filtration Rate84 mL/min/1.73m>=60 mL/min/1.73mCleveland Regions HospitalGlucose [Mass/Vol]120 mg/eCKytl61 - 99 mg/dLMansfield HospitalPotassium [Moles/Vol]4.4 mmol/L3.7 - 5.1 mmol/LCleveland ClinicProtein [Mass/Vol]7.2 g/dL 6.3 - 8.0 g/dLCoolville ClinicSodium [Moles/Vol]137 mmol/L136 - 144 mmol/L [facility] HospitalUrea nitrogen [Mass/Vol]14 mg/dL9 - 24 mg/dLMansfield HospitalECG 12 leadon 42-64-1949Vnsukiunjgk Rate : 107 BPM Atrial Rate : 107 BPM P-R Interval : 148 ms QRS Duration : 98 ms Q-T Interval : 331 ms QTC Calculation(Bazett) : 442 ms Calculated P Breckenridge : 63 degrees Calculated R Breckenridge : 42 degrees Calculated T Breckenridge : 18 degrees Sinus tachycardia Otherwise Normal ECG poor R wave progression Confirmed by MD SAMANTHA, [facility] ([id number]) on 11/05/2023 9:04:36 PM NAME : AISHA JULIEN PID : [id number] : 1955 Gender : Male Race : ORD : [id number] Procedure Date : Nov 03 2023 13:52:22 [...] By : , Acquired by : ANURAG WARDCCFRadiology, Radiologist, - 11/05/2023 Ventricular Rate : 107 BPM Atrial Rate : 107 BPM P-R Interval : 148 ms QRS Duration : 98 ms Q-T Interval : 331 ms QTC Calculation(Bazett) : 442 ms Calculated P Breckenridge : 63 degrees Calculated R Breckenridge : 42 degrees Calculated T Breckenridge : 18 degrees Sinus tachycardia Otherwise Normal ECG poor R wave progression Confirmed by MD SINGH IBRAHIM ([id number]) on 11/05/2023 9:04:36 PM NAME : AISHA JULIEN PID : [id number] : 1955 Gender : Male Race : ORD : [id number] Procedure Date : Nov 03 2023 13:52:22 [...] : , Acquired by : ANURAG WARD NOM HealthcareECG 12 leadOrdered By: Radiologist Radiology on 06-28-8176VANN [employer] Work Phone: ECG 12 leadon 23-70-0576Pkogiunutpv Rate : 115 BPM Atrial Rate : 115 BPM P-R Interval : 154 ms QRS Duration : 90 ms Q-T Interval : 315 ms QTC Calculation(Bazett) : 436 ms Calculated P Breckenridge : 45 degrees Calculated R Breckenridge : 48 degrees Calculated T Breckenridge : 4 degrees Sinus tachycardia Low voltage, extremity leads Otherwise Normal ECG Confirmed by BOLIVAR DEAL M.D.[id number]) on 11/03/2023 6:29:34 PM NAME : AISHA JULIEN PID : [id number] : 1955 Gender : Male Race : ORD : [id number] Procedure Date : Nov 02 2023 14:07:51 [...] By : , Acquired by : LESLEE SILVACCFRadiology, Radiologist, MD - 11/03/2023 Ventricular Rate : 115 BPM Atrial Rate : 115 BPM P-R Interval : 154 ms QRS Duration : 90 ms Q-T Interval : 315 ms QTC Calculation(Bazett) : 436 ms Calculated P Breckenridge : 45 degrees Calculated R Breckenridge : 48 degrees Calculated T Breckenridge : 4 degrees Sinus tachycardia Low voltage, extremity leads Otherwise Normal ECG Confirmed by BOLIVAR DEAL M.D. ([id number]) on 11/03/2023 6:29:34 PM NAME : AISHA JULIEN PID : [id number] : 1955 Gender : Male Race : ORD : [id number] Procedure Date : Nov 02 2023 14:07:51 [...] : , Acquired by : LESLEE SILVA NOMTom HealthcareVentricular Rate : 114 BPM Atrial Rate : 114 BPM P-R Interval : 143 ms QRS Duration : 88 ms Q-T Interval : 304 ms QTC Calculation(Bazett) : 419 ms Calculated P Breckenridge : 35 degrees Calculated R Breckenridge : -7 degrees Calculated T Breckenridge : 33 degrees Sinus tachycardia Low voltage, extremity leads Consider anterior infarct Borderline ECG Confirmed by BOLIVAR DEAL M.D. ([id number]) on 11/03/2023 6:29:08 PM NAME : AISHA JULIEN PID : [id number] : 1955 Gender : Male Race : ORD : [id number] Procedure Date : Nov 01 2023 15:56:12 [...] By : , Acquired by : JC HERNANDEZCCFRadiology, Radiologist, MD - 11/03/2023 Ventricular Rate : 114 BPM Atrial Rate : 114 BPM P-R Interval : 143 ms QRS Duration : 88 ms Q-T Interval : 304 ms QTC Calculation(Bazett) : 419 ms Calculated P Breckenridge : 35 degrees Calculated R Breckenridge : -7 degrees Calculated T Breckenridge : 33 degrees Sinus tachycardia Low voltage, extremity leads Consider anterior infarct Borderline ECG Confirmed by BOLIVAR DEAL M.D. ([id number]) on 11/03/2023 6:29:08 PM NAME : AISHA JULIEN PID : [id number] : 1955 Gender : Male Race : ORD : [id number] Procedure Date : Nov 01 2023 15:56:12 [...] : , Acquired by : JC HERNANDEZ [facility] 12 leadOrdered By: Radiologist Radiology on 15-31-2788NQRY Healthcare Work Phone: [facility] Healthcare Work Phone: anisocytosis LM Ql (Bld)Ordered By: Kalina Valdez on 54-55-8028Vuabanxiefek Ql (Bld)ModerateAdena Regional Medical Center Basophils Auto (Bld) [#/Vol]Ordered By: Kalina Moore on 10-10-2023 Basophils (Bld) [#/Vol]N/[facility] HospitalBasophils/100 WBC Auto (Bld)Ordered By: Kalina Moore on 25-88-5287Ontmnrrad/100 WBC (Bld) N/[facility] HospitalBasophils/100 WBC Manual cnt (Bld)Ordered By: Kalina Moore on 55-89-2455Ldjhkymfq/100 WBC (Bld)0 %0-2FRegency Hospital Cleveland WestCalcium [Mass/volume] in Serum or PlasmaOrdered By: Kalina Moore on 17-14-3730Tzxydlk [Mass/Vol]7.7 mg/dL8.6-10.3FRegency Hospital Cleveland WestCarbon dioxide, total [Moles/volume] in Serum or Plasma Ordered By: Kalina Moore on 96-80-8082JV7 [Moles/Vol]25.2 mmol/L 21.0-31.0[facility] Medical CenterChloride [Moles/volume] in Serum or PlasmaOrdered By: Kalina Moore on 71-91-4797Zhqpbskp [Moles/Vol]110 mmol/M34-753GllrejrvqAdena Regional Medical CenterCreatinine [Mass/volume] in Serum or PlasmaOrdered By: Kalina Moore on 66-83-5380Ijxvtjrcqy [Mass/Vol]0.69 mg/dL0.70-1.30[facility] CenterEosinophils Auto (Bld) [#/Vol] Ordered By: Kalina Moore on 99-67-0769Zwthybscerx (Bld) [#/Vol]N/A [facility] CenterEosinophils/100 WBC Auto (Bld)Ordered By: Kalina Moore on 83-28-7354Sniwnxoeeji/100 WBC (Bld)N/AFRegency Hospital Cleveland WestEosinophils/100 WBC Manual cnt (Bld)Ordered By: Kalina Valdez on 02-05-1020Tutsiconrfm/100 WBC (Bld)5 %1-3FRegency Hospital Cleveland WestErythrocyte distribution width Auto (RBC) [Ratio]Ordered By: Kalina Moore on 30-28-6613Qjipbmespby distribution width (RBC) [Ratio]15.5 % 12.0-14.8[facility] CenterGlucose Glucometer (BldC) [Mass/Vol] Ordered By: Johnny Mendoza on 61-88-5335Ivucbog [Mass/Vol]96 mg/dL [facility] CenterComment on above:Random Glucose Reference Range is dependent on time and content of last meal. Glucose of more than 200 mg/dL in a nonstressed, ambulatory subject supports the diagnosis of Diabetes Mellitus.Glucose [Mass/volume] in Serum or PlasmaOrdered By: Kalina Valdez on 25-83-4543Hugbavx [Mass/Vol]89 mg/wY33-585BcixjuzixAdena Regional Medical CenterComment on above:ADA recommended reference rangeRandom Glucose Reference Range is dependent on time and content of last meal. Glucose of more than 200 mg/dL in a nonstressed, ambulatory subject supports the diagnosisof Diabetes Mellitus.Hematocrit Auto (Bld) [Volume fraction]Ordered By: Kalina Moore on 84-30-1461Xowgobtwlp (Bld) [Volume fraction]28.9 %38.8-50.0[facility] CenterHemoglobin [Mass/volume] in BloodOrdered By: Kalina Moore on 26-37-3717Ylomblersb (Bld) [Mass/Vol]9.4 g/dL13.0-17.0[facility] CenterLeukocytes [#/volume] corrected for nucleated erythrocytes in Blood by Automated counOrdered By: Kalina Moore on 40-00-4815MCL corrected for nucl RBC Auto (Bld) [#/Vol]6.3 10*3/uL4.1-10.5FRegency Hospital Cleveland WestLymphocytes Auto (Bld) [#/Vol]Ordered By: Kalina Moore on 57-69-4178Ufnpwiqwkgy (Bld) [#/Vol]N/[facility] Lymphocytes/100 WBC Auto (Bld)Ordered By: Kalina Moore on 10-10-2023 Lymphocytes/100 WBC (Bld)N/[facility] HospitalLymphocytes/100 WBC Manual cnt (Bld)Ordered By: Kalina Moore on 73-44-0756Qyuziighxwu/100 WBC (Bld)5 %18-42[facility] Medical CenterMCH Auto (RBC) [Entitic mass] Ordered By: Kalina Moore on 10-84-6741RDM (RBC) [Entitic mass]29.8 pg 27.5-35.2FRegency Hospital Cleveland WestMCHC Auto (RBC) [Mass/Vol]Ordered By: Kalina Moore on 90-66-2206QVUM (RBC) [Mass/Vol]32.6 g/dL32.5-35.6 [facility] CenterMCV Auto (RBC) [Entitic vol]Ordered By: Kalina Moore on 45-95-9591VWR (RBC) [Entitic vol]91.5 fL83.5-101[facility] CenterMagnesium [Mass/volume] in Serum or PlasmaOrdered By: Kalina Moore on 73-79-3606Henzynopl [Mass/Vol]2.1 mg/dL1.9-2.7FRegency Hospital Cleveland WestMetamyelocytes/100 WBC Manual cnt (Bld)Ordered By: Kalina Moore on 83-99-4582Aqebnwpagrzwfy/100 WBC (Bld)1 %0-0[facility] CenterMonocytes Auto (Bld) [#/Vol]Ordered By: Kalina Valdez on 80-88-9724Fjpfbbmio (Bld) [#/Vol]N/[facility] Monocytes/100 WBC Auto (Bld)Ordered By: Kalina Moore on 10-10-2023 Monocytes/100 WBC (Bld)N/[facility] HospitalMonocytes/100 WBC Manual cnt (Bld)Ordered By: Kalina Moore on 06-72-6553Gtquxzqic/100 WBC (Bld)9 %2-11[facility] CenterMyelocytes/100 WBC Manual cnt (Bld) Ordered By: Kalina Moore on 06-53-0323Oqczompswv/100 WBC (Bld)2 %0-0 [facility] CenterNeutrophils Auto (Bld) [#/Vol]Ordered By: Kalina Moore on 52-24-5626Xbwhkkthsvv (Bld) [#/Vol]NOhioHealth Riverside Methodist HospitalNeutrophils/100 WBC Auto (Bld)Ordered By: Kalina Moore on 05-86-6622Vwxsuvqgxxv/100 WBC (Bld)N/[facility] HospitalNo Panel InformationOrdered By: Kalina Moore on 26-43-9574Dmrutjfey GFR (CKD-EPI) > 60.0 mL/MinAdena Regional Medical CenterPharmacy Creatinine Clearance (Chem88.38[facility] CenterNucleated erythrocytes [Presence] in Blood by Automated countOrdered By: Kalina Moore on 35-43-0997Vrlldwtfc RBC Auto Ql (Bld)[facility] HospitalOvalocyte detectionOrdered By: Kalina Moore on 57-07-4642Ldxjxprgqw LM Ql (Bld)SlightAdena Regional Medical CenterPhosphate [Mass/volume] in Serum or PlasmaOrdered By: Kalina Moore on 35-54-1985Xykpasbst [Mass/Vol]2.7 mg/dL2.5-4.5FRegency Hospital Cleveland WestPlatelet adequacy [Presence] in Blood by Light microscopy Ordered By: Kalina Moore on 49-01-0781Fohqpftbq LM Ql (Bld)Decreased NormalAdena Regional Medical CenterPlatelet mean volume Auto (Bld) [Entitic vol]Ordered By: Kalina Moore on 23-97-4191Bilyozgj mean volume (Bld) [Entitic vol]11.1 fL6.6-10.1FRegency Hospital Cleveland WestPlatelet morphology finding [Identifier] in BloodOrdered By: Kalina Moore on 10-10-2023 Platelet morphology finding Nom (Bld)NormalNormalAdena Regional Medical CenterPlatelets Auto (Bld) [#/Vol]Ordered By: Kalina Moore on 10-10-2023 Platelets (Bld) [#/Vol]104 10*3/dF470-554QikekzyreAdena Regional Medical Center Potassium [Moles/volume] in Serum or PlasmaOrdered By: Kalina Moore on 56-23-1783Wbpxxqrgz [Moles/Vol]3.7 mmol/L3.5-5.1FRegency Hospital Cleveland WestRBC Auto (Bld) [#/Vol]Ordered By: Kalina Moore on 74-25-4188SXG (Bld) [#/Vol]3.16 10*6/uL3.90-5.60[facility] CenterRB morphologyOrdered By: Kalina Moore on 04-82-8405YWS morphology finding Nom (Bld)N/AFSumma Health Wadsworth - Rittman Medical Centeregmented neutrophils/100 WBC Manual cnt (Bld)Ordered By: Kalina Moore on 65-12-8814Aijjegfpw neutrophils/100 WBC (Bld)78 %50-70[facility] Prebleerum or plasma anion gap determinationOrdered By: Kalina Moore on 10-10-2023 Anion gap [Moles/Vol]8.5 mmol/L6.0-15.0[facility] Prebleodium [Moles/volume] in Serum or PlasmaOrdered By: Kalina Moore on 10-10-2023 Sodium [Moles/Vol]140 mmol/W576-150MdlntuqsgAdena Regional Medical CenterUrea nitrogen [Mass/volume] in Serum or PlasmaOrdered By: Kalina Moore on 85-48-3428Trbr nitrogen [Mass/Vol]12 mg/dL7-25[facility] WBC Auto (Bld) [#/Vol]Ordered By: Kalina Moore on 92-26-7346USP (Bld) [#/Vol]6.3 10*3/uL4.1-10.5FRegency Hospital Cleveland WestNo Panel Information Ordered By: Cali Pattesron on 84-19-8082Ztfoeou Glucose CommentGlu2: cleaned meter [facility] CenterPrealbumin [Mass/volume] in Serum or Plasma Ordered By: Kalina Moore on 77-02-0090Gclwmdouaq [Mass/Vol]7.0 mg/dL 17.0-34.0[facility] CenterTriglyceride [Mass/volume] in Serum or PlasmaOrdered By: Kalina Moore on 68-40-6385Azzmrawegnxd [Mass/Vol]100 mg/pR89-959GtavjxylyAdena Regional Medical CenterComment on above:TRIG ATP III CLASSIFICATIONTRIG less than 150 mg/dL NormalTRIG 150-199 mg/dL Borderline highTRIG 200-500 mg/dL High TRIG greater than 500 mg/dL Very highStandard traceable to the Center for Disease Conrtrol and Prevention (CDC) test method. Fecal occult blood detection by immunochemistryOrdered By: Kalina Moore on 34-62-9721Kkbhaxhdeg.gastrointestinal Ql (Stl)[facility] CenterActivated partial thromboplastin time (aPTT) in platelet poor plasma by coagulation aOrdered By: Joseluis Mejia on 15-60-4493uOOT Coag (PPP) [Time]31.8 s 25.1-36.5FRegency Hospital Cleveland WestComment on above:A hematocrit value greater than 55% may lead to inaccurate results in coagulation testing. Patients having hematocrit values >55% require a special collection tube for coagulation studies. Please contact the laboratory at [phone] for redraw instructions. Alanine aminotransferase [Enzymatic activity/volume] in Serum or PlasmaOrdered By: Joseluis Mejia on 02-85-9108GWG [Catalytic activity/Vol]16 U/L7-52[facility] CenterAlbumin [Mass/volume] in Serum or Plasma by Bromocresol green (BCG) dye binding methoOrdered By: Joseluis Mejia on 79-77-2271Znuwstm BCG dye [Mass/Vol]3.1 g/dL3.5-5.7FRegency Hospital Cleveland WestAlkaline phosphatase [Enzymatic activity/volume] in Serum or PlasmaOrdered By: Joseluis Mejia on 06-18-7272NOR [Catalytic activity/Vol]139 U/L84-480MclsxmowdAdena Regional Medical CenterAspartate aminotransferase [Enzymatic activity/volume] in Serum or PlasmaOrdered By: Joseluis Mejia on 89-06-6255YVA [Catalytic activity/Vol]23 U/L 13-39[facility] Medical CenterBacteria identified Aer cx Nom (Unsp spec) Ordered By: Cali Patterson on 91-10-0678Scofobriofc Wound CultureKlebsiella pneumoniaeAdena Regional Medical CenterBand form neutrophils/100 WBC Manual cnt (Bld)Ordered By: Joseluis Mejia on 87-16-7878Isyj form neutrophils/100 WBC (Bld)14 %0-5FRegency Hospital Cleveland WestBasophils Auto (Bld) [#/Vol]Ordered By: Joseluis Mejia on 76-32-1612Htfgbzrss (Bld) [#/Vol]N/[facility] HospitalBasophils/100 WBC Auto (Bld)Ordered By: Joseluis Mejia on 10-06-2023 Basophils/100 WBC (Bld)N/[facility] HospitalBilirubin Test strip Ql (U)Ordered By: Joseluis Mejia on 28-24-2698Aeabokyxs Ql (U)1+NegativeAdena Regional Medical CenterBilirubin.total [Mass/volume] in Serum or PlasmaOrdered By: Joseluis Mejia on 13-68-1303Dglgahmak [Mass/Vol]0.9 mg/dL0.3-1.0[facility] Medical CenterCOVID CepheidOrdered By: Kip Gutiérrez on 10-06-2023 SARS-CoV-2 (COVID-19) Ab IA QlNegativeNegativeAdena Regional Medical Center Comment on above:This is a duplicate Cepheid Xpert Xpress CoV-2/Flu/RSV Plus RNA by RT-PCR result to be used for statistical tracking purpose only.SARS-CoV-2 (COVID-19) RNA VERITO+probe Ql (Unsp spec)[facility] CenterCalcium [Mass/volume] in Serum or PlasmaOrdered By: Joseluis Mejia on 84-71-9615Uhuwhbm [Mass/Vol]7.8 mg/dL8.6-10.3FRegency Hospital Cleveland WestCarbon dioxide, total [Moles/volume] in Serum or PlasmaOrdered By: Joseluis Mejia on 75-52-7266RU9 [Moles/Vol]27.0 mmol/L21.0-31.0[facility] CenterChloride [Moles/volume] in Serum or PlasmaOrdered By: Joseluis Mejia on 81-06-9405Qlaxpgqi [Moles/Vol]97 mmol/N37-751OqufwmtuxAdena Regional Medical CenterColor Auto (U)Ordered By: Joseluis Mejia on 35-01-5659Giuhg (U)Dark yellowYellowAdena Regional Medical CenterCreatinine [Mass/volume] in Serum or PlasmaOrdered By: Joseluis Mejia 08-85-5285Frswhfsqgq [Mass/Vol]1.38 mg/dL0.70-1.30[facility] CenterEosinophils Auto (Bld) [#/Vol]Ordered By: Joseluis Mejia on 45-10-3890Hompzmsvote (Bld) [#/Vol]N/[facility] Eosinophils/100 WBC Auto (Bld)Ordered By: Joseluis Mejia on 10-06-2023 Eosinophils/100 WBC (Bld)N/[facility] HospitalErythrocyte distribution width Auto (RBC) [Ratio]Ordered By: Joseluis Mejia on 10-06-2023 Erythrocyte distribution width (RBC) [Ratio]13.9 %12.0-14.8[facility] CenterGlobulin Calc (S) [Mass/Vol]Ordered By: Joseluis Mejia on 10-06-2023 Globulin (S) [Mass/Vol]2.9 g/dLAdena Regional Medical CenterGlucose [Mass/volume] in Serum or PlasmaOrdered By: Joseluis Mejia on 18-21-1272Jxzyjxm [Mass/Vol]116 mg/zY53-887DlemwpnekAdena Regional Medical CenterComment on above:ADA recommended reference rangeRandom Glucose Reference Range is dependent on time and content of last meal. Glucose of more than 200 mg/dL in a nonstressed, ambulatory subject supports the diagnosisof Diabetes Mellitus.Hematocrit Auto (Bld) [Volume fraction]Ordered By: Joseluis Mejia on 93-67-6497Obkosxxyqz (Bld) [Volume fraction]30.4 %38.8-50.0[facility] CenterHemoglobin [Mass/volume] in BloodOrdered By: Joseluis Mejia on 43-81-9665Ujcadcllqz (Bld) [Mass/Vol]10.2 g/dL13.0-17.0[facility] CenterINR in Platelet poor plasma by Coagulation assayOrdered By: Joseluis Mejia on 45-98-3200HWB Coag (PPP) [Relative time]1.2 {INR}[facility] CenterComment on above: INR Therapeutic Range A) Pre- and Peroperative [...] By: Joseluis Mejia on 10-06-2023 Ketones (U) [Mass/Vol]NegativeNegativeAdena Regional Medical CenterLactate [Moles/volume] in Serum or PlasmaOrdered By: Kip Gutiérrez on 32-45-9264Sfdevpk [Moles/Vol]1.5 mmol/L0.5-2.2FRegency Hospital Cleveland WestLeukocytes [#/volume] corrected for nucleated erythrocytes in Blood by Automated coun Ordered By: Joseluis Mejia on 76-95-9544IBL corrected for nucl RBC Auto (Bld) [#/Vol]24.5 10*3/uL4.1-10.5FRegency Hospital Cleveland WestLymphocytes Auto (Bld) [#/Vol]Ordered By: Joseluis Mejia on 50-08-8092Vzaepignyvb (Bld) [#/Vol]N/A [facility] CenterLymphocytes/100 WBC Auto (Bld)Ordered By: Joseluis Mejia on 95-75-9927Mmarytbutzq/100 WBC (Bld)N/AFRegency Hospital Cleveland WestLymphocytes/100 WBC Manual cnt (Bld)Ordered By: Joseluis Mejia on 38-58-3932Jyqddognyea/100 WBC (Bld)1 %18-42[facility] Medical CenterMCH Auto (RBC) [Entitic mass]Ordered By: Joseluis Mejia on 98-73-1410SSF (RBC) [Entitic mass]29.0 pg27.5-35.2FRegency Hospital Cleveland WestMCHC Auto (RBC) [Mass/Vol]Ordered By: Joseluis Mejia on 16-54-9520VDIK (RBC) [Mass/Vol]33.6 g/dL 32.5-35.6FRegency Hospital Cleveland WestMCV Auto (RBC) [Entitic vol]Ordered By: Joseluis Mejia on [id number] (RBC) [Entitic vol]86.3 fL83.5-101[facility] Medical CenterMagnesium [Mass/volume] in Serum or PlasmaOrdered By: Joseluis Mejia on [id number] [Mass/Vol]2.0 mg/dL1.9-2.7FRegency Hospital Cleveland WestMicrocytes LM Ql (Bld)Ordered By: Joseluis Mejia on 10-06-2023 Microcytes Ql (Bld)ModerateAdena Regional Medical CenterMonocyte distribution width [Entitic volume] in Blood by AutomatedOrdered By: Joseluis Mejia on [id number] distribution width Auto (Bld) [Entitic vol]37.74 % 0.00-20.00[facility] Medical CenterComment on above:For adults in ED, MDW > 20.0 may be associated with a higher risk of sepsis during the first 12 h rs of hospital admissionThe predictive value of MDW for identifying sepsis in patients with hematological abnormalities has not been establishedMonocytes Auto (Bld) [#/Vol]Ordered By: Joseluis Mejia on 47-19-4810Iktilizpr (Bld) [#/Vol]N/A [facility] CenterMonocytes/100 WBC Auto (Bld)Ordered By: Joseluis Mejia on 04-97-5594Zocxhdzzm/100 WBC (Bld)N/AFRegency Hospital Cleveland West Monocytes/100 WBC Manual cnt (Bld)Ordered By: Joseluis Mejia on 10-06-2023 Monocytes/100 WBC (Bld)9 %2-11[facility] CenterNatriuretic peptide B [Mass/Vol]Ordered By: Joseluis Mejia on 23-70-3594Umntayaagwu peptide B (Bld) [Mass/Vol]436.0 pg/mL5-100[facility] CenterNeutrophils Auto (Bld) [#/Vol]Ordered By: Joseluis Mejia on 11-36-3413Bwryvnzimyt (Bld) [#/Vol]N/[facility] HospitalNeutrophils/100 WBC Auto (Bld)Ordered By: Joseluis Mejia on 88-29-8981Whqdbghekts/100 WBC (Bld)N/[facility] HospitalNitrite Test strip Ql (U)Ordered By: Joseluis Mejia on 10-06-2023 Nitrite Ql (U)NegativeNegativeAdena Regional Medical CenterNo Panel InformationOrdered By: Kip Gutiérrez on 57-50-3854Wsdmbpqeb ID (NA Multiplex Assay)Enterobacter cloacae complexAdena Regional Medical CenterNo Panel InformationOrdered By: Joseluis Mejia on 12-08-6525Yfqckrylp GFR (CKD-EPI)55.701 mL/MinAdena Regional Medical CenterPharmacy Creatinine Clearance (Chem51.23 [facility] CenterNucleated erythrocytes [Presence] in Blood by Automated countOrdered By: Joseluis Mejia on 38-30-2375Bcklmvakv RBC Auto Ql (Bld) N/[place] HospitalPlatelet adequacy [Presence] in Blood by Light microscopyOrdered By: Joseluis Mejia on 74-31-9407Xhdieyyhe LM Ql (Bld) NormalNoSelect Medical Specialty Hospital - AkronPlatelet mean volume Auto (Bld) [Entitic vol]Ordered By: Joseluis Mejia on 62-30-7958Fertamfx mean volume (Bld) [Entitic vol]10.2 fL6.6-10.1FRegency Hospital Cleveland WestPlatelet morphology finding [Identifier] in BloodOrdered By: Joseluis Mejia on 02-97-6313Lftnoybe morphology finding Nom (Bld)NormalOhioHealth Pickerington [facility] Platelets Auto (Bld) [#/Vol]Ordered By: Joseluis Mejia on 48-72-2743Rtmhyzodn (Bld) [#/Vol]154 10*3/fZ291-663KebozxsfsAdena Regional Medical CenterPoikilocytosis [Presence] in Blood by Light microscopyOrdered By: Joseluis Mejia on 10-06-2023 Poikilocytosis LM Ql (Bld)[facility] HospitalPolychromasia [Presence] in Blood by Light microscopyOrdered By: Joseluis Mejia on 10-06-2023 Polychromasia LM Ql (Bld)[facility] HospitalPotassium [Moles/volume] in Serum or PlasmaOrdered By: Joseluis Mejia on 23-29-2284Ceqpefkpd [Moles/Vol]3.1 mmol/L3.5-5.1FRegency Hospital Cleveland WestProtein Auto test strip (U) [Mass/Vol]Ordered By: Joseluis Mejia on 69-41-9170Qxyamag (U) [Mass/Vol] NegativeNegativeAdena Regional Medical CenterProtein [Mass/volume] in Serum or PlasmaOrdered By: Joseluis Mejia 06-67-3409Fhphcvk [Mass/Vol]6.0 g/dL6.4-8.9 [facility] CenterProthrombin time (PT)Ordered By: Joseluis Mejia on 00-06-6682DS Coag (PPP) [Time]13.9 s9.0-12.9[facility] Comment on above:A hematocrit value greater than 55% may lead to inaccurate results in coagulation testing. Patientshaving hematocrit values >55% require a special collection tube for coagulation studies. Please contact the laboratory at [phone] for redraw instructions.RBC Auto (Bld) [#/Vol]Ordered By: Joseluis Mejia on 08-90-6607YCM (Bld) [#/Vol]3.52 10*6/uL3.90-5.60[facility] CenterRBC morphologyOrdered By: Joseluis Mejia 98-19-0277OUW morphology finding Nom (Bld)N/AFSumma Health Wadsworth - Rittman Medical Centeregmented neutrophils/100 WBC Manual cnt (Bld)Ordered By: Joseluis Mejia on 64-44-1692Qhmnlwofc neutrophils/100 WBC (Bld)76 %50-70[facility] Prebleerum or plasma albumin/globulin mass ratioOrdered By: Joseluis Mejia on 10-06-2023 Albumin/Globulin [Mass ratio]1.1 {ratio}[facility] Prebleerum or plasma anion gap determinationOrdered By: Joseluis Mejia 28-77-3752Amddh gap [Moles/Vol]14.1 mmol/L6.0-15.0[facility] Prebleodium [Moles/volume] in Serum or PlasmaOrdered By: Joseluis Mejia 71-94-5927Quoofy [Moles/Vol]135 mmol/C210-942YxnynclvzKettering Health Preblepecific gravity Auto test strip (U) [Rel density]Ordered By: Joseluis Mejia on 53-23-0482Uergfemw gravity (U) [Rel density]1.0151.001-1.030[facility] Troponin I.cardiac [Mass/volume] in Serum or Plasma by Detection limit <= 0.01 ng/Ordered By: Joseluis Mejia 16-81-3081Reoempah I.cardiac DL <= 0.01 ng/mL [Mass/Vol]19.4 pg/mL0.0-20.0[facility] CenterUrea nitrogen [Mass/volume] in Serum or PlasmaOrdered By: Joseluis Mejia 63-10-3995Jufe nitrogen [Mass/Vol]34 mg/dL7-25[facility] CenterUrine clarity by refractometry automatedOrdered By: Joseluis Mejia 90-24-5571Czafira Refractometry automated (U)ClearCleSelect Medical Cleveland Clinic Rehabilitation Hospital, Edwin ShawUrine glucose measurement by automated test strip (mass/volume)Ordered By: Joseluis Mejia 11-63-7606Fnqszbn Auto test strip (U) [Mass/Vol]Normal mg/dLNormal [facility] CenterUrine hemoglobin detection by automated test stripOrdered By: Joseluis Mejia 53-92-4605Pyvzeoekhr Auto test strip Ql (U) NegativeNegativeAdena Regional Medical CenterUrine leukocyte esterase detection by automated test stripOrdered By: Joseluis Mejia on 65-91-5252Taeeabxxp esterase Auto test strip Ql (U)NegativeNegativeAdena Regional Medical CenterUrobilinogen Auto test strip (U) [Mass/Vol]Ordered By: Joseluis Mejia 78-27-3840Umbrlrvojwat (U) [Mass/Vol]Normal mg/dLNormalAdena Regional Medical CenterWBC Auto (Bld) [#/Vol]Ordered By: Joseluis Mejia on 48-75-0168ZXB (Bld) [#/Vol]24.5 10*3/uL4.1-10.5FRegency Hospital Cleveland WestpH Auto test strip (U)Ordered By: Joseluis Roberto on 55-44-2409eB (U)5.0 [pH]5.0-9.0[facility] CenterCT Abdomen and Pelvis W contrast Amalia 10-01-2023 IMPRESSION: Metastatic neuroendocrine tumor with [...] any questions regarding this interpretation, please call [phone]. If you are unable to reach us at the number above, please feel free to contact [facility] at [phone].DIVISION OF RADIOLOGY* * *Final Report* * * DATE OF EXAM: Oct 01 2023 9:04AM [facility] 0553 - CT PANCREAS/PELVIS [...] organized collection. Mesenteric stranding/edema with central mesenteric/peripancreatic anila mass as above and additional right [...] incidentally noted. Lower thorax: Unremarkable. DIVISION OF RADIOLOGYProvider, [facility] [place] - 10/01/2023 * * *Final Report* * * DATE OF EXAM: Oct 01 2023 9:04AM [facility] 0553 - CT PANCREAS/PELVIS [...] organized collection. Mesenteric stranding/edema with central mesenteric/peripancreatic anila mass as above and additional right [...] prior. No gross inter (more content not included)...[place] ClinicRadiology Study observation (narrative)[facility] PANCREAS/PELVIS W IVCONon 10-01-2023* * *Final Report* * * DATE OF EXAM: Oct 01 2023 9:04AM [facility] 0553 - CT PANCREAS/PELVIS [...] organized collection. Mesenteric stranding/edema with central mesenteric/peripancreatic anila mass as above and additional right [...] No gross interval gastric outlet obstruction otherwise. (more content not included)...CCFRadiology, Radiologist, - 10/02/2023 * * *Final Report* * * DATE OF EXAM: Oct 01 2023 9:04AM [facility] 0553 - CT PANCREAS/PELVIS [...] organized collection. Mesenteric stranding/edema with central mesenteric/peripancreatic anila mass as above and additional right [...] to recent prior. No gross interval gastric outl (more content not included)...[facility] HealthcareRadiology Study observation (narrative)[facility] HealthcareNo Panel InformationOrdered By: Ccf Provider on 49-45-8148Sllpjprhd ClinicNo Panel Informationon [id number] BACTERIA BLD CULT CULTURE, BLOOD: No growth 5 days [facility] HealthcareOriginal Ordering Provider: BOLIVAR BISWASCAROPrisma Health [facility] ECG 12 leadon 62-58-3047Subjfdsrhku Rate : 86 BPM Atrial Rate : 86 BPM P-R Interval : 145 ms QRS Duration : 112 ms Q-T Interval : 364 ms QTC Calculation(Bazett) : 436 ms Calculated P Breckenridge : 67 degrees Calculated R Breckenridge : -11 degrees Calculated T Breckenridge : 76 degrees Sinus rhythm LAE, consider biatrial enlargement Borderline intraventricular conduction delay Low voltage, extremity leads Abnormal R-wave progression, late transition Consider inferior infarct Borderline ST elevation, anterior leads Abnormal ECG 1729 Confirmed by MD BISWAS ANDREW ([id number]), metropolitan editor ANURAG WARD ([id number]) on 08/29/2023 12:45:41 PM NAME : AISHA JULIEN PID : [id number] : 1955 Gender : Male Race : ORD : [id number] Procedure Date : Aug 28 2023 17:28:15 Edit Date : Aug 29 2023 12:45:46 Diagnosis: Sinus rhythm LAE, consider biatrial enlargement Borderline intraventricular conduction delay Low voltage, extremity leads Abnormal R-wave progression, late transition Consider inferior infarct Borderline ST elevation, anterior leads Abnormal ECG 1729 Confirmed by MD BISWAS ANDREW ([id number]), metropolitan editor ANURAG WARD ([id number]) on 08/29/2023 12:45:41 PM Test Reason : Syncope Location : 402 : FVED fved26 Overread By : MD BISWAS ANDREW Edited By : ANURAG WARD Referred By : , Acquired by : [id number],CCFRadiology, Radiologist, - 08/29/2023 Ventricular Rate : 86 BPM Atrial Rate : 86 BPM P-R Interval : 145 ms QRS Duration : 112 ms Q-T Interval : 364 ms QTC Calculation(Bazett) : 436 ms Calculated P Breckenridge : 67 degrees Calculated R Breckenridge : -11 degrees Calculated T Breckenridge : 76 degrees Sinus rhythm LAE, consider biatrial enlargement Borderline intraventricular conduction delay Low voltage, extremity leads Abnormal R-wave progression, late transition Consider inferior infarct Borderline ST elevation, anterior leads Abnormal ECG 1729 Confirmed by MD BISWAS ANDREW ([id number]), metropolitan editor ANURAG WARD ([id number]) on 08/29/2023 12:45:41 PM NAME : AISHA JULIEN PID : [id number] : 1955 Gender : Male Race : ORD : [id number] Procedure Date : Aug 28 2023 17:28:15 Edit Date : Aug 29 2023 12:45:46 Diagnosis: Sinus rhythm LAE, consider biatrial enlargement Borderline intraventricular conduction delay Low voltage, extremity leads Abnormal R-wave progression, late transition Consider inferior infarct Borderline ST elevation, anterior leads Abnormal ECG 1729 Confirmed by MD BISWAS ANDREW ([id number]), metropolitan editor ANURAG WARD ([id number]) on 08/29/2023 12:45:41 PM Test Reason : Syncope Location : 402 : FVED fved26 Overread By : MD BISWAS ANDREW Edited By : ANURAG WARD Referred By : , Acquired by : [id number], [facility] 12 leadOrdered By: Radiologist Radiology on 04-72-7025BNRP [employer] Work Phone: RetiDiagCitizens [facility] 08-18-2023 Echocardiography Report: Transthoracic Echo [facility] Date of service: 08/17/2023 1:08:04 PM Ordering physician: CLAUDIA GEE Indication: Hypotension Technologist: Marimar Curiel RDCS Interpreting physician: Tito Gonsalves MD PATIENT: Name: AISHA JULIEN : 1955 Age: 68 years Gender: M [...] is trace (trace - 1+) late systolic mitralvalve regurgitation 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 [...] * * Final * * * CC [employer] [facility] : [id number]^[employer]^SI^[facility]ITALTom HealthcareECHOOrdered By: Radiologist Radiology on 19-65-2703[facility] Work Phone: ECHOon [phone] Study observation (narrative)THEODORE FajardoECG 12 leadon 12-07-7207Gavjzwwvifu Rate : 76 BPM Atrial Rate : 76 BPM P-R Interval : 161 ms QRS Duration : 105 ms Q-T Interval : 404 ms QTC Calculation(Bazett) : 455 ms Calculated P Breckenridge : 61 degrees Calculated R Breckenridge : -53 degrees Calculated T Breckenridge : 34 degrees Sinus rhythm Abnormal R-wave progression, late transition Left ventricular hypertrophy Inferior infarct, old Abnormal ECG Confirmed by APRYL RUCKER MD ([id number]) on 08/13/2023 4:21:15 PM NAME : AISHA JULIEN PID : [id number] : 1955 Gender : Male Race : ORD : [id number] Procedure Date : Aug 08 2023 13:19:51 [...] Referred By : , Acquired by : ALAN KINGFRadiology, Radiologist, - 08/13/2023 Ventricular Rate : 76 BPM Atrial Rate : 76 BPM P-R Interval : 161 ms QRS Duration : 105 ms Q-T Interval : 404 ms QTC Calculation(Bazett) : 455 ms Calculated P Breckenridge : 61 degrees Calculated R Breckenridge : -53 degrees Calculated T Breckenridge : 34 degrees Sinus rhythm Abnormal R-wave progression, late transition Left ventricular hypertrophy Inferior infarct, old Abnormal ECG Confirmed by APRYL RUCKER MD ([id number]) on 08/13/2023 4:21:15 PM NAME : AISHA JULIEN PID : [id number] : 1955 Gender : Male Race : ORD : [id number] Procedure Date : Aug 08 2023 13:19:51 Edit Date : Aug 13 2023 16:21:17 Diagnosis: Sinus rhythm Abnormal R-wave progression, late transition Left ventricular hypertrophy Inferior infarct, old Abnormal ECG Confirmed by APRYL RUCKER MD ([id number]) on 08/13/2023 4:21:15 PM Test Reason : Pre-OP [facility] : [facility] Overread By : APRYL RUCKER MD Edited By : APRYL RUCKER MD Referred By : , Acquired by : ALDEN KING [facility] 12 leadOrdered By: Radiologist Radiology on 15-18-7278SNKDNorthwest Medical Center Work Phone: basophils Auto (Bld) [#/Vol]Ordered By: Gela Rhoadese on 96-99-4354Pcdkbjkdn (Bld) [#/Vol]0.0 10*3/uL0.0-0.2FRegency Hospital Cleveland WestBasophils/100 WBC Auto (Bld)Ordered By: Gela Rhoadese on 19-35-2420Vrdzrpbxa/100 WBC (Bld)0.9 %.[facility] Calcium [Mass/volume] in Serum or PlasmaOrdered By: Gela Noeskiene on 06-15-5008Adikiao [Mass/Vol]8.5 mg/dL8.6-10.3FRegency Hospital Cleveland West Carbon dioxide, total [Moles/volume] in Serum or PlasmaOrdered By: Gela Noeskiene on 83-01-5136QB5 [Moles/Vol]26.0 mmol/L21.0-31.0[facility] CenterChloride [Moles/volume] in Serum or PlasmaOrdered By: Gela Semaskiene on 07-40-0883Wnrbjixt [Moles/Vol]105 mmol/C82-798HazhjwhmeAdena Regional Medical CenterCreatinine [Mass/volume] in Serum or PlasmaOrdered By: Gela Noeskiene on 02-93-9207Cgcibjkcdw [Mass/Vol]1.71 mg/dL0.70-1.30[facility] CenterComment on above:Delta: 2.86 on 07/25/2346Eosinophils Auto (Bld) [#/Vol]Ordered By: Gela Semaskiene on 70-29-5464Tjzlqlfdotf (Bld) [#/Vol]0.4 10*3/uL0.0-0.45[facility] CenterEosinophils/100 WBC Auto (Bld)Ordered By: Gela Eller on 89-66-4341Vvqhoqbzowt/100 WBC (Bld)7.7 %.[facility] CenterErythrocyte distribution width Auto (RBC) [Ratio]Ordered By: Gela Eller on 73-56-0453Yxkpdiurrof distribution width (RBC) [Ratio]12.1 %12.0-14.8[facility] CenterGlucose [Mass/volume] in Serum or PlasmaOrdered By: Gela Eller on 55-66-8075Hiygdjh [Mass/Vol]115 mg/iJ79-511KcuplosjkAdena Regional Medical CenterComment on above:ADA recommended reference rangeRandom Glucose Reference Range is dependent on time and content of last meal. Glucose of more than 200 mg/dL in a nonstressed, ambulatory subject supports the diagnosisof Diabetes Mellitus.Hematocrit Auto (Bld) [Volume fraction]Ordered By: Gela Eller on 03-36-7890Ooddwssobm (Bld) [Volume fraction]31.2 %38.8-50.0[facility] CenterHemoglobin [Mass/volume] in BloodOrdered By: Gela Eller on 58-11-2062Wrlvqcpzvm (Bld) [Mass/Vol]10.6 g/dL13.0-17.0[facility] CenterLeukocytes [#/volume] corrected for nucleated erythrocytes in Blood by Automated coun Ordered By: Gela Eller on 06-05-4092XON corrected for nucl RBC Auto (Bld) [#/Vol]5.0 10*3/uL4.1-10.5FRegency Hospital Cleveland WestLymphocytes Auto (Bld) [#/Vol]Ordered By: Gela Eller on 82-89-3285Solhxqwjrmh (Bld) [#/Vol] 0.8 10*3/uL1.00-4.8[facility] CenterLymphocytes/100 WBC Auto (Bld)Ordered By: Gela Eller on 74-08-7087Uwdhtugdmih/100 WBC (Bld)15.8 %. [facility] CenterMCH Auto (RBC) [Entitic mass]Ordered By: Gela Eller on 28-41-5628CDP (RBC) [Entitic mass]30.1 pg27.5-35.2FRegency Hospital Cleveland WestMCHC Auto (RBC) [Mass/Vol]Ordered By: Gela Eller on 50-46-4921FLGI (RBC) [Mass/Vol]34.0 g/dL32.5-35.6FRegency Hospital Cleveland WestMCV Auto (RBC) [Entitic vol]Ordered By: Gela Eller on 45-01-0121WTE (RBC) [Entitic vol]88.6 fL83.5-101[facility] CenterMonocytes Auto (Bld) [#/Vol]Ordered By: Gela Eller on 15-99-5166Voxlnlxbx (Bld) [#/Vol]1.1 10*3/uL0.0-0.8[facility] CenterMonocytes/100 WBC Auto (Bld)Ordered By: Gela Eller on 17-97-7816Ahliljfys/100 WBC (Bld)22.7 %. [facility] CenterNeutrophils Auto (Bld) [#/Vol]Ordered By: Gela Eller on 14-15-7440Igiqkycecme (Bld) [#/Vol]2.6 10*3/uL1.8-7.7FRegency Hospital Cleveland WestNeutrophils/100 WBC Auto (Bld)Ordered By: Gela Eller on 22-30-2013Lhjlojvywdo/100 WBC (Bld)52.9 %.[facility] No Panel InformationOrdered By: Gela Eller on 35-86-6975Wvzzatjgw GFR (CKD-EPI)43.064 mL/MinAdena Regional Medical CenterPharmacy Creatinine Clearance (Chem41.35[facility] CenterNucleated erythrocytes [Presence] in Blood by Automated countOrdered By: Gela Eller on 07-26-2023 Nucleated RBC Auto Ql (Bld)0.2 /100{WBC}0-0.5FRegency Hospital Cleveland West Platelet mean volume Auto (Bld) [Entitic vol]Ordered By: Gela Eller on 56-42-0076Xexccgzz mean volume (Bld) [Entitic vol]10.2 fL6.6-10.1FRegency Hospital Cleveland WestPlatelets Auto (Bld) [#/Vol]Ordered By: Gela Eller on 48-66-0724Iphlrkpvr (Bld) [#/Vol]190 10*3/zZ579-358GrfndbjgoAdena Regional Medical CenterPotassium [Moles/volume] in Serum or PlasmaOrdered By: Gela Eller on 12-71-7882Frgudsril [Moles/Vol]3.9 mmol/L3.5-5.1FRegency Hospital Cleveland WestRBC Auto (Bld) [#/Vol]Ordered By: Gela Eller on 33-99-4862HCO (Bld) [#/Vol]3.52 10*6/uL3.90-5.60[facility] Prebleerum or plasma anion gap determinationOrdered By: Gela Eller on 32-39-4502Adtxe gap [Moles/Vol]11.9 mmol/L6.0-15.0[facility] Prebleodium [Moles/volume] in Serum or PlasmaOrdered By: Gela Eller on 78-69-6508Twdsac [Moles/Vol]139 mmol/V920-327TjipvidxmAdena Regional Medical CenterUrea nitrogen [Mass/volume] in Serum or PlasmaOrdered By: Gela Eller on 81-87-2715Dcgs nitrogen [Mass/Vol]29 mg/dL7-25[facility] CenterWBC Auto (Bld) [#/Vol]Ordered By: Gela Eller on 23-53-6276PSQ (Bld) [#/Vol]5.0 10*3/uL 4.1-10.5FRegency Hospital Cleveland WestAlanine aminotransferase [Enzymatic activity/volume] in Serum or PlasmaOrdered By: Gela Eller on 27-82-4982OQZ [Catalytic activity/Vol]9 U/L7-52[facility] CenterAlbumin [Mass/volume] in Serum or Plasma by Bromocresol green (BCG) dye binding metho Ordered By: Gela Eller on 31-99-4396Nqaxzny BCG dye [Mass/Vol]3.4 g/dL 3.5-5.7FRegency Hospital Cleveland WestAlkaline phosphatase [Enzymatic activity/volume] in Serum or PlasmaOrdered By: Gela Eller on 63-57-7797RJD [Catalytic activity/Vol]60 U/D75-880ZucvprjyiAdena Regional Medical CenterAspartate aminotransferase [Enzymatic activity/volume] in Serum or PlasmaOrdered By: Gela Eller on 08-07-9156SFG [Catalytic activity/Vol]16 U/T70-58QfrzvmwyoAdena Regional Medical CenterBilirubin.total [Mass/volume] in Serum or PlasmaOrdered By: Gela Eller on 95-11-1813Jrzjzncdl [Mass/Vol]0.7 mg/dL0.3-1.0[facility] CenterGlobulin Calc (S) [Mass/Vol]Ordered By: Gela Eller on 46-79-5328Wiooecsk (S) [Mass/Vol]2.7 g/dLAdena Regional Medical Center Protein [Mass/volume] in Serum or PlasmaOrdered By: Gela Eller on 47-21-5608Qykpmbs [Mass/Vol]6.1 g/dL6.4-8.9[facility] Comment on above:Delta: 7.8 on 07/24/23-8Serum or plasma albumin/globulin mass ratioOrdered By: Gela Eller on 55-05-7454Wjostij/Globulin [Mass ratio] 1.3 {ratio}[facility] CenterAlanine aminotransferase [Enzymatic activity/volume] in Serum or PlasmaOrdered By: Kip Gutiérrez on 39-58-7494BUZ [Catalytic activity/Vol]12 U/L7-52[facility] CenterAlbumin [Mass/volume] in Serum or Plasma by Bromocresol green (BCG) dye binding metho Ordered By: Kip Gutiérrez on 54-99-5708Dqcjodl BCG dye [Mass/Vol]4.3 g/dL3.5-5.7 [facility] CenterAlkaline phosphatase [Enzymatic activity/volume] in Serum or PlasmaOrdered By: Kip Gutiérrez on 30-62-2004BAV [Catalytic activity/Vol]72 U/A98-025TkpggagsnAdena Regional Medical CenterAspartate aminotransferase [Enzymatic activity/volume] in Serum or PlasmaOrdered By: Kip Gutiérrez on 93-13-5092BXL [Catalytic activity/Vol]24 U/G50-20WlldjrkccAdena Regional Medical CenterAutomated erythrocytes count in urine sediment (number/area) Ordered By: Kip Gutiérrez on 76-77-7334FFH Auto (Urine sed) [#/Area]5-9 [HPF]0-4 [facility] CenterAutomated leukocytes count in urine sediment (number/area)Ordered By: Kip Gutiérrez on 98-38-4229SLY Auto (Urine sed) [#/Area]0-1 [HPF]0-4FRegency Hospital Cleveland WestBasophils Auto (Bld) [#/Vol]Ordered By: Kip Gutiérrez on 93-58-1095Opmbybdst (Bld) [#/Vol]0.0 10*3/uL 0.0-0.2FRegency Hospital Cleveland WestBasophils/100 WBC Auto (Bld)Ordered By: Kip Gutiérrez on 52-03-4909Vxocwaeoz/100 WBC (Bld)0.5 %.[facility] CenterBilirubin Test strip Ql (U)Ordered By: Kip Gutiérrez on 07-24-2023 Bilirubin Ql (U)NegativeNegativeAdena Regional Medical Center Bilirubin.direct [Mass/volume] in Serum or PlasmaOrdered By: Kip Gutiérrez on 56-11-7628Yzfzusymf.direct [Mass/Vol]0.20 mg/dL0.03-0.18FRegency Hospital Cleveland WestBilirubin.total [Mass/volume] in Serum or PlasmaOrdered By: Kip Gutiérrez on 53-54-3563Rajeqtqgn [Mass/Vol]0.8 mg/dL0.3-1.0[facility] CenterCalcium [Mass/volume] in Serum or PlasmaOrdered By: Kip Gutiérrez on 63-24-8260Fmiyybv [Mass/Vol]9.6 mg/dL8.6-10.3FRegency Hospital Cleveland WestCarbon dioxide, total [Moles/volume] in Serum or PlasmaOrdered By: Kip Gutiérrez on 33-60-9232TJ5 [Moles/Vol]34.9 mmol/L21.0-31.0[facility] CenterChloride [Moles/volume] in Serum or PlasmaOrdered By: Kip Gutiérrez on 78-75-5945Qrwtymnh [Moles/Vol]84 mmol/X96-115AtrnsqzwzAdena Regional Medical CenterColor Auto (U)Ordered By: Kip Gutirérez on 92-19-4277Dwhwd (U) YellowYellowAdena Regional Medical CenterCreatinine [Mass/volume] in Serum or PlasmaOrdered By: Kip Gutiérrez on 43-40-7296Akamgsdfuj [Mass/Vol]4.59 mg/dL 0.70-1.30[facility] CenterCreatinine [Mass/volume] in Urine Ordered By: Gela Eller on 01-61-8136Lbemkftrzz (U) [Mass/Vol]141.0 mg/dL 14.0-26.0[facility] CenterEosinophils Auto (Bld) [#/Vol]Ordered By: Kip Gutiérrez on 91-27-1987Yswyfurhglw (Bld) [#/Vol]0.1 10*3/uL0.0-0.45 [facility] CenterEosinophils/100 WBC Auto (Bld)Ordered By: Kip Gutiérrez on 52-96-5409Olgxlyhkjbk/100 WBC (Bld)1.0 %.[facility] CenterErythrocyte distribution width Auto (RBC) [Ratio]Ordered By: Kip Gutiérrez on 19-92-5764Eabxivqvnjb distribution width (RBC) [Ratio]12.4 %12.0-14.8 [facility] CenterGlobulin Calc (S) [Mass/Vol]Ordered By: Kip Gutiérrez on 08-90-1374Rghjjiyy (S) [Mass/Vol]3.5 g/dLAdena Regional Medical CenterGlucose [Mass/volume] in Serum or PlasmaOrdered By: Kip Gutiérrez on 80-59-5287Qfhgrkp [Mass/Vol]128 mg/aV66-315SmqjlbaeaAdena Regional Medical Center Comment on above:ADA recommended reference rangeRandom Glucose Reference Range is dependent on time and content of last meal. Glucose of more than 200 mg/dL in a nonstressed, ambulatory subject supports the diagnosisof Diabetes Mellitus. Hematocrit Auto (Bld) [Volume fraction]Ordered By: Kip Gutiérrez on 07-24-2023 Hematocrit (Bld) [Volume fraction]40.5 %38.8-50.0[facility] CenterHemoglobin [Mass/volume] in BloodOrdered By: Kip Gutiérrez on 07-24-2023 Hemoglobin (Bld) [Mass/Vol]13.7 g/dL13.0-17.0[facility] INR in Platelet poor plasma by Coagulation assayOrdered By: Kip Gutiérrez on 81-94-7629LFD Coag (PPP) [Relative time]1.0 {INR}[facility] Medical CenterComment on above:INR Therapeutic Range A) Pre- and Peroperative OAT started two weeks before surgery. NOT HIP SURGERY: 1.5 - 2.5 HIP SURGERY: 2 - 3B) Primary and secondary prevention of venous THROMBOSIS: 2 - 3C) Active venous thrombosis, pulmonary embolismand prevention of recurrent venous thrombosis: 2 - 3D) Prevention of arterial thromboembolismincluding patients with mechanical heart valves: 3 - 4.5Ketones Auto test strip (U) [Mass/Vol]Ordered By: Kip Gutiérrez on 04-90-8541Lobnwwj (U) [Mass/Vol]TraceNegativeAdena Regional Medical CenterLaboratory - UrinalysisOrdered By: Kip Gutiérrez on 07-24-2023 Hyaline casts LM Ql (Urine sed)None seen [LPF]0-8[facility] Medical CenterLeukocytes [#/volume] corrected for nucleated erythrocytes in Blood by Automated counOrdered By: Kip Gutiérrez on 39-00-4646OWE corrected for nucl RBC Auto (Bld) [#/Vol]7.3 10*3/uL4.1-10.5FRegency Hospital Cleveland WestLipase [Enzymatic activity/volume] in Serum or PlasmaOrdered By: Kip Gutiérrez on 63-43-7847Qkkswh [Catalytic activity/Vol]90.0 U/L11.0-82.0[facility] Medical CenterLymphocytes Auto (Bld) [#/Vol]Ordered By: Kip Gutiérrez on 36-45-7679Ougytfoxdww (Bld) [#/Vol]0.9 10*3/uL1.00-4.8[facility] CenterLymphocytes/100 WBC Auto (Bld)Ordered By: Kip Gutiérrez on 07-24-2023 Lymphocytes/100 WBC (Bld)12.6 %.[facility] HamiltonH Auto (RBC) [Entitic mass]Ordered By: Kip Gutiérrez on 75-69-3120HTR (RBC) [Entitic mass] 29.8 pg27.5-35.2FRegency Hospital Cleveland WestMCHC Auto (RBC) [Mass/Vol] Ordered By: Kip Gutiérrez on 91-32-2699DMEB (RBC) [Mass/Vol]33.8 g/dL32.5-35.6 [facility] CenterMCV Auto (RBC) [Entitic vol]Ordered By: Kip Gutiérrez on 97-72-9584OUP (RBC) [Entitic vol]88.1 fL83.5-101[facility] CenterMagnesium [Mass/volume] in Serum or PlasmaOrdered By: Gela Eller on 38-26-6250Kfdqotykn [Mass/Vol]2.1 mg/dL1.9-2.7FRegency Hospital Cleveland WestMonocyte distribution width [Entitic volume] in Blood by Automated Ordered By: Kip Gutiérrez on 37-09-0109Uquillib distribution width Auto (Bld) [Entitic vol]21.73 %0.00-20.00[facility] Medical CenterComment on above: For adults in ED, MDW > 20.0 may be associated with a higher risk of sepsis during the first 12 hrs of hospital admissionMonocytes Auto (Bld) [#/Vol]Ordered By: Kip Gutiérrez on 19-67-4921Zvllthuzt (Bld) [#/Vol]0.8 10*3/uL0.0-0.8 [facility] CenterMonocytes/100 WBC Auto (Bld)Ordered By: Kip Gutiérrez on 32-12-6143Dviutdnfr/100 WBC (Bld)10.3 %.[facility] Medical CenterNeutrophils Auto (Bld) [#/Vol]Ordered By: Kip Gutiérrez on 07-24-2023 Neutrophils (Bld) [#/Vol]5.5 10*3/uL1.8-7.7FRegency Hospital Cleveland West Neutrophils/100 WBC Auto (Bld)Ordered By: Kip Gutiérrez on 07-24-2023 Neutrophils/100 WBC (Bld)75.6 %.[facility] CenterNitrite Test strip Ql (U)Ordered By: Kip Gutiérrez on 33-42-1623Ajkqyfq Ql (U)Negative NegativeAdena Regional Medical CenterNo Panel InformationOrdered By: Kip Gutiérrez on 50-65-8553Dionejqme GFR (CKD-EPI)13.168 mL/MinAdena Regional Medical CenterPharmacy Creatinine Clearance (Chem15.40[facility] CenterNucleated erythrocytes [Presence] in Blood by Automated countOrdered By: Kip Gutiérrez on 93-12-7782Nbsvpdqdi RBC Auto Ql (Bld)0.2 /100{WBC}0-0.5 [facility] CenterPlatelet mean volume Auto (Bld) [Entitic vol] Ordered By: Kip Gutiérrez on 86-30-5142Ikbhwkln mean volume (Bld) [Entitic vol] 10.8 fL6.6-10.1FRegency Hospital Cleveland WestPlatelets Auto (Bld) [#/Vol] Ordered By: Kip Gutiérrez on 64-05-5584Mzqtyanrn (Bld) [#/Vol]256 10*3/bT446-473 [facility] CenterPotassium [Moles/volume] in Serum or Plasma Ordered By: Kip Gutiérrez on 27-53-7723Dsvhvswbo [Moles/Vol]2.9 mmol/L3.5-5.1 [facility] CenterComment on above:Critical Result Called to and read back by: ANDREAS CARABALLO at: 07/24/2023 13:30:58 by:MLGProtein Auto test strip (U) [Mass/Vol]Ordered By: Kip Gutiérrez on 47-71-3070Sucqjvz (U) [Mass/Vol]30 mg/dLNegativeAdena Regional Medical CenterProtein [Mass/volume] in Serum or PlasmaOrdered By: Kip Gutiérrez on 68-62-3763Cvtkrvj [Mass/Vol]7.8 g/dL6.4-8.9 [facility] CenterProthrombin time (PT)Ordered By: Kip Gutiérrez on 26-96-2267DE Coag (PPP) [Time]12.2 s9.0-12.9[facility] Comment on above:A hematocrit value greater than 55% may lead to inaccurate results in coagulation testing. Patientshaving hematocrit values >55% require a special collection tube for coagulation studies. Please contact the laboratory at [phone] for redraw instructions.RBC Auto (Bld) [#/Vol]Ordered By: Kip Gutiérrez on 67-64-3406FKY (Bld) [#/Vol]4.60 10*6/uL3.90-5.60[facility] Health Prebleerum or plasma albumin/globulin mass ratioOrdered By: Kip Gutiérrez on 25-34-9247Akxayix/Globulin [Mass ratio]1.2 {ratio}[facility] Prebleerum or plasma anion gap determinationOrdered By: Kip Gutiérrez on 21-17-2846Bphpj gap [Moles/Vol]18.0 mmol/L6.0-15.0[facility] Prebleerum or plasma non-glucuronidated bilirubin measurement (mass/volume) Ordered By: Kip Gutiérrez on 36-58-9418Qrqkwhwdu.indirect [Mass/Vol]0.6 mg/dL [facility] Prebleodium [Moles/volume] in Serum or PlasmaOrdered By: Kip Gutiérrez on 05-60-5679Cipxgf [Moles/Vol]134 mmol/R793-306SshitvykoKettering Health Prebleodium [Moles/volume] in UrineOrdered By: Gela Eller on 88-80-2538Llogvu (U) [Moles/Vol]41 mmol/LFRegency Hospital Cleveland West Comment on above:No reference range establishedSpecific gravity Auto test strip (U) [Rel density]Ordered By: Kip Gutiérrez on 49-72-6660Qitdkazn gravity (U) [Rel density]1.0151.001-1.030[facility] Health Preblequamous epithelial cells detection in urine sediment by light microscopyOrdered By: Kip Gutiérrez on 04-77-0080Caykibzdoq cells.squamous LM Ql (Urine sed)None seen [HPF] 0-2FRegency Hospital Cleveland WestTroponin I.cardiac [Mass/volume] in Serum or Plasma by Detection limit <= 0.01 ng/Ordered By: Kip Gutiérrez on 07-24-2023 Troponin I.cardiac DL <= 0.01 ng/mL [Mass/Vol]11.8 pg/mL0.0-20.0[facility] CenterUrea nitrogen [Mass/volume] in Serum or PlasmaOrdered By: Kip Gutiérrez on 68-71-3160Nwfr nitrogen [Mass/Vol]56 mg/dL7-[facility] CenterUrine bacteria detection by automated methodOrdered By: Kip Gutiérrez on 74-36-8397Gshdocti Auto Ql (U)None seenNone SeenAdena Regional Medical CenterUrine clarity by refractometry automatedOrdered By: Kip Gutiérrez on 37-51-8760Myjsdaw Refractometry automated (U)ClearCleSelect Medical Cleveland Clinic Rehabilitation Hospital, Edwin ShawUrine glucose measurement by automated test strip (mass/volume)Ordered By: Kip Gutiérrez on 70-82-8796Urisspi Auto test strip (U) [Mass/Vol]Normal mg/dLNormalAdena Regional Medical CenterUrine hemoglobin detection by automated test stripOrdered By: Kip Gutiérrez on 07-24-2023 Hemoglobin Auto test strip Ql (U)NegativeNegativeAdena Regional Medical CenterUrine leukocyte esterase detection by automated test stripOrdered By: Kip Gutiérrez on 82-89-5187Xnrtziqlu esterase Auto test strip Ql (U)NegativeNegative [facility] CenterUrobilinogen Auto test strip (U) [Mass/Vol] Ordered By: Kip Gutiérrez on 57-10-4229Vvekectnorin (U) [Mass/Vol]Normal mg/dL NormalAdena Regional Medical CenterWBC Auto (Bld) [#/Vol]Ordered By: Kip Gutiérrez on 96-81-0011TOC (Bld) [#/Vol]7.3 10*3/uL4.1-10.5FRegency Hospital Cleveland WestpH Auto test strip (U)Ordered By: Kip Gutirérez on 53-20-4103rX (U)5.5 [pH]5.0-9.0[facility] CenterTobacco Screening.on 23-16-3711Vsppwji use status CPHSb) [facility] 250 DO Work Phone: Activated partial thromboplastin time (aPTT) in platelet poor plasma by coagulation aOrdered By: Joselito Madsen on 60-98-4214jBZU Coag (PPP) [Time]29.1 s25.1-36.5FRegency Hospital Cleveland WestBasophils Auto (Bld) [#/Vol]Ordered By: Joselito Madsen on 66-11-0120Soefcriaf (Bld) [#/Vol]0.0 10*3/uL0.0-0.2FRegency Hospital Cleveland WestBasophils/100 WBC Auto (Bld) Ordered By: Joselito Madsen on 47-29-9251Imfzktimv/100 WBC (Bld)0.7 %.[facility] CenterCarbon dioxide, total [Moles/volume] in Serum or Plasma Ordered By: Joselito Madsen on 24-11-4998EA4 [Moles/Vol]24.1 mmol/L21.0-31.0[facility] CenterChloride [Moles/volume] in Serum or PlasmaOrdered By: Joselito Madsen on 18-35-5317Ouabegcw [Moles/Vol]108 mmol/M74-692UwqnkvcfhAdena Regional Medical CenterCholesterol [Mass/volume] in Serum or PlasmaOrdered By: Joselito Madsen on 45-68-6406Zdyrrhbbyqv [Mass/Vol]123 mg/oS320-259IqqdmnxktAdena Regional Medical CenterComment on above:Chol less than 200 mg/dl low riskChol 201-239 mg/dl borderline riskChol 240 mg/dl and greater high riskCholesterol in LDL Calc [Mass/Vol]Ordered By: Joselito Madsen on 77-66-5101Ktnpmfononc in LDL [Mass/Vol]49 mg/dL0-100[facility] CenterComment on above:LDL ATP III CLASSIFICATIONLDL less than 100 mg/dL OptimalLDL 100-129 mg/dL Near or above emkbnviOJX866-839 mg/dL Borderline highLDL 160-189 mg/dL HighLDL greater than 189 mg/dL Very highCholesterol in VLDL Calc [Mass/Vol]Ordered By: Joselito Madsen on 14-90-8459Tpzszvzygpo in VLDL [Mass/Vol]10 mg/dLAdena Regional Medical CenterCreatinine [Mass/volume] in Serum or PlasmaOrdered By: Joselito Madsen on 65-33-2590Pqgmfpzmqn [Mass/Vol]1.22 mg/dL0.70-1.30[facility] CenterEosinophils Auto (Bld) [#/Vol]Ordered By: Joselito Madsen on 01-15-2023 Eosinophils (Bld) [#/Vol]0.5 10*3/uL0.0-0.45[facility] Eosinophils/100 WBC Auto (Bld)Ordered By: Joselito Madsen on 81-24-8290Gsrvyrlipqm/100 WBC (Bld)9.6 %.[facility] CenterErythrocyte distribution width Auto (RBC) [Ratio]Ordered By: Joselito Madsen on 45-75-0661Ddtvtdigmyi distribution width (RBC) [Ratio]13.3 %12.0-14.8[facility] CenterHematocrit Auto (Bld) [Volume fraction]Ordered By: Joselito Madsen on 94-25-7321Tbgjwwnxqs (Bld) [Volume fraction]38.8 %38.8-50.0[facility] CenterHemoglobin [Mass/volume] in BloodOrdered By: Joselito Madsen on 23-62-3784Hqjgvmthfh (Bld) [Mass/Vol]12.7 g/dL13.0-17.0[facility] CenterLaboratory - Chemistry and Chemistry - challengeon 05-71-3650Wmyhqvjhlst [Mass/Vol]123\S\123 below low wsbjwaofi528-984QU-Hmuvh [place] [employer]Si[employer]Spect[employer] 250 DO Work Phone: Comment on above:Chol less than 200 mg/dl low risk Chol 201-239 mg/dl borderline risk Chol 240 mg/dl and greater high risk Cholesterol in LDL [Mass/Vol]49\S\67Vopsij0-537NM-Teojs [place] [employer] 250 DO Work Phone: Comment on above:LDL ATP III CLASSIFICATION LDL less than 100 mg/dL Optimal LDL 100-129 mg/dL Near or above optimal LDL 130-159 mg/dL Borderline high LDL 160-189 mg/dL High LDL greater than 189 mg/dL Very high Laboratory - CoagulationOrdered By: Joselito Madsen on 94-30-9527CC Coag (PPP) [Time] 11.0 s9.0-12.9[facility] CenterLeukocytes [#/volume] corrected for nucleated erythrocytes in Blood by Automated counOrdered By: Joselito Madsen on 23-31-2274TBB corrected for nucl RBC Auto (Bld) [#/Vol]5.0 10*3/uL4.1-10.5 [facility] CenterLymphocytes Auto (Bld) [#/Vol]Ordered By: Joselito Madsen on 73-89-4347Nfprkuwavnw (Bld) [#/Vol]1.0 10*3/uL1.00-4.8[facility] CenterLymphocytes/100 WBC Auto (Bld)Ordered By: Joselito Madsen on 80-91-6079Zgtytaumifb/100 WBC (Bld)19.2 %.[facility] HamiltonH Auto (RBC) [Entitic mass]Ordered By: Joselito Madsen on 96-24-9459IJM (RBC) [Entitic mass]29.2 pg27.5-35.2FRegency Hospital Cleveland WestMCHC Auto (RBC) [Mass/Vol] Ordered By: Joselito Madsen on 88-63-4796GWLO (RBC) [Mass/Vol]32.7 g/dL32.5-35.6 [facility] CenterMCV Auto (RBC) [Entitic vol]Ordered By: Joselito Madsen on 49-52-1770VDC (RBC) [Entitic vol]89.1 fL83.5-101[facility] CenterMonocytes Auto (Bld) [#/Vol]Ordered By: Joselito Madsen on 01-15-2023 Monocytes (Bld) [#/Vol]0.9 10*3/uL0.0-0.8[facility] Monocytes/100 WBC Auto (Bld)Ordered By: Joselito Madsen on 64-48-0469Nhljovnmt/100 WBC (Bld)17.1 %.[facility] Medical CenterNeutrophils Auto (Bld) [#/Vol] Ordered By: Joselito Madsen on 04-88-1668Ngfxjenlgyv (Bld) [#/Vol]2.7 10*3/uL1.8-7.7 [facility] CenterNeutrophils/100 WBC Auto (Bld)Ordered By: Joselito Madsen on 77-62-0310Gtejwlgrati/100 WBC (Bld)53.4 %.[facility] CenterNo Panel InformationOrdered By: Joselito Madsen on 37-39-4380Dwjttadwe GFR (CKD-EPI)> 60.0 mL/MinAdena Regional Medical CenterPharmacy Creatinine Clearance (ChemN/[facility] HospitalNo Panel Informationon .0\S\0.5Juesum4.0-0.2MP-[facility] 250 DO Work Phone: Comment on above:PERFORMED BY:[facility], [place] [phone] MEDICAL DIRECTORRAHEL TREVINO M.D.0.5\S\0.5above high threshold0.0-0.45MP-[facility] 250 DO Work Phone: [phone]\S\0.9above high threshold0.0-0.8MP-[facility] 250 DO Work Phone: [phone]\S\1.0NormalMP-[facility] 250 DO Work Phone: Comment on above:INR Therapeutic Range A) Pre- and Peroperative OAT started two weeks before surgery. NOT HIP SURGERY: 1.5 - 2.5 HIP SURGERY: 2 - 3 B) Primary and secondary prevention of venous THROMBOSIS: 2 - 3 C) Active venous thrombosis, pulmonary embolism and prevention of recurrent venous thrombosis: 2 - 3 D) Prevention of arterial thromboembolism including patients with mechanical heart valves: 3 - 4.52.7\S\2.9Xnxdcd0.8-7.7MP-[facility] 250 DO Work Phone: [phone]\S\0.6Dtuibu0-7.5MP-[place] [facility] 250 DO Work Phone: [phone]\S\0.7Normal.-[facility] 250 DO Work Phone: [phone]\S\9.6Normal.-[facility] 250 DO Work Phone: [phone]\S\17.1Normal.-[facility] 250 DO Work Phone: [phone]\S\19.2Normal.-[facility] 250 DO Work Phone: [phone]\S\53.4Normal.-[facility] 250 DO Work Phone: [phone]\S\9.1Ltvkjg6.6-10.1MP-[facility] 250 DO Work Phone: [phone]\S\935Wczyry487-579WK-Qvxfw [place] [facility] 250 DO Work Phone: [phone]\S\13.1Igwptd32.0-14.8MP-[facility] 250 DO Work Phone: [phone]\S\32.9Xhqmhz75.5-35.6MP-[facility] 250 DO Work Phone: [phone]\S\29.9Epzkmi91.5-35.2MP-[facility] 250 DO Work Phone: [phone]\S\89.9Igfckt70.4-240UQ-Xvsbp [place] [facility] 250 DO Work Phone: [phone]\S\38.7Eokshs19.8-50.0MP-[facility] 250 DO Work Phone: [phone]\S\12.7below low gowpvusuj74.0-17.0MP-[facility] 250 DO Work Phone: [phone]\S\4.25Smyxlh0.90-5.60MP-[facility] 250 DO Work Phone: [phone]\S\5.1Ubsbpu2.1-10.5MP-[facility] 250 DO Work Phone: [phone]\S\29.0Yjupqo83.1-36.5MP-[facility] 250 DO Work Phone: [phone] on above:PERFORMED BY:[facility] [place], [place] [phone] MEDICAL DIRECTORRAHEL TREVINO M.D.11.0\S\11.1Mjqrmo9.0-12.9MP-[facility] 250 DO Work Phone: [phone]\S\10.7Iebetg6.0-15.0MP-[facility] 250 DO Work Phone: [phone]\S\24.2Wvnpfz90.0-31.0MP-[facility] 250 DO Work Phone: [phone]\S\108above high -171UB-Vgtrp [place] [facility] 250 DO Work Phone: [phone]\S\4.1Ackijy8.5-5.1MP-[facility] 250 DO Work Phone: [phone]\S\236Xzykhi197-853SP-Vhfvb [place] [facility] 250 DO Work Phone: [phone]\S\91Lxwdip3-54VH-Zcvph [place] [facility] 250 DO Work Phone: > 60.0NormalMP-[facility] 250 DO Work Phone: [phone]\S\1.94Ekaamq5.70-1.30MP-[facility] 250 DO Work Phone: [phone]\S\1.9Normal<5.0MP-[facility] 250 DO Work Phone: Comment on above:PERFORMED BY:[facility] [place], [place] [phone] MEDICAL DIRECTORRAHEL TREVINO M.D.10\S\10NormalMP-[facility] 250 DO Work Phone: [phone]\S\87Ulgnsd8-084NR-Vqdbb [place] [facility] 250 DO Work Phone: Comment on above:TRIG ATP III CLASSIFICATION TRIG less than 150 mg/dL Normal TRIG 150-199 mg/dL Borderline high RXDQ445-135 mg/dL High TRIG greater than 500 mg/dL Very high Standard traceable to the Center for Disease Conrtrol and Prevention (CDC) test method.64\S\53Pihsni07-70PZ-Pmgmq [place] [facility]Or[facility] 250 DO Work Phone: Comment on above:HDL CHOL ATP-III CLASSIFICATION Cardiovascular Risk HDL > or equal to 60 mg/dL LOW HDL < 40 mg/dL HIGHNucleated erythrocytes [Presence] in Blood by Automated countOrdered By: Joselito Madsen on 34-89-6414Uhtmlhzdg RBC Auto Ql (Bld)0.1 /100{WBC}0-0.5FRegency Hospital Cleveland WestPlatelet mean volume Auto (Bld) [Entitic vol]Ordered By: Joselito Madsen on 15-15-7988Iwyaadmv mean volume (Bld) [Entitic vol]9.0 fL6.6-10.1FRegency Hospital Cleveland WestPlatelet poor plasma international normalized ratio (INR) by coagulation assay (relatOrdered By: Joselito Madsen on 03-68-9160NZJ Coag (PPP) [Relative time]1.0 {INR}[facility] CenterComment on above:INR Therapeutic Range A) Pre- and Peroperative OAT started two weeks before surgery. NOT HIP SURGERY: 1.5 - 2.5 HIP SURGERY: 2 - 3B) Primary and secondary prevention of venous THROMBOSIS: 2 - 3C) Active venous thrombosis, pulmonary embolismand prevention of recurrent venous thrombosis: 2 - 3D) Prevention of arterial thromboembolismincluding patients with mechanical heart valves: 3 - 4.5Platelets Auto (Bld) [#/Vol]Ordered By: Joselito Madsen on 53-57-6684Ccmprdmhs (Bld) [#/Vol]170 10*3/cA657-627KsdppdjbnAdena Regional Medical CenterPotassium [Moles/volume] in Serum or PlasmaOrdered By: Joselito Madsen on 22-67-3582Cxqvkqejr [Moles/Vol]4.6 mmol/L 3.5-5.1FRegency Hospital Cleveland WestRBC Auto (Bld) [#/Vol]Ordered By: Joselito Madsen on 95-18-9153KOB (Bld) [#/Vol]4.36 10*6/uL3.90-5.60[facility] Health Prebleerum or plasma anion gap determinationOrdered By: Joselito Madsen on 06-71-4338Zvtjs gap [Moles/Vol]10.5 mmol/L6.0-15.0[facility] Prebleerum or plasma high density lipoprotein (HDL) cholesterol measurement Ordered By: Joselito Madsen on 22-87-6214Gafxngncanp in HDL [Mass/Vol]64 mg/dL29-71 [facility] CenterComment on above:HDL CHOL ATP-III CLASSIFICATION Cardiovascular RiskHDL > or equal to 60 mg/dL LOWHDL < 40 mg/dL HIGHSerum or plasma total cholesterol/high density lipoprotein (HDL) cholesterol mass ratOrdered By: Joselito Madsen on 65-08-1586Dmajcmlloew.total/Cholesterol in HDL [Mass ratio]1.9 {ratio}<5.0[facility] Prebleodium [Moles/volume] in Serum or PlasmaOrdered By: Joselito Madsen on 02-95-9257Hvcxce [Moles/Vol]138 mmol/P969-067KlektobcbAdena Regional Medical CenterTriglyceride [Mass/volume] in Serum or PlasmaOrdered By: Joselito Madsen on 49-74-3928Grwonynurzlr [Mass/Vol]51 mg/dL0-149[facility] CenterComment on above:TRIG ATP III CLASSIFICATIONTRIG less than 150 mg/dL NormalTRIG 150-199 mg/dL Borderline highTRIG 200-500 mg/dL High TRIG greater than 500 mg/dL Very highStandard traceable to the Center for Disease Conrtrol and Prevention (CDC) test method.Urea nitrogen [Mass/volume] in Serum or PlasmaOrdered By: Joselito Madsen on 76-94-5853Cenb nitrogen [Mass/Vol]19 mg/dL7[facility] Medical CenterWBC Auto (Bld) [#/Vol]Ordered By: Joselito Madsen on 39-55-3236OFW (Bld) [#/Vol] 5.0 10*3/uL4.1-10.5FRegency Hospital Cleveland WestTobacco Screening.on 22-71-2107Prqsx depression screening assessmentNoWashington [facility] 250 DO Work Phone: Fall risk assessmenta) No falls within the last year [facility] 250 DO Work Phone: Tobacco use status CPHSb) NoMEvergreenhealth [facility] [place] 250 DO Work Phone: EVENT MONITORon [phone] [address] EVENT MONITOR PATIENT NAME: AISHA JULIEN : 1955 MED REC NO: [id number] ROOM: ACCOUNT NO: [id number] ADMIT DATE: 11/07/2021 PROVIDER: Inocencio Gutierrez NAME [...] be executed for symptom control. INOCENCIO GUTIERREZ GV/Siddhartha_TTHEN_I Doc#: [id number] CC: Edward J. HemeyerNoMercy Health Lorain HospitalCARDIAC STRESS TESTon [id number] STRESS TEST[address] [address] CARDIAC STRESS TEST PATIENT NAME: AISHA JULIEN : 1955 MED REC NO: [id number] ROOM: ACCOUNT NO: [id number] ADMIT DATE: 11/07/2021 PROVIDER: Inocencio Gutierrez DATE [...] remained at 96%. INOCENCIO GUTIERREZ GV/V_TTRMM_I Doc#: [id number] CC: Rene CannonHolmes County Joel Pomerene Memorial HospitalDIAC STRESS TESTon [id number] STRESS [address] [address] CARDIAC STRESS TEST PATIENT NAME: AISHA JULIEN : 1955 MED REC NO: [id number] ROOM: ACCOUNT NO: [id number] ADMIT DATE: 11/07/2021 PROVIDER: Karina Fajardo MD [...] FAJARDO MD LAURYN/CIARAN_DESTINEEIT Doc#: Unknown CC: Rene Ray [facility] MYOCARDIAL SPECT REST EXERCISE OR RXon [id number] MYOCARDIAL SPECT REST EXERCISE OR RXRadiology exam is complete. No Radiologist dictation. Please follow up with ordering provider. Final resultNoMercy Health Lorain HospitalNo Panel Informationon 11-07-2021 Radiology exam is complete. No Radiologist dictation. Please follow up with ordering provider. [facility] CONSOLIDATEDSTRESS TEST REPORTon [id number] Fajardo MD - 11/07/2021 1:54 PM EDT Formatting of this note might [place] [address] CARDIAC STRESS TEST PATIENT NAME: AISHA JULIEN : 1955 MED REC NO: [id number] ROOM: ACCOUNT NO: [id number] ADMIT DATE: 11/07/2021 PROVIDER: Karina Fajardo MD [...] Dr. Gutierrez on 11/07/2021. KARINA FAJARDO MD MOE_DESTINEEIT Doc#: Unknown CC: Rene GutierrezUniversity Hospitals Cleveland [facility] Center Opax Phone: [facility] HospitaldbTwang Phone: vl DUP CAROTID BILATERALon [phone] DUP CAROTID BILATERALRadiology exam is complete. No Radiologist dictation. Please follow up with ordering provider. Final resultNormalAultman HospitalBryan Pichardo Jr., MD - 11/08/2021 [facility] Vascular Carotid Procedure Patient Name WILY LEONARD Date of Study 11/07/2021 L Date of 1955 Gender Male Age 66 year(s) Race Room Number Corporate ID [id number] # Patient Acct [id number] # MR # [id number] Custodial Operations Manager RT Gómez Interpreting Estephania Pichardo Physician [...] the vertebrals. Signature Electronically signed by RT Gómez(Rosales)(M)(CT)([facility])(Custodial Operations Manager) on 11/07/2021 11:33 AM Findings: Right [...] +--------+-------+-------+------+ + + !Mid ICA !87.54 !27.97 ! !0.68 ! ! ! + +--------+-------+-------+------+ + + !Dist ICA !91.42 !31.86 ! !0.65 ! ! ! + +--------+-------+-------+------+ + + !Prox ECA !96.53 !13.93 ! !0.86 ! ! ! + +--------+-------+-------+------+ + + !Vertebral !61.64 !17.61 ! !0.71 ! ! ! + +--------+-------+-------+------+ + + - There is antegrade vertebral flow noted on the left side. - Additional Measurements:ICAPSV/CCAPSV 0.63.ICAEDV/CCAEDV 1.31.[employer] Phone: radiology Study observation (narrative)[employer] Phone: VL DUP CAROTID BILATERALOrdered By: Brayn Pichardo on [id number] Work Phone: xr CHEST 2 Von [id number] CHEST 2 VEXAMINATION: XR CHEST 2 V HISTORY: Pneumonia COMPARISON: 09/11/2021 TECHNIQUE: [...] Electronically authenticated by: DEBORAH PERALTA Date: 2021-10-31 13:46[facility] HospitalComplete Blood Count with Auto Diffon [id number] (Bld) [#/Vol]0.04 10*3/uLNormal0.00-0.20[place] [facility] SpecialistComment on above:Performed By: #### CMP, TSH reflex FT4, CBCAD, MG, VITD, LIPD #### [facility] [address] [place], [place] [id number]/100 WBC (Bld)0.7 %NormalKeenan Private HospitalComment on above:Performed By: #### CMP, TSH reflex FT4, CBCAD, MG, VITD, LIPD #### [facility] [address] [place], [place] [id number] (Bld) [#/Vol]0.12 10*3/uLNormal0.02-0.50NoAultman Hospital SpecialistComment on above:Performed By: #### CMP, TSH reflex FT4, CBCAD, MG, VITD, LIPD #### [facility] [address] [place], [place] [id number]/100 WBC (Bld)2.2 %NormalKeenan Private HospitalComment on above:Performed By: #### CMP, TSH reflex FT4, CBCAD, MG, VITD, LIPD #### [facility] [address] [place], [place] [id number] distribution width (RBC) [Ratio]14.5 %Normal 11.0-15.0Keenan Private HospitalComment on above:Performed By: #### CMP, TSH reflex FT4, CBCAD, MG, VITD, LIPD #### [facility] [address] [place], [place] [id number] (Bld) [Volume fraction]38.2 %Low38.5-50.0NoDiley Ridge Medical CenterComment on above:Performed By: #### CMP, TSH reflex FT4, CBCAD, MG, VITD, LIPD #### [facility] [address] [place], [place] [id number] (Bld) [Mass/Vol]12.3 g/dLLow13.0-17.1NortherMercy Health [facility] Hospital SpecialistComment on above:Performed By: #### CMP, TSH reflex FT4, CBCAD, MG, VITD, LIPD #### [facility] [address] [place], [place] [id number] (Bld) [#/Vol]1.2 10*3/uLNormal0.9-3.9NoAultman Hospital SpecialistComment on above:Performed By: #### CMP, TSH reflex FT4, CBCAD, MG, VITD, LIPD #### [facility] [address] [place], [place] [id number]/100 WBC (Bld)22.1 %NormalNoAultman Hospital SpecialistComment on above:Performed By: #### CMP, TSH reflex FT4, CBCAD, MG, VITD, LIPD #### [facility] [address] [place], [place] [id number] (RBC) [Entitic mass]29.4 enJsabgm13.0-33.0NoAultman Hospital SpecialistComment on above:Performed By: #### CMP, TSH reflex FT4, CBCAD, MG, VITD, LIPD #### [facility] [address] [place], [place] [id number] (RBC) [Mass/Vol]32.2 g/oXHwdmjh44.0-36.0NoAultman Hospital SpecialistComment on above:Performed By: #### CMP, TSH reflex FT4, CBCAD, MG, VITD, LIPD #### [facility] [address] [place], [place] [id number] (RBC) [Entitic vol]91 gVWqockm53-650Makbqork [place] [facility] SpecialistComment on above:Performed By: #### CMP, TSH reflex FT4, CBCAD, MG, VITD, LIPD #### [facility] [address] [place], [place] [id number] (Bld) [#/Vol]0.9 10*3/uLNormal0.2-0.9NoAultman Hospital SpecialistComment on above:Performed By: #### CMP, TSH reflex FT4, CBCAD, MG, VITD, LIPD #### [facility] [address] [place], [place] [id number]/100 WBC (Bld)16.4 %NormalNoAultman Hospital SpecialistComment on above:Performed By: #### CMP, TSH reflex FT4, CBCAD, MG, VITD, LIPD #### [facility] [address] [place], [place] [id number] (Bld) [#/Vol]3.1 10*3/uLNormal1.5-7.8NortSelect [facility] [place] SpecialistComment on above:Performed By: #### CMP, TSH reflex FT4, CBCAD, MG, VITD, LIPD #### [facility] [address] [place], [place] [id number]/100 WBC (Bld)57.5 %NormalNoAultman Hospital SpecialistComment on above:Performed By: #### CMP, TSH reflex FT4, CBCAD, MG, VITD, LIPD #### [facility] [address] [place], [place] [id number] mean volume (Bld) [Entitic vol]10.30 fLNormal 7.50-12.50NoAultman Hospital SpecialistComment on above:Performed By: #### CMP, TSH reflex FT4, CBCAD, MG, VITD, LIPD #### [facility] [address] [place], [place] [id number] (Bld) [#/Vol]266 10*3/zLYescne747-278Nhusuxji [place] [facility] SpecialistComment on above:Performed By: #### CMP, TSH reflex FT4, CBCAD, MG, VITD, LIPD #### [facility] [address] [place], [place] [id number] (Bld) [#/Vol]4.19 10*6/uLLow4.20-5.80NoAultman Hospital SpecialistComment on above:Performed By: #### CMP, TSH reflex FT4, CBCAD, MG, VITD, LIPD #### [facility] [address] [place], [place] [id number]-YR17.1 nZIieaum25.0-50.0NoAultman Hospital Specialist Comment on above:Performed By: #### CMP, TSH reflex FT4, CBCAD, MG, VITD, LIPD #### [facility] [address] [place], [place] [id number] (Bld) [#/Vol]5.4 10*3/uLNormal3.8-11.0[facility] SpecialistComment on above:Performed By: #### CMP, TSH reflex FT4, CBCAD, MG, VITD, LIPD #### [facility] [address] [place], [place] [id number] Metabolic Panelon 42-63-6613Gmttzhf [Mass/Vol] 4.2 g/dLNormal3.6-5.1NortherMercy Health Lorain Hospital SpecialistComment on above:Performed By: #### CMP, TSH reflex FT4, CBCAD, MG, VITD, LIPD #### [facility] [address] [place], [place] [id number]/Globulin [Mass ratio]1.6 {ratio}Normal1.0-2.5NoDiley Ridge Medical CenterComment on above:Performed By: #### CMP, TSH reflex FT4, CBCAD, MG, VITD, LIPD #### [facility] [address] [place], [place] [id number] [Catalytic activity/Vol]103 U/SXkyoka16-917Wrtfbfjg [place] [facility] SpecialistComment on above:Performed By: #### CMP, TSH reflex FT4, CBCAD, MG, VITD, LIPD #### [facility] [address] [place], [place] [id number] [Catalytic activity/Vol]11 U/LNormal9-46NoAultman Hospital SpecialistComment on above:Result Comment: 07/25/2021 Female reference range changed.Performed By: #### CMP, TSH reflex FT4, CBCAD, MG, VITD, LIPD #### [facility] [address] [place], [place] [id number] gap [Moles/Vol]19 mmol/CCsbyca82-84Dtxlndmw [place] [facility] SpecialistComment on above:Result Comment: Effective 08/30/2019 reference range changed.Performed By: #### CMP, TSH reflex FT4, CBCAD, MG, VITD, LIPD #### [facility] [address] [place], [place] [id number] [Catalytic activity/Vol]17 U/ZOkgqsm07-81Muuahjqe [place] [facility] SpecialistComment on above:Performed By: #### CMP, TSH reflex FT4, CBCAD, MG, VITD, LIPD #### [facility] [address] [place], [place] [id number] [Mass/Vol]0.37 mg/dLNormal0.30-1.20NoAultman Hospital SpecialistComment on above:Performed By: #### CMP, TSH reflex FT4, CBCAD, MG, VITD, LIPD #### [facility] [address] [place], [place] [id number]/CREA15 RatioNormal6-22NoAultman Hospital Specialist Comment on above:Performed By: #### CMP, TSH reflex FT4, CBCAD, MG, VITD, LIPD #### [facility] [address] [place], [place] [id number] [Mass/Vol]9.5 mg/dLNormal8.6-10.2[facility] SpecialistComment on above:Performed By: #### CMP, TSH reflex FT4, CBCAD, MG, VITD, LIPD #### [facility] [address] [place], [place] [id number] [Moles/Vol]104 mmol/WYwcxhc22-807Jtnbfalk [place] [facility] SpecialistComment on above:Performed By: #### CMP, TSH reflex FT4, CBCAD, MG, VITD, LIPD #### [facility] [address] [place], [place] [id number] [Moles/Vol]21 mmol/SSdpmnz95-65Fkmoulgy [place] [facility] SpecialistComment on above:Performed By: #### CMP, TSH reflex FT4, CBCAD, MG, VITD, LIPD #### [facility] [address] [place], [place] [id number] [Mass/Vol]0.9 mg/dLNormal0.7-1.4NortSelect Medical Specialty Hospital [facility] [place] SpecialistComment on above:Performed By: #### CMP, TSH reflex FT4, CBCAD, MG, VITD, LIPD #### [facility] [address] [place], [place] [id number] mL/min/1.47e2Permut>60NoAultman Hospital SpecialistComment on above:Performed By: #### CMP, TSH reflex FT4, CBCAD, MG, VITD, LIPD #### [facility] [address] [place], [place] [id number] mL/min/1.51m0Hvlalg>60NoAultman Hospital SpecialistComment on above:Performed By: #### CMP, TSH reflex FT4, CBCAD, MG, VITD, LIPD #### [facility] [address] [place], [place] [id number] (S) [Mass/Vol]2.6 g/dLNormal1.9-3.7NoDiley Ridge Medical CenterComment on above:Performed By: #### CMP, TSH reflex FT4, CBCAD, MG, VITD, LIPD #### [facility] [address] [place], [place] [id number] [Mass/Vol]92 mg/nEWvaqgc80-37JwxjajwsDiley Ridge Medical CenterComment on above:Result Comment: For FASTING Glucose --- ADA reference ranges: Normal 65-99 mg/dl Prediabetes 100-125 Diabetes >/= 126Performed By: #### CMP, TSH reflex FT4, CBCAD, MG, VITD, LIPD #### [facility] [address] [place], [place] [id number] [Moles/Vol]4.8 mmol/LNormal3.5-5.5NoAultman Hospital SpecialistComment on above:Performed By: #### CMP, TSH reflex FT4, CBCAD, MG, VITD, LIPD #### [facility] [address] [place], [place] [id number] [Mass/Vol]6.8 g/dLNormal6.1-8.1NortherMercy Health Lor[facility] Hospital SpecialistComment on above:Performed By: #### CMP, TSH reflex FT4, CBCAD, MG, VITD, LIPD #### [facility] [address] [place], [place] [id number] [Moles/Vol]139 mmol/EXucvkv195-047Oylfvzfa [place] [facility] SpecialistComment on above:Performed By: #### CMP, TSH reflex FT4, CBCAD, MG, VITD, LIPD #### [facility] [address] [place], [place] [id number] nitrogen [Mass/Vol]14 mg/dLNormal7-25Nortcopper springs hospitaln [facility] SpecialistComment on above:Performed By: #### CMP, TSH reflex FT4, CBCAD, MG, VITD, LIPD #### [facility] [address] [place], [place] [id number] Panelon 59-96-1888Qflhqhiqnei [Mass/Vol]158 mg/dLNormal 125-200NoAultman Hospital SpecialistComment on above:Result Comment: Low risk < 200mg/dL Borderline risk 201-239 mg/dl High risk > or equal to 240Performed By: #### CMP, TSH reflex FT4, CBCAD, MG, VITD, LIPD #### [facility] [address] [place], [place] [id number] in HDL [Mass/Vol]65 mg/dLNormal>40NoAultman Hospital SpecialistComment on above:Result Comment: High Cardiovascular Risk HDL <40 mg/dL Low Cardiovascular Risk HDL > or equal to 60 mg/dlPerformed By: #### CMP, TSH reflex FT4, CBCAD, MG, VITD, LIPD #### [facility] [address] [place], [place] [id number] in LDL [Mass/Vol]81 mg/dLNormalNortSelect Medical Specialty Hospital [facility] [place] SpecialistComment on above:Result Comment: LDL ATP III CLASSIFICATION LDL less than 100 mg/dl Optimal LDL 100-129 mg/dl Near or above optimal LDL 130-159 Borderline high LDL 160-189 High LDL greater than 189 mg/dl Very HighPerformed By: #### CMP, TSH reflex FT4, CBCAD, MG, VITD, LIPD #### [facility] [address] [place], [place] [id number] in VLDL [Mass/Vol]12 mg/dLNormalNortSelect Medical Specialty [facility] [place] SpecialistComment on above:Performed By: #### CMP, TSH reflex FT4, CBCAD, MG, VITD, LIPD #### [facility] [address] [place], [place] [id number].total/Cholesterol in HDL [Mass ratio]2 {ratio} NormalNortcopper springs hospitaln [facility] SpecialistComment on above:Performed By: #### CMP, TSH reflex FT4, CBCAD, MG, VITD, LIPD #### [facility] [address] [place], [place] [id number] [Mass/Vol]60 mg/dMAuqnvm48-936Qdtmsamm [facility] SpecialistComment on above:Result Comment: TRIG ATPIII CLASSIFICATIONS TRIG less than 150 mg/dl Normal TRIG 150-199 mg/dl Borderline High TRIG 200-500 mg/dl High TRIG greather than 500 mg/dl Very HighPerformed By: #### CMP, TSH reflex FT4, CBCAD, MG, VITD, LIPD #### [facility] [address] [place], [place] [id number] 99-02-7621Hynyrumcx [Mass/Vol]1.9 mg/dLNormal 1.5-2.3Nortcopper springs hospitaln [facility] SpecialistComment on above:Performed By: #### CMP, TSH reflex FT4, CBCAD, MG, VITD, LIPD #### [facility] [address] [place], [place] [id number] w/ Reflex to Free T4on 04-34-4793CXE1.370 uIU/mLNormal 0.400-4.500Nortcopper springs hospitaln [facility] SpecialistComment on above:Performed By: #### CMP, TSH reflex FT4, CBCAD, MG, VITD, LIPD #### [facility] [address] [place], [place] [id number] D 25-OHon 05-45-8951NED D 25 OH28 ng/mlLow>29Nortcopper springs hospitaln [facility] SpecialistComment on above:Result Comment: Vitamin D Status Deficiency <20 ng/mL Insufficiency 20-29 ng/mL Optimal 30-100 ng/mL Possible Toxicity >=150 ng/mLPerformed By: #### CMP, TSH reflex FT4, CBCAD, MG, VITD, LIPD #### [facility] [address] [place], [place] [id number] CHEST 2 Von 21-84-7877BP CHEST 2 VEXAMINATION: XR CHEST 2 V HISTORY: Dyspnea COMPARISON: No relevant [...] Electronically authenticated by: DEBORAH PERALTA Date: 2021-09-11 11:13[facility] HospitalPROF CHEM 8 (BAS METB)on 95-27-0546Oezru gap [Moles/Vol]19.0 mmol/LNormalSelect Medical [facility]health Rehabilitation HospitalComment on above:Performed By: #### BMP #### [facility] [address] [place] [address] [address] Vadim KoehlerCalcium [Mass/Vol]9.0 mg/dLNormal8.4-10.2[facility] Comment on above:Performed By: #### BMP #### [facility] [address] [address] [address] Vadim KoehlerChloride [Moles/Vol]97 mmol/LCritically wpi88-943Vqu [facility] CenterComment on above:Performed By: #### BMP #### [facility] [address] [address] [address] Vadim KoehlerCO2 [Moles/Vol]20.0 mmol/LCritically low22.0-30.0The [facility] Medical CenterComment on above:Performed By: #### BMP #### [facility] [address] [address] [address] Vadim KoehlerCreatinine [Mass/Vol]3.03 mg/dLCritically high0.66-1.25The [facility] CenterComment on above:Performed By: #### BMP #### [facility] [address] [address] [address] Vadim BoothGFR-AF OUSYVRXP32 mL/min/1.24z4Ljhzfaubhh low>=60The [facility] Medical CenterComment on above:Performed By: #### BMP #### [facility] [address] [address] [address] Vadim BoothGFR-NON AF HHIVLYPS32 mL/min/1.66t7Jsujxibrze low>=60The [facility] CenterComment on above:Performed By: #### BMP #### [facility] [address] [place] [address] Dr. Vadim KoehlerGlucose [Mass/Vol]120 mg/dLCritically shmt46-590Eee [facility] CenterComment on above:Performed By: #### BMP #### [facility] [address] [place] [address] Dr. Vadim KoehlerPotassium [Moles/Vol]4.0 mmol/LNormal3.4-5.0The [facility] Comment on above:Performed By: #### BMP #### [facility] [address] [place] [address] Dr. Vadim oKehlerSodium [Moles/Vol]132 mmol/LCritically cya701-633Ftz [facility] CenterComment on above:Performed By: #### BMP #### [facility] [address] [place] [address] Dr. Vadim KoehlerUrea nitrogen [Mass/Vol]47.0 mg/dLCritically high9.0-20.0The [facility] CenterComment on above:Performed By: #### BMP #### [facility] [address] [place] [address] Dr. Vadim Villaseñor nitrogen/Creatinine [Mass ratio]15.5 mg/mgNormalThe [facility] CenterComment on above:Performed By: #### BMP #### [facility] [address] [place] [address] Dr. Vadim Koehler Vital Signs Date TimeVital SignValuePerforming FrnnmpezjKwhieuvj40-67-5414 13:22-0400Body aqqqae814.5 cmRahat Jun [employer] Work Phone: [facility]08-28-2025 13:22-0400Body mass index (BMI) [Ratio]24.69 kg/l7Pbefzt Jun [employer] PROMOTER.[employer] Work Phone: [facility]08-28-2025 13:22-0400Body temperature 98.1 [degF]Rahat Jun [employer] PROMOTER.[employer] Work Phone: [place] [address]-28-2025 13:22-0400Body cruwhn99.9 kgRahat Jun [employer]CERT PROMOTER.[employer] Work Phone: [facility]08-28-2025 13:22-0400Diastolic blood dgdtaisk28 mm[Hg]Rahat Jun [employer] PROMOTER.[employer] Work Phone: [facility]08-28-2025 13:22-0400Heart rate96 /min Rahat Rodriguezod [employer] PROMOTER.[employer] Work Phone: [facility]08-28-2025 13:22-0400Respiratory rate 16 /minChinedue Jun [employer]ERT PROMOTER.[employer] Work Phone: [facility]08-28-2025 13:22-7927YuJ9% (BldA) [Mass fraction]99 %Rahat Jun [employer]OMOTER.[employer] Work Phone: [facility]08-28-2025 13:22-0400Systolic blood obbmlcru746 mm[Hg]Rahat Jun [employer] Work Phone: [facility]08-20-2025 09:31-0400Body irzuvg143.5 Mirza Cannon MD Work Phone: [facility] CenterGsndvrrtmy89-64-7730 09:31-0400Body mass index (BMI) [Ratio]24.53 kg/i9CemnkgRene Cannon MD Work Phone: [facility] CenterJtdgqeilpp24-09-5374 09:31-0400Body ilxfse91.43 kgRene Cannon MD Work Phone: [facility] CenterKgrqkmbnmc24-29-5662 09:31-0400Diastolic blood mm[Hg]Rene Cannon MD Work Phone: [facility] CenterEhmasygkbo65-70-3906 09:31-0400Heart rate79 /min Rene Cannon MD Work Phone: [facility] CenterRjcpcyuzox52-66-4535 09:31-1990XzC6% (BldA) [Mass fraction]95 %Rene Cannon MD Work Phone: [facility] CenterSsfnwjzydi23-11-3474 09:31-0400Systolic blood luwqbxxr251 mm[Hg]Rene Cannon MD Work Phone: [facility] CenterSccezztani87-02-4010 13:03-0400Body mass index (BMI) [Ratio]24.81 kg/y9WrpoyRoselyn Leonard MD Work Phone: [facility]2025 13:03-0400Body temperature 97.2 [degF]Roselyn Leonard MD Work Phone: [facility]2025 13:03-0400Body pzrpek55.3 kgRoselyn Leonard MD Work Phone: [facility]2025 13:03-0400Diastolic blood paggljqc52 mm[Hg]Roselyn Leonard MD Work Phone: [facility]2025 13:03-0400Heart rate78 /min Roselyn Leonard MD Work Phone: [place] [address]-17-2025 13:03-0400Respiratory rate 18 /minRoselyn Leonard MD Work Phone: [place] [address]-17-2025 13:03-1791LaI6% (BldA) [Mass fraction]99 %Roselyn Leonard MD Work Phone: [place] [address]-17-2025 13:03-0400Systolic blood oiceztkf073 mm[Hg]Roselyn Leonard MD Work Phone: [facility]07-05-2025 20:32-9765DhD5% (BldA) [Mass fraction]100 %ROSELYN NOGeorgetown Behavioral HospitalComment on above: Order Comment: Specimen Type: ARTERIAL BLOOD SPECIMENOrdering Facility: [facility]ALTHAddress: [address] [place] [address] Performed By: #### ALLMG ####[facility] LABCLIA [id number] [address]07-03-2025 04:21-9576FwA2% (BldA) [Mass fraction]99 %[facility] Comment on above:Order Comment: Specimen Type: ARTERIAL BLOOD SPECIMEN [facility] Address: [address] [place], [place] [address]Performed By: #### ALLBG #### [facility] CLIA [id number] [address] [place], [place] [address]307-02-2025 23:59-5041MlW1% (BldA) [Mass fraction]98 %[facility] HospitalComment on above:Order Comment: Specimen Type: BLOOD SPECIMEN [facility] Address: [address] [place], [place] [address]Performed By: #### [id number], [id number] #### [facility] CLIA [id number] [address] [place], [place] [address]306-19-2025 10:12-0400Diastolic blood nmqsxqob41 mm[Hg]Lab/[place] Work Phone: [facility]06-19-2025 10:12Heart rate75 /min Lab/[place] Work Phone: [facility]06-19-2025 10:120400Respiratory rate 18 /minLab/[place] Work Phone: [facility]06-19-2025 10:12-3723NuP2% (BldA) [Mass fraction]99 %Lab/[facility] Work Phone: [facility]06-19-2025 10:12-0400Systolic blood imdldctn889 mm[Hg]Lab/[facility] Work Phone: [facility]05-29-2025 09:30-0400Body .5 cmItzel Singh APRN.[employer] Work Phone: [facility]05-29-2025 09:30-0400Body mass index (BMI) [Ratio]25.36 kg/d5CxfnuItzel Singh APRN.[employer] Work Phone: [facility]05-29-2025 09:30-0400Body temperature 97.39 [degF]Itzel Singh APRN.[employer] Work Phone: [facility]05-29-2025 09:30-0400Body qifmzo11 kg Itzel Singh APRN.[employer] Work Phone: [facility]05-29-2025 09:30-0400Diastolic blood adotkoiw17 mm[Hg]Itzel Singh APRN.[employer] Work Phone: [facility]05-29-2025 09:30-0400Heart rate73 /min Itzel Singh APRN.[employer] Work Phone: [facility]05-29-2025 09:30-0400Respiratory rate 16 /minItzel Singh APRN.[employer] Work Phone: [facility]05-29-2025 09:30-0607EuA0% (BldA) [Mass fraction]99 %Itzel Singh APRN.[employer] Work Phone: [facility]05-29-2025 09:30-0400Systolic blood altfvyda680 mm[Hg]Itzel Singh APRN.[employer] Work Phone: [facility]05-08-2025 09:45-0400Body temperature 97.59 [degF]Lab/[facility] Work Phone: [facility]05-08-2025 09:45-0400Diastolic blood mm[Hg]Lab/[facility] Work Phone: [facility]05-08-2025 09:45-0400Heart rate97 /min Lab/[facility] Work Phone: [facility]05-08-2025 09:45-0400Respiratory rate 18 /minLab/[facility] Work Phone: [facility]05-08-2025 09:45-0842ByD5% (BldA) [Mass fraction]100 %Lab/[facility] Work Phone: [facility]05-08-2025 09:45-0400Systolic blood mm[Hg][facility] Work Phone: [facility]04-17-2025 08:49-0400Body ztfqoh344.5 Deven Leonard MD Work Phone: [place] [address]-17-2025 08:49-0400Body mass index (BMI) [Ratio]25.3 kg/u1VkywlRoselyn Leonard MD Work Phone: [place] [address]-17-2025 08:49-0400Body temperature 97.2 [degF]Roselyn Leonard MD Work Phone: [place] [address]-17-2025 08:49-0400Body .8 kgRoselyn Leonard MD Work Phone: [place] [address]-17-2025 08:49-0400Diastolic blood mm[Hg]Roselyn Leonard MD Work Phone: [place] [address]-17-2025 08:49-0400Heart rate92 /min Roselyn Leonard MD Work Phone: 1(179) 258-2366[address]17-2025 08:49-0400Respiratory rate 16 /minRoselyn Leonard MD Work Phone: [facility]04-17-2025 08:49-1832KuM3% (BldA) [Mass fraction]100 %Roselyn Leonard MD Work Phone: [facility]04-17-2025 08:49-0400Systolic blood nolxqacs567 mm[Hg]Roselyn Leonard MD Work Phone: [facility]04-01-2025 10:44-0400Body nguxrg048.5 cmEelizabeth Cannon MD Work Phone: [facility] CenterBpwyoiixxn49-27-3094 10:44-0400Body mass index (BMI) [Ratio]24.64 kg/p7KtjccrRene Cannon MD Work Phone: [facility] CenterHiqwqlutpb83-36-7072 10:44-0400Body hdiadq41.77 kgRene Cannon MD Work Phone: [facility] CenterTteszqwurj32-22-5004 10:44-0400Diastolic blood agalfanq11 mm[Hg]Rene Cannon MD Work Phone: [facility] CenterInwtgxocsl62-82-3356 10:44-0400Heart rate76 /min Rene Cannon MD Work Phone: [facility] CenterIxtpwpqqtv51-24-7019 10:44-6219TkJ4% (BldA) [Mass fraction]99 %Rene Cannon MD Work Phone: [facility] CenterEhwaehrclc65-52-7645 10:44-0400Systolic blood dsnvbezl893 mm[Hg]Rene Cannon MD Work Phone: [facility] CenterAqxbqbbpph45-16-9442 08:47-0400Body nrdwef138.5 cmValex Leonard MD Work Phone: [facility]03-26-2025 08:47-0400Body mass index (BMI) [Ratio]25.3 kg/d7XyfnyRoselyn Leonard MD Work Phone: [facility]03-26-2025 08:47-0400Body temperature 97 [degF]Roselyn Leonard MD Work Phone: [facility]03-26-2025 08:47-0400Body fhaxig55.8 kgRoselyn Leonard MD Work Phone: [facility]03-26-2025 08:47-0400Diastolic blood euvdlaez85 mm[Hg]Roselyn Leonard MD Work Phone: [facility]03-26-2025 08:47-0400Heart disi833 /minRoselyn Leonard MD Work Phone: [place] [address]-26-2025 08:47-0400Respiratory rate 16 /minRoselyn Leonard MD Work Phone: [facility]03-26-2025 08:47-9793JiL9% (BldA) [Mass fraction]100 %Roselyn Leonard MD Work Phone: [facility]03-26-2025 08:47-0400Systolic blood pirygdfk983 mm[Hg]Roselyn Leonard MD Work Phone: [facility]03-14-2025 08:40-0400Body temperature 98.1 [degF][facility] Work Phone: [facility]03-14-2025 08:40-0400Diastolic blood ajdkgzsk13 mm[Hg][facility] Work Phone: [place] [address]-14-2025 08:40-0400Heart rate87 /min [facility] Work Phone: [place] [address]-14-2025 08:40-0400Respiratory rate 18 /min[facility]/[place] Work Phone: [place] [address]-14-2025 08:40-7915VwV4% (BldA) [Mass fraction]100 %[facility] Work Phone: [facility]03-14-2025 08:40-0400Systolic blood mm[Hg][facility] Work Phone: [facility]03-06-2025 16:16-0500Diastolic blood ajglmvoj90 mm[Hg]Rene Cannon MD Work Phone: 1(148)265-[address] [place], [place] 1566203-06-2025 16:16-0500 Heart rate80 /Jeremy Cannon MD Work Phone: 1(361)[address] [place], [place] 2626903-06-2025 16:16-0500 Respiratory rate18 /Jeremy Cannon MD Work Phone: 1(346)[address] [place], [place] 2626903-06-2025 16:16-0500 SaO2% (BldA) [Mass fraction]100 %Rene Cannon MD Work Phone: 1(398)[address] [place], [place] 2626903-06-2025 16:16-0500 Systolic blood rouhyhlk485 mm[Hg]Rene Cannon MD Work Phone: 1(491)[address] [place], [place] 2626903-06-2025 12:08-0500 Body hlklul656.26 cmEelizabeth Cannon MD Work Phone: 1(203)[address] [place], [place] 2626903-06-2025 12:08-0500 Body fwtjvypwban78.3 [degF]Reen Cannon MD Work Phone: 1(549)[address] [place], [place] 2626903-06-2025 12:08-0500 Body oahhqi16 kgRene Cannon MD Work Phone: 1(898)[address] [place], [place] 2626902-25-2025 09:32-0500 Diastolic blood rqwirbnp83 mm[Hg]Rene Cannon MD [facility]1868 09:32-0500Heart rate82 /min Rene Cannon MD Work Phone: [facility] CenterBvzntylbij22-40-1320 09:32-8653DsZ5% (BldA) [Mass fraction]97 %Rene Cannon MD Work Phone: [facility] CenterJfwajpdmks65-16-5004 09:32-0500Systolic blood zdlnqoon294 mm[Hg]Reen Cannon MD Work Phone: [facility] CenterRwxudhtevz76-92-1224 08:21-0500Body temperature 97.39 [degF][facility] Work Phone: [facility]02-21-2025 08:21-0500Diastolic blood dngybgve61 mm[Hg][facility] Work Phone: [facility]02-21-2025 08:21-0500Heart rate70 /min [facility] [place] Work Phone: [facility]02-21-2025 08:21-0500Respiratory rate 16 /minLab/[facility] [place] Work Phone: [facility]02-21-2025 08:21-5041TyE8% (BldA) [Mass fraction]99 %[facility] [place] Work Phone: [facility]02-21-2025 08:21-0500Systolic blood msfisruk221 mm[Hg][facility] [place] Work Phone: [facility]01-31-2025 08:11-0500Body temperature 98.1 [degF][facility] [place] Work Phone: [facility]01-31-2025 08:11-0500Diastolic blood dgsmpodl39 mm[Hg][facility] Work Phone: [facility]01-31-2025 08:11-0500Heart rate78 /min [facility] Work Phone: [facility]01-31-2025 08:11-0500Respiratory rate 18 /minLab/[place] Work Phone: [facility]01-31-2025 08:11-3239EoN8% (BldA) [Mass fraction]98 %[facility] Work Phone: [facility]01-31-2025 08:11-0500Systolic blood onavmpfz051 mm[Hg][facility] Work Phone: [facility]01-10-2025 08:16-0500Body temperature 97.3 [degF]Lab/[facility] Work Phone: [facility]01-10-2025 08:16-0500Diastolic blood lqazxflp79 mm[Hg][facility] Work Phone: [facility]01-10-2025 08:16-0500Heart rate68 /min Lab/[facility] Work Phone: [facility]01-10-2025 08:16-0500Respiratory rate 18 /[facility] Work Phone: [facility]01-10-2025 08:16-9556LgI4% (BldA) [Mass fraction]99 %Lab/[facility] Work Phone: [facility]01-10-2025 08:16-0500Systolic blood qxbwrusu621 mm[Hg]Lab/[facility] Work Phone: [facility]12-20-2024 13:22-0500Body mass index (BMI) [Ratio]25.55 kg/v8ZadsnRoselyn Leonard MD Work Phone: [facility]12-20-2024 13:22-0500Body temperature 97.7 [degF]Roselyn Leonard MD Work Phone: [facility]12-20-2024 13:22-0500Body rhogpx11.6 kgRoselyn Leonard MD Work Phone: [facility]12-20-2024 13:22-0500Diastolic blood wuimdqfg49 mm[Hg]Roselyn Leonard MD Work Phone: [facility]12-20-2024 13:22-0500Heart rate64 /min Roselyn Leonard MD Work Phone: [facility]12-20-2024 13:22-0500Respiratory rate 18 /minRoselyn Leonard MD Work Phone: [facility]12-20-2024 13:22-2514SiZ5% (BldA) [Mass fraction]99 %Roselyn Leonard MD Work Phone: [facility]12-20-2024 13:22-0500Systolic blood usdbhgyu069 mm[Hg]Roselyn Leonard MD Work Phone: [facility]11-14-2024 08:54-0500Body mass index (BMI) [Ratio]25.01 kg/u1EcbnhRoselyn Leonard MD Work Phone: [facility]11-14-2024 08:54-0500Body temperature 97.11 [degF]Roselyn Leonard MD Work Phone: [facility]11-14-2024 08:54-0500Body yssvug89.9 kgRoselyn Leonard MD Work Phone: [facility]11-14-2024 08:54-0500Diastolic blood dvsukqui54 mm[Hg]Roselyn Leonard MD Work Phone: [place] [address]-14-2024 08:54-0500Heart rate79 /min Roselyn Leonard MD Work Phone: [place] [address]-14-2024 08:54-0500Respiratory rate 18 /minRoselyn Leonard MD Work Phone: [place] [address]-14-2024 08:54-7494AqK1% (BldA) [Mass fraction]100 %Roselyn Leonard MD Work Phone: [place] [address]-14-2024 08:54-0500Systolic blood wvybmfan506 mm[Hg]Roselyn Leonard MD Work Phone: [facility]10-24-2024 09:06-0400Body temperature 98.01 [degF]Lab/[facility] Work Phone: [facility]10-24-2024 09:06-0400Diastolic blood cxiybujs17 mm[Hg]Lab/[facility] Work Phone: [facility]10-24-2024 09:06-0400Heart rate77 /min Lab/[facility] Work Phone: [facility]10-24-2024 09:06-0400Respiratory rate 18 /[facility]: 1(574)448-73[facility]10-24-2024 09:06-3506XwW7% (BldA) [Mass fraction]99 %Lab/[facility] Work Phone: [facility]10-24-2024 09:06-0400Systolic blood dbuvofbm562 mm[Hg]Lab/[facility] Work Phone: [facility]10-10-2024 15:08-0400Body gbotxo390.5 Deven Leonard MD Work Phone: [facility]10-10-2024 15:08-0400Respiratory rate 16 /minRoselyn Leonard MD Work Phone: [facility]09-26-2024 08:33-0400Body psspyu729.5 Deven Leonard MD Work Phone: [facility]09-26-2024 08:33-0400Body mass index (BMI) [Ratio]24.75 kg/w3KuhrjRoselyn Leonard MD Work Phone: [facility]09-26-2024 08:33-0400Body temperature 97.3 [degF]Roselyn Leonard MD Work Phone: [facility]09-26-2024 08:33-0400Body .11 kgRoselyn Leonard MD Work Phone: [facility]09-26-2024 08:33-0400Diastolic blood ibqatxmm98 mm[Hg]Roselyn Leonard MD Work Phone: [facility]09-26-2024 08:33-0400Heart rate78 /min Roselyn Leonard MD Work Phone: [facility]09-26-2024 08:33-0400Respiratory rate 18 /minRoselyn Leonard MD Work Phone: [facility]09-26-2024 08:33-5056XaB3% (BldA) [Mass fraction]100 %Roselyn Leonard MD Work Phone: [facility]09-26-2024 08:33-0400Systolic blood avxtpufp839 mm[Hg]Roselyn Leonard MD Work Phone: [facility]09-03-2024 09:29-0400Body fzwnwu673.5 cmEelizabeth Cannon MD Work Phone: [facility] CenterHpnshmthbj14-67-4194 09:29-0400Body mass index (BMI) [Ratio]24.6 kg/i9MscopyRene Cannon MD Work Phone: [facility] CenterYsbmnkqpjp73-46-2277 09:29-0400Body qywfzj88.66 kgRene Cannon MD Work Phone: [facility] CenterWilkeuciqw51-34-8543 09:29-0400Diastolic blood uwxaubae12 mm[Hg]Rene Cannon MD Work Phone: [place] [address]Lmsjywfnkr69-89-5542 09:29-0400Heart rate86 /min Rene Cannon MD Work Phone: [phone] [address]Nxiwsdbkdq18-03-1653 09:29-8192ZdP7% (BldA) [Mass fraction]97 %Rene Cannon MD Work Phone: [facility] CenterZwwaezshjw35-45-1805 09:29-0400Systolic blood hicwdegp639 mm[Hg]Rene Cannon MD Work Phone: [facility] CenterBgwbcweeoz55-72-1301 08:29-0400Body temperature 97.9 [degF][facility] Work Phone: 1(554)754-16[facility]08-28-2024 08:29-0400Diastolic blood gszrvotj71 mm[Hg]Lab/[facility] Work Phone: 1(269)302-13[facility]08-28-2024 08:29-0400Heart rate63 /min Lab/[facility] Work Phone: 1(506)697-[address] [place] [address]-28-2024 08:29-0400Respiratory rate 18 /[facility] Work Phone: 1(473)983-97[facility]08-28-2024 08:29-7157AyA7% (BldA) [Mass fraction]99 %Lab/[facility] Work Phone: 1(312)586-79[facility]08-28-2024 08:29-0400Systolic blood ambsbgcu627 mm[Hg]Lab/[facility] Work Phone: [facility]07-31-2024 10:59-0400Body fwitid964.5 Deven Leonard MD Work Phone: [facility]07-31-2024 10:59-0400Body mass index (BMI) [Ratio]25.17 kg/y7HnlsjRoselyn Leonard MD Work Phone: [facility]07-31-2024 10:59-0400Body temperature 97.7 [degF]Roselyn Leonard MD Work Phone: [facility]07-31-2024 10:59-0400Body .4 kgRoselyn Leonard MD Work Phone: [facility]07-31-2024 10:59-0400Diastolic blood grjiiwfr76 mm[Hg]Roselyn Leonard MD Work Phone: [facility]07-31-2024 10:59-0400Heart gxns051 /minRoselyn Leonard MD Work Phone: [facility]07-31-2024 10:59-0400Respiratory rate 16 /minRoselyn Leonard MD Work Phone: [facility]07-31-2024 10:59-7211QeR7% (BldA) [Mass fraction]99 %Roselyn Leonard MD Work Phone: [facility]07-31-2024 10:59-0400Systolic blood jkupgzzd923 mm[Hg]Roselyn Leonard MD Work Phone: [facility]07-02-2024 09:51-0400Body pvolpu478.5 cmMindy Britney PA-C Work Phone: [facility]07-02-2024 09:51-0400Body mass index (BMI) [Ratio]24.46 kg/s5Jqffp Britney PA-C Work Phone: [facility]07-02-2024 09:51-0400Body temperature 97.39 [degF]Joy Britney PA-C Work Phone: [facility]07-02-2024 09:51-0400Body luxwvy76.2 kgMindy Britney PA-C Work Phone: [facility]07-02-2024 09:51-0400Diastolic blood hserlvxu50 mm[Hg]Joy Britney PA-C Work Phone: [facility]07-02-2024 09:51-0400Heart rate73 /min Joy Britney PA-C Work Phone: [facility]07-02-2024 09:51-0400Respiratory rate 16 /minMindy Britney PA-C Work Phone: [facility]07-02-2024 09:51-9794YlQ4% (BldA) [Mass fraction]100 %Joy Britney PA-C Work Phone: [facility]07-02-2024 09:51-0400Systolic blood rvdpfvau205 mm[Hg]Joy Tan PA-C Work Phone: [facility]06-05-2024 09:26-0400Body vefold738.5 Deven Leonard MD Work Phone: [facility]06-05-2024 09:26-0400Body mass index (BMI) [Ratio]24.94 kg/g1TygqbRoselyn Leonard MD Work Phone: [facility]06-05-2024 09:26-0400Body temperature 97.59 [degF]Roselyn Leonard MD Work Phone: [facility]06-05-2024 09:26-0400Body .7 kgRoselyn Leonard MD Work Phone: [facility]06-05-2024 09:26-0400Diastolic blood gsemkawr41 mm[Hg]Roselyn Leonard MD Work Phone: [facility]06-05-2024 09:26-0400Heart rate58 /min Roselyn Leonard MD Work Phone: [facility]06-05-2024 09:26-0400Respiratory rate 16 /minRoselyn Leonard MD Work Phone: [facility]06-05-2024 09:26-2340CtC3% (BldA) [Mass fraction]100 %Roselyn Leonard MD Work Phone: [facility]06-05-2024 09:26-0400Systolic blood grljauzp286 mm[Hg]Roselyn Leonard MD Work Phone: [facility]05-08-2024 09:41-0400Body temperature 98.01 [degF][facility] [place] Work Phone: [facility]05-08-2024 09:41-0400Diastolic blood mm[Hg][facility] [place] Work Phone: [facility]05-08-2024 09:41-0400Heart rate60 /min Lab/[facility] Work Phone: [facility]05-08-2024 09:41-0400Respiratory rate 18 /[facility] Work Phone: [facility]05-08-2024 09:41-7101TgQ7% (BldA) [Mass fraction]99 %Lab/[facility] Work Phone: [facility]05-08-2024 09:41-0400Systolic blood hnfrbnat626 mm[Hg][facility] Work Phone: [facility]04-10-2024 15:19-0400Body klnedi043.5 cmValex Leonard MD Work Phone: [facility]04-10-2024 15:19-0400Body temperature 97.2 [degF]Roselyn Leonard MD Work Phone: [facility]04-10-2024 15:19-0400Body lffqce15.9 kgRoselyn Leonard MD Work Phone: [facility]04-10-2024 15:19-0400Diastolic blood bkqevobu57 mm[Hg]Roselyn Leonard MD Work Phone: [facility]04-10-2024 15:19-0400Heart rate86 /min Roselyn Leonard MD Work Phone: [place] [address]-10-2024 15:19-0400Respiratory rate 16 /minRoselyn Leonard MD Work Phone: [place] [address]-10-2024 15:19-2236DjX0% (BldA) [Mass fraction]99 %Roselyn Leonard MD Work Phone: [place] [address]-10-2024 15:19-0400Systolic blood bnoeivpu268 mm[Hg]Roselyn Leonard MD Work Phone: [facility]03-25-2024 10:21-0400Body cuymzq693.5 cmSmitul De León MD Work Phone: [place] [address]-25-2024 10:21-0400Body temperature 98.01 [degF]Cleveland De León MD Work Phone: [place] [address]-25-2024 10:21-0400Body oorvsb45.13 kgCleveland De León MD Work Phone: [place] [address]-25-2024 10:21-0400Diastolic blood txnfhpbu45 mm[Hg]Cleveland De León MD Work Phone: [place] [address]-25-2024 10:21-0400Heart rate72 /min Cleveland De León MD Work Phone: [facility]03-25-2024 10:21-6434CbR7% (BldA) [Mass fraction]100 %Cleveland De León MD Work Phone: [facility]03-25-2024 10:21-0400Systolic blood kjgogfqv621 mm[Hg]Cleveland De León MD Work Phone: [facility]02-19-2024 10:59-0500Body ucmhjr018.5 cmPacc 2 Work Phone: [facility]02-19-2024 10:59-0500Body temperature 98.49 [degF]Pacc 2 Work Phone: [place] [address]-19-2024 10:59-0500Body mkcacy41.8 kgPacc 2 Work Phone: [place] [address]-19-2024 10:59-0500Diastolic blood qqsnsube57 mm[Hg]Pacc 2 Work Phone: [place] [address]-19-2024 10:59-0500Heart rate77 /min Pacc 2 Work Phone: [facility]02-19-2024 10:59-3770JwL8% (BldA) [Mass fraction]100 %Pacc 2 Work Phone: [facility]02-19-2024 10:59-0500Systolic blood mm[Hg]Pacc 2 Work Phone: [facility]02-16-2024 11:33-0500Body temperature 98.1 [degF]MD Rene Cannon Work Phone: 1(559)198-[address] [place], [place] 1566202-16-2024 11:33-0500 Diastolic blood edbpjpjv77 mm[Hg]MD Rene Cannon Work Phone: 1(113)[address]02-16-2024 11:33-0500 Heart rate65 /minMD Rene Cannon Work Phone: 1(067)[address]02-16-2024 11:33-0500 Respiratory rate20 /minMD Rene Cannon Work Phone: 1(561)799-[address] [place], [place] 1566202-16-2024 11:33-0500 SaO2% (BldA) [Mass fraction]99 %MD Rene Cannon Work Phone: 1(736)840-[address] [place], [place] 1566202-16-2024 11:33-0500 Systolic blood cjwzqfof264 mm[Hg]MD Rene Cannon Work Phone: 1(572)616-[address] [place], [place] 1566202-16-2024 05:28-0500 Body ddacdx15.8 kgMD Rene Cannon Work Phone: 1(059)168-[address] [place], [place] 1566202-15-2024 12:16-0500 Body lzumre692.26 cmMD Rene Cannon Work Phone: 1(036)155-[address] [place], [place] 1566202-12-2024 22:22-0500 Diastolic blood mm[Hg]MD Rene Cannon Work Phone: 1(612)065-[address] [place], [place] 1566202-12-2024 22:22-0500 Heart rate65 /minMD Rene Cannon Work Phone: [facility]02-12-2024 22:22-0500 Respiratory rate18 /minMD Rene Cannon Work Phone: [facility]02-12-2024 22:22-0500 SaO2% (BldA) [Mass fraction]98 %MD Rene Cannon Work Phone: [facility]02-12-2024 22:22-0500 Systolic blood iqhwfrzx63 mm[Hg]MD Rene Cannon Work Phone: [facility]02-12-2024 13:36-0500 Body llbcix444.26 cmAK Rene Hendersonsb Work Phone: 1(666)004-[address] [place], [place] 1566202-12-2024 13:36-0500 Body vlaexyqznep89.2 [degF]MD Rene Cannon Work Phone: [facility]02-12-2024 13:36-0500 Body uwyiup81 kgMD Destineemickey Hendersonsb Work Phone: [facility]02-08-2024 14:14-0500 Body hfjbit093.5 cmSmitul De León MD Work Phone: [facility]02-08-2024 14:14-0500Body temperature 97.7 [degF]Cleveland De León MD Work Phone: [facility]02-08-2024 14:14-0500Body ufipue72.04 kgCleveland De León MD Work Phone: [facility]02-08-2024 14:14-0500Diastolic blood zegjtddh18 mm[Hg]Cleveland De León MD Work Phone: [facility]02-08-2024 14:14-0500Heart rate76 /min Cleveland De León MD Work Phone: [facility]02-08-2024 14:14-0500Respiratory rate 16 /minSmitul De León MD Work Phone: [facility]02-08-2024 14:14-0500Systolic blood glxjcnve534 mm[Hg]Cleveland De León MD Work Phone: [facility]12-14-2023 13:50-0500Body oakcsx31.5 kgCleveland De León MD Work Phone: [facility]12-14-2023 13:50-0500Diastolic blood qfqijufc30 mm[Hg]Cleveland De León MD Work Phone: [facility]12-14-2023 13:50-0500Heart rdhb369 /minSmitul De León MD Work Phone: [facility]12-14-2023 13:50-0500Systolic blood mm[Hg]Cleveland De León MD Work Phone: [facility]12-02-2023 15:20-0500Body temperature 97.7 [degF]MD Rene Cannon Work Phone: [facility]12-02-2023 15:20-0500 Diastolic blood nltvwpyl28 mm[Hg]MD Rene Cannon Work Phone: [facility]12-02-2023 15:20-0500 Heart rate58 /minMD Rene Cannon Work Phone: [facility]12-02-2023 15:20-0500 Respiratory rate18 /minMD Rene Cannon Work Phone: [facility]12-02-2023 15:20-0500 SaO2% (BldA) [Mass fraction]97 %MD Rene Cannon Work Phone: [facility]12-02-2023 15:20-0500 Systolic blood nugkhyoi016 mm[Hg]MD Rene Cannon Work Phone: [facility]12-02-2023 03:59-0500 Body eyxpao31.9 kgMD Rene Cannon Work Phone: 1(719)[address] [place], [place] 2626912-01-2023 14:39-0500 Body upcyze912.26 cmMD Rene Cannon Work Phone: 1(788)[address] [place], [place] 2626911-30-2023 18:07-0500 Diastolic blood sphsurhc22 mm[Hg]MD Rene Cannon Work Phone: 1(534)[address] [place], [place] 2626911-30-2023 18:07-0500 Heart rate58 /minMD Rene Cannon Work Phone: 1(320)[address] [place], [place] 2626911-30-2023 18:07-0500 Respiratory rate18 /minMD Rene Cannon Work Phone: 1(654)[address] [place], [place] 2626911-30-2023 18:07-0500 SaO2% (BldA) [Mass fraction]100 %MD Rene Cannon Work Phone: 1(606)[address] [place], [place] 2626911-30-2023 18:07-0500 Systolic blood mm[Hg]MD Rene Cannon Work Phone: 1(710)[address] [place], [place] 2626911-30-2023 12:15-0500 Body mcnjko834.26 cmMD Rene Cannon Work Phone: 1(389)[address] [place], [place] 2626911-30-2023 12:15-0500 Body ockxdsiutwl49.6 [degF]MD Rene Cannon Work Phone: 1(057)[address] [place], [place] 2626911-30-2023 12:15-0500 Body aqeomw25.5 kgMD Destineemickey Davis Work Phone: 1(432)[address] [place], [place] 2626907-01-2023 11:30-0400 Body hjbneo229.53 Anni Castellanos Other [facility] Other [id number] 11:30-0400Body mass index (BMI) [Ratio] 25.79 kg/a4PufkwChantal Castellanos Other [facility] Other 07-01-2023 11:30-0400Body lfgovzzxeao56.9 [degF]Chantal Castellanos Other [facility] Other 07-01-2023 11:30-0400Body ipmsgu67.38 kgPeggy Castellanos Other [facility] Other 07-01-2023 11:30-0400Respiratory rate18 /minPeggy [facility]ellanos Other [facility] Other 07-01-2023 11:30-6073QzG8% (BldA) [Mass fraction]96 % Chantalniko Castellanos Other [employer] Other 06-15-2023 11:36-0400Body evefbw486.53 cmEdmickey Hendersonsb Work Phone: [phone]-Amkkc [place] [employer] [address] DO Work Phone: 1(602) 959-410906-15-2023 11:36-0400Body mass index (BMI) [Ratio] 25.62 kg/v1YrouyyRene Cannon Work Phone: 1(498) [phone]-Cucxi [place] [employer] [address] DO Work Phone: 1(710) 233-194806-15-2023 11:36-0400Body surface area Derived from formula1.97 s7AkmvwtRene Cannon Work Phone: mp466-7839PC-Osodj [place] [employer] [address] DO Work Phone: 1(162) 216-479706-15-2023 11:36-0400Body ueccsh82.83 kgRene Cannon Work Phone: mp912-9073FR-Wbvwu [place] [facility] DO Work Phone: 1(789) 206-431306-15-2023 11:36-0400Diastolic blood mm[Hg] Rene Cannon Work Phone: mp474-1173YQ-Bgqko [facility] DO Work Phone: 1(711) 588-705606-15-2023 11:36-0400Heart rate66 /minEdmickey Hendersonsb Work Phone: 1(121) 133-6376198-0822YH-Tzibj [facility] DO Work Phone: 1(608) 289-636806-15-2023 11:36-0400Systolic blood vwnugsuk696 mm[Hg] Rene Cannon Work Phone: 1(895) 519-4564507-7895VN-Yfqep [facility] DO Work Phone: 1(342) 854-608905-26-2023 13:05-0400Diastolic blood oepymtyi03 mm[Hg] MD Rene Cannon Work Phone: 1(806)[address] [place], [place] 2626905-26-2023 13:05-0400 Heart rate60 /minMD Rene Cannon Work Phone: 1(246)[address] [place], [place] 2626905-26-2023 13:05-0400 Respiratory rate16 /minMD Rene Canonn Work Phone: 1(964)[address] [place], [place] 2626905-26-2023 13:05-0400 SaO2% (BldA) [Mass fraction]97 %MD Rene Cannon Work Phone: 1(713)[address] [place], [place] 2626905-26-2023 13:05-0400 Systolic blood mm[Hg]MD Rene Cannon Work Phone: 1(062)760-[address] [place], [place] 1566205-26-2023 07:26-0400 Body optuly180.8 cmMD Rene Cannon Work Phone: 1(559)[address] [place], [place] 2626905-26-2023 07:26-0400 Body ymlfcsfnhyl22.1 [degF]MD Rene Cannon Work Phone: 1(972)[address] [place], [place] 2626905-26-2023 07:26-0400 Body sewtkz65 kgMD Rene Cannon Work Phone: 1(629)[address] [place], [place] 2626905-18-2023 09:10-0400 Diastolic blood fohjgwhi48 mm[Hg]Rene Hendersonsb Work Phone: 1(911) 752-5852141-9123GG-Huead [facility] DO Work Phone: 1(247) 440-991505-18-2023 09:10-0400Systolic blood xhglqreb605 mm[Hg] Rene Cannon Work Phone: 1(732) 939-5598922-2887ZP-Enzbj [facility] DO Work Phone: 1(929) 265-352505-18-2023 09:09-0400Body acwxhe378.53 cmEelizabeth Hendersonsb Work Phone: 1(531) 339-6321197-2864WJ-Xumlg [facility] 250 DO Work Phone: 1(102) 605-285905-18-2023 09:09-0400Body mass index (BMI) [Ratio] 26.49 kg/f0JbybntRene Cannon Work Phone: 1(490) 844-7593577-6613JZ-Phrpl [facility] 250 DO Work Phone: 1(358) 789-854005-18-2023 09:09-0400Body surface area Derived from formula1.99 b0DzeonnRene Cannon Work Phone: 1(546) 799-8898187-6975BO-Fcakw [facility] 250 DO Work Phone: 1(151) 525-740605-18-2023 09:09-0400Body kmoziu60.56 kgRene Hendersonsb Work Phone: 1(363) 217-3811560-4963EW-Useuv [facility] 250 DO Work Phone: 1(167) 739-767705-18-2023 09:09-0400Diastolic blood ofzogmkf23 mm[Hg] Rene Cannon Work Phone: 1(176) 280-4641983-0174UN-Yomvj [facility] DO Work Phone: 1(491) 883-926305-18-2023 09:09-0400Heart rate70 /minEelizabeth Cannon Work Phone: 1(652) 411-4360657-6323VD-Lrlpt [facility] [address] DO Work Phone: 1(645) 919-567805-18-2023 09:09-0400Systolic blood qzzugwtb946 mm[Hg] Rene Cannon Work Phone: 1(804) 503-2419946-1543IV-Hcihk [facility] DO Work Phone: 1(162) 235-358603-30-2022 14:30-0400Body .53 cmDatrina Elpidio Other [employer] Other 03-30-2022 14:30-0400Body mass index (BMI) [Ratio] 27.36 kg/p1Vhlpp Elpidio Other [employer] Other 03-30-2022 14:30-0400Body golenc34.28 kgDavimarkell Magallanes Other [employer] Other 03-30-2022 14:30-0400Diastolic blood vxmpugnc93 mm[Hg] Deborah Magallanes Other [employer] Other 03-30-2022 14:30-0400Systolic blood wyiisxhq029 mm[Hg] Deborah Elpidio Other [employer] Other Encounters Encounter DateEncounter TypeCare ProviderFacilityStart: 06-29-2025 End: [id number] ABHYANKARFacility:[facility]: 06-08[facility]2025 End: 06-76-0052ghepftemjqAZPGE ABHYANKARFacility:[facility]: 44-50-4418fwdrnmwtwyVXHTJK ROODFacility:[facility]: 05-12-2025 End: 21-05-1351Phpjvzywd Result EncounterGeneric External Data ProviderNOMS External Department UnsolicitedStart: 05-12-2025 End: 88-73-3895Puxpabnen Result EncounterGeneric External Data ProviderNOMS External Department UnsolicitedStart: 05-12-2025 End: 64-55-2833ifsasfipurOXILF ABHYANKARFacility:[facility]art: 04-21-2025 End: 93-19-1186Egobfwyqi Result EncounterGeneric External Data ProviderNOMS External Department UnsolicitedStart: 04-21-2025 End: 36-37-8696Mqidqpchb Result EncounterGeneric External Data ProviderNOMS External Department UnsolicitedStart: 04-21-2025 End: 64-83-0005Qefgqztei encounterRahat Adair [employer] Work Phone: Cancer Appts MCComment on above:Nm Pet Request (Neuroendocrine whole body pet scan week of 05-23-25. 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); Malignant carcinoid tumor of ileum (HCC); Functional diarrhea; Malignant neoplasm of other parts of pancreas (HCC); Gastric varices; Gastrointestinal hemorrhage, unspecified gastrointestinal hemorrhage type; Encounter for antineoplastic chemotherapy and immunotherapyStart: 04-21-2025 End: 73-17-8790vetztwjphiOll/[place] Work Phone: Hematology/OncologyComment on above: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)Start: 04-13-2025 End: 03-12-9708Dfbuqx Frida Cannon MD Work Phone: [facility] Family MedicineStart: 04-13-2025 End: 42-08-8896Dfwbhzmelania Cannon MD Work Phone: [facility] Family MedicineStart: 04-13-2025 End: 67-74-2653Spchwn outpatient visit 15 minutesRene Cannon MD Work Phone: [facility] Family MedicineComment on above:Benign essential hypertension ; Hypertensive nephropathy ; Stage 3a chronic kidney disease (CMS-HCC); Microalbuminuria; Mixed hyperlipidemia ; Alcoholism (HCC); OverweightStart: 04-13-2025 End: 30-22-4560nrnzkmrqsvNLLFQD J HEMEYERNot AvailableStart: 03-31-2025 End: 02-28-7327Eowujnvxw Result EncounterGeneric External Data ProviderNOMS External Department UnsolicitedStart: 03-31-2025 End: 88-23-9921Fmaxlfmxy Result EncounterGeneric External Data ProviderNOMS External Department UnsolicitedStart: 03-31-2025 End: 33-92-5515aamfgstdkoESTDZ ABHYANKARFacility:[facility]ertart: 03-30-2025 End: 73-95-2940ryvijiafzxGyqnsttg ZahlerFacility:[facility]ENTERtart: 03-30-2025 End: 41-90-8132Ybcgjs flowsheetChapin Arboledaer DO Work Phone: [facility] EyeStart: 03-30-2025 End: 86-24-9851Jtjwpk flowsheetChapin Bayhler DO Work Phone: [facility] EyeStart: 03-30-2025 End: 39-58-9934Kpuahqaxf Result EncounterJonatlynette Bayhler DO Work Phone: [facility] External Department UnsolicitedStart: 03-30-2025 End: 88-12-4471jfpstzzicxLZPFNEHB D ZAHLERNot AvailableStart: 03-10-2025 End: 53-07-2135Fcfekfcga Result EncounterGeneric External Data ProviderNOMS External Department UnsolicitedStart: 03-10-2025 End: 82-83-7362Arqwwrgko Result EncounterGeneric External Data ProviderNOWY External Department UnsolicitedStart: 03-10-2025 End: 19-72-4999Yywkwv outpatient visit 40 minutesRoselyn Leonard MD Work Phone: Hematology/OncologyComment on above: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); Malignant carcinoid tumor of ileum (HCC); Iron deficiency anemia due to chronic blood loss; Gastrointestinal hemorrhage, unspecified gastrointestinal hemorrhage type; Malignant neoplasm of other parts of pancreas (HCC); Gastritis, presence of bleeding unspecified, unspecified chronicity, unspecified gastritis type; Gastric varices; Retroperitoneal lymphadenopathy; Functional diarrhea; Encounter for antineoplastic chemotherapy and immunotherapy; Personal history of other malignant neoplasm of small intestineStart: 03-10-2025 End: 61-66-9846ymgomxxixvPfa/[place] Work Phone: Hematology/OncologyComment on above: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)Start: 03-09-2025 End: 41-95-2951Jdurrbocs Result EncounterGeneric External Data ProviderNOMS External Department UnsolicitedStart: 03-09-2025 End: 10-51-7937Askjdmxce Result EncounterGeneric External Data ProviderNOMS External Department UnsolicitedStart: 80-19-3548nxxkxjdofhCLTWG ABHYANKAR Facility:[facility]art: 03-09-2025 End: 21-95-0150Idplxxfciy hospital visit by physicianPetinjMolecular Imaging Comment on above: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]Start: 02-25-2025 End: 55-63-0015Hhkxnxfheq and management of inpatientEDMICKEY CANNON Facility:[facility]art: 02-23-2025 End: 54-53-9729Tykrfyfsca and management of inpatientGLORIA BUSH [facility]: 02-23-2025 End: 62-36-3489Luxbizbvnt and management of inpatientDIADRIANA LYMAN [facility]art: 02-10-2025 End: 03-38-0615Sctqvyhiz Result EncounterGeneric External Data ProviderNOMS External Department UnsolicitedStart: 02-10-2025 End: 21-00-3879Lwhgfsukz Result EncounterGeneric External Data ProviderNOMS External Department UnsolicitedStart: 02-10-2025 End: 71-45-1728mkuwlcrwsiBjr/[place] Work Phone: Hematology/OncologyComment on above: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)Start: 02-07-2025 End: 38-42-3420Sivfyhwxj Amol Leonard MD Work Phone: Cancer Appts MCComment on above:Nm Pet RequestStart: 01-20-2025 End: 86-74-2460Fnotltceh Result EncounterGeneric External Data ProviderNOMS External Department UnsolicitedStart: 01-20-2025 End: 05-27-6813Miivutmfk Result EncounterGeneric External Data ProviderNOMS External Department UnsolicitedStart: 01-20-2025 End: 47-64-9350Mmrnyua encounter Edy Singh APRN.CNP Work Phone: Hematology/OncologyStart: 01-20-2025 End: 02-27-1312bgbqbdihlsDfp/[place] Work Phone: Hematology/OncologyComment on above: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); Malignant carcinoid tumor of ileum (HCC)Start: 12-30-2024 End: 72-69-3038Gfubidvqz Result EncounterGeneric External Data ProviderNOMS External Department UnsolicitedStart: 12-30-2024 End: 93-49-9393Ctecmhvrw Result EncounterGeneric External Data ProviderNOMS External Department UnsolicitedStart: 12-30-2024 End: 82-42-0090nafwgknqfsIjt/[place] Work Phone: Hematology/OncologyComment on above: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)Start: 12-20-2024 End: 31-92-9081Tnctiyiuq Result EncounterGeneric External Data ProviderNOMS External Department UnsolicitedStart: 12-20-2024 End: 13-22-8037Xkcvejufx Result EncounterGeneric External Data ProviderNOMS External Department UnsolicitedStart: 12-20-2024 End: 35-81-8766dxdqguvnzvBASIW ABHYANKARFacility:[facility]ertart: 12-15-2024 End: 89-88-7424kzwivsidcaWZZTTGMassiel Mcginniscility:[facility] Start: 12-13-2024 End: 72-99-2600NbbfaqYanci Mistry [facility] Work Phone: [facility] HB-3Comment on above:Iron deficiency anemia, unspecified iron deficiency anemia type (Primary Dx)IV ironStart: 12-09-2024 End: 44-85-2870Ljgfcbdhh Result EncounterGeneric External Data ProviderNOMS External Department UnsolicitedStart: 12-09-2024 End: 48-29-7851Xcqdazlkx Result EncounterGeneric External Data ProviderNOMS External Department UnsolicitedStart: 12-09-2024 End: 27-86-0262Rwtwqf outpatient visit 40 minutesRoselyn Loenard MD Work Phone: Hematology/OncologyComment on above: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); 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); Lung mass; Bone lesion; Iron deficiency anemia due to chronic blood lossStart: 12-09-2024 End: 00-98-1098ngjttkunqlBgf/[place] Work Phone: Hematology/OncologyComment on above: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)Start: 12-08-2024 End: 93-18-0635Metpitudo Result EncounterGeneric External Data ProviderNOMS External Department UnsolicitedStart: 12-08-2024 End: 90-06-4601Byjajvwld Result EncounterGeneric External Data ProviderNOMS External Department UnsolicitedStart: 12-08-2024 End: 30-40-9334rdwikhqrnwLHRBM ABHYANKARFacility:[facility]ertart: 12-08-2024 End: 82-24-2238Eerphnwjkb hospital visit by physicianPetct4 Work Phone: Molecular ImagingComment on above: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 FM 100Comment on above:Welcome to Medicare preventive visit (Primary Dx); Advance directive in chart; Encounter for screening for other disorder; Screening for alcohol problem; Benign essential hypertension (CMS/HCC); Hypertensive ventricular hypertrophy without heart failure (CMS/HCC); Hypertensive nephropathy (CMS/HCC); Stage 3a chronic kidney disease (HCC) (CMS/HCC); Primary malignant neuroendocrine tumor of pancreas (CMS/HCC); Metastatic malignant neuroendocrine tumor to lymph node (CMS/HCC); Mixed hyperlipidemia (CMS/HCC); Alcoholism (CMS/HCC); Cardiovascular event riskStart: 11-23-2024 End: 94-77-9087Wytjrss encounter statusRene Cannon MD Work Phone: [facility] Work Phone: Start: 11-17-2024 End: 48-46-4821lhtwlwgaomGCJCM ABHYANKARFacility:[facility] HospitalStart: 11-17-2024 End: 66-65-2149Gnivcv outpatient visit 25 minutesRoselyn Leonard MD Work Phone: Hematology/OncologyComment on above:Anemia, unspecified type (Primary Dx); Malignant carcinoid tumor of ileum (HCC); 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)Start: 11-09-2024 End: 47-17-6939dhjegnrtfvHHETIX J HEMEYERNot AvailableStart: 11-05-2024 End: 75-24-7754ncdyqnulygXrt/[place] Work Phone: Hematology/OncologyComment on above: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)Start: 11-03-2024 End: 53-19-7170Hxglqoozq encounterRoselyn Leonard MD Work Phone: [phone] InstituteComment on above:Hospital Follow UpStart: 11-01-2024 End: 50-02-4075Ciinsxzhf encounterRoselyn Leonard MD Work Phone: Cancer Appts MCStart: 10-31-2024 End: 27-44-9079Aoadxaqerz and management of inpatientEDMICKEY LEBRON CANNON [facility]: 10-28-2024 End: 25-92-1367Tqrxqpsuh department patient visitEdmickey Cannon MD Work Phone: [facility] Work Phone: Start: 10-25-2024 End: 63-75-3738Elmmfkxid encounterLapavel Jon [facility] Work Phone: Hematology/OncologyComment on above:Medication Follow- up (PET scan question); Patient QuestionStart: 10-19-2024 End: 48-45-1915Ogtohc flowsheetRene Cannon MD Work Phone: [facility] CI FM 100Start: 10-19-2024 End: 75-68-7374Gdlbft flowsChanel Cannon MD Work Phone: [facility] CI FM 100Start: 10-19-2024 End: 64-72-1066Avoiec outpatient visit 25 minutesEdmickey Cannon MD Work Phone: [facility] CI FM 100Comment on above:Benign essential hypertension (CMS/HCC) (Primary Dx); Hypertensive nephropathy (CMS/HCC); Stage 3a chronic kidney disease (HCC) (CMS/HCC); Microalbuminuria; Mixed hyperlipidemia (CMS/HCC); Benign prostatic hyperplasia with weak urinary streamStart: 10-19-2024 End: 09-90-5346gqeivxxtuuEHQAVQ J HEMEYERNot AvailableStart: 10-15-2024 End: 08-09-1426Vquqlojqu Result EncounterGeneric External Data ProviderNOMS External Department UnsolicitedStart: 10-15-2024 End: 48-37-5515Vbiyqwpmz Result EncounterGeneric External Data ProviderNOMS External Department UnsolicitedStart: 10-15-2024 End: 47-33-2210fcofpxwdueThb/[place] Work Phone: Hematology/OncologyComment on above: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)Refill Request Start: 09-24-2024 End: 78-21-7172Xymahdjgo Result EncounterGeneric External Data ProviderNOMS External Department UnsolicitedStart: 09-24-2024 End: 24-28-7993Idhnftxfr Result EncounterGeneric External Data ProviderNOMS External Department UnsolicitedStart: 09-24-2024 End: 43-60-4515yywkzafswvYzs/[place] Work Phone: Hematology/OncologyComment on above: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)Start: 09-22-2024 End: 66-71-7606Kjbsqrkyj encounterLapavel [facility] Work Phone: [facility] HB-3Comment on above:Medication Authorization (Sandostatin LAR 20mg Pharmacy prior auth pending)Start: 09-21-2024 End: 11-22-0664YamzztPobwugb Morrow [facility] Work Phone: [facility] PharmacyComment on above: Erroneous encounter-disregardStart: 09-17-2024 End: 31-84-8812NzzfhsKwliu [facility] Work Phone: [facility] HB-3Comment on above:Refill Request (Sandostatin 20mg LAR must be whitebagged)Start: 09-03-2024 End: 06-73-5469Rkrunwvcs Result EncounterGeneric External Data ProviderNOMS External Department UnsolicitedStart: 09-03-2024 End: 38-46-4062Oxzyktnng Result EncounterGeneric External Data ProviderNOMS External Department UnsolicitedStart: 09-03-2024 End: 36-92-1479oaxeejiwflEuo/[place] Work Phone: Hematology/OncologyComment on above: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)Start: 08-13-2024 End: 45-73-6331Yesejrqdj Result EncounterGeneric External Data ProviderNOMS External Department UnsolicitedStart: 08-13-2024 End: 08-73-8002Ikhsyzhmd Result EncounterGeneric External Data ProviderNOMS External Department UnsolicitedStart: 08-13-2024 End: 32-40-0875Jhnsyr outpatient visit 40 minutesRoselyn Leonard MD Work Phone: Hematology/OncologyComment on above: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); 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); Lung massStart: 08-13-2024 End: 89-99-6010zlgufiiwtaTru/[place] Work Phone: Hematology/OncologyComment on above: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)Start: 08-11-2024 End: 52-18-2477Itetcpmgn encounterRethomas Butcher RN Work Phone: Hematology/OncologyComment on above:Care Coordination (Scan Results)Start: 08-03-2024 End: 88-21-5189Wiubdhvnw Result EncounterGeneric External Data ProviderNOMS External Department UnsolicitedStart: 08-03-2024 End: 52-92-3435Jsyonbksy Result EncounterGeneric External Data ProviderNOMS External Department UnsolicitedStart: 08-03-2024 End: 87-60-5197tvvvcxrzacTRHMM ABHYANKARFacility:[facility]ertart: 08-03-2024 End: 44-07-6821cofluepoevHWHYX ABHYANKARFacility:[facility]ertart: 08-03-2024 End: 61-56-7726Oxqdoknpbs hospital visit by physicianPetct4 Work Phone: Molecular ImagingComment on above: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) [C7B.8]Start: 07-08-2024 End: 73-31-3376Wgpiowbhu Result EncounterGeneric External Data ProviderNOMS External Department UnsolicitedStart: 07-08-2024 End: 18-12-6713Fiwfflety Result EncounterGeneric External Data ProviderNOMS External Department UnsolicitedStart: 07-08-2024 End: 16-53-9583Bizdmcaas encounterRoselyn Leonard MD Work Phone: Cancer Appts MCComment on above:Nm Pet RequestStart: 07-08-2024 End: 40-12-5337Khglrv outpatient visit 25 minutesRoselyn Leonard MD Work Phone: Hematology/OncologyComment on above: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); Lung massStart: 07-08-2024 End: 40-75-5891awjfzaluroFJOCO ABHYANKARFacility:[facility]ertart: 06-17-2024 End: 41-88-9610krdypaewkhOgy/[place] Work Phone: Hematology/OncologyComment on above: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)Start: 06-03-2024 End: 74-84-9673Hdepay outpatient visit 25 minutesRoselyn Leonard MD Work Phone: Hematology/OncologyComment on above: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); Lung mass; Soft tissue injuryStart: 06-03-2024 End: 11-31-2604Zqkfovzpv Result EncounterGeneric External Data ProviderNOMS External Department UnsolicitedStart: 06-03-2024 End: 57-59-9045Ittcywxqq Result EncounterGeneric External Data ProviderNOMS External Department UnsolicitedStart: 06-03-2024 End: 86-38-6384Bsdltrfyc encounterRoselyn Leonard MD Work Phone: Cancer Appts MCComment on above:ResultsStart: 06-03-2024 End: 30-50-2389Hjvqpbqgrh hospital visit by physicianArrival Time Radiology Work Phone: Radiology Pet CTComment on above: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]Start: 05-25-2024 End: 43-89-9435VlpgkiJclosw J Hemeyer MD Work Phone: [facility] CI FM 100Comment on above:Benign essential hypertension (CMS/HCC)Start: 05-20-2024 End: 10-89-9122ywciitcywcUwd/[place] Work Phone: Hematology/OncologyComment on above: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)Start: 05-20-2024 End: 75-53-7903Nubqyq outpatient visit 40 minutesRoselyn Leonard MD Work Phone: Hematology/OncologyComment on above: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); 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); Lung mass; Bone lesionStart: 05-13-2024 End: 84-66-1760Eyrsshsfq Result EncounterGeneric External Data ProviderNOMS External Department UnsolicitedStart: 05-13-2024 End: 67-91-6019Fsewmuuix Result EncounterGeneric External Data ProviderNOMS External Department UnsolicitedStart: 05-13-2024 End: 21-62-9700Yttwmuoczt hospital visit by physicianArrival Time Radiology Work Phone: Radiology Pet CTComment on above: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]Start: 04-27-2024 End: 84-21-3105Tnidlm flowsChanel Cannon MD Work Phone: [facility] CI FM 100Start: 04-27-2024 End: 30-77-2358Ajqcfw flowsChanel Cannon MD Work Phone: [facility] CI FM 100Start: 04-27-2024 End: 39-55-9103Gbeiwg outpatient visit 25 minutesRene Cannon MD Work Phone: [facility] CI FM 100Comment on above: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); Benign essential hypertension (CMS/HCC); Hypertensive nephropathy (CMS/HCC); Stage 2 chronic kidney disease; MicroalbuminuriaStart: 04-27-2024 End: 40-91-7902nwqmkfmxsiHNESZR Misa HEMEYERNot AvailableStart: 04-21-2024 End: 05-90-6391Mdnwkqasf Result EncounterGeneric External Data ProviderNOMS External Department UnsolicitedStart: 04-21-2024 End: 53-39-7149Saexfulfh Result EncounterGeneric External Data ProviderNOMS External Department UnsolicitedStart: 04-21-2024 End: 59-59-7215xtisevnogsCtg/[place] Work Phone: Hematology/OncologyComment on above: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)Start: 03-24-2024 End: 90-25-7780ppeizkacpcXsp/[place] Work Phone: Hematology/OncologyComment on above: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)Start: 03-24-2024 End: 12-66-0294Ruxtcl outpatient visit 25 minutesRoselyn Leonard MD Work Phone: Hematology/OncologyComment on above: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); 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); Malignant neoplasm of pancreas, unspecified location of malignancy (HCC); Anemia, unspecified typeStart: 02-24-2024 End: 58-81-7238sevawnylouJpi/[place] Work Phone: Hematology/OncologyComment on above: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)Start: 02-24-2024 End: 35-25-0722Jyqjfj outpatient visit 15 minutesJoy Tan PA-C Work Phone: Hematology/OncologyComment on above: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)Start: 90-11-4036Iauahhttr encounter Roselyn Leonard MD Work Phone: Hematology/OncologyComment on above:Lab OrdersStart: 02-18-2024 End: 38-49-6683Fijjhwowt Result EncounterGeneric External Data ProviderNOMS External Department UnsolicitedStart: 02-18-2024 End: 25-05-6976Ptaablzrh Result EncounterGeneric External Data ProviderNOMS External Department UnsolicitedStart: 67-15-7457Nqqpaujog encounterJessy Butcher RN Work Phone: Hematology/OncologyComment on above:Care Coordination (Scan Results)Start: 02-18-2024 End: 88-80-8237Dvxpkpfryg hospital visit by physicianArrival Time Radiology Work Phone: Radiology Pet CTComment on above: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]Start: 59-61-2005Petdmuvck encounterNatbetito Muniz RNHematology/OncologyComment on above:OrdersStart: 01-28-2024 End: 50-06-2828qozeecuxacCml/[place] Work Phone: Hematology/OncologyComment on above: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)Start: 01-28-2024 End: 88-94-0616Krhbsq outpatient visit 25 minutesRoselyn Leonard MD Work Phone: Hematology/OncologyComment on above: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)Start: 30-37-7377Bjbbhaayr encounter Roselyn Leonard MD Work Phone: Hematology/OncologyComment on above:Lab OrdersStart: 12-31-2023 End: 54-69-6857gffeyirzpmQvg/[place] Work Phone: Hematology/OncologyComment on above: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)Start: 12-24-2023 Telephone encounterNia Muniz RNHematology/OncologyComment on above:Return To Work LetterStart: 49-49-3655Rvxaphigq encounterRoselyn Leonard MD Work Phone: Hematology/OncologyComment on above:Disability Alf Start: 12-03-2023 End: 10-21-9281zsrnpooynnWkk/[place] Work Phone: Hematology/OncologyComment on above: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)Start: 12-03-2023 End: 18-66-0308Pbcyro outpatient new 60 minutesRoselyn Leonard MD Work Phone: Hematology/OncologyComment on above:Anemia, unspecified type (Primary Dx)Start: 38-15-4934Zcfndeoru encounterRethomas Butcher RN Work Phone: Hematology/OncologyComment on above:Care Coordination (New Patient)Start: 89-34-2273Qgkhvossd encounterSamer Violetta De León MD Work Phone: [facility] SurgeryStart: 11-17-2023 End: 95-12-6714Ovnhxdx encounter procedureSamer Violetta De León MD Work Phone: General SurgeryComment on above:Primary malignant neuroendocrine tumor of ileum (HCC) (Primary Dx); Encounter for attention to gastrostomy (HCC); Malnutrition of moderate degree (HCC)Start: 11-03-2023 End: 50-67-0866Kboukinxv Result EncounterGeneric External Data ProviderNOMS External Department UnsolicitedStart: 11-03-2023 End: 89-51-7244Ktheefpwk Result EncounterGeneric External Data ProviderNOMS External Department UnsolicitedStart: 11-02-2023 End: 69-06-3329Trqruqohq Result EncounterGeneric External Data ProviderNOMS External Department UnsolicitedStart: 11-02-2023 End: 71-76-6989Ilnczkncc Result EncounterGeneric External Data ProviderNOMS External Department UnsolicitedStart: 11-01-2023 End: 60-73-5071Omnewdykv Result EncounterGeneric External Data ProviderNOMS External Department UnsolicitedStart: 11-01-2023 End: 28-38-4671Fdpuhgcuu Result EncounterGeneric External Data ProviderNOMS External Department UnsolicitedStart: 62-95-5276Trrouucez encounterSamer Violetta De León MD Work Phone: General SurgeryComment on above:FMLA PaperworkStart: 84-85-6172Ycsnxiuag encounterMichael Cresencio [employer] Work Phone: pre AnesthesiaComment on above:Recent Hospitalization Start: 10-13-2023 End: 92-64-7912Ulkzezjpw to establishmentWill[facility] Work Phone: [place]ELDStart: 10-13-2023 End: 14-98-0504Kwerjbt abuse preventionNew Wayside Emergency Hospital 2 Work Phone: Pre AnesthesiaComment on above:Pre-op examination (Primary Dx); Primary hypertension; Stage 2 chronic kidney disease; Alcoholism (HCC); Gastroesophageal reflux disease without esophagitis; 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)Start: 10-13-2023 End: 23-10-1185Cyjuecesjaapw examination doneNew Wayside Emergency Hospital 2 Work Phone: [facility] Work Phone: Start: 71-59-2068Kri-patient / Non-visitMD Rene Cannon Work Phone: [facility] Infectious Disease Work Phone: Start: 13-90-8612Fum-patient / Non-visitMD Rene Hendersonsb Work Phone: [facility] Med OutPt Work Phone: Start: 10-06-2023 End: 34-96-9398Auaqfagqrr and management of inpatientMD Rene Cannon Work Phone: [facility] [place] Med Surg Work Phone: Start: 13-74-4781Ubqgrsjbu encounterSamer Violetta De León MD Work Phone: General SurgeryComment on above:Schedule Surgery; Stage Electrician Helper - OtherStart: 10-02-2023 End: 67-43-2847Qrtvkzh encounter procedureSamer Violetta De León MD Work Phone: General SurgeryComment on above:Gastric outlet obstruction (Primary Dx); Primary malignant neuroendocrine tumor of ileum (HCC); Encounter for attention to gastrostomy (HCC); Severe protein-calorie malnutrition (HCC)Start: 10-01-2023 End: 85-84-4878Ugwacjzcr Result EncounterGeneric External Data ProviderNOMS External Department UnsolicitedStart: 10-01-2023 End: 67-91-4543Viccuelbv Result EncounterGeneric External Data ProviderNOMS External Department UnsolicitedStart: 10-01-2023 End: 22-18-4740Xwfkpkqpdd hospital visit by physicianArrival Time Radiology Work Phone: Radiology Pet CTComment on above:Gastric outlet obstruction [K31.1]Start: 08-28-2023 End: 77-82-2377Qqzwokqwu Result EncounterGeneric External Data ProviderNOMS External Department UnsolicitedStart: 08-28-2023 End: 43-97-5612Ojzdkzdxg Result EncounterGeneric External Data ProviderNOMS External Department UnsolicitedStart: 08-17-2023 End: 93-75-4119Moaixhuei Result EncounterGeneric External Data ProviderNOMS External Department UnsolicitedStart: 08-17-2023 End: 98-35-4776Jukjkozmc Result EncounterGeneric External Data ProviderNOMS External Department UnsolicitedStart: 08-15-2023 End: 81-63-6585qppwckydxfJfhe Asaad Other [place] Other Start: 61-97-9542Eiqjnrooy encounterImad AsaadFPG Referral CoordinatorStart: 74-93-5416Xmedsdcli encounterSmitul De León MD Work Phone: General SurgeryComment on above:FMLA PaperworkStart: 08-08-2023 End: 78-97-4920Sqycicjke Result EncounterGeneric External Data ProviderNOMS External Department UnsolicitedStart: 08-08-2023 End: 05-21-6046Fhbtwsuph Result EncounterGeneric External Data ProviderNOMS External Department UnsolicitedStart: 08-08-2023 End: 28-97-5899Koqexnxhjfrfe examination doneSahermila Quanuje MD Work Phone: [facility] Work Phone: Start: 08-07-2023 End: 55-91-2713Imcdkjh encounter procedureSamer Violetta De León MD Work Phone: General SurgeryComment on above:Gastric outlet obstruction (Primary Dx)Start: 02-36-9754Fdwirqzzy encounterSamer Violetta De León MD Work Phone: General SurgeryComment on above:Received Outside Medical RecordsStart: 84-70-9452Suhfev Ignacio Zamora RNGeneral Surgery Comment on above:AppointmentStart: 54-00-7057Zgoibxpij encounterSamer Violetta De León MD Work Phone: General SurgeryComment on above:AppointmentStart: 07-24-2023 End: 59-36-5729Zoimkgxxej and management of inpatientMD Rene Cannon Work Phone: [facility] [place] [facility] Work Phone: Start: 02-22-2023 End: 65-66-1715mlquglwglyKifyx Hart Other [place] Other Start: 75-95-9906Hxwbbg outpatient visit 15 minutes Chantal AkersG [facility] Care ClydeStart: 30-92-1421Jdbgcy outpatient visit 15 minutesRene Cannon Work Phone: [phone]-Pwpnc [facility] [address] DO Work Phone: Start: 69-43-5340olzzejkssrKicfybf [place] Facility:[id number]: 01-17-2023 End: 71-46-5336Vlvecjaat to same day surgery centerMD Rene Cannon Work Phone: [facility]-Ip Network Architect Work Phone: Start: 01-17-2023 End: 71-04-0383wdkcengwkiLN Edward J Hemeyer Work Phone: [facility] Work Phone: Start: 01-15-2023 End: 64-58-3030Oxwaoiz encounter procedureMD Rene Cannon Work Phone: [facility] Gvr-Wnh-Niijuqxm Testing Work Phone: Start: 57-21-6588omhxyrrdioXnnobwd [place] Facility:[id number]: 23-66-3667xjsciywnvpLzhmpnp SheldonFacility:[facility]PITALtart: 88-19-4353prdzocqztvGYGFWEUCleveland Clinic Marymount Hospitaltart: 01-11-2022 End: 38-25-7724wkqpjxmykaKfanj Hykes Other [place] Other Start: 49-71-4560Lgzshdqpm encounterDavid HykesFPG GastroenterologyStart: 12-19-2021 End: 97-87-1708jrihwgapzyGiozg Hykes Other [place] Other Start: 26-76-1345Soitjzspo encounterDavid HykesFPG GastroenterologyStart: 11-21-2021 End: 14-80-6846tfuskcidbvBsetk Hykes Other [place] Other Start: 68-79-2634Cecrfx outpatient new 30 minutesDavid HykesFPG GastroenterologyStart: 11-07-2021 End: 12-65-7337rccouvkrhrGWIH S VIGESAAMcKitrick Hospitaltart: 11-07-2021 End: 81-48-2685Hlqwooykyi hospital visit by physicianMwh EkgMWHZ EKGComment on above:Chest pain, unspecified type; Syncope, unspecified syncope typeArrivedBruitStart: 10-31-2021 End: 47-36-4510rrfvodvitpVADZ VIGACMH HOSPITALFacility:J0Vhnst: 09-12-2021 End: 73-48-0547nifqprdrpxTW EDWARD HEMEYERFacility:I2Judbp: 09-11-2021 End: 30-79-9322ucbhquejrcAY EDWARD HEMEYERFacility:R2Sjcph: 09-07-2021 End: 53-75-1537shjayfzcznYD EDWARD HEMEYERFacility:H1 Procedures DateProcedureProcedure DetailPerforming ClinicianStart: 50-76-5886QFN CBC W AUTO DIFF BLDGeneric External Data ProviderStart: 20-33-1106PIM CBC W AUTO DIFF BLD Generic External Data ProviderStart: 31-53-6380YKT CBC W AUTO DIFF BLDGeneric External Data ProviderStart: 90-89-3498KJAS VIT Sal[place] Simon DO Work Phone: Start: 03-30-2025 End: 04-00-2816Hkdsk medical xm&eval compre new pt 1/> vstVisual color changes Chapin Simon DO Work Phone: comment on above:Visual color changes (Primary Dx); Bilateral posterior capsular opacification; Dry eyes; Blepharitis of upper and lower eyelids of both eyes, unspecified type; Other vitamin B12 deficiency anemiaStart: 33-25-3479IAU CBC W AUTO DIFF BLD Generic External Data ProviderStart: 71-05-8991KE PET/CT NEUROENDOCRINE WB Generic External Data ProviderStart: 91-69-8347Waw imaging ct attenuation skull base mid-thighRoselyn Leonard MD Work Phone: Start: 38-48-6797Okilsewt screenVIVEK MARYBELARComment on above:Order Comment: Specimen Type: BLOOD SPECIMENOrdering Facility: [facility] Address:[address] [place] [address] Performed By: #### TSCR ####CC MAIN BLOOD BANKCLIA [id number] [place] [address] [place] AMERICAStart: 02-23-2025 Antibody screenDIVYASTEPHANIE LYMANComment on above:Order Comment: Specimen Type: BLOOD SPECIMEN [facility] Address: [address] [place], [place] [id number] By: #### [id number], [id number] #### [facility] CLIA [id number] [place] [id number] [facility] AMERICAStart: 96-73-6785NQW CBC W AUTO DIFF BLDGeneric External Data ProviderStart: 82-38-1332NGS CBC W AUTO DIFF BLD Generic External Data ProviderStart: 16-77-6324QBK CBC W AUTO DIFF BLDGeneric External Data ProviderStart: 83-71-3734SGC CBC W AUTO DIFF BLDGeneric External Data ProviderStart: 40-28-4243ELO CBC W AUTO DIFF BLDGeneric External Data ProviderStart: 70-91-3037NO PET/CT NEUROENDOCRINE WBGeneric External Data ProviderStart: 89-17-6338Sez imaging ct attenuation skull base mid-thighRoselyn Leonard MD Work Phone: Start: 76-91-1296WhvrrxarecaMiw/Sahara Barrientos Work Phone: Start: 24-01-0041Xsjcxdsr screenDIVYAJOMary SADANAComment on above:Order Comment: Specimen Type: BLOOD SPECIMEN [facility] Address: [address] [place], [place] [address]Performed By: #### [id number], [id number] #### [facility] [place] [id number] [address] [place] [address] AMERICAStart: 32-18-1134Yohqknzv screen Marily RiceComment on above:Result Comment: PERFORMED BY: [address] [place] [address] PATHOLOGIST COPPER PLATE LITHOGRAPHER KAYE NUNEZ M.D.Start: 65-99-8616EH of thorax with Cecil Cannon MD Work Phone: Start: 10-28-2024 End: 21-44-7893Alkcsizzive of occult blood in body fluid specimenRene Cannon MD Work Phone: Start: 18-50-7680Myppxmbm tomography of abdomen and pelvis with Cecil Cannon MD Work Phone: Start: 59-88-6218NEJ CBC W AUTO DIFF BLDGeneric External Data ProviderStart: 44-47-1700GSL CBC W AUTO DIFF BLDGeneric External Data ProviderStart: 88-46-5687MDP CBC W AUTO DIFF BLDGeneric External Data ProviderStart: 10-70-7942XJZ CBC W AUTO DIFF BLDGeneric External Data Provider Start: 54-55-9106LK PET/CT NEUROENDOCRINE WBGeneric External Data ProviderStart: 24-98-2487DBK VASOACTIVE INTESTINAL PEPTIDEGeneric External Data ProviderStart: 55-18-6765OPO CBC W AUTO DIFF BLDGeneric External Data ProviderStart: 39-53-2012EEN CGA SERPL-MCNCGeneric External Data ProviderStart: 11-92-7007DHD COMP METAB 2000 PNL SERPLGeneric External Data ProviderStart: 73-17-2809DSJ GASTRIN SERPL-MCNCGeneric External Data ProviderStart: 93-36-1960FTL SEROTONIN BLDGeneric External Data ProviderStart: 66-63-8489OV PET/CT WHOLE BODY SUBQ Generic External Data ProviderStart: 40-23-9752BVS CBC W AUTO DIFF BLDGeneric External Data ProviderStart: 06-03-2024 End: 42-64-1867Utifp count complete auto&auto difrntl wbcVivek Raoul ARNDT Work Phone: Start: 35-29-3268YSS VASOACTIVE INTESTINAL PEPTIDE Generic External Data ProviderStart: 79-92-9651ZZZ CGA SERPL-MCNCGeneric External Data ProviderStart: 00-75-6450EVR CBC W AUTO DIFF BLDGeneric External Data ProviderStart: 76-31-0726HZO CGA SERPL-MCNCGeneric External Data Provider Start: 86-34-0875UMQ GASTRIN SERPL-MCNCGeneric External Data ProviderStart: 99-59-4923VNG SEROTONIN BLDGeneric External Data ProviderStart: 56-60-4146DDYK SEND OUT TST 1Generic External Data ProviderStart: 69-43-0327Nf abdomen & pelvis w/contrast materialVivek Abhyankar MD Work Phone: Start: 58-86-1588FK PANCREAS/PELVIS W IVCONGeneric External Data ProviderStart: 42-76-5796Vm thorax w/contrast Danielito Leonard MD Work Phone: Start: 04-27-2024H/O: intestinal by-passHistory of bypass gastrojejunostomyRene Cannon MD Work Phone: Start: 74-61-1311MFW CBC W AUTO DIFF BLDGeneric External Data ProviderStart: 62-87-9779Zk abdomen & pelvis w/contrast material Roselyn Leonard MD Work Phone: Start: 22-66-0170JX PANCREAS/PELVIS W IVCONGeneric External Data ProviderStart: 46-44-4842Mlr routine ecg w/least 12 lds w/i&r Generic External Data ProviderStart: 79-84-4429Kdp routine ecg w/least 12 lds w/i&rGeneric External Data ProviderStart: 10-56-1452Cdi routine ecg w/least 12 lds w/i&rGeneric External Data ProviderStart: 17-89-2249Amkvrvxyq for occult blood in fecesMD Rene Cannon Work Phone: Start: 57-77-8112Qfxpujw microbial cultureMD Rene Cannon Work Phone: Start: 21-83-1026Mvwffmcyk ID (NA Multiplex Assay)MD Rene Cannon Work Phone: Start: 33-72-0697TECF-CoV-2, Influenza & RSV (PCR)MD Rene Cannon Work Phone: Start: 68-54-9101Flhxl chest X-rayMD Rene Cannon Work Phone: Start: 01-24-6914Ev abdomen & pelvis w/contrast materialJorge aMhoney MD Work Phone: Start: 16-53-6723QR PANCREAS/PELVIS W IVCONGeneric External Data ProviderStart: 00-89-4746OZH BACTERIA BLD CULTGeneric External Data ProviderStart: 65-70-5681Afa routine ecg w/least 12 lds w/i&rGeneric External Data ProviderStart: 90-89-9296DlqtzkjdbywsouifXiqxcer External Data ProviderStart: 48-97-0713Ulf routine ecg w/least 12 lds w/i&rGeneric External Data ProviderStart: 06-78-3139UqwffpanxnrmywrzafsreahqlfWB Rene Davis Work Phone: Start: 91-07-8610BQ of abdomen and pelvis without contrastMD Edmickey Davis Work Phone: Start: 18-55-4010TN LHC & COR AngioMD Edmickey Davis Work Phone: Start: 41-63-7134NVDREX TEST REPORTAli Roslyn Fajardo MD Work Phone: Start: 48-60-1427Akarhhgcyo spect multiple studiesGreg Tom Gutierrez MD Work Phone: Start: 25-67-2422Neazuw scan extracranial art compl bi studyGreg Tom Gutierrez MD Work Phone: Start: 11-58-5914Puxwf colonoscopyEdward Misa Davis Work Phone: Start: 00-24-4726RlrhxypjxqsZsuckmz ProviderStart: 70-91-9287DmgeuamvaluAll EkgArthroscopy of kneeEdward J Hemesb Work Phone: Cardiac catheterizationEdward J Hemeyer Work Phone: TonsillectomyEdward J [employer] LLCyer Work Phone: Plan of Treatment DateCare ActivityDetailAuthorStart: 14-00-1065Jybonhbzd for malignant neoplasm of colonNOMS HealthcareStart: 68-91-0450Jesrs microalbumin profileDTaP,Tdap,Td Vaccine (2 - Td or Tdap)[facility]tart: 28-33-9335Vxeupvmlu for malignant neoplasm of colonNOMS HealthcareStart: 88-01-3403GSQ Vaccine (1 - 1-dose 75+ series)RSV Vaccine (1 - 1-dose 75+ series)[facility] Hospitaltart: 04-21-2028 Diabetes ScreeningDiabetes ScreeningMemorial Hospitaltart: 82-95-9230Jpnerpns ScreeningDiabetes ScreeningMemorial Hospitaltart: 73-12-5229Qjkagylb Screening Diabetes ScreeningMemorial Hospitaltart: 87-23-7357Qgzdsxdy ScreeningDiabetes ScreeningMemorial Hospitaltart: 80-52-2992Ccnunfxi ScreeningDiabetes Screening [facility] Hospitaltart: 18-97-4997Ipfkaufc ScreeningDiabetes ScreeningMemorial Hospitaltart: 85-51-2901Xzqyutum ScreeningDiabetes ScreeningMansfield Hospital Start: 20-85-0035Qhxphhaz ScreeningDiabetes ScreeningMemorial Hospitaltart: 05-76-4996Iucyczpe ScreeningDiabetes ScreeningMemorial Hospitaltart: 11-02-2027 Diabetes ScreeningDiabetes ScreeningMemorial Hospitaltart: 59-34-7902Etyakjcd ScreeningDiabetes ScreeningMemorial Hospitaltart: 27-95-8065Itqtevqn Screening Diabetes ScreeningMemorial Hospitaltart: 82-07-0531Hawvyjsh ScreeningDiabetes ScreeningMemorial Hospitaltart: 54-18-5663Zbedaqws ScreeningDiabetes Screening [facility] Hospitaltart: 20-76-1018Gkjsneyv ScreeningDiabetes ScreeningMemorial Hospitaltart: 25-45-5769Qmaclrfd ScreeningDiabetes ScreeningMansfield Hospital Start: 99-48-1163Wphphgwl ScreeningDiabetes ScreeningMemorial Hospitaltart: 06-08-5958Acsphwyq ScreeningDiabetes ScreeningMemorial Hospitaltart: 03-24-2027 Diabetes ScreeningDiabetes ScreeningMemorial Hospitaltart: 88-10-3403Tqrbmcycr for malignant neoplasm of colonMer HealthStart: 00-60-7033Oglftlsz Screening Diabetes ScreeningMemorial Hospitaltart: 35-85-0909Xzruakmz ScreeningDiabetes ScreeningMemorial Hospitaltart: 14-17-3993Dsojcqrn ScreeningDiabetes Screening [facility] Hospitaltart: 49-68-4587Xetsfjal ScreeningDiabetes ScreeningMemorial Hospitaltart: 90-46-7408Pjrbz panelLipid screenSamaritan North Health CenterStart: 09-05-2026 Diabetes ScreeningDiabetes ScreeningMemorial Hospitaltart: 17-18-1766Xoitjojg ScreeningDiabetes ScreeningMemorial Hospitaltart: 80-89-1696Ecwanbzs Screening Diabetes ScreeningMemorial Hospitaltart: 22-60-4396Imcxulattg measurementSerum CreatinineMemorial Hospitaltart: 05-18-9879Strhawjmcj measurementSerum CreatinineMemorial Hospitaltart: 59-72-4313Yhnkbhvrxm measurementSerum CreatinineMemorial Hospitaltart: 32-90-3212Ixovihkosg measurementSerum CreatinineMemorial Hospitaltart: 13-68-1065Sfavurfudc measurementSerum CreatinineMemorial Hospitaltart: 07-13-8736Tiztadxlit measurementSerum CreatinineMemorial Hospitaltart: 64-18-5559FR Controlled (<130/80)BP Controlled (<130/80)[facility] Hospitalt[facility]: 29-96-9231Cnuedwle blood count Hemoglobin/HematocritMemorial Hospitaltart: 45-85-6271Mcmubozpit measurement Serum CreatinineMemorial Hospitaltart: 04-01-2026Medicare Annual Wellness (AWV) Medicare Annual Wellness (AWV)[facility] CenterStart: 45-09-4707Mourtmuyae measurementSerum CreatinineMemorial Hospitaltart: 83-49-2605Qcyxolpm blood count Hemoglobin/HematocritMemorial Hospitaltart: 17-06-9836Irhikucaju measurement Serum CreatinineMemorial Hospitaltart: 75-81-5440Cwlxtgkisn measurementSerum CreatinineMemorial Hospitaltart: 05-04-5671Wegmgxzqk for malignant neoplasm of colonMemorial Hospitaltart: 51-79-1619Qspzuyif blood countHemoglobin/Hematocrit [facility] Hospitaltart: 98-52-6784Tjrqrtxubg measurementSerum CreatinineMemorial Hospitaltart: 10-06-2025 End: 17-10-0996Kixopnt encounter dkbccozav66/12/2026 9:30 AM EST Office Visit [facility] [address] [address] Rene Cannon MD [address] [facility] [address] [place] [address] THEODORE Chung MedicineStart: 69-18-4086Xtfygyqrwa measurementSerum CreatinineCleveland ClinicStart: 21-57-7768Psjsxxtizc measurementSerum CreatinineCleveland ClinicStart: 78-55-8110Pgsultuxsm measurementSerum CreatinineCleveland ClinicStart: 67-79-7912Pusnrbxikf measurementSerum CreatinineCleveland ClinicStart: 08-66-3995Jutxlzidhn measurementSerum CreatinineCleveland ClinicStart: 05-31-2025 End: 82-29-3465Yghvwy-up encounterHematology/OncologyComment on above:6 week follow up with lab and sandostatin injStart: 05-31-2025 End: 11-10-9437Scrcryv encounter zwnxhdgyg57/07/2025 1:15 PM EDT Office Visit [facility] [address] [place], [place] [address] [address] 6 week follow up with lab and sandostatin injOur Lady Of The Lake Ascension LaboratoryComment on above:6 week follow up with lab and sandostatin injStart: 05-24-2025 End: 80-13-1673Vaktqdp encounter procedureMolecular ImagingComment on above: DOTATATE-NM PET/CT NEUROENDOCRINE WHOLE BODY IMAGINGStart: 77-63-7798Kupfihtkub measurementSerum CreatinineCoolville ClinicStart: 05-12-2025 End: 37-36-9300frsvffuvzi41/18/2025 1:45 PM EDT [facility]fusion [facility] Hematology/Oncology [address] [place] [address] 3 week lab and sandostatin injHematology/OncologyComment on above:3 week lab and sandostatin injStart: 05-12-2025 End: 83-31-7880Sivqtiq encounter vywxkilmi33/18/2025 1:30 PM EDT Office Visit [facility] [address] [place] [address] 3 week lab and sandostatin injNoGreenbrier Valley Medical Center LaboratoryComment on above:3 week lab and sandostatin injStart: 69-94-3790Tchwpnvsc [facility] HealthcareStart: 48-40-6855Ozwfuxumuo measurementSerum CreatinineClejoint township district memorial hospital ClinicStart: 04-21-2025 End: 05-05-4538Hsqfpu-up encounterHematology/OncologyComment on above:6 week follow up with lab and sandostatin injStart: 04-21-2025 End: 75-91-1783Kxnrpoh encounter ogfchhdve56/28/2025 1:15 PM EDT Office Visit [facility] [address] [place] [address] [place] [address] 6 week follow up with lab and sandostatin injNortAscension River District Hospital LaboratoryComment on above:6 week follow up with lab and sandostatin injStart: 04-13-2025 End: 70-10-2190Eckndnd encounter procedureNOMS BNS FMComment on above:Benign essential hypertension ; Hypertensive nephropathy ; Stage 3a chronic kidney disease (CMS-HCC); Microalbuminuria; Mixed hyperlipidemia ; Alcoholism (HCC); OverweightStart: 03-31-2025 End: 09-06-4803dedidlarwn25/07/2025 1:30 PM EDT [facility] Hematology/Oncology [address] [place] [address] [place] [address] 3 week sandostatin injHematology/OncologyComment on above:3 week sandostatin injStart: 03-30-2025 End: 77-50-9524Zjbkdru encounter atgusryia00/06/2025 1:30 PM EDT Office Visit [facility] [address] [place] [id number] Chapin Simon DO [address] [place] [address] NOMS MARIBEL OPHTStart: 53-99-2911Hiagmrzemw measurement Serum CreatinineCoolville ClinicStart: 03-12-2025 End: 44-27-6942CWC W Auto Differential panel - BloodCOMPLETE BLOOD COUNT AND DIFFERENTIAL Lab Routine 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) Expected: 03/12/2025, Expires: 06/11/2025leveland ClinicComment on above:Expected: 03/12/2025, Expires: 06/11/2025Start: 03-12-2025 End: 83-41-1532Vauwlfvccbqv A [Mass/volume] in Serum or PlasmaCHROMOGRANIN A Lab Routine 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) Expected: 03/12/2025, Expires: 06/11/2025 [place] ClinicComment on above:Expected: 03/12/2025, Expires: 06/11/2025Start: 03-12-2025 End: 89-55-3539Ulfguyefkvcav metabolic 2000 panel - Serum or PlasmaCOMPREHENSIVE METABOLIC PANEL Lab Routine 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) Expected: 03/12/2025, Expires: 06/11/2025leveland ClinicComment on above:Expected: 03/12/2025, Expires: 06/11/2025Start: 03-12-2025 End: 43-39-5899Xlkwxmp [Mass/volume] in Serum or PlasmaGASTRIN BLD Lab Routine 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) Malignant carc inoid tumor of ileum (HCC) Expected: 03/12/2025, Expires: 06/11/2025leveland ClinicComment on above:Expected: 03/12/2025, Expires: 06/11/2025Start: 03-12-2025 End: 08-13-1770Zcllblwxt [Mass/volume] in SerumSEROTONIN BLD Lab Routine 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) Malignant ca rcinoid tumor of ileum (HCC) Expected: 03/12/2025, Expires: 06/11/2025leveland ClinicComment on above:Expected: 03/12/2025, Expires: 06/11/2025Start: 03-10-2025 End: 41-26-8818nzeovjdnuhLmkbmgtcdh/OncologyComment on above:LAB AND SANDOSTATIN needs this date due to PET scan on tart: 03-10-2025 End: 63-51-8395Kxwfqeh encounter ijcmnhxeg32/17/2025 12:45 PM EDT Office Visit [facility] [address] [place] [address] [place] [address] LAB AND SANDOSTATIN needs this date due to PET scan on 03/09 [facility] LaboratoryComment on above:LAB AND SANDOSTATIN needs this date due to PET scan on tart: 03-09-2025 End: 27-99-2891NHA W Auto Differential panel - BloodCOMPLETE BLOOD COUNT AND DIFFERENTIAL Lab Routine Malignant carcinoid tumor of ileum (HCC) Expected: 03/09/2025 (Approximate), Expires: 12/09/2025leveland ClinicComment on above: Expected: 03/09/2025 (Approximate), Expires: 12/09/2025Start: 03-09-2025 End: 83-95-6991Gsvpnuiozqht A [Mass/volume] in Serum or PlasmaCHROMOGRANIN A Lab Routine Malignant carcinoid tumor of ileum (HCC) Expected: 03/09/2025 (Approximate), Expires: 06/08/2025leveland ClinicComment on above:Expected: 03/09/2025 (Approximate), Expires: 06/08/2025Start: 03-09-2025 End: 77-63-8929Fcfdrttlbzjav metabolic 2000 panel - Serum or PlasmaCOMPREHENSIVE METABOLIC PANEL Lab Routine Malignant carcinoid tumor of ileum (HCC) Expected: 03/09/2025 (Approximate), Expires: 12/09/2025leveland ClinicComment on above: Expected: 03/09/2025 (Approximate), Expires: 12/09/2025Start: 03-09-2025 End: 31-09-2055Bnklqnd [Mass/volume] in Serum or PlasmaGASTRIN BLD Lab Routine Malignant carcinoid tumor of ileum (HCC) Expected: 03/09/2025 (Approximate), Expires: 06/08/2025[facility] ClinicComment on above:Expected: 03/09/2025 (Approximate), Expires: 06/08/2025Start: 03-09-2025 End: 47-52-8621JGBGXNADGJGZW, FREE PLASMAMETANEPHRINES, FREE PLASMA Lab Routine Malignant carcinoid tumor of ileum (HCC) Expected: 03/09/2025 (Approximate), Expires: 06/08/2025[facility] ClinicComment on above:Expected: 03/09/2025 (Approximate), Expires: 06/08/2025Start: 03-09-2025 End: 21-16-0221RNZ+CT Brain for tau proteinNM PET/CT NEUROENDOCRINE WHOLE BODY IMAGING Radiology Routine 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 Bone lesion Expected: 03/09/2025, Expires: 01/08/2026[facility] Work Phone: Comment on above:Expected: 03/09/2025, Expires: 01/08/2026Start: 03-09-2025 End: 62-50-9781Szxmwsjeq [Mass/volume] in SerumSEROTONIN BLD Lab Routine Malignant carcinoid tumor of ileum (HCC) Expected: 03/09/2025 (Approximate), Expires: 06/08/2025[facility] ClinicComment on above:Expected: 03/09/2025 (Approximate), Expires: 06/08/2025Start: 03-09-2025 End: 24-55-0907JBODZKNDQY INTESTINAL POLYPEPTIDE (VIP), PLASMAVASOACTIVE INTESTINAL POLYPEPTIDE (VIP), PLASMA Lab Routine Malignant carcinoid tumor of ileum (HCC) Expected: 03/09/2025 (Approximate), Expires: 06/08/2025[facility] ClinicComment on above:Expected: 03/09/2025 (Approximate), Expires: 06/08/2025 Start: 03-09-2025 End: 54-51-7576Ocjqcls encounter procedureMolecular ImagingComment on above: DOTATATE PET [place] 0094Start: 63-93-4998Nqjudwwrxt measurementSerum Creatinine [facility] Hospitaltart: 02-10-2025 End: 12-81-9559spjkukavgl70/19/2025 10:00 AM EDT Infusion Center Hematology/Oncology [address] [place] [address] [place] [address] LAB AND SANDOSTATINHematology/OncologyComment on above:LAB AND SANDOSTATINStart: 02-10-2025 End: 84-19-5924Sudwkpk encounter ebpgiupfv39/19/2025 9:45 AM EDT Office Visit [facility] [address] [place] [address] LAB AND SANDOSTATINNortAscension River District Hospital LaboratoryComment on above:LAB AND SANDOSTATINStart: 57-03-3902Atwiprbcsl measurementSerum CreatinineCoolville ClinicStart: 01-22-2025 End: 30-49-3411UNC W Auto Differential panel - BloodCOMPLETE BLOOD COUNT AND DIFFERENTIAL Lab Routine 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) Expected: 01/22/2025, Expires: 04/23/2025[facility] Work Phone: Comment on above:Expected: 01/22/2025, Expires: 04/23/2025Start: 01-22-2025 End: 81-71-2744Oadkiktdanswd metabolic 2000 panel - Serum or PlasmaCOMPREHENSIVE METABOLIC PANEL Lab Routine 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) Expected: 01/22/2025, Expires: 04/23/2025[facility] ClinicComment on above:Expected: 01/22/2025, Expires: 04/23/2025Start: 01-22-2025 End: 05-51-0790Hvrfxrjy [Mass/volume] in Serum or PlasmaFERRITIN Lab Routine 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) Malignant carcino id tumor of ileum (HCC) Expected: 01/22/2025, Expires: 04/23/2025[facility] ClinicComment on above:Expected: 01/22/2025, Expires: 04/23/2025Start: 01-22-2025 End: 67-38-1196Vcwn and Iron binding capacity panel - Serum or PlasmaIRON AND TIBC Lab Routine 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) Expected: 01/22/2025, Expires: 04/23/2025leveland ClinicComment on above:Expected: 01/22/2025, Expires: 04/23/2025Start: 01-20-2025 End: 85-63-0640zreguwwaprFdzcmkecol/OncologyComment on above:6 WEEK LAB AND SANDOSTATINStart: 01-20-2025 End: 80-36-3499Gwkywmc encounter uzvwimpzq57/29/2025 9:15 AM EDT Office Visit [facility] [address] [place] [address] 6 WEEK LAB AND [facility] LaboratoryComment on above:6 WEEK LAB AND SANDOSTATINStart: 12-30-2024 End: 44-63-6403sowgupodgh69/08/2025 9:45 AM EDT [facility] [address] [place] [address] SANDOSTATINHematology/OncologyComment on above:SANDOSTATINStart: 12-30-2024 End: 68-04-8883Pntrecc encounter ppgswmkan55/08/2025 9:30 AM EDT Office Visit [facility] [address] [place] [address] LAB AND [facility] LaboratoryComment on above:LAB AND SANDOSTATINStart: 12-20-2024 End: 44-12-5996YUV W Auto Differential panel - BloodCOMPLETE BLOOD COUNT AND DIFFERENTIAL Lab Routine Iron deficiency anemia due to chronic blood loss E xpected: 12/20/2024 (Approximate), Expires: 12/09/2025[facility] ClinicComment on above:Expected: 12/20/2024 (Approximate), Expires: 12/09/2025Start: 12-20-2024 End: 22-53-2112Efppinmaw (Vitamin B12) [Mass/volume] in Serum or PlasmaVITAMIN B12 Lab Routine Iron deficiency anemia due to chronic blood loss Expected: 12/20/2024 (Approximate), Expires: 12/09/2025[facility] ClinicComment on above: Expected: 12/20/2024 (Approximate), Expires: 12/09/2025Start: 12-20-2024 End: 90-86-4077Vxaihvutwpmxz metabolic 2000 panel - Serum or PlasmaCOMPREHENSIVE METABOLIC PANEL Lab Routine Iron deficiency anemia due to chronic blood loss Expected: 12/20/2024 (Approximate), Expires: 12/09/2025[facility] ClinicComment on above:Expected: 12/20/2024 (Approximate), Expires: 12/09/2025Start: 12-20-2024 End: 62-94-8717Rtldvmlk [Mass/volume] in Serum or PlasmaFERRITIN Lab Routine Iron deficiency anemia due to chronic blood loss Expected: 12/20/2024 (Approxim ate), Expires: 12/09/2025[facility] ClinicComment on above:Expected: 12/20/2024 (Approximate), Expires: 12/09/2025Start: 12-20-2024 End: 20-55-7794Jdbqke [Mass/volume] in Serum or PlasmaFOLATE, SERUM Lab Routine Iron deficiency anemia due to chronic blood loss Expected: 12/20/2024 (Jarred roximate), Expires: 12/09/2025[facility] ClinicComment on above:Expected: 12/20/2024 (Approximate), Expires: 12/09/2025Start: 12-20-2024 End: 68-19-1383Hkii and Iron binding capacity panel - Serum or PlasmaIRON AND TIBC Lab Routine Iron deficiency anemia due to chronic blood loss Expected: 12/20/2024 (Approximate), Expires: 12/09/2025[facility] ClinicComment on above: Expected: 12/20/2024 (Approximate), Expires: 12/09/2025Start: 12-20-2024 End: 30-56-2896Hfasnkn encounter urytgvrzi94/28/2025 9:00 AM EDT Office Visit [facility] [address] [place], [place] [address] [place] [address] labNortAsc[facility] LaboratoryComment on above:labStart: 12-09-2024 End: 66-02-3766ddocorrlao53/17/2025 9:30 AM EDT [facility] [address] [place] [address] [place] [address] LAB AND SANDOSTATINHematology/OncologyComment on above:LAB AND SANDOSTATINStart: 12-09-2024 End: 27-21-2125Eyrufd-up qwqdpkebk65/17/2025 9:00 AM EDT Visit (SP) Office Hematology/Oncology [address] [place] [address] [address] [place], [place] [phone] Roselyn Leonard MD [address] [facility] [place] [address] Follow up after PET scanHematology/OncologyComment on above: Follow up after PET scanStart: 12-09-2024 End: 17-86-5712Azazato encounter amzdjkjsv59/17/2025 8:45 AM EDT Office Visit [facility] [address] [place], [place] [address] [place] [address] LAB AND SANDOSTATINNortAscension River District Hospital LaboratoryComment on above:LAB AND SANDOSTATINStart: 12-08-2024 End: 81-21-0504FUT W Auto Differential panel - BloodCOMPLETE BLOOD COUNT AND DIFFERENTIAL Lab Routine Anemia, unspecified type Expected: 12/08/2024 (Jarred roximate), Expires: 11/18/2025[facility] Work Phone: Comment on above:Expected: 12/08/2024 (Approximate), Expires: 11/18/2025Start: 12-08-2024 End: 53-20-8058Vkcsbpvqn (Vitamin B12) [Mass/volume] in Serum or PlasmaVITAMIN B12 Lab Routine Anemia, unspecified type Expected: 12/08/2024 (Approximate), Expires: 11/18/2025[facility] ClinicComment on above:Expected: 12/08/2024 (Approximate), Expires: 11/18/2025Start: 12-08-2024 End: 79-08-9313Vjhrvuaptzndg metabolic 2000 panel - Serum or PlasmaCOMPREHENSIVE METABOLIC PANEL Lab Routine Anemia, unspecified type Expected: 12/08/2024 (Approximate), Expires: 11/18/2025[facility] ClinicComment on above:Expected: 12/08/2024 (Approximate), Expires: 11/18/2025Start: 12-08-2024 End: 23-58-4863Ltmqtqwr [Mass/volume] in Serum or PlasmaFERRITIN Lab Routine Anemia, unspecified type Expected: 12/08/2024 (Approximate), Expires: 11/18/2025 [facility]:Expected: 12/08/2024 (Approximate), Expires: 11/18/2025Start: 12-08-2024 End: 14-97-9301Vnxver [Mass/volume] in Serum or PlasmaFOLATE, SERUM Lab Routine Anemia, unspecified type Expected: 12/08/2024 (Approximate), Expires: 11/18/2025 [facility] HospitalComment on above:Expected: 12/08/2024 (Approximate), Expires: 11/18/2025Start: 12-08-2024 End: 08-99-0229Gewi and Iron binding capacity panel - Serum or PlasmaIRON AND TIBC Lab Routine Anemia, unspecified type Expected: 12/08/2024 (Approximate), Expires: 11/18/2025[facility] ClinicComment on above:Expected: 12/08/2024 (Approximate), Expires: 11/18/2025Start: 12-08-2024 End: 67-22-8092Iwtxzjb encounter procedureMolecular ImagingComment on above:NM PET/CT NEUROENDOCRINE WHOLE BODY IMAGINGStart: 12-02-2024 End: 64-24-3890osyrjfvjid78/10/2025 3:15 PM EDT [facility]Oncology [address] [place] [address] [place] [address] Sandostatin inj q 3 weeksHematology/OncologyComment on above:Sandostatin inj q 3 weeksStart: 24-44-1271Nmmkjwrjyr measurementSerum CreatinineMansfield Hospital Start: 12-02-2024 End: 90-64-2460QFF+CT Brain for tau proteinNM PET/CT NEUROENDOCRINE WHOLE BODY IMAGING Radiology Routine Malignant carcinoid tumor of ileum (HCC) Expected: 12/02/2024, Expires: 09/12/2025[facility] Work Phone: Comment on above:Expected: 12/02/2024, Expires: 09/12/2025Start: 11-17-2024 End: 02-72-5514Lnalaq-up cwqensmbx17/26/2025 9:00 AM EDT Visit (SP) Office Hematology/Oncology [address] [place] [address] [address] [place], [place] [phone] Roselyn Leonard MD [address] [facility] [facility] [place] [address] hospital follow upHematology/OncologyComment on above: hospital follow upStart: 72-51-6107RE Controlled (<130/80)BP Controlled (<130/80)[facility]2024 End: 77-41-3314Wagycsd encounter njnzavwoi89/19/2025 9:30 AM EDT Office Visit [facility] [address] [place] [address] Rene Cannon MD [address] [place] [address] (Fax)[facility] CI FM 100Start: 68-43-9048Fmxfwkykad measurementSerum CreatinineMemorial Hospitaltart: 11-05-2024 End: 72-08-9771owtofxmjsn12/14/2025 8:15 AM EDT [facility] Hematology/Oncology [address] [facility] [place] [address] lab and Sandostatin inj q 3 weeksHematology/OncologyComment on above:lab and Sandostatin inj q 3 weeksStart: 11-05-2024 End: 68-87-0258Shlwyjk encounter xqhsknfzu14/14/2025 8:00 AM EDT Office Visit [facility] [address] [place] [address] lab and Sandostatin inj q 3 weeksNortAscension River District Hospital LaboratoryComment on above:lab and Sandostatin inj q 3 weeksStart: 03-01-2025Medicare Annual Wellness VisitMedicare Annual Wellness VisitMemorial Hospitaltart: 10-19-2024 End: 74-47-9938Ygfguhc encounter procedureNOMS CI FM 100Comment on above:Arrived Start: 10-15-2024 End: 32-54-1925wartmmjgra66/21/2025 8:15 AM EST [facility] H[facility]ology[facility]Oncology [address] [facility] [place] [address] lab and Sandostatin inj q 3 weeksHematology/OncologyComment on above:lab and Sandostatin inj q 3 weeksStart: 10-15-2024 End: 71-31-9938Cowgdoh encounter iqeicxgjf31/21/2025 8:00 AM EST Office Visit [facility] [address] [facility] [address] [place] [place] [address] lab and Sandostatin inj q 3 weeksNortAscension River District Hospital LaboratoryComment on above:lab and Sandostatin inj q 3 weeksStart: 25-40-7048WQ Controlled (<130/80)BP Controlled (<130/80)[facility]: 69-47-8236WE Controlled (<130/80)BP Controlled (<130/80)[facility]: 09-24-2024 End: 03-21-4329mzwfbyzvok24/31/2025 8:15 AM EST [facility] Hematology[facility]Oncology [address] [facility] [place] [address] lab and Sandostatin inj q 3 weeksHematology/OncologyComment on above:lab and Sandostatin inj q 3 weeksStart: 09-24-2024 End: 83-64-8074Jdvqyad encounter vwxbojkol73/31/2025 8:00 AM EST Office Visit [facility] [address] [facility] [address] [place] [address] lab and Sandostatin inj q 3 weeksNortAscension River District Hospital LaboratoryComment on above:lab and Sandostatin inj q 3 weeksStart: 03-06-1904Cfelfvcuka measurementSerum CreatinineMemorial Hospitaltart: 09-03-2024 End: 40-77-8527fusrvasxvq56/10/2025 8:15 AM EST [facility] Hematology/Oncology [address] [facility] [place] [address] lab and Sandostatin inj q 3 weeksHematology/OncologyComment on above:lab and Sandostatin inj q 3 weeksStart: 09-03-2024 End: 26-02-8804Oqmtxas encounter towniynpo33/10/2025 8:00 AM EST Office Visit [facility] [address] [facility] [address] lab and Sandostatin inj q 3 weeksNortAscension River District Hospital LaboratoryComment on above:lab and Sandostatin inj q 3 weeksStart: 51-21-9722Vicxqwm Directive DiscussionAdvance Directive DiscussionMemorial Hospitaltart: 08-13-2024 End: 86-53-6778Ttoxll-up encounterHematology/OncologyComment on above:1 week follow up after pet scan with lab sandostatin injStart: 08-13-2024 End: 54-81-2017Bojjnjk encounter jkdalkwpz52/20/2024 1:15 PM EST Office Visit [facility] [address] [place] [address] 1 week follow up after pet scan with lab sandostatin injNoGreenbrier Valley Medical Center LaboratoryComment on above:1 week follow up after pet scan with lab sandostatin injStart: 95-05-5358XZ Controlled (<130/80)BP Controlled (<130/80)[facility]: 07-22-2024 End: 62-77-7453TQQ+CT Brain for tau proteinNM PET/CT NEUROENDOCRINE WHOLE BODY IMAGING Radiology Routine 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 Expected: 07/22/2024 (Approximate), Expires: 08/07/2025 [facility] Work Phone: Comment on above:Expected: 07/22/2024 (Approximate), Expires: 08/07/2025Start: 07-15-2024 End: 45-38-1316Qslcfa-up encounterHematology/OncologyComment on above:6 week follow up with lab and sandostatin injStart: 07-15-2024 End: 63-95-8052Egbggou encounter xmncrgegk18/21/2024 9:15 AM EST Office Visit [facility] [address] [place] [address] 6 week follow up with lab and sandostatin injNortAscension River District Hospital LaboratoryComment on above:6 week follow up with lab and sandostatin injStart: 06-17-2024 End: 99-36-3164ypovrcdedv36/24/2024 9:00 AM EDT [facility] Hematology/Oncology [address] [facility] [place] [address] 2 week sandostatin injHematology/OncologyComment on above:2 week sandostatin injStart: 06-03-2024 End: 62-77-8563Wpuzev-up ccmrlzogx32/10/2024 3:30 PM EDT Visit (SP) Office Hematology/Oncology [address] [facility] [address] [place], [place] [phone] Roselyn Leonard MD [address] [place] [address] [place] [address] Pet scan and follow up / Same day appts per Dr Henry Hematology/OncologyComment on above:Pet scan and follow up / Same day appts per Dr Thompsontart: 06-03-2024 End: 17-22-7741Erhjgke encounter iztujvzuz32/10/2024 12:45 PM EDT Appointment Radiology Pet CT [address] [place] [address] [place] [address] Pet scan and follow up / Same day appts per Dr Bravo Pet CTComment on above:Pet scan and follow up / Same day appts per Dr Jollyrt: 05-20-2024 End: 08-05-6481Toawqu-up encounterHematology/OncologyComment on above:8 week follow up with Sandostatin inj / NO LABSStart: 05-13-2024 End: 28-08-1564Nalgrra encounter oaemjcvvh36/19/2024 7:45 AM EDT Appointment Radiology Pet CT [address] [place] [address] [place] [address] Ct CPancreas and Pelvis with contrastRadiology Pet CTComment on above:Ct CPancreas and Pelvis with contrastStart: 05-12-2024 End: 89-57-3744OBS W Auto Differential panel - BloodCOMPLETE BLOOD COUNT AND DIFFERENTIAL Lab Routine 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) Expected: 05/12/2024 (Approximate), Expires: 03/[facility]/20[facility] Comment on above:Expected: 05/12/2024 (Approximate), Expires: 03/24/2025Start: 05-12-2024 End: 13-16-2243Iiyxpuovmqre A [Mass/volume] in Serum or PlasmaCHROMOGRANIN A Lab Routine 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) Expected: 05/12/2024 (Approximate), Expires: 08/11/2024[facility] ClinicComment on above: Expected: 05/12/2024 (Approximate), Expires: 08/11/2024Start: 05-12-2024 End: 34-54-1920Rmvonocqjjigv metabolic 2000 panel - Serum or PlasmaCOMPREHENSIVE METABOLIC PANEL Lab Routine 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) Expected: 05/12/2024 (Approximate), Expires: 03/24/2025[facility] ClinicComment on above:Expected: 05/12/2024 (Approximate), Expires: 03/24/2025 Start: 05-12-2024 End: 26-61-3642YP Abdomen and Pelvis W contrast IVCT PANCREAS/PELVIS W IVCON Radiology Routine 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, unspecified location of malignancy (HCC) Expected: 05/12/2024 (Approximate), Expires: 04/23/2025[facility] Work Phone: Comment on above:Expected: 05/12/2024 (Approximate), Expires: 04/23/2025Start: 05-12-2024 End: 46-59-2888TN Chest W contrast IVCT CHEST W IVCON Radiology Routine 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) Expected: 05/12/2024 (Approximate), Expires: 04/23/2025[facility] ClinicComment on above:Expected: 05/12/2024 (Approximate), Expires: 04/23/2025Start: 05-12-2024 End: 19-28-7733Tfjbpjq [Mass/volume] in Serum or PlasmaGASTRIN BLD Lab Routine 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) Expected: 04/25 (Approximate), Expires: 08/11/2024[facility] ClinicComment on above: Expected: 05/12/2024 (Approximate), Expires: 08/11/2024Start: 05-12-2024 End: 67-15-9902Mwcupgehm [Mass/volume] in SerumSEROTONIN BLD Lab Routine 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) Expected: (Approximate), Expires: 08/11/2024[facility] ClinicComment on above: Expected: 05/12/2024 (Approximate), Expires: 08/11/2024Start: 05-12-2024 End: 59-46-8788WOGTTVCGVV INTESTINAL POLYPEPTIDE (VIP), PLASMAVASOACTIVE INTESTINAL POLYPEPTIDE (VIP), PLASMA Lab Routine 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) Expected: 05/12/2024 (Approximate), Expires: 08/11/2024[facility] ClinicComment on above:Expected: 05/12/2024 (Approximate), Expires: 08/11/2024Start: 05-12-2024 End: 03-72-4435Mjyqhsk encounter vcsyqmqmn11/18/2024 7:45 AM EDT Appointment Radiology Pet CT [address] [place] [address] [place] [address] Ct CPancreas and Pelvis with contrastRadiology Pet CTComment on above:Ct CPancreas and Pelvis with contrastStart: 04-27-2024 End: 27-76-0074Nxnpsfq encounter rhafjrjwp65/03/2024 9:30 AM EDT Office Visit [facility] [address] [address] Rene Cannon MD [address] [place] [address] Benign essential hypertension (CMS/HCC); Hypertensive nephropathy (CMS/HCC); Stage 2 chronic kidney disease; MicroalbuminuriaN[facility]S CI FM 100Comment on above:Benign essential hypertension (CMS/HCC); Hypertensive nephropathy (CMS/HCC); Stage 2 chronic kidney disease; MicroalbuminuriaStart: 52-55-6656Qnryv-19 Vaccine ()Covid-19 Vaccine ()[facility]: 12-27-2221Jpsxt-19 Vaccine ( season)Covid-19 Vaccine ()[facility]: 66-40-1254Mwbbrmosf vaccinationMemorial Hospitaltart: 04-21-2024 End: 08-07-9121ZRF W Auto Differential panel - BloodCOMPLETE BLOOD COUNT AND DIFFERENTIAL Lab Routine Malignant carcinoid tumor of ileum (HCC) Anemia, u nspecified type Expected: 04/21/2024 (Approximate), Expires: 03/24/2025[facility] ClinicComment on above:Expected: 04/21/2024 (Approximate), Expires: 03/24/2025 Start: 04-21-2024 End: 50-60-9962Czxqpxexq (Vitamin B12) [Mass/volume] in Serum or PlasmaVITAMIN B12 Lab Routine Malignant carcinoid tumor of ileum (HCC) Anemia, unspecified type Expected:04/21/2024 (Approximate), Expires: 03/24/2025[facility] Comment on above:Expected: 04/21/2024 (Approximate), Expires: 03/24/2025Start: 04-21-2024 End: 45-47-0895Rezisokkbaqbm metabolic 2000 panel - Serum or PlasmaCOMPREHENSIVE METABOLIC PANEL Lab Routine Malignant carcinoid tumor of ileum (HCC) Anemia, unspecified type Expected: 04/21/2024 (Approximate), Expires: 03/24/2025 [facility]:Expected: 04/21/2024 (Approximate), Expires: 03/24/2025Start: 04-21-2024 End: 90-56-0585Xhcllyod [Mass/volume] in Serum or PlasmaFERRITIN Lab Routine Malignant carcinoid tumor of ileum (HCC) Anemia, unspecified type Expected: (Approximate), Expires: 03/24/2025[facility] ClinicComment on above: Expected: 04/21/2024 (Approximate), Expires: 03/24/2025Start: 04-21-2024 End: 17-06-0619Vxkrra [Mass/volume] in Serum or PlasmaFOLATE, SERUM Lab Routine Malignant carcinoid tumor of ileum (HCC) Anemia, unspecified type Expected: 04/21/2024 (Approximate), Expires: 03/24/2025[facility] ClinicComment on above: Expected: 04/21/2024 (Approximate), Expires: 03/24/2025Start: 04-21-2024 End: 38-32-0241Rzox and Iron binding capacity panel - Serum or PlasmaIRON AND TIBC Lab Routine Malignant carcinoid tumor of ileum (HCC) Anemia, unspecified type Expected: 04/21/2024 (Approximate), Expires: 03/24/2025[facility] Comment on above:Expected: 04/21/2024 (Approximate), Expires: 03/24/2025Start: 04-21-2024 End: 43-04-8069gdwnvqogin85/28/2024 8:15 AM EDT [facility] [address] [facility] [place] [address] 4 week lab and sandostatin injHematology/OncologyComment on above:4 week lab and sandostatin injStart: 04-21-2024 End: 63-47-1693Rujzmbq encounter gmctcviwu79/28/2024 8:00 AM EDT Office Visit [facility] [address] [facility] [place] [address] 4 week lab and sandostatin injNortAscension River District Hospital LaboratoryComment on above:4 week lab and sandostatin injStart: 03-24-2024 End: 58-00-9737Fcwtjd-up encounterHematology/OncologyComment on above:4 week follow up with lab / Please call patient IF an earlier time opens.Start: 03-24-2024 End: 38-65-8359Bipjpgs encounter jkfatfizo80/31/2024 10:45 AM EDT Office Visit [facility] [address] [facility] [place] [address] 4 week follow up with lab and sandostatinNortAscension River District Hospital LaboratoryComment on above:4 week follow up with lab and sandostatinStart: 02-25-2024 End: 73-11-7349Ejipua-up encounterHematology/OncologyComment on above:8 week follow up with lab and sandostatin injStart: 02-25-2024 End: 76-31-7789Gmdxngb encounter uhxtsnodc54/03/2024 11:15 AM EDT Office Visit [facility] [address] [place] [address] [place] [address] 8 week follow up with lab and sandostatin injNortAscension River District Hospital LaboratoryComment on above:8 week follow up with lab and sandostatin injStart: 02-18-2024 End: 93-64-1496PJ Abdomen and Pelvis W contrast IVCT PANCREAS/PELVIS W IVCON Radiology Routine Malignant carcinoid tumor of ileum (HCC) Expected: 02/18/2024 (Approximate), Expires: 02/26/2025[facility] Work Phone: Comment on above:Expected: 02/18/2024 (Approximate), Expires: 02/26/2025Start: 02-18-2024 End: 83-26-5805Vzgccie encounter tvlqsekux07/26/2024 7:45 AM EDT Appointment Radiology Pet CT [address] [place] [address] CT PELVIS Radiology Pet CTComment on above:CT PELVISStart: 01-28-2024 End: 49-36-1872LTY W Auto Differential panel - BloodCOMPLETE BLOOD COUNT AND DIFFERENTIAL Lab Routine 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) Anemia, unspecified type Expected: 01/28/2024 (Approximate), Expires: 01/24/2025[facility] Work Phone: Comment on above:Expected: 01/28/2024 (Approximate), Expires: 01/24/2025Start: 01-28-2024 End: 60-65-8908Cgnkppjjkqpt A [Mass/volume] in Serum or PlasmaCHROMOGRANIN A Lab Routine 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) Anemia, unspecified type Expected: 01/28/2024 (Approximate), Expires: 04/28/2024 [facility]:Expected: 01/28/2024 (Approximate), Expires: 04/28/2024Start: 01-28-2024 End: 99-03-2949Roncaiaol (Vitamin B12) [Mass/volume] in Serum or PlasmaVITAMIN B12 Lab Routine 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) Anemia, unspecified type Expected: 01/28/2024 (Approximate), Expires: 01/24/2025 [facility]Comment on above:Expected: 01/28/2024 (Approximate), Expires: 01/24/2025Start: 01-28-2024 End: 74-93-3994Yeluhtiqqjwyr metabolic 2000 panel - Serum or PlasmaCOMPREHENSIVE METABOLIC PANEL Lab Routine 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) Anemia, unspecified type Expected: 01/28/2024 (Approximate), Expires: 01/24/2025[facility] ClinicComment on above:Expected: 01/28/2024 (Approximate), Expires: 01/24/2025Start: 01-28-2024 End: 11-51-8186Xezjxhui [Mass/volume] in Serum or PlasmaFERRITIN Lab Routine 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) Anemia, unspecifi ed type Expected: 01/28/2024 (Approximate), Ex[facility]: [facility] Comment on above:Expected: 01/28/2024 (Approximate), Expires: 01/24/2025Start: 01-28-2024 End: 95-11-7540Bxuogo [Mass/volume] in Serum or PlasmaFOLATE, SERUM Lab Routine 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) Anemia, unsp ecified type Expected: 01/28/2024 (Approximate), Expires: 01/24/2025[facility] ClinicComment on above:Expected: 01/28/2024 (Approximate), Expires: 01/24/2025 Start: 01-28-2024 End: 05-56-7708Nrza and Iron binding capacity panel - Serum or PlasmaIRON AND TIBC Lab Routine 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) Anemia, unspecified type Expected: 01/28/2024 (Approximate), Expires: 01/24/2025 [facility]Comment on above:Expected: 01/28/2024 (Approximate), Expires: 01/24/2025Start: 01-28-2024 End: 46-31-7864Gljfma-up encounterHematology/OncologyComment on above:8 week follow up with lab and sandostatin injStart: 01-28-2024 End: 44-85-6137Exjhwxx encounter peibwkbtk08/05/2024 9:30 AM EDT Office Visit [facility] [address] [place] [address] 8 week follow up with lab and sandostatin injNortAscension River District Hospital LaboratoryComment on above:8 week follow up with lab and sandostatin injStart: 12-31-2023 End: 06-87-6850djlthuvegd81/08/2024 9:30 AM EDT [facility] [address] [facility] [place] [address] Sandostatin injection ok'd by TSmitHematology/OncologyComment on above: Sandostatin injection ok'd by TSmithStart: 10-13-2023 End: 59-76-9490GAY W Auto Differential panel - BloodSalem City Hospital Work Phone: Comment on above:Expected: 10/13/2023, Expires: 01/12/2024Start: 10-13-2023 End: 02-65-1249ZVYC AND SCREEN,30 DAYSalem City Hospital Work Phone: Comment on above:Expected: 10/13/2023, Expires: 01/12/2024Start: 03-57-9143KlvohbmvbKettering Health Prebletart: 10-09-2023 [facility]: 54-19-1627BvcflgffuKettering Health [facility]: 06-51-1223Wbiqv culture for bacteria, including anaerobic screen Blood CultureK[facility] Health [facility]: 55-92-2007Fptnnfxc to infectious diseases physicianKettering Health [facility]: 10-07-2023 [facility]: 28-71-9418Rgcizunp identified in Unspecified specimen by Aerobe cultureK[facility]tering Health [facility]: 88-46-7222Nyjkplss admissionKettering Health [facility]: 10-06-2023 [facility]: 98-91-3008Zdqpxgno identified in Blood by CultureK[facility]: 85-73-2212Kbeha culture for bacteria, including anaerobic screenBlood CultureKet[facility]: 53-02-2188Hvzumft Directive DiscussionAdvance Directive Discussion [facility]: 03-64-2407Smxnjewuki Health ScreeningBehavioral Health ScreeningMemorial Hospitaltart: 15-71-7564Owsluzgpjj AssessmentDepression AssessmentMemorial Hospitaltart: 22-14-2375ZlmfkjvyfAdena Regional Medical Center Start: 72-32-9487Cskuhmjiussvb metabolic 2000 panel - Serum or PlasmaKettering Health [facility]: 71-61-9956ClvtfagaiKettering Health [facility]: 27-54-2570Eqjib chemistryK[facility]: 07-24-2023 Referral to Social ServicesK[facility]: 07-24-2023 End: 41-36-7686HmfqlrnkyK[facility]: 16-23-4998Hpxgiqle to speech and language therapy serviceKettering Health [facility]: 66-06-6712Mqxutbtz to gastroenterologistKettering Health [facility]: 07-26-0942Rzoaokdt of Duodenum, Via Natural or Artificial Opening Endoscopic, DiagnosticExcision of Duodenum, Via Natural or Artificial Opening Endoscopic, DiagnosticKettering Health [facility]: 39-51-0517Xvzczdev of Stomach, Pylorus, Via Natural or Artificial Opening Endoscopic, DiagnosticExcision of Stomach, Pylorus, Via Natural or Artificial Opening Endoscopic, Diagnostic [facility]: 99-38-7669Crrgopfr admissionKettering Health [facility]: 16-53-9961Cjidfzkm to nephrologistKettering Health [facility]: 67-56-6754Ipepu-19 Vaccine () Covid-19 Vaccine ( season)[facility]: 36-76-4775Wmyomebjl vaccinationInfluenza Vaccine (#1)[facility]: 01-17-2023 End: 61-36-7683MlvqaoyihKettering Health [facility]: 57-21-7957Gaayiudvbw measurementCreatinine monitoringPremier Health Miami [facility]: 06-23-5850Inwoxilxf monitoringPotassium monitoringPremier Health Miami [facility]: 60-96-9222Rihxgoo Directive DiscussionAdvance Directive DiscussionMemorial Hospitaltart: 08-25-2022 Depression AssessmentDepression AssessmentMemorial Hospitaltart: 12-04-2021 End: 04-64-9099Ytokhrp encounter opusccfop88/12/2022 Office Visit Cardiology Douglas Guiterrez MD [address] [place] [address] [facility] Cardiology SpecialistStart: 24-16-6265Ndlaolnzs vaccinationFlu vaccine (#1)[facility]: 07-12-8495Yyapyftfbnon 65+ years Vaccine (1 of 1 - PPSV23)Pneumococcal 65+ years Vaccine (1 of 1 - PPSV23)[facility]: 39-57-3831Hkolzpkdgbnm Vaccine: 65+ (1 - PCV)Pneumococcal Vaccine: 65+ (1 - PCV)[facility]: 86-96-2880Pltaieahkebx Vaccine: 65+ (1 of 1 - PCV)Pneumococcal Vaccine: 65+ (1 of 1 - PCV)[facility]: 2015 RSV Vaccine (1 - 1-dose 60+ series)RSV Vaccine (1 - 1-dose 60+ series)[facility]: 33-34-3999THO Vaccine (1 - Risk 60-74 years 1-dose series)RSV Vaccine (1 - Risk 60-74 years 1-dose series)[facility]: 2010 Prostate specific antigen measurementProstate Cancer Screening Discussion [facility]: 50-96-1389Tkyypigzhgul Vaccine: 50+ (1 of 1 - PCV) Pneumococcal Vaccine: 50+ (1 of 1 - PCV)[facility]: 2005 Shingles Vaccine (1 of 2)Shingles Vaccine (1 of 2)[facility]: 2005 Shingrix Vaccine (1 of 2)Shingrix Vaccine (1 of 2)[facility]: 30-68-6569Hcxtpyym ScreeningDiabetes ScreeningMemorial Hospitaltart: 2000 Screening for malignant neoplasm of colonSamaritan North Health CenterStart: 78-31-8426Rgsoy panelLipid ScreeningMemorial Hospitaltart: 96-36-4132RAjD/Tdap/Td vaccine (1 - Tdap)DTaP/Tdap/Td vaccine (1 - Tdap)[facility] CenterStart: 00-35-9468Lxktyxgerbpr Vaccine: 50+ (1 of 2 - PCV)Pneumococcal Vaccine: 50+ (1 of 2 - PCV)[facility]: 77-41-0806Tyelu microalbumin profileDTaP,Tdap,Td Vaccine (1 - Tdap) [facility]: 13-15-2469Rbhgii PCP Team Chronic Disease VisitAnnual PCP Team Chronic Disease VisitMemorial Hospitaltart: 10-95-2079Zyczpiv Screening Anxiety ScreeningMemorial Hospitaltart: 27-82-6790HZ Controlled (<130/80)BP Controlled (<130/80)[facility]: 33-17-1654Lxueupbkos Screening Depression ScreeningMemorial Hospitaltart: 33-50-4964Mstezrdsv C screening Hepatitis C ScreeningSelect Medical Specialty Hospital - Trumbullrt: 11-05-0365Slvqswsqlw Screen Depression ScreenSamaritan North Health CenterStart: 40-63-4337Nwadwadhlrfd Vaccine: 65+ Years (1 of 2 - PCV)Pneumococcal Vaccine: 65+ Years (1 of 2 - PCV)[facility] CenterStart: 43-75-6145ZTCEP-19 Vaccine (1)COVID-19 Vaccine (1)[facility] CenterStart: 01-15-1956 Covid-19 Vaccine (#1)Covid-19 Vaccine (#1)[facility]: 1955 Hepatitis C screeningHepatitis C screenSamaritan North Health CenterStart: 06-33-9220Ixjuoozmm for malignant neoplasm of colonNOMS HealthcareAnion gap measurementAdena Regional Medical CenterBlood chemistryAdena Regional Medical Center End: 82-35-3314Flvgrdt event monitorCardiac event monitor Cardiac Services Routine Chest pain, unspecified type Syncope, unspecified syncope type 1 Occurrences starting 11/07/2021 until 11/07/2021[facility] [employer] Work Phone: comment on above:1 Occurrences starting 11/07/2021 until 11/07/2021 End: 15-91-3181EGM W Auto Differential panel - BloodCOMPLETE BLOOD COUNT AND DIFFERENTIAL Lab Routine 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) Every 3 weeks for 18 Occurrences starting 02/10/2024 until 5[facility] ClinicComment on above:Every 3 weeks for 18 Occurrences starting 02/10/2024 until 02/09/2025 End: 20-29-4758FLN W Auto Differential panel - BloodCOMPLETE BLOOD COUNT AND DIFFERENTIAL Lab Routine Iron deficiency anemia due to chronic blood loss Every 3 weeks for 18 Occurrences starting 12/09/2024 until 6[facility] Comment on above:Every 3 weeks for 18 Occurrences starting 12/09/2024 until 12/09/2025 End: 63-22-6642Vjpmwnerkxtw A [Mass/volume] in Serum or PlasmaCHROMOGRANIN A Lab Routine 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) Every 3 weeks for 18 Occurrences starting 02/10/2024 until 5[facility] ClinicComment on above:Every 3 weeks for 18 Occurrences starting 02/10/2024 until 5Chromogranin A [Mass/volume] in Serum or PlasmaCHROMOGRANIN A Lab Routine 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) 06/03/2024 12:46 PM EDTCleveland Clinic End: 77-88-4897Oksiruhkzikck metabolic 2000 panel - Serum or PlasmaCOMPREHENSIVE METABOLIC PANEL Lab Routine 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) Every 3 weeks for 18 Occurrences starting 02/10/2024 until 5[facility] ClinicComment on above:Every 3 weeks for 18 Occurrences starting 02/10/2024 until 02/09/2025 End: 15-21-3198Lafcbqmeotffj metabolic 2000 panel - Serum or PlasmaCOMPREHENSIVE METABOLIC PANEL Lab Routine Iron deficiency anemia due to chronic blood loss Every 3 weeks for 18 Occurrences starting 12/09/2024 until 6[facility] ClinicComment on above:Every 3 weeks for 18 Occurrences starting 12/09/2024 until 12/09/2025Dup-scan xtr veins complete bilateral studyVASCULAR REPORT Imaging Ordered: 11/08/2021[facility] HealthComment on above:Ordered: 11/08/2021 End: 83-95-7680Loyznhd [Mass/volume] in Serum or PlasmaGASTRIN BLD Lab Routine 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) Every 3 weeks for 18 Occurrences starting 02/10/[address] [place] [address] Work Phone: Comment on above:Every 3 weeks for 18 Occurrences starting 02/10/2024 until 02/09/2025Patient EducationFairfield Medical Center C[facility] Work Phone: Patient referralFairfield Medical Center Ctr Work Phone: PET+CT Brain for tau proteinNM PET/CT NEUROENDOCRINE WHOLE BODY IMAGING Radiology Routine 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 08/03/2024 8:45 AM [facility] Work Phone: End: 36-28-0265VGW+CT Brain for tau proteinNM PET/CT NEUROENDOCRINE WHOLE BODY IMAGING Radiology Routine 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) 1 Occurrences starting 04/21/[address] [place] [address] Work Phone: Comment on above:1 Occurrences starting 04/21/2025 until 05/21/2026 End: 44-79-4309XZI+CT Whole body Bone W 18F-NaF IVNM PET/CT WHOLE BODY SUBSEQUENT Radiology Routine 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 Bone lesion 1 Occurrences starting 05/20/[address] [place] [address] Work Phone: Comment on above:1 Occurrences starting 05/20/2024 until 06/19/2025PET+CT Whole body Bone W 18F-NaF IVNM PET/CT WHOLE BODY SUBSEQUENT Radiology Routine 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 Bone lesion 06/03/2024 2:28 PM [facility] Work Phone: End: 79-66-0872Wlsqsyijm [Mass/volume] in SerumSEROTONIN BLD Lab Routine 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) Every 3 weeks for 18 Occurrences starting 02/10/2024 until 5[facility] ClinicComment on above:Every 3 weeks for 18 Occurrences starting 02/10/2024 until 02/09/2025Serotonin [Mass/volume] in Serum SEROTONIN BLD Lab Routine 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) 06/03/2024 12:46 PM EDT [facility] End: 14-99-2177Dyrupu test, myoviewStress test, myoview Cardiac Services Routine Chest pain, unspecified type Syncope, unspecified syncope type 1 Occurrences starting 11/07/2021 until 11/07/2021[facility] Work Phone: comment on above:1 Occurrences starting 11/07/2021 until 11/07/2021 End: 29-80-0565Cdtrykquli intestinal peptide [Mass/volume] in Serum or PlasmaVIP Lab Routine 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) Every 3 weeks for 18 Occurrences starting 02/10/2024 until 02/09/2025leveland ClinicComment on above:Every 3 weeks for 18 Occurrences starting 02/10/2024 until 02/09/2025VIPVIP Lab Routine 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) 06/03/2024 12:46 PM [facility]TCU[facility] Immunizations Immunization DateImmunizationNotesCare QidamawuApkdajzi75-77-6611nrniebb toxoid, reduced diphtheria toxoid, and acellular pertussis vaccine, Shey De León MD Work Phone: [facility] Payers DatePayer CategoryPayerPolicy [id number] Health Insurance [id number] [id number] [id number] 2020Medicare [id number] Cross Blue Shield [id number]kj11-53-0454 RixaakbLHLZC584715827-15-4360UpgypetWTM13[id number] 2.0.1.024056.3.57[id number] 2.0.1.257264.3.57[id number] 2.0.1.487843.3.57[id number] 2.0.1.612773.3.57[id number] 2.840.1.324796.3.57[id number] 2.840.1.233741.3.57[id number] 2.840.1.294219.3.57[id number] 2.840.1.662075.3.57[id number] 2.16.840.1.677551.3.57[id number] 2.16.840.1.617415.3.57[id number] 2.16.840.1.399465.3.57[id number] 2.16.840.1.688989.3.579.[id number] 2.16.840.1.543148.3.57[id number] 2.16.840.1.570643.3.579.2.10663-41-1748Agzbqna10053121 2..840.1.976863.3.57[id number] 2.16.840.1.026779.3.57[id number] 2..840.1.859688.3.57[id number] 2..840.1.790945.3.57[id number] 2.840.1.122923.3.57[id number] 2.16.840.1.56[id number] 2.840.1.947350.3.579.2.531 Social History DateTypeDetailFacilityStart: 10-23-2021 End: 89-65-0142Xrvjvgs smoking status NHISNever smoked tobaccoSamaritan North Health CenterStart: 10-23-2021 End: 23-79-8486Endskqn use and exposureSmokeless tobacco non-userUniversity Hospitals [facility] Medical Center [employer] Work Phone: start: 10-24-2021 End: 27-68-3812Udkzqtm intakeCurrent drinker of alcohol (finding)[facility] [employer] Work Phone: start: 10-24-2021 End: 01-06-0581Zeuvnxi intakeMansfield HospitalComment on above:couple beers at night;Start: 79-18-8227Wag Assigned At BirthNot on fileUniversity Hospitals Cleveland Medical Center [employer] Work Phone: start: 08-07-2023 End: 31-98-9683Hug [facility]: 71-19-8857Qcn Assigned At [facility] HospitalTobacc smoking status NHISTobacco smoking consumption unknownMemorial Hospitaltart: 08-07-2023 End: 13-55-7152Pkjmpyc intakeEx-drinker (finding)[facility]: 11-06-2022 End: 04-19-7603Yhdxhkxf Score (1-100), lower number is lower kmqc38EcjkfzwxsMemorial Hospitaltart: 01-10-9067Bytjqte Commenta few beers per dayMansfield HospitalHas the [employer] gas, oil, or water [employer] threatened to shut off services in your home in past 12FrioClOhioHealth Arthur [facility](I/We) worried whether (my/our) food would run out before (I/we) got money to buy more.Never trueMemorial Hospitaltart: 18-73-5290Jsfddg identityIdentifies as male gender (finding)[facility] Start: 76-16-7185Dzejfm orientationHeterosexual (finding)[facility] HospitalDo you belong to any clubs or organizations such as latter-day groups, unions, fraternal or athletic groups, or school groups?YesNOMS HealthcareAre you now , , , , never or living with a partner?MarriedNOMS HealthcareHow often to you have a drink containing alcohol?4 or more times a weekNOMS HealthcareHow many standard drinks containing alcohol do you have on a typical day?5 or 6NOMS HealthcareHow often do you have 6 or more drinks on 1 occasion?WeeklyNOMS HealthcareHow hard is it for you to pay for the very basics like food, housing, medical care, and heatingNot very hardNOMS HealthcareDo you feel stress - tense, restless, nervous, or anxious, or unable to sleep at night because yourmind is troubled all the time - these days [OSQ]To some extentNOWY HealthcareStart: 67-30-6323Nadgahhxk09XEUC HealthcareStart: 67-35-3029Mpqwmtn CommentCaffeine intake : 1-2 cups perdayNOCox NorthStart: 20-53-0511AsdArkl (finding)[facility] Medical Equipment Procedure CodeEquipment CodeEquipment Original TextEquipment IdentifierDates Nws-13-Xodg-S Percutane Endoscopic Gastrostomy [id number]: 08-13-2023 Jejunal Feeding Set 12ff X [id number]: 48-68-4326Cpfepwvuc Trufill Nbca Embolization Kit Liquid System 1gm - [id number]: 02-26-2025 Goals DatePatient GoalDesired Activity/State Functional Status TqfwXdcwujlwbdUwxtiaKyqaqikm68-81-7560Dudrrmo Health Questionnaire 2 item (PHQ- 2) [Reported][facility] Medical CenterVcpmfkzemd94-17-0129Hzh you deaf, or do you have serious difficulty hearingNo 02/27/2025 5:54 PM EDT Priti Vergara RN [facility] HospitalVzlnzc69-41-8089Oov you blind, or do you have serious difficulty seeing, even when wearing glassesNo 02/27/2025 5:54 PM EDT Priti Vergara RN NoCOhioHealthIhnfyr27-57-6796Ru you have serious difficulty walking or climbing stairsNo 02/27/2025 5:54 PM EDT Priti Vergara RN NoCOhioHealthWtdphk48-88-2013Gk you have difficulty dressing or bathingNo 02/27/2025 5:54 PM EDT Priti Vergara RN NoCOhioHealthPttbmh43-99-5231Muggkwn of a physical, mental, or emotional condition, do you have difficulty doing errands alone such as visiting a physician's office or shoppingNo 02/27/2025 5:54 PM EDT Priti Vergara RN No [facility] HospitalCzyovx33-81-6740Fii you deaf, or do you have serious difficulty hearingNo 11/03/2024 3:16 PM EDT Guerline De La Torre RN [facility]03-12-2025 Are you blind, or do you have serious difficulty seeing, even when wearing glassesNo 11/03/2024 3:16 PM EDT Guerline De La Torre RN [facility]03-12-2025 Do you have serious difficulty walking or climbing stairsNo 11/03/2024 3:16 PM EDT Guerline De La Torre RN [facility]03-12-2025Do you have difficulty dressing or bathingNo 11/03/2024 3:16 PM EDT Guerline De La Torre RN [facility] HospitalTitzzk31-71-0881Mnxoyor of a physical, mental, or emotional condition, do you have difficulty doing errands alone such as visiting a physician's office or shoppingNo 11/03/2024 3:16 PM EDT Guerline De La Torre RN [facility]02-25-2025 Patient Health Questionnaire 2 item (PHQ-2) [Reported][facility] Medical CenterLyggralwyu21-22-6164 Are you deaf, or do you have serious difficulty hearingNo 11/07/2023 2:39 PM EDT Rubi Yates RN [facility] HospitalTwegkz01-69-0535Crs you blind, or do you have serious difficulty seeing, even when wearing glassesNo 11/07/2023 2:39 PM EDT Rubi Yates RN [facility]03-15-2024Do you have serious difficulty walking or climbing stairsNo 11/07/2023 2:39 PM EDT Rubi Yates RN No [facility] HospitalOnkwsp53-90-2549Ej you have difficulty dressing or bathingNo 11/07/2023 2:39 PM EDT Rubi Yates RN [facility] HospitalLybikr87-62-1986Eubnhjd of a physical, mental, or emotional condition, do you have difficulty doing errands alone such as visiting a physician's office or shoppingNo 11/07/2023 2:39 PM EDT Rubi Yates RN [facility] HospitalHczqze47-57-2032Bgmsb score [AUDIT-C] 9 10/14/2023 10:48 AM EST Mychart, GenericNorthwest Medical CenterNxdzbbxldw69-39-0228Cbu often do you have a drink containing alcohol?4 or more times a week 10/14/2023 10:48 AM EST Mychart, Generic 4 or more times a weekNorthwest Medical CenterMbhkzraphe86-15-4690Rub many standard drinks containing alcohol do you have on a typical day?5 or 6 10/14/2023 10:48 AM EST Mychart, Generic 5 or 6Northwest Medical CenterLpizuensia81-54-1621Fhi often do you have 6 or more drinks on 1 occasion?Weekly 10/14/2023 10:48 AM EST Mychart, Generic WeeklyNorthwest Medical CenterEleoydtedn32-31-5524Arecbmrguz statusPatient at BaselineThe [facility] Hospital Work Phone: [phone]mhketig statusPatient at Baseline [facility] Work Phone: [phone]bmtepop statusPatient at Baseline [facility] Work Phone: [facility] Mental Status VainDhukofqjntWnbluoRqkaivmp27-78-2093Kvxryim of a physical, mental, or emotional condition, do you have serious difficulty concentrating, remembering, or making decisionsNo 02/27/2025 5:54 PM EDT Priti Vergara RN [facility] HospitalHvbgyh00-08-3985Alglrzr of a physical, mental, or emotional condition, do you have serious difficulty concentrating, remembering, or making decisionsNo 11/03/2024 3:16 PM EDT Guerline De La Torre RN [facility] HospitalKllldy69-53-9158Xhlsdpz of a physical, mental, or emotional condition, do you have serious difficulty concentrating, remembering, or making decisionsNo 11/07/2023 2:39 PM EDT Rubi Yates RN [facility] HospitalPhmvgc26-15-5698Xjvxjdtmw functionCognitive Status [facility] at [facility]The [facility] Work Phone: [phone]zcagqrc functionCognitive Status Patient at BaselineThe [facility] Work Phone: [phone]fqqvnok functionCognitive Status Patient at BaselineFair[facility] Work Phone: Clinical Notes 11-07-2021 to 06-08-2025 Note Date & DgogJzllNofxjkdn50-53-9537 NoteUniversity Hospitals [facility]10-14-2025 NoteUniversity Hospitals Samaritan [facility] Center09-02-2025 Telephone encounter Note* Telephone Encounter - Reina Marquez - 04/26/2025 3:14 PM EDT PT SCHEDULED 05/24 [facility]09-02-2025 Miscellaneous Notes* Telephone Encounter - Reina Marquez - 04/26/2025 3:14 PM EDT PT SCHEDULED 05/24 * Telephone Encounter - Indigo Ayala - 04/26/2025 9:09 AM EDT 04/26/2025 1st Attempt, LVM * Telephone Encounter - Lianet Donnelly RN - 04/22/2025 9:41 AM EDT DOTATATE Comments for Overedge Machine Operator: GA-68-/Shashi Week of 05/23/25 Will the patient need anesthesia: no Treatment: Sandostatin Long Acting Date of Last Treatment: 03-31-25 Date of Future Treatment: 04-11-25 and 05-31-25 Primary Insurance: Medicare B Effective Date: 10-23-24 Date of Initial PET: N/A Cancer Type: Metastatic malignant neuroendocrine tumor Date of Subsequent PET scan: S1-08/03/24, S2-12/08/24, S3-03-09-25, S4 pend PET Scan Related to Transplant: ABN Required: Yes Overedge Machine Operator please add ABN TO BE SIGNED to appointment notes, ABN to be signed and re-scanned into Epic. 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 The patient is status post palliative GJ bypass on 10/29/2023 and presents for systemic therapy with SSA (Sandostatin). Additional Information/Imaging: N/A Is this the first Dotatate PET: No Date of last Dotatate Image: 03-09-25 Ga-68 Dotatate Scan: positive Isotope used: GA-68-/[place] Positive Scan Schedule at place of last ([facility] or [facility] Negative Scan Schedule at ANY Dotatate site requested Isotope used: [facility] Copper CU-64 [place]/ GA-68 (NETSPOT) Dotatate Dotatate [id number] (54cCi) Gallium Dotatate (NetSpot) Auth#: no precert Date Range: NPI: Member ID: Medicare Site/Contact: Case/Ref#: Notes: Route to: P PET ALARM INSTALLER [facility] * Telephone Encounter - Hyacinth Mcpherson - 04/21/2025 2:05 PM EDT This form is used for MAIN CAMPUS APPOINTMENTS ONLY. Is this request for a [place] PET scan appointment? Yes: Air Transportation Provider: Hyacinth Wheeler Who do we call to schedule this appointment? Patient Requesting Staff Rahat Adair Area Code + Phone/Pager: [phone] PET Orders (A delay in scheduling will result if the orders are not present at time of review): Internal ADDITIONAL ACTION MAY BE REQUIRED IF PATIENTS OON INSURANCE OR SELF PAY COVERAGE HAS NOT BEEN CLEARED FOR REQUESTED APPOINTMENT. Scheduling: Specific date/time (Requests should be greater then 10 buisness days): Week of 05/23/25 What account will this PET appointment be linked to? P/F Type of PET: Oncology: Are there additional diagnostic CT scans required to be done at time of PET scan? No Is the request for a PET MR ? No What account will diagnostic testing appointment be linked to? P/F Will the patient need anesthesia? NO Send requests to P COORD JAKE [facility] documented in this encounterMans[facility] Hospital09-02-2025 Telephone encounter Note * Telephone Encounter - Indigo Ayala - 04/26/2025 9:09 AM EDT 04/26/2025 1st Attempt, LVM [facility]08-29-2025 Telephone encounter Note* Telephone Encounter - Lianet Donnelly RN - 04/22/2025 9:41 AM EDT DOTATATE Comments for Overedge Machine Operator: GA-68-MC/Shashi Week of 05/23/25 Will the patient need anesthesia: no Treatment: Sandostatin Long Acting Date of Last Treatment: 03-31-25 Date of Future Treatment: 04-11-25 and 05-31-25 Primary Insurance: Medicare B Effective Date: 10-23-24 Date of Initial PET: N/A Cancer Type: Metastatic malignant neuroendocrine tumor Date of Subsequent PET scan: S1-08/03/24, S2-12/08/24, S3-03-09-25, S4 pend PET Scan Related to Transplant: ABN Required: Yes [place] Machine Operator please add ABN TO BE SIGNED to appointment notes, ABN to be signed and re-scanned into [facility]. 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 The patient is status post palliative GJ bypass on 10/29/2023 and presents for systemic therapy with SSA (Sandostatin). Additional Information/Imaging: N/A Is this the first Dotatate PET: No Date of last Dotatate Image: 03-09-25 Ga-68 Dotatate Scan: positive Isotope used: GA-68-/[place] Positive Scan Schedule at place of last (DOS) / [place] or [facility] Negative Scan Schedule at ANY Dotatate site requested Isotope used: [place]/[facility] Copper CU-64 [place]/ GA-68 (NETSPOT) Dotatate Dotatate [id number] ([id number]) Gallium Dotatate (NetSpot) Auth#: no precert Date Range: MD NPI: Member ID: Medicare Site/Contact: Case/Ref#: Notes: Route to: P PET ALARM INSTALLER [facility]08-28-2025 Telephone encounter Note* Telephone Encounter - Hyacinth Mcpherson - 04/21/2025 2:05 PM EDT This form is used for MAIN CAMPUS APPOINTMENTS ONLY. Is this request for a [place] PET scan appointment? Yes: Air Transportation Provider: Hyacinth Wheeler Who do we call to schedule this appointment? Patient Requesting Staff Rahat Adair Area Code + Phone/Pager: [phone] PET Orders (A delay in scheduling will result if the orders are not present at time of review): Internal ADDITIONAL ACTION MAY BE REQUIRED IF PATIENTS OON INSURANCE OR SELF PAY COVERAGE HAS NOT BEEN CLEARED FOR REQUESTED APPOINTMENT. Scheduling: Specific date/time (Requests should be greater then 10 buisness days): Week of 05/23/25 What account will this PET appointment be linked to? P/F Type of PET: Oncology: Are there additional diagnostic CT scans required to be done at time of PET scan? No Is the request for a PET MR ? No What account will diagnostic testing appointment be linked to? P/F Will the patient need anesthesia? NO Send requests to P COORD REVIEW [facility]08-28-[facility] History of Present illness Narrative* Rahat Adair APRN.CNP - 04/21/2025 1:35 PM EDT Images from the original note were not included. NAME: Aisha Julien CLINIC NO.: [id number] DATE OF SERVICE: April 21, 2025 (Jun) Some elements in this clinic note that are critical to medical decision making have been carefully reviewed and included from a prior clinic note dated: March 10, 2025 (Raoul) Referring Provider: Dr. Cleveland De León Additional Clinicians involved in Aisha Julien's care: DIAGNOSIS: Neuroendocrine tumor (SB - Distal Ileum) - Metastatic CASE SUMMARY / ASSESSMENT: 69 year old man with metastatic [...] I am unsure if this is related toactive disease versus single episode. Additionally has a 1.7 cm irregularly marginated nodular massin the left apical lung that I'd like to get a PET scan for to delineate better. - PET showed non-avidity of this lesion in June 2024. Dotatate PET November 2024 appears to show no evidence of progressive disease. SUMMARIZED PLAN OF CARE: C20 Sandostatin today C21 Sandostatin in 3 weeks Labs, no clinician RTC in 6 weeks labs Clinician and Sandostatin C22 Repeat Neuroendocrine PET prior to C22 - Scheduled AI Assisted A/P: 1. 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 - Continue octreotide therapy; next dose scheduled in 3 weeks. - PET scan ordered to be completed within the next 6 weeks, prior to cycle 22. - Follow-up visit scheduled after PET scan to review results and continue treatment. - Dr. Anaya to review scan results prior to next visit; if unavailable, another provider will reviewresults with Dr. Anaya prior to patient visit. 4. 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 - Continue current management. 5. 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 Gastrointestinal hemorrhage, unspecified gastrointestinal hemorrhage type (K92.2) Prior GI bleeding episode secondary to tumor was treated with endoscopic intervention; no further bleeding reported since intervention. - Continue monitoring for any recurrence of GI bleeding. 7. Encounter for antineoplastic chemotherapy and immunotherapy (Z51.11) Patient is currently receiving octreotide therapy as part of ongoing treatment for metastatic neuroendocrine tumors. - Continue octreotide therapy as scheduled. CASE HISTORY: Reverse Chronological Order 03/09/2025 - Neuroendocrine PET: PRIMARY DISEASE SITE: * Grossly stable tracer avid distal ileum lesion. ANILA DISEASE: * Grossly stable tracer avid mesenteric and retroperitoneal lymphadenopathy. METASTATIC DISEASE: * Grossly stable to minimally decreased uptake metastatic disease in the duodenum, left supraclavicular lymphadenopathy and pelvic soft tissue metastasis. * Redemonstration of diffuse tracer avid pancreatic uptake. ADDITIONAL FINDINGS: * Stable left apical nodular opacity with mild uptake. Krenning Score: 4 12/08/2024 - Neuroendocrine PET: Since 08/03/2024, PRIMARY [...] stigmata of active or recent GI bleeding. Ilealmass not encountered. 10/31/2024-11/03/2024 - Admitted at [place] with GI bleed 10/28/2024 - Palliative GJ [...] urinary bladder wall. 10/28/2024 - ER at [facility] for cough, black emesis, and black tarry stools 08/13/2024 - Increased Sandostatin to q 3 weeks 08/03/2024 - Neuroendocrine PET: PRIMARY DISEASE SITE: Slight increased size of distal ileum metabolically avid lesion with adjacentpartially calcified implant representing biopsy-proven neuroendocrine tumor. ANILA [...] and/or Dotatate PET/CT, as clinically indicated. No hyperm etabolic/pathologic lymphadenopathy. MUSCULOSKELETAL: 6.9 cm RIGHT gluteus carole [...] are appreciated as above. Given the patient's history,the possibility of osseous metastases is not excluded. [...] Laparotomy, gastrojejunostomy (Bilroth II reconstruction), takedown of gastrocutaneousfistula, and placement of distal feeding tube 10/29/2023-11/07/2023 - Admitted at [place] - observation after surgery 10/01/2023 - CT [...] which could be related to osteopenia or infiltrativemetastatic disease (and could be further differentiated with Dotatate PET-CT). 08/28/2023 - CT Brain: No CT evidence of acute intracranial process 08/28/2023 - CXR: No evidence of active disease. 08/28/2023-09/05/2023 - Admitted at [place] - Patient sent by surgery with failure [...] indeterminate hepatic hypodensities. 08/07/2023-08/17/2023 - Admitted at [place] - Nausea & Vomiting: Sent by GI for weight loss and unable to keep anything down since June. 07/25/2023 - EGD with biopsy: - Duodenal mass - [facility] - Dr. Linder 07/24/2023 - CT A/P: at [facility] A mass is noted in the region [...] with abdominal pain onset 1 week prior HPI: Updated Visit, April 21, 2025: Aisha returns today for a follow-up. He reports no significant changes since the last visit and has started taking a new multivitamin. He notes improvement in visual adjustment to light after discontinuing finasteride. He denies new episodes of diarrhea or flushing but describes his stools as runny. He reports no new bleeding episodes since a previous intervention to address bleeding around the pancreatic tumor. He reports that his blood pressure has been stable, though it was elevated today due to taking his medication later than usual. He remains active and is eating well, though he notes a decrease in appetite. Recent labs show improvement in hemoglobin levels, currently at 11.5 g/dL, up from previous values of 10.1, 9.4, and 7.9 g/dL. White blood cell count and platelets are within normal limits. A recent PET scan showed favorable results. Updated Visit, March 10, 2025: Patient with a history of neuroendocrine tumor of the distal ileum, currently managed with octreotide, presents for follow-up. He recently experienced significant bleeding and was unable to move, requiring transport to the hospital. He was initially taken to [facility] and then [facility]. An EGD revealed type 2 gastric varices, and he underwent a procedure to address the bleeding, which included the application of a hemostatic agent. He was discharged on February 27. He reports severe diarrhea, which he attributes to his current medication. He also notes fluctuations in his blood pressure, with readings as low as 110 mmHg, causing him to feel unwell. He monitors his blood pressure daily and adjusts his medication accordingly. Recent PET scan results show stable disease with no significant changes in the pancreas, mesentery,retroperitoneal lymphadenopathy, or duodenum. There is decreased uptake in the left clavicle region. (No Date) PET Scan: Stable uptake in the pancreas, distal ileum, mesentery, and retroperitoneal lymph nodes. Decreased uptake noted in the duodenum and left supraclavicular region. (No Date) CTA of the Abdomen: No new abnormalities identified. (No Date) Ultrasound of the Liver: Hepatic vasculature with appropriately directed flow, high-resistance waveforms in the hepatic arteries, no new hepatic lesions, trace ascites. (02/23) EGD: Normal jejunum, acquired duodenal stenosis, normal size gastric pouch, gastrojejunal anastomosis with edema, gastritis, normal esophagus, type 2 gastric varices noted to be the source ofbleeding. Updated Visit, January 20, 2025: Aisha Julien returns for scheduled follow-up and Sandostatin. His last PET scan was on 12/08 with his treatment he states that ever since his color vision is off. He color white looks yellow. He hadhis normal eye exam which was normal. He [...] fevers, chills, night sweats or signs/symptoms of infecti on. He denies any bone pain. He is [...] He was seen in the ER at [facility] for a cough, black emesis, and black tarry stools. He had a palliative GJ bypass on 10/28/2024. He was then admitted at [place] for the GI bleed, scopes did not [...] abdominopelvic metastases. His Chromogranin A has also increasedfrom 05/2024-06/2024. He endorses new occasional abdominal pain. [...] exposure due to work. He was never acigarette smoker, does smoke the occasional cigar and [...] subsequently fell. He reports feeling nauseous prior tosyncope. He was found to be hypotensive. He [...] metastases in 06/2023. He had an open GJbypass on 10/28. He would like to start systemic therapy (Sandostatin) here in [place]. Incidents of nausea after eating got more frequent over the past two years prior to diagnosis. He has a PICC line currently, PEG-J tube did not work well for him. He is not in pain now, a littlesore on site of stitches. Prior History from Dr. Cleveland De León's Progress Note on 11/17/2023: Assessment & Diagnosis: [...] PICC line since no TPN or IV hydrationwill be needed. Referral to medical oncology to consider systemic therapy (Sandostatin) Return to surgery clinic as needed REVIEW OF SYSTEMS Per HPI and otherwise negative by full review of organ systems. Respiratory: (-) shortness of breath Gastrointestinal: (+) loose stools, (-) gastrointestinal bleeding Musculoskeletal: (-) pain Skin: (-) flushing ECOG PERFORMANCE STATUS: 1 PHYSICAL EXAMINATION: Vitals: BP 166/80 Pulse 96 Temp (Src) 98.1 (Temporal) Resp 16 Ht 5' 9.488 (1.77m) Wt 169lb 8.5 oz (76.9kg) SpO2 99% BMI 24.69 kg/(m^2). Body surface area is 1.94 meters [...] petechiae. ALLERGIES: ALLERGIES No Known Allergies MEDICATIONS: MULTI-VITAMIN ORAL Take by mouth. pantoprazole DR (PROTONIX) 40 mg tablet Take 1 tablet by mouth once daily. ferrous sulfate (IRON) 325 mg (65 mg iron) tablet Take 30 mg by mouth once daily. MULTIVITAMIN ORAL Take by mouth. losartan (COZAAR) 100 mg tablet Take 100 mg by mouth once daily. (Patient not taking: Reported on 04/21/2025) LABORATORY VALUES: WBC (k/uL) Date Value 04/21/2025 4.70 RBC (m/uL) Date Value 04/21/2025 4.04 (L) Hemoglobin (g/dL) Date Value 04/21/2025 11.5 (L) Hematocrit (%) Date Value 04/21/2025 36.2 (L) MCV (fL) Date Value 04/21/2025 89.6 MCH (pg) Date Value 04/21/2025 28.5 MCHC (g/dL) Date Value 04/21/2025 31.8 RDW-CV (%) Date Value 04/21/2025 15.5 (H) Platelet Count (k/uL) Date Value 04/21/2025 261 MPV (fL) Date Value 04/21/2025 10.1 Glucose (mg/dL) Date Value 04/21/2025 105 (H) BUN (mg/dL) Date Value 04/21/2025 16 Creatinine (mg/dL) Date Value 04/21/2025 1.13 Sodium (mmol/L) Date Value 04/21/2025 139 Potassium (mmol/L) Date Value 04/21/2025 4.5 Chloride (mmol/L) Date Value 04/21/2025 107 CO2 (mmol/L) Date Value 04/21/2025 19 (L) Protein, Total (g/dL) Date Value 04/21/2025 6.9 Albumin (g/dL) Date Value 04/21/2025 4.1 Calcium, Total (mg/dL) Date Value 04/21/2025 8.9 Alkaline Phosphatase (U/L) Date Value 04/21/2025 224 (H) Bilirubin, Total (mg/dL) Date Value 04/21/2025 0.4 AST (U/L) Date Value 04/21/2025 33 ALT (U/L) Date Value 04/21/2025 13 Triglyceride (mg/dL) Date Value 09/02/2023 70 DIAGNOSIS: (C7B.8) Metastatic malignant neuroendocrine tumor to lymph node (HCC) (primary encounterdiagnosis) Plan: NM PET/CT NEUROENDOCRINE WHOLE BODY IMAGING (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) Functional diarrhea (C25.7) Malignant neoplasm of other parts of pancreas (HCC) (I86.4) Gastric varices (K92.2) Gastrointestinal hemorrhage, unspecified gastrointestinal hemorrhage type (Z51.11, Z51.12) Encounter for antineoplastic chemotherapy and immunotherapy PAST MEDICAL HISTORY Diagnosis Date Essential hypertension [...] which included preparing to see the patient, [id number] patient care, completing clinical documentation, obtaining and/or reviewing separately obtained history, performing a medically appropriate examination, counseling and educating the patient/family/caregiver, ordering medications, tests, or procedures, independently interpreting results (not separately reported), communicating results to the patient/family/caregiver, and care coordination (not separately reported). Rahat Adair APRN, FLIGHT SERVICE AGENT-C, OCN Hematology and Oncology Services Provided at: [place], [place] CC: Cleveland De León [id number] [id number] Rene Cannon MD, MD [address] [facility] [id number] documented in this encounterMansfield Hospital08-20-2025 History of Present illness Narrative* Rene Cannon MD - 04/13/2025 9:30 AM EDT Images from the original note were not included. Patient ID: Aisha Julien is a 69 y.o. male who presents for: Hypertension Patient is here for follow-up of elevated blood pressure. He is not exercising and is adherent to alow-salt diet. Blood pressure is well controlled at home. Cardiac symptoms: none. Patient denies chest pain, dyspnea, irregular heart beat, lower extremity edema, and palpitations. Cardiovascular risk factors: advanced age (older than 55 for men, 65 for women), hypertension, male gender, sedentary lifestyle, and smoking/ tobacco exposure. Use of agents associated with hypertension: none. History of target organ damage: chronic kidney disease. Benign Prostatic Hypertrophy Patient complains of lower urinary tract symptoms. He reports frequency, incomplete emptying, nocturia four times a night, and urgency. Onset of symptoms was several years ago and was gradual in onset. He has no personal history of prostate cancer. He denies no complicating symptoms. He states he stopped the finasteride because he thought it was affecting his eyes. Objective The patient is pleasant and in [...] contact and speech is clear. Appropriate affect. 11/23/2024 10:44 AM 11/09/2024 2:57 PM 10/19/2024 9:32 AM 04/27/2024 9:29 AM Vitals BMI 24.64 kg/m2 24.6 kg/m2 24.6 kg/m2 BSA (m2) 1.94 m2 1.94 m2 1.94 m2 Systolic 120 126 148 Diastolic 74 72 86 Heart Rate 76 82 86 SpO2 99 % 97 % 97 % Height (in) 5' 9.5 5' 9.5 5' 9.5 Weight (lb) 169.25 169 169 Visit Report Report Report Report Report No Known Allergies Current Outpatient Medications on File Prior to Visit Medication Sig Dispense Refill finasteride (Proscar) 5 MG tablet Take 1 tablet (5 mg) by mouth Daily Do not crush, chew, or split.90 tablet 3 losartan (Cozaar) 100 MG tablet Take 1 tablet (100 mg) by mouth Daily 90 tablet 1 octreotide (SandoSTATIN) 20 MG injection Inject 20 mg into the shoulder, thigh, or buttocks See administration instructions Take to provider office for and inject 20mg IM every 3 weeks as directe [] pantoprazole (ProtoNix) 40 MG EC tablet Take 40 mg by mouth in the morning. No current facility-administered medications on file prior to visit. 1. Benign essential hypertension Chronic problem, stable, to goal. - losartan (Cozaar) 100 MG tablet; Take 1 tablet (100 mg) by mouth Daily Dispense: 90 tablet; Refill: 1 2. Hypertensive nephropathy Comorbid condition demonstrating end-organ damage from the hypertension and monitor longitudinally 3. Stage 3a chronic kidney disease (CMS-HCC) Defines the hypertensive nephropathy 4. Microalbuminuria Chronic problem, defining an aspect the nephropathy, with significant risk, uncertain progression requiring longitudinal monitoring, and moderate decision making. Microalbuminuria describes a moderate increase in the level of urine albumin. Normally, the kidneysfilter albumin, so if the kidney leaks small amounts of albumin into the urine then it is a indicator of chronic kidney disease. Microalbuminuria is an independent indicator of increased cardiovascular risk among individuals andtherefore can be used for risk stratification for cardiovascular disease. 5. Mixed hyperlipidemia Chronic problem and monitor longitudinally. 6. Alcoholism (HCC) He continues to attempt to stop and has relapses. 7. Overweight Please Note: Portions of this chart may have been created using voice recognition software. Occasionally a wrong-word or sound-like substitutions may have occurred due to inherent limitations of the voice recognition software. Please read the chart carefully and recognize, using context, where the substitutions may have occurred. documented in this encounterNorthwest Medical [id number] History of Present illness Narrative* Chapin Simon, - 03/30/2025 1:30 PM EDT Images from the original note were not included. Assessment/Plan Diagnoses and all orders for this visit: Visual color changes - Unclear source. Pt has been under the treatment of heme/onc with Octreotide for over a year. His symptoms seem to fall outside of its side effect profile. Will check a Vitamin A level as he has hada significant weight loss and malnourishment. Bilateral posterior capsular opacification - PCO OU: (Posterior Capsule Opacification) Can be observed without intervention if PCO is not visually significant. Nd:YAG laser capsulotomy may be considered if impairment of vision rises to a level that dose not meet the patient's functional needs or interferes with activities of daily living. Risks, benefits and alternatives to the procedure will be reviewed. If the patient has undergone Nd:YAG laser capsulotomy, they are to notify their associate loan officer promptly if they have a significant change in symptoms, such as flashes of light (photopsia), an increase in floaters, loss of visual field or decrease in visual acuity. Dry eyes - Dry Eyes OU -- Environmental changes to minimize dryness and exposure and the use of artificial tears were recommended. Blepharitis of upper and lower eyelids of both eyes, unspecified type - Blepharitis, posterior type OU - The patient exhibits inspissated meibomian glands. Warm compresses, lid massage and lid scrubs were recommended. documented in this encounterNorthwest Medical [id number] Instructions* Patient Instructions* Roselyn Leonard MD - 03/10/2025 1:44 PM EDT C18 Sandostatin today C19 Sandostatin in 3 weeks Labs, no clinician RTC in 6 weeks labs Clinician and Sandostatin C20 We discussed your recent hospitalization and bleeding episodes: - You experienced significant bleeding and were hospitalized at [place] and the main campus. During this time, you underwent procedures to address the bleeding, including treatment for gastric varices and a referral to interventional radiology for a TIPS procedure. The bleeding was controlled, and you were discharged on February 27. - Your PET scan results show stable findings with no significant changes. The pancreas remains stable, and there is decreased uptake in the left collarbone area. There are no new hepatic lesions, andonly trace ascites was noted on your liver ultrasound. - You should follow up with a learning design specialist to monitor for any recurrence of bleeding. The closest [facility] gastroenterologists are located in [facility]. It is better to establish care now rather than waiting for another episode. We discussed your current treatment plan: - You received your Sandostatin injection today. The next dose is scheduled in 3 weeks, and we willcontinue with every 3-week dosing for now. - In 6 weeks, you will have labs drawn and receive your next dose. - We plan to repeat your scan prior to cycle 22, which will occur approximately 9 weeks from today.At that time, we may adjust the dosing schedule to a 4-week cycle. We discussed your blood pressure and medications: - You may resume your blood pressure medication, as your blood pressure has returned to normal levels. Monitor your blood pressure daily, and adjust the dose as needed if your readings are too low (e.g., below 110). - Continue taking Sandostatin as prescribed, despite the diarrhea you are experiencing, as it is important for managing your condition. Next steps: - Follow up with a learning design specialist to monitor for potential recurrence of bleeding. - Continue monitoring your blood pressure daily and adjust your medication as needed. - Return in 6 weeks for labs and your next Sandostatin injection. Please contact our office if you experience any new or worsening symptoms, including bleeding, severe diarrhea, or significant changes in your health. documented in this encounterMansfield Hospital2025 NoteUniversity Hospitals Samaritan [facility]2025 History of Present illness Narrative* Roselyn Leonard MD - 03/10/2025 1:06 PM EDT Images from the original note were not included. NAME: Aisha Julien CLINIC NO.: [id number] DATE OF SERVICE: March 10, 2025 (Raoul) Some elements in this clinic note that are critical to medical decision making have been carefully reviewed and included from a prior clinic note dated: January 20, 2025 (Francisco) Referring Provider: Dr. Cleveland De León Additional Clinicians involved in Aisha Julien's care: DIAGNOSIS: Neuroendocrine tumor (SB - Distal Ileum) - Metastatic CASE SUMMARY / ASSESSMENT: 69 year old man with metastatic [...] I am unsure if this is related toactive disease versus single episode. Additionally has a 1.7 cm irregularly marginated nodular massin the left apical lung that I'd like to get a PET scan for to delineate better. - PET showed non-avidity of this lesion in June 2024. Dotatate PET November 2024 appears to show no evidence of progressive disease. SUMMARIZED PLAN OF CARE: C18 Sandostatin today C19 Sandostatin in 3 weeks Labs, no clinician RTC in 6 weeks labs Clinician and Sandostatin C20 Repeat Neuroendocrine PET prior to C22 AI Assisted A/P: 1. 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 - Continue current treatment regimen. - Monitor with repeat scan prior to cycle 22. 2. 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 - Continue current treatment regimen. - Monitor with repeat scan prior to cycle 22. 3. Iron deficiency anemia due to chronic blood loss (D50.0) Likely secondary to recent gastrointestinal hemorrhage. - Monitor hemoglobin levels. - Consider iron supplementation if necessary. 4. Gastrointestinal hemorrhage, unspecified gastrointestinal hemorrhage type (K92.2) Recent episode requiring hospitalization and intervention. - Follow up with gastroenterology for further evaluation and management. - Referral to interventional radiology for potential TIPS procedure. 5. 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 - Continue current treatment regimen. - Monitor with repeat scan prior to cycle 22. 6. Gastritis, presence of bleeding unspecified, unspecified chronicity, unspecified gastritis type (K29.70) Noted on recent EGD with edema at the gastrojejunal anastomosis. - Continue current treatment regimen. - Monitor for any signs of recurrent bleeding. 7. Gastric varices (I86.4) Identified as the source of recent gastrointestinal hemorrhage. - Referral to interventional radiology for potential TIPS procedure. - Monitor for any signs of recurrent bleeding. 8. Retroperitoneal lymphadenopathy (R59.0) Stable on recent PET scan with no significant changes noted. - Continue current treatment regimen. - Monitor with repeat scan prior to cycle 22. 9. Functional diarrhea (K59.1) Ongoing issue, possibly exacerbated by current medications. - Continue current treatment regimen. - Monitor for any changes in symptoms. 10. Encounter for antineoplastic chemotherapy and immunotherapy (Z51.11) Currently receiving Sandostatin [place] every 3 weeks. - Administer Sandostatin [place] today. - Schedule next dose in 3 weeks, followed by another dose in 6 weeks. - Plan to delay cycle 22 to a 4-week interval. 11. Personal history of other malignant neoplasm of small intestine (Z85.068) Stable on recent PET scan with no significant changes noted. - Continue current treatment regimen. - Monitor with repeat scan prior to cycle 22. CASE HISTORY: Reverse Chronological Order 03/09/2025 - Neuroendocrine PET: PRIMARY DISEASE SITE: * Grossly stable tracer avid distal ileum lesion. ANILA DISEASE: * Grossly stable tracer avid mesenteric and retroperitoneal lymphadenopathy. METASTATIC DISEASE: * Grossly stable to minimally decreased uptake metastatic disease in the duodenum, left supraclavicular lymphadenopathy and pelvic soft tissue metastasis. * Redemonstration of diffuse tracer avid pancreatic uptake. ADDITIONAL FINDINGS: * Stable left apical nodular opacity with mild uptake. Krenning Score: 4 12/08/2024 - Neuroendocrine PET: Since 08/03/2024, PRIMARY [...] stigmata of active or recent GI bleeding. Ilealmass not encountered. 10/31/2024-11/03/2024 - Admitted at [place] with GI bleed 10/28/2024 - Palliative GJ [...] urinary bladder wall. 10/28/2024 - ER at [facility] for cough, black emesis, and black tarry stools 08/13/2024 - Increased Sandostatin to q 3 weeks 08/03/2024 - Neuroendocrine PET: PRIMARY DISEASE SITE: Slight increased size of distal ileum metabolically avid lesion with adjacentpartially calcified implant representing biopsy-proven neuroendocrine tumor. ANILA [...] and/or Dotatate PET/CT, as clinically indicated. No hyperm etabolic/pathologic lymphadenopathy. MUSCULOSKELETAL: 6.9 cm RIGHT gluteus carole [...] are appreciated as above. Given the patient's history,the possibility of osseous metastases is not excluded. [...] Laparotomy, gastrojejunostomy (Bilroth II reconstruction), takedown of gastrocutaneousfistula, and placement of distal feeding tube 10/29/2023-11/07/2023 - Admitted at [place] - observation after surgery 10/01/2023 - CT [...] which could be related to osteopenia or infiltrativemetastatic disease (and could be further differentiated with Dotatate PET-CT). 08/28/2023 - CT Brain: No CT evidence of acute intracranial process 08/28/2023 - CXR: No evidence of active disease. 08/28/2023-09/05/2023 - Admitted at [place] - Patient sent by surgery with failure [...] indeterminate hepatic hypodensities. 08/07/2023-08/17/2023 - Admitted at [place] - Nausea & Vomiting: Sent by GI for weight loss and unable to keep anything down since June. 07/25/2023 - EGD with biopsy: - Duodenal mass - [facility] - Dr. Linder 07/24/2023 - CT A/P: at [facility] A mass is noted in the region [...] with abdominal pain onset 1 week prior HPI: Updated Visit, March 10, 2025: Patient with a history of neuroendocrine tumor of the distal ileum, currently managed with octreotide, presents for follow-up. He recently experienced significant bleeding and was unable to move, requiring transport to the hospital. He was initially taken to [facility] and then transferred to the [facility] for further evaluation. An EGD revealed type 2 gastric varices, and he underwent a procedure to address the bleeding, which included the application of a hemostatic agent. He was discharged on February 27. He reports severe diarrhea, which he attributes to his current medication. He also notes fluctuations in his blood pressure, with readings as low as 110 mmHg, causing him to feel unwell. He monitors his blood pressure daily and adjusts his medication accordingly. Recent PET scan results show stable disease with no significant changes in the pancreas, mesentery,retroperitoneal lymphadenopathy, or duodenum. There is decreased uptake in the left clavicle region. (No Date) PET Scan: Stable uptake in the pancreas, distal ileum, mesentery, and retroperitoneal lymph nodes. Decreased uptake noted in the duodenum and left supraclavicular region. (No Date) CTA of the Abdomen: No new abnormalities identified. (No Date) Ultrasound of the Liver: Hepatic vasculature with appropriately directed flow, high-resistance waveforms in the hepatic arteries, no new hepatic lesions, trace ascites. (02/23) EGD: Normal jejunum, acquired duodenal stenosis, normal size gastric pouch, gastrojejunal anastomosis with edema, gastritis, normal esophagus, type 2 gastric varices noted to be the source ofbleeding. Updated Visit, January 20, 2025: Aisha Julien returns for scheduled follow-up and Sandostatin. His last PET scan was on 12/08 with his treatment he states that ever since his color vision is off. He color white looks yellow. He hadhis normal eye exam which was normal. He [...] fevers, chills, night sweats or signs/symptoms of infecti on. He denies any bone pain. He is [...] He was seen in the ER at [facility] for a cough, black emesis, and black tarry stools. He had a palliative GJ bypass on 10/28/2024. He was then admitted at [place] for the GI bleed, scopes did not [...] abdominopelvic metastases. His Chromogranin A has also increasedfrom 05/2024-06/2024. He endorses new occasional abdominal pain. [...] exposure due to work. He was never acigarette smoker, does smoke the occasional cigar and [...] subsequently fell. He reports feeling nauseous prior tosyncope. He was found to be hypotensive. He [...] metastases in 06/2023. He had an open GJbypass on 10/28. He would like to start systemic therapy (Sandostatin) here in [place]. Incidents of nausea after eating got more frequent over the past two years prior to diagnosis. He has a PICC line currently, PEG-J tube did not work well for him. He is not in pain now, a littlesore on site of stitches. Prior History from Dr. Cleveland De León's Progress Note on 11/17/2023: Assessment & Diagnosis: [...] PICC line since no TPN or IV hydrationwill be needed. Referral to medical oncology to consider systemic therapy (Sandostatin) Return to surgery clinic as needed REVIEW OF SYSTEMS Per HPI and otherwise negative by full review of organ systems. Gastrointestinal: (+) gastrointestinal bleeding, (+) diarrhea ECOG PERFORMANCE STATUS: 1 PHYSICAL EXAMINATION: Vitals: BP 146/73 Pulse 78 Temp (Src) 97.2 (Temporal) Resp 18 Wt 170 lb 6.7 oz (77.3kg) SpO2 99% Body surface area is 1.95 meters squared. [...] Take 100 mg by mouth once daily. ferrous sulfate (IRON) 325 mg (65 mg iron) tablet Take 30 mg by mouth once daily. MULTIVITAMIN ORAL Take by mouth. pantoprazole DR (PROTONIX) 40 mg tablet Take 1 tablet by mouth once daily. LABORATORY VALUES: WBC (k/uL) Date Value 03/10/2025 6.89 RBC (m/uL) Date Value 03/10/2025 3.50 (L) Hemoglobin (g/dL) Date Value 03/10/2025 10.1 (L) Hematocrit (%) Date Value 03/10/2025 32.0 (L) MCV (fL) Date Value 03/10/2025 91.4 MCH (pg) Date Value 03/10/2025 28.9 MCHC (g/dL) Date Value 03/10/2025 31.6 RDW-CV (%) Date Value 03/10/2025 15.3 (H) Platelet Count (k/uL) Date Value 03/10/2025 348 MPV (fL) Date Value 03/10/2025 9.3 Glucose (mg/dL) Date Value 03/10/2025 150 (H) BUN (mg/dL) Date Value 03/10/2025 9 Creatinine (mg/dL) Date Value 03/10/2025 1.02 Sodium (mmol/L) Date Value 03/10/2025 137 Potassium (mmol/L) Date Value 03/10/2025 4.3 Chloride (mmol/L) Date Value 03/10/2025 108 (H) CO2 (mmol/L) Date Value 03/10/2025 19 (L) Protein, Total (g/dL) Date Value 03/10/2025 6.3 Albumin (g/dL) Date Value 03/10/2025 3.8 (L) Calcium, Total (mg/dL) Date Value 03/10/2025 8.6 Alkaline Phosphatase (U/L) Date Value 03/10/2025 177 (H) Bilirubin, Total (mg/dL) Date Value 03/10/2025 0.7 AST (U/L) Date Value 03/10/2025 23 ALT (U/L) Date Value 03/10/2025 14 Triglyceride (mg/dL) Date Value 09/02/2023 70 DIAGNOSIS: (C7B.8) 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 (HCC) (primary encounterdiagnosis) (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) Iron deficiency anemia due to chronic blood loss (K92.2) Gastrointestinal hemorrhage, unspecified gastrointestinal hemorrhage type (C25.7) Malignant neoplasm of other parts of pancreas (HCC) (K29.70) Gastritis, presence of bleeding unspecified, unspecified chronicity, unspecified gastritistype (I86.4) Gastric varices (R59.0) Retroperitoneal lymphadenopathy (K59.1) Functional diarrhea (Z51.11, Z51.12) Encounter for antineoplastic chemotherapy and immunotherapy (Z85.068) Personal history of other malignant neoplasm of small intestine PAST MEDICAL HISTORY Diagnosis Date Essential hypertension [...] which included preparing to see the patient, [id number] patient care, completing clinical documentation, obtaining and/or reviewing separately obtained history, performing a medically appropriate examination, counseling and educating the patient/family/caregiver, ordering medications, tests, or procedures, independently interpreting results (not separately reported), communicating results to the patient/family/caregiver, and care coordination (not separately reported). CC: Cleveland De León [id number] [facility] [id number] Rene Cannon MD, MD [address] [facility] [id number] documented in this encounterMansfield Hospital07-16-2025 History of Present illness Narrative* Henrik Pinto, RT(R) - 03/09/2025 8:00 AM EDT RADIOLOGY SERVICE PROGRESS NOTE SERVICE DATE: 03/09/2025 SERVICE TIME: 8:48 AM PATIENT IDENTITY VERIFICATION COMPLETED USING TWO [...] PATIENT PRESENTS WITH AN IMPLANTABLE OR ATTACHED [employer]: No CREATININE: Creatinine Date Value Ref Range Status 02/27/2025 1.14 0.73 - 1.22 mg/dL Final 02/26/2025 1.10 0.73 - 1.22 mg/dL Final 02/26/2025 1.13 0.73 - 1.22 mg/dL Final Estimated Glomerular Filtration Rate Date Value Ref Range Status 02/27/2025 70 >=60 mL/min/1.73m Final Comment: Estimated Glomerular Filtration [...] accurately reflect actual GFR. P.O.C.T. RESULTS: N/A March 09, [address] PERFORMED: No IV SITE: Ambulatory: A peripheral IV was started in the Right hand with a Angio cath: 24 gauge. POST EXAM PIV STATUS: Discontinued PROCEDURE TYPE: NM INJECT: DOTATATE PET. 4.4 mCi [id number]. Administered By: ED . No other medications given.. ADMINISTRATION TIME: 846 PATIENT DISCHARGED TO: Ambulatory patient, left OR department area. Is this a therapy: No A Diagnostic radioactive procedure has taken place, with no further precautions necessary other than routine body substance precautions. More information regarding radiation safety can be found usingthis link: [email or web address] SIGNATURE: RT Keegan(R) PATIENT NAME: Aisha Julien DATE: March 09, 2025 TIME: 8:48 AM PAGER/CONTACT #: documented in this encounterMansfield Hospital07-16-2025 [facility]07-06-2025 [facility]07-06-2025 NoteHNO ID: [id number] Author: LALO HAMPTON DO Service: General Internal Medicine Author Type: Resident Type: Progress Notes Filed: 02/27/2025 18:40 Note Text: [facility]University [facility] NoteUniversity [facility] 02-[facility]-2025 NoteUniversity [facility]-2025 NoteUniversity [facility]07-04-2025 NoteHNO ID: [id number] Author: LORI STEEL MD Service: Critical Care Author Type: Resident Type: Progress Notes Filed: 02/25/2025 16:16 Note Text: Attestation signed by Loir Steel MD at 02/25/2025 4:16 PM [facility] [place] NOTE OF PERSONAL INVOLVEMENT IN CARE I have seen and examined the patient, reviewed the progress note obtained and documented by the resident. Please refer to my note from the same date. MICU PROGRESS NOTE WITH COORD CARE SERVICE DATE: 02/25/2025 Admission Date: 02/23/2025 Day #: 3 in the MICU. HPI: Summarized through review of available medical records, and patient/family interview. 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 On sandostatin, C14 on 12/09/2024. - Hx of hemetemesis/melena. Unremarkable colonoscopy and small bowel enteroscopy from 10/2024 - CKD3a - HTN - BPH Mr. Julien presented to ED at [facility] for hematemesis and hematochezia. Patient noted that on Friday morning he had abdominal pain followed by episodes of bright red stool, when he got off the toilet he also had bright red vomiting. Patient had a total of 2 episodes of bright red vomiting and 4-5 bloody bowel movements. Patient felt clammy, dizzy, very cold at home. Patient tried to rest at home however by 9 PM patient did not feel well and went to outside hospital ED. Patient noted that he was given some fluids. [address] And a CT scan was done. Patient did report having a bloody bowel movement before coming to [place] ICU. Patient does report drinking 8 beers on Friday. Patient does endorse heavy drinking, has drank 8-10 beers a day for the past 50 years. Patient does not smoke. Patient does not take home medications. He only takes losartan when his blood pressure is high. 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 Overnight: 6.9 on CBC, ABG Hb 9.1, transfusion stopped. On octeriode. No levo started. 1 tarry BM. Assessment and plan: GI #GIB 2/2 ectopic varix #At risk for alc withdrawal #Alc use disorder - Patient presented with hematemesis and hematochezia - Hb at 9.9 from 10.5 13 days ago - Has had one episode of hematochezia prior to [facility] admission today - No abd pain - Doesn't not take home medications/ otc -S/p EGD on 02/23 with injected lesion that is the ectopic gastric varix from the site of gastrojejunal anastomosis resulting in slow flow of blood from this region. Intubated and a line was placed in endoscopy. CTA was done and IR was consulted. No bleeding was noted on CTA and IR recommended no further intervention. Hb from 9.9 to 8 and 1 unit pRBS ordered. Octreotide ordered. - 02/24: Patient extubated. GI at [place] discussed case with GI main and patient is at high risk of re-bleeding and GIB 2/2 gastric lesion is likely to be an ectopic varix, at high risk of rebleeding and Dr. Avery to attempt endoscopic glue or embolization. PLAN: - GI consulted - Transfer to [facility] - Cont with octreotide for 72 hours - Transfusion if hb 7, actively bleeding, or symptomatic - IV PPI - 2 large bore IVs - Okay for clears - CBC q8 - CIWA protocol - Advise alc cessation - Monitor for alc withdrawal and low threshold to start phenobarb Renal/ Electrolytes: #ENEDINA on CKD - Cr 1.65 on admission likely pre-renal given hx of vomiting and frequent BMS - IVF given in OSH ED PLAN: - Trend RFTs Pulmonary: - Extubated on 02/24 DVT ppx: Contraindicated- bleeding GI ppx: IV PPI Pt seen and discussed with Dr Steel and RN No Patient Care Coordination Note on file. Active Hospital Problems Diagnosis Date Noted UGIB (upper gastrointestinal bleed) 02/23/2025 ENEDINA (acute kidney injury) (HCC) 02/23/2025 Acute on chronic blood loss anemia 10/31/2024 OBJECTIVE: BP (!) 121/47 Pulse 74 Temp 36.7 ?C (98.1 ?F) (Oral) Resp 16 Ht 176.5 cm (5' 9.5 ) Wt 77.6 kg (171 lb 1.2 oz) SpO2 97% BMI 24.90 kg/m? Vital signs reviewed. NET FLUID BALANCE Intake/Output Summary (Last 24 hours) at 02/25/2025 1607 Last data filed at 02/25/2025 1558 Gross per 24 hour Intake 1278.6 ml Output 501 ml Net 777.6 ml MEDICATIONS Current Facility-Administered Medications Medication Dose Route Frequency pantoprazole 40 mg injection (PROTONIX) 40 mg INTRAVENOUS BID AC (0600/1600) thiamine 200 mg injection 200 mg INTRAVENOUS q 8 H Followed by [START ON 02/26/2025] thiamine 100 mg tab(s) (VITAMIN B1) 100 mg ORAL/FEEDING TUBE TID NaCl 0.9% iv flush bag 20 mL INTRAVENOUS PRN octreotide 500 mcg in NaCl 0.9% 100 mL (SandoSTATIN) 50 mcg/hr INTRAVENOUS CONTINUOUS INFUSIONS octreotide, Last Rate: 50 mcg/hr (02/25/25 15 (more content not included)...[id number] NoteHNO ID: [id number] Author: CLARICE NICHOLS MD Service: Hospital Medicine Author Type: Resident Type: Plan of Care Filed: 02/25/2025 17:33 Note Text: Attestation signed by Clarice Nichols MD at 02/25/2025 5:33 PM Clarice Nichols MD Plan of care PATIENT NAME: Aisha Julien SERVICE DATE: 02/25/2025 SERVICE TIME: 3:20 PM HOSPITAL DAY: 2 PRIMARY CARE PHYSICIAN: Rene Cannon MD, MD CODE STATUS: Code Status: Full Code Days: [phone], please page Ania Gonzalez MD for patient issues either through [employer] or [employer]. Nights: [phone], please page [facility] night coverage pager [phone] for Team 1,2 AND3. 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 INTERVAL HPI / Subjective: Today is day # 2, patient Transferred from ICU to regular nursing floor Hemodynamically stable CBC with stable normocytic anemia BMP pending Physical Exam / Objective: BP (!) 121/47 Pulse 74 Temp 36.7 ?C (98.1 ?F) (Oral) Resp 16 Ht 176.5 cm (5' 9.5 ) Wt 77.6 kg (171 lb 1.2 oz) SpO2 97% BMI 24.90 kg/m? General Appearance: No acute distress HEENT: EOM's intact Lungs: Clear Heart: Regular rate AND rhythm Abdomen: Soft, Non-tender, and Bowel sounds present Skin: Warm Musculoskeletal: No deformities Neurologic/Psychiatric: Oriented to time, place AND person and No gross focal neurologic deficits Intake/Output Summary (Last 24 hours) at 02/25/2025 1520 Last data filed at 02/25/2025 1100 Gross per 24 hour Intake 1098.6 ml Output 601 ml Net 497.6 ml Labs/Data: CBC: Recent Labs 02/25/25 0636 02/25/25 0247 02/25/25 0045 02/24/25 2009 02/24/25 1521 02/24/25 1119 02/24/25 0512 02/24/25 0323 WBC 7.67 8.34 10.08 12.03* 15.63* 14.29* 14.51* 14.80* 10.10 HB 8.5* 7.8* 8.3* 8.8* 9.8* 9.0* 8.9* 8.9* 6.3* PLT 140* 134* 137* 148* 166 161 156 151 110* MCV 92.7 90.1 90.6 90.7 90.9 87.6 88.1 87.9 88.7 RDWCV 16.9* 16.9* 17.0* 17.2* 17.2* 17.2* 16.7* 16.8* 16.6* COAG: Recent Labs 02/23/25 1743 INR 1.1 BMP: Recent Labs 02/24/25 0800 02/24/25 0323 02/23/25 1241 GLUC 127* 73* 107* NA 147* 149* 147* K 3.8 2.0* 4.7 CHLOR 121* 130* 120* CO2 14* 8* 13* ANION 12 11 14 BUN 38* 23 42* CREAT 1.72* 0.88 1.65* CHEM: Recent Labs 02/24/25 0800 02/24/25 0323 02/23/25 1241 ALB -- 1.7* 3.4* TPROT -- 2.6* 5.6* CA 7.8* 4.2* 7.9* HEPATIC: Recent Labs 02/24/25 0323 02/23/25 1241 ALKPHOS 53 123* ALT 11 32 AST 12* 43* TBILI 0.4 1.3 CARDIAC: No results for input(s): CKTEST , CKMB , CKMBP , TROPT , PBNP in the last 168 hours. URINALYSIS: Recent Labs 02/24/25 0421 02/23/25 2359 PH 7.37 7.35 Estimated Creatinine Clearance: 41.2 mL/min (A) (based on SCr of 1.72 mg/dL (H)). Medications: Current Facility-Administered Medications Medication Dose Route Frequency pantoprazole 40 mg injection (PROTONIX) 40 mg INTRAVENOUS BID AC (0600/1600) thiamine 200 mg injection 200 mg INTRAVENOUS q 8 H Followed by [START ON 02/26/2025] thiamine 100 mg tab(s) (VITAMIN B1) 100 mg ORAL/FEEDING TUBE TID NaCl 0.9% iv flush bag 20 mL INTRAVENOUS PRN octreotide 500 mcg in NaCl 0.9% 100 mL (SandoSTATIN) 50 mcg/hr INTRAVENOUS CONTINUOUS Assessment and Plan: Active Hospital Problems Diagnosis Date Noted UGIB (upper gastrointestinal bleed) 02/23/2025 ENEDINA (acute kidney injury) (HCC) 02/23/2025 Acute on chronic blood loss anemia 10/31/2024 HOSPITAL COURSE: Aisha Julien is a 69 year old male with PMH of 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 Acute problems: # Upper GI bleeding secondary to ectopic varices at GE junction s/p clipping/injection on 02/23/2025 Presented with hematemesis and hematochezia Required 1 unit of PRBC S/p EGD on 02/23 with evidence of malignant-appearing, intrinsic severe stenosis in (more content not included)...[id number] NoteHNO ID: [id number] Author: LORI STEEL MD Service: Critical Care Author Type: Physician Type: Progress Notes Filed: 02/25/2025 10:52 Note Text: [facility] [place] NOTE OF PERSONAL INVOLVEMENT IN CARE I have seen and examined the patient, reviewed the history and physical examination obtained and documented by the Resident. I have personally performed a face to face assessment of the patient and have personally participated on the ayala components of the history, exam and medical decision making. I have discussed the case and management of the patient's care. The following comments revise or confirm relevant ayala components of the note. Please refer to their note for full details,including a summary of our mutually agreed upon findings, assessment/plan, and recommendations. IMPRESSION/PLAN: Mr. Julien is a 69 year old man with a past medical history significant for metastatic neuroendocrine tumor on Sandostatin s/p palliative GJ bypass (10/2023), CKD 3, and hypertension who was admitted to the MICU on 02/23/2025 for hematemesis. #1 Upper GI bleed secondary to ectopic varices at GJ junction s/p clipping/injection 02/23/2025 #2 Metastatic neuroendocrine tumor on Sandostatin s/p palliative GJ bypass (10/2023) #3 ENEDINA on CKD 3 #4 Alcohol use without history of withdrawal #5 Hypertension He has had maroon stools but has not required transfusion and hemodynamics are appropriate. Will plan for transfer out of the ICU with ultimate goal to transfer to [facility] for advance endoscopic intervention. Neuro: Thiamine. CIWA protocol for now with consideration for phenobarbital if needed. CV: Hold home losartan. Resp: No acute concerns. Renal: ENEDINA in setting of hypovolemia, serial electrolytes, recheck today. GI: IV PPI BID + octreotide. Pending transfer to [facility] as above. Heme: TANDS up to date. Transfuse to target a hemoglobin of 7. Space out CBCs. Endo: No acute concerns. ID: Observing off of antibiotics. Checklist: Glycemic Control: Not requiring insulin GI PPX: PPI DVT PPX: SCDs Diet: Clears Lines: PIV Cho: N/A Code Status: Full code Disposition: Transfer out of ICU This patient has a high probability of sudden, clinically significant deterioration, which requires the highest level of physician preparedness to intervene urgently. I managed/supervised life or organ supporting interventions that required frequent physician assessment. I devoted my full attention to the direct care of this patient for the amount of time indicated below. Time I spent with family or surrogate(s) is included only if the patient was incapable of providing the necessary information or participating in medical decision making. Time devoted to teaching and to any procedures I billed separately is not included. Time spent providing critical care services: 35 minutes. Lori Steel MD 02/25/2025[facility] [id number] NoteHNO ID: [id number] Author: PRATIK WINTERS MD Service: Gastroenterology Author Type: Physician Type: Plan of Care Filed: 02/24/2025 09:43 Note Text: I had a long discussion with the interventional radiology service this morning regarding the patient's anatomy and likely etiology of bleeding. Dr. 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 He also reports that due to unique anatomy, interventional radiology intervention (e.g. BRTO) would be very challenging. Therefore, I believe that most likely cause of bleeding is ectopic varix at the gastrojejunal anastomosis, which has been clipped and injected. The patient has remained stable overnight. However, I believe that this patient requires more definitive management of this condition due to high risk of repeat bleeding. After discussing this case with Dr. Avery ([facility] advanced endoscopy), the plan will be to transfer to [facility] for endoscopic glue versus embolization. Please continue to monitor the patient carefully for ongoing bleeding. Okay for clear liquid diet at this time. Pratik Winters MD [facility]astroenterology and HepatologyFederal [facility] Center, [id number] NoteHNO ID: [id number] Author: LORI STEEL MD Service: Critical Care Author Type: Physician Type: Progress Notes Filed: 02/24/2025 10:53 Note Text: MICU PROGRESS NOTE WITH [facility] CARE SERVICE DATE: 02/24/2025 Admission Date: 02/23/2025 Day #: 2 in the MICU. HPI: Summarized through review of available medical records, and patient/family interview. 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 On sandostatin, C14 on 12/09/2024. - Hx of hemetemesis/melena. Unremarkable colonoscopy and small bowel enteroscopy from 10/2024 - CKD3a - HTN - BPH Mr. Julien presented to ED at OSH for hematemesis and hematochezia. Patient noted that on Friday morning he had abdominal pain followed by episodes of bright red stool, when he got off the toilet he also had bright red vomiting. Patient had a total of 2 episodes of bright red vomiting and 4-5 bloody bowel movements. Patient felt clammy, dizzy, very cold at home. Patient tried to rest at home however by 9 PM patient did not feel well and went to outside hospital ED. Patient noted that he was given some fluids. [address] And a CT scan was done. Patient did report having a bloody bowel movement before coming to [place] ICU. Patient does report drinking 8 beers on Friday. Patient does endorse heavy drinking, has drank 8-10 beers a day for the past 50 years. Patient does not smoke. Patient does not take home medications. He only takes losartan when his blood pressure is high. 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 Overnight: 6.9 on CBC, ABG Hb 9.1, transfusion stopped. On octeriode. No levo started. 1 tarry BM. Assessment and plan: GI #GIB 2/2 ectopic varix #At risk for alc withdrawal #Alc use disorder - Patient presented with hematemesis and hematochezia - Hb at 9.9 from 10.5 13 days ago - Has had one episode of hematochezia prior to [facility] admission today - No abd pain - Doesn't not take home medications/ otc -S/p EGD on 02/23 with injected lesion that is the ectopic gastric varix from the site of gastrojejunal anastomosis resulting in slow flow of blood from this region. Intubated and a line was placed in endoscopy. CTA was done and IR was consulted. No bleeding was noted on CTA and IR recommended no further intervention. Hb from 9.9 to 8 and 1 unit pRBS ordered. Octreotide ordered. - 02/24: Patient extubated. GI at [place] discussed case with GI main and patient is at high risk of re-bleeding and GIB 2/2 gastric lesion is likely to be an ectopic varix, at high risk of rebleeding and Dr. Avery to attempt endoscopic glue or embolization. PLAN: - GI consulted - Transfer to [facility] - Cont with octreotide for 72 hours - Transfusion if hb 7, actively bleeding, or symptomatic - IV PPI - 2 large bore IVs - NPO - CBC q4 for 1st 24 hrs then deescalate - CIWA protocol - Advise alc cessation - Monitor for alc withdrawal and low threshold to start phenobarb Renal/ Electrolytes: #ENEDINA on CKD - Cr 1.65 on admission likely pre-renal given hx of vomiting and frequent BMS - IVF given in OSH ED PLAN: - Trend RFTs Pulmonary: - Extubated on 02/24 DVT ppx: Contraindicated- bleeding GI ppx: IV PPI Pt seen and discussed with Dr Steel and RN No Patient Care Coordination Note on file. Active Hospital Problems Diagnosis Date Noted UGIB (upper gastrointestinal bleed) 02/23/2025 ENEDINA (acute kidney injury) (HCC) 02/23/2025 Acute on chronic blood loss anemia 10/31/2024 OBJECTIVE: BP 109/53 Pulse 88 Temp 36.8 ?C (98.2 ?F) (Oral) Resp 16 Ht 176.5 cm (5' 9.5 ) Wt 77.6 kg (171 lb 1.2 oz) SpO2 100% BMI 24.90 kg/m? Vital signs reviewed. NET FLUID BALANCE Intake/Output Summary (Last 24 hours) at 02/24/2025 0906 Last data filed at 02/24/2025 0600 Gross per 24 hour Intake 1732 ml Output 1425 ml Net 307 ml MEDICATIONS Current Facility-Administered Medications Medication Dose Route Frequency pantoprazole 40 mg injection (PROTONIX) 40 mg INTRAVENOUS BID AC (0600/1600) thiamine 200 mg injection 200 mg INTRAVENOUS q 8 H Followed by [START ON 02/26/2025] thiamine 100 mg tab(s) (VITAMIN B1) 100 mg ORAL/FEEDING TUBE TID NaCl 0.9% iv flush bag 20 mL INTRAVENOUS PRN octreotide 500 mcg in NaCl 0.9% 100 mL (SandoSTATIN) 50 mcg/hr INTRAVENOUS CONTINUOUS INFUSIONS octreotide, Last Rate: 50 mcg/hr (02/24/25 0719) Lines, Drains, and Airways Line Duration Arterial Line/Sheath 02/23/25 1508 Left Radial <1 day Peripheral 02/23/25 1222 Right Antecubital 18 Gauge <1 day Peripheral 02/23/25 1825 [facility] Right Forearm 22 Gauge <1 day Peripheral 02/23/25 2219 [facility] Right Forearm 20 Gauge <1 day Drain Duration Indwelling Urinary Catheter 02/23/25 1627 [facility] F (more content not included)...[facility] [id number] NoteHNO ID: [id number] Author: DEMETRIUS GONZALEZ MD Service: Critical Care Author Type: Resident Type: Plan of Care Filed: 02/24/2025 05:00 Note Text: Plan of Care CBC this AM with Hb at 6.3. Pt had 1 black BM overnight. Remains hemodynamically stable with regular HR, normotensive with MAP > 65. I spoke to electronics utility worker IR physician, Dr Tinajero. No indication for intervention as of now with plans for further discussions in the morning. Will order 2 units of pRBCs STAT and monitor for hemodynamic instability. I will reach out to Dr Tinajero incase of active bleeding or hemodynamic instablity. 02/24/25 4:07 AM ADDENDUM 5:00 AM: - ABG obtained given bicarb of 8 on CMP. On ABG, Hb of 9.1 and K within normal. We will hold off blood transfusion at the moment and will order a repeat CBC. Demetrius Anderson MD IM PGY2 MICU Night [facility]07-02-2025 NoteHNO ID: [id number] Author: BERTHA AMEZCUA MD Service: Critical Care Author Type: Resident Type: Plan of Care Filed: 02/23/2025 18:52 Note Text: S/p EGD with injected lesion that is the ectopic gastric varix from the site of gastrojejunal anastomosis resulting in slow flow of blood from this region. Intubated and a line was placed in endoscopy. CTA was done and IR was consulted. No bleeding was noted on CTA and IR recommended no further intervention. Hb from 9.9 to 8 and 1 unit pRBS ordered. Octreotide ordered, MAPS of 88. CBC q4. updated and patient to be FULL CODE, consent obtained. Bertha Amezcua MDFederal Medical Center, [id number] NoteHNO ID: [id number] Author: SUDHA SYED APRN.CNP Service: Gastroenterology Author Type: Nurse Practitioner Type: Plan of Care Filed: 02/23/2025 18:11 Note Text: Brief GI Note: EGD 02/23/25 Impression: - Normal examined jejunum. - Acquired duodenal stenosis. - Gastric bypass with a normal-sized pouch. Gastrojejunal anastomosis characterized by edema. - Gastritis, characterized by erythema. - Normal esophagus. - No specimens collected. - Type 2 isolated gastric varices (IGV2, varices located in the body, antrum or around the pylorus). Because there was significant edema of the gastrojejunal anastomosis, I initially thought that oozng at anastomotic site was due to anastomotic lesion. Therefore, I injected 1cc epinephrine and applied 1 clip to this lesion. I then realized that this lesion was actually more likely to be an ectopic gastric varix at the site of the anastomosis. After placement of the clip, there was persistent slow flow of blood from this region, and I believe that the most prudent course of action is referral to IR for TIPS vs. BRTO. Hemostatic spray was applied and the patient was intubated for airway protection. Recommendation: - Return patient to ICU for ongoing care. - NPO. - Continue present medications. - The patient is not currently taking anticoagulant or antiplatelet agents. - Initiate octreotide gtt - Proceed immediately to IR for stat CTA and referral to IR for TIPS vs. BRTO.[facility] [id number] NoteHNO ID: [id number] Author: PATRICIA TOMLIN MD Service: Anesthesiology Author Type: Anesthesiologist Type: Anesthesia Procedure Notes Filed: 02/23/2025 17:22 Note Text: ANESTHESIOLOGY PROCEDURE NOTE A-Line General Information Procedure Start Time/Medication Administration: 02/23/2025 3:08 PM Procedure End Time: 02/23/2025 3:08 PM Patient location during procedure: OR (Endo) Consent Obtained: Yes Indications: continuous blood pressure monitoring Staffing Anesthesiologist: Patricia Tomlin MD Performed by: anesthesiologist Preparation Sterility Preparation: hand hygiene performed prior to procedure, sterile gloves, drapes, and procedure tray, surgical cap used, mask used, sterile drape used during line insertion, skin prep agent completely dried prior to procedure Site Prep: Chlorhexidine Procedure Details Catheter Type: arterial line Catheter Size: 20 G Catheter Length: 5.25 in Micropuncture Kit Used: No Guidewire Used: Yes Guidewire Removed Intact: Yes Laterality: left Site: radial artery Ultrasound Guided: Yes Image in Chart: No Sites: potential access sites evaluated, selected vessel patent, concurrent real time ultrasound visualization of vascular needle entry Vessel: target vessel identified and guidewire advanced into vessel Line Secured: Tegaderm and tape Events Events: patient tolerated procedure well with no complications SIGNATURE: Diogo Blankenship APRN.INSPECTOR POISING PATIENT NAME: Aisha Julien DATE: February 23, 2025 TIME: 3:09 PM CSN: [id number] I personally performed this procedure without complication. Patricia Tomlin MD February 23, 2025 5:21 [facility]07-02-2025 NoteHNO ID: [id number] Author: DIOGO BLANKENSHIP APRN.CRNA Service: Anesthesiology Author Type: Nurse Powerhouse Laborer Type: Anesthesia Procedure Notes Filed: 02/23/2025 14:50 Note Text: ANESTHESIOLOGY PROCEDURE NOTE Airway General Information Procedure Start Time/Medication Administration: 02/23/2025 2:47 PM Procedure End Time: 02/23/2025 2:47 PM Patient location during procedure: OR Patient identity confirmed: arm band and care contact center team lead Staffing Anesthesiologist: Patricia Tomlin MD INSPECTOR POISING: Diogo Blankenship APRN.INSPECTOR POISING Performed by: ESPERANZA Indications and Patient Condition Indications for airway management: anesthesia Preoxygenated: yes anesthesia circuit Method: rapid sequence Cricoid Pressure: Yes Difficult Mask: No Final Airway Details Final airway type: endotracheal airway Final Endotracheal Airway: ETT Cuffed: yes Successful intubation technique: direct laryngoscopy Devices used: Givey Endotracheal tube insertion site: oral Blade size: #4 ETT size (mm): 7.5 Measured from: lips Measurement (cm): 23 Placement verified by: chest auscultation and capnometry Cormack-Lehane Classification: grade I - full view of glottis Number of attempts at approach: 1 Airway not difficult SIGNATURE: Diogo Blankenship APRN.CRNA PATIENT NAME: Aisha Julien DATE: February 23, 2025 TIME: 2:49 PM CSN: [id number] Telephone encounter Note * Telephone Encounter - Pratik Naik - 02/08/2025 11:05 AM EDT SPOKE WITH PT SCHEDULED, NEXT TREATMENT IS 02/10, SCHEDULED 03/09, TREATMENT FOLLOWING DAY [facility]06-17-2025 Miscellaneous Notes* Telephone Encounter - Pratik Naik - 02/08/2025 11:05 AM EDT SPOKE WITH PT SCHEDULED, NEXT TREATMENT IS 02/10, SCHEDULED 03/09, TREATMENT FOLLOWING DAY * Telephone Encounter - Vicki Cano - 02/07/2025 3:02 PM EDT DOTATATE Comments for Overedge Machine Operator: AUGUSTINA/Shashi March 09, 2025 Will the patient need [...] Dotatate Image: 12/08/24 Scan: positive Isotope used: GA-68-/[place] Positive Scan Schedule at place of last (DOS) [facility] or [facility] Negative Scan Schedule at ANY Dotatate site requested Isotope used: [facility] Copper CU-64 [place]/ GA-68 (NETSPOT) Dotatate Dotatate [id number] ([id number]) Gallium Dotatate (NetSpot) Route to: P PET ALARM INSTALLER MC * Telephone Encounter - Jordyn Valerio - 02/07/2025 2:17 PM EDT This form is used for MAIN CAMPUS APPOINTMENTS ONLY. Is this request for a [place] PET scan appointment? Yes: Air Transportation Provider: Jordyn Valerio Who do we call to schedule this appointment? Patient Requesting Staff Roselyn Leonard Area Code + Phone/Pager: [phone] PET Orders (A delay in scheduling will [...] P COORD REVIEW MC documented [facility]06-[facility] Telephone encounter Note * Telephone Encounter - Vicki Cano - 02/07/2025 3:02 PM EDT DOTATATE Comments for Overedge Machine Operator: GA-68-/[place] March 09, 2025 Will the patient need [...] Dotatate Image: 12/08/24 Scan: positive Isotope used: GA-68-/[place] Positive Scan Schedule at place of last (DOS) [facility] or [facility] Negative Scan Schedule at ANY Dotatate site requested Isotope used: [facility] Copper CU-64 [place]/ GA-68 (NETSPOT) Dotatate Dotatate [id number] (54cCi) Gallium Dotatate (NetSpot) Route to: P PET ALARM INSTALLER [facility] Work Phone: [phone] 822-858706-16-2025 Telephone encounter Note* Telephone Encounter - Jordyn Valerio - 02/07/2025 2:17 PM EDT This form is used for MAIN CAMPUS APPOINTMENTS ONLY. Is this request for a [place] PET scan appointment? Yes: Air Transportation Provider: Jordyn Valerio Who do we call to schedule this appointment? Patient Requesting Staff Roselynsonia Leonard Area Code + Phone/Pager: [phone] PET Orders (A delay in scheduling will [...] Send requests to P COORD REVIEW MC [facility]05-28-20[facility] NoteUniversity [facility]-28-[facility] History of Present illness Narrative* Itzel Singh APRN.CIGARETTE CARTON SEALER - 01/19/2025 7:54 PM EDT Images from the original note were not included. NAME: Aisha Julien [facility] NO.: [id number] DATE OF SERVICE: January 20, 2025 (Francisco) Some elements in this clinic note that are critical to medical decision making have been carefully reviewed and included from a prior clinic note dated: December 09, 2024 (Raoul) Referring Provider: Dr. Cleveland De León Additional Clinicians involved in Aisha Naveen Wily's care: DIAGNOSIS: Neuroendocrine tumor (SB - Distal [...] I am unsure if this is related toactive disease versus single episode. Additionally has a 1.7 cm irregularly marginated nodular massin the left apical lung that I'd like [...] stigmata of active or recent GI bleeding. Ilealmass not encountered. 10/31/2024-11/03/2024 - Admitted at [place] with GI bleed 10/28/2024 - Palliative GJ [...] urinary bladder wall. 10/28/2024 - ER at [facility] for cough, black emesis, and black tarry stools 08/13/2024 - Increased Sandostatin to q 3 weeks 08/03/2024 - Neuroendocrine PET: PRIMARY DISEASE SITE: Slight increased size of distal ileum metabolically avid lesion with adjacentpartially calcified implant representing biopsy-proven neuroendocrine tumor. ANILA [...] and/or Dotatate PET/CT, as clinically indicated. No hyperm etabolic/pathologic lymphadenopathy. MUSCULOSKELETAL: 6.9 cm RIGHT gluteus carole [...] are appreciated as above. Given the patient's history,the possibility of osseous metastases is not excluded. [...] Laparotomy, gastrojejunostomy (Bilroth II reconstruction), takedown of gastrocutaneousfistula, and placement of distal feeding tube 10/29/2023-11/07/2023 - Admitted at [place] - observation after surgery 10/01/2023 - CT [...] which could be related to osteopenia or infiltrativemetastatic disease (and could be further differentiated with Dotatate PET-CT). 08/28/2023 - CT Brain: No CT evidence of acute intracranial process 08/28/2023 - CXR: No evidence of active disease. 08/28/2023-09/05/2023 - Admitted at [place] - Patient sent by surgery with failure [...] indeterminate hepatic hypodensities. 08/07/2023-08/17/2023 - Admitted at [place] - Nausea & Vomiting: Sent by GI for weight loss and unable to keep anything down since June. 07/25/2023 - EGD with biopsy: - Duodenal mass - [facility] - Dr. Linder 07/24/2023 - CT A/P: at [facility] A mass is noted in the region [...] off. He color white looks yellow. He hadhis normal eye exam which was normal. He [...] fevers, chills, night sweats or signs/symptoms of infecti on. He denies any bone pain. He is [...] He was seen in the ER at [facility] for a cough, black emesis, and black tarry stools. He had a palliative GJ bypass on 10/28/2024. He was then admitted at [place] for the GI bleed, scopes did not [...] abdominopelvic metastases. His Chromogranin A has also increasedfrom 05/2024-06/2024. He endorses new occasional abdominal pain. [...] exposure due to work. He was never acigarette smoker, does smoke the occasional cigar and [...] subsequently fell. He reports feeling nauseous prior tosyncope. He was found to be hypotensive. He [...] metastases in 06/2023. He had an open GJbypass on 10/28. He would like to start systemic therapy (Sandostatin) here in [place]. Incidents of nausea after eating got more frequent over the past two years prior to diagnosis. He has a PICC line currently, PEG-J tube did not work well for him. He is not in pain now, a littlesore on site of stitches. Prior History from Dr. Cleveland De León's Progress Note on 11/17/2023: Assessment & Diagnosis: [...] PICC line since no TPN or IV hydrationwill be needed. Referral to medical oncology to consider systemic therapy (Sandostatin) Return to surgery clinic as needed REVIEW OF SYSTEMS Per HPI and otherwise negative by full review of organ systems. 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 Itzel Singh APRN.[facility] Provided at: [place], [place] CC: Cleveland Mikhailgeorgette [address] [facility] [id number] Rene Cannon MD, [address] [facility] [id number] documented in this encounterMansfield Hospital04-23-2025 Telephone encounter Note * Telephone Encounter - Hyacinth Mcpherson - 12/15/2024 12:22 PM EDT Patient is scheduled for 12-15-24 [facility]04-23-2025 Miscellaneous Notes* Telephone Encounter - Hyacinth Mcpherson - 12/15/2024 12:22 PM EDT Patient is scheduled for 12-15-24 * Telephone Encounter - Rahat Adair APRN.CNP - 12/13/2024 3:36 PM EDT ----- Message from Jordyn Valerio sent at 12/13/2024 3:24 PM EDT ----- ----- Message from Nia Muniz RN sent at 12/13/2024 2:33 PM EDT ----- He is still iron deficient - will need more iron. * Telephone Encounter - Jordyn Valerio - 12/13/2024 3:23 PM EDT Patient has been scheduled for Monoferric on Friday, 12/15 and notified. Looks like orders will still need to be placed? Thanks! Jordyn Valerio * Telephone Encounter - Nia Muniz RN - 12/13/2024 2:30 PM EDT VM left with Nancy's message and IV iron recommendations. Encouraged to call to schedule Pharm: Please place orders Soraya/Hyacinth: Please call to schedule Nia Muniz RN documented in this encounterMansfield Hospital04-21-2025 Telephone encounter Note * Telephone Encounter - Rahat Adair APRN.BROCK - 12/13/2024 3:36 PM EDT ----- Message from Jordyn Valerio sent at 12/13/2024 3:24 PM EDT ----- ----- Message from Nia Muniz RN sent at 12/13/2024 2:33 PM EDT ----- He is still iron deficient - will need more iron. [facility] Work Phone: [phone] Telephone encounter Note* Telephone Encounter - Jordyn Valerio - 12/13/2024 3:23 PM EDT Patient has been scheduled for Monoferric on Friday, 12/15 and notified. Looks like orders will still need to be placed? Thanks! Jordyn Valerio [facility]04-21-2025 Telephone encounter Note* Telephone Encounter - Nia Muniz RN - 12/13/2024 2:30 PM EDT VM left with Nancy's message and IV iron recommendations. Encouraged to call to schedule Pharm: Please place orders Soraya/Hyacinth: Please call to schedule Nia Muniz, RN [facility]04-17-2025 Instructions* Patient Instructions* Reina Bridges - 12/09/2024 9:08 AM EDT C14 Sandostatin today Labs on 12/20 Triage to call results C15 in 3 weeks Labs, no clinician RTC in 6 weeks for C16 Labs same day documented in this encounterMansfield Hospital04-17-2025 History of Present illness Narrative* Roselyn Leonard MD - 12/09/2024 9:00 AM EDT Images from the original note were not included. NAME: Aisha Julien CLINIC NO.: [id number] DATE OF SERVICE: December 09, 2024 (Raoul) Some elements in this clinic note that are critical to medical decision making have been carefully reviewed and included from a prior clinic note dated: November 17, 2024 (Raoul) Referring Provider: Dr. Cleveland De León Additional Clinicians involved in Aisha Julien's care: [...] I am unsure if this is related toactive disease versus single episode. Additionally has a 1.7 cm irregularly marginated nodular massin the left apical lung that I'd like [...] stigmata of active or recent GI bleeding. Ilealmass not encountered. 10/31/2024-11/03/2024 - Admitted at [place] with GI bleed 10/28/2024 - Palliative GJ [...] urinary bladder wall. 10/28/2024 - ER at [facility] for cough, black emesis, and black tarry stools 08/13/2024 - Increased Sandostatin to q 3 weeks 08/03/2024 - Neuroendocrine PET: PRIMARY DISEASE SITE: Slight increased size of distal ileum metabolically avid lesion with adjacentpartially calcified implant representing biopsy-proven neuroendocrine tumor. ANILA [...] and/or Dotatate PET/CT, as clinically indicated. No hyperm etabolic/pathologic lymphadenopathy. MUSCULOSKELETAL: 6.9 cm RIGHT gluteus carole [...] are appreciated as above. Given the patient's history,the possibility of osseous metastases is not excluded. [...] Laparotomy, gastrojejunostomy (Bilroth II reconstruction), takedown of gastrocutaneousfistula, and placement of distal feeding tube 10/29/2023-11/07/2023 - Admitted at [place] - observation after surgery 10/01/2023 - CT [...] which could be related to osteopenia or infiltrativemetastatic disease (and could be further differentiated with Dotatate PET-CT). 08/28/2023 - CT Brain: No CT evidence of acute intracranial process 08/28/2023 - CXR: No evidence of active disease. 08/28/2023-09/05/2023 - Admitted at [place] - Patient sent by surgery with failure [...] indeterminate hepatic hypodensities. 08/07/2023-08/17/2023 - Admitted at [place] - Nausea & Vomiting: Sent by GI for weight loss and unable to keep anything down since June. 07/25/2023 - EGD with biopsy: - Duodenal mass - [facility] - Dr. Linder 07/24/2023 - CT A/P: at [facility] A mass is noted in the region [...] He was seen in the ER at [facility] for a cough, black emesis, and black tarry stools. He had a palliative GJ bypass on 10/28/2024. He was then admitted at [place] for the GI bleed, scopes did not [...] abdominopelvic metastases. His Chromogranin A has also increasedfrom 05/2024-06/2024. He endorses new occasional abdominal pain. [...] exposure due to work. He was never acigarette smoker, does smoke the occasional cigar and [...] subsequently fell. He reports feeling nauseous prior tosyncope. He was found to be hypotensive. He [...] metastases in 06/2023. He had an open GJbypass on 10/28. He would like to start systemic therapy (Sandostatin) here in [place]. Incidents of nausea after eating got more frequent over the past two years prior to diagnosis. He has a PICC line currently, PEG-J tube did not work well for him. He is not in pain now, a littlesore on site of stitches. Prior History from Dr. Cleveland De León's Progress Note on 11/17/2023: Assessment & Diagnosis: [...] PICC line since no TPN or IV hydrationwill be needed. Referral to medical oncology to consider systemic therapy (Sandostatin) Return to surgery clinic as needed REVIEW OF SYSTEMS Per HPI and otherwise negative by full review of organ systems. ECOG PERFORMANCE STATUS: 1 PHYSICAL EXAMINATION: Vitals: BP 118/66 Pulse 92 Temp (Src) 97.2 (Temporal) Resp 16 Ht 5' 9.488 (1.77m) Wt 173lb 11.6 oz (78.8kg) SpO2 100% BMI 25.30 [...] which included preparing to see the patient, [id number] patient care, completing clinical documentation, performing a medically appropriate examination, counseling and educating the patient/family/caregiver, ordering medications, tests, or procedures, independently interpreting results (not separately reported), communicating results to the patient/family/caregiver, and care coordination (not separately reported). Roselyn Leonard MD, CPE Hematology and Oncology Services Provided at: [place], [place] Scribe Attestation: This note was scribed by Reina Bridges on December 09, 2024 under the direction and supervision ofDr. Roselyn Leonard. I attest that all of the information documented is correct to the best of my knowledge. Provider Attestation: I, Roselyn Leonard MD, attest that all information documented by the above scribe is correct, and was supervised by me and under my direction. CC: Cleveland De León [address] [facility] [address] Rene Cannon MD, MD [address] [facility] [id number] documented in this encounterMansfield Hospital04-17-2025 NoteUniversity Hospitals Samar[facility]04-16-2025 History of Present illness Narrative* Henrik Pinto, RT(R) - 12/08/2024 8:00 AM EDT RADIOLOGY SERVICE PROGRESS NOTE SERVICE DATE: 12/08/2024 [...] PATIENT PRESENTS WITH AN IMPLANTABLE OR ATTACHED [employer]: No CREATININE: Creatinine Date Value Ref Range [...] TYPE: NM INJECT: DOTATATE PET. 6.0 mCi [id number]. No other medications given.. ADMINISTRATION TIME: 757 PATIENT DISCHARGED TO: Ambulatory patient, left NM department area. Is this a therapy: No A Diagnostic radioactive procedure has taken place, with no further precautions necessary other than routine body substance precautions. 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 Hearing Screening: Not done Cognitive Screening Self [...] Procedure Laterality Date CATARACT EXTRACTION Left 08/28/2017 Zahler CATARACT EXTRACTION Right 09/25/2017 Joaquin COLONOSCOPY 06/2021 Pham COLONOSCOPY 10/2024 EGD 12/22/2021 Elpidio [facility] ESOPHAGOSCOPY / EGD 10/2024 IR CVC PICC 08/29/2023 IR CVC PICC ID THORACOSTOMY OPEN FLAP DRAINAGE EMPYEMA TONSILLECTOMY TOTAL KNEE ARTHROPLASTY x3 SOCIAL HISTORY: Social History Tobacco Use Smoking status: Never Smokeless tobacco: Never Substance Use Topics Alcohol use: Yes Alcohol/week: 56.0 standard drinks of alcohol Types: 56 Standard drinks or equivalent per week Comment: Caffeine intake : 1-2 cups perday Drug use: Not Currently Depression: Not at risk (11/17/2024) [facility] PHQ-2 PHQ-2 score: 0 FAMILY HISTORY: [...] ASCVD risk score (Michael SANDOVAL, et al., 20192020 [employer] [employer]) returns the percentage [...] discussing health maintenance issues, ordering testing as appropriate,and a schedule was reviewed regarding recommended screening. [...] lasted approximately 5-10 minutes documented in this encounterNorthwest Medical [id number] Instructions* Patient Instructions* Reina Bridges - 11/17/2024 9:29 AM EDT Labs today Call results and schedule IV iron if indicated Obtain recent CT CAP images from [facility] Neuroendocrine PET on 12/08/2024 RTC same day after scan C14 Sandostatin same day following RTC - delayed for scan documented in this encounterMansfield Hospital03-26-2025 History of Present illness Narrative* Roselyn Leonard MD - 11/17/2024 9:00 AM EDT Images from the original note were not included. NAME: Aisha Julien CLINIC NO.: [id number] DATE OF SERVICE: November 17, 2024 (Raoul) Some elements in this clinic note that are critical to medical decision making have been carefully reviewed and included from a prior clinic note dated: August 13, 2024 (Raoul) Referring Provider: Dr. Cleveland De León Additional Clinicians involved in Aisha Julien's care: [...] I am unsure if this is related toactive disease versus single episode. Additionally has a 1.7 cm irregularly marginated nodular massin the left apical lung that I'd like [...] indicated Obtain recent CT CAP images from [facility] Neuroendocrine PET on 12/08/2024 RTC same day [...] stigmata of active or recent GI bleeding. Ilealmass not encountered. 10/31/2024-11/03/2024 - Admitted at [place] with GI bleed 10/28/2024 - Palliative GJ [...] urinary bladder wall. 10/28/2024 - ER at [facility] for cough, black emesis, and black tarry stools 08/13/2024 - Increased Sandostatin to q 3 weeks 08/03/2024 - Neuroendocrine PET: PRIMARY DISEASE SITE: Slight increased size of distal ileum metabolically avid lesion with adjacentpartially calcified implant representing biopsy-proven neuroendocrine tumor. ANILA [...] and/or Dotatate PET/CT, as clinically indicated. No hyperm etabolic/pathologic lymphadenopathy. MUSCULOSKELETAL: 6.9 cm RIGHT gluteus carole [...] are appreciated as above. Given the patient's history,the possibility of osseous metastases is not excluded. [...] Laparotomy, gastrojejunostomy (Bilroth II reconstruction), takedown of gastrocutaneousfistula, and placement of distal feeding tube 10/29/2023-11/07/2023 - Admitted at [place] - observation after surgery 10/01/2023 - CT [...] which could be related to osteopenia or infiltrativemetastatic disease (and could be further differentiated with Dotatate PET-CT). 08/28/2023 - CT Brain: No CT evidence of acute intracranial process 08/28/2023 - CXR: No evidence of active disease. 08/28/2023-09/05/2023 - Admitted at [place] - Patient sent by surgery with failure [...] indeterminate hepatic hypodensities. 08/07/2023-08/17/2023 - Admitted at [place] - Nausea & Vomiting: Sent by GI for weight loss and unable to keep anything down since June. 07/25/2023 - EGD with biopsy: - Duodenal mass - [facility] - Dr. Linder 07/24/2023 - CT A/P: at [facility] A mass is noted in the region [...] He was seen in the ER at [facility] for a cough, black emesis, and black tarry stools. He had a palliative GJ bypass on 10/28/2024. He was then admitted at [place] for the GI bleed, scopes did not [...] abdominopelvic metastases. His Chromogranin A has also increasedfrom 05/2024-06/2024. He endorses new occasional abdominal pain. [...] exposure due to work. He was never acigarette smoker, does smoke the occasional cigar and [...] subsequently fell. He reports feeling nauseous prior tosyncope. He was found to be hypotensive. He [...] metastases in 06/2023. He had an open GJbypass on 10/28. He would like to start systemic therapy (Sandostatin) here in [place]. Incidents of nausea after eating got more frequent over the past two years prior to diagnosis. He has a PICC line currently, PEG-J tube did not work well for him. He is not in pain now, a littlesore on site of stitches. Prior History from Dr. Cleveland De León's Progress Note on 11/17/2023: Assessment & Diagnosis: [...] PICC line since no TPN or IV hydrationwill be needed. Referral to medical oncology to [...] which included preparing to see the patient, [id number] patient care, completing clinical documentation, performing a medically appropriate examination, counseling and educating the patient/family/caregiver, ordering medications, tests, or procedures, independently interpreting results (not separately reported), communicating results to the patient/family/caregiver, and care coordination (not separately reported). Roselyn Leonard MD, CPE Hematology and Oncology Services Provided at: [place], [place] Scribe Attestation: This note was scribed by Reina Bridges on November 17, 2024 under the direction and supervision ofDr. Roselyn Leonard. I attest that all of the information documented is correct to the best of my knowledge. Provider Attestation: I, Roselyn Leonard MD, attest that all information documented by the above scribe is correct, and was supervised by me and under my direction. CC: Cleveland De León [address] [facility] [address] Rene Cannon MD, MD [address] [facility] [id number] documented in this encounterMansfield Hospital03-26-2025 NoteUniversity Hospitals Samar[facility]03-17-2025 Telephone encounter Note* Telephone Encounter - Adela Estrella - 11/08/2024 11:02 AM EDT Patient returned call and is scheduled for Friday11/17/24. MARIZOL Morales [facility]03-17-2025 Miscellaneous Notes* Telephone Encounter - Adela Estrella - 11/08/2024 11:02 AM EDT Patient returned call and is scheduled for Friday11/17/24. MARIZOL Morales * Telephone Encounter - Xin Robert - 11/08/2024 10:52 AM EDT 3rd attempt-Lvm for patient to call back to schedule a hospital follow up with NANCY in 1-2 weeks. MARIZOL Madden * Telephone Encounter - Xin Robert - 11/05/2024 11:29 AM EDT 2nd attempt-Lvm for patient to call back to schedule a hospital follow up with NANCY in 1-2 weeks. MARIZOL Madden * Telephone Encounter - Adela Estrella - 11/04/2024 10:48 AM EDT Patient called and said any appointments he needs can be made when he is in the office tomorrow 11/05/24 MARIZOL Morales * Telephone Encounter - Xin Robert - 11/04/2024 9:54 AM EDT Lvm for patient to call back to schedule a hospital follow up with NANCY in 1-2 weeks. MARIZOL Madden * Telephone Encounter - Brooklyn Khan - 11/03/2024 4:26 PM EDT Please see below. Can someone please assist in scheduling a follow up visit with Dr Leonard? He is an established patient. Thank you! * Telephone Encounter - Shaquille Mercado - 11/03/2024 3:50 PM EDT Follow up appointment: Hematology/Oncology Schedule follow up appointment within 1-2 wk Location of Cancer Patient eligible for virtual visit? Schedule with Testing Ordered Follow Up Reason: Hospital follow up documented in this encounterMansfield Hospital03-17-2025 Telephone encounter Note * Telephone Encounter - Xin Robert - 11/08/2024 10:52 AM EDT 3rd attempt-Lvm for patient to call back to schedule a hospital follow up with NANCY in 1-2 weeks. MARIZOL Madden [facility]03-14-2025 Telephone encounter Note* Telephone Encounter - Xin Robert - 11/05/2024 11:29 AM EDT 2nd attempt-Lvm for patient to call back to schedule a hospital follow up with NANCY in 1-2 weeks. MARIZOL Madden [facility]03-13-2025 Telephone encounter Note* Telephone Encounter - Adela Estrella - 11/04/2024 10:48 AM EDT Patient called and said any appointments he needs can be made when he is in the office tomorrow 11/05/24 Adela Estrelal PSS [facility]03-13-2025 Telephone encounter Note* Telephone Encounter - Adela Estrella - 11/04/2024 10:47 AM EDT Patient called and said any appointments he needs can be made when he is in the office tomorrow 11/05/24 MARIZOL Morales [facility]03-13-2025 Miscellaneous Notes* Telephone Encounter - Adela Estrella - 11/04/2024 10:47 AM EDT Patient called and said any appointments he needs can be made when he is in the office tomorrow 11/05/24 MARIZOL Morales * Telephone Encounter - Melissa Mccann - 11/01/2024 9:44 AM EDT Triage encounter sent 11/01/24. Patient needs to be scheduled on December 02 for PET * Telephone Encounter - Melissa Mccann - 10/25/2024 2:09 PM EST I have Mr. Julien flagged for his Pet scan for November. We have to send a phone encounter to triage this for approval. He is on my schedule to send encounter on Friday. * Telephone Encounter - Rosaline Jon [facility] - 10/25/2024 11:39 AM EST I reached out to Mr. Julien today regarding his upcoming Sandostatin injection and he notified me he retired 10/22/24. He now has [employer] insurance: [employer] ID [id number] plan# [phone] [id number] customer service [phone] He also stated he thinks he should be scheduled for a PET scan at least 3 weeks after his next injection (11/05) however, he does not currently have an appointment for a PET. Please advise. Thank you, Rosaline Jon RPh documented in this encounterMansfield Hospital03-13-2025 Telephone encounter Note * Telephone Encounter - Xin Robert - 11/04/2024 9:54 AM EDT Lvm for patient to call back to schedule a hospital follow up with NANCY in 1-2 weeks. Xin Robert PSS [facility]03-12-2025 Telephone encounter Note* Telephone Encounter - Brooklyn Khan - 11/03/2024 4:26 PM EDT Please see below. Can someone please assist in scheduling a follow up visit with Dr Leonard? He is an established patient. Thank you! [facility]03-12-2025 Telephone encounter Note* Telephone Encounter - Shaquille Mercado - 11/03/2024 3:50 PM EDT Follow up appointment: Hematology/Oncology Schedule follow up appointment within 1-2 wk Location of Cancer Patient eligible for virtual visit? Schedule with Testing Ordered Follow Up Reason: Hospital follow up [facility]03-12-2025 NoteHNO ID: [id number] Author: RAUL PATE, LUCILLE Service: Care Management Author Type: Registered [...] Julien DATE: November 03, 2024 TIME: 12:45 [facility]03-11-2025 NoteHNO ID: [id number] Author: LEW ARITA MD Service: General Internal [...] original meaning may be extrapolated by contextual derivationFederal Medical Center, [id number] NoteHNO ID: [id number] Author: RIVERA PIPER PA-C Service: General Internal Medicine Author Type: Physician Registration Manager Type: Plan of Care Filed: 11/02/2024 15:26 [...] to discharge Rivera Piper PA-C 11/02/2024 3:26 [facility]03-11-2025 NoteHNO ID: [id number] Author: RAUL PATE RN Service: Care Management Author Type: Registered Nurse Type: Care Mgt Initial Assessment Filed: 11/02/2024 11:33 Note Text: CARE MANAGEMENT: ASSESSMENT AND DISCHARGE PLAN SERVICE DATE: November 02, 2024 SERVICE TIME: 11:00 AM PCP: Rene Cannon MD, MD Primary Contact: Extended Emergency Contact Information Primary Emergency Contact: Katiuska Julien Address: [address] [place] [address] Mobile Relation: Spouse Admission Status: Inpatient Insurance Provider: BLUE CARD PPO OOS Discharge Planning requested by: Per Department Practice Potential Transition Plans Home, No Services Indicated Advance Directives Current Advance Directive: Health Care Power of Fashion Buyer In Chart: No Government Auditor Attempted to Assist with AD Completion: Yes Action: Education Provided : No HCPOA paperwok on file within [employer] and verified to be current as of date/time of this note Legal Next of Kin Hierarchy per [place] Revised Code: Legal Spouse -Katiuska Julien [phone] Majority of Adult Children (consensus if possible) 3 children: Son, Iglesia Julien [phone] Raul Pate RN November 02, 2024 Current Living Arrangements and Support Lives with: Spouse/significant other, Children (and son, Iglesia) Type of Residence: Private Residence (House) Does [...] Be able to go home, General wellness Dennard of Choice Explained: Dennard of Choice Given: No Reason Not Given: [...] No - Do you ever drink an eye-scrubbing machine operator in the morning to relieve shakes? No [...] meds. 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 No DME or active HH or SS. Denied any financial issues. Denied any drug use, but drinks 6-8 beers per day. Does not feel that alcohol use is a problem. Active with every 3 week Sandostatin injections at [facility]. Per team, Hgb is stable and possible discharge today pending Hem/Onc final recommendation. No skilled or rehab needs. to transport. OK to discharge from standpoint. SIGNATURE: Raul Pate RN PATIENT NAME: Aisha Julien DATE: November 02, 2024 TIME: 11:25 [facility]03-10-2025 NoteHNO ID: [id number] Author: LEW ARITA MD Service: General Internal [...] original meaning may be extrapolated by contextual derivationFederal Medical Center, [id number] NoteHNO ID: [id number] Author: SUDHA SYED APRN.CIGARETTE CARTON SEALER Service: Gastroenterology Author Type: Nurse Practitioner Type: [...] time. Please call with questions and concerns. [facility] Center, [id number] Telephone encounter Note* Telephone Encounter - Melissa Mccann - 11/01/2024 9:44 AM EDT Triage encounter sent 11/01/24. Patient needs to be scheduled on December 02 for PET [facility]03-10-2025 Telephone encounter Note* Telephone Encounter - Melissa Mccann - 11/01/2024 9:42 AM EDT This form is used for MAIN CAMPUS APPOINTMENTS ONLY. Is this request for a [place] PET scan appointment? Yes: [employer] Provider: Melissa Mccann Requesting Person (Last Name, First Name): Roselyn Leonard Area Code + Phone/Pager: [phone] Who do we call to schedule this appointment? Other Contact: PSMA PET to be done at [facility]. Route to Jessy Guerra to schedule. Requesting Staff Roselyn Leonard Area Code + Phone/Pager: [phone] PET Orders (A delay in scheduling will [...] Send requests to P COORD REVIEW [facility]03-10-2025 Miscellaneous Notes* Telephone Encounter - Melissa Mccann - 11/01/2024 9:42 AM EDT This form is used for MAIN CAMPUS APPOINTMENTS ONLY. Is this request for a [place] PET scan appointment? Yes: Air Transportation Provider: Melissa Mccann Requesting Person (Last Name, First Name): Roselyn Leonard Area Code + Phone/Pager: [phone] Who do we call to schedule this appointment? Other Contact: PSMA PET to be done at [facility]. Route to Jessy Mari to schedule. Requesting Staff Roselyn Leonard Area Code + Phone/Pager: [phone] PET Orders (A delay in scheduling will [...] P COORD REVIEW MC documented in this encounterMansfield Hospital03-06-2025 Radiology Diagnostic [facility]TR[facility] [place] [address] [place] [address] CT Scan Report Signed Patient: Aisha Julien MR#: [id number] : 1955 Acct:[id number] Age/Sex: 69 / M ADM Date: 5 Loc: ER Room: Type: [facility] ER Attending Dr: Copies to: Do Darrius Ramos MD, RES~ Ordering Provider: Darrius Brown MD, RES Date of Service: 10/28/24 CT/CT abdomen pelvis w con: GI bleed ([id number]) CT/CT chest w con: cough, black emesis [...] are again seen, potentially hemangioma is . Thespleen, pancreas and adrenal glands show no acute [...] apparent wall thickening. No appendiceal inflammation is present.There is a tiny umbilical hernia containing fat. [...] superficial margin ofthe right gluteus muscle. There issome stranding within the subcutaneous fat at the [...] Génesis West M.D.10/28/2024 3:32 PM Dictation Location: [place] [address] Transcribed By: [facility] 10/28/24 1532 Dictated By: Génesis West MD 10/28/24 1509 Signed By: 10/28/24 1532 [facility] Work Phone: [phone] Telephone encounter Note* Telephone Encounter - Melissa Mccann - 10/25/2024 2:09 PM EST I have Mr. Julien flagged for his Pet scan for November. We have to send a phone encounter to triage this for approval. He is on my schedule to send encounter on Friday. [facility]03-03-2025 Telephone encounter Note* Telephone Encounter - Rosaline Jon [facility] - 10/25/2024 11:39 AM EST I reached out to Mr. Julien today regarding his upcoming Sandostatin injection and he notified me he retired 10/22/24. He now has [employer] insurance: [employer] ID [id number] plan# [id number] [id number] customer service [phone] He also stated he thinks he should be scheduled for a PET scan at least 3 weeks after his next injection (11/05) however, he does not currently have an appointment for a PET. Please advise. Thank you, Rosaline Jon RPh [facility] Work Phone: [phone] History of Present illness Narrative* Rene Cannon MD - 10/19/2024 9:30 AM EST Images from the original note were not included. Patient ID: Aisha Julien is a 69 y.o. male who presents for: Needed fasting labs/ordered not completed Hypertension Patient is here for follow-up of elevated blood pressure. He is not exercising and is adherent to alow-salt diet. Blood pressure is well controlled at [...] symptoms. He reports incomplete emptying and nocturia fourtimes a night. Onset of symptoms was several years ago and was gradual in onset. He has no personalhistory and no family history of prostate cancer. [...] mouth in the morning. Do not crush, chew,or split.. 90 tablet 3 losartan (Cozaar) 100 [...] and blood sugar to goal, staying well hydrated,avoiding NSAIDs, and aerobic exercises as tolerated. Continue to monitor longitudinally. 3. Stage 3a chronic kidney disease (HCC) (CMS/HCC) Chronic problem, unstable, progressing, defining the end organ damage of the nephropathy. I stressed the importance of keeping blood pressure and blood sugar to goal, staying well hydrated,and aerobic exercises as tolerated. Continue to monitor longitudinally 4. Microalbuminuria He is overdue for this and also has an order from October 13, 2024 5. Mixed hyperlipidemia (CMS/HCC) After review of the labs in the medical record I can not find any lipid profile since 2022. He doesstill have in order from October 13 that [...] if any problems occur. (Utilizing the original guidelines or the 2020 office/outpatient code guidelines [...] 90 tablet; Refill: 3 documented in this encounterNorthwest Medical [id number] Telephone encounter Note* Telephone Encounter - Rosaline Jon RPh - 10/15/2024 1:53 PM EST Patient's insurance now requires Sandostatin to be filled at [facility]. Please review and authorize Sandostatin rx. Thank you, Rosaline Jon RPh [facility]02-21-2025 Miscellaneous Notes* Telephone Encounter - Rosaline Jon RPh - 10/15/2024 1:53 PM EST Patient's insurance now requires Sandostatin to be filled at [facility]. Please review and authorize Sandostatin rx. Thank you, Rosaline Jon RPh documented in this encounterMansfield Hospital02-21-2025 NoteHNO ID: [id number] Author: CLAUDIA ROBERTS RN Service: ? Author Type: Registered Nurse Type: Progress Notes Filed: 10/15/2024 08:29 Note Text: Ok to treat per pharmacy. Claudia Roberts RNUniversity Hospitals Samar[facility]02-21-2025 History of Present illness Narrative* Claudia Roberts RN - 10/15/2024 8:02 AM EST Ok to treat per pharmacy. Claudia Roberts RN documented in this encounterMansfield Hospital01-30-2025 Telephone encounter Note * Telephone Encounter - Rosaline Jon RPh - 09/23/2024 4:13 PM EST Per [facility] - DOS 09/24/24 is covered on medical insurance (buy and bill). Future DOS - PA pending. Faxed in PA form 09/23/24. Rosaline Jon RPh [facility]01-30-2025 Miscellaneous Notes* Telephone Encounter - Rosaline Jon RPh - 09/23/2024 4:13 PM EST Per [facility] - DOS 09/24/24 is covered on medical insurance (buy and bill). Future DOS - PA pending. Faxed in PA form 09/23/24. Rosaline Jon RPh * Telephone Encounter - Rosaline Jon RPh - 09/22/2024 11:28 AM EST Office note faxed to above fax number. Advised to call back later today or tomorrow to see if they will approve the 09/24 dose under medical for a 1 time exception. Moving forward this would have to be approved and filled through specialty pharmacy. [facility] will review patient's benefits and fax a form to be completed by the office and faxed back in for pharmacy authorization determination. Once they receive this completed form they indicated a 3-72 TAT for determination. Call ref# [id number] Rosaline Jon RPh documented in this encounterMansfield Hospital01-29-2025 Telephone encounter Note * Telephone Encounter - Rosaline Jon RPh - 09/22/2024 11:28 AM EST Office note faxed to above fax number. Advised to call back later today or tomorrow to see if they will approve the 09/24 dose under medical for a 1 time exception. Moving forward this would have to be approved and filled through specialty pharmacy. [facility] will review patient's benefits and fax a form to be completed by the office and faxed back in for pharmacy authorization determination. Once they receive this completed form they indicated a 3-72 TAT for determination. Call ref# [id number] Rosaline Jon RPh [facility]01-24-2025 Telephone encounter Note* Telephone Encounter - Rosaline Jon RPh - 09/17/2024 3:33 PM EST Per patient's insurance, Sandostatin must now be billed and supplied by Pharmacy. Please review and approve the prescription so we can start the whitebag process. Thank you, Rosaline Jon RPh [facility] Work Phone: [phone]) 388-502401-24-2025 Miscellaneous Notes* Telephone Encounter - Rosaline Jon RPh - 09/17/2024 3:33 PM EST Per patient's insurance, Sandostatin must now be billed and supplied by Pharmacy. Please review and approve the prescription so we can start the whitebag process. Thank you, Rosaline Jon RPh documented in this encounterMansfield Hospital12-20-2024 Instructions* Patient Instructions* Reina Bridges - 08/13/2024 2:04 PM EST Sandostatin C9 today and q 3 weeks C10, 11 with no clinician Labs q 3 weeks Neuroendocrine PET on 12/02/2024 C12 Sandostatin same day just after scan - delayed by 1 week for scan RTC 1 week after scan to review documented in this encounterMansfield Hospital12-20-2024 History of Present illness Narrative* Roselyn Leonard MD - 08/13/2024 1:40 PM EST Images from the original note were not included. NAME: Aisha Julien [facility] NO.: [id number] DATE OF SERVICE: August 13, 2024 (Raoul) Some elements in this clinic note that are critical to medical decision making have been carefully reviewed and included from a prior clinic note dated: July 08, 2024 (Raoul) Referring Provider: Dr. Cleveland De León Additional Clinicians involved in Aisha Julien's care: [...] I am unsure if this is related toactive disease versus single episode. Additionally has a 1.7 cm irregularly marginated nodular massin the left apical lung that I'd like [...] of distal ileum metabolically avid lesion with adjacentpartially calcified implant representing biopsy-proven neuroendocrine tumor. ANILA [...] and/or Dotatate PET/CT, as clinically indicated. No hyperm etabolic/pathologic lymphadenopathy. MUSCULOSKELETAL: 6.9 cm RIGHT gluteus carole [...] are appreciated as above. Given the patient's history,the possibility of osseous metastases is not excluded. [...] Laparotomy, gastrojejunostomy (Bilroth II reconstruction), takedown of gastrocutaneousfistula, and placement of distal feeding tube 10/29/2023-11/07/2023 - Admitted at [place] - observation after surgery 10/01/2023 - CT [...] which could be related to osteopenia or infiltrativemetastatic disease (and could be further differentiated with Dotatate PET-CT). 08/28/2023 - CT Brain: No CT evidence of acute intracranial process 08/28/2023 - CXR: No evidence of active disease. 08/28/2023-09/05/2023 - Admitted at [place] - Patient sent by surgery with failure [...] indeterminate hepatic hypodensities. 08/07/2023-08/17/2023 - Admitted at [place] - Nausea & Vomiting: Sent by GI for weight loss and unable to keep anything down since June. 07/25/2023 - EGD with biopsy: - Duodenal mass - [facility] - Dr. Linder 07/24/2023 - CT A/P: at [facility] A mass is noted in the region [...] abdominopelvic metastases. His Chromogranin A has also increasedfrom 05/2024-06/2024. He endorses new occasional abdominal pain. [...] exposure due to work. He was never acigarette smoker, does smoke the occasional cigar and [...] subsequently fell. He reports feeling nauseous prior tosyncope. He was found to be hypotensive. He [...] metastases in 06/2023. He had an open GJbypass on 10/28. He would like to start systemic therapy (Sandostatin) here in [place]. Incidents of nausea after eating got more frequent over the past two years prior to diagnosis. He has a PICC line currently, PEG-J tube did not work well for him. He is not in pain now, a littlesore on site of stitches. Prior History from Dr. Cleveland De León's Progress Note on 11/17/2023: Assessment & Diagnosis: [...] PICC line since no TPN or IV hydrationwill be needed. Referral to medical oncology to [...] which included preparing to see the patient, egbv-ci-bwow patient care, completing clinical documentation, performing a medically appropriate examination, counseling and educating the patient/family/caregiver, ordering medications, tests, or procedures, independently interpreting results (not separately reported), communicating results to the patient/family/caregiver, and care coordination (not separately reported). Roselyn Leonard MD, CPE Hematology and Oncology Services Provided at: [place], [place] Scribe Attestation: This note was scribed by Reina Bridges on August 13, 2024 under the direction and supervisionof Dr. Roselyn Leonard. I attest that all of the information documented is correct to the best of my knowledge. Provider Attestation: I, Roselyn Leonard MD, attest that all information documented by the above scribe is correct, and was supervised by me and under my direction. CC: Samer Genet [address] [facility] [address] Rene Cannon MD, MD [address] [facility] [id number] documented in this encounterMansfield Hospital12-20-2024 NoteUniversity Hospitals Samaritan Medical Center12-18-2024 Telephone encounter Note* Telephone Encounter - Jessy Butcher RN - 08/11/2024 2:31 PM EST Pt notified and verbalizes understanding. Jessy Butcher RN [facility] Work Phone: 1(671) 347-969012-18-2024 Telephone encounter Note* Telephone Encounter - Jessy Butcher RN - 08/11/2024 2:31 PM EST ----- Message from Roselyn Leonard MD sent at 08/11/2024 12:40 PM EST ----- Hi Aisha - looks like the disease may be worsening - let's talk more when I see you this week. [facility]12-18-2024 Miscellaneous Notes* Telephone Encounter - Jessy Butcher RN - 08/11/2024 2:31 PM EST Pt notified and verbalizes understanding. Jessy Butcher RN * Telephone Encounter - Jessy Butcher RN - 08/11/2024 2:31 PM EST ----- Message from Roselyn Leonard MD sent at 08/11/2024 12:40 PM EST ----- Hi Aisha - looks like the disease may be worsening - let's talk more when I see you this week. documented in this encounterMansfield Hospital12-10-2024 History of Present illness Narrative* Henrik Pinto, RT(R) - 08/03/2024 7:30 AM EST RADIOLOGY SERVICE PROGRESS NOTE SERVICE DATE: 08/03/2024 [...] PATIENT PRESENTS WITH AN IMPLANTABLE OR ATTACHED [employer]: No CREATININE: Creatinine Date Value Ref Range [...] TYPE: NM INJECT: DOTATATE PET. 4.7 mCi Vu07-Lovlamuw. No other medications given.. ADMINISTRATION TIME: 716 PATIENT DISCHARGED TO: Ambulatory patient, left OR department area. Is this a therapy: No A Diagnostic radioactive procedure has taken place, with no further precautions necessary other than routine body substance precautions. More information regarding radiation safety can be found usingthis link: [email or web address] SIGNATURE: PERRY Allison) PATIENT NAME: Aisha Julien DATE: August 03, 2024 TIME: 7:20 AM PAGER/CONTACT #: documented in this encounterMansfield Hospital12-10-2024 NoteUniversity Hospitals Samaritan Medical Center11-18-2024 Telephone encounter Note* Telephone Encounter - Indigo Ayala - 07/12/2024 10:22 AM EST 07/12/2024 1st Attempt, LVM [facility]11-18-2024 Miscellaneous Notes* Telephone Encounter - Indigo Ayala - 07/12/2024 10:22 AM EST 07/12/2024 1st Attempt, LVM * Telephone Encounter - Lianet Donnelly RN - 07/08/2024 9:46 AM EST DOTATATE Comments for Overedge Machine Operator: N/A Will the patient need anesthesia: no Treatment: Sandostatin Long Acting Date of Last Treatment: 06-17-24 Date of Future Treatment: being held till after PET scan Primary Insurance: Chase GAMEZ Imaging: PET Scan: 06-03-24 F-18 FDG OSH Diagnosis: 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 Additional Information/Imaging: N/A Dotatate 81332/A9587 Gallium Dotatate (NetSpot) C7B.8, R91.8 Auth#: no precert needed Date Range: 07-09-24 to 08-24-24 for 1 Holman NPI: Roselyn Leonard [id number] Member ID: Chase Moreno [id number] Site/Contact: SADAF Moreno provider line Case/Ref#: Notes: per recording no precet needed for PET/Ct Neuroendocrine scan cpt 20655 / A9587 call reference # [id number] Route to or Requested Scheduling Pool: P PET ALARM INSTALLER P [facility] CLERICAL POOL([place]), [facility] * Telephone Encounter - Hyacinth Mcpherson - 07/08/2024 9:15 AM EST This form is used for MAIN CAMPUS APPOINTMENTS ONLY. Is this request for a [place] PET scan appointment? Yes: Air Transportation Provider: Hyacinth Wheeler Requesting Person (Last Name, First Name): floraRoselyn childress Area Code + Phone/Pager: [phone] Who do we call to schedule this appointment? 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 Additional Information/Imaging: N/A Dotatate 57114/A9587 Gallium Dotatate (NetSpot) C7B.8, R91.8 Auth#: no precert needed Date Range: 07-09-24 to 08-24-24 for 1 dos NPI: Roselyn Leonard [id number] Member ID: Chase FARRELL Ill [id number] Site/Contact: BUD Moreno provider line Case/Ref#: Notes: per recording no precet needed for PET/Ct Neuroendocrine scan cpt 82881 / A9587 call reference # [id number] Route to or Requested Scheduling Pool: P PET ALARM INSTALLER P [facility] CLERICAL POOL([place]), Lucina BARRIENTOS PENDING SALE TO [facility]11-14-2024 Telephone encounter Note* Telephone Encounter - Hyacinth Mcpehrson - 07/08/2024 9:15 AM EST This form is used for MAIN CAMPUS APPOINTMENTS ONLY. Is this request for a [place] PET scan appointment? Yes: Air Transportation Provider: Hyacinth Wheeler Requesting Person (Last Name, First Name): Roselyn Leonard Area Code + Phone/Pager: [phone] Who do we call to schedule this appointment? Patient Requesting Staff Hyacinth Arellano Area Code + Phone/Pager: [phone] PET Orders (A delay in scheduling will [...] Send requests to P COORD REVIEW [facility]11-14-2024 Instructions* Patient Instructions* Reina Bridges - 07/08/2024 9:11 AM EST Dotatate PET when approved Hold next week's Sandostatin for scan RTC 1 week after scan to review Labs same day Plan for Sandostatin same day documented in this encounterMansfield Hospital11-14-2024 History of Present illness Narrative* Roselyn Leonard MD - 07/08/2024 9:00 AM EST Images from the original note were not included. NAME: Wily Aisha [facility] NO.: [id number] DATE OF SERVICE: July 08, 2024 (Raoul) Some elements in this clinic note that are critical to medical decision making have been carefully reviewed and included from a prior clinic note dated: June 03, 2024 (Raoul) Referring Provider: Dr. Cleveland De León Additional Clinicians involved in Aisha Naveen Wily's care: DIAGNOSIS: Neuroendocrine tumor (SB - Distal [...] I am unsure if this is related toactive disease versus single episode. Additionally has a 1.7 cm irregularly marginated nodular massin the left apical lung that I'd like [...] and/or Dotatate PET/CT, as clinically indicated. No hyperm etabolic/pathologic lymphadenopathy. MUSCULOSKELETAL: 6.9 cm RIGHT gluteus carole [...] are appreciated as above. Given the patient's history,the possibility of osseous metastases is not excluded. [...] Laparotomy, gastrojejunostomy (Bilroth II reconstruction), takedown of gastrocutaneousfistula, and placement of distal feeding tube 10/29/2023-11/07/2023 - Admitted at [place] - observation after surgery 10/01/2023 - CT [...] which could be related to osteopenia or infiltrativemetastatic disease (and could be further differentiated with Dotatate PET-CT). 08/28/2023 - CT Brain: No CT evidence of acute intracranial process 08/28/2023 - CXR: No evidence of active disease. 08/28/2023-09/05/2023 - Admitted at [place] - Patient sent by surgery with failure [...] indeterminate hepatic hypodensities. 08/07/2023-08/17/2023 - Admitted at [place] - Nausea & Vomiting: Sent by GI for weight loss and unable to keep anything down since June. 07/25/2023 - EGD with biopsy: - Duodenal mass - [facility] - Dr. Linder 07/24/2023 - CT A/P: at [facility] A mass is noted in the region [...] exposure due to work. He was never acigarette smoker, does smoke the occasional cigar and [...] subsequently fell. He reports feeling nauseous prior tosyncope. He was found to be hypotensive. He [...] metastases in 06/2023. He had an open GJbypass on 10/28. He would like to start systemic therapy (Sandostatin) here in [place]. Incidents of nausea after eating got more frequent over the past two years prior to diagnosis. He has a PICC line currently, PEG-J tube did not work well for him. He is not in pain now, a littlesore on site of stitches. Prior History from Dr. Cleveland De León's Progress Note on 11/17/2023: Assessment & Diagnosis: [...] PICC line since no TPN or IV hydrationwill be needed. 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 Roselyn Leonard MD, CPE Hematology and Oncology Services Provided at: [facility], [place], [place] Scribe Attestation: This note was scribed by Renia Bridges on July 08, 2024 under the direction and supervisionof Dr. Roselyn Leonard. I attest that all of the information documented is correct to the best of my knowledge. Provider Attestation: I, Roselyn Leonard MD, attest that all information documented by the above scribe is correct, and was supervised by me and under my direction. CC: Samer Genet [address] [facility] [address] Rene Cannon MD, MD [address] [facility] [phone] documented in this encounterMansfield Hospital11-14-2024 NoteUniversity Hospitals Samaritan [facility] Center10-10-2024 Telephone encounter Note* Telephone Encounter - Hyacinth Mcpherson - 06/03/2024 4:08 PM EDT Shruti Butcher to call final pet scan results per Dr Henry. [facility]10-10-2024 Miscellaneous Notes* Telephone Encounter - Hyacinth Mcpherson - 06/03/2024 4:08 PM EDT Shruti Butcher to call final pet scan results per Dr Henry. documented in this encounterMansfield Hospital10-10-2024 Instructions* Patient Instructions* Roselyn Leonard MD - 06/03/2024 3:54 PM EDT Shruti Butcher please call final result of PET/CT Continue Sandostatin LAR next on 06/17/2024 and q 4 weeks RTC 07/15/2024 labs same day. documented in this encounterMansfield Hospital10-10-2024 History of Present illness Narrative* Roselyn Leonard MD - 06/03/2024 3:30 PM EDT Images from the original note were not included. NAME: Aisha Julien [facility] NO.: [id number] DATE OF SERVICE: June 03, 2024 (Raoul) Some elements in this clinic note that are critical to medical decision making have been carefully reviewed and included from a prior clinic note dated: May 20, 2024 (Raoul) Referring Provider: Dr. Cleveland De León Additional Clinicians involved in Aisha Julien's care: [...] I am unsure if this is related toactive disease versus single episode. Additionally has a 1.7 cm irregularly marginated nodular massin the left apical lung that had like [...] are appreciated as above. Given the patient's history,the possibility of osseous metastases is not excluded. [...] Laparotomy, gastrojejunostomy (Bilroth II reconstruction), takedown of gastrocutaneousfistula, and placement of distal feeding tube 10/29/2023-11/07/2023 - Admitted at [place] - observation after surgery 10/01/2023 - CT [...] which could be related to osteopenia or infiltrativemetastatic disease (and could be further differentiated with Dotatate PET-CT). 08/28/2023 - CT Brain: No CT evidence of acute intracranial process 08/28/2023 - CXR: No evidence of active disease. 08/28/2023-09/05/2023 - Admitted at [place] - Patient sent by surgery with failure [...] indeterminate hepatic hypodensities. 08/07/2023-08/17/2023 - Admitted at [place] - Nausea & Vomiting: Sent by GI for weight loss and unable to keep anything down since June. 07/25/2023 - EGD with biopsy: - Duodenal mass - [facility] - Dr. Linder. 07/24/2023 - CT A/P: at [facility] A mass is noted in the region [...] exposure due to work. He was never acigarette smoker, does smoke the occasional cigar and [...] subsequently fell. He reports feeling nauseous prior tosyncope. He was found to be hypotensive. He [...] metastases in 06/2023. He had an open GJbypass on 10/28. He would like to start systemic therapy (Sandostatin) here in [place]. Incidents of nausea after eating got more frequent over the past two years prior to diagnosis. He has a PICC line currently, PEG-J tube did not work well for him. He is not in pain now, a littlesore on site of stitches. Prior History from Dr. Cleveland De León's Progress Note on 11/17/2023: Assessment & Diagnosis: [...] PICC line since no TPN or IV hydrationwill be needed. 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 Roselyn Leonard MD, CPE Hematology and Oncology Services Provided at: [facility], [place], [place] Scribe Attestation: This note was scribed by Reina Bridges on June 03, 2024 under the direction and supervision of Dr. Roselyn Leonard. I attest that all of the information documented is correct to the best of myknowledge. Provider Attestation: I, Roselyn Leonard MD, attest that all information documented by the above scribe is correct, and was supervised by me and under my direction. CC: Samer Avelinamaru [address] [facility] [address] Rene Cannon MD, MD [address] [facility] [phone] documented in this encounterMansfield Hospital10-10-2024 History of Present illness Narrative* Solange Harmon RN - 06/03/2024 12:45 PM EDT Radiology Service Progress Note DATE OF SERVICE: [...] DATE: June 03, 2024 TIME: 12:59 PM * Jessy Guerra RT(R) - 06/03/2024 12:45 PM EDT RADIOLOGY SERVICE PROGRESS NOTE SERVICE DATE: 06/03/2024 SERVICE TIME: 1:01 PM PATIENT IDENTITY VERIFICATION COMPLETED USING TWO (2) STANDARD IDENTIFIERS: Name and Date of confirmed by patient verbally POST EXAM PIV STATUS: Discontinued PROCEDURE TYPE: NM INJECT: PET/CT WHOLE BODY SCAN. 9.6 mCi F18 FDG. No other medications given.. ADMINISTRATION TIME: 99 PATIENT DISCHARGED TO: Ambulatory patient, left OR department area. A Diagnostic radioactive procedure has taken place, with no further precautions necessary other than routine body substance precautions. More information regarding radiation safety can be found usingthis link: [email or web address] SIGNATURE: RT Norman(Rosales) PATIENT NAME: Aisha Julien DATE: June 03, 2024 TIME: 1:01 PM PAGER/CONTACT #: documented in this encounterMansfield Hospital09-26-2024 Instructions* Patient Instructions* Reina Bridges - 05/20/2024 8:57 AM EDT Whole body PET/CT in 1-2 weeks RTC same day Continue with Sandostatin LAR today and q 4 weeks Labs prior to treatment documented in this encounterMansfield Hospital09-26-2024 Nurse Note* Catalina Barnett MA - 05/20/2024 8:38 AM EDT Patient states that he got light headed and dizzy at work the medical did check blood pressure, it was low. Catalina White MA [facility]09-[facility] Nurse Note* Catalina White MA - 05/20/2024 8:38 AM EDT Patient states that he got light headed and dizzy at work the medical did check blood pressure, it was low. Catalina White MA documented in this encounterMansfield Hospital09-26-2024 History of Present illness Narrative* Roselyn Leonard MD - 05/20/2024 8:30 AM EDT Images from the original note were not included. NAME: Aisha Julien [facility] NO.: [id number] DATE OF SERVICE: May 20, 2024 (Raoul) Some elements in this clinic note that are critical to medical decision making have been carefully reviewed and included from a prior clinic note dated: March 24, 2024 (Raoul) Referring Provider: Dr. Cleveland De León Additional Clinicians involved in Aisha Julien's care: [...] I am unsure if this is related toactive disease versus single episode. Additionally has a 1.7 cm irregularly marginated nodular massin the left apical lung that had like [...] are appreciated as above. Given the patient's history,the possibility of osseous metastases is not excluded. [...] Laparotomy, gastrojejunostomy (Bilroth II reconstruction), takedown of gastrocutaneousfistula, and placement of distal feeding tube 10/29/2023-11/07/2023 - Admitted at [place] - observation after surgery 10/01/2023 - CT [...] which could be related to osteopenia or infiltrativemetastatic disease (and could be further differentiated with Dotatate PET-CT). 08/28/2023 - CT Brain: No CT evidence of acute intracranial process 08/28/2023 - CXR: No evidence of active disease. 08/28/2023-09/05/2023 - Admitted at [place] - Patient sent by surgery with failure [...] indeterminate hepatic hypodensities. 08/07/2023-08/17/2023 - Admitted at [place] - Nausea & Vomiting: Sent by GI for weight loss and unable to keep anything down since June. 07/25/2023 - EGD with biopsy: - Duodenal mass - [facility] - Dr. Linder. 07/24/2023 - CT A/P: at [facility] A mass is noted in the region [...] exposure due to work. He was never acigarette smoker, does smoke the occasional cigar and [...] subsequently fell. He reports feeling nauseous prior tosyncope. He was found to be hypotensive. He [...] metastases in 06/2023. He had an open GJbypass on 10/28. He would like to start systemic therapy (Sandostatin) here in [place]. Incidents of nausea after eating got more frequent over the past two years prior to diagnosis. He has a PICC line currently, PEG-J tube did not work well for him. He is not in pain now, a littlesore on site of stitches. Prior History from Dr. Cleveland De León's Progress Note on 11/17/2023: Assessment & Diagnosis: [...] PICC line since no TPN or IV hydrationwill be needed. Referral to medical oncology to consider systemic therapy (Sandostatin) Return to surgery clinic as needed REVIEW OF SYSTEMS Per HPI and otherwise negative by full review of organ systems. ECOG PERFORMANCE STATUS: 1 PHYSICAL EXAMINATION: Vitals: BP 132/85 Pulse 78 Temp (Src) 97.3 (Temporal) Resp 18 Ht 5' 9.488 (1.77m) Wt 170lb (77.1kg) SpO2 100% BMI 24.75 kg/(m^2). Body [...] which included preparing to see the patient, [id number] patient care, completing clinical documentation, performing a medically appropriate examination, counseling and educating the patient/family/caregiver, ordering medications, tests, or procedures, independently interpreting results (not separately reported), communicating results to the patient/family/caregiver, and care coordination (not separately reported). Roselyn Leonard MD, CPE Hematology and Oncology Services Provided at: [place], [place] Scribe Attestation: This note was scribed [...] me and under my direction. CC: Cleveland De León [address] [facility] [address] Rene Cannon MD, MD [address] [facility] [phone] documented in this encounterMansfield Hospital09-25-2024 NoteREFERRAL LAB 1 (DROP-DOWN)[facility]09-19-2024 History of Present illness Narrative * Maria Antonia Greer, RT(R) - 05/13/2024 7:45 AM EDT Radiology Service Progress Note PATIENT NAME: Aisha [...] PATIENT PRESENTS WITH AN IMPLANTABLE OR ATTACHED [employer]: No RADIOLOGY DEPARTMENT: CT; Exam(s) Completed: Chest and Pancreas PERIPHERAL IV DATA: Site assessment: Clean,Dry and Intact, Site disposition Discontinued 20g left ac SIGNED BY: RT Saundra(R) May 13, 2024 8:19 AM * Solange Harmon RN - 05/13/2024 7:45 AM EDT Radiology Service Progress Note DATE OF SERVICE: [...] 2024 TIME: 8:45 AM documented in this encounterMansfield Hospital09-03-2024 History of Present illness Narrative* Rene Cannon MD - 04/27/2024 9:30 AM EDT Images from the original note were not included. Patient ID: Aisha Julien is a 68 y.o. male who presents for: Hypertension Patient is here for follow-up of elevated blood pressure. He is not exercising and is adherent to alow-salt diet. Blood pressure is not well controlled [...] 04/21/2024 12.9 % Final [facility] EOSINOPHIL # D AUTO 04/21/2024 0.54 (H) <0.46 k/uL Final [facility] BASOPHILS/LEUK NFR BLD AUTO 04/21/2024 1.0 % Final [facility] BASOPHILS # D AUTO 04/21/2024 0.04 <0.11 k/uL Final IMM [...] 74 - 99 mg/dL Final Comment: The [place] [employer] (ADA) provides guidance for cutoff values for fasting glucose and random glucose. The ADA defines fasting as no caloric intake for at least 8 hours. Fastingplasma glucose results between 100 to 125 mg/dL [...] Standards of Medical Care in Diabetes 2016, [place] [employer]. Diabetes Care. 2016.39(Suppl 1). [facility] [...] the eGFRmay not accurately reflect actual GFR. [facility] IRON [...] Chromogranin A test was performed using the AffinioS CgA II KRYPTOR method. Results obtained withdifferent assay methods or kits cannot be used [...] developed and its performance characteristics determined by [facility]. It has not been cleared or approved by the US Food and Drug Administration. This test was performed in a CLIA certified laboratory and is intended for clinical purposes. Performed By: [facility] [address] [place] [id number] Telemetry Nurse: Chapin Hollis MD, PhD CLIA Number: [id number] [facility] Result Encounter on 03/24/2024 Component Date [...] 0.04 <0.11 k/uL Final [facility] GRANULOCYTES/LEUK NFR D AUTO 03/24/2024 0.3 % Final IMM GRANULOCYTES [...] 74 - 99 mg/dL Final Comment: The [place] Diabetes Association (ADA) provides guidance for cutoff values for fasting glucose and random glucose. The ADA defines fasting as no caloric intake for at least 8 hours. Fastingplasma glucose results between 100 to 125 mg/dL [...] Standards of Medical Care in Diabetes 2016, [place] [employer]. Diabetes Care. 2016.39(Suppl 1). [facility] [...] the eGFRmay not accurately reflect actual GFR. [facility] GASTRIN SERPL-MCNC 03/24/2024 52.1 <115.0 pg/mL Final The Gastrin test was performed using the Siemens [employer] chemiluminescent immunometric method. Results obtained with different assay methods or kits cannot be used interchangeably. [facility] CGA SERPL-MCNC 03/24/2024 169.7 <187.0 ng/mL Final The Chromogranin A test was performed using the Savorfull CgA II KRYPTOR method. Results obtained withdifferent assay methods or kits cannot be used interchangeably. [facility] SEROTONIN SERUM 03/24/2024 1426 (H) 50 - 220 ng/mL Final Comment: TEST INFORMATION: Serotonin, Serum This test was developed and its performance characteristics determined by [facility]. It has not been cleared or approved by the US Food and Drug Administration. This test was performed in a CLIA certified laboratory and is intended for clinical purposes. Performed By: [facility] [address] [place] [id number] Telemetry Nurse: Chapin Hollsi MD, PhD CLIA Number: [id number] [facility] VASOACTIVE INTESTINAL PEPTIDE 03/24/2024 36 pg/mL Final Comment: ADDITIONAL INFORMATION Adult Reference Range(s): Up to 36 pg/mL (mean 14) This test was developed and its performance characteristics determined by [facility]. It has not been cleared or approved by the US Food and Drug Administration. The FDA had determined that such clearance or approval is not necessary. Test Performed by: [facility] [address] [place] [address] [employer]inis[facility] Result Encounter on 02/24/2024 Component Date [...] - 12.7 fL Final [facility] NEUTROPHILS/LEUK NFR D AUTO 02/24/2024 64.6 % Final [facility] NEUTROPHILS [...] 02/24/2024 0.3 % Final [facility] GRANULOCYTES # D AUTO 02/24/2024 <0.03 <0.10 k/uL Final [facility] [...] 74 - 99 mg/dL Final Comment: The [place] Diabetes Association (ADA) provides guidance for cutoff values for fasting glucose and random glucose. The ADA defines fasting as no caloric intake for at least 8 hours. Fastingplasma glucose results between 100 to 125 mg/dL [...] Standards of Medical Care in Diabetes 2016, [place] [employer]. Diabetes Care. 2016.39(Suppl 1). [facility] [...] the eGFRmay not accurately reflect actual GFR. [facility] GASTRIN SERPL-MCNC 02/24/2024 22.0 <115.0 pg/mL Final The Gastrin test was performed using the Siemens [employer]ite chemiluminescent immunometric method. Results obtained with different assay methods or kits cannot be used interchangeably. [facility] SEROTONIN SERUM 02/24/2024 1886 (H) 50 - 220 ng/mL Final Comment: TEST INFORMATION: Serotonin, Serum This test was developed and its performance characteristics determined by [facility]. It has not been cleared or approved by the US Food and Drug Administration. This test was performed in a CLIA certified laboratory and is intended for clinical purposes. Performed By: [facility] [address] [place] [id number] Telemetry Nurse: Chapin Hollis MD, PhD CLIA Number: [id number] [facility] CGA SERPL-NC 02/24/2024 187.8 (H) <187.0 ng/mL Final The Chromogranin A test was performed using the Savorfull CgA II KRYPTOR method. Results obtained withdifferent assay methods or kits cannot be used interchangeably. [facility] VASOACTIVE INTESTINAL PEPTIDE 02/24/2024 23 pg/mL Final Comment: ADDITIONAL INFORMATION Adult Reference Range(s): Up to 36 pg/mL (mean 14) This test was developed and its performance characteristics determined by [facility]. It has not been cleared or approved by the US Food and Drug Administration. The FDA had determined that such clearance or approval is not necessary. Test Performed by: [facility] [address] [place] [address] [employer]inis[facility] Result Encounter on 01/28/2024 Component Date [...] 74 - 99 mg/dL Final Comment: The [place] Diabetes Association (ADA) provides guidance for cutoff values for fasting glucose and random glucose. The ADA defines fasting as no caloric intake for at least 8 hours. Fastingplasma glucose results between 100 to 125 mg/dL [...] Standards of Medical Care in Diabetes 2016, [place] [employer]. Diabetes Care. 2016.39(Suppl 1). [facility] [...] the eGFRmay not accurately reflect actual GFR. [facility] IRON [...] Chromogranin A test was performed using the AffinioS CgA II KRYPTOR method. Results obtained withdifferent assay methods or kits cannot be used [...] 74 - 99 mg/dL Final Comment: The [place] Diabetes Association (ADA) provides guidance for cutoff values for fasting glucose and random glucose. The ADA defines fasting as no caloric intake for at least 8 hours. Fastingplasma glucose results between 100 to 125 mg/dL [...] Standards of Medical Care in Diabetes 2016, [place] Diabetes Association. Diabetes Care. 2016.39(Suppl 1). [facility] [...] the eGFRmay not accurately reflect actual GFR. [facility] IRON SERPL-MCNC 12/03/2023 67 41 - 186 ug/dL Final [facility] 12/03/2023 383 232 - 386 ug/dL Final [facility] IRON/TIBC SERPL-SRTO 12/03/2023 17.5 15.0 - 57.0 % Final [facility]IT B12 [facility] 12/03/2023 698 232 - 1,245 pg/mL Final [facility]IN [facility] 12/03/2023 260.0 30.3 - 565.7 ng/mL Final [facility]ATE [facility] 12/03/2023 8.4 >4.7 ng/mL Final No Known Allergies Current Outpatient Medications on File Prior to Visit Medication Sig Dispense Refill finasteride (Proscar) 5 MG tablet Take 1 tablet (5 mg) by mouth in the morning. Do not crush, chew,or split.. 90 tablet 3 losartan (Cozaar) 25 [...] and blood sugar to goal, staying well hydrated,avoiding NSAIDs, and aerobic exercises as tolerated. Continue to monitor longitudinally. 3. Stage 2 chronic kidney disease Chronic problem, stable, defining the end organ damage of the nephropathy. I stressed the importance of keeping blood pressure and blood sugar to goal, staying well hydrated,and aerobic exercises as tolerated. Continue to monitor longitudinally. 4. Microalbuminuria Chronic problem, defining an aspect the nephropathy, with significant risk, uncertain progression requiring longitudinal monitoring, and moderate decision making. Microalbuminuria describes a moderate increase in the level of urine albumin. Normally, the kidneysfilter albumin, so if the kidney leaks small amounts of albumin into the urine then it is a indicator of chronic kidney disease. Microalbuminuria is an independent indicator of increased cardiovascular risk among individuals andtherefore can be used for risk stratification for [...] his gastrojejunal bypass surgery documented in this encounterNorthwest [facility] [id number] Instructions* Patient Instructions* Posavac, Reina - 03/24/2024 11:20 AM EDT Continue with Sandostatin LAR today and q 4 weeks Labs prior to treatment Anemia labs in [address] Pancreas/Pelvis in 7 weeks Labs same day - include tumor markers RTC in 8 weeks for Sandostatin No labs documented in this encounterMansfield Hospital07-31-2024 History of Present illness Narrative* Roselyn Leonard MD - 03/24/2024 11:00 AM EDT Images from the original note were not included. NAME: Aisha Julien [facility] NO.: [id number] DATE OF SERVICE: March 24, 2024 (Raoul) Some elements in this clinic note that are critical to medical decision making have been carefully reviewed and included from a prior clinic note dated: February 24, 2024 (Britney) Referring Provider: Dr. Cleveland De León Additional Clinicians involved in Aisha Julien's care: [...] Laparotomy, gastrojejunostomy (Bilroth II reconstruction), takedown of gastrocutaneousfistula, and placement of distal feeding tube 10/29/2023-11/07/2023 - Admitted at [place] - observation after surgery 10/01/2023 - CT [...] which could be related to osteopenia or infiltrativemetastatic disease (and could be further differentiated with Dotatate PET-CT). 08/28/2023 - CT Brain: No CT evidence of acute intracranial process 08/28/2023 - CXR: No evidence of active disease. 08/28/2023-09/05/2023 - Admitted at [place] - Patient sent by surgery with failure [...] indeterminate hepatic hypodensities. 08/07/2023-08/17/2023 - Admitted at [place] - Nausea & Vomiting: Sent by GI for weight loss and unable to keep anything down since June. 07/25/2023 - EGD with biopsy: Duodenal mass - [facility] - Dr. Linder. 07/24/2023 - CT A/P: at [facility] A mass is noted in the region [...] metastases in 06/2023. He had an open GJbypass on 10/28. He would like to start systemic therapy (Sandostatin) here in [place]. Incidents of nausea after eating got more frequent over the past two years prior to diagnosis. He has a PICC line currently, PEG-J tube did not work well for him. He is not in pain now, a littlesore on site of stitches. Prior History from Dr. Cleveland De León's Progress Note on 11/17/2023: Assessment & Diagnosis: [...] PICC line since no TPN or IV hydrationwill be needed. Referral to medical oncology to [...] which included preparing to see the patient, [id number] patient care, completing clinical documentation, performing a medically appropriate examination, counseling and educating the patient/family/caregiver, ordering medications, tests, or procedures, independently interpreting results (not separately reported), communicating results to the patient/family/caregiver, and care coordination (not separately reported). Roselyn Leonard MD, CPE Hematology and Oncology Services Provided at: [place], [place] Scribe Attestation: This note was scribed [...] me and under my direction. CC: Cleveland De León [address] [facility] [id number] Rene Cannon MD, MD [address] [facility] [facility] [phone] documented in this encounterMansfield Hospital07-02-2024 History of Present illness Narrative* Joy Tan PA-C - 02/24/2024 10:00 AM EDT Images from the original note were not included. NAME: Aisha Julien [facility] NO.: [id number] DATE OF SERVICE: February 24 2024 (Elements copied from Dr. Leonard's note dated January 28, 2024, have been reviewed and updated whereappropriate, and all reflect current assessment and medical decision making during today's encounter, February 24, 2024) Referring Provider: Dr. Cleveland De León Additional Clinicians involved in Aisha Juline's care: DIAGNOSIS: Neuroendocrine tumor (SB - Distal [...] in disease. Symptoms have improved. Continue with SandostatinLAR today and return in 4 weeks with [...] Laparotomy, gastrojejunostomy (Bilroth II reconstruction), takedown of gastrocutaneousfistula, and placement of distal feeding tube 10/29/2023-11/07/2023 - Admitted at [place] - Observation after surgery 10/01/2023 - CT [...] which could be related to osteopenia or infiltrativemetastatic disease (and could be further differentiated with Dotatate PET-CT). 08/28/2023 - CT Brain: No CT evidence of acute intracranial process 08/28/2023 - CXR: No evidence of active disease. 08/28/2023-09/05/2023 - Admitted at [place] - Patient sent by surgery with failure [...] indeterminate hepatic hypodensities. 08/07/2023-08/17/2023 - Admitted at [place] - Nausea & Vomiting: Sent by GI for weight loss and unable to keep anything down since June. 07/25/2023 - EGD with biopsy: Duodenal mass - [facility] - Dr. Linder. 07/24/2023 - CT A/P: at [facility] A mass is noted in the region [...] metastases in 06/2023. He had an open GJbypass on 10/28. He would like to start systemic therapy (Sandostatin) here in [place]. Incidents of nausea after eating got more frequent over the past two years prior to diagnosis. He has a PICC line currently, PEG-J tube did not work well for him. He is not in pain now, a littlesore on site of stitches. Prior History from Dr. Cleveland De León's Progress Note on 11/17/2023: Assessment & Diagnosis: [...] PICC line since no TPN or IV hydrationwill be needed. Referral to medical oncology to consider systemic therapy (Sandostatin) Return to surgery clinic as needed REVIEW OF SYSTEMS Per HPI and otherwise negative by full review of organ systems. ECOG PERFORMANCE STATUS: 1 PHYSICAL EXAMINATION: Vitals: BP 153/84 Pulse 73 Temp (Src) 97.4 (Temporal) Resp 16 Ht 5' 9.488 (1.77m) Wt 167lb 15.9 oz (76.2kg) SpO2 100% BMI 24.46 [...] which included preparing to see the patient, [id number] patient care, completing clinical documentation, obtaining and/or reviewing separately obtained history, performing a medically appropriate examination, counseling and educating the pat ient/family/caregiver, ordering medications, tests, or procedures, communicating with other HCPs (not separately reported), independently interpreting results (not separately reported), communicatingresults to the patient/family/caregiver, and care coordination (not separately reported). Joy Tan PA-C Hematology and Oncology Services Provided at: [place], [place] CC: [facility] [address] [facility] [address] Rene Cannon MD, [address] [phone] documented in this encounterMansfield Hospital07-01-2024 Telephone encounter Note * Telephone Encounter - Trudi Pickering MA - 02/23/2024 5:11 PM EDT Pt will need labs placed if needed for appt on 02/23. Trudi Pickering MA [facility]07-[facility] Miscellaneous Notes* Telephone Encounter - Trudi Pickering MA - 02/23/2024 5:11 PM EDT Pt will need labs placed if needed for appt on 02/23. Trudi Pickering MA documented in this encounterMansfield Hospital06-27-2024 Telephone encounter Note * Telephone Encounter - Jessy Butcher RN - 02/19/2024 11:35 AM EDT Pt notified and verbalizes understanding. Jessy Butcher RN [facility] Work Phone: [phone]) 672-297106-27-2024 Miscellaneous Notes* Telephone Encounter - Jessy Butcher RN - 02/19/2024 11:35 AM EDT Pt notified and verbalizes understanding. Jessy Butcher RN * Telephone Encounter - Jessy Butcher RN - 02/19/2024 10:08 AM EDT 2nd call placed to pt. No answer. Message left requesting call back. Jessy Butcher RN * Telephone Encounter - Jessy Butcher RN - 02/18/2024 1:52 PM EDT Call placed to pt. No answer. Unable to leave a message. Jessy Butcher RN * Telephone Encounter - Jessy Butcher RN - 02/18/2024 1:52 PM EDT ----- Message from Roselyn Leonard MD sent at 02/18/2024 12:53 PM EDT ----- Scan showing improvement! documented in this encounterMansfield Hospital06-27-2024 Telephone encounter Note * Telephone Encounter - Jessy Butcher RN - 02/19/2024 10:08 AM EDT 2nd call placed to pt. No answer. Message left requesting call back. Jessy Butcher RN [facility]06-[facility] Telephone encounter Note* Telephone Encounter - Jessy Butcher RN - 02/18/2024 1:52 PM EDT Call placed to pt. No answer. Unable to leave a message. Jessy Butcher RN [facility]06-[facility] Telephone encounter Note* Telephone Encounter - Jessy Butcher RN - 02/18/2024 1:52 PM EDT ----- Message from Roselyn Leonard MD sent at 02/18/2024 12:53 PM EDT ----- Scan showing improvement! [facility] History of Present illness Narrative* Jessy Guerra RT(R) - 02/18/2024 7:45 AM EDT Radiology Service Progress Note PATIENT NAME: Aisha [...] PATIENT PRESENTS WITH AN IMPLANTABLE OR ATTACHED [employer]: No RADIOLOGY DEPARTMENT: CT; Exam(s) Completed: Pancreas and Pelvis PERIPHERAL IV DATA: Site assessment: Clean,Dry and Intact, Site disposition Discontinued SIGNED BY: RT Norman(R) February 18, 2024 8:14 AM * Solange Harmon RN - 02/18/2024 7:45 AM EDT Radiology Service Progress Note DATE OF SERVICE: [...] 2024 TIME: 8:17 AM documented in this encounterMansfield Hospital06-18-2024 Telephone encounter Note * Telephone Encounter - Roselyn Leonard MD - 02/10/2024 3:30 PM EDT Thanks - done [facility] Miscellaneous Notes* Telephone Encounter - Roselyn Leonard MD - 02/10/2024 3:30 PM EDT Thanks - done * Telephone Encounter - Nia Muniz RN - 02/10/2024 12:45 PM EDT Pt scheduled 02/25/24. OV 01/28/24: RTC with me in 4 weeks Labs and Sandostatin same day Nancy: please place lab orders you would like completed for follow up Nia documented in this [facility] Telephone encounter Note * Telephone Encounter - Nia Muniz RN - 02/10/2024 12:45 PM EDT Pt scheduled 02/25/24. OV 01/28/24: RTC with me in 4 weeks Labs and Sandostatin same day Nancy: please place lab orders you would like completed for follow up Nia [facility] History of Present illness Narrative* Roselyn Leonard MD - 01/28/2024 9:45 AM EDT Images from the original note were not included. NAME: Wily Aisha CLINIC NO.: [id number] DATE OF SERVICE: January 28, 2024 (Raoul) Some elements in this clinic note that are critical to medical decision making have been carefully reviewed and included from a prior clinic note dated: December 03, 2023 (Raoul). Referring Provider: Dr. Cleveland De León Additional Clinicians involved in Aisha Julien's care: [...] Laparotomy, gastrojejunostomy (Bilroth II reconstruction), takedown of gastrocutaneousfistula, and placement of distal feeding tube 10/29/2023-11/07/2023 - Admitted at [place] - Observation after surgery 10/01/2023 - CT [...] which could be related to osteopenia or infiltrativemetastatic disease (and could be further differentiated with Dotatate PET-CT). 08/28/2023 - CT Brain: No CT evidence of acute intracranial process 08/28/2023 - CXR: No evidence of active disease. 08/28/2023-09/05/2023 - Admitted at [place] - Patient sent by surgery with failure [...] indeterminate hepatic hypodensities. 08/07/2023-08/17/2023 - Admitted at [place] - Nausea & Vomiting: Sent by GI for weight loss and unable to keep anything down since June. 07/25/2023 - EGD with biopsy: Duodenal mass - [facility] - Dr. Linder. 07/24/2023 - CT A/P: at [facility] A mass is noted in the region [...] metastases in 06/2023. He had an open GJbypass on 10/28. He would like to start systemic therapy (Sandostatin) here in [place]. Incidents of nausea after eating got more frequent over the past two years prior to diagnosis. He has a PICC line currently, PEG-J tube did not work well for him. He is not in pain now, a littlesore on site of stitches. Prior History from Dr. Cleveland De León's Progress Note on 11/17/2023: Assessment & Diagnosis: [...] PICC line since no TPN or IV hydrationwill be needed. Referral to medical oncology to consider systemic therapy (Sandostatin) Return to surgery clinic as needed REVIEW OF SYSTEMS Per HPI and otherwise negative by full review of organ systems. ECOG PERFORMANCE STATUS: 1 PHYSICAL EXAMINATION: Vitals: BP 154/80 Pulse 58 Temp (Src) 97.6 (Temporal) Resp 16 Ht 5' 9.488 (1.77m) Wt 171lb 4.8 oz (77.7kg) SpO2 100% BMI 24.94 [...] which included preparing to see the patient, racr-aa-rzif patient care, completing clinical documentation, obtaining and/or reviewing separately obtained history, performing a medically appropriate examination, counseling and educating the pat ient/family/caregiver, ordering medications, tests, or procedures, communicating with other HCPs (not separately reported), independently interpreting results (not separately reported), communicatingresults to the patient/family/caregiver, and care coordination (not separately reported). Roselyn Leonard MD, CPE Hematology and Oncology Services Provided at: [facility], [place], [place] Scribe Attestation: This note was scribed [...] me and under my direction. CC: Samer Genet [address] [facility] [address] Rene Cannon MD, MD [address] [id number] documented in this encounterMansfield Hospital06-05-2024 Instructions* Patient Instructions* Reina Baker - 01/28/2024 9:37 AM EDT Proceed Sandostatin LAR today and q [address] Pancreas/Pelvis in 3 weeks Consider PET scan based on results RTC with me in 4 weeks Labs and Sandostatin same day documented in this encounterMansfield Hospital05-29-2024 Telephone encounter Note * Telephone Encounter - Catalina Whtie MA - 01/21/2024 9:11 AM EDT Patient has an appt on 01/28/24. Would you like labs, if so place orders. Catalina White MA [facility] Miscellaneous Notes* Telephone Encounter - Catalina Barnett MA - 01/21/2024 9:11 AM EDT Patient has an appt on 01/28/24. Would you like labs, if so place orders. Catalina White MA documented in this encounterMansfield Hospital05-02-2024 Telephone encounter Note * Telephone Encounter - Nia Muniz RN - 12/25/2023 11:06 AM EDT Letter signed; pt aware and will come to the office to pickle cutter. Placed at help desk consultant. Nia Muniz RN [facility] Miscellaneous Notes* Telephone Encounter - Nia Muniz RN - 12/25/2023 11:06 AM EDT Letter signed; pt aware and will come to the office to pickle cutter. Placed at help desk consultant. Nia Muniz RN * Telephone Encounter - Nia Muniz RN - 12/24/2023 2:25 PM EDT Pt stopped by requesting return to work, without restrictions, as of December 29, 2023. Nancy: letter initiate; please review and sign if agreeable Nia Muniz RN documented in this encounterMansfield Hospital05-01-2024 Telephone encounter Note * Telephone Encounter - Nia Muniz RN - 12/24/2023 2:25 PM EDT Pt stopped by requesting return to work, without restrictions, as of December 29, 2023. Nancy: letter initiate; please review and sign if agreeable Nia Muniz RN [facility] Miscellaneous Notes* Telephone Encounter - Yoli Robb MA - 12/12/2023 4:10 PM EDT [facility] PAPERWORK SIGNED. FAXED TO [employer] @ [phone] and [facility] fax @ [phone]. PLACED IN SCANNING. Patient notified Yoli Robb MA * Telephone Encounter - Trudi Pickering MA - 12/12/2023 2:19 PM EDT Short term extension completed and placed in folder to be signed. Trudi Pickering MA documented in this encounterMansfield Hospital04-10-2024 Instructions* Patient Instructions* Reina Baker - 12/03/2023 4:02 PM EDT Start Sandostatin LAR today and q 4 weeks RTC with me in 8 weeks Labs and Sandostatin same day documented in this encounterMansfield Hospital04-10-2024 History of Present illness Narrative* Roselyn Leonard MD - 12/03/2023 3:30 PM EDT Images from the original note were not included. NAME: Aisha Julien CLINIC NO.: [id number] DATE OF SERVICE: December 03, 2023 (Raoul) Referring Provider: Dr. Cleveland De León Consultation requested by Dr. De León for an opinion regarding Mr. Aisha Julien, [...] Laparotomy, gastrojejunostomy (Bilroth II reconstruction), takedown of gastrocutaneousfistula, and placement of distal feeding tube 10/29/2023-11/07/2023 - Admitted at [place] - Observation after surgery 10/01/2023 - CT [...] which could be related to osteopenia or infiltrativemetastatic disease (and could be further differentiated with Dotatate PET-CT). 08/28/2023 - CT Brain: No CT evidence of acute intracranial process 08/28/2023 - CXR: No evidence of active disease. 08/28/2023-09/05/2023 - Admitted at [place] - Patient sent by surgery with failure [...] indeterminate hepatic hypodensities. 08/07/2023-08/17/2023 - Admitted at [place] - Nausea & Vomiting: Sent by GI for weight loss and unable to keep anything down since June. 07/25/2023 - EGD with biopsy: Duodenal mass - [facility] - Dr. Linder. 07/24/2023 - CT A/P: at [facility] A mass is noted in the region [...] metastases in 06/2023. He had an open GJbypass on 10/28. He would like to start systemic therapy (Sandostatin) here in [place]. Incidents of nausea after eating got more frequent over the past two years prior to diagnosis. He has a PICC line currently, PEG-J tube did not work well for him. He is not in pain now, a littlesore on site of stitches. Prior History from Dr. Cleveland De León's Progress Note on 11/17/2023: Assessment & Diagnosis: [...] PICC line since no TPN or IV hydrationwill be needed. Referral to medical oncology to consider systemic therapy (Sandostatin) Return to surgery clinic as needed REVIEW OF SYSTEMS Per HPI and otherwise negative by full review of organ systems. ECOG PERFORMANCE STATUS: 1 PHYSICAL EXAMINATION: Vitals: BP 159/72 Pulse 86 Temp (Src) 97.2 (Temporal) Resp 16 Ht 5' 9.488 (1.77m) Wt 162lb 14.7 oz (73.9kg) SpO2 99% BMI 23.72 [...] which included preparing to see the patient, iijr-hs-gtlc patient care, completing clinical documentation, obtaining and/or reviewing separately obtained history, performing a medically appropriate examination, counseling and educating the pat ient/family/caregiver, ordering medications, tests, or procedures, communicating with other HCPs (not separately reported), independently interpreting results (not separately reported), communicatingresults to the patient/family/caregiver, and care coordination (not separately reported). Roselyn Leonard MD, CPE Hematology and Oncology Services Provided at: [place], [place] Scribe Attestation: This note was scribed by Reina Baker on December 03, 2023 under the direction and supervision ofDr. Roselyn Leonard. I attest that all of the information documented is correct to the best of my knowledge. Provider Attestation: I, Roselyn Leonard MD, attest that all information documented by the above scribe is correct, and was supervised by me and under my direction. CC: Cleveland De León [address] [facility] [address] Rene Cannon MD, MD [address] [id number] documented in this encounterMansfield Hospital03-26-2024 Miscellaneous Notes* Telephone Encounter - Xin Robert - 11/18/2023 2:33 PM EDT Spoke to patient & patient is scheduled for on 12/03/2023 for labs at 3:15 pm, NANCY at 3:30 pm, and Sandostatin injection at 4:15 pm. Xin Robert * Telephone Encounter - Jessy Butcher RN - 11/18/2023 11:20 AM EDT Clerical: Pt will need to see Dr Leonard for labs, RV (New pt), and Sandostatin as soon as he is back in office. Jessy Butcher RN * Telephone Encounter - Jessy Butcher RN - 11/18/2023 11:20 AM EDT Images from the original note were not included. Roselyn Leonard MD Naffouje, Samer A, MD; Jessie Zamora, RN; Jessy Butcher, LUCILLE; P [facility] Clerical Pool; [facility] Pool Han Maldonado and thanks! - Happy to arrange - I might have to see him week of November 30 because I'm out next week. But we will get him in and continue Sandostatin if that's ok. Previous Messages ----- Message ----- From: Cleveland De León MD Sent: 11/17/2023 10:49 AM EDT To: Roselyn Leonard MD; Jessie Zamora, RN Nancy, I am taking care of Mr. [...] He prefers to receive the Sandostatin in [place] since he lives there. Thank you very much. Lexie documented in this encounterMansfield Hospital03-25-2024 Miscellaneous Notes* Telephone Encounter - Jessie Zamora RN - 11/17/2023 3:34 PM EDT Employer Forms for Patient/Caregiver Time Off of Work FMLA Completed, signed by provider, and returned to below contact. Completed copy scanned in [employer] Date of Surgery: 10/29/23 Estimated RTW date: 12/15/23 Employer: [employer] & [phone] Date sent to employer: 11/17/23 Received fax confirmation: YES * Telephone Encounter - Jessie Zamora RN - 11/17/2023 10:50 AM EDT Received FMLA/STD paperwork on 11/17/23 Pending physician signature and completion. Surgeon: Dr. De León Date of Surgery (if known): Multiple documented in this encounterMansfield Hospital03-25-2024 History of Present illness Narrative* Celveland De León MD - 11/17/2023 10:24 AM EDT Images from the original note were not [...] PICC line since no TPN or IV hydrationwill be needed. Referral to medical oncology to consider systemic therapy (Sandostatin) Return to surgery clinic as needed Cleveland De León MD [facility] documented in this encounterMansfield Hospital03-25-2024 Nurse Note* Kelsea Valenzuela MA - 11/17/2023 10:20 AM EDT What is the reason for your visit [...] Temperature: No Drains: No documented in this encounterMansfield Hospital03-19-2024 Miscellaneous Notes* Telephone Encounter - Jessie Zamora RN - 11/11/2023 4:04 PM EDT Employer Forms for Patient/Caregiver Time Off of Work FMLA/STD Completed, signed by provider, and returned to below contact. Completed copy scanned in [facility] Date of Surgery: Estimated RTW date: Employer: Caroline [employer] with [employer] Date sent to employer: 11/11/23 Received fax confirmation: YES * Telephone Encounter - Kelsea Valenzuela MA - 10/29/2023 7:59 AM EST Received FMLA/STD paperwork on 10/29/23 Pending physician signature and completion. Surgeon: Dr. De León Date of Surgery (if known): 10/29/23 documented in this encounterMansfield Hospital02-19-2024 Miscellaneous Notes* Telephone Encounter - Eber Dupont APRN.CIGARETTE CARTON SEALER - 10/13/2023 11:[address] De León, Aisha Julien, 1955, [id number], is scheduled for Procedure(s) (LRB): RESECTION SMALL INTESTINE AND ANASTOMOSIS LAPAROSCOPIC, ADDITIONAL PROCEDURE (N/A) on 10/29/2023 at [facility]. Update on Mr. Julien following discharge from [facility] for a blood infection (patient states E. Coli). States he has been prescribed Ertapenem, last dose scheduled for 10/26/23. Plan per [facility] 10/09/23 (Care Everywhere) Patient initially covered with vancomycin and ceftriaxone but now on meropenem and vancomycin. Blood cultures with Enterobacter MAGI. PICC line potentially could be source but so could be the PEG tubesite. Ultimately patient has a duodenal mass and [...] sets mention left antecubital for left v hand.Therefore repeat blood cultures will be taken fromthe PICC line. Will discontinue vancomycin given the gram-negative's isolated so far. Maintain meropenem. Thank you, Eber Dupont APRN.CIGARET[employer] CART[employer] SEALER documented in this encounterMansfield Hospital02-19-2024 Instructions* Patient Instructions* Eber Dupont APRN.CNP - 10/13/2023 11:16 AM EST PATIENT PREOPERATIVE INSTRUCTIONS Cleveland De León MD has scheduled you for your procedure at this surgery center: [facility]: [phone] --[id number] [address]. Please check in on the1st floor at registration desk 6. Please read [...] Procedures: - YOU MUST HAVE A RESPONSIBLE MANAGER PE TAKE YOU HOME. A MANHOLE BUILDER OR ROCK CRUSHER CANNOT BE MADE A RESPONSIBLE MANAGER PE. - We recommend that a responsible person stays with you overnight to take care of you. - You cannot stay in a hotel alone after outpatient surgery. You will not be permitted to have yoursurgery, if you do not have someone to [...] Advance Directive, please fax a copy to [phone] or email to for it to be added to your chart. If you do not have an Advance Directive, you can find the appropriate form and more information at [email or web address]. We recommend that youcomplete the Advance Directive form found on the website and bring it with you the day of your surgery. It can be witnessed and scanned into your chart that day. documented in this encounterMansfield Hospital02-19-2024 History and physical note * Eber Dupont APRN.CIGARETTE CARTON SEALER - 10/13/2023 11:00 AM EST Images from the original note were not included. HISTORY AND PHYSICAL EXAMINATION SERVICE DATE: 10/13/2023 SERVICE TIME: 11:14 AM PRIMARY CARE PHYSICIAN: Rene Cannon MD, MD REASON FOR VISIT: Aisha Julien is a 68 year old male who is scheduled for Procedure(s) (LRB): RESECTION SMALL INTESTINE AND ANASTOMOSIS LAPAROSCOPIC, ADDITIONAL PROCEDURE (N/A) at the request of Dr. Cleveland De León for consultation. My final recommendation will be [...] fevers. 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 [...] 364 QTC Calculation (Bazett) 436 Calculated P Breck[place] 67 Calculated R Breck[place]ridge -11 Calculated T [place] 76 Impression Sinus rhythm LAE, consider biatrial enlargement Borderline intraventricular conduction delay Low voltage, extremity leads Abnormal R-wave progression, late transition Consider inferior infarct Borderline ST elevation, anterior leads Abnormal ECG 1729 Confirmed by MD ZULAY, BOLIVAR ([id number]), metropolitan editor ANURAG WARD ([id number]) on 08/29/2023 12:45:41 PM Recent Results (from the past 72232 hour(s)) ECHO Collection Time: 08/17/23 1:08 PM [...] Type and Screen, 30 day Order Comments: [facility] Standing Status: Future Standing Expiration Date: 01/12/2024 [...] 2023 TIME: 11:14 AM documented in this encounterMansfield Hospital02-15-2024 Progress note Author Eber Suarez [facility] October 09, 2023 11:11amNote Date/TimeFebruary 2023 11:12[place] [id number] Infect. Disease Progress Note Signed Patient: Aisha Julien MR#: [id number] : 1955 Acct:[id number] Age/Sex: 68 / M Adm Date: 4 Loc: Room: [address] [place] [address] Type: ADM IN Attending Dr: Cali Patterson [...] 5 Mg Tablet) 5 mg PO QAM [facility] Stop: 10/07/24 08:59 Last Admin: 10/09/23 08:27 [...] 250 mls @ 21 mls/hr IV DAILY@1800 [facility] Stop: 10/06/24 17:59 Last Admin: 10/08/23 18:35 Dose: 21 mls/hr Meropenem (Merrem) 1 gm in 100 mls @ 33 mls/hr IV Q8H [facility]I Last Admin: 10/09/23 06:37 Dose: 200 mls/hr Ondansetron HCl (Ondansetron 4 Mg/2 Ml Vial) 4 mg IV-PUSH Q8H PRN PRN Reason: Nausea And Vomiting Stop: 10/05/24 19:15 Pantoprazole Sodium (Pantoprazole 40 Mg Vial) 40 mg IV-PUSH DAILY [facility]I Stop: 10/07/24 08:59 Last Admin: 10/09/23 08:28 [...] was just clean. Leukocytosis remains resolved. Afebrile. Noabdominal discomfort. Culture results from the G-tube site as above. Blood culture follow-up still pending. Continues on ertapenem. Blood culture with Enterobacter whereas wound culture around his PEG tube with E. coli and Klebsiella. Invanz will cover all of the above. As long as follow-up blood cultures clear will try to maintain the PICC line that he has in his right upper extremity. Will planfor Invanz in 2 weeks assuming follow-up bloodcultures do remain negative given patient's rapid clinical improvement. Surveillance cultures may need to be considered from the PICC line in the right upper extremity. He can follow-up with me in the office as an outpatient Documented By: Eber Suarez MD 10/09/23 1105 Signed By: <Electronically signed by MD Eber Suarez> 10/09/23 [address] [facility] Work Phone: 1(798) 529-257102-14-2024 Progress note Author Cali Patterson [facility] October 08, 2023 8:47pmNote Date/TimeFebruary 2023 12:23pm[place] [address] Hospitalist Progress Note Signed Patient: Aisha Julien MR#: [id number] : 1955 Acct:[id number] Age/Sex: 68 / M Adm Date: 4 Loc: Room: [address] [place] [address] Type: ADM IN Attending Dr: Cali Patterson [...] edema BLE, calves nontender SKIN- abdominal with M-cjz-hvsctcvs with yellow drainage, erythema around insertion site [...] 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 - Cali Patterson, Documented By: Kalina Moore, CONCERT PROMOTER 09/25 12/16 1223 Signed By: <Electronically signed by DEVAN Moore> 10/08/23 1608 <Electronically signed by Cali Patterson DO> 10/08/232046 [facility] Work Phone: 1(725) 816-348902-14-2024 Consult note Author Eber Suarez [facility] October 08, 2023 10:53amNote Date/TimeFebruary 2023 10:42amHall[place] [address] Infect. Disease Consult Note Signed Patient: Aisha Julien MR#: [id number] : 1955 Acct:[id number] Age/Sex: 68 / M Adm Date: 4 Loc: Room: [address] [place] [address] Type: ADM IN Attending Dr: Cali Patterson [...] also has a PICC line due to TPNneed. Concern over purulent drainage around the G-tube site is the reason I am consulted. This was cultured and has a gram-negative hari so far growing to date. Empiric vancomycin and ceftriaxone wereordered. Today patient states his J-tube site does [...] coming out. 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 The goal is to keep this PEG tube in through the surgery. CC: Cali Patterson, [facility] Medical History (Updated 10/08/23 @ 10:51 by [...] Tablet) 5 mg PO QAM [facility] Stop: 10/07/24 08:59 Last Admin: 10/08/23 09:34 [...] Acids 2,129.5867 mls @ 88.733 mls/hrIV DAILY@1800 [facility]; Protocol Stop: 10/06/24 17:59 Last Infusion: 10/07/23 20:30 Dose: 88.7 mls/hr Fat Emulsion Intravenous 250 (ml/ IV Miscellaneous Supplies) 250 mls @ 21 mls/hr IV DAILY@1800 [facility] Stop: 10/06/24 17:59 Last Admin: 10/07/23 18:12 Dose: 21 mls/hr Meropenem (Merrem) 1 gm in 100 mls @ 33 mls/hr IV Q8H [facility] Last Admin: 10/08/23 07:00 Dose: 200 mls/hr Ondansetron HCl (Ondansetron 4 Mg/2 Ml Vial) 4 mg IV-PUSH Q8H PRN PRN Reason: Nausea And Vomiting Stop: 10/05/24 19:15 Pantoprazole Sodium (Pantoprazole 40 Mg Vial) 40 mg IV-PUSH DAILY [facility] Stop: 10/07/24 08:59 Last Admin: 10/08/23 09:35 [...] (PEG exit site with drainage yellow/brown drainage; noodor. Non tender. ) Palpation: soft Other: No [...] source but so could be the PEG tubesite. Ultimately patient has a duodenal mass and [...] sets mention left antecubital for left v hand.Therefore repeat blood cultures will be taken fromthe PICC line. Will discontinue vancomycin given the gram-negative's isolated so far. Maintain meropenem. Documented By: Eber Suarez MD 10/08/23 1037 Signed By: <Electronically signed by MD Eber Suarez> 10/08/23 1053 [facility] Work Phone: 1(848) 463-172102-13-2024 Progress note Author Cali Patterson [facility] October 07, 2023 9:35pmNote Date/TimeFebruary 2023 11:41[place] [address] Hospitalist Progress Note Signed Patient: Aisha Julien MR#: [id number] : 1955 Acct:[id number] Age/Sex: 68 / M Adm Date: 4 Loc: Room: [address] [place] [address] Type: ADM IN Attending Dr: Cali Patterson DO Copies to: ~ Date of Service: 10/07/2023 Subjective Subjective Narrative: Patient seen and examined. He is resting comfortably. Indicates pain/ tenderness at the G-tube siteimproved from yesterday. On arrival he had copious [...] and planned surgery of duodenal mass at [facility] October 28 Exam Physical Exam Vital Signs: [...] edema BLE, calves nontender SKIN- abdominal with W-nnt-xqcecgze with yellow drainage, erythema around insertion site [...] Obstructive Duodenal mass -pending surgery 10/29/23 at [facility] -has been on TPN/ lipids- dietitian consult [...] of the encounter, reviewed the history,performed the ayaal elements of the exam, formulated the plan of care and confirmed the Nurse Practitioner's assessment and plan. - Cali Patterson DO Documented By: Kalina Moore APRN 09/25 11/15 1141 Signed By: <Electronically signed by DEAVN Moore> 10/07/23 1407 <Electronically signed by Cali Patterson DO> 10/07/23 1301 [facility] Work Phone: 1(890) 211-124902-13-2024 History and physical note Author Cali Patterson [facility] October 06, 2023 10:09pmNote Date/TimeFebruary 2023 10:[address] [address] Hospitalist H&P Signed Patient: Aisha Julien MR#: [id number] : 1955 Acct:[id number] Age/Sex: 68 / M Adm Date: 4 Loc: Room: [address] [place] [address] Type: ADM IN Attending Dr: Cali Patterson [...] does have a history of a mass approximately3 and half centimeters round in the third portion of the duodenum,[facility] [...] food. He denies any tenderness around the G-tube site though there is some pus that is actively draining which patient states is not normal andjust started. Review of Systems Review of Systems All other systems reviewed & are negative unless noted below or in HPI [facility] Medical History (Updated 10/06/23 @ 22:08 by [...] mg PO DAILY #30 tabs 07/26/23 [Rx Czkzudyll16/12/24] Exam Physical Exam Vital Signs: Temp Pulse [...] sounds with no organomegaly, G-tube site with newdressing, there is pus seeping through the new [...] 17:17 Lymph % (Auto) N/A 10/06/23 17:17 [place] % (Auto) N/A 10/06/23 17:17 Eos % (Auto) N/A 10/06/23 17:17 Baso % (Auto) N/A 10/06/23 17:17 Nucleat RBC Rel Count N/A 10/06/23 17:17 Neut # (Auto) N/A 10/06/23 17:17 Lymph # (Auto) N/A 10/06/23 17:17 [place] # (Auto) N/A 10/06/23 17:17 Eos # [...] pH 5.0 (5.0-9.0) 10/06/23 18:34 Ur Specific [place] 1.015 (1.001-1.030) 10/06/23 18:34 Urine Protein Negative [...] Plan: ? Currently being worked up at [facility], stable (6) On total parenteral nutrition (TPN): [...] setting as: INPATIENT because of an expectation ofan over 2 midnight stay. Estimated length of stay (# of days): 3 Documented By: Cali Patterson DO 10/06/232158 Signed By: <Electronically signed by Cali Patterson DO> 10/06/232208 [facility] Work Phone: 1(300) 864-845302-12-2024 Telephone encounter Note* Telephone Encounter - Jessie Zamora RN - 10/06/2023 5:03 PM EST Called patient and informed him of surgery date with Dr. De León and Dr. Bryan on 10/29/23. Patient informed me that he was currently in the [facility] ER due to low bp. Informed patient to keep me updated on how he was feeling. [facility]02-12-2024 Miscellaneous Notes* Telephone Encounter - Jessie Zamora RN - 10/06/2023 5:03 PM EST Called patient and informed him of surgery date with Dr. De León and Dr. Bryan on 10/29/23. Patient informed me that he was currently in the [facility] ER due to low bp. Informed patient to keep me updated on how he was feeling. documented [facility] Miscellaneous Notes* Telephone Encounter - Jessie Zamora RN - 10/06/2023 12:03 PM EST Updated short term disability paperwork was updated and faxed on 10/06/23. Faxed to [facility] and to [facility]. documented in [facility] History of Present illness Narrative* Cleveland De León MD - 10/03/2023 4:29 PM EST Established [...] volume. Abdomen is soft and non distended Clerk General Office present: Yes () ASSESSMENT 68 year old [...] Medical Decision Making Level: 5 - High Samer MD Genet [facility] October 02, 2023 documented in this encounterM[facility]02-[facility] History of Present illness Narrative* Solange [...] 01, 2023 TIME: 8:30 AM * Jessy Guerra RT(R) - 10/01/2023 8:15 AM EST Radiology [...] 01, 2023 9:05 AM documented in this encounterM[facility]01-[facility]24 History of Past illness Narrative* ProblemNoted DateDiagnosed DateResolved JnrxGxeduzbumjh90/04/2024 4documented as of this encounter (statuses as of 10/03/2023) [facility] History of Past illness Narrative* ProblemNoted Date Diagnosed DateResolved EsbmAqwzbpjjlkl144documented as of this encounter (statuses as of 10/06/2023) [facility] History of Past illness Narrative* ProblemNoted Date Diagnosed DateResolved DewjOudnojtbgek554documented as of this encounter (statuses as of 10/07/2023) [facility] History of Past illness Narrative* ProblemNoted Date Diagnosed DateResolved VwkwYnfbmbhpuim32Hyperlipidemia ///Mild mitral poiweuqjmxyaw10/06/202302/10/13/2023Mild tricuspid ekqlollzirdep47/06/202302///4documented as of this encounter (statuses as of 10/13/2023) [facility] History of Past illness Narrative* ProblemNoted Date Diagnosed DateResolved BlstUchgqcaqpal40/04/202401/07/2024Hyperlipidemia ///Mild mitral hrgbpcggjdmck7310/13/2023Mild tricuspid libbreywrbnnv19/06/202302///4documented as of this encounter (statuses as of 10/13/2023) [facility] History of Past illness Narrative* ProblemNoted Date Diagnosed DateResolved WunwSumkdgubxjp62Hyperlipidemia ///Mild mitral qxtyibtpcmivw3010/13/2023Mild tricuspid hrnaphsmcdens53/06/202302//4documented as of this encounter (statuses as of 11/11/2023) [facility] History of Past illness Narrative* ProblemNoted Date Diagnosed DateResolved GrzwRshewfgebin49Hyperlipidemia ///Mild mitral jwyxlpoxkhnnz7010/13/2023Mild tricuspid pesfbgditszxo81/06/202302///4documented as of this encounter (statuses as of 11/17/2023) [facility] History of Past illness Narrative* ProblemNoted Date Diagnosed DateResolved KnpoHsqcgfgvqux40Hyperlipidemia ///Mild mitral mtvhdohrfppoj3710/13/2023Mild tricuspid wjmlyrivmmjpg10/06/202302///4documented as of this encounter (statuses as of 11/17/2023) [facility] History of Past illness Narrative* ProblemNoted Date Diagnosed DateResolved IlugNextregzpjy13/04/202401/07/2024Hyperlipidemia ///Mild mitral kelccgbmavwxx31/06/202302/10/13/2023Mild tricuspid kegyfsydqooca09/06/202302/19//4documented as of this encounter (statuses as of 11/18/2023) [facility] History of Past illness Narrative* ProblemNoted Date Diagnosed DateResolved AkefHzmwksrxvtf34/04/202401/07/2024Hyperlipidemia //Mild mitral ydmfvdlevyabq82/06/202302/10/13/2023Mild tricuspid lflmgzjvcxodr18/06/202302/19//4documented as of this encounter (statuses as of 12/04/2023) [facility] History of Past illness Narrative* ProblemNoted Date Diagnosed DateResolved TnhnXqtpbwxfzqa20Hyperlipidemia //Mild mitral yjrfimqcfwqxl52/06/202302/10/13/2023Mild tricuspid zveyvklwnzoxk17/06/202302///4documented as of this encounter (statuses as of 12/09/2023) [facility] History of Past illness Narrative* ProblemNoted Date Diagnosed DateResolved SxgoOrvtcvycrvw01/04/202401/07/2024Hyperlipidemia ///Mild mitral pndqyqbpqrcyn6510/13/2023Mild tricuspid xgpsrivreuaqu31/06/202302///4documented as of this encounter (statuses as of 12/12/2023) [facility]-21-2023 Miscellaneous Notes* Telephone Encounter - Jessie Zamora, RN - 08/14/2023 9:12 AM EST [facility] returned call [...] 08/13/2023 10:24 AM EST Call made to [facility] - patient employer to get [facility] paperwork for him. Left a with Kindra. Gave her cell number to call back and/or fax number to fax paperwork. documented in this encounterMansfield Hospital12-14-2023 History and physical note * Cleveland De León MD - 08/07/2023 2:25 PM EST New [...] and symmetric. Sensation grossly intact. Abdomen: Negative Clerk General Office present: Yes () ASSESSMENT 68-year-old male with [...] Decision Making Level: 5 - High Cleveland De León MD [facility] August 07, 2023 documented in this encounterM[facility]12-13-2023 Miscellaneous Notes* Telephone Encounter - Sylvia Bueno - 08/06/2023 9:07 AM EST Received records from [facility]. Scanned into [employer]. Please review, thank you! documented in this encounterMans[facility] Hospital12-12-2023 Miscellaneous Notes* Telephone Encounter - Jessie Zamora RN - 08/05/2023 10:42 AM EST Called patient and spoke with him about coming for a visit with Dr. De León. Patient understands he was referred by Dr. Linder. Asked patient to bring any past medical history with him. Patient understanding and thankful for call and appointment. *Requested images to be pushed from [employer] 08/05. Also faxed release of information to patients PCP - [facility]. Cannon in [facility]. documented in this encounterM[facility]12-[facility]-2023 Miscellaneous Notes* Telephone Encounter - Vicki Burris - 07/29/2023 3:36 PM EST New patient referral from Dr. Linder's office ([phone]) to Dr. De León for Duodenal Mass. Contacted the office to resend records. Please advise on scheduling documented in this encounterM[facility] Hospital12-02-2023 Progress note Author Jose A [facility] July 26, 2023 11:49amNote Date/TimeDece2022 11:49[place] [id number] Nephrology Progress Note Signed Patient: Aisha Julien MR#: [id number] : 1955 Acct:[id number] Age/Sex: 68 / M Adm Date: 3 Loc: Room: [address] [place] [address] Type: ADM IN Attending Dr: Gela Eller [...] severe ENEDINA with initial creatinine 4.5, potassiumalso waslow at 2.9. CAT scan of abdomen and pelvis without contrast showed duodenal mass with obstruction high suspicious for malignancy. Patient was admitted and given 2 L of normal saline and kept on normal saline with potassiumchloride at 150 cc/h. Home blood pressure medications including diltiazem andlosartan metoprolol were held due to hypotension at [...] 5 Mg Tablet) 5 mg PO QAM [facility] Stop: 07/24/24 08:59 Last Admin: 07/26/23 08:40 Dose: 5 mg Hydralazine HCl (Hydralazine 20 Mg/Ml Vial) 10 mg IV-PUSH Q4H PRN PRN Reason: if SBP > 185 Stop: 07/23/24 16:29 Hydromorphone HCl (Hydromorphone 1 Mg/Ml Syringe) 0.25 mg IV-PUSH Q4H PRN PRN Reason: pain Lactated Ringer's (Lactated Ringers) 1,000 mls @ 75 mls/hr IV .[id number] NOMI Stop: 07/24/24 13:14 Last Admin: 07/26/23 [...] when patient follow with his PCP if kidneyfunction is back to his baseline .check renal function panel in 3 days after discharge Documented By: Jose A Calzada MD 07/26/231145 Signed By: <Electronically signed by Jose A Calzada MD> 07/26/23 114 [facility] Work Phone: 1(980) 438-314612-01-2023 Progress note Author Gela Eller [facility] July 25, 2023 12:59pmNote Date/TimeDece2022 12:59pmHall[place] [address] Hospitalist Progress Note Signed Patient: Aisha Julien MR#: [id number] : 1955 Acct:[id number] Age/Sex: 68 / M Adm Date: 3 Loc: Room: [address] [place] [address] Type: ADM IN Attending Dr: Gela Eller [...] <Electronically signed by Gela Eller MD> 07/25/23 8944 [facility] Work Phone: 1(692) 436-330812-01-2023 History and physical note Author Gela Eller [facility] July 25, 2023 12:57pmNote Date/TimeNovember 2022 4:18pmHall[place] [address] Hospitalist H&P Signed Patient: Aisha Julien MR#: [id number] : 1955 Acct:[id number] Age/Sex: 68 / M Adm Date: 3 Loc: Room: [address] [place] [address] Type: ADM IN Attending Dr: Gela Eller [...] area after eating. No diarrhea. No shortness ofbreath no chest pain. No palpitations. He has [...] any coronary artery disease. Ventriculogram showed ejection onyxrrrh92% Admission EKG showed normal sinus rhythm without [...] to measure but measures approximately 3.4 x 3.4cm in greatest axial dimensions. There appears to [...] mass, portal vein/SMV thrombosis cannot be excluded. [facility] Medical History (Updated 07/25/23 @ 12:42 by [...] % (Auto) 12.6 % (.) 07/24/23 12:28 [place] % (Auto) 10.3 % (.) 07/24/23 12:28 Eos % (Auto) 1.0 % (.) 07/24/23 12:28 Baso % (Auto) 0.5 % (.) 07/24/23 12:28 Nucleat RBC Rel Count 0.2 /100 WBC (0-0.5) 07/24/23 12:28 Neut # (Auto) 5.5 x10E3/uL (1.8-7.7) 07/24/23 12:28 Lymph # (Auto) 0.9 x10E3/uL (1.00-4.8) L 07/24/23 12:28 [place] # (Auto) 0.8 x10E3/uL (0.0-0.8) 07/24/23 12:28 [...] pH 5.5 (5.0-9.0) 07/24/23 13:54 Ur Specific [place] 1.015 (1.001-1.030) 07/24/23 13:54 Urine Protein 30 [...] setting as: INPATIENT because of an expectation ofan over 2 midnight stay. Estimated length of stay (# of days): 3 Documented By: Gela Eller MD 07/24/23 1616 Signed By: <Electronically signed by eGla Eller MD> 07/25/[address] [place] [address] Work Phone: 1(735) 465-826712-01-2023 Consult note Author Jose A Calzada [facility] July 25, 2023 12:45pmNote Date/TimeDece2022 12:45pmHallock[place] [address] Nephrology Consult Note Signed Patient: Aisha Julien MR#: [id number] : 1955 Acct:[id number] Age/Sex: 68 / M Adm Date: 3 Loc: Room: [address] [place] [address] Type: ADM IN Attending Dr: Gela Eller [...] severe ENEDINA with initial creatinine 4.5, potassiumalso waslow at 2.9. CAT scan of abdomen and pelvis without contrast showed duodenal mass with obstruction high suspicious for malignancy. Patient was admitted and given 2 L of normal saline and kept on normal saline with potassiumchloride at 150 cc/h. Home blood pressure medications including diltiazem andlosartan metoprolol were held due to hypotension at admission. Patient was kepton BPH medication Flomax and fluid finasteride Patient stated he is feeling better. Denied any dizziness. He is n.p.o. and scheduled for EGD this morning. Denied NSAID use. No recent IV contrast exposure. Denies urinary obstructive symptoms. Review of Systems Review of Systems Review of systems: 12 system review is negative this morning [facility] Medical History (Updated 07/25/23 @ 12:42 by [...] (Finasteride 5 Mg Tablet) [address] [facility] Stop: 07/24/24 08:59 Hydralazine HCl (Hydralazine 20 Mg/Ml Vial) 10 mg IV-PUSH Q4H PRN PRN Reason: if SBP > 185 Stop: 07/23/24 16:29 Hydromorphone HCl (Hydromorphone 1 Mg/Ml Syringe) 0.25 mg IV-PUSH Q4H PRN PRN Reason: pain Potassium Chloride/Sodium Chloride (0.9% Nacl-40 Meq Kcl) 1,000 mls @ 150 mls/hr IV .Q6H40M [facility] Stop: 07/23/24 13:44 Last Admin: 07/25/23 11:24 [...] Appearance Clear Urine pH 5.5 Ur Specific [place] 1.015 Urine Protein 30 H Urine Glucose (UA) Normal Urine Ketones Trace H Urine Occult Blood Negative Urine Nitrite Negative Ur Leukocyte Esterase Negative Urine RBC 5-9 H Urine WBC 0-1 Urine Bacteria None seen 07/25/23 05:46 BUN 44 H Creatinine 2.86 H D Albumin 3.4 L Urine Color Urine Appearance Urine pH Ur Specific [place] Urine Protein Urine Glucose (UA) Urine Ketones [...] to be adjacent bulky lymphadenopathy involving the mes entery extending inferiorly some of which appears partially [...] Santa Jr., D.O.07/24/2023 2:43 PM Dictation Location: [place] [address] Any impression(s) listed above is documentation that [...] in each liter of IV fluid. Continue tomonitor potassium levels * Keep mean arterial pressure [...] by Jose A Calzada MD> 07/25/23 1245 [facility] Work Phone: [phone]) 576-579812-01-2023 [facility]11-30-2023 Consult note Author Nohemy Linder [facility] July 24, 2023 4:38pmNote Date/TimeNov2022 4:35pm[place] [address] Gastroenterology Consult Note Signed Patient: Aisha Julien MR#: [id number] : 1955 Acct:[id number] Age/Sex: 68 / M Adm Date: 3 Loc: Room: [address] [place] [address] Type: ADM IN Attending Dr: Gela Eller [...] negative unless noted below or in HPI [facility] Medical History (Updated 07/24/23 @ 16:37 by [...] mg PO QAM 01/15/23 [History Confirmed 07/24/23] Exam Physical Exam [...] % (Auto) 75.6 Lymph % (Auto) 12.6 [place] % (Auto) 10.3 Eos % (Auto) 1.0 Baso % (Auto) 0.5 Nucleat RBC Rel Count 0.2 Neut # (Auto) 5.5 Lymph # (Auto) 0.9 L [place] # (Auto) 0.8 Eos # (Auto) 0.1 [...] Color Urine Appearance Urine pH Ur Specific [place] Urine Protein Urine Glucose (UA) Urine Ketones Urine Occult Blood Urine Nitrite Urine Bilirubin Urine Urobilinogen Ur Leukocyte Esterase Urine RBC Urine WBC Ur Squamous Epith Cells Urine Bacteria Hyaline Casts 07/24/23 07/24/23 07/24/23 12:28 12:28 13:54 Corrected WBC Uncorrected WBC Count RBC Hgb Hct MCV MCH MCHC RDW Plt Count MPV Neut % (Auto) Lymph % (Auto) [place] % (Auto) Eos % (Auto) Baso % (Auto) Nucleat RBC Rel Count Neut # (Auto) Lymph # (Auto) [place] # (Auto) Eos # (Auto) Baso # [...] Appearance Clear Urine pH 5.5 Ur Specific [place] 1.015 Urine Protein 30 H Urine Glucose [...] <Electronically signed by Nohemy Linder MD> 07/24/231637 [facility] Work Phone: 1([phone]) 840-108407-01-2023 Evaluation note* Encounter Date Diagnosis Assessment Notes Treatment Notes Treatment Clinical Notes Feb, Visit for suture removal (ICD-10 - Z48.02) sutures removed successfully--see procedural note. wound healed up well. no questions or concerns. follow up with PCP prn. Feb,Laceration of nose, initial encounter (ICD-10 - S01.21XA)lac repair done in [facility] Other 05-26-2023 Discharge summary Author Joselito Madsen [facility] January 17, 2023 10:24amNote Date/TimeMay 2022 10:22[place] [id number] Discharge Summary Signed Patient: Aisha Julien MR#: [id number] : 1955 Acct:[id number] Age/Sex: 67 / M Adm Date: 3 Loc: Room: Attending Dr: Joselito Madsen DO Copies to: MD Joselito Velásquez, ~ Providers Date of Discharge: 01/17/23 Discharging Provider: [...] Low-Cholesterol Additional Instructions: DISCHARGE INSTRUCTIONS FOR CARDIAC [employer]ASS[employer] INSTRUMENT REPAIRER PHONE NUMBER OF YOUR PHYSICIAN: [phone] PROCEDURE: Heart Cath The following instructions have [...] You may change the dressing only if soiledor wet. You may remove the dressing the [...] cold, numb, blue or white, call the client hr manager immediately. 4. ACTIVITY: You are advised to [...] bottle, follow the instructions on the bottle. [facility] is not responsible for incorrect [...] signed by Joselito Madsen DO> 01/17/23 1024 [facility] Work Phone: [phone]) 638-737905-26-2023 Procedure noteAdena [facility]03-30-2022 Evaluation note* Encounter Date Diagnosis Assessment Notes Treatment Notes Treatment Clinical Notes Oct, Abdominal pain (ICD-10 - R10.9) OBTAIN RECORDS FROM [facility] OBTAIN COLONOSCOPY AND CT SCAN[facility] Oct,Gastritis without bleeding, unspecified chronicity, unspecified gastritis type (ICD-10 - K29.70) Oct,GERD (gastroesophageal reflux disease) (ICD-10 - K21.9) STOP FAMOTIDINE [facility] Other 03-16-2022 History of Present illness Narrative* Caity Hamilton RCP - 11/07/2021 12:30 PM EDT The patient was educated on the use of an event monitor. The patient's comprehension was high. The patient was able to verbalize recall. The patient was instructed on how and when to return the monitor. documented in this encounterSolidarium Phone: 1(383) 180-951803-16-2022 Note [facility] Carotid Procedure Patient Name WILY LEONARD Date of Study 11/07/2021 L Date of 1955 Gender Male Age 66 year(s) Race Room Number Corporate ID [id number] # Patient Acct [id number] # MR # [id number] Custodial Operations Manager Jocelyn Mcghee, RT Interpreting Estephania Pichardo Physician [...] Signature Electronically signed by DAHLIA Magaña (R M))([facility])(Custodial Operations Manager) on 11/07/2021 11:33 AM Findings: Right [...] !Mid ICA !87.54 !27.97 (more content not included)...[facility] CPACSEvaluation note* Diagnosis Chest pain, unspecified type Syncope, unspecified syncope type documented in this encounter [facility] Phone: evaluation note* Diagnosis Bruit Other symptoms involving cardiovascular system documented in this encounter [facility] Work Phone: evaluation noteNo InformationNort Chu Shu Other Evaluation noteNo assessment information available [facility] Work Phone: Evaluation note* Diagnosis Onset Date Resolution Status Acute renal failure acuteEpigastric painacuteHypokalemiaacuteHypotensionacuteSmall bowel massacute Unintentional weight lossacute [facility] Work Phone: Evaluation note* Diagnosis Onset Date Resolution Status Acute renal failure acuteDuodenal massacuteEpigastric painacuteHypokalemiaacuteHypotensionacuteSmall bowel massacuteUnintentional weight lossacute [facility] Work Phone: Evaluation note* Diagnosis Gastric outlet obstruction- Primary Acquired hypertrophic pyloric stenosis [facility] Diagnosis Gastric outlet obstruction- Primary 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) Encounter for attention to gastrostomy (HCC) Attention to gastrostomy Severe protein-calorie malnutrition (HCC) Other severe protein-calorie malnutrition [facility]* Diagnosis Onset Date Resolution Status Hypokalemia acuteHypotensionacuteLeukocytosisacuteOn total parenteral nutrition (TPN)acute Skin infection at gastrostomy tube siteacute [facility] Work Phone: Evaluation note* Diagnosis Onset Date Resolution Status Duodenal mass acuteDuodenal massacuteGram-negative bacteremiaacuteHypokalemiaacuteHypotension acuteLeukocytosisacuteOn total parenteral nutrition (TPN)acuteSkin infection at gastrostomy tube siteacute [facility] Work Phone: Evaluation note* Diagnosis Pre-op [...] hypertrophic pyloric stenosis [facility] Diagnosis 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 Encounter for attention to gastrostomy (HCC) Attention to gastrostomy Malnutrition of moderate degree (HCC) Malnutrition of moderate degree [facility] Diagnosis 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 neuroendocrine tumor of other sites [facility] Diagnosis Anemia, unspecified type- Primary [facility] Diagnosis 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 neuroendocrine tumor of other sites [facility] Diagnosis 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 Gastric outlet obstruction Acquired hypertrophic pyloric stenosis [facility] Diagnosis 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 neuroendocrine tumor of other sites Anemia, unspecified type [facility] Diagnosis 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 neuroendocrine tumor of other sites [facility] Diagnosis 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 [facility] Diagnosis 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 [facility] Diagnosis 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 [facility] Diagnosis 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 neuroendocrine tumor of other sites [facility] Diagnosis 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 neuroendocrine tumor of other sites [facility] Diagnosis 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 neuroendocrine tumor of other sites [facility] Diagnosis 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 Malignant neoplasm of pancreas, unspecified location of malignancy (HCC) Anemia, unspecified type [facility] Diagnosis Pre-op examination- Primary Preoperative examination, [...] of other sites [facility] Diagnosis Pre-op examination- Primary Preoperative [...] of the ileum [facility] Diagnosis Gastric outlet obstruction Acquired hypertrophic pyloric stenosis Pre-op examination- Primary Preoperative examination, unspecified Primary hypertension Unspecified essential hypertension Stage 2 chronic kidney disease Alcoholism (HCC) Other and unspecified alcohol dependence, unspecified drinking behavior Gastroesophageal reflux disease without esophagitis Esophageal reflux 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 [facility] Pre-op examination- Primary Preoperative examination, [...] of malignancy (HCC) [facility] Diagnosis Pre-op examination- Primary Preoperative examination, [...] and cartilage, unspecified [facility] Diagnosis Benign essential hypertension (CMS/HCC) Essential hypertension, benign [facility] Diagnosis Pre-op examination- Primary Preoperative examination, [...] and cartilage, unspecified [facility] Diagnosis Pre-op examination- Primary Preoperative examination, [...] mention of complication [facility] Diagnosis Pre-op examination- Primary Preoperative examination, [...] lump in chest [facility] Diagnosis Pre-op examination- Primary Preoperative examination, [...] lump in chest [facility] Diagnosis 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 Benign essential hypertension (CMS/HCC) Essential hypertension, benign Hypertensive nephropathy (CMS/HCC) Unspecified hypertensive kidney disease with chronic kidney disease stage I through stage IV, or unspecified Stage 2 chronic kidney disease Microalbuminuria Proteinuria documented in this encounter [facility]* Diagnosis Pre-op examination- Primary Preoperative examination, [...] of other sites [facility] Diagnosis Pre-op examination- Primary Preoperative examination, [...] lump in chest [facility] Diagnosis Pre-op examination- Primary Preoperative examination, [...] of other sites [facility] Diagnosis Pre-op examination- Primary Preoperative examination, [...] of other sites [facility] Diagnosis Pre-op examination- Primary Preoperative examination, [...] of other sites [facility] Diagnosis Pre-op examination- Primary Preoperative examination, [...] of the ileum [facility] Diagnosis Benign essential hypertension (CMS/HCC)- Primary Essential hypertension, benign Hypertensive nephropathy (CMS/HCC) Unspecified hypertensive kidney disease with chronic kidney disease stage I through stage IV, or unspecified Stage 3a chronic kidney disease (HCC) (CMS/HCC) Microalbuminuria Proteinuria Mixed hyperlipidemia (CMS/HCC) Mixed hyperlipidemia Benign prostatic hyperplasia with weak urinary stream [facility] Diagnosis Pre-op examination- Primary Preoperative examination, [...] of other sites [facility] Diagnosis Pre-op examination- Primary Preoperative examination, [...] of other sites [facility] Diagnosis Welcome to Medicare preventive [...] Cardiovascular event risk [facility] Pre-op examination- Primary Preoperative examination, [...] of the ileum [facility] Diagnosis Pre-op examination- Primary Preoperative examination, [...] of other sites [facility] Diagnosis Pre-op examination- Primary Preoperative examination, [...] blood loss (chronic) [facility] Diagnosis Pre-op examination- Primary Preoperative [...] anemia type- Primary [facility] Diagnosis Pre-op examination- Primary Preoperative examination, [...] of other sites [facility] Diagnosis Pre-op examination- Primary Preoperative examination, [...] of other sites [facility] Diagnosis Pre-op examination- Primary Preoperative examination, [...] of the ileum [facility] Diagnosis Pre-op examination- Primary Preoperative examination, [...] of other sites [facility] Diagnosis Pre-op examination- Primary Preoperative [...] Bloody diarrhea Diarrhea Lightheadedness Dizziness and giddiness Hematemesis with nausea Melena Blood in stool Hematochezia Blood in stool Acute blood loss anemia Acute posthemorrhagic anemia Gastrointestinal hemorrhage Hemorrhage of gastrointestinal tract, unspecified 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 Lung mass Swelling, mass, or lump in chest Bone lesion Disorder of bone and cartilage, unspecified [facility] Diagnosis Pre-op examination- Primary Preoperative examination, [...] Bloody diarrhea Diarrhea Lightheadedness Dizziness and giddiness Hematemesis with nausea Melena Blood in stool Hematochezia Blood in stool Acute blood loss anemia Acute posthemorrhagic anemia Gastrointestinal hemorrhage Hemorrhage of gastrointestinal tract, unspecified 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 neuroendocrine tumor of other sites [facility] Diagnosis Pre-op examination- Primary Preoperative examination, [...] Bloody diarrhea Diarrhea Lightheadedness Dizziness and giddiness Hematemesis with nausea Melena Blood in stool Hematochezia Blood in stool Acute blood loss anemia Acute posthemorrhagic anemia Gastrointestinal hemorrhage Hemorrhage of gastrointestinal tract, unspecified 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 Iron deficiency anemia secondary to blood loss (chronic) Gastrointestinal hemorrhage, unspecified gastrointestinal hemorrhage type Malignant neoplasm of other parts of pancreas (HCC) Gastritis, presence of bleeding unspecified, unspecified chronicity, unspecified gastritis type Gastric varices Varices of other sites Retroperitoneal lymphadenopathy Enlargement of lymph nodes Functional diarrhea Encounter for antineoplastic chemotherapy and immunotherapy Encounter for antineoplastic chemotherapy Personal history of other malignant neoplasm of small intestine [facility] Diagnosis Visual color changes- Primary Other color vision deficiencies Bilateral posterior capsular opacification Unspecified after-cataract Dry eyes Unspecified tear film insufficiency Blepharitis of upper and lower eyelids of both eyes, unspecified type Other vitamin B12 deficiency anemia [facility] Pre-op examination- Primary Preoperative examination, [...] Bloody diarrhea Diarrhea Lightheadedness Dizziness and giddiness Hematemesis with nausea Melena Blood in stool Hematochezia Blood in stool Acute blood loss anemia Acute posthemorrhagic anemia Gastrointestinal hemorrhage Hemorrhage of gastrointestinal tract, unspecified 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 neuroendocrine tumor of other sites [facility] Diagnosis Pre-op examination- Primary Preoperative [...] Bloody diarrhea Diarrhea Lightheadedness Dizziness and giddiness Hematemesis with nausea Melena Blood in stool Hematochezia Blood in stool Acute blood loss anemia Acute posthemorrhagic anemia Gastrointestinal hemorrhage Hemorrhage of gastrointestinal tract, unspecified 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 Functional diarrhea Malignant neoplasm of other parts of pancreas (HCC) Gastric varices Varices of other sites Gastrointestinal hemorrhage, unspecified gastrointestinal hemorrhage type Encounter for antineoplastic chemotherapy and immunotherapy Encounter for antineoplastic chemotherapy [facility] Diagnosis Benign essential hypertension Essential hypertension, benign Hypertensive nephropathy Unspecified hypertensive kidney disease with chronic kidney disease stage I through stage IV, or unspecified Stage 3a chronic kidney disease (CMS-HCC) Microalbuminuria Proteinuria Mixed hyperlipidemia Mixed hyperlipidemia Alcoholism (HCC) Other and unspecified alcohol dependence, unspecified drinking behavior Overweight documented [facility] Author Cali Patterson [facility] October 06, 2023 10:09pmNote Date/TimeFebruary 2023 10:02pm[place] [address] Hospitalist H&P Signed Patient: Aisha Julien MR#: [id number] : 1955 Acct:[id number] Age/Sex: 68 / M Adm Date: 4 Loc: Room: [address] [place] [address] Type: ADM IN Attending Dr: Cali Patterson DO Copies to: MD Cali Velásquez, DO~ HPI DATE OF EXAMINATION: 10/06/23 CHIEF [...] does have a history of a mass approximately3 and half centimeters round in the third portion of the duodenum,[facility] [...] food. He denies any tenderness around the G-tube site though there is some pus that is actively draining which patient states is not normal andjust started. Review of Systems Review of Systems All other systems reviewed & are negative unless noted below or in HPI [facility] Medical History (Updated 10/06/23 @ 22:08 by [...] List clean-up per [facility] of Phys[facility]: [facility] surgery scopes bilateral knee x 3 Problem List clean-up per request of Phys. [facility] Family History Father Heart disease History [...] mg PO DAILY #30 tabs 07/26/23 [Rx Hufrqsyql16/12/24] Exam Physical Exam Vital Signs: Temp Pulse [...] sounds with no organomegaly, G-tube site with newdressing, there is pus seeping through the new [...] 17:17 Lymph % (Auto) N/A 10/06/23 17:17 [place] % (Auto) N/A 10/06/23 17:17 Eos % (Auto) N/A 10/06/23 17:17 Baso % (Auto) N/A 10/06/23 17:17 Nucleat RBC Rel Count N/A 10/06/23 17:17 Neut # (Auto) N/A 10/06/23 17:17 Lymph # (Auto) N/A 10/06/23 17:17 [place] # (Auto) N/A 10/06/23 17:17 Eos # [...] pH 5.0 (5.0-9.0) 10/06/23 18:34 Ur Specific [place] 1.015 (1.001-1.030) 10/06/23 18:34 Urine Protein Negative [...] Plan: ? Currently being worked up at [facility], stable (6) On total parenteral nutrition (TPN): [...] setting as: INPATIENT because of an expectation ofan over 2 midnight stay. Estimated length of stay (# of days): 3 Documented By: Cali Patterson DO 10/06/232158 Signed By: <Electronically signed by Cali Patterson, DO> 10/06/232208 [facility] Work Phone: Hisqctk general Narrative - Reported* Type Description Date Medical History HTN Medical HistoryGERDSurgical Historyknee arthroscopy BILATEAL-3 TIMES EACH [facility] Other Hisvnt[facility] general Narrative - Reported* Type Description Date Medical History HTN Medical HistoryGERDSurgical Historyknee arthroscopy BILATEAL-3 TIMES EACH Hospitalization HistoryDEHYDRATION [facility] Other Hospital Discharge instructions Additional Instructions DISCHARGE INSTRUCTIONS FOR CARDIAC [employer] INSTRUMENT REPAIRER PHONE NUMBER OF YOUR PHYSICIAN: [phone] PROCEDURE: Heart Cath The following instructions have [...] cold, numb, blue or white, call the client hr manager immediately. 4. ACTIVITY: You are advised to [...] bottle, follow the instructions on the bottle. [facility] is not responsible for incorrect prescription information provided by the patient during their visit. Do not stop your medications without consulting your health care provider. Please take the list with you to your next doctor's appointment.[facility] Work Phone: Hospital Discharge instructions Additional Instructions You will need to follow-up with [place] [facility] physician Dr. Bety Amin for further evaluation of your duodenal mass. Dr. Tadeo's office will arrange appointment and we will give you a [facility] Work Phone: Progress note Author Gela Eller [facility] July 26, 2023 2:50pmNote Date/TimeDecemb2022 2:50pm[address] [address] Hospitalist Progress Note Signed Patient: Aisha Julien MR#: [id number] : 1955 Acct:[id number] Age/Sex: 68 / M Adm Date: 3 Loc: 3T Room: [address] [place] [address] Type: ADM IN Attending Dr: Gela Eller [...] Lactated Ringers IV 07/24/24 13:14 75 mls/hr .[id number] [facility] Administration Sodium Chloride 1,000 mls @ [...] external mass effect/compression I did discuss with learning design specialist, his office will arrange follow-up with gastroenterology [...] signed by Gela Eller MD> 07/26/23 1450 [facility] Work Phone: [facility] (narrative)* Diagnostic Procedure Only (Routine) - AuthorizedSpecialtyDiagnoses / ProceduresReferred By Contact Referred To ContactMOLECULAR & FUNCTIONAL IMAGING 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 Bone lesion Procedures NM PET/CT WHOLE BODY SUBSEQUENT PET IMAGING FOR CT ATTENUATION WHOLE BODY Roselyn Leonard MD [address] [place] [address] [place] [address] Molecular & Functional Imaging [address] [place] [address] Referral IDStatusReasonStart DateExpiration DateVisits RequestedVisits [id number] Auto-Generated Referral / [facility] for referral (narrative)* Diagnostic Procedure Only (Routine) - New RequestSpecialtyDiagnoses / ProceduresReferred By Contact Referred To ContactMOLECULAR & FUNCTIONAL IMAGING Diagnoses 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 Procedures NM PET/CT NEUROENDOCRINE WHOLE BODY IMAGING PET IMAGING CT ATTENUATION SKULL BASE [place]TH[place] Roselyn Leonard MD [address] [place] [address] [place] [address] Molecular & Functional Imaging [address] [place] [address] Referral IDStatusPennieasonStart DateExpiration DateVisits RequestedVisits [id number] Request Auto-Generated Referral / [facility] for referral (narrative)* Diagnostic Procedure Only (Routine) - New RequestSpecialtyDiagnoses / ProceduresReferred By Contact Referred To ContactMOLECULAR & FUNCTIONAL IMAGING Diagnoses Malignant carcinoid tumor of ileum (HCC) Procedures NM PET/CT NEUROENDOCRINE WHOLE BODY IMAGING PET IMAGING CT ATTENUATION SKULL BASE [place] Roselyn Leonard MD [address] [place] [address] [place] [address] Molecular & Functional Imaging [address] [place] [address] Referral IDStatusReasonStart DateExpiration DateVisits RequestedVisits [id number] Request Auto-Generated Referral / [facility] for visit Narrative* Diagnostic Procedure Only (Routine) - ClosedSpecialtyDiagnoses / ProceduresReferred By ContactReferred To Contact MOLECULAR & FUNCTIONAL IMAGING Diagnoses 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 Procedures NM PET/CT NEUROENDOCRINE WHOLE BODY IMAGING PET IMAGING CT ATTENUATION SKULL BASE [place]IUM [place]-[address] Roselyn Leonard MD [address] [place] [address] [place] [address] Molecular & Functional Imaging [address] [place] [address] Referral IDStatusReasonStbelleville DateExpiration DateVisits RequestedVisits [id number] Auto-Generated Referral [facility] for visit Narrative* [place] Prior Authorization (Routine) - DeniedSpecialtyDiagnoses / ProceduresReferred By ContactReferred To Contact Diagnoses 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) Procedures OCTREOTIDE INJECTION, DEPOT Roselyn Leonard MD [address] [place] [address] [place] [address] Phone: tel: fax: Hematology/Oncology [address] [place] [address] [place] [address] Phone: tel: fax: Referral IDStatusReasonStart DateExpiration DateVisits RequestedVisits [id number] Patient Cleared - Admin/Test Rack Operator/Director advise to proceed or did not respond [facility] for visit Narrative* [place] Prior Authorization (Routine) - AuthorizedSpecialtyDiagnoses / ProceduresReferred By ContactReferred To Contact Diagnoses 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) Procedures OCTREOTIDE INJECTION, DEPOT Roselyn Leonard MD [address] [place] [address] [address] [place] [id number] Phone: tel: fax: Hematology/Oncology [address] [place] [address] [address] [place] [id number] Phone: tel: fax: Referral IDStatusReasonStbelleville DateExpiration DateVisits RequestedVisits [id number] Patient Cleared - Admin/Test Rack Operator/Director advise to proceed or did not respond [facility] for visit Narrative* Diagnostic Procedure Only (Routine) - ClosedSpecialtyDiagnoses / ProceduresReferred By ContactReferred To Contact MOLECULAR & FUNCTIONAL IMAGING Diagnoses Malignant carcinoid tumor of ileum (HCC) Procedures NM PET/CT NEUROENDOCRINE WHOLE BODY IMAGING PET IMAGING CT ATTENUATION SKULL BASE [place] Roselyn Leonard MD [address] [place] [address] [place] [address] Phone: tel: fax: Molecular Imaging [address] [place] [address] Phone: tel: Referral IDStatusReasonStart DateExpiration DateVisits RequestedVisits [id number] Auto-Generated Referral [facility] for visit Narrative* [place] Prior Authorization (Routine) - Pending ReviewSpecialtyDiagnoses / ProceduresReferred By ContactReferred To Contact Diagnoses 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) Procedures OCTREOTIDE INJECTION, DEPOT Roselyn Leonard MD [address] [place] [address] [address] [place] [id number] Phone: tel: fax: Hematology/Oncology [address] [place] [address] [address] [place] [id number] Phone: tel: fax: Referral IDStatusReasonStart DateExpiration DateVisits RequestedVisits [id number] Patient Cleared - Admin/Test Rack Operator/Director advise to proceed or did not respond [facility] for visit Narrative* [place] Prior Authorization (Routine) - AuthorizedSpecialtyDiagnoses / ProceduresReferred By ContactReferred To Contact Diagnoses 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) Procedures ISABELREOTIDE INJECTION, DEPOT Roselyn Leonard MD [address] [place] [address] [address] [place] [id number] Phone: tel: fax: Hematology/Oncology [address] [place] [address] [address] [place] [id number] Phone: tel: fax: Referral IDStatusReasonStbelle[place] DateExpiration DateVisits RequestedVisits [id number] Patient Cleared - Admin/Test Rack Operator/Director advise to proceed or did not respond [facility] for visit Narrative* Diagnostic Procedure Only (Routine) - ClosedSpecialtyDiagnoses / ProceduresReferred By ContactReferred To Contact MOLECULAR & FUNCTIONAL IMAGING 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 Bone lesion Procedures NM PET/CT NEUROENDOCRINE WHOLE BODY IMAGING PET IMAGING CT ATTENUATION SKULL BASE [place] Roselyn Leonard MD [address] [place] [address] [place] [address] Phone: tel: fax: Molecular Imaging [address] [place] [address] Phone: tel: Referral IDStatusReasonStart DateExpiration DateVisits RequestedVisits [id number] Auto-Generated Referral [facility] Summary Purpose Family History No Family History Records Found Relationship Condition Age at Onset Recorded Date/T jesus father Heart disease Unknown History of heart surgeryUnknownMyocardial infarctionUnknownsisterMalignant neoplasm of liverUnknown Unknown Family Member Name Dates Details Anticoagulated: Mother Status:ActiveFamily history of myocardial infarction: Father(V17.3, Z82.49) Status:ActiveDeceased: Father, Sister Status:ActiveS/P CABG (coronary artery bypass graft): Father(V45.81, Z95.1) Status:ActiveFamily history of coronary artery disease: Father(V17.3, Z82.49) Status:ActiveFamily history of hyperlipidemia: Father(V18.19, Z83.438) Status:ActiveFamily history of malignant neoplasm: Sister(V16.9, Z80.9) Status:ActiveFamily history of heart murmur: Sister(V17.49, Z82.49) Status:Active Relationship Condition Age at Onset Recorded Date/T jesus father Heart disease Unknown History of heart surgeryUnknownMyocardial infarctionUnknownsisterMalignant neoplasm of liverUnknownfatherDeceasedUnknownfamily memberDeceasedUnknownNot SpecifiedDeceasedUnknownsisterMalignant neoplasmUnknown Relationship Condition Age at Onset Recorded Date/T jesus father Heart disease Unknown History of heart surgeryUnknownMyocardial infarctionUnknownsisterMalignant neoplasm of liverUnknownfatherDeceasedUnknownfamily memberDeceasedUnknownmother DeceasedUnknownsisterMalignant neoplasmUnknown Advance Directives No Advanced Directives Records Found Date ActivatedDate InactivatedComments02/25/2025 9:04 PM02/27/2025 9:45 PMQuestion AnswerCommentsFull Code Order Discussed With:* Patient Date ActivatedDate InactivatedComments02/23/2025 6:26 PM02/25/2025 8:02 PMQuestion AnswerCommentsFull Code Order Discussed With:* Surrogate Decision Maker Date ActivatedDate InactivatedComments10/31/2024 2:42 PM11/03/2024 8:00 PMQuestion AnswerCommentsFull Code Order Discussed With:* Patient Advance Directive Response Recorded Date/ Time Advance Directives No June 04, 2021 10:29am Advance Directive Response Recorded Date/ Time Advance Directives No June 04, 2021 9:29am TypeDate RecordedPatient RepresentativeExplanationAdvance Directives and Living [id number] Power Of AttorneyDate ActivatedDate InactivatedComments 10/31/2024 2:42 PMDate ActivatedDate InactivatedComments10/31/2024 2:42 PM11/03/2024 8:00 PMQuestionAnswerCommentsFull Code Order Discussed With:* Patient Date ActivatedDate InactivatedComments10/31/2024 2:42 PM11/03/2024 8:00 PMDate ActivatedDate InactivatedComments02/25/2025 9:04 PM02/27/2025 9:45 PMDate Activated Date InactivatedComments02/23/2025 6:26 PM02/25/2025 8:02 PMQuestionAnswerComments Full Code Order Discussed With:* Surrogate Decision Maker Date ActivatedDate InactivatedComments10/31/2024 2:42 PM11/03/2024 8:00 PMQuestion AnswerCommentsFull Code Order Discussed With:* Patient Reason for Referral SpecialtyDiagnoses / ProceduresReferred By ContactReferred To Contact Diagnoses Chest pain, unspecified type Syncope, unspecified syncope type Procedures Cardiac event monitor Douglas Gutierrez MD [address] [place] [address] Referral IDStatusReasonStart DateExpiration DateVisits RequestedVisits [id number] / Procedures Referred By ContactReferred To ContactCardiology Diagnoses Chest pain, unspecified type Syncope, unspecified syncope type R07.9 (ICD-10-CM) - Chest pain, unspecified type Procedures Stress test, myoview CHG MYOCARDIAL SPECT MULTIPLE STUDIES 14293 - CHG MYOCARDIAL SPECT MULTIPLE STUDIES Douglas Gutierrez MD [address] [place] [address] [facility] [address] [place] [address] Referral IDStatusReasonStart DateExpiration DateVisits RequestedVisits [id number]/3/20223/3/637286EavohvxhuErrrfbbsu / Procedures Referred By ContactReferred To ContactVascular Lab Diagnoses Bruit R09.89 (ICD-10-CM) - Bruit Procedures VL DUP CAROTID BILATERAL ID DUPLEX SCAN EXTRACRANIAL,BILAT 00423 - ID DUPLEX SCAN EXTRACRANIAL,BILAT Douglas Gutierrez MD [address] [place] [address] Referral IDStatusReasonStart DateExpiration DateVisits RequestedVisits [id number] [id number] / ProceduresReferred By ContactReferred To ContactOncology Diagnoses Primary malignant neuroendocrine tumor of ileum (HCC) Procedures [place] [address] [place] [address] Roselyn Leonard MD [address] [place] [address] [place] [address] Referral IDStatusReasonPiedmont DateExpiration DateVisits RequestedVisits [id number] Not Required PCP Requested Referral [id number] / ProceduresReferred By ContactReferred To ContactCT IMAGING Diagnoses Malignant carcinoid tumor of ileum (HCC) Procedures CT PANCREAS/PELVIS W IVCON CT ABD & PELVIS W/CONTRAST Roselyn Leonard MD [address] [facility] [place] [address] Ct Imaging [facility]95 Referral IDStatusReasonStart DateExpiration DateVisits RequestedVisits [id number] Auto-Generated Referral /[id number] / ProceduresReferred By ContactReferred To ContactCT IMAGING 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) Procedures CT CHEST W IVCON DIAGNOSTIC COMPUTED TOMOGRAPHY THORAX W/CONTRAST Roselyn Leonard MD [address] [facility] [address] [place] [id number] Ct Imaging [place] [address] Referral IDStatusReasonStart DateExpiration DateVisits RequestedVisits [id number] Request Auto-Generated Referral /[id number] / ProceduresReferred By ContactReferred To ContactCT IMAGING 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, unspecified location of malignancy (HCC) Procedures CT PANCREAS/PELVIS W IVCON CT ABD & PELVIS W/CONTRAST Roselyn Leonard MD [address] [facility] [address] [place], [facility] [address] Imaging [place] [address] Referral IDStatusReasonStart DateExpiration DateVisits RequestedVisits [id number] Review Auto-Generated Referral /[id number] IDStatusReasonStart DateExpiration DateVisits RequestedVisits [id number] Auto-Generated Referral /[id number] / ProceduresReferred By ContactReferred To ContactCT IMAGING Diagnoses Gastric outlet obstruction Procedures CT PANCREAS/PELVIS W IVCON CT ABD & PELVIS W/CONTRAST Cleveland De León MD [address] [place] [address] [place] [address] Referral IDStatusReasonStart DateExpiration DateVisits RequestedVisits [id number] Auto-Generated Referral eferral IDStatusReasonStart DateExpiration DateVisits RequestedVisits [id number] Auto-Generated Referral eferral IDStatusReasonStart DateExpiration DateVisits RequestedVisits [id number] Auto-Generated Referral Chief Complaint and Reason for Visit Chief Complaint Abnormal Stress, SOB Abnormal Stress, SOB Chief Complaint dizzy,abnormal labs Reason for Visit Acute renal failure Epigastric pain Hypokalemia Hypotension Small bowel mass Unintentional weight loss Chief Complaint dizzy,abnormal labs Reason for Visit Acute renal failure Duodenal mass Epigastric pain Hypokalemia Hypotension Small bowel mass Unintentional weight loss Chief Complaint dizzy,abnormal labs low bp low bpReason for VisitHypokalemia Hypotension Leukocytosis On total parenteral nutrition (TPN) Skin infection at gastrostomy tube site Chief Complaint dizzy,abnormal labs low bp low bp low bpReason for VisitDuodenal mass Duodenal mass Gram-negative bacteremia Hypokalemia Hypotension [...] on a as needed basis Health Concerns InfectionOnset DateLast IndicatedResolved TimeCOVID-19 Rule-Out08/28/2023 7:18 PM EST Additional Source Comments (unrecognized sect ion and content) No Status Records FoundNo Status Records FoundNo Status Records FoundNo Status Records FoundNo Status Records FoundNo Status Records FoundNo Status Records FoundNo Status Records FoundNo Status Records FoundNo Status Records FoundNo Status Records FoundNo Status Records Found INFORMATION SOURCE (unrecogn ized section and content) DATE CREATED AUTHOR 10/17/2021 [facility] 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 DATE CREATED AUTHOR AUTHOR'S ORGANIZ ATION 11/04/2021 [facility] DATE CREATED AUTHOR AUTHOR'S ORGANIZ ATION 12/15/2021 [facility] DATE CREATED AUTHOR AUTHOR'S ORGANIZ ATION 07/05/2022 [facility] DATE CREATED AUTHOR AUTHOR'S ORGANIZ ATION 02/03/2023 [facility] DATE CREATED AUTHOR AUTHOR'S ORGANIZ ATION 10/31/2024 [facility] DATE CREATED AUTHOR AUTHOR'S ORGANIZ ATION 03/04/2025 [facility] DATE CREATED AUTHOR AUTHOR'S ORGANIZ ATION 03/06/2025 [facility] DATE CREATED AUTHOR AUTHOR'S ORGANIZ ATION 04/02/2025 [facility] DATE CREATED AUTHOR AUTHOR'S ORGANIZ ATION 04/07/2025 [facility] DATE CREATED AUTHOR AUTHOR'S ORGANIZ ATION 04/14/2025 [facility] DATE CREATED AUTHOR AUTHOR'S ORGANIZ ATION 07/01/2025 [facility] Reason for Visit (unrecogniz ed section and content) SpecialtyDiagnoses / ProceduresReferred By ContactReferred To Contact Diagnoses Chest pain, unspecified type Syncope, unspecified syncope type Procedures Cardiac event monitor Douglas Gutierrez MD [address] [place] [address] Referral IDStatusReasonStart DateExpiration DateVisits RequestedVisits [id number]/3/20223/3/012545BygecgpeeBzgwyolgq / Procedures Referred By ContactReferred To ContactCardiology Diagnoses Chest pain, unspecified type Syncope, unspecified syncope type R07.9 (ICD-10-CM) - Chest pain, unspecified type Procedures Stress test, myoview CHG MYOCARDIAL SPECT MULTIPLE STUDIES 45152 - CHG MYOCARDIAL SPECT MULTIPLE STUDIES Douglas Gutierrez MD [address] [place] [address] [facility] [address] [place] [address] Referral IDStatusReasonStart DateExpiration DateVisits RequestedVisits [id number]/3/20223/3/247353OemdcgpaiJpahprbej / Procedures Referred By ContactReferred To ContactVascular Lab Diagnoses Bruit R09.89 (ICD-10-CM) - Bruit Procedures VL DUP CAROTID BILATERAL ID DUPLEX SCAN EXTRACRANIAL,BILAT 31306 - ID DUPLEX SCAN EXTRACRANIAL,BILAT Douglas Gutierrez MD [address] [place] [address] Referral IDStatusReasonStart DateExpiration DateVisits RequestedVisits [id number] [id number]f ReasonCommentsNew Patient EvaluationReasonCommentsFMLA PaperworkReasonComments Follow UpGastric outlet obstructionReasonCommentsReceived Outside Medical RecordsReasonCommentsRecent HospitalizationReasonCommentsPost Op Follow Up10/29/23 gastrojejunostomy w/o vagotomyReasonCommentsCare CoordinationNew Patient SpecialtyDiagnoses / ProceduresReferred By ContactReferred To Contact Diagnoses 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) Procedures OCTREOTIDE INJECTION, DEPOT Roselyn Leonard MD [address] [place] [address] [place] [address] [facility] [place] [place] [address] Referral IDStatusReasonStart DateExpiration DateVisits RequestedVisits [id number]/26/202412/31/36660178QxzwefTlxurmprXfxqf bowel NET New patient consultReasonCommentsDisability MemoReasonCommentsReturn To Work LetterReasonCommentsSchedule SurgeryCare Coordinator - OtherReasonCommentsLab OrdersReasonCommentsAnemia1 month follow upReasonCommentsOrdersReasonComments Care CoordinationScan ResultsReferral IDStatusReasonStart DateExpiration Date Visits RequestedVisits [id number] Request/[id number] ReasonCommentsRadiology CTSpecialtyDiagnoses / ProceduresReferred By Contact Referred To ContactCT IMAGING Diagnoses Malignant carcinoid tumor of ileum (HCC) Procedures CT PANCREAS/PELVIS W IVCON CT ABD & PELVIS W/CONTRAST Roselyn Leonard MD [address] [facility] [place] [address] Ct Imaging [place] [address] Referral IDStatusReasonStart DateExpiration DateVisits RequestedVisits [id number] Auto-Generated Referral [id number] / ProceduresReferred By ContactReferred To ContactCT IMAGING Diagnoses Gastric outlet obstruction Procedures CT PANCREAS/PELVIS W IVCON CT ABD & PELVIS W/CONTRAST Cleveland De León MD [address] [place] [address] Ct Imaging [place] [address] Referral IDStatusReasonStart DateExpiration DateVisits RequestedVisits [id number] Auto-Generated Referral [id number] / ProceduresReferred By ContactReferred To ContactCT IMAGING 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, unspecified location of malignancy (HCC) Procedures CT PANCREAS/PELVIS W IVCON CT ABD & PELVIS W/CONTRAST Roselny Leonard MD [address] [facility] [place] [address] Ct Imaging [facility]95 Referral IDStatusReasonStart DateExpiration DateVisits RequestedVisits [id number] Auto-Generated Referral [id number] carcinoid tumor of ileumReason CommentsMed RefillReasonCommentsResultsReasonCommentsRadiology NMSpecialty Diagnoses / ProceduresReferred By ContactReferred To ContactMOLECULAR & FUNCTIONAL IMAGING 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 Bone lesion Procedures NM PET/CT WHOLE BODY SUBSEQUENT PET IMAGING FOR CT ATTENUATION WHOLE BODY Roselyn Leonard MD [address] [place] [address] [place] [address] Molecular & Functional Imaging [address] [place] [address] Referral IDStatusReasonStart DateExpiration DateVisits RequestedVisits [id number] Auto-Generated Referral [id number] malignant neuroendocrine tumor to lymph node (HCCReasonCommentsNm Pet RequestSpecialtyDiagnoses / Procedures Referred By ContactReferred To ContactMOLECULAR & FUNCTIONAL IMAGING Diagnoses 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 Procedures NM PET/CT NEUROENDOCRINE WHOLE BODY IMAGING PET IMAGING CT ATTENUATION SKULL BASE MID[place]THIGH [place] Roselyn Leonard MD [address] [place] [address] [place] [address] Molecular & Functional Imaging [address] [place] [address] Referral IDStatusReasonStart DateExpiration DateVisits RequestedVisits [id number] Auto-Generated Referral [id number]jjCdvtqeuc IDStatusReasonStart DateExpiration DateVisits RequestedVisits [id number]/26/202440678733NbfbroCrgzwugvCovksotubm malignant neuroendocrine tumor to lymph node (HCReasonOnset DateCommentsRefill Qfkgbdv4209/17/2024Sandostatin 20mg LAR must be whitebaggedReasonOnset DateCommentsErroneous encounter-disregard 09/21/2024Referral IDStatusReasonStart DateExpiration DateVisits RequestedVisits [id number] Patient Cleared - Admin/Test Rack Operator/Director advise to proceed or did not respond /[id number] AuthorizationSandostatin LAR 20mg Pharmacy prior auth pendingReasonOnset DateCommentsRefill Yuajzsv4010/15/2024 ReasonCommentsHypertensionHyperlipidemiaReasonCommentsHospital Follow UpReason CommentsMedication Follow-upPET scan questionPatient QuestionReasonComments Malignant carcinoid tumor of ileumHospital Follow UpReasonCommentsAnnual Exam SpecialtyDiagnoses / ProceduresReferred By ContactReferred To ContactMOLECULAR & FUNCTIONAL IMAGING Diagnoses Malignant carcinoid tumor of ileum (HCC) Procedures NM PET/CT NEUROENDOCRINE WHOLE BODY IMAGING PET IMAGING CT ATTENUATION SKULL BASE MID-THIGH Roselyn Leonard MD [address] [place] [address] [place] [address] Phone: tel: fax: Molecular Imaging [address] [place] [address] Phone: tel: Referral IDStatusReasonStart DateExpiration DateVisits RequestedVisits [id number] Auto-Generated Referral /[id number]cysmc carcinoid tumor of ileumReason Onset DateCommentsIV iron12/13/2024ReasonCommentsMalignant carcinoid tumor of ileumFollow upSpecialtyDiagnoses / ProceduresReferred By ContactReferred To ContactMOLECULAR & FUNCTIONAL IMAGING 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 Bone lesion Procedures NM PET/CT NEUROENDOCRINE WHOLE BODY IMAGING PET IMAGING CT ATTENUATION SKULL BASE MID-THIGH Roselyn Leonard MD [address] [place] [address] [place] [address] Phone: tel: fax: Molecular Imaging [address] [place] [address] Phone: tel: Referral IDStatusReasonStart DateExpiration DateVisits RequestedVisits [id number] Auto-Generated Referral /[id number] VisionReasonCommentsMetastatic malignant neuroendocrine tumor to lymph nodeFollow upReasonCommentsNm Pet RequestNeuroendocrine whole body pet scan week of 05-23-25.ReasonComments HypertensionBenign Prostatic Hypertrophy Care Teams (unrecognized sec tion and content) Team Status: Active Member Role Status Rene Cannon MD Primary Care Provider Active Team Status: Inactive Member Role Status Dates Rene Cannon MD Primary Care Provider Active Michelle Mccollum ProviderActiveGela Eller MDAdmalex Provider, Attending ProviderRoxy Calzada MDOther ProviderGissell Linder MD Other ProviderActive Team Status: Active Member Role Status Dates Rene Cannon MD Primary Care Provider Active Michelle Mccollum ProviderActiveGela Eller MDAdmalex Provider, Attending ProviderRoxy Calzada MDOther ProviderActiveNohemy Linder MD Other ProviderActiveTeam MemberRelationshipSpecialtyStart DateEnd Date Rene Cannon MD [address] [place] [address] PCP - General10/17/21Team MemberRelationshipSpecialtyStart DateEnd Date Rene Cannon MD [address] [place] [address] PCP - General10/17/21Team MemberRelationshipSpecialtyStart DateEnd Date Rene Cannon MD [address] [place] [address] PCP - General10/17/21Team MemberRelationshipSpecialtyStart DateEnd Date Rene Cannon MD [address] [place] [address] PCP - General10/17/21Team MemberRelationshipSpecialtyStart DateEnd Date Rene Cannon MD [address] [place] [address] PCP - General10/17/21 Team Status: Inactive Member Role Status Dates Rene Cannon MD Primary Care Provider Active W Gee Pisano ProviderActiveTeam MemberRelationshipSpecialty Start DateEnd Date Rene Cannon MD [address] [place] [address] (Fax) PCP - [facility] Nkgqdxfg87/12/23Team MemberRelationshipSpecialtyStart Date End Date Rene Cannon MD [address] [place] [address] (Fax) PCP - [facility] Vqqholfj51/12/23Team MemberRelationshipSpecialtyStart Date End Date Rene Cannon MD [address] [place] [address] (Fax) PCP - [facility] Gtdqlxkl56/12/23Team MemberRelationshipSpecialtyStart Date End Date Rene Cannon MD [address] [place] [address] (Fax) PCP - [facility] Dydcnjsb51/12/23Team MemberRelationshipSpecialtyStart Date End Date Rene Cannon MD [address] [place] [address] (Fax) PCP - [facility] Obwtxpjg44/12/23Team MemberRelationshipSpecialtyStart Date End Date Rene Cannon MD [address] [place] [address] PCP - [facility]08/05/23 Team Status: Inactive Member Role Status Dates Rene Cannon MD Primary Care Provider Active Start: July 24, 2023 End: July 26, 2023Michelle Mccollum ProviderActiveStart: July 24, 2023 End: July 26, 2023Gela Eller MDAdmalex Provider, Attending Provider ActiveStart: July 24, 2023 End: July 26zeinab Calzada MDOther ProviderActiveStart: July 24, 2023 End: July 26, 2023Nohemy Linder MDOther ProviderActiveStart: July 24, 2023 End: July 26, 2023 Team Status: Active Member Role Status Dates Rene Cannon MD Primary Care Provider Active Start: October 06, 2023 Michelle Mccollum ProviderActiveStart: October 06, 2023 Yana Cano Provider, Attending ProviderActiveStart: October 06, 2023 Team Status: Active Member Role Status Dates Rene Cannon MD Primary Care Provider Active Start: October 06, 2023 Michelle Mccollum ProviderActiveStart: October 06, 2023 Yana Cano Provider, Attending Provider, Other ProviderActive Start: October 06, 2023 Team MemberRelationshipSpecialtyStart DateEnd Date Rene Cannon MD [address] [place] [address] PCP - [facility]08/05/23 Team Status: Inactive Member Role Status Dates Rene Cannon MD Primary Care Provider Active Start: October 06, 2023 End: October 10, 2023Michelle Mccollum ProviderActiveStart: October 06, 2023 End: October 10, 2023Yana Cano ProviderActiveStart: October 06, 2023 End: October 10, 2023Eber Suarez MDOther ProviderActiveStart: October 06, 2023 End: October 10, 2023Johnny Mendoza , DOAttending ProviderActiveStart: October 06, 2023 End: October 10, 2023 Team Status: Active Member Role Status Dates Rene Cannon MD Primary Care Provider Active Start: October 08, 2023 Michelle Mccollum ProviderActiveStart: October 08, 2023 Cali Patterson , DOAdmit Provider, Other ProviderActiveStart: October 08, 2023 Eber Suarez , MDAttending Provider, Other ProviderActiveStart: October 08, 2023 Team MemberRelationshipSpecialtyStart DateEnd Date Rene Cannon MD [address] [place] [address] (Fax) PCP - [facility] Alnzwnvs77/12/23Team MemberRelationshipSpecialtyStart Date End Date Rene Cannon MD [address] [facility] [place] [address] (Fax) PCP - [facility] Jefehtkc71/12/23Team MemberRelationshipSpecialtyStart Date End Date Rene Cannon MD [address] [place] [address] (Fax) PCP - [facility] Qmniujwd70/12/23Team MemberRelationshipSpecialtyStart Date End Date Rene Cannon MD [address] [place] [address] (Fax) PCP - [facility] Wevnkefw44/12/23Team MemberRelationshipSpecialtyStart Date End Date Rene Cannon MD [address] [facility] [place] [address] (Fax) PCP - Generalmily Uzyqernk07/12/23Team MemberRelationshipSpecialtyStart Date End Date Rene Cannon MD [address] [place] [address] (Fax) PCP - [facility] Rrzgxcnw37/12/23Team MemberRelationshipSpecialtyStart Date End Date Rene Cannon MD [address] [place] [address] (Fax) PCP - [facility]08/05/23Team MemberRelationshipSpecialtyStart Date End Date Rene Cannon MD [address] [place] [address] (Fax) PCP - [facility]08/05/23Team MemberRelationshipSpecialtyStart Date End Date Rene Cannon MD [address] [place] [address] (Fax) PCP - [facility]08/05/23Team MemberRelationshipSpecialtyStart Date End Date Rene Cannon MD [address] [place] [address] (Fax) PCP - [facility] Ibucdufa16/12/23Team MemberRelationshipSpecialtyStart Date End Date Rene Cannon MD [address] [place] [address] (Fax) PCP - [facility] Tnvkljch42/12/23Team MemberRelationshipSpecialtyStart Date End Date Rene Cannon MD [address] [place] [address] (Fax) PCP - [facility] Gtlpkere17/12/23Team MemberRelationshipSpecialtyStart Date End Date Rene Cannon MD [address] [place] [address] (Fax) PCP - [facility] Fnhrehdy21/12/23Team MemberRelationshipSpecialtyStart Date End Date Rene Cannon MD [address] [place] [address] (Fax) PCP - [facility] Gznxvhsk30/12/23Team MemberRelationshipSpecialtyStart Date End Date Rene Cannon MD [address] [place] [address] (Fax) PCP - [facility] Mrvfhjrq94/12/23Team MemberRelationshipSpecialtyStart Date End Date Rene Cannon MD [address] [place] [address] (Fax) PCP - [facility] Admiufnm73/12/23Team MemberRelationshipSpecialtyStart Date End Date Rene Cannon MD [address] [place] [address] (Fax) PCP - [facility] Czhmqdsv81/12/23Team MemberRelationshipSpecialtyStart Date End Date Rene Cannon MD [address] [place] [address] (Fax) PCP - GeneralFamily Ngmtyxwh83/12/23Team MemberRelationshipSpecialtyStart Date End Date Rene Cannon MD [address] [place] [address] (Fax) PCP - GeneralFamily Rfjvixvr98/12/23Team MemberRelationshipSpecialtyStart Date End Date Rene Cannon MD [address] [place] [address] (Fax) PCP - Generalmily Nqpmoggw15/12/23Team MemberRelationshipSpecialtyStart Date End Date Rene Cannon MD [address] [place] [address] (Fax) PCP - GeneralFamily Rnhxlnoa09/12/23Team MemberRelationshipSpecialtyStart Date End Date Rene Cannon MD [address] [place] [address] (Fax) PCP - GeneralFamily Ikinidqn52/12/23Team MemberRelationshipSpecialtyStart Date End Date Rene Cannon MD [address] [place] [address] PCP - GeneralFamily Medicine01/24/23 Rene Cannon MD [address] [place] [address] (Fax) PCP - [employer]03/25/24Team MemberRelationshipSpecialtyStart DateEnd Date Rene Cannon MD [address] [place] [address] PCP - [facility]01/24/23Team MemberRelationshipSpecialtyStart DateEnd Date Rene Cannon MD [address] [facility] [place] [address] (Fax) PCP - [facility]08/05/23Team MemberRelationshipSpecialtyStart Date End Date Rene Cannon MD [address] [facility] [place] [address] (Fax) PCP - [facility]08/05/23Team MemberRelationshipSpecialtyStart Date End Date Rene Cannon MD [address] [facility] [place] [address] (Fax) PCP - [facility]08/05/23Team MemberRelationshipSpecialtyStart Date End Date Rene Cannon MD (Fax) PCP - [facility]01/24/23Team MemberRelationshipSpecialtyStart DateEnd Date Rene Cannon MD [address] [facility] [place] [address] (Fax) PCP - [facility]08/05/23Team MemberRelationshipSpecialtyStart Date End Date Rene Cannon MD [address] [place] [address] PCP - GeneralFamily Medicine01/24/23Team MemberRelationshipSpecialtyStart DateEnd Date Rene Cannon MD [address] [place] [address] PCP - GeneralFamily Medicine01/24/23Team MemberRelationshipSpecialtyStart DateEnd Date Rene Cannon MD [address] [place] [address] PCP - GeneralFamily Medicine01/24/23Team MemberRelationshipSpecialtyStart DateEnd Date Rene Cannon MD [address] [address] PCP - GeneralFamily Medicine01/24/23 Rene Cannon MD [address] [place] [address] (Fax) PCP - [employer]03/25/24Team MemberRelationshipSpecialtyStart DateEnd Date Rene Cannon MD (Fax) PCP - GeneralFamily Medicine01/24/23Team MemberRelationshipSpecialtyStart DateEnd Date Rene Cannon MD [address] [facility] [place] [address] (Fax) PCP - GeneralFamily Lbqkwspu25/12/23Team MemberRelationshipSpecialtyStart Date End Date Rene Cannon MD [address] [place] [address] (Fax) PCP - [facility]08/05/23Team MemberRelationshipSpecialtyStart Date End Date Rene Cannon MD (Fax) PCP - [facility]01/24/23Team MemberRelationshipSpecialtyStart DateEnd Date Rene Cannon MD [address] [place] [address] (Fax) PCP - [facility]08/05/23Team MemberRelationshipSpecialtyStart Date End Date Rene Cannon MD (Fax) PCP - [facility]01/24/23Team MemberRelationshipSpecialtyStart DateEnd Date Rene Cannon MD (Fax) PCP - [facility]01/24/23Team MemberRelationshipSpecialtyStart DateEnd Date Rene Cannon MD [address] [place] [address] (Fax) PCP - [facility]08/05/23 Team Status: Inactive Member Role Status Dates Rene Cannon MD Primary Care Provider Active Start: October 28, 2024 End: October 28, 2024Michelle Ramos ProviderActiveStart: October 28, 2024 End: October 28, 2024Darrius Brown MD RESActiveStart: October 28, 2024 End: October 28, 2024Team MemberRelationshipSpecialtyStart DateEnd Date Rene Cannon MD [address] [place] [address] (Fax) PCP - GeneralFamily Orovjjhl59/12/23Team MemberRelationshipSpecialtyStart Date End Date Rene Cannon MD [address] [place] [address] (Fax) PCP - GeneralFamily Mgcbugdk39/12/23Team MemberRelationshipSpecialtyStart Date End Date Rene Cannon MD [address] [place] [address] (Fax) PCP - Generalmily Wcrdlmgy46/12/23Team MemberRelationshipSpecialtyStart Date End Date Rene Cannon MD [address] [place] [address] (Fax) PCP - GeneralFamily Tkyjbrlf59/12/23 Roselyn Leonard MD [address] [place] [address] [place] [address] Hematology/Oncology11/17/24Team MemberRelationshipSpecialtyStart DateEnd Date Rene Cannon MD (Fax) PCP - GeneralFamily Medicine01/24/23Team MemberRelationshipSpecialtyStart DateEnd Date Rene Cannon MD (Fax) PCP - GeneralFamily Medicine01/24/23 Roselyn Leonard MD [address] [place] [address] [place] [address] Referring PhysicianHematology and Oncology11/23/24 Jean Madsen MD [address] [facility] 2, [facility] [address] [place] [address] Referring PhysicianCardiology11/23/24Team MemberRelationshipSpecialtyStart DateEnd Date Rene Cannon MD (Fax) PCP - GeneralFamily Medicine01/24/23 Roselyn Leonard MD [address] [facility] [place] [address] Referring PhysicianHematology and Oncology11/23/24 Jean Madsen MD [address] [facility] 2, [facility] [address] [place] [address] Referring PhysicianCardiology11/23/24Te MemberRelationshipSpecialtyStart DateEnd Date Rene Cannon MD [address] [place] [address] (Fax) PCP - GeneralFamily Hqliczhf58/12/23 Roselyn Leonard MD [address] [facility] [place] [address] Hematology/Oncology11/17/24Team MemberRelationshipSpecialtyStart DateEnd Date Rene Cannon MD [address] [place] [address] (Fax) PCP - GeneralFamily Tmmjwxsp86/12/23 Roselyn Leonard MD [address] [facility] [place] [address] Hematology/Oncology11/17/24Team MemberRelationshipSpecialtyStart DateEnd Date Rene Cannon MD [address] Gayle [place], [facility] [address] (Fax) PCP - GeneralFamily Orbpvode40/12/23 Roselyn Leonard MD [address] [facility] [place] [address] Hematology/Oncology11/17/24Team MemberRelationshipSpecialtyStart DateEnd Date Rene Cannon MD [address] [facility] Nalini [place], [facility] [address] (Fax) PCP - GeneralFamily Qwnsgmir18/12/23 Roselyn Leonard MD [address] [facility] [address] [place], [facility] [address] Hematology/Oncology11/17/24Team MemberRelationshipSpecialtyStart DateEnd Date Rene Cannon MD [address] [facility] Nalini [place], [facility] [address] (Fax) PCP - GeneralFamily Sqhhpevy77/12/23 Roselyn Leonard MD [address] [facility] [place] [address] Hematology/Oncology11/17/24Team MemberRelationshipSpecialtyStart DateEnd Date Rene Cannon MD [address] [facility] [place] [place] [address] (Fax) PCP - GeneralFamily Eddebnpk80/12/23 Roselyn Leonard MD [address] [facility] [place] [address] Hematology/Oncology11/17/24Team MemberRelationshipSpecialtyStart DateEnd Date Rene Cannon MD [address] [facility] [place] [address] (Fax) PCP - GeneralFamily Hzvpcrev03/12/23 Roselyn Leonard MD [address] [facility] [place] [address] Hematology/Oncology11/17/24Team MemberRelationshipSpecialtyStart DateEnd Date Rene Cannon MD [address] [facility] [place] [address] (Fax) PCP - GeneralFamily Mjyjarez70/12/23 Roselyn Leonard MD [address] [facility] [place] [address] Hematology/Oncology11/17/24Team MemberRelationshipSpecialtyStart DateEnd Date Rene Cannon MD (Fax) PCP - GeneralFamily Medicine01/24/23 Roselyn Leonard MD [address] [facility] [place] [address] Referring PhysicianHematology and Oncology11/23/24 Jean Madsen MD [address] [facility] 2, [address] [place] [address] Referring PhysicianCardiology11/23/24Team MemberRelationshipSpecialtyStart DateEnd Date Rene Cannon MD [address] [facility] [place] [address] (Fax) PCP - GeneralFamily Yvpxpefw56/12/23 Roselyn Leonard MD [address] [facility] [place] [address] Hematology/Oncology11/17/24 Itzel Singh, [employer] [address] [facility] [place] [address] Nurse PractitionerHematology/Oncology01/22/25Team MemberRelationshipSpecialty Start DateEnd Date Rene Cannon MD [address] [facility] [place] [address] (Fax) PCP - GeneralFamily Rlnazjrb47/12/23 Roselyn Leonard MD [address] [facility] [place] [address] Hematology/Oncology11/17/24 Itzel Singh, [employer] PROMOTER.[employer] SE[employer] [address] [facility] [place] [address] Nurse PractitionerHematology/Oncology01/22/25Team MemberRelationshipSpecialty Start DateEnd Date Rene Cannon MD (Fax) PCP - GeneralFamily Medicine01/24/23 Roselyn Leonard MD [address] [facility] [place] [address] Referring PhysicianHematology and Oncology11/23/24 Jean Madsen MD [address] [facility] 2, [address] [place] [address] Referring PhysicianCardiology11/23/24Team MemberRelationshipSpecialtyStart DateEnd Date Rene Cannon MD [address] [facility] [place] [address] PCP - GeneralFamily Qyfhwdkk41/12/23 Roselyn Leonard MD [address] [facility] [place] [address] Hematology/Oncology11/17/24 Itzel Singh, [employer] PROMOTER.[employer] SEAL[employer] [address] [facility] [place] [address] Nurse PractitionerHematology/Oncology01/22/25Te MemberRelationshipSpecialty Start DateEnd Date Rene Cannon MD [address] [facility] [place] [address] (Fax) PCP - GeneralFamily Mgsxdxrq40/12/23 Roselyn Leonard MD [address] [facility] [place] [address] Hematology/Oncology11/17/24 Itzel Singh, [employer]CERT PROMOTER.[employer] SE[employer] [address] [facility] [place] [address] Nurse PractitionerHematology/Oncology01/22/25Team MemberRelationshipSpecialty Start DateEnd Date Rene Cannon MD [address] [place] [address] (Fax) PCP - GeneralFamily Waegpehr96/12/23 Roselyn Leonard MD [address] [facility] [place] [place] [address] Hematology/Oncology11/17/24 Itzel Singh, CONCERT PROMOTER.[employer] SEALER [address] [facility] [place] [place] [address] Nurse PractitionerHematology/Oncology01/22/25Team MemberRelationshipSpecialty Start DateEnd Date Rene Cannon MD [address] [place] [address] (Fax) PCP - GeneralFamily Duabguim81/12/23 Roselyn Leonard MD [address] [facility] [place] [address] Hematology/Oncology11/17/24 Itzel Singh, CONCERT PROMOTER.[employer] SEALER [address] [facility] [place] [place] [address] Nurse PractitionerHematology/Oncology01/22/25Team MemberRelationshipSpecialty Start DateEnd Date Rene Cnanon MD [address] [place] [address] (Fax) PCP - GeneralFamily Medicine01/24/23 Roselyn Leonard MD [address] [facility] [place] [address] Referring PhysicianHematology and Oncology11/23/24 Jean Madsen MD [address] [facility] 2, [address] [place] [address] Referring PhysicianCardiology11/23/24Team MemberRelationshipSpecialtyStart DateEnd Date Rene Cannon MD [address] [place] [address] Way [address] [place] [address] (Fax) PCP - GeneralFamily Medicine01/24/23 Roselyn Leonard MD [address] [place] [address] [place] [address] Referring PhysicianHematology and Oncology11/23/24 Jean Madsen MD [address] [facility] 2, [address] [place] [address] Referring PhysicianCardiology11/23/24Te MemberRelationshipSpecialtyStart DateEnd Date Rene Cannon MD [address] [place] [address] [address] [place] [address] (Fax) PCP - GeneralFamily Medicine01/24/23 Roselyn Leonard MD [address] [place] [address] [place] [address] Referring PhysicianHematology and Oncology11/23/24 Jean Madsen MD [address] [facility] 2, [address] [place] [address] Referring PhysicianCardiology11/23/24Team MemberRelationshipSpecialtyStart DateEnd Date Rene Cannon MD 112 [facility] 100 [place] [address] (Fax) PCP - GeneralFamily Medicine01/24/23 Roselyn Leonard MD [address] [facility] [place] [address] Referring PhysicianHematology and Oncology11/23/24 Jean Madsen MD [address] [facility] 2, [address] [place] [address] Referring PhysicianCardiology11/23/24Team MemberRelationshipSpecialtyStart DateEnd Date Rene Cannon MD [address] [place] [address] (Fax) PCP - GeneralFamily Hedwomkc81/12/23 Roselyn Leonard MD [address] [facility] [place] [place] [address] Hematology/Oncology11/17/24 Itzel Singh APRN.CNP [address] [facility] [place] [address] Nurse PractitionerHematology/Oncology01/22/25Team MemberRelationshipSpecialty Start DateEnd Date Rene Cannon MD [address] [facility] [place] [address] (Fax) PCP - GeneralFamily Almzimxi93/12/23 Roselyn Leonard MD [address] [facility] [place] [place] [address] Hematology/Oncology11/17/24 Itzel Singh, CONCERT PROMOTER.[employer] SEALER [address] [facility] [place] [place] [address] Nurse PractitionerHematology/Oncology01/22/25Team MemberRelationshipSpecialty Start DateEnd Date Rene Cannon MD [address] [place] [address] (Fax) PCP - GeneralFamily Ttiimogr83/12/23 Roselyn Leonard MD [address] [facility] [place] [address] Hematology/Oncology11/17/24 Itzel Singh, CONCERT PROMOTER.C[employer]ETTE C[employer]ON SEALER [address] [facility] [place] [address] Nurse PractitionerHematology/Oncology01/22/25Team MemberRelationshipSpecialty Start DateEnd Date Rene Cannon MD 112 [facility] 100 [place] [address] (Fax) PCP - GeneralFamily Medicine01/24/23 Roselyn Leonard MD [address] [facility] [place] [address] Referring PhysicianHematology and Oncology11/23/24 Jean Madsen MD 7[address] [facility] 2, [address] [place] [address] Referring PhysicianCardiology11/23/24Team MemberRelationshipSpecialtyStart DateEnd Date Rene Cannon MD [address] [place] [address] (Fax) PCP - [employer] Rene Cannon MD 112 [address] [place] [address] (Fax) PCP - GeneralFamily Medicine01/24/23 Rene Cannon MD [address] [address] (Fax) PCP - [employer] Rene Cannon MD [address] [address] (Fax) PCP - [employer] Roselyn Leonard MD [address] [place] [address] [place] [address] Referring PhysicianHematology and Oncology11/23/24 Jean Madsen MD [address] [place] [address] Referring PhysicianCardiology11/23/24Team MemberRelationshipSpecialtyStart DateEnd Date Rene Cannon MD [address] [address] (Fax) PCP - GeneralFamily Medicine01/24/23 Rene Cannon MD [address] [address] (Fax) PCP - [employer]/ Roselyn Leonard MD [address] [place] [address] [place] [address] Referring PhysicianHematology and Oncology11/23/24 Jean Madsen MD 703 [facility] 2, [facility] [address] [place] [address] Referring PhysicianCardiology11/23/24Team MemberRelationshipSpecialtyStart DateEnd Date Rene Cannon MD [address] [place] [address] (Fax) PCP - GeneralFamily Medicine01/24/23 Rene Cannon MD [address] [place] [address] (Fax) PCP - [employer]/ Roselyn Leonard MD [address] [facility] [place] [address] Referring PhysicianHematology and Oncology11/23/24 Jean Madsen MD [address] [place] [address] 2, [facility] 250 [place] [address] Referring PhysicianCardiology11/23/24Te MemberRelationshipSpecialtyStart DateEnd Rene Cannon MD [address] [place] [address] (Fax) PCP - GeneralFamily Medicine01/24/23 Rene Cannon MD [address] [place] [address] (Fax) PCP - [employer] Rene Cannon MD [address] [place] [address] (Fax) PCP - [employer] Roselyn Leonard MD [address] [place] [address] Referring PhysicianHematology and Oncology11/23/24 Jean Madsen MD 7[address] [facility] 2, [address] [place] [address] Referring PhysicianCardiology11/23/24Team MemberRelationshipSpecialtyStart DateEnd Date Rene Cannon MD [address] [place] [address] (Fax) PCP - [employer] Rene Cannon MD [address] [place] [address] (Fax) PCP - GeneralFamily Medicine01/24/23 Rene Cannon MD [address] [place] [address] (Fax) PCP - [employer] Rene Cannon MD [address] [place] [address] (Fax) PCP - [employer] Roselyn Leonard MD [address] [place] [address] Referring PhysicianHematology and Oncology11/23/24 Jean Madsen MD [address] [facility] 2, [address] [place] [address] Referring PhysicianCardiology11/23/24Team MemberRelationshipSpecialtyStart DateEnd Date Rene Cannon MD [address] [place] [address] (Fax) PCP - GeneralFamily Medicine01/24/23 Rene Cannon MD [address] [place] [address] PCP - [employer] Roselyn Leonard MD [address] [place] [address] [place] [address] Referring PhysicianHematology and Oncology11/23/24 Jean Madsen MD 703 [facility] 2, [address] [place] [address] Referring PhysicianCardiology11/23/24 Source Comments (unrecognize d section and content) In the event this informatio n is protected by the Federal Confidentiality of Alcohol and Drug Abuse Patient Records regulations: The Federal rules restrict any use of the information to criminally investigate or prosecute any alcohol or drug abuse patient.[facility] HospitalIn the event this information is protected by the Federal Confidentiality of Alcohol and Drug Abuse Patient Records regulations: The Federal rules restrict any use of the information to criminally investigate or prosecute any alcohol or drug abuse patient.[facility] HospitalIn the event this information is protected by the Federal Confidentiality of Alcohol and Drug Abuse Patient Records regulations: The Federal rules restrict any use of the information to criminally investigate or prosecute any alcohol or drug abuse patient.[facility] HospitalIn the event this information is protected by the Federal Confidentiality of Alcohol and Drug Abuse Patient Records regulations: The Federal rules restrict any use of the information to criminally investigate or prosecute any alcohol or drug abuse patient.[facility] HospitalIn the event this information is protected by the Federal Confidentiality of Alcohol and Drug Abuse Patient Records regulations: The Federal rules restrict any use of the information to criminally investigate or prosecute any alcohol or drug abuse patient.[facility] HospitalIn the event this information is protected by the Federal Confidentiality of Alcohol and Drug Abuse Patient Records regulations: The Federal rules restrict any use of the information to criminally investigate or prosecute any alcohol or drug abuse patient.[facility] HospitalIn the event this information is protected by the Federal Confidentiality of Alcohol and Drug Abuse Patient Records regulations: The Federal rules restrict any use of the information to criminally investigate or prosecute any alcohol or drug abuse patient.[facility] HospitalIn the event this information is protected by the Federal Confidentiality of Alcohol and Drug Abuse Patient Records regulations: The Federal rules restrict any use of the information to criminally investigate or prosecute any alcohol or drug abuse patient.[facility] HospitalIn the event this information is protected by the Federal Confidentiality of Alcohol and Drug Abuse Patient Records regulations: The Federal rules restrict any use of the information to criminally investigate or prosecute any alcohol or drug abuse patient.[facility] HospitalIn the event this information is protected by the Federal Confidentiality of Alcohol and Drug Abuse Patient Records regulations: The Federal rules restrict any use of the information to criminally investigate or prosecute any alcohol or drug abuse patient.[facility] HospitalIn the event this information is protected by the Federal Confidentiality of Alcohol and Drug Abuse Patient Records regulations: The Federal rules restrict any use of the information to criminally investigate or prosecute any alcohol or drug abuse patient.[facility] HospitalIn the event this information is protected by the Federal Confidentiality of Alcohol and Drug Abuse Patient Records regulations: The Federal rules restrict any use of the information to criminally investigate or prosecute any alcohol or drug abuse patient.[facility] HospitalIn the event this information is protected by the Federal Confidentiality of Alcohol and Drug Abuse Patient Records regulations: The Federal rules restrict any use of the information to criminally investigate or prosecute any alcohol or drug abuse patient.[facility] HospitalIn the event this information is protected by the Federal Confidentiality of Alcohol and Drug Abuse Patient Records regulations: The Federal rules restrict any use of the information to criminally investigate or prosecute any alcohol or drug abuse patient.[facility] HospitalIn the event this information is protected by the Federal Confidentiality of Alcohol and Drug Abuse Patient Records regulations: The Federal rules restrict any use of the information to criminally investigate or prosecute any alcohol or drug abuse patient.[facility] HospitalIn the event this information is protected by the Federal Confidentiality of Alcohol and Drug Abuse Patient Records regulations: The Federal rules restrict any use of the information to criminally investigate or prosecute any alcohol or drug abuse patient.[facility] HospitalIn the event this information is protected by the Federal Confidentiality of Alcohol and Drug Abuse Patient Records regulations: The Federal rules restrict any use of the information to criminally investigate or prosecute any alcohol or drug abuse patient.[facility] HospitalIn the event this information is protected by the Federal Confidentiality of Alcohol and Drug Abuse Patient Records regulations: The Federal rules restrict any use of the information to criminally investigate or prosecute any alcohol or drug abuse patient.[facility] HospitalIn the event this information is protected by the Federal Confidentiality of Alcohol and Drug Abuse Patient Records regulations: The Federal rules restrict any use of the information to criminally investigate or prosecute any alcohol or drug abuse patient.[facility] HospitalIn the event this information is protected by the Federal Confidentiality of Alcohol and Drug Abuse Patient Records regulations: The Federal rules restrict any use of the information to criminally investigate or prosecute any alcohol or drug abuse patient.[facility] HospitalIn the event this information is protected by the Federal Confidentiality of Alcohol and Drug Abuse Patient Records regulations: The Federal rules restrict any use of the information to criminally investigate or prosecute any alcohol or drug abuse patient.[facility] HospitalIn the event this information is protected by the Federal Confidentiality of Alcohol and Drug Abuse Patient Records regulations: The Federal rules restrict any use of the information to criminally investigate or prosecute any alcohol or drug abuse patient.[facility] HospitalIn the event this information is protected by the Federal Confidentiality of Alcohol and Drug Abuse Patient Records regulations: The Federal rules restrict any use of the information to criminally investigate or prosecute any alcohol or drug abuse patient.[facility] HospitalIn the event this information is protected by the Federal Confidentiality of Alcohol and Drug Abuse Patient Records regulations: The Federal rules restrict any use of the information to criminally investigate or prosecute any alcohol or drug abuse patient.[facility] HospitalIn the event this information is protected by the Federal Confidentiality of Alcohol and Drug Abuse Patient Records regulations: The Federal rules restrict any use of the information to criminally investigate or prosecute any alcohol or drug abuse patient.[facility] HospitalIn the event this information is protected by the Federal Confidentiality of Alcohol and Drug Abuse Patient Records regulations: The Federal rules restrict any use of the information to criminally investigate or prosecute any alcohol or drug abuse patient.[facility] HospitalIn the event this information is protected by the Federal Confidentiality of Alcohol and Drug Abuse Patient Records regulations: The Federal rules restrict any use of the information to criminally investigate or prosecute any alcohol or drug abuse patient.[facility] HospitalIn the event this information is protected by the Federal Confidentiality of Alcohol and Drug Abuse Patient Records regulations: The Federal rules restrict any use of the information to criminally investigate or prosecute any alcohol or drug abuse patient.[facility] HospitalIn the event this information is protected by the Federal Confidentiality of Alcohol and Drug Abuse Patient Records regulations: The Federal rules restrict any use of the information to criminally investigate or prosecute any alcohol or drug abuse patient.[facility] HospitalIn the event this information is protected by the Federal Confidentiality of Alcohol and Drug Abuse Patient Records regulations: The Federal rules restrict any use of the information to criminally investigate or prosecute any alcohol or drug abuse patient.[facility] HospitalIn the event this information is protected by the Federal Confidentiality of Alcohol and Drug Abuse Patient Records regulations: The Federal rules restrict any use of the information to criminally investigate or prosecute any alcohol or drug abuse patient.[facility] HospitalIn the event this information is protected by the Federal Confidentiality of Alcohol and Drug Abuse Patient Records regulations: The Federal rules restrict any use of the information to criminally investigate or prosecute any alcohol or drug abuse patient.[facility] HospitalIn the event this information is protected by the Federal Confidentiality of Alcohol and Drug Abuse Patient Records regulations: The Federal rules restrict any use of the information to criminally investigate or prosecute any alcohol or drug abuse patient.[facility] HospitalIn the event this information is protected by the Federal Confidentiality of Alcohol and Drug Abuse Patient Records regulations: The Federal rules restrict any use of the information to criminally investigate or prosecute any alcohol or drug abuse patient.[facility] HospitalIn the event this information is protected by the Federal Confidentiality of Alcohol and Drug Abuse Patient Records regulations: The Federal rules restrict any use of the information to criminally investigate or prosecute any alcohol or drug abuse patient.[facility] HospitalIn the event this information is protected by the Federal Confidentiality of Alcohol and Drug Abuse Patient Records regulations: The Federal rules restrict any use of the information to criminally investigate or prosecute any alcohol or drug abuse patient.[facility] HospitalIn the event this information is protected by the Federal Confidentiality of Alcohol and Drug Abuse Patient Records regulations: The Federal rules restrict any use of the information to criminally investigate or prosecute any alcohol or drug abuse patient.[facility] HospitalIn the event this information is protected by the Federal Confidentiality of Alcohol and Drug Abuse Patient Records regulations: The Federal rules restrict any use of the information to criminally investigate or prosecute any alcohol or drug abuse patient.[facility] HospitalIn the event this information is protected by the Federal Confidentiality of Alcohol and Drug Abuse Patient Records regulations: The Federal rules restrict any use of the information to criminally investigate or prosecute any alcohol or drug abuse patient.[facility] HospitalIn the event this information is protected by the Federal Confidentiality of Alcohol and Drug Abuse Patient Records regulations: The Federal rules restrict any use of the information to criminally investigate or prosecute any alcohol or drug abuse patient.[facility] HospitalIn the event this information is protected by the Federal Confidentiality of Alcohol and Drug Abuse Patient Records regulations: The Federal rules restrict any use of the information to criminally investigate or prosecute any alcohol or drug abuse patient.[facility] HospitalIn the event this information is protected by the Federal Confidentiality of Alcohol and Drug Abuse Patient Records regulations: The Federal rules restrict any use of the information to criminally investigate or prosecute any alcohol or drug abuse patient.[facility] HospitalIn the event this information is protected by the Federal Confidentiality of Alcohol and Drug Abuse Patient Records regulations: The Federal rules restrict any use of the information to criminally investigate or prosecute any alcohol or drug abuse patient.[facility] HospitalIn the event this information is protected by the Federal Confidentiality of Alcohol and Drug Abuse Patient Records regulations: The Federal rules restrict any use of the information to criminally investigate or prosecute any alcohol or drug abuse patient.[facility] HospitalIn the event this information is protected by the Federal Confidentiality of Alcohol and Drug Abuse Patient Records regulations: The Federal rules restrict any use of the information to criminally investigate or prosecute any alcohol or drug abuse patient.[facility] HospitalIn the event this information is protected by the Federal Confidentiality of Alcohol and Drug Abuse Patient Records regulations: The Federal rules restrict any use of the information to criminally investigate or prosecute any alcohol or drug abuse patient.[facility] HospitalIn the event this information is protected by the Federal Confidentiality of Alcohol and Drug Abuse Patient Records regulations: The Federal rules restrict any use of the information to criminally investigate or prosecute any alcohol or drug abuse patient.[facility] HospitalIn the event this information is protected by the Federal Confidentiality of Alcohol and Drug Abuse Patient Records regulations: The Federal rules restrict any use of the information to criminally investigate or prosecute any alcohol or drug abuse patient.[facility] HospitalIn the event this information is protected by the Federal Confidentiality of Alcohol and Drug Abuse Patient Records regulations: The Federal rules restrict any use of the information to criminally investigate or prosecute any alcohol or drug abuse patient.[facility] HospitalIn the event this information is protected by the Federal Confidentiality of Alcohol and Drug Abuse Patient Records regulations: The Federal rules restrict any use of the information to criminally investigate or prosecute any alcohol or drug abuse patient.[facility] HospitalIn the event this information is protected by the Federal Confidentiality of Alcohol and Drug Abuse Patient Records regulations: The Federal rules restrict any use of the information to criminally investigate or prosecute any alcohol or drug abuse patient.[facility] HospitalIn the event this information is protected by the Federal Confidentiality of Alcohol and Drug Abuse Patient Records regulations: The Federal rules restrict any use of the information to criminally investigate or prosecute any alcohol or drug abuse patient.[facility] HospitalIn the event this information is protected by the Federal Confidentiality of Alcohol and Drug Abuse Patient Records regulations: The Federal rules restrict any use of the information to criminally investigate or prosecute any alcohol or drug abuse patient.[facility] HospitalIn the event this information is protected by the Federal Confidentiality of Alcohol and Drug Abuse Patient Records regulations: The Federal rules restrict any use of the information to criminally investigate or prosecute any alcohol or drug abuse patient.[facility] HospitalIn the event this information is protected by the Federal Confidentiality of Alcohol and Drug Abuse Patient Records regulations: The Federal rules restrict any use of the information to criminally investigate or prosecute any alcohol or drug abuse patient.[facility] HospitalIn the event this information is protected by the Federal Confidentiality of Alcohol and Drug Abuse Patient Records regulations: The Federal rules restrict any use of the information to criminally investigate or prosecute any alcohol or drug abuse patient.[facility] HospitalIn the event this information is protected by the Federal Confidentiality of Alcohol and Drug Abuse Patient Records regulations: The Federal rules restrict any use of the information to criminally investigate or prosecute any alcohol or drug abuse patient.[facility] HospitalIn the event this information is protected by the Federal Confidentiality of Alcohol and Drug Abuse Patient Records regulations: The Federal rules restrict any use of the information to criminally investigate or prosecute any alcohol or drug abuse patient.[facility] HospitalIn the event this information is protected by the Federal Confidentiality of Alcohol and Drug Abuse Patient Records regulations: The Federal rules restrict any use of the information to criminally investigate or prosecute any alcohol or drug abuse patient.[facility] HospitalIn the event this information is protected by the Federal Confidentiality of Alcohol and Drug Abuse Patient Records regulations: The Federal rules restrict any use of the information to criminally investigate or prosecute any alcohol or drug abuse patient.[facility] HospitalIn the event this information is protected by the Federal Confidentiality of Alcohol and Drug Abuse Patient Records regulations: The Federal rules restrict any use of the information to criminally investigate or prosecute any alcohol or drug abuse patient.[facility] HospitalIn the event this information is protected by the Federal Confidentiality of Alcohol and Drug Abuse Patient Records regulations: The Federal rules restrict any use of the information to criminally investigate or prosecute any alcohol or drug abuse patient.[facility] HospitalIn the event this information is protected by the Federal Confidentiality of Alcohol and Drug Abuse Patient Records regulations: The Federal rules restrict any use of the information to criminally investigate or prosecute any alcohol or drug abuse patient.[facility] HospitalIn the event this information is protected by the Federal Confidentiality of Alcohol and Drug Abuse Patient Records regulations: The Federal rules restrict any use of the information to criminally investigate or prosecute any alcohol or drug abuse patient.[facility] HospitalIn the event this information is protected by the Federal Confidentiality of Alcohol and Drug Abuse Patient Records regulations: The Federal rules restrict any use of the information to criminally investigate or prosecute any alcohol or drug abuse patient.[facility] HospitalIn the event this information is protected by the Federal Confidentiality of Alcohol and Drug Abuse Patient Records regulations: The Federal rules restrict any use of the information to criminally investigate or prosecute any alcohol or drug abuse patient.[facility] HospitalIn the event this information is protected by the Federal Confidentiality of Alcohol and Drug Abuse Patient Records regulations: The Federal rules restrict any use of the information to criminally investigate or prosecute any alcohol or drug abuse patient.[facility] HospitalIn the event this information is protected by the Federal Confidentiality of Alcohol and Drug Abuse Patient Records regulations: The Federal rules restrict any use of the information to criminally investigate or prosecute any alcohol or drug abuse patient.[facility] HospitalIn the event this information is protected by the Federal Confidentiality of Alcohol and Drug Abuse Patient Records regulations: The Federal rules restrict any use of the information to criminally investigate or prosecute any alcohol or drug abuse patient.[facility] HospitalIn the event this information is protected by the Federal Confidentiality of Alcohol and Drug Abuse Patient Records regulations: The Federal rules restrict any use of the information to criminally investigate or prosecute any alcohol or drug abuse patient.[facility] HospitalIn the event this information is protected by the Federal Confidentiality of Alcohol and Drug Abuse Patient Records regulations: The Federal rules restrict any use of the information to criminally investigate or prosecute any alcohol or drug abuse patient.[facility] HospitalIn the event this information is protected by the Federal Confidentiality of Alcohol and Drug Abuse Patient Records regulations: The Federal rules restrict any use of the information to criminally investigate or prosecute any alcohol or drug abuse patient.[facility] HospitalIn the event this information is protected by the Federal Confidentiality of Alcohol and Drug Abuse Patient Records regulations: The Federal rules restrict any use of the information to criminally investigate or prosecute any alcohol or drug abuse patient.[facility] HospitalIn the event this information is protected by the Federal Confidentiality of Alcohol and Drug Abuse Patient Records regulations: The Federal rules restrict any use of the information to criminally investigate or prosecute any alcohol or drug abuse patient.[facility] HospitalIn the event this information is protected by the Federal Confidentiality of Alcohol and Drug Abuse Patient Records regulations: The Federal rules restrict any use of the information to criminally investigate or prosecute any alcohol or drug abuse patient.[facility] HospitalIn the event this information is protected by the Federal Confidentiality of Alcohol and Drug Abuse Patient Records regulations: The Federal rules restrict any use of the information to criminally investigate or prosecute any alcohol or drug abuse patient.[facility] HospitalIn the event this information is protected by the Federal Confidentiality of Alcohol and Drug Abuse Patient Records regulations: The Federal rules restrict any use of the information to criminally investigate or prosecute any alcohol or drug abuse patient.[facility] Inactive Administered Medications - up to 3 most recent administrations Administered Medications (un recognized section and content) Medication OrderMAR ActionAction DateDoseRateSite octreotide LAR 20 mg depot (monthly) injection (SandoSTATIN LAR) 20 mg, INTRAMUSCULAR, ONCE, 1 dose, On Fri12/03/23 at 1600, REFRIGERATE - PROTECT FROM LIGHT Given12/03/2023 4:08 PM EDT20 mgButtocks, Left Goals (unrecognized section and content) Goals [...] BE BASED ON THE PRIMARY CLINICAL RECORDS. [employer] [facility] provides no warranty or guarantee of the accuracy or completeness of information in this document.
[2025-08-20] MEDS: PANTOPRAZOLE SODIUM 40 MG VIAL IV ×2 (07:23→08:18)
[2025-08-20] MEDS: MULTIVIT INFUSN,ADULT 4,VIT K 10 ML, FOLIC ACID 1 MG, THIAMINE HCL 100 MG in DEXTROSE 5... 1000 ML IV (07:26)
[2025-08-20 07:32] LABS: Basophils Abs Manual 0.00 10^3/uL (0.00-0.10); Basophils Percent Manual 0.0 % (0.2-2.0); Eosinophils Absolute Manual 0.29 10^3/uL (0.00-0.70); Eosinophils Percent Manual 4.0 % (0.9-7.0); Lymphocytes Absolute Manual 0.29 10^3/uL (1.20-3.80); Lymphocytes Percent Manual 4.0 % (20.5-60.0); Monocytes Absolute Manual 0.74 10^3/uL (0.30-0.80); Monocytes Percent Manual 10.0 % (1.7-12.0); Segmented Neut Absolute Manual 6.06 10^3/uL (1.4-6.5); Segmented Neutrophils % Manual 82.0 (43.0-75.0)
[2025-08-20 07:43] LABS: INR 1.09; Partial Thromboplastin Time 25.9 sec (22.3-36.2); Prothrombin Time 11.4 sec (9.0-11.6)
[2025-08-20] MEDS: MORPHINE SULFATE 2 MG/ML SYRINGE IV (08:18)
[2025-08-20] MEDS: MORPHINE SULFATE 4 MG/ML VIAL IV ×2 (09:21→16:03)
[2025-08-20] MEDS: 0.9 % SODIUM CHLORIDE 1,000 ML 1000 ML IV (15:36)
[2025-08-20 16:14] LABS: Hematocrit 31.7 % (42.0-54.0); Hemoglobin 10.4 g/dL (14.0-18.0)
[2025-08-20] MEDS: DIPHENHYDRAMINE HCL 50 MG/ML VIAL 25 MG IVP (18:36)
== END 2025-08-20 18:57 | disposition short-term general hospital (02) ==
PROVIDERS: Student in an Organized Health Care Education/Training Program; Emergency Provider Emergency Medicine; PCP Family Medicine
DX: K29.01 Acute gastritis with bleeding (principal); Z85.030 Personal history of malignant carcinoid tumor of large intestine; K92.1 Melena; K92.0 Hematemesis
CPT/HCPCS: 36415; 74177; 80053; 83690; 83735; 85007; 85014; 85018; 85027; 85610; 85730; 86850; 86900; 86901; 96365; 96366; 96368; 96375; 96376; 99285; J0696; J1200; J2270; J2354; J2405; J3411; Q9967